=== PATIENT | male | born 1950 | race Caucasian/White ===

== ENCOUNTER 2018-06-10 12:41 | Emergency (ER) | payer OTHER ==
--- OUTSIDE RECORDS SUMMARY | 2018-06-10 12:43 | XMS REPORT | Clinical Summary ---
:1950 Author Organization [facility] Address [address] [place] [address] Care Team Providers Name Role Phone Alanna Bullard Primary Care Provider Allergies No Known Allergies Medications Medication Sig Dispensed Refills Start Date End Date Status DEXILANT 60 mg Take 60 mg 0 09/29/2016 Active capsule by mouth daily. albuterol (PROAIR Inhale 2 0 Active HFA,PROVENTIL puffs every HFA,VENTOLIN HFA) 90 6 (six) mcg/actuation inhaler hours as needed for wheezing. budesonide-formoterol Inhale 2 0 Active (SYMBICORT) 160-4.5 puffs daily. mcg/actuation inhaler tadalafil (CIALIS) 20 Take 20 mg 0 Active mg tablet by mouth daily as needed. aspirin (ECOTRIN) 81 Take 81 mg 0 Active MG enteric coated by mouth tablet daily. omega-3 fatty Take 1 g by 0 Active acids-fish oil (FISH mouth daily. OIL) 300-1,000 mg capsule multivitamin Take 1 0 Active (THERAGRAN) tablet tablet by mouth daily. pseudoepHEDrine Take 30 mg 0 Active (SUDAFED) 30 MG by mouth tablet every 4 (four) hours as needed for congestion. JENTADUETO 2.5-1,000 0 03/16/2017 Active mg tablet ferrous sulfate 325 Take 325 mg 0 Active (65 FE) MG tablet by mouth daily with breakfast. fenofibrate (LOFIBRA) Take 1 90 tablet 3 05/31/2018 Active 54 MG tablet tablet (54 mg total) by mouth nightly. simvastatin (ZOCOR) Take 1 90 tablet 3 05/31/2018 Active 10 MG tablet tablet (10 mg total) by mouth nightly. clopidogrel (PLAVIX) Take 1 90 tablet 3 05/31/2018 Active 75 mg tablet tablet (75 mg total) by mouth daily. simvastatin (ZOCOR) Take 1 90 tablet 3 04/10/2017 05/31/2018 Discontinued 10 MG tablet tablet (10 mg total) by mouth nightly. fenofibrate (LOFIBRA) Take 1 90 tablet 3 04/10/2017 05/31/2018 Discontinued 54 MG tablet tablet (54 mg total) by mouth nightly. clopidogrel (PLAVIX) Take 1 90 tablet 3 04/20/2017 04/20/2018 75 mg tablet tablet (75 mg total) by mouth daily. clopidogrel (PLAVIX) Take 75 mg 0 05/31/2018 Discontinued 75 mg tablet by mouth daily. Active Problems Problem Noted Date Coronary artery disease involving [place] coronary artery of [place] heart 10/10 without angina pectoris PAD (peripheral artery disease) 10/10/2016 Bilateral carotid artery disease 10/10/2016 Encounters Date Type Specialty Care Team Description 05/31/2018 Orders Only Cardiology Martin Tolentino MA 05/31/2018 Refill Cardiology Venkat Davis MD Med Refill 05/31/2018 Refill Neli Han MD 05/31/2018 Refill Cardiology Venkat Davis MD Med Refill 04/16/2018 Office Visit Cardiology Venkat Davis MD PAD (peripheral artery disease) (HCC) (Primary Dx); Coronary artery disease involving [place] coronary artery of [place] heart without angina pectoris 10/16/2017 Office Visit Cardiology Venkat Davis MD PAD (peripheral artery disease) (Primary Dx); Coronary artery disease involving [place] coronary artery of [place] heart without angina pectoris; Bilateral carotid artery disease after 06/09/2017 Immunizations Name Dates Previously Given Next Due Influenza Trivalent 03/15/2017 Family History Medical History Relation Name Comments COPD Father Emphysema Father Breast cancer Mother Diabetes Mother Heart disease Mother Hyperlipidemia Mother Relation Name Status Comments Father Mother Social History Tobacco Use Types Packs/Day Years Used Date Current Every Day Smoker Cigarettes 1.5 Started: 10/19/2016 Smokeless Tobacco: Never Used Tobacco Cessation: Ready to Quit: No; Counseling Given: Yes Alcohol Use Drinks/Week oz/Week Comments No Sex Assigned at Date Recorded Not on file Job Start Date Occupation Industry Not on file Not on file Not on file Travel History Travel Start Travel End No recent travel history available. Last Filed Vital Signs Vital Sign Reading Time Taken Blood Pressure 138/62 04/16/2018 10:21 AM DATA CAPTURE CLERK Pulse 87 04/16/2018 10:21 AM DATA CAPTURE CLERK Temperature - - Respiratory Rate - - Oxygen Saturation - - Inhaled Oxygen Concentration - - Weight 77.1 kg (170 lb) 04/16/2018 10:21 AM DATA CAPTURE CLERK Height 167.6 cm (5' 6") 04/16/2018 10:21 AM DATA CAPTURE CLERK Body Mass Index 27.44 04/16/2018 10:21 AM DATA CAPTURE CLERK Plan of Treatment Date Type Specialty Care Team Description 10/22/2018 Office Visit Cardiology Venkat Davis MD [address] [address] Health Maintenance Due Date Last Done Comments COLON CANCER SCREENING 1999 SHINGLES VACCINES (1 of 2) 1999 PNEUMOCOCCAL POLYSACCHARIDE VACCINE AGE 65 AND OVER 2014 PNEUMOCOCCAL-13 2014 INFLUENZA VACCINE 01/02/2018 03/15/2017 Implants Implanted Type Area [employer] Identity Management Consultant Device Shelf Model / Identifier Expiration Serial / Date Lot Stent Bili Protege Everflex Slf-Xpndbl 120cm [id number] - [id number] Coronary N/A : N/A [employer] 09/12/2018 [id number] 120 / Implanted: 10/19/2016 (Quantity not on file) Stents / [id number] Stent Vasclr Lfstnt Slf-Xpndbl 130cm [id number] Cath - [id number] Peripheral or N /A: N/A BARD PERIPHERAL 03/19/2017 [id number] / Implanted: 10/19/2016 (Quantity not on file) Biliary Stents VASCULAR / [id number] Results Not on fileafter 06/09/2017 Insurance Payer Benefit Plan / Group Subscriber ID Type Phone Address MEDICARE MEDICARE PART A AND B xxxxxxxxxx Medicare [place], [place] [employer] xxxxxxxx Commercial Advance Directives Patient has advance care planning documents on file. For more information, please contact:Douglas Dougherty[address] [place] [address]
[2018-06-10] MEDS ORDERED: ALBUTEROL 2.5 MG/3 ML NEB SOL ONE (15:53)
[2018-06-10] MEDS ORDERED: IPRATROPIUM BROM 0.5MG/2.5ML ONE (15:53)
[2018-06-10] MEDS ORDERED: predniSONE 20 MG TAB ONE (15:54)
[2018-06-10 15:57] LABS: Absolute Lymphocytes (CBC) 1.2 K/uL (0.7-4.9); Absolute Monocytes 0.7 K/uL (0.1-1.3); Absolute Neutrophil 5.8 K/uL (1.8-8.0); Basophils % 0.9 % (0-1.3); Eosinophils % 1.9 % (0-4.4); Hematocrit 34.3 % (39.6-49.0); MPV 9.1 fL (7.6-11.3); Monocytes % 8.8 % (3.3-12.3); RBC Red Blood Cell Count 4.01 M/uL (4.33-5.43)
--- NOTE | 2018-06-10 16:01 | EKG ---
Test Date: 2018-06-10 Test Time: 15:38:36 [facility] Demonstration Agent: REDDY MEASUREMENT RESULTS: Intervals: Rate: 87 CT: 160 QRSD: 98 QT: 366 QTc: 440 [place]: P: 82 CT: 160 QRS: 79 T: 66 INTERPRETIVE STATEMENTS: Normal sinus rhythm Normal ECG Compared to ECG 09/11/2001 16:15:00 No significant changes Electronically Signed On 06-10-18 16:01:08 SAW STRAIGHTENER by Yousuf Santoyo
[2018-06-10 16:13] LABS: BUN Blood Urea Nitrogen 11 mg/dL (7-18); Bicarbonate 27 mmol/L (21-32); Glucose Level 117 mg/dL (74-106); Magnesium 2.4 mg/dL (1.8-2.4); NT PRO-BNP 89 pg/mL (<125); Potassium 3.8 mmol/L (3.5-5.1); Sodium Level 134 mmol/L (136-145); Troponin (Emerg Dept Use Only) < 0.02 ng/mL (0.0-0.045)
--- NOTE | 2018-06-10 17:13 | RAD REPORT ---
EXAM DESCRIPTION: Garry Rhodes (2 Views)06/10/2018 5:03 pm CLINICAL HISTORY: sob COMPARISON: None FINDINGS: The lungs appear clear of acute infiltrate. The heart is normal size IMPRESSION: No acute abnormalities displayed
--- NOTE | 2018-06-10 17:22 | ER ---
Nurse's Notes [facility] Name: Roland Lam Age: 68 yrs Sex: Male : 1950 Arrival Date: 06/10/2018 Time: 12:47 Bed 4 Private MD: None, None Diagnosis: Chronic obstructive pulmonary disease with (acute) exacerbation Presentation: 06/10 13:07 Presenting complaint: Patient states: shortness of breath when laying flat and/or ss exertion and chest congestion x 10 days. Denies fever. Also c/o sore throat and R ear pain x 2-3 days. Transition of care: patient was not received from another setting of care. Onset of symptoms was May 28, 2018. Risk Assessment: Do you want to hurt yourself or someone else? Patient reports no desire to harm self or others. Initial Sepsis Screen: Does the patient meet any 2 criteria? No. Patient's initial sepsis screen is negative. Does the patient have a suspected source of infection? No. Patient's initial sepsis screen is negative. Care prior to arrival: None. 13:07 Method Of Arrival: Ambulatory ss 13:07 Acuity: HOWARD 3 ss Triage Assessment: 17:00 General: Appears in no apparent distress. Behavior is calm, cooperative. Respiratory: iw Reports shortness of breath cough that is Onset: The symptoms/episode began/occurred yesterday, the patient has mild shortness of breath. Historical: - Allergies: 13:10 No Known Allergies; ss - PMHx: 13:10 COPD; Diabetes - NIDDM; High Cholesterol; CAD; ss - PSHx: 13:10 cardiac stents; Cholecystectomy; ss - Immunization history:: Adult Immunizations up to date. - Social history:: Smoking status: Patient uses tobacco products, 1 ppd- 1.5 ppd. - Ebola Screening: : Patient denies exposure to infectious person Patient denies travel to an Ebola-affected area in the 21 days before illness onset. Screenin:30 Abuse screen: Denies threats or abuse. Denies injuries from another. Nutritional sg screening: No deficits noted. Tuberculosis screening: No symptoms or risk factors identified. Never had TB. Fall Risk None identified. Assessment: 15:00 General: Appears in no apparent distress. comfortable, well groomed, well developed, sg well nourished, Behavior is calm, cooperative, appropriate for age. Pain: Complains of pain in sore throat Quality of pain is described as tender, worsens with swallowing. Neuro: No deficits noted. Cardiovascular: Heart tones S1 S2 present Capillary refill is brisk in bilateral fingers Patient's skin is warm and dry. Rhythm is sinus rhythm. Respiratory: Airway is patent Respiratory effort is even, unlabored, Respiratory pattern is regular, symmetrical, Breath sounds are coarse. GI: No signs and/or symptoms were reported involving the gastrointestinal system. : No signs and/or symptoms were reported regarding the genitourinary system. EENT: Nares are clear bilaterally Oral mucosa is moist. Throat is clear. Derm: Skin is pink, warm \T\ dry. Musculoskeletal: No signs and/or symptoms reported regarding the musculoskeletal system. Vital Signs: 13:10 BP 152 / 58; Pulse 91; Resp 17; Temp 97.0(TE); Pulse Ox 99% on R/A; Weight 72.57 kg; ss Height 5 ft. 6 in. (167.64 cm); Pain 0/10; 15:00 BP 142 / 66; Pulse 78; Resp 17; Temp 97.0; Pulse Ox 100% on R/A; sg 13:10 Body Mass Index 25.82 (72.57 kg, 167.64 cm) ss ED Course: 12:47 Patient arrived in ED. sb2 12:47 None, None is Private Physician. sb2 13:08 Triage completed. ss 13:10 Arm band placed on right wrist. ss 15:00 Patient has correct armband on for positive identification. iw 15:02 Carmina Rutherford [facility]-C [facility] kb 15:02 Jair Fletcher MD is Attending Physician. kb 15:04 Shana Hollingsworth, KWAN is Primary Nurse. iw 15:45 EKG done, by ct scan technician. reviewed by Carmina KILPATRICK. dt2 17:03 Chest Pa And Lat (2 Views) XRAY In Process Unspecified. EDMS 17:30 No provider procedures requiring assistance completed. IV discontinued, intact, sg bleeding controlled, No redness/swelling at site. Pressure dressing applied. Administered Medications: 15:54 Drug: Albuterol 2.5 mg Route: Inhalation; iw 15:54 Drug: AtroVENT Aerosol 0.5 mg Route: Inhalation; iw 15:54 Drug: predniSONE 40 mg Route: PO; iw Outcome: 17:21 Discharge ordered by . wilfredo 17:30 Discharged to home ambulatory, with family. sg 17:30 Condition: good 17:30 Discharge instructions given to patient, Instructed on discharge instructions, follow up and referral plans. medication usage, safety practices, Demonstrated understanding of instructions, follow-up care, Prescriptions given X 2. 17:33 Patient left the ED. Signatures: Dispatcher [employer] EDIL Carmina Rutherford, PERSONNEL RESEARCH SCIENTIST-C PERSONNEL RESEARCH SCIENTIST-Chip Aguilar RN RN Shana Hollingsworth RN RN iw Smirch, Shelby, RN RN Tayler Owens sb2 Gardenia Duncan dt2
--- NOTE | 2018-06-10 17:22 | EDPHYS ---
Physician Documentation [facility] Name: Roland Lam Age: 68 yrs Sex: Male : 1950 Arrival Date: 06/10/2018 Time: 12:47 Bed 4 Private MD: None, None ED Physician Jair Fletcher HPI: 06/10 16:02 This 68 yrs old Male presents to ER via Ambulatory with complaints of kb Shortness Of Breath, Sore Throat. 16:01 The patient has shortness of breath with light activity, and the patient has a history kb of COPD. Duration: The symptoms are continuous. The patient has not experienced similar symptoms in the past. The patient has not recently seen a physician. 16:02 Onset: The symptoms/episode began/occurred 10 day(s) ago. The patient's shortness of kb breath is aggravated by exertion, light activity, walking, is alleviated by rest. Associated signs and symptoms: Pertinent positives: productive cough, Pertinent negatives: chest pain, non-productive cough, diaphoresis, dizziness, fever, hemoptysis, loss of consciousness, nausea, numbness in extremities, visual changes, vomiting. Severity of symptoms: At their worst the symptoms were moderate in the emergency department the symptoms are unchanged. Pt reports shortness of breath for over a week that has been getting worse. Reports productive cough with green sputum. Denies fever. Denies orthopnea. States he got up in the middle of the night to use the restroom, became short of breath after walking back and forth so he had to catch his breath before laying back down to go to sleep. Historical: - Allergies: 13:10 No Known Allergies; ss - PMHx: 13:10 COPD; Diabetes - NIDDM; High Cholesterol; CAD; ss - PSHx: 13:10 cardiac stents; Cholecystectomy; ss - Immunization history:: Adult Immunizations up to date. - Social history:: Smoking status: Patient uses tobacco products, 1 ppd- 1.5 ppd. - Ebola Screening: : Patient denies exposure to infectious person Patient denies travel to an Ebola-affected area in the 21 days before illness onset. ROS: 15:59 Constitutional: Negative for fever, chills, and weight loss, Neck: Negative for injury, kb pain, and swelling, Cardiovascular: Negative for chest pain, palpitations, and edema, Abdomen/GI: Negative for abdominal pain, nausea, vomiting, diarrhea, and constipation, Back: Negative for injury and pain, : Negative for injury, bleeding, discharge, and swelling, MS/Extremity: Negative for injury and deformity, Skin: Negative for injury, rash, and discoloration, Neuro: Negative for headache, weakness, numbness, tingling, and seizure. 15:59 ENT: Positive for ear pain, sore throat. 15:59 Respiratory: Positive for cough, with green sputum, dyspnea on exertion, shortness of breath, Negative for hemoptysis, orthopnea, pleurisy, sputum production, wheezing. Exam: 16:00 Constitutional: This is a well developed, well nourished patient who is awake, alert, kb and in no acute distress. Head/Face: Normocephalic, atraumatic. ENT: Nares patent. No nasal discharge, no septal abnormalities noted. Tympanic membranes are normal and external auditory canals are clear. Oropharynx with no redness, swelling, or masses, exudates, or evidence of obstruction, uvula midline. Mucous membranes moist. Neck: Trachea midline, no thyromegaly or masses palpated, and no cervical lymphadenopathy. Supple, full range of motion without nuchal rigidity, or vertebral point tenderness. No Meningismus. Chest/axilla: Normal chest wall appearance and motion. Nontender with no deformity. No lesions are appreciated. Cardiovascular: Regular rate and rhythm with a normal S1 and S2. No gallops, murmurs, or rubs. Normal PMI, no JVD. No pulse deficits. Abdomen/GI: Soft, non-tender, with normal bowel sounds. No distension or tympany. No guarding or rebound. No evidence of tenderness throughout. Skin: Warm, dry with normal turgor. Normal color with no rashes, no lesions, and no evidence of cellulitis. MS/ Extremity: Pulses equal, no cyanosis. Neurovascular intact. Full, normal range of motion. Neuro: Awake and alert, GCS 15, oriented to person, place, time, and situation. Cranial nerves II-XII grossly intact. Motor strength 5/5 in all extremities. Sensory grossly intact. Cerebellar exam normal. Normal gait. 16:00 Respiratory: the patient does not display signs of respiratory distress, Respirations: normal, Breath sounds: decreased breath sounds, that are mild, that are moderate, are located in both bases. Vital Signs: 13:10 BP 152 / 58; Pulse 91; Resp 17; Temp 97.0(TE); Pulse Ox 99% on R/A; Weight 72.57 kg; ss Height 5 ft. 6 in. (167.64 cm); Pain 0/10; 15:00 BP 142 / 66; Pulse 78; Resp 17; Temp 97.0; Pulse Ox 100% on R/A; sg 13:10 Body Mass Index 25.82 (72.57 kg, 167.64 cm) ss MDM: 15:02 Patient medically screened. kb 15:59 Data reviewed: vital signs, nurses notes. Data interpreted: Pulse oximetry: on room air kb is 99 %. Interpretation: normal. 17:21 Counseling: I had a detailed discussion with the patient and/or guardian regarding: the kb historical points, exam findings, and any diagnostic results supporting the discharge/admit diagnosis, lab results, radiology results, the need for outpatient follow up, a family practitioner, to return to the emergency department if symptoms worsen or persist or if there are any questions or concerns that arise at home. 17:22 ED course: Pt feeling better after neb treatment. Denies shortness of breath at this kb time. Pt has hx of COPD and is currently a smoker. Prescription for zithromax given for worsening symptoms or if he starts to run fever because he is unable to get into PCP until 07/02/18. Pt educated that antibiotics are not indicated at this time. . 06/10 15:12 Order name: Basic Metabolic Panel kb 06/10 15:12 Order name: CBC with Diff kb 06/10 15:12 Order name: Magnesium; Complete Time: 16:16 kb 06/10 15:12 Order name: NT PRO-BNP; Complete Time: 16:16 kb 06/10 15:12 Order name: Troponin (emerg Dept Use Only); Complete Time: 16:16 kb 06/10 15:13 Order name: Basic Metabolic Panel; Complete Time: 16:16 EDMS 06/10 15:12 Order name: EKG; Complete Time: 15:13 kb 06/10 15:12 Order name: Cardiac monitoring; Complete Time: 15:54 kb 06/10 15:12 Order name: Chest Pa And Lat (2 Views) XRAY; Complete Time: 17:15 kb 06/10 15:13 Order name: CBC with Automated Diff; Complete Time: 16:11 EDMS 06/10 15:12 Order name: EKG - Nurse/Tech; Complete Time: 15:55 kb 06/10 15:12 Order name: IV Saline Lock; Complete Time: 15:42 kb 06/10 15:12 Order name: Labs collected and sent; Complete Time: 15:42 kb 06/10 15:12 Order name: O2 Per Protocol; Complete Time: 15:31 kb 06/10 15:12 Order name: O2 Sat Monitoring; Complete Time: 15:31 kb Administered Medications: 15:54 Drug: Albuterol 2.5 mg Route: Inhalation; iw 15:54 Drug: AtroVENT Aerosol 0.5 mg Route: Inhalation; iw 15:54 Drug: predniSONE 40 mg Route: PO; iw Disposition: 17:56 Co-signature as Attending Physician, Jair Fletcher MD. rn Disposition: 06/10/18 17:21 Discharged to Home. Impression: Chronic obstructive pulmonary disease with (acute) exacerbation. - Condition is Stable. - Discharge Instructions: Chronic Obstructive Pulmonary Disease Exacerbation. - Prescriptions for Prednisone 20 mg Oral Tablet - take 1 tablet by ORAL route once daily for 5 days; 5 tablet. Zithromax Z- Keagan 250 mg Oral Tablet - take 1 tablet by ORAL route as directed for 5 days Day 1 - take two (2) tablets one time. Day 2, 3, 4 , 5 take one (1) tablet once daily.; 6 tablet. - Medication Reconciliation Form, Thank You Letter, Antibiotic Education, Prescription Opioid Use form. - Follow up: Emergency Department; When: As needed; Reason: Worsening of condition. Follow up: Private Physician; When: 2 - 3 days; Reason: Recheck today's complaints, Continuance of care, Re-evaluation by your physician. Signatures: Dispatcher [employer] [facility] [place] Carmina Rutherford, DUMP TRUCK DRIVER-C DUMP TRUCK DRIVER-Ckb Shana Hollingsworth, KWAN BOWENS iw Jair Fletcher MD MD rn Smirch, Shelby, RN RN ss Corrections: (The following items were deleted from the chart) 17:03 13:12 Chest Single View+[email or web address] ordered. [facility] 17:33 17:21 06/10/2018 17:21 Discharged to Home. Impression: Chronic obstructive pulmonary ss disease with (acute) exacerbation. Condition is Stable. Forms are Medication Reconciliation Form, Thank You Letter, Antibiotic Education, Prescription Opioid Use. Follow up: Emergency Department; When: As needed; Reason: Worsening of condition. Follow up: Private Physician; When: 2 - 3 days; Reason: Recheck today's complaints, Continuance of care, Re-evaluation by your physician. kb
== END 2018-06-10 17:33 | disposition home or self-care (01) ==
LOC: ER 12:41
DX: J44.1 Chronic obstructive pulmonary disease with (acute) exacerbation (principal); I25.10 Atherosclerotic heart disease of native coronary artery without angina pectoris; E11.9 Type 2 diabetes mellitus without complications; E78.00 Pure hypercholesterolemia, unspecified; F17.210 Nicotine dependence, cigarettes, uncomplicated; Z95.5 Presence of coronary angioplasty implant and graft
CPT/HCPCS: 36415; 71046; 80048; 83735; 83880; 84484; 85025; 93005; 99285; J7512

== ENCOUNTER 2021-03-28 07:33 | Day surgery (SDC) | payer OTHER ==
[2021-03-28] MEDS ORDERED: NA CHLORIDE 0.9% 1,000 ML ONE ×2 (08:19→10:03)
[2021-03-28] MEDS ORDERED: KETOROLAC 30 MG/ML INJ ONE (08:35)
[2021-03-28] MEDS ORDERED: FENTANYL CITR 100 MCG/2 ML ONE (08:35)
[2021-03-28] MEDS ORDERED: MIDAZOLAM HCL 2 MG/2 ML INJ ONE (08:35)
[2021-03-28] MEDS ORDERED: ONDANSETRON 4 MG/2 ML VIAL ONE (08:35)
[2021-03-28] MEDS ORDERED: LIDOCAINE 2% MPF 5 ML VIAL ONE (08:35)
[2021-03-28] MEDS ORDERED: dexAMETHasone 10 MG/ML VIAL ONE (08:35)
[2021-03-28] MEDS ORDERED: propofoL 200 MG/20 ML VIAL IV ONE ×4 (08:35→11:13)
[2021-03-28] MEDS ORDERED: ROCURONIUM 50 MG/5 ML VIAL IV ONE ×2 (08:36→10:32)
[2021-03-28] MEDS ORDERED: EPINEPHRINE/PF 1 MG/ML AMP ONE (08:36)
[2021-03-28] MEDS ORDERED: LIDOCAINE 1% W/EPI 1:100,000 MDV 20 ML VIAL ONE (08:37)
[2021-03-28] MEDS ORDERED: SUGAMMADEX SODIUM 200 MG/2 ML VIAL IV ONE (08:42)
[2021-03-28 13:19] VITALS: BP 145/49; TEMP 97; O2SAT 96
--- NOTE | 2021-03-30 00:07 | OP ---
Date of Procedure: 03/28/2021 Surgeon: AMY MANCINI Preoperative Diagnosis: Bilateral arytenoid neoplasms -- uncertain behavior. 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 2.Gastroesophageal reflux disease. 3.Laryngitis. Procedures: 1.Flexible esophagogastroduodenoscopy. 2.Microsuspension direct laryngoscopy with biopsies of bilateral arytenoids and false vocal cord danial plasms. Anesthesia: Total IV anesthesia was administered. Epinephrine 1:1000 soaked pledgets were used for vasoconstriction. Specimens: Obtained from bilateral arytenoids and false vocal cord mucosa and sent for permanent sec tions in formalin. Estimated Blood Loss: Less than 2 mL. Findings: Laryngeal edema/erythema with evidence of papillomatous lesions involving bilateral aryten oid mucosa, specifically bilateral aryepiglottic folds on the laryngeal side and extending into bilat eral false vocal cords. Mild swelling at the cricopharyngeus and esophagogastric junctions, and evid ence of mucus and gastritis in the stomach antrum. Complications: None. Disposition: Stable. The patient tolerated the procedure well. Indication For Procedure: The patient is a pleasant a 71-year-old male who has been smoking since hi s adolescence, who presented to my outpatient clinic with a chronic progressive 2-year history of sor e throat and throat swelling. Upon examination in my office, a flexible laryngoscope revealed friabl e papillomatous lesions involving bilateral arytenoid mucosa and possibly extending down into the fal se vocal cord area. These were indications to bring the patient to the operative suite for the above -mentioned procedure. He understood. All questions were answered. Risks versus benefits and compli cations explained in detail and consent form was signed, which was placed in the chart. Description Of Procedure: The patient was transferred from the preoperative holding area to the oper ative suite by Department of Anesthesia, placed on the operating table supine and sedated in normal f ashion. He was intubated easily, although the airway was slightly anterior. Once the tube was secur ed, I lubricated the flexible esophagoscope and gently inserted along the right pharyngeal wall. Aft er insufflating, I was able to easily pass through the cricopharyngeal opening, which was slightly ed ematous and erythematous. While insufflating, I was able to advance the scope all the way to the sto mach. There was evidence of gastric secretions and mild gastritis, but no evidence of ulcerations. I was able to advance into the proximal section of the duodenum, which appeared normal. While withdr awing, I did a retroflexion view of the stomach and this revealed mild gastritis. While suctioning a ir, I was able to withdraw the scope to the level of the Z-line area at the esophagogastric junction and there was no evidence of erosion, ulceration, strictures, or evidence of Bird esophagitis. I then withdrew the scope while suctioning air and I looked at the distal mid and proximal portions of the esophagus and I did not find any other abnormalities. The scope was completely withdrawn. Next, a small shoulder roll was placed and the head was slightly extended. I used a bite guard to pr otect the upper teeth. The anterior commissure laryngoscope was inserted into the oral cavity and ad vanced along the endotracheal tube until the epiglottis was brought into view. The epiglottis appear ed normal. I did not discern any abnormal lesions. I then advanced underneath the epiglottis until the vocal cords were visualized. At this point, I suspended the Lewy suspension arm from the [facility] and. I then utilized a rigid telescope and inserted through the opening of the laryngoscope and took photo for documentation of the areas in question. The patient had diffuse erythema and edema of the laryngeal complex and papillomatous lesions were visualized posteriorly along the laryngeal side of the bilateral aryepiglottic folds and extending into bilateral false vocal cords. I took multiple bi opsies from bilateral false vocal cords and aryepiglottic folds. These were submitted to Pathology f or evaluation. The true vocal cords were glistening without any mucosal abnormalities. At this poin t, the scope was de-suspended slightly and withdrawn slightly, then re-suspended. We then deflated t he endotracheal tube and I used a rigid bronchoscope and advanced through the opening of the laryngos cope, and I was able to get a very abbreviated bronchus exam, which demonstrated evidence of mucosal irritation, but no definitive discrete lesions. The scope was withdrawn and the endotracheal tube wa s readvanced into the airway and the cuff was reinflated. I then de-suspended the laryngoscope and w ithdrew to the area of the hypopharynx and vallecula, and oropharynx and base of tongue and there wer e no abnormalities visualized. The scope was completely removed and a bimanual palpation exam was pe rformed, which was normal. I also did not palpate any cervical lymphadenopathy. The mouth guard was removed and the patient was returned to Anesthesia for awakening, and he was taken to the recovery r oom without incident. He tolerated the procedure well and will be discharged home and will follow up after pathology results are obtained. JOSEY/JUANA Voice ID: [id number] Report ID: [id number]
== END 2021-03-28 13:00 | disposition home or self-care (01) ==
LOC: OR 07:33
PROVIDERS: ATTEND Otolaryngology Facial Plastic Surgery
PROC: 0CBT8ZX Excision of Right Vocal Cord, Via Natural or Artificial Opening Endoscopic, Diagnostic (ICD-10-PCS; 2021-03-28)
PROC: 0DJ08ZZ Inspection of Upper Intestinal Tract, Via Natural or Artificial Opening Endoscopic (ICD-10-PCS; principal; 2021-03-28 08:30)
PROC: 0CBV8ZX Excision of Left Vocal Cord, Via Natural or Artificial Opening Endoscopic, Diagnostic (ICD-10-PCS; 2021-03-28 08:30)
DX: C32.9 Malignant neoplasm of larynx, unspecified (principal); Z20.822 Contact with and (suspected) exposure to COVID-19
CPT/HCPCS: 82947; 88305 ×2; 43235; 31536; U0003; J2704 ×4; J0171; J2250; J3010; J1100; J7030 ×2; J2405

== ENCOUNTER 2021-07-15 13:46 | Emergency (ER) | payer OTHER ==
--- OUTSIDE RECORDS SUMMARY | 2021-07-15 13:54 | XMS REPORT | Clinical Summary ---
:1950 Author Organization [facility] MD Patel [facility] Address [address] [place] [address] Care Team Providers Name Role Phone Olivia Coleman DO Unavailable Slava Canseco MD Primary Care Provider MD Thang Unavailable Samantha Polk MD Unavailable Allergies No known active allergies Medications Medication Sig Dispensed Refills Start Date End Date Status cetirizine (ZyrTEC) 10 TAKE ONE (1) 0 03/15/2021 Active mg tablet TABLET(S) BY MOUTH ONCE A DAY. clopidogrel (PLAVIX) TAKE ONE (1) 0 03/15/2021 Active 75 mg tablet TABLET(S) BY MOUTH ONCE A DAY. Dexilant 60 mg capsule TAKE ONE (1) 0 04/13/2021 Active CAPSULE(S) BY MOUTH DAILY. fenofibrate TAKE ONE (1) 0 02/08/2021 Acti ve nanocrystallized TABLET(S) BY (TRICOR) 145 mg tablet MOUTH ONCE A DAY. metFORMIN (GLUCOPHAGE) TAKE ONE (1) 0 04/19/2021 Active 500 mg tablet TABLET(S) BY MOUTH TWICE A DAY. montelukast TAKE ONE (1) 0 04/07/2021 Acti ve (SINGULAIR) 10 mg TABLET(S) BY tablet MOUTH ONCE A DAY. fluoride, sodium, Apply to teeth 51 g 20 05/06/2021 Active (PREVIDENT) 1.1 % twice daily. dental [place] teeth with creamIndications: cream and spit Primary squamous cell out as directed. carcinoma of larynx, (Do not eat, Accretion on teeth drink or rinse for 30 minutes). albuterol (VENTOLIN Inhale 2 puffs by 0 Active HFA,PROAIR HFA) 90 mouth. mcg/puff inhaler aspirin 81 mg EC Take 81 mg by 0 04/25/2010 Active tablet mouth. budesonide-formoterol Inhale 2 puffs by 0 Active (SYMBICORT) 160-4.5 mouth twice mcg/actuation inhaler daily. Patient usually does it once a day at night. tadalafil (CIALIS) 20 Take 20 mg by 0 Active mg tablet mouth. ondansetron (ZOFRAN) 8 Take 1 tablet (8 30 tablet 05/17/2021 Active mg tabletIndications: mg) by mouth 2 Primary squamous cell every 8 (eight) carcinoma of larynx hours as needed for nausea or vomiting. gabapentin (Neurontin) Take 1 capsule 90 capsule 1 05/25/2021 Active 300 mg (300 mg) by mouth capsuleIndications: 3 (three) times a Primary squamous cell day. 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 Radiation dermatitis ferrous sulfate (iron) 0 08/16/2017 Active 325 mg (65 mg elemental iron per tablet) tablet Nicoderm CQ 21 mg/24 Apply 2 patch to 56 patch 0 06/08/2021 Active hr transdermal skin and change patchIndications: patch daily as Nicotine dependence directed for tobacco cessation (alternate sites). guaiFENesin Take 10 mL (200 473 mL 3 06/13/2021 A ctive (ROBITUSSIN) 100 mg/5 mg) by mouth 4 mL syrupIndications: (four) times a Primary squamous cell day. carcinoma of larynx, Thick sputum Additional Information Patient not taking. Reported on 07/08/2021 lidocaine (XYLOCAINE) 20 mg/mL Swish and swallow 5 100 mL 2 06/15/2021 Active (2%) viscous mL every 4 (four) solutionIndications: Oral hours as needed mucositis due to radiation (throat pain). traMADol (ULTRAM) 50 mg Take 1 tablet (50 60 tablet 0 06/15/19 Active tabletIndications: Oral mg) by mouth every 4 mucositis due to radiation (four) hours as needed for moderate pain or severe pain. magnesium oxide 500 mg Take 1 tablet (500 30 tablet 1 06/15/19 Active tabletIndications: Primary mg) by mouth daily. squamous cell carcinoma of larynx, Hypomagnesemia rosuvastatin (CRESTOR) 40 mg daily. 0 06/25/2021 Active tablet losartan (COZAAR) 100 mg tablet daily. 0 06/24/19 Active senna-docusate (SENOKOT-S) 8.6 Take 1-3 tablets by 100 tablet 3 06/29/2021 Active mg-50 mg tabletIndications: mouth twice daily. Primary squamous cell carcinoma of larynx, Constipation, not otherwise specified Additional Information Patient not taking. Reported on 07/08/2021 polyethylene glycol (GLYCOLAX) 17 Take 17 g by mouth 3 510 g 3 06/29/2021 Active gram/dose powderIndications: (three) times a day. Primary squamous cell carcinoma of larynx, Constipation, not otherwise specified Additional Information Patient not taking. Reported on 07/08/2021 cloNIDine HCl (Catapres) Take 1 tablet 10 tablet 0 07/01/2021 Active 0.1 mg (0.1 mg) by tabletIndications: mouth 3 (three) Hypertension times a day as needed for high blood pressure (Systolic blood pressure over 180, diastolic over 110). amLODIPine (NORVASC) 10 Give 1 tablet 30 tablet 3 07/13/2021 Active mg tabletIndications: (10 mg) per Essential hypertension NG-tube daily. folic acid (FOLVITE) 1 Take 1 tablet (1 30 tablet 3 07/13/2021 Active mg tabletIndications: mg) by mouth Hypokalemia, daily. Hypomagnesemia, Hypophosphatemia, Folate deficiency potassium-sodium Give 1 packet 30 packet 0 07/12/2021 Active phosphates (PHOS-NAK) per NG-tube 280 mg-160 mg-250 mg twice daily. powderIndications: Mix contents of Hypokalemia, 1 packet of the Hypomagnesemia, powder in 2 and Hypophosphatemia 1/2 ounces (75 mL) of water or juice. Stir until completely dissolved and drink the mixture right away after mixing. Do not save for later use. thiamine (VITAMIN B-1) Take 1 tablet 30 tablet 0 07/13/2021 Active 100 mg tab (100 mg) by tabletIndications: mouth daily. Hypokalemia, Hypomagnesemia, Hypophosphatemia potassium chloride Give 30 mL (40 900 mL 0 07/12/2021 Active (KAYCIEL) 20 mEq/15 mL mEq) per NG-tube solutionIndications: daily. Hypokalemia amoxicillin-clavulanate Take 1 tablet 5 tablet 0 07/12/2021 0 07/15 Active (Augmentin) 875 mg-125 (875 mg) by mg per mouth twice tabletIndications: Acute daily for 5 hypoxemic respiratory doses. failure, Aspiration pneumonia diazePAM (VALIUM) 5 mg Take 5 mg by 0 03/29/2021 Discontinued tablet mouth as needed. (St op Taking at Discharge) losartan (COZAAR) 50 mg Take 100 mg by 0 04/16/202106/29 Discontinued tablet mouth daily. (Dose a djustment) metoprolol tartrate TAKE ONE (1) 0 04/19/202107/12 Discontinued (LOPRESSOR) 50 mg tablet TABLET(S) BY 022 (Stop Taking at MOUTH TWICE A Discha rge) DAY WITH FOOD. simvastatin (ZOCOR) 10 TAKE ONE (1) 0 03/09/2021 Discontinued mg tablet TABLET(S) BY (Discon tinued by MOUTH EVERY another EVENING. clinician) Nicoderm CQ 21 mg/24 hr Apply 1 patch to 28 patch 0 06/08 Discontinued transdermal skin and change (R eorder) patchIndications: patch daily as Nicotine dependence directed for tobacco cessation (alternate sites). prochlorperazine Take 1 tablet 60 tablet 05/17/202107/13 Discontinued (Compazine) 10 mg (10 mg) by mouth tabletIndications: every 6 (six) Primary squamous cell hours as needed carcinoma of larynx for nausea or vomiting (if not controlled by Ondansetron). cloNIDine HCl (Catapres) Take 1 tablet 10 tablet 0 06/22/202107/01 Discontinued 0.1 mg (0.1 mg) (Reorder ) tabletIndications: mouth 3 (three) Hypertension times a day as needed for high blood pressure (Systolic blood pressure over 180, diastolic over 110). glycopyrrolate (RobinuL) Take 1 tablet (1 90 tablet 1 06/29/19 22 07/12 Discontinued 1 mg tabletIndications: mg) by mouth 2021 (Stop Taking at Primary squamous cell (four) times a Discharge) carcinoma of larynx, day. Thick sputum amoxicillin-clavulanate Take 1 tablet 2 tablet 0 07/13/2021 0 07/12 Discontinued (Augmentin) 875 mg-125 (875 mg) (Reorder) mg per mouth daily for tabletIndications: Acute 2 doses. 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 Cancer Staging: Clinical stage from 04/06: Stage III (cT3, cN0, cM0) - Signed by Yumi Desir MD on 05/11/2021 Laryngopharyngeal reflux 04/26/2021 Essential hypertension 10/16/2020 Coronary arteriosclerosis 10/10/2016 Chronic obstructive pulmonary disease 04/26/2016 Type 2 diabetes mellitus without complication 04/25/20 10 Resolved Problems Problem Noted Date Resolved Date Thick sputum 06/29/2021 06/29/2021 Diverticulosis of colon 06/29/2021 06/29/2021 History of polyp of colon 06/29/2021 06/29/2021 Impotence of organic origin 06/29/2021 06/29/2021 Intermittent claudication 06/29/2021 06/29/2021 Iron deficiency anemia 06/29/2021 06/29/2021 Mixed hyperlipidemia 06/29/2021 06/29/2021 Obese 06/29/2021 06/29/2021 Peripheral vascular angioplasty status with implants and 06/29/2021 grafts Seasonal allergic rhinitis 06/29/2021 06/29/2021 Tinnitus 06/29/2021 06/29/2021 Type 2 diabetes mellitus in obese 05/11/20212020 Overview: Left leg Tobacco use 04/26/2021 06/29/2021 Peripheral arterial occlusive disease 10/10/2016 Peripheral vascular disease 10/10/2016 06/29/2021 Encounters Date Type Specialty Care Team Description 07/15/2021 Telephone Proton Therapy Wayne Castro RN 07/13/2021 Telemedicine Head and Neck Yumi Desir, Primary squa mo cell Medical Oncology carcinoma of larynx Anca Maurer APN 07/13/2021 Telephone Thoracic Erasto, Medicine Anca Sullivan APN 07/13/2021 Orders Only Head and Neck Yumi Desir, Medical Oncology 07/12/2021 Orders Only Head and Neck Eliza Booth[facility] excellence specialist carcinoma o f larynx (Primary Dx) 07/08/2021 Hospital Encounter GIM/Phase 1 Josette Vasquez, Primary squamous cell carcinoma of larynx (Primary Dx); - Syncope; 07/12/2021 Eugene, Hypokalemia; Madelin Hypomagnesemia; MD Maryse Pneumonia; Etchegaray-Yong Severe protei n-calorie malnutrition, not otherwise specified; Ino kay MD Neuropathy due to type 2 diabetes mellit us; Mancia, Bilateral tinni tus; MD Cintia Serum creatinin e raised; Swallowing pain ful; Type 2 diabetes mellitus without complication; Multiple nodule s of lung; Nicotine depend ence; Essential hyper tension; Laryngopharynge al reflux; Acute hypoxemic respiratory failure; Aspiration pneu monia; Hypophosphatemi a; Folate deficien cy; 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 angina pectoris, not otherwise specified 07/08/2021 Hospital Encounter Proton Therapy Slava Canseco MD 07/08/2021 Hospital Encounter Proton Therapy Slava Canseco MD 07/08/2021 Travel 07/07/2021 Hospital Encounter Proton Therapy Slava Canseco MD 07/07/2021 Hospital Encounter Proton Therapy Slava Canseco MD 07/07/2021 Hospital Encounter Proton Therapy Slava Canseco MD 07/07/2021 Orders Only Proton Therapy Rj, Primary squam ous cell Alexandra, PA carcinoma of la rynx (Primary Dx) 07/07/2021 Orders Only Radiation Slava Canseco MD 07/07/2021 Travel 07/06/2021 Infusion Infusion Rj Primary squamou s cell Services Alexandra, PA carcinoma of larynx Ballena, (Primary Dx) Ten Rivera RN 07/06/2021 Nutrition Nutrition Slava Canseco MD Nancy, Maame Jamil RD 07/06/2021 Office Visit Head and Neck Slava Canseco Primary squamo us cell Medical Oncology MD Nick carcinoma of larynx Anca Maurer APN 07/06/2021 Hospital Encounter Vascular Access Slava Canseco and Procedures MD Leela Romero, Shwetha Castaneda RN 07/06/2021 Hospital Encounter Proton Therapy Slava Canseco MD 07/06/2021 Hospital Encounter Proton Therapy Slava Canseco MD 07/06/2021 Orders Only Proton Therapy Rj Primary squam ous cell Alexandra, PA carcinoma of la rynx (Primary Dx) 07/06/2021 Orders Only Proton Therapy Gloria Primary squam ous cell Wayne Singh RN carcinoma of l arynx (Primary Dx) 07/06/2021 Orders Only Proton Therapy Rj Primary squam ous cell Alexandra, PA carcinoma of la rynx (Primary Dx) 07/06/2021 Travel 07/05/2021 Hospital Encounter Proton Therapy Slava Canseco MD 07/05/2021 Travel 07/04/2021 Hospital Encounter Infusion Yumi Desir, Primary squamous cell Services carcinoma of larynx Yajaira, (Primary Dx) KWAN Maldonado 07/04/2021 Hospital Encounter Proton Therapy Slava Canseco MD 07/04/2021 Hospital Encounter Lab Yumi Desir, Primary squamous cell MD carcinoma of la rynx 07/04/2021 Travel 07/01/2021 Hospital Encounter Proton Therapy Slava Canseco MD 07/01/2021 Hospital Encounter Proton Therapy Rj, Primary squamous cell carcinoma of larynx; OUMAR Morris Severe protein- calorie malnutrition, not otherwise specified 07/01/2021 Documentation Speech Pathology Crista Connolly 07/01/2021 Telephone Radiation Andring, Oncology Caprice Antonio MD 07/01/2021 Orders Only Proton Therapy Rj, Essential hyp ertension (Primary Dx); OUMAR Morris Primary squamou s cell carcinoma of larynx 07/01/2021 Orders Only Proton Therapy Rj, Hypertension (Primary OUMAR Morris Dx) 07/01/2021 Travel 06/30/2021 Hospital Encounter Proton Therapy Slava Canseco MD 06/30/2021 Orders Only Head and Neck Erasto, Laryngopharyng eal reflux (Primary Dx); Medical Oncology Anca Sullivan APN Primary s quamous cell carcinoma of larynx 06/30/2021 Travel 06/29/2021 Office Visit Head and Neck Yumi Desir, 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); Medical Oncology Swallowing painful; Essential hyper tension 06/29/2021 Hospital Encounter Proton Therapy Slava Canseco MD 06/29/2021 Hospital Encounter Proton Therapy Slava Canseco MD 06/29/2021 Orders Only Proton Therapy Slava Canseco Primary squam ous cell carcinoma of larynx (Primary Dx); MD Nick Severe protein- calorie malnutrition, not otherwise specified 06/29/2021 Documentation Proton Therapy Maame Cruz, ANDRÉS 06/29/2021 Orders Only Radiation Rj, 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); Oncology OUMAR Morris Thick sputum; Constipation, n ot otherwise specified 06/29/2021 Travel 06/28/2021 Hospital Encounter Proton Therapy Slava Canseco MD 06/28/2021 Travel 06/27/2021 Infusion Infusion Yumi Desir, Primary squam ous cell Services MD carcinoma of larynx Francisco, (Primary Dx) Christy Gallego RN 06/27/2021 Hospital Encounter Proton Therapy Slava Canseco MD 06/27/2021 Hospital Encounter Lab Yumi Desir, Primary squamous cell MD carcinoma of la rynx 06/27/2021 Travel 06/24/2021 Hospital Encounter Audiology Slava Canseco Sensorine ural hearing MD Nick loss, bilateral Kerline, (Primary Dx) Candy, Murphy 06/24/2021 Hospital Encounter Proton Therapy Slava Canseco MD 06/24/2021 Travel 06/24/2021 Orders Only Head and Neck Yumi Desir, Medical Oncology 06/23/2021 Hospital Encounter Proton Therapy Slava Canseco MD 06/23/2021 Hospital Encounter Proton Therapy Slava Canseco MD 06/23/2021 Travel 06/23/2021 Documentation Proton Therapy NancyMaame, ANDRÉS 06/23/2021 Orders Only Head and Neck Erasto, Primary squamo us cell Medical Oncology Anca Sullivan APN carcinoma of larynx (Primary Dx) 06/22/2021 Emergency Emergency Jerel, Hypertension (P rimary Dx); Medicine MD Bela Type 2 diabetes mellitus without complication; Primary squamou s cell carcinoma of larynx 06/22/2021 Hospital Encounter Proton Therapy Slava Canseco MD 06/22/2021 Travel 06/21/2021 Hospital Encounter Proton Therapy Slava Canseco MD 06/21/2021 Hospital Encounter Proton Therapy Rj, Primary squamous cell OUMAR Morris carcinoma of larynx Slava Canseco MD 06/21/2021 Documentation Radiation Slava Canseco Oncology MD Nick 06/21/2021 Travel 06/20/2021 Hospital Encounter Infusion Yumi Desir, Primary squamous cell Services carcinoma of larynx Panganibaamanda, (Primary Dx) Sam Garzon RN 06/20/2021 Hospital Encounter Lab Yumi Desir, Primary squamous cell MD carcinoma of la rynx 06/20/2021 Travel 06/17/2021 Hospital Encounter Proton Therapy Slava Canseco MD 06/17/2021 Orders Only Head and Neck Alyse Polk Medical Oncology Denise Nuñez 06/17/2021 Orders Only Proton Therapy Rj, Primary squam ous cell OUMAR Morris carcinoma of la rynx (Primary Dx) 06/17/2021 Travel 06/16/2021 Hospital Encounter Proton Therapy Slava Canseco MD 06/16/2021 Travel 06/15/2021 Office Visit Head and Neck Slava Canseco Hypomagnesemia (Primary Dx); Medical Oncology MD Nick Primary squamous cell carcinoma of laryn x Anca Maurer [employer] 06/15/2021 Hospital Encounter Speech Pathology Ene Polk M, MD oropharyngeal phase Christy Chavez, [facility] 06/15/2021 Hospital Encounter Proton Therapy Slava Canseco MD 06/15/2021 Hospital Encounter Proton Therapy Slava Canseco MD 06/15/2021 Documentation Proton Therapy Nancy, Maame Jamil, RD 06/15/2021 Orders Only Radiation Slava Canseco Oral mucositis due to Oncology MD Nick radiation (Prim tisha Dx) 06/15/2021 Orders Only Proton Therapy Gloria, Primary squam ous cell Wayne Singh RN carcinoma of l arynx (Primary Dx) 06/15/2021 Travel 06/14/2021 Hospital Encounter Proton Therapy Slava Canseco MD 06/14/2021 Hospital Encounter Proton Therapy Slava Canseco MD 06/14/2021 Travel 06/13/2021 Hospital Encounter Infusion Yumi Desir, Primary squamous cell Services carcinoma of larynx Yue Alaniz, (Primary Dx) RN 06/13/2021 Hospital Encounter Proton Slava Landa MD 06/13/2021 Hospital Encounter Proton Slava Landa MD 06/13/2021 Hospital Encounter Lab Yumi Desir, Primary squamous cell MD carcinoma of la rynx 06/13/2021 Orders Only Radiation Rj, 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); Oncology OUMAR Morris Essential hyper tension 06/13/2021 Orders Only Radiation Rj, 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); Oncology OUMAR Morris Thick sputum 06/13/2021 Travel 06/10/2021 Hospital Encounter Proton Slava Landa MD 06/10/2021 Travel 06/09/2021 Hospital Encounter Proton Slava Landa MD 06/09/2021 Travel 06/08/2021 Hospital Encounter Proton Therapy Slava Canseco MD 06/08/2021 Hospital Encounter Proton Therapy Slava Canseco MD 06/08/2021 Hospital Encounter Speech Pathology Rj, Prima ry squamous cell Alexandra, OUMAR carcinoma of larynx Crista Connolly L 06/08/2021 Office Visit Head and Neck Yumi Desir, 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); Medical Oncology Swallowing painful; Serum creatinin e raised; Hypomagnesemia 06/08/2021 Documentation Proton Therapy NancyMaame castaneda, ANDRÉS 06/08/2021 Travel 06/07/2021 Hospital Encounter Proton Slava Landa MD 06/07/2021 Travel 06/06/2021 Hospital Encounter Proton Therapy Slava Canseco MD 06/06/2021 Hospital Encounter Infusion Yumi Desir, Primary squamous cell Services carcinoma of la rynx (Primary Dx) 06/06/2021 Hospital Encounter Lab Yumi Desir, Primary squamous cell MD carcinoma of la rynx 06/06/2021 Orders Only Head and Neck Alyse Polk Medical Oncology Denise Nuñez 06/06/2021 Orders Only Head and Neck Yumi Desir Medical Oncology 06/06/2021 Travel 06/02/2021 Hospital Encounter Proton Therapy Slava Canseco MD 06/02/2021 Documentation Radiation Romeo Hein MD 06/02/2021 Travel 06/01/2021 Office Visit Head and Neck [place] 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); Medical Oncology MD Brenda Encounter f or antineoplastic chemotherapy 06/01/2021 Hospital Encounter Proton Therapy Yue Stahl MD Lee, Anna, MD 06/01/2021 Hospital Encounter Proton Therapy Slava Canseco MD 06/01/2021 Travel 05/31/2021 Hospital Encounter Proton Therapy Slava Canseco MD 05/31/2021 Nutrition Nutrition Slava Canseco MD Nancy, Maame Jamil, ANDRÉS 05/31/2021 Hospital Encounter Proton Slava Landa MD 05/31/2021 Travel 05/30/2021 Infusion Infusion Yumi Desir, Primary squam ous cell Services carcinoma of larynx Cole Rosenthal, (Primary Dx) RN 05/30/2021 Hospital Encounter Proton Therapy Slava Canseco MD 05/30/2021 Hospital Encounter Lab Yumi Desir, Primary squamous cell MD carcinoma of la rynx 05/30/2021 Travel 05/25/2021 Office Visit Head and Neck Yumi Desir, Primary squa mous cell Medical Oncology carcinoma o f larynx 05/25/2021 Hospital Encounter Proton Therapy Slava Canseco MD 05/25/2021 Hospital Encounter Proton Therapy Slava Canseco MD 05/25/2021 Orders Only Proton Therapy Dick De La Rosa squam ous cell carcinoma of larynx (Primary Dx); OUMAR Morris 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; Radiation derma titis; Neuropathic farida n 05/25/2021 Travel 05/24/2021 Hospital Encounter Proton Slava Landa MD 05/24/2021 Travel 05/23/2021 Hospital Encounter Proton Therapy Slava Canseco MD 05/23/2021 Infusion Infusion Yumi Desir, Primary squam ous cell Services carcinoma of larynx Jacob, (Primary Dx) Roc Bertrand III, RN 05/23/2021 Hospital Encounter Lab Yumi Desir Primary squamous cell carcinoma of la rynx 05/23/2021 Hospital Encounter Proton Slava Landa MD 05/23/2021 Travel 05/22/2021 Hospital Encounter Proton Slava Landa MD 05/22/2021 Documentation Radiation [facility] Oncology MD Dulce 05/22/2021 Travel 05/19/2021 Nutrition Nutrition Slava Canseco MD Nancy, Maame Jamil RD 05/19/2021 Orders Only Head and Neck Ene Polk, Surgery MMD oropharyngeal p hase (Primary Dx) 05/18/2021 Hospital Encounter Radiology Rj, Primary s quamous cell OUMAR Morris carcinoma of larynx Cady Gómez [facility] 05/18/2021 Travel 05/16/2021 Hospital Encounter Proton Therapy Slava Canseco MD 05/16/2021 Orders Only Head and Neck Erasto, Medical Oncology Anca Sullivan APN 05/16/2021 Documentation Head and Neck Clemons, Surgery Huan H 05/12/2021 Documentation Radiation Slava Canseco Oncology MD Nick 05/12/2021 Multidisciplinary Visit Head and Neck Melita, Surgery OUMAR Lara 05/12/2021 Orders Only Head and Neck Yumi Desir, 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) 05/11/2021 Consult Head and Neck Yumi Desir, 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); Medical Oncology Tobacco use ; Multiple nodule s of lung 05/11/2021 Hospital Encounter Audiology Slava Canseco Sensorine ural hearing loss, bilateral (Primary Dx); MD Nick Primary squamou s cell carcinoma of larynx 05/11/2021 Hospital Encounter Proton Therapy Rj, Primary squamous cell OUMAR Morris carcinoma of larynx Slava Canseco MD 05/11/2021 Hospital Encounter Proton Therapy Rj, Primary squamous cell OUMAR Morris carcinoma of la rynx 05/11/2021 Clinical Support Andres De La Rosa, Encounter f or observation for other suspected exposure to biological agent ruled out (Primary Dx); OUMAR Morris Primary squamous cell carcinoma of laryn x Thao Baldwin MA 05/11/2021 Documentation Radiation Slava Canseco Oncology MD Nick 05/11/2021 Documentation Head and Neck Arina Robles Medical Oncology 05/11/2021 Documentation Radiation Slava Canseco Oncology MD Nick 05/11/2021 Orders Only Radiation Jose Martin Sweeney Oncology MD Diana PhD 05/11/2021 Travel 05/10/2021 Orders Only Proton Therapy Slava Canseco Primary squam ous cell MD Nick carcinoma of la rynx (Primary Dx) 05/06/2021 Hospital Encounter Dental Oncology Yobany Jovel ter for Elva, DDS observation for other suspected disea se ruled out 05/06/2021 Hospital Encounter Dental Oncology Burak Jovelar y squamous cell carcinoma of larynx (Primary Dx); Elva, DDS Encounter for o bservation for other suspected disease ruled out; Accretion on te eth; Xerostomia 05/06/2021 Hospital Encounter Speech Pathology Brandee De La Rosa ry squamous cell OUMAR Morris carcinoma of larynx Sara Harris, PhD 05/06/2021 Hospital Encounter Head and Neck Ene Polk Tobacco use (Primary Dx); Dmitriy Singh MD Primary squamou s cell carcinoma of larynx; Laryngopharynge al reflux; Peripheral vasc ular disease; Essential hyper tension; Disorder of car otid artery; 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, not otherwise specified; Chronic bronchi tis, not otherwise specified 05/06/2021 Travel 05/05/2021 Orders Only Dental Oncology Alduraiby, Encounter fo r Dixie observation for other MD Vadim suspected disea se ruled out (Prim tisha Dx) 05/04/2021 Hospital Encounter Proton Therapy Slava Canseco Primary squamous cell MD Nick carcinoma of la rynx (Primary Dx) 05/04/2021 Clinical Support Andres De La Rosa, Suspected C OVID-19 (Primary Dx); OUMAR Morris Primary squamous cell carcinoma of laryn x Trixie Hollingsworth, RN 05/04/2021 Hospital Encounter Lab Yumi Desir, Primary squamous cell MD carcinoma of la rynx 05/04/2021 Orders Only Radiation Jose Martin Sweeney Primary squamo us cell Oncology MD Diana carcinoma of la rynx PhD (Primary Dx) 05/04/2021 Travel 05/03/2021 Hospital Encounter Lab Rj, Primary s quamous cell OUMAR Morris carcinoma of la rynx 05/03/2021 Ancillary Procedure Radiology Rj Primary squamous cell OUMAR Morris carcinoma of [place] r[place] 05/03/2021 Travel 05/02/2021 Travel 05/01/2021 Orders Only Head and Neck Yumi Desir, 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) 04/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 Orders Only Radiology Yesenia Simmons MD 04/26/2021 Orders Only Proton Therapy Rj, 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/2021 Ancillary Procedure Radiology Cancer 04/22/2021 Ancillary Procedure Radiology Cancer 04/22/2021 Ancillary Procedure Radiology Cancer 04/22/2021 Ancillary Procedure Radiology Cancer 04/22/2021 Ancillary Procedure Radiology Cancer 04/22/2021 Ancillary Procedure Radiology Cancer 04/20/2021 Lab Requisition Steve Munguia MD Xu, Ya, MD after 07/15/2020 Immunizations Name Administration Dates Next Due Moderna SARS-CoV-2 Booster Vaccination 04/16/2021 Moderna SARS-CoV-2 Vaccination 08/07/2020, 07/10/2020 Surgical History Surgery Date Site/Laterality Comments CHOLECYSTECTOMY FEMORAL ARTERY STENT Left Left leg Medical History Medical History Date Comments Type 2 diabetes mellitus in obese Chronic obstructive pulmonary disease Coronary arteriosclerosis 10/10/2016 Disorder of carotid artery 10/10/2016 Essential hypertension 10/16/2020 Multiple nodules of lung 05/11/2021 Nicotine dependence 05/09/2021 Peripheral arterial occlusive disease Le ft leg Neuropathy due to type 2 diabetes mellitus 06/08/2021 Bilateral tinnitus 06/08/2021 Seasonal allergic rhinitis 06/29/2021 Peripheral vascular disease 10/10/2016 Diverticulosis of colon 06/29/2021 History of polyp of colon 06/29/2021 Impotence of organic origin 06/29/2021 Intermittent claudication 06/29/2021 Iron deficiency anemia 06/29/2021 Mixed hyperlipidemia 06/29/2021 Obese 06/29/2021 Peripheral vascular angioplasty status with implants and gra fts 06/29/2021 Thick sputum 06/29/2021 Tinnitus 06/29/2021 Tobacco use 04/26/2021 Family History Medical History Relation Name Comments Breast cancer Mother Relation Name Status Comments Mother Social History Tobacco Use Types Packs/Day Years Used Date Current Every Day Smoker Cigarettes 1.5 47 Sta rted: 05/09/1974 Smokeless Tobacco: Never Used Tobacco Cessation: Ready to Quit: Yes; C ounsladonna Given: Yes Comments: working on quitting, currently cut down to 1 ppd Alcohol Use Standard Drinks/Week Comments Not Currently 0 (1 standard drink = 0.6 oz pure alcoho l) Sex Assigned at Date Recorded Male 04/26/2021 3:55 PM [employer] Job Start Date Occupation Industry Not on file Not on file Not on file Travel History Travel Start Travel End [place] 04/28/2021 05/01/2021 COVID-19 Exposure Response Date Recorded In the last month, have you been in contact with No / Unsure 07/08/2021 9:44 PM [employer] someone who was confirmed or suspected to have Coronavirus / COVID-19? Obstetrics History Last Filed Vital Signs Vital Sign Reading Time Taken Comments Blood Pressure 149/62 07/12/2021 4:09 PM [employer] Pulse 95 07/12/2021 4:09 PM [employer] Temperature 36.6 C (97.9 F) 07/12/2021 4:09 PM [employer] Respiratory Rate 20 07/12/2021 4:09 PM [employer] Oxygen Saturation 96% 07/12/2021 4:09 PM [employer] Inhaled Oxygen Concentration - - Weight 68.5 kg (151 lb 0.2 oz) 07/08/2021 9:40 PM [employer] Height 165.7 cm (5' 5.24") 07/08/2021 9:40 PM [employer] Body Mass Index 24.95 07/08/2021 9:40 PM [employer] Plan of Treatment Date Type Specialty Care Team Description 07/19/2021 Nutrition Nutrition Slava Canseco MD [address] [place] [phone] Camilla Davenport, RD [address] [facility] [address] [place] [address] 07/20/2021 Office Visit Geriatric Medicine Ivan Estevez MD [address] [place] [address] [phone] (Wo rk) 07/20/2021 Appointment Audiology Slava Canseco MD [address] [place] [phone] Candy Churchill AuD [address] [place] [phone] 10/06/2021 Appointment Radiology Ene Polk MD [address] [place] [address] [phone] (Wo rk) 06/26/2022 Appointment Radiology Ene Polk MD [address] [place] [address] [phone] (Wo rk) Health Maintenance Due Date Last Done Comments COVID-19 Vaccination (3 - Moderna 05/14/2021 04/16/2021, , risk 4-dose series) 07/10/2020 Implants Implanted Type Area Head Gauge Unit Operator Device Identifier Shelf Exp iration Model / Serial Date / Lot Stent Stent Description: Left upper leg Stent Stent Description: left side/aorta Procedures Procedure Name Priority Date/Time Associated Comments Diagnosis POC GLUCOSE SCREEN Routine 07/12/2021 5:42 Resul ts for this PM [employer] procedure are i n the results section. CALCIUM LEVEL TOTAL Routine 07/12/2021 3:09 Resu lts for this PM [employer] procedure are i n the results section. .GLOMERULAR FILTRATION Routine 07/12/2021 3:09 R esults for this RATE PM [employer] procedure are i n the results section. SERUM CREATININE Routine 07/12/2021 3:09 Results for this PM [employer] procedure are i n the results section. ELECTROLYTE PANEL Routine 07/12/2021 3:09 Result s for this PM [employer] procedure are i n the results section. BLOOD UREA NITROGEN Routine 07/12/2021 3:09 Resu lts for this PM [employer] procedure are i n the results section. GLUCOSE LEVEL Routine 07/12/2021 3:09 Results fo r this PM [employer] procedure are i n the results section. PHOSPHORUS LEVEL Routine 07/12/2021 3:09 Results for this PM [employer] procedure are i n the results section. MAGNESIUM LEVEL Routine 07/12/2021 3:09 Results for this PM [employer] procedure are i n the results section. BASIC METABOLIC PANEL, Routine 07/12/2021 3:09 CALCIUM TOTAL PM [employer] POC GLUCOSE SCREEN Routine 07/12/2021 1:45 Resul ts for this PM [employer] procedure are i n the results section. POC GLUCOSE SCREEN Routine 07/12/2021 9:40 Resul ts for this AM [employer] procedure are i n the results section. MANUAL DIFFERENTIAL AM 07/12/2021 1:56 Resu lts for this AM [employer] procedure are i n the results section. Results CBC AM 07/12/2021 1:56 Results for this AM [employer] procedure are i n the results section. CALCIUM LEVEL TOTAL Routine 07/12/2021 1:56 Resu lts for this AM [employer] procedure are i n the results section. .GLOMERULAR FILTRATION Routine 07/12/2021 1:56 R esults for this RATE AM [employer] procedure are i n the results section. SERUM CREATININE Routine 07/12/2021 1:56 Results for this AM [employer] procedure are i n the results section. ELECTROLYTE PANEL Routine 07/12/2021 1:56 Result s for this AM [employer] procedure are i n the results section. BLOOD UREA NITROGEN Routine 07/12/2021 1:56 Resu lts for this AM [employer] procedure are i n the results section. GLUCOSE LEVEL Routine 07/12/2021 1:56 Results fo r this AM [employer] procedure are i n the results section. PHOSPHORUS LEVEL Routine 07/12/2021 1:56 Results for this AM [employer] procedure are i n the results section. MAGNESIUM LEVEL Routine 07/12/2021 1:56 Results for this AM [employer] procedure are i n the results section. BASIC METABOLIC PANEL, Routine 07/12/2021 1:56 CALCIUM TOTAL AM [employer] COMPLETE BLOOD COUNT W/ AM 07/12/2021 1:56 DIFFERENTIAL AM [employer] POC GLUCOSE SCREEN Routine 07/11/2021 10:09 Resul ts for this PM [employer] procedure are i n the results section. POC GLUCOSE SCREEN Routine 07/11/2021 8:52 Resul ts for this PM [employer] procedure are i n the results section. POC GLUCOSE SCREEN Routine 07/11/2021 4:27 Resul ts for this PM [employer] procedure are i n the results section. ECHOCARDIOGRAM 2D Routine 07/11/2021 4:16 Result s for this COMPLETE PM [employer] procedure are i n the results section. CALCIUM LEVEL TOTAL Routine 07/11/2021 2:33 Resu lts for this PM [employer] procedure are i n the results section. .GLOMERULAR FILTRATION Routine 07/11/2021 2:33 R esults for this RATE PM [employer] procedure are i n the results section. SERUM CREATININE Routine 07/11/2021 2:33 Results for this PM [employer] procedure are i n the results section. ELECTROLYTE PANEL Routine 07/11/2021 2:33 Result s for this PM [employer] procedure are i n the results section. BLOOD UREA NITROGEN Routine 07/11/2021 2:33 Resu lts for this PM [employer] procedure are i n the results section. GLUCOSE LEVEL Routine 07/11/2021 2:33 Results fo r this PM [employer] procedure are i n the results section. PHOSPHORUS LEVEL Routine 07/11/2021 2:33 Results for this PM [employer] procedure are i n the results section. MAGNESIUM LEVEL Routine 07/11/2021 2:33 Results for this PM [employer] procedure are i n the results section. BASIC METABOLIC PANEL, Routine 07/11/2021 2:33 CALCIUM TOTAL PM [employer] POC GLUCOSE SCREEN Routine 07/11/2021 12:33 Resul ts for this PM [employer] procedure are i n the results section. POC GLUCOSE SCREEN Routine 07/11/2021 8:52 Resul ts for this AM [employer] procedure are i n the results section. CALCIUM LEVEL TOTAL Routine 07/11/2021 2:00 Resu lts for this AM [employer] procedure are i n the results section. .GLOMERULAR FILTRATION Routine 07/11/2021 2:00 R esults for this RATE AM [employer] procedure are i n the results section. SERUM CREATININE Routine 07/11/2021 2:00 Results for this AM [employer] procedure are i n the results section. ELECTROLYTE PANEL Routine 07/11/2021 2:00 Result s for this AM [employer] procedure are i n the results section. BLOOD UREA NITROGEN Routine 07/11/2021 2:00 Resu lts for this AM [employer] procedure are i n the results section. GLUCOSE LEVEL Routine 07/11/2021 2:00 Results fo r this AM [employer] procedure are i n the results section. PHOSPHORUS LEVEL Routine 07/11/2021 2:00 Results for this AM [employer] procedure are i n the results section. MAGNESIUM LEVEL Routine 07/11/2021 2:00 Results for this AM [employer] procedure are i n the results section. BASIC METABOLIC PANEL, Routine 07/11/2021 2:00 CALCIUM TOTAL AM [employer] MANUAL DIFFERENTIAL AM 07/11/2021 1:46 Resu lts for this AM [employer] procedure are i n the results section. Results CBC AM 07/11/2021 1:46 Results for this AM [employer] procedure are i n the results section. COMPLETE BLOOD COUNT W/ AM 07/11/2021 1:46 DIFFERENTIAL AM [employer] EKG, 12-LEAD (PORTABLE) Routine 07/11/2021 EKG, 12-LEAD (PORTABLE) STAT 07/11/2021 POC GLUCOSE SCREEN Routine 07/10/2021 9:45 Resul ts for this PM [employer] procedure are i n the results section. POC GLUCOSE SCREEN Routine 07/10/2021 7:36 Resul ts for this PM [employer] procedure are i n the results section. POC GLUCOSE SCREEN Routine 07/10/2021 4:26 Resul ts for this PM [employer] procedure are i n the results section. CALCIUM LEVEL TOTAL Routine 07/10/2021 3:02 Resu lts for this PM [employer] procedure are i n the results section. .GLOMERULAR FILTRATION Routine 07/10/2021 3:02 R esults for this RATE PM [employer] procedure are i n the results section. SERUM CREATININE Routine 07/10/2021 3:02 Results for this PM [employer] procedure are i n the results section. ELECTROLYTE PANEL Routine 07/10/2021 3:02 Result s for this PM [employer] procedure are i n the results section. BLOOD UREA NITROGEN Routine 07/10/2021 3:02 Resu lts for this PM [employer] procedure are i n the results section. GLUCOSE LEVEL Routine 07/10/2021 3:02 Results fo r this PM [employer] procedure are i n the results section. PHOSPHORUS LEVEL Routine 07/10/2021 3:02 Results for this PM [employer] procedure are i n the results section. MAGNESIUM LEVEL Routine 07/10/2021 3:02 Results for this PM [employer] procedure are i n the results section. BASIC METABOLIC PANEL, Routine 07/10/2021 3:02 CALCIUM TOTAL PM [employer] POC GLUCOSE SCREEN Routine 07/10/2021 11:40 Resul ts for this AM [employer] procedure are i n the results section. MANUAL DIFFERENTIAL AM 07/10/2021 6:09 Resu lts for this AM [employer] procedure are i n the results section. Results CBC AM 07/10/2021 6:09 Results for this AM [employer] procedure are i n the results section. CALCIUM LEVEL TOTAL Routine 07/10/2021 6:09 Resu lts for this AM [employer] procedure are i n the results section. .GLOMERULAR FILTRATION Routine 07/10/2021 6:09 R esults for this RATE AM [employer] procedure are i n the results section. SERUM CREATININE Routine 07/10/2021 6:09 Results for this AM [employer] procedure are i n the results section. ELECTROLYTE PANEL Routine 07/10/2021 6:09 Result s for this AM [employer] procedure are i n the results section. BLOOD UREA NITROGEN Routine 07/10/2021 6:09 Resu lts for this AM [employer] procedure are i n the results section. GLUCOSE LEVEL Routine 07/10/2021 6:09 Results fo r this AM [employer] procedure are i n the results section. TROPONIN T AM 07/10/2021 6:09 Results for this AM [employer] procedure are i n the results section. PHOSPHORUS LEVEL Routine 07/10/2021 6:09 Results for this AM [employer] procedure are i n the results section. MAGNESIUM LEVEL Routine 07/10/2021 6:09 Results for this AM [employer] procedure are i n the results section. BASIC METABOLIC PANEL, Routine 07/10/2021 6:09 CALCIUM TOTAL AM [employer] COMPLETE BLOOD COUNT W/ AM 07/10/2021 6:09 DIFFERENTIAL AM [employer] POC GLUCOSE SCREEN Routine 07/09/2021 11:11 Resul ts for this PM [employer] procedure are i n the results section. BLOOD UREA NITROGEN STAT 07/09/2021 10:35 Resu lts for this PM [employer] procedure are i n the results section. CALCIUM IONIZED, VENOUS STAT 07/09/2021 10:35 Results for this PM [employer] procedure are i n the results section. .GLOMERULAR FILTRATION STAT 07/09/2021 10:35 R esults for this RATE PM [employer] procedure are i n the results section. SERUM CREATININE STAT 07/09/2021 10:35 Results for this PM [employer] procedure are i n the results section. ELECTROLYTE PANEL STAT 07/09/2021 10:35 Result s for this PM [employer] procedure are i n the results section. GLUCOSE LEVEL STAT 07/09/2021 10:35 Results fo r this PM [employer] procedure are i n the results section. TROPONIN T STAT 07/09/2021 10:35 Results for this PM [employer] procedure are i n the results section. PHOSPHORUS LEVEL STAT 07/09/2021 10:35 Results for this PM [employer] procedure are i n the results section. MAGNESIUM LEVEL STAT 07/09/2021 10:35 Results for this PM [employer] procedure are i n the results section. BASIC METABOLIC PANEL, STAT 07/09/2021 10:35 CALCIUM IONIZED PM [employer] LOWER RESPIRATORY Now 07/09/2021 5:33 Result s for this CULTURE W/ GRAM STAIN PM [employer] proced ure are in the results section. POC GLUCOSE SCREEN Routine 07/09/2021 4:30 Resul ts for this PM [employer] procedure are i n the results section. VASCULAR ACCESS Routine 07/09/2021 3:00 Results for this ULTRASOUND PM [employer] procedure are i n the results section. CALCIUM LEVEL TOTAL Routine 07/09/2021 1:45 Resu lts for this PM [employer] procedure are i n the results section. .GLOMERULAR FILTRATION Routine 07/09/2021 1:45 R esults for this RATE PM [employer] procedure are i n the results section. SERUM CREATININE Routine 07/09/2021 1:45 Results for this PM [employer] procedure are i n the results section. ELECTROLYTE PANEL Routine 07/09/2021 1:45 Result s for this PM [employer] procedure are i n the results section. BLOOD UREA NITROGEN Routine 07/09/2021 1:45 Resu lts for this PM [employer] procedure are i n the results section. GLUCOSE LEVEL Routine 07/09/2021 1:45 Results fo r this PM [employer] procedure are i n the results section. PHOSPHORUS LEVEL Routine 07/09/2021 1:45 Results for this PM [employer] procedure are i n the results section. MAGNESIUM LEVEL Routine 07/09/2021 1:45 Results for this PM [employer] procedure are i n the results section. BASIC METABOLIC PANEL, Routine 07/09/2021 1:45 CALCIUM TOTAL PM [employer] OSCILLATORY PEP Routine 07/09/2021 1:21 PM [employer] OSCILLATORY PEP Routine 07/09/2021 1:21 PM [employer] OSCILLATORY PEP Routine 07/09/2021 1:21 PM [employer] POC GLUCOSE SCREEN Routine 07/09/2021 12:42 Resul ts for this PM [employer] procedure are i n the results section. POC GLUCOSE SCREEN Routine 07/09/2021 8:56 Resul ts for this AM [employer] procedure are i n the results section. MANUAL DIFFERENTIAL AM 07/09/2021 6:28 Resu lts for this AM [employer] procedure are i n the results section. Results CBC AM 07/09/2021 6:28 Results for this AM [employer] procedure are i n the results section. CALCIUM LEVEL TOTAL AM 07/09/2021 6:28 Resu lts for this AM [employer] procedure are i n the results section. .GLOMERULAR FILTRATION AM 07/09/2021 6:28 R esults for this RATE AM [employer] procedure are i n the results section. SERUM CREATININE AM 07/09/2021 6:28 Results for this AM [employer] procedure are i n the results section. ELECTROLYTE PANEL AM 07/09/2021 6:28 Result s for this AM [employer] procedure are i n the results section. BLOOD UREA NITROGEN AM 07/09/2021 6:28 Resu lts for this AM [employer] procedure are i n the results section. GLUCOSE LEVEL AM 07/09/2021 6:28 Results fo r this AM [employer] procedure are i n the results section. PHOSPHORUS LEVEL AM 07/09/2021 6:28 Results for this AM [employer] procedure are i n the results section. MAGNESIUM LEVEL AM 07/09/2021 6:28 Results for this AM [employer] procedure are i n the results section. COMPLETE BLOOD COUNT W/ AM 07/09/2021 6:28 DIFFERENTIAL AM [employer] BASIC METABOLIC PANEL, AM 07/09/2021 6:28 CALCIUM TOTAL AM [employer] TROPONIN T Routine 07/09/2021 6:28 Results for this AM [employer] procedure are i n the results section. POC GLUCOSE SCREEN Routine 07/08/2021 10:08 Resul ts for this PM [employer] procedure are i n the results section. POC GLUCOSE SCREEN Routine 07/08/2021 5:49 Resul ts for this PM [employer] procedure are i n the results section. STREPTOCOCCAL URINE Routine 07/08/2021 5:17 Resu lts for this ANTIGEN PATH REVIEW PM [employer] procedur e are in the results section. LEGIONELLA URINE Routine 07/08/2021 5:17 Results for this ANTIGEN PATH REVIEW PM [employer] procedur e are in the results section. LEGIONELLA URINE Now 07/08/2021 5:17 Results for this ANTIGEN PM [employer] procedure are i n the results section. STREPTOCOCCUS Now 07/08/2021 5:17 Results fo r this PNEUMONIAE URINE PM [employer] procedure a re in ANTIGEN the results section. GENERAL LABORATORY ADD Now 07/08/2021 3:35 R esults for this ON TEST PM [employer] procedure are i n the results section. MRSA SCREENING CULTURE Now 07/08/2021 3:23 R esults for this PM [employer] procedure are i n the results section. CT CHEST PULMONARY Routine 07/08/2021 1:38 Resul ts for this EMBOLISM W CONTRAST PM [employer] procedur e are in the results section. XR ABDOMEN AP Routine 07/08/2021 1:31 Results fo r this PM [employer] procedure are i n the results section. POC CRITICAL Routine 07/08/2021 12:14 Results for this PM [employer] procedure are i n the results section. POC CHEM 8 Routine 07/08/2021 12:14 Results for this PM [employer] procedure are i n the results section. PROCALCITONIN Now 07/08/2021 12:13 Results fo r this PM [employer] procedure are i n the results section. FRACTIONATED BILIRUBIN Now 07/08/2021 12:13 R esults for this PM [employer] procedure are i n the results section. TOTAL PROTEIN Now 07/08/2021 12:13 Results fo r this PM [employer] procedure are i n the results section. ASPARTATE Now 07/08/2021 12:13 Results for this AMINOTRANSFERASE PM [employer] procedure a re in the results section. ALANINE Now 07/08/2021 12:13 Results for this AMINOTRANSFERASE PM [employer] procedure a re in the results section. ALKALINE PHOSPHATASE Now 07/08/2021 12:13 Res ults for this PM [employer] procedure are i n the results section. ALBUMIN LEVEL Now 07/08/2021 12:13 Results fo r this PM [employer] procedure are i n the results section. CALCIUM LEVEL TOTAL Now 07/08/2021 12:13 Resu lts for this PM [employer] procedure are i n the results section. .GLOMERULAR FILTRATION Now 07/08/2021 12:13 R esults for this RATE PM [employer] procedure are i n the results section. SERUM CREATININE Now 07/08/2021 12:13 Results for this PM [employer] procedure are i n the results section. ELECTROLYTE PANEL Now 07/08/2021 12:13 Result s for this PM [employer] procedure are i n the results section. BLOOD UREA NITROGEN Now 07/08/2021 12:13 Resu lts for this PM [employer] procedure are i n the results section. GLUCOSE LEVEL Now 07/08/2021 12:13 Results fo r this PM [employer] procedure are i n the results section. MANUAL DIFFERENTIAL STAT 07/08/2021 12:13 Resu lts for this PM [employer] procedure are i n the results section. Results CBC STAT 07/08/2021 12:13 Results for this PM [employer] procedure are i n the results section. CARDIAC PANEL Timed Study 07/08/2021 12:13 Results fo r this PM [employer] procedure are i n the results section. D DIMER Now 07/08/2021 12:13 Results for this PM [employer] procedure are i n the results section. APTT Now 07/08/2021 12:13 Results for this PM [employer] procedure are i n the results section. PROTHROMBIN TIME Now 07/08/2021 12:13 Results for this PM [employer] procedure are i n the results section. PHOSPHORUS LEVEL Now 07/08/2021 12:13 Results for this PM [employer] procedure are i n the results section. MAGNESIUM LEVEL Now 07/08/2021 12:13 Results for this PM [employer] procedure are i n the results section. COMPREHENSIVE METABOLIC Now 07/08/2021 12:13 PANEL PM [employer] COMPLETE BLOOD COUNT W/ Now 07/08/2021 12:13 DIFFERENTIAL PM [employer] XR CHEST 1 VW Routine 07/08/2021 11:38 Results fo r this AM [employer] procedure are i n the results section. COVID-19 (SARS-COV-2) Now 07/08/2021 11:23 Re sults for this ASYMPTOMATIC-LT AM [employer] procedure ar e in the results section. CT HEAD WO CONTRAST Routine 07/08/2021 11:05 Resu lts for this AM [employer] procedure are i n the results section. POC GLUCOSE SCREEN Routine 07/08/2021 10:47 Resul ts for this AM [employer] procedure are i n the results section. EKG, 12-LEAD (PORTABLE) STAT 07/08/2021 MANUAL DIFFERENTIAL Routine 07/04/2021 11:10 Primary squamous Results for this AM [employer] cell carcinoma of procedure are in larynx the results section. Results CBC Routine 07/04/2021 11:10 Primary squamous Results for this AM [employer] cell carcinoma of procedure are in larynx the results section. FRACTIONATED BILIRUBIN Routine 07/04/2021 11:10 Primary squamo us Results for this AM [employer] cell carcinoma of procedure are in larynx the results section. TOTAL PROTEIN Routine 07/04/2021 11:10 Primary squamous Result s for this AM [employer] cell carcinoma of procedure are in larynx the results section. ASPARTATE Routine 07/04/2021 11:10 Primary squamous Results for this AMINOTRANSFERASE AM [employer] cell carcinoma of proced ure are in larynx the results section. ALANINE Routine 07/04/2021 11:10 Primary squamous Results for this AMINOTRANSFERASE AM [employer] cell carcinoma of proced ure are in larynx the results section. ALKALINE PHOSPHATASE Routine 07/04/2021 11:10 Primary squamous Results for this AM [employer] cell carcinoma of procedure are in larynx the results section. ALBUMIN LEVEL Routine 07/04/2021 11:10 Primary squamous Result s for this AM [employer] cell carcinoma of procedure are in larynx the results section. CALCIUM LEVEL TOTAL Routine 07/04/2021 11:10 Primary squamous Results for this AM [employer] cell carcinoma of procedure are in larynx the results section. .GLOMERULAR FILTRATION Routine 07/04/2021 11:10 Primary squamo us Results for this RATE AM [employer] cell carcinoma of procedure are in larynx the results section. SERUM CREATININE Routine 07/04/2021 11:10 Primary squamous Res ults for this AM [employer] cell carcinoma of procedure are in larynx the results section. ELECTROLYTE PANEL Routine 07/04/2021 11:10 Primary squamous Re sults for this AM [employer] cell carcinoma of procedure are in larynx the results section. BLOOD UREA NITROGEN Routine 07/04/2021 11:10 Primary squamous Results for this AM [employer] cell carcinoma of procedure are in larynx the results section. GLUCOSE LEVEL Routine 07/04/2021 11:10 Primary squamous Result s for this AM [employer] cell carcinoma of procedure are in larynx the results section. PHOSPHORUS LEVEL Routine 07/04/2021 11:10 Primary squamous Res ults for this AM [employer] cell carcinoma of procedure are in larynx the results section. MAGNESIUM LEVEL Routine 07/04/2021 11:10 Primary squamous Resu lts for this AM [employer] cell carcinoma of procedure are in larynx the results section. 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 FRACTIONATED BILIRUBIN Routine 06/27/2021 8:00 Primary squamo us Results for this AM [employer] cell carcinoma of procedure are in larynx the results section. TOTAL PROTEIN Routine 06/27/2021 8:00 Primary squamous Result s for this AM [employer] cell carcinoma of procedure are in larynx the results section. ASPARTATE Routine 06/27/2021 8:00 Primary squamous Results for this AMINOTRANSFERASE AM [employer] cell carcinoma of proced ure are in larynx the results section. ALANINE Routine 06/27/2021 8:00 Primary squamous Results for this AMINOTRANSFERASE AM [employer] cell carcinoma of proced ure are in larynx the results section. 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 ALBUMIN LEVEL Routine 06/27/2021 8:00 Primary squamous Result s for this AM [employer] cell carcinoma of procedure are in larynx the results section. 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 .GLOMERULAR FILTRATION Routine 06/27/2021 8:00 Primary squamo us Results for this RATE AM [employer] cell carcinoma of procedure are in larynx the results section. SERUM CREATININE Routine 06/27/2021 8:00 Primary squamous Res ults for this AM [employer] cell carcinoma of procedure are in larynx the results section. ELECTROLYTE PANEL Routine 06/27/2021 8:00 Primary squamous Re sults for this AM [employer] cell carcinoma of procedure are in larynx the results section. 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 GLUCOSE LEVEL Routine 06/27/2021 8:00 Primary squamous Result s for this AM [employer] cell carcinoma of procedure are in larynx the results section. PHOSPHORUS LEVEL Routine 06/27/2021 8:00 Primary squamous Res ults for this AM [employer] cell carcinoma of procedure are in larynx the results section. MAGNESIUM LEVEL Routine 06/27/2021 8:00 Primary squamous Resu lts for this AM [employer] cell carcinoma of procedure are in larynx the results section. COMPLETE BLOOD COUNT W/ Routine 06/27/2021 8:00 Primary squam ous DIFFERENTIAL AM [employer] cell carcinoma of larynx COMPREHENSIVE METABOLIC Routine 06/27/2021 8:00 Primary squam ous PANEL AM [employer] cell carcinoma of larynx TROPONIN T STAT 06/22/2021 3:45 Results for this PM [employer] procedure are i n the results section. FRACTIONATED BILIRUBIN Now 06/22/2021 11:54 R esults for this AM [employer] procedure are i n the results section. TOTAL PROTEIN Now 06/22/2021 11:54 Results fo r this AM [employer] procedure are i n the results section. ASPARTATE Now 06/22/2021 11:54 Results for this AMINOTRANSFERASE AM [employer] procedure a re in the results section. ALANINE Now 06/22/2021 11:54 Results for this AMINOTRANSFERASE AM [employer] procedure a re in the results section. ALKALINE PHOSPHATASE Now 06/22/2021 11:54 Res ults for this AM [employer] procedure are i n the results section. ALBUMIN LEVEL Now 06/22/2021 11:54 Results fo r this AM [employer] procedure are i n the results section. CALCIUM LEVEL TOTAL Now 06/22/2021 11:54 Resu lts for this AM [employer] procedure are i n the results section. .GLOMERULAR FILTRATION Now 06/22/2021 11:54 R esults for this RATE AM [employer] procedure are i n the results section. SERUM CREATININE Now 06/22/2021 11:54 Results for this AM [employer] procedure are i n the results section. ELECTROLYTE PANEL Now 06/22/2021 11:54 Result s for this AM [employer] procedure are i n the results section. BLOOD UREA NITROGEN Now 06/22/2021 11:54 Resu lts for this AM [employer] procedure are i n the results section. GLUCOSE LEVEL Now 06/22/2021 11:54 Results fo r this AM [employer] procedure are i n the results section. MANUAL DIFFERENTIAL STAT 06/22/2021 11:54 Resu lts for this AM [employer] procedure are i n the results section. Results CBC STAT 06/22/2021 11:54 Results for this AM [employer] procedure are i n the results section. CKMB Now 06/22/2021 11:54 Results for this AM [employer] procedure are i n the results section. CREATINE KINASE Now 06/22/2021 11:54 Results for this AM [employer] procedure are i n the results section. NT PRO BNP Now 06/22/2021 11:54 Results for this AM [employer] procedure are i n the results section. PHOSPHORUS LEVEL Now 06/22/2021 11:54 Results for this AM [employer] procedure are i n the results section. MAGNESIUM LEVEL Now 06/22/2021 11:54 Results for this AM [employer] procedure are i n the results section. COMPREHENSIVE METABOLIC Now 06/22/2021 11:54 PANEL AM [employer] COMPLETE BLOOD COUNT W/ Now 06/22/2021 11:54 DIFFERENTIAL AM [employer] COVID-19 (SARS-COV-2) Now 06/22/2021 11:54 Re sults for this ASYMPTOMATIC-LT AM [employer] procedure ar e in the results section. EKG, 12-LEAD (PORTABLE) Routine 06/22/2021 EKG, 12-LEAD (PORTABLE) STAT 06/22/2021 CT HEAD/NECK SIMULATION Routine 06/21/2021 9:00 Primary squam ous Results for this WO CONTRAST (RO) AM [employer] cell carcinoma of proced ure are in larynx the results section. MANUAL DIFFERENTIAL Routine 06/20/2021 8:07 Primary squamous Results for this AM [employer] cell carcinoma of procedure are in larynx the results section. Results CBC Routine 06/20/2021 8:07 Primary squamous Results for this AM [employer] cell carcinoma of procedure are in larynx the results section. FRACTIONATED BILIRUBIN Routine 06/20/2021 8:07 Primary [place] us Results for this AM [employer] cell carcinoma of procedure are in larynx the results section. TOTAL PROTEIN Routine 06/20/2021 8:07 Primary squamous Result s for this AM [employer] cell carcinoma of procedure are in larynx the results section. ASPARTATE Routine 06/20/2021 8:07 Primary squamous Results for this AMINOTRANSFERASE AM [employer] cell carcinoma of proced ure are in larynx the results section. ALANINE Routine 06/20/2021 8:07 Primary squamous Results for this AMINOTRANSFERASE AM [employer] cell carcinoma of proced ure are in larynx the results section. ALKALINE PHOSPHATASE Routine 06/20/2021 8:07 Primary squamous Results for this AM [employer] cell carcinoma of procedure are in larynx the results section. ALBUMIN LEVEL Routine 06/20/2021 8:07 Primary squamous Result s for this AM [employer] cell carcinoma of procedure are in larynx the results section. CALCIUM LEVEL TOTAL Routine 06/20/2021 8:07 Primary squamous Results for this AM [employer] cell carcinoma of procedure are in larynx the results section. .GLOMERULAR FILTRATION Routine 06/20/2021 8:07 Primary [place] us Results for this RATE AM [employer] cell carcinoma of procedure are in larynx the results section. SERUM CREATININE Routine 06/20/2021 8:07 Primary squamous Res ults for this AM [employer] cell carcinoma of procedure are in larynx the results section. ELECTROLYTE PANEL Routine 06/20/2021 8:07 Primary squamous Re sults for this AM [employer] cell carcinoma of procedure are in larynx the results section. BLOOD UREA NITROGEN Routine 06/20/2021 8:07 Primary squamous Results for this AM [employer] cell carcinoma of procedure are in larynx the results section. GLUCOSE LEVEL Routine 06/20/2021 8:07 Primary squamous Result s for this AM [employer] cell carcinoma of procedure are in larynx the results section. PHOSPHORUS LEVEL Routine 06/20/2021 8:07 Primary squamous Res ults for this AM [employer] cell carcinoma of procedure are in larynx the results section. MAGNESIUM LEVEL Routine 06/20/2021 8:07 Primary squamous Resu lts for this AM [employer] cell carcinoma of procedure are in larynx the results section. COMPLETE BLOOD COUNT W/ Routine 06/20/2021 8:07 Primary squam ous DIFFERENTIAL AM [employer] cell carcinoma of larynx COMPREHENSIVE METABOLIC Routine 06/20/2021 8:07 Primary squam ous PANEL AM [employer] cell carcinoma of larynx MANUAL DIFFERENTIAL Routine 06/13/2021 7:00 Primary squamous Results for this AM [employer] cell carcinoma of procedure are in larynx the results section. Results CBC Routine 06/13/2021 7:00 Primary squamous Results for this AM [employer] cell carcinoma of procedure are in larynx the results section. FRACTIONATED BILIRUBIN Routine 06/13/2021 7:00 Primary squ[place] us Results for this AM [employer] cell carcinoma of procedure are in larynx the results section. TOTAL PROTEIN Routine 06/13/2021 7:00 Primary squamous Result s for this AM [employer] cell carcinoma of procedure are in larynx the results section. ASPARTATE Routine 06/13/2021 7:00 Primary squamous Results for this AMINOTRANSFERASE AM [employer] cell carcinoma of proced ure are in larynx the results section. ALANINE Routine 06/13/2021 7:00 Primary squamous Results for this AMINOTRANSFERASE AM [employer] cell carcinoma of proced ure are in larynx the results section. ALKALINE PHOSPHATASE Routine 06/13/2021 7:00 Primary squamous Results for this AM [employer] cell carcinoma of procedure are in larynx the results section. ALBUMIN LEVEL Routine 06/13/2021 7:00 Primary squamous Result s for this AM [employer] cell carcinoma of procedure are in larynx the results section. CALCIUM LEVEL TOTAL Routine 06/13/2021 7:00 Primary squamous Results for this AM [employer] cell carcinoma of procedure are in larynx the results section. .GLOMERULAR FILTRATION Routine 06/13/2021 7:00 Primary [place] us Results for this RATE AM [employer] cell carcinoma of procedure are in larynx the results section. SERUM CREATININE Routine 06/13/2021 7:00 Primary squamous Res ults for this AM [employer] cell carcinoma of procedure are in larynx the results section. ELECTROLYTE PANEL Routine 06/13/2021 7:00 Primary squamous Re sults for this AM [employer] cell carcinoma of procedure are in larynx the results section. BLOOD UREA NITROGEN Routine 06/13/2021 7:00 Primary squamous Results for this AM [employer] cell carcinoma of procedure are in larynx the results section. GLUCOSE LEVEL Routine 06/13/2021 7:00 Primary squamous Result s for this AM [employer] cell carcinoma of procedure are in larynx the results section. PHOSPHORUS LEVEL Routine 06/13/2021 7:00 Primary squamous Res ults for this AM [employer] cell carcinoma of procedure are in larynx the results section. MAGNESIUM LEVEL Routine 06/13/2021 7:00 Primary squamous Resu lts for this AM [employer] cell carcinoma of procedure are in larynx the results section. COMPLETE BLOOD COUNT W/ Routine 06/13/2021 7:00 Primary squam ous DIFFERENTIAL AM [employer] cell carcinoma of larynx COMPREHENSIVE METABOLIC Routine 06/13/2021 7:00 Primary squam ous PANEL AM [employer] cell carcinoma of larynx MANUAL DIFFERENTIAL Routine 06/06/2021 6:58 Primary squamous Results for this AM [employer] cell carcinoma of procedure are in larynx the results section. Results CBC Routine 06/06/2021 6:58 Primary squamous Results for this AM [employer] cell carcinoma of procedure are in larynx the results section. FRACTIONATED BILIRUBIN Routine 06/06/2021 6:58 Primary [place] us Results for this AM [employer] cell carcinoma of procedure are in larynx the results section. TOTAL PROTEIN Routine 06/06/2021 6:58 Primary squamous Result s for this AM [employer] cell carcinoma of procedure are in larynx the results section. ASPARTATE Routine 06/06/2021 6:58 Primary squamous Results for this AMINOTRANSFERASE AM [employer] cell carcinoma of proced ure are in larynx the results section. ALANINE Routine 06/06/2021 6:58 Primary squamous Results for this AMINOTRANSFERASE AM [employer] cell carcinoma of proced ure are in larynx the results section. ALKALINE PHOSPHATASE Routine 06/06/2021 6:58 Primary squamous Results for this AM [employer] cell carcinoma of procedure are in larynx the results section. ALBUMIN LEVEL Routine 06/06/2021 6:58 Primary squamous Result s for this AM [employer] cell carcinoma of procedure are in larynx the results section. CALCIUM LEVEL TOTAL Routine 06/06/2021 6:58 Primary squamous Results for this AM [employer] cell carcinoma of procedure are in larynx the results section. .GLOMERULAR FILTRATION Routine 06/06/2021 6:58 Primary [place] us Results for this RATE AM [employer] cell carcinoma of procedure are in larynx the results section. SERUM CREATININE Routine 06/06/2021 6:58 Primary squamous Res ults for this AM [employer] cell carcinoma of procedure are in larynx the results section. ELECTROLYTE PANEL Routine 06/06/2021 6:58 Primary squamous Re sults for this AM [employer] cell carcinoma of procedure are in larynx the results section. BLOOD UREA NITROGEN Routine 06/06/2021 6:58 Primary squamous Results for this AM [employer] cell carcinoma of procedure are in larynx the results section. GLUCOSE LEVEL Routine 06/06/2021 6:58 Primary squamous Result s for this AM [employer] cell carcinoma of procedure are in larynx the results section. PHOSPHORUS LEVEL Routine 06/06/2021 6:58 Primary squamous Res ults for this AM [employer] cell carcinoma of procedure are in larynx the results section. MAGNESIUM LEVEL Routine 06/06/2021 6:58 Primary squamous Resu lts for this AM [employer] cell carcinoma of procedure are in larynx the results section. COMPLETE BLOOD COUNT W/ Routine 06/06/2021 6:58 Primary squam ous DIFFERENTIAL AM [employer] cell carcinoma of larynx COMPREHENSIVE METABOLIC Routine 06/06/2021 6:58 Primary squam ous PANEL AM [employer] cell carcinoma of larynx MANUAL DIFFERENTIAL Routine 05/30/2021 8:28 Primary squamous Results for this AM [employer] cell carcinoma of procedure are in larynx the results section. Results CBC Routine 05/30/2021 8:28 Primary squamous Results for this AM [employer] cell carcinoma of procedure are in larynx the results section. FRACTIONATED BILIRUBIN Routine 05/30/2021 8:28 Primary [place] us Results for this AM [employer] cell carcinoma of procedure are in larynx the results section. TOTAL PROTEIN Routine 05/30/2021 8:28 Primary squamous Result s for this AM [employer] cell carcinoma of procedure are in larynx the results section. ASPARTATE Routine 05/30/2021 8:28 Primary squamous Results for this AMINOTRANSFERASE AM [employer] cell carcinoma of proced ure are in larynx the results section. ALANINE Routine 05/30/2021 8:28 Primary squamous Results for this AMINOTRANSFERASE AM [employer] cell carcinoma of proced ure are in larynx the results section. ALKALINE PHOSPHATASE Routine 05/30/2021 8:28 Primary squamous Results for this AM [employer] cell carcinoma of procedure are in larynx the results section. ALBUMIN LEVEL Routine 05/30/2021 8:28 Primary squamous Result s for this AM [employer] cell carcinoma of procedure are in larynx the results section. CALCIUM LEVEL TOTAL Routine 05/30/2021 8:28 Primary squamous Results for this AM [employer] cell carcinoma of procedure are in larynx the results section. .GLOMERULAR FILTRATION Routine 05/30/2021 8:28 Primary [place] us Results for this RATE AM [employer] cell carcinoma of procedure are in larynx the results section. SERUM CREATININE Routine 05/30/2021 8:28 Primary squamous Res ults for this AM [employer] cell carcinoma of procedure are in larynx the results section. ELECTROLYTE PANEL Routine 05/30/2021 8:28 Primary squamous Re sults for this AM [employer] cell carcinoma of procedure are in larynx the results section. BLOOD UREA NITROGEN Routine 05/30/2021 8:28 Primary squamous Results for this AM [employer] cell carcinoma of procedure are in larynx the results section. GLUCOSE LEVEL Routine 05/30/2021 8:28 Primary squamous Result s for this AM [employer] cell carcinoma of procedure are in larynx the results section. PHOSPHORUS LEVEL Routine 05/30/2021 8:28 Primary squamous Res ults for this AM [employer] cell carcinoma of procedure are in larynx the results section. MAGNESIUM LEVEL Routine 05/30/2021 8:28 Primary squamous Resu lts for this AM [employer] cell carcinoma of procedure are in larynx the results section. COMPLETE BLOOD COUNT W/ Routine 05/30/2021 8:28 Primary squam ous DIFFERENTIAL AM [employer] cell carcinoma of larynx COMPREHENSIVE METABOLIC Routine 05/30/2021 8:28 Primary squam ous PANEL AM [employer] cell carcinoma of larynx MANUAL DIFFERENTIAL Routine 05/23/2021 8:42 Primary squamous Results for this AM [employer] cell carcinoma of procedure are in larynx the results section. Results CBC Routine 05/23/2021 8:42 Primary squamous Results for this AM [employer] cell carcinoma of procedure are in larynx the results section. FRACTIONATED BILIRUBIN Routine 05/23/2021 8:42 Primary [place] us Results for this AM [employer] cell carcinoma of procedure are in larynx the results section. TOTAL PROTEIN Routine 05/23/2021 8:42 Primary squamous Result s for this AM [employer] cell carcinoma of procedure are in larynx the results section. ASPARTATE Routine 05/23/2021 8:42 Primary squamous Results for this AMINOTRANSFERASE AM [employer] cell carcinoma of proced ure are in larynx the results section. ALANINE Routine 05/23/2021 8:42 Primary squamous Results for this AMINOTRANSFERASE AM JOINT TERMINAL ATTACK CONTROLLER cell carcinoma of proced ure are in larynx the results section. ALKALINE PHOSPHATASE Routine 05/23/2021 8:42 Primary squamous Results for this AM JOINT TERMINAL ATTACK CONTROLLER cell carcinoma of procedure are in larynx the results section. ALBUMIN LEVEL Routine 05/23/2021 8:42 Primary squamous Result s for this AM JOINT [employer]ER cell carcinoma of procedure are in larynx the results section. CALCIUM LEVEL TOTAL Routine 05/23/2021 8:42 Primary squamous Results for this AM JOINT [employer]ER cell carcinoma of procedure are in larynx the results section. .GLOMERULAR FILTRATION Routine 05/23/2021 8:42 Primary squamo us Results for this RATE AM JOINT [employer] ATT[employer]ER cell carcinoma of procedure are in larynx the results section. SERUM CREATININE Routine 05/23/2021 8:42 Primary squamous Res ults for this AM JOINT [employer]ER cell carcinoma of procedure are in larynx the results section. ELECTROLYTE PANEL Routine 05/23/2021 8:42 Primary squamous Re sults for this AM JOINT [employer]OLLER cell carcinoma of procedure are in larynx the results section. BLOOD UREA NITROGEN Routine 05/23/2021 8:42 Primary squamous Results for this AM JOINT [employer]ER cell carcinoma of procedure are in larynx the results section. GLUCOSE LEVEL Routine 05/23/2021 8:42 Primary squamous Result s for this AM JOINT [employer]ER cell carcinoma of procedure are in larynx the results section. PHOSPHORUS LEVEL Routine 05/23/2021 8:42 Primary squamous Res ults for this AM JOINT [employer]ER cell carcinoma of procedure are in larynx the results section. MAGNESIUM LEVEL Routine 05/23/2021 8:42 Primary squamous Resu lts for this AM JOINT [employer]ER cell carcinoma of procedure are in larynx the results section. COMPLETE BLOOD COUNT W/ Routine 05/23/2021 8:42 Primary squam ous DIFFERENTIAL AM JOINT [employer]ER cell carcinoma of larynx COMPREHENSIVE METABOLIC Routine 05/23/2021 8:42 Primary squam ous PANEL AM JOINT [employer]OLLER cell carcinoma of larynx FL MODIFIED BARIUM Routine 05/18/2021 9:57 Primary squamous R esults for this SWALLOW W SPEECH AM JOINT [employer]OLLER cell carcinoma of proced ure are in larynx the results section. CT HEAD/NECK SIMULATION Routine 05/11/2021 10:46 Primary squam ous Results for this WO CONTRAST (RO) AM JOINT [employer] ATT[employer] CONTROLLER cell carcinoma of proced ure are in larynx the results section. COVID-19 Routine 05/11/2021 9:05 Encounter for Results fo r this (SARS-COV-2) PCR AM JOINT [employer]ER observation for procedur e are in ASYMPTOMATIC other suspected the results exposure to section. biological agent ruled out ORTHOPANTOGRAM Routine 05/06/2021 10:53 Encounter for Results for this AM JOINT [employer]ER observation for procedure ar e in other suspected the results disease ruled out section. BOTTLE BLOWER 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 Routine 05/06/2021 9:58 Primary squamous Results for this AM JOINT [employer]ER cell carcinoma of procedure are in larynx the results section. FRACTIONATED BILIRUBIN Routine 05/04/2021 11:10 Primary squamo us Results for this AM JOINT [employer]ER cell carcinoma of procedure are in larynx the results section. TOTAL PROTEIN Routine 05/04/2021 11:10 Primary squamous Result s for this AM JOINT [employer]ER cell carcinoma of procedure are in larynx the results section. ASPARTATE Routine 05/04/2021 11:10 Primary squamous Results for this AMINOTRANSFERASE AM JOINT [employer]MIN[employer] ATT[employer] CONTROLLER cell carcinoma of proced ure are in larynx the results section. ALANINE Routine 05/04/2021 11:10 Primary squamous Results for this AMINOTRANSFERASE AM JOINT [employer] ATT[employer]OLLER cell carcinoma of proced ure are in larynx the results section. ALKALINE PHOSPHATASE Routine 05/04/2021 11:10 Primary squamous Results for this AM JOINT [employer]ER cell carcinoma of procedure are in larynx the results section. ALBUMIN LEVEL Routine 05/04/2021 11:10 Primary squamous Result s for this AM JOINT [employer]ER cell carcinoma of procedure are in larynx the results section. .GLOMERULAR FILTRATION Routine 05/04/2021 11:10 Primary squamo us Results for this RATE AM JOINT [employer] ATT[employer]ER cell carcinoma of procedure are in larynx the results section. SERUM CREATININE Routine 05/04/2021 11:10 Primary squamous Res ults for this AM JOINT [employer]ER cell carcinoma of procedure are in larynx the results section. VITAMIN D 25 HYDROXY Routine 05/04/2021 11:10 Primary squamous Results for this LEVEL AM JOINT [employer]ER cell carcinoma of procedure are in larynx the results section. HEPATIC FUNCTION PANEL Routine 05/04/2021 11:10 Primary squamo us AM JOINT [employer]ER cell carcinoma of larynx CALCIUM LEVEL TOTAL Routine 05/04/2021 11:10 Primary squamous Results for this AM JOINT [employer]ER cell carcinoma of procedure are in larynx the results section. PHOSPHORUS LEVEL Routine 05/04/2021 11:10 Primary squamous Res ults for this AM JOINT [employer]ER cell carcinoma of procedure are in larynx the results section. MAGNESIUM LEVEL Routine 05/04/2021 11:10 Primary squamous Resu lts for this AM JOINT [employer]ER cell carcinoma of procedure are in larynx the results section. GLUCOSE, RANDOM Routine 05/04/2021 11:10 Primary squamous Resu lts for this AM JOINT [employer]ER cell carcinoma of procedure are in larynx the results section. SERUM CREATININE Routine 05/04/2021 11:10 Primary squamous AM JOINT [employer]ER cell carcinoma of larynx BLOOD UREA NITROGEN Routine 05/04/2021 11:10 Primary squamous Results for this AM JOINT [employer]ER cell carcinoma of procedure are in larynx the results section. ELECTROLYTE PANEL Routine 05/04/2021 11:10 Primary squamous Re sults for this AM JOINT [employer]ER cell carcinoma of procedure are in larynx the results section. COVID-19 Routine 05/04/2021 10:23 Suspected COVID-19 Resul ts for this (SARS-COV-2) PCR AM JOINT [employer]ER procedure a re in ASYMPTOMATIC the results section. TMP HCVAB INTERP Routine 05/03/2021 8:26 Results for this AM JOINT [employer]ER procedure are i n the results section. FRACTIONATED BILIRUBIN Routine 05/03/2021 8:26 Primary squamo us Results for this AM JOINT [employer] ATT[employer]OLLER cell carcinoma of procedure are in larynx the results section. TOTAL PROTEIN Routine 05/03/2021 8:26 Primary squamous Result s for this AM JOINT [employer]AL ATT[employer]OLLER cell carcinoma of procedure are in larynx the results section. ASPARTATE Routine 05/03/2021 8:26 Primary squamous Results for this AMINOTRANSFERASE AM JOINT TERMINAL ATTACK CONTROLLER cell carcinoma of proced ure are in larynx the results section. ALANINE Routine 05/03/2021 8:26 Primary squamous Results for this AMINOTRANSFERASE AM JOINT TERMINAL ATTACK CONTROLLER cell carcinoma of proced ure are in larynx the results section. ALKALINE PHOSPHATASE Routine 05/03/2021 8:26 Primary squamous Results for this AM JOINT [employer]OLLER cell carcinoma of procedure are in larynx the results section. 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 SERUM CREATININE Routine 05/03/2021 8:26 Primary squamous Res ults for this AM JOINT TERMINAL ATT[employer] CONTROLLER cell carcinoma of procedure are in larynx the results section. ELECTROLYTE PANEL Routine 05/03/2021 8:26 Primary squamous Re sults for this AM JOINT [employer]MIN[employer] ATT[employer] CONTROLLER cell carcinoma of procedure are in larynx the results section. 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 GLUCOSE LEVEL Routine 05/03/2021 8:26 Primary squamous Result s for this AM JOINT [employer]OLLER cell carcinoma of procedure are in larynx the results section. MANUAL DIFFERENTIAL Routine 05/03/2021 8:26 Primary squamous Results for this AM JOINT [employer]ER cell carcinoma of procedure are in larynx the results section. Results CBC Routine 05/03/2021 8:26 Primary squamous Results for this AM JOINT [employer] CONTROLLER cell carcinoma of procedure are in larynx the results section. FREE THYROXINE Routine 05/03/2021 8:26 Primary squamous Resul ts for this AM JOINT [employer] ATT[employer]OLLER cell carcinoma of procedure are in larynx the results section. HEPATITIS C VIRUS Routine 05/03/2021 8:26 Primary squamous Re sults for this ANTIBODY AM JOINT [employer]MINAL [employer]OLLER cell carcinoma of procedure are in larynx the results section. 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 CT SOFT TISSUE NECK W Routine 05/03/2021 7:27 Primary squamou s Results for this CONTRAST AM JOINT TERMINAL ATTACK CONTROLLER cell carcinoma of procedure are in larynx the results section. POC CREATININE Routine 05/03/2021 6:56 Results f or this AM JOINT TERMINAL ATT[employer]OLLER procedure are i n the results section. OSI PET CT SKULL TO MID Routine 04/07/2021 1:24 Cancer Results for this THIGH PM CDT procedure are i n the results section. PATHOLOGY OUTSIDE Routine 03/28/2021 Results fo r this INTERPRETATION procedure are in the results section. OSI CHEST Routine 03/24/2021 1:24 Cancer Results for this PM CDT procedure are i n the results section. after 07/15/2020 Results (ABNORMAL) POC Glucose Screen (07/12/2021 5:42 PM JOINT TERMINAL ATTACK CONTROLLER)Only the most recent of19 resultswithin the time period is included. POC Glucose 111 (H) 70 - 99 mg/dL POC [facility] Comment: Capillary blood samples, e.g . obtained by fingerstick, may have inaccurate results in patients with decreased peripheral blood flow. Method description: All resu lts are measured using Electrochemistry test methodology. The glucose in the sample mixes with the reagents on the test strip. The reaction produces an electric current. The amount of current produced is proportional to the glucose concentration in the blood. PO Sample Type Capillary POC [facility], [address] [place] [address], [place] [address]; [employer]: Loida Chavez MD Specimen Blood Performing Organization Address City/State/ZIP Code Phon e Number POC [facility] .Serum Creatinine (07/12/2021 3:09 PM JOINT TERMINAL ATTACK CONTROLLER)Only the most recent of20 results within the time period is included. Pathologist Sig nature Creatinine 0.91 0.67 - 1.17 mg/dL [facility] C ENTER Specimen Blood Performing Organization Address City/State/ZIP Code Phon e Number [facility] Unless otherwise noted, [place] [address] [place] all lab tests performed by: Division of Pathology and Laboratory Medicine [address] [facility] Glomerular Filtration Rate (07/12/2021 3:09 PM JOINT TERMINAL ATTACK CONTROLLER)Only the most recent of20 resultswithin the time period is included. eGFR-AA 97 >=60 [facility] Comment: mL/min/1.73 [facility] Normal eGFR: >= 60 mL/min/1.73 m2 sq. m Note: The eGFR is calculated using the CKD-EPI equation. The eGFR declines with age. eGFR <60 mL/min/1.73 m2 is considered as "decreased". This equation should only be used for patients 18 and older. According to the National dney Foundation's Kidney Disease Outcome Quality Initiative (KDOQI) classification and 2012 Kidney Disease Improving Global Outcomes (KDIGO) Clinical Practice Guideline, the stage of CKD should be categorized based on estimated GFR. Stage Description GFR mL/min/1.73 m2 1 Normal or high GFR >=90 2 Mildly decreased GFR 60-89 3a Mildly to moderately decreased GFR 45-59 3b Moderately to severely decreased GFR 30-44 4 Severely decreased GFR 15-29 5 Kidney failure <15 eGFR-JOSELITO 84 >=60 [facility] Comment: mL/min/1.73 [facility] Normal eGFR: >= 60 mL/min/1.73 m2 sq. m Note: The eGFR is calculated using the CKD-EPI equation. The eGFR declines with age. eGFR <60 mL/min/1.73 m2 is considered as "decreased". This equation should only be used for patients 18 and older. According to the National dney Foundation's Kidney Disease Outcome Quality Initiative (KDOQI) classification and 2012 Kidney Disease Improving Global Outcomes (KDIGO) Clinical Practice Guideline, the stage of CKD should be categorized based on estimated GFR. Stage Description GFR mL/min/1.73 m2 1 Normal or high GFR >=90 2 Mildly decreased GFR 60-89 3a Mildly to moderately decreased GFR 45-59 3b Moderately to severely decreased GFR 30-44 4 Severely decreased GFR 15-29 5 Kidney failure <15 Specimen Blood Performing Organization Address [facility] Phon e Number [facility] Unless otherwise noted, [address] all lab tests performed by: Division of Pathology and Laboratory Medicine [address] BUN (07/12/2021 3:09 PM JOINT TERMINAL ATTACK CONTROLLER)Only the most recent of20 resultswithin the time period is included. Pathologist Sig nature BUN 12 6 - 23 mg/dL [facility] Specimen Blood Performing Organization Address [facility] e Number [facility] Unless otherwise noted, [address] all lab tests performed by: Division of Pathology and Laboratory Medicine [address] Phosphorus Level (07/12/2021 3:09 PM JOINT TERMINAL ATTACK CONTROLLER)Only the most recent of19 results within the time period is included. Pathologist Sig nature Phosphorus 3.4 2.5 - 4.5 mg/dL [address] Specimen Blood Performing Organization Address [facility] Number [facility] Unless otherwise noted, [address] all lab tests performed by: Division of Pathology and Laboratory Medicine [address] (ABNORMAL) Magnesium Level (07/12/2021 3:09 PM JOINT TERMINAL ATTACK CONTROLLER)Only the most recent of19 resultswithin the time period is included. Pathologist Sig nature Magnesium 1.2 (L) 1.6 - 2.6 mg/dL [address] Specimen Blood Performing Organization Address [facility] e [facility] CANCER Unless otherwise noted, [address] all lab tests performed by: Division of Pathology and Laboratory Medicine [address] (ABNORMAL) Glucose Level (07/12/2021 3:09 PM JOINT TERMINAL ATTACK CONTROLLER)Only the most recent of19 resultswithin the time period is included. Glucose Level 189 (H) 70 - 99 mg/dL [facility] Comment: [facility] Effective 12/29/15, the gluco se reference intervals have been updated based on [place] [employer] guidelines (Standards of Medical Care in Diabetes 2016. Diabetes Care 2016; 39: S13-S22). Fasting blood glucose: Normal: 70-99 mg/dL Impaired fasting glucose (in creased risk for diabetes or pre-diabetes): 100- 125 mg/dL Diabetes mellitus: >/=126 mg/dL Random blood glucose: Normal: 70-199 mg/dL Note: Random glucose >100 mg/dL is assoc iated with increased risk for diabetes Specimen Blood Performing Organization Address [facility] Phon e Number [facility] Unless otherwise noted, [address] all lab tests performed by: Division of Pathology and Laboratory Medicine [address] [place] [address] [place] Calcium Level (07/12/2021 3:09 PM JOINT TERMINAL ATT[employer] CONTROLLER)Only the most recent of19 resultswithin the time period is included. Pathologist Sig nature Calcium Lvl 8.4 8.4 - 10.2 mg/dL [facility] NTER Specimen Blood Performing Organization Address [facility] Unless otherwise noted, [address] all lab tests performed by: Division of Pathology and Laboratory Medicine [facility] [address] [place] (ABNORMAL) Electrolyte Panel (07/12/2021 3:09 PM JOINT TERMINAL ATTACK CONTROLLER)Only the most recent of20 resultswithin the time period is included. Pathologist Sig nature Sodium Lvl 132 (L) 136 - 145 mEq/L [facility] Potassium Lvl 4.1 3.5 - 5.1 mEq/L [facility] Chloride 95 (L) 98 - 107 mEq/L [facility] CO2 27 22 - 29 mEq/L [facility] Anion Gap 10 4 - 14 mEq/L [facility] Specimen Blood Performing Organization Address [facility] e Number [facility] Unless otherwise noted, [address] all lab tests performed by: Division of Pathology and Laboratory Medicine [facility] [employer] (ABNORMAL) .CBC (07/12/2021 1:56 AM JOINT TERMINAL ATTACK CONTROLLER)Only the most recent of14 resultswithin the time period is included. WBC 1.8 (L) 4.0 - 11.0 [facility] RBC 2.93 (L) 4.50 - 6.00 [facility] M/uL [facility] Hgb 8.3 (L) 14.0 - 18.0 [facility] gm/dL [facility] Hct 24.8 (L) 40.0 - 54.0 % [facility] MCV 85 82 - 98 fL [facility] MCH 28.3 27.0 - 31.0 pg [facility] MCHC 33.5 31.0 - 36.0 [facility] gm/dL [facility] RDW-SD 47.9 (H) 35.1 - 46.3 fL [facility] RDW-CV 16.4 (H) 12.0 - 15.5 % [facility] Platelet count 198 140 - 440 K/uL [facility] MPV 9.4 4.0 - 10.4 fL [facility] INRBC 0.6 (H) <=0.0 % [facility] Comment: [facility] The INRBC (instrument NRBC) value reflects the enumera tion of nucleated red blood cells contained in a 200uL samp le of whole blood analyzed by the instrument. This value may differ from the NRBC value reported in a manual differ ential, which is based on a 100 cell differential. Specimen Blood Performing Organization Address City/State/ZIP Code Phon e Number [facility] Unless otherwise noted, [place] [address] [place] all lab tests performed by: Division of Pathology and Laboratory Medicine [employer] (ABNORMAL) Differential (07/12/2021 1:56 AM JOINT TERMINAL ATT[employer] CONTROLLER)Only the most recent of14 resultswithin the time period is included. Neutrophil % 62.7 42.0 - 66.0 % [facility] Lymphocyte % 20.6 (L) 24.0 - 44.0 % [facility] Monocyte % 12.8 (H) 2.0 - 7.0 % [facility] Eosinophil % 1.7 1.0 - 4.0 % [facility] Basophil % 1.1 (H) 0.0 - 1.0 % [facility] IGRE % 1.1 (H)Comment: 0.0 - 0.4 % [facility] IGRE % count [facility] includes Metamyelocytes, Myelocytes, and Promyelocytes. Neutrophil Abs 1.13 (L) 1.70 - 7.30 [facility] Lymphocyte Abs 0.37 (L) 1.00 - 4.80 [facility] Monocyte Abs 0.23 0.08 - 0.70 [facility] Eosinophil Abs 0.03 (L) 0.04 - 0.40 [facility] Basophil Abs 0.02 0.00 - 0.10 [facility] IG Abs 0.02 0.00 - 0.04 [facility] Specimen Blood Performing Organization Address City/State/ZIP Code Phon e Number [facility] Unless otherwise noted, [place] [address] CENTER all lab tests performed by: Division of Pathology and Laboratory Medicine [address] [facility] Echocardiogram 2D Complete (07/11/2021 4:16 PM JOINT TERMINAL ATTACK CONTROLLER) Specimen Narrative ISCV - 07/11/2021 4:19 PM JOINT TERMINAL ATTACK CONTROLLER Echocardiographic Report Interpretation Summary A complete two-dimensional transthoracic echocardiogram was performed (2D, M- mode, Doppler and color flow Doppler). The study was technically adequate and no previous studies are available for comparison. Normal left ventricular size and systoli c function. LV ejection fraction calculated using th e bi-plane method of disks is 62 %. Flattened septum is consistent with RV v olume overload. The RV is dilated. Normal RV systolic fu nction using TAPSE criteria. There is no pericardial effusion. Left Ventricle: Normal left ventricular size and systoli c function. Relative width thickness measures suggest concentric changes. LV ejection fraction calculated using the bi-plane method of disks is 62 %. Flattened septum is consistent with RV volume overload. I WMSI = 1.00 % Normal = 1 00 Segments Size X - Cannot 2 - 1-2 small Interpret 1 - Normal Hypokine tic 3 - Akinetic 4 - Dyskinetic3- 5 moderate 5 - Aneurysmal 6-14 large 15-16 diffuse 3D imaginD volumes were not performed in this st udy. Cardiac Mechanics/Speckle Tracking Imagi ng: Speckle tracking imaging was not perform ed in this study. (GE Study). Diastology: LV relaxation appears normal. Right Ventricle: The RV is dilated. Normal RV systolic fu nction using TAPSE criteria. Atria: Atria are normal in size. Mitral Valve: The mitral valve is normal. There is no mitral valve stenosis. There is trace mitral regurgitation. Tricuspid Valve: The tricuspid valve is normal. There is mild to moderate tricuspid regurgitation. Estimated RVSP is 68mmHg. The tricuspid valve regurgitation velocity suggests severe pulmonary hypertension. Aortic Valve: The aortic valve is trileaflet. Marked a ortic valve calcification. No aortic regurgitation is present. Pulmonic Valve: The pulmonic valve is normal in structur e and function. Mild pulmonic valvular regurgitation. Great Vessels: The aortic root is normal size. The aort ic arch appears normal. The inferior vena cava is dilated with normal respiratory variation. Pericardium/Pleural: There is no pericardial effusion. MMode/2D Measurements IVSd: 0.89 cm LVIDd: 4.2 cm LVPWd: 0.98 cm Ao root diam: 3.2 cm LVOT diam: 2.3 cm Ao root area: 8.3 cm2 LVOT area: 4.2 cm2 LA dimension: 3.3 cm EDV(MOD-A4C): 74.1 ml EDV(MOD-A2C): 103.3 ml ESV(MOD-A4C): 27.2 ml ESV(MOD-A2C): 41.7 ml EF(MOD-A4C): 63.3 % EF(MOD-A2C): 59.7 % LAV(MOD-A2C): 35.3 ml EDV(MOD-bp): 89.3 ml LAV(MOD-A4C): 34.3 ml ESV(MOD-bp): 34.4 ml LAV(MOD-bp): 38.8 ml EF(MOD-bp): 61.5 % LAV(MOD-bp) Indexed: 22.1 ml/m2 EDV (MOD-bp) Index: 50.7 ml/m2 ESV (MOD- bp) Index: 19.5 ml/m2 RWT: 0.46 cm TAPSE (>1.6): 2.6 cm Doppler Measurements MV E max enid: 123.3 cm/sec MV V2 max: 135.9 cm/sec MV A max enid: 95.0 cm/sec MV max P.4 mmHg MV E/A: 1.3 MV V2 mean: 67.1 cm/sec MV mean P.1 mmHg MV V2 VTI: 32.6 cm MVA(VTI): 4.5 cm2 MV P1/2t max enid: 123.3 cm/sec Ao V2 max: 211.4 cm/sec MV P1/2t: 49.4 msec Ao max P.9 mmHg MVA(P1/2t): 4.4 cm2 Ao V2 mean: 136.5 cm/sec Ao mean P.5 mmHg MV dec slope: 730.2 cm/sec2 Ao V2 VTI: 44.6 cm MALA(I,D): 3.3 cm2 MALA(V,D): 3.1 cm2 LV V1 max P.7 mmHg SV(LVOT): 148.1 ml LV V1 mean P.0 mmHg LV V1 max: 155.4 cm/sec LV V1 mean: 119.1 cm/sec LV V1 VTI: 35.6 cm Med Peak E' Enid: 7.2 cm/sec Lat Peak E' Enid: 10.5 cm/sec TR max enid: 369.9 cm/sec RAP systole: 8.0 mmHg TR max P.7 mmHg RVSP(TR): 62.7 mmHg MALA Index (I,D): 1.9 MALA Index (V,D): 1.7 Dimensionless Index: 0.74 E/e' (avg): 13.9 E/e' (lat): 11.7 E/e' (sept): 17.1 62 Procedure Note Feng Johnson MD - 07/11/2021 Echocardiographic Report Interpretation Summary A complete two-dimensional transthoracic echocardiogram was performed (2D, M- mode, Doppler and color flow Doppler). The study was technically adequate and no previous studies are available for comparison. Normal left ventricular size and systoli c function. LV ejection fraction calculated using th e bi-plane method of disks is 62 %. Flattened septum is consistent with RV v olume overload. The RV is dilated. Normal RV systolic fu nction using TAPSE criteria. There is no pericardial effusion. Left Ventricle: Normal left ventricular size and systoli c function. Relative width thickness measures suggest concentric changes. LV ejection fraction calculated using the bi-plane method of disks is 62 %. Flattened septum is consistent with RV volume overload. I WMSI = 1.00 % Normal = 100 Segments Size X - Cannot 2 - 1-2 small Interpret 1 - Normal Hypokinetic 3 - Akinetic 4 - Dyskinetic3-5 moderate 5 - Aneurysmal 6-14 large 15-16 diffuse 3D imaginD volumes were not performed in this st udy. Cardiac Mechanics/Speckle Tracking Imagi ng: Speckle tracking imaging was not perform ed in this study. (GE Study). Diastology: LV relaxation appears normal. Right Ventricle: The RV is dilated. Normal RV systolic fu nction using TAPSE criteria. Atria: Atria are normal in size. Mitral Valve: The mitral valve is normal. There is no mitral valve stenosis. There is trace mitral regurgitation. Tricuspid Valve: The tricuspid valve is normal. There is mild to moderate tricuspid regurgitation. Estimated RVSP is 68mmHg. The tricuspid valve regurgitation velocity suggests severe pulmonary hypertension. Aortic Valve: The aortic valve is trileaflet. Marked a ortic valve calcification. No aortic regurgitation is present. Pulmonic Valve: The pulmonic valve is normal in structur e and function. Mild pulmonic valvular regurgitation. Great Vessels: The aortic root is normal size. The aort ic arch appears normal. The inferior vena cava is dilated with normal respiratory variation. Pericardium/Pleural: There is no pericardial effusion. MMode/2D Measurements IVSd: 0.89 cm LVIDd: 4.2 cm LVPWd: 0.98 cm Ao root diam: 3.2 cm LVOT diam: 2.3 cm Ao root area: 8.3 cm2 LVOT area: 4.2 cm2 LA dimension: 3.3 cm EDV(MOD-A4C): 74.1 ml EDV(MOD-A2C): 103.3 ml ESV(MOD-A4C): 27.2 ml ESV(MOD-A2C): 41.7 ml EF(MOD-A4C): 63.3 % EF(MOD-A2C): 59.7 % LAV(MOD-A2C): 35.3 ml EDV(MOD-bp): 89.3 ml LAV(MOD-A4C): 34.3 ml ESV(MOD-bp): 34.4 ml LAV(MOD-bp): 38.8 m l EF(MOD-bp): 61.5 % LAV(MOD-bp) Indexed : 22.1 ml/m2 EDV (MOD-bp) Index: 50.7 ml/m2 ESV (MOD-bp) Index: 19.5 ml/m2 RWT: 0.46 cm TAPSE (>1.6): 2.6 c m Doppler Measurements MV E max enid: 123.3 cm/sec MV V2 max: 135.9 cm/sec MV A max enid: 95.0 cm/sec MV max P.4 mmHg MV E/A: 1.3 MV V2 mean: 67.1 cm/sec MV toan n P.1 mmHg MV V2 VTI: 32.6 cm MVA(VT I): 4.5 cm2 MV P1/2t max enid: 123.3 cm/sec Ao V2 max: 211.4 cm/sec MV P1/2t: 49.4 msec Ao max P.9 mmHg MVA(P1/2t): 4.4 cm2 Ao V2 mean: 136.5 cm/sec Ao toan n P.5 mmHg MV dec slope: 730.2 cm/sec2 Ao V2 VTI: 44.6 cm MALA(I, D): 3.3 cm2 MALA(V, D): 3.1 cm2 LV V1 max P.7 mmHg SV(LVO T): 148.1 ml LV V1 mean P.0 mmHg LV V1 max: 155.4 cm/sec LV V1 mean: 119.1 cm/sec LV V1 VTI: 35.6 cm Med Peak E' Enid: 7.2 cm/sec Lat Pe ak E' Enid: 10.5 cm/sec TR max enid: 369.9 cm/sec RAP sy stole: 8.0 mmHg TR max P.7 mmHg RVSP(TR): 62.7 mmHg MALA Index (I,D): 1.9 MALA In dex (V,D): 1.7 Dimensionless Index: 0.74 E/e' ( avg): 13.9 E/e' (lat): 11.7 E/e' ( sept): 17.1 62 Performing Organization Address City/State/ZIP Code Phon e Number ISCV EKG, 12-Lead (07/11/2021)Only the most recent of5 resultswithin the time period is included. Specimen Narrative This result has an attachment that is no t available. Performing Organization Address City/State/ZIP Code Phon e Number GASPER IECG (ABNORMAL) Troponin T (In-House) (07/10/2021 6:09 AM JOINT TERMINAL ATTACK CONTROLLER)Only the most recent of4 resultswithin the time period is included. Pathologist Sig nature Troponin T 37 (H) <=18 ng/L [facility] Comment: [facility] CENTER < 19 ng/L Suggest retest at 3 to 6 hours later to rule out myocardial infarction >= 19 to <=52 ng/L Possible myocardial injury. Suggest retest at 3 hours. - a change of < 20 ng/L, retest at 6 hours - a change of >= 20 ng/L, suggestive of myocardial infarction > 52 ng/L Suggestive of myocardial infarction Critical value will be repor mary when cTnT is > 52 ng/L and only reported for the first in a series. Hemolyzed specimens with Hem olysis Index >100 (100 mg/dl or moderate hemolysis) may cause interferences and falsely low results. Specimen Blood Performing Organization Address [facility] Phon e Number [facility] CANCER Unless otherwise noted, [address] all lab tests performed by: Division of Pathology and Laboratory Medicine [address] (ABNORMAL) Calcium Ionized, Venous (07/09/2021 10:35 PM JOINT TERMINAL ATTACK CONTROLLER) Pathologist Sig nature V Ion Ca 0.96 (L) 1.15 - 1.29 mmol/L [facility] Specimen Blood Performing Organization Address [facility] Phon e Number [facility] CANCER Unless otherwise noted, [address] all lab tests performed by: Division of Pathology and Laboratory Medicine [address] (ABNORMAL) Lower Respiratory Culture w/Gram Stain (07/09/2021 5:33 PM JOINT TERMINAL ATTACK CONTROLLER) Final Report Normal site shayna present. [facility] Generally of low significance. CANCER CHARLIE TER Correlate with clinical data and culture history. (A) Path Review The results have been review ed and electronically signed by Pathologist: [facility] ANUJA BRADY MD #[id number] CAN[facility]ER CENTE R (A) Gram Stain Report Moderate WBC's seen [facility] Epithelial cells seen CANCER CENTER Moderate Gram Positive Cocci Moderate Gram Variable Madan (A) Specimen Sputum Induced Performing Organization Address City/[facility] Phon e Number [facility] CANCER Unless otherwise noted, [address] all lab tests performed by: Division of Pathology and Laboratory Medicine [address] Vascular Access Ultrasound- VAP RN Device (07/09/2021 3:00 PM JOINT TERMINAL ATTACK CONTROLLER) Specimen Narrative Systemgenerated, Documentation - 022 3:00 PM JOINT TERMINAL ATTACK CONTROLLER This procedure requires no interpretatio n from the radiologist. Legionella Urine Antigen Path Review (07/08/2021 5:17 PM JOINT TERMINAL ATTACK CONTROLLER) Legionella Urine Negative for L. pneumophila serogroup 1 antigen, suggesting no recent or current infection. However, infection due to other serogroups and species of Legionella are not detected by this assay. In additi [place] MD LICEA Antigen Path on, antigen may not be present in the urine in [facility] Review infection and the level of antigen present in the urine may be below the detection limit of the test. ... Reviewed and Electronically signed by Pathologist: Amaury Sinha MD, PhD #[id number] Comment: AMAURY SINHA MD, PhD - [id number] Dictated by: AMAURY SINHA MD, PhD - [id number] Dictated Date/Time: 07.11.19 1:11 AM JOINT TERMINAL ATTACK CONTROLLER Transcribed Date/Time: 07.11.2021 1:11 AM JOINT TERMINAL ATTACK CONTROLLER Electronically Signed By: ANIYAH SINHA MD, PhD - [id number] on 07.11.2021 1:11 AM C Specimen Urine Performing Organization Address City/State/ZIP Code Phon e Number [facility] CANCER Unless otherwise noted, [address] all lab tests performed by: Division of Pathology and Laboratory Medicine [address] Streptococcal Urine Antigen Path Review (07/08/2021 5:17 PM JOINT TERMINAL ATTACK CONTROLLER) Streptococcal Urine Presumptive negative for S. pneumoniae antigen in urine, suggesting no current or recent pneumococcal infection. Infection due to S. pneumoniae cannot be ruled out since the level of antigen present in [place] [facility] [place] Antigen Path Review the urine may be below the detection limit o f the [facility] CENTER test. ... Reviewed and Electronically signed by Pathologist: Amaury Sinha MD, PhD #[id number] Comment: AMAURY SINHA MD, PhD - [id number] Dictated by: AMAURY SINHA MD, PhD - [id number] Dictated Date/Time: 07.11.19 1:11 AM JOINT TERMINAL ATTACK CONTROLLER Transcribed Date/Time: 07.11.2021 1:11 AM JOINT TERMINAL ATTACK CONTROLLER Electronically Signed By: ANIYAH SINHA MD, PhD - [id number] on 07.11.2021 1:11 AM C Specimen Urine Performing Organization Address City/[facility] Phon e Number [facility] Unless otherwise noted, [address] all lab tests performed by: Division of Pathology and Laboratory Medicine [address] [place] [address] [place] Streptococcus pneumoniae Urine Antigen (07/08/2021 5:17 PM JOINT TERMINAL ATTACK CONTROLLER) Pathologist [facility] Streptococcal Urine Presumptive negative for S. pneumoniae antigen in the urine, suggesting no current or recent pneumococcal infection. However, infection due to S. pneumoniae cannot be completely ruled out since the leve [facility] Antigen Interpretation l of antigen present in the urine may be below the [facility] detection limit of the test. Streptococcal Urine Negative [facility] Antigen Interpretation [facility] Specimen Urine Performing Organization Address City/[facility] Phon e Number [facility] CANCER Unless otherwise noted, [address] all lab tests performed by: Division of Pathology and Laboratory Medicine [address] [place] [address] Legionella Urine Antigen (07/08/2021 5:17 PM JOINT TERMINAL ATTACK CONTROLLER) Pathologist [facility] Legionella Urine Negative for L. pneumophila serogroup 1 antigen, suggesting no recent or current infection. However, infections due to other serogroups and species of Legionella are not detected by this assay. In addition, antigen may not be present in the urine in [facility] Antigen Interpretation early infection and the leve l of antigen present in the urine may be below the detection limit of the test. CANCER C ENTER Legionella Urine Negative [facility] Antigen Interpretation [facility] Specimen Urine Performing Organization Address City/[facility] Phon e Number [facility] CANCER Unless otherwise noted, [address] all lab tests performed by: Division of Pathology and Laboratory Medicine [address] [place] [address] General Laboratory Add-On Test (07/08/2021 3:35 PM JOINT TERMINAL ATTACK CONTROLLER) Pathologist Sig nature Ordered Test Added [facility] Test Needed Procalcitonin [facility] Specimen Existing Performing Organization Address City/State/ZIP Code Phon e Number [facility] CANCER Unless otherwise noted, [address] all lab tests performed by: Division of Pathology and Laboratory Medicine [address] [place] [address] MRSA Screening Culture (07/08/2021 3:23 PM JOINT TERMINAL ATTACK CONTROLLER) Final Report No Methicillin resistant [facility] Staphylococcus aureus [facility] isolated. Path Review Culture yield may be affecte d by sample quality, prior treatment, and transportation conditions. [facility] ... CANCER CENTER The results have been reviewed and electronically sign ed by Pathologist: Amaury Sinha MD, PhD #[id number] Specimen Nasal Performing Organization Address City/[facility] Code Phon e Number [facility] Unless otherwise noted, [address] all lab tests performed by: Division of Pathology and Laboratory Medicine [address] [place] [address] CT Chest Pulmonary Embolism with Contrast (07/08/2021 1:38 PM JOINT TERMINAL ATTACK CONTROLLER) Specimen Impressions [id number] - 07/08/2021 2:09 PM JOINT TERMINAL ATTACK CONTROLLER There are no pulmonary emboli. There are new findings in the left lower lobe raising the possibility of aspiration/pneumonia. 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 Indication: Syncope. Hypoxemia. Comparison: Chest CT 05/03/2021. Technique: Spiral CT of the chest is per formed using intravenous contrast. Findings: 1. The pulmonary arteries are well-opaci fied with contrast, are normal in caliber and there are no pulmonary emboli to the segmental-subsegmental level. 2. There is peribronchial soft tissue-fl uid within segmental divisions of the left lower lobe bronchi extending to the subsegmental level and there is a new focal atelectatic-consolidative opacity in th e left lower lobe (image 346, series 8). The lungs are emphysematous. 3. There are no enlarged intrathoracic l ymph nodes. 4. There is coronary artery calcificatio n consistent with sequelae of atherosclerosis. 5. Limited images of the liver are shavon l. 6. A feeding tube has its tip in the lum en of the stomach. 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 Indication: Syncope. Hypoxemia. Comparison: Chest CT 05/03/2021. Technique: Spiral CT of the chest is per formed using intravenous contrast. Findings: 1. The pulmonary arteries are well-opaci fied with contrast, are normal in caliber and there are no pulmonary emboli to the segmental-subsegmental level. 2. There is peribronchial soft tissue-fl uid within segmental divisions of the left lower lobe bronchi extending to the subsegmental level and there is a new focal atelectatic-consolidative opacity in the left lower lobe (image 346, series 8). The lungs are emp hysematous. 3. There are no enlarged intrathoracic l ymph nodes. 4. There is coronary artery calcificatio n consistent with sequelae of atherosclerosis. 5. Limited images of the liver are shavon l. 6. A feeding tube has its tip in the lum en of the stomach. IMPRESSION: There are no pulmonary emboli. There are new findings in the left lower lobe raising the possibility of aspiration/pneumonia. Performing Organization Address City/State/ZIP Code Phon e Number [id number] XR Abdomen AP (07/08/2021 1:31 PM JOINT TERMINAL ATTACK CONTROLLER) Specimen Impressions [id number] - 07/08/2021 1:34 PM JOINT TERMINAL ATTACK CONTROLLER Feeding tube tip overlying the gastric f undus. Recommend further advancement. 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 Technique: XR ABDOMEN AP Findings: Feeding tube is seen with tip overlying the gastric fundus. Recommend further advancement. 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 Technique: XR ABDOMEN AP Findings: Feeding tube is seen with tip overlying the gastric fundus. Recommend further advancement. IMPRESSION: Feeding tube tip overlying the gastric f undus. Recommend further advancement. Performing Organization Address City/State/ZIP Code Phon e Number [id number] (ABNORMAL) POC Chem 8 without Hemoglobin and Hematocrit (07/08/2021 12:14 PM JOINT TERMINAL ATTACK CONTROLLER) POC NA 131 (L) 138 - 146 POC [facility] mEq/L POC K 2.3 (C) 3.5 - 4.9 POC [facility] Comment: mEq/L Method description: The i-ST AT is an analyzer used for in vitro quantification of various analytes in whole blood. The device uses a single disposable cartridge which contains microfabricated sensors, a calibration solution, fluidics system, and a waste chamber. Each test cartridge contains chemically sensitive biosensors on a silicon chip that are configured to perform specific tests. The microfabricated sensors measure analyte concentration by an electrochemical assay. POC CL 81 (L) 98 - 109 POC [facility] mEq/L POC VTCO2 32 (H) 24 - 29 mEq/L POC [facility] POC Anion Gap 21 (H) 10 - 20 POC [facility] mmol/L POC BUN 16 8 - 26 mg/dL POC [facility] POC Crea 1.0 0.6 - 1.3 POC [facility] Comment: mg/dL Medications, especially hydr oxyurea or supplements, such as ascorbate, can interfere with test results causing a falsely and significantly higher result than expected. If a problem is suspected with a patient's result, a sample should be sent to the laboratory for confirmatory testing. Method description: The i-ST AT is an analyzer used for in vitro quantification of various analytes in whole blood. The device uses a single disposable cartridge which contains microfabricated sensors, a calibration solution, fluidics system, and a waste chamber. Each test cartridge contains chemically sensitive biosensors on a silicon chip that are configured to perform specific tests. The microfabricated sensors measure analyte concentration by an electrochemical assay. POC eGFR-AA 87 >=60 POC [facility] Comment: mL/min/1.73 Normal eGFR >= 60 mL/min/1.73 m2 m2 The eGFR is calculated using the CKD-EPI equation. The eGFR declines with age. eGFR <60 mL/min/1.73 m2 is considered as "decreased" This equation should only be used for patients 18 and older. According to the [facility]'s Kidney Disease Outcome Quality Initiative (KDOQI) classification and 2012 Kidney Disease Improving Global Outcomes (KDIGO) Clinical Practice Guideline, the stage of CKD should be categorized based on estimated GFR. Stage Description GFR mL/min/1.73 m2 1 Kidney damage with normal or high GFR >=90 2 Kidney damage with mild decrease in GFR 60-89 3a Mild to moderate decrease in GFR 45-59 3b Moderate to severe decrease in GFR 30-44 4 Severe decrease in GFR 15-29 5 Kidney failure <15 (or dialysis) POC eGFR-JOSELITO 75 >=60 POC [facility] Comment: mL/min/1.73 Normal eGFR >= 60 mL/min/1.73 m2 m2 The eGFR is calculated using the CKD-EPI equation. The eGFR declines with age. eGFR <60 mL/min/1.73 m2 is considered as "decreased" This equation should only be used for patients 18 and older. According to the [facility]'s Kidney Disease Outcome Quality Initiative (KDOQI) classification and 2012 Kidney Disease Improving Global Outcomes (KDIGO) Clinical Practice Guideline, the stage of CKD should be categorized based on estimated GFR. Stage Description GFR mL/min/1.73 m2 1 Kidney damage with normal or high GFR >=90 2 Kidney damage with mild decrease in GFR 60-89 3a Mild to moderate decrease in GFR 45-59 3b Moderate to severe decrease in GFR 30-44 4 Severe decrease in GFR 15-29 5 Kidney failure <15 (or dialysis) POC Glucose 132 (H) 70 - 99 mg/dL POC [facility] POC Ion Ca 1.00 (L) 1.12 - 1.32 POC [facility] mmol/L POC Sample Type Venous POC [facility] POC Clean Dev Yes POC [facility]: [facility], [address] [place] [address], [place] [address]; [employer]: Loida Chavez MD Specimen Blood Performing Organization Address City/[facility]/ZIP Code Phon e Number POC T[facility] POC Critical (07/08/2021 12:14 PM JOINT TERMINAL ATTACK CONTROLLER) Pathologist Sig nature POC Critical Comment See NoteComment: POC [facility] Test performer notified Ordering Licensed Provider and /or designee of POC Potassium critical Results. Specimen Blood Performing Organization Address [facility] Code Phon e Number POC [facility] (ABNORMAL) Procalcitonin (07/08/2021 12:13 PM JOINT TERMINAL ATTACK CONTROLLER) Procalcitonin 0.15 (H) <=0.08 ng/mL [facility] Comment: [facility] Procalcitonin > 2.00 ng/mL: Procalcitonin levels above 2.00 ng/mL are highly suggestive of a high risk for systematic bacterial infection/ severe sepsis and/or septic shock. Procalcitonin < 0.50 ng/mL: Procalcitonin levels below 0.50 ng/mL are at low risk for progression to severe sepsis and/ or septic shock. Procalcitonin (ProCT) betwee n 0.15 and 2.0 ng/mL do not exclude infection, because localized infections (without systemic signs) may be associated with such low levels. Results greater than 400 ng/ mL may not be reliable due to the matrix effect with extended dilution as it exceeds the starchmaker's recommended limit. Caution should be exercised when interpreting such values and done in conjunction with clinical context. Specimen Blood Performing Organization Address [facility] Phon e Number [facility] CANCER Unless otherwise noted, [place] [address] [address] all lab tests performed by: Division of Pathology and Laboratory Medicine [address] (ABNORMAL) Fractionated Bilirubin (07/08/2021 12:13 PM JOINT TERMINAL ATTACK CONTROLLER)Only the most recent of11 resultswithin the time period is included. Bili Total 0.7 <=1.2 mg/dL [facility] Comment: [facility] Indocyanine Green (ICG) may cause falsely elevated bilirubin results. Total and direct bilirubin must not be measured from samples containing indocyanine green. False elevation of total emmett irubin can be seen in patients with IgG concentrations above 28 g/L. Bili Direct 0.5 (H)Comment: <=0.3 mg/dL [facility] Indocyanine Green CANCER CENTER (ICG) may cause falsely elevated bilirubin results. Total and direct bilirubin must not be measured from samples containing indocyanine green. Bili Indirect 0.2 0.0 - 0.9 [facility] mg/dL CANCER CENTER Specimen Blood Performing Organization Address City/[facility] Phon e Number [facility] CANCER Unless otherwise noted, [address] all lab tests performed by: Division of Pathology and Laboratory Medicine [facility] [address] (ABNORMAL) Cardiac Panel (07/08/2021 12:13 PM JOINT TERMINAL ATTACK CONTROLLER) CK 112 39 - 308 U/L [facility] CK MB 2.4 <=10.4 ng/mL [facility] Troponin T 36 (H) <=18 ng/L [facility] Comment: [facility] CENTER < 19 ng/L Suggest retest at 3 to 6 hours later to rule out myocardial infarction >= 19 to <=52 ng/L Possible myocardial injury. Suggest retest at 3 hours. - a change of < 20 ng/L, retest at 6 hours - a change of >= 20 ng/L, suggestive of myocardial infarction > 52 ng/L Suggestive of myocardial infarction Critical value will be repor mary when cTnT is > 52 ng/L and only reported for the first in a series. Hemolyzed specimens with Hem olysis Index >100 (100 mg/dl or moderate hemolysis) may cause interferences and falsely low results. Specimen Blood Performing Organization Address [facility] Phon e Number [facility] CANCER Unless otherwise noted, [address] all lab tests performed by: Division of Pathology and Laboratory Medicine [facility] Sosamarshall Whyte aPTT (07/08/2021 12:13 PM JOINT TERMINAL ATTACK CONTROLLER) Pathologist Sig nature aPTT 30.7 24.7 - 36.8 second(s) [facility] CENTER Specimen Blood Performing Organization Address City/[facility]/ZIP Code Phon e Number [facility] CANCER Unless otherwise noted, [address] all lab tests performed by: Division of Pathology and Laboratory Medicine [address] [place] [address] Isabell (ABNORMAL) Prothrombin Time with INR (07/08/2021 12:13 PM JOINT TERMINAL ATTACK CONTROLLER) Pathologist Sig nature PT 15.3 (H)Comment: 11.5 - 13.9 [facility] Rechecked and second(s) CANCER CENTER Verified INR 1.29 (H)Comment: 0.90 - 1.10 [facility] Rechecked and CANCER CENTER Verified Specimen Blood Performing Organization Address [facility] Phon e Number [facility] CANCER Unless otherwise noted, [address] all lab tests performed by: Division of Pathology and Laboratory Medicine [address] (ABNORMAL) D Dimer (07/08/2021 12:13 PM JOINT TERMINAL ATTACK CONTROLLER) D-Dimer 0.77 (H) 0.10 - 0.50 [facility] Comment: mcg/ml FEU CANCER CENTER Rechecked and Verified The cut off value for exclusion of venous thromboembol ism is <0.51 mcg/mL FEUs (fibrinogen equivalent units). Specimen Blood Performing Organization Address [facility] Phon e Number [facility] CANCER Unless otherwise noted, [address] all lab tests performed by: Division of Pathology and Laboratory Medicine [address] ALT (07/08/2021 12:13 PM JOINT TERMINAL ATTACK CONTROLLER)Only the most recent of11 resultswithin the time period is included. Pathologist Sig nature ALT 16 <=41 U/L [facility] Specimen Blood Performing Organization Address [facility] Phon e Number [facility] Unless otherwise noted, [address] all lab tests performed by: Division of Pathology and Laboratory Medicine [address] Aspartate Aminotransferase (07/08/2021 12:13 PM JOINT TERMINAL ATTACK CONTROLLER)Only the most recent of11 resultswithin the time period is included. Pathologist Sig nature AST 26 <=40 U/L [facility] Specimen Blood Performing Organization Address [facility] Phon e Number [facility] CANCER Unless otherwise noted, [address] all lab tests performed by: Division of Pathology and Laboratory Medicine [address] (ABNORMAL) Total Protein (07/08/2021 12:13 PM JOINT TERMINAL ATTACK CONTROLLER)Only the most recent of11 resultswithin the time period is included. Pathologist Sig nature Total Protein 5.9 (L) 6.4 - 8.3 g/dL [facility] Specimen Blood Performing Organization Address City/[facility] Phon e Number [facility] CANCER Unless otherwise noted, [address] all lab tests performed by: Division of Pathology and Laboratory Medicine [address] Alkaline Phosphatase (07/08/2021 12:13 PM JOINT TERMINAL ATTACK CONTROLLER)Only the most recent of11 results within the time period is included. Pathologist Sig nature Alk Phos 49 40 - 129 U/L [facility] Specimen Blood Performing Organization Address City/[facility] Phon e Number [facility] CANCER Unless otherwise noted, [address] all lab tests performed by: Division of Pathology and Laboratory Medicine [address] (ABNORMAL) Albumin Level (07/08/2021 12:13 PM JOINT TERMINAL ATTACK CONTROLLER)Only the most recent of11 resultswithin the time period is included. Pathologist Sig nature Albumin Lvl 3.4 (L) 3.5 - 5.2 gm/dL [facility] Specimen Blood Performing Organization Address City/[facility] Phon e Number [facility] Unless otherwise noted, [address] all lab tests performed by: Division of Pathology and Laboratory Medicine [address] X-ray Chest 1 View (07/08/2021 11:38 AM JOINT TERMINAL ATTACK CONTROLLER) Specimen Impressions [id number] - 07/08/2021 11:41 AM JOINT TERMINAL ATTACK CONTROLLER No acute infiltrates are visualized. Narrative [id number] - 07/08/2021 11:41 AM JOINT TERMINAL ATTACK CONTROLLER FULL RESULT: Examination: XR CHEST 1 VW, 07/08/2021 11: 38 AM Clinical History: Squamous cell carcinom a of the larynx Indication: Baseline Chest X-Ray, COVID- 19 Not Suspected Comparison: Chest CT May 03, 2021, chest radiography March 24, 2021 Technique: Anteroposterior radiograph of the chest. Findings: No infiltrates, effusions or suspicious pulmonary nodules are detected. Heart size is within normal limits. No gross adenopathy is detected. Procedure Note Giulia Isabel MD - 07/08/2021 FULL RESULT: Examination: XR CHEST 1 VW, 07/08/2021 11: 38 AM Clinical History: Squamous cell carcinom a of the larynx Indication: Baseline Chest X-Ray, COVID- 19 Not Suspected Comparison: Chest CT May 03, 2021, chest radiography March 24, 2021 Technique: Anteroposterior radiograph of the chest. Findings: No infiltrates, effusions or suspicious pulmonary nodules are detected. Heart size is within normal limits. No gross adenopathy is detected. IMPRESSION: No acute infiltrates are visualized. Performing Organization Address City/State/[facility] Phon e Number [id number] COVID-19 (SARS-CoV-2)Asymptomatic-LT (07/08/2021 11:23 AM JOINT TERMINAL ATTACK CONTROLLER)Only the most recent of2 resultswithin the time period is included. COVID19 Not Detected Not Detected [facility] (SARS-CoV-2) [facility] COVID19 SARS Inpatient Admission [facility] Indication [facility] CENTER Covid 19 Comment See Note [facility] Comment: [facility] The ying SARS-CoV-2 nucleic acid test for use on the ying Alyson System is a real-time RT-PCR assay intended for the qualitative detection of SARS-CoV-2 (COVID-19) viral RNA in nasopharyngeal swabs from either individuals suspected of COVID-19 by their healthcare provider or from any individual, including individuals without symptoms or other reasons to suspect COVID-19. A fact sheet for patients provided by the starch[employer] ([employer]) can be reviewed at: https://www.fda.gov/media/15 2614/download. A fact sheet for Health Care providers is provided by the [employer] ([employer]) and can be reviewed at: https://www.fda.gov/media/588984/download Results must be interpreted within the context of all relevant clinical and laboratory findings and should not form the sole basis for a diagnosis or treatment decision. Positive results do not rule out bacterial infection or co- infection with other viruses. Negative results do not preclude SARS-CoV-2 infection and must be combined with clinical observations, patient history, and/or epidemiological information. This assay has been authoriz ed by the FDA for use only under Emergency Use Authorization (EUA) in laboratories that have been CLIA-certified to perform moderate-complexity and high-complexity tests. The Microbiology Laboratory at [facility], CLIA Accreditation # [id number] and CAP Accreditation #[id number], verified the performance characteristics of this assay. Internal controls are used to monitor all stages of the test process. Specimen Nasopharyngeal Swab Performing Organization Address City/[facility]/ZIP Code Phon e Number [facility] Unless otherwise noted, [place] [address] CENTER all lab tests performed by: Division of Pathology and Laboratory Medicine [address] [facility] [address] Head without Contrast (07/08/2021 11:05 AM JOINT TERMINAL ATTACK CONTROLLER) Specimen Impressions [id number] - 07/08/2021 11:37 AM JOINT TERMINAL ATTACK CONTROLLER No acute intracranial abnormality. Narrative [id number] - 07/08/2021 11:37 AM JOINT TERMINAL ATTACK CONTROLLER FULL RESULT: EXAMINATION: CT HEAD WO CONTRAST on 2021 11:05 AM COMPARISON: CT neck, 05/03/21 HISTORY: Head injury; laryngeal carcinom a. INDICATION: head injury, Syncope hit hea d TECHNIQUE: CT scan of the brain was perf ormed without intravenous contrast as per departmental protocol. FINDINGS: INTRACRANIAL: The brain parenchyma is un remarkable. The paul-white matter differentiation is maintained. There is no evidence for intra-axial or extra-axial hemorrhage. No midline shift or mass effect seen. There is no evidence for hydrocephalus. There is no large acute territorial infa rction. CALVARIA: The calvaria and extracranial soft tissues are unremarkable. ORBITS: The orbital structures are unrem arkable. SINUSES: The paranasal sinuses and masto id air cells are clear. Procedure Note Salina Mcmillan MD - 07/08/2021 FULL RESULT: EXAMINATION: CT HEAD WO CONTRAST on 2021 11:05 AM COMPARISON: CT neck, 05/03/21 HISTORY: Head injury; laryngeal carcinom a. INDICATION: head injury, Syncope hit hea d TECHNIQUE: CT scan of the brain was perf ormed without intravenous contrast as per departmental protocol. FINDINGS: INTRACRANIAL: The brain parenchyma is un remarkable. The paul-white matter differentiation is maintained. There is no evidence for intra-axial or extra-axial hemorrhage. No midline shift or mass effect seen. There is no evidence for hydrocephalus. There is no large acute territorial infa rction. CALVARIA: The calvaria and extracranial soft tissues are unremarkable. ORBITS: The orbital structures are unrem arkable. SINUSES: The paranasal sinuses and masto id air cells are clear. IMPRESSION: No acute intracranial abnormality. Performing Organization Address City/State/ZIP Code Phon e Number [id number] (ABNORMAL) NT-Pro BNP (In-House) (06/22/2021 11:54 AM JOINT TERMINAL ATTACK CONTROLLER) Pathologist Sig nature NT ProBNP 1,199 (H) <=125 pg/mL [facility] Specimen Blood Performing Organization Address City/State/ZIP Code Phon e Number [facility] CANCER Unless otherwise noted, [address] all lab tests performed by: Division of Pathology and Laboratory Medicine [address] [place] [address] CKMB (06/22/2021 11:54 AM JOINT TERMINAL ATTACK CONTROLLER) Pathologist Sig [facility] CK MB 2.6 <=10.4 ng/mL [facility] Specimen Blood Performing Organization Address City/State/ZIP Code Phon e Number [facility] CANCER Unless otherwise noted, [address] all lab tests performed by: Division of Pathology and Laboratory Medicine [address] [place] [address] Creatine Kinase (06/22/2021 11:54 AM JOINT TERMINAL ATTACK CONTROLLER) Pathologist Sig [facility] CK 84 39 - 308 U/L [facility] Specimen Blood Performing Organization Address City/[facility]/ZIP [facility] Phon e Number [facility] Unless otherwise noted, [address] all lab tests performed by: Division of Pathology and Laboratory Medicine [address] [place] [address] CT Head/Neck Simulation without Contrast (06/21/2021 9:00 AM JOINT TERMINAL ATTACK CONTROLLER)Only the most recent of2 resultswithin the time period is included. Specimen Narrative Systemgenerated, Documentation - 022 9:00 AM JOINT TERMINAL ATTACK CONTROLLER This procedure requires no interpretatio n from the radiologist. FL Modified Barium Swallow w Speech (05/18/2021 9:57 AM JOINT TERMINAL ATTACK CONTROLLER) Specimen Impressions [id number] - 05/18/2021 3:20 PM JOINT TERMINAL ATTACK CONTROLLER 1. Trace silent penetration without aspi ration seen with thin liquid barium. 2. Mild pharyngeal residue with cracker partially reduced with liquid wash. 3. Please refer to the separately dictat ed speech pathology report for further details and recommendations. 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 Indication: Evaluate swallowing function , baseline study. Comparison: None. Technique: A modified barium swallow w as performed in conjunction with speech pathology. The patient was given barium mixed with a variety of consistencies including thin liquid, pudding, and cracker to swallow by mouth under videofluoroscopy. Findings: The oral bolus formation and transit were normal. There was no nasopharyngeal reflux. There was trace silent penetration without aspiration seen with thin liquid barium. There was no penet ration or aspiration seen with pudding, and cracker. There was mild pharyngeal residue with cracker partially reduced with liquid wash. Pharyngeal contraction was symmetric. 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 Indication: Evaluate swallowing function , baseline study. Comparison: None. Technique: A modified barium swallow wa s performed in conjunction with speech pathology. The patient was given barium mixed with a variety of consistencies including thin liquid, pudding, and cracker to swallow by mouth under videofluoroscopy. Findings: The oral bolus formation and transit were normal. There was no nasopharyngeal reflux. There was trace silent penetration without aspiration seen with thin liquid barium. There was no penetration or aspiration seen with pudding, and cracke r. There was mild pharyngeal residue with cracker partially reduced with liquid wash. Pharyngeal contraction was symmetric. IMPRESSION: 1. Trace silent penetration without aspi ration seen with thin liquid barium. 2. Mild pharyngeal residue with cracker partially reduced with liquid wash. 3. Please refer to the separately dict ed speech pathology report for further details and recommendations. Performing Organization Address City/State/ZIP Code Phon e Number [id number] COVID-19 (MAURA-CoV-2) PCR Asymptomatic (05/11/2021 9:05 AM JOINT TERMINAL ATTACK CONTROLLER)Only the most recent of2 resultswithin the time period is included. COVID19 SARS Pre-Out of OR [facility] Indication Procedure CANCER CENTER COVID19 SARS Result Not Detected Not Detected [facility] COVID19 SARS SARS-CoV-2 NOT Detected. [facility] CANCER [place] Reference Range: Not Detected Methodology: The Fontanez Real Time SARS-CoV-2 assay is a qualitative real-time reverse numerical control nesting operator polymerase chain reaction (screen tender helper-PCR) test to detect RNA from SARS-CoV-2 in nasal, nasopharyngeal and oropharyngeal swabs from patients with signs and symptoms of infection who ar e suspected of COVID-19 by their health care provider. The [employer]ane[employer] RealTime SARS-CoV-2 performed on the AmVac000 System is a dual target assay with primers and probes for the RdRp and N genes. Results must be interpreted within the context of all relevant clinical and laboratory findings, and epidemiological risk factors. Positive results are indicative of the presence of SARS-CoV-2 RNA; clinical correlation with patient history and other diagnostic information is ne cessary to determine patient infection status. Positive results do not rule out bacterial infection or co-infection with other viruses. Negative results do not preclude SARS- CoV-2 infection and should not be used as the sole basis for patient management decisions. The Fontanez RealTime SARS-CoV -2 assay is for in vitro diagnostic use under FDA Emergency Use Authorization only. Testing is limited to laboratories certified under the Clinical Laboratory Improvement Tiffanie ndments of 1988 (CLIA), 42U.S.C. 263a, to perform high complexity tests. The T est was performed by the CLIA-certified, high- complexity Molecular Diagnostics Laboratory (MDL) at [facility] under the Food and Drug Administration (FDA) s Emergency Use Authorization. Factsheet for patients: https://www.mdanderson.org/Abb ottFactSheetPatients Factsheet for healthcare pro viders: https://www.md[facility]erson.org/AbbottFactSheetHCP Test performed by: [facility] [address] [place] [address] Specimen Nasopharyngeal Swab Performing Organization Address City/State/ZIP Code Phon e Number [facility] CANCER Unless otherwise noted, [place] [address] CHRISNEY all lab tests performed by: Division of Pathology and Laboratory Medicine [address] Orthopantogram (05/06/2021 10:53 AM JOINT TERMINAL ATTACK CONTROLLER) Specimen Narrative Systemgenerated, Documentation - 021 10:53 AM JOINT TERMINAL ATTACK CONTROLLER This procedure requires no interpretatio n from the radiologist. BOTTLE BLOWER Videostroboscopy (05/06/2021 9:58 AM JOINT TERMINAL ATTACK CONTROLLER) Narrative OLYMPUS - 05/06/2021 9:58 AM JOINT TERMINAL ATTACK CONTROLLER Sara Harris, PhD 05/06/2021 10:12 AM BOTTLE BLOWER Videostroboscopy Laterality (if applicable): right Date/Time: 05/06/2021 9:58 AM Provider Information: Performed by: Sara Harris, PhD Authorized by: OUMAR Staples Indication: Indications for procedure: abnormal symp paulo Abnormal symptom: dysphonia Anesthesia: Local anesthesia used?: local anesthesia used Anesthesia: topical application Local anesthetic: lidocaine spray Sedation: Patient sedated?: patient not sedated Performing Organization Address City/[facility]/ZIP [facility] Phon e Number OLYMPUS Glucose, Random (05/04/2021 11:10 AM JOINT TERMINAL ATTACK CONTROLLER) Glucose Random 136 70 - 199 mg/dL [facility] Comment: CANCER CENTER Effective 12/29/15, the gluco se reference intervals have been updated based on [place] [employer] guidelines (Standards of Medical Care in Diabetes 2016. Diabetes Care 2016; 39: S13-S22). Fasting blood glucose: Normal: 70-99 mg/dL Impaired fasting glucose (in creased risk for diabetes or pre-diabetes): 100- 125 mg/dL Diabetes mellitus: >/=126 mg/dL Random blood glucose: Normal: 70-199 mg/dL Note: Random glucose >100 mg/dL is assoc iated with increased risk for diabetes Specimen Blood Narrative [facility] CANCER CHRISNEY - 12:55 PM JOINT TERMINAL ATTACK CONTROLLER Not fasting Performing Organization Address [facility] Phon e Number [facility] CANCER Unless otherwise noted, [address] all lab tests performed by: Division of Pathology and Laboratory Medicine [address] [place] [address] Vitamin D 25OH (05/04/2021 11:10 AM JOINT TERMINAL ATTACK CONTROLLER) Vitamin D 25 OH 42 30 - 100 ng/mL [facility] Comment: CANCER [place]ISNEY Reference Range: Deficiency: <10 ng/mL Insufficiency: 10-29 ng/mL Sufficiency: 30-100 ng/mL Potential toxicity: >100 ng/mL Specimen Blood Performing Organization Address City/[facility] Phon e Number [facility] CANCER Unless otherwise noted, [address] all lab tests performed by: Division of Pathology and Laboratory Medicine [address] [place] [address] TMP HCV Ab Path Interp (05/03/2021 8:26 AM JOINT TERMINAL ATTACK CONTROLLER) HCV Ab Path There is NO serologic evidence of Hepatitis C vi autumn antibody. SELAM CAMEJO DONOR Interp Comment: CENTER RUFINO FERNANDEZ, Dictated by: RUFINO FERNANDEZ, Dictated Date/Time: 05.04.20 6:33 AM JOINT TERMINAL ATTACK CONTROLLER Transcribed Date/Time: 05.04.2021 6:33 AM JOINT TERMINAL ATTACK CONTROLLER Electronically Signed By: RUFINO FERNANDEZ, on 1 07.05.2020 6:33 AM C Specimen Blood Performing Organization Address City/[facility] Phon e Number [facility] [address] [place] [id number] Hepatitis C Virus Ab (05/03/2021 8:26 AM JOINT TERMINAL ATTACK CONTROLLER) HCVAb. Non Reactive Non Reactive [facility] Comment: CENTER Antibody detection in the im munocompromised and immunosuppressed population may be delayed or absent entirely. Therefore serial testing, correlation with other clinical findings, and supplemental testin g (if available) should be taken into consideration when interpreting the results. Performed at: [facility] [address] [place] [address] Specimen Blood Performing Organization Address [facility] Phon e Number [facility] [address] [place] [id number] TSH (05/03/2021 8:26 AM JOINT TERMINAL ATTACK CONTROLLER) Pathologist Sig nature TSH 3.71 0.27 - 4.20 mcunit/mL [facility] CAN ER CENTER Specimen Blood Performing Organization Address City/[facility] Phon e Number [facility] CANCER Unless otherwise noted, [address] all lab tests performed by: Division of Pathology and Laboratory Medicine [address] Free T4 (05/03/2021 8:26 AM JOINT TERMINAL ATTACK CONTROLLER) Pathologist Sig nature T4 Free 1.46 0.93 - 1.70 ng/dL [facility] CANCER C ENTER Specimen Blood Performing Organization Address [facility] Phon e Number [facility] CANCER Unless otherwise noted, [address] all lab tests performed by: Division of Pathology and Laboratory Medicine [address] Soft Tissue Neck with Contrast (05/03/2021 7:27 AM JOINT TERMINAL ATTACK CONTROLLER) Specimen Impressions [id number] - 05/03/2021 1:54 PM JOINT TERMINAL ATTACK CONTROLLER Supraglottic carcinoma, 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 Narrative [id number] - 05/03/2021 1:54 PM JOINT TERMINAL ATT[employer]OLLER FULL RESULT: Examination: CT SOFT TISSUE NECK W CONTR AST on 05/03/2021 7:27 AM Clinical History: Untreated laryngeal ca rcinoma, status post biopsy elsewhere Indication: Baseline [facility] imaging assessment. Comparison: Outside PET/CT 04/07/2021 Technique: Routine imaging was obtained with contrast through the upper aerodigestive tract and neck. Findings: Visualized aspects of the brai n, orbits and paranasal sinuses were without worrisome finding. There is abnormal enhancement in the reg ion of the junction of the median glossoepiglottic fold and epiglottis and corresponds to abnormal tracer activity on the recent PET/CT. This is annotated on imag es 133-137 and also includes the mid and left side of the epiglottis for which I've made additional annotations. I've made additional annotations on series 601. There is a defect in the left side of the epiglottis which is annotated on image 134, potentially due to biopsy but also potentially due to tumor. I believe there is probably some extension into the preepiglottic space and thus the staging is appropriately T3. More inferiorly the false and true cord region appear to be spared and the airway is intact. There is no adenopathy on either CT or P ET/CT. Procedure Note Ortega Mayberry MD - 05/03/2021 FULL RESULT: Examination: CT SOFT TISSUE NECK W CONTR AST on 05/03/2021 7:27 AM Clinical History: Untreated laryngeal ca rcinoma, status post biopsy elsewhere Indication: Baseline [facility] imaging assessment. Comparison: Outside PET/CT 04/07/2021 Technique: Routine imaging was obtained with contrast through the upper aerodigestive tract and neck. Findings: Visualized aspects of the brai n, orbits and paranasal sinuses were without worrisome finding. There is abnormal enhancement in the reg ion of the junction of the median glossoepiglottic fold and epiglottis and corresponds to abnormal tracer activity on the recent PET/CT. This is annotated on images 133-137 and also includes the mid and left side of t he epiglottis for which I've made additional annotations. I've made additional annotations on series 601. There is a defect in the left side of the epiglottis which is annotated on image 134, potentially due to biopsy but also potentially due to tumor. I believe there is probably some extension into the preepiglottic space and thus the staging is appropriately T3. More inferiorly the false and true cord region appear to be spared and the airway is intact. There is no adenopathy on either CT or P ET/CT. 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 Performing Organization Address City/State/ZIP Code Phon e Number [id number] CT Chest with Contrast (05/03/2021 7:27 AM JOINT TERMINAL ATTACK CONTROLLER) Specimen Impressions [id number] - 05/03/2021 1:02 PM [employer]OLLER There are numerous small bilateral pulmo nary nodules that are likely secondary to inflammatory/ infectious process, however follow-up is recommended to evaluate resolution (3 months). Narrative [id number] - 05/03/2021 1:02 PM [employer]OLLER FULL RESULT: Examination: CT CHEST W CONTRAST, 2020 7:27 AM Clinical History: Primary squamous cell carcinoma of larynx Indication: Cancer staging or restaging, larynx scc; tobacco history Comparison: 04/07/2021 Technique: CT of the chest was performed with intravenous contrast. Findings: Emphysematous changes of the lungs. Ther e are numerous bilateral pulmonary nodules measuring less than 5 mm, some of which are clustered. No evidence of consolidation. No pleural effusion. Mild coronary artery calcification is present. No supraclavicular, mediastinal hilar or axillary adenopathy. The adrenal glands, liver and the spleen are within normal limits. The patient is status post cholecystectomy. No adenopathy in the upper abdomen. There are degenerative changes of the sp ine. Procedure Note Elaine Samaniego MD - 05/03/20 21 FULL RESULT: Examination: CT CHEST W CONTRAST, 2020 7:27 AM Clinical History: Primary squamous cell carcinoma of larynx Indication: Cancer staging or restaging, larynx scc; tobacco history Comparison: 04/07/2021 Technique: CT of the chest was performed with intravenous contrast. Findings: Emphysematous changes of the lungs. Ther e are numerous bilateral pulmonary nodules measuring less than 5 mm, some of which are clustered. No evidence of consolidation. No pleural effusion. Mild coronary artery calcification is present. No supraclavicular, mediastinal hilar or axillary adenopathy. The adrenal glands, liver and the spleen are within normal limits. The patient is status post cholecystectomy. No adenopathy in the upper abdomen. There are degenerative changes of the sp ine. IMPRESSION: There are numerous small bilateral pulmo nary nodules that are likely secondary to inflammatory/ infectious process, however follow-up is recommended to evaluate resolution (3 months). Performing Organization Address City/State/ZIP Code Phon e Number [id number] POC Creatinine (05/03/2021 6:56 AM JOINT [employer]MIN[employer] ATT[employer] CONTROLLER) POC Crea 1.2 0.6 - 1.3 POC [facility] Comment: mg/dL Medications, especially hydr oxyurea or supplements, such as ascorbate, can interfere with test results causing a falsely and significantly higher result than expected. If a problem is suspected with a patient's result, a sample should be sent to the laboratory for confirmatory testing. Method description: The i-ST AT is an analyzer used for in vitro quantification of various analytes in whole blood. The device uses a single disposable cartridge which contains microfabricated sensors, a calibration solution, fluidics system, and a waste chamber. Each test cartridge contains chemically sensitive biosensors on a silicon chip that are configured to perform specific tests. The microfabricated sensors measure analyte concentration by an electrochemical assay. POC eGFR-AA 70 >=60 POC [facility] Comment: mL/min/1.73 m2 Normal eGFR >= 60 mL/min/1.73 m2 The eGFR is calculated using the CKD-EPI equation. The eGFR declines with age. eGFR <60 mL/min/1.73 m2 is considered as "decreased" This equation should only be used for patients 18 and older. According to the National [facility]'s Kidney Disease Outcome Quality Initiative (KDOQI) classification and 2012 Kidney Disease Improving Global Outcomes (KDIGO) Clinical Practice Guideline, the stage of CKD should be categorized based on estimated GFR. Stage Description GFR mL/min/1.73 m2 1 Kidney damage with normal or high GFR >=90 2 Kidney damage with mild decrease in GFR 60-89 3a Mild to moderate decrease in GFR 45-59 3b Moderate to severe decrease in GFR 30-44 4 Severe decrease in GFR 15-29 5 Kidney failure <15 (or dialysis) POC eGFR-JOSELITO 60 >=60 POC [facility] Comment: mL/min/1.73 m2 Normal eGFR >= 60 mL/min/1.73 m2 The eGFR is calculated using the CKD-EPI equation. The eGFR declines with age. eGFR <60 mL/min/1.73 m2 is considered as "decreased" This equation should only be used for patients 18 and older. According to the [facility]'s Kidney Disease Outcome Quality Initiative (KDOQI) classification and 2012 Kidney Disease Improving Global Outcomes (KDIGO) Clinical Practice Guideline, the stage of CKD should be categorized based on estimated GFR. Stage Description GFR mL/min/1.73 m2 1 Kidney damage with normal or high GFR >=90 2 Kidney damage with mild decrease in GFR 60-89 3a Mild to moderate decrease in GFR 45-59 3b Moderate to severe decrease in GFR 30-44 4 Severe decrease in GFR 15-29 5 Kidney failure <15 (or dialysis) POC Clean Dev Yes POC [facility] Performing Lab Radiology OP CTRComment: POC [facility] Radiology OP CTR [facility] [place] [address]; [employer] Internship: Brooke Owens MD Specimen Blood Performing Organization Address City/State/ZIP Code Phon e Number POC [facility] OSI PET CT Skull to Mid Thigh (04/07/2021 1:24 PM CDT) Specimen Narrative Systemgenerated, Documentation - 1:24 PM JOINT [employer]OLLER Study acquired at another institution. For comparison only. No MD Licea originated interpretation requested or a vailable. Pathology Outside Interpretation (03/28/2021) Pathologist Sig nature Materials Received Accession#, Stained, Block, Unstained Collect ed Received LOLITA Gamez [id number], 6 SS, 0 BLOCKS, 0 USS 03/28/2021 021 Addendum 1 Additional material received on 05/25/2021, Outside 0 SS, 3 BLOCK, 0 USS, collected on 03/28/2021. MD [facility] Addendum electronically signed Deeper levels of block (21:[id number]) were examined. The original diagnosis remains unchanged. by Rigo Pritchard MD on 06/13/2021 at 2 :17 PM Diagnosis Outside ([id number], 6 SS): [facility] E lectronically signed by Rigo Gallardo Larynx, right arytenoid, biopsy (A): MD Macho on SQUAMOUS CELL CARCINOMA, suspicious for invasion 04/21/2021 at 4:09 PM Larynx, left arytenoid, biopsy (B): Squamous mucosa with chronic inflammation, negative fo r tumor Larynx, left false vocal cord, biopsy (C): Squamous mucosa and minor salivary gland, negative for tumor [facility]/N Public Health Educator(s) Dr. Marisela Hollingsworth [facility] has reviewed part A and concurs. Biomarker Block(s) T: A [facility] N: C Disclaimer "Some tests reported [facility] here may have been developed and performance characteristics determined by [facility]. These tests have not been specifically cleared or approved by the U.S. Food and Drug Administration. If applicable, controls were reviewed and showed appropriate reactivity." Specimen Tissue Performing Organization Address City/State/ZIP Code Phon e Number [facility] [place] [address] [address] OSI Chest (03/24/2021 1:24 PM CDT) Specimen Narrative Systemgenerated, Documentation - 021 1:24 PM JOINT TERMINAL ATT[employer] CONTROLLER Study acquired at another institution. For comparison only. No [facility] originated interpretation requested or a vailable. after 07/15/2020 Insurance Payer Benefit Plan Subscriber ID Effective Phone Address Typ e / Group Dates MEDICARE MEDICARE PART [id number] 2014-Prese [phone] [facility] Medicare A AND B nt 82 SOL[employer] [address] [place] [address] [employer] [id number] 2015-Prese [id number] [facility] [place]Y [place] [id number] [phone] [id number] (Work) Roland Lam Personal/Family Self 1950 [address] (Home) [place] [address] Advance Directives Code Status Date Activated Date Inactivated Comments Full Code 07/08/2021 4:32 PM 07/12/2021 11:02 PM Care Teams Counselor Aid Relationship Specialty Start Date End Date Olivia Coleman DO PCP - External Otolaryngology 04/13/21 [address] [place] [address] Slava Canseco, PCP - General Radiation Oncology 04/25/[address] [place] [id number] Yumi Desir MD Consulting Physician Head and Neck Medical 05/13/[address] [place] [address] [place] [address] Ene Polk MD Consulting Physician Head and Neck Surgery 05/13/[address] [place] [id number]
--- OUTSIDE RECORDS SUMMARY | 2021-07-15 13:57 | XMS REPORT | Continuity of Care Document ---
:1950 Author Organization [facility] t Address [address] [place]. [address] [place] [id number] Care Team Providers Name Role Phone [phone] Primary Care Physician Unavailable ZANDRA Attending Clinician Unavailable Arnaldo Bullard Attending Clinician Unavailable SYSTEM, NOT IN Attending Clinician Unavailable Gloria BOWENS, M Attending Clinician GERDA Attending Clinician Unavailable Gerda CRAWLEY Attending Clinician Laurie Maurer APN Attending Clinician Christina CRAWLEY Attending Clinician Maryse Knight MD Attending Clinician Zandra CRAWLEY Attending Clinician Wendi CRAWLEY Attending Clinician WENDI Attending Clinician Unavailable Leobardo BOWENS Attending Clinician Alok Ariza MD Attending Clinician ALOK ARIZA Attending Clinician Unavailable Eunice OSEGUERA Attending Clinician Leela BOWENS, S Attending Clinician Unavailable Nancy ANDRÉS, K Attending Clinician Kp RN, Thomas Rivera Attending Clinician Unavailable EUNICE Attending Clinician Unavailable Yajaira BOWENS Attending Clinician Unavailable Arnaldo Connolly Attending Clinician Unavailable Marisela Bonilla MD Attending Clinician Francisco BOWENS, C Attending Clinician Unavailable Kerline Arrington Attending Clinician PADMINI Attending Clinician Unavailable Jerel CRAWLEY Attending Clinician JEREL Attending Clinician Unavailable Katie BOWENS, Duran Attending Clinician Unavailable Savannah Polk PharmD Attending Clinician Samantha POLK Attending Clinician Unavailable Jam CRAWLEY, Samantha Attending Clinician Kathy CCC-CARRY OUT CLERK, E Attending Clinician Katty BOWENS, N Attending Clinician Unavailable Melvina CRAWLEY, Skinny Attending Clinician SHAGUFTA PRUITT Attending Clinician Unavailable Shagufta Pruitt MD Attending Clinician Piero CRAWLEY Attending Clinician Maine CRAWLEY Attending Clinician MAINE Attending Clinician Unavailable JANAE Attending Clinician Unavailable Galo BOWENS Attending Clinician Unavailable Jacob BOWENS, Elza Attending Clinician Unavailable Dulce Nguyen MD Attending Clinician Rico CCC-CARRY OUT CLERK, H Attending Clinician Unavailable Laurie Clemons Attending Clinician Unavailable Melita OSEGUERA Attending Clinician Denny GARCIA Attending Clinician Unavailable Travis R Attending Clinician Unavailable Zahra CRAWLEY PhD, Diana Attending Clinician BRAD Attending Clinician Unavailable MED Attending Clinician Unavailable Med CRUZ Attending Clinician Steven PhD, A Attending Clinician Josse CRAWLEY, Vadim Attending Clinician Darrick RN, A Attending Clinician Troy CRAWLEY, Mallika Attending Clinician Pb Munguia MD Attending Clinician Dawit CRAWLEY Attending Clinician MARYSE KNIGHT Admitting Clinician Unavailable Payers Payer Name Policy Type Policy Number Effective Date Expiration Date Skinny sanchez MEDICARE PART A [id number] 2014 AND B 00:00:00 SPARKLE [id number] 2015 00:00:00 Problems Condition Condition Condition Status Onset Resolution Last Treating Co mments Source Name Details Category Date Date Treatment Clinician Date Acute Acute Disease Active MD hypoxemic hypoxemic 2-06 Arthur rso respirator respirator 00:00: n y failure y failure 00 Aspiration Aspiration Disease Active M D pneumonia pneumonia 2-06 Arthur rso 00:00: n 00 Disorder Disorder Disease Active MD of fluid of fluid 2-04 Chucky o AND/OR AND/OR 00:00: n electrolyt electrolyt 00 e e Syncope Syncope Disease Active MD 2-04 Anderso 00:00: n 00 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 06-29 An derso brent brent 00:00: n malnutriti malnutriti 00 on on Swallowing Swallowing Disease Active M D painful painful 1-05 Anderso 00:00: n 00 Serum Serum Disease Active MD creatinine creatinine 1-05 An derso raised raised 00:00: n 00 Hypomagnes Hypomagnes Disease Active M D emia emia 1- Anderso 00:00: n 00 Bilateral Bilateral Disease Active MD tinnitus tinnitus -05 Chucky o 00:00: n 00 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 2-08 An derso lung lung 00:00: n 00 Nicotine Nicotine Disease Active 2020-06 MD dependence dependence 2-06 An derso 00:00: n 00 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 2020-06 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 ryngeal ryngeal 06-26 Anderso reflux reflux 00:00: n 00 Essential Essential Disease Recurre MD hypertensi hypertensi nce 5-15 An derso on on 00:00: n 00 Coronary Coronary Disease Recurre 2016- arterioscl arterioscl nce 5-09 An derso erosis erosis 00:00: n 00 Chronic Chronic Disease Recurre 2015- obstructiv obstructiv nce 1-23 An derso e e 00:00: n pulmonary pulmonary 00 disease disease 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 1-22 Chucky o mellitus mellitus 00:00: n without without 00 complicati complicati on on Thick Thick Disease Resolve 2021-06-29 2021-06-29 sputum sputum d 06-29 00:00:00 13:45:12 Chucky o 00:00: n 00 Diverticul Diverticul Disease Resolve 2021-06-29 2021-06-29 osis of osis of d 06-29 00:00:00 13:44:41 Arthur rso colon colon 00:00: n 00 History of History of Disease Resolve 2021-06-29 2021-06-29 polyp of polyp of d 06-29 00:00:00 13:44:44 An derso colon colon 00:00: n 00 Impotence Impotence Disease Resolve 2021-06-29 2021-06-29 MD of organic of organic d 06-29 00:00:00 13:44:48 Anderso origin origin 00:00: n 00 Intermitte Intermitte Disease Resolve 2021-06-29 2021-06-29 MD nt nt d 06-29 00:00:00 13:44:51 Chucky o claudicati claudicati 00:00: n on on 00 Iron Iron Disease Resolve 2021-06-29 2021-06-29 MD deficiency deficiency d 06-29 00:00:00 13:44:54 Anderso anemia anemia 00:00: n 00 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 06-29 00:00:00 13:44:57 Anderso emia emia 00:00: n 00 Obese Obese Disease Resolve 2021-06-29 2021-06-29 d 06-29 00:00:00 13:45:01 Chucky o 00:00: n 00 Peripheral Peripheral Disease Resolve 2021-06-29 2021-06-29 vascular vascular d 06-29 00:00:00 13:45:05 An derso angioplast angioplast 00:00: n y status y status 00 with with implants implants and grafts and grafts Seasonal Seasonal Disease Resolve 2021-06-29 2021-06-29 allergic allergic d 06-29 00:00:00 13:44:24 An derso rhinitis rhinitis 00:00: n 00 Tinnitus Tinnitus Disease Resolve 2021-06-29 2021-06-29 d 06-29 00:00:00 13:45:21 Chucky o 00:00: n 00 Tobacco Tobacco Disease Resolve 2020-062021-06-29 2021-06-29 use use d 06-26 00:00:00 13:45:24 Chucky o 00:00: n 00 Peripheral Peripheral Disease Resolve 2021-06-29 2021-06-29 arterial arterial d 10-10 00:00:00 13:44:30 An derso occlusive occlusive 00:00: n disease disease 00 Peripheral Peripheral Disease Resolve 2021-06-29 2021-06-29 vascular vascular d 10-10 00:00:00 13:44:34 An derso disease disease 00:00: n 00 Type 2 Type 2 Disease Resolve 2020-062021-06-01 2021-06-01 diabetes diabetes d 07-12 00:00:00 14:19:44 An derso mellitus mellitus 00:00: n in obese in obese 00 Allergies, Adverse Reactions, Alerts Allergy Allergy Status Severity Reaction(s) Onset Inactive Treating Comm ents Source Name Type Date Date Clinician Ultram Adverse Active Info Not [facility] Reaction [facility] Family History Family Member Diagnosis Comments Start Date Stop Date Source Natural mother Breast cancer MD Arthur matamoros Social History Social Habit Start Date Stop Date Quantity Comments Source History of tobacco 1974-05-09 Smokes tobacco MD Dorantes use 00:00:00 daily Exposure to Not sure MD Dorantes SARS-CoV-2 (event) Alcohol intake 2021-06-29 2021-06-29 Ex-drinker MD Jeanmarie patel 00:00:00 00:00:00 (finding) Tobacco Comment 2021-05-11 2021-05-11 working on MD Locke on 00:00:00 00:00:00 quitting, currently cut down to 1 ppd Cigarettes smoked 2021-04-26 2021-04-26 MD Arthur matamoros current (pack per 00:00:00 00:00:00 day) - Reported Cigarette 2021-04-26 2021-04-26 MD Dorantes pack-years 00:00:00 00:00:00 Tobacco use and 2021-04-26 2021-04-26 Smokeless tobacco MD Dorantes exposure 00:00:00 00:00:00 non-user Sex [birth year] M MD Locke on 00:00:00 00:00:00 Smoking Status Start Date Stop Date Source Smokes tobacco daily 2021-04-26 00:00:00 MD Arthur matamoros Medications Ordered Filled Start Stop Current Ordering Indication Dosage Frequency Signature Comments Components Source Medication Medication Date Date Medication? Clinician (SIG) Name Name amLODIPine Yes Essential 10mg Give 1 MD (NORVASC) 07-13 hypertensio tablet (10 Anderso 10 mg 00:00: n mg) per n tablet 00 NG-tube daily. folic acid Yes Folate 1mg Take 1 MD (FOLVITE) 1 07-13 deficiency tablet (1 Anderso mg tablet 00:00: mg) by n 00 mouth daily. thiamine Yes Hypophospha 100mg Take 1 MD (VITAMIN 07-13 temia tablet Anderso B-1) 100 mg 00:00: (100 mg) n tab tablet 00 by mouth daily. amoxicillin 2021- Aspiration 875mg Take 1 MD -clavulanat 07-13 pneumonia tablet Anderso e 00:00: 00:00 (875 mg) n (Augmentin) 00 :00 by mouth 875 mg-125 daily for mg per 2 doses. tablet albuterol Yes 2{puff} Inhale 2 M D (VENTOLIN 2-08 puffs by Chucky o HFA,PROAIR 21:02: mouth. n HFA) 90 21 mcg/puff inhaler budesonide- Yes 2{puff} Inhale 2 MD formoterol 2-08 puffs by Jorge so (SYMBICORT) 21:02: mouth n 160-4.5 21 twice mcg/actuati daily. on inhaler Patient usually does it once a day at night. tadalafil Yes 20mg Take 20 mg MD (CIALIS) 20 2-08 by mouth. And erso mg tablet 21:02: n 21 potassium-s Yes Hypophospha 1{packe Give 1 MD odium 2-08 temia t} packet per Anderso phosphates 00:00: NG-tube n (PHOS-NAK) 00 twice 280 mg-160 daily. mg-250 mg Mix powder contents of 1 packet of the powder in 2 and 1/2 ounces (75 mL) of water or juice. Stir until completely dissolved and drink the mixture right away after mixing. Do not save for later use. potassium Yes Hypokalemia 40meq Give 30 mL MD chloride 2-08 (40 mEq) Anderso (KAYCIEL) 00:00: per n 20 mEq/15 00 NG-tube mL solution daily. amoxicillin 2021- Yes Aspiration 875mg Take 1 MD -clavulanat 2-08 02-12 pneumonia tablet Anderso e 00:00: 05:59 (875 mg) n (Augmentin) 00 :00 by mouth 875 mg-125 twice mg per daily for tablet 5 doses. cloNIDine Yes Hypertensio .1mg Take 1 MD HCl 1-28 n tablet Anderso (Catapres) 00:00: (0.1 mg) n 0.1 mg 00 by mouth 3 tablet (three) times a day as needed for high blood pressure (Systolic blood pressure over 180, diastolic over 110). senna-docus Yes Constipatio 1{tbl} Take 1-3 MD ate 1-26 n, not tablets by Anderso (SENOKOT-S) 00:00: otherwise mouth n 8.6 mg-50 00 specified twice mg tablet daily. polyethylen Yes Constipatio 17g Take 17 g MD e glycol 1- n, not by mouth 3 And erso (GLYCOLAX) 00:00: otherwise (three) n 17 00 specified times a gram/dose day. powder glycopyrrol 2021- No Thick 1mg Take 1 MD ate 06-29 02-08 sputum tablet (1 Anderso (RobinuL) 1 00:00: 00:00 mg) by n mg tablet 00 :00 mouth 4 (four) times a day. rosuvastati Yes daily. MD n (CRESTOR) - Anderso 40 mg 00:00: n tablet 00 losartan 0 Yes daily. MD (COZAAR) - Anderso 100 mg 00:00: n tablet 00 cloNIDine 2021- No Hypertensio .1mg Take 1 MD HCl 06-22-28 n tablet Anderso (Catapres) 00:00: 00:00 (0.1 mg) n 0.1 mg 00 :00 by mouth 3 tablet (three) times a day as needed for high blood pressure (Systolic blood pressure over 180, diastolic over 110). lidocaine Yes Oral 5mL Swish and MD (XYLOCAINE) 1-12 mucositis swallow 5 Anderso 20 mg/mL 00:00: due to mL every 4 n (2%) 00 radiation (four) viscous hours as solution needed (throat pain). traMADol Yes Oral 50mg Take 1 MD (ULTRAM) 50 -12 mucositis tablet (50 Anderso mg tablet 00:00: due to mg) by n 00 radiation mouth every 4 (four) hours as needed for moderate pain or severe pain. magnesium Yes Hypomagnese 500mg Take 1 MD oxide 500 1-12 kaylen tablet Anderso mg tablet 00:00: (500 mg) n 00 by mouth daily. guaiFENesin Yes Thick 200mg Take 10 mL MD (ROBITUSSIN 1-10 sputum (200 mg) An derso ) 100 mg/5 00:00: by mouth 4 n mL syrup 00 (four) times a day. Nicoderm CQ Yes Nicotine Apply 2 MD 21 mg/24 hr 1-05 dependence patch to Anderso transdermal 00:00: skin and n patch 00 change patch daily as directed for tobacco cessation (alternate sites). gabapentin 2020-06 Yes Neuropathic 300mg Take 1 MD (Neurontin) 2-22 pain capsule Jorge so 300 mg 00:00: (300 mg) n capsule 00 by mouth 3 (three) times a day. triamcinolo 2020-06 Yes Radiation 1{appli Apply 1 MD ne 2-22 dermatitis cation} applicatio Anderso (KENALOG) 00:00: n n ointment 00 topically 0.1% to affected area(s) twice daily. ondansetron 2020-06- Yes Primary 8mg Take 1 MD (ZOFRAN) 8 2-14 12-15 squamous tablet (8 Anderso mg tablet 00:00: 05:59 cell mg) by n 00 :00 carcinoma mouth of larynx every 8 (eight) hours as needed for nausea or vomiting. prochlorper 2020-06- No Primary 10mg Take 1 MD azine 2-14 02-09 squamous tablet (10 And erso (Compazine) 00:00: 00:00 cell mg) by n 10 mg 00 :00 carcinoma mouth tablet of larynx every 6 (six) hours as needed for nausea or vomiting (if not controlled by Ondansetro n). Nicoderm CQ 2020-06- No Nicotine Apply 1 MD 21 mg/24 hr 2-06 01-05 dependence patch to Anderso transdermal 00:00: 00:00 skin and n patch 00 :00 change patch daily as directed for tobacco cessation (alternate sites). fluoride, 2020-06 Yes Accretion Apply to MD sodium, 2-03 on teeth teeth Anderso (PREVIDENT) 00:00: twice n 1.1 % 00 daily. dental [place] cream teeth with cream and spit out as directed. (Do not eat, drink or rinse for 30 minutes). metFORMIN 2020-06 Yes TAKE ONE MD (GLUCOPHAGE 1-16 (1) Anderso ) 500 mg 00:00: TABLET(S) n tablet 00 BY MOUTH TWICE A DAY. metoprolol 2020-06- No TAKE ONE MD tartrate 1-16 02-08 (1) Anderso (LOPRESSOR) 00:00: 00:00 TABLET(S) n 50 mg 00 :00 BY MOUTH tablet TWICE A DAY WITH FOOD. losartan 2020-06 No 100mg Take 100 MD (COZAAR) 50 1-13 01-26 mg by Chucky o mg tablet 00:00: 00:00 mouth n 00 :00 daily. Dexilant 60 2020-06 Yes TAKE ONE MD mg capsule 1-10 (1) Anderso 00:00: CAPSULE(S) n 00 BY MOUTH DAILY. montelukast 2020-06 Yes TAKE ONE MD (SINGULAIR) 1-04 (1) Anderso 10 mg 00:00: TABLET(S) n tablet 00 BY MOUTH ONCE A DAY. diazePAM 2020-06 No 5mg Take 5 mg MD (VALIUM) 5 0-26 02-08 by mouth Arthur rso mg tablet 00:00: 00:00 as needed. n 00 :00 cetirizine 2020-06 Yes TAKE ONE MD (ZyrTEC) 10 0-12 (1) Anderso mg tablet 00:00: TABLET(S) n 00 BY MOUTH ONCE A DAY. clopidogrel 2020-06 Yes TAKE ONE MD (PLAVIX) 75 0-12 (1) Anderso mg tablet 00:00: TABLET(S) n 00 BY MOUTH ONCE A DAY. simvastatin 2020-06 No TAKE ONE M D (ZOCOR) 10 0-06 01-26 (1) Anderso mg tablet 00:00: 00:00 TABLET(S) n 00 :00 BY MOUTH EVERY EVENING. fenofibrate Yes TAKE ONE MD nanocrystal 9-07 (1) Anderso lized 00:00: TABLET(S) n (TRICOR) 00 BY MOUTH 145 mg ONCE A tablet DAY. Metformin Metformin Yes Na Bullard [address] [facility] HCl HCl 7-02 with a [facility] Montelukast Montelukast Yes Na Bullard [address] [facility] Sodium Sodium 4-21 [facility] ferrous 2017-0 Yes MD sulfate 3-15 Anderso (iron) 325 00:00: n mg (65 mg 00 elemental iron per tablet) tablet aspirin 81 2009-06 Yes 81mg Take 81 mg M D mg EC 22 by mouth. Anderso tablet 00:00: n 00 Cialis Glorialis Yes Na Bulalrd [address] [facility] Metoprolol Metoprolol Yes Na Bullard [address] [facility] Tartrate Tartrate with food [facility] Dexilant Dexilant Yes Na Bullard TAKE ONE [facility] (1) [facility] - CAP[facility]LE(S[facility] BY MOUTH l ONCE A Outpati DAY. ent Clinics Plavix Plavix Yes Na Bullard [address] [facility] Plavix Plavix Yes Na Bullard [address] [facility] Ventolin Ventolin Yes Na Bullard [address] [facility] HFA HFA needed [facility] Nicotine Nicotine Yes Na Bullard [address] [facility] Step 1 Step 1 skin [facility] Cetirizine Cetirizine Yes Na Bullard [address] [facility] HCl HCl [facility] Cetirizine Cetirizine Yes Na Bullard TAKE ONE [facility] HCl HCl (1) [facility] - TABLET(S) [facility] BY MOUTH l ONCE A Outpati DAY. ent Clinics Simvastatin Simvastatin Yes Na Bullard [address] [facility] in the [facility] - evening [facility] Nystatin Nystatin Yes Na Bullard [address] [facility] Fenofibrate Fenofibrate Yes Na Bullard [address] [facility] with food [facility] Symbicort Symbicort Yes Na Bullard [address] [facility] Flonase Flonase Yes Na Bullard [address] [facility] each [facility] - nostril [facility] Immunizations Ordered Immunization Filled Immunization Date Status Commen ts Source Name Name Moderna SARS-CoV-2 2021-04-16 Completed MD And erson Booster Vaccination 00:00:00 Moderna SARS-CoV-2 2020-08-07 Completed MD And erson Vaccination 00:00:00 Moderna SARS-CoV-2 2020-07-10 Completed MD And erson Vaccination 00:00:00 Vital Signs Vital Name Observation Time Observation Value Comments Source Systolic blood pressure 2021-07-12 22:09:39 149 mm[Hg] MD Dorantes Diastolic blood pressure 2021-07-12 22:09:39 62 mm[Hg] MD Dorantes Heart rate 2021-07-12 22:09:39 95 /min MD Jorge bundy Body temperature 2021-07-12 22:09:39 36.61 Yocasta MD Nirmal larson Respiratory rate 2021-07-12 22:09:39 20 /min MD Nirmal larson Oxygen saturation in 2021-07-12 22:09:39 96 /min MD Dorantes Arterial blood by Pulse oximetry Body height 2021-07-09 03:40:36 165.7 cm MD Jorge bundy Body weight 2021-07-09 03:40:36 68.5 kg MD Jorge bundy BMI 2021-07-09 03:40:36 24.95 kg/m2 MD Jorge bundy Procedures Procedure Date / Time Performed Performing Clinician [facility] e POC GLUCOSE SCREEN 2021-07-12 23:42:00 Lacy Adame MD on BASIC METABOLIC PANEL, 2021-07-12 21:09:00 Kwaku Yo MD CALCIUM TOTAL MAGNESIUM LEVEL 2021-07-12 21:09:00 Kwaku Yo MD Arthur rson PHOSPHORUS LEVEL 2021-07-12 21:09:00 Kwaku Yo MD And erson GLUCOSE LEVEL 2021-07-12 21:09:00 MD Chucky De Paz on Ino BLOOD UREA NITROGEN 2021-07-12 21:09:00 MD Yue De Paz ELECTROLYTE PANEL 2021-07-12 21:09:00 MD Zandra Arthur rson Ino SERUM CREATININE 2021-07-12 21:09:00 MD Jorge De Paz Ino .GLOMERULAR FILTRATION RATE 2021-07-12 21:09:00 MD Jose E Mart CALCIUM LEVEL TOTAL 2021-07-12 21:09:00 MD Yue De Paz POC GLUCOSE SCREEN 2021-07-12 19:45:00 Lacy Adame MD on POC GLUCOSE SCREEN 2021-07-12 15:40:00 Lacy Adame MD on COMPLETE BLOOD COUNT W/ 2021-07-12 07:56:00 Madelin Knight MD DIFFERENTIAL Maryse BASIC METABOLIC PANEL, 2021-07-12 07:56:00 Kwaku Yo MD CALCIUM TOTAL MAGNESIUM LEVEL 2021-07-12 07:56:00 Kwaku Yo MD Arthur rson PHOSPHORUS LEVEL 2021-07-12 07:56:00 Kwaku Yo MD And erson GLUCOSE LEVEL 2021-07-12 07:56:00 MD Chucky De Paz on Ino BLOOD UREA NITROGEN 2021-07-12 07:56:00 MD Yue De Paz Ino ELECTROLYTE PANEL 2021-07-12 07:56:00 MD Zandra Arthur rson Ino SERUM CREATININE 2021-07-12 07:56:00 MD Zandra Jorge son Ino .GLOMERULAR FILTRATION RATE 2021-07-12 07:56:00 MD Jose E Mart Ino CALCIUM LEVEL TOTAL 2021-07-12 07:56:00 MD Yue De Paz Ino Results CBC 2021-07-12 07:56:00 Madelin Knight MD Maryse MANUAL DIFFERENTIAL 2021-07-12 07:56:00 Madelin Knight MD POC GLUCOSE SCREEN 2021-07-12 04:09:00 Lacy Adame MD on POC GLUCOSE SCREEN 2021-07-12 02:52:00 Lacy Adame MD on POC GLUCOSE SCREEN 2021-07-11 22:27:00 Lacy Adame MD on ECHOCARDIOGRAM 2D COMPLETE 2021-07-11 22:16:42 Kwaku Yo MD BASIC METABOLIC PANEL, 2021-07-11 20:33:00 Kwaku Yo MD CALCIUM TOTAL MAGNESIUM LEVEL 2021-07-11 20:33:00 Kwaku Yo MD Arthur rson PHOSPHORUS LEVEL 2021-07-11 20:33:00 Kwaku Yo MD And erson GLUCOSE LEVEL 2021-07-11 20:33:00 MD Zandra Chucky on Ino BLOOD UREA NITROGEN 2021-07-11 20:33:00 MD Yue De Paz Ino ELECTROLYTE PANEL 2021-07-11 20:33:00 MD Zandra Arthur rson Ino SERUM CREATININE 2021-07-11 20:33:00 MD Jorge De Paz .GLOMERULAR FILTRATION RATE 2021-07-11 20:33:00 MD Jose E Mart CALCIUM LEVEL TOTAL 2021-07-11 20:33:00 MD Yue De Paz POC GLUCOSE SCREEN 2021-07-11 18:33:00 Lacy Adame MD on POC GLUCOSE SCREEN 2021-07-11 14:52:00 Lacy Adame MD on BASIC METABOLIC PANEL, 2021-07-11 08:00:00 Kwaku Yo MD CALCIUM TOTAL MAGNESIUM LEVEL 2021-07-11 08:00:00 Kwaku Yo MD Arthur rson PHOSPHORUS LEVEL 2021-07-11 08:00:00 Kwaku Yo MD And erson GLUCOSE LEVEL 2021-07-11 08:00:00 MD Chucky De Paz on Ino BLOOD UREA NITROGEN 2021-07-11 08:00:00 MD Yue De Paz Ino ELECTROLYTE PANEL 2021-07-11 08:00:00 MD Zandra Arthur rson Ino SERUM CREATININE 2021-07-11 08:00:00 MD Jorge De Paz .GLOMERULAR FILTRATION RATE 2021-07-11 08:00:00 MD Jose E Mart CALCIUM LEVEL TOTAL 2021-07-11 08:00:00 MD Yue De Paz COMPLETE BLOOD COUNT W/ 2021-07-11 07:46:00 Madelin Knight MD DIFFERENTIAL Maryse Results CBC 2021-07-11 07:46:00 Madelin Knight MD Maryse MANUAL DIFFERENTIAL 2021-07-11 07:46:00 Madelin Knight MD Arthur rsdeya Maryse POC GLUCOSE SCREEN 2021-07-11 03:45:00 MD Zandra And ersdeya Ino POC GLUCOSE SCREEN 2021-07-11 01:36:00 MD Zandra And naz Mckinnon EKG, 12-LEAD (PORTABLE) 2021-07-11 00:00:00 Kwaku Yo MD POC GLUCOSE SCREEN 2021-07-10 22:26:00 MD Zandra And ersdeya Mckinnon BASIC METABOLIC PANEL, 2021-07-10 21:02:00 Kwaku Yo MD CALCIUM TOTAL MAGNESIUM LEVEL 2021-07-10 21:02:00 Kwaku Yo MD Arthur rson PHOSPHORUS LEVEL 2021-07-10 21:02:00 Kwaku Yo MD And erson GLUCOSE LEVEL 2021-07-10 21:02:00 MD Zandra Chucky deya Ino BLOOD UREA NITROGEN 2021-07-10 21:02:00 MD Zandra An derson Ino ELECTROLYTE PANEL 2021-07-10 21:02:00 MD Zandra Arthur rsdeya Ino SERUM CREATININE 2021-07-10 21:02:00 MD Zandra Jorgedebbie Mckinnon .GLOMERULAR FILTRATION RATE 2021-07-10 21:02:00 MD Jose E Mart CALCIUM LEVEL TOTAL 2021-07-10 21:02:00 MD Zandra An juan Mckinnon POC GLUCOSE SCREEN 2021-07-10 17:40:00 MD Zandra And ersdeya Ino COMPLETE BLOOD COUNT W/ 2021-07-10 12:09:00 Madelin Knight MD DIFFERENTIAL Maryse BASIC METABOLIC PANEL, 2021-07-10 12:09:00 Kwaku Yo MD CALCIUM TOTAL MAGNESIUM LEVEL 2021-07-10 12:09:00 Kwaku Yo MD Arthur rson PHOSPHORUS LEVEL 2021-07-10 12:09:00 Kwaku Yo MD And erson TROPONIN T 2021-07-10 12:09:00 Kwaku Yo MD Arthur rson GLUCOSE LEVEL 2021-07-10 12:09:00 MD Zandra Chucky on Ino BLOOD UREA NITROGEN 2021-07-10 12:09:00 MD Yue De Paz Ino ELECTROLYTE PANEL 2021-07-10 12:09:00 MD Zandra Arthur rson Ino SERUM CREATININE 2021-07-10 12:09:00 MD Jorge De Paz .GLOMERULAR FILTRATION RATE 2021-07-10 12:09:00 MD Jose E Mart CALCIUM LEVEL TOTAL 2021-07-10 12:09:00 MD Yue De Paz Results CBC 2021-07-10 12:09:00 Madelin Knight MD Maryse MANUAL DIFFERENTIAL 2021-07-10 12:09:00 Madelin Knight MD Arthurelroy matamoros Maryse POC GLUCOSE SCREEN 2021-07-10 05:11:00 MD Zandra And ersdeya Ino BASIC METABOLIC PANEL, 2021-07-10 04:35:00 Kwaku Yo MD CALCIUM IONIZED MAGNESIUM LEVEL 2021-07-10 04:35:00 Kwaku Yo MD Arthur rson PHOSPHORUS LEVEL 2021-07-10 04:35:00 Kwaku oY MD And erson TROPONIN T 2021-07-10 04:35:00 Kwaku Yo MD Arthur rson GLUCOSE LEVEL 2021-07-10 04:35:00 MD Zandra Chucky on Ino ELECTROLYTE PANEL 2021-07-10 04:35:00 MD Zandra Arthur rson Ino SERUM CREATININE 2021-07-10 04:35:00 MD Jorge De Paz .GLOMERULAR FILTRATION RATE 2021-07-10 04:35:00 MD Jose E Mart CALCIUM IONIZED, VENOUS 2021-07-10 04:35:00 Samantha De Paz BLOOD UREA NITROGEN 2021-07-10 04:35:00 MD Yue De Paz LOWER RESPIRATORY CULTURE W/ 2021-07-09 23:33:00 Kaushal Proctor MD GRAM STAIN POC GLUCOSE SCREEN 2021-07-09 22:30:00 MD Zandra And erson Ino VASCULAR ACCESS ULTRASOUND 2021-07-09 21:00:36 MD Jose E De Paz BASIC METABOLIC PANEL, 2021-07-09 19:45:00 Kwaku Yo MD CALCIUM TOTAL MAGNESIUM LEVEL 2021-07-09 19:45:00 Kwaku Yo MD Arthur rson PHOSPHORUS LEVEL 2021-07-09 19:45:00 Kwaku Yo MD And erson GLUCOSE LEVEL 2021-07-09 19:45:00 MD Zandra Chucky on Ino BLOOD UREA NITROGEN 2021-07-09 19:45:00 MD Yue De Paz ELECTROLYTE PANEL 2021-07-09 19:45:00 MD Zandra Arthur rson Ino SERUM CREATININE 2021-07-09 19:45:00 MD Zandra Jorge gregor [place] .GLOMERULAR FILTRATION RATE 2021-07-09 19:45:00 MD Jose E Mart CALCIUM LEVEL TOTAL 2021-07-09 19:45:00 MD Yue De Paz OSCILLATORY PEP 2021-07-09 19:21:45 MD Zandra Chucky on Ino POC GLUCOSE SCREEN 2021-07-09 18:42:00 MD Zandra And erson Ino POC GLUCOSE SCREEN 2021-07-09 14:56:00 MD Zandra And erson Ino TROPONIN T 2021-07-09 12:28:00 Kaushal Proctor MD Andreginaldo n BASIC METABOLIC PANEL, 2021-07-09 12:28:00 Madelin Knight MD CALCIUM TOTAL Maryse COMPLETE BLOOD COUNT W/ 2021-07-09 12:28:00 Madelin Knight MD DIFFERENTIAL Maryse MAGNESIUM LEVEL 2021-07-09 12:28:00 Madelin Knight MD PHOSPHORUS LEVEL 2021-07-09 12:28:00 Madelin Knight MD Andreginaldo amanda Serra GLUCOSE LEVEL 2021-07-09 12:28:00 Madelin Knight MD BLOOD UREA NITROGEN 2021-07-09 12:28:00 Madelin Knight MD Arthurelroy Serra ELECTROLYTE PANEL 2021-07-09 12:28:00 Madelin Knight MD on Maryse SERUM CREATININE 2021-07-09 12:28:00 Madelin Knight MDo amanda Serra .GLOMERULAR FILTRATION RATE 2021-07-09 12:28:00 Madelin Knight MD CALCIUM LEVEL TOTAL 2021-07-09 12:28:00 Madelin Knight MD Arthur rsdeya Serra Results CBC 2021-07-09 12:28:00 Madelin Knight MD MANUAL DIFFERENTIAL 2021-07-09 12:28:00 Madelin Knight MD Arthur rson Maryse POC GLUCOSE SCREEN 2021-07-09 04:08:00 Madelin Knight MD POC GLUCOSE SCREEN 2021-07-08 23:49:00 Madelin Knight MD Jorge son Maryse STREPTOCOCCUS PNEUMONIAE 2021-07-08 23:17:00 Kaushal Proctor URINE ANTIGEN LEGIONELLA URINE ANTIGEN 2021-07-08 23:17:00 Kaushal Proctor LEGIONELLA URINE ANTIGEN PATH 2021-07-08 23:17:00 Arianna Knight sa, MD STREPTOCOCCAL URINE ANTIGEN 2021-07-08 23:17:00 Madelin Knight MD PATH REVIEW Maryse GENERAL LABORATORY ADD ON 2021-07-08 21:35:00 Josette Vasquez MD TEST MRSA SCREENING CULTURE 2021-07-08 21:23:[address] CHEST PULMONARY EMBOLISM W 2021-07-08 19:38:55 Koffi, Donny Dorantes CONTRAST XR ABDOMEN AP 2021-07-08 19:31:37 Christina, Josette Dorantes POC CHEM 8 2021-07-08 18:14:00 Christina, Josette Dorantes POC CRITICAL 2021-07-08 18:14:00 Christina, Josette Dorantes COMPLETE BLOOD COUNT W/ 2021-07-08 18:13:00 Koffi, Olegario Dorantes DIFFERENTIAL COMPREHENSIVE METABOLIC PANEL 2021-07-08 18:13:00 Rain, Donny Dorantes MAGNESIUM LEVEL 2021-07-08 18:13:00 Rain, Olegario Gamez MD Arthur rson PHOSPHORUS LEVEL 2021-07-08 18:13:00 Rain, Olegario Gamez MD And erson PROTHROMBIN TIME 2021-07-08 18:13:00 Koffi, Olegario Gamez MD And erson APTT 2021-07-08 18:13:00 Koffi, Olegario Gamez MD Arthur rson D DIMER 2021-07-08 18:13:00 Rain, Olegario Gamez MD Arthur rson CARDIAC PANEL 2021-07-08 18:13:00 Koffi, Olegario Gamez MD Arthur rson Results CBC 2021-07-08 18:13:00 Rain, Olegario Gamez MD Arthur rson MANUAL DIFFERENTIAL 2021-07-08 18:13:00 Olegario Rain MD GLUCOSE LEVEL 2021-07-08 18:13:00 Koffi, Olegario Gamez MD Arthur rson BLOOD UREA NITROGEN 2021-07-08 18:13:00 Olegario Rain MD ELECTROLYTE PANEL 2021-07-08 18:13:00 Koffi, Olegario Turner [facility] SERUM CREATININE 2021-07-08 18:13:00 Koffi, Olegario Gamez MD And erson .GLOMERULAR FILTRATION RATE 2021-07-08 18:13:00 Jhonny Rain MD CALCIUM LEVEL TOTAL 2021-07-08 18:13:00 Olegario Rain MD ALBUMIN LEVEL 2021-07-08 18:13:00 Olegario Rain MD Arthur rson ALKALINE PHOSPHATASE 2021-07-08 18:13:00 Olegario Rain MD ALANINE AMINOTRANSFERASE 2021-07-08 18:13:00 Olegario Rain MD ASPARTATE AMINOTRANSFERASE 2021-07-08 18:13:00 Olegario Rain MD TOTAL PROTEIN 2021-07-08 18:13:00 Olegario Rain MD Arthur rson FRACTIONATED BILIRUBIN 2021-07-08 18:13:00 Olegario Rain MD PROCALCITONIN 2021-07-08 18:13:00 Olegario Rain MD Arthur rson XR CHEST 1 VW 2021-07-08 17:38:45 Olegario Rain MD Arthur rson COVID-19 (SARS-COV-2) 2021-07-08 17:23:00 Olegario Rain ASYMPTOMATIC-LT CT HEAD WO CONTRAST 2021-07-08 17:05:55 Olegario Rain MD POC GLUCOSE SCREEN 2021-07-08 16:47:00 Josette Vasquez MD on EKG, 12-LEAD (PORTABLE) 2021-07-08 00:00:00 Olegario Rain MD COMPREHENSIVE METABOLIC PANEL 2021-07-04 17:10:00 Yumi Lorenz MD COMPLETE BLOOD COUNT W/ 2021-07-04 17:10:00 Yumi Lorenz MD nderson DIFFERENTIAL MAGNESIUM LEVEL 2021-07-04 17:10:00 Yumi Lorenz MD PHOSPHORUS LEVEL 2021-07-04 17:10:00 Yumi Lorenz MD GLUCOSE LEVEL 2021-07-04 17:10:00 Yumi Lorenz MD BLOOD UREA NITROGEN 2021-07-04 17:10:00 Yumi Lorenz MD son ELECTROLYTE PANEL 2021-07-04 17:10:00 Yumi Lorenz MD SERUM CREATININE 2021-07-04 17:10:00 Yumi Lorenz MD .GLOMERULAR FILTRATION RATE 2021-07-04 17:10:00 Yumi Lorenz MD CALCIUM LEVEL TOTAL 2021-07-04 17:10:00 Yumi Lorenz MD ALBUMIN LEVEL 2021-07-04 17:10:00 Yumi Lorenz MD ALKALINE PHOSPHATASE 2021-07-04 17:10:00 Yumi Lorenz MD ALANINE AMINOTRANSFERASE 2021-07-04 17:10:00 Yumi Lorenz MD ASPARTATE AMINOTRANSFERASE 2021-07-04 17:10:00 Yumi Lorenz TOTAL PROTEIN 2021-07-04 17:10:00 Yumi Lorenz MD FRACTIONATED BILIRUBIN 2021-07-04 17:10:00 Yumi Lorenz MD Results CBC 2021-07-04 17:10:00 Yumi Lorenz MD MANUAL DIFFERENTIAL 2021-07-04 17:10:00 Yumi Lorenzer gregor COMPREHENSIVE METABOLIC PANEL 2021-06-27 14:00:00 Yumi Lorenz MD COMPLETE BLOOD COUNT W/ 2021-06-27 14:00:00 Yumi Lorenz MD ndersdeya DIFFERENTIAL MAGNESIUM LEVEL 2021-06-27 14:00:00 Yumi Lorenz MD PHOSPHORUS LEVEL 2021-06-27 14:00:00 Yumi Lorenz MD GLUCOSE LEVEL 2021-06-27 14:00:00 Yumi Lorenz MD BLOOD UREA NITROGEN 2021-06-27 14:00:00 Yumi Lorenz MD ELECTROLYTE PANEL 2021-06-27 14:00:00 Yumi Lorenz MD SERUM CREATININE 2021-06-27 14:00:00 Yumi Lorenz MD .GLOMERULAR FILTRATION RATE 2021-06-27 14:00:00 Yumi Lorenz MD CALCIUM LEVEL TOTAL 2021-06-27 14:00:00 Yumi Lorenz MD ALBUMIN LEVEL 2021-06-27 14:00:00 Yumi Lorenz MD ALKALINE PHOSPHATASE 2021-06-27 14:00:00 Yumi Lorenz MD ALANINE AMINOTRANSFERASE 2021-06-27 14:00:00 Yumi Lorenz MD ASPARTATE AMINOTRANSFERASE 2021-06-27 14:00:00 Yumi Lorenz TOTAL PROTEIN 2021-06-27 14:00:00 Yumi Lorenz MD FRACTIONATED BILIRUBIN 2021-06-27 14:00:00 Yumi Lorenz MDson Results CBC 2021-06-27 14:00:00 Yumi Lorenz MD MANUAL DIFFERENTIAL 2021-06-27 14:00:00 Yumi Lorenz MD Jorge son TROPONIN T 2021-06-22 21:45:00 Nichole Beltrán MD COVID-19 (SARS-COV-2) 2021-06-22 17:54:00 Susan Ugalde MD ASYMPTOMATIC-LT COMPLETE BLOOD COUNT W/ 2021-06-22 17:54:00 Susan Ugalde MD DIFFERENTIAL COMPREHENSIVE METABOLIC PANEL 2021-06-22 17:54:00 Susan Ugalde MD MAGNESIUM LEVEL 2021-06-22 17:54:00 Susan Ugalde MDson PHOSPHORUS LEVEL 2021-06-22 17:54:00 Susan Ugalde MDrson NT PRO BNP 2021-06-22 17:54:00 Susan Ugalde MDson CREATINE KINASE 2021-06-22 17:54:00 Susan Ugalde MDson CKMB 2021-06-22 17:54:00 Susan Ugalde MD Results CBC 2021-06-22 17:54:00 Susan Ugalde MD MANUAL DIFFERENTIAL 2021-06-22 17:54:00 Susan Ugalde GLUCOSE LEVEL 2021-06-22 17:54:00 Susan Ugalde MD BLOOD UREA NITROGEN 2021-06-22 17:54:00 Susan Ugalde ELECTROLYTE PANEL 2021-06-22 17:54:00 Susan Ugalde MD SERUM CREATININE 2021-06-22 17:54:00 Susan Ugalde MDrson .GLOMERULAR FILTRATION RATE 2021-06-22 17:54:00 Samantha Ugalde MD CALCIUM LEVEL TOTAL 2021-06-22 17:54:00 Susan Ugalde ALBUMIN LEVEL 2021-06-22 17:54:00 Susan Ugalde MD ALKALINE PHOSPHATASE 2021-06-22 17:54:00 Susan Ugalde MD ALANINE AMINOTRANSFERASE 2021-06-22 17:54:00 Elodia Ugalde MD ASPARTATE AMINOTRANSFERASE 2021-06-22 17:54:00 Lilia Ugalde MD TOTAL PROTEIN 2021-06-22 17:54:00 Susan Ugalde MD FRACTIONATED BILIRUBIN 2021-06-22 17:54:00 Susan Ugalde MD EKG, 12-LEAD (PORTABLE) 2021-06-22 00:00:[address] HEAD/NECK SIMULATION WO 2021-06-21 15:00:13 Alexandra Dawson CONTRAST (RO) COMPREHENSIVE METABOLIC PANEL 2021-06-20 14:07:00 Yumi Lorenz MD COMPLETE BLOOD COUNT W/ 2021-06-20 14:07:00 Yumi Lorenz MDrsdeya DIFFERENTIAL MAGNESIUM LEVEL 2021-06-20 14:07:00 Yumi Lorenz MD PHOSPHORUS LEVEL 2021-06-20 14:07:00 Yumi Lorenz MD GLUCOSE LEVEL 2021-06-20 14:07:00 Yumi Lorenz MD BLOOD UREA NITROGEN 2021-06-20 14:07:00 Yumi Lorenz MD ELECTROLYTE PANEL 2021-06-20 14:07:00 Yumi Lornez MD SERUM CREATININE 2021-06-20 14:07:00 Yumi Lorenz MD .GLOMERULAR FILTRATION RATE 2021-06-20 14:07:00 Yumi Lorenz MD CALCIUM LEVEL TOTAL 2021-06-20 14:07:00 Yumi Lorenz MD ALBUMIN LEVEL 2021-06-20 14:07:00 Yumi Lorenz MD ALKALINE PHOSPHATASE 2021-06-20 14:07:00 Yumi Lorenz MD rsdeya ALANINE AMINOTRANSFERASE 2021-06-20 14:07:00 Yumi Lorenz MD ASPARTATE AMINOTRANSFERASE 2021-06-20 14:07:00 Yumi Lorenz TOTAL PROTEIN 2021-06-20 14:07:00 Yumi Lorenz MD FRACTIONATED BILIRUBIN 2021-06-20 14:07:00 Yumi Lorenz MDson Results CBC 2021-06-20 14:07:00 Yumi Lorenz MD MANUAL DIFFERENTIAL 2021-06-20 14:07:00 Yumi Lorenz MD Jorge gregor COMPREHENSIVE METABOLIC PANEL 2021-06-13 13:00:00 Yumi Lorenz MD COMPLETE BLOOD COUNT W/ 2021-06-13 13:00:00 Yumi Lorenz MDrson DIFFERENTIAL MAGNESIUM LEVEL 2021-06-13 13:00:00 Yumi Lorenz MD PHOSPHORUS LEVEL 2021-06-13 13:00:00 Yumi Lorenz MD GLUCOSE LEVEL 2021-06-13 13:00:00 Yumi Lorenz MD BLOOD UREA NITROGEN 2021-06-13 13:00:00 Yumi Lorenz MD Jorge gregor ELECTROLYTE PANEL 2021-06-13 13:00:00 Yumi Lorenz MD SERUM CREATININE 2021-06-13 13:00:00 Yumi Lorenz MD .GLOMERULAR FILTRATION RATE 2021-06-13 13:00:00 Yumi Lorenz MD CALCIUM LEVEL TOTAL 2021-06-13 13:00:00 Yumi Lorenzer gregor ALBUMIN LEVEL 2021-06-13 13:00:00 Yumi Lorenz MD ALKALINE PHOSPHATASE 2021-06-13 13:00:00 Yumi Lorenz MD rsdeya ALANINE AMINOTRANSFERASE 2021-06-13 13:00:00 Yumi Lorenz MD ASPARTATE AMINOTRANSFERASE 2021-06-13 13:00:00 Yumi Lorenz TOTAL PROTEIN 2021-06-13 13:00:00 Yumi Lorenz MD FRACTIONATED BILIRUBIN 2021-06-13 13:00:00 Yumi Lorenz MD Results CBC 2021-06-13 13:00:00 Yumi Lorenz MD MANUAL DIFFERENTIAL 2021-06-13 13:00:00 Yumi Lorenz MD Jorgedebbie bundy ALKALINE PHOSPHATASE 2021-06-06 12:58:00 Yumi Lorenz MD rson ALANINE AMINOTRANSFERASE 2021-06-06 12:58:00 Yumi Lorenz MD ASPARTATE AMINOTRANSFERASE 2021-06-06 12:58:00 Yumi Lorenz TOTAL PROTEIN 2021-06-06 12:58:00 Yumi Lorenz MD FRACTIONATED BILIRUBIN 2021-06-06 12:58:00 Yumi Lorenz MD Results CBC 2021-06-06 12:58:00 Yumi Lorenz MD MANUAL DIFFERENTIAL 2021-06-06 12:58:00 Yumi Lorenz MD Jorge son COMPREHENSIVE METABOLIC PANEL 2021-06-06 12:58:00 Yumi Lorenz MD COMPLETE BLOOD COUNT W/ 2021-06-06 12:58:00 Yumi Lorenz MD nderson DIFFERENTIAL MAGNESIUM LEVEL 2021-06-06 12:58:00 Yumi Lorenz MD PHOSPHORUS LEVEL 2021-06-06 12:58:00 Yumi Lorenz MD GLUCOSE LEVEL 2021-06-06 12:58:00 Yumi Lorenz MD BLOOD UREA NITROGEN 2021-06-06 12:58:00 Yumi Lorenz MD Jorge son ELECTROLYTE PANEL 2021-06-06 12:58:00 Yumi Lorenz MD SERUM CREATININE 2021-06-06 12:58:00 Yumi Lorenz MD .GLOMERULAR FILTRATION RATE 2021-06-06 12:58:00 Yumi Lorenz MD CALCIUM LEVEL TOTAL 2021-06-06 12:58:00 Yumi Lorenz MD Jorge son ALBUMIN LEVEL 2021-06-06 12:58:00 Yumi Lorenz MD COMPREHENSIVE METABOLIC PANEL 2021-05-30 14:28:00 Yumi Lorenz MD COMPLETE BLOOD COUNT W/ 2021-05-30 14:28:00 Yumi Lorenz MDrson DIFFERENTIAL MAGNESIUM LEVEL 2021-05-30 14:28:00 Yumi Lorenz MD PHOSPHORUS LEVEL 2021-05-30 14:28:00 Yumi Lorenz MD GLUCOSE LEVEL 2021-05-30 14:28:00 Yumi Lorenz MD BLOOD UREA NITROGEN 2021-05-30 14:28:00 Yumi Lorenz MD Jorge son ELECTROLYTE PANEL 2021-05-30 14:28:00 Yumi Lorenz MDo amanda SERUM CREATININE 2021-05-30 14:28:00 Yumi Lorenz MD .GLOMERULAR FILTRATION RATE 2021-05-30 14:28:00 Yumi Lorenz MD CALCIUM LEVEL TOTAL 2021-05-30 14:28:00 Yumi Lorenz MD Jorge son ALBUMIN LEVEL 2021-05-30 14:28:00 Yumi Lorenz MD ALKALINE PHOSPHATASE 2021-05-30 14:28:00 Yumi Lorenz MD ALANINE AMINOTRANSFERASE 2021-05-30 14:28:00 Yumi Lorenz MD ASPARTATE AMINOTRANSFERASE 2021-05-30 14:28:00 Yumi Lorenz TOTAL PROTEIN 2021-05-30 14:28:00 Yumi Lorenz MD FRACTIONATED BILIRUBIN 2021-05-30 14:28:00 Yumi Lorenz MDson Results CBC 2021-05-30 14:28:00 Yumi Lorenz MD MANUAL DIFFERENTIAL 2021-05-30 14:28:00 Yumi Lorenz MD COMPREHENSIVE METABOLIC PANEL 2021-05-23 14:42:00 Yumi Lorenz MD COMPLETE BLOOD COUNT W/ 2021-05-23 14:42:00 Yumi Lorenz MD nderson DIFFERENTIAL MAGNESIUM LEVEL 2021-05-23 14:42:00 Yumi Lorenz MD PHOSPHORUS LEVEL 2021-05-23 14:42:00 Yumi Lorenz MD GLUCOSE LEVEL 2021-05-23 14:42:00 Yumi Lorenz MD BLOOD UREA NITROGEN 2021-05-23 14:42:00 Yumi Lorenz MD ELECTROLYTE PANEL 2021-05-23 14:42:00 Yumi Lorenz MD SERUM CREATININE 2021-05-23 14:42:00 Yumi Lorenz MD .GLOMERULAR FILTRATION RATE 2021-05-23 14:42:00 Yumi Lorenz MD CALCIUM LEVEL TOTAL 2021-05-23 14:42:00 Yumi Lorenz MD ALBUMIN LEVEL 2021-05-23 14:42:00 Yumi Lorenz MD ALKALINE PHOSPHATASE 2021-05-23 14:42:00 Yumi Lorenz MD ALANINE AMINOTRANSFERASE 2021-05-23 14:42:00 Yumi Lorenz MD ASPARTATE AMINOTRANSFERASE 2021-05-23 14:42:00 Yumi Lorenz TOTAL PROTEIN 2021-05-23 14:42:00 Yumi Lorenz MD FRACTIONATED BILIRUBIN 2021-05-23 14:42:00 Yumi Lorenz MD Results CBC 2021-05-23 14:42:00 Yumi Lorenz MD MANUAL DIFFERENTIAL 2021-05-23 14:42:00 Yumi Lorenz MD FL MODIFIED BARIUM SWALLOW W 2021-05-18 15:57:01 Alexandra Dawson MD SPEECH CT HEAD/NECK SIMULATION WO 2021-05-11 16:46:32 Alexandra Dawson CONTRAST (RO) COVID-19 (SARS-COV-2) PCR 2021-05-11 15:05:00 Alexandra Dawson MD ASYMPTOMATIC ORTHOPANTOGRAM 2021-05-06 16:53:13 Diixe Loaiza MD Fierro CARRY OUT CLERK 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 2021-05-06 15:58:10 Alexandra Dawson MD ELECTROLYTE PANEL 2021-05-04 17:10:00 Yumi Lorenz MD BLOOD UREA NITROGEN 2021-05-04 17:10:00 Yumi Lorenz MD Jorge bundy SERUM CREATININE 2021-05-04 17:10:00 Yumi Lorenz MD GLUCOSE, RANDOM 2021-05-04 17:10:00 Yumi Lorenz MD MAGNESIUM LEVEL 2021-05-04 17:10:00 Yumi Lorenz MD PHOSPHORUS LEVEL 2021-05-04 17:10:00 Yumi Lorenz MD CALCIUM LEVEL TOTAL 2021-05-04 17:10:00 Yumi Lorenz MD Jorge bundy HEPATIC FUNCTION PANEL 2021-05-04 17:10:00 Yumi Lorenz MD VITAMIN D 25 HYDROXY LEVEL 2021-05-04 17:10:00 Yumi Lorenz SERUM CREATININE 2021-05-04 17:10:00 Yumi Lorenz MD .GLOMERULAR FILTRATION RATE 2021-05-04 17:10:00 Yumi Lorenz MD ALBUMIN LEVEL 2021-05-04 17:10:00 Yumi Lorenz MD ALKALINE PHOSPHATASE 2021-05-04 17:10:00 Yumi Lorenz MD ALANINE AMINOTRANSFERASE 2021-05-04 17:10:00 Yumi Lorenz MD ASPARTATE AMINOTRANSFERASE 2021-05-04 17:10:00 Yumi Lorenz TOTAL PROTEIN 2021-05-04 17:10:00 Yumi Lorenz MD FRACTIONATED BILIRUBIN 2021-05-04 17:10:00 Yumi Lorenz MD, MD COVID-19 (SARS-COV-2) PCR 2021-05-04 16:23:00 JamEne MD ASYMPTOMATIC COMPLETE BLOOD COUNT W/ 2021-05-03 14:26:00 Alexandra Dawson MD nderson DIFFERENTIAL COMPREHENSIVE METABOLIC PANEL 2021-05-03 14:26:00 Alexandra Dawson MD THYROID STIMULATING HORMONE 2021-05-03 14:26:00 Alexandra Dawson MD HEPATITIS C VIRUS ANTIBODY 2021-05-03 14:26:00 Alexandra Dawson FREE THYROXINE 2021-05-03 14:26:00 Alexandra Dawson MD Results CBC 2021-05-03 14:26:00 Alexandra Dawson MD MANUAL DIFFERENTIAL 2021-05-03 14:26:00 Alexandra Dawson MD GLUCOSE LEVEL 2021-05-03 14:26:00 Alexandra Dawson MD BLOOD UREA NITROGEN 2021-05-03 14:26:00 Alexandra Dawson MD ELECTROLYTE PANEL 2021-05-03 14:26:00 Alexandra Dawson MD SERUM CREATININE 2021-05-03 14:26:00 Alexandra Dawson MD .GLOMERULAR FILTRATION RATE 2021-05-03 14:26:00 Alexandra Dawson MD CALCIUM LEVEL TOTAL 2021-05-03 14:26:00 Alexandra Dawson MD ALBUMIN LEVEL 2021-05-03 14:26:00 Alexandra Dawson MD ALKALINE PHOSPHATASE 2021-05-03 14:26:00 Alexandra Dawson MD rson ALANINE AMINOTRANSFERASE 2021-05-03 14:26:00 Alexandra Dawson MD ASPARTATE AMINOTRANSFERASE 2021-05-03 14:26:00 Alexandra Dawson TOTAL PROTEIN 2021-05-03 14:26:00 Alexandra Dawson MD FRACTIONATED BILIRUBIN 2021-05-03 14:26:00 Alexandra Dawson MD derson TMP HCVAB INTERP 2021-05-03 14:26:[address] SOFT TISSUE NECK W 2021-05-03 13:27:[address] CHEST W CONTRAST 2021-05-03 13:27:54 Alexandra Dawson MD POC CREATININE 2021-05-03 12:56:00 Alexandra Dawson MD OSI PET CT SKULL TO MID THIGH 2021-04-07 18:24:00 Olivia Coleman MD PATHOLOGY OUTSIDE 2021-03-28 00:00:00 Korina Pastor MD INTERPRETATION OSI CHEST 2021-03-24 18:24:00 Olivia Coleman MD Plan of Care Planned Activity Planned Date Details Comments Source Future Scheduled Test 2021-05-14 00:00:00 COVID-19 Vaccination (3 MD Dorantes - Moderna risk 4-dose series) [code = COVID-19 Vaccination (3 - Moderna risk 4-dose series)] Encounters Start End Encounter Admission Attending Care Care Encounter Source Date/Time Date/Time Type Type Clinicians Facility Department ID 2021-07-09 Inpatient DOROTHY HOBBS- LOILTA MCHUGH [id number] 15:00:36 Jeanmarie ASKEW 2021-06-29 Outpatient Bullard, Na [facility] [id number] [facility] [address] 11:54:04 [id number] 2021-06-29 Outpatient Bullard, Na [facility] [id number] [facility] [address] 11:30:38 [id number] [facility] 2021-06-29 Outpatient Bullard, Na [facility] [id number] [facility] [address] 11:28:27 [id number] [facility] 2021-06-29 Outpatient Bullard, Na [facility] [id number] [facility] [address] 11:24:06 [id number] [facility] 2021-04-13 Outpatient LOLITA CHILD MDA [id number] 19:44:15 CASSANDRA patel 2021-07-13 2021-07-13 Outpatient DOROTHY LORENZ MDA MDA [id number] 13:44:18 13:44:18 YUMI patel 2021-07-08 2021-07-12 Inpatient TANNER ADAME [facility] [id number] 10:33:00 21:00:00 LACY patel 2021-07-09 2021-07-09 Inpatient DOROTHY MPTANYAAndrade LOLITA MCHUGH [id number] 14:37:39 15:13:17 Chucky ASKEW 2021-07-08 2021-07-08 Outpatient DARYL LAU MDA MDA [id number] MD 09:19:33 10:32:00 Chucky o n 2021-07-08 2021-07-08 Outpatient DARYL LAU MDA MDA [id number] MD 08:15:00 09:18:00 Chucky o n 2021-07-07 2021-07-07 Outpatient DARYL LAU MDA MDA [id number] MD 20:19:41 23:59:00 Chucky o n 2021-07-07 2021-07-07 Outpatient DARYL LAU MDA MDA [id number] MD 10:00:00 20:18:00 Chucky o n 2021-07-07 2021-07-07 Outpatient DARYL LAU MDA MDA [id number] MD 09:45:00 09:59:00 Chucky o n 2021-07-06 2021-07-06 Outpatient DARYL LAU MDA MDA [id number] MD 11:21:54 23:59:00 Chucky o n 2021-07-06 2021-07-06 Outpatient DARYL LAU MDA MDA [id number] MD 13:41:27 22:23:25 Chucky o n 2021-07-06 2021-07-06 Outpatient DOROTHY DAWSON MDA MDA [id number] MD 15:25:17 15:25:17 ALEXANDRA Scanloners o n 2021-07-06 2021-07-06 Outpatient DARYL LAU MDA MDA [id number] MD 13:22:42 14:24:35 Chucky o n 2021-07-06 2021-07-06 Outpatient DARYL LAU MDA MDA [id number] MD 09:27:40 11:20:00 Chucky o n 2021-07-06 2021-07-06 Outpatient DARYL LAU MDA MDA [id number] MD 08:45:00 09:26:00 Chucky o n 2021-07-05 2021-07-05 Outpatient DARYL LAU MDA MDA [id number] MD 09:07:24 23:59:00 Chucky o n 2021-07-04 2021-07-04 Outpatient DOROTHY LORENZ MDA MDA [id number] 12:15:00 23:59:00 YUMI patel 2021-07-04 2021-07-04 Outpatient DARYL LAU MDA MDA [id number] 09:23:55 12:14:00 Chucky patel 2021-07-04 2021-07-04 Outpatient DOROTHY LORENZ MDA MDA [id number] 09:15:00 09:22:00 YUMI patel 2021-07-01 2021-07-01 Outpatient DARYL LAU MDA MDA [id number] 09:26:55 23:59:00 Chucky patel 2021-07-01 2021-07-01 Outpatient DOROTHY DAWSON, MDA MDA [id number] 09:26:30 23:59:00 ALEXANDRA patel 2021-06-30 2021-06-30 Outpatient DARYL LAU MDA MDA [id number] 10:12:14 23:59:00 Chucky patel 2021-06-29 2021-06-29 Outpatient DARYL LAU MDA MDA [id number] 09:21:07 23:59:00 Chucky o amanda 2021-06-29 2021-06-29 Outpatient DARYL LAU MDA MDA [id number] MD 16:04:56 16:04:56 Chucky patel 2021-06-29 2021-06-29 Outpatient DOROTHY LORENZ MDA MDA [id number] 12:39:09 12:39:09 YUMI patel 2021-06-29 2021-06-29 Outpatient DARYL LAU MDA MDA [id number] 09:20:50 09:20:50 Chucky o amanda 2021-06-28 2021-06-28 Outpatient DARYL LAU MDA MDA [id number] 13:24:55 23:59:00 Chucky o amanda 2021-06-27 2021-06-27 Outpatient DARYL LAU MDA MDA [id number] 08:51:26 23:59:00 Chucky o amanda 2021-06-27 2021-06-27 Outpatient DOROTHY LORENZ MDA MDA [id number] 10:10:27 10:10:27 YUMI patel 2021-06-27 2021-06-27 Outpatient DOROTHY LORENZ MDA MDA [id number] 07:30:00 08:50:00 YUMI Locke o amanda 2021-06-24 2021-06-24 Outpatient DARYL LAU MDA MDA [id number] 12:42:26 23:59:00 Chuckyreginald patel 2021-06-24 2021-06-24 Outpatient DARYL LAU MDA MDA [id number] 10:45:00 12:41:00 Chuckyreginald patel 2021-06-24 2021-06-24 [facility]patient [facility] [id number] [place] 00:00:00 00:00:00 PAT [facility] 2021-06-23 2021-06-23 Outpatient DARYL LAU MDA MDA [id number] 10:41:38 23:59:00 Chuckyreginald patel 2021-06-23 2021-06-23 Outpatient DARYL LAU MDA MDA [id number] 10:30:12 10:40:00 Chuckyreginald patle 2021-06-22 2021-06-22 Emergency ER JEREL, MDA Emergency [id number] 11:11:00 20:15:00 NICHOLE patel 2021-06-22 2021-06-22 Outpatient DARYL LAU MDA MDA [id number] 09:50:00 11:10:00 Chcuky patel 2021-06-21 2021-06-21 Outpatient DARYL LAU MDA MDA [id number] 08:00:52 23:59:00 Chucky o amanda 2021-06-21 2021-06-21 Outpatient DOROTHY DAWSON, MDA MDA [id number] 07:58:46 07:59:00 ALEXANDRA patel 2021-06-20 2021-06-20 Outpatient DOROTHY LORENZ, MDA MDA [id number] 08:14:09 23:59:00 YUMI patel 2021-06-20 2021-06-20 Outpatient DOROTHY LORENZ MDA MDA [id number] 07:58:43 08:13:00 YUMI patel 2021-06-17 2021-06-17 Outpatient DARYL LAU MDA MDA [id number] MD 11:45:00 23:59:00 Chucky o amanda 2021-06-16 2021-06-16 Outpatient DARYL LAU MDA MDA [id number] MD 11:42:10 23:59:00 Chucky o maanda 2021-06-16 2021-06-16 Outpatient DARYL LAU MDA MDA [id number] MD 16:11:01 16:11:01 Chucky o amanda 2021-06-15 2021-06-15 Outpatient DOROTHY POLK MDA MDA [id number] MD 10:37:55 23:59:00 ENE Locke o amanda 2021-06-15 2021-06-15 Outpatient DARYL LAU MDA MDA [id number] MD 11:27:15 14:11:36 Chucky o amanda 2021-06-15 2021-06-15 Outpatient DARYL LAU MDA MDA [id number] 08:16:55 10:36:00 Chucky o amanda 2021-06-15 2021-06-15 Outpatient DARYL LAU MDA MDA [id number] 07:19:30 08:15:00 Chucky o amanda 2021-06-14 2021-06-14 Outpatient DARYL LAU MDA MDA [id number] MD 20:31:13 23:59:00 Chucky o amanda 2021-06-14 2021-06-14 Outpatient DARYL LAU MDA MDA [id number] 08:01:28 20:30:00 Chucky o amanda 2021-06-13 2021-06-13 Outpatient DOROTHY LORENZ MDA MDA [id number] MD 09:15:00 23:59:00 YUMI Locke o amanda 2021-06-13 2021-06-13 Outpatient DARYL LAU MDA MDA [id number] MD 08:20:58 09:14:00 Chucky o amanda 2021-06-13 2021-06-13 Outpatient DARYL LAU MDA MDA [id number] 08:08:42 08:19:00 Chucky o amanda 2021-06-13 2021-06-13 Outpatient DOROTHY LORENZ, MDA MDA [id number] MD 06:30:00 08:07:00 YUMI patel 2021-06-10 2021-06-10 Outpatient DARYL LAU MDA MDA [id number] MD 09:48:20 23:59:00 Chucky patel 2021-06-09 2021-06-09 Outpatient DARYL LAU MDA MDA [id number] 08:15:00 23:59:00 Chucky o amanda 2021-06-08 2021-06-08 Outpatient DARYL LAU MDA MDA [id number] MD 20:55:35 23:59:00 Chucky o amanda 2021-06-08 2021-06-08 Outpatient DARYL LAU MDA MDA [id number] MD 13:28:31 20:54:00 Chucky o amanda 2021-06-08 2021-06-08 Outpatient DARYL LAU MDA MDA [id number] 16:41:38 16:41:38 Chucky o amanda 2021-06-08 2021-06-08 Outpatient DOROTHY DAWSON, MDA MDA [id number] MD 10:37:41 13:27:00 ALEXANDRA patel 2021-06-08 2021-06-08 Outpatient DOROTHY LORENZ, MDA MDA [id number] MD 09:30:54 09:30:54 YUMI patel 2021-06-07 2021-06-07 Outpatient DARYL LAU MDA MDA [id number] 11:48:52 23:59:00 Chucky o amanda 2021-06-06 2021-06-06 Outpatient DARYL LAU MDA MDA [id number] MD 13:38:56 23:59:00 Chucky o amanda 2021-06-06 2021-06-06 Outpatient DOROTHY LORENZ, MDA MDA [id number] MD 07:00:00 13:37:00 YUMI patel 2021-06-06 2021-06-06 Outpatient DOROTHY LORENZ, MDA MDA [id number] MD 06:30:00 06:59:00 YUMI patel 2021-06-02 2021-06-02 Outpatient DARYL LAU MDA MDA [id number] 06:16:14 23:59:00 Chucky o amanda 2021-06-01 2021-06-01 Outpatient MARIA DEL ROSARIO RIVAS MDA MDA [id number] MD 10:37:44 23:59:00 Chucky o amanda 2021-06-01 2021-06-01 Outpatient DOROTHY RESTREPO MDA MDA [id number] MD 13:15:31 14:00:28 CLINT patel 2021-06-01 2021-06-01 Outpatient DARYL LAU MDA MDA [id number] 06:18:07 10:36:00 Chucky o amanda 2021-05-31 2021-05-31 Outpatient DARYL LAU MDA MDA [id number] 14:02:11 23:59:00 Chucky o amanda 2021-05-31 2021-05-31 Outpatient DARYL LAU MDA MDA [id number] 09:00:07 20:53:44 Chuckyreginald patel 2021-05-31 2021-05-31 Outpatient DOROTHY CARDOSO, MDA MDA [id number] 15:31:35 15:31:35 ANNA Chucky o amanda 2021-05-31 2021-05-31 Outpatient DARYL LAU MDA MDA [id number] 05:46:59 14:01:00 Chucky patel 2021-05-30 2021-05-30 Outpatient DARYL LAU MDA MDA [id number] 06:55:13 23:59:00 Chucky patel 2021-05-30 2021-05-30 Outpatient DOROTHY LORENZ, MDA MDA [id number] 11:10:48 11:10:48 YUMI patel 2021-05-30 2021-05-30 Outpatient DOROTHY LORENZ, MDA MDA [id number] 06:15:00 06:54:00 YUMI patel 2021-05-25 2021-05-25 Outpatient DARYL LAU MDA MDA [id number] 08:51:12 23:59:00 Chucky patel 2021-05-25 2021-05-25 Outpatient DOROTHY LORENZ MDA MDA [id number] 10:29:47 11:57:52 YUMI patel 2021-05-25 2021-05-25 Outpatient DARYL LAU MDA MDA [id number] 08:22:09 08:50:00 Chucky nic patel 2021-05-24 2021-05-24 Outpatient DARYL LAU MDA MDA [id number] 14:48:05 23:59:00 Chucky nic patel 2021-05-23 2021-05-23 Outpatient DARYL LAU MDA MDA [id number] 15:22:13 23:59:00 Chucky o amanda 2021-05-23 2021-05-23 Outpatient DOROTHY LORENZ, MDA MDA [id number] 08:29:28 15:21:00 YUMI patel 2021-05-23 2021-05-23 Outpatient DOROTHY LORENZ, MDA MDA [id number] 08:49:56 14:05:15 YUMI patel 2021-05-23 2021-05-23 Outpatient DARYL LAU MDA MDA [id number] 06:28:35 08:28:00 Chucky o amanda 2021-05-22 2021-05-22 Outpatient DARYL LAU MDA MDA [id number] 14:50:33 23:59:00 Chucky o amanda 2021-05-19 2021-05-19 Outpatient DARYL LAU MDA MDA [id number] 11:03:15 13:40:55 Chucky o amanda 2021-05-18 2021-05-18 Outpatient DOROTHY DAWSON, MDA MDA [id number] 09:16:35 23:59:00 ALEXANDRA patel 2021-05-18 2021-05-18 Outpatient DARYL LAU MDA MDA [id number] 15:19:23 15:19:23 Chucky o amanda 2021-05-16 2021-05-16 Outpatient DARYL LAU MDA MDA [id number] 08:30:00 23:59:00 Chucky o amanda 2021-05-11 2021-05-11 Outpatient DARYL LAU MDA MDA [id number] 12:11:49 23:59:00 Chucky o amanda 2021-05-112021-05-11 Outpatient DOROTHY LORENZ, MDA MDA [id number] 13:49:12 16:28:29 YUMI patel 2021-05-11 2021-05-11 Outpatient DOROTHY DAWSON, MDA MDA [id number] 08:59:55 15:39:22 ALEXANDRA patel 2021-05-11 2021-05-11 Outpatient DOROTHY DAWSON, MDA MDA [id number] 10:00:00 12:10:00 ALEXANDRA patel 2021-05-11 2021-05-11 Outpatient DOROTHY DAWSON, MDA MDA [id number] 09:15:00 09:59:00 ALEXANDRA patel 2021-05-09 2021-05-09 Outpatient DOROTHY SALINAS, MDA MDA [id number] 11:38:34 11:38:34 LEONID patel 2021-05-09 2021-05-09 Outpatient DOROTHY DALEYNDARYL MDA MDA [id number] 11:38:24 11:38:24 Chucky patel 2021-05-06 2021-05-06 Outpatient DOROTHY AHUMADA, MDA MDA [id number] 10:53:13 23:59:00 ARIANE Locke o amanda 2021-05-06 2021-05-06 Outpatient DOROTHY AHUMADA, MDA MDA [id number] MD 10:44:38 10:52:00 ARIANE Locke o amanda 2021-05-06 2021-05-06 Outpatient DOROTHY DAWSON, MDA MDA [id number] 08:30:00 10:43:00 ALEXANDRA patel 2021-05-06 2021-05-06 Outpatient DOROTHY POLK, MDA MDA [id number] MD 07:45:03 08:29:00 ENE Locke o amanda 2021-05-04 2021-05-04 Outpatient DARYL LAU MDA MDA [id number] 10:40:00 23:59:00 Chucky patel 2021-05-04 2021-05-04 Outpatient DOROTHY DAWSON, MDA MDA [id number] MD 10:16:12 12:58:49 ALEXANDRA patel 2021-05-04 2021-05-04 Outpatient DOROTHY LORENZ, MDA MDA [id number] 09:45:00 10:39:00 YUMI Locke o amanda 2021-05-03 2021-05-03 Outpatient EL EUNICE, MDA MDA [id number] MD 08:06:41 23:59:00 ALEXANDRA patel 2021-05-03 2021-05-03 Outpatient DOROTHY DAWSON, MDA MDA [id number] MD 06:25:36 06:25:36 ALEXANDRA Locke o amanda 2021-05-02 2021-05-02 Outpatient EL MDA MDA [id number] MD 13:03:47 13:06:58 Chucky o amanda 2021-04-22 2021-04-22 Outpatient EL MDA MDA [id number] MD 11:48:16 11:48:16 Chucky o amanda 2021-04-22 2021-04-22 Outpatient EL MDA MDA [id number] MD 11:48:13 11:48:13 Chucky o amanda 2021-04-22 2021-04-22 Outpatient EL MDA MDA [id number] MD 11:48:12 11:48:12 Chucky o amanda 2021-04-22 2021-04-22 Outpatient EL MDA MDA [id number] MD 11:48:10 11:48:10 Chucky o n 2021-04-22 2021-04-22 Outpatient EL MDA MDA [id number] MD 11:48:08 11:48:08 Chucky o amanda 2021-04-22 2021-04-22 Outpatient EL MDA MDA [id number] MD 11:48:06 11:48:06 Chucky o amanda 2021-03-18 2021-03-18 Outpatient [facility] [id number] [facility] 2021-02-15 2021-02-15 Outpatient [facility] [id number] [facility] 2021-01-11 2021-01-11 Outpatient [facility] [id number] [facility] 2020-10-26 2020-10-26 Outpatient [facility] [id number] [address] [place] [address] 00:00:00 00:00:00 PAT [address] 2020-04-07 2020-04-07 [facility] [id number] [facility] 2020-03-15 2020-03-15 [facility] [id number] [facility] 2020-02-11 2020-02-11 [facility] [id number] [facility] 09:19:00 09:19:00 t Specialty/U My[facility]rology [facility] l Clinic Outpati ent Clinics 2019-12-23 2019-12-23 [facility] [id number] [facility] 13:20:00 13:20:00 t [employer] - Drive [facility] l Medicine Outpati ent Clinics 2019-12-12 2019-12-12 [facility] [id number] 11:00:00 11:00:00 t [employer] s - Drive [facility] Medicine Outpati ent Clinics 2019-12-04 2019-12-04 [facility] [id number] 08:44:00 08:44:00 t [employer] - Drive [facility] l Medicine Outpati ent Clinics 2019-11-21 2019-11-21 [facility] [id number] 16:47:00 16:47:00 t Specialty/U Myah kes - Specialty [facility]Urology Clinic l Clinic Outpati ent Clinics 2019-11-14 2019-11-14 [facility] [id number] 08:00:00 08:00:00 t [employer] - Drive [facility] l Medicine Outpati ent Clinics 2019-11-13 2019-11-13 [facility] [id number] 14:40:00 14:40:00 t [employer] - Drive [facility] l Medicine Outpati ent Clinics 2019-10-24 2019-10-24 Outpatient PADMINI [facility] [id number] [address] [place] [address] 00:00:00 00:00:00 PAT [address] 2019-10-22 2019-10-22 Outpatient Chayo Domingot [id number] 14:12:00 14:12:00 t Specialty/U Myah diaz - Specialty rology Mem[facility]Urology Clinic l Clinic Outpati ent Clinics 2019-10-14 2019-10-14 Outpatient PADMINI Luarie [facility] [id number] [place] 00:00:00 00:00:00 PAT [address] Results Test Description Test Time Test Comments Results Result Comments Source POC Glucose Screen 2021-07-12 23:53:17 Test Item Value Reference Range Interpretation Comme nts POC Glucose (test code = 111 mg/dL 70-99 H Cap illary blood samples, e.g. 19497-9) obtained by ivan golden, may have inaccurate results in patients with d ecreased peripheral bloo d flow. Method description: Al l results are measured using Electrochemistry test methodolog y. The glucose in the sample m ixes with the reagents on the test strip. The reaction produc es an electric current. The am ount of current produced is pro portional to the glucose concent ration in the blood. PO Sample Type (test code = Capillary 9554) Performing Lab (test code = [facility] [address]) MD [facility], [address] [place] [address]; Lab Dire ctor: Loida Chavez MD Lab Interpretation (test code Abnormal = 39159-0) MD DorantesGlomerular Filtration [id number] 22:08:41 Test Item Value Reference Range Interpretation Comments eGFR-AA (test code 97 See_Comment Normal eG FR: >= 60 = 8062) mL/min/1.73 m2N ote: The eGFR is calculated u sing the CKD-EPI equatio n. The eGFR declines with a ge. eGFR <60 mL/min/1.73 m2 is considered as "decreased". This equation should only be used for patients 18 and older. According to e National Kidney [employer] on's Kidney Disease Outcome Quality Initiative (KDO QI) classification and 2012 Kidney Disease Improving Global Outcomes (KDIGO) Clinical Practi ce Guideline, the stage of CK D should be categorized bas ed on estimated GFR. Stage Description GFR mL/min/1.73 m21 Normal or high GFR >=902 Mildly decrease d GFR 60-893a M ildly to moderately decr eased GFR 45-593b Moderat deborah to severely decrea sed GFR 30-444 Severely decreased GFR 15-295 Kid prakash failure <15 [Automa mary message] The system [employer] generated this result tra nsmitted reference range : >=60 mL/min/1.73 sq. m. The reference range was not used to interpret th is result as normal/abnormal . eGFR-JOSELITO (test code 84 See_Comment Normal e GFR: >= 60 = 8063) mL/min/1.73 m2N ote: The eGFR is calculated u sing the CKD-EPI equatio n. The eGFR declines with a ge. eGFR <60 mL/min/1.73 m2 is considered as "decreased". This equation should only be used for patients 18 and older. According to th e National Kidney Found[employer] on's Kidney Disease Outcome Quality Initiative (KDO QI) classification and 2012 Kidney Disease Improving Global Outcomes (KDIGO) Clinical Practi ce Guideline, the stage of CK D should be categorized bas ed on estimated GFR. Stage Description GFR mL/min/1.73 m21 Normal or high GFR >=902 Mildly decrease d GFR 60-893a M ildly to moderately decr eased GFR 45-593b Moderat deborah to severely decrea sed GFR 30-444 Severely decreased GFR 15-295 Kid prakash failure <15 [Automa mary message] The system [employer] generated this result tra nsmitted reference range : >=60 mL/min/1.73 sq. m. The reference range was not used to interpret th is result as normal/abnormal . MD DorantesMagnesium [id number] 22:08:40 Test Item Value Reference Range Interpretation Comments Magnesium (test code = 6359) 1.2 mg/dL 1.6-2.6 L Lab Interpretation (test code = Abnormal 53424-0) MD Dorantes.Serum Minknfkead4208-50-48 22:08:39 Test Item Value Reference Range Interpretation Comments Creatinine (test code = 5399) 0.91 mg/dL 0.67-1.17 MD DorantesPhosphorus [id number] 22:08:38 Test Item Value Reference Range Interpretation Comments Phosphorus (test code = 6817) 3.4 mg/dL 2.5-4.5 MD DorantesXnbysaplRVC5517-07-80 22:08:37 Test Item Value Reference Range Interpretation Comments BUN (test code = 5055) 12 mg/dL 6-23 Jose ECalcium Avtdk6130-21-04 22:08:36 Test Item Value Reference Range Interpretation Comments Calcium Lvl (test code = 5258) 8.4 mg/dL 8.4-10.2 Jose EElectrolyte [id number] 22:08:35 Test Item Value Reference Range Interpretation Comments Sodium Lvl (test code = 132 See_Comment L [Au tomated message] 5109) The system [employer] generated this result transmitted ref erence range: 136 - 14 5 mEq/L. The refe rence range was not u sed to interpret this result as normal/abnor mal. Potassium Lvl (test code 4.1 See_Comment [A utomated message] = 9751) The system [employer] generated this result transmitted ref erence range: 3.5 - 5. 1 mEq/L. The refe rence range was not u sed to interpret this result as normal/abnor mal. Chloride (test code = 95 See_Comment L [Auto mated message] 7321) The system [employer] generated this result transmitted ref erence range: 98 - 107 mEq/L. The refe rence range was not u sed to interpret this result as normal/abnor mal. CO2 (test code = 5227) 27 See_Comment [Aut omated message] The system [employer] generated this result transmitted ref erence range: 22 - 29 mEq/L. The reference r jackie was not used to interpret this result as normal/abnor mal. Anion Gap (test code = 10 See_Comment [Aut omated message] 6127) The system [employer] generated this result transmitted ref erence range: 4 - 14 m Eq/L. The reference r jackie was not used to interpret this result as normal/abnor mal. Lab Interpretation (test Abnormal code = 30769-9) MD DorantesGlucose [id number] 22:08:34 Test Item Value Reference Range Interpretation Comments Glucose Level (test code 189 mg/dL 70-99 H Eff ective 12/29/15, = 5699) the glucose reference inter vals have been updat ed based on [place] an Diabetes Associ ation guidelines (Standards of Medical Care in Diabetes 2016. Diabetes Care 2 016; 39: S13-S22).Fa sting blood glucose:Normal: 70-99 mg/dLImpa ired fasting glucose (increased risk for diabetes or pre-diabetes): 100-125 mg/dLDiabetes mellitus: >/=1 26 mg/dL Random bl ood glucose:Normal: 70-199 mg/dLNot e: Random glucose >100 mg/dL is associ ated with increased risk for diabetes Lab Interpretation (test Abnormal code = 91783-7) MD DorantesUgnslyrsMsxpdpdkmxxf4652-03-08 08:40:28 Test Item Value Reference Range Interpretation Comments Neutrophil % (test code = 62.7 % 42.0-66.0 02939-1) Lymphocyte % (test code = 20.6 % 24.0-44.0 L 737-7) Monocyte % (test code = 12.8 % 2.0-7.0 H 744-3) Eosinophil % (test code = 1.7 % 1.0-4.0 713-8) Basophil % (test code = 1.1 % 0.0-1.0 H 707-0) IGRE % (test code = 1.1 % 0.0-0.4 H IGRE % c ount 04340-1) includes Metamyelocytes, Myelocytes, and Promyelocytes. Neutrophil Abs (test code 1.13 K/uL 1.70-7.30 L = 753-4) Lymphocyte Abs (test code 0.37 K/uL 1.00-4.80 L = 732-8) Monocyte Abs (test code = 0.23 K/uL 0.08-0.70 743-5) Eosinophil Abs (test code 0.03 K/uL 0.04-0.40 L = 712-0) Basophil Abs (test code = 0.02 K/uL 0.00-0.10 705-4) IG Abs (test code = 0.02 K/uL 0.00-0.04 64121-4) Lab Interpretation (test Abnormal code = 84820-6) MD Dorantes.[id number] 08:40:26 Test Item Value Reference Range Interpretation Comments WBC (test code = 1.8 K/uL 4.0-11.0 L 6690-2) RBC (test code = 789-8) 2.93 See_Comment L [Au tomated message] The system [facility] generated this result transmitted ref erence range: 4.50 - 6 .00 M/uL. The refer ence range was not u sed to interpret this result as normal/abnor mal. Hgb (test code = 718-7) 8.3 See_Comment L [Au tomated message] The system [facility] generated this result transmitted ref erence range: 14.0 - 1 8.0 gm/dL. The refe rence range was not u sed to interpret this result as normal/abnor mal. Hct (test code = 24.8 % 40.0-54.0 L 4544-3) MPV (test code = 787-2) 9.4 fL 4.0-10.4 MCH (test code = 785-6) 28.3 pg 27.0-31.0 MCHC (test code = 33.5 See_Comment [Automate d message] 786-4) The system [facility] generated this result transmitted ref erence range: 31.0 - 3 6.0 gm/dL. The refe rence range was not u sed to interpret this result as normal/abnor mal. RDW-SD (test code = 47.9 fL 35.1-46.3 H 36205-4) RDW-CV (test code = 16.4 % 12.0-15.5 H 788-0) Platelet count (test 198 K/uL 140-440 code = 777-3) INRBC (test code = 0.6 % See_Comment H The INRBC (instrument 5974) NRBC) value ref lects the enumeration of nucleated red b lood cells contained in a 200uL sampleof whole blood analyzed by the instrument. Thi s value maydiffer from the NRBC value repo rted in a manual differential,wh ich is based on a 100 cell differential. [Automated mess age] The system [employer] generated this result transmitted ref erence range: <=0.0. T he reference range was not used to int erpret this result as normal/abnormal . Lab Interpretation Abnormal (test code = 74998-1) MD Edgar Respiratory Culture w/Gram Rzqpf5910-17-12 01:40:46 Test Item Value Reference Range Interpretation Comments Final Report (test code Normal site shayna A = 8488) present.Generally of low significance.Correlate with clinical data and culture history. Path Review (test code The results have been A = 8492) reviewed and electronically signed by Pathologist:BERTA BRADY MD #[id number] Gram Stain Report (test Moderate WBC's A code = 648-6) seenEpithelial cells seenModerate Gram Positive CocciModerate Gram Variable Madan Lab Interpretation Abnormal (test code = 32069-3) MD DorantesStreptococcal Urine Antigen Path Cvdpqk9087-99-20 07:11:21 Streptococcal Urine Antigen Path ReviewPresumptive negative for S. pneumoniae antigen in urine, suggesting no current or recent pneumococcal infection. Infection due to S. pneumoniae cannot be ruled out since the level of antigen present in the urine may be below the detection limit of the test....Reviewed and Electronically signed by Pathologist:Amaury Sinha MD, PhD #[id number] Comment: AMAURY SINHA MD, PhD - [id number] by: AMAURY SINHA MD, PhD - [id number] Date/Time: 07.11.2021 1:11 AM [employer] NEGATIVE Transcribed Date/Time: 07.11.2021 1:11 AM CSTElectronically Signed By: AMAURY SINHA MD, PhD - [id number] on 07.11.2021 1:11 AM [facility] ORFORDMD AndersonLegionella Urine Antigen Path Oeiyfx4074-03-16 07:11:20 Legionella Urine Antigen Path ReviewNegative for L. pneumophila serogroup 1 antigen, suggesting no recent or current infection. However, infection due to other serogroups and species of Legionella are not detected by this assay. In addition, antigen may not be present in the urine in early infection and the level of antigen present in the urine may be below the detection limit of the test....Reviewedand Electronically signed by Pathologist:Amaury Sinha MD, PhD #[id number] Comment: AMAURY SINHA MD, PhD - [id number] by: AMAURY SINHA MD, PhD - [id number] Date/Time: 07.11.2021 1:11 AM [employer] NEGATIVE Transcribed Date/Time: 07.11.2021 1:11 AM CSTElectronically Signed By: AMAURY SINHA MD, PhD - [id number] on 07.11.2021 1:11 AM [facility] ORFORDMD AndersonMRSA Screening Jqkllho1385-07-21 17:31:51 Test Item Value Reference Range Interpretation Comments Final Report (test No Methicillin resistant code = 8488) Staphylococcus aureus isolated. Path Review (test Culture yield may be code = 8492) affected by sample quality, prior treatment, and transportation conditions....The results have been reviewed and electronically signed by Pathologist:Amaury Sinha MD, PhD #[id number] MD Juanjo Wilburn (In-House)2021-07-10 12:49:59 Test Item Value Reference Range Interpretation Comments Troponin T (test code = 37 ng/L See_Comment H < 19 ng/L 9384) Han ggest retest at 3 to 6 hours later to rule o ut myocardial infarction >= 1 9 to <=52 ng/L Possible myocar dial injury. Sugges t retest at 3 rafael rs. - a change of < 20 ng/L, retest at 6 rafael rs - a change of >= 20 ng/L, suggestive of myocardial infarction > 52 ng/L Suggest sheron of myocardial infa rction Critical value will be reported when c Nishant is > 52 ng/L and o nly reported for th e first in a series. He molyzed specimens with Hemolysis Index >100 (100 mg/dl or m oderate hemolysis) may cause interferences a nd falsely low res ults. [Automated mess age] The system [employer] generated this result transmitted ref erence range: <=18. Th e reference range was not used to int erpret this result as normal/abnormal . Lab Interpretation Abnormal (test code = 12410-9) MD DorantesCalcium Ionized, Mngulp0636-52-83 04:43:41 Test Item Value Reference Range Interpretation Comments V Ion Ca (test code = 50662-6) 0.96 mmol/L 1.15-1.29 L Lab Interpretation (test code = Abnormal 85073-6) MD DorantesStreptococcus pneumoniae Urine Eftufvx3539-02-66 23:04:40 Test Item Value Reference Range Interpretation Comments Streptococcal Urine Antigen Negative Interpretation (test code = 85443850) MD DorantesLegionella Urine Hzbrylh6324-34-24 22:58:02 Test Item Value Reference Range Interpretation Comments Legionella Urine Antigen Negative Interpretation (test code = 3524119) MD DorantesPayuafggKyuiyofrcxspv7037-53-28 00:33:03 Test Item Value Reference Range Interpretation Comments Procalcitonin (test 0.15 ng/mL See_Comment H Procalci tonin > 2.00 code = 9379) ng/mL: Procalcitonin l evels above 2.00 ng/m L are highly suggesti ve of a high risk for systematic bact erial infection/ margot re sepsis and/or s eptic shock. Procalci tonin < 0.50 ng/mL: Procalcitonin l evels below 0.50 ng/m L are at low risk for progression to severe sepsis and/ or septic shock. Procalci tonin (ProCT) between 0.15 and 2.0 ng/mL d o not exclude infecti on, because localiz ed infections (wit hout systemic signs) may be associated w ith such low levels . Results greater than 400 ng/mL may n ot be reliable due to the matrix effect w ith extended diluti on as it exceeds the dental laboratory technician apprentice's recommended krishnamurthy it. Caution should be exercised when interpreting han ch values and done in conjunction wit h clinical contex t. [Automated mess age] The system [employer] generated this result transmitted ref erence range: <=0.08. The reference range was not used to int erpret this result as normal/abnormal . Lab Interpretation Abnormal (test code = 88494-5) MD DorantesGeneral Laboratory Add-On [id number] 22:22:54 Test Item Value Reference Range Interpretation Comments Ordered (test code = 6568) Test Added Test Needed (test code = 7604) Procalcitonin MD DorantesProthrombin Time with [id number] 19:02:49 Test Item Value Reference Range Interpretation Comments PT (test code = 6746) 15.3 See_Comment H Rechec ked and Verified [Autom ated message] The sy stem which generated this result transmit mary reference range : 11.5 - 13.9 second(s ). The reference range was not used to int erpret this result as normal/abnormal . INR (test code = 5973) 1.29 0.90-1.10 H Reche cked and Verified Lab Interpretation (test Abnormal code = 86926-4) MD Breaux [id number] 19:02:48 Test Item Value Reference Range Interpretation Comments D-Dimer (test code = 0.77 See_Comment H Recheck ed and 5419) VerifiedThe cut off value for exclu mir of venous thromboe mbolismis <0.51 mcg/mL FE Us (fibrinogen equ ivalent units). [Autom ated message] The sy stem which generated this result transmit mary reference range : 0.10 - 0.50 mcg/ml FEU . The reference range was not used to interpr et this result as normal/abnormal . Lab Interpretation Abnormal (test code = 80933-6) MD DorantesFractionated [id number] 19:00:33 Test Item Value Reference Range Interpretation Comments Bili Total (test code 0.7 mg/dL See_Comment Indocy anine Green = 5096) (ICG) may cause falsely elevate d bilirubin resul ts. Total and direc t bilirubin must not be measured from s amples containing indo cyanine green. False el evation of total biliru bin can be seen in oscar ents with IgG concentrations above 28 g/L. [Autom ated message] The sy stem which generated this result transmit mary reference range : <=1.2. The refe rence range was not u sed to interpret this result as normal/abnor mal. Bili Direct (test code 0.5 mg/dL See_Comment H Indoc yanine Green = 5094) (ICG) may cause falsely elevate d bilirubin resul ts. Total and direc t bilirubin must not be measured from s amples containing indo cyanine green. [Automat ed message] The sy stem which generated this result transmit mary reference range : <=0.3. The refe rence range was not u sed to interpret this result as normal/abnor mal. Bili Indirect (test 0.2 mg/dL 0.0-0.9 code = 5095) Lab Interpretation Abnormal (test code = 36107-1) MD DorantesAlbumin [id number] 19:00:30 Test Item Value Reference Range Interpretation Comments Albumin Lvl (test code = 3.4 See_Comment L [A utomated message] 7741) The system [employer] generated this result transmitted ref erence range: 3.5 - 5. 2 gm/dL. The refe rence range was not u sed to interpret this result as normal/abnor mal. Lab Interpretation (test Abnormal code = 59108-9) MD DorantesAspartate Tbdotaijnvwzvwns5828-74-12 19:00:29 Test Item Value Reference Range Interpretation Comments AST (test code = 26 U/L See_Comment [Automated message] The 1122) system which ge nerated this result transmit mary reference range : <=40. The reference range was not used to interpr et this result as shavon l/abnormal. MD DorantesTotal Dizlffu6311-15-56 19:00:23 Test Item Value Reference Range Interpretation Comments Total Protein (test code = 7649) 5.9 g/dL 6.4-8.3 L Lab Interpretation (test code = Abnormal 23127-2) MD DorantesAlkaline Afmtjbfwafb6540-66-08 19:00:22 Test Item Value Reference Range Interpretation Comments Alk Phos (test code = 4768) 49 U/L 40-129 QhaevxhfBMY3604-41-84 19:00:21 Test Item Value Reference Range Interpretation Comments ALT (test code = 16 U/L See_Comment [Automated message] The 2292) system which ge nerated this result transmit mary reference range : <=41. The reference range was not used to interpr et this result as shavon l/abnormal. Jose ECardiac Ydfyd9706-21-77 18:51:30 Test Item Value Reference Range Interpretation Comments CK (test code = 5206) 112 U/L 39-308 CK MB (test code = 2.4 ng/mL See_Comment [Automat ed message] 0056) The system [employer] generated this result transmitted ref erence range: <=10.4. The reference range was not used to int erpret this result as normal/abnormal . Troponin T (test code = 36 ng/L See_Comment H < 19 ng/L 9384) S uggest retest at 3 to 6 hours later to rule out myocardial infarction >= 1 9 to <=52 ng/L Possible myocar dial injury. Sugges t retest at 3 rafael rs. - a change of < 20 ng/L, retest at 6 hours - a agustín nge of >= 20 ng/L, suggestive of myocardial infarction > 52 ng/L Sugges tive of myocardial infarction Crit ical value will be reported when c Nishant is > 52 ng/L and o nly reported for th e first in a seri es. Hemolyzed speci mens with Hemolysis Index >100 (100 mg/dl or moderate hemoly sis) may cause interferences a nd falsely low res ults. [Automated mess age] The system [employer] generated this result transmitted ref erence range: <=18. Th e reference range was not used to int erpret this result as normal/abnormal . Lab Interpretation Abnormal (test code = 79172-8) MD [id number] 18:50:51 Test Item Value Reference Range Interpretation Comments aPTT (test code = 30.7 See_Comment [Automate d message] The 3982) system which ge nerated this result transmit mary reference range : 24.7 - 36.8 second(s). The reference range was not used to interpr et this result as shavon l/abnormal. MD DorantesPOC Chem 8 without Hemoglobin and [id number] 18:20:24 Test Item Value Reference Range Interpretation Comments POC NA (test code = 131 See_Comment L [Automa mary message] 60272-2) The system [employer] generated this result transmitted ref erence range: 138 - 14 6 mEq/L. The refe rence range was not u sed to interpret this result as normal/abnor mal. POC K (test code = 2.3 See_Comment A Method de scription: 81915-5) The i-STAT is a n analyzer used f or in vitro quantific ation of various anal ytes in whole blood. The device uses a s lindsey disposable cart ridge which contains microfabricated sensors, a calibration che ution, fluidics system , and a waste chamber . Each test cartridge contains chemic ally sensitive biose nsors on a [employer] ip that are config ured to perform spec ific tests. The microfabricated sensors measure analyte concent ration by an electroch emical assay. [Automa mary message] The sy stem which generated this result transmit mary reference range : 3.5 - 4.9 mEq/L. Th e reference range was not used to int erpret this result as normal/abnormal . POC CL (test code = 81 See_Comment L [Automa mary message] 2068-08) The system [employer] h generated this result transmitted ref erence range: 98 - 109 mEq/L. The refe rence range was not u sed to interpret this result as normal/abnor mal. POC VTCO2 (test code 32 See_Comment H [Autom ated message] = 2026-06) The system [employer] h generated this result transmitted ref erence range: 24 - 29 mEq/L. The reference r jackie was not used to interpret this result as normal/abnor mal. POC Anion Gap (test 21 mmol/L - H code = 26467) POC BUN (test code = 16 mg/dL 01-27 6299-2) POC Crea (test code 1.0 mg/dL 0.6-1.3 Medicati ons, = 32861-5) especially hydroxyurea or supplements, han ch as ascorbate, can interfere with test results causing a falsely and significantly h igher result than exp ected. If a problem is suspected with a patient's resul t, a [facility]. Method descript ion: The i-STAT is a n analyzer used f or in vitro quantific ation of various anal ytes in whole blood. The device uses a s lindsey disposable cart ridge which contains microfabricated sensors, a calibration [employer] system , and a waste chamber . Each test cartridge contains chemic ally sensitive biose nsors on a [employer] ip that are config ured to perform spec ific tests. The microfabricated sensors measure analyte concent ration by an electroch emical assay. POC eGFR-AA (test 87 See_Comment Normal eGF R >= 60 code = 41144-2) mL/min/1.73 m2 The eGFR is calcula mary using the CKD-E PI equation. The e GFR declines with a ge. eGFR <60 mL/min /1.73 m2 is considere d as "decreased" Thi s equation should only be used for pat ients 18 and older. According to th e National Kidney Foundation's dney Disease Outcome Quality Initiat sheron (KDOQI) classification and 2012 Kidney Dis ease Improving Globa l Outcomes (KDIGO ) Clinical Practi ce Guideline, the stage of CKD should b e categorized bas ed on estimated GFR. Stage Description GFR mL/min/1.73 m21 Kidney damage w ith normal or high GFR >=902 Kidney d amage with mild decre ase in GFR 60-893a Mild to moderate dec rease in GFR 45-5 93b Moderate to sev ere decrease in GFR 30-444 Severe decrease in GFR 15-295 Kidney f ailure <15 (or eve lysis) [Automated [employer]] The system [employer] generated this result transmitted ref erence range: >=60 mL/min/1.73 m2. The reference range was not used to int erpret this result as normal/abnormal . POC eGFR-JOSELITO (test 75 See_Comment Normal eG FR >= 60 code = 93370-7) mL/min/1.73 m2 The eGFR is calcula mary using the CKD-E PI equation. The e GFR declines with a ge. eGFR <60 mL/min /1.73 m2 is considere d as "decreased" Thi s equation should only be used for pat ients 18 and older. According to th e National Kidney Foundation's dney Disease Outcome Quality Initiat sheron (KDOQI) classification and 2012 Kidney Dis ease Improving Globa l Outcomes (KDIGO ) Clinical Practi ce Guideline, the stage of CKD should b e categorized bas ed on estimated GFR. Stage Description GFR mL/min/1.73 m21 Kidney damage w ith normal or high GFR >=902 Kidney d amage with mild decre ase in GFR 60-893a Mild to moderate dec rease in GFR 45-5 93b Moderate to sev ere decrease in GFR 30-444 Severe decrease in GFR 15-295 Kidney f ailure <15 (or eve lysis) [Automated mes vasquez] The system [employer] generated this result transmitted ref erence range: >=60 mL/min/1.73 m2. The reference range was not used to int erpret this result as normal/abnormal . POC Glucose (test 132 mg/dL 70-99 H code = 96323-4) POC Ion Ca (test 1.00 mmol/L 1.12-1.32 L code = 00534-4) POC Sample Type Venous (test code = 6690) POC Clean Dev (test Yes code = 6672) Performing Lab (test MDA Main Main Ca mpus code = 35261) [facility], [address], [place] [address]; School Secretary: Paty Chavez MD Lab Interpretation Abnormal (test code = 71206-0) [facility] [id number] 18:20:23 Test Item Value Reference Range Interpretation Comments POC Critical Comment See Note Test pe rformer notified (test code = 8955) Ordering Licensed Provider and /o r designee of POC Potassium criti nikki Results. MD DorantesCOVID-19 (SARS-CoV-2)Exkqmadufbxm-RD5992-29-04 17:58:39 Test Item Value Reference Range Interpretation Comments COVID19 Not Detected Not Detected (SARS-CoV-2) (test code = 55708-5) COVID19 SARS Inpatient Indication (test Admission code = 03668) Covid 19 Comment See Note The ying S ARS-CoV-2 (test code = [place] [address]) use on the dharmesh s [employer]ly[employer] System is a gem l-time RT-PCR assay in tended for the qualita tive detection of SARS-CoV-2 (COV ID-19) viral RNA in nasopharyngeal swabs from either individuals sidney pected of COVID-19 by their healthcare prov ider or from any individual, inc luding individuals wit hout symptoms or oth er reasons to susp ect COVID-19. A fa ct sheet for rhonda nts provided by the dental laboratory technician apprentice ([employer]) can be rev iewed at: https://www.fda .gov/m edia/189389/denys nload. A fact sheet fo r Health Care pro viders is provided by the dental laboratory technician apprentice ([employer]) and can be reviewed at: https://www.fda .gov/ edia/408083/denys nload Results must be interpreted wit hin the context of all relevant clinic al and laboratory find ings and should not form the sole basis for a diagnosis or treatment decis ion. Positive result s do not rule out bacterial infec tion or co-infection with other viruses. Negative result s do not preclude SARS-CoV-2 infe ction and must be com bined with clinical observations, p atient history, and/or epidemiological information. Th is assay has been authorized by t FDA for use only un isabel Emergency Use Authorization ( EUA) in laboratories that have been CLIA-certified to perform moderate-comple xity and high-comple xity tests. The Microbiology Laboratory at [facility], CLIA Accreditation #[id number] and CAP Accreditation #[id number], verif ied the performance characteristics of this assay. Int ernal controls are ed to monitor all sta ges of the test proces s. MD DorantesCreatine [id number] 18:26:09 Test Item Value Reference Range Interpretation Comments CK (test code = 5206) 84 U/L 39-308 MD DorantesNT-Pro BNP (In-House)2021-06-22 18:26:08 Test Item Value Reference Range Interpretation Comments NT ProBNP (test code = 1199 pg/mL See_Comment H [Aut omated message] 2208) The system whic h generated this result transmit mary reference range : <=125. The refe rence range was not u sed to interpret th is result as normal/abnormal . Lab Interpretation Abnormal (test code = 50544-7) MD [id number] 18:26:07 Test Item Value Reference Range Interpretation Comments CK MB (test code = 2.6 ng/mL See_Comment [Automat ed message] The 5669) system which ge nerated this result tra nsmitted reference range : <=10.4. The reference r jackie was not used to int erpret this result as normal/abnormal . MD DorantesPathology Outside Msnwxxwufgquuf1577-70-35 20:17:02 Test Item Value Reference Range Interpretation Comments Materials Received (test d6fibBYkKGGasBUuSkEf code = 9973) CENcFGRop5woJVYtiITv ZzEwMzNcZnRuYmpcdWMx OWSdAbFyi4bls767xGHx x7vlQBAiJqC2zSRiAJGl tHYgQ620QQLgFClof4yy m2KxWCGhtZDiw7C1LQZR staeiBx6pJkfA78pw0L1 IkvrC4bzKJRbLJJgI2Ac JB7aPWQeTwh3VHS4BWN1 FXLwDSCjJ0YhBU4hAAPj uOFqIOz6a1mqjSjaFKJe VKJ9z5oaBAdlmmSaPE2l jy8hqHl7h4bfmePcWSXg DKKhgPDGMKXqV6QndPxf Rk8wuMt1rDuwYokaKVL8 Kah1QZ6kfu73jtc0oFso FRNdivrdTfC3UJrbNJAu yopsPHx2TGnjUKRtwVbk MFxtYXJncjcyMFxtYXJn mAB6XRAhuJBtK1QpNCBk LQocDHTjzcg5NdMlJp0w xZAbqMeuWHhzt8xfj6kx yVMlYek3FVIiUqImGhhv EUjfs6Ctc5rzWKDqlv5h FOT9nRXanZccg1P0aNHw CDRkwMUaciRhRLBgev31 dRDbuNIrbWJcxj9dpxRk rQGpuDCjHXK0qVHkpmIv RFHjqVSiRMFpAO0zmABe JSKmeT9iyqhlWODnCfMh upfeIEMfzNxzsfJuUl3q eWneCMR4PEraO7rywQ7j YxT2GHmwY3eayQ0mASa7 KZnqbUD0UVHfyM8pTM4x dqfzh3ucKkGfUA8vcudp o9nhXkPpMI9pblc7q2bc YRG1NCcrLUQyBqL4jyX8 NDBcaGVhZGVyeTcyMFxm q088ZKI1GrLmISNnj6Fu X0IxhRjiR39ivUjcN02v MHXhdCciiI7miEufiT3p GvAdAxLsDFn8ke04WJt1 cyajkGaxOMq2nvPtQAWx CLP3PXFzuXUtMLPkZ9w0 eiJpETPnGDF3AGVcqWWq BMYjN0n5dnXrNYA5XIb1 cnBhZGRmdDNcdHJwYWRk YjBcdHJwYWRkZmIzXHRy tBJghVEmuQOayE0fuCxt MRJuoKDqxK4xQVY2SXUv cmgzMjBcdHJoZHJcbHRy pa11RFTrzqFucFOozMej pDLqTYJ9OWDvDRGmVXEh MHP3OQLeUsKystWsOOfr bGJyZHJiXGJyZHJzXGJy GRR0IONeTyVhbmTvVWlf bGJyZHJsXGJyZHJzXGJy GPF5BGXxUcIilsBxPTnr bGJyZHJyXGJyZHJzXGJy VYV4SINaPhBigaIgSIqt bHBhZHQxMFxjbHBhZGZ0 Z6lsrVKgYVOtUTgybQEq AKAfF9mdaKAfCDiyYRYx cGFkZmwzXGNscGFkYjBc A2gmNUKrAqPgA6FrqKi9 MDAwXGNsdmVydGFsdFxj sGSnKPV3OSAvVVLuGJKz GMO6MPLnPwQrvzHdHTpp bGJyZHJiXGJyZHJzXGJy ZLF1OCGqKvGbzpUjIVtz bGJyZHJsXGJyZHJzXGJy AZJ2JCYnOtJejzKkUOdw bGJyZHJyXGJyZHJzXGJy CIV8FSFwBdKiytUoWRvp bHBhZHQxMFxjbHBhZGZ0 S0lrsCCiYUEkDZsicLVe QCNtZ7obuYWzXQxqYKQp cGFkZmwzXGNscGFkYjBc E8elCMFaHkZvD1BugGf3 NjAwXGNsdmVydGFsdFxj hTGyKQI7LURfBWGkYEHz VXN3CAQoDdSeooXkYTyz bGJyZHJiXGJyZHJzXGJy XUM6NZMfJrJokzEpUSdl bGJyZHJsXGJyZHJzXGJy QRS3ALBjIlHmqgTkGFpb bGJyZHJyXGJyZHJzXGJy WMC8DAMbMsJjfgGpUDkr bHBhZHQxMFxjbHBhZGZ0 L5qviWOpZOStXLdvhVPl EBEzE8hjbLVnJVqoNETf cGFkZmwzXGNscGFkYjBc W8yaQHGnWdOiX2SjqCp1 WzWpZZPwlgYkcV23Fsnj k6QjTFVgSBV1GMuqYKlu bFxwbGFpblxmMVxmczIw QRqdxxkyYYJeSYhiQ5hv RgTbCDWpfIaeNPonq7Tb XGYxXGNmMlxmczIwXGIg YDPrJLYtqS3jFuswK1Ic oS4wPTdtFjqhL8lkTNVg w2XatH9wVUeceCEekffl MVxmczIwXGxhbmcxMDMz RQvnQ8coDwLzPJVseCzm BLmfk3XgRXVwHPLwZbxb peMhZIo0oaQoPTIodMsy cYErCAvocoUeiCmru6Dj qtLxdSmdXOUqEFd1dtKv niekoWv7eOCgvKlgSMFb xEetqK6iApHxPlFePFsc bGFpblxmMVxmczIwXGxh bnlcMPAeEXosQ5ozEgRx DRUrfJzoJJhul8TrPTQa LCVlAuadbgQzNNKzT27d bGVjdGVkXHBsYWluXGYx XGZzMjBcbGFuZzEwMzNc aGljaFxmMVxkYmNoXGYx WWbbQ3psNlAlU3EoPTVs WgBrpDAgF5mkS9BxfRuy YXJkXGludGJsXHNzcGFy MLN3oTTbifOedPWxiZVm HXZpHFvdSRD2qXBmlmda gCGyagijFGqfagQ9CJGh YWluXGYxXGZzMjBcbGFu ZzEwMzNcaGljaFxmMVxk YcWdXCBqNJivA6epVxPm M4FfGLJbJxAbAdTSPMLc aXZlZFxwbGFpblxmMVxm czIwXGxhbmcxMDMzXGhp V6pkMwRnODZlfMzrCYzu t6QfYSQzGDFzYnzjyrZp QSt5qtGfIWNyvMuiwW53 Mgqwcb63GHAoh9qgUHVf V3ZzsVVfUEVbyULkOUek MDhcdHJwYWRkZmwzXHRy cGFkZHIxMDhcdHJwYWRk ZnIzXHRycGFkZHQwXHRy nWGhRFT9D2r0oiDrSGFw CMt0bhMpQBKdGzAdoUQz ZDQ9JOs5MlewnsG5nUWa A1t2KpdmirJbQZzihJCb hc46SXOaawRalLVgpPkw lZZoAZP6YDCeIJIuDMCf RJE3GDXqLdDfddHsAXrr bGJyZHJiXGJyZHJzXGJy UGX6JOJpVrJahsKtQCiz bGJyZHJsXGJyZHJzXGJy IXU5DGGzTrJvpiDwHSus bGJyZHJyXGJyZHJzXGJy VIY5VCPkZiGxijOhQZdk bHBhZHQxMFxjbHBhZGZ0 U1hddSHoZUDsUSxxhPSw USJzC2fhzWYdFYktDUTn cGFkZmwzXGNscGFkYjBc F5gxRVAkJkJiB7EkxMs9 MDAwXGNsdmVydGFsdFxj sRWsFNP7MYWwRCRdIKKw FTG8BSUbVsNhzfLfIVfe bGJyZHJiXGJyZHJzXGJy IWM2FPLjWcVngrOdULyv bGJyZHJsXGJyZHJzXGJy CKS3SKIfGeWaowFtNCyx bGJyZHJyXGJyZHJzXGJy LLM4ROGoQsLykpHqJDnf bHBhZHQxMFxjbHBhZGZ0 M3uybVVyYCEkXSontWPb RDZhN2hbhJVhTLdjXVQf cGFkZmwzXGNscGFkYjBc Q4ruWERmOgFxN0MomVo9 NjAwXGNsdmVydGFsdFxj dHAuIYS9RDDiQMZqQUPh URF2QCOuWuTcfvXnGFyx bGJyZHJiXGJyZHJzXGJy TQA1BONmKgOkjnBcNSqx bGJyZHJsXGJyZHJzXGJy IRE0EEPeYsTcngYbNXnw bGJyZHJyXGJyZHJzXGJy LTE7NRGoXbVtrjCwATri bHBhZHQxMFxjbHBhZGZ0 X1mygTSgSYJuGSzrzFOw HLJaV9rpzGQdKHcdHSWh cGFkZmwzXGNscGFkYjBc C5csYODqGdVvF9ZlyXb4 McUbWXDcclUroE93Yhjh i3PpAMPcRFH5CPmrJPbc bFxwbGFpblxmMFxmczI0 XHBsYWluXGYxXGZzMjBc bGFuZzEwMzNcaGljaFxm VPirOuWnMNLnFQlaL7mz RgRaD6YeSTOvPfDmFE7l HbN8ABMdFRK1JPZ0OXVY JBFtKTXYX1CQLnqyIPES T7EtoPbvpW6xBpWmLuPt SAuuZH4dPFNoD7royYTb RVGdJJNyN1qqOnThhG4n aFxmMVxjZjJcZnMyMFxs dHJjaFxjZWxsXHBhcmRc dM45Ijvtf9XwAUMjSJF0 MFxzMFxxbFxwbGFpblxm BMrndnE0ZYEtIJqtSLDo XGZzMjBcbGFuZzEwMzNc aGljaFxmMVxkYmNoXGYx OZjvJ7siIbIzR5SxXSCr MjAgMTAvMjUvMjAyMVxw bGFpblxmMVxmczIwXGxh msmuDLFfWEvkN9luJnSq TOCycHqoQBrng6ReNIJe YFYiZgazorEtJQp4qkEi XGNlbGxccGFyZFxpbnRi dGyve7YjwmFduSwlUXBn XHFsXHBsYWluXGYwXGZz TbCwcTruoU1zIcGgExEp VSwrFJ2nTLOpQ9qacZRt KUZfMMYaB4wmBpHtlR5h aFxmMVxjZjJcZnMyMCAx UH7iOo8vLWRqQNFrWFjz XGYxXGZzMjBcbGFuZzEw MzNcaGljaFxmMVxkYmNo GDJxKCglW3uxOlAvN1Kk RFKbSgDvtRTkL9caD5Oz gRbscyTiwRaah7slqIDl INxfm4UidgSvoOokNXNk XHFsXHBsYWluXGYwXGZz YfHauWwunU2uRkZfBuDb SCodME2tJCCkS6xfrPGy CJKpVXKjF4noUhPjgQ4w aFxmMVxmczIwXHBhcn0= Addendum 1 (test code = k7axiPChBXFbbJW8RnGd 37) CIWsa5cjh0TvaEBihLDe XFshfYMyeyFhgj81yMZ5 nW08PW8zVRKtBjC3LYWs miS1Fjt0CBXcHKKrjEXw X916l4pbi0zsrkKzmQJ6 aDtwRFIiatgeYgO2UZpg OBVtmdmlQIx6NToiNSNb mRR7ZMOthVRjZ6UdTESk EY3uhik6CDA2FLjkUFXt RpX2UHHhkCDyHNQjrNgz LIcqd637ZNQ9CsCcPJEs muHihJrizB7gMpUuDNCA TSJljLusqyOeSS2jwOBh oCJeHAWsX3ToowGzLY2m JXYdTxGlYwPiVtOfFI12 uLVwDIKlFAZdAHSqvD0r DnphVuR0ISYkXVJ6MIWm YACVMHEpXCODJ4GHLXKl MAUEIbwuG87msKTbiUMv OL8aDAGtKxJ9YwPlUlJx XHBhclxwYXIgRGVlcGVy OLjteaQsgfOdVxCczS8t eeLuBhH2HKKoOJW0IVDk IHdlcmUgZXhhbWluZWQu AQZaQJNgxjslwC1uyGAp wZVxft2xkHMhbzTjOAuf hoO4fzXdYA5tFNTwUOOu cn0= Diagnosis (test code = m2bztLDzWKHvzTX8EuSx 34) CZIqp1bzw0JdfTYgmFVi HAgytZLwvtWzii68hQB1 gA28LM1jDFXwWrD2DNVs alK1Cdm3MKQyPUYdcQLx I431n5vyj5kzxxAltNF1 EZXyPDCwG1OaJN3jHHNz hKSaI85azPPkVZA1QGMb NUHpcAJjHICvUJA7PNIz fGRzJ9ekIUBvIR4wcheb MGusUGoyVFCtnBM8RJAl nEGhO9XlMRWzSPpsQBYc ywa2XlPlVd4pdYCniRtm MFxwYXJkXHBsYWluXGZz IePpT6YnYW49bQQdYJIg KDIxOklTMTUzOCwgNiBT Nho2KTFxtlmgAlQkxASg XGxpNzIwXGxpbjcyMCBM TQR5adiiMZLmZ3u2UIAa eJBzfw0dGJgwHpygpOF2 IChBKTpccGFyXGxpMTQ0 IRgvoZ3oOPHiMFZKSFLC H4MBVXVTCFrnD3JUW9vO V92BSXFptJYbhWPbg4Vf LSHhrhWfnhAtd1lbqeik EPSbxXm5BgZcmXizNdMm IBSrjzUXOVC1avqkLIas WzTuUDM3oBKjw4nsYFQp tU3pq7vtXPQsDfbnUNGz sDdvSTNkKCfopfB4PQJm A8M1DR4umPZpvFOar3Av EPtcnTfiZ0gds21dCdQd zgDzYO8bORPqk06uFU4m N1C3zOCqOVTvuuW6mT2i scvnLUQqzJy8DcDzaMdu OrDcMNXuryEOKXF6dxeg VVyfBwQcZmEuc4Wwgx5z JAsgX45lSXjnGjuivIG5 IChDKTpccGFyXGxpMTQ0 ZZifyT6hAHFiILKduXHp r9NzEC00Y84cXOReezUu dNmzk1Bvh8HxuSXsjufv S0upqkPjMT1jP8L1aTUt XKSkpyE8vG4nfqfsALDp hNSqZFMinjJsT59HT5WN TlxwYXJ9 Salon Coordinator(s) (test code f0ucoWZoMRDczQC2YpAn = 9863) ZCGqa6tus2XmfKZcjVVt CRhbxWJztwYhnj03tYM2 fW73CP2nSAKtRqW0YIQj lbV7Dxx4QKVtVATxlLQr Z062z4ovb3ljwkZwqMT9 qWeyTZPfhdlvPtL3JIbh DSBopvvqTAq0BLopXKVy nHG7MDQexOJeD9DnITBw SI2jqmg0ACE5FYlgKZXo YfC5KOEcfLQbXXArpIje OKjlb076JLM7NxWcZYPl arMgbWpekK5lStYyUNAP dp2vLDuzxNPxoYPxA2cf bGlhbXMgaGFzIHJldmll u2QpSNHsjyKaIJAhawAm G59nZ5Saeh4ihTGrlY== [employer](s) (test m9geuURrUZWvsLX8IpAm code = 9841) AXMbf6ika3VrfVZonRQe REmpsDOwvqRcoh05qAJ8 aD14CX7mAFUoNwT7WKNq ovD7Qlx4SWMnCOLlpJZx W194j8hmo5ojszKakGD1 aAktAYHvvvwrPiY3TGxd RAFdokzcLMm8MMolHXBl uSM4RFQodVTgR8KkPXCm BT7xgrj7LTY1SApvTSVe QmX6BRInbPDmZBYlkGzx FZgmd230DYO4YlGeUGHx qdDcbYjlyF5xEqJoFRDB OiBBXHBhciBOOiBDXHBh cn0= Disclaimer (test code = z0bodLNvOBYqfZEtFmRx 9844) PLGgYTPbv8fjHRCasMVm ZzEwMzNcZnRuYmpcdWMx BZVoDdMdv6ebu754tFCe u5hpWNTbDnO2hFQxPUFm nOVrP517JETgDOfbf5ep w9BfQDChvZZkg8R5LTET ixmkaMt3wVfpX23am4F6 HubdD7evNKRfRHQdX6Jm XH2yTIHqUtl6SWX6DWP8 WTJgMUXgJ0PzRF3qENAj lTNkLEm3y8sicMgpFXNi TDS8f1dhPZshriUjMU5g ob6evEt5e8orgiWeSJNj QHZjcCZFSWVgC4GuuQad Wm8vxZt1dAisTtonNAS1 Nyu3SN6aqt79esg7gNoq AJJgkcmoTmV6OXmnTWQa iheqVCa0JGmqBPLcbBF4 VPPgtDRyB7IsPPTzNF2e zqs4RQK9XEemNQKsHnH8 NDBcaGVhZGVyeTcyMFxm z214AHH1DeFfQS0qV3Qr m9B1zO0xuEOjUAZzgVFp XnZbYVAuye1sbIUhXPpw p3ScAGN6bdP1jPKcbHEn MLBcAP09Okucz2NdZflr WUQ6VUKlhpDdh7Phs1yg QuAbbsZjF1geT7JiVDUe IWYkASLeHkJxmhJtr9Kt h0YiwGUswZo2t5klIUNn AZUdyCuzn6ipCJB5NFFj P2R4rVAdg3gpNRhyLDLi yMO3caA2EQSklZRpY2Fe vU9eUUDkIY6qobg4y7df RGG6YYnqEPFdMoI0otU1 NDBcaGVhZGVyeTcyMFxm o412FLG9DkEnPMOzt2Qp Y3KxvCknU12chLszI20w JGThrTcecF6voStuwA1k ZjBcZnMyNFxxbFxwbGFp bcycTZsvnrV5AKmaktmy JOZnYTrxU6nfOgRiJZCb pEtqIMbke8RcCRQmWRCk EjdhvcV2ZTVVv28bSSOi v3XdYZBjzC9giDJxMGtt mnZljAB3WStauiMpClEh syVuXVWjlV7eNPOvQS4t XEOsulCvih5vmxVbOIBh EBPxE2GszomjzFealhXt WTKthe7ksaHcJRL9BFJG OQ3GAAIyTWUsz75xUSYy lJazlA6pxJBccoZmUHWh e4PvuS0abKOBFZXzX2wj OI9kSJkqp9FjjAFkaWNp iGF5PSAuz9EjUtNcqrPj fIYerZOiO2KmaNyaM3yn SZJnPKHtifTquHIfc3Il CYAlbEU0tMWoSP8YVxHY t47vGMZwDKUQiuJzZCNk tHjuyYV3baU8nD6dFmKO ZiBhcHBsaWNhYmxlLCBj k765dw3czlT1IZDcMSAl mywxb7DbRXSiAUGngW23 AMVvTLTwsu5chxcebLDw oeKlA2Wnkhg8gE4zNDCb YWluXGYxXGZzMjJcbGFu ZzEwMzNcaGljaFxmMVxk BxEqWUDhKKobT9hqMxOd ZnMyMlxwYXJ9 MD DorantesIL COVID-19 (MAURA-CoV-2) PCR [id number] 01:46:37 Test Item Value Reference Interpretation Comments Range COVID19 SARS Pre-Out of OR Procedure Indication (test code = 77367) COVID19 SARS Result Not Detected Not Detected (test code = 65979-6) COVID19 SARS SARS-CoV-2 NOT Detected. Interpretation (test Reference Range: Not code = 64881) Detected Methodology: The [employer] RealTime SARS-CoV-2 assay is a qualitative real-time reverse financial representative polymerase chain reaction (tunnel elastic operator zigzag-PCR) test to detect RNA from SARS-CoV-2 in nasal, nasopharyngeal and oropharyngeal swabs from patients with signs and symptoms of infection who are suspected of COVID-19 by their health care provider. The [employer] RealTime SARS-CoV-2 performed on the [employer] System is a dual target assay with primers and probes for the RdRp and N genes. Results must be interpreted within the context of all relevant clinical and laboratory findings, and epidemiological risk factors. Positive results are indicative of the presence of SARS-CoV-2 RNA; clinical correlation with patient history and other diagnostic information is necessary to determine patient infection status. Positive results do not rule out bacterial infection or co-infection with other viruses. Negative results do not preclude SARS-CoV-2 infection and should not be used as the sole basis for patient management decisions. The [employer] RealTime SARS-CoV-2 assay is for in vitro diagnostic use under FDA Emergency Use Authorization only. Testing is limited to laboratories certified under the Clinical Laboratory Improvement Amendments of 1988 (CLIA), 42U.S.C. 263a, to perform high complexity tests. The Test was performed by the CLIA-certified, high-complexity [facility] ([facility]) at [facility] under the Food and Drug Administration (FDA) s Emergency Use Authorization. Factsheet for patients: https://www.[employer]erson.org/ AbbottFactSheetPatientsFact sheet for healthcare providers: https://www.[facility]nap[facility].org/ AbbottFactSheetHCP Test performed by:[facility] [id number] [place] [address] MD DorantesGlucose, [id number] 18:55:04 Test Item Value Reference Range Interpretation Comments Glucose Random 136 mg/dL 70-199 Effective 12/03 12/17, the (test code = 9360) glucose r eference intervals have been updated based o n [employer] rommel delines (Standards of M edical Care in Diabete s 2016. Diabetes Care 2 016; 39: S13-S22).Fastin g blood glucose:Normal: 70-99 mg/dLImpaired f asting glucose (increa sed risk for diabetes or pre-diabetes): 100-125 mg/dLDiabetes m ellitus: >/=126 mg/dL R andom blood glucose:N ormal: 70-199 mg/dLNot e: Random glucose >100 mg/dL is associ ated with increased risk for diabetes PEDRO LUIS (test code = Not fasting PEDRO LUIS) MD DorantesVitamin D [id number] 18:49:59 Test Item Value Reference Range Interpretation Comments Vitamin D 25 OH (test 42 ng/mL 30-100 Refere nce Range: code = 8018) Deficiency: <10 ng/mLInsuff iciency: 10-29 ng/mLSufficienc y: 30-100 ng/mLPotential toxicity: >10 0 ng/mL MD DorantesTMP HCV Ab Path [id number] 12:33:38 Test Item Value Reference Range Interpretation Comments HCV Ab Path There is NO Interp (test serologic evidence code = 8923) of Hepatitis C M AYRIN virus antibody. DELFINO FERNANDEZ,Dictated by: RUFINO FERNANDEZ,Dictated Date/Time: 05.04.2021 6:33 AM INSPECTOR [employer] NEGATIVE Transcrib ed Date/Time: 05.04.2021 6:33 AM CSTElectronical ly Signed By: JOSEPHINE IN DELFINO FERNANDEZ, on 05.04.2021 6:33 AM C MD DorantesHepatitis C Virus [id number] 05:13:47 Test Item Value Reference Range Interpretation Comments HCVAb. (test Non Reactive Non Reactive Antibody detect ion in the code = 5762) immunocompromis ed and immunosuppresse d population may be delayed or absent entirely. There fore serial testing, correl ation with other clinical findings, and supplementa l testing (if available) should be taken into cons ideration when interpreti ng the results.Perform ed at:[id number] [place] [address] [phone] MD [id number] 15:50:39 Test Item Value Reference Range Interpretation Comments TSH (test code = 3.71 See_Comment [Automated message] The 2937) system which ge nerated this result transmit mary reference range : 0.27 - 4.20 mcunit/mL. The reference range was not used to interpr et this result as shavon l/abnormal. MD [place] [id number] 15:50:30 Test Item Value Reference Range Interpretation Comments T4 Free (test code = 7502) 1.46 ng/dL 0.93-1.70 [facility] [id number] 12:58:27 Test Item Value Reference Range Interpretation Comments POC Crea (test 1.2 mg/dL 0.6-1.3 Medications, code = 72360-4) especially hydroxyurea or supplements, han ch as ascorbate, can interfere with test results causing a falsely and significantly h igher result than exp ected. If a problem is suspected with a patient's resul t, a sample should b e sent to the laborato for confirmatory te sting. Method descript ion: The i-STAT is a n analyzer used f or in vitro quantific ation of various anal ytes in whole blood. The device uses a s lindsey disposable cart ridge which contains microfabricated sensors, a calibration che ution, fluidics system , and a waste chamber . Each test cartridge contains chemic ally sensitive biose nsors on a [employer] ip that are config ured to perform spec ific tests. The microfabricated sensors measure analyte concent ration by an electroch emical assay. POC eGFR-AA (test 70 See_Comment Normal eGF R >= 60 code = 82387-7) mL/min/1.73 m2 The eGFR is calcula mary using the CKD-E PI equation. The e GFR declines with a ge. eGFR <60 mL/min /1.73 m2 is considere d as "decreased" Thi s equation should only be used for pat ients 18 and older. According to th e National Kidney [employer]'s Ki dney Disease Outcome Quality Initiat sheron (KDOQI) classification and 2012 Kidney Dis ease Improving Globa l Outcomes (KDIGO ) Clinical Practi ce Guideline, the stage of CKD should b e categorized bas ed on estimated GFR. Stage Description GFR mL/min/1.73 m21 Kidney damage w ith normal or high GFR >=902 Kidney d amage with mild decre ase in GFR 60-893a Mild to moderate dec rease in GFR 45-5 93b Moderate to sev ere decrease in GFR 30-444 Severe decrease in GFR 15-295 Kidney f ailure <15 (or eve lysis) [Automated mes vasquez] The system [facility] [employer] [facility] generated this result transmitted ref erence range: >=60 mL/min/1.73 m2. The reference range was not used to int erpret this result as normal/abnormal . POC eGFR-JOSELITO 60 See_Comment Normal eGFR >= 60 (test code = mL/min/1.73 m2 The 61086-3) eGFR is calcula mary using the CKD-E PI equation. The e GFR declines with a ge. eGFR <60 mL/min /1.73 m2 is considere d as "decreased" Thi s equation should only be used for pat ients 18 and older. According to th e National Kidney Foundation's Ki dney Disease Outcome Quality Initiat sheron (KDOQI) classification and 2012 Kidney Dis ease Improving Globa l Outcomes (KDIGO ) Clinical Practi ce Guideline, the stage of CKD should b e categorized bas ed on estimated GFR. Stage Description GFR mL/min/1.73 m21 Kidney damage w ith normal or high GFR >=902 Kidney d amage with mild decre ase in GFR 60-893a Mild to moderate dec rease in GFR 45-5 93b Moderate to sev ere decrease in GFR 30-444 Severe decrease in GFR 15-295 Kidney f ailure <15 (or eve lysis) [Automated mes vasquez] The system [employer] generated this result transmitted ref erence range: >=60 mL/min/1.73 m2. The reference range was not used to int erpret this result as normal/abnormal . POC Clean Dev Yes (test code = 6672) Performing Lab Radiology OP [facility] Radiology OP CTR (test code = [facility] 23814) [facility], [address], [place], [place] [address]; Point of Care L ab Director: MD MD Jose E Bedoya
--- NOTE | 2021-07-15 17:13 | RAD REPORT ---
EXAM DESCRIPTION: RAD - Chest Single View - 07/15/2021 4:50 pm CLINICAL HISTORY: check tube placement COMPARISON: No relevant comparison TECHNIQUE: AP portable chest image was obtained 07/15/2021 4:50 pm . FINDINGS: Dobhoff feeding tube has been placed. Tip of the tube is in the fundus of the stomach near the GE junction. No abnormal bend or kink of the tubing.
--- NOTE | 2021-07-15 17:49 | EDPHYS ---
Physician Documentation [facility] Name: Roland Lam Age: 71 yrs Sex: Male : 1950 Arrival Date: 07/15/2021 Time: 13:50 Bed 9 Private MD: ED Physician Jagdeep Dorantes HPI: 07/15 16:20 This 71 yrs old Male presents to ER via Ambulatory with complaints of Feeding Tube kb Replace. 16:20 Pt reports his dobhoff tube is clogged since this morning. Denies any pain, n/v, fever. kb . Onset: The symptoms/episode began/occurred today. Severity of symptoms: At their worst the symptoms were moderate in the emergency department the symptoms are unchanged. The patient has not experienced similar symptoms in the past. The patient has not recently seen a physician. Historical: - Allergies: 14:03 No Known Allergies; ll1 - PMHx: 14:03 CAD; COPD; Diabetes - NIDDM; High Cholesterol; throat CA; ll1 - Immunization history:: Client reports receiving the 2nd dose of the Covid vaccine, Flu vaccine is up to date. - Social history:: Smoking status: Patient reports the use of cigarette tobacco products, smokes one-half pack cigarettes per day. ROS: 16:19 Constitutional: Negative for fever, chills, and weight loss. kb 16:19 All other systems are negative. Exam: 16:19 Constitutional: This is a well developed, well nourished patient who is awake, alert, kb and in no acute distress. Head/Face: Normocephalic, atraumatic. Respiratory: Respirations even and unlabored. No increased work of breathing. Talking in full sentences Skin: Warm, dry with normal turgor. Normal color. MS/ Extremity: Pulses equal, no cyanosis. Neurovascular intact. Full, normal range of motion. Neuro: Awake and alert, GCS 15, oriented to person, place, time, and situation. Moves all extremities. Normal gait. Psych: Awake, alert, with orientation to person, place and time. Behavior, mood, and affect are within normal limits. 16:19 ENT: Nose: Dobhoff tube to left nare. Vital Signs: 14:01 BP 154 / 59; Pulse 92; Resp 17; Temp 98.5; Pulse Ox 100% ; Weight 68.49 kg; Height 5 ll1 ft. 6 in. (167.64 cm); Pain 0/10; 18:36 BP 101 / 59; Pulse 108; Resp 18; Pulse Ox 99% on R/A; ic1 14:01 Body Mass Index 24.37 (68.49 kg, 167.64 cm) ll1 MDM: 14:17 Patient medically screened. kb 16:19 Data reviewed: vital signs, nurses notes. Data interpreted: Pulse oximetry: on room air kb is 100 %. Interpretation: normal. 17:48 Counseling: I had a detailed discussion with the patient and/or guardian regarding: the kb historical points, exam findings, and any diagnostic results supporting the discharge/admit diagnosis, radiology results, the need for further work-up and treatment in the hospital. 17:50 ED course: Tube curled in upper stomach. Discussed with Dr Dorantes, recommended kb admission for repeat KUB in AM after hydration, reglan and laying on left side. . 18:13 ED course: Family called and said the dobhoff was only supposed to be in the stomach, kb not the intestine. States they used that for comfort instead of a NG tube. Nurse had placed an NG tube after removal of dobhoff. Pt states he is comfortable with it and he will keep that in place. Has an appt with MD Dorantes next week. Pt and family want to go home. Will return for any problems. 07/15 15:46 Order name: Chest Single View XRAY; Complete Time: 17:16 kb 07/15 17:27 Order name: Chest Single View XRAY; Complete Time: 18:11 kb 07/15 16:40 Order name: Misc. Order: Replace dobhoff 07/15 17:46 Order name: IV Start kb Administered Medications: No medications were administered Disposition: 07/16 05:10 Co-signature as Attending Physician, Jagdeep Dorantes MD I agree with the assessment and agustín plan of care. Disposition Summary: 07/15/21 18:16 Discharge Ordered Location: Home(07/15/21 18:16) kb Condition: Stable(07/15/21 18:16) kb Diagnosis - Encounter for clogged feeding tube kb Followup: kb - With: Emergency Department - When: As needed - Reason: Worsening of condition Followup: kb - With: Private Physician - When: 2 - 3 days - Reason: Recheck today's complaints, Continuance of care, Re-evaluation by your physician Discharge Instructions: - Discharge Summary Sheet kb - How to Care for a Feeding Tube, [id number] kb - Nasogastric Feeding Tube Insertion, Adult, Care After kb Forms: - Medication Reconciliation Form kb - Thank You Letter kb - Antibiotic Education kb - Prescription Opioid Use kb Signatures: Dispatcher [employer] Carmina Bynum, AUTOMATIC BLOCKER-C AUTOMATIC BLOCKER-Jagdeep Ellington MD MD cha Lewis, Lynsay, RN RN ll1 Corrections: (The following items were deleted from the chart) 07/15 18:15 17:49 Observation kb kb 18:15 17:49 Chandan Rolle kb kb 18:15 17:49 Telemetry/MedSurg (observation) kb kb 18:15 17:49 Stable kb kb 18:15 17:49 new kb kb 18:15 17:49 are unchanged kb kb 18:15 17:49 Standard kb kb 18:15 17:49 kb kb 18:15 17:49 Dysphagia kb kb
--- NOTE | 2021-07-15 17:49 | ER ---
Nurse's Notes [facility] Name: Roland Lam Age: 71 yrs Sex: Male : 1950 Arrival Date: 07/15/2021 Time: 13:50 Bed 9 Private MD: Diagnosis: Encounter for clogged feeding tube Presentation: 07/15 14:01 Chief complaint: Patient states: Clogged Dobhoff tube, started today while was ll1 trying to give him medications through it. Had 1 feeding early this morning. Coronavirus screen: Vaccine status: Patient reports receiving the 2nd dose of the covid vaccine. Client denies travel out of the [place] in the last 14 days. At this time, the client does not indicate any symptoms associated with coronavirus-19. Ebola Screen: Patient denies travel to an Ebola-affected area in the 21 days before illness onset. Initial Sepsis Screen: Does the patient meet any 2 criteria? No. Patient's initial sepsis screen is negative. Does the patient have a suspected source of infection? No. Patient's initial sepsis screen is negative. Risk Assessment: Do you want to hurt yourself or someone else? Patient reports no desire to harm self or others. Onset of symptoms was July 15, 2021. 14:01 Method Of Arrival: Ambulatory ll1 14:01 Acuity: HOWARD 4 ll1 Triage Assessment: 14:12 General: Appears in no apparent distress. Behavior is calm, cooperative, appropriate ss for age. Pain: Denies pain. GI: Reports Dobhoff tube clogged. Historical: - Allergies: 14:03 No Known Allergies; ll1 - PMHx: 14:03 CAD; COPD; Diabetes - NIDDM; High Cholesterol; throat CA; ll1 - Immunization history:: Client reports receiving the 2nd dose of the Covid vaccine, Flu vaccine is up to date. - Social history:: Smoking status: Patient reports the use of cigarette tobacco products, smokes one-half pack cigarettes per day. Screenin:59 Abuse screen: Denies threats or abuse. Denies injuries from another. Nutritional ll1 screening: No deficits noted. Tuberculosis screening: No symptoms or risk factors identified. Fall Risk None identified. Assessment: 15:59 General: Appears in no apparent distress. comfortable, Behavior is calm, cooperative. ll1 Pain: Denies pain. Neuro: No deficits noted. Cardiovascular: No deficits noted. Respiratory: No deficits noted. GI: No deficits noted. : No deficits noted. EENT: Reports Pt has NGT placed bar captain. States it became clogged and he is unable to unclog it. Denies sob or cp. . Derm: No deficits noted. Musculoskeletal: No deficits noted. 17:32 Reassessment: xray at bedside. ic1 Vital Signs: 14:01 BP 154 / 59; Pulse 92; Resp 17; Temp 98.5; Pulse Ox 100% ; Weight 68.49 kg; Height 5 ll1 ft. 6 in. (167.64 cm); Pain 0/10; 18:36 BP 101 / 59; Pulse 108; Resp 18; Pulse Ox 99% on R/A; ic1 14:01 Body Mass Index 24.37 (68.49 kg, 167.64 cm) ll1 ED Course: 13:50 Patient arrived in ED. mr 14:03 Triage completed. ll1 14:03 Arm band placed on. ll1 14:12 Patient placed in an exam room, on a stretcher. ss 14:17 Carmina Rutherford FNP-C [facility]. kb 14:17 Jagdeep Dorantes MD is Attending Physician. kb 15:59 Patient has correct armband on for positive identification. Bed in low position. Call ll1 light in reach. 15:59 No provider procedures requiring assistance completed. ll1 16:51 Chest Single View XRAY In Process Unspecified. EDMS 17:28 NGT: inserted 12 Fr. via left nare. Patient tolerated well. ic1 17:38 Chest Single View XRAY In Process Unspecified. EDMS 17:48 Chandan Rolle is Hospitalizing Provider. kb 18:36 Patient did not have IV access during this emergency room visit. ic1 Administered Medications: No medications were administered Outcome: 17:49 Decision to Hospitalize by Provider. kb 18:16 Discharge ordered by . kb 18:36 Discharged to home with significant other. ic1 18:36 Condition: stable 18:36 Discharge instructions given to patient, Instructed on discharge instructions, follow up and referral plans. Demonstrated understanding of instructions, follow-up care, Prescriptions given X 18:37 Patient left the ED. ic1 Signatures: Dispatcher [employer] EDWY Carmina Rutherford FNP-C FNP-Yamilex Martinez mr Maame Stewart, RN RN ss Skip Polk, RN RN ll1 Carlota Vogel, RN RN ic1
[2021-07-15] MEDS ORDERED: NA CHLORIDE 0.9% 0 ML ONE (17:54)
[2021-07-15] MEDS ORDERED: METOCLOPRAMIDE 10 MG/2mL INJ ONE (17:54)
--- NOTE | 2021-07-15 18:04 | RAD REPORT ---
EXAM DESCRIPTION: RAD - Chest Single View - 07/15/2021 5:38 pm CLINICAL HISTORY: tube placement COMPARISON: Chest 07/15/2021 TECHNIQUE: AP portable chest image was obtained 07/15/2021 5:38 pm . FINDINGS: Feeding tube has been removed. An NG/ OG tube is now in place. Tip and side hole of the tu elissa or in the proximal stomach. Stomach is decompressed. No abnormal bend or kink of the tubing. No free air or pneumatosis.
[2021-07-15 18:43] VITALS: TEMP 98.5
[2021-07-15 18:44] VITALS: BP 101/59; O2SAT 99
== END 2021-07-15 18:37 | disposition home or self-care (01) ==
LOC: ER 13:46
DX: K94.23 Gastrostomy malfunction (principal); F17.210 Nicotine dependence, cigarettes, uncomplicated
CPT/HCPCS: 71045; 99284; J2765; J7030

== ENCOUNTER 2021-09-05 09:00 | Emergency (ER) | payer OTHER ==
--- OUTSIDE RECORDS SUMMARY | 2021-09-05 09:09 | XMS REPORT | Clinical Summary ---
:[address] [facility] MD Patel [facility] Address [address] [place] [address] Care Team Providers Name Role Phone Olivia Coleman DO Unavailable Slava Canseco MD Primary Care Provider MD Thang Unavailable Samantha Polk MD Unavailable Nirmal Davenport RD Unavailable Laurie Maurer CREAM CHEESE MAKER Unavailable Allergies No known active allergies Medications Medication Sig Dispensed Refills Start End Status Date Date cetirizine (ZyrTEC) TAKE ONE (1) 0 Active 10 mg tablet TABLET(S) BY 1 MOUTH ONCE A DAY. clopidogrel (PLAVIX) TAKE ONE (1) 0 Active 75 mg tablet TABLET(S) BY 1 MOUTH ONCE A DAY. Dexilant 60 mg TAKE ONE (1) 0 Ac tive capsule CAPSULE(S) BY 1 MOUTH DAILY. metFORMIN TAKE ONE (1) 0 Active (GLUCOPHAGE) 500 mg TABLET(S) BY 1 tablet MOUTH TWICE A DAY. fluoride, sodium, Apply to teeth 51 g 20 Active (PREVIDENT) 1.1 % twice daily. 1 dental [place] teeth creamIndications: with cream and Primary squamous spit out as cell carcinoma of directed. (Do larynx, Accretion on not eat, drink teeth or rinse for 30 minutes). albuterol (VENTOLIN Inhale 2 puffs 0 Active HFA,PROAIR HFA) 90 by mouth every mcg/puff inhaler 6 (six) hours as needed. aspirin 81 mg EC Take 81 mg by 0 Active tablet mouth. 0 budesonide-formotero Inhale 2 puffs 0 Active l (SYMBICORT) by mouth twice 160-4.5 daily. Patient mcg/actuation usually does it inhaler once a day at night. ondansetron (ZOFRAN) Take 1 tablet 30 tablet 05/17 Active 8 mg (8 mg) by mouth 1 022 tabletIndications: every 8 (eight) Primary squamous hours as needed cell carcinoma of for nausea or larynx vomiting. 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 dermatitis ferrous sulfate 0 Acti ve (iron) 325 mg (65 mg 8 elemental iron per tablet) tablet lidocaine Swish and 100 mL 2 Active (XYLOCAINE) 20 mg/mL swallow 5 mL 2 (2%) viscous every 4 (four) solutionIndications: hours as needed Oral mucositis due (throat pain). to radiation magnesium oxide 500 Take 1 tablet 30 tablet 1 Active mg (500 mg) by 2 tabletIndications: mouth daily. Primary squamous cell carcinoma of larynx, Hypomagnesemia rosuvastatin daily. 0 Active (CRESTOR) 40 mg 2 tablet losartan (COZAAR) daily. 0 Ac tive 100 mg tablet 2 polyethylene glycol Take 17 g by 510 g 3 Active (GLYCOLAX) 17 mouth 3 (three) 2 gram/dose times a day. powderIndications: Primary squamous cell carcinoma of larynx, Constipation, not otherwise specified cloNIDine HCl Take 1 tablet 10 tablet 0 Ac tive (Catapres) 0.1 mg (0.1 mg) by 2 tabletIndications: mouth 3 (three) Hypertension times a day as needed for high blood pressure (Systolic blood pressure over 180, diastolic over 110). amLODIPine (NORVASC) Give 1 tablet 30 tablet 3 Active 10 mg (10 mg) per 2 tabletIndications: NG-tube daily. Essential hypertension folic acid (FOLVITE) Take 1 tablet 30 tablet 3 Active 1 mg (1 mg) by mouth 2 tabletIndications: daily. Hypokalemia, Hypomagnesemia, Hypophosphatemia, Folate deficiency potassium-sodium Give 1 packet 30 packet 0 Active phosphates per NG-tube 2 (PHOS-NAK) 280 twice daily. mg-160 mg-250 mg Mix contents of powderIndications: 1 packet of the Hypokalemia, powder in 2 and Hypomagnesemia, 1/2 ounces (75 Hypophosphatemia mL) of water or juice. Stir until completely dissolved and drink the mixture right away after mixing. Do not save for later use. thiamine (VITAMIN Take 1 tablet 30 tablet 0 Active B-1) 100 mg tab (100 mg) by 2 tabletIndications: mouth daily. Hypokalemia, Hypomagnesemia, Hypophosphatemia potassium chloride Give 30 mL (40 900 mL 0 Active (KAYCIEL) 20 mEq/15 mEq) per 2 mL NG-tube daily. solutionIndications: Hypokalemia traMADol (ULTRAM) 50 TAKE ONE (1) 90 tablet 0 Active mg TABLET (50 MG) 2 tabletIndications: BY MOUTH EVERY Oral mucositis due 4 (FOUR) HOURS to radiation NEEDED FOR MODERATE PAIN OR SEVERE PAIN. Nicoderm CQ 21 mg/24 Apply 1-2 56 patch 0 Active hr transdermal patches to skin 2 patchIndications: and change Nicotine dependence patch daily as directed for tobacco cessation (alternate sites). HYDROcodone-acetamin Take 1-2 240 tablet 0 Active ophen ([place]) 5 tablets by 2 mg-325 mg per mouth every 8 tabletIndications: (eight) hours Oral mucositis due as needed for to radiation severe pain. gabapentin TAKE ONE (1) 90 capsule 1 Activ e (NEURONTIN) 300 mg CAPSULE(S) BY 2 capsuleIndications: MOUTH THREE Primary squamous TIMES A DAY. 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 Aspiration pneumonia pantoprazole Take 1 tablet 30 tablet 3 Act sheron (PROTONIX) 40 mg EC (40 mg) by 2 tabletIndications: mouth every Aspiration pneumonia morning before breakfast. diazePAM (VALIUM) 5 Take 5 mg by 0 Discontinued mg tablet mouth as 1 022 (Stop Taki ng at needed. Discharge) fenofibrate TAKE ONE (1) 0 Disco ntinued nanocrystallized TABLET(S) BY 1 022 (Stop Taking at (TRICOR) 145 mg MOUTH ONCE A D ischarge) tablet DAY. losartan (COZAAR) 50 Take 100 mg by 0 06/05 Discontinued mg tablet mouth daily. 1 022 (Dose adjustment ) metoprolol tartrate TAKE ONE (1) 0 Discontinued (LOPRESSOR) 50 mg TABLET(S) BY 1 022 (Stop Taking at tablet MOUTH TWICE A Discha rge) DAY WITH FOOD. montelukast TAKE ONE (1) 0 Disco ntinued (SINGULAIR) 10 mg TABLET(S) BY 1 022 (Stop Taking at tablet MOUTH ONCE A Dischar ge) DAY. simvastatin (ZOCOR) TAKE ONE (1) 0 Discontinued 10 mg tablet TABLET(S) BY 1 022 (Dis continued MOUTH EVERY by anoth er EVENING. clinician) tadalafil (CIALIS) Take 20 mg by 0 Discontinued 20 mg tablet mouth. 022 (Error) Nicoderm CQ 21 mg/24 Apply 1 patch 28 patch 0 06/08 Discontinued hr transdermal to skin and 1 022 (Re order) patchIndications: change patch Nicotine dependence daily as directed for tobacco cessation (alternate sites). prochlorperazine Take 1 tablet 60 tablet Discontinued (Compazine) 10 mg (10 mg) by 1 022 tabletIndications: mouth every 6 Primary squamous (six) hours as cell carcinoma of needed for larynx nausea or vomiting (if not controlled by Ondansetron). gabapentin Take 1 capsule 90 capsule 1 Dis continued (Neurontin) 300 mg (300 mg) by 1 022 capsuleIndications: mouth 3 (three) Primary squamous times a day. 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 guaiFENesin Take 10 mL (200 473 mL 3 Di scontinued (ROBITUSSIN) 100 mg) by mouth 4 2 022 (Error) mg/5 mL (four) times a syrupIndications: day. Primary squamous cell carcinoma of larynx, Thick sputum traMADol (ULTRAM) 50 Take 1 tablet 60 tablet 0 07/25 Discontinued mg (50 mg) by 2 022 tabletIndications: mouth every 4 Oral mucositis due (four) hours as to radiation needed for moderate pain or severe pain. cloNIDine HCl Take 1 tablet 10 tablet 0 Di scontinued (Catapres) 0.1 mg (0.1 mg) by 2 022 (Reorder) tabletIndications: mouth 3 (three) Hypertension times a day as needed for high blood pressure (Systolic blood pressure over 180, diastolic over 110). glycopyrrolate Take 1 tablet 90 tablet 1 D iscontinued (RobinuL) 1 mg (1 mg) by mouth 2 022 (Stop Taking at tabletIndications: 4 (four) times Discharge) Primary squamous a day. cell carcinoma of larynx, Thick sputum senna-docusate Take 1-3 100 tablet 3 Disc ontinued (SENOKOT-S) 8.6 tablets by 2 022 (St op Taking at mg-50 mg mouth twice Discharg e) tabletIndications: daily. Primary squamous cell carcinoma of larynx, Constipation, not otherwise specified amoxicillin-clavulan Take 1 tablet 2 tablet 0 07/12 Discontinued ate (Augmentin) 875 (875 mg) by 2 022 (Reorder) mg-125 mg per mouth daily for tabletIndications: 2 doses. Acute hypoxemic respiratory failure, Aspiration pneumonia amoxicillin-clavulan Take 1 tablet 5 tablet 0 07/15 ate (Augmentin) 875 (875 mg) by 2 022 mg-125 mg per mouth twice tabletIndications: daily for 5 Acute hypoxemic doses. respiratory failure, Aspiration pneumonia Active Problems Problem Noted Date Melena 08/26/2021 Anemia 08/25/2021 Aspiration pneumonia 07/10/2021 Severe protein-calorie malnutrition 06/29/2021 Swallowing painful 06/08/2021 Hypomagnesemia 06/08/2021 Bilateral tinnitus 06/08/2021 Neuropathy [...] Resolved Problems Problem Noted Date Resolved Date Acute hypoxemic respiratory failure 07/10/20212 11/2021 Disorder of fluid AND/OR electrolyte 07/08/2021 Syncope 07/08/2021 08/27/2021 Thick sputum 06/29/2021 06/29/2021 Diverticulosis of colon 06/29/2021 06/29/2021 History of polyp of colon 06/29/2021 06/29/2021 Impotence of organic origin 06/29/2021 06/29/2021 Intermittent claudication 06/29/2021 06/29/2021 Iron deficiency anemia 06/29/2021 06/29/2021 Mixed hyperlipidemia 06/29/2021 06/29/2021 Obese 06/29/2021 06/29/2021 Peripheral vascular angioplasty status with implants and 06/29/2021 grafts Seasonal allergic rhinitis 06/29/2021 06/29/2021 Tinnitus 06/29/2021 06/29/2021 Serum creatinine raised 06/08/2021 08/27/2021 Type 2 diabetes mellitus in obese 05/11/20212020 Overview: Left leg Tobacco use 04/26/2021 06/29/2021 Peripheral arterial occlusive disease 10/10/2016 Peripheral vascular disease 10/10/2016 06/29/2021 Encounters Date Type Specialty Care Team Description 09/02/2021 Telephone Radiation Rj, Oncology OUMAR Morris 09/01/2021 Telephone April Wylie, Joe Jurado l RN 08/31/2021 Orders Only Gastroenterology Michael Lam , Hepatology & D., Nutrition 08/30/2021 Orders Only Speech Pathology Caprice Nolen M, CCC-ORGANIC SECTION TECHNICAL LEAD oropharyngeal p hase (Primary Dx) 08/29/2021 Anesthesia Event Endoscopy Sara Deras, Zach Knox, KAREEN 08/29/2021 Surgery Endoscopy Michael Lam DIAGNOSTIC UPP ER Hilario, GASTROINTOSMIN Mcintosh ENDOSCOPY 08/26/2021 Prep for Surgery Gastroenterology Harman, Elizabeth, Iron de ficiency , Hepatology & POCKET BUILDER anemia, not o therwise Nutrition specified (Prim tisha Dx) 08/25/2021 Hospital Encounter General Internal Vu, Hilario Garzon, Chron ic obstructive pulmonary disease (Primary Dx); - Medicine Primary squamous cell carcinoma of laryn x; 08/31/2021 Alta Ferrell Type 2 diabete s mellitus without complication; MD Elza Anemia; Koffi, Iron deficiency anemia, not otherwise specified; Olegario Gamez MD Aspiration pneumonia Cintia Mancia MD Franco Vega, Maria, MD Rubio, David, MD Fortique, Carla, MD 08/25/2021 Ancillary Procedure Radiology Slava Canseco Aspirnehemias on pneumonia; MD Nick Primary squamou s cell carcinoma of larynx 08/25/2021 Documentation Speech Pathology Sara Lim, CCC-ORGANIC SECTION TECHNICAL LEAD 08/25/2021 Telephone Proton Therapy Wayne Castro, RN 08/25/2021 Orders Only Proton Therapy Alexandra De La Rosa PA 08/25/2021 Orders Only Proton Therapy Davina Perez PA 08/25/2021 Orders Only Proton Therapy Chris, Primary squam ous cell OUMAR Rodriguez carcinoma of larynx (Primary Dx) 08/25/2021 Travel 08/23/2021 Telephone Proton Therapy Wayne Castro RN 08/22/2021 Hospital Encounter Speech Pathology Rj, Prima ry squamous cell OUMAR Morris carcinoma of larynx Rebecca Brown, CCC-ORGANIC SECTION TECHNICAL LEAD 08/22/2021 Orders Only Radiation Rj, 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); Oncology OUMAR Morris Aspiration pneu monia 08/22/2021 Orders Only Head and Neck Erasto, Aspiration pne umonia (Primary Dx); Medical Oncology Anca Sullivan APN Primary s quamous cell carcinoma of larynx 08/22/2021 Travel 08/20/2021 Clinical Support Andres De La Rosa, Suspected C OVID-19 (Primary Dx); OUMAR Morris Primary squamous cell carcinoma of laryn x Margo Reyes RN 08/20/2021 Travel 08/20/2021 Refill Proton Therapy Rj, Primary squam ous cell carcinoma of larynx; OUMAR Morris 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; Neuropathic farida n 08/15/2021 Refill Internal Mancia, Hypokalemia; Medicine MD Cintia Hypomagnesemia; Hypophosphatemi a 08/14/2021 Orders Only Radiation Johanne Harry MD Oral mucositis due to Oncology radiation (Prim tisha Dx) 08/14/2021 Telephone Proton Therapy Wayne Castro RN 08/08/2021 Documentation Head and Neck Clemons, Surgery Huan H 08/02/2021 Nutrition Nutrition Slava Canseco Primary squamou s cell MD Nick carcinoma of larynx Camilla Davenport RD 08/02/2021 Documentation Nutrition Adele Christensen 08/02/2021 Orders Only Nutrition Ethel 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); Camilla Kinney RD Laryngopharynge al reflux; Chronic obstruc tive pulmonary disease, not otherwise specified; Multiple nodule s of lung; Type 2 diabetes mellitus without complication; Swallowing pain ful; Severe protein- calorie malnutrition, not otherwise specified; Aspiration pneu monia 07/27/2021 Orders Only Proton Therapy Rj, Primary squam ous cell OUMAR Morris carcinoma of la rynx (Primary Dx) 07/25/2021 Documentation Head and Neck Clemons, Surgery Huan H 07/25/2021 Refill Proton Therapy Slava Canseco 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 Nick radiation 07/19/2021 Nutrition Nutrition Slava Canseco MD Ruzensky, Debra A, RD 07/15/2021 Telephone Proton Therapy Wayne Castro, RN 07/13/2021 Telemedicine Head and Neck Yumi Desir, Primary squa mo cell Medical Oncology carcinoma of larynx Erasto, Anca Sullivan CREAM CHEESE MAKER 07/13/2021 Telephone Thoracic Erasto, Medicine Anca Sullivan APN 07/13/2021 Orders Only Head and Neck Yumi Desir, Medical Oncology MD 07/12/2021 Orders Only Head and Neck Eliza Booth, Primary squamo cell Medical motion picture set up worker carcinoma o f larynx (Primary Dx) 07/08/2021 [...] not otherwise specified 07/08/2021 Hospital Encounter Proton Slava Landa MD 07/08/2021 Hospital Encounter Proton Therapy Slava Canseco MD 07/08/2021 Travel 07/07/2021 Hospital Encounter Slava Lucio MD 07/07/2021 Hospital Encounter Proton Therapy Slava Canseco MD 07/07/2021 Hospital Encounter Proton Therapy Slava Canseco MD 07/07/2021 Orders Only Proton Therapy Rj, Primary squam ous cell OUMAR Morris carcinoma of la rynx (Primary Dx) 07/07/2021 Orders Only Radiation Slava Canseco Oncology MD Nick 07/07/2021 Travel 07/06/2021 Infusion Infusion Rj, Primary squamou s cell Services OUMAR Morris carcinoma of larynx Ballena, (Primary Dx) Ten Rivera, RN 07/06/2021 Nutrition Nutrition Slava Canseco MD Nancy, Maame Jamil RD 07/06/2021 Office Visit Head and Neck Slava Canseco Primary phiamo us cell Medical Oncology MD Nick carcinoma of larynx Anca Maurer APN 07/06/2021 Hospital Encounter Vascular Access Slava Canseco and Procedures MD Leela Romero Bhumarat S, RN 07/06/2021 Hospital Encounter Proton Therapy Slava Canseco MD 07/06/2021 Hospital Encounter Proton Therapy Slava Canseco MD 07/06/2021 Orders Only Proton Therapy Rj, Primary squam ous cell OUMAR Morris carcinoma of la rynx (Primary Dx) 07/06/2021 Orders Only Proton Therapy Gloria, Primary squam ous cell Wayne Singh RN carcinoma of l arynx (Primary Dx) 07/06/2021 Orders Only Proton Therapy Rj, Primary squam ous cell OUMAR Morris carcinoma of la rynx (Primary Dx) 07/06/2021 [...] specified 07/01/2021 Documentation Speech Pathology Crista Connolly CCC-ORGANIC SECTION TECHNICAL LEAD 07/01/2021 Telephone Radiation Andring, Oncology Caprice Antonio [...] MD Nick loss, bilateral Kerline, (Primary Dx) Murphy Gupta 06/24/2021 Hospital Encounter Proton Therapy Slava Canseco MD 06/24/2021 Travel 06/24/2021 Orders Only Head and Neck Yumi Desir, Medical Oncology 06/23/2021 Hospital Encounter Proton Therapy Slava Canseco MD 06/23/2021 Hospital Encounter Proton Slava Landa MD 06/23/2021 Travel 06/23/2021 Documentation Proton Therapy Maame Cruz, ANDRÉS 06/23/2021 Orders Only Head and Neck Erasto, Primary squamo us cell Medical Oncology Anca Sullivan APN carcinoma of larynx (Primary Dx) 06/22/2021 Emergency Emergency Jerel, Hypertension (P rimary Dx); Medicine MD Nichole Type 2 diabetes mellitus without complication; Primary squamou s cell carcinoma of larynx 06/22/2021 Hospital Encounter Proton Therapy Slava Canseco MD 06/22/2021 Travel 06/21/2021 Hospital Encounter Proton Therapy Slava Canseco MD 06/21/2021 Hospital Encounter Proton Therapy Rj, Primary squamous cell Alexandra, OUMAR carcinoma of larynx Slava Canseco MD 06/21/2021 Documentation Radiation Slava Canseco Oncology MD Nick 06/21/2021 Travel 06/20/2021 Hospital Encounter Infusion Yumi Desir, Primary squamous cell Services carcinoma of larynx Panganiban, (Primary Dx) Sam Garzon RN 06/20/2021 Hospital Encounter Lab Yumi Desir, Primary squamous cell MD carcinoma of la rynx 06/20/2021 Travel 06/17/2021 Hospital Encounter Proton Therapy Slava Canseco MD 06/17/2021 Orders Only Head and Neck Alyse Polk Medical Oncology Denise Nuñez 06/17/2021 Orders Only Proton Therapy Rj, Primary squam ous cell Alexandra, PA carcinoma of la rynx (Primary Dx) 06/17/2021 Travel 06/16/2021 Hospital Encounter Proton Therapy Slava Canseco MD 06/16/2021 Travel 06/15/2021 Office Visit Head and Neck Slava Canseco Hypomagnesemia (Primary Dx); Medical Oncology MD Nick Primary squamous cell carcinoma of laryn x Anca Maurer CREAM CHEESE MAKER 06/15/2021 Hospital Encounter Speech Pathology Ene Polk M, MD oropharyngeal phase Christy Chavez, [facility]-ORGANIC SECTION TECHNICAL LEAD 06/15/2021 Hospital Encounter Proton Slava Landa MD 06/15/2021 Hospital Encounter Proton Slava Landa MD 06/15/2021 Documentation Proton Therapy Nancy, Maame Jamil, ANDRÉS 06/15/2021 Orders Only Radiation Slava Canseco Oral mucositis due to Oncology MD Nick radiation (Prim tisha Dx) 06/15/2021 Orders Only Proton Therapy Gloria, Primary squam ous cell Wayne Singh RN carcinoma of l arynx (Primary Dx) 06/15/2021 Travel 06/14/2021 Hospital Encounter Proton Slava Landa MD 06/14/2021 Hospital Encounter Proton Slava Landa MD 06/14/2021 Travel 06/13/2021 Hospital Encounter Infusion Yumi Desir, Primary squamous cell Services carcinoma of larynx Yue Alaniz, (Primary Dx) RN 06/13/2021 Hospital Encounter Proton Slava Landa MD 06/13/2021 Hospital Encounter Proton Slava Landa MD 06/13/2021 Hospital Encounter Lab Yumi Desir Primary squamous cell MD carcinoma of la [...] MD 06/09/2021 Travel 06/08/2021 Hospital Encounter Proton Slava Landa MD 06/08/2021 Hospital Encounter Proton Slava Landa MD 06/08/2021 Hospital Encounter Speech Pathology Rj Prima ry squamous cell OUMAR Morris carcinoma of larynx Crista Connolly, CCC-ORGANIC SECTION TECHNICAL LEAD 06/08/2021 Office Visit Head and Neck Yumi Desir, 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); Medical Oncology Swallowing painful; Serum creatinin e raised; Hypomagnesemia 06/08/2021 Documentation Proton Therapy Maame Cruz, ANDRÉS 06/08/2021 Travel 06/07/2021 Hospital Encounter Proton Slava Landa MD 06/07/2021 Travel 06/06/2021 Hospital Encounter Proton Therapy Slava Canseco MD 06/06/2021 Hospital Encounter Infusion Yumi Desir, Primary squamous cell Services carcinoma of la rynx (Primary Dx) 06/06/2021 Hospital Encounter Lab Yumi Desir Primary squamous cell carcinoma of la rynx 06/06/2021 Orders Only Head and Neck Alyse Polk Medical Oncology Denise Nuñez 06/06/2021 Orders Only Head and Neck Yumi Desir Medical Oncology 06/06/2021 Travel 06/02/2021 Hospital Encounter Proton Therapy Slava Canseco MD 06/02/2021 Documentation Radiation GardenRomeo Oncology MD Skinny 06/02/2021 Travel 06/01/2021 Office Visit Head and Neck [place] squamo us cell carcinoma of larynx (Primary Dx); Medical Oncology MD Brenda Encounter f or antineoplastic chemotherapy 06/01/2021 Hospital Encounter Proton Therapy Yue Stahl MD Lee, Anna, MD 06/01/2021 Hospital Encounter Proton Therapy Slava Canseco MD 06/01/2021 Travel 05/31/2021 Hospital Encounter Proton Therapy Slava Canseco MD 05/31/2021 Nutrition Nutrition Slava Canseco MD Deas, Haley K, RD 05/31/2021 Hospital Encounter Proton Therapy Slava Canseco MD 05/31/2021 Travel 05/30/2021 Infusion Infusion Yumi Desir, Primary squam ous cell Services carcinoma of larynx oCle Rosenthal, (Primary Dx) RN 05/30/2021 Hospital Encounter Proton Slava Landa MD 05/30/2021 Hospital Encounter Lab Thang, Yumi, Primary squamous cell carcinoma of la rynx 05/30/2021 Travel 05/25/2021 Office Visit Head and Neck Yumi Desir, Primary squa mous cell Medical Oncology MD carcinoma o f larynx 05/25/2021 Hospital Encounter Proton Therapy Slava Canseco MD 05/25/2021 Hospital Encounter Proton Slava Landa MD 05/25/2021 Orders Only Proton Therapy Rj Primary squam ous cell carcinoma of larynx (Primary Dx); OUMAR Morris 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; Radiation derma titis; Neuropathic farida n 05/25/2021 Travel 05/24/2021 Hospital Encounter Proton Slava Landa MD 05/24/2021 Travel 05/23/2021 Hospital Encounter Proton Therapy Slava Canseco MD 05/23/2021 Infusion Infusion Yumi Desir Primary squam ous cell Services MD carcinoma of larynx Jacob, (Primary Dx) Roc Bertrand III, RN 05/23/2021 Hospital Encounter Lab Yumi Desir, Primary squamous cell MD carcinoma of la rynx 05/23/2021 Hospital Encounter Proton Slava Landa MD 05/23/2021 Travel 05/22/2021 Hospital Encounter Proton Therapy Slava Canseco MD 05/22/2021 Documentation Radiation Caprice Nguyen Oncology MD Dulce 05/22/2021 Travel 05/19/2021 Nutrition Nutrition Slava Canseco MD Nancy, Maame Jamil, ANDRÉS 05/19/2021 Orders Only Head and Neck Ene Polk, Surgery MD Samantha oropharyngeal p hase (Primary Dx) 05/18/2021 Hospital Encounter Radiology Rj, Primary s quamous cell OUMAR Morris carcinoma of larynx Cady Gómez CCC-ORGANIC SECTION TECHNICAL LEAD 05/18/2021 Travel 05/16/2021 Hospital Encounter Proton Therapy Slava Canseco MD 05/16/2021 Orders Only Head and Neck Erasto, Medical Oncology Anca Sullivan APN 05/16/2021 Documentation Head and Neck Clemons, Surgery Huan Sullivan 05/12/2021 Documentation Radiation Slava Canseco Oncology MD Nick 05/12/2021 Multidisciplinary Visit Head and Neck Dmitriy Hua PA 05/12/2021 Orders Only Head and Neck Yumi [...] Oncology MD Nick 05/11/2021 Orders Only Radiation Manlover, Jose Martin Oncology MD Diana PhD 05/11/2021 Travel 05/10/2021 Orders Only Proton Therapy Slava Canseco Primary squam ous cell MD Nick carcinoma of la rynx (Primary Dx) 05/06/2021 Hospital Encounter Dental Oncology Yobany Jovel ter for ElvaANTHONY observation for other suspected disea se ruled out 05/06/2021 Hospital Encounter Dental Oncology Jolene Jovel y squamous cell carcinoma of larynx (Primary Dx); ANTHONY Stevenson Encounter for o bservation for other suspected disease ruled out; Accretion on te eth; Xerostomia 05/06/2021 Hospital Encounter Speech Pathology Rj, Prima ry squamous cell OUMAR Morris carcinoma of larynx Sara Harris, PhD 05/06/2021 Hospital Encounter Head and Neck Ene Polk Tobacco use (Primary Dx); Surgery MD Samantha Primary squamou s cell carcinoma of larynx; Laryngopharynge al reflux; Peripheral vasc ular disease; Essential hyper tension; Disorder of car otid artery; 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, not otherwise specified; Chronic bronchi tis, not otherwise specified 05/06/2021 Travel 05/05/2021 Orders Only Dental Oncology Collinuradipika, Encounter fo jaclyn Colin observation for other MD Vadim suspected disea se ruled out (Prim tisha Dx) 05/04/2021 Hospital Encounter Proton Therapy Slava Canseco Primary squamous cell MD Nick carcinoma of la rynx (Primary Dx) 05/04/2021 Clinical Support Andres De La Rosa, Suspected C OVID-19 (Primary Dx); OUMAR Morris Primary squamous cell carcinoma of laryn x Trixie Hollingsworth RN 05/04/2021 Hospital Encounter Lab Yumi Desir, Primary squamous cell carcinoma of la rynx 05/04/2021 Orders Only Radiation Jose Martin Sweeney Primary squamo us cell Oncology MD Diana carcinoma of la rynx PhD (Primary Dx) 05/04/2021 Travel 05/03/2021 Hospital Encounter Lab Rj, Primary s quamous cell OUMAR Morris carcinoma of la rynx 05/03/2021 Ancillary Procedure Radiology Rj, Primary squamous cell OUMAR Morris carcinoma [...] Steve Munguia MD Xu, Ya, MD after 09/05/2020 Immunizations Name Administration Dates Next Due Moderna SARS-CoV-2 Booster Vaccination 04/16/2021 Moderna SARS-CoV-2 Vaccination 08/07/2020, 07/10/2020 Surgical History Surgery Date Site/Laterality Comments CHOLECYSTECTOMY FEMORAL ARTERY STENT Left Left leg IA ESOPHAGOGASTRODUODENOSCOPY 08/29/2021 Esophagus/N/A Pr ocedure: DIAGNOSTIC TRANSORAL DIAGNOSTIC UPPER GASTR OINTESTINAL ENDOSCOPY; Surg jay: Michael Lam MD; Location: MAIN ENDOSCOPY; Serv ice: GASTROENTEROLOGY IA COLONOSCOPY FLX DX W/COLLJ SPEC 08/29/2021 N/A Procedure: DIAGNOSTIC WHEN PFRMD FLEXIBLE COLONOS COPY PROXIMAL TO SPLE GINA FLEXURE; Surgeo n: Michael Lam MD; Location: MAIN ENDOSCOPY; Serv ice: GASTROENTEROLOGY Medical History Medical History Date Comments Type [...] Never Used Tobacco Cessation: Ready to Quit: Yes Comments: working on quitting, currently cut down to 4 cpd Alcohol Use Standard Drinks/Week Comments Not Currently 0 (1 standard drink = 0.6 oz pure alcoho l) Sex Assigned at Date Recorded Male 04/26/2021 3:55 PM [employer]ITTING [employer]PECT[employer] Job Start Date Occupation Industry Not on file Not on file Not on file Travel History Travel Start Travel End [place] 04/28/2021 05/01/2021 COVID-19 Exposure Response Date Recorded In the last month, have you been in contact with No / Unsure 08/25/2021 9:30 PM CDT someone who was confirmed or suspected to have Coronavirus / COVID-19? Obstetrics History Last Filed Vital Signs Vital Sign Reading Time Taken Comments Blood Pressure 140/55 08/31/2021 1:09 PM CDT Pulse 89 08/31/2021 1:09 PM CDT Temperature 36.3 C (97.3 F) 08/31/2021 1:09 PM CDT Respiratory Rate 20 08/31/2021 1:09 PM CDT Oxygen Saturation 96% 08/31/2021 1:09 PM CDT Inhaled Oxygen Concentration - - Weight 64.9 kg (143 lb 1.3 oz) 08/31/2021 4:07 AM CDT Height 163 cm (5' 4.17") 08/26/2021 9:25 PM CDT Body Mass Index 24.43 08/26/2021 9:25 PM CDT Plan of Treatment Date Type Specialty Care Team Description 09/20/2021 Appointment Lab Alexandra De La Rosa PA [address] [place] [phone] (Wo rk) 09/20/2021 Appointment Audiology Slava Canseco MD [address] [place] [id number] Candy Churchill AuD [address] [place] [address] 09/20/2021 Appointment Radiology Alexandra De La Rosa PA [facility] [place], [place] [address] (Wo rk) 09/21/2021 Appointment Speech Pathology Alexandra De La Rosa PA [address] [place] [id number] Rhina Kowalski, CCC-ORGANIC SECTION TECHNICAL LEAD [address] [facility] [address] [place] [address] 09/21/2021 Office Visit Head and Neck Medical Jose Raul Christy MD Oncology [address] [place], [place] [address] (Wo rk) 09/21/2021 Appointment Proton Therapy Slava Canseco MD [address] [place], [place] [address] (Wo rk) 09/23/2021 Appointment Radiology Ene Polk MD [facility] [place], [place] [address] (Wo rk) 09/23/2021 Appointment Head and Neck Surgery Cipriano Polk MD [facility] [place], [place] [address] (Wo rk) 06/26/2022 Appointment Radiology Ene Polk MD [facility] [place], [place] [address] (Wo rk) Health Maintenance Due Date Last Done Comments COVID-19 Vaccination (3 - Moderna 05/14/2021 04/16/2021, , risk 4-dose series) 07/10/2020 Implants Implanted Type Area Mannequin Refinisher Device Identifier Shelf Exp iration Model / Serial Date / Lot Stent Stent Description: Left upper leg Stent Stent Description: left side/aorta Procedures Procedure Name Priority Date/Time Associated Comments Diagnosis POC GLUCOSE SCREEN Routine 08/31/2021 10:15 Resul ts for this AM CDT procedure are i n the results section. MANUAL DIFFERENTIAL AM 08/31/2021 4:26 Resu lts for this AM CDT procedure are i n the results section. Results CBC AM 08/31/2021 4:26 Results for this AM CDT procedure are i n the results section. CALCIUM LEVEL TOTAL AM 08/31/2021 4:26 Resu lts for this AM CDT procedure are i n the results section. .GLOMERULAR FILTRATION AM 08/31/2021 4:26 R esults for this RATE AM CDT procedure are i n the results section. SERUM CREATININE AM 08/31/2021 4:26 Results for this AM CDT procedure are i n the results section. ELECTROLYTE PANEL AM 08/31/2021 4:26 Result s for this AM CDT procedure are i n the results section. BLOOD UREA NITROGEN AM 08/31/2021 4:26 Resu lts for this AM CDT procedure are i n the results section. GLUCOSE LEVEL AM 08/31/2021 4:26 Results fo r this AM CDT procedure are i n the results section. COMPLETE BLOOD COUNT W/ AM 08/31/2021 4:26 DIFFERENTIAL AM CDT PHOSPHORUS LEVEL AM 08/31/2021 4:26 Results for this AM CDT procedure are i n the results section. MAGNESIUM LEVEL AM 08/31/2021 4:26 Results for this AM CDT procedure are i n the results section. BASIC METABOLIC PANEL, AM 08/31/2021 4:26 CALCIUM TOTAL AM CDT POC GLUCOSE SCREEN Routine 08/30/2021 10:06 Resul ts for this PM CDT procedure are i n the results section. POC GLUCOSE SCREEN Routine 08/30/2021 4:50 Resul ts for this PM CDT procedure are i n the results section. FL MODIFIED BARIUM Routine 08/30/2021 3:15 Resul ts for this SWALLOW W SPEECH PM CDT procedure a re in the results section. POC GLUCOSE SCREEN Routine 08/30/2021 12:35 Resul ts for this PM CDT procedure are i n the results section. POC GLUCOSE SCREEN Routine 08/30/2021 7:52 Resul ts for this AM CDT procedure are i n the results section. MANUAL DIFFERENTIAL AM 08/30/2021 4:36 Resu lts for this AM CDT procedure are i n the results section. Results CBC AM 08/30/2021 4:36 Results for this AM CDT procedure are i n the results section. CALCIUM LEVEL TOTAL AM 08/30/2021 4:36 Resu lts for this AM CDT procedure are i n the results section. .GLOMERULAR FILTRATION AM 08/30/2021 4:36 R esults for this RATE AM CDT procedure are i n the results section. SERUM CREATININE AM 08/30/2021 4:36 Results for this AM CDT procedure are i n the results section. ELECTROLYTE PANEL AM 08/30/2021 4:36 Result s for this AM CDT procedure are i n the results section. BLOOD UREA NITROGEN AM 08/30/2021 4:36 Resu lts for this AM CDT procedure are i n the results section. GLUCOSE LEVEL AM 08/30/2021 4:36 Results fo r this AM CDT procedure are i n the results section. COMPLETE BLOOD COUNT W/ AM 08/30/2021 4:36 DIFFERENTIAL AM CDT PHOSPHORUS LEVEL AM 08/30/2021 4:36 Results for this AM CDT procedure are i n the results section. MAGNESIUM LEVEL AM 08/30/2021 4:36 Results for this AM CDT procedure are i n the results section. BASIC METABOLIC PANEL, AM 08/30/2021 4:36 CALCIUM TOTAL AM CDT POC GLUCOSE SCREEN Routine 08/29/2021 10:07 Resul ts for this PM CDT procedure are i n the results section. XR ABDOMEN 1 VW STAT 08/29/2021 6:11 Results for this PORTABLE PM CDT procedure are i n the results section. POC GLUCOSE SCREEN Routine 08/29/2021 5:46 Resul ts for this PM CDT procedure are i n the results section. POC GLUCOSE SCREEN Routine 08/29/2021 4:32 Resul ts for this PM CDT procedure are i n the results section. PATHOLOGY BIOPSY Routine 08/29/2021 2:14 Iron deficiency Resu lts for this INTERPRETATION PM CDT anemia, not procedure are in otherwise the results specified section. DIAGNOSTIC FLEXIBLE 08/29/2021 1:46 Iron deficiency COLONOSCOPY PROXIMAL TO PM CDT anemia, not SPLENIC FLEXURE otherwise specified DIAGNOSTIC UPPER 08/29/2021 1:46 Iron deficiency GASTROINTESTINAL PM CDT anemia, not ENDOSCOPY otherwise specified POC GLUCOSE SCREEN Routine 08/29/2021 1:22 Resul ts for this PM CDT procedure are i n the results section. POC GLUCOSE SCREEN Routine 08/29/2021 10:21 Resul ts for this AM CDT procedure are i n the results section. MANUAL DIFFERENTIAL AM 08/29/2021 5:31 Resu lts for this AM CDT procedure are i n the results section. Results CBC AM 08/29/2021 5:31 Results for this AM CDT procedure are i n the results section. CALCIUM LEVEL TOTAL AM 08/29/2021 5:31 Resu lts for this AM CDT procedure are i n the results section. .GLOMERULAR FILTRATION AM 08/29/2021 5:31 R esults for this RATE AM CDT procedure are i n the results section. SERUM CREATININE AM 08/29/2021 5:31 Results for this AM CDT procedure are i n the results section. ELECTROLYTE PANEL AM 08/29/2021 5:31 Result s for this AM CDT procedure are i n the results section. BLOOD UREA NITROGEN AM 08/29/2021 5:31 Resu lts for this AM CDT procedure are i n the results section. GLUCOSE LEVEL AM 08/29/2021 5:31 Results fo r this AM CDT procedure are i n the results section. PROTHROMBIN TIME AM 08/29/2021 5:31 Results for this AM CDT procedure are i n the results section. COMPLETE BLOOD COUNT W/ AM 08/29/2021 5:31 DIFFERENTIAL AM CDT PHOSPHORUS LEVEL AM 08/29/2021 5:31 Results for this AM CDT procedure are i n the results section. MAGNESIUM LEVEL AM 08/29/2021 5:31 Results for this AM CDT procedure are i n the results section. BASIC METABOLIC PANEL, AM 08/29/2021 5:31 CALCIUM TOTAL AM CDT POC GLUCOSE SCREEN Routine 08/28/2021 9:15 Resul ts for this PM CDT procedure are i n the results section. POC GLUCOSE SCREEN Routine 08/28/2021 4:24 Resul ts for this PM CDT procedure are i n the results section. POC GLUCOSE SCREEN Routine 08/28/2021 8:49 Resul ts for this AM CDT procedure are i n the results section. MANUAL DIFFERENTIAL AM 08/28/2021 3:13 Resu lts for this AM CDT procedure are i n the results section. Results CBC AM 08/28/2021 3:13 Results for this AM CDT procedure are i n the results section. CALCIUM LEVEL TOTAL AM 08/28/2021 3:13 Resu lts for this AM CDT procedure are i n the results section. .GLOMERULAR FILTRATION AM 08/28/2021 3:13 R esults for this RATE AM CDT procedure are i n the results section. SERUM CREATININE AM 08/28/2021 3:13 Results for this AM CDT procedure are i n the results section. ELECTROLYTE PANEL AM 08/28/2021 3:13 Result s for this AM CDT procedure are i n the results section. BLOOD UREA NITROGEN AM 08/28/2021 3:13 Resu lts for this AM CDT procedure are i n the results section. GLUCOSE LEVEL AM 08/28/2021 3:13 Results fo r this AM CDT procedure are i n the results section. COMPLETE BLOOD COUNT W/ AM 08/28/2021 3:13 DIFFERENTIAL AM CDT PHOSPHORUS LEVEL AM 08/28/2021 3:13 Results for this AM CDT procedure are i n the results section. MAGNESIUM LEVEL AM 08/28/2021 3:13 Results for this AM CDT procedure are i n the results section. BASIC METABOLIC PANEL, AM 08/28/2021 3:13 CALCIUM TOTAL AM CDT POC GLUCOSE SCREEN Routine 08/27/2021 10:20 Resul ts for this PM CDT procedure are i n the results section. POC GLUCOSE SCREEN Routine 08/27/2021 1:30 Resul ts for this PM CDT procedure are i n the results section. POC GLUCOSE SCREEN Routine 08/27/2021 8:47 Resul ts for this AM CDT procedure are i n the results section. MANUAL DIFFERENTIAL AM 08/27/2021 4:47 Resu lts for this AM CDT procedure are i n the results section. Results CBC AM 08/27/2021 4:47 Results for this AM CDT procedure are i n the results section. CALCIUM LEVEL TOTAL AM 08/27/2021 4:47 Resu lts for this AM CDT procedure are i n the results section. .GLOMERULAR FILTRATION AM 08/27/2021 4:47 R esults for this RATE AM CDT procedure are i n the results section. SERUM CREATININE AM 08/27/2021 4:47 Results for this AM CDT procedure are i n the results section. ELECTROLYTE PANEL AM 08/27/2021 4:47 Result s for this AM CDT procedure are i n the results section. BLOOD UREA NITROGEN AM 08/27/2021 4:47 Resu lts for this AM CDT procedure are i n the results section. GLUCOSE LEVEL AM 08/27/2021 4:47 Results fo r this AM CDT procedure are i n the results section. COMPLETE BLOOD COUNT W/ AM 08/27/2021 4:47 DIFFERENTIAL AM CDT PHOSPHORUS LEVEL AM 08/27/2021 4:47 Results for this AM CDT procedure are i n the results section. MAGNESIUM LEVEL AM 08/27/2021 4:47 Results for this AM CDT procedure are i n the results section. BASIC METABOLIC PANEL, AM 08/27/2021 4:47 CALCIUM TOTAL AM CDT POC GLUCOSE SCREEN Routine 08/26/2021 8:25 Resul ts for this PM CDT procedure are i n the results section. POC GLUCOSE SCREEN Routine 08/26/2021 4:49 Resul ts for this PM CDT procedure are i n the results section. POC GLUCOSE SCREEN Routine 08/26/2021 12:17 Resul ts for this PM CDT procedure are i n the results section. POC GLUCOSE SCREEN Routine 08/26/2021 8:44 Resul ts for this AM CDT procedure are i n the results section. MANUAL DIFFERENTIAL AM 08/26/2021 8:10 Resu lts for this AM CDT procedure are i n the results section. Results CBC AM 08/26/2021 8:10 Results for this AM CDT procedure are i n the results section. CALCIUM LEVEL TOTAL AM 08/26/2021 8:10 Resu lts for this AM CDT procedure are i n the results section. .GLOMERULAR FILTRATION AM 08/26/2021 8:10 R esults for this RATE AM CDT procedure are i n the results section. SERUM CREATININE AM 08/26/2021 8:10 Results for this AM CDT procedure are i n the results section. ELECTROLYTE PANEL AM 08/26/2021 8:10 Result s for this AM CDT procedure are i n the results section. BLOOD UREA NITROGEN AM 08/26/2021 8:10 Resu lts for this AM CDT procedure are i n the results section. GLUCOSE LEVEL AM 08/26/2021 8:10 Results fo r this AM CDT procedure are i n the results section. COMPLETE BLOOD COUNT W/ AM 08/26/2021 8:10 DIFFERENTIAL AM CDT PHOSPHORUS LEVEL AM 08/26/2021 8:10 Results for this AM CDT procedure are i n the results section. MAGNESIUM LEVEL AM 08/26/2021 8:10 Results for this AM CDT procedure are i n the results section. BASIC METABOLIC PANEL, AM 08/26/2021 8:10 CALCIUM TOTAL AM CDT TRANSFUSE RED BLOOD Routine 08/26/2021 4:17 CELLS AM CDT TRANSFUSE RED BLOOD Routine 08/26/2021 12:58 CELLS AM CDT POC GLUCOSE SCREEN Routine 08/25/2021 11:03 Resul ts for this PM CDT procedure are i n the results section. CONFIRM ABORH TYPE Now 08/25/2021 6:19 Resul ts for this PM CDT procedure are i n the results section. TMP CROSSMATCH Now 08/25/2021 6:15 Results f or this INTERPRETATION PM CDT procedure are in the results section. TMP INTERPRETATION Routine 08/25/2021 6:15 Resul ts for this ANTIBODY SCREEN PM CDT procedure ar e in NEGATIVE the results section. CLOT EXPIRATION DATE Routine 08/25/2021 6:15 Res ults for this PM CDT procedure are i n the results section. FRACTIONATED BILIRUBIN Now 08/25/2021 6:15 R esults for this PM CDT procedure are i n the results section. TOTAL PROTEIN Now 08/25/2021 6:15 Results fo r this PM CDT procedure are i n the results section. ASPARTATE Now 08/25/2021 6:15 Results for this AMINOTRANSFERASE PM CDT procedure a re in the results section. ALANINE Now 08/25/2021 6:15 Results for this AMINOTRANSFERASE PM CDT procedure a re in the results section. ALKALINE PHOSPHATASE Now 08/25/2021 6:15 Res ults for this PM CDT procedure are i n the results section. ALBUMIN LEVEL Now 08/25/2021 6:15 Results fo r this PM CDT procedure are i n the results section. CALCIUM LEVEL TOTAL Now 08/25/2021 6:15 Resu lts for this PM CDT procedure are i n the results section. .GLOMERULAR FILTRATION Now 08/25/2021 6:15 R esults for this RATE PM CDT procedure are i n the results section. SERUM CREATININE Now 08/25/2021 6:15 Results for this PM CDT procedure are i n the results section. ELECTROLYTE PANEL Now 08/25/2021 6:15 Result s for this PM CDT procedure are i n the results section. ANTIBODY SCREEN Now 08/25/2021 6:15 Results for this PM CDT procedure are i n the results section. BLOOD UREA NITROGEN Now 08/25/2021 6:15 Resu lts for this PM CDT procedure are i n the results section. GLUCOSE LEVEL Now 08/25/2021 6:15 Results fo r this PM CDT procedure are i n the results section. ABORH Now 08/25/2021 6:15 Results for this PM CDT procedure are i n the results section. APTT Now 08/25/2021 6:15 Results for this PM CDT procedure are i n the results section. PROTHROMBIN TIME Now 08/25/2021 6:15 Results for this PM CDT procedure are i n the results section. PHOSPHORUS LEVEL Now 08/25/2021 6:15 Results for this PM CDT procedure are i n the results section. MAGNESIUM LEVEL Now 08/25/2021 6:15 Results for this PM CDT procedure are i n the results section. COMPREHENSIVE METABOLIC Now 08/25/2021 6:15 PANEL PM CDT TYPE AND SCREEN Now 08/25/2021 6:15 PM CDT COVID-19 (SARS-COV-2) Now 08/25/2021 6:15 Re sults for this ASYMPTOMATIC-LT PM CDT procedure ar e in the results section. PRBC PRODUCT READY FOR Routine 08/25/2021 4:47 R esults for this DIGITAL COLOR PRESS OPERATOR PM CDT procedure are i n the results section. PREPARE RBC Routine 08/25/2021 4:47 Results for this PM CDT procedure are i n the results section. 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 COVID-19 (SARS-COV-2) Routine 08/20/2021 2:44 Suspected COVID -19 Results for this PCR-ASYMPTOMATIC MC PM CDT procedur e are in the results section. POC GLUCOSE SCREEN Routine 07/12/2021 5:42 Resul ts for this PM KNITTING INSPECTOR procedure are i n the results section. CALCIUM LEVEL TOTAL Routine 07/12/2021 3:09 Resu lts for this PM KNITTING INSPECTOR procedure are i n the results section. .GLOMERULAR FILTRATION Routine 07/12/2021 3:09 R esults for this RATE PM KNITTING INSPECTOR procedure are i n the results section. SERUM CREATININE Routine 07/12/2021 3:09 Results for this PM KNITTING INSPECTOR procedure are i n the results section. ELECTROLYTE PANEL Routine 07/12/2021 3:09 Result s for this PM KNITTING INSPECTOR procedure are i n the results section. BLOOD UREA NITROGEN Routine 07/12/2021 3:09 Resu lts for this PM KNITTING INSPECTOR procedure are i n the results section. GLUCOSE LEVEL Routine 07/12/2021 3:09 Results fo r this PM KNITTING INSPECTOR procedure are i n the results section. PHOSPHORUS LEVEL Routine 07/12/2021 3:09 Results for this PM KNITTING INSPECTOR procedure are i n the results section. MAGNESIUM LEVEL Routine 07/12/2021 3:09 Results for this PM KNITTING INSPECTOR procedure are i n the results section. BASIC METABOLIC PANEL, Routine 07/12/2021 3:09 CALCIUM TOTAL PM KNITTING INSPECTOR POC GLUCOSE SCREEN Routine 07/12/2021 1:45 Resul ts for this PM KNITTING INSPECTOR procedure are i n the results section. POC GLUCOSE SCREEN Routine 07/12/2021 9:40 Resul ts for this AM KNITTING INSPECTOR procedure are i n the results section. MANUAL DIFFERENTIAL AM 07/12/2021 1:56 Resu lts for this AM KNITTING INSPECTOR procedure are i n the results section. Results CBC AM 07/12/2021 1:56 Results for this AM KNITTING INSPECTOR procedure are i n the results section. CALCIUM LEVEL TOTAL Routine 07/12/2021 1:56 Resu lts for this AM KNITTING INSPECTOR procedure are i n the results section. .GLOMERULAR FILTRATION Routine 07/12/2021 1:56 R esults for this RATE AM KNITTING INSPECTOR procedure are i n the results section. SERUM CREATININE Routine 07/12/2021 1:56 Results for this AM KNITTING INSPECTOR procedure are i n the results section. ELECTROLYTE PANEL Routine 07/12/2021 1:56 Result s for this AM KNITTING INSPECTOR procedure are i n the results section. BLOOD UREA NITROGEN Routine 07/12/2021 1:56 Resu lts for this AM KNITTING INSPECTOR procedure are i n the results section. GLUCOSE LEVEL Routine 07/12/2021 1:56 Results fo r this AM K[employer]ITTING INSPECTOR procedure are i n the results section. PHOSPHORUS LEVEL Routine 07/12/2021 1:56 Results for this AM KNITTING INSPECTOR procedure are i n the results section. MAGNESIUM LEVEL Routine 07/12/2021 1:56 Results for this AM KNITTING INSPECTOR procedure are i n the results section. BASIC METABOLIC PANEL, Routine 07/12/2021 1:56 CALCIUM TOTAL AM KNITTING INSPECTOR COMPLETE BLOOD COUNT W/ AM 07/12/2021 1:56 DIFFERENTIAL AM KNITTING INSPECTOR POC GLUCOSE SCREEN Routine 07/11/2021 10:09 Resul ts for this PM KNITTING INSPECTOR procedure are i n the results section. POC GLUCOSE SCREEN Routine 07/11/2021 8:52 Resul ts for this PM KNITTING INSPECTOR procedure are i n the results section. POC GLUCOSE SCREEN Routine 07/11/2021 4:27 Resul ts for this PM [employer]ITTING INSPECTOR procedure are i n the results section. ECHOCARDIOGRAM 2D Routine 07/11/2021 4:16 Result s for this COMPLETE PM KNITTING INSPECTOR procedure are i n the results section. CALCIUM LEVEL TOTAL Routine 07/11/2021 2:33 Resu lts for this PM KNITTING INSPECTOR procedure are i n the results section. .GLOMERULAR FILTRATION Routine 07/11/2021 2:33 R esults for this RATE PM KNITTING INSPECTOR procedure are i n the results section. SERUM CREATININE Routine 07/11/2021 2:33 Results for this PM KNITTING INSPECTOR procedure are i n the results section. ELECTROLYTE PANEL Routine 07/11/2021 2:33 Result s for this PM KNITTING INSPECTOR procedure are i n the results section. BLOOD UREA NITROGEN Routine 07/11/2021 2:33 Resu lts for this PM KNITTING INSPECTOR procedure are i n the results section. GLUCOSE LEVEL Routine 07/11/2021 2:33 Results fo r this PM KNITTING INSPECTOR procedure are i n the results section. PHOSPHORUS LEVEL Routine 07/11/2021 2:33 Results for this PM KNITTING INSPECTOR procedure are i n the results section. MAGNESIUM LEVEL Routine 07/11/2021 2:33 Results for this PM KNITTING INSPECTOR procedure are i n the results section. BASIC METABOLIC PANEL, Routine 07/11/2021 2:33 CALCIUM TOTAL PM KNITTING INSPECTOR POC GLUCOSE SCREEN Routine 07/11/2021 12:33 Resul ts for this PM KNITTING INSPECTOR procedure are i n the results section. POC GLUCOSE SCREEN Routine 07/11/2021 8:52 Resul ts for this AM KNITTING INSPECTOR procedure are i n the results section. CALCIUM LEVEL TOTAL Routine 07/11/2021 2:00 Resu lts for this AM KNITTING INSPECTOR procedure are i n the results section. .GLOMERULAR FILTRATION Routine 07/11/2021 2:00 R esults for this RATE AM KNITTING INSPECTOR procedure are i n the results section. SERUM CREATININE Routine 07/11/2021 2:00 Results for this AM KNITTING INSPECTOR procedure are i n the results section. ELECTROLYTE PANEL Routine 07/11/2021 2:00 Result s for this AM KNITTING INSPECTOR procedure are i n the results section. BLOOD UREA NITROGEN Routine 07/11/2021 2:00 Resu lts for this AM KNITTING INSPECTOR procedure are i n the results section. GLUCOSE LEVEL Routine 07/11/2021 2:00 Results fo r this AM KNITTING INSPECTOR procedure are i n the results section. PHOSPHORUS LEVEL Routine 07/11/2021 2:00 Results for this AM KNITTING INSPECTOR procedure are i n the results section. MAGNESIUM LEVEL Routine 07/11/2021 2:00 Results for this AM KNITTING INSPECTOR procedure are i n the results section. BASIC METABOLIC PANEL, Routine 07/11/2021 2:00 CALCIUM TOTAL AM KNITTING INSPECTOR MANUAL DIFFERENTIAL AM 07/11/2021 1:46 Resu lts for this AM KNITTING INSPECTOR procedure are i n the results section. Results CBC AM 07/11/2021 1:46 Results for this AM KNITTING INSPECTOR procedure are i n the results section. COMPLETE BLOOD COUNT W/ AM 07/11/2021 1:46 DIFFERENTIAL AM KNITTING INSPECTOR EKG, 12-LEAD (PORTABLE) Routine 07/11/2021 EKG, 12-LEAD (PORTABLE) STAT 07/11/2021 POC GLUCOSE SCREEN Routine 07/10/2021 9:45 Resul ts for this PM KNITTING INSPECTOR procedure are i n the results section. POC GLUCOSE SCREEN Routine 07/10/2021 7:36 Resul ts for this PM KNITTING INSPECTOR procedure are i n the results section. POC GLUCOSE SCREEN Routine 07/10/2021 4:26 Resul ts for this PM KNITTING INSPECTOR procedure are i n the results section. CALCIUM LEVEL TOTAL Routine 07/10/2021 3:02 Resu lts for this PM KNITTING INSPECTOR procedure are i n the results section. .GLOMERULAR FILTRATION Routine 07/10/2021 3:02 R esults for this RATE PM KNITTING INSPECTOR procedure are i n the results section. SERUM CREATININE Routine 07/10/2021 3:02 Results for this PM KNITTING INSPECTOR procedure are i n the results section. ELECTROLYTE PANEL Routine 07/10/2021 3:02 Result s for this PM KNITTING INSPECTOR procedure are i n the results section. BLOOD UREA NITROGEN Routine 07/10/2021 3:02 Resu lts for this PM KNITTING INSPECTOR procedure are i n the results section. GLUCOSE LEVEL Routine 07/10/2021 3:02 Results fo r this PM KNITTING INSPECTOR procedure are i n the results section. PHOSPHORUS LEVEL Routine 07/10/2021 3:02 Results for this PM [employer] procedure are i n the results section. MAGNESIUM LEVEL Routine 07/10/2021 3:02 Results for this PM [employer] procedure are i n the results section. BASIC METABOLIC PANEL, Routine 07/10/2021 3:02 CALCIUM TOTAL PM [employer] POC GLUCOSE SCREEN Routine 07/10/2021 11:40 Resul ts for this AM [employer] procedure are i n the results section. MANUAL DIFFERENTIAL AM 07/10/2021 6:09 Resu lts for this AM [employer] procedure are i n the results section. Results CBC AM 07/10/2021 6:09 Results for this AM [employer] procedure are i n the results section. CALCIUM LEVEL TOTAL Routine 07/10/2021 6:09 Resu lts for this AM [employer] procedure are i n the results section. .GLOMERULAR FILTRATION Routine 07/10/2021 6:09 R esults for this RATE AM [employer] procedure are i n the results section. SERUM CREATININE Routine 07/10/2021 6:09 Results for this AM [employer] procedure are i n the results section. ELECTROLYTE PANEL Routine 07/10/2021 6:09 Result s for this AM [employer] procedure are i n the results section. BLOOD UREA NITROGEN Routine 07/10/2021 6:09 Resu lts for this AM [employer] procedure are i n the results section. GLUCOSE LEVEL Routine 07/10/2021 6:09 Results fo r this AM [employer] procedure are i n the results section. TROPONIN T AM 07/10/2021 6:09 Results for this AM [employer] procedure are i n the results section. PHOSPHORUS LEVEL Routine 07/10/2021 6:09 Results for this AM [employer] procedure are i n the results section. MAGNESIUM LEVEL Routine 07/10/2021 6:09 Results for this AM [employer] procedure are i n the results section. BASIC METABOLIC PANEL, Routine 07/10/2021 6:09 CALCIUM TOTAL AM [employer] COMPLETE BLOOD COUNT W/ AM 07/10/2021 6:09 DIFFERENTIAL AM [employer] POC GLUCOSE SCREEN Routine 07/09/2021 11:11 Resul ts for this PM [employer] procedure are i n the results section. BLOOD UREA NITROGEN STAT 07/09/2021 10:35 Resu lts for this PM [employer] procedure are i n the results section. CALCIUM IONIZED, VENOUS STAT 07/09/2021 10:35 Results for this PM [employer] procedure are i n the results section. .GLOMERULAR FILTRATION STAT 07/09/2021 10:35 R esults for this RATE PM [employer] procedure are i n the results section. SERUM CREATININE STAT 07/09/2021 10:35 Results for this PM [employer] procedure are i n the results section. ELECTROLYTE PANEL STAT 07/09/2021 10:35 Result s for this PM [employer] procedure are i n the results section. GLUCOSE LEVEL STAT 07/09/2021 10:35 Results fo r this PM [employer] procedure are i n the results section. TROPONIN T STAT 07/09/2021 10:35 Results for this PM [employer] procedure are i n the results section. PHOSPHORUS LEVEL STAT 07/09/2021 10:35 Results for this PM [employer] procedure are i n the results section. MAGNESIUM LEVEL STAT 07/09/2021 10:35 Results for this PM [employer] procedure are i n the results section. BASIC METABOLIC PANEL, STAT 07/09/2021 10:35 CALCIUM IONIZED PM [employer] LOWER RESPIRATORY Now 07/09/2021 5:33 Result s for this CULTURE W/ GRAM STAIN PM [employer] proced ure are in the results section. POC GLUCOSE SCREEN Routine 07/09/2021 4:30 Resul ts for this PM [employer] procedure are i n the results section. VASCULAR ACCESS Routine 07/09/2021 3:00 Results for this ULTRASOUND PM [employer] procedure are i n the results section. CALCIUM LEVEL TOTAL Routine 07/09/2021 1:45 Resu lts for this PM [employer] procedure are i n the results section. .GLOMERULAR FILTRATION Routine 07/09/2021 1:45 R esults for this RATE PM [employer] procedure are i n the results section. SERUM CREATININE Routine 07/09/2021 1:45 Results for this PM [employer] procedure are i n the results section. ELECTROLYTE PANEL Routine 07/09/2021 1:45 Result s for this PM [employer] procedure are i n the results section. BLOOD UREA NITROGEN Routine 07/09/2021 1:45 Resu lts for this PM [employer] procedure are i n the results section. GLUCOSE LEVEL Routine 07/09/2021 1:45 Results fo r this PM [employer] procedure are i n the results section. PHOSPHORUS LEVEL Routine 07/09/2021 1:45 Results for this PM [employer] procedure are i n the results section. MAGNESIUM LEVEL Routine 07/09/2021 1:45 Results for this PM [employer] procedure are i n the results section. BASIC METABOLIC PANEL, Routine 07/09/2021 1:45 CALCIUM TOTAL PM [employer]OR OSCILLATORY PEP Routine 07/09/2021 1:21 PM [employer]ING [employer]OR OSCILLATORY PEP Routine 07/09/2021 1:21 PM [employer]ING [employer]OR OSCILLATORY PEP Routine 07/09/2021 1:21 PM [employer]OR POC GLUCOSE SCREEN Routine 07/09/2021 12:42 Resul ts for this PM [employer] procedure are i n the results section. POC GLUCOSE SCREEN Routine 07/09/2021 8:56 Resul ts for this AM [employer] procedure are i n the results section. MANUAL DIFFERENTIAL AM 07/09/2021 6:28 Resu lts for this AM [employer] procedure are i n the results section. Results CBC AM 07/09/2021 6:28 Results for this AM [employer] procedure are i n the results section. CALCIUM LEVEL TOTAL AM 07/09/2021 6:28 Resu lts for this AM [employer] procedure are i n the results section. .GLOMERULAR FILTRATION AM 07/09/2021 6:28 R esults for this RATE AM [employer] procedure are i n the results section. SERUM CREATININE AM 07/09/2021 6:28 Results for this AM [employer] procedure are i n the results section. ELECTROLYTE PANEL AM 07/09/2021 6:28 Result s for this AM [employer] procedure are i n the results section. BLOOD UREA NITROGEN AM 07/09/2021 6:28 Resu lts for this AM [employer] procedure are i n the results section. GLUCOSE LEVEL AM 07/09/2021 6:28 Results fo r this AM [employer] procedure are i n the results section. PHOSPHORUS LEVEL AM 07/09/2021 6:28 Results for this AM [employer] procedure are i n the results section. MAGNESIUM LEVEL AM 07/09/2021 6:28 Results for this AM [employer] procedure are i n the results section. COMPLETE BLOOD COUNT W/ AM 07/09/2021 6:28 DIFFERENTIAL AM [employer] BASIC METABOLIC PANEL, AM 07/09/2021 6:28 CALCIUM TOTAL AM [employer]OR TROPONIN T Routine 07/09/2021 6:28 Results for this AM [employer] procedure are i n the results section. POC GLUCOSE SCREEN Routine 07/08/2021 10:08 Resul ts for this PM [employer] procedure are i n the results section. POC GLUCOSE SCREEN Routine 07/08/2021 5:49 Resul ts for this PM [employer] procedure are i n the results section. STREPTOCOCCAL URINE Routine 07/08/2021 5:17 Resu lts for this ANTIGEN PATH REVIEW PM [employer] procedur e are in the results section. LEGIONELLA URINE Routine 07/08/2021 5:17 Results for this ANTIGEN PATH REVIEW PM [employer] procedur e are in the results section. LEGIONELLA URINE Now 07/08/2021 5:17 Results for this ANTIGEN PM [employer] procedure are i n the results section. STREPTOCOCCUS Now 07/08/2021 5:17 Results fo r this PNEUMONIAE URINE PM [employer] procedure a re in ANTIGEN the results section. GENERAL LABORATORY ADD Now 07/08/2021 3:35 R esults for this ON TEST PM [employer] procedure are i n the results section. MRSA SCREENING CULTURE Now 07/08/2021 3:23 R esults for this PM [employer] procedure are i n the results section. CT CHEST PULMONARY Routine 07/08/2021 1:38 Resul ts for this EMBOLISM W CONTRAST PM [employer] procedur e are in the results section. XR ABDOMEN AP Routine 07/08/2021 1:31 Results fo r this PM [employer] procedure are i n the results section. POC CRITICAL Routine 07/08/2021 12:14 Results for this PM [employer] procedure are i n the results section. POC CHEM 8 Routine 07/08/2021 12:14 Results for this PM [employer] procedure are i n the results section. PROCALCITONIN Now 07/08/2021 12:13 Results fo r this PM [employer] procedure are i n the results section. FRACTIONATED BILIRUBIN Now 07/08/2021 12:13 R esults for this PM [employer] procedure are i n the results section. TOTAL PROTEIN Now 07/08/2021 12:13 Results fo r this PM [employer] procedure are i n the results section. ASPARTATE Now 07/08/2021 12:13 Results for this AMINOTRANSFERASE PM [employer] procedure a re in the results section. ALANINE Now 07/08/2021 12:13 Results for this AMINOTRANSFERASE PM [employer] procedure a re in the results section. ALKALINE PHOSPHATASE Now 07/08/2021 12:13 Res ults for this PM [employer] procedure are i n the results section. ALBUMIN LEVEL Now 07/08/2021 12:13 Results fo r this PM [employer] procedure are i n the results section. CALCIUM LEVEL TOTAL Now 07/08/2021 12:13 Resu lts for this PM [employer] procedure are i n the results section. .GLOMERULAR FILTRATION Now 07/08/2021 12:13 R esults for this RATE PM [employer] procedure are i n the results section. SERUM CREATININE Now 07/08/2021 12:13 Results for this PM [employer] procedure are i n the results section. ELECTROLYTE PANEL Now 07/08/2021 12:13 Result s for this PM [employer] procedure are i n the results section. BLOOD UREA NITROGEN Now 07/08/2021 12:13 Resu lts for this PM [employer] procedure are i n the results section. GLUCOSE LEVEL Now 07/08/2021 12:13 Results fo r this PM [employer] procedure are i n the results section. MANUAL DIFFERENTIAL STAT 07/08/2021 12:13 Resu lts for this PM [employer] procedure are i n the results section. Results CBC STAT 07/08/2021 12:13 Results for this PM [employer] procedure are i n the results section. CARDIAC PANEL Timed Study 07/08/2021 12:13 Results fo r this PM [employer] procedure are i n the results section. D DIMER Now 07/08/2021 12:13 Results for this PM [employer] procedure are i n the results section. APTT Now 07/08/2021 12:13 Results for this PM [employer] procedure are i n the results section. PROTHROMBIN TIME Now 07/08/2021 12:13 Results for this PM [employer] procedure are i n the results section. PHOSPHORUS LEVEL Now 07/08/2021 12:13 Results for this PM [employer] procedure are i n the results section. MAGNESIUM LEVEL Now 07/08/2021 12:13 Results for this PM [employer] procedure are i n the results section. COMPREHENSIVE METABOLIC Now 07/08/2021 12:13 PANEL PM [employer] COMPLETE BLOOD COUNT W/ Now 07/08/2021 12:13 DIFFERENTIAL PM [employer] XR CHEST 1 VW Routine 07/08/2021 11:38 Results fo r this AM [employer] procedure are i n the results section. COVID-19 (SARS-COV-2) Now 07/08/2021 11:23 Re sults for this ASYMPTOMATIC-LT AM [employer] procedure ar e in the results section. CT HEAD WO CONTRAST Routine 07/08/2021 11:05 Resu lts for this AM [employer] procedure are i n the results section. POC GLUCOSE SCREEN Routine 07/08/2021 10:47 Resul ts for this AM [employer] procedure are i n the results section. 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 Results CBC Routine 07/04/2021 11:10 Primary squamous Results for this AM [employer] cell carcinoma of procedure are in larynx the results section. FRACTIONATED BILIRUBIN Routine 07/04/2021 11:10 Primary squamo us Results for this AM [employer]OR cell carcinoma of procedure are in larynx the results section. TOTAL PROTEIN Routine 07/04/2021 11:10 Primary squamous Result s for this AM [employer] cell carcinoma of procedure are in larynx the results section. ASPARTATE Routine 07/04/2021 11:10 Primary squamous Results for this AMINOTRANSFERASE AM [employer]ING [employer]PECTOR cell carcinoma of proced ure are in larynx the results section. ALANINE Routine 07/04/2021 11:10 Primary squamous Results for this AMINOTRANSFERASE AM [employer]OR cell carcinoma of proced ure are in larynx the results section. ALKALINE PHOSPHATASE Routine 07/04/2021 11:10 Primary squamous Results for this AM [employer] cell carcinoma of procedure are in larynx the results section. ALBUMIN LEVEL Routine 07/04/2021 11:10 Primary squamous Result s for this AM [employer] cell carcinoma of procedure are in larynx the results section. CALCIUM LEVEL TOTAL Routine 07/04/2021 11:10 Primary squamous Results for this AM [employer] cell carcinoma of procedure are in larynx the results section. .GLOMERULAR FILTRATION Routine 07/04/2021 11:10 Primary squamo us Results for this RATE AM [employer] cell carcinoma of procedure are in larynx the results section. SERUM CREATININE Routine 07/04/2021 11:10 Primary squamous Res ults for this AM [employer] cell carcinoma of procedure are in larynx the results section. ELECTROLYTE PANEL Routine 07/04/2021 11:10 Primary squamous Re sults for this AM [employer] cell carcinoma of procedure are in larynx the results section. BLOOD UREA NITROGEN Routine 07/04/2021 11:10 Primary squamous Results for this AM [employer] cell carcinoma of procedure are in larynx the results section. GLUCOSE LEVEL Routine 07/04/2021 11:10 Primary squamous Result s for this AM [employer] cell carcinoma of procedure are in larynx the results section. PHOSPHORUS LEVEL Routine 07/04/2021 11:10 Primary squamous Res ults for this AM [employer] cell carcinoma of procedure are in larynx the results section. MAGNESIUM LEVEL Routine 07/04/2021 11:10 Primary squamous Resu lts for this AM [employer]OR cell carcinoma of procedure are in larynx the results section. COMPLETE BLOOD COUNT W/ Routine 07/04/2021 11:10 Primary squam ous DIFFERENTIAL AM [employer] cell carcinoma of larynx COMPREHENSIVE METABOLIC Routine 07/04/2021 11:10 Primary squam ous PANEL AM [employer] cell carcinoma of larynx MANUAL DIFFERENTIAL Routine 06/27/2021 8:00 Primary squamous Results for this AM [employer] cell carcinoma of procedure are in larynx the results section. Results CBC Routine 06/27/2021 8:00 Primary squamous Results for this AM [employer] cell carcinoma of procedure are in larynx the results section. FRACTIONATED BILIRUBIN Routine 06/27/2021 8:00 Primary squamo us Results for this AM [employer] cell carcinoma of procedure are in larynx the results section. TOTAL PROTEIN Routine 06/27/2021 8:00 Primary squamous Result s for this AM [employer] cell carcinoma of procedure are in larynx the results section. ASPARTATE Routine 06/27/2021 8:00 Primary squamous Results for this AMINOTRANSFERASE AM [employer]ING INSPECTOR cell carcinoma of proced ure are in larynx the results section. ALANINE Routine 06/27/2021 8:00 Primary squamous Results for this AMINOTRANSFERASE AM [employer]ING INSPECTOR cell carcinoma of proced ure are in larynx the results section. ALKALINE PHOSPHATASE Routine 06/27/2021 8:00 Primary squamous Results for this AM [employer]OR cell carcinoma of procedure are in larynx the results section. ALBUMIN LEVEL Routine 06/27/2021 8:00 Primary squamous Result s for this AM [employer] cell carcinoma of procedure are in larynx the results section. CALCIUM LEVEL TOTAL Routine 06/27/2021 8:00 Primary squamous Results for this AM [employer] cell carcinoma of procedure are in larynx the results section. .GLOMERULAR FILTRATION Routine 06/27/2021 8:00 Primary squamo us Results for this RATE AM [employer]PECTOR cell carcinoma of procedure are in larynx the results section. SERUM CREATININE Routine 06/27/2021 8:00 Primary squamous Res ults for this AM [employer] cell carcinoma of procedure are in larynx the results section. ELECTROLYTE PANEL Routine 06/27/2021 8:00 Primary squamous Re sults for this AM [employer] cell carcinoma of procedure are in larynx the results section. BLOOD UREA NITROGEN Routine 06/27/2021 8:00 Primary squamous Results for this AM [employer] cell carcinoma of procedure are in larynx the results section. GLUCOSE LEVEL Routine 06/27/2021 8:00 Primary squamous Result s for this AM [employer] cell carcinoma of procedure are in larynx the results section. PHOSPHORUS LEVEL Routine 06/27/2021 8:00 Primary squamous Res ults for this AM [employer] cell carcinoma of procedure are in larynx the results section. MAGNESIUM LEVEL Routine 06/27/2021 8:00 Primary squamous Resu lts for this AM [employer]OR cell carcinoma of procedure are in larynx the results section. COMPLETE BLOOD COUNT W/ Routine 06/27/2021 8:00 Primary squam ous DIFFERENTIAL AM [employer]PECTOR cell carcinoma of larynx COMPREHENSIVE METABOLIC Routine 06/27/2021 8:00 Primary squam ous PANEL AM [employer]OR cell carcinoma of larynx TROPONIN T STAT 06/22/2021 3:45 Results for this PM [employer] procedure are i n the results section. FRACTIONATED BILIRUBIN Now 06/22/2021 11:54 R esults for this AM [employer] procedure are i n the results section. TOTAL PROTEIN Now 06/22/2021 11:54 Results fo r this AM [employer] procedure are i n the results section. ASPARTATE Now 06/22/2021 11:54 Results for this AMINOTRANSFERASE AM [employer]ING INSPECTOR procedure a re in the results section. ALANINE Now 06/22/2021 11:54 Results for this AMINOTRANSFERASE AM [employer]ING [employer]PECTOR procedure a re in the results section. ALKALINE PHOSPHATASE Now 06/22/2021 11:54 Res ults for this AM [employer] procedure are i n the results section. ALBUMIN LEVEL Now 06/22/2021 11:54 Results fo r this AM [employer] procedure are i n the results section. CALCIUM LEVEL TOTAL Now 06/22/2021 11:54 Resu lts for this AM [employer] procedure are i n the results section. .GLOMERULAR FILTRATION Now 06/22/2021 11:54 R esults for this RATE AM [employer] procedure are i n the results section. SERUM CREATININE Now 06/22/2021 11:54 Results for this AM [employer] procedure are i n the results section. ELECTROLYTE PANEL Now 06/22/2021 11:54 Result s for this AM [employer] procedure are i n the results section. BLOOD UREA NITROGEN Now 06/22/2021 11:54 Resu lts for this AM [employer] procedure are i n the results section. GLUCOSE LEVEL Now 06/22/2021 11:54 Results fo r this AM [employer] procedure are i n the results section. MANUAL DIFFERENTIAL STAT 06/22/2021 11:54 Resu lts for this AM [employer] procedure are i n the results section. Results CBC STAT 06/22/2021 11:54 Results for this AM [employer] procedure are i n the results section. CKMB Now 06/22/2021 11:54 Results for this AM [employer] procedure are i n the results section. CREATINE KINASE Now 06/22/2021 11:54 Results for this AM [employer] procedure are i n the results section. NT PRO BNP Now 06/22/2021 11:54 Results for this AM [employer] procedure are i n the results section. PHOSPHORUS LEVEL Now 06/22/2021 11:54 Results for this AM [employer] procedure are i n the results section. MAGNESIUM LEVEL Now 06/22/2021 11:54 Results for this AM [employer] procedure are i n the results section. COMPREHENSIVE METABOLIC Now 06/22/2021 11:54 PANEL AM [employer]ING [employer]PECTOR COMPLETE BLOOD COUNT W/ Now 06/22/2021 11:54 DIFFERENTIAL AM [employer]OR COVID-19 (SARS-COV-2) Now 06/22/2021 11:54 Re sults for this ASYMPTOMATIC-LT AM [employer] procedure ar e in the results section. EKG, 12-LEAD (PORTABLE) Routine 06/22/2021 EKG, 12-LEAD (PORTABLE) STAT 06/22/2021 CT HEAD/NECK SIMULATION Routine 06/21/2021 9:00 Primary squam ous Results for this WO CONTRAST (RO) AM [employer]ING [employer] cell carcinoma of proced ure are in larynx the results section. MANUAL DIFFERENTIAL Routine 06/20/2021 8:07 Primary squamous Results for this AM [employer] cell carcinoma of procedure are in larynx the results section. Results CBC Routine 06/20/2021 8:07 Primary squamous Results for this AM [employer] cell carcinoma of procedure are in larynx the results section. FRACTIONATED BILIRUBIN Routine 06/20/2021 8:07 Primary squamo us Results for this AM [employer]PECTOR cell carcinoma of procedure are in larynx the results section. TOTAL PROTEIN Routine 06/20/2021 8:07 Primary squamous Result s for this AM [employer] cell carcinoma of procedure are in larynx the results section. ASPARTATE Routine 06/20/2021 8:07 Primary squamous Results for this AMINOTRANSFERASE AM [employer]ING INSPECTOR cell carcinoma of proced ure are in larynx the results section. ALANINE Routine 06/20/2021 8:07 Primary squamous Results for this AMINOTRANSFERASE AM [employer]ING INSPECTOR cell carcinoma of proced ure are in larynx the results section. ALKALINE PHOSPHATASE Routine 06/20/2021 8:07 Primary squamous Results for this AM [employer]PECTOR cell carcinoma of procedure are in larynx the results section. ALBUMIN LEVEL Routine 06/20/2021 8:07 Primary squamous Result s for this AM [employer] cell carcinoma of procedure are in larynx the results section. CALCIUM LEVEL TOTAL Routine 06/20/2021 8:07 Primary squamous Results for this AM [employer] cell carcinoma of procedure are in larynx the results section. .GLOMERULAR FILTRATION Routine 06/20/2021 8:07 Primary squamo us Results for this RATE AM [employer]OR cell carcinoma of procedure are in larynx the results section. SERUM CREATININE Routine 06/20/2021 8:07 Primary squamous Res ults for this AM [employer]PECT[employer] cell carcinoma of procedure are in larynx the results section. ELECTROLYTE PANEL Routine 06/20/2021 8:07 Primary squamous Re sults for this AM [employer] cell carcinoma of procedure are in larynx the results section. BLOOD UREA NITROGEN Routine 06/20/2021 8:07 Primary squamous Results for this AM [employer] cell carcinoma of procedure are in larynx the results section. GLUCOSE LEVEL Routine 06/20/2021 8:07 Primary squamous Result s for this AM [employer] cell carcinoma of procedure are in larynx the results section. PHOSPHORUS LEVEL Routine 06/20/2021 8:07 Primary squamous Res ults for this AM [employer]PECT[employer] cell carcinoma of procedure are in larynx the results section. MAGNESIUM LEVEL Routine 06/20/2021 8:07 Primary squamous Resu lts for this AM [employer]PECTOR cell carcinoma of procedure are in larynx the results section. COMPLETE BLOOD COUNT W/ Routine 06/20/2021 8:07 Primary squam ous DIFFERENTIAL AM [employer]ING [employer]PECTOR cell carcinoma of larynx COMPREHENSIVE METABOLIC Routine 06/20/2021 8:07 Primary squam ous PANEL AM [employer]ING [employer]PECTOR cell carcinoma of larynx MANUAL DIFFERENTIAL Routine 06/13/2021 7:00 Primary squamous Results for this AM [employer] cell carcinoma of procedure are in larynx the results section. Results CBC Routine 06/13/2021 7:00 Primary squamous Results for this AM [employer] cell carcinoma of procedure are in larynx the results section. FRACTIONATED BILIRUBIN Routine 06/13/2021 7:00 Primary squamo us Results for this AM [employer]PECTOR cell carcinoma of procedure are in larynx the results section. TOTAL PROTEIN Routine 06/13/2021 7:00 Primary squamous Result s for this AM [employer]PECT[employer] cell carcinoma of procedure are in larynx the results section. ASPARTATE Routine 06/13/2021 7:00 Primary squamous Results for this AMINOTRANSFERASE AM [employer]ITTING INSPECTOR cell carcinoma of proced ure are in larynx the results section. ALANINE Routine 06/13/2021 7:00 Primary squamous Results for this AMINOTRANSFERASE AM [employer]ITTING INSPECTOR cell carcinoma of proced ure are in larynx the results section. ALKALINE PHOSPHATASE Routine 06/13/2021 7:00 Primary squamous Results for this AM [employer]ING [employer]PECTOR cell carcinoma of procedure are in larynx the results section. ALBUMIN LEVEL Routine 06/13/2021 7:00 Primary squamous Result s for this AM [employer] cell carcinoma of procedure are in larynx the results section. CALCIUM LEVEL TOTAL Routine 06/13/2021 7:00 Primary squamous Results for this AM [employer]ITTING INSPECTOR cell carcinoma of procedure are in larynx the results section. .GLOMERULAR FILTRATION Routine 06/13/2021 7:00 Primary squamo us Results for this RATE AM [employer]NITTING INSPECTOR cell carcinoma of procedure are in larynx the results section. SERUM CREATININE Routine 06/13/2021 7:00 Primary squamous Res ults for this AM [employer]ITTING INSPECTOR cell carcinoma of procedure are in larynx the results section. ELECTROLYTE PANEL Routine 06/13/2021 7:00 Primary squamous Re sults for this AM [employer]ITTING INSPECTOR cell carcinoma of procedure are in larynx the results section. BLOOD UREA NITROGEN Routine 06/13/2021 7:00 Primary squamous Results for this AM [employer]ITTING INSPECTOR cell carcinoma of procedure are in larynx the results section. GLUCOSE LEVEL Routine 06/13/2021 7:00 Primary squamous Result s for this AM [employer]ITTING INSPECTOR cell carcinoma of procedure are in larynx the results section. PHOSPHORUS LEVEL Routine 06/13/2021 7:00 Primary squamous Res ults for this AM [employer]ITTING INSPECTOR cell carcinoma of procedure are in larynx the results section. MAGNESIUM LEVEL Routine 06/13/2021 7:00 Primary squamous Resu lts for this AM [employer]ITTING INSPECTOR cell carcinoma of procedure are in larynx the results section. COMPLETE BLOOD COUNT W/ Routine 06/13/2021 7:00 Primary squam ous DIFFERENTIAL AM [employer]ITTING INSPECTOR cell carcinoma of larynx COMPREHENSIVE METABOLIC Routine 06/13/2021 7:00 Primary squam ous PANEL AM [employer]NITTING INSPECTOR cell carcinoma of larynx MANUAL DIFFERENTIAL Routine 06/06/2021 6:58 Primary squamous Results for this AM [employer]ITTING INSPECTOR cell carcinoma of procedure are in larynx the results section. Results CBC Routine 06/06/2021 6:58 Primary squamous Results for this AM [employer]ITTING INSPECTOR cell carcinoma of procedure are in larynx the results section. FRACTIONATED BILIRUBIN Routine 06/06/2021 6:58 Primary squamo us Results for this AM [employer]ITTING INSPECTOR cell carcinoma of procedure are in larynx the results section. TOTAL PROTEIN Routine 06/06/2021 6:58 Primary squamous Result s for this AM [employer]ITTING INSPECTOR cell carcinoma of procedure are in larynx the results section. ASPARTATE Routine 06/06/2021 6:58 Primary squamous Results for this AMINOTRANSFERASE AM KNITTING INSPECTOR cell carcinoma of proced ure are in larynx the results section. ALANINE Routine 06/06/2021 6:58 Primary squamous Results for this AMINOTRANSFERASE AM [employer]ITTING INSPECTOR cell carcinoma of proced ure are in larynx the results section. ALKALINE PHOSPHATASE Routine 06/06/2021 6:58 Primary squamous Results for this AM [employer]ITTING INSPECTOR cell carcinoma of procedure are in larynx the results section. ALBUMIN LEVEL Routine 06/06/2021 6:58 Primary squamous Result s for this AM [employer]ITTING INSPECTOR cell carcinoma of procedure are in larynx the results section. CALCIUM LEVEL TOTAL Routine 06/06/2021 6:58 Primary squamous Results for this AM [employer]ITTING INSPECTOR cell carcinoma of procedure are in larynx the results section. .GLOMERULAR FILTRATION Routine 06/06/2021 6:58 Primary squamo us Results for this RATE AM [employer]ITTING INSPECTOR cell carcinoma of procedure are in larynx the results section. SERUM CREATININE Routine 06/06/2021 6:58 Primary squamous Res ults for this AM [employer]ITTING INSPECTOR cell carcinoma of procedure are in larynx the results section. ELECTROLYTE PANEL Routine 06/06/2021 6:58 Primary squamous Re sults for this AM [employer]ITTING INSPECTOR cell carcinoma of procedure are in larynx the results section. BLOOD UREA NITROGEN Routine 06/06/2021 6:58 Primary squamous Results for this AM [employer]ITTING INSPECTOR cell carcinoma of procedure are in larynx the results section. GLUCOSE LEVEL Routine 06/06/2021 6:58 Primary squamous Result s for this AM [employer]ITTING INSPECTOR cell carcinoma of procedure are in larynx the results section. PHOSPHORUS LEVEL Routine 06/06/2021 6:58 Primary squamous Res ults for this AM [employer]ITTING INSPECTOR cell carcinoma of procedure are in larynx the results section. MAGNESIUM LEVEL Routine 06/06/2021 6:58 Primary squamous Resu lts for this AM [employer]ITTING INSPECTOR cell carcinoma of procedure are in larynx the results section. COMPLETE BLOOD COUNT W/ Routine 06/06/2021 6:58 Primary squam ous DIFFERENTIAL AM [employer]ITTING INSPECTOR cell carcinoma of larynx COMPREHENSIVE METABOLIC Routine 06/06/2021 6:58 Primary squam ous PANEL AM [employer]ITTING INSPECTOR cell carcinoma of larynx MANUAL DIFFERENTIAL Routine 05/30/2021 8:28 Primary squamous Results for this AM [employer]ITTING INSPECTOR cell carcinoma of procedure are in larynx the results section. Results CBC Routine 05/30/2021 8:28 Primary squamous Results for this AM [employer]ITTING INSPECTOR cell carcinoma of procedure are in larynx the results section. FRACTIONATED BILIRUBIN Routine 05/30/2021 8:28 Primary squamo us Results for this AM [employer]ITTING INSPECTOR cell carcinoma of procedure are in larynx the results section. TOTAL PROTEIN Routine 05/30/2021 8:28 Primary squamous Result s for this AM [employer]ITTING INSPECTOR cell carcinoma of procedure are in larynx the results section. ASPARTATE Routine 05/30/2021 8:28 Primary squamous Results for this AMINOTRANSFERASE AM KNITTING INSPECTOR cell carcinoma of proced ure are in larynx the results section. ALANINE Routine 05/30/2021 8:28 Primary squamous Results for this AMINOTRANSFERASE AM [employer]NITTING INSPECTOR cell carcinoma of proced ure are in larynx the results section. ALKALINE PHOSPHATASE Routine 05/30/2021 8:28 Primary squamous Results for this AM [employer]ITTING INSPECTOR cell carcinoma of procedure are in larynx the results section. ALBUMIN LEVEL Routine 05/30/2021 8:28 Primary squamous Result s for this AM [employer]ITTING INSPECTOR cell carcinoma of procedure are in larynx the results section. CALCIUM LEVEL TOTAL Routine 05/30/2021 8:28 Primary squamous Results for this AM [employer]ITTING INSPECTOR cell carcinoma of procedure are in larynx the results section. .GLOMERULAR FILTRATION Routine 05/30/2021 8:28 Primary squamo us Results for this RATE AM [employer]NITTING INSPECTOR cell carcinoma of procedure are in larynx the results section. SERUM CREATININE Routine 05/30/2021 8:28 Primary squamous Res ults for this AM [employer]ITTING INSPECTOR cell carcinoma of procedure are in larynx the results section. ELECTROLYTE PANEL Routine 05/30/2021 8:28 Primary squamous Re sults for this AM [employer]ITTING INSPECTOR cell carcinoma of procedure are in larynx the results section. BLOOD UREA NITROGEN Routine 05/30/2021 8:28 Primary squamous Results for this AM [employer]NITTING INSPECTOR cell carcinoma of procedure are in larynx the results section. GLUCOSE LEVEL Routine 05/30/2021 8:28 Primary squamous Result s for this AM [employer]ITTING INSPECTOR cell carcinoma of procedure are in larynx the results section. PHOSPHORUS LEVEL Routine 05/30/2021 8:28 Primary squamous Res ults for this AM [employer]ITTING INSPECTOR cell carcinoma of procedure are in larynx the results section. MAGNESIUM LEVEL Routine 05/30/2021 8:28 Primary squamous Resu lts for this AM KNITTING INSPECTOR cell carcinoma of procedure are in larynx the results section. COMPLETE BLOOD COUNT W/ Routine 05/30/2021 8:28 Primary squam ous DIFFERENTIAL AM [employer]NITTING INSPECTOR cell carcinoma of larynx COMPREHENSIVE METABOLIC Routine 05/30/2021 8:28 Primary squam ous PANEL AM KNITTING INSPECTOR cell carcinoma of larynx MANUAL DIFFERENTIAL Routine 05/23/2021 8:42 Primary squamous Results for this AM [employer]ITTING INSPECTOR cell carcinoma of procedure are in larynx the results section. Results CBC Routine 05/23/2021 8:42 Primary squamous Results for this AM [employer]ITTING INSPECTOR cell carcinoma of procedure are in larynx the results section. FRACTIONATED BILIRUBIN Routine 05/23/2021 8:42 Primary squamo us Results for this AM KNITTING INSPECTOR cell carcinoma of procedure are in larynx the results section. TOTAL PROTEIN Routine 05/23/2021 8:42 Primary squamous Result s for this AM [employer]NITTING INSPECTOR cell carcinoma of procedure are in larynx the results section. ASPARTATE Routine 05/23/2021 8:42 Primary squamous Results for this AMINOTRANSFERASE AM KNITTING INSPECTOR cell carcinoma of proced ure are in larynx the results section. ALANINE Routine 05/23/2021 8:42 Primary squamous Results for this AMINOTRANSFERASE AM KNITTING INSPECTOR cell carcinoma of proced ure are in larynx the results section. ALKALINE PHOSPHATASE Routine 05/23/2021 8:42 Primary squamous Results for this AM KNITTING INSPECTOR cell carcinoma of procedure are in larynx the results section. ALBUMIN LEVEL Routine 05/23/2021 8:42 Primary squamous Result s for this AM [employer]ITTING INSPECTOR cell carcinoma of procedure are in larynx the results section. CALCIUM LEVEL TOTAL Routine 05/23/2021 8:42 Primary squamous Results for this AM KNITTING INSPECTOR cell carcinoma of procedure are in larynx the results section. .GLOMERULAR FILTRATION Routine 05/23/2021 8:42 Primary squamo us Results for this RATE AM [employer]NITTING INSPECTOR cell carcinoma of procedure are in larynx the results section. SERUM CREATININE Routine 05/23/2021 8:42 Primary squamous Res ults for this AM KNITTING INSPECTOR cell carcinoma of procedure are in larynx the results section. ELECTROLYTE PANEL Routine 05/23/2021 8:42 Primary squamous Re sults for this AM KNITTING INSPECTOR cell carcinoma of procedure are in larynx the results section. BLOOD UREA NITROGEN Routine 05/23/2021 8:42 Primary squamous Results for this AM K[employer]ITTING INSPECTOR cell carcinoma of procedure are in larynx the results section. GLUCOSE LEVEL Routine 05/23/2021 8:42 Primary squamous Result s for this AM KNITTING INSPECTOR cell carcinoma of procedure are in larynx the results section. PHOSPHORUS LEVEL Routine 05/23/2021 8:42 Primary squamous Res ults for this AM KNITTING INSPECTOR cell carcinoma of procedure are in larynx the results section. MAGNESIUM LEVEL Routine 05/23/2021 8:42 Primary squamous Resu lts for this AM KNITTING INSPECTOR cell carcinoma of procedure are in larynx the results section. COMPLETE BLOOD COUNT W/ Routine 05/23/2021 8:42 Primary squam ous DIFFERENTIAL AM KNITTING INSPECTOR cell carcinoma of larynx COMPREHENSIVE METABOLIC Routine 05/23/2021 8:42 Primary squam ous PANEL AM KNITTING INSPECTOR cell carcinoma of larynx FL MODIFIED BARIUM Routine 05/18/2021 9:57 Primary squamous R esults for this SWALLOW W SPEECH AM KNITTING INSPECTOR cell carcinoma of proced ure are in larynx the results section. CT HEAD/NECK SIMULATION Routine 05/11/2021 10:46 Primary squam ous Results for this WO CONTRAST (RO) AM KNITTING INSPECTOR cell carcinoma of proced ure are in larynx the results section. COVID-19 Routine 05/11/2021 9:05 Encounter for Results fo r this (SARS-COV-2) PCR AM KNITTING INSPECTOR observation for procedur e are in ASYMPTOMATIC other suspected the results exposure to section. biological agent ruled out ORTHOPANTOGRAM Routine 05/06/2021 10:53 Encounter for Results for this AM KNITTING INSPECTOR observation for procedure ar e in other suspected the results disease ruled out section. ORGANIC SECTION TECHNICAL LEAD 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 Routine 05/06/2021 9:58 Primary squamous Results for this AM KNITTING INSPECTOR cell carcinoma of procedure are in larynx the results section. FRACTIONATED BILIRUBIN Routine 05/04/2021 11:10 Primary squamo us Results for this AM KNITTING INSPECTOR cell carcinoma of procedure are in larynx the results section. TOTAL PROTEIN Routine 05/04/2021 11:10 Primary squamous Result s for this AM KNITTING INSPECTOR cell carcinoma of procedure are in larynx the results section. ASPARTATE Routine 05/04/2021 11:10 Primary squamous Results for this AMINOTRANSFERASE AM KNITTING INSPECTOR cell carcinoma of proced ure are in larynx the results section. ALANINE Routine 05/04/2021 11:10 Primary squamous Results for this AMINOTRANSFERASE AM KNITTING INSPECTOR cell carcinoma of proced ure are in larynx the results section. ALKALINE PHOSPHATASE Routine 05/04/2021 11:10 Primary squamous Results for this AM KNITTING INSPECTOR cell carcinoma of procedure are in larynx the results section. ALBUMIN LEVEL Routine 05/04/2021 11:10 Primary squamous Result s for this AM KNITTING INSPECTOR cell carcinoma of procedure are in larynx the results section. .GLOMERULAR FILTRATION Routine 05/04/2021 11:10 Primary squamo us Results for this RATE AM KNITTING INSPECTOR cell carcinoma of procedure are in larynx the results section. SERUM CREATININE Routine 05/04/2021 11:10 Primary squamous Res ults for this AM KNITTING INSPECTOR cell carcinoma of procedure are in larynx the results section. VITAMIN D 25 HYDROXY Routine 05/04/2021 11:10 Primary squamous Results for this LEVEL AM KNITTING INSPECTOR cell carcinoma of procedure are in larynx the results section. HEPATIC FUNCTION PANEL Routine 05/04/2021 11:10 Primary squamo us AM KNITTING INSPECTOR cell carcinoma of larynx CALCIUM LEVEL TOTAL Routine 05/04/2021 11:10 Primary squamous Results for this AM KNITTING INSPECTOR cell carcinoma of procedure are in larynx the results section. PHOSPHORUS LEVEL Routine 05/04/2021 11:10 Primary squamous Res ults for this AM KNITTING INSPECTOR cell carcinoma of procedure are in larynx the results section. MAGNESIUM LEVEL Routine 05/04/2021 11:10 Primary squamous Resu lts for this AM KNITTING INSPECTOR cell carcinoma of procedure are in larynx the results section. GLUCOSE, RANDOM Routine 05/04/2021 11:10 Primary squamous Resu lts for this AM KNITTING INSPECTOR cell carcinoma of procedure are in larynx the results section. SERUM CREATININE Routine 05/04/2021 11:10 Primary squamous AM KNITTING INSPECTOR cell carcinoma of larynx BLOOD UREA NITROGEN Routine 05/04/2021 11:10 Primary squamous Results for this AM KNITTING INSPECTOR cell carcinoma of procedure are in larynx the results section. ELECTROLYTE PANEL Routine 05/04/2021 11:10 Primary squamous Re sults for this AM KNITTING INSPECTOR cell carcinoma of procedure are in larynx the results section. COVID-19 Routine 05/04/2021 10:23 Suspected COVID-19 Resul ts for this (SARS-COV-2) PCR AM KNITTING INSPECTOR procedure a re in ASYMPTOMATIC the results section. TMP HCVAB INTERP Routine 05/03/2021 8:26 Results for this AM KNITTING INSPECTOR procedure are i n the results section. FRACTIONATED BILIRUBIN Routine 05/03/2021 8:26 Primary squamo us Results for this AM KNITTING INSPECTOR cell carcinoma of procedure are in larynx the results section. TOTAL PROTEIN Routine 05/03/2021 8:26 Primary squamous Result s for this AM KNITTING INSPECTOR cell carcinoma of procedure are in larynx the results section. ASPARTATE Routine 05/03/2021 8:26 Primary squamous Results for this AMINOTRANSFERASE AM KNITTING INSPECTOR cell carcinoma of proced ure are in larynx the results section. ALANINE Routine 05/03/2021 8:26 Primary squamous Results for this AMINOTRANSFERASE AM KNITTING INSPECTOR cell carcinoma of proced ure are in larynx the results section. ALKALINE PHOSPHATASE Routine 05/03/2021 8:26 Primary squamous Results for this AM KNITTING INSPECTOR cell carcinoma of procedure are in larynx the results section. ALBUMIN LEVEL Routine 05/03/2021 8:26 Primary squamous Result s for this AM KNITTING INSPECTOR cell carcinoma of procedure are in larynx the results section. CALCIUM LEVEL TOTAL Routine 05/03/2021 8:26 Primary squamous Results for this AM KNITTING INSPECTOR cell carcinoma of procedure are in larynx the results section. .GLOMERULAR FILTRATION Routine 05/03/2021 8:26 Primary squamo us Results for this RATE AM KNITTING INSPECTOR cell carcinoma of procedure are in larynx the results section. SERUM CREATININE Routine 05/03/2021 8:26 Primary squamous Res ults for this AM KNITTING INSPECTOR cell carcinoma of procedure are in larynx the results section. ELECTROLYTE PANEL Routine 05/03/2021 8:26 Primary squamous Re sults for this AM KNITTING INSPECTOR cell carcinoma of procedure are in larynx the results section. BLOOD UREA NITROGEN Routine 05/03/2021 8:26 Primary squamous Results for this AM KNITTING INSPECTOR cell carcinoma of procedure are in larynx the results section. GLUCOSE LEVEL Routine 05/03/2021 8:26 Primary squamous Result s for this AM KNITTING INSPECTOR cell carcinoma of procedure are in larynx the results section. MANUAL DIFFERENTIAL Routine 05/03/2021 8:26 Primary squamous Results for this AM KNITTING INSPECTOR cell carcinoma of procedure are in larynx the results section. Results CBC Routine 05/03/2021 8:26 Primary squamous Results for this AM KNITTING INSPECTOR cell carcinoma of procedure are in larynx the results section. FREE THYROXINE Routine 05/03/2021 8:26 Primary squamous Resul ts for this AM KNITTING INSPECTOR cell carcinoma of procedure are in larynx the results section. HEPATITIS C VIRUS Routine 05/03/2021 8:26 Primary squamous Re sults for this ANTIBODY AM KNITTING INSPECTOR cell carcinoma of procedure are in larynx the results section. THYROID STIMULATING Routine 05/03/2021 8:26 Primary squamous Results for this HORMONE AM KNITTING INSPECTOR cell carcinoma of procedure are in larynx the results section. COMPREHENSIVE METABOLIC Routine 05/03/2021 8:26 Primary squam ous PANEL AM KNITTING INSPECTOR cell carcinoma of larynx COMPLETE BLOOD COUNT W/ Routine 05/03/2021 8:26 Primary squam ous DIFFERENTIAL AM KNITTING INSPECTOR cell carcinoma of larynx CT CHEST W CONTRAST Routine 05/03/2021 7:27 Primary squamous Results for this AM KNITTING INSPECTOR cell carcinoma of procedure are in larynx the results section. CT SOFT TISSUE NECK W Routine 05/03/2021 7:27 Primary squamou s Results for this CONTRAST AM KNITTING INSPECTOR cell carcinoma of procedure are in larynx the results section. POC CREATININE Routine 05/03/2021 6:56 Results f or this AM KNITTING INSPECTOR procedure are i n the results section. [...] are i n the results section. after 09/05/2020 Results (ABNORMAL) POC Glucose Screen (08/31/2021 10:15 AM CDT)Only the most recent of40 resultswithin the time period is included. POC Glucose 131 (H) 70 - 99 mg/dL POC [facility] [...] Sample Type Capillary POC [facility]: [facility], [address] [place] [address] [place] [address]; Paper Novelty Maker: Loida Chavez MD Specimen Blood Performing Organization Address City/State/ZIP Code Phon e Number POC TELCOR .Serum Creatinine (08/31/2021 4:26 AM CDT)Only the most recent of27 results within the time period is included. Pathologist Sig nature Creatinine 0.71 0.67 - 1.17 mg/dL [facility] CANCER C ENTER Specimen Blood Performing Organization Address City/[facility] Code Phon e Number [facility]CER Unless otherwise noted, [address] all lab tests performed by: Division of Pathology and Laboratory Medicine [address] [facility] (ABNORMAL) .CBC (08/31/2021 4:26 AM CDT)Only the most recent of21 resultswithin the time period is included. Pathologist [facility] WBC 4.4 4.0 - 11.0 [facility] K/uL [facility] RBC 3.03 (L) 4.50 - 6.00 [facility] M/uL [facility] Hgb 8.3 (L) 14.0 - 18.0 [facility] gm/dL [facility] Hct 26.8 (L) 40.0 - 54.0 % [facility] MCV 88 82 - 98 fL [facility] MCH 27.4 27.0 - 31.0 pg [facility] MCHC 31.0 31.0 - 36.0 [facility] gm/dL [facility] RDW-SD 46.0 35.1 - 46.3 fL [facility] RDW-CV 14.1 12.0 - 15.5 % [facility] Platelet count 236 140 - 440 K/uL [facility] MPV 10.0 4.0 - 10.4 fL [facility] INRBC 0.0 <=0.0 % [facility] Comment: [facility] The INRBC (instrument NRBC) value reflects the enumera tion of nucleated red blood cells contained in a 200uL samp le of whole blood analyzed by the instrument. This value may differ from the NRBC value reported in a manual differ ential, which is based on a 100 cell differential. Specimen Blood Performing Organization Address City/State/ZIP Code Phon e Number [facility]CER Unless otherwise noted, [address] all lab tests performed by: Division of Pathology and Laboratory Medicine [address] [place] Glomerular Filtration Rate (08/31/2021 4:26 AM CDT)Only the most recent of27 resultswithin the time period is included. Pathologist [facility] eGFR-AA 108 >=60 [facility] Comment: mL/min/1.73 [facility] Normal eGFR: >= 60 mL/min/1.73 m2 sq. [...] GFR 15-29 5 Kidney failure <15 eGFR-JOSELITO 94 >=60 [facility] Comment: mL/min/1.73 [facility] Normal eGFR: >= 60 mL/min/1.73 m2 sq. [...] failure <15 Specimen Blood Performing Organization Address City/State/ZIP Code Phon e Number [facility] Unless otherwise noted, [address] all lab tests performed by: Division of Pathology and Laboratory Medicine [facility] [place] (ABNORMAL) Differential (08/31/2021 4:26 AM CDT)Only the most recent of21 resultswithin the time period is included. Neutrophil % 71.7 (H) 42.0 - 66.0 % [facility] Lymphocyte % 14.8 (L) 24.0 - 44.0 % [facility] Monocyte % 6.6 2.0 - 7.0 % [facility] Eosinophil % 5.7 (H) 1.0 - 4.0 % [facility] Basophil % 0.7 0.0 - 1.0 % [facility] IGRE % 0.5 (H)Comment: 0.0 - 0.4 % [facility] IGRE % count [facility] includes Metamyelocytes, Myelocytes, and Promyelocytes. Neutrophil Abs 3.16 1.70 - 7.30 [facility] Lymphocyte Abs 0.65 (L) 1.00 - 4.80 [facility] Monocyte Abs 0.29 0.08 - 0.70 [facility] Eosinophil Abs 0.25 0.04 - 0.40 [facility] Basophil Abs 0.03 0.00 - 0.10 [facility] IG Abs 0.02 0.00 - 0.04 [facility] Specimen Blood Performing Organization Address City/[facility] Phon e Number [facility] Unless otherwise noted, [address] all lab tests performed by: Division of Pathology and Laboratory Medicine [address] [place] BUN (08/31/2021 4:26 AM CDT)Only the most recent of27 resultswithin the time period is included. Pathologist Sig nature BUN 15 6 - 23 mg/dL [facility] Specimen Blood Performing Organization Address [facility] Phon e Number [facility] Unless otherwise noted, [address] all lab tests performed by: Division of Pathology and Laboratory Medicine [address] [place] Phosphorus Level (08/31/2021 4:26 AM CDT)Only the most recent of26 results within the time period is included. Pathologist Sig nature Phosphorus 3.0 2.5 - 4.5 mg/dL [facility] TER Specimen Blood Performing Organization Address City/[facility] Phon e Number [facility] Unless otherwise noted, [address] all lab tests performed by: Division of Pathology and Laboratory Medicine [address] [place] [place] Magnesium Level (08/31/2021 4:26 AM CDT)Only the most recent of26 resultswithin the time period is included. Pathologist Sig nature Magnesium 1.8 1.6 - 2.6 mg/dL [facility] [address] Specimen Blood Performing Organization Address [facility] Phon e Number [facility] Unless otherwise noted, [address] all lab tests performed by: Division of Pathology and Laboratory Medicine [address] [place] (ABNORMAL) Glucose Level (08/31/2021 4:26 AM CDT)Only the most recent of26 resultswithin the time period is included. Glucose Level 136 (H) 70 - 99 mg/dL [facility] Comment: CANCER CENTER Effective 12/29/15, the gluco se reference intervals have been updated based on [place] [employer] guidelines (Standards of Medical Care in Diabetes 2016. Diabetes Care 2016; 39: S13-S22). Fasting blood glucose: Normal: 70-99 mg/dL Impaired fasting glucose (in creased risk for diabetes or pre-diabetes): 100- 125 mg/dL Diabetes mellitus: >/=126 mg/dL Random blood glucose: Normal: 70-199 mg/dL Note: Random glucose >100 mg/dL is assoc iated with increased risk for diabetes Specimen Blood Performing Organization Address [facility] Phon e Number [facility] CANCER Unless otherwise noted, [address] all lab tests performed by: Division of Pathology and Laboratory Medicine [address] Calcium Level (08/31/2021 4:26 AM CDT)Only the most recent of26 resultswithin the time period is included. Pathologist Sig nature Calcium Lvl 8.4 8.4 - 10.2 mg/dL [facility] NTER Specimen Blood Performing Organization Address [facility] Phon e Number [facility] CANCER Unless otherwise noted, [address] all lab tests performed by: Division of Pathology and Laboratory Medicine [address] (ABNORMAL) Electrolyte Panel (08/31/2021 4:26 AM CDT)Only the most recent of27 resultswithin the time period is included. Pathologist Sig nature Sodium Lvl 138 136 - 145 mEq/L [facility] Potassium Lvl 3.4 (L) 3.5 - 5.1 mEq/L [facility] Chloride 101 98 - 107 mEq/L [facility] CO2 26 22 - 29 mEq/L [facility] Anion Gap 11 4 - 14 mEq/L [facility] CANCER [place] Specimen Blood Performing Organization Address City/State/ZIP Code Phon e Number [facility] CANCER Unless otherwise noted, [place] [address] CENTER all lab tests performed by: Division of Pathology and Laboratory Medicine [address] [place] Modified Barium Swallow w Speech (08/30/2021 3:15 PM CDT)Only the most recent of2 resultswithin the time period is included. Anatomical Region Laterality Modality Neck Radio Fluoroscopy Specimen Impressions [id number] - 08/30/2021 5:04 PM CDT 1. Sensate aspiration and flash aspiration with thin liquids, not reduced with strategies. Laryngeal penetration with nectar, reduced with strategies. 2. Mild to moderate pharyngeal residue w ith solids, reduced with strategies. 3. Pharyngeal contraction was weakened b ilaterally. 4. Please refer to the separately dictat ed speech pathology report for the complete assessment of the swallow function and recommendations. Narrative [id number] - 08/30/2021 5:04 PM CDT FULL RESULT: Examination: [place] MODIFIED BARIUM SWALLO W W SPEECH, 08/30/2021 3:15 PM Clinical History: Primary squamous cell carcinoma of larynx. Status post chemoradiation therapy completed on 07/08/2021. Indication: Re-evaluation of swallow fun ction; primary squamous cell carcinoma of larynx. Status post chemoradiation therapy. Comparison: Modified barium swallow 05/04. Technique: A modified barium swallow w as performed with speech pathology. The patient was given barium mixed with a variety of consistencies including thin liquid, pudding, and cracker to swallow by mouth under video fluoroscopy. Findings: Nasogastric tube visualized. T here was no nasopharyngeal reflux. There was sensate aspiration and flash aspiration seen with thin liquids which was not reduced with right head turn and chin tu ck, breath-hold strategies. There was la ryngeal penetration seen with nectar which was reduced with throat clear and re-swallow. There was mild pharyngeal residue with pudding. There was moderate pharyn geal residue seen with crackers which wa s reduced with liquid wash and re- swallow. Pharyngeal contraction was weakened bilaterally. Procedure Note Aggie Amezcua MD - 08/30/2021 FULL RESULT: Examination: FL MODIFIED BARIUM SWALLOW W SPEECH, 08/30/2021 3:15 PM Clinical History: Primary squamous cell carcinoma of larynx. Status post chemoradiation therapy completed on 07/08/2021. Indication: Re-evaluation of swallow fun ction; primary squamous cell carcinoma of larynx. Status post chemoradiation therapy. Comparison: Modified barium swallow 05/04. Technique: A modified barium swallow wa s performed with speech pathology. The patient was given barium mixed with a variety of consistencies including thin liquid, pudding, and cracker to swallow by mouth under video fluoroscopy. Findings: Nasogastric tube visualized. T here was no nasopharyngeal reflux. There was sensate aspiration and flash aspiration seen with thin liquids which was not reduced with right head turn and chin tuck, breath-hold strategies. There was laryngeal penetrat ion seen with nectar which was reduced with throat clear and re-swallow. There was mild pharyngeal residue with pudding. There was moderate pharyngeal residue seen with crackers which was reduced with liquid w christal and re-swallow. Pharyngeal contraction was weakened bilaterally. IMPRESSION: 1. Sensate aspiration and flash aspirati on with thin liquids, not reduced with strategies. Laryngeal penetration with nectar, reduced with strategies. 2. Mild to moderate pharyngeal residue w ith solids, reduced with strategies. 3. Pharyngeal contraction was weakened b ilaterally. 4. Please refer to the separately dictat ed speech pathology report for the complete assessment of the swallow function and recommendations. Performing Organization Address City/State/ZIP Code Phon e Number [id number] XR Abdomen 1 View Portable (08/29/2021 6:11 PM CDT) Anatomical Region Laterality Modality Abdomen Digital Radiography Specimen Impressions [id number] - 08/29/2021 7:19 PM CDT Dobbhoff tube follows the course of the duodenum, tip projecting near the duodenojejunal junction. Narrative [id number] - 08/29/2021 7:19 PM CDT FULL RESULT: Examination: XR ABDOMEN 1 VW PORTABLE 6:11 PM Clinical History:Primary squamous cell c arcinoma of larynx Indication: Other:, check [facility] ent Comparison: 07/08/2021 Technique: XR ABDOMEN 1 VW PORTABLE. Findings: Dobbhoff tube follows the course of the duodenum, tip projecting near the duodenojejunal junction. No dilated loops of bowel are identified in the visualized abdomen. Unchanged osseous structures. Procedure Note Bogdan Lemus MD - 08/29/2021 FULL RESULT: Examination: XR ABDOMEN 1 VW PORTABLE 6:11 PM Clinical History:Primary squamous cell c arcinoma of larynx Indication: Other:, check dubhoff placem ent Comparison: 07/08/2021 Technique: XR ABDOMEN 1 VW PORTABLE. Findings: Dobbhoff tube follows the course of the duodenum, tip projecting near the duodenojejunal junction. No dilated loops of bowel are identified in the visualized abdomen. Unchanged osseous structures. IMPRESSION: Dobbhoff tube follows the course of the duodenum, tip projecting near the duodenojejunal junction. Performing Organization Address City/State/ZIP Code Phon e Number [id number] Pathology Biopsy Interpretation (08/29/2021 2:14 PM CDT) Pathologist Sig nature Submitted Clinical Iron deficiency [facility] History anemia, not otherwise specified [D50.9] Diagnosis A: Duodenum, biopsy: [facility] Electro nically signed Duodenal mucosa with no diagnostic abnormality. by Lorena Badillo DO on 08/31/2021 at B: Stomach, gastric antrum, biopsy: 4:40 PM Antral and transitional mucosa with reactive gastropat hy. No Helicobacter organisms (H&E stain) or intestinal me taplasia identified. C: Stomach, gastric body nodularity, biopsy: Fundic gland polyp. D: Colon, hepatic flexure, less than 5 mm sessile poly p, biopsy: Tubular adenoma. Gross Description A: [facility] Duodenum, duodenum: 3 soft t an tissue fragments, 0.2 cm - 0.35 cm, entirely submitted in A1. ET B: Stomach, gastric antrum: Mul tiple soft spicer tissue fragments, 0.6 x 0.5 x 0.3 cm in aggregate, entirely submitted in B1. ET C: Stomach, gastric body nodula rity: Multiple soft spicer tissue fragments, 0.7 x 0.4 x 0.3 cm in aggregate, entirely submitted in C1. ET D: Colon, hepatic flexure less than 5 mm sessile polyp: 1 soft spicer tissue fragment, 0.4 cm, entirely submitted in D1. ET Disclaimer "Some tests reported [facility] here may have been developed and performance characteristics determined by [facility] Pathology and Laboratory Medicine. These tests have not been specifically cleared or approved by the U.S. Food and Drug Administration. If applicable, controls were reviewed and showed appropriate reactivity." Specimen Tissue - Duodenum Tissue - Stomach Tissue - Stomach Tissue - Colon Performing Organization Address City/[facility] Code Phon e Number [facility] [address] (ABNORMAL) Prothrombin Time with INR (08/29/2021 5:31 AM CDT)Only the most recent of3 resultswithin the time period is included. Pathologist Sig nature PT 14.9 (H) 11.5 - 13.9 [facility] second(s) CENTER INR 1.26 (H) 0.90 - 1.10 [facility] Specimen Blood Performing Organization Address [facility] Phon e Number [facility] CANCER Unless otherwise noted, [address] all lab tests performed by: Division of Pathology and Laboratory Medicine [address] [place] [address] Transfuse RBC:Transfusion Date: 08/25/2021 (08/26/2021 6:58 AM CDT)Only the most recent of2 resultswithin the time period is included.Confirm ABORh (08/25/2021 6:19 PM CDT) Pathologist Sig nature ABORh Confirm. O NEG [facility] CANCER CENT ER Specimen Blood Performing Organization Address [facility] Phon e Number [facility] CANCER Unless otherwise noted, [address] all lab tests performed by: Division of Pathology and Laboratory Medicine [address] [place] [address] COVID-19 (SARS-CoV-2)Asymptomatic-LT (08/25/2021 6:15 PM CDT)Only the most recent of3 resultswithin the time period is included. COVID19 Not Detected Not Detected [facility] (SARS-CoV-2) [facility] COVID19 SARS Inpatient Admission [facility] Indication CANCER CENTER Covid 19 Comment See Note [facility] Comment: [facility] The rufino SARS-CoV-2 nucleic acid test for use on the rufino Alyson System is a real-time RT-PCR assay intended for the qualitative detection of SARS-CoV-2 (COVID-19) viral RNA in nasopharyngeal swabs from either individuals suspected of COVID-19 by their healthcare provider or from any individual, including individuals without symptoms or other reasons to suspect COVID-19. A fact sheet for patients provided by the assembly member ([employer]) can be reviewed at: https://www.[place].gov/media/10 1394/download. A fact sheet for Health Care providers is provided by the assembly member ([employer]) and can be reviewed at: https://www.fda.gov/media/523119/download Results must be interpreted within the context [...] and high-complexity tests. The Microbiology Laboratory at [facility], CLIA Accreditation # [id number] and CAP Accreditation #[id number], verified the performance characteristics of this assay. Internal controls are used to monitor all stages of the test process. Specimen Nasopharyngeal Swab Performing Organization Address City/[facility]/ZIP [facility] Phon e Number [facility] Unless otherwise noted, [address] all lab tests performed by: Division of Pathology and Laboratory Medicine [facility] Clot Expiration Date (08/25/2021 6:15 PM CDT) Pathologist Sig nature T & S Expiration 08/28/2021 [facility] Specimen Blood Performing Organization Address [facility] Phon e Number [facility] CANCER Unless otherwise noted, [address] all lab tests performed by: Division of Pathology and Laboratory Medicine [address] [facility] Fractionated Bilirubin (08/25/2021 6:15 PM CDT)Only the most recent of12 resultswithin the time period is included. Bili Total 0.4 <=1.2 mg/dL [facility] Comment: [facility] CENTER Indocyanine Green (ICG) may cause falsely elevated bilirubin results. Total and direct bilirubin must not be measured from samples containing indocyanine green. False elevation of total emmett irubin can be seen in patients with IgG concentrations above 28 g/L. Bili Direct 0.2Comment: <=0.3 mg/dL [facility] Indocyanine Green CANCER CENTER (ICG) may cause falsely elevated bilirubin results. Total and direct bilirubin must not be measured from samples containing indocyanine green. Bili Indirect 0.2 0.0 - 0.9 [facility] mg/dL CANCER CENTER Specimen Blood Performing Organization Address City/[facility] Phon e Number [facility] CANCER Unless otherwise noted, [address] all lab tests performed by: Division of Pathology and Laboratory Medicine [address] [place] [address] TMP Interpretation Antibody Screen Negative (08/25/2021 6:15 PM CDT) Pathologist [facility] Auto Neg ABSC At the present time, иван hobbs plasma shows no evidence of RBC alloantibodies. [facility] Interp Comment: [facility] MD Carri ALLEN [id number] Dictated by: NICHOLE HUMPHREY MD - [id number] Dictated Date/Time: 08.27.19 8:43 AM CDT Transcribed Date/Time: 08.26.2021 8:43 AM CDT Electronically Signed By: MD Carri CAZARES [id number] on 08.26.2021 8:43 AM C Specimen Blood Performing Organization Address City/[facility] Phon e Number [facility] CANCER Unless otherwise noted, [address] all lab tests performed by: Division of Pathology and Laboratory Medicine [address] [place] [address] Isabell TMP Interpretation Crossmatch (08/25/2021 6:15 PM CDT) [facility] XM Interp RBC units crossmatched for transfusion appear ac ceptable. [facility] Comment: [facility] NICHOLE HUMPHREY MD - [id number] Dictated by: NICHOLE HUMPHREY MD - [id number] Dictated Date/Time: 08.27.19 8:43 AM CDT Transcribed Date/Time: 08.26.2021 8:43 AM CDT Electronically Signed By: MD Carri CAZARES [id number] on 08.26.2021 8:43 AM C Specimen Blood Performing Organization Address [facility] Phon e Number [facility] Unless otherwise noted, [address] all lab tests performed by: Division of Pathology and Laboratory Medicine [address] aPTT (08/25/2021 6:15 PM CDT)Only the most recent of2 resultswithin the time period is included. Pathologist Sig nature aPTT 32.7 24.7 - 36.8 second(s) [facility] CENTER Specimen Blood Performing Organization Address [facility] Phon e Number [facility] CANCER Unless otherwise noted, [address] all lab tests performed by: Division of Pathology and Laboratory Medicine [address] ABORh (08/25/2021 6:15 PM CDT) Pathologist Sig nature ABORh. O NEG [facility] Specimen Blood Performing Organization Address [facility] Phon e Number [facility] Unless otherwise noted, [address] all lab tests performed by: Division of Pathology and Laboratory Medicine [address] Antibody Screen (08/25/2021 6:15 PM CDT) Pathologist Sig nature ABSC. Negative ABSC [facility] CENTE R Specimen Blood Performing Organization Address City/[facility] Phon e Number [facility] CANCER Unless otherwise noted, [address] all lab tests performed by: Division of Pathology and Laboratory Medicine [address] ALT (08/25/2021 6:15 PM CDT)Only the most recent of12 resultswithin the time period is included. Pathologist Sig nature ALT 29 <=41 U/L [facility] Specimen Blood Performing Organization Address City/[facility]/ZIP Code Phon e Number [facility] CANCER Unless otherwise noted, [address] all lab tests performed by: Division of Pathology and Laboratory Medicine [address] Aspartate Aminotransferase (08/25/2021 6:15 PM CDT)Only the most recent of12 resultswithin the time period is included. Pathologist Sig nature AST 32 <=40 U/L [facility] Specimen Blood Performing Organization Address City/[facility]/ZIP [facility] Phon e Number [facility] CANCER Unless otherwise noted, [address] all lab tests performed by: Division of Pathology and Laboratory Medicine [address] Total Protein (08/25/2021 6:15 PM CDT)Only the most recent of12 resultswithin the time period is included. Pathologist Sig nature Total Protein 7.2 6.4 - 8.3 g/dL [facility] TER Specimen Blood Performing Organization Address [facility] e Number [facility] Unless otherwise noted, [address] all lab tests performed by: Division of Pathology and Laboratory Medicine [address] Alkaline Phosphatase (08/25/2021 6:15 PM CDT)Only the most recent of12 results within the time period is included. Pathologist Sig nature Alk Phos 64 40 - 129 U/L [facility] Specimen Blood Performing Organization Address City/[facility] Phon e Number [facility] CANCER Unless otherwise noted, [address] all lab tests performed by: Division of Pathology and Laboratory Medicine [address] Albumin Level (08/25/2021 6:15 PM CDT)Only the most recent of12 resultswithin the time period is included. Pathologist Sig nature Albumin Lvl 3.7 3.5 - 5.2 gm/dL [facility] TER Specimen Blood Performing Organization Address City/[facility] Phon e Number [facility] Unless otherwise noted, [address] all lab tests performed by: Division of Pathology and Laboratory Medicine [address] RBC Product Ready for Hot Mill Supervisor (08/25/2021 4:47 PM CDT) PRBC Product Ready B2 Blood [facility] for Hot Mill Supervisor BankComment: CANCER CENTER Product is ready for sweet pickled fruit maker on August 25, 2021 22:21:56 CDT. Specimen Blood Performing Organization Address City/[facility]/ZIP Code Phon e Number [facility] CANCER Unless otherwise noted, [address] all lab tests performed by: Division of Pathology and Laboratory Medicine [address] [place] [address] [place] Prepare RBC:accc, 2 Units (08/25/2021 4:47 PM CDT) PRBC Product Ready 2Comment: Red Blood [facility] Cells Available - [facility] Order Form 03 when ready for product issue. Unit Number [id number] [facility] Product Code [id number] [facility] Unit Expiration [id number] [facility] Unit Blood Type 9500 [facility] Product Code Text RBCIRLR CPD AS1 [facility] 500mL [facility] Crossmatch [id number] [facility] Expiration Date CANCER CENTER Unit Irradiated IRRADIATED [facility] Dispense Status ISSUED [facility] Unit Blood Type O Negative [facility] Product Hot [employer] Supervisor .BPAMComment: [facility] Location [facility] [place] Unit Number [id number] [facility] Product Code [id number] [facility] CENTER Unit Expiration [id number] [facility] Unit Blood Type 9500 [facility] Product Code Text RBCIRLR CPD AS1 [facility] 500mL [facility] CENTER Crossmatch [id number] [facility] Expiration Date CANCER CENTER Unit Irradiated IRRADIATED [facility] Dispense Status ISSUED [facility] Unit Blood Type O Negative [facility] Product Hot Mill Supervisor .BPAMComment: [facility] Location [facility] [place] Specimen Blood Performing Organization Address City/State/ZIP Code Phon e Number [facility] CANCER Unless otherwise noted, [address] all lab tests performed by: Division of Pathology and Laboratory Medicine [address] [facility] X-ray Chest 2 Views (08/25/2021 11:17 AM CDT) Anatomical Region Laterality Modality Chest Digital Radiography Specimen Impressions [id number] - 08/25/2021 11:31 AM CDT There are mild opacities over the dorsal costophrenic recess on the lateral view that may represent either aspiration or pneumonia. Narrative [id number] - 08/25/2021 11:31 AM CDT FULL RESULT: Examination: XR CHEST 2 VW, 08/25/2021 11 :17 AM Clinical History: Aspiration pneumonia Primary squamous cell carcinoma of laryn x Indication: Cough Comparison: 07/08/2021 Technique: Posteroanterior, lateral and dual-energy radiographs of the chest. Findings: There are mild opacities over the dorsal costophrenic recess on the lateral view that may represent either aspiration or pneumonia. There is no pleural effusion or pneumothorax. There is no mediastinal or hilar adenopathy. Cardiac silhouette is normal. Weighted feeding tube terminates in the stomach. Procedure Note Jabier Cunningham MD - 08/25/2021 FULL RESULT: Examination: XR CHEST 2 VW, 08/25/2021 11 :17 AM Clinical History: Aspiration pneumonia Primary squamous cell carcinoma of laryn x Indication: Cough Comparison: 07/08/2021 Technique: Posteroanterior, lateral and dual-energy radiographs of the chest. Findings: There are mild opacities over the dorsal costophrenic recess on the lateral view that may represent either aspiration or pneumonia. There is no pleural effusion or pneumothorax. There is no mediastinal or hilar adenopathy. Cardiac silhouette is normal . Weighted feeding tube terminates in the stomach. IMPRESSION: There are mild opacities over the dorsal costophrenic recess on the lateral view that may represent either aspiration or pneumonia. Performing Organization Address City/State/ZIP Code Phon e Number [id number] Flexible nasopharyngeal laryngoscopy (08/22/2021 10:38 AM CDT) Narrative Rebecca Brown CCC-ORGANIC SECTION TECHNICAL LEAD - 10:38 AM CDT JAMIE Camarena 08/22/2021 4:05 PM Flexible nasopharyngeal laryngoscopy Date/Time: 08/22/2021 10:38 AM Provider Information: Performed by: Rebecca Brown CCC-SL P Authorized by: OUMAR Staples Field Sales Representative present?: no Indications: Indications: videostroboscopy Pre-Procedure Note: aerial photograph interpreter: no Pre-procedure patient condition: coher ent Procedure Details: Instrument used: flexible fiberoptic l aryngoscope Videostroboscopy performed: yes Patient preparation: patient ready for procedure, patient positioned for procedure and Xylocaine 4% Topical spray applied to the nasal mucosa for anesthesia The scope was introduced into the: ant erior nares Post-Procedure Complications: Immediate post-procedure complications: the procedure was terminated without complications Post-Procedure Patient Condition: Post-procedure patient condition: oscar ent remained hemodynamically stable throughout the procedure Post-Procedure Disposition: Disposition: discharge to home COVID-19 (SARS-CoV-2) PCR-Asymptomatic (08/20/2021 2:44 PM CDT) COVID19 (SARS Not Detected Not Detected [facility] MD [facility] CoV-2) Result Comment: [facility] CENTER This test is a qualitative r everse-transcriptase polymerase chain reaction (RT- PCR) developed for the Melba RUFINO 6800 system and intended for qualitative detection of SARS CoV-2 RNA in nasopharyngeal a nd oropharyngeal swab specimens collected from any individuals, including those suspected of COVID-19 by their healthcare provider, and those without symptoms or other reasons to suspect COVID-19. A fact sheet for patients provided by the assembly member ( [employer]) can be reviewed at: https://www.fda.gov/media/13 4490/download. A fact sheet for Health Care providers is provided by the assembly member ([employer]) and can be reviewed at: https://www.fda.gov/media/857336/download Results must be interpreted within the context of all relevant clinical and laboratory findings and should not form the sole basis for a diagnosis or treatment decision. Positive results do not rule out bacterial infection or co- infection with other viruses. Negative results do not rule out SARS-CoV-2 and must be combined with clinical observations, patient history, and/or epidemiological information. "Presumptive Positive" resul ts are due to partial amplification of SARS-CoV-2 targets and indicates low amounts of virus present in the specimen at or near the limit of detection. Regardless, individuals with "Presumptive Positive" results should be managed per institutional gu idelines as individuals positive for SARS-CoV-2 virus, including use of appropriate infection control protocols. Internal controls are includ ed to assess for possible amplification inhibitors. If inhibition is detected, testing is repeated and if inhibition is confirmed the specimen is resulted as "Invalid". When an "Invalid" result occurs, it is recommended to wait 3 days before submittin g a new specimen for testing if clinically indicated. This assay has been approve d by the FDA for use only under Emergency Use Authorization (EUA) in laboratories that have been CLIA-certified to perform moderate-complexity and high-complexity tests. The performance characteristics of this assay were verified by the Microbiology Laboratory at [facility], CLIA Accreditation #: [id number] and CAP Accreditation #: [id number]. COVID19 SARS CHAMBER WALKER Swab [facility] Source CANCER CENTER COVID19 SARS Pre-Out of OR [facility] Indication Procedure CANCER CENTER Specimen Nasopharyngeal Swab Performing Organization Address City/State/ZIP Code Phon e Number [facility] CANCER Unless otherwise noted, [place] [address] CENTER all lab tests performed by: Division of Pathology and Laboratory Medicine [facility]5 [facility] Echocardiogram 2D Complete (07/11/2021 4:16 PM KNITTING INSPECTOR) Specimen Narrative ISCV - 07/11/2021 4:19 PM KNITTING INSPECTOR Echocardiographic Report Interpretation Summary A complete two-dimensional [...] ( sept): 17.1 62 Performing Organization Address [facility] Phon e Number ISCV EKG, 12-Lead (07/11/2021)Only the most recent of5 resultswithin the time period is included. Specimen Narrative This result has an attachment that is no t available. Performing Organization Address [facility] Phon e Number GASPER IECG (ABNORMAL) Troponin T (In-House) (07/10/2021 6:09 AM KNITTING INSPECTOR)Only the most recent of4 resultswithin the time period is included. Pathologist Sig reji Troponin T 37 (H) <=18 ng/L [facility] Comment: CANCER CENTER < 19 ng/L Suggest [...] low results. Specimen Blood Performing Organization Address [facility] Phon e Number [facility] CANCER Unless otherwise noted, [address] all lab tests performed by: Division of Pathology and Laboratory Medicine [address] (ABNORMAL) Calcium Ionized, Venous (07/09/2021 10:35 PM KNITTING INSPECTOR) Pathologist Sig nature V Ion Ca 0.96 (L) 1.15 - 1.29 mmol/L [facility] Specimen Blood Performing Organization Address [facility] Phon e Number [facility] CANCER Unless otherwise noted, [address] all lab tests performed by: Division of Pathology and Laboratory Medicine [address] (ABNORMAL) Lower Respiratory Culture w/Gram Stain (07/09/2021 5:33 PM KNITTING INSPECTOR) Final Report Normal site shayna present. DC MD LICEA Generally of low significance. CANCER CHARLIE TER Correlate with clinical data and culture history. (A) Path Review The results have been review ed and electronically signed by Pathologist: DC MD ANUJA BRADY MD #[id number] [facility]ENTE R (A) Gram Stain Report Moderate WBC's seen [facility] MD L[facility] Epithelial cells seen [facility] CENTER Moderate Gram Positive Cocci Moderate Gram Variable Madan (A) Specimen Sputum Induced Performing Organization Address City/State/ZIP Code Phon e Number [facility] MD [facility] CANCER Unless otherwise noted, [place] [address] [place] all lab tests performed by: Division of Pathology and Laboratory Medicine [address] Vascular Access Ultrasound- VAP RN Device (07/09/2021 3:00 PM KNITTING INSPECTOR) Anatomical Region Laterality Modality Vascular Ultrasound Specimen Narrative Systemgenerated, Documentation - 022 3:00 PM KNITTING INSPECTOR This procedure requires no interpretatio n from the radiologist. Legionella Urine Antigen Path Review (07/08/2021 5:17 PM KNITTING INSPECTOR) Legionella Urine Negative for L. pneumophila serogroup 1 antigen, suggesting no recent or current infection. However, infection due to other serogroups and species of Legionella are not detected by this assay. In additi DC MD LIECA Antigen Path on, antigen may not be present in the urine in [facility] Review infection and the level of antigen present in the urine may be below the detection limit of the test. ... Reviewed and Electronically signed by Pathologist: Amaury Sinha MD, PhD #[id number] Comment: AMAURY SINHA MD, PhD - [id number] Dictated by: AMAURY SINHA MD, PhD - [id number] Dictated Date/Time: 07.11.19 1:11 AM KNITTING INSPECTOR Transcribed Date/Time: 07.11.2021 1:11 AM KNITTING INSPECTOR Electronically Signed By: ANIYAH SINHA MD, PhD - [id number] on 07.11.2021 1:11 AM C Specimen Urine Performing Organization Address City/State/ZIP Code Phon e Number [facility] CANCER Unless otherwise noted, [address] all lab tests performed by: Division of Pathology and Laboratory Medicine [address] Streptococcal Urine Antigen Path Review (07/08/2021 5:17 PM KNITTING INSPECTOR) Pathologist [facility] Streptococcal Urine Presumptive negative for S. pneumoniae antigen in urine, suggesting no current or recent pneumococcal infection. Infection due to S. pneumoniae cannot be ruled out since the level of antigen present in [facility] Antigen Path Review the urine may be below the detection limit o f the [facility] CENTER test. ... Reviewed and Electronically signed by Pathologist: Amaury Sinha MD, PhD #[id number] Comment: AMAURY SINHA MD, PhD - [id number] Dictated by: AMAURY SINHA MD, PhD - [id number] Dictated Date/Time: 07.11.19 1:11 AM KNITTING INSPECTOR Transcribed Date/Time: 07.11.2021 1:11 AM KNITTING INSPECTOR Electronically Signed By: ANIYAH SINHA MD, PhD - [id number] on 07.11.2021 1:11 AM C Specimen Urine Performing Organization Address City/[facility] Phon e Number [facility] CANCER Unless otherwise noted, [address] all lab tests performed by: Division of Pathology and Laboratory Medicine [facility] Streptococcus pneumoniae Urine Antigen (07/08/2021 5:17 PM KNITTING INSPECTOR) Streptococcal Urine Presumptive negative for S. pneumoniae antigen in the urine, suggesting no current or recent pneumococcal infection. However, infection due to S. pneumoniae cannot be completely ruled out since the leve [facility] Antigen Interpretation l of antigen present in the urine may be below the CANCER CENTER detection limit of the test. Streptococcal Urine Negative [facility] Antigen Interpretation CAN[facility] CENTER Specimen Urine Performing Organization Address City/[facility] Phon e Number [facility] CANCER Unless otherwise noted, [address] all lab tests performed by: Division of Pathology and Laboratory Medicine [address] Legionella Urine Antigen (07/08/2021 5:17 PM KNITTING INSPECTOR) Legionella Urine Negative for L. pneumophila serogroup 1 antigen, suggesting no recent or current infection. However, infections due to other serogroups and species of Legionella are not detected by this assay. In addition, antigen may not be present in the urine in [facility] Antigen Interpretation early infection and the leve l of antigen present in the urine may be below the detection limit of the test. CANCER C ENTER Legionella Urine Negative [facility] Antigen Interpretation [facility] CENTER Specimen Urine Performing Organization Address City/[facility] Phon e Number [facility] CANCER Unless otherwise noted, [address] all lab tests performed by: Division of Pathology and Laboratory Medicine [address] [place] [address] General Laboratory Add-On Test (07/08/2021 3:35 PM KNITTING INSPECTOR) Pathologist Sig nature Ordered Test Added [facility] Test Needed Procalcitonin [facility] Specimen Existing Performing Organization Address [facility] Phon e Number [facility] CANCER Unless otherwise noted, [address] all lab tests performed by: Division of Pathology and Laboratory Medicine [address] [place] [address] MRSA Screening Culture (07/08/2021 3:23 PM KNITTING INSPECTOR) Pathologist [facility] Final Report No Methicillin resistant [facility] Staphylococcus aureus [facility] CENTER isolated. Path Review Culture yield may be affecte d by sample quality, prior treatment, and transportation conditions. [facility] ... CANCER CENTER The results have been reviewed and electronically sign ed by Pathologist: Amaury Sinha MD, PhD #[id number] Specimen Nasal Performing Organization Address [facility] Phon e Number [facility] CANCER Unless otherwise noted, [address] all lab tests performed by: Division of Pathology and Laboratory Medicine [address] [place] [address] CT Chest Pulmonary Embolism with Contrast (07/08/2021 1:38 PM KNITTING INSPECTOR) Anatomical Region Laterality Modality Chest Computed Tomography Specimen Impressions [id number] - 07/08/2021 2:09 PM KNITTING INSPECTOR There are no pulmonary emboli. There are new findings in the left lower lobe raising the possibility of aspiration/pneumonia. Narrative [id number] - 07/08/2021 2:09 PM KNITTING INSPECTOR FULL RESULT: Examination: CT CHEST PULMONARY EMBOLISM [...] Organization Address City/State/ZIP Code Phon e Number [id number] XR Abdomen AP (07/08/2021 1:31 PM KNITTING INSPECTOR) Anatomical Region Laterality Modality Abdomen Digital Radiography Specimen Impressions [id number] - 07/08/2021 1:34 PM KNITTING INSPECTOR Feeding tube tip overlying the gastric f undus. Recommend further advancement. 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 Technique: XR ABDOMEN AP Findings: Feeding tube is seen with tip overlying the gastric fundus. Recommend further advancement. Procedure Note La Segal MD - FULL RESULT: Examination: XR ABDOMEN AP on [...] Organization Address City/State/ZIP Code Phon e Number [id number] (ABNORMAL) POC Chem 8 without Hemoglobin and Hematocrit (07/08/2021 12:14 PM KNITTING INSPECTOR) POC NA 131 (L) 138 - 146 [...] 18 and older. According to the National [facility]'s Kidney Disease Outcome Quality Initiative (KDOQI) classification [...] 18 and older. According to the National [facility]'s Kidney Disease Outcome Quality Initiative (KDOQI) classification [...] Clean Dev Yes POC TELCOR [facility]: [facility] Clinical Lab, [address] [place] [id number]; Paper Novelty Maker: Loida Chavez MD Specimen Blood Performing Organization Address City/[facility] Code Phon e Number POC TELCOR POC Critical (07/08/2021 12:14 PM KNITTING INSPECTOR) Pathologist Sig nature POC Critical Comment See NoteComment: POC TELCOR Test performer notified Ordering Licensed Provider and /or designee of POC Potassium critical Results. Specimen Blood Performing Organization Address [facility] Phon e Number POC TELCOR (ABNORMAL) Procalcitonin (07/08/2021 12:13 PM KNITTING INSPECTOR) Procalcitonin 0.15 (H) <=0.08 ng/mL [facility] Comment: CANCER CENTER Procalcitonin > 2.00 ng/mL: Procalcitonin levels [...] with extended dilution as it exceeds the assembly member's recommended limit. Caution should be exercised when interpreting such values and done in conjunction with clinical context. Specimen Blood Performing Organization Address [facility] Phon e Number [facility] CANCER Unless otherwise noted, [address] all lab tests performed by: Division of Pathology and Laboratory Medicine [facility] (ABNORMAL) Cardiac Panel (07/08/2021 12:13 PM KNITTING INSPECTOR) CK 112 39 - 308 U/L [facility] CK MB 2.4 <=10.4 ng/mL [facility] Troponin T 36 (H) <=18 ng/L [facility] Comment: CANCER CENTER < 19 ng/L Suggest [...] low results. Specimen Blood Performing Organization Address City/[facility] Phon e Number [facility] Unless otherwise noted, [address] all lab tests performed by: Division of Pathology and Laboratory Medicine [address] [facility] ([facility]NORMAL) D Dimer (07/08/2021 12:13 PM KNITTING INSPECTOR) Pathologist [facility] D-Dimer 0.77 (H) 0.10 - 0.50 [facility] Comment: mcg/ml FEU [facility] Rechecked and Verified The cut off value for exclusion of venous thromboembol ism is <0.51 mcg/mL FEUs (fibrinogen equivalent units). Specimen Blood Performing Organization Address City/[facility] Phon e Number [facility] CANCER Unless otherwise noted, [address] all lab tests performed by: Division of Pathology and Laboratory Medicine [address] [facility] X-ray Chest 1 View (07/08/2021 11:38 AM KNITTING INSPECTOR) Anatomical Region Laterality Modality Chest Digital Radiography Specimen Impressions [id number] - 07/08/2021 11:41 AM KNITTING INSPECTOR No acute infiltrates are visualized. Narrative [id number] - 07/08/2021 11:41 AM KNITTING INSPECTOR FULL RESULT: Examination: XR CHEST 1 VW, [...] acute infiltrates are visualized. Performing Organization Address City/State/ZIP Code Phon e Number [id number] CT Head without Contrast (07/08/2021 11:05 AM KNITTING INSPECTOR) Anatomical Region Laterality Modality Head Computed Tomography Specimen Impressions [id number] - 07/08/2021 11:37 AM KNITTING INSPECTOR No acute intracranial abnormality. Narrative [id number] - 07/08/2021 11:37 AM KNITTING INSPECTOR FULL RESULT: EXAMINATION: CT HEAD WO CONTRAST [...] No acute intracranial abnormality. Performing Organization Address [facility] Phon e Number [id number] (ABNORMAL) NT-Pro BNP (In-House) (06/22/2021 11:54 AM KNITTING INSPECTOR) Pathologist Sig nature NT ProBNP 1,199 (H) <=125 pg/mL [facility] Specimen Blood Performing Organization Address [facility] Phon e Number [facility] CANCER Unless otherwise noted, [address] all lab tests performed by: Division of Pathology and Laboratory Medicine [address] [facility] CK[facility] (06/22/2021 11:54 AM KNITTING INSPECTOR) Pathologist Sig nature CK MB 2.6 <=10.4 ng/mL [facility] Specimen Blood Performing Organization Address [facility] Phon e Number [facility] CANCER Unless otherwise noted, [address] all lab tests performed by: Division of Pathology and Laboratory Medicine [address] Creatine Kinase (06/22/2021 11:54 AM KNITTING INSPECTOR) Pathologist Sig nature CK 84 39 - 308 U/L [facility] Specimen Blood Performing Organization Address [facility] Phon e Number [facility] CANCER Unless otherwise noted, [address] all lab tests performed by: Division of Pathology and Laboratory Medicine [address] Head/Neck Simulation without Contrast (06/21/2021 9:00 AM KNITTING INSPECTOR)Only the most recent of2 resultswithin the time period is included. Anatomical Region Laterality Modality Head, Neck Computed Tomography Specimen Narrative Systemgenerated, Documentation - 022 9:00 AM KNITTING INSPECTOR This procedure requires no interpretatio n from the radiologist. COVID-19 (MAURA-CoV-2) PCR Asymptomatic (05/11/2021 9:05 AM KNITTING INSPECTOR)Only the most recent of2 resultswithin the time period is included. COVID19 SARS Pre-Out of OR [facility] Indication Procedure CANCER CENTER COVID19 SARS Result Not Detected Not Detected [facility] COVID19 SARS SARS-CoV-2 NOT Detected. [facility] Interpretation CANCER [place] Reference Range: Not Detected Methodology: The [employer] Real Time SARS-CoV-2 assay is a qualitative real-time reverse manager costing polymerase chain reaction (group product manager-PCR) test to detect RNA from SARS-CoV-2 in nasal, nasopharyngeal and oropharyngeal swabs from patients with signs and symptoms of infection who ar e suspected of COVID-19 by their health care provider. The [employer] RealTime SARS-CoV-2 performed on the Fullscreen000 System is a dual target assay with [...] high- complexity Molecular Diagnostics Laboratory (MDL) at [facility] under the Food and Drug Administration (FDA) s Emergency Use Authorization. Factsheet for patients: https://www.md[facility]erson.org/Abb ottFactSheetPatients Factsheet for healthcare pro viders: https://www.[facility].org/AbbottFactSheetHCP Test performed by: [facility] [address] [place] [address] Specimen Nasopharyngeal Swab Performing Organization Address City/State/ZIP Code Phon e Number [facility] CANCER Unless otherwise noted, [address] all lab tests performed by: Division of Pathology and Laboratory Medicine [address] Orthopantogram (05/06/2021 10:53 AM KNITTING INSPECTOR) Anatomical Region Laterality Modality Other Specimen Narrative Systemgenerated, Documentation - 021 10:53 AM KNITTING INSPECTOR This procedure requires no interpretatio n from the radiologist. ORGANIC SECTION TECHNICAL LEAD Videostroboscopy (05/06/2021 9:58 AM KNITTING INSPECTOR) Narrative OLYMPUS - 05/06/2021 9:58 AM KNITTING INSPECTOR Sara Harris, PhD 05/06/2021 10:12 AM ORGANIC SECTION TECHNICAL LEAD Videostroboscopy Laterality (if applicable): right Date/Time: 05/06/2021 9:58 AM Provider Information: Performed by: Sara Harris, PhD Authorized by: OUMAR Staples Indication: Indications for procedure: abnormal symp paulo Abnormal symptom: dysphonia Anesthesia: Local anesthesia used?: local anesthesia used Anesthesia: topical application Local anesthetic: lidocaine spray Sedation: Patient sedated?: patient not sedated Performing Organization Address City/State/ZIP Code Phon e Number OLYMPUS Glucose, Random (05/04/2021 11:10 AM KNITTING INSPECTOR) Glucose Random 136 70 - 199 mg/dL [facility] Comment: CANCER CENTER Effective 12/29/15, the gluco se reference intervals have been updated based on [place] [employer] guidelines (Standards of Medical Care in Diabetes 2016. Diabetes Care 2016; 39: S13-S22). Fasting blood glucose: Normal: 70-99 mg/dL Impaired fasting glucose (in creased risk for diabetes or pre-diabetes): 100- 125 mg/dL Diabetes mellitus: >/=126 mg/dL Random blood glucose: Normal: 70-199 mg/dL Note: Random glucose >100 mg/dL is assoc iated with increased risk for diabetes Specimen Blood Narrative [facility] - 12:55 PM KNITTING INSPECTOR Not fasting Performing Organization Address City/State/ZIP Code Phon e Number [facility] CANCER Unless otherwise noted, [address] all lab tests performed by: Division of Pathology and Laboratory Medicine [address] [place] [address] Vitamin D 25OH (05/04/2021 11:10 AM KNITTING INSPECTOR) Pathologist [facility] Vitamin D 25 OH 42 30 - 100 ng/mL [facility] Comment: CANCER CENTER Reference Range: Deficiency: <10 ng/mL Insufficiency: 10-29 ng/mL Sufficiency: 30-100 ng/mL Potential toxicity: >100 ng/mL Specimen Blood Performing Organization Address City/[facility] Phon e Number [facility] CANCER Unless otherwise noted, [address] all lab tests performed by: Division of Pathology and Laboratory Medicine [address] [place] [address] TMP HCV Ab Path Interp (05/03/2021 8:26 AM KNITTING INSPECTOR) Pathologist [facility] HCV Ab Path There is NO serologic evidence of Hepatitis C vi autumn antibody. [facility] Interp Comment: CENTER RUFINO FERNANDEZ, Dictated by: RUFINO FERNANDEZ, Dictated Date/Time: 05.04.20 6:33 AM KNITTING INSPECTOR Transcribed Date/Time: 05.04.2021 6:33 AM KNITTING INSPECTOR Electronically Signed By: RUFINO FERNANDEZ, on 1 07.05.2020 6:33 AM C Specimen Blood Performing Organization Address [facility] Phon e Number [facility] [address] [place] [phone] Hepatitis C Virus Ab (05/03/2021 8:26 AM KNITTING INSPECTOR) Pathologist [facility] HCVAb. Non Reactive Non Reactive [facility] Comment: CENTER Antibody detection in the im munocompromised and immunosuppressed population may be delayed or absent entirely. Therefore serial testing, correlation with other clinical findings, and supplemental testin g (if available) should be taken into consideration when interpreting the results. Performed at: [facility] [address] [place] [id number] Specimen Blood Performing Organization Address [facility] Phon e Number [facility] [address] [place] [phone] TSH (05/03/2021 8:26 AM KNITTING INSPECTOR) Pathologist Sig nature TSH 3.71 0.27 - 4.20 mcunit/mL [facility] CAN ER CENTER Specimen Blood Performing Organization Address City/State/ZIP Code Phon e Number [facility] CANCER Unless otherwise noted, [address] all lab tests performed by: Division of Pathology and Laboratory Medicine [address] Free T4 (05/03/2021 8:26 AM KNITTING INSPECTOR) Pathologist Sig nature T4 Free 1.46 0.93 - 1.70 ng/dL [facility] CANCER C ENTER Specimen Blood Performing Organization Address City/[facility] Phon e Number [facility] CANCER Unless otherwise noted, [address] all lab tests performed by: Division of Pathology and Laboratory Medicine 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 Narrative [id number] - 05/03/2021 1:54 PM KNITTING INSPECTOR FULL RESULT: Examination: CT SOFT TISSUE NECK W CONTR AST on 05/03/2021 7:27 AM Clinical History: Untreated laryngeal ca rcinoma, status post biopsy elsewhere Indication: Baseline [facility] imaging assessment. Comparison: Outside PET/CT [...] rcinoma, status post biopsy elsewhere Indication: Baseline [facility] imaging assessment. Comparison: Outside PET/CT 04/07/2021 Technique: [...] Organization Address City/State/ZIP Code Phon e Number [id number] CT Chest with Contrast (05/03/2021 7:27 AM KNITTING INSPECTOR) Anatomical Region Laterality Modality Chest Computed Tomography Specimen Impressions [id number] - 05/03/2021 1:02 PM KNITTING INSPECTOR There are numerous small bilateral pulmo nary nodules that are likely secondary to inflammatory/ infectious process, however follow-up is recommended to evaluate resolution (3 months). Narrative [id number] - 05/03/2021 1:02 PM KNITTING INSPECTOR FULL RESULT: Examination: CT CHEST W CONTRAST, [...] Organization Address City/State/ZIP Code Phon e Number [id number] POC Creatinine (05/03/2021 6:56 AM KNITTING INSPECTOR) POC Crea 1.2 0.6 - 1.3 POC [facility] Comment: mg/dL Medications, especially hydr oxyurea or supplements, such as ascorbate, can interfere with test results causing a falsely and significantly higher result than expected. If a problem is suspected with a patient's result, a sample should be sent to the laboratory for confirmatory testing. Method description: The [employer] is an analyzer used for in [...] OP CTRComment: POC [facility] Radiology OP CTR [facility] [place] [address]; Point of Care Paper Novelty Maker: Brooke Owens MD Specimen Blood Performing Organization Address City/State/ZIP Code Phon e Number POC [facility] OSI PET CT Skull to Mid Thigh (04/07/2021 1:24 PM CDT) Anatomical Region Laterality Modality Head Other Specimen Narrative Systemgenerated, Documentation - 1:24 PM KNITTING INSPECTOR Study acquired at another institution. For comparison only. No [facility] originated interpretation requested or a vailable. Pathology Outside Interpretation (03/28/2021) Pathologist Sig nature Materials Received Accession#, Stained, Block, Unstained Collect ed Received [facility] A. [id number], 6 SS, 0 BLOCKS, 0 USS 03/28/2021 Addendum 1 Additional material received on 05/25/2021, Outside 0 SS, 3 BLOCK, 0 USS, collected on 03/28/2021. [facility] Addendum electronically signed Deeper levels of block (21:[id number]) were examined. The original diagnosis remains unchanged. by Rigo Pritchard MD on 06/13/2021 at 2 :17 PM Diagnosis Outside ([id number], 6 SS): [facility] E lectronically signed by Rigo Gallardo Larynx, right arytenoid, biopsy (A): MD [place] on SQUAMOUS CELL CARCINOMA, suspicious for invasion 04/21/2021 at 4:09 PM Larynx, left arytenoid, biopsy (B): Squamous mucosa with chronic inflammation, negative fo r tumor Larynx, left false vocal cord, biopsy (C): Squamous mucosa and minor salivary gland, negative for tumor [facility]/N Stock Controller(s) Dr. Marisela Hollingsworth [facility] has reviewed part A and concurs. Biomarker Block(s) T: A [facility] N: C Disclaimer "Some tests reported [facility] here may have been developed and performance characteristics determined by [facility] Pathology and Laboratory Medicine. These tests have not been specifically cleared or approved by the U.S. Food and Drug Administration. If applicable, controls were reviewed and showed appropriate reactivity." Specimen Tissue Performing Organization Address City/State/ZIP Code Phon e Number [facility] [place] [address] [address] OSI Chest (03/24/2021 1:24 PM CDT) Anatomical Region Laterality Modality Chest Other Specimen Narrative Systemgenerated, Documentation - 021 1:24 PM KNITTING INSPECTOR Study acquired at another institution. For comparison only. No [facility] originated interpretation requested or a vailable. after 09/05/2020 Insurance Payer Benefit Plan Subscriber ID Effective Phone Address Typ e / Group Dates MEDICARE MEDICARE PART [id number] 2014-Prese [phone] [facility] Medicare A AND B nt 82 SOLUTIONS [address] [place] [phone] [employer] OF [employer] OF [id number] 2015-Prese [id number] [facility] [place]GENY [place] [id number] Advance Directives Code Status Date Activated Date Inactivated Comments Full Code 08/26/2021 7:24 PM 08/31/2021 6:23 PM Full Code 08/25/2021 9:45 PM 08/26/2021 7:24 PM Full Code 07/08/2021 4:32 PM 07/12/2021 11:02 PM Care Teams Scroll Machine Operator Relationship Specialty Start Date End Date Olivia Coleman DO PCP - External Otolaryngology 04/13/21 [address] [place] [address] Slava Canseco, MILV[place] - General Radiation Oncology 04/25/[address] [place] [phone] Yumi Desir MD Consulting Physician Head and Neck Medical 05/13/[address] [place] [address] [place] [address] Ene Polk MD Consulting Physician Head and Neck Surgery 05/13/[address] [place] [address] [phone] Camilla Davenport, Clinical Dietitian Nutrition 07/19/[address] [place] [address] [phone] Anca Maurer, Nurse Practitioner Head and Neck Medical 08/15/21 CREAM CHEESE MAKER Oncology [facility]5 [place], [place] [id number]
--- OUTSIDE RECORDS SUMMARY | 2021-09-05 09:13 | XMS REPORT | Continuity of Care Document ---
:1950 Author Organization [facility] t Address [address] Black [address] [place] [id number] Care Team Providers Name Role Phone [phone] Primary Care Physician Unavailable ZANDRA Attending Clinician Unavailable Arnaldo Bullard Attending Clinician Unavailable SYSTEM, NOT IN Attending Clinician Unavailable Eunice OSEGUERA Attending Clinician Dejan BOWENS J Attending Clinician Unavailable Edvin CRAWLEY B Attending Clinician Elza Ferrell MD Attending Clinician Nirmal Rain MD. Attending Clinician Wendi CRAWLEY Attending Clinician Rajendra Brooks MD Attending Clinician Rachid CRAWLEY Attending Clinician Sienna CRAWLEY Attending Clinician SIENNA Attending Clinician Unavailable ALOK ARIZA Attending Clinician Unavailable Miguel Lam MD. Attending Clinician Callum TALBOT-TABLEMAN, M Attending Clinician Unavailable Duran Deras MD. Attending Clinician Delbert MATHUR Attending Clinician Pb TORO Attending Clinician Unavailable Harman BARRIGA Attending Clinician Miguel PEREZ Attending Clinician Unavailable Alok Ariza MD Attending Clinician Carina CCC-TABLEMAN Attending Clinician Gloria BOWENS, M Attending Clinician Miguel Buck Attending Clinician Stephanie CCC-TABLEMAN, M Attending Clinician Unavailable EUNICE Attending Clinician Unavailable Erasto BETH H Attending Clinician Miguel Reyes RN. Attending Clinician Unavailable Piero CRAWLEY Attending Clinician Kaci, H Attending Clinician Unavailable Ethel BOWEN, Nirmal Attending Clinician Fermin Attending Clinician GERDA Attending Clinician Unavailable Gerda CRAWLEY Attending Clinician Christina CRAWLEY Attending Clinician Maryse Knight MD Attending Clinician Zandra CRAWLEY Attending Clinician WENDI Attending Clinician Unavailable Leobardo BOWENS Attending Clinician Leela BOWENS, S Attending Clinician Unavailable Loulou Cruz RD Attending Clinician Thomas Goodrich RN Attending Clinician Unavailable Yajaira BOWENS Attending Clinician Unavailable Cathleen CCC-TABLEMAN, L Attending Clinician Unavailable Marisela Bonilla MD Attending Clinician Francisco BOWENS C Attending Clinician Unavailable Kerline Arrington Attending Clinician PADMINI Attending Clinician Unavailable JEREL Attending Clinician Unavailable Jerel CRAWLEY Attending Clinician Katie BOWENS, B Attending Clinician Unavailable Savannah Polk PharmD Attending Clinician Samantha POLK Attending Clinician Unavailable Samantha Polk MD Attending Clinician Kathy CCC-TABLEMAN, E Attending Clinician Katty BOWENS, N Attending Clinician Unavailable Melvina CRAWLEY S Attending Clinician SHAGUFTA PRUITT Attending Clinician Unavailable Favio CRAWLEY, Shagufta Attending Clinician Maine CRAWLEY Attending Clinician MAINE Attending Clinician Unavailable JANAE Attending Clinician Unavailable Galo BOWENS Attending Clinician Unavailable Jacob BOWENS, Elza Attending Clinician Unavailable Patrick CRAWLEY, Dulce Attending Clinician Rico [facility], H Attending Clinician Unavailable Melita OSEGUERA Attending Clinician Denny GARCIA Attending Clinician Unavailable Travis, R Attending Clinician Unavailable Zahra CRAWLEY PhD, Diana Attending Clinician BRAD Attending Clinician Unavailable MED Attending Clinician Unavailable Med CRUZ Attending Clinician Steven PhD, A Attending Clinician Josse CRAWLEY, Vadim Attending Clinician Darrick RN, A Attending Clinician Troy CRAWLEY, Mallika Attending Clinician Ezra CRAWLEY, Pb Attending Clinician Dawit CRAWLEY Attending Clinician WENDI Admitting Clinician Unavailable MARYSE KNIGHT Admitting Clinician Unavailable Payers Payer Name Policy Type Policy Number Effective Date Expiration Date S laura MEDICARE PART A [id number] 2014 AND B 00:00[id number] 2015 00:00:00 Problems Condition Condition Condition Status Onset Resolution Last Treating Co mments Source Name Details Category Date Date Treatment Clinician Date Melena Melena Disease Active 3-25 Anderso 00:00: n 00 Anemia Anemia Disease Active 2021- 3-24 Anderso 00:00: n 00 Aspiration Aspiration Disease Active M D pneumonia pneumonia 2-06 Arthur rso 00:00: n 00 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 06-29 An derso brent kennedy 00:00: n malnutriti malnutriti 00 on on Swallowing Swallowing Disease Active M D painful painful -05 Anderso 00:00: n 00 Hypomagnes Hypomagnes Disease Active M D emia emia -05 Anderso 00:00: n 00 Bilateral Bilateral Disease Active tinnitus tinnitus -05 Chucky o 00:00: n 00 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 08 An derso lung lung 00:00: n 00 Nicotine Nicotine Disease Active 2020-06 MD dependence dependence 06 An derso 00:00: n 00 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 2020-06 M D ryngeal ryngeal 06-26 Anderso reflux reflux 00:00: n 00 Essential Essential Disease Recurre hypertensi hypertensi nce 5-15 An derso on on 00:00: n 00 Coronary Coronary Disease Recurre MD arterioscl arterioscl nce 5-09 An derso erosis erosis 00:00: n 00 Chronic Chronic Disease Recurre 2015-06 obstructiv obstructiv nce -23 An derso e e 00:00: n pulmonary pulmonary 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 1-22 Chucky o mellitus mellitus 00:00: n without without 00 complicati complicati on on Acute Acute Disease Resolve 2021-08-27 2021-08-27 MD hypoxemic hypoxemic d 2- 00:00:00 14:15:25 Anderso respirator respirator 00:00: n y failure y failure 00 Disorder Disorder Disease Resolve 2021-08-27 2021-08-27 MD of fluid of fluid d 2- 00:00:00 14:15:36 An derso AND/OR AND/OR 00:00: n electrolyt electrolyt 00 e e Syncope Syncope Disease Resolve 2021-08-27 2021-08-27 MD d 2-04 00:00:00 14:15:54 Chucky o 00:00: n 00 Serum Serum Disease Resolve 2021-08-27 2021-08-27 creatinine creatinine d 06-08 00:00:00 14:15:51 Anderso raised raised 00:00: n 00 Thick Thick Disease Resolve 2021-06-29 2021-06-29 sputum [...] 00 Intermitte Intermitte Disease Resolve 2021-06-29 2021-06-29 nt nt d 06-29 00:00:00 13:44:51 Chucky o claudicati claudicati 00:00: n on on 00 Iron Iron Disease Resolve 2021-06-29 2021-06-29 MD deficiency deficiency d 06-29 00:00:00 13:44:54 Anderso anemia anemia 00:00: n 00 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 06-29 00:00:00 13:44:57 Anderso emia emia 00:00: n 00 Obese Obese Disease Resolve 2021-06-29 2021-06-29 MD d 06-29 00:00:00 13:45:01 Chucky o 00:00: [...] Active Info Not [facility] Reaction Available [facility] Family History Family Member Diagnosis Comments Start Date Stop Date Source Natural mother Breast cancer MD Gibson rson Social History Social Habit Start Date Stop Date Quantity Comments Source History of tobacco 1974-05-09 Smokes tobacco MD Dorantes use 00:00:00 daily Exposure to Not sure MD Dorantes SARS-CoV-2 (event) Alcohol intake 2021-08-31 2021-08-31 Ex-drinker MD Jeanmarie patel 00:00:00 00:00:00 (finding) Tobacco Comment 2021-07-19 2021-07-19 working on MD Locke on 00:00:00 00:00:00 quitting, currently cut down to 4 cpd Cigarettes smoked 2021-04-26 2021-04-26 MD Arthur matamoros [...] Date Date Medication? Clinician (SIG) Name Name albuterol Yes 2{puff} Inhale 2 M D (VENTOLIN 3-30 puffs by Chucky o HFA,PROAIR 16:18: mouth n HFA) 90 20 every 6 mcg/puff (six) inhaler hours as needed. budesonide- Yes 2{puff} Inhale 2 MD formoterol 3-30 puffs by Jorge so (SYMBICORT) 16:18: mouth n 160-4.5 20 twice mcg/actuati daily. on inhaler Patient usually does it once a day at night. nutritional Yes Aspiration 375mL Give MD supplement 3-30 pneumonia 375-500 mL Anderso (nutren 00:00: per n 1.5) 00 NG-tube 3 enteral (three) tube times a feeding day with meals. pantoprazol Yes Aspiration 40mg Take 1 MD e 3-30 pneumonia tablet (40 Arthur rso (PROTONIX) 00:00: mg) by n 40 mg EC 00 mouth tablet every morning before breakfast. tadalafil 2021- No 20mg Take 20 mg M D (CIALIS) 20 3-28 03-28 by mouth. An derso mg tablet 13:49: 00:00 n 25 :00 gabapentin Yes Neuropathic TAKE ONE MD (NEURONTIN) 3-21 pain (1) Anderso 300 mg 00:00: CAPSULE(S) n capsule 00 BY MOUTH THREE TIMES A DAY. HYDROcodone Yes Oral 1{tbl} Take 1-2 MD -acetaminop 3-13 mucositis tablets by Anderso hen ([place]) 00:00: due to mouth n 5 mg-325 mg 00 radiation every 8 per tablet (eight) hours as needed for severe pain. Nicoderm CQ Yes Nicotine Apply 1-2 MD 21 mg/24 hr 3-03 dependence patches to Anderso transdermal 00:00: skin and n patch 00 change patch daily as directed for tobacco cessation (alternate sites). traMADol Yes Oral TAKE ONE MD (ULTRAM) 50 2-21 mucositis (1) TABLET Anderso mg tablet 00:00: due to (50 MG) BY n 00 radiation MOUTH EVERY 4 (FOUR) HOURS NEEDED FOR MODERATE PAIN OR SEVERE PAIN. amLODIPine Yes Essential 10mg Give 1 MD (NORVASC) 07-13 hypertensio tablet (10 Anderso 10 mg 00:00: n mg) per n tablet 00 NG-tube daily. folic acid Yes Folate 1mg Take 1 MD (FOLVITE) 1 -09 deficiency tablet (1 Anderso mg tablet 00:00: mg) by n 00 mouth daily. thiamine Yes Hypophospha 100mg Take 1 MD (VITAMIN 07-13 temia tablet Anderso B-1) 100 mg 00:00: (100 mg) n tab tablet 00 by mouth daily. amoxicillin 0 2021- No Aspiration 875mg Take 1 MD -clavulanat 2- 02-08 pneumonia tablet Anderso e 00:00: 00:00 (875 mg) n (Augmentin) 00 :00 by mouth 875 mg-125 daily for mg per 2 doses. tablet potassium-s Yes Hypophospha 1{packe Give 1 MD [...] 00 NG-tube mL solution daily. amoxicillin 2021- No Aspiration 875mg Take 1 MD -clavulanat 2-01 03-12 pneumonia tablet Anderso e 00:00: 05:59 (875 [...] blood pressure over 180, diastolic over 110). polyethylen Yes Constipatio 17g Take 17 g MD e glycol 1-26 n, not by mouth 3 And erso (GLYCOLAX) 00:00: otherwise (three) n 17 00 specified times a gram/dose day. powder senna-docus 2021- No Constipatio 1{tbl} Take 1-3 MD ate - 03-30 n, not tablets by Chucky o (SENOKOT-S) 00:00: 00:00 otherwise mouth n 8.6 mg-50 00 :00 specified twice mg tablet daily. glycopyrrol 2021- No Thick 1mg Take 1 MD ate -26 02-08 sputum tablet (1 Anderso (RobinuL) 1 00:00: 00:00 mg) by n mg tablet 00 :00 mouth 4 (four) times a day. rosuvastati 2021-0 Yes daily. MD n (CRESTOR) 1-22 Anderso 40 mg 00:00: n tablet 00 losartan 2021-0 Yes daily. MD (COZAAR) 1-21 Anderso 100 mg 00:00: n tablet 00 cloNIDine 2021- No Hypertensio .1mg Take 1 MD HCl 1-19 01-28 n tablet Anderso (Catapres) 00:00: 00:00 (0.1 mg) n 0.1 mg 00 :00 by mouth 3 tablet (three) times a day as needed for high blood pressure (Systolic blood pressure over 180, diastolic over 110). lidocaine Yes Oral 5mL Swish and MD (XYLOCAINE) 12 mucositis swallow 5 Anderso 20 mg/mL 00:00: due to mL every 4 n (2%) 00 radiation (four) viscous hours as solution needed (throat pain). magnesium Yes Hypomagnese 500mg Take 1 MD oxide 500 12 kaylen tablet Anderso mg tablet 00:00: (500 mg) n 00 by mouth daily. traMADol 2021- No Oral 50mg Take 1 MD (ULTRAM) 50 06-15- mucositis tablet (50 Anderso mg tablet 00:00: 00:00 due to mg) by n 00 :00 radiation mouth every 4 (four) hours as needed for moderate pain or severe pain. guaiFENesin 2021- No Thick 200mg Take 10 mL MD (ROBITUSSIN 06-13 sputum (200 mg) A nderso ) 100 mg/5 00:00: 00:00 by mouth 4 n mL syrup 00 :00 (four) times a day. Nicoderm CQ 2021- No Nicotine Apply 2 MD 21 mg/24 hr 06-08 03-03 dependence patch to Anderso transdermal 00:00: 00:00 skin and n patch 00 :00 change patch daily as directed for tobacco cessation (alternate sites). triamcinolo 2020-06 Yes Radiation 1{appli Apply 1 MD ne 07-26 dermatitis cation} applicatio Anderso (KENALOG) 00:00: n n ointment 00 topically 0.1% to affected area(s) twice daily. gabapentin 2020-06- No Neuropathic 300mg Take 1 MD (Neurontin) 07-26-21 pain capsule Arthur rso 300 mg 00:00: 00:00 (300 mg) n capsule 00 :00 by mouth 3 (three) times a day. ondansetron 2020-06- No Primary 8mg Take 1 MD (ZOFRAN) 8 [...] twice n 1.1 % 00 daily. dental [place] cream teeth with cream and spit out as directed. (Do not eat, drink or rinse for 30 minutes). metFORMIN 2020-06 Yes TAKE ONE MD (GLUCOPHAGE -16 (1) Anderso ) 500 mg 00:00: TABLET(S) n tablet 00 BY MOUTH TWICE A DAY. metoprolol 2020-06- No TAKE ONE MD tartrate 16 -08 (1) Anderso (LOPRESSOR) 00:00: 00:00 TABLET(S) n 50 mg 00 :00 BY MOUTH tablet TWICE A DAY WITH FOOD. losartan 2020-06- No 100mg Take 100 MD (COZAAR) 50 -13 01-26 mg by Chucky o mg tablet 00:00: 00:00 mouth n 00 :00 daily. Dexilant 60 2020-06 Yes TAKE ONE MD mg capsule 1-10 (1) Anderso 00:00: CAPSULE(S) n 00 BY MOUTH DAILY. montelukast 2020-06- No TAKE ONE M D (SINGULAIR) 1-04 03-30 (1) Anderso 10 mg 00:00: 00:00 TABLET(S) n tablet 00 :00 BY MOUTH ONCE A DAY. diazePAM 2020-06- No 5mg Take 5 mg MD (VALIUM) [...] 00 BY MOUTH ONCE A DAY. simvastatin 2020-06- No TAKE ONE M D (ZOCOR) 10 0-06 01-26 (1) Anderso mg tablet 00:00: 00:00 TABLET(S) n 00 :00 BY MOUTH EVERY EVENING. fenofibrate 2021- No TAKE ONE M D nanocrystal 9- 03-30 (1) Anderso lized 00:00: 00:00 TABLET(S) n (TRICOR) 00 :00 BY MOUTH 145 mg ONCE A tablet DAY. Metformin Metformin Yes Na Bullard [address] [facility] HCl HCl 7-02 with a [facility] meal [facility] Montelukast Montelukast Yes Na Bullard [address] [facility] Sodium Sodium 4-21 [facility] - 00:[facility]: [facility] ferrous 0 Yes MD sulfate 3-15 Anderso (iron) 325 00:00: n mg (65 mg 00 elemental iron per tablet) tablet aspirin 81 2009-06 Yes 81mg Take 81 mg M D mg EC 1-22 by mouth. Anderso tablet 00:00: n 00 Cialis Cialis Yes Na Bullard [address] [facility] Metoprolol Metoprolol Yes Na Bullard [address] [facility] Tartrate Tartrate with food [facility] - [facility] Dexilant Dexilant Yes Na Bullard TAKE ONE [facility] (1) [facility] - CAPSULE(S) [facility] BY MOUTH l ONCE A Outpati DAY. ent Clinics Plavix Plavix Yes Na Bullard [address] [facility] Plavix Plavix Yes Na Bullard [address] [facility] Ventolin Ventolin Yes Na Bullard [address] [facility] HFA HFA needed [facility] - [facility] Nicotine Nicotine Yes Na Bullard [address] [facility] Step 1 Step 1 skin [facility] Cetirizine Cetirizine Yes Na Bullard [address] [facility] HCl HCl [facility] - [facility] Cetirizine Cetirizine Yes Na Bullard TAKE ONE [facility] HCl HCl (1) [facility] - TABLET(S) [facility] BY MOUTH l ONCE [facility] DAY. ent Clinics Simvastatin Simvastatin Yes Na Bullard [address] [facility] in the [facility] - evening [facility] Nystatin Nystatin Yes Na Bullard [address] [facility] Fenofibrate Fenofibrate Yes Na Bullard [address] [facility] with food [facility] Symbicort Symbicort Yes Na Bullard [address] [facility] Flonase Flonase Yes Na Bullard [address] [facility] each [facility] - nostril [facility] Immunizations Ordered Immunization Filled Immunization Date Status Commen ts Source Name Name Moderna SARS-CoV-2 2021-04-16 Completed MD And erson Booster Vaccination 00:00:00 Moderna SARS-CoV-2 2020-08-07 Completed MD And erson Vaccination 00:00:00 Moderna SARS-CoV-2 2020-07-10 Completed MD And erson Vaccination 00:00:00 Vital Signs Vital Name Observation Time Observation Value Comments Source Systolic blood pressure 2021-08-31 18:09:19 140 mm[Hg] MD Dorantes Diastolic blood pressure 2021-08-31 18:09:19 55 mm[Hg] MD Dorantes Heart rate 2021-08-31 18:09:19 89 /min MD Jorge bundy Body temperature 2021-08-31 18:09:19 36.28 Yocasta MD Nirmal larson Respiratory rate 2021-08-31 18:09:19 20 /min MD Nirmal larson Oxygen saturation in 2021-08-31 18:09:19 96 /min MD Dorantes Arterial blood by Pulse oximetry Body weight 2021-08-31 09:07:19 64.9 kg MD Jorge bundy BMI 2021-08-31 09:07:19 24.43 kg/m2 MD Patel son Body height 2021-08-27 02:25:00 163 cm MD Jorge bundy Procedures Procedure Date / Time Performed Performing Clinician [facility] e POC GLUCOSE SCREEN 2021-08-31 15:15:00 Davis Rush MD on BASIC METABOLIC PANEL, 2021-08-31 09:26:00 ThoppilLeida MDrsdeya CALCIUM TOTAL MAGNESIUM LEVEL 2021-08-31 09:26:00 ThoppilLeida MD PHOSPHORUS LEVEL 2021-08-31 09:26:00 Thoppil, Leida patel COMPLETE BLOOD COUNT W/ 2021-08-31 09:26:00 ThoppilLeida MD DIFFERENTIAL GLUCOSE LEVEL 2021-08-31 09:26:00 ThoppilLeida MD BLOOD UREA NITROGEN 2021-08-31 09:26:00 ThoppilLeida MD Arthur rson ELECTROLYTE PANEL 2021-08-31 09:26:00 ThoppilLeida MD on SERUM CREATININE 2021-08-31 09:26:00 Thoppil, Leida patel .GLOMERULAR FILTRATION RATE 2021-08-31 09:26:00 ThoppilLeida MD CALCIUM LEVEL TOTAL 2021-08-31 09:26:00 ThoppilLeida MD Arthur rson Results CBC 2021-08-31 09:26:00 ThoppilLeida MD MANUAL DIFFERENTIAL 2021-08-31 09:26:00 ThoppilLeida MD Arthur rson POC GLUCOSE SCREEN 2021-08-31 03:06:00 Davis Rush MD on POC GLUCOSE SCREEN 2021-08-30 21:50:00 Davis Rush MD on FL MODIFIED BARIUM SWALLOW W 2021-08-30 20:15:38 Robert Rashid MD SPEECH POC GLUCOSE SCREEN 2021-08-30 17:35:00 Davis Rush MD on POC GLUCOSE SCREEN 2021-08-30 12:52:00 Sienna, Davis Locke on MANUAL DIFFERENTIAL 2021-08-30 09:36:00 Thoppil, Leida Hargrove MD Arthur rson BASIC METABOLIC PANEL, 2021-08-30 09:36:00 Thoppil, Leida Kinney nderson CALCIUM TOTAL MAGNESIUM LEVEL 2021-08-30 09:36:00 Thoppil, Leida Dorantes PHOSPHORUS LEVEL 2021-08-30 09:36:00 Thoppil, Leida Hargrove MD Anderso n COMPLETE BLOOD COUNT W/ 2021-08-30 09:36:00 Thoppil, Leida Dorantes DIFFERENTIAL GLUCOSE LEVEL 2021-08-30 09:36:00 Thoppil, Leida Dorantes BLOOD UREA NITROGEN 2021-08-30 09:36:00 Thoppil, Leida Hargrove MD Arthur rson ELECTROLYTE PANEL 2021-08-30 09:36:00 Thoppil, Leida Locke on SERUM CREATININE 2021-08-30 09:36:00 Thoppil, Leida Hargrove MD Andreginaldo n .GLOMERULAR FILTRATION RATE 2021-08-30 09:36:00 Thoppil, Leida Dorantes CALCIUM LEVEL TOTAL 2021-08-30 09:36:00 Thoppil, Leida Hargrove MD Arthur rson Results CBC 2021-08-30 09:36:00 Thoppil, Leida Dorantes POC GLUCOSE SCREEN 2021-08-30 03:07:00 Sienna, Davis Locke on XR ABDOMEN 1 VW PORTABLE 2021-08-29 23:11:44 Sienna, Davis Dorantes POC GLUCOSE SCREEN 2021-08-29 22:46:00 Sienna, Davis Locke on POC GLUCOSE SCREEN 2021-08-29 21:32:00 Sienna, Davis Locke on PATHOLOGY BIOPSY 2021-08-29 19:14:00 Michael Lam MD INTERPRETATION DIAGNOSTIC UPPER 2021-08-29 18:46:00 Michael Lam MD GASTROINTESTINAL ENDOSCOPY DIAGNOSTIC FLEXIBLE 2021-08-29 18:46:00 Michael Lam MD Arthur rson COLONOSCOPY PROXIMAL TO SPLENIC FLEXURE POC GLUCOSE SCREEN 2021-08-29 18:22:00 Davis Rush MD on POC GLUCOSE SCREEN 2021-08-29 15:21:00 Davis Rush MD on BASIC METABOLIC PANEL, 2021-08-29 10:31:00 ThoppilLeida MDrson CALCIUM TOTAL MAGNESIUM LEVEL 2021-08-29 10:31:00 ThoppilLeida MD PHOSPHORUS LEVEL 2021-08-29 10:31:00 Thoppil, Leida patel COMPLETE BLOOD COUNT W/ 2021-08-29 10:31:00 ThoppilLeida MD DIFFERENTIAL PROTHROMBIN TIME 2021-08-29 10:31:00 Robert Rashid MD GLUCOSE LEVEL 2021-08-29 10:31:00 Thoppil, Leida Dorantes BLOOD UREA NITROGEN 2021-08-29 10:31:00 Thoppil, Leida Hargrove MD Arthur rson ELECTROLYTE PANEL 2021-08-29 10:31:00 ThoppilLeida MD on SERUM CREATININE 2021-08-29 10:31:00 Thoppil, Leida patel .GLOMERULAR FILTRATION RATE 2021-08-29 10:31:00 Thoppil, Leida Dorantes CALCIUM LEVEL TOTAL 2021-08-29 10:31:00 ThoppilLeida MD Arthur rson Results CBC 2021-08-29 10:31:00 ThoppilLeida MD MANUAL DIFFERENTIAL 2021-08-29 10:31:00 ThoppilLeida MD Arthur rson POC GLUCOSE SCREEN 2021-08-29 02:15:00 Robert Rashid MD on POC GLUCOSE SCREEN 2021-08-28 21:24:00 Robert Rashid MD on POC GLUCOSE SCREEN 2021-08-28 13:49:00 Robert Rashid MD on BASIC METABOLIC PANEL, 2021-08-28 08:13:00 ThoppilLeida MD nderson CALCIUM TOTAL MAGNESIUM LEVEL 2021-08-28 08:13:00 ThoppilLeida MD PHOSPHORUS LEVEL 2021-08-28 08:13:00 ThoppilLeida MD COMPLETE BLOOD COUNT W/ 2021-08-28 08:13:00 ThoppiLeida cole MD DIFFERENTIAL GLUCOSE LEVEL 2021-08-28 08:13:00 ThoppilLeida MD BLOOD UREA NITROGEN 2021-08-28 08:13:00 ThoppilLeida MD Arthur rson ELECTROLYTE PANEL 2021-08-28 08:13:00 ThoppilLeida MD on SERUM CREATININE 2021-08-28 08:13:00 ThopLeida waddell MD .GLOMERULAR FILTRATION RATE 2021-08-28 08:13:00 ThoppiLeida cole MD CALCIUM LEVEL TOTAL 2021-08-28 08:13:00 ThoppilLeida MD Arthur rson Results CBC 2021-08-28 08:13:00 ThoppilLeida MD MANUAL DIFFERENTIAL 2021-08-28 08:13:00 ThoppilLeida MD Arthur rson POC GLUCOSE SCREEN 2021-08-28 03:20:00 Robert Rashid MD on POC GLUCOSE SCREEN 2021-08-27 18:30:00 Robert Rashid MD on POC GLUCOSE SCREEN 2021-08-27 13:47:00 Robert Rashid MD on BASIC METABOLIC PANEL, 2021-08-27 09:47:00 ThoppilLeida MD nderson CALCIUM TOTAL MAGNESIUM LEVEL 2021-08-27 09:47:00 ThoppilLeida MD PHOSPHORUS LEVEL 2021-08-27 09:47:00 ThoppiLeida cole MD COMPLETE BLOOD COUNT W/ 2021-08-27 09:47:00 ThoppiLeida cole MD DIFFERENTIAL GLUCOSE LEVEL 2021-08-27 09:47:00 Susan Tadeo MD And erson BLOOD UREA NITROGEN 2021-08-27 09:47:00 Susan Tadeo MD ELECTROLYTE PANEL 2021-08-27 09:47:00 Susan Tadeo MDrson SERUM CREATININE 2021-08-27 09:47:00 Susan Tadeo MD .GLOMERULAR FILTRATION RATE 2021-08-27 09:47:00 Susan Tadeo MD CALCIUM LEVEL TOTAL 2021-08-27 09:47:00 Susan Tadeo MD Results CBC 2021-08-27 09:47:00 Susan Tadeo MD And erson MANUAL DIFFERENTIAL 2021-08-27 09:47:00 Susan Tadeo MD POC GLUCOSE SCREEN 2021-08-27 01:25:00 Susan Campos MD And erson POC GLUCOSE SCREEN 2021-08-26 21:49:00 Susan Campos MD And erson POC GLUCOSE SCREEN 2021-08-26 17:17:00 Olegario Rain MD nderson POC GLUCOSE SCREEN 2021-08-26 13:44:00 Olegario Rain MD BASIC METABOLIC PANEL, 2021-08-26 13:10:00 Leida Frank MD CALCIUM TOTAL MAGNESIUM LEVEL 2021-08-26 13:10:00 Leida Frank MD PHOSPHORUS LEVEL 2021-08-26 13:10:00 Leida Frank MD Anderso n COMPLETE BLOOD COUNT W/ 2021-08-26 13:10:00 Leida Frank MD DIFFERENTIAL GLUCOSE LEVEL 2021-08-26 13:10:00 Susan Tadeo MD And erson BLOOD UREA NITROGEN 2021-08-26 13:10:00 Susan Tadeo MD ELECTROLYTE PANEL 2021-08-26 13:10:00 Susan Tadeo MD SERUM CREATININE 2021-08-26 13:10:00 Susan Tadeo MD .GLOMERULAR FILTRATION RATE 2021-08-26 13:10:00 Susan Tadeo MD CALCIUM LEVEL TOTAL 2021-08-26 13:10:00 Susan Tadeo MD Results CBC 2021-08-26 13:10:00 Susan Tadeo MD And naz MANUAL DIFFERENTIAL 2021-08-26 13:10:00 Susan Tadeo MD TRANSFUSE RED BLOOD CELLS 2021-08-26 09:17:00 Susan Tadeo MD TRANSFUSE RED BLOOD CELLS 2021-08-26 05:58:00 Susan Tadeo MD POC GLUCOSE SCREEN 2021-08-26 04:03:00 Olegario Rain MD CONFIRM ABORH TYPE 2021-08-25 23:19:00 Hilario Pardo MD Chucky on COVID-19 (SARS-COV-2) 2021-08-25 23:15:00 Bossman Castillo MD And naz ASYMPTOMATIC-LT TYPE AND SCREEN 2021-08-25 23:15:00 Bossman Castillo MD COMPREHENSIVE METABOLIC PANEL 2021-08-25 23:15:00 Bossman Castillo MD MAGNESIUM LEVEL 2021-08-25 23:15:00 Bossman Castillo MD PHOSPHORUS LEVEL 2021-08-25 23:15:00 Bossman Castillo MD PROTHROMBIN TIME 2021-08-25 23:15:00 Bossman Castillo MD APTT 2021-08-25 23:15:00 Bossman Castillo MD ABORH 2021-08-25 23:15:00 Bossman Castillo MD GLUCOSE LEVEL 2021-08-25 23:15:00 Bossman Castillo MD BLOOD UREA NITROGEN 2021-08-25 23:15:00 Bossman Castillo MD Jorge son ANTIBODY SCREEN 2021-08-25 23:15:00 Bossman Castillo MD ELECTROLYTE PANEL 2021-08-25 23:15:00 Bossman Castillo MD n SERUM CREATININE 2021-08-25 23:15:00 Bossman Castillo MD .GLOMERULAR FILTRATION RATE 2021-08-25 23:15:00 Bossman Castillo MD CALCIUM LEVEL TOTAL 2021-08-25 23:15:00 Bossman Castillo MD Jorge son ALBUMIN LEVEL 2021-08-25 23:15:00 Bossman Castillo MD ALKALINE PHOSPHATASE 2021-08-25 23:15:00 Bossman Castillo MD rson ALANINE AMINOTRANSFERASE 2021-08-25 23:15:00 Bossman Castillo MD ASPARTATE AMINOTRANSFERASE 2021-08-25 23:15:00 Bossman Castillo TOTAL PROTEIN 2021-08-25 23:15:00 Bossman Castillo MD FRACTIONATED BILIRUBIN 2021-08-25 23:15:00 Bossman Castillo MD An derson CLOT EXPIRATION DATE 2021-08-25 23:15:00 Bossman Castillo MD Arthur rsdeya TMP INTERPRETATION ANTIBODY 2021-08-25 23:15:00 Bossman Castillo MD SCREEN NEGATIVE TMP CROSSMATCH INTERPRETATION 2021-08-25 23:15:00 Bossman Castillo MD PREPARE RBC 2021-08-25 21:47:00 Susan Tadeo MD And ersdeya PRBC PRODUCT READY FOR PICK 2021-08-25 21:47:00 Bossman Castillo MD UP COMPLETE BLOOD COUNT W/ 2021-08-25 17:41:49 Davina Perez MD DIFFERENTIAL Results CBC 2021-08-25 17:41:49 Davina Perez MD MANUAL DIFFERENTIAL 2021-08-25 17:41:49 Davina Perez MD And erson XR CHEST 2 VW 2021-08-25 16:17:44 Anca Maurer MD FLEXIBLE NASOPHARYNGEAL 2021-08-22 15:38:27 Rebecca Brown MD LARYNGOSCOPY COVID-19 (SARS-COV-2) 2021-08-20 19:44:00 Alexandra Dawson MD And erson PCR-ASYMPTOMATIC MC POC GLUCOSE SCREEN 2021-07-12 23:42:00 Lacy Mancia MD on BASIC METABOLIC PANEL, 2021-07-12 21:09:00 Kwaku Yo MD CALCIUM TOTAL MAGNESIUM LEVEL 2021-07-12 21:09:00 Kwaku Yo MD Arthur rson PHOSPHORUS LEVEL 2021-07-12 21:09:00 Kwaku Yo MD And erson GLUCOSE LEVEL 2021-07-12 21:09:00 MD Chucky De Paz on Ino BLOOD UREA NITROGEN 2021-07-12 21:09:00 MD Yue De Paz Ino ELECTROLYTE PANEL 2021-07-12 21:09:00 MD Zandra Arthur rson Ino SERUM CREATININE 2021-07-12 21:09:00 MD Jorge De Paz .GLOMERULAR FILTRATION RATE 2021-07-12 21:09:00 MD Jose E Mart Ino CALCIUM LEVEL TOTAL 2021-07-12 21:09:00 MD Yue De Paz Ino POC GLUCOSE SCREEN 2021-07-12 19:45:00 Lacy Mancia MD Chucky on POC GLUCOSE SCREEN 2021-07-12 15:40:00 Lacy Mancia MD on COMPLETE BLOOD COUNT W/ 2021-07-12 07:56:00 Madelin Knight MD Maryse BASIC METABOLIC PANEL, 2021-07-12 07:56:00 Kwaku Yo MD CALCIUM TOTAL MAGNESIUM LEVEL 2021-07-12 07:56:00 Kwaku Yo MD Arthur rson PHOSPHORUS LEVEL 2021-07-12 07:56:00 Kwaku Yo MD And erson GLUCOSE LEVEL 2021-07-12 07:56:00 MD Chucky De Paz on Ino BLOOD UREA NITROGEN 2021-07-12 07:56:00 MD Yue De Paz ELECTROLYTE PANEL 2021-07-12 07:56:00 MD Zandra Arthur rson Ino SERUM CREATININE 2021-07-12 07:56:00 MD Jorge De Paz .GLOMERULAR FILTRATION RATE 2021-07-12 07:56:00 MD Jose E Mart CALCIUM LEVEL TOTAL 2021-07-12 07:56:00 MD Yue De Paz Results CBC 2021-07-12 07:56:00 Madelin Knight MD Maryse MANUAL DIFFERENTIAL 2021-07-12 07:56:00 Madelin Knight MD Arthur rson Maryse POC GLUCOSE SCREEN 2021-07-12 04:09:00 Lacy Mancia MD on POC GLUCOSE SCREEN 2021-07-12 02:52:00 Lacy Mancia MD on POC GLUCOSE SCREEN 2021-07-11 22:27:00 Lacy Mancia MD on ECHOCARDIOGRAM 2D COMPLETE 2021-07-11 22:16:42 [...] rson Ino SERUM CREATININE 2021-07-11 20:33:00 MD Zandra Jorge son Ino .GLOMERULAR FILTRATION RATE 2021-07-11 20:33:00 MD Jose E Mart Ino CALCIUM LEVEL TOTAL 2021-07-11 20:33:00 MD Yue De Paz POC GLUCOSE SCREEN 2021-07-11 18:33:00 Lacy Mancia MD on POC GLUCOSE SCREEN 2021-07-11 14:52:00 Lacy Mancia MD on BASIC METABOLIC PANEL, 2021-07-11 08:00:00 Kwaku Yo MD CALCIUM TOTAL MAGNESIUM LEVEL 2021-07-11 08:00:00 Kwaku Yo MD Arthur rson PHOSPHORUS LEVEL 2021-07-11 08:00:00 Kwaku Yo MD And erson GLUCOSE LEVEL 2021-07-11 08:00:00 MD Zandra Chucky on Ino BLOOD UREA NITROGEN 2021-07-11 08:00:00 MD Yue De Paz ELECTROLYTE PANEL 2021-07-11 08:00:00 MD Zandra Arthur rsdeya Ino SERUM CREATININE 2021-07-11 08:00:00 MD Jorge [...] GLUCOSE SCREEN 2021-07-11 03:45:00 MD Zandra And erson Ino POC GLUCOSE SCREEN 2021-07-11 01:36:00 MD Zandra And naz Mckinnon EKG, 12-LEAD (PORTABLE) 2021-07-11 00:00:00 Kwaku Yo MD POC GLUCOSE SCREEN 2021-07-10 22:26:00 MD Zandra And ersdeya Ino BASIC METABOLIC PANEL, 2021-07-10 21:02:00 Kwaku Yo MD CALCIUM TOTAL MAGNESIUM LEVEL 2021-07-10 21:02:00 Kwaku Yo MD Arthur rson PHOSPHORUS LEVEL 2021-07-10 21:02:00 Kwaku Yo MD And erson GLUCOSE LEVEL 2021-07-10 21:02:00 MD Chucky De Paz BLOOD UREA NITROGEN 2021-07-10 21:02:00 MD Yue De Paz ELECTROLYTE PANEL 2021-07-10 21:02:00 MD Zandra Arthurruben Mckinnon SERUM CREATININE 2021-07-10 21:02:00 MD Jorge De Paz .GLOMERULAR FILTRATION RATE 2021-07-10 21:02:00 MD Jose E Mart CALCIUM LEVEL TOTAL 2021-07-10 21:02:00 MD Yue De Paz POC GLUCOSE SCREEN 2021-07-10 17:40:00 MD Zandra And erson Ino COMPLETE BLOOD COUNT W/ 2021-07-10 12:09:00 [...] NITROGEN 2021-07-10 12:09:00 MD Yue De Paz ELECTROLYTE PANEL 2021-07-10 12:09:00 MD Zandra Arthur rsdeya Ino SERUM CREATININE 2021-07-10 12:09:00 MD Jorge De Paz .GLOMERULAR FILTRATION RATE 2021-07-10 12:09:00 MD Jose E Mart CALCIUM LEVEL TOTAL 2021-07-10 12:09:00 MD Yue De Paz Results CBC 2021-07-10 12:09:00 Madelin Knight MD Maryse MANUAL DIFFERENTIAL 2021-07-10 12:09:00 Madelin Knight MD Maryse POC GLUCOSE SCREEN 2021-07-10 05:11:00 MD Zandra And erson Ino BASIC METABOLIC PANEL, 2021-07-10 04:35:00 Kwaku Yo MD CALCIUM IONIZED MAGNESIUM LEVEL 2021-07-10 04:35:00 Kwaku Yo MD Arthur rson PHOSPHORUS LEVEL 2021-07-10 04:35:00 Kwaku Yo MD And erson TROPONIN T 2021-07-10 04:35:00 Kwaku Yo MD Arthur rson GLUCOSE LEVEL 2021-07-10 04:35:00 MD Zandra Chucky on Ino ELECTROLYTE PANEL 2021-07-10 04:35:00 MD Zandra Arthur rson Ino SERUM CREATININE 2021-07-10 04:35:00 MD Zandra Jorgedebbie Mckinnon .GLOMERULAR FILTRATION RATE 2021-07-10 04:35:00 MD Jose E Mart CALCIUM IONIZED, VENOUS 2021-07-10 04:35:00 Samantha De Paz BLOOD UREA NITROGEN 2021-07-10 04:35:00 MD Yue De Paz LOWER RESPIRATORY CULTURE W/ 2021-07-09 23:33:00 Kaushal Proctor MD GRAM STAIN POC GLUCOSE SCREEN 2021-07-09 22:30:00 MD Zandra And naz Ino VASCULAR ACCESS ULTRASOUND 2021-07-09 21:00:36 MD [...] ELECTROLYTE PANEL 2021-07-09 19:45:00 MD Zandra Arthur rsdeya Ino SERUM CREATININE 2021-07-09 19:45:00 MD Jorge De Paz .GLOMERULAR FILTRATION RATE 2021-07-09 19:45:00 MD Jose E Mart CALCIUM LEVEL TOTAL 2021-07-09 19:45:00 MD Yue De Paz Ino OSCILLATORY PEP 2021-07-09 19:21:45 MD Zandra Chucky on Ino POC GLUCOSE SCREEN 2021-07-09 18:42:00 MD Zandra And erson Ino POC GLUCOSE SCREEN 2021-07-09 14:56:00 MD Zandra And erson Ino TROPONIN T 2021-07-09 12:28:00 Kaushal Proctor MD Andadele patel BASIC METABOLIC PANEL, 2021-07-09 12:28:00 Madelin Knight MD nderson CALCIUM TOTAL Maryse COMPLETE BLOOD COUNT W/ 2021-07-09 12:28:00 Madelin Knight MD DIFFERENTIAL Maryse MAGNESIUM LEVEL 2021-07-09 12:28:00 Madelin Knight MD PHOSPHORUS LEVEL 2021-07-09 12:28:00 Madelin Knight MD Andadele patel Maryse GLUCOSE LEVEL 2021-07-09 12:28:00 Madelin Knight MD BLOOD UREA NITROGEN 2021-07-09 12:28:00 Madelin Knight MD Arthur rsdeya Serra ELECTROLYTE PANEL 2021-07-09 12:28:00 Madelin Knight MD on Maryse SERUM CREATININE 2021-07-09 12:28:00 Madelin Knight MD Andadele Serra .GLOMERULAR FILTRATION RATE 2021-07-09 12:28:00 Madelin Knight MD CALCIUM LEVEL TOTAL 2021-07-09 12:28:00 Madelin Knight MD Arthur rson Maryse Results CBC 2021-07-09 12:28:00 Madelin Knight MD MANUAL DIFFERENTIAL 2021-07-09 12:28:00 Madelin Knight MD rsdeya Maryse POC GLUCOSE SCREEN 2021-07-09 04:08:00 Madelin Knight MD POC GLUCOSE SCREEN 2021-07-08 23:49:00 Madelin Knight MD STREPTOCOCCUS PNEUMONIAE 2021-07-08 23:17:00 Kaushal Proctor URINE ANTIGEN LEGIONELLA URINE ANTIGEN 2021-07-08 23:17:00 Kaushal Proctor LEGIONELLA URINE ANTIGEN PATH 2021-07-08 23:17:00 Arianna Knight sa, MD REVIEW Maryse STREPTOCOCCAL URINE ANTIGEN 2021-07-08 23:17:00 Madelin Knight MD PATH REVIEW Maryse GENERAL LABORATORY ADD ON 2021-07-08 21:35:00 Josette Vasquez MD TEST MRSA SCREENING CULTURE 2021-07-08 21:23:[address] CHEST PULMONARY EMBOLISM W 2021-07-08 19:38:55 Donny Rain MD CONTRAST XR ABDOMEN AP 2021-07-08 19:31:37 Josette Vasquez MD POC CHEM 8 2021-07-08 18:14:00 ChristinaJosette funes MD POC CRITICAL 2021-07-08 18:14:00 Josette Vasquez MD COMPLETE BLOOD COUNT W/ 2021-07-08 18:13:00 Olegario Rain MD DIFFERENTIAL COMPREHENSIVE METABOLIC PANEL 2021-07-08 18:13:00 Donny Rain MD MAGNESIUM LEVEL 2021-07-08 18:13:00 Olegario Rain MD Arthur rson PHOSPHORUS LEVEL 2021-07-08 18:13:00 Olegario Rain MD And erson PROTHROMBIN TIME 2021-07-08 18:13:00 Olegario Rain MD And erson APTT 2021-07-08 18:13:00 Olegario Rain MD Arthur rson D DIMER 2021-07-08 18:13:00 Olegario Rain MD Arthur rson CARDIAC PANEL 2021-07-08 18:13:00 Olegario Rain MD Arthur rson Results CBC 2021-07-08 18:13:00 Olegario Rain MD Arthur rson MANUAL DIFFERENTIAL 2021-07-08 18:13:00 Olegario Rain MD GLUCOSE LEVEL 2021-07-08 18:13:00 Koffi, Olegario Gamez MD Arthur rson BLOOD UREA NITROGEN 2021-07-08 18:13:00 Olegario Rain MD ELECTROLYTE PANEL 2021-07-08 18:13:00 Koffi, Olegario hallson SERUM CREATININE 2021-07-08 18:13:00 Koffi, Olegario Gamez MD And erson .GLOMERULAR FILTRATION RATE 2021-07-08 18:13:00 Koffi, Jhonny Dorantes CALCIUM LEVEL TOTAL 2021-07-08 18:13:00 Olegario Rain MD ALBUMIN LEVEL 2021-07-08 18:13:00 Koffi, Olegario Gamez MD Arthur rson ALKALINE PHOSPHATASE 2021-07-08 18:13:00 Olegario Rain MD ALANINE AMINOTRANSFERASE 2021-07-08 18:13:00 Olegario Rain MD ASPARTATE AMINOTRANSFERASE 2021-07-08 18:13:00 Olegario Rain MD TOTAL PROTEIN 2021-07-08 18:13:00 Koffi, Olegario Gamez MD Arthur rson FRACTIONATED BILIRUBIN 2021-07-08 18:13:00 Olegario Rain MD PROCALCITONIN 2021-07-08 18:13:00 Olegario Rain MD Arthur rson XR CHEST 1 VW 2021-07-08 17:38:45 Olegario Rain MD Arthur rson COVID-19 (SARS-COV-2) 2021-07-08 17:23:00 Olegario Rain ASYMPTOMATIC-LT CT HEAD WO CONTRAST 2021-07-08 17:05:55 Olegario Rain MD POC GLUCOSE SCREEN 2021-07-08 16:47:00 Josette Vasquezers on EKG, 12-LEAD (PORTABLE) 2021-07-08 00:00:00 Olegario Rain MD COMPREHENSIVE METABOLIC PANEL 2021-07-04 17:10:00 Yumi Lorenz MD COMPLETE BLOOD COUNT W/ 2021-07-04 17:10:00 Yumi Lorenz MDrson DIFFERENTIAL MAGNESIUM LEVEL 2021-07-04 17:10:00 Yumi Lorenz MD PHOSPHORUS LEVEL 2021-07-04 17:10:00 Yumi Lorenz MD GLUCOSE LEVEL 2021-07-04 17:10:00 Yumi Lorenz MD BLOOD UREA NITROGEN 2021-07-04 17:10:00 Yumi Lorenz MD Jorge gregor ELECTROLYTE PANEL 2021-07-04 17:10:00 Yumi Lorenz MD SERUM CREATININE 2021-07-04 17:10:00 Yumi Lorenz MD .GLOMERULAR FILTRATION RATE 2021-07-04 17:10:00 Yumi Lorenz MD CALCIUM LEVEL TOTAL 2021-07-04 17:10:00 Yumi Lorenz MD Jorgedebbie bundy ALBUMIN LEVEL 2021-07-04 17:10:00 Yumi Lorenz MD ALKALINE PHOSPHATASE 2021-07-04 17:10:00 Yumi Lorenz MD rsdeya ALANINE AMINOTRANSFERASE 2021-07-04 17:10:00 Yumi Lorenz MD ASPARTATE AMINOTRANSFERASE 2021-07-04 17:10:00 Yumi Lorenz TOTAL PROTEIN 2021-07-04 17:10:00 Yumi Lorenz MD FRACTIONATED BILIRUBIN 2021-07-04 17:10:00 Yumi Lorenz MD derson Results CBC 2021-07-04 17:10:00 Yumi Lorenz MD MANUAL DIFFERENTIAL 2021-07-04 17:10:00 Yumi Lorenz MD COMPREHENSIVE METABOLIC PANEL 2021-06-27 14:00:00 Yumi Lorenz MD COMPLETE BLOOD COUNT W/ 2021-06-27 14:00:00 Yumi Lorenz MD DIFFERENTIAL MAGNESIUM LEVEL 2021-06-27 14:00:00 Yumi Lorenz MD PHOSPHORUS LEVEL 2021-06-27 14:00:00 Yumi Lorenz MD GLUCOSE LEVEL 2021-06-27 14:00:00 Yumi Lorenz MD BLOOD UREA NITROGEN 2021-06-27 14:00:00 Yumi Lorenz MD ELECTROLYTE PANEL 2021-06-27 14:00:00 Yumi Lorenz MD n SERUM CREATININE 2021-06-27 14:00:00 Yumi Lorenz MD .GLOMERULAR FILTRATION RATE 2021-06-27 14:00:00 Yumi Lorenz MD CALCIUM LEVEL TOTAL 2021-06-27 14:00:00 Yumi Lorenz MD Jorge bundy ALBUMIN LEVEL 2021-06-27 14:00:00 Yumi Lorenz MD ALKALINE PHOSPHATASE 2021-06-27 14:00:00 Yumi Lorenze rsdeya ALANINE AMINOTRANSFERASE 2021-06-27 14:00:00 Yumi Lorenz MD ASPARTATE AMINOTRANSFERASE 2021-06-27 14:00:00 Yumi Lorenz TOTAL PROTEIN 2021-06-27 14:00:00 Yumi Lorenz MD FRACTIONATED BILIRUBIN 2021-06-27 14:00:00 Yumi Lorenz MDson Results CBC 2021-06-27 14:00:00 Yumi Lorenz MD MANUAL DIFFERENTIAL 2021-06-27 14:00:00 Yumi Lorenz MD Jorgedebbie bundy TROPONIN T 2021-06-22 21:45:00 Nichole Beltrán MD COVID-19 (SARS-COV-2) 2021-06-22 17:54:00 Susan Ugalde MD ASYMPTOMATIC-LT COMPLETE BLOOD COUNT W/ 2021-06-22 17:54:00 Susan Ugalde MD DIFFERENTIAL COMPREHENSIVE METABOLIC PANEL 2021-06-22 17:54:00 Susan Ugalde MD MAGNESIUM LEVEL 2021-06-22 17:54:00 Susan Ugalde MD PHOSPHORUS LEVEL 2021-06-22 17:54:00 Susan Ugalde MD nderson NT PRO BNP 2021-06-22 17:54:00 Susan Ugalde MD CREATINE KINASE 2021-06-22 17:54:00 Susan Ugalde MDson CKMB 2021-06-22 17:54:00 Susan Ugalde MDson Results CBC 2021-06-22 17:54:00 Susan Ugalde MDson MANUAL DIFFERENTIAL 2021-06-22 17:54:00 Susan Ugalde GLUCOSE LEVEL 2021-06-22 17:54:00 Suasn Ugalde MD BLOOD UREA NITROGEN 2021-06-22 17:54:00 Susan Ugalde ELECTROLYTE PANEL 2021-06-22 17:54:00 Susan Ugalde MD SERUM CREATININE 2021-06-22 17:54:00 Susan Ugalde MD .GLOMERULAR FILTRATION RATE 2021-06-22 17:54:00 Samantha Ugalde [...] BLOOD COUNT W/ 2021-06-20 14:07:00 Yumi Lorenz MD DIFFERENTIAL MAGNESIUM LEVEL 2021-06-20 14:07:00 Yumi Lorenz MD PHOSPHORUS LEVEL 2021-06-20 14:07:00 Yumi Lorenz MD GLUCOSE LEVEL 2021-06-20 14:07:00 Yumi Lorenz MD BLOOD UREA NITROGEN 2021-06-20 14:07:00 Yumi Lorenz MD son ELECTROLYTE PANEL 2021-06-20 14:07:00 Yumi Lorenz MD n SERUM CREATININE 2021-06-20 14:07:00 Yumi Lorenz MD .GLOMERULAR FILTRATION RATE 2021-06-20 14:07:00 Yumi Lorenz MD CALCIUM LEVEL TOTAL 2021-06-20 14:07:00 Yumi Lorenz MD Jorge gregor ALBUMIN LEVEL 2021-06-20 14:07:00 Yumi Lorenz MD ALKALINE PHOSPHATASE 2021-06-20 14:07:00 Yumi Lorenz MD Arthur rson ALANINE AMINOTRANSFERASE 2021-06-20 14:07:00 Yumi Lorenz MD ASPARTATE AMINOTRANSFERASE 2021-06-20 14:07:00 Yumi Lorenz TOTAL PROTEIN 2021-06-20 14:07:00 Ymui Lorenz MD FRACTIONATED BILIRUBIN 2021-06-20 14:07:00 Yumi Lorenz MD derson Results CBC 2021-06-20 14:07:00 Yumi Lorenz MD MANUAL DIFFERENTIAL 2021-06-20 14:07:00 Yumi Lorenz MD COMPREHENSIVE METABOLIC PANEL 2021-06-13 13:00:00 Yumi Lorenz MD COMPLETE BLOOD COUNT W/ 2021-06-13 13:00:00 Yumi Lorenz MD nderson DIFFERENTIAL MAGNESIUM LEVEL 2021-06-13 13:00:00 Yumi Lorenz MD PHOSPHORUS LEVEL 2021-06-13 13:00:00 Yumi Lorenz MD GLUCOSE LEVEL 2021-06-13 13:00:00 Yumi Lorenz MD BLOOD UREA NITROGEN 2021-06-13 13:00:00 Yumi Lorenz MD ELECTROLYTE PANEL 2021-06-13 13:00:00 Yumi Lorenz MD SERUM CREATININE 2021-06-13 13:00:00 Yumi Lorenz MD .GLOMERULAR FILTRATION RATE 2021-06-13 13:00:00 Yumi Lorenz MD CALCIUM LEVEL TOTAL 2021-06-13 13:00:00 Yumi Lorenz MD Jorgedebbie bundy ALBUMIN LEVEL 2021-06-13 13:00:00 Yumi Lorenz MD ALKALINE PHOSPHATASE 2021-06-13 13:00:00 Yumi Lorenz MD rson ALANINE AMINOTRANSFERASE 2021-06-13 13:00:00 Yumi Lorenz MD ASPARTATE AMINOTRANSFERASE 2021-06-13 13:00:00 Yumi Lorenz TOTAL PROTEIN 2021-06-13 13:00:00 Yumi Lorenz MD FRACTIONATED BILIRUBIN 2021-06-13 13:00:00 Yumi Lorenz MDson Results CBC 2021-06-13 13:00:00 Yumi Lorenz MD MANUAL DIFFERENTIAL 2021-06-13 13:00:00 Yumi Lorenz MD Jorgedebbie bundy COMPREHENSIVE METABOLIC PANEL 2021-06-06 12:58:00 Yumi Lorenz MD COMPLETE BLOOD COUNT W/ 2021-06-06 12:58:00 Yumi Lorenz MDrson DIFFERENTIAL MAGNESIUM LEVEL 2021-06-06 12:58:00 Yumi Lorenz MD PHOSPHORUS LEVEL 2021-06-06 12:58:00 Yumi Lorenz MD GLUCOSE LEVEL 2021-06-06 12:58:00 Yumi Lorenz MD BLOOD UREA NITROGEN 2021-06-06 12:58:00 Yumi Lorenz MD ELECTROLYTE PANEL 2021-06-06 12:58:00 Yumi Lorenz MD amanda SERUM CREATININE 2021-06-06 12:58:00 Yumi Lorenz MD .GLOMERULAR FILTRATION RATE 2021-06-06 12:58:00 Yumi Lorenz MD CALCIUM LEVEL TOTAL 2021-06-06 12:58:00 Yumi Lorenz MD ALBUMIN LEVEL 2021-06-06 12:58:00 Yumi Loernz MD ALKALINE PHOSPHATASE 2021-06-06 12:58:00 Yumi Lorenz MD ALANINE AMINOTRANSFERASE 2021-06-06 12:58:00 Yumi Lorenz MD ASPARTATE AMINOTRANSFERASE 2021-06-06 12:58:00 Yumi Lorenz TOTAL PROTEIN 2021-06-06 12:58:00 Yumi Lorenz MD FRACTIONATED BILIRUBIN 2021-06-06 12:58:00 Yumi Lorenz MDson Results CBC 2021-06-06 12:58:00 Yumi Lorenz MD MANUAL DIFFERENTIAL 2021-06-06 12:58:00 Yumi Lorenz MD COMPREHENSIVE METABOLIC PANEL 2021-05-30 14:28:00 Yumi Lorenz MD COMPLETE BLOOD COUNT W/ 2021-05-30 14:28:00 Yumi Lornez MDrson DIFFERENTIAL MAGNESIUM LEVEL 2021-05-30 14:28:00 Yumi Lorenz MD PHOSPHORUS LEVEL 2021-05-30 14:28:00 Yumi Lorenz MD GLUCOSE LEVEL 2021-05-30 14:28:00 Yumi Lorenz MD BLOOD UREA NITROGEN 2021-05-30 14:28:00 Yumi Lorenz MD Jorge bundy ELECTROLYTE PANEL 2021-05-30 14:28:00 Yumi Lorenz MD Andreginaldo amanda SERUM CREATININE 2021-05-30 14:28:00 Yumi Lorenz MD .GLOMERULAR FILTRATION RATE 2021-05-30 14:28:00 Yumi Lorenz MD CALCIUM LEVEL TOTAL 2021-05-30 14:28:00 Yumi Lorenz MD Jorgedebbie bundy ALBUMIN LEVEL 2021-05-30 14:28:00 Yumi Lorenz MD ALKALINE PHOSPHATASE 2021-05-30 14:28:00 Yumi Lorenz MD ALANINE AMINOTRANSFERASE 2021-05-30 14:28:00 Yumi Lorenz MD ASPARTATE AMINOTRANSFERASE 2021-05-30 14:28:00 Yumi Lorenz TOTAL PROTEIN 2021-05-30 14:28:00 Yumi Lorenz MD FRACTIONATED BILIRUBIN 2021-05-30 14:28:00 Yumi Lorenz MD derson Results CBC 2021-05-30 14:28:00 Yumi Lorenz MD MANUAL DIFFERENTIAL 2021-05-30 14:28:00 Yumi Lorenz MD Jorge gregor COMPREHENSIVE METABOLIC PANEL 2021-05-23 14:42:00 Yumi Lorenz MD COMPLETE BLOOD COUNT W/ 2021-05-23 14:42:00 Yumi Lorenz MD ndersdeya DIFFERENTIAL MAGNESIUM LEVEL 2021-05-23 14:42:00 Yumi Lorenz MD PHOSPHORUS LEVEL 2021-05-23 14:42:00 Yumi Lorenz MD GLUCOSE LEVEL 2021-05-23 14:42:00 Yumi Lorenz MD BLOOD UREA NITROGEN 2021-05-23 14:42:00 Yumi Lorenz MD Jorgedebbie bundy ELECTROLYTE PANEL 2021-05-23 14:42:00 Yumi Lorenz MD SERUM CREATININE 2021-05-23 14:42:00 Yumi Lorenz MD .GLOMERULAR FILTRATION RATE 2021-05-23 14:42:00 Yumi Lorenz MD CALCIUM LEVEL TOTAL 2021-05-23 14:42:00 Yumi Lorenz MD Jorge bundy ALBUMIN LEVEL 2021-05-23 14:42:00 Yumi Lorenz MD ALKALINE PHOSPHATASE 2021-05-23 14:42:00 Yumi Lorenz MD ALANINE AMINOTRANSFERASE 2021-05-23 14:42:00 Yumi Lorenz MD ASPARTATE AMINOTRANSFERASE 2021-05-23 14:42:00 Yumi Lorenz TOTAL PROTEIN 2021-05-23 14:42:00 Yumi Lorenz MD FRACTIONATED BILIRUBIN 2021-05-23 14:42:00 Yumi Lroenz MD Results CBC 2021-05-23 14:42:00 Yumi Lorenz MD MANUAL DIFFERENTIAL 2021-05-23 14:42:00 Yumi Lorenz MD [place] MODIFIED BARIUM SWALLOW W 2021-05-18 15:57:01 Alexandra Dawson MD SPEECH CT HEAD/NECK SIMULATION WO 2021-05-11 16:46:32 Alexandra Dawson CONTRAST (RO) COVID-19 (SARS-COV-2) PCR 2021-05-11 15:05:00 Alexandra Dawson MD ASYMPTOMATIC ORTHOPANTOGRAM 2021-05-06 16:53:13 Dixie Loaiza MD [facility] TABLEMAN 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 2021-05-06 15:58:10 Alexandra Dawson MD ELECTROLYTE PANEL 2021-05-04 17:10:00 Yumi Lorenz MD BLOOD UREA NITROGEN 2021-05-04 17:10:00 Yumi Lorenz MD SERUM CREATININE 2021-05-04 17:10:00 Yumi Lorenz MD GLUCOSE, RANDOM 2021-05-04 17:10:00 Yumi Lorenz MD MAGNESIUM LEVEL 2021-05-04 17:10:00 Yumi Lorenz MD PHOSPHORUS LEVEL 2021-05-04 17:10:00 Yumi Lorenz MD CALCIUM LEVEL TOTAL 2021-05-04 17:10:00 Yumi Lorenz MD Jorgedebbie bundy HEPATIC FUNCTION PANEL 2021-05-04 17:10:00 Ymui Lorenz MD VITAMIN D 25 HYDROXY LEVEL 2021-05-04 17:10:00 Yumi Lorenz SERUM CREATININE 2021-05-04 17:10:00 Yumi Lorenz MD .GLOMERULAR FILTRATION RATE 2021-05-04 17:10:00 Yumi Lorenz MD ALBUMIN LEVEL 2021-05-04 17:10:00 Yumi Lorenz MD ALKALINE PHOSPHATASE 2021-05-04 17:10:00 Yumi Lorenz MD rson ALANINE AMINOTRANSFERASE 2021-05-04 17:10:00 Yumi Lorenz MD ASPARTATE AMINOTRANSFERASE 2021-05-04 17:10:00 Yumi Lorenz TOTAL PROTEIN 2021-05-04 17:10:00 Yumi Lorenz MD FRACTIONATED BILIRUBIN 2021-05-04 17:10:00 Yumi Lorenz MD, MD COVID-19 (SARS-COV-2) PCR 2021-05-04 16:23:00 Ene Polk MD ASYMPTOMATIC COMPLETE BLOOD COUNT W/ 2021-05-03 14:26:00 Alexandra Dawson MDrson DIFFERENTIAL COMPREHENSIVE METABOLIC PANEL 2021-05-03 14:26:00 Alexandra [...] MD ELECTROLYTE PANEL 2021-05-03 14:26:00 Alexandra Dawson MDo amanda SERUM CREATININE 2021-05-03 14:26:00 Alexandra Dawson MD .GLOMERULAR FILTRATION RATE 2021-05-03 14:26:00 Alexandra Dawson MD CALCIUM LEVEL TOTAL 2021-05-03 14:26:00 Alexandra Dawson MD ALBUMIN LEVEL 2021-05-03 14:26:00 Alexandra Dawson MD ALKALINE PHOSPHATASE 2021-05-03 14:26:00 Alexandra Dawson MD rsdeya ALANINE AMINOTRANSFERASE 2021-05-03 14:26:00 Alexandra Dawson MD ASPARTATE AMINOTRANSFERASE 2021-05-03 14:26:00 Alexandra Dawson TOTAL PROTEIN 2021-05-03 14:26:00 Alexandra Dawson MD FRACTIONATED BILIRUBIN 2021-05-03 14:26:00 Alexandra Dawson MD An derson TMP HCVAB INTERP 2021-05-03 14:26:[address] SOFT TISSUE NECK W 2021-05-03 13:27:54 Alexandra Dawson MD And erson CONTRAST CT CHEST W CONTRAST 2021-05-03 13:27:54 Alexandra Dawson MD Jorge son POC CREATININE 2021-05-03 12:56:00 Alexandra Dawson MD OSI PET CT SKULL TO MID THIGH 2021-04-07 18:24:00 Olivia Coleman MD PATHOLOGY OUTSIDE 2021-03-28 00:00:00 Korina Pastor MD INTERPRETATION OSI CHEST 2021-03-24 18:24:00 Olivia Coleman MD Plan of Care Planned Activity Planned Date Details Comments Source Future Scheduled Test 2021-05-14 00:00:00 COVID-19 Vaccination (Tania Dorantes - Modernnirmla risk 4-dose series) [code = COVID-19 Vaccination (3 - Moderna risk 4-dose series)] Encounters Start End Encounter Admission Attending Care Care Encounter Source Date/Time Date/Time Type Type Clinicians Facility Department ID 2021-07-09 Inpatient FABY- [facility] [id number] 15:00:36 Jeanmarie ASKEW 2021-06-29 Outpatient Bullard, Na [facility]LMLC [facility] [id number] [facility] 11:54:04 [id number] 2021-06-29 Outpatient Bullard, Na [facility]LMLC ST[facility]C [id number] [facility] [address] 11:30:38 [id number] [facility] 2021-06-29 Outpatient Bullard, Na STLMLC STLMLC [id number] [facility] 11:28:27 [id number] [facility] 2021-06-29 Outpatient Bullard, Na STLMLC STL[facility]C [id number] [facility] [address] 11:24:06 [id number] [facility] 2021-04-[address] [facility], MDA MDA [id number] 19:44:15 PROVIDER Chucky patel 2021-08-25 2021-08-31 Inpatient SIENNA, [facility] [id number] 17:50:00 16:18:00 DAVIS patel 2021-08-31 2021-08-31 Inpatient DARYL LAU MDA MDA [id number] 14:19:25 14:19:27 Chucky o amanda 2021-08-29 2021-08-29 Inpatient DARYL LAU MDA MDA [id number] 10:07:53 10:07:55 Chucky o amanda 2021-08-26 2021-08-26 Outpatient DOROTHY TORO, MDA MDA [id number] 00:20:55 00:34:46 SUSAN Locke o amanda 2021-08-25 2021-08-25 Outpatient ALICIA, MDA MDA [id number] 12:28:34 12:35:55 DAVINA Patel so amanda 2021-08-25 2021-08-25 Outpatient DARYL LAU MDA MDA [id number] 10:54:44 10:54:44 Chucky o amanda 2021-08-22 2021-08-22 Outpatient DOROTHY DAWSON, MDA MDA [id number] 09:00:00 23:59:00 ALEXANDRA patel 2021-08-20 2021-08-20 Outpatient DOROTHY DAWSON, MDA MDA [id number] 14:40:16 14:50:18 ALEXANDRA patel 2021-08-17 2021-08-17 Outpatient DARYL LAU MDA MDA [id number] 13:23:18 13:23:18 Chucky o amanda 2021-08-02 2021-08-02 Outpatient DARYL LAU MDA MDA [id number] 09:02:07 09:02:07 Chucky o amanda 2021-07-19 2021-07-19 Outpatient DARYL LAU MDA MDA [id number] 15:33:56 15:33:56 Chucky o amanda 2021-07-19 2021-07-19 ambulatory [facility]MLC [facility] [id number] [facility] 00[facility]00 [facility] 2021-07-18 2021-07-18 Outpatient DARYL LAU MDA MDA [id number] 15:31:07 15:31:07 Chucky o n 2021-07-13 2021-07-13 Outpatient DOROTHY LORENZ MDA MDA [id number] 13:44:18 13:44:18 YUMI Chucky o n 2021-07-08 2021-07-12 Inpatient UR WENDI, MDA Hosp [facility] [id number] MD 10:33:00 21:00:00 LACY Locke o amanda 2021-07-09 2021-07-09 Inpatient DOROTHY HOBBS- MDA MDA [id number] 14:37:39 15:13:17 Chucky ASKEW 2021-07-08 2021-07-08 Outpatient DARYL LAU MDA MDA [id number] 09:19:33 10:32:00 Chucky o amanda 2021-07-08 2021-07-08 Outpatient DARYL LAU MDA MDA [id number] 08:15:00 09:18:00 Chucky o n 2021-07-07 2021-07-07 Outpatient DARYL LAU MDA MDA [id number] 20:19:41 23:59:00 Chucky o amanda 2021-07-07 2021-07-07 Outpatient DARYL LAU MDA MDA [id number] 10:00:00 20:18:00 Chucky o amanda 2021-07-07 2021-07-07 Outpatient DARYL LAU MDA MDA [id number] 09:45:00 09:59:00 Chucky o amanda 2021-07-06 2021-07-06 Outpatient DARYL LAU MDA MDA [id number] 11:21:54 23:59:00 Chucky o amanda 2021-07-06 2021-07-06 Outpatient DARYL LAU MDA MDA [id number] 13:41:27 22:23:25 Chucky o amanda 2021-07-06 2021-07-06 Outpatient DOROTHY DAWSON MDA MDA [id number] MD 15:25:17 15:25:17 ALEXANDRA patel 2021-07-06 2021-07-06 Outpatient DARYL LAU MDA MDA [id number] 13:22:42 14:24:35 Chucky patel 2021-07-06 2021-07-06 Outpatient DARYL LAU MDA MDA [id number] 09:27:40 11:20:00 Chucky o amanda 2021-07-06 2021-07-06 Outpatient DARYL LAU MDA MDA [id number] 08:45:00 09:26:00 Chucky o amanda 2021-07-05 2021-07-05 Outpatient DARYL LAU MDA MDA [id number] 09:07:24 23:59:00 Chucky patel 2021-07-04 2021-07-04 Outpatient DOROTHY LORENZ MDA MDA [id number] 12:15:00 23:59:00 YUMI patel 2021-07-04 2021-07-04 Outpatient DARYL LAU MDA MDA 1086 [id number] 09:23:55 12:14:00 Chucky o amanda 2021-07-04 2021-07-04 Outpatient DOROTHY LORENZ MDA MDA [id number] MD 09:15:00 09:22:00 YUMI patel 2021-07-01 2021-07-01 Outpatient DARYL LAU MDA MDA 1086 [id number] 09:26:55 23:59:00 Chucky o amanda 2021-07-01 2021-07-01 Outpatient DOROTHY DAWSON MDA MDA [id number] MD 09:26:30 23:59:00 ALEXANDRA patel 2021-06-30 2021-06-30 Outpatient DARYL LAU MDA MDA [id number] 10:12:14 23:59:00 Chucky o amanda 2021-06-29 2021-06-29 Outpatient DARYL LAU MDA MDA 1086 [id number] 09:21:07 23:59:00 Chucky o amanda 2021-06-29 2021-06-29 Outpatient DARYL LAU MDA MDA [id number] 16:04:56 16:04:56 Chucky o amanda 2021-06-29 2021-06-29 Outpatient DOROTHY LORENZ MDA MDA [id number] MD 12:39:09 12:39:09 YUMI patel 2021-06-29 2021-06-29 Outpatient DARYL LAU MDA MDA 1086 [id number] 09:20:50 09:20:50 Chucky o amanda 2021-06-28 2021-06-28 Outpatient DARYL LAU MDA MDA 1086 [id number] 13:24:55 23:59:00 Chucky o amanda 2021-06-27 2021-06-27 Outpatient DARYL LAU MDA MDA 1086 [id number] 08:51:26 23:59:00 Chucky o amanda 2021-06-27 2021-06-27 Outpatient DOROTHY LORENZ MDA MDA [id number] 10:10:27 10:10:27 YUMI patel 2021-06-27 2021-06-27 Outpatient DOROTHY LORENZ MDA MDA [id number] 07:30:00 08:50:00 YUMI Locke o amanda 2021-06-24 2021-06-24 Outpatient DARYL LAU MDA MDA [id number] 12:42:26 23:59:00 Chucky o amanda 2021-06-24 2021-06-24 Outpatient DARYL LAU MDA MDA 1086 [id number] 10:45:00 12:41:00 Chucky o amanda 2021-06-24 2021-06-24 Outpatient [facility] [id number] [address] [place] [address] 00:00:00 00:00:00 PAT [address] 2021-06-23 2021-06-23 Outpatient DARYL LAU MDA MDA [id number] 10:41:38 23:59:00 Chucky o amanda 2021-06-23 2021-06-23 Outpatient DARYL LAU MDA MDA [id number] [id number] 10:30:12 10:40:00 Chucky o amanda 2021-06-22 2021-06-22 Emergency ER JEREL, MDA Emergency 1088 [id number] MD 11:11:00 20:15:00 NICHOLE patel 2021-06-22 2021-06-22 Outpatient DARYL LAU MDA MDA 1086 [id number] MD 09:50:00 11:10:00 Chucky o amanda 2021-06-21 2021-06-21 Outpatient DARYL LAU MDA MDA [id number] MD 08:00:52 23:59:00 Chucky o amanda 2021-06-21 2021-06-21 Outpatient DOROTHY DAWSON, MDA MDA [id number] MD 07:58:46 07:59:00 ALEXANDRA patel 2021-06-20 2021-06-20 Outpatient DOROTHY LORENZ, MDA MDA [id number] MD 08:14:09 23:59:00 YUMI patel 2021-06-20 2021-06-20 Outpatient DOROTHY LORENZ, MDA MDA [id number] MD 07:58:43 08:13:00 YUMI Locke o amanda 2021-06-17 2021-06-17 Outpatient DARYL LAU MDA MDA [id number] [id number] MD 11:45:00 23:59:00 Chucky o amanda 2021-06-16 2021-06-16 Outpatient DARYL LAU MDA MDA [id number] [id number] MD 11:42:10 23:59:00 Chucky o amanda 2021-06-16 2021-06-16 Outpatient DARYL LAU MDA MDA [id number] MD 16:11:01 16:11:01 Chucky o amanda 2021-06-15 2021-06-15 Outpatient DOROTHY POLK, MDA MDA [id number] MD 10:37:55 23:59:00 ENE Locke o amanda 2021-06-15 2021-06-15 Outpatient DARYL LAU MDA MDA [id number] MD 11:27:15 14:11:36 Chucky o amanda 2021-06-15 2021-06-15 Outpatient DARYL LAU MDA MDA 1086 [id number] MD 08:16:55 10:36:00 Chucky o amanda 2021-06-15 2021-06-15 Outpatient DARYL LAU MDA MDA 1086 [id number] MD 07:19:30 08:15:00 Chucky o amanda 2021-06-14 2021-06-14 Outpatient DARYL LAU MDA MDA [id number] 20:31:13 23:59:00 Chuckyreginald patel 2021-06-14 2021-06-14 Outpatient DARYL LAU MDA MDA 1086 [id number] 08:01:28 20:30:00 Chuckyreginald patel 2021-06-13 2021-06-13 Outpatient DOROTHY LORENZ MDA MDA [id number] 09:15:00 23:59:00 YUMI patel 2021-06-13 2021-06-13 Outpatient DARYL LAU MDA MDA [id number] 08:20:58 09:14:00 Chucky o amanda 2021-06-13 2021-06-13 Outpatient DARYL LAU MDA MDA [id number] [id number] 08:08:42 08:19:00 Chucky patel 2021-06-13 2021-06-13 Outpatient DOROTHY LORENZ MDA MDA [id number] 06:30:00 08:07:00 YUMI patel 2021-06-10 2021-06-10 Outpatient DARYL LAU MDA MDA 1086 [id number] 09:48:20 23:59:00 Chucky o amanda 2021-06-09 2021-06-09 Outpatient DARYL LAU MDA MDA 1086 [id number] 08:15:00 23:59:00 Chucky o amanda 2021-06-08 2021-06-08 Outpatient DARYL LAU MDA MDA 1086 [id number] 20:55:35 23:59:00 Chucky o amanda 2021-06-08 2021-06-08 Outpatient DARYL LAU MDA MDA 1086 [id number] MD 13:28:31 20:54:00 Chucky o amanda 2021-06-08 2021-06-08 Outpatient DARYL LAU MDA MDA [id number] MD 16:41:38 16:41:38 Chucky o amanda 2021-06-08 2021-06-08 Outpatient DOROTHY DAWSON MDA MDA [id number] MD 10:37:41 13:27:00 ALEXANDRA patel 2021-06-08 2021-06-08 Outpatient DOROTHY LORENZ, MDA MDA [id number] 09:30:54 09:30:54 YUMI patel 2021-06-07 2021-06-07 Outpatient DARLY LAU MDA MDA 1086 [id number] 11:48:52 23:59:00 Chucky nic patel 2021-06-06 2021-06-06 Outpatient DARYL LAU MDA MDA [id number] [id number] 13:38:56 23:59:00 Chucky o amanda 2021-06-06 2021-06-06 Outpatient DOROTHY LORENZ, MDA MDA [id number] 07:00:00 13:37:00 YUMI Locke o amanda 2021-06-06 2021-06-06 Outpatient DOROTHY LORENZ, MDA MDA [id number] 06:30:00 06:59:00 YUMI patel 2021-06-02 2021-06-02 Outpatient DARYL LAU MDA MDA [id number] 06:16:14 23:59:00 Chucky o amanda 2021-06-01 2021-06-01 Outpatient MARIA DEL ROSARIO RIVAS MDA MDA [id number] 10:37:44 23:59:00 Chucky o amanda 2021-06-01 2021-06-01 Outpatient DOROTHY RESTREPO, MDA MDA [id number] 13:15:31 14:00:28 CLINT patel 2021-06-01 2021-06-01 Outpatient DARYL LAU MDA MDA [id number] 06:18:07 10:36:00 Chucky o amanda 2021-05-31 2021-05-31 Outpatient DARYL LAU MDA MDA 1086 [id number] 14:02:11 23:59:00 Chucky o amanda 2021-05-31 2021-05-31 Outpatient DARYL LAU MDA MDA [id number] 09:00:07 20:53:44 Chucky o amanda 2021-05-31 2021-05-31 Outpatient DOROTHY CARDOSO, MDA MDA [id number] 15:31:35 15:31:35 ANNA Locke o amanda 2021-05-31 2021-05-31 Outpatient DARYL LAU MDA MDA 1086 [id number] 05:46:59 14:01:00 Chucky nic patel 2021-05-30 2021-05-30 Outpatient DARYL LAU MDA MDA 1086 [id number] 06:55:13 23:59:00 Chucky nic patel 2021-05-30 2021-05-30 Outpatient DOROTHY LORENZ MDA MDA [id number] 11:10:48 11:10:48 YUMI patel 2021-05-30 2021-05-30 Outpatient DOROTHY LORENZ, MDA MDA [id number] 06:15:00 06:54:00 YUMI patel 2021-05-25 2021-05-25 Outpatient DARYL LAU MDA MDA 1086 [id number] 08:51:12 23:59:00 Chucky patel 2021-05-25 2021-05-25 Outpatient DOROTHY LORENZ, MDA MDA [id number] 10:29:47 11:57:52 YUMI patel 2021-05-25 2021-05-25 Outpatient DARYL LAU MDA MDA 1086 [id number] 08:22:09 08:50:00 Chucky o amanda 2021-05-24 2021-05-24 Outpatient DARYL LAU MDA MDA [id number] [id number] 14:48:05 23:59:00 Chucky o amanda 2021-05-23 2021-05-23 Outpatient DARYL LAU MDA MDA 1086 [id number] 15:22:13 23:59:00 Chucky o amanda 2021-05-23 2021-05-23 Outpatient DOROTHY LORENZ, MDA MDA [id number] 08:29:28 15:21:00 YUMI patel 2021-05-23 2021-05-23 Outpatient DOROTHY LORENZ, MDA MDA [id number] 08:49:56 14:05:15 YUMI patel 2021-05-23 2021-05-23 Outpatient DARYL LAU MDA MDA [id number] 06:28:35 08:28:00 Chucky o amanda 2021-05-22 2021-05-22 Outpatient DARYL LAU MDA MDA [id number] [id number] 14:50:33 23:59:00 Chucky o amanda 2021-05-19 2021-05-19 Outpatient DARYL LAU MDA MDA [id number] 11:03:15 13:40:55 Chucky patel 2021-05-18 2021-05-18 Outpatient DOROTHY DAWSON, MDA MDA [id number] 09:16:35 23:59:00 ALEXANDRA patel 2021-05-18 2021-05-18 Outpatient DARYL LAU MDA MDA [id number] 15:19:23 15:19:23 Chucky o amanda 2021-05-16 2021-05-16 Outpatient DARYL LAU MDA MDA [id number] 08:30:00 23:59:00 Chucky patel 2021-05-11 2021-05-11 Outpatient DARYL LAU MDA MDA [id number] 12:11:49 23:59:00 Chucky patel 2021-05-11 2021-05-11 Outpatient DOROTHY LORENZ, MDA MDA [id number] 13:49:12 16:28:29 YUMI patel 2021-05-11 2021-05-11 Outpatient DOROTHY DAWSON, MDA MDA [id number] 08:59:55 15:39:22 ALEXANDRA patel 2021-05-11 2021-05-11 Outpatient DOROTHY DAWSON, MDA MDA [id number] 10:00:00 12:10:00 ALEXANDRA patel 2021-05-11 2021-05-11 Outpatient DOROTHY DAWSON, MDA MDA [id number] 09:15:00 09:59:00 ALEXANDRA patel 2021-05-09 2021-05-09 Outpatient DOROTHY SALINAS, MDA MDA [id number] 11:38:34 11:38:34 LEONID Locke o amanda 2021-05-09 2021-05-09 Outpatient DARYL LAU MDA MDA 1086 [id number] 11:38:24 11:38:24 Chucky o amanda 2021-05-06 2021-05-06 Outpatient DOROTHY WIGGINSMARYRuben, MDA MDA [id number] 10:53:13 23:59:00 ARIANE patel 2021-05-06 2021-05-06 Outpatient EL HOFSTEDE, MDA MDA [id number] MD 10:44:38 10:52:00 ARIANE patel 2021-05-06 2021-05-06 Outpatient DOROTHY DAWSON, MDA MDA [id number] MD 08:30:00 10:43:00 ALEXANDRA patel 2021-05-06 2021-05-06 Outpatient EL JACKIE, MDA MDA [id number] MD 07:45:03 08:29:00 ENE patel 2021-05-04 2021-05-04 Outpatient EL DARYL ARIZA MDA MDA [id number] [id number] MD 10:40:00 23:59:00 Chucky o amanda 2021-05-04 2021-05-04 Outpatient DOROTHY DAWSON, MDA MDA [id number] MD 10:16:12 12:58:49 ALEXANDRA patel 2021-05-04 2021-05-04 Outpatient DOROTHY LORENZ, MDA MDA [id number] MD 09:45:00 10:39:00 YUMI patel 2021-05-03 2021-05-03 Outpatient DOROTHY DAWSON, MDA MDA [id number] MD 08:06:41 23:59:00 ALEXANDRA patel 2021-05-03 2021-05-03 Outpatient DOROTHY DAWSON, MDA MDA [id number] MD 06:25:36 06:25:36 ALEXANDRA patel 2021-05-02 2021-05-02 Outpatient EL MDA MDA [id number] MD 13:03:47 13:06:58 Chucky patel 2021-04-22 2021-04-22 Outpatient EL MDA MDA [id number] MD 11:48:16 11:48:16 Chucky o amanda 2021-04-22 2021-04-22 Outpatient EL MDA MDA [id number] MD 11:48:13 11:48:13 Chucky o amanda 2021-04-22 2021-04-22 Outpatient EL MDA MDA [id number] MD 11:48:12 11:48:12 Chucky o amanda 2021-04-22 2021-04-22 Outpatient EL MDA MDA [id number] MD 11:48:10 11:48:10 Chucky o amanda 2021-04-22 2021-04-22 Outpatient EL MDA MDA [id number] MD 11:48:08 11:48:08 Chucky o n 2021-04-22 2021-04-22 Outpatient EL MDA MDA [id number] 11:48:06 11:48:06 Chucky o n 2021-03-18 2021-03-18 Outpatient [facility] [id number] 2021-02-15 2021-02-15 Outpatient [facility] [id number] [facility] 2021-01-11 2021-01-11 Outpatient [facility] [id number] [facility] 2020-10-26 2020-10-26 Outpatient [facility] [id number] [address] [place] [id number] 00:00:00 00:00:[address] 2020-04-07 2020-04-07 Outpatient [facility] [id number] [facility] 2020-03-15 2020-03-15 Outpatient [facility] [id number] [facility] 2020-02-11 2020-02-11 [facility] [id number] [facility] 09:19:00 09:19:00 t Specialty/U Myah kes - Special[facility] rology [facility] Clinics 2019-12-23 2019-12-23 [facility] [id number] 13:20:00 13:20:00 t [place] [place] [employer] [facility] - Drive [facility] l Medicine Outpati ent Clinics 2019-12-12 2019-12-12 [facility] [id number] [address] 11:00:00 11:00:00 t [place] [employer] [facility] Medicine l Medicine Outpati ent Clinics 2019-12-04 2019-12-04 [facility] [id number] 08:44:00 08:44:00 t [facility] Medicine Outpati ent Clinics 2019-11-21 2019-11-21 [facility] [id number] [address] 16:47:00 16:47:00 t Specialty/U Myah kes - Specialty rology Memori a /Urology Clinic l Clinic Outpati ent Clinics 2019-11-14 2019-11-14 [facility] [id number] 08:00:00 08:00:[address] [facility] [place] [place] Outpati ent Clinics 2019-11-13 2019-11-13 [facility] [id number] 14:40:00 14:40:[address] [facility] [place] [place] Outpati ent [facility] 2019-10-24 2019-10-24 Outpatient [facility] [id number] [place] 00:00:00 00:00:00 PAT [address] 2019-10-22 2019-10-22 [facility] [id number] 14:12:00 14:12:00 t Specialty/U Myah kes - Specialty rology [facility] a /Urology Clinic l Clinic Outpati ent Clinics 2019-10-14 2019-10-14 Outpatient [facility] [id number] [place] 00:00:00 00:00:00 PAT [address] Results Test Description Test Time Test Comments Results Result Comments Source Pathology Biopsy Interpretation 2021-08-31 21:40:26 Test Item Value Reference Range Interpretation Comme nts Submitted s1nhdZKhTDFla0xnTXOvtQTmFdNrDeJeJoSjLfhbeTYoJDockeJiLBqwe1FjE0ErTnMoYHsyvbOvZIKx GzggiixaYJDmDJU4xoBoJYFtWRlrENTuTOykBy9lpTQouKxbChKjCIPav9zrjnGNzsjknFl6s0yaIFRv CgY0oCJzEYfjX6yiyeFasGBbSNYjOCt4xJ06WHAsdA8 Clinical bpNSuDPxdicBnVlR0OLloOZVkKrZ5CZKejEMjIQDnA7tkJLEbGYynOUQaEWxzbTMrZNU6mNfjt7F3gOH oxLYgaUguWaUcSvOmHnRFs7IwAGk7qHeeG9PgYTDaGwL0aJCtRSQsYOgaFICfJDKqoeS0lJ16UGnujfP 4iTPlg9Naa37fs282cE1zcFGqICT2LKKcMENywSCyPS History OjAQO7PVHcfPEqY2efXFNfMD3wagqkLNimLFtyBHHzeFJ7QXZajENnY9CrKSGgNCglHXBpdyw3XxQpNn 7jmSKjrOulOEtpb0xoe1jebOCwPtn7CBPsTrWiTeujHRyix8Ani3qtOTXjvi2sVLH8lJSdmWykg8A0dT NsFDOroLMkzdJkDJQiYmI9NUhfXL5fai77ZPYcGWA5z (test code m7glNGcgUqneeYwiSVgGPraY6AlPXPaf896VVGzQ5JgVIOoo5M5awYsKzHoPJZxrBB3wfP9XHXnFBx9n ZDvibX6guTzkXAgQ0xrwQ9aAIJvKS8fjqedi4npZOhvBImxGCPumQR5czF9ZEBafZXrU0FnbH1zIAWhK AfuNLOlapv0YrEiHi8chRVbsZanEPqxMsmaSZtyLMXp = 66257) zuTcwvHqxHckJAZjIGTqCDklIHRrNLzrZJJtHZPqExRewRttcByptQ4gYmFgTnRmETehVY6yAJFpS0dn rVKtLVShJPHfB5lqQaNaeE1ayUibDSywheInXGgqn89jUPExsFOeRT5nzNObbfBgjUSdEP4cqXFmxQib ncbip3Eho2KgW9zzmUFnFHeNJZPwHZ1qlXbbmI9eNnM bMmUpMwiiUY6cODWiW8bjgJZbLKAbPJYyP4ouXbBdzJ0bhVzqUDybx lSwMPLpwc17 Diagnosis e0fioLGlRBMluTI0TjGsKMXxe2ebw8ZzlIMagLVeJZgbmRUyqnPlmb09gRW9pF03QG4sEZHvSoB0KMBh vjM6Vjk9EIReHJWhhSYrK449y5qiq1pbohAckUT4VCBcCEQdP8AwTQ7oTBTejCUmC74kgPUrEVP7HQDx FEZuuDLdCNDbHWU0XAMppZGlK1pqLLPhID8shubgCAu (test code qTVkvFHQgaZM9CAFezVTjQ8LoPTEgVWquQVMydoq3TzAnTa7vzTDduYksQOhtFMBeWSJaNPxqCKRtGrO sR4DpFXG0WAM7c7AxxjSvJKMeiR4tk4d0SBZvelfliLjgEWbesF72KfGtP7KdBJX6x4SfivQnKV32V67 dBYU7jMLkKW4aSGNmKEoct8R6iIUeWHNoz7WwWVxniF = 34) hsZURbehonnRVcdHrfPDeoKKVoL7XhYLM3FTE8v96rO0wsCIuus9UttOOmXW45zpVjYQZfrY8bf9r6AV DkganvlPfdGLfxhK79SpGeC4EnQGAydNBcoSKlmqIieXThvrCryCnvqqBzCV40X19iDNJ9lHXtJUOsDN J1wKGxJJdhh9Unl0FzsFn4YttsTYUeZd8iZNmxNUSmj PArOmOotNMpJIthWJEmjsznlucpzGNiaVNsCRldULtWLuUpi5XzwP0mAV0aQMtdsEFewHwvNOwzjJN9S UIfGRZdGMCcHVRvpTzxtLBjWlfyFZAseFqeORrmluDjkOWyFHEeSDYCMoKSfS4aCTFkTETbIOE8yamaD CGzPWcdbl5amNgzdce5dAbkLezyzNB0EoubDOLylAo5 RuWddCicSzTuCHBaHNECmQ7bnDOqS8taaqVfzL5weYYrJWBakkyojWRdfQajJVubIAXtE5RiVXH7ZGSr oU4cDOXxXWMxeAbqVTWvOYn9itWhHLhqo0IqhIrjsjP8BY4eSSVgy0AkgCQdxP3xgNFzCRCed3RueRhu cGFyXGxpNzIwXGxpbjcyMFxjZjAgVHVidWxhciBhZGV tr53tBgchSAPahVByAWzzNGF6 Gross f7jbbRFbEIDhnYTODTjeLOhsmuWtZSPlpQFmR1PquygrUIzaYA5uGM3vgZbhkYClwZJcMA6UGZKrCbLa UUJjfUNokcVgAvCkUMZlnYEkkGZ5UGHfAP8lvjuzIEymACezPPFrjnX5PAPjoXScX7MqRQPdJB1ckdpj IYA6APpxpZ5bebZLSwrrIi7uiKDrqNuiBiMsEeUtKNM Descriptio bBJNySHWqmJndNAVpOXm9zB2RFuqdW53vt5U0Ddr2ULLuUVGjJ0AnLN3fEITtlIWoF02DIulaZVW4DJI NXjloSOVlNX0Gy7psLRQgoKAfHBL1FVrxqHNhYZUrKYFmESt3NNEqBNxkhJTxTI9baQxpRoahpPbpf4D eoWFmVQtwXSFeHMGmEUumSWZvKW4WQlBeJOFmCSHgYE n (test gkQVl2ZSu7MZ8JRqLeXHBwEJM2QKW4VWHsXUn9TQhfQU2PKPSsIEW8VOgcXBExYXVqEcMkFCo8HLIwRK moNTLeeZAsCIkpDmVvOMLpUGudWlErBHNdPPkujqV8APVfSGhqTMGdCjJlBYWZWqyiYCUhCXrjaEemdA 5uKVVxL51rl4HUw9PnFT4EJVw4iqClrkhdmW0oRLIbv code = tNvBRcrnATeI6iqRbzgJvCpSrZyTDXQiX7fLR86qTbpXGDkEUXpbM43DJZbREUuOJUsIeLxb8M1STAhw uA1qAQcyZHwKuUsX01hmpCnZOFxKaJfP66rHTKbYkV2BDFaRCXhdoWrfzEuhHBnaDBdaTN4IXDvjX7nR QVwZJFclUBnzNIecBrxJabctPW0ONmbTxvuuG2kvOZB [id number] OBOBRfqNEayznoIwVV9SYP7CGaUNED61XkZvAUD7AWpQT7PMbNM2Tfw4HXq4tAtiMwwpahGblVSuSdGB pK2HBTvjElfgwGL3XMisEngmzI9ozFRIZJVHDriZHalpcfKkUR5UGJ4CDV7WdQWzEQV4oDS7IKPTWhli gEU8dTN2qO59ESJiYFXqxCTkPYegQ057NLKzIDfoQYb ) [file] == Disclaimer q9zhcPQsSEQkrVObAbPrTWUgTJQth6yjLCJjjWQvPpCaXyEdEbVeXvziaYZuSZMpPdAzb4lwu200pOQn v8xlYJCrGxI9nCLcROVzfTKvI402FDEsFBvsa3hjq5OoOQYceIPgl6U5WUXBzryquPq9vErxI96hr5O9 FlnbD8kbQGFfPDJyA3TaAH5uOYDnZfv2YUX7TCF0CQI (test code jZRYrT9XkHN9tJVPijGIuXZb0v2qbbSwhOJZnAEL6v0auVJdrzsNmWG3jux5iwOi6l1smvuWjMKLaRXO huPLNRHGzK3JbsVfmAu3yaOg1vYacIgcjBIG7Fqy4DS6zmf68ore7zWydETEnbacqUkB5DLmuFJHgbzp gRDw8ZJnzMYNypRK4ODNxwUDlN2ObNWIjRC2frwm5SV = 9844) I6SUbdGDNxQcL3HCMqyZTdVJNxxJpcVTbbe824PMN9YoWwTR9jO0Maa5R1eN8wtFNqWJOyjJOtHaHvAA Pkoi8osMOeCKmif3JlTTP9kpL4kHRsdJXvFPDjFR43Jfktq7RbHqgbBZP5TJEozqPbv4Vqb5sgFuMjni VsS2diP4NiUHOvUHAoIAOwIxYzguCxm1Iub7EcaVTjg Lb5h9juNSIvOLFipSolr0ooRGO3WVJbY7N3bDJcq3mkJGcqJYUvjPH7reT5ZWNmxVYcI9ZgoW1aOLUpP Q6iefx4s3gqEGU6OPzvTJHpCoV3jpR4PKQpaIPqMDXawCmfDSohq537PKI8IiZaAXDte3BkQ7CehHloU 13kzSavK40gADNzfZouuV9joLigrJ5rYwEdTgJeZQys pGzcmQGarsthQMfreeU7YDseobmtOVNmTWgcQ8jtXoGrFTJurHvmQVtow5IlKTReBAJmJweftaG9KASR v62zHASbu1ViHZDleG3nhUTiVSmvvnGlzEA4QTeenbCkFcPmksNvMOWedH9bLBXrPL1iFHPoxhRxkn4u igZtJUXqOVScE4FfydrigCbwvxBdZSQzfz5pbtJyPLV 8QVQKXR1YMLYyERAmp26sXQWwrIofhG1chAKvbiEdCXFpy2LdyE2rsUIWQASdW5puHQ5mXTzii0AwxGJ qxYHyvSI2MNPkj1DmFfMcwkMsvFSknLByC7UelTrrH7bwOHTnDENpcvLssLByx0IeEPNcrBG0qPOgGZ6 DAtMSh66fEGUwFJCCvrNhUQQdrScflZW7daP1vP7zIr LOMiNjrGKulFLpZoilWAGtt995xj0qdtI0PUTeLSNhacyyi8MiOFCmMASuxP36YEPqGPYabe0roguucB WkfnZpG7Fufgr9lW1bERWxMVohPOThVKKzZuIuoBXcIkMtMaZbbTuthBsrADaqPrTsIGBeSFvhP9cySw FcZnMyMlxwYXJ9 MD DorantesPO Glucose [id number] 15:26:33 Test Item Value Reference Interpretation Comments Range POC Glucose (test 131 mg/dL 70-99 H Capillary blood code = 61236-0) samples, e.g . obtained by fingerstick, ma y have inaccurate resu lts in patients with decreased perip heral blood flow. Met hod description: Al l results are toan sured using Electrochemistr y test methodology. Th e glucose in the sample mixes with the reagents on the test strip. The reac tion produces an bart ctric current. The am ount of current prod uced is proportional to the glucose concentration i n the blood. PO Sample Type (test Capillary code = 9554) Performing Lab (test [facility] code = 61596) [facility] Cli nical Lab, [facility], [facility], [place] [address]; [employer] Engineer: Paty Chavez MD Lab Interpretation Abnormal (test code = 74359-5) MD DorantesPhosphorus [id number] 10:30:36 Test Item Value Reference Range Interpretation Comments Phosphorus (test code = 2777-1) 3.0 mg/dL 2.5-4.5 MD DorantesCalcium [id number] 10:30:35 Test Item Value Reference Range Interpretation Comments Calcium Lvl (test code = 87362-8) 8.4 mg/dL 8.4-10.2 MD DorantesElectrolyte Lxzqb5155-20-94 10:30:34 Test Item Value Reference Range Interpretation Comments Sodium Lvl (test code = 138 See_Comment [Au tomated message] 4347-2) The system [employer]TRA generated this result transmitted ref erence range: 136 - 14 5 mEq/L. The refe rence range was not u sed to interpret this result as normal/abnor mal. Potassium Lvl (test code 3.4 See_Comment L [A utomated message] = 7893-3) The system [employer]TRA generated this result transmitted ref erence range: 3.5 - 5. 1 mEq/L. The refe rence range was not u sed to interpret this result as normal/abnor mal. Chloride (test code = 101 See_Comment [Auto mated message] ) The system [employer]TRA generated this result transmitted ref erence range: 98 - 107 mEq/L. The refe rence range was not u sed to interpret this result as normal/abnor mal. CO2 (test code = 2028-02) 26 See_Comment [A utomated message] The system [employer]TRA generated this result transmitted ref erence range: 22 - 29 mEq/L. The reference r jackie was not used to interpret this result as normal/abnor mal. Anion Gap (test code = 11 See_Comment [Aut omated message] 87822-7) The system [employer]TRA generated this result transmitted ref erence range: 4 - 14 m Eq/L. The reference r jackie was not used to interpret this result as normal/abnor mal. Lab Interpretation (test Abnormal code = 63598-8) MD DorantesGlucose [id number] 10:30:33 Test Item Value Reference Range Interpretation Comments Glucose Level (test code 136 mg/dL 70-99 H Eff ective 12/29/15, = 2345-7) the glucose reference inter vals have been [...] diabetes Lab Interpretation (test Abnormal code = 22699-9) MD DorantesGlomerular Filtration Ikdz7980-91-56 10:30:31 Test Item Value Reference Range Interpretation Comments eGFR-AA (test code 108 See_Comment Normal eG FR: >= 60 = 89500-1) mL/min/1.73 m2N ote: The eGFR is calculated [...] failure <15 [Automa mary message] The system [employer]TRA generated this result tra nsmitted reference range : >=60 mL/min/1.73 sq. m. The reference range was not used to interpret th is result as normal/abnormal . eGFR-JOSELITO (test code 94 See_Comment Normal e GFR: >= 60 = 03951-8) mL/min/1.73 m2N ote: The eGFR is calculated [...] failure <15 [Automa mary message] The system [employer]TRA generated this result tra nsmitted reference range : >=60 mL/min/1.73 sq. m. The reference range was not used to interpret th is result as normal/abnormal . MD DorantesMagnesium Qoqsk5371-17-80 10:30:30 Test Item Value Reference Range Interpretation Comments Magnesium (test code = 67760-3) 1.8 mg/dL 1.6-2.6 MD Dorantes.Serum Gefhvkwfvb6482-15-83 10:30:29 Test Item Value Reference Range Interpretation Comments Creatinine (test code = 2160-0) 0.71 mg/dL 0.67-1.17 MD DorantesJiwtdqsyAOH0439-95-61 10:30:28 Test Item Value Reference Range Interpretation Comments BUN (test code = 3094-0) 15 mg/dL 6- MD DorantesMjaffnbiLeuwklkaqwig9820-53-29 10:00:41 Test Item Value Reference Range Interpretation Comments Neutrophil % (test code = 71.7 % 42.0-66.0 H 770-8) Lymphocyte % (test code = 14.8 % 24.0-44.0 L 736-9) Monocyte % (test code = 6.6 % 2.0-7.0 5905-5) Eosinophil % (test code = 5.7 % 1.0-4.0 H 713-8) Basophil % (test code = 0.7 % 0.0-1.0 47130-9) IGRE % (test code = 0.5 % 0.0-0.4 H IGRE % c ount 06525-6) includes Metamyelocytes, Myelocytes, and Promyelocytes. Neutrophil Abs (test code 3.16 K/uL 1.70-7.30 = 751-8) Lymphocyte Abs (test code 0.65 K/uL 1.00-4.80 L = 731-0) Monocyte Abs (test code = 0.29 K/uL 0.08-0.70 742-7) Eosinophil Abs (test code 0.25 K/uL 0.04-0.40 = 711-2) Basophil Abs (test code = 0.03 K/uL 0.00-0.10 704-7) IG Abs (test code = 0.02 K/uL 0.00-0.04 74782-7) Lab Interpretation (test Abnormal code = 71789-6) MD Dorantes.[id number] 10:00:36 Test Item Value Reference Range Interpretation Comments WBC (test code = 4.4 K/uL 4.0-11.0 6690-2) RBC (test code = 789-8) 3.03 See_Comment L [Au tomated message] The system [employer]TRA generated this result transmitted ref erence range: 4.50 - 6 .00 M/uL. The refer ence range was not u sed to interpret this result as normal/abnor mal. Hgb (test code = 718-7) 8.3 See_Comment L [Au tomated message] The system [employer]TRA generated this result transmitted ref erence range: 14.0 - 1 8.0 gm/dL. The refe rence range was not u sed to interpret this result as normal/abnor mal. Hct (test code = 26.8 % 40.0-54.0 L 4544-3) MCV (test code = 787-2) 88 fL 82-98 MCH (test code = 785-6) 27.4 pg 27.0-31.0 MCHC (test code = 31.0 See_Comment [Automate d message] 786-4) The system [employer]TRA generated this result transmitted ref erence range: 31.0 - 3 6.0 gm/dL. The refe rence range was not u sed to interpret this result as normal/abnor mal. RDW-SD (test code = 46.0 fL 35.1-46.3 62928-3) RDW-CV (test code = 14.1 % 12.0-15.5 788-0) Platelet count (test 236 K/uL 140-440 code = 777-3) MPV (test code = 10.0 fL 4.0-10.4 65807-5) INRBC (test code = 0.0 % See_Comment The INRBC (instrument 72136-2) NRBC) value ref lects the enumeration of nucleated red b lood cells contained in a 200uL sampleof whole blood analyzed by the instrument. Thi s value maydiffer from the NRBC value repo rted in a manual differential,wh ich is based on a 100 cell differential. [Automated mess age] The system [employer]TRA generated this result transmitted ref erence range: <=0.0. T he reference range was not used to int erpret this result as normal/abnormal . Lab Interpretation Abnormal (test code = 00474-2) MD DorantesProthrombin Time with [id number] 11:12:21 Test Item Value Reference Range Interpretation Comments PT (test code = 5902-2) 14.9 See_Comment H [Au tomated message] The system [employer]TRA generated this result transmitted ref erence range: 11.5 - 1 3.9 second(s). The reference range was not used to int erpret this result as normal/abnormal . INR (test code = 6301-6) 1.26 0.90-1.10 H Lab Interpretation (test Abnormal code = 97829-3) MD [place]ston Interpretation Antibody Screen Vcayvdme6028-11-24 13:43:46 Test Item Value Reference Range Interpretation Comments TMP Auto Neg At the present ABSC Interp time, patient (test code = plasma shows no ____NICHOLE GAN 7535) evidence of RBC SERA HUMPHREY MD alloantibodies. - [id number] mary by: MD Carri ESTRADA [id number] Date/Time: 08.03 8:43 AM CDT Transcribed Rohan e/Time: 08.26.2021 8:43 AM CDTElectronical ly Signed By: MD Carri PEÑA [id number] on 8:43 AM Julián [place] Interpretation Lrzvnzyqcf2046-43-22 13:43:45 Test Item Value Reference Range Interpretation Comments TMP XM Interp RBC units (test code = crossmatched for 7566) transfusion appear ADR DWAYNE GAN acceptable. MD Carri JIMENEZ [id number] by: MD Carri ESTRADA [id number] Date/Time: 08.03 8:43 AM CDT Transcribed Rohan e/Time: 08.26.2021 8:43 AM CDTElectronical ly Signed By: MD Carri BILLINGSLEY 143 02 on 08.26.2021 8:43 AM C MD AndersonPrepare RBC:accc, 2 Hwmty6375-16-49 09:09:32 Test Item Value Reference Range Interpretation Comments PRBC Product Ready 2 Red Blood Cells (test code = Available - 48132-0) Order Form 03 when ready for product issue. 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 MD DorantesAntibody Cqhgvt1383-31-68 03:13:05 Test Item Value Reference Range Interpretation Comments ABSC. (test code = 890-4) Negative ABSC MD DorantesIyjrrffeOJHNv6722-42-16 03:13:04 Test Item Value Reference Range Interpretation Comments ABORh. (test code = 882-1) O NEG MD DorantesClot Expiration Agjp3845-94-99 03:13:03 Test Item Value Reference Range Interpretation Comments T & S Expiration (test code = 08/28/2021 5318) MD DorantesConfirm OXONf2339-72-23 01:27:34 Test Item Value Reference Range Interpretation Comments ABORh Confirm. (test code = 882-1) O NEG MD DorantesCOVID-19 (SARS-CoV-2)Izwfllrrzkbf-MB7241-35-25 00:26:20 Test Item Value Reference Range Interpretation Comments COVID19 Not Detected Not Detected (SARS-CoV-2) (test code = 27035-6) COVID19 SARS Inpatient Indication (test Admission code = 56802) Covid 19 Comment See Note The rufino S ARS-CoV-2 (test code = [place] [address]) use on the dharmesh s Alyson System [...] ect COVID-19. A fa ct sheet for patie nts provided by the stock feeder ([employer]) can be rev iewed at: https://www.Aditive .gov/m edia/143411/denys nload. A fact sheet fo Health Care pro viders is provided by the stock feeder ([employer]) and can be reviewed at: https://www.Aditive .gov/m edia/471583/denys nload Results must be interpreted wit hin [...] is assay has been authorized by t [facility] for use only un isabel Emergency Use Authorization ( EUA) in laboratories that have been CLIA-certified to perform moderate-comple xity and high-comple xity tests. The Microbiology Laboratory at [facility] [place], CLIA Accreditation #[id number] and CAP Accreditation #[id number], verif ied the performance characteristics of this assay. Int ernal controls are us ed to monitor all sta ges of the test proces s. MD DorantesQkfxwpqscBJV6019-46-75 23:59:55 Test Item Value Reference Range Interpretation Comments aPTT (test code = 32.7 See_Comment [Automate d message] The 59135-2) system which ge nerated this result transmit mary reference range : 24.7 - 36.8 second(s). The reference range was not used to interpr et this result as shavon l/abnormal. MD oDrantesFractionated Lqgjchsjf5346-58-62 23:57:02 Test Item Value Reference Range Interpretation Comments Bili Total (test 0.4 mg/dL See_Comment Indocyanine Green (ICG) code = 1974-) may cause fal sely elevated biliru bin results. Total and direct bilirubin must not be measured from s amples containing indo cyanine green. False el evation of total bilirubin can be seen in patient s with IgG concentrations above 28 g/L. [Automate d message] The system INTTRA generated this result transmitted ref erence range: <=1.2. T he reference range was not used to interpr et this result as normal/abnormal . Bili Direct (test 0.2 mg/dL See_Comment Indocyanin e Green (ICG) code = 1967-12) may cause fal sely elevated biliru bin results. Total and direct bilirubin must not be measured from s amples containing indo cyanine green. [Automat ed message] The sy stem which generated this result transmitted ref erence range: <=0.3. T he reference range was not used to interpr et this result as normal/abnormal . Bili Indirect (test 0.2 mg/dL 0.0-0.9 code = 1970-1) MD DorantesTotal Whwbnwb6129-92-07 23:57:00 Test Item Value Reference Range Interpretation Comments Total Protein (test code = 2885-2) 7.2 g/dL 6.4-8.3 MD DorantesAlkaline Lvwpxnzumli2306-25-25 23:56:56 Test Item Value Reference Range Interpretation Comments Alk Phos (test code = 6768-6) 64 U/L 40-129 MD DorantesYvhxbhygYBB9329-38-31 23:56:54 Test Item Value Reference Range Interpretation Comments ALT (test code = 29 U/L See_Comment [Automated message] The 70007-10) system which ge nerated this result transmit mary reference range : <=41. The reference range was not used to interpr et this result as shavon l/abnormal. MD DorantesAlbumin Kodzq5668-78-16 23:56:53 Test Item Value Reference Range Interpretation Comments Albumin Lvl (test code 3.7 See_Comment [Aut omated message] The = 4643) system which ge nerated this result tra nsmitted reference range : 3.5 - 5.2 gm/dL. The refe rence range was not used to interpret this result as normal/abnormal . MD DorantesAspartate Srurizvasljmavpg1733-58-16 23:56:51 Test Item Value Reference Range Interpretation Comments AST (test code = 32 U/L See_Comment [Automated message] The 1920-01) system which ge nerated this result transmit mary reference range : <=40. The reference range was not used to interpr et this result as shavon l/abnormal. MD DorantesCOVID-19 (SARS-CoV-2) PCR-Asymptomatic [id number] 10:04:37 Test Item Value Reference Range Interpretation Comments COVID19 (SARS Not Detected Not Detected CoV-2) Result (test code = ____This test i s a 36655-2) qualitative reverse-transcr iptase polymerase mario alberto n reaction (RT-PC R) developed for t he Melba RUFINO 680 0 system and inte nded for qualitative detection of SA RS CoV-2 RNA in nasopharyngeal and oropharyngeal s wab specimens colle cted from any indivi duals, including those suspected of CO VID-19 by their health care provider, and t hose without symptom s or other reasons t o suspect COVID-1 9. A fact sheet for patients provid ed by the manufacture r ([employer]) c an be reviewed at:https://www. fda.go v/media/882683/ downlo ad. A fact shee t for Health Care pro viders is provided by the stock feeder ([employer]) and can be reviewed at: https://www.fda .gov/m edia/867205/denys nload Results must be interpreted wit hin the context of all relevant clinic al and laboratory find ings and should not form the sole basis for a diagnosis or treatment decis ion. Positive result s do not rule out bacterial infec tion or co-infection with other viruses. Negative result s do not rule out SARS-CoV-2 and must be combined wit h clinical observations, p atient history, and/or epidemiological information. "Presumptive Positive" resul ts are due to partial amplification o f SARS-CoV-2 targ ets and indicates l ow amounts of viru s present in the specimen at or near the limit of detection. Regardless, individuals wit h "Presumptive Positive" resul ts should be manag ed per institutional guidelines as individuals pos itive for SARS-CoV-2 virus, including use o f appropriate inf ection control protoco ls. Internal contro ls are included to ass ess for possible amplification inhibitors. If inhibition is detected, testi ng is repeated and if inhibition is confirmed the specimen is res ulted as "Invalid". W hen an "Invalid" resul t occurs, it is recommended to wait 3 days before submitting a ne w specimen for te sting if clinically indicated. Thi s assay has been approved by the FDA for use only un isabel Emergency Use Authorization ( EUA) in laboratories that have been CLIA-certified to perform moderate-comple xity and high-comple xity tests. The performance characteristics of this assay were verified by the Microbiology Laboratory at [facility] [place], CLIA Accreditation # : [id number] and CAP Accreditation # : [id number]. COVID19 SARS CONSUMER SALES REPRESENTATIVE Swab Source (test code = 95512) COVID19 SARS Pre-Out of [place] Indication (test Procedure code = 08050) MD Edgar Respiratory Culture w/Gram Ucnzx6834-42-18 01:40:46 Test Item Value Reference Range Interpretation Comments Final Report (test code Normal site shayna A = 8488) present.Generally of low significance.Correlate with clinical data and culture history. Path Review (test code The results have been A = 8492) reviewed and electronically signed by Pathologist:BERTA BRADY MD #[id number] Gram Stain Report (test Moderate WBC's A code = 648-6) seenEpithelial cells seenModerate Gram Positive CocciModerate Gram Variable Madan Lab Interpretation Abnormal (test code = 14679-8) MD DorantesStreptococcal Urine Antigen Path Xarbto1026-69-67 07:11:21 Streptococcal Urine Antigen Path ReviewPresumptive negative for S. pneumoniae antigen in urine, suggesting no current or recent pneumococcal infection. Infection due to S. 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 Transcribed Date/Time: 07.11.2021 1:11 AM CSTElectronically Signed By: AMAURY SINHA MD, PhD - [id number] on 07.11.2021 1:11 AM [facility] AndersonLegionella Urine Antigen Path Mhkrnq4798-45-50 07:11:20 Legionella Urine Antigen Path ReviewNegative for [...] Electronically signed by Pathologist:Amaury Sinha MD, PhD #[id number] Comment: AMAURY SINHA MD, PhD - [id number] by: AMAURY SINHA MD, PhD - [id number] Date/Time: 07.11.2021 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 Path Review (test Culture yield may be code = 8492) affected by sample quality, prior treatment, and transportation conditions....The results have been reviewed and electronically signed by Pathologist:Amaury Sinha MD, PhD #[id number] MD Juanjo Wilburn (In-House)2021-07-10 12:49:59 Test Item [...] 52 ng/L and o nly reported for e first in a series. He molyzed specimens with Hemolysis Index >100 (100 mg/dl or m oderate hemolysis) may cause interferences a nd falsely low res ults. [Automated mess age] The system INTTRA generated this result transmitted ref erence range: <=18. e reference range was not used to int erpret this result as normal/abnormal . Lab Interpretation Abnormal (test code = 54060-5) MD DorantesCalcium Ionized, Nerunz2158-32-08 04:43:41 Test Item Value Reference Range Interpretation Comments V Ion Ca (test code = 88871-0) 0.96 mmol/L 1.15-1.29 L Lab Interpretation (test code = Abnormal 25277-7) MD DorantesStreptococcus pneumoniae Urine Cwzihxo9556-55-51 23:04:40 Test Item Value Reference Range Interpretation Comments Streptococcal Urine Antigen Negative Interpretation (test code = 45416270) MD DorantesLegionella Urine Rigigic1890-46-64 22:58:02 Test Item Value Reference Range Interpretation Comments Legionella Urine Antigen Negative Interpretation (test code = 8172560) MD DorantesRjendpblJmsflfksvyibs9593-91-08 00:33:03 Test Item Value Reference Range Interpretation [...] extended diluti on as it exceeds the stock feeder's recommended krishnamurthy it. Caution should be exercised when interpreting han ch values and done in conjunction wit h clinical contex t. [Automated mess age] The system INTTRA generated this result transmitted ref erence range: <=0.08. The reference range was not used to int erpret this result as normal/abnormal . Lab Interpretation Abnormal (test code = 89201-0) MD DorantesGeneral Laboratory Add-On Ibaq8965-65-85 22:22:54 Test Item Value Reference Range Interpretation Comments Ordered (test code = 6568) Test Added Test Needed (test code = 7604) Procalcitonin MD Breaux Sqhit2320-69-13 19:02:48 Test Item Value Reference Range Interpretation Comments D-Dimer (test code = 0.77 See_Comment H Recheck ed and 5412) VerifiedThe cut off value for exclu mir of venous thromboe mbolismis <0.51 mcg/mL FE Us (fibrinogen equ ivalent units). [Autom ated message] The sy stem which generated this result transmit mary reference range : 0.10 - 0.50 mcg/ml FEU . The reference range was not used to interpr et this result as normal/abnormal . Lab Interpretation Abnormal (test code = 89778-5) MD DorantesCardiac Bctgl2338-10-34 18:51:30 Test Item Value Reference Range Interpretation Comments CK (test code = 5206) 112 U/L 39-308 CK MB (test code = 2.4 ng/mL See_Comment [Automat ed message] 7736) The system INTTRA generated this result transmitted ref erence range: [...] res ults. [Automated mess age] The system INTTRA generated this result transmitted ref erence range: <=18. Th e reference range was not used to int erpret this result as normal/abnormal . Lab Interpretation Abnormal (test code = 42377-3) MD [facility] Chem 8 without Hemoglobin and Pvoygdtfje6630-96-08 18:20:24 Test Item Value Reference Range Interpretation Comments POC NA (test code = 131 See_Comment L [Automa mary message] 92003-7) The system INTTRA generated this result transmitted ref erence range: 138 - 14 6 mEq/L. The refe rence range was not u sed to interpret this result as normal/abnor mal. POC K (test code = 2.3 See_Comment A Method de scription: 60758-1) The i-STAT is a n analyzer used f or in vitro quantific ation of various anal ytes in whole blood. The device uses a s lindsey disposable cart ridge which contains microfabricated sensors, a calibration che ution, fluidics system , and a waste chamber . Each test cartridge contains chemic ally sensitive biose nsors on a [employer] ip that are config ured to perform [...] L [Automa mary message] 2068-08) The system INTTRA generated this result transmitted ref erence range: 98 - 109 mEq/L. The refe rence range was not u sed to interpret this result as normal/abnor mal. POC VTCO2 (test code 32 See_Comment H [Autom ated message] = 2026-06) The system INTTRA generated this result transmitted ref erence range: 24 - 29 mEq/L. The reference r jackie was not used to interpret this result as normal/abnor mal. POC Anion Gap (test 21 mmol/L 10-20 H code = 27029) POC BUN (test code = 16 mg/dL 8- 6299-2) POC Crea (test code 1.0 mg/dL 0.6-1.3 Medicati ons, = 70714-8) especially hydroxyurea or supplements, han ch as ascorbate, can interfere with test results causing a falsely and significantly h igher result than exp ected. If a problem is suspected with a patient's resul t, a sample should b e sent to the laborato ry for confirmatory te sting. Method descript ion: The i-STAT is a n analyzer used f or in vitro quantific ation of various anal ytes in whole blood. The device uses a s lindsey disposable cart ridge which contains microfabricated sensors, a calibration che [employer], fluidics system , and a waste chamber . Each test cartridge contains chemic ally sensitive biose nsors on a [employer] ip that are config ured to perform spec ific tests. The microfabricated sensors measure analyte concent ration by an electroch emical assay. POC eGFR-AA (test 87 See_Comment Normal eGF R >= 60 code = 26679-5) mL/min/1.73 m2 The eGFR is calcula mary [...] f ailure <15 (or eve lysis) [Automated Revision Military] The system INTTRA generated this result transmitted ref erence range: >=60 mL/min/1.73 m2. The reference range was not used to int erpret this result as normal/abnormal . POC eGFR-JOSELITO (test 75 See_Comment Normal eG FR >= 60 code = 64936-0) mL/min/1.73 m2 The eGFR is calcula mary [...] f ailure <15 (or eve lysis) [Automated Revision Military] The system INTTRA generated this result transmitted ref erence range: >=60 mL/min/1.73 m2. The reference range was not used to int erpret this result as normal/abnormal . POC Glucose (test 132 mg/dL 70-99 H code = 87289-5) POC Ion Ca (test 1.00 mmol/L 1.12-1.32 L code = 86686-5) POC Sample Type Venous (test code = 6690) POC Clean Dev (test Yes code = 6672) Performing Lab (test MDA Main Main Ca mpus code = 89515) [facility] MD Dorantes Cli nical Lab, [address], [facility], [place] [address]; Aeronautical Products Sales Engineer: Paty Chavez MD Lab Interpretation Abnormal (test code = 44735-3) MD [facility] Srhkqofa7289-69-20 18:20:23 Test Item Value Reference Range Interpretation Comments POC Critical Comment See Note Test pe rformer notified (test code = 8955) Ordering Licensed Provider and /o r designee of POC Potassium criti nikki Results. MD DorantesCreatine Ybasit9451-15-85 18:26:09 Test Item Value Reference Range Interpretation Comments CK (test code = 5206) 84 U/L 39-308 MD DorantesNT-Pro BNP (In-House)2021-06-22 18:26:08 Test Item Value Reference Range Interpretation Comments NT ProBNP (test code = 1199 pg/mL See_Comment H [Aut omated message] 3057) The system whic h generated this result transmit mary reference range : <=125. The refe rence range was not u sed to interpret th is result as normal/abnormal . Lab Interpretation Abnormal (test code = 06698-3) MD DorantesUqnmekbzAPDZ9414-40-93 18:26:07 Test Item Value Reference Range Interpretation Comments CK MB (test code = 2.6 ng/mL See_Comment [Automat ed message] The 5209) system which ge nerated this result tra nsmitted reference range : <=10.4. The reference r jackie was not used to int erpret this result as normal/abnormal . MD DorantesPathology Outside Acwldxsahvudfj6363-82-77 20:17:02 Test Item Value Reference Range Interpretation Comments Materials Received (test g4kozEHtPGCrjIYyEeLz code = 9973) ZPHqMVSlf6nqTOQudHKp ZzEwMzNcZnRuYmpcdWMx QWKvDeDwg4cmo199aTFc j3bsEFQuIxS5vSOiWATc hZQsI833UCGzMJmax0ar l5PaCQBtuEMjt8F7VUHU uqrfrBh9xQedF36uk0A6 SjwzO1mlKPEiRCNfG3Uo RB0tGTMdOuh7BYD2SCV7 KSBqCBJkZ5EqRS6pQTKx lWGgCIo2c7hweKhmHAGm NYV3n2juSMspmhGoHT4j jg8ulGj7f4jtisGjAHEh KALstHVRZODtR8DlhZbz Nl6zoJj3rZftUkdfRST2 Amj6KK5vdj09quf0yEle STEyyvpdVvJ1GXlmKXVv rizpSTe5DPpuXFRonTvn MFxtYXJncjcyMFxtYXJn rGY1UQAaaCHtZ3AoCKSm SXfrXZBfobs2KeIaWm1q pLUdhJxzWWzfv7pkj8sr cNKfSya5GXMaBqTkNyzu WYlrj5Vjg5hyDIErai1f AWG3yAOqaFisb3L1kOOt ZHVuzGBsxbFiBDXfto15 yZRzbZJmyFXbfe9wjiDe wMJrjFKhLQM7dMXmvjZb LOUddHHjUOIxYT2evCEs DIHsoY1yzyptIOEyOfTv chzuSRRyrOyoqiQtIt8r gGfcOME9HHzgR6urnM9y GfC1HOceV8wnlL8qCFe9 PFtviYU3XXFlpQ4jJA4u mcaoi8hpMyAnTI3tbist t7ycJqPoUK8mgyl4h4ky JWE9QPjqJHXxPmU0zuF2 NDBcaGVhZGVyeTcyMFxm c228WJP8WvSuQZHrq7Fa N8ZxrZecE01tfRobY98j ZIEwsJyawV0vuRvjbX0h DfOaCrUpQLp0fy60OIt1 ctldaPyzXJf6zeZfPOQn UDS8DAPruBRvAVDvJ0k6 idMoLOKoHEM1JQOmdPDi EZBsD5i1kaWgHMB4TVa1 cnBhZGRmdDNcdHJwYWRk YjBcdHJwYWRkZmIzXHRy mGVxjYWnaSHxxX8zyUir MQHteAEihY6gCAY1OJAu cmgzMjBcdHJoZHJcbHRy tg85IXAuyiVzbWXefHpb lWFvMFY5ROYcZFJgLXFg ZVA3UNVaCrOxkhMwQOqd bGJyZHJiXGJyZHJzXGJy YYH4GLDyOkIvpxGbDAtd bGJyZHJsXGJyZHJzXGJy IUM9PVChJbTqkiKhKTvt bGJyZHJyXGJyZHJzXGJy UCT8YHFlHfPerxDiZRso bHBhZHQxMFxjbHBhZGZ0 L0dquGQnWJZjJIzknQGp XQXoS4jxwJQlRDeeZLKm cGFkZmwzXGNscGFkYjBc I5fiFTCkTlXoE1ZuvZp9 MDAwXGNsdmVydGFsdFxj qQZpZMK5IABmCQPpXTNu ZYU5BOYzPtDwxkLiGWli bGJyZHJiXGJyZHJzXGJy UMV7LXDsMaJbumQiVBki bGJyZHJsXGJyZHJzXGJy FAA5XAMtDtVljgFoAUos bGJyZHJyXGJyZHJzXGJy GPT3TZTcGtXusmEtDClc bHBhZHQxMFxjbHBhZGZ0 J6cajPXmLQQqFBsnbKFa YHNuH7aozJIvBDpwDBFs cGFkZmwzXGNscGFkYjBc O1ylXRDtUfVtH9FagQl0 NjAwXGNsdmVydGFsdFxj vAAwXBL6YDKuFUGxWUAo EXF1WGMwYeUrpfIgCOql bGJyZHJiXGJyZHJzXGJy MJW4HFEsOdHdmqStVBai bGJyZHJsXGJyZHJzXGJy LSH3BJSsBmHmoqDxFVgv bGJyZHJyXGJyZHJzXGJy IQC6ICTrReItksPvSLeh bHBhZHQxMFxjbHBhZGZ0 M9tneNHyKUYrGBeemUZg TZTiD1psnANlMVnxZGEk cGFkZmwzXGNscGFkYjBc O2ulHVBsEpGlS5KyeVl9 VpFlSKNjatGueK00Qhuz n8BbDOYuFXW4RJjiGRej bFxwbGFpblxmMVxmczIw PUoidfscJXUaRFhjH9rs JnLtHHNnyKiwRPryq5Hz XGYxXGNmMlxmczIwXGIg CYBnGGBtsA8lPcohP7Ei sN3zFFmiCfssC1hrFZNc w8HqsW0wLBlwrMRfmpqc MVxmczIwXGxhbmcxMDMz TDagE4woWrNjJXBrlEtn YVctn9HsKNWrKWUxIzfa djWdMEk1exLpIHUghJxn nYUyQXgatmVntBpfw8Bn skGuvVbwELPoIBl7opHf aqpncQt1mQObmAyzRPHc cHaggK1rRlJqWuWrQOet bGFpblxmMVxmczIwXGxh eaucOVIgUGhqL1ooGqMy CCLpmOwdXDlqr1AgFTQh YVNqRymubnZfLTExS94k bGVjdGVkXHBsYWluXGYx XGZzMjBcbGFuZzEwMzNc aGljaFxmMVxkYmNoXGYx XNmkB0mcHsBoC2HaOTBr OlPytSTgJ0jgL0JsyPne YXJkXGludGJsXHNzcGFy ZSO6iXFgesJoxMRnbSZy OJOmGDglLGH8aBXqlqwu xTIfjoyrSPbmdbS1TFGu YWluXGYxXGZzMjBcbGFu ZzEwMzNcaGljaFxmMVxk SgMxXZSqVGbpT4laMhTe R9JvTFVaDoUoAgDKTAIe aXZlZFxwbGFpblxmMVxm czIwXGxhbmcxMDMzXGhp S8izKcXkPNGopVuxTUat y3XqFVRdFYXhGvrxswYt JUm0bwQxKHCgnQibpL59 Lholzn16GSFar9ocXNKt B0KamFOyNYMohTQmYVee MDhcdHJwYWRkZmwzXHRy cGFkZHIxMDhcdHJwYWRk ZnIzXHRycGFkZHQwXHRy oIUcAYH4F1a0fmEiSNMj HNg7skHsYJJbLdIrpUMa BRE3ZYz1LlukbxG6lNPr F2v7QjlwbfWgMFdcwYKu hi80KSZdrnGhgROftKkq yYBcNYD0OWNiXFQnPEVh DBD6FPAxKlYzarPeOAxn bGJyZHJiXGJyZHJzXGJy CYP4XEDyDvVqxuCrGWnv bGJyZHJsXGJyZHJzXGJy PNT0AYHrMtDqooLfCFtd bGJyZHJyXGJyZHJzXGJy URE9AAQwRnBiowYxJFaj bHBhZHQxMFxjbHBhZGZ0 W2wdrNJjVDFwFNypkNNr PSRjQ4kmwOOaXUbgKWNx cGFkZmwzXGNscGFkYjBc A6vsPDVxZaQeB6IxeJn8 MDAwXGNsdmVydGFsdFxj aLVaRNR2AQDaCBCyBRCm MCB6GAQlXzIchwImXTkf bGJyZHJiXGJyZHJzXGJy WTH4YIPoLyKrwpUiQRum bGJyZHJsXGJyZHJzXGJy YAG5YDVxQzEqhcStRRyl bGJyZHJyXGJyZHJzXGJy LWJ5AXDvEtGyxiJcFTfx bHBhZHQxMFxjbHBhZGZ0 U1qhxSMgJDWeMXktqUTb OAFyC4jfnJMpOQgmSGHl cGFkZmwzXGNscGFkYjBc C4yiSFTeGeLgO2XquEj5 NjAwXGNsdmVydGFsdFxj fPOlYDI9VEIySZUpKNRi VBQ6SJTbBqEijsNxJPjo bGJyZHJiXGJyZHJzXGJy SIW8BMBxTqNgltExCAze bGJyZHJsXGJyZHJzXGJy QJM7XYHxVrJmapYuCBld bGJyZHJyXGJyZHJzXGJy JLK0FWTsZoIvvtPgIIre bHBhZHQxMFxjbHBhZGZ0 O7cqwZKzKGJlMMxxbLFb XMNtL0qfhASnUNrsUACz cGFkZmwzXGNscGFkYjBc I2lsGGZyRrSdJ1NcyEb8 OvYtJDEmkgIdhS78Zrdn u1KuSGYpRXU4TLplKZgp bFxwbGFpblxmMFxmczI0 XHBsYWluXGYxXGZzMjBc bGFuZzEwMzNcaGljaFxm ETcpUuYiWHZjBUkxY3sv KdRjT7VrOAUzJaBeWI3v IgU2RGHjINI2XQU1GPAZ OPVwWFTCE5RFBfpyHQLF P7EerPscaZ7jUwJzJiKa XHgxCX7gIYOlB2eeuWMw GPZhZTYcP5xxCjMvlF2a aFxmMVxjZjJcZnMyMFxs dHJjaFxjZWxsXHBhcmRc vS32Huaas9SwPCPyABZ0 MFxzMFxxbFxwbGFpblxm DQmdwtE4BTAuPJvlOGNx XGZzMjBcbGFuZzEwMzNc aGljaFxmMVxkYmNoXGYx JVlnW0dsUyTtH2DaPGFz MjAgMTAvMjUvMjAyMVxw bGFpblxmMVxmczIwXGxh upvmHJLzGHluI2qgXrYt IYKlyVzqPUtla0TqKIZg PASiEsxynmTwDCv7dtHb XGNlbGxccGFyZFxpbnRi uFowt3RpmrLudJwuIGRn XHFsXHBsYWluXGYwXGZz ZpKcoAacmB7mBvQxVqGr BJamHG8rKYAaI3anzJSb SWAcCGKhP8cuTnInuS0z aFxmMVxjZjJcZnMyMCAx MB5hBg3eYBRbEYEjRFus XGYxXGZzMjBcbGFuZzEw MzNcaGljaFxmMVxkYmNo LUNvVYmjK7lnUhXbH7Nx BOAdBhBicCHmE0mtB0Rd dBbshfQdxIifd4byhUHj BDdhl2ZmzmJerLlqGINv XHFsXHBsYWluXGYwXGZz PpWsnLmnhE7kBdZyNkMx DCagYK1lNQBbT6pnlCVx MEVcCBIvI9toHfZphG6p aFxmMVxmczIwXHBhcn0= Addendum 1 (test code = v0unbLFsJUUatTE1QhHv 37) FKQiw3bxp2RxbEMpoMJb MRxbbUDxlwWjio29mJL4 rL08YL7xVVFlNcL7TYWd dtU1Zxq7YPAeTGGszXYy V163j8kyu6idvmEmwTS6 kGvoMPLyrrxaQgU0QQnj YBHfvdyySTx6ICixEFVs bCG8QESdbDMjV6ClSKAr XX1xwdh5HJG9XPelFPMq XhO5QDSmlHVoNZMfjOca TRvbn096MBY9JxOwVZFj fiGjsOhcrH8jDsNgPZPY PHJmzNmxcvFmOH8bvCOu lMGrOQKqH8KhzoFyOD0k KZBqAnPhYvVfTjGsZZ22 iUBgGSOyEMGeHJMprG1m ZcphRyK0AALcDAY2NSIb GLXRLFWkWMEMV6VSKMMv WNXYEvuyX49wqSPhiZPi MV5pTUNvZfA3YqRqYvRy XHBhclxwYXIgRGVlcGVy XAuolkBafuZeApKbdP9y gaCkHkJ1RREfCVU6DRUv IHdlcmUgZXhhbWluZWQu CWGsBPBerbteoB7etESv jCTqrz6erOLmnsWjPWhj wrK7slLaVH6uIIHsLTDb cn0= Diagnosis (test code = c3snjUDzLZWdiOK1HgIc 34) AWOzq9osu0YctKPpcBNk UAtjdFGhfmUrja42pYZ5 yK73TU6qRBQeRwE1DIRr nyD6Rcr2PBSjBHAeiZDe M212g6mma4uqprOryQO2 PRXtGVBxI5LbTN8bLRYh jJVdJ66xdQGeUFX2UCDk CKXprSOxGVJdOOK5QUIy wRJsQ3ayCHKqLA3bgsft LGxiGTrsKHLoyQL0RFUs rIOgV9VrPZPtIJszJKMo gro6GwPkSz6naOZaqKzy MFxwYXJkXHBsYWluXGZz MyWiN5OcOD22cOCsTYUf KDIxOklTMTUzOCwgNiBT Afk4TNCowtblGaGiiEZh XGxpNzIwXGxpbjcyMCBM ADL8mxokHOQfU4e2JMIs hMIbnv9pXZbiXobqrXZ9 IChBKTpccGFyXGxpMTQ0 LPcuyU7bDJZjJYVYALZG Q4LNKUCWAEzuT5QTR8hS J23MXHJdoYSxvAJcj8Se XNDzauTtkpVjq0dccavx FIEqrYy9CtEpkCfpYyWu DPRlmfMMXXS3weqiQYxw EpUaSDP4dOMdf0pxGBIt sW7wi6arJUXhSayoBKOr rNsmQOReZAqddmM1KWQp D6R0BA1oqQLuvQJxk6Rb FPfthAmwF3mxm03tFsZs ylQiUL6hYPOhg59hCT9h E5U4zEEbATEbfvG4dZ8j gserRTLijSg2SeHdqYks CtUuLCBdtsXICTN2boib SOfsNxJnAbItn0Xgss7o GFywV39oMIldErbllEZ4 IChDKTpccGFyXGxpMTQ0 FAhbiE2vNYKaSQNvwFKe e0HnZZ80I40nOMDadsIr fXjwt0Tip9DcuESzryat E8sjofHzLS2tV0H0uFQn XTOebfH8sQ0zldhfTGUu nXDvFYVmcqHnU28MT6HY TlxwYXJ9 Double Reamer Operator(s) (test code a7hqpJNqWTYriOT5GkNj = 9863) CILnk3cok2UqcVQisVVj MBfveVKepcOdna37dAQ9 qA97CX9uYUTpRjO0LOYj zwM1Lfr0KNGtVELntWKz U719u4hwa9ppwoFmxIB0 qZrcOMRvopnnPuP3RBpd QDWdvdtpECj3SCvhVULn lWH0TTQsoDNvL1ZgXAEr EB2spev3JDP5WCxdPCRn KoZ6JWHwdIOiDKLafSfu TShyr581NVT3UkXcMEPe ubGfsFuqtE4iPwSeUIFN xw9sBVghmEMvmWOmK3fy bGlhbXMgaGFzIHJldmll i5MtDMZrhiTfGXUncdUg H54rA6Lrqv3twYBjfV== Biomarker Block(s) (test u1gyrUJpAKKyeON3JnOn code = 9841) XRZed2nac0DyePMirFTd UPfwaDCxbsJpyu91zVO5 iV54SN2pUAJmSrI0YOSr wkV1Btc2BBJmJAHaqTCa B942c9odi2rgnxQiaOU2 gLtcFWWpzkvvNrS1AAhq YUVnwnizBGm0VLymEXRn jWN2CBRkgOZxI8ClLDLq GM7aphy1ONT4SXnlYSWo GbT4XDIhpEKcSOVetSff GMzyn411IVY6SuScRHKd asDexOkydT1zKhVkISTH OiBBXHBhciBOOiBDXHBh cn0= Disclaimer (test code = o8kfmVMrQSIxkGVoAfSt 9844) WZQrRFWha3kqXABnbQPl ZzEwMzNcZnRuYmpcdWMx TNCpSjRxo1tyf599qIXf k6thXURiIwN1xBGjQECx zXQhJ458ZMZqVXtui0np u7LuNHDjpSMmm0B6OJUI zuovyXy7jRpoP47sa4G5 YofvV6ynBLHdGXTlZ9Dj UK4mETUwHwt2YWD0SSL1 JMWxOKXgI0LoIZ9nMUUq tSFwZBx7c1ruyGaeZOQo WFQ7k7byQNatxaLmOC8b cv6lzOv7y5itdjAsNNFj OYQpxCRJBHCoP0WeoWfr Vm9ssTl2uYafEiiaGLN4 Hpj4XJ5cpb79qfu1sArd SQPvtdyjDzI2EJnbBFSm vxitCFs5JPreDZSqhFV9 YZIwgGSnY3UuJZRrXP9u tuz4BJL9QAceBVCbGqW2 NDBcaGVhZGVyeTcyMFxm f188TWD9RiTeUX1pD8Qz w4C8yB4ntVNhASGetNHk QwFxBRPcya8cxFXmVTsz u9PwLRO0buE5rUGziSSq CATrUH88Dslom6NiZghv IYE3AHDhbfWlw8Vby2pg AvKhtcEdX9uiN6MlRLKj CYRtAUQnCwNpbrNdk3Ah m3CnlAWhsVp6l2jvDVUs GNVyzCsod0lfKJA6RNNb T9Q1sDIfj0geHNttBXFo aQU5iiU9QSGucJRkI7Kp wO5zSLSdDH2rjhb2p2fc IXB6JJlwNAVvClQ1wnM8 NDBcaGVhZGVyeTcyMFxm t720DSF5NhZdNXSxh9Sm W5QhyWoeW33odNhwP80q WDRusJgwgV3dqRzjgH9t ZjBcZnMyNFxxbFxwbGFp vywhKFvfvfN1ZDyjphph BSUmXEfuN2rrRhPhZSNb nKtfIAcqs1UwEDSkHIIv XpihjpT6WSVFs77oKRVp p5OaCYWqmP5naGKzBCry iwRscGB0ZUvjvvXdSnWp zdMkMVClqK7dJTLeLU4j RJEiztQfat9yhsSzQNZw GJYeD1YtjvazcGtveiGw JCPqfj1znlTmJYO3HMDN YL6QQVJkAVOsh63xOYZv jCmzpW1hyAIakoCaGCUy y8XisT0zlZIGBMAwA2iw SY8wWPnsa8CzwSNpeAQa oNY3VRFft5GuRcDahgRf bPFmmFNpI1ZhaWyzS5mx OMEfYDWhaxOdxWEan0Jd EWIbzAL4aUCzYC0PKrPG c74eYEQvTFAKliEnSUBu pZlltRI5zbR9mW5aZnGG ZiBhcHBsaWNhYmxlLCBj h408af3hjkY3RPPlXUEt rsciy0MsJCMcROPetD39 KLOrSGPkvc2eibktxRWg brYhY4Nyedz8xD9uNGBs YWluXGYxXGZzMjJcbGFu ZzEwMzNcaGljaFxmMVxk SuWoNGVuUGpsN3meGqLc ZnMyMlxwYXJ9 [facility]MS COVID-19 (MAURA-CoV-2) PCR [id number] 01:46:37 Test Item Value Reference Interpretation Comments Range COVID19 SARS Pre-Out of OR Procedure Indication (test code = 70695) COVID19 SARS Result Not Detected Not Detected (test code = 31069-4) COVID19 SARS SARS-CoV-2 NOT Detected. Interpretation (test Reference Range: Not code = 73311) Detected Methodology: The [employer] RealTime SARS-CoV-2 assay is a qualitative real-time reverse out of school hours care worker polymerase chain reaction (furnace and wash equipment operator-PCR) test to detect RNA from SARS-CoV-2 in nasal, nasopharyngeal and oropharyngeal swabs from patients with signs and symptoms of infection who are suspected of COVID-19 by their health care provider. The [employer] RealTime SARS-CoV-2 performed on the [employer] m2000 System is a dual target assay with [...] sole basis for patient management decisions. The [facility] RealTime SARS-CoV-2 assay is for in vitro diagnostic use under FDA Emergency Use Authorization only. Testing is limited to laboratories certified under the Clinical Laboratory Improvement Amendments of 1988 (CLIA), 42U.S.C. 263a, to perform high complexity tests. The Test was performed by the CLIA-certified, high-complexity Molecular Diagnostics Laboratory (MDL) at [facility] under the Food and Drug Administration (FDA) s Emergency Use Authorization. Factsheet for patients: https://www.[employer] Network[employer]erson.org/ AbbottFactSheetPatientsFact sheet for healthcare providers: https://www.[employer] Sho[employer] Networkndval[facility].org/ AbbottFactSheetHCP Test performed by:The [facility] [address] [place] [address] MD DorantesGlucose, [id number] 18:55:04 Test Item Value Reference Range Interpretation Comments Glucose Random 136 mg/dL 70-199 Effective 12/03 12/17, the (test code = 9360) glucose r eference intervals have been updated based o n [employer] rommel delines (Standards of [...] Not fasting PEDRO LUIS) MD DorantesVitamin D [id number] 18:49:59 Test Item Value Reference Range Interpretation Comments Vitamin D 25 OH (test 42 ng/mL 30-100 Refere nce Range: code = 8018) Deficiency: <10 ng/mLInsuff iciency: 10-29 ng/mLSufficienc y: 30-100 ng/mLPotential toxicity: >10 0 ng/mL MD DorantesTMP HCV Ab Path [id number] 12:33:38 Test Item Value Reference Range Interpretation Comments HCV Ab Path There is NO Interp (test serologic evidence code = 8923) of Hepatitis C M AYRIN virus antibody. DELFINO FERNANDEZ,Dictated by: RUFINO FERNANDEZ,Dictated Date/Time: 05.04.2021 6:33 AM COMMERCIAL TRAILER TRUCK DRIVER Transcrib ed Date/Time: 05.04.2021 6:33 AM CSTElectronical ly Signed By: JOSEPHINE IN DELFINO FERNANDEZ, on 05.04.2021 6:33 AM C MD DorantesHepatitis C Virus [id number] 05:13:47 Test Item Value Reference Range Interpretation [...] the results.Perform ed at:[facility] [id number] [place] [address], [place], [place] [address] MD [id number] 15:50:39 Test Item Value Reference Range Interpretation Comments TSH (test code = 3.71 See_Comment [Automated message] The 8972) system which ge nerated this result transmit mary reference range : 0.27 - 4.20 mcunit/mL. The reference range was not used to interpr et this result as shavon l/abnormal. [facility] [place] [id number] 15:50:30 Test Item Value Reference Range Interpretation Comments T4 Free (test code = 7502) 1.46 ng/dL 0.93-1.70 [facility] [id number] 12:58:27 Test Item Value Reference Range Interpretation Comments POC Crea (test 1.2 mg/dL 0.6-1.3 Medications, code = 38926-7) especially hydroxyurea or supplements, han ch as ascorbate, can interfere with test results causing a falsely and significantly h igher result than exp ected. If a problem is suspected with a patient's resul t, a sample should b e [facility] sting. Method descript ion: The i-STAT is a n analyzer used f or in vitro quantific ation of various anal ytes in whole blood. The device uses a s lindsey disposable cart ridge which contains microfabricated sensors, a calibration che Bio[employer]ov[employer]on, fluidics system , and a waste chamber . Each test cartridge contains chemic ally sensitive biose nsors on a [employer] ip that are config ured to perform spec ific tests. The microfabricated sensors measure analyte concent ration by an electroch emical assay. POC eGFR-AA (test 70 See_Comment Normal eGF R >= 60 code = 94830-4) mL/min/1.73 m2 The eGFR is calcula mary [...] lysis) [Automated mes vasquez] The system whic h generated this result transmitted ref erence range: >=60 mL/min/1.73 m2. The reference range was not used to int erpret this result as normal/abnormal . POC eGFR-JOSELITO 60 See_Comment Normal eGFR >= 60 (test code = mL/min/1.73 m2 The 66014-5) eGFR is calcula mary using the CKD-E [...] eve lysis) [Automated mes vasquez] The system INTTRA generated this result transmitted ref erence range: >=60 mL/min/1.73 m2. The reference range was not used to int erpret this result as normal/abnormal . POC Clean Dev Yes (test code = 6672) Performing Lab Radiology [facility] Radiology OP [facility] (test code = [facility] [address]) [facility], [address], [place], [place] [address]; Point of Care L ab Director: MD MD Jose E Bedoya
[2021-09-05] MEDS ORDERED: METHYLPREDNISOLONE 125 MG INJ ONE (09:25)
[2021-09-05] MEDS ORDERED: NA CHLORIDE 0.9% 1,000 ML ONE (09:26)
[2021-09-05] MEDS ORDERED: LEVALBUTEROL 1.25 MG/3 ML NEB ONE (09:26)
[2021-09-05 09:31] LABS: Absolute Lymphocytes (CBC) 0.4 K/uL (0.7-4.9); Hematocrit 30.2 % (39.6-49.0); Lymphocytes % 8.6 % (15.3-44.8); MPV 7.8 fL (7.6-11.3); RBC Red Blood Cell Count 3.63 M/uL (4.33-5.43)
[2021-09-05 09:35] LABS: Protime INR 1.16
[2021-09-05 09:50] LABS: BUN Blood Urea Nitrogen 12 mg/dL (7-18); Bicarbonate 33 mmol/L (21-32); Glucose Level 136 mg/dL (74-106); NT PRO-BNP 463 pg/mL (<125); Potassium 3.6 mmol/L (3.5-5.1); Sodium Level 135 mmol/L (136-145)
--- NOTE | 2021-09-05 10:02 | RAD REPORT ---
EXAM DESCRIPTION: RAD - Chest Single View - 09/05/2021 9:33 am CLINICAL HISTORY: recent pneumonia, COPD;Dyspnea Chest pain. COMPARISON: Chest Single View dated 07/15/2021; Chest Single View dated 07/15/2021; Chest Pa And Lat ( 2 Views) dated 03/24/2021; Chest Pa And Lat (2 Views) dated 06/10/2018 FINDINGS: Portable technique limits examination quality. The lungs are grossly clear. The heart is normal in size. No displaced fractures. IMPRESSION: No acute intrathoracic process suspected.
--- NOTE | 2021-09-05 10:16 | RAD REPORT ---
EXAM DESCRIPTION: CT - Chest For Pe Angio - 09/05/2021 10:05 am CLINICAL HISTORY: Chest pain. DYSPNEA COMPARISON: Lung Cancer Screening CT W/O dated 07/29/2019 TECHNIQUE: CT angiogram of the pulmonary arteries was performed with MIP. All CT scans are performed using dose optimization technique as appropriate and may include automated exposure control or mA/KV adjustment according to patient size. FINDINGS: No evidence of pulmonary thromboembolism. No acute aortic finding demonstrated. Emphysematous changes are present with a small area of infiltrate in the posterior left lung base, gomez spicious for pneumonia. No significant pericardial or pleural fluid. No concerning bony finding. IMPRESSION: No evidence of pulmonary thromboembolism. Small developing pneumonia posterior left lung base.
--- NOTE | 2021-09-05 10:50 | ER ---
Nurse's Notes [facility] Name[facility] Roland Lam Age: 71 yrs Sex: Male : 1950 Arrival Date: 09/05/2021 Time: 09:01 Bed 4 Private MD: Diagnosis: COPD/ Chronic obstructive pulmonary disease with (acute) exacerbation;Dehydration Presentation: 09/05 09:01 Chief complaint: EMS states: SOB X 2 days, hx of throat cancer and COPD, was recently iw d/c from [facility], was diagnosed pneumonia, pt was 98% on RA with wheezing throughout. Coronavirus screen: Client presents with at least one sign or symptom that may indicate coronavirus-19. Ebola Screen: Patient negative for fever greater than or equal to 101.5 degrees Fahrenheit, and additional compatible Ebola Virus Disease symptoms Patient denies exposure to infectious person. Patient denies travel to an Ebola-affected area in the 21 days before illness onset. No symptoms or risks identified at this time. Risk Assessment: Do you want to hurt yourself or someone else? Patient reports no desire to harm self or others. Onset of symptoms was September 03, 2021. 09:01 Method Of Arrival: EMS: [facility] iw 09:01 Acuity: HOWARD 3 iw 11:10 Initial Sepsis Screen: Does the patient meet any 2 criteria? No. Patient's initial ll1 sepsis screen is negative. Does the patient have a suspected source of infection? Yes: Productive cough/pneumonia. Triage Assessment: 09:32 General: Appears uncomfortable, ill, Behavior is cooperative, appropriate for age. ll1 Pain: Denies pain. Respiratory: Reports shortness of breath at rest on exertion Airway is patent Trachea midline Respiratory effort is even, unlabored, Respiratory pattern is regular, symmetrical, Onset: The symptoms/episode began/occurred 3 days ago, the patient has moderate shortness of breath. Historical: - Allergies: 09:04 No Known Allergies; iw - PMHx: 09:03 CAD; COPD; Diabetes - NIDDM; High Cholesterol; THROAT CA; iw - Immunization history:: Adult Immunizations up to date. - Social history:: Smoking status: Patient/guardian denies using tobacco. - Family history:: not pertinent. - Hospitalizations: : Patient was recently seen at. Screenin:33 Abuse screen: Denies threats or abuse. Nutritional screening: No deficits noted. ll1 Tuberculosis screening: No symptoms or risk factors identified. Fall Risk IV access (20 points). Gait- Weak (10 pts.). Total Arnold Fall Scale indicates Low Risk Score (25-44 pts). Fall prevention measures have been instituted. Side Rails Up X 2 Frequent Obs/Assesments occuring As available Patient and Family Educated on Fall Prevention Program and strategies. Assessment: 09:33 Reassessment: No changes from previously documented assessment. Patient and/or family ll1 updated on plan of care and expected duration. Pain level reassessed. Patient is alert, oriented x 3, equal unlabored respirations, skin warm/dry/pink. Cardiovascular: Rhythm is regular. Respiratory: Airway is patent Breath sounds are diminished bilaterally. 10:30 Reassessment: No changes from previously documented assessment. Patient and/or family ll1 updated on plan of care and expected duration. Pain level reassessed. Patient is alert, oriented x 3, equal unlabored respirations, skin warm/dry/pink. 11:10 Reassessment: No changes from previously documented assessment. Patient and/or family ll1 updated on plan of care and expected duration. Pain level reassessed. Patient states feeling better. Vital Signs: 09:31 BP 158 / 65; Pulse 89; Resp 19; Temp 97.3; Pulse Ox 94% on R/A; ll1 10:36 BP 183 / 67; Pulse 88; Resp 18; Pulse Ox 98% on R/A; ll1 11:09 BP 165 / 77; Pulse 92; Resp 18; Pulse Ox 95% on R/A; ll1 ED Course: 09:01 Patient arrived in ED. iw 09:03 Triage completed. iw 09:03 Jair Fletcher MD is Attending Physician. rn 09:03 Arm band placed on. iw 09:06 Skip Polk, KWAN is Primary Nurse. ll1 09:15 Inserted saline lock: 22 gauge in left antecubital area, using aseptic technique. Blood ll1 collected. 09:34 Patient has correct armband on for positive identification. Bed in low position. Call ll1 light in reach. Side rails up X 1. monitor tech on. Pulse ox on. NIBP on. 09:35 XRAY CXR (1 view) In Process Unspecified. EDMS 09:36 SARS-COV-2 RT PCR (Document "Date of Onset" if Symptomatic) Sent. [facility] 09:36 COVID swab sent to lab. 5 09:45 EKG completed in triage. Results shown to . 3 10:08 CT Chest For PE Angio In Process Unspecified. EDMS 11:10 No provider procedures requiring assistance completed. IV discontinued, intact, ll1 bleeding controlled, No redness/swelling at site. Pressure dressing applied. Administered Medications: 09:30 Drug: Xopenex (levalbuterol) (3) 1.25 mg Route: Inhalation; 1 10:36 Follow up: Response: No adverse reaction 1 09:30 Drug: NS 0.9% 1000 ml Route: IV; Rate: 1000 ml; Site: left antecubital; 1 11:08 Follow up: Response: No adverse reaction; IV Status: Completed infusion; IV Intake: ll1 1000ml 09:31 Drug: SOLU-Medrol (methylPrednisoLONE) 125 mg Route: IVP; Site: left antecubital; 1 10:16 Follow up: Response: No adverse reaction; RASS: Alert and Calm (0) [facility] Intake: 11:08 IV: 1000ml; Total: 1000ml. 1 Outcome: 10:49 Discharge ordered by . rn 11:10 Discharged to home ambulatory. 1 11:10 Condition: stable 11:10 Discharge instructions given to patient, family, Instructed on discharge instructions, follow up and referral plans. medication usage, Demonstrated understanding of instructions, follow-up care, medications, Prescriptions given X 3. 11:11 Patient left the ED. 1 Signatures: Dispatcher [employer] Shana Correa RN KWAN Jair Fletcher MD MD rn Martinez, Susan [facility] Skip Polk RN RN [facility] Milana Whitt [facility]
--- NOTE | 2021-09-05 10:50 | EDPHYS ---
Physician Documentation [facility] Name: Roland Lam Age: 71 yrs Sex: Male : 1950 Arrival Date: 09/05/2021 Time: 09:01 Bed 4 Private MD: ED Physician Jair Fletcher HPI: 09/05 09:48 This 71 yrs old Male presents to ER via EMS with complaints of Shortness Of Breath. rn 09:48 The patient has shortness of breath at rest, with light activity. Onset: The rn symptoms/episode began/occurred 2 day(s) ago. Duration: The symptoms are intermittent. The patient's shortness of breath is aggravated by nothing, is alleviated by sitting up. The patient's shortness of breath is alleviated by application of supplemental oxygen. Associated signs and symptoms: Pertinent positives: non-productive cough, Pertinent negatives: fever, hemoptysis. Severity of symptoms: At their worst the symptoms were moderate in the emergency department the symptoms have improved. The patient has experienced similar episodes in the past. The patient has been recently seen by a physician:. Reports sob for last 2 days, no fever, no fall or trauma, + recent admission to [facility] for pneumonia, sent home with abx, feels like got better from that. No acute changes in terms of swallowing or breathing at neck/pharyngeal level, he feels sob from lungs. Reports taking PO and hoping feeding tube will be removed soon. No abd pain/vomiting/diarrhea.. Historical: - Allergies: 09:04 No Known Allergies; iw - PMHx: 09:03 CAD; COPD; Diabetes - NIDDM; High Cholesterol; THROAT CA; iw - Immunization history:: Adult Immunizations up to date. - Social history:: Smoking status: Patient/guardian denies using tobacco. - Family history:: not pertinent. - Hospitalizations: : Patient was recently seen at. ROS: 09:48 Constitutional: Negative for fever, chills Eyes: Negative for injury, pain, redness, rn and discharge, Neck: Negative for injury, pain, and swelling, Cardiovascular: Negative for chest pain, palpitations, and edema, Respiratory: + sob and cough Abdomen/GI: Negative for abdominal pain, nausea, vomiting, diarrhea, and constipation, Back: Negative for injury and pain, : Negative for injury, bleeding, discharge, and swelling, MS/Extremity: Negative for injury and deformity, Skin: Negative for injury, rash, and discoloration, Neuro: Negative for headache, numbness, tingling, and seizure. Exam: 09:48 Constitutional: Thin male, mile tachypnea Head/Face: Normocephalic, atraumatic. Eyes: rn Periorbital areas with no swelling, redness, or edema. ENT: NO stridor, + NG tube secured to right side of face, + dry MM Neck: Trachea midline Cardiovascular: Regular rate and rhythm. No pulse deficits. Respiratory: + mild tachypnea with diminished breath sounds bilaterally, faint wheezing, no retractions. Abdomen/GI: soft, non-tender, non-distended Skin: Warm, dry MS/ Extremity: Pulses equal, no cyanosis. Neuro: Awake and alert, GCS 15 11:08 ECG was reviewed by the Attending Physician. rn Vital Signs: 09:31 BP 158 / 65; Pulse 89; Resp 19; Temp 97.3; Pulse Ox 94% on R/A; ll1 10:36 BP 183 / 67; Pulse 88; Resp 18; Pulse Ox 98% on R/A; ll1 11:09 BP 165 / 77; Pulse 92; Resp 18; Pulse Ox 95% on R/A; ll1 MDM: 09:03 Patient medically screened. rn 10:45 Differential diagnosis: Anxiety Reaction Chronic Obstructive Pulmonary Disease rn Myocardial Infarction pneumonia, Pneumothorax pulmonary edema, Pulmonary Embolism. Data reviewed: vital signs, nurses notes, lab test result(s), EKG, radiologic studies, CT scan, plain films, and as a result, I will discharge patient. Data interpreted: Pulse oximetry: on room air is 98 %. Interpretation: normal. Counseling: I had a detailed discussion with the patient and/or guardian regarding: the historical points, exam findings, and any diagnostic results supporting the discharge/admit diagnosis, lab results, radiology results, the need for outpatient follow up, to return to the emergency department if symptoms worsen or persist or if there are any questions or concerns that arise at home. Response to treatment: the patient's symptoms have markedly improved after treatment, and as a result, I will discharge patient. Special discussion: I discussed with the patient/guardian in detail that at this point there is no indication for admission to the hospital. It is understood, however, that if the symptoms persist or worsen the patient needs to return immediately for re-evaluation. ED course: Pt markedly improved, no oxygen requirement, CXR neg, CT neg for PE, shows small area, unclear if residual from recent pneumonia or new pneumonia, procal neg, WBC normal. Had discussion with family and patient, states feels so much better, wants to go home, will cover with abx given unclear if residual or new infection, unlikely new infection with recent admission for pneumonia and abx. Return precautions given and understood.. 09/05 09:04 Order name: BMP; Complete Time: : rn 09/05 09:04 Order name: Blood Culture Adult (2) rn 09/05 09:04 Order name: CBC with Diff; Complete Time: : rn 09/05 09:04 Order name: NT PRO-BNP; Complete Time: : rn 09/05 09:04 Order name: PT-INR; Complete Time: : rn 09/05 09:04 Order name: Ptt, Activated; Complete Time: : rn 09/05 09:04 Order name: CT Chest For PE Angio; Complete Time: : rn 09/05 09:04 Order name: XRAY CXR (1 view); Complete Time: : rn 09/05 09:04 Order name: EKG; Complete Time: : rn 09/05 09:04 Order name: Procalcitonin; Complete Time: : rn 09/05 09:27 Order name: SARS-COV-2 RT PCR (Document "Date of Onset" if Symptomatic) iw 09/05 09:04 Order name: Cardiac monitoring; Complete Time: 09:20 rn 09/05 09:04 Order name: EKG - Nurse/Tech; Complete Time: 09:20 rn 09/05 09:04 Order name: IV Saline Lock; Complete Time: : rn 09/05 09:04 Order name: Labs collected and sent; Complete Time: : rn 09/05 09:04 Order name: O2 Per Protocol; Complete Time: :09/05 09:04 Order name: O2 Sat Monitoring; Complete Time: 09:06 rn EC:08 Rate is 92 beats/min. Rhythm is regular. QRS [place] is Normal. MD interval is normal. QRS rn interval is normal. QT interval is normal. No Q waves. T waves are Normal. No ST changes noted. Clinical impression: Normal ECG. Interpreted by me. Reviewed by me. Administered Medications: 09:30 Drug: Xopenex (levalbuterol) (3) 1.25 mg Route: Inhalation; ll1 10:36 Follow up: Response: No adverse reaction ll1 09:30 Drug: NS 0.9% 1000 ml Route: IV; Rate: 1000 ml; Site: left antecubital; ll1 11:08 Follow up: Response: No adverse reaction; IV Status: Completed infusion; IV Intake: ll1 1000ml 09:31 Drug: SOLU-Medrol (methylPrednisoLONE) 125 mg Route: IVP; Site: left antecubital; ll1 10:16 Follow up: Response: No adverse reaction; RASS: Alert and Calm (0) ll1 Disposition Summary: 09/05/21 10:49 Discharge Ordered Location: Home rn Problem: new rn Symptoms: have improved rn Condition: Stable rn Diagnosis - COPD/ Chronic obstructive pulmonary disease with (acute) exacerbation rn - Dehydration rn Followup: rn - With: Private Physician - When: As needed - Reason: Recheck today's complaints, Re-evaluation by your physician Discharge Instructions: - Discharge Summary Sheet rn - Dehydration, Adult rn - Chronic Obstructive Pulmonary Disease Exacerbation rn Forms: - Medication Reconciliation Form rn - Thank You Letter rn - Antibiotic statistics intern - Prescription Opioid Use rn Prescriptions: - Prednisone 20 mg Oral Tablet - take 3 tablets by ORAL route once daily for 5 days; 15 tablet; Refills: 0, rn Product Selection Permitted - albuterol sulfate 90 mcg/actuation Inhalation HFA aerosol inhaler - inhale 2 puff by INHALATION route every 4-6 hours; 1 Pump; Refills: 0, Product rn Selection Permitted - Zithromax Z-Keagan 250 mg Oral Tablet - take 1 tablet by ORAL route as directed for 5 days Day 1 - take two (2) tablets rn one time. Day 2, 3, 4 , 5 take one (1) tablet once daily.; 6 tablet; Refills: 0, Product Selection Permitted Signatures: Dispatcher [employer] Shana Correa RN RN iw Nieto, Roman, MD MD rn Lewis, Lynsay, RN RN ll1
[2021-09-05 11:17] VITALS: TEMP 97.3
[2021-09-05 11:19] VITALS: BP 165/77; O2SAT 95
--- NOTE | 2021-09-06 08:33 | EKG ---
Test Date: 2021-09-05 Test Time: 09:39:54 [employer]: JJ MEASUREMENT RESULTS: Intervals: Rate: 92 OR: 166 QRSD: 92 QT: 358 QTc: 442 [place]: P: 85 OR: 166 QRS: 88 T: 77 INTERPRETIVE STATEMENTS: Normal sinus rhythm Normal ECG Compared to ECG 06/10/2018 15:38:36 No significant changes Electronically Signed On 09-06-21 08:28:21 CDT by Kt German
== END 2021-09-05 11:11 | disposition home or self-care (01) ==
LOC: ER 09:00
DX: J44.1 Chronic obstructive pulmonary disease with (acute) exacerbation (principal); E86.0 Dehydration; Z85.819 Personal history of malignant neoplasm of unspecified site of lip, oral cavity, and pharynx; Z20.822 Contact with and (suspected) exposure to COVID-19
CPT/HCPCS: 96361; 93005; 87040 ×2; 85025; 80048; 36415; 85610; 85730; 84145; 83880; 71275; 71045; 96374; 99285; U0003; Q9967; J7030; J2930

== ENCOUNTER 2021-09-10 11:30 | Inpatient (IN) | payer OTHER ==
--- OUTSIDE RECORDS SUMMARY | 2021-09-10 11:38 | XMS REPORT | Clinical Summary ---
:1950 Author Organization [facility] MD [facility] Address [address] [place] [address] Care Team Providers Name Role Phone Olivia oCleman DO Unavailable Slava Canseco MD Primary Care Provider MD Thang Unavailable Samantha Polk MD Unavailable Nirmal Davenport RD Unavailable Laurie Maurer MANAGER TALENT MANAGEMENT Unavailable Hilario Lam MD Unavailable Joesph Payan MD Unavailable Allergies No known active allergies [...] 1.1 % twice daily. 1 dental [place] teeth creamIndications: with cream and Primary squamous [...] Take 1-2 240 tablet 0 Active ophen (Crabtree) 5 tablets by 2 mg-325 mg per [...] (COZAAR) 50 Take 100 mg by 0 06/05/ Discontinued mg tablet mouth daily. 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); Medical Oncology Anca H, MANAGER TALENT MANAGEMENT Dysphagia , oropharyngeal phase 09/06/2021 Hospital Encounter Speech Pathology Antonella De La Rosa led (Patient OUMAR Morris Request) Crista Connolly CCC-TIRE REBUILDER 09/06/2021 Documentation Speech Pathology Crista Connolly, DAHIANA-TIRE REBUILDER 09/06/2021 Documentation Speech Pathology Crista Connolly, [facility]-TIRE REBUILDER 09/05/2021 Nutrition Slava Witt MD Ruzensky, Debra A, ANDRÉS 09/05/2021 Telephone Camilla Morrissey, RD 09/02/2021 Telephone Radiation Rj, Oncology OUMAR Morris 09/01/2021 Telephone April Wylie Discharge Cal l RN 08/31/2021 Orders Only Gastroenterology Michael Lam , Hepatology & D., Nutrition 08/30/2021 Orders Only Speech Pathology Caprice Nolen Dysphagia, M, [facility]-TIRE REBUILDER oropharyngeal p hase (Primary Dx) 08/29/2021 Anesthesia Event Endoscopy Sara Deras, Zach Knox, KAREEN 08/29/2021 Surgery Endoscopy Michael Lam DIAGNOSTIC UPP VINCE Rich MD GASTROCABRERA Mcintosh ENDOSCOPY 08/26/2021 Prep for Surgery Gastroenterology Harman, Elizabeth, Iron de ficiency , Hepatology & ENGRAVER MACHINE anemia, not o therwise Nutrition specified (Prim tisha Dx) 08/25/2021 Hospital Encounter General Internal Vu, Hilario B, Chron ic obstructive pulmonary disease (Primary Dx); - Medicine MD Primary squamous cell carcinoma of laryn x; 08/31/2021 Alta Ferrell Type 2 diabete s mellitus without complication; MD Elza Anemia; Koffi, Iron deficiency anemia, not otherwise specified; Olegario Gamez MD Aspiration pneumonia Cintia Mancia MD Franco Vega, Maria, MD Rubio, David, MD Fortique, Carla, MD 08/25/2021 Ancillary Procedure Radiology Slava Canseco Aspirati on pneumonia; MD Nick Primary squamou s cell carcinoma of larynx 08/25/2021 Documentation Speech Pathology Sara Lim, CCC-TIRE REBUILDER 08/25/2021 Telephone Proton Therapy Wayne Castro RN 08/25/2021 Orders Only Proton Therapy Alexandra De La Rosa PA 08/25/2021 Orders Only Proton Therapy Davina Perez PA 08/25/2021 Orders Only Proton Therapy Chris, Primary squam ous cell OUMAR Rodriguez carcinoma of larynx (Primary Dx) 08/25/2021 Travel 08/23/2021 Telephone Proton Therapy Wayne Castro RN 08/22/2021 Hospital Encounter Speech Pathology Rj Prima ry squamous cell OUMAR Morris carcinoma of larynx Rebecca Brown, CCC-TIRE REBUILDER 08/22/2021 Orders Only Radiation Rj 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); Oncology OUMAR Morris Aspiration pneu monia 08/22/2021 Orders Only Head and Neck Erasto, Aspiration pne umonia (Primary Dx); Medical Oncology Anca Sullivan APN Primary s quamous cell carcinoma of larynx 08/22/2021 Travel 08/20/2021 Clinical Support Andres De La Rosa, Suspected C OVID-19 (Primary Dx); OUMAR Morris Primary squamous cell carcinoma of laryn x Margo Reyes, KWAN 08/20/2021 Travel 08/20/2021 Refill Proton Therapy Rj, [...] 08/08/2021 Documentation Head and Neck Clemons, Surgery [facility] 08/02/2021 Nutrition Nutrition Slava Canseco Primary squamou s cell MD Nick carcinoma of larynx Camilla Davenport RD 08/02/2021 Documentation Nutrition Adele Christensen 08/02/2021 Orders Only Dick Morrissey squamou s cell carcinoma of larynx (Primary [...] 07/25/2021 Documentation Head and Neck Clemons, Surgery [facility] 07/25/2021 Refill Proton Therapy Slava Canseco 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 Nick radiation 07/19/2021 Nutrition Slava Witt MD Ruzensky, Debra A, ANDRÉS 07/15/2021 Telephone Proton Therapy Wayne Castro RN 07/13/2021 Telemedicine Head and Neck Yumi Desir, Primary squa mous cell Medical Oncology carcinoma of larynx Anca Maurer APN 07/13/2021 Telephone Thoracic Erasto, Medicine Anca Sullivan MANAGER TALENT MANAGEMENT 07/13/2021 Orders Only Head and Neck Yumi Desir, Medical Oncology 07/12/2021 Orders Only Head and Neck Eliza Booth Primary squamo us cell Medical glazier apprentice carcinoma o f larynx (Primary Dx) 07/08/2021 Hospital Encounter GIM/Phase 1 Josette Vasquez, Primary squamous cell carcinoma of larynx (Primary Dx); - Syncope; 07/12/2021 Eugene, Hypokalemia; Madelni Hypomagnesemia; MD Maryse Pneumonia; Etchegaray-Yong Severe protei [...] Canseco MD 07/07/2021 Orders Only Proton Therapy Dick De La Rosaam ous cell OUMAR Morris carcinoma of la rynx (Primary Dx) 07/07/2021 Orders Only Radiation Slava Canseco Oncology MD Nick 07/07/2021 Travel 07/06/2021 Infusion Infusion Dick De La Rosaou s cell Services OUMAR Morris carcinoma of larynx Ballena, (Primary Dx) Ten Rivera, RN 07/06/2021 Nutrition Nutrition Slava Canseco MD Nancy, Maame Jamil RD 07/06/2021 Office Visit Head and Neck Slava [facility]seco [facility] Medical Oncology MD Nick carcinoma of [...] (Primary Dx) 07/06/2021 Orders Only Proton Therapy Tatyanamoira, Primary squam ous cell Wayne Singh RN [...] otherwise specified 07/01/2021 Documentation Speech Pathology Crista Connolly, CCC-TIRE REBUILDER 07/01/2021 Telephone Radiation Andring, Oncology Caprice Antonio [...] hyper tension 06/29/2021 Hospital Encounter Proton Therapy Pedro Cansecoy Nick, MD 06/29/2021 Hospital Encounter Proton Slava Landa MD 06/29/2021 Orders Only Proton Therapy Slava Canseco Primary squam ous cell carcinoma of larynx (Primary Dx); MD Nick Severe protein- calorie malnutrition, not otherwise specified 06/29/2021 Documentation Proton Therapy Maame Cruz, ANDRÉS 06/29/2021 Orders Only Radiation Rj, 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); Oncology OUMAR Morris Thick sputum; Constipation, n ot otherwise specified 06/29/2021 Travel 06/28/2021 Hospital Encounter Proton Slava Landa MD 06/28/2021 Travel 06/27/2021 Infusion Infusion Yumi [...] Dx) Candy, Murphy 06/24/2021 Hospital Encounter Proton Slava Landa MD 06/24/2021 Travel 06/24/2021 Orders Only Head and Neck Yumi Desir, Medical Oncology 06/23/2021 Hospital Encounter Proton Slava Landa MD 06/23/2021 Hospital Encounter Proton Slava Landa [...] Infusion Yumi Desir, Primary squamous cell Services MD carcinoma of larynx Panganiban, (Primary Dx) Sam Garzon RN 06/20/2021 Hospital Encounter Lab Yumi Desir, Primary squamous cell MD carcinoma of la rynx 06/20/2021 Travel 06/17/2021 Hospital Encounter Proton Therapy Slava Canseco MD 06/17/2021 Orders Only Head and Neck Alyse Polk Medical Oncology Denise Nuñez 06/17/2021 Orders Only Proton Therapy Rj Primary squam ous cell Alexandra, OUMAR carcinoma of la rynx (Primary Dx) 06/17/2021 Travel 06/16/2021 Hospital Encounter Proton Therapy Slava Canseco MD 06/16/2021 Travel 06/15/2021 Office Visit Head and Neck Slava Canseco Hypomagnesemia (Primary Dx); Medical Oncology MD Nick Primary squamous cell carcinoma of laryn x Erasto, Anca Sullivan, MANAGER TALENT MANAGEMENT 06/15/2021 Hospital Encounter Speech Pathology Ene Polk M, MD oropharyngeal phase Christy Chavez, [facility]-TIRE REBUILDER 06/15/2021 Hospital Encounter Proton Slava Landa MD 06/15/2021 Hospital Encounter Proton Slava Landa MD 06/15/2021 Documentation Proton Therapy Maame Cruz, ANDRÉS 06/15/2021 Orders Only Radiation Slava Canseco Oral mucositis due to Oncology MD Nick radiation (Prim tisha Dx) 06/15/2021 Orders Only Proton Therapy Dick Castro squam ous cell Wayne Singh RN carcinoma of l arynx (Primary Dx) 06/15/2021 Travel 06/14/2021 Hospital Encounter Proton Slava Landa MD 06/14/2021 Hospital Encounter Proton Therapy Slava Canseco MD 06/14/2021 Travel 06/13/2021 Hospital Encounter Infusion Yumi Desir, Primary squamous cell Services carcinoma of larynx Yeu Alaniz, (Primary Dx) RN 06/13/2021 Hospital Encounter Proton Therapy Slava Canseco MD 06/13/2021 Hospital Encounter Proton Slava Landa MD 06/13/2021 Hospital Encounter Lab Yumi Desir Primary squamous cell carcinoma of la rynx 06/13/2021 Orders Only Radiation Rj, 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); Oncology OUMAR Morris Essential hyper tension 06/13/2021 Orders Only Radiation Rj, 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); Oncology OUMAR Morris Thick sputum 06/13/2021 Travel 06/10/2021 Hospital Encounter Proton Slava Landa MD 06/10/2021 Travel 06/09/2021 Hospital Encounter Proton Therapy Slava Canseco MD 06/09/2021 Travel 06/08/2021 Hospital Encounter Proton Slava Landa MD 06/08/2021 Hospital Encounter Proton Therapy Slava Canseco MD 06/08/2021 Hospital Encounter Speech Pathology Rj, Prima ry squamous cell OUMAR Morris carcinoma of larynx Crista Connolly, CCC-TIRE REBUILDER 06/08/2021 Office Visit Head and Neck Yumi Desir, 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); Medical Oncology Swallowing painful; Serum creatinin e raised; Hypomagnesemia 06/08/2021 Documentation Proton Therapy Maame Cruz RD 06/08/2021 Travel 06/07/2021 Hospital Encounter Proton Therapy Slava Canseco MD 06/07/2021 Travel 06/06/2021 Hospital Encounter Proton [...] Travel 06/01/2021 Office Visit Head and Neck Maine, 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); Medical Oncology MD Brenda Encounter f or antineoplastic chemotherapy 06/01/2021 Hospital Encounter Proton Therapy Yue Stahl MD Lee, Anna, MD 06/01/2021 Hospital Encounter Proton Therapy Slava Canseco MD 06/01/2021 Travel 05/31/2021 Hospital Encounter Proton Therapy Slava Canseco MD 05/31/2021 Nutrition Nutrition Slava Canseco MD Nancy, Maame Jamil RD 05/31/2021 Hospital Encounter Proton Therapy Slava Canseco MD 05/31/2021 Travel 05/30/2021 Infusion Infusion Yumi Desir, Primary squam ous cell Services carcinoma of larynx Cole Rosenthal (Primary Dx) RN 05/30/2021 Hospital Encounter Proton Therapy Slava Canseco MD 05/30/2021 Hospital Encounter Lab Yumi Desir Primary squamous cell MD carcinoma of la rynx 05/30/2021 Travel 05/25/2021 Office Visit Head and Neck Yumi Desir, Primary squa mous cell Medical Oncology carcinoma o f larynx 05/25/2021 Hospital Encounter Proton Slava Landa MD 05/25/2021 Hospital Encounter Proton Slava Landa MD 05/25/2021 Orders Only Proton Therapy Rj Primary squam ous cell carcinoma of larynx (Primary Dx); OUMAR Morris 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; Radiation derma titis; Neuropathic farida n 05/25/2021 Travel 05/24/2021 Hospital Encounter Proton Therapy Slava Canseco MD 05/24/2021 Travel 05/23/2021 Hospital Encounter Proton Therapy Slava Canseco MD 05/23/2021 Infusion Infusion Yumi Desir Primary squam ous cell Services carcinoma of larynx Jacob, (Primary Dx) Roc Bertrand III, RN 05/23/2021 Hospital Encounter Lab Yumi Desir, Primary squamous cell MD carcinoma of la rynx 05/23/2021 Hospital Encounter Proton Therapy Slava Canseco MD 05/23/2021 Travel 05/22/2021 Hospital Encounter Proton Therapy Slava Canseco MD 05/22/2021 Documentation Radiation Caprice Nguyen Oncology MD Dulce 05/22/2021 Travel 05/19/2021 Nutrition Nutrition Slava Canseco MD Nancy, Maame Jamil RD 05/19/2021 Orders Only Head and Neck Ene Polk, Surgery MD Samantha oropharyngeal p hase (Primary Dx) 05/18/2021 Hospital Encounter Radiology Rj, Primary s quamous cell OUMAR Morris carcinoma of larynx Cady Gómez [facility]-TIRE REBUILDER 05/18/2021 Travel 05/16/2021 Hospital Encounter Proton Therapy Slava Canseco MD 05/16/2021 Orders Only Head and Neck Erasto, Medical Oncology Anca Sullivan APN 05/16/2021 Documentation Head and Neck Clemons, Surgery Huan H 05/12/2021 Documentation Radiation Slava Cnaseco Oncology MD Nick 05/12/2021 Multidisciplinary Visit Head and Neck Melita, Surgery OUMAR Lara 05/12/2021 Orders Only Head and Neck Yumi Desir, 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) 05/11/2021 Consult Head and Neck uYmi Desir, Primary squa mous cell carcinoma of [...] carcinoma of la rynx 05/11/2021 Clinical Support Anrdes De La Rosa, Encounter f or observation [...] (Primary Dx) 05/06/2021 Hospital Encounter Dental Oncology Med, Encoun ter for Elva, DDS observation for other suspected disea se ruled out 05/06/2021 Hospital Encounter Dental Oncology Med Primar y squamous cell carcinoma of larynx (Primary [...] 05/06/2021 Travel 05/05/2021 Orders Only Dental Oncology Tanyaibluis, Encounter esha Colin observation for other MD Vadim suspected [...] Encounter Lab Rj, Primary s quamous cell Alexandra, OUMAR carcinoma of la rynx 05/03/2021 Ancillary Procedure Radiology Rj, Primary squamous cell Alexandra, PA carcinoma of la rynx 05/03/2021 Travel 05/02/2021 Travel 05/01/2021 Orders Only Head and Neck Yumi Desir, 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) 04/26/2021 Orders Only Radiology Yesenia Simmons MD 04/26/2021 Orders Only Proton Therapy Rj, Primary squam ous cell Alexandra, OUMAR carcinoma of la rynx (Primary Dx) 04/22/2021 Ancillary Procedure Radiology Cancer 04/22/2021 Ancillary Procedure Radiology Cancer 04/22/2021 Ancillary Procedure Radiology Cancer 04/22/2021 Ancillary Procedure Radiology Cancer 04/22/2021 Ancillary Procedure Radiology Cancer 04/22/2021 Ancillary Procedure Radiology Cancer 04/20/2021 Lab Requisition Steve Munguia MD Xu, Ya, MD after 09/10/2020 Immunizations Name Administration Dates Next Due Moderna SARS-CoV-2 Booster Vaccination (50 mcg/0.25 04/16/20 21 mL) Moderna SARS-CoV-2 Vaccination 08/07/2020, 07/10/2020 Surgical History Surgery Date Site/Laterality Comments CHOLECYSTECTOMY FEMORAL ARTERY STENT Left Left leg [place] ESOPHAGOGASTRODUODENOSCOPY 08/29/2021 Esophagus/N/A Pr ocedure: DIAGNOSTIC TRANSORAL DIAGNOSTIC UPPER GASTR OINTESTINAL ENDOSCOPY; Surg jay: Michael Lam MD; Location: MAIN ENDOSCOPY; Serv ice: GASTROENTEROLOGY [place] COLONOSCOPY FLX DX W/COLLJ SPEC 08/29/2021 N/A [...] at Date Recorded Male 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 Job Start Date Occupation Industry Not on file Not on file Not on file Travel History Travel Start Travel End [place] 04/28/2021 05/01/2021 COVID-19 Exposure Response Date Recorded [...] Treatment Date Type Specialty Care Team Description 09/14/2021 Office Visit GastroenterologyMian Rob ert, MD [address] [place] [phone] Hepatology & Nutrition Brady Payan MD [address] [place] [phone] 09/20/2021 Appointment Lab Alexandra De La Rosa PA [address] [place] [address] [phone] (Wo rk) 09/20/2021 Appointment Audiology Slava Canseco MD [address] [place] [phone] Candy Churchill AuD [address] [place] [phone] 09/20/2021 Appointment Radiology Alexandra De La Rosa PA [address] [place] [address] [phone] (Wo rk) 09/21/2021 Office Visit Head and Neck Medical Jose Raul Christy MD Oncology [address] [place] [address] [phone] (Wo rk) 09/21/2021 Appointment Proton Therapy Slava Canseco MD [address] [place] [address] [phone] (Wo rk) 09/23/2021 Appointment Radiology Ene Polk MD [address] [place] [address] [phone] (Wo rk) 09/23/2021 Appointment Head and Neck Surgery Cipriano Polk MD [address] [place] [address] [phone] (Wo rk) 06/26/2022 Appointment Radiology Ene Polk MD [address] [place], [place] [phone] (Wo rk) Health Maintenance Due Date Last Done Comments COVID-19 Vaccination (3 - Moderna 05/14/2021 04/16/2021, , risk 4-dose series) 07/10/2020 Implants Implanted Type Area Disciplinary Hearing Officer Device Identifier Shelf Exp iration Model / [...] Routine 08/25/2021 4:47 R esults for this EXPLOSIVE TECHNICIAN PM CDT procedure are i n the [...] 07/12/2021 5:42 Resul ts for this PM PAVING BLOCK CUTTER procedure are i n the results section. CALCIUM LEVEL TOTAL Routine 07/12/2021 3:09 Resu lts for this PM PAVING BLOCK CUTTER procedure are i n the results section. .GLOMERULAR FILTRATION Routine 07/12/2021 3:09 R esults for this RATE PM PAVING BLOCK CUTTER procedure are i n the results section. SERUM CREATININE Routine 07/12/2021 3:09 Results for this PM PAVING BLOCK CUTTER procedure are i n the results section. ELECTROLYTE PANEL Routine 07/12/2021 3:09 Result s for this PM PAVING BLOCK CUTTER procedure are i n the results section. BLOOD UREA NITROGEN Routine 07/12/2021 3:09 Resu lts for this PM PAVING BLOCK CUTTER procedure are i n the results section. GLUCOSE LEVEL Routine 07/12/2021 3:09 Results fo r this PM PAVING BLOCK CUTTER procedure are i n the results section. PHOSPHORUS LEVEL Routine 07/12/2021 3:09 Results for this PM PAVING BLOCK CUTTER procedure are i n the results section. MAGNESIUM LEVEL Routine 07/12/2021 3:09 Results for this PM PAVING BLOCK CUTTER procedure are i n the results section. BASIC METABOLIC PANEL, Routine 07/12/2021 3:09 CALCIUM TOTAL PM PAVING BLOCK CUTTER POC GLUCOSE SCREEN Routine 07/12/2021 1:45 Resul ts for this PM PAVING BLOCK CUTTER procedure are i n the results section. POC GLUCOSE SCREEN Routine 07/12/2021 9:40 Resul ts for this AM PAVING BLOCK CUTTER procedure are i n the results section. MANUAL DIFFERENTIAL AM 07/12/2021 1:56 Resu lts for this AM PAVING BLOCK CUTTER procedure are i n the results section. Results CBC AM 07/12/2021 1:56 Results for this AM PAVING BLOCK CUTTER procedure are i n the results section. CALCIUM LEVEL TOTAL Routine 07/12/2021 1:56 Resu lts for this AM PAVING BLOCK CUTTER procedure are i n the results section. .GLOMERULAR FILTRATION Routine 07/12/2021 1:56 R esults for this RATE AM PAVING BLOCK CUTTER procedure are i n the results section. SERUM CREATININE Routine 07/12/2021 1:56 Results for this AM PAVING BLOCK CUTTER procedure are i n the results section. ELECTROLYTE PANEL Routine 07/12/2021 1:56 Result s for this AM PAVING BLOCK CUTTER procedure are i n the results section. BLOOD UREA NITROGEN Routine 07/12/2021 1:56 Resu lts for this AM PAVING BLOCK CUTTER procedure are i n the results section. GLUCOSE LEVEL Routine 07/12/2021 1:56 Results fo r this AM PAVING BLOCK CUTTER procedure are i n the results section. PHOSPHORUS LEVEL Routine 07/12/2021 1:56 Results for this AM PAVING BLOCK CUTTER procedure are i n the results section. MAGNESIUM LEVEL Routine 07/12/2021 1:56 Results for this AM PAVING BLOCK CUTTER procedure are i n the results section. BASIC METABOLIC PANEL, Routine 07/12/2021 1:56 CALCIUM TOTAL AM PAVING BLOCK CUTTER COMPLETE BLOOD COUNT W/ AM 07/12/2021 1:56 DIFFERENTIAL AM PAVING BLOCK CUTTER POC GLUCOSE SCREEN Routine 07/11/2021 10:09 Resul ts for this PM PAVING BLOCK CUTTER procedure are i n the results section. POC GLUCOSE SCREEN Routine 07/11/2021 8:52 Resul ts for this PM PAVING BLOCK CUTTER procedure are i n the results section. POC GLUCOSE SCREEN Routine 07/11/2021 4:27 Resul ts for this PM PAVING BLOCK CUTTER procedure are i n the results section. ECHOCARDIOGRAM 2D Routine 07/11/2021 4:16 Result s for this COMPLETE PM PAVING BLOCK CUTTER procedure are i n the results section. CALCIUM LEVEL TOTAL Routine 07/11/2021 2:33 Resu lts for this PM PAVING BLOCK CUTTER procedure are i n the results section. .GLOMERULAR FILTRATION Routine 07/11/2021 2:33 R esults for this RATE PM PAVING BLOCK CUTTER procedure are i n the results section. SERUM CREATININE Routine 07/11/2021 2:33 Results for this PM PAVING BLOCK CUTTER procedure are i n the results section. ELECTROLYTE PANEL Routine 07/11/2021 2:33 Result s for this PM PAVING BLOCK CUTTER procedure are i n the results section. BLOOD UREA NITROGEN Routine 07/11/2021 2:33 Resu lts for this PM PAVING BLOCK CUTTER procedure are i n the results section. GLUCOSE LEVEL Routine 07/11/2021 2:33 Results fo r this PM PAVING BLOCK CUTTER procedure are i n the results section. PHOSPHORUS LEVEL Routine 07/11/2021 2:33 Results for this PM PAVING BLOCK CUTTER procedure are i n the results section. MAGNESIUM LEVEL Routine 07/11/2021 2:33 Results for this PM PAVING BLOCK CUTTER procedure are i n the results section. BASIC METABOLIC PANEL, Routine 07/11/2021 2:33 CALCIUM TOTAL PM PAVING BLOCK CUTTER POC GLUCOSE SCREEN Routine 07/11/2021 12:33 Resul ts for this PM PAVING BLOCK CUTTER procedure are i n the results section. POC GLUCOSE SCREEN Routine 07/11/2021 8:52 Resul ts for this AM PAVING BLOCK CUTTER procedure are i n the results section. CALCIUM LEVEL TOTAL Routine 07/11/2021 2:00 Resu lts for this AM PAVING BLOCK CUTTER procedure are i n the results section. .GLOMERULAR FILTRATION Routine 07/11/2021 2:00 R esults for this RATE AM PAVING BLOCK CUTTER procedure are i n the results section. SERUM CREATININE Routine 07/11/2021 2:00 Results for this AM PAVING BLOCK CUTTER procedure are i n the results section. ELECTROLYTE PANEL Routine 07/11/2021 2:00 Result s for this AM PAVING BLOCK CUTTER procedure are i n the results section. BLOOD UREA NITROGEN Routine 07/11/2021 2:00 Resu lts for this AM PAVING BLOCK CUTTER procedure are i n the results section. GLUCOSE LEVEL Routine 07/11/2021 2:00 Results fo r this AM PAVING BLOCK CUTTER procedure are i n the results section. PHOSPHORUS LEVEL Routine 07/11/2021 2:00 Results for this AM PAVING BLOCK CUTTER procedure are i n the results section. MAGNESIUM LEVEL Routine 07/11/2021 2:00 Results for this AM PAVING BLOCK CUTTER procedure are i n the results section. BASIC METABOLIC PANEL, Routine 07/11/2021 2:00 CALCIUM TOTAL AM PAVING BLOCK CUTTER MANUAL DIFFERENTIAL AM 07/11/2021 1:46 Resu lts for this AM PAVING BLOCK CUTTER procedure are i n the results section. Results CBC AM 07/11/2021 1:46 Results for this AM PAVING BLOCK CUTTER procedure are i n the results section. COMPLETE BLOOD COUNT W/ AM 07/11/2021 1:46 DIFFERENTIAL AM PAVING BLOCK CUTTER EKG, 12-LEAD (PORTABLE) Routine 07/11/2021 EKG, 12-LEAD (PORTABLE) STAT 07/11/2021 POC GLUCOSE SCREEN Routine 07/10/2021 9:45 Resul ts for this PM PAVING BLOCK CUTTER procedure are i n the results section. POC GLUCOSE SCREEN Routine 07/10/2021 7:36 Resul ts for this PM PAVING BLOCK CUTTER procedure are i n the results section. POC GLUCOSE SCREEN Routine 07/10/2021 4:26 Resul ts for this PM PAVING BLOCK CUTTER procedure are i n the results section. CALCIUM LEVEL TOTAL Routine 07/10/2021 3:02 Resu lts for this PM PAVING BLOCK CUTTER procedure are i n the results section. .GLOMERULAR FILTRATION Routine 07/10/2021 3:02 R esults for this RATE PM PAVING BLOCK CUTTER procedure are i n the results section. SERUM CREATININE Routine 07/10/2021 3:02 Results for this PM PAVING BLOCK CUTTER procedure are i n the results section. ELECTROLYTE PANEL Routine 07/10/2021 3:02 Result s for this PM PAVING BLOCK CUTTER procedure are i n the results section. BLOOD UREA NITROGEN Routine 07/10/2021 3:02 Resu lts for this PM PAVING BLOCK CUTTER procedure are i n the results section. GLUCOSE LEVEL Routine 07/10/2021 3:02 Results fo r this PM PAVING BLOCK CUTTER procedure are i n the results section. PHOSPHORUS LEVEL Routine 07/10/2021 3:02 Results for this PM PAVING BLOCK CUTTER procedure are i n the results section. MAGNESIUM LEVEL Routine 07/10/2021 3:02 Results for this PM PAVING BLOCK CUTTER procedure are i n the results section. BASIC METABOLIC PANEL, Routine 07/10/2021 3:02 CALCIUM TOTAL PM PAVING BLOCK CUTTER POC GLUCOSE SCREEN Routine 07/10/2021 11:40 Resul ts for this [employer] procedure are i n the results section. MANUAL DIFFERENTIAL AM 07/10/2021 6:09 Resu lts for this [employer] procedure are i n the results section. Results CBC AM 07/10/2021 6:09 Results for this [employer] procedure are i n the results section. CALCIUM LEVEL TOTAL Routine 07/10/2021 6:09 Resu lts for this [employer] procedure are i n the results section. .GLOMERULAR FILTRATION Routine 07/10/2021 6:09 R esults for this RATE [employer] procedure are i n the results section. SERUM CREATININE Routine 07/10/2021 6:09 Results for this [employer] procedure are i n the results section. ELECTROLYTE PANEL Routine 07/10/2021 6:09 Result s for this [employer] procedure are i n the results section. BLOOD UREA NITROGEN Routine 07/10/2021 6:09 Resu lts for this [employer] procedure are i n the results section. GLUCOSE LEVEL Routine 07/10/2021 6:09 Results fo r this [employer] procedure are i n the results section. TROPONIN T AM 07/10/2021 6:09 Results for this [employer] procedure are i n the results section. PHOSPHORUS LEVEL Routine 07/10/2021 6:09 Results for this [employer] procedure are i n the results section. MAGNESIUM LEVEL Routine 07/10/2021 6:09 Results for this [employer] procedure are i n the results section. BASIC METABOLIC PANEL, Routine 07/10/2021 6:09 CALCIUM TOTAL [employer] COMPLETE BLOOD COUNT W/ AM 07/10/2021 6:09 DIFFERENTIAL [employer] POC GLUCOSE SCREEN Routine 07/09/2021 11:11 Resul ts for this [employer] procedure are i n the results section. BLOOD UREA NITROGEN STAT 07/09/2021 10:35 Resu lts for this [employer] procedure are i n the results section. CALCIUM IONIZED, VENOUS STAT 07/09/2021 10:35 Results for this [employer] procedure are i n the results section. .GLOMERULAR FILTRATION STAT 07/09/2021 10:35 R esults for this RATE [employer] procedure are i n the results section. SERUM CREATININE STAT 07/09/2021 10:35 Results for this [employer] procedure are i n the results section. ELECTROLYTE PANEL STAT 07/09/2021 10:35 Result s for this [employer] procedure are i n the results section. GLUCOSE LEVEL STAT 07/09/2021 10:35 Results fo r this [employer] procedure are i n the results section. TROPONIN T STAT 07/09/2021 10:35 Results for this [employer] procedure are i n the results section. PHOSPHORUS LEVEL STAT 07/09/2021 10:35 Results for this [employer] procedure are i n the results section. MAGNESIUM LEVEL STAT 07/09/2021 10:35 Results for this [employer] procedure are i n the results section. BASIC METABOLIC PANEL, STAT 07/09/2021 10:35 CALCIUM IONIZED [employer] LOWER RESPIRATORY Now 07/09/2021 5:33 Result s for this CULTURE W/ GRAM STAIN [employer] proced ure are in the results section. POC GLUCOSE SCREEN Routine 07/09/2021 4:30 Resul ts for this [employer] procedure are i n the results section. VASCULAR ACCESS Routine 07/09/2021 3:00 Results for this ULTRASOUND [employer] procedure are i n the results section. CALCIUM LEVEL TOTAL Routine 07/09/2021 1:45 Resu lts for this [employer] procedure are i n the results section. .GLOMERULAR FILTRATION Routine 07/09/2021 1:45 R esults for this RATE [employer] procedure are i n the results section. SERUM CREATININE Routine 07/09/2021 1:45 Results for this [employer] procedure are i n the results section. ELECTROLYTE PANEL Routine 07/09/2021 1:45 Result s for this [employer] procedure are i n the results section. BLOOD UREA NITROGEN Routine 07/09/2021 1:45 Resu lts for this [employer] procedure are i n the results section. GLUCOSE LEVEL Routine 07/09/2021 1:45 Results fo r this [employer] procedure are i n the results section. PHOSPHORUS LEVEL Routine 07/09/2021 1:45 Results for this [employer] procedure are i n the results section. MAGNESIUM LEVEL Routine 07/09/2021 1:45 Results for this [employer] procedure are i n the results section. BASIC METABOLIC PANEL, Routine 07/09/2021 1:45 CALCIUM TOTAL [employer] OSCILLATORY PEP Routine 07/09/2021 1:21 [employer] OSCILLATORY PEP Routine 07/09/2021 1:21 [employer] OSCILLATORY PEP Routine 07/09/2021 1:21 [employer] POC GLUCOSE SCREEN Routine 07/09/2021 12:42 Resul ts for this [employer] procedure are i n the results section. POC GLUCOSE SCREEN Routine 07/09/2021 8:56 Resul ts for this [employer] procedure are i n the results section. MANUAL DIFFERENTIAL AM 07/09/2021 6:28 Resu lts for this [employer] procedure are i n the results section. Results CBC AM 07/09/2021 6:28 Results for this [employer] procedure are i n the results section. CALCIUM LEVEL TOTAL AM 07/09/2021 6:28 Resu lts for this [employer] procedure are i n the results section. .GLOMERULAR FILTRATION AM 07/09/2021 6:28 R esults for this RATE [employer] procedure are i n the results section. SERUM CREATININE AM 07/09/2021 6:28 Results for this [employer] procedure are i n the results section. ELECTROLYTE PANEL AM 07/09/2021 6:28 Result s for this [employer] procedure are i n the results section. BLOOD UREA NITROGEN AM 07/09/2021 6:28 Resu lts for this [employer] procedure are i n the results section. GLUCOSE LEVEL AM 07/09/2021 6:28 Results fo r this [employer] procedure are i n the results section. PHOSPHORUS LEVEL AM 07/09/2021 6:28 Results for this [employer] procedure are i n the results section. MAGNESIUM LEVEL AM 07/09/2021 6:28 Results for this [employer] procedure are i n the results section. COMPLETE BLOOD COUNT W/ AM 07/09/2021 6:28 DIFFERENTIAL [employer] BASIC METABOLIC PANEL, AM 07/09/2021 6:28 CALCIUM TOTAL [employer] TROPONIN T Routine 07/09/2021 6:28 Results for this [employer] procedure are i n the results section. POC GLUCOSE SCREEN Routine 07/08/2021 10:08 Resul ts for this [employer] procedure are i n the results section. POC GLUCOSE SCREEN Routine 07/08/2021 5:49 Resul ts for this [employer] procedure are i n the results section. STREPTOCOCCAL URINE Routine 07/08/2021 5:17 Resu lts for this ANTIGEN PATH REVIEW [employer] procedur e are in the results section. LEGIONELLA URINE Routine 07/08/2021 5:17 Results for this ANTIGEN PATH REVIEW [employer] procedur e are in the results section. LEGIONELLA URINE Now 07/08/2021 5:17 Results for this ANTIGEN [employer] procedure are i n the results section. STREPTOCOCCUS Now 07/08/2021 5:17 Results fo r this PNEUMONIAE URINE [employer] procedure a re in ANTIGEN the results section. GENERAL LABORATORY ADD Now 07/08/2021 3:35 R esults for this ON TEST [employer] procedure are i n the results section. MRSA SCREENING CULTURE Now 07/08/2021 3:23 R esults for this [employer] procedure are i n the results section. CT CHEST PULMONARY Routine 07/08/2021 1:38 Resul ts for this EMBOLISM W CONTRAST [employer] procedur e are in the results section. XR ABDOMEN AP Routine 07/08/2021 1:31 Results fo r this [employer] procedure are i n the results section. POC CRITICAL Routine 07/08/2021 12:14 Results for this [employer] procedure are i n the results section. POC CHEM 8 Routine 07/08/2021 12:14 Results for this [employer] procedure are i n the results section. PROCALCITONIN Now 07/08/2021 12:13 Results fo r this [employer] procedure are i n the results section. FRACTIONATED BILIRUBIN Now 07/08/2021 12:13 R esults for this [employer] procedure are i n the results section. TOTAL PROTEIN Now 07/08/2021 12:13 Results fo r this [employer] procedure are i n the results section. ASPARTATE Now 07/08/2021 12:13 Results for this AMINOTRANSFERASE [employer] procedure a re in the results section. ALANINE Now 07/08/2021 12:13 Results for this AMINOTRANSFERASE [employer] procedure a re in the results section. ALKALINE PHOSPHATASE Now 07/08/2021 12:13 Res ults for this [employer] procedure are i n the results section. ALBUMIN LEVEL Now 07/08/2021 12:13 Results fo r this [employer] procedure are i n the results section. CALCIUM LEVEL TOTAL Now 07/08/2021 12:13 Resu lts for this [employer] procedure are i n the results section. .GLOMERULAR FILTRATION Now 07/08/2021 12:13 R esults for this RATE [employer] procedure are i n the results section. SERUM CREATININE Now 07/08/2021 12:13 Results for this [employer] procedure are i n the results section. ELECTROLYTE PANEL Now 07/08/2021 12:13 Result s for this [employer] procedure are i n the results section. BLOOD UREA NITROGEN Now 07/08/2021 12:13 Resu lts for this [employer] procedure are i n the results section. GLUCOSE LEVEL Now 07/08/2021 12:13 Results fo r this [employer] procedure are i n the results section. MANUAL DIFFERENTIAL STAT 07/08/2021 12:13 Resu lts for this [employer] procedure are i n the results section. Results CBC STAT 07/08/2021 12:13 Results for this [employer] procedure are i n the results section. CARDIAC PANEL Timed Study 07/08/2021 12:13 Results fo r this [employer] procedure are i n the results section. D DIMER Now 07/08/2021 12:13 Results for this [employer] procedure are i n the results section. APTT Now 07/08/2021 12:13 Results for this [employer] procedure are i n the results section. PROTHROMBIN TIME Now 07/08/2021 12:13 Results for this [employer] procedure are i n the results section. PHOSPHORUS LEVEL Now 07/08/2021 12:13 Results for this [employer] procedure are i n the results section. MAGNESIUM LEVEL Now 07/08/2021 12:13 Results for this [employer] procedure are i n the results section. COMPREHENSIVE METABOLIC Now 07/08/2021 12:13 PANEL [employer] COMPLETE BLOOD COUNT W/ Now 07/08/2021 12:13 DIFFERENTIAL [employer] XR CHEST 1 VW Routine 07/08/2021 11:38 Results fo r this [employer] procedure are i n the results section. COVID-19 (SARS-COV-2) Now 07/08/2021 11:23 Re sults for this ASYMPTOMATIC-LT [employer] procedure ar e in the results section. CT HEAD WO CONTRAST Routine 07/08/2021 11:05 Resu lts for this [employer] procedure are i n the results section. POC GLUCOSE SCREEN Routine 07/08/2021 10:47 Resul ts for this [employer] procedure are i n the results section. EKG, 12-LEAD (PORTABLE) STAT 07/08/2021 MANUAL DIFFERENTIAL Routine 07/04/2021 11:10 Primary squamous Results for this [employer] cell carcinoma of procedure are in larynx the results section. Results CBC Routine 07/04/2021 11:10 Primary squamous Results for this [employer] cell carcinoma of procedure are in larynx the results section. FRACTIONATED BILIRUBIN Routine 07/04/2021 11:10 Primary squamo us Results for this [employer] cell carcinoma of procedure are in larynx the results section. TOTAL PROTEIN Routine 07/04/2021 11:10 Primary squamous Result s for this [employer] cell carcinoma of procedure are in larynx the results section. ASPARTATE Routine 07/04/2021 11:10 Primary squamous Results for this AMINOTRANSFERASE [employer] cell carcinoma of proced ure are in larynx the results section. ALANINE Routine 07/04/2021 11:10 Primary squamous Results for this AMINOTRANSFERASE [employer] cell carcinoma of proced ure are in larynx the results section. ALKALINE PHOSPHATASE Routine 07/04/2021 11:10 Primary squamous Results for this [employer] cell carcinoma of procedure are in larynx the results section. ALBUMIN LEVEL Routine 07/04/2021 11:10 Primary squamous Result s for this [employer] cell carcinoma of procedure are in larynx the results section. CALCIUM LEVEL TOTAL Routine 07/04/2021 11:10 Primary squamous Results for this [employer] cell carcinoma of procedure are in larynx the results section. .GLOMERULAR FILTRATION Routine 07/04/2021 11:10 Primary squamo us Results for this RATE [employer] cell carcinoma of procedure are in larynx the results section. SERUM CREATININE Routine 07/04/2021 11:10 Primary squamous Res ults for this [employer] cell carcinoma of procedure are in larynx the results section. ELECTROLYTE PANEL Routine 07/04/2021 11:10 Primary squamous Re sults for this [employer] cell carcinoma of procedure are in larynx the results section. BLOOD UREA NITROGEN Routine 07/04/2021 11:10 Primary squamous Results for this [employer] cell carcinoma of procedure are in larynx the results section. GLUCOSE LEVEL Routine 07/04/2021 11:10 Primary squamous Result s for this [employer] cell carcinoma of procedure are in larynx the results section. PHOSPHORUS LEVEL Routine 07/04/2021 11:10 Primary squamous Res ults for this [employer] cell carcinoma of procedure are in larynx the results section. MAGNESIUM LEVEL Routine 07/04/2021 11:10 Primary squamous Resu lts for this [employer] cell carcinoma of procedure are in larynx the results section. COMPLETE BLOOD COUNT W/ Routine 07/04/2021 11:10 Primary squam ous DIFFERENTIAL [employer] cell carcinoma of larynx COMPREHENSIVE METABOLIC Routine 07/04/2021 11:10 Primary squam ous PANEL [employer] cell carcinoma of larynx MANUAL DIFFERENTIAL Routine 06/27/2021 8:00 Primary squamous Results for this [employer] cell carcinoma of procedure are in larynx the results section. Results CBC Routine 06/27/2021 8:00 Primary squamous Results for this [employer] cell carcinoma of procedure are in larynx the results section. FRACTIONATED BILIRUBIN Routine 06/27/2021 8:00 Primary squamo us Results for this [employer] cell carcinoma of procedure are in larynx the results section. TOTAL PROTEIN Routine 06/27/2021 8:00 Primary squamous Result s for this [employer] cell carcinoma of procedure are in larynx the results section. ASPARTATE Routine 06/27/2021 8:00 Primary squamous Results for this AMINOTRANSFERASE [employer] cell carcinoma of proced ure are in larynx the results section. ALANINE Routine 06/27/2021 8:00 Primary squamous Results for this AMINOTRANSFERASE [employer] cell carcinoma of proced ure are in larynx the results section. ALKALINE PHOSPHATASE Routine 06/27/2021 8:00 Primary squamous Results for this [employer] cell carcinoma of procedure are in larynx the results section. ALBUMIN LEVEL Routine 06/27/2021 8:00 Primary squamous Result s for this [employer] cell carcinoma of procedure are in larynx the results section. CALCIUM LEVEL TOTAL Routine 06/27/2021 8:00 Primary squamous Results for this [employer] cell carcinoma of procedure are in larynx the results section. .GLOMERULAR FILTRATION Routine 06/27/2021 8:00 Primary squamo us Results for this RATE [employer] cell carcinoma of procedure are in larynx the results section. SERUM CREATININE Routine 06/27/2021 8:00 Primary squamous Res ults for this [employer] cell carcinoma of procedure are in larynx the results section. ELECTROLYTE PANEL Routine 06/27/2021 8:00 Primary squamous Re sults for this [employer] cell carcinoma of procedure are in larynx the results section. BLOOD UREA NITROGEN Routine 06/27/2021 8:00 Primary squamous Results for this [employer] cell carcinoma of procedure are in larynx the results section. GLUCOSE LEVEL Routine 06/27/2021 8:00 Primary squamous Result s for this [employer] cell carcinoma of procedure are in larynx the results section. PHOSPHORUS LEVEL Routine 06/27/2021 8:00 Primary squamous Res ults for this [employer] cell carcinoma of procedure are in larynx the results section. MAGNESIUM LEVEL Routine 06/27/2021 8:00 Primary squamous Resu lts for this [employer] cell carcinoma of procedure are in larynx the results section. COMPLETE BLOOD COUNT W/ Routine 06/27/2021 8:00 Primary squam ous DIFFERENTIAL [employer] cell carcinoma of larynx COMPREHENSIVE METABOLIC Routine 06/27/2021 8:00 Primary squam ous PANEL [employer] cell carcinoma of larynx TROPONIN T STAT 06/22/2021 3:45 Results for this [employer] procedure are i n the results section. FRACTIONATED BILIRUBIN Now 06/22/2021 11:54 R esults for this [employer] procedure are i n the results section. TOTAL PROTEIN Now 06/22/2021 11:54 Results fo r this [employer] procedure are i n the results section. ASPARTATE Now 06/22/2021 11:54 Results for this AMINOTRANSFERASE [employer] procedure a re in the results section. ALANINE Now 06/22/2021 11:54 Results for this AMINOTRANSFERASE [employer] procedure a re in the results section. ALKALINE PHOSPHATASE Now 06/22/2021 11:54 Res ults for this [employer] procedure are i n the results section. ALBUMIN LEVEL Now 06/22/2021 11:54 Results fo r this [employer] procedure are i n the results section. CALCIUM LEVEL TOTAL Now 06/22/2021 11:54 Resu lts for this [employer] procedure are i n the results section. .GLOMERULAR FILTRATION Now 06/22/2021 11:54 R esults for this RATE [employer] procedure are i n the results section. SERUM CREATININE Now 06/22/2021 11:54 Results for this [employer] procedure are i n the results section. ELECTROLYTE PANEL Now 06/22/2021 11:54 Result s for this [employer] procedure are i n the results section. BLOOD UREA NITROGEN Now 06/22/2021 11:54 Resu lts for this [employer] procedure are i n the results section. GLUCOSE LEVEL Now 06/22/2021 11:54 Results fo r this [employer] procedure are i n the results section. MANUAL DIFFERENTIAL STAT 06/22/2021 11:54 Resu lts for this [employer] procedure are i n the results section. Results CBC STAT 06/22/2021 11:54 Results for this [employer] procedure are i n the results section. CKMB Now 06/22/2021 11:54 Results for this [employer] procedure are i n the results section. CREATINE KINASE Now 06/22/2021 11:54 Results for this [employer] procedure are i n the results section. NT PRO BNP Now 06/22/2021 11:54 Results for this [employer] procedure are i n the results section. PHOSPHORUS LEVEL Now 06/22/2021 11:54 Results for this [employer] procedure are i n the results section. MAGNESIUM LEVEL Now 06/22/2021 11:54 Results for this [employer] procedure are i n the results section. COMPREHENSIVE METABOLIC Now 06/22/2021 11:54 PANEL [employer] COMPLETE BLOOD COUNT W/ Now 06/22/2021 11:54 DIFFERENTIAL [employer] COVID-19 (SARS-COV-2) Now 06/22/2021 11:54 Re sults for this ASYMPTOMATIC-LT [employer] procedure ar e in the results section. EKG, 12-LEAD (PORTABLE) Routine 06/22/2021 EKG, 12-LEAD (PORTABLE) STAT 06/22/2021 CT HEAD/NECK SIMULATION Routine 06/21/2021 9:00 Primary squam ous Results for this WO CONTRAST (RO) [employer] cell carcinoma of proced ure are in larynx the results section. MANUAL DIFFERENTIAL Routine 06/20/2021 8:07 Primary squamous Results for this [employer] cell carcinoma of procedure are in larynx the results section. Results CBC Routine 06/20/2021 8:07 Primary squamous Results for this [employer] cell carcinoma of procedure are in larynx the results section. FRACTIONATED BILIRUBIN Routine 06/20/2021 8:07 Primary squamo us Results for this [employer] cell carcinoma of procedure are in larynx the results section. TOTAL PROTEIN Routine 06/20/2021 8:07 Primary squamous Result s for this [employer] cell carcinoma of procedure are in larynx the results section. ASPARTATE Routine 06/20/2021 8:07 Primary squamous Results for this AMINOTRANSFERASE [employer] cell carcinoma of proced ure are in larynx the results section. ALANINE Routine 06/20/2021 8:07 Primary squamous Results for this AMINOTRANSFERASE [employer] cell carcinoma of proced ure are in larynx the results section. ALKALINE PHOSPHATASE Routine 06/20/2021 8:07 Primary squamous Results for this [employer] cell carcinoma of procedure are in larynx the results section. ALBUMIN LEVEL Routine 06/20/2021 8:07 Primary squamous Result s for this [employer] cell carcinoma of procedure are in larynx the results section. CALCIUM LEVEL TOTAL Routine 06/20/2021 8:07 Primary squamous Results for this [employer] cell carcinoma of procedure are in larynx the results section. .GLOMERULAR FILTRATION Routine 06/20/2021 8:07 Primary squamo us Results for this RATE [employer] cell carcinoma of procedure are in larynx the results section. SERUM CREATININE Routine 06/20/2021 8:07 Primary squamous Res ults for this [employer] cell carcinoma of procedure are in larynx the results section. ELECTROLYTE PANEL Routine 06/20/2021 8:07 Primary squamous Re sults for this [employer] cell carcinoma of procedure are in larynx the results section. BLOOD UREA NITROGEN Routine 06/20/2021 8:07 Primary squamous Results for this [employer] cell carcinoma of procedure are in larynx the results section. GLUCOSE LEVEL Routine 06/20/2021 8:07 Primary squamous Result s for this [employer] cell carcinoma of procedure are in larynx the results section. PHOSPHORUS LEVEL Routine 06/20/2021 8:07 Primary squamous Res ults for this [employer] cell carcinoma of procedure are in larynx the results section. MAGNESIUM LEVEL Routine 06/20/2021 8:07 Primary squamous Resu lts for this [employer] cell carcinoma of procedure are in larynx the results section. COMPLETE BLOOD COUNT W/ Routine 06/20/2021 8:07 Primary squam ous DIFFERENTIAL [employer] cell carcinoma of larynx COMPREHENSIVE METABOLIC Routine 06/20/2021 8:07 Primary squam ous PANEL [employer] cell carcinoma of larynx MANUAL DIFFERENTIAL Routine 06/13/2021 7:00 Primary squamous Results for this [employer] cell carcinoma of procedure are in larynx the results section. Results CBC Routine 06/13/2021 7:00 Primary squamous Results for this [employer] cell carcinoma of procedure are in larynx the results section. FRACTIONATED BILIRUBIN Routine 06/13/2021 7:00 Primary squamo us Results for this [employer] cell carcinoma of procedure are in larynx the results section. TOTAL PROTEIN Routine 06/13/2021 7:00 Primary squamous Result s for this [employer] cell carcinoma of procedure are in larynx the results section. ASPARTATE Routine 06/13/2021 7:00 Primary squamous Results for this AMINOTRANSFERASE [employer] cell carcinoma of proced ure are in larynx the results section. ALANINE Routine 06/13/2021 7:00 Primary squamous Results for this AMINOTRANSFERASE [employer] cell carcinoma of proced ure are in larynx the results section. ALKALINE PHOSPHATASE Routine 06/13/2021 7:00 Primary squamous Results for this [employer] cell carcinoma of procedure are in larynx the results section. ALBUMIN LEVEL Routine 06/13/2021 7:00 Primary squamous Result s for this [employer] cell carcinoma of procedure are in larynx the results section. CALCIUM LEVEL TOTAL Routine 06/13/2021 7:00 Primary squamous Results for this [employer] cell carcinoma of procedure are in larynx the results section. .GLOMERULAR FILTRATION Routine 06/13/2021 7:00 Primary squamo us Results for this RATE [employer] cell carcinoma of procedure are in larynx the results section. SERUM CREATININE Routine 06/13/2021 7:00 Primary squamous Res ults for this [employer] cell carcinoma of procedure are in larynx the results section. ELECTROLYTE PANEL Routine 06/13/2021 7:00 Primary squamous Re sults for this [employer] cell carcinoma of procedure are in larynx the results section. BLOOD UREA NITROGEN Routine 06/13/2021 7:00 Primary squamous Results for this [employer] cell carcinoma of procedure are in larynx the results section. GLUCOSE LEVEL Routine 06/13/2021 7:00 Primary squamous Result s for this [employer] cell carcinoma of procedure are in larynx the results section. PHOSPHORUS LEVEL Routine 06/13/2021 7:00 Primary squamous Res ults for this [employer] cell carcinoma of procedure are in larynx the results section. MAGNESIUM LEVEL Routine 06/13/2021 7:00 Primary squamous Resu lts for this [employer] cell carcinoma of procedure are in larynx the results section. COMPLETE BLOOD COUNT W/ Routine 06/13/2021 7:00 Primary squam ous DIFFERENTIAL [employer] cell carcinoma of larynx COMPREHENSIVE METABOLIC Routine 06/13/2021 7:00 Primary squam ous PANEL [employer] cell carcinoma of larynx MANUAL DIFFERENTIAL Routine 06/06/2021 6:58 Primary squamous Results for this [employer] cell carcinoma of procedure are in larynx the results section. Results CBC Routine 06/06/2021 6:58 Primary squamous Results for this [employer] cell carcinoma of procedure are in larynx the results section. FRACTIONATED BILIRUBIN Routine 06/06/2021 6:58 Primary squamo us Results for this [employer] cell carcinoma of procedure are in larynx the results section. TOTAL PROTEIN Routine 06/06/2021 6:58 Primary squamous Result s for this [employer] cell carcinoma of procedure are in larynx the results section. ASPARTATE Routine 06/06/2021 6:58 Primary squamous Results for this AMINOTRANSFERASE [employer] cell carcinoma of proced ure are in larynx the results section. ALANINE Routine 06/06/2021 6:58 Primary squamous Results for this AMINOTRANSFERASE [employer] cell carcinoma of proced ure are in larynx the results section. ALKALINE PHOSPHATASE Routine 06/06/2021 6:58 Primary squamous Results for this [employer] cell carcinoma of procedure are in larynx the results section. ALBUMIN LEVEL Routine 06/06/2021 6:58 Primary squamous Result s for this [employer] cell carcinoma of procedure are in larynx the results section. 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 SERUM CREATININE Routine 06/06/2021 6:58 Primary squamous Res ults for this [employer] cell carcinoma of procedure are in larynx the results section. ELECTROLYTE PANEL Routine 06/06/2021 6:58 Primary squamous Re sults for this [employer] cell carcinoma of procedure are in larynx the results section. 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 GLUCOSE LEVEL Routine 06/06/2021 6:58 Primary squamous Result s for this [employer] cell carcinoma of procedure are in larynx the results section. PHOSPHORUS LEVEL Routine 06/06/2021 6:58 Primary squamous Res ults for this [employer] cell carcinoma of procedure are in larynx the results section. MAGNESIUM LEVEL Routine 06/06/2021 6:58 Primary squamous Resu lts for this [employer] cell carcinoma of procedure are in larynx the results section. 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 TOTAL PROTEIN Routine 05/30/2021 8:28 Primary squamous Result s for this [employer] cell carcinoma of procedure are in larynx the results section. ASPARTATE Routine 05/30/2021 8:28 Primary squamous Results for this AMINOTRANSFERASE [employer] cell carcinoma of proced ure are in larynx the results section. ALANINE Routine 05/30/2021 8:28 Primary squamous Results for this AMINOTRANSFERASE [employer] cell carcinoma of proced ure are in larynx the results section. 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 ALBUMIN LEVEL Routine 05/30/2021 8:28 Primary squamous Result s for this [employer] cell carcinoma of procedure are in larynx the results section. 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 SERUM CREATININE Routine 05/30/2021 8:28 Primary squamous Res ults for this [employer] cell carcinoma of procedure are in larynx the results section. ELECTROLYTE PANEL Routine 05/30/2021 8:28 Primary squamous Re sults for this [employer] cell carcinoma of procedure are in larynx the results section. 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 GLUCOSE LEVEL Routine 05/30/2021 8:28 Primary squamous Result s for this [employer] cell carcinoma of procedure are in larynx the results section. PHOSPHORUS LEVEL Routine 05/30/2021 8:28 Primary squamous Res ults for this [employer] cell carcinoma of procedure are in larynx the results section. MAGNESIUM LEVEL Routine 05/30/2021 8:28 Primary squamous Resu lts for this [employer] cell carcinoma of procedure are in larynx the results section. 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 FRACTIONATED BILIRUBIN Routine 05/23/2021 8:42 Primary squamo us Results for this [employer] cell carcinoma of procedure are in larynx the results section. TOTAL PROTEIN Routine 05/23/2021 8:42 Primary squamous Result s for this [employer] cell carcinoma of procedure are in larynx the results section. ASPARTATE Routine 05/23/2021 8:42 Primary squamous Results for this AMINOTRANSFERASE [employer] cell carcinoma of proced ure are in larynx the results section. ALANINE Routine 05/23/2021 8:42 Primary squamous Results for this AMINOTRANSFERASE [employer] cell carcinoma of proced ure are in larynx the results section. 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 ALBUMIN LEVEL Routine 05/23/2021 8:42 Primary squamous Result s for this [employer] cell carcinoma of procedure are in larynx the results section. 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 SERUM CREATININE Routine 05/23/2021 8:42 Primary squamous Res ults for this [employer] cell carcinoma of procedure are in larynx the results section. ELECTROLYTE PANEL Routine 05/23/2021 8:42 Primary squamous Re sults for this [employer] cell carcinoma of procedure are in larynx the results section. 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 GLUCOSE LEVEL Routine 05/23/2021 8:42 Primary squamous Result s for this [employer] cell carcinoma of procedure are in larynx the results section. PHOSPHORUS LEVEL Routine 05/23/2021 8:42 Primary squamous Res ults for this [employer] cell carcinoma of procedure are in larynx the results section. MAGNESIUM LEVEL Routine 05/23/2021 8:42 Primary squamous Resu lts for this [employer] cell carcinoma of procedure are in larynx the results section. COMPLETE BLOOD COUNT W/ Routine 05/23/2021 8:42 Primary squam ous DIFFERENTIAL [employer] cell carcinoma of larynx COMPREHENSIVE METABOLIC Routine 05/23/2021 8:42 Primary squam ous PANEL [employer] cell carcinoma of larynx FL MODIFIED BARIUM Routine 05/18/2021 9:57 Primary squamous R esults for this SWALLOW W SPEECH [employer] cell carcinoma of proced ure are in larynx the results section. CT HEAD/NECK SIMULATION Routine 05/11/2021 10:46 Primary squam ous Results for this WO CONTRAST (RO) [employer] cell carcinoma of proced ure are in larynx the results section. COVID-19 Routine 05/11/2021 9:05 Encounter for Results fo r this (SARS-COV-2) PCR [employer] observation for procedur e are in ASYMPTOMATIC other suspected the results exposure to section. biological agent ruled out ORTHOPANTOGRAM Routine 05/06/2021 10:53 Encounter for Results for this [employer] observation for procedure ar e in other suspected the results disease ruled out section. 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 FRACTIONATED BILIRUBIN Routine 05/04/2021 11:10 Primary squamo us Results for this [employer] cell carcinoma of procedure are in larynx the results section. TOTAL PROTEIN Routine 05/04/2021 11:10 Primary squamous Result s for this [employer] cell carcinoma of procedure are in larynx the results section. ASPARTATE Routine 05/04/2021 11:10 Primary squamous Results for this AMINOTRANSFERASE [employer] cell carcinoma of proced ure are in larynx the results section. ALANINE Routine 05/04/2021 11:10 Primary squamous Results for this AMINOTRANSFERASE [employer] cell carcinoma of proced ure are in larynx the results section. 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 ALBUMIN LEVEL Routine 05/04/2021 11:10 Primary squamous Result s for this [employer] cell carcinoma of procedure are in larynx the results section. 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 SERUM CREATININE Routine 05/04/2021 11:10 Primary squamous Res ults for this [employer] cell carcinoma of procedure are in larynx the results section. VITAMIN D 25 HYDROXY Routine 05/04/2021 11:10 Primary squamous Results for this LEVEL [employer] cell carcinoma of procedure are in larynx the results section. 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 PHOSPHORUS LEVEL Routine 05/04/2021 11:10 Primary squamous Res ults for this [employer] cell carcinoma of procedure are in larynx the results section. MAGNESIUM LEVEL Routine 05/04/2021 11:10 Primary squamous Resu lts for this [employer] cell carcinoma of procedure are in larynx the results section. GLUCOSE, RANDOM Routine 05/04/2021 11:10 Primary squamous Resu lts for this [employer] cell carcinoma of procedure are in larynx the results section. 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 ELECTROLYTE PANEL Routine 05/04/2021 11:10 Primary squamous Re sults for this [employer] cell carcinoma of procedure are in larynx the results section. COVID-19 Routine 05/04/2021 10:23 Suspected COVID-19 Resul ts for this (SARS-COV-2) PCR [employer] procedure a re in ASYMPTOMATIC the results section. TMP HCVAB INTERP Routine 05/03/2021 8:26 Results for this [employer] procedure are i n the results section. 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 TOTAL PROTEIN Routine 05/03/2021 8:26 Primary squamous Result s for this [employer] cell carcinoma of procedure are in larynx the results section. ASPARTATE Routine 05/03/2021 8:26 Primary squamous Results for this AMINOTRANSFERASE [employer] cell carcinoma of proced ure are in larynx the results section. ALANINE Routine 05/03/2021 8:26 Primary squamous Results for this AMINOTRANSFERASE [employer] cell carcinoma of proced ure are in larynx the results section. 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 ALBUMIN LEVEL Routine 05/03/2021 8:26 Primary squamous Result s for this [employer] cell carcinoma of procedure are in larynx the results section. 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 SERUM CREATININE Routine 05/03/2021 8:26 Primary squamous Res ults for this [employer] cell carcinoma of procedure are in larynx the results section. ELECTROLYTE PANEL Routine 05/03/2021 8:26 Primary squamous Re sults for this [employer] cell carcinoma of procedure are in larynx the results section. 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 GLUCOSE LEVEL Routine 05/03/2021 8:26 Primary squamous Result s for this [employer] cell carcinoma of procedure are in larynx the results section. 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 FREE THYROXINE Routine 05/03/2021 8:26 Primary squamous Resul ts for this [employer] cell carcinoma of procedure are in larynx the results section. HEPATITIS C VIRUS Routine 05/03/2021 8:26 Primary squamous Re sults for this ANTIBODY [employer] cell carcinoma of procedure are in larynx the results section. 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 CT SOFT TISSUE NECK W Routine 05/03/2021 7:27 Primary squamou s Results for this CONTRAST [employer] cell carcinoma of procedure are in larynx the results section. POC CREATININE Routine 05/03/2021 6:56 Results f or this [employer] procedure are i n the results section. [...] are i n the results section. after 09/10/2020 Results (ABNORMAL) POC Glucose Screen (08/31/2021 10:15 AM CDT)Only the most recent of40 resultswithin the time period is included. [facility] POC Glucose 131 (H) 70 - 99 [...] Sample Type Capillary POC [facility]: [facility], [address] [place] [id number]; Breakdown Man: Loida Chavez MD Specimen Blood Performing Organization Address [facility] Phon e Number POC TELCOR .Serum Creatinine (08/31/2021 4:26 AM CDT)Only the most recent of27 results within the time period is included. [facility] nature Creatinine 0.71 0.67 - 1.17 mg/dL [facility] CANCER C ENTER Specimen Blood Performing Organization Address [facility] Phon e Number [facility] CANCER Unless otherwise noted, [place] [address] M[place]ENO all lab tests performed by: Division of Pathology and Laboratory Medicine [address] [place] [address] (ABNORMAL) .CBC (08/31/2021 4:26 AM CDT)Only the most recent of21 resultswithin the time period is included. [facility] WBC 4.4 4.0 - 11.0 [facility] K/uL CANCER CENTER RBC 3.03 (L) 4.50 - 6.00 [facility] M/ CANCER CENTER Hgb 8.3 (L) 14.0 - 18.0 [facility] gm/dL [facility] CENTER Hct 26.8 (L) 40.0 - 54.0 % [facility] MCV 88 82 - 98 fL [facility] MCH 27.4 27.0 - 31.0 pg [facility] MCHC 31.0 31.0 - 36.0 [facility] gm/dL [facility] CENTER RDW-SD 46.0 35.1 - 46.3 fL [facility] RDW-CV 14.1 12.0 - 15.5 % [facility] Platelet count 236 140 - 440 K/uL [facility] MPV 10.0 4.0 - 10.4 fL [facility] INRBC 0.0 <=0.0 % [facility] Comment: CANCER CENTER The INRBC (instrument NRBC) value reflects the enumera tion of nucleated red blood cells contained in a 200uL samp le of whole blood analyzed by the instrument. This value may differ from the NRBC value reported in a manual differ ential, which is based on a 100 cell differential. Specimen Blood Performing Organization Address City/State/ZIP Code Phon e Number [facility] Unless otherwise noted, [place] [address] M[place] all lab tests performed by: Division of Pathology and Laboratory Medicine [facility] Glomerular Filtration Rate (08/31/2021 4:26 AM CDT)Only the most recent of27 resultswithin the time period is included. eGFR-AA 108 >=60 [facility] Comment: mL/min/1.73 [facility] Normal eGFR: >= 60 mL/min/1.73 m2 sq. m Note: The eGFR is calculated using the CKD-EPI equation. The eGFR declines with age. eGFR <60 mL/min/1.73 m2 is considered as "decreased". This equation should only be used for patients 18 and older. According to the National [facility]'s Kidney Disease Outcome Quality [...] 5 Kidney failure <15 eGFR-JOSELITO 94 >=60 [facility] Comment: mL/min/1.73 [facility] Normal eGFR: >= 60 mL/min/1.73 m2 sq. m Note: The eGFR is calculated using the CKD-EPI equation. The eGFR declines with age. eGFR <60 mL/min/1.73 m2 is considered as "decreased". This equation should only be used for patients 18 and older. According to the National [facility]'s Kidney Disease Outcome Quality Initiative (KDOQI) classification [...] failure <15 Specimen Blood Performing Organization Address City/[facility] Phon e Number [facility] Unless otherwise noted, [address] all lab tests performed by: Division of Pathology and Laboratory Medicine [id number] (ABNORMAL) Differential (08/31/2021 4:26 AM CDT)Only the most recent of21 resultswithin the time period is included. Neutrophil % 71.7 (H) 42.0 - 66.0 % [facility] Lymphocyte % 14.8 (L) 24.0 - 44.0 % [facility] Monocyte % 6.6 2.0 - 7.0 % [facility] Eosinophil % 5.7 (H) 1.0 - 4.0 % [facility] Basophil % 0.7 0.0 - 1.0 % [facility] IGRE % 0.5 (H)Comment: 0.0 - 0.4 % [facility] IGRE % count [facility] includes Metamyelocytes, Myelocytes, and Promyelocytes. Neutrophil Abs 3.16 1.70 - 7.30 [facility] Lymphocyte Abs 0.65 (L) 1.00 - 4.80 [facility] Monocyte Abs 0.29 0.08 - 0.70 [facility] Eosinophil Abs 0.25 0.04 - 0.40 [facility] Basophil Abs 0.03 0.00 - 0.10 [facility] IG Abs 0.02 0.00 - 0.04 [facility] Specimen Blood Performing Organization Address City/[facility] Phon e Number [facility] CANCER Unless otherwise noted, [address] all lab tests performed by: Division of Pathology and Laboratory Medicine [address] BUN (08/31/2021 4:26 AM CDT)Only the most recent of27 resultswithin the time period is included. Pathologist Sig nature BUN 15 6 - 23 mg/dL [facility] Specimen Blood Performing Organization Address City/[facility]/ZIP Code Phon e Number [facility] CANCER Unless otherwise noted, [address] all lab tests performed by: Division of Pathology and Laboratory Medicine [address] Phosphorus Level (08/31/2021 4:26 AM CDT)Only the most recent of26 results within the time period is included. Pathologist Sig nature Phosphorus 3.0 2.5 - 4.5 mg/dL [facility] TER Specimen Blood Performing Organization Address [facility] Phon e Number [facility] CANCER Unless otherwise noted, [address] all lab tests performed by: Division of Pathology and Laboratory Medicine [address] Magnesium Level (08/31/2021 4:26 AM CDT)Only the most recent of26 resultswithin the time period is included. Pathologist Sig nature Magnesium 1.8 1.6 - 2.6 mg/dL [facility] TER Specimen Blood Performing Organization Address [facility] Phon e Number [facility] CANCER Unless otherwise noted, [address] all lab tests performed by: Division of Pathology and Laboratory Medicine [address] (ABNORMAL) Glucose Level (08/31/2021 4:26 AM CDT)Only the most recent of26 resultswithin the time period is included. Glucose Level 136 (H) 70 - 99 mg/dL [facility] Comment: CANCER CENTER Effective 12/29/15, the gluco se reference intervals have been updated based on [place] Diabetes [employer] guidelines (Standards of Medical Care in Diabetes 2016. Diabetes Care 2016; 39: S13-S22). Fasting blood glucose: Normal: 70-99 mg/dL Impaired fasting glucose (in creased risk for diabetes or pre-diabetes): 100- 125 mg/dL Diabetes mellitus: >/=126 mg/dL Random blood glucose: Normal: 70-199 mg/dL Note: Random glucose >100 mg/dL is assoc iated with increased risk for diabetes Specimen Blood Performing Organization Address City/[facility]/ZIP Code Phon e Number [facility] CANCER Unless otherwise noted, [address] all lab tests performed by: Division of Pathology and Laboratory Medicine [address] [place] [address] Calcium Level (08/31/2021 4:26 AM CDT)Only the most recent of26 resultswithin the time period is included. Pathologist Sig nature Calcium Lvl 8.4 8.4 - 10.2 mg/dL [facility] CE NTER Specimen Blood Performing Organization Address [facility] Phon e Number [facility] CANCER Unless otherwise noted, [address] all lab tests performed by: Division of Pathology and Laboratory Medicine [address] [place] [address] (ABNORMAL) Electrolyte Panel (08/31/2021 4:26 AM CDT)Only the most recent of27 resultswithin the time period is included. Pathologist Sig nature Sodium Lvl 138 136 - 145 mEq/L [facility] Potassium Lvl 3.4 (L) 3.5 - 5.1 mEq/L [facility] Chloride 101 98 - 107 mEq/L [facility] CO2 26 22 - 29 mEq/L [facility] Anion Gap 11 4 - 14 mEq/L [facility] Specimen Blood Performing Organization Address City/[facility] Phon e Number [facility] CANCER Unless otherwise noted, [address] all lab tests performed by: Division of Pathology and Laboratory Medicine [address] [facility] [place] Modified Barium Swallow w Speech (08/30/2021 3:15 PM CDT)Only the most recent of2 resultswithin the time period is included. Anatomical Region Laterality Modality Neck Radio Fluoroscopy Specimen Impressions [id number] - 08/30/2021 5:04 PM CDT 1. Sensate [...] of the swallow function and recommendations. Narrative [id number] - 08/30/2021 5:04 PM CDT FULL RESULT: [...] swallow function and recommendations. Performing Organization Address [facility] Phon e Number [id number] XR Abdomen 1 View Portable (08/29/2021 6:11 PM CDT) Anatomical Region Laterality Modality Abdomen Digital Radiography Specimen Impressions [id number] - 08/29/2021 7:19 PM CDT Dobbhoff tube follows the course of the duodenum, tip projecting near the duodenojejunal junction. Narrative [id number] - 08/29/2021 7:19 PM CDT FULL RESULT: [...] near the duodenojejunal junction. Performing Organization Address [facility] Code Phon e Number [id number] Pathology Biopsy Interpretation (08/29/2021 2:14 PM CDT) Pathologist Sig nature Submitted Clinical Iron deficiency [facility] History anemia, not otherwise specified [D50.9] Diagnosis A: Duodenum, biopsy: [facility] Electro nically signed Duodenal mucosa [...] p, biopsy: Tubular adenoma. Gross Description A: [facility] Duodenum, duodenum: 3 soft t [...] in D1. ET Disclaimer "Some tests reported [facility] here may have been developed and performance characteristics determined by [facility] Pathology and Laboratory Medicine. These tests have not been specifically cleared or approved by the U.S. Food and Drug Administration. If applicable, controls were reviewed and showed appropriate reactivity." Specimen Tissue - Duodenum Tissue - Stomach Tissue - Stomach Tissue - Colon Performing Organization Address City/[facility]/ZIP Code Phon e Number [facility] [place] [address] [place] [address] [address] (ABNORMAL) Prothrombin Time with INR (08/29/2021 5:31 AM CDT)Only the most recent of3 resultswithin the time period is included. Pathologist Sig nature PT 14.9 (H) 11.5 - 13.9 [facility] CANCER second(s) CENTER INR 1.26 (H) 0.90 - 1.10 [facility] Specimen Blood Performing Organization Address City/State/ZIP Code Phon e Number [facility] CANCER Unless otherwise noted, [place] [address] CENTER all lab tests performed by: Division of Pathology and Laboratory Medicine [address] [place] [address] [address] Transfuse RBC:Transfusion Date: 08/25/2021 (08/26/2021 6:58 AM CDT)Only the most recent of2 resultswithin the time period is included.Confirm ABORh (08/25/2021 6:19 PM CDT) Pathologist Sig nature ABORh Confirm. O NEG [facility] CANCER CENT ER Specimen Blood Performing Organization Address City/State/ZIP Code Phon e Number [facility] CANCER Unless otherwise noted, [place] [address] CENTER all lab tests performed by: Division of Pathology and Laboratory Medicine [address] COVID-19 (SARS-CoV-2)Asymptomatic-LT (08/25/2021 6:15 PM CDT)Only the most recent of3 resultswithin the time period is included. COVID19 Not Detected Not Detected [facility] (SARS-CoV-2) [facility] COVID19 SARS Inpatient Admission [facility] Indication [facility] CENTER Covid 19 Comment See Note [facility] Comment: [facility] The rufino SARS-CoV-2 nucleic acid test for use on the rufino Alyson System is a real-time RT-PCR assay intended for the qualitative detection of SARS-CoV-2 (COVID-19) viral RNA in nasopharyngeal swabs from either individuals suspected of COVID-19 by their healthcare provider or from any individual, including individuals without symptoms or other reasons to suspect COVID-19. A fact sheet for patients provided by the shingle packer ([employer]) can be reviewed at: https://www.fda.gov/media/32 9349/download. A fact sheet for Health Care providers is provided by the shingle packer ([employer]) and can be reviewed at: https://www.fda.gov/media/862728/download Results must be interpreted within the context [...] and high-complexity tests. The Microbiology Laboratory at [facility], CLIA Accreditation # [id number] and CAP Accreditation #[id number], verified the performance characteristics of this assay. Internal controls are used to monitor all stages of the test process. Specimen Nasopharyngeal Swab Performing Organization Address City/[facility] Phon e Number [facility] CANCER Unless otherwise noted, [address] all lab tests performed by: Division of Pathology and Laboratory Medicine [facility] [address] Clot Expiration Date (08/25/2021 6:15 PM CDT) Pathologist [facility] nature T & S Expiration 08/28/2021 [facility] Specimen Blood Performing Organization Address [facility] Phon e Number [facility] CANCER Unless otherwise noted, [address] all lab tests performed by: Division of Pathology and Laboratory Medicine [address] [place] [address] Fractionated Bilirubin (08/25/2021 6:15 PM CDT)Only the most recent of12 resultswithin the time period is included. [facility] Bili Total 0.4 <=1.2 mg/dL [facility] Comment: CANCER CENTER Indocyanine Green (ICG) may cause falsely elevated bilirubin results. Total and direct bilirubin must not be measured from samples containing indocyanine green. False elevation of total emmett irubin can be seen in patients with IgG concentrations above 28 g/L. Bili Direct 0.2Comment: <=0.3 mg/dL [facility] Indocyanine Green CANCER CENTER (ICG) may cause falsely elevated bilirubin results. Total and direct bilirubin must not be measured from samples containing indocyanine green. Bili Indirect 0.2 0.0 - 0.9 [facility] mg/dL CANCER CENTER Specimen Blood Performing Organization Address City/[facility] Phon e Number [facility] CANCER Unless otherwise noted, [address] all lab tests performed by: Division of Pathology and Laboratory Medicine [address] [place] [address] [address] TMP Interpretation Antibody Screen Negative (08/25/2021 6:15 PM CDT) [facility] TMP Auto Neg ABSC At the present time, patien t plasma shows no evidence of RBC alloantibodies. [facility] Interp Comment: [facility] MD Carri ALLEN [id number] Dictated by: MD Carri ALLEN [id number] Dictated Date/Time: 08.27.19 8:43 AM CDT Transcribed Date/Time: 08.26.2021 8:43 AM CDT Electronically Signed By: MD Carri CAZARES on 08.26.2021 8:43 AM C Specimen Blood Performing Organization Address City/[facility] Phon e Number [place] [facility] Unless otherwise noted, [address] all lab tests performed by: Division of Pathology and Laboratory Medicine [facility] TMP Interpretation Crossmatch (08/25/2021 6:15 PM CDT) TMP XM Interp RBC units crossmatched for transfusion appear ac ceptable. [facility] [facility] Comment: CANCER CENTER MD Carri ALLEN [id number] Dictated by: MD Carri ALLEN [id number] Dictated Date/Time: 08.27.19 8:43 AM CDT Transcribed Date/Time: 08.26.2021 8:43 AM CDT Electronically Signed By: MD Carri CAZARES [id number] on 08.26.2021 8:43 AM C Specimen Blood Performing Organization Address City/[facility] Phon e Number [place] [facility] Unless otherwise noted, [address] all lab tests performed by: Division of Pathology and Laboratory Medicine [facility]5 [address] aPTT (08/25/2021 6:15 PM CDT)Only the most recent of2 resultswithin the time period is included. Pathologist Sig nature aPTT 32.7 24.7 - 36.8 second(s) [facility] CENTER Specimen Blood Performing Organization Address City/[facility]/ZIP Code Phon e Number [facility] CANCER Unless otherwise noted, [address] all lab tests performed by: Division of Pathology and Laboratory Medicine [address] ABORh (08/25/2021 6:15 PM CDT) Pathologist Sig nature ABORh. O NEG [facility] Specimen Blood Performing Organization Address City/[facility]/ZIP Code Phon e Number [facility] Unless otherwise noted, [address] all lab tests performed by: Division of Pathology and Laboratory Medicine [address] Antibody Screen (08/25/2021 6:15 PM CDT) Pathologist Sig nature ABSC. Negative ABSC [facility] CENTE R Specimen Blood Performing Organization Address [facility] Phon e Number [facility] Unless otherwise noted, [address] all lab tests performed by: Division of Pathology and Laboratory Medicine [address] ALT (08/25/2021 6:15 PM CDT)Only the most recent of12 resultswithin the time period is included. Pathologist Sig nature ALT 29 <=41 U/L [facility] Specimen Blood Performing Organization Address [facility] Phon e Number [facility] Unless otherwise noted, [address] all lab tests performed by: Division of Pathology and Laboratory Medicine [address] Aspartate Aminotransferase (08/25/2021 6:15 PM CDT)Only the most recent of12 resultswithin the time period is included. Pathologist Sig nature AST 32 <=40 U/L [facility] Specimen Blood Performing Organization Address City/[facility]/ZIP Code Phon e Number [facility] Unless otherwise noted, [address] all lab tests performed by: Division of Pathology and Laboratory Medicine [address] Total Protein (08/25/2021 6:15 PM CDT)Only the most recent of12 resultswithin the time period is included. Pathologist Sig nature Total Protein 7.2 6.4 - 8.3 g/dL [facility] [address]IE TER Specimen Blood Performing Organization Address City/[facility]/ZIP Code Phon e Number [place] [facility] Unless otherwise noted, [address] all lab tests performed by: Division of Pathology and Laboratory Medicine [address] [place] [address] Alkaline Phosphatase (08/25/2021 6:15 PM CDT)Only the most recent of12 results within the time period is included. Pathologist Sig nature Alk Phos 64 40 - 129 U/L [facility] Specimen Blood Performing Organization Address City/[facility] Phon e Number [facility] CANCER Unless otherwise noted, [address] all lab tests performed by: Division of Pathology and Laboratory Medicine [address] [place] [address] Albumin Level (08/25/2021 6:15 PM CDT)Only the most recent of12 resultswithin the time period is included. Pathologist Sig nature Albumin Lvl 3.7 3.5 - 5.2 gm/dL [facility] TER Specimen Blood Performing Organization Address City/[facility] Phon e Number [facility] CANCER Unless otherwise noted, [address] all lab tests performed by: Division of Pathology and Laboratory Medicine [address] [place] [address] RBC Product Ready for Gem Carver (08/25/2021 4:47 PM CDT) PRBC Product Ready B2 Blood [facility] for Gem Carver BankComment: [facility] Product is ready for pick up and delivery driver on August 25, 2021 22:21:56 CDT. Specimen Blood Performing Organization Address [facility] Phon e Number [facility] CANCER Unless otherwise noted, [address] all lab tests performed by: Division of Pathology and Laboratory Medicine [address] [place] [address] Prepare RBC:accc, 2 Units (08/25/2021 4:47 PM CDT) PRBC Product Ready 2Comment: Red Blood [facility] Cells Available - [facility] Order Form 03 when ready for product issue. Unit Number [id number] [facility] Product Code [id number] [facility] Unit Expiration [id number] [facility] Unit Blood Type 9500 [facility] Product Code Text RBCIRLR CPD AS1 [facility] 500mL [facility] Crossmatch [id number] [facility] Expiration Date CANCER CENTER Unit Irradiated IRRADIATED [facility] Dispense Status ISSUED [facility] Unit Blood Type O Negative [facility] Product Gem Carver .BPAMComment: [facility] Location CANCER CENTER Unit Number [id number] [facility] Product Code [id number] [facility] Unit Expiration [id number] [facility] Unit Blood Type 9500 [facility] Product Code Text RBCIRLR CPD AS1 [facility] 500mL [facility] Crossmatch [id number] [facility] Expiration Date [facility]ER CENTER Unit Irradiated IRRADIATED [facility] Dispense Status ISSUED [facility] Unit Blood Type O Negative [facility] Product Gem Carver .BPAMComment: [facility] Location [facility] Specimen Blood Performing Organization Address City/State/ZIP Code Phon e Number [facility] CANCER Unless otherwise noted, [place] [address] [address] all lab tests performed by: Division of Pathology and Laboratory Medicine [address] [place] [address] X-ray Chest 2 Views (08/25/2021 11:17 AM CDT) Anatomical Region Laterality Modality Chest Digital Radiography Specimen Impressions [id number] - 08/25/2021 11:31 AM CDT There are mild opacities over the dorsal costophrenic recess on the lateral view that may represent either aspiration or pneumonia. Narrative [id number] - 08/25/2021 11:31 AM CDT FULL RESULT: [...] Organization Address City/State/ZIP Code Phon e Number [id number] Flexible nasopharyngeal laryngoscopy (08/22/2021 10:38 AM CDT) Rebecca Mark CCC-SLP - 10:38 AM CDT JAMIE Camarena 08/22/2021 4:05 PM Flexible nasopharyngeal laryngoscopy Date/Time: 08/22/2021 10:38 AM Provider Information: Performed by: SUKHDEEP Camarena Authorized by: OUMAR [employer] First Crusher present?: no Indications: Indications: videostroboscopy Pre-Procedure Note: stores naval: no Pre-procedure patient condition: coher ent Procedure [...] COVID19 (SARS Not Detected Not Detected [facility] CoV-2) Result Comment: CANCER CENTER This test [...] fact sheet for patients provided by the shingle packer ( [employer]) can be reviewed at: https://www.fda.gov/media/13 6048/download. A fact sheet for Health Care providers is provided by the shingle packer ([employer], [employer]) and can be reviewed at: https://www.fda.gov/media/309579/download Results must be interpreted within the context [...] were verified by the Microbiology Laboratory at [facility], CLIA Accreditation #: [id number] and CAP Accreditation #: [id number]. COVID19 SARS ASSEMBLY ADJUSTER Swab [facility] CANCER CENTER COVID19 SARS Pre-Out of OR [facility] Indication Procedure CANCER CENTER Specimen Nasopharyngeal Swab Performing Organization Address City/State/ZIP Code Phon e Number [facility] CANCER Unless otherwise noted, [place] [address] CENTER all lab tests performed by: Division of Pathology and Laboratory Medicine [address] Echocardiogram 2D Complete (07/11/2021 4:16 PM PAVING BLOCK CUTTER) Specimen Narrative ISCV - 07/11/2021 4:19 PM PAVING BLOCK CUTTER Echocardiographic Report Interpretation Summary A complete two-dimensional [...] volumes were not performed in this [facility]. Cardiac Mechanics/Speckle Tracking Imagi ng: Speckle tracking [...] (ABNORMAL) Troponin T (In-House) (07/10/2021 6:09 AM PAVING BLOCK CUTTER)Only the most recent of4 resultswithin the time period is included. Pathologist Sig nature Troponin T 37 (H) <=18 ng/L [facility] [facility] Comment: CAN[facility]ER CENTER < 19 ng/L Suggest [...] low results. Specimen Blood Performing Organization Address City/[facility] Code Phon e Number [facility] CANCER Unless otherwise noted, [address] all lab tests performed by: Division of Pathology and Laboratory Medicine [address] [facility] (ABNORMAL) Calcium Ionized, Venous (07/09/2021 10:35 PM PAVING BLOCK CUTTER) Pathologist Sig nature V Ion Ca 0.96 (L) 1.15 - 1.29 mmol/L [facility] Specimen Blood Performing Organization Address [facility] Phon e Number [facility] Unless otherwise noted, [address] all lab tests performed by: Division of Pathology and Laboratory Medicine [address] [employer] (ABNORMAL) Lower Respiratory Culture w/Gram Stain (07/09/2021 5:33 PM PAVING BLOCK CUTTER) Final Report Normal site shayna present. [facility] Generally of low significance. CANCER CHARLIE TER Correlate with clinical data and culture history. (A) Path Review The results have been review ed and electronically signed by Pathologist: [facility] BERTA BRADY MD #[id number] CANCER CENTE R (A) Gram Stain Report Moderate WBC's seen [facility] Epithelial cells seen CANCER CENTER Moderate Gram Positive Cocci Moderate Gram Variable Madan (A) Specimen Sputum Induced Performing Organization Address [facility] Phon e Number [facility] Unless otherwise noted, [address] all lab tests performed by: Division of Pathology and Laboratory Medicine [address] Vascular Access Ultrasound- VAP RN Device (07/09/2021 3:00 PM PAVING BLOCK CUTTER) Anatomical Region Laterality Modality Vascular Ultrasound Specimen Narrative Systemgenerated, Documentation - 022 3:00 PM PAVING BLOCK CUTTER This procedure requires no interpretatio n from the radiologist. Legionella Urine Antigen Path Review (07/08/2021 5:17 PM PAVING BLOCK CUTTER) Legionella Urine Negative for L. pneumophila serogroup 1 antigen, suggesting no recent or current infection. However, infection due to other serogroups and species of Legionella are not detected by this assay. In additi [facility] Antigen Path on, antigen may not be present in the urine in e [facility] Review infection and the level of antigen present in the urine may be below the detection limit of the test. ... Reviewed and Electronically signed by Pathologist: Amaury Sinha MD, PhD #[id number] Comment: AMAURY SINHA MD, PhD - [id number] Dictated by: AMAURY SINHA MD, PhD - [id number] Dictated Date/Time: 07.11.19 1:11 AM PAVING BLOCK CUTTER Transcribed Date/Time: 07.11.2021 1:11 AM PAVING BLOCK CUTTER Electronically Signed By: ANIYAH SINHA MD, PhD - [id number] on 07.11.2021 1:11 AM C Specimen Urine Performing Organization Address City/State/ZIP Code Phon e Number [facility] CANCER Unless otherwise noted, [address] all lab tests performed by: Division of Pathology and Laboratory Medicine [address] [place] [address] [place] Streptococcal Urine Antigen Path Review (07/08/2021 5:17 PM PAVING BLOCK CUTTER) Streptococcal Urine Presumptive negative for S. pneumoniae antigen in urine, suggesting no current or recent pneumococcal infection. Infection due to S. pneumoniae cannot be ruled out since the level of antigen present in [facility] Antigen Path Review the urine may be below the detection limit o f the [facility] test. ... Reviewed and Electronically signed by Pathologist: Amaury Sinha MD, PhD #[id number] Comment: AMAURY SINHA MD, PhD - [id number] Dictated by: AMAURY SINHA MD, PhD - [id number] Dictated Date/Time: 07.11.19 1:11 AM PAVING BLOCK CUTTER Transcribed Date/Time: 07.11.2021 1:11 AM PAVING BLOCK CUTTER Electronically Signed By: ANIYAH SINHA MD, PhD - [id number] on 07.11.2021 1:11 AM C Specimen Urine Performing Organization Address [facility] Phon e Number [facility] CANCER Unless otherwise noted, [address] all lab tests performed by: Division of Pathology and Laboratory Medicine [address] [place] [address] [place] Streptococcus pneumoniae Urine Antigen (07/08/2021 5:17 PM PAVING BLOCK CUTTER) Pathologist [facility] Streptococcal Urine Presumptive negative for S. pneumoniae antigen in the urine, suggesting no current or recent pneumococcal infection. However, infection due to S. pneumoniae cannot be completely ruled out since the leve [facility] Antigen Interpretation l of antigen present in the urine may be below the [facility] detection limit of the test. Streptococcal Urine Negative [facility] Antigen Interpretation [facility] Specimen Urine Performing Organization Address [facility] Phon e Number [facility] Unless otherwise noted, [address] all lab tests performed by: Division of Pathology and Laboratory Medicine [address] [place], [place] [address] Legionella Urine Antigen (07/08/2021 5:17 PM PAVING BLOCK CUTTER) Pathologist [facility] Legionella Urine Negative for L. pneumophila serogroup 1 antigen, suggesting no recent or current infection. However, infections due to other serogroups and species of Legionella are not detected by this assay. In addition, antigen may not be present in the urine in [facility] Antigen Interpretation early infection and the leve l of antigen present in the urine may be below the detection limit of the test. CANCER C ENTER Legionella Urine Negative [facility] Antigen Interpretation [facility] Specimen Urine Performing Organization Address [facility] Phon e Number [facility] CANCER Unless otherwise noted, [address] all lab tests performed by: Division of Pathology and Laboratory Medicine [address] [place], [place] [address]d General Laboratory Add-On Test (07/08/2021 3:35 PM PAVING BLOCK CUTTER) Pathologist Sig nature Ordered Test Added [facility] Test Needed Procalcitonin [facility] Specimen Existing Performing Organization Address City/[facility] Phon e Number [facility] CANCER Unless otherwise noted, [address] all lab tests performed by: Division of Pathology and Laboratory Medicine [address] MRSA Screening Culture (07/08/2021 3:23 PM PAVING BLOCK CUTTER) Final Report No Methicillin resistant [facility] Staphylococcus aureus CANCER CENTER isolated. Path Review Culture yield may be affecte d by sample quality, prior treatment, and transportation conditions. [facility] ... [facility]ER CENTER The results have been reviewed and electronically sign ed by Pathologist: Amaury Sinha MD, PhD #[id number] Specimen Nasal Performing Organization Address City/State/ZIP Code Phon e Number [facility] CAN[facility]ER Unless otherwise noted, [address] all lab tests performed by: Division of Pathology and Laboratory Medicine [address] Chest Pulmonary Embolism with Contrast (07/08/2021 1:38 PM PAVING BLOCK CUTTER) Anatomical Region Laterality Modality Chest Computed Tomography Specimen Impressions [id number] - 07/08/2021 2:09 PM PAVING BLOCK CUTTER There are no pulmonary emboli. There are new findings in the left lower lobe raising the possibility of aspiration/pneumonia. Narrative [id number] - 07/08/2021 2:09 PM PAVING BLOCK CUTTER FULL RESULT: Examination: CT CHEST PULMONARY EMBOLISM [...] Organization Address City/State/ZIP Code Phon e Number [id number] XR Abdomen AP (07/08/2021 1:31 PM PAVING BLOCK CUTTER) Anatomical Region Laterality Modality Abdomen Digital Radiography Specimen Impressions [id number] - 07/08/2021 1:34 PM PAVING BLOCK CUTTER Feeding tube tip overlying the gastric f undus. Recommend further advancement. Narrative [id number] - 07/08/2021 1:34 PM PAVING BLOCK CUTTER FULL RESULT: Examination: XR ABDOMEN AP on [...] further advancement. Performing Organization Address City/State/ZIP Code Betsy abbasi Number [id number] (ABNORMAL) POC Chem 8 without Hemoglobin and Hematocrit (07/08/2021 12:14 PM PAVING BLOCK CUTTER) POC NA 131 (L) 138 - 146 [...] Clean Dev Yes POC [facility]: [facility], [address] [place] [address]; Breakdown Man: Loida Chavez MD Specimen Blood Performing Organization Address City/State/ZIP Code Phon e Number POC [facility] POC Critical (07/08/2021 12:14 PM PAVING BLOCK CUTTER) Pathologist Sig nature POC Critical Comment See NoteComment: POC [facility] Test performer notified Ordering Licensed Provider and /or designee of POC Potassium critical Results. Specimen Blood Performing Organization Address City/State/ZIP Code Phon e Number POC [facility] (ABNORMAL) Procalcitonin (07/08/2021 12:13 PM PAVING BLOCK CUTTER) Procalcitonin 0.15 (H) <=0.08 ng/mL [facility] Comment: [facility] Procalcitonin > 2.00 ng/mL: Procalcitonin levels above [...] with extended dilution as it exceeds the shingle packer's recommended limit. Caution should be exercised when interpreting such values and done in conjunction with clinical context. Specimen Blood Performing Organization Address City/[facility] Phon e Number [facility] CANCER Unless otherwise noted, [place] [address] [address] all lab tests performed by: Division of Pathology and Laboratory Medicine [address] (ABNORMAL) Cardiac Panel (07/08/2021 12:13 PM PAVING BLOCK CUTTER) CK 112 39 - 308 U/L [facility] CK MB 2.4 <=10.4 ng/mL [facility] Troponin T 36 (H) <=18 ng/L [facility] Comment: [facility] < 19 ng/L Suggest retest at 3 [...] low results. Specimen Blood Performing Organization Address City/[facility]/ZIP Code Phon e Number [facility] Unless otherwise noted, [address] all lab tests performed by: Division of Pathology and Laboratory Medicine [address] [place] (ABNORMAL) D Dimer (07/08/2021 12:13 PM PAVING BLOCK CUTTER) D-Dimer 0.77 (H) 0.10 - 0.50 [facility] Comment: mcg/ml FEU [facility] Rechecked and Verified The cut off value for exclusion of venous thromboembol ism is <0.51 mcg/mL FEUs (fibrinogen equivalent units). Specimen Blood Performing Organization Address City/[facility] Code Phon e Number [facility] Unless otherwise noted, [address] all lab tests performed by: Division of Pathology and Laboratory Medicine [address] [place] X-ray Chest 1 View (07/08/2021 11:38 AM PAVING BLOCK CUTTER) Anatomical Region Laterality Modality Chest Digital Radiography Specimen Impressions [id number] - 07/08/2021 11:41 AM PAVING BLOCK CUTTER No acute infiltrates are visualized. Narrative [id number] - 07/08/2021 11:41 AM PAVING BLOCK CUTTER FULL RESULT: Examination: XR CHEST 1 VW, [...] acute infiltrates are visualized. Performing Organization Address [facility] Code Phon e Number [id number] CT Head without Contrast (07/08/2021 11:05 AM PAVING BLOCK CUTTER) Anatomical Region Laterality Modality Head Computed Tomography Specimen Impressions [id number] - 07/08/2021 11:37 AM PAVING BLOCK CUTTER No acute intracranial abnormality. Narrative [id number] - 07/08/2021 11:37 AM PAVING BLOCK CUTTER FULL RESULT: EXAMINATION: CT HEAD WO CONTRAST [...] No acute intracranial abnormality. Performing Organization Address [facility] Code Phon e Number [id number] (ABNORMAL) NT-Pro BNP (In-House) (06/22/2021 11:54 AM PAVING BLOCK CUTTER) Pathologist Sig nature NT ProBNP 1,199 (H) <=125 pg/mL [facility] Specimen Blood Performing Organization Address City/[facility]/ZIP Code Phon e Number [facility] CANCER Unless otherwise noted, [address] all lab tests performed by: Division of Pathology and Laboratory Medicine [address] [facility] CKMB (06/22/2021 11:54 AM PAVING BLOCK CUTTER) Pathologist Sig nature CK MB 2.6 <=10.4 ng/mL [facility] Specimen Blood Performing Organization Address City/State/ZIP Code Phon e Number [facility] CANCER Unless otherwise noted, [address] all lab tests performed by: Division of Pathology and Laboratory Medicine [facility] Creatine Kinase (06/22/2021 11:54 AM PAVING BLOCK CUTTER) Pathologist Sig nature CK 84 39 - 308 U/L [facility] Specimen Blood Performing Organization Address City/[facility]/ZIP Code Phon e Number [facility] Unless otherwise noted, [address] all lab tests performed by: Division of Pathology and Laboratory Medicine [facility] CT Head/Neck Simulation without Contrast (06/21/2021 9:00 AM PAVING BLOCK CUTTER)Only the most recent of2 resultswithin the time period is included. Anatomical Region Laterality Modality Head, Neck Computed Tomography Specimen Narrative Systemgenerated, Documentation - 022 9:00 AM PAVING BLOCK CUTTER This procedure requires no interpretatio n from the radiologist. COVID-19 (MAURA-CoV-2) PCR Asymptomatic (05/11/2021 9:05 AM PAVING BLOCK CUTTER)Only the most recent of2 resultswithin the time period is included. COVID19 SARS Pre-Out of OR [facility] Indication [facility] CANCER [place] COVID19 SARS Result Not Detected Not Detected [facility] COVID19 SARS SARS-CoV-2 NOT Detected. [facility] Interpretation [facility] CENTER Reference Range: Not Detected Methodology: The [employer] Real Time SARS-CoV-2 assay is a qualitative real-time reverse sales contracts analyst polymerase chain reaction (machine lay out worker-PCR) test to detect RNA from SARS-CoV-2 in nasal, nasopharyngeal and oropharyngeal swabs from patients with signs and symptoms of infection who ar e suspected of COVID-19 by their health care provider. The [employer] RealTime SARS-CoV-2 performed on the [employer] m2000 System is a dual target assay [...] high- complexity Molecular Diagnostics Laboratory (MDL) at [facility] under the Food and Drug Administration (FDA) s Emergency Use Authorization. Factsheet for patients: https://www.mdanderson.org/Abb ottFactSheetPatients Factsheet for healthcare pro viders: https://www.mdanderson.org/AbbottFactSheetHCP Test performed by: [facility] [address] [place] [address] Specimen Nasopharyngeal Swab Performing Organization Address City/State/ZIP Code Phon e Number [facility] CANCER Unless otherwise noted, [place] [address] CENTER all lab tests performed by: Division of Pathology and Laboratory Medicine [address] Orthopantogram (05/06/2021 10:53 AM PAVING BLOCK CUTTER) Anatomical Region Laterality Modality Other Specimen Narrative Systemgenerated, Documentation - 021 10:53 AM PAVING BLOCK CUTTER This procedure requires no interpretatio n from the radiologist. TIRE REBUILDER Videostroboscopy (05/06/2021 9:58 AM PAVING BLOCK CUTTER) Narrative OLYMPUS - 05/06/2021 9:58 AM PAVING BLOCK CUTTER Sara Harris, PhD 05/06/2021 10:12 AM TIRE REBUILDER Videostroboscopy Laterality (if applicable): right Date/Time: 05/06/2021 [...] Number OLYMPUS Glucose, Random (05/04/2021 11:10 AM PAVING BLOCK CUTTER) Glucose Random 136 70 - 199 mg/dL [facility] Comment: CANCER CENTER Effective 12/29/15, the gluco se reference intervals have been updated based on [place] Diabetes Association guidelines (Standards of Medical Care in Diabetes 2016. Diabetes Care 2016; 39: S13-S22). Fasting blood glucose: Normal: 70-99 mg/dL Impaired fasting glucose (in creased risk for diabetes or pre-diabetes): 100- 125 mg/dL Diabetes mellitus: >/=126 mg/dL Random blood glucose: Normal: 70-199 mg/dL Note: Random glucose >100 mg/dL is assoc iated with increased risk for diabetes Specimen Blood Narrative [facility] CANCER CENTER - 12:55 PM PAVING BLOCK CUTTER Not fasting Performing Organization Address City/[facility]/ZIP [facility] Phon e Number [facility] CANCER Unless otherwise noted, [address] all lab tests performed by: Division of Pathology and Laboratory Medicine [address] [place] [address] Vitamin D 25OH (05/04/2021 11:10 AM PAVING BLOCK CUTTER) Vitamin D 25 OH 42 30 - 100 ng/mL [facility] Comment: [facility] Reference Range: Deficiency: <10 ng/mL Insufficiency: 10-29 ng/mL Sufficiency: 30-100 ng/mL Potential toxicity: >100 ng/mL Specimen Blood Performing Organization Address City/[facility]/ZIP [facility] Phon e Number [facility] CANCER Unless otherwise noted, [address] all lab tests performed by: Division of Pathology and Laboratory Medicine [address] [place] [address] [place] TMP HCV Ab Path Interp (05/03/2021 8:26 AM PAVING BLOCK CUTTER) HCV Ab Path There is NO serologic evidence of Hepatitis C vi autumn antibody. SELAM CAMEJO DONOR Interp Comment: CENTER RUFINO FERNANDEZ, Dictated by: RUFINO FERNANDEZ, Dictated Date/Time: 05.04.20 6:33 AM PAVING BLOCK CUTTER Transcribed Date/Time: 05.04.2021 6:33 AM PAVING BLOCK CUTTER Electronically Signed By: RUFINO FERNANDEZ, on 1 07.05.2020 6:33 AM C Specimen Blood Performing Organization Address [facility] Phon e Number [facility] [address] [place] [address] Hepatitis C Virus Ab (05/03/2021 8:26 AM PAVING BLOCK CUTTER) HCVAb. Non Reactive Non Reactive [facility] Comment: CENTER Antibody detection in the im munocompromised and immunosuppressed population may be delayed or absent entirely. Therefore serial testing, correlation with other clinical findings, and supplemental testin g (if available) should be taken into consideration when interpreting the results. Performed at: [facility] [address] [place] [address] Specimen Blood Performing Organization Address [facility] Phon e Number [facility] [address] [place] [address] TSH (05/03/2021 8:26 AM PAVING BLOCK CUTTER) Pathologist Sig nature TSH 3.71 0.27 - 4.20 mcunit/mL [facility] CAN ER CENTER Specimen Blood Performing Organization Address [facility] Phon e Number [facility] CANCER Unless otherwise noted, [address] all lab tests performed by: Division of Pathology and Laboratory Medicine [address] Free T4 (05/03/2021 8:26 AM PAVING BLOCK CUTTER) Pathologist Sig nature T4 Free 1.46 0.93 - 1.70 ng/dL [facility] CANCER C ENTER Specimen Blood Performing Organization Address [facility] Phon e Number [facility] CANCER Unless otherwise noted, [address] all lab tests performed by: Division of Pathology and Laboratory Medicine [address] Soft Tissue Neck with Contrast (05/03/2021 7:27 AM PAVING BLOCK CUTTER) Anatomical Region Laterality Modality Neck Computed Tomography Specimen Impressions [id number] - 05/03/2021 1:54 PM PAVING BLOCK CUTTER Supraglottic carcinoma, 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 Narrative [id number] - 05/03/2021 1:54 PM PAVING BLOCK CUTTER FULL RESULT: Examination: CT SOFT TISSUE NECK W CONTR AST on 05/03/2021 7:27 AM Clinical History: Untreated laryngeal ca rcinoma, status post biopsy elsewhere Indication: Baseline [facility] imaging assessment. Comparison: Outside PET/CT 04/07/2021 Technique: [...] rcinoma, status post biopsy elsewhere Indication: Baseline [facility] imaging assessment. Comparison: Outside PET/CT 04/07/2021 Technique: [...] Organization Address City/State/ZIP Code Phon e Number [id number] CT Chest with Contrast (05/03/2021 7:27 AM PAVING BLOCK CUTTER) Anatomical Region Laterality Modality Chest Computed Tomography Specimen Impressions [id number] - 05/03/2021 1:02 PM PAVING BLOCK CUTTER There are numerous small bilateral pulmo nary nodules that are likely secondary to inflammatory/ infectious process, however follow-up is recommended to evaluate resolution (3 months). Narrative [id number] - 05/03/2021 1:02 PM PAVING BLOCK CUTTER FULL RESULT: Examination: CT CHEST W CONTRAST, [...] Organization Address City/State/ZIP Code Phon e Number [id number] POC Creatinine (05/03/2021 6:56 AM PAVING BLOCK CUTTER) POC Crea 1.2 0.6 - 1.3 POC [...] 18 and older. According to the National [facility]'s Kidney Disease Outcome Quality [...] 18 and older. According to the National [facility]'s Kidney Disease Outcome Quality Initiative (KDOQI) classification [...] [facility] Radiology OP CTR [facility], [address] [place] [address]; Point of Care Breakdown Man: Brooke Owens MD Specimen Blood Performing Organization Address City/State/ZIP Code Phon e Number POC [facility] OSI PET CT Skull to Mid Thigh (04/07/2021 1:24 PM CDT) Anatomical Region Laterality Modality Head Other Specimen Narrative Systemgenerated, Documentation - 1:24 PM PAVING BLOCK CUTTER Study acquired at another institution. For comparison only. No MD Licea originated interpretation requested or a vailable. Pathology Outside Interpretation (03/28/2021) Pathologist Sig nature Materials Received Accession#, Stained, Block, Unstained Collect ed Received LOLITA Gamez [id number], 6 SS, 0 BLOCKS, 0 USS 03/28/2021 021 Addendum 1 Additional material received on 05/25/2021, Outside 0 SS, 3 BLOCK, 0 USS, collected on 03/28/2021. MD Nirmal [facility] Addendum electronically signed Deeper levels of block (21:I [id number]) were examined. The original diagnosis remains unchanged. by Rigo Pritchard MD on 06/13/2021 at 2 :17 PM Diagnosis Outside (21:[id number], 6 SS): [facility] E lectronically signed by Rigo Gallardo Larynx, right arytenoid, biopsy (A): MD Macho on SQUAMOUS CELL CARCINOMA, suspicious for invasion 04/21/2021 at 4:09 PM Larynx, left arytenoid, biopsy (B): Squamous mucosa with chronic inflammation, negative fo r tumor Larynx, left false vocal cord, biopsy (C): Squamous mucosa and minor salivary gland, negative for tumor [facility]/N Licensed Mental Health Counselor(s) Dr. Marisela Hollingsworth [facility] has reviewed part A and concurs. Biomarker Block(s) T: A [facility] N: C Disclaimer "Some tests reported [facility] here may have been developed and performance characteristics determined by [facility] Pathology and Laboratory Medicine. These tests have not been specifically cleared or approved by the U.S. Food and Drug Administration. If applicable, controls were reviewed and showed appropriate reactivity." Specimen Tissue Performing Organization Address City/State/ZIP Code Phon e Number [facility] [place] [address] [address] OSI Chest (03/24/2021 1:24 PM CDT) Anatomical Region Laterality Modality Chest Other Specimen Narrative Systemgenerated, Documentation - 021 1:24 PM PAVING BLOCK CUTTER Study acquired at another institution. For comparison only. No [facility] originated interpretation requested or a vailable. after 09/10/2020 Insurance Payer Benefit Plan Subscriber ID Effective Phone Address Typ e / Group Dates MEDICARE MEDICARE PART [id number] 2014-Prese [phone] [facility] Medicare A AND B nt 82 SOLUTIONS [address] [place] [address] [employer] OF [id number] 2015-Prese [id number] [facility] [place] [address] [phone] (Work) Roland Lam Personal/Family Self [address] (Home) [place] [address] Advance Directives Code Status Date Activated Date Inactivated Comments Full Code 08/26/2021 7:24 PM 08/31/2021 6:23 PM Full Code 08/25/2021 9:45 PM 08/26/2021 7:24 PM Full Code 07/08/2021 4:32 PM 07/12/2021 11:02 PM Care Teams Boiler Technician Relationship Specialty Start Date End Date Olivia Coleman DO PCP - External Otolaryngology 04/13/21 [address] [place], [place] [address] Slava Canseco, PCP - General Radiation Oncology 04/25/[address] [place] [id number] Yumi Desir MD Consulting Physician Head and Neck Medical 05/13/[address] [place] [address] [place] [address] Ene Polk MD Consulting Physician Head and Neck Surgery 05/13/[address] [place] [id number] Camilla Davenport, Clinical Dietitian Nutrition 07/19/[address] [place] [address] [address] [place] [address] Anca Maurer, Nurse Practitioner Head and Neck Medical 08/15/21 MANAGER TALENT MANAGEMENT Oncology [address] [place] [phone] Michael Lam, Consulting Physician Gastroenterology, 09/05/21 Hepatology and Nutrition [address] [place] [address] Brady Payan, Consulting Physician Gastroenterology, 09/07/21 Hepatology and Nutrition [address] [place] [address]
--- OUTSIDE RECORDS SUMMARY | 2021-09-10 11:41 | XMS REPORT | Continuity of Care Document ---
:1950 Author Organization [facility] t Address [address] [place]. [address] [place] [id number] Care Team Providers Name Role Phone [phone] Primary Care Physician Unavailable ZANDRA Attending Clinician Unavailable Arnaldo Bullard Attending Clinician Unavailable SYSTEM, NOT IN Attending Clinician Unavailable Kaci H Attending Clinician Unavailable Alok Ariza MD Attending Clinician Ethel BOWEN A Attending Clinician ALOK ARIZA Attending Clinician Unavailable Andres CCC-PRIMER INSERTING MACHINE OPERATOR, H Attending Clinician Cathleen CCC-PRIMER INSERTING MACHINE OPERATOR, L Attending Clinician Unavailable Laurie Maurer APN Attending Clinician Eunice OSEGUERA Attending Clinician EUNICE Attending Clinician Unavailable Dejan BOWENS, J Attending Clinician Unavailable Edvin CRAWLEY B Attending Clinician Elza Ferrell MD Attending Clinician Nirmal Rain MD. Attending Clinician Wendi CRAWLEY Attending Clinician Rajendra Brooks MD Attending Clinician Rachid CRAWLEY Attending Clinician Sienna CRAWLEY Attending Clinician SIENNA Attending Clinician Unavailable Miguel Lam MD. Attending Clinician Callum CCC-PRIMER INSERTING MACHINE OPERATOR, M Attending Clinician Unavailable Duran Deras MD. Attending Clinician Delbert MATHUR Attending Clinician Rhina TORO Attending Clinician Unavailable Harman BARRIGA Attending Clinician Miguel PEREZ Attending Clinician Unavailable Carina CCC-PRIMER INSERTING MACHINE OPERATOR Attending Clinician Gloria BOWENS, M Attending Clinician Miguel Buck Attending Clinician Stephanie TALBOT-PRIMER INSERTING MACHINE OPERATOR, M Attending Clinician Unavailable Miguel Reyes RN. Attending Clinician Unavailable Piero CRAWLEY Attending Clinician Fermin Attending Clinician GERDA Attending Clinician Unavailable Gerda CRAWLEY Attending Clinician Christina CRAWLEY Attending Clinician Maryse Knight MD Attending Clinician Zandra CRAWLEY Attending Clinician WENDI Attending Clinician Unavailable Leobardo BOWENS Attending Clinician Leela BOWENS, S Attending Clinician Unavailable Nancy RD, K Attending Clinician Kp BOWENS, Thomas Rivera Attending Clinician Unavailable Yajaira BOWENS Attending Clinician Unavailable Marisela Bonilla MD Attending Clinician Francisco BOWENS, C Attending Clinician Unavailable Kerline Arrington Attending Clinician PADMINI Attending Clinician Unavailable JEREL Attending Clinician Unavailable Jerel CRAWLEY Attending Clinician Katie BOWENS, B Attending Clinician Unavailable Savannah Polk PharmD Attending Clinician Samantha POLK Attending Clinician Unavailable Jam CRAWLEY, Samantha Attending Clinician Kathy CCC-PRIMER INSERTING MACHINE OPERATOR, E Attending Clinician Katty BOWENS, N Attending Clinician Unavailable Melvina CRAWLEY, Skinny Attending Clinician SHAGUFTA PRUITT Attending Clinician Unavailable Favio CRAWLEY, Shagufta Attending Clinician Maine CRAWLEY Attending Clinician MAINE Attending Clinician Unavailable JANAE Attending Clinician Unavailable Galo BOWENS Attending Clinician Unavailable Jacob BOWENS, J Attending Clinician Unavailable Patrick CRAWLEY, Dulce Attending Clinician Rico [facility]-PRIMER INSERTING MACHINE OPERATOR, H Attending Clinician Unavailable Melita OSEGUERA Attending Clinician Denny GARCIA Attending Clinician Unavailable Travis, R Attending Clinician Unavailable Zahra CRAWLEY PhD, Diana Attending Clinician BRAD Attending Clinician Unavailable MED Attending Clinician Unavailable Med CRUZ Attending Clinician Steven PhD, A Attending Clinician Josse CRAWLEY, Vadim Attending Clinician Darrick RN, A Attending Clinician Troy CRAWLEY, Mallika Attending Clinician Ezra CRAWLEY, Rhina Attending Clinician Dawit CRAWLEY Attending Clinician WENDI Admitting Clinician Unavailable MARYSE KNIGHT Admitting Clinician Unavailable Payers Payer Name Policy Type Policy Number Effective Date Expiration Date S ource MEDICARE PART A [id number] 2014 AND B 00:00:00 ENNICE BETTY PEPPER [id number] 2015 00:00:00 Problems Condition Condition Condition Status Onset Resolution Last Treating Co mments Source Name Details Category Date Date Treatment Clinician Date Melena Melena Disease Active 2021- 3- Anderso 00:00: n 00 Anemia Anemia Disease Active 2021-0 3-24 Anderso 00:00: n 00 Aspiration Aspiration Disease Active 2021-0 M D pneumonia pneumonia 2-06 Arthur rso 00:00: n 00 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 06-29 Yue kennedy 00:00: n malnutriti malnutriti 00 on on Swallowing Swallowing Disease Active M D painful painful 06-08 Anderso 00:00: n 00 Hypomagnes Hypomagnes Disease Active M D emia emia 06-08 Anderso 00:00: n 00 Bilateral Bilateral Disease Active MD tinnitus tinnitus 06-08 Chucky o 00:00: n 00 Neuropathy Neuropathy [...] n 00 Chronic Chronic Disease Recurre 2015-06 MD obstructiv obstructiv nce 1-23 An derso e e 00:00: n pulmonary pulmonary 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 1-22 Chucky o mellitus mellitus 00:00: n without without 00 complicati complicati on on Acute Acute Disease Resolve 2021-08-27 2021-08-27 hypoxemic hypoxemic d 2-06 00:00:00 14:15:25 Anderso respirator respirator 00:00: n y failure y failure 00 Disorder Disorder Disease Resolve 2021-08-27 2021-08-27 MD of fluid of fluid d 2- 00:00:00 14:15:36 An derso AND/OR AND/OR 00:00: n electrolyt electrolyt 00 e e Syncope Syncope Disease Resolve 2021-08-27 2021-08-27 d 2-04 00:00:00 14:15:54 Chucky o 00:00: [...] 00 Iron Iron Disease Resolve 2021-06-29 2021-06-29 deficiency deficiency d 06-29 00:00:00 13:44:54 Anderso [...] Active Info Not [facility] Reaction Available [facility] Family History Family [...] mouth tablet every morning before breakfast. tadalafil No 20mg Take 20 mg M D (CIALIS) 20 3-28 03-28 by mouth. An derso mg tablet 13:49: 00:00 n 25 :00 gabapentin Yes Neuropathic TAKE ONE MD (NEURONTIN) 3-21 pain (1) Anderso 300 mg 00:00: CAPSULE(S) n capsule 00 BY MOUTH THREE TIMES A DAY. HYDROcodone Yes Oral 1{tbl} Take 1-2 MD -acetaminop 3-13 mucositis tablets by Anderso hen (Ceres) 00:00: due to mouth n 5 mg-325 [...] Yes Essential 10mg Give 1 MD (NORVASC) -09 hypertensio tablet (10 Anderso 10 mg 00:00: n mg) per n tablet 00 NG-tube daily. folic acid Yes Folate 1mg Take 1 MD (FOLVITE) 1 2-09 deficiency tablet (1 Anderso mg tablet 00:00: mg) by n 00 mouth daily. thiamine Yes Hypophospha 100mg Take 1 MD (VITAMIN 2- temia tablet Anderso B-1) 100 mg 00:00: [...] packet of the powder in 2 and /2 ounces (75 mL) of water or juice. Stir until completely dissolved and drink the mixture right away after mixing. Do not save for later use. potassium Yes Hypokalemia 40meq Give 30 mL MD chloride 2-08 (40 mEq) Anderso (KAYCIEL) 00:00: per n 20 mEq/15 00 NG-tube mL solution daily. amoxicillin 2021- No Aspiration 875mg Take 1 MD -clavulanat 2-12 pneumonia tablet Anderso e 00:00: 05:59 (875 [...] day. rosuvastati Yes daily. MD n (CRESTOR) 1-22 Anderso [...] Hypomagnese 500mg Take 1 MD oxide 500 06-15 kaylen tablet Anderso mg tablet 00:00: (500 mg) n 00 by mouth daily. traMADol 2021- No Oral 50mg Take 1 MD (ULTRAM) 50 06-15 mucositis tablet (50 Anderso mg tablet 00:00: [...] Nicotine Apply 2 MD 21 mg/24 hr 1 03-03 dependence patch to Anderso transdermal 00:00: 00:00 skin and n patch 00 :00 change patch daily as directed for tobacco cessation (alternate sites). triamcinolo 2020-06 Yes Radiation 1{appli Apply 1 MD ne 07-26 dermatitis cation} applicatio Anderso (KENALOG) 00:00: n n ointment 00 topically 0.1% to affected area(s) twice daily. gabapentin 2020-06- No Neuropathic 300mg Take 1 MD (Neurontin) 07-26- pain capsule Arthur rso 300 mg 00:00: [...] Nicotine Apply 1 MD 21 mg/24 hr 2 01-05 dependence patch to Anderso transdermal 00:00: 00:00 skin and n patch 00 :00 change patch daily as directed for tobacco cessation (alternate sites). fluoride, 2020-06 Yes Accretion Apply to sodium, 2-03 on teeth teeth Anderso (PREVIDENT) 00:00: twice n 1.1 % 00 daily. [facility] [place] cream teeth with cream and spit out [...] :00 BY MOUTH ONCE A DAY. diazePAM 2020-06 [...] 2021- No TAKE ONE M D nanocrystal 9 03-30 (1) Anderso lized 00:00: 00:00 TABLET(S) n (TRICOR) 00 :00 BY MOUTH 145 mg ONCE A tablet DAY. Metformin Metformin Yes Na Bullard [address] [facility] HCl HCl 7-02 with a [facility] 00:[facility]: meal [facility] Montelukast Montelukast Yes Na Bullard [address] [facility] Sodium Sodium 4-21 [facility] - 00:[facility]: [facility] 00 [facility] ent [facility] ferrous Yes MD sulfate 3-15 Anderso (iron) 325 00:00: n mg (65 mg 00 elemental iron per tablet) tablet aspirin 81 2009-06 Yes 81mg Take 81 mg M D mg EC 1-22 by mouth. Anderso tablet 00:00: n 00 Cialis Cialis Yes Na Bullard [address] [facility] Metoprolol Metoprolol Yes Na Bullard [address] [facility] Tartrate Tartrate with food [facility] - [facility] ent Clinics Dexilant Dexilant Yes Na Bullard TAKE ONE [facility] (1) [facility] - CAPSULE(S) Memoria BY MOUTH l ONCE A Outpati DAY. ent Clinics Plavix Plavix Yes Na Bullard [address] [facility] Plavix Plavix Yes Na Bullard [address] [facility] Ventolin Ventolin Yes Na Bullard [address] [facility] HFA HFA needed [facility] Nicotine Nicotine Yes Na Bullard [address] [facility] Step 1 Step 1 skin [facility] Cetirizine Cetirizine Yes Na Bullard [address] [facility] HCl HCl [facility] Cetirizine Cetirizine Yes Na Bullard TAKE ONE [facility] HCl HCl (1) [facility] - TABLET(S) Memoria BY MOUTH l ONCE A [facility] DAY. ent Clinics Simvastatin Simvastatin Yes Na Bullard [address] [facility] in the [facility] - evening [facility]ics Nystatin Nystatin Yes Na Bullard [address] [facility] Fenofibrate Fenofibrate Yes Na Bullard [address] [facility] with food [facility] Symbicort Symbicort Yes Na Bullard [address] [facility] Flonase Flonase Yes Na Bullard [address] [facility] each [facility] nostril [facility] Immunizations Ordered Immunization Filled Immunization Date Status Commen ts Source Name Name Moderna SARS-CoV-2 2021-04-16 Completed MD And erson Booster Vaccination 00:00:00 (50 mcg/0.25 mL) Moderna SARS-CoV-2 2020-08-07 Completed MD And erson Vaccination 00:00:00 Moderna SARS-CoV-2 2020-07-10 Completed MD And erson Vaccination 00:00:00 Vital Signs Vital Name Observation Time Observation Value Comments Source Systolic blood pressure 2021-08-31 18:09:19 140 mm[Hg] MD Dorantes Diastolic blood pressure 2021-08-31 18:09:19 55 mm[Hg] MD Dorantes Heart rate 2021-08-31 18:09:19 89 /min MD Patel son Body temperature 2021-08-31 18:09:19 36.28 Yocasta MD Nirmal larson Respiratory rate 2021-08-31 18:09:19 20 /min MD Nirmal larson Oxygen saturation in 2021-08-31 18:09:19 96 /min MD Dorantes Arterial blood by Pulse oximetry Body weight 2021-08-31 09:07:19 64.9 kg MD Patel son BMI 2021-08-31 09:07:19 24.43 kg/m2 MD Patel son Body height 2021-08-27 02:25:00 163 cm MD Jorge bundy Procedures Procedure Date / Time Performed Performing Clinician Sour e POC GLUCOSE SCREEN 2021-08-31 15:15:00 Davis El MD on BASIC METABOLIC PANEL, 2021-08-31 09:26:00 Thoppil, Leida larson CALCIUM TOTAL MAGNESIUM LEVEL 2021-08-31 09:26:00 ThoppilLeida MD PHOSPHORUS LEVEL 2021-08-31 09:26:00 ThoppilLeida MD Andreginaldo n COMPLETE BLOOD COUNT W/ 2021-08-31 09:26:00 ThoppilLeida MD DIFFERENTIAL GLUCOSE LEVEL 2021-08-31 09:26:00 ThoppiLeida cole MD BLOOD UREA NITROGEN 2021-08-31 09:26:00 ThoppilLeida MD Arthur rson ELECTROLYTE PANEL 2021-08-31 09:26:00 ThcalderonpiLeida cole MD on SERUM CREATININE 2021-08-31 09:26:00 ThoppilLeida MD Andreginaldo n .GLOMERULAR FILTRATION RATE 2021-08-31 09:26:00 ThoppiLeida cole MD CALCIUM LEVEL TOTAL 2021-08-31 09:26:00 ThoppilLeida MD Arthur rson Results CBC 2021-08-31 09:26:00 ThoppiLeida cole MD MANUAL DIFFERENTIAL 2021-08-31 09:26:00 ThoppiLeida cole MD Arthur rson POC GLUCOSE SCREEN 2021-08-31 03:06:00 Davis El MD on POC GLUCOSE SCREEN 2021-08-30 21:50:00 Davis El MD on FL MODIFIED BARIUM SWALLOW W 2021-08-30 20:15:38 Robert Rashid MD SPEECH POC GLUCOSE SCREEN 2021-08-30 17:35:00 FortDavis davis MD on POC GLUCOSE SCREEN 2021-08-30 12:52:00 Davsi El MD on BASIC METABOLIC PANEL, 2021-08-30 09:36:00 Thoppil, Leida poolrson CALCIUM TOTAL MAGNESIUM LEVEL 2021-08-30 09:36:00 Thoppil, Leida Dorantes PHOSPHORUS LEVEL 2021-08-30 09:36:00 Thoppil, Leida Hargrove MD Andreginaldo amanda COMPLETE BLOOD COUNT W/ 2021-08-30 09:36:00 Thoppil, Leida Dorantes DIFFERENTIAL GLUCOSE LEVEL 2021-08-30 09:36:00 Thoppil, Leida Dorantes BLOOD UREA NITROGEN 2021-08-30 09:36:00 Thoppil, Leida Hargrove MD Arthur rson ELECTROLYTE PANEL 2021-08-30 09:36:00 Thoppil, Leida Locke on SERUM CREATININE 2021-08-30 09:36:00 Thoppil, Leida patel .GLOMERULAR FILTRATION RATE 2021-08-30 09:36:00 Thoppil, Leida Dorantes CALCIUM LEVEL TOTAL 2021-08-30 09:36:00 Thoppil, Leida Hargrove MD Arthur rson Results CBC 2021-08-30 09:36:00 Thoppil, Leida Dorantes MANUAL DIFFERENTIAL 2021-08-30 09:36:00 ThoppilLeida MD Arthur rson POC GLUCOSE SCREEN 2021-08-30 03:07:00 Davis El MD on XR ABDOMEN 1 VW PORTABLE 2021-08-29 23:11:44 Davis El MD POC GLUCOSE SCREEN 2021-08-29 22:46:00 Davis El MD on POC GLUCOSE SCREEN 2021-08-29 21:32:00 Davis El MD on PATHOLOGY BIOPSY 2021-08-29 19:14:00 Michael Lam MD INTERPRETATION DIAGNOSTIC UPPER 2021-08-29 18:46:00 Michael Lam MD GASTROINTESTINAL ENDOSCOPY DIAGNOSTIC FLEXIBLE 2021-08-29 18:46:00 Michale Lam MD Arthur rson COLONOSCOPY PROXIMAL TO SPLENIC FLEXURE POC GLUCOSE SCREEN 2021-08-29 18:22:00 Davis El MD on POC GLUCOSE SCREEN 2021-08-29 15:21:00 Davis El MD on MANUAL DIFFERENTIAL 2021-08-29 10:31:00 Thoppil, Leida Hargrove MD Arthur rson BASIC METABOLIC PANEL, 2021-08-29 10:31:00 ThoppilLeida MDrsdeya CALCIUM TOTAL MAGNESIUM LEVEL 2021-08-29 10:31:00 ThoppilLeida MD PHOSPHORUS LEVEL 2021-08-29 10:31:00 Thoppil, Leida Hargrove MD Andreginaldo amanda COMPLETE BLOOD COUNT W/ 2021-08-29 10:31:00 ThoppilLeida MD DIFFERENTIAL PROTHROMBIN TIME 2021-08-29 10:31:00 Robert Rashid MD GLUCOSE LEVEL 2021-08-29 10:31:00 ThoppilLeida MD BLOOD UREA NITROGEN 2021-08-29 10:31:00 HildaoppilLeida MD Arthur rson ELECTROLYTE PANEL 2021-08-29 10:31:00 ThoppilLeida MD on SERUM CREATININE 2021-08-29 10:31:00 Thoppil, Leida Hargrove MD Andreginaldo n .GLOMERULAR FILTRATION RATE 2021-08-29 10:31:00 HildaoppiLeida cole MD CALCIUM LEVEL TOTAL 2021-08-29 10:31:00 HildaoppiLeida cole MD Arthur rson Results CBC 2021-08-29 10:31:00 Leida Frank MD POC GLUCOSE SCREEN 2021-08-29 02:15:00 Robert Rashid MD on POC GLUCOSE SCREEN 2021-08-28 21:24:00 Robert Rashid MD on POC GLUCOSE SCREEN 2021-08-28 13:49:00 Robert Rashid MD on BASIC METABOLIC PANEL, 2021-08-28 08:13:00 ThoppilLeida MD CALCIUM TOTAL MAGNESIUM LEVEL 2021-08-28 08:13:00 ThoppilLeida MD PHOSPHORUS LEVEL 2021-08-28 08:13:00 ThoppilLeida MD Andreginaldo amanda COMPLETE BLOOD COUNT W/ 2021-08-28 08:13:00 ThoppilLeida MD DIFFERENTIAL GLUCOSE LEVEL 2021-08-28 08:13:00 ThoppilLeida MD BLOOD UREA NITROGEN 2021-08-28 08:13:00 Thoppil, Leida Hargrove MD Arthur rson ELECTROLYTE PANEL 2021-08-28 08:13:00 HildaoppilLeida MD on SERUM CREATININE 2021-08-28 08:13:00 ThoppilLeida MD Andadele patel .GLOMERULAR FILTRATION RATE 2021-08-28 08:13:00 ThoppilLeida MD CALCIUM LEVEL TOTAL 2021-08-28 08:13:00 ThoppilLeida MD Arthur rson Results CBC 2021-08-28 08:13:00 ThoppilLeida MD MANUAL DIFFERENTIAL 2021-08-28 08:13:00 ThoppilLeida MD Arthur rson POC GLUCOSE SCREEN 2021-08-28 03:20:00 Robert Rashid MD on POC GLUCOSE SCREEN 2021-08-27 18:30:00 Robert Rashid MD on POC GLUCOSE SCREEN 2021-08-27 13:47:00 Robert Rashid MD on BASIC METABOLIC PANEL, 2021-08-27 09:47:00 ThoppilLeida MD CALCIUM TOTAL MAGNESIUM LEVEL 2021-08-27 09:47:00 ThoppilLeida MD PHOSPHORUS LEVEL 2021-08-27 09:47:00 ThoppilLeida MD Andreginaldo amanda COMPLETE BLOOD COUNT W/ 2021-08-27 09:47:00 ThoppilLeida MD DIFFERENTIAL GLUCOSE LEVEL 2021-08-27 09:47:00 Susan Tadeo MD And erson BLOOD UREA NITROGEN 2021-08-27 09:47:00 Susan Tadeo MD ELECTROLYTE PANEL 2021-08-27 09:47:00 Susan Tadeo MD A nderson SERUM CREATININE 2021-08-27 09:47:00 Susan Tadeo MD .GLOMERULAR FILTRATION RATE 2021-08-27 09:47:00 Susan Tadeo MD CALCIUM LEVEL TOTAL 2021-08-27 09:47:00 Susan Tadeo MD Results CBC 2021-08-27 09:47:00 Suasn Tadeo MD And erson MANUAL DIFFERENTIAL 2021-08-27 09:47:00 Susan Tadeo MD POC GLUCOSE SCREEN 2021-08-27 01:25:00 Susan Campos MD And erson POC GLUCOSE SCREEN 2021-08-26 21:49:00 Susan Campos MD And erson POC GLUCOSE SCREEN 2021-08-26 17:17:00 Olegario Rain MD nderson POC GLUCOSE SCREEN 2021-08-26 13:44:00 Olegario Rain MDrson BASIC METABOLIC PANEL, 2021-08-26 13:10:00 Leida Frank MD CALCIUM TOTAL MAGNESIUM LEVEL 2021-08-26 13:10:00 Leida Frank MD PHOSPHORUS LEVEL 2021-08-26 13:10:00 Leida Frank MD Anderso n COMPLETE BLOOD COUNT W/ 2021-08-26 13:10:00 Leida Frank MD DIFFERENTIAL GLUCOSE LEVEL 2021-08-26 13:10:00 Susan Tadeo MD And erson BLOOD UREA NITROGEN 2021-08-26 13:10:00 Susan Tadeo MD ELECTROLYTE PANEL 2021-08-26 13:10:00 Susan Tadeo MD nderson SERUM CREATININE 2021-08-26 13:10:00 Susan Tadeo MD [...] POC GLUCOSE SCREEN 2021-08-26 04:03:00 Olegario Rain MDrson CONFIRM ABORH TYPE 2021-08-25 23:19:00 Hilario Pardo [...] ELECTROLYTE PANEL 2021-08-25 23:15:00 Bossman Castillo MD SERUM CREATININE 2021-08-25 23:15:00 Bossman Castillo MD .GLOMERULAR FILTRATION RATE 2021-08-25 23:15:00 Bossman Castillo MD CALCIUM LEVEL TOTAL 2021-08-25 23:15:00 Bossman Castillo MD Jorge son ALBUMIN LEVEL 2021-08-25 23:15:00 Bossman Castillo MD ALKALINE PHOSPHATASE 2021-08-25 23:15:00 Bossman Castillo MD Arthur rson ALANINE AMINOTRANSFERASE 2021-08-25 23:15:00 Bossman Castillo MD ASPARTATE AMINOTRANSFERASE 2021-08-25 23:15:00 Bossman Castillo TOTAL PROTEIN 2021-08-25 23:15:00 Bossman Castillo MD FRACTIONATED BILIRUBIN 2021-08-25 23:15:00 Bossman Castillo MD An derson CLOT EXPIRATION DATE 2021-08-25 23:15:00 Bossman Castillo MD Arthur rson TMP INTERPRETATION ANTIBODY 2021-08-25 23:15:00 Bossman Castillo MD SCREEN NEGATIVE TMP CROSSMATCH INTERPRETATION 2021-08-25 23:15:00 Bossman Castillo MD PREPARE RBC 2021-08-25 21:47:00 Susan Tadeo MD And erson PRBC PRODUCT READY FOR PICK 2021-08-25 21:47:00 Bossman Castillo MD UP COMPLETE BLOOD COUNT W/ 2021-08-25 17:41:49 Davina Perez MD DIFFERENTIAL Results CBC 2021-08-25 17:41:49 Davina Perez MD Anderso n MANUAL DIFFERENTIAL 2021-08-25 17:41:49 Davina Perez MD And erson XR CHEST 2 VW 2021-08-25 16:17:44 Anca Maurer MD Anderso n FLEXIBLE NASOPHARYNGEAL 2021-08-22 15:38:27 Rebecca Brown MD LARYNGOSCOPY COVID-19 (SARS-COV-2) 2021-08-20 19:44:00 Alexandra Dawson MD And erson PCR-ASYMPTOMATIC MC POC GLUCOSE SCREEN 2021-07-12 23:42:00 Lacy Adame MD Chucky on BASIC METABOLIC PANEL, 2021-07-12 21:09:00 Kwaku Yo MD CALCIUM TOTAL MAGNESIUM LEVEL 2021-07-12 21:09:00 Kwaku Yo MD Arthur rson PHOSPHORUS LEVEL 2021-07-12 21:09:00 Kwaku Yo MD And erson GLUCOSE LEVEL 2021-07-12 21:09:00 MD Zandra Chucky on Ino BLOOD UREA NITROGEN 2021-07-12 21:09:00 [...] And erson GLUCOSE LEVEL 2021-07-12 07:56:00 MD Zandra Chucky on Ino BLOOD UREA NITROGEN 2021-07-12 07:56:00 MD Yue De Paz ELECTROLYTE PANEL 2021-07-12 07:56:00 MD Zandra Arthur rson Ino SERUM CREATININE 2021-07-12 07:56:00 MD Jorge De Paz .GLOMERULAR FILTRATION RATE 2021-07-12 07:56:00 MD Jose E Mart CALCIUM LEVEL TOTAL 2021-07-12 07:56:00 MD Yue De Pza Results CBC 2021-07-12 07:56:00 Madelin Knight MD Maryse MANUAL DIFFERENTIAL 2021-07-12 07:56:00 Madelin Knight MD Arthurelroy matamoros Maryse POC GLUCOSE SCREEN 2021-07-12 04:09:00 Lacy Adame [...] ELECTROLYTE PANEL 2021-07-11 20:33:00 MD Zandra Arthur rsdeya Ino SERUM CREATININE 2021-07-11 20:33:00 MD Zandra Jorge gregor Mckinnon .GLOMERULAR FILTRATION RATE 2021-07-11 20:33:00 MD Jose E Mart CALCIUM LEVEL TOTAL 2021-07-11 20:33:00 MD Yue De Paz Ino POC GLUCOSE SCREEN 2021-07-11 18:33:00 Lacy Adame [...] Paz ELECTROLYTE PANEL 2021-07-11 08:00:00 MD Zandra Arthurelroy Mckinnon SERUM CREATININE 2021-07-11 08:00:00 MD Zandra Jorge son Ino .GLOMERULAR FILTRATION RATE 2021-07-11 08:00:00 MD Jose E Mart CALCIUM LEVEL TOTAL 2021-07-11 08:00:00 MD Yue De Paz COMPLETE BLOOD COUNT W/ 2021-07-11 07:46:00 Madelin Knight MD DIFFERENTIAL Maryse Results CBC 2021-07-11 07:46:00 Madelin Knight MD Maryse MANUAL DIFFERENTIAL 2021-07-11 07:46:00 Madelin Knight MD Arthurelroy matamoros Maryse POC GLUCOSE SCREEN 2021-07-11 03:45:00 MD Zandra And ersdeya Ino POC GLUCOSE SCREEN 2021-07-11 01:36:00 MD Zandra And naz Mckinnon EKG, 12-LEAD (PORTABLE) 2021-07-11 00:00:00 Kwaku Yo MD POC GLUCOSE SCREEN 2021-07-10 22:26:00 MD Zandra And naz Mckinnon BASIC METABOLIC PANEL, 2021-07-10 21:02:00 Kwaku Yo MD CALCIUM TOTAL MAGNESIUM LEVEL 2021-07-10 21:02:00 Kwaku Yo MD Arthur rson PHOSPHORUS LEVEL 2021-07-10 21:02:00 Kwaku Yo MD And erson GLUCOSE LEVEL 2021-07-10 21:02:00 MD Zandra Chucky on Ino BLOOD UREA NITROGEN 2021-07-10 21:02:00 MD Yue De Paz ELECTROLYTE PANEL 2021-07-10 21:02:00 MD Zandra Arthurelroy Nicholsel SERUM CREATININE 2021-07-10 21:02:00 MD Jorge De [...] Ino BLOOD UREA NITROGEN 2021-07-10 12:09:00 MD uYe De Paz ELECTROLYTE PANEL 2021-07-10 12:09:00 MD Zandra Arthur rsdeya Ino SERUM CREATININE 2021-07-10 12:09:00 MD Jorge DeP az .GLOMERULAR FILTRATION RATE 2021-07-10 12:09:00 MD Jose [...] ELECTROLYTE PANEL 2021-07-09 19:45:00 MD Zandra Arthur shiloh Ino SERUM CREATININE 2021-07-09 19:45:00 MD Zandra Jorgedebbie Mckinnon .GLOMERULAR FILTRATION RATE 2021-07-09 19:45:00 MD [...] LEVEL 2021-07-09 12:28:00 Madelin Knight MD Andadele Serra GLUCOSE LEVEL 2021-07-09 12:28:00 Madelin Knight MD BLOOD UREA NITROGEN 2021-07-09 12:28:00 Madelin Knight MD ELECTROLYTE PANEL 2021-07-09 12:28:00 Madelin Knight MD on Maryse SERUM CREATININE 2021-07-09 12:28:00 Madelin Knight MD Andreginaldo n Maryse .GLOMERULAR FILTRATION RATE 2021-07-09 12:28:00 Madelin Knight MD CALCIUM LEVEL TOTAL 2021-07-09 12:28:00 Madelin Knight MD Results CBC 2021-07-09 12:28:00 Madelin Knight MD Maryse MANUAL DIFFERENTIAL 2021-07-09 12:28:00 Madelin Knight MD POC GLUCOSE SCREEN 2021-07-09 04:08:00 Madelin Knight [...] Vasquez MD POC CHEM 8 2021-07-08 18:14:00 Josette Vasquez MD POC CRITICAL 2021-07-08 18:14:00 Josette Vasquez [...] MD Arthur rson Results CBC 2021-07-08 18:13:00 Koffi, Olegario Gamez MD Arthur rson MANUAL DIFFERENTIAL 2021-07-08 18:13:00 Koffi, Olegario Dorantes GLUCOSE LEVEL 2021-07-08 18:13:00 Koffi, Olegario Gamez MD Arthur rson BLOOD UREA NITROGEN 2021-07-08 18:13:00 Koffi, Olegario Dorantes ELECTROLYTE PANEL 2021-07-08 18:13:00 Koffi, Olegario Turner derson SERUM CREATININE 2021-07-08 18:13:00 Rain, Olegario Gamez MD And erson .GLOMERULAR FILTRATION RATE 2021-07-08 18:13:00 Koffi, Jhonny Dorantes CALCIUM LEVEL TOTAL 2021-07-08 18:13:00 Rain, Olegario Dorantes ALBUMIN LEVEL 2021-07-08 18:13:00 Koffi, Olegario Gamez MD Arthur rson ALKALINE PHOSPHATASE 2021-07-08 18:13:00 Koffi, Olegario Dorantes ALANINE AMINOTRANSFERASE 2021-07-08 18:13:00 Rain, Olegario Dorantes ASPARTATE AMINOTRANSFERASE 2021-07-08 18:13:00 Olegario Rain MD [...] UREA NITROGEN 2021-07-04 17:10:00 Yumi Lorenz MD Jorgedebbie bundy ELECTROLYTE PANEL 2021-07-04 17:10:00 Yumi Lorenz MD SERUM CREATININE 2021-07-04 17:10:00 Yumi Lorenz MD .GLOMERULAR FILTRATION RATE 2021-07-04 17:10:00 Yumi Lorenz MD CALCIUM LEVEL TOTAL 2021-07-04 17:10:00 Yumi Lorenz MD Jorge gregor ALBUMIN LEVEL 2021-07-04 17:10:00 Yumi Lorenz MD ALKALINE PHOSPHATASE 2021-07-04 17:10:00 Yumi Lorenz MD ALANINE AMINOTRANSFERASE 2021-07-04 17:10:00 Yumi Lorenz MD ASPARTATE AMINOTRANSFERASE 2021-07-04 17:10:00 Yumi Lorenz TOTAL PROTEIN 2021-07-04 17:10:00 Yumi Lorenz MD FRACTIONATED BILIRUBIN 2021-07-04 17:10:00 Yumi Lorenz MD derson Results CBC 2021-07-04 17:10:00 Yumi Lorenz MD MANUAL DIFFERENTIAL 2021-07-04 17:10:00 Yumi Lorenz MD Jorge gregor COMPREHENSIVE METABOLIC PANEL 2021-06-27 14:00:00 Yumi Lorenz MD COMPLETE BLOOD COUNT W/ 2021-06-27 14:00:00 Yumi Lorenz MD DIFFERENTIAL MAGNESIUM LEVEL 2021-06-27 14:00:00 Yumi Lorenz MD PHOSPHORUS LEVEL 2021-06-27 14:00:00 Yumi Lorenz MD GLUCOSE LEVEL 2021-06-27 14:00:00 Yumi Lorenz MD BLOOD UREA NITROGEN 2021-06-27 14:00:00 Yumi Lorenz MD Jorge son ELECTROLYTE PANEL 2021-06-27 14:00:00 Yumi Lorenz MDo n SERUM CREATININE 2021-06-27 14:00:00 Yumi Lorenz MD .GLOMERULAR FILTRATION RATE 2021-06-27 14:00:00 Yumi Lorenz MD CALCIUM LEVEL TOTAL 2021-06-27 14:00:00 Yumi Lorenz MD Jorge bundy ALBUMIN LEVEL 2021-06-27 14:00:00 Yumi Lorenz MD ALKALINE PHOSPHATASE 2021-06-27 14:00:00 Yumi Lorenze rson ALANINE AMINOTRANSFERASE 2021-06-27 14:00:00 Yumi Lorenz MD ASPARTATE AMINOTRANSFERASE 2021-06-27 14:00:00 Yumi Lorenz TOTAL PROTEIN 2021-06-27 14:00:00 Yumi Lorenz MD FRACTIONATED BILIRUBIN 2021-06-27 14:00:00 Yumi Lorenz MD derson Results CBC 2021-06-27 14:00:00 Yumi Lorenz MD MANUAL DIFFERENTIAL 2021-06-27 14:00:00 Yumi Lorenz MD Jorge bundy TROPONIN T 2021-06-22 21:45:00 Nichole Beltrán MD COVID-19 (SARS-COV-2) 2021-06-22 17:54:00 Susan Ugalde MD ASYMPTOMATIC-LT COMPLETE BLOOD COUNT W/ 2021-06-22 17:54:00 Susan Ugalde MD DIFFERENTIAL COMPREHENSIVE METABOLIC PANEL 2021-06-22 17:54:00 Susan Ugalde MD MAGNESIUM LEVEL 2021-06-22 17:54:00 Susan Ugalde MDson PHOSPHORUS LEVEL 2021-06-22 17:54:00 Susan Ugalde MD nderson NT PRO BNP 2021-06-22 17:54:00 Susan Ugalde MD CREATINE KINASE 2021-06-22 17:54:00 Susan Ugalde MDson CKMB 2021-06-22 17:54:00 Susan Ugalde MDson Results CBC 2021-06-22 17:54:00 Susan Ugalde MD [...] UREA NITROGEN 2021-06-20 14:07:00 Yumi Lorenz MD Jorge son ELECTROLYTE PANEL 2021-06-20 14:07:00 Yumi Lorenz MD SERUM CREATININE 2021-06-20 14:07:00 Yumi Lorenz [...] MD derson Results CBC 2021-06-20 14:07:00 Yumi Lornez MD MANUAL DIFFERENTIAL 2021-06-20 14:07:00 Yumi Lorenz [...] LEVEL TOTAL 2021-06-13 13:00:00 Yumi Lorenz MD ALBUMIN LEVEL 2021-06-13 13:00:00 Yumi Lorenz MD ALKALINE PHOSPHATASE 2021-06-13 13:00:00 Yumi Lorenz MD rsdeya ALANINE AMINOTRANSFERASE 2021-06-13 13:00:00 Yumi Lorenz MD ASPARTATE AMINOTRANSFERASE 2021-06-13 13:00:00 Yumi Lorenz TOTAL PROTEIN 2021-06-13 13:00:00 Yumi Lorenz MD FRACTIONATED BILIRUBIN 2021-06-13 13:00:00 Yumi Lorenz MDson Results CBC 2021-06-13 13:00:00 Yumi Lorenz MD MANUAL DIFFERENTIAL 2021-06-13 13:00:00 Yumi Lorenz MD COMPREHENSIVE METABOLIC PANEL 2021-06-06 12:58:00 Yumi Lorenz MD COMPLETE BLOOD COUNT W/ 2021-06-06 12:58:00 Yumi Lorenz MDrsdeya DIFFERENTIAL MAGNESIUM LEVEL 2021-06-06 12:58:00 Yumi Lorenz MD PHOSPHORUS LEVEL 2021-06-06 12:58:00 Yumi Lorenz MD GLUCOSE LEVEL 2021-06-06 12:58:00 Yumi Lorenz MD BLOOD UREA NITROGEN 2021-06-06 12:58:00 Yumi Lorenz MD ELECTROLYTE PANEL 2021-06-06 12:58:00 Yumi Lorenz MD n SERUM CREATININE 2021-06-06 12:58:00 Yumi Lorenz MD .GLOMERULAR FILTRATION RATE 2021-06-06 12:58:00 Yumi Lorenz MD CALCIUM LEVEL TOTAL 2021-06-06 12:58:00 Yumi Lorenz MD ALBUMIN LEVEL 2021-06-06 12:58:00 Yumi Lorenz MD ALKALINE PHOSPHATASE 2021-06-06 12:58:00 Yumi Lorenz MD rsdeya ALANINE AMINOTRANSFERASE 2021-06-06 12:58:00 Yumi Lorenz MD [...] UREA NITROGEN 2021-05-30 14:28:00 Yumi Lorenz MD ELECTROLYTE PANEL 2021-05-30 14:28:00 Yumi Lornez MD SERUM CREATININE 2021-05-30 14:28:00 Yumi Lorenz MD .GLOMERULAR FILTRATION RATE 2021-05-30 14:28:00 Yumi Loernz MD CALCIUM LEVEL TOTAL 2021-05-30 14:28:00 Yumi Lorenz MD ALBUMIN LEVEL 2021-05-30 14:28:00 Yumi Lorenz MD ALKALINE PHOSPHATASE 2021-05-30 14:28:00 Yumi Lorenz MD rsdeya ALANINE AMINOTRANSFERASE 2021-05-30 14:28:00 Yumi Lorenz MD ASPARTATE AMINOTRANSFERASE 2021-05-30 14:28:00 Yumi Lorenz TOTAL PROTEIN 2021-05-30 14:28:00 Yumi Lorenz MD FRACTIONATED BILIRUBIN 2021-05-30 14:28:00 Yumi Lorenz MD derson Results CBC 2021-05-30 14:28:00 Yumi Lorenz MD MANUAL DIFFERENTIAL 2021-05-30 14:28:00 Yumi Lorenz MD COMPREHENSIVE METABOLIC PANEL 2021-05-23 14:42:00 Yumi Lorenz MD COMPLETE BLOOD COUNT W/ 2021-05-23 14:42:00 Yumi Lorenz MD DIFFERENTIAL MAGNESIUM LEVEL 2021-05-23 14:42:00 Yumi Lornez MD PHOSPHORUS LEVEL 2021-05-23 14:42:00 Yumi Lorenz [...] FRACTIONATED BILIRUBIN 2021-05-23 14:42:00 Yumi Lorenz MD derson Results CBC 2021-05-23 14:42:00 Yumi Lorenz MD MANUAL DIFFERENTIAL 2021-05-23 14:42:00 Yumi Lorenz MD Jorgedebbie bundy [place] MODIFIED BARIUM SWALLOW W 2021-05-18 15:57:01 Alexandra Dawson MD SPEECH CT HEAD/NECK SIMULATION WO 2021-05-11 16:46:32 Alexandra Dawson CONTRAST (RO) COVID-19 (SARS-COV-2) PCR 2021-05-11 15:05:00 Alexandra Dawson MD ASYMPTOMATIC ORTHOPANTOGRAM 2021-05-06 16:53:13 Dixie Loaiza MD [employer]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 2021-05-06 15:58:10 Alexandra Dawson MD ELECTROLYTE [...] COUNT W/ 2021-05-03 14:26:00 Alexandra Dawson MD DIFFERENTIAL COMPREHENSIVE METABOLIC PANEL 2021-05-03 14:26:00 Alexandra [...] Dawson MD ALKALINE PHOSPHATASE 2021-05-03 14:26:00 Alexandra Dawsone rsdeya ALANINE AMINOTRANSFERASE 2021-05-03 14:26:00 Alexandra Dawson [...] Clinicians Facility Department ID 2021-07-09 Inpatient [facility] [id number] 15:00:36 Jeanmarie ASKEW n 2021-06-29 Outpatient Bullard, Na STLMLC STL[facility]C [id number] [facility] 11:54:04 [id number] [facility] 2021-06-29 Outpatient Bullard Na [facility]LMLC STL[facility]C [id number] [facility] [address] 11:30:38 [id number] [facility] 2021-06-29 Outpatient Bullard, Na STLMLC STLMLC [id number] [facility] 11:28:27 [id number] [facility] 2021-06-29 Outpatient Alanna Bullard STLMLC STLMLC [id number] 11:24:06 [id number] [facility] 2021-04-13 Outpatient MATEUSZ, MDA MDA [id number] 19:44:15 PROVIDER Chucky o amanda 2021-09-07 2021-09-07 Outpatient DARYL LAU MDA MDA [id number] 14:30:45 14:30:45 Chucky o n 2021-09-07 2021-09-07 Outpatient DARYL LAU MDA MDA [id number] 12:16:23 12:16:23 Chucky o n 2021-09-06 2021-09-06 Outpatient DOROTHY DAWSON, MDA MDA [id number] 14:15:00 23:59:00 ALEXANDRA Scanloners o n 2021-09-05 2021-09-05 Outpatient DARYL LAU MDA MDA [id number] 10:24:00 10:24:00 Chucky o n 2021-08-25 2021-08-31 Inpatient TANNER EL, MDA Hosp [facility] [id number] 17:50:00 16:18:00 DAVIS Chucky o n 2021-08-31 2021-08-31 Inpatient DARYL LAU MDA MDA [id number] 14:19:25 14:19:27 Chucky o n 2021-08-29 2021-08-29 Inpatient DARYL LAU MDA MDA [id number] 10:07:53 10:07:55 Chucky o n 2021-08-26 2021-08-26 Outpatient DOROTHY TORO, MDA MDA [id number] 00:20:55 00:34:46 SUSAN Scanloners o n 2021-08-25 2021-08-25 Outpatient DOROTHY PEREZ, MDA MDA [id number] 12:28:34 12:35:55 DAVINA Patel so amanda 2021-08-25 2021-08-25 Outpatient DARYL LAU MDA MDA [id number] 10:54:44 10:54:44 Chucky o n 2021-08-22 2021-08-22 Outpatient DOROTHY DAWSON MDA MDA [id number] 09:00:00 23:59:00 ALEXANDRA patel 2021-08-20 2021-08-20 Outpatient DOROTHY DAWSON MDA MDA [id number] 14:40:16 14:50:18 ALEXANDRA patel 2021-08-17 2021-08-17 Outpatient DARYL LAU MDA MDA [id number] 13:23:18 13:23:18 Chucky o amanda 2021-08-02 2021-08-02 Outpatient DARYL LAU MDA MDA [id number] 09:02:07 09:02:07 Chucky o amanda 2021-07-19 2021-07-19 Outpatient DARYL LAU MDA MDA [id number] 15:33:56 15:33:56 Chucky o amanda 2021-07-19 2021-07-19 ambulatory [facility] [id number] [facility] 2021-07-18 2021-07-18 Outpatient DARYL LAU MDA MDA [id number] 15:31:07 15:31:07 Chucky o amanda 2021-07-13 2021-07-13 Outpatient DOROTHY LORENZ MDA MDA [id number] 13:44:18 13:44:18 YUMI patel 2021-07-08 2021-07-12 Inpatient TANNER ADAME, LOLITA Hosp Med [id number] 10:33:00 21:00:00 LACY patel 2021-07-09 2021-07-09 Inpatient DOROTHY HOBBS- MDA MDA [id number] 14:37:39 15:13:17 Chucky ASKEW 2021-07-08 2021-07-08 Outpatient DARYL LAU MDA MDA [id number] 09:19:33 10:32:00 Chucky patel 2021-07-08 2021-07-08 Outpatient DARYL LAU MDA MDA [id number] 08:15:00 09:18:00 Chcuky o amanda 2021-07-07 2021-07-07 Outpatient DARYL LAU MDA MDA [id number] MD 20:19:41 23:59:00 Chucky o n 2021-07-07 2021-07-07 Outpatient DARYL LAU MDA MDA [id number] MD 10:00:00 20:18:00 Chucky o amanda 2021-07-07 2021-07-07 Outpatient DARYL LAU MDA MDA [id number] MD 09:45:00 09:59:00 Chucky o n 2021-07-06 2021-07-06 Outpatient DARYL LAU MDA MDA [id number] MD 11:21:54 23:59:00 Chucky o n 2021-07-06 2021-07-06 Outpatient DARYL LAU MDA MDA [id number] MD 13:41:27 22:23:25 Chucky o amanda 2021-07-06 2021-07-06 Outpatient DOROTHY DAWSON MDA MDA [id number] MD 15:25:17 15:25:17 ALEXANDRA Locke o amanda 2021-07-06 2021-07-06 Outpatient DARYL LAU MDA MDA [id number] MD 13:22:42 14:24:35 Chucky o amanda 2021-07-06 2021-07-06 Outpatient DARYL LAU MDA MDA [id number] MD 09:27:40 11:20:00 Chucky o amanda 2021-07-06 2021-07-06 Outpatient DARYL LAU MDA MDA [id number] 08:45:00 09:26:00 Chucky o amanda 2021-07-05 2021-07-05 Outpatient DARYL LAU MDA MDA [id number] MD 09:07:24 23:59:00 Chucky o amanda 2021-07-04 2021-07-04 Outpatient DOROTHY LORENZ, MDA MDA [id number] MD 12:15:00 23:59:00 YUMI Locke o amanda 2021-07-04 2021-07-04 Outpatient DARYL LAU MDA MDA [id number] MD 09:23:55 12:14:00 Chucky o amanda 2021-07-04 2021-07-04 Outpatient DOROTHY LORENZ, MDA MDA [id number] 09:15:00 09:22:00 YUMI patel 2021-07-01 2021-07-01 Outpatient DARYL LAU MDA MDA [id number] 09:26:55 23:59:00 Chucky patel 2021-07-01 2021-07-01 Outpatient DOROTHY DAWSON MDA MDA [id number] 09:26:30 23:59:00 ALEXANDRA patel 2021-06-30 2021-06-30 Outpatient DARYL LAU MDA MDA [id number] 10:12:14 23:59:00 Chucky patel 2021-06-29 2021-06-29 Outpatient DARYL LAU MDA MDA [id number] 09:21:07 23:59:00 Chucky o amanda 2021-06-29 2021-06-29 Outpatient DARYL LAU MDA MDA [id number] 16:04:56 16:04:56 Chucky o amanda 2021-06-29 2021-06-29 Outpatient DOROTHY LORENZ MDA MDA [id number] 12:39:09 12:39:09 YUMI patel 2021-06-29 2021-06-29 Outpatient DARYL LAU MDA MDA [id number] 09:20:50 09:20:50 Chucky o amanda 2021-06-28 2021-06-28 Outpatient DARYL LAU MDA MDA [id number] 13:24:55 23:59:00 Chucky o amanda 2021-06-27 2021-06-27 Outpatient DARYL LAU MDA MDA [id number] 08:51:26 23:59:00 Chucky o amanda 2021-06-27 2021-06-27 Outpatient DOROTHY LORENZ, MDA MDA [id number] 10:10:27 10:10:27 YUMI patel 2021-06-27 2021-06-27 Outpatient DOROTHY LORENZ, MDA MDA [id number] 07:30:00 08:50:00 YUMI patel 2021-06-24 2021-06-24 Outpatient DARYL LAU MDA MDA [id number] 12:42:26 23:59:00 Chucky o amanda 2021-06-24 2021-06-24 Outpatient DARYL LAU MDA MDA [id number] 10:45:00 12:41:00 Chuckyreginald patel 2021-06-24 2021-06-24 Outpatient PADMINI [facility] [id number] Mikana 00:00:00 00:00:00 PAT [address] 2021-06-23 2021-06-23 Outpatient DARYL LAU MDA MDA [id number] 10:41:38 23:59:00 Chucky o amanda 2021-06-23 2021-06-23 Outpatient DARYL LAU MDA MDA [id number] 10:30:12 10:40:00 Chucky o amanda 2021-06-22 2021-06-22 Emergency ER JEREL, MDA Emergency [id number] MD 11:11:00 20:15:00 NICHOLE patel 2021-06-22 2021-06-22 Outpatient DARYL LAU MDA MDA [id number] 09:50:00 11:10:00 Chucky o amanda 2021-06-21 2021-06-21 Outpatient DARYL LAU MDA MDA [id number] 08:00:52 23:59:00 Chucky o amanda 2021-06-21 2021-06-21 Outpatient DOROTHY DAWSON, MDA MDA [id number] 07:58:46 07:59:00 ALEXANDRA patel 2021-06-20 2021-06-20 Outpatient DOROTHY LORENZ, MDA MDA [id number] 08:14:09 23:59:00 YUMI patel 2021-06-20 2021-06-20 Outpatient DOROTHY LORENZ, MDA MDA [id number] 07:58:43 08:13:00 YUMI patel 2021-06-17 2021-06-17 Outpatient DARYL LAU MDA MDA [id number] 11:45:00 23:59:00 Chucky o amanda 2021-06-16 2021-06-16 Outpatient DARYL LAU MDA MDA [id number] 11:42:10 23:59:00 Chucky o amanda 2021-06-16 2021-06-16 Outpatient DARYL LAU MDA MDA [id number] MD 16:11:01 16:11:01 Chucky o amanda 2021-06-15 2021-06-15 Outpatient DOROTHY POLK MDA MDA [id number] MD 10:37:55 23:59:00 ENE Locke o amanda 2021-06-15 2021-06-15 Outpatient DARYL LAU MDA MDA [id number] MD 11:27:15 14:11:36 Chucky o amanda 2021-06-15 2021-06-15 Outpatient DARYL LAU MDA MDA [id number] MD 08:16:55 10:36:00 Chucky o amanda 2021-06-15 2021-06-15 Outpatient DARYL LAU MDA MDA [id number] 07:19:30 08:15:00 Chucky o amanda 2021-06-14 2021-06-14 Outpatient DARYL LAU MDA MDA [id number] 20:31:13 23:59:00 Chucky o amanda 2021-06-14 2021-06-14 Outpatient DARYL LAU MDA MDA [id number] 08:01:28 20:30:00 Chucky o amanda 2021-06-13 2021-06-13 Outpatient DOROTHY LORENZ MDA MDA [id number] 09:15:00 23:59:00 YUMI patel 2021-06-13 2021-06-13 Outpatient DARYL LAU MDA MDA [id number] 08:20:58 09:14:00 Chucky o amanda 2021-06-13 2021-06-13 Outpatient DARYL LAU MDA MDA [id number] 08:08:42 08:19:00 Chucky o amanda 2021-06-13 2021-06-13 Outpatient DOROTHY LORENZ MDA MDA [id number] 06:30:00 08:07:00 YUMI patel 2021-06-10 2021-06-10 Outpatient DARYL LAU MDA MDA [id number] 09:48:20 23:59:00 Chucky o amanda 2021-06-09 2021-06-09 Outpatient DARYL LAU MDA MDA [id number] 08:15:00 23:59:00 Chucky o amanda 2021-06-08 2021-06-08 Outpatient DARYL LAU MDA MDA [id number] MD 20:55:35 23:59:00 Chucky o amanda 2021-06-08 2021-06-08 Outpatient DARYL LAU MDA MDA [id number] MD 13:28:31 20:54:00 Chucky o aamnda 2021-06-08 2021-06-08 Outpatient DARYL LAU MDA MDA [id number] MD 16:41:38 16:41:38 Chucky o amanda 2021-06-08 2021-06-08 Outpatient DOROTHY DAWSON, MDA MDA [id number] MD 10:37:41 13:27:00 ALEXANDRA patel 2021-06-08 2021-06-08 Outpatient DOROTHY LORENZ, MDA MDA [id number] MD 09:30:54 09:30:54 YUMI Locke o amanda 2021-06-07 2021-06-07 Outpatient DARYL LAU MDA MDA [id number] 11:48:52 23:59:00 Chucky o amanda 2021-06-06 2021-06-06 Outpatient DARYL LAU MDA MDA [id number] 13:38:56 23:59:00 Chucky o amanda 2021-06-06 2021-06-06 Outpatient DOROTHY LORENZ, MDA MDA [id number] MD 07:00:00 13:37:00 YUMI Locke o amanda 2021-06-06 2021-06-06 Outpatient DOROTHY LORENZ, MDA MDA [id number] 06:30:00 06:59:00 YUMI patel 2021-06-02 2021-06-02 Outpatient DARYL LAU MDA MDA [id number] 06:16:14 23:59:00 Chucky o amanda 2021-06-01 2021-06-01 Outpatient DOROTHY MARIA DEL ROSARIO PRUITT MDA MDA [id number] MD 10:37:44 23:59:00 Chucky o amanda 2021-06-01 2021-06-01 Outpatient DOROTHY MAINE, MDA MDA [id number] 13:15:31 14:00:28 CLINT Locke o amanda 2021-06-01 2021-06-01 Outpatient DARYL LAU MDA MDA [id number] 06:18:07 10:36:00 Chucky patel 2021-05-31 2021-05-31 Outpatient DARYL LAU MDA MDA [id number] 14:02:11 23:59:00 Chucky nic patel 2021-05-31 2021-05-31 Outpatient DARYL LAU MDA MDA [id number] 09:00:07 20:53:44 Chucky nic patel 2021-05-31 2021-05-31 Outpatient DOROTHY CARDOSO MDA MDA [id number] 15:31:35 15:31:35 [facility] Chucky patel 2021-05-31 2021-05-31 Outpatient DARYL LAU MDA MDA [id number] 05:46:59 14:01:00 Chucky patel 2021-05-30 2021-05-30 Outpatient DARYL LAU MDA MDA [id number] 06:55:13 23:59:00 Chucky patel 2021-05-30 2021-05-30 Outpatient DOROTHY LORENZ MDA MDA [id number] 11:10:48 11:10:48 YUMI patel 2021-05-30 2021-05-30 Outpatient DOROTHY LORENZ MDA MDA [id number] 06:15:00 06:54:00 YUMI patel 2021-05-25 2021-05-25 Outpatient DARYL LAU MDA MDA [id number] 08:51:12 23:59:00 Chucky patel 2021-05-25 2021-05-25 Outpatient DOROTHY LORENZ MDA MDA [id number] 10:29:47 11:57:52 YUMI patel 2021-05-25 2021-05-25 Outpatient DARYL LAU MDA MDA [id number] 08:22:09 08:50:00 Chucky patel 2021-05-24 2021-05-24 Outpatient DARYL LAU MDA MDA [id number] 14:48:05 23:59:00 Chucky patel 2021-05-23 2021-05-23 Outpatient DARYL LAU MDA MDA [id number] 15:22:13 23:59:00 Chucky o amanda 2021-05-23 2021-05-23 Outpatient DOROTHY LORENZ MDA MDA [id number] 08:29:28 15:21:00 YUMI patel 2021-05-23 2021-05-23 Outpatient DOROTHY LORENZ MDA MDA [id number] 08:49:56 14:05:15 YUMI patel 2021-05-23 2021-05-23 Outpatient DARYL LAU MDA MDA [id number] 06:28:35 08:28:00 Chucky o amanda 2021-05-22 2021-05-22 Outpatient DARYL LAU MDA MDA [id number] 14:50:33 23:59:00 Chucky o maanda 2021-05-19 2021-05-19 Outpatient DARYL LAU MDA MDA [id number] 11:03:15 13:40:55 Chucky o amanda 2021-05-18 2021-05-18 Outpatient DOROTHY DAWSON MDA MDA [id number] 09:16:35 23:59:00 ALEXANDRA patel 2021-05-18 2021-05-18 Outpatient DARYL LAU MDA MDA [id number] 15:19:23 15:19:23 Chucky o amanda 2021-05-16 2021-05-16 Outpatient DARYL LAU MDA MDA [id number] 08:30:00 23:59:00 Chucky nic patel 2021-05-11 2021-05-11 Outpatient DARYL LAU MDA MDA [id number] 12:11:49 23:59:00 Chucky o amanda 2021-05-11 2021-05-11 Outpatient DOROTHY LORENZ MDA MDA [id number] 13:49:12 16:28:29 YUMI patel 2021-05-11 2021-05-11 Outpatient DOROTHY DAWSON MDA MDA [id number] 08:59:55 15:39:22 ALEXANDRA patel 2021-05-11 2021-05-11 Outpatient DOROTHY DAWSON MDA MDA [id number] MD 10:00:00 12:10:00 ALEXANDRA patel 2021-05-11 2021-05-11 Outpatient DOROTHY DAWSON, MDA MDA [id number] MD 09:15:00 09:59:00 ALEXANDRA patel 2021-05-09 2021-05-09 Outpatient DOROTHY SALINAS, MDA MDA [id number] MD 11:38:34 11:38:34 LEONID patel 2021-05-09 2021-05-09 Outpatient DARYL LAU MDA MDA [id number] MD 11:38:24 11:38:24 Chucky patel 2021-05-06 2021-05-06 Outpatient DOROTHY AHUMADA, MDA MDA [id number] MD 10:53:13 23:59:00 ARIANE patel 2021-05-06 2021-05-06 Outpatient DOROTHY AHUMADA, MDA MDA [id number] MD 10:44:38 10:52:00 ARIANE patel 2021-05-06 2021-05-06 Outpatient DOROTHY DAWSON, MDA MDA [id number] MD 08:30:00 10:43:00 ALEXANDRA patel 2021-05-06 2021-05-06 Outpatient DOROTHY POLK, MDA MDA [id number] MD 07:45:03 08:29:00 ENE patel 2021-05-04 2021-05-04 Outpatient DARYL LAU MDA MDA [id number] MD 10:40:00 23:59:00 Chucky patel 2021-05-04 2021-05-04 Outpatient DOROTHY DAWSON, MDA MDA [id number] MD 10:16:12 12:58:49 ALEXANDRA patel 2021-05-04 2021-05-04 Outpatient DOROTHY LORENZ, MDA MDA [id number] MD 09:45:00 10:39:00 YUMI patel 2021-05-03 2021-05-03 Outpatient DOROTHY ADWSON, MDA MDA [id number] MD 08:06:41 23:59:00 ALEXANDRA patel 2021-05-03 2021-05-03 Outpatient DOROTHY DAWSON, MDA MDA [id number] MD 06:25:36 06:25:36 ALEXANDRA patel 2021-05-02 2021-05-02 Outpatient EL MDA MDA [id number] MD 13:03:47 13:06:58 Chucky o n 2021-04-22 2021-04-22 Outpatient EL MDA MDA [id number] MD 11:48:16 11:48:16 Chucky o n 2021-04-22 2021-04-22 Outpatient EL MDA MDA [id number] MD 11:48:13 11:48:13 Chucky o n 2021-04-22 2021-04-22 Outpatient EL MDA MDA [id number] MD 11:48:12 11:48:12 Chucky o n 2021-04-22 2021-04-22 Outpatient EL MDA MDA [id number] MD 11:48:10 11:48:10 Chucky o n 2021-04-22 2021-04-22 Outpatient EL MDA MDA [id number] MD 11:48:08 11:48:08 Chucky o n 2021-04-22 2021-04-22 Outpatient EL MDA MDA [id number] MD 11:48:06 11:48:06 Chucky o n 2021-03-18 2021-03-18 Outpatient [facility] [id number] [facility] 2021-02-15 2021-02-15 Outpatient [facility] [id number] [facility] 2021-01-11 2021-01-11 Outpatient [facility] [id number] [facility] 2020-10-26 2020-10-26 Outpatient [facility] [id number] [address] [place] [address] 00:00:00 00:00:00 PAT [facility] 2020-04-07 2020-04-07 Outpatient [facility] [id number] [facility] 2020-03-15 2020-03-15 Outpatient [facility] [id number] [facility] 2020-02-11 2020-02-11 [facility] [id number] [facility] 09:19:00 09:19:00 t Specialty/[facility] l Clinic Outpati ent Clinics 2019-12-23 2019-12-23 [facility] [id number] 13:20:00 13:20:00 t Fave[employer] s [employer] [facility] Medicine Outpati ent Clinics 2019-12-12 2019-12-12 [facility] [id number] 11:00:00 11:00:00 t [facility] Medicine Outpati ent Clinics 2019-12-04 2019-12-04 [facility] [id number] 08:44:00 08:44:00 t Fave[employer] s [employer] Fight [facility] Medicine Outpati ent Clinics 2019-11-21 2019-11-21 [facility] [id number] [facility] 16:47:00 16:47:00 t Specialty/U Myah kes - Specialty rology Memori a /Urology Clinic l Clinic Outpati ent Clinics 2019-11-14 2019-11-14 [facility] [id number] [address] 08:00:00 08:00:00 t [facility] Medicine Outpati ent Clinics 2019-11-13 2019-11-13 [facility] [id number] 14:40:00 14:40:00 t [facility] Medicine Outpati ent Clinics 2019-10-24 2019-10-24 Outpatient [facility] [id number] 00:00:00 00:00:00 PAT [address] 2019-10-22 2019-10-22 [facility] [id number] 14:12:00 14:12:00 t Specialty/U Myah kes - Specialty rology Memori a /Urology Clinic l Clinic Outpati ent Clinics 2019-10-14 2019-10-14 [facility] [id number] 00:00:00 00:00:00 PAT [address] Results Test Description Test Time Test Comments Results Result Comments Source Pathology Biopsy Interpretation 2021-08-31 21:40:26 Test Item Value Reference Range Interpretation Comme nts Submitted b4enaBXzWQYfi3mvTBTkxPVqKdZyQwQbIaGaHpxvdNZwKFawtoFcKRtyb4UjY7AqLeTwRWjhqpJqYUTe XgoqazkiXIVwDIA2cyEjRFYsOLpeXHTvYIzmZk1qcMBlvUtnXhHmYWDdr0iqpeZKoltlbDz8x4zlTNMs ZmN9cYCgGBzvP4xcywRkqSDtCKDlZNz1fY62QHYfwO8 Clinical zeWHeONzuwqIdLtW4RMicYGWyWiC2UZTieBStYZMgO1ybYOYqFElcUVIhTFbunSDzQJU6lKygx6I7nBG bzTZqkDlvWnHaCsOhYcMGe0TyKIu2dJazL5VpDCTmGfY7jHWpCXSlRCphTJCzOAZaelR6eZ03VZmjijG 0jZXex6Snk36ye472sT4fyRUvHXG3XBFdISDwzHHzXS History MiHPS7EEIelELrZ1yjSKEuSK5vwpfnLBjfFZsqZTAsnWZ9MKUafHNsE4HyPGWrWKowHIPkrkh0XvHlMf 5nmFRrpEpsGQmkw5ehk6minRUcKkg9VLQoFkOqAjepXSsfj3Ogr9xlOUQtaf1hHBF2hMHdeMpkz0D8uZ DoPWJjaMBhcuGjSPGbUtC7PZsaPN1ojy78DLDvMCT1d (test code d6tkWAinAmfjjPtgNAwWMhjM7ChWJLvq483VUMbW7AdKGIws1D8pfMqBwAgPZKczNX6tzQ8SMDpKXf2y FCwbvD6qqVikYPlZ3cjuG4hYQGjRM3fphbjy5qlDHirDPgmYNDkrVP5otA6XTTpbNGrR9CyoK4tFVYcO NuvLCMcxcb9MeJzUa9oqSGupBxzKNggNsojQAheKXLq = 52963) nzXdxuPjwNzoPZHlXLDrRVkaBWYzXLjiSKHkXQIzAzSrdNwwjWowbC0pBuIsAyFxBOcxVS5mRVOzU6gh nORfFGZvEQIgQ6opJlYppA8ynVydXXeaazDbWBzje99zUVKjxPHyYW8fzQFmmpTyeMAsCM8gfLTqqObz gxtzl8Nws0ZuL0brvZCvYMsRTAWsQS7mbLufgW8fVcJ wRiMzVrpxXP6eFHXaH9ufgAVxHUFsQBVgC1iiDvMgnR3msLyxHShve hXwGDWljw40 Diagnosis e4nthBUiUMNpgYR9ToCaUHQtr3frv4FmtRZtwIQmJKjrgIHwjtIvon02gVA8xK34OF0xVZQeVoZ4TZMo ypD5Aaa2SHJlYMJndADrK138d0wvi9zvxeRyyZE0RQOdHAEyA1RyLS4pVZIitNDwC94wjDDfVQR5GKZi PAJhcUZrQGIrCLX7SNNtfMKdD1naCEEsPV0nihmjWRq (test code uAYftNZTlrPG8UHIgxKNeB1GaIHUuWIuhDFRkjhl0FqBzJz1alKCnqTrqWCczVCDoVZRlTRniASMzYyS rY8GjXHG8PKI4j5AgtnYwEFVxnT9up9c1EFEpyjdzwHvoLTddsW57WxChK3HyRRL4g0NkuzTqHN97O22 sPDP4eFLbGD0uLDYbRCfgz2G0vKTxROIit9RdXZunjC = 34) seVSRpwtwlrXCdnQvcYZkfHJTnL7LdWFE1MIS5x21aS5goXRmqn7ClfTSdQO28tyPnGYCbvL8gj7e9MC JmhqlwlUvkNJwugV49NrHkR4JnUBMcbCJdzFBgmsPdxEEldzAwrPqooqSzCC25U86yMZZ6xMMsWCFbIM K4yQDcBIsqu9Irq7YtgSp4UiteDGZnKj4qVJztNAFyu OTpTlYksEYaMSmhJURyggijmzlycBYneDNcDCdpUXxVRwOom8LqkD7bXZ7zKMxvdMXmlRpbGAhdbID9E WFhJWJzMQUuGAHuaWvjsZQxRczrVPKfxFhoITaavtIotYMbLXFzIEUURqKAuI2nUVDdFRLxLPP1hkiaY BGqFYsrqk2mwJfipzi3zFzsJpxsjYW5JgmzDALasRh5 KuBwyFafAyMsWQYgMNNKmA2ioNDvV6ddvoWwoY6jeXMeZDUpsxjwoUBwtZthTKbsISFfM7BaMAD5BWQo pZ7gBCEuZOWckWtlFUExIPl9clEiSQkwx4InnGswyrQ1XW9qIZSyt3OrwATqhG9lhREdATAyr4CosWxr cGFyXGxpNzIwXGxpbjcyMFxjZjAgVHVidWxhciBhZGV rj89qHdylUAOodJTdOFhrJTN1 Gross k8vnpPRpWYPokVEXLEfjDYdmgdGzMKPieUQgZ6RhadknBZcwLC8qEL9ysMiskCCxbMUnXG2UDRZyCoAr NPTzzRLqucJdEuXwMYCxdRYjwHZ7AHMuBF0dqhjvWHhuIFlzEWPdwgR3CGLrfECmZ9NwXWUmUC3pfyqi JJQ7KOtgyP5oeeERHnprWf1wvVZoeEmrNdShKwRjUOE Descriptio vTDTzIAZefFqkOJFyLHe2mN7LVtqtC44ee5G8Kdk6BHBcLDKxU1LsQB5dUIIrvFMmV74RMxnvEUV9TJA CQxxgLTLsTO3Px6toFMTgqFJmSRX5RMgfzDEqDVNpSXLyKZg2HZOwHZvfxQUsZN9laYtaDllucFflh6Y gqQUuPRxnOUSvJOBoRDxoCGYmDX1QBbZkZKHvHOBsHJ n (test hnZBe5FUg0DB9YFwQrEXEyAUE8GXY6UCZfEGl1YKosHQ9GIXXdXDB5QQrvLREtAGGgPbWgYOc9XZXuNP glWCHcyLStAVrrCmJcDILdKQguYkDgPTZqVRiiuiM7EVKfQRmtCELiWnMtTIQVAasmRLMvCDnhxHfwuF 4bCCTfH01yt9RNi9ClJP5UEIz9xjEotfrxiT9mJLUpr code = tCdANrltCXeI3mkYgrkNbRwOyPnQXYRbU6sJU17rCjkTOOjAAMdqY24CTCeWIAkMSJgXiYqq4D5PHKfy wW2aPPtpDAcTrGhG27agoRsDNQsTxCtH62iWRXdHjZ2LGTuOCKomkKpkeHbbWNbdGDqqAK3CAZjsA3jD WDmDLIzhKUptPQhiFjyRxpmuEB3JVygDbbmbJ2wcZNY 1450034016 IICLNekJGygkpcEiSL1KCW1FJmDUQQ68OeMjUVR7PFyTH1WAnJL0Wsh8ACw7kBbsAvojjfFieMTpXkEA hA7NIMfaJbyhrFU4DLddWmfjvX4qpWZTMWUKLyrJTnwrriIpGF9CLC0JSM7ZaNHlUFJ6cZR4WIVHDdms eIV8nGD3cC45SLWgKSGtyDNqEKjyH701LONjCDzbNVj ) [file] == Disclaimer p0ijtURaDKSoaMAjIfLnTJXlLJKvx3lvZBCwxBRhMkSjJrRpIuFdHhrjaKPzUIBxSbXip4wrb641dUJs v4dcGGMpJrV7tQMnKJEwuDEcO877KTIlLTron7dll9BeCRGqpJKye6I3ESKLxskikOk8cHxmX82ht2L0 ZkjbC4jvXVWjWSAnO2TzPO1oFMElVaz3TRB2RVT7QHX (test code sYMDcV0MoMT4hJOPziTVyKDt9s4ibrLgaLFXnNSU0j5yoCAkiclZvPU2dph4pfNr6w9jkpwZcXHHcLAS cbIBDDXZnC9MufDxxXf0reKk2vXjqLruzDQQ7Wan2KM2yki65msj8cFdmOSRwphmjIvR8JRebLOYuyzv dIZg1BFucKNGusGQ2QHJgkERfC2IjPMHvKD7bozj7WI = 9844) M7JDniWURcTjS5VLZhlKOrOQSxgAucILidm918FQY1VnOqUA1dJ0Qqq0A6eG1snAHzADSveHXcAeSbVI Hepj6smKEePIcnk4PfNGC4aiP7pYVssVMnTSUbUH49Trrus6EdSnepSRC6UIDuvuAmg9Ngn2sxFwDtuf CjR8qkK2PnMRWhOZWtXICdJeDudxOpy1Xsz8KpmNCcx Hb7k7nrMEDzNPXduJxjz3zxLSM3IWHqR5R9nJHbs5lrXNzfOTYxoEK3pkK7VRCepMDaQ6OttB8sAYYqN Q6zhoe9s0edLWJ4RCdqUPWuVuF1vuE4ATAntKRrWGFhoCtdBYvee233EQC9ArTpZJYlj1BjA6LwbElgC 05ryXykV00cDWIxsXunxA8drWhccM5cLoPqCpRaXBtk tBnhiFPsmytkWPlsvcS8PEadijphYFDgUPwxB4pzUvWzJYVhsFguHHpac8NnRJVaTVVwRxvbflG2RKGM u45aYZSry0ZqOXIjdP4fxTMoBQefiqStyXT9HJegfjYrGmGrhaNsXVJtxS5cRCQbYQ6tCSDvruFwsk0a spVvWVPdLVVlA0EuqyghlCcokjDdWYYcmy7cpaCsOBQ 5AZETXF2PFPEvEYJfn23cJQHpoFxivO7wdNQxymSuGSShz8KkvK3rqMEIZZSdQ2usAZ9lNRuuj2VjxYE iiIWzeQO3ZZVty0XyKmSjigQgiAQmfISvR0RolHkqO3grLCQpTAZaqcVhxYVhn2IdPXYkkTP5uKIhQF0 UZpMVa44mBTAuFYBXzzJqQMJhjJrweOZ5hbR6pM2eEc IRByVyySEzeCEqSpnuXFMuf695wt8mppR5SHCgMFGkxbhvz7SbLMWnESFffW79FJCvKDYlsv4ejccjjC PssqHgD4Kuiel2tW1tKEJjARsjVOGwBNXcHcGrcDArBeOyJaVvsZfjeXcyOByyTwYyXDFjDRlgF6gbRt FcZnMyMlxwYXJ9 MD [facility]SPRINGFIELD [facility] Glucose Tqtbnu4093-98-95 15:26:33 Test Item Value Reference Interpretation Comments Range POC Glucose (test 131 mg/dL 70-99 H Capillary blood code = 47044-0) samples, e.g . obtained by fingerstick, ma [...] Capillary code = 9554) Performing Lab (test [facility] Main [place] code = 41651) [facility] Cli nical Lab, [address] [place] [address] [place], [place] [address]; Rodent Control Worker: Paty Chavez MD Lab Interpretation Abnormal (test code = 09423-5) MD DorantesPhosphorus Kdcfq3236-84-90 10:30:36 Test Item Value Reference Range Interpretation Comments Phosphorus (test code = 2777-1) 3.0 mg/dL 2.5-4.5 MD DorantesCalcium Wsuux1362-65-98 10:30:35 Test Item Value Reference Range Interpretation Comments Calcium Lvl (test code = 25613-3) 8.4 mg/dL 8.4-10.2 MD DorantesElectrolyte Wkjkf0066-51-26 10:30:34 Test Item Value Reference Range Interpretation Comments Sodium Lvl (test code = 138 See_Comment [Au tomated message] 7781-2) The system Backspaces generated this result transmitted ref erence range: 136 - 14 5 mEq/L. The refe rence range was not u sed to interpret this result as normal/abnor mal. Potassium Lvl (test code 3.4 See_Comment L [A utomated message] = 8493-3) The system Backspaces generated this result transmitted ref erence range: 3.5 - 5. 1 mEq/L. The refe rence range was not u sed to interpret this result as normal/abnor mal. Chloride (test code = 101 See_Comment [Auto mated message] 2074-0) The system Backspaces generated this result transmitted ref erence range: 98 - 107 mEq/L. The refe rence range was not u sed to interpret this result as normal/abnor mal. CO2 (test code = 2027-9) 26 See_Comment [A utomated message] The system Backspaces generated this result transmitted ref erence range: 22 - 29 mEq/L. The reference r jackie was not used to interpret this result as normal/abnor mal. Anion Gap (test code = 11 See_Comment [Aut omated message] 63609-5) The system Backspaces generated this result transmitted ref erence range: 4 - 14 m Eq/L. The reference r jackie was not used to interpret this result as normal/abnor mal. Lab Interpretation (test Abnormal code = 59357-8) MD DorantesGlucose Cmelg1015-59-82 10:30:33 Test Item Value Reference Range Interpretation [...] diabetes Lab Interpretation (test Abnormal code = 97684-9) MD DorantesGlomerular Filtration Xyrj9761-08-52 10:30:31 Test Item Value Reference Range Interpretation Comments eGFR-AA (test code 108 See_Comment Normal eG FR: >= 60 = 54686-9) mL/min/1.73 m2N ote: The eGFR is calculated [...] failure <15 [Automa mary message] The system Backspaces generated this result tra nsmitted reference range : >=60 mL/min/1.73 sq. m. The reference range was not used to interpret is result as normal/abnormal . eGFR-JOSELITO (test code 94 See_Comment Normal e GFR: >= 60 = 89866-7) mL/min/1.73 m2N ote: The eGFR is calculated [...] failure <15 [Automa mary message] The system Backspaces generated this result tra nsmitted reference range : >=60 mL/min/1.73 sq. m. The reference range was not used to interpret th is result as normal/abnormal . MD DorantesMagnesium Duqej4922-96-02 10:30:30 Test Item Value Reference Range Interpretation Comments Magnesium (test code = 34638-7) 1.8 mg/dL 1.6-2.6 MD Dorantes.Serum Qplleqmbms6935-91-46 10:30:29 Test Item Value Reference Range Interpretation Comments Creatinine (test code = 2160-0) 0.71 mg/dL 0.67-1.17 MD DorantesRmjdxlwvDHJ8186-68-18 10:30:28 Test Item Value Reference Range Interpretation Comments BUN (test code = 3094-0) 15 mg/dL 6-23 MD DorantesPrmzbbgvEvpvlukwazxm6240-11-48 10:00:41 Test Item Value Reference Range Interpretation Comments Neutrophil % (test code = 71.7 % 42.0-66.0 H 770-8) Lymphocyte % (test code = 14.8 % 24.0-44.0 L 736-9) Monocyte % (test code = 6.6 % 2.0-7.0 5905-5) Eosinophil % (test code = 5.7 % 1.0-4.0 H 713-8) Basophil % (test code = 0.7 % 0.0-1.0 54091-1) IGRE % (test code = 0.5 % 0.0-0.4 H IGRE % c ount 69281-3) includes Metamyelocytes, Myelocytes, and Promyelocytes. Neutrophil Abs (test code 3.16 K/uL 1.70-7.30 = 751-8) Lymphocyte Abs (test code 0.65 K/uL 1.00-4.80 L = 731-0) Monocyte Abs (test code = 0.29 K/uL 0.08-0.70 742-7) Eosinophil Abs (test code 0.25 K/uL 0.04-0.40 = 711-2) Basophil Abs (test code = 0.03 K/uL 0.00-0.10 704-7) IG Abs (test code = 0.02 K/uL 0.00-0.04 06840-3) Lab Interpretation (test Abnormal code = 79833-6) MD Dorantes.DNC4399-80-25 10:00:36 Test Item Value Reference Range Interpretation Comments WBC (test code = 4.4 K/uL 4.0-11.0 6690-2) RBC (test code = 789-8) 3.03 See_Comment L [Au tomated message] The system Backspaces generated this result transmitted ref erence range: 4.50 - 6 .00 M/uL. The refer ence range was not u sed to interpret this result as normal/abnor mal. Hgb (test code = 718-7) 8.3 See_Comment L [Au tomated message] The system Backspaces generated this result transmitted ref erence range: [...] See_Comment [Automate d message] 786-4) The system Backspaces generated this result transmitted ref erence range: 31.0 - 3 6.0 gm/dL. The refe rence range was not u sed to interpret this result as normal/abnor mal. RDW-SD (test code = 46.0 fL 35.1-46.3 64888-8) RDW-CV (test code = 14.1 % 12.0-15.5 788-0) Platelet count (test 236 K/uL 140-440 code = 777-3) MPV (test code = 10.0 fL 4.0-10.4 96865-0) INRBC (test code = 0.0 % See_Comment The INRBC (instrument 07590-8) NRBC) value ref lects the enumeration of nucleated red b lood cells contained in a 200uL sampleof whole blood analyzed by the instrument. Thi s value maydiffer from the NRBC value repo rted in a manual differential,wh ich is based on a 100 cell differential. [Automated mess age] The system Backspaces generated this result transmitted ref erence range: <=0.0. T he reference range was not used to int erpret this result as normal/abnormal . Lab Interpretation Abnormal (test code = 61592-7) MD DorantesProthrombin Time with QSQ7432-73-99 11:12:21 Test Item Value Reference Range Interpretation Comments PT (test code = 5902-2) 14.9 See_Comment H [Au tomated message] The system Backspaces generated this result transmitted ref erence range: 11.5 - 1 3.9 second(s). The reference range was not used to int erpret this result as normal/abnormal . INR (test code = 6301-6) 1.26 0.90-1.10 H Lab Interpretation (test Abnormal code = 29246-5) MD Livingston Interpretation Antibody Screen Ehfqwujv2603-71-60 13:43:46 Test Item Value Reference Range Interpretation Comments TMP Auto Neg At the present ABSC Interp time, patient (test code = plasma shows no ____NICHOLE GAN 7535) evidence of RBC SERA HUMPHREY MD alloantibodies. - 32780Iavnu mary by: NICHOLE NAPOLES MD - [id number] Date/Time: 08.03 8:43 AM CDT Transcribed Rohan e/Time: 08.26.2021 8:43 AM CDTElectronical ly Signed By: NICHOLE NAPOLES MD - [id number] on 8:43 AM Julián Livingston Interpretation Qcljyibqpn4248-90-12 13:43:45 Test Item Value Reference Range Interpretation Comments TMP XM Interp RBC units (test code = crossmatched for 7566) transfusion appear GEORGE GAN acceptable. MD Carri JIMENEZ [id number] by: MD Carri ESTRADA [id number] Date/Time: 08.03 8:43 AM CDT Transcribed Rohan e/Time: 08.26.2021 8:43 AM CDTElectronical ly Signed By: MD Carri BILLINGSLEY 143 02 on 08.26.2021 8:43 AM Julián Tobar RBC:accc, 2 Bglrm9488-64-85 09:09:32 Test Item Value Reference Range Interpretation Comments PRBC Product Ready 2 Red Blood Cells (test code = Available - 72274-3) Order Form 03 when ready for product issue. Unit Number (test [id number] code = 7002) Product Code (test [id number] code = 7003) Unit Expiration (test code = 629289) Unit Blood Type 9500 (test code = 7004) Product Code Text RBCIRLR CPD AS1 (test code = 500mL 604929) Crossmatch [id number] Expiration Date (test code = ) Unit Irradiated IRRADIATED (test code = 818911) Dispense Status ISSUED (test code = 7001) Unit Blood Type O Negative (test code = 7005) Product Spin Instructor .BPAM ____ Location (test ___ code = 529034) ___ ____ MD AndersonRBC Product Ready for Pick Bg5166-28-10 03:22:01 Test Item Value Reference Range Interpretation Comments PRBC Product Ready B2 Blood Bank Product is ready for for Spin Instructor (test spanish moss picker on August 25, code = 535846) 2021 22:21:56 CDT. MD DorantesAntibody Okuhcr3639-69-95 03:13:05 Test Item Value Reference Range Interpretation Comments ABSC. (test code = 890-4) Negative ABSC MD DorantesDvjndtxbWTAIr5358-50-76 03:13:04 Test Item Value Reference Range Interpretation Comments ABORh. (test code = 882-1) O NEG MD DorantesClot Expiration Kahw8259-84-25 03:13:03 Test Item Value Reference Range Interpretation Comments T & S Expiration (test code = 08/28/2021 5318) MD DorantesConfirm AWMTb7601-87-82 01:27:34 Test Item Value Reference Range Interpretation Comments ABORh Confirm. (test code = 882-1) O NEG MD DorantesCOVID-19 (SARS-CoV-2)Mosqndllfycz-KX7066-97-25 00:26:20 Test Item Value Reference Range Interpretation Comments COVID19 Not Detected Not Detected (SARS-CoV-2) (test code = 62594-7) COVID19 SARS Inpatient Indication (test Admission code = 41879) Covid 19 Comment See Note The rufino S ARS-CoV-2 (test code = [place] [address]) use on the dharmesh s Alyson System [...] sheet for patie nts provided by the rubber stamps and dies supervisor ([employer]) can be rev iewed at: https://www.fda .gov/m edia/331735/denys nload. A fact sheet fo r Health Care pro viders is provided by the rubber stamps and dies supervisor ([employer]) and can be reviewed at: https://www.fda .gov/m edia/619205/denys nload Results must be interpreted wit hin [...] Th is assay has been authorized by anjel FDA for use only un isabel Emergency Use Authorization ( EUA) in laboratories that have been CLIA-certified to perform moderate-comple xity and high-comple xity tests. The Microbiology Laboratory at [facility] [place], CLIA Accreditation #[id number] and CAP Accreditation #[id number], verif ied the performance characteristics of this assay. Int ernal controls are ed to monitor all sta ges of the test proces s. MD DorantesIrewqhyjlBFF0571-22-63 23:59:55 Test Item Value Reference Range Interpretation Comments aPTT (test code = 32.7 See_Comment [Automate d message] The 85732-3) system which ge nerated this result transmit mary reference range : 24.7 - 36.8 second(s). The reference range was not used to interpr et this result as shavon l/abnormal. MD DorantesFractionated Pycrmnqdq6060-24-19 23:57:02 Test Item Value Reference Range Interpretation [...] 28 g/L. [Automate d message] The system [employer] h generated this result transmitted ref erence range: <=1.2. T reference range was not used to interpr et this result as normal/abnormal . Bili Direct (test 0.2 mg/dL See_Comment Indocyanin e Green (ICG) code = 1967-) may cause fal sely elevated biliru bin results. Total and direct bilirubin must not be measured from s amples containing indo cyanine green. [Automat ed message] The sy stem which generated this result transmitted ref erence range: <=0.3. T reference range was not used to interpr et this result as normal/abnormal . Bili Indirect (test 0.2 mg/dL 0.0-0.9 code = 1971-1) MD DorantesTotal Hcrrkyf1466-42-62 23:57:00 Test Item Value Reference Range Interpretation Comments Total Protein (test code = 2885-2) 7.2 g/dL 6.4-8.3 MD DorantesAlkaline Egzlfxubzux5698-89-80 23:56:56 Test Item Value Reference Range Interpretation Comments Alk Phos (test code = 6768-6) 64 U/L 40-129 DomoyggnGQT3295-01-18 23:56:54 Test Item Value Reference Range Interpretation Comments ALT (test code = 29 U/L See_Comment [Automated message] The 1741-11) system which ge nerated this result transmit mary reference range : <=41. The reference range was not used to interpr et this result as shavon l/abnormal. MD DorantesAlbumin Wwkqb9795-63-24 23:56:53 Test Item Value Reference Range Interpretation Comments Albumin Lvl (test code 3.7 See_Comment [Aut omated message] The = 7303) system which ge nerated this result tra nsmitted reference range : 3.5 - 5.2 gm/dL. The refe rence range was not used to interpret this result as normal/abnormal . MD DorantesAspartate Hawgyvwuilbxpgpl4565-73-86 23:56:51 Test Item Value Reference Range Interpretation Comments AST (test code = 32 U/L See_Comment [Automated message] The 1920-01) system which ge nerated this result transmit mary reference range : <=40. The reference range was not used to interpr et this result as shavon l/abnormal. MD DorantesCOVID-19 (SARS-CoV-2) PCR-Asymptomatic DK1139-10-28 10:04:37 Test Item Value Reference Range Interpretation Comments COVID19 (SARS Not Detected Not Detected CoV-2) Result (test code = ____[place] i s a 64055-4) qualitative reverse-transcr iptase polymerase mario alberto n reaction (RT-PC R) developed for t he [employer] 680 0 system and inte nded for qualitative detection of SA RS CoV-2 RNA in nasopharyngeal and oropharyngeal s wab specimens colle cted from any indivi duals, including those suspected of CO VID-19 by their health care provider, and t hose without symptom s or other reasons t o suspect COVID-1 9. A fact sheet for patients provid ed by the manufacture r ([employer]) c an be reviewed at:https://www. fda.go v/media/208199/ downlo ad. A fact shee t for Health Care pro viders is provided by the rubber stamps and dies supervisor ([employer]) and can be reviewed at: https://www.fda .gov/m edia/998438/denys nload Results must be interpreted wit hin [...] were verified by the Microbiology Laboratory at [facility] [place], CLIA Accreditation # : [id number] and CAP Accreditation # : [id number]. COVID19 SARS WATER TREATMENT PLANT ENGINEER Swab Source (test code = 68388) COVID19 SARS Pre-Out of OR Indication (test Procedure code = 67949) MD Edgar Respiratory Culture w/Gram Nrwwd3405-56-84 01:40:46 Test Item Value Reference Range Interpretation Comments Final Report (test code Normal site shayna A = 8488) present.Generally of low significance.Correlate with clinical data and culture history. Path Review (test code The results have been A = 8492) reviewed and electronically signed by Pathologist:BERTA BRADY MD #[id number] Gram Stain Report (test Moderate WBC's A code = 648-6) seenEpithelial cells seenModerate Gram Positive CocciModerate Gram Variable Madan Lab Interpretation Abnormal (test code = 47747-5) MD DorantesStreptococcal Urine Antigen Path Uujxrn0652-71-63 07:11:21 Streptococcal Urine Antigen Path ReviewPresumptive negative for S. pneumoniae antigen in urine, suggesting no current or recent pneumococcal infection. Infection due to S. pneumoniae cannot be ruled out since the level of antigen present in the urine may be below the detection limit of the test....Reviewed and Electronically signed by Pathologist:Amaury Sinha MD, PhD #[id number] Comment: AMAURY SINHA MD, PhD - [id number] by: AMAURY SINHA MD, PhD - [id number] Date/Time: 07.11.2021 1:11 AM AFTERNOON BABYSITTER Transcribed Date/Time: 07.11.2021 1:11 AM CSTElectronically Signed By: AMAURY SINHA MD, PhD - [id number] on 07.11.2021 1:11 AM C [facility] OSKALOOSAMD AndersonLegionella Urine Antigen Path Vlomcn6913-45-23 07:11:20 Legionella Urine Antigen Path ReviewNegative for [...] Electronically signed by Pathologist:Amaury Sinha MD, PhD #[id number] Comment: AMAURY SINHA MD, PhD - [id number] by: AMAURY SINHA MD, PhD - [id number] Date/Time: 07.11.2021 1:11 AM AFTERNOON BABYSITTER Transcribed Date/Time: 07.11.2021 1:11 AM CSTElectronically Signed By: AMAURY SINHA MD, PhD - [id number] on 07.11.2021 1:11 AM C [facility] AndersonMRSA Screening Egzmmag1213-59-85 17:31:51 Test Item Value Reference Range Interpretation Comments Final Report (test No Methicillin resistant code = 8488) Staphylococcus aureus isolated. Path Review (test Culture yield may be code = 8492) affected by sample quality, prior treatment, and transportation conditions....The results have been reviewed and electronically signed by Pathologist:Amaury Sinha MD, PhD #[id number] MD DorantesTrregino T (In-House)2021-07-10 12:49:59 Test Item Value Reference Range [...] res ults. [Automated mess age] The system Backspaces generated this result transmitted ref erence range: <=18. Th e reference range was not used to int erpret this result as normal/abnormal . Lab Interpretation Abnormal (test code = 99160-7) MD DorantesCalcium Ionized, Uvogbu7853-66-90 04:43:41 Test Item Value Reference Range Interpretation Comments V Ion Ca (test code = 83659-8) 0.96 mmol/L 1.15-1.29 L Lab Interpretation (test code = Abnormal 55587-3) MD DorantesStreptococcus pneumoniae Urine Iggnjgp3097-36-03 23:04:40 Test Item Value Reference Range Interpretation Comments Streptococcal Urine Antigen Negative Interpretation (test code = 27736279) MD DorantesLegionella Urine Wsuaggu3350-36-10 22:58:02 Test Item Value Reference Range Interpretation Comments Legionella Urine Antigen Negative Interpretation (test code = 9617506) MD DorantesNustjuflXiksnzyhqryhk8309-50-10 00:33:03 Test Item Value Reference Range Interpretation [...] extended diluti on as it exceeds the rubber stamps and dies supervisor's recommended krishnamurthy it. Caution should be exercised when interpreting han ch values and done in conjunction wit h clinical contex t. [Automated mess age] The system Backspaces generated this result transmitted ref erence range: <=0.08. The reference range was not used to int erpret this result as normal/abnormal . Lab Interpretation Abnormal (test code = 84559-3) MD DorantesGeneral Laboratory Add-On Awme9238-39-19 22:22:54 Test Item Value Reference Range Interpretation Comments Ordered (test code = 6568) Test Added Test Needed (test code = 7604) Procalcitonin MD Breaux Dknsk9113-43-85 19:02:48 Test Item Value Reference Range Interpretation Comments D-Dimer (test code = 0.77 See_Comment H Recheck ed and 5462) VerifiedThe cut off value for exclu mir of venous thromboe mbolismis <0.51 mcg/mL FE Us (fibrinogen equ ivalent units). [Autom ated message] The sy stem which generated this result transmit mary reference range : 0.10 - 0.50 mcg/ml FEU . The reference range was not used to interpr et this result as normal/abnormal . Lab Interpretation Abnormal (test code = 43118-6) MD DorantesCardiac Lyowx9962-86-65 18:51:30 Test Item Value Reference Range Interpretation Comments CK (test code = 5206) 112 U/L 39-308 CK MB (test code = 2.4 ng/mL See_Comment [Automat ed message] 2820) The system Backspaces generated this result transmitted ref erence range: [...] res ults. [Automated mess age] The system Backspaces generated this result transmitted ref erence range: <=18. Th e reference range was not used to int erpret this result as normal/abnormal . Lab Interpretation Abnormal (test code = 91521-1) MD DorantesPOC Chem 8 without Hemoglobin and Wrdwakgpjb8371-32-09 18:20:24 Test Item Value Reference Range Interpretation Comments POC NA (test code = 131 See_Comment L [Automa mary message] 81924-4) The system Backspaces generated this result transmitted ref erence range: 138 - 14 6 mEq/L. The refe rence range was not u sed to interpret this result as normal/abnor mal. POC K (test code = 2.3 See_Comment A Method de scription: 60629-1) The i-STAT is a n analyzer used f or in vitro quantific ation of various anal ytes in whole blood. The device uses a s [employer]kv[employer] disposable cart ridge which contains microfabricated sensors, a calibration che ution, fluidics system , and a waste chamber . Each test cartridge contains chemic ally sensitive biose nsors on a [employer] ip that are config ured to perform [...] L [Automa mary message] 2068-08) The system Backspaces generated this result transmitted ref erence range: 98 - 109 mEq/L. The refe rence range was not u sed to interpret this result as normal/abnor mal. POC VTCO2 (test code 32 See_Comment H [Autom ated message] = 2026-06) The system Backspaces generated this result transmitted ref erence range: 24 - 29 mEq/L. The reference r jackie was not used to interpret this result as normal/abnor mal. POC Anion Gap (test 21 mmol/L 10-20 H code = 30550) POC BUN (test code = 16 mg/dL 8- 5299-2) POC Crea (test code 1.0 mg/dL 0.6-1.3 Medicati ons, = 06435-2) especially hydroxyurea or supplements, han ch as ascorbate, can interfere with test results causing a falsely and significantly h igher result than exp ected. If a problem is suspected with a patient's resul t, a [facility]. Method descript [...] chemic ally sensitive biose nsors on a silicon [employer] ip that are config ured to perform spec ific tests. The microfabricated sensors measure analyte concent ration by an electroch emical assay. POC eGFR-AA (test 87 See_Comment Normal eGF R >= 60 code = 28004-5) mL/min/1.73 m2 The eGFR is calcula mary [...] eve lysis) [Automated mes vasquez] The system Backspaces generated this result transmitted ref erence range: >=60 mL/min/1.73 m2. The reference range was not used to int erpret this result as normal/abnormal . POC eGFR-JOSELITO (test 75 See_Comment Normal eG FR >= 60 code = 88490-2) mL/min/1.73 m2 The eGFR is calcula mary [...] eve lysis) [Automated mes vasquez] The system Backspaces generated this result transmitted ref erence range: >=60 mL/min/1.73 m2. The reference range was not used to int erpret this result as normal/abnormal . POC Glucose (test 132 mg/dL 70-99 H code = 08359-6) POC Ion Ca (test 1.00 mmol/L 1.12-1.32 L code = 72481-7) POC Sample Type Venous (test code = 6690) POC Clean Dev (test Yes code = 6672) Performing Lab (test MDA Main Main Ca mpus code = 66297) [facility] Cli nical Lab, [facility], [place] [address]; Rodent Control Worker: Paty Chavez MD Lab Interpretation Abnormal (test code = 64589-8) MD [facility]anetsSPRINGFIELD HOSPITAL Gtwqpakn9549-06-20 18:20:23 Test Item Value Reference Range Interpretation Comments POC Critical Comment See Note Test pe rformer notified (test code = 8955) Ordering Licensed Provider and /o r designee of POC Potassium criti nikki Results. MD DorantesCreatine [id number] 18:26:09 Test Item Value Reference Range Interpretation Comments CK (test code = 5206) 84 U/L 39-308 MD DorantesNT-Pro BNP (In-House)2021-06-22 18:26:08 Test Item Value Reference Range Interpretation Comments NT ProBNP (test code = 1199 pg/mL See_Comment H [Aut omated message] 0368) The system Backspaces generated this result transmit mary reference range : <=125. The refe rence range was not u sed to interpret th is result as normal/abnormal . Lab Interpretation Abnormal (test code = 24328-7) MD [id number] 18:26:07 Test Item Value Reference Range Interpretation Comments CK MB (test code = 2.6 ng/mL See_Comment [Automat ed message] The 5200) system which ge nerated this result tra nsmitted reference range : <=10.4. The reference r jackie was not used to int erpret this result as normal/abnormal . MD DorantesPathology Outside Rruetyudmogcia9704-18-45 20:17:02 Test Item Value Reference Range Interpretation Comments Materials Received (test f3tgiJOxKDEpbFBcLoJh code = 9973) DMBxNUYvk3jlLSEfeJTt ZzEwMzNcZnRuYmpcdWMx IGJcMnUve8eqi464iJLn b0qrBFWeOpY5fKWeZFXp jNZeG623FHXxCBlhi4ll g2ZwKQPdiDFrz4P2UFCY qalnqDf5eSpoS58sj4L1 WcowZ3ncYTJjQRZzE6Te YV4mUGVjBcd5GUU4QAH4 AYNdFXKfI8AoFL2gHNBt aIRfETz2d4pqcHjyMRWi RUW3r1clKVyvhdYtFZ3f tw1mfJy3g8cngqAgMRAa VLMglQJRKUCcH9DwbZzh Mj9ekXk1yNnrJgmvDDI8 Xay1KT2nal02tze7ePmr XZRionwrVbN3OQryGXLc ipshHAo2TNbjTIDgxOoo MFxtYXJncjcyMFxtYXJn wFB9IKWiyAMnM9KgYIQm XZbpKSZpood3LiDcTw4d vSMzoIfcTNejo1run8ne yBHkRfk8XZAiNdLuWwjz ASrvi0Zkf6ndPHIrde7g WNW7uYVeyRsgc7G3gSCk WGKbvTTaoaSyVEOrsd59 yRPriYPopYSvxx6cykZv eLThvJToITG3mSMbigCs ATKhqLIuVOPcDD0fySJp QWNizR9xngapICOfAkVd swqyCGBpoCljalMuMe7g nGszNFK4GTucX8aroV6v QdC1NWzqD6sfgN3tYCf6 HYujmBF4ZQAsmQ9gEU9d gogbe2ifDpRdZC7yqocj d1evBpIeFJ0lrtf9f3lt DTG1THqkSXDdLbO8vrO0 NDBcaGVhZGVyeTcyMFxm n013COR7NaMnEUPtw2Sg I1UhlHdiT28pgVjxK91v VNOzeJazxF0zuLuzvH8d AvTbKuOrISc3pe49GCy3 kznyzFzvTRa6mcTuSYKw EWH3DZVqzKIcOZXbC8c3 ykVqGXZrWNM9ALWseIYx RGZhX5n6rcYjECC9KBa2 cnBhZGRmdDNcdHJwYWRk YjBcdHJwYWRkZmIzXHRy hJUzoGTykPEbxB3ftCqj DEJojTMatE5yXEI9EYRa cmgzMjBcdHJoZHJcbHRy qj81IVHopfCliMZmqFeq lHUjBDZ1ITLkFPIzSKHx LTP6VZPsLzHwhxZyUOdk bGJyZHJiXGJyZHJzXGJy GHU1LIFvCyTgjyLwBEfk bGJyZHJsXGJyZHJzXGJy QXC2NLXcHsFrvsNjZXxf bGJyZHJyXGJyZHJzXGJy IMO2WMHzRiHtnfKtZBmb bHBhZHQxMFxjbHBhZGZ0 T4kchIEcMCNdQEdszKWi GUIvO9nchUHuENdmVLLj cGFkZmwzXGNscGFkYjBc K5urDPSpWgKjC8JhzXh6 MDAwXGNsdmVydGFsdFxj bLHtXGQ0NMVePZJiIRIa KPH8LPZuNdSftfJzGBme bGJyZHJiXGJyZHJzXGJy KLS9MDQpFrYbizZcJDxi bGJyZHJsXGJyZHJzXGJy DFN6DKUsVoCaorDvHBck bGJyZHJyXGJyZHJzXGJy GAI9UJAfErNwdsJoQIdu bHBhZHQxMFxjbHBhZGZ0 T2qraDVwPRSiJYepbWJq UXNlH5lutDShWMzdSFWy cGFkZmwzXGNscGFkYjBc S0maPZKqKlDpY3SbpEu0 NjAwXGNsdmVydGFsdFxj wLTaRIL3OYWnPXBqFJYo FHU9HVObKpJtncUvVZep bGJyZHJiXGJyZHJzXGJy QEU0QKPzVlNwrxYjPVee bGJyZHJsXGJyZHJzXGJy JKO1KATlGdQybxWzPTbg bGJyZHJyXGJyZHJzXGJy JQU2ZDEhEeKghaApPJjo bHBhZHQxMFxjbHBhZGZ0 G1ilvODrULZmOWdgxZHi CXVuY3tcdZQhGUffEVVf cGFkZmwzXGNscGFkYjBc A9ihQVMhDfLzO2RxdKr8 FlMfVFEwihCpbD37Vibh s4DuWCDyYPT8QUvmLYxd bFxwbGFpblxmMVxmczIw OOejxfcmNSFgVJaoE4lv PcWzYOImtVekQDyda1Df XGYxXGNmMlxmczIwXGIg GNMoBFQlzN5sLxxwR0Fm fR1lOKjfZviqF7pyNWPz j1KauX0uEHtlpPAdtdav MVxmczIwXGxhbmcxMDMz SFjgK8qoZmGvDDGioXfp ZJojx4VwXMSsCKWfZzae huYnZXi7lnXhTVMvgPfv aENdPKhvtqXbkNyrp5Ag vtSgeOhuPONbQIg7maZt blqbzXq0iHPvnKgqXBAk rAawlO6oYeUfTzFjOLjp bGFpblxmMVxmczIwXGxh ewtsTYDhLFqmY7mkFzDx MGHjoEzvPXnwz5TjBXXm TWViIfsadtGgXBGeO94o bGVjdGVkXHBsYWluXGYx XGZzMjBcbGFuZzEwMzNc aGljaFxmMVxkYmNoXGYx FXnlU2jvDsDzB4ZyIZIv WkMbyJEgI2xvU8LueZfl YXJkXGludGJsXHNzcGFy VXU9uAPhwgFozKCldJFg TTCgBZwaRGT9mATzegyq kBEmvrkqHGtdzdU1EMDa YWluXGYxXGZzMjBcbGFu ZzEwMzNcaGljaFxmMVxk PvTqVBLvZIlmJ3hdVrNl G1TzNEAdFaPtKfTZJMHf aXZlZFxwbGFpblxmMVxm czIwXGxhbmcxMDMzXGhp A0jiOzRuTWPuiShdRJzj m4CeEZVjEBNvWodfbiCj AVc1fyHmIOTsyGfsoI05 Uqonqw68SSAgg6jgECZw L7IgxUYuXBJooZPrPJuu MDhcdHJwYWRkZmwzXHRy cGFkZHIxMDhcdHJwYWRk ZnIzXHRycGFkZHQwXHRy aLCsDAH6P3s1ayLuXVUd IEf9rtMpBGKqYeOehFCt THS2QJz9YvzbtjF7jKOt I7t1IfcleqQtGSivqELd fx31ZYAdazBarUEtlZrk nMNyEIL5VTGzPFZxAPRc LTZ3XFCvSjXippQdSSvi bGJyZHJiXGJyZHJzXGJy IAP3WXYtRuRibyGsNNsi bGJyZHJsXGJyZHJzXGJy RZV3AGMgXdMbjyZxRHcm bGJyZHJyXGJyZHJzXGJy COG6DQTxPmTbdpKiPHpu bHBhZHQxMFxjbHBhZGZ0 D6telRGbJINnEXethEXr LPQcN9whtXPqZIvbVZJq cGFkZmwzXGNscGFkYjBc T3iqBKKuRaLjB3UwgOc6 MDAwXGNsdmVydGFsdFxj gAFuFTV6VTCgSHLoEGYw JIO5NGIfJtMojcUbPDss bGJyZHJiXGJyZHJzXGJy LRQ6FBWkKxIpwjBdDGhs bGJyZHJsXGJyZHJzXGJy LCG9CNZzVwMirvHyXOip bGJyZHJyXGJyZHJzXGJy HOB6EAUsNxKtkjJeDFyf bHBhZHQxMFxjbHBhZGZ0 U7xkvDFfIDAbBBadePEu WLBxA1prnEOqRMiuXWDx cGFkZmwzXGNscGFkYjBc P9miBMSfGyXcJ8UefUp8 NjAwXGNsdmVydGFsdFxj yYXoPAI3VXClMCCrOINv MTY2SDUmUrBnliLcPVac bGJyZHJiXGJyZHJzXGJy TLM2CVKdPjMpziCqKPtw bGJyZHJsXGJyZHJzXGJy FXE1VDJiYdDpqcRaAUri bGJyZHJyXGJyZHJzXGJy WLG0AYJbYrVvquHsMSqn bHBhZHQxMFxjbHBhZGZ0 I1lbuIRnNAWbRGbphBXg HNKgM2offJRcUKjpGPLt cGFkZmwzXGNscGFkYjBc X9fyKJBmQkXlM9YpvWv5 QvTyHTEnkrKbhX63Raid e3YlDNUdFGB1KLioYMfq bFxwbGFpblxmMFxmczI0 XHBsYWluXGYxXGZzMjBc bGFuZzEwMzNcaGljaFxm LBxbTkTeRAFnNYytQ9wt PiCdK4BzQSBtCnEyVQ4b EjC5UYVqMKD6FHP2CYPZ TIUfCCMSS3SODfwoGMBT V0GbqGyxuG9zAxSiPkWt VNnrZD3uCTZyQ6vnoXSt ARVhKCBcT7utTqGodW7j aFxmMVxjZjJcZnMyMFxs dHJjaFxjZWxsXHBhcmRc kW56Ykdsz2BkSAYsFFI1 MFxzMFxxbFxwbGFpblxm ZYgetmC2NVUnMOzlISDs XGZzMjBcbGFuZzEwMzNc aGljaFxmMVxkYmNoXGYx LTpjB2hrVsQwV8DxSTYp MjAgMTAvMjUvMjAyMVxw bGFpblxmMVxmczIwXGxh gptwXHBmQWcsG0vlTyRm VTPleLnoCCjkt8VeTJQt QEKbIaxopoQhBIm8bjVn XGNlbGxccGFyZFxpbnRi rUmsc6OzblQcsHyoQXPf XHFsXHBsYWluXGYwXGZz IvAlwPsjnQ2tBpNeXxSu CLiiVU0xEDBzQ1jdcZJv PQFlLUNgH9miAkDfkV1v aFxmMVxjZjJcZnMyMCAx FG4gKj9pIURtYRKrYPow XGYxXGZzMjBcbGFuZzEw MzNcaGljaFxmMVxkYmNo BIHjLRweU2qcZbZfT6Jp WTQsZxFsmJMrI6szG8Pf xXutgwBszFcol6gohARe LKnzm9CqpyZqzXwaSRBx XHFsXHBsYWluXGYwXGZz FmRspXlcxI9hFiTqZlHu KIfeJZ8pUNLsS2gnfIYr SRRmLMYrQ2pzUhYvbR6l aFxmMVxmczIwXHBhcn0= Addendum 1 (test code = i0ntlZIxPMGigIX9EtDb 37) UMElp1tvf8GdzXHrsZQj WUlwkVOunnWxgo54iRH6 jC47NY0bHKUfKnW1JJNf dcF2Jsu6OFGcDFBisGTn K500v6ogy8bwwrOzaTO6 vCtxRGFmaobyZrY9HTsg SUMqdurxFYq0DAvxOIYf lSQ4TWIdvOXzI6FgHNFo NR0ctfc1GFP7MZqtEVPw KgR1KXPxbTTrSZAxrLsr PEkeh586BMY5RvBlZNLj zsLtqEoedW7vSlJcUXMH CVIhuPsdtmNoUF1olHQh pOUtMMPqB6TdofXxMK6n AYGpHsXoHxKrUmPyRW81 vDHbUNTcHRMpQKNzjV7j JiioElO2YJEoORQ8HXVp VCMKZOVwHLHSL1SWTYHz XBXJRekiI68mvRZopCFk XT8hHXDwFlO4DqXeOoLx XHBhclxwYXIgRGVlcGVy BFimqvGwyqFlZmEtnG1c liHcWmL7MRKoIYY4IBZp IHdlcmUgZXhhbWluZWQu VHOxZMOkdtrjvG9wlJYb oJGdfp7wyZPszjJdLLgt fpL8udCwUN3xLJMrYSXj cn0= Diagnosis (test code = v8jxiYMzYSUxtUY6VtRg 34) ZZDpd6lbo2ZzcKUrwYIf PRoskBIhaoHaao11hCV6 eH74FQ2uBIUyHeG6QSXl bqZ3Igv4KENvXMNutSFy X504q7qyp1vbwyOesAU8 WWMyAMNjJ2AiEK4dAWXt lIBwW11zlSBhVUV1PAMs URMygFMfHWDaZCL7OYXx mGWkZ7gaVIQxYH8dqkun TMzeGAuwPYXbaGL6TBJc qKDdR9TlRZHkAPiuPIEl ipd8PaWnHs8epJUbaKlq MFxwYXJkXHBsYWluXGZz VoQtH6VtBB63dRZpMVXo KDIxOklTMTUzOCwgNiBT Tej2RKTlkufgIyAatRDv XGxpNzIwXGxpbjcyMCBM DOS9qovwFPBzD5d1AQMe dQPxyq8fZUpmEhnaiMD2 IChBKTpccGFyXGxpMTQ0 KWftlT3hUFRoVQLEYKYV G6XWAKBLCIugX4JCJ7jG Z80WSYTdfSNhiHVnr1Rr ABFvurBrnfQlu1yusgau BBYtuOy2TrSkqUrjEtMn PKNqvkKPUEJ2zrwyTXjw DlIlYNU1xIDva1ajXTRp oK6ef2crGNQvNvdiCXKe zHvrXPUcCHcydxC4CONs E5G7ZQ6hnBEqeNSvq4Km GJnnlZzcB4ris92wIrCb lmUyWX9wSGSgs80aKR3m M8F5rWEpULFqznW4gB6m evteABGtyQj3KiOdwUjh YjBsGLQhpzLUKGH6rivi RQpsJxPuTdZpj6Dsdk3v YYoxV08qZKbpOrqecRK7 IChDKTpccGFyXGxpMTQ0 RQacnQ9iWYKwXKVnnPYz t2SaTA12Z44cXOCgcmXl gNgmt7Exr6GxsUDtzfay H3setkCcZB9iV4Q9nSOx ARCkooA8zS9kbxxdKONm vDXaYAEsjgRfP89TU3BJ TlxwYXJ9 English Language Learner Tutor(s) (test code x2ljsWGdWLIzjRF0RxZo = 9849) FNQbs8mvm0PocMGsaXUm UTrtsBXmzkVzpc22cWQ6 tA90CX3fDXTpIgX5SHIp kxT6Qic8MXLjZLKjbUAf U630t7bgn9fedlXbcGL5 pXyuLWQmoorrLoP5KHpi DRJyxcpnIJf6LYjkONRd iAW6VZOyzOAuM1OyYCMx VK5fidn4MCV0CSlzUCTi KiC2IJWbaWHhPMWmtPob HLvha229FEB6StAkVXNy zuNalJrusR5qOaIjXIFQ bi8hXFgpzYCmaJEpR9nh bGlhbXMgaGFzIHJldmll r7FnCGTdgwSnRSMkznRu I11jR0Vyer4alRYleK== Biomarker Block(s) (test p2xtyNJiEZYusUP8XiJf code = 9841) FQXqv9mct3ZqjTUbzOKj DPamhABlvcAhpf59iED7 nC83CN7rMAWzUvE9ZQSf euB2Khu7MVJzAZBmvYLe G914z8koc3gjcvMveGU4 lBdqITLcjldyBeE2XTvc FAIzhytrBKo3TTcpOHNa aXZ3QDPprTTvN7CaFUNy ON3yqzx1YKI9NSzxRZKv QyT7FVTztHBhAFHyyFnv GOarq811SJX7QpGrSTLz tcKhoOgyrI7nYxYsEJGK OiBBXHBhciBOOiBDXHBh cn0= Disclaimer (test code = o7obqXOfKQKflSFnXeCf 9844) SMUhPAUxn1wiFZIqmINp ZzEwMzNcZnRuYmpcdWMx TCNeFpYgd3gnb641rJBh c1rgLNLlLxQ5pPLqEAZi mDXqD400LUAiAYinx6nb x0AcMEZmkKSvb8Y5BYBI qvxacIn6eQaqE21xg4Z5 EcgjM2svYPJtVCCzJ7Hu NA2gQXOwGvj0HLK9HIU8 NHGwTLKuD6SxTQ5dBZFg dLYqTEy3a2jszZftZFUt EME0a0yiVGzaycAaNJ6a lf2cvRy9q9rtblYtUXOq UVRttKSMAUQnU6DvpQfn Xg2hfXl7dAqkLdvbFES6 Obh4TA9xde40jdw7oFxd DHLsndanFhE0OIjaNWFk mziyVFw3MQdrNXZbjHZ8 UQMxnNEgB2MmGMYvVO7r nev0NQP5FNmjVUBqIzB2 NDBcaGVhZGVyeTcyMFxm u135FMJ1VoQzAP9dE5Ay l8D0tX2hhVAoZTGlcBCx AcAcVMBfsg2ouIVlGPsv s1SmEJF8ayW9tBPfdCLc MCQlTK40Xzrrb2AqRibr ZJB7BEUeviTip7Moo4kc LwOymuUvK7eaL0CgBJLr BVRbJIFwEeMshoMxq5Vp q3UbuOBgwLp4n3izFQTq BEQnaYfhx5vyXJE2RPQs K0W9fJLaw9dbYPtrWBWs pLV0cnR4HLWljUMjN2Hr yO7vYDKdZA7mnsx8b5vs RFM9KHcuDCDeItL8ouH1 NDBcaGVhZGVyeTcyMFxm b697KUS7KsFcOYYai6Dq E7SycIelW57hjSybD69q AMZouYklwL5dvGwipQ1x ZjBcZnMyNFxxbFxwbGFp ilprJUpjqmM7VOzczmmi HNZyDRtuZ3ftJqBwISXk aXqjEJyjl4DrBZCzKMSl JebzdbD5OVEWj29eDGKh y3UwCADquR8zzCQqUCpw coJjxRY5KEzthlXmYzZu hsRrQFSnyI2wEGAsRQ2n FRYwigJoah0ghuFeZTAe PJBfD8HdxavkgBhuwyZn YPIuqf7mogXhJBM0ZNEJ ZE0TGTWpPQWpl66eOSCz zFbaeF6rzDJsypLcIYAt y3AohJ0oaNKUERUsG0cm SI3mBVfti1OmpGIgjWId aMM0DOYhv7NmFrGilsUu kZEchVVsI3DbuAudV1al RXYmSFMjdxVivOXxc1Vu OUCisLQ9kFSvHJ9WVvMR d40dAJHjENLXhlVvOOFn jHqbtHG0ejJ0iE5iAcGO ZiBhcHBsaWNhYmxlLCBj u327sa9owsF3RLKgFIYx tkmdo4ApNGJaWASpeK92 RMJrRMGese6patxmsMOg tmGkU0Figwu4iW8jTWQl YWluXGYxXGZzMjJcbGFu ZzEwMzNcaGljaFxmMVxk NcVcDTZcHXokV8usOfCf ZnMyMlxwYXJ9 MD DorantesMD COVID-19 (MAURA-CoV-2) PCR [id number] 01:46:37 Test Item Value Reference Interpretation Comments Range COVID19 SARS Pre-Out of OR Procedure Indication (test code = 74232) COVID19 SARS Result Not Detected Not Detected (test code = 29997-3) COVID19 SARS SARS-CoV-2 NOT Detected. Interpretation (test Reference Range: Not code = 58964) Detected Methodology: The Fontanez RealTime SARS-CoV-2 assay is a qualitative real-time reverse service station console operator polymerase chain reaction (pre coder-PCR) test to detect RNA from SARS-CoV-2 in nasal, nasopharyngeal and oropharyngeal swabs from patients with signs and symptoms of infection who are suspected of COVID-19 by their health care provider. The Fontanez RealTime SARS-CoV-2 performed on the Proximiant System is a dual target assay with [...] high-complexity Molecular Diagnostics Laboratory (MDL) at [facility] under the Food and Drug Administration (FDA) s Emergency Use Authorization. Factsheet for patients: https://www.[facility].org/ AbbottFactSheetPatientsFact sheet for healthcare providers: https://www.[facility].org/ AbbottFactSheetHCP Test performed by:[facility] [id number] [place] [address] MD DorantesGlucose, [id number] 18:55:04 Test Item Value Reference Range Interpretation Comments Glucose Random 136 mg/dL 70-199 Effective 2 12/17, the (test code = 9360) glucose r eference intervals have been updated based o n [place] Di[employer] rommel delines (Standards of [...] Not fasting PEDRO LUIS) MD DorantesVitamin D [id number] 18:49:59 Test Item Value Reference Range Interpretation Comments Vitamin D 25 OH (test 42 ng/mL 30-100 Refere nce Range: code = 8018) Deficiency: <10 ng/mLInsuff iciency: 10-29 ng/mLSufficienc y: 30-100 ng/mLPotential toxicity: >10 0 ng/mL MD DorantesTMP HCV Ab Path [id number] 12:33:38 Test Item Value Reference Range Interpretation Comments HCV Ab Path There is NO Interp (test serologic evidence code = 8923) of Hepatitis C M AYRIN virus antibody. DELFINO FERNANDEZ,Dictated by: RUFINO FERNANDEZ,Dictated Date/Time: 05.04.2021 6:33 AM AFTERNOON BABYSITTER Transcrib ed Date/Time: 05.04.2021 6:33 AM CSTElectronical ly Signed By: JOSEPHINE FERNANDEZ, on 05.04.2021 6:33 AM C MD DorantesHepatitis C Virus [id number] 05:13:47 Test Item Value Reference Range Interpretation Comments HCVAb. (test Non Reactive Non Reactive Antibody detect ion in the code = 5762) immunocompromis ed and immunosuppresse d population may be delayed or absent entirely. There fore serial testing, correl ation with other clinical findings, and supplementa l testing (if available) should be taken into cons ideration when interpreti ng the results.Perform ed at: [facility] [id number] [facility], [place], [place] [address] MD [id number] 15:50:39 Test Item Value Reference Range Interpretation Comments TSH (test code = 3.71 See_Comment [Automated message] The 7578) system which ge nerated this result transmit mary reference range : 0.27 - 4.20 mcunit/mL. The reference range was not used to interpr et this result as shavon l/abnormal. MD DorantesFrverenice [id number] 15:50:30 Test Item Value Reference Range Interpretation Comments T4 Free (test code = 7502) 1.46 ng/dL 0.93-1.70 MD DorantesPO [id number] 12:58:27 Test Item Value Reference Range Interpretation Comments POC Crea (test 1.2 mg/dL 0.6-1.3 Medications, code = 02236-9) especially hydroxyurea or supplements, han ch as ascorbate, can interfere with test results causing a falsely and significantly h igher result than exp ected. If a problem is suspected with a patient's resul t, a sample [facility] b e [facility]. Method descript ion: The i-STAT is a n analyzer used f or in vitro quantific ation of various anal ytes in whole blood. The device uses a s lindsey disposable cart ridge which contains microfabricated sensors, a calibration che Vidatronic, fluidics system , and a waste chamber . Each test cartridge contains chemic ally sensitive biose nsors on a Sentrinsic ip that are config ured to perform spec ific tests. The microfabricated sensors measure analyte concent ration by an electroch emical assay. POC eGFR-AA (test 70 See_Comment Normal eGF R >= 60 code = 24501-6) mL/min/1.73 m2 The eGFR is calcula mary using the CKD-E PI equation. The e GFR declines with a ge. eGFR <60 mL/min /1.73 m2 is considere d as "decreased" Thi s equation should only be used for pat ients 18 and older. According to e National Kidney Foundation's Ki dney Disease [...] f ailure <15 (or eve lysis) [Automated When You Wish] The system Backspaces generated this result transmitted ref erence range: >=60 mL/min/1.73 m2. The reference range was not used to int erpret this result as normal/abnormal . POC eGFR-JOSELITO 60 See_Comment Normal eGFR >= 60 (test code = mL/min/1.73 m2 The 17175-1) eGFR is calcula mary using the CKD-E [...] f ailure <15 (or eve lysis) [Automated When You Wish] The system Backspaces generated this result transmitted ref erence range: >=60 mL/min/1.73 m2. The reference range was not used to int erpret this result as normal/abnormal . POC Clean Dev Yes (test code = 6672) Performing Lab Radiology [facility] Radiology OP [facility] (test code = [facility] [address]) MD [facility], [address], [place], [place] [address]; Point of Care L ab Director: MD MD Jose E Bedoya
[2021-09-10 12:12] LABS: Absolute Lymphocytes (CBC) 0.6 K/uL (0.7-4.9); Hematocrit 28.5 % (39.6-49.0); Lymphocytes % 8.6 % (15.3-44.8); MPV 7.6 fL (7.6-11.3); RBC Red Blood Cell Count 3.41 M/uL (4.33-5.43)
[2021-09-10] MEDS ORDERED: NA CHLORIDE 0.9% 1,000 ML ONE (12:12)
[2021-09-10 12:14] LABS: Protime INR 1.16
--- NOTE | 2021-09-10 12:18 | RAD REPORT ---
EXAM DESCRIPTION: Garry Single View09/10/2021 12:06 pm CLINICAL HISTORY: Shortness of breath COMPARISON: September 05 2021 FINDINGS: Nodular opacity overlying the right upper lobe probably overlying artifact Mild lingular and left lower lobe opacities without significant change which may represent atelectasi s or infiltrate. This should be followed until it has cleared. The heart is normal size
[2021-09-10 12:31] LABS: ALT/SGPT 26 U/L (12-78); AST/SGOT 22 U/L (15-37); Albumin 2.7 g/dL (3.4-5.0); Alkaline Phosphatase 47 U/L (45-117); BUN Blood Urea Nitrogen 28 mg/dL (7-18); Bicarbonate 33 mmol/L (21-32); Bilirubin Direct 0.3 mg/dL (0-0.2); Bilirubin Total 0.4 mg/dL (0.2-1.0); Glucose Level 212 mg/dL (74-106); Magnesium 1.8 mg/dL (1.8-2.4); NT PRO-BNP 261 pg/mL (<125); Potassium 3.4 mmol/L (3.5-5.1); Protein, Total 6.5 g/dL (6.4-8.2); Sodium Level 133 mmol/L (136-145); Troponin High Sensitivity 14.9 pg/mL (<58.9)
[2021-09-10] MEDS ORDERED: IPRATROPIUM BROM 0.5MG/2.5ML ONE (12:37)
[2021-09-10] MEDS ORDERED: LEVALBUTEROL 1.25 MG/3 ML NEB ONE (12:37)
[2021-09-10] MEDS ORDERED: METHYLPREDNISOLONE 125 MG INJ ONE (12:37)
--- NOTE | 2021-09-10 12:37 | EDPHYS ---
Physician Documentation [facility] Name: Roland Lam Age: 71 yrs Sex: Male : 1950 Arrival Date: 09/10/2021 Time: 11:34 Bed 15 Private MD: ED Physician Jagdeep Dorantes HPI: 09/10 12:30 This 71 yrs old Male presents to ER via Ambulatory with complaints of agustín Breathing Difficulty. 12:30 The patient has shortness of breath at rest. Onset: The symptoms/episode began/occurred agustín 3 day(s) ago. Duration: The symptoms are continuous. The patient's shortness of breath is aggravated by exertion, light activity, supine position, is alleviated by sitting up, application of supplemental oxygen. Associated signs and symptoms: Pertinent positives: non-productive cough. Severity of symptoms: At their worst the symptoms were mild in the emergency department the symptoms are unchanged. The patient has experienced similar episodes in the past, several times. Historical: - Allergies: 11:37 No Known Allergies; ab2 - PMHx: 11:37 CAD; COPD; Diabetes - NIDDM; High Cholesterol; THROAT CA; ab2 - Immunization history:: Adult Immunizations up to date. - Social history:: Smoking status: Patient reports the use of cigarette tobacco products, smokes one pack cigarettes per day. - Family history:: not pertinent. ROS: 12:30 Constitutional: Negative for fever, chills, and weight loss, Eyes: Negative for injury, agustín pain, redness, and discharge, ENT: Negative for injury, pain, and discharge, Neck: Negative for injury, pain, and swelling, Cardiovascular: Negative for chest pain, palpitations, and edema, Abdomen/GI: Negative for abdominal pain, nausea, vomiting, diarrhea, and constipation, Back: Negative for injury and pain, : Negative for injury, bleeding, discharge, and swelling, MS/Extremity: Negative for injury and deformity, Skin: Negative for injury, rash, and discoloration, Neuro: Negative for headache, weakness, numbness, tingling, and seizure, Psych: Negative for depression, anxiety, suicide ideation, homicidal ideation, and hallucinations, Allergy/Immunology: Negative for hives, rash, and allergies, Endocrine: Negative for neck swelling, polydipsia, polyuria, polyphagia, and marked weight changes, Hematologic/Lymphatic: Negative for swollen nodes, abnormal bleeding, and unusual bruising. 12:30 Respiratory: Positive for cough, "sounds productive", shortness of breath, at rest. wheezing, expiratory. Exam: 12:30 Constitutional: This is a well developed, well nourished patient who is awake, alert, agustín and in no acute distress. Head/Face: Normocephalic, atraumatic. Eyes: Pupils equal round and reactive to light, extra-ocular motions intact. Lids and lashes normal. Conjunctiva and sclera are non-icteric and not injected. Cornea within normal limits. Periorbital areas with no swelling, redness, or edema. Neck: Trachea midline, no thyromegaly or masses palpated, and no cervical lymphadenopathy. Supple, full range of motion without nuchal rigidity, or vertebral point tenderness. No Meningismus. Chest/axilla: Normal chest wall appearance and motion. Nontender with no deformity. No lesions are appreciated. Cardiovascular: Regular rate and rhythm with a normal S1 and S2. No gallops, murmurs, or rubs. Normal PMI, no JVD. No pulse deficits. Abdomen/GI: Soft, non-tender, with normal bowel sounds. No distension or tympany. No guarding or rebound. No evidence of tenderness throughout. Back: No spinal tenderness. No costovertebral tenderness. Full range of motion. Skin: Warm, dry with normal turgor. Normal color with no rashes, no lesions, and no evidence of cellulitis. 12:30 ENT: Posterior pharynx: Airway: no evidence of obstruction, hoarse voice, sp chemo / xrt throat cancer. 13:40 ECG was reviewed by the Attending Physician. [facility] Vital Signs: 11:35 BP 140 / 62; Pulse 94; Resp 22; Temp 97.6; Pulse Ox 91% on R/A; Weight 63.5 kg; Height ab2 5 ft. 6 in. (167.64 cm); Pain 0/10; 11:38 Pulse Ox 94% 2 lpm ; ab2 11:35 Body Mass Index 22.60 (63.50 kg, 167.64 cm) ab2 MDM: 11:36 Patient medically screened. [facility] 12:34 Differential diagnosis: Anxiety Reaction Bronchitis Chronic Obstructive Pulmonary agustín Disease pneumonia, pulmonary edema, reactive airway disease. Antibiotic administration: zosyn. The patient's Wells Deep Vein Thrombosis Score was calculated as follows: Malignancy Total Score: 0-2 Pts- Low Risk. The patient's pulmonary embolism risk score was calculated as follows: malignancy Total Score: 0-2 points. This patient was found to be at low risk for a pulmonary embolism by using the Well's assessment criteria. Immunization status: Pneumococcal vaccine: Influenza vaccine: Data reviewed: vital signs, nurses notes, lab test result(s), EKG, radiologic studies, plain films. Data interpreted: [employer]: rate is 94 beats/min, rhythm is atrial fibrillation, Pulse oximetry: on. Test interpretation: by ED physician or midlevel provider: ECG, plain radiologic studies. Counseling: I had a detailed discussion with the patient and/or guardian regarding: the historical points, exam findings, and any diagnostic results supporting the discharge/admit diagnosis, lab results, radiology results, the need for further work-up and treatment in the hospital. 09/10 11:38 Order name: Basic Metabolic Panel 09/10 11:38 Order name: CBC with Diff; Complete Time: 12:16 09/10 11:38 Order name: LFT's 09/10 11:38 Order name: Magnesium 09/10 11:38 Order name: NT PRO-BNP 09/10 11:38 Order name: PT-INR; Complete Time: 12:16 09/10 11:38 Order name: Troponin HS 09/10 11:38 Order name: XRAY Chest (1 view) 09/10 11:38 Order name: SARS-COV-2 RT PCR (Document "Date of Onset" if Symptomatic) 09/10 11:38 Order name: Blood Culture Adult (2) 09/10 11:38 Order name: Lactate 09/10 11:38 Order name: EKG; Complete Time: 11:39 09/10 11:38 Order name: Cardiac monitoring 09/10 11:38 Order name: EKG - Nurse/Tech 09/10 11:38 Order name: IV Saline Lock; Complete Time: 12:01 09/10 11:38 Order name: Labs collected and sent; Complete Time: 12:01 09/10 11:38 Order name: O2 Per Protocol; Complete Time: 11:40 09/10 11:38 Order name: O2 Sat Monitoring; Complete Time: 11:40 09/10 11:38 Order name: Urine Dipstick-Ancillary (obtain specimen) agustín EC:40 Rate is 75 beats/min. Rhythm is regular. QRS [place] is Normal. [place] interval is normal. QRS agustín interval is normal. QT interval is normal. No Q waves. T waves are Normal. No ST changes noted. Clinical impression: NSR w/ Non-specific ST/T Changes and No evidence of ischemia. Interpreted by me. Reviewed by me. Administered Medications: 12:10 Drug: NS 0.9% 1000 ml Route: IV; Rate: 125 ml/hr; Site: right hand; [facility] 12:46 Drug: SOLU-Medrol (methylPrednisoLONE) 125 mg Route: IVP; Site: right hand; [facility] 12:46 Drug: Zosyn (piperacillin-tazobactam) 3.375 grams Route: IVPB; Infused Over: 60 mins; [facility] Site: right hand; 12:46 Drug: Xopenex (levalbuterol) 2.5 mg Route: Inhalation; [facility] 12:46 Drug: AtroVENT (ipratropium) Aerosol 0.5 mg Route: Inhalation; [facility] Disposition Summary: 09/10/21 12:36 Hospitalization Ordered Hospitalization Status: Inpatient Admission agustín Provider: Chandan Rolle cha Location: Telemetry/MedSurg (Inpatient) agustín Condition: Fair agustín Problem: new agustín Symptoms: have improved agustín Bed/Room Type: Standard agustín Room Assignment: 225(09/10/21 14:20) eb Diagnosis - Dyspnea agustín - Hypoxemia agustín - COPD/ Chronic obstructive pulmonary disease with (acute) exacerbation agustín - Type 2 diabetes mellitus with hyperglycemia agustín Forms: - Medication Reconciliation Form agustín - SBAR form agustín Signatures: Dispatcher [employer] Jagdeep Drew MD MD cha Botello, Elizabeth eb Hastedt, Jennifer, RN RN 6 Frandy Lopez2 Corrections: (The following items were deleted from the chart) 14:20 12:36 agustín eb
--- NOTE | 2021-09-10 12:37 | ER ---
Nurse's Notes [facility] Name: Roland Lam Age: 71 yrs Sex: Male : 1950 Arrival Date: 09/10/2021 Time: 11:34 Bed 15 Private MD: Diagnosis: Dyspnea;Hypoxemia;COPD/ Chronic obstructive pulmonary disease with (acute) exacerbation;Type 2 diabetes mellitus with hyperglycemia Presentation: 09/10 11:35 Chief complaint: Patient states: "I have been SOB for 2 days and it has gotten worse. ab2 At home my oxygen was 88." On arrival patients O2 was 91 on room air. Coronavirus screen: Vaccine status: Patient reports receiving the 2nd dose of the covid vaccine. Client denies travel out of the [place] in the last 14 days. At this time, the client does not indicate any symptoms associated with coronavirus-19. Ebola Screen: Patient negative for fever greater than or equal to 101.5 degrees Fahrenheit, and additional compatible Ebola Virus Disease symptoms Patient denies exposure to infectious person. Patient denies travel to an Ebola-affected area in the 21 days before illness onset. No symptoms or risks identified at this time. Initial Sepsis Screen: Does the patient meet any 2 criteria? RR > 20 per min. HR > 90 bpm. Yes Does the patient have a suspected source of infection? Does the patient have a suspected source of infection? No. Patient's initial sepsis screen is negative. Risk Assessment: Do you want to hurt yourself or someone else? Patient reports no desire to harm self or others. Onset of symptoms is unknown. 11:35 Method Of Arrival: Ambulatory ab2 11:35 Acuity: HOWARD 3 ab2 Triage Assessment: 11:38 General: Appears in no apparent distress. uncomfortable. Cardiovascular: Reports ab2 shortness of breath. Respiratory: Reports shortness of breath air hunger labored breathing Airway is patent Respiratory effort is labored, Respiratory pattern is symmetrical. Historical: - Allergies: 11:37 No Known Allergies; ab2 - PMHx: 11:37 CAD; COPD; Diabetes - NIDDM; High Cholesterol; THROAT CA; ab2 - Immunization history:: Adult Immunizations up to date. - Social history:: Smoking status: Patient reports the use of cigarette tobacco products, smokes one pack cigarettes per day. - Family history:: not pertinent. Assessment: 11:37 General: Appears in no apparent distress. uncomfortable, Behavior is calm, cooperative, ab2 appropriate for age. Pain: Denies pain. Neuro: Level of Consciousness is awake, alert, obeys commands, Oriented to person, place, time, situation, Appropriate for age Grading Supervisor are equal bilaterally Moves all extremities. Gait is steady. Cardiovascular: Denies chest pain. Cardiovascular: No deficits noted. Respiratory: Airway is patent Respiratory effort is labored, GI: No deficits noted. No signs and/or symptoms were reported involving the gastrointestinal system. : No deficits noted. No signs and/or symptoms were reported regarding the genitourinary system. EENT: No deficits noted. No signs and/or symptoms were reported regarding the EENT system. Vital Signs: 11:35 BP 140 / 62; Pulse 94; Resp 22; Temp 97.6; Pulse Ox 91% on R/A; Weight 63.5 kg; Height ab2 5 ft. 6 in. (167.64 cm); Pain 0/10; 11:38 Pulse Ox 94% 2 lpm ; ab2 11:35 Body Mass Index 22.60 (63.50 kg, 167.64 cm) ab2 ED Course: 11:34 Patient arrived in ED. jj6 11:36 Jagdeep Dorantes MD is Attending Physician. agustín 11:37 Triage completed. ab2 11:38 Arm band placed on right wrist. ab2 11:39 Oralia Sam, RN is Primary Nurse. jh6 12:07 XRAY Chest (1 view) In Process Unspecified. EDMS 12:19 SARS-COV-2 RT PCR (Document "Date of Onset" if Symptomatic) Sent. mb7 12:35 Chandan Rolle is Hospitalizing Provider. agustín 13:23 EKG done, by ED staff, reviewed by Jagdeep Dorantes MD. mb7 Administered Medications: 12:10 Drug: NS 0.9% 1000 ml Route: IV; Rate: 125 ml/hr; Site: right hand; 6 12:46 Drug: SOLU-Medrol (methylPrednisoLONE) 125 mg Route: IVP; Site: right hand; 6 12:46 Drug: Zosyn (piperacillin-tazobactam) 3.375 grams Route: IVPB; Infused Over: 60 mins; 6 Site: right hand; 12:46 Drug: Xopenex (levalbuterol) 2.5 mg Route: Inhalation; [facility] 12:46 Drug: AtroVENT (ipratropium) Aerosol 0.5 mg Route: Inhalation; [facility] Outcome: 12:36 Decision to Hospitalize by Provider. agustín 17:36 Patient left the ED. 7 Signatures: Dispatcher [employer] EDJagdeep Schmitt MD MD cha Jeffries, Jennifer jj6 Oralia Sam RN RN 6 Yamilex Alcar[facility] [place] Frandy Lopez
[2021-09-10] MEDS ORDERED: NA CHLORIDE 0.9% 100 ML IV ONE (12:38)
[2021-09-10] MEDS ORDERED: PIPERACIL/TAZO 3.375 GM VIAL IV ONE (12:38)
--- NOTE | 2021-09-10 14:23 | P.HP ---
Certification for Inpatient Patient admitted to: Observation With expected LOS: <2 Midnights Practitioner: I am a practitioner with admitting privileges, knowledge of patient current condition, hospital course, and medical plan of care. 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 He has an NG tube in place but has also been trying pured diet and thickened liquids. He reports multiple episodes of aspiration pneumonia. He was discharged from [facility] Dorantes after admission for aspiration pneumonia 10 days ago. He was also in the emergency department 5 days ago for shortness of breath. CTA thorax demonstrated pneumonia. Patient returned to the ED with a complaint of progressive shortness of breath, per sistent cough and poor sleep. His oxygen saturation was 91% on room air. ED provider reports patient was hypoxic on room air and was placed on oxygen by nasal cannula. Chest x-ray today again demonstrate multilobar opacities. No leukocytosis, no sepsis. Patient is hospitalized for further management. Allergies No Known Allergies Allergy (Verified 03/28/21 08:07) Home Medications: Albuterol Inhaler [Ventolin Inhaler] 2 puff IH Q6H PRN 03/24/21 Aspirin [Aspirin EC 81 MG] 81 mg PO DAILY 03/24/21 Budesonide/Formoterol Fumarate [Symbicort 80-4.5 Mcg Inhaler] 1 puff IH DAILY 03/24/21 Cholecalciferol (Vitamin D3) [Vitamin D 5,000 Iu Cap] 5,000 unit PO DAILY 03/24/21 Clopidogrel Bisulfate [Plavix] 75 mg PO DAILY 03/24/21 Fenofibrate 50 mg PO DAILY 03/24/21 Ferrous Sulfate [Iron] 325 mg PO DAILY 03/24/21 Losartan Potassium [Cozaar] 50 mg PO DAILY 03/24/21 Metformin HCl [Glucophage] 500 mg PO BIDWM 03/24/21 Metoprolol Tartrate [Lopressor] 25 mg PO BID 03/24/21 Simvastatin 10 mg PO DAILY 03/24/21 Zinc 50 mg PO DAILY 03/24/21 - Past Medical/Surgical History -: DM type II -: Hypertension -: Laryngeal cancer -: Peripheral vascular disease -: Iliac artery stent - Family History Mother -: Cancer - Social History Smoking Status: Current every day smoker Alcohol use: No CD- Drugs: No Place of Residence: Home Review of Systems Other: Except as documented, all other systems reviewed and negative. Physical Examination - Physical Exam General: Alert, In no apparent distress, Oriented x3 HEENT: Normocephalic, Other (NG tube), Sclerae nonicteric Neck: Supple, JVD not distended Respiratory: Clear to auscultation bilaterally, Normal air movement Cardiovascular: No edema, Regular rate/rhythm, Normal S1 S2, No murmurs Capillary refill: <2 Seconds Gastrointestinal: Normal bowel sounds, Soft and benign, Non-distended, No tenderness Musculoskeletal: No swelling, No tenderness Integumentary: No rashes, No cyanosis Neurological: Normal strength at 5/5 x4 extr, Cranial nerves 3-12 intact, Other (Hoarse voice) Lymphatics: No axilla or inguinal lymphadenopathy - Studies Laboratory Data (last 24 hrs) 09/10/21 12:04: PT 12.8 H, INR 1.16 09/10/21 12:04: WBC 6.9 D, Hgb 9.3 L, Hct 28.5 L, Plt Count 246 09/10/21 12:04: Sodium 133 L, Potassium 3.4 L, BUN 28 H, Creatinine 0.79, Glucose 212 H, Magnesium 1.8 D, Total Bilirubin 0.4, AST 22, ALT 26, Alkaline Phosphatase 47 Assessment and Plan - Problems (Diagnosis) (1) Aspiration pneumonia Current Visit: Yes Status: Acute (2) COPD exacerbation Current Visit: Yes Status: Acute (3) History of laryngeal cancer Current Visit: Yes Status: Acute (4) DM type 2 (diabetes mellitus, type 2) Current Visit: Yes Status: Acute (5) Hypertension Current Visit: Yes Status: Acute - Plan Admit patient to the medical floor. Patient with COPD exacerbation and aspiration pneumonia. Will treat with IV Levaquin and Zosyn Bronchodilators. IV steroids NG tube in place for medications of fluid. Pured diet Speech therapy consult Insulin sliding scale for glucose management Titrate oxygen. Collect, validate and reconcile home medications. - Advance Directives Does patient have a Living Will: No Does patient have a Durable POA for Healthcare: No
[2021-09-10] MEDS: ALBUTEROL 2.5 MG/3 ML NEB SOL NEB SCH ×2 (18:09→19:40)
[2021-09-10] MEDS: IPRATROPIUM BROM 0.5MG/2.5ML NEB SCH ×2 (18:09→19:40)
[2021-09-10] MEDS ORDERED: ACETAMINOPHEN 500 MG TAB PO PRN (18:09)
[2021-09-10] MEDS: PIPER TAZO 3.375 GM in NA CHLORIDE 0.9% 100 ML IV SCH (19:05)
[2021-09-10] MEDS: METHYLPREDNISOLONE 40 MG INJ IV SCH (19:05)
[2021-09-10] MEDS: INSULIN -REGULAR HUMAN 50 UNIT/0.5 ML ML SQ SCH ×2 (19:05→22:44)
[2021-09-10] MEDS: Levofloxacin 750mg IV 750 MG/150 ML BAG IV SCH (19:05)
[2021-09-10 19:56] VITALS: BMI 22.6
[2021-09-10] MEDS: ONDANSETRON 4 MG/2 ML VIAL IV PRN (20:52)
[2021-09-10] MEDS ORDERED: POTASSIUM 25 MEQ EFFERV TAB PO ONE (21:00)
[2021-09-10] MEDS ORDERED: cloNIDine HCL 0.1 MG TAB FT PRN (23:22)
[2021-09-10] MEDS ORDERED: HOME MED 1 EA UNK (Albuterol Inhaler [Ventolin Inhaler*] 60 PUFF/8 GM Hfa.Aer.Ad) IH PRN (23:22)
[2021-09-10] MEDS ORDERED: METFORMIN HCL 500 MG TAB FT PRN (23:22)
[2021-09-11] MEDS: PIPER TAZO 3.375 GM in NA CHLORIDE 0.9% 100 ML IV SCH ×3 (01:00→16:43)
[2021-09-11] MEDS: METHYLPREDNISOLONE 40 MG INJ IV SCH ×3 (01:01→16:44)
[2021-09-11] MEDS: ALBUTEROL 2.5 MG/3 ML NEB SOL NEB SCH ×4 (01:20→19:40)
[2021-09-11] MEDS: IPRATROPIUM BROM 0.5MG/2.5ML NEB SCH ×6 (01:20→19:40)
[2021-09-11] MEDS ORDERED: [UNRECOGNIZED DRUG - OTHER] IH PRN (05:27)
[2021-09-11] MEDS ORDERED: ALBUTEROL IH PRN (05:27)
[2021-09-11 06:10] LABS: Absolute Lymphocytes (CBC) 0.3 K/uL (0.7-4.9); Hematocrit 26.9 % (39.6-49.0); Lymphocytes % 5.9 % (15.3-44.8); MPV 7.6 fL (7.6-11.3); RBC Red Blood Cell Count 3.24 M/uL (4.33-5.43)
[2021-09-11 06:27] LABS: BUN Blood Urea Nitrogen 23 mg/dL (7-18); Bicarbonate 33 mmol/L (21-32); Glucose Level 146 mg/dL (74-106); Potassium 4.2 mmol/L (3.5-5.1); Sodium Level 135 mmol/L (136-145)
[2021-09-11 06:28] LABS: HDL Cholesterol 52 mg/dL (40-60); LDL Cholesterol, Calculated 26 mg/dL (<130); Magnesium 1.8 mg/dL (1.8-2.4)
[2021-09-11] MEDS: INSULIN -REGULAR HUMAN 50 UNIT/0.5 ML ML SQ SCH ×4 (08:44→23:47)
[2021-09-11] MEDS: FERROUS SULFATE 325 MG TAB PO SCH (08:47)
[2021-09-11] MEDS: GABAPENTIN 300 MG CAP FT SCH ×3 (08:47→22:06)
[2021-09-11] MEDS: CETIRIZINE HCL 5 MG TABLET FT SCH (08:47)
[2021-09-11] MEDS: ASPIRIN EC 81 MG TAB PO SCH (08:47)
[2021-09-11] MEDS: CLOPIDOGREL 75 MG TABLET FT SCH (08:47)
[2021-09-11] MEDS: ENOXAPARIN 40 MG/0.4 ML SQ SCH (08:47)
[2021-09-11] MEDS: FOLIC ACID 1 MG TABLET FT SCH (08:48)
[2021-09-11 08:52] LABS: Anisocytosis SLIGHT; Blood Morphology Comment NOTED (NOT SEEN); Hypochromasia 1+; Platelet Estimate ADEQ; White Blood Cell Scan OK (OK)
[2021-09-11] MEDS: POLYETHYL GLY 3350 17 GM/DOSE FT SCH ×3 (08:58→21:00)
[2021-09-11] MEDS ORDERED: MAGNESIUM SULFATE 1 gm IVPB 1 GM/100 ML BAG IV ONE (09:00)
[2021-09-11] MEDS: LANSOPRAZOLE 30 MG FT SCH (09:00)
[2021-09-11] MEDS ORDERED: AMLODIPINE 10 MG TAB FT SCH (09:00)
[2021-09-11] MEDS: THIAMINE HCL 100 MG TABLET FT SCH (09:00)
[2021-09-11] MEDS: Budesonide/Formoterol Fumarate [Symbicort 80-4.5 Mcg Inhaler] 10.2 GM H IH SCH ×2 (09:00→21:00)
[2021-09-11] MEDS: POTASSIUM CHLORIDE 20 MEQ/15 ML FT SCH (09:00)
[2021-09-11] MEDS: NICOTINE 21 MG/PAT TD SCH (11:06)
[2021-09-11] MEDS ORDERED: LACTOSE-REDUCED FOOD 330 ML LIQUID PO SCH ×3 (12:00→17:00)
[2021-09-11] MEDS: LACTOSE-REDUCED FOOD 330 ML LIQUID PO SCH (12:00)
--- NOTE | 2021-09-11 13:47 | P.PN ---
Subjective Date of Service: 09/11/21 Chief Complaint: Shortness of breath No major changes from yesterday. Patient complaining of shortness of breath. He reports he has been aspirating thin liquids. Physical Examination - Vital Signs Temperature: 97.3 F Blood Pressure: 131/54 Pulse: 85 Respirations: 12 Pulse Ox (%): 97 - Studies Laboratory Data (last 24 hrs) 09/11/21 05:33: Sodium 135 L, Potassium 4.2, BUN 23 H, Creatinine 0.76, Glucose 146 H, Phosphorus 4.0, Magnesium 1.8, Triglycerides 46, Cholesterol 87, HDL Cholesterol 52, Cholesterol/HDL Ratio 1.67 09/11/21 05:33: WBC 4.7 D, Hgb 8.9 L, Hct 26.9 L, Plt Count 222 Microbiology Data (last 24 hrs): 09/10/21 11:45 Blood - Blood Anaerobic Blood Culture - Final Assessment And Plan - Current Problems (Diagnosis) (1) Aspiration pneumonia Current Visit: Yes Status: Acute (2) COPD exacerbation Current Visit: Yes Status: Acute (3) History of laryngeal cancer Current Visit: Yes Status: Acute (4) DM type 2 (diabetes mellitus, type 2) Current Visit: Yes Status: Acute (5) Hypertension Current Visit: Yes Status: Acute - Plan Physical Exam General: Alert, In no apparent distress, Oriented x3 HEENT: NG tube in place, Sclerae nonicteric Neck: Supple, JVD not distended Respiratory: Clear to auscultation bilaterally, Normal air movement Cardiovascular: No edema, Regular rate/rhythm, Normal S1 S2, No murmurs Gastrointestinal: Normal bowel sounds, Soft and benign, Non-distended, No tenderness Musculoskeletal: No swelling, No tenderness Integumentary: No rashes, No cyanosis Neurological: Normal strength at 5/5 x4 extr, Hoarse voice. Plan Patient with COPD exacerbation and aspiration pneumonia. Continue IV Levaquin and Zosyn Bronchodilators. Continue IV steroids Feeding via NG tube Nothing by mouth Speech therapy consult is pending Insulin sliding scale for glucose management Titrate oxygen. Continue other home medications.
[2021-09-11] MEDS: Levofloxacin 750mg IV 750 MG/150 ML BAG IV SCH (18:18)
[2021-09-11] MEDS: [UNRECOGNIZED DRUG - OTHER] FT SCH (21:00)
[2021-09-11] MEDS: ONDANSETRON 4 MG/2 ML VIAL IV PRN (22:06)
[2021-09-11] MEDS: ROSUVASTATIN 10 MG TAB FT SCH (22:06)
[2021-09-11] MEDS: ZOLPIDEM TARTRATE 5 MG TABLET PO PRN (22:06)
[2021-09-12] MEDS: IPRATROPIUM BROM 0.5MG/2.5ML NEB SCH ×8 (01:50→20:00)
[2021-09-12] MEDS: ALBUTEROL 2.5 MG/3 ML NEB SOL NEB SCH ×5 (01:50→19:20)
[2021-09-12] MEDS: PIPER TAZO 3.375 GM in NA CHLORIDE 0.9% 100 ML IV SCH ×3 (02:58→17:31)
[2021-09-12] MEDS: METHYLPREDNISOLONE 40 MG INJ IV SCH ×3 (02:59→15:00)
[2021-09-12 04:38] LABS: Absolute Lymphocytes (CBC) 0.5 K/uL (0.7-4.9); Hematocrit 27.1 % (39.6-49.0); Lymphocytes % 7.1 % (15.3-44.8); MPV 7.8 fL (7.6-11.3); RBC Red Blood Cell Count 3.25 M/uL (4.33-5.43)
[2021-09-12 04:44] LABS: BUN Blood Urea Nitrogen 34 mg/dL (7-18); Bicarbonate 31 mmol/L (21-32); Glucose Level 110 mg/dL (74-106); Magnesium 2.2 mg/dL (1.8-2.4); Sodium Level 136 mmol/L (136-145)
[2021-09-12] MEDS: INSULIN -REGULAR HUMAN 50 UNIT/0.5 ML ML SQ SCH ×4 (07:30→22:00)
[2021-09-12] MEDS ORDERED: LACTOSE-REDUCED FOOD 330 ML LIQUID PO SCH ×2 (08:00)
[2021-09-12] MEDS: POLYETHYL GLY 3350 17 GM/DOSE FT SCH ×3 (09:00→20:34)
[2021-09-12] MEDS: GABAPENTIN 300 MG CAP FT SCH ×4 (09:00→20:32)
[2021-09-12] MEDS: FERROUS SULFATE 325 MG TAB PO SCH (09:00)
[2021-09-12] MEDS: Budesonide/Formoterol Fumarate [Symbicort 80-4.5 Mcg Inhaler] 10.2 GM H IH SCH ×2 (09:00→21:00)
[2021-09-12] MEDS: POTASSIUM CHLORIDE 20 MEQ/15 ML FT SCH (09:00)
[2021-09-12] MEDS: CLOPIDOGREL 75 MG TABLET FT SCH (09:00)
[2021-09-12] MEDS: ENOXAPARIN 40 MG/0.4 ML SQ SCH (09:00)
[2021-09-12] MEDS: LANSOPRAZOLE 30 MG FT SCH (09:00)
[2021-09-12] MEDS: NICOTINE 21 MG/PAT TD SCH (09:13)
[2021-09-12] MEDS: ONDANSETRON 4 MG/2 ML VIAL IV PRN (09:13)
[2021-09-12] MEDS: THIAMINE HCL 100 MG TABLET FT SCH (09:15)
[2021-09-12] MEDS: CETIRIZINE HCL 5 MG TABLET FT SCH (09:15)
[2021-09-12] MEDS: PROCHLORPERAZINE 5 MG TAB PO PRN (09:15)
[2021-09-12] MEDS: FOLIC ACID 1 MG TABLET FT SCH (09:16)
[2021-09-12] MEDS: ASPIRIN EC 81 MG TAB PO SCH (09:16)
--- NOTE | 2021-09-12 09:42 | EKG ---
Test Date: 2021-09-10 Test Time: 13:20:22 [employer]elry Department Supervisor: MB MEASUREMENT RESULTS: Intervals: Rate: 75 VA: 184 QRSD: 90 QT: 388 QTc: 433 [place]: P: 74 VA: 184 QRS: 78 T: 50 INTERPRETIVE STATEMENTS: Sinus rhythm with premature atrial complexes RSR' or QR pattern in V1 suggests right ventricular conduction delay Borderline ECG Compared to ECG 09/05/2021 09:39:54 Atrial premature complex(es) now present RSR' in V1 or V2 now present Electronically Signed On 09-12-21 09:36:06 CDT by tK German
[2021-09-12] MEDS: LACTOSE-REDUCED FOOD 330 ML LIQUID PO SCH (12:00)
--- NOTE | 2021-09-12 13:46 | P.PN ---
Subjective Date of Service: 09/12/21 Chief Complaint: Shortness of breath Patient reports cough productive of yellow sputum He states the shortness of breath has improved significantly. No issues overnight. No fever. He is currently tolerating room air. Physical Examination - Vital Signs Temperature: 97.2 F Blood Pressure: 120/54 Pulse: 90 Respirations: 18 Pulse Ox (%): 93 - Studies Microbiology Data (last 24 hrs): 09/10/21 11:45 Blood - Blood Anaerobic Blood Culture - Final Assessment And Plan - Current Problems (Diagnosis) (1) Aspiration pneumonia Current Visit: Yes Status: Acute (2) COPD exacerbation Current Visit: Yes Status: Acute (3) History of laryngeal cancer Current Visit: Yes Status: Acute (4) DM type 2 (diabetes mellitus, type 2) Current Visit: Yes Status: Acute (5) Hypertension Current Visit: Yes Status: Acute - Plan Physical Exam General: Alert, In no apparent distress. HEENT: NG tube in place, Sclerae nonicteric Neck: JVD not distended Respiratory: Clear to auscultation bilaterally, Normal air movement Cardiovascular: No edema, Regular rate/rhythm, Normal S1 S2, No murmurs Gastrointestinal: Normal bowel sounds, Soft and benign, Non-distended, No tenderness Musculoskeletal: No swelling, No tenderness Integumentary: No rashes, No cyanosis Neurological: Normal strength at 5/5 x4 extr, Hoarse voice. Plan Patient with COPD exacerbation and aspiration pneumonia. Continue IV antibiotics. Continue bronchodilators. Continue IV steroids Feeding via NG tube Nothing by mouth. GI-Dr. Mae consulted for PEG tube placement Speech therapy input appreciated. Patient should tolerate pured diet and thickened liquids. Insulin sliding scale for glucose management Continue other home medications.
[2021-09-12] MEDS: GLUCERNA 1.5 CAL 1,000 ML BOT FT SCH ×2 (17:33→20:33)
[2021-09-12] MEDS: ROSUVASTATIN 10 MG TAB FT SCH (20:32)
[2021-09-12] MEDS: ONDANSETRON 4 MG (ODT) TAB FT PRN (20:32)
[2021-09-12] MEDS: [UNRECOGNIZED DRUG - OTHER] FT SCH (20:37)
[2021-09-12] MEDS: ZOLPIDEM TARTRATE 5 MG TABLET PO PRN (22:49)
[2021-09-13] MEDS: PIPER TAZO 3.375 GM in NA CHLORIDE 0.9% 100 ML IV SCH ×3 (01:09→16:54)
[2021-09-13] MEDS: METHYLPREDNISOLONE 40 MG INJ IV SCH ×3 (01:09→16:54)
[2021-09-13] MEDS: ALBUTEROL 2.5 MG/3 ML NEB SOL NEB SCH ×4 (01:30→19:31)
[2021-09-13] MEDS: IPRATROPIUM BROM 0.5MG/2.5ML NEB SCH ×6 (01:30→19:31)
[2021-09-13 05:42] LABS: Absolute Lymphocytes (CBC) 0.2 K/uL (0.7-4.9); Hematocrit 27.4 % (39.6-49.0); Lymphocytes % 4.5 % (15.3-44.8); MPV 7.8 fL (7.6-11.3); RBC Red Blood Cell Count 3.28 M/uL (4.33-5.43)
[2021-09-13 05:52] LABS: Potassium 3.9 mmol/L (3.5-5.1)
[2021-09-13] MEDS: INSULIN -REGULAR HUMAN 50 UNIT/0.5 ML ML SQ SCH ×4 (07:30→20:21)
--- NOTE | 2021-09-13 07:38 | P.PN ---
Date of Service: 09/13/21 Subjective: Feels breathing has significantly improved Still feels congestion in his chest Unable to have PEG tube placed today, received Plavix a few days ago Feels breathing treatments have helped the most ROS: 10 point ROS as noted above, otherwise negative Physical exam GEN: Alert, oriented, NAD HEENT: Normal conjunctiva, sclera anicteric; NGT in place CV: Regular rate and rhythm, no edema Pulm: mild labored respirations on room air, b/l crackles, diminished at bases bilaterally ABD: Soft, nontender, nondistended Neuro: hoarse voice, normal affect Problem List Pneumonia, concern for aspiration Acute on chronic COPD exacerbation History of laryngeal cancer Diabetes mellitus type 2 Hypertension Continue IV antibiotics for possible aspiration pneumonia Continue bronchodilators and steroids Feeding via NG tube Nothing by mouth PEG tube postponed due to recent Plavix Plan for PEG tube on Speech therapy following Insulin sliding scale, continue other chronic home medications repeat CXR today Code: full Dispo: home likely sunday, PEG planned for Time Spent Managing Pts Care (In Minutes): 35
[2021-09-13] MEDS ORDERED: ALBUTEROL 2.5 MG/3 ML NEB SOL ONE (08:01)
[2021-09-13] MEDS ORDERED: IPRATROPIUM BROM 0.5MG/2.5ML ONE (08:02)
[2021-09-13] MEDS ORDERED: NA CHLORIDE 0.9% 1,000 ML ONE (08:05)
--- NOTE | 2021-09-13 08:06 | RAD REPORT ---
EXAM DESCRIPTION: RAD - Chest Single View - 09/13/2021 8:00 am CLINICAL HISTORY: f/u opacities, ?aspiration pneumonia COMPARISON: Chest Single View dated 09/10/2021; Chest Single View dated 09/05/2021; Chest Single View da mary 07/15/2021; Chest Single View dated 07/15/2021 FINDINGS: Lines: None. Lungs: No evidence of edema or pneumonia. Pleural: No significant pleural effusions or pneumothorax. Cardiac: The heart size is within normal limits. Bones: No acute fractures. Other: IMPRESSION: No acute cardiopulmonary disease.
[2021-09-13] MEDS: POLYETHYL GLY 3350 17 GM/DOSE FT SCH ×3 (09:00→20:21)
[2021-09-13] MEDS: POTASSIUM CHLORIDE 20 MEQ/15 ML FT SCH (09:00)
[2021-09-13] MEDS: LANSOPRAZOLE 30 MG FT SCH (09:00)
[2021-09-13] MEDS: CLOPIDOGREL 75 MG TABLET FT SCH (09:00)
[2021-09-13] MEDS: Budesonide/Formoterol Fumarate [Symbicort 80-4.5 Mcg Inhaler] 10.2 GM H IH SCH ×2 (09:00→20:21)
[2021-09-13] MEDS: GLUCERNA 1.5 CAL 1,000 ML BOT FT SCH ×4 (09:00→20:21)
[2021-09-13] MEDS: ENOXAPARIN 40 MG/0.4 ML SQ SCH (10:05)
[2021-09-13] MEDS: AMLODIPINE 10 MG TAB FT PRN ×2 (10:05→22:19)
[2021-09-13] MEDS: FERROUS SULFATE 325 MG TAB PO SCH (10:06)
[2021-09-13] MEDS: FOLIC ACID 1 MG TABLET FT SCH (10:06)
[2021-09-13] MEDS: CETIRIZINE HCL 5 MG TABLET FT SCH (10:06)
[2021-09-13] MEDS: ASPIRIN EC 81 MG TAB PO SCH (10:06)
[2021-09-13] MEDS: GABAPENTIN 300 MG CAP FT SCH ×3 (10:06→20:20)
[2021-09-13] MEDS: THIAMINE HCL 100 MG TABLET FT SCH (10:06)
[2021-09-13] MEDS: NICOTINE 21 MG/PAT TD SCH (10:06)
[2021-09-13] MEDS: ONDANSETRON 4 MG (ODT) TAB FT PRN ×2 (10:13→20:20)
[2021-09-13] MEDS: PROCHLORPERAZINE 5 MG TAB PO PRN (17:24)
[2021-09-13] MEDS: ROSUVASTATIN 10 MG TAB FT SCH (20:19)
[2021-09-13] MEDS: [UNRECOGNIZED DRUG - OTHER] FT SCH (20:24)
[2021-09-13] MEDS: ZOLPIDEM TARTRATE 5 MG TABLET PO PRN (22:19)
[2021-09-14] MEDS: METHYLPREDNISOLONE 40 MG INJ IV SCH ×3 (00:35→16:30)
[2021-09-14] MEDS: PIPER TAZO 3.375 GM in NA CHLORIDE 0.9% 100 ML IV SCH ×3 (00:35→16:30)
[2021-09-14] MEDS: ALBUTEROL 2.5 MG/3 ML NEB SOL NEB SCH ×4 (01:28→19:35)
[2021-09-14] MEDS: IPRATROPIUM BROM 0.5MG/2.5ML NEB SCH ×4 (01:28→19:35)
[2021-09-14 06:32] LABS: Absolute Lymphocytes (CBC) 0.2 K/uL (0.7-4.9); Hematocrit 26.8 % (39.6-49.0); Lymphocytes % 4.2 % (15.3-44.8); MPV 7.7 fL (7.6-11.3); RBC Red Blood Cell Count 3.27 M/uL (4.33-5.43)
[2021-09-14 06:40] LABS: Magnesium 2.2 mg/dL (1.8-2.4); Potassium 3.8 mmol/L (3.5-5.1)
--- NOTE | 2021-09-14 06:48 | P.PN ---
Date of Service: 09/14/21 Subjective: Feels breathing continues to improve CXR improved reports some heartburn ROS: 10 point ROS as noted above, otherwise negative Physical exam GEN: Alert, oriented, NAD HEENT: Normal conjunctiva, sclera anicteric; NGT in place CV: Regular rate and rhythm, no edema Pulm: mild labored respirations on room air, diminished at bases bilaterally ABD: Soft, nontender, nondistended Neuro: hoarse voice, normal affect Problem List acute hypoxemic respiratory failure secondary to pulmonary edema and pneumonia, possible aspiration Acute on chronic COPD exacerbation History of laryngeal cancer Diabetes mellitus type 2 Hypertension Continue IV antibiotics for possible aspiration pneumonia Continue bronchodilators and steroids Feeding via NG tube Nothing by mouth PEG tube postponed due to recent Plavix Plan for PEG tube tomorrow; hold feeds tonight, NPO Speech therapy following Insulin sliding scale, continue other chronic home medications repeat CXR 09/13 with significant improvement Code: full Dispo: home possibly tomorrow vs sunday pending peg tube placement Time Spent Managing Pts Care (In Minutes): 35
[2021-09-14 08:24] LABS: White Blood Cell Scan OK (OK)
[2021-09-14 08:25] LABS: Anisocytosis 1+; Blood Morphology Comment NOTED (NOT SEEN); Platelet Estimate ADEQ
[2021-09-14] MEDS: LANSOPRAZOLE 30 MG FT SCH (09:00)
[2021-09-14] MEDS: POLYETHYL GLY 3350 17 GM/DOSE FT SCH ×3 (09:00→21:00)
[2021-09-14] MEDS: GLUCERNA 1.5 CAL 1,000 ML BOT FT SCH ×3 (09:00→16:29)
[2021-09-14] MEDS: POTASSIUM CHLORIDE 20 MEQ/15 ML FT SCH (09:00)
[2021-09-14] MEDS: Budesonide/Formoterol Fumarate [Symbicort 80-4.5 Mcg Inhaler] 10.2 GM H IH SCH ×2 (09:00→21:00)
[2021-09-14] MEDS: ONDANSETRON 4 MG (ODT) TAB FT PRN ×2 (09:24→16:28)
[2021-09-14] MEDS: INSULIN -REGULAR HUMAN 50 UNIT/0.5 ML ML SQ SCH ×4 (09:27→22:22)
[2021-09-14] MEDS: FOLIC ACID 1 MG TABLET FT SCH (09:32)
[2021-09-14] MEDS: ASPIRIN EC 81 MG TAB PO SCH (09:32)
[2021-09-14] MEDS: THIAMINE HCL 100 MG TABLET FT SCH (09:32)
[2021-09-14] MEDS: FERROUS SULFATE 325 MG TAB PO SCH (09:32)
[2021-09-14] MEDS: GABAPENTIN 300 MG CAP FT SCH ×3 (09:33→22:21)
[2021-09-14] MEDS: CETIRIZINE HCL 5 MG TABLET FT SCH (09:33)
[2021-09-14] MEDS: PROCHLORPERAZINE 5 MG TAB PO PRN (09:33)
[2021-09-14] MEDS: ENOXAPARIN 40 MG/0.4 ML SQ SCH (09:35)
[2021-09-14] MEDS: NICOTINE 21 MG/PAT TD SCH (09:37)
[2021-09-14] MEDS: FAMOTIDINE 20 MG/2 ML VIAL IV SCH ×2 (11:13→22:21)
[2021-09-14] MEDS: [UNRECOGNIZED DRUG - OTHER] FT SCH (21:00)
[2021-09-14] MEDS: ZOLPIDEM TARTRATE 5 MG TABLET PO PRN (22:21)
[2021-09-14] MEDS: ROSUVASTATIN 10 MG TAB FT SCH (22:21)
[2021-09-15] MEDS: METHYLPREDNISOLONE 40 MG INJ IV SCH ×3 (00:35→16:25)
[2021-09-15] MEDS: PIPER TAZO 3.375 GM in NA CHLORIDE 0.9% 100 ML IV SCH ×3 (00:35→16:25)
[2021-09-15] MEDS: ALBUTEROL 2.5 MG/3 ML NEB SOL NEB SCH ×5 (01:14→19:35)
[2021-09-15] MEDS: IPRATROPIUM BROM 0.5MG/2.5ML NEB SCH ×5 (01:14→19:35)
[2021-09-15 06:01] LABS: Hematocrit 29.1 % (39.6-49.0); RBC Red Blood Cell Count 3.48 M/uL (4.33-5.43)
[2021-09-15 06:17] LABS: Albumin 2.7 g/dL (3.4-5.0); Bilirubin Total 0.3 mg/dL (0.2-1.0); Potassium 4.4 mmol/L (3.5-5.1); Protein, Total 6.1 g/dL (6.4-8.2)
--- NOTE | 2021-09-15 06:38 | P.PN ---
Date of Service: 09/15/21 Subjective: s/p PEG placement this morning, noted to have esophageal ulcer as well doing ok breathing comfortably ROS: 10 point ROS as noted above, otherwise negative Physical exam GEN: Alert, oriented, NAD HEENT: Normal conjunctiva, sclera anicteric; CV: Regular rate and rhythm, no edema Pulm: non-labored respirations on room air, diminished at bases bilaterally ABD: Soft, PEG placed Neuro: hoarse voice, normal affect Problem List acute hypoxemic respiratory failure secondary to pulmonary edema and pneumonia, possible aspiration Acute on chronic COPD exacerbation History of laryngeal cancer Diabetes mellitus type 2 Hypertension Continue IV antibiotics for possible aspiration pneumonia Continue bronchodilators and steroids PEG tube postponed due to recent Plavix. placed 09/15 GI recommends monitoring overnight Speech therapy following Insulin sliding scale, continue other chronic home medications repeat with significant improvement Code: full Dispo: home likely tomorrow Time Spent Managing Pts Care (In Minutes): 35
[2021-09-15] MEDS: INSULIN -REGULAR HUMAN 50 UNIT/0.5 ML ML SQ SCH ×4 (07:30→21:00)
[2021-09-15] MEDS: FOLIC ACID 1 MG TABLET FT SCH (07:31)
[2021-09-15] MEDS: POLYETHYL GLY 3350 17 GM/DOSE FT SCH ×3 (07:31→20:21)
[2021-09-15] MEDS: LANSOPRAZOLE 30 MG FT SCH (07:31)
[2021-09-15] MEDS: FERROUS SULFATE 325 MG TAB PO SCH (07:31)
[2021-09-15] MEDS: GABAPENTIN 300 MG CAP FT SCH ×3 (07:31→20:20)
[2021-09-15] MEDS: ASPIRIN EC 81 MG TAB PO SCH (07:31)
[2021-09-15] MEDS: THIAMINE HCL 100 MG TABLET FT SCH (07:32)
[2021-09-15] MEDS: CETIRIZINE HCL 5 MG TABLET FT SCH (07:32)
[2021-09-15] MEDS: POTASSIUM CHLORIDE 20 MEQ/15 ML FT SCH (07:32)
--- NOTE | 2021-09-15 07:47 | RAD REPORT ---
EXAM DESCRIPTION: RAD - Chest Single View - 09/15/2021 5:47 am CLINICAL HISTORY: SOB, f/u opacities COMPARISON: Portable September 13, September 10 and September 05 TECHNIQUE: AP portable chest image was obtained 09/15/2021 5:47 am . FINDINGS: No new or progressive lung parenchymal finding. Lung markings are similar or improved when comparing with September 10. Heart and vasculature are normal. No measurable pleural effusion and no pneumothorax. No acute bony abnormality seen. No acute aortic findings suspected. IMPRESSION: No acute cardiopulmonary process identified. No new or progressive finding from September 13.
[2021-09-15] MEDS ORDERED: NA CHLORIDE 0.9% 1,000 ML ONE (08:48)
[2021-09-15] MEDS: FAMOTIDINE 20 MG/2 ML VIAL IV SCH ×2 (09:00→20:20)
[2021-09-15] MEDS: Budesonide/Formoterol Fumarate [Symbicort 80-4.5 Mcg Inhaler] 10.2 GM H IH SCH ×2 (09:00→21:00)
[2021-09-15] MEDS ORDERED: LIDOCAINE 1% MPF 5 ML VIAL ONE (09:20)
[2021-09-15] MEDS ORDERED: propofoL 200 MG/20 ML VIAL IV ONE ×2 (09:20)
[2021-09-15] MEDS: MORPHINE 4 MG/ML SYR ONE ×3 (10:07→10:16)
[2021-09-15] MEDS: TRAMADOL HCL 50 MG TAB FT PRN ×2 (12:35→16:24)
[2021-09-15] MEDS: NICOTINE 21 MG/PAT TD SCH (12:36)
[2021-09-15] MEDS: MORPHINE 2 MG/ML SYR IV PRN (18:14)
[2021-09-15] MEDS: ZOLPIDEM TARTRATE 5 MG TABLET PO PRN (20:20)
[2021-09-15] MEDS: ROSUVASTATIN 10 MG TAB FT SCH (20:20)
[2021-09-15] MEDS: AMLODIPINE 10 MG TAB FT PRN (20:30)
[2021-09-15] MEDS: [UNRECOGNIZED DRUG - OTHER] FT SCH (21:00)
[2021-09-16] MEDS: PIPER TAZO 3.375 GM in NA CHLORIDE 0.9% 100 ML IV SCH ×2 (01:01→09:53)
[2021-09-16] MEDS: METHYLPREDNISOLONE 40 MG INJ IV SCH (01:02)
[2021-09-16] MEDS: MORPHINE 2 MG/ML SYR IV PRN ×2 (01:02→01:29)
[2021-09-16] MEDS: ALBUTEROL 2.5 MG/3 ML NEB SOL NEB SCH ×3 (01:25→13:48)
[2021-09-16] MEDS: IPRATROPIUM BROM 0.5MG/2.5ML NEB SCH ×3 (01:25→13:48)
--- NOTE | 2021-09-16 01:33 | OP ---
Surgeon: Cale Mae MD Procedure Performed: Esophagogastroduodenoscopy with PEG placement. Indications For Procedure: Dysphagia, failure to thrive. Plan For Anesthesia: Monitored anesthesia care. Complexity: High due to nature of the procedure. Technique: After obtaining informed consent from the patient and explaining risks and complications, which include, but are not limited to bleeding, infection, perforation, and anesthesia complications , the patient was placed in the left lateral position. Sedation was given. Subsequently, the scope was advanced to the mouth and the esophagus was attempted to be intubated. There was mild resistance that was felt at the upper esophageal sphincter level not due to the stricture, but it appeared to b e ulcerated mass lesion, which may be related to the patient's primary tumor with gentle maneuvering. The scope was able to pass beyond this without exerting any significant pressure. Subsequently, th e scope was passed to the second portion of the duodenum. After completion of the examination portio n, the feeding tube was placed as below. Then, the scope was withdrawn while carefully examining the mucosa and procedure was terminated in a safe manner. Findings: Esophagus: In the proximal esophagus around the upper esophageal sphincter level, an ulce rated mass lesion was seen. This was biopsied. In the distal esophagus, a small hiatal hernia was s een. Stomach: Minimal erythema was seen in the body and antrum. Duodenum: The bulb and second portion had evidence of mild duodenitis. Attention was then focused back to the gastric body, and then with the help of transillumination and one-to-one pressure, a good site for PEG tube placement was identified, and then under aseptic precau tions, a 20-[place] [employer] removable PEG tube was placed with a pull guidewire technique. After injecting the subcutaneous tissue with 3 cc of lidocaine, the position of the PEG tube was conf irmed with repeat endoscopy. No bleeding was seen at that site. Complications: None. Tolerance To Anesthesia: Excellent. Postoperative Diagnoses: Hiatal hernia, gastritis, status post PEG placement, esophageal stricture d ue to ulcerated mass lesion, status post biopsy. Estimated Blood Loss: Minimal. Plan: Await pathology results. N.p.o. for today. He is going to start diet through feeding tube fr om tomorrow along with after consultation with Nutrition for recommendation of type of feeding. Keep abdominal binder. Head of bed to elevate at 45 degrees as well. We will obtain an x-ray of the nec k/chest to rule out any extraluminal air due to the mass lesion in the esophagus, which did pose mild resistance to passage of the scope. US/MODL Voice ID: [id number] Report ID: [id number]
[2021-09-16 06:14] LABS: Magnesium 2.1 mg/dL (1.8-2.4); Potassium 4.2 mmol/L (3.5-5.1)
[2021-09-16] MEDS: INSULIN -REGULAR HUMAN 50 UNIT/0.5 ML ML SQ SCH ×2 (07:30→11:30)
[2021-09-16] MEDS: LANSOPRAZOLE 30 MG FT SCH (09:00)
[2021-09-16] MEDS: POTASSIUM CHLORIDE 20 MEQ/15 ML FT SCH (09:00)
[2021-09-16] MEDS ORDERED: GLUCERNA 1.5 CAL 1,000 ML BOT FT SCH ×2 (09:00→13:00)
[2021-09-16] MEDS: Budesonide/Formoterol Fumarate [Symbicort 80-4.5 Mcg Inhaler] 10.2 GM H IH SCH (09:00)
--- NOTE | 2021-09-16 09:40 | RAD REPORT ---
EXAM DESCRIPTION: RAD - Neck Soft Tissue - 09/16/2021 9:23 am CLINICAL HISTORY: f/u opacities, r/o esoph perforation COMPARISON: Chest Pa And Lat (2 Views) dated 09/16/2021; Chest For Pe Angio dated 09/05/2021 FINDINGS/IMPRESSION: Possible prevertebral gas on the lateral view. There also seems to be some mass effect posteriorly on the esophagus and upper trachea. Recommend neck CT for further evaluation. No foreign body identified.
[2021-09-16] MEDS: NICOTINE 21 MG/PAT TD SCH (09:50)
[2021-09-16] MEDS: CETIRIZINE HCL 5 MG TABLET FT SCH (09:51)
[2021-09-16] MEDS: POLYETHYL GLY 3350 17 GM/DOSE FT SCH ×2 (09:51→14:00)
[2021-09-16] MEDS: ONDANSETRON 4 MG (ODT) TAB FT PRN (09:52)
[2021-09-16] MEDS: GABAPENTIN 300 MG CAP FT SCH ×2 (09:54→14:31)
[2021-09-16] MEDS: FOLIC ACID 1 MG TABLET FT SCH (09:54)
[2021-09-16] MEDS: THIAMINE HCL 100 MG TABLET FT SCH (09:54)
[2021-09-16] MEDS: FERROUS SULFATE 325 MG TAB PO SCH (09:54)
[2021-09-16] MEDS: ASPIRIN EC 81 MG TAB PO SCH (09:55)
[2021-09-16] MEDS: FAMOTIDINE 20 MG/2 ML VIAL IV SCH (09:55)
--- NOTE | 2021-09-16 10:06 | RAD REPORT ---
EXAM DESCRIPTION: RAD - Chest Pa And Lat (2 Views) - 09/16/2021 9:23 am CLINICAL HISTORY: f/u opacities, r/o esoph perforation / pneumothora COMPARISON: Chest Single View dated 09/15/2021; Chest Single View dated 09/13/2021; Chest Single View dated 09/10/2021; Chest Single View dated 09/05/2021 FINDINGS: Lines: None. Lungs: No evidence of edema or pneumonia. Pleural: No significant pleural effusions or pneumothorax. Cardiac: The heart size is within normal limits. Bones: No acute fractures. Spurring in the thoracic spine. Other: IMPRESSION: No acute cardiopulmonary disease. No pneumothorax.
--- NOTE | 2021-09-16 10:56 | RAD REPORT ---
EXAM DESCRIPTION: CT - Soft Tissue Neck Wo Contr CLINICAL HISTORY: r/o esophageal perforation COMPARISON: Chest For Pe Angio dated 09/05/[address] scans are performed using dose optimization technique as appropriate and may includ e automated exposure control or mA/KV adjustment according to patient size. FINDINGS: No soft tissue gas identified. Apparent thickening on the neck radiograph corresponded to decompressed though thickened proximal esophagus. No findings to suggest perforation. No thyroid nodules. No lymphadenopathy identified. No mastoid effusions. The paranasal sinuses are we ll aerated. No parotid or submandibular lesions are identified. Emphysema noted in the lung apices. IMPRESSION: No evidence of esophageal perforation or acute findings. Emphysema. The USPTF recommends annual screening for lung cancer with low-dose CT (LDCT) in adults ag ed 50 to 80 years who have a 20 pack-year smoking history and currently smoke or have quit within the past 15 years. Note that the patient just had a chest CT on 09/05/2021.
[2021-09-16 14:49] VITALS: O2SAT 92
--- NOTE | 2021-09-16 16:24 | P.DS ---
Admission Date: 09/11/21 Discharge Date: 09/16/21 Disposition: DC HOME/HOME HEALTH CARE Discharge Condition: GOOD Reason for Admission: Shortness of breath Vital Signs/Physical Exam: Temp Pulse Resp BP Pulse Ox 97.0 F 86 18 152/66 H 97 09/16/21 12:00 09/16/21 12:00 09/16/21 12:00 09/16/21 12:00 09/16/21 12:00 Laboratory Data at Discharge: WBC 6.6 K/uL (4.3-10.9) D 09/15/21 05:45 Hgb 9.4 g/dL (13.6-17.9) L 09/15/21 05:45 Hct 29.1 % (39.6-49.0) L 09/15/21 05:45 Plt Count 206 K/uL (152-406) 09/15/21 05:45 PT 12.8 SECONDS (9.5-12.5) H 09/10/21 12:04 INR 1.16 09/10/21 12:04 Sodium 139 mmol/L (136-145) 09/16/21 05:37 Potassium 4.2 mmol/L (3.5-5.1) 09/16/21 05:37 BUN 24 mg/dL (7-18) H 09/16/21 05:37 Creatinine 0.90 mg/dL (0.55-1.3) 09/16/21 05:37 Glucose 154 mg/dL (74-106) H 09/16/21 05:37 Phosphorus 4.0 mg/dL (2.5-4.9) 09/11/21 05:33 Magnesium 2.1 mg/dL (1.8-2.4) 09/16/21 05:37 Total Bilirubin 0.3 mg/dL (0.2-1.0) 09/15/21 05:45 AST 17 U/L (15-37) 09/15/21 05:45 ALT 20 U/L (12-78) 09/15/21 05:45 Alkaline Phosphatase 46 U/L (45-117) 09/15/21 05:45 Triglycerides 46 mg/dL (<150) 09/11/21 05:33 Cholesterol 87 mg/dL (<200) 09/11/21 05:33 HDL Cholesterol 52 mg/dL (40-60) 09/11/21 05:33 Cholesterol/HDL Ratio 1.67 09/11/21 05:33 Home Medications: Albuterol Inhaler [Ventolin Inhaler*] 2 puff IH Q6H PRN 03/24/21 Aspirin [Aspirin EC 81 MG] 81 mg FT DAILY 03/24/21 Budesonide/Formoterol Fumarate [Symbicort 80-4.5 Mcg Inhaler] 2 puff IH BID 03/24/21 Clopidogrel Bisulfate [Plavix*] 75 mg FT DAILY 03/24/21 Fenofibrate 50 mg FT DAILY 03/24/21 Ferrous Sulfate [Iron] 325 mg FT DAILY 03/24/21 Metformin HCl [Glucophage*] 500 mg FT BID PRN 03/24/21 Amlodipine [Norvasc*] 10 mg FT DAILY 09/10/21 Cetirizine HCl 10 mg FT DAILY 09/10/21 Clonidine HCl [Clonidine HCl ER] 0.1 mg FT PRN PRN 09/10/21 Folic Acid 1 mg FT DAILY 09/10/21 Gabapentin 300 mg FT TID 09/10/21 Lactose-Reduced Food [Ensure Complete] 375 ml FT SEECOM 09/10/21 Lactose-Reduced Food [Ensure Complete] 500 ml FT DAILY 09/10/21 Lansoprazole 30 mg FT DAILY 09/10/21 Magnesium Oxide 500 mg FT DAILY 09/10/21 Nicotine [Nicoderm Cq] 1 each TD DAILY 09/10/21 Polyethyl Gly 3350 [Glycolax*] 17 gm FT TID 09/10/21 Potassium Chloride 30 ml FT DAILY 09/10/21 Potassium-Sodium Phosphates 1 packet FT BEDTIME 09/10/21 Prochlorperazine Maleate [Compazine] 5 mg FT Q4H PRN 09/10/21 Rosuvastatin Calcium 40 mg FT BEDTIME 09/10/21 Thiamine HCl 100 mg FT DAILY 09/10/21 Tramadol HCl [Ultram] 50 mg FT Q4H PRN 09/10/21 ondansetron HCL [Ondansetron HCl] 8 mg FT Q8H PRN 09/10/21 Amox Tr/Potassium Clavulanate [Augmentin 400-57 mg/5 ml] 10 ml FT BID 7 Days #14 ml 09/16/21 New Medications: Amox Tr/Potassium Clavulanate [Augmentin 400-57 mg/5 ml] 10 ml FT BID 7 Days #14 ml Physician Discharge Instructions: Patient was treated empirically for suspected aspiration pneumonia. He had significant improvement in respiratory status with antibiotics, nebulizers, and steroids. bilateral opacities resolved quickly. He was having diffficulty swallowing with an NG tube for several weeks. GI was consulted and patient had PEG tube placed on 09/15. Patient tolerated glucerna 237ml bolus feed without issue. Recommend continuing Glucerna 1.5 (237ml) 4 times a day. Per internet sourcer recommendations. flush with at least 60ml of water before and after each feeding to provide a total of 1200ml water/day. PEG tube placement was complicated by ulcerated mass and swelling of proximal esophagus. There was some difficulty initially passing scope, but was able to be completed. Post-op x-ray was done and noted possible prevertebral air. CT neck was performed and did not reveal any acute findings, no perforation / free air. Patient was clinically doing much better. Dr. Mae (GI) recommended nothing by mouth. PEG feeds only. Biopsy performed. Follow up with Oncology. Followup: Alanna Bullard DO [Primary Care Provider] -
[2021-09-16 16:43] VITALS: BP 158/68; TEMP 97.4
== END 2021-09-16 17:30 | disposition home health service (06) | DRG 177 ==
LOC: ER 11:30 → ERHOLD 13:50 → 2ND 17:04 → OBSVTOIN 09-11 11:26
PROVIDERS: ADMIT Internal Medicine; ATTEND Internal Medicine
PROC: 0DH63UZ Insertion of Feeding Device into Stomach, Percutaneous Approach (ICD-10-PCS; 2021-09-15)
PROC: 0DB18ZX Excision of Upper Esophagus, Via Natural or Artificial Opening Endoscopic, Diagnostic (ICD-10-PCS; principal; 2021-09-15 09:15)
DX: J69.0 Pneumonitis due to inhalation of food and vomit (principal); J96.01 Acute respiratory failure with hypoxia; E43 Unspecified severe protein-calorie malnutrition; J44.1 Chronic obstructive pulmonary disease with (acute) exacerbation; K22.10 Ulcer of esophagus without bleeding; E11.9 Type 2 diabetes mellitus without complications; K29.80 Duodenitis without bleeding; K44.9 Diaphragmatic hernia without obstruction or gangrene; K29.70 Gastritis, unspecified, without bleeding; K22.2 Esophageal obstruction; I10 Essential (primary) hypertension; F17.210 Nicotine dependence, cigarettes, uncomplicated; Z68.22 Body mass index [BMI] 22.0-22.9, adult; Z85.21 Personal history of malignant neoplasm of larynx; Z20.822 Contact with and (suspected) exposure to COVID-19
CPT/HCPCS: 36415; 70360; 70490; 71045; 71046; 80048; 80053; 80061; 80076; 82947; 83605; 83735; 83880; 84100; 84484; 85025; 85027; 85610; 87040; 88305; 92610; 93005; 94640; 94760; 96374; 96375; 99284; G0378; J1650; J1815; J2270; J2405; J2543; J2704; J2920; J2930; J3475; J3490; J7030; Q0164; U0003

== ENCOUNTER 2021-09-28 14:42 | Emergency (ER) | payer OTHER ==
--- OUTSIDE RECORDS SUMMARY | 2021-09-28 14:49 | XMS REPORT | Clinical Summary ---
:1950 Author Organization [facility] MD [facility] Address [address] [place] [address] Care Team Providers Name Role Phone Olivia Coleman DO Unavailable Slava Canseco MD Primary Care Provider MD Thang Unavailable Samantha Polk MD Unavailable Nirmal Davenport RD Unavailable Laurie Maurer CERTIFIED PHLEBOTOMY TECHNICIAN Unavailable Hilario Lam MD Unavailable Joesph Payan MD Unavailable Allergies No known active allergies Medications Medication Sig Dispensed Refills Start Date End Date Status cetirizine (ZyrTEC) TAKE ONE (1) 0 03/15/2021 Active 10 mg tablet TABLET(S) BY MOUTH ONCE A DAY. clopidogrel (PLAVIX) TAKE ONE (1) 0 03/15/2021 Active 75 mg tablet TABLET(S) BY MOUTH ONCE A DAY. Dexilant 60 mg TAKE ONE (1) 0 04/13/2021 A ctive capsule CAPSULE(S) BY MOUTH DAILY. metFORMIN TAKE ONE (1) 0 04/19/2021 Active (GLUCOPHAGE) 500 mg TABLET(S) BY MOUTH tablet TWICE A DAY. fluoride, sodium, Apply to teeth 51 g 20 05/06/2021 Active (PREVIDENT) 1.1 % twice daily. dental Cooks teeth with creamIndications: cream and spit out Primary squamous as directed. 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 albuterol (VENTOLIN Inhale 2 puffs by 0 Active HFA,PROAIR HFA) 90 mouth every 6 mcg/puff inhaler (six) hours as needed. aspirin 81 mg EC Take 81 mg by 0 04/25/2010 Active tablet mouth. budesonide-formotero Inhale 2 puffs by 0 Active l (SYMBICORT) mouth twice daily. 160-4.5 Patient usually mcg/actuation does it once a day inhaler at night. ondansetron (ZOFRAN) Take 1 tablet (8 30 tablet 05/17/2021 1 07/18/2021 Active 8 mg mg) by mouth every tabletIndications: 8 (eight) hours as Primary squamous needed for nausea cell carcinoma of or vomiting. larynx triamcinolone Apply 1 453.6 g 0 05/25/2021 Activ e (KENALOG) ointment application 0.1%Indications: topically to Primary squamous affected area(s) cell carcinoma of twice daily. larynx, Radiation dermatitis Additional Information Patient not taking. Reason: No longer taking, Reported on 09/23/2021 ferrous sulfate (iron) 325 mg 0 08/16/2017 Active (65 mg elemental iron per tablet) tablet lidocaine (XYLOCAINE) 20 Swish and swallow 5 mL 100 mL 2 Active mg/mL (2%) viscous every 4 (four) hours as solutionIndications: Oral needed (throat pain). mucositis due to radiation Additional Information Patient not taking. Reason: No longer taking, Reported on 09/23/2021 magnesium oxide 500 mg Take 1 tablet (500 30 tablet 1 06/15/19 Active tabletIndications: Primary mg) by mouth daily. squamous cell carcinoma of larynx, Hypomagnesemia rosuvastatin (CRESTOR) 40 mg daily. 0 06/25/2021 Active tablet losartan (COZAAR) 100 mg tablet daily. 0 06/24/19 Active polyethylene glycol (GLYCOLAX) 17 Take 17 g by mouth 3 510 g 3 06/29/2021 Active gram/dose powderIndications: (three) times a day. Primary squamous cell carcinoma of larynx, Constipation, not otherwise specified Additional Information Patient not taking. Reason: No longer taking, Reported on 09/23/2021 cloNIDine HCl (Catapres) 0.1 mg Take 1 tablet (0.1 mg) 10 tablet 0 07/01/2021 Active tabletIndications: Hypertension by mouth 3 (three) times a day as needed for high blood pressure (Systolic blood pressure over 180, diastolic over 110). amLODIPine (NORVASC) 10 mg Give 1 tablet (10 mg) 30 tablet 3 0 07/13/2021 Active tabletIndications: Essential per NG-tube daily. hypertension folic acid (FOLVITE) 1 mg Take 1 tablet (1 mg) 30 tablet 3 02/2022 Active tabletIndications: Hypokalemia, by mouth daily. Hypomagnesemia, Hypophosphatemia, Folate deficiency potassium-sodium phosphates Give 1 packet per 30 packet 0 01/2022 Active (PHOS-NAK) 280 mg-160 mg-250 mg NG-tube twice daily. powderIndications: Hypokalemia, Mix contents of 1 Hypomagnesemia, packet of the powder Hypophosphatemia in 2 and 1/2 ounces (75 mL) of water or juice. Stir until completely dissolved and drink the mixture right away after mixing. Do not save for later use. Additional Information Patient not taking. Reason: No longer taking, Reported on 09/23/2021 thiamine (VITAMIN B-1) 100 mg tab Take 1 tablet (100 30 tablet 0 07/13/2021 Active tabletIndications: Hypokalemia, mg) by mouth daily. Hypomagnesemia, Hypophosphatemia potassium chloride (KAYCIEL) 20 Give 30 mL (40 mEq) 900 mL 0 07/12/2021 Active mEq/15 mL solutionIndications: per NG-tube daily. Hypokalemia Additional Information Patient not taking. 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 Nicoderm CQ 21 mg/24 hr Apply 1-2 patches to 56 patch 0 08/04 Active transdermal patchIndications: skin and change patch Nicotine dependence daily as directed for tobacco cessation (alternate sites). HYDROcodone-acetaminophen Take 1-2 tablets by 240 tablet 0 Active (Keyport) 5 mg-325 mg per mouth every 8 (eight) tabletIndications: Oral hours as needed for mucositis due to radiation severe pain. gabapentin (NEURONTIN) 300 mg TAKE ONE (1) 90 capsule 1 2021 Active capsuleIndications: Primary CAPSULE(S) BY MOUTH squamous cell carcinoma of THREE TIMES A DAY. 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 Additional Information Patient not taking. Reason: No longer taking, Reported on 09/23/2021 pantoprazole (PROTONIX) 40 mg Take 1 tablet (40 mg) 30 tablet 3 08/31/2021 Active EC tabletIndications: by mouth every morning Aspiration pneumonia before breakfast. Additional Information Patient not taking. Reason: No longer taking, Reported on 09/23/2021 diazePAM (VALIUM) 5 Take 5 mg by 0 03/29/20212021 Discontinued mg tablet mouth as (Stop Taki ng at needed. Discharge) fenofibrate TAKE ONE (1) 0 02/08/2021 08/31/2021 Dis continued nanocrystallized TABLET(S) BY (Stop Taking at (TRICOR) 145 mg MOUTH ONCE A D ischarge) tablet DAY. losartan (COZAAR) 50 Take 100 mg by 0 04/16/2021 Discontinued mg tablet mouth daily. (Dose adjustment ) metoprolol tartrate TAKE ONE (1) 0 04/19/20212021 Discontinued (LOPRESSOR) 50 mg TABLET(S) BY (Stop Taking at tablet MOUTH TWICE A Discha rge) DAY WITH FOOD. montelukast TAKE ONE (1) 0 04/07/2021 08/31/2021 Dis continued (SINGULAIR) 10 mg TABLET(S) BY (Stop Taking at tablet MOUTH ONCE A Dischar ge) DAY. simvastatin (ZOCOR) TAKE ONE (1) 0 03/09/20212021 Discontinued 10 mg tablet TABLET(S) BY (Dis continued by MOUTH EVERY another EVENING. clinician) tadalafil (CIALIS) Take 20 mg by 0 022 Discontinued 20 mg tablet mouth. (Error) Nicoderm CQ 21 mg/24 Apply 1 patch 28 patch 0 05/09/202110/2021 Discontinued hr transdermal to skin and (Re order) patchIndications: change patch Nicotine dependence daily as directed for tobacco cessation (alternate sites). prochlorperazine Take 1 tablet 60 tablet 05/17/2021 07/13/19 22 Discontinued (Compazine) 10 mg (10 mg) by tabletIndications: mouth every 6 Primary squamous (six) hours as cell carcinoma of needed for larynx nausea or vomiting (if not controlled by Ondansetron). gabapentin Take 1 capsule 90 capsule 1 05/25/2021 08/22/2021 D iscontinued (Neurontin) 300 mg (300 mg) by capsuleIndications: mouth 3 Primary squamous (three) times cell carcinoma of a day. 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 guaiFENesin Take 10 mL 473 mL 3 06/13/2021 08/29/2021 Disco ntinued (ROBITUSSIN) 100 (200 mg) by ( Error) mg/5 mL mouth 4 (four) syrupIndications: times a day. Primary squamous cell carcinoma of larynx, Thick sputum traMADol (ULTRAM) 50 Take 1 tablet 60 tablet 0 06/15/202107/06 Discontinued mg (50 mg) by tabletIndications: mouth every 4 Oral mucositis due (four) hours to radiation as needed for moderate pain or severe pain. cloNIDine HCl Take 1 tablet 10 tablet 0 06/22/2021 07/01/2021 Discontinued (Catapres) 0.1 mg (0.1 mg) by (Reorder) tabletIndications: mouth 3 Hypertension (three) times a day as needed for high blood pressure (Systolic blood pressure over 180, diastolic over 110). glycopyrrolate Take 1 tablet 90 tablet 1 06/29/2021 07/12/2021 Discontinued (RobinuL) 1 mg (1 mg) by (Stop Taking at tabletIndications: mouth 4 (four) Discharge) Primary squamous times a day. cell carcinoma of larynx, Thick sputum senna-docusate Take 1-3 100 tablet 3 06/29/2021 08/31/2021 Di scontinued (SENOKOT-S) 8.6 tablets by (St op Taking at mg-50 mg mouth twice Discharg e) tabletIndications: daily. Primary squamous cell carcinoma of larynx, Constipation, not otherwise specified amoxicillin-clavulan Take 1 tablet 2 tablet 0 07/13/20210 01/2022 Discontinued ate (Augmentin) 875 (875 mg) by (Reorder) mg-125 mg per mouth daily tabletIndications: for 2 doses. Acute hypoxemic respiratory failure, Aspiration pneumonia amoxicillin-clavulan Take 1 tablet 5 tablet 0 07/12/202107/05 ate (Augmentin) 875 (875 mg) by mg-125 mg per mouth twice tabletIndications: daily [...] Encounters Date Type Specialty Care Team Description 09/26/2021 Documentation Nutrition Adele Christensen 09/23/2021 Hospital Encounter Head and Neck Ene Polk Primary squamous cell carcinoma of larynx (Primary Dx); Surgery MD Samantha Abnormal findin gs on diagnostic imaging of skull and head, not elsewhere classified 09/23/2021 Hospital Encounter Radiology Ene Polk M, MD oropharyngeal phase Roberta Ortega, [facility]-FIELD ADMINISTRATIVE ASSISTANT 09/23/2021 Travel 09/22/2021 Orders Only Nutrition Ethel, 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); Camilla Kinney RD Laryngopharynge al reflux; Chronic obstruc tive pulmonary disease, not otherwise specified; Severe protein- calorie malnutrition, not otherwise specified; Aspiration pneu monia; Hypomagnesemia; Type 2 diabetes mellitus without complication; Swallowing pain ful 09/21/2021 Office Visit Head and Neck Jean Marie Christy, Primary squa mous cell Medical Oncology carcinoma o f larynx 09/21/2021 Hospital Encounter Proton Therapy Slava Canseco Primary squamous cell MD Nick carcinoma of la rynx 09/21/2021 Documentation Nutrition Camilla Davenport, RD 09/21/2021 Travel 09/20/2021 Hospital Encounter Vascular Access Slava Canseco and Procedures MD Loy Romero Craig S, VANESSA 09/20/2021 Hospital Encounter Radiology Rj, Primary s quamous cell Alexandra, PA carcinoma of la rynx 09/20/2021 Hospital Encounter Audiology Slava Canseco Sensorine ural hearing MD Nick loss, bilateral Kerline, (Primary Dx) Candy, AuD 09/20/2021 Hospital Encounter Lab Rj, Primary s quamous cell Alexandra, PA carcinoma of la rynx 09/20/2021 Orders Only Radiation Rj, Primary squamou s cell Oncology Alexandra, PA carcinoma of la rynx (Primary Dx) 09/20/2021 Telephone Proton Therapy Wayne Castro, KWAN 09/20/2021 Travel 09/16/2021 Orders Only Gastroenterology Caprice Garcia Personal hi story of , Hepatology & OUMAR Holm colonic polyp (Primary Nutrition Dx) 09/15/2021 Orders Only Proton Therapy Rj, Primary squam ous cell Alexandra, PA carcinoma of la rynx (Primary Dx) 09/15/2021 Telephone Proton Therapy Wayne Castro RN 09/08/2021 Documentation Head and Neck Clemons, Surgery Huan H 09/07/2021 Slava Gallagher MD Ruzensky, Debra A, RD 09/07/2021 Documentation Speech Pathology Kita Campos, CCC-FIELD ADMINISTRATIVE ASSISTANT 09/07/2021 Documentation Speech Pathology Crista Connolly, DAHIANA-FIELD ADMINISTRATIVE ASSISTANT 09/07/2021 Orders Only Head and Neck Erasto, 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); Medical Oncology Anca H, CERTIFIED PHLEBOTOMY TECHNICIAN Dysphagia , oropharyngeal phase 09/06/2021 Hospital Encounter Speech Pathology Antonella De La Rosa led (Patient Alexandra, PA Request) Crista Connolly CCC-FIELD ADMINISTRATIVE ASSISTANT 09/06/2021 Documentation Speech Pathology Crista Connolly, DAHIANA-FIELD ADMINISTRATIVE ASSISTANT 09/06/2021 Documentation Speech Pathology Crista Connolly, CCC-FIELD ADMINISTRATIVE ASSISTANT 09/05/2021 Nutrition Slava Witt MD Ruzensky, Debra A, RD 09/05/2021 Telephone Nutrition Camilla Davenport, RD 09/02/2021 Telephone Radiation Rj, Oncology OUMAR Morris 09/01/2021 Telephone April Wylie Discharge Cal l RN 08/31/2021 Orders Only Gastroenterology Michael Lam , Hepatology & MD Hilario Nutrition 08/30/2021 Orders Only Speech Pathology Caprice Nolen M, [facility]-FIELD ADMINISTRATIVE ASSISTANT oropharyngeal p hase (Primary Dx) 08/29/2021 Anesthesia Event Endoscopy Sara Deras, Zach Knox, MANAGER STRATEGY 08/29/2021 Surgery Endoscopy Michael Lam DIAGNOSTIC UPP VINCE Rich, GASTROINTOSMIN Mcintosh ENDOSCOPY 08/26/2021 Prep for Surgery Gastroenterology Harman, Elizabeth, Iron de ficiency , Hepatology & PAPER LATCHER anemia, not o therwise Nutrition specified (Prim tisha Dx) 08/25/2021 Hospital Encounter General Internal Vu, Hilario Garzon, Chron ic obstructive pulmonary disease (Primary Dx); - Medicine MD Primary squamous cell carcinoma of laryn x; 08/31/2021 Alta Ferrell Type 2 diabete s mellitus without complication; MD Elza Anemia; Rain, Iron deficiency anemia, not otherwise specified; Olegario Gamez MD Aspiration pneumonia Cintia Mancia MD Franco Vega, Maria, MD Rubio, David, MD Fortique, Carla, MD 08/25/2021 Ancillary Procedure Radiology Slava Canseco Aspirati on pneumonia; MD Nick Primary squamou s cell carcinoma of larynx 08/25/2021 Documentation Speech Pathology Sara Lim, DAHIANA-FIELD ADMINISTRATIVE ASSISTANT 08/25/2021 Telephone Proton Therapy Wayne Castro RN 08/25/2021 Orders Only Proton Therapy Alexandra De La Rosa PA 08/25/2021 Orders Only Proton Therapy Davina Perez PA 08/25/2021 Orders Only Proton Therapy Dick Perez squam ous cell OUMAR Rodriguez carcinoma of larynx (Primary Dx) 08/25/2021 Travel 08/23/2021 Telephone Proton Therapy Wayne Castro RN 08/22/2021 Hospital Encounter Speech Pathology Brandee De La Rosa ry squamous cell OUMAR Morris carcinoma of larynx Rebecca Brown [facility]-FIELD ADMINISTRATIVE ASSISTANT 08/22/2021 Orders Only Radiation Rj, Primary squamou [...] 08/08/2021 Documentation Head and Neck Clemons, Surgery [facility] 08/02/2021 Nutrition Slava Witt Primary squamou s cell MD Nick carcinoma of larynx Camilla Davenport RD 08/02/2021 Documentation Nutrition Adele Christensen 08/02/2021 Orders Only Prosper Davenport Primary squamou s cell carcinoma of larynx [...] 07/25/2021 Documentation Head and Neck Clemons, Surgery [facility] 07/25/2021 Refill Proton Therapy Slava Canseco 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 Nick radiation 07/19/2021 Nutrition Slava Witt MD Ruzensky, Debra A, RD 07/15/2021 Telephone Proton Therapy Wayne Casrto, RN 07/13/2021 Telemedicine Head and Neck Yumi Desir, [facility] Medical Oncology carcinoma of larynx Anca Maurer CERTIFIED PHLEBOTOMY TECHNICIAN 07/13/2021 Telephone Thoracic Erasto, Medicine Anca Sullivan CERTIFIED PHLEBOTOMY TECHNICIAN 07/13/2021 Orders Only Head and Neck Yumi Desir, Medical Oncology 07/12/2021 Orders Only Head and Neck Eliza Booth, Primary squamo cell Medical processor grain carcinoma o f larynx (Primary Dx) 07/08/2021 Hospital Encounter GIM/Phase 1 Josette Vasquez, Primary squamous cell carcinoma of larynx (Primary Dx); - MD Syncope; 07/12/2021 Eugene, Hypokalemia; Madelin Hypomagnesemia; MD [...] Only Proton Therapy Dick De La Rosa PA carcinoma of la rynx (Primary Dx) 07/07/2021 Orders Only Radiation Slava Canseco MD 07/07/2021 Travel 07/06/2021 Infusion Infusion Dick De La Rosa s cell Services OUMAR Morris carcinoma of larynx Ballena, (Primary Dx) Ten Rivera, RN 07/06/2021 Nutrition Nutrition Slava Canseco MD Nancy, Maame Jamil RD 07/06/2021 Office Visit Head and Neck Slava Canseco Primary squamo us cell Medical Oncology MD Nick carcinoma of larynx Erasto, Anca Sullivan, CERTIFIED PHLEBOTOMY TECHNICIAN 07/06/2021 Hospital Encounter Vascular Access Slava Canseco [...] Canseco MD 07/04/2021 Hospital Encounter Lab Yumi Desir Primary squamous cell carcinoma of la rynx 07/04/2021 Travel 07/01/2021 Hospital Encounter Proton Therapy Slava Canseco MD 07/01/2021 Hospital Encounter Proton Therapy Rj, Primary squamous cell carcinoma of larynx; OUMAR Morris Severe protein- calorie malnutrition, not otherwise specified 07/01/2021 Documentation Speech Pathology Crista Connolly, [facility]-FIELD ADMINISTRATIVE ASSISTANT 07/01/2021 Telephone Radiation Andring, Oncology Caprice Antonio [...] MD 06/23/2021 Travel 06/23/2021 Documentation Proton Therapy NancyMaame RD 06/23/2021 Orders Only Head and Neck Erasto, Primary squamo us cell Medical Oncology Anca Sullivan APN carcinoma of larynx (Primary Dx) 06/22/2021 Emergency Emergency Jerel, Hypertension (P rimary Dx); Jason Cramer MD Type 2 diabetes mellitus without complication; Primary squamou s cell carcinoma of larynx 06/22/2021 Hospital Encounter Proton Therapy Slava Canseco MD 06/22/2021 Travel 06/21/2021 Hospital Encounter Proton Therapy Slava Canseco MD 06/21/2021 Hospital Encounter Proton Therapy Rj, Primary squamous cell Alexandra, OUMAR carcinoma of larynx Slava Canseco MD 06/21/2021 Documentation Radiation Slava Canseco MD 06/21/2021 Travel 06/20/2021 Hospital Encounter Infusion Yumi Desir, Primary squamous cell Services MD carcinoma of larynx Panganiban, (Primary Dx) Sam Garzon RN 06/20/2021 Hospital Encounter Lab Yumi Desir, Primary squamous cell MD carcinoma of la rynx 06/20/2021 Travel 06/17/2021 Hospital Encounter Proton Therapy Slava Canseco MD 06/17/2021 Orders Only Head and Neck Alyse Polk Medical Oncology Savannah, Denise 06/17/2021 Orders Only Proton Therapy Rj, Primary squam ous cell Alexandra, PA carcinoma of la rynx (Primary Dx) 06/17/2021 Travel 06/16/2021 Hospital Encounter Proton Therapy Slava Canseco MD 06/16/2021 Travel 06/15/2021 Office Visit Head and Neck Slava Canseco Hypomagnesemia (Primary Dx); Medical Oncology MD Nick Primary squamous cell carcinoma of laryn x Anca Maurer APN 06/15/2021 Hospital Encounter Speech Pathology Ene Polk M, MD oropharyngeal phase Christy Chavez, [facility]-FIELD ADMINISTRATIVE ASSISTANT 06/15/2021 Hospital Encounter Proton Slava Landa MD 06/15/2021 Hospital Encounter Proton Therapy Slava Canseco MD 06/15/2021 Documentation Proton Therapy Maame Cruz RD 06/15/2021 Orders Only Radiation Slava Canseco Oral mucositis due to Oncology MD Nick radiation (Prim tisha Dx) 06/15/2021 Orders Only Proton Therapy Tatyanamoira, Primary squam [...] Slava Landa MD 06/13/2021 Hospital Encounter Proton Therapy Slava Canseco MD 06/13/2021 Hospital Encounter Lab Yumi Desir, [...] OUMAR Morris carcinoma of larynx Crista Connolly, CCC-FIELD ADMINISTRATIVE ASSISTANT 06/08/2021 Office Visit Head and Neck Yumi [...] Therapy Slava Canseco MD 06/02/2021 Documentation Radiation Garden, Romeo Oncology MD Skinny 06/02/2021 Travel 06/01/2021 Office [...] Maame Jamil RD 05/31/2021 Hospital Encounter Proton Slava Landa MD [...] Slava Landa MD 05/25/2021 Hospital Encounter Proton Therapy Slava Canseco MD 05/25/2021 Orders Only Proton Therapy Rj [...] larynx Jacob, (Primary Dx) Roc Bertrand III, KWAN 05/23/2021 Hospital Encounter Lab Yumi Desir, Primary squamous cell MD carcinoma of la rynx 05/23/2021 Hospital Encounter Proton Therapy Slava Canseco MD 05/23/2021 Travel 05/22/2021 Hospital Encounter Proton Therapy Slava Canseco MD 05/22/2021 Documentation Radiation Patrick Caprice Oncology MD Dulce 05/22/2021 Travel 05/19/2021 Nutrition Nutrition Slava Canseco MD Nancy, Maame Jamil, ANDRÉS 05/19/2021 Orders Only Head and Neck Ene Polk, Surgery MD Samantha oropharyngeal p hase (Primary Dx) 05/18/2021 Hospital Encounter Radiology Rj, Primary s quamous cell OUMAR Morris carcinoma of larynx Cady Zuleta, [facility]-FIELD ADMINISTRATIVE ASSISTANT 05/18/2021 Travel 05/16/2021 Hospital Encounter Proton Therapy Slava Canseco MD 05/16/2021 Orders Only Head and Neck Erasto, Medical Oncology Anca Sullivan APN 05/16/2021 Documentation Head and Neck Clemons, Surgery Huan Sullivan 05/12/2021 Documentation Radiation Slava Canseco MD 05/12/2021 Multidisciplinary Visit Head and Neck Melita, OUMAR Avila 05/12/2021 Orders Only Head and Neck Yumi Desir 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) 05/11/2021 Consult Head and Neck Yumi Desir 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); Medical Oncology Tobacco use ; Multiple nodule s of lung 05/11/2021 Hospital Encounter Audiology Harleen, Slava Sensorine ural hearing loss, bilateral (Primary Dx); [...] Oncology MD Nick 05/11/2021 Orders Only Radiation Manblack, Jose Martin Oncology MD Diana PhD 05/11/2021 Travel 05/10/2021 Orders Only Proton Therapy Slava Canseco Primary squam ous cell MD Nick carcinoma of la rynx (Primary Dx) 05/06/2021 Hospital Encounter Dental Oncology Yobany oJvel ter for Elva, DDS observation for other [...] tisha Dx) 05/04/2021 Hospital Encounter Proton Therapy Harleen Slava Primary squamous cell MD Nick carcinoma of [...] Steve Munguia MD Xu, Ya, MD after 09/28/2020 Immunizations Name Administration Dates Next Due Moderna SARS-CoV-2 Booster Vaccination (50 mcg/0.25 04/16/20 21 mL) Moderna SARS-CoV-2 Vaccination 08/07/2020, 07/10/2020 Surgical History Surgery Date Site/Laterality Comments CHOLECYSTECTOMY FEMORAL ARTERY STENT Left Left leg MT ESOPHAGOGASTRODUODENOSCOPY 08/29/2021 Esophagus/N/A Pr ocedure: DIAGNOSTIC TRANSORAL DIAGNOSTIC UPPER GASTR OINTESTINAL ENDOSCOPY; Surg jay: Michael Lam MD; Location: MAIN ENDOSCOPY; Serv ice: GASTROENTEROLOGY MT COLONOSCOPY FLX DX W/COLLJ SPEC 08/29/2021 N/A [...] at Date Recorded 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 Obstetrics History Last Filed Vital Signs Vital Sign Reading Time Taken Comments Blood Pressure 122/59 09/23/2021 11:16 AM CDT Pulse 77 09/23/2021 11:16 AM CDT Temperature 36.6 C (97.9 F) 09/23/2021 11:16 AM CDT Respiratory Rate 16 09/23/2021 11:16 AM CDT Oxygen Saturation 97% 09/21/2021 1:38 PM CDT Inhaled Oxygen Concentration - - Weight 62.6 kg (138 lb 0.1 oz) 09/23/2021 11:06 AM CDT Height 163 cm (5' 4.17") 08/26/2021 9:25 PM CDT Body Mass Index 23.56 08/26/2021 9:25 PM CDT Plan of Treatment Date Type Specialty Care Team Description 10/11/2021 Appointment Speech Pathology Ene Polk MD [facility] [place] [address] Kita Campos, [facility]-FIELD ADMINISTRATIVE ASSISTANT [address] [place] [id number] 10/28/2021 Ancillary Procedure Radiology Oralia Duong, PA [facility] [place], [place] [address] (Wo rk) 10/28/2021 Appointment Head and Neck Surgery Cipriano Polk MD [facility] [place], [place] [address] (Rosario rk) 06/26/2022 Appointment Radiology Ene Polk MD [facility] [place], [place] [address] (Rosario valdes) Health Maintenance Due Date Last Done Comments COVID-19 Vaccination (3 - Moderna 05/14/2021 04/16/2021, , risk 4-dose series) 07/10/2020 Implants Implanted Type Area Petroleum Sampler Device Identifier Shelf Exp iration Model / Serial Date / Lot Stent Stent Description: Left upper leg Stent Stent Description: left side/aorta Procedures Procedure Name Priority Date/Time Associated Comments Diagnosis FL MODIFIED BARIUM Routine 09/23/2021 10:46 Dysphagia, Resul ts for SWALLOW W SPEECH AM CDT oropharyngeal phase this procedure are in the results section. CT CHEST W CONTRAST Routine 09/20/2021 4:26 Primary squamous Results for PM CDT cell carcinoma of this proce dure larynx are in the results section. CT SOFT TISSUE NECK W Routine 09/20/2021 4:26 Primary squamou s Results for CONTRAST PM CDT cell carcinoma of this proce dure larynx are in the results section. .GLOMERULAR FILTRATION Routine 09/20/2021 11:58 Primary squamo us Results for RATE AM CDT cell carcinoma of this proce dure larynx are in the results section. 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 POC GLUCOSE SCREEN Routine 08/31/2021 10:15 Resul ts for AM CDT this procedure are in the results section. MANUAL DIFFERENTIAL AM 08/31/2021 4:26 Resu lts for AM CDT this procedure are in the results section. Results CBC AM 08/31/2021 4:26 Results for AM CDT this procedure are in the results section. CALCIUM LEVEL TOTAL AM 08/31/2021 4:26 Resu lts for AM CDT this procedure are in the results section. .GLOMERULAR FILTRATION AM 08/31/2021 4:26 R esults for RATE AM CDT this procedure are in the results section. SERUM CREATININE AM 08/31/2021 4:26 Results for AM CDT this procedure are in the results section. ELECTROLYTE PANEL AM 08/31/2021 4:26 Result s for AM CDT this procedure are in the results section. BLOOD UREA NITROGEN AM 08/31/2021 4:26 Resu lts for AM CDT this procedure are in the results section. GLUCOSE LEVEL AM 08/31/2021 4:26 Results fo r AM CDT this procedure are in the results section. COMPLETE BLOOD COUNT W/ AM 08/31/2021 4:26 DIFFERENTIAL AM CDT PHOSPHORUS LEVEL AM 08/31/2021 4:26 Results for AM CDT this procedure are in the results section. MAGNESIUM LEVEL AM 08/31/2021 4:26 Results for AM CDT this procedure are in the results section. BASIC METABOLIC PANEL, AM 08/31/2021 4:26 CALCIUM TOTAL AM CDT POC GLUCOSE SCREEN Routine 08/30/2021 10:06 Resul ts for PM CDT this procedure are in the results section. POC GLUCOSE SCREEN Routine 08/30/2021 4:50 Resul ts for PM CDT this procedure are in the results section. FL MODIFIED BARIUM Routine 08/30/2021 3:15 Resul ts for SWALLOW W SPEECH PM CDT this proced ure are in the results section. POC GLUCOSE SCREEN Routine 08/30/2021 12:35 Resul ts for PM CDT this procedure are in the results section. POC GLUCOSE SCREEN Routine 08/30/2021 7:52 Resul ts for AM CDT this procedure are in the results section. MANUAL DIFFERENTIAL AM 08/30/2021 4:36 Resu lts for AM CDT this procedure are in the results section. Results CBC AM 08/30/2021 4:36 Results for AM CDT this procedure are in the results section. CALCIUM LEVEL TOTAL AM 08/30/2021 4:36 Resu lts for AM CDT this procedure are in the results section. .GLOMERULAR FILTRATION AM 08/30/2021 4:36 R esults for RATE AM CDT this procedure are in the results section. SERUM CREATININE AM 08/30/2021 4:36 Results for AM CDT this procedure are in the results section. ELECTROLYTE PANEL AM 08/30/2021 4:36 Result s for AM CDT this procedure are in the results section. BLOOD UREA NITROGEN AM 08/30/2021 4:36 Resu lts for AM CDT this procedure are in the results section. GLUCOSE LEVEL AM 08/30/2021 4:36 Results fo r AM CDT this procedure are in the results section. COMPLETE BLOOD COUNT W/ AM 08/30/2021 4:36 DIFFERENTIAL AM CDT PHOSPHORUS LEVEL AM 08/30/2021 4:36 Results for AM CDT this procedure are in the results section. MAGNESIUM LEVEL AM 08/30/2021 4:36 Results for AM CDT this procedure are in the results section. BASIC METABOLIC PANEL, AM 08/30/2021 4:36 CALCIUM TOTAL AM CDT POC GLUCOSE SCREEN Routine 08/29/2021 10:07 Resul ts for PM CDT this procedure are in the results section. XR ABDOMEN 1 VW STAT 08/29/2021 6:11 Results for PORTABLE PM CDT this procedure are in the results section. POC GLUCOSE SCREEN Routine 08/29/2021 5:46 Resul ts for PM CDT this procedure are in the results section. POC GLUCOSE SCREEN Routine 08/29/2021 4:32 Resul ts for PM CDT this procedure are in the results section. PATHOLOGY BIOPSY Routine 08/29/2021 2:14 Iron deficiency Resu lts for INTERPRETATION PM CDT anemia, not this procedur e otherwise specified are in t he results section. DIAGNOSTIC FLEXIBLE 08/29/2021 1:46 Iron deficiency COLONOSCOPY PROXIMAL TO PM CDT anemia, not SPLENIC FLEXURE otherwise specified DIAGNOSTIC UPPER 08/29/2021 1:46 Iron deficiency GASTROINTESTINAL PM CDT anemia, not ENDOSCOPY otherwise specified POC GLUCOSE SCREEN Routine 08/29/2021 1:22 Resul ts for PM CDT this procedure are in the results section. POC GLUCOSE SCREEN Routine 08/29/2021 10:21 Resul ts for AM CDT this procedure are in the results section. MANUAL DIFFERENTIAL AM 08/29/2021 5:31 Resu lts for AM CDT this procedure are in the results section. Results CBC AM 08/29/2021 5:31 Results for AM CDT this procedure are in the results section. CALCIUM LEVEL TOTAL AM 08/29/2021 5:31 Resu lts for AM CDT this procedure are in the results section. .GLOMERULAR FILTRATION AM 08/29/2021 5:31 R esults for RATE AM CDT this procedure are in the results section. SERUM CREATININE AM 08/29/2021 5:31 Results for AM CDT this procedure are in the results section. ELECTROLYTE PANEL AM 08/29/2021 5:31 Result s for AM CDT this procedure are in the results section. BLOOD UREA NITROGEN AM 08/29/2021 5:31 Resu lts for AM CDT this procedure are in the results section. GLUCOSE LEVEL AM 08/29/2021 5:31 Results fo r AM CDT this procedure are in the results section. PROTHROMBIN TIME AM 08/29/2021 5:31 Results for AM CDT this procedure are in the results section. COMPLETE BLOOD COUNT W/ AM 08/29/2021 5:31 DIFFERENTIAL AM CDT PHOSPHORUS LEVEL AM 08/29/2021 5:31 Results for AM CDT this procedure are in the results section. MAGNESIUM LEVEL AM 08/29/2021 5:31 Results for AM CDT this procedure are in the results section. BASIC METABOLIC PANEL, AM 08/29/2021 5:31 CALCIUM TOTAL AM CDT POC GLUCOSE SCREEN Routine 08/28/2021 9:15 Resul ts for PM CDT this procedure are in the results section. POC GLUCOSE SCREEN Routine 08/28/2021 4:24 Resul ts for PM CDT this procedure are in the results section. POC GLUCOSE SCREEN Routine 08/28/2021 8:49 Resul ts for AM CDT this procedure are in the results section. MANUAL DIFFERENTIAL AM 08/28/2021 3:13 Resu lts for AM CDT this procedure are in the results section. Results CBC AM 08/28/2021 3:13 Results for AM CDT this procedure are in the results section. CALCIUM LEVEL TOTAL AM 08/28/2021 3:13 Resu lts for AM CDT this procedure are in the results section. .GLOMERULAR FILTRATION AM 08/28/2021 3:13 R esults for RATE AM CDT this procedure are in the results section. SERUM CREATININE AM 08/28/2021 3:13 Results for AM CDT this procedure are in the results section. ELECTROLYTE PANEL AM 08/28/2021 3:13 Result s for AM CDT this procedure are in the results section. BLOOD UREA NITROGEN AM 08/28/2021 3:13 Resu lts for AM CDT this procedure are in the results section. GLUCOSE LEVEL AM 08/28/2021 3:13 Results fo r AM CDT this procedure are in the results section. COMPLETE BLOOD COUNT W/ AM 08/28/2021 3:13 DIFFERENTIAL AM CDT PHOSPHORUS LEVEL AM 08/28/2021 3:13 Results for AM CDT this procedure are in the results section. MAGNESIUM LEVEL AM 08/28/2021 3:13 Results for AM CDT this procedure are in the results section. BASIC METABOLIC PANEL, AM 08/28/2021 3:13 CALCIUM TOTAL AM CDT POC GLUCOSE SCREEN Routine 08/27/2021 10:20 Resul ts for PM CDT this procedure are in the results section. POC GLUCOSE SCREEN Routine 08/27/2021 1:30 Resul ts for PM CDT this procedure are in the results section. POC GLUCOSE SCREEN Routine 08/27/2021 8:47 Resul ts for AM CDT this procedure are in the results section. MANUAL DIFFERENTIAL AM 08/27/2021 4:47 Resu lts for AM CDT this procedure are in the results section. Results CBC AM 08/27/2021 4:47 Results for AM CDT this procedure are in the results section. CALCIUM LEVEL TOTAL AM 08/27/2021 4:47 Resu lts for AM CDT this procedure are in the results section. .GLOMERULAR FILTRATION AM 08/27/2021 4:47 R esults for RATE AM CDT this procedure are in the results section. SERUM CREATININE AM 08/27/2021 4:47 Results for AM CDT this procedure are in the results section. ELECTROLYTE PANEL AM 08/27/2021 4:47 Result s for AM CDT this procedure are in the results section. BLOOD UREA NITROGEN AM 08/27/2021 4:47 Resu lts for AM CDT this procedure are in the results section. GLUCOSE LEVEL AM 08/27/2021 4:47 Results fo r AM CDT this procedure are in the results section. COMPLETE BLOOD COUNT W/ AM 08/27/2021 4:47 DIFFERENTIAL AM CDT PHOSPHORUS LEVEL AM 08/27/2021 4:47 Results for AM CDT this procedure are in the results section. MAGNESIUM LEVEL AM 08/27/2021 4:47 Results for AM CDT this procedure are in the results section. BASIC METABOLIC PANEL, AM 08/27/2021 4:47 CALCIUM TOTAL AM CDT POC GLUCOSE SCREEN Routine 08/26/2021 8:25 Resul ts for PM CDT this procedure are in the results section. POC GLUCOSE SCREEN Routine 08/26/2021 4:49 Resul ts for PM CDT this procedure are in the results section. POC GLUCOSE SCREEN Routine 08/26/2021 12:17 Resul ts for PM CDT this procedure are in the results section. POC GLUCOSE SCREEN Routine 08/26/2021 8:44 Resul ts for AM CDT this procedure are in the results section. MANUAL DIFFERENTIAL AM 08/26/2021 8:10 Resu lts for AM CDT this procedure are in the results section. Results CBC AM 08/26/2021 8:10 Results for AM CDT this procedure are in the results section. CALCIUM LEVEL TOTAL AM 08/26/2021 8:10 Resu lts for AM CDT this procedure are in the results section. .GLOMERULAR FILTRATION AM 08/26/2021 8:10 R esults for RATE AM CDT this procedure are in the results section. SERUM CREATININE AM 08/26/2021 8:10 Results for AM CDT this procedure are in the results section. ELECTROLYTE PANEL AM 08/26/2021 8:10 Result s for AM CDT this procedure are in the results section. BLOOD UREA NITROGEN AM 08/26/2021 8:10 Resu lts for AM CDT this procedure are in the results section. GLUCOSE LEVEL AM 08/26/2021 8:10 Results fo r AM CDT this procedure are in the results section. COMPLETE BLOOD COUNT W/ AM 08/26/2021 8:10 DIFFERENTIAL AM CDT PHOSPHORUS LEVEL AM 08/26/2021 8:10 Results for AM CDT this procedure are in the results section. MAGNESIUM LEVEL AM 08/26/2021 8:10 Results for AM CDT this procedure are in the results section. BASIC METABOLIC PANEL, AM 08/26/2021 8:10 CALCIUM TOTAL AM CDT TRANSFUSE RED BLOOD Routine 08/26/2021 4:17 CELLS AM CDT TRANSFUSE RED BLOOD Routine 08/26/2021 12:58 CELLS AM CDT POC GLUCOSE SCREEN Routine 08/25/2021 11:03 Resul ts for PM CDT this procedure are in the results section. CONFIRM ABORH TYPE Now 08/25/2021 6:19 Resul ts for PM CDT this procedure are in the results section. TMP CROSSMATCH Now 08/25/2021 6:15 Results f or INTERPRETATION PM CDT this procedur e are in the results section. TMP INTERPRETATION Routine 08/25/2021 6:15 Resul ts for ANTIBODY SCREEN PM CDT this procedu re NEGATIVE are in the results section. CLOT EXPIRATION DATE Routine 08/25/2021 6:15 Res ults for PM CDT this procedure are in the results section. FRACTIONATED BILIRUBIN Now 08/25/2021 6:15 R esults for PM CDT this procedure are in the results section. TOTAL PROTEIN Now 08/25/2021 6:15 Results fo r PM CDT this procedure are in the results section. ASPARTATE Now 08/25/2021 6:15 Results for AMINOTRANSFERASE PM CDT this proced ure are in the results section. ALANINE Now 08/25/2021 6:15 Results for AMINOTRANSFERASE PM CDT this proced ure are in the results section. ALKALINE PHOSPHATASE Now 08/25/2021 6:15 Res ults for PM CDT this procedure are in the results section. ALBUMIN LEVEL Now 08/25/2021 6:15 Results fo r PM CDT this procedure are in the results section. CALCIUM LEVEL TOTAL Now 08/25/2021 6:15 Resu lts for PM CDT this procedure are in the results section. .GLOMERULAR FILTRATION Now 08/25/2021 6:15 R esults for RATE PM CDT this procedure are in the results section. SERUM CREATININE Now 08/25/2021 6:15 Results for PM CDT this procedure are in the results section. ELECTROLYTE PANEL Now 08/25/2021 6:15 Result s for PM CDT this procedure are in the results section. ANTIBODY SCREEN Now 08/25/2021 6:15 Results for PM CDT this procedure are in the results section. BLOOD UREA NITROGEN Now 08/25/2021 6:15 Resu lts for PM CDT this procedure are in the results section. GLUCOSE LEVEL Now 08/25/2021 6:15 Results fo r PM CDT this procedure are in the results section. ABORH Now 08/25/2021 6:15 Results for PM CDT this procedure are in the results section. APTT Now 08/25/2021 6:15 Results for PM CDT this procedure are in the results section. PROTHROMBIN TIME Now 08/25/2021 6:15 Results for PM CDT this procedure are in the results section. PHOSPHORUS LEVEL Now 08/25/2021 6:15 Results for PM CDT this procedure are in the results section. MAGNESIUM LEVEL Now 08/25/2021 6:15 Results for PM CDT this procedure are in the results section. COMPREHENSIVE METABOLIC Now 08/25/2021 6:15 PANEL PM CDT TYPE AND SCREEN Now 08/25/2021 6:15 PM CDT COVID-19 (SARS-COV-2) Now 08/25/2021 6:15 Re sults for ASYMPTOMATIC-LT PM CDT this procedu re are in the results section. PRBC PRODUCT READY FOR Routine 08/25/2021 4:47 R esults for SUGAR CANE GROWER PM CDT this procedure are in the results section. PREPARE RBC Routine 08/25/2021 4:47 Results for PM CDT this procedure are in the results section. 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 COMPLETE BLOOD COUNT W/ Routine 08/25/2021 12:41 Primary squam ous DIFFERENTIAL PM CDT cell carcinoma of larynx XR CHEST 2 VW Routine 08/25/2021 11:17 Aspiration Results fo r AM CDT pneumonia this procedure Primary squamous are in the cell carcinoma of results larynx section. FLEXIBLE NASOPHARYNGEAL Routine 08/22/2021 10:38 Results for LARYNGOSCOPY AM CDT this procedure are in the results section. COVID-19 (SARS-COV-2) Routine 08/20/2021 2:44 Suspected COVID -19 Results for PCR-ASYMPTOMATIC MC PM CDT this pro cedure are in the results section. POC GLUCOSE SCREEN Routine 07/12/2021 5:42 Resul ts for PM ELECTRIC WELDER HELPER this procedure are in the results section. CALCIUM LEVEL TOTAL Routine 07/12/2021 3:09 Resu lts for PM ELECTRIC WELDER HELPER this procedure are in the results section. .GLOMERULAR FILTRATION Routine 07/12/2021 3:09 R esults for RATE PM ELECTRIC WELDER HELPER this procedure are in the results section. SERUM CREATININE Routine 07/12/2021 3:09 Results for PM ELECTRIC WELDER HELPER this procedure are in the results section. ELECTROLYTE PANEL Routine 07/12/2021 3:09 Result s for PM ELECTRIC WELDER HELPER this procedure are in the results section. BLOOD UREA NITROGEN Routine 07/12/2021 3:09 Resu lts for PM ELECTRIC WELDER HELPER this procedure are in the results section. GLUCOSE LEVEL Routine 07/12/2021 3:09 Results fo r PM ELECTRIC WELDER HELPER this procedure are in the results section. PHOSPHORUS LEVEL Routine 07/12/2021 3:09 Results for PM ELECTRIC WELDER HELPER this procedure are in the results section. MAGNESIUM LEVEL Routine 07/12/2021 3:09 Results for PM ELECTRIC WELDER HELPER this procedure are in the results section. BASIC METABOLIC PANEL, Routine 07/12/2021 3:09 CALCIUM TOTAL PM [employer]RIC [employer]ELDER HELPER POC GLUCOSE SCREEN Routine 07/12/2021 1:45 Resul ts for PM ELECTRIC WELDER HELPER this procedure are in the results section. POC GLUCOSE SCREEN Routine 07/12/2021 9:40 Resul ts for AM ELECTRIC WELDER HELPER this procedure are in the results section. MANUAL DIFFERENTIAL AM 07/12/2021 1:56 Resu lts for AM ELECTRIC WELDER HELPER this procedure are in the results section. Results CBC AM 07/12/2021 1:56 Results for AM ELECTRIC WELDER HELPER this procedure are in the results section. CALCIUM LEVEL TOTAL Routine 07/12/2021 1:56 Resu lts for AM ELECTRIC WELDER HELPER this procedure are in the results section. .GLOMERULAR FILTRATION Routine 07/12/2021 1:56 R esults for RATE AM ELECTRIC WELDER HELPER this procedure are in the results section. SERUM CREATININE Routine 07/12/2021 1:56 Results for AM ELECTRIC WELDER HELPER this procedure are in the results section. ELECTROLYTE PANEL Routine 07/12/2021 1:56 Result s for AM ELECTRIC WELDER HELPER this procedure are in the results section. BLOOD UREA NITROGEN Routine 07/12/2021 1:56 Resu lts for AM ELECTRIC WELDER HELPER this procedure are in the results section. GLUCOSE LEVEL Routine 07/12/2021 1:56 Results fo r AM ELECTRIC WELDER HELPER this procedure are in the results section. PHOSPHORUS LEVEL Routine 07/12/2021 1:56 Results for AM ELECTRIC WELDER HELPER this procedure are in the results section. MAGNESIUM LEVEL Routine 07/12/2021 1:56 Results for AM ELECTRIC WELDER HELPER this procedure are in the results section. BASIC METABOLIC PANEL, Routine 07/12/2021 1:56 CALCIUM TOTAL AM ELECTRIC WELDER HELPER COMPLETE BLOOD COUNT W/ AM 07/12/2021 1:56 DIFFERENTIAL AM E[employer]RIC WELDER HELPER POC GLUCOSE SCREEN Routine 07/11/2021 10:09 Resul ts for PM ELECTRIC WELDER HELPER this procedure are in the results section. POC GLUCOSE SCREEN Routine 07/11/2021 8:52 Resul ts for PM ELECTRIC WELDER HELPER this procedure are in the results section. POC GLUCOSE SCREEN Routine 07/11/2021 4:27 Resul ts for PM ELECTRIC WELDER HELPER this procedure are in the results section. ECHOCARDIOGRAM 2D Routine 07/11/2021 4:16 Result s for COMPLETE PM [employer]ELDER HELPER this procedure are in the results section. CALCIUM LEVEL TOTAL Routine 07/11/2021 2:33 Resu lts for PM ELECTRIC WELDER HELPER this procedure are in the results section. .GLOMERULAR FILTRATION Routine 07/11/2021 2:33 R esults for RATE PM ELECTRIC WELDER HELPER this procedure are in the results section. SERUM CREATININE Routine 07/11/2021 2:33 Results for PM ELECTRIC WELDER HELPER this procedure are in the results section. ELECTROLYTE PANEL Routine 07/11/2021 2:33 Result s for PM ELECTRIC WELDER HELPER this procedure are in the results section. BLOOD UREA NITROGEN Routine 07/11/2021 2:33 Resu lts for PM ELECTRIC WELDER HELPER this procedure are in the results section. GLUCOSE LEVEL Routine 07/11/2021 2:33 Results fo r PM ELECTRIC [employer]ELDER HELPER this procedure are in the results section. PHOSPHORUS LEVEL Routine 07/11/2021 2:33 Results for PM ELECTRIC WELDER HELPER this procedure are in the results section. MAGNESIUM LEVEL Routine 07/11/2021 2:33 Results for PM ELECTRIC WELDER HELPER this procedure are in the results section. BASIC METABOLIC PANEL, Routine 07/11/2021 2:33 CALCIUM TOTAL PM [employer]RIC [employer]ELDER HELPER POC GLUCOSE SCREEN Routine 07/11/2021 12:33 Resul ts for PM ELECTRIC WELDER HELPER this procedure are in the results section. POC GLUCOSE SCREEN Routine 07/11/2021 8:52 Resul ts for AM ELECTRIC WELDER HELPER this procedure are in the results section. CALCIUM LEVEL TOTAL Routine 07/11/2021 2:00 Resu lts for AM ELECTRIC WELDER HELPER this procedure are in the results section. .GLOMERULAR FILTRATION Routine 07/11/2021 2:00 R esults for RATE AM ELECTRIC WELDER HELPER this procedure are in the results section. SERUM CREATININE Routine 07/11/2021 2:00 Results for AM ELECTRIC WELDER HELPER this procedure are in the results section. ELECTROLYTE PANEL Routine 07/11/2021 2:00 Result s for AM ELECTRIC WELDER HELPER this procedure are in the results section. BLOOD UREA NITROGEN Routine 07/11/2021 2:00 Resu lts for AM ELECTRIC WELDER HELPER this procedure are in the results section. GLUCOSE LEVEL Routine 07/11/2021 2:00 Results fo r AM ELECTRIC WELDER HELPER this procedure are in the results section. PHOSPHORUS LEVEL Routine 07/11/2021 2:00 Results for AM ELECTRIC WELDER HELPER this procedure are in the results section. MAGNESIUM LEVEL Routine 07/11/2021 2:00 Results for AM ELECTRIC WELDER HELPER this procedure are in the results section. BASIC METABOLIC PANEL, Routine 07/11/2021 2:00 CALCIUM TOTAL AM [employer]LECTRIC WELDER HELPER MANUAL DIFFERENTIAL AM 07/11/2021 1:46 Resu lts for AM ELECTRIC WELDER HELPER this procedure are in the results section. Results CBC AM 07/11/2021 1:46 Results for AM ELECTRIC WELDER HELPER this procedure are in the results section. COMPLETE BLOOD COUNT W/ AM 07/11/2021 1:46 DIFFERENTIAL AM E[employer]RIC WELDER HELPER EKG, 12-LEAD (PORTABLE) Routine 07/11/2021 EKG, 12-LEAD (PORTABLE) STAT 07/11/2021 POC GLUCOSE SCREEN Routine 07/10/2021 9:45 Resul ts for PM ELECTRIC WELDER HELPER this procedure are in the results section. POC GLUCOSE SCREEN Routine 07/10/2021 7:36 Resul ts for PM ELECTRIC WELDER HELPER this procedure are in the results section. POC GLUCOSE SCREEN Routine 07/10/2021 4:26 Resul ts for PM ELECTRIC WELDER HELPER this procedure are in the results section. CALCIUM LEVEL TOTAL Routine 07/10/2021 3:02 Resu lts for PM ELECTRIC WELDER HELPER this procedure are in the results section. .GLOMERULAR FILTRATION Routine 07/10/2021 3:02 R esults for RATE PM ELECTRIC WELDER HELPER this procedure are in the results section. SERUM CREATININE Routine 07/10/2021 3:02 Results for PM ELECTRIC WELDER HELPER this procedure are in the results section. ELECTROLYTE PANEL Routine 07/10/2021 3:02 Result s for PM ELECTRIC WELDER HELPER this procedure are in the results section. BLOOD UREA NITROGEN Routine 07/10/2021 3:02 Resu lts for PM ELECTRIC WELDER HELPER this procedure are in the results section. GLUCOSE LEVEL Routine 07/10/2021 3:02 Results fo r PM ELECTRIC WELDER HELPER this procedure are in the results section. PHOSPHORUS LEVEL Routine 07/10/2021 3:02 Results for PM ELECTRIC WELDER HELPER this procedure are in the results section. MAGNESIUM LEVEL Routine 07/10/2021 3:02 Results for PM ELECTRIC WELDER HELPER this procedure are in the results section. BASIC METABOLIC PANEL, Routine 07/10/2021 3:02 CALCIUM TOTAL PM ELECTRIC WELDER HELPER POC GLUCOSE SCREEN Routine 07/10/2021 11:40 Resul ts for AM ELECTRIC WELDER HELPER this procedure are in the results section. MANUAL DIFFERENTIAL AM 07/10/2021 6:09 Resu lts for AM ELECTRIC WELDER HELPER this procedure are in the results section. Results CBC AM 07/10/2021 6:09 Results for AM ELECTRIC WELDER HELPER this procedure are in the results section. CALCIUM LEVEL TOTAL Routine 07/10/2021 6:09 Resu lts for AM ELECTRIC WELDER HELPER this procedure are in the results section. .GLOMERULAR FILTRATION Routine 07/10/2021 6:09 R esults for RATE AM ELECTRIC WELDER HELPER this procedure are in the results section. SERUM CREATININE Routine 07/10/2021 6:09 Results for AM ELECTRIC WELDER HELPER this procedure are in the results section. ELECTROLYTE PANEL Routine 07/10/2021 6:09 Result s for AM ELECTRIC WELDER HELPER this procedure are in the results section. BLOOD UREA NITROGEN Routine 07/10/2021 6:09 Resu lts for AM ELECTRIC WELDER HELPER this procedure are in the results section. GLUCOSE LEVEL Routine 07/10/2021 6:09 Results fo r AM ELECTRIC WELDER HELPER this procedure are in the results section. TROPONIN T AM 07/10/2021 6:09 Results for AM ELECTRIC WELDER HELPER this procedure are in the results section. PHOSPHORUS LEVEL Routine 07/10/2021 6:09 Results for AM ELECTRIC WELDER HELPER this procedure are in the results section. MAGNESIUM LEVEL Routine 07/10/2021 6:09 Results for AM ELECTRIC WELDER HELPER this procedure are in the results section. BASIC METABOLIC PANEL, Routine 07/10/2021 6:09 CALCIUM TOTAL AM ELECTRIC WELDER HELPER COMPLETE BLOOD COUNT W/ AM 07/10/2021 6:09 DIFFERENTIAL AM ELECTRIC WELDER HELPER POC GLUCOSE SCREEN Routine 07/09/2021 11:11 Resul ts for PM ELECTRIC WELDER HELPER this procedure are in the results section. BLOOD UREA NITROGEN STAT 07/09/2021 10:35 Resu lts for PM ELECTRIC WELDER HELPER this procedure are in the results section. CALCIUM IONIZED, VENOUS STAT 07/09/2021 10:35 Results for PM ELECTRIC WELDER HELPER this procedure are in the results section. .GLOMERULAR FILTRATION STAT 07/09/2021 10:35 R esults for RATE PM ELECTRIC WELDER HELPER this procedure are in the results section. SERUM CREATININE STAT 07/09/2021 10:35 Results for PM ELECTRIC WELDER HELPER this procedure are in the results section. ELECTROLYTE PANEL STAT 07/09/2021 10:35 Result s for PM ELECTRIC WELDER HELPER this procedure are in the results section. GLUCOSE LEVEL STAT 07/09/2021 10:35 Results fo r PM ELECTRIC WELDER HELPER this procedure are in the results section. TROPONIN T STAT 07/09/2021 10:35 Results for PM ELECTRIC WELDER HELPER this procedure are in the results section. PHOSPHORUS LEVEL STAT 07/09/2021 10:35 Results for PM ELECTRIC WELDER HELPER this procedure are in the results section. MAGNESIUM LEVEL STAT 07/09/2021 10:35 Results for PM ELECTRIC WELDER HELPER this procedure are in the results section. BASIC METABOLIC PANEL, STAT 07/09/2021 10:35 CALCIUM IONIZED PM ELECTRIC WELDER HELPER LOWER RESPIRATORY Now 07/09/2021 5:33 Result s for CULTURE W/ GRAM STAIN PM ELECTRIC WELDER HELPER this p rocedure are in the results section. POC GLUCOSE SCREEN Routine 07/09/2021 4:30 Resul ts for PM ELECTRIC WELDER HELPER this procedure are in the results section. VASCULAR ACCESS Routine 07/09/2021 3:00 Results for ULTRASOUND PM ELECTRIC WELDER HELPER this procedure are in the results section. CALCIUM LEVEL TOTAL Routine 07/09/2021 1:45 Resu lts for PM ELECTRIC WELDER HELPER this procedure are in the results section. .GLOMERULAR FILTRATION Routine 07/09/2021 1:45 R esults for RATE PM ELECTRIC WELDER HELPER this procedure are in the results section. SERUM CREATININE Routine 07/09/2021 1:45 Results for PM ELECTRIC WELDER HELPER this procedure are in the results section. ELECTROLYTE PANEL Routine 07/09/2021 1:45 Result s for PM ELECTRIC WELDER HELPER this procedure are in the results section. BLOOD UREA NITROGEN Routine 07/09/2021 1:45 Resu lts for PM ELECTRIC WELDER HELPER this procedure are in the results section. GLUCOSE LEVEL Routine 07/09/2021 1:45 Results fo r PM ELECTRIC WELDER HELPER this procedure are in the results section. PHOSPHORUS LEVEL Routine 07/09/2021 1:45 Results for PM ELECTRIC WELDER HELPER this procedure are in the results section. MAGNESIUM LEVEL Routine 07/09/2021 1:45 Results for PM ELECTRIC WELDER HELPER this procedure are in the results section. BASIC METABOLIC PANEL, Routine 07/09/2021 1:45 CALCIUM TOTAL PM ELECTRIC WELDER HELPER OSCILLATORY PEP Routine 07/09/2021 1:21 PM ELECTRIC WELDER HELPER OSCILLATORY PEP Routine 07/09/2021 1:21 PM ELECTRIC WELDER HELPER OSCILLATORY PEP Routine 07/09/2021 1:21 PM ELECTRIC WELDER HELPER POC GLUCOSE SCREEN Routine 07/09/2021 12:42 Resul ts for PM ELECTRIC WELDER HELPER this procedure are in the results section. POC GLUCOSE SCREEN Routine 07/09/2021 8:56 Resul ts for AM ELECTRIC WELDER HELPER this procedure are in the results section. MANUAL DIFFERENTIAL AM 07/09/2021 6:28 Resu lts for AM ELECTRIC WELDER HELPER this procedure are in the results section. Results CBC AM 07/09/2021 6:28 Results for AM ELECTRIC WELDER HELPER this procedure are in the results section. CALCIUM LEVEL TOTAL AM 07/09/2021 6:28 Resu lts for AM ELECTRIC WELDER HELPER this procedure are in the results section. .GLOMERULAR FILTRATION AM 07/09/2021 6:28 R esults for RATE AM ELECTRIC WELDER HELPER this procedure are in the results section. SERUM CREATININE AM 07/09/2021 6:28 Results for AM ELECTRIC WELDER HELPER this procedure are in the results section. ELECTROLYTE PANEL AM 07/09/2021 6:28 Result s for AM ELECTRIC WELDER HELPER this procedure are in the results section. BLOOD UREA NITROGEN AM 07/09/2021 6:28 Resu lts for AM ELECTRIC WELDER HELPER this procedure are in the results section. GLUCOSE LEVEL AM 07/09/2021 6:28 Results fo r AM ELECTRIC WELDER HELPER this procedure are in the results section. PHOSPHORUS LEVEL AM 07/09/2021 6:28 Results for AM ELECTRIC WELDER HELPER this procedure are in the results section. MAGNESIUM LEVEL AM 07/09/2021 6:28 Results for AM ELECTRIC WELDER HELPER this procedure are in the results section. COMPLETE BLOOD COUNT W/ AM 07/09/2021 6:28 DIFFERENTIAL AM ELECTRIC WELDER HELPER BASIC METABOLIC PANEL, AM 07/09/2021 6:28 CALCIUM TOTAL AM ELECTRIC WELDER HELPER TROPONIN T Routine 07/09/2021 6:28 Results for AM ELECTRIC WELDER HELPER this procedure are in the results section. POC GLUCOSE SCREEN Routine 07/08/2021 10:08 Resul ts for PM ELECTRIC WELDER HELPER this procedure are in the results section. POC GLUCOSE SCREEN Routine 07/08/2021 5:49 Resul ts for PM ELECTRIC WELDER HELPER this procedure are in the results section. STREPTOCOCCAL URINE Routine 07/08/2021 5:17 Resu lts for ANTIGEN PATH REVIEW PM ELECTRIC WELDER HELPER this pro cedure are in the results section. LEGIONELLA URINE Routine 07/08/2021 5:17 Results for ANTIGEN PATH REVIEW PM ELECTRIC WELDER HELPER this pro cedure are in the results section. LEGIONELLA URINE Now 07/08/2021 5:17 Results for ANTIGEN PM ELECTRIC WELDER HELPER this procedure are in the results section. STREPTOCOCCUS Now 07/08/2021 5:17 Results fo r PNEUMONIAE URINE PM ELECTRIC WELDER HELPER this proced ure ANTIGEN are in the results section. GENERAL LABORATORY ADD Now 07/08/2021 3:35 R esults for ON TEST PM ELECTRIC WELDER HELPER this procedure are in the results section. MRSA SCREENING CULTURE Now 07/08/2021 3:23 R esults for PM ELECTRIC WELDER HELPER this procedure are in the results section. CT CHEST PULMONARY Routine 07/08/2021 1:38 Resul ts for EMBOLISM W CONTRAST PM ELECTRIC WELDER HELPER this pro cedure are in the results section. XR ABDOMEN AP Routine 07/08/2021 1:31 Results fo r PM ELECTRIC WELDER HELPER this procedure are in the results section. POC CRITICAL Routine 07/08/2021 12:14 Results for PM ELECTRIC WELDER HELPER this procedure are in the results section. POC CHEM 8 Routine 07/08/2021 12:14 Results for PM ELECTRIC WELDER HELPER this procedure are in the results section. PROCALCITONIN Now 07/08/2021 12:13 Results fo r PM ELECTRIC WELDER HELPER this procedure are in the results section. FRACTIONATED BILIRUBIN Now 07/08/2021 12:13 R esults for PM ELECTRIC WELDER HELPER this procedure are in the results section. TOTAL PROTEIN Now 07/08/2021 12:13 Results fo r PM ELECTRIC WELDER HELPER this procedure are in the results section. ASPARTATE Now 07/08/2021 12:13 Results for AMINOTRANSFERASE PM ELECTRIC WELDER HELPER this proced ure are in the results section. ALANINE Now 07/08/2021 12:13 Results for AMINOTRANSFERASE PM ELECTRIC WELDER HELPER this proced ure are in the results section. ALKALINE PHOSPHATASE Now 07/08/2021 12:13 Res ults for PM ELECTRIC WELDER HELPER this procedure are in the results section. ALBUMIN LEVEL Now 07/08/2021 12:13 Results fo r PM ELECTRIC WELDER HELPER this procedure are in the results section. CALCIUM LEVEL TOTAL Now 07/08/2021 12:13 Resu lts for PM ELECTRIC WELDER HELPER this procedure are in the results section. .GLOMERULAR FILTRATION Now 07/08/2021 12:13 R esults for RATE PM ELECTRIC WELDER HELPER this procedure are in the results section. SERUM CREATININE Now 07/08/2021 12:13 Results for PM ELECTRIC WELDER HELPER this procedure are in the results section. ELECTROLYTE PANEL Now 07/08/2021 12:13 Result s for PM ELECTRIC WELDER HELPER this procedure are in the results section. BLOOD UREA NITROGEN Now 07/08/2021 12:13 Resu lts for PM ELECTRIC WELDER HELPER this procedure are in the results section. GLUCOSE LEVEL Now 07/08/2021 12:13 Results fo r PM ELECTRIC WELDER HELPER this procedure are in the results section. MANUAL DIFFERENTIAL STAT 07/08/2021 12:13 Resu lts for PM ELECTRIC WELDER HELPER this procedure are in the results section. Results CBC STAT 07/08/2021 12:13 Results for PM ELECTRIC WELDER HELPER this procedure are in the results section. CARDIAC PANEL Timed Study 07/08/2021 12:13 Results fo r PM ELECTRIC WELDER HELPER this procedure are in the results section. D DIMER Now 07/08/2021 12:13 Results for PM ELECTRIC WELDER HELPER this procedure are in the results section. APTT Now 07/08/2021 12:13 Results for PM ELECTRIC WELDER HELPER this procedure are in the results section. PROTHROMBIN TIME Now 07/08/2021 12:13 Results for PM ELECTRIC WELDER HELPER this procedure are in the results section. PHOSPHORUS LEVEL Now 07/08/2021 12:13 Results for PM ELECTRIC WELDER HELPER this procedure are in the results section. MAGNESIUM LEVEL Now 07/08/2021 12:13 Results for PM ELECTRIC WELDER HELPER this procedure are in the results section. COMPREHENSIVE METABOLIC Now 07/08/2021 12:13 PANEL PM ELECTRIC WELDER HELPER COMPLETE BLOOD COUNT W/ Now 07/08/2021 12:13 DIFFERENTIAL PM ELECTRIC WELDER HELPER XR CHEST 1 VW Routine 07/08/2021 11:38 Results fo r AM ELECTRIC WELDER HELPER this procedure are in the results section. COVID-19 (SARS-COV-2) Now 07/08/2021 11:23 Re sults for ASYMPTOMATIC-LT AM ELECTRIC WELDER HELPER this procedu re are in the results section. CT HEAD WO CONTRAST Routine 07/08/2021 11:05 Resu lts for AM ELECTRIC WELDER HELPER this procedure are in the results section. POC GLUCOSE SCREEN Routine 07/08/2021 10:47 Resul ts for AM ELECTRIC WELDER HELPER this procedure are in the results section. EKG, 12-LEAD (PORTABLE) STAT 07/08/2021 MANUAL DIFFERENTIAL Routine 07/04/2021 11:10 Primary squamous Results for AM ELECTRIC WELDER HELPER cell carcinoma of this proce dure larynx are in the results section. Results CBC Routine 07/04/2021 11:10 Primary squamous Results for AM ELECTRIC WELDER HELPER cell carcinoma of this proce dure larynx are in the results section. FRACTIONATED BILIRUBIN Routine 07/04/2021 11:10 Primary squamo us Results for AM ELECTRIC WELDER HELPER cell carcinoma of this proce dure larynx are in the results section. TOTAL PROTEIN Routine 07/04/2021 11:10 Primary squamous Result s for AM ELECTRIC WELDER HELPER cell carcinoma of this proce dure larynx are in the results section. ASPARTATE Routine 07/04/2021 11:10 Primary squamous Results for AMINOTRANSFERASE AM ELECTRIC WELDER HELPER cell carcinoma of this p rocedure larynx are in the results section. ALANINE Routine 07/04/2021 11:10 Primary squamous Results for AMINOTRANSFERASE AM ELECTRIC WELDER HELPER cell carcinoma of this p rocedure larynx are in the results section. ALKALINE PHOSPHATASE Routine 07/04/2021 11:10 Primary squamous Results for AM ELECTRIC WELDER HELPER cell carcinoma of this proce dure larynx are in the results section. ALBUMIN LEVEL Routine 07/04/2021 11:10 Primary squamous Result s for AM ELECTRIC WELDER HELPER cell carcinoma of this proce dure larynx are in the results section. CALCIUM LEVEL TOTAL Routine 07/04/2021 11:10 Primary squamous Results for AM ELECTRIC WELDER HELPER cell carcinoma of this proce dure larynx are in the results section. .GLOMERULAR FILTRATION Routine 07/04/2021 11:10 Primary squamo us Results for RATE AM ELECTRIC WELDER HELPER cell carcinoma of this proce dure larynx are in the results section. SERUM CREATININE Routine 07/04/2021 11:10 Primary squamous Res ults for AM ELECTRIC WELDER HELPER cell carcinoma of this proce dure larynx are in the results section. ELECTROLYTE PANEL Routine 07/04/2021 11:10 Primary squamous Re sults for AM ELECTRIC WELDER HELPER cell carcinoma of this proce dure larynx are in the results section. BLOOD UREA NITROGEN Routine 07/04/2021 11:10 Primary squamous Results for AM ELECTRIC WELDER HELPER cell carcinoma of this proce dure larynx are in the results section. GLUCOSE LEVEL Routine 07/04/2021 11:10 Primary squamous Result s for AM ELECTRIC WELDER HELPER cell carcinoma of this proce dure larynx are in the results section. PHOSPHORUS LEVEL Routine 07/04/2021 11:10 Primary squamous Res ults for AM ELECTRIC WELDER HELPER cell carcinoma of this proce dure larynx are in the results section. MAGNESIUM LEVEL Routine 07/04/2021 11:10 Primary squamous Resu lts for AM ELECTRIC WELDER HELPER cell carcinoma of this proce dure larynx are in the results section. COMPLETE BLOOD COUNT W/ Routine 07/04/2021 11:10 Primary squam ous DIFFERENTIAL AM ELECTRIC WELDER HELPER cell carcinoma of larynx COMPREHENSIVE METABOLIC Routine 07/04/2021 11:10 Primary squam ous PANEL AM ELECTRIC WELDER HELPER cell carcinoma of larynx MANUAL DIFFERENTIAL Routine 06/27/2021 8:00 Primary squamous Results for AM ELECTRIC WELDER HELPER cell carcinoma of this proce dure larynx are in the results section. Results CBC Routine 06/27/2021 8:00 Primary squamous Results for AM ELECTRIC WELDER HELPER cell carcinoma of this proce dure larynx are in the results section. FRACTIONATED BILIRUBIN Routine 06/27/2021 8:00 Primary squamo us Results for AM ELECTRIC WELDER HELPER cell carcinoma of this proce dure larynx are in the results section. TOTAL PROTEIN Routine 06/27/2021 8:00 Primary squamous Result s for AM ELECTRIC WELDER HELPER cell carcinoma of this proce dure larynx are in the results section. ASPARTATE Routine 06/27/2021 8:00 Primary squamous Results for AMINOTRANSFERASE AM ELECTRIC WELDER HELPER cell carcinoma of this p rocedure larynx are in the results section. ALANINE Routine 06/27/2021 8:00 Primary squamous Results for AMINOTRANSFERASE AM ELECTRIC WELDER HELPER cell carcinoma of this p rocedure larynx are in the results section. ALKALINE PHOSPHATASE Routine 06/27/2021 8:00 Primary squamous Results for AM ELECTRIC WELDER HELPER cell carcinoma of this proce dure larynx are in the results section. ALBUMIN LEVEL Routine 06/27/2021 8:00 Primary squamous Result s for AM ELECTRIC WELDER HELPER cell carcinoma of this proce dure larynx are in the results section. CALCIUM LEVEL TOTAL Routine 06/27/2021 8:00 Primary squamous Results for AM ELECTRIC WELDER HELPER cell carcinoma of this proce dure larynx are in the results section. .GLOMERULAR FILTRATION Routine 06/27/2021 8:00 Primary squamo us Results for RATE AM ELECTRIC WELDER HELPER cell carcinoma of this proce dure larynx are in the results section. SERUM CREATININE Routine 06/27/2021 8:00 Primary squamous Res ults for AM ELECTRIC WELDER HELPER cell carcinoma of this proce dure larynx are in the results section. ELECTROLYTE PANEL Routine 06/27/2021 8:00 Primary squamous Re sults for AM ELECTRIC WELDER HELPER cell carcinoma of this proce dure larynx are in the results section. BLOOD UREA NITROGEN Routine 06/27/2021 8:00 Primary squamous Results for AM ELECTRIC WELDER HELPER cell carcinoma of this proce dure larynx are in the results section. GLUCOSE LEVEL Routine 06/27/2021 8:00 Primary squamous Result s for AM ELECTRIC WELDER HELPER cell carcinoma of this proce dure larynx are in the results section. PHOSPHORUS LEVEL Routine 06/27/2021 8:00 Primary squamous Res ults for AM ELECTRIC WELDER HELPER cell carcinoma of this proce dure larynx are in the results section. MAGNESIUM LEVEL Routine 06/27/2021 8:00 Primary squamous Resu lts for AM ELECTRIC WELDER HELPER cell carcinoma of this proce dure larynx are in the results section. COMPLETE BLOOD COUNT W/ Routine 06/27/2021 8:00 Primary squam ous DIFFERENTIAL AM ELECTRIC WELDER HELPER cell carcinoma of larynx COMPREHENSIVE METABOLIC Routine 06/27/2021 8:00 Primary squam ous PANEL AM ELECTRIC WELDER HELPER cell carcinoma of larynx TROPONIN T STAT 06/22/2021 3:45 Results for PM ELECTRIC WELDER HELPER this procedure are in the results section. FRACTIONATED BILIRUBIN Now 06/22/2021 11:54 R esults for AM ELECTRIC WELDER HELPER this procedure are in the results section. TOTAL PROTEIN Now 06/22/2021 11:54 Results fo r AM ELECTRIC WELDER HELPER this procedure are in the results section. ASPARTATE Now 06/22/2021 11:54 Results for AMINOTRANSFERASE AM ELECTRIC WELDER HELPER this proced ure are in the results section. ALANINE Now 06/22/2021 11:54 Results for AMINOTRANSFERASE AM ELECTRIC WELDER HELPER this proced ure are in the results section. ALKALINE PHOSPHATASE Now 06/22/2021 11:54 Res ults for AM ELECTRIC WELDER HELPER this procedure are in the results section. ALBUMIN LEVEL Now 06/22/2021 11:54 Results fo r AM ELECTRIC WELDER HELPER this procedure are in the results section. CALCIUM LEVEL TOTAL Now 06/22/2021 11:54 Resu lts for AM ELECTRIC WELDER HELPER this procedure are in the results section. .GLOMERULAR FILTRATION Now 06/22/2021 11:54 R esults for RATE AM ELECTRIC WELDER HELPER this procedure are in the results section. SERUM CREATININE Now 06/22/2021 11:54 Results for AM ELECTRIC WELDER HELPER this procedure are in the results section. ELECTROLYTE PANEL Now 06/22/2021 11:54 Result s for AM ELECTRIC WELDER HELPER this procedure are in the results section. BLOOD UREA NITROGEN Now 06/22/2021 11:54 Resu lts for AM ELECTRIC WELDER HELPER this procedure are in the results section. GLUCOSE LEVEL Now 06/22/2021 11:54 Results fo r AM ELECTRIC WELDER HELPER this procedure are in the results section. MANUAL DIFFERENTIAL STAT 06/22/2021 11:54 Resu lts for AM ELECTRIC WELDER HELPER this procedure are in the results section. Results CBC STAT 06/22/2021 11:54 Results for AM ELECTRIC WELDER HELPER this procedure are in the results section. CKMB Now 06/22/2021 11:54 Results for AM ELECTRIC WELDER HELPER this procedure are in the results section. CREATINE KINASE Now 06/22/2021 11:54 Results for AM ELECTRIC WELDER HELPER this procedure are in the results section. NT PRO BNP Now 06/22/2021 11:54 Results for AM ELECTRIC WELDER HELPER this procedure are in the results section. PHOSPHORUS LEVEL Now 06/22/2021 11:54 Results for AM ELECTRIC WELDER HELPER this procedure are in the results section. MAGNESIUM LEVEL Now 06/22/2021 11:54 Results for AM ELECTRIC WELDER HELPER this procedure are in the results section. COMPREHENSIVE METABOLIC Now 06/22/2021 11:54 PANEL AM ELECTRIC WELDER HELPER COMPLETE BLOOD COUNT W/ Now 06/22/2021 11:54 DIFFERENTIAL AM ELECTRIC WELDER HELPER COVID-19 (SARS-COV-2) Now 06/22/2021 11:54 Re sults for ASYMPTOMATIC-LT AM ELECTRIC WELDER HELPER this procedu re are in the results section. EKG, 12-LEAD (PORTABLE) Routine 06/22/2021 EKG, 12-LEAD (PORTABLE) STAT 06/22/2021 CT HEAD/NECK SIMULATION Routine 06/21/2021 9:00 Primary squam ous Results for WO CONTRAST (RO) AM ELECTRIC WELDER HELPER cell carcinoma of this p rocedure larynx are in the results section. MANUAL DIFFERENTIAL Routine 06/20/2021 8:07 Primary squamous Results for AM ELECTRIC WELDER HELPER cell carcinoma of this proce dure larynx are in the results section. Results CBC Routine 06/20/2021 8:07 Primary squamous Results for AM ELECTRIC WELDER HELPER cell carcinoma of this proce dure larynx are in the results section. FRACTIONATED BILIRUBIN Routine 06/20/2021 8:07 Primary squamo us Results for AM ELECTRIC WELDER HELPER cell carcinoma of this proce dure larynx are in the results section. TOTAL PROTEIN Routine 06/20/2021 8:07 Primary squamous Result s for AM ELECTRIC WELDER HELPER cell carcinoma of this proce dure larynx are in the results section. ASPARTATE Routine 06/20/2021 8:07 Primary squamous Results for AMINOTRANSFERASE AM ELECTRIC WELDER HELPER cell carcinoma of this p rocedure larynx are in the results section. ALANINE Routine 06/20/2021 8:07 Primary squamous Results for AMINOTRANSFERASE AM ELECTRIC WELDER HELPER cell carcinoma of this p rocedure larynx are in the results section. ALKALINE PHOSPHATASE Routine 06/20/2021 8:07 Primary squamous Results for AM ELECTRIC WELDER HELPER cell carcinoma of this proce dure larynx are in the results section. ALBUMIN LEVEL Routine 06/20/2021 8:07 Primary squamous Result s for AM ELECTRIC WELDER HELPER cell carcinoma of this proce dure larynx are in the results section. CALCIUM LEVEL TOTAL Routine 06/20/2021 8:07 Primary squamous Results for AM ELECTRIC WELDER HELPER cell carcinoma of this proce dure larynx are in the results section. .GLOMERULAR FILTRATION Routine 06/20/2021 8:07 Primary squamo us Results for RATE AM ELECTRIC WELDER HELPER cell carcinoma of this proce dure larynx are in the results section. SERUM CREATININE Routine 06/20/2021 8:07 Primary squamous Res ults for AM ELECTRIC WELDER HELPER cell carcinoma of this proce dure larynx are in the results section. ELECTROLYTE PANEL Routine 06/20/2021 8:07 Primary squamous Re sults for AM ELECTRIC WELDER HELPER cell carcinoma of this proce dure larynx are in the results section. BLOOD UREA NITROGEN Routine 06/20/2021 8:07 Primary squamous Results for AM ELECTRIC WELDER HELPER cell carcinoma of this proce dure larynx are in the results section. GLUCOSE LEVEL Routine 06/20/2021 8:07 Primary squamous Result s for AM ELECTRIC WELDER HELPER cell carcinoma of this proce dure larynx are in the results section. PHOSPHORUS LEVEL Routine 06/20/2021 8:07 Primary squamous Res ults for AM ELECTRIC WELDER HELPER cell carcinoma of this proce dure larynx are in the results section. MAGNESIUM LEVEL Routine 06/20/2021 8:07 Primary squamous Resu lts for AM ELECTRIC WELDER HELPER cell carcinoma of this proce dure larynx are in the results section. COMPLETE BLOOD COUNT W/ Routine 06/20/2021 8:07 Primary squam ous DIFFERENTIAL AM ELECTRIC WELDER HELPER cell carcinoma of larynx COMPREHENSIVE METABOLIC Routine 06/20/2021 8:07 Primary squam ous PANEL AM ELECTRIC WELDER HELPER cell carcinoma of larynx MANUAL DIFFERENTIAL Routine 06/13/2021 7:00 Primary squamous Results for AM ELECTRIC WELDER HELPER cell carcinoma of this proce dure larynx are in the results section. Results CBC Routine 06/13/2021 7:00 Primary squamous Results for AM ELECTRIC WELDER HELPER cell carcinoma of this proce dure larynx are in the results section. FRACTIONATED BILIRUBIN Routine 06/13/2021 7:00 Primary squamo us Results for AM ELECTRIC WELDER HELPER cell carcinoma of this proce dure larynx are in the results section. TOTAL PROTEIN Routine 06/13/2021 7:00 Primary squamous Result s for AM ELECTRIC WELDER HELPER cell carcinoma of this proce dure larynx are in the results section. ASPARTATE Routine 06/13/2021 7:00 Primary squamous Results for AMINOTRANSFERASE AM ELECTRIC WELDER HELPER cell carcinoma of this p rocedure larynx are in the results section. ALANINE Routine 06/13/2021 7:00 Primary squamous Results for AMINOTRANSFERASE AM ELECTRIC WELDER HELPER cell carcinoma of this p rocedure larynx are in the results section. ALKALINE PHOSPHATASE Routine 06/13/2021 7:00 Primary squamous Results for AM ELECTRIC WELDER HELPER cell carcinoma of this proce dure larynx are in the results section. ALBUMIN LEVEL Routine 06/13/2021 7:00 Primary squamous Result s for AM ELECTRIC WELDER HELPER cell carcinoma of this proce dure larynx are in the results section. CALCIUM LEVEL TOTAL Routine 06/13/2021 7:00 Primary squamous Results for AM ELECTRIC WELDER HELPER cell carcinoma of this proce dure larynx are in the results section. .GLOMERULAR FILTRATION Routine 06/13/2021 7:00 Primary squamo us Results for RATE AM ELECTRIC WELDER HELPER cell carcinoma of this proce dure larynx are in the results section. SERUM CREATININE Routine 06/13/2021 7:00 Primary squamous Res ults for AM ELECTRIC WELDER HELPER cell carcinoma of this proce dure larynx are in the results section. ELECTROLYTE PANEL Routine 06/13/2021 7:00 Primary squamous Re sults for AM ELECTRIC WELDER HELPER cell carcinoma of this proce dure larynx are in the results section. BLOOD UREA NITROGEN Routine 06/13/2021 7:00 Primary squamous Results for AM ELECTRIC WELDER HELPER cell carcinoma of this proce dure larynx are in the results section. GLUCOSE LEVEL Routine 06/13/2021 7:00 Primary squamous Result s for AM ELECTRIC WELDER HELPER cell carcinoma of this proce dure larynx are in the results section. PHOSPHORUS LEVEL Routine 06/13/2021 7:00 Primary squamous Res ults for AM ELECTRIC WELDER HELPER cell carcinoma of this proce dure larynx are in the results section. MAGNESIUM LEVEL Routine 06/13/2021 7:00 Primary squamous Resu lts for AM ELECTRIC WELDER HELPER cell carcinoma of this proce dure larynx are in the results section. COMPLETE BLOOD COUNT W/ Routine 06/13/2021 7:00 Primary squam ous DIFFERENTIAL AM ELECTRIC WELDER HELPER cell carcinoma of larynx COMPREHENSIVE METABOLIC Routine 06/13/2021 7:00 Primary squam ous PANEL AM ELECTRIC WELDER HELPER cell carcinoma of larynx MANUAL DIFFERENTIAL Routine 06/06/2021 6:58 Primary squamous Results for AM [employer] W[employer] HEL[employer] cell carcinoma of this proce dure larynx are in the results section. Results CBC Routine 06/06/2021 6:58 Primary squamous Results for AM [employer] W[employer] HELPER cell carcinoma of this proce dure larynx are in the results section. FRACTIONATED BILIRUBIN Routine 06/06/2021 6:58 Primary squamo us Results for AM [employer] WELDER HELPER cell carcinoma of this proce dure larynx are in the results section. TOTAL PROTEIN Routine 06/06/2021 6:58 Primary squamous Result s for AM [employer] WELDER HELPER cell carcinoma of this proce dure larynx are in the results section. ASPARTATE Routine 06/06/2021 6:58 Primary squamous Results for AMINOTRANSFERASE AM [employer] W[employer]DER HELPER cell carcinoma of this p rocedure larynx are in the results section. ALANINE Routine 06/06/2021 6:58 Primary squamous Results for AMINOTRANSFERASE AM [employer] W[employer]DER HELPER cell carcinoma of this p rocedure larynx are in the results section. ALKALINE PHOSPHATASE Routine 06/06/2021 6:58 Primary squamous Results for AM [employer] W[employer]DER HELPER cell carcinoma of this proce dure larynx are in the results section. ALBUMIN LEVEL Routine 06/06/2021 6:58 Primary squamous Result s for AM [employer] W[employer] HELPER cell carcinoma of this proce dure larynx are in the results section. CALCIUM LEVEL TOTAL Routine 06/06/2021 6:58 Primary squamous Results for AM [employer] W[employer]DER HELPER cell carcinoma of this proce dure larynx are in the results section. .GLOMERULAR FILTRATION Routine 06/06/2021 6:58 Primary squamo us Results for RATE AM [employer] HEL[employer] cell carcinoma of this proce dure larynx are in the results section. SERUM CREATININE Routine 06/06/2021 6:58 Primary squamous Res ults for AM [employer] W[employer] HELPER cell carcinoma of this proce dure larynx are in the results section. ELECTROLYTE PANEL Routine 06/06/2021 6:58 Primary squamous Re sults for AM [employer] W[employer] HELPER cell carcinoma of this proce dure larynx are in the results section. BLOOD UREA NITROGEN Routine 06/06/2021 6:58 Primary squamous Results for AM [employer] HELPER cell carcinoma of this proce dure larynx are in the results section. GLUCOSE LEVEL Routine 06/06/2021 6:58 Primary squamous Result s for AM [employer] W[employer] HELPER cell carcinoma of this proce dure larynx are in the results section. PHOSPHORUS LEVEL Routine 06/06/2021 6:58 Primary squamous Res ults for AM [employer] W[employer] HELPER cell carcinoma of this proce dure larynx are in the results section. MAGNESIUM LEVEL Routine 06/06/2021 6:58 Primary squamous Resu lts for AM [employer] W[employer]DER HELPER cell carcinoma of this proce dure larynx are in the results section. COMPLETE BLOOD COUNT W/ Routine 06/06/2021 6:58 Primary squam ous DIFFERENTIAL AM [employer] HEL[employer] cell carcinoma of larynx COMPREHENSIVE METABOLIC Routine 06/06/2021 6:58 Primary squam ous PANEL AM [employer] HEL[employer] cell carcinoma of larynx MANUAL DIFFERENTIAL Routine 05/30/2021 8:28 Primary squamous Results for AM [employer] HELPER cell carcinoma of this proce dure larynx are in the results section. Results CBC Routine 05/30/2021 8:28 Primary squamous Results for AM [employer] W[employer] HELPER cell carcinoma of this proce dure larynx are in the results section. FRACTIONATED BILIRUBIN Routine 05/30/2021 8:28 Primary squamo us Results for AM [employer] HELPER cell carcinoma of this proce dure larynx are in the results section. TOTAL PROTEIN Routine 05/30/2021 8:28 Primary squamous Result s for AM [employer] HELPER cell carcinoma of this proce dure larynx are in the results section. ASPARTATE Routine 05/30/2021 8:28 Primary squamous Results for AMINOTRANSFERASE AM [employer] HELPER cell carcinoma of this p rocedure larynx are in the results section. ALANINE Routine 05/30/2021 8:28 Primary squamous Results for AMINOTRANSFERASE AM [employer] HELPER cell carcinoma of this p rocedure larynx are in the results section. ALKALINE PHOSPHATASE Routine 05/30/2021 8:28 Primary squamous Results for AM [employer] HELPER cell carcinoma of this proce dure larynx are in the results section. ALBUMIN LEVEL Routine 05/30/2021 8:28 Primary squamous Result s for AM [employer] HELPER cell carcinoma of this proce dure larynx are in the results section. CALCIUM LEVEL TOTAL Routine 05/30/2021 8:28 Primary squamous Results for AM [employer] HELPER cell carcinoma of this proce dure larynx are in the results section. .GLOMERULAR FILTRATION Routine 05/30/2021 8:28 Primary squamo us Results for RATE AM [employer] HEL[employer] cell carcinoma of this proce dure larynx are in the results section. SERUM CREATININE Routine 05/30/2021 8:28 Primary squamous Res ults for AM [employer] HELPER cell carcinoma of this proce dure larynx are in the results section. ELECTROLYTE PANEL Routine 05/30/2021 8:28 Primary squamous Re sults for AM [employer] HELPER cell carcinoma of this proce dure larynx are in the results section. BLOOD UREA NITROGEN Routine 05/30/2021 8:28 Primary squamous Results for AM [employer] HELPER cell carcinoma of this proce dure larynx are in the results section. GLUCOSE LEVEL Routine 05/30/2021 8:28 Primary squamous Result s for AM [employer] HELPER cell carcinoma of this proce dure larynx are in the results section. PHOSPHORUS LEVEL Routine 05/30/2021 8:28 Primary squamous Res ults for AM [employer] HELPER cell carcinoma of this proce dure larynx are in the results section. MAGNESIUM LEVEL Routine 05/30/2021 8:28 Primary squamous Resu lts for AM [employer] HELPER cell carcinoma of this proce dure larynx are in the results section. COMPLETE BLOOD COUNT W/ Routine 05/30/2021 8:28 Primary squam ous DIFFERENTIAL AM [employer] HEL[employer] cell carcinoma of larynx COMPREHENSIVE METABOLIC Routine 05/30/2021 8:28 Primary squam ous PANEL AM [employer] HEL[employer] cell carcinoma of larynx MANUAL DIFFERENTIAL Routine 05/23/2021 8:42 Primary squamous Results for AM [employer] HELPER cell carcinoma of this proce dure larynx are in the results section. Results CBC Routine 05/23/2021 8:42 Primary squamous Results for AM [employer] HELPER cell carcinoma of this proce dure larynx are in the results section. FRACTIONATED BILIRUBIN Routine 05/23/2021 8:42 Primary squamo us Results for AM [employer] HELPER cell carcinoma of this proce dure larynx are in the results section. TOTAL PROTEIN Routine 05/23/2021 8:42 Primary squamous Result s for AM [employer] HELPER cell carcinoma of this proce dure larynx are in the results section. ASPARTATE Routine 05/23/2021 8:42 Primary squamous Results for AMINOTRANSFERASE AM [employer] HELPER cell carcinoma of this p rocedure larynx are in the results section. ALANINE Routine 05/23/2021 8:42 Primary squamous Results for AMINOTRANSFERASE AM [employer] HELPER cell carcinoma of this p rocedure larynx are in the results section. ALKALINE PHOSPHATASE Routine 05/23/2021 8:42 Primary squamous Results for AM [employer] W[employer] HELPER cell carcinoma of this proce dure larynx are in the results section. ALBUMIN LEVEL Routine 05/23/2021 8:42 Primary squamous Result s for AM [employer] HEL[employer] cell carcinoma of this proce dure larynx are in the results section. CALCIUM LEVEL TOTAL Routine 05/23/2021 8:42 Primary squamous Results for AM [employer] HELPER cell carcinoma of this proce dure larynx are in the results section. .GLOMERULAR FILTRATION Routine 05/23/2021 8:42 Primary squamo us Results for RATE AM [employer] HEL[employer] cell carcinoma of this proce dure larynx are in the results section. SERUM CREATININE Routine 05/23/2021 8:42 Primary squamous Res ults for AM [employer] HELPER cell carcinoma of this proce dure larynx are in the results section. ELECTROLYTE PANEL Routine 05/23/2021 8:42 Primary squamous Re sults for AM [employer] HELPER cell carcinoma of this proce dure larynx are in the results section. BLOOD UREA NITROGEN Routine 05/23/2021 8:42 Primary squamous Results for AM [employer] HELPER cell carcinoma of this proce dure larynx are in the results section. GLUCOSE LEVEL Routine 05/23/2021 8:42 Primary squamous Result s for AM [employer] HELPER cell carcinoma of this proce dure larynx are in the results section. PHOSPHORUS LEVEL Routine 05/23/2021 8:42 Primary squamous Res ults for AM [employer] W[employer] HELPER cell carcinoma of this proce dure larynx are in the results section. MAGNESIUM LEVEL Routine 05/23/2021 8:42 Primary squamous Resu lts for AM [employer] W[employer] HELPER cell carcinoma of this proce dure larynx are in the results section. COMPLETE BLOOD COUNT W/ Routine 05/23/2021 8:42 Primary squam ous DIFFERENTIAL AM [employer] HEL[employer] cell carcinoma of larynx COMPREHENSIVE METABOLIC Routine 05/23/2021 8:42 Primary squam ous PANEL AM [employer] HEL[employer] cell carcinoma of larynx FL MODIFIED BARIUM Routine 05/18/2021 9:57 Primary squamous R esults for SWALLOW W SPEECH AM [employer] HEL[employer] cell carcinoma of this p rocedure larynx are in the results section. CT HEAD/NECK SIMULATION Routine 05/11/2021 10:46 Primary squam ous Results for WO CONTRAST (RO) AM [employer] HEL[employer] cell carcinoma of this p rocedure larynx are in the results section. COVID-19 Routine 05/11/2021 9:05 Encounter for Results fo r (SARS-COV-2) PCR AM [employer] observation for this pro cedure ASYMPTOMATIC other suspected are in the exposure to results biological agent section. ruled out ORTHOPANTOGRAM Routine 05/06/2021 10:53 Encounter for Results for AM [employer] HEL[employer] observation for this procedu re other suspected are in the disease ruled out results section. FIELD ADMINISTRATIVE ASSISTANT 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 Routine 05/06/2021 9:58 Primary squamous Results for AM [employer] HELPER cell carcinoma of this proce dure larynx are in the results section. FRACTIONATED BILIRUBIN Routine 05/04/2021 11:10 Primary squamo us Results for AM [employer] HELPER cell carcinoma of this proce dure larynx are in the results section. TOTAL PROTEIN Routine 05/04/2021 11:10 Primary squamous Result s for AM [employer] HELPER cell carcinoma of this proce dure larynx are in the results section. ASPARTATE Routine 05/04/2021 11:10 Primary squamous Results for AMINOTRANSFERASE AM [employer] HELPER cell carcinoma of this p rocedure larynx are in the results section. ALANINE Routine 05/04/2021 11:10 Primary squamous Results for AMINOTRANSFERASE AM [employer] W[employer] HELPER cell carcinoma of this p rocedure larynx are in the results section. ALKALINE PHOSPHATASE Routine 05/04/2021 11:10 Primary squamous Results for AM [employer] W[employer] HELPER cell carcinoma of this proce dure larynx are in the results section. ALBUMIN LEVEL Routine 05/04/2021 11:10 Primary squamous Result s for AM [employer] W[employer] HELPER cell carcinoma of this proce dure larynx are in the results section. .GLOMERULAR FILTRATION Routine 05/04/2021 11:10 Primary squamo us Results for RATE AM [employer] HELPER cell carcinoma of this proce dure larynx are in the results section. SERUM CREATININE Routine 05/04/2021 11:10 Primary squamous Res ults for AM [employer] W[employer] HELPER cell carcinoma of this proce dure larynx are in the results section. VITAMIN D 25 HYDROXY Routine 05/04/2021 11:10 Primary squamous Results for LEVEL AM [employer] HELPER cell carcinoma of this proce dure larynx are in the results section. HEPATIC FUNCTION PANEL Routine 05/04/2021 11:10 Primary squamo us AM [employer] HELPER cell carcinoma of larynx CALCIUM LEVEL TOTAL Routine 05/04/2021 11:10 Primary squamous Results for AM [employer] W[employer] HELPER cell carcinoma of this proce dure larynx are in the results section. PHOSPHORUS LEVEL Routine 05/04/2021 11:10 Primary squamous Res ults for AM [employer] W[employer] HELPER cell carcinoma of this proce dure larynx are in the results section. MAGNESIUM LEVEL Routine 05/04/2021 11:10 Primary squamous Resu lts for AM [employer] W[employer] HELPER cell carcinoma of this proce dure larynx are in the results section. GLUCOSE, RANDOM Routine 05/04/2021 11:10 Primary squamous Resu lts for AM [employer] W[employer] HELPER cell carcinoma of this proce dure larynx are in the results section. SERUM CREATININE Routine 05/04/2021 11:10 Primary squamous AM [employer] W[employer] HELPER cell carcinoma of larynx BLOOD UREA NITROGEN Routine 05/04/2021 11:10 Primary squamous Results for AM [employer] W[employer] HELPER cell carcinoma of this proce dure larynx are in the results section. ELECTROLYTE PANEL Routine 05/04/2021 11:10 Primary squamous Re sults for AM [employer] HELPER cell carcinoma of this proce dure larynx are in the results section. COVID-19 Routine 05/04/2021 10:23 Suspected COVID-19 Resul ts for (SARS-COV-2) PCR AM [employer] HEL[employer] this proced ure ASYMPTOMATIC are in the results section. TMP HCVAB INTERP Routine 05/03/2021 8:26 Results for AM [employer] HELPER this procedure are in the results section. FRACTIONATED BILIRUBIN Routine 05/03/2021 8:26 Primary squamo us Results for AM [employer] HELPER cell carcinoma of this proce dure larynx are in the results section. TOTAL PROTEIN Routine 05/03/2021 8:26 Primary squamous Result s for AM [employer] HELPER cell carcinoma of this proce dure larynx are in the results section. ASPARTATE Routine 05/03/2021 8:26 Primary squamous Results for AMINOTRANSFERASE AM [employer] HELPER cell carcinoma of this p rocedure larynx are in the results section. ALANINE Routine 05/03/2021 8:26 Primary squamous Results for AMINOTRANSFERASE AM [employer] W[employer]DER HELPER cell carcinoma of this p rocedure larynx are in the results section. ALKALINE PHOSPHATASE Routine 05/03/2021 8:26 Primary squamous Results for AM [employer] W[employer] HELPER cell carcinoma of this proce dure larynx are in the results section. ALBUMIN LEVEL Routine 05/03/2021 8:26 Primary squamous Result s for AM [employer] W[employer] HELPER cell carcinoma of this proce dure larynx are in the results section. CALCIUM LEVEL TOTAL Routine 05/03/2021 8:26 Primary squamous Results for AM [employer] W[employer] HELPER cell carcinoma of this proce dure larynx are in the results section. .GLOMERULAR FILTRATION Routine 05/03/2021 8:26 Primary squamo us Results for RATE AM [employer] HELPER cell carcinoma of this proce dure larynx are in the results section. SERUM CREATININE Routine 05/03/2021 8:26 Primary squamous Res ults for AM [employer] W[employer] HELPER cell carcinoma of this proce dure larynx are in the results section. ELECTROLYTE PANEL Routine 05/03/2021 8:26 Primary squamous Re sults for AM [employer] W[employer] HELPER cell carcinoma of this proce dure larynx are in the results section. BLOOD UREA NITROGEN Routine 05/03/2021 8:26 Primary squamous Results for AM [employer] W[employer] HELPER cell carcinoma of this proce dure larynx are in the results section. GLUCOSE LEVEL Routine 05/03/2021 8:26 Primary squamous Result s for AM [employer] W[employer] HELPER cell carcinoma of this proce dure larynx are in the results section. MANUAL DIFFERENTIAL Routine 05/03/2021 8:26 Primary squamous Results for AM [employer] W[employer] HELPER cell carcinoma of this proce dure larynx are in the results section. Results CBC Routine 05/03/2021 8:26 Primary squamous Results for AM [employer] HELPER cell carcinoma of this proce dure larynx are in the results section. FREE THYROXINE Routine 05/03/2021 8:26 Primary squamous Resul ts for AM [employer] HELPER cell carcinoma of this proce dure larynx are in the results section. HEPATITIS C VIRUS Routine 05/03/2021 8:26 Primary squamous Re sults for ANTIBODY AM [employer] HEL[employer] cell carcinoma of this proce dure larynx are in the results section. THYROID STIMULATING Routine 05/03/2021 8:26 Primary squamous Results for HORMONE AM [employer] HELPER cell carcinoma of this proce dure larynx are in the results section. COMPREHENSIVE METABOLIC Routine 05/03/2021 8:26 Primary squam ous PANEL AM [employer] W[employer] HELPER cell carcinoma of larynx COMPLETE BLOOD COUNT W/ Routine 05/03/2021 8:26 Primary squam ous DIFFERENTIAL AM [employer] HELPER cell carcinoma of larynx CT CHEST W CONTRAST Routine 05/03/2021 7:27 Primary squamous Results for AM [employer] W[employer] HELPER cell carcinoma of this proce dure larynx are in the results section. CT SOFT TISSUE NECK W Routine 05/03/2021 7:27 Primary squamou s Results for CONTRAST AM [employer] HELPER cell carcinoma of this proce dure larynx are in the results section. POC CREATININE Routine 05/03/2021 6:56 Results f or AM [employer] HEL[employer] this procedure are in the results section. OSI PET CT SKULL TO MID Routine 04/07/2021 1:24 Cancer Results for THIGH PM CDT this procedure are in the results section. PATHOLOGY OUTSIDE Routine 03/28/2021 Results fo r INTERPRETATION this procedur e are in the results section. OSI CHEST Routine 03/24/2021 1:24 Cancer Results for PM CDT this procedure are in the results section. after 09/28/2020 Results Modified Barium Swallow w Speech (09/23/2021 10:46 AM CDT)Only the most recent of3 resultswithin the time period is included. Anatomical Region Laterality Modality Neck Radio Fluoroscopy Specimen Impressions [id number] - 09/23/2021 3:54 PM CDT 1. Silent aspiration with thin liquids w as reduced with strategies. Silent laryngeal penetration with thick liquids was reduced with strategies. 2. Moderate pharyngeal residue was reduc ed with strategies. Refer to speech pathology note for furth er details. 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 The patient was given barium mixed with a variety of consistencies to swallow by mouth under videofluoroscopy. Findings: Sensate and silent aspiratio n were seen with thin liquids which was reduced with strategies. Flash and silent laryngeal penetration were seen with nectar and honey which was reduced with thr oat clears / reswallows. Much of the asp iration and penetration occurred immediately after the primary swallow. There was moderate pharyngeal residue with honey, pudding and crackers which reduced with liquid washes, throat clears and reswallows. 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 The patient was given barium mixed with a variety of consistencies to swallow by mouth under videofluoroscopy. Findings: Sensate and silent aspiration were seen with thin liquids which was reduced with strategies. Flash and silent laryngeal penetration were seen with nectar and honey which was reduced with throat clears / reswallows. Much of the aspiration and p enetration occurred immediately after the primary swallow. There was moderate pharyngeal residue with honey, pudding and crackers which reduced with liquid washes, throat clears and reswallows. IMPRESSION: 1. Silent aspiration with thin liquids w as reduced with strategies. Silent laryngeal penetration with thick liquids was reduced with strategies. 2. Moderate pharyngeal residue was reduc ed with strategies. Refer to speech pathology note for furth er details. Performing Organization Address City/State/ZIP Code Phon e Number [id number] CT Soft Tissue Neck with Contrast (09/20/2021 4:26 PM CDT)Only the most recent of2 resultswithin the time period is included. Anatomical Region Laterality Modality Neck Computed Tomography Specimen Impressions [id number] - 09/21/2021 7:52 AM CDT 1. Near complete resolution of previou sly present enhancement within the supraglottic larynx with interval development of enhancement within the aryepiglottic folds and hypopharynx as described above which may be reflective of radiation eff ects. Recommend correlation with direct inspection. 2. No evidence of new cervical adenopa thy to suggest herrera disease recurrence in the neck. Occasional filament maker errors may have occurred due to the inherent limitations of voice recognition software, and incorrect words/phrases may have been missed during proofreading. Please interpret using context where substitutions have occurred. 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 Findings: There is near complete interva l resolution of previously present enhancement within the supraglottic larynx with trace linear enhancement and redemonstration of an ulceration (series 9 image 1 32). There is interval development of en hancement within the aryepiglottic folds and along the piriform sinuses with partial effacement of the larynx at this level. Radiation effects are noted in the neck without any evidence of new abnormal- appearing lymph nodes. Atherosclerotic calcifications are prese nt at bilateral common carotid artery bifurcations. Mild degenerative changes are noted within the cervical spine with anterior osteophytes and posterior disc ost eophyte complexes, the latter indenting the ventral CSF space predominantly at C5-C6 level. The visualized orbits and brain parenchy ma do not reveal any focal lesions. The paranasal sinuses and mastoid air cells are predominantly clear. The partially imaged lung apices are bet ter evaluated on the CT chest study. 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 Findings: There is near complete interva l resolution of previously present enhancement within the supraglottic larynx with trace linear enhancement and redemonstration of an ulceration (series 9 image 132). There is interval development of enhancement with in the aryepiglottic folds and along the piriform sinuses with partial effacement of the larynx at this level. Radiation effects are noted in the neck without any evidence of new abnormal- appearing lymph nodes. Atherosclerotic calcifications are prese nt at bilateral common carotid artery bifurcations. Mild degenerative changes are noted within the cervical spine with anterior osteophytes and posterior disc osteophyte complexes, the latter indenting the vent ral CSF space predominantly at C5-C6 level. The visualized orbits and brain parenchy ma do not reveal any focal lesions. The paranasal sinuses and mastoid air cells are predominantly clear. The partially imaged lung apices are bet ter evaluated on the CT chest study. IMPRESSION: 1. Near complete resolution of previous ly present enhancement within the supraglottic larynx with interval development of enhancement within the aryepiglottic folds and hypopharynx as described above which may be reflective of radiation effects. Recomme nd correlation with direct inspection. 2. No evidence of new cervical adenopat hy to suggest herrera disease recurrence in the neck. Occasional filament maker errors may have occurred due to the inherent limitations of voice recognition software, and incorrect words/phrases may have been missed during proofreading. Please interpret using context where substitutions have occurred. Performing Organization Address City/State/ZIP Code Phon e Number [id number] CT Chest with Contrast (09/20/2021 4:26 PM CDT)Only the most recent of2 results within the time period is included. Anatomical Region Laterality Modality Chest Computed Tomography Specimen Impressions [id number] - 09/21/2021 12:03 PM CDT New opacities in the lingula and left lower lobe concerning for aspiration and/or pneumonia. Clinical correlation follow-up to resolution is recommended. No definite sign of metastatic disease in the chest. 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 Clarify subsequent treatment strategy. Indication: Therapeutic response assessm ent, Multiple incidental pulmonary nodules, Incidental pulmonary nodule, 6-8 mm, Incidental pulmonary nodule, partial ground glass, No signs or symptoms of lung c ancer, No iodinated contrast contraindic ation, Cancer staging or restaging, supraglottic larynx squamous cell carcinoma; pulmonary nodules. Assess for active and metastatic disease. Clarify subsequent treatment strategy. Comparison: 07/08/2021. Technique: CT of the chest was performed using intravenous contrast.. Findings: Neck: There are no enlarged supraclavicu lar nodes. The visualized portion of the thyroid gland appear unremarkable. Lung parenchyma: Filling defects in cent ral airways likely adherent mucus. Central airways are patent. Mild emphysematous changes. Stable 2 mm left upper lobe pulmonary no dule unchanged relative to 05/03/2021 likely sequela of granulomatous disease. New band opacity in the lingula and ill- defined opacities in the posterior aspect of the left lower lobe may be due to atelectasis, aspiration and/or pneumonia. Left lower lobe opacities noted on images 73 through 82, and image 103 through 112. Mediastinum, axillary and hilar regions: No enlarged hilar, mediastinal, or axillary nodes. . Pleura:There are no pleural effusions. Cardiac:The cardiac silhouette is not en larged. No sign of a pericardial effusion. Limited imaging the abdomen:No focal vanna er lesions. No adrenal gland nodularity. The visualized portions of the spleen is not enlarged. Clips in gallbladder fossa compatible with previous cholecystectomy. Percutaneous gastrostomy tube. No aggressive osseous lesions. Degenerat sheron changes of the spine. 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 Clarify subsequent treatment strategy. Indication: Therapeutic response assessm ent, Multiple incidental pulmonary nodules, Incidental pulmonary nodule, 6-8 mm, Incidental pulmonary nodule, partial ground glass, No signs or symptoms of lung cancer, No iodinated contrast contraindication, Cancer stagin g or restaging, supraglottic larynx squamous cell carcinoma; pulmonary nodules. Assess for active and metastatic disease. Clarify subsequent treatment strategy. Comparison: 07/08/2021. Technique: CT of the chest was performed using intravenous contrast.. Findings: Neck: There are no enlarged supraclavicu lar nodes. The visualized portion of the thyroid gland appear unremarkable. Lung parenchyma: Filling defects in cent ral airways likely adherent mucus. Central airways are patent. Mild emphysematous changes. Stable 2 mm left upper lobe pulmonary no dule unchanged relative to 05/03/2021 likely sequela of granulomatous disease. New band opacity in the lingula and ill- defined opacities in the posterior aspect of the left lower lobe may be due to atelectasis, aspiration and/or pneumonia. Left lower lobe opacities noted on images 73 through 82, and image 103 through 112. Mediastinum, axillary and hilar regions: No enlarged hilar, mediastinal, or axillary nodes. . Pleura:There are no pleural effusions. Cardiac:The cardiac silhouette is not en larged. No sign of a pericardial effusion. Limited imaging the abdomen:No focal vanna er lesions. No adrenal gland nodularity. The visualized portions of the spleen is not enlarged. Clips in gallbladder fossa compatible with previous cholecystectomy. Percutaneous gastrostomy tube. No aggressive osseous lesions. Degenerat sheron changes of the spine. IMPRESSION: New opacities in the lingula and left lo wer lobe concerning for aspiration and/or pneumonia. Clinical correlation follow-up to resolution is recommended. No definite sign of metastatic disease in the chest. Performing Organization Address City/State/ZIP [facility] Phon e Number [id number] .Serum Creatinine (09/20/2021 11:58 AM CDT)Only the most recent of28 results within the time period is included. Pathologist Sig nature Creatinine 0.98 0.67 - 1.17 mg/dL [facility] CANCER C ENTER Specimen Blood Narrative [facility] - 2 1:28 PM CDT Pls schedule videostrobe prior to MD eric ts Performing Organization Address City/State/[facility] Phon e Number [facility] CANCER Unless otherwise noted, [place] [address] [address] all lab tests performed by: Division of Pathology and Laboratory Medicine [address] [place] [address] Glomerular Filtration Rate (09/20/2021 11:58 AM CDT)Only the most recent of28 resultswithin the time period is included. eGFR-AA 89 >=60 [facility] Comment: mL/min/1.73 [facility] CENTER Normal eGFR: >= 60 mL/min/1.73 m2 sq. m Note: The eGFR is calculated using the CKD-EPI equation. The eGFR declines with age. eGFR <60 mL/min/1.73 m2 is considered as "decreased". This equation should only be used for patients 18 and older. According to the National [facility]'s Kidney Disease Outcome Quality Initiative (KDOQI) [...] GFR 15-29 5 Kidney failure <15 eGFR-JOSELITO 77 >=60 [facility] Comment: mL/min/1.73 [facility] Normal eGFR: >= 60 mL/min/1.73 m2 sq. m Note: The eGFR is calculated using the CKD-EPI equation. The eGFR declines with age. eGFR <60 mL/min/1.73 m2 is considered as "decreased". This equation should only be used for patients 18 and older. According to the National [facility]'s Kidney Disease Outcome Quality Initiative (KDOQI) classification [...] 15-29 5 Kidney failure <15 Specimen Blood Narrative [facility] - 2 1:28 PM CDT Pls schedule videostrobe prior to MD eric ts Performing Organization Address City/[facility] Phon e Number [facility] CANCER Unless otherwise noted, [address] all lab tests performed by: Division of Pathology and Laboratory Medicine [address] (ABNORMAL) BUN (09/20/2021 11:58 AM CDT)Only the most recent of28 resultswithin the time period is included. Pathologist Sig nature BUN 35 (H) 6 - 23 mg/dL [facility] Specimen Blood Narrative [facility] - 2 1:28 PM CDT Pls schedule videostrobe prior to MD eric ts Performing Organization Address City/State/[facility] Phon e Number [facility] CANCER Unless otherwise noted, [address] all lab tests performed by: Division of Pathology and Laboratory Medicine [address] [employer] [address] [place] TSH (09/20/2021 11:58 AM CDT)Only the most recent of2 resultswithin the time period is included. Pathologist Sig nature TSH 3.11 0.27 - 4.20 mcunit/mL [facility] Specimen Blood Narrative [facility] - 2 1:28 PM CDT Pls schedule videostrobe prior to MD eric luis Performing Organization Address City/[facility]/ZIP [facility] Phon e Number [facility] CANCER Unless otherwise noted, [address] all lab tests performed by: Division of Pathology and Laboratory Medicine [address] [place] [address] Free T4 (09/20/2021 11:58 AM CDT)Only the most recent of2 resultswithin the time period is included. Pathologist [facility] nature T4 Free 1.40 0.93 - 1.70 ng/dL [facility] C ENTER Specimen Blood Narrative [facility] - 2 1:28 PM CDT Pls schedule videostrobe prior to MD eric ts Performing Organization Address City/[facility] Phon e Number [facility] CANCER Unless otherwise noted, [address] all lab tests performed by: Division of Pathology and Laboratory Medicine [address] [place] [address] (ABNORMAL) POC Glucose Screen (08/31/2021 10:15 AM CDT)Only the most recent of40 resultswithin the time period is included. [facility] POC Glucose 131 (H) 70 - 99 [...] Sample Type Capillary POC TELCOR Performing [facility] POC TELCOR [facility] [place] [place] Clinical Lab, [address] [place] [address]; Marketing Instructor: Loida Chavez MD Specimen Blood Performing Organization Address City/[facility] Phon e Number POC TELCOR (ABNORMAL) .CBC (08/31/2021 4:26 AM CDT)Only the most recent of21 resultswithin the time period is included. [facility] WBC 4.4 4.0 - 11.0 [facility] K/ CANCER CENTER RBC 3.03 (L) 4.50 - 6.00 [facility] Hgb 8.3 (L) 14.0 - 18.0 [facility] gm/dL [facility] Hct 26.8 (L) 40.0 - 54.0 % [facility] MCV 88 82 - 98 fL [facility] MCH 27.4 27.0 - 31.0 pg [facility] MCHC 31.0 31.0 - 36.0 [facility] gm/dL [facility] RDW-SD 46.0 35.1 - 46.3 fL [facility] RDW-CV 14.1 12.0 - 15.5 % [facility] Platelet count 236 140 - 440 K/uL [facility] MPV 10.0 4.0 - 10.4 fL [facility] INRBC 0.0 <=0.0 % [facility] Comment: [facility] The INRBC (instrument NRBC) value reflects the enumera tion of nucleated red blood cells contained in a 200uL samp le of whole blood analyzed by the instrument. This value may differ from the NRBC value reported in a manual differ ential, which is based on a 100 cell differential. Specimen Blood Performing Organization Address City/State/[facility] Code Phon e Number [facility] Unless otherwise noted, [place] [address] [address] all lab tests performed by: Division of Pathology and Laboratory Medicine [address] (ABNORMAL) Differential (08/31/2021 4:26 AM CDT)Only the most recent of21 resultswithin the time period is included. Neutrophil % 71.7 (H) 42.0 - 66.0 % [facility] Lymphocyte % 14.8 (L) 24.0 - 44.0 % [facility] Monocyte % 6.6 2.0 - 7.0 % [facility] Eosinophil % 5.7 (H) 1.0 - 4.0 % [facility] Basophil % 0.7 0.0 - 1.0 % [facility] IGRE % 0.5 (H)Comment: 0.0 - 0.4 % [facility] IGRE % count [facility] [place] includes Metamyelocytes, Myelocytes, and Promyelocytes. Neutrophil Abs 3.16 1.70 - 7.30 [facility] K/uL [facility] CENTER Lymphocyte Abs 0.65 (L) 1.00 - 4.80 [facility] Monocyte Abs 0.29 0.08 - 0.70 [facility] Eosinophil Abs 0.25 0.04 - 0.40 [facility] Basophil Abs 0.03 0.00 - 0.10 [facility] IG Abs 0.02 0.00 - 0.04 [facility] Specimen Blood Performing Organization Address [facility] Phon e Number [facility] CANCER Unless otherwise noted, [address] all lab tests performed by: Division of Pathology and Laboratory Medicine [address] [place] Phosphorus Level (08/31/2021 4:26 AM CDT)Only the most recent of26 results within the time period is included. Pathologist Sig nature Phosphorus 3.0 2.5 - 4.5 mg/dL [facility] TER Specimen Blood Performing Organization Address [facility] Phon e Number [facility] Unless otherwise noted, [address] all lab tests performed by: Division of Pathology and Laboratory Medicine [address] [place] Magnesium Level (08/31/2021 4:26 AM CDT)Only the most recent of26 resultswithin the time period is included. Pathologist Sig nature Magnesium 1.8 1.6 - 2.6 mg/dL [facility] TER Specimen Blood Performing Organization Address [facility] Phon e Number [facility] Unless otherwise noted, [address] all lab tests performed by: Division of Pathology and Laboratory Medicine [address] [place] (ABNORMAL) Glucose Level (08/31/2021 4:26 AM CDT)Only the most recent of26 resultswithin the time period is included. Glucose Level 136 (H) 70 - 99 mg/dL [facility] Comment: CANCER CENTER Effective 12/29/15, the gluco se reference intervals have been updated based on [place] [employer] guidelines (Standards of Medical Care in Diabetes 2016. Diabetes Care 2016; 39: S13-S22). Fasting blood glucose: Normal: 70-99 mg/dL Impaired fasting glucose (in creased risk for diabetes or pre-diabetes): 100- 125 mg/dL Diabetes mellitus: >/=126 mg/dL Random blood glucose: Normal: 70-199 mg/dL Note: Random glucose >100 mg/dL is assoc iated with increased risk for diabetes Specimen Blood Performing Organization Address City/[facility] Phon e Number [facility] CANCER Unless otherwise noted, [address] all lab tests performed by: Division of Pathology and Laboratory Medicine [address] [place] [address] Calcium Level (08/31/2021 4:26 AM CDT)Only the most recent of26 resultswithin the time period is included. Pathologist Sig [facility] Calcium Lvl 8.4 8.4 - 10.2 mg/dL [facility] NTER Specimen Blood Performing Organization Address [facility] Phon e Number [facility] Unless otherwise noted, [address] all lab tests performed by: Division of Pathology and Laboratory Medicine [address] [place] [address] (ABNORMAL) Electrolyte Panel (08/31/2021 4:26 AM CDT)Only the most recent of27 resultswithin the time period is included. Pathologist Sig nature Sodium Lvl 138 136 - 145 mEq/L [facility] Potassium Lvl 3.4 (L) 3.5 - 5.1 mEq/L [facility] Chloride 101 98 - 107 mEq/L [facility] CO2 26 22 - 29 mEq/L [facility] Anion Gap 11 4 - 14 mEq/L [facility] Specimen Blood Performing Organization Address [facility] Phon e Number [facility] CANCER Unless otherwise noted, [address] all lab tests performed by: Division of Pathology and Laboratory Medicine [address] [place] [address] XR Abdomen 1 View Portable (08/29/2021 6:11 PM CDT) Anatomical Region Laterality Modality Abdomen Digital Radiography Specimen Impressions [id number] - 08/29/2021 7:19 PM CDT Dobbhoff tube follows the course of the duodenum, tip projecting near the duodenojejunal junction. Narrative [id number] - 08/29/2021 7:19 PM CDT FULL RESULT: [...] Organization Address City/State/ZIP Code Phon e Number [id number] Pathology Biopsy Interpretation (08/29/2021 2:14 PM CDT) Pathologist Sig nature Submitted Clinical Iron deficiency [facility] History anemia, not otherwise specified [D50.9] Diagnosis A: Duodenum, biopsy: [facility] Electro nically signed [...] p, biopsy: Tubular adenoma. Gross Description A: [facility] Duodenum, duodenum: 3 soft t [...] in D1. ET Disclaimer "Some tests reported [facility] here may have been developed and performance characteristics determined by [facility] Pathology and Laboratory Medicine. These tests have not been specifically cleared or approved by the U.S. Food and Drug Administration. If applicable, controls were reviewed and showed appropriate reactivity." Specimen Tissue - Duodenum Tissue - Stomach Tissue - Stomach Tissue - Colon Performing Organization Address [facility] Phon e Number [facility] [place] [address] [address] (ABNORMAL) Prothrombin Time with INR (08/29/2021 5:31 AM CDT)Only the most recent of3 resultswithin the time period is included. Pathologist Sig reji PT 14.9 (H) 11.5 - 13.9 [facility](s) CENTER INR 1.26 (H) 0.90 - 1.10 [facility] Specimen Blood Performing Organization Address [facility] Phon e Number [facility] CANCER Unless otherwise noted, [address] all lab tests performed by: Division of Pathology and Laboratory Medicine [facility] [address] [place] Transfuse RBC:Transfusion Date: 08/25/2021 (08/26/2021 6:58 AM CDT)Only the most recent of2 resultswithin the time period is included.Confirm ABORh (08/25/2021 6:19 PM CDT) Pathologist Sig nature ABORh Confirm. O NEG [facility] CANCER CENT ER Specimen Blood Performing Organization Address [facility] Phon e Number [facility] CANCER Unless otherwise noted, [address] all lab tests performed by: Division of Pathology and Laboratory Medicine [facility] [address] [place] COVID-19 (SARS-CoV-2)Asymptomatic-LT (08/25/2021 6:15 PM CDT)Only the most recent of3 resultswithin the time period is included. COVID19 Not Detected Not Detected [facility] (SARS-CoV-2) [facility] [place] COVID19 SARS Inpatient Admission [facility] Indication CANCER CENTER Covid 19 Comment See Note [facility] Comment: CANCER CENTER The rufino SARS-CoV-2 nucleic acid test for use on the rufino Alyson System is a real-time RT-PCR assay intended for the qualitative detection of SARS-CoV-2 (COVID-19) viral RNA in nasopharyngeal swabs from either individuals suspected of COVID-19 by their healthcare provider or from any individual, including individuals without symptoms or other reasons to suspect COVID-19. A fact sheet for patients provided by the rip saw operator ([employer]) can be reviewed at: https://www.fda.gov/media/15 3304/download. A fact sheet for Health Care providers is provided by the rip saw operator ([employer]) and can be reviewed at: https://www.fda.gov/media/342701/download Results must be interpreted within the context [...] and high-complexity tests. The Microbiology Laboratory at [facility], CLIA Accreditation # [id number] and CAP Accreditation #[id number], verified the performance characteristics of this assay. Internal controls are used to monitor all stages of the test process. Specimen Nasopharyngeal Swab Performing Organization Address City/[facility]/ZIP Code Phon e Number [facility] Unless otherwise noted, [address] all lab tests performed by: Division of Pathology and Laboratory Medicine [address] [place] Clot Expiration Date (08/25/2021 6:15 PM CDT) Pathologist Sig nature T & S Expiration 08/28/2021 [facility] Specimen Blood Performing Organization Address City/[facility] Phon e Number [facility] CANCER Unless otherwise noted, [address] all lab tests performed by: Division of Pathology and Laboratory Medicine [address] [place] Fractionated Bilirubin (08/25/2021 6:15 PM CDT)Only the most recent of12 resultswithin the time period is included. Bili Total 0.4 <=1.2 mg/dL [facility] Comment: CANCER CENTER Indocyanine Green (ICG) may cause falsely elevated bilirubin results. Total and direct bilirubin must not be measured from samples containing indocyanine green. False elevation of total emmett irubin can be seen in patients with IgG concentrations above 28 g/L. Bili Direct 0.2Comment: <=0.3 mg/dL [facility] Indocyanine Green [facility] (ICG) may cause falsely elevated bilirubin results. Total and direct bilirubin must not be measured from samples containing indocyanine green. Bili Indirect 0.2 0.0 - 0.9 [facility] mg/dL CANCER CENTER Specimen Blood Performing Organization Address City/[facility] Phon e Number [facility] CANCER Unless otherwise noted, [address] all lab tests performed by: Division of Pathology and Laboratory Medicine [address] [place] [address] Interpretation Antibody Screen Negative (08/25/2021 6:15 PM CDT) [facility] Auto Neg ABSC At the present time, patitaurus t plasma shows no evidence of RBC alloantibodies. [place] MD LICEA Interp Comment: [facility] MD Carri ALLEN [id number] Dictated by: NICHOLE HUMPHREY MD - [id number] Dictated Date/Time: 08.27.19 8:43 AM CDT Transcribed Date/Time: 08.26.2021 8:43 AM CDT Electronically Signed By: MD Carri CAZARES [id number] on 08.26.2021 8:43 AM C Specimen Blood Performing Organization Address City/[facility] Phon e Number [facility] Unless otherwise noted, [address] all lab tests performed by: Division of Pathology and Laboratory Medicine [address] [place] [address] Interpretation Crossmatch (08/25/2021 6:15 PM CDT) [facility] XM Interp RBC units crossmatched for transfusion appear ac ceptable. [facility] Comment: CANCER CENTER NICHOLE HUMPHREY MD - [id number] Dictated by: NICHOLE HUMPHREY MD - [id number] Dictated Date/Time: 08.27.19 8:43 AM CDT Transcribed Date/Time: 08.26.2021 8:43 AM CDT Electronically Signed By: MD Carri CAZARES [id number] on 08.26.2021 8:43 AM C Specimen Blood Performing Organization Address City/[facility]/ZIP Code Phon e Number [facility] Unless otherwise noted, [address] all lab tests performed by: Division of Pathology and Laboratory Medicine [address] aPTT (08/25/2021 6:15 PM CDT)Only the most recent of2 resultswithin the time period is included. Pathologist Sig nature aPTT 32.7 24.7 - 36.8 second(s) [facility]ENTER Specimen Blood Performing Organization Address City/[facility]/ZIP [facility] Phon e Number [facility] CANCER Unless otherwise noted, [address] [address] all lab tests performed by: Division of Pathology and Laboratory Medicine [address] ABORh (08/25/2021 6:15 PM CDT) Pathologist Sig nature ABORh. O NEG [facility] Specimen Blood Performing Organization Address City/[facility]/ZIP Code Phon e Number [facility] CANCER Unless otherwise noted, [address] all lab tests performed by: Division of Pathology and Laboratory Medicine [address] [place] Antibody Screen (08/25/2021 6:15 PM CDT) Pathologist Sig nature ABSC. Negative ABSC [facility] R Specimen Blood Performing Organization Address City/[facility]/ZIP [facility] Phon e Number [facility] CANCER Unless otherwise noted, [address] all lab tests performed by: Division of Pathology and Laboratory Medicine [address] [place] ALT (08/25/2021 6:15 PM CDT)Only the most recent of12 resultswithin the time period is included. Pathologist Sig nature ALT 29 <=41 U/L [facility] Specimen Blood Performing Organization Address City/[facility] Phon e Number [facility] CANCER Unless otherwise noted, [address] all lab tests performed by: Division of Pathology and Laboratory Medicine [address] Aspartate Aminotransferase (08/25/2021 6:15 PM CDT)Only the most recent of12 resultswithin the time period is included. Pathologist Sig nature AST 32 <=40 U/L [facility] Specimen Blood Performing Organization Address [facility] Phon e Number [facility] Unless otherwise noted, [address] all lab tests performed by: Division of Pathology and Laboratory Medicine [address] [place] Total Protein (08/25/2021 6:15 PM CDT)Only the most recent of12 resultswithin the time period is included. Pathologist Sig nature Total Protein 7.2 6.4 - 8.3 g/dL [facility] TER Specimen Blood Performing Organization Address [facility] Phon e Number [facility] Unless otherwise noted, [address] all lab tests performed by: Division of Pathology and Laboratory Medicine [address] [place] Alkaline Phosphatase (08/25/2021 6:15 PM CDT)Only the most recent of12 results within the time period is included. Pathologist Sig nature Alk Phos 64 40 - 129 U/L [facility] Specimen Blood Performing Organization Address City/[facility] Phon e Number [facility]ER Unless otherwise noted, [address] all lab tests performed by: Division of Pathology and Laboratory Medicine [address] Albumin Level (08/25/2021 6:15 PM CDT)Only the most recent of12 resultswithin the time period is included. Pathologist Sig nature Albumin Lvl 3.7 3.5 - 5.2 gm/dL [facility] TER Specimen Blood Performing Organization Address City/[facility] Phon e Number [facility]ER Unless otherwise noted, [address] all lab tests performed by: Division of Pathology and Laboratory Medicine [address] [place] [address] [place] RBC Product Ready for Lead Software Architect (08/25/2021 4:47 PM CDT) Pathologist [facility] PRBC Product Ready B2 Blood [facility] for Lead Software Architect BankComment: [facility] Product is ready for supervisor opening and picking on August 25, 2021 22:21:56 CDT. Specimen Blood Performing Organization Address City/State/ZIP Code Phon e Number [facility] CAN[facility]ER Unless otherwise noted, [address] all lab tests performed by: Division of Pathology and Laboratory Medicine [address] [place] [address] Prepare RBC:accc, 2 Units (08/25/2021 4:47 PM CDT) Pathologist [facility] PRBC Product Ready 2Comment: Red Blood [facility] Cells Available - [facility] Order Form 03 when ready for product issue. Unit Number [id number] [facility] Product Code [id number] [facility] Unit Expiration [facility] Unit Blood Type 9500 [facility] Product Code Text RBCIRLR CPD AS1 [facility] 500mL CANCER CENTER Crossmatch [id number] [facility] Expiration Date CANCER CENTER Unit Irradiated IRRADIATED [facility] Dispense Status ISSUED [facility] Unit Blood Type O Negative [facility] Product Lead Software Architect .BPAMComment: [facility] Location [facility] Unit Number [id number] [facility] Product Code [id number] [facility] Unit Expiration [id number] [facility] Unit Blood Type 9500 [facility] Product Code Text RBCIRLR CPD AS1 [facility] 500mL [facility] Crossmatch [facility] Expiration Date [facility]ENTER Unit Irradiated IRRADIATED [facility] Dispense Status ISSUED [facility] Unit Blood Type O Negative [facility] Product Lead Software Architect .BPAMComment: [facility] Location CANCER CENTER Specimen Blood Performing Organization Address City/State/ZIP Code Phon e Number [facility]CER Unless otherwise noted, [place] [address] CENTER all lab tests performed by: Division of Pathology and Laboratory Medicine [address] [facility] X-ray Chest 2 Views (08/25/2021 11:17 AM CDT) Anatomical Region Laterality Modality Chest Digital Radiography Specimen Impressions [id number] - 08/25/2021 11:31 AM CDT There are mild opacities over the dorsal costophrenic recess on the lateral view that may represent either aspiration or pneumonia. Narrative [id number] - 08/25/2021 11:31 AM CDT FULL RESULT: [...] either aspiration or pneumonia. Performing Organization Address City/State/[facility] Code Phon e Number [id number] Flexible nasopharyngeal laryngoscopy (08/22/2021 10:38 AM CDT) Narrative Rebecca Brown CCC-SLP - 10:38 AM CDT JAMIE Camarena 08/22/2021 4:05 PM Flexible nasopharyngeal laryngoscopy Date/Time: 08/22/2021 10:38 AM Provider Information: Performed by: SUKHDEEP Camarena P Authorized by: OUMAR [employer] Mechanical Meter Tester present?: no Indications: Indications: videostroboscopy Pre-Procedure Note: core winder machine operator: no Pre-procedure patient condition: coher ent Procedure [...] (RT- PCR) developed for the [employer]0 system and intended for qualitative detection of SARS CoV-2 RNA in nasopharyngeal a nd oropharyngeal swab specimens collected from any individuals, including those suspected of COVID-19 by their healthcare provider, and those without symptoms or other reasons to suspect COVID-19. A fact sheet for patients provided by the rip saw operator ( [employer]) can be reviewed at: https://www.fda.gov/media/13 7623/download. A fact sheet for Health Care providers is provided by the rip saw operator ([employer]) and can be reviewed at: https://www.fda.gov/media/135383/download Results must be interpreted within the context [...] were verified by the Microbiology Laboratory at [facility], CLIA Accreditation #: [id number] and CAP Accreditation #: [id number]. COVID19 SARS HOG FEEDER Swab [facility] Source CANCER CENTER COVID19 SARS Pre-Out of OR [facility] Indication Procedure [facility] CENTER Specimen Nasopharyngeal Swab Performing Organization Address City/State/ZIP Code Phon e Number [facility] CANCER Unless otherwise noted, [place] [address] CENTER all lab tests performed by: Division of Pathology and Laboratory Medicine [address] [place] [address] Echocardiogram 2D Complete (07/11/2021 4:16 PM ELECTRIC WELDER HELPER) Specimen Narrative ISCV - 07/11/2021 4:19 PM ELECTRIC WELDER HELPER Echocardiographic Report Interpretation Summary A complete two-dimensional [...] volumes were not performed [facility]. Cardiac Mechanics/Speckle Tracking Imagi ng: Speckle tracking [...] ( sept): 17.1 62 Performing Organization Address [facility] Phon e Number ISCV EKG, 12-Lead (07/11/2021)Only the most recent of5 resultswithin the time period is included. Specimen Narrative This result has an attachment that is no t available. Performing Organization Address [facility] Phon e Number GASPER IECG (ABNORMAL) Troponin T (In-House) (07/10/2021 6:09 AM ELECTRIC WELDER HELPER)Only the most recent of4 resultswithin the time period is included. Pathologist Sig [employer] Troponin T 37 (H) <=18 ng/L [facility] Comment: CAN[facility] CENTER < 19 ng/L Suggest [...] low results. Specimen Blood Performing Organization Address [facility] Phon e Number [facility] CANCER Unless otherwise noted, [place] [address] [address] all lab tests performed by: Division of Pathology and Laboratory Medicine [employer] (ABNORMAL) Calcium Ionized, Venous (07/09/2021 10:35 PM ELECTRIC WELDER HELPER) Pathologist Sig [employer] V Ion Ca 0.96 (L) 1.15 - 1.29 mmol/L [facility] Specimen Blood Performing Organization Address City/State/ZIP Code Phon e Number [facility] CANCER Unless otherwise noted, [address] all lab tests performed by: Division of Pathology and Laboratory Medicine [facility] (ABNORMAL) Lower Respiratory Culture w/Gram Stain (07/09/2021 5:33 PM ELECTRIC WELDER HELPER) Final Report Normal site shayna present. [facility] Generally of low significance. CANCER CHAR[facility]IE TER Correlate with clinical data and culture history. (A) Path Review The results have been review ed and electronically signed by Pathologist: [facility] BRADY MD #[id number] CANCER CENTE R (A) Gram Stain Report Moderate WBC's seen [facility] Epithelial cells seen [facility] CENTER Moderate Gram Positive Cocci Moderate Gram Variable Madan (A) Specimen Sputum Induced Performing Organization Address City/[facility] Code Phon e Number [facility] CANCER Unless otherwise noted, [address] all lab tests performed by: Division of Pathology and Laboratory Medicine [facility] Vascular Access Ultrasound- VAP RN Device (07/09/2021 3:00 PM ELECTRIC WELDER HELPER) Anatomical Region Laterality Modality Vascular Ultrasound Specimen Narrative Systemgenerated, Documentation - 022 3:00 PM ELECTRIC WELDER HELPER This procedure requires no interpretatio n from the radiologist. Legionella Urine Antigen Path Review (07/08/2021 5:17 PM ELECTRIC WELDER HELPER) Legionella Urine Negative for L. pneumophila serogroup 1 antigen, suggesting no recent or current infection. However, infection due to other serogroups and species of Legionella are not detected by this assay. In additi [facility] Antigen Path on, antigen may not be present in the urine in [facility] Review infection and the level of antigen present in the urine may be below the detection limit of the test. ... Reviewed and Electronically signed by Pathologist: Amaury Sinha MD, PhD #[id number] Comment: AMAURY SINHA MD, PhD - [id number] Dictated by: AMAURY SINHA MD, PhD - [id number] Dictated Date/Time: 07.11.19 1:11 AM ELECTRIC WELDER HELPER Transcribed Date/Time: 07.11.2021 1:11 AM ELECTRIC WELDER HELPER Electronically Signed By: ANIYAH SINHA MD, PhD - [id number] on 07.11.2021 1:11 AM C Specimen Urine Performing Organization Address [facility] Phon e Number [facility] CANCER Unless otherwise noted, [address] all lab tests performed by: Division of Pathology and Laboratory Medicine [facility] [place] Streptococcal Urine Antigen Path Review (07/08/2021 5:17 PM ELECTRIC WELDER HELPER) Streptococcal Urine Presumptive negative for S. pneumoniae antigen in urine, suggesting no current or recent pneumococcal infection. Infection due to S. pneumoniae cannot be ruled out since the level of antigen present in [facility] Antigen Path Review the urine may be below the detection limit o f the [facility]ENTER test. ... Reviewed and Electronically signed by Pathologist: Amaury Sinha MD, PhD #[id number] Comment: AMAURY SINHA MD, PhD - [id number] Dictated by: AMAURY SINHA MD, PhD - [id number] Dictated Date/Time: 07.11.19 1:11 AM ELECTRIC WELDER HELPER Transcribed Date/Time: 07.11.2021 1:11 AM ELECTRIC WELDER HELPER Electronically Signed By: ANIYAH SINHA MD, PhD - [id number] on 07.11.2021 1:11 AM C Specimen Urine Performing Organization Address City/[facility] Phon e Number [facility] CANCER Unless otherwise noted, [address] all lab tests performed by: Division of Pathology and Laboratory Medicine [facility] [place] Streptococcus pneumoniae Urine Antigen (07/08/2021 5:17 PM ELECTRIC WELDER HELPER) Streptococcal Urine Presumptive negative for S. pneumoniae antigen in the urine, suggesting no current or recent pneumococcal infection. However, infection due to S. pneumoniae cannot be completely ruled out since the leve [facility] Antigen Interpretation l of antigen present in the urine may be below the CANCER CENTER detection limit of the test. Streptococcal Urine Negative [facility] Antigen Interpretation [facility] CENTER Specimen Urine Performing Organization Address City/[facility]/ZIP [facility] Phon e Number [facility] CANCER Unless otherwise noted, [address] all lab tests performed by: Division of Pathology and Laboratory Medicine [address] [place] [address] Legionella Urine Antigen (07/08/2021 5:17 PM ELECTRIC WELDER HELPER) Legionella Urine Negative for L. pneumophila serogroup 1 antigen, suggesting no recent or current infection. However, infections due to other serogroups and species of Legionella are not detected by this assay. In addition, antigen may not be present in the urine in [facility] Antigen Interpretation early infection and the leve l of antigen present in the urine may be below the detection limit of the test. CANCER C ENTER Legionella Urine Negative [facility] Antigen Interpretation [facility] CENTER Specimen Urine Performing Organization Address [facility] Phon e Number [facility] CANCER Unless otherwise noted, [address] all lab tests performed by: Division of Pathology and Laboratory Medicine [address] [place] [address] General Laboratory Add-On Test (07/08/2021 3:35 PM ELECTRIC WELDER HELPER) Pathologist Sig nature Ordered Test Added [facility] Test Needed Procalcitonin [facility] Specimen Existing Performing Organization Address [facility] Phon e Number [facility] CANCER Unless otherwise noted, [address] all lab tests performed by: Division of Pathology and Laboratory Medicine [address] [place] [address] MRSA Screening Culture (07/08/2021 3:23 PM ELECTRIC WELDER HELPER) Pathologist [facility] Final Report No Methicillin resistant [facility] Staphylococcus aureus CANCER CENTER isolated. Path Review Culture yield may be affecte d by sample quality, prior treatment, and transportation conditions. [facility] ... CANCER CENTER The results have been reviewed and electronically sign ed by Pathologist: Amaury Sinha MD, PhD #[id number] Specimen Nasal Performing Organization Address City/[facility]/ZIP [facility] Phon e Number [facility] CANCER Unless otherwise noted, [address] all lab tests performed by: Division of Pathology and Laboratory Medicine [address] [place] [address] CT Chest Pulmonary Embolism with Contrast (07/08/2021 1:38 PM ELECTRIC WELDER HELPER) Anatomical Region Laterality Modality Chest Computed Tomography Specimen Impressions [id number] - 07/08/2021 2:09 PM ELECTRIC WELDER HELPER There are no pulmonary emboli. There are new findings in the left lower lobe raising the possibility of aspiration/pneumonia. Narrative [id number] - 07/08/2021 2:09 PM ELECTRIC WELDER HELPER FULL RESULT: Examination: CT CHEST PULMONARY EMBOLISM [...] Organization Address City/State/ZIP Code Phon e Number [id number] XR Abdomen AP (07/08/2021 1:31 PM ELECTRIC WELDER HELPER) Anatomical Region Laterality Modality Abdomen Digital Radiography Specimen Impressions [id number] - 07/08/2021 1:34 PM ELECTRIC WELDER HELPER Feeding tube tip overlying the gastric f undus. Recommend further advancement. Narrative [id number] - 07/08/2021 1:34 PM ELECTRIC WELDER HELPER FULL RESULT: Examination: XR ABDOMEN AP on [...] undus. Recommend further advancement. Performing Organization Address City/[facility]/ZIP Code Phon e Number [id number] (ABNORMAL) POC Chem 8 without Hemoglobin and Hematocrit (07/08/2021 12:14 PM ELECTRIC WELDER HELPER) POC NA 131 (L) 138 - 146 [...] patients 18 and older. According to the [facility]'s Kidney Disease Outcome Quality Initiative (KDOQI) classification [...] patients 18 and older. According to the [facility]'s Kidney Disease Outcome Quality Initiative (KDOQI) [...] Clean Dev Yes POC TELCOR Performing Lab [facility]: POC TELCOR [facility] [place] Clinical Lab, [address] [place] [id number]; Marketing Instructor: Loida Chavez MD Specimen Blood Performing Organization Address City/State/ZIP Code Phon e Number POC TELCOR POC Critical (07/08/2021 12:14 PM ELECTRIC WELDER HELPER) Pathologist Sig nature POC Critical Comment See NoteComment: POC TELCOR Test performer notified Ordering Licensed Provider and /or designee of POC Potassium critical Results. Specimen Blood Performing Organization Address City/[facility] Phon e Number POC TELCOR (ABNORMAL) Procalcitonin (07/08/2021 12:13 PM ELECTRIC WELDER HELPER) Procalcitonin 0.15 (H) <=0.08 ng/mL [facility] Comment: CANCER CENTER Procalcitonin > 2.00 ng/mL: [...] with extended dilution as it exceeds the rip saw operator's recommended limit. Caution should be exercised when interpreting such values and done in conjunction with clinical context. Specimen Blood Performing Organization Address [facility] e Number [facility] CANCER Unless otherwise noted, [address] all lab tests performed by: Division of Pathology and Laboratory Medicine [address] [place] (ABNORMAL) Cardiac Panel (07/08/2021 12:13 PM ELECTRIC WELDER HELPER) Pathologist [facility] CK 112 39 - 308 U/L [facility] CK MB 2.4 <=10.4 ng/mL [facility] Troponin T 36 (H) <=18 ng/L [facility] Comment: CAN[facility] CENTER < 19 ng/L Suggest [...] low results. Specimen Blood Performing Organization Address [facility] e Number [facility] CANCER Unless otherwise noted, [address] all lab tests performed by: Division of Pathology and Laboratory Medicine [address] [place] (ABNORMAL) D Dimer (07/08/2021 12:13 PM ELECTRIC WELDER HELPER) Pathologist [facility] D-Dimer 0.77 (H) 0.10 - 0.50 [facility] Comment: mcg/ml FEU [facility] Rechecked and Verified The cut off value for exclusion of venous thromboembol ism is <0.51 mcg/mL FEUs (fibrinogen equivalent units). Specimen Blood Performing Organization Address [facility] e Number [facility] CANCER Unless otherwise noted, [address] all lab tests performed by: Division of Pathology and Laboratory Medicine [address] [place] X-ray Chest 1 View (07/08/2021 11:38 AM ELECTRIC WELDER HELPER) Anatomical Region Laterality Modality Chest Digital Radiography Specimen Impressions [id number] - 07/08/2021 11:41 AM ELECTRIC WELDER HELPER No acute infiltrates are visualized. Narrative [id number] - 07/08/2021 11:41 AM ELECTRIC WELDER HELPER FULL RESULT: Examination: XR CHEST 1 VW, [...] Organization Address City/State/ZIP Code Phon e Number [id number] CT Head without Contrast (07/08/2021 11:05 AM ELECTRIC WELDER HELPER) Anatomical Region Laterality Modality Head Computed Tomography Specimen Impressions [id number] - 07/08/2021 11:37 AM ELECTRIC WELDER HELPER No acute intracranial abnormality. Narrative [id number] - 07/08/2021 11:37 AM ELECTRIC WELDER HELPER FULL RESULT: EXAMINATION: CT HEAD WO CONTRAST [...] The brain parenchyma is un remarkable. The pual-white matter differentiation is maintained. There is no [...] No acute intracranial abnormality. Performing Organization Address [facility] Phon e Number [id number] (ABNORMAL) NT-Pro BNP (In-House) (06/22/2021 11:54 AM ELECTRIC WELDER HELPER) Pathologist Sig nature NT ProBNP 1,199 (H) <=125 pg/mL [facility] Specimen Blood Performing Organization Address [facility] Phon e Number [facility] CANCER Unless otherwise noted, [address] all lab tests performed by: Division of Pathology and Laboratory Medicine [address] [place] CKMB (06/22/2021 11:54 AM ELECTRIC WELDER HELPER) Pathologist Sig nature CK MB 2.6 <=10.4 ng/mL [facility] Specimen Blood Performing Organization Address [facility]/ZIP [facility] Phon e Number [facility] CANCER Unless otherwise noted, [address] all lab tests performed by: Division of Pathology and Laboratory Medicine [address] [place] Creatine Kinase (06/22/2021 11:54 AM ELECTRIC WELDER HELPER) Pathologist Sig nature CK 84 39 - 308 U/L [facility] Specimen Blood Performing Organization Address City/State/ZIP Code Phon e Number [facility] Unless otherwise noted, [place] [address] CENTER all lab tests performed by: Division of Pathology and Laboratory Medicine [address] [facility] [address] Head/Neck Simulation without Contrast (06/21/2021 9:00 AM ELECTRIC WELDER HELPER)Only the most recent of2 resultswithin the time period is included. Anatomical Region Laterality Modality Head, Neck Computed Tomography Specimen Narrative Systemgenerated, Documentation - 022 9:00 AM ELECTRIC WELDER HELPER This procedure requires no interpretatio n from the radiologist. COVID-19 (MAURA-CoV-2) PCR Asymptomatic (05/11/2021 9:05 AM ELECTRIC WELDER HELPER)Only the most recent of2 resultswithin the time period is included. COVID19 SARS Pre-Out of OR [facility] Indication Procedure CANCER CENTER COVID19 SARS Result Not Detected Not Detected [facility] COVID19 SARS SARS-CoV-2 NOT Detected. [facility] Interpretation [facility] [place] Reference Range: Not Detected Methodology: The [employer] Real Time SARS-CoV-2 assay is a qualitative real-time reverse filament maker polymerase chain reaction (innersole fitter-PCR) test to detect RNA from SARS-CoV-2 in nasal, nasopharyngeal and oropharyngeal swabs from patients with signs and symptoms of infection who ar e suspected of COVID-19 by their health care provider. The [employer] RealTime SARS-CoV-2 performed on the [employer]000 System is a dual target assay with [...] high- complexity Molecular Diagnostics Laboratory (MDL) at [facility] under the Food and Drug Administration (FDA) s Emergency Use Authorization. Factsheet for patients: https://www.[facility].org/Abb ottFactSheetPatients Factsheet for healthcare pro viders: https://www.[facility].org/AbbottFactSheetHCP Test performed by: [facility] [address] [place] [address] Specimen Nasopharyngeal Swab Performing Organization Address City/State/[facility] Code Phon e Number [facility] Unless otherwise noted, [place] [address] CENTER all lab tests performed by: Division of Pathology and Laboratory Medicine [address] [place] Orthopantogram (05/06/2021 10:53 AM ELECTRIC WELDER HELPER) Anatomical Region Laterality Modality Other Specimen Narrative Systemgenerated, Documentation - 021 10:53 AM ELECTRIC WELDER HELPER This procedure requires no interpretatio n from the radiologist. FIELD ADMINISTRATIVE ASSISTANT Videostroboscopy (05/06/2021 9:58 AM ELECTRIC WELDER HELPER) Narrative [facility] - 05/06/2021 9:58 AM ELECTRIC WELDER HELPER Sara Harris, PhD 05/06/2021 10:12 AM FIELD ADMINISTRATIVE ASSISTANT Videostroboscopy Laterality (if applicable): right Date/Time: 05/06/2021 9:58 AM Provider Information: Performed by: Sara Harris, PhD Authorized by: OUMAR Staples Indication: Indications for procedure: abnormal symp paulo Abnormal symptom: dysphonia Anesthesia: Local anesthesia used?: local anesthesia used Anesthesia: topical application Local anesthetic: lidocaine spray Sedation: Patient sedated?: patient not sedated Performing Organization Address City/State/[facility] Code Phon e Number [facility] Glucose, Random (05/04/2021 11:10 AM ELECTRIC WELDER HELPER) Glucose Random 136 70 - 199 mg/dL [facility] Comment: CANCER CENTER Effective 12/29/15, the gluco se reference intervals have been updated based on [place] [employer] guidelines (Standards of Medical Care in Diabetes 2016. Diabetes Care 2016; 39: S13-S22). Fasting blood glucose: Normal: 70-99 mg/dL Impaired fasting glucose (in creased risk for diabetes or pre-diabetes): 100- 125 mg/dL Diabetes mellitus: >/=126 mg/dL Random blood glucose: Normal: 70-199 mg/dL Note: Random glucose >100 mg/dL is assoc iated with increased risk for diabetes Specimen Blood Narrative [facility]ENTER - 12:55 PM ELECTRIC WELDER HELPER Not fasting Performing Organization Address City/[facility] Phon e Number [facility] Unless otherwise noted, [address] all lab tests performed by: Division of Pathology and Laboratory Medicine [address] [place] [address] Vitamin D 25OH (05/04/2021 11:10 AM ELECTRIC WELDER HELPER) Pathologist [facility] Vitamin D 25 OH 42 30 - 100 ng/mL [facility] Comment: CANCER CENTER Reference Range: Deficiency: <10 ng/mL Insufficiency: 10-29 ng/mL Sufficiency: 30-100 ng/mL Potential toxicity: >100 ng/mL Specimen Blood Performing Organization Address [facility] Phon e Number [facility] Unless otherwise noted, [address] all lab tests performed by: Division of Pathology and Laboratory Medicine [address] [place] [address] TMP HCV Ab Path Interp (05/03/2021 8:26 AM ELECTRIC WELDER HELPER) Pathologist [facility] HCV Ab Path There is NO serologic evidence of Hepatitis C vi autumn antibody. [facility] Interp Comment: CENTER RUFINO FERNANDEZ, Dictated by: RUFINO FERNANDEZ, Dictated Date/Time: 05.04.20 6:33 AM ELECTRIC WELDER HELPER Transcribed Date/Time: 05.04.2021 6:33 AM ELECTRIC WELDER HELPER Electronically Signed By: RUFINO FERNANDEZ, on 1 07.05.2020 6:33 AM C Specimen Blood Performing Organization Address City/[facility] Phon e Number [facility] [address] [place] [address] Hepatitis C Virus Ab (05/03/2021 8:26 AM ELECTRIC WELDER HELPER) Pathologist [facility] HCVAb. Non Reactive Non Reactive [facility] Comment: CENTER Antibody detection in the im munocompromised and immunosuppressed population may be delayed or absent entirely. Therefore serial testing, correlation with other clinical findings, and supplemental testin g (if available) should be taken into consideration when interpreting the results. Performed at: [facility] [address] [place] [address] Specimen Blood Performing Organization Address City/State/ZIP Code Betsy Maradiaga [facility] [address] [place] [address] POC Creatinine (05/03/2021 6:56 AM ELECTRIC WELDER HELPER) POC Crea 1.2 0.6 - 1.3 POC [...] 18 and older. According to the [facility]'s Kidney Disease Outcome Quality Initiative (KDOQI) [...] 18 and older. According to the National [facility]'s Kidney Disease Outcome Quality Initiative (KDOQI) [...] OP CTRComment: POC [facility] Rad[facility] OP CTR [facility], [address] [place] [id number]; Point of Care Marketing Instructor: Brooke Owens MD Specimen Blood Performing Organization Address City/State/ZIP Code Phon e Number POC [facility] OSI PET CT Skull to Mid Thigh (04/07/2021 1:24 PM CDT) Anatomical Region Laterality Modality Head Other Specimen Narrative Systemgenerated, Documentation - 1:24 PM ELECTRIC WELDER HELPER Study acquired at another institution. For comparison only. No MD Licea originated interpretation requested or a vailable. Pathology Outside Interpretation (03/28/2021) Pathologist Sig nature Materials Received Accession#, Stained, Block, Unstained Collect ed Received [facility] A. [id number], 6 SS, 0 BLOCKS, 0 USS 03/28/2021 Addendum 1 Additional material received on 05/25/2021, Outside 0 SS, 3 BLOCK, 0 USS, collected on 03/28/2021. MD Kinney [facility] Addendum electronically signed Deeper levels of block (21:[id number]) were examined. The original diagnosis remains unchanged. by Rigo Pritchard MD on 06/13/2021 at 2 :17 PM Diagnosis Outside ([id number], 6 SS): [facility] E lectronically signed by Rigo Gallardo Larynx, right arytenoid, biopsy (A): MD Macho on SQUAMOUS CELL CARCINOMA, suspicious for invasion 04/21/2021 at 4:09 PM Larynx, left arytenoid, biopsy (B): Squamous mucosa with chronic inflammation, negative fo r tumor Larynx, left false vocal cord, biopsy (C): Squamous mucosa and minor salivary gland, negative for tumor [facility]/N Technical Stenographer(s) Dr. Marisela Hollingsworth [facility] has reviewed part A and concurs. Biomarker Block(s) T: A [facility] N: C Disclaimer "Some tests reported [facility] here may have been developed and performance characteristics determined by [facility] Pathology and Laboratory Medicine. These tests have not been specifically cleared or approved by the U.S. Food and Drug Administration. If applicable, controls were reviewed and showed appropriate reactivity." Specimen Tissue Performing Organization Address City/State/ZIP Code Phon e Number [facility] [place] [address] [address] [place] OSI Chest (03/24/2021 1:24 PM CDT) Anatomical Region Laterality Modality Chest Other Specimen Narrative Systemgenerated, Documentation - 021 1:24 PM ELECTRIC WELDER HELPER Study acquired at another institution. For comparison only. No [facility] originated interpretation requested or a vailable. after 09/28/2020 Insurance Payer Benefit Plan Subscriber ID Effective Phone Address Typ e / Group Dates MEDICARE MEDICARE PART [id number] 2014-Prese [phone] [facility] Medicare A AND B nt 82 SOLUT[employer] [address] [place] [phone] [employer]UT[employer] OF MUTUAL OF [id number] 2015-Prese [id number] [facility] EVGENY PEPPER [place] [id number] [phone] (Work) Roland Lam Personal/Family Self [address] (Home) [place] [address] Advance Directives Code Status Date Activated Date Inactivated Comments Full Code 08/26/2021 7:24 PM 08/31/2021 6:23 PM Full Code 08/25/2021 9:45 PM 08/26/2021 7:24 PM Full Code 07/08/2021 4:32 PM 07/12/2021 11:02 PM Care Teams Envelope Maker Relationship Specialty Start Date End Date Olivia Coleman DO PCP - External Otolaryngology 04/13/21 [address] [place] [address] Slava Canseco, PCP - General Radiation Oncology 04/25/[address] [place] [id number] Yumi Desir MD Consulting Physician Head and Neck Medical 05/13/[address] [place] [address] [place] [address] Ene Polk MD Consulting Physician Head and Neck Surgery 05/13/[address] [place] [id number] Camilla Davenport, Clinical Dietitian Nutrition 07/19/[address] [place] [address] Anca Maurer, Nurse Practitioner Head and Neck Medical 08/15/21 CERTIFIED PHLEBOTOMY TECHNICIAN Oncology [address] [place] [id number] Michael Lam, Consulting Physician Gastroenterology, 09/05/21 Hepatology and Nutrition [address] [place] [id number] Brady Payan, Consulting Physician Gastroenterology, 09/07/21 Hepatology and Nutrition [address] [place] [id number]
--- OUTSIDE RECORDS SUMMARY | 2021-09-28 14:52 | XMS REPORT | Continuity of Care Document ---
:1950 Author Organization [facility] t Address [address] [place] [address] Care Team Providers Name Role Phone [phone] Primary Care Physician Unavailable SYSTEM, NOT IN Attending Clinician Unavailable Arnaldo Bullard Attending Clinician Unavailable ZANDRA Attending Clinician Unavailable Fermin Attending Clinician Jam CRAWLEY M Attending Clinician Samantha POLK Attending Clinician Unavailable Jordan CCC-VERIFICATION LEAD Attending Clinician Ethel BOWEN, A Attending Clinician Alok Ariza MD Attending Clinician ALOK ARIZA Attending Clinician Unavailable Ruben RAYA Attending Clinician Unavailable Ruben Raya MD Attending Clinician Loy MENDEZ, S Attending Clinician Unavailable Eunice OSEGUERA Attending Clinician EUNICE Attending Clinician Unavailable Kerline Arrington Attending Clinician Gloria BOWENS, M Attending Clinician Alta Latif Attending Clinician Kaci, H Attending Clinician Unavailable Andres CCC-VERIFICATION LEAD, H Attending Clinician Cathleen [facility]-VERIFICATION LEAD, L Attending Clinician Unavailable Erasto FILM PROJECTOR OPERATOR, H Attending Clinician Elza Wylie RN Attending Clinician Unavailable Duran Pardo MD Attending Clinician Elza Ferrell MD Attending Clinician Nirmal Rain MD. Attending Clinician Wendi CRAWLEY Attending Clinician Rajendra Brooks MD Attending Clinician Rachid CRAWLEY Attending Clinician Sienna CRAWLEY Attending Clinician SIENNA Attending Clinician Unavailable Miguel Lam MD. Attending Clinician Callum CCC-VERIFICATION LEAD, M Attending Clinician Unavailable Duran Deras MD. Attending Clinician Delbert MATHUR Attending Clinician Pb TORO Attending Clinician Unavailable Harman BARRIGA Attending Clinician Miguel PEREZ Attending Clinician Unavailable Carina CCC-VERIFICATION LEAD Attending Clinician Miguel Buck Attending Clinician Stephanie CCC-VERIFICATION LEAD, M Attending Clinician Unavailable Miguel Reyes RN. Attending Clinician Unavailable Piero CRAWLEY Attending Clinician GERDA Attending Clinician Unavailable Gerda CRAWLEY Attending Clinician Christina CRWALEY Attending Clinician Maryse Knight MD Attending Clinician Zandra CRAWLEY Attending Clinician WENDI Attending Clinician Unavailable Leobardo BOWENS Attending Clinician Leela BOWENS, S Attending Clinician Unavailable Nancy ANDRÉS K Attending Clinician Thomas Goodrich RN Attending Clinician Unavailable Yajaira BOWENS Attending Clinician Unavailable Marisela Bonilla MD Attending Clinician Francisco BOWENS C Attending Clinician Unavailable PADMINI Attending Clinician Unavailable JEREL Attending Clinician Unavailable Jerel CRAWLEY Attending Clinician Katie BOWENS, B Attending Clinician Unavailable Savannah Polk PharmD Attending Clinician Kathy CCC-VERIFICATION LEAD, E Attending Clinician Katty BOWENS, N Attending Clinician Unavailable Melvina CRAWLEY, S Attending Clinician SHAGUFTA PRUITT Attending Clinician Unavailable Shagufta Pruitt MD Attending Clinician Maine CRAWLEY Attending Clinician MAINE Attending Clinician Unavailable JANAE Attending Clinician Unavailable Galo BOWENS Attending Clinician Unavailable Jacob BOWENS, J Attending Clinician Unavailable Patrick CRAWLEY, Dulce Attending Clinician Song CCC-VERIFICATION LEAD, H Attending Clinician Unavailable Melita OSEGUERA Attending Clinician Denny GARCIA Attending Clinician Unavailable Collin Robles Attending Clinician Unavailable Zahra CRAWLEY PhD, Diana Attending Clinician BRAD Attending Clinician Unavailable MED Attending Clinician Unavailable Med CRUZ Attending Clinician Steven PhD, A Attending Clinician Josse CRAWLEY, Vadim Attending Clinician Darrick RN, A Attending Clinician Mallika Simmons MD Attending Clinician Ezra CRAWLEY, Pb Attending Clinician Dawit CRAWLEY Attending Clinician WENDI Admitting Clinician Unavailable MARYSE KNIGHT Admitting Clinician Unavailable Payers Payer Name Policy Type Policy Number Effective Date Expiration Date S laura MEDICARE PART A [id number] 2014 AND B 00:00:00 LUCIA BETTY PEPPER [id number] 2015 00:00:00 Problems Condition Condition Condition Status Onset Resolution Last Treating Co mments Source Name Details Category Date Date Treatment Clinician Date Melena Melena Disease Active 2021-0 3-25 Jeanmarie 00:00: n 00 Anemia Anemia Disease Active MD 3-24 Anderso 00:00: n 00 Aspiration Aspiration [...] Disease Active 2020-06 nodules of nodules of 2-08 An derso [...] 00:00: n 00 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 [...] 00 Serum Serum Disease Resolve 2021-08-27 2021-08-27 MD creatinine creatinine d 06-08 00:00:00 14:15:51 Anderso [...] Disease Resolve 2020-062021-06-01 2021-06-01 diabetes diabetes d 2 00:00:00 14:19:44 An derso mellitus mellitus 00:00: n in obese in obese 00 Allergies, Adverse Reactions, Alerts Allergy Allergy Status Severity Reaction(s) Onset Inactive Treating Comm ents Source Name Type Date Date Clinician Ultram Adverse Active Info Not [facility] Reaction Available [facility] Outpati ent Clinics Family History Family Member [...] Yes 2{puff} Inhale 2 M D (VENTOLIN 4-22 puffs by Chucky o HFA,PROAIR 11:14: mouth n HFA) 90 20 every 6 mcg/puff (six) inhaler hours as needed. budesonide- Yes 2{puff} Inhale 2 MD formoterol 4-22 puffs by Jorge so (SYMBICORT) 11:14: mouth n 160-4.5 20 twice mcg/actuati daily. [...] Take 20 mg M D (CIALIS) 20 08-29- by mouth. An derso mg tablet 13:49: 00:00 n 25 :00 gabapentin Yes Neuropathic TAKE ONE MD (NEURONTIN) 3-21 pain (1) Anderso 300 mg 00:00: CAPSULE(S) n capsule 00 BY MOUTH THREE TIMES A DAY. HYDROcodone Yes Oral 1{tbl} Take 1-2 MD -acetaminop 3-13 mucositis tablets by Anderso hen ([place]) 00:00: due to mouth n 5 mg-325 [...] Yes Hypophospha 100mg Take 1 MD (VITAMIN 2-09 temia tablet Anderso B-1) 100 mg 00:00: [...] :00 specified twice mg tablet daily. glycopyrrol 0 2021- No Thick 1mg Take 1 MD ate - 02-08 sputum tablet (1 Anderso (RobinuL) 1 00:00: 00:00 mg) by n mg tablet 00 :00 mouth 4 (four) times a day. rosuvastati Yes daily. MD n (CRESTOR) 1- Anderso 40 mg 00:00: n tablet 00 losartan Yes daily. MD (COZAAR) 1- Anderso 100 mg 00:00: n tablet 00 cloNIDine 2021- No Hypertensio .1mg Take 1 MD HCl 06-22 n tablet Anderso (Catapres) 00:00: 00:00 (0.1 mg) n 0.1 mg 00 :00 by mouth 3 tablet (three) times a day as needed for high blood pressure (Systolic blood pressure over 180, diastolic over 110). lidocaine Yes Oral 5mL Swish and MD (XYLOCAINE) 06-15 mucositis swallow 5 Anderso 20 mg/mL 00:00: [...] Apply 2 MD 21 mg/24 hr 1-05 03-03 dependence patch to Anderso transdermal 00:00: 00:00 skin and n patch 00 :00 change patch daily as directed for tobacco cessation (alternate sites). triamcinolo 2020-06 Yes Radiation 1{appli Apply 1 MD ne 2-22 dermatitis cation} applicatio Anderso (KENALOG) 00:00: n n ointment 00 topically 0.1% to affected area(s) twice daily. gabapentin 2020-06- No Neuropathic 300mg Take 1 MD (Neurontin) 2 03-21 pain capsule Arthur rso 300 mg 00:00: 00:00 (300 mg) n capsule 00 :00 by mouth 3 (three) times a day. 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 prochlorper 2020-06 No Primary 10mg Take 1 MD azine [...] twice n 1.1 % 00 daily. [facility] [place] cream teeth with cream and spit out as directed. (Do not eat, drink or rinse for 30 minutes). metFORMIN 2020-06 Yes TAKE ONE MD (GLUCOPHAGE -16 (1) Anderso ) 500 mg 00:00: TABLET(S) n tablet 00 BY MOUTH TWICE A DAY. metoprolol 2020-06- No TAKE ONE MD tartrate -16 02-08 (1) Anderso (LOPRESSOR) 00:00: 00:00 TABLET(S) [...] No TAKE ONE M D (SINGULAIR) 1-04 30 (1) Anderso 10 mg 00:00: 00:00 TABLET(S) [...] TAKE ONE M D (ZOCOR) 10 0-06 06-29 (1) Anderso mg tablet 00:00: 00:00 TABLET(S) n 00 :00 BY MOUTH EVERY EVENING. fenofibrate 2021- No TAKE ONE M D nanocrystal 908-31 (1) Anderso lized 00:00: 00:00 TABLET(S) n (TRICOR) 00 :00 BY MOUTH 145 mg ONCE A tablet DAY. Metformin Metformin Yes Na Bullard [address] [facility] HCl HCl 7-02 with a [facility] - 00:00: meal [facility] 00 [facility] Montelukast Montelukast Yes Na Bullard [address] [facility] Sodium Sodium 4-21 [facility] - 00:[facility]: [facility] 00 [facility] ferrous 2017-0 Yes MD sulfate 3-15 Anderso (iron) 325 00:00: n mg (65 mg 00 elemental iron per tablet) tablet aspirin 81 2009-06 Yes 81mg Take 81 mg M D mg EC 1-22 by mouth. Anderso tablet 00:00: n 00 Cialis Cialis Yes Na Bullard [address] [facility] Metoprolol Metoprolol Yes Na Bullard [address] [facility] Tartrate Tartrate with food [facility] Clinics Dexilant Dexilant Yes Na Bullard TAKE ONE [facility] (1) [facility] - CAPSULE(S) [facility] BY MOUTH l ONCE A Outpati DAY. ent Clinics Plavix Plavix Yes Na Bullard [address] [facility] Plavix Plavix Yes Na Bullard [address] [facility] Ventolin Ventolin Yes Na Bullard [address] [facility] HFA HFA needed [facility] Nicotine Nicotine Yes Na Bullard [address] [facility] Step 1 Step 1 skin [facility] Cetirizine Cetirizine Yes Na Bullard [address] [facility] HCl HCl [facility] Cetirizine Cetirizine Yes Na Bullard TAKE ONE [facility] HCl HCl (1) [facility] - TABLET(S) [facility] BY MOUTH l ONCE A Outpati DAY. ent Clinics Simvastatin Simvastatin Yes Na Bullard [address] [facility] in the [facility] - evening [facility] Nystatin Nystatin Yes Na Bullard [address] [facility] Fenofibrate Fenofibrate Yes Na Bullard [address] [facility] with food [facility] Symbicort Symbicort Yes Na Bullard [address] [facility] Flonase Flonase Yes Na Bullard [address] [facility] each [facility] - nostril [facility] Immunizations Ordered Immunization Filled Immunization Date Status Commen ts Source Name Name Moderna SARS-CoV-2 2021-04-16 Completed MD And erson Booster Vaccination 00:00:00 (50 mcg/0.25 mL) Moderna SARS-CoV-2 2020-08-07 Completed MD And erson Vaccination 00:00:00 Moderna SARS-CoV-2 2020-07-10 Completed MD And erson Vaccination 00:00:00 Vital Signs Vital Name Observation Time Observation Value Comments Source Systolic blood pressure 2021-09-23 16:16:55 122 mm[Hg] MD Dorantes Diastolic blood pressure 2021-09-23 16:16:55 59 mm[Hg] MD Dorantes Heart rate 2021-09-23 16:16:55 77 /min MD Jorge bundy Body temperature 2021-09-23 16:16:55 36.61 Yocasta MD Nirmal larson Respiratory rate 2021-09-23 16:16:55 16 /min MD Nirmal larson Body weight 2021-09-23 16:06:00 62.6 kg MD Jorge bundy BMI 2021-09-23 16:06:00 23.56 kg/m2 MD Jorge bundy Oxygen saturation in 2021-09-21 18:38:00 97 /min MD Dorantes Arterial blood by Pulse oximetry Body height 2021-08-27 02:25:00 163 cm MD Jorge bundy Procedures Procedure Date / Time Performed Performing Clinician Sourc e [place] MODIFIED BARIUM SWALLOW W 2021-09-23 15:46:56 Ene Polk MD SPEECH CT SOFT TISSUE NECK W 2021-09-20 21:26:[address] CHEST W CONTRAST 2021-09-20 21:26:19 Alexandra Dawson MD BLOOD UREA NITROGEN 2021-09-20 16:58:00 Alexandra Dawson MD [facility] SERUM CREATININE 2021-09-20 16:58:00 Alexandra Dawson MD THYROID STIMULATING HORMONE 2021-09-20 16:58:00 Alexandra Dawson MD FREE THYROXINE 2021-09-20 16:58:00 Alexandra Dawson MD SERUM CREATININE 2021-09-20 16:58:00 Alexandra Dawson MD .GLOMERULAR FILTRATION RATE 2021-09-20 16:58:00 Alexandra Dawson MD POC GLUCOSE SCREEN 2021-08-31 15:15:00 Davis El MD on BASIC METABOLIC PANEL, 2021-08-31 09:26:00 HildaoppiLeida cole MD CALCIUM TOTAL MAGNESIUM LEVEL 2021-08-31 09:26:00 Leida Frank MD PHOSPHORUS LEVEL 2021-08-31 09:26:00 ThLeida reaves MD COMPLETE BLOOD COUNT W/ 2021-08-31 09:26:00 Leida Frank MD DIFFERENTIAL GLUCOSE LEVEL 2021-08-31 09:26:00 Leida Frank MD BLOOD UREA NITROGEN 2021-08-31 09:26:00 Thoppil, Leida Hargrove MD Arthur rson ELECTROLYTE PANEL 2021-08-31 09:26:00 ThoppilLeida MD on SERUM CREATININE 2021-08-31 09:26:00 ThoppilLeida MD Andreginaldo amanda .GLOMERULAR FILTRATION RATE 2021-08-31 09:26:00 ThoppiLeida cole MD CALCIUM LEVEL TOTAL 2021-08-31 09:26:00 Thoppil, Leida Hargrove MD Arthur rson Results CBC 2021-08-31 09:26:00 ThoppilLeida MD MANUAL DIFFERENTIAL 2021-08-31 09:26:00 ThoppilLeida MD Arthur rson POC GLUCOSE SCREEN 2021-08-31 03:06:00 Davis El MD on POC GLUCOSE SCREEN 2021-08-30 21:50:00 Davis El MD on FL MODIFIED BARIUM SWALLOW W 2021-08-30 20:15:38 Robert Rashid MD SPEECH POC GLUCOSE SCREEN 2021-08-30 17:35:00 Davis El MD on POC GLUCOSE SCREEN 2021-08-30 12:52:00 Davis El MD on BASIC METABOLIC PANEL, 2021-08-30 09:36:00 ThoppilLeida MD nderson CALCIUM TOTAL MAGNESIUM LEVEL 2021-08-30 09:36:00 ThoppiLeida cole MD PHOSPHORUS LEVEL 2021-08-30 09:36:00 ThoppilLeida MD Andreginaldo n COMPLETE BLOOD COUNT W/ 2021-08-30 09:36:00 ThoppilLeida MD DIFFERENTIAL GLUCOSE LEVEL 2021-08-30 09:36:00 ThoppilLeida MD BLOOD UREA NITROGEN 2021-08-30 09:36:00 ThoppilLeida MD Arthur rson ELECTROLYTE PANEL 2021-08-30 09:36:00 ThoppiLeida cole MD on SERUM CREATININE 2021-08-30 09:36:00 ThLeida reaves MD .GLOMERULAR FILTRATION RATE 2021-08-30 09:36:00 ThLeida reaves MD CALCIUM LEVEL TOTAL 2021-08-30 09:36:00 ThopLeida waddell MD Arthur rson Results CBC 2021-08-30 09:36:00 Leida Frank MD MANUAL DIFFERENTIAL 2021-08-30 09:36:00 ThoppiLeida cole MD Arthur rson POC GLUCOSE SCREEN 2021-08-30 03:07:00 Sienna, Davis Locke on XR ABDOMEN 1 VW PORTABLE 2021-08-29 23:11:44 Sienna, Davis Dorantes POC GLUCOSE SCREEN 2021-08-29 22:46:00 Fortsusan, Davis Locke on POC GLUCOSE SCREEN 2021-08-29 21:32:00 Sienna, Davis Locke on PATHOLOGY BIOPSY 2021-08-29 19:14:00 Michael Lam MD INTERPRETATION DIAGNOSTIC UPPER 2021-08-29 18:46:00 Michael Lam MD GASTROINTESTINAL ENDOSCOPY DIAGNOSTIC FLEXIBLE 2021-08-29 18:46:00 Michael Lam MD Arthur rson COLONOSCOPY PROXIMAL TO SPLENIC FLEXURE POC GLUCOSE SCREEN 2021-08-29 18:22:00 Sienna, Davis Locke on POC GLUCOSE SCREEN 2021-08-29 15:21:00 Sienna, Davis Locke on BASIC METABOLIC PANEL, 2021-08-29 10:31:00 HildaoppiLeida cole MD CALCIUM TOTAL MAGNESIUM LEVEL 2021-08-29 10:31:00 HildaoppiLeida cole MD PHOSPHORUS LEVEL 2021-08-29 10:31:00 Leida Frank MD COMPLETE BLOOD COUNT W/ 2021-08-29 10:31:00 ThoppiLeida cole MD DIFFERENTIAL PROTHROMBIN TIME 2021-08-29 10:31:00 Robert Rashid MD GLUCOSE LEVEL 2021-08-29 10:31:00 ThoppiLeida cole MD BLOOD UREA NITROGEN 2021-08-29 10:31:00 ThoppilLeida MD Arthur rson ELECTROLYTE PANEL 2021-08-29 10:31:00 Leida Frank MD on SERUM CREATININE 2021-08-29 10:31:00 ThoppiLeida cole MD .GLOMERULAR FILTRATION RATE 2021-08-29 10:31:00 Leida Frank MD CALCIUM LEVEL TOTAL 2021-08-29 10:31:00 HildaoppiLeida cole MD Arthur rson Results CBC 2021-08-29 10:31:00 HildaoppilLeida MD MANUAL DIFFERENTIAL 2021-08-29 10:31:00 HildaoppilLeida MD Arthur rson POC GLUCOSE SCREEN 2021-08-29 02:15:00 Robert Rashid MD on POC GLUCOSE SCREEN 2021-08-28 21:24:00 Robert Rashid MD Chucky on POC GLUCOSE SCREEN 2021-08-28 13:49:00 Robert Rashid MD on PHOSPHORUS LEVEL 2021-08-28 08:13:00 ThoppilLeida MD Andreginaldo amanda COMPLETE BLOOD COUNT W/ 2021-08-28 08:13:00 ThoppilLeida MD DIFFERENTIAL GLUCOSE LEVEL 2021-08-28 08:13:00 WilipiLeida cole MD BLOOD UREA NITROGEN 2021-08-28 08:13:00 ThoppilLeida MD Arthur rson ELECTROLYTE PANEL 2021-08-28 08:13:00 ThoppiLeida cole MD on SERUM CREATININE 2021-08-28 08:13:00 ThoppiLeida cole MD Andadele n .GLOMERULAR FILTRATION RATE 2021-08-28 08:13:00 ThoppiLeida cole MD CALCIUM LEVEL TOTAL 2021-08-28 08:13:00 HildaoppiLeida cole MD Arthur rson Results CBC 2021-08-28 08:13:00 Leida Frank MD MANUAL DIFFERENTIAL 2021-08-28 08:13:00 Leida Frank MD rson BASIC METABOLIC PANEL, 2021-08-28 08:13:00 Leida Frank MD nderson CALCIUM TOTAL MAGNESIUM LEVEL 2021-08-28 08:13:00 Leida Frank MD POC GLUCOSE SCREEN 2021-08-28 03:20:00 Robert Rashid MD on POC GLUCOSE SCREEN 2021-08-27 18:30:00 Robert Rashid MD on POC GLUCOSE SCREEN 2021-08-27 13:47:00 Robert Rashid MD on BASIC METABOLIC PANEL, 2021-08-27 09:47:00 ThoppiLeida cole MDrsdeya CALCIUM TOTAL MAGNESIUM LEVEL 2021-08-27 09:47:00 ThopLeida waddell MD PHOSPHORUS LEVEL 2021-08-27 09:47:00 Thoppil, Leida Lockeo n COMPLETE BLOOD COUNT W/ 2021-08-27 09:47:00 HildaopLeida waddell MD DIFFERENTIAL GLUCOSE LEVEL 2021-08-27 09:47:00 Susan Tadeo MD And erson BLOOD UREA NITROGEN 2021-08-27 09:47:00 Susan Tadeo MD ELECTROLYTE PANEL 2021-08-27 09:47:00 Susan Tadeo MD nderson SERUM CREATININE 2021-08-27 09:47:00 Susan Tadeo MD derson .GLOMERULAR FILTRATION RATE 2021-08-27 09:47:00 Susan Tadeo [...] GLUCOSE SCREEN 2021-08-26 13:44:00 Olegario Rain MD SERUM CREATININE 2021-08-26 13:10:00 Susan Tadeo MD .GLOMERULAR FILTRATION RATE 2021-08-26 13:10:00 Susan Tadeo MD CALCIUM LEVEL TOTAL 2021-08-26 13:10:00 Susan Tadeo MD Results CBC 2021-08-26 13:10:00 Susan Tadeo MD And naz MANUAL DIFFERENTIAL 2021-08-26 13:10:00 Susan Tadeo MD BASIC METABOLIC PANEL, 2021-08-26 13:10:00 HildaoppilLeida MD CALCIUM TOTAL MAGNESIUM LEVEL 2021-08-26 13:10:00 WilipiLeida cole MD PHOSPHORUS LEVEL 2021-08-26 13:10:00 ThoppilLeida MD n COMPLETE BLOOD COUNT W/ 2021-08-26 13:10:00 ThoppilLeida MD DIFFERENTIAL GLUCOSE LEVEL 2021-08-26 13:10:00 Susan Tadeo MD And naz BLOOD UREA NITROGEN 2021-08-26 13:10:00 Susan Tadeo MD ELECTROLYTE PANEL 2021-08-26 13:10:00 Susan Tadeo MD TRANSFUSE RED BLOOD CELLS 2021-08-26 09:17:00 Susan Tadeo MD TRANSFUSE RED BLOOD CELLS 2021-08-26 05:58:00 Susan Tadeo MD POC GLUCOSE SCREEN 2021-08-26 04:03:00 Olegario Rain MD CONFIRM ABORH TYPE 2021-08-25 23:19:00 Hilario Pardo MD Chucky on COVID-19 (SARS-COV-2) 2021-08-25 23:15:00 Bossman Castillo MD And erson ASYMPTOMATIC-LT TYPE AND SCREEN 2021-08-25 23:15:00 Bossman [...] NITROGEN 2021-08-25 23:15:00 Bossman Castillo MD Jorge gregor ANTIBODY SCREEN 2021-08-25 23:15:00 Bossman Castillo MD ELECTROLYTE PANEL 2021-08-25 23:15:00 Bossman Castillo MD SERUM CREATININE 2021-08-25 23:15:00 Bossman Castillo MD .GLOMERULAR FILTRATION RATE 2021-08-25 23:15:00 Bossman Castillo MD CALCIUM LEVEL TOTAL 2021-08-25 23:15:00 Bossman Castillo MD [facility] ALBUMIN LEVEL 2021-08-25 23:15:00 Bossman Castillo MD ALKALINE PHOSPHATASE 2021-08-25 23:15:00 Bossman Castillo MD rsdeya ALANINE AMINOTRANSFERASE 2021-08-25 23:15:00 Bossman Castillo MD ASPARTATE AMINOTRANSFERASE 2021-08-25 23:15:00 Bossman Castillo TOTAL PROTEIN 2021-08-25 23:15:00 Bossman Castillo MD FRACTIONATED BILIRUBIN 2021-08-25 23:15:00 Bossman Castillo MD derson CLOT EXPIRATION DATE 2021-08-25 23:15:00 Bossman Castillo MD rsdeya TMP INTERPRETATION ANTIBODY 2021-08-25 23:15:00 Bossman Castillo MD SCREEN NEGATIVE TMP CROSSMATCH INTERPRETATION 2021-08-25 23:15:00 Bossman Castillo MD PREPARE RBC 2021-08-25 21:47:00 Susan Tadeo MD And naz PRBC PRODUCT READY FOR PICK 2021-08-25 21:47:00 Bossman Castillo MD UP COMPLETE BLOOD COUNT W/ 2021-08-25 17:41:49 Davina Perez MD DIFFERENTIAL Results CBC 2021-08-25 17:41:49 Davina Perez MD Andadele patel MANUAL DIFFERENTIAL 2021-08-25 17:41:49 Davina Perez MD And erson XR CHEST 2 VW 2021-08-25 16:17:44 ErastoWilsonnirmal patel FLEXIBLE NASOPHARYNGEAL 2021-08-22 15:38:27 Rebecca Brown MD [...] rson Ino SERUM CREATININE 2021-07-12 21:09:00 MD Zandra Jorge son Ino .GLOMERULAR FILTRATION RATE 2021-07-12 21:09:00 MD Jose E Mart Ino CALCIUM LEVEL TOTAL 2021-07-12 21:09:00 MD Yue De Paz Ino POC GLUCOSE SCREEN 2021-07-12 19:45:00 Lacy Mancia MD on POC GLUCOSE SCREEN 2021-07-12 15:40:00 [...] Paz ELECTROLYTE PANEL 2021-07-12 07:56:00 MD Zandra Arthurruben matamoros Ino SERUM CREATININE 2021-07-12 07:56:00 MD Jorge De Paz .GLOMERULAR FILTRATION RATE 2021-07-12 07:56:00 MD Jose E Mart CALCIUM LEVEL TOTAL 2021-07-12 07:56:00 MD Yue De Paz Ino Results CBC 2021-07-12 07:56:00 Madelin Knight MD Maryse MANUAL DIFFERENTIAL 2021-07-12 07:56:00 Madelin Knight MD POC GLUCOSE SCREEN 2021-07-12 04:09:00 Lacy Mancia [...] And erson GLUCOSE LEVEL 2021-07-11 20:33:00 MD Chucky De Paz on Ino BLOOD UREA NITROGEN 2021-07-11 20:33:00 MD Yue De Paz ELECTROLYTE PANEL 2021-07-11 20:33:00 MD Zandra Arthur rson Ino SERUM CREATININE 2021-07-11 20:33:00 MD Jorge De Paz .GLOMERULAR FILTRATION RATE 2021-07-11 20:33:00 MD Jose E Mart CALCIUM LEVEL TOTAL 2021-07-11 20:33:00 MD Yue De Paz POC GLUCOSE SCREEN 2021-07-11 18:33:00 Lacy Mancia MD on POC GLUCOSE SCREEN 2021-07-11 14:52:00 Lacy Mancia MD Chucky on BASIC METABOLIC PANEL, 2021-07-11 08:00:00 Kwaku [...] DIFFERENTIAL 2021-07-11 07:46:00 Madelin Knight MD Arthur rson Maryse POC GLUCOSE SCREEN 2021-07-11 03:45:00 MD Zandra And naz Ino POC GLUCOSE SCREEN 2021-07-11 01:36:00 MD Zandra And naz Mckinnon EKG, 12-LEAD (PORTABLE) 2021-07-11 00:00:00 Kwaku Yo MD POC GLUCOSE SCREEN 2021-07-10 22:26:00 MD Zandra And naz Mckinnon BASIC METABOLIC PANEL, 2021-07-10 21:02:00 Kwaku Yo MD CALCIUM TOTAL MAGNESIUM LEVEL 2021-07-10 21:02:00 Kwaku Yo MD Arthur rson PHOSPHORUS LEVEL 2021-07-10 21:02:00 Kwaku Yo MD And erson GLUCOSE LEVEL 2021-07-10 21:02:00 MD Zandra Chuckyreginald Mckinnon BLOOD UREA NITROGEN 2021-07-10 21:02:00 MD Zandra An juan Mckinnon ELECTROLYTE PANEL 2021-07-10 21:02:00 MD Zandra Arthur rsdeya Ino SERUM CREATININE 2021-07-10 21:02:00 MD Jorge eD Paz .GLOMERULAR FILTRATION RATE 2021-07-10 21:02:00 MD Jose E Mart CALCIUM LEVEL TOTAL 2021-07-10 21:02:00 MD Zandra An juan Mckinnon POC GLUCOSE SCREEN 2021-07-10 17:40:00 MD Zandra And naz Mckinnon COMPLETE BLOOD COUNT W/ 2021-07-10 12:09:00 Madelin [...] MANUAL DIFFERENTIAL 2021-07-10 12:09:00 Madelin Knight MD Arthur shiloh Maryse POC GLUCOSE SCREEN 2021-07-10 05:11:00 MD [...] 2021-07-09 21:00:36 MD Jose E De Paz Ino BASIC METABOLIC PANEL, 2021-07-09 19:45:00 Kwaku Yo MD CALCIUM TOTAL MAGNESIUM LEVEL 2021-07-09 19:45:00 Kwaku Yo MD Arthur rson PHOSPHORUS LEVEL 2021-07-09 19:45:00 Kwaku Yo MD And erson GLUCOSE LEVEL 2021-07-09 19:45:00 MD Zandra Chucky on Ino BLOOD UREA NITROGEN 2021-07-09 19:45:00 MD Yue De Paz ELECTROLYTE PANEL 2021-07-09 19:45:00 MD Zandra Arthur rson Ino SERUM CREATININE 2021-07-09 19:45:00 MD Zandra Jorge son Ino .GLOMERULAR FILTRATION RATE 2021-07-09 19:45:00 MD Jose E Mart CALCIUM LEVEL TOTAL 2021-07-09 19:45:00 MD Yue De Paz OSCILLATORY PEP 2021-07-09 19:21:45 MD Zandra Chucky on Ino POC GLUCOSE SCREEN 2021-07-09 18:42:00 MD Zandra And erson Ino POC GLUCOSE SCREEN 2021-07-09 14:56:00 MD Zandra And erson Ino TROPONIN T 2021-07-09 12:28:00 Kaushal Proctor MD BASIC METABOLIC PANEL, 2021-07-09 12:28:00 Madelin Knight MD nderson CALCIUM TOTAL Maryse COMPLETE BLOOD COUNT W/ 2021-07-09 12:28:00 Madelin Knight MD DIFFERENTIAL Maryse MAGNESIUM LEVEL 2021-07-09 12:28:00 Madelin Knight MD PHOSPHORUS LEVEL 2021-07-09 12:28:00 Madelin Knight MDo amanda Serra GLUCOSE LEVEL 2021-07-09 12:28:00 Madelin Knight MD BLOOD UREA NITROGEN 2021-07-09 12:28:00 Madelin Knight MD rsdeya Serra ELECTROLYTE PANEL 2021-07-09 12:28:00 Madelin Knight MD SERUM CREATININE 2021-07-09 12:28:00 Madelin Knight MD .GLOMERULAR FILTRATION RATE 2021-07-09 12:28:00 Madelin Knight MD CALCIUM LEVEL TOTAL 2021-07-09 12:28:00 Madelin Knight MD Arthur rson Maryse Results CBC 2021-07-09 12:28:00 Madelin Knight MD MANUAL DIFFERENTIAL 2021-07-09 12:28:00 Madelin Knight MD rson Maryse POC GLUCOSE SCREEN 2021-07-09 04:08:00 [...] TEST MRSA SCREENING CULTURE 2021-07-08 21:23:[address] CHEST PULMONARY EMBOLISM W 2021-07-08 19:38:55 Donny Rain MD CONTRAST XR ABDOMEN AP 2021-07-08 19:31:37 Josette Vasquez MD POC CHEM 8 2021-07-08 18:14:00 Josette Vasquez MD POC CRITICAL 2021-07-08 18:14:00 Josette Vasquez MD COMPLETE BLOOD COUNT W/ 2021-07-08 18:13:00 Rain, Olegario Dorantes DIFFERENTIAL COMPREHENSIVE METABOLIC PANEL 2021-07-08 18:13:00 Koffi, Donny Dorantes MAGNESIUM LEVEL 2021-07-08 18:13:00 Rain, Olegario Gamez MD Arthur rson PHOSPHORUS LEVEL 2021-07-08 18:13:00 Rain, Olegario Gamez MD And erson PROTHROMBIN TIME 2021-07-08 18:13:00 Koffi, Olegario Gamez MD And erson APTT 2021-07-08 18:13:00 Rain, Olegario Gamez MD Arthur rson D DIMER 2021-07-08 18:13:00 Rain, Olegario Gamez MD Arthur rson CARDIAC PANEL 2021-07-08 18:13:00 Rain, Olegario Gamez MD Arthur rson Results CBC 2021-07-08 18:13:00 Koffi, Olegario Gamez MD Arthur rson MANUAL DIFFERENTIAL 2021-07-08 18:13:00 Koffi, Olegario Dorantes GLUCOSE LEVEL 2021-07-08 18:13:00 Rain, Olegario Gamez MD Arthur rson BLOOD UREA NITROGEN 2021-07-08 18:13:00 Olegario Rain MD ELECTROLYTE PANEL 2021-07-08 18:13:00 Rain, Olegario hallson SERUM CREATININE 2021-07-08 18:13:00 Koffi, [...] UREA NITROGEN 2021-07-04 17:10:00 Yumi Lorenz MD ELECTROLYTE PANEL 2021-07-04 17:10:00 Yumi Lorenz MD [...] MD FRACTIONATED BILIRUBIN 2021-07-04 17:10:00 Yumi Lorenz MDson Results CBC 2021-07-04 17:10:00 Yumi Lorenz MD MANUAL DIFFERENTIAL 2021-07-04 17:10:00 Yumi Lorenz MD COMPREHENSIVE METABOLIC PANEL 2021-06-27 14:00:00 Yumi Lorenz MD COMPLETE BLOOD COUNT W/ 2021-06-27 14:00:00 Yumi Lorenz MD nderson DIFFERENTIAL MAGNESIUM LEVEL 2021-06-27 14:00:00 Yumi Lorenz [...] TROPONIN T 2021-06-22 21:45:00 Nichole Beltrán MD Andadele n COVID-19 (SARS-COV-2) 2021-06-22 17:54:00 Susan Ugalde MD ASYMPTOMATIC-LT COMPLETE BLOOD COUNT W/ 2021-06-22 17:54:00 Susan Ugalde MD DIFFERENTIAL COMPREHENSIVE METABOLIC PANEL 2021-06-22 17:54:00 Susan Ugalde MD MAGNESIUM LEVEL 2021-06-22 17:54:00 Susan Ugalde MDson PHOSPHORUS LEVEL 2021-06-22 17:54:00 Susan Ugalde MD NT PRO BNP 2021-06-22 17:54:00 Susan Ugalde [...] MD TOTAL PROTEIN 2021-06-22 17:54:00 Susan Ugalde MDson FRACTIONATED BILIRUBIN 2021-06-22 17:54:00 Susan Ugalde MD [...] Lorenz MD ELECTROLYTE PANEL 2021-06-20 14:07:00 Yumi Lorenz MD SERUM CREATININE 2021-06-20 14:07:00 Yumi Lorenz MD .GLOMERULAR FILTRATION RATE 2021-06-20 14:07:00 Yumi Lorenz MD CALCIUM LEVEL TOTAL 2021-06-20 14:07:00 Yumi Lorenz MD Jorgedebbie bundy ALBUMIN LEVEL 2021-06-20 14:07:00 Yumi Lorenz MD ALKALINE PHOSPHATASE 2021-06-20 14:07:00 Yumi Lorenz MD rson ALANINE AMINOTRANSFERASE 2021-06-20 14:07:00 Yumi Lorenz MD ASPARTATE AMINOTRANSFERASE 2021-06-20 14:07:00 Yumi Lorenz TOTAL PROTEIN 2021-06-20 14:07:00 Yumi Lorenz MD FRACTIONATED BILIRUBIN 2021-06-20 14:07:00 Yumi Lorenz MDson Results CBC 2021-06-20 14:07:00 Yumi Lorenz MD MANUAL DIFFERENTIAL 2021-06-20 14:07:00 Yumi Lorenz MD Jorgedebbie bundy COMPREHENSIVE METABOLIC PANEL 2021-06-13 13:00:00 Yumi Lorenz [...] Yumi Lorenz MD ALKALINE PHOSPHATASE 2021-06-13 13:00:00 uYmi Lorenz MD rsdeya ALANINE AMINOTRANSFERASE 2021-06-13 13:00:00 Yumi Lorenz MD ASPARTATE AMINOTRANSFERASE 2021-06-13 13:00:00 Yumi Lorenz TOTAL PROTEIN 2021-06-13 13:00:00 Yumi Lorenz MD FRACTIONATED BILIRUBIN 2021-06-13 13:00:00 Yumi Lorenz MD derson Results CBC 2021-06-13 13:00:00 Yumi Lorenz MD MANUAL DIFFERENTIAL 2021-06-13 13:00:00 Yumi Lorenz MD COMPREHENSIVE METABOLIC PANEL 2021-06-06 12:58:00 Yumi Lorenz MD COMPLETE BLOOD COUNT W/ 2021-06-06 12:58:00 Yumi Lorenz MD DIFFERENTIAL MAGNESIUM LEVEL 2021-06-06 12:58:00 Yumi Lorenz MD PHOSPHORUS LEVEL 2021-06-06 12:58:00 Yumi Lorenz MD GLUCOSE LEVEL 2021-06-06 12:58:00 Yumi Lorenz MD BLOOD UREA NITROGEN 2021-06-06 12:58:00 Yumi Lorenz MD Jorgedebbie bundy ELECTROLYTE PANEL 2021-06-06 12:58:00 Yumi Lorenz MD SERUM CREATININE 2021-06-06 12:58:00 Yumi Lorenz MD .GLOMERULAR FILTRATION RATE 2021-06-06 12:58:00 Yumi Lorenz MD CALCIUM LEVEL TOTAL 2021-06-06 12:58:00 Yumi Lorenz MD Jorge gregor ALBUMIN LEVEL 2021-06-06 12:58:00 Yumi Lorenz MD ALKALINE PHOSPHATASE 2021-06-06 12:58:00 Yumi Lorenz MD rsdeya ALANINE AMINOTRANSFERASE 2021-06-06 12:58:00 Yumi Lorenz MD ASPARTATE AMINOTRANSFERASE 2021-06-06 12:58:00 Yumi Lorenz TOTAL PROTEIN 2021-06-06 12:58:00 Yumi Lorenz MD FRACTIONATED BILIRUBIN 2021-06-06 12:58:00 Yumi Lorenz MD derson Results CBC 2021-06-06 12:58:00 Yumi Lorenz MD MANUAL DIFFERENTIAL 2021-06-06 12:58:00 Yumi Lorenz MD Jorge gregor COMPREHENSIVE METABOLIC PANEL 2021-05-30 14:28:00 Yumi Lorenz MD COMPLETE BLOOD COUNT W/ 2021-05-30 14:28:00 Yumi Lorenz MD nderson DIFFERENTIAL MAGNESIUM LEVEL 2021-05-30 14:28:00 Yumi Lorenz MD PHOSPHORUS LEVEL 2021-05-30 14:28:00 Yumi Lorenz MD GLUCOSE LEVEL 2021-05-30 14:28:00 Yumi Lorenz MD BLOOD UREA NITROGEN 2021-05-30 14:28:00 Yumi Lorenz MD Jorge gregor ELECTROLYTE PANEL 2021-05-30 14:28:00 Yumi Lorenz MD SERUM CREATININE 2021-05-30 14:28:00 Yumi Lorenz [...] ELECTROLYTE PANEL 2021-05-23 14:42:00 Yumi Lorenz MD n SERUM CREATININE 2021-05-23 14:42:00 Yumi Lorenz MD .GLOMERULAR FILTRATION RATE 2021-05-23 14:42:00 Yumi Lorenz MD CALCIUM LEVEL TOTAL 2021-05-23 14:42:00 Yumi Lorenz MD Jorgedebbie bundy ALBUMIN LEVEL 2021-05-23 14:42:00 Yumi Lorenz MD ALKALINE PHOSPHATASE 2021-05-23 14:42:00 Yumi Lorenz MD rsdyea ALANINE AMINOTRANSFERASE 2021-05-23 14:42:00 Yumi Lorenz MD ASPARTATE AMINOTRANSFERASE 2021-05-23 14:42:00 Yumi Lorenz TOTAL PROTEIN 2021-05-23 14:42:00 Yumi Lorenz MD FRACTIONATED BILIRUBIN 2021-05-23 14:42:00 Yumi Lorenz MDson Results CBC 2021-05-23 14:42:00 Yumi Lorenz MD MANUAL DIFFERENTIAL 2021-05-23 14:42:00 Yumi Lorenz MD FL MODIFIED BARIUM SWALLOW W 2021-05-18 15:57:01 Alexandra Dawson MD SPEECH CT HEAD/NECK SIMULATION WO 2021-05-11 16:46:32 Alexandra Dawson CONTRAST (RO) COVID-19 (SARS-COV-2) PCR 2021-05-11 15:05:00 Alexandra Dawson MD ASYMPTOMATIC ORTHOPANTOGRAM 2021-05-06 16:53:13 Dixie Loaiza MD Fierro VERIFICATION LEAD 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 2021-05-06 15:58:10 Alexandra Dawson MD ELECTROLYTE [...] FRACTIONATED BILIRUBIN 2021-05-04 17:10:00 Yumi Lorenz MD, MD-19 (SARS-COV-2) PCR 2021-05-04 16:23:00 Ene Polk MD ASYMPTOMATIC COMPLETE BLOOD COUNT W/ 2021-05-03 14:26:00 Alexandra Dawson MDrsdeya DIFFERENTIAL COMPREHENSIVE METABOLIC PANEL 2021-05-03 14:26:00 Alexandra Dawson MD THYROID STIMULATING HORMONE 2021-05-03 14:26:00 Alexandra Dawson MD HEPATITIS C VIRUS ANTIBODY 2021-05-03 14:26:00 Alexandra Dawson FREE THYROXINE 2021-05-03 14:26:00 Alexandra Dawson MD Results CBC 2021-05-03 14:26:00 Alexandra Dawson MD MANUAL DIFFERENTIAL 2021-05-03 14:26:00 Alexandra Dawson MD Jorge gregor GLUCOSE LEVEL 2021-05-03 14:26:00 Alexandra Dawson MD BLOOD UREA NITROGEN 2021-05-03 14:26:00 Alexandra Dawson MD Jorge [facility] ELECTROLYTE PANEL 2021-05-03 14:26:00 Alexandra Dawson MD SERUM CREATININE 2021-05-03 14:26:00 Alexandra Dawson MD .GLOMERULAR FILTRATION RATE 2021-05-03 14:26:00 Alexandra Dawson MD CALCIUM LEVEL TOTAL 2021-05-03 14:26:00 Alexandra Dawsno MD Jorge [facility] ALBUMIN LEVEL 2021-05-03 14:26:00 Alexandra Dawson MD ALKALINE PHOSPHATASE 2021-05-03 14:26:00 Alexandra Dawson MD ALANINE AMINOTRANSFERASE 2021-05-03 14:26:00 Alexandra Dawson MD ASPARTATE AMINOTRANSFERASE 2021-05-03 14:26:00 Alexandra Dawson TOTAL PROTEIN 2021-05-03 14:26:00 Alexandra Dawson MD FRACTIONATED BILIRUBIN 2021-05-03 14:26:00 Alexandra Dawson MDson TMP HCVAB INTERP 2021-05-03 14:26:[address] SOFT TISSUE NECK W 2021-05-03 13:27:[address] CHEST W CONTRAST 2021-05-03 13:27:54 Alexandra Dawson MD Jorge gregor POC CREATININE 2021-05-03 12:56:00 Alexandra Dawson MD [...] Date/Time Type Type Clinicians Facility Department ID 2021-09-21 Outpatient SYSTEM, LOLITA MCHUGH [id number] 11:18:24 PROVIDER Chucky patel 2021-09-20 Outpatient Bullard, Na STLML[facility] ST[facility]C [id number] [facility] 09:33:02 [id number] [facility] 2021-09-19 Outpatient Bullard, Na [facility]LMLC ST[facility]C [id number] [facility] [address] 16:18:04 [id number] [facility] 2021-07-09 Inpatient DOROTHY PHAMAndrade- LOLITA MCHUGH [id number] 15:00:36 Jeanmarie ASKEW 2021-06-29 Outpatient Bullard, Na [facility] [id number] [facility] [address] 11:54:04 [id number] [facility] 2021-06-29 Outpatient Bullard, Na STLMLC STLMLC [id number] [facility] [address] 11:30:38 [id number] [facility] 2021-06-29 Outpatient Bullard, Na [facility]LMLC STL[facility]C [id number] [facility] [address] 11:28:27 [id number] [facility] 2021-06-29 Outpatient Bullard, Na [facility]LMLC STL[facility]C [id number] [facility] [address] 11:24:06 [id number] [facility] 2021-04-13 Outpatient SYSTEM, LOLITA MCHUGH [id number] 19:44:15 CASSANDRA patel 2021-09-23 2021-09-23 Outpatient DOROTHY POLK MDA MDA [id number] 11:00:00 23:59:00 ENE patel 2021-09-23 2021-09-23 Outpatient DOROTHY POLK, MDA MDA [id number] 10:00:00 10:59:00 ENE patel 2021-09-21 2021-09-21 Outpatient DARYL LAU MDA MDA [id number] 12:58:44 23:59:00 Chucky patel 2021-09-21 2021-09-21 Outpatient NKECHI ROGERS MDA MDA [id number] MD 14:34:29 16:07:25 Chucky patel 2021-09-20 2021-09-20 Outpatient DARYL LAU MDA MDA [id number] 13:05:31 23:59:00 Chucky patel 2021-09-20 2021-09-20 Outpatient DOROTHY DAWSON, MDA MDA [id number] 12:55:00 13:04:00 ALEXANDRA patel 2021-09-20 2021-09-20 Outpatient DARYL LAU MDA MDA [id number] 11:00:00 12:01:00 Chucky patel 2021-09-20 2021-09-20 Outpatient DOROTHY DAWSON, MDA MDA [id number] 10:45:00 10:59:00 ALEXANDRA patel 2021-09-19 2021-09-19 ambulatory [facility] [id number] [facility]00 [facility] 2021-09-07 2021-09-07 Outpatient DARYL LAU MDA MDA [id number] 14:30:45 14:30:45 Chucky patel 2021-09-07 2021-09-07 Outpatient DARYL LAU MDA MDA [id number] 12:16:23 12:16:23 Chucky o amanda 2021-09-06 2021-09-06 Outpatient DOROTHY DAWSON, MDA MDA [id number] 14:15:00 23:59:00 ALEXANDRA patel 2021-09-06 2021-09-06 ambulatory [facility] [id number] [facility] 2021-09-05 2021-09-05 Outpatient DARYL LAU MDA MDA [id number] 10:24:00 10:24:00 Chucky o n 2021-08-25 2021-08-31 Inpatient TANNER EL, MDA Hosp [facility] [id number] 17:50:00 16:18:00 DAVIS Locke o n 2021-08-31 2021-08-31 Inpatient DARYL LAU MDA MDA [id number] 14:19:25 14:19:27 Chucky o n 2021-08-29 2021-08-29 Inpatient DARYL LAU MDA MDA [id number] 10:07:53 10:07:55 Chucky o n 2021-08-26 2021-08-26 Outpatient DOROTHY TORO, MDA MDA [id number] 00:20:55 00:34:46 SUSAN Locke o n 2021-08-25 2021-08-25 Outpatient DOROTHY PEREZ, MDA MDA [id number] 12:28:34 12:35:55 DAVINA Patel so amanda 2021-08-25 2021-08-25 Outpatient DARYL LAU MDA MDA [id number] 10:54:44 10:54:44 Chucky o n 2021-08-22 2021-08-22 Outpatient DOROTHY DAWSON, MDA MDA [id number] 09:00:00 23:59:00 ALEXANDRA Locke o amanda 2021-08-20 2021-08-20 Outpatient DOROTHY DAWSON MDA MDA [id number] 14:40:16 14:50:18 ALEXANDRA Locke o amanda 2021-08-17 2021-08-17 Outpatient DARYL LAU MDA MDA [id number] 13:23:18 13:23:18 Chucky o amanda 2021-08-02 2021-08-02 Outpatient DARYL LAU MDA MDA [id number] 09:02:07 09:02:07 Chucky o n 2021-07-19 2021-07-19 Outpatient DARYL LAU MDA MDA [id number] 15:33:56 15:33:56 Chucky o n 2021-07-19 2021-07-19 ambulatory [facility] [id number] [facility] 2021-07-18 2021-07-18 Outpatient DARYL LAU MDA MDA [id number] 15:31:07 15:31:07 Chucky o n 2021-07-13 2021-07-13 Outpatient DOROTHY LORENZ MDA MDA [id number] 13:44:18 13:44:18 YUMI Chucky o n 2021-07-08 2021-07-12 Inpatient UR WENDI, MDA Hosp Med [id number] MD 10:33:00 21:00:00 LACY Chucky o n 2021-07-09 2021-07-09 Inpatient DOROTHY HOBBS- MDA MDA [id number] 14:37:39 15:13:17 Chucky ASKEW 2021-07-08 2021-07-08 Outpatient DARYL LAU MDA MDA [id number] 09:19:33 10:32:00 Chucky o amanda 2021-07-08 2021-07-08 Outpatient DARYL LAU MDA MDA [id number] 08:15:00 09:18:00 Chucky o amanda 2021-07-07 2021-07-07 Outpatient DARYL LAU MDA MDA [id number] 20:19:41 23:59:00 Chucky o amanda 2021-07-07 2021-07-07 Outpatient DARYL LAU MDA MDA [id number] 10:00:00 20:18:00 Chucky o n 2021-07-07 2021-07-07 Outpatient DARYL LAU MDA MDA [id number] 09:45:00 09:59:00 Chucky o n 2021-07-06 2021-07-06 Outpatient DARYL LAU MDA MDA [id number] 11:21:54 23:59:00 Chucky o n 2021-07-06 2021-07-06 Outpatient DARYL LAU MDA MDA [id number] 13:41:27 22:23:25 Chucky o n 2021-07-06 2021-07-06 Outpatient DOROTHY DAWSON MDA MDA [id number] 15:25:17 15:25:17 ALEXANDRA patel 2021-07-06 2021-07-06 Outpatient DARYL LAU MDA MDA [id number] 13:22:42 14:24:35 Chucky patel 2021-07-06 2021-07-06 Outpatient DARYL LAU MDA MDA [id number] 09:27:40 11:20:00 Chucky patel 2021-07-06 2021-07-06 Outpatient DARYL LAU MDA MDA [id number] 08:45:00 09:26:00 Chucky aptel 2021-07-05 2021-07-05 Outpatient DARYL LAU MDA MDA [id number] 09:07:24 23:59:00 Chucky patel 2021-07-04 2021-07-04 Outpatient DOROTHY LORENZ, MDA MDA [id number] MD 12:15:00 23:59:00 YUMI patel 2021-07-04 2021-07-04 Outpatient DARYL LAU MDA MDA [id number] 09:23:55 12:14:00 Chucky patel 2021-07-04 2021-07-04 Outpatient DOROTHY LORENZ, MDA MDA [id number] MD 09:15:00 09:22:00 YUMI patel 2021-07-01 2021-07-01 Outpatient DARYL LAU MDA MDA [id number] 09:26:55 23:59:00 Chucky patel 2021-07-01 2021-07-01 Outpatient DOROTHY DAWSON, MDA MDA [id number] 09:26:30 23:59:00 ALEXANDRA patel 2021-06-30 2021-06-30 Outpatient DARYL LAU MDA MDA [id number] 10:12:14 23:59:00 Chucky o amanda 2021-06-29 2021-06-29 Outpatient DARYL LAU MDA MDA [id number] 09:21:07 23:59:00 Chucky o amanda 2021-06-29 2021-06-29 Outpatient DARYL LAU MDA MDA [id number] MD 16:04:56 16:04:56 Chucky o amanda 2021-06-29 2021-06-29 Outpatient DOROTHY LORENZ MDA MDA [id number] 12:39:09 12:39:09 YUMI Locke o amanda 2021-06-29 2021-06-29 Outpatient DARYL LAU MDA MDA [id number] 09:20:50 09:20:50 Chucky o amanda 2021-06-28 2021-06-28 Outpatient DARYL LAU MDA MDA [id number] 13:24:55 23:59:00 Chucky o n 2021-06-27 2021-06-27 Outpatient DARYL LAU MDA MDA [id number] 08:51:26 23:59:00 Chucky o amanda 2021-06-27 2021-06-27 Outpatient DOROTHY LORENZ MDA MDA [id number] 10:10:27 10:10:27 YUMI Locke o amanda 2021-06-27 2021-06-27 Outpatient DOROTHY LORENZ MDA MDA [id number] 07:30:00 08:50:00 YUMI oLcke o amanda 2021-06-24 2021-06-24 Outpatient DARYL LAU MDA MDA [id number] 12:42:26 23:59:00 Chucky o amanda 2021-06-24 2021-06-24 Outpatient DARYL LAU MDA MDA [id number] 10:45:00 12:41:00 Chucky o amanda 2021-06-24 2021-06-24 Outpatient [facility] [id number] [place] [address] 00:00:00 00:00:[address] 2021-06-23 2021-06-23 Outpatient DARYL LAU MDA MDA [id number] 10:41:38 23:59:00 Chucky o amanda 2021-06-23 2021-06-23 Outpatient DARYL LAU MDA MDA [id number] 10:30:12 10:40:00 Chucky o amanda 2021-06-22 2021-06-22 Emergency ER JEREL, MDA Emergency [id number] MD 11:11:00 20:15:00 NICHOLE Scanloners o amanda 2021-06-22 2021-06-22 Outpatient DARYL LAU MDA MDA [id number] 09:50:00 11:10:00 Chucky nic patel 2021-06-21 2021-06-21 Outpatient DARYL LAU MDA MDA [id number] 08:00:52 23:59:00 Chucky patel 2021-06-21 2021-06-21 Outpatient DOROTHY DAWSON, MDA MDA [id number] MD 07:58:46 07:59:00 ALEXANDRA patel 2021-06-20 2021-06-20 Outpatient DOROTHY LORENZ, MDA MDA [id number] 08:14:09 23:59:00 YUMI patel 2021-06-20 2021-06-20 Outpatient DOROTHY LORENZ, MDA MDA [id number] 07:58:43 08:13:00 YUMI patel 2021-06-17 2021-06-17 Outpatient DARYL LAU MDA MDA [id number] 11:45:00 23:59:00 Chucky o amanda 2021-06-16 2021-06-16 Outpatient DARYL LAU MDA MDA [id number] 11:42:10 23:59:00 Chucky o amanda 2021-06-16 2021-06-16 Outpatient DARYL LAU MDA MDA [id number] 16:11:01 16:11:01 Chucky o amanda 2021-06-15 2021-06-15 Outpatient DOROTHY POLK, MDA MDA [id number] MD 10:37:55 23:59:00 ENE Locke o amanda 2021-06-15 2021-06-15 Outpatient DARYL LAU MDA MDA [id number] 11:27:15 14:11:36 Chucky o amanda 2021-06-15 2021-06-15 Outpatient DARYL LAU MDA MDA [id number] 08:16:55 10:36:00 Chucky o amanda 2021-06-15 2021-06-15 Outpatient DARYL LAU MDA MDA [id number] 07:19:30 08:15:00 Chucky o amanda 2021-06-14 2021-06-14 Outpatient DARYL LAU MDA MDA [id number] 20:31:13 23:59:00 Chucky o amanda 2021-06-14 2021-06-14 Outpatient DARYL LAU MDA MDA [id number] 08:01:28 20:30:00 Chucky o amanda 2021-06-13 2021-06-13 Outpatient DOROTHY LORENZ MDA MDA [id number] 09:15:00 23:59:00 YUMI patel 2021-06-13 2021-06-13 Outpatient DARYL LAU MDA MDA [id number] 08:20:58 09:14:00 Chucky o amanda 2021-06-13 2021-06-13 Outpatient DARYL LAU MDA MDA [id number] 08:08:42 08:19:00 Chucky o amanda 2021-06-13 2021-06-13 Outpatient DOROTHY LORENZ MDA MDA [id number] 06:30:00 08:07:00 YUMI patel 2021-06-10 2021-06-10 Outpatient DARYL LAU MDA MDA [id number] 09:48:20 23:59:00 Chucky o amanda 2021-06-09 2021-06-09 Outpatient DARYL LAU MDA MDA [id number] 08:15:00 23:59:00 Chucky o amanda 2021-06-08 2021-06-08 Outpatient DARYL LAU MDA MDA [id number] 20:55:35 23:59:00 Chucky o amanda 2021-06-08 2021-06-08 Outpatient DARYL LAU MDA MDA [id number] 13:28:31 20:54:00 Chucky o amanda 2021-06-08 2021-06-08 Outpatient DARYL LAU MDA MDA [id number] 16:41:38 16:41:38 Chucky o amanda 2021-06-08 2021-06-08 Outpatient DOROTHY DAWSON, MDA MDA [id number] MD 10:37:41 13:27:00 ALEXANDRA patel 2021-06-08 2021-06-08 Outpatient DOROTHY LORENZ, MDA MDA [id number] 09:30:54 09:30:54 YUMI Locke o amanda 2021-06-07 2021-06-07 Outpatient DARYL LAU MDA MDA [id number] 11:48:52 23:59:00 Chucky o amanda 2021-06-06 2021-06-06 Outpatient DARYL LAU MDA MDA [id number] 13:38:56 23:59:00 Chucky o amanda 2021-06-06 2021-06-06 Outpatient DOROTHY LORENZ, MDA MDA [id number] 07:00:00 13:37:00 YUMI Locke o amanda 2021-06-06 2021-06-06 Outpatient DOROTHY LORENZ, MDA MDA [id number] MD 06:30:00 06:59:00 YUMI Locke o amanda 2021-06-02 2021-06-02 Outpatient DARYL LAU MDA MDA [id number] 06:16:14 23:59:00 Chucky o amanda 2021-06-01 2021-06-01 Outpatient DOROTHY PRUITT MARIA DEL ROSARIO MDA MDA [id number] 10:37:44 23:59:00 Chucky o amanda 2021-06-01 2021-06-01 Outpatient DOROTHY RESTREPO, MDA MDA [id number] 13:15:31 14:00:28 CLINT Locke o amanda 2021-06-01 2021-06-01 Outpatient DARYL LAU MDA MDA [id number] 06:18:07 10:36:00 Chucky o amanda 2021-05-31 2021-05-31 Outpatient DARYL LAU MDA MDA [id number] 14:02:11 23:59:00 Chucky o amanda 2021-05-31 2021-05-31 Outpatient DARYL LAU MDA MDA [id number] 09:00:07 20:53:44 Chucky o amanda 2021-05-31 2021-05-31 Outpatient DOROTHY CARDOSO, MDA MDA [id number] MD 15:31:35 15:31:35 ANNA Locke o amanda 2021-05-31 2021-05-31 Outpatient DARYL LAU MDA MDA [id number] 05:46:59 14:01:00 Chucky o amanda 2021-05-30 2021-05-30 Outpatient DARYL LAU MDA MDA [id number] 06:55:13 23:59:00 Chucky nic patel 2021-05-30 2021-05-30 Outpatient DOROTHY LORENZ MDA MDA [id number] 11:10:48 11:10:48 YUMI patel 2021-05-30 2021-05-30 Outpatient DOROTHY LORENZ MDA MDA [id number] 06:15:00 06:54:00 YUMI patel 2021-05-25 2021-05-25 Outpatient DARYL LAU MDA MDA [id number] 08:51:12 23:59:00 Chucky nic patel 2021-05-25 2021-05-25 Outpatient DOROTHY LORENZ MDA MDA [id number] 10:29:47 11:57:52 YUMI patel 2021-05-25 2021-05-25 Outpatient DARYL LAU MDA MDA [id number] 08:22:09 08:50:00 Chucky inc patel 2021-05-24 2021-05-24 Outpatient DARYL LAU MDA MDA [id number] 14:48:05 23:59:00 Chucky nic patel 2021-05-23 2021-05-23 Outpatient DARYL LAU MDA MDA [id number] 15:22:13 23:59:00 Chucky nic patel 2021-05-23 2021-05-23 Outpatient DOROTHY LORENZ MDA MDA [id number] 08:29:28 15:21:00 YUMI patel 2021-05-23 2021-05-23 Outpatient DOROTHY LORENZ MDA MDA [id number] 08:49:56 14:05:15 YUMI patel 2021-05-23 2021-05-23 Outpatient DARYL LAU MDA MDA [id number] 06:28:35 08:28:00 Chucky o amanda 2021-05-22 2021-05-22 Outpatient DARLY LAU MDA MDA [id number] 14:50:33 23:59:00 Chucky o amanda 2021-05-19 2021-05-19 Outpatient DARYL LAU MDA MDA [id number] 11:03:15 13:40:55 Chucky o amanda 2021-05-18 2021-05-18 Outpatient DOROTHY DAWSON, MDA MDA [id number] 09:16:35 23:59:00 ALEXANDRA patel 2021-05-18 2021-05-18 Outpatient DARYL LAU MDA MDA [id number] 15:19:23 15:19:23 Chucky o amanda 2021-05-16 2021-05-16 Outpatient DARYL LAU MDA MDA [id number] 08:30:00 23:59:00 Chucky o amanda 2021-05-11 2021-05-11 Outpatient DARYL LAU MDA MDA [id number] MD 12:11:49 23:59:00 Chucky o amanda 2021-05-11 2021-05-11 Outpatient DOROTHY LORENZ, MDA MDA [id number] 13:49:12 16:28:29 YUMI Locke o amanda 2021-05-11 2021-05-11 Outpatient DOROTHY DAWSON, MDA MDA [id number] MD 08:59:55 15:39:22 ALEXANDRA patel 2021-05-11 2021-05-11 Outpatient DOROTHY DAWSON, MDA MDA [id number] 10:00:00 12:10:00 ALEXANDRA patel 2021-05-11 2021-05-11 Outpatient DOROTHY DAWSON, MDA MDA [id number] 09:15:00 09:59:00 ALEXANDRA Locke o amanda 2021-05-09 2021-05-09 Outpatient DOROTHY SALINAS, MDA MDA [id number] 11:38:34 11:38:34 LEONID Scanloners o amanda 2021-05-09 2021-05-09 Outpatient DARYL LAU MDA MDA [id number] 11:38:24 11:38:24 Chucky o amanda 2021-05-06 2021-05-06 Outpatient DOROTHY AHUMADA, MDA MDA [id number] 10:53:13 23:59:00 ARIANE Scanloners o amanda 2021-05-06 2021-05-06 Outpatient DOROTHY AHUMADA, MDA MDA [id number] 10:44:38 10:52:00 ARIANE Scanloners o amanda 2021-05-06 2021-05-06 Outpatient DOROTHY DAWSON, MDA MDA [id number] MD 08:30:00 10:43:00 ALEXANDRA patel 2021-05-06 2021-05-06 Outpatient DOROTHY POLK, MDA MDA [id number] MD 07:45:03 08:29:00 ENE patel 2021-05-04 2021-05-04 Outpatient DARYL LAU MDA MDA [id number] MD 10:40:00 23:59:00 Chucky patel 2021-05-04 2021-05-04 Outpatient DOROTHY DAWSON, MDA MDA [id number] MD 10:16:12 12:58:49 ALEXANDRA patel 2021-05-04 2021-05-04 Outpatient DOROTHY LORENZ, MDA MDA [id number] MD 09:45:00 10:39:00 YUMI patel 2021-05-03 2021-05-03 Outpatient DOROTHY DAWSON, MDA MDA [id number] MD 08:06:41 23:59:00 ALEXANDRA patel 2021-05-03 2021-05-03 Outpatient DOROTHY DAWSON, MDA MDA [id number] MD 06:25:36 06:25:36 ALEXANDRA patel 2021-05-02 2021-05-02 Outpatient EL MDA MDA [id number] MD 13:03:47 13:06:58 Chucky patel 2021-04-22 2021-04-22 Outpatient EL MDA MDA [id number] MD 11:48:16 11:48:16 Chucky o amanda 2021-04-22 2021-04-22 Outpatient EL MDA MDA [id number] MD 11:48:13 11:48:13 Chucky o amanda 2021-04-22 2021-04-22 Outpatient EL MDA MDA [id number] MD 11:48:12 11:48:12 Chucky o amanda 2021-04-22 2021-04-22 Outpatient EL MDA MDA [id number] MD 11:48:10 11:48:10 Chucky o amanda 2021-04-22 2021-04-22 Outpatient EL MDA MDA [id number] MD 11:48:08 11:48:08 Chucky o amanda 2021-04-22 2021-04-22 Outpatient EL MDA MDA [id number] MD 11:48:06 11:48:06 Chucky o n 2021-03-18 2021-03-18 Outpatient [facility] [id number] 2021-02-15 2021-02-15 Outpatient [facility] [id number] 2021-01-11 2021-01-11 Outpatient [facility] [id number] 2020-10-26 2020-10-26 Outpatient [facility] [id number] [address] [place] [address] 00:00:00 00:00:00 PAT [facility] 2020-04-07 2020-04-07 Outpatient [facility] [id number] 2020-03-15 2020-03-15 Out[facility] [id number] 2020-02-11 2020-02-11 [facility] [id number] 09:19:00 09:19:00 t Specialty/[facility] l Clinic Outpati ent Clinics 2019-12-23 2019-12-23 [facility] [id number] 13:20:00 13:20:00 t Relaborate s - Drive [facility] l Medicine Outpati ent Clinics 2019-12-12 2019-12-12 [facility] [id number] 11:00:00 11:00:00 t Relaborate s - Drive [facility] Medicine l Medicine Outpati ent Clinics 2019-12-04 2019-12-04 [facility] [id number] 08:44:00 08:44:00 t Relaborate s - Drive [facility] l Medicine Outpati ent Clinics 2019-11-21 2019-11-21 [facility] [id number] 16:47:00 16:47:00 t Specialty/U My[facility] - Specialty rology [facility] /[facility] ent Clinics 2019-11-14 2019-11-14 Outpatient Chayo Del Real [id number] 08:00:00 08:00:00 t [email or web address] s - Drive [facility] ent [facility] 2019-11-13 2019-11-13 Outpatient Chayo Del Real [id number] 14:40:00 14:40:00 t [place] Patient [facility] Monitoring [employer] s - Drive [facility] 2019-10-24 2019-10-24 [facility] [id number] [address] [place] 00:00:00 00:00:00 PAT [address] 2019-10-22 2019-10-22 Outpatient Chayo Del Real [id number] 14:12:00 14:12:00 t Specialty/U Myah k[facility] 2019-10-14 2019-10-14 Outpatient [facility]MINI [facility] [id number] [address] [place] 00:00:00 00:00:00 PAT [address] Results Test Description Test Time Test Comments Results Result Comments Source Glomerular Filtration Rate 2021-09-20 18:28:20 Test Item Value Reference Range Interpretation Comme nts eGFR-AA (test code = 89 See_Comment Normal eGFR: >= 60 59270-6) mL/min/1.73 m2N ote: The eGFR is calculated [...] GFR >=902 Mildly decrease d GFR 60-893a Mildly to moderately decr eased GFR 45-593b Moderat deborah to severely decrea sed GFR 30-444 Severely decreased GFR 15-295 Kidney failure < 15 [Automated mess age] The system which CR2 nerated this result transmit mary reference range: >=60 mL/ min/1.73 sq. m. The referenc e range was not used to int erpret this result as shavon l/abnormal. eGFR-JOSELITO (test code 77 See_Comment Normal e GFR: >= 60 = 42398-8) mL/min/1.73 m2N ote: The eGFR is calculated [...] GFR >=902 Mildly decrease d GFR 60-893a Mildly to moderately decr eased GFR 45-593b Moderat deborah to severely decrea sed GFR 30-444 Severely decreased GFR 15-295 Kidney failure < 15 [Automated mess age] The system which CR2 nerated this result transmit mary reference range: >=60 mL/ min/1.73 sq. m. The referenc e range was not used to int erpret this result as shavon l/abnormal. PEDRO LUIS (test code = Pls schedule PEDRO LUIS) videostrobe prior to MD sagrario Dorantes.Serum Oehaexzgwd9604-93-56 18:28:19 Test Item Value Reference Range Interpretation Comments Creatinine (test code 0.98 mg/dL 0.67-1.17 = 2160-0) PEDRO LUIS (test code = PEDRO LUIS) Pls schedule videostrobe prior to MD sagrario [id number] 18:28:18 Test Item Value Reference Range Interpretation Comments BUN (test code = 3094-0) 35 mg/dL 6-23 H PEDRO LUIS (test code = PEDRO LUIS) Pls schedule videostrobe prior to MD zabala Lab Interpretation (test Abnormal code = 63525-3) MD Dor[id number] 18:28:17 Test Item Value Reference Range Interpretation Comments TSH (test code 3.11 See_Comment [Automated m essage] = 27242-4) The system [employer] generated this result transmit mary reference range : 0.27 - 4.20 mcunit/mL. The reference range was not used to interpret this result as normal/abnormal . PEDRO LUIS (test code Pls schedule = PEDRO LUIS) videostrobe prior to MD appts MD DorantesFree [id number] 18:28:16 Test Item Value Reference Range Interpretation Comments T4 Free (test code 1.40 ng/dL 0.93-1.70 = 3024-7) PEDRO LUIS (test code = Pls schedule videostrobe PEDRO LUIS) prior to MD appts [facility] Fpvyeqtmrzlgzl7368-68-97 21:40:26 Test Item Value Reference Range Interpretation Comments Submitted Clinical History b3hsgTKyEZNwh6kpBZM (test code = 19822) mbGFuZzEwMzNcZnRuYm pcdWMxIHtccnRmMVxzc 3EkE7LpSdLySPeduvPx XGRlZmxhbmcxMDMzXGZ 0bmJqXHVjMVxkZWZmMH syYi2xuCHxiTfpYdXoT YBcf4uljqNIsptvfLh0 l5zrHRXzCwM1hBXtURj nR8nfsuInzQOtPMRzXB o3mX75BLFliL2cnFTtG PchirBpVuQ2XVjkFSKn BcR7VEGlbVPsPOMlD2n yZWQwXGdyZWVuMFxibH WrDXS9aCior1B7nKRnq GVldHtcZjBcZnMyMiBO f7WoICj9xQolP6BwPYI lToI9pTBqJHNpFKwfFD CuJTWejmM2aM50XKlkl rD7gKXtn1Yow05ty257 gS6qeDVpZBE8EXRjIUO ddELuYYVtHEJ1SDTysH UuV2gsSULlUG4ntqxuG IfoSPcjDDMpzUZ3VCPd aMInX8DeDSVeSMkhSPK gpup0RhDjIw4vrIKlkP fvEMgcr2zvo3attKBjS by1ZXNuVpTjIpdjFYnr z4Yvc5djEUVoaa2qEZD 1oWAduMpre2Q5vJRyUI HltZUfmvNxKSOaYyU2J NmnCG9pna51JGOmFCC7 gs1puOHzwBzoezRkgVO rFAqoB1KmGCTpx154NJ KeV7BePEVjh4R9jgAzA fSsUBWaaNY5ksL7ZRCb GQz6zPDjvpR9rqXihAP uZ6rwdR5zJIDiXY5vor swp2mjQEfgLFnvVGBwo TZ4cdX4XSVscSLtD3Rm nB5fYINeIVrdGLObqda 9TwQmHm0qiHHhaUgfTQ xzYmtwYWdlXHBnbmNvb nRccGduZGVjXHBsYWlu XHBsYWluXGYwXGZzMjR xdYwhcUumsI8cJoFsYg ZmALjgTY6aXKFzC9hzr JHgTRSxADIhN3egWiMl wX8poMcaRQpkxaZcZSh sz07dCBAncYYkGN1vhQ PfxdQxuJJhZJ0rpNEgv Vneadsqy7Kmc4BaS5mj pOBqFObJCWWtTS2liUw gaZ3qBgRcKwAaWbiaKM 3lAGPmE8xcxMBgDUJpI VYmY6uuNrSjaK9csVnf BTgavzSgZQExoo31 Diagnosis (test code = 34) n8zmoQTzJGAlhTL2HrV xNREha3mty6RiuTWxsL OsDIxvvVFffvQfie05y FI9aL62QT6aGDIlOuQ7 TJSdsgU8Uwv3DFJnSGL tcUIxL193m4yzn9fwju IcmDD7GRZiNHUhT3WjU X9aNBUwcCRqA24fuCMo WKG5SADbPSWbdZSwKVK pTCJ8HJToeSSiW0ehVI GqCD2jtvjtGUyvRIkmU URvtKG4VTAqsZUvM7Ur LZWwMPysCQLeytm9GhH pTy5flWUkgEneXRduGL JkXHBsYWluXGZzMjBcY 1RpIVC1RHO9z1FptiAr BVUguY7xe6x7QVMahct xoWixYDrxbV13HjEfW5 QsGLQ2m2GvyvOkUW02E 70pIYS2fXLwGH9bXZFu NFchg4K1pCYjEUKhq1I tYWxpdHkuXHBhclxsaT FlyYoeYOhnTRYgO0PnF FM1NQF6t35qT0buLVtk v3TqkHUrFU45sbZtJDJ jpV3si3n8KAUkhlrtzV hsVMpjmL39ThRaC2XzI EFudHJhbCBhbmQgdHJh djLncRifuiMrWU01K80 sNDD0jVKrGSEjICL2uZ GoNYumz6Vkn7EadDg5D undTDVjBw6jEOmkHBRf aWNvYmFjdGVyIFxpMCB vcmdhbmlzbXNcaSAgXG eqVJqQCnIir1JzhK3mQ K1nAFsthFMpvJdfWUix tYF6KOFxUROgQHIoRHK udGlmaWVkLlxwYXJcbG kwXGxpbjBccGFyXGNmM QSYWwSDrX3cEEAvVCCc YPB0xncuHUWfEKzxzz4 wpRvrmlo6sAwiOvzzjL Q6HafaSOUkvWj5OnMaq DzfKaHwHCZcPXUTtD8p gAYsA8yucxOegD6tvYC uXHBhclxsaTBcbGluMF vlPFBeE3CeUSJ1UGLai X5xXDEvKUQlbHyzFVPf NBw1kdSrLTpfl0EeuOa vcyL7IH6fJNAuo6GweI AqyG2zdGSjLAVrn3Wcx TpccGFyXGxpNzIwXGxp bjcyMFxjZjAgVHVidWx lgmJxUTZfp01sXqgsBQ JccGFyZFxwYXJ9 Gross Description (test t6evuDIvIOTfjHDIXMq code = 7539214793) wMVxhbnNpXHNwbHRwZ3 UnviinXCcrXE1hPS5ft ViaoLRuiHNwGV9OOJCp ZmYxXHBhcGVydzEyMjQ uKUOirGDfbVP6UHSuKS 1hcmdsMTgwMFxtYXJnc bC8QJSxlWZoZ9IaVKSf UZ6vgdgkQXF6YZjicC3 auvTVAgmhPb0jxPJwbL tcZjFcZmNoYXJzZXQwX FDgpHfcJRCsGIy9kK2L FrowC37of7K3Nsg4HXX xTWNfI7QeCF5tJKKouX SzQ03BUjhpHEG6ICRDW atwWQVcAJ6Vj3atQLVh xRZzAYT8ZOcrtRUoNEY fXNJkZLj4YHVpNNorzN BuVP7jjNqcNsutwAfhd 2VjdCBcXGlkIDUxMDAy OIxtYAAaDY7SAfMwAZG iUPHkNVkqBZv9RNf4JI 0DCpLaDXLlSXZ3IDK2W WOjRHt4LFdiFW6DMUPx YVX8JWgvPSNnQUAbHiZ bUAy3YEZzKZekUDLjnI FsIFxcZnMgMTAgXFxmY sYbRNXbWVzqgyK5QPSg YWluXGJcZnMyMCBBOlx xBXLcVJggeObmsP2rWI JwG30lj7XIp4UsZL4PJ Of4qyTixvoscH5yGWDg bjMkCRktiYNoY9vxRbq oXlFoCwJrXPAIrW2iSH 45tPujSULrHPHmkS28G PIhVSTbLWRmBgGwe3A0 WVUbktS0dGCdzKFjHfY eC24tpeMrQMHxLySmL9 1dDNVpRjJ3UOXjCADqg nRpcmVseSBzdWJtaXR0 ZRHanZ6kFDQoVGBpnVE idQLnoKcnZdthjHD1IJ puTfwhbK6moZFQXUNWQ wwOAfgchbNuME0JCG6P HxXWPL51ZnLdTHB3GNu DK7ZWvIV5Itv6KWz0mQ tcZmxkcnNsdCBcJzFDf D8RWOkwFivdeDX3CHys KdtoaV6gtONAUJCUMsr MKkwoqjTgSR7JUK6TFT 5EzEYkZYZ1gIW7KLCDA mqhtOH1cAA5qR19PELk RTGijKUjWHwdU824KKO zZZhfQZa9tfGdJLOmNs OtAYmkALFbC86hc8QOd 9TvHGXwk9jomEkag6Qn dGVuZFxwYXJccGFyZFx pfF0fGpUoe8betFa8VK vdimX7CPQwwo5niHfqe S0vWCe1LRbjOVEhM1Zd C9NiGJgcASF2CUSkAfR cXGRiICBPVlIgIiBDMz anAAM7CsX2DTy1GCEKC eQxDhFeLZSfOTT4GbGi ARy2CHb1KJkTOfAxHCO vGXB5Eyz7JSN8PfG5UA xcdCAyIFxcZiBBcmlhb CBcXGZzIDEwIFxcZmIg TFvarSWbTI0mpHsjlHK pblxiXGZzMjAgQjpccG YuNW3HAAWsOBkdYHWar UBYPLG5PF2hYVMWDnot dHJwYXJcbGluMFxyaW4 iAN4NGMa8cgVpTFZbC6 BdTCBrTkBfY3IqcEEdy JilO3GlfTQiPqMydjRg kS21YTOhBBNxUKPgADR ahZhtmUKfh41toNR3EP 6axPmrk0IuVEWfAXjrA B20ouxpJN52AJtyID59 ILkaGR0xAZOcWZkrYVY mI0SuF5O1QCkmHX93xV YwyPtop1YfsLr5bXXqS DhqCZNoWjNiZZCha5Sq H1N2KKGrZUmfd5apLFJ jDCskg3HvEMvDKNSSZX 5NCV7zpZJ6DNwGS1HIK 8lOpTItLLG8sHH5JIQA BagjePC9jAD8zA69VAR wWYOdgUUyZNbdB925YM B4CVRaGFlco9ctSZZoP Mazy5QcTMjNROODDM1T GP5vvEE7OLtMC5AWYZi xBPPaKebzcPISACG9WH hskErosEd9t2foqAHjo 7t9HTxyHVY7oAqlaPCb blxsdHJjaFxmczIwIA0 HZDQdzTSGPDM6SA1pMX l7QTebZVGqW7PeY6Bbk fTdyLDuONWmvhJng6pf PUG5DKLylDXnwTGaSjG zNiyyKZR2VLItLSltAK 8Ea0hmZPSexSHfWXD1M FxcaWQgNTEwMDIgXFxk KsMvR7QADPBmZwA0QAE lYKHvIHn5PAczU0IUCZ AtINW6WDWfFGXhPgR0S Kv6LUZWZi5vTZRqRBre JEJ3BhI6GKPfNPDtIYJ gMiBcXGYgQXJpYWwgXF xmcyAxMCBcXGZiIFxcZ ibuRCwgD99nlFpqxE4f JxnxliOqWXT7MYWmiaH NClxwbGFpblxlcGljTm VzdERvYzEgDQpcbHRyc GFyXGxpbjBccmluMCAN ClxsdHJjaFxiXGNmMVx vilXgVGH5g65qF7qmOS zkz4VqhRAqRu7noCSsi 7L3lPDayXO2SozvRBsy VpHhVI42xPGjjAzpVDN vDuIvdKWeNDDzz8O0JD BmcmFnbWVudHMsIDAuN gN6GVXjLQP0WBWpGwDo vLNnwuIwF3jlXNsaxNW yRWShjOasBVe3IRR4Ej 9clFJgPCEjozMMRL0tT Kjkot95SGE8r9yarIYf GKtiEohhgHQeuiX9PTc OGNLNDYrDEfErTS4kLR xJTktCRUdJTnwyMTAxN dcinSGKOYQ2DXjdwDji bCc7z6qawNIim2p8XRu sKYF8xVTPm4xacAObUP jsWnyrsEUcxsY5CLwXT HGIORsJIbYfWL5aZYoX OusABeH5BeMqZCL0QJj LB6TWuRN5Aao9JFy7hS tcZmxkcnNsdCBcJzFDf G8yoOmflW1edOBzF6oa ZnMyMCANClxlcGljTmV mpKBcSnGxcsM6KXSohB NzWUY3SP9eVAWkgoqnB WDwWHOsGRG5NKihdW32 bHQwXGZzMTZccGFyfVx wbGFpbiANCntcKlxlcG jma1XaiHSqXRpyNHHsX GFtMEjdVHAmLV5CAxWg XNJyOOHvORxfNXs6TQg 1IS1KQaHuZRFuTVW0SW B6JpLoWDh4WUinRF9WO WGcFVB3EvMbFOOpPMTl KkTiNXy2OXUbMZvxVZH yaWFsIFxcZnMgMTAgXF oaZhSeFWTqMAtarhH0K HBsYWluXGJcZnMyMCBE OlxwYXIgDQpccGxhaW5 fKPMhG56rb5CNr3HdJB 5HZNn4mcWawvpilX9zK JKslzUxEGiggRBnP8zz RgmuTrPoEmUsLCFHp6y vbiwgaGVwYXRpYyBmbG Q1cBFpFUgmh9BchPbvp iA2PO7dDLMwl1CzlTTx nV0chPD9IFMrFSEzCBC rQXArl2N2WKIvraN3yH GmvNUoUwOsT21riyXqT EMhJFQanUqxBN33oAFc jPqxt2AgtJr4zSMgWIi uPAXjMbDyLOWrz2ImF6 H6PMFfVQjnq8gdTCYdW Rsnk4ZlFJeQWBEZZF4Z HF7wkHN2IIqRK7KTI2c EsBAmHCA1hMN8ZTUYPp qpzOE1iRH1cG09ALBmK VJudGZeSInpE629WJI0 HLEiEVwrm1aiXVHrRCn xh3AiDRsWJVTQRQ4QMF 8mgVV6AHbJW4ZYBTdvW YWsHgzzeEMSVAM2PWoz wNdzxXv6c6ymeMJjf7p 0SUwlZBO4iSxlnNCpga lxaYObtDqggvXnCE5WD LRvxJROIQW0EL4dHPg8 JMrqSGHvY5NdJ6NhrsO nkXPcSPWtxrAwy0tuNY I8AZAumHFuqXTwXaPrQ jabMKG9CPPsCWisWP7I EUUvSBQ8EJdgjI55iFL mRL4FFGOdHPpzINYaAG TsidY0WRNgmGXeSKH1E Z4ahKehfWCfjpqxwyN5 IA0KfQ== Disclaimer (test code = i5nlaMJhNPKjeKJjOyK 9844) aXFPaDWHwm5oxULNduL FuZzEwMzNcZnRuYmpcd JWqJMKaLkGza6bgb737 xVQcf7bdWHKnHxK1kGJ rHFArrVOjJ418IILxYN xmm9jez2RtZIEjjNGzn 7S5ZTVVlikpqZa4nZth V33rs5A1GhvnX1cwPTC lADNbD8MwQO6fQXSuOr b3NBF1LAO0SNHsLUWcL 5QsQV9uGKLrtAQxJTl0 q0hsuEweFAShHUB6a9e lAAnbrpEwEX3vwc2tgF d3p8mystHoXHDhGOSbo QLIOAYwM4OfiWdaSs8r yQs6hGsgPwjgBAF3Neu 0LG4lbb24hhp2wAwxAL BdmwyuDkC6RWbePCHuk wvxGZu5ZGnqIKUpwSX7 JKOceBOrZ4TzUHXkMK3 offt1OQH4SWywWSUlXl C3PSLwuCWsLFMsjYnvF Luht928GHM3HjZtUE9q M2Iem4D1vK3klOWnBOA auVYoUbLeBUEfee3scS JkTPbnl5NeYVX7qdF7x NOhkHJuTIKwQB91Rean r6UqXshcKIW8ZBDbmzQ ok3Xwx9hvTbHfubJnW8 spB4SiFRKtDRKeDURiV qIrbbVkx3Pep2FdyVIr mZr9z4lfUJYaENCkzGd ua6jvRYN8RXHlB6Z2bE Ooq3ttIYlmQITewFU6h cS5ZXRwzQJcT6NewC5b HFTaNF0ahvx8q7ofUHD 4FDhoCUUhGhK2ksO4NL BcaGVhZGVyeTcyMFxmb 382BRP0SaGoNBJwz8Dz M5IavIcdL43hvGfwF86 uUEFukVlulI9ntQxcqQ 5cZjBcZnMyNFxxbFxwb PTtvjavUPczmaL2XKxi nohzPDGaTKrrZ9oeRiW nBHOcfOysEEuyp7YeOU ZiIDTmZjzsxdQ4UDUWn 30rVHNzg6NuONHmgV3y oKGaQSaygrWraPY9VNy hdmUgYmVlbiBkZXZlbG 9uJZIfNE6bLKVltsRqz w2sxiRcAQYhPLTsO1Tp cmlzdGljcyBkZXRlcm1 tojNuGCM7YDVENN2RKW CuMVPcf01dXICogEktr U5krZOlogVaIEZwx6Mh dV1ztJAGOIRsW1oqNR6 cEBasu6UfgNPcxJNszC H5ONNuv9NgCsQcctWgg CJfoOMpQ4CceYkqP2sf QTPrAFUhweDygOWsm2H kLRExsDX5gNDuSD2HUt PGx58pVQAsCLQKmgQmN CAakDfpwJM3ahI1pR7l LiBJZiBhcHBsaWNhYmx fAOCva869gu6vmbN2AR JiYXVidyaay4MdKESnY ZDhfH68ABFiNOThyf2h bthgvRMolgCuG4Hyvdx 7sV5jAVCtSLbaKNAnPV ZzMjJcbGFuZzEwMzNca GljaFxmMVxkYmNoXGYx KZpdR9ytJmScUoBqVes wYXJ9 [facility] Glucose Zbalfb2719-96-43 15:26:33 Test Item Value Reference Interpretation Comments Range POC Glucose (test 131 mg/dL 70-99 H Capillary blood code = 68217-1) samples, e.g . obtained by fingerstick, ma [...] Capillary code = 9554) Performing Lab (test [facility] [place] code = 27174) [facility], [address], [place] [address]; General Education Professor: Paty Chavez MD Lab Interpretation Abnormal (test code = 24193-9) MD DorantesPhosphorus Holhe7390-98-15 10:30:36 Test Item Value Reference Range Interpretation Comments Phosphorus (test code = 2777-1) 3.0 mg/dL 2.5-4.5 MD DorantesCalcium Pmcjh1734-41-76 10:30:35 Test Item Value Reference Range Interpretation Comments Calcium Lvl (test code = 66312-0) 8.4 mg/dL 8.4-10.2 MD DorantesElectrolyte Bvejq3516-54-76 10:30:34 Test Item Value Reference Range Interpretation Comments Sodium Lvl (test code = 138 See_Comment [Au tomated message] 3002-2) The system [employer] generated this result transmitted ref erence range: 136 - 14 5 mEq/L. The refe rence range was not u sed to interpret this result as normal/abnor mal. Potassium Lvl (test code 3.4 See_Comment L [A utomated message] = 8700-3) The system [employer] generated this result transmitted ref erence range: 3.5 - 5. 1 mEq/L. The refe rence range was not u sed to interpret this result as normal/abnor mal. Chloride (test code = 101 See_Comment [Auto mated message] 0112-0) The system [employer] generated this result transmitted ref erence range: 98 - 107 mEq/L. The refe rence range was not u sed to interpret this result as normal/abnor mal. CO2 (test code = 2027-9) 26 See_Comment [A utomated message] The system [employer] generated this result transmitted ref erence range: 22 - 29 mEq/L. The reference r jackie was not used to interpret this result as normal/abnor mal. Anion Gap (test code = 11 See_Comment [Aut omated message] 01847-2) The system [employer] generated this result transmitted ref erence range: 4 - 14 m Eq/L. The reference r jackie was not used to interpret this result as normal/abnor mal. Lab Interpretation (test Abnormal code = 84375-0) MD DorantesGlucose Pxssp0431-79-31 10:30:33 Test Item Value Reference Range Interpretation [...] diabetes Lab Interpretation (test Abnormal code = 95024-6) MD DorantesMagnesium Ebiwi7378-42-69 10:30:30 Test Item Value Reference Range Interpretation Comments Magnesium (test code = 88380-5) 1.8 mg/dL 1.6-2.6 MD DorantesMcihwnfkPsdqwzhgdsqc2503-35-08 10:00:41 Test Item Value Reference Range Interpretation Comments Neutrophil % (test code = 71.7 % 42.0-66.0 H 770-8) Lymphocyte % (test code = 14.8 % 24.0-44.0 L 736-9) Monocyte % (test code = 6.6 % 2.0-7.0 5905-5) Eosinophil % (test code = 5.7 % 1.0-4.0 H 713-8) Basophil % (test code = 0.7 % 0.0-1.0 41918-2) IGRE % (test code = 0.5 % 0.0-0.4 H IGRE % c ount 58184-5) includes Metamyelocytes, Myelocytes, and Promyelocytes. Neutrophil Abs (test code 3.16 K/uL 1.70-7.30 = 751-8) Lymphocyte Abs (test code 0.65 K/uL 1.00-4.80 L = 731-0) Monocyte Abs (test code = 0.29 K/uL 0.08-0.70 742-7) Eosinophil Abs (test code 0.25 K/uL 0.04-0.40 = 711-2) Basophil Abs (test code = 0.03 K/uL 0.00-0.10 704-7) IG Abs (test code = 0.02 K/uL 0.00-0.04 58587-4) Lab Interpretation (test Abnormal code = 58958-3) MD Dorantes.HOS9812-16-28 10:00:36 Test Item Value Reference Range Interpretation Comments WBC (test code = 4.4 K/uL 4.0-11.0 6690-2) RBC (test code = 789-8) 3.03 See_Comment L [Au tomated message] The system [employer] generated this result transmitted ref erence range: 4.50 - 6 .00 M/uL. The refer ence range was not u sed to interpret this result as normal/abnor mal. Hgb (test code = 718-7) 8.3 See_Comment L [Au tomated message] The system [employer] generated this result transmitted ref erence range: [...] See_Comment [Automate d message] 786-4) The system [employer] generated this result transmitted ref erence range: 31.0 - 3 6.0 gm/dL. The refe rence range was not u sed to interpret this result as normal/abnor mal. RDW-SD (test code = 46.0 fL 35.1-46.3 64547-6) RDW-CV (test code = 14.1 % 12.0-15.5 788-0) Platelet count (test 236 K/uL 140-440 code = 777-3) MPV (test code = 10.0 fL 4.0-10.4 94996-5) INRBC (test code = 0.0 % See_Comment The INRBC (instrument 59535-8) NRBC) value ref lects the enumeration of nucleated red b lood cells contained in a 200uL sampleof whole blood analyzed by the instrument. Thi s value maydiffer from the NRBC value repo rted in a manual differential,wh ich is based on a 100 cell differential. [Automated mess age] The system [employer] generated this result transmitted ref erence range: <=0.0. T he reference range was not used to int erpret this result as normal/abnormal . Lab Interpretation Abnormal (test code = 85928-7) MD DorantesProthrombin Time with [id number] 11:12:21 Test Item Value Reference Range Interpretation Comments PT (test code = 5902-2) 14.9 See_Comment H [Au tomated message] The system [employer] generated this result transmitted ref erence range: 11.5 - 1 3.9 second(s). The reference range was not used to int erpret this result as normal/abnormal . INR (test code = 6301-6) 1.26 0.90-1.10 H Lab Interpretation (test Abnormal code = 90011-3) MD [place] Interpretation Antibody Screen Vticzhjk3280-86-62 13:43:46 Test Item Value Reference Range Interpretation Comments TMP Auto Neg At the present ABSC Interp time, patient (test code = plasma shows no ____NICHOLE GAN 7535) evidence of RBC SERA HUMPHREY MD alloantibodies. - [id number] mary by: NICHOLE NAPOLES MD - [id number] Date/Time: 08.03 8:43 AM CDT Transcribed Rohan e/Time: 08.26.2021 8:43 AM CDTElectronical ly Signed By: NICHOLE NAPOLES MD - [id number] on 8:43 AM Julián [place] Interpretation Fhngvsdtse1820-27-67 13:43:45 Test Item Value Reference Range Interpretation Comments TMP XM Interp RBC units (test code = crossmatched for 7566) transfusion appear GEORGE GAN acceptable. MD Carri JIMENEZ [id number] by: MD Carri ESTRADA [id number] Date/Time: 08.03 8:43 AM CDT Transcribed Rohan e/Time: 08.26.2021 8:43 AM CDTElectronical ly Signed By: EULALIA HUMPHREY MD - [id number] on 08.26.2021 8:43 AM Julián Tobar RBC:accc, 2 Bjnbo3396-81-77 09:09:32 Test Item Value Reference Range Interpretation Comments PRBC Product Ready 2 Red Blood Cells (test code = Available - 92810-4) Order Form 03 when ready for product issue. Unit Number (test [id number] code = 7002) Product Code (test [id number] code = 7003) Unit Expiration (test code = 207449) Unit Blood Type 9500 (test code = 7004) Product Code Text RBCIRLR CPD AS1 (test code = 500mL 294417) Crossmatch [id number] Expiration Date (test code = ) Unit Irradiated IRRADIATED (test code = 664147) Dispense Status ISSUED (test code = 7001) Unit Blood Type O Negative (test code = 7005) Product Tractor Crane Engineer .BPAM ____ Location (test ___ code = 407444) ___ ____ MD AndersonRBC Product Ready for Pick [id number] 03:22:01 Test Item Value Reference Range Interpretation Comments PRBC Product Ready B2 Blood Bank Product is ready for for Tractor Crane Engineer (test waste picker on August 25, code = 462677) 2021 22:21:56 CDT. MD DorantesAntibody Wrjpjg7639-34-11 03:13:05 Test Item Value Reference Range Interpretation Comments ABSC. (test code = 890-4) Negative ABSC MD DorantesZqwwbkthBXNUt7612-43-37 03:13:04 Test Item Value Reference Range Interpretation Comments ABORh. (test code = 882-1) O NEG MD DorantesClot Expiration Ymiu6832-52-86 03:13:03 Test Item Value Reference Range Interpretation Comments T & S Expiration (test code = 08/28/2021 5318) MD DorantesConfirm [id number] 01:27:34 Test Item Value Reference Range Interpretation Comments ABORh Confirm. (test code = 882-1) O NEG MD DorantesCOVID-19 (SARS-CoV-2)Njgupxjetqqf-XK2507-60-25 00:26:20 Test Item Value Reference Range Interpretation Comments COVID19 Not Detected Not Detected (SARS-CoV-2) (test code = 12910-8) COVID19 SARS Inpatient Indication (test Admission code = 79003) Covid 19 Comment See Note The rufino S ARS-CoV-2 (test code = [place] [address]) use on the dharmesh s Alyson System [...] sheet for patie nts provided by the orientor ([employer]) can be rev iewed at: https://www.fda .gov/m edia/427455/denys nload. A fact sheet fo r Health Care pro viders is provided by the orientor ([employer]) and can be reviewed at: https://www.fda .gov/m edia/578745/denys nload Results must be interpreted wit hin [...] high-comple xity tests. The Microbiology Laboratory at [facility] [place], CLIA Accreditation #[id number] and CAP Accreditation #[id number], verif ied the performance characteristics of this assay. Int ernal controls are ed to monitor all sta ges of the test proces s. MD DorantesLqjpdzwoxXSW3822-99-35 23:59:55 Test Item Value Reference Range Interpretation Comments aPTT (test code = 32.7 See_Comment [Automate d message] The 13657-5) system which ge nerated this result transmit mary reference range : 24.7 - 36.8 second(s). The reference range was not used to interpr et this result as shavon l/abnormal. MD DorantesFractionated Uqzzzctcx4299-49-51 23:57:02 Test Item Value Reference Range Interpretation [...] 28 g/L. [Automate d message] The system [employer] h generated this result transmitted ref erence [...] mg/dL 0.0-0.9 code = 1971-1) MD DorantesTotal Uitvyyh0688-83-29 23:57:00 Test Item Value Reference Range Interpretation Comments Total Protein (test code = 2885-2) 7.2 g/dL 6.4-8.3 MD DorantesAlkaline Ygimtjhkkqu1463-50-66 23:56:56 Test Item Value Reference Range Interpretation Comments Alk Phos (test code = 6768-6) 64 U/L 40-129 KzsneztyQQH0385-97-84 23:56:54 Test Item Value Reference Range Interpretation Comments ALT (test code = 29 U/L See_Comment [Automated message] The 1741-11) system which ge nerated this result transmit mary reference range : <=41. The reference range was not used to interpr et this result as shavon l/abnormal. MD DorantesAlbumin Ytsag9941-13-74 23:56:53 Test Item Value Reference Range Interpretation Comments Albumin Lvl (test code 3.7 See_Comment [Aut omated message] The = 6560) system which ge nerated this result tra nsmitted reference range : 3.5 - 5.2 gm/dL. The refe rence range was not used to interpret this result as normal/abnormal . MD DorantesAspartate Avyxsadmdaovjuge8986-87-69 23:56:51 Test Item Value Reference Range Interpretation Comments AST (test code = 32 U/L See_Comment [Automated message] The 1920-01) system which ge nerated this result transmit mary reference range : <=40. The reference range was not used to interpr et this result as shavon l/abnormal. MD DorantesCOVID-19 (SARS-CoV-2) PCR-Asymptomatic [id number] 10:04:37 Test Item Value Reference Range Interpretation Comments COVID19 (SARS Not Detected Not Detected CoV-2) Result (test code = ____This test i s a 17363-7) qualitative reverse-transcr iptase polymerase mario alberto n reaction (RT-PC R) developed for t he [employer] 680 0 system and inte nded for qualitative detection of SA RS CoV-2 RNA in nasopharyngeal and oropharyngeal s wab specimens colle cted from any indivi duals, including those suspected of CO VID-19 by their health care provider, and t hose without symptom s or other reasons t o suspect COVID-1 9. A fact sheet for patients provid ed by the manufacture r ([employer]) c an be reviewed at:https://www. fda.go v/media/345874/ downlo ad. A fact shee t for Health Care pro viders is provided by the orientor ([employer]) and can be reviewed at: https://www.fda .gov/m edia/809963/denys nload Results must be interpreted wit hin [...] were verified by the Microbiology Laboratory at [facility] [place], CLIA Accreditation # : [id number] and CAP Accreditation # : [id number]. 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 Path Review (test code The results have been A = 8492) reviewed and electronically signed by Pathologist:BERTA BRADY MD #[id number] Gram Stain Report (test Moderate WBC's A code = 648-6) seenEpithelial cells seenModerate Gram Positive CocciModerate Gram Variable Madan Lab Interpretation Abnormal (test code = 10793-8) MD DorantesStreptococcal Urine Antigen Path Fpjcyd2294-37-23 07:11:21 Streptococcal Urine Antigen Path ReviewPresumptive negative for S. pneumoniae antigen in urine, suggesting no current or recent pneumococcal infection. Infection due to S. pneumoniae cannot be ruled out since the level of antigen present in the urine may be below the detection limit of the test....Reviewed and Electronically signed by Pathologist:Amaury Sinha MD, PhD #[id number] Comment: AMAURY SINHA MD, PhD - [id number] by: AMAURY SINHA MD, PhD - [id number] Date/Time: 07.11.2021 1:11 AM LINE LEAD Transcribed Date/Time: 07.11.2021 1:11 AM CSTElectronically Signed By: AMAURY SINHA MD, PhD - [id number] on 07.11.2021 1:11 AM [facility] AndersonLegionella Urine Antigen Path Odtuxp4264-14-54 07:11:20 Legionella Urine Antigen Path ReviewNegative for [...] Electronically signed by Pathologist:Amaury Sinha MD, PhD #[id number] Comment: AMAURY SINHA MD, PhD - [id number] by: AMAURY ISNHA MD, PhD - [id number] Date/Time: 07.11.2021 1:11 AM LINE LEAD Transcribed Date/Time: 07.11.2021 1:11 AM CSTElectronically Signed By: AMAURY SINHA MD, PhD - [id number] on 07.11.2021 1:11 AM [facility]MD AndersonMRSA Screening Igbymxo1757-72-20 17:31:51 Test Item Value Reference Range Interpretation Comments Final Report (test No Methicillin resistant code = 8488) Staphylococcus aureus isolated. Path Review (test Culture yield may be code = 8492) affected by sample quality, prior treatment, and transportation conditions....The results have been reviewed and electronically signed by Pathologist:Amaury Sinha MD, PhD #[id number] MD DorantesTroponin T (In-House)2021-07-10 12:49:59 Test Item Value Reference [...] res ults. [Automated mess age] The system openPeople generated this result transmitted ref erence range: <=18. Th e reference range was not used to int erpret this result as normal/abnormal . Lab Interpretation Abnormal (test code = 70405-4) MD DorantesCalcium Ionized, Jwmipz2617-73-32 04:43:41 Test Item Value Reference Range Interpretation Comments V Ion Ca (test code = 57225-7) 0.96 mmol/L 1.15-1.29 L Lab Interpretation (test code = Abnormal 61255-2) MD DorantesStreptococcus pneumoniae Urine Ufyxauz9494-84-34 23:04:40 Test Item Value Reference Range Interpretation Comments Streptococcal Urine Antigen Negative Interpretation (test code = 82821533) MD DorantesLegionella Urine Yjfijyi1549-37-83 22:58:02 Test Item Value Reference Range Interpretation Comments Legionella Urine Antigen Negative Interpretation (test code = 5287042) MD DorantesTrsgjzveJamcfshvyjnnt4654-34-88 00:33:03 Test Item Value Reference Range Interpretation [...] extended diluti on as it exceeds the orientor's recommended krishnamurthy it. Caution should be exercised when interpreting han ch values and done in conjunction wit h clinical contex t. [Automated mess age] The system openPeople generated this result transmitted ref erence range: <=0.08. The reference range was not used to int erpret this result as normal/abnormal . Lab Interpretation Abnormal (test code = 30906-9) MD DorantesGeneral Laboratory Add-On Akyo8687-88-98 22:22:54 Test Item Value Reference Range Interpretation Comments Ordered (test code = 6568) Test Added Test Needed (test code = 7604) Procalcitonin MD Breaux Srltu1635-47-58 19:02:48 Test Item Value Reference Range Interpretation Comments D-Dimer (test code = 0.77 See_Comment H Recheck ed and 5436) VerifiedThe cut off value for exclu mir of venous thromboe mbolismis <0.51 mcg/mL FE Us (fibrinogen equ ivalent units). [Autom ated message] The sy stem which generated this result transmit mary reference range : 0.10 - 0.50 mcg/ml FEU . The reference range was not used to interpr et this result as normal/abnormal . Lab Interpretation Abnormal (test code = 13028-3) MD DorantesCardiac Ggwpl2136-95-62 18:51:30 Test Item Value Reference Range Interpretation Comments CK (test code = 5206) 112 U/L 39-308 CK MB (test code = 2.4 ng/mL See_Comment [Automat ed message] 6273) The system openPeople generated this result transmitted ref erence range: [...] res ults. [Automated mess age] The system openPeople generated this result transmitted ref erence range: <=18. Th e reference range was not used to int erpret this result as normal/abnormal . Lab Interpretation Abnormal (test code = 04545-9) MD DorantesPOC Chem 8 without Hemoglobin and Iqljypdzto7128-59-34 18:20:24 Test Item Value Reference Range Interpretation Comments POC NA (test code = 131 See_Comment L [Automa mary message] 40056-9) The system openPeople generated this result transmitted ref erence range: 138 - 14 6 mEq/L. The refe rence range was not u sed to interpret this result as normal/abnor mal. POC K (test code = 2.3 See_Comment A Method de scription: 69244-5) The i-STAT is a n analyzer used f or in vitro quantific ation of various anal ytes in whole blood. The device uses a s lindsey disposable cart ridge which contains microfabricated sensors, a calibration che ution, fluidics system , and a waste chamber . Each test cartridge contains chemic ally sensitive biose nsors on a Tech[employer]aner ip that are config ured to perform [...] L [Automa mary message] 2068-08) The system openPeople generated this result transmitted ref erence range: 98 - 109 mEq/L. The refe rence range was not u sed to interpret this result as normal/abnor mal. POC VTCO2 (test code 32 See_Comment H [Autom ated message] = 2026-06) The system openPeople generated this result transmitted ref erence range: 24 - 29 mEq/L. The reference r jackie was not used to interpret this result as normal/abnor mal. POC Anion Gap (test 21 mmol/L 10-20 H code = 60244) POC BUN (test code = 16 mg/dL 8 6299-2) POC Crea (test code 1.0 mg/dL 0.6-1.3 Medicati ons, = 98977-0) especially hydroxyurea or supplements, han ch as ascorbate, can interfere with test results causing a falsely and significantly h igher result than exp ected. If a problem is suspected with a patient's resul t, a sample should b e sent to the [facility] for confirmatory te sting. Method descript ion: [...] ally sensitive biose nsors on a silicon [employer] ip that are config ured to perform spec ific tests. The microfabricated sensors measure analyte concent ration by an electroch emical assay. POC eGFR-AA (test 87 See_Comment Normal eGF R >= 60 code = 74916-4) mL/min/1.73 m2 The eGFR is calcula mary [...] eve lysis) [Automated mes vasquez] The system openPeople generated this result transmitted ref erence range: >=60 mL/min/1.73 m2. The reference range was not used to int erpret this result as normal/abnormal . POC eGFR-JOSELITO (test 75 See_Comment Normal eG FR >= 60 code = 92912-2) mL/min/1.73 m2 The eGFR is calcula mary [...] eve lysis) [Automated mes vasquez] The system openPeople generated this result transmitted ref erence range: >=60 mL/min/1.73 m2. The reference range was not used to int erpret this result as normal/abnormal . POC Glucose (test 132 mg/dL 70-99 H code = 99178-4) POC Ion Ca (test 1.00 mmol/L 1.12-1.32 L code = 55482-0) POC Sample Type Venous (test code = 6690) POC Clean Dev (test Yes code = 6672) Performing Lab (test MDA Main Main Ca mpus code = 34662) [facility], [address], [place] [address]; General Education Professor: Paty Chavez MD Lab Interpretation Abnormal (test code = 30971-6) MD [facility]CEN[facility] Oqpnwvqg2396-33-23 18:20:23 Test Item Value Reference Range Interpretation Comments POC Critical Comment See Note Test pe rformer notified (test code = 8955) Ordering Licensed Provider and /o r designee of POC Potassium criti nikki Results. MD DorantesCreatine Luxzyr2239-58-72 18:26:09 Test Item Value Reference Range Interpretation Comments CK (test code = 5206) 84 U/L 39-308 MD DorantesNT-Pro BNP (In-House)2021-06-22 18:26:08 Test Item Value Reference Range Interpretation Comments NT ProBNP (test code = 1199 pg/mL See_Comment H [Aut omated message] 3471) The system openPeople generated this result transmit mary reference range : <=125. The refe rence range was not u sed to interpret th is result as normal/abnormal . Lab Interpretation Abnormal (test code = 95782-3) MD DorantesDyxdarkeFOGI1807-94-87 18:26:07 Test Item Value Reference Range Interpretation Comments CK MB (test code = 2.6 ng/mL See_Comment [Automat ed message] The 5209) system which ge nerated this result tra nsmitted reference range : <=10.4. The reference r jackie was not used to int erpret this result as normal/abnormal . MD DorantesPathology Outside Yhjopizjkrpbyr2004-88-41 20:17:02 Test Item Value Reference Range Interpretation Comments Materials Received (test f6wegCRfWOTnjCSmGuFz code = 9973) UPSkKSKrv8fnVRLqiBHy ZzEwMzNcZnRuYmpcdWMx AKYoDaFvd5ved975kTUy t5jiAXWwSgH5zNUsELYr gYOtB941AYNoJOwum4lb z3DyUZHrsXBlh9Q9DLNR utdfsFe1gMeeR51ky2L5 HqifZ0ssVOBxJCPqP4Hb PT7jSVIvLjo3AWN7WTN9 PWEgAFUsP3RlNM0jRHEb jXBcGWh9z1cfuVefDFBv ENW1j2biXVxyxdRaMB8d ah3ayNe5z8fhqwOtWQIx MSTrvCDAGYCzA2PotHoa Xf0jgCk8bXscOxwmNYJ7 Ewy1LV3rft18rdr6oOyp TXFdbnbbWvR9LUjnFRCg wnniBWg2CYhyIIEzoQdj MFxtYXJncjcyMFxtYXJn aHH2ZTLwpAWrT0WdEQFw QVhuAOSnjyr5SkXtSr2w hMKsgRefRNafa4iho7ey tSCpHiy9SWCaFjVoCkmn TDtkl9Xpk1kxYPApfm7b NQB7bKAbqDovy2J1iTLj DWQrpEPadyGzJBErxs82 pMKioCXujWNajt8bcaIt xUNodTFqVGG2uKQxonEp XXNivFOuOMDpQD4jbUQo BRGpyY7otvkkHDPnDcMl ftebPSUhxHcgldUiOr3y nIqiHEP1PNnsZ3tngD8t CoW8UEmyM5amkM8iVFw1 KRahfBV0HUBfkV0aLH0m siier5xnUlJeVF6icgmq v7myCbNcCL1glqd4d2tb VNA6BBsiAQOgJvF4xwB7 NDBcaGVhZGVyeTcyMFxm d156YRJ5AgUtCGQme6Qm E6XqjWjvU54dcFkbL95f EZJfhXlhtF8nkFfbqY1l AtFwCwTlWDa9sd85YGq3 qqbdfSoyHNe8uvLsJTMj RRW5FLRzuLJlOQAtO0z9 ddUlGVSvARJ0AGAzpSIf OEXqL6o5fgVlJOA7QMz9 cnBhZGRmdDNcdHJwYWRk YjBcdHJwYWRkZmIzXHRy vIMolAEgrYXvmB7imLkp DAVegNJqtK2dTQA7MPJy cmgzMjBcdHJoZHJcbHRy jc20DHQwwtKajMNxaCan aEGrGGO2HBDqHWWxDFKo SYV4ACJoUbOuphLfLHnt bGJyZHJiXGJyZHJzXGJy OHA0BSDdEfOjgnDdZNuh bGJyZHJsXGJyZHJzXGJy AUL3VNXfYpUvyrZmJJye bGJyZHJyXGJyZHJzXGJy HRW5GXXlDlMwknCfHIwa bHBhZHQxMFxjbHBhZGZ0 H2vrqKRgRJJqDKldnDDv CACyI0rdoNFeSNthXJWa cGFkZmwzXGNscGFkYjBc G0slALCiDnSfR8WqiDt2 MDAwXGNsdmVydGFsdFxj vSDfJQS3MFFkSAZzJRHu KJN5HVGtCnSaqnPoOCto bGJyZHJiXGJyZHJzXGJy NUT4GCHqBeIltwYdMLmw bGJyZHJsXGJyZHJzXGJy PMV7KUPqKhKxkyOtYRio bGJyZHJyXGJyZHJzXGJy VBG3NPLxXnCwzqMvVGvt bHBhZHQxMFxjbHBhZGZ0 V6ggoEXeVEFjAUjiiHFz RPOgN4fudJRgVNydHNCm cGFkZmwzXGNscGFkYjBc X2viBEAlAqSjT1VgkLd1 NjAwXGNsdmVydGFsdFxj zFHaXED7BWStHKOhBBWc FLS8WJHhTvRpxsUzSLfb bGJyZHJiXGJyZHJzXGJy TTQ2MZJiSnLmymDqORnb bGJyZHJsXGJyZHJzXGJy AEC0YIOnFzQfrdXkYKur bGJyZHJyXGJyZHJzXGJy TFL9IZFlAzFrqvLxDJft bHBhZHQxMFxjbHBhZGZ0 E1dlhYAaVAGoEVugzZQg WYJcR6lutXQeYNayQXIc cGFkZmwzXGNscGFkYjBc W4bhILQjDdEeF7SaxOv2 EhXlUGAufpJwpE03Jthz r1PxNMWoYCN7LRptESpr bFxwbGFpblxmMVxmczIw WNejywctYZFeFKgxM8ms UbTeOFVhqMepSPjfl3Le XGYxXGNmMlxmczIwXGIg CLYlEOOkiG5aRnxaD5Ea zJ1qFTimYjpeH3exQSOp j3OfjL0fVBmedGShpmna MVxmczIwXGxhbmcxMDMz YJlrW6xuQyOqCASjaQwp QCels1CnGJVkMLXpNioc dzZsXQa7drWeLQIjxGje hSLkKWtroxNqsTelz9Ru ziTkzJddIWFfFLf9bkSu kapinGj6zBFrfUnoFQSs qQiewM6zRxWaJmVcZXyo bGFpblxmMVxmczIwXGxh kzooZHZdLAjvO1evCpIs XRKggZjuWHdcn6HnINTn AVPxBdsirbBaYKFdX41g bGVjdGVkXHBsYWluXGYx XGZzMjBcbGFuZzEwMzNc aGljaFxmMVxkYmNoXGYx SDqeQ9syOvObV9RgJFVp CaZqpMRhS0psT5KsnTgk YXJkXGludGJsXHNzcGFy ATJ4sSOxvkHqgNXojZQc MOQiWSulKBF7zGGsblpt kCRnzfhmERdgqsQ6ZWIn YWluXGYxXGZzMjBcbGFu ZzEwMzNcaGljaFxmMVxk HbDmJWByYKbxC3yuOcHx E7UxPUPrLnWsSnNXSRQu aXZlZFxwbGFpblxmMVxm czIwXGxhbmcxMDMzXGhp O6shPjGcRTPlhJxgEHqz t1ZsLZBsJOPlWvfnobUz LVr2svGdMIJzmFlcgR09 Hacloy55ZKQkh1naOOQc Y4TgmXKeOAUupYMyPAcb MDhcdHJwYWRkZmwzXHRy cGFkZHIxMDhcdHJwYWRk ZnIzXHRycGFkZHQwXHRy dWDpWTQ1C4k2ejXiOMIa NPw1eyByIDZhZoIivWZz AVK2BVn3EzkbwbR5lGSn L5e5QgjptoFxCEsaiDWp dn61MZYrtwCogFOgfIdd fBSoEXM5ZJKiUTVwFICr BIL7IXKvKnGbjxQuDNvg bGJyZHJiXGJyZHJzXGJy CWH5FULaLmXlsjYfNBrq bGJyZHJsXGJyZHJzXGJy FVN7PXFnRmUhjvWjITjb bGJyZHJyXGJyZHJzXGJy YTV6RZCpSzYorpLpQPku bHBhZHQxMFxjbHBhZGZ0 N4fzyAShYFVyQOwmfSNo KMOrI0emhENvYTxwQRJg cGFkZmwzXGNscGFkYjBc W5ocBNTcCuKmT8TtzOv2 MDAwXGNsdmVydGFsdFxj oSPxMHX2MCWrWEAsEDVd UYN1QKHcKrZmisWxSCkw bGJyZHJiXGJyZHJzXGJy VQV4TVSuWyPodiRsWHrb bGJyZHJsXGJyZHJzXGJy BHE0UNEiAyGjzfBuMEtd bGJyZHJyXGJyZHJzXGJy WKL6YJLgLqNaoiAgVEws bHBhZHQxMFxjbHBhZGZ0 F3rzrSPyPSXfGGhueFGb DKEzB5xezXHjSSovJGZc cGFkZmwzXGNscGFkYjBc A5oaHCIbVuWqE6ZimTf9 NjAwXGNsdmVydGFsdFxj iIFuONK7RAHyWFJcTHYe WVW6SQSnCiHzisQuYXgd bGJyZHJiXGJyZHJzXGJy FUB1ZYBbLkPcygKxGPgv bGJyZHJsXGJyZHJzXGJy BHH7CUDeUtAbllGmKJlm bGJyZHJyXGJyZHJzXGJy YIV4XAKaVwHeenJjWUkb bHBhZHQxMFxjbHBhZGZ0 J8bloECyMDVwZJgoqXQl FWDaF6iecGScVFjrTBTd cGFkZmwzXGNscGFkYjBc N0plERHbHmDfV5WxlMa9 XaVmMNLnbpEkpX46Howh v4KxJBZuAVU4ESfeRUfk bFxwbGFpblxmMFxmczI0 XHBsYWluXGYxXGZzMjBc bGFuZzEwMzNcaGljaFxm TPjkVpSmTEZcNYvoB3vw HvPzR3BqCZUoBzUfYG4r XfR3MEWnRAJ9FYC5UNQL AZWrQEDDH3ZZKkelICCY B0HpdWzjqH6oXrBmYaHb LNmoXU4wTEAkE8ndmXJu GBFvBTHiU4moEvZzvR1o aFxmMVxjZjJcZnMyMFxs dHJjaFxjZWxsXHBhcmRc nH74Uewcm9YxQZVjPFQ6 MFxzMFxxbFxwbGFpblxm EFvospE8DUKuKZmuFKHp XGZzMjBcbGFuZzEwMzNc aGljaFxmMVxkYmNoXGYx YPbpX4moUsZxM5BgBKQu MjAgMTAvMjUvMjAyMVxw bGFpblxmMVxmczIwXGxh rkfaSJNyZRsjO4iiMnSe OQJeoJvaSGqof0FpMPZz LSSyUugtloSoWWz2tnSi XGNlbGxccGFyZFxpbnRi oZnio7JyigBggCvfYLVv XHFsXHBsYWluXGYwXGZz XwOjmNufeQ8dQwHyMxUl CBbvOH9jMWUiZ4wqbHTl UPZuKZWcX5poViImaX2h aFxmMVxjZjJcZnMyMCAx DW8uEu9dHNBqREYtPIfc XGYxXGZzMjBcbGFuZzEw MzNcaGljaFxmMVxkYmNo HYXtJWzwF9kuUaGfI2Xo LZYqFqQzzAZhX9eeO8Wd nYacogXmiLwhg7qcrZBc IQsgy8XvgeQmzHbgLRQo XHFsXHBsYWluXGYwXGZz ZkFvyFzkyQ1dOmJnEoQy ITnnLA6kOMQoH7seaJMy ZGIaQJSbF0sdFmDvqB2k aFxmMVxmczIwXHBhcn0= Addendum 1 (test code = q9xlxKVqYISyvMF8NeQs 37) ITYxp9tfy6LykQSwmSOd ZDvgxOIknaBnwu89rEA9 rS79UR1dRVGxFgS7OEUi rbZ9Evt2DHXxSZJauOBd G409q6vef8trdxOrbGY2 fAetEGOkwguvXuL7UShn NCGqaavyAKh4SFtcUJCi xPE5QSOieTOxB4FgLYVz YA6sbze1VCU5YSipYRVx DgT8OLItfFAgQARjnDbt MJnuz180NFK0QpHvEHLr nnOgbNicsF3aVcVtHCTV SDIlqWqplcRiYW7sxFIv gFTkTYYsG7EcjlQgJW9v UQWpHdQvDsSlRsHqFX80 rBNcGOXkIGEdFHLhrG3v ZnciWlG6TYQcJEH8LCHe PMJAHGKrVTBFP2VVKYMt YSAUPrdfK43rdVJhyBRj UQ8iOFGrRoA3DdPfAsVf XHBhclxwYXIgRGVlcGVy MDbvqqUwyhLvDrJglE0k nxVnHbX2RHKjGJZ3CQEu IHdlcmUgZXhhbWluZWQu RNGhZGEawkdoxK9gzVKr aAFmsg7yyJVzspLmZNbe thE5uvDgIF1nDZGyJQWs cn0= Diagnosis (test code = f3ewzFJlWBEmmYW3TqQx 34) MYAqn0ykn3ZihTGyyPJd LNdkyEPbmqIunr21dBG3 nQ00DN2uFHInImB1SNGt tkK0Vyo4SIOiDTIbyYOn I023g2lju1ocuxRkyBW6 CPKlJQQuU5FgBL3dJSGc xYFkY91qnFVrHDR6GOMr TQDwcKDsTIFrHSI9UGBp xDWcL6maVLVxDE3avgqn QOtmPKlhLVCywXX4VSXr pELxL8OiDBXaPWecKOFe mnr4SkNwVk1cvOYonTkg MFxwYXJkXHBsYWluXGZz CwWiA0ClEM96fMRxQQQq KDIxOklTMTUzOCwgNiBT Iya2VKUspsiuJkRuqSAn XGxpNzIwXGxpbjcyMCBM QGG8szmwNXGhB8b0CEFp dPIcen0yFSalYggvsGU2 IChBKTpccGFyXGxpMTQ0 QBffeB1vZTEaEJYYUDLE L8FLQCFZVSopJ2ZBH0cZ J81OCIWpaTLigEQex9Ka USWchlJereXak8xlrdac XZYvrZm2PaJpfNgnRcQk TIVueyVUNBL0vnyzVIes CoXkWPJ6mRItq9nwVNHl kN3ks8gdSEEhOscfJLQk nSbuRHDbXKidnzX6RPPi J5K5HE9xrPHpcOCpd0Sm STkqaVyvV0ueq81bJxNh spZtNY0gWKQoi19zEN2a Q2F6yXAqTJGsmtW1lI8v tojaDBYomJb2DzWmhWtz BxRkQIKsiyDVNKA3dvyt TSxjLbHgJgJnw2Oeic9v WJyyL32cRGcwKjslpME4 IChDKTpccGFyXGxpMTQ0 CImksY1mZAGrDSVvhEEr v1WcVH12C57dFRAchbGf tWwjc5Umd1ZddNYwrdkp E1iyuyUhUV5nZ2Y8gMXx KVSiagE8cC7kmsurQPZp yAXpRHVewjPkZ04PF3BH TlxwYXJ9 Reducing Salon Attendant(s) (test code b9qlbCCwQZYjxAD6FzMm = 9887) NUGhi6zvf9IijOIqaGZk RTsymDLtcwJdjf51cML0 cX62QK3sSWMfEfF8JSRs adB9Bmh1GVEoQYDcbNBa J401h4icq8dnuyIwqUV1 eCguQCArsvgqLbF0KPli VHQatejiSWb9DFrwNCXp gME0SDJxjMRcB5JxOPFf XB0bidv7BJG2MWktOCJj SfB8ALVikHAzSCLhrCkt ZPisp665PYT0WaGxATTv xvWvpMfobZ7qJqCjUMCJ eb8jWUuorDEajSPlT8cf bGlhbXMgaGFzIHJldmll w2KgBNZxiiOdTTTtwdDx H56oN7Fcmp1piTMxrS== Biomarker Block(s) (test j8rpoZEaAULgoGQ6PaMl code = 9841) YCCwq1ozu4UukEEmcVZi MFuwyNDchrKojp46pCN4 gA80EI9xKNIdBzH5PLPq ziL7Hes1UCYcNRZfeSTf N579m4ulm2znouWmjQZ1 pXgeWTZojjzeGvQ3TIrf PHDbvfwpKNt5PMfcNEGb hQQ6PNSmbOQeK8LjPXJi KF9xykf7LQO2HPxgNMHz BfI3RHAqiYErZFMnhSjp DGchc716VRF9WnWpKTHc wdTxtZmpkG5aRrZsJPCV OiBBXHBhciBOOiBDXHBh cn0= Disclaimer (test code = a8bjxHUdBUSeeUBiVlQg 9844) MBEuLUNdn0guKJUclCBe ZzEwMzNcZnRuYmpcdWMx EQBmKnDfa6qao757eBFc n9kiAOSySfU9vMMhBCTq jGZdQ940XKFhPOycz8vj t7BpVOLsiXJxu9Q9NTLW hbauhLn0oNyoF39yo7R5 LeehM1hcGXXfMEKtM3Gb JW6aAOVbQeb3VLR4ABG5 YZTiFUSfB1FiSS3qJKCb gPWtXMa1e8yqnWelDJWg LUH6j3biHFfllyCgKQ0i ay5wwQl6t7gfapGfBYFl IAZihPFBTSAxK4MawLad Km4dgIk7uIvfSaapTTV7 Eex9BX2tut81jbc9gSbq MDJfkfvsHsN6JRzxMDYf uowcGJd5SJtsHERrqIN2 DPSrhAUsF9NwNXBjQV4f ulj6XMR2XPbiENElIpE2 NDBcaGVhZGVyeTcyMFxm b252QTM3IwPfNZ1gT9Hp j2T6oU1veRJfHWOzbMVa YaGpEFWacj2qgWTmXZad h4HmOOM9duZ9yTCrgURa SIFwFB97Apjut3AhXfsc VOQ3RHCnihRdi4She9zq ZaWxedKuP8plL3KtKFHv VLSqHBRrEjJfdkZym9Qq w5IuvTJxuQs4u8fiEYHx PWXoxUccw5kwSPS2VPQh R2L9tBEgp8pwXGsaIWUg xTB5lxZ4ROVsfGLgY5Vb xR6eIFQaLJ6fvbi7e7or YIX8CHhkQIJiVnP0pjH9 NDBcaGVhZGVyeTcyMFxm z405SQA3MwQkLBCxf8Bv M8VnlWeiB06gjGgiZ29n AKSyfFevsG2biQpqfA0b ZjBcZnMyNFxxbFxwbGFp cxmcMMxchkW4YVbfiwib MCSpYTkzI8kgFvIsZVMm eJtzKQzlm8QnLJLhFAFf PnwnqeJ9OPGOp79hSMAs l2IkUZSztR3huJKlOHth lvXpzGQ2CTybaaNxOjGs trTcMONiuN3zJCIjVE0n ZESgxbEjfb0fcrNuXAUz AUUzP0AtlribvQoimtYi JVTewm5bjmFyFUK1FRYP VV5UKFAiIVDxi29uOGPw mEqccC0wnVPqmmTpLLZr t1IwpT0szDBZMAItW2jg PZ3iIWxgi1WpvCEywEYe bZH5TSHvi3SkVwMvssBk lLNgzNRtV6ZkjXraV7tr BUYkJWYjxtDoiAHww7Gc HOWfcKZ1qVOoYI1BKaWC b98qJODoZPIChoMtPUUf bOntmSW8qjO5wN5hFlYS ZiBhcHBsaWNhYmxlLCBj y635oa3chfP4VMQmIKRl gmxmm9LcFZCyAVXpeQ50 TXIyBPLwqe2vegkbfERs bdLoU7Jahbh3kT3tWLPs YWluXGYxXGZzMjJcbGFu ZzEwMzNcaGljaFxmMVxk JoTyGZSvDYjpJ6qrAlDc ZnMyMlxwYXJ9 MD DorantesMD COVID-19 (MAURA-CoV-2) PCR [id number] 01:46:37 Test Item Value Reference Interpretation Comments Range COVID19 SARS Pre-Out of OR Procedure Indication (test code = 76009) COVID19 SARS Result Not Detected Not Detected (test code = 29830-1) COVID19 SARS SARS-CoV-2 NOT Detected. Interpretation (test Reference Range: Not code = 64530) Detected Methodology: The [employer] RealTime SARS-CoV-2 assay is a qualitative real-time reverse printing screen assembler polymerase chain reaction (final assembly inspector-PCR) test to detect RNA from SARS-CoV-2 in nasal, nasopharyngeal and oropharyngeal swabs from patients with signs and symptoms of infection who are suspected of COVID-19 by their health care provider. The [employer] RealTime SARS-CoV-2 performed on the FoxyP2 System is a dual target assay with [...] CLIA-certified, high-complexity Molecular Diagnostics Laboratory (MDL) at [facility] [place] under the Food and Drug Administration (FDA) s Emergency Use Authorization. Factsheet for patients: https://www.[facility].org/ AbbottFactSheetPatientsFact sheet for healthcare providers: https://www.md[facility]erson.org/ AbbottFactSheetHCP Test performed by:[facility] [id number] [place] [address] MD DorantesGlucose, [id number] 18:55:04 Test Item Value Reference Range Interpretation Comments Glucose Random 136 mg/dL 70-199 Effective 2 12/17, the (test code = 9360) glucose r eference intervals have been updated based o n [employer] rommel delines (Standards of [...] Not fasting PEDRO LUIS) MD DorantesVitamin D [id number] 18:49:59 Test Item Value Reference Range Interpretation Comments Vitamin D 25 OH (test 42 ng/mL 30-100 Refere nce Range: code = 8018) Deficiency: <10 ng/mLInsuff iciency: 10-29 ng/mLSufficienc y: 30-100 ng/mLPotential toxicity: >10 0 ng/mL MD DorantesTMP HCV Ab Path [id number] 12:33:38 Test Item Value Reference Range Interpretation Comments HCV Ab Path There is NO Interp (test serologic evidence code = 8923) of Hepatitis C M AYRIN virus antibody. DELFINO FERNANDEZ,Dictated by: RUFINO FERNANDEZ,Dictated Date/Time: 05.04.2021 6:33 AM LINE LEAD Transcrib ed Date/Time: 05.04.2021 6:33 AM CSTElectronical ly Signed By: JOSEPHINE FERNANDEZ, on 05.04.2021 6:33 AM C MD DorantesHepatitis C Virus [id number] 05:13:47 Test Item Value Reference Range Interpretation Comments HCVAb. (test Non Reactive Non Reactive Antibody detect ion in the code = 5762) immunocompromis ed and immunosuppresse d population may be delayed or absent entirely. There fore serial testing, correl ation with other clinical findings, and supplementa l testing (if available) should be taken into cons ideration when interpreti ng the results.Perform ed at:[facility] [id number], [place], [place] [address] [facility] [id number] 12:58:27 Test Item Value Reference Range Interpretation Comments POC Crea (test 1.2 mg/dL 0.6-1.3 Medications, code = 95992-4) especially hydroxyurea or supplements, han ch as [...] which contains microfabricated sensors, a calibration che [employer], fluidics system , and a waste chamber . Each test cartridge contains chemic ally sensitive biose nsors on a TechLoaner ip that are config ured to perform spec ific tests. The microfabricated sensors measure analyte concent ration by an electroch emical assay. POC eGFR-AA (test 70 See_Comment Normal eGF R >= 60 code = 04166-7) mL/min/1.73 m2 The eGFR is calcula mary [...] eve lysis) [Automated mes vasquez] The system openPeople generated this result transmitted ref erence range: >=60 mL/min/1.73 m2. The reference range was not used to int erpret this result as normal/abnormal . POC eGFR-JOSELITO 60 See_Comment Normal eGFR >= 60 (test code = mL/min/1.73 m2 The 46680-1) eGFR is calcula mary using the CKD-E [...] f ailure <15 (or eve lysis) [Automated Mobi Rider] The system openPeople generated this result transmitted ref erence range: >=60 mL/min/1.73 m2. The reference range was not used to int erpret this result as normal/abnormal . POC Clean Dev Yes (test code = 6672) Performing Lab Radiology [facility] Radiology [facility] (test code = [facility] [address]) MD [facility], [address], [place], [place] [address]; Point of Care L ab Director: MD MD Jose E Bedoya
[2021-09-28 16:13] LABS: BUN Blood Urea Nitrogen 16 mg/dL (7-18); Bicarbonate 33 mmol/L (21-32); Glucose Level 147 mg/dL (74-106); Sodium Level 130 mmol/L (136-145); Troponin High Sensitivity 8.4 pg/mL (<58.9)
[2021-09-28 16:14] LABS: Potassium 5.3 mmol/L (3.5-5.1)
[2021-09-28] MEDS ORDERED: LEVALBUTEROL 1.25 MG/3 ML NEB ONE (16:17)
[2021-09-28] MEDS ORDERED: METHYLPREDNISOLONE 125 MG INJ ONE (16:17)
--- NOTE | 2021-09-28 16:20 | RAD REPORT ---
EXAM DESCRIPTION: Garry Single View09/28/2021 3:56 pm CLINICAL HISTORY: sob COMPARISON: September 16, 2021 FINDINGS: The lungs appear clear of acute infiltrate. The heart is normal size IMPRESSION: No acute abnormalities displayed
[2021-09-28 17:33] LABS: Absolute Lymphocytes (CBC) 0.8 K/uL (0.7-4.9); Hematocrit 29.7 % (39.6-49.0); Lymphocytes % 27.9 % (15.3-44.8); MPV 8.6 fL (7.6-11.3); RBC Red Blood Cell Count 3.59 M/uL (4.33-5.43)
[2021-09-28] MEDS ORDERED: NA CHLORIDE 0.9% 500 ML ONE (17:42)
[2021-09-28 18:50] LABS: Blood Morphology Comment NOT SEEN (NOT SEEN); Platelet Estimate DECR; White Blood Cell Scan OK (OK)
[2021-09-28 19:48] LABS: BUN Blood Urea Nitrogen 15 mg/dL (7-18); Bicarbonate 29 mmol/L (21-32); Glucose Level 129 mg/dL (74-106); Potassium 4.5 mmol/L (3.5-5.1); Sodium Level 131 mmol/L (136-145)
--- NOTE | 2021-09-28 20:09 | ER ---
Nurse's Notes [facility] Name: Roland Lam Age: 71 yrs Sex: Male : 1950 Arrival Date: 09/28/2021 Time: 14:44 Bed 14 Private MD: Alanna Bullard Diagnosis: COPD/ Chronic obstructive pulmonary disease with (acute) exacerbation;Hyperkalemia;Hypo-osmolality and hyponatremia Presentation: 09/28 15:01 Chief complaint: Patient states: SOB for 1 day. No fever. Coronavirus screen: Vaccine ll1 status: Patient reports receiving the 2nd dose of the covid vaccine. Client denies travel out of the [place] in the last 14 days. difficulty breathing, shortness of breath, Client presents with at least one sign or symptom that may indicate coronavirus-19. Standard/surgical mask placed on the client. Ebola Screen: Patient denies travel to an Ebola-affected area in the 21 days before illness onset. Initial Sepsis Screen: Does the patient meet any 2 criteria? No. Patient's initial sepsis screen is negative. Does the patient have a suspected source of infection? Yes: Productive cough/pneumonia. Risk Assessment: Do you want to hurt yourself or someone else? Patient reports no desire to harm self or others. Onset of symptoms was September 27, 2021. 15:01 Method Of Arrival: Ambulatory ll1 15:01 Acuity: HOWARD 3 ll1 Triage Assessment: 15:02 General: Appears ill, Behavior is cooperative, appropriate for age. Pain: Complains of ll1 pain in chest Quality of pain is described as pressure. Respiratory: Reports shortness of breath labored breathing pain with respiration Onset: The symptoms/episode began/occurred yesterday, the patient has moderate shortness of breath. Historical: - Allergies: 15:01 No Known Allergies; ll1 - PMHx: 15:01 COPD; Diabetes - NIDDM; CAD; High Cholesterol; THROAT CA; ll1 - Immunization history:: Client reports receiving the 2nd dose of the Covid vaccine. - Social history:: Smoking status: Patient reports the use of cigarette tobacco products, smokes one-half pack cigarettes per day. Screenin:25 Abuse screen: Denies threats or abuse. Denies injuries from another. Nutritional ph screening: No deficits noted. Tuberculosis screening: No symptoms or risk factors identified. Fall Risk None identified. Assessment: 15:45 General: Appears in no apparent distress. comfortable, slender, well groomed, Behavior ph is calm, cooperative, appropriate for age, Denies fever, feeling ill. Pain: Denies pain. Neuro: Level of Consciousness is awake, alert, obeys commands, Oriented to person, place, time, situation. Cardiovascular: Capillary refill < 3 seconds in bilateral fingers. Respiratory: Reports shortness of breath at rest Airway is patent Respiratory effort is even, unlabored, Respiratory pattern is regular, symmetrical, Breath sounds are clear bilaterally. GI: No signs and/or symptoms were reported involving the gastrointestinal system. Derm: Skin is intact, Skin is pink, warm \T\ dry. Musculoskeletal: Circulation, motion, and sensation intact. Range of motion: intact in all extremities. 16:34 Reassessment: Patient appears in no apparent distress at this time. Patient and/or ph family updated on plan of care and expected duration. Pain level reassessed. Patient is alert, oriented x 3, equal unlabored respirations, skin warm/dry/pink. 17:23 Reassessment: Patient appears in no apparent distress at this time. Patient and/or ph family updated on plan of care and expected duration. Pain level reassessed. Patient is alert, oriented x 3, equal unlabored respirations, skin warm/dry/pink. Charge nurse at bedside for IV start. 18:34 Reassessment: Patient appears in no apparent distress at this time. Patient and/or ph family updated on plan of care and expected duration. Pain level reassessed. Patient is alert, oriented x 3, equal unlabored respirations, skin warm/dry/pink. Repeat CMP sent after fluid bolus, awaiting results. 19:30 Reassessment: Patient appears in no apparent distress at this time. Patient resting, lp1 eyes closed, respirations even; Aware of waiting for repeat lab results. 19:30 Neuro: Level of Consciousness is alert, obeys commands. Cardiovascular: Patient's skin lp1 is warm and dry. Respiratory: Respiratory effort is even. Derm: Skin is intact, Skin is dry, Skin is pale. Vital Signs: 15:01 BP 121 / 53; Pulse 77; Resp 18; Temp 98.1; Pulse Ox 98% on R/A; Weight 58.97 kg; Height ll1 5 ft. 6 in. (167.64 cm); Pain 4/10; 16:34 BP 132 / 52; Pulse 70; Resp 18; Pulse Ox 100% on Nebulizer Mask; ph 17:22 BP 139 / 50; Pulse 74; Resp 18; Pulse Ox 97% on R/A; ph 17:43 BP 139 / 50; Pulse 76; Resp 18; Pulse Ox 94% on R/A; ph 18:34 BP 143 / 54; Pulse 75; Resp 18; Pulse Ox 98% on R/A; ph 19:15 BP 138 / 73; Pulse 77; Resp 19; Pulse Ox 93% on R/A; lp1 20:00 BP 137 / 69; Pulse 85; Resp 20; Pulse Ox 93% on R/A; lp1 15:01 Body Mass Index 20.98 (58.97 kg, 167.64 cm) ll1 ED Course: 14:44 Patient arrived in ED. mr 14:44 Alanna Bullard MD is Private Physician. mr 14:49 Aaron Jaramillo MD is Attending Physician. kdr 14:51 Arm band placed on Patient placed in an exam room, on a stretcher. ph 15:02 Triage completed. ll1 15:15 Heidi Whitt, RN is Primary Nurse. ph 15:17 Troponin HS Sent. mh5 15:17 CBC with Diff Sent. mh5 15:17 Basic Metabolic Panel Sent. mh5 15:35 Missed attempt(s): 22 gauge in right forearm. Bleeding controlled, band aid applied, ph catheter tip intact. 15:58 XRAY Chest (1 view) In Process Unspecified. EDMS 16:24 Patient has correct armband on for positive identification. Placed in gown. Bed in low ph position. Call light in reach. Pulse ox on. NIBP on. Door closed. Noise minimized. Pillow given. 17:38 Inserted saline lock: 22 gauge in left upper arm, using aseptic technique. ss 20:08 Alanna Bullard MD is Referral Physician. kdr 20:38 No provider procedures requiring assistance completed. IV discontinued, No lp1 redness/swelling at site. Pressure dressing applied. Administered Medications: 16:22 Drug: Xopenex (levalbuterol) (3) 1.25 mg Route: Inhalation; ph 18:33 Follow up: Response: No adverse reaction ph 17:42 Drug: SOLU-Medrol (methylPrednisoLONE) 125 mg Route: IVP; Site: left upper arm; ph 18:33 Follow up: Response: No adverse reaction ph 17:42 Drug: NS 0.9% 500 ml Route: IV; Rate: bolus; Site: left upper arm; ph 18:33 Follow up: Response: No adverse reaction; IV Status: Completed infusion; IV Intake: ph 500ml Intake: 18:33 IV: 500ml; Total: 500ml. ph Outcome: 20:09 Discharge ordered by . kdr 20:38 Discharged to home ambulatory, with family. lp1 20:38 Condition: good 20:38 Discharge instructions given to patient, Instructed on discharge instructions, follow up and referral plans. medication usage, Demonstrated understanding of instructions, follow-up care, medications, Prescriptions given X 2. 20:39 Patient left the ED. lp1 Signatures: Dispatcher [employer] EDMS Aaron Jaramillo MD MD kdr Rivera, Yamilex StewartMaame, KWAN RN Aga ePrez RN RN lp1 Heidi Whitt RN RN [facility] Skip Polk RN RN 1
--- NOTE | 2021-09-28 20:09 | EDPHYS ---
Physician Documentation [facility] Name: Roland Lam Age: 71 yrs Sex: Male : 1950 Arrival Date: 09/28/2021 Time: 14:44 Bed 14 Private MD: Alanna Bullard ED Physician Aaron Jaramillo HPI: 09/28 15:39 This 71 yrs old Male presents to ER via Ambulatory with complaints of Shortness Of kdr Breath. 15:39 The patient has shortness of breath at rest, with light activity. Onset: The kdr symptoms/episode began/occurred gradually, yesterday. Duration: The symptoms are continuous, and are steadily getting worse. The patient's shortness of breath is aggravated by coughing, exertion, light activity. Associated signs and symptoms: Pertinent positives: This patient does not have any pertinent positive signs or symptoms associated with shortness of breath. non-productive cough, Pertinent negatives: diaphoresis, dizziness, fever, hemoptysis, loss of consciousness, nausea, numbness in extremities, visual changes, vomiting. Severity of symptoms: At their worst the symptoms were mild in the emergency department the symptoms are unchanged. The patient has experienced similar episodes in the past, multiple times. The patient has been recently seen by a physician: The patient has been recently been admitted at [facility], was discharged last week. Patient was recently discharged from the hospital after a 6-day stay. He was discharged on about the 10th of this month. Since yesterday he had increasing shortness of breath but denies any other associated symptoms other than dry cough. Presentation his saturations are 98 to 99% on room air. Respiratory rate is 18. His vital signs are otherwise stable.. Historical: - Allergies: 15:01 No Known Allergies; ll1 - PMHx: 15:01 COPD; Diabetes - NIDDM; CAD; High Cholesterol; THROAT CA; ll1 - Immunization history:: Client reports receiving the 2nd dose of the Covid vaccine. - Social history:: Smoking status: Patient reports the use of cigarette tobacco products, smokes one-half pack cigarettes per day. ROS: 20:26 Constitutional: Negative for fever, chills, and weight loss, Eyes: Negative for injury, kdr pain, redness, and discharge, ENT: Negative for injury, pain, and discharge, Neck: Negative for injury, pain, and swelling, Cardiovascular: Negative for chest pain, palpitations, and edema, Abdomen/GI: Negative for abdominal pain, nausea, vomiting, diarrhea, and constipation, Back: Negative for injury and pain, : Negative for injury, bleeding, discharge, and swelling, MS/Extremity: Negative for injury and deformity, Skin: Negative for injury, rash, and discoloration, Neuro: Negative for headache, weakness, numbness, tingling, and seizure activity. Psych: Negative for depression, anxiety, suicide ideation, homicidal ideation, and hallucinations, Allergy/Immunology: Negative for hives, rash, and allergies, Endocrine: Negative for neck swelling, polydipsia, polyuria, polyphagia, and marked weight changes, Hematologic/Lymphatic: Negative for swollen nodes, abnormal bleeding, and unusual bruising. 20:26 Respiratory: Positive for cough, with no reported sputum, dyspnea on exertion, shortness of breath, at rest. Exam: 20:26 Constitutional: This is a well developed, well nourished patient who is awake, alert, kdr and in no acute distress. Head/Face: Normocephalic, atraumatic. Eyes: Pupils equal round and reactive to light, extra-ocular motions intact. Lids and lashes normal. Conjunctiva and sclera are non-icteric and not injected. Cornea within normal limits. Periorbital areas with no swelling, redness, or edema. Neck: Trachea midline, no thyromegaly or masses palpated, and no cervical lymphadenopathy. Supple, full range of motion without nuchal rigidity, or vertebral point tenderness. No Meningismus. Chest/axilla: Normal chest wall appearance and motion. Nontender with no deformity. No lesions are appreciated. Cardiovascular: Regular rate and rhythm with a normal S1 and S2. No gallops, murmurs, or rubs. Normal PMI, no JVD. No pulse deficits. Abdomen/GI: Soft, non-tender, with normal bowel sounds. No distension or tympany. No guarding or rebound. No evidence of tenderness throughout. Back: No spinal tenderness. No costovertebral tenderness. Full range of motion. MS/ Extremity: Pulses equal, no cyanosis. Neurovascular intact. Full, normal range of motion. Neuro: Awake and alert, GCS 15, oriented to person, place, time, and situation. Cranial nerves II-XII grossly intact. Motor strength 5/5 in all extremities. Sensory grossly intact. Cerebellar exam normal. Normal gait. Psych: Awake, alert, with orientation to person, place and time. Behavior, mood, and affect are within normal limits. 20:26 Respiratory: the patient does not display signs of respiratory distress, Respirations: normal, labored breathing, that is mild, Breath sounds: rales, + upper airway congestion. wheezing: Vital Signs: 15:01 BP 121 / 53; Pulse 77; Resp 18; Temp 98.1; Pulse Ox 98% on R/A; Weight 58.97 kg; Height ll1 5 ft. 6 in. (167.64 cm); Pain 4/10; 16:34 BP 132 / 52; Pulse 70; Resp 18; Pulse Ox 100% on Nebulizer Mask; ph 17:22 BP 139 / 50; Pulse 74; Resp 18; Pulse Ox 97% on R/A; ph 17:43 BP 139 / 50; Pulse 76; Resp 18; Pulse Ox 94% on R/A; ph 18:34 BP 143 / 54; Pulse 75; Resp 18; Pulse Ox 98% on R/A; ph 19:15 BP 138 / 73; Pulse 77; Resp 19; Pulse Ox 93% on R/A; lp1 20:00 BP 137 / 69; Pulse 85; Resp 20; Pulse Ox 93% on R/A; lp1 15:01 Body Mass Index 20.98 (58.97 kg, 167.64 cm) ll1 MDM: 20:09 Patient medically screened. kdr 20:26 Data reviewed: vital signs, nurses notes, lab test result(s), radiologic studies. kdr Counseling: I had a detailed discussion with the patient and/or guardian regarding: the historical points, exam findings, and any diagnostic results supporting the discharge/admit diagnosis, lab results, radiology results, the need for outpatient follow up. 09/28 14:49 Order name: Basic Metabolic Panel; Complete Time: 17: kdr 09/28 14:49 Order name: CBC with Diff; Complete Time: 19:39 kdr 09/28 14:49 Order name: Troponin HS; Complete Time: 17: kdr 09/28 14:49 Order name: XRAY Chest (1 view); Complete Time: 17:01 kdr 09/28 17:05 Order name: Chem 7: Repeat when bolus complete; Complete Time: 20:07 kdr 09/28 18:51 Order name: CBC Smear Scan; Complete Time: 19:39 EDMS 09/28 14:49 Order name: EKG; Complete Time: 14:50 [facility] 09/28 14:49 Order name: Cardiac monitoring; Complete Time: 14:54 [facility] 09/28 14:49 Order name: EKG - Nurse/Tech; Complete Time: 14:54 [facility] 09/28 14:49 Order name: IV Saline Lock; Complete Time: 17:42 [facility] 09/28 14:49 Order name: Labs collected and sent; Complete Time: 15:17 [facility] 09/28 14:49 Order name: O2 Per Protocol; Complete Time: 14:54 [facility] 09/28 14:49 Order name: O2 Sat Monitoring; Complete Time: 14:54 [facility] 09/28 15:51 Order name: Labs - recollect needed: recollect lavender top; Complete Time: 17:23 bd Administered Medications: 16:22 Drug: Xopenex (levalbuterol) (3) 1.25 mg Route: Inhalation; ph 18:33 Follow up: Response: No adverse reaction ph 17:42 Drug: SOLU-Medrol (methylPrednisoLONE) 125 mg Route: IVP; Site: left upper arm; ph 18:33 Follow up: Response: No adverse reaction ph 17:42 Drug: NS 0.9% 500 ml Route: IV; Rate: bolus; Site: left upper arm; ph 18:33 Follow up: Response: No adverse reaction; IV Status: Completed infusion; IV Intake: ph 500ml Disposition Summary: 09/28/21 20:09 Discharge Ordered Location: Home kdr Problem: an acute exacerbation kdr Symptoms: have improved kdr Condition: Stable kdr Diagnosis - COPD/ Chronic obstructive pulmonary disease with (acute) exacerbation kdr - Hyperkalemia kdr - Hypo-osmolality and hyponatremia kdr Followup: kdr - With: Alanna Bullard MD - When: 2 - 3 days - Reason: If symptoms return, Further diagnostic work-up, Recheck today's complaints, Continuance of care, Re-evaluation by your physician Discharge Instructions: - Discharge Summary Sheet kdr - Hyperkalemia, [id number] kdr - Hyponatremia kdr - Chronic Obstructive Pulmonary Disease Exacerbation kdr Forms: - Medication Reconciliation Form kdr - Thank You Letter kdr Prescriptions: - Medrol (Keagan) 4 mg Oral Tablets, Dose Pack - take 1 tablet by ORAL route as directed - follow package instructions; 1 kdr packet; Refills: 0, Product Selection Permitted - Albuterol Sulfate 2.5 mg /3 mL (0.083 %) Inhalation Solution for Nebulization - inhale 2 unit by NEBULIZATION route every 4-6 hours As needed; 3 box; Refills: kdr 0, Product Selection Permitted Signatures: Dispatcher [employer] EDMS Rebecca Colón Kevin, MD MD kdr Heidi Whitt RN RN [facility] RN ll1 Corrections: (The following items were deleted from the chart) 18:21 17:05 BASIC METABOLIC PANEL+[id number].[email or web address].BRZ ordered. EDMS EDMS
[2021-09-28 20:46] VITALS: TEMP 98.1
[2021-09-28 20:51] VITALS: BP 143/54; O2SAT 98
== END 2021-09-28 20:39 | disposition home or self-care (01) ==
LOC: ER 14:42
DX: J44.1 Chronic obstructive pulmonary disease with (acute) exacerbation (principal); E87.6 Hypokalemia; E87.1 Hypo-osmolality and hyponatremia; E11.9 Type 2 diabetes mellitus without complications; E78.00 Pure hypercholesterolemia, unspecified; F17.210 Nicotine dependence, cigarettes, uncomplicated; Z85.819 Personal history of malignant neoplasm of unspecified site of lip, oral cavity, and pharynx
CPT/HCPCS: 96361; 85025; 80048 ×2; 36415; 84484; 71045; 96374; 99284; J7040; J2930

== ENCOUNTER 2021-09-30 16:19 | Emergency (ER) | payer OTHER ==
--- OUTSIDE RECORDS SUMMARY | 2021-09-30 16:26 | XMS REPORT | Clinical Summary ---
:1950 Author Organization [facility] MD [facility] Address [address] [place] [address] Care Team Providers Name Role Phone Olivia Coleman DO Unavailable Slava Canseco MD Primary Care Provider MD Thang Unavailable Samantha Polk MD Unavailable Nirmal Davenport RD Unavailable Laurie Maurer DOCUMENT REVIEWER Unavailable Hilario Lam MD Unavailable Joesph Payan [...] Active (PREVIDENT) 1.1 % twice daily. dental [place] teeth with creamIndications: cream and spit out [...] 1-2 tablets by 240 tablet 0 Active ([place]) 5 mg-325 mg per mouth every 8 [...] Encounters Date Type Specialty Care Team Description 09/28/2021 Nutrition Nutrition Slava Canseco MD Coleman, Timothy, RD 09/26/2021 Documentation Nutrition Adele Christensen 09/23/2021 Hospital Encounter Head and Neck Ene Polk Primary squamous cell carcinoma of larynx (Primary Dx); Surgery MD Samantha Abnormal findin gs on diagnostic imaging of skull and head, not elsewhere classified 09/23/2021 Hospital Encounter Radiology Ene Polk M, MD oropharyngeal phase Roberta Ortega, [facility]-PINKED EDGE SEWING MACHINE OPERATOR 09/23/2021 Travel 09/22/2021 Orders Only Nutrition Ethel, [...] la rynx 09/21/2021 Documentation Nutrition Camilla Davenport, ANDRÉS 09/21/2021 Travel 09/20/2021 Hospital Encounter Vascular Access Slava Canseco and Procedures MD Loy Romero Craig S, CLINICAL LABORATORY TECHNOLOGIST 09/20/2021 Hospital Encounter Radiology Rj, Primary s [...] (Primary Dx) 09/20/2021 Telephone Proton Therapy Wayne Castro RN 09/20/2021 Travel 09/16/2021 Orders Only Gastroenterology Caprice Garcia Personal hi story of , Hepatology & OUMAR Holm colonic polyp (Primary Nutrition Dx) 09/15/2021 Orders Only Proton Therapy Rj, Primary squam ous cell Alexandra, PA carcinoma of la rynx (Primary Dx) 09/15/2021 Telephone Proton Therapy Wayne Castro RN 09/08/2021 Documentation Head and Neck Clemons, Surgery Huan H 09/07/2021 Nutrition Nutrition Slava Canseco MD Ruzensky, Debra A, ANDRÉS 09/07/2021 Documentation Speech Pathology Kita Campos, CCC-PINKED EDGE SEWING MACHINE OPERATOR 09/07/2021 Documentation Speech Pathology Crista Connolly CCC-PINKED EDGE SEWING MACHINE OPERATOR 09/07/2021 Orders Only Head and Neck Erasto, 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); Medical Oncology Anca Sullivan APN Dysphagia , oropharyngeal phase 09/06/2021 Hospital Encounter Speech Pathology Antonella De La Rosa led (Patient OUMAR Morris Request) Crista Connolly CCC-PINKED EDGE SEWING MACHINE OPERATOR 09/06/2021 Documentation Speech Pathology Crista Connolly, CCC-PINKED EDGE SEWING MACHINE OPERATOR 09/06/2021 Documentation Speech Pathology Crista Connolly, CCC-PINKED EDGE SEWING MACHINE OPERATOR 09/05/2021 Nutrition Nutrition Slava Canseco MD Ruzensky, Debra A, ANDRÉS 09/05/2021 Telephone Nutrition Camilla Davenport, RD 09/02/2021 Telephone Radiation Rj, OUMAR Cortes 09/01/2021 Telephone April Wylie Discharge Cal l RN 08/31/2021 Orders Only Gastroenterology Michael Lam , Hepatology & DManuel, Nutrition 08/30/2021 Orders Only Speech Pathology Caprice Nolen M, CCC-PINKED EDGE SEWING MACHINE OPERATOR oropharyngeal p hase (Primary Dx) 08/29/2021 Anesthesia Event Endoscopy Sara Deras, Zach Knox, KAREEN 08/29/2021 Surgery Endoscopy Michael Lam DIAGNOSTIC UPP VINCE Rich, GASTROINTOSMIN Mcintosh ENDOSCOPY 08/26/2021 Prep for Surgery Gastroenterology Harman, Elizabeth, Iron de ficiency , Hepatology & TELEGRAPH MESSENGER anemia, not o therwise Nutrition specified (Prim [...] larynx 08/25/2021 Documentation Speech Pathology Sara Lim, CCC-PINKED EDGE SEWING MACHINE OPERATOR 08/25/2021 Telephone Proton Therapy Wayne Castro RN [...] OUMAR Morris carcinoma of larynx Rebecca Brown, CCC-PINKED EDGE SEWING MACHINE OPERATOR 08/22/2021 Orders Only Radiation Rj, 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); Oncology OUMAR Morris Aspiration pneu monia 08/22/2021 Orders Only Head and Neck Erasto, Aspiration pne umonia (Primary Dx); Medical Oncology Anca Sullivan APN Primary s quamous cell carcinoma of larynx 08/22/2021 Travel 08/20/2021 Clinical Support Andres Rj, Suspected C OVID-19 (Primary Dx); OUMAR Morris [...] 08/08/2021 Documentation Head and Neck Clemons, Surgery [facility] 08/02/2021 Nutrition Nutrition Slava Canseco Primary squamou s cell MD Nick carcinoma of larynx Camilla Davenport RD 08/02/2021 Documentation Nutrition Adele Christensen 08/02/2021 Orders Only Nutrition Ethel, Primary squamou s [...] 07/25/2021 Documentation Head and Neck Clemons, Surgery [facility] 07/25/2021 Refill Proton Therapy Slava Canseco 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 Nick radiation 07/19/2021 Nutrition Nutrition Slava Canseco MD Ruzensky, Debra A, RD 07/15/2021 Telephone Proton Therapy Wayne Castro, RN 07/13/2021 Telemedicine Head and Neck Yumi Desir, Primary squa mous cell Medical Oncology MD carcinoma of larynx Erasto, Anca Sullivan DOCUMENT REVIEWER 07/13/2021 Telephone Thoracic Erasto, Medicine Anca Sullivan APN 07/13/2021 Orders Only Head and Neck Yumi Desir, Medical Oncology 07/12/2021 Orders Only Head and Neck Eliza Booth, Primary squamo cell Medical environmental sampler carcinoma o f larynx (Primary Dx) 07/08/2021 Hospital Encounter GIM/Phase 1 Josette Vasquez, Primary squamous cell carcinoma of larynx (Primary Dx); - MD Syncope; 07/12/2021 Eugene, Hypokalemia; Madelin Hypomagnesemia; MD Maryse Pneumonia; [place]-Oyng Severe protei n-calorie malnutrition, not otherwise specified; [...] Head and Neck Slava Canseco Primary squamo cell Medical Oncology MD Nick carcinoma of larynx ErastoAnca jalloh, DOCUMENT REVIEWER 07/06/2021 Hospital Encounter Vascular Access Slava Canseco and Procedures MD Leela Romero Bhumarat S, RN 07/06/2021 Hospital Encounter Proton Therapy Slava Canseco MD 07/06/2021 Hospital Encounter Proton Therapy Slava Canseco MD 07/06/2021 Orders Only Proton Therapy Rj, Primary squam ous cell OUMAR Morris carcinoma of la rynx (Primary Dx) 07/06/2021 Orders Only Proton Therapy Lindaodmoira, Primary squam ous cell Wayne Singh RN [...] specified 07/01/2021 Documentation Speech Pathology Crista Connolly, CCC-PINKED EDGE SEWING MACHINE OPERATOR 07/01/2021 Telephone Radiation Andring, Oncology Caprice Antonio [...] squamo us cell Medical Oncology Anca Sullivan DOCUMENT REVIEWER carcinoma of larynx (Primary Dx) 06/22/2021 Emergency [...] rynx 06/20/2021 Travel 06/17/2021 Hospital Encounter Proton Slava Landa MD 06/17/2021 Orders Only Head and Neck [...] carcinoma of laryn x Erasto, Anca Sullivan, DOCUMENT REVIEWER 06/15/2021 Hospital Encounter Speech Pathology Ene Polk M, MD oropharyngeal phase Christy Chavez, [facility]-PINKED EDGE SEWING MACHINE OPERATOR 06/15/2021 Hospital Encounter Proton Therapy Slava Canseco MD 06/15/2021 Hospital Encounter Proton Therapy Slava Canseco MD 06/15/2021 Documentation Proton Therapy Nancy, Maame Jamil RD 06/15/2021 Orders Only Radiation Slava Canseco [...] OUMAR Morris carcinoma of larynx Crista Connolly, CCC-PINKED EDGE SEWING MACHINE OPERATOR 06/08/2021 Office Visit Head and Neck Yumi Desir, 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); Medical Oncology Swallowing painful; Serum creatinin e raised; Hypomagnesemia 06/08/2021 Documentation Proton Therapy Maame Cruz RD 06/08/2021 Travel 06/07/2021 Hospital Encounter Proton Slava Landa MD 06/07/2021 Travel 06/06/2021 Hospital Encounter Proton Slava Landa MD 06/06/2021 Hospital Encounter Infusion Yumi Desir, [...] Slava Canseco MD 06/02/2021 Documentation Radiation GardenRomeo MD 06/02/2021 Travel 06/01/2021 Office Visit Head and Neck [place] squamo us cell carcinoma of larynx (Primary Dx); Medical Oncology MD Brenda Encounter f or antineoplastic chemotherapy 06/01/2021 Hospital Encounter Proton Therapy Yue Stahl MD Lee, Anna, MD 06/01/2021 Hospital Encounter Proton Therapy Slava Canseco MD 06/01/2021 Travel 05/31/2021 Hospital Encounter Proton Slava Landa MD 05/31/2021 Nutrition Nutrition Slava Canseco MD Nancy, Maame Jamil, ANDRÉS 05/31/2021 Hospital Encounter Proton Therapy Slava Canseco MD 05/31/2021 Travel 05/30/2021 Infusion Infusion Yumi Desir, Primary squam ous cell Services carcinoma of larynx Cole Rosenthal, (Primary Dx) RN 05/30/2021 Hospital Encounter Proton Slava Landa MD 05/30/2021 Hospital Encounter Lab Yumi Desir [...] OUMAR Morris carcinoma of larynx Cady Zuleta, [facility]-PINKED EDGE SEWING MACHINE OPERATOR 05/18/2021 Travel 05/16/2021 Hospital Encounter Proton Therapy [...] Encounter Dental Oncology Yobany Jovel ter for ElvaRANDYS observation for other suspected disea se ruled [...] 05/06/2021 Travel 05/05/2021 Orders Only Dental Oncology Alduraibluis, Encounter fo r Dixie observation for other MD Vadim suspected disea se ruled out (Prim tisha Dx) 05/04/2021 Hospital Encounter Proton Therapy Slava Canseco Primary squamous cell MD Nick carcinoma of la rynx (Primary Dx) 05/04/2021 Clinical Support Andres De La Rosa, Suspected C OVID-19 (Primary Dx); OUMAR Morris Primary squamous cell carcinoma of laryn x Trixie Hollingsworth, KWAN 05/04/2021 Hospital Encounter Lab Yumi Desir, Primary [...] Steve Munguia MD Xu, Ya, MD after 09/30/2020 Immunizations Name Administration Dates Next Due Moderna SARS-CoV-2 Booster Vaccination (50 mcg/0.25 04/16/20 21 mL) Moderna SARS-CoV-2 Vaccination 08/07/2020, 07/10/2020 Surgical History Surgery Date Site/Laterality Comments CHOLECYSTECTOMY FEMORAL ARTERY STENT Left Left leg [place] ESOPHAGOGASTRODUODENOSCOPY 08/29/2021 Esophagus/N/A Pr ocedure: DIAGNOSTIC TRANSORAL DIAGNOSTIC UPPER GASTR OINTESTINAL ENDOSCOPY; Surg jay: Michael D. 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 Job Start Date Occupation Industry Not on file Not on file Not on file Travel History Travel Start Travel End [place] 04/28/2021 05/01/2021 COVID-19 Exposure Response Date Recorded [...] 10/11/2021 Appointment Speech Pathology Ene Polk MD [address] [place] [address] Kita Campos, [facility]-PINKED EDGE SEWING MACHINE OPERATOR [address] [place] [address] 10/28/2021 Ancillary Procedure Radiology Oralia Duong, PA [address] [place], [place] [address] (Rosario rk) 10/28/2021 Appointment Head and Neck Surgery Cipriano Polk MD [address] [place], [place] [address] (Rosario rk) 06/26/2022 Appointment Radiology Ene Polk MD [address] [place], [place] [address] (Rosario valdes) Health Maintenance Due Date Last Done Comments COVID-19 Vaccination (3 - Moderna 05/14/2021 04/16/2021, , risk 4-dose series) 07/10/2020 Implants Implanted Type Area Court Liaison Device Identifier Shelf Exp iration Model / [...] FOR Routine 08/25/2021 4:47 R esults for [employer] FIELD COORDINATOR PM CDT this procedure are in the [...] Routine 07/12/2021 5:42 Resul ts for PM DENTAL PRACTICE MANAGER this procedure are in the results section. CALCIUM LEVEL TOTAL Routine 07/12/2021 3:09 Resu lts for PM DENTAL PRACTICE MANAGER this procedure are in the results section. .GLOMERULAR FILTRATION Routine 07/12/2021 3:09 R esults for RATE PM DENTAL PRACTICE MANAGER this procedure are in the results section. SERUM CREATININE Routine 07/12/2021 3:09 Results for PM DENTAL PRACTICE MANAGER this procedure are in the results section. ELECTROLYTE PANEL Routine 07/12/2021 3:09 Result s for PM DENTAL PRACTICE MANAGER this procedure are in the results section. BLOOD UREA NITROGEN Routine 07/12/2021 3:09 Resu lts for PM DENTAL PRACTICE MANAGER this procedure are in the results section. GLUCOSE LEVEL Routine 07/12/2021 3:09 Results fo r PM DENTAL PRACTICE MANAGER this procedure are in the results section. PHOSPHORUS LEVEL Routine 07/12/2021 3:09 Results for PM DENTAL PRACTICE MANAGER this procedure are in the results section. MAGNESIUM LEVEL Routine 07/12/2021 3:09 Results for PM DENTAL PRACTICE MANAGER this procedure are in the results section. BASIC METABOLIC PANEL, Routine 07/12/2021 3:09 CALCIUM TOTAL PM DENTAL PRACTICE MANAGER POC GLUCOSE SCREEN Routine 07/12/2021 1:45 Resul ts for PM DENTAL PRACTICE MANAGER this procedure are in the results section. POC GLUCOSE SCREEN Routine 07/12/2021 9:40 Resul ts for AM DENTAL PRACTICE MANAGER this procedure are in the results section. MANUAL DIFFERENTIAL AM 07/12/2021 1:56 Resu lts for AM DENTAL PRACTICE MANAGER this procedure are in the results section. Results CBC AM 07/12/2021 1:56 Results for AM DENTAL PRACTICE MANAGER this procedure are in the results section. CALCIUM LEVEL TOTAL Routine 07/12/2021 1:56 Resu lts for AM DENTAL PRACTICE MANAGER this procedure are in the results section. .GLOMERULAR FILTRATION Routine 07/12/2021 1:56 R esults for RATE AM DENTAL PRACTICE MANAGER this procedure are in the results section. SERUM CREATININE Routine 07/12/2021 1:56 Results for AM DENTAL PRACTICE MANAGER this procedure are in the results section. ELECTROLYTE PANEL Routine 07/12/2021 1:56 Result s for AM DENTAL PRACTICE MANAGER this procedure are in the results section. BLOOD UREA NITROGEN Routine 07/12/2021 1:56 Resu lts for AM DENTAL PRACTICE MANAGER this procedure are in the results section. GLUCOSE LEVEL Routine 07/12/2021 1:56 Results fo r AM DENTAL PRACTICE MANAGER this procedure are in the results section. PHOSPHORUS LEVEL Routine 07/12/2021 1:56 Results for AM DENTAL PRACTICE MANAGER this procedure are in the results section. MAGNESIUM LEVEL Routine 07/12/2021 1:56 Results for AM DENTAL PRACTICE MANAGER this procedure are in the results section. BASIC METABOLIC PANEL, Routine 07/12/2021 1:56 CALCIUM TOTAL AM DENTAL PRACTICE MANAGER COMPLETE BLOOD COUNT W/ AM 07/12/2021 1:56 DIFFERENTIAL AM DENTAL PRACTICE MANAGER POC GLUCOSE SCREEN Routine 07/11/2021 10:09 Resul ts for PM DENTAL PRACTICE MANAGER this procedure are in the results section. POC GLUCOSE SCREEN Routine 07/11/2021 8:52 Resul ts for PM DENTAL PRACTICE MANAGER this procedure are in the results section. POC GLUCOSE SCREEN Routine 07/11/2021 4:27 Resul ts for PM DENTAL PRACTICE MANAGER this procedure are in the results section. ECHOCARDIOGRAM 2D Routine 07/11/2021 4:16 Result s for COMPLETE PM DENTAL PRACTICE MANAGER this procedure are in the results section. CALCIUM LEVEL TOTAL Routine 07/11/2021 2:33 Resu lts for PM DENTAL PRACTICE MANAGER this procedure are in the results section. .GLOMERULAR FILTRATION Routine 07/11/2021 2:33 R esults for RATE PM DENTAL PRACTICE MANAGER this procedure are in the results section. SERUM CREATININE Routine 07/11/2021 2:33 Results for PM DENTAL PRACTICE MANAGER this procedure are in the results section. ELECTROLYTE PANEL Routine 07/11/2021 2:33 Result s for PM DENTAL PRACTICE MANAGER this procedure are in the results section. BLOOD UREA NITROGEN Routine 07/11/2021 2:33 Resu lts for PM DENTAL PRACTICE MANAGER this procedure are in the results section. GLUCOSE LEVEL Routine 07/11/2021 2:33 Results fo r PM DENTAL PRACTICE MANAGER this procedure are in the results section. PHOSPHORUS LEVEL Routine 07/11/2021 2:33 Results for PM DENTAL PRACTICE MANAGER this procedure are in the results section. MAGNESIUM LEVEL Routine 07/11/2021 2:33 Results for PM DENTAL PRACTICE MANAGER this procedure are in the results section. BASIC METABOLIC PANEL, Routine 07/11/2021 2:33 CALCIUM TOTAL PM DENTAL PRACTICE MANAGER POC GLUCOSE SCREEN Routine 07/11/2021 12:33 Resul ts for PM DENTAL PRACTICE MANAGER this procedure are in the results section. POC GLUCOSE SCREEN Routine 07/11/2021 8:52 Resul ts for AM DENTAL PRACTICE MANAGER this procedure are in the results section. CALCIUM LEVEL TOTAL Routine 07/11/2021 2:00 Resu lts for AM DENTAL PRACTICE MANAGER this procedure are in the results section. .GLOMERULAR FILTRATION Routine 07/11/2021 2:00 R esults for RATE AM DENTAL PRACTICE MANAGER this procedure are in the results section. SERUM CREATININE Routine 07/11/2021 2:00 Results for AM DENTAL PRACTICE MANAGER this procedure are in the results section. ELECTROLYTE PANEL Routine 07/11/2021 2:00 Result s for AM DENTAL PRACTICE MANAGER this procedure are in the results section. BLOOD UREA NITROGEN Routine 07/11/2021 2:00 Resu lts for AM DENTAL PRACTICE MANAGER this procedure are in the results section. GLUCOSE LEVEL Routine 07/11/2021 2:00 Results fo r AM DENTAL PRACTICE MANAGER this procedure are in the results section. PHOSPHORUS LEVEL Routine 07/11/2021 2:00 Results for AM DENTAL PRACTICE MANAGER this procedure are in the results section. MAGNESIUM LEVEL Routine 07/11/2021 2:00 Results for AM DENTAL PRACTICE MANAGER this procedure are in the results section. BASIC METABOLIC PANEL, Routine 07/11/2021 2:00 CALCIUM TOTAL AM DENTAL PRACTICE MANAGER MANUAL DIFFERENTIAL AM 07/11/2021 1:46 Resu lts for AM DENTAL PRACTICE MANAGER this procedure are in the results section. Results CBC AM 07/11/2021 1:46 Results for AM DENTAL PRACTICE MANAGER this procedure are in the results section. COMPLETE BLOOD COUNT W/ AM 07/11/2021 1:46 DIFFERENTIAL AM DENTAL PRACTICE MANAGER EKG, 12-LEAD (PORTABLE) Routine 07/11/2021 EKG, 12-LEAD (PORTABLE) STAT 07/11/2021 POC GLUCOSE SCREEN Routine 07/10/2021 9:45 Resul ts for PM DENTAL PRACTICE MANAGER this procedure are in the results section. POC GLUCOSE SCREEN Routine 07/10/2021 7:36 Resul ts for PM DENTAL PRACTICE MANAGER this procedure are in the results section. POC GLUCOSE SCREEN Routine 07/10/2021 4:26 Resul ts for PM DENTAL PRACTICE MANAGER this procedure are in the results section. CALCIUM LEVEL TOTAL Routine 07/10/2021 3:02 Resu lts for PM DENTAL PRACTICE MANAGER this procedure are in the results section. .GLOMERULAR FILTRATION Routine 07/10/2021 3:02 R esults for RATE PM DENTAL PRACTICE MANAGER this procedure are in the results section. SERUM CREATININE Routine 07/10/2021 3:02 Results for PM DENTAL PRACTICE MANAGER this procedure are in the results section. ELECTROLYTE PANEL Routine 07/10/2021 3:02 Result s for PM DENTAL PRACTICE MANAGER this procedure are in the results section. BLOOD UREA NITROGEN Routine 07/10/2021 3:02 Resu lts for PM DENTAL PRACTICE MANAGER this procedure are in the results section. GLUCOSE LEVEL Routine 07/10/2021 3:02 Results fo r PM DENTAL PRACTICE MANAGER this procedure are in the results section. PHOSPHORUS LEVEL Routine 07/10/2021 3:02 Results for PM DENTAL PRACTICE MANAGER this procedure are in the results section. MAGNESIUM LEVEL Routine 07/10/2021 3:02 Results for PM DENTAL PRACTICE MANAGER this procedure are in the results section. BASIC METABOLIC PANEL, Routine 07/10/2021 3:02 CALCIUM TOTAL PM DENTAL PRACTICE MANAGER POC GLUCOSE SCREEN Routine 07/10/2021 11:40 Resul ts for AM DENTAL PRACTICE MANAGER this procedure are in the results section. MANUAL DIFFERENTIAL AM 07/10/2021 6:09 Resu lts for AM DENTAL PRACTICE MANAGER this procedure are in the results section. Results CBC AM 07/10/2021 6:09 Results for AM DENTAL PRACTICE MANAGER this procedure are in the results section. CALCIUM LEVEL TOTAL Routine 07/10/2021 6:09 Resu lts for AM DENTAL PRACTICE MANAGER this procedure are in the results section. .GLOMERULAR FILTRATION Routine 07/10/2021 6:09 R esults for RATE AM DENTAL PRACTICE MANAGER this procedure are in the results section. SERUM CREATININE Routine 07/10/2021 6:09 Results for AM DENTAL PRACTICE MANAGER this procedure are in the results section. ELECTROLYTE PANEL Routine 07/10/2021 6:09 Result s for AM DENTAL PRACTICE MANAGER this procedure are in the results section. BLOOD UREA NITROGEN Routine 07/10/2021 6:09 Resu lts for AM DENTAL PRACTICE MANAGER this procedure are in the results section. GLUCOSE LEVEL Routine 07/10/2021 6:09 Results fo r AM DENTAL PRACTICE MANAGER this procedure are in the results section. TROPONIN T AM 07/10/2021 6:09 Results for AM DENTAL PRACTICE MANAGER this procedure are in the results section. PHOSPHORUS LEVEL Routine 07/10/2021 6:09 Results for AM DENTAL PRACTICE MANAGER this procedure are in the results section. MAGNESIUM LEVEL Routine 07/10/2021 6:09 Results for AM DENTAL PRACTICE MANAGER this procedure are in the results section. BASIC METABOLIC PANEL, Routine 07/10/2021 6:09 CALCIUM TOTAL AM DENTAL PRACTICE MANAGER COMPLETE BLOOD COUNT W/ AM 07/10/2021 6:09 DIFFERENTIAL AM DENTAL PRACTICE MANAGER POC GLUCOSE SCREEN Routine 07/09/2021 11:11 Resul ts for PM DENTAL PRACTICE MANAGER this procedure are in the results section. BLOOD UREA NITROGEN STAT 07/09/2021 10:35 Resu lts for PM DENTAL PRACTICE MANAGER this procedure are in the results section. CALCIUM IONIZED, VENOUS STAT 07/09/2021 10:35 Results for PM DENTAL PRACTICE MANAGER this procedure are in the results section. .GLOMERULAR FILTRATION STAT 07/09/2021 10:35 R esults for RATE PM DENTAL PRACTICE MANAGER this procedure are in the results section. SERUM CREATININE STAT 07/09/2021 10:35 Results for PM DENTAL PRACTICE MANAGER this procedure are in the results section. ELECTROLYTE PANEL STAT 07/09/2021 10:35 Result s for PM DENTAL PRACTICE MANAGER this procedure are in the results section. GLUCOSE LEVEL STAT 07/09/2021 10:35 Results fo r PM DENTAL PRACTICE MANAGER this procedure are in the results section. TROPONIN T STAT 07/09/2021 10:35 Results for PM DENTAL PRACTICE MANAGER this procedure are in the results section. PHOSPHORUS LEVEL STAT 07/09/2021 10:35 Results for PM DENTAL PRACTICE MANAGER this procedure are in the results section. MAGNESIUM LEVEL STAT 07/09/2021 10:35 Results for PM DENTAL PRACTICE MANAGER this procedure are in the results section. BASIC METABOLIC PANEL, STAT 07/09/2021 10:35 CALCIUM IONIZED PM DENTAL PRACTICE MANAGER LOWER RESPIRATORY Now 07/09/2021 5:33 Result s for CULTURE W/ GRAM STAIN PM DENTAL PRACTICE MANAGER this p rocedure are in the results section. POC GLUCOSE SCREEN Routine 07/09/2021 4:30 Resul ts for PM DENTAL PRACTICE MANAGER this procedure are in the results section. VASCULAR ACCESS Routine 07/09/2021 3:00 Results for ULTRASOUND PM DENTAL PRACTICE MANAGER this procedure are in the results section. CALCIUM LEVEL TOTAL Routine 07/09/2021 1:45 Resu lts for PM DENTAL PRACTICE MANAGER this procedure are in the results section. .GLOMERULAR FILTRATION Routine 07/09/2021 1:45 R esults for RATE PM DENTAL PRACTICE MANAGER this procedure are in the results section. SERUM CREATININE Routine 07/09/2021 1:45 Results for PM DENTAL PRACTICE MANAGER this procedure are in the results section. ELECTROLYTE PANEL Routine 07/09/2021 1:45 Result s for PM DENTAL PRACTICE MANAGER this procedure are in the results section. BLOOD UREA NITROGEN Routine 07/09/2021 1:45 Resu lts for PM DENTAL PRACTICE MANAGER this procedure are in the results section. GLUCOSE LEVEL Routine 07/09/2021 1:45 Results fo r PM DENTAL PRACTICE MANAGER this procedure are in the results section. PHOSPHORUS LEVEL Routine 07/09/2021 1:45 Results for PM DENTAL PRACTICE MANAGER this procedure are in the results section. MAGNESIUM LEVEL Routine 07/09/2021 1:45 Results for PM DENTAL PRACTICE MANAGER this procedure are in the results section. BASIC METABOLIC PANEL, Routine 07/09/2021 1:45 CALCIUM TOTAL PM DENTAL PRACTICE MANAGER OSCILLATORY PEP Routine 07/09/2021 1:21 PM DENTAL PRACTICE MANAGER OSCILLATORY PEP Routine 07/09/2021 1:21 PM DENTAL PRACTICE MANAGER OSCILLATORY PEP Routine 07/09/2021 1:21 PM DENTAL PRACTICE MANAGER POC GLUCOSE SCREEN Routine 07/09/2021 12:42 Resul ts for PM DENTAL PRACTICE MANAGER this procedure are in the results section. POC GLUCOSE SCREEN Routine 07/09/2021 8:56 Resul ts for AM DENTAL PRACTICE MANAGER this procedure are in the results section. MANUAL DIFFERENTIAL AM 07/09/2021 6:28 Resu lts for AM DENTAL PRACTICE MANAGER this procedure are in the results section. Results CBC AM 07/09/2021 6:28 Results for AM DENTAL PRACTICE MANAGER this procedure are in the results section. CALCIUM LEVEL TOTAL AM 07/09/2021 6:28 Resu lts for AM DENTAL PRACTICE MANAGER this procedure are in the results section. .GLOMERULAR FILTRATION AM 07/09/2021 6:28 R esults for RATE AM DENTAL PRACTICE MANAGER this procedure are in the results section. SERUM CREATININE AM 07/09/2021 6:28 Results for AM DENTAL PRACTICE MANAGER this procedure are in the results section. ELECTROLYTE PANEL AM 07/09/2021 6:28 Result s for AM DENTAL PRACTICE MANAGER this procedure are in the results section. BLOOD UREA NITROGEN AM 07/09/2021 6:28 Resu lts for AM DENTAL PRACTICE MANAGER this procedure are in the results section. GLUCOSE LEVEL AM 07/09/2021 6:28 Results fo r AM DENTAL PRACTICE MANAGER this procedure are in the results section. PHOSPHORUS LEVEL AM 07/09/2021 6:28 Results for AM DENTAL PRACTICE MANAGER this procedure are in the results section. MAGNESIUM LEVEL AM 07/09/2021 6:28 Results for AM DENTAL PRACTICE MANAGER this procedure are in the results section. COMPLETE BLOOD COUNT W/ AM 07/09/2021 6:28 DIFFERENTIAL AM DENTAL PRACTICE MANAGER BASIC METABOLIC PANEL, AM 07/09/2021 6:28 CALCIUM TOTAL AM DENTAL PRACTICE MANAGER TROPONIN T Routine 07/09/2021 6:28 Results for AM DENTAL PRACTICE MANAGER this procedure are in the results section. POC GLUCOSE SCREEN Routine 07/08/2021 10:08 Resul ts for PM DENTAL PRACTICE MANAGER this procedure are in the results section. POC GLUCOSE SCREEN Routine 07/08/2021 5:49 Resul ts for PM DENTAL PRACTICE MANAGER this procedure are in the results section. STREPTOCOCCAL URINE Routine 07/08/2021 5:17 Resu lts for ANTIGEN PATH REVIEW PM DENTAL PRACTICE MANAGER this pro cedure are in the results section. LEGIONELLA URINE Routine 07/08/2021 5:17 Results for ANTIGEN PATH REVIEW PM DENTAL PRACTICE MANAGER this pro cedure are in the results section. LEGIONELLA URINE Now 07/08/2021 5:17 Results for ANTIGEN PM DENTAL PRACTICE MANAGER this procedure are in the results section. STREPTOCOCCUS Now 07/08/2021 5:17 Results fo r PNEUMONIAE URINE PM DENTAL PRACTICE MANAGER this proced ure ANTIGEN are in the results section. GENERAL LABORATORY ADD Now 07/08/2021 3:35 R esults for ON TEST PM DENTAL PRACTICE MANAGER this procedure are in the results section. MRSA SCREENING CULTURE Now 07/08/2021 3:23 R esults for PM DENTAL PRACTICE MANAGER this procedure are in the results section. CT CHEST PULMONARY Routine 07/08/2021 1:38 Resul ts for EMBOLISM W CONTRAST PM DENTAL PRACTICE MANAGER this pro cedure are in the results section. XR ABDOMEN AP Routine 07/08/2021 1:31 Results fo r PM DENTAL PRACTICE MANAGER this procedure are in the results section. POC CRITICAL Routine 07/08/2021 12:14 Results for PM DENTAL PRACTICE MANAGER this procedure are in the results section. POC CHEM 8 Routine 07/08/2021 12:14 Results for PM DENTAL PRACTICE MANAGER this procedure are in the results section. PROCALCITONIN Now 07/08/2021 12:13 Results fo r PM DENTAL PRACTICE MANAGER this procedure are in the results section. FRACTIONATED BILIRUBIN Now 07/08/2021 12:13 R esults for PM DENTAL PRACTICE MANAGER this procedure are in the results section. TOTAL PROTEIN Now 07/08/2021 12:13 Results fo r PM DENTAL PRACTICE MANAGER this procedure are in the results section. ASPARTATE Now 07/08/2021 12:13 Results for AMINOTRANSFERASE PM DENTAL PRACTICE MANAGER this proced ure are in the results section. ALANINE Now 07/08/2021 12:13 Results for AMINOTRANSFERASE PM DENTAL PRACTICE MANAGER this proced ure are in the results section. ALKALINE PHOSPHATASE Now 07/08/2021 12:13 Res ults for PM DENTAL PRACTICE MANAGER this procedure are in the results section. ALBUMIN LEVEL Now 07/08/2021 12:13 Results fo r PM DENTAL PRACTICE MANAGER this procedure are in the results section. CALCIUM LEVEL TOTAL Now 07/08/2021 12:13 Resu lts for PM DENTAL PRACTICE MANAGER this procedure are in the results section. .GLOMERULAR FILTRATION Now 07/08/2021 12:13 R esults for RATE PM DENTAL PRACTICE MANAGER this procedure are in the results section. SERUM CREATININE Now 07/08/2021 12:13 Results for PM DENTAL PRACTICE MANAGER this procedure are in the results section. ELECTROLYTE PANEL Now 07/08/2021 12:13 Result s for PM DENTAL PRACTICE MANAGER this procedure are in the results section. BLOOD UREA NITROGEN Now 07/08/2021 12:13 Resu lts for PM DENTAL PRACTICE MANAGER this procedure are in the results section. GLUCOSE LEVEL Now 07/08/2021 12:13 Results fo r PM DENTAL PRACTICE MANAGER this procedure are in the results section. MANUAL DIFFERENTIAL STAT 07/08/2021 12:13 Resu lts for PM DENTAL PRACTICE MANAGER this procedure are in the results section. Results CBC STAT 07/08/2021 12:13 Results for PM DENTAL PRACTICE MANAGER this procedure are in the results section. CARDIAC PANEL Timed Study 07/08/2021 12:13 Results fo r PM DENTAL PRACTICE MANAGER this procedure are in the results section. D DIMER Now 07/08/2021 12:13 Results for PM DENTAL PRACTICE MANAGER this procedure are in the results section. APTT Now 07/08/2021 12:13 Results for PM DENTAL PRACTICE MANAGER this procedure are in the results section. PROTHROMBIN TIME Now 07/08/2021 12:13 Results for PM DENTAL PRACTICE MANAGER this procedure are in the results section. PHOSPHORUS LEVEL Now 07/08/2021 12:13 Results for PM DENTAL PRACTICE MANAGER this procedure are in the results section. MAGNESIUM LEVEL Now 07/08/2021 12:13 Results for PM DENTAL PRACTICE MANAGER this procedure are in the results section. COMPREHENSIVE METABOLIC Now 07/08/2021 12:13 PANEL PM DENTAL PRACTICE MANAGER COMPLETE BLOOD COUNT W/ Now 07/08/2021 12:13 DIFFERENTIAL PM DENTAL PRACTICE MANAGER XR CHEST 1 VW Routine 07/08/2021 11:38 Results fo r AM DENTAL PRACTICE MANAGER this procedure are in the results section. COVID-19 (SARS-COV-2) Now 07/08/2021 11:23 Re sults for ASYMPTOMATIC-LT AM DENTAL PRACTICE MANAGER this procedu re are in the results section. CT HEAD WO CONTRAST Routine 07/08/2021 11:05 Resu lts for AM DENTAL PRACTICE MANAGER this procedure are in the results section. POC GLUCOSE SCREEN Routine 07/08/2021 10:47 Resul ts for AM DENTAL PRACTICE MANAGER this procedure are in the results section. 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 ASPARTATE Routine 07/04/2021 11:10 Primary squamous Results for AMINOTRANSFERASE AM DENTAL PRACTICE MANAGER cell carcinoma of this p rocedure larynx are in the results section. ALANINE Routine 07/04/2021 11:10 Primary squamous Results for AMINOTRANSFERASE AM DENTAL PRACTICE MANAGER cell carcinoma of this p rocedure larynx are in the results section. 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 SERUM CREATININE Routine 07/04/2021 11:10 Primary squamous Res ults for AM DENTAL PRACTICE MANAGER cell carcinoma of this proce dure larynx are in the results section. ELECTROLYTE PANEL Routine 07/04/2021 11:10 Primary squamous Re sults for AM DENTAL PRACTICE MANAGER cell carcinoma of this proce dure larynx are in the results section. 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 GLUCOSE LEVEL Routine 07/04/2021 11:10 Primary squamous Result s for AM DENTAL PRACTICE MANAGER cell carcinoma of this proce dure larynx are in the results section. PHOSPHORUS LEVEL Routine 07/04/2021 11:10 Primary squamous Res ults for AM DENTAL PRACTICE MANAGER cell carcinoma of this proce dure larynx are in the results section. MAGNESIUM LEVEL Routine 07/04/2021 11:10 Primary squamous Resu lts for AM DENTAL PRACTICE MANAGER cell carcinoma of this proce dure larynx are in the results section. 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 TOTAL PROTEIN Routine 06/27/2021 8:00 Primary squamous Result s for AM DENTAL PRACTICE MANAGER cell carcinoma of this proce dure larynx are in the results section. ASPARTATE Routine 06/27/2021 8:00 Primary squamous Results for AMINOTRANSFERASE AM DENTAL PRACTICE MANAGER cell carcinoma of this p rocedure larynx are in the results section. ALANINE Routine 06/27/2021 8:00 Primary squamous Results for AMINOTRANSFERASE AM DENTAL PRACTICE MANAGER cell carcinoma of this p rocedure larynx are in the results section. 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 ALBUMIN LEVEL Routine 06/27/2021 8:00 Primary squamous Result s for AM DENTAL PRACTICE MANAGER cell carcinoma of this proce dure larynx are in the results section. 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 SERUM CREATININE Routine 06/27/2021 8:00 Primary squamous Res ults for AM DENTAL PRACTICE MANAGER cell carcinoma of this proce dure larynx are in the results section. ELECTROLYTE PANEL Routine 06/27/2021 8:00 Primary squamous Re sults for AM DENTAL PRACTICE MANAGER cell carcinoma of this proce dure larynx are in the results section. 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 GLUCOSE LEVEL Routine 06/27/2021 8:00 Primary squamous Result s for AM DENTAL PRACTICE MANAGER cell carcinoma of this proce dure larynx are in the results section. PHOSPHORUS LEVEL Routine 06/27/2021 8:00 Primary squamous Res ults for AM DENTAL PRACTICE MANAGER cell carcinoma of this proce dure larynx are in the results section. MAGNESIUM LEVEL Routine 06/27/2021 8:00 Primary squamous Resu lts for AM DENTAL PRACTICE MANAGER cell carcinoma of this proce dure larynx are in the results section. COMPLETE BLOOD COUNT W/ Routine 06/27/2021 8:00 Primary squam ous DIFFERENTIAL AM DENTAL PRACTICE MANAGER cell carcinoma of larynx COMPREHENSIVE METABOLIC Routine 06/27/2021 8:00 Primary squam ous PANEL AM DENTAL PRACTICE MANAGER cell carcinoma of larynx TROPONIN T STAT 06/22/2021 3:45 Results for PM DENTAL PRACTICE MANAGER this procedure are in the results section. FRACTIONATED BILIRUBIN Now 06/22/2021 11:54 R esults for AM DENTAL PRACTICE MANAGER this procedure are in the results section. TOTAL PROTEIN Now 06/22/2021 11:54 Results fo r AM DENTAL PRACTICE MANAGER this procedure are in the results section. ASPARTATE Now 06/22/2021 11:54 Results for AMINOTRANSFERASE AM DENTAL PRACTICE MANAGER this proced ure are in the results section. ALANINE Now 06/22/2021 11:54 Results for AMINOTRANSFERASE AM DENTAL PRACTICE MANAGER this proced ure are in the results section. ALKALINE PHOSPHATASE Now 06/22/2021 11:54 Res ults for AM DENTAL PRACTICE MANAGER this procedure are in the results section. ALBUMIN LEVEL Now 06/22/2021 11:54 Results fo r AM DENTAL PRACTICE MANAGER this procedure are in the results section. CALCIUM LEVEL TOTAL Now 06/22/2021 11:54 Resu lts for AM DENTAL PRACTICE MANAGER this procedure are in the results section. .GLOMERULAR FILTRATION Now 06/22/2021 11:54 R esults for RATE AM DENTAL PRACTICE MANAGER this procedure are in the results section. SERUM CREATININE Now 06/22/2021 11:54 Results for AM DENTAL PRACTICE MANAGER this procedure are in the results section. ELECTROLYTE PANEL Now 06/22/2021 11:54 Result s for AM DENTAL PRACTICE MANAGER this procedure are in the results section. BLOOD UREA NITROGEN Now 06/22/2021 11:54 Resu lts for AM DENTAL PRACTICE MANAGER this procedure are in the results section. GLUCOSE LEVEL Now 06/22/2021 11:54 Results fo r AM DENTAL PRACTICE MANAGER this procedure are in the results section. MANUAL DIFFERENTIAL STAT 06/22/2021 11:54 Resu lts for AM DENTAL PRACTICE MANAGER this procedure are in the results section. Results CBC STAT 06/22/2021 11:54 Results for AM DENTAL PRACTICE MANAGER this procedure are in the results section. CKMB Now 06/22/2021 11:54 Results for AM DENTAL PRACTICE MANAGER this procedure are in the results section. CREATINE KINASE Now 06/22/2021 11:54 Results for AM DENTAL PRACTICE MANAGER this procedure are in the results section. NT PRO BNP Now 06/22/2021 11:54 Results for AM DENTAL PRACTICE MANAGER this procedure are in the results section. PHOSPHORUS LEVEL Now 06/22/2021 11:54 Results for AM DENTAL PRACTICE MANAGER this procedure are in the results section. MAGNESIUM LEVEL Now 06/22/2021 11:54 Results for AM DENTAL PRACTICE MANAGER this procedure are in the results section. COMPREHENSIVE METABOLIC Now 06/22/2021 11:54 PANEL AM DENTAL PRACTICE MANAGER COMPLETE BLOOD COUNT W/ Now 06/22/2021 11:54 DIFFERENTIAL AM DENTAL PRACTICE MANAGER COVID-19 (SARS-COV-2) Now 06/22/2021 11:54 Re sults for ASYMPTOMATIC-LT AM DENTAL PRACTICE MANAGER this procedu re are in the results section. EKG, 12-LEAD (PORTABLE) Routine 06/22/2021 EKG, 12-LEAD (PORTABLE) STAT 06/22/2021 CT HEAD/NECK SIMULATION Routine 06/21/2021 9:00 Primary squam ous Results for WO CONTRAST (RO) AM DENTAL PRACTICE MANAGER cell carcinoma of this p rocedure larynx are in the results section. MANUAL DIFFERENTIAL Routine 06/20/2021 8:07 Primary squamous Results for AM DENTAL PRACTICE MANAGER cell carcinoma of this proce dure larynx are in the results section. Results CBC Routine 06/20/2021 8:07 Primary squamous Results for AM DENTAL PRACTICE MANAGER cell carcinoma of this proce dure larynx are in the results section. FRACTIONATED BILIRUBIN Routine 06/20/2021 8:07 Primary squamo us Results for AM DENTAL PRACTICE MANAGER cell carcinoma of this proce dure larynx are in the results section. TOTAL PROTEIN Routine 06/20/2021 8:07 Primary squamous Result s for AM DENTAL PRACTICE MANAGER cell carcinoma of this proce dure larynx are in the results section. ASPARTATE Routine 06/20/2021 8:07 Primary squamous Results for AMINOTRANSFERASE AM DENTAL PRACTICE MANAGER cell carcinoma of this p rocedure larynx are in the results section. ALANINE Routine 06/20/2021 8:07 Primary squamous Results for AMINOTRANSFERASE AM DENTAL PRACTICE MANAGER cell carcinoma of this p rocedure larynx are in the results section. ALKALINE PHOSPHATASE Routine 06/20/2021 8:07 Primary squamous Results for AM DENTAL PRACTICE MANAGER cell carcinoma of this proce dure larynx are in the results section. ALBUMIN LEVEL Routine 06/20/2021 8:07 Primary squamous Result s for AM DENTAL PRACTICE MANAGER cell carcinoma of this proce dure larynx are in the results section. CALCIUM LEVEL TOTAL Routine 06/20/2021 8:07 Primary squamous Results for AM DENTAL PRACTICE MANAGER cell carcinoma of this proce dure larynx are in the results section. 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 SERUM CREATININE Routine 06/20/2021 8:07 Primary squamous Res ults for AM DENTAL PRACTICE MANAGER cell carcinoma of this proce dure larynx are in the results section. ELECTROLYTE PANEL Routine 06/20/2021 8:07 Primary squamous Re sults for AM DENTAL PRACTICE MANAGER cell carcinoma of this proce dure larynx are in the results section. BLOOD UREA NITROGEN Routine 06/20/2021 8:07 Primary squamous Results for AM DENTAL PRACTICE MANAGER cell carcinoma of this proce dure larynx are in the results section. GLUCOSE LEVEL Routine 06/20/2021 8:07 Primary squamous Result s for AM DENTAL PRACTICE MANAGER cell carcinoma of this proce dure larynx are in the results section. PHOSPHORUS LEVEL Routine 06/20/2021 8:07 Primary squamous Res ults for AM DENTAL PRACTICE MANAGER cell carcinoma of this proce dure larynx are in the results section. MAGNESIUM LEVEL Routine 06/20/2021 8:07 Primary squamous Resu lts for AM DENTAL PRACTICE MANAGER cell carcinoma of this proce dure larynx are in the results section. COMPLETE BLOOD COUNT W/ Routine 06/20/2021 8:07 Primary squam ous DIFFERENTIAL AM DENTAL PRACTICE MANAGER cell carcinoma of larynx COMPREHENSIVE METABOLIC Routine 06/20/2021 8:07 Primary squam ous PANEL AM DENTAL PRACTICE MANAGER cell carcinoma of larynx MANUAL DIFFERENTIAL Routine 06/13/2021 7:00 Primary squamous Results for AM DENTAL PRACTICE MANAGER cell carcinoma of this proce dure larynx are in the results section. Results CBC Routine 06/13/2021 7:00 Primary squamous Results for AM DENTAL PRACTICE MANAGER cell carcinoma of this proce dure larynx are in the results section. FRACTIONATED BILIRUBIN Routine 06/13/2021 7:00 Primary squamo us Results for AM DENTAL PRACTICE MANAGER cell carcinoma of this proce dure larynx are in the results section. TOTAL PROTEIN Routine 06/13/2021 7:00 Primary squamous Result s for AM DENTAL PRACTICE MANAGER cell carcinoma of this proce dure larynx are in the results section. ASPARTATE Routine 06/13/2021 7:00 Primary squamous Results for AMINOTRANSFERASE AM DENTAL PRACTICE MANAGER cell carcinoma of this p rocedure larynx are in the results section. ALANINE Routine 06/13/2021 7:00 Primary squamous Results for AMINOTRANSFERASE AM DENTAL PRACTICE MANAGER cell carcinoma of this p rocedure larynx are in the results section. ALKALINE PHOSPHATASE Routine 06/13/2021 7:00 Primary squamous Results for AM DENTAL PRACTICE MANAGER cell carcinoma of this proce dure larynx are in the results section. ALBUMIN LEVEL Routine 06/13/2021 7:00 Primary squamous Result s for AM DENTAL PRACTICE MANAGER cell carcinoma of this proce dure larynx are in the results section. CALCIUM LEVEL TOTAL Routine 06/13/2021 7:00 Primary squamous Results for AM DENTAL PRACTICE MANAGER cell carcinoma of this proce dure larynx are in the results section. 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 SERUM CREATININE Routine 06/13/2021 7:00 Primary squamous Res ults for AM DENTAL PRACTICE MANAGER cell carcinoma of this proce dure larynx are in the results section. ELECTROLYTE PANEL Routine 06/13/2021 7:00 Primary squamous Re sults for AM DENTAL PRACTICE MANAGER cell carcinoma of this proce dure larynx are in the results section. BLOOD UREA NITROGEN Routine 06/13/2021 7:00 Primary squamous Results for AM DENTAL PRACTICE MANAGER cell carcinoma of this proce dure larynx are in the results section. GLUCOSE LEVEL Routine 06/13/2021 7:00 Primary squamous Result s for AM DENTAL PRACTICE MANAGER cell carcinoma of this proce dure larynx are in the results section. PHOSPHORUS LEVEL Routine 06/13/2021 7:00 Primary squamous Res ults for AM DENTAL PRACTICE MANAGER cell carcinoma of this proce dure larynx are in the results section. MAGNESIUM LEVEL Routine 06/13/2021 7:00 Primary squamous Resu lts for AM DENTAL PRACTICE MANAGER cell carcinoma of this proce dure larynx are in the results section. COMPLETE BLOOD COUNT W/ Routine 06/13/2021 7:00 Primary squam ous DIFFERENTIAL AM DENTAL PRACTICE MANAGER cell carcinoma of larynx COMPREHENSIVE METABOLIC Routine 06/13/2021 7:00 Primary squam ous PANEL AM DENTAL PRACTICE MANAGER cell carcinoma of larynx MANUAL DIFFERENTIAL Routine 06/06/2021 6:58 Primary squamous Results for AM DENTAL PRACTICE MANAGER cell carcinoma of this proce dure larynx are in the results section. Results CBC Routine 06/06/2021 6:58 Primary squamous Results for AM DENTAL PRACTICE MANAGER cell carcinoma of this proce dure larynx are in the results section. FRACTIONATED BILIRUBIN Routine 06/06/2021 6:58 Primary squamo us Results for AM DENTAL PRACTICE MANAGER cell carcinoma of this proce dure larynx are in the results section. TOTAL PROTEIN Routine 06/06/2021 6:58 Primary squamous Result s for AM DENTAL PRACTICE MANAGER cell carcinoma of this proce dure larynx are in the results section. ASPARTATE Routine 06/06/2021 6:58 Primary squamous Results for AMINOTRANSFERASE AM DENTAL PRACTICE MANAGER cell carcinoma of this p rocedure larynx are in the results section. ALANINE Routine 06/06/2021 6:58 Primary squamous Results for AMINOTRANSFERASE AM DENTAL PRACTICE MANAGER cell carcinoma of this p rocedure larynx are in the results section. ALKALINE PHOSPHATASE Routine 06/06/2021 6:58 Primary squamous Results for AM DENTAL PRACTICE MANAGER cell carcinoma of this proce dure larynx are in the results section. ALBUMIN LEVEL Routine 06/06/2021 6:58 Primary squamous Result s for AM DENTAL PRACTICE MANAGER cell carcinoma of this proce dure larynx are in the results section. CALCIUM LEVEL TOTAL Routine 06/06/2021 6:58 Primary squamous Results for AM DENTAL PRACTICE MANAGER cell carcinoma of this proce dure larynx are in the results section. .GLOMERULAR FILTRATION Routine 06/06/2021 6:58 Primary squamo us Results for RATE AM DENTAL PRACTICE MANAGER cell carcinoma of this proce dure larynx are in the results section. SERUM CREATININE Routine 06/06/2021 6:58 Primary squamous Res ults for AM DENTAL PRACTICE MANAGER cell carcinoma of this proce dure larynx are in the results section. ELECTROLYTE PANEL Routine 06/06/2021 6:58 Primary squamous Re sults for AM DENTAL PRACTICE MANAGER cell carcinoma of this proce dure larynx are in the results section. BLOOD UREA NITROGEN Routine 06/06/2021 6:58 Primary squamous Results for AM DENTAL PRACTICE MANAGER cell carcinoma of this proce dure larynx are in the results section. GLUCOSE LEVEL Routine 06/06/2021 6:58 Primary squamous Result s for AM DENTAL PRACTICE MANAGER cell carcinoma of this proce dure larynx are in the results section. PHOSPHORUS LEVEL Routine 06/06/2021 6:58 Primary squamous Res ults for AM DENTAL PRACTICE MANAGER cell carcinoma of this proce dure larynx are in the results section. MAGNESIUM LEVEL Routine 06/06/2021 6:58 Primary squamous Resu lts for AM DENTAL PRACTICE MANAGER cell carcinoma of this proce dure larynx are in the results section. COMPLETE BLOOD COUNT W/ Routine 06/06/2021 6:58 Primary squam ous DIFFERENTIAL AM DENTAL PRACTICE MANAGER cell carcinoma of larynx COMPREHENSIVE METABOLIC Routine 06/06/2021 6:58 Primary squam ous PANEL AM DENTAL PRACTICE MANAGER cell carcinoma of larynx MANUAL DIFFERENTIAL Routine 05/30/2021 8:28 Primary squamous Results for AM DENTAL PRACTICE MANAGER cell carcinoma of this proce dure larynx are in the results section. Results CBC Routine 05/30/2021 8:28 Primary squamous Results for AM DENTAL PRACTICE MANAGER cell carcinoma of this proce dure larynx are in the results section. FRACTIONATED BILIRUBIN Routine 05/30/2021 8:28 Primary squamo us Results for AM DENTAL PRACTICE MANAGER cell carcinoma of this proce dure larynx are in the results section. 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 COVID-19 Routine 05/11/2021 9:05 Encounter for Results fo r (SARS-COV-2) PCR AM DENTAL PRACTICE MANAGER observation for this pro cedure ASYMPTOMATIC other suspected are in the exposure to results biological agent section. ruled out ORTHOPANTOGRAM Routine 05/06/2021 10:53 Encounter for Results for AM DENTAL PRACTICE MANAGER observation for this procedu re other suspected are in the disease ruled out results section. 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 COVID-19 Routine 05/04/2021 10:23 Suspected COVID-19 Resul ts for (SARS-COV-2) PCR AM DENTAL PRACTICE MANAGER this proced ure ASYMPTOMATIC are in the results section. TMP HCVAB INTERP Routine 05/03/2021 8:26 Results for AM DENTAL PRACTICE MANAGER this procedure are in the results section. 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 POC CREATININE Routine 05/03/2021 6:56 Results f or AM DENTAL PRACTICE MANAGER this procedure are in the results section. OSI PET CT SKULL TO MID Routine 04/07/2021 1:24 Cancer Results for THIGH PM CDT this procedure are in the results section. PATHOLOGY OUTSIDE Routine 03/28/2021 Results fo r INTERPRETATION this procedur e are in the results section. OSI CHEST Routine 03/24/2021 1:24 Cancer Results for PM CDT this procedure are in the results section. after 09/30/2020 Results Modified Barium Swallow w Speech (09/23/2021 10:46 AM CDT)Only the most recent of3 resultswithin the time period is included. Anatomical Region Laterality Modality Neck Radio Fluoroscopy Specimen Impressions [id number] - 09/23/2021 3:54 PM CDT 1. Silent aspiration with thin liquids w as reduced with strategies. Silent laryngeal penetration with thick liquids was reduced with strategies. 2. Moderate pharyngeal residue was reduc ed with strategies. Refer to speech pathology note for furth er details. Narrative [id number] - 09/23/2021 3:54 PM CDT FULL RESULT: [...] Organization Address City/State/ZIP Code Phon e Number [id number] CT Soft Tissue Neck with Contrast (09/20/2021 4:26 PM CDT)Only the most recent of2 resultswithin the time period is included. Anatomical Region Laterality Modality Neck Computed Tomography Specimen Impressions [id number] - 09/21/2021 7:52 AM CDT 1. Near complete resolution of previou sly present enhancement within the supraglottic larynx with interval development of enhancement within the aryepiglottic folds and hypopharynx as described above which may be reflective of radiation eff ects. Recommend correlation with direct inspection. 2. No evidence of new cervical adenopa thy to suggest herrera disease recurrence in the neck. Occasional rfid specialist errors may have occurred due to the inherent limitations of voice recognition software, and incorrect words/phrases may have been missed during proofreading. Please interpret using context where substitutions have occurred. Narrative [id number] - 09/21/2021 7:52 AM CDT FULL RESULT: [...] herrera disease recurrence in the neck. Occasional rfid specialist errors may have occurred due to the inherent limitations of voice recognition software, and incorrect words/phrases may have been missed during proofreading. Please interpret using context where substitutions have occurred. Performing Organization Address City/State/ZIP Code Phon e Number [id number] CT Chest with Contrast (09/20/2021 4:26 PM CDT)Only the most recent of2 results within the time period is included. Anatomical Region Laterality Modality Chest Computed Tomography Specimen Impressions [id number] - 09/21/2021 12:03 PM CDT New opacities in the lingula and left lower lobe concerning for aspiration and/or pneumonia. Clinical correlation follow-up to resolution is recommended. No definite sign of metastatic disease in the chest. Narrative [id number] - 09/21/2021 12:03 PM CDT FULL RESULT: [...] in the chest. Performing Organization Address City/State/ZIP Code Phon e Number [id number] .Serum Creatinine (09/20/2021 11:58 AM CDT)Only the most recent of28 results within the time period is included. Pathologist Sig nature Creatinine 0.98 0.67 - 1.17 mg/dL [facility] CANCER C ENTER Specimen Blood Narrative [facility] - 2 1:28 PM CDT Pls schedule videostrobe prior to MD eric ts Performing Organization Address City/State/ZIP Code Phon e Number [facility] CANCER Unless otherwise noted, [place] [address] CENTER all lab tests performed by: Division of Pathology and Laboratory Medicine [facility] Glomerular Filtration Rate (09/20/2021 11:58 AM CDT)Only the most recent of28 resultswithin the time period is included. eGFR-AA 89 >=60 [facility] Comment: mL/min/1.73 CANCER CENTER Normal eGFR: >= 60 mL/min/1.73 m2 sq. m Note: The eGFR is calculated using the CKD-EPI equation. The eGFR declines with age. eGFR <60 mL/min/1.73 m2 is considered as "decreased". This equation should only be used for patients 18 and older. According to the National [facility]'s Kidney Disease Outcome Quality [...] 5 Kidney failure <15 eGFR-JOSELITO 77 >=60 [facility] Comment: mL/min/1.73 [facility] Normal eGFR: >= 60 mL/min/1.73 m2 sq. m Note: The eGFR is calculated using the CKD-EPI equation. The eGFR declines with age. eGFR <60 mL/min/1.73 m2 is considered as "decreased". This equation should only be used for patients 18 and older. According to the National [facility]'s Kidney Disease Outcome Quality Initiative (KDOQI) classification [...] 5 Kidney failure <15 Specimen Blood Narrative [facility] - 2 1:28 PM CDT Pls schedule videostrobe prior to MD eric ts Performing Organization Address City/[facility] Phon e Number [facility] CANCER Unless otherwise noted, [address] all lab tests performed by: Division of Pathology and Laboratory Medicine [address] (ABNORMAL) BUN (09/20/2021 11:58 AM CDT)Only the most recent of28 resultswithin the time period is included. Pathologist Sig nature BUN 35 (H) 6 - 23 mg/dL [facility] Specimen Blood Narrative [facility] - 2 1:28 PM CDT Pls schedule videostrobe prior to MD eric ts Performing Organization Address City/[facility] Phon e Number [facility] CANCER Unless otherwise noted, [address] all lab tests performed by: Division of Pathology and Laboratory Medicine [address] TSH (09/20/2021 11:58 AM CDT)Only the most recent of2 resultswithin the time period is included. Pathologist Sig nature TSH 3.11 0.27 - 4.20 mcunit/mL [facility] Specimen Blood Narrative [facility] - 2 1:28 PM CDT Pls schedule videostrobe prior to MD eric luis Performing Organization Address City/[facility]/ZIP [facility] Phon e Number [facility] CANCER Unless otherwise noted, [address] all lab tests performed by: Division of Pathology and Laboratory Medicine [address] [place] [address] Free T4 (09/20/2021 11:58 AM CDT)Only the most recent of2 resultswithin the time period is included. Pathologist [facility] nature T4 Free 1.40 0.93 - 1.70 ng/dL [facility] CANCER C ENTER Specimen Blood Narrative [facility] - 2 1:28 PM CDT Pls schedule videostrobe prior to MD eric ts Performing Organization Address [facility] Phon e Number [facility] CANCER Unless otherwise noted, [address] all lab tests performed by: Division of Pathology and Laboratory Medicine [address] [place] [address] (ABNORMAL) POC Glucose Screen (08/31/2021 10:15 AM CDT)Only the most recent of40 resultswithin the time period is included. Pathologist [facility] POC Glucose 131 (H) 70 - 99 [...] Sample Type Capillary POC TELCOR Per[facility]: [facility] Clinical Lab, [address] [place] [address], [place] [address]; Media Relations Specialist: Loida Chavez MD Specimen Blood Performing Organization Address [facility] Phon e Number POC TELCOR (ABNORMAL) .CBC (08/31/2021 4:26 AM CDT)Only the most recent of21 resultswithin the time period is included. Pathologist [facility] WBC 4.4 4.0 - 11.0 [facility]/ CANCER CENTER RBC 3.03 (L) 4.50 - 6.00 [facility] M/uL [facility] Hgb 8.3 (L) 14.0 - 18.0 [facility] gm/dL [facility] Hct 26.8 (L) 40.0 - 54.0 % [facility] MCV 88 82 - 98 fL [facility] MCH 27.4 27.0 - 31.0 pg [facility] MCHC 31.0 31.0 - 36.0 [facility] gm/dL [facility] RDW-SD 46.0 35.1 - 46.3 fL [facility] RDW-CV 14.1 12.0 - 15.5 % [facility] Platelet count 236 140 - 440 K/uL [facility] MPV 10.0 4.0 - 10.4 fL [facility] INRBC 0.0 <=0.0 % [facility] Comment: [facility] The INRBC (instrument NRBC) value reflects the enumera tion of nucleated red blood cells contained in a 200uL samp le of whole blood analyzed by the instrument. This value may differ from the NRBC value reported in a manual differ ential, which is based on a 100 cell differential. Specimen Blood Performing Organization Address City/State/ZIP Code Phon e Number [facility] Unless otherwise noted, [place] [address] [place] all lab tests performed by: Division of Pathology and Laboratory Medicine [place] (ABNORMAL) Differential (08/31/2021 4:26 AM CDT)Only the most recent of21 resultswithin the time period is included. Neutrophil % 71.7 (H) 42.0 - 66.0 % [facility] Lymphocyte % 14.8 (L) 24.0 - 44.0 % [facility] Monocyte % 6.6 2.0 - 7.0 % [facility] Eosinophil % 5.7 (H) 1.0 - 4.0 % [facility] Basophil % 0.7 0.0 - 1.0 % [facility] IGRE % 0.5 (H)Comment: 0.0 - 0.4 % [facility] IGRE % count [facility] includes Metamyelocytes, Myelocytes, and Promyelocytes. Neutrophil Abs 3.16 1.70 - 7.30 [facility] Lymphocyte Abs 0.65 (L) 1.00 - 4.80 [facility] Monocyte Abs 0.29 0.08 - 0.70 [facility] Eosinophil Abs 0.25 0.04 - 0.40 [facility] Basophil Abs 0.03 0.00 - 0.10 [facility] IG Abs 0.02 0.00 - 0.04 [facility] Specimen Blood Performing Organization Address [facility] Phon e Number [facility] CANCER Unless otherwise noted, [address] all lab tests performed by: Division of Pathology and Laboratory Medicine [address] Phosphorus Level (08/31/2021 4:26 AM CDT)Only the most recent of26 results within the time period is included. Pathologist Sig nature Phosphorus 3.0 2.5 - 4.5 mg/dL [facility] TER Specimen Blood Performing Organization Address [facility] Phon e Number [facility] Unless otherwise noted, [address] all lab tests performed by: Division of Pathology and Laboratory Medicine [address] Magnesium Level (08/31/2021 4:26 AM CDT)Only the most recent of26 resultswithin the time period is included. Pathologist Sig nature Magnesium 1.8 1.6 - 2.6 mg/dL [facility] TER Specimen Blood Performing Organization Address [facility] Phon e Number [facility] Unless otherwise noted, [address] all lab tests performed by: Division of Pathology and Laboratory Medicine [address] (ABNORMAL) Glucose Level (08/31/2021 4:26 AM CDT)Only the most recent of26 resultswithin the time period is included. Glucose Level 136 (H) 70 - 99 mg/dL [facility] Comment: CANCER CENTER Effective 12/29/15, the gluco se reference intervals have been updated based on [place] Diabetes Association guidelines (Standards of Medical Care in Diabetes 2016. Diabetes Care 2016; 39: S13-S22). Fasting blood glucose: Normal: 70-99 mg/dL Impaired fasting glucose (in creased risk for diabetes or pre-diabetes): 100- 125 mg/dL Diabetes mellitus: >/=126 mg/dL Random blood glucose: Normal: 70-199 mg/dL Note: Random glucose >100 mg/dL is assoc iated with increased risk for diabetes Specimen Blood Performing Organization Address City/[facility] Phon e Number [facility] Unless otherwise noted, [address] all lab tests performed by: Division of Pathology and Laboratory Medicine [address] [place] [address] Calcium Level (08/31/2021 4:26 AM CDT)Only the most recent of26 resultswithin the time period is included. Pathologist Sig nature Calcium Lvl 8.4 8.4 - 10.2 mg/dL [facility] NTER Specimen Blood Performing Organization Address [facility] Number [facility] Unless otherwise noted, [address] all lab tests performed by: Division of Pathology and Laboratory Medicine [address] [place] [address] (ABNORMAL) Electrolyte Panel (08/31/2021 4:26 AM CDT)Only the most recent of27 resultswithin the time period is included. Pathologist Sig nature Sodium Lvl 138 136 - 145 mEq/L [facility] Potassium Lvl 3.4 (L) 3.5 - 5.1 mEq/L [facility] Chloride 101 98 - 107 mEq/L [facility] CO2 26 22 - 29 mEq/L [facility] Anion Gap 11 4 - 14 mEq/L [facility] Specimen Blood Performing Organization Address [facility] Phon e Number [facility] CANCER Unless otherwise noted, [address] all lab tests performed by: Division of Pathology and Laboratory Medicine [address] XR Abdomen 1 View Portable (08/29/2021 6:11 PM CDT) Anatomical Region Laterality Modality Abdomen Digital Radiography Specimen Impressions [id number] - 08/29/2021 7:19 PM CDT Dobbhoff tube follows the course of the duodenum, tip projecting near the duodenojejunal junction. Narrative [id number] - 08/29/2021 7:19 PM CDT FULL RESULT: [...] Organization Address City/State/ZIP Code Phon e Number [id number] Pathology Biopsy Interpretation (08/29/2021 2:14 PM CDT) Pathologist Sig nature Submitted Clinical Iron deficiency [facility] History anemia, not otherwise specified [D50.9] Diagnosis A: Duodenum, biopsy: [facility] Electro nically signed Duodenal mucosa [...] in D1. ET Disclaimer "Some tests reported [facility] here may have been developed and performance characteristics determined by [facility] Pathology and Laboratory Medicine. These tests have not been specifically cleared or approved by the U.S. Food and Drug Administration. If applicable, controls were reviewed and showed appropriate reactivity." Specimen Tissue - Duodenum Tissue - Stomach Tissue - Stomach Tissue - Colon Performing Organization Address City/[facility] Phon e Number [facility] [place] [address] [address] (ABNORMAL) Prothrombin Time with INR (08/29/2021 5:31 AM CDT)Only the most recent of3 resultswithin the time period is included. Pathologist Sig reji PT 14.9 (H) 11.5 - 13.9 [facility](s) CENTER INR 1.26 (H) 0.90 - 1.10 [facility] Specimen Blood Performing Organization Address [facility] Phon e Number [facility] CANCER Unless otherwise noted, [address] all lab tests performed by: Division of Pathology and Laboratory [facility] Transfuse RBC:Transfusion Date: 08/25/2021 (08/26/2021 6:58 AM CDT)Only the most recent of2 resultswithin the time period is included.Confirm ABORh (08/25/2021 6:19 PM CDT) Pathologist Sig nature ABORh Confirm. O NEG [facility] CANCER CENT ER Specimen Blood Performing Organization Address [facility] Phon e Number [facility] CANCER Unless otherwise noted, [address] all lab tests performed by: Division of Pathology and Laboratory Medicine [facility] Sosamarshall Whyte COVID-19 (SARS-CoV-2)Asymptomatic-LT (08/25/2021 6:15 PM CDT)Only the most recent of3 resultswithin the time period is included. COVID19 Not Detected Not Detected [facility] (SARS-CoV-2) RUST COVID[address] [facility] Indication CANCER CENTER Covid [address] [facility] Comment: CANCER CENTER The rufino SARS-CoV-2 nucleic [...] fact sheet for patients provided by the aircraft line assembler ([employer]) can be reviewed at: https://www.Bit9.gov/media/15 0277/download. A fact sheet for Health Care providers is provided by the aircraft line assembler ([employer]) and can be reviewed at: https://www.fda.gov/media/550094/download Results must be interpreted within the context [...] and high-complexity tests. The Microbiology Laboratory at [facility], CLIA Accreditation # [id number] and CAP Accreditation #[id number], verified the performance characteristics of this assay. Internal controls are used to monitor all stages of the test process. Specimen Nasopharyngeal Swab Performing Organization Address City/[facility] Code Phon e Number [facility] Unless otherwise noted, [address] all lab tests performed by: Division of Pathology and Laboratory Medicine [address] [employer] Clot Expiration Date (08/25/2021 6:15 PM CDT) Pathologist Sig nature T & S Expiration 08/28/2021 [facility] Specimen Blood Performing Organization Address City/[facility] Phon e Number [facility] Unless otherwise noted, [address] all lab tests performed by: Division of Pathology and Laboratory Medicine [address] [facility] Williams Fractionated Bilirubin (08/25/2021 6:15 PM CDT)Only the most recent of12 resultswithin the time period is included. Pathologist [facility] Bili Total 0.4 <=1.2 mg/dL [facility] Comment: [facility] Indocyanine Green (ICG) may cause falsely elevated bilirubin results. Total and direct bilirubin must not be measured from samples containing indocyanine green. False elevation of total emmett irubin can be seen in patients with IgG concentrations above 28 g/L. Bili Direct 0.2Comment: <=0.3 mg/dL [facility] Indocyanine Green RUST (ICG) may cause falsely elevated bilirubin results. Total and direct bilirubin must not be measured from samples containing indocyanine green. Bili Indirect 0.2 0.0 - 0.9 [facility] mg/dL [facility] Specimen Blood Performing Organization Address City/[facility] Phon e Number [facility] CANCER Unless otherwise noted, [address] all lab tests performed by: Division of Pathology and Laboratory Medicine [facility] [address] TMP Interpretation Antibody Screen Negative (08/25/2021 6:15 PM CDT) [facility] TMP Auto Neg ABSC At the present time, patien t plasma shows no evidence of RBC alloantibodies. [facility] Interp Comment: RUST NICHOLE HUMPHREY MD - [id number] Dictated by: NICHOLE HUMPHREY MD - [id number] Dictated Date/Time: 08.27.19 8:43 AM CDT Transcribed Date/Time: 08.26.2021 8:43 AM CDT Electronically Signed By: MD Carri CAZARES [id number] on 08.26.2021 8:43 AM C Specimen Blood Performing Organization Address City/[facility] Phon e Number [facility] CANCER Unless otherwise noted, [address] all lab tests performed by: Division of Pathology and Laboratory Medicine [address] [place] [address] Isabell TMP Interpretation Crossmatch (08/25/2021 6:15 PM CDT) TMP XM Interp RBC units crossmatched for transfusion appear ac ceptable. [facility] Comment: CANCER CENTER NICHOLE HUMPHREY MD - [id number] Dictated by: NICHOLE HUMPHREY MD - [id number] Dictated Date/Time: 08.27.19 8:43 AM CDT Transcribed Date/Time: 08.26.2021 8:43 AM CDT Electronically Signed By: MD Carri CAZARES [id number] on 08.26.2021 8:43 AM C Specimen Blood Performing Organization Address City/[facility]/ZIP Code Phon e Number [facility] Unless otherwise noted, [address] all lab tests performed by: Division of Pathology and Laboratory Medicine [address] aPTT (08/25/2021 6:15 PM CDT)Only the most recent of2 resultswithin the time period is included. Pathologist Sig reji aPTT 32.7 24.7 - 36.8 second(s) [facility] Specimen Blood Performing Organization Address City/[facility]/ZIP Code Phon e Number [facility] CANCER Unless otherwise noted, [address] all lab tests performed by: Division of Pathology and Laboratory Medicine [address] ABORh (08/25/2021 6:15 PM CDT) Pathologist Sig nature ABORh. O NEG [facility] Specimen Blood Performing Organization Address City/[facility]/ZIP Code Phon e Number [facility] CANCER Unless otherwise noted, [address] all lab tests performed by: Division of Pathology and Laboratory Medicine [address] Antibody Screen (08/25/2021 6:15 PM CDT) Pathologist Sig nature ABSC. Negative ABSC [facility] CENTE R Specimen Blood Performing Organization Address City/[facility]/ZIP Code Phon e Number [facility] Unless otherwise noted, [address] all lab tests performed by: Division of Pathology and Laboratory Medicine [address] ALT (08/25/2021 6:15 PM CDT)Only the most recent of12 resultswithin the time period is included. Pathologist Sig nature ALT 29 <=41 U/L [facility] Specimen Blood Performing Organization Address City/[facility] Phon e Number [facility] Unless otherwise noted, [address] all lab tests performed by: Division of Pathology and Laboratory Medicine [address] Aspartate Aminotransferase (08/25/2021 6:15 PM CDT)Only the most recent of12 resultswithin the time period is included. Pathologist Sig nature AST 32 <=40 U/L [facility] Specimen Blood Performing Organization Address [facility] Phon e [facility] Unless otherwise noted, [address] all lab tests performed by: Division of Pathology and Laboratory Medicine [address] Total Protein (08/25/2021 6:15 PM CDT)Only the most recent of12 resultswithin the time period is included. Pathologist Sig nature Total Protein 7.2 6.4 - 8.3 g/dL [facility] TER Specimen Blood Performing Organization Address [facility] e [facility] Unless otherwise noted, [address] all lab tests performed by: Division of Pathology and Laboratory Medicine [address] Alkaline Phosphatase (08/25/2021 6:15 PM CDT)Only the most recent of12 results within the time period is included. Pathologist Sig nature Alk Phos 64 40 - 129 U/L [facility] Specimen Blood Performing Organization Address [facility] Phon e Number [facility] Unless otherwise noted, [address] all lab tests performed by: Division of Pathology and Laboratory Medicine [address] Albumin Level (08/25/2021 6:15 PM CDT)Only the most recent of12 resultswithin the time period is included. Pathologist Sig nature Albumin Lvl 3.7 3.5 - 5.2 gm/dL [facility] CHAR[facility]IE TER Specimen Blood Performing Organization Address City/State/ZIP Code Phon e Number [facility] Unless otherwise noted, [address] all lab tests performed by: Division of Pathology and Laboratory Medicine [address] [place] [address] Williams RBC Product Ready for Interface Analyst (08/25/2021 4:47 PM CDT) Pathologist [facility] PRBC Product Ready B2 Blood [facility] for Interface Analyst BankComment: [facility] Product is ready for oyster picker on August 25, 2021 22:21:56 CDT. Specimen Blood Performing Organization Address City/State/ZIP Code Phon e Number [facility] CANCER Unless otherwise noted, [address] all lab tests performed by: Division of Pathology and Laboratory Medicine [address] [place] [address] Prepare RBC:accc, 2 Units (08/25/2021 4:47 PM CDT) Pathologist [facility] PRBC Product Ready 2Comment: Red Blood [facility] Cells Available - [facility] Order Form 03 when ready for product issue. Unit Number [id number] [facility] Product Code [id number] [facility] CANCER CENTER Unit Expiration [facility] CANCER CENTER Unit Blood Type 9500 [facility] Product Code Text RBCIRLR CPD AS1 [facility] 500mL CANCER CENTER Crossmatch [facility] Expiration Date CANCER CENTER Unit Irradiated IRRADIATED [facility] CENTER Dispense Status ISSUED [facility] Unit Blood Type O Negative [facility] Product Interface Analyst .BPAMComment: [facility] Location CANCER CENTER Unit Number [id number] [facility] Product Code [id number] [facility] CANCER CENTER Unit Expiration [facility] Unit Blood Type 9500 [facility] Product Code Text RBCIRLR CPD AS1 [facility] 500mL CANCER CENTER Crossmatch [facility] Expiration Date CANCER CENTER Unit Irradiated IRRADIATED [facility] Dispense Status ISSUED [facility] CANCER [place] Unit Blood Type O Negative [facility] Product Interface Analyst .BPAMComment: [facility] Location CANCER CENTER Specimen Blood Performing Organization Address City/State/ZIP Code Phon e Number [facility] Unless otherwise noted, [place] [address] CENTER all lab tests performed by: Division of Pathology and Laboratory Medicine [address] [facility] X-ray Chest 2 Views (08/25/2021 11:17 AM CDT) Anatomical Region Laterality Modality Chest Digital Radiography Specimen Impressions [id number] - 08/25/2021 11:31 AM CDT There are mild opacities over the dorsal costophrenic recess on the lateral view that may represent either aspiration or pneumonia. Narrative [id number] - 08/25/2021 11:31 AM CDT FULL RESULT: [...] Organization Address City/State/ZIP Code Phon e Number [id number] Flexible nasopharyngeal laryngoscopy (08/22/2021 10:38 AM CDT) Rebecca Mark CCC-SLP - 10:38 AM CDT JAMIE Camarena 08/22/2021 4:05 PM Flexible nasopharyngeal laryngoscopy Date/Time: 08/22/2021 10:38 AM Provider Information: Performed by: SUKHDEEP Camarena Authorized by: OUMAR Staples Nurse Leader present?: no Indications: Indications: videostroboscopy Pre-Procedure Note: spring repairer helper hand: no Pre-procedure patient condition: coher ent Procedure [...] COVID19 (SARS Not Detected Not Detected [facility] CoV-2) Result Comment: CANCER CENTER This test [...] fact sheet for patients provided by the aircraft line assembler ( [employer]) can be reviewed at: https://www.fda.gov/media/22 4063/download. A fact sheet for Health Care providers is provided by the aircraft line assembler ([employer]) and can be reviewed at: https://www.fda.gov/media/242317/download Results must be interpreted within the context [...] were verified by the Microbiology Laboratory at [facility], CLIA Accreditation #: [id number] and CAP Accreditation #: [id number]. COVID19 SARS COMPUTER ASSEMBLER Swab [facility] COVID19 SARS Pre-Out of OR [facility] Indication Procedure CANCER CENTER Specimen Nasopharyngeal Swab Performing Organization Address City/State/ZIP Code Phon e Number [facility] CANCER Unless otherwise noted, [place] [address] CENTER all lab tests performed by: Division of Pathology and Laboratory Medicine [facility] Echocardiogram 2D Complete (07/11/2021 4:16 PM DENTAL PRACTICE MANAGER) Specimen Narrative ISCV - 07/11/2021 4:19 PM DENTAL PRACTICE MANAGER Echocardiographic Report Interpretation Summary A complete two-dimensional [...] ( sept): 17.1 62 Performing Organization Address City/[facility]/ZIP Code Phon e Number ISCV EKG, 12-Lead (07/11/2021)Only the most recent of5 resultswithin the time period is included. Specimen Narrative This result has an attachment that is no t available. Performing Organization Address [facility] Code Phon e Number GASPER IECG (ABNORMAL) Troponin T (In-House) (07/10/2021 6:09 AM DENTAL PRACTICE MANAGER)Only the most recent of4 resultswithin the time period is included. Pathologist Sig [facility] Troponin T 37 (H) <=18 ng/L [facility] Comment: CANCER CENTER < 19 [...] low results. Specimen Blood Performing Organization Address [facility] Code Phon e Number [facility] CANCER Unless otherwise noted, [place] [address] [place] all lab tests performed by: Division of Pathology and Laboratory Medicine [address] (ABNORMAL) Calcium Ionized, Venous (07/09/2021 10:35 PM DENTAL PRACTICE MANAGER) Pathologist Sig nature V Ion Ca 0.96 (L) 1.15 - 1.29 mmol/L [facility] Specimen Blood Performing Organization Address City/State/ZIP Code Phon e Number [facility] CANCER Unless otherwise noted, [address] all lab tests performed by: Division of Pathology and Laboratory Medicine [address] [place] [address] (ABNORMAL) Lower Respiratory Culture w/Gram Stain (07/09/2021 5:33 PM DENTAL PRACTICE MANAGER) Final Report Normal site shayna present. [facility] Generally of low significance. CANCER [place] TER Correlate with clinical data and culture history. (A) Path Review The results have been review ed and electronically signed by Pathologist: [facility] BERTA BRADY MD #[id number] CANCER CENTE R (A) Gram Stain Report Moderate WBC's seen [facility] Epithelial cells seen [facility] Moderate Gram Positive Cocci Moderate Gram Variable Madan (A) Specimen Sputum Induced Performing Organization Address City/[facility]/ZIP Code Phon e Number [facility] Unless otherwise noted, [address] all lab tests performed by: Division of Pathology and Laboratory Medicine [address] [place] [address] Vascular Access Ultrasound- VAP RN Device (07/09/2021 3:00 PM DENTAL PRACTICE MANAGER) Anatomical Region Laterality Modality Vascular Ultrasound Specimen Narrative Systemgenerated, Documentation - 022 3:00 PM DENTAL PRACTICE MANAGER This procedure requires no interpretatio n from the radiologist. Legionella Urine Antigen Path Review (07/08/2021 5:17 PM DENTAL PRACTICE MANAGER) Legionella Urine Negative for L. pneumophila serogroup 1 antigen, suggesting no recent or current infection. However, infection due to other serogroups and species of Legionella are not detected by this assay. In additi [facility] Antigen Path on, antigen may not be present in the urine in [facility] Review infection and the level of antigen present in the urine may be below the detection limit of the test. ... Reviewed and Electronically signed by Pathologist: Amaury Sinha MD, PhD #[id number] Comment: AMAURY SINHA MD, PhD - [id number] Dictated by: AMAURY SINHA MD, PhD - [id number] Dictated Date/Time: 07.11.19 1:11 AM DENTAL PRACTICE MANAGER Transcribed Date/Time: 07.11.2021 1:11 AM DENTAL PRACTICE MANAGER Electronically Signed By: ANIYAH SINHA MD, PhD - [id number] on 07.11.2021 1:11 AM C Specimen Urine Performing Organization Address City/[facility] Phon e Number [facility] CANCER Unless otherwise noted, [address] all lab tests performed by: Division of Pathology and Laboratory Medicine [address] [place] [address] Isabell Streptococcal Urine Antigen Path Review (07/08/2021 5:17 PM DENTAL PRACTICE MANAGER) Streptococcal Urine Presumptive negative for S. pneumoniae antigen in urine, suggesting no current or recent pneumococcal infection. Infection due to S. pneumoniae cannot be ruled out since the level of antigen present in [facility] Antigen Path Review the urine may be below the detection limit o f the [facility] test. ... Reviewed and Electronically signed by Pathologist: Amaury Sinha MD, PhD #[id number] Comment: AMAURY SINHA MD, PhD - [id number] Dictated by: AMAURY SINHA MD, PhD - [id number] Dictated Date/Time: 07.11.19 1:11 AM DENTAL PRACTICE MANAGER Transcribed Date/Time: 07.11.2021 1:11 AM DENTAL PRACTICE MANAGER Electronically Signed By: ANIYAH SINHA MD, PhD - [id number] on 07.11.2021 1:11 AM C Specimen Urine Performing Organization Address City/[facility] Phon e Number [facility] CANCER Unless otherwise noted, [address] all lab tests performed by: Division of Pathology and Laboratory Medicine [address] [place] [address] Isabell Streptococcus pneumoniae Urine Antigen (07/08/2021 5:17 PM DENTAL PRACTICE MANAGER) Streptococcal Urine Presumptive negative for S. pneumoniae antigen in the urine, suggesting no current or recent pneumococcal infection. However, infection due to S. pneumoniae cannot be completely ruled out since the leve [facility] Antigen Interpretation l of antigen present in the urine may be below the CANCER CENTER detection limit of the test. Streptococcal Urine Negative [facility] Antigen Interpretation CANCER CENTER Specimen Urine Performing Organization Address City/[facility]/ZIP Code Phon e Number [facility] CANCER Unless otherwise noted, [address] [address] all lab tests performed by: Division of Pathology and Laboratory Medicine [address] [place] [address] Legionella Urine Antigen (07/08/2021 5:17 PM DENTAL PRACTICE MANAGER) Legionella Urine Negative for L. pneumophila serogroup 1 antigen, suggesting no recent or current infection. However, infections due to other serogroups and species of Legionella are not detected by this assay. In addition, antigen may not be present in the urine in [facility] Antigen Interpretation early infection and the leve l of antigen present in the urine may be below the detection limit of the test. CANCER C ENTER Legionella Urine Negative [facility] Antigen Interpretation RUST Specimen Urine Performing Organization Address [facility] Phon e Number [facility] CANCER Unless otherwise noted, [address] all lab tests performed by: Division of Pathology and Laboratory Medicine [address] [place] [address] General Laboratory Add-On Test (07/08/2021 3:35 PM DENTAL PRACTICE MANAGER) Pathologist Sig nature Ordered Test Added [facility] Test Needed Procalcitonin [facility] Specimen Existing Performing Organization Address City/[facility] Phon e Number [facility] CANCER Unless otherwise noted, [address] all lab tests performed by: Division of Pathology and Laboratory Medicine [address] [place] [address] MRSA Screening Culture (07/08/2021 3:23 PM DENTAL PRACTICE MANAGER) Final Report No Methicillin resistant [facility] Staphylococcus aureus CANCER CENTER isolated. Path Review Culture yield may be affecte d by sample quality, prior treatment, and transportation conditions. [facility] ... CANCER CENTER The results have been reviewed and electronically sign ed by Pathologist: Amaury Sinha MD, PhD #[id number] Specimen Nasal Performing Organization Address City/[facility]/ZIP [facility] Phon e Number [facility] CANCER Unless otherwise noted, [address] all lab tests performed by: Division of Pathology and Laboratory Medicine [address] [place] [address] CT Chest Pulmonary Embolism with Contrast (07/08/2021 1:38 PM DENTAL PRACTICE MANAGER) Anatomical Region Laterality Modality Chest Computed Tomography Specimen Impressions [id number] - 07/08/2021 2:09 PM DENTAL PRACTICE MANAGER There are no pulmonary emboli. There are new findings in the left lower lobe raising the possibility of aspiration/pneumonia. Narrative [id number] - 07/08/2021 2:09 PM DENTAL PRACTICE MANAGER FULL RESULT: Examination: CT CHEST PULMONARY EMBOLISM [...] the possibility of aspiration/pneumonia. Performing Organization Address [facility] Code Phon e Number [id number] XR Abdomen AP (07/08/2021 1:31 PM DENTAL PRACTICE MANAGER) Anatomical Region Laterality Modality Abdomen Digital Radiography Specimen Impressions [id number] - 07/08/2021 1:34 PM DENTAL PRACTICE MANAGER Feeding tube tip overlying the gastric f undus. Recommend further advancement. Narrative [id number] - 07/08/2021 1:34 PM DENTAL PRACTICE MANAGER FULL RESULT: Examination: XR ABDOMEN AP on [...] undus. Recommend further advancement. Performing Organization Address [facility] Phon e Number [id number] (ABNORMAL) POC Chem 8 without Hemoglobin and Hematocrit (07/08/2021 12:14 PM DENTAL PRACTICE MANAGER) POC NA 131 (L) 138 - 146 [...] 18 and older. According to the National [facility]'s Kidney Disease Outcome Quality [...] 18 and older. According to the National [facility]'s Kidney Disease Outcome Quality [...] Clean Dev Yes POC TELCOR [facility] P[facility] Clinical Lab, [address] [place] [id number]; Media Relations Specialist: Loida Chavez MD Specimen Blood Performing Organization Address City/[facility]/ZIP Code Phon e Number POC TELCOR POC Critical (07/08/2021 12:14 PM DENTAL PRACTICE MANAGER) Pathologist Sig nature POC Critical Comment See NoteComment: POC TELCOR Test performer notified Ordering Licensed Provider and /or designee of POC Potassium critical Results. Specimen Blood Performing Organization Address [facility] Phon e Number POC TELCOR (ABNORMAL) Procalcitonin (07/08/2021 12:13 PM DENTAL PRACTICE MANAGER) Procalcitonin 0.15 (H) <=0.08 ng/mL [facility] Comment: CANCER CENTER Procalcitonin > [...] with extended dilution as it exceeds the aircraft line assembler's recommended limit. Caution should be exercised when interpreting such values and done in conjunction with clinical context. Specimen Blood Performing Organization Address [facility] Phon e Number [facility] CANCER Unless otherwise noted, [address] all lab tests performed by: Division of Pathology and Laboratory Medicine [facility] (ABNORMAL) Cardiac Panel (07/08/2021 12:13 PM DENTAL PRACTICE MANAGER) CK 112 39 - 308 U/L [facility] CK MB 2.4 <=10.4 ng/mL [facility] Troponin T 36 (H) <=18 ng/L [facility] Comment: CANCER CENTER < 19 [...] low results. Specimen Blood Performing Organization Address [facility] Phon e Number [facility] CANCER Unless otherwise noted, [address] all lab tests performed by: Division of Pathology and Laboratory Medicine [address] (ABNORMAL) D Dimer (07/08/2021 12:13 PM DENTAL PRACTICE MANAGER) D-Dimer 0.77 (H) 0.10 - 0.50 [facility] Comment: mcg/ml FEU [facility] Rechecked and Verified The cut off value for exclusion of venous thromboembol ism is <0.51 mcg/mL FEUs (fibrinogen equivalent units). Specimen Blood Performing Organization Address [facility] Phon e Number [facility] CANCER Unless otherwise noted, [address] all lab tests performed by: Division of Pathology and Laboratory Medicine [address] [facility] X-ray Chest 1 View (07/08/2021 11:38 AM DENTAL PRACTICE MANAGER) Anatomical Region Laterality Modality Chest Digital Radiography Specimen Impressions [id number] - 07/08/2021 11:41 AM DENTAL PRACTICE MANAGER No acute infiltrates are visualized. Narrative [id number] - 07/08/2021 11:41 AM DENTAL PRACTICE MANAGER FULL RESULT: Examination: XR CHEST 1 VW, [...] Organization Address City/State/ZIP Code Phon e Number [id number] CT Head without Contrast (07/08/2021 11:05 AM DENTAL PRACTICE MANAGER) Anatomical Region Laterality Modality Head Computed Tomography Specimen Impressions [id number] - 07/08/2021 11:37 AM DENTAL PRACTICE MANAGER No acute intracranial abnormality. Narrative [id number] - 07/08/2021 11:37 AM DENTAL PRACTICE MANAGER FULL RESULT: EXAMINATION: CT HEAD WO CONTRAST [...] Organization Address City/State/ZIP Code Phon e Number [id number] (ABNORMAL) NT-Pro BNP (In-House) (06/22/2021 11:54 AM DENTAL PRACTICE MANAGER) Pathologist Sig [facility] NT ProBNP 1,199 (H) <=125 pg/mL [facility] Specimen Blood Performing Organization Address City/State/ZIP Code Phon e Number [facility] CANCER Unless otherwise noted, [address] all lab tests performed by: Division of Pathology and Laboratory Medicine [address] CKMB (06/22/2021 11:54 AM DENTAL PRACTICE MANAGER) Pathologist Sig [facility] CK MB 2.6 <=10.4 ng/mL [facility] Specimen Blood Performing Organization Address City/State/ZIP Code Phon e Number [facility] CANCER Unless otherwise noted, [address] all lab tests performed by: Division of Pathology and Laboratory Medicine [address] Creatine Kinase (06/22/2021 11:54 AM DENTAL PRACTICE MANAGER) Pathologist Sig nature CK 84 39 - 308 U/L [facility] Specimen Blood Performing Organization Address City/State/ZIP Code Phon e Number [facility] CANCER Unless otherwise noted, [place] [address] CENTER all lab tests performed by: Division of Pathology and Laboratory Medicine [address] [facility] CT Head/Neck Simulation without Contrast (06/21/2021 9:00 AM DENTAL PRACTICE MANAGER)Only the most recent of2 resultswithin the time period is included. Anatomical Region Laterality Modality Head, Neck Computed Tomography Specimen Narrative Systemgenerated, Documentation - 022 9:00 AM DENTAL PRACTICE MANAGER This procedure requires no interpretatio n from the radiologist. COVID-19 (MAURA-CoV-2) PCR Asymptomatic (05/11/2021 9:05 AM DENTAL PRACTICE MANAGER)Only the most recent of2 resultswithin the time period is included. COVID19 SARS Pre-Out of OR [facility] Indication Procedure CAN[facility]ER CENTER COVID19 SARS Result Not Detected Not Detected [facility] COVID19 SARS SARS-CoV-[address] [facility] Interpretation CANCER CENTER Reference Range: Not Detected Methodology: The Fontane[employer] Real Time SARS-CoV-2 assay is a qualitative real-time reverse rfid specialist polymerase chain reaction (buckle frame shaper-PCR) test to detect RNA from SARS-CoV-2 in nasal, nasopharyngeal and oropharyngeal swabs from patients with signs and symptoms of infection who ar e suspected of COVID-19 by their health care provider. The Fontane[employer] RealTime SARS-CoV-2 performed on the DiscGenics000 System is a dual target assay with [...] high- complexity Molecular Diagnostics Laboratory (MDL) at [facility] under the Food and Drug Administration (FDA) s Emergency Use Authorization. Factsheet for patients: https://www.[facility].org/Abb ottFactSheetPatients Factsheet for healthcare pro viders: https://www.[facility].org/AbbottFactSheetHCP Test performed by: [facility] Diagnostic [facility] [address] [place] [address] Specimen Nasopharyngeal Swab Performing Organization Address City/[facility] Phon e Number [facility] CANCER Unless otherwise noted, [place] [address] CENTER all lab tests performed by: Division of Pathology and Laboratory Medicine [address] Orthopantogram (05/06/2021 10:53 AM DENTAL PRACTICE MANAGER) Anatomical Region Laterality Modality Other Specimen Narrative Systemgenerated, Documentation - 021 10:53 AM DENTAL PRACTICE MANAGER This procedure requires no interpretatio n from the radiologist. PINKED EDGE SEWING MACHINE OPERATOR Videostroboscopy (05/06/2021 9:58 AM DENTAL PRACTICE MANAGER) Narrative OLYMPUS - 05/06/2021 9:58 AM DENTAL PRACTICE MANAGER Sara Harris, PhD 05/06/2021 10:12 AM PINKED EDGE SEWING MACHINE OPERATOR Videostroboscopy Laterality (if applicable): right Date/Time: 05/06/2021 9:58 AM Provider Information: Performed by: Sara Harris, PhD Authorized by: OUMAR Staples Indication: Indications for procedure: abnormal symp paulo Abnormal symptom: dysphonia Anesthesia: Local anesthesia used?: local anesthesia used Anesthesia: topical application Local anesthetic: lidocaine spray Sedation: Patient sedated?: patient not sedated Performing Organization Address City/State/[facility] Phon e Number OLYMPUS Glucose, Random (05/04/2021 11:10 AM DENTAL PRACTICE MANAGER) Glucose Random 136 70 - 199 mg/dL [facility] Comment: CANCER CENTER Effective 12/29/15, the gluco se reference intervals have been updated based on [place] Diabetes Association guidelines (Standards of Medical Care in Diabetes 2016. Diabetes Care 2016; 39: S13-S22). Fasting blood glucose: Normal: 70-99 mg/dL Impaired fasting glucose (in creased risk for diabetes or pre-diabetes): 100- 125 mg/dL Diabetes mellitus: >/=126 mg/dL Random blood glucose: Normal: 70-199 mg/dL Note: Random glucose >100 mg/dL is assoc iated with increased risk for diabetes Specimen Blood Narrative [facility] CANCER RIPLEY - 12:55 PM DENTAL PRACTICE MANAGER Not fasting Performing Organization Address City/[facility] Phon e Number [facility] CANCER Unless otherwise noted, [address] all lab tests performed by: Division of Pathology and Laboratory Medicine [address] [place] [address] Vitamin D 25OH (05/04/2021 11:10 AM DENTAL PRACTICE MANAGER) Pathologist [facility] Vitamin D 25 OH 42 30 - 100 ng/mL [facility] Comment: CANCER CENTER Reference Range: Deficiency: <10 ng/mL Insufficiency: 10-29 ng/mL Sufficiency: 30-100 ng/mL Potential toxicity: >100 ng/mL Specimen Blood Performing Organization Address [facility] Phon e Number [facility] Unless otherwise noted, [address] all lab tests performed by: Division of Pathology and Laboratory Medicine [address] [place] [address] Williams TMP HCV Ab Path Interp (05/03/2021 8:26 AM DENTAL PRACTICE MANAGER) Pathologist [facility] HCV Ab Path There is NO serologic evidence of Hepatitis C vi autumn antibody. [facility] Interp Comment: CENTER RUFINO FERNANDEZ, Dictated by: RUFINO FERNANDEZ, Dictated Date/Time: 05.04.20 6:33 AM DENTAL PRACTICE MANAGER Transcribed Date/Time: 05.04.2021 6:33 AM DENTAL PRACTICE MANAGER Electronically Signed By: RUFINO FERNANDEZ, on 1 07.05.2020 6:33 AM C Specimen Blood Performing Organization Address City/[facility] Phon e Number [facility] [address] [place] [address] Hepatitis C Virus Ab (05/03/2021 8:26 AM DENTAL PRACTICE MANAGER) Pathologist [facility] HCVAb. Non Reactive Non Reactive [facility] Comment: CENTER Antibody detection in the im munocompromised and immunosuppressed population may be delayed or absent entirely. Therefore serial testing, correlation with other clinical findings, and supplemental testin g (if available) should be taken into consideration when interpreting the results. Performed at: [facility] [address] [place] [address] Specimen Blood Performing Organization Address City/State/ZIP Code Betsy Maradiaga [facility] [address] [place] [address] POC Creatinine (05/03/2021 6:56 AM DENTAL PRACTICE MANAGER) POC Crea 1.2 0.6 - 1.3 POC [...] 18 and older. According to the National [facility]'s Kidney Disease Outcome Quality [...] 18 and older. According to the National [facility]'s Kidney Disease Outcome Quality [...] OP CTRComment: POC TELCOR Radiology OP CTR [facility], [address] [place] [id number]; Point of Care Media Relations Specialist: Brooke Owens MD Specimen Blood Performing Organization Address City/State/ZIP Code Phon e Number POC TELCOR OSI PET CT Skull to Mid Thigh (04/07/2021 1:24 PM CDT) Anatomical Region Laterality Modality Head Other Specimen Narrative Systemgenerated, Documentation - 1:24 PM DENTAL PRACTICE MANAGER Study acquired at another institution. For comparison only. No MD Licea originated interpretation requested or a vailable. Pathology Outside Interpretation (03/28/2021) Pathologist Sig nature Materials Received Accession#, Stained, Block, Unstained Collect ed Received [facility] Nirmal. [id number], 6 SS, 0 BLOCKS, 0 USS 03/28/2021 021 Addendum 1 Additional material received on 05/25/2021, Outside 0 SS, 3 BLOCK, 0 USS, collected on 03/28/2021. MD [facility] Addendum electronically signed Deeper levels of block (21:[id number]) were examined. The original diagnosis remains unchanged. by Rigo Pritchard MD on 06/13/2021 at 2 :17 PM Diagnosis Outside ([id number], 6 SS): [facility] E lectronically signed by Rigo Gallardo Larynx, right arytenoid, biopsy (A): MD Macho on SQUAMOUS CELL CARCINOMA, suspicious for invasion 04/21/2021 at 4:09 PM Larynx, left arytenoid, biopsy (B): Squamous mucosa with chronic inflammation, negative fo r tumor Larynx, left false vocal cord, biopsy (C): Squamous mucosa and minor salivary gland, negative for tumor [facility] Interlocking And Signal Mechanic(s) Dr. Marisela Hollingsworth [facility] has reviewed part A and concurs. Biomarker Block(s) T: A [facility] N: C Disclaimer "Some tests reported [facility] here may have been developed and performance characteristics determined by [facility] Pathology and Laboratory Medicine. These tests have not been specifically cleared or approved by the U.S. Food and Drug Administration. If applicable, controls were reviewed and showed appropriate reactivity." Specimen Tissue Performing Organization Address City/State/ZIP Code Phon e Number [facility] [place] [address] [address] OSI Chest (03/24/2021 1:24 PM CDT) Anatomical Region Laterality Modality Chest Other Specimen Narrative Systemgenerated, Documentation - 021 1:24 PM DENTAL PRACTICE MANAGER Study acquired at another institution. For comparison only. No [facility] originated interpretation requested or a vailable. after 09/30/2020 Insurance Payer Benefit Plan Subscriber ID Effective Phone Address Typ e / Group Dates MEDICARE MEDICARE PART [id number] 2014-Prese [phone] [facility] Medicare A AND B nt 82 SOLUTIONS [address] OUMAR HUTTON [phone] [employer] OF [id number] 2015-Prese [id number] [facility] EVGENY PEPPER [place] [phone] (Work) Roland Lam Personal/Family Self [address] ([place]) [place] [address] Advance Directives Code Status Date Activated Date Inactivated Comments Full Code 08/26/2021 7:24 PM 08/31/2021 6:23 PM Full Code 08/25/2021 9:45 PM 08/26/2021 7:24 PM Full Code 07/08/2021 4:32 PM 07/12/2021 11:02 PM Care Teams Production Reproduction Manager Relationship Specialty Start Date End Date JaredOlivia PCP - External Otolaryngology 04/13/21 [address] [place], [place] [id number] Slava Canseco, PCP - General Radiation Oncology 04/25/[address] [place] [phone] Yumi Desir MD Consulting Physician Head and Neck Medical 05/13/[address] [place] [address] [place] [address] Ene Polk MD Consulting Physician Head and Neck Surgery 05/13/[address] [place] [phone] Camilla Davenport, Clinical Dietitian Nutrition 07/19/[address] [place] [address] Anca Maurer, Nurse Practitioner Head and Neck Medical 08/15/21 DOCUMENT REVIEWER Oncology [address] [place] [phone] Michael Lam, Consulting Physician Gastroenterology, 09/05/21 Hepatology and Nutrition [address] [place] [id number] Brady Payan, Consulting Physician Gastroenterology, 09/07/21 Hepatology and Nutrition [address] [place] [phone]
--- OUTSIDE RECORDS SUMMARY | 2021-09-30 16:29 | XMS REPORT | Continuity of Care Document ---
:1950 Author Organization [facility] t Address [address] [place] [address] Care Team Providers Name Role Phone [phone] Primary Care Physician Unavailable SYSTEM, NOT IN Attending Clinician Unavailable Arnaldo Bullard Attending Clinician Unavailable ZANDRA Attending Clinician Unavailable ALOK ARIZA Attending Clinician Unavailable Alok Ariza MD Attending Clinician Sarbjit BOWEN Attending Clinician Fermin Attending Clinician Jam CRAWLEY M Attending Clinician Samantha POLK Attending Clinician Unavailable Jordan CCC-JAVA WEB DEVELOPER Attending Clinician Ethel BOWEN, A Attending Clinician Ruben RAAY Attending Clinician Unavailable Ruben Raya MD Attending Clinician Loy MENDEZ, S Attending Clinician Unavailable Eunice OSEGUERA Attending Clinician EUNICE Attending Clinician Unavailable Kerline Arrington Attending Clinician Gloria BOWENS, M Attending Clinician Alta Latif Attending Clinician Clemons, H Attending Clinician Unavailable Andres CCC-JAVA WEB DEVELOPER, H Attending Clinician Connolly CCC-JAVA WEB DEVELOPER, L Attending Clinician Unavailable Erasto MELENDEZN, H Attending Clinician Dejan BOWENS, Elza Attending Clinician Unavailable Duran Pardo MD Attending Clinician Elza Ferrell MD Attending Clinician Nirmal Rain MD. Attending Clinician Wendi CRAWLEY Attending Clinician Rajendra Brooks MD Attending Clinician Rachid CRAWLEY Attending Clinician Sienna CRAWLEY Attending Clinician SIENNA Attending Clinician Unavailable Miguel Lam MD. Attending Clinician Callum CCC-JAVA WEB DEVELOPER, M Attending Clinician Unavailable Jenny Deras MD Attending Clinician Delbert MATHUR Attending Clinician Pb TORO Attending Clinician Unavailable Harman BARRIGA Attending Clinician Miguel PEREZ Attending Clinician Unavailable Carina CCC-JAVA WEB DEVELOPER Attending Clinician Miguel Buck Attending Clinician Stephanie CCC-JAVA WEB DEVELOPER, M Attending Clinician Unavailable Miguel Reyes RN. [...] Unavailable Marisela Bonilla MD Attending Clinician Francisco RN, C Attending Clinician Unavailable PADMINI Attending Clinician Unavailable JEREL Attending Clinician Unavailable Jerel CRAWLEY Attending Clinician Katie BOWENS, B Attending Clinician Unavailable Savannah Polk PharmD Attending Clinician Kathy CCC-JAVA WEB DEVELOPER, E Attending Clinician Katty BOWENS, N Attending Clinician Unavailable Melvina CRAWLEY, Skinny Attending Clinician SHAGUFTA PRUITT Attending Clinician Unavailable Favio CRAWLEY, Shagufta Attending Clinician Maine CRAWLEY Attending Clinician MAINE Attending Clinician Unavailable JANAE Attending Clinician Unavailable Galo BOWENS Attending Clinician Unavailable Jacob BOWENS, J Attending Clinician Unavailable Patrick CRAWLEY, Dulce Attending Clinician Song CCC-JAVA WEB DEVELOPER, H Attending Clinician Unavailable Melita OSEGUERA Attending [...] Expiration Date Skinny sanchez MEDICARE PART A [id number] 2014 AND B 00:00:00 SPARKLE [id number] 2015 00:00:00 Problems Condition Condition Condition Status Onset Resolution Last Treating Co mments Source Name Details Category Date Date Treatment Clinician Date Melena Melena Disease Active MD 3-25 Anderso 00:00: n 00 Anemia Anemia [...] Hypomagnes Disease Active M D emia emia 05 Anderso 00:00: n 00 Bilateral Bilateral Disease Active MD tinnitus tinnitus 06-08 Chucky o 00:00: n 00 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 208 An derso lung lung 00:00: n 00 Nicotine Nicotine Disease Active 2020-06 MD dependence dependence 2-06 An derso 00:00: n 00 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 2020-06 M D ryngeal ryngeal - Anderso reflux reflux 00:00: n 00 Essential [...] Type 2 Type 2 Disease Recurre 2009-06 MD diabetes diabetes nce 1-22 Chucky o [...] Syncope Syncope Disease Resolve 2021-08-27 2021-08-27 d 2- 00:00:00 14:15:54 Chucky o 00:00: n 00 [...] Obese Obese Disease Resolve 2021-06-29 2021-06-29 MD rivera 06-29 00:00:00 13:45:01 Chucky o 00:00: n [...] Not [facility] Reaction Available [facility] Family History Family Member Diagnosis [...] -acetaminop 3-13 mucositis tablets by Anderso hen ([place]) 00:00: due to mouth n 5 mg-325 [...] Yes Essential 10mg Give 1 MD (NORVASC) 2-09 hypertensio tablet (10 Anderso 10 mg 00:00: n mg) per n tablet 00 NG-tube daily. folic acid Yes Folate 1mg Take 1 MD (FOLVITE) 1 2-09 deficiency tablet (1 Anderso mg tablet 00:00: mg) by n 00 mouth daily. thiamine 0 Yes Hypophospha 100mg Take 1 MD (VITAMIN 2-09 temia tablet Anderso B-1) 100 mg 00:00: (100 mg) n tab tablet 00 by mouth daily. amoxicillin 0 2- No Aspiration 875mg Take 1 MD -clavulanat [...] No Aspiration 875mg Take 1 MD -clavulanat 2-08 [...] No Constipatio 1{tbl} Take 1-3 MD ate 1-26 03-30 n, not tablets by Chucky o (SENOKOT-S) 00:00: 00:00 otherwise mouth n 8.6 mg-50 00 :00 specified twice mg tablet daily. glycopyrrol 2021- No Thick 1mg Take 1 MD ate 1-26 02-08 sputum tablet (1 Anderso (RobinuL) 1 [...] No Neuropathic 300mg Take 1 MD (Neurontin) 07-26 03-21 pain capsule Arthur rso 300 mg 00:00: 00:00 (300 mg) n capsule 00 :00 by mouth 3 (three) times a day. ondansetron 2020-06- No Primary 8mg Take 1 MD (ZOFRAN) 8 - 12-15 squamous tablet (8 Anderso mg tablet 00:00: 05:59 cell mg) by n 00 :00 carcinoma mouth of larynx every 8 (eight) hours as needed for nausea or vomiting. prochlorper 2020-06 No Primary 10mg Take 1 MD azine 07-18 02-09 squamous tablet (10 And erso (Compazine) [...] twice n 1.1 % 00 daily. dental [facility] cream teeth with cream and spit out [...] No TAKE ONE M D (SINGULAIR) 1-04 -30 (1) Anderso 10 mg 00:00: 00:00 TABLET(S) [...] 2021- No TAKE ONE M D nanocrystal 9-07 30 (1) Anderso lized 00:00: 00:00 TABLET(S) n (TRICOR) 00 :00 BY MOUTH 145 mg ONCE A tablet DAY. Metformin Metformin Yes Na Bullard [address] [facility] HCl HCl 7-02 with a [facility] - 00:00: meal [facility] 00 [facility] Montelukast Montelukast Yes Na Bullard [address] [facility] Sodium Sodium 4-21 [facility] - 00:[facility]: [facility] 00 [facility] ent [facility] ferrous 0 Yes MD sulfate 3-15 Anderso (iron) 325 00:00: n mg (65 mg 00 elemental iron per tablet) tablet aspirin 81 2009-06 Yes 81mg Take 81 mg M D mg EC 1-22 by mouth. Anderso tablet 00:00: n 00 Nevaeh Herring Yes Na Bullard [address] [facility] Clinics Metoprolol Metoprolol Yes Na Bullard [address] [facility] Tartrate Tartrate with food Myah kes - [facility] ent Clinics Dexilant Dexilant Yes Na Bullard TAKE ONE [facility] (1) [facility] - CAPSULE(S) Memoria BY MOUTH l ONCE A Outpati DAY. ent Clinics Plavix Plavix Yes Na Bullard [address] [facility] Plavix Plavix Yes Na Bullard [address] [facility] Ventolin Ventolin Yes Na Bullard [address] [facility] HFA HFA needed [facility] Nicotine Nicotine Yes Na Bullard [address] [facility] Step 1 Step 1 skin [facility] Cetirizine Cetirizine Yes Na Bullard [address] [facility] HCl HCl [facility] Cetirizine Cetirizine Yes Na Bullard TAKE ONE [facility] HCl HCl (1) [facility] - TABLET(S) Memoria BY MOUTH l ONCE A Outpati DAY. ent Clinics Simvastatin Simvastatin Yes Na Bullard [address] [facility] in the [facility] - evening [facility] ent [facility] Nystatin Nystatin Yes Na Bullard [address] [facility] Fenofibrate Fenofibrate Yes Na Bullard [address] [facility] with food [facility] Symbicort Symbicort Yes Na Bullard [address] [facility] Flonase Flonase Yes Na Bullard [address] [facility] each [facility] - nostril [facility] ent [facility] Immunizations Ordered Immunization Filled Immunization Date Status [...] TISSUE NECK W 2021-09-20 21:26:19 Alexandra Dawson MD [facility] CONTRAST CT CHEST W CONTRAST 2021-09-20 21:26:19 Alexandra Dawson MD BLOOD UREA NITROGEN 2021-09-20 16:58:00 Alexandra Dawson MD [facility] SERUM CREATININE 2021-09-20 16:58:00 Alexandra Dawson MD THYROID STIMULATING HORMONE 2021-09-20 16:58:00 Alexandra Dawson MD FREE THYROXINE 2021-09-20 16:58:00 Alexandra Dawson MD SERUM CREATININE 2021-09-20 16:58:00 Alexandra Dawson MD .GLOMERULAR FILTRATION RATE 2021-09-20 16:58:00 Alexandra Dawson MD POC GLUCOSE SCREEN 2021-08-31 15:15:00 Davis Rush MD on BASIC METABOLIC PANEL, 2021-08-31 09:26:00 Leida Frank MD CALCIUM TOTAL MAGNESIUM LEVEL 2021-08-31 09:26:00 Leida Frank MD PHOSPHORUS LEVEL 2021-08-31 09:26:00 Leida Frank MD COMPLETE BLOOD COUNT W/ 2021-08-31 09:26:00 Leida Frank MD DIFFERENTIAL GLUCOSE LEVEL 2021-08-31 09:26:00 ThoppilLeida MD BLOOD UREA NITROGEN 2021-08-31 09:26:00 ThoppilLeida MD Arthur rson ELECTROLYTE PANEL 2021-08-31 09:26:00 ThoppiLeida cole MD on SERUM CREATININE 2021-08-31 09:26:00 ThoppilLeida MD Andadele patel .GLOMERULAR FILTRATION RATE 2021-08-31 09:26:00 ThoppilLeida MD CALCIUM LEVEL TOTAL 2021-08-31 09:26:00 Thoppil, Leida Hargrove MD Arthur rson Results CBC 2021-08-31 09:26:00 ThoppilLeida MD MANUAL DIFFERENTIAL 2021-08-31 09:26:00 Thoppil, Leida Hargrove MD Arthur rson POC GLUCOSE SCREEN 2021-08-31 03:06:00 Sienna, Davis Locke on POC GLUCOSE SCREEN 2021-08-30 21:50:00 Fortique, Davis Locke on FL MODIFIED BARIUM SWALLOW W 2021-08-30 20:15:38 Robert Rashid MD SPEECH POC GLUCOSE SCREEN 2021-08-30 17:35:00 Sienna, Davis Locke on POC GLUCOSE SCREEN 2021-08-30 12:52:00 Fortsusan, Davis Locke on BASIC METABOLIC PANEL, 2021-08-30 09:36:00 ThoppilLeida MD nderson CALCIUM TOTAL MAGNESIUM LEVEL 2021-08-30 09:36:00 ThoppilLeida MD PHOSPHORUS LEVEL 2021-08-30 09:36:00 ThoppilLeida MD Andreginaldo n COMPLETE BLOOD COUNT W/ 2021-08-30 09:36:00 ThoppilLeida MD DIFFERENTIAL GLUCOSE LEVEL 2021-08-30 09:36:00 ThoppiLeida cole MD BLOOD UREA NITROGEN 2021-08-30 09:36:00 ThoppilLeida MD Arthur rson ELECTROLYTE PANEL 2021-08-30 09:36:00 ThoppiLeida cole MD on SERUM CREATININE 2021-08-30 09:36:00 ThopLeida waddell MD .GLOMERULAR FILTRATION RATE 2021-08-30 09:36:00 ThopLeida waddell MD CALCIUM LEVEL TOTAL 2021-08-30 09:36:00 ThopLeida waddell MD Arthur rson Results CBC 2021-08-30 09:36:00 ThopLeida waddell MD MANUAL DIFFERENTIAL 2021-08-30 09:36:00 ThoppiLeida cole MD Arthur rson POC GLUCOSE SCREEN 2021-08-30 03:07:00 Davis Rush MD on XR ABDOMEN 1 VW PORTABLE 2021-08-29 23:11:44 Davis Rush MD POC GLUCOSE SCREEN 2021-08-29 22:46:00 Davis Rush MD on POC GLUCOSE SCREEN 2021-08-29 21:32:00 Davis Rush MD on PATHOLOGY BIOPSY 2021-08-29 19:14:00 Michael Lam MD INTERPRETATION DIAGNOSTIC UPPER 2021-08-29 18:46:00 Michael Lam MD GASTROINTESTINAL ENDOSCOPY DIAGNOSTIC FLEXIBLE 2021-08-29 18:46:00 Michael Lam MD Arthur rson COLONOSCOPY PROXIMAL TO SPLENIC FLEXURE POC GLUCOSE SCREEN 2021-08-29 18:22:00 Davis Rush MD on POC GLUCOSE SCREEN 2021-08-29 15:21:00 Davis Rush MD on BASIC METABOLIC PANEL, 2021-08-29 10:31:00 ThoppiLeida cole MDrson CALCIUM TOTAL MAGNESIUM LEVEL 2021-08-29 10:31:00 Leida Frank MD PHOSPHORUS LEVEL 2021-08-29 10:31:00 ThoppiLeida cole MD COMPLETE BLOOD COUNT W/ 2021-08-29 10:31:00 ThoppiLeida cole MD DIFFERENTIAL PROTHROMBIN TIME 2021-08-29 10:31:00 Robert Rashid MD GLUCOSE LEVEL 2021-08-29 10:31:00 ThopLeida waddell MD BLOOD UREA NITROGEN 2021-08-29 10:31:00 ThoppilLeida MD Arthur rson ELECTROLYTE PANEL 2021-08-29 10:31:00 Leida Frank MD on SERUM CREATININE 2021-08-29 10:31:00 HildaopLeida waddell MD Andadele patel .GLOMERULAR FILTRATION RATE 2021-08-29 10:31:00 ThoppilLeida MD CALCIUM LEVEL TOTAL 2021-08-29 10:31:00 ThoppilLeida MD Arthur rson Results CBC 2021-08-29 10:31:00 ThopcarrolllLeida MD MANUAL DIFFERENTIAL 2021-08-29 10:31:00 HildaoppiLeida cole MD Arthur rson POC GLUCOSE SCREEN 2021-08-29 02:15:00 Robert Rashid MD Chucky on POC GLUCOSE SCREEN 2021-08-28 21:24:00 Robert Rashid MD Chucky on POC GLUCOSE SCREEN 2021-08-28 13:49:00 Robert Rashid MD Chucky on BASIC METABOLIC PANEL, 2021-08-28 08:13:00 ThoppiLeida cole MD nderson CALCIUM TOTAL MAGNESIUM LEVEL 2021-08-28 08:13:00 ThoppilLeida MD PHOSPHORUS LEVEL 2021-08-28 08:13:00 ThoppilLeida MD Andreginaldo amanda COMPLETE BLOOD COUNT W/ 2021-08-28 08:13:00 ThoppiLeida cole MD DIFFERENTIAL GLUCOSE LEVEL 2021-08-28 08:13:00 ThoppiLeida cole MD BLOOD UREA NITROGEN 2021-08-28 08:13:00 HildaoppiLeida cole MD Arthur rson ELECTROLYTE PANEL 2021-08-28 08:13:00 ThopLeida waddell MD on SERUM CREATININE 2021-08-28 08:13:00 HildaopLeida waddell MD Andadele patel .GLOMERULAR FILTRATION RATE 2021-08-28 08:13:00 Leida Frank MD CALCIUM LEVEL TOTAL 2021-08-28 08:13:00 Leida Frank MD Arthur rson Results CBC 2021-08-28 08:13:00 Leida Frank MD MANUAL DIFFERENTIAL 2021-08-28 08:13:00 Leida Frank MD Arthur rson POC GLUCOSE SCREEN 2021-08-28 03:20:00 Robert Rashid MD on POC GLUCOSE SCREEN 2021-08-27 18:30:00 Robert Rashid MD on POC GLUCOSE SCREEN 2021-08-27 13:47:00 Robert Rashid MD on BASIC METABOLIC PANEL, 2021-08-27 09:47:00 Leida Frank MD nderson CALCIUM TOTAL MAGNESIUM LEVEL 2021-08-27 09:47:00 Leida Frank MD PHOSPHORUS LEVEL 2021-08-27 09:47:00 Leida Frank MD Anderso n COMPLETE BLOOD COUNT W/ 2021-08-27 09:47:00 Leida Frank MD DIFFERENTIAL GLUCOSE LEVEL 2021-08-27 09:47:00 Susan [...] GLUCOSE SCREEN 2021-08-26 17:17:00 Olegario Rain MD POC GLUCOSE SCREEN 2021-08-26 13:44:00 Olegario Rain MD ELECTROLYTE PANEL 2021-08-26 13:10:00 Susan Tadeo MD SERUM CREATININE 2021-08-26 13:10:00 Susan Tadeo MD derson .GLOMERULAR FILTRATION RATE 2021-08-26 13:10:00 Susan Tadeo MD CALCIUM LEVEL TOTAL 2021-08-26 13:10:00 Susan Tadeo MD Results CBC 2021-08-26 13:10:00 Susan Tadeo MD And naz MANUAL DIFFERENTIAL 2021-08-26 13:10:00 Susan Tadeo MD BASIC METABOLIC PANEL, 2021-08-26 13:10:00 HildaoppiLeida cole MD CALCIUM TOTAL MAGNESIUM LEVEL 2021-08-26 13:10:00 MglLeida MD PHOSPHORUS LEVEL 2021-08-26 13:10:00 HildaoppilLeida MD n COMPLETE BLOOD COUNT W/ 2021-08-26 13:10:00 Leida Frank MD DIFFERENTIAL GLUCOSE LEVEL 2021-08-26 13:10:00 Susan Tadeo MD And naz BLOOD UREA NITROGEN 2021-08-26 13:10:00 Susan Tadeo MD TRANSFUSE RED [...] UREA NITROGEN 2021-08-25 23:15:00 Bossman Castillo MD ANTIBODY SCREEN 2021-08-25 23:15:00 Bossman Castillo MD ELECTROLYTE PANEL 2021-08-25 23:15:00 Bossman Castillo MD SERUM CREATININE 2021-08-25 23:15:00 Bossman Castillo MD .GLOMERULAR FILTRATION RATE 2021-08-25 23:15:00 Bossman Castillo MD CALCIUM LEVEL TOTAL 2021-08-25 23:15:00 Bossman Castillo MD ALBUMIN LEVEL 2021-08-25 23:15:00 Bossman Castillo MD ALKALINE PHOSPHATASE 2021-08-25 23:15:00 Bossman Castillo MD rsdeya ALANINE AMINOTRANSFERASE 2021-08-25 23:15:00 Bossman Castillo MD ASPARTATE AMINOTRANSFERASE 2021-08-25 23:15:00 Bossman Castillo TOTAL PROTEIN 2021-08-25 23:15:00 Bossman Castillo MD FRACTIONATED BILIRUBIN 2021-08-25 23:15:00 Bossman Castillo MD derson CLOT EXPIRATION DATE 2021-08-25 23:15:00 Bossman Castillo MD TMP INTERPRETATION ANTIBODY 2021-08-25 23:15:00 Bossman Castillo [...] Ino SERUM CREATININE 2021-07-12 21:09:00 MD Zandra Jorgedebbie Mckinnon .GLOMERULAR FILTRATION RATE 2021-07-12 21:09:00 MD Jose [...] UREA NITROGEN 2021-07-12 07:56:00 MD Yue De Pazson Ino ELECTROLYTE PANEL 2021-07-12 07:56:00 MD Zandra Arthur rson Ino SERUM CREATININE 2021-07-12 07:56:00 MD Zandra Jorge gregor Mckinnon .GLOMERULAR FILTRATION RATE 2021-07-12 07:56:00 MD Jose [...] Mart CALCIUM LEVEL TOTAL 2021-07-11 20:33:00 MD Yeu De Paz POC GLUCOSE SCREEN 2021-07-11 18:33:00 [...] DIFFERENTIAL Maryse Results CBC 2021-07-11 07:46:00 Madelin Knigth MD Maryse MANUAL DIFFERENTIAL 2021-07-11 07:46:00 Madelin Knight MD Arthurruben matamoros Maryse POC GLUCOSE SCREEN 2021-07-11 03:45:00 [...] NITROGEN 2021-07-10 21:02:00 MD Zandra An juan Ino ELECTROLYTE PANEL 2021-07-10 21:02:00 MD Zandra Arthurruben Mckinnon SERUM CREATININE 2021-07-10 21:02:00 MD Jorge De Paz .GLOMERULAR FILTRATION RATE 2021-07-10 21:02:00 MD Jose E Mart CALCIUM LEVEL TOTAL 2021-07-10 21:02:00 MD Zandra An juan Mckinnon POC GLUCOSE SCREEN 2021-07-10 17:40:00 MD Zandra And naz Ino COMPLETE BLOOD COUNT W/ 2021-07-10 12:09:00 [...] GLUCOSE SCREEN 2021-07-09 22:30:00 MD Zandra And ersdeya Ino VASCULAR ACCESS ULTRASOUND 2021-07-09 21:00:36 MD [...] PHOSPHORUS LEVEL 2021-07-09 12:28:00 Madelin Knight MD GLUCOSE LEVEL 2021-07-09 12:28:00 Madelin Knight MD BLOOD UREA NITROGEN 2021-07-09 12:28:00 Madelin Knight MD Arthurruben Serra ELECTROLYTE PANEL 2021-07-09 12:28:00 Madelin Knight MD on Maryse SERUM CREATININE 2021-07-09 12:28:00 Madelin Knight MD .GLOMERULAR FILTRATION RATE 2021-07-09 12:28:00 Madelin Knight MD CALCIUM LEVEL TOTAL 2021-07-09 12:28:00 Madelin Knight MD Arthur rsdeya Serra Results CBC 2021-07-09 12:28:00 Madelin Knight MD MANUAL DIFFERENTIAL 2021-07-09 12:28:00 Madelin Knight MD Arthur rsdeya Serra POC GLUCOSE SCREEN 2021-07-09 04:08:00 Madelin Knight [...] MD COMPLETE BLOOD COUNT W/ 2021-07-08 18:13:00 Koffi, Olegario Dorantes DIFFERENTIAL COMPREHENSIVE METABOLIC PANEL 2021-07-08 18:13:00 Donny Rain MD MAGNESIUM LEVEL 2021-07-08 18:13:00 Rain, Olegario Gamez MD Arthur rson PHOSPHORUS LEVEL 2021-07-08 18:13:00 Koffi, Olegario Gamez MD And erson PROTHROMBIN TIME 2021-07-08 18:13:00 Koffi, Olegario Gamez MD And erson APTT 2021-07-08 18:13:00 Koffi, Olegario Gamez MD Arthur rson D DIMER 2021-07-08 18:13:00 Koffi, Olegario Gamez MD Arthur rson CARDIAC PANEL 2021-07-08 18:13:00 Koffi, Olegario Gamez MD Arthur rson Results CBC 2021-07-08 18:13:00 Koffi, Olegario Gamez MD Arthur rson MANUAL DIFFERENTIAL 2021-07-08 18:13:00 Olegario Rain MD GLUCOSE LEVEL 2021-07-08 18:13:00 Koffi, Olegario Gamez MD Arthur rson BLOOD UREA NITROGEN 2021-07-08 18:13:00 Olegario Rain MD ELECTROLYTE PANEL 2021-07-08 18:13:00 [facility] 2021-07-08 18:13:00 Koffi, Olegario Gamez [...] Yumi Lorenz MD Results CBC 2021-07-04 17:10:00 Yuim Lorenz MD MANUAL DIFFERENTIAL 2021-07-04 17:10:00 Yumi [...] FRACTIONATED BILIRUBIN 2021-06-27 14:00:00 Yumi Lorenz MD Results CBC 2021-06-27 14:00:00 Yumi Lorenz MD MANUAL DIFFERENTIAL 2021-06-27 14:00:00 Yumi Lorenz MD Jorge son TROPONIN T 2021-06-22 21:45:00 Nichole Beltrán MD COVID-19 (SARS-COV-2) 2021-06-22 17:54:00 Susan Ugalde MD ASYMPTOMATIC-LT COMPLETE BLOOD COUNT W/ 2021-06-22 17:54:00 Susan Ugalde MD DIFFERENTIAL COMPREHENSIVE METABOLIC PANEL 2021-06-22 17:54:00 Susan Ugalde MD MAGNESIUM LEVEL 2021-06-22 17:54:00 Susan Ugalde MDson PHOSPHORUS LEVEL 2021-06-22 17:54:00 Susan Ugalde MDon NT PRO BNP 2021-06-22 17:54:00 Susan Ugalde MDson CREATINE KINASE 2021-06-22 17:54:00 Susan Ugalde MDson CKMB 2021-06-22 17:54:00 Susan Ugalde MD derson Results CBC 2021-06-22 17:54:00 Susan Ugalde MDson [...] ALKALINE PHOSPHATASE 2021-06-20 14:07:00 Yumi Lorenz MD ALANINE AMINOTRANSFERASE 2021-06-20 14:07:00 Yumi Lorenz MD ASPARTATE AMINOTRANSFERASE 2021-06-20 14:07:00 Yumi Lorenz TOTAL PROTEIN 2021-06-20 14:07:00 Yumi Lorenz MD FRACTIONATED BILIRUBIN 2021-06-20 14:07:00 Yumi Lorenz MDson Results CBC 2021-06-20 14:07:00 Yumi Lorenz MD MANUAL DIFFERENTIAL 2021-06-20 14:07:00 [facility] COMPREH[facility] METABOLIC PANEL 2021-06-13 13:00:00 Yumi Lorenz MD COMPLETE BLOOD COUNT W/ 2021-06-13 13:00:00 Yumi Lorenz MDrson DIFFERENTIAL MAGNESIUM LEVEL 2021-06-13 13:00:00 Yumi Lorenz MD PHOSPHORUS LEVEL 2021-06-13 13:00:00 Yumi Lorenz MD GLUCOSE LEVEL 2021-06-13 13:00:00 Yumi Lorenz MD BLOOD UREA NITROGEN 2021-06-13 13:00:00 Yumi Lorenz MD [facility] ELECTROLYTE PANEL 2021-06-13 13:00:00 Yumi Lorenz MD amanda SERUM CREATININE 2021-06-13 13:00:00 Yumi Lorenz MD .GLOMERULAR FILTRATION RATE 2021-06-13 13:00:00 Yumi Lorenz MD CALCIUM LEVEL TOTAL 2021-06-13 13:00:00 Yumi Lorenz MD [facility] ALBUMIN LEVEL 2021-06-13 13:00:00 Yumi Lorenz MD ALKALINE PHOSPHATASE 2021-06-13 13:00:00 Yumi Lorenz MD rsdeya ALANINE AMINOTRANSFERASE 2021-06-13 13:00:00 Yumi Lorenz MD ASPARTATE AMINOTRANSFERASE 2021-06-13 13:00:00 Yumi Lorenz TOTAL PROTEIN 2021-06-13 13:00:00 Yumi Lorenz MD FRACTIONATED BILIRUBIN 2021-06-13 13:00:00 Yumi Lorenz MD derson Results CBC 2021-06-13 13:00:00 Yumi Lorenz MD MANUAL DIFFERENTIAL 2021-06-13 13:00:00 Yumi Lorenz MD [facility] COMPREHENSIVE METABOLIC PANEL 2021-06-06 12:58:00 Yumi Lorenz MD COMPLETE BLOOD COUNT W/ 2021-06-06 12:58:00 Yumi Lorenz MD DIFFERENTIAL MAGNESIUM LEVEL 2021-06-06 12:58:00 Yumi Lorenz MD PHOSPHORUS LEVEL 2021-06-06 12:58:00 Yumi Lorenz MD GLUCOSE LEVEL 2021-06-06 12:58:00 Yumi Lorenz MD BLOOD UREA NITROGEN 2021-06-06 12:58:00 Yumi Lorenz MD [facility] ELECTROLYTE PANEL 2021-06-06 12:58:00 Yumi Lorenz MD SERUM CREATININE 2021-06-06 12:58:00 Yumi Lorenz MD .GLOMERULAR FILTRATION RATE 2021-06-06 12:58:00 Yumi Lorenz MD CALCIUM LEVEL TOTAL 2021-06-06 12:58:00 Yumi Lorenz MD Jorgedebbie bundy ALBUMIN LEVEL 2021-06-06 12:58:00 Yumi Lorenz MD ALKALINE PHOSPHATASE 2021-06-06 12:58:00 Yumi Lorenz MD rson ALANINE AMINOTRANSFERASE 2021-06-06 12:58:00 Yumi Lorenz MD ASPARTATE AMINOTRANSFERASE 2021-06-06 12:58:00 Yumi Lorenz TOTAL PROTEIN 2021-06-06 12:58:00 Yumi Lorenz MD FRACTIONATED BILIRUBIN 2021-06-06 12:58:00 Yumi Lorenz MD derson Results CBC 2021-06-06 12:58:00 Yumi Lorenz MD MANUAL DIFFERENTIAL 2021-06-06 12:58:00 Yumi Lorenz MD Jorge bundy COMPREHENSIVE METABOLIC PANEL 2021-05-30 14:28:00 Yumi Lorenz [...] TOTAL 2021-05-30 14:28:00 Yumi Lorenz MD Jorge bundy ALBUMIN LEVEL 2021-05-30 14:28:00 Yumi Lorenz MD ALKALINE PHOSPHATASE 2021-05-30 14:28:00 Yumi Lorenz MD rson ALANINE AMINOTRANSFERASE 2021-05-30 14:28:00 Yumi Lorenz MD [...] ORTHOPANTOGRAM 2021-05-06 16:53:13 Dixie Loaiza MD Fierro [employer]AVA WEB DEVELOPER 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 2021-05-06 15:58:10 Alexandra Dawson MD ELECTROLYTE [...] MANUAL DIFFERENTIAL 2021-05-03 14:26:00 [facility]SE LEV[facility] 2021-05-03 14:26:00 Alexandra Dawson MD BLOOD UREA NITROGEN 2021-05-03 14:26:00 Alexandra [facility] ELECTROL[facility]TE PANEL 2021-05-03 14:26:00 Alexandra Dawson MDo amanda SERUM CREATININE 2021-05-03 14:26:00 Alexandra Dawson MD .GLOMERULAR FILTRATION RATE 2021-05-03 14:26:00 Alexandra Dawson MD CALCIUM LEVEL TOTAL 2021-05-03 14:26:00 Alexandra Dawson MD [facility] ALBUMIN LEVEL 2021-05-03 14:26:00 Alexandra Dawson MD [...] CONTRAST 2021-05-03 13:27:54 Alexandra Dawson MD [facility] POC CREATININE 2021-05-03 12:56:00 Alexandra Dawson MD [...] Department ID 2021-09-21 Outpatient SYSTEM, LOLITA MCHUGH [id number] 11:18:24 PROVIDER Chucky patel 2021-09-20 Outpatient Bullard, Na STLMLC STLMLC [id number] [facility] 09:33:02 [id number] [facility] 2021-09-19 Outpatient Bullard, Na STLMLC STLMLC [id number] [facility] 16:18:04 [id number] [facility] 2021-07-09 Inpatient DOROTHY HOBBS LOLITA MCHUGH [id number] 15:00:36 Jeanmarie ASKEW 2021-06-29 Outpatient Bullard, Na STLMLC STLMLC [id number] [facility] 11:54:04 [id number] [facility] 2021-06-29 Outpatient Bullard, Na STLMLC STLMLC [id number] [facility] 11:30:38 [id number] [facility] 2021-06-29 Outpatient Bullard, Na STLMLC STLMLC [id number] [facility] 11:28:27 [id number] [facility] 2021-06-29 Outpatient Bullard, Na STLMLC STLMLC [id number] [facility] [address] 11:24:06 [id number] [facility] 2021-04-13 Outpatient SYSTEM, LOLITA MCHUGH [id number] 19:44:15 PROVIDER Chucky patel 2021-09-28 2021-09-28 Outpatient DOROTHY ARIZA DARYL LOLITA MCHUGH [id number] 15:18:06 15:18:15 Chucky patel 2021-09-23 2021-09-23 Outpatient DOROTHY POLK, MDA MDA [id number] 11:00:00 23:59:00 ENE patel 2021-09-23 2021-09-23 Outpatient DOROTHY POLK, MDA MDA [id number] 10:00:00 10:59:00 ENE patel 2021-09-22 2021-09-22 ambulatory STLMLC STLMLC [id number] [facility]00 [facility] 2021-09-21 2021-09-21 Outpatient DARYL LAU MDA MDA [id number] 12:58:44 23:59:00 Chucky patel 2021-09-21 2021-09-21 Outpatient NKECHI ROGERS MDA MDA [id number] 14:34:29 16:07:25 Chucky patel 2021-09-20 2021-09-20 Outpatient DARYL LAU MDA MDA [id number] 13:05:31 23:59:00 Chucky patel 2021-09-20 2021-09-20 Outpatient DOROTHY DAWSON, MDA MDA [id number] 12:55:00 13:04:00 ALEXANDRA patel 2021-09-20 2021-09-20 Outpatient DARYL LAU MDA MDA [id number] 11:00:00 12:01:00 Chucky patel 2021-09-20 2021-09-20 Outpatient DOROTHY DAWSON, MDA MDA [id number] 10:45:00 10:59:00 ALEXANDRA patel 2021-09-19 2021-09-19 ambulatory STLMLC STLMLC [id number] [facility]00 [facility] 2021-09-07 2021-09-07 Outpatient DARYL LAU MDA MDA [id number] 14:30:45 14:30:45 Chucky o amanda 2021-09-07 2021-09-07 Outpatient DARYL LAU MDA MDA [id number] 12:16:23 12:16:23 Chucky o amanda 2021-09-06 2021-09-06 Outpatient DOROTHY DAWSON MDA MDA [id number] 14:15:00 23:59:00 ALEXANDRA patel 2021-09-06 2021-09-06 ambulatory STLMLC STLMLC [id number] [facility]00 [facility] 2021-09-05 2021-09-05 Outpatient DARYL LAU MDA MDA [id number] 10:24:00 10:24:00 Chucky o amanda 2021-08-25 2021-08-31 Inpatient UR FORTSUSAN, MDA Hosp Med [id number] 17:50:00 16:18:00 DAVIS Locke o amanda 2021-08-31 2021-08-31 Inpatient DARYL LAU MDA MDA [id number] 14:19:25 14:19:27 Chucky o amanda 2021-08-29 2021-08-29 Inpatient DARYL LAU MDA MDA [id number] 10:07:53 10:07:55 Chucky o amanda 2021-08-26 2021-08-26 Outpatient DOROTHY TORO, MDA MDA [id number] 00:20:55 00:34:46 SUSAN Locke o amanda 2021-08-25 2021-08-25 Outpatient DOROTHY PEREZ, MDA MDA [id number] 12:28:34 12:35:55 DAVINA Patel so amanda 2021-08-25 2021-08-25 Outpatient DARYL LAU MDA MDA [id number] 10:54:44 10:54:44 Chucky o amanda 2021-08-22 2021-08-22 Outpatient DOROTHY DAWSON MDA MDA [id number] 09:00:00 23:59:00 ALEXANDRA patel 2021-08-20 2021-08-20 Outpatient DOROTHY DAWSON, MDA MDA [id number] 14:40:16 14:50:18 ALEXANDRA Locke o amanda 2021-08-17 2021-08-17 Outpatient DARYL LAU MDA MDA [id number] 13:23:18 13:23:18 Chucky o amanda 2021-08-02 2021-08-02 Outpatient DARYL LAU MDA MDA [id number] 09:02:07 09:02:07 Chucky o n 2021-07-19 2021-07-19 Outpatient DARYL LAU MDA MDA [id number] MD 15:33:56 15:33:56 Chucky o n 2021-07-19 2021-07-19 ambulatory STLMLC STLMLC [id number] [facility]00 [facility] 2021-07-18 2021-07-18 Outpatient DARYL LAU MDA MDA [id number] 15:31:07 15:31:07 Chucky o amanda 2021-07-13 2021-07-13 Outpatient DOROTHY LORENZ MDA MDA [id number] 13:44:18 13:44:18 YUMI Locke o amanda 2021-07-08 2021-07-12 Inpatient UR WENDI, MDA Hosp Med [id number] MD 10:33:00 21:00:00 LACY Locke o amanda 2021-07-09 2021-07-09 Inpatient DOROTHY HOBBS- MDA MDA [id number] 14:37:39 15:13:17 Chucky ASKEW 2021-07-08 2021-07-08 Outpatient DARYL LAU MDA MDA [id number] 09:19:33 10:32:00 Chucky o amanda 2021-07-08 2021-07-08 Outpatient DARYL LAU MDA MDA [id number] 08:15:00 09:18:00 Chucky o amanda 2021-07-07 2021-07-07 Outpatient DARYL LAU MDA MDA [id number] 20:19:41 23:59:00 Chucky o amanda 2021-07-07 2021-07-07 Outpatient DARYL LAU MDA MDA [id number] 10:00:00 20:18:00 Chucky o amanda 2021-07-07 2021-07-07 Outpatient DARYL LAU MDA MDA [id number] 09:45:00 09:59:00 Chucky o n 2021-07-06 2021-07-06 Outpatient DARYL LAU MDA MDA [id number] MD 11:21:54 23:59:00 Chucky o amanda 2021-07-06 2021-07-06 Outpatient DARYL LAU MDA MDA [id number] MD 13:41:27 22:23:25 Chucky o amanda 2021-07-06 2021-07-06 Outpatient DOROTHY DAWSON MDA MDA [id number] MD 15:25:17 15:25:17 ALEXANDRA Locke o amanda 2021-07-06 2021-07-06 Outpatient DARYL LAU MDA MDA [id number] MD 13:22:42 14:24:35 Chucky o amanda 2021-07-06 2021-07-06 Outpatient DARYL LAU MDA MDA [id number] MD 09:27:40 11:20:00 Chucky o amanda 2021-07-06 2021-07-06 Outpatient DARYL LAU MDA MDA [id number] 08:45:00 09:26:00 Chucky o amanda 2021-07-05 2021-07-05 Outpatient DARYL LAU MDA MDA [id number] MD 09:07:24 23:59:00 Chucky o amanda 2021-07-04 2021-07-04 Outpatient DOROTHY LORENZ, MDA MDA [id number] MD 12:15:00 23:59:00 YUMI Locke o amanda 2021-07-04 2021-07-04 Outpatient DARYL LAU MDA MDA [id number] 09:23:55 12:14:00 Chucky o amanda 2021-07-04 2021-07-04 Outpatient DOROTHY LORENZ, MDA MDA [id number] MD 09:15:00 09:22:00 YUMI Locke o amanda 2021-07-01 2021-07-01 Outpatient DARYL LAU MDA MDA [id number] 09:26:55 23:59:00 Chucky o amanda 2021-07-01 2021-07-01 Outpatient DOROTHY DAWSON MDA MDA [id number] MD 09:26:30 23:59:00 ALEXNADRA Locke o amanda 2021-06-30 2021-06-30 Outpatient DARYL LAU MDA MDA [id number] MD 10:12:14 23:59:00 Chucky nic patel 2021-06-29 2021-06-29 Outpatient DARYL LAU MDA MDA [id number] 09:21:07 23:59:00 Chucky patel 2021-06-29 2021-06-29 Outpatient DARYL LAU MDA MDA [id number] MD 16:04:56 16:04:56 Chucky o amanda 2021-06-29 2021-06-29 Outpatient DOROTHY LORENZ MDA MDA [id number] MD 12:39:09 12:39:09 YUMI patel 2021-06-29 2021-06-29 Outpatient DARYL LAU MDA MDA [id number] 09:20:50 09:20:50 Chucky o amanda 2021-06-28 2021-06-28 Outpatient DARYL LAU MDA MDA [id number] 13:24:55 23:59:00 Chucky o amanda 2021-06-27 2021-06-27 Outpatient DARYL LAU MDA MDA [id number] 08:51:26 23:59:00 Chucky o amanda 2021-06-27 2021-06-27 Outpatient DOROTHY LORENZ MDA MDA [id number] 10:10:27 10:10:27 YUMI patel 2021-06-27 2021-06-27 Outpatient DOROTHY LORENZ MDA MDA [id number] 07:30:00 08:50:00 YUMI patel 2021-06-24 2021-06-24 Outpatient DARYL LAU MDA MDA [id number] 12:42:26 23:59:00 Chucky o amanda 2021-06-24 2021-06-24 Outpatient DARYL LAU MDA MDA [id number] 10:45:00 12:41:00 Chucky o amanda 2021-06-24 2021-06-24 Outpatient PADMINI [facility] [id number] [place] 00:00:00 00:00:00 PAT [facility] 2021-06-23 2021-06-23 Outpatient DARYL LAU MDA MDA [id number] 10:41:38 23:59:00 Chucky o amanda 2021-06-23 2021-06-23 Outpatient DARYL LAU MDA MDA [id number] 10:30:12 10:40:00 Chucky patel 2021-06-22 2021-06-22 Emergency ER JEREL, MDA Emergency [id number] MD 11:11:00 20:15:00 NICHOLE patel 2021-06-22 2021-06-22 Outpatient DARYL LAU MDA MDA [id number] 09:50:00 11:10:00 Chucky o amanda 2021-06-21 2021-06-21 Outpatient DARYL LAU MDA MDA [id number] 08:00:52 23:59:00 Chucky o amanda 2021-06-21 2021-06-21 Outpatient DOROTHY DAWSON, MDA MDA [id number] MD 07:58:46 07:59:00 ALEXANDRA patel 2021-06-20 2021-06-20 Outpatient DOROTHY LORENZ, MDA MDA [id number] 08:14:09 23:59:00 YUMI patel 2021-06-20 2021-06-20 Outpatient DOROTHY LORENZ, MDA MDA [id number] 07:58:43 08:13:00 YUMI patel 2021-06-17 2021-06-17 Outpatient DARYL LAU MDA MDA [id number] 11:45:00 23:59:00 Chucky patel 2021-06-16 2021-06-16 Outpatient DARYL LAU MDA MDA [id number] 11:42:10 23:59:00 Chucky o amanda 2021-06-16 2021-06-16 Outpatient DARYL LAU MDA MDA [id number] MD 16:11:01 16:11:01 Chucky o amanda 2021-06-15 2021-06-15 Outpatient DOROTHY POLK, MDA MDA [id number] MD 10:37:55 23:59:00 ENE Locke o amanda 2021-06-15 2021-06-15 Outpatient DARYL LAU MDA MDA [id number] MD 11:27:15 14:11:36 Chucky o amanda 2021-06-15 2021-06-15 Outpatient DARYL LAU MDA MDA [id number] MD 08:16:55 10:36:00 Chucky o amanda 2021-06-15 2021-06-15 Outpatient DARYL LAU MDA MDA [id number] 07:19:30 08:15:00 Chucky o amanda 2021-06-14 2021-06-14 Outpatient DARYL LAU MDA MDA [id number] 20:31:13 23:59:00 Chucky o n 2021-06-14 2021-06-14 Outpatient DARYL LAU MDA MDA [id number] 08:01:28 20:30:00 Chucky o amanda 2021-06-13 2021-06-13 Outpatient DOROTHY LORENZ MDA MDA [id number] 09:15:00 23:59:00 YUMI Locke o amanda 2021-06-13 2021-06-13 Outpatient DARYL LAU MDA MDA [id number] 08:20:58 09:14:00 Chucky o amanda 2021-06-13 2021-06-13 Outpatient DARYL LAU MDA MDA [id number] 08:08:42 08:19:00 Chucky o amanda 2021-06-13 2021-06-13 Outpatient DOROTHY LORENZ MDA MDA [id number] MD 06:30:00 08:07:00 YUMI Locke o amanda 2021-06-10 2021-06-10 Outpatient DARYL LAU MDA MDA [id number] 09:48:20 23:59:00 Chucky o amanda 2021-06-09 2021-06-09 Outpatient DARYL LAU MDA MDA [id number] 08:15:00 23:59:00 Chucky o amanda 2021-06-08 2021-06-08 Outpatient DARYL LAU MDA MDA [id number] MD 20:55:35 23:59:00 Chucky o n 2021-06-08 2021-06-08 Outpatient DARYL LAU MDA MDA [id number] MD 13:28:31 20:54:00 Chucky o amanda 2021-06-08 2021-06-08 Outpatient DARYL LAU MDA MDA [id number] MD 16:41:38 16:41:38 Chucky patel 2021-06-08 2021-06-08 Outpatient DOROTHY DAWSON, MDA MDA [id number] MD 10:37:41 13:27:00 ALEXANDRA patel 2021-06-08 2021-06-08 Outpatient DOROTHY LORENZ, MDA MDA [id number] MD 09:30:54 09:30:54 YUMI patel 2021-06-07 2021-06-07 Outpatient DARYL LAU MDA MDA [id number] 11:48:52 23:59:00 Chucky patel 2021-06-06 2021-06-06 Outpatient DARYL LAU MDA MDA [id number] 13:38:56 23:59:00 Chucky patel 2021-06-06 2021-06-06 Outpatient DOROTHY LORENZ, MDA MDA [id number] 07:00:00 13:37:00 YUMI patel 2021-06-06 2021-06-06 Outpatient DOROTHY LORENZ, MDA MDA [id number] 06:30:00 06:59:00 YUMI patel 2021-06-02 2021-06-02 Outpatient DARYL LAU MDA MDA [id number] 06:16:14 23:59:00 Chucky patel 2021-06-01 2021-06-01 Outpatient DOROTHY PRUITT MARIA DEL ROSARIO MDA MDA [id number] MD 10:37:44 23:59:00 Chucky patel 2021-06-01 2021-06-01 Outpatient DOROTHY RESTREPO, MDA MDA [id number] 13:15:31 14:00:28 CLINT patel 2021-06-01 2021-06-01 Outpatient DARYL LAU MDA MDA [id number] 06:18:07 10:36:00 Chucky o amanda 2021-05-31 2021-05-31 Outpatient DARYL LAU MDA MDA [id number] 14:02:11 23:59:00 Chucky o amanda 2021-05-31 2021-05-31 Outpatient DARYL LAU MDA MDA [id number] 09:00:07 20:53:44 Chucky patel 2021-05-31 2021-05-31 Outpatient DOROTHY CARDOSO, MDA MDA [id number] 15:31:35 15:31:35 [facility] Chucky patel 2021-05-31 2021-05-31 Outpatient DARYL LAU MDA MDA [id number] 05:46:59 14:01:00 Chucky patel 2021-05-30 2021-05-30 Outpatient DARYL LAU MDA MDA [id number] 06:55:13 23:59:00 Chucky patel 2021-05-30 2021-05-30 Outpatient DOROTHY LORENZ, MDA MDA [id number] 11:10:48 11:10:48 YUMI patel 2021-05-30 2021-05-30 Outpatient DOROTHY LORENZ, MDA MDA [id number] 06:15:00 06:54:00 YUMI patel 2021-05-25 2021-05-25 Outpatient DARYL LAU MDA MDA [id number] 08:51:12 23:59:00 Chucky patel 2021-05-25 2021-05-25 Outpatient DOROTHY LORENZ, MDA MDA [id number] 10:29:47 11:57:52 YUMI patel 2021-05-25 2021-05-25 Outpatient DARYL LAU MDA MDA [id number] 08:22:09 08:50:00 Chucky patel 2021-05-24 2021-05-24 Outpatient DARYL LAU MDA MDA [id number] 14:48:05 23:59:00 Chucky patel 2021-05-23 2021-05-23 Outpatient DARYL LAU MDA MDA [id number] 15:22:13 23:59:00 Chucky patel 2021-05-23 2021-05-23 Outpatient DOROTHY LORENZ, MDA MDA [id number] 08:29:28 15:21:00 YUMI patel 2021-05-23 2021-05-23 Outpatient DOROTHY LORENZ, MDA MDA [id number] 08:49:56 14:05:15 YUMI patel 2021-05-23 2021-05-23 Outpatient DARYL LAU MDA MDA [id number] 06:28:35 08:28:00 Chucky o amanda 2021-05-22 2021-05-22 Outpatient DARYL LAU MDA MDA [id number] 14:50:33 23:59:00 Chucky o amanda 2021-05-19 2021-05-19 Outpatient DARYL LAU MDA MDA [id number] 11:03:15 13:40:55 Chucky o amanda 2021-05-18 2021-05-18 Outpatient DOROTHY DAWSON, MDA MDA [id number] 09:16:35 23:59:00 ALEXANDRA Locke o amanda 2021-05-18 2021-05-18 Outpatient DARYL LAU MDA MDA [id number] 15:19:23 15:19:23 Chucky o amanda 2021-05-16 2021-05-16 Outpatient DARYL LAU MDA MDA [id number] 08:30:00 23:59:00 Chucky o amanda 2021-05-11 2021-05-11 Outpatient DARYL LAU MDA MDA [id number] 12:11:49 23:59:00 Chucky o amanda 2021-05-11 2021-05-11 Outpatient DOROTHY LORENZ MDA MDA [id number] 13:49:12 16:28:29 YUMI Locke o amanda 2021-05-11 2021-05-11 Outpatient DOROTHY DAWSON MDA MDA [id number] 08:59:55 15:39:22 ALEXANDRA patel 2021-05-11 2021-05-11 Outpatient DOROTHY DAWSON, MDA MDA [id number] 10:00:00 12:10:00 ALEXANDRA patel 2021-05-11 2021-05-11 Outpatient DOROTHY DAWSON MDA MDA [id number] 09:15:00 09:59:00 ALEXANDRA patel 2021-05-09 2021-05-09 Outpatient DOROTHY SALINAS, MDA MDA [id number] 11:38:34 11:38:34 LEONID Locke o amanda 2021-05-09 2021-05-09 Outpatient DARYL LAU MDA MDA [id number] 11:38:24 11:38:24 Chucky patel 2021-05-06 2021-05-06 Outpatient EL MED, MDA MDA [id number] MD 10:53:13 23:59:00 ARIANE patel 2021-05-06 2021-05-06 Outpatient EL MED, MDA MDA [id number] MD 10:44:38 10:52:00 ARIANE patel 2021-05-06 2021-05-06 Outpatient DOROTHY DAWSON, MDA MDA [id number] MD 08:30:00 10:43:00 ALEXANDRA patel 2021-05-06 2021-05-06 Outpatient EL JAM, MDA MDA [id number] MD 07:45:03 08:29:00 ENE patel 2021-05-04 2021-05-04 Outpatient EL DARYL ARIZA MDA MDA [id number] MD 10:40:00 23:59:00 Chucky patel 2021-05-04 2021-05-04 Outpatient DOROTHY DAWSON, MDA MDA [id number] MD 10:16:12 12:58:49 ALEXANDRA patel 2021-05-04 2021-05-04 Outpatient EL GERDA, MDA MDA [id number] MD 09:45:00 10:39:00 YUMI patel 2021-05-03 2021-05-03 Outpatient DOROTHY DAWSON, MDA MDA [id number] MD 08:06:41 23:59:00 ALEXANDRA patel 2021-05-03 2021-05-03 Outpatient DOROTHY DAWSON, MDA MDA [id number] 06:25:36 06:25:36 ALEXANDRA patel 2021-05-02 2021-05-02 Outpatient EL MDA MDA [id number] MD 13:03:47 13:06:58 Chucky o amanda 2021-04-22 2021-04-22 Outpatient EL MDA MDA [id number] MD 11:48:16 11:48:16 Chucky o amanda 2021-04-22 2021-04-22 Outpatient EL MDA MDA [id number] MD 11:48:13 11:48:13 Chucky o amanda 2021-04-22 2021-04-22 Outpatient EL MDA MDA [id number] MD 11:48:12 11:48:12 Chucky o n 2021-04-22 2021-04-22 Outpatient EL MDA MDA [id number] MD 11:48:10 11:48:10 Chucky o n 2021-04-22 2021-04-22 Outpatient EL MDA MDA [id number] MD 11:48:08 11:48:08 Chucky o n 2021-04-22 2021-04-22 Outpatient EL MDA MDA [id number] MD 11:48:06 11:48:06 Chucky o n 2021-03-18 2021-03-18 Outpatient [facility] [id number] [facility] 2021-02-15 2021-02-15 [facility] [id number] [facility] 2021-01-11 2021-01-11 [facility] [id number] [facility] 2020-10-26 2020-10-26 Outpatient [facility] [id number] [address] [place] [address] 00:00:00 00:00:00 PAT Guzman [facility] 2020-04-07 2020-04-07 [facility] [id number] [facility] 2020-03-15 2020-03-15 [facility] [id number] [facility] 2020-02-11 2020-02-11 [facility] [id number] 09:19:00 09:19:00 t Specialty/U Myah kes - Specialty rology [facility] a /Urology Clinic l Clinic Outpati ent Clinics 2019-12-23 2019-12-23 [facility] [id number] 13:20:00 13:20:00 t [employer] [facility] l Medicine Outpati ent Clinics 2019-12-12 2019-12-12 [facility] [id number] 11:00:00 11:00:00 t Thatcher Thatcher [employer] Luke s - Drive [facility] 2019-12-04 2019-12-04 [facility] [id number] 08:44:00 08:44:00 t Thatcher Thatcher [employer] s - Drive [facility] 2019-11-21 2019-11-21 [facility] [id number] 16:47:00 16:47:00 t Specialty/U Myah kes - Specialty rology Mem[facility] a /Urology Clinic l Clinic Outpati ent Clinics 2019-11-14 2019-11-14 [facility] [id number] 08:00:00 08:00:00 t Thatcher Thatcher Dakim s - Drive [facility] 2019-11-13 2019-11-13 Outpatient Chayo Domingot [id number] 14:40:00 14:40:00 t Thatcher [employer] s - Drive [facility] 2019-10-24 2019-10-24 Outpatient [facility] [id number] [place] 00:00:00 00:00:00 PAT [address] 2019-10-22 2019-10-22 Outpatient Chayo Domingot [id number] 14:12:00 14:12:00 t Specialty/U Myah kes - Specialty rology Memori a /Urology Clinic l [facility] 2019-10-14 2019-10-14 Outpatient [facility] [id number] [place] 00:00:00 00:00:00 PAT [address] Results Test Description Test Time Test Comments Results Result Comments Source Glomerular Filtration Rate 2021-09-20 18:28:20 Test Item Value Reference Range Interpretation Comme nts eGFR-AA (test code = 89 See_Comment Normal eGFR: >= 60 52201-8) mL/min/1.73 m2N ote: The eGFR is calculated [...] 15 [Automated mess age] The system which ge nerated this result transmit mary reference range: >=60 mL/ min/1.73 sq. m. The referenc e range was not used to int erpret this result as shavon l/abnormal. eGFR-JOSELITO (test code 77 See_Comment Normal e GFR: >= 60 = 54397-7) mL/min/1.73 m2N ote: The eGFR is calculated [...] 15 [Automated mess age] The system which Scoreoid nerated this result transmit mary reference range: >=60 mL/ min/1.73 sq. m. The referenc e range was not used to int erpret this result as shavon l/abnormal. PEDRO LUIS (test code = Pls schedule PEDRO LUIS) videostralisha prior to apptoby Dorantes.Serum [id number] 18:28:19 Test Item Value Reference Range Interpretation Comments Creatinine (test code 0.98 mg/dL 0.67-1.17 = 2160-0) PEDRO LUIS (test code = PEDRO LUIS) Pls schedule videostrobe prior to [facility] MD [id number] 18:28:18 Test Item Value Reference Range Interpretation Comments BUN (test code = 3094-0) 35 mg/dL 6-23 H PEDRO LUIS (test code = PEDRO LUIS) Pls schedule videostrobe prior to [facility] Lab Interpretation (test Abnormal code = 56316-0) MD [id number] 18:28:17 Test Item Value Reference Range Interpretation Comments TSH (test code 3.11 See_Comment [Automated m essage] = 65621-3) The system whic h generated this result transmit mary reference range : 0.27 - 4.20 mcunit/mL. The reference range was not used to interpret this result as normal/abnormal . PEDRO LUIS (test code Pls schedule = PEDRO LUIS) videostrobe prior to [facility] MD DorantesFree [id number] 18:28:16 Test Item Value Reference Range Interpretation Comments T4 Free (test code 1.40 ng/dL 0.93-1.70 = 3024-7) PEDRO LUIS (test code = Pls schedule videostrobe PEDRO LUIS) [facility] [id number] 21:40:26 Test Item Value Reference Range Interpretation Comments Submitted Clinical History [id number] (test code = 85196) mbGFuZzEwMzNcZnRuYm pcdWMxIHtccnRmMVxzc 4ZzD6VdVcUzRRdjcyUo XGRlZmxhbmcxMDMzXGZ 0bmJqXHVjMVxkZWZmMH rtSn3lkSUozGvkZdRkN LZxh1jntkTRwocwuIr3 m3gnXAUlPtV5zHWdILp vK4gbfoPgvKJdQTYfQE d0mV05FMXixZ9qhKNfQ JjhfcJyIyW2XMpmXZCn FcR9BRLzrHBoREZdV1a yZWQwXGdyZWVuMFxibH AwSHL9qZgjv7N6eZJkn GVldHtcZjBcZnMyMiBO q2SpABv2gMmoP7NeFVP zBzI2kHNjDNAiERoiUO SrXXAbktU3iO50HCqce lL3aBFnk2Log81sz046 bK1kvZQqKHI5LNHuXHP iuJAqPXFhLDI3SIYwrR WeQ7tjEUAeHF6bylqoV NbzUUtaIOQkgHN8GEKg bOAjE5GxCDZvLEcpAPK ipxw7RnBhKz5naQJvxB zpJVkhc4egt0edzLVeF yb6UFBbZkMvYsgnITmu m5Bzb2yyQEKcjr3lXYT 6eFSlgArmm3D0dDYfIG OcsHVqwrXzGTHeRsV6H UsiEX6xem48HSDaLXC7 qw9gfHNbcCheasJehDJ fTRgrX8CsTEDqp952BI SrZ2CcBUAye0N1zrLfE qDxFTZshZI9yxS7POAq NPk4lLEzhzV0tjZyvTB aO9wcfR5qFNAhTI1ski uid8zsYPwqMVeoXWAgh WA9mgR3TLBxgRMdC3Rz oQ3zGFUoNFjeXULrkkn 8XrIwCs3btREujDasYN xzYmtwYWdlXHBnbmNvb nRccGduZGVjXHBsYWlu XHBsYWluXGYwXGZzMjR esFiseWsfmZ1mIgXxIk GqMSvrHB1mALVsW4grh PJcQBNzHKBlG0vpGrQm dO8gtCraPLxnnjRaVNm pw52pCBJudNMnIS7muO GalaHksBUwQN7vqOAil Bnvhufye4Qcw2JwW6of cRVvONbNYFGsLB5prWg wcO4iGiWzIcQrFmllGB 6fUHGkO2ztcUGoICLiS FLtR4pxZnQguD6swCrc TVnzoeGqIPMgel55 Diagnosis (test code = 34) z0lrtWZxVGHnuPY3JvE bQGWdu6wxl9ZvbOWrtW UkZUfpoOWtnhEjcb93c NE3eB24HI1sWCMmYwF5 OHUkueE5Obp2DGRvLGJ bfPUlS157d5xqp4evyo BjzGE1NNTqMAHpD3YrH O4nHKLnaZXeP95kiJMt SVF8QCKvIUHolZCeKRV tIQW1OKJkhUYqT3tgRC TpTP1pqdgsZHqkPDnlL GLbdLP9DRVrzRZrV1Qq PNLjSLweASUyuvt9TuE pWi0lpTMunNsnHXuqXZ JkXHBsYWluXGZzMjBcY 4YdEAL9JKR8j8GiinFu BCTagM4dh4u7EYWijlh ndKqcLGoelE73MqAyC1 EpCQH8p2FwoyKlFN91G 51fTSV3xTXlTL8kWGUf LNmnb8H4eCWzGPFgc7X tYWxpdHkuXHBhclxsaT DrzSghLRmePMTyV7SsL GM9XOJ8f88xV0tmIHpu q3SpwZWmPM45ptGsHXE pjB8bk2r7YSRgmddzqL neYRxxxH66DgQrV4KnZ EFudHJhbCBhbmQgdHJh waXiyFalfxVnNX59X85 uVTC9fTShOIEvTKC4vY CfBHxbk3Mlk1NapIw2R hjdHOErGb8mEGohBNAl aWNvYmFjdGVyIFxpMCB vcmdhbmlzbXNcaSAgXG ioEHvPBrGyw7AdnN0bI M6zNPmxnSLlnRxoZUkc fFT2DAJjCYHvPZCxEQA udGlmaWVkLlxwYXJcbG kwXGxpbjBccGFyXGNmM JTDBkIGlQ9kFHQfNNSn UIA8eqacNDYzDLzbvv0 fnFmwwnf1zYswWslpqS J9LwdhHWEoqOq9ZhHep LipOuNnLELsYHDKuH8e xGLwY8fnlsQmfD2kdED uXHBhclxsaTBcbGluMF wtJHZkP0CxKRD5XTZku U8lOIVcFEHjmEseYXHa GEs2qkKwSQkmq1QstWi smaL1ZE4hWGNur9IkhJ YxgE1hhVHiUZZhb2Bsr TpccGFyXGxpNzIwXGxp bjcyMFxjZjAgVHVidWx cpjMsFPVdq67dBchtBA JccGFyZFxwYXJ9 Gross Description (test o6dpoGGrQFDpvDNMUHz code = [id number]) wMVxhbnNpXHNwbHRwZ3 YopkbqEWsmUP3yGT7xc RyvcDOpiQByKT8JHWRz ZmYxXHBhcGVydzEyMjQ jNFCwpCNuuUB0CWIqAM 1hcmdsMTgwMFxtYXJnc oX5WRYgjIQeV6TcRPTa KB5zawtuFHC4VOqysL2 lopLQXgmqPg6ooQEfsF tcZjFcZmNoYXJzZXQwX KGhhNddKMYkZXt7sV2O LmyyY01nw5B0Kfm4YLI aUSWmT3TgYY3sLQEznE CuT71KDrkfWIZ8FXOMC heeOPKuCG8Zs7zcQFTe lOUfWDL2YUcmxQOjAVB mFLFfXYo1GTBnRXarxH TmAP1yhXpuSmegsDpdy 2VjdCBcXGlkIDUxMDAy QXgiGLJlFF2DXuKqEHF vEEAjRRgdRSs4LLh0WP 1YGkAdYPKqIYV1HGS8N IZqDLp4RQqgFO0BRKDk IYI5HCytHTFvTOJgUpH pCDn9VPPvGWimIYQgzD FsIFxcZnMgMTAgXFxmY rNfXPDeMOvnhzD0LYUo YWluXGJcZnMyMCBBOlx oGEAmUOmgfMzbvW3pAY AeX97dm7VYe8KvLN1VO Nn6azMubxjlkZ0kALKn rhQpELbsfPWeW9xmSmw nQhRwPiIoOTUTuA4cPG 70wLzkTNIhUBGqbB83C BJsMNHsPVJjHzVjc4F3 RRRoyqK2dMCkeVLmCrO fG51pisNwLAPwNaJyH5 8hGMVcBeR3RBRrPMXyr nRpcmVseSBzdWJtaXR0 RNVtvL8mUWCfJPJxgPL fbUJjzExrKzclfTF8MF hkMxoocY7ejKVRCPTKJ wwOYmwvhmQoXF5QEM0Z RzSXVL57AlYeYKU2LQj ZM2ZGmWM6Bqx6UIg2nH tcZmxkcnNsdCBcJzFDf K7NGQpfVjqqkCT9XYny PrcakW4spMLKKYNMRep CXvvsjgDcUM6YQR9PRY 7DcNUdVVV9pCA9CNJRR zugfEE0pVD1cC26ATYv DUHraZQgQScyL373JFK fVQhpRHy7anGoUVHzOp WvMInnMCOmW85oq5FEd 9EqTDRpn0otfFggm2Dx dGVuZFxwYXJccGFyZFx osT6oAlQdd2zcrEi8TK rglgV0WBTnlw7hvIjux A8vNNi9CJpgAZGgU0Cj C8AfTCkqXBL0BQMaDzN cXGRiICBPVlIgIiBDMz qlDAO0LdB2NBo2ULWOK pMiMiCcUQFgQVY3LkZr NNl1EIp1WBxTVnXrYGE xBNC3Jef1WXP7PkF5BA xcdCAyIFxcZiBBcmlhb CBcXGZzIDEwIFxcZmIg RTucxJNsZS9qvSucyFO pblxiXGZzMjAgQjpccG EgZK5UFPZuACaiBGXkj FNKXHT6EB0aNTBLQmgf dHJwYXJcbGluMFxyaW4 vWL3MPFm4cfXgFAAmY5 HwUTBuBbLiV2SteTCzz HzjX9OyvBJwZtUjuwAc iD79ABTvCQNpDUVdCEZ ztFoltAFav27arLY3HI 1fpYhea8MgTXPcAZtiS V65huwoBF47HVdbKL31 TYruHJ0jGGVbJIjpWBZ hW5TmG2A9GPawHC80tN CacEfih4ExnJh0gWGcU SglGWUhSmRfQATss4Ec A4C4VNWbRVkxl1nrTXR xPYyuu6WeDBkGSHBQJK 7VJY1ifAP5UDaIM6TLI 7rHzWEjBRX9sNM8CSDH LshsaFL6mYF0fC06VQQ jWIMykCXzPRsmM175GP Q4DLCzCFpko1pqVVHlU Dgpu6LfRNwRWMMDDA2F HE2okWJ4GIiPH3JHQUy dHIDkNhqlxKOTSBB5OM csxKeczJm6h7otnNMri 1l0NGwhGDE5dEnecUTb blxsdHJjaFxmczIwIA0 BJIRvpMZUXHQ1NZ3wXS x9GJbgWUOnQ4AuJ4Pyp cJliIUpTSBlpxDrj3pg JGF4NHTejXVxtJZsCaZ wJoozKAF3TKJgGPyrQM 0Ra5aeXEMekNPgTUW3T FxcaWQgNTEwMDIgXFxk ElWbT5HNTXQjFaC1LOU wQNLyGIs7HYmsK6LBIX KvZZN3OWRsXJIkQyX6K Tw7ZSSQMk0dPAJkVJhe SKT1VeX4RUPlFUWrJKD gMiBcXGYgQXJpYWwgXF xmcyAxMCBcXGZiIFxcZ mnfZEymK44niZthwC8k BmyjnfNlQUO2LOWcavQ NClxwbGFpblxlcGljTm VzdERvYzEgDQpcbHRyc GFyXGxpbjBccmluMCAN ClxsdHJjaFxiXGNmMVx lvtBvRDU9o71yE4wzTO qay7XrnFFqJx5gaGRuk 9Y2jZSgyTR0FkotUXuo ZbPwRJ11wNZeiCudKSB uPdBylIHiECTpj1A9ZE BmcmFnbWVudHMsIDAuN lS4DBGzGMZ7TFDxCyNc lLZcgcJxE1ucMVuymXR xBEVlePyoDHb5RJW4Nn 6doYNtYGUiyyWLRQ5bZ Cvuaa99TAG1h2mriWIk CBnlYglhvDWxesT8TAa ASGBPAYlNGcLnFI1jCV xJTktCRUdJTnwyMTAxN veijQGAUGZ6QIwlzLzt bVa1b9vipQBmi0g8XAq bDXW7hVKAh9snsJSeEC flLogafTEoawD2QMzYB LPQFBxVIvFxWJ0nMNfB PxsXQpL6FxCkBJE7NEa TD8LYkBE6Adv4QGd6uD tcZmxkcnNsdCBcJzFDf P7jtSnfrN2skIYsW9uf ZnMyMCANClxlcGljTmV gwQLjGmKjabV8BPYvkK CkNQN0VN4hOBLemkrjE UAeHSEcFNW5MUoymU04 bHQwXGZzMTZccGFyfVx wbGFpbiANCntcKlxlcG qjc2WavUYgKDasFHAxZ QJfFGelRGDuRU8NLyGd NCAdZZBhTOzuINc7CYy 8OJ4JZoZjZQRpBDD9SZ C9XuBgXCd5LAsdFK1YF BWpLTF9CfGoIUBwYRVl FkLxNZd2SHFsJIcbJWU yaWFsIFxcZnMgMTAgXF ylZeXxHAIsHXltwqM0I HBsYWluXGJcZnMyMCBE OlxwYXIgDQpccGxhaW5 zETKxI13vl2TZq9GlIZ 4DQXt1tbTopqjwrF1eO BHqieAhAPdtiRLmZ0gv UwgoAnHuPlNyLXOUw6d vbiwgaGVwYXRpYyBmbG W1zVWhIUzbp8WtsOddz dJ6MX1lMCXwk7JndFMr gC4enZR9YUZlKZKrPHM bHHHnn9E2SNLnvjD8tJ ZipLUwGyUkU57xcjLvJ LIkXFXcrNfyZU82iDTh pBvwq3OvzGw3lZDkPHw mDOQpCuOtKADhf2KaP5 I4ZCAbRWnmm9dqMADrH Tixj5VjPNdGHNNKYN7C FL9epRE1CJfTF6RFF0g AoSUeZKL1eBB4QPPFXc jllGA6xYQ8gY07OFVpQ KPoyDMtBXvvH305GRU6 FTNvDIhaz3uyKFDjAGx zh8AqKLnQZZPFDJ5LSE 2qxCI4FHcYA2LPIFdmR OWvSzdlsAAWLWC8PWij oGmqdSn5m3nrhEAab0o 6FIvuWWW9aKfyzUHtox znnQDvmBwtmhUhLO7EW JRurBEITYW3VC2zKCm5 VFspSDYdM6EmJ6RusvJ hzYVhEELaofLtc5ilAQ I3UEAzoJXokCDxTnCfK meaUXS2KZBmXGieCU9V EKLxAFQ9WKaaeX74hVN eJE4EAMOeMZusYDZrMT HbtqF9KRFnqIQgFFV5Q A0ntHtogEPypebbfxX8 IA0KfQ== Disclaimer (test code = c3lldQOzUCXktHBwAbQ 9844) lOMDsSFRpc1syCYFahX FuZzEwMzNcZnRuYmpcd KSsDKSmXzCsm9van571 aNWyr3skZKYhSxY0pCH tMIGerCYgX492TDAeTY ues5fqp9CzEHRpdVYjl 9R9LJGRnerosNc1xGui H67yp7G9VapnG4auKDZ iXJAqS4WwWN4tNSOfRy s8YDC5WWR5LUVfIOUdG 0RpBX6sQFHflUKbEEv4 h7soaWshYALpFWT5h8z wLRdhesZtDQ9zbz0nvP a4y5ihmsOmNROlOBSyq OTKDMBdW3KqaMrsBb7r rTx7gGooIsihKLF2Hfm 9AP2sgd55llk2yZnsCX HranemUxL6CDaqRQChu yzsIIg4VEkkJFRiyOW0 FMVsaCZqC8JdFIVmGO2 memr2KPY6KIhpBUVsTg V0RXYiaHJnIPLmhQdgV Surc650JXZ1AxQkVK6q L1Fce1Y8zE0mwGKrATZ dsZIfMzCzIJIehk1rdP DgIFpqk4UrOCO6giT2y IEjjLEpFSTkCX04Wbwt f2GmTtifNRJ4HNKhkrO ow2Rjl8tyDgZlczErB6 liD9TkFMFwNUNxQKLeB iEnexVng2Hpi5DrtJYw eKk2a1gkIKCmRCQncNh tw9haVCH9CXKvK4F9fC Qtm0aqSPvqKNWrqIO4y zB6EXEqtVTzS2ImnX6q QVWxBK1bnsg1e7foCYA 4ULphLNMeIhF9gaA6LA BcaGVhZGVyeTcyMFxmb 055NGJ1LcYnNOGbo6Zp P2ByeIcyO57fiNvoX95 uNQPycNdvhK6aqLxcrE 5cZjBcZnMyNFxxbFxwb DCnvrquLJlatxI0UFgi fsrbMEWgPUsfT5reWzT dCNDgdIbaSXpvm7AnUU DoREXoBioilrC6WXZWb 67yQWYqf0IdUIOjwY4s oTOaCUuvpfAirHP4ZOf hdmUgYmVlbiBkZXZlbG 4uTUQjAA2aFLVdpoWjj t7oswOvHTHuDBAhH6Tq cmlzdGljcyBkZXRlcm1 ixpJnJSA6QTGOFO0QAW PwPUHnt40sLOSykDaor A5koHJqpcUsGTFhd3Oi eT6wyDJXRZCqM8sfKZ8 bVPjyb1KvaWVdqSKsvQ W0TDHvk5VaWaZodbNpc MQheRTgQ4XnsVpfQ7qv WZVhCXDnugWitTQot5P vBFRxyPX1gSYrZU4CHq MTi27kDLYyXIBCroXgX VHwxMyfdZF9yhL6oP4l LiBJZiBhcHBsaWNhYmx cGHTzc193cw7wehO5FM ErFBKmowzdk8VmTCFvA NHyrN56TNKbJUYgdv4y drfjxODudrUqQ4Kwfss 7fM4dNGFcHLwhGPAiCV ZzMjJcbGFuZzEwMzNca GljaFxmMVxkYmNoXGYx QXxkU8usZsQmUkZlRev wYXJ9 [facility] Glucose Zwulsd8675-32-68 15:26:33 Test Item Value Reference Interpretation Comments Range POC Glucose (test 131 mg/dL 70-99 H Capillary blood code = 12049-5) samples, e.g . obtained by fingerstick, ma [...] Capillary code = 9554) Performing Lab (test [facility] code = 75707) [facility] MD [facility], [address], [facility] [place] [address]; Pump Installation And Servicer: Paty Chavez MD Lab Interpretation Abnormal (test code = 31413-3) MD DorantesPhosphorus Leopp9315-52-29 10:30:36 Test Item Value Reference Range Interpretation Comments Phosphorus (test code = 2777-1) 3.0 mg/dL 2.5-4.5 MD DorantesCalcium Rvgvh0457-46-65 10:30:35 Test Item Value Reference Range Interpretation Comments Calcium Lvl (test code = 52822-2) 8.4 mg/dL 8.4-10.2 MD DorantesElectrolyte Xgxio4872-52-52 10:30:34 Test Item Value Reference Range Interpretation Comments Sodium Lvl (test code = 138 See_Comment [Au tomated message] 530-2) The system [employer] generated this result transmitted ref erence range: 136 - 14 5 mEq/L. The refe rence range was not u sed to interpret this result as normal/abnor mal. Potassium Lvl (test code 3.4 See_Comment L [A utomated message] = 9069-3) The system [employer] generated this result transmitted ref erence range: 3.5 - 5. 1 mEq/L. The refe rence range was not u sed to interpret this result as normal/abnor mal. Chloride (test code = 101 See_Comment [Auto mated message] ) The system [employer] generated this result transmitted ref erence range: 98 - 107 mEq/L. The refe rence range was not u sed to interpret this result as normal/abnor mal. CO2 (test code = 2028-02) 26 See_Comment [A utomated message] The system [employer] generated this result transmitted ref erence range: 22 - 29 mEq/L. The reference r jackie was not used to interpret this result as normal/abnor mal. Anion Gap (test code = 11 See_Comment [Aut omated message] 32242-7) The system [employer] generated this result transmitted ref erence range: 4 - 14 m Eq/L. The reference r jackie was not used to interpret this result as normal/abnor mal. Lab Interpretation (test Abnormal code = 37015-9) MD DorantesGlucose Moakd8379-11-86 10:30:33 Test Item Value Reference Range Interpretation [...] diabetes Lab Interpretation (test Abnormal code = 90853-8) MD DorantesMagnesium Bhdkb0419-19-91 10:30:30 Test Item Value Reference Range Interpretation Comments Magnesium (test code = 68166-9) 1.8 mg/dL 1.6-2.6 MD DorantesUqafmvwpHrdjpicpovzp5588-11-40 10:00:41 Test Item Value Reference Range Interpretation Comments Neutrophil % (test code = 71.7 % 42.0-66.0 H 770-8) Lymphocyte % (test code = 14.8 % 24.0-44.0 L 736-9) Monocyte % (test code = 6.6 % 2.0-7.0 5905-5) Eosinophil % (test code = 5.7 % 1.0-4.0 H 713-8) Basophil % (test code = 0.7 % 0.0-1.0 90458-1) IGRE % (test code = 0.5 % 0.0-0.4 H IGRE % c ount 23118-5) includes Metamyelocytes, Myelocytes, and Promyelocytes. Neutrophil Abs (test code 3.16 K/uL 1.70-7.30 = 751-8) Lymphocyte Abs (test code 0.65 K/uL 1.00-4.80 L = 731-0) Monocyte Abs (test code = 0.29 K/uL 0.08-0.70 742-7) Eosinophil Abs (test code 0.25 K/uL 0.04-0.40 = 711-2) Basophil Abs (test code = 0.03 K/uL 0.00-0.10 704-7) IG Abs (test code = 0.02 K/uL 0.00-0.04 35084-5) Lab Interpretation (test Abnormal code = 82788-0) MD Dorantes.IFO1683-05-33 10:00:36 Test Item Value Reference Range Interpretation Comments WBC (test code = 4.4 K/uL 4.0-11.0 6690-2) RBC (test code = 789-8) 3.03 See_Comment L [Au tomated message] The system [employer] generated this result transmitted ref erence range: 4.50 - 6 .00 M/uL. The refer ence range was not u sed to interpret this result as normal/abnor mal. Hgb (test code = 718-7) 8.3 See_Comment L [Au tomated message] The system [employer] generated this result transmitted ref erence range: [...] See_Comment [Automate d message] 786-4) The system [employer] generated this result transmitted ref erence range: 31.0 - 3 6.0 gm/dL. The refe rence range was not u sed to interpret this result as normal/abnor mal. RDW-SD (test code = 46.0 fL 35.1-46.3 66323-1) RDW-CV (test code = 14.1 % 12.0-15.5 788-0) Platelet count (test 236 K/uL 140-440 code = 777-3) MPV (test code = 10.0 fL 4.0-10.4 64679-7) INRBC (test code = 0.0 % See_Comment The INRBC (instrument 76149-3) NRBC) value ref lects the enumeration of nucleated red b lood cells contained in a 200uL sampleof whole blood analyzed by the instrument. Thi s value maydiffer from the NRBC value repo rted in a manual differential,wh ich is based on a 100 cell differential. [Automated mess age] The system [employer] generated this result transmitted ref erence range: <=0.0. T he reference range was not used to int erpret this result as normal/abnormal . Lab Interpretation Abnormal (test code = 54419-7) MD DorantesProthrombin Time with KHW9191-53-77 11:12:21 Test Item Value Reference Range Interpretation Comments PT (test code = 5902-2) 14.9 See_Comment H [Au tomated message] The system [employer] generated this result transmitted ref erence range: 11.5 - 1 3.9 second(s). The reference range was not used to int erpret this result as normal/abnormal . INR (test code = 6301-6) 1.26 0.90-1.10 H Lab Interpretation (test Abnormal code = 13758-3) MD DorantesTMP Interpretation Antibody Screen Beaxtyhj7385-96-71 13:43:46 Test Item Value Reference Range Interpretation Comments TMP Auto Neg At the present ABSC Interp time, patient (test code = plasma shows no ____NICHOLE GAN 7535) evidence of RBC SERA HUMPHREY MD alloantibodies. - 47213Frzgn mary by: NICHOLE NAPOLES MD - [id number] Date/Time: 08.03 8:43 AM CDT Transcribed Rohan e/Time: 08.26.2021 8:43 AM CDTElectronical ly Signed By: MD Carri PEÑA [id number] on 8:43 AM Julián Livingston Interpretation Hrrelqahtq7586-94-09 13:43:45 Test Item Value Reference Range Interpretation Comments TMP XM Interp RBC units (test code = crossmatched for 7566) transfusion appear ADR DWAYNE GAN acceptable. MD Carri JIMENEZ [id number] by: MD Carri ESTRADA [id number] Date/Time: 08.03 8:43 AM CDT Transcribed Rohan e/Time: 08.26.2021 8:43 AM CDTElectronical ly Signed By: MD Carri BILLINGSLEY 143 02 on 08.26.2021 8:43 AM Julián Tobar RBC:accc, 2 Wahcp7246-78-67 09:09:32 Test Item Value Reference Range Interpretation Comments PRBC Product Ready 2 Red Blood Cells (test code = Available - 52945-5) Order Form 03 when ready for product issue. Unit Number (test [id number] code = 7002) Product Code (test R8660E69 code = 7003) Unit Expiration [id number] (test code = 072677) Unit Blood Type 9500 (test code = 7004) Product Code Text RBCIRLR CPD AS1 (test code = 500mL ) Crossmatch [id number] Expiration Date (test code = ) Unit Irradiated IRRADIATED (test code = 726754) Dispense Status ISSUED (test code = 7001) Unit Blood Type O Negative (test code = 7005) Product Brick Maker .BPAM ____ Location (test ___ code = 732601) ___ ____ MD DorantesRBC Product Ready for Pick Aa7703-08-63 03:22:01 Test Item Value Reference Range Interpretation Comments PRBC Product Ready B2 Blood Bank Product is ready for for Brick Maker (test pickling operator on August 25, code = 510995) 2021 22:21:56 CDT. MD DorantesAntibody Hceajv1126-70-54 03:13:05 Test Item Value Reference Range Interpretation Comments ABSC. (test code = 890-4) Negative ABSC MD DorantesRnwtvzxlXVEJp7296-42-91 03:13:04 Test Item Value Reference Range Interpretation Comments ABORh. (test code = 882-1) O NEG MD DorantesClot Expiration Vlhv1763-81-81 03:13:03 Test Item Value Reference Range Interpretation Comments T & S Expiration (test code = 08/28/2021 5318) MD DorantesConfirm DODTg9458-03-40 01:27:34 Test Item Value Reference Range Interpretation Comments ABORh Confirm. (test code = 882-1) O NEG MD DorantesCOVID-19 (SARS-CoV-2)Cahnpvspqbzy-WT2243-50-25 00:26:20 Test Item Value Reference Range Interpretation Comments COVID19 Not Detected Not Detected (SARS-CoV-2) (test code = 42492-6) COVID19 SARS Inpatient Indication (test Admission code = 17017) Covid 19 Comment See Note The rufino S ARS-CoV-2 (test code = [place] [address]) use on the dharmesh s Alyson System [...] COVID-19. A fa ct sheet for rhonda maxwell provided by the top former ([employer]) can be rev iewed at: https://www.fda .gov/m edia/667933/denys nload. A fact sheet fo Health Care pro viders is provided by the top former ([employer]) and can be reviewed at: https://www.fda .gov/m edia/742235/denys nload Results must be interpreted wit hin [...] is assay has been authorized by [place] [facility] for use only un isabel Emergency Use Authorization ( EUA) in laboratories that have been CLIA-certified to perform moderate-comple xity and high-comple xity tests. The Microbiology Laboratory at [facility], CLIA Accreditation #[id number] and CAP Accreditation #[id number], verif ied the performance characteristics of this assay. Int ernal controls are us ed to monitor all sta ges of the test proces s. MD DorantesIyssldrwnMXS1500-40-08 23:59:55 Test Item Value Reference Range Interpretation Comments aPTT (test code = 32.7 See_Comment [Automate d message] The 41681-6) system which ge nerated this result transmit mary reference range : 24.7 - 36.8 second(s). The reference range was not used to interpr et this result as shavon l/abnormal. MD DorantesFractionated Yplxbzaiv9059-69-36 23:57:02 Test Item Value Reference Range Interpretation Comments Bili Total (test 0.4 mg/dL See_Comment Indocyanine Green (ICG) code = 1975-2) may cause fal sely elevated biliru bin results. Total and direct bilirubin must not be measured from s amples containing indo cyanine green. False el evation of total bilirubin can be seen in patient s with IgG concentrations above 28 g/L. [Automate d message] The system whic h generated this result transmitted ref erence range: <=1.2. T jenna reference range was not used to interpr [...] Indirect (test 0.2 mg/dL 0.0-0.9 code = 1970-) MD DorantesTotal Ovstkke6670-12-23 23:57:00 Test Item Value Reference Range Interpretation Comments Total Protein (test code = 2885-2) 7.2 g/dL 6.4-8.3 MD DorantesAlkaline Yltvucbvfyv0418-13-34 23:56:56 Test Item Value Reference Range Interpretation Comments Alk Phos (test code = 6768-6) 64 U/L 40-129 MD DorantesUxxhiixwUFM8588-94-79 23:56:54 Test Item Value Reference Range Interpretation Comments ALT (test code = 29 U/L See_Comment [Automated message] The 1741-11) system which ge nerated this result transmit mary reference range : <=41. The reference range was not used to interpr et this result as shavon l/abnormal. MD DorantesAlbumin Iastx4001-26-52 23:56:53 Test Item Value Reference Range Interpretation Comments Albumin Lvl (test code 3.7 See_Comment [Aut omated message] The = 6113) system which ge nerated this result tra nsmitted reference range : 3.5 - 5.2 gm/dL. The refe rence range was not used to interpret this result as normal/abnormal . MD DorantesAspartate Ulvblesrvhwanfog2068-78-90 23:56:51 Test Item Value Reference Range Interpretation Comments AST (test code = 32 U/L See_Comment [Automated message] The 1920-01) system which ge nerated this result transmit mary reference range : <=40. The reference range was not used to interpr et this result as shavon l/abnormal. MD DorantesCOVID-19 (SARS-CoV-2) PCR-Asymptomatic AW3058-05-21 10:04:37 Test Item Value Reference Range Interpretation Comments COVID19 (SARS Not Detected Not Detected CoV-2) Result (test code = ____[place] 40556-6) qualitative reverse-transcr iptase polymerase mario alberto n [...] patients provid ed by the manufacture r ([employer]) c an be reviewed at:https://www. fda.go v/media/898341/ downlo ad. A fact shee t for Health Care pro viders is provided by the top former ([employer]) and can be reviewed at: https://www.fda .gov/m edia/875348/denys nload Results must be interpreted wit hin [...] were verified by the Microbiology Laboratory at [facility], CLIA Accreditation # : [id number] and CAP Accreditation # : [id number]. COVID19 SARS SOCIAL WORK SPECIALIST Swab Source (test code = 38613) COVID19 SARS Pre-Out of OR Indication (test Procedure code = 16686) MD Edgar Respiratory Culture w/Gram Msjdt9726-80-73 01:40:46 Test Item Value Reference Range Interpretation Comments Final Report (test code Normal site shayna A = 8488) present.Generally of low significance.Correlate with clinical data and culture history. Path Review (test code The results have been A = 8492) reviewed and electronically signed by Pathologist:BERTA BRADY MD #[id number] Gram Stain Report (test Moderate WBC's A code = 648-6) seenEpithelial cells seenModerate Gram Positive CocciModerate Gram Variable Madan Lab Interpretation Abnormal (test code = 48620-7) MD DorantesStreptococcal Urine Antigen Path Xepqur3083-45-37 07:11:21 Streptococcal Urine Antigen Path ReviewPresumptive negative for S. pneumoniae antigen in urine, suggesting no current or recent pneumococcal infection. Infection due to S. pneumoniae cannot be ruled out since the level of antigen present in the urine may be below the detection limit of the test....Reviewed and Electronically signed by Pathologist:Amaury Sinha MD, PhD #[id number] Comment: AMAURY SINHA MD, PhD - [id number] by: AMAURY SINHA MD, PhD - [id number] Date/Time: 07.11.2021 1:11 AM DIRECTOR FEDERAL Transcribed Date/Time: 07.11.2021 1:11 AM CSTElectronically Signed By: AMAURY SINHA MD, PhD - [id number] on 07.11.2021 1:11 AM [facility]MD AndersonLegionella Urine Antigen Path Bbexsz0986-76-42 07:11:20 Legionella Urine Antigen Path ReviewNegative for [...] Electronically signed by Pathologist:Amaury Sinha MD, PhD #[id number] Comment: AMAURY SINHA MD, PhD - [id number] by: AMAURY SINHA MD, PhD - [id number] Date/Time: 07.11.2021 1:11 AM DIRECTOR FEDERAL Transcribed Date/Time: 07.11.2021 1:11 AM CSTElectronically Signed By: AMAURY SINHA MD, PhD - [id number] on 07.11.2021 1:11 AM [facility] AndersonMRSA Screening Dbqkzxg4216-94-81 17:31:51 Test Item Value Reference Range Interpretation Comments Final Report (test No Methicillin resistant code = 8488) Staphylococcus aureus isolated. Path Review (test Culture yield may be code = 8492) affected by sample quality, prior treatment, and transportation conditions....The results have been reviewed and electronically signed by Pathologist:Amaury Sinha MD, PhD #[id number] MD Juanjo Wilburn (In-House)2021-07-10 12:49:59 Test Item [...] res ults. [Automated mess age] The system [employer] generated this result transmitted ref erence range: <=18. Th e reference range was not used to int erpret this result as normal/abnormal . Lab Interpretation Abnormal (test code = 38184-0) MD DorantesCalcium Ionized, Sfursy1974-10-32 04:43:41 Test Item Value Reference Range Interpretation Comments V Ion Ca (test code = 49953-8) 0.96 mmol/L 1.15-1.29 L Lab Interpretation (test code = Abnormal 05096-9) MD DorantesStreptococcus pneumoniae Urine Vzkazko4606-95-45 23:04:40 Test Item Value Reference Range Interpretation Comments Streptococcal Urine Antigen Negative Interpretation (test code = 30666654) MD DorantesLegionella Urine Stoskuj1475-84-47 22:58:02 Test Item Value Reference Range Interpretation Comments Legionella Urine Antigen Negative Interpretation (test code = 2583380) MD DorantesLmrgniokQwvlvucysvflu2370-04-47 00:33:03 Test Item Value Reference Range Interpretation [...] extended diluti on as it exceeds the top former's recommended krishnamurthy it. Caution should be exercised when interpreting han ch values and done in conjunction wit h clinical contex t. [Automated mess age] The system [employer] generated this result transmitted ref erence range: <=0.08. The reference range was not used to int erpret this result as normal/abnormal . Lab Interpretation Abnormal (test code = 75825-1) MD DorantesGeneral Laboratory Add-On Sxhv1874-06-07 22:22:54 Test Item Value Reference Range Interpretation Comments Ordered (test code = 6568) Test Added Test Needed (test code = 7604) Procalcitonin MD Breaux Bsrwe0970-40-80 19:02:48 Test Item Value Reference Range Interpretation [...] . Lab Interpretation Abnormal (test code = 92288-6) MD DorantesCardiac Jfcup6003-35-49 18:51:30 Test Item Value Reference Range Interpretation Comments CK (test code = 5206) 112 U/L 39-308 CK MB (test code = 2.4 ng/mL See_Comment [Automat ed message] 5200) The system [employer] generated this result transmitted ref erence range: [...] res ults. [Automated mess age] The system [employer] generated this result transmitted ref erence range: <=18. Th e reference range was not used to int erpret this result as normal/abnormal . Lab Interpretation Abnormal (test code = 22795-2) [facility] Chem 8 without Hemoglobin and Xyzehpzjtx1430-59-12 18:20:24 Test Item Value Reference Range Interpretation Comments POC NA (test code = 131 See_Comment L [Automa mary message] 19709-9) The system [employer] generated this result transmitted ref erence range: 138 - 14 6 mEq/L. The refe rence range was not u sed to interpret this result as normal/abnor mal. POC K (test code = 2.3 See_Comment A Method de scription: 78254-8) The i-STAT is a n analyzer used f or in vitro quantific ation of various anal ytes in whole blood. The device uses a s [employer] disposable cart ridge which contains microfabricated sensors, a calibration che [place], fluidics system , and a waste chamber . Each test cartridge contains chemic ally sensitive biose nsors on a FamilyID ip that are config ured to perform [...] L [Automa mary message] 2068-08) The system [employer] generated this result transmitted ref erence range: 98 - 109 mEq/L. The refe rence range was not u sed to interpret this result as normal/abnor mal. POC VTCO2 (test code 32 See_Comment H [Autom ated message] = 2026-06) The system [employer] generated this result transmitted ref erence range: 24 - 29 mEq/L. The reference r jackie was not used to interpret this result as normal/abnor mal. POC Anion Gap (test 21 mmol/L -20 H code = 19513) POC BUN (test code = 16 mg/dL 01-27 6299-2) POC Crea (test code 1.0 mg/dL 0.6-1.3 Medicati ons, = 58330-3) especially hydroxyurea or supplements, han ch as ascorbate, can interfere with test results causing a falsely and significantly h igher result than exp ected. If a problem is suspected with a patient's resul t, a sample should b e sent to the [facility] for confirmatory te sting. Method descript ion: The i-STAT is a n analyzer used f or in vitro quantific ation of various anal ytes in whole blood. The device uses a s lindsey disposable cart ridge which contains microfabricated sensors, a calibration che ution, fluidics system , and a waste chamber . Each test cartridge contains chemic ally sensitive biose nsors on a FamilyID ip that are config ured to perform spec ific tests. The microfabricated sensors measure analyte concent ration by an electroch emical assay. POC eGFR-AA (test 87 See_Comment Normal eGF R >= 60 code = 07107-4) mL/min/1.73 m2 The eGFR is calcula mary [...] lysis) [Automated mes vasquez] The system whic [employer] generated this result transmitted ref erence range: >=60 mL/min/1.73 m2. The reference range was not used to int erpret this result as normal/abnormal . POC eGFR-JOSELITO (test 75 See_Comment Normal eG FR >= 60 code = 81766-0) mL/min/1.73 m2 The eGFR is calcula mary [...] eve lysis) [Automated mes vasquez] The system [employer] generated this result transmitted ref erence range: >=60 mL/min/1.73 m2. The reference range was not used to int erpret this result as normal/abnormal . POC Glucose (test 132 mg/dL 70-99 H code = 36174-7) POC Ion Ca (test 1.00 mmol/L 1.12-1.32 L code = 36481-5) POC Sample Type Venous (test code = 6690) POC Clean Dev (test Yes code = 6672) Performing Lab (test MDA Main Main Ca mpus code = 79647) [facility] Cli nical Lab, [address], [place] [address]; Pump Installation And Servicer: Paty Chavez MD Lab Interpretation Abnormal (test code = 04696-7) [facility] [id number] 18:20:23 Test Item Value Reference Range Interpretation Comments POC Critical Comment See Note Test pe rformer notified (test code = 8955) Ordering Licensed Provider and /o r designee of POC Potassium criti nikki Results. MD DorantesCreatine [id number] 18:26:09 Test Item Value Reference Range Interpretation Comments CK (test code = 5206) 84 U/L 39-308 MD DorantesNT-Pro BNP (In-House)2021-06-22 18:26:08 Test Item Value Reference Range Interpretation Comments NT ProBNP (test code = 1199 pg/mL See_Comment H [Aut omated message] 2999) The system whic h generated this result transmit mary reference range : <=125. The refe rence range was not u sed to interpret th is result as normal/abnormal . Lab Interpretation Abnormal (test code = 99215-9) MD [id number] 18:26:07 Test Item Value Reference Range Interpretation Comments CK MB (test code = 2.6 ng/mL See_Comment [Automat ed message] The 2389) system which ge nerated this result tra nsmitted reference range : <=10.4. The reference r jackie was not used to int erpret this result as normal/abnormal . MD [facility] Outside [id number] 20:17:02 Test Item Value Reference Range Interpretation Comments Materials Received (test h2dyoXOsDFWdnKIfGpIm code = 9973) TSHtQWEer3cpYCFdsOIy ZzEwMzNcZnRuYmpcdWMx SARpUzVta8lrx508hHGt x2pmFOUrSwB7gYDoYCIt nVJeF758YJShENcjn5qc s0AyMFMgkSArc9A9DYES omoupPa9cOikP34qa2A9 IrtiO5qrKGTdDBGaV3Zh UU0tSQSlGms8NMR7OOR8 MNVuQFQgN5BrXR5cILNr oIYeXTk5r1bayXwmLGBx TOO2i0trLDijksGrCR9s vg5xuJf3l5ewuqSjXYJd PUOwqZUUGTLjV1WztByy Ht9oqAz9eLgbRbhuPJR6 Hux5EE7vuk78xhz3rVrl OBQynjwdWtO6RQotAGFp lipsBTt1BUitICOpoXxr MFxtYXJncjcyMFxtYXJn wNW6AZNazPIsO1MsROVv OBasLLTlwqb6KyLaMv1l iJUitIuzDQwsa7cyi5oz hYErBne9QCIhZnLbKobv TLwbl4Qth9qbVZDdjd9d WVN7yDEvgZgdz3F4bBUk QYHvjVCrpsZfOOPfju97 oLNvoPEhcAKpue7wzsBr rNUgfEOvBVC4fXTtgcEw WFXngVLmLETyJN9kjWFk SHKceO6chdzjYVOkEaZo vvmkUQLgaVmplbXrFh9i mEgpPUA7BIwnK6cjkV5q UgB8VXlzQ8amlR0uMHd2 AZtlvMZ9OMVqoI9nNA7z uqxee7krAdDvUN5ireae y5ytNrQzSP5vuwe6y0ee JRK5SNygWQQvOwU8egN6 NDBcaGVhZGVyeTcyMFxm f354ERN2GhQaDERai0Ly A2TstMivK80peGvgI04g BAJruSewwX5mwPswvG0g DoSaBcZnCTp1ke94YLl5 bsbxeQggCQm5mgFkDWCf MYM3UQKisOLhRARbS6o1 spGvSIEcAYY1FUHpaAEw XMVgG4l3lhGjJIE3BUx5 cnBhZGRmdDNcdHJwYWRk YjBcdHJwYWRkZmIzXHRy vYDcbEPppVNvhG5uoYql WMLgbISumD3tGPL6SROz cmgzMjBcdHJoZHJcbHRy ya94HLIrrsMvqGXbjZwk cXWtRSR2WJEnRXDrNNDb OMR2PFTkMmGdqvVyMAsk bGJyZHJiXGJyZHJzXGJy XWO8WIYtPtFkctBoQRoe bGJyZHJsXGJyZHJzXGJy MWR0FGWfUkDydqJyHOyz bGJyZHJyXGJyZHJzXGJy JYY8VSUtKaLazyHdJKjg bHBhZHQxMFxjbHBhZGZ0 J4umuCXtKKEzHJjypJAg WUYuW7cldMWuUVbaICRd cGFkZmwzXGNscGFkYjBc C6geNYQrGpCqH8AxhNf4 MDAwXGNsdmVydGFsdFxj hOJiQAE7GQPcZFJeHMEb EMN5SOPrSiJikzZnOBbn bGJyZHJiXGJyZHJzXGJy HMN9QQOpHvSuxnVtWSjm bGJyZHJsXGJyZHJzXGJy WSK5VIOhZwWofkZaNDbk bGJyZHJyXGJyZHJzXGJy CHK4FMPlRqRnjmYzJScq bHBhZHQxMFxjbHBhZGZ0 T5kiaECyLMIsTChczJUc PIFgT0duwCXtRBdbVZAj cGFkZmwzXGNscGFkYjBc J1mpITFkSjKkE1KpiBx6 NjAwXGNsdmVydGFsdFxj bHQcZFZ4NJJtHCFyYEHe MPE8JGTbIwHufiJmXTuo bGJyZHJiXGJyZHJzXGJy HIQ8JMMoWsUhmgKxYBjk bGJyZHJsXGJyZHJzXGJy FTL7AEJpCgEfgySuUIvs bGJyZHJyXGJyZHJzXGJy BED0ERNfLaLlfwHtKVhu bHBhZHQxMFxjbHBhZGZ0 S6bdxVUrEZViLBralYFd DWWjA8wtlYToWGmbLZTj cGFkZmwzXGNscGFkYjBc G4oyRWCgSyJdL4PeoAl1 SxVfLVEbyvJilO00Jwbk h5SfNKMfRNI8BSecJJhr bFxwbGFpblxmMVxmczIw JXankofmQCWjXLrvU8xx HdHuWZKdhSqiPEvgc6Cv XGYxXGNmMlxmczIwXGIg QFVsWTPkvW9bUqlcV6Wm aS2vIYrnJlcdL0hrBUAh f1BwiC1sAKmypBGvstqb MVxmczIwXGxhbmcxMDMz SWnpR5dqWoAlVZLrpKlk NXavj7XfQKWdDKEwGxuz ybKqXNu7paGrAOZptNuc nSZsZEciuiJitCqub5Pa rbSyuOwzCAHnFDc1tqBx nsodqGd1nOYsfChzAXVv tYetjD1uZcMzOjNrWIgr bGFpblxmMVxmczIwXGxh glzdPCQrHBgaZ0jbXkHf XKYzpFueTSjzl1EfGCKv BZOdFvojmmKuURMoE49z bGVjdGVkXHBsYWluXGYx XGZzMjBcbGFuZzEwMzNc aGljaFxmMVxkYmNoXGYx ANuzL6srLySqO8RnSSAg YmToaDVrW5opF2GgcZcs YXJkXGludGJsXHNzcGFy SCS5qRRyvxJslPBfiPQd LPYiVSolVVC5cSZkecfu yCHjhmaqTJqiebQ3EQAd YWluXGYxXGZzMjBcbGFu ZzEwMzNcaGljaFxmMVxk AwMtKVBwHWyiT5znSvSd Y4GrPVLqGqKhSrHBKIWa aXZlZFxwbGFpblxmMVxm czIwXGxhbmcxMDMzXGhp W2drGoIqMTThcQmeQNmi e3UvCVFcLIQwIljfxfKn FNb1wpAjJQAzqNlfuX70 Czijrg10WEPgl2hzNNKn J1OdqSBqMYEvlJErENog MDhcdHJwYWRkZmwzXHRy cGFkZHIxMDhcdHJwYWRk ZnIzXHRycGFkZHQwXHRy cWQkWLY4Y1o4ucUfKDPx NNc1ipMiUFEbDtVzlLFg MYU0QXz0HnnbanE7zRNr V0a6YwbvviDyYSwniXSi to49FITctcCdfXNfkTww dTRpJIZ5GJFnZBMgTSBy HUA1XVJvRvIlyqDkEBnq bGJyZHJiXGJyZHJzXGJy VMZ2FSMjIhZwcdBkHFsp bGJyZHJsXGJyZHJzXGJy DSK0QZFpVsDshyKfPLqz bGJyZHJyXGJyZHJzXGJy WGF0EEYsPeSuzfApKNqe bHBhZHQxMFxjbHBhZGZ0 H1rkoAYaHAWjKHxhqOBy WCMeY3wweKZqGPpaQBUu cGFkZmwzXGNscGFkYjBc Q5yqABJuQgLgO3SkyTs7 MDAwXGNsdmVydGFsdFxj zWPmLXN1XOSpDWEnCNSb TQJ4EHRtSzSryuCnKOre bGJyZHJiXGJyZHJzXGJy ZCV2JFJuUuHjneIjGAnd bGJyZHJsXGJyZHJzXGJy OKG5ZPJyPlIywdQeMRkq bGJyZHJyXGJyZHJzXGJy KLH1RLBcEfIckgQmMNjj bHBhZHQxMFxjbHBhZGZ0 P5oanLYiGANrKHsljEPn NREsR6lthOAkRHetJOTc cGFkZmwzXGNscGFkYjBc P9bkQQBpCiAeS0PfsLt0 NjAwXGNsdmVydGFsdFxj nOVbSHZ6NNGjNOZvTYYi NCV3EGZiGaVlktPbPAdl bGJyZHJiXGJyZHJzXGJy JUZ0FDZwQaGftlXtLIem bGJyZHJsXGJyZHJzXGJy EKH1LQIfUtCmpiLsHYsm bGJyZHJyXGJyZHJzXGJy QYR3DRKrRnJrtwJjSGlb bHBhZHQxMFxjbHBhZGZ0 J3ugeUIgTBLlTBvmhJVh UUKbF2lxxMZsWAfqJJUw cGFkZmwzXGNscGFkYjBc R4kjATViLmPkI0EnkDo5 QbOdQUYjhpShtE35Hdpi d3RvCQPbCPO5KXovHIgy bFxwbGFpblxmMFxmczI0 XHBsYWluXGYxXGZzMjBc bGFuZzEwMzNcaGljaFxm VOdwBzNrNJVxFJqcV2ll OxLrH1DuUBEuLyDdFK1e JmI8ATAdEOY4NUI3VJML UEJsLXPFJ6SJSazjTZDV R7OfoUoanV4zFdChPdIe DYkaYY4xJORqI3zygJQw DSSbPRElN6iyAdGulB9o aFxmMVxjZjJcZnMyMFxs dHJjaFxjZWxsXHBhcmRc eQ32Rwtot6MfIVXvEWL0 MFxzMFxxbFxwbGFpblxm DMqwfkK5SNLzMSvzXNXx XGZzMjBcbGFuZzEwMzNc aGljaFxmMVxkYmNoXGYx SGedA3mwHkMxO0NaXWOr MjAgMTAvMjUvMjAyMVxw bGFpblxmMVxmczIwXGxh kailBUMrZNawQ3cyDrRb MBNleOitSAzdt7DzLSTv NDAsZuhknuSgEOu6baMr XGNlbGxccGFyZFxpbnRi qZwyl5JicwTqsSeyMBOg XHFsXHBsYWluXGYwXGZz AuGfrOzrdM6iApJvAlTp AVhlDD4lWBMyB8fvkXBx JEDeYMLpH0fcTbQbeW2a aFxmMVxjZjJcZnMyMCAx ZJ8lBh3mRMFsDWVeTBfo XGYxXGZzMjBcbGFuZzEw MzNcaGljaFxmMVxkYmNo SHGaMRbfZ8ruVbJyF8Or NYAzKuHpvPNtO8yeA9Wa zQbccfGuzDpym9qrmICy WSojz8JlscLnoFauTYWn XHFsXHBsYWluXGYwXGZz FjBxjVlkeL9hAlXjOuYa MBomOU0zZMXtB4htcHNr YWYtZKHvD7miSaPbnV7j aFxmMVxmczIwXHBhcn0= Addendum 1 (test code = w8xcwCRvMKFqwSP7VbYx 37) XBXbt2ahe1TalUUdtKVx BKtbfHDiwvYppp26pZI3 uB45BM7hBDFnFiL1ILVw siM5Cea1EIYjNKTawXQp I884k0sdg4zatsOfyIC4 uWtjOCPtkbevTqN1JVva TPRrhgadJTj8XIncZRWj gUY7DODucNOvM9ThGFKn MJ5mzjp4JTC8NGvnARJj LdH3CFMjaJJfVDXrvHhe BCgdv590NQV4FyZcXPVj pcQcdHgfgS8yTgAsVBCG MGZiwVrdnzVzJD7tyLJr dPEpOGOnK9XjcqLoKG7n LIRtEgPpQdUpTaKfNE55 bQBhNAJwUXVtRSXscZ5k XgyjIxH4TKOtCJU4MBYj EHXOGBXkUJUVO2RIDWVy BGZVFpfpB52teLIusYPp IY4gREHmYhF7TqAxSbQp XHBhclxwYXIgRGVlcGVy XJoqhhRvslRoPvZveR6r ptOwXdO4OBQrAWN9FQQq IHdlcmUgZXhhbWluZWQu TBWlSPBdkwkxcB3bbSXp nFIqhf7ljEDgihVuVEhy msU1sfQmIW4oNAWeYYEc cn0= Diagnosis (test code = q2sqaEWdAHGrkIZ8RiPr 34) SZYbq2xmt8QpgJLrwVNe MWqotEOwqqEsgm10hOY2 uC09QA9sQFGeNtI3JNAb wyI1Xlr7PPPvNEZuhQUr O003t7xmu8ojndRazQG5 YSFgVVYaB8DsUN6kQUZq kZHoQ15dvTQhJXD1ARWe EGPejIMoJICbYMF2DHCu dHIcA5dfAGIlIJ9npqpe CJkzDPebAPMdcTB4BTXl rKZmS0ItIZEdXZvfTKXa apb0UeUeAf7txACgqXwv MFxwYXJkXHBsYWluXGZz OrRqF2FxIL97nSShHZRm KDIxOklTMTUzOCwgNiBT Gov9SNLolfzeKoSlyCOx XGxpNzIwXGxpbjcyMCBM TRU2yqvyAHBmD8y6LHYx mUDanc8xUPxiWajfoTK1 IChBKTpccGFyXGxpMTQ0 RYclnK9tWUIkTXYKVFZX G7PNWKKTZDyxS1HSQ9tN L37EJMFuiJYqmVZsi6Wk NEPytoGpteJke2zwexnd CPUvaDd5NdNepSnhLlAo RZEtdkDCKOZ0umngSBas OkBoOVH6xKDtw2iuXHGu sF5ts1xgGAGwQasrSMSt dAyzUVTtAFxlzhX5PTUp Q6O2WI4gaBKaqOZrc4Qs SShenGsdB6dbv18uXyMj czChWP2oLTAdc28tNR2x Q2D7uKUrYYUzkkM1gK9k jlavCHVvvLt7ElYdiKin OjEeOZXjnsGFEAA7owhu SVnyBnIxQvRia9Dunq1m OXddP58pPIveZtlnaJA3 IChDKTpccGFyXGxpMTQ0 BUnajN1cYUVmQQEphXBh r2GwMR43E96uAOExcxDs mYmvj2Qou0GxtFEofxkx A5pwviInRK1uC5S4vAAj OSAzpdW9cF5kdinfTYAq jELwAYMtikUfX37ED2PZ TlxwYXJ9 Junior Software Engineer(s) (test code k5napBWyGYTjiKN4LkXr = 9858) LOCri6wyt3IwrBPjiUSy BSxqsPUwdmFlja80sXK7 eD62TI1iOKAfHcT3UVNl neG5Ndw2RNKcEHLylEMh A921b7ujh2lltbLjlNM8 nYnaRFKfknqtSzI8PZbk ZIBksmghFSu7NDklXZPe rYZ2POXilWHaV5JkZSQg MB0lbgh2DXV3JDvcZSXb UlK6LBSnzRFwWXQctMra JWqdf327ORW5XyCzBOSh qaEtgExrjI7aIsNeOKMX wy6wPThioVBxyGFhG3gw bGlhbXMgaGFzIHJldmll w8VgRWDvxrPsFPGqxwZs T10rN5Yzae6leUNulM== [employer]arker [employer](s) (test p2vkkAQrXSOdeEN9VlIo code = 9841) RTXgn4xsr3ZtpUXjlUDo HJrobHGkkvOibk09uPU0 uO50NK4yGTQkQtC2OQJu izT7Ijm6UWCeJKIsrKVk P036d3aiw7cisdDvvIV5 lAqhVXZgxjgcGmI1RTbm KTBqatpsZTm5OIdrYETd jCZ6YBVlyRVwE5HeSXZj IC8lzwf5LFR5OGbyCWNr AzX6LKHbnVFbVVTgdBgc IQtxa897ENK7OnHkHQZc vkOffHkbdR1gBvWwFPXN OiBBXHBhciBOOiBDXHBh cn0= Disclaimer (test code = x0bpgEYlBZLraOMiXcSo 9844) JCPtIQKct9zmWSZzxNXs ZzEwMzNcZnRuYmpcdWMx VVXyYnRiw4jzp376aDGs q3wrNUEgAyA4vGJwKHSr vPCxO845WBYeWHcsq5zh h9AhOLNbnRZkt0S4JACV fftoqIj8wXwxR80mq8D0 RlaqW6paLUEpUQIaB3Ap MQ3jGANvKrg6VNC1CHP0 AKZnHAYhQ6NfWF8sMTPs oYVkXSq8s0kbsHaqOTVb PZC1f0xxOBlurrOkNL1n zv6psJs8h2yrxgBpEEBi TMLtbCPJBJFzF6MlkOox Kj6yxFa2zJbvHeqsPDX8 Fmq8DY2sri35zmd2tNxw GRIjfbbtJtU5TMdoTYFp zljrGAw4NMeaTMMgzGC1 XKBumWBmB8MrVEGsGM0j ptl8LMH3KVxsVCNnFoN5 NDBcaGVhZGVyeTcyMFxm o656BFW3HrTnCU0rR6Ns d0W0zL3hiUSaLWBghZVd RpHiYIYcow3ebEUkUPin q5IpKXM6loY4yGKopDJv CJJpSY22Ooxhf5KeLjgs DOZ0RISwpjCyn8Uqg7xd HdAkozCtJ5qmG1QuQDNo JGRnGKLgAmHyqnMlh8Of w7LtrNWavFs9d7wnVZPu AJWsuTmks0qmOUS6DHDn U3Z7iFMza7mnGBrkPVJn zMM3vmS5FTBalNUqM5Ll qF7dKFGaLI5zsra3n9up RZR4ZVcbKLKyLjY0yzT2 NDBcaGVhZGVyeTcyMFxm c842OEQ1MjQsYJToz1Zt G3IreMciS49hhWhwK57b LUVizGblwZ3okOawzH8g ZjBcZnMyNFxxbFxwbGFp bqjoPIfavvJ9YRknqmtb BNOuBEuuI4ymGyHgPNHq zYmsEUonk1ZrGJGaKWVk IccconH1PCRBu94wLTZi c5OfQPTxxR0wxAXfXReq mwNveXD2AJdydyPtGqLf yuDmCTButR8rUZMiHQ4c IWOsprCcbl4yerDnBSKf UCBhP9DvczcbzGdfwlXu QMJzcr5iiwXsYUV1OVPO QO7DCSTcXYRpq29dJRDh sYxtpV5paISitnFlBEYi t5AljK4odPPSFPZyW6gb LP8kDLitk8SzlUUmrKXi pXT9NGIdl2EgNdIlanFk rCMpxZQxF4ObxKsqL0ic LWTnMRHmrhXomXDxm1Il APKfsKC4wBWtXU6JFuCC c42pFYToVWPDpvOnHTWu cWopnCI8hmO6wX3pSwKQ ZiBhcHBsaWNhYmxlLCBj r252aj7qyrK8SSYeGGQs zlyae1ElRXCtLZMmdL87 WETeTZZrup7blklquCAe vfYuL4Nnafo0bI9oPWNt YWluXGYxXGZzMjJcbGFu ZzEwMzNcaGljaFxmMVxk NgDfBBIjQHesY3bdTsEe ZnMyMlxwYXJ9 [place] COVID-19 (MAURA-CoV-2) PCR [id number] 01:46:37 Test Item Value Reference Interpretation Comments Range COVID19 SARS Pre-Out of OR Procedure Indication (test code = 63704) COVID19 SARS Result Not Detected Not Detected (test code = 97963-2) COVID19 SARS SARS-CoV-2 NOT Detected. Interpretation (test Reference Range: Not code = 35421) Detected Methodology: The Fontanez RealTime SARS-CoV-2 assay is a qualitative real-time reverse turbo electric operator polymerase chain reaction (shipping manager-PCR) test to detect RNA from SARS-CoV-2 in nasal, nasopharyngeal and oropharyngeal swabs from patients with signs and symptoms of infection who are suspected of COVID-19 by their health care provider. The Fontanez RealTime SARS-CoV-2 performed on the SueEasy000 System is a dual target assay with [...] CLIA-certified, high-complexity Molecular Diagnostics Laboratory (MDL) at [facility] [place] under the Food and Drug Administration (FDA) s Emergency Use Authorization. Factsheet for patients: https://www.Tagoodiesnderson.org/ AbbottFactSheetPatientsFact sheet for healthcare providers: https://www.Tagoodiesnderson.org/ AbbottFactSheetHCP Test performed by:The [facility] Molecular Diagnostic [id number] [place] [address] MD DorantesGlucose, [id number] 18:55:04 Test Item Value Reference Range Interpretation Comments Glucose Random 136 mg/dL 70-199 Effective 12/03 12/17, the (test code = 9360) glucose r eference intervals have been updated based o n [employer] rommel delines (Standards of [...] Not fasting PEDRO LUIS) MD DorantesVitamin D [id number] 18:49:59 Test Item Value Reference Range Interpretation Comments Vitamin D 25 OH (test 42 ng/mL 30-100 Refere nce Range: code = 8018) Deficiency: <10 ng/mLInsuff iciency: 10-29 ng/mLSufficienc y: 30-100 ng/mLPotential toxicity: >10 0 ng/mL MD DorantesTMP HCV Ab Path [id number] 12:33:38 Test Item Value Reference Range Interpretation Comments HCV Ab Path There is NO Interp (test serologic evidence code = 8923) of Hepatitis C M AYRIN virus antibody. DELFINO FERNANDEZ,Dictated by: RUFINO FERNANDEZ,Dictated Date/Time: 05.04.2021 6:33 AM DIRECTOR FEDERAL Transcrib ed Date/Time: 05.04.2021 6:33 AM CSTElectronical ly Signed By: JOSEPHINE IN DELFINO FERNANDEZ, on 05.04.2021 6:33 AM Julián DorantesHepatitis C Virus [id number] 05:13:47 Test Item Value Reference Range Interpretation Comments HCVAb. (test Non Reactive Non Reactive Antibody detect ion in the code = 5762) immunocompromis ed and immunosuppresse d population may be delayed or absent entirely. There fore serial testing, correl ation with other clinical findings, and supplementa l testing (if available) should be taken into cons ideration when interpreti ng the results.Perform ed at:[facility] Blood Donor [id number] [facility], [place], [place] [address] [facility] [id number] 12:58:27 Test Item Value Reference Range Interpretation Comments POC Crea (test 1.2 mg/dL 0.6-1.3 Medications, code = 00386-7) especially hydroxyurea or supplements, han ch as [...] which contains microfabricated sensors, a calibration che [employer], fluidics system , and a waste chamber . Each test cartridge contains chemic ally sensitive biose nsors on a FamilyID ip that are config ured to perform spec ific tests. The microfabricated sensors measure analyte concent ration by an electroch emical assay. POC eGFR-AA (test 70 See_Comment Normal eGF R >= 60 code = 19447-4) mL/min/1.73 m2 The eGFR is calcula mary [...] f ailure <15 (or eve lysis) [Automated [employer]] The system VONTRAVEL generated this result transmitted ref erence range: >=60 mL/min/1.73 m2. The reference range was not used to int erpret this result as normal/abnormal . POC eGFR-JOSELITO 60 See_Comment Normal eGFR >= 60 (test code = mL/min/1.73 m2 The 43724-9) eGFR is calcula mary using the CKD-E [...] f ailure <15 (or eve lysis) [Automated [employer]] The system VONTRAVEL generated this result transmitted ref erence range: >=60 mL/min/1.73 m2. The reference range was not used to int erpret this result as normal/abnormal . POC Clean Dev Yes (test code = 6672) Performing Lab Radiology OP CTR Radiology OP CTR (test code = [facility] [place] [address]) MD [facility], [address], [place], [place] [address]; Point of Care L ab Director: MD MD Jose E Bedoya
[2021-09-30 17:03] LABS: Absolute Lymphocytes (CBC) 0.3 K/uL (0.7-4.9); Hematocrit 30.4 % (39.6-49.0); Lymphocytes % 6.6 % (15.3-44.8); MPV 8.2 fL (7.6-11.3); RBC Red Blood Cell Count 3.71 M/uL (4.33-5.43)
[2021-09-30 17:21] LABS: BUN Blood Urea Nitrogen 16 mg/dL (7-18); Bicarbonate 30 mmol/L (21-32); Glucose Level 189 mg/dL (74-106); Potassium 4.4 mmol/L (3.5-5.1); Sodium Level 130 mmol/L (136-145); Troponin High Sensitivity 13.5 pg/mL (<58.9)
[2021-09-30] MEDS ORDERED: METHYLPREDNISOLONE 125 MG INJ ONE (17:52)
[2021-09-30] MEDS ORDERED: LEVALBUTEROL 1.25 MG/3 ML NEB ONE (17:52)
--- NOTE | 2021-09-30 18:29 | RAD REPORT ---
EXAM DESCRIPTION: Garry Single View09/30/2021 5:12 pm CLINICAL HISTORY: sob COMPARISON: September 28, 2021 FINDINGS: The lungs appear clear of acute infiltrate. The heart is normal size IMPRESSION: No acute abnormalities displayed
--- NOTE | 2021-09-30 18:53 | ER ---
Nurse's Notes [facility] Name: Roland Lam Age: 71 yrs Sex: Male : 1950 Arrival Date: 09/30/2021 Time: 16:20 Bed 16 Private MD: Alanna Bullard Diagnosis: Shortness of breath;Pulmonary Congestion;Cough Presentation: 09/30 16:24 Chief complaint: Patient states: diff breathing since last night, hx of COPD and throat iw cancer. Coronavirus screen: Client presents with at least one sign or symptom that may indicate coronavirus-19. Ebola Screen: Patient negative for fever greater than or equal to 101.5 degrees Fahrenheit, and additional compatible Ebola Virus Disease symptoms Patient denies exposure to infectious person. Patient denies travel to an Ebola-affected area in the 21 days before illness onset. No symptoms or risks identified at this time. Initial Sepsis Screen: Does the patient meet any 2 criteria? No. Patient's initial sepsis screen is negative. Does the patient have a suspected source of infection? No. Patient's initial sepsis screen is negative. Risk Assessment: Do you want to hurt yourself or someone else? Patient reports no desire to harm self or others. 16:24 Method Of Arrival: Wheelchair iw 16:24 Acuity: HOWARD 3 iw 16:24 Onset of symptoms was September 30, 2021. iw Historical: - Allergies: 16:24 No Known Allergies; iw - PMHx: 16:24 CAD; COPD; Diabetes - NIDDM; High Cholesterol; THROAT CA; iw Screenin:43 Abuse screen: Denies threats or abuse. Denies injuries from another. Nutritional ww screening: No deficits noted. Tuberculosis screening: No symptoms or risk factors identified. Fall Risk None identified. Assessment: 17:39 General: Appears uncomfortable, Behavior is calm, cooperative. Neuro: Level of ww Consciousness is awake, alert, obeys commands, Oriented to person, place, time, situation. Cardiovascular: Patient's skin is warm and dry. Rhythm is regular. Respiratory: Airway is patent Respiratory effort is labored, Respiratory pattern is tachypnea. GI: Abdomen is non-distended, PEG tube in place, Site clean. Derm: Skin is fragile, is thin, Skin is pink, warm \T\ dry. 18:41 Reassessment: Patient appears in no apparent distress at this time. No changes from ww previously documented assessment. Patient and/or family updated on plan of care and expected duration. Pain level reassessed. Patient is alert, oriented x 3, equal unlabored respirations, skin warm/dry/pink. Respiratory: Breath sounds are coarse. Vital Signs: 16:24 BP 173 / 63; Pulse 105; Resp 26 S; Pulse Ox 99% on R/A; iw 16:30 Temp 97.5(TE); ww 17:45 BP 162 / 72; Pulse 99; Resp 15; Pulse Ox 100% on 2 lpm NC; ww ED Course: 16:20 Patient arrived in ED. am2 16:20 Alanna Bullard MD is Private Physician. am2 16:24 Triage completed. iw 16:25 Arm band placed on. iw 16:29 Carmen Tanner, KWAN is Primary Nurse. funes 16:30 Aaron Jaramillo MD is Attending Physician. kdr 17:09 Inserted saline lock: 20 gauge in left upper arm, using aseptic technique. funes 17:14 XRAY Chest (1 view) In Process Unspecified. EDMS 18:50 Alanna Bullard MD is Referral Physician. kdr 19:19 No provider procedures requiring assistance completed. IV discontinued. ke1 Administered Medications: 17:58 Drug: Xopenex (levalbuterol) (3) 1.25 mg Route: Inhalation; ww 17:58 Drug: SOLU-Medrol (methylPrednisoLONE) 125 mg Route: IVP; Site: left upper arm; Outcome: 18:52 Discharge ordered by . kdr 19:29 Discharged to home ambulatory. ke1 19:29 Condition: good 19:29 Discharge instructions given to patient. 19:41 Patient left the ED. ke1 Signatures: Dispatcher [employer] EDMS Aaron Jaramillo MD MD [facility] Shana Hollingsworth RN RN iw Oxana Stahl am2 Alyse Groves RN RN Carmen Tanner RN RN Vik Castañeda RN RN ke1 Corrections: (The following items were deleted from the chart) 16:25 16:24 Chief complaint: Patient states: diff breathing since last night, hx of COPD and iw laryngeal cancer iw
--- NOTE | 2021-09-30 18:53 | EDPHYS ---
Physician Documentation [facility] Name: Roladn Lam Age: 71 yrs Sex: Male : 1950 Arrival Date: 09/30/2021 Time: 16:20 Bed 16 Private MD: Alanna Bullard ED Physician Aaron Jaramillo HPI: 09/30 18:25 This 71 yrs old Male presents to ER via Wheelchair with complaints of Breathing kdr Difficulty. 18:25 The patient has shortness of breath at rest, with light activity. Onset: The kdr symptoms/episode began/occurred last night. Duration: The symptoms are intermittent, with no pattern. The patient's shortness of breath is aggravated by coughing, eating, exertion, light activity, is alleviated by nothing. Associated signs and symptoms: The patient has no apparent associated signs or symptoms. Severity of symptoms: At their worst the symptoms were moderate last night, severe in the emergency department the symptoms have improved moderately. The patient has experienced similar episodes in the past, a few times. The patient has been recently seen at the [facility] Emergency Department, this week. The patient states that last evening he had difficulty swallowing food. It caused him to cough violently for short period of time. He was unable to get his breath during that time. According to his subsequent to that his voice was different. He chronically has a muffled voice due to prior throat cancer. According to his his speech was mildly altered after this episode. Subsequent to that he has improved though not completely back to baseline at this time. He still feels somewhat congested and feels he is slightly dyspneic. He denies nausea or vomiting. He does not feel he aspirated any food. Historical: - Allergies: 16:24 No Known Allergies; iw - PMHx: 16:24 CAD; COPD; Diabetes - NIDDM; High Cholesterol; THROAT CA; iw ROS: 18:25 Constitutional: Negative for fever, chills, and weight loss, Eyes: Negative for injury, kdr pain, redness, and discharge, Neck: Negative for injury, pain, and swelling, Cardiovascular: Negative for chest pain, palpitations, and edema, Abdomen/GI: Negative for abdominal pain, nausea, vomiting, diarrhea, and constipation, Back: Negative for injury and pain, : Negative for injury, bleeding, discharge, and swelling, MS/Extremity: Negative for injury and deformity, Skin: Negative for injury, rash, and discoloration, Neuro: Negative for headache, weakness, numbness, tingling, and seizure activity. Psych: Negative for depression, anxiety, suicide ideation, homicidal ideation, and hallucinations, Allergy/Immunology: Negative for hives, rash, and allergies, Endocrine: Negative for neck swelling, polydipsia, polyuria, polyphagia, and marked weight changes, Hematologic/Lymphatic: Negative for swollen nodes, abnormal bleeding, and unusual bruising. 18:25 Respiratory: Positive for cough, "sounds productive", dyspnea on exertion, shortness of breath, at rest. Negative for hemoptysis, orthopnea, pleurisy. Exam: 18:25 Constitutional: This is a well developed, well nourished patient who is awake, alert, kdr and in no acute distress. Head/Face: Normocephalic, atraumatic. Eyes: Pupils equal round and reactive to light, extra-ocular motions intact. Lids and lashes normal. Conjunctiva and sclera are non-icteric and not injected. Cornea within normal limits. Periorbital areas with no swelling, redness, or edema. Neck: Trachea midline, no thyromegaly or masses palpated, and no cervical lymphadenopathy. Supple, full range of motion without nuchal rigidity, or vertebral point tenderness. No Meningismus. Chest/axilla: Normal chest wall appearance and motion. Nontender with no deformity. No lesions are appreciated. Cardiovascular: Regular rate and rhythm with a normal S1 and S2. No gallops, murmurs, or rubs. Normal PMI, no JVD. No pulse deficits. Abdomen/GI: Soft, non-tender, with normal bowel sounds. No distension or tympany. No guarding or rebound. No evidence of tenderness throughout. Back: No spinal tenderness. No costovertebral tenderness. Full range of motion. Skin: Warm, dry with normal turgor. Normal color with no rashes, no lesions, and no evidence of cellulitis. MS/ Extremity: Pulses equal, no cyanosis. Neurovascular intact. Full, normal range of motion. Neuro: Awake and alert, GCS 15, oriented to person, place, time, and situation. Cranial nerves II-XII grossly intact. Motor strength 5/5 in all extremities. Sensory grossly intact. Cerebellar exam normal. Normal gait. Psych: Awake, alert, with orientation to person, place and time. Behavior, mood, and affect are within normal limits. 18:25 Respiratory: mild respiratory distress is noted, Respirations: labored breathing, that is mild, Breath sounds: Upper airway congestion and bronchi. Lung bases were clear.. Vital Signs: 16:24 BP 173 / 63; Pulse 105; Resp 26 S; Pulse Ox 99% on R/A; iw 16:30 Temp 97.5(TE); ww 17:45 BP 162 / 72; Pulse 99; Resp 15; Pulse Ox 100% on 2 lpm NC; ww MDM: 18:25 Data reviewed: vital signs, nurses notes, lab test result(s), radiologic studies. kdr Counseling: I had a detailed discussion with the patient and/or guardian regarding: the historical points, exam findings, and any diagnostic results supporting the discharge/admit diagnosis, lab results, radiology results, the need for outpatient follow up. 18:52 Patient medically screened. kdr 18:52 ED course: Failure the nebulizer treatments, the patient brought forth a lot of sputum kdr which improved his breathing. He felt much better. Patient and his are happy with the care provided the plan for discharge and follow-up. 09/30 16:30 Order name: Basic Metabolic Panel; Complete Time: 17:43 kdr 09/30 16:30 Order name: CBC with Diff; Complete Time: 17:43 kdr 09/30 16:30 Order name: Troponin HS; Complete Time: 17:43 kdr 09/30 16:30 Order name: XRAY Chest (1 view); Complete Time: 18:46 kdr 09/30 16:30 Order name: EKG; Complete Time: 16:31 kdr 09/30 16:30 Order name: Cardiac monitoring; Complete Time: 16:42 kdr 09/30 16:30 Order name: EKG - Nurse/Tech; Complete Time: 16:42 kdr 09/30 16:30 Order name: IV Saline Lock; Complete Time: 17:09 kdr 09/30 16:30 Order name: Labs collected and sent; Complete Time: 16:59 kdr 09/30 16:30 Order name: O2 Per Protocol; Complete Time: 16:42 kdr 09/30 16:30 Order name: O2 Sat Monitoring; Complete Time: 16:42 kdr Administered Medications: 17:58 Drug: Xopenex (levalbuterol) (3) 1.25 mg Route: Inhalation; ww 17:58 Drug: SOLU-Medrol (methylPrednisoLONE) 125 mg Route: IVP; Site: left upper arm; Disposition Summary: 09/30/21 18:52 Discharge Ordered Location: Home kdr Problem: an acute exacerbation kdr Symptoms: have improved kdr Condition: Stable kdr Diagnosis - Shortness of breath kdr - Pulmonary Congestion kdr - Cough kdr Followup: kdr - With: Alanna Bullard MD - When: 2 - 3 days - Reason: If symptoms return, Further diagnostic work-up, Recheck today's complaints, Continuance of care, Re-evaluation by your physician Discharge Instructions: - Discharge Summary Sheet kdr - Shortness of Breath, Adult, [id number] kdr - Acute Bronchitis, Adult, [id number] kdr - Cough, Adult, [id number] kdr Forms: - Medication Reconciliation Form kdr - Thank You Letter kdr Signatures: Dispatcher [employer] Aaron Garcia MD MD kdr Shana Hollingsworth RN RN Alyse Groves RN RN
[2021-09-30 20:21] VITALS: TEMP 97.5
[2021-09-30 20:22] VITALS: BP 162/72; O2SAT 100
== END 2021-09-30 19:41 | disposition home or self-care (01) ==
LOC: ER 16:19
DX: R06.02 Shortness of breath (principal); R09.89 Other specified symptoms and signs involving the circulatory and respiratory systems; R05.9 Cough, unspecified; J44.9 Chronic obstructive pulmonary disease, unspecified; E11.9 Type 2 diabetes mellitus without complications; I25.10 Atherosclerotic heart disease of native coronary artery without angina pectoris; Z85.819 Personal history of malignant neoplasm of unspecified site of lip, oral cavity, and pharynx
CPT/HCPCS: 93005; 85025; 80048; 36415; 84484; 71045; 96374; 99284; J2930

== ENCOUNTER 2021-10-02 02:36 | Inpatient (IN) | payer OTHER ==
[2021-10-02] MEDS ORDERED: IPRATROPIUM BROM 0.5MG/2.5ML ONE (02:41)
[2021-10-02] MEDS ORDERED: ALBUTEROL 2.5 MG/3 ML NEB SOL ONE (02:41)
[2021-10-02] MEDS ORDERED: METHYLPREDNISOLONE 125 MG INJ ONE (02:43)
[2021-10-02] MEDS ORDERED: MAGNESIUM SULFATE 1 gm IVPB 1 GM/100 ML BAG IV ONE (02:43)
--- OUTSIDE RECORDS SUMMARY | 2021-10-02 02:43 | XMS REPORT | Clinical Summary ---
:1950 Author Organization [facility] MD Patel [facility] Address [address] [place] [address] Care Team Providers Name Role Phone Olivia Coleman DO Unavailable Slava Canseco MD Primary Care Provider MD Thang Unavailable Samantha Polk MD Unavailable Nirmal Davenport RD Unavailable Laurie Maurer MAINTENANCE WORKER Unavailable Hilario Lam MD Unavailable Joesph Payan [...] Active (PREVIDENT) 1.1 % twice daily. dental [place] teeth with creamIndications: cream and spit out [...] 1-2 tablets by 240 tablet 0 Active (Ledbetter) 5 mg-325 mg per mouth every 8 [...] Polk M, MD oropharyngeal phase Roberta Ortega, [facility]-HR ASSISTANT 09/23/2021 Travel 09/22/2021 Orders Only Nutrition [...] and Procedures MD Loy Romero Craig S, ELECTRIC TRACK SWITCH MAINTAINER 09/20/2021 Hospital Encounter Radiology Rj, Primary s [...] ANDRÉS 09/07/2021 Documentation Speech Pathology Kita Campos, CCC-HR ASSISTANT 09/07/2021 Documentation Speech Pathology Crista Connolly CCC-HR ASSISTANT 09/07/2021 Orders Only Head and Neck Erasto, 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); Medical Oncology Anca Sullivan APN Dysphagia , oropharyngeal phase 09/06/2021 Hospital Encounter Speech Pathology Antonella De La Rosa led (Patient OUMAR Morris Request) Crista Connolly CCC-HR ASSISTANT 09/06/2021 Documentation Speech Pathology Crista Connolly, CCC-HR ASSISTANT 09/06/2021 Documentation Speech Pathology Crista Connolly, CCC-HR ASSISTANT 09/05/2021 Nutrition Nutrition Slava Canseco MD Ruzensky, Debra A, ANDRÉS 09/05/2021 Telephone Nutrition Camilla Davenport, RD 09/02/2021 Telephone Radiation Rj, OUMAR Cortes 09/01/2021 Telephone April Wylie Discharge Cal l RN 08/31/2021 Orders Only Gastroenterology Michael Lam , Hepatology & DManuel, Nutrition 08/30/2021 Orders Only Speech Pathology Caprice Nolen M, CCC-HR ASSISTANT oropharyngeal p hase (Primary Dx) 08/29/2021 Anesthesia Event Endoscopy Sara Deras, Zach Knox, KAREEN 08/29/2021 Surgery Endoscopy Michael Lam DIAGNOSTIC UPP VINCE Rich, GASTROINTOSMIN Mcintosh ENDOSCOPY 08/26/2021 Prep for Surgery Gastroenterology Harman, Elizabeth, Iron de ficiency , Hepatology & OPTICAL GLASS SILVERER anemia, not o therwise Nutrition specified (Prim [...] larynx 08/25/2021 Documentation Speech Pathology Sara Lim, CCC-HR ASSISTANT 08/25/2021 Telephone Proton Therapy Wayne Castro [...] OUMAR Morris carcinoma of larynx Rebecca Brown, CCC-HR ASSISTANT 08/22/2021 Orders Only Radiation Rj, Primary [...] 08/08/2021 Documentation Head and Neck Clemons, Surgery [facility] 08/02/2021 Nutrition Nutrition Slava Canseco Primary [...] 07/25/2021 Documentation Head and Neck Clemons, Surgery 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 07/19/2021 Nutrition Nutrition Slava Canseco MD Ruzensky, Debra A, RD 07/15/2021 Telephone Proton Therapy Wayne Castro, RN 07/13/2021 Telemedicine Head and Neck Yumi Desir, Primary squa mous cell Medical Oncology MD carcinoma of larynx Erasto, Anca Sullivan MAINTENANCE WORKER 07/13/2021 Telephone Thoracic Erasto, Medicine Anca Sullivan APN 07/13/2021 Orders Only Head and Neck Yumi Desir, Medical Oncology 07/12/2021 Orders Only Head and Neck Eliza Booth, Primary squamo cell Medical shadow graph weight operator carcinoma o f larynx (Primary Dx) 07/08/2021 [...] MD Nick carcinoma of larynx ErastoAnca jalloh, MAINTENANCE WORKER 07/06/2021 Hospital Encounter Vascular Access Slava Canseco [...] specified 07/01/2021 Documentation Speech Pathology Crista Connolly, CCC-HR ASSISTANT 07/01/2021 Telephone Radiation Andring, Oncology Caprice [...] 06/29/2021 Travel 06/28/2021 Hospital Encounter Proton Therapy Slaav Canseco MD 06/28/2021 Travel 06/27/2021 Infusion Infusion [...] squamo us cell Medical Oncology Anca Sullivan MAINTENANCE WORKER carcinoma of larynx (Primary Dx) 06/22/2021 Emergency [...] Head and Neck Alyse Polk Medical Oncology Densie Nuñez 06/17/2021 Orders Only Proton Therapy Rj, Primary squam ous cell Alexandra, PA carcinoma of la rynx (Primary Dx) 06/17/2021 Travel 06/16/2021 Hospital Encounter Proton Therapy Slava Canseco MD 06/16/2021 Travel 06/15/2021 Office Visit Head and Neck Slava Canseco Hypomagnesemia (Primary Dx); Medical Oncology MD Nick Primary squamous cell carcinoma of laryn x Erasto, nAca Sullivan, MAINTENANCE WORKER 06/15/2021 Hospital Encounter Speech Pathology Ene Polk M, MD oropharyngeal phase Christy Chavez, [facility]-HR ASSISTANT 06/15/2021 Hospital Encounter Proton Therapy Slava Canseco [...] OUMAR Morris carcinoma of larynx Crista Connolly, CCC-HR ASSISTANT 06/08/2021 Office Visit Head and Neck Yumi Desir, 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); Medical Oncology Swallowing painful; Serum creatinin e raised; Hypomagnesemia 06/08/2021 Documentation Proton Therapy Maaem Cruz RD 06/08/2021 Travel 06/07/2021 Hospital Encounter [...] Travel 06/01/2021 Office Visit Head and Neck [place] squamo us cell carcinoma of larynx [...] f larynx 05/25/2021 Hospital Encounter Proton Therapy Salva Canseco MD 05/25/2021 Hospital Encounter Proton Therapy [...] OUMAR Morris carcinoma of larynx Cady Zuleta, [facility]-HR ASSISTANT 05/18/2021 Travel 05/16/2021 Hospital Encounter Proton [...] Steve Munguia MD Xu, Ya, MD after 10/02/2020 Immunizations Name Administration Dates Next Due Moderna SARS-CoV-2 Booster Vaccination (50 mcg/0.25 04/16/20 21 mL) Moderna SARS-CoV-2 Vaccination 08/07/2020, 07/10/2020 Surgical History Surgery Date Site/Laterality Comments CHOLECYSTECTOMY FEMORAL ARTERY STENT Left Left leg [place] ESOPHAGOGASTRODUODENOSCOPY 08/29/2021 Esophagus/N/A Pr ocedure: DIAGNOSTIC TRANSORAL DIAGNOSTIC UPPER GASTR OINTESTINAL ENDOSCOPY; Surg jay: Michael D. 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 Job Start Date Occupation Industry Not on file Not on file Not on file Travel History Travel Start Travel End [place] 04/28/2021 05/01/2021 COVID-19 Exposure Response Date Recorded [...] Appointment Speech Pathology Ene Polk MD [address] [place] [address] Kita Campos, [facility]-HR ASSISTANT [address] [place] [address] 10/28/2021 Ancillary Procedure Radiology Oralia Duong, PA [address] [place], [place] [address] (Rosario rk) 10/28/2021 Appointment Head and Neck Surgery Cipriano Polk MD [address], [place] [address] (Rosario rk) 06/26/2022 Appointment Radiology Ene Polk MD [address] [address] (Rosario valdes) Health Maintenance Due Date Last Done Comments COVID-19 Vaccination (3 - Moderna 05/14/2021 04/16/2021, , risk 4-dose series) 07/10/2020 Implants Implanted Type Area Systems Analyst Engineer Device Identifier Shelf Exp iration Model / [...] FOR Routine 08/25/2021 4:47 R esults for EXTRACTIVE METALLURGIST PM CDT this procedure are in the [...] Routine 07/12/2021 5:42 Resul ts for PM COCOA ROOM OPERATOR this procedure are in the results section. CALCIUM LEVEL TOTAL Routine 07/12/2021 3:09 Resu lts for PM COCOA ROOM OPERATOR this procedure are in the results section. .GLOMERULAR FILTRATION Routine 07/12/2021 3:09 R esults for RATE PM COCOA ROOM OPERATOR this procedure are in the results section. SERUM CREATININE Routine 07/12/2021 3:09 Results for PM COCOA ROOM OPERATOR this procedure are in the results section. ELECTROLYTE PANEL Routine 07/12/2021 3:09 Result s for PM COCOA ROOM OPERATOR this procedure are in the results section. BLOOD UREA NITROGEN Routine 07/12/2021 3:09 Resu lts for PM COCOA ROOM OPERATOR this procedure are in the results section. GLUCOSE LEVEL Routine 07/12/2021 3:09 Results fo r PM COCOA ROOM OPERATOR this procedure are in the results section. PHOSPHORUS LEVEL Routine 07/12/2021 3:09 Results for PM COCOA ROOM OPERATOR this procedure are in the results section. MAGNESIUM LEVEL Routine 07/12/2021 3:09 Results for PM COCOA ROOM OPERATOR this procedure are in the results section. BASIC METABOLIC PANEL, Routine 07/12/2021 3:09 CALCIUM TOTAL PM COCOA ROOM OPERATOR POC GLUCOSE SCREEN Routine 07/12/2021 1:45 Resul ts for PM COCOA ROOM OPERATOR this procedure are in the results section. POC GLUCOSE SCREEN Routine 07/12/2021 9:40 Resul ts for AM COCOA ROOM OPERATOR this procedure are in the results section. MANUAL DIFFERENTIAL AM 07/12/2021 1:56 Resu lts for AM COCOA ROOM OPERATOR this procedure are in the results section. Results CBC AM 07/12/2021 1:56 Results for AM COCOA ROOM OPERATOR this procedure are in the results section. CALCIUM LEVEL TOTAL Routine 07/12/2021 1:56 Resu lts for AM COCOA ROOM OPERATOR this procedure are in the results section. .GLOMERULAR FILTRATION Routine 07/12/2021 1:56 R esults for RATE AM COCOA ROOM OPERATOR this procedure are in the results section. SERUM CREATININE Routine 07/12/2021 1:56 Results for AM COCOA ROOM OPERATOR this procedure are in the results section. ELECTROLYTE PANEL Routine 07/12/2021 1:56 Result s for AM COCOA ROOM OPERATOR this procedure are in the results section. BLOOD UREA NITROGEN Routine 07/12/2021 1:56 Resu lts for AM COCOA ROOM OPERATOR this procedure are in the results section. GLUCOSE LEVEL Routine 07/12/2021 1:56 Results fo r AM COCOA ROOM OPERATOR this procedure are in the results section. PHOSPHORUS LEVEL Routine 07/12/2021 1:56 Results for AM COCOA ROOM OPERATOR this procedure are in the results section. MAGNESIUM LEVEL Routine 07/12/2021 1:56 Results for AM COCOA ROOM OPERATOR this procedure are in the results section. BASIC METABOLIC PANEL, Routine 07/12/2021 1:56 CALCIUM TOTAL AM COCOA ROOM OPERATOR COMPLETE BLOOD COUNT W/ AM 07/12/2021 1:56 DIFFERENTIAL AM COCOA ROOM OPERATOR POC GLUCOSE SCREEN Routine 07/11/2021 10:09 Resul ts for PM COCOA ROOM OPERATOR this procedure are in the results section. POC GLUCOSE SCREEN Routine 07/11/2021 8:52 Resul ts for PM COCOA ROOM OPERATOR this procedure are in the results section. POC GLUCOSE SCREEN Routine 07/11/2021 4:27 Resul ts for PM COCOA ROOM OPERATOR this procedure are in the results section. ECHOCARDIOGRAM 2D Routine 07/11/2021 4:16 Result s for COMPLETE PM COCOA ROOM OPERATOR this procedure are in the results section. CALCIUM LEVEL TOTAL Routine 07/11/2021 2:33 Resu lts for PM COCOA ROOM OPERATOR this procedure are in the results section. .GLOMERULAR FILTRATION Routine 07/11/2021 2:33 R esults for RATE PM COCOA ROOM OPERATOR this procedure are in the results section. SERUM CREATININE Routine 07/11/2021 2:33 Results for PM COCOA ROOM OPERATOR this procedure are in the results section. ELECTROLYTE PANEL Routine 07/11/2021 2:33 Result s for PM COCOA ROOM OPERATOR this procedure are in the results section. BLOOD UREA NITROGEN Routine 07/11/2021 2:33 Resu lts for PM COCOA ROOM OPERATOR this procedure are in the results section. GLUCOSE LEVEL Routine 07/11/2021 2:33 Results fo r PM COCOA ROOM OPERATOR this procedure are in the results section. PHOSPHORUS LEVEL Routine 07/11/2021 2:33 Results for PM COCOA ROOM OPERATOR this procedure are in the results section. MAGNESIUM LEVEL Routine 07/11/2021 2:33 Results for PM COCOA ROOM OPERATOR this procedure are in the results section. BASIC METABOLIC PANEL, Routine 07/11/2021 2:33 CALCIUM TOTAL PM COCOA ROOM OPERATOR POC GLUCOSE SCREEN Routine 07/11/2021 12:33 Resul ts for PM COCOA ROOM OPERATOR this procedure are in the results section. POC GLUCOSE SCREEN Routine 07/11/2021 8:52 Resul ts for AM COCOA ROOM OPERATOR this procedure are in the results section. CALCIUM LEVEL TOTAL Routine 07/11/2021 2:00 Resu lts for AM COCOA ROOM OPERATOR this procedure are in the results section. .GLOMERULAR FILTRATION Routine 07/11/2021 2:00 R esults for RATE AM COCOA ROOM OPERATOR this procedure are in the results section. SERUM CREATININE Routine 07/11/2021 2:00 Results for AM COCOA ROOM OPERATOR this procedure are in the results section. ELECTROLYTE PANEL Routine 07/11/2021 2:00 Result s for AM COCOA ROOM OPERATOR this procedure are in the results section. BLOOD UREA NITROGEN Routine 07/11/2021 2:00 Resu lts for AM COCOA ROOM OPERATOR this procedure are in the results section. GLUCOSE LEVEL Routine 07/11/2021 2:00 Results fo r AM COCOA ROOM OPERATOR this procedure are in the results section. PHOSPHORUS LEVEL Routine 07/11/2021 2:00 Results for AM COCOA ROOM OPERATOR this procedure are in the results section. MAGNESIUM LEVEL Routine 07/11/2021 2:00 Results for AM COCOA ROOM OPERATOR this procedure are in the results section. BASIC METABOLIC PANEL, Routine 07/11/2021 2:00 CALCIUM TOTAL AM COCOA ROOM OPERATOR MANUAL DIFFERENTIAL AM 07/11/2021 1:46 Resu lts for AM COCOA ROOM OPERATOR this procedure are in the results section. Results CBC AM 07/11/2021 1:46 Results for AM COCOA ROOM OPERATOR this procedure are in the results section. COMPLETE BLOOD COUNT W/ AM 07/11/2021 1:46 DIFFERENTIAL AM COCOA ROOM OPERATOR EKG, 12-LEAD (PORTABLE) Routine 07/11/2021 EKG, 12-LEAD (PORTABLE) STAT 07/11/2021 POC GLUCOSE SCREEN Routine 07/10/2021 9:45 Resul ts for PM COCOA ROOM OPERATOR this procedure are in the results section. POC GLUCOSE SCREEN Routine 07/10/2021 7:36 Resul ts for PM COCOA ROOM OPERATOR this procedure are in the results section. POC GLUCOSE SCREEN Routine 07/10/2021 4:26 Resul ts for PM COCOA ROOM OPERATOR this procedure are in the results section. CALCIUM LEVEL TOTAL Routine 07/10/2021 3:02 Resu lts for PM COCOA ROOM OPERATOR this procedure are in the results section. .GLOMERULAR FILTRATION Routine 07/10/2021 3:02 R esults for RATE PM COCOA ROOM OPERATOR this procedure are in the results section. SERUM CREATININE Routine 07/10/2021 3:02 Results for PM COCOA ROOM OPERATOR this procedure are in the results section. ELECTROLYTE PANEL Routine 07/10/2021 3:02 Result s for PM COCOA ROOM OPERATOR this procedure are in the results section. BLOOD UREA NITROGEN Routine 07/10/2021 3:02 Resu lts for PM COCOA ROOM OPERATOR this procedure are in the results section. GLUCOSE LEVEL Routine 07/10/2021 3:02 Results fo r PM COCOA ROOM OPERATOR this procedure are in the results section. PHOSPHORUS LEVEL Routine 07/10/2021 3:02 Results for PM COCOA ROOM OPERATOR this procedure are in the results section. MAGNESIUM LEVEL Routine 07/10/2021 3:02 Results for PM COCOA ROOM OPERATOR this procedure are in the results section. BASIC METABOLIC PANEL, Routine 07/10/2021 3:02 CALCIUM TOTAL PM COCOA ROOM OPERATOR POC GLUCOSE SCREEN Routine 07/10/2021 11:40 Resul ts for AM COCOA ROOM OPERATOR this procedure are in the results section. MANUAL DIFFERENTIAL AM 07/10/2021 6:09 Resu lts for AM COCOA ROOM OPERATOR this procedure are in the results section. Results CBC AM 07/10/2021 6:09 Results for AM COCOA ROOM OPERATOR this procedure are in the results section. CALCIUM LEVEL TOTAL Routine 07/10/2021 6:09 Resu lts for AM COCOA ROOM OPERATOR this procedure are in the results section. .GLOMERULAR FILTRATION Routine 07/10/2021 6:09 R esults for RATE AM COCOA ROOM OPERATOR this procedure are in the results section. SERUM CREATININE Routine 07/10/2021 6:09 Results for AM COCOA ROOM OPERATOR this procedure are in the results section. ELECTROLYTE PANEL Routine 07/10/2021 6:09 Result s for AM COCOA ROOM OPERATOR this procedure are in the results section. BLOOD UREA NITROGEN Routine 07/10/2021 6:09 Resu lts for AM COCOA ROOM OPERATOR this procedure are in the results section. GLUCOSE LEVEL Routine 07/10/2021 6:09 Results fo r AM COCOA ROOM OPERATOR this procedure are in the results section. TROPONIN T AM 07/10/2021 6:09 Results for AM COCOA ROOM OPERATOR this procedure are in the results section. PHOSPHORUS LEVEL Routine 07/10/2021 6:09 Results for AM COCOA ROOM OPERATOR this procedure are in the results section. MAGNESIUM LEVEL Routine 07/10/2021 6:09 Results for AM COCOA ROOM OPERATOR this procedure are in the results section. BASIC METABOLIC PANEL, Routine 07/10/2021 6:09 CALCIUM TOTAL AM COCOA ROOM OPERATOR COMPLETE BLOOD COUNT W/ AM 07/10/2021 6:09 DIFFERENTIAL AM COCOA ROOM OPERATOR POC GLUCOSE SCREEN Routine 07/09/2021 11:11 Resul ts for PM COCOA ROOM OPERATOR this procedure are in the results section. BLOOD UREA NITROGEN STAT 07/09/2021 10:35 Resu lts for PM COCOA ROOM OPERATOR this procedure are in the results section. CALCIUM IONIZED, VENOUS STAT 07/09/2021 10:35 Results for PM COCOA ROOM OPERATOR this procedure are in the results section. .GLOMERULAR FILTRATION STAT 07/09/2021 10:35 R esults for RATE PM COCOA ROOM OPERATOR this procedure are in the results section. SERUM CREATININE STAT 07/09/2021 10:35 Results for PM COCOA ROOM OPERATOR this procedure are in the results section. ELECTROLYTE PANEL STAT 07/09/2021 10:35 Result s for PM COCOA ROOM OPERATOR this procedure are in the results section. GLUCOSE LEVEL STAT 07/09/2021 10:35 Results fo r PM COCOA ROOM OPERATOR this procedure are in the results section. TROPONIN T STAT 07/09/2021 10:35 Results for PM COCOA ROOM OPERATOR this procedure are in the results section. PHOSPHORUS LEVEL STAT 07/09/2021 10:35 Results for PM COCOA ROOM OPERATOR this procedure are in the results section. MAGNESIUM LEVEL STAT 07/09/2021 10:35 Results for PM COCOA ROOM OPERATOR this procedure are in the results section. BASIC METABOLIC PANEL, STAT 07/09/2021 10:35 CALCIUM IONIZED PM COCOA ROOM OPERATOR LOWER RESPIRATORY Now 07/09/2021 5:33 Result s for CULTURE W/ GRAM STAIN PM COCOA ROOM OPERATOR this p rocedure are in the results section. POC GLUCOSE SCREEN Routine 07/09/2021 4:30 Resul ts for PM COCOA ROOM OPERATOR this procedure are in the results section. VASCULAR ACCESS Routine 07/09/2021 3:00 Results for ULTRASOUND PM COCOA ROOM OPERATOR this procedure are in the results section. CALCIUM LEVEL TOTAL Routine 07/09/2021 1:45 Resu lts for PM COCOA ROOM OPERATOR this procedure are in the results section. .GLOMERULAR FILTRATION Routine 07/09/2021 1:45 R esults for RATE PM COCOA ROOM OPERATOR this procedure are in the results section. SERUM CREATININE Routine 07/09/2021 1:45 Results for PM COCOA ROOM OPERATOR this procedure are in the results section. ELECTROLYTE PANEL Routine 07/09/2021 1:45 Result s for PM COCOA ROOM OPERATOR this procedure are in the results section. BLOOD UREA NITROGEN Routine 07/09/2021 1:45 Resu lts for PM COCOA ROOM OPERATOR this procedure are in the results section. GLUCOSE LEVEL Routine 07/09/2021 1:45 Results fo r PM COCOA ROOM OPERATOR this procedure are in the results section. PHOSPHORUS LEVEL Routine 07/09/2021 1:45 Results for PM COCOA ROOM OPERATOR this procedure are in the results section. MAGNESIUM LEVEL Routine 07/09/2021 1:45 Results for PM COCOA ROOM OPERATOR this procedure are in the results section. BASIC METABOLIC PANEL, Routine 07/09/2021 1:45 CALCIUM TOTAL PM COCOA ROOM OPERATOR OSCILLATORY PEP Routine 07/09/2021 1:21 PM COCOA ROOM OPERATOR OSCILLATORY PEP Routine 07/09/2021 1:21 PM COCOA ROOM OPERATOR OSCILLATORY PEP Routine 07/09/2021 1:21 PM COCOA ROOM OPERATOR POC GLUCOSE SCREEN Routine 07/09/2021 12:42 Resul ts for PM COCOA ROOM OPERATOR this procedure are in the results section. POC GLUCOSE SCREEN Routine 07/09/2021 8:56 Resul ts for AM COCOA ROOM OPERATOR this procedure are in the results section. MANUAL DIFFERENTIAL AM 07/09/2021 6:28 Resu lts for AM COCOA ROOM OPERATOR this procedure are in the results section. Results CBC AM 07/09/2021 6:28 Results for AM COCOA ROOM OPERATOR this procedure are in the results section. CALCIUM LEVEL TOTAL AM 07/09/2021 6:28 Resu lts for AM COCOA ROOM OPERATOR this procedure are in the results section. .GLOMERULAR FILTRATION AM 07/09/2021 6:28 R esults for RATE AM COCOA ROOM OPERATOR this procedure are in the results section. SERUM CREATININE AM 07/09/2021 6:28 Results for AM COCOA ROOM OPERATOR this procedure are in the results section. ELECTROLYTE PANEL AM 07/09/2021 6:28 Result s for AM COCOA ROOM OPERATOR this procedure are in the results section. BLOOD UREA NITROGEN AM 07/09/2021 6:28 Resu lts for AM COCOA ROOM OPERATOR this procedure are in the results section. GLUCOSE LEVEL AM 07/09/2021 6:28 Results fo r AM COCOA ROOM OPERATOR this procedure are in the results section. PHOSPHORUS LEVEL AM 07/09/2021 6:28 Results for AM COCOA ROOM OPERATOR this procedure are in the results section. MAGNESIUM LEVEL AM 07/09/2021 6:28 Results for AM COCOA ROOM OPERATOR this procedure are in the results section. COMPLETE BLOOD COUNT W/ AM 07/09/2021 6:28 DIFFERENTIAL AM COCOA ROOM OPERATOR BASIC METABOLIC PANEL, AM 07/09/2021 6:28 CALCIUM TOTAL AM COCOA ROOM OPERATOR TROPONIN T Routine 07/09/2021 6:28 Results for AM COCOA ROOM OPERATOR this procedure are in the results section. POC GLUCOSE SCREEN Routine 07/08/2021 10:08 Resul ts for PM COCOA ROOM OPERATOR this procedure are in the results section. POC GLUCOSE SCREEN Routine 07/08/2021 5:49 Resul ts for PM COCOA ROOM OPERATOR this procedure are in the results section. STREPTOCOCCAL URINE Routine 07/08/2021 5:17 Resu lts for ANTIGEN PATH REVIEW PM COCOA ROOM OPERATOR this pro cedure are in the results section. LEGIONELLA URINE Routine 07/08/2021 5:17 Results for ANTIGEN PATH REVIEW PM COCOA ROOM OPERATOR this pro cedure are in the results section. LEGIONELLA URINE Now 07/08/2021 5:17 Results for ANTIGEN PM COCOA ROOM OPERATOR this procedure are in the results section. STREPTOCOCCUS Now 07/08/2021 5:17 Results fo r PNEUMONIAE URINE PM COCOA ROOM OPERATOR this proced ure ANTIGEN are in the results section. GENERAL LABORATORY ADD Now 07/08/2021 3:35 R esults for ON TEST PM COCOA ROOM OPERATOR this procedure are in the results section. MRSA SCREENING CULTURE Now 07/08/2021 3:23 R esults for PM COCOA ROOM OPERATOR this procedure are in the results section. CT CHEST PULMONARY Routine 07/08/2021 1:38 Resul ts for EMBOLISM W CONTRAST PM COCOA ROOM OPERATOR this pro cedure are in the results section. XR ABDOMEN AP Routine 07/08/2021 1:31 Results fo r PM COCOA ROOM OPERATOR this procedure are in the results section. POC CRITICAL Routine 07/08/2021 12:14 Results for PM COCOA ROOM OPERATOR this procedure are in the results section. POC CHEM 8 Routine 07/08/2021 12:14 Results for PM COCOA ROOM OPERATOR this procedure are in the results section. PROCALCITONIN Now 07/08/2021 12:13 Results fo r PM COCOA ROOM OPERATOR this procedure are in the results section. FRACTIONATED BILIRUBIN Now 07/08/2021 12:13 R esults for PM COCOA ROOM OPERATOR this procedure are in the results section. TOTAL PROTEIN Now 07/08/2021 12:13 Results fo r PM COCOA ROOM OPERATOR this procedure are in the results section. ASPARTATE Now 07/08/2021 12:13 Results for AMINOTRANSFERASE PM COCOA ROOM OPERATOR this proced ure are in the results section. ALANINE Now 07/08/2021 12:13 Results for AMINOTRANSFERASE PM COCOA ROOM OPERATOR this proced ure are in the results section. ALKALINE PHOSPHATASE Now 07/08/2021 12:13 Res ults for PM COCOA ROOM OPERATOR this procedure are in the results section. ALBUMIN LEVEL Now 07/08/2021 12:13 Results fo r PM COCOA ROOM OPERATOR this procedure are in the results section. CALCIUM LEVEL TOTAL Now 07/08/2021 12:13 Resu lts for PM COCOA ROOM OPERATOR this procedure are in the results section. .GLOMERULAR FILTRATION Now 07/08/2021 12:13 R esults for RATE PM COCOA ROOM OPERATOR this procedure are in the results section. SERUM CREATININE Now 07/08/2021 12:13 Results for PM COCOA ROOM OPERATOR this procedure are in the results section. ELECTROLYTE PANEL Now 07/08/2021 12:13 Result s for PM COCOA ROOM OPERATOR this procedure are in the results section. BLOOD UREA NITROGEN Now 07/08/2021 12:13 Resu lts for PM COCOA ROOM OPERATOR this procedure are in the results section. GLUCOSE LEVEL Now 07/08/2021 12:13 Results fo r PM COCOA ROOM OPERATOR this procedure are in the results section. MANUAL DIFFERENTIAL STAT 07/08/2021 12:13 Resu lts for PM COCOA ROOM OPERATOR this procedure are in the results section. Results CBC STAT 07/08/2021 12:13 Results for PM COCOA ROOM OPERATOR this procedure are in the results section. CARDIAC PANEL Timed Study 07/08/2021 12:13 Results fo r PM COCOA ROOM OPERATOR this procedure are in the results section. D DIMER Now 07/08/2021 12:13 Results for PM [facility] ROOM OPERATOR this procedure are in the results section. APTT Now 07/08/2021 12:13 Results for PM [facility] ROOM OPERATOR this procedure are in the results section. PROTHROMBIN TIME Now 07/08/2021 12:13 Results for PM [facility] ROOM OPERATOR this procedure are in the results section. PHOSPHORUS LEVEL Now 07/08/2021 12:13 Results for PM [facility] ROOM OPERATOR this procedure are in the results section. MAGNESIUM LEVEL Now 07/08/2021 12:13 Results for PM [facility] ROOM OPERATOR this procedure are in the results section. COMPREHENSIVE METABOLIC Now 07/08/2021 12:13 PANEL PM [facility] ROOM OPERATOR COMPLETE BLOOD COUNT W/ Now 07/08/2021 12:13 DIFFERENTIAL PM [facility] ROOM OPERATOR XR CHEST 1 VW Routine 07/08/2021 11:38 Results fo r AM [facility] ROOM OPERATOR this procedure are in the results section. COVID-19 (SARS-COV-2) Now 07/08/2021 11:23 Re sults for ASYMPTOMATIC-LT AM [facility] ROOM OPERATOR this procedu re are in the results section. CT HEAD WO CONTRAST Routine 07/08/2021 11:05 Resu lts for AM [facility] ROOM OPERATOR this procedure are in the results section. POC GLUCOSE SCREEN Routine 07/08/2021 10:47 Resul ts for AM [facility] ROOM OPERATOR this procedure are in the results section. 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 Results CBC Routine 07/04/2021 11:10 Primary squamous Results for AM [employer] ROOM OPERATOR cell carcinoma of this proce dure larynx are in the results section. FRACTIONATED BILIRUBIN Routine 07/04/2021 11:10 Primary squamo us Results for AM [employer] ROOM OPERATOR cell carcinoma of this proce dure larynx are in the results section. TOTAL PROTEIN Routine 07/04/2021 11:10 Primary squamous Result s for AM [employer] ROOM OPERATOR cell carcinoma of this proce dure larynx are in the results section. ASPARTATE Routine 07/04/2021 11:10 Primary squamous Results for AMINOTRANSFERASE AM [facility] ROOM OPERATOR cell carcinoma of this p rocedure larynx are in the results section. ALANINE Routine 07/04/2021 11:10 Primary squamous Results for AMINOTRANSFERASE AM [employer] ROOM OPERATOR cell carcinoma of this p rocedure larynx are in the results section. ALKALINE PHOSPHATASE Routine 07/04/2021 11:10 Primary squamous Results for AM [employer] ROOM OPERATOR cell carcinoma of this proce dure larynx are in the results section. ALBUMIN LEVEL Routine 07/04/2021 11:10 Primary squamous Result s for AM [employer] ROOM OPERATOR cell carcinoma of this proce dure larynx are in the results section. CALCIUM LEVEL TOTAL Routine 07/04/2021 11:10 Primary squamous Results for AM [employer] ROOM OPERATOR cell carcinoma of this proce dure larynx are in the results section. .GLOMERULAR FILTRATION Routine 07/04/2021 11:10 Primary squamo us Results for RATE AM [facility] ROOM OPERATOR cell carcinoma of this proce dure larynx are in the results section. SERUM CREATININE Routine 07/04/2021 11:10 Primary squamous Res ults for AM [employer] ROOM OPERATOR cell carcinoma of this proce dure larynx are in the results section. ELECTROLYTE PANEL Routine 07/04/2021 11:10 Primary squamous Re sults for AM [employer] ROOM OPERATOR cell carcinoma of this proce dure larynx are in the results section. BLOOD UREA NITROGEN Routine 07/04/2021 11:10 Primary squamous Results for AM [employer] ROOM OPERATOR cell carcinoma of this proce dure larynx are in the results section. GLUCOSE LEVEL Routine 07/04/2021 11:10 Primary squamous Result s for AM [employer] ROOM OPERATOR cell carcinoma of this proce dure larynx are in the results section. PHOSPHORUS LEVEL Routine 07/04/2021 11:10 Primary squamous Res ults for AM [employer] ROOM OPERATOR cell carcinoma of this proce dure larynx are in the results section. MAGNESIUM LEVEL Routine 07/04/2021 11:10 Primary squamous Resu lts for AM [employer] ROOM OPERATOR cell carcinoma of this proce dure larynx are in the results section. COMPLETE BLOOD COUNT W/ Routine 07/04/2021 11:10 Primary squam ous DIFFERENTIAL AM [facility] ROOM OPERATOR cell carcinoma of larynx COMPREHENSIVE METABOLIC Routine 07/04/2021 11:10 Primary squam ous PANEL AM [facility] ROOM OPERATOR cell carcinoma of larynx MANUAL DIFFERENTIAL Routine 06/27/2021 8:00 Primary squamous Results for AM [employer] ROOM OPERATOR cell carcinoma of this proce dure larynx are in the results section. Results CBC Routine 06/27/2021 8:00 Primary squamous Results for AM [employer] ROOM OPERATOR cell carcinoma of this proce dure larynx are in the results section. FRACTIONATED BILIRUBIN Routine 06/27/2021 8:00 Primary squamo us Results for AM [employer] ROOM OPERATOR cell carcinoma of this proce dure larynx are in the results section. TOTAL PROTEIN Routine 06/27/2021 8:00 Primary squamous Result s for AM [employer] ROOM OPERATOR cell carcinoma of this proce dure larynx are in the results section. ASPARTATE Routine 06/27/2021 8:00 Primary squamous Results for AMINOTRANSFERASE AM [employer] ROOM OPERATOR cell carcinoma of this p rocedure larynx are in the results section. ALANINE Routine 06/27/2021 8:00 Primary squamous Results for AMINOTRANSFERASE AM [employer] ROOM OPERATOR cell carcinoma of this p rocedure larynx are in the results section. ALKALINE PHOSPHATASE Routine 06/27/2021 8:00 Primary squamous Results for AM [employer] ROOM OPERATOR cell carcinoma of this proce dure larynx are in the results section. ALBUMIN LEVEL Routine 06/27/2021 8:00 Primary squamous Result s for AM [employer] ROOM OPERATOR cell carcinoma of this proce dure larynx are in the results section. CALCIUM LEVEL TOTAL Routine 06/27/2021 8:00 Primary squamous Results for AM [employer] ROOM OPERATOR cell carcinoma of this proce dure larynx are in the results section. .GLOMERULAR FILTRATION Routine 06/27/2021 8:00 Primary squamo us Results for RATE AM [facility] ROOM OPERATOR cell carcinoma of this proce dure larynx are in the results section. SERUM CREATININE Routine 06/27/2021 8:00 Primary squamous Res ults for AM [employer] ROOM OPERATOR cell carcinoma of this proce dure larynx are in the results section. ELECTROLYTE PANEL Routine 06/27/2021 8:00 Primary squamous Re sults for AM [employer] ROOM OPERATOR cell carcinoma of this proce dure larynx are in the results section. BLOOD UREA NITROGEN Routine 06/27/2021 8:00 Primary squamous Results for AM [employer] ROOM OPERATOR cell carcinoma of this proce dure larynx are in the results section. GLUCOSE LEVEL Routine 06/27/2021 8:00 Primary squamous Result s for AM [employer] ROOM OPERATOR cell carcinoma of this proce dure larynx are in the results section. PHOSPHORUS LEVEL Routine 06/27/2021 8:00 Primary squamous Res ults for AM [employer] ROOM OPERATOR cell carcinoma of this proce dure larynx are in the results section. MAGNESIUM LEVEL Routine 06/27/2021 8:00 Primary squamous Resu lts for AM [employer] ROOM OPERATOR cell carcinoma of this proce dure larynx are in the results section. COMPLETE BLOOD COUNT W/ Routine 06/27/2021 8:00 Primary squam ous DIFFERENTIAL AM [employer] ROOM OPERATOR cell carcinoma of larynx COMPREHENSIVE METABOLIC Routine 06/27/2021 8:00 Primary squam ous PANEL AM [facility] ROOM OPERATOR cell carcinoma of larynx TROPONIN T STAT 06/22/2021 3:45 Results for PM [facility] ROOM OPERATOR this procedure are in the results section. FRACTIONATED BILIRUBIN Now 06/22/2021 11:54 R esults for AM [facility] ROOM OPERATOR this procedure are in the results section. TOTAL PROTEIN Now 06/22/2021 11:54 Results fo r AM [facility] ROOM OPERATOR this procedure are in the results section. ASPARTATE Now 06/22/2021 11:54 Results for AMINOTRANSFERASE AM [facility] ROOM OPERATOR this proced ure are in the results section. ALANINE Now 06/22/2021 11:54 Results for AMINOTRANSFERASE AM [facility] ROOM OPERATOR this proced ure are in the results section. ALKALINE PHOSPHATASE Now 06/22/2021 11:54 Res ults for AM [employer] ROOM OPERATOR this procedure are in the results section. ALBUMIN LEVEL Now 06/22/2021 11:54 Results fo r AM [facility] ROOM OPERATOR this procedure are in the results section. CALCIUM LEVEL TOTAL Now 06/22/2021 11:54 Resu lts for AM [employer] ROOM OPERATOR this procedure are in the results section. .GLOMERULAR FILTRATION Now 06/22/2021 11:54 R esults for RATE AM [facility] ROOM OPERATOR this procedure are in the results section. SERUM CREATININE Now 06/22/2021 11:54 Results for AM [facility] ROOM OPERATOR this procedure are in the results section. ELECTROLYTE PANEL Now 06/22/2021 11:54 Result s for AM [employer] ROOM OPERATOR this procedure are in the results section. BLOOD UREA NITROGEN Now 06/22/2021 11:54 Resu lts for AM [employer] ROOM OPERATOR this procedure are in the results section. GLUCOSE LEVEL Now 06/22/2021 11:54 Results fo r AM [facility] ROOM OPERATOR this procedure are in the results section. MANUAL DIFFERENTIAL STAT 06/22/2021 11:54 Resu lts for AM [employer] ROOM OPERATOR this procedure are in the results section. Results CBC STAT 06/22/2021 11:54 Results for AM [facility] ROOM OPERATOR this procedure are in the results section. CKMB Now 06/22/2021 11:54 Results for AM [facility] ROOM OPERATOR this procedure are in the results section. CREATINE KINASE Now 06/22/2021 11:54 Results for AM [facility] ROOM OPERATOR this procedure are in the results section. NT PRO BNP Now 06/22/2021 11:54 Results for AM [facility] ROOM OPERATOR this procedure are in the results section. PHOSPHORUS LEVEL Now 06/22/2021 11:54 Results for AM [facility] ROOM OPERATOR this procedure are in the results section. MAGNESIUM LEVEL Now 06/22/2021 11:54 Results for AM [facility] ROOM OPERATOR this procedure are in the results section. COMPREHENSIVE METABOLIC Now 06/22/2021 11:54 PANEL AM [facility] ROOM OPERATOR COMPLETE BLOOD COUNT W/ Now 06/22/2021 11:54 DIFFERENTIAL AM [facility] ROOM OPERATOR COVID-19 (SARS-COV-2) Now 06/22/2021 11:54 Re sults for ASYMPTOMATIC-LT AM [facility] ROOM OPERATOR this procedu re are in the results section. EKG, 12-LEAD (PORTABLE) Routine 06/22/2021 EKG, 12-LEAD (PORTABLE) STAT 06/22/2021 CT HEAD/NECK SIMULATION Routine 06/21/2021 9:00 Primary squam ous Results for WO CONTRAST (RO) AM [facility] ROOM OPERATOR cell carcinoma of this p rocedure larynx are in the results section. MANUAL DIFFERENTIAL Routine 06/20/2021 8:07 Primary squamous Results for AM [facility] ROOM OPERATOR cell carcinoma of this proce dure larynx are in the results section. Results CBC Routine 06/20/2021 8:07 Primary squamous Results for AM [employer] ROOM OPERATOR cell carcinoma of this proce dure larynx are in the results section. FRACTIONATED BILIRUBIN Routine 06/20/2021 8:07 Primary squamo us Results for AM [facility] ROOM OPERATOR cell carcinoma of this proce dure larynx are in the results section. TOTAL PROTEIN Routine 06/20/2021 8:07 Primary squamous Result s for AM [employer] ROOM OPERATOR cell carcinoma of this proce dure larynx are in the results section. ASPARTATE Routine 06/20/2021 8:07 Primary squamous Results for AMINOTRANSFERASE AM [facility] ROOM OPERATOR cell carcinoma of this p rocedure larynx are in the results section. ALANINE Routine 06/20/2021 8:07 Primary squamous Results for AMINOTRANSFERASE AM [facility] ROOM OPERATOR cell carcinoma of this p rocedure larynx are in the results section. ALKALINE PHOSPHATASE Routine 06/20/2021 8:07 Primary squamous Results for AM [employer] ROOM OPERATOR cell carcinoma of this proce dure larynx are in the results section. ALBUMIN LEVEL Routine 06/20/2021 8:07 Primary squamous Result s for AM [employer] ROOM OPERATOR cell carcinoma of this proce dure larynx are in the results section. CALCIUM LEVEL TOTAL Routine 06/20/2021 8:07 Primary squamous Results for AM [employer] ROOM OPERATOR cell carcinoma of this proce dure larynx are in the results section. .GLOMERULAR FILTRATION Routine 06/20/2021 8:07 Primary squamo us Results for RATE AM [facility] ROOM OPERATOR cell carcinoma of this proce dure larynx are in the results section. SERUM CREATININE Routine 06/20/2021 8:07 Primary squamous Res ults for AM [employer] ROOM OPERATOR cell carcinoma of this proce dure larynx are in the results section. ELECTROLYTE PANEL Routine 06/20/2021 8:07 Primary squamous Re sults for AM [employer] ROOM OPERATOR cell carcinoma of this proce dure larynx are in the results section. BLOOD UREA NITROGEN Routine 06/20/2021 8:07 Primary squamous Results for AM [employer] ROOM OPERATOR cell carcinoma of this proce dure larynx are in the results section. GLUCOSE LEVEL Routine 06/20/2021 8:07 Primary squamous Result s for AM [employer] ROOM OPERATOR cell carcinoma of this proce dure larynx are in the results section. PHOSPHORUS LEVEL Routine 06/20/2021 8:07 Primary squamous Res ults for AM [employer] ROOM OPERATOR cell carcinoma of this proce dure larynx are in the results section. MAGNESIUM LEVEL Routine 06/20/2021 8:07 Primary squamous Resu lts for AM [employer] ROOM OPERATOR cell carcinoma of this proce dure larynx are in the results section. COMPLETE BLOOD COUNT W/ Routine 06/20/2021 8:07 Primary squam ous DIFFERENTIAL AM [employer] ROOM OPERATOR cell carcinoma of larynx COMPREHENSIVE METABOLIC Routine 06/20/2021 8:07 Primary squam ous PANEL AM [facility] ROOM OPERATOR cell carcinoma of larynx MANUAL DIFFERENTIAL Routine 06/13/2021 7:00 Primary squamous Results for AM [employer] ROOM OPERATOR cell carcinoma of this proce dure larynx are in the results section. Results CBC Routine 06/13/2021 7:00 Primary squamous Results for AM [employer] ROOM OPERATOR cell carcinoma of this proce dure larynx are in the results section. FRACTIONATED BILIRUBIN Routine 06/13/2021 7:00 Primary squamo us Results for AM [facility] ROOM OPERATOR cell carcinoma of this proce dure larynx are in the results section. TOTAL PROTEIN Routine 06/13/2021 7:00 Primary squamous Result s for AM [employer] ROOM OPERATOR cell carcinoma of this proce dure larynx are in the results section. ASPARTATE Routine 06/13/2021 7:00 Primary squamous Results for AMINOTRANSFERASE AM [facility] ROOM OPERATOR cell carcinoma of this p rocedure larynx are in the results section. ALANINE Routine 06/13/2021 7:00 Primary squamous Results for AMINOTRANSFERASE AM [employer] ROOM OPERATOR cell carcinoma of this p rocedure larynx are in the results section. ALKALINE PHOSPHATASE Routine 06/13/2021 7:00 Primary squamous Results for AM [employer] ROOM OPERATOR cell carcinoma of this proce dure larynx are in the results section. ALBUMIN LEVEL Routine 06/13/2021 7:00 Primary squamous Result s for AM [employer] ROOM OPERATOR cell carcinoma of this proce dure larynx are in the results section. CALCIUM LEVEL TOTAL Routine 06/13/2021 7:00 Primary squamous Results for AM [employer] ROOM OPERATOR cell carcinoma of this proce dure larynx are in the results section. .GLOMERULAR FILTRATION Routine 06/13/2021 7:00 Primary squamo us Results for RATE AM [facility] ROOM OPERATOR cell carcinoma of this proce dure larynx are in the results section. SERUM CREATININE Routine 06/13/2021 7:00 Primary squamous Res ults for AM [employer] ROOM OPERATOR cell carcinoma of this proce dure larynx are in the results section. ELECTROLYTE PANEL Routine 06/13/2021 7:00 Primary squamous Re sults for AM [employer] ROOM OPERATOR cell carcinoma of this proce dure larynx are in the results section. BLOOD UREA NITROGEN Routine 06/13/2021 7:00 Primary squamous Results for AM [employer] ROOM OPERATOR cell carcinoma of this proce dure larynx are in the results section. GLUCOSE LEVEL Routine 06/13/2021 7:00 Primary squamous Result s for AM [employer] ROOM OPERATOR cell carcinoma of this proce dure larynx are in the results section. PHOSPHORUS LEVEL Routine 06/13/2021 7:00 Primary squamous Res ults for AM [employer] ROOM OPERATOR cell carcinoma of this proce dure larynx are in the results section. MAGNESIUM LEVEL Routine 06/13/2021 7:00 Primary squamous Resu lts for AM [employer] ROOM OPERATOR cell carcinoma of this proce dure larynx are in the results section. COMPLETE BLOOD COUNT W/ Routine 06/13/2021 7:00 Primary squam ous DIFFERENTIAL AM [employer] ROOM OPERATOR cell carcinoma of larynx COMPREHENSIVE METABOLIC Routine 06/13/2021 7:00 Primary squam ous PANEL AM [facility] ROOM OPERATOR cell carcinoma of larynx MANUAL DIFFERENTIAL Routine 06/06/2021 6:58 Primary squamous Results for AM [employer] ROOM OPERATOR cell carcinoma of this proce dure larynx are in the results section. Results CBC Routine 06/06/2021 6:58 Primary squamous Results for AM [employer] ROOM OPERATOR cell carcinoma of this proce dure larynx are in the results section. FRACTIONATED BILIRUBIN Routine 06/06/2021 6:58 Primary squamo us Results for AM [employer] ROOM OPERATOR cell carcinoma of this proce dure larynx are in the results section. TOTAL PROTEIN Routine 06/06/2021 6:58 Primary squamous Result s for AM [employer] ROOM OPERATOR cell carcinoma of this proce dure larynx are in the results section. ASPARTATE Routine 06/06/2021 6:58 Primary squamous Results for AMINOTRANSFERASE AM [employer] ROOM OPERATOR cell carcinoma of this p rocedure larynx are in the results section. ALANINE Routine 06/06/2021 6:58 Primary squamous Results for AMINOTRANSFERASE AM [employer] ROOM OPERATOR cell carcinoma of this p rocedure larynx are in the results section. ALKALINE PHOSPHATASE Routine 06/06/2021 6:58 Primary squamous Results for AM [employer] ROOM OPERATOR cell carcinoma of this proce dure larynx are in the results section. ALBUMIN LEVEL Routine 06/06/2021 6:58 Primary squamous Result s for AM [employer] ROOM OPERATOR cell carcinoma of this proce dure larynx are in the results section. CALCIUM LEVEL TOTAL Routine 06/06/2021 6:58 Primary squamous Results for AM [employer] ROOM OPERATOR cell carcinoma of this proce dure larynx are in the results section. .GLOMERULAR FILTRATION Routine 06/06/2021 6:58 Primary squamo us Results for RATE AM [employer] ROOM OPERATOR cell carcinoma of this proce dure larynx are in the results section. SERUM CREATININE Routine 06/06/2021 6:58 Primary squamous Res ults for AM [employer] ROOM OPERATOR cell carcinoma of this proce dure larynx are in the results section. ELECTROLYTE PANEL Routine 06/06/2021 6:58 Primary squamous Re sults for AM [employer] ROOM OPERATOR cell carcinoma of this proce dure larynx are in the results section. BLOOD UREA NITROGEN Routine 06/06/2021 6:58 Primary squamous Results for AM [employer] ROOM OPERATOR cell carcinoma of this proce dure larynx are in the results section. GLUCOSE LEVEL Routine 06/06/2021 6:58 Primary squamous Result s for AM [employer] ROOM OPERATOR cell carcinoma of this proce dure larynx are in the results section. PHOSPHORUS LEVEL Routine 06/06/2021 6:58 Primary squamous Res ults for AM [employer] ROOM OPERATOR cell carcinoma of this proce dure larynx are in the results section. MAGNESIUM LEVEL Routine 06/06/2021 6:58 Primary squamous Resu lts for AM [employer] ROOM OPERATOR cell carcinoma of this proce dure larynx are in the results section. COMPLETE BLOOD COUNT W/ Routine 06/06/2021 6:58 Primary squam ous DIFFERENTIAL AM [employer] ROOM OPERATOR cell carcinoma of larynx COMPREHENSIVE METABOLIC Routine 06/06/2021 6:58 Primary squam ous PANEL AM [facility] ROOM OPERATOR cell carcinoma of larynx MANUAL DIFFERENTIAL Routine 05/30/2021 8:28 Primary squamous Results for AM [employer] ROOM OPERATOR cell carcinoma of this proce dure larynx are in the results section. Results CBC Routine 05/30/2021 8:28 Primary squamous Results for AM [employer] ROOM OPERATOR cell carcinoma of this proce dure larynx are in the results section. FRACTIONATED BILIRUBIN Routine 05/30/2021 8:28 Primary squamo us Results for AM [employer] ROOM OPERATOR cell carcinoma of this proce dure larynx are in the results section. TOTAL PROTEIN Routine 05/30/2021 8:28 Primary squamous Result s for AM [employer] ROOM OPERATOR cell carcinoma of this proce dure larynx are in the results section. ASPARTATE Routine 05/30/2021 8:28 Primary squamous Results for AMINOTRANSFERASE AM [employer] ROOM OPERATOR cell carcinoma of this p rocedure larynx are in the results section. ALANINE Routine 05/30/2021 8:28 Primary squamous Results for AMINOTRANSFERASE AM [employer] ROOM OPERATOR cell carcinoma of this p rocedure larynx are in the results section. ALKALINE PHOSPHATASE Routine 05/30/2021 8:28 Primary squamous Results for AM [employer] ROOM OPERATOR cell carcinoma of this proce dure larynx are in the results section. ALBUMIN LEVEL Routine 05/30/2021 8:28 Primary squamous Result s for AM [employer] ROOM OPERATOR cell carcinoma of this proce dure larynx are in the results section. CALCIUM LEVEL TOTAL Routine 05/30/2021 8:28 Primary squamous Results for AM [employer] ROOM OPERATOR cell carcinoma of this proce dure larynx are in the results section. .GLOMERULAR FILTRATION Routine 05/30/2021 8:28 Primary squamo us Results for RATE AM [employer] ROOM OPERATOR cell carcinoma of this proce dure larynx are in the results section. SERUM CREATININE Routine 05/30/2021 8:28 Primary squamous Res ults for AM [employer] ROOM OPERATOR cell carcinoma of this proce dure larynx are in the results section. ELECTROLYTE PANEL Routine 05/30/2021 8:28 Primary squamous Re sults for AM [employer] ROOM OPERATOR cell carcinoma of this proce dure larynx are in the results section. BLOOD UREA NITROGEN Routine 05/30/2021 8:28 Primary squamous Results for AM [employer] ROOM OPERATOR cell carcinoma of this proce dure larynx are in the results section. GLUCOSE LEVEL Routine 05/30/2021 8:28 Primary squamous Result s for AM [employer] ROOM OPERATOR cell carcinoma of this proce dure larynx are in the results section. PHOSPHORUS LEVEL Routine 05/30/2021 8:28 Primary squamous Res ults for AM [employer] ROOM OPERATOR cell carcinoma of this proce dure larynx are in the results section. MAGNESIUM LEVEL Routine 05/30/2021 8:28 Primary squamous Resu lts for AM [employer] ROOM OPERATOR cell carcinoma of this proce dure larynx are in the results section. COMPLETE BLOOD COUNT W/ Routine 05/30/2021 8:28 Primary squam ous DIFFERENTIAL AM [employer] ROOM OPERATOR cell carcinoma of larynx COMPREHENSIVE METABOLIC Routine 05/30/2021 8:28 Primary squam ous PANEL AM [employer] ROOM OPERATOR cell carcinoma of larynx MANUAL DIFFERENTIAL Routine 05/23/2021 8:42 Primary squamous Results for AM [employer] ROOM OPERATOR cell carcinoma of this proce dure larynx are in the results section. Results CBC Routine 05/23/2021 8:42 Primary squamous Results for AM [employer] ROOM OPERATOR cell carcinoma of this proce dure larynx are in the results section. FRACTIONATED BILIRUBIN Routine 05/23/2021 8:42 Primary squamo us Results for AM [employer] ROOM OPERATOR cell carcinoma of this proce dure larynx are in the results section. TOTAL PROTEIN Routine 05/23/2021 8:42 Primary squamous Result s for AM [employer] ROOM OPERATOR cell carcinoma of this proce dure larynx are in the results section. ASPARTATE Routine 05/23/2021 8:42 Primary squamous Results for AMINOTRANSFERASE AM [employer] ROOM OPERATOR cell carcinoma of this p rocedure larynx are in the results section. ALANINE Routine 05/23/2021 8:42 Primary squamous Results for AMINOTRANSFERASE AM [employer] ROOM OPERATOR cell carcinoma of this p rocedure larynx are in the results section. ALKALINE PHOSPHATASE Routine 05/23/2021 8:42 Primary squamous Results for AM [employer] ROOM OPERATOR cell carcinoma of this proce dure larynx are in the results section. ALBUMIN LEVEL Routine 05/23/2021 8:42 Primary squamous Result s for AM [employer] ROOM OPERATOR cell carcinoma of this proce dure larynx are in the results section. CALCIUM LEVEL TOTAL Routine 05/23/2021 8:42 Primary squamous Results for AM [employer] ROOM OPERATOR cell carcinoma of this proce dure larynx are in the results section. .GLOMERULAR FILTRATION Routine 05/23/2021 8:42 Primary squamo us Results for RATE AM [employer] ROOM OPERATOR cell carcinoma of this proce dure larynx are in the results section. SERUM CREATININE Routine 05/23/2021 8:42 Primary squamous Res ults for AM [employer] ROOM OPERATOR cell carcinoma of this proce dure larynx are in the results section. 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 COMPLETE BLOOD COUNT W/ Routine 05/23/2021 8:42 Primary squam ous DIFFERENTIAL [employer] OPERATOR cell carcinoma of larynx COMPREHENSIVE METABOLIC Routine 05/23/2021 8:42 Primary squam ous PANEL AM [employer]OM OPERATOR cell carcinoma of larynx FL MODIFIED BARIUM Routine 05/18/2021 9:57 Primary squamous R esults for SWALLOW W SPEECH [employer] OPERATOR cell carcinoma of this p rocedure larynx are in the results section. CT HEAD/NECK SIMULATION Routine 05/11/2021 10:46 Primary squam ous Results for WO CONTRAST (RO) AM [employer] OPERATOR cell carcinoma of this p rocedure larynx are in the results section. COVID-19 Routine 05/11/2021 9:05 Encounter for Results fo r (SARS-COV-2) PCR AM [employer] OPERATOR observation for this pro cedure ASYMPTOMATIC other suspected are in the exposure to results biological agent section. ruled out ORTHOPANTOGRAM Routine 05/06/2021 10:53 Encounter for Results for AM [employer] ROOM OPERATOR observation for this procedu re other suspected are in the disease ruled out results section. 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 ASPARTATE Routine 05/04/2021 11:10 Primary squamous Results for AMINOTRANSFERASE AM [employer] ROOM OPERATOR cell carcinoma of this p rocedure larynx are in the results section. ALANINE Routine 05/04/2021 11:10 Primary squamous Results for AMINOTRANSFERASE AM [employer] ROOM OPERATOR cell carcinoma of this p rocedure larynx are in the results section. 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 VITAMIN D 25 HYDROXY Routine 05/04/2021 11:10 Primary squamous Results for LEVEL AM [employer] RO[employer] OPERATOR cell carcinoma of this proce dure larynx are in the results section. 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 COVID-19 Routine 05/04/2021 10:23 Suspected COVID-19 Resul ts for (SARS-COV-2) PCR AM [employer] ROOM OPERATOR this proced ure ASYMPTOMATIC are in the results section. TMP HCVAB INTERP Routine 05/03/2021 8:26 Results for AM [employer]OA ROOM OPERATOR this procedure are in the results section. FRACTIONATED BILIRUBIN Routine 05/03/2021 8:26 Primary squamo us Results for AM [employer]OCOA ROOM OPERATOR cell carcinoma of this proce dure larynx are in the results section. 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 ASPARTATE Routine 05/03/2021 8:26 Primary squamous Results for AMINOTRANSFERASE AM [employer] ROOM OPERATOR cell carcinoma of this p rocedure larynx are in the results section. ALANINE Routine 05/03/2021 8:26 Primary squamous Results for AMINOTRANSFERASE AM [employer] ROOM OPERATOR cell carcinoma of this p rocedure larynx are in the results section. ALKALINE PHOSPHATASE Routine 05/03/2021 8:26 Primary squamous Results for AM [employer]OA ROOM OPERATOR cell carcinoma of this proce dure larynx are in the results section. 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 CALCIUM LEVEL TOTAL Routine 05/03/2021 8:26 Primary squamous Results for AM [employer]OCOA ROOM OPERATOR cell carcinoma of this proce dure larynx are in the results section. 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 ELECTROLYTE PANEL Routine 05/03/2021 8:26 Primary squamous Re sults for AM [employer]OCOA ROOM OPERATOR cell carcinoma of this proce dure larynx are in the results section. 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 GLUCOSE LEVEL Routine 05/03/2021 8:26 Primary squamous Result s for AM [employer]OA ROOM OPERATOR cell carcinoma of this proce dure larynx are in the results section. MANUAL DIFFERENTIAL Routine 05/03/2021 8:26 Primary squamous Results for AM [employer]OA ROOM OPERATOR cell carcinoma of this proce dure larynx are in the results section. 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 FREE THYROXINE Routine 05/03/2021 8:26 Primary squamous Resul ts for AM [employer]OCOA ROOM OPERATOR cell carcinoma of this proce dure larynx are in the results section. 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 COMPREHENSIVE METABOLIC Routine 05/03/2021 8:26 Primary squam ous PANEL AM [employer]OA ROOM OPERATOR cell carcinoma of larynx COMPLETE BLOOD COUNT W/ Routine 05/03/2021 8:26 Primary squam ous DIFFERENTIAL AM [employer]OA ROOM OPERATOR cell carcinoma of larynx CT CHEST W CONTRAST Routine 05/03/2021 7:27 Primary squamous Results for AM COCOA ROOM OPERATOR cell carcinoma of this proce dure larynx are in the results section. 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 POC CREATININE Routine 05/03/2021 6:56 Results f or AM [employer] ROOM OPERATOR this procedure are in the results section. OSI PET CT SKULL TO MID Routine 04/07/2021 1:24 Cancer Results for THIGH PM CDT this procedure are in the results section. PATHOLOGY OUTSIDE Routine 03/28/2021 Results fo r INTERPRETATION this procedur e are in the results section. OSI CHEST Routine 03/24/2021 1:24 Cancer Results for PM CDT this procedure are in the results section. after 10/02/2020 Results Modified Barium Swallow w Speech (09/23/2021 10:46 AM CDT)Only the most recent of3 resultswithin the time period is included. Anatomical Region Laterality Modality Neck Radio Fluoroscopy Specimen Impressions [id number] - 09/23/2021 3:54 PM CDT 1. Silent aspiration with thin liquids w as reduced with strategies. Silent laryngeal penetration with thick liquids was reduced with strategies. 2. Moderate pharyngeal residue was reduc ed with strategies. Refer to speech pathology note for furth er details. Narrative [id number] - 09/23/2021 3:54 PM CDT FULL RESULT: [...] Organization Address City/State/ZIP Code Phon e Number [id number] CT Soft Tissue Neck with Contrast (09/20/2021 4:26 PM CDT)Only the most recent of2 resultswithin the time period is included. Anatomical Region Laterality Modality Neck Computed Tomography Specimen Impressions [id number] - 09/21/2021 7:52 AM CDT 1. Near complete resolution of previou sly present enhancement within the supraglottic larynx with interval development of enhancement within the aryepiglottic folds and hypopharynx as described above which may be reflective of radiation eff ects. Recommend correlation with direct inspection. 2. No evidence of new cervical adenopa thy to suggest herrera disease recurrence in the neck. Occasional tailor women's garment alteration errors may have occurred due to the inherent limitations of voice recognition software, and incorrect words/phrases may have been missed during proofreading. Please interpret using context where substitutions have occurred. Narrative [id number] - 09/21/2021 7:52 AM CDT FULL RESULT: [...] herrera disease recurrence in the neck. Occasional tailor women's garment alteration errors may have occurred due to the inherent limitations of voice recognition software, and incorrect words/phrases may have been missed during proofreading. Please interpret using context where substitutions have occurred. Performing Organization Address City/State/ZIP Code Phon e Number [id number] CT Chest with Contrast (09/20/2021 4:26 PM CDT)Only the most recent of2 results within the time period is included. Anatomical Region Laterality Modality Chest Computed Tomography Specimen Impressions [id number] - 09/21/2021 12:03 PM CDT New opacities in the lingula and left lower lobe concerning for aspiration and/or pneumonia. Clinical correlation follow-up to resolution is recommended. No definite sign of metastatic disease in the chest. Narrative [id number] - 09/21/2021 12:03 PM CDT FULL RESULT: [...] Organization Address City/State/ZIP Code Phon e Number [id number] .Serum Creatinine (09/20/2021 11:58 AM CDT)Only the most recent of28 results within the time period is included. Pathologist Sig nature Creatinine 0.98 0.67 - 1.17 mg/dL [facility] C ENTER Specimen Blood Narrative [facility] - 2 1:28 PM CDT Pls schedule videostrobe prior to MD eric ts Performing Organization Address City/State/ZIP Code Phon e Number [facility] Unless otherwise noted, [place] [address] CENTER all lab tests performed by: Division of Pathology and Laboratory Medicine [facility] [place] Glomerular Filtration Rate (09/20/2021 11:58 AM CDT)Only the most recent of28 resultswithin the time period is included. eGFR-AA 89 >=60 [facility] Comment: mL/min/1.73 [facility] Normal eGFR: >= 60 mL/min/1.73 m2 sq. m Note: The eGFR is calculated using the CKD-EPI equation. The eGFR declines with age. eGFR <60 mL/min/1.73 m2 is considered as "decreased". This equation should only be used for patients 18 and older. According to the National [facility]'s Kidney Disease Outcome Quality [...] 5 Kidney failure <15 eGFR-JOSELITO 77 >=60 [facility] Comment: mL/min/1.73 [facility] Normal eGFR: >= 60 mL/min/1.73 m2 sq. m Note: The eGFR is calculated using the CKD-EPI equation. The eGFR declines with age. eGFR <60 mL/min/1.73 m2 is considered as "decreased". This equation should only be used for patients 18 and older. According to the National [facility]'s Kidney Disease Outcome Quality Initiative (KDOQI) classification [...] 5 Kidney failure <15 Specimen Blood Narrative [facility] - 2 1:28 PM CDT Pls schedule videostrobe prior to MD eric ts Performing Organization Address City/[facility] Phon e Number [facility] Unless otherwise noted, [address] all lab tests performed by: Division of Pathology and Laboratory Medicine [address] (ABNORMAL) BUN (09/20/2021 11:58 AM CDT)Only the most recent of28 resultswithin the time period is included. Pathologist Sig nature BUN 35 (H) 6 - 23 mg/dL [facility] Specimen Blood Narrative [facility] - 2 1:28 PM CDT Pls schedule videostrobe prior to MD eric ts Performing Organization Address City/[facility] Phon e Number [facility] Unless otherwise noted, [address] all lab tests performed by: Division of Pathology and Laboratory Medicine [address] TSH (09/20/2021 11:58 AM CDT)Only the most recent of2 resultswithin the time period is included. Pathologist Sig nature TSH 3.11 0.27 - 4.20 mcunit/mL [facility] Specimen Blood Narrative [facility] - 2 1:28 PM CDT Pls schedule videostrobe prior to MD eric luis Performing Organization Address City/[facility]/ZIP [facility] Phon e Number [facility] Unless otherwise noted, [address] all lab tests performed by: Division of Pathology and Laboratory Medicine [address] [place] [address] Free T4 (09/20/2021 11:58 AM CDT)Only the most recent of2 resultswithin the time period is included. Pathologist [facility] nature T4 Free 1.40 0.93 - 1.70 ng/dL [facility]TER Specimen Blood Narrative [facility] - 2 1:28 PM CDT Pls schedule videostrobe prior to MD eric ts Performing Organization Address [facility] Phon e Number [facility] Unless otherwise noted, [address] all lab tests performed by: Division of Pathology and Laboratory Medicine [address] [place] [address] (ABNORMAL) POC Glucose Screen (08/31/2021 10:15 AM CDT)Only the most recent of40 resultswithin the time period is included. Pathologist [facility] POC Glucose 131 (H) 70 [...] Sample Type Capillary POC TELCOR [facility], [address] [place] [address], [place] [address]; Stunt Man: Loida Chavez MD Specimen Blood Performing Organization Address [facility] Phon e Number POC TELCOR (ABNORMAL) .CBC (08/31/2021 4:26 AM CDT)Only the most recent of21 resultswithin the time period is included. Pathologist [facility] WBC 4.4 4.0 - 11.0 [facility] RBC 3.03 (L) 4.50 - 6.00 [facility] M/uL [facility] Hgb 8.3 (L) 14.0 - 18.0 [facility] gm/dL [facility] Hct 26.8 (L) 40.0 - 54.0 % [facility] MCV 88 82 - 98 fL [facility] MCH 27.4 27.0 - 31.0 pg [facility] MCHC 31.0 31.0 - 36.0 [facility] gm/dL [facility] RDW-SD 46.0 35.1 - 46.3 fL [facility] RDW-CV 14.1 12.0 - 15.5 % [facility] Platelet count 236 140 - 440 K/uL [facility] MPV 10.0 4.0 - 10.4 fL [facility] INRBC 0.0 <=0.0 % [facility] Comment: [facility] The INRBC (instrument NRBC) value reflects the enumera tion of nucleated red blood cells contained in a 200uL samp le of whole blood analyzed by the instrument. This value may differ from the NRBC value reported in a manual differ ential, which is based on a 100 cell differential. Specimen Blood Performing Organization Address City/State/ZIP Code Phon e Number [facility] Unless otherwise noted, [place] [address] [place] all lab tests performed by: Division of Pathology and Laboratory Medicine [place] (ABNORMAL) Differential (08/31/2021 4:26 AM CDT)Only the most recent of21 resultswithin the time period is included. Neutrophil % 71.7 (H) 42.0 - 66.0 % [facility] Lymphocyte % 14.8 (L) 24.0 - 44.0 % [facility] Monocyte % 6.6 2.0 - 7.0 % [facility] Eosinophil % 5.7 (H) 1.0 - 4.0 % [facility] Basophil % 0.7 0.0 - 1.0 % [facility] IGRE % 0.5 (H)Comment: 0.0 - 0.4 % [facility] IGRE % count [facility] includes Metamyelocytes, Myelocytes, and Promyelocytes. Neutrophil Abs 3.16 1.70 - 7.30 [facility] Lymphocyte Abs 0.65 (L) 1.00 - 4.80 [facility] Monocyte Abs 0.29 0.08 - 0.70 [facility] Eosinophil Abs 0.25 0.04 - 0.40 [facility] Basophil Abs 0.03 0.00 - 0.10 [facility] IG Abs 0.02 0.00 - 0.04 [facility] Specimen Blood Performing Organization Address [facility] Phon e Number [facility] Unless otherwise noted, [address] all lab tests performed by: Division of Pathology and Laboratory Medicine [address] [place] Phosphorus Level (08/31/2021 4:26 AM CDT)Only the most recent of26 results within the time period is included. Pathologist Sig nature Phosphorus 3.0 2.5 - 4.5 mg/dL [facility] TER Specimen Blood Performing Organization Address [facility] Phon e Number [facility] Unless otherwise noted, [address] all lab tests performed by: Division of Pathology and Laboratory Medicine [address] [place] Magnesium Level (08/31/2021 4:26 AM CDT)Only the most recent of26 resultswithin the time period is included. Pathologist Sig nature Magnesium 1.8 1.6 - 2.6 mg/dL [facility] TER Specimen Blood Performing Organization Address [facility] Phon e Number [facility] Unless otherwise noted, [address] all lab tests performed by: Division of Pathology and Laboratory Medicine [address] (ABNORMAL) Glucose Level (08/31/2021 4:26 AM CDT)Only the most recent of26 resultswithin the time period is included. Glucose Level 136 (H) 70 - 99 mg/dL [facility] Comment: [facility] Effective 12/29/15, the gluco se reference intervals have been updated based on [place] [employer] guidelines (Standards of Medical Care in Diabetes 2016. Diabetes Care 2016; 39: S13-S22). Fasting blood glucose: Normal: 70-99 mg/dL Impaired fasting glucose (in creased risk for diabetes or pre-diabetes): 100- 125 mg/dL Diabetes mellitus: >/=126 mg/dL Random blood glucose: Normal: 70-199 mg/dL Note: Random glucose >100 mg/dL is assoc iated with increased risk for diabetes Specimen Blood Performing Organization Address City/[facility] Phon e Number [facility] Unless otherwise noted, [address] all lab tests performed by: Division of Pathology and Laboratory Medicine [address] [place] [address] Calcium Level (08/31/2021 4:26 AM CDT)Only the most recent of26 resultswithin the time period is included. Pathologist Sig nature Calcium Lvl 8.4 8.4 - 10.2 mg/dL [facility] NTER Specimen Blood Performing Organization Address [facility] Number [facility] Unless otherwise noted, [address] all lab tests performed by: Division of Pathology and Laboratory Medicine [address] [place] [address] (ABNORMAL) Electrolyte Panel (08/31/2021 4:26 AM CDT)Only the most recent of27 resultswithin the time period is included. Pathologist Sig nature Sodium Lvl 138 136 - 145 mEq/L [facility] Potassium Lvl 3.4 (L) 3.5 - 5.1 mEq/L [facility] Chloride 101 98 - 107 mEq/L [facility] CO2 26 22 - 29 mEq/L [facility] Anion Gap 11 4 - 14 mEq/L [facility] Specimen Blood Performing Organization Address [facility] Phon e Number [facility] Unless otherwise noted, [address] all lab tests performed by: Division of Pathology and Laboratory Medicine [address] [place] XR Abdomen 1 View Portable (08/29/2021 6:11 PM CDT) Anatomical Region Laterality Modality Abdomen Digital Radiography Specimen Impressions [id number] - 08/29/2021 7:19 PM CDT Dobbhoff tube follows the course of the duodenum, tip projecting near the duodenojejunal junction. Narrative [id number] - 08/29/2021 7:19 PM CDT FULL RESULT: [...] Organization Address City/State/ZIP Code Phon e Number [id number] Pathology Biopsy Interpretation (08/29/2021 2:14 PM CDT) Pathologist Sig nature Submitted Clinical Iron deficiency [facility] History anemia, not otherwise specified [D50.9] Diagnosis A: Duodenum, biopsy: [facility] Electro nically signed Duodenal mucosa [...] in D1. ET Disclaimer "Some tests reported [facility] here may have been developed and performance characteristics determined by [facility] Pathology and Laboratory Medicine. These tests have not been specifically cleared or approved by the U.S. Food and Drug Administration. If applicable, controls were reviewed and showed appropriate reactivity." Specimen Tissue - Duodenum Tissue - Stomach Tissue - Stomach Tissue - Colon Performing Organization Address City/[facility] Phon e Number [facility] [place] [address] [address] (ABNORMAL) Prothrombin Time with INR (08/29/2021 5:31 AM CDT)Only the most recent of3 resultswithin the time period is included. Pathologist Sig reji PT 14.9 (H) 11.5 - 13.9 [facility] INR 1.26 (H) 0.90 - 1.10 [facility] Specimen Blood Performing Organization Address [facility] Phon e Number [facility] Unless otherwise noted, [address] all lab tests performed by: [facility] Pathology and Laboratory [facility] Transfuse RBC:Transfusion Date: 08/25/2021 (08/26/2021 6:58 AM CDT)Only the most recent of2 resultswithin the time period is included.Confirm ABORh (08/25/2021 6:19 PM CDT) Pathologist Sig nature ABORh Confirm. O NEG [facility] ER Specimen Blood Performing Organization Address [facility] Phon e Number [facility] Unless otherwise noted, [address] all lab tests performed by: Division of Pathology and Laboratory Medicine [facility] [place] COVID-19 (SARS-CoV-2)Asymptomatic-LT (08/25/2021 6:15 PM CDT)Only the most recent of3 resultswithin the time period is included. COVID19 Not Detected Not Detected [facility] (SARS-CoV-2) [facility] COVID19 SARS Inpatient Admission [facility] Indication [facility] Covid 19 Comment See Note [facility] Comment: [facility] The rufino SARS-CoV-2 nucleic [...] fact sheet for patients provided by the service planner ([employer]) can be reviewed at: https://www.USConnect.gov/media/15 0277/download. A fact sheet for Health Care providers is provided by the service planner ([employer]) and can be reviewed at: https://www.fda.gov/media/712408/download Results must be interpreted within the context [...] and high-complexity tests. The Microbiology Laboratory at [facility], CLIA Accreditation # [id number] and CAP Accreditation #[id number], verified the performance characteristics of this assay. Internal controls are used to monitor all stages of the test process. Specimen Nasopharyngeal Swab Performing Organization Address City/[facility] Code Phon e Number [facility] Unless otherwise noted, [address] all lab tests performed by: Division of Pathology and Laboratory Medicine [address] [employer] Clot Expiration Date (08/25/2021 6:15 PM CDT) Pathologist Sig nature T & S Expiration 08/28/2021 [facility] Specimen Blood Performing Organization Address City/[facility] Phon e Number [facility] Unless otherwise noted, [address] all lab tests performed by: Division of Pathology and Laboratory Medicine [address] [employer] [place] Fractionated Bilirubin (08/25/2021 6:15 PM CDT)Only the most recent of12 resultswithin the time period is included. Pathologist [facility] Bili Total 0.4 <=1.2 mg/dL [facility] Comment: [facility] Indocyanine Green (ICG) may cause falsely elevated bilirubin results. Total and direct bilirubin must not be measured from samples containing indocyanine green. False elevation of total emmett irubin can be seen in patients with IgG concentrations above 28 g/L. Bili Direct 0.2Comment: <=0.3 mg/dL [facility] Indocyanine Green [facility] (ICG) may cause falsely elevated bilirubin results. Total and direct bilirubin must not be measured from samples containing indocyanine green. Bili Indirect 0.2 0.0 - 0.9 [facility] mg/dL [facility] Specimen Blood Performing Organization Address City/[facility] Phon e Number [facility] CANCER Unless otherwise noted, [address] all lab tests performed by: Division of Pathology and Laboratory Medicine [facility] [place] TMP Interpretation Antibody Screen Negative (08/25/2021 6:15 PM CDT) [facility] TMP Auto Neg ABSC At the present time, patien t plasma shows no evidence of RBC alloantibodies. [facility] Interp Comment: [facility] NICHOLE HUMPHREY MD - [id number] Dictated by: NICHOLE HUMPHREY MD - [id number] Dictated Date/Time: 08.27.19 8:43 AM CDT Transcribed Date/Time: 08.26.2021 8:43 AM CDT Electronically Signed By: MD Carri CAZARES [id number] on 08.26.2021 8:43 AM C Specimen Blood Performing Organization Address City/[facility] Phon e Number [facility] CANCER Unless otherwise noted, [address] all lab tests performed by: Division of Pathology and Laboratory Medicine [address] [place] [address] [place] TMP Interpretation Crossmatch (08/25/2021 6:15 PM CDT) TMP XM Interp RBC units crossmatched for transfusion appear ac ceptable. [facility] Comment: [facility] NICHOLE HUMPHREY MD - [id number] Dictated by: NICHOLE HUMPHREY MD - [id number] Dictated Date/Time: 08.27.19 8:43 AM CDT Transcribed Date/Time: 08.26.2021 8:43 AM CDT Electronically Signed By: MD Carri CAZARES [id number] on 08.26.2021 8:43 AM C Specimen Blood Performing Organization Address City/[facility]/ZIP Code Phon e Number [facility] Unless otherwise noted, [address] all lab tests performed by: Division of Pathology and Laboratory Medicine [address] aPTT (08/25/2021 6:15 PM CDT)Only the most recent of2 resultswithin the time period is included. Pathologist Sig reji aPTT 32.7 24.7 - 36.8 second(s) [facility] Specimen Blood Performing Organization Address City/[facility]/ZIP Code Phon e Number [facility] CANCER Unless otherwise noted, [address] all lab tests performed by: Division of Pathology and Laboratory Medicine [address] ABORh (08/25/2021 6:15 PM CDT) Pathologist Sig nature ABORh. O NEG [facility] Specimen Blood Performing Organization Address City/[facility]/ZIP Code Phon e Number [facility] CANCER Unless otherwise noted, [address] all lab tests performed by: Division of Pathology and Laboratory Medicine [address] Antibody Screen (08/25/2021 6:15 PM CDT) Pathologist Sig nature ABSC. Negative ABSC [facility] CENTE R Specimen Blood Performing Organization Address City/[facility]/ZIP Code Phon e Number [facility] Unless otherwise noted, [address] all lab tests performed by: Division of Pathology and Laboratory Medicine [address] [place] ALT (08/25/2021 6:15 PM CDT)Only the most recent of12 resultswithin the time period is included. Pathologist Sig nature ALT 29 <=41 U/L [facility] Specimen Blood Performing Organization Address City/[facility] Phon e Number [facility] Unless otherwise noted, [address] all lab tests performed by: Division of Pathology and Laboratory Medicine [address] [place] Aspartate Aminotransferase (08/25/2021 6:15 PM CDT)Only the most recent of12 resultswithin the time period is included. Pathologist Sig nature AST 32 <=40 U/L [facility] Specimen Blood Performing Organization Address [facility] Phon e [facility] Unless otherwise noted, [address] all lab tests performed by: Division of Pathology and Laboratory Medicine [address] [place] Total Protein (08/25/2021 6:15 PM CDT)Only the most recent of12 resultswithin the time period is included. Pathologist Sig nature Total Protein 7.2 6.4 - 8.3 g/dL [facility] TER Specimen Blood Performing Organization Address [facility] e [facility] Unless otherwise noted, [address] all lab tests performed by: Division of Pathology and Laboratory Medicine [address] [place] Alkaline Phosphatase (08/25/2021 6:15 PM CDT)Only the most recent of12 results within the time period is included. Pathologist Sig nature Alk Phos 64 40 - 129 U/L [facility] Specimen Blood Performing Organization Address [facility] Phon e Number [facility] Unless otherwise noted, [address] all lab tests performed by: Division of Pathology and Laboratory Medicine [address] [place] Albumin Level (08/25/2021 6:15 PM CDT)Only the most recent of12 resultswithin the time period is included. Pathologist Sig nature Albumin Lvl 3.7 3.5 - 5.2 gm/dL [facility] [address] Specimen Blood Performing Organization Address City/State/ZIP Code Phon e Number [facility] Unless otherwise noted, [address] all lab tests performed by: Division of Pathology and Laboratory Medicine [address] [place] [address] [place] RBC Product Ready for Two Needle Machine Operator (08/25/2021 4:47 PM CDT) Pathologist [facility] PRBC Product Ready B2 Blood [facility] for Two Needle Machine Operator BankComment: [facility] Product is ready for poultry picker on August 25, 2021 22:21:56 CDT. Specimen Blood Performing Organization Address City/State/ZIP Code Phon e Number [facility] CANCER Unless otherwise noted, [address] all lab tests performed by: Division of Pathology and Laboratory Medicine [address] [place] [address] Prepare RBC:accc, 2 Units (08/25/2021 4:47 PM CDT) Pathologist [facility] PRBC Product Ready 2Comment: Red Blood [facility] Cells Available - [facility] Order Form 03 when ready for product issue. Unit Number [id number] [facility] Product Code [id number] [facility] Unit Expiration [facility] Unit Blood Type 9500 [facility] Product Code Text RBCIRLR CPD AS1 [facility] 500mL [facility] Crossmatch [facility] Expiration Date [facility] Unit Irradiated IRRADIATED [facility] CENTER Dispense Status ISSUED [facility] Unit Blood Type O Negative [facility] Product Two Needle Machine Operator .BPAMComment: [facility] Location [facility] Unit Number [id number] [facility] Product Code [id number] [facility] Unit Expiration [facility] Unit Blood Type 9500 [facility] Product Code Text RBCIRLR CPD AS1 [facility] 500mL [facility] Crossmatch [facility] Expiration Date [facility] Unit Irradiated IRRADIATED [facility] Dispense Status ISSUED [facility] [place] Unit Blood Type O Negative [facility] Product Two Needle Machine Operator .BPAMComment: [place] [facility] Specimen Blood Performing Organization Address City/State/ZIP Code Phon e Number [facility] [facility] Unless otherwise noted, [place] [address] CENTER all lab tests performed by: Division of Pathology and Laboratory Medicine [address] [facility] X-ray Chest 2 Views (08/25/2021 11:17 AM CDT) Anatomical Region Laterality Modality Chest Digital Radiography Specimen Impressions [id number] - 08/25/2021 11:31 AM CDT There are mild opacities over the dorsal costophrenic recess on the lateral view that may represent either aspiration or pneumonia. Narrative [id number] - 08/25/2021 11:31 AM CDT FULL RESULT: [...] Organization Address City/State/ZIP Code Phon e Number [id number] Flexible nasopharyngeal laryngoscopy (08/22/2021 10:38 AM CDT) Rebecca Mark CCC-SLP - 10:38 AM CDT JAMIE Camarena 08/22/2021 4:05 PM Flexible nasopharyngeal laryngoscopy Date/Time: 08/22/2021 10:38 AM Provider Information: Performed by: SUKHDEEP Camarena Authorized by: OUMAR [employer] Drop Board Man present?: no Indications: Indications: videostroboscopy Pre-Procedure Note: clerical support specialist: no Pre-procedure patient condition: coher ent Procedure [...] fact sheet for patients provided by the service planner ( [employer]) can be reviewed at: https://www.fda.gov/media/43 3994/download. A fact sheet for Health Care providers is provided by the service planner ([employer]) and can be reviewed at: https://www.fda.gov/media/306623/download Results must be interpreted within the context [...] were verified by the Microbiology Laboratory at [facility], CLIA Accreditation #: [id number] and CAP Accreditation #: [id number]. COVID19 SARS AIRCRAFT DETAIL DRAFTSPERSON Swab [facility] COVID19 SARS Pre-Out of OR [facility] Indication Procedure [facility] Specimen Nasopharyngeal Swab Performing Organization Address City/State/ZIP Code Phon e Number [facility] CANCER Unless otherwise noted, [place] [address] CENTER all lab tests performed by: Division of Pathology and Laboratory Medicine [facility] [place] Echocardiogram 2D Complete (07/11/2021 4:16 PM COCOA ROOM OPERATOR) Specimen Narrative ISCV - 07/11/2021 4:19 PM COCOA ROOM OPERATOR Echocardiographic Report Interpretation Summary A complete two-dimensional [...] ( sept): 17.1 62 Performing Organization Address City/[facility]/ZIP Code Phon e Number ISCV EKG, 12-Lead (07/11/2021)Only the most recent of5 resultswithin the time period is included. Specimen Narrative This result has an attachment that is no t available. Performing Organization Address [facility] Code Phon e Number GASPER IECG (ABNORMAL) Troponin T (In-House) (07/10/2021 6:09 AM COCOA ROOM OPERATOR)Only the most recent of4 resultswithin the time period is included. Pathologist Sig [facility] Troponin T 37 (H) <=18 ng/L [facility] Comment: [facility] < 19 ng/L Suggest [...] low results. Specimen Blood Performing Organization Address [facility] Code Phon e Number [facility] CANCER Unless otherwise noted, [place] [address] [place] all lab tests performed by: Division of Pathology and Laboratory Medicine [address] (ABNORMAL) Calcium Ionized, Venous (07/09/2021 10:35 PM COCOA ROOM OPERATOR) Pathologist Sig nature V Ion Ca 0.96 (L) 1.15 - 1.29 mmol/L [facility] Specimen Blood Performing Organization Address City/State/ZIP Code Phon e Number [facility] CANCER Unless otherwise noted, [address] all lab tests performed by: Division of Pathology and Laboratory Medicine [address] [place] [address] (ABNORMAL) Lower Respiratory Culture w/Gram Stain (07/09/2021 5:33 PM COCOA ROOM OPERATOR) Final Report Normal site shayna present. [facility] Generally of low significance. [facility] Correlate with clinical data and culture history. (A) Path Review The results have been review ed and electronically signed by Pathologist: [facility] BERTA BRADY MD #[id number] [facility]ENTE R (A) Gram Stain Report Moderate WBC's seen [facility] Epithelial cells seen [facility] Moderate Gram Positive Cocci Moderate Gram Variable Madan (A) Specimen Sputum Induced Performing Organization Address City/[facility]/ZIP Code Phon e Number [facility] Unless otherwise noted, [address] all lab tests performed by: Division of Pathology and Laboratory Medicine [address] [place] [address] Vascular Access Ultrasound- VAP RN Device (07/09/2021 3:00 PM COCOA ROOM OPERATOR) Anatomical Region Laterality Modality Vascular Ultrasound Specimen Narrative Systemgenerated, Documentation - 022 3:00 PM COCOA ROOM OPERATOR This procedure requires no interpretatio n from the radiologist. Legionella Urine Antigen Path Review (07/08/2021 5:17 PM COCOA ROOM OPERATOR) Legionella Urine Negative for L. pneumophila serogroup 1 antigen, suggesting no recent or current infection. However, infection due to other serogroups and species of Legionella are not detected by this assay. In additi [facility] Antigen Path on, antigen may not be present in the urine in [facility] Review infection and the level of antigen present in the urine may be below the detection limit of the test. ... Reviewed and Electronically signed by Pathologist: Amaury Sinha MD, PhD #[id number] Comment: AMAURY SINHA MD, PhD - [id number] Dictated by: AMAURY SINHA MD, PhD - [id number] Dictated Date/Time: 07.11.19 1:11 AM COCOA ROOM OPERATOR Transcribed Date/Time: 07.11.2021 1:11 AM COCOA ROOM OPERATOR Electronically Signed By: ANIYAH SINHA MD, PhD - [id number] on 07.11.2021 1:11 AM C Specimen Urine Performing Organization Address City/[facility] Phon e Number [facility] CANCER Unless otherwise noted, [address] all lab tests performed by: Division of Pathology and Laboratory Medicine [address] [place] [address] [place] Streptococcal Urine Antigen Path Review (07/08/2021 5:17 PM COCOA ROOM OPERATOR) Streptococcal Urine Presumptive negative for S. pneumoniae antigen in urine, suggesting no current or recent pneumococcal infection. Infection due to S. pneumoniae cannot be ruled out since the level of antigen present in [facility] Antigen Path Review the urine may be below the detection limit o f the [facility] test. ... Reviewed and Electronically signed by Pathologist: Amaury Sinha MD, PhD #[id number] Comment: AMAURY SINHA MD, PhD - [id number] Dictated by: AMAURY SINHA MD, PhD - [id number] Dictated Date/Time: 07.11.19 1:11 AM COCOA ROOM OPERATOR Transcribed Date/Time: 07.11.2021 1:11 AM COCOA ROOM OPERATOR Electronically Signed By: ANIYAH SINHA MD, PhD - [id number] on 07.11.2021 1:11 AM C Specimen Urine Performing Organization Address City/[facility] Phon e Number [facility] CANCER Unless otherwise noted, [address] all lab tests performed by: Division of Pathology and Laboratory Medicine [address] [place] [address] [place] Streptococcus pneumoniae Urine Antigen (07/08/2021 5:17 PM COCOA ROOM OPERATOR) Streptococcal Urine Presumptive negative for S. pneumoniae antigen in the urine, suggesting no current or recent pneumococcal infection. However, infection due to S. pneumoniae cannot be completely ruled out since the leve [facility] Antigen Interpretation l of antigen present in the urine may be below the [facility] detection limit of the test. Streptococcal Urine Negative [facility] Antigen Interpretation [facility] Specimen Urine Performing Organization Address City/[facility]/ZIP Code Phon e Number [facility]ER Unless otherwise noted, [address] all lab tests performed by: Division of Pathology and Laboratory Medicine [address] [place] [address] Legionella Urine Antigen (07/08/2021 5:17 PM COCOA ROOM OPERATOR) Legionella Urine Negative for L. pneumophila serogroup 1 antigen, suggesting no recent or current infection. However, infections due to other serogroups and species of Legionella are not detected by this assay. In addition, antigen may not be present in the urine in [facility] Antigen Interpretation early infection and the leve l of antigen present in the urine may be below the detection limit of the test. CANCER C ENTER Legionella Urine Negative [facility] Antigen Interpretation [facility] Specimen Urine Performing Organization Address [facility] Phon e Number [facility] CANCER Unless otherwise noted, [address] all lab tests performed by: Division of Pathology and Laboratory Medicine [address] [place] [address] General Laboratory Add-On Test (07/08/2021 3:35 PM COCOA ROOM OPERATOR) Pathologist Sig nature Ordered Test Added [facility] Test Needed Procalcitonin [facility] Specimen Existing Performing Organization Address City/[facility] Phon e Number [facility]CER Unless otherwise noted, [address] all lab tests performed by: Division of Pathology and Laboratory Medicine [address] [place] [address] MRSA Screening Culture (07/08/2021 3:23 PM COCOA ROOM OPERATOR) Final Report No Methicillin resistant [facility] Staphylococcus aureus [facility] isolated. Path Review Culture yield may be affecte d by sample quality, prior treatment, and transportation conditions. [facility] ... [facility] The results have been reviewed and electronically sign ed by Pathologist: Amaury Sinha MD, PhD #[id number] Specimen Nasal Performing Organization Address City/[facility]/ZIP [facility] Phon e Number [facility] CANCER Unless otherwise noted, [address] all lab tests performed by: Division of Pathology and Laboratory Medicine [address] [place] [address] CT Chest Pulmonary Embolism with Contrast (07/08/2021 1:38 PM COCOA ROOM OPERATOR) Anatomical Region Laterality Modality Chest Computed Tomography Specimen Impressions [id number] - 07/08/2021 2:09 PM COCOA ROOM OPERATOR There are no pulmonary emboli. There are new findings in the left lower lobe raising the possibility of aspiration/pneumonia. Narrative [id number] - 07/08/2021 2:09 PM COCOA ROOM OPERATOR FULL RESULT: Examination: CT CHEST PULMONARY EMBOLISM [...] the possibility of aspiration/pneumonia. Performing Organization Address [facility] Code Phon e Number [id number] XR Abdomen AP (07/08/2021 1:31 PM COCOA ROOM OPERATOR) Anatomical Region Laterality Modality Abdomen Digital Radiography Specimen Impressions [id number] - 07/08/2021 1:34 PM COCOA ROOM OPERATOR Feeding tube tip overlying the gastric f undus. Recommend further advancement. Narrative [id number] - 07/08/2021 1:34 PM COCOA ROOM OPERATOR FULL RESULT: Examination: XR ABDOMEN AP on [...] undus. Recommend further advancement. Performing Organization Address [facility] Phon e Number [id number] (ABNORMAL) POC Chem 8 without Hemoglobin and Hematocrit (07/08/2021 12:14 PM COCOA ROOM OPERATOR) POC NA 131 (L) 138 - 146 [...] 18 and older. According to the National [facility]'s Kidney Disease Outcome Quality [...] 18 and older. According to the National [facility]'s Kidney Disease Outcome Quality [...] Clean Dev Yes POC TELCOR Performing Lab [facility] POC TEL[facility], [address] [place] [id number]; Stunt Man: Loida Chavez MD Specimen Blood Performing Organization Address City/[facility]/ZIP Code Phon e Number POC TELCOR POC Critical (07/08/2021 12:14 PM COCOA ROOM OPERATOR) Pathologist Sig nature POC Critical Comment See NoteComment: POC TELCOR Test performer notified Ordering Licensed Provider and /or designee of POC Potassium critical Results. Specimen Blood Performing Organization Address [facility] Phon e Number POC TELCOR (ABNORMAL) Procalcitonin (07/08/2021 12:13 PM COCOA ROOM OPERATOR) Procalcitonin 0.15 (H) <=0.08 ng/mL [facility] Comment: [facility] Procalcitonin > 2.00 ng/mL: [...] with extended dilution as it exceeds the service planner's recommended limit. Caution should be exercised when interpreting such values and done in conjunction with clinical context. Specimen Blood Performing Organization Address [facility] Phon e Number [facility] CANCER Unless otherwise noted, [address] all lab tests performed by: Division of Pathology and Laboratory Medicine [facility] [place] (ABNORMAL) Cardiac Panel (07/08/2021 12:13 PM COCOA ROOM OPERATOR) CK 112 39 - 308 U/L [facility] CK MB 2.4 <=10.4 ng/mL [facility] Troponin T 36 (H) <=18 ng/L [facility] Comment: [facility] < 19 ng/L Suggest [...] low results. Specimen Blood Performing Organization Address [facility] Phon e Number [facility] CANCER Unless otherwise noted, [address] all lab tests performed by: Division of Pathology and Laboratory Medicine [address] (ABNORMAL) D Dimer (07/08/2021 12:13 PM COCOA ROOM OPERATOR) D-Dimer 0.77 (H) 0.10 - 0.50 [facility] Comment: mcg/ml FEU CANCER SPEONK Rechecked and Verified The cut off value for exclusion of venous thromboembol ism is <0.51 mcg/mL FEUs (fibrinogen equivalent units). Specimen Blood Performing Organization Address [facility] Phon e Number [facility] CANCER Unless otherwise noted, [address] all lab tests performed by: Division of Pathology and Laboratory Medicine [address] [facility] X-ray Chest 1 View (07/08/2021 11:38 AM COCOA ROOM OPERATOR) Anatomical Region Laterality Modality Chest Digital Radiography Specimen Impressions [id number] - 07/08/2021 11:41 AM COCOA ROOM OPERATOR No acute infiltrates are visualized. Narrative [id number] - 07/08/2021 11:41 AM COCOA ROOM OPERATOR FULL RESULT: Examination: XR CHEST 1 VW, [...] Organization Address City/State/ZIP Code Phon e Number [id number] CT Head without Contrast (07/08/2021 11:05 AM COCOA ROOM OPERATOR) Anatomical Region Laterality Modality Head Computed Tomography Specimen Impressions [id number] - 07/08/2021 11:37 AM COCOA ROOM OPERATOR No acute intracranial abnormality. Narrative [id number] - 07/08/2021 11:37 AM COCOA ROOM OPERATOR FULL RESULT: EXAMINATION: CT HEAD WO CONTRAST [...] Organization Address City/State/ZIP Code Phon e Number [id number] (ABNORMAL) NT-Pro BNP (In-House) (06/22/2021 11:54 AM COCOA ROOM OPERATOR) Pathologist Sig [facility] NT ProBNP 1,199 (H) <=125 pg/mL [facility] Specimen Blood Performing Organization Address City/State/ZIP Code Phon e Number [facility] CANCER Unless otherwise noted, [address] all lab tests performed by: Division of Pathology and Laboratory Medicine [address] [place] CKMB (06/22/2021 11:54 AM COCOA ROOM OPERATOR) Pathologist Sig [facility] CK MB 2.6 <=10.4 ng/mL [facility] Specimen Blood Performing Organization Address City/State/ZIP Code Phon e Number [facility] CANCER Unless otherwise noted, [address] all lab tests performed by: Division of Pathology and Laboratory Medicine [address] [place] Creatine Kinase (06/22/2021 11:54 AM COCOA ROOM OPERATOR) Pathologist Sig nature CK 84 39 - 308 U/L [facility] Specimen Blood Performing Organization Address City/State/ZIP Code Phon e Number [facility] CANCER Unless otherwise noted, [place] [address] CENTER all lab tests performed by: Division of Pathology and Laboratory Medicine [address] [facility] [address] Head/Neck Simulation without Contrast (06/21/2021 9:00 AM COC[facility] ROOM OPERATOR)Only the most recent of2 resultswithin the time period is included. Anatomical Region Laterality Modality Head, Neck Computed Tomography Specimen Narrative Systemgenerated, Documentation - 022 9:00 AM COCOA ROOM OPERATOR This procedure requires no interpretatio n from the radiologist. COVID-19 (MAURA-CoV-2) PCR Asymptomatic (05/11/2021 9:05 AM COCOA ROOM OPERATOR)Only the most recent of2 resultswithin the time period is included. COVID19 SARS Pre-Out of OR [facility] Indication Procedure CANCER CENTER COVID19 SARS Result Not Detected Not Detected [facility] COVID19 SARS SARS-CoV-2 NOT Detected. [facility] Interpretation CANCER CENTER Reference Range: Not Detected Methodology: The [employer]ane[employer] Real Time SARS-CoV-2 assay is a qualitative real-time reverse tailor women's garment alteration polymerase chain reaction (process lead-PCR) test to detect RNA from SARS-CoV-2 in nasal, nasopharyngeal and oropharyngeal swabs from patients with signs and symptoms of infection who ar e suspected of COVID-19 by their health care provider. The [employer] RealTime SARS-CoV-2 performed on the iRise000 System is a dual target assay with [...] high- complexity Molecular Diagnostics Laboratory (MDL) at [facility] under the Food and Drug Administration (FDA) s Emergency Use Authorization. Factsheet for patients: https://www.[facility].org/Abb ottFactSheetPatients Factsheet for healthcare pro viders: https://www.[facility].org/AbbottFactSheetHCP Test performed by: The [facility] [address] [place] [address] Specimen Nasopharyngeal Swab Performing Organization Address City/[facility] Phon e Number [facility] CANCER Unless otherwise noted, [place] [address] CENTER all lab tests performed by: Division of Pathology and Laboratory Medicine [address] [place] Orthopantogram (05/06/2021 10:53 AM COCOA ROOM OPERATOR) Anatomical Region Laterality Modality Other Specimen Narrative Systemgenerated, Documentation - 021 10:53 AM COCOA ROOM OPERATOR This procedure requires no interpretatio n from the radiologist. HR ASSISTANT Videostroboscopy (05/06/2021 9:58 AM COCOA ROOM OPERATOR) Narrative OLYMPUS - 05/06/2021 9:58 AM COCOA ROOM OPERATOR Sara Harris, PhD 05/06/2021 10:12 AM HR ASSISTANT Videostroboscopy Laterality (if applicable): right Date/Time: 05/06/2021 9:58 AM Provider Information: Performed by: Sara Harris, PhD Authorized by: OUMAR Staples Indication: Indications for procedure: abnormal symp paulo Abnormal symptom: dysphonia Anesthesia: Local anesthesia used?: local anesthesia used Anesthesia: topical application Local anesthetic: lidocaine spray Sedation: Patient sedated?: patient not sedated Performing Organization Address City/State/[facility] Phon e Number OLYMPUS Glucose, Random (05/04/2021 11:10 AM COCOA ROOM OPERATOR) Glucose Random 136 70 - 199 mg/dL [facility] Comment: CANCER CENTER Effective 12/29/15, the gluco se reference intervals have been updated based on [place] Diabetes [employer] guidelines (Standards of Medical Care in Diabetes 2016. Diabetes Care 2016; 39: S13-S22). Fasting blood glucose: Normal: 70-99 mg/dL Impaired fasting glucose (in creased risk for diabetes or pre-diabetes): 100- 125 mg/dL Diabetes mellitus: >/=126 mg/dL Random blood glucose: Normal: 70-199 mg/dL Note: Random glucose >100 mg/dL is assoc iated with increased risk for diabetes Specimen Blood Narrative [facility] CANCER SPEONK - 12:55 PM COCOA ROOM OPERATOR Not fasting Performing Organization Address City/[facility] Phon e Number [facility] CANCER Unless otherwise noted, [address] all lab tests performed by: Division of Pathology and Laboratory Medicine [address] [place] [address] Vitamin D 25OH (05/04/2021 11:10 AM COCOA ROOM OPERATOR) Pathologist [facility] Vitamin D 25 OH 42 30 - 100 ng/mL [facility] Comment: CANCER CENTER Reference Range: Deficiency: <10 ng/mL Insufficiency: 10-29 ng/mL Sufficiency: 30-100 ng/mL Potential toxicity: >100 ng/mL Specimen Blood Performing Organization Address [facility] Phon e Number [facility] Unless otherwise noted, [address] all lab tests performed by: Division of Pathology and Laboratory Medicine [address] [place] [address] [place] TMP HCV Ab Path Interp (05/03/2021 8:26 AM COCOA ROOM OPERATOR) Pathologist [facility] HCV Ab Path There is NO serologic evidence of Hepatitis C vi autumn antibody. [facility] DON[facility] Interp Comment: CENTER RUFINO FERNANDEZ, Dictated by: RUFINO FERNANDEZ, Dictated Date/Time: 05.04.20 6:33 AM COC[facility] ROOM OPERATOR Transcribed Date/Time: 05.04.2021 6:33 AM COCOA ROOM OPERATOR Electronically Signed By: RUFINO FERNANDEZ, on 1 07.05.2020 6:33 AM C Specimen Blood Performing Organization Address City/[facility] Phon e Number [facility] [address] [place] [address] Hepatitis C Virus Ab (05/03/2021 8:26 AM COCOA ROOM OPERATOR) Pathologist [facility] HCVAb. Non Reactive Non Reactive [facility] Comment: CENTER Antibody detection in the im munocompromised and immunosuppressed population may be delayed or absent entirely. Therefore serial testing, correlation with other clinical findings, and supplemental testin g (if available) should be taken into consideration when interpreting the results. Performed at: [facility] [address] [place] [address] Specimen Blood Performing Organization Address City/State/ZIP Code Betsy Maradiaga [facility] [address] [place] [address] POC Creatinine (05/03/2021 6:56 AM COCOA ROOM OPERATOR) POC Crea 1.2 0.6 - 1.3 POC [...] 18 and older. According to the National [facility]'s Kidney Disease Outcome Quality [...] 18 and older. According to the National [facility]'s Kidney Disease Outcome Quality [...] OP CTRComment: POC [facility] Radiology OP CTR [facility], [address] [place] [id number]; Point of Care Stunt Man: Brooke Owens MD Specimen Blood Performing Organization Address City/State/ZIP Code Phon e Number POC [facility] OSI PET CT Skull to Mid Thigh (04/07/2021 1:24 PM CDT) Anatomical Region Laterality Modality Head Other Specimen Narrative Systemgenerated, Documentation - 1:24 PM COCOA ROOM OPERATOR Study acquired at another institution. For comparison only. No MD Licea originated interpretation requested or a vailable. Pathology Outside Interpretation (03/28/2021) Pathologist Sig nature Materials Received Accession#, Stained, Block, Unstained Collect ed Received [facility] Nirmal. [id number], 6 SS, 0 BLOCKS, 0 USS 03/28/2021 021 Addendum 1 Additional material received on 05/25/2021, Outside 0 SS, 3 BLOCK, 0 USS, collected on 03/28/2021. MD [facility] Addendum electronically signed Deeper levels of block (21:[id number]) were examined. The original diagnosis remains unchanged. by Rigo Pritchard MD on 06/13/2021 at 2 :17 PM Diagnosis Outside ([id number], 6 SS): [facility] E lectronically signed by Rigo Gallardo Larynx, right arytenoid, biopsy (A): MD Macho on SQUAMOUS CELL CARCINOMA, suspicious for invasion 04/21/2021 at 4:09 PM Larynx, left arytenoid, biopsy (B): Squamous mucosa with chronic inflammation, negative fo r tumor Larynx, left false vocal cord, biopsy (C): Squamous mucosa and minor salivary gland, negative for tumor [facility] Cemetery Warden(s) Dr. Marisela Hollingsworth [facility] has reviewed part A and concurs. Biomarker Block(s) T: A [facility] N: C Disclaimer "Some tests reported [facility] here may have been developed and performance characteristics determined by [facility] Pathology and Laboratory Medicine. These tests have not been specifically cleared or approved by the U.S. Food and Drug Administration. If applicable, controls were reviewed and showed appropriate reactivity." Specimen Tissue Performing Organization Address City/State/ZIP Code Phon e Number [facility] [place] [address] [address] [place] OSI Chest (03/24/2021 1:24 PM CDT) Anatomical Region Laterality Modality Chest Other Specimen Narrative Systemgenerated, Documentation - 021 1:24 PM COCOA ROOM OPERATOR Study acquired at another institution. For comparison only. No [facility] originated interpretation requested or a vailable. after 10/02/2020 Insurance Payer Benefit Plan Subscriber ID Effective Phone Address Typ e / Group Dates MEDICARE MEDICARE PART [id number] 2014-Prese [phone] [facility] Medicare A AND B nt 82 SOLUTIONS [address] [place] [address] [employer] OF [id number] 2015-Prese [id number] [facility] EVGENY PEPPER [place] [id number] [phone] (Work) Roland Lam Personal/Family Self [address] (Home) [place] [address] Advance Directives Code Status Date Activated Date Inactivated Comments Full Code 08/26/2021 7:24 PM 08/31/2021 6:23 PM Full Code 08/25/2021 9:45 PM 08/26/2021 7:24 PM Full Code 07/08/2021 4:32 PM 07/12/2021 11:02 PM Care Teams Manager Of Security Relationship Specialty Start Date End Date JaredOlivia PCP - External Otolaryngology 04/13/21 [address] [place], [place] [address] Slava Canseco, PCP - General Radiation Oncology 04/25/[address] [place] [phone] Yumi Desir MD Consulting Physician Head and Neck Medical 05/13/[address] [place] [address] [place] [address] Ene Polk MD Consulting Physician Head and Neck Surgery 05/13/[address] [place] [id number] Camilla Davenport, Clinical Dietitian Nutrition 07/19/[address] [place] [address] Anca Maurer, Nurse Practitioner Head and Neck Medical 08/15/21 MAINTENANCE WORKER Oncology [address] [place] [phone] Michael Lam, Consulting Physician Gastroenterology, 09/05/21 Hepatology and Nutrition [address] [place] [address] Brady Payan, Consulting Physician Gastroenterology, 09/07/21 Hepatology and Nutrition [address] [place] [phone]
--- OUTSIDE RECORDS SUMMARY | 2021-10-02 02:47 | XMS REPORT | Continuity of Care Document ---
:[address] [facility] t Address [address] [place] [address] Care Team Providers Name Role Phone [phone] Primary Care Physician Unavailable SYSTEM, NOT IN Attending Clinician Unavailable Arnaldo Bullard Attending Clinician Unavailable ZANDRA Attending Clinician Unavailable ALOK ARIZA Attending Clinician Unavailable Alok Ariza MD Attending Clinician Sarbjit BOWEN Attending Clinician Fermin Attending Clinician Jam CRAWLEY M Attending Clinician Samantha POLK Attending Clinician Unavailable Jordan CCC-GOVERNOR ASSEMBLER HYDRAULIC Attending Clinician Ethel BOWEN, A Attending Clinician Ruben RAYA Attending Clinician Unavailable Ruben Raya MD Attending Clinician Loy MENDEZ, S Attending Clinician Unavailable Eunice OSEGUERA Attending Clinician EUNICE Attending Clinician Unavailable Kerline Arrington Attending Clinician Gloria BOWENS, M Attending Clinician Alta Latif Attending Clinician Clemons, H Attending Clinician Unavailable Andres CCC-GOVERNOR ASSEMBLER HYDRAULIC, H Attending Clinician Cathleen CCC-GOVERNOR ASSEMBLER HYDRAULIC, L Attending Clinician Unavailable Erasto BETH, H Attending Clinician Dejan BOWENS, Elza Attending Clinician Unavailable Duran Pardo MD Attending Clinician Elza Ferrell MD Attending Clinician Nirmal Rain MD. Attending Clinician Wendi CRAWLEY Attending Clinician Rajendra Brooks MD Attending Clinician Rachid CRAWLEY Attending Clinician Sienna CRAWLEY Attending Clinician SIENNA Attending Clinician Unavailable Miguel Lam MD. Attending Clinician Callum CCC-GOVERNOR ASSEMBLER HYDRAULIC, M Attending Clinician Unavailable Jenny Deras MD Attending Clinician Delbert MATHUR Attending Clinician Pb TORO Attending Clinician Unavailable Harman BARRIGA Attending Clinician Miguel PEREZ Attending Clinician Unavailable Carina CCC-GOVERNOR ASSEMBLER HYDRAULIC Attending Clinician Miguel Buck Attending Clinician Stephanie CCC-GOVERNOR ASSEMBLER HYDRAULIC, M Attending Clinician Unavailable Miguel Reyes RN. Attending Clinician Unavailable Piero CRAWLEY Attending Clinician GERDA Attending Clinician Unavailable Gerda CRAWLEY Attending Clinician WENDI Attending Clinician Unavailable Christina CRAWLEY Attending Clinician Maryse Knight MD Attending Clinician Zandra CRAWLEY Attending Clinician Leobardo BOWENS Attending Clinician Leela BOWENS, S Attending Clinician Unavailable Nancy RD, K Attending Clinician Kp BOWENS, Thomas Rivera Attending Clinician Unavailable Yajaira BOWENS Attending Clinician Unavailable Marisela Bonilla MD Attending Clinician Francisco RN, C Attending Clinician Unavailable PADMINI Attending Clinician Unavailable JEREL Attending Clinician Unavailable Jerel CRAWLEY Attending Clinician Katie BOWENS, B Attending Clinician Unavailable Savannah Polk PharmD Attending Clinician Kathy CCC-GOVERNOR ASSEMBLER HYDRAULIC, E Attending Clinician Katty BOWENS, N Attending Clinician Unavailable Melvina CRAWLEY, Skinny Attending Clinician SHAGUFTA PRUITT Attending Clinician Unavailable Edmond CRAWLEY, Shagufta Attending Clinician Maine CRAWLYE Attending Clinician MAINE Attending Clinician Unavailable JANAE Attending Clinician Unavailable Galo BOWENS Attending Clinician Unavailable Jacob BOWENS, J Attending Clinician Unavailable Patrick CRAWLEY, Dulce Attending Clinician Song CCC-GOVERNOR ASSEMBLER HYDRAULIC, H Attending Clinician Unavailable Melita OSEGUERA Attending [...] Expiration Date Skinny sanchez MEDICARE PART A [id number] 2014 AND B 00:00:00 SPARKLE [id number] 2015 00:00:00 Problems Condition Condition Condition Status [...] Not [facility] Reaction Available Dian [facility] Family History [...] -acetaminop 3-13 mucositis tablets by Anderso hen ([place]) 00:00: due to mouth n 5 mg-325 [...] twice n 1.1 % 00 daily. dental [place] cream teeth with cream and spit out [...] a [facility] - 00:00: meal [facility] 00 [facility] ent [facility] Montelukast Montelukast Yes Na Bullard [address] [facility] Sodium Sodium 4-21 [facility] - 00:00: [facility] 00 [facility] ent [facility] ferrous 0 Yes MD sulfate 3-15 Anderso (iron) 325 00:00: n mg (65 mg 00 elemental iron per tablet) tablet aspirin 81 2009-06 Yes 81mg Take 81 mg M D mg EC 1-22 by mouth. Anderso tablet 00:00: n 00 Nevaeh Herring Yes Na Bullard [address] [facility] ent [facility]ics Metoprolol Metoprolol Yes Na Bullard [address] [facility] Tartrate Tartrate with food Myah kes - [facility] ent Clinics Dexilant Dexilant Yes Na Bullard TAKE ONE [facility] (1) [facility] - CAPSULE(S) Memoria BY MOUTH l ONCE A Outpati DAY. ent Clinics Plavix Plavix Yes Na Bullard [address] [facility] Plavix Plavix Yes Na Bullard [address] [facility] Ventolin Ventolin Yes Na Bullard [address] [facility] HFA HFA needed [facility] Nicotine Nicotine Yes Na Bullard [address] [facility] Step 1 Step 1 skin [facility] Cetirizine Cetirizine Yes Na Bullard [address] [facility] HCl HCl [facility] Cetirizine Cetirizine Yes Na Bullard TAKE ONE [facility] HCl HCl (1) [facility] - TABLET(S) Memoria BY MOUTH l ONCE A Outpati DAY. ent Clinics Simvastatin Simvastatin Yes Na Bullard [address] [facility] [address] in the [facility] - evening [facility] ent [facility] Nystatin Nystatin Yes Na Bullard [address] [facility] Fenofibrate Fenofibrate Yes Na Bullard [address] with food [facility] Symbicort Symbicort Yes Na Bullard [address] [facility] Flonase Flonase Yes Na Bullard [address] [facility] each [facility] - nostril [facility] ent [facility] Immunizations Ordered Immunization Filled Immunization [...] W 2021-09-20 21:26:19 Alexandra Dawson MD [facility] CONTRAST CT CHEST W CONTRAST 2021-09-20 21:26:19 Alexandra Dawson MD BLOOD UREA NITROGEN 2021-09-20 16:58:00 Alexandra Dawson MD [facility] SERUM CREATININE 2021-09-20 16:58:00 Alexandra [...] MD Arthur rson ELECTROLYTE PANEL 2021-08-30 09:36:00 Leida Frank MD on SERUM CREATININE 2021-08-30 09:36:00 Leida Frank MD Andadele patel .GLOMERULAR FILTRATION RATE 2021-08-30 09:36:00 Leida Frank MD CALCIUM LEVEL TOTAL 2021-08-30 09:36:00 Leida Frank MD Arthur rson Results CBC 2021-08-30 09:36:00 Leida Frank MD MANUAL DIFFERENTIAL 2021-08-30 09:36:00 Leida Frank MD Arthur rson POC GLUCOSE SCREEN 2021-08-30 [...] SCREEN 2021-08-29 15:21:00 Davis Rush MD on CALCIUM LEVEL TOTAL 2021-08-29 10:31:00 Leida Frank MD Arthur rson Results CBC 2021-08-29 10:31:00 Leida Frank MD MANUAL DIFFERENTIAL 2021-08-29 10:31:00 Leida Frank MD Arthur rson BASIC METABOLIC PANEL, 2021-08-29 10:31:00 Leida Frank MD nderson CALCIUM TOTAL MAGNESIUM LEVEL 2021-08-29 10:31:00 Leida Frank MD PHOSPHORUS LEVEL 2021-08-29 10:31:00 Thoppil, Leida patel COMPLETE BLOOD COUNT W/ 2021-08-29 10:31:00 ThopLeida waddell MD DIFFERENTIAL PROTHROMBIN TIME 2021-08-29 10:31:00 Robert Rashid MD GLUCOSE LEVEL 2021-08-29 10:31:00 ThoppilLeida MD BLOOD UREA NITROGEN 2021-08-29 10:31:00 Thoppil, Leida Hargrove MD Arthur rson ELECTROLYTE PANEL 2021-08-29 10:31:00 ThoppilLeida MD on SERUM CREATININE 2021-08-29 10:31:00 Hildaoppil, Leida patel .GLOMERULAR FILTRATION RATE 2021-08-29 10:31:00 ThoppilLeida MD POC GLUCOSE SCREEN 2021-08-29 02:15:00 Robert Rashid MD on POC GLUCOSE SCREEN 2021-08-28 21:24:00 Robert Rasihd MD on POC GLUCOSE SCREEN 2021-08-28 13:49:00 Robert Rashid MD on BASIC METABOLIC PANEL, 2021-08-28 08:13:00 ThoppilLeida MDrsdeya CALCIUM TOTAL MAGNESIUM LEVEL 2021-08-28 08:13:00 ThoppilLeida MD PHOSPHORUS LEVEL 2021-08-28 08:13:00 ThoppilLeida MD COMPLETE BLOOD COUNT W/ 2021-08-28 08:13:00 ThoppiLeida cole MD DIFFERENTIAL GLUCOSE LEVEL 2021-08-28 08:13:00 ThoppiLeida cole MD BLOOD UREA NITROGEN 2021-08-28 08:13:00 HildaoppiLeida cole MD Arthur rson ELECTROLYTE PANEL 2021-08-28 08:13:00 ThoppiLeida cole MD on SERUM CREATININE 2021-08-28 08:13:00 ThoppiLeida cole MD Andadele patel .GLOMERULAR FILTRATION RATE 2021-08-28 [...] CALCIUM TOTAL MAGNESIUM LEVEL 2021-07-11 08:00:00 Kwaku oY MD Arthur rson PHOSPHORUS LEVEL 2021-07-11 08:00:00 Kwaku Yo MD And erson GLUCOSE LEVEL 2021-07-11 08:00:00 MD Chucky De Paz on Ino BLOOD UREA NITROGEN 2021-07-11 08:00:00 MD Yue De Paz Nio ELECTROLYTE PANEL 2021-07-11 08:00:00 MD Zandra Arthur [...] SCREEN 2021-07-10 17:40:00 MD Zandra And naz Nio COMPLETE BLOOD COUNT W/ 2021-07-10 12:09:00 Madelin [...] Paz ELECTROLYTE PANEL 2021-07-09 19:45:00 MD Zandra Atrhur rson Ino SERUM CREATININE 2021-07-09 19:45:00 MD Zandra Jorge son Ino .GLOMERULAR FILTRATION RATE 2021-07-09 19:45:00 MD Jose E Mart CALCIUM LEVEL TOTAL 2021-07-09 19:45:00 MD Yue De Paz OSCILLATORY PEP 2021-07-09 19:21:45 MD Zandra Chucky on Ino POC GLUCOSE SCREEN 2021-07-09 18:42:00 MD Zandra And erson Ino POC GLUCOSE SCREEN 2021-07-09 14:56:00 MD Zandra And erson Ino TROPONIN T 2021-07-09 12:28:00 Kauhsal Proctor MD Andadele patel BASIC METABOLIC PANEL, [...] MD ELECTROLYTE PANEL 2021-07-08 18:13:00 [facility] Rain [facility] SERUM [facility]ATININE 2021-07-08 18:13:00 Koffi, Olegario Gamez [...] MANUAL DIFFERENTIAL 2021-06-20 14:07:00 [facility] Lorenz [facility] COMPREHENSIVE METABOLIC PANEL 2021-06-13 13:00:00 Yumi Lorenz MD COMPLETE BLOOD COUNT W/ 2021-06-13 13:00:00 Yumi Lorenz MDrson DIFFERENTIAL MAGNESIUM LEVEL 2021-06-13 13:00:00 Yumi Lorenz MD PHOSPHORUS LEVEL 2021-06-13 13:00:00 Yumi Lorenz MD GLUCOSE LEVEL 2021-06-13 13:00:00 Yumi Lorenz MD BLOOD UREA NITROGEN 2021-06-13 13:00:00 Yumi Lorenz MD [facility] ELECTROLYTE PANEL 2021-06-13 13:00:00 Yumi Lorenz MD amanda SERUM CREATININE 2021-06-13 13:00:00 Yumi Lorenz MD .GLOMERULAR FILTRATION RATE 2021-06-13 13:00:00 Yumi Lorenz MD CALCIUM LEVEL TOTAL 2021-06-13 13:00:00 Yumi Lorenz MD [facility] ALBUMIN LEVEL 2021-06-13 13:00:00 Yumi Lorenz MD ALKALINE PHOSPHATASE 2021-06-13 13:00:00 Yumi Lorenz MD rsdeya ALANINE AMINOTRANSFERASE 2021-06-13 13:00:00 Yumi Lorenz MD ASPARTATE AMINOTRANSFERASE 2021-06-13 13:00:00 Yumi Lorenz TOTAL PROTEIN 2021-06-13 13:00:00 Yumi Lorenz MD FRACTIONATED BILIRUBIN 2021-06-13 13:00:00 Yumi Lorenz MD derson Results CBC 2021-06-13 13:00:00 Yumi Lorenz MD MANUAL DIFFERENTIAL 2021-06-13 13:00:00 Yumi Lorenz MD [facility] COMPREHENSIVE METABOLIC PANEL 2021-06-06 12:58:00 Yumi Lorenz MD COMPLETE BLOOD COUNT W/ 2021-06-06 12:58:00 Yumi Lorenz MD DIFFERENTIAL MAGNESIUM LEVEL 2021-06-06 12:58:00 Yumi Lorenz MD PHOSPHORUS LEVEL 2021-06-06 12:58:00 Yumi Lorenz MD GLUCOSE LEVEL 2021-06-06 12:58:00 Yumi Lorenz MD BLOOD UREA NITROGEN 2021-06-06 12:58:00 Yumi Lorenz MD [facility] ELECTROLYTE PANEL 2021-06-06 12:58:00 Yumi Lorenz MD [...] (RO) COVID-19 (SARS-COV-2) PCR 2021-05-11 15:05:00 Alexandra aDwson MD ASYMPTOMATIC ORTHOPANTOGRAM 2021-05-06 16:53:13 Dixie Loaiza MD Fierro [employer]OR [employer]SEMBLER HYDRAULIC 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 2021-05-06 15:58:10 Alexandra Dawson MD ELECTROLYTE [...] MANUAL DIFFERENTIAL 2021-05-03 14:26:00 [facility] GLU[facility]SE L[facility] 2021-05-03 14:26:00 Alexandra Dawson MD BLOOD UREA NITROGEN 2021-05-03 14:26:00 Alexandra [facility] ELECTROLYTE PANEL 2021-05-03 14:26:00 Alexandra Dawson MDo amanda SERUM CREATININE 2021-05-03 14:26:00 Alexandra Dawson MD .GLOMERULAR FILTRATION RATE 2021-05-03 14:26:00 Alexandra Dawson MD CALCIUM LEVEL TOTAL 2021-05-03 14:26:00 Alexandra Dawson MD [facility] ALBUMIN LEVEL 2021-05-03 14:26:00 Alexandra Dawson MD [...] CONTRAST 2021-05-03 13:27:54 Alexandra Dawson MD Jorge [facility] POC CREATININE 2021-05-03 12:56:00 Alexandra Dawson MD [...] Clinicians Facility Department ID 2021-09-21 Outpatient SYSTEM, MDA [facility] [id number] 11:18:24 PROVIDER Chucky patel 2021-09-20 Outpatient Bullard, Na STLMLC STLMLC [id number] [facility] 09:33:02 [id number] [facility] 2021-09-19 Outpatient Bullard, Na STLMLC STLMLC [id number] [facility] 16:18:04 [id number] [facility] 2021-07-09 Inpatient EL ETCHEGARAY- MDA MDA [id number] 15:00:36 Jeanmarie ASKEW 2021-06-29 Outpatient Bullard, Na STLMLC STLMLC [id number] 11:54:04 [id number] [facility] 2021-06-29 Outpatient Bullard, Na STLMLC STLMLC [id number] 11:30:38 [id number] [facility] 2021-06-29 Outpatient Bullard, Na STLMLC STLMLC [id number] 11:28:27 [id number] [facility] 2021-06-29 Outpatient Bullard, Na STLMLC STLMLC [id number] 11:24:06 [id number] [facility] 2021-04-13 Outpatient SYSTEM, MDA MDA [id number] 19:44:15 PROVIDER Chucky patel 2021-09-30 2021-09-30 ambulatory STLMLC STLMLC [id number] [facility] 2021-09-29 2021-09-29 ambulatory STLMLC STLMLC [id number] [facility] 2021-09-28 2021-09-28 Outpatient DARYL LAU MDA MDA [id number] 15:18:06 15:18:15 Chucky o amanda 2021-09-23 2021-09-23 Outpatient DOROTHY POLK, MDA MDA [id number] 11:00:00 23:59:00 ENE Locke o amanda 2021-09-23 2021-09-23 Outpatient DOROTHY POLK, MDA MDA [id number] 10:00:00 10:59:00 ENE patel 2021-09-22 2021-09-22 ambulatory STLMLC STLMLC [id number] [facility]00 [facility] ent Clinics 2021-09-21 2021-09-21 Outpatient DARYL LAU MDA MDA [id number] 12:58:44 23:59:00 Chucky patel 2021-09-21 2021-09-21 Outpatient NKECHI ROGERS MDA MDA [id number] 14:34:29 16:07:25 Chucky patel 2021-09-20 2021-09-20 Outpatient DARYL LAU MDA MDA [id number] 13:05:31 23:59:00 Chucky patel 2021-09-20 2021-09-20 Outpatient DOROTHY DAWSON, MDA MDA [id number] 12:55:00 13:04:00 ALEXANDRA patel 2021-09-20 2021-09-20 Outpatient DARYL LAU MDA MDA [id number] 11:00:00 12:01:00 Chucky patel 2021-09-20 2021-09-20 Outpatient DOROTHY DAWSON, MDA MDA [id number] 10:45:00 10:59:00 ALEXANDRA patel 2021-09-19 2021-09-19 ambulatory STLMLC STLMLC [id number] [facility] 2021-09-07 2021-09-07 Outpatient DARYL LAU MDA MDA [id number] 14:30:45 14:30:45 Chucky o amanda 2021-09-07 2021-09-07 Outpatient DARYL LAU MDA MDA [id number] 12:16:23 12:16:23 Chucky o amanda 2021-09-06 2021-09-06 Outpatient DOROTHY DAWSON MDA MDA [id number] 14:15:00 23:59:00 ALEXANDRA Locke o amanda 2021-09-06 2021-09-06 ambulatory STLMLC STLMLC [id number] [facility]00 [facility] Clin[facility] 2021-09-05 2021-09-05 Outpatient DARYL LAU MDA MDA [id number] 10:24:00 10:24:00 Chucky o amanda 2021-08-25 2021-08-31 Inpatient [facility], MDA Hosp Med [id number] 17:50:00 16:18:00 DAVIS Chucky o n 2021-08-31 2021-08-31 Inpatient DARYL LAU MDA MDA [id number] 14:19:25 14:19:27 Chucky o n 2021-08-29 2021-08-29 Inpatient DARYL LAU MDA MDA [id number] 10:07:53 10:07:55 Chucky o amanda 2021-08-26 2021-08-26 Outpatient DOROTHY TORO, MDA MDA [id number] 00:20:55 00:34:46 SUSAN Locke o amanda 2021-08-25 2021-08-25 Outpatient DOROTHY PEREZ, MDA MDA [id number] 12:28:34 12:35:55 DAVINA Patel so amanda 2021-08-25 2021-08-25 Outpatient DARYL LAU MDA MDA [id number] 10:54:44 10:54:44 Chucky o amanda 2021-08-22 2021-08-22 Outpatient DOROTHY DAWSON, MDA MDA [id number] 09:00:00 23:59:00 ALEXANDRA Locke o amanda 2021-08-20 2021-08-20 Outpatient DOROTHY DAWSON MDA MDA [id number] 14:40:16 14:50:18 ALEXANDRA patel 2021-08-17 2021-08-17 Outpatient DARYL LAU MDA MDA [id number] 13:23:18 13:23:18 Chucky patel 2021-08-02 2021-08-02 Outpatient DARYL LAU MDA MDA [id number] 09:02:07 09:02:07 Chucky o amanda 2021-07-19 2021-07-19 Outpatient DARYL LAU MDA MDA [id number] 15:33:56 15:33:56 Chucky patel 2021-07-19 2021-07-19 ambulatory STLMLC STLMLC [id number] [facility] 2021-07-18 2021-07-18 Outpatient DARYL LAU MDA MDA [id number] 15:31:07 15:31:07 Chucky o amanda 2021-07-13 2021-07-13 Outpatient DOROTHY LORENZ MDA MDA [id number] 13:44:18 13:44:18 YUMI patel 2021-07-08 2021-07-12 Inpatient UR WENDI, MDA Hosp Med [id number] 10:33:00 21:00:00 LACY patel 2021-07-09 2021-07-09 Inpatient DOROTHY HOBBS- MDA MDA [id number] 14:37:39 15:13:17 Chucky ASKEW 2021-07-08 2021-07-08 Outpatient DARYL LAU MDA MDA [id number] 09:19:33 10:32:00 Chucky patel 2021-07-08 2021-07-08 Outpatient DARYL LAU MDA MDA [id number] 08:15:00 09:18:00 Chucky patel 2021-07-07 2021-07-07 Outpatient DARYL LAU MDA MDA [id number] 20:19:41 23:59:00 Chucky o amanda 2021-07-07 2021-07-07 Outpatient DARYL LAU MDA MDA [id number] MD 10:00:00 20:18:00 Chucky o amanda 2021-07-07 2021-07-07 Outpatient DARYL LAU MDA MDA [id number] MD 09:45:00 09:59:00 Chucky o amanda 2021-07-06 2021-07-06 Outpatient DARYL LAU MDA MDA [id number] MD 11:21:54 23:59:00 Chucky o amanda 2021-07-06 2021-07-06 Outpatient DARYL LAU MDA MDA [id number] MD 13:41:27 22:23:25 Chucky o amanda 2021-07-06 2021-07-06 Outpatient DOROTHY DAWSON MDA MDA [id number] MD 15:25:17 15:25:17 ALEXANDRA patel 2021-07-06 2021-07-06 Outpatient DARYL LAU MDA MDA [id number] 13:22:42 14:24:35 Chucky o amanda 2021-07-06 2021-07-06 Outpatient DARYL LAU MDA MDA [id number] 09:27:40 11:20:00 Chucky o amanda 2021-07-06 2021-07-06 Outpatient DARYL LAU MDA MDA [id number] MD 08:45:00 09:26:00 Chucky o amanda 2021-07-05 2021-07-05 Outpatient DARYL LAU MDA MDA [id number] 09:07:24 23:59:00 Chucky o amanda 2021-07-04 2021-07-04 Outpatient DOROTHY LORENZ, MDA MDA [id number] MD 12:15:00 23:59:00 YUMI patel 2021-07-04 2021-07-04 Outpatient DARYL LAU MDA MDA [id number] MD 09:23:55 12:14:00 Chucky o amanda 2021-07-04 2021-07-04 Outpatient DOROTHY LORENZ MDA MDA [id number] MD 09:15:00 09:22:00 YUMI patel 2021-07-01 2021-07-01 Outpatient DARYL LAU MDA MDA [id number] 09:26:55 23:59:00 Chucky nic patel 2021-07-01 2021-07-01 Outpatient DOROTHY DAWSON MDA MDA [id number] 09:26:30 23:59:00 ALEXANDRA patel 2021-06-30 2021-06-30 Outpatient DARYL LAU MDA MDA [id number] 10:12:14 23:59:00 Chucky o amanda 2021-06-29 2021-06-29 Outpatient DARYL LAU MDA MDA [id number] 09:21:07 23:59:00 Chucky o amanda 2021-06-29 2021-06-29 Outpatient DARYL LAU MDA MDA [id number] 16:04:56 16:04:56 Chcuky o amanda 2021-06-29 2021-06-29 Outpatient DOROTHY LORENZ MDA MDA [id number] 12:39:09 12:39:09 YUMI patel 2021-06-29 2021-06-29 Outpatient DARYL LAU MDA MDA [id number] 09:20:50 09:20:50 Chucky patel 2021-06-28 2021-06-28 Outpatient DARYL LAU MDA MDA [id number] 13:24:55 23:59:00 Chucky patel 2021-06-27 2021-06-27 Outpatient DARYL LAU MDA MDA [id number] 08:51:26 23:59:00 Chucky patel 2021-06-27 2021-06-27 Outpatient DOROTHY LORENZ MDA MDA [id number] 10:10:27 10:10:27 YUMI patel 2021-06-27 2021-06-27 Outpatient DOROTHY LORENZ MDA MDA [id number] 07:30:00 08:50:00 YUMI patel 2021-06-24 2021-06-24 Outpatient DARYL LAU MDA MDA [id number] 12:42:26 23:59:00 Chucky o amanda 2021-06-24 2021-06-24 Outpatient DARYL LAU MDA MDA [id number] 10:45:00 12:41:00 Chucky o amanda 2021-06-24 2021-06-24 Outpatient PADMINI [facility] [id number] [place] 00:00:00 00:00:00 [facility] 2021-06-23 2021-06-23 Outpatient DARYL LAU MDA MDA [id number] MD 10:41:38 23:59:00 Chucky o amanda 2021-06-23 2021-06-23 Outpatient DARYL LUA MDA MDA [id number] MD 10:30:12 10:40:00 Chucky o amanda 2021-06-22 2021-06-22 Emergency ER JEREL, MDA Emergency [id number] MD 11:11:00 20:15:00 NICHOLE Locke o amanda 2021-06-22 2021-06-22 Outpatient DRAYL LAU MDA MDA [id number] MD 09:50:00 11:10:00 Chucky o amanda 2021-06-21 2021-06-21 Outpatient DARYL LAU MDA MDA [id number] 08:00:52 23:59:00 Chucky o amanda 2021-06-21 2021-06-21 Outpatient DOROTHY DAWSON, MDA MDA [id number] MD 07:58:46 07:59:00 ALEXANDRA patel 2021-06-20 2021-06-20 Outpatient DOROTHY LORENZ, MDA MDA [id number] 08:14:09 23:59:00 YUMI patel 2021-06-20 2021-06-20 Outpatient DOROTHY LORENZ, MDA MDA [id number] 07:58:43 08:13:00 YUMI Locke o amanda 2021-06-17 2021-06-17 Outpatient DARYL LAU MDA MDA [id number] 11:45:00 23:59:00 Chucky o amanda 2021-06-16 2021-06-16 Outpatient DARYL LAU MDA MDA [id number] 11:42:10 23:59:00 Chucky o amanda 2021-06-16 2021-06-16 Outpatient DARYL LAU MDA MDA [id number] 16:11:01 16:11:01 Chucky o amanda 2021-06-15 2021-06-15 Outpatient DOROTHY POLK, MDA MDA [id number] MD 10:37:55 23:59:00 ENE Locke o amanda 2021-06-15 2021-06-15 Outpatient DARYL LAU MDA MDA [id number] MD 11:27:15 14:11:36 Chucky o amanda 2021-06-15 2021-06-15 Outpatient DARYL LAU MDA MDA [id number] MD 08:16:55 10:36:00 Chucky o amanda 2021-06-15 2021-06-15 Outpatient CANDY LAUY MDA MDA [id number] MD 07:19:30 08:15:00 Chucky o amanda 2021-06-14 2021-06-14 Outpatient DARYL LAU MDA MDA [id number] MD 20:31:13 23:59:00 Chucky o amanda 2021-06-14 2021-06-14 Outpatient DARYL LAU MDA MDA [id number] 08:01:28 20:30:00 Chucky o amanda 2021-06-13 2021-06-13 Outpatient DOROTHY LORENZ, MDA MDA [id number] MD 09:15:00 23:59:00 YUMI patel 2021-06-13 2021-06-13 Outpatient DARYL LAU MDA MDA [id number] MD 08:20:58 09:14:00 Chucky o amanda 2021-06-13 2021-06-13 Outpatient DARYL LAU MDA MDA [id number] 08:08:42 08:19:00 Chucky o amanda 2021-06-13 2021-06-13 Outpatient DOROTHY LORENZ MDA MDA [id number] MD 06:30:00 08:07:00 YUMI patel 2021-06-10 2021-06-10 Outpatient DARYL LAU MDA MDA [id number] 09:48:20 23:59:00 Chucky o amanda 2021-06-09 2021-06-09 Outpatient DARYL LAU MDA MDA [id number] 08:15:00 23:59:00 Chucky o amanda 2021-06-08 2021-06-08 Outpatient CANDY LAUY MDA MDA [id number] 20:55:35 23:59:00 Chucky nic patel 2021-06-08 2021-06-08 Outpatient DARYL LAU MDA MDA [id number] 13:28:31 20:54:00 Chucky patel 2021-06-08 2021-06-08 Outpatient DARYL LAU MDA MDA [id number] 16:41:38 16:41:38 Chucky o amanda 2021-06-08 2021-06-08 Outpatient DOROTHY DAWSON, MDA MDA [id number] MD 10:37:41 13:27:00 ALEXANDRA patel 2021-06-08 2021-06-08 Outpatient DOROTHY LORENZ, MDA MDA [id number] 09:30:54 09:30:54 YUMI patel 2021-06-07 2021-06-07 Outpatient DARYL LAU MDA MDA [id number] 11:48:52 23:59:00 Chucky patel 2021-06-06 2021-06-06 Outpatient DARYL LAU MDA MDA [id number] 13:38:56 23:59:00 Chucky o amanda 2021-06-06 2021-06-06 Outpatient DOROTHY LORENZ, MDA MDA [id number] 07:00:00 13:37:00 YUMI patel 2021-06-06 2021-06-06 Outpatient DOROTHY LORENZ, MDA MDA [id number] 06:30:00 06:59:00 YUMI patel 2021-06-02 2021-06-02 Outpatient DARYL LAU MDA MDA [id number] 06:16:14 23:59:00 Chucky o amanda 2021-06-01 2021-06-01 Outpatient DOROTHY EDMOND, MARIA DEL ROSARIO MDA MDA [id number] 10:37:44 23:59:00 Chucky o amanda 2021-06-01 2021-06-01 Outpatient DOROTHY RESTREPO, MDA MDA [id number] 13:15:31 14:00:28 CLINT patel 2021-06-01 2021-06-01 Outpatient DARYL LAU MDA MDA [id number] 06:18:07 10:36:00 Chucky o amanda 2021-05-31 2021-05-31 Outpatient DARYL LAU MDA MDA [id number] 14:02:11 23:59:00 Chucky o amanda 2021-05-31 2021-05-31 Outpatient DARYL LAU MDA MDA [id number] 09:00:07 20:53:44 Chucky o amanda 2021-05-31 2021-05-31 Outpatient DOROTHY CARDOSO MDA MDA [id number] MD 15:31:35 15:31:35 [facility] Chucky o amanda 2021-05-31 2021-05-31 Outpatient DARYL LAU MDA MDA [id number] 05:46:59 14:01:00 Chucky o amanda 2021-05-30 2021-05-30 Outpatient DARYL LAU MDA MDA [id number] 06:55:13 23:59:00 Chucky o amanda 2021-05-30 2021-05-30 Outpatient DOROTHY LORENZ MDA MDA [id number] 11:10:48 11:10:48 YUMI patel 2021-05-30 2021-05-30 Outpatient DOROTHY LORENZ MDA MDA [id number] 06:15:00 06:54:00 YUMI patel 2021-05-25 2021-05-25 Outpatient DARYL LAU MDA MDA [id number] [id number] 08:51:12 23:59:00 Chucky o amanda 2021-05-25 2021-05-25 Outpatient DOROTHY LORENZ MDA MDA [id number] 10:29:47 11:57:52 YUMI patel 2021-05-25 2021-05-25 Outpatient DARYL LAU MDA MDA 1086 [id number] 08:22:09 08:50:00 Chucky o amanda 2021-05-24 2021-05-24 Outpatient DARYL LAU MDA MDA [id number] [id number] 14:48:05 23:59:00 Chucky o amanda 2021-05-23 2021-05-23 Outpatient DARYL LAU MDA MDA 1086 [id number] 15:22:13 23:59:00 Chucky o amanda 2021-05-232021-05-23 Outpatient DOROTHY LORENZ MDA MDA [id number] 08:29:28 15:21:00 YUMI patel 2021-05-23 2021-05-23 Outpatient DOROTHY LORENZ MDA MDA [id number] 08:49:56 14:05:15 YUMI patel 2021-05-23 2021-05-23 Outpatient DARYL LAU MDA MDA 1086 [id number] 06:28:35 08:28:00 Chucky patel 2021-05-22 2021-05-22 Outpatient DARYL LAU MDA MDA [id number] [id number] 14:50:33 23:59:00 Chucky patel 2021-05-19 2021-05-19 Outpatient DARYL LAU MDA MDA [id number] 11:03:15 13:40:55 Chucky patel 2021-05-18 2021-05-18 Outpatient DOROTHY DAWSON MDA MDA [id number] 09:16:35 23:59:00 ALEXANDRA patel 2021-05-18 2021-05-18 Outpatient DARYL LAU MDA MDA 1086 [id number] 15:19:23 15:19:23 Chucky patel 2021-05-16 2021-05-16 Outpatient DARYL LAU MDA MDA [id number] 08:30:00 23:59:00 Chucky patel 2021-05-11 2021-05-11 Outpatient DARYL LAU MDA MDA 1086 [id number] 12:11:49 23:59:00 Chucky patel 2021-05-11 2021-05-11 Outpatient DOROTHY LORENZ MDA MDA [id number] 13:49:12 16:28:29 YUMI patel 2021-05-11 2021-05-11 Outpatient DOROTHY DAWSON MDA MDA [id number] 08:59:55 15:39:22 ALEXANDRA patel 2021-05-11 2021-05-11 Outpatient DOROTHY DAWSON MDA MDA [id number] 10:00:00 12:10:00 ALEXANDRA patel 2021-05-11 2021-05-11 Outpatient DOROTHY DAWSON MDA MDA [id number] 09:15:00 09:59:00 ALEXANDRA patel 2021-05-09 2021-05-09 Outpatient DOROTHY SALINAS, MDA MDA [id number] MD 11:38:34 11:38:34 LEONID patel 2021-05-09 2021-05-09 Outpatient DARYL LUA MDA MDA 1086 [id number] MD 11:38:24 11:38:24 Chucky patel 2021-05-06 2021-05-06 Outpatient DOROTHY AHUMADA, MDA MDA [id number] MD 10:53:13 23:59:00 ARIANE Locke o amanda 2021-05-06 2021-05-06 Outpatient EL MED, MDA MDA [id number] MD 10:44:38 10:52:00 ARIANE patel 2021-05-06 2021-05-06 Outpatient DOROTHY DAWSON, MDA MDA [id number] MD 08:30:00 10:43:00 ALEXANDRA patel 2021-05-06 2021-05-06 Outpatient DOROTHY POLK, MDA MDA [id number] 07:45:03 08:29:00 ENE patel 2021-05-04 2021-05-04 Outpatient DARYL LAU MDA MDA [id number] [id number] MD 10:40:00 23:59:00 Chucky patel 2021-05-04 2021-05-04 Outpatient DOROTHY DAWSON, MDA MDA [id number] MD 10:16:12 12:58:49 ALEXANDRA patel 2021-05-04 2021-05-04 Outpatient DOROTHY LORENZ, MDA MDA [id number] 09:45:00 10:39:00 YUMI patel 2021-05-03 2021-05-03 Outpatient DOROTHY DAWSON, MDA MDA [id number] MD 08:06:41 23:59:00 ALEXANDRA patel 2021-05-03 2021-05-03 Outpatient DOROTHY DAWSON, MDA MDA [id number] MD 06:25:36 06:25:36 ALEXANDRA patel 2021-05-02 2021-05-02 Outpatient EL MDA MDA [id number] 13:03:47 13:06:58 Chucky o n 2021-04-22 2021-04-22 Outpatient EL MDA MDA [id number] MD 11:48:16 11:48:16 Chucky o n 2021-04-22 2021-04-22 Outpatient EL MDA MDA [id number] MD 11:48:13 11:48:13 Chucky o n 2021-04-22 2021-04-22 Outpatient EL MDA MDA [id number] MD 11:48:12 11:48:12 Chucky o n 2021-04-22 2021-04-22 Outpatient EL MDA MDA [id number] MD 11:48:10 11:48:10 Chucky o n 2021-04-22 2021-04-22 Outpatient EL MDA MDA [id number] MD 11:48:08 11:48:08 Chucky o n 2021-04-22 2021-04-22 Outpatient EL MDA MDA [id number] MD 11:48:06 11:48:06 Chucky o n 2021-03-18 2021-03-18 Outpatient [facility] [id number] [facility] 2021-02-15 2021-02-15 Outpatient [facility] [id number] [facility] 2021-01-11 2021-01-11 Outpatient [facility] [id number] [facility] 2020-10-26 2020-10-26 Outpatient [facility] [id number] [address] [place] [address] 00:00:00 00:00:00 PAT [address] 2020-04-07 2020-04-07 Outpatient [facility] [id number] [facility] 2020-03-15 2020-03-15 Outpatient [facility] [id number] [facility] 2020-02-11 2020-02-11 [facility] [id number] [facility] 09:19:00 09:19:00 t Specialty[facility] l Clinic Outpati ent Clinics 2019-12-23 2019-12-23 [facility] [id number] [facility] 13:20:00 13:20:00 t [facility] Medicine Outpati ent Clinics 2019-12-12 2019-12-12 [facility] [id number] [facility] 11:00:00 11:00:00 t [facility] Medicine Outpati ent Clinics 2019-12-04 2019-12-04 [facility] [id number] [facility] 08:44:00 08:44:00 t Potential [facility] Medicine Outpati ent Clinics 2019-11-21 2019-11-21 [facility] [id number] [facility] 16:47:00 16:47:00 t Specialty/U [facility] - [facility]Urology Clinic l Clinic Outpati ent Clinics 2019-11-14 2019-11-14 [facility] [id number] [facility] 08:00:00 08:00:00 t Potential [facility] Medicine Outpati ent Clinics 2019-11-13 2019-11-13 [facility] [id number] [facility] 14:40:00 14:40:00 t Potential [facility] Medicine Outpati ent Clinics 2019-10-24 2019-10-24 Outpatient [facility] [id number] [place] 00:00:00 00:00:00 PAT [address] 2019-10-22 2019-10-22 [facility] [id number] [facility] 14:12:00 14:12:00 t Specialty/U [facility] - [facility]Urology Clinic l Clinic Outpati ent Clinics 2019-10-14 2019-10-14 Outpatient [facility] [id number] [address] [place] 00:00:00 00:00:00 PAT [address] Results Test Description Test Time Test Comments Results Result Comments Source Glomerular Filtration Rate 2021-09-20 18:28:20 Test Item Value Reference Range Interpretation Comme nts eGFR-AA (test code = 89 See_Comment Normal eGFR: >= 60 06648-6) mL/min/1.73 m2N ote: The eGFR is calculated [...] 15 [Automated mess age] The system which [employer] nerated this result transmit mary reference range: >=60 mL/ min/1.73 sq. m. The referenc e range was not used to int erpret this result as shavon l/abnormal. eGFR-JOSELITO (test code 77 See_Comment Normal e GFR: >= 60 = 98132-9) mL/min/1.73 m2N ote: The eGFR is calculated [...] 15 [Automated mess age] The system which [employer] nerated this result transmit mary reference range: >=60 mL/ min/1.73 sq. m. The referenc e range was not used to int erpret this result as shavon l/abnormal. PEDRO LUIS (test code = Pls schedule PEDRO LUIS) videostrobe prior to [facility] MD [place].Serum [id number] 18:28:19 Test Item Value Reference Range Interpretation Comments Creatinine (test code 0.98 mg/dL 0.67-1.17 = 2160-0) PEDRO LUIS (test code = PEDRO LUIS) Pls [facility] [id number] 18:28:18 Test Item Value Reference Range Interpretation Comments BUN (test code = 3094-0) 35 mg/dL 6-23 H PEDRO LUIS (test code = PEDRO LUIS) Pls schedule videostrobe prior to [facility] Lab Interpretation (test Abnormal code = 19131-9) [id number] 18:28:17 Test Item Value Reference Range Interpretation Comments TSH (test code 3.11 See_Comment [Automated m essage] = 06063-7) The system [employer] h generated this result transmit mary reference range : 0.27 - 4.20 mcunit/mL. The reference range was not used to interpret this result as normal/abnormal . PEDRO LUIS (test code Pls schedule = PEDRO LUIS) videostrobe prior to [facility] [place] [id number] 18:28:16 Test Item Value Reference Range Interpretation Comments T4 Free (test code 1.40 ng/dL 0.93-1.70 = 3024-7) PEDRO LUIS (test code = Pls schedule videostrobe PEDRO LUIS) [facility] [id number] 21:40:26 Test Item Value Reference Range Interpretation Comments Submitted Clinical History [id number] (test code = 76688) mbGFuZzEwMzNcZnRuYm pcdWMxIHtccnRmMVxzc 9QlL8CuAbYoQZbhcoBp XGRlZmxhbmcxMDMzXGZ 0bmJqXHVjMVxkZWZmMH jqQs0ccIIboUjkOkLsG PZlj7fhkxAAqyfqdQy1 v7ykVQDwFmG9uIJyJOz hA8nrpeSghSGsHMZdGT q4yF20RENjaI7wmVUxL HopfzPkFaR0CBqxZGDx KzQ2JMWaiJNySNVhX6e yZWQwXGdyZWVuMFxibH QlAIT2gUciz3F2aSPsl GVldHtcZjBcZnMyMiBO j4OdANi2pQaaY7TaWWC dAcB1bGPeVYWwMHvkWV JrPRRystP7vZ37CKllt eC9zYSsb0Ero05bz235 uG6xqJDbJAC5YGVnBGN jgXBdAXVaWSR7DAGgwY ShX8wfBDVsSW1jikwzY LvaFWykZEAavZH7OKXy sZEvH6CuWEUrLIxmIWS usfq6MwAxZa4bkCHytO mqKDuvg8wxq4mwbYPqY eo2LZLdPlVyObasCJky y8Qqz5ryGEOkkf1pUIE 7jXGozYdqg3P4jZHmHJ MdpCTjgqGmBVLfApV0T SxoQM3xgd44PXXdADI8 tw3dgBRpcUgolxPqoHN bUKkfS2BzJZRlq405EG IuW6VnIHXtk7K7rjYrD jFxVDKsqYW2kjZ5SGOb UPm1hPBimlG7rfHcyBF nE3lfgN4jYXNjLM4zon oee4iuARvrWFxmVJOyi XQ6wiB6GMCaxBFtJ8Xe dO0qGLYrUGxvYRPdsde 8JyHlZq7luSXqeFdeEU xzYmtwYWdlXHBnbmNvb nRccGduZGVjXHBsYWlu XHBsYWluXGYwXGZzMjR ujNtjbDshuH2mLfAxAx SpNNinLL7nRIHvX9eez YBnOYYsAENqN5hxPjCq zM7pzBhnBIftotWgODg ai60fBLFcxKCfGY2lrC EmuxCmbKBfBP8bhPSkv Uiutatai6Szy2TpJ2zv wRMcGVjOIYZsOW5pfEo zhD1xUjWlLzJzGekiUL 8bGKMrS7tpiCCvDCPpS PVaR4smTnWjsG4kaHrk WNpyplSbFOUauv70 Diagnosis (test code = 34) l2zwnFKyOJJbbFX7YwW kOEBnb7lxo2RyjUZwjD LrYTruiDPsgzJdut52c GR2zH58UJ5fTSScMgK4 IKRzffN6Uiu2MGMwGHT bxHBzB815u3rzj9fyxm SzeZH9OSSdGHFpY0RkW K3iURDipWTaI16hsXFn NPG7APDlJJSniTYwVNB yBIQ8BRIevGIkU3sjUO RmCF7foncaRDyeIDvaX IGzsQM2SXIdgDKsW9Nm NPFjEMlxHFVpcjd2XqS wTz7cnNNixBmoRUuyZE JkXHBsYWluXGZzMjBcY 7KpTON5JRF6j5YspwMk CLDurD1rq4i7UHNrgrt koTddSHcyyD58VbLpI5 PvBPM9n4YynaPwJG84C 64iDHO2wHNcGT5hYJTw YPeuk4C8jWCjYORfk5D tYWxpdHkuXHBhclxsaT IrhOkkLVoyQHSkY2HlO MZ4QJX9z60eM7hkYJbz d2SwkFAbJQ18vzQdVIZ awE4ph3u9EWBunbrrbO ulXTajjM76NjTyZ1QxZ EFudHJhbCBhbmQgdHJh jdYbwFgniyTcLH43U50 lPKH8gIKjFWCcEDX6wC IxJUtif6Dwt8EyxNm4U jagPBXdHh2uJQcoJBYv aWNvYmFjdGVyIFxpMCB vcmdhbmlzbXNcaSAgXG cgQOlPUyLuj7MfwU0pR C8lLCzraCPalAgpWTmc zQB8OSVkTZWfRIJzYPZ udGlmaWVkLlxwYXJcbG kwXGxpbjBccGFyXGNmM VSBUiPNrQ3oZSIyYPUi CZH8wkcsDAUaYYmirn0 ksAphqwv0tEkfTylsvS M8FjylCZXerSm1AmHeo VdgJfHjEFAnKMFRaR5v qNOiE4jzkkZcpW9gxEU uXHBhclxsaTBcbGluMF wmABEcK9CqUZM0NAItw T4sQSLbXRCjtZeyPPPe YUq6jgXyACdos0OvnCp tguQ3RK2tKMBcw2BkkA FbhL7nqROhMMYzg8Pvu TpccGFyXGxpNzIwXGxp bjcyMFxjZjAgVHVidWx fmfUuRYRkf89vYlbmUP JccGFyZFxwYXJ9 Gross Description (test i4dooIEbFPWkjWMGFZu code = [id number]) wMVxhbnNpXHNwbHRwZ3 IavfttURrrKL2wTZ5bx SkhgPHwnROgKJ1OSNZl ZmYxXHBhcGVydzEyMjQ eSVSjmXLpxLQ3MSRhTV 1hcmdsMTgwMFxtYXJnc uR3SHPwsAVoP3IkFAGk QP6hfqlgDDG9FKmmmF0 qyxNXFldgKf7exFGdaA tcZjFcZmNoYXJzZXQwX ILtmPtgBYPaMKt3rN8F ZxwaN48pi0E7Gdb2CXV cPROpW0YfUF4zTOSynK YgX00DBypwFTJ2BIYZY mouLYInBG6Et6juAYAw fUTdGRF0ISladXDqWNR ePCNtKDo2TDVbYLlkxX WkEP0kvFhdEscxlPhvk 2VjdCBcXGlkIDUxMDAy QVidQZIcNY6FXjJdTOB aKQPyLZzvWTl3ZCp1UA 5AVgUqBXWmSMB6CNI4H XBeSTn9LBelNK0RGNQa JNL7INiqONTtCCUiCiV tQWf4YNPgHXczUVUrfK FsIFxcZnMgMTAgXFxmY hLgMTAtJBnrhiH8MULv YWluXGJcZnMyMCBBOlx lUERgWDzztIavnQ4sEC SzI92fm6GSi4AvDX9IO Cs8raUslvsqiB1nOZOw qgEcZBesvAFxV9rwMdj bSsGvKjKlBBNAkA5nYG 38rDdsXPXuNOJfmS40N XYtFLSqMCUcDaTzo0N9 PSGudnK9sUTqbYTyWnT xK23agsDbKUAdSoLsV8 6uPACoVbX2SRLoJAPss nRpcmVseSBzdWJtaXR0 UWRdlA3zKRQiGBLohFE tjXTsuYzpGzgfnKX2AQ pvEtrcwU3wsTNZAPAXJ esHNcebroZxPN1OHE2Y LbTEKB71VwOdLXN2YWe ZL0YUtZT8Gvh1OCg9wO tcZmxkcnNsdCBcJzFDf C5TJDwgXknhuCV4YJgl JhggoR8cwGUFIEVYBrs XMbnsowTeCG9FXB9WAU 2FnDUwFXK1sEW0LHEDX wtluNJ5qZS0wK55ZAGf GXKomHDcSNjnI725OMR lOJfsMTr8cyHxKUZqIi HnLCxpJESiH40pp7YOo 5OkZRDkt2cepGgfl6Qb dGVuZFxwYXJccGFyZFx lxJ7oEnZpn4xixOb8XJ nxfxU4RSSstu6knIvuh A9xKJy0OOhdKYCkH7Xk A6FnEEqnSXL0JZPrSlM cXGRiICBPVlIgIiBDMz iqBAM9MeI1KHj9QYSHL bNlFgVbMCTyYTP0XnGk YYd4LVk5WRjSKlPrTLW tRLJ1Maw4CRR9EhB9DF xcdCAyIFxcZiBBcmlhb CBcXGZzIDEwIFxcZmIg KDtjkNSbWO3zvAkhoUH pblxiXGZzMjAgQjpccG LyBH6DTNXxQZxtJRTls ERMCHA9AQ2wDAJNAvkb dHJwYXJcbGluMFxyaW4 lFK0KIBf7xgJgCITaN4 CoIEXhUcYpQ3HmzYAyd XlwN1JrxNIdVyThftCu gE55WDRyIUPkFLZlBPO cgPivrNKwy26xpMD5VZ 7kfFbcu0CmDOWsTFtgL H69xmynAI45LUruQI04 JOosSV6fTRKzQZdyLDZ dC6OpS8D1QJftQC47iO AaySrpe3PsyTx5lFEuI VqjHWLbGfEfLPFej2Yu P8I4KALsBAqca6eiWNE kABkmk0QoGCnILGZSYC 7HXJ0sdJA7RIrCO0DXJ 1gVkELbGHL0rVS3NFBV LxkqpAL1kZK3wJ13LXW sOXClyAFlJYafZ811QD Y1DBRkIUfwn2bwRRKqL Dder2SoUQjRABGETI1V YH0aoOB7WObDD8UBLLz bMMIwCnjpvZOOEJS4KX rzpEqlxGb4n9mfyNEhq 2z5DKrdFDF0zCiddFJl blxsdHJjaFxmczIwIA0 QULSomQOGJJZ8MA1eMS u6RFiwKZGrC1LpZ5Mye lArmWHqDXBxllHfl7kf LMD6EGVsyIDayYPjRdC gPdbkXFD4FWPcBEiaRB 3Dk2jnMVRvaKZwQHO3O FxcaWQgNTEwMDIgXFxk MvGzE9FSXLBgCqB8VQP aTVBfMTo5OAnyS0QBJH LnUCJ3KCYbYQQbPzE0N Si8UQEQHv8uGDMbKLtc FGJ8WjF5MTZbQZIsQSE gMiBcXGYgQXJpYWwgXF xmcyAxMCBcXGZiIFxcZ tuiUUjnJ01swCshpF6i RfceilVhBPW1QPGgfmV NClxwbGFpblxlcGljTm VzdERvYzEgDQpcbHRyc GFyXGxpbjBccmluMCAN ClxsdHJjaFxiXGNmMVx sckXcHZM0o55nW0wlHK ukm9YgzYVmUo9naXNdl 9U9cLBqsXO8DwjdIDac CjEpYG08pLWikHykLZZ rSmLdtEXzTBPmy5Y8RS BmcmFnbWVudHMsIDAuN iE5WUKzTLJ0PHZuOjQf eOMwdiAcL0spARmmmCE mQJIpcVkhKEg7BVP4Bd 6rbCHrLSMwmpPWLC1rN Hmjjx09FOS6w6lmuRYj BRzmXxiygYBzqxS8TJo FXVFTFPbIKfAcDH2aZS xJTktCRUdJTnwyMTAxN qoaqUCMCJP1ACwqmYyk hSp6a2ccaEWon6j7JVq zXZH3wVQSx2hmcPEyQI kgQasjtBFrdvT9OOnXP VYXNLkSDpGlFO5lSIeU HvmALmO7BjOcTQL0NCk GM3WRcFG3Ifq2NAh4hI tcZmxkcnNsdCBcJzFDf W2glSutuK1drXAyE6ac ZnMyMCANClxlcGljTmV sqOYbIxPrihY2ZDOzxO FlGGK3OE3qFZSbetwwB BCzWHVgAUH9FMpxqR21 bHQwXGZzMTZccGFyfVx wbGFpbiANCntcKlxlcG kud2UqqRYlNAgbHFZgY NNjZBwvGTAjES6ONiWb MKIkWPZuUZvvAZa9RAk 3HF9QToJjTLUoYPN6IF S9BfHbJNt3HDbiVM0CQ CLlJZT8DaMwMUAzWFSi KxQpMBo7TPDkLJwoWFA yaWFsIFxcZnMgMTAgXF jrGcImQCRiOLleebS8U HBsYWluXGJcZnMyMCBE OlxwYXIgDQpccGxhaW5 dMAVgI09qd7UNl9XtZE 2BAPc5tiFxjbyahC1kY CVhvzMnPRsyiLJxX5st YtlaDbWgOeFgOXNLg9q vbiwgaGVwYXRpYyBmbG H6nXBfNFrmy0JaaUjou kK4XI3hGMQrn0QkpFOz wQ5nbNJ6NLDeFMQgCFE nCGFdf2W2GVQbegA7cO KalNKpKySxL27iacVsF COmLUSweGwcBR67mARm xQbdl0LsiLp4qWBpALi nXUKbJfTkLGUrf0LiU5 L4PFEqZJtqm0odDLZhV Fbpm3RvWOkYNCHQMK5R BN6fjAJ2IDqRG2OHJ1g HtLKdZVC5zNE8ZXSPQt oyxAQ5rUH1kT46DMAjW ZEpyPSyBRguK058GQE8 KBJqATgot1fnEMGiXBu rx3PlICeVDWQFKL9TJA 2skDU7IZbKB7EOFEemY LQrPuobnDVZHRJ3BMgt zEifvSj5r4rnfOPbp0p 5INbsWBE3jMivsXWnrn ounSUqeTotjbKfMH6BX GRtnICEXQX9YT8aIWv2 HJndSNIqA6OtG8WzvjV laYIfPIZtlsWrs5hhQN W5MLOsuNHxeNEgKtDyJ ickHYU4KZLdLIhqZI3U DQGoXSR2WJmreY17zRY fII3IQVBnTTasEHNiRW DvfsJ7HHQlnSMhUEO4E F2exNfsuCFbpbxldyI1 IA0KfQ== Disclaimer (test code = r5smcVPgTIFuoLZfOuV 9844) zCVRrGUTup0ipKCFlvJ FuZzEwMzNcZnRuYmpcd XZfTYRhMwJvz1nju216 uFVgm5puXYBjQsJ3jAE wLAXrnPCnR328UDAyYP kup3odr9JmYDQipXRrb 2X6QLIMzjtdxGi1bUis R67gh3G2ZjrgP8ehBON kXQHcP1YqZT6eVHDmUs r5FEE0FPG1RLDkNYLqV 8IzVT5xIJPtpFHsLFs8 o6axrMhcWQPsNYG5j1t gKEolldYzDN5aok9zhV c3p9dqziHrZTQxMAFcv URLNIDbB2MhrBaqVj8k uEe2tCmtYmupSTH1Mlz 6LP1rbq93nxz2gAqrJL EfmaqaNvM0OXgzTIArv zxyKVy9PKtsHOSkmFJ3 CQGxcTLtR7McDDFmEE1 ndfr3DXU0NRiaGRTuRl D8AFPpgKZtRQPziYmfD Bxcl553NBB8IjWzBM4t R2Klr0O1nF3vlHXmMHL saNXtUoFoCBErdh8cfX KbJZcnn7LaKES1unG6z ZIfpYSoLMEgWY93Qyae l4HeVpvwACM7GVVhsgE nc6Dyf6vuUkGxibWaN2 jfE9FsVXWfQVViLIIvN tDqkeJrt5Rxn9RwgCLh eNi8i6otDQWwRQTjpBs lp5qyKWL3KMDaG0P7pD Ild3xlJBliGXBmiPB8t bX6GQYqmNQaS6BprD7v YSUnCJ3vyqy7l6zoKWH 4CYvhBWBxWdI9wrY4GF BcaGVhZGVyeTcyMFxmb 654XSI2MiZgMZSdn4Fu F1MmnYnoP89hwTmeF58 gXHWspQlrfD0eiSpidH 5cZjBcZnMyNFxxbFxwb HSdnqfyIQnvqfX0PYlz tfyeWYUpTDdhS6krZvL mBYOkePubAAope4TlYG RfTHGrMvthecD4TPQPl 88lEGHfp9VuLPNltR1y xLZgTQhirnYghCU8EQw hdmUgYmVlbiBkZXZlbG 2fVZRhOT8uRGUxulChs l4viiLwRYAiAQGnL7Ue cmlzdGljcyBkZXRlcm1 jbgJbVCK8QLEFQP8WJB HfUQVuq64vINSqmRxsx J5ezVUjmaGhOQGll8Uy qN3ieBDFBQCaQ0aoQU8 kCElez8JhnVHsmYIdyM F7CKVqi9UxVuCxstZwj AKnkWVyU3NdpEjvJ8gv HRFxQXTelhPsyPYul0O nSGWyuXK5iKRbRW7YFc THo14zDOJqGXRJrgGqQ GWwzXqkoGL1faG4lG1s LiBJZiBhcHBsaWNhYmx kHDWid401pt1gyoU9RT QrYWXwlwfyw3QjBRNmE MPbnY83GRYyUYIpfw5b bqcsxNXuzbMjY6Nxlli 1yR3mFFMsZBjbJIUbZE ZzMjJcbGFuZzEwMzNca GljaFxmMVxkYmNoXGYx WWlmC5rqGbHmHwRcXak wYXJ9 MD [facility]ST[facility] Glucose [id number] 15:26:33 Test Item Value Reference Interpretation Comments Range POC Glucose (test 131 mg/dL 70-99 H Capillary blood code = 90421-2) samples, e.g . obtained by fingerstick, ma [...] Capillary code = 9554) Performing Lab (test [facility] code = 41178) [facility], [address] [place] [address] [place], [place] [address]; Crew Member: Paty Chavez MD Lab Interpretation Abnormal (test code = 20304-2) MD DorantesPhosphorus [id number] 10:30:36 Test Item Value Reference Range Interpretation Comments Phosphorus (test code = 2777-1) 3.0 mg/dL 2.5-4.5 MD DorantesCalcium [id number] 10:30:35 Test Item Value Reference Range Interpretation Comments Calcium Lvl (test code = 54099-2) 8.4 mg/dL 8.4-10.2 MD DorantesElectrolyte Wyvgp9415-05-92 10:30:34 Test Item Value Reference Range Interpretation Comments Sodium Lvl (test code = 138 See_Comment [Au tomated message] 3201-2) The system [employer] generated this result transmitted ref erence range: 136 - 14 5 mEq/L. The refe rence range was not u sed to interpret this result as normal/abnor mal. Potassium Lvl (test code 3.4 See_Comment L [A utomated message] = 9083-3) The system [employer] generated this result transmitted ref erence range: 3.5 - 5. 1 mEq/L. The refe rence range was not u sed to interpret this result as normal/abnor mal. Chloride (test code = 101 See_Comment [Auto mated message] ) The system [employer] generated this result transmitted ref erence range: 98 - 107 mEq/L. The refe rence range was not u sed to interpret this result as normal/abnor mal. CO2 (test code = 2028-02) 26 See_Comment [A utomated message] The system [employer] generated this result transmitted ref erence range: 22 - 29 mEq/L. The reference r jackie was not used to interpret this result as normal/abnor mal. Anion Gap (test code = 11 See_Comment [Aut omated message] ) The system [employer] generated this result transmitted ref erence range: 4 - 14 m Eq/L. The reference r jackie was not used to interpret this result as normal/abnor mal. Lab Interpretation (test Abnormal code = 86196-0) MD DorantesGlucose [id number] 10:30:33 Test Item Value Reference Range Interpretation [...] diabetes Lab Interpretation (test Abnormal code = 97060-7) MD DorantesMagnesium [id number] 10:30:30 Test Item Value Reference Range Interpretation Comments Magnesium (test code = 98016-1) 1.8 mg/dL 1.6-2.6 MD DorantesWabqpivlNublxxvaayiy5937-07-94 10:00:41 Test Item Value Reference Range Interpretation Comments Neutrophil % (test code = 71.7 % 42.0-66.0 H 770-8) Lymphocyte % (test code = 14.8 % 24.0-44.0 L 736-9) Monocyte % (test code = 6.6 % 2.0-7.0 5905-5) Eosinophil % (test code = 5.7 % 1.0-4.0 H 713-8) Basophil % (test code = 0.7 % 0.0-1.0 14555-2) IGRE % (test code = 0.5 % 0.0-0.4 H IGRE % c ount 69513-2) includes Metamyelocytes, Myelocytes, and Promyelocytes. Neutrophil Abs (test code 3.16 K/uL 1.70-7.30 = 751-8) Lymphocyte Abs (test code 0.65 K/uL 1.00-4.80 L = 731-0) Monocyte Abs (test code = 0.29 K/uL 0.08-0.70 742-7) Eosinophil Abs (test code 0.25 K/uL 0.04-0.40 = 711-2) Basophil Abs (test code = 0.03 K/uL 0.00-0.10 704-7) IG Abs (test code = 0.02 K/uL 0.00-0.04 77295-4) Lab Interpretation (test Abnormal code = 00498-1) MD Dorantes.[id number] 10:00:36 Test Item Value Reference Range Interpretation Comments WBC (test code = 4.4 K/uL 4.0-11.0 6690-2) RBC (test code = 789-8) 3.03 See_Comment L [Au tomated message] The system [employer] generated this result transmitted ref erence range: 4.50 - 6 .00 M/uL. The refer ence range was not u sed to interpret this result as normal/abnor mal. Hgb (test code = 718-7) 8.3 See_Comment L [Au tomated message] The system [employer] generated this result transmitted ref erence range: [...] See_Comment [Automate d message] 786-4) The system [employer] generated this result transmitted ref erence range: 31.0 - 3 6.0 gm/dL. The refe rence range was not u sed to interpret this result as normal/abnor mal. RDW-SD (test code = 46.0 fL 35.1-46.3 15190-0) RDW-CV (test code = 14.1 % 12.0-15.5 788-0) Platelet count (test 236 K/uL 140-440 code = 777-3) MPV (test code = 10.0 fL 4.0-10.4 32055-6) INRBC (test code = 0.0 % See_Comment The INRBC (instrument 45409-9) NRBC) value ref lects the enumeration of nucleated red b lood cells contained in a 200uL sampleof whole blood analyzed by the instrument. Thi s value maydiffer from the NRBC value repo rted in a manual differential,wh ich is based on a 100 cell differential. [Automated mess age] The system [employer] generated this result transmitted ref erence range: <=0.0. T he reference range was not used to int erpret this result as normal/abnormal . Lab Interpretation Abnormal (test code = 49573-4) MD DorantesProthrombin Time with [id number] 11:12:21 Test Item Value Reference Range Interpretation Comments PT (test code = 5902-2) 14.9 See_Comment H [Au tomated message] The system [employer] generated this result transmitted ref erence range: 11.5 - 1 3.9 second(s). The reference range was not used to int erpret this result as normal/abnormal . INR (test code = 6301-6) 1.26 0.90-1.10 H Lab Interpretation (test Abnormal code = 71941-3) MD DorantesTMP Interpretation Antibody Screen Stvknphp7509-20-64 13:43:46 Test Item Value Reference Range Interpretation Comments TMP Auto Neg At the present ABSC Interp time, patient (test code = plasma shows no ____NICHOLE GAN 7535) evidence of RBC SERA HUMPHREY MD alloantibodioli. - [id number] mary by: MD Carri ESTRADA [id number] Date/Time: 08.03 8:43 AM CDT Transcribed Rohan e/Time: 08.26.2021 8:43 AM CDTElectronical ly Signed By: MD Carri PEÑA [id number] on 8:43 AM Julián Livingston Interpretation Dmembkhzvn8045-32-99 13:43:45 Test Item Value Reference Range Interpretation Comments TMP XM Interp RBC units (test code = crossmatched for 7566) transfusion appear ADR DWAYNE GAN acceptable. NAI NAPOLES MD - 43539Wnrxeupr by: MD Carri ESTRADA [id number] Date/Time: 08.03 8:43 AM CDT Transcribed Rohan e/Time: 08.26.2021 8:43 AM CDTElectronical ly Signed By: MD Carri BILLINGSLEY 143 on 08.26.2021 8:43 AM Julián Tobar RBC:accc, 2 Yncqz8845-72-14 09:09:32 Test Item Value Reference Range Interpretation Comments PRBC Product Ready 2 Red Blood Cells (test code = Available - 84672-8) Order Form 03 when ready for product issue. Unit Number (test [id number] code = 7002) Product Code (test D9889L51 code = 7003) Unit Expiration [id number] (test code = 892066) Unit Blood Type 9500 (test code = 7004) Product Code Text RBCIRLR CPD AS1 (test code = 500mL 734709) Crossmatch [id number] Expiration Date (test code = ) Unit Irradiated IRRADIATED (test code = 492275) Dispense Status ISSUED (test code = 7001) Unit Blood Type O Negative (test code = 7005) Product Caramel Cutter Helper .BPAM ____ Location (test ___ code = 224376) ___ ____ MD DorantesRBC Product Ready for Pick [id number] 03:22:01 Test Item Value Reference Range Interpretation Comments PRBC Product Ready B2 Blood Bank Product is ready for for Caramel Cutter Helper (test seed cone picker on August 25, code = 755299) 2021 22:21:56 CDT. MD DorantesAntibody Zrfiaa7045-19-60 03:13:05 Test Item Value Reference Range Interpretation Comments ABSC. (test code = 890-4) Negative ABSC MD DorantesCchpdcleXYSAo6079-97-45 03:13:04 Test Item Value Reference Range Interpretation Comments ABORh. (test code = 882-1) O NEG MD DorantesClot Expiration Udvy0860-02-31 03:13:03 Test Item Value Reference Range Interpretation Comments T & S Expiration (test code = 08/28/2021 5318) MD DorantesConfirm [id number] 01:27:34 Test Item Value Reference Range Interpretation Comments ABORh Confirm. (test code = 882-1) O NEG MD DorantesCOVID-19 (SARS-CoV-2)Zttvuoquenfo-IN6975-74-25 00:26:20 Test Item Value Reference Range Interpretation Comments COVID19 Not Detected Not Detected (SARS-CoV-2) (test code = 11516-9) COVID19 SARS Inpatient Indication (test Admission code = 10757) Covid 19 Comment See Note The rufino S ARS-CoV-2 (test code = [place] [address]) use on the dharmesh s Alyson System [...] sheet for patie nts provided by the warehouse shift supervisor ([employer]) can be rev iewed at: https://www.DDStocks .gov/m edia/657136/denys nload. A fact sheet fo r Health Care pro viders is provided by the warehouse shift supervisor ([employer]) and can be reviewed at: https://www.DDStocks .gov/m edia/461144/denys nload Results must be interpreted wit hin [...] is assay has been authorized by t [facility] for use only un isabel Emergency Use Authorization ( EUA) in laboratories that have been CLIA-certified to perform moderate-comple xity and high-comple xity tests. The Microbiology Laboratory at [facility], CLIA Accreditation #[id number] and CAP Accreditation #[id number], verif ied the performance characteristics of this assay. Int ernal controls are us ed to monitor all sta ges of the test proces s. MD DorantesRvcbutfppUOK4365-11-59 23:59:55 Test Item Value Reference Range Interpretation Comments aPTT (test code = 32.7 See_Comment [Automate d message] The 69327-1) system which ge nerated this result transmit mary reference range : 24.7 - 36.8 second(s). The reference range was not used to interpr et this result as shavon l/abnormal. MD DorantesFractionated Yhgzrclmh2627-28-65 23:57:02 Test Item Value Reference Range Interpretation [...] mg/dL 0.0-0.9 code = 1970-) MD DorantesTotal Uqxniva3458-45-37 23:57:00 Test Item Value Reference Range Interpretation Comments Total Protein (test code = 2885-2) 7.2 g/dL 6.4-8.3 MD DorantesAlkaline Tvdugmmbxxh3431-02-68 23:56:56 Test Item Value Reference Range Interpretation Comments Alk Phos (test code = 6768-6) 64 U/L 40-129 MD DorantesUcpprrcjSCX7136-99-38 23:56:54 Test Item Value Reference Range Interpretation Comments ALT (test code = 29 U/L See_Comment [Automated message] The 1741-11) system which ge nerated this result transmit mary reference range : <=41. The reference range was not used to interpr et this result as shavon l/abnormal. MD DorantesAlbumin Unwzg4618-33-10 23:56:53 Test Item Value Reference Range Interpretation Comments Albumin Lvl (test code 3.7 See_Comment [Aut omated message] The = 3744) system which ge nerated this result tra nsmitted reference range : 3.5 - 5.2 gm/dL. The refe rence range was not used to interpret this result as normal/abnormal . MD DorantesAspartate Ojugzpsnbpybvsvd5554-36-78 23:56:51 Test Item Value Reference Range Interpretation Comments AST (test code = 32 U/L See_Comment [Automated message] The 1920-01) system which ge nerated this result transmit mary reference range : <=40. The reference range was not used to interpr et this result as shavon l/abnormal. MD DorantesCOVID-19 (SARS-CoV-2) PCR-Asymptomatic [id number] 10:04:37 Test Item Value Reference Range Interpretation Comments COVID19 (SARS Not Detected Not Detected CoV-2) Result (test code = ____[place] a 20283-6) qualitative reverse-transcr iptase polymerase mario alberto n [...] patients provid ed by the manufacture r ([employer]) c an be reviewed at:https://www. fda.go v/media/980451/ downlo ad. A fact shee t for Health Care pro viders is provided by the warehouse shift supervisor ([employer]) and can be reviewed at: https://www.fda .gov/m edia/390403/denys nload Results must be interpreted wit hin [...] were verified by the Microbiology Laboratory at [facility], CLIA Accreditation # : [id number] and CAP Accreditation # : [id number]. COVID19 SARS FURNITURE REFINISHER Swab Source (test code = 45805) COVID19 SARS Pre-Out of OR Indication (test Procedure code = 25726) MD Edgar Respiratory Culture w/Gram Fndac5114-39-44 01:40:46 Test Item Value Reference Range Interpretation Comments Final Report (test code Normal site shayna A = 8488) present.Generally of low significance.Correlate with clinical data and culture history. Path Review (test code The results have been A = 8492) reviewed and electronically signed by Pathologist:BERTA BRADY MD #[id number] Gram Stain Report (test Moderate WBC's A code = 648-6) seenEpithelial cells seenModerate Gram Positive CocciModerate Gram Variable Madan Lab Interpretation Abnormal (test code = 60381-3) MD DorantesStreptococcal Urine Antigen Path Fsvkil7848-25-82 07:11:21 Streptococcal Urine Antigen Path ReviewPresumptive negative for S. pneumoniae antigen in urine, suggesting no current or recent pneumococcal infection. Infection due to S. pneumoniae cannot be ruled out since the level of antigen present in the urine may be below the detection limit of the test....Reviewed and Electronically signed by Pathologist:Amaury Sinha MD, PhD #[id number] Comment: AMAURY SINHA MD, PhD - [id number] by: AMAURY SINHA MD, PhD - [id number] Date/Time: 07.11.2021 1:11 AM LAYER OUT PLATE GLASS Transcribed Date/Time: 07.11.2021 1:11 AM CSTElectronically Signed By: AMAURY SINHA MD, PhD - [id number] on 07.11.2021 1:11 AM [facility]MD AndersonLegionella Urine Antigen Path Uxehmi2951-10-45 07:11:20 Legionella Urine Antigen Path ReviewNegative for [...] Electronically signed by Pathologist:Amaury Sinha MD, PhD #[id number] Comment: AMAURY SINHA MD, PhD - [id number] by: AMAURY SINHA MD, PhD - [id number] Date/Time: 07.11.2021 1:11 AM L[employer]ASS Transcribed Date/Time: 07.11.2021 1:11 AM CSTElectronically Signed By: AMAURY SINHA MD, PhD - [id number] on 07.11.2021 1:11 AM [facility] AndersonMRSA Screening Ogcrykx9305-65-32 17:31:51 Test Item Value Reference Range Interpretation Comments Final Report (test No Methicillin resistant code = 8488) Staphylococcus aureus isolated. Path Review (test Culture yield may be code = 8492) affected by sample quality, prior treatment, and transportation conditions....The results have been reviewed and electronically signed by Pathologist:Amaury Sinha MD, PhD #[id number] MD Alonzonin T (In-House)2021-07-10 12:49:59 Test Item Value Reference [...] res ults. [Automated mess age] The system Cytodyn generated this result transmitted ref erence range: <=18. e reference range was not used to int erpret this result as normal/abnormal . Lab Interpretation Abnormal (test code = 27850-4) MD DorantesCalcium Ionized, Xmbwtx7338-82-89 04:43:41 Test Item Value Reference Range Interpretation Comments V Ion Ca (test code = 57896-4) 0.96 mmol/L 1.15-1.29 L Lab Interpretation (test code = Abnormal 97503-8) MD DorantesStreptococcus pneumoniae Urine Vkvmwan7099-92-67 23:04:40 Test Item Value Reference Range Interpretation Comments Streptococcal Urine Antigen Negative Interpretation (test code = 54436216) MD DorantesLegionella Urine Efgxncw2006-46-99 22:58:02 Test Item Value Reference Range Interpretation Comments Legionella Urine Antigen Negative Interpretation (test code = 5125670) MD DorantesEixopvvzIewzqzvmrbkbm1004-61-40 00:33:03 Test Item Value Reference Range Interpretation [...] extended diluti on as it exceeds the warehouse shift supervisor's recommended krishnamurthy it. Caution should be exercised when interpreting han ch values and done in conjunction wit h clinical contex t. [Automated mess age] The system Cytodyn generated this result transmitted ref erence range: <=0.08. The reference range was not used to int erpret this result as normal/abnormal . Lab Interpretation Abnormal (test code = 78695-8) MD DorantesGeneral Laboratory Add-On Ssce0122-42-01 22:22:54 Test Item Value Reference Range Interpretation Comments Ordered (test code = 6568) Test Added Test Needed (test code = 7604) Procalcitonin MD Breaux Wavmd8875-60-38 19:02:48 Test Item Value Reference Range Interpretation Comments D-Dimer (test code = 0.77 See_Comment H Recheck ed and 54) VerifiedThe cut off value for exclu mir of venous thromboe mbolismis <0.51 mcg/mL FE Us (fibrinogen equ ivalent units). [Autom ated message] The sy stem which generated this result transmit mary reference range : 0.10 - 0.50 mcg/ml FEU . The reference range was not used to interpr et this result as normal/abnormal . Lab Interpretation Abnormal (test code = 29326-9) MD DorantesCardiac Cevvt2803-48-81 18:51:30 Test Item Value Reference Range Interpretation Comments CK (test code = 5206) 112 U/L 39-308 CK MB (test code = 2.4 ng/mL See_Comment [Automat ed message] 4309) The system Cytodyn generated this result transmitted ref erence range: [...] res ults. [Automated mess age] The system Cytodyn generated this result transmitted ref erence range: <=18. Th e reference range was not used to int erpret this result as normal/abnormal . Lab Interpretation Abnormal (test code = 39940-5) MD [facility]ST[facility] Chem 8 without Hemoglobin and Rcsgdsubob6188-66-75 18:20:24 Test Item Value Reference Range Interpretation Comments POC NA (test code = 131 See_Comment L [Automa mary message] 88718-4) The system Cytodyn generated this result transmitted ref erence range: 138 - 14 6 mEq/L. The refe rence range was not u sed to interpret this result as normal/abnor mal. POC K (test code = 2.3 See_Comment A Method de scription: 07516-5) The i-STAT is a n analyzer used f or in vitro quantific ation of various anal ytes in whole blood. The device uses a s lindsey disposable cart ridge which contains microfabricated sensors, a calibration che ution, fluidics system , and a waste chamber . Each test cartridge contains chemic ally sensitive biose nsors on a [employer] ip that are config ured to perform [...] = 81 See_Comment L [Automa mary message] 4331-3) The system Cytodyn generated this result transmitted ref erence range: 98 - 109 mEq/L. The refe rence range was not u sed to interpret this result as normal/abnor mal. POC VTCO2 (test code 32 See_Comment H [Autom ated message] = 2026-06) The system Cyt[employer]n generated this result transmitted ref erence range: 24 - 29 mEq/L. The reference r jackie was not used to interpret this result as normal/abnor mal. POC Anion Gap (test 21 mmol/L 10-20 H code = 29208) POC BUN (test code = 16 mg/dL 8- 6299-2) POC Crea (test code 1.0 mg/dL 0.6-1.3 Medicati ons, = 96991-1) especially hydroxyurea or supplements, han ch as [...] which contains microfabricated sensors, a calibration che [employer], fluidics system , and a waste chamber . Each test cartridge contains chemic ally sensitive biose nsors on a [employer] ip that are config ured to perform spec ific tests. The microfabricated sensors measure analyte concent ration by an electroch emical assay. POC eGFR-AA (test 87 See_Comment Normal eGF R >= 60 code = 11547-7) mL/min/1.73 m2 The eGFR is calcula mary [...] f ailure <15 (or eve lysis) [Automated e2e Materials] The system Cytodyn generated this result transmitted ref erence range: >=60 mL/min/1.73 m2. The reference range was not used to int erpret this result as normal/abnormal . POC eGFR-JOSELITO (test 75 See_Comment Normal eG FR >= 60 code = 06493-4) mL/min/1.73 m2 The eGFR is calcula mary [...] f ailure <15 (or eve lysis) [Automated [employer] Materials] The system Cytodyn generated this result transmitted ref erence range: >=60 mL/min/1.73 m2. The reference range was not used to int erpret this result as normal/abnormal . POC Glucose (test 132 mg/dL 70-99 H code = 95683-7) POC Ion Ca (test 1.00 mmol/L 1.12-1.32 L code = 35153-3) POC Sample Type Venous (test code = 6690) POC Clean Dev (test Yes code = 6672) Performing Lab (test MDA Main Main Ca mpus code = 95464) [facility] n[facility], [facility] [address], [place] [address]; Crew Member: Paty Chavez MD Lab Interpretation Abnormal (test code = 60430-9) MD DorantesPOC Jbactwkw4388-27-58 18:20:23 Test Item Value Reference Range Interpretation Comments POC Critical Comment See Note Test pe rformer notified (test code = 8955) Ordering Licensed Provider and /o r designee of POC Potassium criti nikki Results. MD DorantesCreatine Tehizc6732-72-03 18:26:09 Test Item Value Reference Range Interpretation Comments CK (test code = 5206) 84 U/L 39-308 MD DorantesNT-Pro BNP (In-House)2021-06-22 18:26:08 Test Item Value Reference Range Interpretation Comments NT ProBNP (test code = 1199 pg/mL See_Comment H [Aut omated message] 8218) The system [employer] h generated this result transmit mary reference range : <=125. The refe rence range was not u sed to interpret th is result as normal/abnormal . Lab Interpretation Abnormal (test code = 06976-1) MD DorantesBnjitskuGDCB6240-16-04 18:26:07 Test Item Value Reference Range Interpretation Comments CK MB (test code = 2.6 ng/mL See_Comment [Automat ed message] The 5154) system which ge nerated this result tra nsmitted reference range : <=10.4. The reference r jackie was not used to int erpret this result as normal/abnormal . MD DorantesPathology Outside Pgjmjnvmqwowbb3058-21-01 20:17:02 Test Item Value Reference Range Interpretation Comments Materials Received (test h4iqpAVjAACnoOPgHzFv code = 9973) HYQiKHQis9llIIKsbUGa ZzEwMzNcZnRuYmpcdWMx GTUiHoWsa6wzy246sPAp b9hoTUPxVoH5hMWkKFHu yFXzJ051IQQkUPhrz2yt g7SpBLMmgGToh2M4DTJO bkdqiCr2cUwsG78zd2X0 HnnjB9jrNEDxIJSpH0Ke YQ5hTOPgYjc6WTZ8TJW5 KKOqTHWvE6DcOT1zAAAl sYEaKSb0v5pqbJgtYNUk BCN4l2aoMBrflhXkQB5c it7qgYr8z7xsahYsNVLb JWIrhCUSCYUvE0FwcNyi Rh8krOk3sFnqIsirMFS3 Oia9XF2zhi74exv4lIzp GZPialnaExQ7EJxsJNEb jfykYPf7XNhuSDZqaDbh MFxtYXJncjcyMFxtYXJn rPN5IODchLTpX2DjFWAf LTpmYYFdfql9IqLiEb9f pHFsbBryVBsvm3epc4aj dJAmJcw2EWBmFwLeTaey WJekb1Deg1wbSSUdcd7n NVT3cCLhvIyzl0P7ySFm ASGcgZPsbdCdDVUrvz94 nYQryVRpuHXfra3oioPq uKVoxFUjVZP9fXTjvqLy KKHohPKvUHAyXD5ceBOb CXOrsJ7vsrhyHEQqLxYh iblmVOOqmHipfnKnYr0h mYsbLAF5YMnbF9lkaZ3m YsD4VJizA7wdeK3dNHn2 EGuawNF2QDQccF6fWI1c bgkli9qkTdDwIK0fuwwc i6azShFyNL9lewp3u4ls BSL1QTznEBFbWoQ7fnR4 NDBcaGVhZGVyeTcyMFxm u398RVB4UqWbXDZvz4Tj F6NvdPdoG01qdQhuY52m ETWvgMzshJ5hySwajG5n TvHmRuHeSNk1tm13IYu1 uyklpIowUFv1urQtJZSd NNV9DABtpSOwDKNdC6p9 yhOxGDPuNXM0HEGtnUBj ZLNtR3p2eeGeGUW2VLt9 cnBhZGRmdDNcdHJwYWRk YjBcdHJwYWRkZmIzXHRy cAWpbQCfqJXxbN5lkHdj JJGhuNQydU0bISL6WNSt cmgzMjBcdHJoZHJcbHRy du33UAMqzfBvjYLtvMkv mFRzDXT5ALToKYNpDWDd BSZ2DQQhLnXjzaXoIEer bGJyZHJiXGJyZHJzXGJy GSS5JXOdJrBeqeSqCNwc bGJyZHJsXGJyZHJzXGJy HCF3DMEoJrQiutAjMOgd bGJyZHJyXGJyZHJzXGJy JPG0YOOtFbCkglDvXJjq bHBhZHQxMFxjbHBhZGZ0 R9zpoVZxVGPnWFgthYAg NLSfH3ceoUWtSIrbXBVo cGFkZmwzXGNscGFkYjBc L4rfLPZcWyJxE5MhvOn0 MDAwXGNsdmVydGFsdFxj aHGoDUT2RSDaZQRkMDFs SZQ0HDNoSnVvxnCpYTxo bGJyZHJiXGJyZHJzXGJy THZ9UPWlWnOmyjBhPYox bGJyZHJsXGJyZHJzXGJy PSN7BCNvTfHmzpLxNZmj bGJyZHJyXGJyZHJzXGJy KXP4IUFxTwQziwTmQBhu bHBhZHQxMFxjbHBhZGZ0 F0hozXVrCILmXJlhfGWt HFTuV7bbcFDjHVmnWQPa cGFkZmwzXGNscGFkYjBc P7lyBECwTpMzB4AoeYs9 NjAwXGNsdmVydGFsdFxj iDAjOFR4QJTfNORiHLXe WCN6CTLmIxGeitQgBZcs bGJyZHJiXGJyZHJzXGJy SFU6ATQxVsKiioMgBVyb bGJyZHJsXGJyZHJzXGJy OMT6VYQbErOkwjRtTLfw bGJyZHJyXGJyZHJzXGJy VDA7FMPhIhPxzhVzVHou bHBhZHQxMFxjbHBhZGZ0 J1mteCMmZNTxMDhghEGn IYPqS6vcpRPrIDxsCPVi cGFkZmwzXGNscGFkYjBc S1obJUDlVkVcR4BtlVh7 WyNuUGWfgjCqqL64Gqre b2MyBBHuEMJ5PBceIMsu bFxwbGFpblxmMVxmczIw JRgepzqhBITfUDjwG4hk ItPpPBVcdMimYRzzo0Tx XGYxXGNmMlxmczIwXGIg RLCnMMNzuY6nXgfuI2Qc vM1hIAunLyrsO8ttKWTp z7OsqX7jFWiylBIfdunv MVxmczIwXGxhbmcxMDMz VEtaP6ztVeUcJEGjoTri RPqyv6NeQPVrTDXxNgag suOlYCa5kbJkQZXomPci pCVpMTgrxqVynJrlg7Xp wfOprIozRINhKIp5dtVh zspwzEm2rXYolUqtEXMh hBrvnE9gYyGyUhMbWUjm bGFpblxmMVxmczIwXGxh oegiYOGyXRdaY9qeGvMp TKWilEdiZFhul4MvKIKg MNGjFgnunrYnQGNeI79q bGVjdGVkXHBsYWluXGYx XGZzMjBcbGFuZzEwMzNc aGljaFxmMVxkYmNoXGYx LFbsE5jqZmPwY7HpDJNb OiAyuOCyC7akJ1BgdLds YXJkXGludGJsXHNzcGFy KOA0vUPwilNpoCEikMZu LTVkPHxaXYB5pGVqffqz jBRnyukfULuuqhF0RQIb YWluXGYxXGZzMjBcbGFu ZzEwMzNcaGljaFxmMVxk BtGzZKTtFAqdM4buRdNr C9VqTABcLnWwBaQVNMXt aXZlZFxwbGFpblxmMVxm czIwXGxhbmcxMDMzXGhp Y5hsFoXbPPDieMjyJPho o5IfQXSoEVXvHvtvuyLg EDp6qxZyLNAknSuzbB44 Virews75JKQth9ytWNZy O8SfeXJnRRMmnIQxSBbh MDhcdHJwYWRkZmwzXHRy cGFkZHIxMDhcdHJwYWRk ZnIzXHRycGFkZHQwXHRy eQDzBRE6T5x1wxCgBTWy SRg3rqWrQUGhDmAooGZo QKO4IZf8PlvitjL8wYOb Y6m6QrqaupEdRNgwdWEl sz12MKZuwqBouQUlgKvr jWPuIWJ2EDXuBTJmUJMh NCD8AJKnVzDvniXtLXkc bGJyZHJiXGJyZHJzXGJy JXT5UZIlByMjwsYgCNnw bGJyZHJsXGJyZHJzXGJy AHX9NGKyNfOojuUlYJoq bGJyZHJyXGJyZHJzXGJy GLE6KGLxRuYbiuGuIGfh bHBhZHQxMFxjbHBhZGZ0 P7nvlZIdHYIiGZywzAFs WWOlS2iozRHtKSjpAXLz cGFkZmwzXGNscGFkYjBc S8qqLQAgAzHeW7YfdCm7 MDAwXGNsdmVydGFsdFxj xECoIJE2QMJmXKBgCNKh RAA6YPXdKnKoqdOlLYks bGJyZHJiXGJyZHJzXGJy OZM1NDGrLtBehkNzDDwq bGJyZHJsXGJyZHJzXGJy UZC6TAEyVgGkxvSmKGho bGJyZHJyXGJyZHJzXGJy AWK5YKByJdOfzaWbEYzx bHBhZHQxMFxjbHBhZGZ0 D4xetMPfVSFwMNgkeGNi LXSmP1bssSAtYYarFTDo cGFkZmwzXGNscGFkYjBc M0xvYGYmDpUaF4MipRo2 NjAwXGNsdmVydGFsdFxj wDRcMSK2GAIoKGGoMOZa JMA9AXRnOzApaxZgDObf bGJyZHJiXGJyZHJzXGJy HHG3RXOaSqDuvmZbEZuu bGJyZHJsXGJyZHJzXGJy GJT3FIIaRgRnnjGhEWzg bGJyZHJyXGJyZHJzXGJy MZJ8LABiXnWoazGhFVzu bHBhZHQxMFxjbHBhZGZ0 Q9vqgZRhFLKcTCrrnNFy EMNmR5bagYYdBFimFVBd cGFkZmwzXGNscGFkYjBc Y7hdUKCfXnDtK5GrgFo2 RxAkHVQnroEghZ08Cqww u3AaSQGlTQG1PIemEIvt bFxwbGFpblxmMFxmczI0 XHBsYWluXGYxXGZzMjBc bGFuZzEwMzNcaGljaFxm VIwxVnGiOWIvXIpuB0kg LkLrQ1CpNJXxOeFhUO8f NvR6LQCkLMB5PQF0ZCTR NHHbEJZII5ACIpmxTRNL L4XldTbjlB7kPyEpXkCy ZClmBQ1xSRMmO2jvoNXw EALbOCVrV3jcCkKukE3u aFxmMVxjZjJcZnMyMFxs dHJjaFxjZWxsXHBhcmRc yY14Hrutv0KcXLIsIHB7 MFxzMFxxbFxwbGFpblxm IElbdpL1XZBwONrvTENj XGZzMjBcbGFuZzEwMzNc aGljaFxmMVxkYmNoXGYx GVazE9qbOqDvO6OaMBQu MjAgMTAvMjUvMjAyMVxw bGFpblxmMVxmczIwXGxh ferhLPRaXPbaH0yjZcNx WMOfyCnjOBmrw8WfULBr PSUiTxnqigKqDMh3bpVo XGNlbGxccGFyZFxpbnRi hBewl3TuvoNzgXueOVDm XHFsXHBsYWluXGYwXGZz AvEcaWzqwP3wGsVrTzBz SFxmSH8xHHNlU4sijKXu GXVqLWVsQ6dkKeJczA3p aFxmMVxjZjJcZnMyMCAx FB7qXl6dFQFwJPZmUNjz XGYxXGZzMjBcbGFuZzEw MzNcaGljaFxmMVxkYmNo NQYkMZmbM2ckScTuC3Ck DXSqGoBhsIDtL2mxP2Qh nSjczrNagQmyr5uikFZu ZEqzv2OxywWnaRtqIZSv XHFsXHBsYWluXGYwXGZz QwKijCyzhI9fZcHaFnRb FPgcCM4uRTFaR8pisJKw GKXmHIWeB6awDkBkgF7o aFxmMVxmczIwXHBhcn0= Addendum 1 (test code = q1mxkHZaCYPxoUM7EeCe 37) ZMEdc7jxw0MwhEEexBMi SVumiVYwayOcxk71rDB5 zZ92VG1mPWUlGfE9PVSg nyO2Xnv0YOPaSAIojPQo Q589b6rcv0tdgmDamEM7 lWgkHYCplajiBtF6EHoo QXGvsxvzAHn0FUrfPCFu cYX8IPAhkHDlG4WnYJNx GV4voiu9RMU6BRwcAQJv RxC0TWMrxYZqQZFelAwn VOall772OQK5FcXoUIYd zsHlkMvsvU0iYgVhDGCK XUOafRkuyjGnVK1bvTYa wHFsOLAjK3IdeoFlRG6n ULSqXsChDzItIaXnPE97 lWWtOJHdNZPfWJJgeJ3r XyevJqB7UFTaQRT8JLTb OTNHKPXuVOSEQ0VKBLRo HARCXpzdK41teWIwlMRe FF3xBKJuYiK6OoGlSeWe XHBhclxwYXIgRGVlcGVy ZUlzklWjtqIxYhZseH1y qtNrJwS8ESQsXNE0TVTu IHdlcmUgZXhhbWluZWQu JFGkPTBwcrssjG2qzMBe mODlvz6wdCZwxzXoXDio lrH8bpQaZF9nJEGmSUYh cn0= Diagnosis (test code = h9kzzUZiKBIepDA7FeZh 34) DBXma5nfl6VflALruETi THpdnCRdjkNnfb36gFU2 yA12LS3kJQZlNoP1RBYb cyQ0Ikh4YXQwVGDucEAa P193s1gwb3kaixYfcLF8 QDIbDWXaM0MgBG5wTAPy yZZeU72xxBHzMKJ0SJZi ICNumLIwWLQpWFI2WVQt vBYsJ0tyKFDrNV0nvhao XPchLFaqOGGisWT0MEXj iMKiY1EnTHVuCIrfZVPd lwg5XtHhGo2ugAWenKqv MFxwYXJkXHBsYWluXGZz EjKuJ5PhAO84qOFeZBXz KDIxOklTMTUzOCwgNiBT Kgj3FDCzkixqWvVawASx XGxpNzIwXGxpbjcyMCBM DRA1ykxoDBEaH3g1OKKn oCPocg0oJTomEcgseZK9 IChBKTpccGFyXGxpMTQ0 OTtecU1cMVSmHKRAHSCR V3WNWAOMNDddH7MTT0eS X67TRDItjFWygSPxm7Sn XITohxIlrvVwb8roxkzi HQSflIy3BzZrdThxDnOj JGWfpeMQGOP0csimCEpa IeTxDSU3oDWak6atKPVp vK6qm3pmKTRkUrgoAEYd fHloARVaBVpahyD1XNGf T0V0YW9vmVVzdXTyr7Om NKyfeQpkM2csi60qCgFu paOvMP7wTVKwh35hRC7m B2J2uWBvDFEkwtZ5mM2s vnmwFLNtuAs0GnBntUaq CuDzOSJxceYQNTI3wubo AVemEaZfUjRgb7Sngc7h QNsiE88xOXtfFjyrzGO3 IChDKTpccGFyXGxpMTQ0 CQimdP7ePVIqCYIvqXXc o6DjVH72B33uJEHrynVy mWxrv7Yys5WqmQPsvnwl C1jvftHvCW0uT6W8aJBl HUGnxtT4gC4ewebdXBVf nWDuBKEqgjEsH59EP6MX TlxwYXJ9 Scene [employer]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) (test code t4tvlSLnDIZrpCD3PhIq = 9882) HYUpj4lnl3AvbQVsrSUr AGwjkIEbcdQuxk29oLS7 vU00IG6lAXXeUoZ2QJZm baM8Qdq2SRVuYDSbnVCy F015q6wcz0twraIxaKC1 tIwnINQmluysYwF9HIma FFArkigwYUv5ZNshUREc vQN0YCOdiFRtB7JaPVCk XZ1ihry7UDW4ZZoqFKIi FbY8CQZmsMIpABGhvDxe ZDvmy785TBI5JnArSRDj rbYueNwuwW6fEuKiWRYT ax5nTCursQHkmQTqF7ee bGlhbXMgaGFzIHJldmll g7WmHPBbmyIsVMAxmzEm G62fF8Hzma0jmGUphG== Biomarker Block(s) (test c4jbbGZwGADeoBV1OnJo code = 9841) JQUtp6rmt6VukELuuRMa JDyuhYXvwhZxon48dMV8 pH80GE9iGJKiGvE4ROQf kkP3Umd6RUArADYugYUc S822k0goe1vpwkInfWO4 gHulWWLthalxQyS9MIrf FYHengjdATj8ABffMLIb eHD1ODFpyMUsE0KiRCDi US8lswc7QYB9SCnbARJs QxZ1SUZkbZGgJOUttOyq XGwrs708XFH2CeKsSGMc soQbgXbboF5kLwArYASE OiBBXHBhciBOOiBDXHBh cn0= Disclaimer (test code = z7lltAKgRBSaeKCeTiWw 9875) AUBgUAUdm5qsDRCszYVa ZzEwMzNcZnRuYmpcdWMx ODAeAjBsb4vun362vOZh a7ifFVXpLmB2oSTpTXEz pXPsS147SLApHPxzo1ju u7QsELFckTMts9N6LZYM ufbndKc7fJmmF70hn1P9 EucyK8reFQBoFXYgL6Tj UF0hJOYkOgs1HYL5XOE6 WWXhYIGrA4QkWI0sRNBt gDPnCDy1z0kgyCiiFWZm GOC9u0svXThirmQzYN3t qw2cjNp7t2mmzfFbIRKo CQBvmKYYNRSzD2HixYjy Hv8esIp1fHsbRvckAME0 Oxf8LD3vgp11ltq2sKjc OIHpwyeqFcR4QUexWXWq ijxdLXs4PEqaTGVcrJM2 PTUzvHUnJ7NfGLPiDP1e lxd4SKQ6LMayCBFzUqI7 NDBcaGVhZGVyeTcyMFxm o922YFT0FuSxOV3pM2Pa p6Z3bL0ahFFnICGakVGm VySvFTYzot9xvJOhLYzr o8CrOUL8pqU6nJJekMDz VQNyRV92Arzhl1McXlxr GXJ7PNFcwvWou0Jts5fd AsTxctVwK1hcX2UzNCLe ZXEcBGXzEbFtbcLtg4Fe b6GiyGEplAl1m8zvOKZb ZIRckJcwq0vvKOW0KOQi R8Q2vDCur2mqBKiyBCQz vGO6liX8WWVpvWUdH8Qb gY0oGROeMT6rxes2j9tn WQM4CUwlKJWyFhT9faV3 NDBcaGVhZGVyeTcyMFxm t190NOG0PhBzFAPtb1Gi Z7CfqWurJ55mlDyoG51r KQTtfDhgfD0lrXwhmB6m ZjBcZnMyNFxxbFxwbGFp zrcfSVgxwbM8TUlukxrc UDIjWCzgZ5opGuDkPYRs dLncWNrxf8AcKYWpUUHm KzediaQ4MMOTb61jNORt b7EoAZXtwZ5ymLDgEEck xaUnlNP0YEdlgkJbXjUg ofZaSIJvjS7bEEHgAW5f MEZfbxSlju9aooWaBPUm EXBiN7AomrpdmYphqfHe TWNuqv1enyRyBHC2DNNG DA1WIOGkPTJka76tCOMu iXjvuB3oyYIbehKaLUUc u7SfsV5sfBIDZAKsC0kk CF1wXTtpk7XtkJCpmWSm iWH2ZUWiy0RoEkVjetMk fOOmcIGqN4XuvDsxM8id BXUgIQVmuvLdlBUsz3Lb AEYnfAU2aCAtTY3KXbXK j57oUVJgWMAJpqIiELHj rBunxEI7njL3jA9sYjTQ ZiBhcHBsaWNhYmxlLCBj d059yx4licB0RPIiDSAk fvhrr1ZaDYDvHJXsoU29 GSWqHXRjyu3upentgOBl eyPtD6Phsco6kG1jEHXv YWluXGYxXGZzMjJcbGFu ZzEwMzNcaGljaFxmMVxk PfNkGYEnYPfzQ8jtUmIq ZnMyMlxwYXJ9 MD DorantesNV COVID-19 (MAURA-CoV-2) PCR [id number] 01:46:37 Test Item Value Reference Interpretation Comments Range COVID19 SARS Pre-Out of OR Procedure Indication (test code = 46970) COVID19 SARS Result Not Detected Not Detected (test code = 49063-4) COVID19 SARS SARS-CoV-2 NOT Detected. Interpretation (test Reference Range: Not code = 67969) Detected Methodology: The [employer] RealTime SARS-CoV-2 assay is a qualitative real-time reverse barrel inspector tight polymerase chain reaction (garbage depot worker-PCR) test to detect RNA from SARS-CoV-2 in nasal, nasopharyngeal and oropharyngeal swabs from patients with signs and symptoms of infection who are suspected of COVID-19 by their health care provider. The [employer] RealTime SARS-CoV-2 performed on the [employer] System is a dual target assay with [...] CLIA-certified, high-complexity Molecular Diagnostics Laboratory (MDL) at [facility] under the Food and Drug Administration (FDA) s Emergency Use Authorization. Factsheet for patients: https://www.[employer].org/ AbbottFactSheetPatientsFact sheet for healthcare providers: https://www.[employer].org/ AbbottFactSheetHCP Test performed by:[facility] [address] [place] [address] MD DorantesGlucose, [id number] 18:55:04 Test Item Value Reference Range Interpretation Comments Glucose Random 136 mg/dL 70-199 Effective 12/03 12/17, the (test code = 9360) glucose r eference intervals have been updated based o n [employer] rommel delines (Standards of [...] Not fasting PEDRO LUIS) MD DorantesVitamin D [id number] 18:49:59 Test Item Value Reference Range Interpretation Comments Vitamin D 25 [place] (test 42 ng/mL 30-100 Refere nce Range: code = 8018) Deficiency: <10 ng/mLInsuff iciency: 10-29 ng/mLSufficienc y: 30-100 ng/mLPotential toxicity: >10 0 ng/mL MD DorantesTMP HCV Ab Path [id number] 12:33:38 Test Item Value Reference Range Interpretation Comments HCV Ab Path There is NO Interp (test serologic evidence code = 8923) of Hepatitis C M AYRIN virus antibody. DELFINO FERNANDEZ,Dictated by: RUFINO FERNANDEZ,Dictated Date/Time: 05.04.2021 6:33 AM LAYER OUT [employer] Transcrib ed Date/Time: 05.04.2021 6:33 AM CSTElectronical ly Signed By: JOSEPHINE IN DELFINO FERNANDEZ, on 05.04.2021 6:33 AM Julián DorantesHepatitis C Virus [id number] 05:13:47 Test Item Value Reference Range Interpretation Comments HCVAb. (test Non Reactive Non Reactive Antibody detect ion in the code = 5762) immunocompromis ed and immunosuppresse d population may be delayed or absent entirely. There fore serial testing, correl ation with other clinical findings, and supplementa l testing (if available) should be taken into cons ideration when interpreti ng the results.Perform ed at:[facility] [id number] [place], [place] [address] [facility] [id number] 12:58:27 Test Item Value Reference Range Interpretation Comments POC Crea (test 1.2 mg/dL 0.6-1.3 Medications, code = 14956-0) especially hydroxyurea or supplements, han ch as [...] ridge which contains microfabricated sensors, a calibration [employer], fluidics system , and a waste chamber . Each test cartridge contains chemic ally sensitive biose nsors on a [employer] ip that are config ured to perform spec ific tests. The microfabricated sensors measure analyte concent ration by an electroch emical assay. POC eGFR-AA (test 70 See_Comment Normal eGF R >= 60 code = 48613-6) mL/min/1.73 m2 The eGFR is calcula mary [...] f ailure <15 (or eve lysis) [Automated e2e Materials] The system Cyt[employer] generated this result transmitted ref erence range: >=60 mL/min/1.73 m2. The reference range was not used to int erpret this result as normal/abnormal . POC eGFR-JOSELITO 60 See_Comment Normal eGFR >= 60 (test code = mL/min/1.73 m2 The 91230-8) eGFR is calcula mary using the CKD-E [...] ailure <15 (or eve lysis) [Automated mes [employer]] The system [employer] generated this result transmitted ref erence range: >=60 mL/min/1.73 m2. The reference range was not used to int erpret this result as normal/abnormal . POC Clean Dev Yes (test code = 6672) Performing Lab Radiology OP [facility] Radiology OP [facility] (test code = [facility] [address]) MD [facility], [address] [facility], [place], [place] [address]; Point of Care L ab Director: MD MD Jose E Bedoya
[2021-10-02 02:52] LABS: Arterial Blood Carboxyhemoglob 1.6 % (0-1.5); Blood Gas Oxyhemoglobin 97.4 % (94-97); Blood O2 Saturation 99.9 % (92-98.5)
[2021-10-02 03:17] LABS: Absolute Lymphocytes (CBC) 2.8 K/uL (0.7-4.9); Hematocrit 30.5 % (39.6-49.0); MPV 8.4 fL (7.6-11.3); RBC Red Blood Cell Count 3.69 M/uL (4.33-5.43)
[2021-10-02 03:21] LABS: Protime INR 1.03
[2021-10-02 03:37] LABS: ALT/SGPT 18 U/L (12-78); AST/SGOT 15 U/L (15-37); Albumin 3.2 g/dL (3.4-5.0); Alkaline Phosphatase 78 U/L (45-117); BUN Blood Urea Nitrogen 26 mg/dL (7-18); Bicarbonate 33 mmol/L (21-32); Bilirubin Direct 0.2 mg/dL (0-0.2); Bilirubin Total 0.3 mg/dL (0.2-1.0); Glomerular Filtration Rate > 90 mL/min (=/>90); Glucose Level 168 mg/dL (74-106); Magnesium 2.1 mg/dL (1.8-2.4); NT PRO-BNP 433 pg/mL (<125); Potassium 4.6 mmol/L (3.5-5.1); Protein, Total 7.1 g/dL (6.4-8.2); Sodium Level 130 mmol/L (136-145); Troponin High Sensitivity 48.8 pg/mL (<58.9)
[2021-10-02] MEDS ORDERED: NA CHLORIDE 0.9% 50 ML ONE (03:47)
[2021-10-02] MEDS ORDERED: AZITHROMYCIN 500 MG INJ IVPB ONE (03:47)
[2021-10-02] MEDS ORDERED: CEFTRIAXONE 1000 MG/VIAL ONE (03:47)
[2021-10-02] MEDS ORDERED: NA CHLORIDE 0.9% 250 ML ONE (03:47)
[2021-10-02 04:02] LABS: SARS-COV-2 RT PCR NEGATIVE (NEGATIVE)
--- NOTE | 2021-10-02 04:10 | P.HP ---
Certification for Inpatient Patient admitted to: Inpatient With expected LOS: >2 Midnights Patient will require the following post-hospital care: None Practitioner: I am a practitioner with admitting privileges, knowledge of patient current condition, hospital course, and medical plan of care. Services: Services provided to patient in accordance with Admission requirements found in Title 42 Section 412.3 of the Code of Federal Regulations Patient History Date of Service: 10/02/21 Reason for admission: COPD exacerbation History of Present Illness: 71-year-old male patient with history of COPD, diabetes mellitus type 2not insulin-dependent, throat cancer with aspiration risk/PEG tube in place, hypertension presents emergency department in respiratory distress. Patient was seen here in the emergency department last Sunday and Sunday for COPD exacerbation was stable for discharge at that time but has been getting worse over the course of the last 24 hours. Patient arrived to the ER on high flow oxygen tachypneic and dyspneic he was placed on BiPAP upon arrival. ABG demonstrated hypercapnic respiratory failure his labs were significant for leukocytosis, normocytic anemia, mild hyponatremia. at bedside reports patient is high risk for aspiration and for that reason has a PEG tube, he is not currently on any chemo or radiation, he is pending a repeat PET scan to determine his cancer status. With a 2 admit for further evaluation and management of acute hypercapnic respiratory failure/COPD exacerbation. Allergies No Known Allergies Allergy (Verified 03/28/21 08:07) Home Medications: Albuterol Inhaler [Ventolin Inhaler*] 2 puff IH Q6H PRN 03/24/21 Aspirin [Aspirin EC 81 MG] 81 mg FT DAILY 03/24/21 Budesonide/Formoterol Fumarate [Symbicort 80-4.5 Mcg Inhaler] 2 puff IH BID 03/24/21 Clopidogrel Bisulfate [Plavix*] 75 mg FT DAILY 03/24/21 Fenofibrate 50 mg FT DAILY 03/24/21 Ferrous Sulfate [Iron] 325 mg FT DAILY 03/24/21 Metformin HCl [Glucophage*] 500 mg FT BID PRN 03/24/21 Amlodipine [Norvasc*] 10 mg FT DAILY 09/10/21 Cetirizine HCl 10 mg FT DAILY 09/10/21 Clonidine HCl [Clonidine HCl ER] 0.1 mg FT PRN PRN 09/10/21 Folic Acid 1 mg FT DAILY 09/10/21 Gabapentin 300 mg FT TID 09/10/21 Lactose-Reduced Food [Ensure Complete] 375 ml FT SEECOM 09/10/21 Lactose-Reduced Food [Ensure Complete] 500 ml FT DAILY 09/10/21 Lansoprazole 30 mg FT DAILY 09/10/21 Magnesium Oxide 500 mg FT DAILY 09/10/21 Nicotine [Nicoderm Cq] 1 each TD DAILY 09/10/21 Polyethyl Gly 3350 [Glycolax*] 17 gm FT TID 09/10/21 Potassium Chloride 30 ml FT DAILY 09/10/21 Potassium-Sodium Phosphates 1 packet FT BEDTIME 09/10/21 Prochlorperazine Maleate [Compazine] 5 mg FT Q4H PRN 09/10/21 Rosuvastatin Calcium 40 mg FT BEDTIME 09/10/21 Thiamine HCl 100 mg FT DAILY 09/10/21 Tramadol HCl [Ultram] 50 mg FT Q4H PRN 09/10/21 ondansetron HCL [Ondansetron HCl] 8 mg FT Q8H PRN 09/10/21 Amox Tr/Potassium Clavulanate [Augmentin 400-57 mg/5 ml] 10 ml FT BID 7 Days #14 ml 09/16/21 - Past Medical/Surgical History Diabetic: Yes -: DM type II -: Hypertension -: Laryngeal cancer -: Peripheral vascular disease -: Iliac artery stent Psychosocial/ Personal History: Patient lives at home with his - Family History Mother -: Cancer - Social History Smoking Status: Former smoker Alcohol use: No CD- Drugs: No Place of Residence: Home Review of Systems 10-point ROS is otherwise unremarkable Respiratory: Cough, Shortness of Breath, Sputum, Wheezing, As per HPI Physical Examination - Physical Exam General: Alert, In no apparent distress, Oriented x3 HEENT: Atraumatic, PERRLA, Mucous membr. moist/pink, EOMI, Sclerae nonicteric Neck: Supple, 2+ carotid pulse no bruit, No LAD, Without JVD or thyroid abnormality Respiratory: Diminished, Expiratory wheezes, Other (Moderate respiratory distresson BiPAP) Cardiovascular: Regular rate/rhythm, Normal S1 S2 Capillary refill: <2 Seconds Gastrointestinal: Normal bowel sounds, No tenderness, Other (PEG tube in place) Musculoskeletal: No tenderness Integumentary: No rashes Neurological: Normal strength at 5/5 x4 extr, Normal tone, Normal affect - Studies Laboratory Data (last 24 hrs) 10/02/21 02:40: PT 11.3, INR 1.03 10/02/21 02:40: WBC 13.4 H D, Hgb 9.8 L, Hct 30.5 L, Plt Count 360 D 10/02/21 02:40: Sodium 130 L, Potassium 4.6, BUN 26 H, Creatinine 0.80, Glucose 168 H, Magnesium 2.1, Total Bilirubin 0.3, AST 15, ALT 18, Alkaline Phosphatase 78 Assessment and Plan - Plan Assessment: Acute hypoxic/hypercapnic respiratory failure secondary to COPD with exacerbation Laryngeal cancer with PEG tube Diabetes mellitus type [id number] Hypertension Mild hyponatremia normocytic anemia Plan: Acute hypoxic/hypercapnic respiratory failure secondary to COPD with exacerbation: Continue BiPAP, Brovana, as needed nebulizer treatments, IV steroids, supplemental oxygen as needed. Pulmonology consulted leukocytosis noted, patient on Rocephin/Zithromax currently. Sputum culture ordered. Laryngeal cancer with PEG tube: Stable, n.p.o. continue tube feeds. Patient not currently on any chemo/radiation pending PET scan for further evaluation Diabetes mellitus UMpvq-upzrgcs-lhonqijmn: ACH S Accu-Chek, sliding scale insulin Hypertension: Continue home medication Mild hyponatremia: Continue gentle IV fluids normocytic anemia: Likely anemia of chronic disease/malignancy, transfuse to maintain hemoglobin greater than 7. DVT PPX:Lovenox Code status:Full Discharge Plan: Home Plan to discharge in: 72 Hours - Advance Directives Does patient have a Living Will: No Does patient have a Durable POA for Healthcare: No - Code Status/Comfort Care Code Status Assessed: Yes (Full code) Critical Care: No Time Spent Managing Pts Care (In Minutes): 55
--- NOTE | 2021-10-02 04:14 | ER ---
Nurse's Notes [facility] Name: Roland Lam Age: 71 yrs Sex: Male : 1950 Arrival Date: 10/02/2021 Time: 02:38 Bed 3 Private MD: Diagnosis: COPD/ Chronic obstructive pulmonary disease with (acute) exacerbation Presentation: 10/02 02:41 Chief complaint: EMS states: Called for patient with respiratory distress; Wheezing lp1 upon arrival of EMS; EMS ran on patient previously tonight, administered Albuterol Nebulizer, no transport; Patient hx of Throat cancer. Coronavirus screen: shortness of breath. Ebola Screen: No symptoms or risks identified at this time. Initial Sepsis Screen: Does the patient meet any 2 criteria? RR > 20 per min. HR > 90 bpm. Yes Does the patient have a suspected source of infection? Yes: Productive cough/pneumonia. Risk Assessment: Do you want to hurt yourself or someone else? Patient reports no desire to harm self or others. Onset of symptoms was October 02, 2021. 02:41 Method Of Arrival: EMS: [facility] lp1 02:41 Acuity: HOWARD 1 lp1 Triage Assessment: 02:46 General: Appears distressed. Respiratory: Respiratory effort is labored, weak, lp1 Respiratory pattern is tachypnea. Derm: Skin is intact, Skin is diaphoretic, Skin is pale. 02:50 Respiratory: Onset: The symptoms/episode began/occurred gradually. lp1 Historical: - Allergies: 02:45 No Known Allergies; lp1 - PMHx: 02:44 CAD; COPD; Diabetes - NIDDM; High Cholesterol; THROAT CA; lp1 - Immunization history:: Adult Immunizations up to date. - Social history:: Smoking status: Patient reports the use of cigarette tobacco products, smokes one-half pack cigarettes per day. Screenin:45 Abuse screen: Denies threats or abuse. Denies injuries from another. Nutritional lp1 screening: No deficits noted. Tuberculosis screening: No symptoms or risk factors identified. Fall Risk Total Arnold Fall Scale indicates High Risk Score (45 or more points). Fall prevention measures have been instituted. Side Rails Up X 2 Placed Close to Nursing Station Frequent Obs/Assessments Occuring As available patient and family educated on Fall Prevention Program and Strategies. Assessment: 03:00 General: Appears distressed, ill, Behavior is anxious. Pain: Denies pain. Neuro: Level lp1 of Consciousness is awake, obeys commands. Cardiovascular: Patient's skin is warm and dry. Rhythm is sinus tachycardia. Respiratory: Airway is patent Trachea midline Respiratory effort is labored, shallow, Respiratory pattern is tachypnea Breath sounds are diminished in left posterior lower lobe and right posterior lower lobe the patient has severe shortness of breath. GI: Abdomen is non-distended, PEG tube in place, clamped. : No signs and/or symptoms were reported regarding the genitourinary system. EENT: No signs and/or symptoms were reported regarding the EENT system. Derm: Skin is intact, Skin is diaphoretic, Skin is pale, Nicotine patch to left upper arm. Musculoskeletal: No deficits noted. 03:12 Reassessment: Hospitalist at bedside to discuss plan of care with patient and . lp1 04:03 Reassessment: Patient tolerating BiPAP at this time; at bedside. General: Appears lp1 in no apparent distress. Neuro: Level of Consciousness is awake, obeys commands. Cardiovascular: Patient's skin is warm and dry. Respiratory: Airway is patent Respiratory effort is even, Patient placed on BiPAP: FiO2%: 30 Breath sounds are diminished in left posterior lower lobe and right posterior lower lobe. Derm: Skin is intact, Skin is dry, Skin is pale. 04:09 Reassessment: RT at bedside for repeat ABG. lp1 05:08 Reassessment: Patient appears in no apparent distress at this time. Patient tolerating lp1 BiPAP, aware of pending admission; appears more comfortable at this time; at bedside. Vital Signs: 02:41 BP 161 / 90; Pulse 129; Resp 38; Temp 97.4(TE); Pulse Ox 100% on 15% Non-rebreather lp1 mask; Weight 68.04 kg; 03:00 BP 139 / 72; Pulse 124; Resp 21; Pulse Ox 94% on 30% BiPAP; lp1 04:00 BP 105 / 69; Pulse 117; Resp 19; Pulse Ox 98% on 30% BiPAP; lp1 05:00 BP 102 / 79; Pulse 111; Resp 16; Pulse Ox 98% on 30% BiPAP; lp1 ED Course: 02:38 Patient arrived in ED. tw5 02:40 Initial lab(s) drawn, by ED staff, sent to lab. First set of blood cultures drawn by ED tw5 staff. 02:41 Aga Velasco, KWAN is Primary Nurse. lp1 02:44 Triage completed. lp1 02:44 Arm band placed on. lp1 02:45 Willie Baptiste MD is Attending Physician. 7 02:46 Patient has correct armband on for positive identification. Placed in gown. Bed in low lp1 position. Call light in reach. Side rails up X2. hog ringer on. Pulse ox on. NIBP on. 02:55 Second set of blood cultures drawn by ED staff, EKG done, COVID swab sent to lab. tw5 02:55 Maintain EMS IV. Dressing intact. Good blood return noted. Site clean \\T\\ dry. Gauge \\T\\ tw 5 site: 24 Left Hand. 03:02 Procalcitonin Sent. tw5 03:02 Basic Metabolic Panel Sent. tw5 03:02 CBC with Diff Sent. tw5 03:02 COVID-19/FLU A+B (Document "Date of Onset" if Symptomatic) Sent. tw5 03:02 Blood Culture Adult (2) Sent. tw5 03:02 Lactate Sent. tw5 03:02 LFT's Sent. tw5 03:02 Magnesium Sent. tw5 03:02 Troponin HS Sent. tw5 03:02 PT-INR Sent. tw5 03:02 NT PRO-BNP Sent. tw5 03:02 Accessed Left Upper arm Midline Placed by Piero BARRIGA. tw5 03:30 XRAY Chest (1 view) In Process Unspecified. EDNM 04:12 Steve Gaming MD is Hospitalizing Provider. [facility] 04:13 No provider procedures requiring assistance completed. Patient admitted, IV remains in lp1 place. Administered Medications: 02:46 Drug: SOLU-Medrol (methylPrednisoLONE) 125 mg Route: IVP; Site: left hand; tw5 03:30 Follow up: Response: No adverse reaction lp1 02:48 CANCELLED (Physician Discretion): Albuterol 2.5 mg Inhalation once lp1 02:48 CANCELLED (Physician Discretion): AtroVENT (ipratropium) Aerosol 0.5 mg Inhalation once lp1 02:48 Drug: DuoNeb (albuterol 2.5 mg, ipratropium 0.5 mg) (3:1) (2.5 mg - 0.5 mg) 3 ml Route: lp1 Nebulizer; 03:45 Follow up: Response: No adverse reaction lp1 03:02 Drug: Magnesium Sulfate 1 grams Route: IVPB; Infused Over: 1 hrs; Site: left upper arm; tw5 04:00 Follow up: IV Status: Completed infusion; IV Intake: 100ml lp1 03:45 Drug: Rocephin (cefTRIAXone) 1 grams Route: IV; Rate: calculated rate; Site: left upper lp1 arm; 04:08 Follow up: IV Status: Completed infusion; IV Intake: 50ml lp1 04:08 Drug: Zithromax (azithromycin) 500 mg Route: IVPB; Infused Over: 1 hrs; Site: left lp1 upper arm; 05:13 Follow up: IV Status: Completed infusion; IV Intake: 250ml lp1 Intake: 04:00 IV: 100ml; Total: 100ml. lp1 04:08 IV: 50ml; Total: 150ml. lp1 05:13 IV: 250ml; Total: 400ml. lp1 Outcome: 04:13 Decision to Hospitalize by Provider. [facility] 04:14 Condition: stable lp1 04:14 Instructed on the need for admit. 05:19 Admitted to ICU room 5, with oxygen, on monitor, with chart, Report called to KWAN Mora lp1 05:27 Patient left the ED. lp1 Signatures: Dispatcher [employer] EDMS Aga Velasco RN RN lp1 Willie Baptiste MD MD [address] tw5 Corrections: (The following items were deleted from the chart) 02:44 02:41 BP 161 / 90; Pulse 129bpm; Resp 38bpm; Pulse Ox 100% 02 15% Non-rebreather mask; lp1 lp1 02:45 02:41 Chief complaint: EMS states: Called for patient with respiratory distress; lp1 Wheezing upon arrival of EMS; EMS ran on patient previously tonight, administered Albuterol Nebulizer, no transport; Patient hx of Lung cancer lp1 04:09 02:41 BP 161 / 90; Pulse 129bpm; Resp 38bpm; Pulse Ox 100% 02 15% Non-rebreather mask; lp1 68.04 kg; lp1 04:13 03:00 Derm: Skin is intact, Skin is diaphoretic, Skin is pale, lp1 lp1 05:48 03:00 GI: Abdomen is non-distended, lp1 lp1
--- NOTE | 2021-10-02 04:14 | EDPHYS ---
Physician Documentation [facility] Name: Roland Lam Age: 71 yrs Sex: Male : 1950 Arrival Date: 10/02/2021 Time: 02:38 Bed 3 Private MD: ED Physician Willie Baptiste HPI: 10/02 02:50 This 71 yrs old Male presents to ER via EMS with complaints of Shortness Of Breath. mh7 02:50 The patient has shortness of breath at rest. Onset: The symptoms/episode began/occurred mh7 3 day(s) ago, and became worse last night. Duration: The symptoms are continuous, and are steadily getting worse. The patient's shortness of breath is aggravated by nothing, is alleviated by nothing. Associated signs and symptoms: Pertinent positives: productive cough, Pertinent negatives: chest pain, non-productive cough, diaphoresis, dizziness, fever, hemoptysis, loss of consciousness, nausea, numbness in extremities, visual changes, vomiting. Severity of symptoms: At their worst the symptoms were severe today, in the emergency department the symptoms have improved moderately. The patient has been recently seen at the [facility] Emergency Department, this week. Per EMS called for SOB was found to have respiratory distress and wheezing.. Historical: - Allergies: 02:45 No Known Allergies; lp1 - PMHx: 02:44 CAD; COPD; Diabetes - NIDDM; High Cholesterol; THROAT CA; lp1 - Immunization history:: Adult Immunizations up to date. - Social history:: Smoking status: Patient reports the use of cigarette tobacco products, smokes one-half pack cigarettes per day. ROS: 02:50 Constitutional: Negative for fever, chills, and weight loss, Eyes: Negative for injury, mh7 pain, redness, and discharge, ENT: Negative for injury, pain, and discharge, Neck: Negative for injury, pain, and swelling, Cardiovascular: Negative for chest pain, palpitations, and edema, Abdomen/GI: Negative for abdominal pain, nausea, vomiting, diarrhea, and constipation, Back: Negative for injury and pain, : Negative for injury, bleeding, discharge, and swelling, MS/Extremity: Negative for injury and deformity, Skin: Negative for injury, rash, and discoloration, Neuro: Negative for headache, weakness, numbness, tingling, and seizure, Psych: Negative for depression, anxiety, suicide ideation, homicidal ideation, and hallucinations, Allergy/Immunology: Negative for hives, rash, and allergies, Endocrine: Negative for neck swelling, polydipsia, polyuria, polyphagia, and marked weight changes, Hematologic/Lymphatic: Negative for swollen nodes, abnormal bleeding, and unusual bruising. Exam: 02:50 Head/Face: Normocephalic, atraumatic. Eyes: Pupils equal round and reactive to light, mh7 extra-ocular motions intact. Lids and lashes normal. Conjunctiva and sclera are non-icteric and not injected. Cornea within normal limits. Periorbital areas with no swelling, redness, or edema. Neck: Trachea midline, no thyromegaly or masses palpated, and no cervical lymphadenopathy. Supple, full range of motion without nuchal rigidity, or vertebral point tenderness. No Meningismus. Chest/axilla: Normal chest wall appearance and motion. Nontender with no deformity. No lesions are appreciated. 02:50 Abdomen/GI: Soft, non-tender, with normal bowel sounds. No distension or tympany. No guarding or rebound. No evidence of tenderness throughout. Back: No spinal tenderness. No costovertebral tenderness. Full range of motion. Skin: Warm, dry with normal turgor. Normal color with no rashes, no lesions, and no evidence of cellulitis. MS/ Extremity: Pulses equal, no cyanosis. Neurovascular intact. Full, normal range of motion. 02:50 Constitutional: The patient appears alert, awake, in obvious distress, moderately distressed, obviously ill. 02:50 Cardiovascular: Rate: tachycardic, Rhythm: regular, Pulses: no pulse deficits are appreciated, Heart sounds: normal, normal S1and S2, Edema: is not appreciated, JVD: is not appreciated. 02:50 Respiratory: moderate respiratory distress is noted, Respirations: prolonged exhalation, that is moderate, Breath sounds: rhonchi, that are mild, wheezing: expiratory that is moderate, is heard diffusely, Respiratory rate: 26 02:50 Neuro: Orientation: is normal, Mentation: is normal, Memory: appropriate for stated age, Cranial nerves: is grossly normal based on the patient's age, Cerebellar function: is grossly normal based on the patient's age, Motor: is normal, Sensation: is normal, Gait: not tested. seizure activity, is not displayed by the patient, Abnormal movements: there are no abnormal movements. Vital Signs: 02:41 BP 161 / 90; Pulse 129; Resp 38; Temp 97.4(TE); Pulse Ox 100% on 15% Non-rebreather lp1 mask; Weight 68.04 kg; 03:00 BP 139 / 72; Pulse 124; Resp 21; Pulse Ox 94% on 30% BiPAP; lp1 04:00 BP 105 / 69; Pulse 117; Resp 19; Pulse Ox 98% on 30% BiPAP; lp1 05:00 BP 102 / 79; Pulse 111; Resp 16; Pulse Ox 98% on 30% BiPAP; lp1 MDM: 04:11 Differential diagnosis: Anemia Anxiety Reaction asthma, Bronchitis CHF exacerbation, mh7 Chronic Obstructive Pulmonary Disease Myocardial Infarction pneumonia, Pneumothorax Psychogenic pulmonary edema, reactive airway disease. Data reviewed: vital signs, nurses notes, EMS record, old medical records, lab test result(s), cardiac enzymes, CBC, electrolytes, EKG, radiologic studies, plain films. Data interpreted: Pulse oximetry: on BiPAP is 95 %. Interpretation: acceptable. Counseling: I had a detailed discussion with the patient and/or guardian regarding: the historical points, exam findings, and any diagnostic results supporting the discharge/admit diagnosis, the presence of at least one elevated blood pressure reading (>120/80) during this emergency department visit, lab results, radiology results, the need for further work-up and treatment in the hospital. Response to treatment: the patient's symptoms have mildly improved after treatment. 04:13 Patient medically screened. 10/02 02:45 Order name: Basic Metabolic Panel; Complete Time: 03:55 10/02 02:45 Order name: CBC with Diff; Complete Time: 03:39 10/02 02:45 Order name: LFT's; Complete Time: 03:55 10/02 02:45 Order name: Magnesium; Complete Time: 03:55 10/02 02:45 Order name: NT PRO-BNP; Complete Time: 03:55 10/02 02:45 Order name: PT-INR; Complete Time: 03:39 10/02 02:45 Order name: Troponin HS; Complete Time: 03:55 10/02 02:46 Order name: Blood Culture Adult (2) [facility] 10/02 02:46 Order name: COVID-19/FLU A+B (Document "Date of Onset" if Symptomatic); Complete Time: 04:58 10/02 02:47 Order name: Arterial Blood Gas; Complete Time: 03:05 [facility] 10/02 02:49 Order name: Lactate; Complete Time: 03:55 [facility] 10/02 02:49 Order name: Procalcitonin; Complete Time: 03:55 [facility] 10/02 04:04 Order name: ABG la1 10/02 04:23 Order name: ABG Arterial Blood Gas; Complete Time: 04:58 EDMS 10/02 02:45 Order name: XRAY Chest (1 view) [facility] 10/02 02:45 Order name: EKG; Complete Time: 02:46 [facility] 10/02 02:45 Order name: Cardiac monitoring; Complete Time: 02:47 [facility] 10/02 02:45 Order name: EKG - Nurse/Tech; Complete Time: 03:02 [facility] 10/02 02:45 Order name: IV Saline Lock; Complete Time: 03:02 [facility] 10/02 02:45 Order name: O2 Per Protocol; Complete Time: 02:47 10/02 02:45 Order name: O2 Sat Monitoring; Complete Time: 02:47 7 Administered Medications: 02:46 Drug: SOLU-Medrol (methylPrednisoLONE) 125 mg Route: IVP; Site: left hand; tw5 03:30 Follow up: Response: No adverse reaction lp1 02:48 CANCELLED (Physician Discretion): Albuterol 2.5 mg Inhalation once lp1 02:48 CANCELLED (Physician Discretion): AtroVENT (ipratropium) Aerosol 0.5 mg Inhalation once lp1 02:48 Drug: DuoNeb (albuterol 2.5 mg, ipratropium 0.5 mg) (3:1) (2.5 mg - 0.5 mg) 3 ml Route: lp1 Nebulizer; 03:45 Follow up: Response: No adverse reaction lp1 03:02 Drug: Magnesium Sulfate 1 grams Route: IVPB; Infused Over: 1 hrs; Site: left upper arm; tw5 04:00 Follow up: IV Status: Completed infusion; IV Intake: 100ml lp1 03:45 Drug: Rocephin (cefTRIAXone) 1 grams Route: IV; Rate: calculated rate; Site: left upper lp1 arm; 04:08 Follow up: IV Status: Completed infusion; IV Intake: 50ml lp1 04:08 Drug: Zithromax (azithromycin) 500 mg Route: IVPB; Infused Over: 1 hrs; Site: left lp1 upper arm; 05:13 Follow up: IV Status: Completed infusion; IV Intake: 250ml lp1 Disposition Summary: 10/02/21 04:13 Hospitalization Ordered Hospitalization Status: Inpatient Admission [facility] Provider: Steve Gaming [facility] Condition: Fair [facility] Problem: an acute exacerbation [facility] Symptoms: have improved [facility] Bed/Room Type: Standard [facility] Location: Intensive Care Unit(10/02/21 04:51) cg Room Assignment: 5-(10/02/21 04:51) Diagnosis - COPD/ Chronic obstructive pulmonary disease with (acute) exacerbation [facility] Forms: - Medication Reconciliation Form [facility] - SBAR form [facility] Signatures: Dispatcher [employer] EDMS Aga Velasco RN RN lp1 Piero Stevens, UROGYNECOLOGY PHYSICIAN-C UROGYNECOLOGY PHYSICIAN-[facility] [place]1 Janna De La Rosa RN RN cg Willie Baptiste MD MD 7 Rita Groves tw5 Corrections: (The following items were deleted from the chart) 02:48 02:45 Albuterol 2.5 mg Inhalation once ordered. [facility] lp1 02:48 02:45 AtroVENT (ipratropium) Aerosol 0.5 mg Inhalation once ordered. [facility] lp1 02:48 02:45 Labs collected and sent ordered. [facility] lp1 04:51 04:13 Telemetry/MedSurg (Inpatient) [facility] cg 04:51 04:13 [facility] cg
[2021-10-02 04:23] LABS: Arterial Blood Carboxyhemoglob 1.9 % (0-1.5); Blood Gas Oxyhemoglobin 89.9 % (94-97); Blood O2 Saturation 92.4 % (92-98.5)
[2021-10-02 05:56] VITALS: BMI 22.1
[2021-10-02] MEDS ORDERED: ALBUTEROL 2.5 MG/3 ML NEB SOL NEB PRN (06:05)
[2021-10-02] MEDS ORDERED: NA CHLORIDE 0.9% 1,000 ML IV SCH (06:05)
[2021-10-02] MEDS ORDERED: ACETAMINOPHEN 500 MG TAB FT PRN (06:05)
[2021-10-02] MEDS ORDERED: IPRATROPIUM BROM 0.5MG/2.5ML NEB PRN (06:05)
[2021-10-02] MEDS: INSULIN -REGULAR HUMAN 50 UNIT/0.5 ML ML SQ SCH ×4 (07:30→20:54)
[2021-10-02] MEDS ORDERED: AZITHROMYCIN IV 500 MG in NA CHLORIDE 0.9% 250 ML IVPB SCH ×2 (09:00→21:00)
[2021-10-02] MEDS ORDERED: CEFTRIAXONE 1,000 MG in NA CHLORIDE 0.9% 50 ML IVPB SCH ×2 (09:00→21:00)
[2021-10-02] MEDS: METHYLPREDNISOLONE 40 MG INJ IV SCH ×2 (09:09→16:13)
[2021-10-02] MEDS: ENOXAPARIN 40 MG/0.4 ML SQ SCH (09:09)
[2021-10-02] MEDS: ARFORMOTEROL TARTRATE 15 MCG/2 ML VIAL.NEB NEB SCH ×2 (09:21→19:55)
--- NOTE | 2021-10-02 10:33 | P.CNS ---
Date of Consult: 10/02/21 Reason for Consult: Respiratory distress Chief Complaint: COPD exacerbation History of Present Illness: Patient is patient is 71 years of age history of COPD metabolic syndrome laryngeal cancer the PEG tube in place admitted with respiratory distress hypoxemia hypercapnia is currently on high flow plus some chest congestion noted currently on chemoradiation pending PET scan/having some thick secretions Allergies No Known Allergies Allergy (Verified 03/28/21 08:07) Home Medications: Albuterol Inhaler [Ventolin Inhaler*] 2 puff IH Q6H PRN 03/24/21 Aspirin [Aspirin EC 81 MG] 81 mg FT DAILY 03/24/21 Budesonide/Formoterol Fumarate [Symbicort 80-4.5 Mcg Inhaler] 2 puff IH BID 03/24/21 Clopidogrel Bisulfate [Plavix*] 75 mg FT DAILY 03/24/21 Fenofibrate 50 mg FT DAILY 03/24/21 Ferrous Sulfate [Iron] 325 mg FT DAILY 03/24/21 Metformin HCl [Glucophage*] 500 mg FT BID PRN 03/24/21 Amlodipine [Norvasc*] 10 mg FT DAILY 09/10/21 Cetirizine HCl 10 mg FT DAILY 09/10/21 Clonidine HCl [Clonidine HCl ER] 0.1 mg FT PRN PRN 09/10/21 Folic Acid 1 mg FT DAILY 09/10/21 Gabapentin 300 mg FT TID 09/10/21 Lactose-Reduced Food [Ensure Complete] 375 ml FT SEECOM 09/10/21 Lansoprazole 30 mg FT DAILY 09/10/21 Magnesium Oxide 500 mg FT DAILY 09/10/21 Nicotine [Nicoderm Cq] 1 each TD DAILY 09/10/21 Polyethyl Gly 3350 [Glycolax*] 17 gm FT TID 09/10/21 Prochlorperazine Maleate [Compazine] 5 mg FT Q4H PRN 09/10/21 Rosuvastatin Calcium 40 mg FT BEDTIME 09/10/21 Thiamine HCl 100 mg FT DAILY 09/10/21 Tramadol HCl [Ultram] 50 mg FT Q4H PRN 09/10/21 ondansetron HCL [Ondansetron HCl] 8 mg FT Q8H PRN 09/10/21 - Past Medical/Surgical History Diabetic: Yes -: DM type II -: Hypertension -: Laryngeal cancer -: Peripheral vascular disease -: Iliac artery stent Psychosocial/ Personal History: Patient lives at home with his - Family History Mother Medical History: Cancer - Social History Smoking Status: Current every day smoker Alcohol use: No CD- Drugs: No Place of Residence: Home Review of Systems 10-point ROS is otherwise unremarkable General: Weakness Respiratory: Cough, Shortness of Breath Physical Examination Temp Pulse Resp BP Pulse Ox 97 F 109 H 20 107/64 99 10/02/21 08:00 10/02/21 09:00 10/02/21 09:00 10/02/21 09:00 10/02/21 09:00 General: Alert, Oriented x3, Moderate distress Respiratory: Expiratory wheezes Cardiovascular: Regular rate/rhythm, Normal S1 S2, Edema Gastrointestinal: Normal bowel sounds, Soft and benign Laboratory Data (last 24 hrs) 10/02/21 02:40: PT 11.3, INR 1.03 10/02/21 02:40: WBC 13.4 H D, Hgb 9.8 L, Hct 30.5 L, Plt Count 360 D 10/02/21 02:40: Sodium 130 L, Potassium 4.6, BUN 26 H, Creatinine 0.80, Glucose 168 H, Magnesium 2.1, Total Bilirubin 0.3, AST 15, ALT 18, Alkaline Phosphatase 78 - Problems (1) COPD exacerbation Current Visit: No Status: Acute Plan: Patient is 71 years of age with a history of laryngeal cancer metabolic syndrome admitted with respiratory distress hypoxemia hypercapnia also has a PEG tube PET scan is pending continue with bronchodilators add IV levofloxacin chest x-ray is clear chemistries reviewed he is not currently on any chemo or radiation patient is currently hypoxic is on high flow oxygen also consult Dr. Coleman his ENT physician/patient is high risk for thromboembolism ordered a CT pulmonary angiogram including CT of the neck with and without contrast to evaluate for obstruction
--- NOTE | 2021-10-02 12:45 | P.PN ---
Subjective Date of Service: 10/02/21 Chief Complaint: COPD exacerbation Subjective: No new changes, No C/O voiced (As of breath improving, weaned off BiPAP on Vapotherm now Follow CT chest to rule out pulmonary embolism as well as aspiration pneumonia as patient reportedly has been trying to eat via oral intake despite placed PEG tube 2 weeks ago Appreciate pulmonary consult Continue other management for now) Physical Examination - Vital Signs Temperature: 97 F Blood Pressure: 107/64 Pulse: 109 Respirations: 20 Pulse Ox (%): 99 - Studies Laboratory Data (last 24 hrs) 10/02/21 02:40: PT 11.3, INR 1.03 10/02/21 02:40: WBC 13.4 H D, Hgb 9.8 L, Hct 30.5 L, Plt Count 360 D 10/02/21 02:40: Sodium 130 L, Potassium 4.6, BUN 26 H, Creatinine 0.80, Glucose 168 H, Magnesium 2.1, Total Bilirubin 0.3, AST 15, ALT 18, Alkaline Phosphatase 78
[2021-10-02] MEDS: GLUCERNA 1.5 CAL 1,000 ML BOT FT SCH ×3 (13:00→20:53)
--- NOTE | 2021-10-02 13:24 | RAD REPORT ---
EXAM DESCRIPTION: CT - Chest For Pe Angio - 10/02/2021 12:38 pm CLINICAL HISTORY: Chest pain. Rule out PE COMPARISON: Chest For Pe Angio dated 09/05/2021 TECHNIQUE: CT angiogram of the pulmonary arteries was performed with MIP. All CT scans are performed using dose optimization technique as appropriate and may include automated exposure control or mA/KV adjustment according to patient size. FINDINGS: No evidence of pulmonary thromboembolism. No acute aortic finding demonstrated. Prominent emphysema is seen with subsegmental atelectasis in both lung bases posteriorly. No significant pericardial or pleural fluid. Mild to moderate thoracic degenerative changes. IMPRESSION: No evidence of pulmonary thromboembolism. Moderate COPD with atelectasis both lung bases.
[2021-10-02] MEDS: Levofloxacin 750mg IV 750 MG/150 ML BAG IV SCH (13:30)
--- NOTE | 2021-10-02 13:31 | RAD REPORT ---
EXAM DESCRIPTION: CT - Soft Tissue Neck W/Contr CLINICAL HISTORY: History of laryngeal cancer Neck pain, swelling COMPARISON: Soft Tissue Neck Wo Contr dated 09/16/[address] scans are performed using dose optimization technique as appropriate and may includ e automated exposure control or mA/KV adjustment according to patient size. FINDINGS: Prominent soft tissue thickening is seen in the supraglottic larynx is abnormal soft tissu e involves both the left and the right side and measures approximately 17 mm by 35 mm. This has a sim ilar appearance to the most recent comparative study and may be related to prior therapy/treatment. I t is difficult to evaluate for residual tumor within this region by CT. Thyroid cartilage appears intact. No bulky adenopathy seen in neck. Normal thyroid gland. Symmetric s alivary glands. IMPRESSION: Prominent soft tissue thickening in a largely symmetric fashion is seen supraglottic lar ynx as detailed. No bulky lymphadenopathy is seen in the neck. Follow-up PET-CT imaging could be obta ined to assess for metabolic activity within this abnormal laryngeal soft tissue.
[2021-10-02 13:38] LABS: Urine Appearance Clear (Clear); Urine Bilirubin Negative (Negative); Urine Blood Negative (Negative); Urine Color Yellow (Yellow); Urine Glucose Negative (Negative); Urine Protein Negative (Negative); Urine Specific Gravity 1.015 (1.005-1.030); Urine Urobilinogen 0.2 mg/dL (0.2-1.0)
[2021-10-02 13:39] LABS: Urine Microscopic Reflex NO UMIC
[2021-10-02] MEDS: IPRATROPIUM BROM 0.5MG/2.5ML NEB SCH ×2 (14:31→19:55)
[2021-10-02] MEDS ORDERED: MELATONIN 5 MG TABLET PO PRN (20:06)
[2021-10-02] MEDS: MORPHINE 2 MG/ML SYR IV PRN (21:54)
[2021-10-02] MEDS ORDERED: ALPRAZOLAM 0.25 MG TABLET PO PRN (23:45)
[2021-10-03] MEDS: METHYLPREDNISOLONE 40 MG INJ IV SCH ×2 (00:45→09:19)
[2021-10-03] MEDS: IPRATROPIUM BROM 0.5MG/2.5ML NEB SCH ×4 (01:45→20:40)
[2021-10-03 05:40] LABS: Absolute Lymphocytes (CBC) 0.4 K/uL (0.7-4.9); Hematocrit 24.5 % (39.6-49.0); Lymphocytes % 7.3 % (15.3-44.8); RBC Red Blood Cell Count 3.02 M/uL (4.33-5.43)
[2021-10-03 06:02] LABS: ALT/SGPT 16 U/L (12-78); AST/SGOT 18 U/L (15-37); Albumin 2.5 g/dL (3.4-5.0); Alkaline Phosphatase 56 U/L (45-117); BUN Blood Urea Nitrogen 24 mg/dL (7-18); Bicarbonate 31 mmol/L (21-32); Bilirubin Total 0.3 mg/dL (0.2-1.0); Glomerular Filtration Rate > 90 mL/min (=/>90); Glucose Level 175 mg/dL (74-106); Magnesium 1.9 mg/dL (1.8-2.4); Potassium 4.1 mmol/L (3.5-5.1); Protein, Total 5.8 g/dL (6.4-8.2); Sodium Level 135 mmol/L (136-145)
[2021-10-03] MEDS: ARFORMOTEROL TARTRATE 15 MCG/2 ML VIAL.NEB NEB SCH ×2 (07:27→20:40)
[2021-10-03] MEDS: INSULIN -REGULAR HUMAN 50 UNIT/0.5 ML ML SQ SCH ×4 (07:30→21:00)
[2021-10-03] MEDS: GLUCERNA 1.5 CAL 1,000 ML BOT FT SCH ×5 (09:00→21:21)
[2021-10-03] MEDS: predniSONE 20 MG TAB PO SCH ×2 (09:00→21:20)
[2021-10-03] MEDS: ENOXAPARIN 40 MG/0.4 ML SQ SCH (09:19)
[2021-10-03] MEDS: Levofloxacin 750mg IV 750 MG/150 ML BAG IV SCH (11:47)
--- NOTE | 2021-10-03 12:08 | P.PN ---
Subjective Date of Service: 10/03/21 Chief Complaint: COPD exacerbation Subjective: Improving (Patient is doing a little better) Review of Systems General: Weakness Respiratory: Cough, Shortness of Breath Physical Examination - Vital Signs Temperature: 97.0 F Blood Pressure: 122/58 Pulse: 89 Respirations: 18 Pulse Ox (%): 97 - Physical Exam General: Alert, Oriented x3 Respiratory: Diminished, Expiratory wheezes Cardiovascular: No edema, Normal S1 S2 Assessment And Plan - Current Problems (Diagnosis) (1) COPD exacerbation Current Visit: No Status: Acute Plan: Patient is doing better improving no evidence of pulmonary emboli titrate his O2 down plan for discharge most likely COPD exacerbation CT scan of the neck no change and to discharge on levofloxacin 750 daily for 7 days in addition to low- dose prednisone patient has Symbicort at home scheduled to follow-up with MD Dorantes for a PET scan to wean down his oxygen
--- NOTE | 2021-10-03 13:29 | RAD REPORT ---
EXAM DESCRIPTION: Chest Single View 10/02/2021 4:02 AM CDT CLINICAL HISTORY: 71 years, Male, SOB COMPARISON: None. FINDINGS: Single view of the chest was obtained portable. No prior films are available for compariso n. The cardiomediastinal silhouette demonstrate to be unremarkable. The heart is not enlarged. The thoracic aorta demonstrate minimal intimal calcification. Costophrenic angles are sharp. Minimal subs egmental atelectatic changes are seen within the left lung base. No areas of consolidation or masses are seen. The rest of the soft tissue and bony structures demonstrate to be unremarkable. IMPRESSION: Minimal subsegmental atelectatic changes left lung base. No focal areas of acute airspace disease. Electronically signed by: Leobardo Oneil MD 10/02/2021 4:02 AM CDT Due to temporary technical issues with the PACS/Fluency reporting system, reports are being signed by the in house radiologist without review as a courtesy to ensure prompt reporting. The interpreting r adiologist is fully responsible for the content of the report.
--- NOTE | 2021-10-03 14:44 | P.PN ---
Date of Service: 10/03/21 Subjective Patient's respiratory status has improved. Continue tube feedings with nutritional support Physical Examination - Physical Exam General: Alert, In no apparent distress, Oriented x3 Respiratory: Diminished, Expiratory wheezes, Other (Moderate respiratory distresson BiPAP) Cardiovascular: Regular rate/rhythm, Normal S1 S2 Capillary refill: <2 Seconds Gastrointestinal: Normal bowel sounds, No tenderness, Other (PEG tube in place) Neurological: Normal strength at 5/5 x4 extr, Normal tone, Normal affect Assessment and Plan - Plan Assessment: Acute hypoxic/hypercapnic respiratory failure secondary to COPD with exacerbation Laryngeal cancer with PEG tube Diabetes mellitus type [id number] Hypertension Mild hyponatremia normocytic anemia Plan: Acute hypoxic/hypercapnic respiratory failure secondary to COPD with exacerbation: Continue BiPAP, Brovana, as needed nebulizer treatments, IV steroids, supplemental oxygen as needed. Pulmonology consulted leukocytosis noted, patient on Rocephin/Zithromax currently. Sputum culture ordered. Laryngeal cancer with PEG tube: Stable, n.p.o. continue tube feeds. Patient not currently on any chemo/radiation pending PET scan for further evaluation Diabetes mellitus [id number]: ACH S Accu-Chek, sliding scale insulin Hypertension: Continue home medication Mild hyponatremia: Continue gentle IV fluids normocytic anemia: Likely anemia of chronic disease/malignancy, transfuse to maintain hemoglobin greater than 7. DVT PPX:Lovenox Code status:Full Discharge Plan: Home Plan to discharge in: 72 Hours
[2021-10-03] MEDS ORDERED: Clonidine Hcl [Clonidine Hcl Er] 0.1 MG Tab.Er.12h FT PRN (17:13)
[2021-10-03] MEDS ORDERED: TRAMADOL HCL 50 MG TAB FT PRN (17:13)
[2021-10-03] MEDS ORDERED: METFORMIN HCL 500 MG TAB FT PRN (17:13)
[2021-10-03] MEDS ORDERED: LACTOSE REDUCED FOOD FT SCH (17:15)
[2021-10-03] MEDS ORDERED: ONDANSETRON 4 MG (ODT) TAB FT PRN (17:37)
[2021-10-03] MEDS ORDERED: ALBUTEROL 90 MCG INHALER IH PRN (17:42)
--- NOTE | 2021-10-03 18:36 | P.CNS ---
Date of Consult: 10/03/21 Reason for Consult: Hyponatremia Requesting Physician: Steve Gaming Chief Complaint: COPD exacerbation History of Present Illness: 71-year-old male patient with history of COPD, diabetes mellitus type 2not insulin-dependent, throat cancer with aspiration risk/PEG tube in place, hypertension presents emergency department in respiratory distress. Patient was seen here in the emergency department last Sunday and Sunday for COPD exacerbation was stable for discharge at that time but has been getting worse over the course of the last 24 hours. Patient arrived to the ER on high flow oxygen tachypneic and dyspneic he was placed on BiPAP upon arrival. ABG demonstrated hypercapnic respiratory failure his labs were significant for leukocytosis, normocytic anemia, mild hyponatremia. at bedside reports patient is high risk for aspiration and for that reason has a PEG tube, he is not currently on any chemo or radiation, he is pending a repeat PET scan to determine his cancer status. Nephrology was asked to consult pt for hyponaremia management. Allergies No Known Allergies Allergy (Verified 03/28/21 08:07) Home Medications: Albuterol Inhaler [Ventolin Inhaler*] 2 puff IH Q6H PRN 03/24/21 Aspirin [Aspirin EC 81 MG] 81 mg FT DAILY 03/24/21 Budesonide/Formoterol Fumarate [Symbicort 80-4.5 Mcg Inhaler] 2 puff IH BID 03/24/21 Clopidogrel Bisulfate [Plavix*] 75 mg FT DAILY 03/24/21 Fenofibrate 50 mg FT DAILY 03/24/21 Ferrous Sulfate [Iron] 325 mg FT DAILY 03/24/21 Metformin HCl [Glucophage*] 500 mg FT BID PRN 03/24/21 Amlodipine [Norvasc*] 10 mg FT DAILY 09/10/21 Cetirizine HCl 10 mg FT DAILY 09/10/21 Clonidine HCl [Clonidine HCl ER] 0.1 mg FT PRN PRN 09/10/21 Folic Acid 1 mg FT DAILY 09/10/21 Gabapentin 300 mg FT TID 09/10/21 Lactose-Reduced Food [Ensure Complete] 375 ml FT SEECOM 09/10/21 Lansoprazole 30 mg FT DAILY 09/10/21 Magnesium Oxide 500 mg FT DAILY 09/10/21 Nicotine [Nicoderm Cq] 1 each TD DAILY 09/10/21 Polyethyl Gly 3350 [Glycolax*] 17 gm FT TID 09/10/21 Prochlorperazine Maleate [Compazine] 5 mg FT Q4H PRN 09/10/21 Rosuvastatin Calcium 40 mg FT BEDTIME 09/10/21 Thiamine HCl 100 mg FT DAILY 09/10/21 Tramadol HCl [Ultram] 50 mg FT Q4H PRN 09/10/21 ondansetron HCL [Ondansetron HCl] 8 mg FT Q8H PRN 09/10/21 levoFLOXacin [Levaquin*] 750 mg PO DAILY 7 Days #7 tab 10/03/21 predniSONE [Deltasone*] 10 mg PO BID 10 Days #20 tab 10/03/21 - Past Medical/Surgical History Diabetic: Yes -: DM type II -: Hypertension -: Laryngeal cancer -: Peripheral vascular disease -: Iliac artery stent Psychosocial/ Personal History: Patient lives at home with his - Family History Mother Medical History: Cancer - Social History Smoking Status: Current every day smoker Alcohol use: No CD- Drugs: No Place of Residence: Home Review of Systems General: Unremarkable Eyes: Unremarkable Respiratory: Shortness of Breath, SOB with Excertion Cardiovascular: Unremarkable Gastrointestinal: Unremarkable Genitourinary: Unremarkable Musculoskeletal: Unremarkable Neurological: Unremarkable Physical Examination Temp Pulse Resp BP Pulse Ox 97.3 F 93 H 18 130/62 95 10/03/21 16:00 10/03/21 16:00 10/03/21 16:00 10/03/21 16:00 10/03/21 16:00 General: Alert, Oriented x3 HEENT: Atraumatic, Normocephalic Neck: Supple Respiratory: Normal air movement Cardiovascular: Regular rate/rhythm, Normal S1 S2 Gastrointestinal: Soft and benign Musculoskeletal: No swelling Neurological: Normal speech, Normal strength at 5/5 x4 extr Conclusions/Impression: COPD exacerbation Pneumonia Hypertension Hyperlipidemia Hyponatremiamoderate Plan: Sodium is much improved since admission. Values now 135 from 130 on admission. Will follow closely. 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 Follow sodium on daily basis.
[2021-10-03] MEDS: ROSUVASTATIN CALCIUM 40 MG FT SCH (21:00)
[2021-10-03] MEDS: POLYETHYL GLY 3350 17 GM/DOSE FT SCH (21:00)
[2021-10-03] MEDS ORDERED: ALPRAZOLAM 0.5 MG TABLET PO SCH (21:00)
[2021-10-03] MEDS: Budesonide/Formoterol Fumarate [Symbicort 80-4.5 Mcg Inhaler] 10.2 GM H IH SCH (21:00)
[2021-10-03] MEDS: GABAPENTIN 300 MG CAP FT SCH (21:20)
[2021-10-03] MEDS: FAMOTIDINE 20 MG TAB PO SCH (21:20)
[2021-10-03] MEDS: ONDANSETRON 4 MG/2 ML VIAL IV PRN (21:20)
[2021-10-04] MEDS: IPRATROPIUM BROM 0.5MG/2.5ML NEB SCH ×4 (02:00→19:45)
[2021-10-04 05:50] LABS: Absolute Lymphocytes (CBC) 0.6 K/uL (0.7-4.9); Hematocrit 26.6 % (39.6-49.0); Lymphocytes % 12.8 % (15.3-44.8); MPV 8.1 fL (7.6-11.3); RBC Red Blood Cell Count 3.25 M/uL (4.33-5.43)
[2021-10-04 06:10] LABS: ALT/SGPT 18 U/L (12-78); AST/SGOT 17 U/L (15-37); Albumin 2.6 g/dL (3.4-5.0); Alkaline Phosphatase 55 U/L (45-117); BUN Blood Urea Nitrogen 24 mg/dL (7-18); Bicarbonate 30 mmol/L (21-32); Bilirubin Total 0.3 mg/dL (0.2-1.0); Glomerular Filtration Rate > 90 mL/min (=/>90); Glucose Level 163 mg/dL (74-106); Magnesium 1.9 mg/dL (1.8-2.4); NT PRO-BNP 7602 pg/mL (<125); Sodium Level 132 mmol/L (136-145)
[2021-10-04] MEDS: INSULIN -REGULAR HUMAN 50 UNIT/0.5 ML ML SQ SCH ×4 (07:30→20:27)
[2021-10-04] MEDS ORDERED: FUROSEMIDE 20 MG/ 2ML VIAL IV ONE (08:00)
[2021-10-04] MEDS: ARFORMOTEROL TARTRATE 15 MCG/2 ML VIAL.NEB NEB SCH ×2 (08:01→19:45)
[2021-10-04] MEDS: Budesonide/Formoterol Fumarate [Symbicort 80-4.5 Mcg Inhaler] 10.2 GM H IH SCH ×2 (08:44→20:27)
--- NOTE | 2021-10-04 08:48 | RAD REPORT ---
EXAM DESCRIPTION: RAD - Chest Single View - 10/04/2021 7:12 am CLINICAL HISTORY: pneumonia Chest pain. COMPARISON: Chest Single View dated 10/02/2021; Chest Single View dated 09/30/2021; Chest Single View d ated 09/28/2021; Chest Pa And Lat (2 Views) dated 09/16/2021 FINDINGS: Portable technique limits examination quality. The lungs are grossly clear. The heart is normal in size. No displaced fractures. IMPRESSION: No acute intrathoracic process suspected.
[2021-10-04] MEDS: GABAPENTIN 300 MG CAP FT SCH ×3 (08:55→20:26)
[2021-10-04] MEDS: GLUCERNA 1.5 CAL 1,000 ML BOT FT SCH ×4 (08:56→20:26)
[2021-10-04] MEDS ORDERED: MAGNESIUM OXIDE 500 MG FT SCH (09:00)
[2021-10-04] MEDS ORDERED: THIAMINE HCL 100 MG TABLET FT SCH (09:00)
[2021-10-04] MEDS ORDERED: FOLIC ACID 1 MG TABLET FT SCH (09:00)
[2021-10-04] MEDS: predniSONE 20 MG TAB PO SCH ×2 (09:00→20:26)
[2021-10-04] MEDS ORDERED: AMLODIPINE 10 MG TAB FT SCH (09:00)
[2021-10-04] MEDS: POLYETHYL GLY 3350 17 GM/DOSE FT SCH ×3 (09:00→20:27)
[2021-10-04] MEDS ORDERED: CLOPIDOGREL 75 MG TABLET FT SCH (09:00)
[2021-10-04] MEDS ORDERED: FENOFIBRATE 50 MG FT SCH (09:00)
[2021-10-04] MEDS ORDERED: Pantoprazole (granules) 40 MG/BLIST PACKET FT SCH (09:00)
[2021-10-04] MEDS ORDERED: NICOTINE 7 MG/PAT TD SCH (09:00)
[2021-10-04] MEDS ORDERED: CETIRIZINE HCL 5 MG TABLET FT SCH (09:00)
[2021-10-04] MEDS: ENOXAPARIN 40 MG/0.4 ML SQ SCH (09:01)
[2021-10-04] MEDS: ONDANSETRON 4 MG/2 ML VIAL IV PRN (09:07)
[2021-10-04] MEDS: Levofloxacin 750mg IV 750 MG/150 ML BAG IV SCH (12:06)
[2021-10-04 13:29] LABS: Arterial Blood Carboxyhemoglob 2.1 % (0-1.5); Blood O2 Saturation 94.9 % (92-98.5)
[2021-10-04] MEDS ORDERED: ALPRAZOLAM 0.5 MG TABLET PO PRN (20:09)
[2021-10-04] MEDS: MORPHINE 2 MG/ML SYR IV PRN (20:25)
[2021-10-04] MEDS: FAMOTIDINE 20 MG TAB PO SCH (20:26)
[2021-10-04] MEDS: ROSUVASTATIN CALCIUM 40 MG FT SCH (20:27)
[2021-10-05] MEDS: IPRATROPIUM BROM 0.5MG/2.5ML NEB SCH ×2 (01:10→07:37)
[2021-10-05 04:25] VITALS: BP 136/74; TEMP 97.6
[2021-10-05 04:46] LABS: Absolute Lymphocytes (CBC) 0.6 K/uL (0.7-4.9); Hematocrit 28.2 % (39.6-49.0); Lymphocytes % 11.9 % (15.3-44.8); MPV 7.8 fL (7.6-11.3); RBC Red Blood Cell Count 3.46 M/uL (4.33-5.43)
[2021-10-05 05:03] LABS: ALT/SGPT 19 U/L (12-78); AST/SGOT 17 U/L (15-37); Albumin 2.8 g/dL (3.4-5.0); Alkaline Phosphatase 58 U/L (45-117); BUN Blood Urea Nitrogen 26 mg/dL (7-18); Bicarbonate 35 mmol/L (21-32); Bilirubin Total 0.3 mg/dL (0.2-1.0); Glomerular Filtration Rate > 90 mL/min (=/>90); Glucose Level 167 mg/dL (74-106); Potassium 4.4 mmol/L (3.5-5.1); Protein, Total 6.1 g/dL (6.4-8.2); Sodium Level 133 mmol/L (136-145)
[2021-10-05 05:29] LABS: Blood Morphology Comment NOTED (NOT SEEN); Hypochromasia 1+; Platelet Estimate ADEQ
[2021-10-05] MEDS: ARFORMOTEROL TARTRATE 15 MCG/2 ML VIAL.NEB NEB SCH (07:37)
[2021-10-05 08:11] VITALS: O2SAT 96
--- NOTE | 2021-10-28 03:58 | P.PN ---
Date of Service: 10/04/21 Subjective Patient clinical symptoms continue to improve. Wean down oxygen level. Physical Examination - Physical Exam General: Alert, In no apparent distress, Oriented x3 Respiratory: Diminished, Expiratory wheezes, Other (Moderate respiratory distresson BiPAP) Cardiovascular: Regular rate/rhythm, Normal S1 S2 Capillary refill: <2 Seconds Gastrointestinal: Normal bowel sounds, No tenderness, Other (PEG tube in place) Neurological: Normal strength at 5/5 x4 extr, Normal tone, Normal affect Assessment and Plan - Plan Assessment: Acute hypoxic/hypercapnic respiratory failure secondary to COPD with exacerbation Laryngeal cancer with PEG tube Diabetes mellitus type [id number] Hypertension Mild hyponatremia normocytic anemia Plan: Acute hypoxic/hypercapnic respiratory failure secondary to COPD with e xacerbation: Laryngeal cancer with PEG tube: S Diabetes mellitus [id number]: Hypertension: Mild hyponatremia: normocytic anemia: -Continue BiPAP, Brovana, as needed nebulizer treatments, IV steroids, supplemental oxygen as needed. -Pulmonology consulted -Rocephin/Zithromax currently -Sputum culture ordered. -n.p.o. continue tube feeds. -Patient not currently on any chemo/radiation pending PET scan for further evaluation -Continue gentle IV fluids -anemia of chronic disease/malignancy -transfuse to maintain hemoglobin greater than 7.
--- NOTE | 2021-10-28 04:00 | P.DS ---
Discharge Date: 10/05/21 Disposition: [facility] HOME/HOME HEALTH CARE Reason for Admission: COPD exacerbation Brief History of Present Illness: 71-year-old male patient with history of COPD, diabetes mellitus type 2not insulin-dependent, throat cancer with aspiration risk/PEG tube in place, hypertension presents emergency department in respiratory distress. Patient was seen here in the emergency department last Sunday and Sunday for COPD exacerbation was stable for discharge at that time but has been getting worse over the course of the last 24 hours. Patient arrived to the ER on high flow oxygen tachypneic and dyspneic he was placed on BiPAP upon arrival. ABG demonstrated hypercapnic respiratory failure his labs were significant for leukocytosis, normocytic anemia, mild hyponatremia. at bedside reports patient is high risk for aspiration and for that reason has a PEG tube, he is not currently on any chemo or radiation, he is pending a repeat PET scan to determine his cancer status. With a 2 admit for further evaluation and management of acute hypercapnic respiratory failure/COPD exacerbation. Hospital Course: Patient was treated with steroids and neb treatments and his clinical symptoms have improved. We will go ahead and wean down his oxygen saturations. Anticipate discharge today with outpatient follow-up with pulmonary. We will arrange for outpatient home health with [facility]. Vital Signs/Physical Exam: Temp Pulse Resp BP Pulse Ox 97.6 F 87 18 136/74 99 10/05/21 04:00 10/05/21 04:00 10/05/21 04:00 10/05/21 04:00 10/05/21 04:00 General: Alert, In no apparent distress, Oriented x3 Laboratory Data at Discharge: WBC 5.2 K/uL (4.3-10.9) 10/05/21 04:19 Hgb 9.1 g/dL (13.6-17.9) L 10/05/21 04:19 Hct 28.2 % (39.6-49.0) L 10/05/21 04:19 Plt Count 261 K/uL (152-406) 10/05/21 04:19 PT 11.3 SECONDS (9.5-12.5) 10/02/21 02:40 INR 1.03 10/02/21 02:40 Sodium 133 mmol/L (136-145) L 10/05/21 04:19 Potassium 4.4 mmol/L (3.5-5.1) 10/05/21 04:19 BUN 26 mg/dL (7-18) H 10/05/21 04:19 Creatinine 0.69 mg/dL (0.55-1.3) 10/05/21 04:19 Glucose 167 mg/dL (74-106) H 10/05/21 04:19 Magnesium 2.0 mg/dL (1.8-2.4) 10/05/21 04:19 Total Bilirubin 0.3 mg/dL (0.2-1.0) 10/05/21 04:19 AST 17 U/L (15-37) 10/05/21 04:19 ALT 19 U/L (12-78) 10/05/21 04:19 Alkaline Phosphatase 58 U/L (45-117) 10/05/21 04:19 Home Medications: Albuterol Inhaler [Ventolin Inhaler*] 2 puff IH Q6H PRN 03/24/21 Aspirin [Aspirin EC 81 MG] 81 mg FT DAILY 03/24/21 Budesonide/Formoterol Fumarate [Symbicort 80-4.5 Mcg Inhaler] 2 puff IH BID 03/24/21 Clopidogrel Bisulfate [Plavix*] 75 mg FT DAILY 03/24/21 Fenofibrate 50 mg FT DAILY 03/24/21 Ferrous Sulfate [Iron] 325 mg FT DAILY 03/24/21 Metformin HCl [Glucophage*] 500 mg FT BID PRN 03/24/21 Amlodipine [Norvasc*] 10 mg FT DAILY 09/10/21 Cetirizine HCl 10 mg FT DAILY 09/10/21 Clonidine HCl [Clonidine HCl ER] 0.1 mg FT PRN PRN 09/10/21 Folic Acid 1 mg FT DAILY 09/10/21 Gabapentin 300 mg FT TID 09/10/21 Lactose-Reduced Food [Ensure Complete] 375 ml FT SEECOM 09/10/21 Lansoprazole 30 mg FT DAILY 09/10/21 Magnesium Oxide 500 mg FT DAILY 09/10/21 Nicotine [Nicoderm Cq] 1 each TD DAILY 09/10/21 Polyethyl Gly 3350 [Glycolax*] 17 gm FT TID 09/10/21 Prochlorperazine Maleate [Compazine] 5 mg FT Q4H PRN 09/10/21 Rosuvastatin Calcium 40 mg FT BEDTIME 09/10/21 Thiamine HCl 100 mg FT DAILY 09/10/21 Tramadol HCl [Ultram] 50 mg FT Q4H PRN 09/10/21 ondansetron HCL [Ondansetron HCl] 8 mg FT Q8H PRN 09/10/21 levoFLOXacin [Levaquin*] 750 mg PO DAILY 7 Days #7 tab 10/03/21 predniSONE [Deltasone*] 10 mg PO BID 10 Days #20 tab 10/03/21 New Medications: predniSONE [Deltasone*] 10 mg PO BID 10 Days #20 tab levoFLOXacin [Levaquin*] 750 mg PO DAILY 7 Days #7 tab Physician Discharge Instructions: -DC IV and DC home -Follow-up with PCP in 1 to 2 weeks -Follow-up with pulmonary in 1 to 2 weeks -Please call Dr. Guardado at [phone] if any questions regarding hospital stay -Please call nursing station at [phone] if any nursing or medication questions -Return to the emergency room if symptoms worsen Diet: AHA Activity: Fall precautions Followup: Unknown,U [Primary Care Provider] - Time spent managing pt's care (in minutes): 35
== END 2021-10-05 09:28 | disposition home health service (06) | DRG 190 ==
LOC: ER 02:36 → ERHOLD 03:33 → 3RD-ICU 05:11 → 2ND 15:04
PROVIDERS: ADMIT Internal Medicine; ATTEND Internal Medicine
PROC: 5A09357 Assistance with Respiratory Ventilation, Less than 24 Consecutive Hours, Continuous Positive Airway Pressure (ICD-10-PCS; principal; 2021-10-02)
PROC: 5A0945A Assistance with Respiratory Ventilation, 24-96 Consecutive Hours, High Flow/Velocity Cannula (ICD-10-PCS; 2021-10-02)
DX: J44.1 Chronic obstructive pulmonary disease with (acute) exacerbation (principal); J96.02 Acute respiratory failure with hypercapnia; J96.01 Acute respiratory failure with hypoxia; E87.1 Hypo-osmolality and hyponatremia; E11.9 Type 2 diabetes mellitus without complications; I10 Essential (primary) hypertension; C32.9 Malignant neoplasm of larynx, unspecified; Z93.1 Gastrostomy status; D63.0 Anemia in neoplastic disease; I73.9 Peripheral vascular disease, unspecified; Z20.822 Contact with and (suspected) exposure to COVID-19; Z87.891 Personal history of nicotine dependence
CPT/HCPCS: 0240U; 36415; 70491; 71045; 71275; 80048; 80053; 80076; 81003; 82805; 82947; 83605; 83735; 83880; 84145; 84484; 85025; 85610; 87040; 87086; 87088; 93005; 94002; 94003; 94640; 94660; 94760; 96365; 96367; 96374; 96375; 99284; 99291; 99292; J0456; J1650; J1815; J1940; J2270; J2405; J2920; J2930; J3475; J7030; J7050; J7512; J7605; Q9967

== ENCOUNTER 2021-10-14 12:14 | Emergency (ER) | payer OTHER ==
--- OUTSIDE RECORDS SUMMARY | 2021-10-14 12:21 | XMS REPORT | Clinical Summary ---
:1950 Author Organization [facility] MD Patel [facility] Address [address] [place] [address] Care Team Providers Name Role Phone Olivia Coleman DO Unavailable Slava Canseco MD Primary Care Provider MD Thang Unavailable Samantha Polk MD Unavailable Nirmal Davenport RD Unavailable Laurie Maurer HORSERADISH GRINDER Unavailable Hilario Lam MD Unavailable Joesph Payan MD Unavailable Allergies Active Allergy Reactions Severity Noted Date Comments Tramadol Other (See Comments) 09/29/2021 Medications Medication Sig Dispensed Refills Start Date [...] 04/19/2021 Active (GLUCOPHAGE) 500 mg TABLET(S) BY tablet MOUTH TWICE A DAY. fluoride, sodium, Apply to teeth 51 g 20 05/06/2021 Active (PREVIDENT) 1.1 % twice daily. dental [place] teeth with creamIndications: cream and spit Primary [...] does it once a day at night. ondansetron (ZOFRAN) Take 1 tablet (8 30 tablet 05/17/2021 1 07/18/2021 Active 8 mg mg) by mouth tabletIndications: every 8 (eight) Primary squamous cell hours as needed carcinoma of larynx for nausea or vomiting. ferrous sulfate 0 08/16/2017 Act sheron (iron) 325 mg (65 mg elemental iron per tablet) tablet lidocaine (XYLOCAINE) Swish and swallow 100 mL 2 06/15/2021 Active 20 mg/mL (2%) viscous 5 mL every 4 solutionIndications: (four) hours as Oral mucositis due to needed (throat radiation pain). Additional Information Patient not taking. Reason: No longer taking, Reported on 09/23/2021 magnesium oxide 500 mg Take 1 tablet 30 tablet 1 06/15/2021 Active tabletIndications: (500 mg) by Primary squamous cell mouth daily. carcinoma of larynx, Hypomagnesemia rosuvastatin (CRESTOR) daily. 0 06/25/2021 Active 40 mg tablet losartan (COZAAR) 100 daily. 0 06/24/2021 Active mg tablet cloNIDine HCl Take 1 tablet 10 tablet 0 07/01/2021 A ctive (Catapres) 0.1 mg (0.1 mg) by tabletIndications: mouth [...] mouth Hypokalemia, daily. Hypomagnesemia, Hypophosphatemia, Folate deficiency thiamine (VITAMIN B-1) Take 1 tablet 30 tablet 0 07/13/2021 Active 100 mg tab (100 mg) by tabletIndications: mouth daily. Hypokalemia, Hypomagnesemia, Hypophosphatemia traMADol (ULTRAM) 50 mg TAKE ONE (1) 90 tablet 0 07/25/2021 Active tabletIndications: Oral TABLET (50 MG) mucositis due to BY MOUTH EVERY 4 radiation (FOUR) HOURS NEEDED FOR MODERATE PAIN OR SEVERE PAIN. HYDROcodone-acetaminoph Take 1-2 tablets 240 tablet 0 08/15/19 22 Active en ([place]) 5 mg-325 mg by mouth every 8 per tabletIndications: (eight) hours as Oral mucositis due to needed for radiation severe pain. gabapentin (NEURONTIN) TAKE ONE (1) 90 capsule 1 08/22/2021 Active 300 mg CAPSULE(S) BY capsuleIndications: MOUTH THREE Primary squamous cell TIMES A DAY. 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 methylPREDNISolone USE DIRECTED. 0 09/30/2021 Active (MEDROL DOSEPACK) 4 mg tablet levoFLOXacin (LEVAQUIN) TAKE ONE (1) 0 10/05/2021 Active 750 mg tablet TABLET(S) BY MOUTH ONCE A DAY. Nicoderm CQ 21 mg/24 hr Apply 1-2 56 patch 0 10/12/2021 Active transdermal patches to skin patchIndications: and change patch Nicotine dependence daily as directed for tobacco cessation (alternate sites). diazePAM (VALIUM) 5 mg Take 5 mg by 0 03/29/2021 Discontinued tablet mouth as needed. (St op Taking at Discharge) fenofibrate TAKE ONE (1) 0 02/08/202108/31 Disc ontinued nanocrystallized TABLET(S) BY (Stop Taking at (TRICOR) 145 mg tablet MOUTH ONCE A Discharge) DAY. losartan (COZAAR) 50 mg Take 100 mg by 0 04/16/202106/29 Discontinued tablet mouth daily. (Dose a djustment) metoprolol tartrate TAKE ONE (1) 0 04/19/202107/12 Discontinued (LOPRESSOR) 50 mg TABLET(S) BY (Stop Taking at tablet MOUTH TWICE A Discha rge) DAY WITH FOOD. montelukast (SINGULAIR) TAKE ONE (1) 0 04/07/2021 Discontinued 10 mg tablet TABLET(S) BY (Sto p Taking at MOUTH ONCE A Dischar ge) DAY. simvastatin (ZOCOR) 10 TAKE ONE (1) 0 03/09/2021 Discontinued mg tablet TABLET(S) BY (Discon tinued by MOUTH EVERY another EVENING. clinician) tadalafil (CIALIS) 20 Take 20 mg by 0 08/03 8 Discontinued mg tablet mouth. (Error) Nicoderm CQ 21 mg/24 hr Apply 1 [...] vomiting (if not controlled by Ondansetron). gabapentin (Neurontin) Take 1 capsule 90 capsule 1 05/25/202108/22 Discontinued 300 mg (300 mg) by capsuleIndications: mouth 3 (three) Primary squamous cell times a day. 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 Radiation dermatitis Nicoderm CQ 21 mg/24 hr Apply 2 patch to 56 patch 0 2 08/04 Discontinued transdermal skin and change (R eorder) patchIndications: patch daily as Nicotine dependence directed for tobacco cessation (alternate sites). guaiFENesin Take 10 mL (200 473 mL 3 06/13/202108/29 D iscontinued (ROBITUSSIN) 100 mg/5 mg) by mouth (Error) mL syrupIndications: (four) times a Primary squamous cell day. carcinoma of larynx, Thick sputum traMADol (ULTRAM) 50 mg Take 1 tablet 60 tablet 0 06/15/2021 0 07/25 Discontinued tabletIndications: Oral (50 mg) by mouth mucositis due to every 4 (four) radiation hours as needed for moderate pain or severe pain. cloNIDine HCl Take 1 tablet 10 tablet 0 06/22/202107/01 D iscontinued (Catapres) 0.1 mg (0.1 mg) (Reorder) tabletIndications: mouth 3 (three) Hypertension times a day as needed for high blood pressure (Systolic blood pressure over 180, diastolic over 110). glycopyrrolate Take 1 tablet (1 90 tablet 1 06/29/202107/12 Discontinued (RobinuL) 1 mg mg) by mouth (Stop Taking at tabletIndications: (four) times a Discharge) Primary squamous cell day. carcinoma of larynx, Thick sputum senna-docusate Take 1-3 tablets 100 tablet 3 06/29/202108/31 Discontinued (SENOKOT-S) 8.6 mg-50 by mouth (Stop Taking at mg tabletIndications: daily. Discharge) Primary squamous cell carcinoma of larynx, Constipation, not otherwise specified polyethylene glycol Take 17 g by 510 g 3 06/29/202110/12 Discontinued (GLYCOLAX) 17 gram/dose mouth 3 (three) (Therapy powderIndications: times a day. completed) Primary squamous cell carcinoma of larynx, Constipation, not otherwise specified potassium-sodium Give 1 packet 30 packet 0 07/12/202110/12 Discontinued phosphates (PHOS-NAK) per NG-tube /2021 (Therapy 280 mg-160 mg-250 mg twice daily. completed) powderIndications: Mix contents of Hypokalemia, 1 packet of the Hypomagnesemia, powder in 2 and Hypophosphatemia 1/2 ounces (75 mL) of water or juice. Stir until completely dissolved and drink the mixture right away after mixing. Do not save for later use. potassium chloride Give 30 mL (40 900 mL 0 07/12/202110/12 Discontinued (KAYCIEL) 20 mEq/15 mL mEq) per NG-tube /2021 (Therapy solutionIndications: daily. completed) Hypokalemia amoxicillin-clavulanate Take 1 tablet 2 tablet 0 07/13/2021 0 07/12 Discontinued (Augmentin) 875 mg-125 (875 mg) by /2021 (Reorder) mg per mouth daily for tabletIndications: 2 doses. Acute hypoxemic respiratory failure, Aspiration pneumonia amoxicillin-clavulanate Take 1 tablet 5 tablet 0 07/12/2021 0 07/15 (Augmentin) 875 mg-125 (875 mg) by /2021 mg per mouth twice tabletIndications: daily for 5 Acute hypoxemic doses. respiratory failure, Aspiration pneumonia Nicoderm CQ 21 mg/24 hr Apply 1-2 56 patch 0 08/04/202110/12 Discontinued transdermal patches to skin (R eorder) patchIndications: and change patch Nicotine dependence daily as directed for tobacco cessation (alternate sites). nutritional supplement Give 375-500 mL 90 Bottle 3 08/31/202110/12 Discontinued (nutren 1.5) enteral per NG-tube (Therapy tube (three) times a comp leted) feedingIndications: day with meals. Aspiration pneumonia pantoprazole (PROTONIX) Take 1 tablet 30 tablet 3 08/31/2021 0 10/12 Discontinued 40 mg EC (40 mg) by mouth /2021 (Th erapy tabletIndications: every morning completed) Aspiration pneumonia before breakfast. 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 Cancer Staging: Clinical stage from 04/06: Stage III (cT3, cN0, cM0) - Signed by Yumi Desir MD on 05/11/2021 Laryngopharyngeal reflux 04/26/2021 Essential hypertension 10/16/2020 Coronary arteriosclerosis 10/10/2016 Chronic obstructive pulmonary disease 04/26/2016 Type 2 diabetes mellitus without complication 04/25/20 10 Resolved Problems Problem Noted Date Resolved Date Acute hypoxemic respiratory failure 07/10/202108/03 Disorder of fluid AND/OR electrolyte 07/08/2021 Syncope [...] mellitus in obese 05/11/20212020 Overview: Left leg Nicotine dependence 05/09/2021 10/12/2021 Tobacco use 04/26/2021 06/29/2021 Peripheral arterial occlusive disease 10/10/2016 Peripheral vascular disease 10/10/2016 06/29/2021 Encounters Date Type Specialty Care Team Description 10/11/2021 Hospital Encounter Speech Pathology Ene Polk M, MD oropharyngeal phase Kita Campos, [facility]-ROCK CRUSHER OPERATOR 10/03/2021 Orders Only Radiation Rj, Primary squamou s cell Oncology Alexandra, PA carcinoma of la rynx (Primary Dx) 10/03/2021 Telephone Proton Therapy Wayne Castro RN 09/28/2021 Nutrition Slava Witt MD Coleman, Timothy, RD 09/26/2021 Documentation Nutrition Adele Christensen 09/23/2021 Hospital Encounter Head and Neck Ene Polk Primary squamous cell carcinoma of larynx (Primary Dx); Surgery MD Samantha Abnormal findin gs on diagnostic imaging of skull and head, not elsewhere classified 09/23/2021 Hospital Encounter Radiology Ene Polk M, MD oropharyngeal phase Roberta Ortega, [facility]-ROCK CRUSHER OPERATOR 09/23/2021 Travel 09/22/2021 Orders Only Nutrition [...] Christy, Primary squa mous cell Medical Oncology MD carcinoma o f larynx 09/21/2021 Hospital Encounter Proton Therapy Slava Canseco Primary squamous cell MD Nick carcinoma of la rynx 09/21/2021 Documentation Nutrition Camilla Davenport, ANDRÉS 09/21/2021 Travel 09/20/2021 Hospital Encounter Vascular Access Slava Canseco and Procedures MD Loy Romero Craig S, CAREER INFORMATION SPECIALIST 09/20/2021 Hospital Encounter Radiology Rj, Primary s quamous cell Alexandra, PA carcinoma of la rynx 09/20/2021 Hospital Encounter Audiology Slava Canseco Sensorine ural hearing MD Nick loss, bilateral Kerline, (Primary Dx) Murphy Gupta 09/20/2021 Hospital Encounter Lab Rj, Primary s [...] RD 09/07/2021 Documentation Speech Pathology Kita Campos, [facility]-ROCK CRUSHER OPERATOR 09/07/2021 Documentation Speech Pathology Crista Connolly, CCC-ROCK CRUSHER OPERATOR 09/07/2021 Orders Only Head and Neck Erasto, 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); Medical Oncology Anca Sullivan APN Dysphagia , oropharyngeal phase 09/06/2021 Hospital Encounter Speech Pathology Antonella De La Rosa led (Patient Alexandra, OUMAR Request) Crista Connolly CCC-ROCK CRUSHER OPERATOR 09/06/2021 Documentation Speech Pathology Crista Connolly, CCC-ROCK CRUSHER OPERATOR 09/06/2021 Documentation Speech Pathology Crista Connolly, CCC-ROCK CRUSHER OPERATOR 09/05/2021 Nutrition Slava Witt MD Ruzensky, Debra A, RD 09/05/2021 Telephone Camilla Morrissey, RD 09/02/2021 Telephone Radiation Rj Oncology Alexandra, PA 09/01/2021 Telephone April Wylie Discharge Cal l RN 08/31/2021 Orders Only Gastroenterology Michael Lam , Hepatology & D., Nutrition 08/30/2021 Orders Only Speech Pathology Caprice Nolen, M, CCC-ROCK CRUSHER OPERATOR oropharyngeal p hase (Primary Dx) 08/29/2021 Anesthesia Event Endoscopy Sara Deras MD Mathew, Maxy, CRNA 08/29/2021 Surgery Endoscopy Michael Lam DIAGNOSTIC UPP ER D., MD GASTROINTOSMIN Mcintosh ENDOSCOPY 08/26/2021 Prep for Surgery Gastroenterology Harman, Elizabeth, Iron de ficiency , Hepatology & NIB FINISHER anemia, not o therwise Nutrition specified (Prim [...] larynx 08/25/2021 Documentation Speech Pathology Sara Lim, CCC-ROCK CRUSHER OPERATOR 08/25/2021 Telephone Proton Therapy Wayne Castro [...] OUMAR Morris carcinoma of larynx Rebecca Brown, CCC-ROCK CRUSHER OPERATOR 08/22/2021 Orders Only Radiation Rj, Primary [...] radiation; Neuropathic farida n 08/15/2021 Refill Internal Gavino, Hypokalemia; Medicine MD Cintia Hypomagnesemia; Hypophosphatemi a 08/14/2021 Orders Only Radiation Johanne Harry MD Oral mucositis due to Oncology radiation (Prim tisha Dx) 08/14/2021 Telephone Proton Therapy Wayne Castro RN 08/08/2021 Documentation Head and Neck Clemons, Surgery [facility] 08/02/2021 Nutrition Nutrition Slava Canseco Primary [...] 07/25/2021 Documentation Head and Neck Clemons, Surgery [facility] 07/25/2021 Refill Proton Therapy Slava Canseco 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 Nick radiation 07/19/2021 Nutrition Slava Witt MD Ruzensky, Debra A, RD 07/15/2021 Telephone Proton Therapy Wayne Castro RN 07/13/2021 Telemedicine Head and Neck Yumi Desir Primary squa mous cell Medical Oncology carcinoma of larynx Anca Maurer APN 07/13/2021 Telephone Thoracic Erasto, Medicine Anca Sullivan APN 07/13/2021 Orders Only Head and Neck Yumi Desir, Medical Oncology 07/12/2021 Orders Only Head and Neck Eliza Booth Primary squamo us cell Medical art history instructor carcinoma o f larynx (Primary Dx) 07/08/2021 [...] Dick De La Rosa squam ous cell OUMAR Morris carcinoma of [...] specified 07/01/2021 Documentation Speech Pathology Crista Connolly, CCC-ROCK CRUSHER OPERATOR 07/01/2021 Telephone Radiation Andring, Oncology Caprice [...] Proton Therapy Rj, Primary squamous cell Alexandra, PA carcinoma of larynx Slava Canseco MD 06/21/2021 [...] Dx) 06/17/2021 Travel 06/16/2021 Hospital Encounter Proton Slava Landa MD 06/16/2021 Travel 06/15/2021 Office Visit Head and Neck Slava Canseco Hypomagnesemia (Primary Dx); Medical Oncology MD Nick Primary squamous cell carcinoma of laryn x Anca Maurer, [employer]ERADISH GRINDER 06/15/2021 Hospital Encounter Speech Pathology Ene Polk M, MD oropharyngeal phase Christy Chavez, [facility]-ROCK CRUSHER OPERATOR 06/15/2021 Hospital Encounter Proton Slava Landa MD 06/15/2021 Hospital Encounter Proton Therapy Slava Canseco MD 06/15/2021 Documentation Proton Therapy Maame Cruz, [...] Slava Canseco MD 06/13/2021 Hospital Encounter Proton Therapy Slava Canseco MD 06/13/2021 Hospital Encounter Lab Yumi Desir Primary squamous cell carcinoma of la rynx 06/13/2021 Orders Only Radiation Rj, 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); Oncology OUMAR Morris Essential hyper tension 06/13/2021 Orders Only Radiation Rj, 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); Oncology OUMAR Morris Thick sputum 06/13/2021 Travel 06/10/2021 Hospital Encounter Proton Therapy Slava Canseco MD 06/10/2021 Travel 06/09/2021 Hospital Encounter Proton Therapy Slava Canseco MD 06/09/2021 Travel 06/08/2021 Hospital Encounter Proton Slava Landa MD 06/08/2021 Hospital Encounter Proton Therapy Slava Canseco MD 06/08/2021 Hospital Encounter Speech Pathology Rj, Prima ry squamous cell OUMAR Morris carcinoma of larynx Crista Connolly, CCC-ROCK CRUSHER OPERATOR 06/08/2021 Office Visit Head and Neck Yumi Desir, 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); Medical Oncology Swallowing painful; Serum creatinin e raised; Hypomagnesemia 06/08/2021 Documentation Proton Therapy Nancy, Maame Jamil RD 06/08/2021 Travel 06/07/2021 Hospital Encounter Proton [...] MD 05/31/2021 Travel 05/30/2021 Infusion Infusion Yumi Desir Primary squam ous [...] Only Head and Neck Ene Polk, Surgery M, oropharyngeal p hase (Primary Dx) 05/18/2021 Hospital Encounter Radiology Rj, Primary s quamous cell OUMAR Morris carcinoma of larynx Cady Zuleta, [facility]-ROCK CRUSHER OPERATOR 05/18/2021 Travel 05/16/2021 Hospital Encounter Proton [...] squamous cell carcinoma of laryn x Thao Balwdin MA 05/11/2021 Documentation Radiation Slava Cansecoon, MD 05/11/2021 Documentation Head and Neck Travis Arina R Medical Oncology 05/11/2021 Documentation Slava Harry Oncology MD Nick 05/11/2021 Orders Only Radiation Jose Martin Sweeney Oncology MD Diana PhD 05/11/2021 Travel 05/10/2021 Orders Only Proton Therapy Slava Canseco Primary squam ous cell MD Nick carcinoma of la rynx (Primary Dx) 05/06/2021 Hospital Encounter Dental Oncology Med, Encoun ter for Elva, DDS observation for other suspected disea se ruled out 05/06/2021 Hospital Encounter Dental Oncology Med, Primar y squamous cell carcinoma of larynx [...] 05/06/2021 Travel 05/05/2021 Orders Only Dental Oncology Collinuraibluis, Encounter esha Colin observation for other MD [...] Steve Munguia MD Xu, Ya, MD after 10/14/2020 Immunizations Name Administration Dates Next Due Moderna [...] Tobacco Use Types Packs/Day Years Used Date Former Smoker Cigarettes 1.5 47 05/09/1974 - 0 09/30/2021 Smokeless Tobacco: Never Used Tobacco Cessation: Counseling Given: Yes Alcohol Use Standard Drinks/Week Comments Not Currently 0 (1 standard drink = 0.6 oz pure alcoho l) Sex Assigned at Date Recorded Male 04/26/2021 3:55 PM BOOK ILLUSTRATOR Job Start Date Occupation Industry Not on file Not on file Not on file Travel History Travel Start Travel End [place] 04/28/2021 05/01/2021 COVID-19 Exposure Response Date Recorded [...] Treatment Date Type Specialty Care Team Description 10/26/2021 Clinical Support Alexandra Sykes, OUMAR [address] [place], [place] [address] (Wo rk) 10/28/2021 Ancillary Procedure Radiology Oralia Duong PA [address] [place], [place] [address] (Wo rk) 10/28/2021 Appointment Head and Neck Surgery Cipriano Polk MD [address] [place], [place] [address] (Wo rk) 10/28/2021 Appointment Speech Pathology Alexandra De La Rosa PA [address] [place] [address] Sara Harris, PhD [address] [place] [address] 06/26/2022 Appointment Radiology Ene Polk MD [address] [place], [place] [address] (Wo rk) Health Maintenance Due Date Last Done Comments COVID-19 Vaccination (3 - Moderna 05/14/2021 04/16/2021, , risk 4-dose series) 07/10/2020 Implants Implanted Type Area Law Firm Consultant Device Identifier Shelf Exp iration Model / [...] FOR Routine 08/25/2021 4:47 R esults for BUNG DRIVER PM CDT this procedure are in the [...] Routine 07/12/2021 5:42 Resul ts for PM BOOK ILLUSTRATOR this procedure are in the results section. CALCIUM LEVEL TOTAL Routine 07/12/2021 3:09 Resu lts for PM BOOK ILLUSTRATOR this procedure are in the results section. .GLOMERULAR FILTRATION Routine 07/12/2021 3:09 R esults for RATE PM BOOK ILLUSTRATOR this procedure are in the results section. SERUM CREATININE Routine 07/12/2021 3:09 Results for PM BOOK ILLUSTRATOR this procedure are in the results section. ELECTROLYTE PANEL Routine 07/12/2021 3:09 Result s for PM BOOK ILLUSTRATOR this procedure are in the results section. BLOOD UREA NITROGEN Routine 07/12/2021 3:09 Resu lts for PM BOOK ILLUSTRATOR this procedure are in the results section. GLUCOSE LEVEL Routine 07/12/2021 3:09 Results fo r PM BOOK ILLUSTRATOR this procedure are in the results section. PHOSPHORUS LEVEL Routine 07/12/2021 3:09 Results for PM BOOK ILLUSTRATOR this procedure are in the results section. MAGNESIUM LEVEL Routine 07/12/2021 3:09 Results for PM BOOK ILLUSTRATOR this procedure are in the results section. BASIC METABOLIC PANEL, Routine 07/12/2021 3:09 CALCIUM TOTAL PM BOOK ILLUSTRATOR POC GLUCOSE SCREEN Routine 07/12/2021 1:45 Resul ts for PM BOOK ILLUSTRATOR this procedure are in the results section. POC GLUCOSE SCREEN Routine 07/12/2021 9:40 Resul ts for AM BOOK ILLUSTRATOR this procedure are in the results section. MANUAL DIFFERENTIAL AM 07/12/2021 1:56 Resu lts for AM BOOK ILLUSTRATOR this procedure are in the results section. Results CBC AM 07/12/2021 1:56 Results for AM BOOK ILLUSTRATOR this procedure are in the results section. CALCIUM LEVEL TOTAL Routine 07/12/2021 1:56 Resu lts for AM BOOK ILLUSTRATOR this procedure are in the results section. .GLOMERULAR FILTRATION Routine 07/12/2021 1:56 R esults for RATE AM BOOK ILLUSTRATOR this procedure are in the results section. SERUM CREATININE Routine 07/12/2021 1:56 Results for AM BOOK ILLUSTRATOR this procedure are in the results section. ELECTROLYTE PANEL Routine 07/12/2021 1:56 Result s for AM BOOK ILLUSTRATOR this procedure are in the results section. BLOOD UREA NITROGEN Routine 07/12/2021 1:56 Resu lts for AM BOOK ILLUSTRATOR this procedure are in the results section. GLUCOSE LEVEL Routine 07/12/2021 1:56 Results fo r AM BOOK ILLUSTRATOR this procedure are in the results section. PHOSPHORUS LEVEL Routine 07/12/2021 1:56 Results for AM BOOK ILLUSTRATOR this procedure are in the results section. MAGNESIUM LEVEL Routine 07/12/2021 1:56 Results for AM BOOK ILLUSTRATOR this procedure are in the results section. BASIC METABOLIC PANEL, Routine 07/12/2021 1:56 CALCIUM TOTAL AM BOOK ILLUSTRATOR COMPLETE BLOOD COUNT W/ AM 07/12/2021 1:56 DIFFERENTIAL AM BOOK ILLUSTRATOR POC GLUCOSE SCREEN Routine 07/11/2021 10:09 Resul ts for PM BOOK ILLUSTRATOR this procedure are in the results section. POC GLUCOSE SCREEN Routine 07/11/2021 8:52 Resul ts for PM BOOK ILLUSTRATOR this procedure are in the results section. POC GLUCOSE SCREEN Routine 07/11/2021 4:27 Resul ts for PM BOOK ILLUSTRATOR this procedure are in the results section. ECHOCARDIOGRAM 2D Routine 07/11/2021 4:16 Result s for COMPLETE PM BOOK ILLUSTRATOR this procedure are in the results section. CALCIUM LEVEL TOTAL Routine 07/11/2021 2:33 Resu lts for PM BOOK ILLUSTRATOR this procedure are in the results section. .GLOMERULAR FILTRATION Routine 07/11/2021 2:33 R esults for RATE PM BOOK ILLUSTRATOR this procedure are in the results section. SERUM CREATININE Routine 07/11/2021 2:33 Results for PM BOOK ILLUSTRATOR this procedure are in the results section. ELECTROLYTE PANEL Routine 07/11/2021 2:33 Result s for PM BOOK ILLUSTRATOR this procedure are in the results section. BLOOD UREA NITROGEN Routine 07/11/2021 2:33 Resu lts for PM BOOK ILLUSTRATOR this procedure are in the results section. GLUCOSE LEVEL Routine 07/11/2021 2:33 Results fo r PM BOOK ILLUSTRATOR this procedure are in the results section. PHOSPHORUS LEVEL Routine 07/11/2021 2:33 Results for PM BOOK ILLUSTRATOR this procedure are in the results section. MAGNESIUM LEVEL Routine 07/11/2021 2:33 Results for PM BOOK ILLUSTRATOR this procedure are in the results section. BASIC METABOLIC PANEL, Routine 07/11/2021 2:33 CALCIUM TOTAL PM BOOK ILLUSTRATOR POC GLUCOSE SCREEN Routine 07/11/2021 12:33 Resul ts for PM BOOK ILLUSTRATOR this procedure are in the results section. POC GLUCOSE SCREEN Routine 07/11/2021 8:52 Resul ts for AM BOOK ILLUSTRATOR this procedure are in the results section. CALCIUM LEVEL TOTAL Routine 07/11/2021 2:00 Resu lts for AM BOOK ILLUSTRATOR this procedure are in the results section. .GLOMERULAR FILTRATION Routine 07/11/2021 2:00 R esults for RATE AM BOOK ILLUSTRATOR this procedure are in the results section. SERUM CREATININE Routine 07/11/2021 2:00 Results for AM BOOK ILLUSTRATOR this procedure are in the results section. ELECTROLYTE PANEL Routine 07/11/2021 2:00 Result s for AM BOOK ILLUSTRATOR this procedure are in the results section. BLOOD UREA NITROGEN Routine 07/11/2021 2:00 Resu lts for AM BOOK ILLUSTRATOR this procedure are in the results section. GLUCOSE LEVEL Routine 07/11/2021 2:00 Results fo r AM BOOK ILLUSTRATOR this procedure are in the results section. PHOSPHORUS LEVEL Routine 07/11/2021 2:00 Results for AM BOOK ILLUSTRATOR this procedure are in the results section. MAGNESIUM LEVEL Routine 07/11/2021 2:00 Results for AM BOOK ILLUSTRATOR this procedure are in the results section. BASIC METABOLIC PANEL, Routine 07/11/2021 2:00 CALCIUM TOTAL AM BOOK ILLUSTRATOR MANUAL DIFFERENTIAL AM 07/11/2021 1:46 Resu lts for AM BOOK ILLUSTRATOR this procedure are in the results section. Results CBC AM 07/11/2021 1:46 Results for AM BOOK ILLUSTRATOR this procedure are in the results section. COMPLETE BLOOD COUNT W/ AM 07/11/2021 1:46 DIFFERENTIAL AM BOOK ILLUSTRATOR EKG, 12-LEAD (PORTABLE) Routine 07/11/2021 EKG, 12-LEAD (PORTABLE) STAT 07/11/2021 POC GLUCOSE SCREEN Routine 07/10/2021 9:45 Resul ts for PM BOOK ILLUSTRATOR this procedure are in the results section. POC GLUCOSE SCREEN Routine 07/10/2021 7:36 Resul ts for PM BOOK ILLUSTRATOR this procedure are in the results section. POC GLUCOSE SCREEN Routine 07/10/2021 4:26 Resul ts for PM BOOK ILLUSTRATOR this procedure are in the results section. CALCIUM LEVEL TOTAL Routine 07/10/2021 3:02 Resu lts for PM BOOK ILLUSTRATOR this procedure are in the results section. .GLOMERULAR FILTRATION Routine 07/10/2021 3:02 R esults for RATE PM BOOK ILLUSTRATOR this procedure are in the results section. SERUM CREATININE Routine 07/10/2021 3:02 Results for PM BOOK ILLUSTRATOR this procedure are in the results section. ELECTROLYTE PANEL Routine 07/10/2021 3:02 Result s for PM BOOK ILLUSTRATOR this procedure are in the results section. BLOOD UREA NITROGEN Routine 07/10/2021 3:02 Resu lts for PM BOOK ILLUSTRATOR this procedure are in the results section. GLUCOSE LEVEL Routine 07/10/2021 3:02 Results fo r PM BOOK ILLUSTRATOR this procedure are in the results section. PHOSPHORUS LEVEL Routine 07/10/2021 3:02 Results for PM BOOK ILLUSTRATOR this procedure are in the results section. MAGNESIUM LEVEL Routine 07/10/2021 3:02 Results for PM BOOK ILLUSTRATOR this procedure are in the results section. BASIC METABOLIC PANEL, Routine 07/10/2021 3:02 CALCIUM TOTAL PM BOOK ILLUSTRATOR POC GLUCOSE SCREEN Routine 07/10/2021 11:40 Resul ts for AM BOOK ILLUSTRATOR this procedure are in the results section. MANUAL DIFFERENTIAL AM 07/10/2021 6:09 Resu lts for AM BOOK ILLUSTRATOR this procedure are in the results section. Results CBC AM 07/10/2021 6:09 Results for AM BOOK ILLUSTRATOR this procedure are in the results section. CALCIUM LEVEL TOTAL Routine 07/10/2021 6:09 Resu lts for AM BOOK ILLUSTRATOR this procedure are in the results section. .GLOMERULAR FILTRATION Routine 07/10/2021 6:09 R esults for RATE AM BOOK ILLUSTRATOR this procedure are in the results section. SERUM CREATININE Routine 07/10/2021 6:09 Results for AM BOOK ILLUSTRATOR this procedure are in the results section. ELECTROLYTE PANEL Routine 07/10/2021 6:09 Result s for AM BOOK ILLUSTRATOR this procedure are in the results section. BLOOD UREA NITROGEN Routine 07/10/2021 6:09 Resu lts for AM BOOK ILLUSTRATOR this procedure are in the results section. GLUCOSE LEVEL Routine 07/10/2021 6:09 Results fo r AM BOOK ILLUSTRATOR this procedure are in the results section. TROPONIN T AM 07/10/2021 6:09 Results for AM BOOK ILLUSTRATOR this procedure are in the results section. PHOSPHORUS LEVEL Routine 07/10/2021 6:09 Results for AM BOOK ILLUSTRATOR this procedure are in the results section. MAGNESIUM LEVEL Routine 07/10/2021 6:09 Results for AM BOOK ILLUSTRATOR this procedure are in the results section. BASIC METABOLIC PANEL, Routine 07/10/2021 6:09 CALCIUM TOTAL AM BOOK ILLUSTRATOR COMPLETE BLOOD COUNT W/ AM 07/10/2021 6:09 DIFFERENTIAL AM BOOK ILLUSTRATOR POC GLUCOSE SCREEN Routine 07/09/2021 11:11 Resul ts for PM BOOK ILLUSTRATOR this procedure are in the results section. BLOOD UREA NITROGEN STAT 07/09/2021 10:35 Resu lts for PM BOOK ILLUSTRATOR this procedure are in the results section. CALCIUM IONIZED, VENOUS STAT 07/09/2021 10:35 Results for PM BOOK ILLUSTRATOR this procedure are in the results section. .GLOMERULAR FILTRATION STAT 07/09/2021 10:35 R esults for RATE PM BOOK ILLUSTRATOR this procedure are in the results section. SERUM CREATININE STAT 07/09/2021 10:35 Results for PM BOOK ILLUSTRATOR this procedure are in the results section. ELECTROLYTE PANEL STAT 07/09/2021 10:35 Result s for PM BOOK ILLUSTRATOR this procedure are in the results section. GLUCOSE LEVEL STAT 07/09/2021 10:35 Results fo r PM BOOK ILLUSTRATOR this procedure are in the results section. TROPONIN T STAT 07/09/2021 10:35 Results for PM BOOK ILLUSTRATOR this procedure are in the results section. PHOSPHORUS LEVEL STAT 07/09/2021 10:35 Results for PM BOOK ILLUSTRATOR this procedure are in the results section. MAGNESIUM LEVEL STAT 07/09/2021 10:35 Results for PM BOOK ILLUSTRATOR this procedure are in the results section. BASIC METABOLIC PANEL, STAT 07/09/2021 10:35 CALCIUM IONIZED PM BOOK ILLUSTRATOR LOWER RESPIRATORY Now 07/09/2021 5:33 Result s for CULTURE W/ GRAM STAIN PM BOOK ILLUSTRATOR this p rocedure are in the results section. POC GLUCOSE SCREEN Routine 07/09/2021 4:30 Resul ts for PM BOOK ILLUSTRATOR this procedure are in the results section. VASCULAR ACCESS Routine 07/09/2021 3:00 Results for ULTRASOUND PM BOOK ILLUSTRATOR this procedure are in the results section. CALCIUM LEVEL TOTAL Routine 07/09/2021 1:45 Resu lts for PM BOOK ILLUSTRATOR this procedure are in the results section. .GLOMERULAR FILTRATION Routine 07/09/2021 1:45 R esults for RATE PM BOOK ILLUSTRATOR this procedure are in the results section. SERUM CREATININE Routine 07/09/2021 1:45 Results for PM BOOK ILLUSTRATOR this procedure are in the results section. ELECTROLYTE PANEL Routine 07/09/2021 1:45 Result s for PM BOOK ILLUSTRATOR this procedure are in the results section. BLOOD UREA NITROGEN Routine 07/09/2021 1:45 Resu lts for PM BOOK ILLUSTRATOR this procedure are in the results section. GLUCOSE LEVEL Routine 07/09/2021 1:45 Results fo r PM BOOK ILLUSTRATOR this procedure are in the results section. PHOSPHORUS LEVEL Routine 07/09/2021 1:45 Results for PM BOOK ILLUSTRATOR this procedure are in the results section. MAGNESIUM LEVEL Routine 07/09/2021 1:45 Results for PM BOOK ILLUSTRATOR this procedure are in the results section. BASIC METABOLIC PANEL, Routine 07/09/2021 1:45 CALCIUM TOTAL PM BOOK ILLUSTRATOR OSCILLATORY PEP Routine 07/09/2021 1:21 PM BOOK ILLUSTRATOR OSCILLATORY PEP Routine 07/09/2021 1:21 PM BOOK ILLUSTRATOR OSCILLATORY PEP Routine 07/09/2021 1:21 PM BOOK ILLUSTRATOR POC GLUCOSE SCREEN Routine 07/09/2021 12:42 Resul ts for PM BOOK ILLUSTRATOR this procedure are in the results section. POC GLUCOSE SCREEN Routine 07/09/2021 8:56 Resul ts for AM BOOK ILLUSTRATOR this procedure are in the results section. MANUAL DIFFERENTIAL AM 07/09/2021 6:28 Resu lts for AM BOOK ILLUSTRATOR this procedure are in the results section. Results CBC AM 07/09/2021 6:28 Results for AM BOOK ILLUSTRATOR this procedure are in the results section. CALCIUM LEVEL TOTAL AM 07/09/2021 6:28 Resu lts for AM BOOK ILLUSTRATOR this procedure are in the results section. .GLOMERULAR FILTRATION AM 07/09/2021 6:28 R esults for RATE AM BOOK ILLUSTRATOR this procedure are in the results section. SERUM CREATININE AM 07/09/2021 6:28 Results for AM BOOK ILLUSTRATOR this procedure are in the results section. ELECTROLYTE PANEL AM 07/09/2021 6:28 Result s for AM BOOK ILLUSTRATOR this procedure are in the results section. BLOOD UREA NITROGEN AM 07/09/2021 6:28 Resu lts for AM BOOK ILLUSTRATOR this procedure are in the results section. GLUCOSE LEVEL AM 07/09/2021 6:28 Results fo r AM BOOK ILLUSTRATOR this procedure are in the results section. PHOSPHORUS LEVEL AM 07/09/2021 6:28 Results for AM BOOK ILLUSTRATOR this procedure are in the results section. MAGNESIUM LEVEL AM 07/09/2021 6:28 Results for AM BOOK ILLUSTRATOR this procedure are in the results section. COMPLETE BLOOD COUNT W/ AM 07/09/2021 6:28 DIFFERENTIAL AM BOOK ILLUSTRATOR BASIC METABOLIC PANEL, AM 07/09/2021 6:28 CALCIUM TOTAL AM BOOK ILLUSTRATOR TROPONIN T Routine 07/09/2021 6:28 Results for AM BOOK ILLUSTRATOR this procedure are in the results section. POC GLUCOSE SCREEN Routine 07/08/2021 10:08 Resul ts for PM BOOK ILLUSTRATOR this procedure are in the results section. POC GLUCOSE SCREEN Routine 07/08/2021 5:49 Resul ts for PM BOOK ILLUSTRATOR this procedure are in the results section. STREPTOCOCCAL URINE Routine 07/08/2021 5:17 Resu lts for ANTIGEN PATH REVIEW PM BOOK ILLUSTRATOR this pro cedure are in the results section. LEGIONELLA URINE Routine 07/08/2021 5:17 Results for ANTIGEN PATH REVIEW PM BOOK ILLUSTRATOR this pro cedure are in the results section. LEGIONELLA URINE Now 07/08/2021 5:17 Results for ANTIGEN PM BOOK ILLUSTRATOR this procedure are in the results section. STREPTOCOCCUS Now 07/08/2021 5:17 Results fo r PNEUMONIAE URINE PM BOOK ILLUSTRATOR this proced ure ANTIGEN are in the results section. GENERAL LABORATORY ADD Now 07/08/2021 3:35 R esults for ON TEST PM BOOK ILLUSTRATOR this procedure are in the results section. MRSA SCREENING CULTURE Now 07/08/2021 3:23 R esults for PM BOOK ILLUSTRATOR this procedure are in the results section. CT CHEST PULMONARY Routine 07/08/2021 1:38 Resul ts for EMBOLISM W CONTRAST PM BOOK ILLUSTRATOR this pro cedure are in the results section. XR ABDOMEN AP Routine 07/08/2021 1:31 Results fo r PM BOOK ILLUSTRATOR this procedure are in the results section. POC CRITICAL Routine 07/08/2021 12:14 Results for PM BOOK ILLUSTRATOR this procedure are in the results section. POC CHEM 8 Routine 07/08/2021 12:14 Results for PM BOOK ILLUSTRATOR this procedure are in the results section. PROCALCITONIN Now 07/08/2021 12:13 Results fo r PM BOOK ILLUSTRATOR this procedure are in the results section. FRACTIONATED BILIRUBIN Now 07/08/2021 12:13 R esults for PM BOOK ILLUSTRATOR this procedure are in the results section. TOTAL PROTEIN Now 07/08/2021 12:13 Results fo r PM BOOK ILLUSTRATOR this procedure are in the results section. ASPARTATE Now 07/08/2021 12:13 Results for AMINOTRANSFERASE PM BOOK ILLUSTRATOR this proced ure are in the results section. ALANINE Now 07/08/2021 12:13 Results for AMINOTRANSFERASE PM BOOK ILLUSTRATOR this proced ure are in the results section. ALKALINE PHOSPHATASE Now 07/08/2021 12:13 Res ults for PM BOOK ILLUSTRATOR this procedure are in the results section. ALBUMIN LEVEL Now 07/08/2021 12:13 Results fo r PM BOOK ILLUSTRATOR this procedure are in the results section. CALCIUM LEVEL TOTAL Now 07/08/2021 12:13 Resu lts for PM BOOK ILLUSTRATOR this procedure are in the results section. .GLOMERULAR FILTRATION Now 07/08/2021 12:13 R esults for RATE PM BOOK ILLUSTRATOR this procedure are in the results section. SERUM CREATININE Now 07/08/2021 12:13 Results for PM BOOK ILLUSTRATOR this procedure are in the results section. ELECTROLYTE PANEL Now 07/08/2021 12:13 Result s for PM BOOK ILLUSTRATOR this procedure are in the results section. BLOOD UREA NITROGEN Now 07/08/2021 12:13 Resu lts for PM BOOK ILLUSTRATOR this procedure are in the results section. GLUCOSE LEVEL Now 07/08/2021 12:13 Results fo r PM BOOK ILLUSTRATOR this procedure are in the results section. MANUAL DIFFERENTIAL STAT 07/08/2021 12:13 Resu lts for PM BOOK ILLUSTRATOR this procedure are in the results section. Results CBC STAT 07/08/2021 12:13 Results for PM BOOK ILLUSTRATOR this procedure are in the results section. CARDIAC PANEL Timed Study 07/08/2021 12:13 Results fo r PM BOOK ILLUSTRATOR this procedure are in the results section. D DIMER Now 07/08/2021 12:13 Results for PM BOOK ILLUSTRATOR this procedure are in the results section. APTT Now 07/08/2021 12:13 Results for PM BOOK ILLUSTRATOR this procedure are in the results section. PROTHROMBIN TIME Now 07/08/2021 12:13 Results for PM BOOK ILLUSTRATOR this procedure are in the results section. PHOSPHORUS LEVEL Now 07/08/2021 12:13 Results for PM BOOK ILLUSTRATOR this procedure are in the results section. MAGNESIUM LEVEL Now 07/08/2021 12:13 Results for PM BOOK ILLUSTRATOR this procedure are in the results section. COMPREHENSIVE METABOLIC Now 07/08/2021 12:13 PANEL PM BOOK ILLUSTRATOR COMPLETE BLOOD COUNT W/ Now 07/08/2021 12:13 DIFFERENTIAL PM BOOK ILLUSTRATOR XR CHEST 1 VW Routine 07/08/2021 11:38 Results fo r AM BOOK ILLUSTRATOR this procedure are in the results section. COVID-19 (SARS-COV-2) Now 07/08/2021 11:23 Re sults for ASYMPTOMATIC-LT AM BOOK ILLUSTRATOR this procedu re are in the results section. CT HEAD WO CONTRAST Routine 07/08/2021 11:05 Resu lts for AM BOOK ILLUSTRATOR this procedure are in the results section. POC GLUCOSE SCREEN Routine 07/08/2021 10:47 Resul ts for AM BOOK ILLUSTRATOR this procedure are in the results section. 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 ASPARTATE Routine 07/04/2021 11:10 Primary squamous Results for AMINOTRANSFERASE AM BOOK ILLUSTRATOR cell carcinoma of this p rocedure larynx are in the results section. 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 ASPARTATE Routine 06/27/2021 8:00 Primary squamous Results for AMINOTRANSFERASE AM BOOK ILLUSTRATOR cell carcinoma of this p rocedure larynx are in the results section. ALANINE Routine 06/27/2021 8:00 Primary squamous Results for AMINOTRANSFERASE AM BOOK ILLUSTRATOR cell carcinoma of this p rocedure larynx are in the results section. 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 ELECTROLYTE PANEL Routine 06/27/2021 8:00 Primary squamous Re sults for AM BOOK ILLUSTRATOR cell carcinoma of this proce dure larynx are in the results section. 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 COMPLETE BLOOD COUNT W/ Routine 06/27/2021 8:00 Primary squam ous DIFFERENTIAL AM BOOK ILLUSTRATOR cell carcinoma of larynx COMPREHENSIVE METABOLIC Routine 06/27/2021 8:00 Primary squam ous PANEL AM BOOK ILLUSTRATOR cell carcinoma of larynx TROPONIN T STAT 06/22/2021 3:45 Results for PM BOOK ILLUSTRATOR this procedure are in the results section. FRACTIONATED BILIRUBIN Now 06/22/2021 11:54 R esults for AM BOOK ILLUSTRATOR this procedure are in the results section. TOTAL PROTEIN Now 06/22/2021 11:54 Results fo r AM BOOK ILLUSTRATOR this procedure are in the results section. ASPARTATE Now 06/22/2021 11:54 Results for AMINOTRANSFERASE AM BOOK ILLUSTRATOR this proced ure are in the results section. ALANINE Now 06/22/2021 11:54 Results for AMINOTRANSFERASE AM BOOK ILLUSTRATOR this proced ure are in the results section. ALKALINE PHOSPHATASE Now 06/22/2021 11:54 Res ults for AM BOOK ILLUSTRATOR this procedure are in the results section. ALBUMIN LEVEL Now 06/22/2021 11:54 Results fo r AM BOOK ILLUSTRATOR this procedure are in the results section. CALCIUM LEVEL TOTAL Now 06/22/2021 11:54 Resu lts for AM BOOK ILLUSTRATOR this procedure are in the results section. .GLOMERULAR FILTRATION Now 06/22/2021 11:54 R esults for RATE AM BOOK ILLUSTRATOR this procedure are in the results section. SERUM CREATININE Now 06/22/2021 11:54 Results for AM BOOK ILLUSTRATOR this procedure are in the results section. ELECTROLYTE PANEL Now 06/22/2021 11:54 Result s for AM BOOK ILLUSTRATOR this procedure are in the results section. BLOOD UREA NITROGEN Now 06/22/2021 11:54 Resu lts for AM BOOK ILLUSTRATOR this procedure are in the results section. GLUCOSE LEVEL Now 06/22/2021 11:54 Results fo r AM BOOK ILLUSTRATOR this procedure are in the results section. MANUAL DIFFERENTIAL STAT 06/22/2021 11:54 Resu lts for AM BOOK ILLUSTRATOR this procedure are in the results section. Results CBC STAT 06/22/2021 11:54 Results for AM BOOK ILLUSTRATOR this procedure are in the results section. CKMB Now 06/22/2021 11:54 Results for AM BOOK ILLUSTRATOR this procedure are in the results section. CREATINE KINASE Now 06/22/2021 11:54 Results for AM BOOK ILLUSTRATOR this procedure are in the results section. NT PRO BNP Now 06/22/2021 11:54 Results for AM BOOK ILLUSTRATOR this procedure are in the results section. PHOSPHORUS LEVEL Now 06/22/2021 11:54 Results for AM BOOK ILLUSTRATOR this procedure are in the results section. MAGNESIUM LEVEL Now 06/22/2021 11:54 Results for AM BOOK ILLUSTRATOR this procedure are in the results section. COMPREHENSIVE METABOLIC Now 06/22/2021 11:54 PANEL AM BOOK ILLUSTRATOR COMPLETE BLOOD COUNT W/ Now 06/22/2021 11:54 DIFFERENTIAL AM BOOK ILLUSTRATOR COVID-19 (SARS-COV-2) Now 06/22/2021 11:54 Re sults for ASYMPTOMATIC-LT AM BOOK ILLUSTRATOR this procedu re are in the results section. EKG, 12-LEAD (PORTABLE) Routine 06/22/2021 EKG, 12-LEAD (PORTABLE) STAT 06/22/2021 CT HEAD/NECK SIMULATION Routine 06/21/2021 9:00 Primary squam ous Results for WO CONTRAST (RO) AM BOOK ILLUSTRATOR cell carcinoma of this p rocedure larynx are in the results section. 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 TOTAL PROTEIN Routine 06/20/2021 8:07 Primary squamous Result s for AM BOOK ILLUSTRATOR cell carcinoma of this proce dure larynx are in the results section. 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 ALANINE Routine 06/20/2021 8:07 Primary squamous Results for AMINOTRANSFERASE AM BOOK ILLUSTRATOR cell carcinoma of this p rocedure larynx are in the results section. 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 SERUM CREATININE Routine 06/20/2021 8:07 Primary squamous Res ults for AM BOOK ILLUSTRATOR cell carcinoma of this proce dure larynx are in the results section. ELECTROLYTE PANEL Routine 06/20/2021 8:07 Primary squamous Re sults for AM BOOK ILLUSTRATOR cell carcinoma of this proce dure larynx are in the results section. 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 GLUCOSE LEVEL Routine 06/20/2021 8:07 Primary squamous Result s for AM BOOK ILLUSTRATOR cell carcinoma of this proce dure larynx are in the results section. PHOSPHORUS LEVEL Routine 06/20/2021 8:07 Primary squamous Res ults for AM BOOK ILLUSTRATOR cell carcinoma of this proce dure larynx are in the results section. MAGNESIUM LEVEL Routine 06/20/2021 8:07 Primary squamous Resu lts for AM BOOK ILLUSTRATOR cell carcinoma of this proce dure larynx are in the results section. 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 ASPARTATE Routine 06/13/2021 7:00 Primary squamous Results for AMINOTRANSFERASE AM BOOK ILLUSTRATOR cell carcinoma of this p rocedure larynx are in the results section. ALANINE Routine 06/13/2021 7:00 Primary squamous Results for AMINOTRANSFERASE AM [employer]OOK ILLUSTRATOR cell carcinoma of this p rocedure larynx are in the results section. 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 .GLOMERULAR FILTRATION Routine 06/13/2021 7:00 Primary squamo us Results for RATE AM [employer]OOK ILLUSTRATOR cell carcinoma of this proce dure larynx are in the results section. 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 FRACTIONATED BILIRUBIN Routine 06/06/2021 6:58 Primary squamo us Results for AM BOOK ILLUSTRATOR cell carcinoma of this proce dure larynx are in the results section. TOTAL PROTEIN Routine 06/06/2021 6:58 Primary squamous Result s for AM BOOK ILLUSTRATOR cell carcinoma of this proce dure larynx are in the results section. ASPARTATE Routine 06/06/2021 6:58 Primary squamous Results for AMINOTRANSFERASE AM BOOK ILLUSTRATOR cell carcinoma of this p rocedure larynx are in the results section. ALANINE Routine 06/06/2021 6:58 Primary squamous Results for AMINOTRANSFERASE AM BOOK ILLUSTRATOR cell carcinoma of this p rocedure larynx are in the results section. 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 ALBUMIN LEVEL Routine 06/06/2021 6:58 Primary squamous Result s for AM BOOK ILLUSTRATOR cell carcinoma of this proce dure larynx are in the results section. 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 .GLOMERULAR FILTRATION Routine 06/06/2021 6:58 Primary squamo us Results for RATE AM [employer]OOK ILLUSTRATOR cell carcinoma of this proce dure larynx are in the results section. SERUM CREATININE Routine 06/06/2021 6:58 Primary squamous Res ults for AM BOOK ILLUSTRATOR cell carcinoma of this proce dure larynx are in the results section. ELECTROLYTE PANEL Routine 06/06/2021 6:58 Primary squamous Re sults for AM BOOK ILLUSTRATOR cell carcinoma of this proce dure larynx are in the results section. BLOOD UREA NITROGEN Routine 06/06/2021 6:58 Primary squamous Results for AM BOOK ILLUSTRATOR cell carcinoma of this proce dure larynx are in the results section. GLUCOSE LEVEL Routine 06/06/2021 6:58 Primary squamous Result s for AM BOOK ILLUSTRATOR cell carcinoma of this proce dure larynx are in the results section. PHOSPHORUS LEVEL Routine 06/06/2021 6:58 Primary squamous Res ults for AM BOOK ILLUSTRATOR cell carcinoma of this proce dure larynx are in the results section. MAGNESIUM LEVEL Routine 06/06/2021 6:58 Primary squamous Resu lts for AM BOOK ILLUSTRATOR cell carcinoma of this proce dure larynx are in the results section. COMPLETE BLOOD COUNT W/ Routine 06/06/2021 6:58 Primary squam ous DIFFERENTIAL AM [employer]OOK ILLUSTRATOR cell carcinoma of larynx COMPREHENSIVE METABOLIC Routine 06/06/2021 6:58 Primary squam ous PANEL AM BOOK ILLUSTRATOR cell carcinoma of larynx MANUAL DIFFERENTIAL Routine 05/30/2021 8:28 Primary squamous Results for AM BOOK ILLUSTRATOR cell carcinoma of this proce dure larynx are in the results section. Results CBC Routine 05/30/2021 8:28 Primary squamous Results for AM BOOK ILLUSTRATOR cell carcinoma of this proce dure larynx are in the results section. 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 TOTAL PROTEIN Routine 05/30/2021 8:28 Primary squamous Result s for AM BOOK ILLUSTRATOR cell carcinoma of this proce dure larynx are in the results section. ASPARTATE Routine 05/30/2021 8:28 Primary squamous Results for AMINOTRANSFERASE AM BOOK ILLUSTRATOR cell carcinoma of this p rocedure larynx are in the results section. ALANINE Routine 05/30/2021 8:28 Primary squamous Results for AMINOTRANSFERASE AM BOOK ILLUSTRATOR cell carcinoma of this p rocedure larynx are in the results section. ALKALINE PHOSPHATASE Routine 05/30/2021 8:28 Primary squamous Results for AM BOOK ILLUSTRATOR cell carcinoma of this proce dure larynx are in the results section. ALBUMIN LEVEL Routine 05/30/2021 8:28 Primary squamous Result s for AM BOOK ILLUSTRATOR cell carcinoma of this proce dure larynx are in the results section. CALCIUM LEVEL TOTAL Routine 05/30/2021 8:28 Primary squamous Results for AM BOOK ILLUSTRATOR cell carcinoma of this proce dure larynx are in the results section. 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 SERUM CREATININE Routine 05/30/2021 8:28 Primary squamous Res ults for AM BOOK ILLUSTRATOR cell carcinoma of this proce dure larynx are in the results section. ELECTROLYTE PANEL Routine 05/30/2021 8:28 Primary squamous Re sults for AM BOOK ILLUSTRATOR cell carcinoma of this proce dure larynx are in the results section. 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 GLUCOSE LEVEL Routine 05/30/2021 8:28 Primary squamous Result s for AM BOOK ILLUSTRATOR cell carcinoma of this proce dure larynx are in the results section. PHOSPHORUS LEVEL Routine 05/30/2021 8:28 Primary squamous Res ults for AM BOOK ILLUSTRATOR cell carcinoma of this proce dure larynx are in the results section. MAGNESIUM LEVEL Routine 05/30/2021 8:28 Primary squamous Resu lts for AM BOOK ILLUSTRATOR cell carcinoma of this proce dure larynx are in the results section. COMPLETE BLOOD COUNT W/ Routine 05/30/2021 8:28 Primary squam ous DIFFERENTIAL AM BOOK ILLUSTRATOR cell carcinoma of larynx COMPREHENSIVE METABOLIC Routine 05/30/2021 8:28 Primary squam ous PANEL AM BOOK ILLUSTRATOR cell carcinoma of larynx MANUAL DIFFERENTIAL Routine 05/23/2021 8:42 Primary squamous Results for AM BOOK ILLUSTRATOR cell carcinoma of this proce dure larynx are in the results section. Results CBC Routine 05/23/2021 8:42 Primary squamous Results for AM BOOK ILLUSTRATOR cell carcinoma of this proce dure larynx are in the results section. 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 TOTAL PROTEIN Routine 05/23/2021 8:42 Primary squamous Result s for AM BOOK ILLUSTRATOR cell carcinoma of this proce dure larynx are in the results section. ASPARTATE Routine 05/23/2021 8:42 Primary squamous Results for AMINOTRANSFERASE AM BOOK ILLUSTRATOR cell carcinoma of this p rocedure larynx are in the results section. ALANINE Routine 05/23/2021 8:42 Primary squamous Results for AMINOTRANSFERASE AM BOOK ILLUSTRATOR cell carcinoma of this p rocedure larynx are in the results section. ALKALINE PHOSPHATASE Routine 05/23/2021 8:42 Primary squamous Results for AM BOOK ILLUSTRATOR cell carcinoma of this proce dure larynx are in the results section. ALBUMIN LEVEL Routine 05/23/2021 8:42 Primary squamous Result s for AM BOOK ILLUSTRATOR cell carcinoma of this proce dure larynx are in the results section. CALCIUM LEVEL TOTAL Routine 05/23/2021 8:42 Primary squamous Results for AM BOOK ILLUSTRATOR cell carcinoma of this proce dure larynx are in the results section. 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 SERUM CREATININE Routine 05/23/2021 8:42 Primary squamous Res ults for AM BOOK ILLUSTRATOR cell carcinoma of this proce dure larynx are in the results section. ELECTROLYTE PANEL Routine 05/23/2021 8:42 Primary squamous Re sults for AM BOOK ILLUSTRATOR cell carcinoma of this proce dure larynx are in the results section. BLOOD UREA NITROGEN Routine 05/23/2021 8:42 Primary squamous Results for AM BOOK ILLUSTRATOR cell carcinoma of this proce dure larynx are in the results section. GLUCOSE LEVEL Routine 05/23/2021 8:42 Primary squamous Result s for AM BOOK ILLUSTRATOR cell carcinoma of this proce dure larynx are in the results section. PHOSPHORUS LEVEL Routine 05/23/2021 8:42 Primary squamous Res ults for AM BOOK ILLUSTRATOR cell carcinoma of this proce dure larynx are in the results section. MAGNESIUM LEVEL Routine 05/23/2021 8:42 Primary squamous Resu lts for AM BOOK ILLUSTRATOR cell carcinoma of this proce dure larynx are in the results section. COMPLETE BLOOD COUNT W/ Routine 05/23/2021 8:42 Primary squam ous DIFFERENTIAL AM BOOK ILLUSTRATOR cell carcinoma of larynx COMPREHENSIVE METABOLIC Routine 05/23/2021 8:42 Primary squam ous PANEL AM BOOK ILLUSTRATOR cell carcinoma of larynx FL MODIFIED BARIUM Routine 05/18/2021 9:57 Primary squamous R esults for SWALLOW W SPEECH AM [employer]OOK ILLUSTRATOR cell carcinoma of this p rocedure larynx are in the results section. CT HEAD/NECK SIMULATION Routine 05/11/2021 10:46 Primary squam ous Results for WO CONTRAST (RO) AM BOOK ILLUSTRATOR cell carcinoma of this p rocedure larynx are in the results section. COVID-19 Routine 05/11/2021 9:05 Encounter for Results fo r (SARS-COV-2) PCR AM BOOK ILLUSTRATOR observation for this pro cedure ASYMPTOMATIC other suspected are in the exposure to results biological agent section. ruled out ORTHOPANTOGRAM Routine 05/06/2021 10:53 Encounter for Results for AM BOOK ILLUSTRATOR observation for this procedu re other suspected are in the disease ruled out results section. 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 FRACTIONATED BILIRUBIN Routine 05/04/2021 11:10 Primary squamo us Results for AM BOOK ILLUSTRATOR cell carcinoma of this proce dure larynx are in the results section. TOTAL PROTEIN Routine 05/04/2021 11:10 Primary squamous Result s for AM BOOK ILLUSTRATOR cell carcinoma of this proce dure larynx are in the results section. ASPARTATE Routine 05/04/2021 11:10 Primary squamous Results for AMINOTRANSFERASE AM BOOK ILLUSTRATOR cell carcinoma of this p rocedure larynx are in the results section. ALANINE Routine 05/04/2021 11:10 Primary squamous Results for AMINOTRANSFERASE AM BOOK ILLUSTRATOR cell carcinoma of this p rocedure larynx are in the results section. ALKALINE PHOSPHATASE Routine 05/04/2021 11:10 Primary squamous Results for AM BOOK ILLUSTRATOR cell carcinoma of this proce dure larynx are in the results section. ALBUMIN LEVEL Routine 05/04/2021 11:10 Primary squamous Result s for AM BOOK ILLUSTRATOR cell carcinoma of this proce dure larynx are in the results section. .GLOMERULAR FILTRATION Routine 05/04/2021 11:10 Primary squamo us Results for RATE AM [employer]OOK ILLUSTRATOR cell carcinoma of this proce dure larynx are in the results section. SERUM CREATININE Routine 05/04/2021 11:10 Primary squamous Res ults for AM BOOK ILLUSTRATOR cell carcinoma of this proce dure larynx are in the results section. VITAMIN D 25 HYDROXY Routine 05/04/2021 11:10 Primary squamous Results for LEVEL AM BOOK ILLUSTRATOR cell carcinoma of this proce dure larynx are in the results section. HEPATIC FUNCTION PANEL Routine 05/04/2021 11:10 Primary squamo us AM BOOK ILLUSTRATOR cell carcinoma of larynx CALCIUM LEVEL TOTAL Routine 05/04/2021 11:10 Primary squamous Results for AM BOOK ILLUSTRATOR cell carcinoma of this proce dure larynx are in the results section. PHOSPHORUS LEVEL Routine 05/04/2021 11:10 Primary squamous Res ults for AM BOOK ILLUSTRATOR cell carcinoma of this proce dure larynx are in the results section. MAGNESIUM LEVEL Routine 05/04/2021 11:10 Primary squamous Resu lts for AM BOOK ILLUSTRATOR cell carcinoma of this proce dure larynx are in the results section. GLUCOSE, RANDOM Routine 05/04/2021 11:10 Primary squamous Resu lts for AM BOOK ILLUSTRATOR cell carcinoma of this proce dure larynx are in the results section. SERUM CREATININE Routine 05/04/2021 11:10 Primary squamous AM BOOK ILLUSTRATOR cell carcinoma of larynx BLOOD UREA NITROGEN Routine 05/04/2021 11:10 Primary squamous Results for AM BOOK ILLUSTRATOR cell carcinoma of this proce dure larynx are in the results section. ELECTROLYTE PANEL Routine 05/04/2021 11:10 Primary squamous Re sults for AM BOOK ILLUSTRATOR cell carcinoma of this proce dure larynx are in the results section. MD COVID-19 Routine 05/04/2021 10:23 Suspected COVID-19 Resul ts for (SARS-COV-2) PCR AM B[employer] ILLUSTRATOR this proced ure ASYMPTOMATIC are in the results section. TMP HCVAB INTERP Routine 05/03/2021 8:26 Results for AM BOOK ILLUSTRATOR this procedure are in the results section. FRACTIONATED BILIRUBIN Routine 05/03/2021 8:26 Primary squamo us Results for AM BOOK ILLUSTRATOR cell carcinoma of this proce dure larynx are in the results section. TOTAL PROTEIN Routine 05/03/2021 8:26 Primary squamous Result s for AM BOOK ILLUSTRATOR cell carcinoma of this proce dure larynx are in the results section. ASPARTATE Routine 05/03/2021 8:26 Primary squamous Results for AMINOTRANSFERASE AM BOOK ILLUSTRATOR cell carcinoma of this p rocedure larynx are in the results section. ALANINE Routine 05/03/2021 8:26 Primary squamous Results for AMINOTRANSFERASE AM BOOK ILLUSTRATOR cell carcinoma of this p rocedure larynx are in the results section. ALKALINE PHOSPHATASE Routine 05/03/2021 8:26 Primary squamous Results for AM BOOK ILLUSTRATOR cell carcinoma of this proce dure larynx are in the results section. ALBUMIN LEVEL Routine 05/03/2021 8:26 Primary squamous Result s for AM BOOK ILLUSTRATOR cell carcinoma of this proce dure larynx are in the results section. CALCIUM LEVEL TOTAL Routine 05/03/2021 8:26 Primary squamous Results for AM BOOK ILLUSTRATOR cell carcinoma of this proce dure larynx are in the results section. .GLOMERULAR FILTRATION Routine 05/03/2021 8:26 Primary squamo us Results for RATE AM [employer]OOK ILLUSTRATOR cell carcinoma of this proce dure larynx are in the results section. SERUM CREATININE Routine 05/03/2021 8:26 Primary squamous Res ults for AM BOOK ILLUSTRATOR cell carcinoma of this proce dure larynx are in the results section. ELECTROLYTE PANEL Routine 05/03/2021 8:26 Primary squamous Re sults for AM BOOK ILLUSTRATOR cell carcinoma of this proce dure larynx are in the results section. BLOOD UREA NITROGEN Routine 05/03/2021 8:26 Primary squamous Results for AM BOOK ILLUSTRATOR cell carcinoma of this proce dure larynx are in the results section. GLUCOSE LEVEL Routine 05/03/2021 8:26 Primary squamous Result s for AM BOOK ILLUSTRATOR cell carcinoma of this proce dure larynx are in the results section. MANUAL DIFFERENTIAL Routine 05/03/2021 8:26 Primary squamous Results for AM BOOK ILLUSTRATOR cell carcinoma of this proce dure larynx are in the results section. Results CBC Routine 05/03/2021 8:26 Primary squamous Results for AM BOOK ILLUSTRATOR cell carcinoma of this proce dure larynx are in the results section. FREE THYROXINE Routine 05/03/2021 8:26 Primary squamous Resul ts for AM BOOK ILLUSTRATOR cell carcinoma of this proce dure larynx are in the results section. HEPATITIS C VIRUS Routine 05/03/2021 8:26 Primary squamous Re sults for ANTIBODY AM [employer]OOK ILLUSTRATOR cell carcinoma of this proce dure larynx are in the results section. THYROID STIMULATING Routine 05/03/2021 8:26 Primary squamous Results for HORMONE AM [employer]OOK ILLUSTRATOR cell carcinoma of this proce dure larynx are in the results section. COMPREHENSIVE METABOLIC Routine 05/03/2021 8:26 Primary squam ous PANEL AM BOOK ILLUSTRATOR cell carcinoma of larynx COMPLETE BLOOD COUNT W/ Routine 05/03/2021 8:26 Primary squam ous DIFFERENTIAL AM BOOK ILLUSTRATOR cell carcinoma of larynx CT CHEST W CONTRAST Routine 05/03/2021 7:27 Primary squamous Results for AM BOOK ILLUSTRATOR cell carcinoma of this proce dure larynx are in the results section. 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 POC CREATININE Routine 05/03/2021 6:56 Results f or AM BOOK ILLUSTRATOR this procedure are in the results section. OSI PET CT SKULL TO MID Routine 04/07/2021 1:24 Cancer Results for THIGH PM CDT this procedure are in the results section. PATHOLOGY OUTSIDE Routine 03/28/2021 Results fo r INTERPRETATION this procedur e are in the results section. OSI CHEST Routine 03/24/2021 1:24 Cancer Results for PM CDT this procedure are in the results section. after 10/14/2020 Results Modified Barium Swallow w Speech (09/23/2021 10:46 AM CDT)Only the most recent of3 resultswithin the time period is included. Anatomical Region Laterality Modality Neck Radio Fluoroscopy Specimen Impressions [id number] - 09/23/2021 3:54 PM CDT 1. Silent aspiration with thin liquids w as reduced with strategies. Silent laryngeal penetration with thick liquids was reduced with strategies. 2. Moderate pharyngeal residue was reduc ed with strategies. Refer to speech pathology note for furth er details. Narrative [id number] - 09/23/2021 3:54 PM CDT FULL RESULT: [...] Organization Address City/State/ZIP Code Phon e Number [id number] CT Soft Tissue Neck with Contrast (09/20/2021 4:26 PM CDT)Only the most recent of2 resultswithin the time period is included. Anatomical Region Laterality Modality Neck Computed Tomography Specimen Impressions [id number] - 09/21/2021 7:52 AM CDT 1. Near complete resolution of previou sly present enhancement within the supraglottic larynx with interval development of enhancement within the aryepiglottic folds and hypopharynx as described above which may be reflective of radiation eff ects. Recommend correlation with direct inspection. 2. No evidence of new cervical adenopa thy to suggest herrera disease recurrence in the neck. Occasional machine stripper errors may have occurred due to the inherent limitations of voice recognition software, and incorrect words/phrases may have been missed during proofreading. Please interpret using context where substitutions have occurred. Narrative [id number] - 09/21/2021 7:52 AM CDT FULL RESULT: [...] herrera disease recurrence in the neck. Occasional machine stripper errors may have occurred due to the inherent limitations of voice recognition software, and incorrect words/phrases may have been missed during proofreading. Please interpret using context where substitutions have occurred. Performing Organization Address City/State/ZIP Code Phon e Number [id number] CT Chest with Contrast (09/20/2021 4:26 PM CDT)Only the most recent of2 results within the time period is included. Anatomical Region Laterality Modality Chest Computed Tomography Specimen Impressions [id number] - 09/21/2021 12:03 PM CDT New opacities in the lingula and left lower lobe concerning for aspiration and/or pneumonia. Clinical correlation follow-up to resolution is recommended. No definite sign of metastatic disease in the chest. Narrative [id number] - 09/21/2021 12:03 PM CDT FULL RESULT: [...] Organization Address City/State/ZIP Code Phon e Number [id number] .Serum Creatinine (09/20/2021 11:58 AM CDT)Only the most recent of28 results within the time period is included. Pathologist Sig nature Creatinine 0.98 0.67 - 1.17 mg/dL [facility] C ENTER Specimen Blood Narrative [facility] - 2 1:28 PM CDT Pls schedule videostrobe prior to MD eric ts Performing Organization Address City/State/ZIP Code Phon e Number [facility] Unless otherwise noted, [place], [place] [id number] [place] [address] all lab tests performed by: Division of Pathology and Laboratory Medicine [facility] Glomerular Filtration Rate (09/20/2021 11:58 AM CDT)Only the most recent of28 resultswithin the time period is included. eGFR-AA 89 >=60 [facility] Comment: mL/min/1.73 [facility] Normal eGFR: >= 60 mL/min/1.73 m2 sq. m Note: The eGFR is calculated using the CKD-EPI equation. The eGFR declines with age. eGFR <60 mL/min/1.73 m2 is considered as "decreased". This equation should only be used for patients 18 and older. According to the National [facility]'s Kidney Disease Outcome Quality Initiative (KDOQI) [...] 5 Kidney failure <15 eGFR-JOSELITO 77 >=60 [facility] Comment: mL/min/1.73 [facility] Normal eGFR: >= 60 mL/min/1.73 m2 sq. m Note: The eGFR is calculated using the CKD-EPI equation. The eGFR declines with age. eGFR <60 mL/min/1.73 m2 is considered as "decreased". This equation should only be used for patients 18 and older. According to the National [facility]'s Kidney Disease Outcome Quality Initiative (KDOQI) [...] 5 Kidney failure <15 Specimen Blood Narrative [facility] - 2 1:28 PM CDT Pls schedule videostrobe prior to MD eric ts Performing Organization Address City/State/ZIP Code Phon e Number [facility] Unless otherwise noted, [address] all lab tests performed by: Division of Pathology and Laboratory Medicine [address] (ABNORMAL) BUN (09/20/2021 11:58 AM CDT)Only the most recent of28 resultswithin the time period is included. Pathologist Sig nature BUN 35 (H) 6 - 23 mg/dL [facility] Specimen Blood Narrative [facility] - 2 1:28 PM CDT Pls schedule videostrobe prior to MD eric ts Performing Organization Address City/[facility] Phon e Number [facility] CANCER Unless otherwise noted, [address] all lab tests performed by: Division of Pathology and Laboratory Medicine [address] [place] TSH (09/20/2021 11:58 AM CDT)Only the most recent of2 resultswithin the time period is included. Pathologist Sig nature TSH 3.11 0.27 - 4.20 mcunit/mL [facility] Specimen Blood Narrative [facility] - 2 1:28 PM CDT Pls schedule videostrobe prior to MD eric ts Performing Organization Address City/[facility]/ZIP [facility] Phon e Number [facility] CANCER Unless otherwise noted, [address] all lab tests performed by: Division of Pathology and Laboratory Medicine [address] [place] Free T4 (09/20/2021 11:58 AM CDT)Only the most recent of2 resultswithin the time period is included. Pathologist Sig nature T4 Free 1.40 0.93 - 1.70 ng/dL [facility] CANCER C ENTER Specimen Blood Narrative [facility] - 2 1:28 PM CDT Pls schedule videostrobe prior to MD eric ts Performing Organization Address City/[facility] Phon e Number [facility] CANCER Unless otherwise noted, [place] [address] CENTER all lab tests performed by: Division of Pathology and Laboratory Medicine [address] [place] [address] (ABNORMAL) POC Glucose Screen (08/31/2021 10:15 AM CDT)Only the most recent of40 resultswithin the time period is included. Pathologist [facility] POC Glucose 131 (H) 70 - 99 [...] Sample Type Capillary POC TELCOR [facility]forming Lab [facility]: [facility] TELCOR [facility] Clinical [facility], [address] [place] [address], [place] [address]; Hospital Receptionist: Loida Chaevz MD Specimen Blood Performing Organization Address City/[facility] Phon e Number POC TELCOR (ABNORMAL) .CBC (08/31/2021 4:26 AM CDT)Only the most recent of21 resultswithin the time period is included. WBC 4.4 4.0 - 11.0 [facility] K/uL CANCER CENTER RBC 3.03 (L) 4.50 - 6.00 [facility] M/uL CANCER CENTER Hgb 8.3 (L) 14.0 - 18.0 [facility] gm/dL [facility] Hct 26.8 (L) 40.0 - 54.0 % [facility] MCV 88 82 - 98 fL [facility] MCH 27.4 27.0 - 31.0 pg [facility] MCHC 31.0 31.0 - 36.0 [facility] gm/dL [facility] RDW-SD 46.0 35.1 - 46.3 fL [facility] RDW-CV 14.1 12.0 - 15.5 % [facility] Platelet count 236 140 - 440 K/uL [facility] MPV 10.0 4.0 - 10.4 fL [facility] INRBC 0.0 <=0.0 % [facility] Comment: CANCER CENTER The INRBC (instrument NRBC) value reflects the enumera tion of nucleated red blood cells contained in a 200uL samp le of whole blood analyzed by the instrument. This value may differ from the NRBC value reported in a manual differ ential, which is based on a 100 cell differential. Specimen Blood Performing Organization Address City/State/ZIP Code Phon e Number [facility] Unless otherwise noted, [place], [place] [id number] [place] [address] all lab tests performed by: Division of Pathology and Laboratory Medicine [address] (ABNORMAL) Differential (08/31/2021 4:26 AM CDT)Only the most recent of21 resultswithin the time period is included. Neutrophil % 71.7 (H) 42.0 - 66.0 % [facility] Lymphocyte % 14.8 (L) 24.0 - 44.0 % [facility] Monocyte % 6.6 2.0 - 7.0 % [facility] Eosinophil % 5.7 (H) 1.0 - 4.0 % [facility] Basophil % 0.7 0.0 - 1.0 % [facility] IGRE % 0.5 (H)Comment: 0.0 - 0.4 % [facility] IGRE % count [facility] includes Metamyelocytes, Myelocytes, and Promyelocytes. Neutrophil Abs 3.16 1.70 - 7.30 [facility] Lymphocyte Abs 0.65 (L) 1.00 - 4.80 [facility] Monocyte Abs 0.29 0.08 - 0.70 [facility] Eosinophil Abs 0.25 0.04 - 0.40 [facility] Basophil Abs 0.03 0.00 - 0.10 [facility] IG Abs 0.02 0.00 - 0.04 [facility] K/uL CANCER CENTER Specimen Blood Performing Organization Address [facility] Phon e Number [facility] CANCER Unless otherwise noted, [address] all lab tests performed by: Division of Pathology and Laboratory Medicine [address] Phosphorus Level (08/31/2021 4:26 AM CDT)Only the most recent of26 results within the time period is included. Pathologist Sig nature Phosphorus 3.0 2.5 - 4.5 mg/dL [facility] TER Specimen Blood Performing Organization Address [facility] Phon e Number [facility] CANCER Unless otherwise noted, [address] all lab tests performed by: Division of Pathology and Laboratory Medicine [address] Magnesium Level (08/31/2021 4:26 AM CDT)Only the most recent of26 resultswithin the time period is included. Pathologist Sig nature Magnesium 1.8 1.6 - 2.6 mg/dL [facility] TER Specimen Blood Performing Organization Address [facility] Phon e Number [facility] CANCER Unless otherwise noted, [address] all lab tests performed by: Division of Pathology and Laboratory Medicine [address] (ABNORMAL) Glucose Level (08/31/2021 4:26 AM CDT)Only the most recent of26 resultswithin the time period is included. Glucose Level 136 (H) 70 - 99 mg/dL [facility] Comment: CANCER CENTER Effective 12/29/15, the gluco se reference intervals have been updated based on [place] [employer] guidelines (Standards of Medical Care in Diabetes 2016. Diabetes Care 2016; 39: S13-S22). Fasting blood glucose: Normal: 70-99 mg/dL Impaired fasting glucose (in creased risk for diabetes or pre-diabetes): 100- 125 mg/dL Diabetes mellitus: >/=126 mg/dL Random blood glucose: Normal: 70-199 mg/dL Note: Random glucose >100 mg/dL is assoc iated with increased risk for diabetes Specimen Blood Performing Organization Address [facility] Phon e Number [facility] CANCER Unless otherwise noted, [address] all lab tests performed by: Division of Pathology and Laboratory Medicine [address] [place] Calcium Level (08/31/2021 4:26 AM CDT)Only the most recent of26 resultswithin the time period is included. Pathologist Sig nature Calcium Lvl 8.4 8.4 - 10.2 mg/dL [facility] NTER Specimen Blood Performing Organization Address City/[facility] Phon e Number [facility] Unless otherwise noted, [address] all lab tests performed by: Division of Pathology and Laboratory Medicine [address] [place] [address] (ABNORMAL) Electrolyte Panel (08/31/2021 4:26 AM CDT)Only the most recent of27 resultswithin the time period is included. Pathologist Sig nature Sodium Lvl 138 136 - 145 mEq/L [facility] Potassium Lvl 3.4 (L) 3.5 - 5.1 mEq/L [facility] Chloride 101 98 - 107 mEq/L [facility] CO2 26 22 - 29 mEq/L [facility] Anion Gap 11 4 - 14 mEq/L [facility] Specimen Blood Performing Organization Address City/[facility] Phon e Number [facility] Unless otherwise noted, [address] all lab tests performed by: Division of Pathology and Laboratory Medicine [address] [place] [address] XR Abdomen 1 View Portable (08/29/2021 6:11 PM CDT) Anatomical Region Laterality Modality Abdomen Digital Radiography Specimen Impressions [id number] - 08/29/2021 7:19 PM CDT Dobbhoff tube follows the course of the duodenum, tip projecting near the duodenojejunal junction. 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 Findings: Dobbhoff tube follows the course of the duodenum, tip projecting near the duodenojejunal junction. No dilated loops of bowel are identified in the visualized abdomen. Unchanged osseous structures. Procedure Note Bogdan Lemus MD - 08/29/2021 FULL RESULT: Examination: XR ABDOMEN 1 VW PORTABLE 3/ 6:11 PM Clinical History:Primary squamous cell c [...] Organization Address City/State/ZIP Code Phon e Number [id number] Pathology Biopsy Interpretation (08/29/2021 2:14 PM CDT) Pathologist Sig nature Submitted Clinical Iron deficiency [facility] History anemia, not otherwise specified [D50.9] Diagnosis A: Duodenum, biopsy: [facility] Electro nically signed Duodenal [...] p, biopsy: Tubular adenoma. Gross Description A: [facility] Duodenum, duodenum: 3 soft [...] in D1. ET Disclaimer "Some tests reported [facility] here may have been developed and performance characteristics determined by [facility] Pathology and Laboratory Medicine. These tests have not been specifically cleared or approved by the U.S. Food and Drug Administration. If applicable, controls were reviewed and showed appropriate reactivity." Specimen Tissue - Duodenum Tissue - Stomach Tissue - Stomach Tissue - Colon Performing Organization Address City/[facility]/ZIP Code Phon e Number [facility] [address] (ABNORMAL) Prothrombin Time with INR (08/29/2021 5:31 AM CDT)Only the most recent of3 resultswithin the time period is included. Pathologist Sig nature PT 14.9 (H) 11.5 - 13.9 [facility] second(s) CENTER INR 1.26 (H) 0.90 - 1.10 [facility] Specimen Blood Performing Organization Address City/[facility] Phon e Number [facility] CANCER Unless otherwise noted, [address] all lab tests performed by: Division of Pathology and Laboratory Medicine [address] [place] [address] Transfuse RBC:Transfusion Date: 08/25/2021 (08/26/2021 6:58 AM CDT)Only the most recent of2 resultswithin the time period is included.Confirm ABORh (08/25/2021 6:19 PM CDT) Pathologist Sig nature ABORh Confirm. O NEG [facility] ER Specimen Blood Performing Organization Address [facility] Phon e Number [facility] Unless otherwise noted, [address] all lab tests performed by: Division of Pathology and Laboratory Medicine [address] [place] [address] COVID-19 (SARS-CoV-2)Asymptomatic-LT (08/25/2021 6:15 PM CDT)Only the most recent of3 resultswithin the time period is included. COVID19 Not Detected Not Detected [facility] (SARS-CoV-2) [facility] COVID19 SARS Inpatient Admission [facility] Indication [facility] Covid 19 Comment See Note [facility] Comment: [facility] The rufino SARS-CoV-2 [...] fact sheet for patients provided by the real estate account executive ([facility]) can be reviewed at: https://www.Learning [employer].gov/media/15 2003/download. A fact sheet for Health Care providers is provided by the real estate account executive ([facility]) and can be reviewed at: https://www.fda.gov/media/905372/download Results must be interpreted within the context [...] and high-complexity tests. The Microbiology Laboratory at [facility], CLIA Accreditation # [id number] and CAP Accreditation #[id number], verified the performance characteristics of this assay. Internal controls are used to monitor all stages of the test process. Specimen Nasopharyngeal Swab Performing Organization Address City/State/[facility] Phon e Number [facility] Unless otherwise noted, [address] all lab tests performed by: Division of Pathology and Laboratory Medicine [address] Expiration Date (08/25/2021 6:15 PM CDT) Pathologist Sig nature T & S Expiration 08/28/2021 [facility] Specimen Blood Performing Organization Address City/[facility] Phon e Number [facility] CANCER Unless otherwise noted, [address] all lab tests performed by: Division of Pathology and Laboratory Medicine [address] [place] Fractionated Bilirubin (08/25/2021 6:15 PM CDT)Only the most recent of12 resultswithin the time period is included. Bili Total 0.4 <=1.2 mg/dL [facility] Comment: [facility] Indocyanine Green (ICG) may cause falsely elevated bilirubin results. Total and direct bilirubin must not be measured from samples containing indocyanine green. False elevation of total emmett irubin can be seen in patients with IgG concentrations above 28 g/L. Bili Direct 0.2Comment: <=0.3 mg/dL [facility] Indocyanine Green CANCER CENTER (ICG) may cause falsely elevated bilirubin results. Total and direct bilirubin must not be measured from samples containing indocyanine green. Bili Indirect 0.2 0.0 - 0.9 [facility] mg/dL CANCER CENTER Specimen Blood Performing Organization Address City/[facility] Code Phon e Number [facility] CANCER Unless otherwise noted, [address] all lab tests performed by: Division of Pathology and Laboratory Medicine [address] [place] [address] TMP Interpretation Antibody Screen Negative (08/25/2021 6:15 PM CDT) [facility] Auto Neg ABSC At the present time, patien t plasma shows no evidence of RBC alloantibodies. [facility] Interp Comment: [facility] MD Carri ALLEN [id number] Dictated by: NICHOLE HUMPHREY MD - [id number] Dictated Date/Time: 08.27.19 8:43 AM CDT Transcribed Date/Time: 08.26.2021 8:43 AM CDT Electronically Signed By: MD Carri CAZARES [id number] on 08.26.2021 8:43 AM C Specimen Blood Performing Organization Address City/[facility] Code Phon e Number [facility] CANCER Unless otherwise noted, [address] all lab tests performed by: Division of Pathology and Laboratory Medicine [address] [place], [place] [address] TMP Interpretation Crossmatch (08/25/2021 6:15 PM CDT) [facility] XM Interp RBC units crossmatched for transfusion appear ac ceptable. [facility] Comment: [facility] MD Carri ALLEN [id number] Dictated by: MD Carri ALLEN [id number] Dictated Date/Time: 08.27.19 8:43 AM CDT Transcribed Date/Time: 08.26.2021 8:43 AM CDT Electronically Signed By: ANGEL HUMPHREY MD - [id number] on 08.26.2021 8:43 AM C Specimen Blood Performing Organization Address City/[facility]/ZIP Code Phon e Number [facility] Unless otherwise noted, [address] all lab tests performed by: Division of Pathology and Laboratory Medicine [facility] aPTT (08/25/2021 6:15 PM CDT)Only the most recent of2 resultswithin the time period is included. Pathologist Sig nature aPTT 32.7 24.7 - 36.8 second(s) [facility] Specimen Blood Performing Organization Address City/[facility]/ZIP [facility] Phon e Number [facility] CANCER Unless otherwise noted, [address] all lab tests performed by: Division of Pathology and Laboratory Medicine [address] ABORh (08/25/2021 6:15 PM CDT) Pathologist Sig nature ABORh. O NEG [facility] Specimen Blood Performing Organization Address [facility] Phon e Number [facility] Unless otherwise noted, [address] all lab tests performed by: Division of Pathology and Laboratory Medicine [address] [place] [address] [place] Antibody Screen (08/25/2021 6:15 PM CDT) Pathologist Sig nature ABSC. Negative ABSC [facility] R Specimen Blood Performing Organization Address City/[facility]/ZIP [facility] Phon e Number [facility] CANCER Unless otherwise noted, [address] all lab tests performed by: Division of Pathology and Laboratory Medicine [address] [place] [address] [place] ALT (08/25/2021 6:15 PM CDT)Only the most recent of12 resultswithin the time period is included. Pathologist Sig nature ALT 29 <=41 U/L [facility] Specimen Blood Performing Organization Address City/[facility]/ZIP Code Phon e Number [facility] CANCER Unless otherwise noted, [address] all lab tests performed by: Division of Pathology and Laboratory Medicine [address] [place] Aspartate Aminotransferase (08/25/2021 6:15 PM CDT)Only the most recent of12 resultswithin the time period is included. Pathologist Sig nature AST 32 <=40 U/L [facility] Specimen Blood Performing Organization Address City/[facility] Phon e Number [facility] CANCER Unless otherwise noted, [address] all lab tests performed by: Division of Pathology and Laboratory Medicine [address] [place] Total Protein (08/25/2021 6:15 PM CDT)Only the most recent of12 resultswithin the time period is included. Pathologist Sig nature Total Protein 7.2 6.4 - 8.3 g/dL [facility] TER Specimen Blood Performing Organization Address [facility] Phon e Number [facility] Unless otherwise noted, [address] all lab tests performed by: Division of Pathology and Laboratory Medicine [address] [place] [address] [place] Alkaline Phosphatase (08/25/2021 6:15 PM CDT)Only the most recent of12 results within the time period is included. Pathologist Sig nature Alk Phos 64 40 - 129 U/L [facility] Specimen Blood Performing Organization Address City/[facility] Phon e Number [facility] Unless otherwise noted, [address] all lab tests performed by: Division of Pathology and Laboratory Medicine [address] [place] Albumin Level (08/25/2021 6:15 PM CDT)Only the most recent of12 resultswithin the time period is included. Pathologist Sig nature Albumin Lvl 3.7 3.5 - 5.2 gm/dL [facility] TER Specimen Blood Performing Organization Address City/[facility] Phon e Number [facility] CANCER Unless otherwise noted, [address] all lab tests performed by: Division of Pathology and Laboratory Medicine [address] RBC Product Ready for Advertising Associate (08/25/2021 4:47 PM CDT) PRBC Product Ready B2 Blood [facility] for Advertising Associate BankComment: [facility] Product is ready for pick and shovel man on August 25, 2021 22:21:56 CDT. Specimen Blood Performing Organization Address [facility] Phon e Number [facility] CANCER Unless otherwise noted, [address] all lab tests performed by: Division of Pathology and Laboratory Medicine [address] [place] [address] Prepare RBC:accc, 2 Units (08/25/2021 4:47 PM CDT) PRBC Product Ready 2Comment: Red Blood [facility] Cells Available - [facility] Order Form 03 when ready for product issue. Unit Number [id number] [facility] Product Code [id number] [facility] Unit Expiration [facility] Unit Blood Type 9500 [facility] Product Code Text RBCIRLR CPD AS1 [facility] 500mL [facility] Crossmatch [id number] [facility] Expiration Date CANCER CENTER Unit Irradiated IRRADIATED [facility] Dispense Status ISSUED [facility] Unit Blood Type O Negative [facility] Product Advertising Associate .BPAMComment: [facility] Location CANCER CENTER Unit Number [id number] [facility] Product Code [id number] [facility] Unit Expiration [id number] [facility] Unit Blood Type 9500 [facility] Product Code Text RBCIRLR CPD AS1 [facility] 500mL [facility] Crossmatch [id number] [facility] Expiration Date CANCER CENTER Unit Irradiated IRRADIATED [facility] Dispense Status ISSUED [facility] Unit Blood Type O Negative [facility] Product Advertising Associate .BPAMComment: [facility] Location CANCER CENTER Specimen Blood Performing Organization Address City/State/[facility] Phon e Number [facility] CANCER Unless otherwise noted, [address] all lab tests performed by: Division of Pathology and Laboratory Medicine [address] [place] X-ray Chest 2 Views (08/25/2021 11:17 AM CDT) Anatomical Region Laterality Modality Chest Digital Radiography Specimen Impressions [id number] - 08/25/2021 11:31 AM CDT There are mild opacities over the dorsal costophrenic recess on the lateral view that may represent either aspiration or pneumonia. Narrative [id number] - 08/25/2021 11:31 AM CDT FULL RESULT: [...] Organization Address City/State/ZIP Code Phon e Number [id number] Flexible nasopharyngeal laryngoscopy (08/22/2021 10:38 AM CDT) Rebecca Mark CCC-SLP - 10:38 AM CDT JAMIE Camarena 08/22/2021 4:05 PM Flexible nasopharyngeal laryngoscopy Date/Time: 08/22/2021 10:38 AM Provider Information: Performed by: Rebecca Brown, CCC-SL P Authorized by: [employer] Crossbar Switch Adjuster present?: no Indications: Indications: videostroboscopy Pre-Procedure Note: refrigerator repair technician: no Pre-procedure patient condition: coher ent Procedure [...] COVID-19 (SARS-CoV-2) PCR-Asymptomatic (08/20/2021 2:44 PM CDT) [facility] COVID19 (SARS Not Detected Not Detected [facility] LICEA CoV-2) Result Comment: [facility] This test is a qualitative r everse-transcriptase [...] fact sheet for patients provided by the real estate account executive ( [employer]) can be reviewed at: https://www.fda.gov/media/02 0834/download. A fact sheet for Health Care providers is provided by the real estate account executive ([employer]) and can be reviewed at: https://www.fda.gov/media/249490/download Results must be interpreted within the context [...] were verified by the Microbiology Laboratory at [facility], CLIA Accreditation #: [id number] and CAP Accreditation #: [id number]. COVID19 SARS COMMUNITY BOARD MEMBER Swab [facility] Source [facility] COVID19 SARS Pre-Out of OR [facility] Indication Procedure CANCER CENTER Specimen Nasopharyngeal Swab Performing Organization Address City/State/ZIP Code Phon e Number [facility] CANCER Unless otherwise noted, [place] [address] CENTER all lab tests performed by: Division of Pathology and Laboratory Medicine [address] [facility] Echocardiogram 2D Complete (07/11/2021 4:16 PM BOOK ILLUSTRATOR) Specimen Narrative ISCV - 07/11/2021 4:19 PM BOOK ILLUSTRATOR Echocardiographic Report Interpretation Summary A complete two-dimensional [...] ( sept): 17.1 62 Performing Organization Address [facility] Code Phon e Number ISCV EKG, 12-Lead (07/11/2021)Only the most recent of5 resultswithin the time period is included. Specimen Narrative This result has an attachment that is no t available. Performing Organization Address [facility] Phon e Number GASPER IECG (ABNORMAL) Troponin T (In-House) (07/10/2021 6:09 AM BOOK ILLUSTRATOR)Only the most recent of4 resultswithin the time period is included. Pathologist Sig nature Troponin T 37 (H) <=18 ng/L [facility] Comment: CANCER CENTER < 19 ng/L Suggest [...] low results. Specimen Blood Performing Organization Address [facility] Phon e Number [facility] CANCER Unless otherwise noted, [address] all lab tests performed by: Division of Pathology and Laboratory Medicine [address] (ABNORMAL) Calcium Ionized, Venous (07/09/2021 10:35 PM BOOK ILLUSTRATOR) Pathologist Sig nature V Ion Ca 0.96 (L) 1.15 - 1.29 mmol/L [facility] CANCER [place] Specimen Blood Performing Organization Address [facility] Phon e Number [facility] CANCER Unless otherwise noted, [address] all lab tests performed by: Division of Pathology and Laboratory Medicine [address] (ABNORMAL) Lower Respiratory Culture w/Gram Stain (07/09/2021 5:33 PM BOOK ILLUSTRATOR) Final Report Normal site shayna present. [facility] Generally of low significance. CANCER CHARLIE TER Correlate with clinical data and culture history. (A) Path Review The results have been review ed and electronically signed by Pathologist: [place] MD ANUJA BRADY MD #[id number] CANCER CENTE R (A) Gram Stain Report Moderate WBC's seen [place] MD LICEA Epithelial cells seen CANCER CENTER Moderate Gram Positive Cocci Moderate Gram Variable Madan (A) Specimen Sputum Induced Performing Organization Address City/State/ZIP Code Phon e Number [facility] CANCER Unless otherwise noted, [address] all lab tests performed by: Division of Pathology and Laboratory Medicine [facility] Vascular Access Ultrasound- VAP RN Device (07/09/2021 3:00 PM BOOK ILLUSTRATOR) Anatomical Region Laterality Modality Vascular Ultrasound Specimen Narrative Systemgenerated, Documentation - 022 3:00 PM BOOK ILLUSTRATOR This procedure requires no interpretatio n from the radiologist. Legionella Urine Antigen Path Review (07/08/2021 5:17 PM BOOK ILLUSTRATOR) Legionella Urine Negative for L. pneumophila serogroup 1 antigen, suggesting no recent or current infection. However, infection due to other serogroups and species of Legionella are not detected by this assay. In additi [place] MD LICEA Antigen Path on, antigen may not be present in the urine in [facility] Review infection and the level of antigen present in the urine may be below the detection limit of the test. ... Reviewed and Electronically signed by Pathologist: Amaury Sinha MD, PhD #[id number] Comment: AMAURY SINHA MD, PhD - [id number] Dictated by: AMAURY SINHA MD, PhD - [id number] Dictated Date/Time: 07.11.19 1:11 AM BOOK ILLUSTRATOR Transcribed Date/Time: 07.11.2021 1:11 AM BOOK ILLUSTRATOR Electronically Signed By: ANIYAH SINHA MD, PhD - [id number] on 07.11.2021 1:11 AM C Specimen Urine Performing Organization Address City/State/ZIP Code Phon e Number [facility] ANUJA CANCER Unless otherwise noted, [address] all lab tests performed by: Division of Pathology and Laboratory Medicine [address] [facility] Streptococcal Urine Antigen Path Review (07/08/2021 5:17 PM BOOK ILLUSTRATOR) Pathologist [facility] Streptococcal Urine Presumptive negative for S. pneumoniae antigen in urine, suggesting no current or recent pneumococcal infection. Infection due to S. pneumoniae cannot be ruled out since the level of antigen present in [facility] Antigen Path Review the urine may be below the detection limit o f the [facility] test. ... Reviewed and Electronically signed by Pathologist: Amaury Sinha MD, PhD #[id number] Comment: AMAURY SINHA MD, PhD - [id number] Dictated by: AMAURY SINHA MD, PhD - [id number] Dictated Date/Time: 07.11.19 1:11 AM BOOK ILLUSTRATOR Transcribed Date/Time: 07.11.2021 1:11 AM BOOK ILLUSTRATOR Electronically Signed By: ANIYAH SINHA MD, PhD - [id number] on 07.11.2021 1:11 AM C Specimen Urine Performing Organization Address City/[facility]/ZIP Code Phon e Number [facility] Unless otherwise noted, [address] all lab tests performed by: Division of Pathology and Laboratory Medicine [address] [place] [address] Streptococcus pneumoniae Urine Antigen (07/08/2021 5:17 PM BOOK ILLUSTRATOR) [facility] Streptococcal Urine Presumptive negative for S. pneumoniae antigen in the urine, suggesting no current or recent pneumococcal infection. However, infection due to S. pneumoniae cannot be completely ruled out since the leve [facility] Antigen Interpretation l of antigen present in the urine may be below the CANCER CENTER detection limit of the test. Streptococcal Urine Negative [facility] Antigen Interpretation CANCER CENTER Specimen Urine Performing Organization Address City/[facility] Phon e Number [facility] CANCER Unless otherwise noted, [address] all lab tests performed by: Division of Pathology and Laboratory Medicine [address] [place] [address] Legionella Urine Antigen (07/08/2021 5:17 PM BOOK ILLUSTRATOR) [facility] Legionella Urine Negative for L. pneumophila serogroup 1 antigen, suggesting no recent or current infection. However, infections due to other serogroups and species of Legionella are not detected by this assay. In addition, antigen may not be present in the urine in [facility] Antigen Interpretation early infection and the leve l of antigen present in the urine may be below the detection limit of the test. CANCER C ENTER Legionella Urine Negative [facility] Antigen Interpretation CANCER CENTER Specimen Urine Performing Organization Address City/[facility] Phon e Number [facility] CANCER Unless otherwise noted, [address] all lab tests performed by: Division of Pathology and Laboratory Medicine [address] [place] [address] General Laboratory Add-On Test (07/08/2021 3:35 PM BOOK ILLUSTRATOR) Pathologist Sig nature Ordered Test Added [facility] Test Needed Procalcitonin [facility] Specimen Existing Performing Organization Address City/[facility] Phon e Number [facility] CANCER Unless otherwise noted, [address] all lab tests performed by: Division of Pathology and Laboratory Medicine [address] [place] [address] MRSA Screening Culture (07/08/2021 3:23 PM BOOK ILLUSTRATOR) Final Report No Methicillin resistant [facility] Staphylococcus aureus [facility] isolated. Path Review Culture yield may be affecte d by sample quality, prior treatment, and transportation conditions. [facility] ... CANCER CENTER The results have been reviewed and electronically sign ed by Pathologist: Amaury Sinha MD, PhD #[id number] Specimen Nasal Performing Organization Address City/[facility] Phon e Number [facility] Unless otherwise noted, [address] all lab tests performed by: Division of Pathology and Laboratory Medicine [address] [place] [address] CT Chest Pulmonary Embolism with Contrast (07/08/2021 1:38 PM BOOK ILLUSTRATOR) Anatomical Region Laterality Modality Chest Computed Tomography Specimen Impressions [id number] - 07/08/2021 2:09 PM BOOK ILLUSTRATOR There are no pulmonary emboli. There are new findings in the left lower lobe raising the possibility of aspiration/pneumonia. Narrative [id number] - 07/08/2021 2:09 PM BOOK ILLUSTRATOR FULL RESULT: Examination: CT CHEST PULMONARY EMBOLISM [...] Organization Address City/State/ZIP Code Phon e Number [id number] XR Abdomen AP (07/08/2021 1:31 PM BOOK ILLUSTRATOR) Anatomical Region Laterality Modality Abdomen Digital Radiography Specimen Impressions [id number] - 07/08/2021 1:34 PM BOOK ILLUSTRATOR Feeding tube tip overlying the gastric f undus. Recommend further advancement. Narrative [id number] - 07/08/2021 1:34 PM BOOK ILLUSTRATOR FULL RESULT: Examination: XR ABDOMEN AP on [...] Organization Address City/State/ZIP Code Phon e Number [id number] (ABNORMAL) POC Chem 8 without Hemoglobin and Hematocrit (07/08/2021 12:14 PM BOOK ILLUSTRATOR) POC NA 131 (L) 138 - 146 [...] 18 and older. According to the National Ki dney Foundation's Kidney Disease Outcome Quality Initiative [...] Clean Dev Yes POC TELCOR Performing Lab [facility] POC TELCOR [facility], [address] [place] [address], [place] [address]; Hospital Receptionist: Loida Chavez MD Specimen Blood Performing Organization Address City/[facility]/ZIP Code Phon e Number POC TELCOR POC Critical (07/08/2021 12:14 PM BOOK ILLUSTRATOR) Pathologist Sig nature POC Critical Comment See NoteComment: POC TELCOR Test performer notified Ordering Licensed Provider and /or designee of POC Potassium critical Results. Specimen Blood Performing Organization Address [facility] Phon e Number POC TELCOR (ABNORMAL) Procalcitonin (07/08/2021 12:13 PM BOOK ILLUSTRATOR) Procalcitonin 0.15 (H) <=0.08 ng/mL [facility] Comment: CANCER CENTER Procalcitonin > 2.00 ng/mL: [...] with extended dilution as it exceeds the real estate account executive's recommended limit. Caution should be exercised when interpreting such values and done in conjunction with clinical context. Specimen Blood Performing Organization Address [facility] Phon e Number [facility] CANCER Unless otherwise noted, [place] [address] CENTER all lab tests performed by: Division of Pathology and Laboratory Medicine [address] (ABNORMAL) Cardiac Panel (07/08/2021 12:13 PM BOOK ILLUSTRATOR) CK 112 39 - 308 U/L [facility] CK MB 2.4 <=10.4 ng/mL [facility] Troponin T 36 (H) <=18 ng/L [facility] Comment: CANCER CENTER < 19 ng/L Suggest [...] low results. Specimen Blood Performing Organization Address [facility] Phon e Number [facility] Unless otherwise noted, [address] all lab tests performed by: Division of Pathology and Laboratory Medicine [facility] (ABNORMAL) D Dimer (07/08/2021 12:13 PM BOOK ILLUSTRATOR) D-Dimer 0.77 (H) 0.10 - 0.50 [facility] Comment: mcg/ml U CANCER CENTER Rechecked and Verified The cut off value for exclusion of venous thromboembol ism is <0.51 mcg/mL FEUs (fibrinogen equivalent units). Specimen Blood Performing Organization Address [facility] Phon e Number [facility] Unless otherwise noted, [address] all lab tests performed by: Division of Pathology and Laboratory Medicine [address] X-ray Chest 1 View (07/08/2021 11:38 AM BOOK ILLUSTRATOR) Anatomical Region Laterality Modality Chest Digital Radiography Specimen Impressions [id number] - 07/08/2021 11:41 AM BOOK ILLUSTRATOR No acute infiltrates are visualized. Narrative [id number] - 07/08/2021 11:41 AM BOOK ILLUSTRATOR FULL RESULT: Examination: XR CHEST 1 VW, [...] Organization Address City/State/ZIP Code Phon e Number [id number] CT Head without Contrast (07/08/2021 11:05 AM BOOK ILLUSTRATOR) Anatomical Region Laterality Modality Head Computed Tomography Specimen Impressions [id number] - 07/08/2021 11:37 AM BOOK ILLUSTRATOR No acute intracranial abnormality. Narrative [id number] - 07/08/2021 11:37 AM BOOK ILLUSTRATOR FULL RESULT: EXAMINATION: CT HEAD WO CONTRAST [...] No acute intracranial abnormality. Performing Organization Address [facility] Phon e Number [id number] (ABNORMAL) NT-Pro BNP (In-House) (06/22/2021 11:54 AM BOOK ILLUSTRATOR) Pathologist Sig nature NT ProBNP 1,199 (H) <=125 pg/mL [facility] Specimen Blood Performing Organization Address [facility] Phon e Number [facility] CANCER Unless otherwise noted, [address] all lab tests performed by: Division of Pathology and Laboratory Medicine [address] [facility] CK[facility] (06/22/2021 11:54 AM BOOK ILLUSTRATOR) Pathologist Sig nature CK MB 2.6 <=10.4 ng/mL [facility] Specimen Blood Performing Organization Address [facility] Phon e Number [facility] CANCER Unless otherwise noted, [address] all lab tests performed by: Division of Pathology and Laboratory Medicine [address] [facility] Creatine Kinase (06/22/2021 11:54 AM BOOK ILLUSTRATOR) Pathologist Sig nature CK 84 39 - 308 U/L [facility] Specimen Blood Performing Organization Address [facility] Phon e Number [facility] CANCER Unless otherwise noted, [address] all lab tests performed by: Division of Pathology and Laboratory Medicine [address] Head/Neck Simulation without Contrast (06/21/2021 9:00 AM BOOK ILLUSTRATOR)Only the most recent of2 resultswithin the time period is included. Anatomical Region Laterality Modality Head, Neck Computed Tomography Specimen Narrative Systemgenerated, Documentation - 022 9:00 AM BOOK ILLUSTRATOR This procedure requires no interpretatio n from the radiologist. COVID-19 (MAURA-CoV-2) PCR Asymptomatic (05/11/2021 9:05 AM BOOK ILLUSTRATOR)Only the most recent of2 resultswithin the time period is included. COVID19 SARS Pre-Out of OR [facility] Indication Procedure CANCER [place] COVID19 SARS Result Not Detected Not Detected [facility] COVID19 SARS SARS-CoV-2 NOT Detected. [facility] Interpretation CANCER CENTER Reference Range: Not Detected Methodology: The [employer] Real Time SARS-CoV-2 assay is a qualitative real-time reverse machine stripper polymerase chain reaction (screw machine operator swiss type-PCR) test to detect RNA from SARS-CoV-2 in nasal, nasopharyngeal and oropharyngeal swabs from patients with signs and symptoms of infection who ar e suspected of COVID-19 by their health care provider. The [employer] RealTime SARS-CoV-2 performed on the uShip000 System is a dual target assay with [...] sole basis for patient management decisions. The [employer] RealTime SARS-CoV -2 assay is for in vitro diagnostic use under FDA Emergency Use Authorization only. Testing is limited to laboratories certified under the Clinical Laboratory Improvement Tiffanie ndments of 1988 (CLIA), 42U.S.C. 263a, to perform high complexity tests. The T est was performed by the CLIA-certified, high- complexity Molecular Diagnostics Laboratory (MDL) at [facility] under the Food and Drug Administration (FDA) s Emergency Use Authorization. Factsheet for patients: https://www.[facility].org/Abb ottFactSheetPatients Factsheet for healthcare pro viders: https://www.[facility].org/AbbottFactSheetHCP Test performed by: The [facility] cular Diagnostic Lab [address] [place] [address] Specimen Nasopharyngeal Swab Performing Organization Address City/[facility]/ZIP Code Phon e Number [facility] CANCER Unless otherwise noted, [place] [address] CENTER all lab tests performed by: Division of Pathology and Laboratory Medicine Kinza Whyte Orthopantogram (05/06/2021 10:53 AM BOOK ILLUSTRATOR) Anatomical Region Laterality Modality Other Specimen Narrative Systemgenerated, Documentation - 021 10:53 AM BOOK ILLUSTRATOR This procedure requires no interpretatio n from the radiologist. ROCK CRUSHER OPERATOR Videostroboscopy (05/06/2021 9:58 AM BOOK ILLUSTRATOR) Narrative OLYMPUS - 05/06/2021 9:58 AM BOOK ILLUSTRATOR Sara Harris, PhD 05/06/2021 10:12 AM ROCK CRUSHER OPERATOR Videostroboscopy Laterality (if applicable): right Date/Time: 05/06/2021 9:58 AM Provider Information: Performed by: Sara Harris, PhD Authorized by: OUMAR Staples Indication: Indications for procedure: abnormal symp paulo Abnormal symptom: dysphonia Anesthesia: Local anesthesia used?: local anesthesia used Anesthesia: topical application Local anesthetic: lidocaine spray Sedation: Patient sedated?: patient not sedated Performing Organization Address City/[facility]/ZIP Code Phon e Number OLYMPUS Glucose, Random (05/04/2021 11:10 AM BOOK ILLUSTRATOR) Glucose Random 136 70 - 199 mg/dL [facility] Comment: CANCER CENTER Effective 12/29/15, the gluco se reference intervals have been updated based on [place] Diabetes Association guidelines (Standards of Medical Care in Diabetes 2016. Diabetes Care 2016; 39: S13-S22). Fasting blood glucose: Normal: 70-99 mg/dL Impaired fasting glucose (in creased risk for diabetes or pre-diabetes): 100- 125 mg/dL Diabetes mellitus: >/=126 mg/dL Random blood glucose: Normal: 70-199 mg/dL Note: Random glucose >100 mg/dL is assoc iated with increased risk for diabetes Specimen Blood Narrative [facility] - 12:55 PM BOOK ILLUSTRATOR Not fasting Performing Organization Address City/[facility] Phon e Number [facility] CANCER Unless otherwise noted, [address] all lab tests performed by: Division of Pathology and Laboratory Medicine [facility] Vitamin D 25OH (05/04/2021 11:10 AM BOOK ILLUSTRATOR) [facility] Vitamin D 25 OH 42 30 - 100 ng/mL [facility] Comment: CANCER CENTER Reference Range: Deficiency: <10 ng/mL Insufficiency: 10-29 ng/mL Sufficiency: 30-100 ng/mL Potential toxicity: >100 ng/mL Specimen Blood Performing Organization Address City/[facility] Phon e Number [facility] CANCER Unless otherwise noted, [place] [address] CENTER all lab tests performed by: Division of Pathology and Laboratory Medicine [facility] HCV Ab Path Interp (05/03/2021 8:26 AM BOOK ILLUSTRATOR) [facility] HCV Ab Path There is NO serologic evidence of Hepatitis C vi autumn antibody. [facility] DON[facility] Interp Comment: CENTER RUFINO FERNANDEZ, Dictated by: RUFINO FERNANDEZ, Dictated Date/Time: 05.04.20 6:33 AM BOOK ILLUSTRATOR Transcribed Date/Time: 05.04.2021 6:33 AM BOOK ILLUSTRATOR Electronically Signed By: RUFINO FERNANDEZ, on 1 07.05.2020 6:33 AM C Specimen Blood Performing Organization Address [facility] Phon e Number [facility] [address] [place] [id number] Hepatitis C Virus Ab (05/03/2021 8:26 AM BOOK ILLUSTRATOR) [facility] HCVAb. Non Reactive Non Reactive [facility] Comment: CENTER Antibody detection in the im munocompromised and immunosuppressed population may be delayed or absent entirely. Therefore serial testing, correlation with other clinical findings, and supplemental testin g (if available) should be taken into consideration when interpreting the results. Performed at: [facility] [address] [place] [id number] Specimen Blood Performing Organization Address [facility] Phon e Number [facility] [place] [address] POC Creatinine (05/03/2021 6:56 AM BOOK ILLUSTRATOR) [facility] POC Crea 1.2 0.6 - 1.3 POC [...] OP CTRComment: POC TELCOR Radiology OP CTR [facility], [address] [facility], [place] [address]; [facility] Receptionist: Brooke Owens MD Specimen Blood Performing Organization Address City/State/ZIP Code Phon e Number POC TELCOR OSI PET CT Skull to Mid Thigh (04/07/2021 1:24 PM CDT) Anatomical Region Laterality Modality Head Other Specimen Narrative Systemgenerated, Documentation - 1:24 PM BOOK ILLUSTRATOR Study acquired at another institution. For comparison only. No MD Licea originated interpretation requested or a vailable. Pathology Outside Interpretation (03/28/2021) Pathologist Sig nature Materials Received Accession#, Stained, Block, Unstained Collect ed Received [facility] A. [id number], 6 SS, 0 BLOCKS, 0 USS 03/28/2021 Addendum 1 Additional material received on 05/25/2021, Outside 0 SS, 3 BLOCK, 0 USS, collected on 03/28/2021. MD [facility] Addendum electronically signed Deeper levels of block (21:I [id number]) were examined. The original diagnosis remains unchanged. by Saychris Pritchard MD on 06/13/2021 at 2 :17 PM Diagnosis Outside ([id number], 6 SS): [facility] E lectronically signed by Rigo Gallardo Larynx, right arytenoid, biopsy (A): MD Macho on SQUAMOUS CELL CARCINOMA, suspicious for invasion 04/21/2021 at 4:09 PM Larynx, left arytenoid, biopsy (B): Squamous mucosa with chronic inflammation, negative fo r tumor Larynx, left false vocal cord, biopsy (C): Squamous mucosa and minor salivary gland, negative for tumor SM/FHN Anesthesia Associate(s) Dr. Marisela Hollingsworth [facility] has reviewed part A and concurs. Biomarker Block(s) T: A [facility] N: C Disclaimer "Some tests reported [facility] here may have been developed and performance characteristics determined by [facility]. These tests have not been specifically cleared or approved by the U.S. Food and Drug Administration. If applicable, controls were reviewed and showed appropriate reactivity." Specimen Tissue Performing Organization Address City/State/ZIP Code Phon e Number [facility] [place] [address] [address] [place] [facility] Chest (03/24/2021 1:24 PM CDT) Anatomical Region Laterality Modality Chest Other Specimen Narrative Systemgenerated, Documentation - 021 1:24 PM BOOK ILLUSTRATOR Study acquired at another institution. For comparison only. No [facility] originated interpretation requested or a vailable. after 10/14/2020 Insurance Payer Benefit Plan Subscriber ID Effective Phone Address Typ e / Group Dates MEDICARE MEDICARE PART [id number] 2014-Prese [phone] [facility] Medicare A AND B nt [address] [employer] [address] [place] [id number] [employer] OF [id number] 2015-Prese [id number] [facility] [place] [address] [phone] (Work) Roland Lam Personal/Family Self [address] (Home) [place] [address] Advance Directives Code Status Date Activated Date Inactivated Comments Full Code 08/26/2021 7:24 PM 08/31/2021 6:23 PM Full Code 08/25/2021 9:45 PM 08/26/2021 7:24 PM Full Code 07/08/2021 4:32 PM 07/12/2021 11:02 PM Care Teams Painter Barrel Relationship Specialty Start Date End Date Olivia Coleman DO PCP - External Otolaryngology 04/13/21 [address] [place] [address] Slava Canseco, PCP - General Radiation Oncology 04/25/[address] [place] [id number] Yumi Desir MD Consulting Physician Head and Neck Medical 05/13/[address] [place] [address] [place] [address] Ene Polk MD Consulting Physician Head and Neck Surgery 05/13/[address] [place] [id number] Camilla Davenport, Clinical Dietitian Nutrition 07/19/[address] [address] Anca Maurer, Nurse Practitioner Head and Neck Medical 08/15/21 [facility] Oncology [address] [place] [id number] Michael Lam, Consulting Physician Gastroenterology, 09/05/21 Hepatology and Nutrition [address] [place] [id number] Brady Payan, Consulting Physician Gastroenterology, 09/07/21 Hepatology and Nutrition [address] [place] [id number]
--- OUTSIDE RECORDS SUMMARY | 2021-10-14 12:22 | XMS REPORT | Continuity of Care Document ---
:1950 Author Organization [facility] t Address [address] [place] [address] Care Team Providers Name Role Phone [phone] Primary Care Physician Unavailable SYSTEM, NOT IN Attending Clinician Unavailable Arnaldo Bullard Attending Clinician Unavailable ALEXEI Attending Clinician Unavailable ALOK ARIZA Attending Clinician Unavailable Samantha MEJIA Attending Clinician Unavailable Ruben RAYA Attending Clinician Unavailable EUNICE Attending Clinician Unavailable SIENNA Attending Clinician Unavailable Pb TORO Attending Clinician Unavailable Miguel VARGAS Attending Clinician Unavailable GERDA Attending Clinician Unavailable WENDI Attending Clinician Unavailable PADMINI Attending Clinician Unavailable BRYCE Attending Clinician Unavailable KHALIDA PRUITT Attending Clinician Unavailable KAYE Attending Clinician Unavailable JANAE Attending Clinician Unavailable BRAD Attending Clinician Unavailable BRANDYN Attending Clinician Unavailable WENDI Admitting Clinician Unavailable RADHA MADRIGAL Admitting Clinician Unavailable Payers Payer Name Policy Type Policy Number Effective Date Expiration Date Skinny sanchez MEDICARE PART A [id number] 2014 AND B 00:00:00 [facility] EVGENY [id number] 2015 00:00:00 Problems This patient has no known problems. Allergies, Adverse Reactions, Alerts Allergy Allergy Status Severity Reaction(s) Onset Inactive Treating Comm ents Source Name Type Date Date Clinician Ultram Adverse Active Info Not Common Reaction Available [facility] Medications Ordered Filled Start Stop Current Ordering Indication Dosage Frequency Signature Comments Components Source Medication Medication Date Date Medication? Clinician (SIG) Name Name Metformin Metformin Yes Na Bullard 1 tablet Common HCl HCl 7-02 with a Spirit 00:00: meal - [facility] 00 [facility] Montelukast Montelukast 2020-0 Yes Na Bullard 1 tablet Common Sodium Sodium 4-21 Spirit 00:00: - 00 [facility] Cialis Cialis Yes Na Bullard 1 tablet Comm on [facility] Metoprolol Metoprolol Yes Na Bullard 1 tablet Common Tartrate Tartrate with food Sp franco [facility] Dexilant Dexilant Yes Na Bullard TAKE ONE Common (1) Spirit CAPSULE(S) - [facility] BY [facility]TH [facility] ONCE A [facility] Plavix Plavix Yes Na Bullard 1 tablet Comm on [facility] Plavix Plavix Yes Na Bullard 1 tablet Comm on [facility] Ventolin Ventolin Yes Na Bullard 2 puffs as Common HFA HFA needed [facility] Nicotine Nicotine Yes Na Bullard 1 patch to Common Step 1 Step 1 skin [facility] Cetirizine Cetirizine Yes Na Bullard 1 tablet Common HCl HCl [facility] Cetirizine Cetirizine Yes Na Bullard TAKE ONE Common HCl HCl (1) Spirit TABLET(S) - [facility] BY MOUTH [facility] ONCE A DAY. [facility] Simvastatin Simvastatin Yes Na Bullard 1 tablet Common in the [facility] evening [facility] Nystatin Nystatin Yes Na Bullard 4 ml Comm on [facility] Fenofibrate Fenofibrate Yes Na Bullard 1 tablet Common with food [facility] Symbicort Symbicort Yes Na Bullard 2 puffs Common [facility] Flonase Flonase Yes Na Bullard 2 spray in Common each [facility] nostril [facility] Procedures This patient has no known procedures. Encounters Start End Encounter Admission Attending Care Care Encounter Source Date/Time Date/Time Type Type Clinicians Facility Department ID 2021-09-21 Outpatient SYSTEM, LOLITA MCHUGH [id number] 11:18:24 PROVIDER Chuckyreginald patel 2021-09-20 [facility] [id number] Common 09:33:02 [facility] 2021-09-19 Outpatient Bullard, Na STLMLC STLMLC [id number] Common 16:18:04 [facility] 2021-07-09 Inpatient [facility] [id number] 15:00:36 Jeanmarie ASKEW 2021-06-29 Outpatient Bullard, Na STLMLC STLMLC [id number] Common 11:54:04 [id number] [facility] 2021-06-29 Outpatient Bullard, Na STLMLC STLMLC [id number] Common 11:30:38 [id number] [facility] 2021-06-29 Outpatient Bullard, Na STLMLC STLMLC [id number] Common 11:28:27 [id number] [facility] 2021-06-29 Outpatient Bullard, Na STLMLC STLMLC [id number] Common 11:24:06 [id number] [facility] 2021-04-13 Outpatient [facility] [id number] 19:44:15 PROVIDER Chucky patel 2021-10-07 2021-10-07 ambulatory STLMLC STLMLC [id number] Common 00:00:00 00:00:00 [facility] 2021-10-06 2021-10-06 ambulatory STLMLC STLMLC [id number] Common 00:00:00 00:00:00 [facility] 2021-10-04 2021-10-04 ambulatory STLMLC STLMLC [id number] Common 00:00:00 00:00:00 [facility] 2021-09-30 2021-09-30 ambulatory STLMLC STLMLC [id number] Common 00:00:00 00:00:00 [facility] 2021-09-29 2021-09-29 ambulatory STLMLC STLMLC [id number] Common 00:00:00 00:00:00 [facility] 2021-09-29 2021-09-29 ambulatory STLMLC STLMLC [id number] Common 00:00:00 00:00:00 [facility] 2021-09-28 2021-09-28 Outpatient DARYL LAU MDA MDA [id number] 15:18:06 15:18:15 Chucky patel 2021-09-23 2021-09-23 Outpatient DOROTHY MEJIA MDA MDA [id number] 11:00:00 23:59:00 BARNEY patel 2021-09-23 2021-09-23 Outpatient DOROTHY MEJIA, MDA MDA [id number] 10:00:00 10:59:00 BARNEY patel 2021-09-22 2021-09-22 ambulatory STLMLC STLMLC [id number] Common 00:00:00 00:00:00 [facility] 2021-09-21 2021-09-21 Outpatient DARYL LAU MDA MDA [id number] 12:58:44 23:59:00 Chucky patel 2021-09-21 2021-09-21 Outpatient NKECHI ROGERS MDA MDA [id number] 14:34:29 16:07:25 Chucky patel 2021-09-20 2021-09-20 Outpatient DARYL LAU MDA MDA [id number] 13:05:31 23:59:00 Chucky patel 2021-09-20 2021-09-20 Outpatient DOROTHY DAWSON, MDA MDA [id number] 12:55:00 13:04:00 JM patel 2021-09-20 2021-09-20 Outpatient DARYL LAU MDA MDA [id number] 11:00:00 12:01:00 Chucky patel 2021-09-20 2021-09-20 Outpatient DOROTHY DAWSON, MDA MDA [id number] 10:45:00 10:59:00 JM patel 2021-09-19 2021-09-19 ambulatory STLMLC STLMLC [id number] Common 00:00:00 00:00:00 [facility] 2021-09-07 2021-09-07 Outpatient DARYL LAU MDA MDA [id number] 14:30:45 14:30:45 Chucky patel 2021-09-07 2021-09-07 Outpatient DARYL LAU MDA MDA [id number] 12:16:23 12:16:23 Chucky o amanda 2021-09-06 2021-09-06 Outpatient DOROTHY DAWSON MDA MDA [id number] 14:15:00 23:59:00 JM patel 2021-09-06 2021-09-06 ambulatory STLC STLMLC [id number] Common 00:00:00 00:00:00 [facility] 2021-09-05 2021-09-05 Outpatient DARYL LAU MDA MDA [id number] 10:24:00 10:24:00 Chucky o amanda 2021-08-25 2021-08-31 Inpatient UR FORTIQUE, MDA Hosp Med [id number] 17:50:00 16:18:00 DAVIS Locke o amanda 2021-08-31 2021-08-31 Inpatient DARYL LAU MDA MDA [id number] 14:19:25 14:19:27 Chucky o amanda 2021-08-29 2021-08-29 Inpatient DARYL LAU MDA MDA [id number] 10:07:53 10:07:55 Chucky o amanda 2021-08-26 2021-08-26 Outpatient DOROTHY TORO, MDA MDA [id number] 00:20:55 00:34:46 SUSAN Locke o amanda 2021-08-25 2021-08-25 Outpatient DOROTHY VARGAS, MDA MDA [id number] 12:28:34 12:35:55 LLOYD Patel so amanda 2021-08-25 2021-08-25 Outpatient DARYL LAU MDA MDA [id number] 10:54:44 10:54:44 Chucky o amanda 2021-08-22 2021-08-22 Outpatient DOROTHY DAWSON, MDA MDA [id number] 09:00:00 23:59:00 JM patel 2021-08-20 2021-08-20 Outpatient DOROTHY DAWSON, MDA MDA [id number] 14:40:16 14:50:18 JM Locke o amanda 2021-08-17 2021-08-17 Outpatient DARYL LAU MDA MDA [id number] 13:23:18 13:23:18 Chucky o amanda 2021-08-02 2021-08-02 Outpatient DARYL LAU MDA MDA [id number] 09:02:07 09:02:07 Chucky o amanda 2021-07-19 2021-07-19 Outpatient DARYL LAU MDA MDA [id number] 15:33:56 15:33:56 Chucky o n 2021-07-19 2021-07-19 ambulatory STLMLC STLMLC [id number] Common 00:00:00 00:00:00 [facility] 2021-07-18 2021-07-18 Outpatient DARYL LAU MDA MDA [id number] 15:31:07 15:31:07 Chucky o amanda 2021-07-13 2021-07-13 Outpatient DOROTHY LORENZ MDA MDA [id number] 13:44:18 13:44:18 AQUILINO Locke o amanda 2021-07-08 2021-07-12 Inpatient TANNER ADAME, LOLITA Hosp Med [id number] 10:33:00 21:00:00 LACY Locke o amanda 2021-07-09 2021-07-09 Inpatient DOROTHY HOBBS- MDA MDA [id number] 14:37:39 15:13:17 Chucky ASKEW 2021-07-08 2021-07-08 Outpatient DARYL LAU MDA MDA [id number] 09:19:33 10:32:00 Chucky o amanda 2021-07-08 2021-07-08 Outpatient DARYL LAU MDA MDA [id number] 08:15:00 09:18:00 Chucky o amanda 2021-07-07 2021-07-07 Outpatient DARYL LAU MDA MDA [id number] 20:19:41 23:59:00 Chucky o amanda 2021-07-07 2021-07-07 Outpatient DARYL LAU MDA MDA [id number] 10:00:00 20:18:00 Chucky o amanda 2021-07-07 2021-07-07 Outpatient DARYL LAU MDA MDA [id number] 09:45:00 09:59:00 Chucky o amanda 2021-07-06 2021-07-06 Outpatient DARYL LAU MDA MDA [id number] MD 11:21:54 23:59:00 Chucky nic patel 2021-07-06 2021-07-06 Outpatient DARYL LAU MDA MDA [id number] MD 13:41:27 22:23:25 Chucky patel 2021-07-06 2021-07-06 Outpatient DOROTHY DAWSON MDA MDA [id number] MD 15:25:17 15:25:17 JM patel 2021-07-06 2021-07-06 Outpatient DARYL LAU MDA MDA [id number] MD 13:22:42 14:24:35 Chucky nic patel 2021-07-06 2021-07-06 Outpatient DARYL LAU MDA MDA [id number] MD 09:27:40 11:20:00 Chucky patel 2021-07-06 2021-07-06 Outpatient DARYL LAU MDA MDA [id number] 08:45:00 09:26:00 Chucky nic patel 2021-07-05 2021-07-05 Outpatient DARYL LAU MDA MDA [id number] 09:07:24 23:59:00 Chucky o amanda 2021-07-04 2021-07-04 Outpatient DOROTHY LORENZ, MDA MDA [id number] MD 12:15:00 23:59:00 AQUILINO patel 2021-07-04 2021-07-04 Outpatient DARYL LAU MDA MDA [id number] 09:23:55 12:14:00 Chucky o amanda 2021-07-04 2021-07-04 Outpatient DOROTHY LORENZ, MDA MDA [id number] MD 09:15:00 09:22:00 AQUILINO patel 2021-07-01 2021-07-01 Outpatient DARYL LAU MDA MDA [id number] MD 09:26:55 23:59:00 Chucky o amanda 2021-07-01 2021-07-01 Outpatient DOROTHY DAWSON MDA MDA [id number] MD 09:26:30 23:59:00 JM patel 2021-06-30 2021-06-30 Outpatient DARYL LAU MDA MDA [id number] 10:12:14 23:59:00 Chucky o amanda 2021-06-29 2021-06-29 Outpatient DARYL LAU MDA MDA [id number] 09:21:07 23:59:00 Chucky o amanda 2021-06-29 2021-06-29 Outpatient DARYL LAU MDA MDA [id number] 16:04:56 16:04:56 Chucky o amanda 2021-06-29 2021-06-29 Outpatient DOROTHY LORENZ MDA MDA [id number] 12:39:09 12:39:09 AQUILINO patel 2021-06-29 2021-06-29 Outpatient DARYL LUA MDA MDA [id number] 09:20:50 09:20:50 Chucky o amanda 2021-06-28 2021-06-28 Outpatient DARYL LAU MDA MDA [id number] 13:24:55 23:59:00 Chucky o amanda 2021-06-27 2021-06-27 Outpatient DARYL LAU MDA MDA [id number] 08:51:26 23:59:00 Chucky o amanda 2021-06-27 2021-06-27 Outpatient DOROTHY LORENZ MDA MDA [id number] 10:10:27 10:10:27 AQUILINO patel 2021-06-27 2021-06-27 Outpatient DOROTHY LORENZ MDA MDA [id number] 07:30:00 08:50:00 AQUILINO patel 2021-06-24 2021-06-24 Outpatient DARYL LAU MDA MDA [id number] 12:42:26 23:59:00 Chucky o amanda 2021-06-24 2021-06-24 Outpatient DARYL LAU MDA MDA [id number] 10:45:00 12:41:00 Chucky o amanda 2021-06-24 2021-06-24 [facility] [id number] 00:00:00 00:00:00 PAT [facility] 2021-06-23 2021-06-23 Outpatient DARYL LAU MDA MDA [id number] 10:41:38 23:59:00 Chucky o amanda 2021-06-23 2021-06-23 Outpatient DARYL LAU MDA MDA [id number] MD 10:30:12 10:40:00 Chucky patel 2021-06-22 2021-06-22 Emergency ER BRYCE, MDA Emergency [id number] MD 11:11:00 20:15:00 NICHOLE patel 2021-06-22 2021-06-22 Outpatient DARYL LAU MDA MDA [id number] MD 09:50:00 11:10:00 Chucky o amanda 2021-06-21 2021-06-21 Outpatient DARYL LAU MDA MDA [id number] MD 08:00:52 23:59:00 Chucky o amanda 2021-06-21 2021-06-21 Outpatient DOROTHY DAWSON, MDA MDA [id number] MD 07:58:46 07:59:00 JM patel 2021-06-20 2021-06-20 Outpatient DOROTHY LORENZ, MDA MDA [id number] MD 08:14:09 23:59:00 AQUILINO patel 2021-06-20 2021-06-20 Outpatient DOROTHY LORENZ, MDA MDA [id number] MD 07:58:43 08:13:00 AQUILINO patel 2021-06-17 2021-06-17 Outpatient DARYL LAU MDA MDA [id number] MD 11:45:00 23:59:00 Chucky o amanda 2021-06-16 2021-06-16 Outpatient DARYL LAU MDA MDA [id number] 11:42:10 23:59:00 Chucky o amanda 2021-06-16 2021-06-16 Outpatient DARYL LAU MDA MDA [id number] MD 16:11:01 16:11:01 Chucky o amanda 2021-06-15 2021-06-15 Outpatient DOROTHY MEJIA, MDA MDA [id number] MD 10:37:55 23:59:00 BARNEY Locke o amanda 2021-06-15 2021-06-15 Outpatient DARYL LAU MDA MDA [id number] MD 11:27:15 14:11:36 Chucky o amanda 2021-06-15 2021-06-15 Outpatient DARYL LAU MDA MDA [id number] MD 08:16:55 10:36:00 Chucky o amanda 2021-06-15 2021-06-15 Outpatient CANDY LAUY MDA MDA [id number] MD 07:19:30 08:15:00 Chucky o amanda 2021-06-14 2021-06-14 Outpatient DARYL LAU MDA MDA [id number] MD 20:31:13 23:59:00 Chucky o n 2021-06-14 2021-06-14 Outpatient DARYL LAU MDA MDA [id number] 08:01:28 20:30:00 Chucky o amanda 2021-06-13 2021-06-13 Outpatient DOROTHY LORENZ MDA MDA [id number] MD 09:15:00 23:59:00 AQUILINO Locke o amanda 2021-06-13 2021-06-13 Outpatient DARYL LAU MDA MDA [id number] 08:20:58 09:14:00 Chucky o amanda 2021-06-13 2021-06-13 Outpatient DARYL LAU MDA MDA [id number] 08:08:42 08:19:00 Chucky o amanda 2021-06-13 2021-06-13 Outpatient DOROTHY LORENZ MDA MDA [id number] MD 06:30:00 08:07:00 AQUILINO Locke o amanda 2021-06-10 2021-06-10 Outpatient DARYL LAU MDA MDA [id number] 09:48:20 23:59:00 Chucky o amanda 2021-06-09 2021-06-09 Outpatient DARYL LAU MDA MDA [id number] MD 08:15:00 23:59:00 Chucky o n 2021-06-08 2021-06-08 Outpatient CANDY LAUY MDA MDA [id number] MD 20:55:35 23:59:00 Chucky o n 2021-06-08 2021-06-08 Outpatient DARYL LAU MDA MDA [id number] 13:28:31 20:54:00 Chucky o amanda 2021-06-08 2021-06-08 Outpatient DARYL LAU MDA MDA [id number] 16:41:38 16:41:38 Chucky patel 2021-06-08 2021-06-08 Outpatient DOROTHY DAWSON, MDA MDA [id number] MD 10:37:41 13:27:00 JM patel 2021-06-08 2021-06-08 Outpatient DOROTYH LORENZ, MDA MDA [id number] MD 09:30:54 09:30:54 AQUILINO patel 2021-06-07 2021-06-07 Outpatient DARYL LAU MDA MDA [id number] 11:48:52 23:59:00 Chucky patel 2021-06-06 2021-06-06 Outpatient DARYL LAU MDA MDA [id number] 13:38:56 23:59:00 Chucky patel 2021-06-06 2021-06-06 Outpatient DOROTHY LORENZ, MDA MDA [id number] 07:00:00 13:37:00 AQUILINO patel 2021-06-06 2021-06-06 Outpatient DOROTHY LORENZ, MDA MDA [id number] 06:30:00 06:59:00 AQUILINO patel 2021-06-02 2021-06-02 Outpatient DARYL LAU MDA MDA [id number] 06:16:14 23:59:00 Chucky patel 2021-06-01 2021-06-01 Outpatient MARIA DEL ROSARIO RIVAS MDA MDA [id number] 10:37:44 23:59:00 Chucky patel 2021-06-01 2021-06-01 Outpatient DOROTHY RESTREPO, MDA MDA [id number] 13:15:31 14:00:28 CLINT patel 2021-06-01 2021-06-01 Outpatient DARYL LAU MDA MDA [id number] 06:18:07 10:36:00 Chucky patel 2021-05-31 2021-05-31 Outpatient DARYL LAU MDA MDA [id number] 14:02:11 23:59:00 Chucky o amanda 2021-05-31 2021-05-31 Outpatient DARYL LAU MDA MDA [id number] 09:00:07 20:53:44 Chucky o amanda 2021-05-31 2021-05-31 Outpatient DOROTHY CARDOSO, MDA MDA [id number] 15:31:35 15:31:35 [facility] Chucky patel 2021-05-31 2021-05-31 Outpatient DARYL LAU MDA MDA [id number] 05:46:59 14:01:00 Chucky o amanda 2021-05-30 2021-05-30 Outpatient DARYL LAU MDA MDA [id number] 06:55:13 23:59:00 Chucky o amanda 2021-05-30 2021-05-30 Outpatient DOROTHY LORENZ, MDA MDA [id number] 11:10:48 11:10:48 AQUILINO patel 2021-05-30 2021-05-30 Outpatient DOROTHY LORENZ, MDA MDA [id number] 06:15:00 06:54:00 AQUILINO patel 2021-05-25 2021-05-25 Outpatient DARYL LAU MDA MDA [id number] 08:51:12 23:59:00 Chucky nic patel 2021-05-25 2021-05-25 Outpatient DOROTHY LORENZ, MDA MDA [id number] 10:29:47 11:57:52 AQUILINO patel 2021-05-25 2021-05-25 Outpatient DARYL LAU MDA MDA [id number] 08:22:09 08:50:00 Chucky nic patel 2021-05-24 2021-05-24 Outpatient DARYL LAU MDA MDA [id number] 14:48:05 23:59:00 Chucky o amanda 2021-05-23 2021-05-23 Outpatient DARYL LAU MDA MDA [id number] 15:22:13 23:59:00 Chucky patel 2021-05-23 2021-05-23 Outpatient DOROTHY LORENZ, MDA MDA [id number] 08:29:28 15:21:00 QAUILINO patel 2021-05-23 2021-05-23 Outpatient DOROTHY LORENZ, MDA MDA [id number] 08:49:56 14:05:15 AQUILINO patel 2021-05-23 2021-05-23 Outpatient DARYL LAU MDA MDA [id number] 06:28:35 08:28:00 Chucky patel 2021-05-22 2021-05-22 Outpatient DARYL LAU MDA MDA [id number] 14:50:33 23:59:00 Chuckyreginald patel 2021-05-19 2021-05-19 Outpatient DARYL LAU MDA MDA [id number] 11:03:15 13:40:55 Chucky patel 2021-05-18 2021-05-18 Outpatient DOROTHY DAWSON, MDA MDA [id number] 09:16:35 23:59:00 JM patel 2021-05-18 2021-05-18 Outpatient DARYL LAU MDA MDA [id number] 15:19:23 15:19:23 Chucky patel 2021-05-16 2021-05-16 Outpatient DARYL LAU MDA MDA [id number] 08:30:00 23:59:00 Chucky patel 2021-05-11 2021-05-11 Outpatient DARYL LAU MDA MDA [id number] 12:11:49 23:59:00 Chucky patel 2021-05-11 2021-05-11 Outpatient DOROTHY LORENZ MDA MDA [id number] 13:49:12 16:28:29 AQUILINO patel 2021-05-11 2021-05-11 Outpatient DOROTHY DAWSON MDA MDA [id number] 08:59:55 15:39:22 JM patel 2021-05-11 2021-05-11 Outpatient DOROTHY DAWSON, MDA MDA [id number] 10:00:00 12:10:00 JM patel 2021-05-11 2021-05-11 Outpatient DOROTHY DAWSON, MDA MDA [id number] 09:15:00 09:59:00 JM patel 2021-05-09 2021-05-09 Outpatient DOROTHY SALINAS, MDA MDA [id number] 11:38:34 11:38:34 LEONID patel 2021-05-09 2021-05-09 Outpatient DARYL LAU MDA MDA [id number] 11:38:24 11:38:24 Chucky o amanda 2021-05-06 2021-05-06 Outpatient DOROTHY AHUMADA, MDA MDA [id number] MD 10:53:13 23:59:00 ARIANE Locke o amanda 2021-05-06 2021-05-06 Outpatient EL BRANDYN, MDA MDA [id number] MD 10:44:38 10:52:00 ARIANE Locke o amanda 2021-05-06 2021-05-06 Outpatient DOROTHY DAWSON, MDA MDA [id number] MD 08:30:00 10:43:00 JM patel 2021-05-06 2021-05-06 Outpatient DOROTHY MEJIA, MDA MDA [id number] MD 07:45:03 08:29:00 BARNEY patel 2021-05-04 2021-05-04 Outpatient DARYL LAU MDA MDA [id number] 10:40:00 23:59:00 Chucky o amanda 2021-05-04 2021-05-04 Outpatient DOROTHY DAWSON, MDA MDA [id number] MD 10:16:12 12:58:49 JM patel 2021-05-04 2021-05-04 Outpatient DOROTHY LORENZ, MDA MDA [id number] MD 09:45:00 10:39:00 AQUILINO patel 2021-05-03 2021-05-03 Outpatient DOROTHY DAWSON, MDA MDA [id number] MD 08:06:41 23:59:00 JM patel 2021-05-03 2021-05-03 Outpatient DOROTHY DAWSON, MDA MDA [id number] 06:25:36 06:25:36 JM patel 2021-05-02 2021-05-02 Outpatient EL MDA MDA [id number] MD 13:03:47 13:06:58 Chucky o amanda 2021-04-22 2021-04-22 Outpatient EL MDA MDA [id number] MD 11:48:16 11:48:16 Chucky o amanda 2021-04-22 2021-04-22 Outpatient EL MDA MDA [id number] MD 11:48:13 11:48:13 Chucky o amanda 2021-04-22 2021-04-22 Outpatient EL MDA MDA [id number] 11:48:12 11:48:12 Chucky o n 2021-04-22 2021-04-22 Outpatient EL MDA MDA [id number] 11:48:10 11:48:10 Chucky o n 2021-04-22 2021-04-22 Outpatient EL MDA MDA [id number] MD 11:48:08 11:48:08 Chucky o n 2021-04-22 2021-04-22 Outpatient EL MDA MDA [id number] MD 11:48:06 11:48:06 Chucky o n 2021-03-18 2021-03-18 Outpatient STLMLC STLMLC [id number] Common 00:00:00 00:00:00 [facility] 2021-02-15 2021-02-15 Outpatient STLMLC STLMLC [id number] Common 00:00:00 00:00:00 [facility] 2021-01-11 2021-01-11 Outpatient STLMLC STLMLC [id number] Common 00:00:00 00:00:00 [facility] 2020-10-26 2020-10-26 Outpatient [facility] [id number] [address] [place] [address] 00:00:00 00:00:00 PAT Guzman Method i 2020-04-07 2020-04-07 Outpatient STLMLC STLMLC [id number] Common 00:00:00 00:00:00 [facility] 2020-03-15 2020-03-15 Outpatient STLMLC STLMLC [id number] Common 00:00:00 00:00:00 [facility] 2020-02-11 2020-02-11 Out[facility] [id number] Common 09:19:00 09:19:00 t Specialty/[facility] 2019-12-23 2019-12-23 Outpatient [facility] [id number] Common 13:20:00 13:20:[address] [facility] 2019-12-12 2019-12-12 Out[facility] [id number] Common 11:00:00 11:00:[address] [facility] 2019-12-04 2019-12-04 [facility] [id number] Common 08:44:00 08:44:[address] [facility] 2019-11-21 2019-11-21 Out[facility] [id number] Common 16:47:00 16:47:00 t Specialty/U Sp franco Specialty rology - [facility] /[facility] Clinic [facility] 2019-11-14 2019-11-14 Out[facility] [id number] Common 08:00:00 08:00:[address] [facility] 2019-11-13 2019-11-13 Out[facility] [id number] Common 14:40:00 14:40:[address] [facility] 2019-10-24 2019-10-24 [facility] [id number] [address] [place] [address] 00:00:00 00:00:00 PAT [address] 2019-10-22 2019-10-22 Out[facility] [id number] Common 14:12:00 14:12:00 t Specialty/U Sp franco Specialty rology - [facility] /Urology Clinic [facility] 2019-10-14 2019-10-14 [facility] [id number] 809 [place] 00:00:00 00:00:00 PAT [address] Results This patient has no known results.
[2021-10-14] MEDS ORDERED: NA CHLORIDE 0.9% 500 ML ONE ×3 (12:47→17:47)
[2021-10-14 14:00] LABS: Protime INR 1.1
[2021-10-14 14:18] LABS: Absolute Lymphocytes (CBC) 0.6 K/uL (0.7-4.9); Hematocrit 20.7 % (39.6-49.0); Lymphocytes % 12.8 % (15.3-44.8); MPV 8.4 fL (7.6-11.3); RBC Red Blood Cell Count 2.57 M/uL (4.33-5.43)
[2021-10-14 14:23] LABS: Albumin 2.5 g/dL (3.4-5.0); Bilirubin Direct 0.2 mg/dL (0-0.2); Bilirubin Total 0.3 mg/dL (0.2-1.0); Magnesium 1.8 mg/dL (1.8-2.4); Potassium 3.9 mmol/L (3.5-5.1); Protein, Total 5.3 g/dL (6.4-8.2); Troponin High Sensitivity 48.2 pg/mL (<58.9)
[2021-10-14] MEDS ORDERED: PANTOPRAZOLE 40 MG INJ ONE (14:27)
--- NOTE | 2021-10-14 14:32 | RAD REPORT ---
EXAM DESCRIPTION: RAD - Chest Single View - 10/14/2021 2:19 pm CLINICAL HISTORY: general weakness Chest pain. COMPARISON: Chest Single View dated 10/04/2021; Chest Single View dated 10/02/2021; Chest Single View da mary 09/30/2021; Chest Single View dated 09/28/2021 FINDINGS: Portable technique limits examination quality. The lungs are grossly clear. The heart is normal in size. No displaced fractures. IMPRESSION: No acute intrathoracic process suspected.
[2021-10-14 14:43] LABS: Urine Blood Negative (Negative); Urine Glucose Negative (Negative); Urine Protein Negative (Negative); Urine Specific Gravity 1.015 (1.005-1.030)
[2021-10-14] MEDS ORDERED: NA CHLORIDE 0.9% 1,000 ML ONE (14:50)
--- NOTE | 2021-10-14 14:53 | EDPHYS ---
Physician Documentation [facility] Name: Roland Lam Age: 71 yrs Sex: Male : 1950 Arrival Date: 10/14/2021 Time: 12:14 Bed 7 Private MD: ED Physician Aaron Jaramillo HPI: 10/14 12:35 This 71 yrs old Male presents to ER via EMS with complaints of General Weakness, Nausea.cp 12:35 The patient's problem is reported as weakness, that is generalized. cp 12:35 Onset: The symptoms/episode began/occurred gradually, and became worse today. Duration: cp The episode is continuous. Associated signs and symptoms: Pertinent positives: dizziness, lightheadedness, nausea, Pertinent negatives: chest pain, confusion, palpitations, syncope. 12:35 Patient's baseline: Neuro: alert and fully oriented, Motor: no deficits, Ambulation: cp walks without assistance, Speech: normal. 12:35 Patient reports he checked blood pressure at home and systolic pressure was 45. cp Historical: - Allergies: 12:15 No Known Allergies; ll1 - PMHx: 12:15 CAD; COPD; Diabetes - NIDDM; High Cholesterol; THROAT CA; ll1 - PSHx: 12:15 no recent SX; ll1 - Immunization history:: Client reports receiving the 2nd dose of the Covid vaccine. - Social history:: Smoking status: Patient reports the use of cigarette tobacco products, denies chronic smoking, but will smoke occasionally. ROS: 12:40 Constitutional: Positive for poor PO intake, Negative for body aches, chills, fever. cp 12:40 Cardiovascular: Negative for chest pain, edema, palpitations. cp 12:40 Respiratory: Negative for cough, shortness of breath, wheezing. 12:40 Abdomen/GI: Positive for constipation, Negative for abdominal pain, vomiting, diarrhea. 12:40 Neuro: Positive for dizziness, near syncope, weakness, Negative for altered mental status, headache, syncope. 12:40 All other systems are negative. cp Exam: 12:30 ECG was reviewed by the Attending Physician. cp 12:45 Constitutional: The patient appears in no acute distress, alert, awake, cp non-diaphoretic, non-toxic, well developed, frail. 12:45 Head/Face: Normocephalic, atraumatic. cp 12:45 Eyes: Periorbital structures: appear normal, Pupils: equal, round, and reactive to light and accomodation, Extraocular movements: intact throughout, Conjunctiva: normal, no exudate, no injection, Sclera: no appreciated abnormality, Lids and lashes: appear normal, bilaterally. 12:45 ENT: External ear(s): are unremarkable, Nose: is normal, Mouth: Lips: dry, Oral mucosa: dry, Posterior pharynx: Airway: no evidence of obstruction, patent. 12:45 Neck: ROM/movement: is normal, is supple, without pain, no range of motions limitations, no meningismus, no nuchal rigidity. 12:45 Chest/axilla: Inspection: normal, Palpation: is normal, no crepitus, no tenderness. 12:45 Cardiovascular: Rate: normal, Rhythm: regular, Edema: is not appreciated, JVD: is not appreciated. 12:45 Respiratory: the patient does not display signs of respiratory distress, Respirations: cp normal, no use of accessory muscles, no retractions, labored breathing, is not present, Breath sounds: are clear throughout, no decreased breath sounds, no stridor, no wheezing. 12:45 Abdomen/GI: Inspection: abdomen appears normal, Palpation: abdomen is soft and cp non-tender, in all quadrants, Rectal exam: Stool: guaiac positive, dark colored. 12:45 Neuro: Orientation: to person, place \\T\\ time. Mentation: is normal, Motor: moves all fours, general weakness with no focal deficits, Sensation: is normal. 12:45 CT study not indicated or reported. Reason for not performing CT: no focal neuro cp deficits Vital Signs: 12:15 BP 111 / 48; Pulse 93; Resp 18; Temp 97.5; Pulse Ox 95% on R/A; Weight 58.97 kg; Height ll1 5 ft. 6 in. (167.64 cm); Pain 2/10; 12:20 BP 103 / 38; Pulse 90; ll1 12:37 BP 126 / 42 Supine; tp1 12:37 BP 106 / 49 Sitting; tp1 12:38 BP 65 / 39 Standing; tp1 12:45 BP 128 / 47; Pulse 88; ll1 13:15 BP 115 / 42; Pulse 90; Resp 20; Pulse Ox 94% ; ll1 14:00 BP 105 / 59; Pulse 82; Resp 20; Pulse Ox 95% ; ll1 15:27 BP 97 / 53; Pulse 83; Resp 20; Pulse Ox 98% on R/A; ll1 16:30 BP 121 / 55; Pulse 84; Pulse Ox 95% ; ll1 17:26 BP 130 / 63; Pulse 84; Resp 20; Pulse Ox 96% ; ll1 18:40 BP 117 / 52; Pulse 84; Resp 17; Temp 97.4; Pulse Ox 97% on R/A; ll1 19:25 BP 141 / 62; Pulse 98; Resp 16; Temp 98(O); Pulse Ox 99% ; ke1 19:55 BP 127 / 56; Pulse 86; Resp 14; Temp 98.3; Pulse Ox 93% on R/A; ke1 20:25 BP 130 / 58; Pulse 85; Resp 18; Temp 98.1(O); Pulse Ox 95% on R/A; ke1 20:55 BP 121 / 54; Pulse 86; Resp 18; Temp 98.1; Pulse Ox 97% on R/A; ke1 22:24 BP 128 / 73; Pulse 86; Resp 18; Pulse Ox 98% on R/A; ke1 12:15 Body Mass Index 20.98 (58.97 kg, 167.64 cm) ll1 MDM: 12:25 Patient medically screened. cp 13:00 Differential diagnosis: CVA, TIA, metabolic disorder, drug effects. cp 14:45 Data reviewed: vital signs, nurses notes, lab test result(s), EKG, radiologic studies, cp plain films. 14:45 Test interpretation: by ED physician or midlevel provider: ECG, plain radiologic cp studies. 14:49 ED course: attempt to contact GI, DR Mae and DR Dariel Mora in office cp reports they are not available for consult. Will attempt to transfer to MD Dorantes as requested by patient. 15:00 ED course: No GI available for consult today, will attempt to transfer to MD Shay dowd as requested by patient. 10/14 12:27 Order name: Basic Metabolic Panel; Complete Time: 14:36 cp 10/14 14:37 Interpretation: Normal except: NA 132; CL 90; CO2 37; GLUC 192; BUN 24. cp 10/14 12:27 Order name: CBC with Diff; Complete Time: 14:36 cp 10/14 14:37 Interpretation: Normal except: RBC 2.57; HGB 6.8; MCH 26.6; PLT 181; RDW 16.9; ARMEN% cp 77.5; LYM% 12.8; LYMA 0.6. 05 12:27 Order name: LFT's; Complete Time: 14:36 cp 10/14 15:02 Interpretation: Normal except: TP 5.3; ALB 2.5; A/G 0.9. cp 10/14 12:27 Order name: Magnesium; Complete Time: 14:36 cp 10/14 12:27 Order name: PT-INR; Complete Time: 14:36 cp 10/14 12:27 Order name: Troponin HS; Complete Time: 14:36 cp 10/14 12:27 Order name: Procalcitonin; Complete Time: 16:59 cp 10/14 12:27 Order name: Urine Microscopic Only; Complete Time: 16:59 cp 10/14 12:27 Order name: XRAY Chest (1 view); Complete Time: 14:36 cp 10/14 14:39 Order name: Type And Screen 10/14 14:42 Order name: COVID-19 SARS RT PCR (Document "Date of Onset" if Symptomatic); Complete jl7 Time: 16:59 10/14 14:44 Order name: Urine Dipstick-Ancillary; Complete Time: 15:02 EDPR 10/14 16:07 Order name: Packed RBC Leukored [facility] 10/14 16:55 Order name: ABO/RH no charge; Complete Time: 16:59 EDPR 10/14 12:27 Order name: EKG; Complete Time: 12:28 cp 10/14 12:27 Order name: Cardiac monitoring; Complete Time: 12:38 cp 10/14 12:27 Order name: EKG - Nurse/Tech; Complete Time: 12:38 cp 10/14 12:27 Order name: IV Saline Lock; Complete Time: 12:40 cp 10/14 12:27 Order name: Labs collected and sent; Complete Time: 12:40 cp 10/14 12:27 Order name: O2 Per Protocol; Complete Time: 12:38 cp 10/14 12:27 Order name: O2 Sat Monitoring; Complete Time: 12:38 cp 10/14 12:27 Order name: Urine Dipstick-Ancillary (obtain specimen); Complete Time: 17:09 cp 10/14 13:14 Order name: Labs - recollect needed: recollect labs, hemolyzed; Complete Time: 14:04 eb EC:30 Rate is 91 beats/min. Rhythm is regular. [place] interval is normal. QRS interval is normal. cp QT interval is normal. T waves are Inverted in leads II, III, aVF, V4, V5, V6. Interpreted by me. Reviewed by me. Administered Medications: 12:53 Drug: NS 0.9% 500 ml Route: IV; Rate: bolus; Site: left hand; ll1 13:30 Follow up: Response: No adverse reaction; IV Status: Completed infusion; IV Intake: jl7 500ml 14:30 Drug: ProTONIX (pantoprazole) 40 mg Route: IVP; Site: left hand; jl7 15:45 Follow up: Response: No adverse reaction ll1 14:50 Drug: NS 0.9% 500 ml Route: IV; Rate: bolus; Site: left forearm; ll1 17:10 Follow up: Response: No adverse reaction; IV Status: Completed infusion; IV Intake: 1 500ml 15:00 Drug: NS 0.9% 1000 ml Route: IV; Rate: 75 ml/hr; Site: left forearm; ll1 17:53 Follow up: IV Status: Infusion continued upon transfer jl7 15:45 Drug: ProTONIX (pantoprazole) 8 mg/hr Route: IV; Rate: 25 ml/hr; Site: left hand; ll1 17:53 Follow up: IV Status: Infusion continued upon transfer jl Disposition Summary: 10/14/21 14:53 Transfer Ordered Transfer Location: Other Acute Care Facility cp Reason: Higher level of care cp Condition: Stable cp Problem: new cp Symptoms: have improved cp Accepting Physician: Doctor(10/14/21 22:27) ke1 Diagnosis - Anemia in other chronic diseases classified elsewhere cp - GI Bleed/ Gastrointestinal hemorrhage, unspecified cp - Orthostatic hypotension cp - Dehydration cp Forms: - Medication Reconciliation Form cp - SBAR form cp Signatures: Dispatcher [employer] EDMS Jagdeep Rios PA PA cp Zainab Sheehan RN RN jl7 Savannah Guy Lynsay, RN RN ll1 Vik Castañeda RN RN ke1 Corrections: (The following items were deleted from the chart) 12:57 12:31 Head Brain Wo Cont+CT.RAD.BRZ ordered. EDMS EDMS 22:27 14:53 Doctor noemí trujillo
--- NOTE | 2021-10-14 14:53 | ER ---
Nurse's Notes [facility] Name: Roland Lam Age: 71 yrs Sex: Male : 1950 Arrival Date: 10/14/2021 Time: 12:14 Bed 7 Private MD: Diagnosis: Anemia in other chronic diseases classified elsewhere;GI Bleed/ Gastrointestinal hemorrhage, unspecified;Orthostatic hypotension;Dehydration Presentation: 10/14 12:15 Chief complaint: Patient states: Weak, lightheaded, nausea. BP 45/40 at home with a ll1 wrist cuff so they called 911. EMS states: BP 122/52, HR 91. Fingerstick 202. No fever. Coronavirus screen: Vaccine status: Patient reports receiving the 2nd dose of the covid vaccine. Client denies travel out of the [place] in the last 14 days. At this time, the client does not indicate any symptoms associated with coronavirus-19. Ebola Screen: Patient denies travel to an Ebola-affected area in the 21 days before illness onset. Initial Sepsis Screen: Does the patient meet any 2 criteria? HR > 90 bpm. No. Patient's initial sepsis screen is negative. Does the patient have a suspected source of infection? No. Patient's initial sepsis screen is negative. Risk Assessment: Do you want to hurt yourself or someone else? Patient reports no desire to harm self or others. Onset of symptoms was October 14, 2021. 12:15 Method Of Arrival: EMS ll1 12:15 Acuity: HOWARD 3 ll1 Triage Assessment: 12:17 General: Appears ill, Behavior is cooperative, appropriate for age. Pain: Complains of ll1 pain in throat Pain currently is 2 out of 10 on a pain scale. Quality of pain is described as aching. EENT: Reports pain when swallowing. Neuro: Reports dizziness, weakness. Cardiovascular: Reports fatigue, lightheadedness, nausea. GI: Reports nausea. Musculoskeletal: Reports weakness in all over. Historical: - Allergies: 12:15 No Known Allergies; ll1 - PMHx: 12:15 CAD; COPD; Diabetes - NIDDM; High Cholesterol; THROAT CA; ll1 - PSHx: 12:15 no recent SX; ll1 - Immunization history:: Client reports receiving the 2nd dose of the Covid vaccine. - Social history:: Smoking status: Patient reports the use of cigarette tobacco products, denies chronic smoking, but will smoke occasionally. Screenin:18 Abuse screen: Denies threats or abuse. Nutritional screening: No deficits noted. ll1 Tuberculosis screening: No symptoms or risk factors identified. 12:19 Fall Risk IV access (20 points). Total Arnold Fall Scale indicates No Risk (0-24 pts). ll1 Assessment: 12:53 Reassessment: No changes from previously documented assessment. Patient and/or family ll1 updated on plan of care and expected duration. Pain level reassessed. 14:25 Reassessment: Pt c/o epigastric burning, ERP notified, see MAR for orders. jl7 15:30 Reassessment: No changes from previously documented assessment. Patient and/or family ll1 updated on plan of care and expected duration. Pain level reassessed. 16:30 Reassessment: No changes from previously documented assessment. Patient and/or family ll1 updated on plan of care and expected duration. Pain level reassessed. 17:28 Reassessment: No changes from previously documented assessment. Patient and/or family ll1 updated on plan of care and expected duration. Pain level reassessed. GI: Abdomen is flat. 18:25 Reassessment: No changes from previously documented assessment. Patient and/or family ll1 updated on plan of care and expected duration. Pain level reassessed. 1st unit of blood started per protocol. Vital Signs: 12:15 BP 111 / 48; Pulse 93; Resp 18; Temp 97.5; Pulse Ox 95% on R/A; Weight 58.97 kg; Height ll1 5 ft. 6 in. (167.64 cm); Pain 2/10; 12:20 BP 103 / 38; Pulse 90; ll1 12:37 BP 126 / 42 Supine; tp1 12:37 BP 106 / 49 Sitting; tp1 12:38 BP 65 / 39 Standing; tp1 12:45 BP 128 / 47; Pulse 88; ll1 13:15 BP 115 / 42; Pulse 90; Resp 20; Pulse Ox 94% ; ll1 14:00 BP 105 / 59; Pulse 82; Resp 20; Pulse Ox 95% ; ll1 15:27 BP 97 / 53; Pulse 83; Resp 20; Pulse Ox 98% on R/A; ll1 16:30 BP 121 / 55; Pulse 84; Pulse Ox 95% ; ll1 17:26 BP 130 / 63; Pulse 84; Resp 20; Pulse Ox 96% ; ll1 18:40 BP 117 / 52; Pulse 84; Resp 17; Temp 97.4; Pulse Ox 97% on R/A; ll1 19:25 BP 141 / 62; Pulse 98; Resp 16; Temp 98(O); Pulse Ox 99% ; ke1 19:55 BP 127 / 56; Pulse 86; Resp 14; Temp 98.3; Pulse Ox 93% on R/A; ke1 20:25 BP 130 / 58; Pulse 85; Resp 18; Temp 98.1(O); Pulse Ox 95% on R/A; ke1 20:55 BP 121 / 54; Pulse 86; Resp 18; Temp 98.1; Pulse Ox 97% on R/A; ke1 22:24 BP 128 / 73; Pulse 86; Resp 18; Pulse Ox 98% on R/A; ke1 12:15 Body Mass Index 20.98 (58.97 kg, 167.64 cm) ll1 ED Course: 12:14 Patient arrived in ED. ll1 12:15 Arm band placed on Patient placed in an exam room, on a stretcher. ll1 12:17 Triage completed. ll1 12:18 Bed in low position. Call light in reach. Side rails up X2. Warm blanket given. tp1 12:20 Skip Polk, KWAN is Primary Nurse. ll1 12:21 Jagdeep Rios PA is PHCP. cp 12:21 Aaron Jaramillo MD is Attending Physician. cp 12:30 EKG done, by ED staff. tp1 12:55 Inserted saline lock: 22 gauge in left wrist, using aseptic technique. Blood collected. tp1 14:21 XRAY Chest (1 view) In Process Unspecified. EDMS 14:[address] Thomas's office and GI Line for a consult on his patient/ per mao Mora in the office he was in his [place] office this morning, that there is nobody in the office that is available to consult with our provider/. 14:58 connected the office of Dr. Chavez with Jagdeep VILLANUEVA for patient consultation. eb 15:01 initiated a transfer with Veronique from the [facility] transfer center as requested by eb patient. 15:02 faxed patient clinicals to [facility] at [phone] as requested by Veronique. eb 15:[address] Woods the EC doctor on duty with Jagdeep VILLANUEVA for patient transfer eb consultation. 15:42 per Veronique, MD Dorantes will have to decline the patient in transfer due to the EC eb being at saturation. 15:50 initiated a transfer with Abby from the [facility]. eb 15:59 Inserted saline lock: 22 gauge in right wrist, using aseptic technique. Blood collected.jl7 16:40 re initiated a transfer with Armond from the [facility] transfer center at the request eb of the patient's nurse Kunal Rn in attempt to get him into an ICU bed. Armond will call back with her Head and neck carol and let the provider's talk to see if he meets ICU criteria. 16:58 connected the carbon accountant residential collections for [facility] with Jagdeep Villanueva for patient transfer eb consultation. 17:08 connected the head and neck oncologist with MD Dorantes with Jagdeep Villanueva for patient eb transfer consultation. 17:23 refaxed the clinicals at the request of Armond from the [facility] for eb review. 17:37 reconnected the hospitalist residential collections for [facility] with Jagdeep Villanueva for patient transfer eb consultation. 17:[address] Destinee Chong . Patient has been accepted to [facility] room G703/ Dr Cody Dupont and Dr. Janessa Zambrano have accepted the patient in transfer/ report to be called to [phone]/ transfer center asks if we could please call them at [phone] when patient leaves the department. 17:45 called the [facility] to cancel the transfer. eb 19:16 Primary Nurse role handed off by Skip Polk RN 2 19:21 Vik Castañeda, KWAN is Primary Nurse. ke1 20:26 called [facility] to get an updated ETA they stated "we had an emergency call drop [facility] so we are dispatching another crew to you. Its going to be another 45 minutes.". 21:50 called [facility] to get an ETA the stated "another 40 minutes." I called [address] to transport patient they will be shortly. 22:26 No provider procedures requiring assistance completed. Patient transferred, IV remains ke1 in place. Administered Medications: 12:53 Drug: NS 0.9% 500 ml Route: IV; Rate: bolus; Site: left hand; ll1 13:30 Follow up: Response: No adverse reaction; IV Status: Completed infusion; IV Intake: jl7 500ml 14:30 Drug: ProTONIX (pantoprazole) 40 mg Route: IVP; Site: left hand; jl7 15:45 Follow up: Response: No adverse reaction ll1 14:50 Drug: NS 0.9% 500 ml Route: IV; Rate: bolus; Site: left forearm; ll1 17:10 Follow up: Response: No adverse reaction; IV Status: Completed infusion; IV Intake: ll1 500ml 15:00 Drug: NS 0.9% 1000 ml Route: IV; Rate: 75 ml/hr; Site: left forearm; ll1 17:53 Follow up: IV Status: Infusion continued upon transfer jl7 15:45 Drug: ProTONIX (pantoprazole) 8 mg/hr Route: IV; Rate: 25 ml/hr; Site: left hand; ll1 17:53 Follow up: IV Status: Infusion continued upon transfer jl Medication: 15:59 VIS not applicable for this client. jl7 Intake: 13:30 IV: 500ml; Total: 500ml. jl7 17:10 IV: 500ml; Total: 1000ml. ll1 Output: 17:27 Urine: 450ml (Voided); Total: 450ml. ll1 18:46 Urine: 75ml (Voided); Total: 525ml. ll1 Outcome: 14:53 ER care complete, transfer ordered by . cp 22:26 Transferred by ground EMS to [facility]. ke1 22:26 Condition: stable 22:26 Instructed on the need for transfer. 22:27 Patient left the ED. ke1 Signatures: Dispatcher [employer] EDMS Jagdeep Rios PA PA cp Leal, Jahala RN RN jl7 Deonte Dimas mw2 Savannah Guy Lynsay, RN RN ll1 Rita Wright tp1 Vik Castañeda RN RN ke1 Corrections: (The following items were deleted from the chart) 17:56 17:55 called the [facility] to cancel the transfer. eb eb
[2021-10-14] MEDS ORDERED: PANTOPRAZOLE INJ 80 MG in NA CHLORIDE 0.9% 250 ML IV SCH (15:00)
[2021-10-14 15:12] LABS: Urine Amorphous Sediment 3+ /HPF (NONE SEEN); Urine Bacteria <20 /HPF (NONE SEEN)
[2021-10-14 15:13] LABS: Urine RBC NONE SEEN /HPF (NONE SEEN)
[2021-10-14] MEDS ORDERED: DIPHENHYDRAMINE 50 MG/ML VIAL ONE (17:58)
[2021-10-14] MEDS ORDERED: ACETAMINOPHEN 325 MG TABLET ONE (17:58)
[2021-10-15 14:31] VITALS: TEMP 98.1
[2021-10-15 14:34] VITALS: BP 128/73; O2SAT 98
--- NOTE | 2021-10-15 14:58 | EKG ---
Test Date: 2021-10-14 Test Time: 12:25:56 Cash Applications Specialist: BRANDON MEASUREMENT RESULTS: Intervals: Rate: 91 MA: 154 QRSD: 88 QT: 334 QTc: 410 Aiken: P: 86 MA: 154 QRS: 89 T: 264 INTERPRETIVE STATEMENTS: Normal sinus rhythm ST & T wave abnormality, consider inferior ischemia ST & T wave abnormality, consider anterolateral ischemia Abnormal ECG Compared to ECG 10/02/2021 02:54:25 ST (T wave) deviation now present Possible ischemia now present Sinus tachycardia no longer present Left-axis deviation no longer present Myocardial infarct finding no longer present Electronically Signed On 10-15-21 14:54:19 CDT by Brian Young
== END 2021-10-14 22:27 ==
LOC: ER 12:14
DX: D64.9 Anemia, unspecified (principal); I95.1 Orthostatic hypotension; E86.0 Dehydration; K92.2 Gastrointestinal hemorrhage, unspecified; F17.210 Nicotine dependence, cigarettes, uncomplicated; E11.9 Type 2 diabetes mellitus without complications; Z20.822 Contact with and (suspected) exposure to COVID-19; Z85.819 Personal history of malignant neoplasm of unspecified site of lip, oral cavity, and pharynx
CPT/HCPCS: 96365; 96361; 93005; 85025; 80048; 36415; 86900; 83735; 86850; 85610; 86901; 80076; 84484; 84145; 71045; 99285; 96366; U0003; J1200; C9113 ×2; P9016; J7050; J7040 ×3; J7030; 81003; 81015

== ENCOUNTER 2022-01-13 14:23 | Emergency (ER) | payer OTHER ==
--- OUTSIDE RECORDS SUMMARY | 2022-01-13 14:36 | XMS REPORT | Clinical Summary ---
:1950 Author Organization [facility] MD [facility] Address [address] [place] [address] Care Team Providers Name Role Phone Olivia Coleman DO Unavailable Slava Canseco MD Primary Care Provider Yumi Desir MD Unavailable Ene Polk MD Unavailable Camilla Davenport RD Unavailable Anca Maurer APN Unavailable Michael Lam MD Unavailable Brady Payan MD Unavailable Allergies No known active allergies Medications Medication Sig Dispensed Refills Start Date End Date Status metFORMIN (GLUCOPHAGE) Take 500 mg by 0 04/19/2021 Active 500 mg tablet mouth as needed. fluoride, sodium, Apply to teeth 51 g 20 05/06/2021 Active (PREVIDENT) 1.1 % twice daily. [place] dental teeth with cream creamIndications: and spit out as Primary squamous cell directed. (Do not carcinoma of larynx, eat, drink or Accretion on teeth rinse for 30 minutes). albuterol (VENTOLIN Inhale 2 puffs by 0 Active HFA,PROAIR HFA) 90 mouth every 6 mcg/puff inhaler (six) hours as needed. amLODIPine (NORVASC) Give 1 tablet (10 30 tablet 3 07/13/2021 Active 10 mg mg) per NG-tube tabletIndications: daily. Essential hypertension lansoprazole (PREVACID PLACE ONE (1) 0 09/22/2021 Active SOLUTAB) 30 MG TABLET IN SYRINGE, disintegrating tablet DRAW UP 10 ML(S) AMOUNT OF WATER, GENTLY SHAKE, ADMINISTER VIA TUBE WITHIN 15 MINS, REFILL SYRINGE WITH 5 Nicoderm CQ 21 mg/24 Apply 1-2 patches 56 patch 0 10/12/2021 Active hr transdermal to skin and change patchIndications: patch daily as Nicotine dependence directed for tobacco cessation (alternate sites). Additional Information Patient not taking. Reason: No longer taking, Reported on 12/22/2021 ferrous sulfate (iron) 325 1 tablet (325 mg) by 0 Active mg (65 mg elemental iron feeding tube route per tablet) daily. tabletIndications: Melena folic acid (FOLVITE) 1 mg 1 tablet (1 mg) by 30 tablet 3 10/23 Active tabletIndications: feeding tube route Hypokalemia, daily. Hypophosphatemia, Folate deficiency, Hypomagnesemia magnesium oxide 500 mg 1 tablet (500 mg) by 30 tablet 1 2021 Active tabletIndications: Primary feeding tube route squamous cell carcinoma of daily. larynx, Hypomagnesemia thiamine (VITAMIN B-1) 100 1 tablet (100 mg) by 30 tablet 0 Active mg tab tabletIndications: feeding tube route Hypokalemia, daily. Hypophosphatemia, Hypomagnesemia rosuvastatin (CRESTOR) 40 1 tablet (40 mg) by 0 10/03 Active mg tabletIndications: feeding tube route at Chronic diastolic heart bedtime. failure nebulizer accessories 1 Units by 1 kit 0 10/27/2021 Active (Reusable Nebulizer Kit) miscellaneous route 22 kitIndications: as needed (per Mucopurulent chronic nebulizer schedule.) bronchitis for up to 90 days. arformoterol (BROVANA) 15 Inhale 1 vial (15 180 vial 0 202101/26/20 Active mcg/2 mL nebulizer mcg) by nebulization 22 solutionIndications: twice daily for 90 Chronic bronchitis, not days. otherwise specified budesonide (PULMICORT) 0.5 Inhale 1 vial (0.5 180 vial 0 /11/202101/26/20 Active mg/2 mL nebulizer mg) by nebulization 22 solutionIndications: every 12 (twelve) Chronic bronchitis, not hours for 90 days. otherwise specified ipratropium-albuterol Inhale 1 vial (3 mL) 540 vial 0 022 01/26/20 Active (DUO-NEB) 0.5 mg-2.5 mg/3 by nebulization every 22 mL nebulizer 4 (four) hours for 90 solutionIndications: days. Chronic bronchitis, not otherwise specified [id number] Inhale 1 puff by 1 each 6 2021 Active nter (Trelegy Ellipta) mouth daily. 200-62.5-25 mcg dsdvIndications: Chronic obstructive pulmonary disease, not otherwise specified traMADol (ULTRAM) 50 mg 1 tablet (50 mg) by 0 2021 Active tabletIndications: Oral feeding tube route mucositis due to radiation every 6 (six) hours as needed for severe pain. HYDROcodone-acetaminophen 1-2 tablets by 0 Active (NORCO) 5 mg-325 mg per feeding tube route tabletIndications: Oral every 8 (eight) hours mucositis due to radiation as needed for severe pain. ondansetron (ZOFRAN) 8 mg 1 tablet (8 mg) by 0 11/10 Active tabletIndications: Primary feeding tube route squamous cell carcinoma of every 8 (eight) hours larynx as needed for nausea or vomiting. nut.tx.gluc Give 375 mL per 0 11/11/2021 A ctive intol,lf,soy/fiber G-tube 4 (four) times (diabetisource AC) enteral a day. 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, Fatigue, Hypercapnia, Chronic diastolic heart failure, Aortic valve stenosis, Hypopharyngeal lesion, Hyposmolality and/or hyponatremia, Lower gastrointestinal hemorrhage, Acute posthemorrhagic anemia, Orthostatic hypotension, Ex-smoker for less than 1 year, Gastrostomy present, Melena, Aspiration pneumonia, Severe protein-calorie malnutrition, not otherwise specified, Neuropathy due to type 2 diabetes mellitus, Bilateral tinnitus, Hypomagnesemia, Swallowing painful, Type 2 diabetes mellitus without complication, Multiple nodules of lung, Essential hypertension, Coronary arteriosclerosis, not otherwise specified, Mucopurulent chronic bronchitis, Laryngopharyngeal reflux Additional Information Patient taking differently: 375 mL G-tube 3 times daily, Reason: Other, Informant: Spouse/Significant Other, Reported on 01/12/2022 acetaminophen (Tylenol Take 1 tablet 60 tablet 0 11/11/2021 Active Extra Strength) 500 mg (500 mg) by mouth tabletIndications: every 6 (six) Dyspnea, not otherwise hours as needed specified, for mild pain, Breathing-related sleep moderate pain or disorder, Acute and headaches. 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, Fatigue, Hypercapnia, Chronic diastolic heart failure, Aortic valve stenosis, Hypopharyngeal lesion, Hyposmolality and/or hyponatremia, Lower gastrointestinal hemorrhage, Acute posthemorrhagic anemia, Orthostatic hypotension, Ex-smoker for less than 1 year, Gastrostomy present, Melena, Aspiration pneumonia, Severe protein-calorie malnutrition, not otherwise specified, Neuropathy due to type 2 diabetes mellitus, Bilateral tinnitus, Hypomagnesemia, Swallowing painful, Type 2 diabetes mellitus without complication, Multiple nodules of lung, Essential hypertension, Coronary arteriosclerosis, not otherwise specified, Mucopurulent chronic bronchitis, Laryngopharyngeal reflux, Shortness of breath polyethylene glycol TAKE ONE (1) 510 g 3 11/21/2021 Active (GLYCOLAX) 17 gram/dose CAPFUL MIXED WITH powderIndications: WATER BY MOUTH 3 Primary squamous cell TIMES DAILY. carcinoma of larynx, Constipation, not otherwise specified sodium chloride 7 % Inhale the 240 mL 6 12/09/2021 Active (Hyper-Marcela) nebulizer contents of 1 solutionIndications: vial (4 mL by) Chronic obstructive nebulization pulmonary disease, not twice daily. otherwise specified cyclobenzaprine Take 1 tablet (5 20 tablet 0 12/16/2021 Active (FLEXERIL) 5 mg mg) by mouth tabletIndications: nightly as needed Primary squamous cell (muscle pain). carcinoma of larynx cetirizine (ZyrTEC) 10 TAKE ONE (1) 0 03/15/2021 Discontinued mg tablet TABLET(S) (Stop T aking at MOUTH ONCE A DAY. Bre cooper) clopidogrel (PLAVIX) 75 TAKE ONE (1) 0 03/15/2021 Discontinued mg tablet TABLET(S) BY (Stop T aking at MOUTH ONCE A DAY. Bre cooper) Dexilant 60 mg capsule TAKE ONE (1) 0 04/13/2021 Discontinued CAPSULE(S) BY (Stop Taking at MOUTH DAILY. Dischar ge) diazePAM (VALIUM) 5 mg Take 5 mg by 0 03/29/2021 Discontinued tablet mouth as needed. /2021 (St op Taking at Discharge) fenofibrate TAKE ONE (1) 0 02/08/202108/31 Disc ontinued nanocrystallized TABLET(S) BY (Stop Taking at (TRICOR) 145 mg tablet MOUTH ONCE A DAY. Discharge) losartan (COZAAR) 50 mg Take 100 mg by 0 04/16/202106/29 Discontinued tablet mouth daily. (Dose adjustment ) metoprolol tartrate TAKE ONE (1) 0 04/19/202107/12 Discontinued (LOPRESSOR) 50 mg TABLET(S) BY (Stop Taking at tablet MOUTH TWICE A DAY Bre cooper) WITH FOOD. montelukast (SINGULAIR) TAKE ONE (1) 0 04/07/2021 Discontinued 10 mg tablet TABLET(S) BY (Sto p Taking at MOUTH ONCE A DAY. Bre cooper) simvastatin (ZOCOR) 10 TAKE ONE (1) 0 03/09/2021 Discontinued mg tablet TABLET(S) BY (Discon tinued by MOUTH EVERY another EVENING. clinician) aspirin 81 mg EC tablet Take 81 mg by 0 04/25/2010 0 10/27 Discontinued mouth. /2021 (Stop Taki ng at Discharge) budesonide-formoterol Inhale 2 puffs by 0 10/27 Discontinued (SYMBICORT) 160-4.5 mouth twice (Stop Taking at mcg/actuation inhaler daily. Patient Discharge) usually does it once a day at night. tadalafil (CIALIS) 20 Take 20 mg by 0 08/03 8 Discontinued mg tablet mouth. (Error) Nicoderm CQ 21 mg/24 hr Apply 1 patch to 28 patch 0 1 06/08 Discontinued transdermal skin and change (R eorder) patchIndications: patch daily as Nicotine dependence directed for tobacco cessation (alternate sites). ondansetron (ZOFRAN) 8 Take 1 tablet (8 30 tablet 05/17/2021/ Discontinued mg tabletIndications: mg) by mouth (Reorder) Primary squamous cell every 8 (eight) carcinoma of larynx hours as needed for nausea or vomiting. prochlorperazine Take 1 tablet (10 60 tablet 05/17/2021 02/0 9 Discontinued (Compazine) 10 mg mg) by mouth tabletIndications: every 6 (six) Primary squamous cell hours as needed carcinoma of larynx for nausea or vomiting (if not controlled by Ondansetron). gabapentin (Neurontin) Take 1 capsule 90 capsule 1 05/25/202108/22 Discontinued 300 mg (300 mg) by mouth capsuleIndications: 3 (three) times a Primary squamous cell day. 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 Radiation dermatitis ferrous sulfate (iron) 0 08/16/201710/23 Discontinued 325 mg (65 mg elemental /2021 (Reorder) iron per tablet) tablet Nicoderm CQ 21 mg/24 hr Apply 2 patch to 56 patch 0 2 08/04 Discontinued transdermal skin and change (R eorder) patchIndications: patch daily as Nicotine dependence directed for tobacco cessation (alternate sites). guaiFENesin Take 10 mL (200 473 mL 3 06/13/202108/29 D iscontinued (ROBITUSSIN) 100 mg/5 mg) by mouth 22 (Error) mL syrupIndications: (four) times a Primary squamous cell day. carcinoma of larynx, Thick sputum lidocaine (XYLOCAINE) Swish and swallow 100 mL 2 06/15/202110/27 Discontinued 20 mg/mL (2%) viscous 5 mL every (Stop Taking at solutionIndications: (four) hours as Discharge) Oral mucositis due to needed (throat radiation pain). traMADol (ULTRAM) 50 mg Take 1 tablet (50 60 tablet 0 06/15/1907/25 Discontinued tabletIndications: Oral mg) by mouth mucositis due to every 4 (four) radiation hours as needed for moderate pain or severe pain. magnesium oxide 500 mg Take 1 tablet 30 tablet 1 06/15/2021 Discontinued tabletIndications: (500 mg) by mouth (Reorder) Primary squamous cell daily. carcinoma of larynx, Hypomagnesemia cloNIDine HCl Take 1 tablet 10 tablet 0 06/22/202107/01 D iscontinued (Catapres) 0.1 mg (0.1 mg) by mouth 2 (Reorder) tabletIndications: 3 (three) times a Hypertension day as needed for high blood pressure (Systolic blood pressure over 180, diastolic over 110). rosuvastatin (CRESTOR) daily. 0 06/25/202110/23 Discontinued 40 mg tablet /2021 (Reorde r) losartan (COZAAR) 100 daily. 0 06/24/2021/ Discontinued mg tablet /2021 glycopyrrolate Take 1 tablet (1 90 tablet 1 06/29/202107/12 Discontinued (RobinuL) 1 mg mg) by mouth (Stop Taking at tabletIndications: (four) times a Discharge) Primary squamous cell day. carcinoma of larynx, Thick sputum senna-docusate Take 1-3 tablets 100 tablet 3 06/29/202108/31 Discontinued (SENOKOT-S) 8.6 mg-50 by mouth twice (Stop Taking at mg tabletIndications: daily. Discharge) Primary squamous cell carcinoma of larynx, Constipation, not otherwise specified polyethylene glycol Take 17 g by 510 g 3 06/29/202110/12 Discontinued (GLYCOLAX) 17 gram/dose mouth (three) (Therapy powderIndications: times a day. completed) Primary squamous cell carcinoma of larynx, Constipation, not otherwise specified cloNIDine HCl Take 1 tablet 10 tablet 0 07/01/2021 05/14 D iscontinued (Catapres) 0.1 mg (0.1 mg) by mouth /202 2 tabletIndications: 3 (three) times a Hypertension day as needed for high blood pressure (Systolic blood pressure over 180, diastolic over 110). folic acid (FOLVITE) 1 Take 1 tablet (1 30 tablet 3 07/13/202110/23 Discontinued mg tabletIndications: mg) by mouth /2021 (Reorder) Hypokalemia, daily. Hypomagnesemia, Hypophosphatemia, Folate deficiency potassium-sodium Give 1 packet per 30 packet 0 07/12/202110/02 1 Discontinued phosphates (PHOS-NAK) NG-tube twice / (Therapy 280 mg-160 mg-250 mg daily. Mix completed) powderIndications: contents of 1 Hypokalemia, packet of the Hypomagnesemia, powder in 2 and Hypophosphatemia 1/2 ounces (75 mL) of water or juice. Stir until completely dissolved and drink the mixture right away after mixing. Do not save for later use. thiamine (VITAMIN B-1) Take 1 tablet 30 tablet 0 07/13/2021 Discontinued 100 mg tab (100 mg) by mouth /2021 ( Reorder) tabletIndications: daily. Hypokalemia, Hypomagnesemia, Hypophosphatemia potassium chloride Give 30 mL (40 900 mL 0 07/12/202110/12 Discontinued (KAYCIEL) 20 mEq/15 mL mEq) per NG-tube /2021 (Therapy solutionIndications: daily. completed) Hypokalemia amoxicillin-clavulanate Take 1 tablet 2 tablet 0 07/13/2021 0 07/12 Discontinued (Augmentin) 875 mg-125 (875 mg) by mouth /2021 (Reorder) mg per daily for 2 tabletIndications: doses. Acute hypoxemic respiratory failure, Aspiration pneumonia amoxicillin-clavulanate Take 1 tablet 5 tablet 0 07/12/2021 0 07/15 (Augmentin) 875 mg-125 (875 mg) by mouth /2021 mg per twice daily for 5 tabletIndications: doses. Acute hypoxemic respiratory failure, Aspiration pneumonia traMADol (ULTRAM) 50 mg TAKE ONE (1) 90 tablet 0 07/25/2021 Discontinued tabletIndications: Oral TABLET (50 MG) BY (Reorder) mucositis due to MOUTH EVERY 4 radiation (FOUR) HOURS NEEDED FOR MODERATE PAIN OR SEVERE PAIN. Nicoderm CQ 21 mg/24 hr Apply 1-2 patches 56 patch 0 08/05/19 22 10/12 Discontinued transdermal to skin and (Reord er) patchIndications: change patch Nicotine dependence daily as directed for tobacco cessation (alternate sites). HYDROcodone-acetaminoph Take 1-2 tablets 240 tablet 0 08/15/19 22 11/10 Discontinued en (Newton) 5 mg-325 mg by mouth every per tabletIndications: (eight) hours as Oral mucositis due to needed for severe radiation pain. gabapentin (NEURONTIN) TAKE ONE (1) 90 capsule 1 08/22/2021 Discontinued 300 mg CAPSULE(S) BY (Stop Taking at capsuleIndications: MOUTH THREE TIMES Discharge) Primary squamous cell A DAY. 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 Aspiration pneumonia pantoprazole (PROTONIX) Take 1 tablet (40 30 tablet 3 09/01/1910/12 Discontinued 40 mg EC mg) by mouth (Therap y tabletIndications: every morning completed) Aspiration pneumonia before breakfast. losartan (Cozaar) 100 1 tablet 0 10/15 Discontinued mg tablet /2021 metoprolol-hydrochlorot 1 tablet with 0 Discontinued hiazide (LOPRESSOR HCT) food 50-25 mg per tablet predniSONE (DELTASONE) TAKE ONE (1) 0 10/05/2021 Discontinued 10 mg tablet TABLET(S) BY MOUTH TWICE A DAY. methylPREDNISolone USE DIRECTED. 0 09/30/2021 Discontinued (MEDROL DOSEPACK) 4 mg (Stop Taking at tablet Discharge) levoFLOXacin (LEVAQUIN) TAKE ONE (1) 0 10/05/2021 Discontinued 750 mg tablet TABLET(S) BY MOUTH ONCE A DAY. arformoterol (BROVANA) Inhale 1 vial (15 180 vial 0 10/27 Discontinued 15 mcg/2 mL nebulizer mcg) (Reorder) solutionIndications: nebulization Chronic bronchitis, not twice daily for otherwise specified 90 days. budesonide (PULMICORT) Inhale 1 vial 180 vial 0 10/27/2021 Discontinued 0.5 mg/2 mL nebulizer (0.5 mg) (Reorder) solutionIndications: nebulization Chronic bronchitis, not every 12 (twelve) otherwise specified hours for 90 days. ipratropium-albuterol Inhale 1 vial (3 540 vial 0 10/27/202110/27 Discontinued (DUO-NEB) 0.5 mg-2.5 mL) by (Reorder) mg/3 mL nebulizer nebulization solutionIndications: every 4 (four) Chronic bronchitis, not hours for 90 otherwise specified days. levoFLOXacin (LEVAQUIN) Give 30 mL (750 150 mL 0 10/27/202111/01 250 mg/10 mL mg) per G-tube solutionIndications: daily for 5 Chronic bronchitis, not doses. otherwise specified losartan (COZAAR) 100 Give 1 tablet 30 tablet 0 10/28/2021 mg tabletIndications: (100 mg) by Essential hypertension feeding tube route daily for 30 days. sodium chloride 3 % Inhale 4 mL by 720 mL 0 10/27/2021 05 6 Discontinued nebulizer nebulization /2021 (Reorde r) solutionIndications: twice daily for Chronic bronchitis, not 90 days. otherwise specified sodium chloride 3 % Inhale 4 mL by 720 mL 0 10/27/2021 06/0 7 Discontinued nebulizer nebulization /2021 solutionIndications: twice daily for Chronic bronchitis, not 90 days. otherwise specified sodium chloride 7 % Inhale the 240 mL 6 11/07/2021 07/08 Discontinued (Hyper-Marcela) nebulizer contents of (Reorder) solutionIndications: vial (4 mL by) Chronic obstructive nebulization pulmonary disease, not twice daily. otherwise specified ondansetron (ZOFRAN) 8 1 tablet (8 mg) 30 tablet 11/10/2021 06 Discontinued mg tabletIndications: by feeding tube /2 022 (Reorder) Primary squamous cell route every 8 carcinoma of larynx (eight) hours as needed for nausea or vomiting. amoxicillin-clavulanate Take 10.9 mL (875 153 mL 0 11/13/19 22 11/19 (AUGMENTIN) 400 mg-57 mg) by mouth /2021 mg/5 mL twice daily for 7 suspensionIndications: days. Cellulitis of neck predniSONE (DELTASONE) Take 2 tablets 10 tablet 0 12/09/2021 0 12/21 20 mg (40 mg) by mouth /2021 tabletIndications: daily for 5 days. Chronic obstructive Crush and pulmonary disease, not administer otherwise specified through feeding tube sulfamethoxazole-trimet Take 1 tablet by 20 tablet 0 2 12/26 hoprim (Bactrim DS) 800 mouth twice daily /2021 mg-160 mg per for 10 days. tabletIndications: Primary squamous cell carcinoma of larynx metroNIDAZOLE (FlagyL) 1 tablet (500 mg) 42 tablet 0 2 01/12 500 mg by feeding tube /2021 tabletIndications: route twice daily Cellulitis of neck for 21 days. 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 Will evaluate for obstructive sleep apne a with Home sleep Study. Dyspnea 11/08/2021 Overview: Added automatically from request for nikita sam [id number] Hypercapnia 10/23/2021 Aortic valve stenosis 10/19/2021 Chronic diastolic heart failure 10/19/2021 Acute and chronic respiratory failure with hypercapnia 10/18/2021 Orthostatic hypotension 10/15/2021 Acute posthemorrhagic anemia 10/15/2021 Lower gastrointestinal hemorrhage 10/15/2021 Hyposmolality and/or hyponatremia 10/15/2021 Hypopharyngeal lesion 10/14/2021 Overview: Added automatically from request for nikita sam [id number] Breathing-related sleep disorder 10/12/2021 Gastrostomy present 10/12/2021 Ex-smoker for less than 1 year 10/12/2021 Melena 08/26/2021 Aspiration pneumonia 07/10/2021 Severe protein-calorie malnutrition 06/29/2021 [...] arteriosclerosis 10/10/2016 Chronic obstructive pulmonary disease 04/26/2016 Last Assessment & Plan: Formatting of th is note might be different from the original. Patient has moderate obstructive defect, air trapping, and severely reduce diffusion capacity on PFT's. Recommend that patient start inhaled the rapy with a LABA, LAMA, and ICS. Will initiate on Trelegy Ellipta daily and recommend use of albuterol nebs and inhaler up to 4 times as needed for SOB. Will pres cribe Hypersal 7 % to Floor 10 pharmacy and recommend patient initiate use bid. Administered 1 treatment with Hyperal in clinic and patient reported improvement in mucociliary clearance and breathing. Type 2 diabetes mellitus without complication 04/25/20 [...] Encounters Date Type Specialty Care Team Description Hospital Encounter Vascular Access Slava Canseco 2 and Procedures MD Jolly Romero Donald J Jr., RN Follow-Up Infectious Deshawn Ahuja, Cellulitis of neck 2 Diseases MD Hospital Encounter Vascular Access Slava Canseco Encoun ter for 2 and Procedures MD Nick adjustment and Sarah Rudd, management of vascular line servicer device Hospital Encounter Lab Deshawn Ahuja, Cellu litis of neck 2 Orders Only Radiology Richard Arreguin 2 OUMAR Hui Telephone Head and Neck Talia Munoz 2 Surgery Arnaldo, RN Travel 2 Refill Head and Neck Ene Polk, Primary squ amous cell 2 Surgery carcinoma of la rynx Hospital Encounter Radiology Ene Polk, Primar y squamous cell 2 carcinoma of larynx Sara Harris, PhD Case Management Lisa Hollingsworth RN Travel 2 Case Management Lisa Hollingsworth, RN Hospital Encounter Radiology Deshawn Ahuja, Encou nter for 2 MD adjustment and management of v ascular access device Hospital Encounter Vascular Access Deshawn Ahuja, En counter for adjustment and management of vascular access device (Primary Dx); 2 and Procedures Cellulitis of neck Bird Lawton Jr., RN Case Management Lisa Hollingsworth RN Case Management Lisa Hollingsworth RN Travel 2 Orders Only Infectious OkLcaey pollacklo, Cellulitis of neck 2 Diseases (Primary Dx) Orders Only Infectious Rylieysen, Deshawn, 2 Diseases Documentation Pulmonology Po, Leobardo Zhang Apnea 2 T, [employer] Case Management Darrick 2 Nevin Singh, RN Case Management Lisa Hollingsworth RN Orders Only Infectious Okhuysen, Deshawn, Cellulitis of neck 2 Diseases (Primary Dx) Orders Only Infectious OkbasilysenDeshawn, 2 Diseases Consult Infectious Jose Luis Hay S, Cellulitis o f neck 2 Diseases Deshawn Benito MD Travel 2 Orders Only Head and Neck Jose Luis Hay, Cellulitis of neck 2 Surgery PA (Primary Dx) Hospital Encounter Head and Neck Ene Polk, 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 (Primary Dx); 2 Surgery Cellulitis of n jasmeet Ancillary Procedure Radiology Ene Polk, 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; 2 Abnormal findin g on diagnostic imaging of other part of digestive tract Orders Only Radiology Heena, 2 Clement Rivera MD Travel 2 Refill Internal ManciaCintia, Hypokalemia ; 2 Medicine Hypophosphatemi a; Folate deficien cy; Hypomagnesemia Hospital Encounter Speech Pathology Ene Polk, Ap honia 2 Kita Bejarano, CCC-WAFER FABRICATOR Clinical Support Pulmonology Basil Prieto ob structive 2 MD Kong pulmonary disease with Cole, acute exacerbat ion Syeda Mcintosh RN Ancillary Procedure Radiology Ida, Chronic obstructive 2 MD Kong pulmonary disea se with acute exacerbat ion Orders Only Pulmonology Oyekanmi, Chronic obstruc tive 2 Liliana, CORPORATE ASSOCIATE ATTORNEY pulmonary disea se, not otherwise speci fied Travel 2 Refill Radiation Alexandra De La Rosa, 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); 2 Oncology OUMAR Stein, n ot otherwise specified Emergency Emergency Hilario Pardo MD Edema (Prima ry Dx); 2 Medicine Chronic obstruc tive pulmonary disease; Type 2 diabetes mellitus without complication; Primary squamou s cell carcinoma of larynx Orders Only Head and Neck Lam, Primary squamo us cell 2 Surgery MD Shilo carcinoma of l arynx (Primary Dx) Travel 2 Telephone Head and Neck Jazzmine Tee RN 2 Surgery Orders Only Head and Neck Ene Polk, Primary squ amous cell carcinoma of larynx (Primary Dx); 2 Surgery MD Malignant neopl asm detection during interval between recommended screening examinations; Abnormal findin g on diagnostic imaging of other part of digestive tract Orders Only Head and Neck Aaron Nolasco Cellulitis of neck 2 Surgery MD Basilio (Primary Dx) Orders Only Head and Neck Cleveland, Cellulitis of neck 2 Surgery MD Shailesh (Primary Dx) Nurse Triage Lisa Pressley, KWAN Surgery Ene Polk, TRACHEOSTOMY - PLANNED 2 Anesthesia Event Nilam [place] 2 MD Rj Ruby Miguel, KAREEN Hospital Encounter Head and Neck Ene Polk, Breat gary-related sleep disorder (Primary Dx); 2 - Surgery Dyspnea, not ot herwise specified; Acute and chron ic respiratory failure with hypercapnia; 2 Primary squamou s cell carcinoma of larynx; 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; Fatigue; Hypercapnia; Chronic diastol ic heart failure; Aortic valve st enosis; Hypopharyngeal lesion; Hyposmolality a nd/or hyponatremia; Lower gastroint estinal hemorrhage; Acute posthemor rhagic anemia; Orthostatic hyp otension; Ex-smoker for l ess than 1 year; Gastrostomy pre sent; Melena; Aspiration pneu monia; Severe protein- calorie malnutrition, not otherwise specified; Neuropathy due to type 2 diabetes mellitus; Bilateral tinni tus; Hypomagnesemia; Swallowing pain ful; Type 2 diabetes mellitus without complication; Multiple nodule s of lung; Essential hyper tension; Coronary arteri osclerosis, not otherwise specified; Mucopurulent ch ronic bronchitis; Laryngopharynge al reflux; Shortness of br eath; [facility] Encounter Head and Neck Ene Polk, 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 Prep for Surgery Head and Neck Ene Polk, Dyspnea , not otherwise 2 Surgery MD specified (Prim tisha Dx) Travel 2 Hospital Encounter Pulmonology Ida, Chronic obstructive 2 MD Kong pulmonary disea se with acute exacerbat ion Office Visit Pulmonology Cintia Mancia, Fatigue (Pr imary Dx); 2 MD Hypercapnia; Oyekanmi, Chronic obstruc tive pulmonary disease, not otherwise specified Liliana, CORPORATE ASSOCIATE ATTORNEY Hospital Encounter Pulmonology Cintia Mancia, Hyper capnia; 2 Chronic obstruc tive pulmonary disease, not otherwise specified Hospital Encounter Speech Pathology Alexandra De La Rosa, Pr imary squamous cell 2 PA carcinoma of larynx Rebecca Brown, CCC-WAFER FABRICATOR Travel 2 Prep for Surgery Head and Neck Ad Oralia Primar y squamous cell 2 Surgery K, PA carcinoma of la rynx (Primary Dx) Ancillary Procedure Radiology Amber Park 2 MD Orders Only Pulmonology de Lumban, Chronic obstruc tive 2 Shirley Gallego CORPORATE ASSOCIATE ATTORNEY pulmonary disea se with acute exacerbat ion (Primary Dx) Anesthesia Event Lisa Rutherford MD Surgery Endoscopy Yong Palma MD DIAGNOSTIC UPP ER 2 GASTROINTESTINA L ENDOSCOPY Anesthesia Event Endoscopy Padmini Armendariz 2 MD Orders Only Head and Neck Eddie Wells 2 Dmitriy Witt MD Prep for Surgery Gastroenterology Elizabeth Hammer, FLUE CLEANER Oth er iron deficiency 2 , Hepatology & anemia (Prima ry Dx) Nutrition Travel 2 Hospital Encounter GIM/Phase 1 Elamin, Cody, Hypopha ryngeal lesion (Primary Dx); 2 - MD Encounter for adjustment and management of vascular access device; Sofya Elmore MD Primary squamous cell carcinoma of laryn x; 2 Eugene Madelin Hypokalemia ; MD Maryse Hypophosphatemia; Mancia, Cintia, Folate defi ciency; Hypomagnesemia; Amber Park, Hypercapnia; Chronic obstruc tive pulmonary disease, not otherwise specified; Melena; Chronic diastol ic heart failure; Cancer; Aortic valve st enosis; Acute and chron ic respiratory failure with hypercapnia; Hyposmolality a nd/or hyponatremia; Lower gastroint estinal hemorrhage; Acute posthemor rhagic anemia; Orthostatic hyp otension; Ex-smoker for l ess than 1 year; Gastrostomy pre sent; Breathing-relat ed sleep disorder; Aspiration pneu monia; Severe protein- calorie malnutrition, not otherwise specified; Neuropathy due to type 2 diabetes mellitus; Bilateral tinni tus; Swallowing pain ful; Type 2 diabetes mellitus without complication; Multiple nodule s of lung; Essential hyper tension; Laryngopharynge al reflux; Chronic bronchi tis, not otherwise specified; Mucopurulent ch ronic bronchitis Travel 2 Hospital Encounter Speech Pathology Ene Polk, Dy sphagia, Lisa CRAWLEY oropharyngeal phase Kita Campos CCC-WAFER FABRICATOR Orders Only Radiation Alexandra De La Rosa, Primary squa mous cell 2 Oncology PA carcinoma of la rynx (Primary Dx) Telephone Proton Therapy Wayne Castro 2 RN Nutrition Slava Witt 2, MD Coleman, Timothy, ANDRÉS Documentation Nutrition Adele Christensen 2 Hospital Encounter Head and Neck Ene Polk, 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 (Primary Dx); 2 Surgery MD Abnormal findin gs on diagnostic imaging of skull and head, not elsewhere classified Hospital Encounter Radiology Ene Polk, Dyspha Lisa burks MD oropharyngeal phase Roberta Ortega, CCC-WAFER FABRICATOR Travel 2 Orders Only Nutrition Camilla Davenport 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); 2 A, RD Laryngopharynge al reflux; Chronic obstruc tive pulmonary disease, not otherwise specified; Severe protein- calorie malnutrition, not otherwise specified; Aspiration pneu monia; Hypomagnesemia; Type 2 diabetes mellitus without complication; Swallowing pain ful Office Visit Head and Neck Jean Marie Christy E, Primary squa mous cell 2 Medical Oncology carcinoma o f larynx Hospital Encounter Proton Therapy Slava Canseco Primary squamous cell 2 MD Nick carcinoma of la rynx Documentation Nutrition Camilla Davenport 2 A, RD Travel 2 Hospital Encounter Vascular Access Slava Canseco 2 and Procedures MD Loy Romero Craig S, CUSTOMER CARE ASSISTANT Hospital Encounter Radiology Alexandra De La Rosa, Primar y squamous cell 2 PA carcinoma of la rynx Hospital Encounter Audiology Slava Canseco Sensorine ural hearing 2 MD Nick loss, bilateral Kerline, Candy, (Primary Dx) AuD Hospital Encounter Lab Alexandra De La Rosa, Primar y squamous cell 2 PA carcinoma of la rynx Orders Only Radiation Alexandra De La Rosa, Primary squa mous cell 2 Oncology PA carcinoma of la rynx (Primary Dx) Telephone Proton Therapy Wayne Castro 2 M, RN Travel 2 Orders Only Gastroenterology Caprice Garcia Personal hi story of 2 , Hepatology & Alta PA colonic polyp (Primary Nutrition Dx) Orders Only Proton Therapy Alexandra De La Rosa, Primary sq uamous cell 2 PA carcinoma of la rynx (Primary Dx) Telephone Proton Therapy Wayne Castro 2 M, RN Documentation Head and Neck Huan Clemons 2 Surgery H Nutrition Slava Witt 2 MD Ethel Romero Debra A, RD Documentation Speech Pathology Kita Campos 2 H, CCC-WAFER FABRICATOR Documentation Speech Pathology Lisa Connolly [facility]-WAFER FABRICATOR Orders Only Head and Neck ErastoAnca Primary squ amous cell carcinoma of larynx (Primary Dx); 2 Medical Oncology H, TEACHER DRAMATICS Dysphagia, oropharyngeal phase Hospital Encounter Speech Pathology Alexandra De La Rosa, Ca nceled (Patient 2 PA Request) Crista Connolly, CCC-WAFER FABRICATOR Documentation Speech Pathology Cathleen 2 Crista Mcintosh, CCC-WAFER FABRICATOR Documentation Speech Pathology Cathleen 2 Crista cMintosh, [facility]-WAFER FABRICATOR Nutrition Nutrition Slava Canseco 2 MD Ethel Romero Debra A, RD Telephone Nutrition Camilla Davenport 2 A, RD Telephone Radiation Alexandra De La Rosa, Lisa Oncology PA Telephone April Wylie, Discharge Adrien l 2 RN Orders Only Gastroenterology Michael Lam 2 , Hepatology & DManuel, Nutrition Orders Only Speech Pathology Caprice Nolen, Dysphagi a, 2 CCC-WAFER FABRICATOR oropharyngeal p hase (Primary Dx) Anesthesia Event Endoscopy Sara Deras 2 B., Zach Knox, POOLROOM TABLE ATTENDANT Surgery Endoscopy Michael Lam DIAGNOSTIC UPP ER 2 D., GASTROINTOSMIN L ENDOSCOPY Prep for Surgery Gastroenterology Elizabeth Hammer, FLUE CLEANER Iro n deficiency 2 , Hepatology & anemia, not o therwise Nutrition specified (Prim tisha Dx) Hospital Encounter General Internal Vu, Hilario Garzon MD Chronic obstructive pulmonary disease (P rimary Dx); 2 - Medicine Alta Ferrell, Primary squ amous cell carcinoma of larynx; Type 2 diabetes mellitus without complic ation; 2 Rain, Anemia; Olegario Gamez MD Iron deficiency anemia, not otherwise sp ecified; Cintia Mancia, Aspiration pneumonia Susan Go MD Rubio, David, MD Fortique, Carla, MD Ancillary Procedure Radiology Slava Canseco Aspirati on pneumonia; 2 MD Nick Primary squamou s cell carcinoma of larynx Documentation Speech Pathology Lisa Lim [facility]-WAFER FABRICATOR Telephone Proton Therapy Wayne Castro 2 M, RN Orders Only Proton Therapy Alexandra De La Rosa, 2 PA Orders Only Proton Therapy Davina Perez 2 D, PA Orders Only Proton Therapy Davina Perez Primary sq uamous cell 2 D, PA carcinoma of la rynx (Primary Dx) Travel 2 Telephone Proton Therapy Wayne Castro 2 M, RN Hospital Encounter Speech Pathology Alexandra De La Rosa, Pr imary squamous cell 2 PA carcinoma of larynx Rebecca Brown, CCC-WAFER FABRICATOR Orders Only Radiation Alexandra De La Rosa, 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); 2 Oncology PA Aspiration pneu monia Orders Only Head and Neck Erasto, Anca Aspiration pneumonia (Primary Dx); 2 Medical Oncology H, TEACHER DRAMATICS Primary squ amous cell carcinoma of larynx Travel 2 Clinical Support Covid Alexandra De La Rosa, Suspecte d COVID-19 (Primary Dx); 2 PA Primary squamous cell carcinoma of laryn x Margo Reyes, KWAN Travel 2 Refill Proton Therapy Alexandra De La Rosa, Primary sq uamous cell carcinoma of larynx; 2 PA 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; Neuropathic farida n Refill Internal Cintia Mancia, Hypokalemia ; 2 Medicine Hypomagnesemia; Hypophosphatemi a Orders Only Radiation Johanne Harry MD Oral mucositis due to 2 Oncology radiation (Prim tisha Dx) Telephone Proton Therapy Wayne Castro 2 M, RN Documentation Head and Neck Clemons, Huan 2 Surgery H Nutrition Nutrition Slava Canseco Primary squamou s cell 2 MD Nick carcinoma of larynx Camilla Davenport RD Documentation Nutrition Adele Christensen 2 Orders Only Nutrition Camilla Davenport 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); 2 A, RD Laryngopharynge al reflux; Chronic obstruc tive pulmonary disease, not otherwise specified; Multiple nodule s of lung; Type 2 diabetes mellitus without complication; Swallowing pain ful; Severe protein- calorie malnutrition, not otherwise specified; Aspiration pneu monia Orders Only Proton Therapy Rj Alexandra, Primary sq uamous cell 2 PA carcinoma of la rynx (Primary Dx) Documentation Head and Neck Huan Clemons 2 Surgery H Refill Proton Therapy Slava Canseco Oral mucositi s due to 2 MD Nick radiation Nutrition Nutrition Slava Canseco 2, MD Ruzensky, Debra A, RD Telephone Proton Therapy Wayne Castro 2, RN Telemedicine Head and Neck Yumi Desir, Primary squa mous cell 2 Medical Oncology MD carcinoma of larynx Erasto, Anca H, TEACHER DRAMATICS Telephone Thoracic Erasto, Anca 2 Medicine H, TEACHER DRAMATICS Orders Only Head and Neck Yumi Desir, 2 Medical Oncology MD Orders Only Head and Neck Eliza Booth, KWAN Primary squ amous cell 2 Medical Oncology carcinoma o f larynx (Primary Dx) Hospital Encounter GIM/Phase 1 Josette Vasquez MD Primary squamous cell carcinoma of laryn x (Primary Dx); 2 - Eugene, Madelin Syncope; MD Maryse Hypokalemia; 2 [place]-Langl Hypomagnese kaylen; Ino smith MD Pneumonia; Cintia Mancia, Severe prot ein-calorie malnutrition, not otherwise specified; Neuropathy due to type 2 diabetes mellitus; Bilateral tinni tus; Serum creatinin e raised; Swallowing pain ful; Type 2 diabetes mellitus without complication; Multiple nodule s of lung; Nicotine depend ence; Essential hyper tension; Laryngopharynge al reflux; Acute hypoxemic respiratory failure; Aspiration pneu monia; Hypophosphatemi a; Folate deficien cy; 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 angina pectoris, not otherwise specified Hospital Encounter Proton Therapy Slava Canseco 2, MD Hospital Encounter Proton Therapy Slava Canseco 2, MD Travel 2 Hospital Encounter Proton Therapy Slava Canseco 2, MD Hospital Encounter Proton Therapy Slava Canseco 2, MD Hospital Encounter Proton Therapy Slava Canseco 2, MD Orders Only Proton Therapy Alexandra De La Rosa, Primary sq uamous cell 2 PA carcinoma of la rynx (Primary Dx) Orders Only Radiation Slava Canseco 2 Oncology MD Nick Travel 2 Infusion Infusion Alexandra De La Rosa, Primary squa mous cell 2 Services PA carcinoma of larynx Ten Goodrich (Primary Dx) Thomas Rivera, RN Nutrition Nutrition Slava Canseco 2, MD Nancy, Maame Jamil RD Office Visit Head and Neck Slava Canseco Primary squamo us cell 2 Medical Oncology MD Nick carcinoma of larynx Erasto, Anca H, TEACHER DRAMATICS Hospital Encounter Vascular Access Slava Canseco 2 and Procedures MD Leela Romero Bhumarat S, RN Hospital Encounter Proton Therapy Slava Canseco 2, MD Hospital Encounter Proton Therapy Slava Canseco 2, MD Orders Only Proton Therapy Alexandra De La Rosa, Primary sq uamous cell 2 PA carcinoma of la rynx (Primary Dx) Orders Only Proton Therapy Wayne Castro Primary s quamous cell 2 M, RN carcinoma of la rynx (Primary Dx) Orders Only Proton Therapy Alexandra De La Rosa, Primary sq uamous cell 2 PA carcinoma of la rynx (Primary Dx) Travel 2 Hospital Encounter Proton Therapy Slava Canseco 2, MD Travel 2 Hospital Encounter Infusion Yumi Desir, Primary squamous cell 2 Services carcinoma of larynx Erica Gates, (Primary Dx ) RN Hospital Encounter Proton Therapy Slava Canseco 2, MD Hospital Encounter Lab Yumi Desir, Primary squamous cell 2 MD carcinoma of la rynx Travel 2 Hospital Encounter Proton Therapy Slava Canseco 2 MD [facility] Hospital Encounter Proton Therapy Alexandra De La Rosa, Prim tisha squamous cell carcinoma of larynx; 2 PA Severe protein- calorie malnutrition, not otherwise specified Documentation Speech Pathology Cathleen, 2 Crista Mcintosh CCC-WAFER FABRICATOR Telephone Radiation AndCaprice calderón 2 Oncology MD Marisela Orders Only Proton Therapy Alexandra De La Rosa, Essential hypertension (Primary Dx); 2 PA Primary squamou s cell carcinoma of larynx Orders Only Proton Therapy Alexandra De La Rosa, Hypertensi on (Primary 2 PA Dx) Travel 2 Hospital Encounter Proton Therapy Slava Canseco 2 MD Nick Orders Only Head and Neck Erasto, Anca Laryngophar yngeal reflux (Primary Dx); 2 Medical Oncology H, IGNACIA Primary squ amous cell carcinoma of larynx Travel 2 Office Visit Head and Neck Yumi Desir, 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); 2 Medical Oncology MD Swallowing painful; Essential hyper tension Hospital Encounter Proton Slava Landa 2, MD Hospital Encounter Proton Therapy Slava Canseco 2, MD Orders Only Proton Therapy Slava Canseco Primary squam ous cell carcinoma of larynx (Primary Dx); 2 MD Nick Severe protein- calorie malnutrition, not otherwise specified Documentation Proton Therapy Maame Cruz, 2 RD Orders Only Radiation Alexandra De La Rosa, 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); 2 Oncology PA Thick sputum; Constipation, n ot otherwise specified Travel 2 Hospital Encounter Proton Slava Landa 2 MD Nick Travel 2 Infusion Infusion Yumi Desir, Primary squam ous cell 2 Services MD carcinoma of larynx Francisco, (Primary Dx) Christy Gallego RN Hospital Encounter Proton Therapy Slava Canseco 2 MD Nick Hospital Encounter Lab Yumi Desir, Primary squamous cell 2 MD carcinoma of la rynx Travel 2 Hospital Encounter Audiology Slava Canseco Sensorine ural hearing 2 MD Nick loss, bilateral Kerline, Candy, (Primary Dx) AuD Hospital Encounter Proton Therapy Slava Canseco 2, MD Travel 2 Orders Only Head and Neck Yumi Desir, 2 Medical Oncology MD Hospital Encounter Proton Therapy Slava Canseco 2, MD Hospital Encounter Proton Therapy Slava Canseco 2, MD Travel 2 Documentation Proton Therapy Maame Cruz, 2 RD Orders Only Head and Neck Erasto, Anca Primary squ amous cell 2 Medical Oncology H, TEACHER DRAMATICS carcinoma o f larynx (Primary Dx) Emergency Emergency Jerel, Hypertension (P rimary Dx); 2 Medicine MD Bela Type 2 diabetes mellitus without complication; Primary squamou s cell carcinoma of larynx Hospital Encounter Proton Therapy Slava Canseco 2, MD Travel 2 Hospital Encounter Proton Therapy Slava Canseco 2, MD Hospital Encounter Proton Therapy Alexandra De La Rosa, Prim tisha squamous cell 2 PA carcinoma of larynx Slava Canseco MD Documentation Radiation Slava Canseco 2 Oncology MD Nick Travel 2 Hospital Encounter Infusion Yumi Desir, Primary squamous cell 2 Services MD carcinoma of larynx Sam Wilson (Primary Dx ) Duran, RN Hospital Encounter Lab Yumi Desir, Primary squamous cell 2 MD carcinoma of la rynx Travel 2 Hospital Encounter Proton Therapy Slava Canseco 2, MD Orders Only Head and Neck Alyse Polk 2 Medical Oncology Denise Nuñez Orders Only Proton Therapy Alexandra De La Rosa, Primary sq uamous cell 2 PA carcinoma of la rynx (Primary Dx) Travel 2 Hospital Encounter Proton Therapy Slava Canseco 2, MD Travel 2 Office Visit Head and Neck Slava Canseco Hypomagnesemia (Primary Dx); 2 Medical Oncology MD Nick Primary squamous cell carcinoma of laryn x Erasto, Anca Sullivan, TEACHER DRAMATICS Hospital Encounter Speech Pathology Ene Polk, Dy sphagia, 2 MD oropharyngeal phase Christy Chavez, [facility]-WAFER FABRICATOR Hospital Encounter Proton Therapy Slava Canseco 2, MD Hospital Encounter Proton Therapy Slava Canseco 2, MD Documentation Proton Therapy Nancy, Maame Jamil, 2 RD Orders Only Radiation Slava Canseco Oral mucositis due to 2 Oncology MD Nick radiation (Prim tisha Dx) Orders Only Proton Therapy Wayne Castro Primary s quamous cell 2 M, RN carcinoma of la rynx (Primary Dx) Travel 2 Hospital Encounter Proton Therapy Slava Canseco 2, MD Hospital Encounter Proton Therapy Slava Canseco 2, MD Travel 2 Hospital Encounter Infusion Yumi Desir, Primary squamous cell 2 Services carcinoma of larynx Yue Alaniz, RN (Primary Dx ) Hospital Encounter Proton Slava Landa 2, MD Hospital Encounter Proton Therapy Slava Canseco 2, MD Hospital Encounter Lab Yumi Desir, Primary squamous cell 2 MD carcinoma of la rynx Orders Only Radiation Alexandra De La Rosa, 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); 2 Oncology PA Essential hyper tension Orders Only Radiation Alexandra De La Rosa, 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); 2 Oncology PA Thick sputum Travel 2 Hospital Encounter Proton Slava Landa 2, MD Travel 2 Hospital Encounter Proton Therapy Slava Canseco 2, MD Travel 2 Hospital Encounter Proton Therapy Slava Canseco 2 MD Nick Hospital Encounter Proton Therapy Slava Canseco 2 MD Nick Hospital Encounter Speech Pathology Alexandra De La Rosa, Pr imary squamous cell 2 PA carcinoma of larynx Crista Connolly, CCC-WAFER FABRICATOR Office Visit Head and Neck Yumi Desir, 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); 2 Medical Oncology MD Swallowing painful; Serum creatinin e raised; Hypomagnesemia Documentation Proton Therapy Maame Cruz, 2 RD Travel 2 Hospital Encounter Proton Therapy Slava Canseco 2 MD Nick Travel 2 Hospital Encounter Proton Therapy Slava Canseco 2 MD Nick Hospital Encounter Infusion Yumi Desir, Primary squamous cell 2 Services MD carcinoma of la rynx (Primary Dx) Hospital Encounter Lab Yumi Desir, Primary squamous cell 2 MD carcinoma of la rynx Orders Only Head and Neck Alyse Polk 2 Medical Oncology [place], PharmMiguel Orders Only Head and Neck Yumi Desir, 2 Medical Oncology MD Travel 2 Hospital Encounter Proton Therapy Slava Canseco 1 MD Nick Documentation Radiation Romeo Hein 1 Oncology Travel 1 Office Visit Head and Neck Brenda Grove, Primary sq uamous cell carcinoma of larynx (Primary Dx); 1 Medical Oncology MD Encounter f or antineoplastic chemotherapy Hospital Encounter Proton Therapy Yue Stahl 1 MD Piero Eagle Anna, MD Hospital Encounter Proton Therapy Slava Canseco 1 MD Nick Travel 1 Hospital Encounter Proton Therapy Slava Canseco 1 MD Nick Nutrition Nutrition Slava Canseco 1 MD Nick Nancy, Maame Jamil, RD Hospital Encounter Proton Therapy Slava Canseco 1 MD Nick Travel 1 Infusion Infusion Ymui Desir, Primary squam ous cell 1 Services carcinoma of larynx Cole Rosenthal, (Primary Dx) RN Hospital Encounter Proton Therapy Slava Canseco MD Hospital Encounter Lab Yumi Desir 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 Travel 1 Office Visit Head and Neck Yumi Desir, Primary squa mous cell 1 Medical Oncology MD carcinoma o f larynx Hospital Encounter Proton Therapy Slava Canseco MD Hospital Encounter Proton Therapy Slava Canseco MD Orders Only Proton Therapy Alexandra De La Rosa, Primary sq uamous cell carcinoma of larynx (Primary Dx); 1 PA 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; Radiation derma titis; Neuropathic farida n Travel 1 Hospital Encounter Proton Therapy Slava Canseco MD Travel 1 Hospital Encounter Proton Therapy Slava Canseco MD Infusion Infusion Yumi Desir, Primary squam ous cell 1 Services carcinoma of larynx Roc James (Primary Dx) J III, RN Hospital Encounter Lab Yumi Desir, 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 Hospital Encounter Proton Therapy Slava Canseco MD Travel 1 Hospital Encounter Proton Slava Landa MD Documentation Radiation Caprice Nguyen 1 Oncology MD Dulce Travel 1 Nutrition Nutrition Slava Canseco MD Nancy, Maame Jamil, ANDRÉS Orders Only Head and Neck Ene Polk, Dysphagia, 1 Surgery MD oropharyngeal p hase (Primary Dx) Hospital Encounter Radiology Alexandra De La Rosa, Primar y squamous cell 1 PA carcinoma of larynx Cady Zuleta, CCC-WAFER FABRICATOR Travel 1 Hospital Encounter Proton Therapy Slava Canseco MD Orders Only Head and Neck ErastoAnnieAnca 1 Medical Oncology H, TEACHER DRAMATICS Documentation Head and Neck Clemons, Huan 1 Surgery H Documentation Radiation Slava Canseco 1 Oncology MD Nick Multidisciplinary Head and Neck Melita, 1 Visit Surgery OUMAR Lara Orders Only Head and Neck Yumi Desir, Primary squa mous cell 1 Medical Oncology carcinoma o f larynx (Primary Dx) Consult Head and Neck Yumi Desir, 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); 1 Medical Oncology MD Tobacco use ; Multiple nodule s of lung Hospital Encounter Audiology Slava Canseco Sensorine ural hearing loss, bilateral (Primary Dx); 1 MD Nick Primary squamou s cell carcinoma of larynx Hospital Encounter Proton Therapy Alexandra De La Rosa, Prim tisha squamous cell 1 PA carcinoma of larynx Slava Canseco MD Hospital Encounter Proton Therapy Alexandra De La Rosa, Prim tisha squamous cell 1 PA carcinoma of la rynx Clinical Support Alexandra Sykes, Liliam r for observation for other suspected exposure to biological agent ruled out (Primary Dx); 1 PA Primary squamous cell carcinoma of laryn x Thao Baldwin MA Documentation Radiation Slava Canseco 1 Oncology MD Nick Documentation Head and Neck Haroon Roblesyn R 1 Medical Oncology Documentation Radiation Slava Canseco 1 Oncology MD Nick Orders Only Radiation Jose Martin Sweeney 1 Oncology MD Diana PhD Travel 1 Orders Only Proton Therapy Slava Canseco Primary squam ous cell 1 MD Nick carcinoma of la rynx (Primary Dx) Hospital Encounter Dental Oncology Yobany Jovel ter for 1 Elva, DDS observation for other suspected disea se ruled out Hospital Encounter Dental Oncology Med, Burakar y squamous cell carcinoma of larynx (Primary Dx); 1 Elva, DDS Encounter for o bservation for other suspected disease ruled out; Accretion on te eth; [facility] Hospital Encounter Speech Pathology Alexandra De La Rosa, Pr imary squamous cell 1 PA carcinoma of larynx Sara Harris, PhD Hospital Encounter Head and Neck Ene Polk, Tobac co use (Primary Dx); 1 Surgery MD Primary squamou s cell carcinoma of larynx; Laryngopharynge al reflux; Peripheral vasc ular disease; Essential hyper tension; Disorder of car otid artery; 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, not otherwise specified; Chronic bronchi tis, not otherwise specified Travel 1 Orders Only Dental Oncology Alduraiby, Encounter fo r 1 Dixie Fierro, observation for other MD suspected disea se ruled out (Prim tisha Dx) Hospital Encounter Proton Therapy Slava Canseco Primary squamous cell 1 MD Nick carcinoma of la rynx (Primary Dx) Clinical Support Alexandra Sykes, Suspecte d COVID-19 (Primary Dx); 1 PA Primary squamous cell carcinoma of laryn x Trixie Hollingsworth, RN Hospital Encounter Lab Yumi Desir, Primary squamous cell 1 MD carcinoma of la rynx Orders Only Radiation Manzar, Jose Martin Primary squamo us cell 1 Oncology MD Diana PhD carcinoma of larynx (Primary Dx) Travel 1 Hospital Encounter Lab Alexandra De La Rosa Primar y squamous cell 1 PA carcinoma of la rynx Ancillary Procedure Radiology Alexandra De La Rosa, Prima ry squamous cell 1 PA carcinoma [place] 1 Travel 1 Orders Only Head and Neck Yumi Desir, Primary squa mous cell 1 Medical Oncology carcinoma o f larynx (Primary Dx) Orders Only Radiology Yesenia Simmons 1 MD Mallika Orders Only Proton Therapy Alexandra De La Rosa, 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) Ancillary Procedure Radiology Cancer 1 Ancillary Procedure Radiology Cancer 1 Ancillary Procedure Radiology Cancer 1 Ancillary Procedure Radiology Cancer 1 Ancillary Procedure Radiology Cancer 1 Ancillary Procedure Radiology Cancer 1 Lab Requisition Steve Munguia MD Xu, Ya, MD after 01/13/2021 Immunizations Name Administration Dates Next Due Moderna SARS-CoV-2 Booster Vaccination (50 mcg/0.25 04/16/20 21 mL) Moderna SARS-CoV-2 Vaccination 08/07/2020, 07/10/2020 Surgical History Surgery Date Site/Laterality Comments CHOLECYSTECTOMY FEMORAL ARTERY STENT Left Left leg TX ESOPHAGOGASTRODUODENOSCOPY 08/29/2021 Esophagus/N/A Pr ocedure: DIAGNOSTIC TRANSORAL DIAGNOSTIC UPPER GASTR OINTESTINAL ENDOSCOPY; Surge on: Michael Lam MD; Location: MAIN ENDOSCOPY; Servi ce: GASTROENTEROLOGY TX COLONOSCOPY FLX DX W/COLLJ SPEC 08/29/2021 N/A Procedure: DIAGNOSTIC WHEN PFRMD FLEXIBLE COLONOS COPY PROXIMAL TO SPLE GINA FLEXURE; Surgeon : Michael Lam MD; L ocation: MAIN ENDOSCOPY; Service: GASTROENTEROLOGY TX ESOPHAGOGASTRODUODENOSCOPY 10/18/2021 Esophagus/N/A Pr ocedure: DIAGNOSTIC TRANSORAL DIAGNOSTIC UPPER GASTR OINTESTINAL ENDOSCOPY; Surge on: Yong Palma MD; Locati on: MAIN ENDOSCOPY; Servi ce: GASTROENTEROLOGY TX GI IMAG INTRALUMINAL 10/18/2021 N/A Procedur e: INTRALUMINAL ESOPHAGUS-ILEUM W/I&R GASTROINTE STINAL TRACT IMAGING OF ESOPH JENNIFER THROUGH ILEUM; S urgeon: Yong Palma MD; Lo cation: MAIN ENDOSCOPY; Service: GASTROENTEROLOGY TX TRACHEOSTOMY, PLANNED 11/08/2021 Neck/Midline Procedu re: TRACHEOSTOMY - PLANNED; Surge on: Samantha Escobar; Location: MAIN O R; Service: HN - HE AD & NECK SURGERY TX ESOPHAGOSCOPY FLEXIBLE TRANSORAL 11/08/2021 Esophagus/N/ A Procedure: DIAGNOSTIC DIAGNOSTIC FLEXIBLE OR RIGI D ESOPHAGOSCOPY; S urgeon: Samantha Escobar; Location: MAIN O R; Service: HN - HE AD & NECK SURGERY TX LARYNGOSCOPY,DIRCT,OP,BIOPSY 11/08/2021 Mouth/N/A Procedure: DIRECT OPERATIVE LARYNG OSCOPY WITH BIOPSY; Nikita geon: Samantha Escobar; Location: MAIN O R; Service: HN - HE AD & NECK SURGERY Medical History Medical History Date Comments Type [...] at Date Recorded Male 04/26/2021 3:55 PM [employer] Job Start Date Occupation Industry Not on file Not on file Not on file Travel History Travel Start Travel End [place] 04/28/2021 05/01/2021 COVID-19 Exposure Response Date Recorded In the last 10 days, have you been in contact with No / Unsu re 01/12/2022 2:06 PM CDT someone who was confirmed or suspected to have Coronavirus/COVID-19? Obstetrics History Last Filed Vital Signs Vital Sign Reading Time Taken Comments Blood Pressure 159/63 01/12/2022 12:10 PM CDT Pulse 63 01/12/2022 12:10 PM CDT Temperature 36.9 C (98.4 F) 01/12/2022 12:10 PM CDT Respiratory Rate 16 01/12/2022 12:10 PM CDT Oxygen Saturation 98% 01/12/2022 12:10 PM CDT Inhaled Oxygen Concentration - - Weight 59.6 kg (131 lb 6.3 oz) 01/12/2022 12:10 PM CDT Height 167 cm (5' 5.75") 01/12/2022 12:10 PM CDT Body Mass Index 21.37 01/12/2022 12:10 PM CDT Plan of Treatment Date Type Specialty Care Team Description 02/01/2022 Ancillary Procedure Radiology Oumar Ahuja MD [address] [place] [phone] (Wo rk) 02/09/2022 Appointment Pulmonology Slava Canesco MD [address] [place] [address] [phone] (Wo rk) 02/09/2022 Appointment Pulmonology Slava Canseco MD [address] [place] [address] [phone] (Wo rk) 02/09/2022 Office Visit Pulmonology Slava Canseco MD [address] [place] [phone] Liliana Martin NP [address] [place] [phone] 02/23/2022 Appointment Speech Pathology Ene Polk MD [address] [place] [phone] Christy Chavez, [facility] [address] [place] [phone] 02/23/2022 Appointment Speech Pathology Slava Canseco MD [address] [place] [phone] Christy Chavez, [facility] [address] [place] [phone] 02/24/2022 Appointment Head and Neck Surgery Cipriano Polk MD [address] [place], [place] 7703 (Wo rk) 03/02/2022 Appointment Radiology Ene Polk MD [address] [place], [place] 7703 (Wo rk) 06/26/2022 Appointment Radiology Ene Polk MD [address] [place], [place] 7703 (Wo rk) Health Maintenance Due Date Last Done Comments COVID-19 Vaccination (3 - Moderna 05/14/2021 04/16/2021, , risk series) 07/10/2020 Medical Devices Implanted Type Area Sleeve Setter Device Identifier Shelf Exp iration Model / Serial Date / Lot Stent Stent Description: left side/aorta Procedures Procedure Name Priority Date/Time Associated Comments Diagnosis FRACTIONATED BILIRUBIN Routine 01/12/2022 10:00 Cellulitis of neck Results for AM CDT this procedure are in the results section. TOTAL PROTEIN Routine 01/12/2022 10:00 Cellulitis of neck Resu lts for AM CDT this procedure are in the results section. ASPARTATE Routine 01/12/2022 10:00 Cellulitis of neck Resul ts for AMINOTRANSFERASE AM CDT this proced ure are in the results section. ALANINE Routine 01/12/2022 10:00 Cellulitis of neck Resul ts for AMINOTRANSFERASE AM CDT this proced ure are in the results section. ALKALINE PHOSPHATASE Routine 01/12/2022 10:00 Cellulitis of ne ck Results for AM CDT this procedure are in the results section. ALBUMIN LEVEL Routine 01/12/2022 10:00 Cellulitis of neck Resu lts for AM CDT this procedure are in the results section. CALCIUM LEVEL TOTAL Routine 01/12/2022 10:00 Cellulitis of nec k Results for AM CDT this procedure are in the results section. .GLOMERULAR FILTRATION Routine 01/12/2022 10:00 Cellulitis of neck Results for RATE AM CDT this procedure are in the results section. SERUM CREATININE Routine 01/12/2022 10:00 Cellulitis of neck R esults for AM CDT this procedure are in the results section. ELECTROLYTE PANEL Routine 01/12/2022 10:00 Cellulitis of neck Results for AM CDT this procedure are in the results section. BLOOD UREA NITROGEN Routine 01/12/2022 10:00 Cellulitis of nec k Results for AM CDT this procedure are in the results section. GLUCOSE LEVEL Routine 01/12/2022 10:00 Cellulitis of neck Resu lts for AM CDT this procedure are in the results section. MANUAL DIFFERENTIAL Routine 01/12/2022 10:00 Cellulitis of nec k Results for AM CDT this procedure are in the results section. Results CBC Routine 01/12/2022 10:00 Cellulitis of neck Resul ts for AM CDT this procedure are in the results section. SEDIMENTATION RATE Routine 01/12/2022 10:00 Cellulitis of neck Results for NON-AUTOMATED AM CDT this procedure are in the results section. C REACTIVE PROTEIN Routine 01/12/2022 10:00 Cellulitis of neck Results for AM CDT this procedure are in the results section. 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 VERIFY CATHETER TIP Routine 12/28/2021 6:30 Encounter for Resu lts for PLACEMENT PM CDT adjustment and this procedur e management of are in the vascular access results device section. XR CHEST 2 VW POST Routine 12/28/2021 6:01 Encounter for Resul ts for IMPLANT PM CDT adjustment and this procedur e management of are in the vascular access results device section. INSERT VASCULAR ACCESS Routine 12/28/2021 5:25 Cellulitis of n jasmeet Results for DEVICE PM CDT this procedure are in the results section. VASCULAR ACCESS Routine 12/28/2021 3:17 Encounter for Results for ULTRASOUND PM CDT adjustment and this procedur e management of are in the vascular access results device section. LOWER RESPIRATORY Routine 12/16/2021 9:21 Results for CULTURE W/ GRAM STAIN AM CDT this p rocedure are in the results section. 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 of other part of digestive tract XR CHEST 2 VW Routine 12/09/2021 9:09 Chronic obstructive Resu lts for AM CDT pulmonary disease this proce dure with acute are in the exacerbation results section. POC GLUCOSE SCREEN Routine 11/17/2021 10:16 Resul ts for PM CDT this procedure are in the results section. URINALYSIS WITH Now 11/17/2021 9:40 Results f or MICROSCOPIC IF PM CDT this procedur e INDICATED are in the results section. URINE CULTURE Now 11/17/2021 9:40 Results for PM CDT this procedure are in the results section. ARTERIAL BLOOD GAS Routine 11/17/2021 9:33 Result s for PM CDT this procedure are in the results section. CT CHEST PULMONARY Routine 11/17/2021 7:30 Result s for EMBOLISM W CONTRAST PM CDT this pro cedure are in the results section. CT SOFT TISSUE NECK W Routine 11/17/2021 7:30 Res ults for CONTRAST PM CDT this procedure are in the results section. POC VENOUS BLOOD GAS + Routine 11/17/2021 2:40 Re sults for LACTATE PM CDT this procedure are in the results section. FRACTIONATED BILIRUBIN Now 11/17/2021 2:37 Re sults for PM CDT this procedure are in the results section. TOTAL PROTEIN Now 11/17/2021 2:37 Results for PM CDT this procedure are in the results section. ASPARTATE Now 11/17/2021 2:37 Results for AMINOTRANSFERASE PM CDT this proced ure are in the results section. ALANINE Now 11/17/2021 2:37 Results for AMINOTRANSFERASE PM CDT this proced ure are in the results section. ALKALINE PHOSPHATASE Now 11/17/2021 2:37 Resu lts for PM CDT this procedure are in the results section. ALBUMIN LEVEL Now 11/17/2021 2:37 Results for PM CDT this procedure are in the results section. CALCIUM LEVEL TOTAL Now 11/17/2021 2:37 Resul ts for PM CDT this procedure are in the results section. .GLOMERULAR FILTRATION Now 11/17/2021 2:37 Re sults for RATE PM CDT this procedure are in the results section. SERUM CREATININE Now 11/17/2021 2:37 Results for PM CDT this procedure are in the results section. ELECTROLYTE PANEL Now 11/17/2021 2:37 Results for PM CDT this procedure are in the results section. BLOOD UREA NITROGEN Now 11/17/2021 2:37 Resul ts for PM CDT this procedure are in the results section. GLUCOSE LEVEL Now 11/17/2021 2:37 Results for PM CDT this procedure are in the results section. MANUAL DIFFERENTIAL Now 11/17/2021 2:37 Resul ts for PM CDT this procedure are in the results section. Results CBC STAT 11/17/2021 2:37 Results for PM CDT this procedure are in the results section. APTT Now 11/17/2021 2:37 Results for PM CDT this procedure are in the results section. PROTHROMBIN TIME Now 11/17/2021 2:37 Results for PM CDT this procedure are in the results section. NT PRO BNP Now 11/17/2021 2:37 Results for PM CDT this procedure are in the results section. CARDIAC PANEL Timed Study 11/17/2021 2:37 Results for PM CDT this procedure are in the results section. PROCALCITONIN Now 11/17/2021 2:37 Results for PM CDT this procedure are in the results section. PHOSPHORUS LEVEL Now 11/17/2021 2:37 Results for PM CDT this procedure are in the results section. MAGNESIUM LEVEL Now 11/17/2021 2:37 Results f or PM CDT this procedure are in the results section. COMPREHENSIVE METABOLIC Now 11/17/2021 2:37 PANEL PM CDT COMPLETE BLOOD COUNT W/ Now 11/17/2021 2:37 DIFFERENTIAL PM CDT COVID-19 (SARS-COV-2) Now 11/17/2021 2:37 Res ults for ASYMPTOMATIC-LT PM CDT this procedu re are in the results section. BLOODCULTURE Now 11/17/2021 2:37 Results for PM CDT this procedure are in the results section. POC GLUCOSE SCREEN Routine 11/12/2021 7:18 Result s for AM CDT this procedure are in the results section. MANUAL DIFFERENTIAL AM 11/12/2021 4:24 Resul ts for AM CDT this procedure are in the results section. Results CBC AM 11/12/2021 4:24 Results for AM CDT this procedure are in the results section. CALCIUM LEVEL TOTAL AM 11/12/2021 4:24 Resul ts for AM CDT this procedure are in the results section. .GLOMERULAR FILTRATION AM 11/12/2021 4:24 Re sults for RATE AM CDT this procedure are in the results section. SERUM CREATININE AM 11/12/2021 4:24 Results for AM CDT this procedure are in the results section. ELECTROLYTE PANEL AM 11/12/2021 4:24 Results for AM CDT this procedure are in the results section. BLOOD UREA NITROGEN AM 11/12/2021 4:24 Resul ts for AM CDT this procedure are in the results section. GLUCOSE LEVEL AM 11/12/2021 4:24 Results for AM CDT this procedure are in the results section. COMPLETE BLOOD COUNT W/ AM 11/12/2021 4:24 DIFFERENTIAL AM CDT PHOSPHORUS LEVEL AM 11/12/2021 4:24 Results for AM CDT this procedure are in the results section. MAGNESIUM LEVEL AM 11/12/2021 4:24 Results f or AM CDT this procedure are in the results section. BASIC METABOLIC PANEL, AM 11/12/2021 4:24 CALCIUM TOTAL AM CDT POC GLUCOSE SCREEN Routine 11/11/2021 11:06 Resul ts for PM CDT this procedure are in the results section. POC GLUCOSE SCREEN Routine 11/11/2021 7:33 Result s for PM CDT this procedure are in the results section. POC GLUCOSE SCREEN Routine 11/11/2021 3:31 Result s for PM CDT this procedure are in the results section. POC GLUCOSE SCREEN Routine 11/11/2021 12:29 Resul ts for PM CDT this procedure are in the results section. POC GLUCOSE SCREEN Routine 11/11/2021 7:57 Result s for AM CDT this procedure are in the results section. MANUAL DIFFERENTIAL AM 11/11/2021 3:47 Resul ts for AM CDT this procedure are in the results section. Results CBC AM 11/11/2021 3:47 Results for AM CDT this procedure are in the results section. CALCIUM LEVEL TOTAL AM 11/11/2021 3:47 Resul ts for AM CDT this procedure are in the results section. .GLOMERULAR FILTRATION AM 11/11/2021 3:47 Re sults for RATE AM CDT this procedure are in the results section. SERUM CREATININE AM 11/11/2021 3:47 Results for AM CDT this procedure are in the results section. ELECTROLYTE PANEL AM 11/11/2021 3:47 Results for AM CDT this procedure are in the results section. BLOOD UREA NITROGEN AM 11/11/2021 3:47 Resul ts for AM CDT this procedure are in the results section. GLUCOSE LEVEL AM 11/11/2021 3:47 Results for AM CDT this procedure are in the results section. COMPLETE BLOOD COUNT W/ AM 11/11/2021 3:47 DIFFERENTIAL AM CDT PHOSPHORUS LEVEL AM 11/11/2021 3:47 Results for AM CDT this procedure are in the results section. MAGNESIUM LEVEL AM 11/11/2021 3:47 Results f or AM CDT this procedure are in the results section. BASIC METABOLIC PANEL, AM 11/11/2021 3:47 CALCIUM TOTAL AM CDT POC GLUCOSE SCREEN Routine 11/10/2021 5:31 Result s for PM CDT this procedure are in the results section. SODIUM LEVEL Routine 11/10/2021 2:27 Results for PM CDT this procedure are in the results section. POC GLUCOSE SCREEN Routine 11/10/2021 12:38 Resul ts for PM CDT this procedure are in the results section. GENERAL LABORATORY ADD Now 11/10/2021 9:06 Re sults for ON TEST AM CDT this procedure are in the results section. POC GLUCOSE SCREEN Routine 11/10/2021 9:05 Result s for AM CDT this procedure are in the results section. NT PRO BNP Routine 11/10/2021 9:03 Results for AM CDT this procedure are in the results section. MANUAL DIFFERENTIAL AM 11/10/2021 3:47 Resul ts for AM CDT this procedure are in the results section. Results CBC AM 11/10/2021 3:47 Results for AM CDT this procedure are in the results section. CALCIUM LEVEL TOTAL AM 11/10/2021 3:47 Resul ts for AM CDT this procedure are in the results section. .GLOMERULAR FILTRATION AM 11/10/2021 3:47 Re sults for RATE AM CDT this procedure are in the results section. SERUM CREATININE AM 11/10/2021 3:47 Results for AM CDT this procedure are in the results section. ELECTROLYTE PANEL AM 11/10/2021 3:47 Results for AM CDT this procedure are in the results section. BLOOD UREA NITROGEN AM 11/10/2021 3:47 Resul ts for AM CDT this procedure are in the results section. GLUCOSE LEVEL AM 11/10/2021 3:47 Results for AM CDT this procedure are in the results section. COMPLETE BLOOD COUNT W/ AM 11/10/2021 3:47 DIFFERENTIAL AM CDT PHOSPHORUS LEVEL AM 11/10/2021 3:47 Results for AM CDT this procedure are in the results section. MAGNESIUM LEVEL AM 11/10/2021 3:47 Results f or AM CDT this procedure are in the results section. BASIC METABOLIC PANEL, AM 11/10/2021 3:47 CALCIUM TOTAL AM CDT POC GLUCOSE SCREEN Routine 11/09/2021 5:24 Result s for PM CDT this procedure are in the results section. POC GLUCOSE SCREEN Routine 11/09/2021 8:07 Result s for AM CDT this procedure are in the results section. MANUAL DIFFERENTIAL AM 11/09/2021 4:01 Resul ts for AM CDT this procedure are in the results section. Results CBC AM 11/09/2021 4:01 Results for AM CDT this procedure are in the results section. CALCIUM LEVEL TOTAL AM 11/09/2021 4:01 Resul ts for AM CDT this procedure are in the results section. .GLOMERULAR FILTRATION AM 11/09/2021 4:01 Re sults for RATE AM CDT this procedure are in the results section. SERUM CREATININE AM 11/09/2021 4:01 Results for AM CDT this procedure are in the results section. ELECTROLYTE PANEL AM 11/09/2021 4:01 Results for AM CDT this procedure are in the results section. BLOOD UREA NITROGEN AM 11/09/2021 4:01 Resul ts for AM CDT this procedure are in the results section. GLUCOSE LEVEL AM 11/09/2021 4:01 Results for AM CDT this procedure are in the results section. COMPLETE BLOOD COUNT W/ AM 11/09/2021 4:01 DIFFERENTIAL AM CDT PHOSPHORUS LEVEL AM 11/09/2021 4:01 Results for AM CDT this procedure are in the results section. MAGNESIUM LEVEL AM 11/09/2021 4:01 Results f or AM CDT this procedure are in the results section. BASIC METABOLIC PANEL, AM 11/09/2021 4:01 CALCIUM TOTAL AM CDT XR CHEST 1 VW STAT 11/08/2021 5:54 Results for PM CDT this procedure are in the results section. POC GLUCOSE SCREEN Routine 11/08/2021 5:53 Result s for PM CDT this procedure are in the results section. PATHOLOGY SURGICAL Routine 11/08/2021 4:12 Dyspnea, not Result s for INTERPRETATION PM CDT otherwise specified this p rocedure are in the results section. DIRECT OPERATIVE 11/08/2021 2:47 Dyspnea, not LARYNGOSCOPY WITH PM CDT otherwise specified BIOPSY DIAGNOSTIC FLEXIBLE OR 11/08/2021 2:47 Dyspnea, not RIGID ESOPHAGOSCOPY PM CDT otherwise specified TRACHEOSTOMY - PLANNED 11/08/2021 2:47 Dyspnea, not PM CDT otherwise specified POC GLUCOSE SCREEN Routine 11/08/2021 2:34 Result s for PM CDT this procedure are in the results section. COVID-19 (SARS-COV-2) Now 11/08/2021 1:47 Res ults for ASYMPTOMATIC-LT PM CDT this procedu re are in the results section. FLEXIBLE NASOPHARYNGEAL Routine 11/07/2021 6:14 R esults for LARYNGOSCOPY PM CDT this procedure are in the results section. SPIROMETRY W/O Routine 11/07/2021 3:14 Hypercapnia Results for DILATORS, DLCO AND BODY PM CDT Chronic obstructi ve this procedure PLETHSMOGRAPHIC LUNG pulmonary disease, a re in the VOLUMES not otherwise results specified section. 6 MINUTE WALK TEST Routine 11/07/2021 3:14 Chronic obstructive PM CDT pulmonary disease with acute exacerbation POC GLUCOSE SCREEN Routine 10/27/2021 12:39 Resul ts for PM CDT this procedure are in the results section. CLOT EXPIRATION DATE Routine 10/27/2021 5:10 Resu lts for AM CDT this procedure are in the results section. ABORH MANUAL Routine 10/27/2021 5:10 Results for AM CDT this procedure are in the results section. MANUAL DIFFERENTIAL AM 10/27/2021 5:10 Resul ts for AM CDT this procedure are in the results section. Results CBC AM 10/27/2021 5:10 Results for AM CDT this procedure are in the results section. CALCIUM IONIZED, VENOUS AM 10/27/2021 5:10 R esults for AM CDT this procedure are in the results section. .GLOMERULAR FILTRATION AM 10/27/2021 5:10 Re sults for RATE AM CDT this procedure are in the results section. SERUM CREATININE AM 10/27/2021 5:10 Results for AM CDT this procedure are in the results section. ELECTROLYTE PANEL AM 10/27/2021 5:10 Results for AM CDT this procedure are in the results section. BLOOD UREA NITROGEN AM 10/27/2021 5:10 Resul ts for AM CDT this procedure are in the results section. GLUCOSE LEVEL AM 10/27/2021 5:10 Results for AM CDT this procedure are in the results section. COMPLETE BLOOD COUNT W/ AM 10/27/2021 5:10 DIFFERENTIAL AM CDT PHOSPHORUS LEVEL AM 10/27/2021 5:10 Results for AM CDT this procedure are in the results section. MAGNESIUM LEVEL AM 10/27/2021 5:10 Results f or AM CDT this procedure are in the results section. BASIC METABOLIC PANEL, AM 10/27/2021 5:10 CALCIUM IONIZED AM CDT POC GLUCOSE SCREEN Routine 10/27/2021 12:04 Resul ts for AM CDT this procedure are in the results section. POC GLUCOSE SCREEN Routine 10/26/2021 5:36 Result s for PM CDT this procedure are in the results section. ARTERIAL BLOOD GAS Routine 10/26/2021 5:19 Result s for PM CDT this procedure are in the results section. OSCILLATORY PEP Routine 10/26/2021 2:00 PM CDT POC GLUCOSE SCREEN Routine 10/26/2021 11:42 Resul ts for AM CDT this procedure are in the results section. OSCILLATORY PEP Routine 10/26/2021 8:00 AM CDT MANUAL DIFFERENTIAL AM 10/26/2021 5:20 Resul ts for AM CDT this procedure are in the results section. Results CBC AM 10/26/2021 5:20 Results for AM CDT this procedure are in the results section. CALCIUM IONIZED, VENOUS AM 10/26/2021 5:20 R esults for AM CDT this procedure are in the results section. .GLOMERULAR FILTRATION AM 10/26/2021 5:20 Re sults for RATE AM CDT this procedure are in the results section. SERUM CREATININE AM 10/26/2021 5:20 Results for AM CDT this procedure are in the results section. ELECTROLYTE PANEL AM 10/26/2021 5:20 Results for AM CDT this procedure are in the results section. BLOOD UREA NITROGEN AM 10/26/2021 5:20 Resul ts for AM CDT this procedure are in the results section. GLUCOSE LEVEL AM 10/26/2021 5:20 Results for AM CDT this procedure are in the results section. COMPLETE BLOOD COUNT W/ AM 10/26/2021 5:20 DIFFERENTIAL AM CDT PHOSPHORUS LEVEL AM 10/26/2021 5:20 Results for AM CDT this procedure are in the results section. MAGNESIUM LEVEL AM 10/26/2021 5:20 Results f or AM CDT this procedure are in the results section. BASIC METABOLIC PANEL, AM 10/26/2021 5:20 CALCIUM IONIZED AM CDT POC GLUCOSE SCREEN Routine 10/26/2021 12:14 Resul ts for AM CDT this procedure are in the results section. OSCILLATORY PEP Routine 10/25/2021 8:00 PM CDT POC GLUCOSE SCREEN Routine 10/25/2021 5:58 Result s for PM CDT this procedure are in the results section. OSCILLATORY PEP Routine 10/25/2021 2:00 PM CDT POC GLUCOSE SCREEN Routine 10/25/2021 11:44 Resul ts for AM CDT this procedure are in the results section. OSCILLATORY PEP Routine 10/25/2021 8:00 AM CDT POC GLUCOSE SCREEN Routine 10/25/2021 6:48 Result s for AM CDT this procedure are in the results section. CLOT EXPIRATION DATE Routine 10/25/2021 5:02 Resu lts for AM CDT this procedure are in the results section. ABORH MANUAL Routine 10/25/2021 5:02 Results for AM CDT this procedure are in the results section. TMP INTERPRETATION Routine 10/25/2021 5:02 Result s for ANTIBODY SCREEN AM CDT this procedu re NEGATIVE are in the results section. MANUAL DIFFERENTIAL AM 10/25/2021 5:02 Resul ts for AM CDT this procedure are in the results section. Results CBC AM 10/25/2021 5:02 Results for AM CDT this procedure are in the results section. CALCIUM IONIZED, VENOUS AM 10/25/2021 5:02 R esults for AM CDT this procedure are in the results section. .GLOMERULAR FILTRATION AM 10/25/2021 5:02 Re sults for RATE AM CDT this procedure are in the results section. SERUM CREATININE AM 10/25/2021 5:02 Results for AM CDT this procedure are in the results section. ELECTROLYTE PANEL AM 10/25/2021 5:02 Results for AM CDT this procedure are in the results section. BLOOD UREA NITROGEN AM 10/25/2021 5:02 Resul ts for AM CDT this procedure are in the results section. GLUCOSE LEVEL AM 10/25/2021 5:02 Results for AM CDT this procedure are in the results section. COMPLETE BLOOD COUNT W/ AM 10/25/2021 5:02 DIFFERENTIAL AM CDT PHOSPHORUS LEVEL AM 10/25/2021 5:02 Results for AM CDT this procedure are in the results section. MAGNESIUM LEVEL AM 10/25/2021 5:02 Results f or AM CDT this procedure are in the results section. BASIC METABOLIC PANEL, AM 10/25/2021 5:02 CALCIUM IONIZED AM CDT ANTIBODY SCREEN Routine 10/25/2021 5:02 Results f or AM CDT this procedure are in the results section. TYPE AND SCREEN Routine 10/25/2021 5:02 AM CDT OSCILLATORY PEP Routine 10/25/2021 2:00 AM CDT POC GLUCOSE SCREEN Routine 10/24/2021 11:59 Resul ts for PM CDT this procedure are in the results section. OSCILLATORY PEP Routine 10/24/2021 8:00 PM CDT POC GLUCOSE SCREEN Routine 10/24/2021 6:01 Result s for PM CDT this procedure are in the results section. OSCILLATORY PEP Routine 10/24/2021 2:00 PM CDT POC GLUCOSE SCREEN Routine 10/24/2021 11:48 Resul ts for AM CDT this procedure are in the results section. OSCILLATORY PEP Routine 10/24/2021 8:00 AM CDT OSCILLATORY PEP Routine 10/24/2021 2:00 AM CDT POC GLUCOSE SCREEN Routine 10/23/2021 11:31 Resul ts for PM CDT this procedure are in the results section. OSCILLATORY PEP Routine 10/23/2021 8:00 PM CDT POC GLUCOSE SCREEN Routine 10/23/2021 6:09 Result s for PM CDT this procedure are in the results section. OSCILLATORY PEP Routine 10/23/2021 2:00 PM CDT POC GLUCOSE SCREEN Routine 10/23/2021 11:58 Resul ts for AM CDT this procedure are in the results section. OSCILLATORY PEP Routine 10/23/2021 8:00 AM CDT MANUAL DIFFERENTIAL AM 10/23/2021 5:13 Resul ts for AM CDT this procedure are in the results section. Results CBC AM 10/23/2021 5:13 Results for AM CDT this procedure are in the results section. CALCIUM IONIZED, VENOUS AM 10/23/2021 5:13 R esults for AM CDT this procedure are in the results section. .GLOMERULAR FILTRATION AM 10/23/2021 5:13 Re sults for RATE AM CDT this procedure are in the results section. SERUM CREATININE AM 10/23/2021 5:13 Results for AM CDT this procedure are in the results section. ELECTROLYTE PANEL AM 10/23/2021 5:13 Results for AM CDT this procedure are in the results section. BLOOD UREA NITROGEN AM 10/23/2021 5:13 Resul ts for AM CDT this procedure are in the results section. GLUCOSE LEVEL AM 10/23/2021 5:13 Results for AM CDT this procedure are in the results section. COMPLETE BLOOD COUNT W/ AM 10/23/2021 5:13 DIFFERENTIAL AM CDT PHOSPHORUS LEVEL AM 10/23/2021 5:13 Results for AM CDT this procedure are in the results section. MAGNESIUM LEVEL AM 10/23/2021 5:13 Results f or AM CDT this procedure are in the results section. BASIC METABOLIC PANEL, AM 10/23/2021 5:13 CALCIUM IONIZED AM CDT HEMOGLOBIN A1C Now 10/23/2021 5:13 Results fo r AM CDT this procedure are in the results section. POC GLUCOSE SCREEN Routine 10/23/2021 5:07 Result s for AM CDT this procedure are in the results section. OSCILLATORY PEP Routine 10/23/2021 2:00 AM CDT POC GLUCOSE SCREEN Routine 10/22/2021 11:49 Resul ts for PM CDT this procedure are in the results section. OSCILLATORY PEP Routine 10/22/2021 8:00 PM CDT LOWER RESPIRATORY Now 10/22/2021 5:27 Results for CULTURE W/ GRAM STAIN PM CDT this p rocedure are in the results section. MRSA SCREENING CULTURE Now 10/22/2021 5:27 Re sults for PM CDT this procedure are in the results section. POC GLUCOSE SCREEN Routine 10/22/2021 5:19 Result s for PM CDT this procedure are in the results section. MANUAL DIFFERENTIAL Routine 10/22/2021 2:38 Resul ts for PM CDT this procedure are in the results section. Results CBC Routine 10/22/2021 2:38 Results for PM CDT this procedure are in the results section. COMPLETE BLOOD COUNT W/ Routine 10/22/2021 2:38 DIFFERENTIAL PM CDT OSCILLATORY PEP Routine 10/22/2021 2:00 PM CDT POC GLUCOSE SCREEN Routine 10/22/2021 1:11 Result s for PM CDT this procedure are in the results section. XR CHEST 1 VW Routine 10/22/2021 10:05 Results fo r AM CDT this procedure are in the results section. OSCILLATORY PEP Routine 10/22/2021 8:00 AM CDT POC GLUCOSE SCREEN Routine 10/22/2021 5:37 Result s for AM CDT this procedure are in the results section. CALCIUM IONIZED, VENOUS AM 10/22/2021 3:56 R esults for AM CDT this procedure are in the results section. .GLOMERULAR FILTRATION AM 10/22/2021 3:56 Re sults for RATE AM CDT this procedure are in the results section. SERUM CREATININE AM 10/22/2021 3:56 Results for AM CDT this procedure are in the results section. ELECTROLYTE PANEL AM 10/22/2021 3:56 Results for AM CDT this procedure are in the results section. BLOOD UREA NITROGEN AM 10/22/2021 3:56 Resul ts for AM CDT this procedure are in the results section. GLUCOSE LEVEL AM 10/22/2021 3:56 Results for AM CDT this procedure are in the results section. MANUAL DIFFERENTIAL Routine 10/22/2021 3:56 Resul ts for AM CDT this procedure are in the results section. Results CBC Routine 10/22/2021 3:56 Results for AM CDT this procedure are in the results section. COMPLETE BLOOD COUNT W/ Routine 10/22/2021 3:56 DIFFERENTIAL AM CDT PHOSPHORUS LEVEL AM 10/22/2021 3:56 Results for AM CDT this procedure are in the results section. MAGNESIUM LEVEL AM 10/22/2021 3:56 Results f or AM CDT this procedure are in the results section. BASIC METABOLIC PANEL, AM 10/22/2021 3:56 CALCIUM IONIZED AM CDT OSCILLATORY PEP Routine 10/22/2021 2:00 AM CDT POC GLUCOSE SCREEN Routine 10/21/2021 11:54 Resul ts for PM CDT this procedure are in the results section. POC GLUCOSE SCREEN Routine 10/21/2021 11:41 Resul ts for PM CDT this procedure are in the results section. OSCILLATORY PEP Routine 10/21/2021 8:00 PM CDT POC GLUCOSE SCREEN Routine 10/21/2021 5:54 Result s for PM CDT this procedure are in the results section. MANUAL DIFFERENTIAL Routine 10/21/2021 4:31 Resul ts for PM CDT this procedure are in the results section. Results CBC Routine 10/21/2021 4:31 Results for PM CDT this procedure are in the results section. COMPLETE BLOOD COUNT W/ Routine 10/21/2021 4:31 DIFFERENTIAL PM CDT OSCILLATORY PEP Routine 10/21/2021 2:00 PM CDT POC GLUCOSE SCREEN Routine 10/21/2021 11:55 Resul ts for AM CDT this procedure are in the results section. ARTERIAL BLOOD GAS Routine 10/21/2021 11:54 Resul ts for AM CDT this procedure are in the results section. PETCT SUBSEQUENT Routine 10/21/2021 8:59 Results for TREATMENT STRATEGY AM CDT this proc edure are in the results section. OSCILLATORY PEP Routine 10/21/2021 8:00 AM CDT POC GLUCOSE SCREEN Routine 10/21/2021 6:09 Result s for AM CDT this procedure are in the results section. OSCILLATORY PEP Routine 10/21/2021 5:25 AM CDT OSCILLATORY PEP Routine 10/21/2021 5:25 AM CDT OSCILLATORY PEP Routine 10/21/2021 5:25 AM CDT CLOT EXPIRATION DATE Routine 10/21/2021 4:04 Resu lts for AM CDT this procedure are in the results section. TMP INTERPRETATION Routine 10/21/2021 4:04 Result s for ANTIBODY SCREEN AM CDT this procedu re NEGATIVE are in the results section. ABORH MANUAL Routine 10/21/2021 4:04 Results for AM CDT this procedure are in the results section. CALCIUM IONIZED, VENOUS AM 10/21/2021 4:04 R esults for AM CDT this procedure are in the results section. .GLOMERULAR FILTRATION AM 10/21/2021 4:04 Re sults for RATE AM CDT this procedure are in the results section. SERUM CREATININE AM 10/21/2021 4:04 Results for AM CDT this procedure are in the results section. ELECTROLYTE PANEL AM 10/21/2021 4:04 Results for AM CDT this procedure are in the results section. BLOOD UREA NITROGEN AM 10/21/2021 4:04 Resul ts for AM CDT this procedure are in the results section. GLUCOSE LEVEL AM 10/21/2021 4:04 Results for AM CDT this procedure are in the results section. MANUAL DIFFERENTIAL Routine 10/21/2021 4:04 Resul ts for AM CDT this procedure are in the results section. Results CBC Routine 10/21/2021 4:04 Results for AM CDT this procedure are in the results section. ANTIBODY SCREEN Routine 10/21/2021 4:04 Results f or AM CDT this procedure are in the results section. COMPLETE BLOOD COUNT W/ Routine 10/21/2021 4:04 DIFFERENTIAL AM CDT PHOSPHORUS LEVEL AM 10/21/2021 4:04 Results for AM CDT this procedure are in the results section. MAGNESIUM LEVEL AM 10/21/2021 4:04 Results f or AM CDT this procedure are in the results section. BASIC METABOLIC PANEL, AM 10/21/2021 4:04 CALCIUM IONIZED AM CDT TYPE AND SCREEN Routine 10/21/2021 4:[address] SOFT TISSUE NECK W Routine 10/21/2021 2:22 Res ults for CONTRAST AM CDT this procedure are in the results section. POC GLUCOSE SCREEN Routine 10/21/2021 12:36 Resul ts for AM CDT this procedure are in the results section. 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 XR CHEST 2 VW POST Routine 10/20/2021 8:56 Result s for IMPLANT PM CDT this procedure are in the results section. INSERT VASCULAR ACCESS Routine 10/20/2021 7:45 Encounter for R esults for DEVICE PM CDT adjustment and this procedur e management of are in the vascular access results device section. POC GLUCOSE SCREEN Routine 10/20/2021 6:19 Result s for PM CDT this procedure are in the results section. VASCULAR ACCESS Routine 10/20/2021 4:26 Results f or ULTRASOUND PM CDT this procedure are in the results section. MANUAL DIFFERENTIAL STAT 10/20/2021 3:04 Resul ts for PM CDT this procedure are in the results section. Results CBC STAT 10/20/2021 3:04 Results for PM CDT this procedure are in the results section. COMPLETE BLOOD COUNT W/ Routine 10/20/2021 3:04 DIFFERENTIAL PM CDT TMP EXCEPTION Routine 10/20/2021 2:36 Results for PM CDT this procedure are in the results section. XR CHEST 1 VW Routine 10/20/2021 2:32 Results for PM CDT this procedure are in the results section. PRBC PRODUCT READY FOR Routine 10/20/2021 1:00 Re sults for NETWORK ANNOUNCER PM CDT this procedure are in the results section. PREPARE RBC Routine 10/20/2021 1:00 Results for PM CDT this procedure are in the results section. POC GLUCOSE SCREEN Routine 10/20/2021 12:04 Resul ts for PM CDT this procedure are in the results section. POC GLUCOSE SCREEN Routine 10/20/2021 5:27 Result s for AM CDT this procedure are in the results section. CALCIUM IONIZED, VENOUS AM 10/20/2021 1:06 R esults for AM CDT this procedure are in the results section. FRACTIONATED BILIRUBIN AM 10/20/2021 1:06 Re sults for AM CDT this procedure are in the results section. TOTAL PROTEIN AM 10/20/2021 1:06 Results for AM CDT this procedure are in the results section. ASPARTATE AM 10/20/2021 1:06 Results for AMINOTRANSFERASE AM CDT this proced ure are in the results section. ALANINE AM 10/20/2021 1:06 Results for AMINOTRANSFERASE AM CDT this proced ure are in the results section. ALKALINE PHOSPHATASE AM 10/20/2021 1:06 Resu lts for AM CDT this procedure are in the results section. ALBUMIN LEVEL AM 10/20/2021 1:06 Results for AM CDT this procedure are in the results section. .GLOMERULAR FILTRATION AM 10/20/2021 1:06 Re sults for RATE AM CDT this procedure are in the results section. SERUM CREATININE AM 10/20/2021 1:06 Results for AM CDT this procedure are in the results section. ELECTROLYTE PANEL AM 10/20/2021 1:06 Results for AM CDT this procedure are in the results section. BLOOD UREA NITROGEN AM 10/20/2021 1:06 Resul ts for AM CDT this procedure are in the results section. GLUCOSE LEVEL AM 10/20/2021 1:06 Results for AM CDT this procedure are in the results section. MANUAL DIFFERENTIAL STAT 10/20/2021 1:06 Resul ts for AM CDT this procedure are in the results section. Results CBC STAT 10/20/2021 1:06 Results for AM CDT this procedure are in the results section. COMPLETE BLOOD COUNT W/ Routine 10/20/2021 1:06 DIFFERENTIAL AM CDT HEPATIC FUNCTION PANEL AM 10/20/2021 1:06 AM CDT PHOSPHORUS LEVEL AM 10/20/2021 1:06 Results for AM CDT this procedure are in the results section. MAGNESIUM LEVEL AM 10/20/2021 1:06 Results f or AM CDT this procedure are in the results section. BASIC METABOLIC PANEL, AM 10/20/2021 1:06 CALCIUM IONIZED AM CDT POC GLUCOSE SCREEN Routine 10/19/2021 11:51 Resul ts for PM CDT this procedure are in the results section. OSCILLATORY PEP Routine 10/19/2021 8:00 PM CDT POC GLUCOSE SCREEN Routine 10/19/2021 5:35 Result s for PM CDT this procedure are in the results section. MANUAL DIFFERENTIAL STAT 10/19/2021 2:53 Resul ts for PM CDT this procedure are in the results section. Results CBC STAT 10/19/2021 2:53 Results for PM CDT this procedure are in the results section. COMPLETE BLOOD COUNT W/ Routine 10/19/2021 2:53 DIFFERENTIAL PM CDT OSCILLATORY PEP Routine 10/19/2021 12:00 PM CDT POC GLUCOSE SCREEN Routine 10/19/2021 11:36 Resul ts for AM CDT this procedure are in the results section. OSCILLATORY PEP Routine 10/19/2021 8:00 AM CDT POC GLUCOSE SCREEN Routine 10/19/2021 5:32 Result s for AM CDT this procedure are in the results section. XR CHEST 1 VW PORTABLE Routine 10/19/2021 5:15 Re sults for AM CDT this procedure are in the results section. CALCIUM IONIZED, VENOUS AM 10/19/2021 1:04 R esults for AM CDT this procedure are in the results section. FRACTIONATED BILIRUBIN AM 10/19/2021 1:04 Re sults for AM CDT this procedure are in the results section. TOTAL PROTEIN AM 10/19/2021 1:04 Results for AM CDT this procedure are in the results section. ASPARTATE AM 10/19/2021 1:04 Results for AMINOTRANSFERASE AM CDT this proced ure are in the results section. ALANINE AM 10/19/2021 1:04 Results for AMINOTRANSFERASE AM CDT this proced ure are in the results section. ALKALINE PHOSPHATASE AM 10/19/2021 1:04 Resu lts for AM CDT this procedure are in the results section. ALBUMIN LEVEL AM 10/19/2021 1:04 Results for AM CDT this procedure are in the results section. .GLOMERULAR FILTRATION AM 10/19/2021 1:04 Re sults for RATE AM CDT this procedure are in the results section. SERUM CREATININE AM 10/19/2021 1:04 Results for AM CDT this procedure are in the results section. ELECTROLYTE PANEL AM 10/19/2021 1:04 Results for AM CDT this procedure are in the results section. BLOOD UREA NITROGEN AM 10/19/2021 1:04 Resul ts for AM CDT this procedure are in the results section. GLUCOSE LEVEL AM 10/19/2021 1:04 Results for AM CDT this procedure are in the results section. MANUAL DIFFERENTIAL STAT 10/19/2021 1:04 Resu lts for AM CDT this procedure are in the results section. Results CBC STAT 10/19/2021 1:04 Results for AM CDT this procedure are in the results section. COMPLETE BLOOD COUNT W/ Routine 10/19/2021 1:04 DIFFERENTIAL AM CDT HEPATIC FUNCTION PANEL AM 10/19/2021 1:04 AM CDT PHOSPHORUS LEVEL AM 10/19/2021 1:04 Results for AM CDT this procedure are in the results section. MAGNESIUM LEVEL AM 10/19/2021 1:04 Results f or AM CDT this procedure are in the results section. BASIC METABOLIC PANEL, AM 10/19/2021 1:04 CALCIUM IONIZED AM CDT POC GLUCOSE SCREEN Routine 10/19/2021 12:02 Resul ts for AM CDT this procedure are in the results section. CT ABDOMEN PELVIS WO STAT 10/18/2021 9:20 Resu lts for CONTRAST PM CDT this procedure are in the results section. OSCILLATORY PEP Routine 10/18/2021 8:00 PM CDT POC GLUCOSE SCREEN Routine 10/18/2021 6:48 Result s for PM CDT this procedure are in the results section. OSCILLATORY PEP Routine 10/18/2021 4:02 PM CDT OSCILLATORY PEP Routine 10/18/2021 4:02 PM CDT OSCILLATORY PEP Routine 10/18/2021 4:02 PM CDT OSCILLATORY PEP Routine 10/18/2021 4:02 PM CDT OSCILLATORY PEP Routine 10/18/2021 4:02 PM CDT CLOT EXPIRATION DATE Now 10/18/2021 3:57 Resu lts for PM CDT this procedure are in the results section. ABORH MANUAL Now 10/18/2021 3:57 Results for PM CDT this procedure are in the results section. CALCIUM IONIZED, VENOUS STAT 10/18/2021 3:57 R esults for PM CDT this procedure are in the results section. LACTIC ACID, VENOUS STAT 10/18/2021 3:57 Resul ts for PM CDT this procedure are in the results section. BASIC METABOLIC PANEL, STAT 10/18/2021 3:57 CALCIUM IONIZED PM CDT VRE CULTURE Now 10/18/2021 3:57 Results for PM CDT this procedure are in the results section. ECHOCARDIOGRAM 2D Routine 10/18/2021 3:16 Results for COMPLETE PM CDT this procedure are in the results section. POC GLUCOSE SCREEN Routine 10/18/2021 1:44 Result s for PM CDT this procedure are in the results section. BLOOD UREA NITROGEN STAT 10/18/2021 1:26 Resul ts for PM CDT this procedure are in the results section. .GLOMERULAR FILTRATION STAT 10/18/2021 1:26 Re sults for RATE PM CDT this procedure are in the results section. SERUM CREATININE STAT 10/18/2021 1:26 Results for PM CDT this procedure are in the results section. ELECTROLYTE PANEL STAT 10/18/2021 1:26 Results for PM CDT this procedure are in the results section. GLUCOSE LEVEL STAT 10/18/2021 1:26 Results for PM CDT this procedure are in the results section. PROTHROMBIN TIME STAT 10/18/2021 1:26 Results for PM CDT this procedure are in the results section. PHOSPHORUS LEVEL STAT 10/18/2021 1:26 Results for PM CDT this procedure are in the results section. MAGNESIUM LEVEL STAT 10/18/2021 1:26 Results f or PM CDT this procedure are in the results section. COMPLETE BLOOD COUNT W/ STAT 10/18/2021 1:26 R esults for INDICES PM CDT this procedure are in the results section. APTT STAT 10/18/2021 1:26 Results for PM CDT this procedure are in the results section. ARTERIAL BLOOD GAS STAT 10/18/2021 1:26 Result s for PM CDT this procedure are in the results section. XR CHEST 1 VW PORTABLE STAT 10/18/2021 1:21 Re sults for PM CDT this procedure are in the results section. POC ARTERIAL BLOOD GAS Routine 10/18/2021 1:19 Re sults for PM CDT this procedure are in the results section. POC ARTERIAL BLOOD GAS Routine 10/18/2021 11:55 R esults for AM CDT this procedure are in the results section. POC CRITICAL Routine 10/18/2021 11:55 Results for AM CDT this procedure are in the results section. POC CRITICAL Routine 10/18/2021 11:55 Results for AM CDT this procedure are in the results section. 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 CLOT EXPIRATION DATE Routine 10/18/2021 7:05 Resu lts for AM CDT this procedure are in the results section. TMP INTERPRETATION Routine 10/18/2021 7:05 Result s for ANTIBODY SCREEN AM CDT this procedu re NEGATIVE are in the results section. ABORH MANUAL Routine 10/18/2021 7:05 Results for AM CDT this procedure are in the results section. MANUAL DIFFERENTIAL AM 10/18/2021 7:05 Resul ts for AM CDT this procedure are in the results section. Results CBC AM 10/18/2021 7:05 Results for AM CDT this procedure are in the results section. CALCIUM IONIZED, VENOUS AM 10/18/2021 7:05 R esults for AM CDT this procedure are in the results section. FRACTIONATED BILIRUBIN AM 10/18/2021 7:05 Re sults for AM CDT this procedure are in the results section. TOTAL PROTEIN AM 10/18/2021 7:05 Results for AM CDT this procedure are in the results section. ASPARTATE AM 10/18/2021 7:05 Results for AMINOTRANSFERASE AM CDT this proced ure are in the results section. ALANINE AM 10/18/2021 7:05 Results for AMINOTRANSFERASE AM CDT this proced ure are in the results section. ALKALINE PHOSPHATASE AM 10/18/2021 7:05 Resu lts for AM CDT this procedure are in the results section. ALBUMIN LEVEL AM 10/18/2021 7:05 Results for AM CDT this procedure are in the results section. .GLOMERULAR FILTRATION AM 10/18/2021 7:05 Re sults for RATE AM CDT this procedure are in the results section. SERUM CREATININE AM 10/18/2021 7:05 Results for AM CDT this procedure are in the results section. ELECTROLYTE PANEL AM 10/18/2021 7:05 Results for AM CDT this procedure are in the results section. BLOOD UREA NITROGEN AM 10/18/2021 7:05 Resul ts for AM CDT this procedure are in the results section. GLUCOSE LEVEL AM 10/18/2021 7:05 Results for AM CDT this procedure are in the results section. ANTIBODY SCREEN Routine 10/18/2021 7:05 Results f or AM CDT this procedure are in the results section. COMPLETE BLOOD COUNT W/ AM 10/18/2021 7:05 DIFFERENTIAL AM CDT HEPATIC FUNCTION PANEL AM 10/18/2021 7:05 AM CDT PHOSPHORUS LEVEL AM 10/18/2021 7:05 Results for AM CDT this procedure are in the results section. MAGNESIUM LEVEL AM 10/18/2021 7:05 Results f or AM CDT this procedure are in the results section. BASIC METABOLIC PANEL, AM 10/18/2021 7:05 CALCIUM IONIZED AM CDT TYPE AND SCREEN Routine 10/18/2021 7:05 AM CDT POC GLUCOSE SCREEN Routine 10/18/2021 5:37 Result s for AM CDT this procedure are in the results section. POC GLUCOSE SCREEN Routine 10/17/2021 11:24 Resul ts for PM CDT this procedure are in the results section. POC GLUCOSE SCREEN Routine 10/17/2021 6:32 Result s for PM CDT this procedure are in the results section. BLOODCULTURE Now 10/17/2021 12:56 Results for PM CDT this procedure are in the results section. POC GLUCOSE SCREEN Routine 10/17/2021 11:14 Resul ts for AM CDT this procedure are in the results section. MANUAL DIFFERENTIAL AM 10/17/2021 6:29 Resul ts for AM CDT this procedure are in the results section. Results CBC AM 10/17/2021 6:29 Results for AM CDT this procedure are in the results section. CALCIUM IONIZED, VENOUS AM 10/17/2021 6:29 R esults for AM CDT this procedure are in the results section. FRACTIONATED BILIRUBIN AM 10/17/2021 6:29 Re sults for AM CDT this procedure are in the results section. TOTAL PROTEIN AM 10/17/2021 6:29 Results for AM CDT this procedure are in the results section. ASPARTATE AM 10/17/2021 6:29 Results for AMINOTRANSFERASE AM CDT this proced ure are in the results section. ALANINE AM 10/17/2021 6:29 Results for AMINOTRANSFERASE AM CDT this proced ure are in the results section. ALKALINE PHOSPHATASE AM 10/17/2021 6:29 Resu lts for AM CDT this procedure are in the results section. ALBUMIN LEVEL AM 10/17/2021 6:29 Results for AM CDT this procedure are in the results section. .GLOMERULAR FILTRATION AM 10/17/2021 6:29 Re sults for RATE AM CDT this procedure are in the results section. SERUM CREATININE AM 10/17/2021 6:29 Results for AM CDT this procedure are in the results section. ELECTROLYTE PANEL AM 10/17/2021 6:29 Results for AM CDT this procedure are in the results section. BLOOD UREA NITROGEN AM 10/17/2021 6:29 Resul ts for AM CDT this procedure are in the results section. GLUCOSE LEVEL AM 10/17/2021 6:29 Results for AM CDT this procedure are in the results section. COMPLETE BLOOD COUNT W/ AM 10/17/2021 6:29 DIFFERENTIAL AM CDT HEPATIC FUNCTION PANEL AM 10/17/2021 6:29 AM CDT APTT AM 10/17/2021 6:29 Results for AM CDT this procedure are in the results section. PROTHROMBIN TIME AM 10/17/2021 6:29 Results for AM CDT this procedure are in the results section. PHOSPHORUS LEVEL AM 10/17/2021 6:29 Results for AM CDT this procedure are in the results section. MAGNESIUM LEVEL AM 10/17/2021 6:29 Results f or AM CDT this procedure are in the results section. BASIC METABOLIC PANEL, AM 10/17/2021 6:29 CALCIUM IONIZED AM CDT POC GLUCOSE SCREEN Routine 10/17/2021 4:56 Result s for AM CDT this procedure are in the results section. POC GLUCOSE SCREEN Routine 10/17/2021 12:05 Resul ts for AM CDT this procedure are in the results section. OSCILLATORY PEP Routine 10/16/2021 8:00 PM CDT POC GLUCOSE SCREEN Routine 10/16/2021 5:07 Result s for PM CDT this procedure are in the results section. OSCILLATORY PEP Routine 10/16/2021 4:00 PM CDT OSCILLATORY PEP Routine 10/16/2021 12:00 PM CDT XR CHEST 1 VW PORTABLE Routine 10/16/2021 11:49 R esults for AM CDT this procedure are in the results section. POC GLUCOSE SCREEN Routine 10/16/2021 11:31 Resul ts for AM CDT this procedure are in the results section. OSCILLATORY PEP Routine 10/16/2021 8:00 AM CDT POC GLUCOSE SCREEN Routine 10/16/2021 5:40 Result s for AM CDT this procedure are in the results section. CALCIUM IONIZED, VENOUS AM 10/16/2021 1:29 R esults for AM CDT this procedure are in the results section. FRACTIONATED BILIRUBIN AM 10/16/2021 1:29 Re sults for AM CDT this procedure are in the results section. TOTAL PROTEIN AM 10/16/2021 1:29 Results for AM CDT this procedure are in the results section. ASPARTATE AM 10/16/2021 1:29 Results for AMINOTRANSFERASE AM CDT this proced ure are in the results section. ALANINE AM 10/16/2021 1:29 Results for AMINOTRANSFERASE AM CDT this proced ure are in the results section. ALKALINE PHOSPHATASE AM 10/16/2021 1:29 Resu lts for AM CDT this procedure are in the results section. ALBUMIN LEVEL AM 10/16/2021 1:29 Results for AM CDT this procedure are in the results section. .GLOMERULAR FILTRATION AM 10/16/2021 1:29 Re sults for RATE AM CDT this procedure are in the results section. SERUM CREATININE AM 10/16/2021 1:29 Results for AM CDT this procedure are in the results section. ELECTROLYTE PANEL AM 10/16/2021 1:29 Results for AM CDT this procedure are in the results section. BLOOD UREA NITROGEN AM 10/16/2021 1:29 Resul ts for AM CDT this procedure are in the results section. GLUCOSE LEVEL AM 10/16/2021 1:29 Results for AM CDT this procedure are in the results section. MANUAL DIFFERENTIAL Routine 10/16/2021 1:29 Resul ts for AM CDT this procedure are in the results section. Results CBC Routine 10/16/2021 1:29 Results for AM CDT this procedure are in the results section. COMPLETE BLOOD COUNT W/ Routine 10/16/2021 1:29 DIFFERENTIAL AM CDT HEPATIC FUNCTION PANEL AM 10/16/2021 1:29 AM CDT APTT AM 10/16/2021 1:29 Results for AM CDT this procedure are in the results section. PROTHROMBIN TIME AM 10/16/2021 1:29 Results for AM CDT this procedure are in the results section. PHOSPHORUS LEVEL AM 10/16/2021 1:29 Results for AM CDT this procedure are in the results section. MAGNESIUM LEVEL AM 10/16/2021 1:29 Results f or AM CDT this procedure are in the results section. BASIC METABOLIC PANEL, AM 10/16/2021 1:29 CALCIUM IONIZED AM CDT POC GLUCOSE SCREEN Routine 10/15/2021 11:18 Resul ts for PM CDT this procedure are in the results section. URINE CULTURE STAT 10/15/2021 8:24 Results for PM CDT this procedure are in the results section. URINALYSIS MICROSCOPIC STAT 10/15/2021 8:23 Re sults for PM CDT this procedure are in the results section. URINALYSIS WITH STAT 10/15/2021 8:23 Results f or MICROSCOPIC IF PM CDT this procedur e INDICATED are in the results section. POC GLUCOSE SCREEN Routine 10/15/2021 5:34 Result s for PM CDT this procedure are in the results section. OSCILLATORY PEP Routine 10/15/2021 4:00 PM CDT MANUAL DIFFERENTIAL Routine 10/15/2021 2:55 Resul ts for PM CDT this procedure are in the results section. Results CBC Routine 10/15/2021 2:55 Results for PM CDT this procedure are in the results section. COMPLETE BLOOD COUNT W/ Routine 10/15/2021 2:55 DIFFERENTIAL PM CDT CALCIUM IONIZED, VENOUS AM 10/15/2021 2:55 R esults for PM CDT this procedure are in the results section. .GLOMERULAR FILTRATION AM 10/15/2021 2:55 Re sults for RATE PM CDT this procedure are in the results section. SERUM CREATININE AM 10/15/2021 2:55 Results for PM CDT this procedure are in the results section. ELECTROLYTE PANEL AM 10/15/2021 2:55 Results for PM CDT this procedure are in the results section. BLOOD UREA NITROGEN AM 10/15/2021 2:55 Resul ts for PM CDT this procedure are in the results section. GLUCOSE LEVEL AM 10/15/2021 2:55 Results for PM CDT this procedure are in the results section. PHOSPHORUS LEVEL AM 10/15/2021 2:55 Results for PM CDT this procedure are in the results section. MAGNESIUM LEVEL AM 10/15/2021 2:55 Results f or PM CDT this procedure are in the results section. BASIC METABOLIC PANEL, AM 10/15/2021 2:55 CALCIUM IONIZED PM CDT POC GLUCOSE SCREEN Routine 10/15/2021 12:00 Resul ts for PM CDT this procedure are in the results section. COVID-19 (SARS-COV-2) Now 10/15/2021 9:08 Res ults for ASYMPTOMATIC-LT AM CDT this procedu re are in the results section. TRANSFUSE RED BLOOD Routine 10/15/2021 9:02 CELLS AM CDT OSCILLATORY PEP Routine 10/15/2021 8:00 AM CDT VRE CULTURE Now 10/15/2021 7:52 Results for AM CDT this procedure are in the results section. TMP EXCEPTION STAT 10/15/2021 7:44 Results for AM CDT this procedure are in the results section. POC GLUCOSE SCREEN Routine 10/15/2021 6:07 Result s for AM CDT this procedure are in the results section. PRBC PRODUCT READY FOR Routine 10/15/2021 2:55 Re sults for NETWORK ANNOUNCER AM CDT this procedure are in the results section. PREPARE RBC Routine 10/15/2021 2:55 Results for AM CDT this procedure are in the results section. MANUAL DIFFERENTIAL STAT 10/15/2021 2:21 Resul ts for AM CDT this procedure are in the results section. Results CBC STAT 10/15/2021 2:21 Results for AM CDT this procedure are in the results section. COMPLETE BLOOD COUNT W/ STAT 10/15/2021 2:21 DIFFERENTIAL AM CDT TMP CROSSMATCH Now 10/15/2021 2:07 Results fo r INTERPRETATION AM CDT this procedur e are in the results section. TMP INTERPRETATION Routine 10/15/2021 2:07 Result s for ANTIBODY SCREEN AM CDT this procedu re NEGATIVE are in the results section. CLOT EXPIRATION DATE Routine 10/15/2021 2:07 Resu lts for AM CDT this procedure are in the results section. ANTIBODY SCREEN Now 10/15/2021 2:07 Results f or AM CDT this procedure are in the results section. ABORH Now 10/15/2021 2:07 Results for AM CDT this procedure are in the results section. CALCIUM IONIZED, VENOUS STAT 10/15/2021 2:07 R esults for AM CDT this procedure are in the results section. .GLOMERULAR FILTRATION STAT 10/15/2021 2:07 Re sults for RATE AM CDT this procedure are in the results section. SERUM CREATININE STAT 10/15/2021 2:07 Results for AM CDT this procedure are in the results section. ELECTROLYTE PANEL STAT 10/15/2021 2:07 Results for AM CDT this procedure are in the results section. BLOOD UREA NITROGEN STAT 10/15/2021 2:07 Resul ts for AM CDT this procedure are in the results section. GLUCOSE LEVEL STAT 10/15/2021 2:07 Results for AM CDT this procedure are in the results section. FIBRINOGEN ACTIVITY STAT 10/15/2021 2:07 Resul ts for AM CDT this procedure are in the results section. APTT STAT 10/15/2021 2:07 Results for AM CDT this procedure are in the results section. PROTHROMBIN TIME STAT 10/15/2021 2:07 Results for AM CDT this procedure are in the results section. LACTIC ACID, VENOUS STAT 10/15/2021 2:07 Resul ts for AM CDT this procedure are in the results section. NT PRO BNP Now 10/15/2021 2:07 Results for AM CDT this procedure are in the results section. CARDIAC PANEL Timed Study 10/15/2021 2:07 Results for AM CDT this procedure are in the results section. LIPASE LEVEL STAT 10/15/2021 2:07 Results for AM CDT this procedure are in the results section. AMYLASE LEVEL STAT 10/15/2021 2:07 Results for AM CDT this procedure are in the results section. TOTAL T3 STAT 10/15/2021 2:07 Results for AM CDT this procedure are in the results section. FREE THYROXINE STAT 10/15/2021 2:07 Results fo r AM CDT this procedure are in the results section. THYROID STIMULATING STAT 10/15/2021 2:07 Resul ts for HORMONE AM CDT this procedure are in the results section. ARTERIAL BLOOD GAS STAT 10/15/2021 2:07 Result s for AM CDT this procedure are in the results section. PHOSPHORUS LEVEL STAT 10/15/2021 2:07 Results for AM CDT this procedure are in the results section. ALBUMIN LEVEL STAT 10/15/2021 2:07 Results for AM CDT this procedure are in the results section. ALKALINE PHOSPHATASE STAT 10/15/2021 2:07 Resu lts for AM CDT this procedure are in the results section. LACTATE DEHYDROGENASE STAT 10/15/2021 2:07 Res ults for AM CDT this procedure are in the results section. FRACTIONATED BILIRUBIN STAT 10/15/2021 2:07 Re sults for AM CDT this procedure are in the results section. ALANINE STAT 10/15/2021 2:07 Results for AMINOTRANSFERASE AM CDT this proced ure are in the results section. ASPARTATE STAT 10/15/2021 2:07 Results for AMINOTRANSFERASE AM CDT this proced ure are in the results section. MAGNESIUM LEVEL STAT 10/15/2021 2:07 Results f or AM CDT this procedure are in the results section. BASIC METABOLIC PANEL, STAT 10/15/2021 2:07 CALCIUM IONIZED AM CDT TYPE AND SCREEN Now 10/15/2021 2:07 AM CDT BLOODCULTURE Now 10/15/2021 2:07 Results for AM CDT this procedure are in the results section. XR CHEST 1 VW STAT 10/15/2021 1:26 Results for AM CDT this procedure are in the results section. OSCILLATORY PEP Routine 10/15/2021 12:45 AM CDT OSCILLATORY PEP Routine 10/15/2021 12:45 AM CDT OSCILLATORY PEP Routine 10/15/2021 12:45 AM CDT OSCILLATORY PEP Routine 10/15/2021 12:45 AM CDT POC GLUCOSE SCREEN Routine 10/15/2021 12:42 Resul ts for AM CDT this procedure are in the results section. EKG, 12-LEAD (PORTABLE) Routine 10/15/2021 OSI CHEST Routine 10/14/2021 9:45 Cancer Results for AM CDT this procedure are in the results section. FL MODIFIED BARIUM Routine 09/23/2021 10:46 Dysphagia, Resul ts for SWALLOW W SPEECH AM CDT oropharyngeal phase this procedure are in the results section. 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 CT SOFT TISSUE NECK W Routine 09/20/2021 4:26 Primary squamous Results for CONTRAST PM CDT cell carcinoma [...] results section. MANUAL DIFFERENTIAL AM 08/31/2021 4:26 Resul ts for AM CDT this procedure are in the results section. Results CBC AM 08/31/2021 4:26 Results for AM CDT this procedure are in the results section. CALCIUM LEVEL TOTAL AM 08/31/2021 4:26 Resul ts for AM CDT this procedure are in the results section. .GLOMERULAR FILTRATION AM 08/31/2021 4:26 Re sults for RATE AM CDT this procedure are in the results section. SERUM CREATININE AM 08/31/2021 4:26 Results for AM CDT this procedure are in the results section. ELECTROLYTE PANEL AM 08/31/2021 4:26 Results for AM CDT this procedure are in the results section. BLOOD UREA NITROGEN AM 08/31/2021 4:26 Resul ts for AM CDT this procedure are in the results section. GLUCOSE LEVEL AM 08/31/2021 4:26 Results for AM CDT this procedure are in the results section. COMPLETE BLOOD COUNT W/ AM 08/31/2021 4:26 DIFFERENTIAL AM CDT PHOSPHORUS LEVEL AM 08/31/2021 4:26 Results for AM CDT this procedure are in the results section. MAGNESIUM LEVEL AM 08/31/2021 4:26 Results f or AM CDT this procedure are in the results section. BASIC METABOLIC PANEL, AM 08/31/2021 4:26 CALCIUM TOTAL AM CDT POC GLUCOSE SCREEN Routine 08/30/2021 10:06 Resul ts for PM CDT this procedure are in the results section. POC GLUCOSE SCREEN Routine 08/30/2021 4:50 Result s for PM CDT this procedure are in the results section. FL MODIFIED BARIUM Routine 08/30/2021 3:15 Result s for SWALLOW W SPEECH PM CDT this proced ure are in the results section. POC GLUCOSE SCREEN Routine 08/30/2021 12:35 Resul ts for PM CDT this procedure are in the results section. POC GLUCOSE SCREEN Routine 08/30/2021 7:52 Result s for AM CDT this procedure are in the results section. MANUAL DIFFERENTIAL AM 08/30/2021 4:36 Resul ts for AM CDT this procedure are in the results section. Results CBC AM 08/30/2021 4:36 Results for AM CDT this procedure are in the results section. CALCIUM LEVEL TOTAL AM 08/30/2021 4:36 Resul ts for AM CDT this procedure are in the results section. .GLOMERULAR FILTRATION AM 08/30/2021 4:36 Re sults for RATE AM CDT this procedure are in the results section. SERUM CREATININE AM 08/30/2021 4:36 Results for AM CDT this procedure are in the results section. ELECTROLYTE PANEL AM 08/30/2021 4:36 Results for AM CDT this procedure are in the results section. BLOOD UREA NITROGEN AM 08/30/2021 4:36 Resul ts for AM CDT this procedure are in the results section. GLUCOSE LEVEL AM 08/30/2021 4:36 Results for AM CDT this procedure are in the results section. COMPLETE BLOOD COUNT W/ AM 08/30/2021 4:36 DIFFERENTIAL AM CDT PHOSPHORUS LEVEL AM 08/30/2021 4:36 Results for AM CDT this procedure are in the results section. MAGNESIUM LEVEL AM 08/30/2021 4:36 Results f or AM CDT this procedure are in the results section. BASIC METABOLIC PANEL, AM 08/30/2021 4:36 CALCIUM TOTAL AM CDT POC GLUCOSE SCREEN Routine 08/29/2021 10:07 Resul ts for PM CDT this procedure are in the results section. XR ABDOMEN 1 VW STAT 08/29/2021 6:11 Results f or PORTABLE PM CDT this procedure are in the results section. POC GLUCOSE SCREEN Routine 08/29/2021 5:46 Result s for PM CDT this procedure are in the results section. POC GLUCOSE SCREEN Routine 08/29/2021 4:32 Result s for PM CDT this procedure are in the results section. PATHOLOGY BIOPSY Routine 08/29/2021 2:14 Iron deficiency Resul ts for INTERPRETATION PM CDT anemia, not this procedur e otherwise specified are in t he results section. DIAGNOSTIC FLEXIBLE 08/29/2021 1:46 Iron deficiency COLONOSCOPY PROXIMAL TO PM CDT anemia, not SPLENIC FLEXURE otherwise specified DIAGNOSTIC UPPER 08/29/2021 1:46 Iron deficiency GASTROINTESTINAL PM CDT anemia, not ENDOSCOPY otherwise specified POC GLUCOSE SCREEN Routine 08/29/2021 1:22 Result s for PM CDT this procedure are in the results section. POC GLUCOSE SCREEN Routine 08/29/2021 10:21 Resul ts for AM CDT this procedure are in the results section. MANUAL DIFFERENTIAL AM 08/29/2021 5:31 Resul ts for AM CDT this procedure are in the results section. Results CBC AM 08/29/2021 5:31 Results for AM CDT this procedure are in the results section. CALCIUM LEVEL TOTAL AM 08/29/2021 5:31 Resul ts for AM CDT this procedure are in the results section. .GLOMERULAR FILTRATION AM 08/29/2021 5:31 Re sults for RATE AM CDT this procedure are in the results section. SERUM CREATININE AM 08/29/2021 5:31 Results for AM CDT this procedure are in the results section. ELECTROLYTE PANEL AM 08/29/2021 5:31 Results for AM CDT this procedure are in the results section. BLOOD UREA NITROGEN AM 08/29/2021 5:31 Resul ts for AM CDT this procedure are in the results section. GLUCOSE LEVEL AM 08/29/2021 5:31 Results for AM CDT this procedure are in the results section. PROTHROMBIN TIME AM 08/29/2021 5:31 Results for AM CDT this procedure are in the results section. COMPLETE BLOOD COUNT W/ AM 08/29/2021 5:31 DIFFERENTIAL AM CDT PHOSPHORUS LEVEL AM 08/29/2021 5:31 Results for AM CDT this procedure are in the results section. MAGNESIUM LEVEL AM 08/29/2021 5:31 Results f or AM CDT this procedure are in the results section. BASIC METABOLIC PANEL, AM 08/29/2021 5:31 CALCIUM TOTAL AM CDT POC GLUCOSE SCREEN Routine 08/28/2021 9:15 Result s for PM CDT this procedure are in the results section. POC GLUCOSE SCREEN Routine 08/28/2021 4:24 Result s for PM CDT this procedure are in the results section. POC GLUCOSE SCREEN Routine 08/28/2021 8:49 Result s for AM CDT this procedure are in the results section. MANUAL DIFFERENTIAL AM 08/28/2021 3:13 Resul ts for AM CDT this procedure are in the results section. Results CBC AM 08/28/2021 3:13 Results for AM CDT this procedure are in the results section. CALCIUM LEVEL TOTAL AM 08/28/2021 3:13 Resul ts for AM CDT this procedure are in the results section. .GLOMERULAR FILTRATION AM 08/28/2021 3:13 Re sults for RATE AM CDT this procedure are in the results section. SERUM CREATININE AM 08/28/2021 3:13 Results for AM CDT this procedure are in the results section. ELECTROLYTE PANEL AM 08/28/2021 3:13 Results for AM CDT this procedure are in the results section. BLOOD UREA NITROGEN AM 08/28/2021 3:13 Resul ts for AM CDT this procedure are in the results section. GLUCOSE LEVEL AM 08/28/2021 3:13 Results for AM CDT this procedure are in the results section. COMPLETE BLOOD COUNT W/ AM 08/28/2021 3:13 DIFFERENTIAL AM CDT PHOSPHORUS LEVEL AM 08/28/2021 3:13 Results for AM CDT this procedure are in the results section. MAGNESIUM LEVEL AM 08/28/2021 3:13 Results f or AM CDT this procedure are in the results section. BASIC METABOLIC PANEL, AM 08/28/2021 3:13 CALCIUM TOTAL AM CDT POC GLUCOSE SCREEN Routine 08/27/2021 10:20 Resul ts for PM CDT this procedure are in the results section. POC GLUCOSE SCREEN Routine 08/27/2021 1:30 Result s for PM CDT this procedure are in the results section. POC GLUCOSE SCREEN Routine 08/27/2021 8:47 Result s for AM CDT this procedure are in the results section. MANUAL DIFFERENTIAL AM 08/27/2021 4:47 Resul ts for AM CDT this procedure are in the results section. Results CBC AM 08/27/2021 4:47 Results for AM CDT this procedure are in the results section. CALCIUM LEVEL TOTAL AM 08/27/2021 4:47 Resul ts for AM CDT this procedure are in the results section. .GLOMERULAR FILTRATION AM 08/27/2021 4:47 Re sults for RATE AM CDT this procedure are in the results section. SERUM CREATININE AM 08/27/2021 4:47 Results for AM CDT this procedure are in the results section. ELECTROLYTE PANEL AM 08/27/2021 4:47 Results for AM CDT this procedure are in the results section. BLOOD UREA NITROGEN AM 08/27/2021 4:47 Resul ts for AM CDT this procedure are in the results section. GLUCOSE LEVEL AM 08/27/2021 4:47 Results for AM CDT this procedure are in the results section. COMPLETE BLOOD COUNT W/ AM 08/27/2021 4:47 DIFFERENTIAL AM CDT PHOSPHORUS LEVEL AM 08/27/2021 4:47 Results for AM CDT this procedure are in the results section. MAGNESIUM LEVEL AM 08/27/2021 4:47 Results f or AM CDT this procedure are in the results section. BASIC METABOLIC PANEL, AM 08/27/2021 4:47 CALCIUM TOTAL AM CDT POC GLUCOSE SCREEN Routine 08/26/2021 8:25 Result s for PM CDT this procedure are in the results section. POC GLUCOSE SCREEN Routine 08/26/2021 4:49 Result s for PM CDT this procedure are in the results section. POC GLUCOSE SCREEN Routine 08/26/2021 12:17 Resul ts for PM CDT this procedure are in the results section. POC GLUCOSE SCREEN Routine 08/26/2021 8:44 Result s for AM CDT this procedure are in the results section. MANUAL DIFFERENTIAL AM 08/26/2021 8:10 Resul ts for AM CDT this procedure are in the results section. Results CBC AM 08/26/2021 8:10 Results for AM CDT this procedure are in the results section. CALCIUM LEVEL TOTAL AM 08/26/2021 8:10 Resul ts for AM CDT this procedure are in the results section. .GLOMERULAR FILTRATION AM 08/26/2021 8:10 Re sults for RATE AM CDT this procedure are in the results section. SERUM CREATININE AM 08/26/2021 8:10 Results for AM CDT this procedure are in the results section. ELECTROLYTE PANEL AM 08/26/2021 8:10 Results for AM CDT this procedure are in the results section. BLOOD UREA NITROGEN AM 08/26/2021 8:10 Resul ts for AM CDT this procedure are in the results section. GLUCOSE LEVEL AM 08/26/2021 8:10 Results for AM CDT this procedure are in the results section. COMPLETE BLOOD COUNT W/ AM 08/26/2021 8:10 DIFFERENTIAL AM CDT PHOSPHORUS LEVEL AM 08/26/2021 8:10 Results for AM CDT this procedure are in the results section. MAGNESIUM LEVEL AM 08/26/2021 8:10 Results f or AM CDT this procedure are in the results section. BASIC METABOLIC PANEL, AM 08/26/2021 8:10 CALCIUM TOTAL AM CDT TRANSFUSE RED BLOOD Routine 08/26/2021 4:17 CELLS AM CDT TRANSFUSE RED BLOOD Routine 08/26/2021 12:58 CELLS AM CDT POC GLUCOSE SCREEN Routine 08/25/2021 11:03 Resul ts for PM CDT this procedure are in the results section. CONFIRM ABORH TYPE Now 08/25/2021 6:19 Result s for PM CDT this procedure are in the results section. TMP CROSSMATCH Now 08/25/2021 6:15 Results fo r INTERPRETATION PM CDT this procedur e are in the results section. TMP INTERPRETATION Routine 08/25/2021 6:15 Result s for ANTIBODY SCREEN PM CDT this procedu re NEGATIVE are in the results section. CLOT EXPIRATION DATE Routine 08/25/2021 6:15 Resu lts for PM CDT this procedure are in the results section. FRACTIONATED BILIRUBIN Now 08/25/2021 6:15 Re sults for PM CDT this procedure are in the results section. TOTAL PROTEIN Now 08/25/2021 6:15 Results for PM CDT this procedure are in the results section. ASPARTATE Now 08/25/2021 6:15 Results for AMINOTRANSFERASE PM CDT this proced ure are in the results section. ALANINE Now 08/25/2021 6:15 Results for AMINOTRANSFERASE PM CDT this proced ure are in the results section. ALKALINE PHOSPHATASE Now 08/25/2021 6:15 Resu lts for PM CDT this procedure are in the results section. ALBUMIN LEVEL Now 08/25/2021 6:15 Results for PM CDT this procedure are in the results section. CALCIUM LEVEL TOTAL Now 08/25/2021 6:15 Resul ts for PM CDT this procedure are in the results section. .GLOMERULAR FILTRATION Now 08/25/2021 6:15 Re sults for RATE PM CDT this procedure are in the results section. SERUM CREATININE Now 08/25/2021 6:15 Results for PM CDT this procedure are in the results section. ELECTROLYTE PANEL Now 08/25/2021 6:15 Results for PM CDT this procedure are in the results section. ANTIBODY SCREEN Now 08/25/2021 6:15 Results f or PM CDT this procedure are in the results section. BLOOD UREA NITROGEN Now 08/25/2021 6:15 Resul ts for PM CDT this procedure are in the results section. GLUCOSE LEVEL Now 08/25/2021 6:15 Results for PM [...] section. MAGNESIUM LEVEL Now 08/25/2021 6:15 Results f or PM CDT this procedure are in the results section. COMPREHENSIVE METABOLIC Now 08/25/2021 6:15 PANEL PM CDT TYPE AND SCREEN Now 08/25/2021 6:15 PM CDT COVID-19 (SARS-COV-2) Now 08/25/2021 6:15 Res ults for ASYMPTOMATIC-LT PM CDT this procedu re are in the results section. PRBC PRODUCT READY FOR Routine 08/25/2021 4:47 R esults for NETWORK ANNOUNCER PM CDT this procedure are in the [...] section. COVID-19 (SARS-COV-2) Routine 08/20/2021 2:44 Suspected COVID- 19 Results for PCR-ASYMPTOMATIC MC PM CDT this pro cedure are in the results section. POC GLUCOSE SCREEN Routine 07/12/2021 5:42 Result s for PM BARGE MASTER this procedure are in the results section. CALCIUM LEVEL TOTAL Routine 07/12/2021 3:09 Resul ts for PM BARGE MASTER this procedure are in the results section. .GLOMERULAR FILTRATION Routine 07/12/2021 3:09 Re sults for RATE PM BARGE MASTER this procedure are in the results section. SERUM CREATININE Routine 07/12/2021 3:09 Results for PM BARGE MASTER this procedure are in the results section. ELECTROLYTE PANEL Routine 07/12/2021 3:09 Results for PM BARGE MASTER this procedure are in the results section. BLOOD UREA NITROGEN Routine 07/12/2021 3:09 Resul ts for PM BARGE MASTER this procedure are in the results section. GLUCOSE LEVEL Routine 07/12/2021 3:09 Results for PM BARGE MASTER this procedure are in the results section. PHOSPHORUS LEVEL Routine 07/12/2021 3:09 Results for PM BARGE MASTER this procedure are in the results section. MAGNESIUM LEVEL Routine 07/12/2021 3:09 Results f or PM BARGE MASTER this procedure are in the results section. BASIC METABOLIC PANEL, Routine 07/12/2021 3:09 CALCIUM TOTAL PM BARGE MASTER POC GLUCOSE SCREEN Routine 07/12/2021 1:45 Result s for PM BARGE MASTER this procedure are in the results section. POC GLUCOSE SCREEN Routine 07/12/2021 9:40 Result s for AM BARGE MASTER this procedure are in the results section. MANUAL DIFFERENTIAL AM 07/12/2021 1:56 Resul ts for AM BARGE MASTER this procedure are in the results section. Results CBC AM 07/12/2021 1:56 Results for AM BARGE MASTER this procedure are in the results section. CALCIUM LEVEL TOTAL Routine 07/12/2021 1:56 Resul ts for AM BARGE MASTER this procedure are in the results section. .GLOMERULAR FILTRATION Routine 07/12/2021 1:56 Re sults for RATE AM BARGE MASTER this procedure are in the results section. SERUM CREATININE Routine 07/12/2021 1:56 Results for AM BARGE MASTER this procedure are in the results section. ELECTROLYTE PANEL Routine 07/12/2021 1:56 Results for AM BARGE MASTER this procedure are in the results section. BLOOD UREA NITROGEN Routine 07/12/2021 1:56 Resul ts for AM BARGE MASTER this procedure are in the results section. GLUCOSE LEVEL Routine 07/12/2021 1:56 Results for AM BARGE MASTER this procedure are in the results section. PHOSPHORUS LEVEL Routine 07/12/2021 1:56 Results for AM BARGE MASTER this procedure are in the results section. MAGNESIUM LEVEL Routine 07/12/2021 1:56 Results f or AM BARGE MASTER this procedure are in the results section. BASIC METABOLIC PANEL, Routine 07/12/2021 1:56 CALCIUM TOTAL AM BARGE MASTER COMPLETE BLOOD COUNT W/ AM 07/12/2021 1:56 DIFFERENTIAL AM BARGE MASTER POC GLUCOSE SCREEN Routine 07/11/2021 10:09 Resul ts for PM BARGE MASTER this procedure are in the results section. POC GLUCOSE SCREEN Routine 07/11/2021 8:52 Result s for PM BARGE MASTER this procedure are in the results section. POC GLUCOSE SCREEN Routine 07/11/2021 4:27 Result s for PM BARGE MASTER this procedure are in the results section. ECHOCARDIOGRAM 2D Routine 07/11/2021 4:16 Results for COMPLETE PM BARGE MASTER this procedure are in the results section. CALCIUM LEVEL TOTAL Routine 07/11/2021 2:33 Resul ts for PM BARGE MASTER this procedure are in the results section. .GLOMERULAR FILTRATION Routine 07/11/2021 2:33 Re sults for RATE PM BARGE MASTER this procedure are in the results section. SERUM CREATININE Routine 07/11/2021 2:33 Results for PM [employer] this procedure are in the results section. ELECTROLYTE PANEL Routine 07/11/2021 2:33 Results for PM [employer] this procedure are in the results section. BLOOD UREA NITROGEN Routine 07/11/2021 2:33 Resul ts for PM [employer] this procedure are in the results section. GLUCOSE LEVEL Routine 07/11/2021 2:33 Results for PM [employer] this procedure are in the results section. PHOSPHORUS LEVEL Routine 07/11/2021 2:33 Results for PM [employer] this procedure are in the results section. MAGNESIUM LEVEL Routine 07/11/2021 2:33 Results f or PM [employer] this procedure are in the results section. BASIC METABOLIC PANEL, Routine 07/11/2021 2:33 CALCIUM TOTAL PM [employer] POC GLUCOSE SCREEN Routine 07/11/2021 12:33 Resul ts for PM [employer] this procedure are in the results section. POC GLUCOSE SCREEN Routine 07/11/2021 8:52 Result s for AM [employer] this procedure are in the results section. CALCIUM LEVEL TOTAL Routine 07/11/2021 2:00 Resul ts for AM [employer] this procedure are in the results section. .GLOMERULAR FILTRATION Routine 07/11/2021 2:00 Re sults for RATE AM [employer] this procedure are in the results section. SERUM CREATININE Routine 07/11/2021 2:00 Results for AM [employer] this procedure are in the results section. ELECTROLYTE PANEL Routine 07/11/2021 2:00 Results for AM [employer] this procedure are in the results section. BLOOD UREA NITROGEN Routine 07/11/2021 2:00 Resul ts for AM [employer] this procedure are in the results section. GLUCOSE LEVEL Routine 07/11/2021 2:00 Results for AM [employer] this procedure are in the results section. PHOSPHORUS LEVEL Routine 07/11/2021 2:00 Results for AM [employer] this procedure are in the results section. MAGNESIUM LEVEL Routine 07/11/2021 2:00 Results f or AM [employer] this procedure are in the results section. BASIC METABOLIC PANEL, Routine 07/11/2021 2:00 CALCIUM TOTAL AM [employer] MANUAL DIFFERENTIAL AM 07/11/2021 1:46 Resul ts for AM [employer] this procedure are in the results section. Results CBC AM 07/11/2021 1:46 Results for AM [employer] this procedure are in the results section. COMPLETE BLOOD COUNT W/ AM 07/11/2021 1:46 DIFFERENTIAL AM [employer] EKG, 12-LEAD (PORTABLE) Routine 07/11/2021 EKG, 12-LEAD (PORTABLE) STAT 07/11/2021 POC GLUCOSE SCREEN Routine 07/10/2021 9:45 Result s for PM [employer] this procedure are in the results section. POC GLUCOSE SCREEN Routine 07/10/2021 7:36 Result s for PM [employer] this procedure are in the results section. POC GLUCOSE SCREEN Routine 07/10/2021 4:26 Result s for PM [employer] this procedure are in the results section. CALCIUM LEVEL TOTAL Routine 07/10/2021 3:02 Resul ts for PM [employer] this procedure are in the results section. .GLOMERULAR FILTRATION Routine 07/10/2021 3:02 Re sults for RATE PM [employer] this procedure are in the results section. SERUM CREATININE Routine 07/10/2021 3:02 Results for PM [employer] this procedure are in the results section. ELECTROLYTE PANEL Routine 07/10/2021 3:02 Results for PM [employer] this procedure are in the results section. BLOOD UREA NITROGEN Routine 07/10/2021 3:02 Resul ts for PM [employer] this procedure are in the results section. GLUCOSE LEVEL Routine 07/10/2021 3:02 Results for PM [employer] this procedure are in the results section. PHOSPHORUS LEVEL Routine 07/10/2021 3:02 Results for PM [employer] this procedure are in the results section. MAGNESIUM LEVEL Routine 07/10/2021 3:02 Results f or PM [employer] this procedure are in the results section. BASIC METABOLIC PANEL, Routine 07/10/2021 3:02 CALCIUM TOTAL PM [employer] POC GLUCOSE SCREEN Routine 07/10/2021 11:40 Resul ts for AM [employer] this procedure are in the results section. MANUAL DIFFERENTIAL AM 07/10/2021 6:09 Resul ts for AM [employer] this procedure are in the results section. Results CBC AM 07/10/2021 6:09 Results for AM [employer] this procedure are in the results section. CALCIUM LEVEL TOTAL Routine 07/10/2021 6:09 Resul ts for AM [employer] this procedure are in the results section. .GLOMERULAR FILTRATION Routine 07/10/2021 6:09 Re sults for RATE AM [employer] this procedure are in the results section. SERUM CREATININE Routine 07/10/2021 6:09 Results for AM [employer] this procedure are in the results section. ELECTROLYTE PANEL Routine 07/10/2021 6:09 Results for AM [employer] this procedure are in the results section. BLOOD UREA NITROGEN Routine 07/10/2021 6:09 Resul ts for AM [employer] this procedure are in the results section. GLUCOSE LEVEL Routine 07/10/2021 6:09 Results for AM [employer] this procedure are in the results section. TROPONIN T AM 07/10/2021 6:09 Results for AM [employer] this procedure are in the results section. PHOSPHORUS LEVEL Routine 07/10/2021 6:09 Results for AM [employer] this procedure are in the results section. MAGNESIUM LEVEL Routine 07/10/2021 6:09 Results f or AM [employer] this procedure are in the results section. BASIC METABOLIC PANEL, Routine 07/10/2021 6:09 CALCIUM TOTAL AM [employer] COMPLETE BLOOD COUNT W/ AM 07/10/2021 6:09 DIFFERENTIAL AM [employer] POC GLUCOSE SCREEN Routine 07/09/2021 11:11 Resul ts for PM [employer] this procedure are in the results section. BLOOD UREA NITROGEN STAT 07/09/2021 10:35 Resu lts for PM [employer] this procedure are in the results section. CALCIUM IONIZED, VENOUS STAT 07/09/2021 10:35 Results for PM [employer] this procedure are in the results section. .GLOMERULAR FILTRATION STAT 07/09/2021 10:35 R esults for RATE PM [employer] this procedure are in the results section. SERUM CREATININE STAT 07/09/2021 10:35 Results for PM [employer] this procedure are in the results section. ELECTROLYTE PANEL STAT 07/09/2021 10:35 Result s for PM [employer] this procedure are in the results section. GLUCOSE LEVEL STAT 07/09/2021 10:35 Results fo r PM [employer] this procedure are in the results section. TROPONIN T STAT 07/09/2021 10:35 Results for PM [employer] this procedure are in the results section. PHOSPHORUS LEVEL STAT 07/09/2021 10:35 Results for PM [employer] this procedure are in the results section. MAGNESIUM LEVEL STAT 07/09/2021 10:35 Results for PM [employer] this procedure are in the results section. BASIC METABOLIC PANEL, STAT 07/09/2021 10:35 CALCIUM IONIZED PM [employer] LOWER RESPIRATORY Now 07/09/2021 5:33 Results for CULTURE W/ GRAM STAIN PM [employer] this p rocedure are in the results section. POC GLUCOSE SCREEN Routine 07/09/2021 4:30 Result s for PM [employer] this procedure are in the results section. VASCULAR ACCESS Routine 07/09/2021 3:00 Results f or ULTRASOUND PM [employer] this procedure are in the results section. CALCIUM LEVEL TOTAL Routine 07/09/2021 1:45 Resul ts for PM [employer] this procedure are in the results section. .GLOMERULAR FILTRATION Routine 07/09/2021 1:45 Re sults for RATE PM [employer] this procedure are in the results section. SERUM CREATININE Routine 07/09/2021 1:45 Results for PM [employer] this procedure are in the results section. ELECTROLYTE PANEL Routine 07/09/2021 1:45 Results for PM [employer] this procedure are in the results section. BLOOD UREA NITROGEN Routine 07/09/2021 1:45 Resul ts for PM [employer] this procedure are in the results section. GLUCOSE LEVEL Routine 07/09/2021 1:45 Results for PM [employer] this procedure are in the results section. PHOSPHORUS LEVEL Routine 07/09/2021 1:45 Results for PM [employer] this procedure are in the results section. MAGNESIUM LEVEL Routine 07/09/2021 1:45 Results f or PM [employer] this procedure are in the results section. BASIC METABOLIC PANEL, Routine 07/09/2021 1:45 CALCIUM TOTAL PM [employer] OSCILLATORY PEP Routine 07/09/2021 1:21 PM [employer] OSCILLATORY PEP Routine 07/09/2021 1:21 PM [employer] OSCILLATORY PEP Routine 07/09/2021 1:21 PM [employer] POC GLUCOSE SCREEN Routine 07/09/2021 12:42 Resul ts for PM [employer] this procedure are in the results section. POC GLUCOSE SCREEN Routine 07/09/2021 8:56 Result s for AM [employer] this procedure are in the results section. MANUAL DIFFERENTIAL AM 07/09/2021 6:28 Resul ts for AM [employer] this procedure are in the results section. Results CBC AM 07/09/2021 6:28 Results for AM [employer] this procedure are in the results section. CALCIUM LEVEL TOTAL AM 07/09/2021 6:28 Resul ts for AM [employer] this procedure are in the results section. .GLOMERULAR FILTRATION AM 07/09/2021 6:28 Re sults for RATE AM [employer] this procedure are in the results section. SERUM CREATININE AM 07/09/2021 6:28 Results for AM [employer] this procedure are in the results section. ELECTROLYTE PANEL AM 07/09/2021 6:28 Results for AM [employer] this procedure are in the results section. BLOOD UREA NITROGEN AM 07/09/2021 6:28 Resul ts for AM [employer] this procedure are in the results section. GLUCOSE LEVEL AM 07/09/2021 6:28 Results for AM [employer] this procedure are in the results section. PHOSPHORUS LEVEL AM 07/09/2021 6:28 Results for AM [employer] this procedure are in the results section. MAGNESIUM LEVEL AM 07/09/2021 6:28 Results f or AM [employer] this procedure are in the results section. COMPLETE BLOOD COUNT W/ AM 07/09/2021 6:28 DIFFERENTIAL AM [employer] BASIC METABOLIC PANEL, AM 07/09/2021 6:28 CALCIUM TOTAL AM [employer] TROPONIN T Routine 07/09/2021 6:28 Results for AM [employer] this procedure are in the results section. POC GLUCOSE SCREEN Routine 07/08/2021 10:08 Resul ts for PM [employer] this procedure are in the results section. POC GLUCOSE SCREEN Routine 07/08/2021 5:49 Result s for PM [employer] this procedure are in the results section. STREPTOCOCCAL URINE Routine 07/08/2021 5:17 Resul ts for ANTIGEN PATH REVIEW PM [employer] this pro cedure are in the results section. LEGIONELLA URINE Routine 07/08/2021 5:17 Results for ANTIGEN PATH REVIEW PM [employer] this pro cedure are in the results section. LEGIONELLA URINE Now 07/08/2021 5:17 Results for ANTIGEN PM [employer] this procedure are in the results section. STREPTOCOCCUS Now 07/08/2021 5:17 Results for PNEUMONIAE URINE PM [employer] this proced ure ANTIGEN are in the results section. GENERAL LABORATORY ADD Now 07/08/2021 3:35 Re sults for ON TEST PM [employer] this procedure are in the results section. MRSA SCREENING CULTURE Now 07/08/2021 3:23 Re sults for PM [employer] this procedure are in the results section. CT CHEST PULMONARY Routine 07/08/2021 1:38 Result s for EMBOLISM W CONTRAST PM [employer] this pro cedure are in the results section. XR ABDOMEN AP Routine 07/08/2021 1:31 Results for PM [employer] this procedure are in the results section. POC CRITICAL Routine 07/08/2021 12:14 Results for PM [employer] this procedure are in the results section. POC CHEM 8 Routine 07/08/2021 12:14 Results for PM [employer] this procedure are in the results section. PROCALCITONIN Now 07/08/2021 12:13 Results fo r PM [employer] this procedure are in the results section. FRACTIONATED BILIRUBIN Now 07/08/2021 12:13 R esults for PM [employer] this procedure are in the results section. TOTAL PROTEIN Now 07/08/2021 12:13 Results fo r PM [employer] this procedure are in the results section. ASPARTATE Now 07/08/2021 12:13 Results for AMINOTRANSFERASE PM [employer] this proced ure are in the results section. ALANINE Now 07/08/2021 12:13 Results for AMINOTRANSFERASE PM [employer] MA[employer] this proced ure are in the results section. ALKALINE PHOSPHATASE Now 07/08/2021 12:13 Res ults for PM [employer] this procedure are in the results section. ALBUMIN LEVEL Now 07/08/2021 12:13 Results fo r PM [employer] this procedure are in the results section. CALCIUM LEVEL TOTAL Now 07/08/2021 12:13 Resu lts for PM [employer] this procedure are in the results section. .GLOMERULAR FILTRATION Now 07/08/2021 12:13 R esults for RATE PM [employer] this procedure are in the results section. SERUM CREATININE Now 07/08/2021 12:13 Results for PM [employer] this procedure are in the results section. ELECTROLYTE PANEL Now 07/08/2021 12:13 Result s for PM [employer] this procedure are in the results section. BLOOD UREA NITROGEN Now 07/08/2021 12:13 Resu lts for PM [employer] this procedure are in the results section. GLUCOSE LEVEL Now 07/08/2021 12:13 Results fo r PM [employer] this procedure are in the results section. MANUAL DIFFERENTIAL STAT 07/08/2021 12:13 Resu lts for PM [employer] this procedure are in the results section. Results CBC STAT 07/08/2021 12:13 Results for PM [employer] this procedure are in the results section. CARDIAC PANEL Timed Study 07/08/2021 12:13 Results fo r PM [employer] this procedure are in the results section. D DIMER Now 07/08/2021 12:13 Results for PM [employer] this procedure are in the results section. APTT Now 07/08/2021 12:13 Results for PM [employer] this procedure are in the results section. PROTHROMBIN TIME Now 07/08/2021 12:13 Results for PM [employer] this procedure are in the results section. PHOSPHORUS LEVEL Now 07/08/2021 12:13 Results for PM [employer] this procedure are in the results section. MAGNESIUM LEVEL Now 07/08/2021 12:13 Results for PM [employer] this procedure are in the results section. COMPREHENSIVE METABOLIC Now 07/08/2021 12:13 PANEL PM [employer] COMPLETE BLOOD COUNT W/ Now 07/08/2021 12:13 DIFFERENTIAL PM [employer] XR CHEST 1 VW Routine 07/08/2021 11:38 Results fo r AM [employer] this procedure are in the results section. COVID-19 (SARS-COV-2) Now 07/08/2021 11:23 Re sults for ASYMPTOMATIC-LT AM [employer] this procedu re are in the results section. CT HEAD WO CONTRAST Routine 07/08/2021 11:05 Resu lts for AM [employer] this procedure are in the results section. POC GLUCOSE SCREEN Routine 07/08/2021 10:47 Resul ts for AM [employer] this procedure are in the results section. 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 TOTAL PROTEIN Routine 07/04/2021 11:10 Primary squamous Result s for AM [employer] cell carcinoma of this proce dure larynx are in the results section. 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 ALBUMIN LEVEL Routine 07/04/2021 11:10 Primary squamous Result s for AM [employer] cell carcinoma of this proce dure larynx are in the results section. 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 SERUM CREATININE Routine 07/04/2021 11:10 Primary squamous Res ults for AM [employer] cell carcinoma of this proce dure larynx are in the results section. ELECTROLYTE PANEL Routine 07/04/2021 11:10 Primary squamous Re sults for AM [employer] cell carcinoma of this proce dure larynx are in the results section. 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 GLUCOSE LEVEL Routine 07/04/2021 11:10 Primary squamous Result s for AM [employer] cell carcinoma of this proce dure larynx are in the results section. PHOSPHORUS LEVEL Routine 07/04/2021 11:10 Primary squamous Res ults for AM [employer] cell carcinoma of this proce dure larynx are in the results section. MAGNESIUM LEVEL Routine 07/04/2021 11:10 Primary squamous Resu lts for AM [employer] cell carcinoma of this proce dure larynx are in the results section. COMPLETE BLOOD COUNT W/ Routine 07/04/2021 11:10 Primary squam ous DIFFERENTIAL AM [employer] cell carcinoma of larynx COMPREHENSIVE METABOLIC Routine 07/04/2021 11:10 Primary squam ous PANEL AM [employer] cell carcinoma of larynx MANUAL DIFFERENTIAL Routine 06/27/2021 8:00 Primary squamous R esults for AM [employer] cell carcinoma of this proce dure larynx are in the results section. 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 FRACTIONATED BILIRUBIN Routine 06/27/2021 8:00 Primary squamou s Results for AM [employer] cell carcinoma of this proce dure larynx are in the results section. 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 ASPARTATE Routine 06/27/2021 8:00 Primary squamous Results for AMINOTRANSFERASE AM [employer] cell carcinoma of this p rocedure larynx are in the results section. ALANINE Routine 06/27/2021 8:00 Primary squamous Results for AMINOTRANSFERASE AM [employer] cell carcinoma of this p rocedure larynx are in the results section. 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 CALCIUM LEVEL TOTAL Routine 06/27/2021 8:00 Primary squamous R esults for AM [employer] cell carcinoma of this proce dure larynx are in the results section. .GLOMERULAR FILTRATION Routine 06/27/2021 8:00 Primary squamou s Results for RATE AM [employer] cell carcinoma of this proce dure larynx are in the results section. SERUM CREATININE Routine 06/27/2021 8:00 Primary squamous Resu lts for AM [employer] cell carcinoma of this proce dure larynx are in the results section. ELECTROLYTE PANEL Routine 06/27/2021 8:00 Primary squamous Res ults for AM [employer] cell carcinoma of this proce dure larynx are in the results section. BLOOD UREA NITROGEN Routine 06/27/2021 8:00 Primary squamous R esults for AM [employer] cell carcinoma of this proce dure larynx are in the results section. 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 PHOSPHORUS LEVEL Routine 06/27/2021 8:00 Primary squamous Resu lts for AM [employer] cell carcinoma of this proce dure larynx are in the results section. MAGNESIUM LEVEL Routine 06/27/2021 8:00 Primary squamous Resul ts for AM [employer] cell carcinoma of this proce dure larynx are in the results section. COMPLETE BLOOD COUNT W/ Routine 06/27/2021 8:00 Primary squamo us DIFFERENTIAL AM [employer] cell carcinoma of larynx COMPREHENSIVE METABOLIC Routine 06/27/2021 8:00 Primary squamo us PANEL AM [employer] cell carcinoma of larynx TROPONIN T STAT 06/22/2021 3:45 Results for PM [employer] this procedure are in the results section. FRACTIONATED BILIRUBIN Now 06/22/2021 11:54 R esults for AM [employer] this procedure are in the results section. TOTAL PROTEIN Now 06/22/2021 11:54 Results fo r AM [employer] this procedure are in the results section. ASPARTATE Now 06/22/2021 11:54 Results for AMINOTRANSFERASE AM [employer] this proced ure are in the results section. ALANINE Now 06/22/2021 11:54 Results for AMINOTRANSFERASE AM [employer] MA[employer] this proced ure are in the results section. ALKALINE PHOSPHATASE Now 06/22/2021 11:54 Res ults for AM [employer] this procedure are in the results section. ALBUMIN LEVEL Now 06/22/2021 11:54 Results fo r AM [employer] this procedure are in the results section. CALCIUM LEVEL TOTAL Now 06/22/2021 11:54 Resu lts for AM [employer] this procedure are in the results section. .GLOMERULAR FILTRATION Now 06/22/2021 11:54 R esults for RATE AM [employer] this procedure are in the results section. SERUM CREATININE Now 06/22/2021 11:54 Results for AM [employer] this procedure are in the results section. ELECTROLYTE PANEL Now 06/22/2021 11:54 Result s for AM [employer] this procedure are in the results section. BLOOD UREA NITROGEN Now 06/22/2021 11:54 Resu lts for AM [employer] this procedure are in the results section. GLUCOSE LEVEL Now 06/22/2021 11:54 Results fo r AM [employer] this procedure are in the results section. MANUAL DIFFERENTIAL STAT 06/22/2021 11:54 Resu lts for AM [employer] this procedure are in the results section. Results CBC STAT 06/22/2021 11:54 Results for AM [employer] this procedure are in the results section. CKMB Now 06/22/2021 11:54 Results for AM [employer] this procedure are in the results section. CREATINE KINASE Now 06/22/2021 11:54 Results for AM [employer] this procedure are in the results section. NT PRO BNP Now 06/22/2021 11:54 Results for AM [employer] this procedure are in the results section. PHOSPHORUS LEVEL Now 06/22/2021 11:54 Results for AM [employer] this procedure are in the results section. MAGNESIUM LEVEL Now 06/22/2021 11:54 Results for AM [employer] this procedure are in the results section. COMPREHENSIVE METABOLIC Now 06/22/2021 11:54 PANEL AM [employer] COMPLETE BLOOD COUNT W/ Now 06/22/2021 11:54 DIFFERENTIAL AM [employer] COVID-19 (SARS-COV-2) Now 06/22/2021 11:54 Re sults for ASYMPTOMATIC-LT AM [employer] this procedu re are in the results section. EKG, 12-LEAD (PORTABLE) Routine 06/22/2021 EKG, 12-LEAD (PORTABLE) STAT 06/22/2021 CT HEAD/NECK SIMULATION Routine 06/21/2021 9:00 Primary squamo us Results for WO CONTRAST (RO) AM [employer] cell carcinoma of this p rocedure larynx are in the results section. MANUAL DIFFERENTIAL Routine 06/20/2021 8:07 Primary squamous R esults for AM [employer] cell carcinoma of this proce dure larynx are in the results section. 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 FRACTIONATED BILIRUBIN Routine 06/20/2021 8:07 Primary squamou s Results for AM [employer] cell carcinoma of this proce dure larynx are in the results section. 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 ASPARTATE Routine 06/20/2021 8:07 Primary squamous Results for AMINOTRANSFERASE AM [employer] cell carcinoma of this p rocedure larynx are in the results section. ALANINE Routine 06/20/2021 8:07 Primary squamous Results for AMINOTRANSFERASE AM [employer] cell carcinoma of this p rocedure larynx are in the results section. 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 CALCIUM LEVEL TOTAL Routine 06/20/2021 8:07 Primary squamous R esults for AM [employer] cell carcinoma of this proce dure larynx are in the results section. .GLOMERULAR FILTRATION Routine 06/20/2021 8:07 Primary squamou s Results for RATE AM [employer] cell carcinoma of this proce dure larynx are in the results section. SERUM CREATININE Routine 06/20/2021 8:07 Primary squamous Resu lts for AM [employer] cell carcinoma of this proce dure larynx are in the results section. ELECTROLYTE PANEL Routine 06/20/2021 8:07 Primary squamous Res ults for AM [employer] cell carcinoma of this proce dure larynx are in the results section. BLOOD UREA NITROGEN Routine 06/20/2021 8:07 Primary squamous R esults for AM [employer] cell carcinoma of this proce dure larynx are in the results section. GLUCOSE LEVEL Routine 06/20/2021 8:07 Primary squamous Results for AM [employer] cell carcinoma of this proce dure larynx are in the results section. PHOSPHORUS LEVEL Routine 06/20/2021 8:07 Primary squamous Resu lts for AM [employer] cell carcinoma of this proce dure larynx are in the results section. MAGNESIUM LEVEL Routine 06/20/2021 8:07 Primary squamous Resul ts for AM [employer] cell carcinoma of this proce dure larynx are in the results section. COMPLETE BLOOD COUNT W/ Routine 06/20/2021 8:07 Primary squamo us DIFFERENTIAL AM [employer] cell carcinoma of larynx COMPREHENSIVE METABOLIC Routine 06/20/2021 8:07 Primary squamo us PANEL AM [employer] cell carcinoma of larynx MANUAL DIFFERENTIAL Routine 06/13/2021 7:00 Primary squamous R esults for AM [employer] cell carcinoma of this proce dure larynx are in the results section. Results CBC Routine 06/13/2021 7:00 Primary squamous Results for AM [employer] cell carcinoma of this proce dure larynx are in the results section. FRACTIONATED BILIRUBIN Routine 06/13/2021 7:00 Primary squamou s Results for AM [employer] cell carcinoma of this proce dure larynx are in the results section. TOTAL PROTEIN Routine 06/13/2021 7:00 Primary squamous Results for AM [employer] cell carcinoma of this proce dure larynx are in the results section. ASPARTATE Routine 06/13/2021 7:00 Primary squamous Results for AMINOTRANSFERASE AM [employer] cell carcinoma of this p rocedure larynx are in the results section. ALANINE Routine 06/13/2021 7:00 Primary squamous Results for AMINOTRANSFERASE AM [employer] cell carcinoma of this p rocedure larynx are in the results section. ALKALINE PHOSPHATASE Routine 06/13/2021 7:00 Primary squamous Results for AM [employer] cell carcinoma of this proce dure larynx are in the results section. ALBUMIN LEVEL Routine 06/13/2021 7:00 Primary squamous Results for AM [employer] cell carcinoma of this proce dure larynx are in the results section. CALCIUM LEVEL TOTAL Routine 06/13/2021 7:00 Primary squamous R esults for AM [employer] cell carcinoma of this proce dure larynx are in the results section. .GLOMERULAR FILTRATION Routine 06/13/2021 7:00 Primary squamou s Results for RATE AM [employer] cell carcinoma of this proce dure larynx are in the results section. SERUM CREATININE Routine 06/13/2021 7:00 Primary squamous Resu lts for AM [employer] cell carcinoma of this proce dure larynx are in the results section. ELECTROLYTE PANEL Routine 06/13/2021 7:00 Primary squamous Res ults for AM [employer] cell carcinoma of this proce dure larynx are in the results section. BLOOD UREA NITROGEN Routine 06/13/2021 7:00 Primary squamous R esults for AM [employer] cell carcinoma of this proce dure larynx are in the results section. GLUCOSE LEVEL Routine 06/13/2021 7:00 Primary squamous Results for AM [employer] cell carcinoma of this proce dure larynx are in the results section. PHOSPHORUS LEVEL Routine 06/13/2021 7:00 Primary squamous Resu lts for AM [employer] cell carcinoma of this proce dure larynx are in the results section. MAGNESIUM LEVEL Routine 06/13/2021 7:00 Primary squamous Resul ts for AM [employer] cell carcinoma of this proce dure larynx are in the results section. COMPLETE BLOOD COUNT W/ Routine 06/13/2021 7:00 Primary squamo us DIFFERENTIAL AM [employer] cell carcinoma of larynx COMPREHENSIVE METABOLIC Routine 06/13/2021 7:00 Primary squamo us PANEL AM [employer] cell carcinoma of larynx MANUAL DIFFERENTIAL Routine 06/06/2021 6:58 Primary squamous R esults for AM [employer] cell carcinoma of this proce dure larynx are in the results section. Results CBC Routine 06/06/2021 6:58 Primary squamous Results for AM [employer] cell carcinoma of this proce dure larynx are in the results section. FRACTIONATED BILIRUBIN Routine 06/06/2021 6:58 Primary squamou s Results for AM [employer] cell carcinoma of this proce dure larynx are in the results section. TOTAL PROTEIN Routine 06/06/2021 6:58 Primary squamous Results for AM [employer] cell carcinoma of this proce dure larynx are in the results section. ASPARTATE Routine 06/06/2021 6:58 Primary squamous Results for AMINOTRANSFERASE AM [employer] cell carcinoma of this p rocedure larynx are in the results section. ALANINE Routine 06/06/2021 6:58 Primary squamous Results for AMINOTRANSFERASE AM [employer] cell carcinoma of this p rocedure larynx are in the results section. ALKALINE PHOSPHATASE Routine 06/06/2021 6:58 Primary squamous Results for AM [employer] cell carcinoma of this proce dure larynx are in the results section. ALBUMIN LEVEL Routine 06/06/2021 6:58 Primary squamous Results for AM [employer] cell carcinoma of this proce dure larynx are in the results section. CALCIUM LEVEL TOTAL Routine 06/06/2021 6:58 Primary squamous R esults for AM [employer] cell carcinoma of this proce dure larynx are in the results section. .GLOMERULAR FILTRATION Routine 06/06/2021 6:58 Primary squamou s Results for RATE AM [employer] cell carcinoma of this proce dure larynx are in the results section. SERUM CREATININE Routine 06/06/2021 6:58 Primary squamous Resu lts for AM [employer] cell carcinoma of this proce dure larynx are in the results section. ELECTROLYTE PANEL Routine 06/06/2021 6:58 Primary squamous Res ults for AM [employer] cell carcinoma of this proce dure larynx are in the results section. BLOOD UREA NITROGEN Routine 06/06/2021 6:58 Primary squamous R esults for AM [employer] cell carcinoma of this proce dure larynx are in the results section. GLUCOSE LEVEL Routine 06/06/2021 6:58 Primary squamous Results for AM [employer] cell carcinoma of this proce dure larynx are in the results section. PHOSPHORUS LEVEL Routine 06/06/2021 6:58 Primary squamous Resu lts for AM [employer] cell carcinoma of this proce dure larynx are in the results section. MAGNESIUM LEVEL Routine 06/06/2021 6:58 Primary squamous Resul ts for AM [employer] cell carcinoma of this proce dure larynx are in the results section. COMPLETE BLOOD COUNT W/ Routine 06/06/2021 6:58 Primary squamo us DIFFERENTIAL AM [employer] cell carcinoma of larynx COMPREHENSIVE METABOLIC Routine 06/06/2021 6:58 Primary squamo us PANEL AM [employer] cell carcinoma of larynx MANUAL DIFFERENTIAL Routine 05/30/2021 8:28 Primary squamous R esults for AM [employer] cell carcinoma of this proce dure larynx are in the results section. Results CBC Routine 05/30/2021 8:28 Primary squamous Results for AM [employer] cell carcinoma of this proce dure larynx are in the results section. FRACTIONATED BILIRUBIN Routine 05/30/2021 8:28 Primary squamou s Results for AM [employer] cell carcinoma of this proce dure larynx are in the results section. TOTAL PROTEIN Routine 05/30/2021 8:28 Primary squamous Results for AM [employer] cell carcinoma of this proce dure larynx are in the results section. ASPARTATE Routine 05/30/2021 8:28 Primary squamous Results for AMINOTRANSFERASE AM [employer] cell carcinoma of this p rocedure larynx are in the results section. ALANINE Routine 05/30/2021 8:28 Primary squamous Results for AMINOTRANSFERASE AM [employer] cell carcinoma of this p rocedure larynx are in the results section. ALKALINE PHOSPHATASE Routine 05/30/2021 8:28 Primary squamous Results for AM [employer] cell carcinoma of this proce dure larynx are in the results section. ALBUMIN LEVEL Routine 05/30/2021 8:28 Primary squamous Results for AM [employer] cell carcinoma of this proce dure larynx are in the results section. CALCIUM LEVEL TOTAL Routine 05/30/2021 8:28 Primary squamous R esults for AM [employer] cell carcinoma of this proce dure larynx are in the results section. .GLOMERULAR FILTRATION Routine 05/30/2021 8:28 Primary squamou s Results for RATE AM [employer] cell carcinoma of this proce dure larynx are in the results section. SERUM CREATININE Routine 05/30/2021 8:28 Primary squamous Resu lts for AM [employer] cell carcinoma of this proce dure larynx are in the results section. ELECTROLYTE PANEL Routine 05/30/2021 8:28 Primary squamous Res ults for AM [employer] cell carcinoma of this proce dure larynx are in the results section. BLOOD UREA NITROGEN Routine 05/30/2021 8:28 Primary squamous R esults for AM [employer] cell carcinoma of this proce dure larynx are in the results section. GLUCOSE LEVEL Routine 05/30/2021 8:28 Primary squamous Results for AM [employer] cell carcinoma of this proce dure larynx are in the results section. PHOSPHORUS LEVEL Routine 05/30/2021 8:28 Primary squamous Resu lts for AM [employer] cell carcinoma of this proce dure larynx are in the results section. MAGNESIUM LEVEL Routine 05/30/2021 8:28 Primary squamous Resul ts for AM [employer] cell carcinoma of this proce dure larynx are in the results section. COMPLETE BLOOD COUNT W/ Routine 05/30/2021 8:28 Primary squamo us DIFFERENTIAL AM [employer] cell carcinoma of larynx COMPREHENSIVE METABOLIC Routine 05/30/2021 8:28 Primary squamo us PANEL AM [employer] cell carcinoma of larynx MANUAL DIFFERENTIAL Routine 05/23/2021 8:42 Primary squamous R esults for AM [employer] cell carcinoma of this proce dure larynx are in the results section. Results CBC Routine 05/23/2021 8:42 Primary squamous Results for AM [employer] cell carcinoma of this proce dure larynx are in the results section. FRACTIONATED BILIRUBIN Routine 05/23/2021 8:42 Primary squamou s Results for AM [employer] cell carcinoma of this proce dure larynx are in the results section. TOTAL PROTEIN Routine 05/23/2021 8:42 Primary squamous Results for AM [employer] cell carcinoma of this proce dure larynx are in the results section. ASPARTATE Routine 05/23/2021 8:42 Primary squamous Results for AMINOTRANSFERASE AM [employer] cell carcinoma of this p rocedure larynx are in the results section. ALANINE Routine 05/23/2021 8:42 Primary squamous Results for AMINOTRANSFERASE AM [employer] cell carcinoma of this p rocedure larynx are in the results section. ALKALINE PHOSPHATASE Routine 05/23/2021 8:42 Primary squamous Results for AM [employer] cell carcinoma of this proce dure larynx are in the results section. ALBUMIN LEVEL Routine 05/23/2021 8:42 Primary squamous Results for AM [employer] cell carcinoma of this proce dure larynx are in the results section. CALCIUM LEVEL TOTAL Routine 05/23/2021 8:42 Primary squamous R esults for AM [employer] cell carcinoma of this proce dure larynx are in the results section. .GLOMERULAR FILTRATION Routine 05/23/2021 8:42 Primary squamou s Results for RATE AM [employer] cell carcinoma of this proce dure larynx are in the results section. SERUM CREATININE Routine 05/23/2021 8:42 Primary squamous Resu lts for AM [employer] cell carcinoma of this proce dure larynx are in the results section. ELECTROLYTE PANEL Routine 05/23/2021 8:42 Primary squamous Res ults for AM [employer] cell carcinoma of this proce dure larynx are in the results section. BLOOD UREA NITROGEN Routine 05/23/2021 8:42 Primary squamous R esults for AM [employer] cell carcinoma of this proce dure larynx are in the results section. GLUCOSE LEVEL Routine 05/23/2021 8:42 Primary squamous Results for AM [employer] cell carcinoma of this proce dure larynx are in the results section. PHOSPHORUS LEVEL Routine 05/23/2021 8:42 Primary squamous Resu lts for AM [employer] cell carcinoma of this proce dure larynx are in the results section. MAGNESIUM LEVEL Routine 05/23/2021 8:42 Primary squamous Resul ts for AM [employer] cell carcinoma of this proce dure larynx are in the results section. COMPLETE BLOOD COUNT W/ Routine 05/23/2021 8:42 Primary squamo us DIFFERENTIAL AM [employer] cell carcinoma of larynx COMPREHENSIVE METABOLIC Routine 05/23/2021 8:42 Primary squamo us PANEL AM [employer] cell carcinoma of larynx FL MODIFIED BARIUM Routine 05/18/2021 9:57 Primary squamous Re sults for SWALLOW W SPEECH AM [employer] cell carcinoma of this p rocedure larynx are in the results section. CT HEAD/NECK SIMULATION Routine 05/11/2021 10:46 Primary squam ous Results for WO CONTRAST (RO) AM [employer] cell carcinoma of this p rocedure larynx are in the results section. COVID-19 Routine 05/11/2021 9:05 Encounter for Results for (SARS-COV-2) PCR AM [employer] observation for this pro cedure ASYMPTOMATIC other suspected are in the exposure to results biological agent section. ruled out ORTHOPANTOGRAM Routine 05/06/2021 10:53 Encounter for Results for AM [employer] observation for this procedu re other suspected are in the disease ruled out results section. W[employer]IC[employer] 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 Routine 05/06/2021 9:58 Primary squamous Results for AM [employer] cell carcinoma of this proce dure larynx are in the results section. FRACTIONATED BILIRUBIN Routine 05/04/2021 11:10 Primary squamo us Results for AM [employer] cell carcinoma of this proce dure larynx are in the results section. TOTAL PROTEIN Routine 05/04/2021 11:10 Primary squamous Result s for AM [employer] cell carcinoma of this proce dure larynx are in the results section. ASPARTATE Routine 05/04/2021 11:10 Primary squamous Results for AMINOTRANSFERASE AM [employer] cell carcinoma of this p rocedure larynx are in the results section. ALANINE Routine 05/04/2021 11:10 Primary squamous Results for AMINOTRANSFERASE AM [employer] cell carcinoma of this p rocedure larynx are in the results section. ALKALINE PHOSPHATASE Routine 05/04/2021 11:10 Primary squamous Results for AM [employer] cell carcinoma of this proce dure larynx are in the results section. ALBUMIN LEVEL Routine 05/04/2021 11:10 Primary squamous Result s for AM [employer] cell carcinoma of this proce dure larynx are in the results section. .GLOMERULAR FILTRATION Routine 05/04/2021 11:10 Primary squamo us Results for RATE AM [employer] cell carcinoma of this proce dure larynx are in the results section. SERUM CREATININE Routine 05/04/2021 11:10 Primary squamous Res ults for AM [employer] cell carcinoma of this proce dure larynx are in the results section. VITAMIN D 25 HYDROXY Routine 05/04/2021 11:10 Primary squamous Results for LEVEL AM [employer] cell carcinoma of this proce dure larynx are in the results section. HEPATIC FUNCTION PANEL Routine 05/04/2021 11:10 Primary squamo us AM [employer] cell carcinoma of larynx CALCIUM LEVEL TOTAL Routine 05/04/2021 11:10 Primary squamous Results for AM [employer] cell carcinoma of this proce dure larynx are in the results section. PHOSPHORUS LEVEL Routine 05/04/2021 11:10 Primary squamous Res ults for AM [employer] cell carcinoma of this proce dure larynx are in the results section. MAGNESIUM LEVEL Routine 05/04/2021 11:10 Primary squamous Resu lts for AM [employer] cell carcinoma of this proce dure larynx are in the results section. GLUCOSE, RANDOM Routine 05/04/2021 11:10 Primary squamous Resu lts for AM [employer] cell carcinoma of this proce dure larynx are in the results section. SERUM CREATININE Routine 05/04/2021 11:10 Primary squamous AM [employer] cell carcinoma of larynx BLOOD UREA NITROGEN Routine 05/04/2021 11:10 Primary squamous Results for AM [employer] cell carcinoma of this proce dure larynx are in the results section. ELECTROLYTE PANEL Routine 05/04/2021 11:10 Primary squamous Re sults for AM [employer] cell carcinoma of this proce dure larynx are in the results section. COVID-19 Routine 05/04/2021 10:23 Suspected COVID-19 Resul ts for (SARS-COV-2) PCR AM [employer] this proced ure ASYMPTOMATIC are in the results section. TMP HCVAB INTERP Routine 05/03/2021 8:26 Results for AM [employer] this procedure are in the results section. FRACTIONATED BILIRUBIN Routine 05/03/2021 8:26 Primary squamou s Results for AM [employer] cell carcinoma of this proce dure larynx are in the results section. TOTAL PROTEIN Routine 05/03/2021 8:26 Primary squamous Results for AM [employer] cell carcinoma of this proce dure larynx are in the results section. ASPARTATE Routine 05/03/2021 8:26 Primary squamous Results for AMINOTRANSFERASE AM [employer] cell carcinoma of this p rocedure larynx are in the results section. ALANINE Routine 05/03/2021 8:26 Primary squamous Results for AMINOTRANSFERASE AM [employer] cell carcinoma of this p rocedure larynx are in the results section. ALKALINE PHOSPHATASE Routine 05/03/2021 8:26 Primary squamous Results for AM [employer] cell carcinoma of this proce dure larynx are in the results section. ALBUMIN LEVEL Routine 05/03/2021 8:26 Primary squamous Results for AM [employer] cell carcinoma of this proce dure larynx are in the results section. CALCIUM LEVEL TOTAL Routine 05/03/2021 8:26 Primary squamous R esults for AM [employer] cell carcinoma of this proce dure larynx are in the results section. .GLOMERULAR FILTRATION Routine 05/03/2021 8:26 Primary squamou s Results for RATE AM [employer] cell carcinoma of this proce dure larynx are in the results section. SERUM CREATININE Routine 05/03/2021 8:26 Primary squamous Resu lts for AM [employer] cell carcinoma of this proce dure larynx are in the results section. ELECTROLYTE PANEL Routine 05/03/2021 8:26 Primary squamous Res ults for AM [employer] cell carcinoma of this proce dure larynx are in the results section. BLOOD UREA NITROGEN Routine 05/03/2021 8:26 Primary squamous R esults for AM [employer] cell carcinoma of this proce dure larynx are in the results section. GLUCOSE LEVEL Routine 05/03/2021 8:26 Primary squamous Results for AM [employer] cell carcinoma of this proce dure larynx are in the results section. MANUAL DIFFERENTIAL Routine 05/03/2021 8:26 Primary squamous R esults for AM [employer] cell carcinoma of this proce dure larynx are in the results section. Results CBC Routine 05/03/2021 8:26 Primary squamous Results for AM [employer] cell carcinoma of this proce dure larynx are in the results section. FREE THYROXINE Routine 05/03/2021 8:26 Primary squamous Result s for AM [employer] cell carcinoma of this proce dure larynx are in the results section. HEPATITIS C VIRUS Routine 05/03/2021 8:26 Primary squamous Res ults for ANTIBODY AM [employer] cell carcinoma of this proce dure larynx are in the results section. THYROID STIMULATING Routine 05/03/2021 8:26 Primary squamous R esults for HORMONE AM [employer] cell carcinoma of this proce dure larynx are in the results section. COMPREHENSIVE METABOLIC Routine 05/03/2021 8:26 Primary squamo us PANEL AM [employer] cell carcinoma of larynx COMPLETE BLOOD COUNT W/ Routine 05/03/2021 8:26 Primary squamo us DIFFERENTIAL AM [employer] cell carcinoma of larynx CT CHEST W CONTRAST Routine 05/03/2021 7:27 Primary squamous R esults for AM [employer] cell carcinoma of this proce dure larynx are in the results section. CT SOFT TISSUE NECK W Routine 05/03/2021 7:27 Primary squamous Results for CONTRAST AM [employer] cell carcinoma of this proce dure larynx are in the results section. POC CREATININE Routine 05/03/2021 6:56 Results fo r AM [employer] this procedure are in the results section. OSI PET CT SKULL TO MID Routine 04/07/2021 1:24 Cancer R esults for THIGH PM CDT this procedure are in the results section. PATHOLOGY OUTSIDE Routine 03/28/2021 Results fo r INTERPRETATION this procedur e are in the results section. OSI CHEST Routine 03/24/2021 1:24 Cancer Results for PM CDT this procedure are in the results section. after 01/13/2021 Results (ABNORMAL) .Serum Creatinine (01/12/2022 10:00 AM CDT)Only the most recent of48 resultswithin the time period is included. P athologist Signature Creatinine 0.52 (L) 0.67 - [facility] 1.17 mg/dL [facility] Specimen Anatomical Collection Method Collection Time Receive d Time (Source) Location / / Volume Laterality Blood 01/12/2022 10:00 01/12/2022 AM CDT 10:21 AM CDT Deshawn Ahuja MD LAB BLOOD ORDERABLES Performing Organization Address City/State/ZIP Code Phon e Number [facility] Unless otherwise noted, [place] [phone] CENTER all lab tests performed by: Division of Pathology and Laboratory Medicine [address] [place] [address] (ABNORMAL) .CBC (01/12/2022 10:00 AM CDT)Only the most recent of44 resultswithin the time period is included. Analysis Performed At Patho logist Time Signature WBC 2.7 (L) 4.0 - 11.0 [facility] K/uL [facility] CENTER RBC 3.71 (L) 4.50 - [facility] 6.00 M/uL [facility]ENTER Hgb 9.9 (L) 14.0 - [facility] 18.0 gm/dL [facility] Hct 31.8 (L) 40.0 - [facility] 54.0 % [facility]ENTER MCV 86 82 - 98 fL [facility] [place] MCH 26.7 (L) 27.0 - [facility] 31.0 pg DIAGNOSTIC CENTER MCHC 31.1 31.0 - [facility] 36.0 gm/dL [facility]ENTER RDW-SD 54.7 (H) 35.1 - [facility] 46.3 fL DI[facility]IC CENTER RDW-CV 17.7 (H) 12.0 - [facility] 15.5 % [facility]ENTER Platelet count 102 (L) 140 - 440 [facility] K/uL DI[facility]STIC CENTER MPV 10.7 (H) 4.0 - 10.4 [facility] INRBC 0.0 <=0.0 % [facility] [place] Comment: The INRBC (instrument NRBC) value reflec ts the enumeration of nucleated red blood cells contained i n a 200uL sample of whole blood analyzed by the instrumen t. This value may differ from the NRBC value reported in a manual differential, which is based on a 100 cell differentia l. Specimen Anatomical Collection Method Collection Time Receive d Time (Source) Location / / Volume Laterality Blood 01/12/2022 10:00 01/12/2022 AM CDT 10:16 AM CDT Deshawn Ahuja MD LAB BLOOD ORDERABLES Performing Organization Address City/State/ZIP Code Phon e Number [facility] Unless otherwise noted, [place] [phone] [place] all lab tests performed by: Division of Pathology and Laboratory Medicine [address] [place] [address] Glomerular Filtration Rate (01/12/2022 10:00 AM CDT)Only the most recent of48 resultswithin the time period is included. P athologist Signature eGFR-AA 123 >=60 [facility] mL/min/1.73 [facility] Comment: Normal eGFR: >= 60 mL/min/1.73 m2 Note: The eGFR is calculated using the C KD-EPI equation. The eGFR declines with age. eGFR <60 mL/min/1.73 m2 is considered as "decreased". This equation should only be used for patients 18 and older. According to the [employer]'s Kidney Disease Outcome Quality Initiative (KDOQI) classification and 2012 Kidney Disease Improving Global Outcomes (KDIGO) Clinical Practice Guideline, the stage of CKD should be categorized based on estimated GFR. Stage Description GFR mL/min/1. 73 m2 1 Normal or high GFR >=90 2 Mildly decreased GFR 60-89 3a Mildly to moderately decreased GFR 45-59 3b Moderately to severely decreased GFR 30-44 4 Severely decreased GFR 15-29 5 Kidney failure <15 eGFR-JOSELITO 107 >=60 mL/min/1.73 sq. m [place] MD Nirmal [facility] Comment: Normal eGFR: >= 60 mL/min/1.73 m2 Note: The eGFR is calculated using the C KD-EPI equation. The eGFR declines with age. eGFR <60 mL/min/1.73 m2 is considered as "decreased". This equation should only be used for patients 18 and older. According to the [employer]'s Kidney Disease Outcome Quality Initiative (KDOQI) classification and 2012 Kidney Disease Improving Global Outcomes (KDIGO) Clinical Practice Guideline, the stage of CKD should be categorized based on estimated GFR. Stage Description GFR mL/min/1. 73 m2 1 Normal or high GFR >=90 2 Mildly decreased GFR 60-89 3a Mildly to moderately decreased GFR 45-59 3b Moderately to severely decreased GFR 30-44 4 Severely decreased GFR 15-29 5 Kidney failure <15 Specimen Anatomical Collection Method Collection Time Receive d Time (Source) Location / / Volume Laterality Blood 01/12/2022 10:00 01/12/2022 AM CDT 10:21 AM CDT Deshawn Ahuja MD LAB BLOOD ORDERABLES Performing Organization Address City/State/ZIP Code Phon e Number [place] MD [facility] Unless otherwise noted, [place] [phone] [place] all lab tests performed by: Division of Pathology and Laboratory Medicine [address] [place] Fractionated Bilirubin (01/12/2022 10:00 AM CDT)Only the most recent of20 resultswithin the time period is included. [facility] Bili Total 0.3 <=1.2 mg/dL [facility] Comment: Indocyanine Green (ICG) may cause falsel y elevated bilirubin results. Total and direct bilirubin must not be measured from samples containing indocyanine green. False elevation of total bilirubin can b e seen in patients with IgG concentrations above 28 g/L. Bili Direct 0.2 <=0.3 mg/dL [facility] D IAGNOSTIC CENTER Comment: Indocyanine Green (ICG) may cau se falsely elevated bilirubin results. Total and direct bilirubin must not be measure d from samples containing indocyanine green. Bili Indirect 0.1 0.0 - 0.9 mg/dL RI MD [facility] DI[facility]NOSTIC [place] Specimen Anatomical Collection Method Collection Time Receive d Time (Source) Location / / Volume Laterality Blood 01/12/2022 10:00 01/12/2022 AM CDT 10:21 AM CDT Deshawn Ahuja MD LAB BLOOD ORDERABLES Performing Organization Address City/State/ZIP Code Phon e Number [facility] Unless otherwise noted, [place] [phone] [place] all lab tests performed by: Division of Pathology and Laboratory Medicine [address] [place] (ABNORMAL) Differential (01/12/2022 10:00 AM CDT)Only the most recent of44 resultswithin the time period is included. [facility] Neutrophil % 60.6 42.0 - [facility] 66.0 % DIAGNOSTIC CENTER Lymphocyte % 21.0 (L) 24.0 - [facility] 44.0 % DIAGNOSTIC [place] Monocyte % 12.9 (H) 2.0 - 7.0 [facility] % DIAGNOSTIC [place] Eosinophil % 4.0 1.0 - 4.0 [facility] DIAGNOSTIC [place] Basophil % 1.1 (H) 0.0 - 1.0 [facility] % DIAGNOSTIC CENTER IGRE % 0.4 0.0 - 0.4 [facility] DIAGNOSTIC CENTER Comment: IGRE % count includes Metamyelo cytes, Myelocytes, and Promyelocytes. Neutrophil Abs 1.65 (L) 1.70 - 7.30 K/uL RI [facility] Lymphocyte Abs 0.57 (L) 1.00 - 4.80 K/uL RI MD RAFFY PEREZ [facility] Monocyte Abs 0.35 0.08 - 0.70 K/uL RI [facility] Eosinophil Abs 0.11 0.04 - 0.40 K/uL [place] [facility] Basophil Abs 0.03 0.00 - 0.10 K/uL RI [facility] IG Abs 0.01 0.00 - 0.04 K/uL RI MD TASHI Trinidad [facility] Specimen Anatomical Collection Method Collection Time Receive d Time (Source) Location / / Volume Laterality Blood 01/12/2022 10:00 01/12/2022 AM CDT 10:16 AM CDT Deshawn Ahuja MD LAB BLOOD ORDERABLES Performing Organization Address City/[facility]/ZIP [facility] Phon e Number [facility]STIC Unless otherwise noted, [place], [place] [phone] [place] all lab tests performed by: Division of Pathology and Laboratory Medicine [address] (ABNORMAL) Sed Rate (01/12/2022 10:00 AM CDT) athologist Signature Sed Rate 20 (H) 0 - 9 mm/hr [facility] Specimen Anatomical Collection Method Collection Time Receive d Time (Source) Location / / Volume Laterality Blood 01/12/2022 10:00 01/12/2022 AM CDT 12:11 PM CDT Deshawn Ahuja MD LAB BLOOD ORDERABLES Performing Organization Address City/State/[facility] Phon e Number [facility] Unless otherwise noted, [place] [address] [place] all lab tests performed by: Division of Pathology and Laboratory Medicine [address] CRP (01/12/2022 10:00 AM CDT) athologist [facility] CRP 1.17 mg/L [facility] Comment: Reference ranges for HS CRP assay are as follows: Reference ranges when used to assess car diac risk: <1.00 mg/L Low cardiovascular risk 1.00-3.00 mg/L Average cardiovascular risk >3.00 mg/L High cardiovascular risk. Reference ranges when used to assess inf lammatory responses: Less than or equal to 10.00 mg/L. Specimen Anatomical Collection Method Collection Time Receive d Time (Source) Location / / Volume Laterality Blood 01/12/2022 10:00 01/12/2022 AM CDT 10:54 AM CDT Deshawn Ahuja MD LAB BLOOD ORDERABLES Performing Organization Address City/[facility]/ZIP [facility] Phon e Number [facility] Unless otherwise noted, [place] [address] [place] all lab tests performed by: Division of Pathology and Laboratory Medicine [address] [place] [address] BUN (01/12/2022 10:00 AM CDT)Only the most recent of48 resultswithin the time period is included. P athologist Signature BUN 17 6 - 23 [facility] mg/dL DIAGNOSTIC CENTER Specimen Anatomical Collection Method Collection Time Receive d Time (Source) Location / / Volume Laterality Blood 01/12/2022 10:00 01/12/2022 AM CDT 10:21 AM CDT Deshawn Ahuja MD LAB BLOOD ORDERABLES Performing Organization Address City/[facility] Phon e Number [facility] DIAGNOSTIC Unless otherwise noted, [place], [place] [phone] [place] all lab tests performed by: Division of Pathology and Laboratory Medicine [address] [place] [address] ALT (01/12/2022 10:00 AM CDT)Only the most recent of20 resultswithin the time period is included. P athologist Signature ALT 12 <=41 U/L [facility] Specimen Anatomical Collection Method Collection Time Receive d Time (Source) Location / / Volume Laterality Blood 01/12/2022 10:00 01/12/2022 AM CDT 10:21 AM CDT Deshawn Ahuja MD LAB BLOOD ORDERABLES Performing Organization Address City/[facility] Phon e Number [facility] DIAGNOSTIC Unless otherwise noted, [place], [place] [phone] [place] all lab tests performed by: Division of Pathology and Laboratory Medicine [address] [place] [address] Aspartate Aminotransferase (01/12/2022 10:00 AM CDT)Only the most recent of20 resultswithin the time period is included. athologist Signature AST 25 <=40 U/L [facility] Specimen Anatomical Collection Method Collection Time Receive d Time (Source) Location / / Volume Laterality Blood 01/12/2022 10:00 01/12/2022 AM CDT 10:21 AM CDT Deshawn Ahuja MD LAB BLOOD ORDERABLES Performing Organization Address City/[facility]/ZIP [facility] Phon e Number [facility] DIAGNOSTIC Unless otherwise noted, [address] all lab tests performed by: Division of Pathology and Laboratory Medicine [facility] ([facility] Total Protein (01/12/2022 10:00 AM CDT)Only the most recent of19 resultswithin the time period is included. [facility] Total Protein 5.8 (L) 6.4 - 8.3 [facility] g/dL DIAGNOSTIC CENTER Specimen Anatomical Collection Method Collection Time Receive d Time (Source) Location / / Volume Laterality Blood 01/12/2022 10:00 01/12/2022 AM CDT 10:21 AM CDT Deshawn Ahuja MD LAB BLOOD ORDERABLES Performing Organization Address [facility] Phon e Number [facility] DIAGNOSTIC Unless otherwise noted, [address] all lab tests performed by: Division of Pathology and Laboratory Medicine [facility] Alkaline Phosphatase (01/12/2022 10:00 AM CDT)Only the most recent of20 results within the time period is included. athologist [facility] Alk Phos 63 40 - 129 [facility] U/L DIAGNOSTIC CENTER Specimen Anatomical Collection Method Collection Time Receive d Time (Source) Location / / Volume Laterality Blood 01/12/2022 10:00 01/12/2022 AM CDT 10:21 AM CDT Deshawn Ahuja MD LAB BLOOD ORDERABLES Performing Organization Address City/[facility] Phon e Number [facility] DIAGNOSTIC Unless otherwise noted, [address] all lab tests performed by: Division of Pathology and Laboratory Medicine [address] (ABNORMAL) Glucose Level (01/12/2022 10:00 AM CDT)Only the most recent of46 resultswithin the time period is included. athologist Signature Glucose Level 119 (H) 70 - 99 [facility] mg/dL DIAGNOSTIC CENTER Comment: Effective 12/29/15, the glucose reference intervals have been updated based on [place] [employer] guidelines (Standards of Medical Care in Diabetes 2016. Diabetes Care 2016; 39: S13-S22). Fasting blood glucose: Normal: 70-99 mg/dL Impaired fasting glucose (increased risk for diabetes or pre-diabetes): 100- 125 mg/dL Diabetes mellitus: >/=126 mg/dL Random blood glucose: Normal: 70-199 mg/dL Note: Random glucose >100 mg/dL is assoc iated with increased risk for diabetes Specimen Anatomical Collection Method Collection Time Receive d Time (Source) Location / / Volume Laterality Blood 01/12/2022 10:00 01/12/2022 AM CDT 10:21 AM CDT Deshawn Ahuja MD LAB BLOOD ORDERABLES Performing Organization Address City/[facility] Phon e Number [facility] DIAGNOSTIC Unless otherwise noted, [address] all lab tests performed by: Division of Pathology and Laboratory Medicine [address] Calcium Level (01/12/2022 10:00 AM CDT)Only the most recent of32 resultswithin the time period is included. athologist Signature Calcium Lvl 9.5 8.4 - 10.2 [facility] mg/dL DIAGNOSTIC CENTER Specimen Anatomical Collection Method Collection Time Receive d Time (Source) Location / / Volume Laterality Blood 01/12/2022 10:00 01/12/2022 AM CDT 10:21 AM CDT Deshawn Ahuja MD LAB BLOOD ORDERABLES Performing Organization Address City/[facility] Phon e Number [facility] DIAGNOSTIC Unless otherwise noted, [address] all lab tests performed by: Division of Pathology and Laboratory Medicine [address] Albumin Level (01/12/2022 10:00 AM CDT)Only the most recent of20 resultswithin the time period is included. athologist Signature Albumin Lvl 3.5 3.5 - 5.2 [facility] gm/dL DIAGNOSTIC CENTER Specimen Anatomical Collection Method Collection Time Receive d Time (Source) Location / / Volume Laterality Blood 01/12/2022 10:00 01/12/2022 AM CDT 10:21 AM CDT Deshawn Ahuja MD LAB BLOOD ORDERABLES Performing Organization Address City/[facility]/ZIP Code Phon e Number [facility] DIAGNOSTIC Unless otherwise noted, [address] all lab tests performed by: Division of Pathology and Laboratory Medicine [address] [facility] (ABNORMAL) Electrolyte Panel (01/12/2022 10:00 AM CDT)Only the most recent of47 resultswithin the time period is included. athologist Signature Sodium Lvl 138 136 - 145 [facility] mEq/L DIAGNOSTIC CENTER Potassium Lvl 3.5 3.5 - 5.1 [facility] mEq/L DIAGNOSTIC CENTER Chloride 100 98 - 107 [facility] mEq/L DIAGNOSTIC CENTER CO2 34 (H) 22 - 29 [facility] mEq/L DIAGNOSTIC CENTER Anion Gap 4 4 - 14 [facility] mEq/L DIAGNOSTIC CENTER Specimen Anatomical Collection Method Collection Time Receive d Time (Source) Location / / Volume Laterality Blood 01/12/2022 10:00 01/12/2022 AM CDT 10:21 AM CDT Deshawn Ahuja MD LAB BLOOD ORDERABLES Performing Organization Address City/[facility]/ZIP Code Phon e Number [facility] DIAGNOSTIC Unless otherwise noted, [address] all lab tests performed by: Division of Pathology and Laboratory Medicine [facility] Modified Barium Swallow w Speech (12/30/2021 10:26 AM CDT)Only the most recent of4 resultswithin the time period is included. Anatomical Region Laterality Modality Neck Radio Fluoroscopy Specimen (Source) Anatomical Collection Method Collection Time Re ceived Time Location / / Volume Laterality 12/30/2021 10:39 AM CDT Impressions 12/30/2021 5:00 PM CDT 1. Tracheostomy tube present. Sensate aspiration with liquids reduced, but not eliminated with strategies. No evidence of laryngopharyngeal fistula. 2. Mild pharyngeal residue to liquids. 3. Larynx frozen and severely edematous. Hypopharynx and arytenoids edematous with likely shallow broad ulceration. 4. Pharyngeal contraction weakened bilat erally. Refer to speech pathology note for furth er details. 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 The patient was given barium mixed with a variety of consistencies to swallow by mouth under videofluoroscopy. Findings: Tracheostomy tube in place. Th ere was no nasopharyngeal reflux. Sensate aspiration was seen with thin liquids which was not eliminated with strategies. Sensate aspiration was seen with nectar which was reduced with modified supraglo ttic swallow. There was mild pharyngeal residue with liquids. The larynx was frozen and severely edematous. There was evidence of mucosal irregularity with edema in hypopharynx and arytenoids likely ulc eration, best seen on AP and lateral views. Pharyngeal contraction weakened bilaterally. There was no evidence of laryngopharyngeal fistula. 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 The patient was given barium mixed with a variety of consistencies to swallow by mouth under videofluoroscopy. Findings: Tracheostomy tube in place. Th ere was no nasopharyngeal reflux. Sensate aspiration was seen with thin liquids which was not eliminated with strategies. Sensate aspiration was seen with nectar which was reduced with modified supraglottic swallow. Ther e was mild pharyngeal residue with liquids. The larynx was frozen and severely edematous. There was evidence of mucosal irregularity with edema in hypopharynx and arytenoids likely ulceration, best seen on AP and lateral views. Pharyngeal contraction weakened bilaterally. There was no evidence of laryngopharyngeal fistula. IMPRESSION: 1. Tracheostomy tube present. Sensate as piration with liquids reduced, but not eliminated with strategies. No evidence of laryngopharyngeal fistula. 2. Mild pharyngeal residue to liquids. 3. Larynx frozen and severely edematous. Hypopharynx and arytenoids edematous with likely shallow broad ulceration. 4. Pharyngeal contraction weakened bilat erally. [facility] Ene Polk MD IMG FLUOROSCOPY ORDERABLES Tip Verification Central Vascular Access Device (12/28/2021 6:30 PM CDT)Only the most recent of2 resultswithin the time period is included. Narrative Romeo Brandt Jr., RN - 12/28/2021 6:30 PM CDT Romeo Brandt Jr., RN 12/28/2021 6:53 PM Central Vascular Access Device Tip Verif ication Performed by: Romeo Brandt Jr. RN Authorized by: Deshawn Ahuja MD CVAD Properties Date device placed: 12/28/2021 Placed by: Romeo Brandt RN Device placement location: [facility] Catheter Type: PICC Catheter lumen: Double lumen Vein location: Basilic Laterality: Right Tip Verification Properties Diagnostic image available: Chest xray Written diagnostic report available: Yes Tip location per report: Cavotrial zachary ction (Per Chest X-ray read by Fabrice Castro MD) Tip in good position and cleared for inf usion Deshawn Ahuja MD IV THERAPY ORDERABLES XR Chest 2 View Post Implant (12/28/2021 6:01 PM CDT)Only the most recent of2 resultswithin the time period is included. Anatomical Region Laterality Modality Chest Digital Radiography Specimen (Source) Anatomical Collection Method Collection Time Re ceived Time Location / / Volume Laterality 12/28/2021 6:22 PM CDT Impressions 12/28/2021 6:25 PM CDT Small left pleural effusion. Nodular opacities over lower lungs likel y represent nipple shadows in view of position and symmetry and follow-up can be performed. The right-sided central line terminates over the region of the cavoatrial junction. Narrative 12/28/2021 6:25 PM CDT FULL RESULT: Examination: Chest, 2 views, 12/28/2021 6 :01 PM Clinical History: Encounter for adjustme nt and management of vascular access device: Assess for active or metastatic intrathoracic disease. Clarify subsequent treatment strategy. Primary squamous cell carcinoma of larynx. Indication: Confirm PICC placement: Asse ss for active or metastatic intrathoracic disease. Clarify subsequent treatment strategy. Comparison: 12/09/2021 Technique: Posterior, lateral and dual-e nergy radiograph of the chest Findings: Lung parenchyma: Nodular opacities proje cting over the lower lungs bilaterally likely represent nipple shadows in view of symmetry and position. Follow-up can be performed. No acute airspace opacities. Nodes:There is no enlargement of the med iastinal or hilar regions to suggest underlying enlarged nodes. Cardiac: The cardiopericardial silhouett e is not enlarged. Pleura:Small left pleural effusion. The right-sided central line terminates over the region of the cavoatrial junction. The tracheostomy tube tip terminates approximately 7 cm from the keely. Degenerative changes of the spine. Procedure Note Fabrice Castro MD - 12/28/2021Formatt ing of this note might be different from the original. FULL RESULT: Examination: Chest, 2 views, 12/28/2021 6 :01 PM Clinical History: Encounter for adjustme nt and management of vascular access device: Assess for active or metastatic intrathoracic disease. Clarify subsequent treatment strategy. Primary squamous cell carcinoma of larynx. Indication: Confirm PICC placement: Asse ss for active or metastatic intrathoracic disease. Clarify subsequent treatment strategy. Comparison: 12/09/2021 Technique: Posterior, lateral and dual-e nergy radiograph of the chest Findings: Lung parenchyma: Nodular opacities proje cting over the lower lungs bilaterally likely represent nipple shadows in view of symmetry and position. Follow-up can be performed. No acute airspace opacities. Nodes:There is no enlargement of the med iastinal or hilar regions to suggest underlying enlarged nodes. Cardiac: The cardiopericardial silhouett e is not enlarged. Pleura:Small left pleural effusion. The right-sided central line terminates over the region of the cavoatrial junction. The tracheostomy tube tip terminates approximately 7 cm from the keely. Degenerative changes of the spine. IMPRESSION: Small left pleural effusion. Nodular opacities over lower lungs likel y represent nipple shadows in view of position and symmetry and follow-up can be performed. The right-sided central line terminates over the region of the cavoatrial junction. Deshawn Ahuja MD IMG DIAGNOSTIC IMAGING ORDER YOVANI Insert Vascular Device: PICC (12/28/2021 5:25 PM CDT)Only the most recent of2 resultswithin the time period is included. Narrative Romeo Brandt Jr., RN - 12/28/2021 5:25 PM CDT Romeo Brandt Jr., RN 12/28/2021 6:01 PM Insertion of 4 Fr double lumen right bas ilic PICC Date/Time: 12/28/2021 5:25 PM Proceduralist Type: RN Proceduralist: Romeo Brandt Jr., RN Ordered By: Deshawn Ahuja MD Procedure Location: Outpatient Procedure Clinic Pre- Procedure diagnosis: Squamous cell carcinoma of larynx Post-Procedure diagnosis: unchanged Indication for Procedure: Vascular Acces s Pre-Procedure Evaluation Patient examined pre-procedure and asses sment (including allergies, labs, imaging, history and physical exam) perf ormed. Informed consent obtained prior to procedure, the risks, benefits, and alternative discussed with patient/designated senior customer service representative. Pre-p rocedure the patient was alert. Time out: universal protocol time out pe rformed and documented. Anesthesia Anesthesia: local infiltration Local anesthetic: lidocaine 1% without e pinephrine Anesthetic total (ml): 5 Sedation Patient sedated?: no Procedure Site preparation: Hand hygiene performed prior to insertio n by all persons performing/assisting with procedure. I nsertion site prepped and cleaned with asceptic technique (Sterile devices , and equipment used. Doors closed and traffic minimized during procedure). Insertion site prepped with chlorhexidine gluconate (Standard). Sk in prep agent completely dried prior to procedure according to manufact urer guidelines. Maximum sterile barriers were used- sterile gloves, ster ile gown, cap, mask and head to toe sterile cover. PICC catheter inser tion tray used. The patient was placed in a Flat/Supinep osition. The insertion site was anesthetized with lidocaine 1% without epinephrine via subcutaneous needle . A high level disinfected ultrasound probe with sterile cover was used for guidance . The ultrasound demonstrated compressibility of theright basilic vein . Venous access obtained. A permanent record of the ultrasound-guide d vessel puncture image has been stored. Sterile Seldinger technique us ed (modified). MicroIntroducer with sheath inserted. Drip test performed to confirm venous pl acement. Dilator inserted gently over guidewire. A new 4 Fr double lumen power rated 0 cm external right basilic PICC was inserted successfully with good flow and blood return in all lumens. Catheter Internal Length (cm): 39 Catheter Trim Length (cm): 39 Number of insertion attempt(s) was 1. Guidewire and dilator removed, examined, and found to be intact. Estimated blood loss was minimal. Specimen Removed: No. Post Procedure Each lumen evacuated of air and flushed with sterile saline. Needleless connector and IV tubing attached to cath eter. Catheter sutured/secured in place, the s ite cleaned and sterile transparent dressing applied with biopat ch and the dressing labeled with date, time, and initial. Catheter re-ass essed and blood return through all lumens. Tip Verification: The right basilic PICC. Placement and ti p verified using tip biscuit factory worker. P wave identified with placement and pendi ng catheter tip clearance, see Tip Verification smart note Complications: no immediate complication Patient Condition: patient does not repo rt adverse symptoms, patient remained hemodynamically stable througho ut the procedure, patient is warm and well perfused and patient tolerated the procedure well with no immediate complications Responsiveness: alert Patient Disposition: discharged via [facility] lchair with caregiver with instructions Comments Patient advised to proceed to chest x-ra y for tip verification and then come back to VAP unit to confirm placeme nt prior to PICC use. Deshawn Ahuja MD IV THERAPY ORDERABLES Vascular Access Ultrasound- VAP RN Device (12/28/2021 3:17 PM CDT)Only the most recent of3 resultswithin the time period is included. Specimen (Source) Anatomical Location Collection Method / Collectio n Time Received Time / Laterality Volume Narrative Systemgenerated, Documentation - 022 3:17 PM CDT This procedure requires no interpretatio n from the radiologist. Deshawn Ahuja MD IMG NON DI ORDERABLES (ABNORMAL) Lower Respiratory Culture w/Gram Stain (12/16/2021 9:21 AM CDT)Only the most recent of3 resultswithin the time period is included. Component Value Ref Test Analysis Performed At [facility] gist Range Method Time Signature Final Report Moderate Presumptive Pseudomonas aeruginosa RI ... ANUJA Moderate Pseudomonas aeruginosa of a second type. CANCER ... CENTER Normal site shayna present. (A) Path Review The results have been review ed and electronically signed by Pathologist: ROMAN Owens MD, PhD #[id number] [place] (A) [facility] Gram Stain Many WBC's seen RI Report Few Gram Positive Cocci in pairs [place] (A) [facility] Organism Pseudomonas ROMAN CRAWLEY aeruginosa (A) [facility] Organism Pseudomonas RI aeruginosa (A) [facility] Specimen Anatomical Collection Method Collection Time Receive d Time (Source) Location / / Volume Laterality Tracheal 12/16/2021 9:21 AM 2 Aspirate CDT 10:55 AM CDT Narrative RI [facility] - 2 4:46 PM CDT swab from trach site per KWAN amato Organism Antibiotic Method Susceptibility Pseudomonas *STEVE expressed in MINIMUM INHIBITORY STEVE: MINT aeruginosa mcg/mL CONCENTRATION Pseudomonas Piperacillin/Tazobacta MINIMUM INHIBITORY 16: Han sceptible aeruginosa m CONCENTRATION Pseudomonas Ceftazidime MINIMUM INHIBITORY 4: Susceptibl e aeruginosa CONCENTRATION Pseudomonas Cefepime MINIMUM INHIBITORY 4: Susceptibl e aeruginosa CONCENTRATION Pseudomonas Imipenem MINIMUM INHIBITORY 1: Susceptibl e aeruginosa CONCENTRATION Pseudomonas Meropenem MINIMUM INHIBITORY 1: Susceptibl e aeruginosa CONCENTRATION Pseudomonas Amikacin MINIMUM INHIBITORY 4: Susceptibl e aeruginosa CONCENTRATION Pseudomonas Tobramycin MINIMUM INHIBITORY <=1: Suscepti ble aeruginosa CONCENTRATION Pseudomonas Ciprofloxacin MINIMUM INHIBITORY 2: Resistant aeruginosa CONCENTRATION Pseudomonas Levofloxacin MINIMUM INHIBITORY 4: Resistant aeruginosa CONCENTRATION Pseudomonas *STEVE expressed in MINIMUM INHIBITORY STEVE: MINT aeruginosa mcg/mL CONCENTRATION Pseudomonas Piperacillin/Tazobacta MINIMUM INHIBITORY <=4: S usceptible aeruginosa m CONCENTRATION Pseudomonas Ceftazidime MINIMUM INHIBITORY 2: Susceptibl e aeruginosa CONCENTRATION Pseudomonas Cefepime MINIMUM INHIBITORY <=1: Suscepti ble aeruginosa CONCENTRATION Pseudomonas Imipenem MINIMUM INHIBITORY <=0.25: Susce ptible aeruginosa CONCENTRATION Pseudomonas Meropenem MINIMUM INHIBITORY 0.5: Suscepti ble aeruginosa CONCENTRATION Pseudomonas Amikacin MINIMUM INHIBITORY <=2: Suscepti ble aeruginosa CONCENTRATION Pseudomonas Tobramycin MINIMUM INHIBITORY <=1: Suscepti ble aeruginosa CONCENTRATION Pseudomonas Ciprofloxacin MINIMUM INHIBITORY 0.5: Suscepti ble aeruginosa CONCENTRATION Pseudomonas Levofloxacin MINIMUM INHIBITORY 1: Susceptibl e aeruginosa CONCENTRATION Ene Polk MD MICROBIOLOGY - GENERAL ORDER YOVANI Performing Organization Address City/State/ZIP Code Phon e Number [facility] Unless otherwise noted, [place] [address] CENTER all lab tests performed by: Division of Pathology and Laboratory Medicine [address] [facility] [address] Soft Tissue Neck with Contrast (12/16/2021 7:03 AM CDT)Only the most recent of5 resultswithin the time period is included. Anatomical Region Laterality Modality Neck Computed Tomography Specimen (Source) Anatomical Collection Method Collection Time Re ceived Time Location / / Volume Laterality 12/16/2021 7:30 AM CDT Impressions 12/16/2021 8:03 AM CDT 1. 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 2. Prominent radiation-related edema. 3. No findings to suggest local or herrera recurrence. 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 Abnormal finding on diagnostic imaging o f other part of digestive tract Indication: Neoplasm detection or diagno stic workup, No neck pain, Cancer staging or restaging Comparison: 11/17/2021. Technique: Axial images were acquired th rough the soft tissues of the neck with intravenous contrast. Sagittal and coronal reconstructions were created. Findings: Radiation-related changes are prominent with significant swelling of the laryngeal and pharyngeal soft tissues. There is a suspected fistulous communication between the interarytenoid larynx with the po st cricoid hypopharynx marked on series 3, images 107 and 108 as well as series 2, image 110. The arytenoid cartilages may be exposed. Focal edema is present in the right piriform sinus with some mucosa l enhancement marked on series 2, image 116. The posterior cricoid arch appears disrupted posteriorly. The findings are similar when compared with 11/17/2021. A tracheostomy tube is in place. There are no findings to suggest recurre nce in the left supraglottic larynx. No suspicious cervical adenopathy. Calcified and noncalcified plaque involv ing the distal right common carotid artery with prominent calcified plaque at carotid bifurcation. No nodules in the visualized lung apice s. 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 Abnormal finding on diagnostic imaging o f other part of digestive tract Indication: Neoplasm detection or diagno stic workup, No neck pain, Cancer staging or restaging Comparison: 11/17/2021. Technique: Axial images were acquired th rough the soft tissues of the neck with intravenous contrast. Sagittal and coronal reconstructions were created. Findings: Radiation-related changes are prominent with significant swelling of the laryngeal and pharyngeal soft tissues. There is a suspected fistulous communication between the interarytenoid larynx with the post cricoid hypopharynx marked on series 3, images 1 07 and 108 as well as series 2, image 110. The arytenoid cartilages may be exposed. Focal edema is present in the right piriform sinus with some mucosal enhancement marked on series 2, image 116. The posterior cricoid arch appears disrupted posteriorly. The findings are similar when compared with 11/17/2021. A tracheostomy tube is in place. There are no findings to suggest recurre nce in the left supraglottic larynx. No suspicious cervical adenopathy. Calcified and noncalcified plaque involv ing the distal right common carotid artery with prominent calcified plaque at carotid bifurcation. No nodules in the visualized lung apice s. IMPRESSION: 1. 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 2. Prominent radiation-related edema. 3. No findings to suggest local or herrera recurrence. Ene Polk MD IMG CT ORDERABLES X-ray Chest 2 Views (12/09/2021 9:09 AM CDT)Only the most recent of2 results within the time period is included. Anatomical Region Laterality Modality Chest Digital Radiography Specimen (Source) Anatomical Collection Method Collection Time Re ceived Time Location / / Volume Laterality 12/09/2021 9:17 AM CDT Impressions 12/09/2021 9:19 AM CDT Minor residual left basilar atelectasis. Tracheostomy in situ. Narrative 12/09/2021 9:19 AM CDT FULL RESULT: Examination: XR CHEST 2 VW, 12/09/2021 9:0 9 AM Clinical History: Chronic obstructive pu lmonary disease with acute exacerbation Indication: Laryngeal carcinoma Comparison: Technique: Posteroanterior, lateral and dual-energy radiographs of the chest. Findings: Tracheostomy in situ. Improving left bas ilar suspected atelectasis. Calcified right lower lung granuloma. There is no pleural effusion or pneumothorax. There is no mediastinal or hilar adenopathy. Cardiac silhouette is normal. Procedure Note Stefan Nunes MD - 12/09/2021Formatti ng of this note might be different from the original. FULL RESULT: Examination: XR CHEST 2 VW, 12/09/2021 9:0 9 AM Clinical History: Chronic obstructive pu lmonary disease with acute exacerbation Indication: Laryngeal carcinoma Comparison: Technique: Posteroanterior, lateral and dual-energy radiographs of the chest. Findings: Tracheostomy in situ. Improving left bas ilar suspected atelectasis. Calcified right lower lung granuloma. There is no pleural effusion or pneumothorax. There is no mediastinal or hilar adenopathy. Cardiac silhouette is normal. IMPRESSION: Minor residual left basilar atelectasis. Tracheostomy in situ. Kong Prieto MD IMG DIAGNOSTIC IMAGING ORDER YOVANI (ABNORMAL) POC Glucose Screen (11/17/2021 10:16 PM CDT)Only the most recent of 103 resultswithin the time period is included. athologist Signature POC Glucose 129 (H) 70 - 99 POC TELCOR mg/dL Comment: RN Notified Capillary blood samples, e.g. obtained b y fingerstick, may have inaccurate results in patients with decreased peripheral blood flow. Method description: All results are ronald ured using Electrochemistry test methodology. The glucose in the sample mixes with the reagents on the test strip. The reaction produces an electric current. The amount of current produced is proportion al to the glucose concentration in the blood. PO Sample Type Capillary POC TELCOR Performing Lab [facility] POC TELCO R Comment: [facility] Clinical Lab, [facility] [facility], [place] [address]; Lab Direct or: Loida Chavez MD Specimen Anatomical Collection Method Collection Time Receive d Time (Source) Location / / Volume Laterality Blood 11/17/2021 10:16 11/17/2021 PM CDT 10:16 PM CDT Hilario Pardo MD POCT ORDERABLES - DEVICE Performing Organization Address City/[facility]/ZIP Code Phon e Number POC TELCOR (ABNORMAL) Urinalysis w/Microscopic if Indicated (11/17/2021 9:40 PM CDT)Only the most recent of2 resultswithin the time period is included. [facility] gist Method Time Signature UA Color Straw Straw-Yel [facility] UA Appear Clear Clear [facility] UA Glucose NEG NEG mg/dL [facility] UA Bili NEG NEG [facility] UA Ketones NEG NEG mg/dL [facility] UA Spec Grav 1.049 (H) 1.003 - [facility] 1.035 [facility] UA Blood NEG NEG [facility] UA pH 7.0 5.0 - 9.0 [facility] UA Protein NEG NEG mg/dL [facility] UA Urobilinogen NEG NEG [facility] UA Nitrite NEG NEG [facility] UA Leuk Est NEG NEG [facility] UA Comment See Comment [facility] Comment: No microscopic exam performed, physiochemical findings are negative Specimen Anatomical Collection Method Collection Time Receive d Time (Source) Location / / Volume Laterality Urine 11/17/2021 9:40 PM 9:48 CDT PM CDT Kodi Nicole MD URINE ORDERABLES Performing Organization Address City/State/ZIP Code Phon e Number [facility] Unless otherwise noted, [place] [address] CENTER all lab tests performed by: Division of Pathology and Laboratory Medicine [facility] [address] Urine Culture (11/17/2021 9:40 PM CDT)Only the most recent of2 resultswithin the time period is included. Component Value Ref Test Analysis Performed At [facility] gist Range Method Time Signature Final Report No growth [facility] Path Review - The results have been review ed and electronically signed by Pathologist: RI Urine BERTA BRADY MD #[id number] [facility] Specimen Anatomical Collection Method Collection Time Receive d Time (Source) Location / / Volume Laterality Urine, Clean 11/17/2021 9:40 PM 2 Catch CDT 11:43 PM CDT Kodi Nicole MD MICROBIOLOGY - GENERAL ORDER YOVANI Performing Organization Address City/State/ZIP Code Phon e Number [facility] Unless otherwise noted, [address] all lab tests performed by: Division of Pathology and Laboratory Medicine [facility] (ABNORMAL) ABG (11/17/2021 9:33 PM CDT)Only the most recent of5 resultswithin the time period is included. athologist Signature pH Art 7.41 7.35 - 7.45 [facility] Comment: Results are corrected for a bod y temp of 37C. pCO2 Art 51.0 (H) 35.0 - 48.0 mmHg RI MD [facility] pO2 Art 31 (C) 83 - 108 mmHg RI [facility] HCO3 Art 32 (H) 21 - 28 mmol/L [facility] Base Excess Art 6 (H) -2 - 3 mmol/L RI MD [facility] O2 Sat Art 58 (L) 95 - 99 % [facility] Specimen Anatomical Collection Method Collection Time Receive d Time (Source) Location / / Volume Laterality Blood 11/17/2021 9:33 PM 2 9:39 CDT PM CDT Hilario Pardo MD LAB BLOOD ORDERABLES Performing Organization Address City/[facility]/ZIP Code Phon e Number [facility] Unless otherwise noted, [address] all lab tests performed by: Division of Pathology and Laboratory Medicine [facility] [place] [address] Chest Pulmonary Embolism with Contrast (11/17/2021 7:30 PM CDT)Only the most recent of2 resultswithin the time period is included. Anatomical Region Laterality Modality Chest Computed Tomography Specimen (Source) Anatomical Collection Method Collection Time Re ceived Time Location / / Volume Laterality 11/17/2021 7:32 PM CDT Impressions 11/17/2021 7:57 PM CDT 1. No pulmonary embolism. No CT evidence of right heart strain. 2. Interval partial resolution of band like opacity in the lingula and masslike consolidation in the posterior aspect of the left lower lobe since 09/20/2021 comparison exam. This may represent resolving atelectasis, aspiration, and/or pneumonia. I personally reviewed these image(s) nelia thomas with the resident's/fellow's interpretations, certify that if a procedure was performed I was physically present, and agree with the final report. Narrative 11/17/2021 7:57 PM CDT FULL RESULT: Examination: CT CHEST PULMONARY EMBOLISM W CONTRAST, 11/17/2021 7:30 PM Clinical History: 71-year-old male with primary squamous cell carcinoma of the larynx. Indication: Cancer complication or comor bidity assessment Comparison: Comparison is made to CT lino st with contrast from 09/20/2021, CT chest pulmonary embolism protocol from 07/08/2021, and whole body PET/CT from 10/21/2021 Technique: Spiral CT of the chest is per formed using intravenous contrast. Findings: Lines and tubes: A tracheostomy is noted with tip in the trachea near the thoracic inlet. Lower neck: Imaged portions of the thyro id are unremarkable. Please see concurrently obtained and separately dictated CT neck soft tissue for additional cervical findings. Pulmonary arteries: Pulmonary artery opa cification is good. No pulmonary embolism is identified. The main pulmonary trunk is normal in diameter. Cardiac: The heart size is normal. No CT evidence of right heart strain. A few scattered thoracic aortic atherosclerotic calcifications are present. The thoracic aorta is normal in diameter. Lymph nodes: No supraclavicular, mediast inal, hilar, or axillary lymphadenopathy. Lungs and airways: Layering secretions a re seen in the trachea near the keely (series 13 image 65). Mild centrilobular predominant emphysematous changes of both upper lobes. Minimal decrease in the siz e of band like opacity within the lingul a (series 13 image 117). Decreasing masslike consolidation in the posterior aspect of the left lower lobe (series 13 image 146) since 09/20/2021 exam. The appearan ce is more similar to July now. This may represent resolving atelectasis aspiration, and/or pneumonia. Interval improvement in groundglass opacities in the left lower lobe superior segment seen on 09/20/2021. Pleural spaces: No pleural effusions or pneumothorax. Bones and soft tissues: No aggressive os seous lesions. Multilevel anterior vertebral body osteophytes of the thoracic spine. No soft tissue abnormalities. Upper abdomen: Percutaneous gastrostomy tube is seen within the distal stomach. Imaged portions of the liver and bilateral adrenal glands are unremarkable. The spleen is heterogeneous in appearance due to phase of contrast. Cholecystectomy. Procedure Note Jermain Carlos MD - 11/17/2021Formatt ing of this note might be different from the original. FULL RESULT: Examination: CT CHEST PULMONARY EMBOLISM W CONTRAST, 11/17/2021 7:30 PM Clinical History: 71-year-old male with primary squamous cell carcinoma of the larynx. Indication: Cancer complication or comor bidity assessment Comparison: Comparison is made to CT lino st with contrast from 09/20/2021, CT chest pulmonary embolism protocol from 07/08/2021, and whole body PET/CT from 10/21/2021 Technique: Spiral CT of the chest is per formed using intravenous contrast. Findings: Lines and tubes: A tracheostomy is noted with tip in the trachea near the thoracic inlet. Lower neck: Imaged portions of the thyro id are unremarkable. Please see concurrently obtained and separately dictated CT neck soft tissue for additional cervical findings. Pulmonary arteries: Pulmonary artery opa cification is good. No pulmonary embolism is identified. The main pulmonary trunk is normal in diameter. Cardiac: The heart size is normal. No CT evidence of right heart strain. A few scattered thoracic aortic atherosclerotic calcifications are present. The thoracic aorta is normal in diameter. Lymph nodes: No supraclavicular, mediast inal, hilar, or axillary lymphadenopathy. Lungs and airways: Layering secretions a re seen in the trachea near the keely (series 13 image 65). Mild centrilobular predominant emphysematous changes of both upper lobes. Minimal decrease in the size of band like opacity within the lingula (series 13 im age 117). Decreasing masslike consolidation in the posterior aspect of the left lower lobe (series 13 image 146) since 09/20/2021 exam. The appearance is more similar to July now. This may represent resolvi ng atelectasis aspiration, and/or pneumonia. Interval improvement in groundglass opacities in the left lower lobe superior segment seen on 09/20/2021. Pleural spaces: No pleural effusions or pneumothorax. Bones and soft tissues: No aggressive os seous lesions. Multilevel anterior vertebral body osteophytes of the thoracic spine. No soft tissue abnormalities. Upper abdomen: Percutaneous gastrostomy tube is seen within the distal stomach. Imaged portions of the liver and bilateral adrenal glands are unremarkable. The spleen is heterogeneous in appearance due to phase of contrast. Cholecystectomy. IMPRESSION: 1. No pulmonary embolism. No CT evidence of right heart strain. 2. Interval partial resolution of bandli ke opacity in the lingula and masslike consolidation in the posterior aspect of the left lower lobe since 09/20/2021 comparison exam. This may represent resolving atelectasis, aspiration, and/or pneumonia. I personally reviewed these image(s) nelia ng with the resident's/fellow's interpretations, certify that if a procedure was performed I was physically present, and agree with the final report. Kodi Nicole MD IMG CT ORDERABLES (ABNORMAL) POC VBG+Lac (11/17/2021 2:40 PM CDT) P athologist Signature POC VB pH 7.44 (H) 7.31 - POC TELCOR 7.41 POC VB pCO2 48 41 - 51 POC [facility] mmHg POC VB pO2 23 mmHg POC [facility] POC VB TCO2 34 (H) 24 - 29 POC [facility] mEq/L POC VB Bicarb 32 (H) 23 - 28 POC [facility] mmol/L POC VB Base Ex 7 (H) -2 - 3 POC [facility] mmol/L POC VB O2 Sat 41 % POC [facility] POC VB LAC 0.8 (L) 0.9 - 1.7 POC [facility] mmol/L Comment: Method description: The i-STAT is an husam lyzer used for in vitro quantification of various analytes in whole blood. The device uses a single disposable cartridge which contains microfabricated sensors, a calibration solution, fluidics system, and a waste chamber. Each test cartridge contains ch emically sensitive biosensors on a silicon chip that are configured to perform specific tests. The microfabricated sensors measure analyte concentration by an electrochemical assay. POC Sample Type Venous POC TELCOR POC Clean Dev Yes POC TELCOR Performing Lab [facility] POC TELCO R Comment: [facility] Clinical Lab, [facility] [facility], [place] [address]; Lab Direct or: Loida Chavez MD Specimen Anatomical Collection Method Collection Time Receive d Time (Source) Location / / Volume Laterality Blood 11/17/2021 2:40 PM 2 2:40 CDT PM CDT Jessicataurus Duran Pardo MD POCT ORDERABLES - DEVICE Performing Organization Address City/State/ZIP Code Phon e Number POC T[facility]COR COVID-19 (SARS-CoV-2)Asymptomatic-LT (11/17/2021 2:37 PM CDT)Only the most recent of6 resultswithin the time period is included. [facility] Method Time Signature COVID19 Not Detected Not Detected [place] (SARS-CoV-2) [facility] COVID19 SARS Pre-OR [place] Indication Procedure [facility] Covid 19 See Note [place] Comment [facility] Comment: The rufino SARS-CoV-2 nucleic acid test f or use on the rufino Alyson System is a real-time RT-PCR assay intended for the qualitative detection of SARS-CoV-2 (COVID-19) viral RNA in nasopharyngeal swabs from either individuals suspected of COVID-1 9 by their healthcare provider or from any individu al, including individuals without symptoms or other reasons to suspect COVID-19. A fact sheet for patients provided by the felt strip finisher ([employer]) can be reviewed at: https://www.fda.gov/media/559859/downloa d. A fact sheet for Health Care providers is provided by the felt strip finisher ([employer]) and can be reviewed at: https://www.fda.gov/media/113724/download Results must be interpreted within the c ontext of all relevant clinical and laboratory findings and should not form the sole basis for a diagnosis or treatment decision. Positive results do not rule out bacterial infection or co- infection with other viruses. Negative results do not preclud e SARS-CoV-2 infection and must be combined with clinical observations, patient history, and/or epidemiological information. This assay has been authorized by the [facility] for use only under Emergency Use Authorization (EUA) in laboratories that have been CLIA-certified to perform moderate-complexity and high-complexity tests. The Microbiology Laboratory at [facility], CLIA Accreditation #[id number] a nd CAP Accreditation #[id number], verified the performance characteristics of this assay. Internal controls are used to monitor all stages of the test process. Specimen (Source) Anatomical Collection Method Collection Time Re ceived Time Location / / Volume Laterality Nasopharyngeal Swab 11/17/2021 2:37 11/17 PM CDT 2:50 PM CDT Kodi Nicole MD MICROBIOLOGY - GENERAL ORDER YOVANI Performing Organization Address City/[facility] Phon e Number [facility] Unless otherwise noted, [address] all lab tests performed by: Division of Pathology and Laboratory Medicine [address] [place] [address] Procalcitonin (PCT) (11/17/2021 2:37 PM CDT)Only the most recent of2 results within the time period is included. athologist Signature Procalcitonin 0.07 <=0.08 [facility] ng/mL [facility] CENTER Comment: Procalcitonin > 2.00 ng/mL: Procalcit onin levels above 2.00 ng/mL are highly suggestive of a high risk for systematic bacterial infection/ severe sepsis and/or septic shock. Procalcitonin < 0.50 ng/mL: Procalcito gregory levels below 0.50 ng/mL are at low risk for progression to severe sepsis and/ or septic shock. Procalcitonin (ProCT) between 0.15 and 2 .0 ng/mL do not exclude infection, because localized infections (without systemic signs) may be associated with such low levels. Results greater than 400 ng/mL may not b e reliable due to the matrix effect with extended dilution as it exceeds the felt strip finisher's recommended limit. Caution should be exercised when interpreting such values and done in conjunction with clinical context. Specimen Anatomical Collection Method Collection Time Receive d Time (Source) Location / / Volume Laterality Blood 11/17/2021 2:37 PM 2:47 CDT PM CDT Kodi Nicole MD LAB BLOOD ORDERABLES Performing Organization Address [facility] Phon e Number [facility] CANCER Unless otherwise noted, [address] all lab tests performed by: Division of Pathology and Laboratory Medicine [address] [place] [address] (ABNORMAL) Cardiac Panel (11/17/2021 2:37 PM CDT)Only the most recent of3 resultswithin the time period is included. athologist Signature CK 50 39 - 308 [facility] U/L [facility] CK MB <2.0 <=10.4 [facility] ng/mL [facility] Troponin T 36 (H) <=18 ng/L [facility] Comment: < 19 ng/L Suggest retest at 3 to 6 hours later to rule out myocardial infarction >= 19 to <=52 ng/L Pos sible myocardial injury. Suggest retest at 3 hours. - a change of < 20 ng/L, retest at 6 hours - a change of >= 20 ng/L, suggestive of myocardial infarction > 52 ng/L Suggestive of myocardial infarction Critical value will be reported when cTn T is > 52 ng/L and only reported for the first in a series. Hemolyzed specimens with Hemolysis Index >100 (100 mg/dl or moderate hemolysis) may cause interferences and falsely low results. Specimen Anatomical Collection Method Collection Time Receive d Time (Source) Location / / Volume Laterality Blood 11/17/2021 2:37 PM 2 9:25 CDT PM CDT Kodi Nicole MD LAB BLOOD ORDERABLES Performing Organization Address City/State/[facility] Phon e Number [facility] CANCER Unless otherwise noted, [address] all lab tests performed by: Division of Pathology and Laboratory Medicine [facility]5 [facility] aPTT (11/17/2021 2:37 PM CDT)Only the most recent of7 resultswithin the time period is included. athologist [facility] aPTT 30.0 22.8 - 34.2 [facility](s) [facility] Specimen Anatomical Collection Method Collection Time Receive d Time (Source) Location / / Volume Laterality Blood 11/17/2021 2:37 PM 2 2:44 CDT PM CDT Kodi Nicole MD LAB BLOOD ORDERABLES Performing Organization Address City/State/ZIP [facility] Phon e Number [facility] CANCER Unless otherwise noted, [address] all lab tests performed by: Division of Pathology and Laboratory Medicine [address] [place] (ABNORMAL) NT-Pro BNP (In-House) (11/17/2021 2:37 PM CDT)Only the most recent of 4 resultswithin the time period is included. P athologist Signature NT ProBNP 168 (H) <=125 pg/mL [facility] Specimen Anatomical Collection Method Collection Time Receive d Time (Source) Location / / Volume Laterality Blood 11/17/2021 2:37 PM 2 9:28 CDT PM CDT Kodi Nicole MD LAB BLOOD ORDERABLES Performing Organization Address [facility] Phon e Number [facility] CANCER Unless otherwise noted, [address] all lab tests performed by: Division of Pathology and Laboratory Medicine [address] [facility] Blood Culture (11/17/2021 2:37 PM CDT)Only the most recent of3 resultswithin the time period is included. Component Value Ref Test [facility] Range Method Time Signature Final Report No growth [facility] Path Review - Culture yield may be affecte d by sample quality, prior treatment, and transportation conditions. RI Bottle/Isolat ... ANUJA or The results have been reviewed and electronically signed b y Pathologist: CANCER Amaury Sinha MD, PhD #[id number] C ENTER Specimen Anatomical Collection Method Collection Time Receive d Time (Source) Location / / Volume Laterality Blood (Periph 11/17/2021 2:37 PM 11/18/19 22 3:41 Venous Right) CDT PM CDT Comment: right Narrative [facility] - 2 4:11 AM CDT Short draw may invalidate quantitative b lood culture results. Kodi Nicole MD MICROBIOLOGY - GENERAL ORDER YOVANI Performing Organization Address City/[facility] Phon e Number [facility] CANCER Unless otherwise noted, [address] all lab tests performed by: Division of Pathology and Laboratory Medicine [address] [facility] (ABNORMAL) Prothrombin Time with INR (11/17/2021 2:37 PM CDT)Only the most recent of8 resultswithin the time period is included. P athologist Signature PT 14.2 (H) 11.5 - 13.9 [facility](s) CANCER CENTER INR 1.18 (H) 0.90 - 1.10 [facility] Specimen Anatomical Collection Method Collection Time Receive d Time (Source) Location / / Volume Laterality Blood 11/17/2021 2:37 PM 2 2:44 CDT PM CDT Kodi Nicole MD LAB BLOOD ORDERABLES Performing Organization Address [facility] Phon e Number [facility] CANCER Unless otherwise noted, [address] all lab tests performed by: Division of Pathology and Laboratory Medicine [address] [place] Phosphorus Level (11/17/2021 2:37 PM CDT)Only the most recent of45 resultswithin the time period is included. P athologist Signature Phosphorus 4.1 2.5 - 4.5 [facility] mg/dL [facility] Specimen Anatomical Collection Method Collection Time Receive d Time (Source) Location / / Volume Laterality Blood 11/17/2021 2:37 PM 2 2:47 CDT PM CDT Kodi Nicole MD LAB BLOOD ORDERABLES Performing Organization Address [facility] Phon e Number [facility] CANCER Unless otherwise noted, [address] all lab tests performed by: Division of Pathology and Laboratory Medicine [address] [place] Magnesium Level (11/17/2021 2:37 PM CDT)Only the most recent of45 resultswithin the time period is included. P athologist Signature Magnesium 1.9 1.6 - 2.6 [facility] mg/dL [facility] Specimen Anatomical Collection Method Collection Time Receive d Time (Source) Location / / Volume Laterality Blood 11/17/2021 2:37 PM 2 2:47 CDT PM CDT Kodi Nicole MD LAB BLOOD ORDERABLES Performing Organization Address [facility] Phon e Number [facility] CANCER Unless otherwise noted, [address] all lab tests performed by: Division of Pathology and Laboratory Medicine [address] [place] Sodium Level (11/10/2021 2:27 PM CDT) P athologist Signature Sodium Lvl 138 136 - 145 [facility] mEq/L [facility] Specimen Anatomical Collection Method Collection Time Receive d Time (Source) Location / / Volume Laterality Blood 11/10/2021 2:27 PM 2 2:47 CDT PM CDT Ene Polk MD LAB BLOOD ORDERABLES Performing Organization Address City/[facility]/ZIP Code Phon e Number [facility] CANCER Unless otherwise noted, [address] all lab tests performed by: Division of Pathology and Laboratory Medicine [address] [place] [address] General Laboratory Add-On Test (11/10/2021 9:06 AM CDT)Only the most recent of2 resultswithin the time period is included. athologist Signature Ordered Test Not [facility] CANCER LACLEDE Comment: duplicate see [phone], con firmed w/ Shirley Mcghee. 11/10/2021 9:19:15 AM CDT jpa Test Needed NT proBNP [facility] Specimen Anatomical Collection Method Collection Time Receive d Time (Source) Location / / Volume Laterality Existing 11/10/2021 9:06 AM 2 9:06 CDT AM CDT Shirley Mcghee CORPORATE ASSOCIATE ATTORNEY LAB BLOOD ORDERABLES Performing Organization Address City/[facility]/ZIP Code Phon e Number [facility] CANCER Unless otherwise noted, [address] all lab tests performed by: Division of Pathology and Laboratory Medicine [address] [place] [address] X-ray Chest 1 View (11/08/2021 5:54 PM CDT)Only the most recent of5 results within the time period is included. Anatomical Region Laterality Modality Chest Digital Radiography Specimen (Source) Anatomical Collection Method Collection Time Re ceived Time Location / / Volume Laterality 11/08/2021 5:58 PM CDT Impressions 11/08/2021 6:00 PM CDT Interval placement of a tracheostomy tub e with tip projecting 8.5 cm above the keely. No evidence of complication. 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 Findings: There is interval tracheostomy with tube projecting over the tracheal lucency and tip 8.5 cm above the keely. The heart size and aortic contour are wi thin normal limits. No evidence of pneumomediastinum. The lungs are adequately inflated withou t acute consolidation. No pleural effusion or pneumothorax. Bone structures in the thorax are intact . Procedure Note Heidi Knox MD - 11/08/2021Forma tting of this note might be different from the original. 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 Findings: There is interval tracheostomy with tube projecting over the tracheal lucency and tip 8.5 cm above the keely. The heart size and aortic contour are wi thin normal limits. No evidence of pneumomediastinum. The lungs are adequately inflated withou t acute consolidation. No pleural effusion or pneumothorax. Bone structures in the thorax are intact . IMPRESSION: Interval placement of a tracheostomy tub e with tip projecting 8.5 cm above the keely. No evidence of complication. Ene Polk MD IMG DIAGNOSTIC IMAGING ORDER YOVANI Pathology Surgical Interpretation (11/08/2021 4:12 PM CDT) Component Value Ref Test Analysis Performed Pathologis t Range Method Time At Signature Submitted Dyspnea, not 11/12/2021 [facility] Clinical History otherwise 7:56 AM specified CDT [R06.00] Diagnosis A: Other, cervical esophageal mass: 11/02 [facility] Electronically Fragments of hyperkeratotic squamous mucosa with mild dyspla tori. 7:56 AM signed by [place] CDT MD JEANNE Collins/JERAMY on 11/13/19 22 at 7:56 AM Gross A: 11/12/2021 [facility] Description Other, cervical esophageal m ass----or 5: Multiple small pieces of spicer-pink soft tissue (1.2 x 1.2 x 0.3 cm in aggregate) are identified, and entirely submitted in A1 for frozen diagnosis. PX 7:56 AM CDT Intraoperative A: 11/12/2021 [facility] Evaluation Other, cervical esophageal mass----or 5: 7:56 AM Fragments of hyperplastic sq uamous epithelium with acute inflammation. No obvious carcinoma or high-grade squamous dysplasia. PN/PPA/FLS CDT Disclaimer "Some tests 11/12/2021 [facility] reported here may 7:56 AM have been CDT developed and performance characteristics determined by [facility] Pathology and Laboratory Medicine. These tests have not been specifically cleared or approved by the U.S. Food and Drug Administration. If applicable, controls were reviewed and showed appropriate reactivity." Specimen Anatomical Collection Method Collection Time Receive d Time (Source) Location / / Volume Laterality Tissue (Other) 11/08/2021 4:12 PM 022 4:31 CDT PM CDT Ene Polk MD LAB PATHOLOGY ORDERABLES Performing Organization Address City/State/ZIP Code Phon e Number [facility] [place] [address] [address] [place] Flexible nasopharyngeal laryngoscopy (11/07/2021 6:14 PM CDT) Rebecca Mark CCC-SLP - 6:14 PM CDT JAMIE Camarena 11/07/2021 6:30 PM Flexible nasopharyngeal laryngoscopy Date/Time: 11/07/2021 6:14 PM Provider Information: Performed by: SUKHDEEP Camarena P Authorized by: OUMAR Staples Vegetable Preparer present?: no Indications: Indications: videostroboscopy Pre-Procedure Note: conference interpreter: no Pre-procedure patient condition: coher ent [...] procedure Post-Procedure Disposition: Disposition: discharge to home Alexandra OSEGUERA ENT ORDERABLES (ABNORMAL) SPIROMETRY W/O DILATORS, DLCO AND BODY PLETHSMOGRAPHIC LUNG VOLUMES (11/07/2021 3:14 PM CDT) Analysis Performed At Patho logist Time Signature FVC (L) pre 2.541 (L) 2.731 - 11/07/2021 [facility] 4.336 L 2:43 PM CDT FEV1 (L) pre 1.528 (L) 1.884 - 11/07/2021 [facility] 3.240 L 2:43 PM CDT FEV1/FVC (%) 60.131 (L) 63.513 - 11/07/2021 [facility] pre 82.869 % 2:43 PM CDT DLCO_SB 4.660 (L) 6.530 - 11/07/2021 [facility] ml/(min*mmHg) 23.117 2:43 PM CDT ml/(min*mm Hg) DLCOc_SB 5.600 (L) 6.530 - 11/07/2021 [facility] ml/(min*mmHg) 23.117 2:43 PM CDT ml/(min*mm Hg) TLC (L) 7.195 4.952 - 11/07/2021 [facility] 7.255 L 2:43 PM CDT RV (L) 4.649 (H) 1.841 - 11/07/2021 [facility] 3.190 L 2:43 PM CDT RV/TLC (%) 64.614 (H) 33.058 - 11/07/2021 [facility] 51.022 % 2:43 PM CDT FVC (% pred) 72 % 11/07/2021 [facility] pre 2:43 PM CDT FEV1 (%pred) 60 % 11/07/2021 [facility] pre 2:43 PM CDT FEV1/FVC (% 82 % 11/07/2021 [facility] pred) pre 2:43 PM CDT TLC (% pred) 118 % 11/07/2021 [facility] 2:43 PM CDT RV (% pred) 185 % 11/07/2021 [facility] 2:43 PM CDT RV/TLC (% 154 % 11/07/2021 [facility] pred) 2:43 PM CDT DLCO_SB (% 31 % 11/07/2021 [facility] pred) 2:43 PM CDT DLCOc_SB (% 38 % 11/07/2021 [facility] pred) 2:43 PM CDT Specimen (Source) Anatomical Collection Method Collection Time Re ceived Time Location / / Volume Laterality 11/07/2021 1:40 PM CDT Narrative This result has an attachment that is no t available. Cintia Mancia MD PFT ORDERABLES Performing Organization Address City/[facility]/ZIP Code Phon e Number [facility] 6 min walk test (11/07/2021 3:14 PM CDT) Specimen (Source) Anatomical Location Collection Method / Collectio n Time Received Time / Laterality Volume Narrative This result has an attachment that is no t available. Kong Prieto MD PFT ORDERABLES Performing Organization Address City/[facility]/ZIP Code Phon e Number [facility] Clot Expiration Date (10/27/2021 5:10 AM CDT)Only the most recent of7 results within the time period is included. Patholo gist Method Time Signature T & S 10/30/2021 [facility] Specimen Anatomical Collection Method Collection Time Receive d Time (Source) Location / / Volume Laterality Blood 10/27/2021 5:10 AM 2 5:31 CDT AM CDT Cintia Mancia MD BLOOD BANK TEST ORDERABLES Performing Organization Address City/[facility] Phon e Number [facility] CANCER Unless otherwise noted, [address] all lab tests performed by: Division of Pathology and Laboratory Medicine [address] ABORh Manual (10/27/2021 5:10 AM CDT)Only the most recent of5 resultswithin the time period is included. P athologist Signature ABORh Manual O NEG [facility] Specimen Anatomical Collection Method Collection Time Receive d Time (Source) Location / / Volume Laterality Blood 10/27/2021 5:10 AM 2 5:31 CDT AM CDT Cintia Mancia MD BLOOD BANK TEST ORDERABLES Performing Organization Address City/[facility]/ZIP Code Phon e Number [facility] CANCER Unless otherwise noted, [address] all lab tests performed by: Division of Pathology and Laboratory Medicine [address] Calcium Ionized, Venous (10/27/2021 5:10 AM CDT)Only the most recent of15 resultswithin the time period is included. P athologist Signature V Ion Ca 1.29 1.15 - 1.29 [facility] mmol/L [facility]ER CENTER Specimen Anatomical Collection Method Collection Time Receive d Time (Source) Location / / Volume Laterality Blood 10/27/2021 5:10 AM 2 5:12 CDT AM CDT Cintia Mancia MD LAB BLOOD ORDERABLES Performing Organization Address City/[facility] Phon e Number [facility] CANCER Unless otherwise noted, [address] all lab tests performed by: Division of Pathology and Laboratory Medicine [address] [place] [address] TMP Interpretation Antibody Screen Negative (10/25/2021 5:02 AM CDT)Only the most recent of5 resultswithin the time period is included. Patholo gist Method Time Signature TMP Auto Neg At the [facility] plasma shows no evidence of RBC alloantibodi es. Comment: [id number] Dictated by: MD Carri [id number] Dictated Date/Time: 10.25.2021 9:09 AM C DT Transcribed Date/Time: 10.25.2021 9:09 AM CDT Electronically Signed By: [place] [id number] on 10.25.2021 9:09 AM C Specimen Anatomical Collection Method Collection Time Receive d Time (Source) Location / / Volume Laterality Blood 10/25/2021 5:02 AM 2 5:55 CDT AM CDT Cintia Mancia MD BLOOD BANK TEST ORDERABLES Performing Organization Address City/[facility] Phon e Number [facility] CANCER Unless otherwise noted, [address] all lab tests performed by: Division of Pathology and Laboratory Medicine [address] [place] [address] [place] Antibody Screen (10/25/2021 5:02 AM CDT)Only the most recent of5 resultswithin the time period is included. athologist Signature ABSC. Negative ABSC [facility] Specimen Anatomical Collection Method Collection Time Receive d Time (Source) Location / / Volume Laterality Blood 10/25/2021 5:02 AM 2 5:55 CDT AM CDT Cintia Mancia MD BLOOD BANK TEST ORDERABLES Performing Organization Address City/[facility]/ZIP Code Phon e Number [facility] CANCER Unless otherwise noted, [address] all lab tests performed by: Division of Pathology and Laboratory Medicine [address] [place] [address] Hemoglobin A1c (10/23/2021 5:13 AM CDT) athologist [facility] A1C 5.3 4.3 - 5.6 % [facility] Comment: HbA1c values >=6.5% are diagnostic of di abetes mellitus. Diagnosis should be confirmed by repeat testing. Therapeutic Action suggested: >8.0% HbA1 c; Goal of therapy: <7.0% HbA1c Specimen Anatomical Collection Method Collection Time Receive d Time (Source) Location / / Volume Laterality Blood 10/23/2021 5:13 AM 2 5:43 CDT AM CDT Cintia Mancia MD LAB BLOOD ORDERABLES Performing Organization Address City/[facility]/ZIP Code Phon e Number [facility] CANCER Unless otherwise noted, [address] all lab tests performed by: Division of Pathology and Laboratory Medicine [address] [place] [address] MRSA Screening Culture (10/22/2021 5:27 PM CDT)Only the most recent of2 results within the time period is included. Component Value Ref Test Analysis Performed At [facility] gist Range Method Time Signature Final Report No Methicillin [facility] Staphylococcus CANCER aureus isolated. CENTER Path Review The results have been review ed and electronically signed by Pathologist: [place] MD BERTA BRADY MD #[id number] [facility] Specimen Anatomical Collection Method Collection Time Receive d Time (Source) Location / / Volume Laterality Nasal 10/22/2021 5:27 PM 2 6:05 CDT PM CDT Cintia Mancia MD MICROBIOLOGY - GENERAL ORDER YOVANI Performing Organization Address City/State/ZIP Code Phon e Number [facility] CANCER Unless otherwise [address] all lab tests performed by: Division of Pathology and Laboratory Medicine [facility] [place] PETCT Subsequent Treatment Strategy (10/21/2021 8:59 AM CDT) Anatomical Region Laterality Modality Whole Body Positron Emission To mography (PET) Specimen (Source) Anatomical Collection Method Collection Time Re ceived Time Location / / Volume Laterality 10/21/2021 6:09 PM CDT Impressions 10/21/2021 6:32 PM CDT No evidence of FDG avid residual or local recurrence within the larynx. No suspicious herrera or osseous metastatic disease. Soft tissue fullness in the cervical eso phagus seen on the contrasted same-day CT neck study demonstrates focal activity. This is concerning and endoscopy is suggested. A small consolidation with mild activity is identified in the left lower lobe along with a small right pleural effusion. This is likely infectious/inflammatory in etiology. Recommend clinical correlation and attention on follow-up. 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 Indication: Restaging study for subseque nt therapy planning Comparison: CT neck dated 10/21/2021, CT abdomen/pelvis dated 10/18/2021, outside PET/CT dated 04/07/2021. Technique: F-18 fluorodeoxyglucose (FDG) 9.2 mCi was administered intravenously via right PICC line. To allow for distribution and uptake of radiotracer, the patient was asked to rest quietly for appr oximately 60-90 minutes. PET/CT imagin g was performed from the vertex to distal thighs. CT scanning was done for attenuation correction, image registration, and diagnosis with scan parameters optimize d to minimize radiation exposure to the patient. SUV measurements are reported as maximum SUV based on body weight unless otherwise specified. Findings: Head and Neck: No focal suspicious activ ity is seen within the brain parenchyma. The paranasal sinuses are clear. No evidence of FDG avid or enlarged cervical nodes. Curvilinear activity is identified w ithin the left paravertebral and neck mu sculature, likely related to muscle strain. No focal suspicious activity is identifi ed within the larynx to suggest residual disease. However, the soft tissue fullness identified in the cervical esophagus at the level of C6-7 on the same day CT c ontrasted study demonstrates focal activ ity demonstrating SUV up to 7.6, image 91. Chest: Mild upper lobe predominant emphy sematous changes are identified. A small consolidation is identified in the left lower lobe measuring 3.2 x 2.6 cm (series 4, image 171) with low-level activity ( SUV 3.8, image 174), likely related to a n infectious/inflammatory etiology. Also noted is a small right pleural effusion. There is no pericardial effusion. No evidence of FDG avid or enlarged mediastina l, hilar or axillary nodes. A right uppe r extremity PICC line is noted with the tip terminating in the distal SVC. Abdomen and Pelvis: No focal FDG avid he patic lesion. Gallbladder, pancreas, spleen, bilateral adrenal glands and kidneys are grossly unremarkable. A percutaneous gastrostomy tube is identified. No foca l suspicious activity is seen within the bowel loops. Sigmoid diverticulosis is identified. No evidence of FDG avid mesenteric, retroperitoneal or inguinal lymphadenopathy. A large right hydrocele is identified. Musculoskeletal: No evidence of FDG avid lytic or sclerotic osseous lesions. Prominent activity is identified within the left posterior shoulder, anterior chest wall and bilateral upper extremities (lef t greater than right) and right medial p roximal thigh musculature likely related to muscle strain. Procedure Note Airam Dobson MD - 10/21/2021Fo rmatting of this note might be different from the original. 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 Indication: Restaging study for subseque nt therapy planning Comparison: CT neck dated 10/21/2021, CT abdomen/pelvis dated 10/18/2021, outside PET/CT dated 04/07/2021. Technique: F-18 fluorodeoxyglucose (FDG) 9.2 mCi was administered intravenously via right PICC line. To allow for distribution and uptake of radiotracer, the patient was asked to rest quietly for approximately 60-90 minutes. PET/CT imaging was perfor med from the vertex to distal thighs. CT scanning was done for attenuation correction, image registration, and diagnosis with scan parameters optimized to minimize radiation exposure to the patient. SUV m easurements are reported as maximum SUV based on body weight unless otherwise specified. Findings: Head and Neck: No focal suspicious activ ity is seen within the brain parenchyma. The paranasal sinuses are clear. No evidence of FDG avid or enlarged cervical nodes. Curvilinear activity is identified within the left paravertebral and neck musculature, likely related to muscle strain. No focal suspicious activity is identifi ed within the larynx to suggest residual disease. However, the soft tissue fullness identified in the cervical esophagus at the level of C6-7 on the same day CT contrasted study demonstrates focal activity demons trating SUV up to 7.6, image 91. Chest: Mild upper lobe predominant emphy sematous changes are identified. A small consolidation is identified in the left lower lobe measuring 3.2 x 2.6 cm (series 4, image 171) with low-level activity (SUV 3.8, image 174), likely related to an infectious/inflamma tory etiology. Also noted is a small right pleural effusion. There is no pericardial effusion. No evidence of FDG avid or enlarged mediastinal, hilar or axillary nodes. A right upper extremity PICC line is noted with the tip terminating in the distal SVC. Abdomen and Pelvis: No focal FDG avid he patic lesion. Gallbladder, pancreas, spleen, bilateral adrenal glands and kidneys are grossly unremarkable. A percutaneous gastrostomy tube is identified. No focal suspicious activity is seen within the b owel loops. Sigmoid diverticulosis is identified. No evidence of FDG avid mesenteric, retroperitoneal or inguinal lymphadenopathy. A large right hydrocele is identified. Musculoskeletal: No evidence of FDG avid lytic or sclerotic osseous lesions. Prominent activity is identified within the left posterior shoulder, anterior chest wall and bilateral upper extremities (left greater than right) and right medial pro ximal thigh musculature likely related to muscle strain. IMPRESSION: No evidence of FDG avid residual or loca l recurrence within the larynx. No suspicious herrera or osseous metastatic disease. Soft tissue fullness in the cervical eso phagus seen on the contrasted same-day CT neck study demonstrates focal activity. This is concerning and endoscopy is suggested. A small consolidation with mild activity is identified in the left lower lobe along with a small right pleural effusion. This is likely infectious/inflammatory in etiology. Recommend clinical correlation and attention on follow-up. Cintia Mancia MD IMG PETCT ORDERABLES Transfuse RBC:Transfusion Date: 10/20/2021 (10/21/2021 1:16 AM CDT)Only the most recent of4 resultswithin the time period is included. Cintia Mancia MD BLOOD TRANSFUSION ORDERABLES TMP Exception (10/20/2021 2:36 PM CDT)Only the most recent of2 resultswithin the time period is included. Component Value Ref Test Analysis Performed At [facility] gist Range Method Time Signature TMP Exception Patient O Rh Neg ROMAN CRAWLEY Interp transfused with O ANUJA Rh Pos blood due CANCER to temporary CENTER unavailability of Rh compatible units. Comment: MD Carri ALLEN [id number] Dictated by: MD Carri ALLEN [id number] Dictated Date/Time: 10.20.2021 16:00 PM CDT Transcribed Date/Time: 10.20.2021 16:00 PM CDT Electronically Signed By: MD Carri ALLEN [id number] on 10.20.2021 16:00 PM Specimen Anatomical Collection Method Collection Time Receive d Time (Source) Location / / Volume Laterality Blood 10/20/2021 2:36 PM 2 2:36 CDT PM CDT Bela Murphy MD BLOOD BANK TE ORDERABLES Performing Organization Address City/State/ZIP Code Phon e Number [place] [facility] Unless otherwise noted, [address] all lab tests performed by: Division of Pathology and Laboratory Medicine [address] [place] [address] RBC Product Ready for Cotton [employer] Yard Supervisor (10/20/2021 1:00 PM CDT)Only the most recent of3 resultswithin the time period is included. Analysis Performed At [facility] logist Time Signature PRBC Product B2 Blood ROMAN CRAWLEY Ready for Pick Bank [facility] Comment: Product is ready for last picker on October 20, 2021 14:33:17 CDT. Specimen Anatomical Collection Method Collection Time Receive d Time (Source) Location / / Volume Laterality Blood 10/20/2021 1:00 PM 2 1:00 CDT PM CDT Cintia Mancia MD BLOOD BANK PRODUCT ORDERABLE S Performing Organization Address City/[facility] Phon e Number [facility] Unless otherwise noted, [address] all lab tests performed by: Division of Pathology and Laboratory Medicine [address] [place] [address] Prepare RBC:G722, 1 Units (10/20/2021 1:00 PM CDT)Only the most recent of3 resultswithin the time period is included. athologist Signature PRBC Product 1 [facility] Comment: Red Blood Cells Available - Ord er Form 03 when ready for product issue. Unit Number [id number] [facility] Product Code [id number] [facility] Unit [facility]piration [facility] Unit Blood Type 5100 [facility] Product Code Text RBCIRLR Aph ACDA AS1 Bag 1 [facility] Crossmatch Expiration Date [facility] Unit Irradiated IRRADIATED [place] [facility] Dispense Status ISSUED [facility] Unit Blood Type O Positive RI [facility] Amos [facility] Product [employer] Yard Supervisor Location .BPAM [facility] Comment: Specimen Anatomical Collection Method Collection Time Receive d Time (Source) Location / / Volume Laterality Blood 10/20/2021 1:00 PM 2 1:00 CDT PM CDT Cintia Mancia MD BLOOD BANK PRODUCT ORDERABLE S Performing Organization Address City/[facility] Phon e Number [facility] CANC[facility] Unless otherwise noted, [address] all lab tests performed by: Division of Pathology and Laboratory Medicine [address] [place] [address] X-ray Chest 1 View Portable (10/19/2021 5:15 AM CDT)Only the most recent of3 resultswithin the time period is included. Anatomical Region Laterality Modality Chest Digital Radiography Specimen (Source) Anatomical Collection Method Collection Time Re ceived Time Location / / Volume Laterality 10/19/2021 7:21 AM CDT Impressions 10/19/2021 7:24 AM CDT Opacities in the left lower lobe have decreased since CT of 09/20/2021 and are unchanged since 10/19/2019 and are most consistent with sequelae of aspiration. 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 Comparison: Chest 10/18/2021. Technique: Single portable anteroposteri or radiograph of the chest. Findings: 1. There are poorly marginated opacities in the left lower lobe that are unchanged. 2. The mediastinal contours and cardiac silhouette is stable. There is no pulmonary edema. Procedure Note River Cobian MD - 10/19/2021Formatti ng of this note might be different from the original. 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 Comparison: Chest 10/18/2021. Technique: Single portable anteroposteri or radiograph of the chest. Findings: 1. There are poorly marginated opacities in the left lower lobe that are unchanged. 2. The mediastinal contours and cardiac silhouette is stable. There is no pulmonary edema. IMPRESSION: Opacities in the left lower lobe have de creased since CT of 09/20/2021 and are unchanged since 10/19/2019 and are most consistent with sequelae of aspiration. Cintia Mancia MD IMG DIAGNOSTIC IMAGING ORDER YOVANI CT Abdomen Pelvis without Contrast (10/18/2021 9:20 PM CDT) Anatomical Region Laterality Modality Abdomen, Pelvis Computed Tomography Specimen (Source) Anatomical Collection Method Collection Time Re ceived Time Location / / Volume Laterality 10/18/2021 9:28 PM CDT Impressions 10/18/2021 9:33 PM CDT Gastrostomy tube in place without eviden ce for extravasation. Narrative 10/18/2021 9:33 PM CDT Examination: CT ABDOMEN PELVIS WO CONTRA ST, 10/18/2021 9:20 PM Clinical History: Primary squamous cell carcinoma of larynx Indication: PEG placement confirmation a nd perforation Comparison: None Technique: CT of the abdomen and pelvis was performed without intravenous contrast. Findings: In the lung bases, there is motion artif act and the opacity in left lower lobe is nonspecific. Subsegmental atelectasis is present in t he lower lingula. A percutaneous gastrostomy tube is in p lace with contrast present within the stomach and the small and large bowel. No extravasation of contrast is seen out side of the stomach. The wall thickening of the stomach is no nspecific and may be due to lack of distention. Given the lack of vascular opacification , no mass is seen the liver, spleen, pancreas, adrenal glands or kidneys. No hydronephrosis is present. The gallbl adder has been resected. Motion artifact is present in the mid ab domen. On diverticulosis is present with predom inance in the sigmoid colon. On image 132 of series 5, there is a sma ll nondependent collection of gas in the urinary bladder of unknown etiology or chronicity. Multilevel degenerative-like bone change s are present. Procedure Note Best Rahman MD - 10/18/2021Forma tting of this note might be different from the original. Examination: CT ABDOMEN PELVIS WO [facility], 10/18/2021 9:20 PM Clinical History: Primary squamous cell carcinoma of larynx Indication: PEG placement confirmation a nd perforation Comparison: None Technique: CT of the abdomen and pelvis was performed without intravenous contrast. Findings: In the lung bases, there is motion artif act and the opacity in left lower lobe is nonspecific. Subsegmental atelectasis is present in t he lower lingula. A percutaneous gastrostomy tube is in p lace with contrast present within the stomach and the small and large bowel. No extravasation of contrast is seen out side of the stomach. The wall thickening of the stomach is no nspecific and may be due to lack of distention. Given the lack of vascular opacification , no mass is seen the liver, spleen, pancreas, adrenal glands or kidneys. No hydronephrosis is present. The gallbl adder has been resected. Motion artifact is present in the mid ab domen. On diverticulosis is present with predom inance in the sigmoid colon. On image 132 of series 5, there is a sma ll nondependent collection of gas in the urinary bladder of unknown etiology or chronicity. Multilevel degenerative-like bone change s are present. IMPRESSION: Gastrostomy tube in place without eviden ce for extravasation. Tori Velez MD IMG CT ORDERABLES Lactic Acid, Venous (10/18/2021 3:57 PM CDT)Only the most recent of2 results within the time period is included. P athologist Signature V Lactate 0.5 0.5 - 1.6 [facility] mmol/L [facility] CENTER Specimen Anatomical Collection Method Collection Time Receive d Time (Source) Location / / Volume Laterality Blood 10/18/2021 3:57 PM 2 4:11 CDT PM CDT Monika Mandujano TEACHER DRAMATICS LAB BLOOD ORDERABLES Performing Organization Address [facility] Phon e Number [facility] CANCER Unless otherwise noted, [address] all lab tests performed by: Division of Pathology and Laboratory Medicine [address] [place] [address] VRE Culture (10/18/2021 3:57 PM CDT)Only the most recent of2 resultswithin the time period is included. Component Value Ref Test Analysis Performed At Patholo gist Range Method Time Signature Final Report No Vancomycin [facility] Enterococci CANCER isolated CENTER Path Review - VRE absent or below limits of detection. [facility] VRE ... ANUJA Culture yield may be affecte d by sample quality, prior treatment, and transportation conditions. CANCER ... CENTER The results have been reviewed and electronically signed by Pathologist: Amaury Sinha MD, PhD #[id number] Specimen Anatomical Collection Method Collection Time Receive d Time (Source) Location / / Volume Laterality Rectal Swab 10/18/2021 3:57 PM 2 7:07 CDT PM CDT Devendra OSEGUERA MICROBIOLOGY - GENERAL ORDER YOVANI Performing Organization Address City/[facility]/ZIP Code Phon e Number [facility] CANCER Unless otherwise noted, [address] all lab tests performed by: Division of Pathology and Laboratory Medicine [facility]5 Jay Em [place] Echocardiogram 2D Complete (10/18/2021 3:16 PM CDT) Specimen (Source) Anatomical Collection Method Collection Time Re ceived Time Location / / Volume Laterality 10/18/2021 2:34 PM CDT Narrative ISCV - 10/18/2021 5:41 PM CDT Echocardiographic Report Interpretation Summary A complete two-dimensional transthoracic echocardiogram was performed (2D, M- mode, Spectral and color Doppler). The study was technically difficult. Normal left ventricular size and systoli c function. LV ejection fraction calculated using th e bi-plane method of disks is 62 %. The right ventricle is normal in size an d function. Mild valvular aortic stenosis. The calcu lated aortic valve area is 1.9 sq.cm. Right ventricular systolic pressure is n ormal. There is no pericardial effusion. When compared to the prior study from 07/11/2021, RVSP is now within normal limits. RV size measures within normal limits, although not much different compared to the prior study. Left Ventricle: Normal left ventricular size and systoli c function. Relative width thickness measures suggest concentric changes. LV ejection fraction calculated using the bi-plane method of disks is 62 %. No regional wall motion abnormalities noted. I WMSI = 1.00 % Normal = 1 00 Normal global longitudinal peak systolic value. X - Cannot 1 - Normal 2 - 3 - Akinetic 4 - Dyskinetic Interpret Hyp okinetic 5 - Aneurysmal 3D imaginD volumes were not [facility]. Cardiac Mechanics/Speckle Tracking Imagi ng: Normal global longitudinal peak systolic value. Strain Imaging was performed; GLPS avg = -19.3%. Diastology: Impaired LV relaxation pattern of diasto lic dysfunction, Doppler suggests normal LA pressures. Right Ventricle: The right ventricle is normal in size an d function. Normal RV systolic function using TAPSE criteria. Atria: Left atrium not well seen for volumetric measures but appears grossly normal in size. Right atrial size is normal. Mitral Valve: The mitral valve is grossly normal. Ther e is no mitral valve stenosis. There is trace mitral regurgitation. Tricuspid Valve: The tricuspid valve is not well visualiz ed, but is grossly normal. There is trace tricuspid regurgitation. Estimated RVSP is 25-30mmHg. Right ventricular systolic pressure is normal. Aortic Valve: Marked aortic valve calcification. Mild valvular aortic stenosis. The peak velocity is 2.3 m/sec. The calculated mean gradient across the aortic valve is 11 mmHg. The calculated aortic valve area is 1.9 sq.cm. Pulmonic Valve: The pulmonic valve is not well visualize d. There is no pulmonic valvular stenosis. Trace pulmonic valvular regurgitation. Great Vessels: The aortic root is normal size. The infe rior vena cava demonstrates normal size and normal respiratory variation. Pericardium/Pleural: There is no pericardial effusion. Preliminary Reviewer Preliminary Interpretation: Kellee hunter MD. MMode/2D Measurements IVSd: 1.0 cm LVIDd: 4.3 cm LVPWd: 1.1 cm Ao root diam: 3.2 cm LVOT diam: 2.0 cm Ao root area: 7.9 cm2 LVOT area: 3.3 cm2 LA dimension: 2.6 cm EDV(MOD-A4C): 58.7 ml EDV(MOD-A2C): 81.2 ml ESV(MOD-A4C): 21.9 ml ESV(MOD-A2C): 32.1 ml EF(MOD-A4C): 62.6 % EF(MOD-A2C): 60.4 % LAV(MOD-A4C): 16.9 ml EDV(MOD-bp): 70.5 ml ESV(MOD-bp): 26.9 ml EF(MOD-bp): 61.8 % EDV (MOD-bp) Index: 43.5 ml/m2 ESV (MOD-bp) Index: 16.6 ml/m2 RWT: 0.53 cm TAPSE (>1.6): 2.5 cm Doppler Measurements MV E max enid: 90.0 cm/sec MV V2 max: 114.7 cm/sec MV A max enid: 98.2 cm/sec MV max P.3 mmHg MV E/A: 0.92 MV V2 mean: 75.6 cm/sec MV mean P.5 mmHg MV V2 VTI: 16.1 cm MVA(VTI): 4.5 cm2 MV P1/2t max enid: 89.0 cm/sec Ao V2 max: 234.0 cm/sec MV P1/2t: 46.3 msec Ao max P.9 mmHg MVA(P1/2t): 4.7 cm2 Ao V2 mean: 151.4 cm/sec MV dec slope: 562.9 cm/sec2 Ao mean P.8 mmHg Ao V2 VTI: 37.5 cm MALA(I,D): 1.9 cm2 MALA(V,D): 1.8 cm2 LV V1 max P.9 mmHg SV(LVOT): 73.1 ml LV V1 mean P.3 mmHg LV V1 max: 130.9 cm/sec LV V1 mean: 84.1 cm/sec LV V1 VTI: 22.4 cm Med Peak E' Enid: 6.3 cm/sec Lat Peak E' Enid: 7.1 cm/sec TR max enid: 257.4 cm/sec RAP systole: 3.0 mmHg TR max P.5 mmHg RVSP(TR): 29.5 mmHg MALA Index (I,D): 1.2 MALA Index (V,D): 1.1 Dimensionless Index: 0.56 E/e' (avg): 13.4 E/e' (lat): 12.7 E/e' (sept): 14.2 62 Procedure Note Fareed Cannon MD - 10/19/19 22 Echocardiographic Report Interpretation Summary A complete two-dimensional transthoracic echocardiogram was performed (2D, M- mode, Spectral and color Doppler). The study was technically difficult. Normal left ventricular size and systoli c function. LV ejection fraction calculated using th e bi-plane method of disks is 62 %. The right ventricle is normal in size an d function. Mild valvular aortic stenosis. The calcu lated aortic valve area is 1.9 sq.cm. Right ventricular systolic pressure is n ormal. There is no pericardial effusion. When compared to the prior study from 07/11/2021, RVSP is now within normal limits. RV size measures within normal limits, although not much different compared to the prior study. Left Ventricle: Normal left ventricular size and systoli c function. Relative width thickness measures suggest concentric changes. LV ejection fraction calculated using the bi-plane method of disks is 62 %. No regional wall motion abnormalities noted. I WMSI = 1.00 % Normal = 100 Normal global longitudinal peak sy stolic value. X - Cannot 1 - Normal 2 - 3 - Akinetic 4 - Dyskinetic Interpret Hypokinetic 5 - Aneurysmal 3D imaginD volumes were not performed [facility]. Cardiac Mechanics/Speckle Tracking Imagi ng: Normal global longitudinal peak systolic value. Strain Imaging was performed; GLPS avg = -19.3%. Diastology: Impaired LV relaxation pattern of diasto lic dysfunction, Doppler suggests normal LA pressures. Right Ventricle: The right ventricle is normal in size an d function. Normal RV systolic function using TAPSE criteria. Atria: Left atrium not well seen for volumetric measures but appears grossly normal in size. Right atrial size is normal. Mitral Valve: The mitral valve is grossly normal. Ther e is no mitral valve stenosis. There is trace mitral regurgitation. Tricuspid Valve: The tricuspid valve is not well visualiz ed, but is grossly normal. There is trace tricuspid regurgitation. Estimated RVSP is 25-30mmHg. Right ventricular systolic pressure is normal. Aortic Valve: Marked aortic valve calcification. Mild valvular aortic stenosis. The peak velocity is 2.3 m/sec. The calculated mean gradient across the aortic valve is 11 mmHg. The calculated aortic valve area is 1.9 sq.cm. Pulmonic Valve: The pulmonic valve is not well visualize d. There is no pulmonic valvular stenosis. Trace pulmonic valvular regurgitation. Great Vessels: The aortic root is normal size. The infe rior vena cava demonstrates normal size and normal respiratory variation. Pericardium/Pleural: There is no pericardial effusion. Preliminary Reviewer Preliminary Interpretation: Kellee hunter MD. MMode/2D Measurements IVSd: 1.0 cm LVIDd: 4.3 cm LVPWd: 1.1 cm Ao root diam: 3.2 cm LVOT diam: 2.0 cm Ao root area: 7.9 cm2 LVOT area: 3. 3 cm2 LA dimension: 2.6 cm EDV(MOD-A4C): 58.7 ml EDV(MOD-A2C): 81.2 ml ESV(MOD-A4C): 21.9 ml ESV(MOD-A2C): 32.1 ml EF(MOD-A4C): 62.6 % EF(MOD-A2C): 60. 4 % LAV(MOD-A4C): 16.9 ml EDV(MOD-bp): 70.5 ml ESV(MOD-bp): 26.9 ml EF(MOD-bp): 61.8 % EDV (MOD-bp) Index: 43.5 ml/m2 ESV (MOD-bp) Index: 16.6 ml/m2 RWT: 0.53 cm TAPSE (>1.6): 2.5 cm Doppler Measurements MV E max enid: 90.0 cm/sec MV V2 max: 114.7 cm/sec MV A max enid: 98.2 cm/sec MV max P.3 mmHg MV E/A: 0.92 MV V2 mean: 75.6 cm/sec MV mean P.5 mmHg MV V2 VTI: 16.1 cm MVA(VTI): 4.5 cm2 MV P1/2t max enid: 89.0 cm/sec Ao V2 max: 234.0 cm/sec MV P1/2t: 46.3 msec Ao max P.9 mmHg MVA(P1/2t): 4.7 cm2 Ao V2 mean: 151 .4 cm/sec MV dec slope: 562.9 cm/sec2 Ao mean P.8 mmHg Ao V2 VTI: 37.5 cm MALA(I,D): 1.9 cm2 MALA(V,D): 1.8 cm2 LV V1 max P.9 mmHg SV(LVOT): 73 .1 ml LV V1 mean P.3 mmHg LV V1 max: 130.9 cm/sec LV V1 mean: 84.1 cm/sec LV V1 VTI: 22.4 cm Med Peak E' Enid: 6.3 cm/sec Lat Peak E' Enid: 7.1 cm/sec TR max enid: 257.4 cm/sec RAP systol e: 3.0 mmHg TR max P.5 mmHg RVSP(TR): 29.5 mmHg MALA Index (I,D): 1.2 MALA Index (V,D ): 1.1 Dimensionless Index: 0.56 E/e' (avg ): 13.4 E/e' (lat): 12.7 E/e' (sept): 14.2 62 Cintia Mancia MD CV ECHO ORDERABLES Performing Organization Address City/State/ZIP Code Phon e Number ISCV (ABNORMAL) Complete Blood Count w/o Differential (10/18/2021 1:26 PM CDT) athologist Signature WBC 5.3 4.0 - 11.0 [place] MD K/[facility] RBC 2.95 (L) 4.50 - [place] MD 6.00 M/uL [facility] Hgb 8.2 (L) 14.0 - [place] MD 18.0 gm/dL [facility] Hct 25.5 (L) 40.0 - [place] MD 54.0 % [facility] MCV 86 82 - 98 [facility] MCH 27.8 27.0 - [place] MD 31.0 pg [facility] MCHC 32.2 31.0 - [place] MD 36.0 gm/dL [facility] RDW-SD 47.8 (H) 35.1 - [place] MD 46.3 fL [facility] RDW-CV 15.3 12.0 - [place] MD 15.5 % [facility] Platelet count 138 (L) 140 - 440 [place] MD K/[facility] MPV 10.5 (H) 4.0 - 10.4 [facility] INRBC 0.0 <=0.0 % [facility] Comment: The INRBC (instrument NRBC) value reflec ts the enumeration of nucleated red blood cells contained i n a 200uL sample of whole blood analyzed by the instrumen t. This value may differ from the NRBC value reported in a manual differential, which is based on a 100 cell differentia l. Specimen Anatomical Collection Method Collection Time Receive d Time (Source) Location / / Volume Laterality Blood 10/18/2021 1:26 PM 2 1:31 CDT PM CDT Devendra OSEGUERA LAB BLOOD ORDERABLES Performing Organization Address City/State/ZIP Code Phon e Number [facility] Unless otherwise noted, [address] all lab tests performed by: Division of Pathology and Laboratory Medicine [facility]5 Jay [address] [place] (ABNORMAL) POC ABG (10/18/2021 1:19 PM CDT)Only the most recent of2 results within the time period is included. athologist Signature POC AB pH 7.38 7.35 - 7.45 POC [facility] Comment: The i-STAT is an analyzer used for in vi tro quantification of various analytes in whole blood. The device uses a single disposable cartridge which contains microfabricated sensors, a calibration TeraFirrma n, fluidics system, and a waste chamber. Each test cartridge contains chemically sensitive biosensors on a silicon chip that are configured to perform specific tests. The microfabricated sensors measure analyte concentration by an electrochemical assay. POC AB pCO2 54 (H) 35 - 45 mmHg POC [facility] POC AB pO2 82 80 - 105 mmHg POC [facility] POC AB TCO2 33 (H) 23 - 27 mEq/L POC [facility] POC AB Bicarb 32 (H) 22 - 26 mmol/L POC [facility] POC AB Base Ex 6 (H) -2 - 3 mmol/L POC [facility] POC AB O2 Sat 95 95 - 98 % POC [facility] POC FiO2 30 POC [facility] POC ABG Draw Site OTHER POC [facility]EL[facility] POC Taurus Test Performed POC [facility]EL[facility] POC Sample Type Arterial POC [facility]EL[facility] POC Clean Dev Yes POC TELCOR Performing Lab [facility] POC TELCO R Comment: [facility] Clinical Lab, [address] [place] [id number]; Lab Direct or: Loida Chavez MD Specimen Anatomical Collection Method Collection Time Receive d Time (Source) Location / / Volume Laterality Blood 10/18/2021 1:19 PM 2 1:19 CDT PM CDT Cintia Mancia MD POCT ORDERABLES - DEVICE Performing Organization Address City/State/ZIP Code Phon e Number POC [facility] POC Critical (10/18/2021 11:55 AM CDT)Only the most recent of3 resultswithin the time period is included. P athologist Signature POC Critical See Note POC [facility] Comment Comment: Test performer notified Orderin g Licensed Provider and /or designee of POC AB pH critical Results. Specimen Anatomical Collection Method Collection Time Receive d Time (Source) Location / / Volume Laterality Blood 10/18/2021 11:55 10/18/2021 AM CDT 11:55 AM CDT Cintia Mancia MD POINT OF CARE TEST ORDERABLE S Performing Organization Address City/State/ZIP Code Phon e Number POC [facility] TMP Interpretation Crossmatch (10/18/2021 7:05 AM CDT)Only the most recent of3 resultswithin the time period is included. Patholo gist Method Time Signature TMP XM Interp RBC units [place] crossmatched for [place] transfusion CANCER [facility] acceptable. Comment: MD Carri ALLEN [id number] Dictated by: MD Carri ALLEN [id number] Dictated Date/Time: 10.20.2021 15:53 PM CDT Transcribed Date/Time: 10.20.2021 15:53 PM CDT Electronically Signed By: MD Carri ALLEN [id number] on 10.20.2021 15:53 PM Specimen Anatomical Collection Method Collection Time Receive d Time (Source) Location / / Volume Laterality Blood 10/18/2021 7:05 AM 2 7:27 CDT AM CDT Madelin Knight MD BLOOD BANK TEST ORDERABLES Performing Organization Address City/State/ZIP Code Phon e Number [facility] Unless otherwise noted, [address] all lab tests performed by: Division of Pathology and Laboratory Medicine [facility]5 [address] [place] (ABNORMAL) Urinalysis with Microscopic (10/15/2021 8:23 PM CDT) athologist Signature UA WBC <1 0 - 2 /HPF [facility] UA RBC 1 0 - 2 /HPF [facility] UA Mucous NOT SEEN Not [place] Seen-Trace [facility] UA Bacteria OCC (A) NOT SEEN [facility] UA Squam Epi OCC None-Occas RI ionbalta /[facility] UA Amorph Helene 2+ (A) NOT SEEN [facility] Specimen Anatomical Collection Method Collection Time Receive d Time (Source) Location / / Volume Laterality Urine 10/15/2021 8:23 PM 2 8:31 CDT PM CDT Narrative [facility] - 2 8:59 PM CDT Some reporting parameters within the Urinalysis test have changed due to the implementation of new in strumentation in the [facility], allowi ng greater sensitivity of measurement. Urinalysis results reported by the [facility] using existing instrumentation, as well as Urinalysis t esting performed manually or by backup methodology at the [facility] will remain relatively unchanged. New reporting parameters and units will now be reported for all campuses. Osman Villalobos NP URINE ORDERABLES Performing Organization Address City/State/ZIP Code Phon e Number [facility] CANCER Unless otherwise noted, [address] all lab tests performed by: Division of Pathology and Laboratory Medicine [address] [place] ABORh (10/15/2021 2:07 AM CDT)Only the most recent of2 resultswithin the time period is included. athologist Signature ABORh. O NEG [facility] Specimen Anatomical Collection Method Collection Time Receive d Time (Source) Location / / Volume Laterality Blood 10/15/2021 2:07 AM 2 3:57 CDT AM CDT Osman Villalobos NP BLOOD BANK TEST ORDERABLES Performing Organization Address City/[facility]/ZIP Code Phon e Number [facility] CANCER Unless otherwise noted, [address] all lab tests performed by: Division of Pathology and Laboratory Medicine [address] [place] Fibrinogen (10/15/2021 2:07 AM CDT) athologist [facility] Fibrinogen 307 214 - 503 [facility] mg/dL [facility] Specimen Anatomical Collection Method Collection Time Receive d Time (Source) Location / / Volume Laterality Blood 10/15/2021 2:07 AM 2 2:15 CDT AM CDT Osman Villalobos NP LAB BLOOD ORDERABLES Performing Organization Address City/[facility]/ZIP [facility] Phon e Number [facility] CANCER Unless otherwise noted, [address] all lab tests performed by: Division of Pathology and Laboratory Medicine [address] [place] (ABNORMAL) Triiodothyronine (10/15/2021 2:07 AM CDT) athologist Signature T3 Total 72 (L) 80 - 200 [facility] ng/dL [facility] Specimen Anatomical Collection Method Collection Time Receive d Time (Source) Location / / Volume Laterality Blood 10/15/2021 2:07 AM 2 2:18 CDT AM CDT Osman Villalobos CORPORATE ASSOCIATE ATTORNEY LAB BLOOD ORDERABLES Performing Organization Address City/[facility]/ZIP [facility] Phon e Number [facility] CANCER Unless otherwise noted, [address] all lab tests performed by: Division of Pathology and Laboratory Medicine [address] [place] [address] (ABNORMAL) Thyroid Stimulating Hormone (10/15/2021 2:07 AM CDT)Only the most recent of3 resultswithin the time period is included. P athologist Signature TSH 4.27 (H) 0.27 - 4.20 [facility] mcunit/mL [facility] Specimen Anatomical Collection Method Collection Time Receive d Time (Source) Location / / Volume Laterality Blood 10/15/2021 2:07 AM 2 2:17 CDT AM CDT Osman Hoytmadonna CORPORATE ASSOCIATE ATTORNEY LAB BLOOD ORDERABLES Performing Organization Address [facility]/ZIP [facility] Phon e Number [facility] CANCER Unless otherwise noted, [address] all lab tests performed by: Division of Pathology and Laboratory Medicine [address] [place] [address] Thyroxine Free (10/15/2021 2:07 AM CDT)Only the most recent of3 resultswithin the time period is included. P athologist Signature T4 Free 1.34 0.93 - 1.70 [facility] ng/dL [facility] Specimen Anatomical Collection Method Collection Time Receive d Time (Source) Location / / Volume Laterality Blood 10/15/2021 2:07 AM 2 2:17 CDT AM CDT Osman Hoytmadonna CORPORATE ASSOCIATE ATTORNEY LAB BLOOD ORDERABLES Performing Organization Address City/[facility]/ZIP [facility] Phon e Number [facility] CANCER Unless otherwise noted, [address] all lab tests performed by: Division of Pathology and Laboratory Medicine [address] [place] [address] Lipase Level (10/15/2021 2:07 AM CDT) P athologist Signature Lipase Lvl 20 13 - 60 U/L [facility] Specimen Anatomical Collection Method Collection Time Receive d Time (Source) Location / / Volume Laterality Blood 10/15/2021 2:07 AM 2 2:18 CDT AM CDT Osman Villalobos CORPORATE ASSOCIATE ATTORNEY LAB BLOOD ORDERABLES Performing Organization Address [facility] Phon e Number [facility] Unless otherwise noted, [address] all lab tests performed by: Division of Pathology and Laboratory Medicine [address] [place] (ABNORMAL) Lactate dehydrogenase (10/15/2021 2:07 AM CDT) athologist Signature LDH 232 (H) 135 - 225 [facility] Comment: Results greater than 1651 U/L m ay not be reliable due to matrix effect with extended dilution as it exceeds the manu facturer's recommended limit. Caution should be exercised when interpreting such valu es and done in conjunction with clinical context. Specimen Anatomical Collection Method Collection Time Receive d Time (Source) Location / / Volume Laterality Blood 10/15/2021 2:07 AM 2 2:17 CDT AM CDT Osman Hoytantonio CORPORATE ASSOCIATE ATTORNEY LAB BLOOD ORDERABLES Performing Organization Address [facility] Phon e Number [facility] CANCER Unless otherwise noted, [address] all lab tests performed by: Division of Pathology and Laboratory Medicine [address] [place] Amylase Level (10/15/2021 2:07 AM CDT) athologist Signature Amylase Lvl 28 28 - 100 [facility] Specimen Anatomical Collection Method Collection Time Receive d Time (Source) Location / / Volume Laterality Blood 10/15/2021 2:07 AM 2 2:18 CDT AM CDT Osman Hoytmadonna CORPORATE ASSOCIATE ATTORNEY LAB BLOOD ORDERABLES Performing Organization Address [facility] Phon e Number [facility] Unless otherwise noted, [address] all lab tests performed by: Division of Pathology and Laboratory Medicine [address] [place] EKG, 12-Lead (Portable) (10/15/2021)Only the most recent of6 resultswithin the time period is included. Specimen (Source) Anatomical Location Collection Method / Collectio n Time Received Time / Laterality Volume Narrative This result has an attachment that is no t available. Osman W Risulme CORPORATE ASSOCIATE ATTORNEY ECG ORDERABLES Performing Organization Address City/State/ZIP Code Phon e Number [facility] Chest (10/14/2021 9:45 AM CDT)Only the most recent of2 resultswithin the time period is included. Specimen (Source) Anatomical Location Collection Method / Collectio n Time Received Time / Laterality Volume Narrative Systemgenerated, Documentation - 9:45 AM CDT Study acquired at another institution. For comparison only. No MD Licea originated interpretation requested or a vailable. Amber Park MD IMG OUTSIDE IMAGE ORDERABLES CT Chest with Contrast (09/20/2021 4:26 PM CDT)Only the most recent of2 results within the time period is included. Anatomical Region Laterality Modality Chest Computed Tomography Specimen (Source) Anatomical Collection Method Collection Time Re ceived Time Location / / Volume Laterality 09/21/2021 11:32 AM CDT Impressions 09/21/2021 12:03 PM CDT New opacities in the lingula and left lower lobe concerning for aspiration and/or pneumonia. Clinical correlation follow-up to resolution is recommended. No definite sign of metastatic disease in the chest. 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 Procedure Note Fabrice Castro MD - 09/21/2021Formatt ing of this note might be different from the original. FULL RESULT: Examination: CT CHEST W CONTRAST, [...] sign of metastatic disease in the chest. Alexandra OSEGUERA IMG CT ORDERABLES XR Abdomen 1 View Portable (08/29/2021 6:11 PM CDT) Anatomical Region Laterality Modality Abdomen Digital Radiography Specimen (Source) Anatomical Collection Method Collection Time Re ceived Time Location / / Volume Laterality 08/29/2021 7:18 PM CDT Impressions 08/29/2021 7:19 PM CDT Dobbhoff tube follows the course of the duodenum, tip projecting near the duodenojejunal junction. Narrative 08/29/2021 7:19 PM CDT FULL RESULT: Examination: [...] structures. Procedure Note Bogdan Lemus MD - 08/29/2021Formattin g of this note might be different from the original. FULL RESULT: Examination: XR ABDOMEN 1 VW [...] duodenum, tip projecting near the duodenojejunal junction. Talia Rush MD IMG DIAGNOSTIC IMAGING ORDER YOVANI Pathology Biopsy Interpretation (08/29/2021 2:14 PM CDT) Component Value Ref Test Analysis Performed Pathologis t Range Method Time At Signature Submitted Iron deficiency 08/31/2021 [facility] Clinical anemia, not 4:40 PM History otherwise CDT specified [D50.9] Diagnosis A: Duodenum, biopsy: 08/31/2021 [facility] Electronically Duodenal mucosa with no diagnostic abnormality. 4:40 PM signed by CDT Lorena Miranda B: Stomach, gastric antrum, biopsy: Badillo, DO on Antral and transitional mucosa with reactive gastropathy. 08/31/2021 at No Helicobacter organisms (H&E stain) or intestinal metaplas ia identified. 4:40 PM C: Stomach, gastric body nodularity, biopsy: Fundic gland polyp. D: Colon, hepatic flexure, less than 5 mm sessile polyp, bio psy: Tubular adenoma. Gross A: 08/31/2021 [facility] Description Duodenum, duodenum: 3 soft t an tissue fragments, 0.2 cm - 0.35 cm, entirely submitted in A1. ET 4:40 PM CDT B: Stomach, gastric antrum: Mul tiple soft [...] submitted in D1. ET Disclaimer "Some tests 08/31/2021 [facility] reported here may 4:40 PM have been CDT developed and performance characteristics determined by [facility] Pathology and Laboratory Medicine. These tests have not been specifically cleared or approved by the U.S. Food and Drug Administration. If applicable, controls were reviewed and showed appropriate reactivity." Specimen Anatomical Collection Method Collection Time Receive d Time (Source) Location / / Volume Laterality Tissue 08/29/2021 2:14 PM 7:44 (Duodenum) CDT AM CDT Tissue (Stomach) 08/29/2021 2:16 PM 08/30 7:44 CDT AM CDT Tissue (Stomach) 08/29/2021 2:19 PM 08/30 7:44 CDT AM CDT Tissue (Colon) 08/29/2021 2:47 PM 022 7:44 CDT AM CDT Michael Lam MD LAB PATHOLOGY ORDERABLES Performing Organization Address City/State/ZIP Code Phon e Number [place] [address] [address] [place] Confirm ABORh (08/25/2021 6:19 PM CDT) P athologist Signature ABORh Confirm. O NEG [facility] Specimen Anatomical Collection Method Collection Time Receive d Time (Source) Location / / Volume Laterality Blood 08/25/2021 6:19 PM 2 7:22 CDT PM CDT Hilario Pardo MD BLOOD BANK TEST ORDERABLES Performing Organization Address [facility] Phon e Number [facility] Unless otherwise noted, [place] [address] CENTER all lab tests performed by: Division of Pathology and Laboratory Medicine [address] [place] Flexible nasopharyngeal laryngoscopy (08/22/2021 10:38 AM CDT) Rebecca Mark CCC-SLP - 2 10:38 AM CDT JAMIE Camarena 08/22/2021 4:05 PM Flexible nasopharyngeal laryngoscopy Date/Time: 08/22/2021 10:38 AM Provider Information: Performed by: SUKHDEEP Camarena Authorized by: OUMAR Staples Vegetable Preparer present?: no Indications: Indications: videostroboscopy Pre-Procedure Note: conference interpreter: no Pre-procedure patient condition: coher ent [...] procedure Post-Procedure Disposition: Disposition: discharge to home Alexandra OSEGUERA ENT ORDERABLES COVID-19 (SARS-CoV-2) PCR-Asymptomatic [facility] (08/20/2021 2:44 PM CDT) [facility] Method Time Signature COVID19 (SARS Not Detected Not Detected [place] CoV-2) [facility] Comment: This test is a qualitative reverse-trans criptase polymerase chain reaction (RT- PCR) developed for the Melba RU[employer]0 system and intended for qualitative detection of SARS CoV-2 RNA in nasopharyngeal a nd oropharyngeal swab specimens collecte d from any individuals, including those suspected o f COVID-19 by their healthcare provider, and those without symptoms or other reasons to suspect COVID-19. A fact sheet for patients provided by the felt strip finisher ( [employer]) can be rev iewed at: https://www.fda.gov/media/399320/downloa d. A fact sheet for Health Care providers is provided by the felt strip finisher ([employer]) and can be reviewed at: https://www.fda.gov/media/690455/download Results must be interpreted within the c ontext of all relevant clinical and laboratory findings and should not form the sole basis for a diagnosis or treatment decision. Positive results do not rule out bacterial infection or co- infection with other viruses. Negative results do not rule ou t SARS-CoV-2 and must be combined with clinical observations, patient history, and/or epidemiological information. "Presumptive Positive" results are due t o partial amplification of SARS-CoV-2 targets and indicates low amounts of virus present in the specimen at or near the limit of detection. Regardless, individuals with "Presumptive Positive" results should be managed per institutional guidelines as individuals positive for SARS-CoV-2 virus, including use of appropriate infection control protocols. Internal controls are included to assess for possible amplification inhibitors. If inhibition is detected, testing is repeated and if inhibition is confirmed the specimen is resulted as "Invalid". When an "Invalid" result occurs, it is recomm ended to wait 3 days before submitting a new spec imen for testing if clinically indicated. This assay has been approved by the FDA for use only under Emergency Use Authorization (EUA) in laboratories that have been CLIA-certified to perform moderate-complexity and high-complexity tests. The performance characteristics of this assay were verified by the Microbiology Laboratory at [facility], CLIA Accreditation #: [id number] and CAP Accreditation #: [id number]. COVID19 SARS Source CORPORATE ASSOCIATE ATTORNEY Swab RI MD [facility] COVID19 SARS Indication Pre-Out of OR Procedure [facility] Specimen (Source) Anatomical Collection Method Collection Time Re ceived Time Location / / Volume Laterality Nasopharyngeal Swab 08/20/2021 2:44 08/20 PM CDT 5:16 PM CDT Alexandra OSEGUERA MICROBIOLOGY - GENERAL ORDER YOVANI Performing Organization Address City/State/ZIP Code Phon e Number [facility] Unless otherwise noted, [place] [address] [place] all lab tests performed by: Division of Pathology and Laboratory Medicine [address] [facility] Echocardiogram 2D Complete (07/11/2021 4:16 PM BARGE MASTER) Specimen (Source) Anatomical Collection Method Collection Time Re ceived Time Location / / Volume Laterality 07/11/2021 1:55 PM BARGE MASTER Narrative [facility] - 07/11/2021 4:19 PM BARGE MASTER Echocardiographic Report Interpretation Summary A complete two-dimensional [...] Interpret 1 - Normal Hypokinetic 3 - Paco netic 4 - Dyskinetic3-5 moderate 5 - Aneurysmal [...] ESV(MOD-A2C): 41.7 ml EF(MOD-A4C): 63.3 % EF(MOD-A2C): 59. 7 % LAV(MOD-A2C): 35.3 ml EDV(MOD-bp): 89.3 ml LAV(MOD-A4C): 3 4.3 ml ESV(MOD-bp): 34.4 ml LAV(MOD-bp): 38. 8 ml EF(MOD-bp): 61.5 % LAV(MOD-bp) Indexed: 22.1 ml/m2 EDV (MOD-bp) Index: 50.7 ml/m2 ESV ( MOD-bp) Index: 19.5 ml/m2 RWT: 0.46 cm TAPSE (>1.6): 2.6 cm Doppler Measurements MV E max enid: 123.3 cm/sec MV V2 ma x: 135.9 cm/sec MV A max enid: 95.0 cm/sec MV max P.4 mmHg MV E/A: 1.3 MV V2 mean: 67.1 cm/sec MV mean P.1 mmHg MV V2 VTI: 32.6 cm MVA(VTI): 4.5 cm2 MV P1/2t max enid: 123.3 cm/sec Ao V2 max: 211.4 cm/sec MV P1/2t: 49.4 msec Ao max P.9 mmHg MVA(P1/2t): 4.4 cm2 Ao V2 mean: 136. 5 cm/sec Ao mean P.5 mmHg MV dec slope: 730.2 cm/sec2 Ao V2 V TI: 44.6 cm MALA(I,D): 3.3 cm2 MALA(V,D): 3.1 cm2 LV V1 max P.7 mmHg SV(LVOT): 148 .1 ml LV V1 mean P.0 mmHg LV V1 max: 155.4 cm/sec LV V1 mean: 119.1 cm/sec LV V1 VTI: 35.6 cm Med Peak E' Enid: 7.2 cm/sec Lat Peak E' Enid: 10.5 cm/sec TR max enid: 369.9 cm/sec RAP systol e: 8.0 mmHg TR max P.7 mmHg RVSP(TR): 62.7 mmHg MALA Index (I,D): 1.9 MALA Index (V,D): 1.7 Dimensionless Index: 0.74 E/e' (avg ): 13.9 E/e' (lat): 11.7 E/e' (sept): 17.1 62 Ino De Paz MD CV ECHO ORDERABLES Performing Organization Address City/State/ZIP Code Phon e Number [facility] (ABNORMAL) Troponin T (In-House) (07/10/2021 6:09 AM BARGE MASTER)Only the most recent of 4 resultswithin the time period is included. P athologist Signature Troponin T 37 (H) <=18 ng/L [facility] Comment: < 19 ng/L Suggest retest at 3 to 6 hours later to rule out myocardial infarction >= 19 to <=52 ng/L Pos sible myocardial injury. Suggest retest at 3 hours. - a change of < 20 ng/L, retest at 6 hours - a change of >= 20 ng/L, suggestive of myocardial infarction > 52 ng/L Suggestive of myocardial infarction Critical value will be reported when cTn T is > 52 ng/L and only reported for the first in a series. Hemolyzed specimens with Hemolysis Index >100 (100 mg/dl or moderate hemolysis) may cause interferences and falsely low results. Specimen Anatomical Collection Method Collection Time Receive d Time (Source) Location / / Volume Laterality Blood 07/10/2021 6:09 AM 6:33 BARGE MASTER AM BARGE MASTER Ino De Paz MD LAB BLOOD ORDERABLES Performing Organization Address City/State/ZIP Code Phon e Number [facility] Unless otherwise noted, [place] [address] [place] all lab tests performed by: Division of Pathology and Laboratory Medicine [facility]5 Jay Emm[place] Whyte Legionella Urine Antigen Path Review (07/08/2021 5:17 PM BARGE MASTER) Component Value Ref [facility] Method Time Signature Legionella Negative for L. pneumophila serogroup 1 antigen, suggesting no recent or current infection. However, infection due to other serogroups and species of Legionella are not detected by this assay. In additi [place] Urine Antigen on, antigen may not be present in the urine in early ANUJA Path Review infection and the level of antigen present in the urine may be below the detection limit of the test. [place] [facility] ... CENTER Reviewed and Electronically signed by Pathologist: Amaury Sinha MD, PhD #[id number] Comment: AMAURY SINHA MD, PhD - [id number] Dictated by: AMAURY SINHA MD, PhD - [phone] Dictated Date/Time: 07.11.2021 1:[address] Transcribed Date/Time: 07.11.2021 1:11 AM BARGE MASTER Electronically Signed By: AMAURY SINHA MD, PhD - [id number] on 07.11.2021 1:11 AM C Specimen Anatomical Collection Method Collection Time Receive d Time (Source) Location / / Volume Laterality Urine 07/08/2021 5:17 PM 2 4:26 BARGE MASTER PM BARGE MASTER Madelin Knight MD MICROBIOLOGY - GENERAL KENNESAWRuben [facility] Performing Organization Address City/State/ZIP Code Phon e Number [facility] Unless otherwise noted, [place] [address] CENTER all lab tests performed by: Division of Pathology and Laboratory Medicine [address] [place] [address] Streptococcal Urine Antigen Path Review (07/08/2021 5:17 PM BARGE MASTER) Component Value Ref Test Analysis Performed Pathologis t Range Method Time At Signature Streptococcal Presumptive negative for S. pneumoniae antigen in urine, suggesting no current or recent pneumococcal infection. Infection due to S. pneumoniae cannot be ruled out since the level of antigen present in [place] Urine Antigen the urine may be below the detection limit of the [place] Path Review test. CANCER ... CENTER Reviewed and Electronically signed by Pathologist: Amaury Sinha MD, PhD #[id number] Comment: AMAURY SINHA MD, PhD - [id number] Dictated by: AMAURY SINHA MD, PhD - [id number] [phone] Dictated Date/Time: 07.11.2021 1:[address] Transcribed Date/Time: 07.11.2021 1:11 AM BARGE MASTER Electronically Signed By: AMAURY SINHA MD, PhD - [id number] on 07.11.2021 1:11 AM C Specimen Anatomical Collection Method Collection Time Receive d Time (Source) Location / / Volume Laterality Urine 07/08/2021 5:17 PM 2 4:26 BARGE MASTER PM BARGE MASTER Madelin Knight MD MICROBIOLOGY - GENERAL CALVIN AJ Performing Organization Address City/[facility]/ZIP Code Phon e Number [facility] CANCER Unless otherwise noted, [address] all lab tests performed by: Division of Pathology and Laboratory Medicine Kinza Whyte Streptococcus pneumoniae Urine Antigen (07/08/2021 5:17 PM BARGE MASTER) Component Value Ref Test Analysis Performed At [facility] Signature Streptococcal Presumptive negative for S. pneumoniae antigen in the urine, suggesting no current or recent pneumococcal infection. However, infection due to S. pneumoniae cannot be completely ruled out since the leve [place] Urine Antigen l of antigen present in the urine may be below the ANUJA Interpretation detection limit of the test. CANCER CENTER Streptococcal Negative [facility] Urine Antigen [place] Interpretation [facility] CENTER Specimen Anatomical Collection Method Collection Time Receive d Time (Source) Location / / Volume Laterality Urine 07/08/2021 5:17 PM 2 7:39 BARGE MASTER PM BARGE MASTER Madelin Knight MD MICROBIOLOGY - GENERAL CALVIN AJ Performing Organization Address [facility] Phon e Number [facility] Unless otherwise noted, [address] all lab tests performed by: Division of Pathology [facility] HitchcockJay Emmarshall Whyte Legionella Urine Antigen (07/08/2021 5:17 PM BARGE MASTER) Component Value Ref Test Analysis Performed At [facility] Signature Legionella Urine Negative for L. pneumophila serogroup 1 antigen, suggesting no recent or current infection. However, infections due to other serogroups and species of Legionella are not detected by this assay. In addition, antigen may not be present in the urine in [place] Antigen early infection and the leve l of antigen present in the urine may be below the detection limit of the test. [place] Interpretation [facility] CENTER Legionella Urine Negative [facility] Antigen ANUJA Interpretation [facility] CENTER Specimen Anatomical Collection Method Collection Time Receive d Time (Source) Location / / Volume Laterality Urine 07/08/2021 5:17 PM 2 7:39 BARGE MASTER PM BARGE MASTER Madelin Knight MD MICROBIOLOGY - GENERAL CALVIN AJ Performing Organization Address City/[facility]/ZIP Code Phon e Number [facility] CANCER Unless otherwise noted, [address] all lab tests performed by: Division of Pathology and Laboratory Medicine [facility] Jay Emmarshall Whyte XR Abdomen AP (07/08/2021 1:31 PM BARGE MASTER) Anatomical Region Laterality Modality Abdomen Digital Radiography Specimen (Source) Anatomical Collection Method Collection Time Re ceived Time Location / / Volume Laterality 07/08/2021 1:32 PM BARGE MASTER Impressions 07/08/2021 1:34 PM BARGE MASTER Feeding tube tip overlying the gastric f undus. Recommend further advancement. Narrative 07/08/2021 1:34 PM BARGE MASTER FULL RESULT: Examination: XR ABDOMEN AP on [...] the gastric f undus. Recommend further advancement. Josette Vasquez MD IMG DIAGNOSTIC IMAGING ORDER YOVANI (ABNORMAL) POC Chem 8 without Hemoglobin and Hematocrit (07/08/2021 12:14 PM BARGE MASTER) P athologist Signature POC NA 131 (L) 138 - 146 POC TELCOR mEq/L POC K 2.3 (C) 3.5 - 4.9 POC TELCOR mEq/L Comment: Method description: The i-STAT is an husam lyzer used for in vitro quantification of various analytes in whole blood. The device uses a single disposable cartridge which contains microfabricated sensors, a calibration solution, fluidics system, and a waste chamber. Each test cartridge contains ch emically sensitive biosensors on a silicon chip that are configured to perform specific tests. The microfabricated sensors measure analyte concentration by an electrochemical assay. POC CL 81 (L) 98 - 109 mEq/L POC TELCOR POC VTCO2 32 (H) 24 - 29 mEq/L POC TELCOR POC Anion Gap 21 (H) 10 - 20 mmol/L POC TELCOR POC BUN 16 8 - 26 mg/dL POC TELCOR POC Crea 1.0 0.6 - 1.3 mg/dL POC TELCOR Comment: Medications, especially hydroxyurea or s upplements, such as ascorbate, can interfere with test results causing a falsely and significantly higher result than expected. If a problem is suspected with a patient's result, a sample should be sent to the laboratory for confirmatory testing. Method description: The i-STAT is an husam lyzer used for in vitro quantification of various analytes in whole blood. The device uses a single disposable cartridge which contains microfabricated sensors, a calibration solution, fluidics system, and a waste chamber. Each test cartridge contains ch emically sensitive biosensors on a silicon chip that are configured to perform specific tests. The microfabricated sensors measure analyte concentration by an electrochemical assay. POC eGFR-AA 87 >=60 mL/min/1.73 m2 POC TELC OR Comment: Normal eGFR >= 60 mL/min/1.73 m2 The eGFR is calculated using the CKD-EPI equation. The eGFR declines with age. eGFR <60 mL/min/1.73 m2 is considered as "decreased" This equation should only be used for patients 18 and older. According to the National Kidney Foundat ion's Kidney Disease Outcome Quality Initiative (KDOQI) classification and 2012 Kidney Disease Improving Global Outcomes (KDIGO) Clinical Practice Guideline, the stage of CKD should be categorized based on estimated GFR. Stage Description GFR mL/min/1.73 m2 1 Kidney damage with normal or high GFR >=90 2 Kidney damage with mild decrease in GF R 60-89 3a Mild to moderate decrease in GFR 45-59 3b Moderate to severe decrease in GFR 30-44 4 Severe decrease in GFR 15-29 5 Kidney failure <15 (or dialysis) POC eGFR-JOSELITO 75 >=60 mL/min/1.73 m2 POC TEL COR Comment: Normal eGFR >= 60 mL/min/1.73 m2 The eGFR is calculated using the CKD-EPI equation. The eGFR declines with age. eGFR <60 mL/min/1.73 m2 is considered as "decreased" This equation should only be used for patients 18 and older. According to the National Kidney Foundat ion's Kidney Disease Outcome Quality Initiative (KDOQI) classification and 2012 Kidney Disease Improving Global Outcomes (KDIGO) Clinical Practice Guideline, the stage of CKD should be categorized based on estimated GFR. Stage Description GFR mL/min/1.73 m2 1 Kidney damage with normal or high GFR >=90 2 Kidney damage with mild decrease in GF R 60-89 3a Mild to moderate decrease in GFR 45-59 3b Moderate to severe decrease in GFR 30-44 4 Severe decrease in GFR 15-29 5 Kidney failure <15 (or dialysis) POC Glucose 132 (H) 70 - 99 mg/dL POC TELCOR POC Ion Ca 1.00 (L) 1.12 - 1.32 mmol/L POC TELCOR POC Sample Type Venous POC TELCOR POC Clean Dev Yes POC TELCOR Performing Lab [facility] POC TELCO R Comment: [facility] Clinical Lab, [address] [place] [address]; Lab Direct or: Loida Chavez MD Specimen Anatomical Collection Method Collection Time Receive d Time (Source) Location / / Volume Laterality Blood 07/08/2021 12:14 07/08/2021 PM BARGE MASTER 12:14 PM BARGE MASTER Josette Vasquez MD POINT OF CARE TEST ORDERABLE S Performing Organization Address City/[facility]/ZIP Code Phon e Number POC TELCOR (ABNORMAL) D Dimer (07/08/2021 12:13 PM BARGE MASTER) P athologist Signature D-Dimer 0.77 (H) 0.10 - 0.50 [place] ANUJA mcg/ml [facility] Comment: Rechecked and Verified The cut off value for exclusion of venou s thromboembolism is <0.51 mcg/mL FEUs (fibrinogen equival ent units). Specimen Anatomical Collection Method Collection Time Receive d Time (Source) Location / / Volume Laterality Blood 07/08/2021 12:13 07/08/2021 PM BARGE MASTER 12:19 PM BARGE MASTER Olegario Rain MD LAB BLOOD ORDERABLES Performing Organization Address City/[facility] Phon e Number [facility] CANCER Unless otherwise noted, [address] all lab tests performed by: Division of Pathology and Laboratory Medicine [address] [place] [address] CT Head without Contrast (07/08/2021 11:05 AM BARGE MASTER) Anatomical Region Laterality Modality Head Computed Tomography Specimen (Source) Anatomical Collection Method Collection Time Re ceived Time Location / / Volume Laterality 07/08/2021 11:31 AM BARGE MASTER Impressions 07/08/2021 11:37 AM BARGE MASTER No acute intracranial abnormality. Narrative 07/08/2021 11:37 AM BARGE MASTER FULL RESULT: EXAMINATION: CT HEAD WO CONTRAST [...] are clear. IMPRESSION: No acute intracranial abnormality. Olegario Rain MD [facility] [place] ORDERABLES CKMB (06/22/2021 11:54 AM BARGE MASTER) P athologist Signature CK MB 2.6 <=10.4 [place] MD LICEA ng/mL CANCER CENTER Specimen Anatomical Collection Method Collection Time Receive d Time (Source) Location / / Volume Laterality Blood 06/22/2021 11:54 06/22/2021 AM BARGE MASTER 12:09 PM BARGE MASTER Susan Aguilar MD LAB BLOOD ORDERABLES Performing Organization Address City/State/ZIP Code Phon e Number [facility] CANCER Unless otherwise noted, [address] all lab tests performed by: Division of Pathology and Laboratory Medicine [address] [place] [address] Creatine Kinase (06/22/2021 11:54 AM BARGE MASTER) athologist [facility] CK 84 39 - 308 [facility] U/L [facility] Specimen Anatomical Collection Method Collection Time Receive d Time (Source) Location / / Volume Laterality Blood 06/22/2021 11:54 06/22/2021 AM BARGE MASTER 12:09 PM BARGE MASTER Susan Aguilar MD LAB BLOOD ORDERABLES Performing Organization Address City/[facility]/ZIP Code Phon e Number [facility] CANCER Unless otherwise noted, [address] all lab tests performed by: Division of Pathology and Laboratory Medicine [address] [place] [address] CT Head/Neck Simulation without Contrast (06/21/2021 9:00 AM BARGE MASTER)Only the most recent of2 resultswithin the time period is included. Specimen (Source) Anatomical Location Collection Method / Collectio n Time Received Time / Laterality Volume Narrative Systemgenerated, Documentation - 022 9:00 AM BARGE MASTER This procedure requires no interpretatio n from the radiologist. Alxeandra OSEGUERA IMG RO CT SIM ORDERABLES COVID-19 (MAURA-CoV-2) PCR Asymptomatic (05/11/2021 9:05 AM BARGE MASTER)Only the most recent of2 resultswithin the time period is included. Component Value Ref Range Test Analysis Performed Pathologis t Method Time At [facility] COVID19 SARS Pre-Out of OR ROMAN CRAWLEY Indication Procedure [facility] COVID19 SARS Not Detected Not ROMAN CRAWLEY Result Detected [facility] COVID19 SARS SARS-CoV-2 NOT Detected. [place] Interpretation ANUJA Reference Range: Not Detected [facility] Methodology: The Tape TV Real Time SARS-CoV-2 assay is a qualitative real-time reverse animal care worker polymerase chain reaction (rac specialist-PCR) test to detect RNA from SARS-CoV-2 in nasal, nasopharyngeal and oropharyngeal swabs from patients with signs and symptoms of infection who ar e suspected of COVID-19 by their health care provider. The Fontanez RealTime SARS-CoV-2 performed on the Oxxy000 System is a dual target assay with [...] high- complexity Molecular Diagnostics Laboratory (MDL) at [facility] under the Food and Drug Administration (FDA) s Emergency Use Authorization. Factsheet for patients: https://www.[facility].org/AbbottFac tSheetPatients Factsheet for healthcare pro viders: https://www.mdanderson.org/AbbottFactSheetHCP Test performed by: [facility] Molecular Diagnostic Lab [address] [place] [address] Specimen (Source) Anatomical Collection Method Collection Time Re ceived Time Location / / Volume Laterality Nasopharyngeal Swab 05/11/2021 9:05 05/11 AM BARGE MASTER 11:08 AM BARGE MASTER Alexandra OSEGUERA MICROBIOLOGY - GENERAL ORDER YOVANI Performing Organization Address City/State/ZIP Code Phon e Number [facility] CANCER Unless otherwise noted, [address] all lab tests performed by: Division of Pathology and Laboratory Medicine [address] [place] Orthopantogram (05/06/2021 10:53 AM BARGE MASTER) Specimen (Source) Anatomical Location Collection Method / Collectio n Time Received Time / Laterality Volume Narrative Systemgenerated, Documentation - 021 10:53 AM BARGE MASTER This procedure requires no interpretatio n from the radiologist. Elva Jovel DDS IMG NON DI ORDERABLES WAFER FABRICATOR Videostroboscopy (05/06/2021 9:58 AM BARGE MASTER) Narrative OLYMPUS - 05/06/2021 9:58 AM BARGE MASTER Sara Harris, PhD 05/06/2021 10:12 AM WAFER FABRICATOR Videostroboscopy Laterality (if applicable): right Date/Time: 05/06/2021 9:58 AM Provider Information: Performed by: Sara Harris, PhD Authorized by: OUMAR Staples Indication: Indications for procedure: abnormal symp paulo Abnormal symptom: dysphonia Anesthesia: Local anesthesia used?: local anesthesia used Anesthesia: topical application Local anesthetic: lidocaine spray Sedation: Patient sedated?: patient not sedated Alexandra OSEGUERA WAFER FABRICATOR ORDERABLES Performing Organization Address [facility] Phon e Number OLYMPUS Glucose, Random (05/04/2021 11:10 AM BARGE MASTER) athologist Signature Glucose Random 136 70 - 199 [facility] mg/dL [facility] CENTER Comment: Effective 12/29/15, the glucose reference intervals have been updated based on [place] Diabetes [employer] guidelines (Standards of Medical Care in Diabetes 2016. Diabetes Care 2016; 39: S13-S22). Fasting blood glucose: Normal: 70-99 mg/dL Impaired fasting glucose (increased risk for diabetes or pre-diabetes): 100- 125 mg/dL Diabetes mellitus: >/=126 mg/dL Random blood glucose: Normal: 70-199 mg/dL Note: Random glucose >100 mg/dL is assoc iated with increased risk for diabetes Specimen Anatomical Collection Method Collection Time Receive d Time (Source) Location / / Volume Laterality Blood 05/04/2021 11:10 05/04/2021 AM BARGE MASTER 12:08 PM BARGE MASTER Narrative [facility] - 12:55 PM BARGE MASTER Not fasting Yumi Desir MD LAB BLOOD ORDERABLES Performing Organization Address City/[facility]/ZIP [facility] Phon e Number [facility] CANCER Unless otherwise noted, [place] [address] [address] all lab tests performed by: Division of Pathology and Laboratory Medicine [address] [place] [address] Isabell Vitamin D 25OH (05/04/2021 11:10 AM BARGE MASTER) P athologist Signature Vitamin D 25 OH 42 30 - 100 [facility] ng/mL CANCER CENTER Comment: Reference Range: Deficiency: <10 ng/mL Insufficiency: 10-29 ng/mL Sufficiency: 30-100 ng/mL Potential toxicity: >100 ng/mL Specimen Anatomical Collection Method Collection Time Receive d Time (Source) Location / / Volume Laterality Blood 05/04/2021 11:10 05/04/2021 AM BARGE MASTER 12:01 PM BARGE MASTER Yumi Desir MD LAB BLOOD ORDERABLES Performing Organization Address City/State/ZIP Code Phon e Number [facility] CANCER Unless otherwise noted, [place] [address] CENTER all lab tests performed by: Division of Pathology and Laboratory Medicine [facility] [facility] Ab Path Interp (05/03/2021 8:26 AM BARGE MASTER) [facility] Method Time Signature HCV Ab Path There is NO [facility] serologic [facility] evidence of Hepatitis C virus antibody. Comment: RUFINO FERNANDEZ, Dictated by: RUFINO FERNANDEZ, Dictated Date/Time: 05.04.2021 6:[address] Transcribed Date/Time: 05.04.2021 6:33 AM BARGE MASTER Electronically Signed By: RUFINO FERNANDEZ, on 05.04.2021 6:33 AM C Specimen Anatomical Collection Method Collection Time Receive d Time (Source) Location / / Volume Laterality Blood 05/03/2021 8:26 AM BARGE MASTER 10:40 PM BARGE MASTER Alexandra OSEGUERA LAB BLOOD ORDERABLES Performing Organization Address City/State/ZIP Code Phon e Number [facility] [place] [address] [place] [address] Hepatitis C Virus Ab (05/03/2021 8:26 AM BARGE MASTER) [facility] Method Time Signature HCVAb. Non Reactive Non Reactive [facility] Comment: Antibody detection in the immunocompromi sed and immunosuppressed population may be delayed or absent entirely. Therefore serial testing, correlation with other clinical findings, and supplemental testin g (if available) should be taken into co nsideration when interpreting the results. Performed at: [facility] [address] [place] [address] Specimen Anatomical Collection Method Collection Time Receive d Time (Source) Location / / Volume Laterality Blood 05/03/2021 8:26 AM BARGE MASTER 10:40 PM BARGE MASTER Alexandra OSEGUERA LAB BLOOD ORDERABLES Performing Organization Address City/State/ZIP Code Phon e Number [facility] [address] [place] [address] POC Creatinine (05/03/2021 6:56 AM BARGE MASTER) athologist Signature POC Crea 1.2 0.6 - 1.3 POC TELCOR mg/dL Comment: Medications, especially hydroxyurea or s upplements, such as ascorbate, can interfere with test results causing a falsely and significantly higher result than expected. If a problem is suspected with a patient's result, a sample should be sent to the laboratory for confirmatory testing. Method description: The i-STAT is an husam lyzer used for in vitro quantification of various analytes in whole blood. The device uses a single disposable cartridge which contains microfabricated sensors, a calibration solution, fluidics system, and a waste chamber. Each test cartridge contains ch emically sensitive biosensors on a silicon chip that are configured to perform specific tests. The microfabricated sensors measure analyte concentration by an electrochemical assay. POC eGFR-AA 70 >=60 mL/min/1.73 m2 POC TELC OR Comment: Normal eGFR >= 60 mL/min/1.73 m2 The eGFR is calculated using the CKD-EPI equation. The eGFR declines with age. eGFR <60 mL/min/1.73 m2 is considered as "decreased" This equation should only be used for patients 18 and older. According to the National Kidney Foundat ion's Kidney Disease Outcome Quality Initiative (KDOQI) classification and 2012 Kidney Disease Improving Global Outcomes (KDIGO) Clinical Practice Guideline, the stage of CKD should be categorized based on estimated GFR. Stage Description GFR mL/min/1.73 m2 1 Kidney damage with normal or high GFR >=90 2 Kidney damage with mild decrease in GF R 60-89 3a Mild to moderate decrease in GFR 45-59 3b Moderate to severe decrease in GFR 30-44 4 Severe decrease in GFR 15-29 5 Kidney failure <15 (or dialysis) POC eGFR-JOSELITO 60 >=60 mL/min/1.73 m2 POC TEL COR Comment: Normal eGFR >= 60 mL/min/1.73 m2 The eGFR is calculated using the CKD-EPI equation. The eGFR declines with age. eGFR <60 mL/min/1.73 m2 is considered as "decreased" This equation should only be used for patients 18 and older. According to the National Kidney Foundat ion's Kidney Disease Outcome Quality Initiative (KDOQI) classification and 2012 Kidney Disease Improving Global Outcomes (KDIGO) Clinical Practice Guideline, the stage of CKD should be categorized based on estimated GFR. Stage Description GFR mL/min/1.73 m2 1 Kidney damage with normal or high GFR >=90 2 Kidney damage with mild decrease in GF R 60-89 3a Mild to moderate decrease in GFR 45-59 3b Moderate to severe decrease in GFR 30-44 4 Severe decrease in GFR 15-29 5 Kidney failure <15 (or dialysis) POC Clean Dev Yes POC TELCOR Performing Lab Radiology OP CTR POC TELC OR Comment: Radiology OP CTR [facility], [address] [place] [address]; Point of Care Ladderman: Brooke Owens MD Specimen Anatomical Collection Method Collection Time Receive d Time (Source) Location / / Volume Laterality Blood 05/03/2021 6:56 AM 6:56 BARGE MASTER AM BARGE MASTER Alexandra OSEGUERA POCT ORDERABLES - DEVICE Performing Organization Address City/State/ZIP Code Phon e Number POC TELCOR OSI PET CT Skull to Mid Thigh (04/07/2021 1:24 PM CDT) Specimen (Source) Anatomical Location Collection Method / Collectio n Time Received Time / Laterality Volume Narrative Systemgenerated, Documentation - 021 1:24 PM BARGE MASTER Study acquired at another institution. For comparison only. No [facility] [place] originated interpretation requested or a vailable. Olivia Coleman DO IMG OUTSIDE IMAGE ORDERABLES Pathology Outside Interpretation (03/28/2021) Component Value Ref Test Analysis Performed Pathologis t Range Method Time At Signature Materials Accession#, Stained, Block, Unstained Collected Received 06/13/2021 [facility] Received A. [id number], 6 SS, 0 BLOCKS, 0 USS 03/28/2021 04/20/2021 2:17 PM BARGE MASTER Addendum 1 Additional material received on 05/25/2021, Outside 0 SS, 3 BLOCK, 0 USS, collected on 03/28/2021. 06/13/2021 [facility] Addendum 2:17 PM electronic ally Deeper levels of block (21:I [id number]) were examined. The original diagnosis remains unchanged. BARGE MASTER signed by Rigo ruiz MD on 06/13 at 2:17 PM Diagnosis Outside ([id number], 6 SS): 06/13/2021 [facility] Electronically 2:17 PM signed by Rigo Larynx, right arytenoid, biopsy (A): BARGE MASTER Sami Pritchard, SQUAMOUS CELL CARCINOMA, suspicious for invasion MD on 04/21/2021 at 4:09 PM Larynx, left arytenoid, biopsy (B): Squamous mucosa with chronic inflammation, negative for tumo r Larynx, left false vocal cord, biopsy (C): Squamous mucosa and minor salivary gland, negative for tumor [facility]/N Mechanical Development Engineer(s) Dr. Antonio 06/13/2021 [facility] HONG Hollingsworth has 2:17 PM reviewed part A BARGE MASTER and concurs. Biomarker T: A 06/13/2021 [facility] Block(s) N: C 2:17 PM BARGE MASTER Disclaimer "Some tests 06/13/2021 [facility] reported here may 2:17 PM have been BARGE MASTER developed and performance characteristics determined by [facility] Pathology and Laboratory Medicine. These tests have not been specifically cleared or approved by the U.S. Food and Drug Administration. If applicable, controls were reviewed and showed appropriate reactivity." Specimen (Source) Anatomical Collection Method Collection Time Re ceived Time Location / / Volume Laterality Tissue 03/28/2021 04/20/2021 1:07 PM BARGE MASTER Korina Pastor MD LAB PATHOLOGY ORDERABLES Performing Organization Address City/State/ZIP Code Phon e Number [facility] [place] [address] [address] [place] after 01/13/2021 Insurance Payer Benefit Plan Subscriber ID Effective Phone Address Typ e / Group Dates MEDICARE MEDICARE PART [id number] 2014-Prese [phone] [place]OV[place] Medicare A AND B nt 82 SOLUTIONS [address] [place] [id number] MUTUAL OF MUTUAL OF [id number] 2015-Prese [id number] [facility] iga [place]PP[place] nt [place] [address] Advance Directives Type Date Recorded Patient Imaging Nurse Explanati on Advance Directives: 11/08/2021 Medical Dandre r of [employer] Medical Power of [employer] Helper Code Status Date Activated Date Inactivated Comments Full Code 11/08/2021 2:27 PM 11/12/2021 5:56 PM Full Code 10/15/2021 1:48 AM 10/27/2021 8:21 PM Full Code 08/26/2021 7:24 PM 08/31/2021 6:23 PM Full Code 08/25/2021 9:45 PM 08/26/2021 7:24 PM Full Code 07/08/2021 4:32 PM 07/12/2021 11:02 PM Care Teams Nutrition Professor Relationship Specialty Start Date End Date Olivia Coleman DO PCP - External Otolaryngology 04/13/21 [address] [place], [place] [id number] Slava Canseco, PCP - General Radiation Oncology 04/25/[address] [place] [phone] Yumi Desir MD Consulting Physician Head and Neck Medical 05/13/[address] [place] [address] Oncology [place], [place] [id number] Ene Polk MD Consulting Physician Head and Neck Surgery 05/13/[address] [place] [phone] Camilla Davenport, Clinical Dietitian Nutrition 07/19/[address] [place] [address] [address] [place] [address] Anca Maurer, Nurse Practitioner Head and Neck Medical 08/15/21 [employer]ER DRAM[employer] Oncology [address] [place] [phone] Michael Lam, Consulting Physician Gastroenterology, 09/05/21 Hepatology and Nutrition [address] [place] [phone] Brady Payan, Consulting Physician Gastroenterology, 09/07/21 Hepatology and Nutrition [address] [place] [id number]
--- OUTSIDE RECORDS SUMMARY | 2022-01-13 14:46 | XMS REPORT | Continuity of Care Document ---
:1950 Author Organization [facility] t Address [address] [place] [address] Care Team Providers Name Role Phone [phone] Primary Care Physician Unavailable SYSTEM, PROVIDER NOT IN Attending Clinician Unavailable Alanna Bullard Attending Clinician Unavailable INO DE PAZ Attending Clinician Unavailable KOSTA AHUJA Attending Clinician Unavailable Kosta Ahuja MD Attending Clinician Slava Ariza MD Attending Clinician Mj Azevedo RN Attending Clinician Unavailable SLAVA ARIZA Attending Clinician Unavailable Sarah Rudd RN Attending Clinician Unavailable Richard Thomas Attending Clinician Davis Munoz RN Attending Clinician Unavailable Ene Polk MD Attending Clinician Steven PhD, Sara Kinney Attending Clinician [phone] ENE POLK Attending Clinician Unavailable Nevin Hollingsworth RN Attending Clinician Unavailable Bird Lawton RN Attending Clinician Jerry NEWTON, Leobardo Wilburn Attending Clinician Lora PA, Jose Luis S Attending Clinician LORAJOSE LUIS Zafar S Attending Clinician Unavailable Heena CRAWLEY, Clement Rivera Attending Clinician Wendi CRAWLEY, Cintia Attending Clinician Andres [facility]-ECONOMICS ANALYST, Kita Sullivan Attending Clinician [phone] Jitendra Prieto MD Attending Clinician Douglas RN, Syeda Cole Attending Clinician Unavailable JITENDRA PRIETO Attending Clinician Unavailable Veronica KHALIL, Liliana Attending Clinician Alexandra Miller Attending Clinician Hilario Pardo MD Attending Clinician Genaro CRAWLEY, Shilo Attending Clinician Unavailable Nay BOWENS, Jazzmine Singh Attending Clinician Gaurav CRAWLEY, Aaron Richmond Attending Clinician Cleveland CRAWLEY, Shailesh Attending Clinician Huan BOWENS, Zafar Attending Clinician Unavailable Darrick CRAWLEY, Nilam Ruby Attending Clinician [phone] Chevy Dawson CRNA Attending Clinician Stephanie [facility]-ECONOMICS ANALYST, Rebecca Singh Attending Clinician Unavailable Oralia Javier Attending Clinician Kiah CRAWLEY, Cody Attending Clinician Ramírez CRAWLEY, Sofya Gallego Attending Clinician Eugene CRAWLEY, Sharlene Serra Attending Clinician [phone] Vivian CRAWLEY, Amber Attending Clinician Mcghee NP, Shirley Gallego Attending Clinician Krish CRAWLEY, Link Attending Clinician Louie CRAWLEY, Yong Attending Clinician Marcello CRAWLEY, Padmini Attending Clinician Priscilla CRAWLEY, Eddie Witt Attending Clinician Harman PRIVACY COMPLIANCE MANAGER, Elizabeth Attending Clinician Gloria BOWENS, Wayne Singh Attending Clinician Sarbjit BOWEN, Link Attending Clinician Adele Christensen Attending Clinician Jordan CCC-ECONOMICS ANALYST, Roberta Attending Clinician Ethel BOWEN, Camilla Kinney Attending Clinician NKECHI RAYA Attending Clinician Unavailable Jaelyn CRAWLEY, Nkechi Miranda Attending Clinician Loy MENDEZ, Rachid Castaneda Attending Clinician Unavailable ALEXANDRA DAWSON Attending Clinician Unavailable Candy Lew Attending Clinician Jose OSEGUERA, Caprice Holm Attending Clinician Huan Clemons Attending Clinician Unavailable Cathleen [facility]-ECONOMICS ANALYST, Crista Cole Attending Clinician Unavailable Erasto MELENDEZN, Anca H Attending Clinician Dejan BOWENS, April Bertrand Attending Clinician Unavailable DAVIS RUSH Attending Clinician Unavailable Ghassan CRAWLEY, Alta Bertrand Attending Clinician Koffi CRAWLEY, Olegario Gamez Attending Clinician Rajendra Brooks MD, Susan Attending Clinician Robert Rashid MD Attending Clinician Davis Rush MD Attending Clinician Michael Lam MD Attending Clinician Callum [facility]-ECONOMICS ANALYST, Caprice Singh Attending Clinician Unavailable Sara Deras MD Attending Clinician Zach Mandujano CRNA Attending Clinician SUSAN TORO Attending Clinician Unavailable LLOYD PEREZ Attending Clinician Unavailable Carina CCC-ECONOMICS ANALYST, Sara Attending Clinician [phone] Lloyd Buck Attending Clinician Eric BOWENS, Margo Rich Attending Clinician Unavailable Piero CRAWLEY, Johanne Attending Clinician YUMI LORENZ Attending Clinician Unavailable Gerda CRAWLEY, Yumi Attending Clinician CINTIA ADAME Attending Clinician Unavailable Christina CRAWLEY, Josette Attending Clinician Zandra CRAWLEY, Ino Attending Clinician [phone] Leobardo RN, Eliza Attending Clinician Leela BOWENS, Shwetha Castaneda Attending Clinician Unavailable Nancy ANDRÉS, Maame Jamil Attending Clinician Kp BOWENS, Ten Rivera Attending Clinician Unavailable Yajaira BOWENS, Erica Attending Clinician Unavailable Irene CRAWLEY, Caprice Antonio Attending Clinician [phone] Francisco BOWENS, Christy Gallego Attending Clinician Unavailable PAT WASHINGTON Attending Clinician Unavailable BELA WU Attending Clinician Unavailable Jerel CRAWLEY, Bela Attending Clinician Katie BOWENS, Sam Garzon Attending Clinician Unavailable Alyse Polk PharmD Attending Clinician [phone] Kathy CCC-ECONOMICS ANALYST, Christy Miranda Attending Clinician [phone] Yue Alaniz RN Attending Clinician Unavailable Melvina CRAWLEY, Romeo Castaneda Attending Clinician YUE PRUITT Attending Clinician Unavailable Favio CRAWLEY, Yue Eagle Attending Clinician Clint Grove MD Attending Clinician [place] Attending Clinician Unavailable ANNA CARDOSO Attending Clinician Unavailable Galo BOWENS, Cole Attending Clinician Unavailable Roc James RN Attending Clinician Unavailable Patrick CRAWLEY, Caprice Cardona Attending Clinician Song CCC-ECONOMICS ANALYST, Cady Sullivan Attending Clinician Unavailable Jane Hill Attending Clinician [phone] Thao Baldwin MA Attending Clinician Unavailable Arina Robles Attending Clinician Unavailable Zahra CRAWLEY PhD, Jose Martin Ortiz Attending Clinician [phone] LEONID SALINAS Attending Clinician Unavailable ELVA AHUMADA Attending Clinician Unavailable Med DDS, Elva Attending Clinician Josse CRAWLEY, Dixie Fierro Attending Clinician [phone] Darrick RN, Trixie Kinney Attending Clinician Troy CRAWLEY, Yesenia Tena Attending Clinician Ezra CRAWLEY, Steve Ambriz Attending Clinician Dawit CRAWLEY, Korina Attending Clinician CINTIA ADAME Admitting Clinician Unavailable SHARLENE KNIGHT Admitting Clinician Unavailable Payers Payer Name Policy Type Policy Number Effective Date Expiration Date Skinny sanchez MEDICARE PART A [id number] 2014 AND B 00:00:00 LUCIA BETTY PEPPER [id number] 2015 00:00:00 Problems Condition Condition Condition Status Onset Resolution Last Treating Co mments Source Name Details Category Date Date Treatment Clinician Date Fistula Fistula Disease Active Univers 7 ity of 00:00: [place] 00 [facility] Cellulitis Cellulitis Disease Active U nivers of neck of neck 12-22 ity of 00:00: 00 MD Jeanmarie patel [facility] Nicotine Nicotine Disease Active Unive rs dependence dependence 11-09 it y of , , 00:00: [place] cigarettes cigarettes 00 , , [facility]ie uncomplica uncomplica [facility] Fatigue Fatigue Disease Active Last Univers 11-08 Assessmen ity of 00:00: t & Plan: [place] 00 Demi CRAWLEY g of this Jeanmarie note n might be Cancer different Center from the original. Will evaluate for obstructi ve sleep apnea with Home sleep Study. Dyspnea Dyspnea Disease Active Overview: Univ ers 11-08 Formattin ity of 00:00: g of this [place] brandy CRAWLEY might be Jeanmarie different n from the Cancer original. Center Added automatic ally from request for surgery [id number] Hypercapni Hypercapni Disease Recurre Univers a a nce 5-22 ity of 00:00: [place] 00 MD Jeanmarie patel [facility] Aortic Aortic Disease Recurre Univers valve valve nce 5-18 ity of stenosis stenosis 00:00: [place] 00 MD Jeanmarie patel [facility] Chronic Chronic Disease Recurre Univer s diastolic diastolic nce 5-18 ity of heart heart 00:00: [place] failure failure 00 MD Jeanmarie patel [facility] Acute and Acute and Disease Active Uni vers chronic chronic 5-17 ity of respirator [place] failure y failure 00 with with Andreginaldo hypercapni hypercapni n a a [facility] Orthostati Orthostati Disease Active U nivers c c 5-14 ity of hypotensio hypotensio 00:00[place] n n 00 MD Jeanmarie patel [facility] Acute Acute Disease Active Univers posthemorr posthemorr 5-14 it y of hagic hagic 00:00: [place] anemia anemia 00 MD Jeanmarie patel [facility] Lower Lower Disease Active Univers gastrointe gastrointe 5-14 it y of stinal stinal 00:00: [place] hemorrhage hemorrhage 00 MD Jeanmarie patel [facility] Hyposmolal Hyposmolal Disease Active U nivers ity and/or ity and/or 5-14 it y of hyponatrem hyponatrem 00:00[place] 00 MD Jeanmarie patel [facility] Hypopharyn Hypopharyn Disease Active Overview : Univers geal geal 5-13 Formattin ity of lesion lesion 00:00: g of this 00 note might be [place]ie aguirre n from the Cancer original. Center Added automatic ally from request for surgery [id number] Breathing- Breathing- Disease Active U nivers related related 5-11 ity of sleep sleep 00:00: [place] disorder disorder 00 MD Jeanmarie patel [facility] Gastrostom Gastrostom Disease Active U nivers y present y present 5-11 ity of 00:00: [place] 00 MD Jeanmarie patel [facility] Ex-smoker Ex-smoker Disease Active Uni vers for less for less 5-11 ity of than 1 than 1 00:00: [place] year year 00 MD Jeanmarie patel [facility] Melena Melena Disease Active Univers 3-25 ity of 00:00: [place] 00 MD Jeanmarie patel [facility] Aspiration Aspiration Disease Active U nivers pneumonia pneumonia 2-06 ity of 00:00: [place] 00 MD Jeanmarie patel [facility] 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 Swallowing Swallowing Disease Active U nivers painful painful 1-05 ity of 00:00: [place] 00 MD Jeanmarie patel [facility] Hypomagnes Hypomagnes Disease Active U nivers emia emia 1-05 ity of 00:00: [place] 00 MD Jeanmarie patel [facility] Bilateral Bilateral Disease Active Uni vers tinnitus tinnitus 1-05 ity of 00:00: [place] MD [facility] Neuropathy Neuropathy Disease Active U nivers due to due to 1-05 ity of type 2 type 2 00:00: [place] diabetes diabetes 00 mellitus mellitus [facility] Multiple Multiple Disease Active 2020-06 Unive rs nodules of nodules of 2-08 it y of lung lung 00:00: [place] 00 MD Jeanmarie patel [facility] 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 Laryngopha Laryngopha Disease Active 2020-06 U nivers ryngeal ryngeal 1-23 ity of reflux reflux 00:00: [place] 00 MD [facility] Essential Essential Disease Recurre Un danae hypertensi hypertensi nce 5-15 it y of on on 00:00: [place] 00 MD [facility] Coronary Coronary Disease Recurre Univ ers arterioscl arterioscl nce 5-09 it y of erosis erosis 00:00: [place] 00 MD [facility] Chronic Chronic Disease Recurre 2015-06 Last Univer s obstructiv obstructiv nce 1-23 Assessmen ity of e e 00:00: t & Plan: [place] pulmonary pulmonary 00 Formattin M D disease disease g of this Jorge so note n might be Cancer different Center from the original. Patient has moderate obstructi ve defect, air trapping, and severely reduce diffusion capacity on PFT's.Rec ommend that patient start inhaled therapy with a LABA, LAMA, and ICS. Will initiate on Trelegy Ellipta daily and recommend use of albuterol nebs and inhaler up to 4 times as needed for SOB. Will prescribe Hypersal 7 % to Floor 10 pharmacy and recommend patient initiate use bid.Admin istered 1 treatment with Hyperal in clinic and patient reported improveme nt in mucocilia ry clearance and breathing . 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 diabetes nce 1-22 ity of mellitus mellitus 00:00: [place] without without 00 complicati complicati Yue senior on on n [facility] Nicotine Nicotine Disease Resolve 2020-062021-10-12 2021-10-12 Univers dependence dependence d 2- 00:00:00 20:35:04 ity of 00:00: [place] 00 MD Jeanmarie patel [facility] Acute Acute Disease Resolve 2021-08-27 2021-08-27 Univers hypoxemic hypoxemic d - 00:00:00 14:15:25 [place]y of respirator respirator [place] failure y failure 00 MD Jeanmarie patel [facility] Disorder Disorder Disease Resolve 2021-08-27 2021-08-27 Univers of fluid of fluid d 2-04 00:00:00 14:15:36 it y of AND/OR AND/OR 00:00: [place] electrolyt electrolyt 00 MD e e Anderso patel [facility] Syncope Syncope Disease Resolve 2021-08-27 2021-08-27 Univers d 2-04 00:00:00 14:15:54 ity of 00:00: [place] 00 MD Jeanmarie patel [facility] Serum Serum Disease Resolve 2021-08-27 2021-08-27 Univers creatinine creatinine d - 00:00:00 14:15:51 ity of raised raised 00:00: [place] 00 MD Jeanmarie patel [facility] Thick Thick Disease Resolve 2021-06-29 2021-06-29 Univers sputum sputum d 06-29 00:00:00 13:45:12 ity of 00:00: [place] 00 MD Jeanmarie patel [facility] Diverticul Diverticul Disease Resolve 2021-06-29 2021-06-29 Univers osis of osis of d 06-29 00:00:00 13:44:41 ity of colon colon 00:00: [place] 00 MD Jeanmarie patel [facility] History of History of Disease Resolve 2021-06-29 2021-06-29 Univers polyp of polyp of d 06-29 00:00:00 13:44:44 it y of colon colon 00:00: [place] 00 MD Jeanmarie patel [facility] Impotence Impotence Disease Resolve 2021-06-29 2021-06-29 Univers of organic of organic d 06-29 00:00:00 13:44:48 ity of origin origin 00:00: [place] 00 MD Jeanmarie patel [facility] Intermitte Intermitte Disease Resolve 2021-06-29 2021-06-29 Univers nt nt d 06-29 00:00:00 13:44:51 ity of claudicadanyell clauddomitilati 00:00: [place] on MD Jeanmarie patel [facility] Iron Iron Disease Resolve 2021-06-29 2021-06-29 Univers deficiency deficiency d 06-29 00:00:00 13:44:54 ity of anemia anemia 00:00: [place] 00 MD Jeanmarie patel [facility] 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 d 06-29 00:00:00 13:44:57 ity of emia emia 00:00: [place] 00 MD Jeanmaire patel [facility] Obese Obese Disease Resolve 2021-06-29 2021-06-29 Univers d 06-29 00:00:00 13:45:01 ity of 00:00: [place] 00 MD Jeanmarie patel [facility] Peripheral Peripheral Disease Resolve 2021-06-29 2021-06-29 Univers vascular vascular d 06-29 00:00:00 13:45:05 it y of angioplast angioplast 00:[place] status y status 00 with with Anderso implants implants n and grafts and grafts [facility] Center Seasonal Seasonal Disease Resolve 2021-06-29 2021-06-29 Univers allergic allergic d 06-29 00:00:00 13:44:24 it y of rhinitis rhinitis 00:00: [place] 00 MD Jeanmarie patel [facility] Tinnitus Tinnitus Disease Resolve 2021-06-29 2021-06-29 Univers d 06-29 00:00:00 13:45:21 ity of 00:00: [place] 00 MD Jeanmarie patel [facility] Tobacco Tobacco Disease Resolve 2020-062021-06-29 2021-06-29 Univers use use d 06-26 00:00:00 13:45:24 ity of 00:00: [place] 00 MD Jeanmarie patel [facility] Peripheral Peripheral Disease Resolve 2021-06-29 2021-06-29 Univers arterial arterial d 10-10 00:00:00 13:44:30 it y of occlusive occlusive 00:00[place] disease disease 00 MD Jeanmarie patel [facility] Peripheral Peripheral Disease Resolve 2021-06-29 2021-06-29 Univers vascular vascular d 10-10 00:00:00 13:44:34 it y of disease disease 00:00: [place] 00 MD Jeanmarie patel [facility] Type 2 Type 2 Disease Resolve 2020-062021-06-01 2021-06-01 Univers diabetes diabetes d - 00:00:00 14:19:44 it y of mellitus mellitus 00:00: [place] in obese in obese [address] [facility] Allergies, Adverse Reactions, Alerts Allergy Allergy Status Severity Reaction(s) Onset Inactive Treating Comm ents Source Name Type Date Date Clinician Ultram Adverse Active Info Not Common Reaction Available [facility] Family History Family Member Diagnosis Comments Start Date Stop Date Source Natural mother Breast cancer Univers ity of [facility] Social History Social Habit Start Date Stop Date Quantity Comments Source Exposure to 2022-01-02 2022-01-12 Not sure University of SARS-CoV-2 (event) 00:00:00 14:06:00 [facility] Alcohol intake 2021-12-09 2021-12-09 Ex-drinker University of 00:00:00 00:00:00 (finding) Donn bundy [facility] Cigarettes smoked 2021-10-08 2021-10-08 Univers ity of current (pack per 00:00:00 00:00:00 [place] Samantha Rivera ) - Reported Cancer Ce nter Cigarette 2021-10-08 2021-10-08 University of pack-years 00:00:00 00:00:00 [place] MD Jorge bundy [facility] Tobacco use and 2021-10-08 2021-10-08 Smokeless Universit y of exposure 00:00:00 00:00:00 tobacco non-user [facility] History of tobacco 1974-05-09 2021-09-30 Current smoker Un iversity of use 00:00:00 00:00:00 [place] MD Jorge bundy [facility] Sex [birth year] M Universit y of 00:00:00 00:00:00 Donn bundy [facility] Smoking Status Start Date Stop Date Source Ex-smoker 2021-10-08 00:00:00 2021-10-08 00:00:00 Universi ty of [facility] Medications Ordered Filled Start Stop Current Ordering Indication Dosage Frequency Signature Comments Components Source Medication Medication Date Date Medication? Clinician (SIG) Name Name albuterol Yes 2{puff} Inhale 2 U nivers (VENTOLIN 8-11 puffs by ity of HFA,PROAIR 12:22: mouth Donn HFA) 90 07 every 6 mcg/puff (six) Anderso inhaler hours as n needed. Cancer Center metroNIDAZO 2021- No Cellulitis 500mg 1 tablet Univers LE (FlagyL) 7-21 08-12 of neck (500 mg) ity of 500 mg 00:00: 04:59 by feeding [place] tablet 00 :00 tube route twice Anderso daily for n 21 days. Cancer Center cyclobenzap Yes Primary 5mg Take 1 U nivers rine 7-15 squamous tablet (5 ity of (FLEXERIL) 00:00: cell mg) by [place] 5 mg tablet 00 carcinoma mouth of larynx nightly as Arthur rso needed n (muscle Cancer pain). Center sulfamethox 0 2021- No Primary 1{tbl} Take 1 Univers azole-trime 12-16 07-26 squamous tablet by ity of thoprim 00:00: 04:59 cell mouth [place] (Bactrim 00 :00 carcinoma twice MD FARNSWORTH) 800 of larynx daily for An derso mg-160 mg 10 days. n per tablet Cancer Center sodium Yes Chronic 4mL Inhale the Un danae chloride 7 12-09 obstructive contents ity of % 00:00: pulmonary of 1 vial Al as (Hyper-Marcela) 00 disease, (4 mL by) nebulizer not nebulizati [place] rso solution otherwise on twice n specified daily. Cancer Center predniSONE 2021- No Chronic 40mg Take 2 U nivers (DELTASONE) 12-09 07-21 obstructive tablets ity of 20 mg 00:00: 04:59 pulmonary (40 mg) by [place] tablet 00 :00 disease, mouth not daily for Anderso otherwise 5 days. n specified Crush and Cance r administer Center through feeding tube polyethylen Yes Constipatio TAKE ONE Univers e glycol 6-20 n, not (1) CAPFUL ity of (GLYCOLAX) 00:00: otherwise MIXED WITH [place] 17 specified WATER BY gram/dose MOUTH 3 Anderso powder TIMES n DAILY. Cancer Center amoxicillin 0 2021- No Cellulitis 875mg Take 10.9 Univers -clavulanat 6-11 06-19 of neck mL (875 i ty of e 00:00: 04:59 mg) by Donn (AUGMENTIN) 00 :00 mouth 400 mg-57 twice Anderso mg/5 mL daily for n suspension 7 days. Cancer Center nut.tx.gluc Yes Laryngophar 375mL Give 375 Univers intol,lf,so 6-10 yngeal mL per ity of y/fiber 00:00: reflux G-tube 4 [place] (diabetisou 00 (four) rce AC) times a Anderso enteral day. n tube Cancer feeding Center acetaminoph Yes Shortness 500mg Take 1 Univers en (Tylenol 6-10 of breath tablet i ty of Extra 00:00: (500 mg) [place] Strength) 00 by mouth MD 500 mg every 6 Anderso tablet (six) n hours as Cancer needed for Center mild pain, moderate pain or headaches. traMADol Yes Oral 50mg 1 tablet Unive rs (ULTRAM) 50 609 mucositis (50 mg) by ity of mg tablet 00:00: due to feeding [place] 00 radiation tube route MD every 6 Anderso (six) n hours as Cancer needed for Center severe pain. HYDROcodone Yes Oral 1{tbl} 1-2 Univ ers -acetaminop 09 mucositis tablets by ity of hen (NORCO) 00:00: due to feeding [place] 5 mg-325 mg 00 radiation tube route MD per tablet every 8 Chucky o (eight) n hours as Cancer needed for Center severe pain. ondansetron Yes Primary 8mg 1 tablet Univers (ZOFRAN) 8 09 squamous (8 mg) by ity of mg tablet 00:00: cell feeding [place] 00 carcinoma tube route MD of larynx every 8 Anderso (eight) n hours as Cancer needed for Center nausea or vomiting. ondansetron 2021- No Primary 8mg 1 tablet Univers (ZOFRAN) 8 - 06-09 squamous (8 mg) by ity of mg tablet 00:00: 00:00 cell feeding [place] 00 :00 carcinoma tube route MD of larynx every 8 Anderso (eight) n hours as Cancer needed for Center nausea or vomiting. fluticasone Yes Chronic 1{puff} Inhale 1 Univers -umeclidin- 11-07 obstructive puff by ity of vilanter 00:00: pulmonary mouth [place] as (Trelegy 00 disease, daily. MD Mustafa) not Anderso 200-62.5-25 otherwise n mcg dsdv specified Cancer Center sodium 2021- No Chronic 4mL Inhale the U nivers chloride 7 6- 07-08 obstructive contents ity of % 00:00: 00:00 pulmonary of 1 vial [place] (Hyper-Marcela) 00 :00 disease, (4 mL by) nebulizer not nebulizati [place] rso solution otherwise on twice n specified daily. Cancer Center losartan 2021- No Essential 100mg Give 1 Univers (COZAAR) 5-27 -27 hypertensio tablet i ty of 100 mg 00:00: 04:59 n (100 mg) [place] tablet 00 :00 by feeding MD tube route Anderso daily for n 30 days. Cancer Center budesonide- 2021- No 2{puff} Inhale 2 Univers formoterol 10-27 05-26 puffs by ity of (SYMBICORT) 18:21: 00:00 mouth [place] 160-4.5 10 :00 twice MD mcg/actuati daily. Chucky o on inhaler Patient n usually Cancer does it Center once a day at night. nebulizer 2021- Yes Mucopurulen 1U 1 Units by [employer] 10-27 t chronic miscellane ity of (Reusable 00:00: 04:59 bronchitis ous route [place] Nebulizer 00 :00 as needed MD Kit) kit (per Anderso nebulizer n schedule.) Cancer for up to Center 90 days. arformotero 2021- Yes Chronic 15ug Inhale 1 Univers l (BROVANA) 10-27 bronchitis, vial (15 ity of 15 mcg/2 mL 00:00: 04:59 not mcg) by [place] nebulizer 00 :00 otherwise nebulizati MD solution specified on twice An derso daily for n 90 days. Cancer Center budesonide 2021- Yes Chronic .5mg Inhale 1 Univers (PULMICORT) 10-27 bronchitis, vial (0.5 ity of 0.5 mg/2 mL 00:00: 04:59 not mg) by Al as nebulizer 00 :00 otherwise nebulizati MD solution specified on every An derso 12 n (twelve) Cancer hours for Center 90 days. ipratropium 2021- Yes Chronic 3mL Inhale 1 Univers -albuterol 10-27 bronchitis, vial (3 ity of (DUO-NEB) 00:00: 04:59 not mL) by Donn 0.5 mg-2.5 00 :00 otherwise nebulizati MD mg/3 mL specified on every 4 A nderso nebulizer (four) n solution hours for Cancer 90 days. Center sodium 2021- No Chronic 4mL Inhale 4 Uni vers chloride 3 10-27 bronchitis, mL by ity of % nebulizer 00:00: 00:00 not nebulizati [place] solution 00 :00 otherwise on twice MD specified daily for Jorge so 90 days. n Cancer Center levoFLOXaci 2021- No Chronic 750mg Give 30 mL Univers n 10-27 bronchitis, (750 mg) ity of (LEVAQUIN) 00:00: 04:59 not per G-tube [place] 250 mg/10 00 :00 otherwise daily for MD mL solution specified 5 doses. [facility] arformotero 2021- No Chronic 15ug Inhale 1 Univers l (BROVANA) 10-27 bronchitis, vial (15 ity of 15 mcg/2 mL 00:00: 00:00 [place]cg[place] nebulizer 00 :00 otherwise nebulizati MD solution specified on twice An derso daily for n 90 days. Cancer Center budesonide 2021- No Chronic .5mg Inhale 1 Univers (PULMICORT) 10-27 bronchitis, vial (0.5 ity of 0.5 mg/2 mL 00:00: 00:00 not mg) by Al as nebulizer 00 :00 otherwise nebulizati MD solution specified on every An derso 12 n (twelve) Cancer hours for Center 90 days. ipratropium 2021- No Chronic 3mL Inhale 1 Univers -albuterol 10-27 bronchitis, vial (3 ity of (DUO-NEB) 00:00: 00:00 not mL) by Donn 0.5 mg-2.5 00 :00 otherwise nebulizati MD mg/3 mL specified on every 4 A nderso nebulizer (four) n solution hours for Cancer 90 days. Center sodium 2021- No Chronic 4mL Inhale 4 Uni vers chloride 3 10-27 bronchitis, mL by ity of % nebulizer 00:00: 00:00 not nebulizati [place] solution 00 :00 otherwise on twice MD specified daily for Jorge so 90 days. n [facility] Center ferrous Yes Melena 325mg 1 tablet Uni vers sulfate 5- (325 mg) ity of (iron) 325 00:00: by feeding [place] mg (65 mg 00 tube route elemental daily. Andade[place] iron per n tablet) Cancer [facility] folic acid Yes Hypomagnese 1mg 1 tablet Univers (FOLVITE) 1 5-22 kaylen (1 mg) by ity of mg tablet 00:00: feeding [place] 00 tube route MD daily. [facility] magnesium Yes Hypomagnese 500mg 1 tablet Univers oxide 500 5-22 kaylen (500 mg) ity of mg tablet 00:00: by feeding [place] 00 tube route [place] daily. [facility] thiamine Yes Hypomagnese 100mg 1 tablet Univers (VITAMIN 5-22 kaylen (100 mg) ity of B-1) 100 mg 00:00: by feeding [place] tab tablet 00 tube route daily. [facility] rosuvastati Yes Chronic 40mg 1 tablet Univers n (CRESTOR) 5-22 diastolic (40 mg) by ity of 40 mg 00:00: heart feeding [place] tablet 00 failure tube route [facility] metoprolol- 2021- No 1 tablet U nivers hydrochloro 10-15 with food it y of thiazide 01:40: 00:00 [place] (LOPRESSOR 05 :00 HCT) 50-25 Anderso mg per n tablet Cancer [place] losartan 2021- No 1 tablet Univ ers (Cozaar) 10-15 ity of 100 mg 01:39: 00:00 [place] tablet 56 :00 MD Murry [facility] Nicoderm CQ Yes Nicotine Apply 1-2 Univers 21 mg/24 hr 5-11 dependence patches to ity of transdermal 00:00: skin and [place] patch 00 change patch Andade[place] daily as n directed Cancer for Center tobacco cessation (alternate sites). predniSONE 2021- No TAKE ONE Un danae (DELTASONE) 10-05 (1) ity of 10 mg 00:00: 00:00 TABLET(S) [place] tablet 00 :00 BY MOUTH TWICE A Anderso DAY. [facility] levoFLOXaci 2021- No TAKE ONE U nivers n 10-05 (1) ity of (LEVAQUIN) 00:00: 00:00 TABLET(S) [place] 750 mg 00 :00 BY MOUTH tablet ONCE A Anders DAY. n Cancer Center methylPREDN No USE Uni vers ISolone 09-30 DIRECTED. ity of (MEDROL 00:00: 00:00 [place] DOSEPACK) 4 00 :00 MD mg tablet [facility] lansoprazol Yes PLACE ONE U nivers e (PREVACID 4- (1) TABLET it y of SOLUTAB) 30 00:00: IN [place] MG 00 SYRINGE, disintegrat DRAW UP 10 An derso ing tablet ML(S) n AMOUNT OF Cancer WATER, Center GENTLY SHAKE, ADMINISTER VIA TUBE WITHIN 15 MINS, REFILL SYRINGE WITH 5 nutritional 2021- No Aspiration 375mL Give Univers supplement 08-31 pneumonia 375-500 mL ity of (nutren 00:00: 00:00 per [place] 1.5) 00 :00 NG-tube 3 MD enteral (three) Anderso tube times a n feeding day with Cancer meals. [place] pantoprazol 2021- No Aspiration 40mg Take 1 Univers e 08-31 pneumonia tablet (40 ity of (PROTONIX) 00:00: 00:00 mg) by Felipe s 40 mg EC 00 :00 mouth MD tablet every Anderso morning n before Cancer breakfast. [place] tadalafil 2021- No 20mg Take 20 mg U nivers (CIALIS) 20 08-29- by mouth. it y of mg tablet 13:49: 00:00 [place] 25 :00 MD [facility] gabapentin 2021- No Neuropathic TAKE ONE Univers (NEURONTIN) 08-22 pain (1) ity of 300 mg 00:00: 00:00 CAPSULE(S) [place] capsule 00 :00 BY MOUTH THREE Anderso TIMES A n DAY. Cancer Center HYDROcodone 2021- No Oral 1{tbl} Take 1-2 Univers -acetaminop 3-13 06-09 mucositis tablets by ity of hen ([place]) 00:00: 00:00 due to mouth [place] 5 mg-325 mg 00 :00 radiation every 8 MD per tablet (eight) Chucky o hours as n needed for Cancer severe Center pain. Nicoderm CQ 2021- Nicotine Apply 1-2 Univers 21 mg/24 hr 08-04 dependence patches to ity of transdermal 00:00: 00:00 skin and [place] patch 00 :00 change MD patch Anderso daily as n directed Cancer for Center tobacco cessation (alternate sites). traMADol 2021- No Oral TAKE ONE Univ ers (ULTRAM) 50 07-25 mucositis (1) TABLET ity of mg tablet 00:00: 00:00 due to (50 MG) BY [place] 00 :00 radiation MOUTH MD EVERY 4 Anderso (FOUR) n HOURS Cancer NEEDED FOR Center MODERATE PAIN OR SEVERE PAIN. amLODIPine Yes Essential 10mg Give 1 Univers (NORVASC) 07-13 hypertensio tablet (10 ity of 10 mg 00:00: n mg) per [place] tablet 00 NG-tube MD daily. [facility] folic acid 2021- No Folate 1mg Take 1 Un danae (FOLVITE) 1 07-13 deficiency tablet (1 ity of mg tablet 00:00: 00:00 mg) by [place] 00 :00 mouth MD daily. [facility] thiamine 2021- No Hypophospha 100mg Take 1 Univers (VITAMIN 07-13 temia tablet ity of B-1) 100 mg 00:00: 00:00 (100 mg) [place] tab tablet 00 :00 by mouth MD daily. [facility] amoxicillin 2021- No Aspiration 875mg Take 1 Univers -clavulanat 07-13 pneumonia tablet ity of e 00:00: 00:00 (875 mg) [place] (Augmentin) 00 :00 by mouth MD 875 mg-125 daily for [place] rso mg per 2 doses. n tablet [facility] potassium-s 2021- No Hypophospha 1{packe Give 1 Univers odium 07-12 temia t} packet per ity of phosphates 00:00: 00:00 NG-tube Al as (PHOS-NAK) 00 :00 twice MD 280 mg-160 daily. Mix And erso mg-250 mg contents n powder of 1 Cancer packet of Center the powder in 2 and 1/2 ounces (75 mL) of water or juice. Stir until completely dissolved and drink the mixture right away after mixing. Do not save for later use. potassium 2021- No Hypokalemia 40meq Give 30 mL Univers chloride 07-12-11 (40 mEq) ity of (KAYCIEL) 00:00: 00:00 per [place] 20 mEq/15 00 :00 NG-tube MD mL solution daily. Chucky o n [facility] amoxicillin 2021- No Aspiration 875mg Take 1 Univers -clavulanat 07-12-12 pneumonia tablet ity of e 00:00: 05:59 (875 mg) [place] (Augmentin) 00 :00 by mouth MD 875 mg-125 twice Anderso mg per daily for n tablet 5 doses. Cancer Center cloNIDine 2021- No Hypertensio .1mg Take 1 Univers HCl 07-01 05-14 n tablet ity of (Catapres) 00:00: 00:00 (0.1 mg) [place] 0.1 mg 00 :00 by mouth 3 MD tablet (three) Anderso times a n day as Cancer needed for Center high blood pressure (Systolic blood pressure over 180, diastolic over 110). polyethylen No Constipatio 17g Take 17 g Univers e glycol 06-29 05-11 n, not by mouth 3 it y of (GLYCOLAX) 00:00: 00:00 otherwise (three) [place] 17 00 :00 specified times a MD gram/dose day. Anderso powder n [facility] senna-docus 2021- No Constipatio 1{tbl} Take 1-3 Univers ate 06-29 03-30 n, not tablets by ity of (SENOKOT-S) 00:00: 00:00 otherwise mouth [place] 8.6 mg-50 00 :00 specified twice MD mg tablet daily. Anderso n [facility] glycopyrrol 2021- No Thick 1mg Take 1 Un danae ate 06-29 02-08 sputum tablet (1 ity of (RobinuL) 1 00:00: 00:00 mg) by Al as mg tablet 00 :00 mouth 4 MD (four) Anderso times a n day. Cancer Center rosuvastati 2021- No daily. Uni vers n (CRESTOR) 06-25 ity of 40 mg 00:00: 00:00 [place] tablet 00 :00 MD [facility] losartan 2021- No daily. Univer s (COZAAR) 06-24 ity of 100 mg 00:00: 00:00 [place] tablet 00 :00 MD [facility] cloNIDine 2021- No Hypertensio .1mg Take 1 Univers HCl 06-22 n tablet ity of (Catapres) 00:00: 00:00 (0.1 mg) [place] 0.1 mg 00 :00 by mouth 3 MD tablet (three) Anderso times a n day as Cancer needed for Center high blood pressure (Systolic blood pressure over 180, diastolic over 110). lidocaine Oral 5mL Swish and Un danae (XYLOCAINE) 06-15 mucositis swallow 5 ity of 20 mg/mL 00:00: 00:00 due to mL every 4 [place] (2%) 00 :00 radiation (four) MD viscous hours as Anderso solution needed n (throat Cancer pain). [place] magnesium Hypomagnese 500mg Take 1 Univers oxide 500 06-15 kaylen tablet ity of mg tablet 00:00: 00:00 (500 mg) Al as 00 :00 by mouth MD daily. [facility] traMADol No Oral 50mg Take 1 Univer s (ULTRAM) 50 06-15 mucositis tablet (50 ity of mg tablet 00:00: 00:00 due to mg) by Al as 00 :00 radiation mouth MD every 4 Anderso (four) n hours as Cancer needed for Center moderate pain or severe pain. guaiFENesin No Thick 200mg Take 10 mL Univers (ROBITUSSIN 06-13 sputum (200 mg) i ty of ) 100 mg/5 00:00: 00:00 by mouth 4 [place] mL syrup 00 :00 (four) MD times a [facility] day. n [facility] CQ 2021- No Nicotine Apply 2 Univers 21 mg/24 hr 06-08 dependence patch to ity of transdermal 00:00: 00:00 skin and [place] patch 00 :00 change MD patch Anderso daily as n directed Cancer for Center tobacco cessation (alternate sites). triamcinolo 2020-06- No Radiation 1{appli Apply 1 Univers ne 07-26 dermatitis cation} applicatio ity of (KENALOG) 00:00: 00:00 n [place] ointment 00 :00 topically MD 0.1% to Anderso affected n area(s) Cancer twice Center daily. gabapentin 2020-06- No Neuropathic 300mg Take 1 Univers (Neurontin) 07-26 pain capsule ity of 300 mg 00:00: 00:00 (300 mg) [place] capsule 00 :00 by mouth 3 MD (three) Anderso times a n day. 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 prochlorper 2020-06- No Primary 10mg Take 1 Univers azine 07-18 0209 squamous tablet (10 ity of (Compazine) 00:00: 00:00 cell mg) by Al as 10 mg 00 :00 carcinoma mouth MD tablet of larynx every 6 [place] so (six) n hours as Cancer needed for Center nausea or vomiting (if not controlled by Ondansetro n). Nicoderm CQ 2020-06- No Nicotine Apply 1 Univers 21 mg/24 hr 07-10 dependence patch to ity of transdermal 00:00: 00:00 skin and [place] patch 00 :00 change MD patch Anderso daily as n directed Cancer for Center tobacco cessation (alternate sites). fluoride, 2020-06 Yes Accretion Apply to Univers sodium, 07-07 on teeth teeth ity of (PREVIDENT) 00:00: twice [place] 1.1 % 00 daily. dental [place] cream teeth with n cream and Cancer spit out Center as directed. (Do not eat, drink or rinse for 30 minutes). metFORMIN 2020-06 Yes 500mg Take 500 Uni vers (GLUCOPHAGE 1-16 mg by ity of ) 500 mg 00:00: mouth as [place] tablet 00 needed. MD Jeanmarie patel [facility] metoprolol 2020-06- No TAKE ONE Un danae tartrate 16 02-08 (1) ity of (LOPRESSOR) 00:00: 00:00 TABLET(S) [place] 50 mg 00 :00 BY MOUTH tablet TWICE A Anderso DAY WITH n FOOD. Cancer Center losartan 2020-06- No 100mg Take 100 Uni vers (COZAAR) 50 06-16-26 mg by ity of mg tablet 00:00: 00:00 mouth [place] 00 :00 daily. MD Jeanmarie patel [facility] Dexilant 60 2020-06- No TAKE ONE U nivers mg capsule 06-13 (1) ity of 00:00: 00:00 CAPSULE(S) [place] 00 :00 BY MOUTH DAILY. Jeanmarie [facility] montelukast 2020-06- No TAKE ONE U nivers (SINGULAIR) 06-07 03-30 (1) ity of 10 mg 00:00: 00:00 TABLET(S) [place] tablet 00 :00 BY MOUTH ONCE A And DAY. [facility] diazePAM 2020-06- No 5mg Take 5 mg Uni vers (VALIUM) 5 -08 by mouth ity of mg tablet 00:00: 00:00 as needed. [place] 00 :00 MD Jeanmarie patel [facility] cetirizine 2020-06- No TAKE ONE Un danae (ZyrTEC) 10 - (1) ity of mg tablet 00:00: 00:00 TABLET(S) [place] 00 :00 BY MOUTH ONCE A Anderso DAY. [facility] clopidogrel 2020-06- No TAKE ONE U nivers (PLAVIX) 75 0-05 08- (1) ity of mg tablet 00:00: 00:00 TABLET(S) [place] 00 :00 BY MOUTH ONCE A Anderso DAY. n Cancer Center simvastatin 2020-06- No TAKE ONE U nivers (ZOCOR) 10 006-29 (1) ity of mg tablet 00:00: 00:00 TABLET(S) [place] 00 :00 BY MOUTH EVERY Anderso EVENING. n Cancer Center fenofibrate 0 2021- No TAKE ONE U nivers nanocrystal 02-08 (1) ity of lized 00:00: 00:00 TABLET(S) [place] (TRICOR) 00 :00 BY MOUTH 145 mg ONCE A Anderso tablet DAY. n Cancer Center Metformin Metformin Yes Na Bullard 1 tablet Common HCl HCl 7-02 with a Spirit 00:00: meal - [facility] 00 [facility] Montelukast Montelukast Yes Na Bullard 1 tablet Common Sodium Sodium 4-21 Spirit 00:00: - [facility]I [facility] ferrous 2021- No Univers sulfate 3-15 10-23 ity of (iron) 325 00:00: 00:00 Donn mg (65 mg 00 :00 elemental Jeanmarie iron per n tablet) Cancer tablet Center aspirin 81 2009-06- No 81mg Take 81 mg Univers mg EC 06-25 by mouth. ity of tablet 00:00: 00:00 Donn 00 :00 MD [facility] Cialis Glorialis Yes Na Bullard 1 tablet Comm on [facility] Metoprolol Metoprolol Yes Na Bullard 1 tablet Common Tartrate Tartrate with food Sp franco [facility] Dexilant Dexilant Yes Na Bullard TAKE ONE Common (1) Spirit CAPSULE(S) - [facility] BY MOUTH St ONCE A DAY. Medical Center Plavix Plavix Yes Na Bullard 1 tablet Comm on [facility] Plavix Plavix Yes Na Bullard 1 tablet Comm on [facility] Ventolin Ventolin Yes Na Bullard 2 puffs as Common HFA HFA needed [facility] Nicotine Nicotine Yes Na Bullard 1 patch to Common Step 1 Step 1 skin [facility] Cetirizine Cetirizine Yes Na Bullard 1 tablet Common HCl HCl [facility] Cetirizine Cetirizine Yes Na Bullard TAKE ONE Common HCl HCl (1) Spirit TABLET(S) - CH[facility] BY MOUTH St ONCE A DAY. Medical Center Simvastatin Simvastatin Yes Na Bullard 1 tablet Common in the [facility] evening [facility] Nystatin Nystatin Yes Na Bullard 4 ml Comm on [facility] Fenofibrate Fenofibrate Yes Na Bullard 1 tablet Common with food [facility] Symbicort Symbicort Yes Na Bullard 2 puffs Common [facility] Flonase Flonase Yes Na Bullard 2 spray in Common each [facility] nostril [facility] Immunizations Ordered Filled Immunization Date Status Comments Sour e Immunization Name Name Moderna SARS-CoV-2 2021-04-16 Completed Univer sity of Booster Vaccination 00:00:00 Donn Dorantes (50 mcg/0.25 mL) Cancer C enter [facility] SARS-CoV-2 2020-08-07 Completed Univer sity of Vaccination 00:00:00 [facility] 2020-07-10 Completed Univer sity of Vaccination 00:00:00 Donn [facility] Vital Signs Vital Name Observation Time Observation Value Comments Source Systolic blood 2022-01-12 17:10:14 159 mm[Hg] Univer sity of pressure [facility] Diastolic blood 2022-01-12 17:10:14 63 mm[Hg] Unive rsity of pressure [facility] Heart rate 2022-01-12 17:10:14 63 /min [facility] [place] [facility] Body temperature 2022-01-12 17:10:14 36.89 Yocasta [facility] Respiratory rate 2022-01-12 17:10:14 16 /min [facility] Body height 2022-01-12 17:10:14 167 cm Universi ty [facility]n [facility] Body weight 2022-01-12 17:10:14 59.6 kg Universi ty [facility] BMI 2022-01-12 17:10:14 21.37 kg/m2 Universi ty of [place] MD [facility] Oxygen saturation in 2022-01-12 17:10:14 98 /min University of Arterial blood by Donn alrson Pulse oximetry Cancer Center Procedures Procedure Date / Time Performing Clinician Source Performed COMPLETE BLOOD COUNT W/ 2022-01-12 Kosta Ahuja [facility] DIFFERENTIAL 15:00:00 [facility] COMPREHENSIVE METABOLIC 2022-01-12 Seymour [facility] PANEL 15:00:00 [facility] C REACTIVE PROTEIN 2022-01-12 Seymour [facility] 15:00:00 [facility] SEDIMENTATION RATE 2022-01-12 Seymour [facility] NON-AUTOMATED 15:00:00 [facility] Results CBC 2022-01-12 Seymour [facility] [place] 15:00:00 [facility] MANUAL DIFFERENTIAL 2022-01-12 Seymour [facility] [place] [facility] 15:00:00 [facility] GLUCOSE LEVEL 2022-01-12 [facility] [place] 15:00:00 [facility] BLOOD UREA NITROGEN 2022-01-12 Seymour [facility] 15:00:00 [facility] ELECTROLYTE PANEL 2022-01-12 Seymour [facility] 15:00:00 [facility] SERUM CREATININE 2022-01-12 Seymour [facility] [place] 15:00:00 [facility] .GLOMERULAR FILTRATION 2022-01-12 Kosta Ahuja [facility] RATE 15:00:00 [facility] CALCIUM LEVEL TOTAL 2022-01-12 Guero [facility] f [place] 15:00:00 [facility] ALBUMIN LEVEL 2022-01-12 [facility] [place] 15:00:00 [facility] ALKALINE PHOSPHATASE 2022-01-12 [facility] ALANINE AMINOTRANSFERASE 2022-01-12 Kosta Ahuja [facility] 15:00:00 [facility] ASPARTATE AMINOTRANSFERASE 2022-01-12 [facility] 15:00:00 [facility] TOTAL PROTEIN 2022-01-12 Seymour [facility] [place] 15:00:00 [facility] FRACTIONATED BILIRUBIN 2022-01-12 [facility] 15:00:00 [facility] FL MODIFIED BARIUM SWALLOW 2021-12-30 Bryant Hyatt [facility] W SPEECH 15:26:41 [facility] VERIFY CATHETER TIP 2021-12-28 Romeo Brandt [place] [facility] [place] PLACEMENT 23:30:00 [facility] XR CHEST 2 VW POST IMPLANT 2021-12-28 Kosta Ahuja [facility] 23:01:47 [facility] INSERT VASCULAR ACCESS 2021-12-28 [facility] DEVICE 22:25:00 [facility] VASCULAR ACCESS ULTRASOUND 2021-12-28 [facility] 20:17:34 [facility] LOWER RESPIRATORY CULTURE 2021-12-16 Ene Polk [facility] W/ GRAM STAIN 14:21:00 [facility] [address] SOFT TISSUE NECK W 2021-12-16 Ene Polk [facility] CONTRAST 12:03:03 [facility] XR CHEST 2 VW 2021-12-09 Shirley Mcghee [place] [facility] [place] 14:09:33 [facility] POC GLUCOSE SCREEN 2021-11-18 Hilario Pardo [facility] 03:16:00 [facility] URINALYSIS WITH 2021-11-18 Kodi Nicole [facility] [place] MICROSCOPIC IF INDICATED 02:40:00 MD [facility] URINE CULTURE 2021-11-18 Kodi Nicole [facility] [place] 02:40:00 [facility] ARTERIAL BLOOD GAS 2021-11-18 Hilario Pardo [facility] 02:33:00 [facility] CT SOFT TISSUE NECK W 2021-11-18 Bonnie [facility] CONTRAST 00:30:[address] [facility] [address] CHEST PULMONARY 2021-11-18 [facility] [place] EMBOLISM W CONTRAST 00:30:00 [facility] POC VENOUS BLOOD GAS + 2021-11-17 Hilario Pardo Duran [facility] LACTATE 19:40:00 [facility] COMPLETE BLOOD COUNT W/ 2021-11-17 Bonnie [facility] DIFFERENTIAL 19:37:00 [facility] COMPREHENSIVE METABOLIC 2021-11-17 [facility] [place] [facility] PANEL 19:37:00 [facility] MAGNESIUM LEVEL 2021-11-17 [facility] x[place] 19:37:00 [facility] PHOSPHORUS LEVEL 2021-11-17 [facility] [place] 19:37:00 [facility] PROCALCITONIN 2021-11-17 [facility] [place] 19:37:00 [facility] CARDIAC PANEL 2021-11-17 [facility] [place] 19:37:00 [facility] NT PRO BNP 2021-11-17 [facility] [place] 19:37:00 [facility] PROTHROMBIN TIME 2021-11-17 [facility] [place] 19:37:00 [facility] APTT 2021-11-17 [facility] [place] 19:37:00 [facility] Results CBC 2021-11-17 [facility] [place] 19:37:00 [facility] MANUAL DIFFERENTIAL 2021-11-17 [facility] [place] 19:37:00 [facility] GLUCOSE LEVEL 2021-11-17 [facility] Te [place] 19:37:00 [facility] BLOOD UREA NITROGEN 2021-11-17 [facility] [place] 19:37:00 [facility] ELECTROLYTE PANEL 2021-11-17 [facility] [place] 19:37:00 [facility] SERUM CREATININE 2021-11-17 [facility] [place] 19:37:00 [facility] .GLOMERULAR FILTRATION 2021-11-17 [facility] RATE 19:37:00 [facility] CALCIUM LEVEL TOTAL 2021-11-17 [facility] [place] 19:37:00 [facility] ALBUMIN LEVEL 2021-11-17 [facility] Te [place] 19:37:00 [facility] ALKALINE PHOSPHATASE 2021-11-17 [facility] [place] 19:37:00 [facility] ALANINE AMINOTRANSFERASE 2021-11-17 [facility] 19:37:00 [facility] ASPARTATE AMINOTRANSFERASE 2021-11-17 [facility] 19:37:00 [facility] TOTAL PROTEIN 2021-11-17 [facility] [place] 19:37:00 [facility] FRACTIONATED BILIRUBIN 2021-11-17 [facility] 19:37:00 [facility] BLOODCULTURE 2021-11-17 [facility] [place] 19:37:00 [facility] COVID-19 (SARS-COV-2) 2021-11-17 [facility] [place] ASYMPTOMATIC-LT 19:37:00 [facility] POC GLUCOSE SCREEN 2021-11-12 Ene Polk [facility] 12:18:00 [facility] BASIC METABOLIC PANEL, 2021-11-12 [place] Shailesh [facility] CALCIUM TOTAL 09:24:00 [facility] MAGNESIUM LEVEL 2021-11-12 [facility] exas 09:24:00 [facility] PHOSPHORUS LEVEL 2021-11-12 [facility] 09:24:00 [facility] COMPLETE BLOOD COUNT W/ 2021[facility]11[facility] 09:24:00 [facility] GLUCOSE LEVEL 2021-11-12 Ene Polk [facility] xa 09:24:00 [facility] BLOOD UREA NITROGEN 2021-11-12 Ene Polk [facility] 09:24:00 [facility] ELECTROLYTE PANEL 2021-11-12 Ene Polk [facility] 09:24:00 [facility] SERUM CREATININE 2021-11-12 Ene Polk [facility] ex 09:24:00 [facility] .GLOMERULAR FILTRATION 2021-11-12 Ene Polk [facility] RATE 09:24:00 [facility] CALCIUM LEVEL TOTAL 2021-11-12 Ene [facility] 09:24:00 [facility] Results CBC 2021-11-12 Ene Polk [facility] xa 09:24:00 [facility] MANUAL DIFFERENTIAL 2021-11-12 [facility] 09:24:00 [facility] Center POC GLUCOSE SCREEN 2021-11-12 Ene [place] 04:06:00 [facility] Center POC GLUCOSE SCREEN 2021-11-12 Ene [facility] 00:33:00 [facility] Center POC GLUCOSE SCREEN 2021-11-11 Ene [place] 20:31:00 [facility] Center POC GLUCOSE SCREEN 2021-11-11 Ene [facility] 17:29:00 [facility] Center POC GLUCOSE SCREEN 2021-11-11 Ene [facility] 12:57:00 [facility] BASIC METABOLIC PANEL, 2021-11-11 Shailesh Guthrie [facility] CALCIUM TOTAL 08:47:00 [facility] MAGNESIUM LEVEL 2021-11-11 [place] [facility] exas 08:47:00 [facility] PHOSPHORUS LEVEL 2021-11-11 [place], [facility] 08:47:00 [facility] COMPLETE BLOOD COUNT W/ 2021-11-11 [place] [facility] DIFFERENTIAL 08:47:00 [facility] Center GLUCOSE LEVEL 2021-11-11 Ene [facility] xa 08:47:00 [facility] BLOOD UREA NITROGEN 2021-11-11 Ene [facility] 08:47:00 [facility] ELECTROLYTE PANEL 2021-11-11 Ene Pol[facility] 08:47:00 [facility] SERUM CREATININE 2021-11-11 Ene Polk [facility] exas 08:47:00 [facility] .GLOMERULAR FILTRATION 2021-11-11 Ene Polk [facility] RATE 08:47:00 [facility] CALCIUM LEVEL TOTAL 2021-11-11 Ene [place] [facility] [place] 08:47:00 [facility] Results CBC 2021-11-11 Ene [place] [facility] xas 08:47:00 [facility] MANUAL DIFFERENTIAL 2021-11-11 Ene [place] [facility] [place] 08:47:00 [facility] POC GLUCOSE SCREEN 2021-11-10 Ene [place] [facility] 22:31:00 [facility] SODIUM LEVEL 2021-11-10 Aaron Nolasco [facility] 19:27:00 [facility] POC GLUCOSE SCREEN 2021-11-10 Ene [place] [facility] 17:38:00 [facility] GENERAL LABORATORY ADD ON 2021-11-10 Shirley Mcghee [facility] TEST 14:06:00 [facility] POC GLUCOSE SCREEN 2021-11-10 Ene [place] 14:05:00 [facility] NT PRO BNP 2021-11-10 Tamiko Stewart [facility] xa 14:03:00 [facility] BASIC METABOLIC PANEL, 2021-11-10 Shailesh Guthrie [facility] CALCIUM TOTAL 08:47:00 [facility] Center MAGNESIUM LEVEL 2021-11-10 [place] [facility] 08:47:00 [facility] PHOSPHORUS LEVEL 2021-11-10 [facility] 08:47:00 [facility] COMPLETE BLOOD COUNT W/ 2021-11-10 Shailesh Guthrie [facility] DIFFERENTIAL 08:47:00 [facility] Center GLUCOSE LEVEL 2021-11-10 Ene Pol[place] [facility] xas 08:47:00 [facility] BLOOD UREA NITROGEN 2021-11-10 Ene Polk [place] [facility] [place] 08:47:00 [facility] ELECTROLYTE PANEL 2021-11-10 Ene Polk [facility] 08:47:00 [facility] SERUM CREATININE 2021-11-10 Ene Polk [facility] ex 08:47:00 [facility] .GLOMERULAR FILTRATION 2021-11-10 Ene Polk [facility] RATE 08:47:00 [facility] CALCIUM LEVEL TOTAL 2021-11-10 [facility] 08:47:00 [facility] Results CBC 2021-11-10 Ene [place] xa 08:47:00 [facility] MANUAL DIFFERENTIAL 2021-11-10 Ene [facility] 08:47:00 [facility] POC GLUCOSE SCREEN 2021-11-09 Ene [place] 22:24:00 [facility] POC GLUCOSE SCREEN 2021-11-09 Ene [place] 13:07:00 [facility] BASIC METABOLIC PANEL, 2021-11-09 [place], [facility] CALCIUM TOTAL 09:01:00 [facility] MAGNESIUM LEVEL 2021-11-09 [facility] ex 09:01:00 [facility] PHOSPHORUS LEVEL 2021-11-09 [facility] 09:01:00 [facility] COMPLETE BLOOD COUNT W/ [facility]00 [facility] GLUCOSE LEVEL 2021-11-09 Ene Pol[facility] xa 09:01:00 [facility] BLOOD UREA NITROGEN 2021-11-09 [facility] [place] 09:01:00 [facility] ELECTROLYTE PANEL 2021-11-09 Ene Polk [facility] 09:01:00 [facility] SERUM CREATININE 2021-11-09 Ene Polk [facility] ex 09:01:00 [facility] .GLOMERULAR FILTRATION 2021-11-09 Ene Polk [facility] RATE 09:01:00 MD [facility] CALCIUM LEVEL TOTAL 2021-11-09 Ene [place] [facility] [place] 09:01:00 [facility] Results CBC 2021-11-09 Ene Polk [facility] xas 09:01:00 [facility] Center MANUAL DIFFERENTIAL 2021-11-09 Ene [place] [facility] [place] 09:01:00 [facility] XR CHEST 1 VW 2021-11-08 Shailesh Guthrie [facility] 22:54:06 [facility] POC GLUCOSE SCREEN 2021-11-08 Ene Pol[facility] 22:53:00 [facility] PATHOLOGY SURGICAL 2021-11-08 Ene Polk [facility] INTERPRETATION 21:12:00 [facility] TRACHEOSTOMY - PLANNED 2021-11-08 Ene Polk [facility] 19:47:00 [facility] DIAGNOSTIC FLEXIBLE OR 2021-11-08 Ene Polk [facility] RIGID ESOPHAGOSCOPY 19:47:00 [facility] DIRECT OPERATIVE 2021-11-08 Ene Polk [facility] LARYNGOSCOPY WITH BIOPSY 19:47:00 MD [facility] POC GLUCOSE SCREEN 2021-11-08 Ene Polk [facility] 19:34:00 [facility] COVID-19 (SARS-COV-2) 2021-11-08 Ene Polk [facility] ASYMPTOMATIC-LT 18:47:00 [facility] FLEXIBLE NASOPHARYNGEAL 2021-11-07 Rebecca Brown [facility] LARYNGOSCOPY 23:14:25 [facility] Center SPIROMETRY W/O DILATORS, 2021-11-07 Cintia Adame [facility] DLCO AND BODY 20:14:27 [facility] PLETHSMOGRAPHIC LUNG Center VOLUMES 6 MINUTE WALK TEST 2021-11-07 Shirley Mcghee [facility] 20:14:12 [facility] Center POC GLUCOSE SCREEN 2021-10-27 Amber Park [facility] 17:39:00 [facility] BASIC METABOLIC PANEL, 2021-10-27 [place] [facility] CALCIUM IONIZED 10:10:00 [facility] Center MAGNESIUM LEVEL 2021-10-27 [facility] 10:10:00 [facility] PHOSPHORUS LEVEL 2021-10-27 [facility] 10:10:00 [facility] COMPLETE BLOOD COUNT W/ 2021-10-27 [facility] DIFFERENTIAL 10:10:00 [facility] GLUCOSE LEVEL 2021-10-27 [facility] 10:10:00 [facility] BLOOD UREA NITROGEN 2021-10-27 [facility] [place] 10:10:00 [facility] ELECTROLYTE PANEL 2021-10-27 [facility] 10:10:00 [facility] SERUM CREATININE 2021-10-27 [facility] [place] 10:10:00 [facility] .GLOMERULAR FILTRATION 2021-10-27 [facility] RATE 10:10:00 [facility] CALCIUM IONIZED, VENOUS 2021-10-27 [facility] 10:10:00 [facility] Results CBC 2021-10-27 [facility] 10:10:00 [facility] MANUAL DIFFERENTIAL 2021-10-27 [facility] [place] [facility] 10:10:00 [facility] ABORH MANUAL 2021-10-27 [facility] 10:10:00 [facility] CLOT EXPIRATION DATE 2021-10-27 [facility] 10:10:00 [facility] POC GLUCOSE SCREEN 2021-10-27 [facility] 05:04:00 [facility] POC GLUCOSE SCREEN 2021-10-26 [facility] 22:36:00 [facility] ARTERIAL BLOOD GAS 2021-10-26 [facility] 22:19:00 [facility] OSCILLATORY PEP 2021-10-26 [facility] 19:00:53 [facility] POC GLUCOSE SCREEN 2021-10-26 [facility] 16:42:00 [facility] OSCILLATORY PEP 2021-10-26 [facility] 13:00:10 [facility] BASIC METABOLIC PANEL, 2021-10-26 [facility] CALCIUM IONIZED 10:20:00 [facility] MAGNESIUM LEVEL 2021-10-26 [facility] 10:20:00 [facility] PHOSPHORUS LEVEL 2021-10-26 [facility] 10:20:00 [facility] COMPLETE BLOOD COUNT W/ 2021-10-26 [facility] DIFFERENTIAL 10:20:00 [facility] GLUCOSE LEVEL 2021-10-26 [facility] 10:20:00 [facility] BLOOD UREA NITROGEN 2021-10-26 [facility] [place] 10:20:00 [facility] ELECTROLYTE PANEL 2021-10-26 [facility] 10:20:00 [facility] SERUM CREATININE 2021-10-26 [facility] 10:20:00 [facility] .GLOMERULAR FILTRATION 2021-10-26 [facility] RATE 10:20:00 [facility] CALCIUM IONIZED, VENOUS 2021-10-26 [facility] 10:20:00 [facility] Results CBC 2021-10-26 [facility] 10:20:00 [facility] MANUAL DIFFERENTIAL 2021-10-26 [facility] [place] 10:20:00 [facility] POC GLUCOSE SCREEN 2021-10-26 [facility] 05:14:00 [facility] OSCILLATORY PEP 2021-10-26 [facility] 01:00:07 [facility] POC GLUCOSE SCREEN 2021-10-25 [facility] 22:58:00 [facility] OSCILLATORY PEP 2021-10-25 [facility] 19:00[facility]56 [facility] POC GLUCOSE SCREEN 2021-10-25 [facility] 16:44:00 [facility] OSCILLATORY PEP 2021-10-25 [facility] 13:00:13 [facility] POC GLUCOSE SCREEN 2021-10-25 [facility] 11:48:00 [facility] Center TYPE AND SCREEN 2021-10-25 [facility] 10:02:00 [facility] ANTIBODY SCREEN 2021-10-25 [facility] 10:02:00 [facility] BASIC METABOLIC PANEL, 2021-10-25 [facility] CALCIUM IONIZED 10:02:00 [facility] MAGNESIUM LEVEL 2021-10-25 [facility] 10:02:00 [facility] PHOSPHORUS LEVEL 2021-10-25 [facility]:02[facility]00 [facility] COMPLETE BLOOD COUNT W/ [facility] 10:02:00 [facility] GLUCOSE LEVEL 2021-10-25 [facility] 10:02[facility]00 [facility] BLOOD UREA NITROGEN 2021-10-25 [facility] [place] 10:02:00 [facility] ELECTROLYTE PANEL 2021-10-25 [facility] 10:02:00 [facility] SERUM CREATININE 2021-10-25 [facility]ameGuthrie [facility] 10:02:00 [facility] .GLOMERULAR FILTRATION 2021-10-25 [facility] RATE 10:02:00 [facility] CALCIUM IONIZED, VENOUS 2021-10-25 [facility] 10:02:00 [facility] Results CBC 2021-10-25 [facility] 10:02:00 [facility] MANUAL DIFFERENTIAL 2021-10-25 [facility] [place] 10:02:00 MD [facility] [place] [facility] TMP INTERPRETATION 2021-10-25 [facility] ANTIBODY SCREEN NEGATIVE 10:02:00 MD [facility] ABORH MANUAL 2021-10-25 [facility] 10:02:00 MD [facility] [place] [facility] CLOT EXPIRATION DATE 2021-10-25 [facility] 10:02:00 MD [facility] OSCILLATORY PEP 2021-10-25 [facility] 07:00:11 MD [facility] [place] [facility] POC GLUCOSE SCREEN 2021-10-25 [facility] 04:59:00 MD [facility] [place] [facility] OSCILLATORY PEP 2021-10-25 [facility] 01:00:14 MD [facility] [place] [facility] POC GLUCOSE SCREEN 2021-10-24 [facility] 23:01:00 MD [facility] [place] [facility] OSCILLATORY PEP 2021-10-24 [facility] 19:00:54 MD [facility] [place] [facility] POC GLUCOSE SCREEN 2021-10-24 [facility] 16:48:00 MD [facility] [place] [facility] OSCILLATORY PEP 2021-10-24 [facility] 13:00:09 MD [facility] [place] [facility] OSCILLATORY PEP 2021-10-24 [facility] 07:00:12 MD [facility] [place] [facility] POC GLUCOSE SCREEN 2021-10-24 [facility] 04:31:00 MD [facility] [place] [facility] OSCILLATORY PEP 2021-10-24 [facility] 01:00:13 MD [facility] [place] [facility] POC GLUCOSE SCREEN 2021-10-23 [facility] 23:09:00 MD [facility] [place] [facility] OSCILLATORY PEP 2021-10-23 [facility] 19:00:57 MD [facility] [place] [facility] POC GLUCOSE SCREEN 2021-10-23 [facility] 16:58:00 MD [facility] [place] [facility] OSCILLATORY PEP 2021-10-23 [facility] 13:00:08 [facility] HEMOGLOBIN A1C 2021-10-23 [facility] 10:13:00 [facility] BASIC METABOLIC PANEL, 2021-10-23 [facility] CALCIUM IONIZED 10:13:00 [facility] MAGNESIUM LEVEL 2021-10-23 [facility] 10:13:00 [facility] PHOSPHORUS LEVEL 2021-10-23 [facility] 10:13:00 [facility] COMPLETE BLOOD COUNT W/ 2021-10-23 [facility] DIFFERENTIAL 10:13:00 [facility] GLUCOSE LEVEL 2021-10-23 [facility] 10:13:00 [facility] BLOOD UREA NITROGEN 2021-10-23 [facility] [place] 10:13:00 [facility] ELECTROLYTE PANEL 2021-10-23 [facility] 10:13:00 [facility] SERUM CREATININE 2021-10-23 [facility] 10:13:00 [facility] .GLOMERULAR FILTRATION 2021-10-23 [facility] RATE 10:13:00 [facility] CALCIUM IONIZED, VENOUS 2021-10-23 [facility] 10:13:00 [facility] Results CBC 2021-10-23 [facility] 10:13:00 [facility] MANUAL DIFFERENTIAL 2021-10-23 [facility] [place] 10:13:00 [facility] POC GLUCOSE SCREEN 2021-10-23 [facility] 10:07:00 [facility] OSCILLATORY PEP 2021-10-23 [facility] 07:00:08 [facility] POC GLUCOSE SCREEN 2021-10-23 [facility] 04:49:00 [facility] OSCILLATORY PEP 2021-10-23 [facility] 01:00:08 [facility] Center MRSA SCREENING CULTURE 2021-10-22 [facility] 22:27:00 [facility] LOWER RESPIRATORY CULTURE 2021-10-22 [facility] CintiaCounts include 234 beds at the [facility] W/ GRAM STAIN 22:27:00 [facility] Center POC GLUCOSE SCREEN 2021-10-22 [facility] 22:19:00 [facility] Center COMPLETE BLOOD COUNT W/ 2021-10-22 [facility] DIFFERENTIAL 19:38:00 [facility] Center Results CBC 2021-10-22 [facility] 19:38:00 [facility] MANUAL DIFFERENTIAL 2021-10-22 [facility] 19:38:00 [facility] OSCILLATORY PEP 2021-10-22 [facility] 19:00:54 [facility] Center POC GLUCOSE SCREEN 2021-10-22 [facility] 18:11:00 [facility] XR CHEST 1 VW 2021-10-22 [facility] 15:05:41 [facility] OSCILLATORY PEP 2021-10-22 [facility] 13:00:07 [facility] POC GLUCOSE SCREEN 2021-10-22 [facility] 10:37:00 [facility] BASIC METABOLIC PANEL, 2021-10-22 [facility] CALCIUM IONIZED 08:56:00 [facility] MAGNESIUM LEVEL 2021-10-22 [facility] 08:56:00 [facility] PHOSPHORUS LEVEL 2021-10-22 [facility] 08:56:00 [facility] Center COMPLETE BLOOD COUNT W/ 2021-10-22 [facility] DIFFERENTIAL 08:56:00 [facility] Results CBC 2021-10-22 [facility] 08:56:00 [facility] MANUAL DIFFERENTIAL 2021-10-22 [facility] [place] 08:56:00 [facility] Center GLUCOSE LEVEL 2021-10-22 [facility] 08:56:00 [facility] BLOOD UREA NITROGEN 2021-10-22 [facility] [place] 08:56:00 [facility] ELECTROLYTE PANEL 2021-10-22 [facility] 08:56:00 [facility] SERUM CREATININE 2021-10-22 [facility] 08:56:00 [facility] .GLOMERULAR FILTRATION 2021-10-22 [facility] RATE 08:56:00 [facility] CALCIUM IONIZED, VENOUS 2021-10-22 [facility] 08:56:00 [facility] OSCILLATORY PEP 2021-10-22 [facility] 07:00:05 [facility] POC GLUCOSE SCREEN 2021-10-22 [facility] 04:54:00 [facility] Center POC GLUCOSE SCREEN 2021-10-22 [facility] 04:41:00 [facility] OSCILLATORY PEP 2021-10-22 [facility] 01:00:10 [facility] POC GLUCOSE SCREEN 2021-10-21 [facility] 22:54:00 [facility] COMPLETE BLOOD COUNT W/ 2021-10-21 [facility] DIFFERENTIAL 21:31:00 [facility] Results CBC 2021-10-21 [facility] 21:31:00 [facility] MANUAL DIFFERENTIAL 2021-10-21 [facility] [place] [facility] 21:31:00 [facility] OSCILLATORY PEP 2021-10-21 [facility] 19:00:59 [facility] POC GLUCOSE SCREEN 2021-10-21 [facility] 16:55:00 [facility] ARTERIAL BLOOD GAS 2021-10-21 [facility] 16:54:00 [facility] PETCT SUBSEQUENT TREATMENT 2021-10-21 Adame Cintia [facility] STRATEGY 13:59:05 [facility] OSCILLATORY PEP 2021-10-21 [facility] 13:00:06 [facility] POC GLUCOSE SCREEN 2021-10-21 [facility] 11:09:00 [facility] OSCILLATORY PEP 2021-10-21 [facility] 10:25:25 [facility] TYPE AND SCREEN 2021-10-21 [facility] 09:04:00 [facility] BASIC METABOLIC PANEL, 2021-10-21 [facility] CALCIUM IONIZED 09:04:00 [facility] MAGNESIUM LEVEL 2021-10-21 [facility] 09:04:00 [facility] PHOSPHORUS LEVEL 2021-10-21 [facility] 09:04:00 [facility] COMPLETE BLOOD COUNT W/ 2021-10-21 [facility] DIFFERENTIAL 09:04:00 [facility] ANTIBODY SCREEN 2021-10-21 [facility] 09:04:00 [facility] Results CBC 2021-10-21 [facility] 09:04:00 [facility] MANUAL DIFFERENTIAL 2021-10-21 [facility] [place] 09:04:00 [facility] GLUCOSE LEVEL 2021-10-21 [facility] 09:04:00 [facility] BLOOD UREA NITROGEN 2021-10-21 [facility] [place] 09:04:00 [facility] ELECTROLYTE PANEL 2021-10-21 [facility] 09:04:00 [facility] SERUM CREATININE 2021-10-21 [facility] 09:04:00 [facility] .GLOMERULAR FILTRATION 2021-10-21 [facility] RATE 09:04:00 [facility] CALCIUM IONIZED, VENOUS 2021-10-21 Cintia Adame [facility] 09:04:00 [facility] ABORH MANUAL 2021-10-21 Cintia Adame [facility] 09:04:00 [facility] TMP INTERPRETATION 2021-10-21 Wendi Cintia [facility] ANTIBODY SCREEN NEGATIVE 09:04:00 [facility] CLOT EXPIRATION DATE 2021-10-21 Wendi Cintia [facility] 09:04:00 [facility] CT SOFT TISSUE NECK W 2021-10-21 Wendi Cintia [facility] CONTRAST 07:22:00 [facility] POC GLUCOSE SCREEN 2021-10-21 Wedni [facility] 05:36:00 [facility] TRANSFUSE RED BLOOD CELLS 2021-10-21 Cintia Adame [facility] 03:53:00 [facility] VERIFY CATHETER TIP 2021-10-21 Osman Villalobos [facility] PLACEMENT 02:42:47 [facility] XR CHEST 2 VW POST IMPLANT 2021-10-21 Cintia Adame [facility] 01:56:00 [facility] INSERT VASCULAR ACCESS 2021-10-21 Cintia Adame [facility] DEVICE 00:45:00 [facility] POC GLUCOSE SCREEN 2021-10-20 Wendi Cintia [facility] 23:19:00 [facility] VASCULAR ACCESS ULTRASOUND 2021-10-20 Cintia Adame [facility] 21:26:50 [facility] COMPLETE BLOOD COUNT W/ 2021-10-20 Cintia Adame [facility] DIFFERENTIAL 20:04:00 [facility] Results CBC 2021-10-20 Wendi Cintia [facility] [place] 20:04:00 [facility] MANUAL DIFFERENTIAL 2021-10-20 Cintia Adame [facility] 20:04:00 [facility] TMP EXCEPTION 2021-10-20 [facility] [place] 19:36:00 Bela Murphy MD [facility] XR CHEST 1 VW 2021-10-20 [facility] [place] 19:32:08 [facility] PREPARE RBC 2021-10-20 [facility] [place] 18:00:00 [facility] PRBC PRODUCT READY FOR 2021-10-20 [facility] 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 18:00:00 [facility] POC GLUCOSE SCREEN 2021-10-20 [facility] 17:04:00 [facility] POC GLUCOSE SCREEN 2021-10-20 [facility] 10:27:00 [facility] BASIC METABOLIC PANEL, 2021-10-20 [facility] CALCIUM IONIZED 06:06:00 [facility] MAGNESIUM LEVEL 2021-10-20 [facility] [place] 06:06:00 [facility] PHOSPHORUS LEVEL 2021-10-20 [facility] 06:06:00 [facility] HEPATIC FUNCTION PANEL 2021-10-20 [facility] 06:06:00 [facility] COMPLETE BLOOD COUNT W/ 2021-10-20 [facility] 06:06[facility]00 [facility] Results CBC 2021-10-20 [facility] [place] 06:06:00 [facility] MANUAL DIFFERENTIAL 2021-10-20 [facility] 06:06:00 [facility] GLUCOSE LEVEL 2021-10-20 [facility] [place] 06:06:00 [facility] BLOOD UREA NITROGEN 2021-10-20 [facility] 06:06:00 [facility] ELECTROLYTE PANEL 2021-10-20 [facility] 06:06:00 [facility] SERUM CREATININE 2021-10-20 [facility] [place] 06:06:00 [facility] .GLOMERULAR FILTRATION 2021-10-20 [facility] RATE 06:06:00 [facility] ALBUMIN LEVEL 2021-10-20 [facility] [place] 06:06:00 [facility] Center ALKALINE PHOSPHATASE 2021-10-20 [facility] 06:06:00 [facility] Center ALANINE AMINOTRANSFERASE 2021-10-20 [facility] 06:06:00 [facility] Center ASPARTATE AMINOTRANSFERASE 2021-10-20 [facility] 06:06:00 [facility] Center TOTAL PROTEIN 2021-10-20 [facility] xa 06:06:00 [facility] FRACTIONATED BILIRUBIN 2021-10-20 [facility] 06:06:00 [facility] CALCIUM IONIZED, VENOUS 2021-10-[facility] 06:06:00 [facility] Center POC GLUCOSE SCREEN 2021-10-20 [facility] 04:51:00 [facility] Center OSCILLATORY PEP 2021-10-20 [facility] xa 01:00:08 [facility] POC GLUCOSE SCREEN 2021-10-19 [facility] 22:35:00 [facility] Center COMPLETE BLOOD COUNT W/ 2021-10-19 [facility] DIFFERENTIAL 19:53:00 [facility] Center Results CBC 2021-10-19 Monika Mandujano [facility] ex 19:53:00 [facility] MANUAL DIFFERENTIAL 2021-10-19 Monika Mandujano [facility] 19:53:00 [facility] OSCILLATORY PEP 2021-10-19 [facility] [place] 17:00:11 [facility] Center POC GLUCOSE SCREEN 2021-10-19 [facility] 16:36:00 [facility] OSCILLATORY PEP 2021-10-19 [facility] [place] 13:00:06 [facility] POC GLUCOSE SCREEN 2021-10-19 [facility] 10:32:00 [facility] XR CHEST 1 VW PORTABLE 2021-10-19 [facility] 10:15:58 [facility] BASIC METABOLIC PANEL, 2021-10-19 [facility] CALCIUM IONIZED 06:04:00 [facility] MAGNESIUM LEVEL 2021-10-19 [facility] 06:04:00 [facility] PHOSPHORUS LEVEL 2021-10-[address] [place] [address] ex[place] 06:04:00 [facility] HEPATIC FUNCTION PANEL 2021-10-19 [facility] 06:04:00 [facility] COMPLETE BLOOD COUNT W/ 2021-10-19 [facility] DIFFERENTIAL 06:04:00 [facility] Results CBC 2021-10-19 Monika Mandujano [facility] ex 06:04:00 [facility] MANUAL DIFFERENTIAL 2021-10-19 Monika Mandujano [facility] 06:04:00 [facility] GLUCOSE LEVEL 2021-10-19 [facility] 06:04:00 [facility] BLOOD UREA NITROGEN 2021-10-19 [facility] 06:04:00 [facility] ELECTROLYTE PANEL 2021-10-19 [facility] 06:04:00 [facility] SERUM CREATININE 2021-10-19 [facility] 06:04:00 [facility] .GLOMERULAR FILTRATION 2021-10-19 [facility] RATE 06:04:00 [facility] ALBUMIN LEVEL 2021-10-19 [facility] 06:04:00 [facility] ALKALINE PHOSPHATASE 2021-10-19 [facility] 06:04:00 [facility] ALANINE AMINOTRANSFERASE 2021-10-19 [facility] 06:04:00 [facility] ASPARTATE AMINOTRANSFERASE 2021-10-19 [facility] 06:04:00 [facility] TOTAL PROTEIN 2021-10-19 Cintia Adame [facility] 06:04:00 [facility] FRACTIONATED BILIRUBIN 2021-10-19 [facility] 06:04:00 [facility] CALCIUM IONIZED, VENOUS 2021-10-19 Wendi Cintia [facility] 06:04:00 [facility] POC GLUCOSE SCREEN 2021-10-19 [facility] 05:02:00 [facility] CT ABDOMEN PELVIS WO 2021-10-19 Tori Velez [facility] CONTRAST 02:20:24 [facility] OSCILLATORY PEP 2021-10-19 [facility] 01:00:08 [facility] POC GLUCOSE SCREEN 2021-10-18 [facility] 23:48:00 [facility] OSCILLATORY PEP 2021-10-18 [facility] 21:02:10 [facility] BASIC METABOLIC PANEL, 2021-10-18 [facility] CALCIUM IONIZED 20:57:00 [facility] LACTIC ACID, VENOUS 2021-10-18 Monika Mandujano [facility] 20:57:00 [facility] CALCIUM IONIZED, VENOUS 2021-10-18 [facility] 20:57:00 [facility] ABORH MANUAL 2021-10-18 [facility] 20:57:00 [facility] CLOT EXPIRATION DATE 2021-10-18 Mellisa [facility] 20:57:00 [facility] VRE CULTURE 2021-10-18 Health system 20:57:00 [facility] ECHOCARDIOGRAM 2D COMPLETE 2021-10-18 Cintia Adame [facility] 20:16:32 [facility] POC GLUCOSE SCREEN 2021-10-18 Wendi [facility] 18:44:00 [facility] ARTERIAL BLOOD GAS 2021-10-18 Health system 18:26:00 [facility] APTT 2021-10-18 Health system 18:26:00 [facility] COMPLETE BLOOD COUNT W/ 2021-10-18 [facility] INDICES 18:26:00 [facility] MAGNESIUM LEVEL 2021-10-18 Health system 18:26:00 [facility] PHOSPHORUS LEVEL 2021-10-18 [facility] [place] 18:26:00 [facility] PROTHROMBIN TIME 2021-10-18 [facility] [place] 18:26:00 [facility] GLUCOSE LEVEL 2021-10-18 Health system 18:26:00 [facility] ELECTROLYTE PANEL 2021-10-18 Health system 18:26:00 [facility] SERUM CREATININE 2021-10-18 [facility] 18:26:00 [facility] .GLOMERULAR FILTRATION 2021-10-18 [facility] RATE 18:26:00 [facility] BLOOD UREA NITROGEN 2021-10-18 [facility] 18:26:00 [facility] XR CHEST 1 VW PORTABLE 2021-10-18 [facility] 18:21:00 [facility] POC ARTERIAL BLOOD GAS 2021-10-18 [facility] 18:19:00 [facility] POC CRITICAL 2021-10-18 [facility] 16:55:00 [facility] POC ARTERIAL BLOOD GAS 2021-10-18 [facility] 16:55:00 [facility] DIAGNOSTIC UPPER 2021-10-18 Yong Palma [facility] [place] GASTROINTESTINAL ENDOSCOPY 15:42:00 MD [facility] INTRALUMINAL 2021-10-18 Yong Palma [facility] [place] GASTROINTESTINAL TRACT 15:42:00 MD [facility] THROUGH ILEUM OSCILLATORY PEP 2021-10-18 [facility] 12:42:15 [facility] TYPE AND SCREEN 2021-10-18 [facility] 12:05:00 [facility] BASIC METABOLIC PANEL, 2021-10-18 [facility] 12:05:00 [facility] MAGNESIUM LEVEL 2021-10-18 [facility] 12:05:00 [facility] PHOSPHORUS LEVEL 2021-10-18 [facility] [place] 12:05:00 [facility] HEPATIC FUNCTION PANEL 2021-10-18 [facility] 12:05:00 [facility] COMPLETE BLOOD COUNT W/ 2021-10-18 [facility] DIFFERENTIAL 12:05:00 [facility] ANTIBODY SCREEN 2021-10-18 [facility] [place] 12:05:00 [facility] GLUCOSE LEVEL 2021-10-18 [facility] [place] 12:05:00 [facility] BLOOD UREA NITROGEN 2021-10-18 [facility] 12:05:00 [facility] ELECTROLYTE PANEL 2021-10-18 [facility] 12:05:00 [facility] SERUM CREATININE 2021-10-18 [facility] 12:05:00 [facility] .GLOMERULAR FILTRATION 2021-10-18 [facility] RATE 12:05:00 Maryse [facility] ALBUMIN LEVEL 2021-10-18 [facility] [place] 12:05:00 [facility] ALKALINE PHOSPHATASE 2021-10-18 [facility] 12:05:00 [facility] ALANINE AMINOTRANSFERASE 2021-10-18 [facility] 12:05:00 [facility] ASPARTATE AMINOTRANSFERASE 2021-10-18 [facility] 12:05:00 Maryse CRAWLEY [facility] TOTAL PROTEIN 2021-10-18 [facility] 12:05:00 Maryse CRAWLEY [facility] FRACTIONATED BILIRUBIN 2021-10-18 [facility] 12:05:00 Maryse CRAWLEY [facility] CALCIUM IONIZED, VENOUS 2021-10-18 [facility] 12:05:00 Maryse CRAWLEY [facility] Results CBC 2021-10-18 [facility] [place] 12:05:00 Maryse CRAWLEY [facility] MANUAL DIFFERENTIAL 2021-10-18 [facility] 12:05:00 Maryse CRAWLEY [facility] ABORH MANUAL 2021-10-18 [facility] 12:05:00 Maryse CRAWLEY [facility] TMP INTERPRETATION 2021-10-18 [facility] [place] ANTIBODY SCREEN NEGATIVE 12:05:00 Maryse [facility] CLOT EXPIRATION DATE 2021-10-18 [facility] 12:05:00 Maryse CRAWLEY [facility] TMP CROSSMATCH 2021-10-18 [facility] INTERPRETATION 12:05:00 Maryse CRAWLEY [facility] POC GLUCOSE SCREEN 2021-10-18 [facility] 10:37:00 [facility] Center POC GLUCOSE SCREEN 2021-10-18 [facility] 04:24:00 [facility] Center POC GLUCOSE SCREEN 2021-10-17 [facility] 23:32:00 [facility] BLOODCULTURE 2021-10-17 [facility] 17:56:00 [facility] Center POC GLUCOSE SCREEN 2021-10-17 [facility] 16:14:00 [facility] BASIC METABOLIC PANEL, 2021-10-17 Wendi [facility] CALCIUM IONIZED 11:29:00 [facility] MAGNESIUM LEVEL 2021-10-17 [facility] 11:29:00 [facility] PHOSPHORUS LEVEL 2021-10-17 [facility] 11:29:00 [facility] PROTHROMBIN TIME 2021-10-17 [facility] 11:29:00 Maryse [facility] APTT 2021-10-17 [facility] 11:29:00 Maryse [facility] HEPATIC FUNCTION PANEL 2021-10-17 [facility] 11:29:00 [facility] COMPLETE BLOOD COUNT W/ 2021-10-17 [facility] DIFFERENTIAL 11:29:00 [facility] GLUCOSE LEVEL 2021-10-17 [facility] [place] 11:29:00 Maryse [facility] BLOOD UREA NITROGEN 2021-10-17 [facility] 11:29:00 Maryse [facility] ELECTROLYTE PANEL 2021-10-17 [facility] 11:29:00 Maryse [facility] SERUM CREATININE 2021-10-17 [facility] 11:29:00 Maryse [facility] .GLOMERULAR FILTRATION 2021-10-17 [facility] RATE 11:29:00 Maryse [facility] ALBUMIN LEVEL 2021-10-17 [facility] 11:29:00 Maryse [facility] ALKALINE PHOSPHATASE 2021-10-17 [facility] 11:29:00 Maryse [facility] ALANINE AMINOTRANSFERASE 2021-10-17 [facility] 11:29:00 Maryse [facility] ASPARTATE AMINOTRANSFERASE 2021-10-17 [facility] 11:29:00 Maryse [facility] TOTAL PROTEIN 2021-10-17 [facility] 11:29:00 Maryse MD [facility] FRACTIONATED BILIRUBIN 2021-10-17 [facility] 11:29:00 [facility] [place] CALCIUM IONIZED, VENOUS 2021-10-17 [facility] 11:29:00 [facility] [place] Results CBC 2021-10-17 [facility] [place] 11:29:00 Maryse [facility] [place] MANUAL DIFFERENTIAL 2021-10-17 [facility] 11:29:00 [facility] Center POC GLUCOSE SCREEN 2021-10-17 [facility] [place] 09:56:00 [facility] POC GLUCOSE SCREEN 2021-10-17 [facility] [place] 05:05:00 [facility] [place] OSCILLATORY PEP 2021-10-17 [facility] [place] 01:00:13 [facility] POC GLUCOSE SCREEN 2021-10-16 [facility] [place] 22:07:00 [facility] [place] OSCILLATORY PEP 2021-10-16 [facility] [place] 21:00:05 [facility] [place] OSCILLATORY PEP 2021-10-16 [facility] [place] 17:00:13 [facility] [place] XR CHEST 1 VW PORTABLE 2021-10-16 [facility] 16:49:33 Maryse [facility] POC GLUCOSE SCREEN 2021-10-16 [facility] [place] 16:31:00 [facility] [place] OSCILLATORY PEP 2021-10-16 [facility] [place] 13:00:04 [facility] POC GLUCOSE SCREEN 2021-10-16 [facility] [place] 10:40:00 [facility] [place] BASIC METABOLIC PANEL, 2021-10-16 Cintia Adame [facility] CALCIUM IONIZED 06:29:00 [facility] MAGNESIUM LEVEL 2021-10-16 Adame, [facility] xas 06:29:00 [facility] PHOSPHORUS LEVEL 2021-10-16 Wendi Cintia [facility] [place] 06:29:00 [facility] PROTHROMBIN TIME 2021-10-16 Eugene, [facility] 06:29:00 Maryse [facility] APTT 2021-10-16 [facility] 06:29:00 Maryse [facility] HEPATIC FUNCTION PANEL 2021-10-16 [facility] 06:29:00 [facility] COMPLETE BLOOD COUNT W/ 2021-10-16 [facility] DIFFERENTIAL 06:29:00 [facility] Results CBC 2021-10-16 [facility] 06:29:00 [facility] MANUAL DIFFERENTIAL 2021-10-16 [facility] 06:29:00 [facility] GLUCOSE LEVEL 2021-10-16 Griselda [facility] 06:29:00 [facility] BLOOD UREA NITROGEN 2021-10-16 Griselda [facility] 06:29:00 [facility] ELECTROLYTE PANEL 2021-10-16 Griselda [facility] 06:29:00 [facility] SERUM CREATININE 2021-10-16 [facility] 06:29:00 [facility] .GLOMERULAR FILTRATION 2021-10-16 Osman Villalobos [facility] RATE 06:29:00 [facility] ALBUMIN LEVEL 2021-10-16 [facility] 06:29:00 [facility] ALKALINE PHOSPHATASE 2021-10-16 [facility] 06:29:00 [facility] ALANINE AMINOTRANSFERASE 2021-10-16 [facility] 06:29:00 [facility] ASPARTATE AMINOTRANSFERASE 2021-10-16 [facility] 06:29:00 [facility] TOTAL PROTEIN 2021-10-16 [facility] 06:29:00 [facility] FRACTIONATED BILIRUBIN 2021-10-16 [facility] 06:29:00 [facility] CALCIUM IONIZED, VENOUS 2021-10-16 Griselda [facility] 06:29:00 [facility] POC GLUCOSE SCREEN 2021-10-[address] [facility] [place] 04:18:00 Maryse [facility] URINE CULTURE 2021-10-16 Griselda [facility] 01:24:00 [facility] URINALYSIS WITH 2021-10-16 Griselda [facility] MICROSCOPIC IF INDICATED 01:23:00 MD [facility] URINALYSIS MICROSCOPIC 2021-10-16 Griselda [facility] 01:23:00 [facility] POC GLUCOSE SCREEN 2021-10-[address] [facility] [place] 22:34:00 Maryse [facility] OSCILLATORY PEP 2021-10-15 [facility] [place] 21:00:07 Maryse [facility] BASIC METABOLIC PANEL, 2021-10-15 [facility] CALCIUM IONIZED 19:55:00 [facility] MAGNESIUM LEVEL 2021-10-15 [facility] 19:55:00 [facility] PHOSPHORUS LEVEL 2021-10-15 [facility] [place] 19:55:00 [facility] GLUCOSE LEVEL 2021-10-15 Griselda [facility] 19:55:00 [facility] BLOOD UREA NITROGEN 2021-10-15 Griselda [facility] 19:55:00 [facility] ELECTROLYTE PANEL 2021-10-15 Griselda [facility] 19:55:00 [facility] SERUM CREATININE 2021-10-15 [facility] 19:55:00 [facility] .GLOMERULAR FILTRATION 2021-10-15 Osman Villalobos [facility] RATE 19:55:00 [facility] CALCIUM IONIZED, VENOUS 2021-10-15 Osman Villalobos [facility] 19:55:00 [facility] COMPLETE BLOOD COUNT W/ 2021-10-15 [facility] DIFFERENTIAL 19:55:00 [facility] Results CBC 2021-10-15 [facility] 19:55:00 [facility] MANUAL DIFFERENTIAL 2021-10-15 [facility] 19:55:00 [facility] POC GLUCOSE SCREEN 2021-10-15 [facility] [place] 17:00:00 Maryse [facility] COVID-19 (SARS-COV-2) 2021-10-15 [facility] ASYMPTOMATIC-LT 14:08:00 Maryse [facility] TRANSFUSE RED BLOOD CELLS 2021-10-15 Osman Villalobos [facility] 14:02:00 [facility] OSCILLATORY PEP 2021-10-15 [facility] 13:00:11 Maryse [facility] VRE CULTURE 2021-10-15 Osman Villalobos [facility] 12:52:00 [facility] TMP EXCEPTION 2021-10-15 [facility] 12:44:00 Maryse [facility] POC GLUCOSE SCREEN 2021-10-15 [facility] [place] 11:07:00 Maryse [facility] PREPARE RBC 2021-10-15 Osman Villalobos [facility] 07:55:00 [facility] PRBC PRODUCT READY FOR 2021-10-15 Osman Villalobos [facility] 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 SURFACE TOOL 07:55:00 [facility] COMPLETE BLOOD COUNT W/ 2021-10-15 Osman Villalobos [facility] DIFFERENTIAL 07:21:00 [facility] Results CBC 2021-10-15 Risulme, Osman [facility] 07:21:00 [facility] MANUAL DIFFERENTIAL 2021-10-15 Osman Villalobos [facility] 07:21:00 [facility] TYPE AND SCREEN 2021-10-15 Osman Villalobos [facility] 07:07:00 [facility] [facility] BASIC METABOLIC PANEL, 2021-10-15 Osman Villalobos [facility] CALCIUM IONIZED 07:07:00 [facility] MAGNESIUM LEVEL 2021-10-15 Griselda [facility] 07:07:00 [facility] ASPARTATE AMINOTRANSFERASE 2021-10-15 Osman Villalobos [facility] 07:[facility]00 [facility] ALANINE AMINOTRANSFERASE 2021-10-[address] [facility] 07:07:00 [facility] FRACTIONATED BILIRUBIN 2021-10-15 Osman Villalobos [facility] 07:07:00 [facility] LACTATE DEHYDROGENASE 2021-10-15 Osman Villalobos [facility] 07:07:00 [facility] Center ALKALINE PHOSPHATASE 2021-10-15 Osman Villalobos [facility] 07:07:00 [facility] Center ALBUMIN LEVEL 2021-10-15 Griselda [facility] 07:07:00 [facility] Center PHOSPHORUS LEVEL 2021-10-15 Griselda [facility] 07:07:00 [facility] Center ARTERIAL BLOOD GAS 2021-10-15 Osman Villalobos [facility] 07:07:00 [facility] Center THYROID STIMULATING 2021-10-15 Osman Villalobos [facility] HORMONE 07:07:00 [facility] FREE THYROXINE 2021-10-15 Griselda [facility] 07:07:00 [facility] Center TOTAL T3 2021-10-15 Osman Villalobos [facility] 07:07:00 [facility] Center AMYLASE LEVEL 2021-10-15 Griselda [facility] 07:07:00 [facility] Center LIPASE LEVEL 2021-10-15 Griselda [facility] 07:07:00 [facility] CARDIAC PANEL 2021-10-15 Griselda [facility] 07:07:00 [facility] NT PRO BNP 2021-10-15 Griselda [facility] 07:07:00 [facility] LACTIC ACID, VENOUS 2021-10-15 Griselda [facility] 07:07:00 [facility] PROTHROMBIN TIME 2021-10-15 Griselda [facility] 07:07:00 [facility] APTT 2021-10-15 Griselda [facility] 07:07:00 [facility] FIBRINOGEN ACTIVITY 2021-10-15 Griselda [facility] 07:07:00 [facility] GLUCOSE LEVEL 2021-10-15 Griselda [facility] 07:07:00 [facility] BLOOD UREA NITROGEN 2021-10-15 Griselda [facility] 07:07:00 [facility] ELECTROLYTE PANEL 2021-10-15 Griselda [facility] 07:07:00 [facility] SERUM CREATININE 2021-10-15 [facility] 07:[facility] .GLOMERULAR FILTRATION 2021-10-15 Griselda [facility] RATE 07:07:00 [facility] CALCIUM IONIZED, VENOUS 2021-10-15 Griselda [facility] 07:07:00 [facility] Center ABORH 2021-10-15 Griselda [facility] 07:07:00 [facility] ANTIBODY SCREEN 2021-10-15 Griselda [facility] 07:07:00 [facility] CLOT EXPIRATION DATE 2021-10-15 Griselda [facility] 07:07:00 [facility] TMP INTERPRETATION 2021-10-15 Griselda [facility] ANTIBODY SCREEN NEGATIVE 07:07:00 [facility] TMP CROSSMATCH 2021-10-15 Osman Villalobos [facility] INTERPRETATION 07:07:00 [facility] BLOODCULTURE 2021-10-15 Osman Villalobos [facility] 07:07:00 [facility] XR CHEST 1 VW 2021-10-15 Osman Villalobos [facility] 06:26:13 [facility] OSCILLATORY PEP 2021-10-15 Sharlene Knight [facility]as 05:45:05 Maryse [facility] POC GLUCOSE SCREEN 2021-10-15 Sofya Elmore [facility] 05:42:00 [facility] EKG, 12-LEAD (PORTABLE) 2021-10-15 Osman Villalobos [facility] 00:00:00 [facility] OSI CHEST 2021-10-14 Vivian [facility] [place] 14:45:00 [facility] [place] MODIFIED BARIUM SWALLOW 2021-09-23 Ene Polk [facility] W SPEECH 15:46:[address] [facility] [address] SOFT TISSUE NECK W 2021-09-20 [facility] CONTRAST 21:26:19 [facility] CT CHEST W CONTRAST 2021-09-20 [facility] [place] 21:26:19 [facility] BLOOD UREA NITROGEN 2021-09-20 [facility] [place] 16:58:00 [facility] SERUM CREATININE 2021-09-20 [facility] [place] 16:58:00 [facility] THYROID STIMULATING 2021-09-20 [facility] [place] HORMONE 16:58:00 [facility] FREE THYROXINE 2021-09-20 [facility] x[place] 16:58:00 [facility] SERUM CREATININE 2021-09-20 [facility] 16:58:00 [facility] .GLOMERULAR FILTRATION 2021-09-20 [facility] RATE 16:58:00 [facility] Center POC GLUCOSE SCREEN 2021-08-31 Davis Rush [facility] 15:15:00 [facility] BASIC METABOLIC PANEL, 2021-08-31 ThopLeida waddell [facility] CALCIUM TOTAL 09:26:00 [facility] MAGNESIUM LEVEL 2021-08-31oppiLeida cole [facility] exas 09:26:00 [facility] PHOSPHORUS LEVEL 2021-08-31 opLeida waddell [facility] 09:26:00 [facility] COMPLETE BLOOD COUNT W/ 2021-08-31opLeida waddell [facility] DIFFERENTIAL 09:26:00 [facility] GLUCOSE LEVEL 2021-08-31 opLeida cole [facility] ex 09:26:00 [facility] BLOOD UREA NITROGEN 2021-08-31 [facility] 09:26:00 [facility] ELECTROLYTE PANEL 2021-08-31 [facility] 09:26:00 [facility] SERUM CREATININE 2021-08-31 [facility] 09:26:00 [facility] .GLOMERULAR FILTRATION 2021-08-31 Leida reaves [facility] RATE 09:26:00 [facility] CALCIUM LEVEL TOTAL 2021-08-31 [facility] 09:26:00 [facility] Results CBC 2021-08-31 [facility] 09:26:00 [facility] MANUAL DIFFERENTIAL 2021-08-31 [facility] 09:26:00 [facility] POC GLUCOSE SCREEN 2021-08-31 Sienna [facility] 03:06:00 [facility] POC GLUCOSE SCREEN 2021-08-30 Sienna [facility] 21:50:00 [facility] [place] MODIFIED BARIUM SWALLOW 2021-08-30 Robert Rashid [facility] W SPEECH 20:15:38 [facility] POC GLUCOSE SCREEN 2021-08-30 [facility] 17:35:00 [facility] POC GLUCOSE SCREEN 2021-08-30 [facility] 12:52:00 [facility] BASIC METABOLIC PANEL, 2021-08-30 Leida Frank [facility] CALCIUM TOTAL 09:36:00 [facility] MAGNESIUM LEVEL 2021-08-30 ThLeida reaves [facility] exas 09:36:00 [facility] PHOSPHORUS LEVEL 2021-08-30 [facility] 09:36:00 [facility] COMPLETE BLOOD COUNT W/ 2021-08-30 Leida Frank [facility] DIFFERENTIAL 09:36:00 [facility] GLUCOSE LEVEL 2021-08-30 Leida reaves [facility] exas 09:36:00 [facility] BLOOD UREA NITROGEN 2021-08-30 Leida reaves [facility] 09:36:00 [facility] ELECTROLYTE PANEL 2021-08-30 [facility] 09:36:00 [facility] SERUM CREATININE 2021-08-30 Leida reaves [facility] 09:36:00 [facility] .GLOMERULAR FILTRATION 2021-08-30 Leida Frank [facility] RATE 09:36:00 [facility] CALCIUM LEVEL TOTAL 2021-08-30 Leida reaves [facility] 09:36:00 [facility] Results CBC 2021-08-30 [facility] 09:36:00 [facility] MANUAL DIFFERENTIAL 2021-08-30 Leida reaves [facility] 09:36:00 [facility] POC GLUCOSE SCREEN 2021-08-30 [facility] 03:07:00 [facility] XR ABDOMEN 1 VW PORTABLE 2021-08-29 [facility] 23:11:44 [facility] POC GLUCOSE SCREEN 2021-08-29 [facility] 22:46:00 [facility] POC GLUCOSE SCREEN 2021-08-29 [facility] 21:32:00 [facility] PATHOLOGY BIOPSY 2021-08-29 Michael Lam [facility] INTERPRETATION 19:14:00 [facility] DIAGNOSTIC UPPER 2021-08-29 Michael Lam [facility] GASTROINTESTINAL ENDOSCOPY 18:46:00 MD Yue martinez [facility] DIAGNOSTIC FLEXIBLE 2021-08-29 Michael Lam [facility] COLONOSCOPY PROXIMAL TO 18:46:00 MD Patel [facility] SPLENIC FLEXURE Center POC GLUCOSE SCREEN 2021-08-29 [facility] 18:22:00 [facility] POC GLUCOSE SCREEN 2021-08-29 [facility] 15:21:00 [facility] BASIC METABOLIC PANEL, 2021-08-29 Leida Frank [facility] CALCIUM TOTAL 10:31:00 [facility] MAGNESIUM LEVEL 2021-08-29 Leida Frank [facility] 10:31:00 [facility] PHOSPHORUS LEVEL 2021-08-29 Leida Frank [facility] 10:31:00 [facility] COMPLETE BLOOD COUNT W/ 2021-08-29 Leida Frank [facility] DIFFERENTIAL 10:31:00 [facility] PROTHROMBIN TIME 2021-08-29 Robert Rashid [facility] 10:31:00 [facility] GLUCOSE LEVEL 2021-08-29 Leida Frank [facility] ex 10:31:00 [facility] BLOOD UREA NITROGEN 2021-08-29 Leida Frank [facility] 10:31:00 [facility] ELECTROLYTE PANEL 2021-08-29 Leida Frank [facility] 10:31:00 [facility] SERUM CREATININE 2021-08-29 Leida Frank [facility] 10:31:00 [facility] .GLOMERULAR FILTRATION 2021-08-29 Leida Frank [facility] RATE 10:31:00 [facility] CALCIUM LEVEL TOTAL 2021-08-29 Leida Frank [facility] 10:31:00 [facility] Results CBC 2021-08-29 Leida Frank [facility] 10:31:00 [facility] MANUAL DIFFERENTIAL 2021-08-29 Leida Frank [facility] 10:31:00 [facility] POC GLUCOSE SCREEN 2021-08-29 [facility] 02:15:00 [facility] POC GLUCOSE SCREEN 2021-08-28 Rashid, [facility] 21:24:00 [facility] POC GLUCOSE SCREEN 2021-08-28 [facility], [facility] 13:49:00 [facility] BASIC METABOLIC PANEL, 2021-08-28 Leida Frank [facility] CALCIUM TOTAL 08:13:00 [facility] MAGNESIUM LEVEL 2021-08-28 Leida Frank [facility] ex 08:13:00 [facility] PHOSPHORUS LEVEL 2021-08-28 Leida Frank [facility] 08:13:00 [facility] COMPLETE BLOOD COUNT W/ 2021-08-28 Leida Frank [facility] DIFFERENTIAL 08:13:00 [facility] GLUCOSE LEVEL 2021-08-28 Leida Frank [facility] 08:13:00 [facility] BLOOD UREA NITROGEN 2021-08-28 Leida Frank [facility] 08:13:00 [facility] ELECTROLYTE PANEL 2021-08-28 Leida Frank [facility] 08:13:00 [facility] SERUM CREATININE 2021-08-28 Leida Frank [facility] 08:13:00 [facility] .GLOMERULAR FILTRATION 2021-08-28 Leida Frank [facility] RATE 08:13:00 [facility] CALCIUM LEVEL TOTAL 2021-08-28 Leida Frank [facility] 08:13:00 [facility] Results CBC 2021-08-28 Leida Frank [facility] ex 08:13:00 [facility] MANUAL DIFFERENTIAL 2021-08-28 Leida Frank [facility] 08:13:00 [facility] POC GLUCOSE SCREEN 2021-08-28 Rashid [facility] 03:20:00 [facility] POC GLUCOSE SCREEN 2021-08-27 Rashid, [facility] 18:30:00 [facility] POC GLUCOSE SCREEN 2021-08-27 Rashid, [facility] 13:47:00 [facility] BASIC METABOLIC PANEL, 2021-08-27 Leida Frank [facility] CALCIUM TOTAL 09:47:00 [facility] MAGNESIUM LEVEL 2021-08-27 Leida Frank [facility] ex 09:47:00 [facility] PHOSPHORUS LEVEL 2021-08-27 Leida reaves [facility] 09:47:00 [facility] COMPLETE BLOOD COUNT W/ 2021-08-27 Leida Frank [facility] DIFFERENTIAL 09:47:00 [facility] GLUCOSE LEVEL 2021-08-27 Carlyle [facility] 09:47:00 [facility] BLOOD UREA NITROGEN 2021-08-27 Susan Tadeo [facility] 09:47:00 [facility] ELECTROLYTE PANEL 2021-08-27 Susan Tadeo [facility] 09:47:00 [facility] SERUM CREATININE 2021-08-27 Carlyle [facility] 09:47:00 [facility] .GLOMERULAR FILTRATION 2021-08-27 Susan Tadeo [facility] RATE 09:47:00 [facility] CALCIUM LEVEL TOTAL 2021-08-27 Tadeo, [facility] 09:47:00 [facility] Center Results CBC 2021-08-27 Carlyle [facility] 09:47:00 [facility] Center MANUAL DIFFERENTIAL 2021-08-27 Susan Tadeo [facility] 09:47:00 [facility] Center POC GLUCOSE SCREEN 2021-08-27 Rajendra Brooks [facility] 01:25:00 [facility] Center POC GLUCOSE SCREEN 2021-08-26 Rajendra Brooks [facility] 21:49:00 [facility] Center POC GLUCOSE SCREEN 2021-08-26 Olegario Rain [facility] 17:17:00 [facility] Center POC GLUCOSE SCREEN 2021-08-26 Olegario Rain [facility] 13:44:00 [facility] BASIC METABOLIC PANEL, 2021-08-26 Leida Frank [facility] CALCIUM TOTAL 13:10:00 [facility] MAGNESIUM LEVEL 2021-08-26 Leida Frank [facility] 13:10:00 [facility] PHOSPHORUS LEVEL 2021-08-26 Leida reaves [facility] 13:10:00 [facility] COMPLETE BLOOD COUNT W/ 2021-08-26 Leida Frank [facility] DIFFERENTIAL 13:10:00 [facility] Center GLUCOSE LEVEL 2021-08-26 Carlyle [facility] 13:10:00 [facility] BLOOD UREA NITROGEN 2021-08-26 Susan Tadeo [facility] 13:10:00 [facility] ELECTROLYTE PANEL 2021-08-26 Carlyle [facility] 13:10:00 [facility] SERUM CREATININE 2021-08-26 Carlyle [facility] 13:10:00 [facility] .GLOMERULAR FILTRATION 2021-08-26 Susan Tadeo [facility] RATE 13:10:00 [facility] CALCIUM LEVEL TOTAL 2021-08-26 Carlyle [facility] 13:10:00 [facility] Results CBC 2021-08-26 Carlyle [facility] 13:10:00 [facility] Center MANUAL DIFFERENTIAL 2021-08-26 Carlyle [facility] 13:10:00 [facility] TRANSFUSE RED BLOOD CELLS 2021[facility]08-26 [facility] 09:17[facility]00 [facility] TRANSFUSE RED BLOOD CELLS 2021-08-26 Carlyle [facility] 05:58:00 [facility] POC GLUCOSE SCREEN 2021-08-26 Olegario Rain [facility] 04:03:00 [facility] CONFIRM ABORH TYPE 2021-08-25 Hilario Pardo [facility] 23:19:00 [facility] Center TYPE AND SCREEN 2021-08-25 Jonathan [facility] xas 23:15:00 [facility] COMPREHENSIVE METABOLIC 2021-08-25 Bossman Castillo [facility] PANEL 23:15:00 [facility] MAGNESIUM LEVEL 2021-08-25 [facility]:15[facility]00 [facility] PHOSPHORUS LEVEL 2021-08-25 Jonathan Bossman [facility]as 23:15:00 [facility] PROTHROMBIN TIME 2021-08-25 Jonathan [facility] 23:15:00 [facility] APTT 2021-08-25 Jonathan [facility] 23:15:00 [facility] Center ABORH 2021-08-25 Jonathan [facility] 23:15:00 [facility] GLUCOSE LEVEL 2021-08-25 [facility] 23:15:00 [facility] BLOOD UREA NITROGEN 2021-08-25 Bossman Castillo [facility] 23:15:00 [facility] ANTIBODY SCREEN 2021-08-25 Jonathan [facility] 23:15:00 [facility] ELECTROLYTE PANEL 2021-08-25 Bossman Castillo [facility] 23:15:00 [facility] SERUM CREATININE 2021-08-25 Jonathan Bossman [facility] 23:15:00 [facility] .GLOMERULAR FILTRATION 2021-08-25 Jonathan [facility] RATE 23:15:00 [facility] CALCIUM LEVEL TOTAL 2021-08-25 Bossman Castillo [facility] [facility] [place] 23:15:00 [facility] ALBUMIN LEVEL 2021-08-25 Jonathan [facility] 23:15:00 [facility] ALKALINE PHOSPHATASE 2021-08-25 Jonathan [facility] 23:15:00 [facility] ALANINE AMINOTRANSFERASE 2021-08-25 Bossman Castillo [facility] 23:15:00 [facility] ASPARTATE AMINOTRANSFERASE 2021-08-25 Bossman Castillo [facility] 23:15:00 [facility] TOTAL PROTEIN 2021-08-25 Bossman Castillo [facility] 23:15:00 [facility] FRACTIONATED BILIRUBIN 2021-08-25 Jonathan [facility] 23:15:00 [facility] CLOT EXPIRATION DATE 2021-08-25 Bossman Castillo [facility] 23:15:00 [facility] TMP INTERPRETATION 2021-08-25 Bossman Castillo [facility] ANTIBODY SCREEN NEGATIVE 23:15:00 [facility] TMP CROSSMATCH 2021-08-25 Jonathan [facility] INTERPRETATION 23:15:00 [facility] COVID-19 (SARS-COV-2) 2021-08-25 Bossman Castillo [facility] ASYMPTOMATIC-LT 23:15:00 [facility] PREPARE RBC 2021-08-25 Susan Tadeo [facility] 21:47:00 [facility] PRBC PRODUCT READY FOR 2021-08-25 Bossman Castillo [facility] 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 SURFACE TOOL 21:47:00 [facility] COMPLETE BLOOD COUNT W/ 2021-08-25 Lloyd Perez [facility] DIFFERENTIAL 17:41:49 [facility] Results CBC 2021-08-25 Lloyd Perez [facility] 17:41:49 [facility] MANUAL DIFFERENTIAL 2021-08-25 Lloyd Perez [facility] 17:41:49 [facility] XR CHEST 2 VW 2021-08-25 Anca Maurer [facility] 16:17:44 [facility] FLEXIBLE NASOPHARYNGEAL 2021-08-22 Rebecca Brown [facility] LARYNGOSCOPY 15:38:27 [facility] COVID-19 (SARS-COV-2) 2021-08-20 Alexandra Dawson [facility] PCR-ASYMPTOMATIC MC 19:44:00 [facility] POC GLUCOSE SCREEN 2021-07-12 Cintia Adame [facility] 23:42:00 [facility] BASIC METABOLIC PANEL, 2021-07-12 [facility] CALCIUM TOTAL 21:09:00 [facility] MAGNESIUM LEVEL 2021-07-12 [facility] 21:09:00 [facility] PHOSPHORUS LEVEL 2021-07-12 [facility] 21:09:00 [facility] GLUCOSE LEVEL 2021-07-12 [facility] 21:09:00 Ino CRAWLEY [facility] BLOOD UREA NITROGEN 2021-07-12 [facility] 21:09:00 Ino CRAWLEY [facility] ELECTROLYTE PANEL 2021-07-12 [facility] 21:09:00 Ino CRAWLEY [facility] SERUM CREATININE 2021-07-12 [facility] 21:09:00 Ino CRAWLEY [facility] .GLOMERULAR FILTRATION 2021-07-12 [facility] 21:09:00 Ino CRAWLEY [facility] CALCIUM LEVEL TOTAL 2021-07-12 [facility] 21:09:00 [facility] POC GLUCOSE SCREEN 2021-07-12 Wendi [facility] 19:45:00 [facility] POC GLUCOSE SCREEN 2021-07-12 Adame [facility] 15:40:00 [facility] COMPLETE BLOOD COUNT W/ 2021-07-12 Sharlene Knight [facility] DIFFERENTIAL 07:56:00 Maryse CRAWLEY [facility] BASIC METABOLIC PANEL, 2021-07-12 [facility] CALCIUM TOTAL 07:56:00 [facility] MAGNESIUM LEVEL 2021-07-12 [facility] 07:56:00 [facility] PHOSPHORUS LEVEL 2021-07-12 [facility] 07:56:00 [facility] GLUCOSE LEVEL 2021-07-12 [facility] 07:56:00 Ino CRAWLEY [facility] BLOOD UREA NITROGEN 2021-07-12 [facility] 07:56:00 Ino CRAWLEY [facility] ELECTROLYTE PANEL 2021-07-12 [facility] 07:56:00 Ino CRAWLEY [facility] SERUM CREATININE 2021-07-12 [facility] 07:56:00 Ino CRAWLEY [facility] .GLOMERULAR FILTRATION 2021-07-12 [facility] 07:56:00 Ino Dorantes [facility] CALCIUM LEVEL TOTAL 2021-07-12 [facility] 07:56:00 Ino CRAWLEY [facility] Results CBC 2021-07-12 [facility] 07:56:00 Maryse CRAWLEY [facility] [facility] MANUAL DIFFERENTIAL 2021-07-12 [facility] 07:[facility]00 Maryse CRAWLEY [facility] POC GLUCOSE SCREEN 2021-07-12 Adame [facility] 04:09:00 MD Dorantes [facility] POC GLUCOSE SCREEN 2021-07-12 Adame [facility] 02:52:00 [facility] Center POC GLUCOSE SCREEN 2021-07-11 Wendi [facility] 22:27:00 [facility] ECHOCARDIOGRAM 2D COMPLETE 2021-07-11 [facility] 22:16:42 [facility] BASIC METABOLIC PANEL, 2021-07-11 [facility] CALCIUM TOTAL 20:33:00 [facility] MAGNESIUM LEVEL 2021-07-11 [facility] 20:33:00 [facility] PHOSPHORUS LEVEL 2021-07-11 [facility] 20:33:00 [facility] GLUCOSE LEVEL 2021-07-11 [facility] 20:33:00 Ino CRAWLEY [facility] BLOOD UREA NITROGEN 2021-07-11 [facility] 20:33:00 Ino CRAWLEY [facility] ELECTROLYTE PANEL 2021-07-11 [facility] 20:33:00 Ino CRAWLEY [facility] SERUM CREATININE 2021-07-11 [facility] 20:33:00 Ino CRAWLEY [facility] .GLOMERULAR FILTRATION 2021-07-11 [facility] RATE 20:33:00 Ino CRAWLEY [facility] CALCIUM LEVEL TOTAL 2021-07-11 [facility] 20:33:00 Ino CRAWLEY [facility] POC GLUCOSE SCREEN 2021-07-11 Adame [facility] 18:33:00 [facility] Center POC GLUCOSE SCREEN 2021-07-11 [facility] 14:52:00 [facility] BASIC METABOLIC PANEL, 2021-07-11 [facility] CALCIUM TOTAL 08:00:00 [facility] Center MAGNESIUM LEVEL 2021-07-11 [facility] 08:00:00 [facility] Center PHOSPHORUS LEVEL 2021-07-11 Kwaku Yo [facility] 08:00:00 MD Dorantes [facility] GLUCOSE LEVEL 2021-07-11 [facility] 08:00:00 Ino CRAWLEY [facility] BLOOD UREA NITROGEN 2021-07-11 [facility] 08:00:00 Ino CRAWLEY [facility] ELECTROLYTE PANEL 2021-07-11 [facility] 08:00:00 Ino CRAWLEY [facility] SERUM CREATININE 2021-07-11 [facility] 08:00:00 Ino CRAWLEY [facility] .GLOMERULAR FILTRATION 2021-07-11 [facility] RATE 08:00:00 Ino CRAWLEY [facility] CALCIUM LEVEL TOTAL 2021-07-11 [facility] 08:00:00 Ino CRAWLEY [facility] COMPLETE BLOOD COUNT W/ 2021-07-11 Sharlene Knight [facility] DIFFERENTIAL 07:46:00 Maryse CRAWLEY [facility] Results CBC 2021-07-11 [facility] 07:46:00 Maryse CRAWLEY [facility] MANUAL DIFFERENTIAL 2021-07-11 Eugene [facility] 07:46:00 Maryse CRAWLEY [facility] POC GLUCOSE SCREEN 2021-07-11 [facility] 03:45:00 Ino CRAWLEY [facility] POC GLUCOSE SCREEN 2021-07-11 [facility] 01:36:00 Ino CRAWLEY [facility] EKG, 12-LEAD (PORTABLE) 2021-07-11 Kwaku Yo [facility] 00:00:00 [facility] POC GLUCOSE SCREEN 2021-07-10 [facility]olynInterm[facility] 22:26:00 Ino CRAWLEY [facility] BASIC METABOLIC PANEL, 2021-07-10 Kwaku Yo [facility] CALCIUM TOTAL 21:02:00 [facility] MAGNESIUM LEVEL 2021-07-10 Kwaku Yo [facility] 21:02:00 [facility] PHOSPHORUS LEVEL 2021-07-10 Kwaku Yo Dcpayton [facility] 21:02:00 [facility] GLUCOSE LEVEL 2021-07-10 [facility] 21:02:00 Ino CRAWLEY [facility] BLOOD UREA NITROGEN 2021-07-10 [facility]ynR[facility] 21:02:00 Ino CRAWLEY [facility] ELECTROLYTE PANEL 2021-07-10 [facility]in[facility] healthlienGwendolynInterm[facility] 21:02:00 Ino CRAWLEY [facility] SERUM CREATININE 2021-07-10 [facility] 21:02:00 Ino CRAWLEY [facility] .GLOMERULAR FILTRATION 2021-07-10 [facility] RATE 21:02:00 Ino CRAWLEY [facility] CALCIUM LEVEL TOTAL 2021-07-10 GabrielG[facility]olynR[facility] 21:02:00 Ino CRAWLEY [facility] POC GLUCOSE SCREEN 2021-07-10 [facility] CenterlaurenIn[facility] 17:40:00 Ino CRAWLEY [facility] COMPLETE BLOOD COUNT W/ 2021-07-10 Sharlene Knight [facility] DIFFERENTIAL 12:09:00 Maryse CRAWLEY [facility] BASIC METABOLIC PANEL, 2021-07-10 Kwaku Yo [facility] CALCIUM TOTAL 12:09:00 [facility] MAGNESIUM LEVEL 2021-07-10 Srianth Kwaku Dcpayton [facility] 12:09:00 [facility] PHOSPHORUS LEVEL 2021-07-10 [facility] 12:09:00 [facility] TROPONIN T 2021-07-10 Srinath [facility] 12:09:00 [facility] GLUCOSE LEVEL 2021-07-10 [facility] 12:09:00 Ino CRAWLEY [facility] BLOOD UREA NITROGEN 2021-07-10 [facility] 12:09:00 Ino CRAWLEY [facility] ELECTROLYTE PANEL 2021-07-10 JuanG[facility]olynInterm[facility] Healthcare 12:09:00 Ino CRAWLEY [facility] SERUM CREATININE 2021-07-10 [facility] 12:09:00 Ino CRAWLEY [facility] .GLOMERULAR FILTRATION 2021-07-10 [facility] RATE 12:09:00 Ino CRAWLEY [facility] CALCIUM LEVEL TOTAL 2021-07-10 [facility] 12:09:00 Ino CRAWLEY [facility] Results CBC 2021-07-10 [facility] 12:09:00 Maryse CRAWLEY [facility] MANUAL DIFFERENTIAL 2021-07-10 [facility] 12:09:00 Maryse CRAWLEY [facility] POC GLUCOSE SCREEN 2021-07-10 [facility] HospitalfrancisGwendolynIn[facility] 05:11:00 Ino CRAWLEY [facility] MAGNESIUM LEVEL 2021-07-10 [facility] 04:35:00 [facility] PHOSPHORUS LEVEL 2021-07-10 [facility] 04:35:00 [facility] TROPONIN T 2021-07-10 [facility] 04:35:00 [facility] GLUCOSE LEVEL 2021-07-10 JuanGwendolynInterm[facility] Healthcare 04:35:00 Ino CRAWLEY [facility] ELECTROLYTE PANEL 2021-07-10 Markushelen hayes hospitalluisGwendolynInterm[facility] Healthcare 04:35:00 Ino CRAWLEY [facility] SERUM CREATININE 2021-07-10 [facility] 04:35:00 Ino CRAWLEY [facility] .GLOMERULAR FILTRATION 2021-07-10 [facility] RATE 04:35:00 Ino CRAWLEY [facility] CALCIUM IONIZED, VENOUS 2021-07-10 [facility]olynThe [facility] 04:35:00 Ino CRAWLEY [facility] BLOOD UREA NITROGEN 2021-07-10 [facility] 04:35:00 Ino CRAWLEY [facility] BASIC METABOLIC PANEL, 2021-07-10 Kwaku Yo [facility] CALCIUM IONIZED 04:35:00 [facility] LOWER RESPIRATORY CULTURE 2021-07-09 Kaushal Proctor [facility] W/ GRAM STAIN 23:33:00 [facility] POC GLUCOSE SCREEN 2021-07-09 JuanGwendolynIntermountain Healthcare 22:30:00 Ino CRAWLEY [facility] VASCULAR ACCESS ULTRASOUND 2021-07-09 [facility]olynAri[facility] iv[facility] 21:00:36 Ino CRAWLEY [facility] BASIC METABOLIC PANEL, 2021-07-09 [facility] CALCIUM TOTAL 19:45:00 [facility] MAGNESIUM LEVEL 2021-07-09 [facility] 19:45:00 [facility] PHOSPHORUS LEVEL 2021-07-09 [facility] 19:45:00 [facility] GLUCOSE LEVEL 2021-07-09 JuanGwendolynInterm[facility] Healthcare 19:45:00 Ino CRAWLEY [facility] BLOOD UREA NITROGEN 2021-07-09 [facility] 19:45:00 Ino CRAWLEY [facility] ELECTROLYTE PANEL 2021-07-09 [facility] 19:45:00 Ino CRAWLEY [facility] SERUM CREATININE 2021-07-09 [facility]GwendolynS[facility]ier [facility] 19:45:00 Ino CRAWLEY [facility] .GLOMERULAR FILTRATION 2021-07-09 [facility] RATE 19:45:00 Ino CRAWLEY [facility] CALCIUM LEVEL TOTAL 2021-07-09 [facility] 19:45:00 Ino CRAWLEY [facility] OSCILLATORY PEP 2021-07-09 Zandra, [facility] 19:21:45 Ino CRAWLEY [facility] POC GLUCOSE SCREEN 2021-07-09 Zandra, [facility] 18:42:00 Ino CRAWLEY [facility] POC GLUCOSE SCREEN 2021-07-09 Zandra, [facility] 14:56:00 Ino CRAWLEY [facility] TROPONIN T 2021-07-09 Kaushal Prcotor T [facility] 12:28:00 [facility] BASIC METABOLIC PANEL, 2021-07-09 [facility] 12:28:00 Maryse CRAWLEY [facility] COMPLETE BLOOD COUNT W/ 2021-07-09 [facility] 12:28:00 Maryse CRAWLEY [facility] MAGNESIUM LEVEL 2021-07-09 [facility] 12:28:00 Maryse CRAWLEY [facility] PHOSPHORUS LEVEL 2021-07-09 [facility] 12:28:00 Maryse CRAWLEY [facility] GLUCOSE LEVEL 2021-07-09 [facility] 12:28:00 Maryse CRAWLEY [facility] BLOOD UREA NITROGEN 2021-07-09 [facility] 12:28:00 Maryse CRAWLEY [facility] ELECTROLYTE PANEL 2021-07-09 [facility] 12:28:00 Maryse CRAWLEY [facility] SERUM CREATININE 2021-07-09 [facility] 12:28:00 Maryse CRAWLEY [facility] .GLOMERULAR FILTRATION 2021-07-09 [facility] RATE 12:28:00 Maryse CRAWLEY [facility] CALCIUM LEVEL TOTAL 2021-07-09 [facility] 12:28:00 Maryse CRAWLEY [facility] Results CBC 2021-07-09 [facility] 12:28:00 Maryse CRAWLEY [facility] MANUAL DIFFERENTIAL 2021-07-09 [facility] 12:28:00 Maryse [facility] POC GLUCOSE SCREEN 2021-07-09 [facility] [place] 04:08:00 Maryse [facility] POC GLUCOSE SCREEN 2021-07-08 [facility] [place] 23:49:00 Maryse [facility] STREPTOCOCCUS PNEUMONIAE 2021-07-08 [facility] URINE ANTIGEN 23:17:00 [facility] LEGIONELLA URINE ANTIGEN 2021-07-08 [facility] 23:17:00 [facility] LEGIONELLA URINE ANTIGEN 2021-07-08 [facility] PATH REVIEW 23:17:00 Maryse [facility] STREPTOCOCCAL URINE 2021-07-08 [facility] ANTIGEN PATH REVIEW 23:17:00 Maryse [facility] GENERAL LABORATORY ADD ON 2021-07-08 [facility] TEST 21:35:00 [facility] MRSA SCREENING CULTURE 2021-07-08 Kaushal Proctor [facility] 21:23:00 [facility] [address] CHEST PULMONARY 2021-07-08 Olegario Rain [facility] EMBOLISM W CONTRAST 19:38:55 [facility] XR ABDOMEN AP 2021-07-08 [facility] 19:31:37 [facility] POC CHEM 8 2021-07-08 [facility] xas 18:14:00 [facility] POC CRITICAL 2021-07-08 [facility] 18:14:00 [facility] COMPLETE BLOOD COUNT W/ 2021-07-08 Olegario Rain [facility] DIFFERENTIAL 18:13:00 [facility] COMPREHENSIVE METABOLIC 2021-07-08 Olegario Rain [facility] PANEL 18:13:00 [facility] MAGNESIUM LEVEL 2021-07-08 Olegario Rain [facility] 18:13:00 [facility] PHOSPHORUS LEVEL 2021-07-08 Olegario Rain [facility] 18:13:00 [facility] PROTHROMBIN TIME 2021-07-08 Olegario Rain [facility] 18:13:00 [facility] APTT 2021-07-08 Olegario Rain [facility] 18:13:00 [facility] D DIMER 2021-07-08 Olegario Rain [facility] 18:13:00 [facility] CARDIAC PANEL 2021-07-08 Olegario Rain [facility] 18:13:00 [facility] Results CBC 2021-07-08 Olegario Rain [facility] 18:13:00 [facility] MANUAL DIFFERENTIAL 2021-07-08 Olegario Rain [facility] 18:13:00 [facility] GLUCOSE LEVEL 2021-07-08 Olegario Rain [facility] 18:13:00 [facility] BLOOD UREA NITROGEN 2021-07-08 Olegario Rain [facility] 18:13:00 [facility] ELECTROLYTE PANEL 2021-07-08 Olegario Rain [facility] 18:13:00 [facility] SERUM CREATININE 2021-07-08 Olegario Rain [facility] 18:13:00 [facility] .GLOMERULAR FILTRATION 2021-07-08 Olegario Rain [facility] RATE 18:13:00 [facility] CALCIUM LEVEL TOTAL 2021-07-08 Olegario Rain [facility] 18:13:00 [facility] ALBUMIN LEVEL 2021-07-08 Olegario Rain [facility] 18:13:00 [facility] ALKALINE PHOSPHATASE 2021-07-08 Olegario Rain [facility] 18:13:00 [facility] ALANINE AMINOTRANSFERASE 2021-07-08 Olegario Rain [facility] 18:13:00 [facility] ASPARTATE AMINOTRANSFERASE 2021-07-08 Olegario Rain [facility] 18:13:00 [facility] TOTAL PROTEIN 2021-07-08 Olegario Rain [facility] 18:13:00 [facility] FRACTIONATED BILIRUBIN 2021-07-08 Olegario Rain [facility] 18:13:00 [facility] PROCALCITONIN 2021-07-08 Olegario Rain [facility] 18:13:00 [facility] XR CHEST 1 VW 2021-07-08 Olegario Rain [facility] 17:38:45 [facility] COVID-19 (SARS-COV-2) 2021-07-08 Olegario Rain [facility] ASYMPTOMATIC-LT 17:23:00 [facility] CT HEAD WO CONTRAST 2021-07-08 Olegario Rain [facility] 17:05:55 [facility] POC GLUCOSE SCREEN 2021-07-08 Josette Vasquez [facility] 16:47:00 [facility] EKG, 12-LEAD (PORTABLE) 2021-07-08 Olegario Rain [facility] 00:00:00 [facility] COMPREHENSIVE METABOLIC 2021-07-04 Gerda Yumi [facility] PANEL 17:10:00 [facility] COMPLETE BLOOD COUNT W/ 2021-07-04 Gerda [facility] DIFFERENTIAL 17:10:00 [facility] MAGNESIUM LEVEL 2021-07-04 [facility] 17:10:00 [facility] PHOSPHORUS LEVEL 2021-07-04 [facility] 17:10:00 [facility] GLUCOSE LEVEL 2021-07-04 [facility] xa 17:10:00 [facility] BLOOD UREA NITROGEN 2021-07-04 [facility] 17:10:00 [facility] ELECTROLYTE PANEL 2021-07-04 [facility] 17:10:00 [facility] SERUM CREATININE 2021-07-04 [facility] ex 17:10:00 [facility] .GLOMERULAR FILTRATION 2021-07-04 [facility] RATE 17:10:00 [facility] CALCIUM LEVEL TOTAL 2021-07-04 [facility] 17:10:00 [facility] ALBUMIN LEVEL 2021-07-04 [facility] xa 17:10:00 [facility] ALKALINE PHOSPHATASE 2021-07-04 [facility] 17:10:00 [facility] ALANINE AMINOTRANSFERASE 2021-07-04 [facility] 17:10:00 [facility] ASPARTATE AMINOTRANSFERASE 2021-07-04 [facility] 17:10:00 [facility] TOTAL PROTEIN 2021-07-04 [facility] 17:10:00 [facility] FRACTIONATED BILIRUBIN 2021-07-04 [facility] 17:10:00 [facility] Results CBC 2021-07-04 [facility]da [facility] xa 17:10:00 [facility] MANUAL DIFFERENTIAL 2021-07-04 Gerda [facility] 17:10:00 [facility] COMPREHENSIVE METABOLIC 2021-06-27 Gerda [facility] PANEL 14:00:00 [facility] COMPLETE BLOOD COUNT W/ 2021-06-27 [facility] DI[facility]ENTIAL 14:00:00 [facility] MAGNESIUM LEVEL 2021-06-27 [facility] 14:00:00 [facility] PHOSPHORUS LEVEL 2021-06-27 [facility] 14:00:00 [facility] GLUCOSE LEVEL 2021-06-27 [facility] xa 14:00:00 [facility] BLOOD UREA NITROGEN 2021-06-27 [facility] 14:00:00 [facility] ELECTROLYTE PANEL 2021-06-27 GerdaFormerly [facility] 14:00:00 [facility] SERUM CREATININE 2021-06-27 [facility] 14:00:00 [facility] .GLOMERULAR FILTRATION 2021-06-27 [facility] RATE 14:00:00 [facility] CALCIUM LEVEL TOTAL 2021-06-27 [facility] 14:00:00 [facility] ALBUMIN LEVEL 2021-06-27 [facility] xa 14:00:00 [facility] ALKALINE PHOSPHATASE 2021-06-27 [facility] 14:00:00 [facility] ALANINE AMINOTRANSFERASE 2021-06-27 [facility] 14:00:00 [facility] ASPARTATE AMINOTRANSFERASE 2021-06-27 [facility] 14:00:00 [facility] TOTAL PROTEIN 2021-06-27 [facility] xa 14:00:00 [facility] FRACTIONATED BILIRUBIN 2021-06-27 [facility] 14:00:00 [facility] Results CBC 2021-06-27 [facility] xa 14:00:00 [facility] MANUAL DIFFERENTIAL 2021-06-27 [facility] 14:00:00 [facility] TROPONIN T 2021-06-22 Jerel [facility] 21:45:00 [facility] COVID-19 (SARS-COV-2) 2021-06-22 Susan Ugalde [facility] ASYMPTOM[facility]IC-LT 17:54:00 [facility] COMPLETE BLOOD COUNT W/ 2021-06-22 Susan Ugalde U [facility] DIFFERENTIAL 17:54:00 [facility] COMPREHENSIVE METABOLIC 2021-06-22 Susan Ugalde [facility] PANEL 17:54:00 [facility] MAGNESIUM LEVEL 2021-06-22 Susan Ugalde [facility] 17:54:00 [facility] PHOSPHORUS LEVEL 2021-06-22 Susan Ugalde [facility] 17:54:00 [facility] NT PRO BNP 2021-06-22 Susan Ugalde [facility] 17:54:00 [facility] Center CREATINE KINASE 2021-06-22 Susan Ugalde [facility] 17:54:00 [facility] CKMB 2021-06-22 Susan Ugalde [facility] 17:54:00 [facility] Center Results CBC 2021-06-22 Susan Ugalde [facility] 17:54:00 [facility] Center MANUAL DIFFERENTIAL 2021-06-22 Susan [facility]galde [facility] [place] 17:54:00 [facility] GLUCOSE LEVEL 2021-06-22 Susan Ugalde [facility] 17:54:00 [facility] BLOOD UREA NITROGEN 2021-06-22 Susan Ugalde [facility] [place] 17:54:00 [facility] ELECTROLYTE PANEL 2021-06-22 Susan Ugalde [facility] 17:54:00 [facility] SERUM CREATININE 2021-06-22 Susan Ugalde [facility] 17:54:00 [facility] .GLOMERULAR FILTRATION 2021-06-22 Susan Ugalde Un [facility] [place] RATE 17:54:00 [facility] CALCIUM LEVEL TOTAL 2021-06-22 Susan Ugalde [facility] [place] 17:54:00 [facility] Center ALBUMIN LEVEL 2021-06-22 Susan Ugalde [facility] 17:54:00 [facility] ALKALINE PHOSPHATASE 2021-06-22 Susan Ugalde Univ [facility] 17:54:00 [facility] Center ALANINE AMINOTRANSFERASE 2021-06-22 Susan Ugalde [facility] 17:54:00 [facility] ASPARTATE AMINOTRANSFERASE 2021-06-22 Susan Ugalde [facility] 17:54:00 [facility] Center TOTAL PROTEIN 2021-06-22 Susan Ugalde [facility] 17:54:00 [facility] FRACTIONATED BILIRUBIN 2021-06-22 Susan [facility]galde [facility] [place] 17:54:00 [facility] EKG, 12-LEAD (PORTABLE) 2021-06-22 Susan [facility]galde [facility] [place] 00:00:00 [facility] CT HEAD/NECK SIMULATION WO 2021-06-21 Alexandra Dawson [facility] CONTRAST (RO) 15:00:13 [facility] COMPREHENSIVE METABOLIC 2021-06-20 [facility] PANEL 14:07:00 [facility] COMPLETE BLOOD COUNT W/ 2021-06-20 [facility] DIFFERENTIAL 14:07:00 [facility] MAGNESIUM LEVEL 2021-06-20 [facility] xa 14:07:00 [facility] PHOSPHORUS LEVEL 2021-06-20 [facility] 14:07:00 [facility] GLUCOSE LEVEL 2021-06-20 [facility] xa 14:07:00 [facility] BLOOD UREA NITROGEN 2021-06-20 [facility] 14:07:00 [facility] ELECTROLYTE PANEL 2021-06-20 [facility] 14:07:00 [facility] SERUM CREATININE 2021-06-20 [facility] 14:07:00 [facility] .GLOMERULAR FILTRATION 2021-06-20 [facility] RATE 14:07:00 [facility] CALCIUM LEVEL TOTAL 2021-06-20 [facility] 14:07:00 [facility] ALBUMIN LEVEL 2021-06-20 [facility] xas 14:07:00 [facility] ALKALINE PHOSPHATASE 2021-06-20 GerdaFormerly [facility] 14:07:00 [facility] ALANINE AMINOTRANSFERASE 2021-06-20 Yumi Lorenz [facility] Center 14:07:00 [facility] ASPARTATE AMINOTRANSFERASE 2021-06-20 Yumi Lorenz [facility] 14:07:00 [facility] TOTAL PROTEIN 2021-06-20 [facility] xas 14:07:00 [facility] FRACTIONATED BILIRUBIN 2021-06-20 [facility] 14:07:00 [facility] Results CBC [facility]-06[facility] MANUAL DIFFERENTIAL 2021-06-20 [facility] 14:07:00 [facility] COMPREHENSIVE METABOLIC 2021-06-13 [facility] 13:00:00 [facility] COMPLETE BLOOD COUNT W/ 2021-06-13 [facility] DIFFERENTIAL 13:00:00 [facility] MAGNESIUM LEVEL 2021-06-13 [facility] 13[facility]00 [facility] PHOSPHORUS LEVEL 2021-06-13 [facility] 13:00:00 [facility] GLUCOSE LEVEL 2021-06-13 [facility] 13:00:00 [facility] BLOOD UREA NITROGEN 2021-06-13 [facility] 13:00:00 [facility] ELECTROLYTE PANEL 2021-06-13 [facility] 13:00:00 [facility] SERUM CREATININE 2021-06-13 [facility] ex 13:00:00 [facility] .GLOMERULAR FILTRATION 2021-06-13 [facility] RATE 13:00:00 [facility] CALCIUM LEVEL TOTAL 2021-06-13 [facility] 13:00:00 [facility] ALBUMIN LEVEL 2021-06-13 [facility] xa 13:00:00 [facility] ALKALINE PHOSPHATASE 2021-06-13 [facility] 13:00:00 [facility] ALANINE AMINOTRANSFERASE 2021-06-13 [facility] 13:00:00 [facility] ASPARTATE AMINOTRANSFERASE 2021-06-13 Yumi Lorenz [facility] 13:00:00 [facility] TOTAL PROTEIN 2021-06-13 [facility] 13:[facility]00 [facility] FRACTIONATED BILIRUBIN 2021-06-13 [facility] 13:00:00 [facility] Results CBC 2021-06-13 [facility] 13:[facility]00 [facility] MANUAL DIFFERENTIAL 2021-06-13 [facility] 13:[facility]00 [facility] COMPREHENSIVE METABOLIC 2021-06-06 [facility] 12:58:00 [facility] COMPLETE BLOOD COUNT W/ 2021-06-06 [facility] DIFFERENTIAL 12:58:00 [facility] MAGNESIUM LEVEL 2021-06-06 [facility] 12:58:00 [facility] PHOSPHORUS LEVEL 2021-06-06 [facility] ex 12:58:00 [facility] GLUCOSE LEVEL 2021-06-06 [facility] 12:58:00 [facility] BLOOD UREA NITROGEN 2021-06-06 [facility] 12:58:00 [facility] ELECTROLYTE PANEL 2021-06-06 [facility] 12:58:00 [facility] SERUM CREATININE 2021-06-06 [facility] ex 12:58:00 [facility] .GLOMERULAR FILTRATION 2021-06-06 [facility] RATE 12:58:00 [facility] CALCIUM LEVEL TOTAL 2021-06-06 [facility] 12:58:00 [facility] ALBUMIN LEVEL 2021-06-06 [facility] 12:58:00 [facility] ALKALINE PHOSPHATASE 2021-06-06 [facility] 12:58:00 [facility] ALANINE AMINOTRANSFERASE 2021-06-06 [facility] 12:58:00 [facility] ASPARTATE AMINOTRANSFERASE 2021-06-06 Yumi Lorenz [facility] 12:58:00 [facility] TOTAL PROTEIN 2021-06-06 [facility] 12:58:00 [facility] FRACTIONATED BILIRUBIN 2021-06-06 [facility] 12:58:00 [facility] Results CBC 2021-06-06 [facility] xa 12:58:00 [facility] MANUAL DIFFERENTIAL 2021-06-06 [facility] 12:58:00 [facility] COMPREHENSIVE METABOLIC 2021-05-30 [facility] PANEL 14:28:00 [facility] COMPLETE BLOOD COUNT W/ 2021-05-30 [facility] DIFFERENTIAL 14:28:00 [facility] MAGNESIUM LEVEL 2021-05-30 [facility] 14:28:00 [facility] PHOSPHORUS LEVEL 2021-05-30 [facility] ex 14:28:00 [facility] GLUCOSE LEVEL 2021-05-30 [facility] 14:28:00 [facility] BLOOD UREA NITROGEN 2021-05-30 [facility] 14:28:00 [facility] ELECTROLYTE PANEL 2021-05-30 [facility] 14:28:00 [facility] SERUM CREATININE 2021-05-30 [facility] ex[facility] 14:28:00 [facility] .GLOMERULAR FILTRATION 2021-05-30 [facility] RATE 14:28:00 [facility] CALCIUM LEVEL TOTAL 2021-05-30 [facility] 14:28:00 [facility] ALBUMIN LEVEL 2021-05-30 [facility] 14:28[facility]00 [facility] ALKALINE PHOSPHATASE 2021-05-30 [facility] 14:28:00 [facility] ALANINE AMINOTRANSFERASE 2021-05-30 [facility] 14:28:00 [facility] ASPARTATE AMINOTRANSFERASE 2021-05-30 Gerda Yumi [facility] 14:28:00 [facility] TOTAL PROTEIN 2021-05-30 [facility] 14:28:00 [facility] FRACTIONATED BILIRUBIN 2021-05-30 [facility] 14:28:00 [facility] Results CBC 2021-05-30 [facility] 14:28:00 [facility] MANUAL DIFFERENTIAL 2021-05-30 [facility] 14:28:00 [facility] COMPREHENSIVE METABOLIC 2021-05-23 [facility] PANEL 14:42:00 [facility] COMPLETE BLOOD COUNT W/ 2021-05-23 [facility] DIFFERENTIAL 14:42:00 [facility] MAGNESIUM LEVEL 2021-05-23 [facility] 14:42:00 [facility] PHOSPHORUS LEVEL 2021-05-23 [facility] ex 14:42:00 [facility] GLUCOSE LEVEL 2021-05-23 [facility] 14:42:00 [facility] BLOOD UREA NITROGEN 2021-05-23 [facility] 14:42:00 [facility] ELECTROLYTE PANEL 2021-05-23 [facility] 14:42:00 [facility] SERUM CREATININE 2021-05-23 [facility] exas 14:42:00 [facility] .GLOMERULAR FILTRATION 2021-05-23 [facility] RATE 14:42:00 [facility] CALCIUM LEVEL TOTAL 2021-05-23 [facility] 14:42:00 [facility] ALBUMIN LEVEL 2021-05-23 [facility] 14:42:00 [facility] ALKALINE PHOSPHATASE 2021-05-23 [facility] 14:42:00 [facility] ALANINE AMINOTRANSFERASE 2021-05-23 [facility] 14:42:00 [facility] ASPARTATE AMINOTRANSFERASE 2021-05-23 [facility] 14:42:00 [facility] TOTAL PROTEIN 2021-05-23 [facility] 14:42:00 [facility] FRACTIONATED BILIRUBIN 2021-05-23 [facility] 14:42:00 [facility] Results CBC 2021-05-23 [facility] 14:42:00 [facility] MANUAL DIFFERENTIAL 2021-05-23 [facility] [place] 14:42:00 [facility] FL MODIFIED BARIUM SWALLOW 2021-05-18 [facility] W SPEECH 15:57:01 [facility] CT HEAD/NECK SIMULATION WO 2021-05-11 [facility] CONTRAST (RO) 16:46:32 [facility] COVID-19 (SARS-COV-2) 2021-05-11 [facility] PCR ASYMPTOMATIC 15:05:00 [facility] ORTHOPANTOGRAM 2021-05-06 [facility] 16:53:13 Vadim [facility] ECONOMICS ANALYST 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 2021-05-06 [facility] 15:58:10 [facility] ELECTROLYTE PANEL 2021-05-04 [facility] 17:10:00 [facility] BLOOD UREA NITROGEN 2021-05-04 [facility] 17:10:00 [facility] SERUM CREATININE 2021-05-04 [facility] 17:10:00 [facility] GLUCOSE, RANDOM 2021-05-04 [facility] 17:10:00 [facility] MAGNESIUM LEVEL 2021-05-04 [facility] 17:10:00 [facility] PHOSPHORUS LEVEL 2021-05-04 [facility] 17:10:00 [facility] CALCIUM LEVEL TOTAL 2021-05-04 [facility] [place] 17:10:00 [facility] HEPATIC FUNCTION PANEL 2021-05-04 [facility] 17:10:00 [facility] VITAMIN D 25 HYDROXY LEVEL 2021-05-04 [facility] 17:10:00 [facility] SERUM CREATININE 2021-05-04 [facility] 17:10:00 [facility] .GLOMERULAR FILTRATION 2021-05-04 [facility] RATE 17:10:00 [facility] ALBUMIN LEVEL 2021-05-04 [facility] 17:10:00 [facility] ALKALINE PHOSPHATASE 2021-05-04 [facility] 17:10:00 [facility] ALANINE AMINOTRANSFERASE 2021-05-04 [facility] 17:10:00 [facility] ASPARTATE AMINOTRANSFERASE 2021-05-04 [facility] 17:10:00 [facility] TOTAL PROTEIN 2021-05-04 [facility] 17:10:00 [facility] FRACTIONATED BILIRUBIN 2021-05-04 [facility] 17:10:00 [facility] COVID-19 (SARS-COV-2) 2021-05-04 Ene Polk [facility] PCR ASYMPTOMATIC 16:23:00 [facility] COMPLETE BLOOD COUNT W/ 2021-05-03 Eunice [facility] DIFFERENTIAL 14:26:00 [facility] COMPREHENSIVE METABOLIC 2021-05-03 [facility] 14:26:00 [facility] THYROID STIMULATING 2021-05-03 Eunice [facility] HORMONE 14:26:00 [facility] HEPATITIS C VIRUS ANTIBODY 2021-05-03 [facility] 14:26:00 [facility] FREE THYROXINE 2021-05-03 [facility] 14:26:00 [facility] Results CBC 2021-05-03 [facility] xa 14:26:00 [facility] MANUAL DIFFERENTIAL 2021-05-[facility] 14:26:00 [facility] GLUCOSE LEVEL 2021-05-03 [facility] 14:26:00 [facility] BLOOD UREA NITROGEN 2021-05-03 [facility] 14:26:00 [facility] ELECTROLYTE PANEL 2021-05-03 [facility] [place] 14:26:00 [facility] SERUM CREATININE 2021-05-03 [facility] 14:26:00 [facility] .GLOMERULAR FILTRATION 2021-05-03 [facility] RATE 14:26:00 [facility] CALCIUM LEVEL TOTAL 2021-05-03 [facility] 14:26:00 [facility] ALBUMIN LEVEL 2021-05-03 [facility] 14:26:00 [facility] ALKALINE PHOSPHATASE 2021-05-03 [facility] [place] 14:26:00 [facility] ALANINE AMINOTRANSFERASE 2021-05-03 [facility] 14:26:00 [facility] ASPARTATE AMINOTRANSFERASE 2021-05-03 [facility] 14:26:00 [facility] TOTAL PROTEIN 2021-05-03 [facility] xa 14:26:00 [facility] FRACTIONATED BILIRUBIN 2021-05-03 [facility] 14:26:00 [facility] TMP HCVAB INTERP 2021-05-03 [facility] 14:26:00 [facility] CT SOFT TISSUE NECK W 2021-05-03 [facility] [place] CONTRAST 13:27:[address] [facility] [address] CHEST W CONTRAST 2021-05-03 [facility] 13:27:54 [facility] POC CREATININE 2021-05-03 [facility] 12:56:00 [facility] OSI PET CT SKULL TO MID 2021-04-07 Olivia Coleman [facility] THIGH 18:24:00 [facility] PATHOLOGY OUTSIDE 2021-03-28 Korina Pastor [facility] INTERPRETATION 00:00:00 [facility] OSI CHEST 2021-03-24 Olivia Coleman [facility] xas 18:24:00 [facility] Plan of Care Planned Activity Planned Date Details Comments Source Future Scheduled 2022-01-13 COVID-19 Vaccination [facility] Test 06:36:37 (3 - Moderna risk MD Jeanmarie patel Cancer series) [code = Center COVID-19 Vaccination (3 - Moderna risk series)] Encounters Start End Encounter Admission Attending Care Care Encounter Source Date/Time Date/Time Type Type Clinicians Facility Department ID 2021-09-21 Outpatient SYSTEM, LOLITA MCHUGH [id number] 11:18:24 PROVIDER Chucky patel 2021-09-20 Outpatient Bullard, Na STLMLC STLMLC [id number] 2 Common 09:33:02 [facility] 2021-09-19 Outpatient Bullard, Na STLMLC STLMLC [id number] 2 Common 16:18:04 [facility] 2021-07-09 Inpatient EL ETCHEGARAY- MDA LOLITA [id number] 15:00:36 Jeanmarie ASKEW 2021-06-29 Outpatient Bullard, Na STLMLC STLMLC [id number] 2 Common 11:54:04 [id number] [facility] 2021-06-29 Outpatient Bullard, Na STLMLC STLMLC [id number] 2 Common 11:30:38 [id number] [facility] 2021-06-29 Outpatient Bullard, Na STLMLC STLMLC [id number] 2 Common 11:28:27 [id number] [facility] 2021-06-29 Outpatient Bullard, Na STLMLC STLMLC [id number] 2 Common 11:24:06 [id number] [facility] 2021-04-13 Outpatient SYSTEM, LOLITA MCHUGH [id number] 19:44:15 PROVIDER Chucky o amanda 2022-01-122022-01-12 Outpatient SEYOMUR [facility] MDA [id number] 12:03:19 14:13:47 KOSTA Chucky o n 2022-01-12 2022-01-12 Follow-Up Nahumsheila 1.2.840.1 [id number] [facility] [place] [facility] 11:30:00 14:13:47 Kosta 45630.1.1 ity of 3.412.2.7 [place] .3.547713 .8 [facility] 2022-01-12 2022-01-12 [facility] Slava Ariza 1.2.840.1 [id number] [facility] [place] [facility] 12:58:06 12:58:06 Encounter Mj Azevedo [id number] ity of 3.412.2.7 [place] .3.898939 .8 [facility] 2022-01-12 2022-01-12 Outpatient SLAVA LAU [facility] MDA [id number] 12:58:06 12:58:06 [facility] 2022-01-12 2022-01-12 [facility] 1.2.840.1 [id number] [facility] [place] [facility] 10:16:05 10:16:05 Encounter Sarah Rudd 21860.1.1 ity of 3.412.2.7 [place] .3.396464 .8 [facility] 2022-01-12 2022-01-12 Outpatient SLAVA LAU [facility] MDA [id number] 10:16:05 10:16:05 Chucky o amanda 2022-01-12 2022-01-12 [facility] 1.2.840.1 [id number] [facility] [place] [facility] 09:28:29 09:28:29 Encounter Kosta 30068.1.1 it y of 3.412.2.7 [place] .3.769214 .8 [facility] 2022-01-12 2022-01-12 Outpatient SEYMOUR [facility] MDA [id number] 09:28:29 09:28:29 KOSTA Chucky o n 2022-01-12 2022-01-12 Orders Arreguin, 1.2.840.1 [id number] Univers 00:00:00 00:00:00 Only Richard 36882.1.1 ity of Van 3.412.2.7 [place] .3.981668 MD Jett [facility] 2022-01-12 2022-01-12 Telephone Munoz, 1.2.840.1 [id number] Univers 00:00:00 00:00:00 Davis Cole 72929.1.1 ity of 3.412.2.7 [place] .3.373613 MD Jackson8 [facility] 2022-01-12 2022-01-12 Travel 1.2.840.1 1.2.035.078 [id number] Univers 00:00:00 00:00:00 62083.1.1 350.1.13.41 ity of 3.412.2.7 [place]3.698 [place] .3.884489 084.8 MD Jett [facility] 2022-01-05 2022-01-05 Eliane Polk 1.2.840.1 [id number] Univers 00:00:00 00:00:00 Ene Singh 96130.1.1 ity of 3.412.2.7 [place] .3.844882 MD Jett [facility] 2021-12-30 2021-12-30 Hospital Ene Polk 1.2.840.1 [id number] [facility] [place] [facility] 08:57:19 23:59:00 Encounter Sara Harris 01820.1.1 ity of 3.412.2.7 [place] .3.674345 MD Jett [facility] 2021-12-30 2021-12-30 Outpatient DOROTHY POLK MDA [facility] [id number] 08:57:19 23:59:00 ENE patel 2021-12-30 2021-12-30 Sumit Hollingsworth 1.2.840.1 [id number] Univers 00:00:00 00:00:00 Management Nevin Singh 19559.1.1 ity of 3.412.2.7 [place] .3.990256 MD Jackson8 [facility] 2021-12-30 2021-12-30 Travel 1.2.840.1 1.2.769.008 [id number] Univers 00:00:00 00:00:00 33586.1.1 350.1.13.41 ity of 3.412.2.7 [place]3.698 [place] .3.656833 084.8 MD Jackson8 [facility] 2021-12-29 2021-12-29 Case Darrick, 1.2.840.1 [id number] Univers 00:00:00 00:00:00 Management Nevin Singh 48126.1.1 ity of 3.412.2.7 [place] .3.293118 MD Jackson8 [facility] 2021-12-28 2021-12-28 [facility], 1.2.840.1 [id number] [facility] [place] [facility] 17:46:51 23:59:00 Encounter Kosta 06962.1.1 it y of 3.412.2.7 [place] .3.704475 MD Jackson8 [facility] 2021-12-28 2021-12-28 [facility] LOLITA AHUJA MDA [id number] 17:46:51 23:59:00 KOSTA patel 2021-12-28 2021-12-28 [facility] 1.2.840.1 [id number] [facility] [place] [facility] 12:26:58 17:45:00 Bird Lemus 28925.1.1 ity of 3.412.2.7 [place] .3.810656 MD Jackson8 [facility] 2021-12-28 2021-12-28 [facility] LOLITA AHUJA MDA [id number] 12:26:58 17:45:00 KOSTA patel 2021-12-28 2021-12-28 [facility] LOLITA [id number] 15:17:34 15:17:34 KOSTA Scanloners nic patel 2021-12-28 2021-12-28 Case Darrick, 1.2.840.1 [id number] Univers 00:00:00 00:00:00 Management Nevin Singh 02760.1.1 ity of 3.412.2.7 [place] .3.726783 MD Jett [facility] 2021-12-28 2021-12-28 Case Darrick, 1.2.840.1 [id number] Univers 00:00:00 00:00:00 Management Nevin Singh 02697.1.1 ity of 3.412.2.7 [place] .3.659379 MD Jett [facility] 2021-12-28 2021-12-28 Travel 1.2.840.1 1.2.983.507 [id number] Univers 00:00:00 00:00:00 70269.1.1 350.1.13.41 ity of 3.412.2.7 [place]7.3.698 [place] .3.956467 084.8 MD Jett [facility] 2021-12-27 2021-12-27 Jesse Ahuja 1.2.840.1 [id number] Univers 00:00:00 00:00:00 Only Kosta 42841.1.1 ity of 3.412.2.7 [place] .3.693802 MD Jett [facility] 2021-12-27 2021-12-27 Jesse Ahuja 1.2.840.1 [id number] Univers 00:00:00 00:00:00 Only Kosta 67443.1.1 ity of 3.412.2.7 [place] .3.350143 MD Jett [facility] 2021-12-27 2021-12-27 Documentat Leobardo Edwards 1.2.840.1 [id number] Univers 00:00:00 00:00:00 ion Vicente T 51430.1.1 ity of 3.412.2.7 [place] .3.368283 MD Jett [facility] 2021-12-27 2021-12-27 Case Darrick, 1.2.840.1 [id number] Univers 00:00:00 00:00:00 Management Nevin Singh 63644.1.1 ity of 3.412.2.7 [place] .3.455688 .8 [facility] 2021-12-26 2021-12-26 Sumit Hollingsworth, 1.2.840.1 [id number] Univers 00:00:00 00:00:00 Management Nevin Singh 60214.1.1 ity of 3.412.2.7 [place] .3.769379 .8 [facility] 2021-12-26 2021-12-26 Orders Seymour 1.2.840.1 [id number] Univers 00:00:00 00:00:00 Only Kosta 51727.1.1 ity of 3.412.2.7 [place] .3.530281 MD Jackson8 [facility] 2021-12-26 2021-12-26 Orders Seymour, 1.2.840.1 [id number] Univers 00:00:00 00:00:00 Only Kosta 93809.1.1 ity of 3.412.2.7 [place] .3.637067 MD Jackson8 [facility] 2021-12-22 2021-12-22 Jose Luis Melendez 1.2.840.1 [id number] Univers 13:00:00 14:19:52 Kosta Ahuja 98640.1.1 ity of 3.412.2.7 [place] .3.722367 MD Jackson8 [facility] 2021-12-22 2021-12-22 Outpatient DOROTHY PAULINO MDA MDA [id number] 12:37:30 14:19:52 JOSE LUIS patel 2021-12-22 2021-12-22 Travel 1.2.840.1 [id number] [id number] Univers 00:00:00 00:00:00 08907.1.1 350.1.13.41 ity of 3.412.2.7 [place]3.698 [place]3.050057 084.8 MD Jackson8 [facility] 2021-12-19 2021-12-19 Orders Lora, 1.2.840.1 [id number] Univers 00:00:00 00:00:00 Only Jose Luis S 58209.1.1 ity of 3.412.2.7 [place] .3.410264 MD Jett [facility] 2021-12-16 2021-12-16 [facility], 1.2.840.1 [id number] [facility] [place] [facility] 07:28:07 23:59:00 Encounter Ene Singh 27327.1.1 it y of 3.412.2.7 [place] .3.723066 MD Jett [facility] 2021-12-16 2021-12-16 Outpatient DOROTHY POLK [facility] [id number] 07:28:07 23:59:00 ENE patel 2021-12-16 2021-12-16 Ancillary Jam, 1.2.840.1 [id number] [facility] [place] [facility] 06:05:00 07:30:00 Procedure Ene Singh 77027.1.1 it y of 3.412.2.7 [place] .3.498283 MD Jett [facility] 2021-12-16 2021-12-16 Outpatient DOROTHY POLK [facility] [id number] 06:04:35 06:04:35 ENE patel 2021-12-16 2021-12-16 Orders Naa, 1.2.840.1 [id number] Univers 00:00:00 00:00:00 Only Clement Rivera 65417.1.1 it y of 3.412.2.7 [place] .3.651406 MD Jett [facility] 2021-12-16 2021-12-16 Travel 1.2.840.1 1.2.664.613 [id number] Univers 00:00:00 00:00:00 05333.1.1 350.1.13.41 ity of 3.412.2.7 [place]7.3.698 [place] .3.747900 084.8 .8 [facility] 2021-12-12 2021-12-12 Eliane Adame 1.2.840.1 [id number] Univers 00:00:00 00:00:00 Cintia 04013.1.1 ity of 3.412.2.7 [place] .3.255337 .8 [facility] 2021-12-09 2021-12-09 [facility] Ene Polk 1.2.840.1 [id number] [facility] [place] [facility] 13:42:08 23:59:00 Kita Ayon 06001.1.1 ity of 3.412.2.7 [place] .3.508503 MD Jackson8 [facility] 2021-12-09 2021-12-09 Outpatient DOROTHY POLK [facility] [id number] 13:42:08 23:59:00 ENE patel 2021-12-09 2021-12-09 Clinical Jitendra Prieto 1.2.840.1 1 [id number] [facility] [place] [facility] 09:30:00 10:00:00 Support Douglas Syeda L 31227.1.1 ity of 3.412.2.7 [place] .3.661463 MD Jackson8 [facility] 2021-12-09 2021-12-09 Outpatient [facility] MDA [id number] 09:33:38 09:33:38 Evelio Patel 2021-12-09 2021-12-09 Outpatient [facility] MDA [id number] 08:49:28 08:49:28 Evelio Patel 2021-12-09 2021-12-09 [facility] Candace 1.2.840.1 [id number] [facility] [place] [facility] 07:45:00 08:00:00 Jitendra Sutherland 98846.1.1 ity of 3.412.2.7 [place] .3.853351 MD Jackson8 [facility] 2021-12-09 2021-12-09 Orders Veronica, 1.2.840.1 [id number] Univers 00:00:00 00:00:00 Only Liliana 07846.1.1 ity of 3.412.2.7 [place] .3.122153 MD Jackson8 [facility] 2021-12-09 2021-12-09 Travel 1.2.840.1 1.2.287.793 1033 [id number] Univers 00:00:00 00:00:00 27013.1.1 350.1.13.41 ity of 3.412.2.7 [place].3.698 [place] .3.5246[place] 084.8 MD Jett [facility] 2021-11-24 2021-11-24 Outpatient SLAVA LAU [facility] [id number] [place] 16:07:20 16:07:20 [facility] 2021-11-21 2021-11-21 Eliane Dawson, 1.2.840.1 [id number] Univers 00:00:00 00:00:00 Alexandra 70660.1.1 ity of 3.412.2.7 [place] .3.496949 MD Jett [facility] 2021-11-17 2021-11-17 Emergency Hilario Pardo B 1.2.840.1 [id number] Univers 13:52:00 22:56:00 02893.1.1 ity of 3.412.2.7 [place] .3.919825 MD Jett [facility] 2021-11-17 2021-11-17 Jesse Lam, 1.2.840.1 [id number] Univers 00:00:00 00:00:00 Only Shilo 99372.1.1 it y of 3.412.2.7 [place] .3.614259 MD Jett [facility] 2021-11-17 2021-11-17 Travel 1.2.840.1 1.2.753.423 4219 [id number] Univers 00:00:00 00:00:00 04559.1.1 350.1.13.41 ity of 3.412.2.7 [place]7.3.698 [place] .3.089208 084.8 MD Jett [facility] 2021-11-17 2021-11-17 Jazzmine Blair 1.2.840.1 [id number] 1 [id number] Univers 00:00:00 00:00:00 Samantha 09615.1.1 ity of 3.412.2.7 [place] .3.171076 MD Jett [facility] 2021-11-14 2021-11-14 ambulatory STLMLC STLMLC [id number] Common 00:00:00 00:00:00 [facility] 2021-11-14 2021-11-14 Orders Jam, 1.2.840.1 [id number] Univers 00:00:00 00:00:00 Only Ene Singh 81338.1.1 ity of 3.412.2.7 [place] .3.136640 MD Jett [facility] 2021-11-13 2021-11-13 Orders Gaurav 1.2.840.1 [id number] Univers 00:00:00 00:00:00 Only Aaron Richmond 66869.1.1 ity of 3.412.2.7 [place] .3.245738 MD Jett [facility] 2021-11-08 2021-11-12 [facility] Jam, 1.2.840.1 [id number] Univers 13:14:00 15:50:00 Encounter Ene Singh 18910.1.1 it y of 3.412.2.7 [place] .3.949447 MD Jett [facility] 2021-11-12 2021-11-12 Orders [place], 1.2.840.1 [id number] Univers 00:00:00 00:00:00 Only Shailesh 39724.1.1 ity of 3.412.2.7 [place] .3.833728 MD Jett [facility] 2021-11-12 2021-11-12 Nurse Huan, 1.2.840.1 [id number] Univers 00:00:00 00:00:00 Triage Zafar 83034.1.1 ity of 3.412.2.7 [place] .3.123335 MD Jett [facility] 2021-11-08 2021-11-08 Surgery Jam, 1.2.840.1 [id number] Univers 16:25:00 19:00:00 Ene Singh 17603.1.1 ity of 3.412.2.7 [place] .3.617811 MD Jackson8 [facility] 2021-11-08 2021-11-08 Anesthesia Nliam Hollingsworth 1.2.840. 1 [id number] Univers 15:00:00 17:06:00 Event Eunice Chevy 68139.1.1 ity of 3.412.2.7 [place] .3.318318 MD Jett [facility] 2021-11-08 2021-11-08 Hospital Jam, 1.2.840.1 [id number] Univers 09:22:56 13:13:00 Encounter Ene Singh 30660.1.1 it y of 3.412.2.7 [place] .3.446136 MD Jett [facility] 2021-11-08 2021-11-08 Prep for Jam, 1.2.840.1 [id number] Univers 00:00:00 00:00:00 Surgery Ene Singh 73607.1.1 ity of 3.412.2.7 [place] .3.689132 MD Jett [facility] 2021-11-08 2021-11-08 Travel 1.2.840.1 1.2.138.840 9375 [id number] Univers 00:00:00 00:00:00 94204.1.1 350.1.13.41 ity of 3.412.2.7 [place]7.3.698 [place] .3.901878 084.8 MD Jett [facility] 2021-11-07 2021-11-07 [facility] 1.2.840.1 [id number] 1 [id number] Univers 13:30:00 23:59:00 Encounter Jitendra patel 89937.1.1 ity of 3.412.2.7 [place] .3.123388 MD Jett [facility] 2021-11-07 2021-11-07 Office Cintia Adame 1.2.840.1 [id number] Univers 13:00:00 16:26:28 Visit Veronica Liliana 79657.1.1 ity of 3.412.2.7 [place] .3.622507 MD Jackson8 [facility] 2021-11-07 2021-11-07 [facility] Adame, 1.2.840.1 [id number] Univers 12:32:16 13:29:00 Encounter Cintia 63316.1.1 it y of 3.412.2.7 [place] .3.635556 MD Jett [facility] 2021-11-07 2021-11-07 [facility] EuniceAlexandra 1.2.840.1 [id number] Univers 09:51:25 12:31:00 Encounter Rebecca Brown 38216.1.1 ity of 3.412.2.7 [place] .3.609394 MD Jett [facility] 2021-11-07 2021-11-07 Travel 1.2.840.1 1.2.530.682 3019 [id number] Univers 00:00:00 00:00:00 60374.1.1 350.1.13.41 ity of 3.412.2.7 2.2[place]7.3.698 [place] .3.955830 084.8 MD Jett [facility] 2021-10-28 2021-10-28 Prep for Ad 1.2.840.1 [id number] Univers 00:00:00 00:00:00 Surgery Oralia Jamil 18706.1.1 i ty of 3.412.2.7 [place] .3.842365 MD Maliha Murry n [facility] [place] 2021-10-14 2021-10-27 [facility] Cody Dupont 1.2.840.1 [id number] Univers 23:44:00 18:21:00 Encounter Ramírez Sofya C 36672.1.1 ity of Sharlene Knight Maryse 3.412.2.7 [place] Cintia Adame .3.898174 Amber Rice .8 [facility] 2021-10-25 2021-10-25 Ancillary Vivian, 1.2.840.1 [id number] [id number] Univers 20:00:00 20:05:00 Procedure Amber 07815.1.1 it y of 3.412.2.7 [place] .3.659321 MD Jackson8 [facility] 2021-10-25 2021-10-25 Orders Mcghee, 1.2.840.1 [id number] Univers 00:00:00 00:00:00 Only Shirley Gallego 90680.1.1 ity of 3.412.2.7 [place] .3.242738 MD Jackson8 [facility] 2021-10-19 2021-10-19 Anesthesia Krish, 1.2.840.1 [id number] Univers 23:59:59 23:59:59 Event Link 17394.1.1 ity of 3.412.2.7 [place] .3.627129 MD Jackson8 [facility] 2021-10-18 2021-10-18 Surgery Yong Palma 1.2.840.1 [id number] [id number] Univers 11:32:00 12:32:00 48630.1.1 ity of 3.412.2.7 [place] .3.039524 MD Jackson8 [facility] 2021-10-18 2021-10-18 Anesthesia Marcello, 1.2.840.1 [id number] [id number] Univers 10:57:00 12:21:00 Event Padmini 00141.1.1 ity of 3.412.2.7 [place] .3.534131 MD Jackson8 [facility] 2021-10-18 2021-10-18 Orders Priscilla, 1.2.840.1 [id number] Univers 00:00:00 00:00:00 Only Eddie Witt 01240.1.1 ity of 3.412.2.7 [place] .3.681122 MD Jett [facility] 2021-10-15 2021-10-15 Prep for Elizabeth Hammer 1.2.840.1 [id number] 1 [id number] Univers 00:00:00 00:00:00 Surgery 68454.1.1 ity of 3.412.2.7 [place] .3.301587 MD Jackson8 [facility] 2021-10-15 2021-10-15 Travel 1.2.840.1 1.2.822.851 [id number] [id number] Univers 00:00:00 00:00:00 41107.1.1 350.1.13.41 ity of 3.412.2.7 [place]7.3.698 [place] .3.806939 084.8 MD Jackson8 [facility] 2021-10-14 2021-10-14 Travel 1.2.840.1 1.2.457.725 3530 [id number] Univers 00:00:00 00:00:00 73987.1.1 350.1.13.41 ity of 3.412.2.7 2.[place].7.3.698 [place] .3.840798 084.8 MD Jackson8 [facility] 2021-10-11 2021-10-11 [facility] Jam Ene Samantha 1.2.840.1 [id number] Univers 14:30:00 23:59:00 Encounter Kita Campos 24543.1.1 ity of 3.412.2.7 [place] .3.132238 MD Jett [facility] 2021-10-07 2021-10-07 ambulatory STLMLC STLMLC [id number] Common 00:00:00 00:00:00 [facility] 2021-10-06 2021-10-06 ambulatory STLMLC STLMLC [id number] Common 00:00:00 00:00:00 [facility] 2021-10-04 2021-10-04 ambulatory STLMLC STLMLC [id number] Common 00:00:00 00:00:00 [facility] 2021-10-03 2021-10-03 Orders Eunice, 1.2.840.1 [id number] Univers 00:00:00 00:00:00 Only Alexandra 58327.1.1 ity of 3.412.2.7 [place] .3.927438 MD Jackson8 [facility] 2021-10-03 2021-10-03 Ishaan Castro 1.2.840.1 [id number] Univers 00:00:00 00:00:00 Wayne Singh 38751.1.1 it y of 3.412.2.7 [place] .3.871173 MD Jackson8 [facility] 2021-09-30 2021-09-30 ambulatory STLMLC STLMLC [id number] Common 00:00:00 00:00:00 [facility] 2021-09-29 2021-09-29 ambulatory STLMLC STLMLC [id number] Common 00:00:00 00:00:00 [facility] 2021-09-29 2021-09-29 ambulatory STLMLC STLMLC [id number] Common 00:00:00 00:00:00 [facility] 2021-09-28 2021-09-28 Outpatient SLAVA LAU MDA, MDA [id number] 15:18:06 15:18:15 Chucky patel 2021-09-28 2021-09-28 Slava Witt 1.2.840.1 [id number] [facility] [place] [facility] 14:30:00 15:18:15 Link Schaffer 32740.1.1 ity of 3.412.2.7 [place] .3.875432 MD Jackson8 [facility] 2021-09-26 2021-09-26 Documentat Fermin 1.2.840.1 [id number] 1 [id number] Univers 00:00:00 00:00:00 ion Adele 99699.1.1 ity of 3.412.2.7 [place] .3.512600 MD Jackson[facility] 2021-09-23 2021-09-23 Outpatient JAM [facility] [id number] [place] 11:00:00 23:59:00 ENE patel 2021-09-23 2021-09-23 [facility] Jam, 1.2.840.1 [id number] [facility] [place] [facility] 11:00:00 23:59:00 Encounter Ene Singh 66555.1.1 it y of 3.412.2.7 [place] .3.033049 MD Jackson8 [facility] 2021-09-23 2021-09-23 Outpatient JAM [facility] [id number] ME 10:00:00 10:59:00 ENE patel 2021-09-23 2021-09-23 [facility] Ene Polk 1.2.840.1 [id number] [facility] [place] [facility] 10:00:00 10:59:00 Encounter Roberta Ortega 52712.1.1 ity of 3.412.2.7 [place] .3.652111 MD Jackson8 [facility] 2021-09-23 2021-09-23 Travel 1.2.840.1 1.2.754.256 5593 [id number] Univers 00:00:00 00:00:00 08528.1.1 350.1.13.41 ity of 3.412.2.7 2.2.7.3.698 [place] .3.678653 084.8 .[address] [facility] [address] 2021-09-22 2021-09-22 ambulatory STLMLC STLMLC [id number] Common 00:00:00 00:00:00 [facility] 2021-09-22 2021-09-22 Orders Ethel, 1.2.840.1 [id number] Univers 00:00:00 00:00:00 Only Camilla A 80602.1.1 ity of 3.412.2.7 [place] .3.540351 MD Jett [facility] 2021-09-21 2021-09-21 Outpatient SLAVA LAU [facility] MDA [id number] 12:58:44 23:59:00 [facility] 2021-09-21 2021-09-21 [facility] Slava Ariza 1.2.840.1 [id number] 10 [id number] [facility] [place] [facility] 12:58:44 23:59:00 Merlin Romero 26435.1.1 it y of 3.412.2.7 [place] .3.280525 MD Jackson8 [facility] 2021-09-21 2021-09-21 Outpatient NKECHI ROGERS MDA MDA [id number] 14:34:29 16:07:25 [facility] 2021-09-21 2021-09-21 Office Nkechi Raya 1.2.840.1 [id number] [facility] [place] [facility] 14:00:00 16:07:25 Visit E 13830.1.1 ity of 3.412.2.7 [place] .3.043628 MD Jett [facility] 2021-09-21 2021-09-21 Documentat Ethel, 1.2.840.1 [id number] 1 [id number] Univers 00:00:00 00:00:00 ion Camilla Kinney 40010.1.1 ity of 3.412.2.7 [place] .3.667441 MD Jett [facility] 2021-09-21 2021-09-21 Travel 1.2.840.1 1.2.350.030 6147 [id number] [facility] [place] [facility] 00:00:00 00:00:00 88069.1.1 350.1.13.41 ity of 3.412.2.7 2.2.7.3.698 [place] .3.178921 084.8 MD Jett [facility] 2021-09-20 2021-09-20 Outpatient SLAVA LAU [facility] MDA [id number] 13:05:31 23:59:00 [facility] [place] [facility] 2021-09-20 2021-09-20 [facility] Slava Ariza 1.2.840.1 [id number] Univers 13:05:31 23:59:00 Encounter Rachid Granado 29242.1.1 ity of 3.412.2.7 [place] .3.846494 .8 [facility] 2021-09-20 2021-09-20 Outpatient DOROTHY DAWSON [facility] [id number] 12:55:00 13:04:00 ALEXANDRA patel 2021-09-20 2021-09-20 [facility], 1.2.840.1 [id number] [facility] [place] [facility] 12:55:00 13:04:00 Encounter Alexandra 56883.1.1 it y of 3.412.2.7 [place] .3.300710 .8 [facility] 2021-09-20 2021-09-20 Outpatient DOROTHY ANNITASLAVA [facility] [id number] 11:00:00 12:01:00 Chucky patel 2021-09-20 2021-09-20 [facility] Annita Slava Nick 1.2.840.1 [id number] Univers 11:00:00 12:01:00 Encounter Candy Churchill 44944.1.1 ity of 3.412.2.7 [place] .3.697087 .8 [facility] 2021-09-20 2021-09-20 Outpatient DOROTHY DAWSON [facility] [id number] 10:45:00 10:59:00 ALEXANDRA patel 2021-09-20 2021-09-20 [facility], 1.2.840.1 [id number] Univers 10:45:00 10:59:00 Encounter Alexandra 68747.1.1 it y of 3.412.2.7 [place] .3.252974 .8 [facility] [place] 2021-09-20 2021-09-20 [facility], 1.2.840.1 [id number] Univers 00:00:00 00:00:00 Only Alexandra 29861.1.1 ity of 3.412.2.7 [place] .3.637493 MD Jett [facility] 2021-09-20 2021-09-20 Telephone Gloria, 1.2.840.1 [id number] Univers 00:00:00 00:00:00 Wayne Singh 70818.1.1 it y of 3.412.2.7 [place] .3.371661 MD Jett [facility] 2021-09-20 2021-09-20 Travel 1.2.840.1 1.2.160.800 6892 [id number] Univers 00:00:00 00:00:00 93098.1.1 350.1.13.41 ity of 3.412.2.7 2.[place]7.3.698 [place] .3.161451 084.8 MD Jett [facility] 2021-09-19 2021-09-19 ambulatory STLMLC STLMLC [id number] Common 00:00:00 00:00:00 [facility] 2021-09-16 2021-09-16 Orders Jose, 1.2.840.1 [id number] Univers 00:00:00 00:00:00 Only Caprice 78528.1.1 ity of [place] 3.412.2.7 [place] .3.180255 MD Jett [facility] 2021-09-15 2021-09-15 Orders Eunice, 1.2.840.1 [id number] Univers 00:00:00 00:00:00 Only Alexandra 33052.1.1 ity of 3.412.2.7 [place] .3.507512 MD Jett [facility] 2021-09-15 2021-09-15 Telephone Gloria, 1.2.840.1 [id number] Univers 00:00:00 00:00:00 Wayne Singh 57913.1.1 it y of 3.412.2.7 [place] .3.732021 MD Jett [facility] 2021-09-08 2021-09-08 Documentat Clemons, 1.2.840.1 [id number] Univers 00:00:00 00:00:00 ion Huan H 36034.1.1 ity of 3.412.2.7 [place] .3.816460 MD Jackson8 [facility] 2021-09-07 2021-09-07 Slava Witt Nick 1.2.840.1 101 [id number] [facility] [place] [facility] 14:30:00 15:00:00 Camilla Davenport 15621.1.1 ity of 3.412.2.7 [place] .3.724742 MD Jackson8 [facility] 2021-09-07 2021-09-07 Outpatient DOROTHY ANNITACANDYLuis MCHUGH MDA [id number] 14:30:45 14:30:45 Chucky patel 2021-09-07 2021-09-07 Outpatient DOROTHY ANNITACANDYLuis MCHUGH MDA [id number] 12:16:23 12:16:23 [facility] 2021-09-07 2021-09-07 Documentat Andres, 1.2.840.1 [id number] Univers 00:00:00 00:00:00 ion Kita H 55586.1.1 ity of 3.412.2.7 [place] .3.083615 MD Jackson8 [facility] 2021-09-07 2021-09-07 Documentat Cathleen, 1.2.840.1 [id number] Univers 00:00:00 00:00:00 ion Carsyn L 15416.1.1 ity of 3.412.2.7 [place] .3.321671 MD Jett [facility] 2021-09-07 2021-09-07 Orders Erasto, 1.2.840.1 [id number] Univers 00:00:00 00:00:00 Only Anca H 79073.1.1 it y of 3.412.2.7 [place] .3.287827 MD Jett [facility] 2021-09-06 2021-09-06 Outpatient DOROTHY DAWSON MDA MDA [id number] 14:15:00 23:59:00 ALEXANDRA patel 2021-09-06 2021-09-06 [facility] Alexandra Dawson 1.2.840.1 [id number] Univers 14:15:00 23:59:00 Encounter Crista Connolly 08405.1.1 ity of 3.412.2.7 [place] .3.122183 MD Jett [facility] 2021-09-06 2021-09-06 ambulatory STLMLC STLMLC [id number] Common 00:00:00 00:00:00 [facility] 2021-09-06 2021-09-06 Documentat Cathleen, 1.2.840.1 [id number] Univers 00:00:00 00:00:00 ion Crista Cole 85006.1.1 ity of 3.412.2.7 [place] .3.895841 MD Jett [facility] 2021-09-06 2021-09-06 Documentat Cathleen 1.2.840.1 [id number] Univers 00:00:00 00:00:00 ion Crista Cole 79774.1.1 ity of 3.412.2.7 [place] .3.659044 MD Jett [facility] 2021-09-05 2021-09-05 Outpatient SLAVA LAU MDA, MDA [id number] 10:24:00 10:24:00 [facility] 2021-09-05 2021-09-05 Slava Witt 1.2.840.1 [id number] Univers 09:00:00 09:30:00 Camilla Davenport 25513.1.1 ity of 3.412.2.7 [place] .3.917836 MD Jett [facility] 2021-09-05 2021-09-05 Telephone Ethel 1.2.840.1 [id number] Univers 00:00:00 00:00:00 Camilla Kinney 78943.1.1 ity of 3.412.2.7 [place] .3.918608 MD Jackson8 [facility] 2021-09-02 2021-09-02 Telephone Aneesh Dawson2.840.1 [id number] Univers 00:00:00 00:00:00 Alexandra 59807.1.1 ity of 3.412.2.7 [place] .3.136732 .8 [facility] 2021-09-01 2021-09-01 Telephone April Wylie 1.2.840.1 [id number] Univers 00:00:00 00:00:00 Elza 15264.1.1 ity of 3.412.2.7 [place] .3.177492 .8 [facility] 2021-08-25 2021-08-31 Inpatient SIENNA [facility] [id number] [place] 17:50:00 16:18:00 [facility] 2021-08-25 2021-08-31 [facility] Hilario Pardo 1.2.840.1 [id number] 1 [id number] [facility] [place] [facility] 17:50:00 16:18:00 Encounter Alta Ferrell 18583.1.1 ity of Olegario Rain 3.412.2.7 Cintia Rubio .3.724618 Susan Go .8 [facility] 2021-08-31 2021-08-31 Inpatient SLAVA LAU [facility] [id number] 14:19:25 14:19:27 [facility] 2021-08-31 2021-08-31 Jesse Lam 1.2.840.1 [id number] Univers 00:00:00 00:00:00 Only Michael Rich 96482.1.1 ity of 3.412.2.7 [place] .3.968070 .8 [facility] 2021-08-30 2021-08-30 Jesse Nolen 1.2.840.1 [id number] Univers 00:00:00 00:00:00 Only Caprice Singh 39503.1.1 ity of 3.412.2.7 [place] .3.282243 .8 [facility] 2021-08-29 2021-08-29 Anesthesia Sara Deras 1.2.840.1 1 [id number] Univers 13:56:00 16:08:00 Event Zach Mandujano 22469.1.1 ity of 3.412.2.7 [place] .3.248112 .8 [facility] 2021-08-29 2021-08-29 Surgery Genaro, 1.2.840.1 [id number] Univers 13:35:00 15:10:00 Michael Rich 66941.1.1 ity of 3.412.2.7 [place] .3.531600 .8 [facility] 2021-08-29 2021-08-29 Inpatient SLAVA LAU MDA, MDA [id number] 10:07:53 10:07:55 Chucky patel 2021-08-26 2021-08-26 Outpatient DOROTHY TORO MDA MDA [id number] 00:20:55 00:34:46 SUSAN Chuckyreginald patel 2021-08-26 2021-08-26 Prep for Harman Elizabeth 1.2.840.1 [id number] 1 [id number] Univers 00:00:00 00:00:00 Surgery 35493.1.1 ity of 3.412.2.7 [place] .3.913566 MD Jackson8 [facility] 2021-08-25 2021-08-25 Outpatient DOROTHY PEREZ MDA MDA [id number] 12:28:34 12:35:55 LLOYD patel 2021-08-25 2021-08-25 Slava Thacker 1.2.840.1 [id number] Univers 11:00:00 11:15:00 Procedure Nick 34078.1.1 it y of 3.412.2.7 [place] .3Manuel608140 .[address] [facility] [address] 2021-08-25 2021-08-25 Outpatient SLAVA LAU MDA, MDA [id number] 10:54:44 10:54:44 Chucky patel 2021-08-25 2021-08-25 Documentat Carina, 1.2.840.1 [id number] 1 [id number] Univers 00:00:00 00:00:00 ion Sara 95863.1.1 it y of 3.412.2.7 [place] .3.231794 MD Jett [facility] 2021-08-25 2021-08-25 Ishaan Castro 1.2.840.1 [id number] Univers 00:00:00 00:00:00 Wayne Singh 64028.1.1 it y of 3.412.2.7 [place] .3.257377 MD Jtet [facility] 2021-08-25 2021-08-25 Orders Eunice 1.2.840.1 [id number] Univers 00:00:00 00:00:00 Only Alexandra 59346.1.1 ity of 3.412.2.7 [place] .3.079978 MD Jett [facility] 2021-08-25 2021-08-25 Orders Chris, 1.2.840.1 [id number] Univers 00:00:00 00:00:00 Only Lloyd Rivera 73113.1.1 i ty of 3.412.2.7 [place] .3.746503 MD Jett [facility] 2021-08-25 2021-08-25 Jesse Perez 1.2.840.1 [id number] Univers 00:00:00 00:00:00 Only Lloyd Rivera 30524.1.1 i ty of 3.412.2.7 [place] .3.782939 MD Jett [facility] 2021-08-25 2021-08-25 Travel 1.2.840.1 1.2.878.063 [id number] Univers 00:00:00 00:00:00 49549.1.1 350.1.13.41 ity of 3.412.2.7 [place]3.698 [place].985[place] 084.8 MD Jett [facility] 2021-08-23 2021-08-23 Telephone Gloria, 1.2.840.1 [id number] Univers 00:00:00 00:00:00 Wayne Singh 94794.1.1 it y of 3.412.2.7 [place] .3.966550 MD Jett [facility] 2021-08-22 2021-08-22 Outpatient DOROTHY DAWSON [facility] MDA [id number] 09:00:00 23:59:00 ALEXANDRA patel 2021-08-22 2021-08-22 Alexandra Fritz 1.2.840.1 [id number] Univers 09:00:00 23:59:00 Encounter Rebecca Brown 96498.1.1 ity of 3.412.2.7 [place] .3.745696 MD Jett [facility] 2021-08-22 2021-08-22 Orders Eunice, 1.2.840.1 [id number] Univers 00:00:00 00:00:00 Only Alexandra 64499.1.1 ity of 3.412.2.7 [place] .3.395180 MD Jett [facility] 2021-08-22 2021-08-22 Orders Erasto, 1.2.840.1 [id number] Univers 00:00:00 00:00:00 Only Anca Sullivan 51714.1.1 it y of 3.412.2.7 [place] .3.256649 MD Jett [facility] 2021-08-22 2021-08-22 Travel 1.2.840.1 1.2.893.347 [id number] Univers 00:00:00 00:00:00 77660.1.1 350.1.13.41 ity of 3.412.2.[place]3.698 [place] .3.525287 084.8 MD [facility] 2021-08-20 2021-08-20 Outpatient DOROTHY DAWSON [facility] [id number] 14:40:16 14:50:18 ALEXANDRA patel 2021-08-202021-08-20 Clinical Alexandra Dawson 1.2.840.1 [id number] Univers 11:00:00 14:50:18 Support Margo Reyes 70336.1.1 ity of 3.412.2.7 [place] .3.514552 MD Jett [facility] 2021-08-20 2021-08-20 Travel 1.2.840.1 1.2.755.524 [id number] Univers 00:00:00 00:00:00 40670.1.1 350.1.13.41 ity of 3.412.2.7 2.[place]7.3.698 [place] .3.262247 084.8 MD Jackson8 [facility] 2021-08-20 2021-08-20 Eliane Dawson 1.2.840.1 [id number] Univers 00:00:00 00:00:00 Alexandra 34979.1.1 ity of 3.412.2.7 [place] .3.510284 MD Jett [facility] 2021-08-17 2021-08-17 Outpatient SLAVA LAU [facility] [id number] 13:23:18 13:23:18 [facility] 2021-08-15 2021-08-15 Eliane Adame 1.2.840.1 [id number] Univers 00:00:00 00:00:00 Cintia 82729.1.1 ity of 3.412.2.7 [place] .3.500293 MD Jett [facility] 2021-08-14 2021-08-14 Johanne Lorenzana 1.2.840.1 [id number] Univers 00:00:00 00:00:00 Only 07241.1.1 ity of 3.412.2.7 [place] .3.588711 MD Jett [facility] 2021-08-14 2021-08-14 Telephone Gloria 1.2.840.1 [id number] Univers 00:00:00 00:00:00 Wayne Singh 24447.1.1 it y of 3.412.2.7 [place] .3.788006 MD Jackson8 [facility] 2021-08-08 2021-08-08 Documentat Kaci, 1.2.840.1 [id number] Univers 00:00:00 00:00:00 ion Huan Sullivan 70144.1.1 ity of 3.412.2.7 [place] .3.785745 MD Jackson8 [facility] 2021-08-02 2021-08-02 Slava Witt 1.2.840.1 [id number] [facility] [place] [facility] 09:00:00 09:30:00 Camilla Davenport 29967.1.1 ity of 3.412.2.7 [place] .3.095481 MD Jackson8 [facility] 2021-08-02 2021-08-02 [facility] SLAVA LAU [facility] [id number] [place] 09:02:07 09:02:07 [facility] 2021-08-02 2021-08-02 Documentat Fermin, 1.2.840.1 [id number] 1 [id number] Univers 00:00:00 00:00:00 ion Adele 21299.1.1 ity of 3.412.2.7 [place] .3.884850 MD Jackson8 [facility] 2021-08-02 2021-08-02 Jesse Davenport 1.2.840.1 [id number] [id number] Univers 00:00:00 00:00:00 Only Camilla Kinney 04171.1.1 ity of 3.412.2.7 [place] .3.883943 MD Jackson8 [facility] 2021-07-27 2021-07-27 Jesse Dawson 1.2.840.1 [id number] Univers 00:00:00 00:00:00 Only Alexandra 02437.1.1 ity of 3.412.2.7 [place] .3.818776 MD Jackson8 [facility] 2021-07-25 2021-07-25 Documentat Kaci, 1.2.840.1 [id number] Univers 00:00:00 00:00:00 ion Huan Sullivan 38844.1.1 ity of 3.412.2.7 [place] .3.428766 MD Jackson8 [facility] 2021-07-25 2021-07-25 Samantaangelita Slava Ariza 1.2.840.1 [id number] Univers 00:00:00 00:00:00 Nick 55556.1.1 ity of 3.412.2.7 [place] .3.129244 MD Jackson8 [facility] 2021-07-19 2021-07-19 Slava Witt 1.2.840.1 [id number] Univers 15:30:00 16:00:00 Mauricebradjuan Camilla Nirmal 11590.1.1 ity of 3.412.2.7 [place] .3.405582 MD Jackson8 [facility] 2021-07-19 2021-07-19 Outpatient SLAVA LAU [facility] [id number] 15:33:56 15:33:56 Chucky patel 2021-07-19 2021-07-19 ambulatory STLMLC STLMLC [id number] Common 00:00:00 00:00:00 [facility] 2021-07-18 2021-07-18 Outpatient SLAVA LAU [facility] [id number] 15:31:07 15:31:07 Chucky patel 2021-07-15 2021-07-15 Telephone Gloria 1.2.840.1 [id number] [facility] [place] [facility] 00:00:00 00:00:00 Wayne Singh 40718.1.1 it y of 3.412.2.7 [place] .3.660933 MD Jackson8 [facility] 2021-07-13 2021-07-13 Outpatient DOROTHY LORENZ MDA MDA [id number] 13:44:18 13:44:18 YUMI patel 2021-07-13 2021-07-13 Telemedici Yumi Lorenz 1.2.840.1 [id number] Univers 13:00:00 13:30:00 inna Anca Maurer 56111.1.1 ity of 3.412.2.7 [place] .3.476354 MD Jackson8 [facility] 2021-07-13 2021-07-13 Ishaan Maurer, 1.2.840.1 [id number] Univers 00:00:00 00:00:00 Anca Sullivan 04591.1.1 it y of 3.412.2.7 [place] .3.195553 MD Jackson8 [facility] 2021-07-13 2021-07-13 Jesse Lorenz 1.2.840.1 [id number] Univers 00:00:00 00:00:00 Only Yumi 13542.1.1 ity of 3.412.2.7 [place] .3.275022 MD Jackson8 [facility] 2021-07-08 2021-07-12 Inpatient WENDI [facility] [id number] 10:33:00 21:00:00 CINTIA patel 2021-07-08 2021-07-12 [facility] 1.2.840.1 [id number] [facility] [place] [facility] 10:33:00 21:00:00 [facility] Sharlene Knight 38216.1.1 ity of [place] 3.412.2.7 Cintia Rubio .3.960199 MD Jackson8 [facility] 2021-07-12 2021-07-12 Eliza White 1.2.840.1 [id number] Univers 00:00:00 00:00:00 Only 08981.1.1 ity of 3.412.2.7 [place] .3.798708 MD Jackson8 [facility] 2021-07-09 2021-07-09 Inpatient JUAN LOLITA MCHUGH [id number] 14:37:39 15:13:17 Chucky ASKEW 2021-07-08 2021-07-08 Outpatient SLAVA LAU [facility] [id number] [place] 09:19:33 10:32:00 [facility] 2021-07-08 2021-07-08 [facility] Slava Ariza 1.2.840.1 [id number] 10 [id number] [facility] [place] [facility] 09:19:33 10:32:00 Encounter Nick 33522.1.1 it y of 3.412.2.7 [place] .3.831865 MD Jackson8 [facility] 2021-07-08 2021-07-08 Outpatient SLAVA LAU [facility] 1086 [id number] [place] 08:15:00 09:18:00 [facility] 2021-07-08 2021-07-08 [facility] Slava Ariza 1.2.840.1 [id number] 10 [id number] [facility] [place] [facility] 08:15:00 09:18:00 Encounter Nikc 52468.1.1 it y of 3.412.2.7 [place] .3.489970 MD Jackson8 [facility] 2021-07-08 2021-07-08 Travel 1.2.840.1 1.2.353.881 [id number] [id number] [facility] [place] [facility] 00:00:00 00:00:00 01066.1.1 350.1.13.41 ity of 3.412.2.7 [place]7.3.698 [place] .3.7424[place] 084.8 .8 [facility] 2021-07-07 2021-07-07 Outpatient SLAVA LAU [facility] [id number] [place] 20:19:41 23:59:00 [facility] 2021-07-07 2021-07-07 [facility] Slava Ariza 1.2.840.1 [id number] 10 [id number] [facility] [place] [facility] 20:19:41 23:59:00 Encounter Nick 22347.1.1 it y of 3.412.2.7 [place] .3.951255 MD Jackson8 [facility] 2021-07-07 2021-07-07 Outpatient SLAVA LAU [facility] [id number] ME 10:00:00 20:18:00 [facility] 2021-07-07 2021-07-07 [facility] Annita Slava 1.2.840.1 [id number] Univers 10:00:00 20:18:00 Encounter Nick 72701.1.1 it y of 3.412.2.7 [place] .3.307609 MD Jett [facility] 2021-07-07 2021-07-07 Outpatient SLAVA LAU [facility] MDA [id number] 09:45:00 09:59:00 [facility] 2021-07-07 2021-07-07 [facility] Annita Slava 1.2.840.1 [id number] Univers 09:45:00 09:59:00 Encounter Nick 97850.1.1 it y of 3.412.2.7 [place] .3.431461 MD Jackson8 [facility] 2021-07-07 2021-07-07 Jesse Dawson, 1.2.840.1 [id number] Univers 00:00:00 00:00:00 Only Alexandra 54983.1.1 ity of 3.412.2.7 [place] .3.577388 MD Jett [facility] 2021-07-07 2021-07-07 Slava Monroy 1.2.840.1 [id number] Univers 00:00:00 00:00:00 Only Nick 14621.1.1 ity of 3.412.2.7 [place] .3.268350 MD Jett [facility] 2021-07-07 2021-07-07 Travel 1.2.840.1 1.2.161.732 2223 [id number] Univers 00:00:00 00:00:00 37809.1.1 350.1.13.41 ity of 3.412.2.7 2.[place]7.3.698 [place] .3.068425 084.8 MD Jett [facility] 2021-07-06 2021-07-06 Outpatient SLAVA LAU [facility] MDA [id number] 11:21:54 23:59:00 [facility] 2021-07-06 2021-07-06 [facility] Slava Arizaon 1.2.840.1 [id number] [facility] [place] [facility] 11:21:54 23:59:00 Encounter Shwetha Swenson 66009.1.1 ity of 3.412.2.7 [place] .3.134279 .8 [facility] 2021-07-06 2021-07-06 [facility] Slava Ariza Nick 1.2.840.1 [id number] [facility] [place] [facility] 15:00:00 22:23:25 NancyMaame 12928.1.1 ity of 3.412.2.7 [place] .3.820572 .8 [facility] 2021-07-06 2021-07-06 Outpatient SLAVA LAU LOLITA MCHUGH [id number] 13:41:27 22:23:25 [facility] 2021-07-06 2021-07-06 Alexandra Cramer 1.2.840.1 [id number] [facility] [place] [facility] 17:00:00 21:00:00 [place] 91853.1.1 ity of 3.412.2.7 [place] .3.292814 MD Jackson8 [facility] 2021-07-06 2021-07-06 Outpatient DOROTHY DAWSON MDA MDA [id number] 15:25:17 15:25:17 ALEXANDRA patel 2021-07-06 2021-07-06 [facility] Slava Ariza Nick 1.2.840.1 [id number] [facility] [place] [facility] 13:30:00 14:24:35 Visit Anca Maurer 80018.1.1 ity of 3.412.2.7 [place] .3.148314 .8 [facility] 2021-07-06 2021-07-06 Outpatient DOROTHY DALEYSLAVA Patel MDA, MDA [id number] 13:22:42 14:24:35 Chucky patel 2021-07-06 2021-07-06 Outpatient SLAVA LAU MDA, MDA [id number] 09:27:40 11:20:00 [facility] 2021-07-06 2021-07-06 [facility] Slava Ariza 1.2.840.1 [id number] Univers 09:27:40 11:20:00 Encounter Nick 39364.1.1 it y of 3.412.2.7 [place] .3.006435 MD Jackson8 [facility] 2021-07-06 2021-07-06 Outpatient SLAVA ARIZA [facility] [id number] [place] 08:45:00 09:26:00 [facility] 2021-07-06 2021-07-06 [facility] Slava Ariza 1.2.840.1 [id number] 10 [id number] [facility] [place] [facility] 08:45:00 09:26:00 Encounter Nick 04356.1.1 it y of 3.412.2.7 [place] .3.241307 MD Jackson8 [facility] 2021-07-06 2021-07-06 Jesse Dawson 1.2.840.1 [id number] Univers 00:00:00 00:00:00 Only Alexandra 30640.1.1 ity of 3.412.2.7 [place] .3.793491 MD Jackson8 [facility] 2021-07-06 2021-07-06 Orders Gloria 1.2.840.1 [id number] Univers 00:00:00 00:00:00 Only Wayne Singh 31123.1.1 it y of 3.412.2.7 [place] .3.328236 MD Jackson8 [facility] 2021-07-06 2021-07-06 Jesse Dawson 1.2.840.1 [id number] Univers 00:00:00 00:00:00 Only Alexandra 65344.1.1 ity of 3.412.2.7 [place] .3.373584 MD Jackson8 [facility] 2021-07-06 2021-07-06 Travel 1.2.840.1 1.2.680.021 2194 [id number] Univers 00:00:00 00:00:00 39691.1.1 350.1.13.41 ity of 3.412.2.7 2.[place]7.3.698 [place] .3.918447 084.8 .8 [facility] 2021-07-05 2021-07-05 Outpatient SLAVA LAU [facility] [id number] 09:07:24 23:59:00 [facility] 2021-07-05 2021-07-05 [facility] Candy Arizay 1.2.840.1 [id number] 10 [id number] [facility] [place] [facility] 09:07:24 23:59:00 Encounter Nick 19552.1.1 it y of 3.412.2.7 [place] .3.598233 .8 [facility] 2021-07-05 2021-07-05 Travel 1.2.840.1 1.2.868.857 [id number] [id number] [facility] [place] [facility] 00:00:00 00:00:00 93884.1.1 350.1.13.41 ity of 3.412.2.7 2.[place]7.3.698 [place] .3.546175 084.8 .8 [facility] 2021-07-04 2021-07-04 Outpatient DOROTHY LORENZ [facility] [id number] 12:15:00 23:59:00 YUMI [facility] 2021-07-04 2021-07-04 [facility] Yumi Lorenz 1.2.840.1 [id number] [facility] [place] [facility] 12:15:00 23:59:00 Encounter Erica Gates 79529.1.1 ity of 3.412.2.7 [place] .3.717037 .8 [facility] 2021-07-04 2021-07-04 Outpatient SLAVA LAU [facility] [id number] 09:23:55 12:14:00 [facility] 2021-07-04 2021-07-04 [facility] Slava Ariza 1.2.840.1 [id number] [facility] [place] [facility] 09:23:55 12:14:00 Encounter Nick 02475.1.1 it y of 3.412.2.7 [place] .3.293439 MD [facility]8 [facility] [place] 2021-07-04 2021-07-04 Outpatient DOROTHY LORENZ [facility] [id number] MD 09:15:00 09:22:00 YUMI patel 2021-07-04 2021-07-04 [facility] Gerda, 1.2.840.1 [id number] Univers 09:15:00 09:22:00 Encounter Yumi 81462.1.1 it y of 3.412.2.7 [place] .3.761381 .8 [facility] [place] 2021-07-04 2021-07-04 Travel 1.2.840.1 1.2.113.072 7476 [id number] Univers 00:00:00 00:00:00 66155.1.1 350.1.13.41 ity of 3.412.2.7 2.[place]7.3.698 [place] .3.265051 084.8 .8 [facility] 2021-07-01 2021-07-01 Outpatient SLAVA LAU [facility] [id number] 09:26:55 23:59:00 Chucky patel 2021-07-01 2021-07-01 [facility] Slava Ariza 1.2.840.1 [id number] Univers 09:26:55 23:59:00 Encounter Nick 65033.1.1 it y of 3.412.2.7 [place] .3.646286 MD Jackson8 [facility] 2021-07-01 2021-07-01 Outpatient DOROTHY EUNICE [facility] [id number] MD 09:26:30 23:59:00 ALEXANDRA patel 2021-07-01 2021-07-01 [facility] Eunice, 1.2.840.1 [id number] Univers 09:26:30 23:59:00 Encounter Alexandra 08464.1.1 it y of 3.412.2.7 [place] .3.818977 MD Jackson8 [facility] 2021-07-01 2021-07-01 Documentat Cathleen, 1.2.840.1 [id number] Univers 00:00:00 00:00:00 ion Crista Cole 35805.1.1 ity of 3.412.2.7 [place] .3.156768 MD Jett [facility] 2021-07-01 2021-07-01 Telephone Andkaitlynn, 1.2.840.1 [id number] Univers 00:00:00 00:00:00 Caprice 42898.1.1 ity of Marisela 3.412.2.7 [place] .3.794125 MD Jackson8 [facility] 2021-07-01 2021-07-01 Jesse Dawson, 1.2.840.1 [id number] Univers 00:00:00 00:00:00 Only Alexandra 73783.1.1 ity of 3.412.2.7 [place] .3.891576 MD Jackson8 [facility] 2021-07-01 2021-07-01 Jesse Dawson 1.2.840.1 [id number] Univers 00:00:00 00:00:00 Only Alexandra 64396.1.1 ity of 3.412.2.7 [place] .3.441427 MD Jett [facility] 2021-07-01 2021-07-01 Travel 1.2.840.1 1.2.927.465 [id number] Univers 00:00:00 00:00:00 47601.1.1 350.1.13.41 ity of 3.412.2.7 2.2[place]7.3.698 [place] .3.715000 084.8 MD Jett [facility] 2021-06-30 2021-06-30 Outpatient SLAVA LAU [facility] [id number] 10:12:14 23:59:00 Chucky lucero 2021-06-30 2021-06-30 Slava Jean 1.2.840.1 [id number] Univers 10:12:14 23:59:00 Encounter Nick 90872.1.1 it y of 3.412.2.7 [place] .3.665849 MD Jett [facility] 2021-06-30 2021-06-30 Orders Erasto, 1.2.840.1 [id number] Univers 00:00:00 00:00:00 Only Anca Sullivan 13345.1.1 it y of 3.412.2.7 [place] .3.250767 .8 [facility] 2021-06-30 2021-06-30 Travel 1.2.840.1 1.2.354.602 3834 [id number] Univers 00:00:00 00:00:00 99876.1.1 350.1.13.41 ity of 3.412.2.7 2.2.7.3.698 [place] .3.173074 084.8 .8 [facility] 2021-06-29 2021-06-29 Outpatient SLAVA LAU MDA, MDA [id number] 09:21:07 23:59:00 Chuckyreginald patel 2021-06-29 2021-06-29 [place] AnnitaSlava 1.2.840.1 [id number] 10 [id number] [facility] [place] [facility] 09:21:07 23:59:00 Encounter Nick 62873.1.1 it y of 3.412.2.7 [place] .3.379315 .8 [facility] 2021-06-29 2021-06-29 Outpatient SLAVA LAU MDA, MDA [id number] 16:04:56 16:04:56 Chucky patel 2021-06-29 2021-06-29 Office Girish Lorenz.2.840.1 [id number] [facility] [place] [facility] 13:00:00 13:30:00 Visit Yumi 79503.1.1 ity of 3.412.2.7 [place] .3.821155 .8 [facility] 2021-06-29 2021-06-29 Outpatient DOROTHY LORENZ MDA MDA [id number] 12:39:09 12:39:09 YUMI patel 2021-06-29 2021-06-29 Outpatient SLAVA LAU MDA, MDA [id number] 09:20:50 09:20:50 Chucky o 2021-06-29 2021-06-29 Slava Jean 1.2.840.1 [id number] Univers 09:20:50 09:20:50 Encounter Nick 79101.1.1 it y of 3.412.2.7 [place] .3.339358 MD Jackson8 [facility] 2021-06-29 2021-06-29 Slava Monroy 1.2.840.1 [id number] Univers 00:00:00 00:00:00 Only Nick 55727.1.1 ity of 3.412.2.7 [place] .3.852420 MD Jackson8 [facility] 2021-06-29 2021-06-29 Documentat NancyMaame castaneda 1.2.840.1 [id number] Univers 00:00:00 00:00:00 ion Loulou 87092.1.1 ity of 3.412.2.7 [place] .3.510266 MD Jackson8 [facility] 2021-06-29 2021-06-29 Jesse Dawson 1.2.840.1 [id number] Univers 00:00:00 00:00:00 Only Alexandra 01651.1.1 ity of 3.412.2.7 [place] .3.368329 MD Jackson8 [facility] 2021-06-29 2021-06-29 Travel 1.2.840.1 1.2.233.398 [id number] [id number] Univers 00:00:00 00:00:00 37553.1.1 350.1.13.41 ity of 3.412.2.7 2.2[place]7.3.698 [place] .3.405866 084.8 MD Jett [facility] 2021-06-28 2021-06-28 Outpatient SLAVA LAU [facility] [id number] 13:24:55 23:59:00 Chucky patle 2021-06-28 2021-06-28 Slava Jean 1.2.840.1 [id number] Univers 13:24:55 23:59:00 Encounter Nick 92552.1.1 it y of 3.412.2.7 [place] .3.457167 .8 [facility] 2021-06-28 2021-06-28 Travel 1.2.840.1 1.2.424.064 [id number] Univers 00:00:00 00:00:00 91111.1.1 350.1.13.41 ity of 3.412.2.7 2.2.7.3.698 [place] .3.678948 084.8 .8 [facility] 2021-06-27 2021-06-27 Outpatient SLAVA LAU MDA MDA [id number] 08:51:26 23:59:00 Chucky patel 2021-06-27 2021-06-27 [facility] Slava Ariza 1.2.840.1 [id number] [facility] [place] [facility] 08:51:26 23:59:00 Encounter Nick 48758.1.1 it y of 3.412.2.7 [place] .3.381741 .8 [facility] 2021-06-27 2021-06-27 Infusion Yumi Lorenz 1.2.840.1 [id number] Univers 10:00:00 14:00:00 Christy Singh 45115.1.1 ity of 3.412.2.7 [place] .3.127199 .8 [facility] 2021-06-27 2021-06-27 Outpatient DOROTHY LORENZ MDA MDA [id number] 10:10:27 10:10:27 YUMI patel 2021-06-27 2021-06-27 Outpatient DOROTHY LORENZ MDA MDA [id number] 07:30:00 08:50:00 YUMI patel 2021-06-27 2021-06-27 [facility] Girish Lorenz.2.840.1 [id number] Univers 07:30:00 08:50:00 Encounter Yumi 93921.1.1 it y of 3.412.2.7 [place] .3.667274 .8 [facility] 2021-06-27 2021-06-27 Travel 1.2.840.1 1.2.906.334 5500 [id number] [facility] [place] [facility] 00:00:00 00:00:00 59724.1.1 350.1.13.41 ity of 3.412.2.7 2.2[place]7.3.698 [place] .3.107354 084.8 .8 [facility] 2021-06-24 2021-06-24 Outpatient SLAVA LAU [facility] MDA [id number] ME 12:42:26 23:59:00 [facility] 2021-06-24 2021-06-24 [facility] Slava Ariza 1.2.840.1 [id number] [facility] [place] [facility] 12:42:26 23:59:00 Encounter Candy Churchill 63516.1.1 ity of 3.412.2.7 [place] .3.166362 .8 [facility] 2021-06-24 2021-06-24 Outpatient SLAVA LAU [facility] MDA [id number] [place] 10:45:00 12:41:00 [facility] 2021-06-24 2021-06-24 [facility] Slava Ariza 1.2.840.1 [id number] 10 [id number] [facility] [place] [facility] 10:45:00 12:41:00 Merlin Romero 79343.1.1 it y of 3.412.2.7 [place] .3.341444 .8 [facility] 2021-06-24 2021-06-24 Outpatient [facility] [id number] [place] 00:00:00 00:00:[address] 2021-06-24 2021-06-24 Travel 1.2.840.1 1.2.302.738 [id number] [id number] [facility] [place] [facility] 00:00:00 00:00:00 64168.1.1 350.1.13.41 ity of 3.412.2.7 2.2.7.3.698 [place] .3.553293 084.8 .8 [facility] 2021-06-24 2021-06-24 Orders Gerda, 1.2.840.1 [id number] Univers 00:00:00 00:00:00 Only Yumi 88246.1.1 ity of 3.412.2.7 [place] .3.101874 MD Jackson8 [facility] 2021-06-23 2021-06-23 Outpatient DOROTHY ANNITASLAVA Patel [facility] [id number] 10:41:38 23:59:00 [facility] 2021-06-23 2021-06-23 [facility] Slava Ariza 1.2.840.1 [id number] [facility] [place] [facility] 10:41:38 23:59:00 Encounter Nick [id number] it y of 3.412.2.7 [place] .3.709863 MD Jackson8 [facility] 2021-06-23 2021-06-23 Outpatient SLAVA LAU [facility] [id number] 10:30:12 10:40:00 [facility] 2021-06-23 2021-06-23 [facility] Slava Ariza 1.2.840.1 [id number] [facility] [place] [facility] 10:30:12 10:40:00 Encounter Nick [id number] it y of 3.412.2.7 [place] .3.986315 MD Jett [facility] 2021-06-23 2021-06-23 Travel 1.2.840.1 1.2.551.545 [id number] [employer] 00:00:00 00:00:00 18452.1.1 350.1.13.41 ity of 3.412.2.7 2.[place].3.698 [place] .3.014030 084.8 MD Jackson8 [facility] 2021-06-23 2021-06-23 Documentat Maame Cruz 1.2.840.1 [id number] [facility] 00:00:00 00:00:00 [place] K [address].1.1 ity of 3.412.2.7 [place] .3.909546 MD Jackson8 [facility] 2021-06-23 2021-06-23 Orders Erasto, 1.2.840.1 [id number] [employer] 00:00:00 00:00:00 Only Anca Sullivan 88431.1.1 it y of 3.412.2.7 [place] .3.023228 MD Jackson8 [facility] 2021-06-22 2021-06-22 Emergency ER JEREL, [facility] [id number] 11:11:00 20:15:00 BELA [facility] 2021-06-22 2021-06-22 Emergency Jerel, 1.2.840.1 [id number] 10 [id number] [facility] [place] [facility] 11:11:00 20:15:00 Bela 36050.1.1 ity of 3.412.2.7 [place] .3.405522 MD Jackson8 [facility] 2021-06-22 2021-06-22 Outpatient SLAVA LAU [facility] [id number] 09:50:00 11:10:00 [facility] 2021-06-22 2021-06-22 [facility] Slava Ariza 1.2.840.1 [id number] 10 [id number] [facility] [place] [facility] 09:50:00 11:10:00 Encounter Nick 83899.1.1 it y of 3.412.2.7 [place] .3.007475 MD Jackson8 [facility] 2021-06-22 2021-06-22 Travel 1.2.840.1 1.2.567.209 [id number] Univers 00:00:00 00:00:00 22841.1.1 350.1.13.41 ity of 3.412.2.7 [place].3.698 [place] .3.514377 084.8 MD Jackson8 [facility] 2021-06-21 2021-06-21 Outpatient SLAVA LAU [facility] [id number] 08:00:52 23:59:00 [facility] 2021-06-21 2021-06-21 [facility] Slava Ariza 1.2.840.1 [id number] Univers 08:00:52 23:59:00 Encounter Nick 23695.1.1 it y of 3.412.2.7 [place] .3.581749 MD Jett [facility] 2021-06-21 2021-06-21 Outpatient DOROTHY DAWSON MDA MDA [id number] 07:58:46 07:59:00 ALEXANDRA patel 2021-06-21 2021-06-21 [facility] Alexandra Dawson 1.2.840.1 [id number] Univers 07:58:46 07:59:00 Encounter Annita Slavaluis Romero 80439.1.1 ity of 3.412.2.7 [place] .3.128139 MD Jackson8 [facility] 2021-06-21 2021-06-21 Documentat Annita Slava 1.2.840.1 [id number] Univers 00:00:00 00:00:00 ion Nick 95472.1.1 ity of 3.412.2.7 [place] .3.345849 MD Jett [facility] 2021-06-21 2021-06-21 Travel 1.2.840.1 1.2.407.506 [id number] Univers 00:00:00 00:00:00 46738.1.1 350.1.13.41 ity of 3.412.2.7 [place].3.698 [place] .3.620825 084.8 MD Jett [facility] 2021-06-20 2021-06-20 Outpatient DOROTHY LORENZ MDA MDA [id number] 08:14:09 23:59:00 YUMI patel 2021-06-20 2021-06-20 Yumi Ortiz 1.2.840.1 [id number] Univers 08:14:09 23:59:00 Encounter Sam Wilson 62373.1.1 ity of 3.412.2.7 [place] .3.679675 MD [facility] 2021-06-20 2021-06-20 Outpatient DOROTHY LORENZ MDA MDA [id number] 07:58:43 08:13:00 YUMI lucero amanda 2021-06-20 2021-06-20 Hospital Gerda, 1.2.840.1 [id number] [facility] [place] [facility] 07:58:43 08:13:00 Encounter Yumi 24022.1.1 it y of 3.412.2.7 [place] .3.237281 MD Jackson8 [facility] 2021-06-20 2021-06-20 Travel 1.2.840.1 1.2.272.290 [id number] [id number] Univers 00:00:00 00:00:00 72059.1.1 350.1.13.41 ity of 3.412.2.7 [place]7.3.698 [place]3.640113 084.8 MD Jackson8 [facility] 2021-06-17 2021-06-17 Outpatient SLAVA LAU [facility] [id number] [place] 11:45:00 23:59:00 [facility] 2021-06-17 2021-06-17 [facility] Slava Ariza 1.2.840.1 [id number] [facility] [place] [facility] 11:45:00 23:59:00 Encounter Nick 08954.1.1 it y of 3.412.2.7 [place] .3.572150 MD Jackson8 [facility] 2021-06-17 2021-06-17 Jesse Polk, 1.2.840.1 [id number] Univers 00:00:00 00:00:00 Only Alyse 99965.1.1 [place] .3.636364 MD Jackson8 [facility] 2021-06-17 2021-06-17 Jesse Dawson 1.2.840.1 [id number] Univers 00:00:00 00:00:00 Only Alexandra 50353.1.1 ity of 3.412.2.7 [place] .3.829856 MD Jackson8 [facility] 2021-06-17 2021-06-17 Travel 1.2.840.1 1.2.904.771 0906 [id number] Univers 00:00:00 00:00:00 19657.1.1 350.1.13.41 ity of 3.412.2.7 [place]7.3.698 [place]3.963657 084.8 .8 [facility] 2021-06-16 2021-06-16 Outpatient SLAVA LAU [facility] [id number] [place] 11:42:10 23:59:00 [facility] 2021-06-16 2021-06-16 [facility] Annita Slava 1.2.840.1 [id number] [facility] [place] [facility] 11:42:10 23:59:00 Merlin Romero 85431.1.1 it y of 3.412.2.7 [place] .3.064529 MD Jackson8 [facility] 2021-06-16 2021-06-16 Outpatient SLAVA LAU [facility] [id number] 16:11:01 16:11:01 [facility] 2021-06-16 2021-06-16 [facility] 1.2.840.1 1.2.943.712 [id number] Univers 00:00:00 00:00:00 46095.1.1 350.1.13.41 ity of 3.412.2.7 [place]7.3.698 [place] .3.624249 084.8 MD Jackson8 [facility] 2021-06-15 2021-06-15 Outpatient DOROTHY POLK MDA [facility] [id number] 10:37:55 23:59:00 ENE patel 2021-06-15 2021-06-15 [facility] Ene Polk 1.2.840.1 [id number] [facility] [place] [facility] 10:37:55 23:59:00 Christy Bose 60817.1.1 ity of 3.412.2.7 [place] .3.383172 MD Jackson8 [facility] 2021-06-15 2021-06-15 [facility] AnnitaSlava patel Nick 1.2.840.1 [id number] [facility] [place] [facility] 13:00:00 14:11:36 Visit Anca Maurer Laurie 44195.1.1 ity of 3.412.2.7 [place] .3.230488 .8 [facility] 2021-06-15 2021-06-15 Outpatient SLAVA LAU [facility] [id number] 11:27:15 14:11:36 [facility] 2021-06-15 2021-06-15 Outpatient SLAVA LAU [facility] [id number] ME 08:16:55 10:36:00 [facility] 2021-06-15 2021-06-15 [facility] Candy Arizay 1.2.840.1 [id number] 10 [id number] [facility] [place] [facility] 08:16:55 10:36:00 Encounter Nick 72102.1.1 it y of 3.412.2.7 [place] .3.398977 MD Jackson8 [facility] 2021-06-15 2021-06-15 Outpatient SLAVA LAU [facility] [id number] [id number] ME 07:19:30 08:15:00 [facility] 2021-06-15 2021-06-15 Antonio Candy Arizay 1.2.840.1 [id number] [facility] [place] [facility] 07:19:30 08:15:00 Encounter Nick 09639.1.1 it y of 3.412.2.7 [place] .3.179997 MD Jackson8 [facility] 2021-06-15 2021-06-15 Documentat NancyMaame castaneda 1.2.840.1 [id number] [facility] [place] [facility] 00:00:00 00:00:00 ion K 73253.1.1 ity of 3.412.2.7 [place] .3.317593 MD Jackson8 [facility] 2021-06-15 2021-06-15 [facility] Slava Ariza 1.2.840.1 [id number] Univers 00:00:00 00:00:00 Only Nick 53408.1.1 ity of 3.412.2.7 [place] .3.658567 MD Jackson8 [facility] 2021-06-152021-06-15 Orders Gloria, 1.2.840.1 [id number] [facility] [place] [facility] 00:00:00 00:00:00 Only Wayne Singh 02588.1.1 it y of 3.412.2.7 [place] .3.407474 MD Jackson8 [facility] 2021-06-15 2021-06-15 Travel 1.2.840.1 1.2.094.860 [id number] [id number] Univers 00:00:00 00:00:00 51441.1.1 350.1.13.41 ity of 3.412.2.7 2.[place]7.3.698 [place] .3.871403 084.8 MD Jackson8 [facility] 2021-06-14 2021-06-14 Outpatient SLAVA LAU [facility] MDA [id number] ME 20:31:13 23:59:00 Chucky amanda 2021-06-14 2021-06-14 [facility] Slava Ariza 1.2.840.1 [id number] 10 [id number] [facility] [place] [facility] 20:31:13 23:59:00 Encounter Nick 55481.1.1 it y of 3.412.2.7 [place] .3.391247 MD Jackson8 [facility] 2021-06-14 2021-06-14 Outpatient DOROTHY ARIZA SLAVA [facility] MDA [id number] ME 08:01:28 20:30:00 Chucky o 2021-06-14 2021-06-14 Slava Jean 1.2.840.1 [id number] 10 [id number] [facility] [place] [facility] 08:01:28 20:30:00 Encounter Nick 60999.1.1 it y of 3.412.2.7 [place] .3.754516 MD Jackson8 [facility] 2021-06-14 2021-06-14 Travel 1.2.840.1 1.2.231.587 2489 [id number] Univers 00:00:00 00:00:00 33796.1.1 350.1.13.41 ity of 3.412.2.7 2.[place]7.3.698 [place] .3.101220 084.8 .8 Chucky am[facility] [place] 2021-06-13 2021-06-13 Outpatient DOROTHY LORENZ [facility] [id number] 09:15:00 23:59:00 YUMI patel 2021-06-13 2021-06-13 [facility] Yumi Lorenz 1.2.840.1 [id number] [facility] [place] [facility] 09:15:00 23:59:00 Encounter Yue Alaniz 75661.1.1 ity of 3.412.2.7 [place] .3.950278 .8 [facility] [place] 2021-06-13 2021-06-13 Outpatient SLAVA LAU [facility] [id number] 08:20:58 09:14:00 Chucky patel 2021-06-13 2021-06-13 [facility] Slava Ariza 1.2.840.1 [id number] 10 [id number] [facility] [place] [facility] 08:20:58 09:14:00 Encounter Nick 59044.1.1 it y of 3.412.2.7 [place] .3.717089 .[address] [facility] 2021-06-13 2021-06-13 Outpatient SLAVA LAU [facility] [id number] 08:08:42 08:19:00 Chucky patel 2021-06-13 2021-06-13 [facility] Slava Ariza 1.2.840.1 [id number] 10 [id number] [facility] [place] [facility] 08:08:42 08:19:00 Encounter Nick 79041.1.1 it y of 3.412.2.7 [place] .3.861361 .8 [facility] [place] 2021-06-13 2021-06-13 Outpatient DOROTHY LORENZ [facility] [id number] 06:30:00 08:07:00 YUMI patel 2021-06-13 2021-06-13 [facility] Gerda 1.2.840.1 [id number] [facility] [place] [facility] 06:30:00 08:07:00 Encounter Yumi 91544.1.1 it y of 3.412.2.7 [place] .3.864113 .8 [facility] 2021-06-13 2021-06-13 Jesse Dawson, 1.2.840.1 [id number] Univers 00:00:00 00:00:00 Only Alexandra 19685.1.1 ity of 3.412.2.7 [place] .3.610353 MD Jett [facility] 2021-06-13 2021-06-13 Jesse Eunice, 1.2.840.1 [id number] Univers 00:00:00 00:00:00 Only Alexandra 48686.1.1 ity of 3.412.2.7 [place] .3.737653 MD Jett [facility] 2021-06-13 2021-06-13 Travel 1.2.840.1 1.2.097.987 [id number] Univers 00:00:00 00:00:00 92435.1.1 350.1.13.41 ity of 3.412.2.7 2.[place]7.3.698 [place] .3.541369 084.8 MD Jett [facility] 2021-06-10 2021-06-10 Outpatient SLAVA LAU [facility] [id number] 09:48:20 23:59:00 [facility] 2021-06-10 2021-06-10 Slava Jean 1.2.840.1 [id number] 10 [id number] [facility] [place] [facility] 09:48:20 23:59:00 Merlin Romero 50682.1.1 it y of 3.412.2.7 [place] .3.376509 MD Jett [facility] 2021-06-10 2021-06-10 Travel 1.2.840.1 1.2.714.177 3710 [id number] Univers 00:00:00 00:00:00 55747.1.1 350.1.13.41 ity of 3.412.2.7 2.2[place]7.3.698 [place] .3.737937 084.8 MD Jett [facility] 2021-06-09 2021-06-09 Outpatient SLAVA LAU MDA MDA [id number] 08:15:00 23:59:00 [facility] 2021-06-09 2021-06-09 [facility] Slava Ariza 1.2.840.1 [id number] 10 [id number] [facility] [place] [facility] 08:15:00 23:59:00 Encounter Nick 64199.1.1 it y of 3.412.2.7 [place] .3.927956 .8 [facility] 2021-06-09 2021-06-09 Travel 1.2.840.1 1.2.964.806 [id number] [id number] Univers 00:00:00 00:00:00 85516.1.1 350.1.13.41 ity of 3.412.2.7 2.2.7.3.698 [place] .3.113180 084.8 .8 [facility] 2021-06-08 2021-06-08 Outpatient SLAVA LAU [facility] [id number] ME 20:55:35 23:59:00 [facility] 2021-06-08 2021-06-08 [facility] Slava Ariza 1.2.840.1 [id number] 10 [id number] [facility] [place] [facility] 20:55:35 23:59:00 Encounter Nick 09977.1.1 it y of 3.412.2.7 [place] .3.543354 .8 [facility] 2021-06-08 2021-06-08 Outpatient SLAVA LAU [facility] [id number] MD 13:28:31 20:54:00 [facility] 2021-06-08 2021-06-08 [facility] Slava Ariza 1.2.840.1 [id number] 10 [id number] [facility] [place] [facility] 13:28:31 20:54:00 Encounter Nick 90348.1.1 it y of 3.412.2.7 [place] .3.768501 .8 [facility] 2021-06-08 2021-06-08 Outpatient SLAVA LAU [facility] [id number] 16:41:38 16:41:38 [facility] 2021-06-08 2021-06-08 Outpatient DOROTHY DAWSON MDA MDA [id number] 10:37:41 13:27:00 ALEXANDRA patel 2021-06-08 2021-06-08 [facility] Alexandra Dawson 1.2.840.1 [id number] [facility] [place] [facility] 10:37:41 13:27:00 Encounter Crista Connolly 27212.1.1 ity of 3.412.2.7 [place] .3.667872 .8 [facility] 2021-06-08 2021-06-08 Office Gerda 1.2.840.1 [id number] [facility] [place] [facility] 09:30:00 10:00:00 Visit Yumi 07649.1.1 ity of 3.412.2.7 [place] .3.664856 MD Jackson8 [facility] 2021-06-08 2021-06-08 Outpatient DOROTHY LOREZN MDA MDA [id number] 09:30:54 09:30:54 YUMI patel 2021-06-08 2021-06-08 Documentat Maame Cruz 1.2.840.1 [id number] Univers 00:00:00 00:00:00 ion K 89686.1.1 ity of 3.412.2.7 [place] .3.263879 MD Jackson8 [facility] 2021-06-08 2021-06-08 [facility] 1.2.840.1 1.2.171.778 [id number] [id number] Univers 00:00:00 00:00:00 29220.1.1 350.1.13.41 ity of 3.412.2.7 2.[place]7.3.698 [place] .3.956042 084.8 MD Jackson8 Jeanmarie patel [facility] 2021-06-07 2021-06-07 Outpatient SLAVA LAU [facility] [id number] 11:48:52 23:59:00 Chucky patel 2021-06-07 2021-06-07 Slava Jean 1.2.840.1 [id number] 10 [id number] [facility] [place] [facility] 11:48:52 23:59:00 Encounter Nick 68308.1.1 it y of 3.412.2.7 [place] .3.082779 MD Jackson8 [facility] 2021-06-07 2021-06-07 Travel 1.2.840.1 1.2.924.925 2418 [id number] [facility] [place] [facility] 00:00:00 00:00:00 74861.1.1 350.1.13.41 ity of 3.412.2.7 2.[place]7.3.698 [place] .3.720907 084.8 .8 [facility] 2021-06-06 2021-06-06 Outpatient DOROTHY SLAVA ARIZA [facility] [id number] 13:38:56 23:59:00 [facility] 2021-06-06 2021-06-06 [facility] Slava Ariza 1.2.840.1 [id number] 10 [id number] [facility] [place] [facility] 13:38:56 23:59:00 Encounter Nick 12015.1.1 it y of 3.412.2.7 [place] .3.844077 MD Jett [facility] 2021-06-06 2021-06-06 Outpatient DOROTHY LORENZ [facility] MDA [id number] 07:00:00 13:37:00 YUMI patel 2021-06-06 2021-06-06 [facility] 1.2.840.1 [id number] [facility] [place] [facility] 07:00:00 13:37:00 Encounter Yumi 43349.1.1 it y of 3.412.2.7 [place] .3.882978 MD Jackson8 [facility] 2021-06-06 2021-06-06 Outpatient DOROTHY LORENZ [facility] MDA [id number] MD 06:30:00 06:59:00 YUMI patel 2021-06-06 2021-06-06 [facility] 1.2.840.1 [id number] [facility] [place] [facility] 06:30:00 06:59:00 Encounter Yumi 71885.1.1 it y of 3.412.2.7 [place] .3.434364 MD Jett [facility] 2021-06-06 2021-06-06 Orders Jam, 1.2.840.1 [id number] Univers 00:00:00 00:00:00 Only Alyse 94653.1.1 it[place] 3.[place].2.7 [place] .3.253516 MD Jett [facility] 2021-06-06 2021-06-06 Orders Gerda, 1.2.840.1 [id number] Univers 00:00:00 00:00:00 Only Yumi 53785.1.1 ity of 3.412.2.7 [place] .3.574703 MD Jett [facility] 2021-06-06 2021-06-06 Travel 1.2.840.1 1.2.262.442 [id number] [id number] Univers 00:00:00 00:00:00 23801.1.1 350.1.13.41 ity of 3.412.2.7 2.2[place]7.3.698 [place] .3.243587 084.8 MD Jett [facility] 2021-06-02 2021-06-02 Outpatient SLAVA ARIZA [facility] [id number] ME 06:16:14 23:59:00 Chucky o 2021-06-02 2021-06-02 [facility] Slava Ariza 1.2.840.1 [id number] Univers 06:16:14 23:59:00 Encounter Nick 46390.1.1 it y of 3.412.2.7 [place] .3.125899 MD Jett [facility] 2021-06-02 2021-06-02 Documentat Melvina, 1.2.840.1 [id number] Univers 00:00:00 00:00:00 ion Romeo Castaneda 81121.1.1 ity of 3.412.2.7 [place] .3.023196 MD Jett [facility] 2021-06-02 2021-06-02 Travel 1.2.840.1 1.2.714.158 [id number] Univers 00:00:00 00:00:00 39223.1.1 350.1.13.41 ity of 3.412.2.7 2.2[place]7.3.698 [place] .3.540912 084.8 MD Jackson8 [facility] 2021-06-01 2021-06-01 Outpatient DOROTHY PRUITTYUE LOVE LOLITA MDA [id number] 10:37:44 23:59:00 Chucky amanda 2021-06-01 2021-06-01 [facility] Favio Yue Shagufta 1.2.840.1 1 [id number] [facility] [place] [facility] 10:37:44 23:59:00 Encounter Johanne Harry 83818.1.1 ity of 3.412.2.7 [place] .3.882640 MD Jackson8 [facility] 2021-06-01 2021-06-01 Office Girish [place].2.840.1 [id number] [facility] [place] [facility] 14:00:00 14:00:28 Visit Clint 17099.1.1 ity of 3.412.2.7 [place] .3.879848 MD Jackson8 [facility] 2021-06-01 2021-06-01 Outpatient DOROTHY GROVE MDA MDA [id number] 13:15:31 14:00:28 CLINT patel 2021-06-01 2021-06-01 Outpatient SLAVA LAU MDA MDA [id number] 06:18:07 10:36:00 Chucky patel 2021-06-01 2021-06-01 [facility] Slava Ariza 1.2.840.1 [id number] 10 [id number] [facility] [place] [facility] 06:18:07 10:36:00 Encounter Nick 17048.1.1 it y of 3.412.2.7 [place] .3.952825 MD Jackson8 [facility] 2021-06-01 2021-06-01 Travel 1.2.840.1 1.2.211.570 3823 [id number] [facility] [place] [facility] 00:00:00 00:00:00 03797.1.1 350.1.13.41 ity of 3.412.2.7 2.2[place]7.3.698 [place] .3.356819 084.8 .8 [facility] 2021-05-31 2021-05-31 Outpatient SLAVA LAU LOLITA MDA [id number] 14:02:11 23:59:00 Chuckyreginald patel 2021-05-31 2021-05-31 [facility] Slava Ariza 1.2.840.1 [id number] [facility] [place] [facility] 14:02:11 23:59:00 Encounter Nick 60188.1.1 it y of 3.412.2.7 [place] .3.104679 MD Jackson8 [facility] 2021-05-31 2021-05-31 [facility] Slava Ariza 1.2.840.1 [id number] [facility] [place] [facility] 10:15:00 20:53:44 Maame Cruz 46184.1.1 ity of 3.412.2.7 [place] .3.955059 MD Jackson8 [facility] 2021-05-31 2021-05-31 Outpatient SLAVA LAU [facility] MDA [id number] 09:00:07 20:53:44 Chucky amanda 2021-05-31 2021-05-31 Outpatient DOROTHY CARDOSO LOLITA MDA [id number] 15:31:35 [facility] 2021-05-31 2021-05-31 Outpatient SLAVA LAU [facility] MDA [id number] ME 05:46:59 14:01:00 [facility] 2021-05-31 2021-05-31 [facility] Slava Ariza 1.2.840.1 [id number] 10 [id number] [facility] [place] [facility] 05:46:59 14:01:00 Encounter Nick 64268.1.1 it y of 3.412.2.7 [place] .3.423971 .8 [facility] 2021-05-31 2021-05-31 Travel 1.2.840.1 1.2.565.597 [id number] [facility] [place] [facility] 00:00:00 00:00:00 22819.1.1 350.1.13.41 ity of 3.412.2.7 2.[place]7.3.698 [place] .3.449520 084.8 MD Jackson8 [facility] 2021-05-30 2021-05-30 Outpatient SLAVA LAU [facility] [id number] ME 06:55:13 23:59:00 Chucky patel 2021-05-30 2021-05-30 [facility] Slava Ariza 1.2.840.1 [id number] [facility] [place] [facility] 06:55:13 23:59:00 Encounter Nick 50802.1.1 it y of 3.412.2.7 [place] .3.887360 MD Jackson8 [facility] 2021-05-30 2021-05-30 Infusion Yumi Lorenz 1.2.840.1 [id number] Univers 11:30:00 15:30:00 Cole Rosenthal 94378.1.1 ity of 3.412.2.7 [place] .3.506969 MD Jackson8 [facility] 2021-05-30 2021-05-30 Outpatient DOROTHY LORENZ [facility] [id number] 11:10:48 11:10:48 YUMI patel 2021-05-30 2021-05-30 Outpatient DOROTHY LORENZ [facility] [id number] MD 06:15:00 06:54:00 YUMI patel 2021-05-30 2021-05-30 [facility] Gerda 1.2.840.1 [id number] [facility] [place] [facility] 06:15:00 06:54:00 Encounter Yumi 14099.1.1 it y of 3.412.2.7 [place] .3.777525 MD Jackson8 [facility] 2021-05-30 2021-05-30 Travel 1.2.840.1 1.2.007.110 [id number] Univers 00:00:00 00:00:00 76068.1.1 350.1.13.41 ity of 3.412.2.7 2.2[place]7.3.698 [place] .3.513212 084.8 MD Jett [facility] 2021-05-25 2021-05-25 Outpatient SLAVA LAU [facility] [id number] 08:51:12 23:59:00 Chucky patel 2021-05-25 2021-05-25 [facility] Slava Ariza 1.2.840.1 [id number] 10 [id number] [facility] 08:51:12 23:59:00 Encounter Nick [id number] it y of 3.412.2.7 [place] .3.534541 MD Jackson8 [facility] 2021-05-25 2021-05-25 Office Gerda 1.2.840.1 [id number] [facility] 11:00:00 11:57:52 Visit Yumi 07208.1.1 ity of 3.412.2.7 [place] .3.443236 MD Jackson8 [facility] 2021-05-25 2021-05-25 Outpatient DOROTHY GERDALOLITA MDA [id number] MD 10:29:47 11:57:52 YUMI patel 2021-05-25 2021-05-25 Outpatient SLAVA LAU [facility] [id number] 08:22:09 08:50:00 Chucky patel 2021-05-25 2021-05-25 [facility] Slava Ariza 1.2.840.1 [id number] [facility] 08:22:09 08:50:00 Encounter Nick 23986.1.1 it y of 3.412.2.7 [place] .3.144922 MD Jackson8 [facility] 2021-05-25 2021-05-25 Jesse Dawson, 1.2.840.1 [id number] [employer] 00:00:00 00:00:00 Only Alexandra 72704.1.1 ity of 3.412.2.7 [place] .3.448202 MD Jackson8 [facility] 2021-05-25 2021-05-25 Travel 1.2.840.1 1.2.403.394 [id number] [facility] 00:00:00 00:00:00 69660.1.1 350.1.13.41 ity of 3.412.2.7 2.[place]7.3.698 [place] .3.585523 084.8 .8 [facility] 2021-05-24 2021-05-24 Outpatient SLAVA LAU [facility] [id number] [place] 14:48:05 23:59:00 Chucky patel 2021-05-24 2021-05-24 [facility] Slava Ariza 1.2.840.1 [id number] 10 [id number] [facility] 14:48:05 23:59:00 Encounter Nick [id number] it y of 3.412.2.7 [place] .3.288457 MD Jackson8 [facility] 2021-05-24 2021-05-24 Travel 1.2.840.1 1.2.534.418 [id number] [facility] 00:00:00 00:00:00 12216.1.1 350.1.13.41 ity of 3.412.2.7 2.[place]7.3.698 [place] .3.465494 084.8 .8 [facility] 2021-05-23 2021-05-23 Outpatient SLAVA LAU [facility] [id number] [place] 15:22:13 23:59:00 Chuckyreginald patel 2021-05-23 2021-05-23 [facility] Slava Ariza 1.2.840.1 [id number] [facility] [place] [facility] 15:22:13 23:59:00 Encounter Nick 59490.1.1 it y of 3.412.2.7 [place] .3.414267 MD Jackson8 [facility] 2021-05-23 2021-05-23 Outpatient DOROTHY LORENZ [facility] [id number] [place] 08:29:28 15:21:00 YUMI patel 2021-05-23 2021-05-23 [facility] Gerda 1.2.840.1 [id number] [facility] [place] [facility] 08:29:28 15:21:00 Encounter Yumi 41204.1.1 it y of 3.412.2.7 [place] .3.385449 MD Jackson8 [facility] 2021-05-23 2021-05-23 Outpatient DOROTHY LORENZ [facility] MDA [id number] 08:49:56 14:05:15 YUMI patel 2021-05-23 2021-05-23 Melissa Yumi Lorenz 1.2.840.1 [id number] [facility] [place] [facility] 08:30:00 14:05:15 Roc James 97880.1.1 ity of 3.412.2.7 [place] .3.969919 .8 [facility] 2021-05-23 2021-05-23 Outpatient SLAVA LAU [facility] MDA [id number] 06:28:35 08:28:00 Chuckyreginald patel 2021-05-23 2021-05-23 [facility] AnnitaCandy pately 1.2.840.1 [id number] [facility] [place] [facility] 06:28:35 08:28:00 Encounter Nick 08693.1.1 it y of 3.412.2.7 [place] .3.366283 MD Jackson8 [facility] 2021-05-23 2021-05-23 Travel 1.2.840.1 1.2.699.294 [id number] [facility] [place] [facility] 00:00:00 00:00:00 15096.1.1 350.1.13.41 ity of 3.412.2.7 [place].3.698 [place] .3.9460[place] 084.8 MD Jackson8 [facility] 2021-05-22 2021-05-22 Outpatient SLAVA LAU [facility] MDA [id number] 14:50:33 23:59:00 Chuckyreginald patel 2021-05-22 2021-05-22 [facility] Candy Arizay 1.2.840.1 [id number] [facility] [place] [facility] 14:50:33 23:59:00 Encounter Nick 30927.1.1 it y of 3.412.2.7 [place] .3.663206 MD Jackson8 [facility] 2021-05-22 2021-05-22 Documentat Nguyen, 1.2.840.1 [id number] Univers 00:00:00 00:00:00 ion Caprice 41145.1.1 ity of [place] 3.412.2.7 [place] .3.878006 .8 [facility] 2021-05-22 2021-05-22 Travel 1.2.840.1 1.2.988.244 [id number] Univers 00:00:00 00:00:00 90561.1.1 350.1.13.41 ity of 3.412.2.7 2.[place]7.3.698 [place] .3.833032 084.8 .8 [facility] 2021-05-19 2021-05-19 Slava Witt 1.2.840.1 [id number] [facility] [place] [facility] 11:15:00 13:40:55 Maame Cruz 36197.1.1 ity of 3.412.2.7 [place] .3.257026 MD Jackson8 [facility] 2021-05-19 2021-05-19 Outpatient SLAVA LAU [facility] [id number] 11:03:15 13:40:55 [facility] 2021-05-19 2021-05-19 Orders Jam, 1.2.840.1 [id number] [facility] [place] [facility] 00:00:00 00:00:00 Only Ene Singh 68504.1.1 ity of 3.412.2.7 [place] .3.475738 MD Jackson8 [facility] 2021-05-18 2021-05-18 Outpatient DOROTHY DAWSON MDA MDA [id number] 09:16:35 23:59:00 ALEXANDRA patel 2021-05-18 2021-05-18 [facility] Alexandra Dawson 1.2.840.1 [id number] [facility] [place] [facility] 09:16:35 23:59:00 Cady Breen 02331.1.1 ity of 3.412.2.7 [place] .3.398397 MD Jackson8 [facility] 2021-05-18 2021-05-18 Outpatient SLAVA LAU MDA [facility] [id number] 15:19:23 15:19:23 Chucky o n 2021-05-18 2021-05-18 Travel 1.2.840.1 1.2.239.514 [id number] Univers 00:00:00 00:00:00 27580.1.1 350.1.13.41 ity of 3.412.2.7 [place]7.3.698 [place] .3.501633 084.8 .8 [facility] 2021-05-16 2021-05-16 Outpatient SLAVA ARIZA [facility] [id number] 08:30:00 23:59:00 [facility] 2021-05-16 2021-05-16 Slava Jean 1.2.840.1 [id number] [facility] [place] [facility] 08:30:00 23:59:00 Encounter Nick 66065.1.1 it y of 3.412.2.7 [place] .3.401395 MD Jackson8 [facility] 2021-05-16 2021-05-16 Orders Erasto, 1.2.840.1 [id number] Univers 00:00:00 00:00:00 Only Anca H 84458.1.1 it y of 3.412.2.7 [place] .3.024946 MD Jett [facility] 2021-05-16 2021-05-16 Documentat Clemons, 1.2.840.1 [id number] Univers 00:00:00 00:00:00 ion Huan H 38928.1.1 ity of 3.412.2.7 [place] .3.565601 MD Jett [facility] 2021-05-12 2021-05-12 Documentat Slava Ariza 1.2.840.1 [id number] Univers 00:00:00 00:00:00 ion Nick 03847.1.1 ity of 3.412.2.7 [place] .3.351054 MD Jett [facility] 2021-05-12 2021-05-12 Multidisci Bartelsmeye 1.2.840.1 [id number] Univers 00:00:00 00:00:00 Jane castillo 81798.1.1 ity of Visit 3.412.2.7 [place] .3.870193 .8 [facility] 2021-05-12 2021-05-12 Jesse Lorenz 1.2.840.1 [id number] Univers 00:00:00 00:00:00 Only Yumi 52177.1.1 ity of 3.412.2.7 [place] .3.137605 .8 [facility] 2021-05-11 2021-05-11 Outpatient SLAVA LAU [facility] MDA [id number] 12:11:49 23:59:00 [facility] 2021-05-11 2021-05-11 Antonio lSava Ariza 1.2.840.1 [id number] [facility] [place] [facility] 12:11:49 23:59:00 Merlin Romero 50477.1.1 it y of 3.412.2.7 [place] .3.011720 .8 [facility] 2021-05-11 2021-05-11 Jerrod Lorenz 1.2.840.1 [id number] [facility] [place] [facility] 14:00:00 16:28:29 Yumi 30779.1.1 ity of 3.412.2.7 [place] .3.315134 .8 [facility] 2021-05-11 2021-05-11 Outpatient DOROTHY LORENZ MDA MDA [id number] 13:49:12 16:28:29 YUMI patel 2021-05-11 2021-05-11 Outpatient DOROTHY DAWSON MDA MDA [id number] 08:59:55 15:39:22 ALEXANDRA patel 2021-05-11 2021-05-11 Alexandra Cuello 1.2.840.1 [id number] [facility] [place] [facility] 08:45:00 15:39:22 Support Thao Baldwin 52779.1.1 ity of 3.412.2.7 [place] .3.162851 MD Jackson8 [facility] 2021-05-11 2021-05-11 Outpatient DOROTHY DAWSON [facility] MDA [id number] MD 10:00:00 12:10:00 ALEXANDRA patel 2021-05-11 2021-05-11 Antonio Dawson Alexandra 1.2.840.1 [id number] [facility] [place] [facility] 10:00:00 12:10:00 Slava Samaniego 00838.1.1 ity of 3.412.2.7 [place] .3.304129 MD Jackson8 [facility] 2021-05-11 2021-05-11 Outpatient DOROTHY DAWSON MDA MDA [id number] 09:15:00 09:59:00 ALEXANDRA patel 2021-05-11 2021-05-11 Antonio Dawson 1.2.840.1 [id number] [facility] [place] [facility] 09:15:00 09:59:00 Encounter Alexandra 96236.1.1 it y of 3.412.2.7 [place] .3.343820 MD Jackson8 [facility] 2021-05-11 2021-05-11 Documentat Slava Ariza 1.2.840.1 [id number] Univers 00:00:00 00:00:00 ladi Romero 46691.1.1 ity of 3.412.2.7 [place] .3.659590 MD Jackson8 [facility] 2021-05-11 2021-05-11 Documentat Arina Robles 1.2.840.1 [id number] Univers 00:00:00 00:00:00 ion 77518.1.1 ity of 3.412.2.7 [place] .3.253103 MD Jackson8 [facility] 2021-05-11 2021-05-11 Documentat Slava Ariza 1.2.840.1 [id number] Univers 00:00:00 00:00:00 ion Nick 26804.1.1 ity of 3.412.2.7 [place] .3.998362 MD Jackson8 [facility] 2021-05-11 2021-05-11 Jesse Sweeney 1.2.840.1 [id number] Univers 00:00:00 00:00:00 Only Jose Martin 59380.1.1 ity of Shahwar 3.412.2.7 [place] .3.471267 MD Jackson8 [facility] 2021-05-11 2021-05-11 Travel 1.2.840.1 1.2.184.651 [id number] Univers 00:00:00 00:00:00 95950.1.1 350.1.13.41 ity of 3.412.2.7 2.[place]7.3.698 [place] .3.947456 084.8 MD Jackson8 [facility] 2021-05-10 2021-05-10 Slava Monroy 1.2.840.1 [id number] Univers 00:00:00 00:00:00 Only Nick 19908.1.1 ity of 3.412.2.7 [place] .3.303519 MD Jackson8 [facility] 2021-05-09 2021-05-09 Outpatient DOROTHY SALINAS MDA MDA [id number] 11:38:34 11:38:34 LEONID patel 2021-05-09 2021-05-09 Outpatient DOROTHY ARIZASLAVA LOLITA MDA [id number] 11:38:24 11:38:24 Chucky patel 2021-05-06 2021-05-06 Outpatient DOROTHY AHUMADA MDA MDA [id number] 10:53:13 23:59:00 ELVA patel 2021-05-06 2021-05-06 [facility] 1.2.840.1 [id number] [facility] [place] [facility] 10:53:13 23:59:00 Encounter Elva 96833.1.1 it y of 3.412.2.7 [place] .3.590992 MD Jackson[facility] 2021-05-06 2021-05-06 Outpatient LOLITA AHUMADA MDA [id number] 10:44:38 10:52:00 ELVA Locke o amanda 2021-05-06 2021-05-06 [facility], 1.2.840.1 [id number] [facility] [place] [facility] 10:44:38 10:52:00 Encounter Elva 18832.1.1 it y of 3.412.2.7 [place] .3.345177 MD Jett [facility] 2021-05-06 2021-05-06 Outpatient DOROTHY DAWSON [facility] [id number] 08:30:00 10:43:00 ALEXANDRA Locke [facility] 2021-05-06 2021-05-06 [facility] Eunice Alexandra 1.2.840.1 [id number] Univers 08:30:00 10:43:00 Encounter Sara Harris 32155.1.1 ity of 3.412.2.7 [place] .3.883735 MD Jett [facility] 2021-05-06 2021-05-06 Outpatient DOROTHY POLK [facility] [id number] 07:45:03 08:29:00 ENE patel 2021-05-06 2021-05-06 [facility] Jam, 1.2.840.1 [id number] [facility] [place] [facility] 07:45:03 08:29:00 Encounter Ene Singh 70042.1.1 it y of 3.412.2.7 [place] .3.348491 MD Jett [facility] 2021-05-06 2021-05-06 [facility] 1.2.840.1 1.2.821.895 [id number] Univers 00:00:00 00:00:00 16168.1.1 350.1.13.41 ity of 3.412.2.7 [place]7.3.698 [place] .3.377407 084.8 MD Jett [facility] 2021-05-05 2021-05-05 Orders Josse, 1.2.840.1 [id number] Univers 00:00:00 00:00:00 Only Dixie 82694.1.1 ity of [place] 3.412.2.7 [place] .3.265417 MD Jett [facility] 2021-05-04 2021-05-04 Outpatient SLAVA LAU [facility] MDA [id number] 10:40:00 23:59:00 Chucky patel 2021-05-04 2021-05-04 [facility] Slava Ariza 1.2.840.1 [id number] [facility] [place] [facility] 10:40:00 23:59:00 Encounter Nick 06604.1.1 it y of 3.412.2.7 [place] .3.728760 MD Jackson8 [facility] 2021-05-04 2021-05-04 Outpatient DOROTHY DAWSON LOLITA MDA [id number] MD 10:16:12 12:58:49 ALEXANDRA patel 2021-05-04 2021-05-04 Clinical Alexandra Dawson 1.2.840.1 [id number] [facility] [place] [facility] 10:15:00 12:58:49 Support Trixie Hollingsworth 22384.1.1 ity of 3.412.2.7 [place] .3.896857 .[address] [facility] [address] 2021-05-04 2021-05-04 Outpatient DOROTHY LORENZ LOLITA [facility] [id number] 09:45:00 10:39:00 YUMI patel 2021-05-04 2021-05-04 [facility] Gerda, 1.2.840.1 [id number] [facility] [place] [facility] 09:45:00 10:39:00 Encounter Yumi 71397.1.1 it y of 3.412.2.7 [place] .3.166344 MD Jackson8 [facility] 2021-05-04 2021-05-04 Jesse Sweeney 1.2.840.1 [id number] Univers 00:00:00 00:00:00 Only Jose Martin 70311.1.1 ity of Shahwar 3.412.2.7 [place] .3.353873 MD Jackson8 [facility] 2021-05-04 2021-05-04 [facility] 1.2.840.1 1.2.733.447 [id number] Univers 00:00:00 00:00:00 74890.1.1 350.1.13.41 ity of 3.412.2.7 [place]7.3.698 [place] .3.172544 084.8 MD Jett [facility] 2021-05-03 2021-05-03 [id number] [place] 08:06:41 23:59:00 ALEXANDRA Chuckyreginald patel 2021-05-03 2021-05-03 [facility], 1.2.840.1 [id number] [facility] [place] [facility] 08:06:41 23:59:00 Encounter Alexandra 55564.1.1 it y of 3.412.2.7 [place] .3.761959 MD Jackson8 [facility] 2021-05-03 2021-05-03 [facility], 1.2.840.1 [id number] [facility] [place] [facility] 06:25:00 07:50:00 Procedure Alexandra 69166.1.1 it y of 3.412.2.7 [place] .3.714940 MD Jett [facility] 2021-05-03 2021-05-03 [facility] [id number] [place] 06:25:36 06:25:36 ALEXANDRA patel 2021-05-03 2021-05-03 Travel 1.2.840.1 1.2.917.444 [id number] [facility] [place] [facility] 00:00:00 00:00:00 46113.1.1 350.1.13.41 ity of 3.412.2.7 2.[place]7.3.698 [place] .3.425292 084.8 MD Jett [facility] 2021-05-02 2021-05-02 [facility] [id number] [place] 13:03:47 13:06:58 Chucky patel 2021-05-02 2021-05-02 Travel 1.2.840.1 1.2.726.756 [id number] [facility] [place] [facility] 00:00:00 00:00:00 57760.1.1 350.1.13.41 ity of 3.412.2.7 2.2.7.3.698 [place] .3.067521 084.8 MD .8 [facility] 2021-05-01 2021-05-01 Orders Gerda, 1.2.840.1 [id number] Univers 00:00:00 00:00:00 Only Yumi 50947.1.1 ity of 3.412.2.7 [place] .3.190782 MD Jett [facility] 2021-04-26 2021-04-26 Orders [place], 1.2.840.1 [id number] Univers 00:00:00 00:00:00 Only Yesenia 21552.1.1 ity of [place] 3.412.2.7 [place] .3.053316 MD Jett [facility] 2021-04-26 2021-04-26 Jesse Dawson, 1.2.840.1 [id number] Univers 00:00:00 00:00:00 Only Alexandra 13611.1.1 ity of 3.412.2.7 [place] .3.195801 MD Jett [facility] 2021-04-22 2021-04-22 Ancillary 1.2.840.1 [id number] Univers 20:25:00 20:30:00 Procedure 86780.1.1 it y of 3.412.2.7 [place] .3.554398 MD Jett [facility] 2021-04-22 2021-04-22 Ancillary 1.2.840.1 [id number] Univers 20:20:00 20:25:00 Procedure 77662.1.1 it y of 3.412.2.7 [place] .3.188302 MD Jett [facility] 2021-04-22 2021-04-22 Ancillary 1.2.840.1 [id number] Univers 20:15:00 20:20:00 Procedure 52803.1.1 it y of 3.412.2.7 [place] .3.422735 MD Jett [facility] 2021-04-22 2021-04-22 Ancillary 1.2.840.1 [id number] Univers 20:10:00 20:15:00 Procedure 46100.1.1 it y of 3.412.2.7 [place] .3.834209 .8 [facility] 2021-04-22 2021-04-22 Ancillary 1.2.840.1 [id number] Univers 20:05:00 20:10:00 Procedure 89849.1.1 it y of 3.412.2.7 [place] .3.093921 .8 [facility] 2021-04-22 2021-04-22 Ancillary 1.2.840.1 [id number] Univers 20:00:00 20:05:00 Procedure 27350.1.1 it y of 3.412.2.7 [place] .3.248177 .8 [facility] 2021-04-22 2021-04-22 Outpatient EL MDA MDA [id number] MD 11:48:16 11:48:16 Chucky o n 2021-04-22 2021-04-22 Outpatient EL MDA MDA [id number] MD 11:48:13 11:48:13 Chucky o n 2021-04-22 2021-04-22 Outpatient EL MDA MDA [id number] MD 11:48:12 11:48:12 Chucky o n 2021-04-22 2021-04-22 Outpatient EL MDA MDA [id number] MD 11:48:10 11:48:10 Chucky o n 2021-04-22 2021-04-22 Outpatient EL MDA MDA [id number] MD 11:48:08 11:48:08 Chucky o n 2021-04-22 2021-04-22 Outpatient EL MDA MDA [id number] MD 11:48:06 11:48:06 Chucky o n 2021-04-20 2021-04-20 Lab Steve Munguia 1.2.840.1 [id number] Univers 00:00:00 00:00:00 Korina Brooks 88741.1.1 i ty of n 3.412.2.7 [place] .3.810723 .8 [facility] 2021-03-18 2021-03-18 Outpatient STLMLC STLMLC [id number] Common 00:00:00 00:00:00 [facility] 2021-02-15 2021-02-15 Outpatient STLMLC STLMLC [id number] Common 00:00:00 00:00:00 [facility] 2021-01-11 2021-01-11 Outpatient STLMLC STLMLC [id number] Common 00:00:00 00:00:00 [facility] 2020-10-26 2020-10-26 Outpatient [facility] [id number] [address] [place] [address] 00:00:00 00:00:00 PAT [address] 2020-04-07 2020-04-07 Outpatient STLMLC STLMLC [id number] Common 00:00:00 00:00:00 [facility] 2020-03-15 2020-03-15 Outpatient STLMLC STLMLC [id number] Common 00:00:00 00:00:00 [facility] 2020-02-11 2020-02-11 [facility] [id number] Common 09:19:00 09:19:00 t Specialty/U Sp franco Specialty rology - [facility] 2019-12-23 2019-12-23 [facility] [id number] Common 13:20:00 13:20:[address] [place] [address] [facility] 2019-12-12 2019-12-12 [facility] [id number] Common 11:00:00 11:00:[address] [address] [facility] 2019-12-04 2019-12-04 [facility] [id number] Common 08:44:00 08:44:[address] [address] [facility] 2019-11-21 2019-11-21 [facility] [id number] Common 16:47:00 16:47:00 t Specialty/U Sp franco Specialty rology - [facility] 2019-11-14 2019-11-14 [facility] [id number] Common 08:00:00 08:00:[address] [address] [facility] 2019-11-13 2019-11-13 Outpatient Chayo Domingot [id number] Common 14:40:00 14:40:[address] [address] [facility] 2019-10-24 2019-10-24 Outpatient [facility] [id number] [place] 00:00:00 00:00:00 PAT [address] 2019-10-22 2019-10-22 Outpatient Chayo Domingot [id number] Common 14:12:00 14:12:00 t Specialty/U Sp franco Specialty rology - [facility] 2019-10-14 2019-10-14 Outpatient [facility] [id number] 809 [place] 00:00:00 00:00:00 PAT [address] Results Test Description Test Time Test Comments Results Result Comments Source Sed Rate 2022-01-12 20:24:02 Test Item Value Reference Range Interpretation Comme nts Sed Rate (test code = 4537-7) 20 See_Comment H [Automated message] The system which generated this result transmitted ref erence range: 0 - 9 mm/hr. The re ference range was not used to int erpret this result as shavon l/abnormal. Lab Interpretation (test code Abnormal = 59080-6) [facility] 16:20:50 Test Item Value Reference Range Interpretation Comments CRP (test code = 1.17 mg/L Reference r alejandra [place] HS CRP 21655-5) assay are as fo llows: Reference range s when used to assess cardi ac risk: <1.00 mg/L Low cardiovascular risk 1.00-3.00 mg/L Average cardiovascular risk >3.00 mg/L High cardi ovascular risk.Reference ranges when used to assess inflammatory responses: Less than or equal to 10.00 mg/L. [facility] HospitalFractionated [id number] 15:52:56 Test Item Value Reference Range Interpretation Comments Bili Total (test 0.3 mg/dL See_Comment Indocyanine Green (ICG) code = 1975-2) may cause fal sely elevated biliru bin results. Total and direct bilirubin must not be measured from s amples containing indo cyanine green. False el evation of total bilirubin can be seen in patient s with IgG concentrations above 28 g/L. [Automated message] The system [employer] generated this result transmitted ref erence range: [...] result as normal/abnormal . Bili Indirect (test 0.1 mg/dL 0.0-0.9 code = 1970-) [facility] [id number] 15:52:55 Test Item Value Reference Range Interpretation Comments Total Protein (test code = 2885-2) 5.8 g/dL 6.4-8.3 L Lab Interpretation (test code = Abnormal 55999-0) [facility] HospitalCalcium [id number] 15:52:53 Test Item Value Reference Range Interpretation Comments Calcium Lvl (test code = 32884-9) 9.5 mg/dL 8.4-10.2 [facility]Glomer[facility] Filtration Rate 2022-01-12 15:52:52 Test Item Value Reference Range Interpretation Comments eGFR-AA (test code 123 See_Comment Normal eG FR: >= 60 = 72882-8) mL/min/1.73 m2N ote: The eGFR is calculated u sing the CKD-EPI equatio n. The eGFR declines with a ge. eGFR <60 mL/min/1.73 m2 is considered as "decreased". This equation should only be used for patients 18 and older. According to National [employer] on's Kidney Disease Outcome Quality Initiative (KDO QI) classification and 2012 Kidney Disease Improving Global Outcomes (KDIGO) Clinical Practi ce Guideline, the stage of CK D should be categorized bas ed on estimated GFR. Stage Description GFR mL/min/1.73 m21 Normal or h igh GFR >=902 Mildly decrease d GFR 60-893a Mildly to moder ately decreased GFR 4 5-593b Moderately to s everely decreased GFR 3 0-444 Severely decreased GFR 1 5-295 Kidney failure <15 [Au tomated message] The sy stem which generated this result transmitted ref erence range: >=60 mL/min/1.7 3 sq. m. The reference range was not used to interpret th is result as normal/abnormal . eGFR-JOSELITO (test code 107 See_Comment Normal e GFR: >= 60 = 14485-2) mL/min/1.73 m2N ote: The eGFR is calculated [...] bas ed on estimated GFR. Stage Description GF R mL/min/1.73 m21 Normal or h igh GFR >=902 Mildly decrease d GFR 60-893a Mildly to moder ately decreased GFR 4 5-593b Moderately to s everely decreased GFR 3 0-444 Severely decreased GFR 1 5-295 Kidney failure <15 [Au tomated message] The sy stem which generated this result transmitted ref erence range: >=60 mL/min/1.7 3 sq. m. The reference range was not used to interpret th is result as normal/abnormal . [facility]ALT2022-08-[facility] 15:52:51 Test Item Value Reference Range Interpretation Comments ALT (test code = 12 U/L See_Comment [Automated message] The 1741-11) system which ge nerated this result transmit mary reference range : <=41. The reference range was not used to interpr et this result as shavon l/abnormal. [facility]Alkaline [id number] 15:52:50 Test Item Value Reference Range Interpretation Comments Alk Phos (test code = 6768-6) 63 U/L 40-129 [facility] 15:52:49 Test Item Value Reference Range Interpretation Comments BUN (test code = 3094-0) 17 mg/dL 6-23 [facility]Album[facility] [id number] 15:52:48 Test Item Value Reference Range Interpretation Comments Albumin Lvl (test code 3.5 See_Comment [Aut omated message] The = 5070) system which ge nerated this result tra nsmitted reference range : 3.5 - 5.2 gm/dL. The refe rence range was not used to interpret this result as normal/abnormal . [facility]ucose [id number] 15:52:47 Test Item Value Reference Range Interpretation Comments Glucose Level (test code 119 mg/dL 70-99 H Eff ective 12/29/15, = 2345-7) the glucose reference inter vals have been updat ed based on [place] an Diabetes Associ ation guidelines (Standards of Medical Care in Diabetes 2016. Diabetes Care 2 016; 39: S13-S22).Fa sting blood glucose:Normal: 70-99 mg/dLImpa ired fasting glucose (increased risk for diabetes or pre-diabetes): 100-125 mg/dLDiabetes mellitus: >/=12 6 mg/dL Random bl ood glucose:Normal: 70-199 mg/dLNot e: Random glucose >100 mg/dL is associ ated with increased risk for diabetes Lab Interpretation (test Abnormal code = 80113-1) [facility] Aminotransferase 2022-01-12 15:52:46 Test Item Value Reference Range Interpretation Comments AST (test code = 25 U/L See_Comment [Automated message] The 1920-01) system which ge nerated this result transmit mary reference range : <=40. The reference range was not used to interpr et this result as shavon l/abnormal. [facility] HospitalElectrolyte [id number] 15:52:45 Test Item Value Reference Range Interpretation Comments Sodium Lvl (test code = 138 See_Comment [Au tomated message] 0312-2) The system [employer] generated this result transmitted ref erence range: 136 - 14 5 mEq/L. The refe rence range was not u sed to interpret this result as normal/abnor mal. Potassium Lvl (test code 3.5 See_Comment [A utomated message] = 2823-3) The system [employer] generated this result transmitted ref erence range: 3.5 - 5. 1 mEq/L. The refe rence range was not u sed to interpret this result as normal/abnor mal. Chloride (test code = 100 See_Comment [Auto mated message] 2074-0) The system [employer] generated this result transmitted ref erence range: 98 - 107 mEq/L. The refe rence range was not u sed to interpret this result as normal/abnor mal. CO2 (test code = 2028-02) 34 See_Comment H [A utomated message] The system [employer] generated this result transmitted ref erence range: 22 - 29 mEq/L. The reference r jackie was not used to interpret this result as normal/abnor mal. Anion Gap (test code = 4 See_Comment [Aut omated message] 20668-8) The system [employer] generated this result transmitted ref erence range: 4 - 14 m Eq/L. The reference r jackie was not used to interpret this result as normal/abnor mal. Lab Interpretation (test Abnormal code = 53012-1) [facility].Serum [id number] 15:52:44 Test Item Value Reference Range Interpretation Comments Creatinine (test code = 2160-0) 0.52 mg/dL 0.67-1.17 L Lab Interpretation (test code = Abnormal 60272-5) [facility] HospitalDifferential2022-08-11 15:30:07 Test Item Value Reference Range Interpretation Comments Neutrophil % (test code = 60.6 % 42.0-66.0 770-8) Lymphocyte % (test code = 21.0 % 24.0-44.0 L 736-9) Monocyte % (test code = 12.9 % 2.0-7.0 H 5905-5) Eosinophil % (test code = 4.0 % 1.0-4.0 713-8) Basophil % (test code = 1.1 % 0.0-1.0 H 05591-9) IGRE % (test code = 0.4 % 0.0-0.4 IGRE % c ount 07150-7) includes Metamyelocytes, Myelocytes, and Promyelocytes. Neutrophil Abs (test code 1.65 K/uL 1.70-7.30 L = 751-8) Lymphocyte Abs (test code 0.57 K/uL 1.00-4.80 L = 731-0) Monocyte Abs (test code = 0.35 K/uL 0.08-0.70 742-7) Eosinophil Abs (test code 0.11 K/uL 0.04-0.40 = 711-2) Basophil Abs (test code = 0.03 K/uL 0.00-0.10 704-7) IG Abs (test code = 0.01 K/uL 0.00-0.04 39451-7) Lab Interpretation (test Abnormal code = 82712-4) [facility] [place].[id number] 15:30:01 Test Item Value Reference Range Interpretation Comments WBC (test code = 2.7 K/uL 4.0-11.0 L 6690-2) RBC (test code = 789-8) 3.71 See_Comment L [Au tomated message] The system [employer] generated this result transmitted ref erence range: 4.50 - 6 .00 M/uL. The refer ence range was not u sed to interpret this result as normal/abnor mal. Hgb (test code = 718-7) 9.9 See_Comment L [Au tomated message] The system [employer] generated this result transmitted ref erence range: 14.0 - 1 8.0 gm/dL. The refe rence range was not u sed to interpret this result as normal/abnor mal. Hct (test code = 31.8 % 40.0-54.0 L 4544-3) MCV (test code = 787-2) 86 fL 82-98 MCH (test code = 785-6) 26.7 pg 27.0-31.0 L MCHC (test code = 31.1 See_Comment [Automate d message] 786-4) The system [employer] generated this result transmitted ref erence range: 31.0 - 3 6.0 gm/dL. The refe rence range was not u sed to interpret this result as normal/abnor mal. RDW-SD (test code = 54.7 fL 35.1-46.3 H 45463-2) RDW-CV (test code = 17.7 % 12.0-15.5 H 788-0) Platelet count (test 102 K/uL 140-440 L code = 777-3) MPV (test code = 10.7 fL 4.0-10.4 H 61436-8) INRBC (test code = 0.0 % See_Comment The INRBC (instrument 18472-9) NRBC) value ref lects the enumeration of nucleated red b lood cells contained in a 200uL sampleof whole blood analyzed by the instrument. Thi s value maydiffer from the NRBC value repo rted in a manual differential,wh ich is based on a 100 cell differential. [Automated mess age] The system whic h generated this result transmitted ref erence range: <=0.0. T he reference range was not used to int erpret this result as normal/abnormal . Lab Interpretation Abnormal (test code = 36134-0) [facility] HospitalBlood [id number] 09:11:21 Test Item Value Reference Range Interpretation Comments Final Report (test No growth code = 8488) Path Review - Culture yield may be Bottle/Isolator affected by sample (test code = 8499) quality, prior treatment, and transportation conditions....The results have been reviewed and electronically signed by Pathologist:Amaury Sinha MD, PhD #[id number] PEDRO LUIS (test code = Short draw may invalidate PEDRO LUIS) quantitative blood culture results. [facility] HospitalUrine [id number] 01:10:07 Test Item Value Reference Range Interpretation Comments Final Report (test No growth code = 8488) Path Review - Urine The results have been (test code = 8483) reviewed and electronically signed by Pathologist:BERTA BRADY MD #[id number] [facility] HospitalUrinalysis w/Microscopic if Cfvrimkqw7423-84-59 03:33:41 Test Item Value Reference Range Interpretation Comments UA Color (test code = Straw Straw-Yellow 51732-5) UA Appear (test code Clear Clear = 5767-9) UA Glucose (test code NEG NEG mg/dL = 5792-7) UA Bili (test code = NEG NEG 5770-3) UA Ketones (test code NEG NEG mg/dL = 5797-6) UA Spec Grav (test 1.049 1.003-1.035 H code = 5810-7) UA Blood (test code = NEG NEG 5794-3) UA pH (test code = 7.0 5.0-9.0 5803-2) UA Protein (test code NEG NEG mg/dL = 5804-0) UA Urobilinogen (test NEG NEG code = 5818-0) UA Nitrite (test code NEG NEG = 5802-4) UA Leuk Est (test NEG NEG code = 5799-2) UA Comment (test code See Comment No nathan roscopic exam = 70535-1) performed, physiochemical findings are ne gative Lab Interpretation Abnormal (test code = 63901-0) [facility] Glucose Ybscab0759-31-53 03:28:58 Test Item Value Reference Interpretation Comments Range POC Glucose (test 129 mg/dL 70-99 H RN Notifie dCapillary code = 44097-2) blood sample s, e.g. obtained by fingerstick, ma y have inaccurate resu lts in patients with decreased perip heral blood flow. Met hod description: Al l results are toan sured using Electroch emistry test methodolog y. The glucose in the sample mixes with the reagents on the test strip. The reac tion produces an bart ctric current. The am ount of current produce d is proportional to the glucose concent ration in the blood. PO Sample Type (test Capillary code = 9554) Performing Lab (test MDA Main Main [facility] code = 50480) [facility] MD [facility], [address] [facility], [place], [place] [address]; Radio Assembler: Paty Chavez MD Lab Interpretation Abnormal (test code = 00992-6) [facility] HospitalABG2022-06-17 02:55:19 Test Item Value Reference Range Interpretation Comments pH Art (test code = 7.41 7.35-7.45 Results are 2744-1) corrected for a body temp of 37C. pCO2 Art (test code = 51.0 See_Comment H [Auto mated message] 2019-01) The system [employer] generated this result transmit mary reference range : 35.0 - 48.0 mmH g. The reference r jackie was not used to interpret this result as normal/abnormal . pO2 Art (test code = 31 See_Comment A [Autom ated message] 8603-7) The system [employer] generated this result transmit mary reference range : 83 - 108 mmHg. The reference range was not used to interpret this result as normal/abnormal . HCO3 Art (test code = 32 mmol/L 21-28 H 1959-) Base Excess Art (test 6 mmol/L -2-3 H code = 1925-7) O2 Sat Art (test code = 58 % 95-99 L 2708-6) Lab Interpretation (test Abnormal code = 74423-1) [facility] HospitalNT-Pro BNP (In-House)2021-11-18 02:28:46 Test Item Value Reference Range Interpretation Comments NT ProBNP (test code = 168 pg/mL See_Comment H [Aut omated message] 36765-3) The system [employer] generated this result transmit mary reference range : <=125. The refe rence range was not u sed to interpret th is result as normal/abnormal . Lab Interpretation (test Abnormal code = 28662-2) [facility] HospitalCardiac Zdchh9151-27-92 02:26:11 Test Item Value Reference Range Interpretation Comments CK (test code = 2157-6) 50 U/L 39-308 CK MB (test code = <2.0 See_Comment [Automat ed message] 37731-1) The system [employer] generated this result transmitted ref erence range: <=10.4 n g/mL. The reference r jackie was not used to interpret this result as normal/abnor mal. Troponin T (test code = 36 ng/L See_Comment H < 19 ng/L Suggest 23111-0) retest at 3 to 6 hours later to rule o ut myocardial infa rction >= 19 to <=52 n g/L Possible myocar dial injury. Suggest retest at 3 hours. - a change of < 20 ng/L, retest at 6 rafael rs - a change of >= 20 ng/L, suggestive of myocardial infa rction > 52 ng/L Sugge stive of myocardial infarction Crit ical value will be r eported when cTnT is > 52 ng/L and only report ed for the first in a series. Hemolyzed speci mens with Hemolysis Index >100 (100 mg/dl or moderate hemoly sis) may cause interferences a nd falsely low res ults. [Automated mess age] The system [employer] generated this result transmitted ref erence range: <=18. Th e reference range was not used to int erpret this result as normal/abnormal . Lab Interpretation Abnormal (test code = 55430-7) [facility]COVID-[facility] (SARS-CoV-2)Obmujvrbifyp-[id number] 20:55:07 Test Item Value Reference Range Interpretation Comments COVID19 Not Detected Not Detected (SARS-CoV-2) (test code = 34430-4) COVID19 SARS Pre-OR Procedure Indication (test code = 62953) Covid 19 Comment See Note The rufino S ARS-CoV-2 (test code = [place] [address]) use on the dharmesh s Alyson System is a gem l-time RT-PCR assay in tended for the qualita tive detection of SARS-CoV-2 (COV ID-19) viral RNA in nasopharyngeal swabs from either individuals sidney pected of COVID-19 by their healthcare prov ider or from any individual, inc luding individuals wit hout symptoms or oth er reasons to susp ect COVID-19. A fac t sheet for patie nts provided by the sap ppm consultant ([employer]) can be rev iewed at: https://www.fda .gov/m edia/505491/denys nload. A fact sheet fo r Health Care pro viders is provided by the sap ppm consultant ([employer]) and can be reviewed at: https://www.fda .gov/m edia/396228/denys nload Results must be interpreted wit hin [...] high-comple xity tests. The Microbiology Laboratory at [facility], CLIA Accreditation #[id number] and CAP Accreditation #[id number], verif ied the performance characteristics of this assay. Int ernal controls are us ed to monitor all sta ges of the test proces s. [facility] HospitalMagnesium [id number] 20:26:52 Test Item Value Reference Range Interpretation Comments Magnesium (test code = 73092-5) 1.9 mg/dL 1.6-2.6 [facility] HospitalPhosphorus [id number] 20:26:48 Test Item Value Reference Range Interpretation Comments Phosphorus (test code = 2777-1) 4.1 mg/dL 2.5-4.5 [facility] HospitalProcalcitonin (PCT)2021-11-17 20:26:40 Test Item Value Reference Range Interpretation Comments Procalcitonin (test 0.07 ng/mL See_Comment Procalci tonin > 2.00 code = 70142-1) ng/mL: Proca lcitonin levels above 2. 00 ng/mL are highl y suggestive of a high risk for system atic bacterial infec tion/ severe sepsis a nd/or septic shock. Procalcitonin < 0.50 ng/mL: Procalci tonin levels below 0. 50 ng/mL are at lo w risk for progression to severe sepsis a nd/ or septic shock. Procalcitonin ( ProCT) between 0.15 an d 2.0 ng/mL do not ex clude infection, daisy use localized infec tions (without system ic signs) may be associated with such low levels. Res ults greater than 40 0 ng/mL may not b e reliable due to the matrix effect w ith extended diluti on as it exceeds the sap ppm consultant's recommended krishnamurthy it. Caution should be exercised when interpreting gomez ch values and done in conjunction wit h clinical contex t. [Automated mess age] The system [employer] generated this result transmitted ref erence range: <=0.08. The reference range was not used to int erpret this result as normal/abnormal . [facility] HospitalaPTT2022-06-16 20:15:38 Test Item Value Reference Range Interpretation Comments aPTT (test code = 30.0 See_Comment [Automate d message] The 50806-6) system which ge nerated this result transmit mary reference range : 22.8 - 34.2 second(s). The reference range was not used to interpr et this result as shavon l/abnormal. [facility] HospitalProthrombin Time with [id number] 20:12:32 Test Item Value Reference Range Interpretation Comments PT (test code = 5902-2) 14.2 See_Comment H [Au tomated message] The system [facility] generated this result transmitted ref erence range: 11.5 - 1 3.9 second(s). The reference range was not used to int erpret this result as normal/abnormal . INR (test code = 6301-6) 1.18 0.90-1.10 H Lab Interpretation (test Abnormal code = 04579-7) [facility] HospitalPOC VBG+[id number] 19:44:24 Test Item Value Reference Range Interpretation Comments POC VB pH (test code 7.44 7.31-7.41 H = 6719) POC VB pCO2 (test 48 See_Comment [Automate d message] code = 6718) The system ic h generated this result transmitted ref erence range: 41 - 51 mmHg. The reference r jackie was not used to interpret this result as normal/abnor mal. POC VB pO2 (test 23 mmHg code = 6720) POC VB TCO2 (test 34 See_Comment H [Automate d message] code = 7-1) The system [facility] generated this result transmitted ref erence range: 24 - 29 mEq/L. The reference r jackei was not used to interpret this result as normal/abnor mal. POC VB Bicarb (test 32 mmol/L 23-28 H code = 80875-6) POC VB Base Ex (test 7 mmol/L -2-3 H code = 1927-3) POC VB O2 Sat (test 41 % code = 2711-0) POC VB LAC (test 0.8 mmol/L 0.9-1.7 L Method desc ription: code = 2519-7) The i-STAT is an analyzer used f or in vitro quantific ation of various anal ytes in whole blood. The device uses a s lindsey disposable cart ridge which contains microfabricated sensors, a calibration che ution, fluidics system , and a waste chamber . Each test cartridge contains chemic ally sensitive biose nsors on a silicon webtide ip that are config ured to perform spec ific tests. The microfabricated sensors measure analyte concent ration by an electroc emical assay. POC Sample Type Venous (test code = 6690) POC Clean Dev (test Yes code = 6672) Performing Lab (test MDA Main Main Ca mpus code = 99099) [facility] Cli nical Lab, [address] [place] [id number]; Radio Assembler: Paty Chavez MD Lab Interpretation Abnormal (test code = 72173-7) [facility] CenterPath[facility] Surgical Interpretation 2021-11-12 12:56:20 Test Item Value Reference Range Interpretation Comments Submitted Clinical History [id number] (test code = 45260) VmbGFuZzEwMzNcZnRu YmpcdWMxIHtccnRmMV fmr2MhR9ZoLdFxQDpx bnNpXGRlZmxhbmcxMD KhUNC9luTaOYDfTWqn HHQqFWjfHo8saFJtpS zbFhNjDCMsc0zwagVV lsmoaGl5e5tkREPeZe A6lLPmFWjuW4holxWo aYWjEAWaPWn7hZ53SE UwnT4wfGPfUXrvzmKf JdZ4SVvtJADdQwX4BR GzxFQsBGTyV3uyPPHj XGdyZWVuMFxibHVlMC P4mYyhs6V7lKQpzKIc dHtcZjBcZnMyMiBOb3 YdNIh0jPlfB2NeYFPq SoR9wCUbVFVdWDvaWP WnYNDpucW8fR00RWcy rvE1vVVxk1Ram93kx7 17bB7tzCZhXBY0ZXSp SXQtvKCsURHlAQU4BS GhwOIaH4xwZTVhBS5w cmdyMTgwMFxtYXJndD M6BTNaaBIlF6EcRZOt PEgyMYWuenh2TjWxEy 4wjBKfxDepBAcqs5eg b2qgaLXqIat2LTCrWh KkKmquFKuzv4Mgn8ri GTOdij8yQSO1aLIfwV ngn7L9dOWvMBLpdOIj rpItBHNpOpM0LTvvBC 9ujg69YCQxZOX6ec6c bGNccGdicmRyaGVhZF wzO1MyCSWpw849NWCt R4FtNYVem0S1itFwNf KkPXCkhMW9arA8YHOl WSh3bSYgjmL6reMmlC YxD5cwzZ7gYCWaAC0p vvvsq6euTGkyBDxmQV XtqCU4deB9UUZbuERn X4EyiZ4lTUWjTGotFQ Omkrq0JuEhKu3dbEJt eTcyMFxzYmtwYWdlXH BnbmNvbnRccGduZGVj XHBsYWluXHBsYWluXG YwXGZzMjRccWxccGxh dF0iSgEiIyRwSMjlQZ 2kRUByY4ikmNPaAYPx NZMmY9ahIvRrsW3anU frNHubeuWdMUJ9y5Ej JLPxZP9toFGceNhdal jkh7Vql3IwB5mzaKOi IFtSMDYuMDBdXHBsYW luXGYxXGZzMjJcbGFu ZzEwMzNcaGljaFxmMV ilQxHnCMTlPTxtH8kd EtWkTbWsEwqdGCN6gR == Diagnosis (test code = 34) n7pbpYWuEGOcaUL7SC IdOHLux2knj3XwjBUm cGFyXGpleHBhbmRcbm 07jIK0qJ79SA1qHIWe NlD2BUXwphC7Vej8JQ EwAFRhaANkT456s8oz o7ywzoTooKD2GHLgTU GmT7LfKY0jHSMkoSDw A74sfNPjLHM2UCMaPJ ZivJYdAGNeJJY3KSPw dAVjC3owZFUrZI7qqb dyMTgwMFxtYXJndDE0 CJMdrRBxK8FsCIIbAJ tfZQTewur1MkUwZt5u dGVyeTcyMFxwYXJkXH CvOBuvWUZcIrAsD4Lt RFM9PY91yCBxSJEeBL T1iALrwLUyi75mzLJd KWGrKD7pz8N9QTZhth yvySlbQPyqkD55GuMn G3LtRIGjRPijPQ43pw BvZiBoeXBlcmtlcmF0 l0KdAsOjoWQtmK23xh KcfTItg0Lwv9w7pFXy vWaoREF5v1XcPUNvNK 5ccGFyXHBhcmRccGFy VFoKVI2HXI0bwRRfyD == Gross Description (test v9gmrXDtSYNoyQAXMF code = 9504569213) kwMVxhbnNpXHNwbHRw L0VrdbgiPCrgTV2vIK 6dmJgszYCpuPDaTJ4Q XGRlZmYxXHBhcGVydz EyMjQwXHBhcGVyaDE1 LZHpNT5jojdrSXljZB ehUQLhvuW7TKDwoOQh Y4OvPEDqMJ1rvgveOT U2OAelhK2hxfNDVhgf Kz0ylFHdrRxkBdElDx NoYXJzZXQwXGZuaWwg AKCdIHs3fB8CCwkyQ0 0fn3Y6Fce6KSAbCTMn Z4MoBQ9rKGFzsNZaW2 6GVqsyONS7ZKHCEcme IXRdEM3Co6ozZEBewO VwQUH6CTtetQPlVYHw ZHEnXMg5ZQEzKHqmgW PbTF8hrFosAnlchLxt n7ZmxSObMCzqMSQiSG FrSRxdVLXcCH3CDiVo KIQsXPP0VjZhHAk6HM p9NP6HUuPtCAGrDOAe Gnx4QFPvXWl0MQarKP 0TLWGjCDs3Bkq0DaWh XYVmSgLhSPb7ZBXcVO xmIEFyaWFsIFxcZnMg MTAgXFxmYiBcXGZsIF cbhcL6UWSnEGqfRLPt ZnMyMCBBOlxwYXIgDQ hlnGuogQ2mVMHjL24b n0HGc3DbBE0ILNh7io NuaazgjA8iFIPljdSk LPpftWZdA9fjRuqyBq FcZnMyMCBPdGhlciwg Q7IgbtxiOCfqTYFzcX mwK0YvwRNcZDMfBP5l ED4pJCZ1VLHnQZEsAU EfNZYebAyloILhh57z cYrhyUvfT0JbJN3iVW Blwi4axG2hRTEdZpFa aAszw6MpFBkiWdByfY HlLtLrfINfDxWdR84a aV8gGNdxodApFYIjTH BhcmUgaWRlbnRpZmll JKhiHA5uWNJplIpjUD c1LXN3Uc2csPQfYJBj eyJEFBHfv6ZlYjNaly SoKWWaGGksx7Vvcp0k GWkybn48GSM4s5xcnL VsZHtcKlxmbGRpbnN0 IEhZUEVSTElOSyBuYW 1lPUxJTktCRUdJTnwy YSHpLcmfpMSWKPB1CJ iwaHjzgRf5h8zxrBWp r0q6CGmuMWC2cXNYl1 xmaWVsZHtcKlxmbGRp uhK3KMtVJGPAOYgGTh MySP6iICmTHoeYVqL6 GbPqGOI0VAeQQ3SAzJ A8Jrb9ILr7zMtqOeec lzQtbXJgMwEUiC1jiQ pptU9sgGWmX9suYkCi MCANClxlcGljTmVzdE KgEiVajoZ5UVLnlIWs IDX2XS3hSTTvfuysUV MpTEKjNUX1JLjvpT78 bHQwXGZzMTZccGFyfV qgyMScuyTFSzqlhT1a ZiAgm3sypVc5QKIZXg oedYHeiuwpkyZ4EWHn r7krpRyyv4ColXJySM 6orDucmP1vSsNqPdJJ Cn0= Intraoperative Evaluation y7mtlRThPHQunKDWLT (test code = 4367731530) kwMVxhbnNpXHNwbHRw G8AuabzeQIkqGB2uYB 6zyEzkeHQohOCpQU4I XGRlZmYxXHBhcGVydz EyMjQwXHBhcGVyaDE1 QCNdQC1whcamGXcbOR lvLQKbgfX2HDCphDVi X7SgUTYkFP0imhubNT A9HYkbuY8iemVJFbzd Vu0usCEeoFhfToUwXs NoYXJzZXQwXGZuaWwg BABbGQd0sP1TNjwpO3 3ye1W5Bbe0COWgDRTq A2VzIM3aTGXyfLKiX9 4FFxpiYCB2AZTDKzik INFfEX9Px9jzNTCwvU MjPUX8LGehaUMgCRCw WQFsQNn9JHYxGFehsT AlDJ8zuYwuBxevoXga v3SfkYEsFNwuPSHbXT ZtGZsgRNGzDF5TFhVd GUWjLCK3HlWzYBg0MD b2PK1WNeWfARKiTLPq Osh3LXMoARp0OXyjYP 8LFSHtPNy7NTguWFWp YJWlVaYoVEi7USXcQT xmIEFyaWFsIFxcZnMg MTAgXFxmYiBcXGZsIF vasxO0INBqZUjaSEDs ZnMyMCBBOlxwYXIgDQ lpaUtxpD3wDIFgR44q v6LZr8LuVC5QELg2jz IoyhlgsY8lWCYhvqMu RXhrpOJmF6riPjvvKp FcZnMyMCBPdGhlciwg F5AvbmyaXAgyKBPphH lyF8IosGKrVATdUA2p ZL4aLNR8UBNssfTSOq chbTzgNLksxU90CpHp WEroOjYsC7NsPGWwTY jrUC09enPvEuCwsUHy hpWeIWC1jPMlf7Y8PE 8jvOPpOAEgcTzfoJx9 mKB6xERpQCMvaQHbTV erVrxjwF5pvBfjva3e JA8eKI8adnuaoMEoK1 YoY4hlq08zMB6aIAtb W1fmT9XeJVIuh7R4IK 1hcFChXHqhoAeyy9vs MnBXJy3AWCPkCseujj 75NYI1v3pzsUOpICti KzafrIAqweP1GZdOYJ BCFPwFGlKmJO9rGMyQ TktCRUdJTnwyMTAxNn ewkPTFAYJ8UBnhmJbt cWi1u8lcyWQyp3l0AV iyBRJ7wTzIb2nnrLWt SWsvAepgaBGbvtG9ZM dTJXIZSXmLZfAwCS5d VVtTJsbDAnS3QzEcKA D9TKvDW7RJsNI8Ghb3 BKm0bTslGpmwtnDwsF RiTxNHkG4xuCkdxR8d kVKeU3akCzPaEDMZSt xlcGljTmVzdERvYzBc frO5MWFzyIMaIUN4XJ 5kXHBhclxwYXJkXHNs KLB4WJrfdP60hQKwGC ZzMTZccGFyfVxwbGFp mgMRVsthLSHhOWm2dv TetucjnW6yBmWcUNuv gYbkqN0wEvGzTet4IT nwZDPlF9QxN7PfqgJ2 XHBsYWluXGZzMTYgDQ p9 Disclaimer (test code = x4vboPOnMGMcoDGkTy 9844) RiUSMxNGIsq5ctFTGk bGFuZzEwMzNcZnRuYm bmqKEdRRYuOcQku4gb a721kXJcf4jhWPCnHq V7qUBgSYRjeVJfP865 OMJbGNbqy3jmj3YaWM TrhURgm3G3MDCOivml sIb8qXkbB29fw1Q6Yb pqH6eyDUIwQNFlH3Kq UY0aLSDkYhb2GXN8FQ V8PIZmKKAmK7RnKS9y WWCimYFmNBu9d8avtQ bqLGQiNKT7y5wbJXxi pdXwMF5jat7mwCk4e8 xjczEgRGVmYXVsdCBQ CCBwL8IhaMawHe7udQ b8fSrjKvijESD2Luh6 JM9dgr49wta5cBstYO BjpjgvKzN8TDxwLUFp xieyNHj1YPdhAXAvzK J4RYYkjULeG4PrBNWk OW5xrou5VDP8LQpeOM JpUaF1SENzeBJmGRAr iYztKHbba315HYN6Or JbRE4yA5Cvk4W0bR8o aXRcZGVmdGFiNzIwXG Wxsh8tmHByXJoci0Vq FCZ3uzU7cFRpmPWbVP FoJQ62Ksdso6BnCxll DZB5YAFwzwGee2Jcw8 zoBsDjhyTdQ0riP1Ot ZHJoZWFkXHBnYnJkcm Apx6Xsp2WgvDVixKs2 y9ypOHTdGJVcoJudv0 fzSNX6XHClJ7P8uDLv w5kaJZlpWGJvcYS1mx J9PPFycHRqU1FtuV5u XTTlXE3spcs8o2coGD Y4JXtbGLByLpY1wbO1 NDBcaGVhZGVyeTcyMF smv568GSU0XaHnZROy l3HaM6EbjKjiO79isM xgC38bJLMraSfngF3a iJbzwM5vHgDnZuDcMO xxbFxwbGFpblxmMVxm laC7FEuiqtucXPRqFQ vwQ8rvYiLoRQIjdJqa UInyn0MoOKJtFTPaTi ajtwB0XPZLy92pEUBz x7VzTOSwtA0bcACzTW bmgpEidHO6NMkmonLw AcFvbaFfCQHqdF8kIN KpOZ7bPUAztcQrxm4z bbQpRTMbYHKwP6Rgsv cwqOpwwjPlRKNvpk1w kkHwHES9CSWPNS0YEV NaJMTix41rSVIrdApy vV0ycAUntcRrHAHfe7 AhhU9cuOJZDJTdV9yj FP0pQLnkp6WluQNglG LzsWO4BWCqq6GbQkQf woOshWNuoKAsA6HtjL ujV8reVJBcCCGaprUn tSAif0EwWWErtWP6qS RqNN0LTkTKv80mMSDc ZCBEcnVnIEFkbWluaX O5ovE4xO4uOpJHMqKh cHBsaWNhYmxlLCBjb2 60di2igwB7ATOrQGRb zdwim6DaIYCxITSjaH 94QREdTEWhkf2jwplo uTQimdHxK1Vlnab7aZ 4iXHBsYWluXGYxXGZz MjJcbGFuZzEwMzNcaG ljaFxmMVxkYmNoXGYx TPczO5gyPjEhYnTeLu xwYXJ9 [facility] [id number] 20:09:31 Test Item Value Reference Range Interpretation Comments Sodium Lvl (test code 138 See_Comment [Auto mated message] The = 2951-2) system which ge nerated this result tra nsmitted reference range : 136 - 145 mEq/L. The refe rence range was not used to interpret this result as normal/abnormal . [facility] 2021-11-10 14:19:24 Test Item Value Reference Range Interpretation Comments Ordered (test code Test Not Added dupflipa te see = 0140) [phone], confirmed w/ Ta kaur Mcghee. 2021 9:19:15 AM CDT jpa Test Needed (test NT proBNP code = 7604) [facility]Jose, DLCO, LV) 2021-11-07 00:00:00 Test Item Value Reference Range Interpretation Comments FVC (L) pre (test code = 2.541 L 2.731-4.336 L 9507) FEV1 (L) pre (test code 1.528 L 1.884-3.240 L = 9505) FEV1/FVC (%) pre (test 60.131 % 63.513-82.869 L code = 9509) DLCO_SB ml/(min*mmHg) 4.660 See_Comment L [Auto mated message] (test code = 9515) The [employer] which generated this result transmitted ref erence range: 6.530 - 23.117 ml/(min*mmHg). The reference range was not used to int erpret this result as normal/abnormal . DLCOc_SB ml/(min*mmHg) 5.600 See_Comment L [Aut omated message] (test code = 9516) The [employer] which generated this result transmitted ref erence range: 6.530 - 23.117 ml/(min*mmHg). The reference range was not used to int erpret this result as normal/abnormal . TLC (L) (test code = 7.195 L 4.952-7.255 9513) RV (L) (test code = 4.649 L 1.841-3.190 H 9514) RV/TLC (%) (test code = 64.614 % 33.058-51.022 H 9517) FVC (% pred) pre (test 72 % code = 9520) FEV1 (%pred) pre (test 60 % code = 9518) FEV1/FVC (% pred) pre 82 % (test code = 9522) TLC (% pred) (test code 118 % = 9526) RV (% pred) (test code = 185 % 9527) RV/TLC (% pred) (test 154 % code = 9528) DLCO_SB (% pred) (test 31 % code = 9529) DLCOc_SB (% pred) (test 38 % code = 9530) Lab Interpretation (test Abnormal code = 21697-0) [facility] [id number] 14:14:06 Test Item Value Reference Range Interpretation Comments ABORh Manual (test code = 882-1) O NEG [facility] HospitalClot Expiration Obef5172-14-83 14:14:03 Test Item Value Reference Range Interpretation Comments T & S Expiration (test code = 10/30/2021 5318) [facility] HospitalCalcium Ionized, Cvpwxf6127-39-52 10:15:06 Test Item Value Reference Range Interpretation Comments V Ion Ca (test code = 23624-2) 1.29 mmol/L 1.15-1.29 [facility] HospitalTMP Interpretation Antibody Screen Uehcphdq1487-05-34 14:09:29 Test Item Value Reference Range Interpretation Comments TMP Auto Neg At the present ABSC Interp time, patient (test code = plasma shows no ANTONY YUAN MD 7535) evidence of RBC - 48975Lpcms mary by: alloantibodies. MD Carri MANN [id number] Date/Time: 10.03 9:09 AM CDT Tra nscribed Date/Time: 10.03 9:09 AM CDTElectronical ly Signed By: MD Carri VILLEDA [id number] on 10.25.2021 9:09 AM C [facility] HospitalAntibody Hkcxiy5011-19-05 14:00:27 Test Item Value Reference Range Interpretation Comments ABSC. (test code = 890-4) Negative ABSC [facility] HospitalMRSA Screening Cgclqiy6017-77-83 23:31:12 Test Item Value Reference Range Interpretation Comments Final Report (test No Methicillin resistant code = 8488) Staphylococcus aureus isolated. Path Review (test The results have been code = 8492) reviewed and electronically signed by Pathologist:BERTA BRADY MD #[id number] [facility] HospitalHemoglobin [id number] 11:11:08 Test Item Value Reference Range Interpretation Comments A1C (test code = 5.3 % 4.3-5.6 HbA1c value s >=6.5% are 4548-4) diagnostic of d iabetes mellitus.Diagno sis should be confirmed by repeat testing.Therape utic Action suggested: >8.0 % HbA1c; Goal oftherapy: <7.0% HbA1c [facility] HospitalVRE Dytisnf0561-53-18 06:19:03 Test Item Value Reference Range Interpretation Comments Final Report (test No Vancomycin resistant code = 8488) Enterococci isolated Path Review - VRE VRE absent or below limits (test code = 8485) of detection....Culture yield may be affected by sample quality, prior treatment, and transportation conditions....The results have been reviewed and electronically signed by Pathologist:Amaury Sinha MD, PhD #[id number] [facility] HospitalPrepare RBC:G722, 1 Mxfzu3303-33-81 03:43:31 Test Item Value Reference Range Interpretation Comments PRBC Product Ready 1 Red Blood Cells (test code = Available - 15667-7) Order Form 03 when ready for product issue. Unit Number (test [id number] code = 7002) Product Code (test [id number] code = 7003) Unit Expiration [id number] (test code = ) Unit Blood Type 5100 (test code = 7004) Product Code Text RBCIRLR Aph ACDA AS1 (test code = Bag 1 ) Crossmatch [id number] Expiration Date (test code = ) Unit Irradiated IRRADIATED (test code = 705155) Dispense Status ISSUED (test code = 700) Unit Blood Type O Positive (test code = 7005) Product [facility] .BPAM ____ Location (test ___ code = 085727) ___ ____ [facility]TMP Spfhwtbou0080-57-69 21:00:31 Test Item Value Reference Interpretation Comments Range TMP Exception Patient O Rh Neg Interp (test transfused with O code = 7544) Rh Pos blood due to BELA TRIMBLE unavailability of MD Carri HUMPHREY Rh compatible [id number] by: MD Carri Colin [id number] Date/Time: 10.02 16:00 PM CDT Transcribed Rohan e/Time: 10.20.2021 16:0 0 PM CDTElectronical ly Signed By: MD Carri BILLINGSLEY 143 on 10.20.2021 16:0 0 PM [facility]TMP Interpretation Crossmatch 2021-10-20 20:53:37 Test Item Value Reference Range Interpretation Comments TMP XM Interp RBC units (test code = crossmatched for 7566) transfusion appear GEORGE lópez. 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 [facility] HospitalLactic Acid, Vfbdcg4153-03-42 21:15:17 Test Item Value Reference Range Interpretation Comments V Lactate (test code = 2519-7) 0.5 mmol/L 0.5-1.6 [facility] HospitalComplete Blood Count w/o Xwqdxacrpiew6037-12-23 18:42:21 Test Item Value Reference Range Interpretation Comments WBC (test code = 5.3 K/uL 4.0-11.0 6690-2) RBC (test code = 789-8) 2.95 See_Comment L [Au tomated message] The system [employer] generated this result transmitted ref erence range: 4.50 - 6 .00 M/uL. The refer ence range was not u sed to interpret this result as normal/abnor mal. Hgb (test code = 718-7) 8.2 See_Comment L [Au tomated message] The system [employer] generated this result transmitted ref erence range: 14.0 - 1 8.0 gm/dL. The refe rence range was not u sed to interpret this result as normal/abnor mal. Hct (test code = 25.5 % 40.0-54.0 L 4544-3) MCV (test code = 787-2) 86 fL 82-98 MCH (test code = 785-6) 27.8 pg 27.0-31.0 MCHC (test code = 32.2 See_Comment [Automate d message] 786-4) The system [employer] generated this result transmitted ref erence range: 31.0 - 3 6.0 gm/dL. The refe rence range was not u sed to interpret this result as normal/abnor mal. RDW-SD (test code = 47.8 fL 35.1-46.3 H 23240-0) RDW-CV (test code = 15.3 % 12.0-15.5 788-0) Platelet count (test 138 K/uL 140-440 L code = 777-3) MPV (test code = 10.5 fL 4.0-10.4 H 84511-0) INRBC (test code = 0.0 % See_Comment The INRBC (instrument 03643-4) NRBC) value ref lects the enumeration of nucleated red b lood cells contained in a 200uL sampleof whole blood analyzed by the instrument. Thi s value maydiffer from the NRBC value repo rted in a manual differential, ich is based on a 100 cell differential. [Automated mess age] The system [facility] generated this result transmitted ref erence range: <=0.0. T he reference range was not used to int erpret this result as normal/abnormal . Lab Interpretation Abnormal (test code = 07206-2) [facility] Cancer [facility] [id number] 18:24:06 Test Item Value Reference Range Interpretation Comments POC AB pH (test code 7.38 7.35-7.45 The i-S TAT is an = 2744-1) analyzer used f or in vitro quantific ation of various anal ytes in whole blood. The device uses a s lindsey disposable cart ridge which contains microfabricated sensors, a calibration solution, fluid ics system, and a w aste chamber. Each t est cartridge conta ins chemically sens itive biosensors on a silicon chip th at are configured to perform specifi c tests. The microfabricated sensors measure analyte concentration b y an electrochemical assay. POC AB pCO2 (test 54 See_Comment H [Automate d message] code = 2019-01) The system [employer] generated this result transmit mary reference range : 35 - 45 mmHg. The reference range was not used to interpret this result as normal/abnormal . POC AB pO2 (test 82 See_Comment [Automated message] code = 1453-7) The system [employer] generated this result transmit mary reference range : 80 - 105 mmHg. The reference range was not used to interpret this result as normal/abnormal . POC AB TCO2 (test 33 See_Comment H [Automate d message] code = 2025-3) The system [employer] generated this result transmit mary reference range : 23 - 27 mEq/L. The reference range was not used to interpret this result as normal/abnormal . POC AB Bicarb (test 32 mmol/L 22-26 H code = 1960-4) POC AB Base Ex (test 6 mmol/L -2-3 H code = 78629-3) POC AB O2 Sat (test 95 % 95-98 code = 2708-6) POC FiO2 (test code 30 = 46118-0) POC ABG Draw Site OTHER (test code = 39653-7) POC Taurus Test (test Performed code = 54988-2) POC Sample Type Arterial (test code = 6690) POC Clean Dev (test Yes code = 6672) Performing Lab (test [facility] [place] code = 53633) [facility] Cli nical Lab, [facility] [address], [place] [address]; Radio Assembler: Paty Chavez MD Lab Interpretation Abnormal (test code = 83719-2) [facility] HospitalPO Tsghhrhh6477-52-58 17:01:01 Test Item Value Reference Range Interpretation Comments POC Critical Comment See Note Test pe rformer notified (test code = 8955) Ordering Licensed Provider and /o r designee of POC AB pH critical Result s. [facility] HospitalUrinalysis with Microscopic 2021-10-16 01:59:18 Test Item Value Reference Interpretation Comments Range UA WBC (test code = <1 See_Comment [Automa mary 62893-3) message] The system which generated this result transmitted reference range : 0 - 2 /HPF. The reference range was not used to interpret this result as normal/abnormal . UA RBC (test code = 1 See_Comment [Automa mary 14828-6) message] The system which generated this result transmitted reference range : 0 - 2 /HPF. The reference range was not used to interpret this result as normal/abnormal . UA Mucous (test code NOT SEEN Not Seen-Trace = 47882-3) /HPF UA Bacteria (test OCC NOT SEEN /HPF A code = 08796-8) UA Squam Epi (test OCC None-Occasiona code = 24120-1) l /HPF UA Amorph Helene (test 2+ NOT SEEN /HPF A code = 06528-9) PEDRO LUIS (test code = Some reporting PEDRO LUIS) parameters within the Urinalysis test have changed due to the implementation of new instrumentation in the [facility], allowing greater sensitivity of measurement. Urinalysis results reported by the [facility] using existing instrumentation, as well as Urinalysis testing performed manually or by backup methodology at the Main [place] will remain relatively unchanged. New reporting parameters and units will now be reported for all campuses. Lab Interpretation Abnormal (test code = 01216-1) [facility] HospitalABORh2022-05-14 10:48:09 Test Item Value Reference Range Interpretation Comments ABORh. (test code = 882-1) O NEG [facility] HospitalTriiodothyronine2022-05-14 07:51:44 Test Item Value Reference Range Interpretation Comments T3 Total (test code = 3053-6) 72 ng/dL 80-200 L Lab Interpretation (test code = Abnormal 80426-9) [facility] HospitalLipase Oogxo6651-26-19 07:51:43 Test Item Value Reference Range Interpretation Comments Lipase Lvl (test code = 3040-3) 20 U/L 13-60 [facility] HospitalAmylase Hgzxc2729-17-31 07:51:42 Test Item Value Reference Range Interpretation Comments Amylase Lvl (test code = 1798-8) 28 U/L 28-100 [facility] HospitalThyroid Stimulating Hormone 2021-10-15 07:51:28 Test Item Value Reference Range Interpretation Comments TSH (test code = 4.27 See_Comment H [Automated message] 28603-4) The system [employer] generated this result transmitted ref erence range: 0.27 - 4 .20 mcunit/mL. The reference range was not used to int erpret this result as normal/abnormal . Lab Interpretation (test Abnormal code = 28505-4) [facility] HospitalLactate nutzvveiftiva7829-44-14 07:51:18 Test Item Value Reference Range Interpretation Comments LDH (test code = 232 U/L 135-225 H Results gre ater than 77213-9) 1651 U/L may no t be reliable due to matrix effect w ith extended diluti on as it exceeds the sap ppm consultant's recommended krishnamurthy it. Caution should be exercised when interpreting gomez ch values and done in conjunction wit h clinical contex t. Lab Interpretation (test Abnormal code = 93209-0) [facility] HospitalThyroxine Jmwz9174-29-21 07:51:17 Test Item Value Reference Range Interpretation Comments T4 Free (test code = 3024-7) 1.34 ng/dL 0.93-1.70 [facility] HospitalFibrinogen2022-05-14 07:49:55 Test Item Value Reference Range Interpretation Comments Fibrinogen (test code = 3255-7) 307 mg/dL 214-503 [facility] HospitalPathology Biopsy Interpretation 2021-08-31 21:40:26 Test Item Value Reference Range Interpretation Comments Submitted Clinical History x3rknLIpEVQdi0hgJYW (test code = 75230) mbGFuZzEwMzNcZnRuYm pcdWMxIHtccnRmMVxzc 8DoF6HdZdMvHApvduYi XGRlZmxhbmcxMDMzXGZ 0bmJqXHVjMVxkZWZmMH mxZa1fiRDcoMbfKpRmQ NRqh4uznyDUnpjjmNp9 p9hoJREhUgM1oQDgLMa qP5ydclAmaZKcKWVgTP g5fF32YKEulR9gsUHvJ EnfpwAnPiB9MTfdBUBi ObV1OXYgrRPqGUTsY4w yZWQwXGdyZWVuMFxibH JvSSQ0xHbxq0P5zZNut GVldHtcZjBcZnMyMiBO s0KxGTn0mFpjZ1KpOJK eVwT0xUJvFNHcUGliKQ EgWZGegqF9yB72EZelz dU3jZKma0Fri03sm976 xW6uwUFcLXC4DAGmMQX xlTNoILWwNUG3BBFyvZ ZbO8yyOAVjDA2emsetK AxxCLguGZTeoXD2XPVp wFDvG9SaVMPvLXxlBYY lthv2FaRoNs9afAYeyE ruZBpcd7nje4zsbKIpB uh0GXZkXlTaGeemWKhu k3Kzj4fpOFYsue9aLUC 4lXKjwOrky0A1tVUsGK NoaSUagvTnUIPrSgZ3N CirGA5ekf72KHQjHKP6 dn2guBHygMviytAbiXN oEClrW7GeWCXbn268IB StC5UwTYAfk7P7raWtZ lTzOQNwgUY1dwW4KIZw VPf1gYQbzcY1lvIeoPK rJ4grcZ6gOWJqCV8heu uco7suLJvoDGydQNGpd OE3isE7YFMokKBhL5Ev wV9kRUGtATgfSUVpasw 0NoVdMf7snFJxaUpeJY xzYmtwYWdlXHBnbmNvb nRccGduZGVjXHBsYWlu XHBsYWluXGYwXGZzMjR hmFekdGafhB5jCtSdNx KrKVpmWM8zFTXwX2cki DDeETYrBWLjK4guAbGx pB7okDarKBflhvZsNCs ij89qDDZycOLlME0pjT AdkkFblICfIA9fvYPeo Ttgmyouv7Lhz6LkY0cl bOMhWQeMLPHhDJ8skDr hwQ2sBdUzJnUhGwpaVV 1sFIKvS6pmbQCcCCOkN QFdC1kgAhFszZ8pxKaw MBykseVaLEGzuq24 Diagnosis (test code = 34) i6wiaVGnCXXqzXG7EdR zZVLdw0mhz7OdyBHllE KfHYmuvMLzzsKsum08y FW2aK94GB7nTPUyUuL5 MNZhfvO7Ida2ZNXsBOI bfQCfM802i0iyd2tuzx IhcTP8ZXLhZGDnF0ImZ A5iAHEkeLNpB20ilTGy RBS7RQEzUJRrcZTeVFT dZYA2YYNkqBJyQ4boHE IcYH7ezmdqQXerBAjzB UInvFG7UJXwiYRjP3Fm NQUgDBkcWUAwebz7KcI tZu1koVZpbYdtBIixTG JkXHBsYWluXGZzMjBcY 4TgXGW4FVH2y2KpyxSa RJKouT6qi2s6IWIacyr jjJaqMIhcdI01IeVaP6 ZlXBH8n4MlsdMeLS19G 53lTKY5zGVyLP6wVNHt ZJzif3H1tKFpODIie1I tYWxpdHkuXHBhclxsaT FefYaqGJvaHBMcN5ItJ HN8EDT9s23mH7xdXLoa a2LumOSkRG83boKcZXX dsN9zx1r3QVFdayzrgT gbPXircA24XeVfT4IwD EFudHJhbCBhbmQgdHJh azVpxXqveqAaTM74U37 mEOR4aVBqIXSdRMS8yY MxTWrip5Oaf0AptTp1N prgJIEeVd2iEDqkHVAq aWNvYmFjdGVyIFxpMCB vcmdhbmlzbXNcaSAgXG ljTUtKDnQea2EecC0mO O0aLGrhnKRocLnwAPih vME3SMHyNBZcTIMuZWA udGlmaWVkLlxwYXJcbG kwXGxpbjBccGFyXGNmM FPUKtIYtK9pATZnRPBf ZOV2gsgcIONgEKxnxp6 fgNqaaud1cHvvDmgfhU O6TbiiSLDliZa9KgDub AixMyTiAVUkWFSBwD3m vRGuH3zlfqDakL9bbPJ uXHBhclxsaTBcbGluMF hwCJBwZ4EmGMS0LCEcb C6xRDJzTNUhwBveGHTj LRp5ucFfOXogp1KsiEj gotU0FH3lQLWky0RifA FbbW4gnHUtKQHar7Fuc TpccGFyXGxpNzIwXGxp bjcyMFxjZjAgVHVidWx zjnVtTFAnd99iHlmuJJ JccGFyZFxwYXJ9 Gross Description (test d1purVOmLAGhkZNTKHz code = [id number]) wMVxhbnNpXHNwbHRwZ3 NwaomdSDxnJV8iKX9ri LkciGDbaAIrPA2TNHWo ZmYxXHBhcGVydzEyMjQ hJRVgvFJnuFW1ISPeHI 1hcmdsMTgwMFxtYXJnc yN9FROlzFJkM4IcHXLe EC8obeitWDD1LIxngA6 ebvGVUsbwTe3qrMXuvB tcZjFcZmNoYXJzZXQwX IOgtAiwQRRhVFm2kJ8H FoyvY77pi3X8Stl0DKN dBRFvQ0BmKW6kTJYxkU XeM24PDepfRYM4SJWTN mjwXBOlFX8Vy7whMZHc bFDgCVP9GGvaeJKfQHG uNNZzFUw2KQNuFZgdkJ CfEW1mfWhlGmfgvZaxf 2VjdCBcXGlkIDUxMDAy AXjnLIDvAC4SOzTkSIL lCNKxKMtuCVn3QYk6GP 5OLmUfNQTcNVH3SAB9U YLbZJh5UXrrED7ETJJv ZTN4ZCdqPTMzMAFfYeV pXMk9SHXaNFzeQOKfrI FsIFxcZnMgMTAgXFxmY eMpOGMkGZjopaV6OYWd YWluXGJcZnMyMCBBOlx lCPRkXJzgdUilhY8vVG HsJ73xo1DDu4GlLI6DQ Tv7phKnbkxpdG3sIXGt tdEwNHeafHBfK9moMmb lGyHeKhQeWTHMqB5xYA 97fXmnCECqUPKybM22Y STbYPJpHAFzHgPnt1N2 WOToieQ3xKTxsDTbAxD rA88oulCdDTZwKeGuY7 1tUTTdPpQ8SSFkZRQga nRpcmVseSBzdWJtaXR0 EFMlhG1eGZGmSSCbcPS vyLHxjHweMhkvjDI1GI mdDijjzR2rtJFCROVLN wfECuampiVoZG8OEM2X ZoZZYO75HrYeRJK2TQi HA7BSkOQ0Owy2LGp7eH tcZmxkcnNsdCBcJzFDf O4HUGgnPervfFU8EEcm OnrszI3bqGMMMOWHSih FWwpvaxMmMO5ZIZ4QCS 1QzHDjEKV6jBB6ONELE pmtyQA7nUD9qB01MTBb KSTawGQhCFfbQ784YJW lNHrnDDe0ptPfZUYiRd WrTYipHPWzU33ex2MDy 4IzPZOgt5djeYjil6Yy dGVuZFxwYXJccGFyZFx toA2jCeAjs7zazVc7OE kfpuS5UMFfqd8ukTtic J4dTVm7AJiwVKMjS0Eq P9TbXTlrRWT6IVFrMyL cXGRiICBPVlIgIiBDMz wxUFZ0JrK7XLk1VRZBR rQvFdBmEJHuGXP4JhYw ATo5OBi9IHyJDvEmAOC eJBH7Qns2CGK0SbQ2FO xcdCAyIFxcZiBBcmlhb CBcXGZzIDEwIFxcZmIg VFcjzWLwGQ4oySiwgIH pblxiXGZzMjAgQjpccG SvKW8PFYNyRFpdPMUqn EZDEWP9WT4vXARSCmra dHJwYXJcbGluMFxyaW4 yRY5GHRi9qcZpJOQaM0 PiOPCwPzSgY6GrrEObd RqrI3ZmrJBnBnMngsVr iU57UQOiVNJiYFKqQFO ieTuayMKqg62cuNV4QG 2vwInsi1ZsGHHcSNbuT Y38pyhkCD22ZYelGV76 MEpxME9nKGLoDJxwFOV gN4NpI3M4XIeoKN53wR DghRnfs0SdiOt7tSYhF OgrGKQqLzGgMJCdc1Px V8Q7WCLaVAxtr3reBGM fIWkib1FzWRvYRFBJBF 8ETY7flIR8WLeUG4AJB 6tSjJJeIMX9wEZ6UVHK BhgsyTA7aPV6gN47KFO mAFAwoBLfBQsfZ461WE K9KPShDEizg5nyFNLeF Lajc3DbFRoPRPYPKF8A VR9xoVF1DReND2VGQKh gYZEtKjbibGVEDUO3NZ ukgLeiqTc2q6fftSIag 4z9AUtkOQG9jLdnkUTv blxsdHJjaFxmczIwIA0 IXUSuzSJTWYX8WK3mQV q0VJwcNFNrA7PpP9Yzv xZyaEKaGHQjwnJxu5dm VLI9GYVsjKNnrAOwTeE oDbypAQC6QTAiAYukWN 2Gj5lySQSwpONtVVV9B FxcaWQgNTEwMDIgXFxk WnCiR9MGFNUeBwB5SBB lECIlNKw4IPnuB8OJUX QhCCA3PELoSKPiJpN9I Cp0PFZKOy6pPFIwKDdm AYO1XcK4UXQbRKZcAQS gMiBcXGYgQXJpYWwgXF xmcyAxMCBcXGZiIFxcZ eblFFsbH69qyJcmdQ7k DlqdrkDkIAK4QQXmcuW NClxwbGFpblxlcGljTm VzdERvYzEgDQpcbHRyc GFyXGxpbjBccmluMCAN ClxsdHJjaFxiXGNmMVx ydrQxAEM8x39lA5oxGP evt9RjpDIfAr4fwVJxk 1E7sIZwgMH8IkekMDwh CfZyNS77aEXzyEbhPVY dYmEkyPIuOLBht3R9MO BmcmFnbWVudHMsIDAuN jB8EFHcUFL8IEEdRtMh vLJckrAaK3iqEJamzHU oAUPdbIfbNRc0UVK5Md 0taCRfVJUkkqJNEP4mA Xqqiq91JNM8o3gsjSKx TMaaPecteNSsocZ6XPq EIXXMUAmZGlFvJC8qOL xJTktCRUdJTnwyMTAxN pxztGGULJV9GUmbaMeh hLc5t9mgcVVgh1x1SGd wTKQ9pYZUd0xfuTXuIJ ikWholzGMgduM9JJtRJ PJAJRxEBhScCW1iBDoO MhdPCoW0ViAbLMB4LSe RZ6SViQW5Qai3PDo8hM tcZmxkcnNsdCBcJzFDf S0iyVkabA7ogYLrQ3tt ZnMyMCANClxlcGljTmV soFEjIpSfmoQ5WFVbdI JwODZ6LK0kGXYeqxyzN ASvADYlBOH2QLjevB04 bHQwXGZzMTZccGFyfVx wbGFpbiANCntcKlxlcG dfg4GwzYBsMFerXAJfT QYkFDirTYNoZV5EPrDf NZLfZFHcHMltTYe7CHt 4LB6SGmXpWZVsKPY8QE S6ZxSgUVb6NTxlFG5WZ GOyEFU4TnMcFXYhNWXn VuJlNIi5KGRpQEqzGEZ yaWFsIFxcZnMgMTAgXF prItGfAKJmCUbbyzF6O HBsYWluXGJcZnMyMCBE OlxwYXIgDQpccGxhaW5 pKLWxC70ob2ZYx9BkTQ 9WNJk5vzDxvyxpcN6qV DMgmaKsHBunhYLmO2ve YuqdOoRfGcIbPFNAl7l vbiwgaGVwYXRpYyBmbG K4gOAcFZxpf5RciRclb jO4QJ3dFFUpz1IgsDIm xW2ltPZ9VYSiGKNxDQS dCNWdb8Y0KCJbweL0oS OlmRQaYuCqO37lonMhP KFfLQPxaJlcWT38sLRa fKkmw5KhzXi8pEHcESc sEYOfViUlDTGao6FtE2 K5DAGzZIieo9djUHFtL Ugai0YyGKoJEYJRZC4M VN4lpYW7KAjSM0JRK3d QeRKfFSU4zGV5IZBJRh ochRI0fID6yL99XVYxK VXfyLCeEWikN398NBR1 LYPtONvyi8vbRZYgEKi af1QjEQfBQWWHAM6ZJD 7moYL2FIgPX9EGOLceF EGkHfzvzHCOLXH6TFcj yZiciNp5o5rxwJHpk2p 4HEhnHUM7sTfakZXtqx xscATisLtrrvDsUH3DZ GQiiRYYIWR0ML4kVCt9 PPrwGCJmS8IdP4LuqqC joHNdNMTfenXje7mwVH R1BQGyfOJeqEItPcXjA wmmYAU9LECdTJzrJI5L XQCsBPI0EQvwnP29mDP sTB8WGEBkRByyFPJzXT PhsmL0YFWpnROoOCA8L W2ccHqihNJbwdemzvW9 IA0KfQ== Disclaimer (test code = j1dnrBXtHNOwxQBsQqY 9844) bYHBiVEGek9ncZIEhdS FuZzEwMzNcZnRuYmpcd COcDWRsHhFhm0tnp094 wDJel9fwFLPhJvI6gKY uUIFrqLJdW885VGEtTZ czp4tfw8AgGJOdpNFwf 4K9CYAEsvkwoYs2nJfz M55xm9Y5MvndM5hdMVC fXQPjU5XdLJ2aAFWrCa a9PRC3CRY4DGHbALNjV 4DtEF2hSCCvvUYcFFm2 t8cdaPlsKLDaVOM8z6i hDNnkmmHtYB9ocx0uwD i0l4etehTuNBEeAGRnn JDWOCEsW8XmqBbzNt0l sYb1dQkwXrbnCVR9Ixa 3DE8kug64bdo1hLkcVB NthhoqRlT4GXkzHPXwt cruVBw7AFboFXMqnEA9 VHExsJMgB7RbMTJwOB3 vift0SGP0KEovXUBnBs P9LJDiaREoIRAggVnkZ Eozq676ODR3HtPcXJ4n X6Wgg3M2dP1npSLgOUE okQRkWrPgYNTnrh5ldS YpAKduw2UuATE5yfG5n HArgCNgZECmQL29Mnms v7SmOsgwBNV1GHKfblR ot5Vfh3rkLfDgmjDzR9 qhI9PrIWKyRXLlPFYxZ bQgoeSgt2Bey5RzsHDn fJo0e7ijGUCwQROnbOq il5ecURQ5OOVcX9J7pR Esi4vyYLkcDJMlzYK7c pK8KERpxEVpY8KadG5w SHAfMQ1levs0a9cqHHG 1XKzrVIAwYbQ5dkB4KR BcaGVhZGVyeTcyMFxmb 462FKD7EiWjIYJxk5Wi C0ZxoVckL99beQpnR52 zNNHovZqygK1zkYcchO 5cZjBcZnMyNFxxbFxwb BHvvcaeAZbbayR1QPok jvojDWDpXQqiN5ynKrB fRIRbzAijXPdyc7YbLB WgCSWkTlmgoiF9GRNJt 05eQGBwt6RiUVExfJ7q wTYsZWbnuhLboDP0JVj hdmUgYmVlbiBkZXZlbG 7qVNCyJX1dLSYocjIsc a9xncYnTMDvPHPmQ5Rf cmlzdGljcyBkZXRlcm1 ufxUwPGV7LBZJYG2VCQ FiQVYwq71rWZCjpAorz U4fdBNucaVoJARgg5Su sK7fjEUKRPRmY2kiOW6 rSDxhf4VhaEYmeIQgpT Z9XOPhz0CgTiYgwwYjb HUdhXDaW6WmcBxyY4ee UQQgGQUrbnLzsDNfr3H zCASriQO5gVQuRW2ZAz WHq44iHJLkRNZSjxMnF KPpbDgxnYW2exN5mB8a LiBJZiBhcHBsaWNhYmx xHLCuz000cp1btmP3NF ZlBFIanrrjc9StFPYzO LSvoK45AOGtSJPbzp8w ppdxdMDzinXkK9Vtmgy 1uY5tUWJvZVgvUPHoTK ZzMjJcbGFuZzEwMzNca GljaFxmMVxkYmNoXGYx YSbmT4gqHlLjBuUbBrs wYXJ9 [facility]Confirm [id number] 01:27:34 Test Item Value Reference Range Interpretation Comments ABORh Confirm. (test code = 882-1) O NEG [facility] HospitalCOVID-19 (SARS-CoV-2) PCR- Asymptomatic [id number] 10:04:37 Test Item Value Reference Range Interpretation Comments COVID19 (SARS Not Detected Not Detected CoV-2) Result (test code = ____This test i s a 29573-6) qualitative reverse-transcr iptase polymerase mario alberto n reaction (RT-PC R) developed for t G3 RUFINO 680 0 system and inte nded [...] patients provid ed by the manufacture r ([employer]) c an be reviewed at:https://www. [email or web address].go v/media/392841/ downlo ad. A fact shee t for Health Care pro viders is provided by the sap ppm consultant ([employer]) and can be reviewed at: https://www.fda .gov/m edia/785928/denys nload Results must be interpreted wit hin [...] specimen for te sting if clinically indicated. This assay has been approv ed by the FDA for use only under Emergency Use Authorization ( EUA) in laboratories that have been CLIA-certified to perform moderate-comple xity and high-comple xity tests. The performance characteristics of this assay were verified by the Microbiology Laboratory at [facility], CLIA Accreditation # : [id number] and CAP Accreditation # : [id number]. COVID19 SARS HORSE IDENTIFIER Swab Source (test code = 20980) COVID19 SARS Pre-Out of OR Indication (test Procedure code = 57758) [facility] Stephenvilletreptococcal Urine Antigen Path [id number] 07:11:21Streptococcal Urine Antigen Path ReviewPresumptive negative for S. pneumoniae antigen in urine, suggesting no current or recent pneumococcal infection. Infection due to S. pneumoniae cannot be ruled out since the level of antigen present in the urine may be below the detection limit of the test....Reviewed and Electronically signed by Pathologist:Amaury Sinha MD, PhD #[id number] [facility]ENTERUnB[facility]axahachieLegionella Urine Antigen Path [id number] 07:11:20Legionella Urine Antigen Path ReviewNegative for L. pneumophila [...] Electronically signed by Pathologist:Amaury Sinha MD, PhD #[id number] [facility]ENTERUnB[facility] – WaxahachieTroponin T (In-House) 2021-07-10 12:49:59 Test Item Value Reference Range Interpretation Comments Troponin T (test code = 37 ng/L See_Comment H < 19 ng/L Suggest 9384) retest at 3 to 6 hours later to rule o ut myocardial infa rction >= 19 to <=52 n g/L Possible myocar dial injury. Suggest retest at 3 hours. - a change of < 20 ng/L, retest at 6 rafael rs - a change of >= 20 ng/L, suggestive of myocardial infa rction > 52 ng/L Sugge stive of myocardial infarction Crit ical value will be r eported when cTnT is > 52 ng/L and only report ed for the first in a series. Hemolyzed speci mens with Hemolysis Index >100 (100 mg/dl or moderate hemoly sis) may cause interferences a nd falsely low res ults. [Automated mess age] The system [employer] generated this result transmitted ref erence range: <=18. Th e reference range was not used to int erpret this result as normal/abnormal . Lab Interpretation Abnormal (test code = 98200-3) [facility] Stephenvilletreptococcus pneumoniae Urine [id number] 23:04:40 Test Item Value Reference Range Interpretation Comments Streptococcal Urine Antigen Negative Interpretation (test code = 31783109) [facility] HospitalLegionella Urine [id number] 22:58:02 Test Item Value Reference Range Interpretation Comments Legionella Urine Antigen Negative Interpretation (test code = 1874862) [facility] HospitalD [id number] 19:02:48 Test Item Value Reference Range Interpretation Comments D-Dimer (test code = 0.77 See_Comment H Recheck ed and 5419) VerifiedThe cut off value for exclu mir of venous thromboe mbolismis <0.51 mcg/mL FE Us (fibrinogen equ ivalent units). [Automa mary message] The sy stem which generated this result transmit mary reference range : 0.10 - 0.50 mcg/ml FEU . The reference range was not used to interpr et this result as normal/abnormal . Lab Interpretation Abnormal (test code = 99132-4) [facility] HospitalPOC Chem 8 without Hemoglobin and [id number] 18:20:24 Test Item Value Reference Range Interpretation Comments POC NA (test code = 131 See_Comment L [Automa mary message] 45283-6) The system [employer] generated this result transmitted ref erence range: 138 - 14 6 mEq/L. The refe rence range was not u sed to interpret this result as normal/abnor mal. POC K (test code = 2.3 See_Comment A Method de scription: 88618-8) The i-STAT is a n analyzer used f or in vitro quantific ation of various anal ytes in whole blood. The device uses a s lindsey disposable cart ridge which contains microfabricated sensors, a calibration che ution, fluidics system , and a waste chamber . Each test cartridge contains chemic ally sensitive biose nsors on a Simbionix ip that are config ured to perform spec ific tests. The microfabricated sensors measure analyte concent ration by an electroch emical assay. [Automat ed message] The sy stem which generated this result transmit mary reference range : 3.5 - 4.9 mEq/L. e reference range was not used to int erpret this result as normal/abnormal . POC CL (test code = 81 See_Comment L [Automa mary message] 2068-08) The system [employer] generated this result transmitted ref erence range: 98 - 109 mEq/L. The refe rence range was not u sed to interpret this result as normal/abnor mal. POC VTCO2 (test code 32 See_Comment H [Autom ated message] = 2026-06) The system [employer] generated this result transmitted ref erence range: 24 - 29 mEq/L. The reference r jackie was not used to interpret this result as normal/abnor mal. POC Anion Gap (test 21 mmol/L 03-23 H code = 48478) POC BUN (test code = 16 mg/dL 01-2799-2) POC Crea (test code 1.0 mg/dL 0.6-1.3 Medicati ons, = 79969-6) especially hydroxyurea or supplements, gomez ch as ascorbate, can interfere with test [...] ridge which contains microfabricated sensors, a calibration [employer], fluidics system , and a waste chamber . Each test cartridge contains chemic ally sensitive biose nsors on a Simbionix ip that are config ured to perform spec ific tests. The microfabricated sensors measure analyte concent ration by an electroch emical assay. POC eGFR-AA (test 87 See_Comment Normal eGF R >= 60 code = 24680-1) mL/min/1.73 m2 The eGFR is calcula mary [...] ith normal or high GFR >=902 Kidney da mage with mild decre ase in GFR 60-893a Mil d to moderate decrea se in GFR 45-593b Mod erate to severe decre ase in GFR 30-444 Shanti re decrease in GFR 15-295 Kidney f ailure <15 (or dialysi s) [Automated mess age] The system [employer] generated this result transmitted ref erence range: >=60 mL/min/1.73 m2. The reference range was not used to int erpret this result as normal/abnormal . POC eGFR-JOSELITO (test 75 See_Comment Normal eG FR >= 60 code = 56412-1) mL/min/1.73 m2 The eGFR is calcula mary [...] ith normal or high GFR >=902 Kidney da mage with mild decre ase in GFR 60-893a Mil d to moderate decrea se in GFR 45-593b Mod erate to severe decre ase in GFR 30-444 Shanti re decrease in GFR 15-295 Kidney f ailure <15 (or dialysi s) [Automated mess age] The system [employer] generated this result transmitted ref erence range: >=60 mL/min/1.73 m2. The reference range was not used to int erpret this result as normal/abnormal . POC Glucose (test 132 mg/dL 70-99 H code = 30743-0) POC Ion Ca (test 1.00 mmol/L 1.12-1.32 L code = 62136-0) POC Sample Type Venous (test code = 6690) POC Clean Dev (test Yes code = 6672) Performing Lab (test MDA Main Main Ca mpus code = 78375) [facility], [address], [place] [address]; Radio Assembler: Paty Chavez MD Lab Interpretation Abnormal (test code = 95684-0) [facility] [id number] 18:26:09 Test Item Value Reference Range Interpretation Comments CK (test code = 5206) 84 U/L 39-308 [facility] 18:[facility]07 Test Item Value Reference Range Interpretation Comments CK MB (test code = 2.6 ng/mL See_Comment [Automat ed message] The 5209) system which ge nerated this result tra nsmitted reference range : <=10.4. The reference r jackie was not used to int erpret this result as normal/abnormal . [facility] Interpretation 2021-06-13 20:17:02 Test Item Value Reference Range Interpretation Comments Materials Received (test s0ormKHmWVMvqKKnUxDp code = 9973) GPEqJRRxo8zhLZUmqMWd ZzEwMzNcZnRuYmpcdWMx TKTvLoVah8oqo082uTHh l7fdIQSwClD6mUPaXLGz pQKnJ452QRLxDKcex9ra l6OjAOCxyOAvr7B1XWEF naixkBa8yNreW12vt7Q8 ZwemZ5uoPBWaVWNjD2Va TW4oNDTqAkj1GPF5LWM7 ZTOsNFJoR6ZuYK2oDYOs oRIdICx6x0zyyLeoZNYk PZU9b2mbGXbxhgKxML1i bf0yyWo6a5wwxcXzSXTc MBQwhQOYCZHqM5MkmBvp Cx1zeBm4wRieIfliJPI7 Tbl1AC1hvh37vag6bXvt ZEZmvqugAtU4AZyqBNCh chxbARu9TEpsTMZqfIie MFxtYXJncjcyMFxtYXJn tHY5LIQayAMaI6CvWOYk ENniZBMvsdf2TbPbFb1a mUCgnEflNNslz4uqt2ul bQDcHul5YMBgCvPwWeqv KDpji6Dtr7tvJFJqil7i IYS6pKOupOmfu2K3sFQd LKGboRUjdsZcIRPrhx28 kUVxvMRcpDFtsp6gzeAy uLWkzZVwFJM5dPZoctOn RZEemYOyLTMmLL3ogLTt GOTfpY9musajBZQbReJf prhzLWIihOnquaMmTn4t yUnrSBR2ORazV1yvnC4q NyG1JLakH6cdbZ4bJFs1 QJogiWY4CQMwhP7aXH3k asecp8gqMbInFU9mdwyg m3zfTkAdVQ3ijkp4r9xy VEX4RYhrEOMjIpA2trB9 NDBcaGVhZGVyeTcyMFxm q394SRA4DsFcVTXcr3Np R5PzeQwtO54fnGjtN83c YZWtwSwlrQ6cjRbolF2u FcXkInOqEPw1qc37ITs0 mbdeiFjjMOp1fpRdHZDj HRM4YHSspRXzDGByA1e5 cdNzEVMhMPT4NPPyqXOh LHGuN3u4ehUmEKS7DRi4 cnBhZGRmdDNcdHJwYWRk YjBcdHJwYWRkZmIzXHRy rILhoVMyuXXtiO9fqFeg BUYceGZloV3yPHG0HREb cmgzMjBcdHJoZHJcbHRy wp02ZQUgjpUfsFMwpKlj tLAvCWI3UMPuTQVwZXOa VUX1MMNjGkNhadHyEClk bGJyZHJiXGJyZHJzXGJy ZFK3IVIwNtRptyClVWtn bGJyZHJsXGJyZHJzXGJy MZO9WMVrAkJvqcOaFCow bGJyZHJyXGJyZHJzXGJy AAQ1PSVwKoEpntQwPKqv bHBhZHQxMFxjbHBhZGZ0 R1ysnPOrZSVlWTseeUAh HSYzT4vllQHfEVnlUEPf cGFkZmwzXGNscGFkYjBc T0pcZGHvPnSlT8PfwQr1 MDAwXGNsdmVydGFsdFxj oOErTHY0PYZlBKKhQVYw DSJ1NELkOmWvdgGyZLnm bGJyZHJiXGJyZHJzXGJy MWF7BMKtOoCdmcMuFNvy bGJyZHJsXGJyZHJzXGJy DGP7QVFwEuAajqNcNSft bGJyZHJyXGJyZHJzXGJy LKM5BCTpQzLykdExJKxh bHBhZHQxMFxjbHBhZGZ0 Q3vmzRBvWZDtPEhxxVFt WSAoF9kjkPVfAKmxWSRs cGFkZmwzXGNscGFkYjBc Z7blBWFeFaDeU3FjvVg9 NjAwXGNsdmVydGFsdFxj xRMlCCM0JLAhBTLuRHCp VJM4MXXzReFobkHdFMiw bGJyZHJiXGJyZHJzXGJy YXQ3VGVsKqNfboSnTCgf bGJyZHJsXGJyZHJzXGJy XSZ6LJFaQqDtjaTzNRpc bGJyZHJyXGJyZHJzXGJy AHP2CUYpBaKqcpRqFPxz bHBhZHQxMFxjbHBhZGZ0 G4rlxJLpZSDoRLbinIGa KPLaW0tlkRSbUTxnRQBs cGFkZmwzXGNscGFkYjBc Y0foOSAvKnKmG3YuaIy2 KqGhRMPutjNdbM78Ftfe r2IiMZNcBCM7CLuqNJgz bFxwbGFpblxmMVxmczIw GAhwribwOREbVPbiG9kw XuSnWVTeiTeoPXgbv1Sx XGYxXGNmMlxmczIwXGIg JVAzCAIgdS2cVifdJ7Bz gE1kZZjrEoauY0isRIMc h9RwvT3kDTghaVApstye MVxmczIwXGxhbmcxMDMz LFguK2yjJnZkRKIohRsu JSeab4LmMBTpXSHzSzjz erLiHHr5diTyVOQxqZoh oGRfMEpgotVmrEgul7Kn aeYerNpbZRVuICc5orDq zaedsEk3sSJqkHlhALNk oSltfD8yUzQhWpSrVVmm bGFpblxmMVxmczIwXGxh xyrsWIPgEFojK2cbAoCk RFYjaFraYFhwp5LsYSQz CSGuKvhwwyZrZQRnE00o bGVjdGVkXHBsYWluXGYx XGZzMjBcbGFuZzEwMzNc aGljaFxmMVxkYmNoXGYx XHjwZ4cgCuPmB4MvWSDn QrImtEMxC3pfE4RboRrm YXJkXGludGJsXHNzcGFy SLB1sKJcvrBmlIZilRHj QWYiEKruGAS7hAVwfkcq yFTpatwpDKdcehS1JOXz YWluXGYxXGZzMjBcbGFu ZzEwMzNcaGljaFxmMVxk KwVxLUSvVExgO2hxKlPn D9ZtIXNoTaDhDhVORSQd aXZlZFxwbGFpblxmMVxm czIwXGxhbmcxMDMzXGhp S5buAgFeDWYnnGpgPCmv t3PqCEIdYILzDzteqlJm PHl2jbKzAFPisRzxuQ02 Nwbjom19KNKcb4ivAHXm H8GpiOJoBRSpiPNlPLdh MDhcdHJwYWRkZmwzXHRy cGFkZHIxMDhcdHJwYWRk ZnIzXHRycGFkZHQwXHRy tZMkANK0K8m7kgLhNKBj JGu7pjDeIKEcQsEbkJEb QDV9SCs0MvgwycF8eLEj M2a5FrtyocLdFEfubCFz ts55ZZHpztVimJLstSdz dGBdEVT1CQAaOZPtXXKm TYJ1TYEmPmJvucLpMNat bGJyZHJiXGJyZHJzXGJy NDY1BYLrAdIdudYkBXaq bGJyZHJsXGJyZHJzXGJy HXW2MRRzFgZqvoRxKEpe bGJyZHJyXGJyZHJzXGJy SFS6OXYpQjPqjqAoUEgo bHBhZHQxMFxjbHBhZGZ0 O8cceNFsQMQaAVphqFJz SMKcX1vzsRNdDEzhRXDy cGFkZmwzXGNscGFkYjBc Z5rpIVKvDeEmE0XnhYv6 MDAwXGNsdmVydGFsdFxj jMKnKNO2MTGyEYEdQDHf ZGJ6YMKpEhZehzVyIFza bGJyZHJiXGJyZHJzXGJy HQM7QWJhTiWaggQmSIkb bGJyZHJsXGJyZHJzXGJy ZFF2JJVeXnKxsnEqGFbh bGJyZHJyXGJyZHJzXGJy DOM3RMWiBdUavgLdHWlp bHBhZHQxMFxjbHBhZGZ0 Y9frqDPwXGQpPIcueJIx LCWjT4knqHCfTXzzFQTg cGFkZmwzXGNscGFkYjBc U7nlDUDzEmMvM4LouMi5 NjAwXGNsdmVydGFsdFxj aFOmPBH9ICFfQBHrAQUe NXV7WKKjSyCmlsKhLBmn bGJyZHJiXGJyZHJzXGJy NOU1GGLbJjXsjlMwYXiv bGJyZHJsXGJyZHJzXGJy RIW4WVFzLlXpulXgFGpi bGJyZHJyXGJyZHJzXGJy SVU4ETBkGaRegtYaGXdi bHBhZHQxMFxjbHBhZGZ0 P8gsnCSlCOInQBtlhNAc VEPrT0fnzJViVPonTGHu cGFkZmwzXGNscGFkYjBc T8hfMPOyCyBeE4MleUz3 ZcQpNVCqcdNaoT76Fayd a2WaPICuTJS6LDszAVln bFxwbGFpblxmMFxmczI0 XHBsYWluXGYxXGZzMjBc bGFuZzEwMzNcaGljaFxm KHvrJuKyDWHhVUnmB3fz ZgGrY0NbNYEuXhUiOD4r KkZ0BZEwUCS3QYU5BGTP DBPpHIRQE3LHLqsdBSZR G4ShiDogsX2oYeSjZuNf DWwmFZ6oKJRoM3yrcKMn AIPyQJOcZ0smXqWxcZ1l aFxmMVxjZjJcZnMyMFxs dHJjaFxjZWxsXHBhcmRc dU76Gxbpc2GfLWIyTSW6 MFxzMFxxbFxwbGFpblxm ERgmibM8HGEuIZkjTYOk XGZzMjBcbGFuZzEwMzNc aGljaFxmMVxkYmNoXGYx FVmzZ6qmAlPrG5QnDEOw MjAgMTAvMjUvMjAyMVxw bGFpblxmMVxmczIwXGxh pdqsKNRfQMaoA1brFhLc XYPxqEoxHNwed8AzCTMv STJxAqexrdPbIUs8anJs XGNlbGxccGFyZFxpbnRi zRnjo5SsjfUoeGevQPFn XHFsXHBsYWluXGYwXGZz SqFgsFimiQ9iXpPoWcWt JZugMU8rNXAbI6klsRAe AZImUWImG6ezNgEweU7l aFxmMVxjZjJcZnMyMCAx SZ0wGy9vBLQhQWLtYXwz XGYxXGZzMjBcbGFuZzEw MzNcaGljaFxmMVxkYmNo EETzCUptS5tqXgPrN2Dx JFCvDaQdoBRqG8vcM5He iPxpjkIjyUedn2qzfKIb PRjib7SmtpTffMnlWGNo XHFsXHBsYWluXGYwXGZz JbDnyYkraQ2wGpLsYfSj HCrlVB9oDOXdY3nsxWRz BNFbLLXtJ2qeKeNrbD6m aFxmMVxmczIwXHBhcn0= Addendum 1 (test code = b6uqbQRcWKCzkKX2FkJn 37) IZNwz4lbl0NnzNMarWCx MUngrDNekoGapk00tGQ6 xY68XJ1dHNCxZcZ8DKGt zkA1Mxg2LZNxIGPpaORb D782v1hah2bdxfXdnVM9 iWkrUZDrtpqrTcC5PMhr BMDuobbwCZo6DLprPOMz iQP8XTCuhKXiP1NnGMPr TE4rwho7WHM9XYcxOUGh KlN4ICDgnXAuPFThqKjz JSmqz091RFI8OtWpFKVo waGgwEnmvB4uKeBjIHHX EHNleJulfuIeQR5rpZHz wHPaXRGkO6ZzdwHtZH8o OATpGrMyKiJjMpLqXK32 kJRkUXSbTPSsEDCieS4v BhovYtV3UYIlAMO5XFYv XGYCDOTkWJHKG6JFHYFx WWFPGfyoS60yzDWjwOSa HB0tQHBvPfL3RtWfItDk XHBhclxwYXIgRGVlcGVy BZbcppHoeyGkNtQpiD0c mtUtTsW5FVEiSOD9BCWr IHdlcmUgZXhhbWluZWQu IIJgVNAmxmpmvF1ddPXo mECoba8nkASjiaUbPQlh aqL1zwBuVR1aARSmFHEk cn0= Diagnosis (test code = h6zwwYTbPCLqdPK2AtGy 34) TBGej6cee3IqgERntAAl BQryoBKpswEjhp71iQR2 bX52JA2aFZFcHuZ6RAFd krJ6Svy4BBXsYWTbjKLu N250x1awx4bzpmRmiPF9 BJKoYDSjY3EdVB1fMJMu eNGmT15cyGErELX3JOGi BACwaZCiTNMiXCV9TICa fSItA2vbWJMiQD4ismch ZHllFGroJAGteTU3JFMf lOBkR1HyVSYfGSuvBGHg tns5QiLsWq6hiSOutGeh MFxwYXJkXHBsYWluXGZz WgIhS9EkBO11uBZcKRIp KDIxOklTMTUzOCwgNiBT Gdb7FQWcmomhPkCrzLRo XGxpNzIwXGxpbjcyMCBM AIK1xtclVEPqU3v1DDAy aTMvjn1gJUmhGlqefFK4 IChBKTpccGFyXGxpMTQ0 DAjhxX1dGZLkFXWZLVGK J1FIYANRKElvJ0HKK5eU N77ZQJVsqWQnlATgv3Gn TVZhksYrfiJns0aavsiu JYMkdMs1JcBmaJuiCbYs XJBepgACDNM4gtkfTUkt OzZxVOL6fWUlw6csUACm nF8bo3okHFDsNrqbOZGb hYffBGJmDCzltrP4RVUz H4Y1CO6ntIJrvXCgh3Bz VTmtjFoxS7sdt07ySnEx hiIrLT6zYVPox66iBD8a X4C8zULzLFSckyR1eZ4n zsprQBRuvZn8CwBzoNlo GbOgGZHvrbTEBMM4fqih CXjsChLzWzTfm6Mvmz6r ZMxgV06hJKpyCnccjSP9 IChDKTpccGFyXGxpMTQ0 BTpmkI3pOWZaMGRwbYKk o8NwHG88F12tAORpgzZe wHmie1Dte8DxtOZdpmwb R9idtgOsUW6oD0M0yOHf LDRqwjE8hX5yinttKKYg mOQqFBMgcnYtU48QZ3CP TlxwYXJ9 Provider Engagement Executive(s) (test code b1mswJSfFNAeyNM4RvAk = 9809) EHNwq4qft6KsiNRchKWu ISopuZQwifFphi83pTA3 jY52BP7kKTElTnD7MZAx giI4Wqi1GEDhOHKsfDYw N477r0ymi7ngtqDaxON1 lZekUJOmtimlNoU7LJvd NCJqsluiZUc7TTueRNOy lLW4EMFylMLpS7SlNZRk PW8kdum8XQN9GXpvQEHg JxT2JAVrfGDlEVThbPnz EGyro305RCY2UxZtSQLx swJuoLbhaG4fEtBiSAOG zd2dOLbnkBLawUMpZ7ug bGlhbXMgaGFzIHJldmll v5EbEUCgvyLdBGQbipAa Z89mX9Qfah6qmIAhbW== Biomarker Block(s) (test q3bktFZnLPWvqZS7SoVs code = 9841) TRWvs9gvq5LbtWPtrGIu EUhsnXBklhQpcl78mCK4 pM20UJ6gYCLiTdV3TPLj roD0Mbe6ELJoXDFiwLVz Y829t2axd6yygrTloWQ3 pOagVLOcziugCiB7UPxb RNHjrogcZVa3YGevBUGi lFF2ETZwnRNaI1QuFWIb OR4uwzr2IAW1SDjgXNIt CkY7OTNrtXGaKGYsxBzr UInsi237XEL3RqWxNAMv xwAheYrylR0qLiKeVDHX OiBBXHBhciBOOiBDXHBh cn0= Disclaimer (test code = p9ingEEhNVIlqSZvOtEe 9844) DSDvPCFmb4gfJYOulKEt ZzEwMzNcZnRuYmpcdWMx ODNsFcPjv1vqj648hLIy e7pmGEWtSmY5kERwJPEe fJMxU144PYNrETpfn2zm f7FkTRAfdXJce2J2KQXY umlzaOg4hEyhH66ew6R1 PonkP6ulWCSxPYZaY5Ik PV6nQXGdHbn8GCR7LNU2 VISpOHBoA7ZyCQ9mJWGx pVWcHBt0c2vmfZsqXFEz FBS1j7abHYnzjuLxQQ0t hx6ijIm3i4wlniIcZAWi UIOldHIBDBZyU3ZbgCfm Ms8twSr0cYoiZrgdXGE1 Crt0IA9lqw39inp1kXgw YSCiurahOkL7IInfBLAw ngpbJGe5MWzcOKZgdQB3 UYIidLWkY3HqKKYyQF8l uvv5SCE4GRatNWPmEfZ1 NDBcaGVhZGVyeTcyMFxm s827WYM4LeLrJA7yK6Qf x9W4pA3ftHZtZNPgiTAm LmQoEXOgey5eqVXfECxg z1BdMFX7huA8tGHtsWGd RASpBH01Gpcon3KfLcov XWF0HFVymzCoe1Bpg8gl DdUglqOzI0gfQ8QhVCSb AKDbMNFyBwSazkAax0Kt s7CpcTBjoJc4g3blKFPs OIRgrMrde7xbEKC3WIKx L6A3rLWte0qnMLgtXDTq nQI0mkV5JZYowPFvW3Ee yH5cHSJeJI4zseq8m6vv UXJ1XMrbBDMsDzC4mkH0 NDBcaGVhZGVyeTcyMFxm g006BQX0MtZsLYDbu7Js D0WkeNobI22xiMsjN44s QIUhvMsjlC4ouQunhI9n ZjBcZnMyNFxxbFxwbGFp gfojVMffvhL2WZawvikh GCRvNKhqX8egIcMsSZNi wUciINlyi3FpIFSeJQHc KtvqinL4GLNKw14aKRYn p3QvKTMdqV6euQUfROgl uaZqfXC6VIxaixTzIoDj ruQjQZDwuZ5sNXOrIW4f BWJqcbPnmp0yjmDkYGNp FFAaG8SghrcntIykkoBo VXNynh7ksuKsYPP1ESRD NZ0JVLSlBWRda28eBKTj iYgbqX1hmWEvpbSqNESj m5OdiD9snJHVXQNuJ7oo XU5qQYqkz8CddTQgaVMj oXI1REOgr5VuPlHqiqGd sNFrdKOwT7PmwOfdK1lv EPWyHEPtrpJtqZZow1Bc CEVaqPF8hGWpLB8YFvEL r86cNCZqQJCDfnEoKJZi dGsswXX7blR8wE8jCyLH ZiBhcHBsaWNhYmxlLCBj s125pi5lyiF0RDUpMBHw mcrgw5WrDRCuFHRjpT46 ZDQlBYJalq8qocxwyXBw yzZxI1Cmjub6eA3iQFNj YWluXGYxXGZzMjJcbGFu ZzEwMzNcaGljaFxmMVxk NvRsLOApHCgqZ5hgFwPs ZnMyMlxwYXJ9 [facility] COVID-19 (MAURA-CoV-2) PCR [id number] 01:46:37 Test Item Value Reference Interpretation Comments Range COVID19 SARS Pre-Out of OR Procedure Indication (test code = 30714) COVID19 SARS Result Not Detected Not Detected (test code = 51686-7) COVID19 SARS SARS-CoV-2 NOT Detected. Interpretation (test Reference Range: Not code = 29806) Detected Methodology: The Fontanez RealTime SARS-CoV-2 assay is a qualitative real-time reverse base draw operator polymerase chain reaction (rail splitter-PCR) test to detect RNA from SARS-CoV-2 in nasal, nasopharyngeal and oropharyngeal swabs from patients with signs and symptoms of infection who are suspected of COVID-19 by their health care provider. The Fontane[employer] RealTime SARS-CoV-2 performed on the Lifesquare000 System is a dual target assay with [...] CLIA-certified, high-complexity Molecular Diagnostics Laboratory ([facility]) at [facility] under the Food and Drug Administration (FDA) s Emergency Use Authorization. Factsheet for patients: [email or web address]://[email or web address] AbbottFactSheetPatientsFact sheet for healthcare providers: [email or web address]://[email or web address]/ AbbottFactSheetHCP Test performed by:[facility] [address] [place] [address] [facility] HospitalGlucose, [id number] 18:55:04 Test Item Value Reference Range Interpretation Comments Glucose Random 136 mg/dL 70-199 Effective 12/03 12/17, the (test code = 9360) glucose r eference intervals have been updated based o n [place] [employer] rommel delines (Standards of M edical Care in Diabete s 2016. Diabetes Care 2 016; 39: S13-S22).Fastin g blood glucose:Normal: 70-99 mg/dLImpaired f asting glucose (increa sed risk for diabetes or pre-diabetes): 100-125 mg/dLDiabetes m ellitus: >/=126 mg/dL Ra ndom blood glucose:N ormal: 70-199 mg/dLNot e: Random glucose >100 mg/dL is associ ated with increased risk for diabetes PEDRO LUIS (test code = Not fasting PEDRO LUIS) [facility] HospitalVitamin D [id number] 18:49:59 Test Item Value Reference Range Interpretation Comments Vitamin D 25 [place] (test 42 ng/mL 30-100 Refere nce Range: code = 8018) Deficiency: <10 ng/mLInsufficie ncy: 10-29 ng/mLSuff iciency: 30-100 ng/mLPot ential toxicity: >100 ng/mL [facility]TMP HCV Ab Path [id number] 12:33:38 Test Item Value Reference Range Interpretation Comments HCV Ab Path There is NO Interp (test serologic evidence code = 8923) of Hepatitis C M AYRIN virus antibody. DELFINO FERNANDEZ,Dictated by: RUFINO FERNANDEZ,Dictated Date/Time: 05.04.2021 6:33 AM CARGO AGENT Transcribed Date/Time: 05.04.2021 6:33 AM CSTElectronical ly Signed By: JOSEPHINE IN SALEH JIM, on 05.04.2021 6:33 AM C [facility] HospitalHepatitis C Virus [id number] 05:13:47 Test Item Value Reference Range Interpretation Comments HCVAb. (test Non Reactive Non Reactive Antibody detect ion in the code = 5762) immunocompromis ed and immunosuppresse d population may be delayed or absent entirely. There fore serial testing, correl ation with other clinical findings, and supplementa l testing (if available) should be taken into cons ideration when interpreti ng the results.Perform ed at:[facility] [id number] [place], [place], [place] [address] [facility] Kjwwlwzval2421-03-88 12:58:27 Test Item Value Reference Range Interpretation Comments POC Crea (test 1.2 mg/dL 0.6-1.3 Medications, code = 67734-8) especially hydroxyurea or supplements, gomez ch as ascorbate, can interfere with test [...] which contains microfabricated sensors, a calibration che [employer], fluidics system , and a waste chamber . Each test cartridge contains chemic ally sensitive biose nsors on a Simbionix ip that are config ured to perform spec ific tests. The microfabricated sensors measure analyte concent ration by an electroch emical assay. POC eGFR-AA (test 70 See_Comment Normal eGF R >= 60 code = 70406-4) mL/min/1.73 m2 The eGFR is calcula mary [...] ith normal or high GFR >=902 Kidney da mage with mild decre ase in GFR 60-893a Mil d to moderate decrea se in GFR 45-593b Mod erate to severe decre ase in GFR 30-444 Shanti re decrease in GFR 15-295 Kidney f ailure <15 (or dialysi s) [Automated mess age] The system [employer] generated this result transmitted ref erence range: >=60 mL/min/1.73 m2. The reference range was not used to int erpret this result as normal/abnormal . POC eGFR-JOSELITO 60 See_Comment Normal eGFR >= 60 (test code = mL/min/1.73 m2 The 12919-7) eGFR is calcula mary using the CKD-E [...] ith normal or high GFR >=902 Kidney da mage with mild decre ase in GFR 60-893a Mil d to moderate decrea se in GFR 45-593b Mod erate to severe decre ase in GFR 30-444 Shanti re decrease in GFR 15-295 Kidney f ailure <15 (or dialysi s) [Automated mess age] The system [employer] generated this result transmitted ref erence range: >=60 mL/min/1.73 m2. The reference range was not used to int erpret this result as normal/abnormal . POC Clean Dev Yes (test code = 6672) Performing Lab Radiology OP [facility] Radiology OP [facility] (test code = [facility] [address]) [facility], [address] [facility], [place], [place] [address]; Point of Care L ab Director: Brooke valencia MD [facility]
[2022-01-13 15:15] LABS: Absolute Lymphocytes (CBC) 0.8 K/uL (0.7-4.9); Hematocrit 30.6 % (39.6-49.0); Lymphocytes % 25.4 % (15.3-44.8); MCV 83.1 fL (80-100); MPV 8.4 fL (7.6-11.3); RBC Red Blood Cell Count 3.68 M/uL (4.33-5.43)
[2022-01-13 15:16] LABS: Protime INR 1.12
[2022-01-13 15:30] LABS: Albumin 2.8 g/dL (3.4-5.0); Bilirubin Total 0.4 mg/dL (0.2-1.0); Potassium 3.4 mmol/L (3.5-5.1); Protein, Total 5.9 g/dL (6.4-8.2)
[2022-01-13 15:30] LABS: SARS-CoV-2 Antigen Rapid Res Negative (Negative)
--- NOTE | 2022-01-13 15:30 | RAD REPORT ---
EXAM DESCRIPTION: RAD - Chest Single View - 01/13/2022 3:23 pm CLINICAL HISTORY: PAIN, hemoptysis, history of flattening cancer, COPD COMPARISON: Portable October 14 TECHNIQUE: AP portable chest image was obtained 01/13/2022 3:23 pm . FINDINGS: No failure, infiltrate or acute lung parenchymal process seen. Interstitial pattern matche s comparison. Trach tube is in place. Right-sided PICC line is in place well positioned. Heart and vasculature are normal. No measurable pleural effusion and no pneumothorax. No acute bony abnormality seen. No acute aortic findings suspected. IMPRESSION: No acute cardiopulmonary process.
--- NOTE | 2022-01-13 16:57 | EDPHYS ---
Physician Documentation [facility] Name: Roland Lam Age: 71 yrs Sex: Male : 1950 Arrival Date: 01/13/2022 Time: 14:23 Bed 2 Private MD: Alanna Bullard ED Physician Franklin Barger HPI: 01/13 14:44 This 71 yrs old Male presents to ER via Unassigned with complaints of Breathing jr11 Difficulty, Blood in trach. 14:44 Patient is a 71-year-old has a history of throat cancer radiation and that trach back jr11 in November of this year here with bleeding from the trach today, bright red blood, inner cannula covered. Slowly stopping. Patient denies any pain, no current difficulty breathing.. Onset: The symptoms/episode began/occurred just prior to arrival. Severity of symptoms: At their worst the symptoms were mild in the emergency department the symptoms have improved. Pt gets care at [facility] . 14:44 Pt had TPA to decl line RUE . jr11 Historical: - PMHx: 14:44 CAD; COPD; Diabetes - NIDDM; High Cholesterol; THROAT CA; jh5 - PSHx: 14:44 no recent SX; jh5 - Immunization history:: Adult Immunizations up to date. - Social history:: Smoking status: Patient/guardian denies using tobacco, the patient reports quitting approximately 1 years ago. ROS: 14:44 All other systems are negative. jr11 Exam: 14:44 Constitutional: appears chronically ill Head/Face: Normocephalic, atraumatic. Eyes: jr11 Extra-ocular motions intact. Lids and lashes normal. Conjunctiva and sclera are non-icteric and not injected. Cornea within normal limits. Periorbital areas with no swelling, redness, or edema. ENT: trach in place, no obvious bleeding Cardiovascular: Regular rate and rhythm with a normal S1 and S2. No gallops, murmurs, or rubs. Normal PMI, no JVD. No pulse deficits. Respiratory: Lungs have equal breath sounds bilaterally, clear to auscultation and percussion. No rales, rhonchi or wheezes noted. No increased work of breathing, no retractions or nasal flaring. Abdomen/GI: Soft, non-tender, with normal bowel sounds. No distension or tympany. No guarding or rebound. No evidence of tenderness throughout. Back: No spinal tenderness. No costovertebral tenderness. Full range of motion. MS/ Extremity: Pulses equal, no cyanosis. Neurovascular intact. Full, normal range of motion. Neuro: Awake and alert, GCS 15, oriented to person, place, time, and situation. No gross motor or sensory deficits. Vital Signs: 14:42 BP 165 / 60; Pulse 67; Resp 18; Temp 98.8(TE); Pulse Ox 98% on R/A; Weight 54.43 kg; jh5 Height 5 ft. 5 in. (165.10 cm); Pain 0/10; 15:23 BP 134 / 61; Pulse 60; Resp 17; Pulse Ox 98% ; jh6 19:00 BP 175 / 71; Pulse 60; Resp 12; Pulse Ox 99% ; vc1 20:00 BP 175 / 60; Pulse 83; Resp 14; Pulse Ox 100% ; vc1 21:27 BP 170 / 64; Pulse 63; Resp 14; Pulse Ox 99% ; vc1 14:42 Body Mass Index 19.97 (54.43 kg, 165.10 cm) 5 MDM: 14:31 Patient medically screened. jr11 14:44 Differential Diagnosis bleeding trach . Data reviewed: vital signs, nurses notes. ED jr11 course: Patient is a 71-year-old with a bleeding trach, will need a scope, will call her ENT, if not will transfer to [facility].. 17:15 ED course: Dr Johnson accepted . 11 01/13 14:41 Order name: CBC with Diff; Complete Time: 15:35 [facility] 01/13 14:41 Order name: CMP; Complete Time: 15:35 [facility] 01/13 14:41 Order name: Lipase; Complete Time: 15:35 [facility] 01/13 14:41 Order name: PT-INR; Complete Time: 15:35 [facility] 01/13 14:41 Order name: Chest Single View XRAY; Complete Time: 15:35 [facility] 01/13 14:49 Order name: SARS RAPID; Complete Time: 15:35 [facility] 01/13 14:41 Order name: IV Saline Lock; Complete Time: 15:10 [facility] 01/13 14:41 Order name: Labs collected and sent; Complete Time: 15:10 Administered Medications: No medications were administered Disposition Summary: 01/13/22 16:57 Transfer Ordered Transfer Location: [facility] jr11 Reason: Higher level of care jr11 Condition: Fair jr11 Problem: new jr11 Symptoms: are unchanged jr11 Accepting Physician: Dr. Juan Miguel Montano/ [facility](01/13/22 22:07) tw5 Diagnosis - Bleeding Trach jr11 Forms: - Medication Reconciliation Form jr11 - SBAR form jr11 Signatures: Dispatcher [employer] EDSavannah Davis Tiffany tw5 Meg Ngo RN RN jh5 Franklin Barger MD MD jr11 Corrections: (The following items were deleted from the chart) 17:30 16:57 [facility] ENT jr11 eb 22:07 17:30 Dr. Juan Miguel Montano/ [facility] eb tw5
--- NOTE | 2022-01-13 16:57 | ER ---
Nurse's Notes [facility] Name: Roland Lam Age: 71 yrs Sex: Male : 1950 Arrival Date: 01/13/2022 Time: 14:23 Bed 2 Private MD: Alanna Bullard Diagnosis: Bleeding Trach Presentation: 01/13 14:42 Chief complaint: Patient states: pt says he was coughing up blood tinged sputum x1 day jh5 from his trach; no active bleeding noted at this time. Coronavirus screen: Vaccine status: Patient reports receiving the 2nd dose of the covid vaccine. Client denies travel out of the [place] in the last 14 days. Ebola Screen: Patient negative for fever greater than or equal to 101.5 degrees Fahrenheit, and additional compatible Ebola Virus Disease symptoms Patient denies exposure to infectious person. Patient denies travel to an Ebola-affected area in the 21 days before illness onset. Initial Sepsis Screen: Does the patient meet any 2 criteria? No. Patient's initial sepsis screen is negative. Does the patient have a suspected source of infection? No. Patient's initial sepsis screen is negative. Risk Assessment: Do you want to hurt yourself or someone else? Patient reports no desire to harm self or others. Onset of symptoms was January 12, 2022. 14:42 Method Of Arrival: Ambulatory [facility] 14:42 Acuity: HOWARD 3 jh5 Triage Assessment: 14:44 General: Appears in no apparent distress. comfortable, Behavior is calm, cooperative, jh5 appropriate for age. Pain: Denies pain. Respiratory: Reports cough that is productive, Onset: The symptoms/episode began/occurred suddenly, the patient has mild shortness of breath. Historical: - PMHx: 14:44 CAD; COPD; Diabetes - NIDDM; High Cholesterol; THROAT CA; jh5 - PSHx: 14:44 no recent SX; jh5 - Immunization history:: Adult Immunizations up to date. - Social history:: Smoking status: Patient/guardian denies using tobacco, the patient reports quitting approximately 1 years ago. Screenin:00 Abuse screen: Denies threats or abuse. Denies injuries from another. Nutritional jh6 screening: No deficits noted. Tuberculosis screening: No symptoms or risk factors identified. Fall Risk IV access (20 points). Ambulatory Aid- Crutches/Cane/Walker (15 pts). Gait- Weak (10 pts.). Assessment: 15:10 General: Appears in no apparent distress. Behavior is calm, cooperative. 6 Cardiovascular: No deficits noted. Rhythm is regular. Respiratory: Airway is patent Respiratory effort is even, unlabored, Breath sounds are clear. 15:49 Reassessment: Patient and/or family updated on plan of care and expected duration. Pain bm7 level reassessed. Patient is alert, oriented x 3, equal unlabored respirations, skin warm/dry/pink. 17:45 General: Appears. General: ATTEMPTED TO CALL REPORT AND UNABLE TO GET TRANSFER CENTER [facility] TO ANSWER.. 18:22 General: REPORT GIVEN TO LACY BOWENS.. [facility] 20:14 Reassessment: Patient and/or family updated on plan of care and expected duration. Pain vc1 level reassessed. Patient is alert, oriented x 3, equal unlabored respirations, skin warm/dry/pink. Waiting on transportation. 21:26 Reassessment: No changes from previously documented assessment. Patient and/or family vc1 updated on plan of care and expected duration. Pain level reassessed. Transportation on the [facility] from [facility]. Vital Signs: 14:42 BP 165 / 60; Pulse 67; Resp 18; Temp 98.8(TE); Pulse Ox 98% on R/A; Weight 54.43 kg; [facility] Height 5 ft. 5 in. (165.10 cm); Pain 0/10; 15:23 BP 134 / 61; Pulse 60; Resp 17; Pulse Ox 98% ; jh6 19:00 BP 175 / 71; Pulse 60; Resp 12; Pulse Ox 99% ; vc1 20:00 BP 175 / 60; Pulse 83; Resp 14; Pulse Ox 100% ; vc1 21:27 BP 170 / 64; Pulse 63; Resp 14; Pulse Ox 99% ; vc1 14:42 Body Mass Index 19.97 (54.43 kg, 165.10 cm) [facility] ED Course: 14:23 Patient arrived in ED. mr 14:24 Alanna Bullard MD is Private Physician. mr 14:31 Franklin Barger MD is Attending Physician. 11 14:44 Triage completed. [facility] 14:44 Arm band placed on left wrist. [facility] 14:[address] Coleman the ENT director motion picture with Dr. Barger for patient consultation.eb 15:00 initiated a transfer with Bell from the [facility] Transfer [facility]/ per Bell eb they will take the information but that they are at saturation currently / she will call back with a doctor. 15:10 Oralia Sam, RN is Primary Nurse. [facility] 15:18 connected the director motion picture doctor for MD Dorantes with Dr. Barger for patient transfer eb consultation. 15:23 Bed in low position. Call light in reach. Side rails up X 1. [facility] 15:25 Chest Single View XRAY In Process Unspecified. EDMS 15:34 Crystal from [facility] called to make sure we understood that the patient was eb declined. 15:44 initiated a transfer with Tomeka from the [facility]. eb 16:24 connected the ENT director motion picture for [facility] with Dr. Barger for patient transfer eb consultation. 17:[address] Juan Miguel Godinez the hospitalist director motion picture for [facility] with Dr. mao Barger for patient transfer consultation. 17:18 administrative approval given by JOSE A Condon/ patient has been accepted to [facility] eb PCU bed 624/ Dr. Juan Miguel Godinez has accepted the patient in transfer/ report to be called to the transfer center [phone]. 18:22 No provider procedures requiring assistance completed. [facility] 19:21 Primary Nurse role handed off by Oralia Sam, KWAN 20:14 Patient transferred, IV remains in place. vc1 20:15 [facility] ETA 1 hour. mw2 20:16 Pat Leal, KWAN is Primary Nurse. vc1 Administered Medications: No medications were administered Medication: 20:17 VIS not applicable for this client. vc1 Outcome: 16:57 ER care complete, transfer ordered by MD. tate 18:22 Transferred by ground EMS to [facility]. [facility] 18:22 Condition: stable 18:22 Instructed on the need for admit. 22:07 Patient left the ED. tw5 Signatures: Dispatcher [employer] EDVT Aravind Yamilex Dimas, Daniellacassie mw2 Savannah Guy Brittany, RN RN bm7 Rita Groves tw5 Meg Ngo, RN RN jh5 Oralia Sam, RN RN jh6 Pat Leal, RN RN vc1 Franklin Barger MD MD [id number]
[2022-01-13 23:15] VITALS: TEMP 98.8
[2022-01-13 23:43] VITALS: BP 170/64; O2SAT 99
== END 2022-01-13 22:07 | disposition short-term general hospital (02) ==
LOC: ER 14:23
DX: J95.01 Hemorrhage from tracheostomy stoma (principal); C14.0 Malignant neoplasm of pharynx, unspecified; J44.9 Chronic obstructive pulmonary disease, unspecified; E11.9 Type 2 diabetes mellitus without complications; Z20.822 Contact with and (suspected) exposure to COVID-19
CPT/HCPCS: 36415; 71045; 80053; 83690; 85025; 85610; 87811; 99285

== ENCOUNTER 2022-04-18 07:36 | Emergency (ER) | payer OTHER ==
--- OUTSIDE RECORDS SUMMARY | 2022-04-18 07:49 | XMS REPORT | Clinical Summary ---
:1950 Author Organization [facility] MD [facility] Center Address [address] [place] [address] Care Team Providers Name Role Phone Olivia Coleman DO Unavailable Slava Canseco MD Primary Care Provider Yumi Desir MD Unavailable Ene Polk MD Unavailable Camilla Davenport RD Unavailable Anca Maurer SILK SPREADER Unavailable Michael Lam MD Unavailable Brady Payan MD Unavailable Unavailable Allergies No known active allergies Medications Medication Sig Dispensed Refills Start Date End Date Status metFORMIN (GLUCOPHAGE) Take 500 mg by 0 04/19/2021 Active 500 mg tablet mouth as needed. fluoride, sodium, Apply to teeth 51 g 20 05/06/2021 Active (PREVIDENT) 1.1 % twice daily. [place] dental teeth with cream creamIndications: and spit [...] WITHIN 15 MINS, REFILL SYRINGE WITH 5 ferrous sulfate (iron) 1 tablet (325 mg) 0 2 Active 325 mg (65 mg by feeding tube elemental iron per route daily. tablet) tabletIndications: Melena folic acid (FOLVITE) 1 1 tablet (1 mg) by 30 tablet 3 10/24/19 22 Active mg tabletIndications: feeding tube route Hypokalemia, daily. Hypophosphatemia, Folate deficiency, Hypomagnesemia magnesium oxide 500 mg 1 tablet (500 mg) 30 tablet 1 2 Active tabletIndications: by feeding tube Primary squamous cell route daily. carcinoma of larynx, Hypomagnesemia thiamine (VITAMIN B-1) 1 tablet (100 mg) 30 tablet 0 2 Active 100 mg tab by feeding tube tabletIndications: route daily. Hypokalemia, Hypophosphatemia, Hypomagnesemia rosuvastatin (CRESTOR) 1 tablet (40 mg) 0 10/23/2021 Active 40 mg by feeding tube tabletIndications: route at bedtime. Chronic diastolic heart failure ondansetron (ZOFRAN) 8 1 tablet (8 mg) by 0 11/11/19 22 Active mg tabletIndications: feeding tube route Primary squamous cell every 8 (eight) carcinoma of larynx hours as needed for nausea or vomiting. polyethylene glycol TAKE ONE (1) 510 g 3 11/21/2021 Active (GLYCOLAX) 17 CAPFUL MIXED WITH gram/dose WATER BY MOUTH 3 powderIndications: TIMES DAILY. Primary squamous cell carcinoma of larynx, Constipation, not otherwise specified Additional Information Patient taking differently: 17 g oral 3 times daily PRN, Reason: Other, Reported on 02/23/2022 naloxone (Narcan) 4 Use 1 dose into 2 each 0 03/08/2022 Active mg/actuation nasal one nostril as sprayIndications: Oral needed for opioid mucositis due to overdose. Do not radiation prime or test the inhaler prior to adminstration. Give another dose into the other nostril after 2 to 3 minutes if the patient does not respond or responds and then relapses into respiratory depression. budesonide-formoterol Inhale by mouth 0 Active (SYMBICORT) 160-4.5 twice daily. mcg/actuation inhaler nut.tx.gluc Give 500 mL per 0 04/13/2022 A ctive intol,lf,soy/fiber G-tube 3 (three) (diabetisource AC) times a day with enteral tube meals. feedingIndications: Primary squamous cell carcinoma of larynx gabapentin (Neurontin) Open and give 1 30 capsule 0 04/13/2022 Active 300 mg capsule (300 mg) capsuleIndications: by feeding tube Primary squamous cell route 3 (three) carcinoma of larynx times a day. Open capsule and administer contents as directed through feeding tube. apixaban (ELIQUIS) 5 mg Crush and give 1 60 tablet 0 2 Active tabletIndications: tablet (5 mg) by Primary squamous cell feeding tube route carcinoma of larynx every 12 (twelve) hours. aspirin 81 mg chewable 1 tablet (81 mg) 0 04/14/2022 Active tabletIndications: by feeding tube Primary squamous cell route daily. carcinoma of larynx senna (Senna Lax) 8.6 Give 1 tablet by 30 tablet 0 04/14/2022 Active mg tabletIndications: feeding tube route Primary squamous cell 2 (two) times a carcinoma of larynx day as needed for constipation. sodium chloride 0.9% Irrigate with 3 mL 300 mL 04/14/2022 Active nebulizer as directed 3 solutionIndications: (three) times a Primary squamous cell day as needed for carcinoma of larynx irrigation. Administer via tracheostomy tube as needed for trach care potassium chloride Take 2 packets (40 60 packet 0 04/14/2022 1 06/05 Active (Klor-Con) 20 mEq mEq) by feeding 3/20 packetIndications: tube route 3 22 Primary squamous cell (three) times a carcinoma of larynx day for 10 days. Mix contents of 1 packet in 4 ounces (120 mL) of water or juice. Stir well and administer promptly. amoxicillin-clavulanate Mix as directed 75 mL 0 04/16/202204/04 Active (AUGMENTIN) 400 mg-57 with water 6/20 mg/5 mL provided. Shake 22 suspensionIndications: well and give 10.9 Primary squamous cell mL (875 mg) by carcinoma of larynx feeding tube route twice daily for 3 days. Discard any remainder. HYDROcodone-acetaminoph Give 15 mL by 473 mL 0 04/16/2022 Active en (HYCET) 7.5 mg-325 feeding tube route mg/15 mL every 4 (four) solutionIndications: hours as needed Primary squamous cell (pain). carcinoma of larynx, Swallowing painful, Acute postoperative pain cetirizine (ZyrTEC) 10 TAKE ONE (1) 0 03/15/2021/ 2 Discontinued mg tablet TABLET(S) BY MOUTH 11/21 ( Stop Taking at ONCE A DAY. 22 Discharg e) clopidogrel (PLAVIX) 75 TAKE ONE (1) 0 03/15/2021 Discontinued mg tablet TABLET(S) BY MOUTH 11/21 ( Stop Taking at ONCE A DAY. 22 Discharg e) Dexilant 60 mg capsule TAKE ONE (1) 0 04/13/202110/03 Discontinued CAPSULE(S) BY 11/21 (Stop Taking at MOUTH DAILY. 22 Dischar ge) diazePAM (VALIUM) 5 mg Take 5 mg by mouth 0 03/29/20 21 / Discontinued tablet as needed. 01/21 (Stop Vinod ing at 22 Discharge) fenofibrate TAKE ONE (1) 0 02/08/2021 03/ Disc ontinued nanocrystallized TABLET(S) BY MOUTH (Stop Taking at (TRICOR) 145 mg tablet ONCE A DAY. 22 Discharge) losartan (COZAAR) 50 mg Take 100 mg by 0 04/16/202106/05 Discontinued tablet mouth daily. 11/21 (Dose 22 adjustment ) metoprolol tartrate TAKE ONE (1) 0 04/19/2021 02/0 Discontinued (LOPRESSOR) 50 mg TABLET(S) BY MOUTH 01/03 0 (Stop Taking at tablet TWICE A DAY WITH 22 Dis charge) FOOD. montelukast (SINGULAIR) TAKE ONE (1) 0 04/07/2021 03 /3 Discontinued 10 mg tablet TABLET(S) BY MOUTH (Stop Taking at ONCE A DAY. 22 Discharg e) simvastatin (ZOCOR) 10 TAKE ONE (1) 0 03/09/2021/ 2 Discontinued mg tablet TABLET(S) BY MOUTH 11/21 ( Discontinued by EVERY EVENING. 22 anoth er clinician) aspirin 81 mg EC tablet Take 81 mg by 0 04/25/2010 0 / Discontinued mouth. 11/21 (Stop Taki ng at 22 Discharge) budesonide-formoterol Inhale 2 puffs by 0 10/03 Discontinued (SYMBICORT) 160-4.5 mouth twice daily. (Stop Taking at mcg/actuation inhaler Patient usually 22 Discharge) does it once a day at night. tadalafil (CIALIS) 20 Take 20 mg by 0 08/03 Discontinued mg tablet mouth. 01/21 (Error) 22 Nicoderm CQ 21 mg/24 hr Apply 1 patch to 28 patch 0 Discontinued transdermal skin and change 10/21 (R eorder) patchIndications: patch daily as Nicotine dependence directed for tobacco cessation (alternate sites). ondansetron (ZOFRAN) 8 Take 1 tablet (8 30 tablet 05/17/2021 Discontinued mg tabletIndications: mg) by mouth every 02/21 (Reorder) Primary squamous cell 8 (eight) hours as 22 carcinoma of larynx needed for nausea or vomiting. prochlorperazine Take 1 tablet (10 60 tablet 05/17/2021 Discontinued (Compazine) 10 mg mg) by mouth every 02/03 0 tabletIndications: 6 (six) hours as 22 Primary squamous cell needed for nausea carcinoma of larynx or vomiting (if not controlled by Ondansetron). gabapentin (Neurontin) Take 1 capsule 90 capsule 1 05/25/202108/03 Discontinued 300 mg (300 mg) by mouth 06/23 capsuleIndications: 3 (three) times a 22 Primary squamous cell day. 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 Radiation dermatitis ferrous sulfate (iron) 0 08/16/201710/03 Discontinued 325 mg (65 mg elemental 07/24 (Reorder) iron per tablet) tablet 22 Nicoderm CQ 21 mg/24 hr Apply 2 patch to 56 patch 0 2 03/0 Discontinued transdermal skin and change 3/20 (R eorder) patchIndications: patch daily as Nicotine dependence directed for tobacco cessation (alternate sites). guaiFENesin Take 10 mL (200 473 mL 3 06/13/202108/03 D iscontinued (ROBITUSSIN) 100 mg/5 mg) by mouth 01/03 0 (Error) mL syrupIndications: (four) times a Primary squamous cell day. carcinoma of larynx, Thick sputum lidocaine (XYLOCAINE) Swish and swallow 100 mL 2 06/15/202110/03 Discontinued 20 mg/mL (2%) viscous 5 mL every 4 11/21 (Stop Taking at solutionIndications: (four) hours as Discharge) Oral mucositis due to needed (throat radiation pain). traMADol (ULTRAM) 50 mg Take 1 tablet (50 60 tablet 0 06/15/1907/06 Discontinued tabletIndications: Oral mg) by mouth every 06/23 mucositis due to 4 (four) hours as radiation needed for moderate pain or severe pain. magnesium oxide 500 mg Take 1 tablet (500 30 tablet 1 06/15/1910/03 Discontinued tabletIndications: mg) by mouth 07/24 (Reorder) Primary squamous cell daily. 22 carcinoma of larynx, Hypomagnesemia cloNIDine HCl Take 1 tablet (0.1 10 tablet 0 06/22/202106/05 Discontinued (Catapres) 0.1 mg mg) by mouth 01/21 (Reorder) tabletIndications: (three) times a Hypertension day as needed for high blood pressure (Systolic blood pressure over 180, diastolic over 110). rosuvastatin (CRESTOR) daily. 0 06/25/202110/03 Discontinued 40 mg tablet 07/24 (Reorde r) losartan (COZAAR) 100 daily. 0 06/24/202110/02 Discontinued mg tablet 09/21 21 glycopyrrolate Take 1 tablet (1 90 tablet 1 06/29/2021 Discontinued (RobinuL) 1 mg mg) by mouth 01/21 (Stop Taking at tabletIndications: (four) times a Discharge) Primary squamous cell day. carcinoma of larynx, Thick sputum senna-docusate Take 1-3 tablets 100 tablet 3 06/29/2021 03/3 Discontinued (SENOKOT-S) 8.6 mg-50 by mouth twice 0 (Stop Taking at mg tabletIndications: daily. 22 Discharge) Primary squamous cell carcinoma of larynx, Constipation, not otherwise specified polyethylene glycol Take 17 g by mouth 510 g 3 06/29/202110/02 Discontinued (GLYCOLAX) 17 gram/dose 3 (three) times a 06/23 (Therapy powderIndications: day. 22 c ompleted) Primary squamous cell carcinoma of larynx, Constipation, not otherwise specified cloNIDine HCl Take 1 tablet (0.1 10 tablet 0 07/01/202110/02 Discontinued (Catapres) 0.1 mg mg) by mouth 3 09/21 tabletIndications: (three) times a Hypertension day as needed for high blood pressure (Systolic blood pressure over 180, diastolic over 110). folic acid (FOLVITE) 1 Take 1 tablet (1 30 tablet 3 07/13/202110/03 Discontinued mg tabletIndications: mg) by mouth 07/24 (Reorder) Hypokalemia, daily. 22 Hypomagnesemia, Hypophosphatemia, Folate deficiency potassium-sodium Give 1 packet per 30 packet 0 07/12/202110/02 Discontinued phosphates (PHOS-NAK) NG-tube twice 06/23 (Therapy 280 mg-160 mg-250 mg daily. Mix 22 completed) powderIndications: contents of 1 Hypokalemia, packet of the Hypomagnesemia, powder in 2 and Hypophosphatemia 1/2 ounces (75 mL) of water or juice. Stir until completely dissolved and drink the mixture right away after mixing. Do not save for later use. thiamine (VITAMIN B-1) Take 1 tablet (100 30 tablet 0 07/13/19 22 10/03 Discontinued 100 mg tab mg) by mouth 07/24 (Reord er) tabletIndications: daily. 22 Hypokalemia, Hypomagnesemia, Hypophosphatemia potassium chloride Give 30 mL (40 900 mL 0 07/12/202110/02 Discontinued (KAYCIEL) 20 mEq/15 mL mEq) per NG-tube 06/23 (Therapy solutionIndications: daily. 22 completed) Hypokalemia amoxicillin-clavulanate Take 1 tablet (875 2 tablet 0 022 Discontinued (Augmentin) 875 mg-125 mg) by mouth daily 01/21 (Reorder) mg per for 2 doses. 22 tabletIndications: Acute hypoxemic respiratory failure, Aspiration pneumonia amoxicillin-clavulanate Take 1 tablet (875 5 tablet 0 022 07/05 (Augmentin) 875 mg-125 mg) by mouth twice /20 mg per daily for 5 doses. 22 tabletIndications: Acute hypoxemic respiratory failure, Aspiration pneumonia traMADol (ULTRAM) 50 mg TAKE ONE (1) 90 tablet 0 07/25/2021 /0 Discontinued tabletIndications: Oral TABLET (50 MG) BY 02/21 (Reorder) mucositis due to MOUTH EVERY 09 23 radiation (FOUR) HOURS NEEDED FOR MODERATE PAIN OR SEVERE PAIN. Nicoderm CQ 21 mg/24 hr Apply 1-2 patches 56 patch 0 08/05/19 22 10/02 Discontinued transdermal to skin and change 06/23 (Reorder) patchIndications: patch daily as Nicotine dependence directed for tobacco cessation (alternate sites). HYDROcodone-acetaminoph Take 1-2 tablets 240 tablet 0 08/15/19 Discontinued en ([place]) 5 mg-325 mg by mouth every 02/21 per tabletIndications: (eight) hours as 22 Oral mucositis due to needed for severe radiation pain. gabapentin (NEURONTIN) TAKE ONE (1) 90 capsule 1 08/22/2021 Discontinued 300 mg CAPSULE(S) BY 11/21 (Stop Taking at capsuleIndications: MOUTH THREE TIMES 22 Discharge) Primary squamous cell A DAY. 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 Aspiration pneumonia pantoprazole (PROTONIX) Take 1 tablet (40 30 tablet 3 09/01/19 22 10/02 Discontinued 40 mg EC mg) by mouth every 06/23 ( Therapy tabletIndications: morning before completed) Aspiration pneumonia breakfast. losartan (Cozaar) 100 1 tablet 0 10/02 Discontinued mg tablet 09/21 21 metoprolol-hydrochlorot 1 tablet with food 0 05/1 Discontinued hiazide (LOPRESSOR HCT) 09/21 50-25 mg per tablet predniSONE (DELTASONE) TAKE ONE (1) 0 10/05/202110/02 Discontinued 10 mg tablet TABLET(S) BY MOUTH 09/21 TWICE A DAY. 22 methylPREDNISolone USE DIRECTED. 0 09/30/202110/03 Discontinued (MEDROL DOSEPACK) 4 mg 11/21 (Stop Taking at tablet Discharge) levoFLOXacin (LEVAQUIN) TAKE ONE (1) 0 10/05/2021 Discontinued 750 mg tablet TABLET(S) BY MOUTH 09/21 ONCE A DAY. 22 Nicoderm CQ 21 mg/24 hr Apply 1-2 patches 56 patch 0 10/13/1902/03 Discontinued transdermal to skin and change 07/24 (Therapy patchIndications: patch daily as completed) Nicotine dependence directed for tobacco cessation (alternate sites). arformoterol (BROVANA) Inhale 1 vial (15 180 vial 0 10/03 Discontinued 15 mcg/2 mL nebulizer mcg) by 11/21 (Reorder) solutionIndications: nebulization twice Chronic bronchitis, not daily for 90 days. otherwise specified budesonide (PULMICORT) Inhale 1 vial (0.5 180 vial 0 10/28/1910/03 Discontinued 0.5 mg/2 mL nebulizer mg) by 11/21 (Reorder) solutionIndications: nebulization every Chronic bronchitis, not 12 (twelve) hours otherwise specified for 90 days. ipratropium-albuterol Inhale 1 vial (3 540 vial 0 10/27/202110/03 Discontinued (DUO-NEB) 0.5 mg-2.5 mL) by 11/21 (Reorder) mg/3 mL nebulizer nebulization every 22 solutionIndications: 4 (four) hours for Chronic bronchitis, not 90 days. otherwise specified levoFLOXacin (LEVAQUIN) Give 30 mL (750 150 mL 0 10/27/202110/04 250 mg/10 mL mg) per G-tube 06/23 solutionIndications: daily for 5 doses. 22 Chronic bronchitis, not otherwise specified losartan (COZAAR) 100 Give 1 tablet (100 30 tablet 0 11/03 mg tabletIndications: mg) by feeding 6/2 0 Essential hypertension tube route daily 22 for 30 days. sodium chloride 3 % Inhale 4 mL by 720 mL 0 10/27/2021 05/2 Discontinued nebulizer nebulization twice 11/21 ( Reorder) solutionIndications: daily for 90 days. 22 Chronic bronchitis, not otherwise specified nebulizer accessories 1 Units by 1 kit 0 10/27/2021 08/2 (Reusable Nebulizer miscellaneous 09/21 Kit) kitIndications: route as needed 22 Mucopurulent chronic (per nebulizer bronchitis schedule.) for up to 90 days. arformoterol (BROVANA) Inhale 1 vial (15 180 vial 0 2 08 15 mcg/2 mL nebulizer mcg) by 09/21 solutionIndications: nebulization twice 22 Chronic bronchitis, not daily for 90 days. otherwise specified budesonide (PULMICORT) Inhale 1 vial (0.5 180 vial 0 10/28/19 22 08/2 0.5 mg/2 mL nebulizer mg) by 09/21 solutionIndications: nebulization every Chronic bronchitis, not 12 (twelve) hours otherwise specified for 90 days. ipratropium-albuterol Inhale 1 vial (3 540 vial 0 10/27/2021 08 (DUO-NEB) 0.5 mg-2.5 mL) by 09/21 mg/3 mL nebulizer nebulization every 22 solutionIndications: 4 (four) hours for Chronic bronchitis, not 90 days. otherwise specified sodium chloride 3 % Inhale 4 mL by 720 mL 0 10/27/2021 06/0 Discontinued nebulizer nebulization twice 12/21 solutionIndications: daily for 90 days. 22 Chronic bronchitis, not otherwise specified sodium chloride 7 % Inhale the 240 mL 6 11/07/2021 07/0 Discontinued (Hyper-Marcela) nebulizer contents of 1 vial 01/21 (Reorder) solutionIndications: (4 mL by) Chronic obstructive nebulization twice pulmonary disease, not daily. otherwise specified [id number] Inhale 1 puff by 1 each 6 2 04/04 Discontinued ilanter (Trelegy mouth daily. 08/21 (Stop Taking at Ellipta) 200-62.5-25 22 Discharge) mcg dsdvIndications: Chronic obstructive pulmonary disease, not otherwise specified ondansetron (ZOFRAN) 8 1 tablet (8 mg) by 30 tablet 11/11/19 22 Discontinued mg tabletIndications: feeding tube route 02/21 (Reorder) Primary squamous cell every 8 (eight) 22 carcinoma of larynx hours as needed for nausea or vomiting. traMADol (ULTRAM) 50 mg 1 tablet (50 mg) 0 2 02/03 Discontinued tabletIndications: Oral by feeding tube 11/21 mucositis due to route every 6 22 radiation (six) hours as needed for severe pain. HYDROcodone-acetaminoph 0.5-1 tablets by 0 2 Discontinued en (NORCO) 5 mg-325 mg feeding tube route 10/21 (Reorder) per tabletIndications: every 8 (eight) 2 2 Oral mucositis due to hours as needed radiation for severe pain. nut.tx.gluc Give 375 mL per 0 11/11/202104/04 D iscontinued intol,lf,soy/fiber G-tube 4 (four) 08/21 (Stop Taking at (diabetisource AC) times a day. 22 Discharge) enteral tube feedingIndications: Dyspnea, not otherwise specified, Breathing-related [...] otherwise specified, Mucopurulent chronic bronchitis, Laryngopharyngeal reflux acetaminophen (Tylenol Take 1 tablet (500 60 tablet 0 11/12/19 22 04/04 Discontinued Extra Strength) 500 mg mg) by mouth every 08/21 (Stop Taking at tabletIndications: 6 (six) hours as 22 Discharge) Dyspnea, not otherwise needed for mild specified, pain, moderate Breathing-related sleep pain or headaches. disorder, Acute and chronic respiratory failure with [...] chronic bronchitis, Laryngopharyngeal reflux, Shortness of breath amoxicillin-clavulanate Take 10.9 mL (875 153 mL 0 11/13/19 22 11/02 (AUGMENTIN) 400 mg-57 mg) by mouth twice 8/20 mg/5 mL daily for 7 days. 22 suspensionIndications: Cellulitis of neck sodium chloride 7 % Inhale the 240 mL 6 12/09/202104/04 Discontinued (Hyper-Marcela) nebulizer contents of 1 vial 08/21 (Stop Taking at solutionIndications: (4 mL by) 22 Discharge) Chronic obstructive nebulization twice pulmonary disease, not daily. otherwise specified predniSONE (DELTASONE) Take 2 tablets (40 10 tablet 0 12/10/19 22 12/03 20 mg mg) by mouth daily tabletIndications: for 5 days. Crush 22 Chronic obstructive and administer pulmonary disease, not through feeding otherwise specified tube cyclobenzaprine Take 1 tablet (5 20 tablet 0 12/16/202102/03 Discontinued (FLEXERIL) 5 mg mg) by mouth 07/24 ( Therapy tabletIndications: nightly as needed completed) Primary squamous cell (muscle pain). carcinoma of larynx sulfamethoxazole-trimet Take 1 tablet by 20 tablet 0 2 12/03 hoprim (Bactrim DS) 800 mouth twice daily 5/20 mg-160 mg per for 10 days. 22 tabletIndications: Primary squamous cell carcinoma of larynx metroNIDAZOLE (FlagyL) 1 tablet (500 mg) 42 tablet 0 2 01/02 500 mg by feeding tube 06/23 tabletIndications: route twice daily 22 Cellulitis of neck for 21 days. ceFEPime (MAXIPIME) 2 g 0 01/18/202202/03 Discontinued injection 07/24 (Not Appli cable) gabapentin (NEURONTIN) TAKE ONE (1) 0 10/27/202102/03 Discontinued 300 mg capsule CAPSULE(S) BY 11/21 MOUTH THREE TIMES 22 A DAY. ciprofloxacin feeding Give 10 mL (500 140 mL 0 02/23/2022 0 02/03 tube suspension 50 mg) per J-tube 02/21 mg/mL twice daily for 7 (AMB-CMPD)Indications: days. Cellulitis of neck gabapentin (NEURONTIN) TAKE ONE (1) 90 capsule 0 02/27/2022 Discontinued 300 mg CAPSULE(S) BY 08/21 (Stop Taking at capsuleIndications: MOUTH THREE TIMES 22 Discharge) Primary squamous cell A DAY. carcinoma of larynx, Swallowing painful, Fistula, Cellulitis of neck traMADol (ULTRAM) 50 mg TAKE ONE (1) 90 tablet 0 02/27/2022 Discontinued tabletIndications: Oral TABLET BY MOUTH 08/21 (Stop Taking at mucositis due to EVERY FOUR HOURS 22 Discharge) radiation NEEDED FOR MODERATE PAIN OR SEVERE PAIN. HYDROcodone-acetaminoph 0.5-1 tablets by 30 tablet 0 04/04 Discontinued en (NORCO) 5 mg-325 mg feeding tube route 08/21 (Stop Taking at per tabletIndications: every 8 (eight) 2 2 Discharge) Oral mucositis due to hours as needed radiation for severe pain. potassium chloride Take 2 tablets PO 36 tablet 0 03/31/2022 Discontinued (Klor-Con M20) 20 mEq 2x daily for 2 3 0 (Stop Taking at tabletIndications: days then 1 tablet 22 Discharge) Hypokalemia daily senna (Senna Lax) 8.6 Take 1 tablet by 30 tablet 0 04/13/202204/04 Discontinued mg tabletIndications: mouth 2 (two) 06/23 (Reorder) Primary squamous cell times a day as 22 carcinoma of larynx needed for constipation. amoxicillin-clavulanate Mix as directed 400 mL 0 04/14/202204/04 Discontinued (AUGMENTIN) 400 mg-57 with water 08/21 (Reorder) mg/5 mL provided. Give 04 25 suspensionIndications: mL (875 mg) by Primary squamous cell feeding tube route carcinoma of larynx twice daily for 14 days. Discard remaining medication after 14 days. 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 Will evaluate for obstructive sleep apne a with Home sleep Study. 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 Patient reports improvement in shortness of breath with lowest o2 saturation of 98% which is improved in comparison to last 6mwt. Recommend continued use of inhaled thera py and nebulized therapy. Will follow up in 6 months. Type 2 diabetes mellitus without complication 04/25/20 10 Acute postoperative pain Resolved Problems Problem Noted Date Resolved Date [...] Encounters Date Type Specialty Care Team Description Telephone [place], Discharge Call 2 REMI High Orders Only Internal Medicine Eric Fitzpatrick emdianelys 2 MD Saray (Primary Dx) Orders Only Speech Pathology Sravan Fiore Primary s quamous cell 2 Torie, carcinoma of la rynx [facility] (Primary Dx) Orders Only Radiology Robert Ritter, 2 RT Documentation Head and Neck Tracey Kumar 2 Surgery Sri Documentation Head and Neck Buoy, Tracey 2 Surgery Sri Surgery Ene Polk, COMPLETE 2 MD LARYNGECTOMY, W [facility] RADICAL NECK DISSECTION Anesthesia Event Addie Arreguin MD 2 Hospital Encounter Head and Neck Ene Polk, 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 (Primary Dx); 2 - Surgery MD Fatigue; Chronic diastol ic heart failure; 2 Type 2 diabetes mellitus without complication; Chronic obstruc tive pulmonary disease, not otherwise specified; Essential hyper tension; Encounter for a djustment and management of vascular access device; Swallowing pain ful; Acute postopera tive pain Travel 2 Anesthesia Event Anesthesiology Kirit Elmore 2 Garett, KWAN Consult Plastic Surgery Stephani, Primary squa mous cell 2 MD Shruthi carcinoma of la rynx Hospital Encounter [facility] [place] Encount er for other 2 M, CARAMEL MAKER preprocedural examination POEM Appointments Anesthesiology Slava Canseco No Show 2 MD Nick Clinical Support Andres Neville, Suspected C OVID-19 (Primary Dx); 2 OUMAR Miller Primary squamous cell carcinoma of laryn x Lucas Carbajal, KWAN Travel 2 Anesthesia Event Anesthesiology [place] 2 M, CARAMEL MAKER Anesthesia Event Anesthesiology Meg Wolfe 2 L, MA Orders Only Internal Medicine Hima Lopez MD Hypokalem ia (Primary 2 Dx) Consult Cardiology Feng Johnson MD Preoperative cardiovascular examination (Primary Dx); 2 Bryan Cannonos is of samish coronary artery 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, not otherwise specified; MD Fareed Hypertension; Dyslipidemia Travel 2 Telephone Speech Pathology Lisa Connolly CCC-HOME HEALTH CLINICAL SUPERVISOR Hospital Encounter Lab [place] Pre op labs 2 M, CARAMEL MAKER POEM Appointments Anesthesiology Slava Canseco Pre op l abs (Primary 2 MD Nick Dx) Consult Internal Medicine Jamin, Encounter for other preprocedural examination (Primary Dx); 2 OUMAR Miller Primary squamous cell carcinoma of laryn x; Hima Lopez MD Essential (ninfa saenz) hypertension; Hyperlipidemia, not otherwise specified; Type 2 diabetes mellitus well controlled; 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, not otherwise specified; Gastro-esophage al reflux disease without esophagitis, not otherwise specified; Carotid artery stenosis <Unspecified side>; Chronic obstruc tive pulmonary disease, not otherwise specified Hospital Encounter Head and Neck Ene Polk, 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 Ancillary Procedure Radiology Ene Polk, Prima ry squamous cell 2 carcinoma of la rynx Travel 2 Orders Only Head and Neck Jamin, Primary squamo us cell 2 Surgery OUMAR Miller carcinoma of la rynx (Primary Dx) Orders Only Head and Neck Jamin, 2 Surgery OUMAR Miller Hospital Encounter Speech Pathology Ene Polk, Pr imary squamous cell 2 carcinoma of larynx Crista Connolly, CCC-HOME HEALTH CLINICAL SUPERVISOR Travel 2 Prep for Surgery Head and Neck Jamin, Primary sq uamous cell 2 Surgery OUMAR Miller carcinoma of la rynx (Primary Dx) Refill Radiation Oncology Alexandra De La Rosa, Burakar y squamous cell carcinoma of larynx (Primary Dx); 2 PA 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; Swallowing pain ful; Fistula; Cellulitis of n jasmeet Ancillary Procedure Radiology Okranjeet, Cellulit is of neck; 2 MD Deshawn Cough at rest < Cough; Acute> Travel 2 Hospital Encounter Lab [place], Celluliti s of neck; 2 MD Deshawn Cough at rest < Cough; Acute> Follow-Up Infectious [place], Cough at rest < Cough; Acute> (Primary Dx); 2 Diseases MD Deshawn Cellulitis of n jasmeet Hospital Encounter Pulmonology Slava Canseco 2 MD Nick Telephone Head and Neck Letty Fox, 2 Surgery RN Travel 2 Orders Only Head and Neck Jamin, Primary squamo us cell 2 Surgery OUMAR Miller carcinoma of la rynx (Primary Dx) Nutrition Nutrition Slava Canseco 2 MD Sarbjit Romero Timothy, RD Documentation Nutrition Fermin, 2 Adele Orders Only Sarbjit Laryngopharynge al reflux (Primary Dx); 2 ANDRÉS Maza Type 2 diabetes mellitus without complication; Aspiration pneu monia; Primary squamou s cell carcinoma of larynx; Mucopurulent ch ronic bronchitis; Acute and chron ic respiratory failure with hypercapnia; Chronic diastol ic heart failure; Aortic valve st enosis; Coronary arteri osclerosis, not otherwise specified; Essential hyper tension; Orthostatic hyp otension; Neuropathy due to type 2 diabetes mellitus; Hypercapnia; Severe protein- calorie malnutrition, not otherwise specified; Multiple nodule s of lung; Swallowing pain ful; Gastrostomy pre sent; Cellulitis of n jasmeet; Fatigue Ancillary Procedure Radiology Okhusheila, Cellulit is of neck 2 MD Deshawn Travel 2 Hospital Encounter Head and Neck Ene Polk, Christopher ng due to food in larynx <Subsequent> (Primary Dx); 2 Surgery Primary squamou s cell carcinoma of larynx Office Visit Pulmonology Slava Canseco Chronic obstruc tive 2 MD Nick pulmonary disease, Oyekanmi, not otherwise Liliana, CARAMEL MAKER specified Hospital Encounter Pulmonology Slava Canseco Chronic o bstructive 2 MD Nick pulmonary disea se, not otherwise specified Hospital Encounter Pulmonology Slava Canseco Chronic o bstructive 2 MD Nick pulmonary disea se, not otherwise specified Travel 2 Orders Only Head and Neck [place], Hemoptysis (Pr imary 2 Surgery OUMAR Miller Dx) Hospital Encounter Vascular Access Slava Canseco 2 and Procedures MD Jolly Romero Donald J Jr., RN Follow-Up Infectious [place], Cellulitis of n jasmeet 2 Diseases MD Deshawn Hospital Encounter Vascular Access Slava Canseco ter for 2 and Procedures MD Nick adjustment and Sarah Rudd, management of sales representative malt liquors access device Hospital Encounter Lab [place], Celluliti s of neck 2 MD Deshawn Orders Only Radiology Arreguin, 2 OUMAR Brown Telephone Head and Neck Talia Munoz 2 Surgery L, RN Travel 2 Refill Head and Neck Ene Polk, Primary squ amous cell 2 Surgery MD carcinoma of la rynx Hospital Encounter Radiology Ene [place], Primar y squamous cell 2 carcinoma of larynx Sara Harris, PhD Case Management Lisa Hollingsworth, RN Travel 2 Case Management Lisa Hollingsworth, RN Hospital Encounter Radiology Seymour, Encounter for 2 MD Deshawn adjustment and management of vascular access device Hospital Encounter Vascular Access Yobany Ahuja ter for adjustment and management of vascular access device (Primary Dx); 2 and Procedures MD Deshawn Cellulitis of neck Bird Lawton Jr., RN Case Management Lisa Hollingsworth RN Case Management Lisa Hollingsworth RN Travel 2 Orders Only Infectious [place], Cellulitis of n jasmeet 2 Diseases MD Deshawn (Primary Dx) Orders Only Infectious Okbasilysen, 2 Diseases MD Deshawn Documentation Pulmonology Po, Leobardo Zhang Apnea 2 T, AERIAL GUNNER SUPERINTENDENT Case Management Lisa Hollingsworth, RN Case Management Lisa Hollingsworth, RN Orders Only Infectious [place], Cellulitis of n jasmeet 2 Diseases MD Deshawn (Primary Dx) Orders Only Infectious [place], 2 Diseases MD Deshawn Consult Infectious Jose Luis Hay S, Cellulitis [...] ry squamous cell carcinoma of larynx; 2 MD Abnormal findin g on diagnostic imaging of other part of digestive tract Orders Only Radiology Lisa Naik MD Travel 2 Refill Internal Medicine Gavino, Hypokalemi a; 2 MD Cintia Hypophosphatemi a; Folate deficien cy; Hypomagnesemia Hospital Encounter Speech Pathology Ene Polk, Ap leanne 2 Kita Bejarano, CCC-HOME HEALTH CLINICAL SUPERVISOR Clinical Support Pulmonology Ida, Chronic ob structive 2 MD Kong pulmonary disease Dawson, with acute Syeda L, RN exacerbation Ancillary Procedure Radiology Ida, Chronic obstructive 2 MD Kong pulmonary disea se with acute exacerbation Orders Only Pulmonology Oyekanmi, Chronic obstruc tive 2 Liliana, CARAMEL MAKER pulmonary disea se, not otherwise specified Travel 2 Refill Radiation Oncology Alexandra De La Rosa, Primar y squamous cell carcinoma of larynx (Primary Dx); 2 PA Constipation, n ot otherwise specified Emergency Emergency Medicine Hilario Pardo MD Edema (Primary Dx); 2 Chronic obstruc tive pulmonary disease; Type 2 diabetes mellitus without complication; Primary squamou s cell carcinoma of larynx Orders Only Head and Neck Genaro, Primary squamo us cell 2 Surgery MD Shilo carcinoma of l arynx (Primary Dx) Travel 2 Telephone Head and Neck Jazzmine Tee, 2 Surgery RN Orders Only Head and Neck Ene Polk, [...] MD Shailesh (Primary Dx) Nurse Triage Lisa Pressley RN Surgery Ene [place], TRACHEOSTOMY - 2 MD PLANNED Anesthesia Event Nilam Hollingsworth 2 MD Urmila Ruby Miguel, CRNA Hospital Encounter Head and Neck Ene [place], Breat gary-related sleep disorder (Primary Dx); 2 - Surgery MD Dyspnea, not ot herwise specified; Acute and [...] and Neck Ene Polk, Dyspnea , not 2 Surgery MD otherwise speci fied (Primary Dx) Travel 2 Hospital Encounter Pulmonology Ida, Chronic obstructive 2 MD Kong pulmonary disea se with acute exacerbation Office Visit Pulmonology Gavino, Sarath (Primar y Dx); 2 MD Cintia Hypercapnia; Oyekanmi, Chronic obstruc tive pulmonary disease, not otherwise specified [facility] Encounter Pulmonology Arian Mancia ia; 2 MD Cintia Chronic obstruc tive pulmonary disease, not otherwise specified Hospital Encounter Speech Pathology Alexandra De La Rosa, Pr imary squamous cell 2 PA carcinoma of larynx Rebecca Brown, CCC-HOME HEALTH CLINICAL SUPERVISOR Travel 2 Prep for Surgery Head and Neck Alpard, Primary sq uamous cell 2 Surgery Oralia Jamil, PA carcinoma of larynx (Primary Dx) Ancillary Procedure Radiology Amber Park 2 MD Orders Only Pulmonology de Lumban, Chronic obstruc tive 2 Shirley Gallego NP pulmonary disea se with acute exacerbation (P rimary Dx) Anesthesia Event Lisa Rutherford MD Surgery Endoscopy Yong Palma MD DIAGNOSTIC UPP ER 2 GASTROINTESTINA L ENDOSCOPY Anesthesia Event Endoscopy Padmini Armendariz 2 MD Orders Only Head and Neck Eddie Wells 2 Surgery F, Prep for Surgery Gastroenterology, Elizabeth Hammer, Other iron deficiency 2 Hepatology & [employer] P[employer]ER anemia (Primary Dx) Nutrition Travel 2 Hospital Encounter GIM/Phase 1 Elamin, Cody, Hypopha ryngeal lesion (Primary Dx); 2 - MD Encounter for adjustment and management of vascular access device; Sofya Elmore MD Primary squamous cell carcinoma of laryn x; 2 Eugene, Hypokalemia; Madelin Serra, Hypophosphat emia; Folate deficiency; Gavino, Hypomagnesemia; MD Cintia Hypercapnia; Amber Park, Chronic obstr uctive pulmonary disease, not otherwise specified; Melena; Chronic [...] Speech Pathology Ene Polk, Dy sphagia, 2 oropharyngeal phase Kita Campos, CCC-HOME HEALTH CLINICAL SUPERVISOR Orders Only Radiation Oncology Alexandra De La Rosa, Primar y squamous cell 2 PA carcinoma of la rynx (Primary Dx) Telephone Proton Therapy Gloria 2 Wayne Israel RN Nutrition Slava Witt 2 MD Sarbjit Romero Timothy, RD Documentation Nutrition Lisa Christensen Hospital Encounter Head and Neck Ene [place], 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 (Primary Dx); 2 Surgery MD Abnormal findin gs on diagnostic imaging of skull and head, not elsewhere classified Hospital Encounter Radiology Ene [place], Dyspha vitaliy, 2 oropharyngeal phase Roberta Ortega CCC-HOME HEALTH CLINICAL SUPERVISOR Travel 2 Orders Only Nutrition Camilla Davenport [...] and Procedures MD Loy Romero Craig S, LIBRARY MEDIA SPECIALIST Hospital Encounter Radiology Rj Alexandra, Primar y squamous cell 2 PA carcinoma of la rynx Hospital Encounter Audiology Slava Canseco Sensorine ural hearing 2 MD Nick loss, bilateral Kerline, Candy, (Primary Dx) AuD Hospital Encounter Lab Alexandra De La Rosa, Primar y squamous cell 2 PA carcinoma of la rynx Orders Only Radiation Oncology Alexandra De La Rosa, Primar y squamous cell 2 PA carcinoma of la rynx (Primary Dx) Telephone Proton Therapy Lisa Castro RN Travel 2 Orders Only GastroenterJose jacobs Lauren Personal h istory of 2 Hepatology & Alta PA colonic polyp Nutrition (Primary Dx) Orders Only Proton Therapy Alexandra De La Rosa, Primary sq uamous cell 2 PA carcinoma of la rynx (Primary Dx) Telephone Proton Therapy Lisa Castro RN Documentation Head and Neck ClemonsHuan 2 Surgery H Nutrition Slava Witt 2 MD Ethel Romero Debra A, RD Documentation Speech Pathology Kita Campos 2 H, CCC-HOME HEALTH CLINICAL SUPERVISOR Documentation Speech Pathology Cathleen 2 Crista Mcintosh, DAHIANA-HOME HEALTH CLINICAL SUPERVISOR Orders Only Head and Neck Erasto, Anca Primary squ amous cell carcinoma of larynx (Primary Dx); 2 Medical Oncology H, SILK SPREADER Dysphagia, oropharyngeal phase Hospital Encounter Speech Pathology Alexandra De La Rosa, Ca nceled (Patient 2 PA Request) Crista Connolly CCC-HOME HEALTH CLINICAL SUPERVISOR Documentation Speech Pathology Lisa Connolly, CCC-HOME HEALTH CLINICAL SUPERVISOR Documentation Speech Pathology Lisa Connolly, CCC-HOME HEALTH CLINICAL SUPERVISOR Nutrition Nutrition Slava Canseco 2 MD Ethel Romero Debra A, RD Telephone Nutrition Camilla Davenport 2 A, RD Telephone Radiation Oncology Alexandra De La Rosa, 2 PA Telephone April Wylie, Discharge Adrien l 2 RN Orders Only GastroenterologyGenaro Ethan 2 Hepatology & MD Hilario Nutrition Orders Only Speech Pathology Caprice Nolen, Dysphagi a, 2 CCC-HOME HEALTH CLINICAL SUPERVISOR oropharyngeal p hase (Primary Dx) Anesthesia Event Endoscopy Braeden, 2 MD Delbert Gaines Maxy, CRNA Surgery Endoscopy Michael Lam DIAGNOSTIC UPP ER 2 D., GASTROCABRERA Mcintosh ENDOSCOPY Prep for Surgery Gastroenterology, Harman, Elizabeth, Iron d eficiency 2 Hepatology & [employer] P[employer]ER anemia, not oth erwise Nutrition specified (Prim tisha Dx) Hospital Encounter General Internal Vu, Hilario Garzon MD Chronic obstructive pulmonary disease (P rimary Dx); 2 - Medicine Alta Ferrell Primary squamo us cell carcinoma of larynx; MD Elza Type 2 diabetes mellitus without complic ation; 2 Rain, Anemia; Olegario Gamez MD Iron deficiency anemia, not otherwise sp ecified; Mancia, Aspiration pneu monia MD Rajendra Chamberlain Maria, MD Rubio, David, MD Fortique, Carla, MD Ancillary Procedure Radiology Slava Canseco Aspirati on pneumonia; 2 MD Nick Primary squamou s cell carcinoma of larynx Documentation Speech Pathology Lisa Lim, CCC-HOME HEALTH CLINICAL SUPERVISOR Telephone Proton Therapy Lisa Castro RN Orders Only Proton Therapy Alexandra De La Rosa, Lisa PA Orders Only Proton Therapy Davina Perez 2 D, PA Orders Only Proton Therapy Davina Perez Primary sq uamous cell 2 D, PA carcinoma of la rynx (Primary Dx) Travel 2 Telephone Proton Therapy Lisa Castro RN Hospital Encounter Speech Pathology Alexandra De La Rosa, Pr imary squamous cell 2 PA carcinoma of larynx Rebecca Brown, CCC-HOME HEALTH CLINICAL SUPERVISOR Orders Only Radiation Oncology Alexandra De La Rosa, Primar y squamous cell carcinoma of larynx (Primary Dx); 2 PA Aspiration pneu monia Orders Only Head and Neck Erasto, Anca Aspiration pneumonia (Primary Dx); 2 Medical Oncology H, SILK SPREADER Primary squ amous cell carcinoma of larynx Travel 2 Clinical Support Adelineid Alexandra De La Rosa Suspecte d COVID-19 (Primary Dx); 2 PA Primary squamous cell carcinoma of laryn x Margo Reyes, KWAN Travel 2 Refill Proton Therapy Alexandra De La Rosa, Primary sq uamous cell carcinoma of larynx; 2 PA 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; Neuropathic farida n Refill Internal Medicine Gavino, Hypokalemi a; 2 MD Cintia Hypomagnesemia; Hypophosphatemi a Orders Only Radiation Oncology Johanne Harry MD Oral muc ositis due to 2 radiation (Prim tisha Dx) Telephone Proton Therapy Lisa Castro RN Documentation Head and Neck ClemonsHuan israel 2 Surgery H Nutrition Nutrition Slava Canseco Primary squamou s cell 2 MD Nick carcinoma of larynx Camilla Davenport RD Documentation Nutrition Fermin, 2 Adele Orders Only Nutrition Camilla Davenport 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); 2 A, RD Laryngopharynge al reflux; Chronic obstruc tive pulmonary disease, not otherwise specified; Multiple nodule s of lung; Type 2 diabetes mellitus without complication; Swallowing pain ful; Severe protein- calorie malnutrition, not otherwise specified; Aspiration pneu monia Orders Only Proton Therapy Alexandra De La Rosa, Primary sq uamous cell 2 PA carcinoma of la rynx (Primary Dx) Documentation Head and Neck Huan Clemons 2 Surgery H Refill Proton Therapy Slava Canseco Oral mucositi s due to 2 MD Nick radiation Nutrition Slava Witt 2 MD Ethel Romero Debra A, RD Telephone Proton Therapy Lisa Castro RN Telemedicine Head and Neck Yumi Desir, Primary squa mous cell 2 Medical Oncology carcinoma of larynx Anca Maurer APN Telephone Thoracic Medicine Anca Maurer 2 IGNACIA Sullivan Orders Only Head and Neck Yumi Desir 2 Medical Oncology MD Orders Only Head and Neck Eliza Booth, KWAN Primary squ amous cell 2 Medical Oncology carcinoma o f larynx (Primary Dx) Hospital Encounter GIM/Phase 1 Christina Josette, Primary squamous cell carcinoma of larynx (Primary Dx); 2 - MD Syncope; Eugene, Hypokalemia; 2 Madelinsa Serra, Hypomagnesem ia; Pneumonia; Jackie Severe prote in-calorie malnutrition, not otherwise specified; Ino aguilar MD Neuropathy due to type 2 diabetes [...] la rynx (Primary Dx) Orders Only Radiation Oncology Slava Canseco 2, MD Travel 2 Infusion Infusion Services Alexandra De La Rosa, Primary squamous cell 2 PA carcinoma of larynx Ten Goodrich (Primary Dx) Thomas Rivera RN Nutrition Nutrition Slava Canseco 2, MD Nancy, Maame Jamil RD Office Visit Head and Neck Slava Canseco Primary squamo us cell 2 Medical Oncology MD Nick carcinoma of larynx Erasto, Anca H, SILK SPREADER Hospital Encounter Vascular Access Slava Canseco 2 and Procedures MD Leela Romero Bhumarat S RN Hospital Encounter Proton Therapy Slava Canseco 2, MD Hospital Encounter Proton Therapy Slava Canseco 2, MD Orders Only Proton Therapy Alexandra De La Rosa, Primary sq uamous cell 2 PA carcinoma of la rynx (Primary Dx) Orders Only Proton Therapy Kolchulany, Primary squam ous cell 2 Wayne Israel RN carcinoma of l arynx (Primary Dx) Orders Only Proton Therapy Alexandra De La Rosa, Primary sq uamous cell 2 PA carcinoma of la rynx (Primary Dx) Travel 2 Hospital Encounter Proton Therapy Slava Canseco 2, MD Travel 2 Hospital Encounter Infusion Services Yumi Desir, Pr imary squamous cell 2 MD carcinoma of larynx Yajaira, (Primary Dx) KWAN Maldonado Hospital Encounter Proton Therapy Slava Canseco 2, MD Hospital Encounter Lab Yumi Desir, Primary squamous cell 2 MD carcinoma of la rynx Travel 2 Hospital Encounter Proton Therapy Slava Canseco 2, MD Hospital Encounter Proton Therapy Alexandra De La Rosa, Prim tisha squamous cell carcinoma of larynx; 2 PA Severe protein- calorie malnutrition, not otherwise specified Documentation Speech Pathology Cathleen, 2 Crista Mcintosh CCC-HOME HEALTH CLINICAL SUPERVISOR Telephone Radiation Oncology AndCaprice calderón 2, MD Orders Only Proton Therapy Alexandra De La Rosa, Essential hypertension (Primary Dx); 2 PA Primary squamou s cell carcinoma of larynx Orders Only Proton Therapy Alexandra De La Rosa, Hypertensi on (Primary 2 PA Dx) Travel 2 Hospital Encounter Proton Therapy Slava Canseco 2, MD Orders Only Head and Neck Erasto, Anca Laryngophar yngeal reflux (Primary Dx); 2 Medical Oncology H, SILK SPREADER Primary squ amous cell carcinoma of larynx Travel 2 Office Visit Head and Neck Yumi Desir, Dick squa mous cell carcinoma of larynx (Primary Dx); 2 Medical Oncology MD Swallowing painful; Essential hyper tension Hospital Encounter Proton Therapy Slava Canseco 2 MD Nick Hospital Encounter Proton Therapy Slava Canseco 2, MD Orders Only Proton Therapy Slava Canseco Primary squam ous cell carcinoma of larynx (Primary Dx); 2 MD Nick Severe protein- calorie malnutrition, not otherwise specified Documentation Proton Therapy Maame Cruz, 2 RD Orders Only Radiation Oncology Alexandra De La Rosa, Primar y squamous cell carcinoma of larynx (Primary Dx); 2 PA Thick sputum; Constipation, n ot otherwise specified Travel 2 Hospital Encounter Proton Therapy Slava Canseco 2 MD Nick Travel 2 Infusion Infusion Services Yumi Desir, Primary squamous cell 2 MD carcinoma of larynx Francisco, (Primary Dx) Christy Gallego RN Hospital Encounter Proton Therapy Slava Canseco 2, MD Hospital Encounter Lab Yumi Desir, Primary squamous cell 2 carcinoma of la rynx Travel 2 Hospital Encounter Audiology Slava Canseco Sensorine ural hearing 2 MD Nick loss, bilateral Kerline, Candy, (Primary Dx) AuD Hospital Encounter Proton Therapy Slava Canseco 2 MD Nick Travel 2 Orders Only Head and Neck Yumi Desir, 2 Medical Oncology Hospital Encounter Proton Therapy Slava Canseco 2 MD Nick Hospital Encounter Proton Therapy Slava Canseco 2 MD Nick Travel 2 Documentation Proton Therapy Maame Cruz, 2 RD Orders Only Head and Neck Erasto, Anca Primary squ amous cell 2 Medical Oncology H SILK SPREADER carcinoma o f larynx (Primary Dx) Emergency Emergency Medicine Jerel, Hypertens ion (Primary Dx); 2 MD Nichole Type 2 diabetes mellitus without complication; Primary squamou s cell carcinoma of larynx Hospital Encounter Proton Therapy Slava Canseco 2, MD Travel 2 Hospital Encounter Proton Therapy Slava Canseco 2, MD Hospital Encounter Proton Therapy Alexandra De La Rosa, Prim tisha squamous cell 2 PA carcinoma of larynx Slava Canseco MD Documentation Radiation Oncology Slava Canseco 2, MD Travel 2 Hospital Encounter Infusion Services Yumi Desir, Pr imary squamous cell 2 carcinoma of larynx Panganiban, (Primary Dx) Sam Garzon RN Hospital Encounter Lab Yumi Desir, Primary [...] cell carcinoma of laryn x Erasto, Anca H, SILK SPREADER Hospital Encounter Speech Pathology Ene Polk, Dy sphagia, 2 oropharyngeal phase Christy Chavez, [facility]-HOME HEALTH CLINICAL SUPERVISOR Hospital Encounter Proton Therapy Slava Canseco 2, MD Hospital Encounter Proton Therapy Slava Canseco 2, MD Documentation Proton Therapy Maame Cruz, 2 RD Orders Only Radiation Oncology Slava Canseco Oral muco sitis due to 2 MD Nick radiation (Prim tisha Dx) Orders Only Proton Therapy Gloria, Primary squam ous cell 2 Wayne M, RN carcinoma of l arynx (Primary Dx) Travel 2 Hospital Encounter Proton Slava Landa 2, MD Hospital Encounter Proton Therapy Slava Canseoc 2, MD Travel 2 Hospital Encounter Infusion Services Yumi Desir, Pr imary squamous cell 2 MD carcinoma of larynx Yue Alaniz, (Primary Dx) RN Hospital Encounter Proton Slava Landa 2, MD Hospital Encounter Proton Therapy Slava Canseco 2, MD Hospital Encounter Lab Yumi Desir, Primary squamous cell 2 carcinoma of la rynx Orders Only Radiation Oncology Alexandra De La Rosa, Primar y squamous cell carcinoma of larynx (Primary Dx); 2 PA Essential hyper tension Orders Only Radiation Oncology Alexandra De La Rosa, Primar y squamous cell carcinoma of larynx (Primary Dx); 2 PA Thick sputum Travel 2 Hospital Encounter Proton Slava Landa 2, MD Travel 2 Hospital Encounter Proton Slava Landa 2, MD Travel 2 Hospital Encounter Proton Slava Landa 2, MD Hospital Encounter Proton Slava Landa 2, MD Hospital Encounter Speech Pathology Alexandra De La Rosa, Pr imary squamous cell 2 PA carcinoma of larynx Crista Connolly, CCC-HOME HEALTH CLINICAL SUPERVISOR Office Visit Head and Neck Yumi Desir, 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); 2 Medical Oncology MD Swallowing painful; Serum creatinin e raised; Hypomagnesemia Documentation Proton Therapy Maame Cruz, 2 RD Travel 2 Hospital Encounter Proton Slava Landa 2, MD Travel 2 Hospital Encounter Proton Slava Landa 2, MD Hospital Encounter Infusion Services Yumi Desir, Pr imary squamous cell 2 carcinoma of la rynx (Primary Dx) Hospital Encounter Lab Yumi Desir, Primary squamous cell 2 carcinoma of la rynx Orders Only Head and Neck Alyse Polk 2 Medical Oncology Savannah, Denise Orders Only Head and Neck Yumi Desir, 2 Medical Oncology Travel 2 Hospital Encounter Proton Therapy Slava Canseco 1 MD Nick Documentation Radiation Oncology Romeo Hein 1 MD Travel 1 Office Visit Head and Neck [place], 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); 1 Medical Oncology MD Brenda Encounter f or antineoplastic chemotherapy Hospital Encounter Proton Therapy Yue Stahl 1 MD Piero Eagle Anna, MD Hospital Encounter Proton Therapy Slava Canseco 1 MD Nick Travel 1 Hospital Encounter Proton Therapy Slava Canseco 1 MD Nick Nutrition Nutrition Slava Canseco 1 MD Nick Nancy, Maame Jamil, ANDRÉS Hospital Encounter Proton Therapy Slava Canseco 1 MD Nick Travel 1 Infusion Infusion Services Yumi Desir, Primary squamous cell 1 carcinoma of larynx Cole Rosenthal, (Primary Dx) RN Hospital Encounter Proton Therapy Slava Canseco 1 MD Nick Hospital Encounter Lab Yumi Desir, 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 Travel 1 Office Visit Head and Neck Yumi Desir, Primary squa mous cell 1 Medical Oncology carcinoma o f larynx Hospital Encounter Proton Therapy Slava Canseco 1 MD Nick Hospital Encounter Proton Therapy Slava Canseco 1 MD Nick Orders Only Proton Therapy Alexandra De La Rosa, Primary sq uamous cell carcinoma of larynx (Primary Dx); 1 PA 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; Radiation derma titis; Neuropathic farida n Travel 1 Hospital Encounter Proton Therapy Slava Canseco 1 MD Nick Travel 1 Hospital Encounter Proton Therapy Slava Canseco 1 MD Nick Infusion Infusion Services Yumi Desir, Primary squamous cell 1 carcinoma of larynx Roc James (Primary Dx) Elza PETERSON, RN Hospital Encounter Lab Yumi Desir, 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 Hospital Encounter Proton Therapy Slava Canseco 1 MD Nick Travel 1 Hospital Encounter Proton Therapy Slava Canseco 1 MD Nick Documentation Radiation Oncology Caprice Nguyen 1 MD [place] Travel 1 Nutrition Nutrition Slava Canseco 1 MD Nick Nancy, Maame Jamil, ANDRÉS Orders Only Head and Neck Ene Polk, Dysphagia, 1 Surgery MD oropharyngeal p hase (Primary Dx) Hospital Encounter Radiology Alexandra De La Rosa, Primar y squamous cell 1 PA carcinoma of larynx Cady Zuleta, CCC-HOME HEALTH CLINICAL SUPERVISOR Travel 1 Hospital Encounter Proton Therapy Slava Canseco 1 MD Nick Orders Only Head and Neck Erasto, Anca 1 Medical Oncology Laurie SILK SPREADER Documentation Head and Neck Clemons Huan 1 Surgery H Documentation Radiation Oncology Slava Canseco 1 MD Nick Multidisciplinary Head and Neck Melita, 1 Visit Surgery OUMAR Lara Orders Only Head and Neck Yumi Desir, Primary squa mous cell 1 Medical Oncology carcinoma o f larynx (Primary Dx) Consult Head and Neck Yumi Desir, 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); 1 Medical Oncology Tobacco use ; Multiple nodule [...] of la rynx Clinical Support Alexandra Sykes, Encounsakshi r for observation for other suspected exposure to biological agent ruled out (Primary Dx); 1 PA Primary squamous cell carcinoma of laryn x Thao Baldwin, RADHA Documentation Radiation Oncology Slava Canseco 1 MD Nick Documentation Head and Neck Arina Robles R 1 Medical Oncology Documentation Radiation Oncology Slava Canseco 1 MD Nick Orders Only Radiation Oncology Jose Martin Sweeney 1 MD Diana PhD Travel 1 Orders Only Proton Therapy Slava Canseco Primary squam ous cell 1 MD Nick carcinoma of la rynx (Primary Dx) Hospital Encounter Dental Oncology Yobany Jovel ter for 1 Elva, DDS observation for other suspected disea se ruled out Hospital Encounter Dental Oncology Jolene Jovel y [...] Tobac co use (Primary Dx); 1 Surgery Primary squamou s cell carcinoma of larynx; [...] carcinoma of laryn x Trixie Hollingsworth, KWAN Hospital Encounter Lab Yumi Desir, Primary squamous cell 1 MD carcinoma of la rynx Orders Only Radiation Oncology Jose Martin Sweeney Primary squamous cell 1 MD Diana PhD carcinoma of larynx (Primary Dx) Travel 1 Hospital Encounter Lab Alexandra De La Rosa, Primar y squamous cell 1 PA carcinoma of la rynx Ancillary Procedure Radiology RjAlexandra, Prima ry squamous cell 1 PA carcinoma of la rynx Travel 1 Travel 1 Orders Only Head and Neck Yumi Desir, Primary squa mous cell 1 Medical Oncology MD carcinoma o f larynx (Primary Dx) Orders [...] Steve Munguia MD Xu, Ya, MD after 04/18/2021 Immunizations Name Administration Dates Next Due Influenza TIV (IM) 02/22/2022 Moderna SARS-CoV-2 Monovalent Booster Vaccination (50 2020 mcg/0.25 mL) Moderna SARS-CoV-2 Vaccination 08/07/2020, 07/10/2020 Pfizer SARS-CoV-2 Vaccination 12+ y.o. 02/22/2022 Surgical History Surgery Date Site/Laterality Comments CHOLECYSTECTOMY FEMORAL ARTERY STENT Left Left leg [place] ESOPHAGOGASTRODUODENOSCOPY 08/29/2021 Esophagus/N/A Pr ocedure: DIAGNOSTIC TRANSORAL DIAGNOSTIC UPPER GASTR OINTESTINAL ENDOSCOPY; Surge on: Michael Lam MD; Location: MAIN ENDOSCOPY; Servi ce: GASTROENTEROLOGY [place] COLONOSCOPY FLX DX W/COLLJ SPEC 08/29/2021 N/A Procedure: DIAGNOSTIC WHEN PFRMD FLEXIBLE COLONOS COPY PROXIMAL TO SPLE GINA FLEXURE; Surgeon : Michael Lam MD; L ocation: MAIN ENDOSCOPY; Service: GASTROENTEROLOGY [place] ESOPHAGOGASTRODUODENOSCOPY 10/18/2021 Esophagus/N/A Pr ocedure: DIAGNOSTIC TRANSORAL DIAGNOSTIC UPPER GASTR OINTESTINAL ENDOSCOPY; Surge on: Ynog Palma MD; Locati on: MAIN ENDOSCOPY; Servi ce: GASTROENTEROLOGY [place] GI IMAG INTRALUMINAL 10/18/2021 N/A Procedur e: INTRALUMINAL ESOPHAGUS-ILEUM W/I&R GASTROINTE STINAL TRACT IMAGING OF ESOPH JENNIFER THROUGH ILEUM; S urgeon: Yong Palma MD; Lo cation: MAIN ENDOSCOPY; Service: GASTROENTEROLOGY [place] TRACHEOSTOMY, PLANNED 11/08/2021 Neck/Midline Procedu re: TRACHEOSTOMY - PLANNED; Surge on: Samantha Escobar; Location: MAIN O R; Service: HN - HE AD & NECK SURGERY [place] ESOPHAGOSCOPY FLEXIBLE TRANSORAL 11/08/2021 Esophagus/N/ A Procedure: DIAGNOSTIC DIAGNOSTIC FLEXIBLE OR RIGI D ESOPHAGOSCOPY; S urgeon: Samantha Escobar; Location: MAIN O R; Service: HN - HE AD & NECK SURGERY [place] LARYNGOSCOPY,DIRCT,OP,BIOPSY 11/08/2021 Mouth/N/A Procedure: DIRECT OPERATIVE LARYNG OSCOPY WITH BIOPSY; Nikita geon: Samantha Escobar; Location: MAIN O R; Service: HN - HE AD & NECK SURGERY [place] REMOVAL OF LARYNX 04/05/2022 Neck/Bilateral Procedure: COMPLETE LARYNGECTOMY, WI THOUT RADICAL NECK DIS SECTION; Surgeon: Ene Polk MD; Location: [facility] IN OR; Service: HN - HE AD & NECK SURGERY Medical devices from this surgery are in the Medical Devices section. [place] FREE MUSC-SKIN FLAP W/MICROVASC 04/05/2022 N/A Procedure: FREE MUSCLE ANAST OR MYOCUTANEOUS FLAP WITH MICRVASCULA R ANASTOMOSIS; Nikita geon: Shruthi Styles MD; Location: MAIN O R; Service: PLS - P LASTIC SURGERY Medical devices from this surgery are in the Medical Devices section. [place] EXCIS TRACH LESN,CERVICAL 04/05/2022 Neck/Midline Pro cedure: MOBILIZATION OF TRACHEA; Surg jay: Brenton Molina MD; Location: MAIN O R; Service: THRCV - THORACIC SURGERY Medical devices from this surgery are in the Medical Devices section. [place] PARTIAL REMOVAL OF PHARYNX 04/05/2022 Neck/Midline Pr ocedure: RESECTION OF ANTERIOR CERVICA L ESOPHAGUS; Surge on: Samantha Escobar; Location: MAIN O R; Service: HN - HE AD & NECK SURGERY Medical devices from this surgery are in the Medical Devices section. [place] FULL THICK GRFT SCALP,ARM,LEG 04/05/2022 Groin/Left Procedure: FULL <20SQC THICKNESS GRAFT OF SCALP, ARMS, AND /OR LEGS; Surgeon: Samantha Styles MD; Loc ation: MAIN OR; Service : PLS - PLASTIC SURGERY Medical devices from this surgery are in the Medical Devices section. Medical History Medical History Date Comments Type [...] sputum 06/29/2021 Tinnitus 06/29/2021 Tobacco use 04/26/2021 Personal history of chemotherapy History of radiation therapy Hereditary and idiopathic neuropathy, unspecified Pneumonia Dependence on supplemental oxygen Gastroesophageal reflux disease Thrombocytopenia Encounter for blood transfusion Family History Medical History Relation Name Comments Breast cancer Mother Relation Name Status Comments Mother Social History Tobacco Use Types Packs/Day Years Used Date Smoking Tobacco: Former Cigarettes 1.5 47 11/1973 - 09/30/2021 Smokeless Tobacco: Never Tobacco Cessation: Counseling Given: Yes Alcohol Use Standard Drinks/Week Comments Not Currently 0 (1 standard drink = 0.6 oz pure alcoho l) Sex Assigned at Date Recorded Male 04/26/2021 3:55 PM [employer] Job Start Date Occupation Industry Not on file Not on file Not on file Travel History Travel Start Travel End [place] 04/28/2021 05/01/2021 COVID-19 Exposure Response Date Recorded In the last 10 days, have you been in contact with No / Unsu re 04/05/2022 10:57 PM CDT someone who was confirmed or suspected to have Coronavirus/COVID-19? Obstetrics History Last Filed Vital Signs Vital Sign Reading Time Taken Comments Blood Pressure 145/56 04/16/2022 11:10 AM [employer] Pulse 72 04/16/2022 11:10 AM [employer] Temperature 36.4 C (97.5 F) 04/16/2022 7:25 AM [employer] Respiratory Rate 18 04/16/2022 11:10 AM [employer] Oxygen Saturation 96% 04/16/2022 11:10 AM [employer] Inhaled Oxygen Concentration - - Weight 58.6 kg (129 lb 3 oz) 04/05/2022 9:25 PM CDT Height 166 cm (5' 5.35") 04/05/2022 9:25 PM CDT Body Mass Index 21.27 04/05/2022 9:25 PM CDT Plan of Treatment Date Type Specialty Care Team Description 04/18/2022 Appointment Lab Ene Polk MD [facility] [place], [place] [address] (Rosario rk) 04/24/2022 Appointment Pain Medicine Mine Car Repairer, ChuckSamantha [facility] [place], [place] [address] (Rosario rk) 05/16/2022 Appointment Radiology Ene Polk MD [facility] [place], [place] [address] (Wo rk) 05/25/2022 Appointment Lab Deshawn Ahuja MD [address] [place], [place] [address] (Rosario rk) 05/25/2022 Follow-Up Infectious Diseases Oumar Ahuja MD [address] [place], [place] [address] (Rosario rk) 05/25/2022 Appointment Speech Pathology Paul Neville PA [address] [place] [address] Christy Chavez, [facility]-HOME HEALTH CLINICAL SUPERVISOR [address] [place] [phone] 07/27/2022 Follow-Up Pulmonology Slava Canseco MD [address] [place] [id number] Liliana Martin NP [address] [place] [phone] 08/24/2022 Appointment Lab Ruben Cannon MD [address] [place] [phone] (Wo rk) 08/24/2022 Follow-Up Cardiology Ruben Cannon MD [address] [place] [phone] (Wo rk) Health Maintenance Due Date Last Done Comments COVID-19 Vaccination (4 - 04/19/2022 02/22/2022, 04/16/2021 , Booster) 08/07/2020, Additional history exists Medical Devices Implanted Type Area Piano Regulator Device Shelf Model / Identifier Expiration Serial / Date Lot Batch Still Operator Microvascular Anastomotic Device 3.0mm - [id number] Card ioPulm Right: [employer] ZHOU 08/16/2026 [id number] / Implanted: Qty: 1 on 04/05/2022 by Shruthi Styles MD at [facility] / [id number] Stent Stent Description: left side/aorta Procedures Procedure Name Priority Date/Time Associated Comments Diagnosis POC GLUCOSE SCREEN Routine 04/16/2022 5:53 Result s for this AM [employer] procedure are i n the results section. CALCIUM LEVEL TOTAL AM 04/16/2022 4:00 Resul ts for this AM [employer] procedure are i n the results section. .GLOMERULAR FILTRATION AM 04/16/2022 4:00 Re sults for this RATE AM [employer] procedure are i n the results section. SERUM CREATININE AM 04/16/2022 4:00 Results for this AM [employer] procedure are i n the results section. ELECTROLYTE PANEL AM 04/16/2022 4:00 Results for this AM [employer] procedure are i n the results section. BLOOD UREA NITROGEN AM 04/16/2022 4:00 Resul ts for this AM [employer] procedure are i n the results section. GLUCOSE LEVEL AM 04/16/2022 4:00 Results for this AM [employer] procedure are i n the results section. COMPLETE BLOOD COUNT W/ AM 04/16/2022 4:00 R esults for this INDICES AM [employer] procedure are i n the results section. BASIC METABOLIC PANEL, AM 04/16/2022 4:00 CALCIUM TOTAL AM [employer] PHOSPHORUS LEVEL AM 04/16/2022 4:00 Results for this AM [employer] procedure are i n the results section. MAGNESIUM LEVEL AM 04/16/2022 4:00 Results f or this AM [employer] procedure are i n the results section. POC GLUCOSE SCREEN Routine 04/15/2022 11:57 Resul ts for this PM [employer] procedure are i n the results section. POC GLUCOSE SCREEN Routine 04/15/2022 5:31 Result s for this PM [employer] procedure are i n the results section. CALCIUM LEVEL TOTAL Routine 04/15/2022 3:41 Resul ts for this PM [employer] procedure are i n the results section. .GLOMERULAR FILTRATION Routine 04/15/2022 3:41 Re sults for this RATE PM [employer] procedure are i n the results section. SERUM CREATININE Routine 04/15/2022 3:41 Results for this PM [employer] procedure are i n the results section. ELECTROLYTE PANEL Routine 04/15/2022 3:41 Results for this PM [employer] procedure are i n the results section. BLOOD UREA NITROGEN Routine 04/15/2022 3:41 Resul ts for this PM [employer] procedure are i n the results section. GLUCOSE LEVEL Routine 04/15/2022 3:41 Results for this PM [employer] procedure are i n the results section. BASIC METABOLIC PANEL, Routine 04/15/2022 3:41 CALCIUM TOTAL PM [employer] POC GLUCOSE SCREEN Routine 04/15/2022 12:05 Resul ts for this PM [employer] procedure are i n the results section. POC GLUCOSE SCREEN Routine 04/15/2022 6:37 Result s for this AM [employer] procedure are i n the results section. CALCIUM LEVEL TOTAL AM 04/15/2022 5:09 Resul ts for this AM [employer] procedure are i n the results section. .GLOMERULAR FILTRATION AM 04/15/2022 5:09 Re sults for this RATE AM [employer] procedure are i n the results section. SERUM CREATININE AM 04/15/2022 5:09 Results for this AM [employer] procedure are i n the results section. ELECTROLYTE PANEL AM 04/15/2022 5:09 Results for this AM [employer] procedure are i n the results section. BLOOD UREA NITROGEN AM 04/15/2022 5:09 Resul ts for this AM [employer] procedure are i n the results section. GLUCOSE LEVEL AM 04/15/2022 5:09 Results for this AM [employer] procedure are i n the results section. PHOSPHORUS LEVEL AM 04/15/2022 5:09 Results for this AM [employer] procedure are i n the results section. COMPLETE BLOOD COUNT W/ AM 04/15/2022 5:09 R esults for this INDICES AM [employer] procedure are i n the results section. BASIC METABOLIC PANEL, AM 04/15/2022 5:09 CALCIUM TOTAL AM [employer] MAGNESIUM LEVEL AM 04/15/2022 5:09 Results f or this AM [employer] procedure are i n the results section. POC GLUCOSE SCREEN Routine 04/15/2022 12:01 Resul ts for this AM [employer] procedure are i n the results section. POC GLUCOSE SCREEN Routine 04/14/2022 8:17 Result s for this PM [employer] procedure are i n the results section. CALCIUM LEVEL TOTAL Routine 04/14/2022 2:56 Resul ts for this PM [employer] procedure are i n the results section. .GLOMERULAR FILTRATION Routine 04/14/2022 2:56 Re sults for this RATE PM [employer] procedure are i n the results section. SERUM CREATININE Routine 04/14/2022 2:56 Results for this PM [employer] procedure are i n the results section. ELECTROLYTE PANEL Routine 04/14/2022 2:56 Results for this PM [employer] procedure are i n the results section. BLOOD UREA NITROGEN Routine 04/14/2022 2:56 Resul ts for this PM [employer] procedure are i n the results section. GLUCOSE LEVEL Routine 04/14/2022 2:56 Results for this PM [employer] procedure are i n the results section. BASIC METABOLIC PANEL, Routine 04/14/2022 2:56 CALCIUM TOTAL PM [employer] POC GLUCOSE SCREEN Routine 04/14/2022 12:55 Resul ts for this PM [employer] procedure are i n the results section. POC GLUCOSE SCREEN Routine 04/14/2022 5:47 Result s for this AM [employer] procedure are i n the results section. CALCIUM LEVEL TOTAL AM 04/14/2022 3:26 Resul ts for this AM [employer] procedure are i n the results section. .GLOMERULAR FILTRATION AM 04/14/2022 3:26 Re sults for this RATE AM [employer] procedure are i n the results section. SERUM CREATININE AM 04/14/2022 3:26 Results for this AM [employer] procedure are i n the results section. ELECTROLYTE PANEL AM 04/14/2022 3:26 Results for this AM [employer] procedure are i n the results section. BLOOD UREA NITROGEN AM 04/14/2022 3:26 Resul ts for this AM [employer] procedure are i n the results section. GLUCOSE LEVEL AM 04/14/2022 3:26 Results for this AM [employer] procedure are i n the results section. PHOSPHORUS LEVEL AM 04/14/2022 3:26 Results for this AM [employer] procedure are i n the results section. COMPLETE BLOOD COUNT W/ AM 04/14/2022 3:26 R esults for this INDICES AM [employer] procedure are i n the results section. BASIC METABOLIC PANEL, AM 04/14/2022 3:26 CALCIUM TOTAL AM [employer] MAGNESIUM LEVEL AM 04/14/2022 3:26 Results f or this AM [employer] procedure are i n the results section. POC GLUCOSE SCREEN Routine 04/14/2022 12:10 Resul ts for this AM [employer] procedure are i n the results section. VERIFY CATHETER TIP Routine 04/13/2022 10:32 Resu lts for this PLACEMENT PM [employer] procedure are i n the results section. XR CHEST 1 VW POST Routine 04/13/2022 9:41 Result s for this IMPLANT PM [employer] procedure are i n the results section. POC GLUCOSE SCREEN Routine 04/13/2022 6:42 Result s for this PM [employer] procedure are i n the results section. INSERT VASCULAR ACCESS Routine 04/13/2022 5:30 Encounter for R esults for this DEVICE PM [employer] adjustment and procedure are in management of the results vascular access section. device VASCULAR ACCESS Routine 04/13/2022 3:49 Results f or this ULTRASOUND PM [employer] procedure are i n the results section. CALCIUM LEVEL TOTAL Routine 04/13/2022 2:11 Resul ts for this PM [employer] procedure are i n the results section. .GLOMERULAR FILTRATION Routine 04/13/2022 2:11 Re sults for this RATE PM [employer] procedure are i n the results section. SERUM CREATININE Routine 04/13/2022 2:11 Results for this PM [employer] procedure are i n the results section. ELECTROLYTE PANEL Routine 04/13/2022 2:11 Results for this PM [employer] procedure are i n the results section. BLOOD UREA NITROGEN Routine 04/13/2022 2:11 Resul ts for this PM [employer] procedure are i n the results section. GLUCOSE LEVEL Routine 04/13/2022 2:11 Results for this PM [employer] procedure are i n the results section. BASIC METABOLIC PANEL, Routine 04/13/2022 2:11 CALCIUM TOTAL PM [employer] POC GLUCOSE SCREEN Routine 04/13/2022 12:23 Resul ts for this PM [employer] procedure are i n the results section. GENERAL LABORATORY ADD Now 04/13/2022 8:39 Re sults for this ON TEST AM [employer] procedure are i n the results section. POC GLUCOSE SCREEN Routine 04/13/2022 6:07 Result s for this AM [employer] procedure are i n the results section. PHOSPHORUS LEVEL AM 04/13/2022 3:19 Results for this AM [employer] procedure are i n the results section. CALCIUM LEVEL TOTAL AM 04/13/2022 3:19 Resul ts for this AM [employer] procedure are i n the results section. .GLOMERULAR FILTRATION AM 04/13/2022 3:19 Re sults for this RATE AM [employer] procedure are i n the results section. SERUM CREATININE AM 04/13/2022 3:19 Results for this AM [employer] procedure are i n the results section. ELECTROLYTE PANEL AM 04/13/2022 3:19 Results for this AM [employer] procedure are i n the results section. BLOOD UREA NITROGEN AM 04/13/2022 3:19 Resul ts for this AM [employer] procedure are i n the results section. GLUCOSE LEVEL AM 04/13/2022 3:19 Results for this AM [employer] procedure are i n the results section. COMPLETE BLOOD COUNT W/ AM 04/13/2022 3:19 R esults for this INDICES AM [employer] procedure are i n the results section. BASIC METABOLIC PANEL, AM 04/13/2022 3:19 CALCIUM TOTAL AM [employer] MAGNESIUM LEVEL AM 04/13/2022 3:19 Results f or this AM [employer] procedure are i n the results section. POC GLUCOSE SCREEN Routine 04/13/2022 12:29 Resul ts for this AM [employer] procedure are i n the results section. POC GLUCOSE SCREEN Routine 04/12/2022 6:04 Result s for this PM [employer] procedure are i n the results section. GENERAL LABORATORY ADD Now 04/12/2022 3:51 Re sults for this ON TEST PM [employer] procedure are i n the results section. NT PRO BNP Routine 04/12/2022 2:33 Results for this PM [employer] procedure are i n the results section. CALCIUM LEVEL TOTAL Routine 04/12/2022 2:33 Resul ts for this PM [employer] procedure are i n the results section. .GLOMERULAR FILTRATION Routine 04/12/2022 2:33 Re sults for this RATE PM [employer] procedure are i n the results section. SERUM CREATININE Routine 04/12/2022 2:33 Results for this PM [employer] procedure are i n the results section. ELECTROLYTE PANEL Routine 04/12/2022 2:33 Results for this PM [employer] procedure are i n the results section. BLOOD UREA NITROGEN Routine 04/12/2022 2:33 Resul ts for this PM [employer] procedure are i n the results section. GLUCOSE LEVEL Routine 04/12/2022 2:33 Results for this PM [employer] procedure are i n the results section. BASIC METABOLIC PANEL, Routine 04/12/2022 2:33 CALCIUM TOTAL PM [employer] POC GLUCOSE SCREEN Routine 04/12/2022 11:55 Resul ts for this AM [employer] procedure are i n the results section. POC GLUCOSE SCREEN Routine 04/12/2022 6:14 Result s for this AM [employer] procedure are i n the results section. CALCIUM LEVEL TOTAL AM 04/12/2022 3:35 Resul ts for this AM [employer] procedure are i n the results section. .GLOMERULAR FILTRATION AM 04/12/2022 3:35 Re sults for this RATE AM [employer] procedure are i n the results section. SERUM CREATININE AM 04/12/2022 3:35 Results for this AM [employer] procedure are i n the results section. ELECTROLYTE PANEL AM 04/12/2022 3:35 Results for this AM [employer] procedure are i n the results section. BLOOD UREA NITROGEN AM 04/12/2022 3:35 Resul ts for this AM [employer] procedure are i n the results section. GLUCOSE LEVEL AM 04/12/2022 3:35 Results for this AM [employer] procedure are i n the results section. COMPLETE BLOOD COUNT W/ AM 04/12/2022 3:35 R esults for this INDICES AM [employer] procedure are i n the results section. BASIC METABOLIC PANEL, AM 04/12/2022 3:35 CALCIUM TOTAL AM [employer] MAGNESIUM LEVEL AM 04/12/2022 3:35 Results f or this AM [employer] procedure are i n the results section. POC GLUCOSE SCREEN Routine 04/12/2022 12:07 Resul ts for this AM [employer] procedure are i n the results section. CALCIUM LEVEL TOTAL Routine 04/11/2022 6:20 Resul ts for this PM [employer] procedure are i n the results section. .GLOMERULAR FILTRATION Routine 04/11/2022 6:20 Re sults for this RATE PM [employer] procedure are i n the results section. SERUM CREATININE Routine 04/11/2022 6:20 Results for this PM [employer] procedure are i n the results section. ELECTROLYTE PANEL Routine 04/11/2022 6:20 Results for this PM [employer] procedure are i n the results section. BLOOD UREA NITROGEN Routine 04/11/2022 6:20 Resul ts for this PM [employer] procedure are i n the results section. GLUCOSE LEVEL Routine 04/11/2022 6:20 Results for this PM [employer] procedure are i n the results section. BASIC METABOLIC PANEL, Routine 04/11/2022 6:20 CALCIUM TOTAL PM [employer] POC GLUCOSE SCREEN Routine 04/11/2022 6:04 Result s for this PM [employer] procedure are i n the results section. POC GLUCOSE SCREEN Routine 04/11/2022 12:55 Resul ts for this PM [employer] procedure are i n the results section. MANUAL DIFFERENTIAL Now 04/11/2022 12:44 Resu lts for this PM [employer] procedure are i n the results section. Results CBC Now 04/11/2022 12:44 Results for this PM [employer] procedure are i n the results section. COMPLETE BLOOD COUNT W/ Now 04/11/2022 12:44 DIFFERENTIAL PM [employer] CALCIUM LEVEL TOTAL Routine 04/11/2022 7:59 Resul ts for this AM [employer] procedure are i n the results section. .GLOMERULAR FILTRATION Routine 04/11/2022 7:59 Re sults for this RATE AM [employer] procedure are i n the results section. SERUM CREATININE Routine 04/11/2022 7:59 Results for this AM [employer] procedure are i n the results section. ELECTROLYTE PANEL Routine 04/11/2022 7:59 Results for this AM [employer] procedure are i n the results section. BLOOD UREA NITROGEN Routine 04/11/2022 7:59 Resul ts for this AM [employer] procedure are i n the results section. GLUCOSE LEVEL Routine 04/11/2022 7:59 Results for this AM [employer] procedure are i n the results section. BASIC METABOLIC PANEL, Routine 04/11/2022 7:59 CALCIUM TOTAL AM [employer] GENERAL LABORATORY ADD Now 04/11/2022 7:54 Re sults for this ON TEST AM [employer] procedure are i n the results section. POC GLUCOSE SCREEN Routine 04/11/2022 6:43 Result s for this AM F[employer]IGHT CAR CLEANER procedure are i n the results section. FRACTIONATED BILIRUBIN AM 04/11/2022 3:30 Re sults for this AM [employer] procedure are i n the results section. TOTAL PROTEIN AM 04/11/2022 3:30 Results for this AM [employer] procedure are i n the results section. ASPARTATE AM 04/11/2022 3:30 Results for this AMINOTRANSFERASE AM [employer] procedure a re in the results section. ALANINE AMINOTRANSFERASE AM 04/11/2022 3:30 Results for this AM [employer] procedure are i n the results section. ALKALINE PHOSPHATASE AM 04/11/2022 3:30 Resu lts for this AM [employer] procedure are i n the results section. ALBUMIN LEVEL AM 04/11/2022 3:30 Results for this AM [employer] procedure are i n the results section. CALCIUM LEVEL TOTAL AM 04/11/2022 3:30 Resul ts for this AM [employer] procedure are i n the results section. .GLOMERULAR FILTRATION AM 04/11/2022 3:30 Re sults for this RATE AM [employer] procedure are i n the results section. SERUM CREATININE AM 04/11/2022 3:30 Results for this AM [employer] procedure are i n the results section. ELECTROLYTE PANEL AM 04/11/2022 3:30 Results for this AM [employer] procedure are i n the results section. BLOOD UREA NITROGEN AM 04/11/2022 3:30 Resul ts for this AM [employer] procedure are i n the results section. GLUCOSE LEVEL AM 04/11/2022 3:30 Results for this AM [employer] procedure are i n the results section. MAGNESIUM LEVEL AM 04/11/2022 3:30 Results f or this AM [employer] procedure are i n the results section. APTT AM 04/11/2022 3:30 Results for this AM [employer] procedure are i n the results section. POC GLUCOSE SCREEN Routine 04/11/2022 12:45 Resul ts for this AM [employer] procedure are i n the results section. POC GLUCOSE SCREEN Routine 04/10/2022 8:53 Result s for this PM [employer] procedure are i n the results section. POC GLUCOSE SCREEN Routine 04/10/2022 5:46 Result s for this PM [employer] procedure are i n the results section. XR CHEST 1 VW Routine 04/10/2022 5:22 Results for this PM [employer] procedure are i n the results section. FRACTIONATED BILIRUBIN Timed Study 04/10/2022 3:43 Re sults for this PM [employer] procedure are i n the results section. TOTAL PROTEIN Timed Study 04/10/2022 3:43 Results for this PM [employer] procedure are i n the results section. ASPARTATE Timed Study 04/10/2022 3:43 Results for this AMINOTRANSFERASE PM [employer] procedure a re in the results section. ALANINE AMINOTRANSFERASE Timed Study 04/10/2022 3:43 Results for this PM [employer] procedure are i n the results section. ALKALINE PHOSPHATASE Timed Study 04/10/2022 3:43 Resu lts for this PM [employer] procedure are i n the results section. ALBUMIN LEVEL Timed Study 04/10/2022 3:43 Results for this PM [employer] procedure are i n the results section. CALCIUM LEVEL TOTAL Timed Study 04/10/2022 3:43 Resul ts for this PM [employer] procedure are i n the results section. .GLOMERULAR FILTRATION Timed Study 04/10/2022 3:43 Re sults for this RATE PM [employer] procedure are i n the results section. SERUM CREATININE Timed Study 04/10/2022 3:43 Results for this PM [employer] procedure are i n the results section. ELECTROLYTE PANEL Timed Study 04/10/2022 3:43 Results for this PM [employer] procedure are i n the results section. BLOOD UREA NITROGEN Timed Study 04/10/2022 3:43 Resul ts for this PM [employer] procedure are i n the results section. GLUCOSE LEVEL Timed Study 04/10/2022 3:43 Results for this PM [employer] procedure are i n the results section. VITAMIN D 25 HYDROXY Timed Study 04/10/2022 3:43 Resu lts for this LEVEL PM [employer] procedure are i n the results section. MAGNESIUM LEVEL Timed Study 04/10/2022 3:43 Results f or this PM [employer] procedure are i n the results section. PHOSPHORUS LEVEL Timed Study 04/10/2022 3:43 Results for this PM [employer] procedure are i n the results section. COMPREHENSIVE METABOLIC Timed Study 04/10/2022 3:43 PANEL PM [employer] POC GLUCOSE SCREEN Routine 04/10/2022 12:51 Resul ts for this PM [employer] procedure are i n the results section. US LEG VENOUS DOPPLER Routine 04/10/2022 11:44 Re sults for this BILATERAL AM [employer] procedure are i n the results section. GENERAL LABORATORY ADD Now 04/10/2022 9:28 Re sults for this ON TEST AM [employer] procedure are i n the results section. NT PRO BNP AM 04/10/2022 6:55 Results for this AM [employer] procedure are i n the results section. CALCIUM LEVEL TOTAL AM 04/10/2022 6:55 Resul ts for this AM [employer] procedure are i n the results section. .GLOMERULAR FILTRATION AM 04/10/2022 6:55 Re sults for this RATE AM [employer] procedure are i n the results section. SERUM CREATININE AM 04/10/2022 6:55 Results for this AM [employer] procedure are i n the results section. ELECTROLYTE PANEL AM 04/10/2022 6:55 Results for this AM [employer] procedure are i n the results section. BLOOD UREA NITROGEN AM 04/10/2022 6:55 Resul ts for this AM [employer] procedure are i n the results section. GLUCOSE LEVEL AM 04/10/2022 6:55 Results for this AM [employer] procedure are i n the results section. RENIN ACTIVITY, PLASMA Timed Study 04/10/2022 6:55 Re sults for this AM [employer] procedure are i n the results section. ALDOSTERONE Timed Study 04/10/2022 6:55 Results for this AM [employer] procedure are i n the results section. FREE THYROXINE AM 04/10/2022 6:55 Results fo r this AM [employer] procedure are i n the results section. THYROID STIMULATING AM 04/10/2022 6:55 Resul ts for this HORMONE AM [employer] procedure are i n the results section. MAGNESIUM LEVEL AM 04/10/2022 6:55 Results f or this AM [employer] procedure are i n the results section. BASIC METABOLIC PANEL, AM 04/10/2022 6:55 CALCIUM TOTAL AM [employer] APTT AM 04/10/2022 6:55 Results for this AM [employer] procedure are i n the results section. EKG, 12-LEAD (PORTABLE) Routine 04/10/2022 POC GLUCOSE SCREEN Routine 04/09/2022 9:37 Result s for this PM [employer] procedure are i n the results section. FRACTIONATED BILIRUBIN STAT 04/09/2022 7:21 Re sults for this PM [employer] procedure are i n the results section. TOTAL PROTEIN STAT 04/09/2022 7:21 Results for this PM [employer] procedure are i n the results section. ASPARTATE STAT 04/09/2022 7:21 Results for this AMINOTRANSFERASE PM [employer] procedure a re in the results section. ALANINE AMINOTRANSFERASE STAT 04/09/2022 7:21 Results for this PM [employer] procedure are i n the results section. ALKALINE PHOSPHATASE STAT 04/09/2022 7:21 Resu lts for this PM [employer] procedure are i n the results section. ALBUMIN LEVEL STAT 04/09/2022 7:21 Results for this PM [employer] procedure are i n the results section. CALCIUM LEVEL TOTAL STAT 04/09/2022 7:21 Resul ts for this PM [employer] procedure are i n the results section. .GLOMERULAR FILTRATION STAT 04/09/2022 7:21 Re sults for this RATE PM [employer] procedure are i n the results section. SERUM CREATININE STAT 04/09/2022 7:21 Results for this PM [employer] procedure are i n the results section. ELECTROLYTE PANEL STAT 04/09/2022 7:21 Results for this PM [employer] procedure are i n the results section. BLOOD UREA NITROGEN STAT 04/09/2022 7:21 Resul ts for this PM [employer] procedure are i n the results section. GLUCOSE LEVEL STAT 04/09/2022 7:21 Results for this PM [employer] procedure are i n the results section. COMPREHENSIVE METABOLIC STAT 04/09/2022 7:21 PANEL PM [employer] POC GLUCOSE SCREEN Routine 04/09/2022 5:06 Result s for this PM [employer] procedure are i n the results section. POC GLUCOSE SCREEN Routine 04/09/2022 1:10 Result s for this PM [employer] procedure are i n the results section. FRACTIONATED BILIRUBIN STAT 04/09/2022 10:53 R esults for this AM [employer] procedure are i n the results section. TOTAL PROTEIN STAT 04/09/2022 10:53 Results fo r this AM [employer] procedure are i n the results section. ASPARTATE STAT 04/09/2022 10:53 Results for this AMINOTRANSFERASE AM [employer] procedure a re in the results section. ALANINE AMINOTRANSFERASE STAT 04/09/2022 10:53 Results for this AM [employer] procedure are i n the results section. ALKALINE PHOSPHATASE STAT 04/09/2022 10:53 Res ults for this AM [employer] procedure are i n the results section. ALBUMIN LEVEL STAT 04/09/2022 10:53 Results fo r this AM [employer] procedure are i n the results section. CALCIUM LEVEL TOTAL STAT 04/09/2022 10:53 Resu lts for this AM [employer] procedure are i n the results section. .GLOMERULAR FILTRATION STAT 04/09/2022 10:53 R esults for this RATE AM [employer] procedure are i n the results section. SERUM CREATININE STAT 04/09/2022 10:53 Results for this AM [employer] procedure are i n the results section. ELECTROLYTE PANEL STAT 04/09/2022 10:53 Result s for this AM [employer] procedure are i n the results section. BLOOD UREA NITROGEN STAT 04/09/2022 10:53 Resu lts for this AM [employer] procedure are i n the results section. GLUCOSE LEVEL STAT 04/09/2022 10:53 Results fo r this AM [employer] procedure are i n the results section. COMPREHENSIVE METABOLIC STAT 04/09/2022 10:53 PANEL AM [employer] BLOOD UREA NITROGEN Now 04/09/2022 8:08 Resul ts for this AM [employer] procedure are i n the results section. CALCIUM LEVEL TOTAL Now 04/09/2022 8:08 Resul ts for this AM [employer] procedure are i n the results section. .GLOMERULAR FILTRATION Now 04/09/2022 8:08 Re sults for this RATE AM [employer] procedure are i n the results section. SERUM CREATININE Now 04/09/2022 8:08 Results for this AM [employer] procedure are i n the results section. ELECTROLYTE PANEL Now 04/09/2022 8:08 Results for this AM [employer] procedure are i n the results section. GLUCOSE LEVEL Now 04/09/2022 8:08 Results for this AM [employer] procedure are i n the results section. MANUAL DIFFERENTIAL Routine 04/09/2022 8:08 Resul ts for this AM [employer] procedure are i n the results section. Results CBC Routine 04/09/2022 8:08 Results for this AM [employer] procedure are i n the results section. COMPLETE BLOOD COUNT W/ Routine 04/09/2022 8:08 DIFFERENTIAL AM [employer] BASIC METABOLIC PANEL, Now 04/09/2022 8:08 CALCIUM TOTAL AM [employer] POC GLUCOSE SCREEN Routine 04/09/2022 6:00 Result s for this AM [employer] procedure are i n the results section. APTT AM 04/09/2022 2:55 Results for this AM [employer] procedure are i n the results section. EKG, 12-LEAD (PORTABLE) STAT 04/09/2022 POC GLUCOSE SCREEN Routine 04/08/2022 10:28 Resul ts for this PM CDT procedure are i n the results section. POC GLUCOSE SCREEN Routine 04/08/2022 6:16 Result s for this PM CDT procedure are i n the results section. POC GLUCOSE SCREEN Routine 04/08/2022 1:22 Result s for this PM CDT procedure are i n the results section. COMPLETE BLOOD COUNT W/ STAT 04/08/2022 9:53 R esults for this INDICES AM CDT procedure are i n the results section. PHOSPHORUS LEVEL STAT 04/08/2022 6:35 Results for this AM CDT procedure are i n the results section. MAGNESIUM LEVEL STAT 04/08/2022 6:35 Results f or this AM CDT procedure are i n the results section. CALCIUM LEVEL TOTAL STAT 04/08/2022 6:35 Resul ts for this AM CDT procedure are i n the results section. .GLOMERULAR FILTRATION STAT 04/08/2022 6:35 Re sults for this RATE AM CDT procedure are i n the results section. SERUM CREATININE STAT 04/08/2022 6:35 Results for this AM CDT procedure are i n the results section. ELECTROLYTE PANEL STAT 04/08/2022 6:35 Results for this AM CDT procedure are i n the results section. BLOOD UREA NITROGEN STAT 04/08/2022 6:35 Resul ts for this AM CDT procedure are i n the results section. GLUCOSE LEVEL STAT 04/08/2022 6:35 Results for this AM CDT procedure are i n the results section. APTT STAT 04/08/2022 6:35 Results for this AM CDT procedure are i n the results section. POC GLUCOSE SCREEN Routine 04/08/2022 5:56 Result s for this AM CDT procedure are i n the results section. MANUAL DIFFERENTIAL AM 04/08/2022 4:12 Resul ts for this AM CDT procedure are i n the results section. Results CBC AM 04/08/2022 4:12 Results for this AM CDT procedure are i n the results section. COMPLETE BLOOD COUNT W/ AM 04/08/2022 4:12 DIFFERENTIAL AM CDT POC GLUCOSE SCREEN Routine 04/07/2022 11:44 Resul ts for this PM CDT procedure are i n the results section. POC GLUCOSE SCREEN Routine 04/07/2022 6:09 Result s for this PM CDT procedure are i n the results section. POC GLUCOSE SCREEN Routine 04/07/2022 12:17 Resul ts for this PM CDT procedure are i n the results section. POC GLUCOSE SCREEN Routine 04/07/2022 5:53 Result s for this AM CDT procedure are i n the results section. MANUAL DIFFERENTIAL AM 04/07/2022 12:17 Resu lts for this AM CDT procedure are i n the results section. Results CBC AM 04/07/2022 12:17 Results for this AM CDT procedure are i n the results section. CALCIUM LEVEL TOTAL AM 04/07/2022 12:17 Resu lts for this AM CDT procedure are i n the results section. .GLOMERULAR FILTRATION AM 04/07/2022 12:17 R esults for this RATE AM CDT procedure are i n the results section. SERUM CREATININE AM 04/07/2022 12:17 Results for this AM CDT procedure are i n the results section. ELECTROLYTE PANEL AM 04/07/2022 12:17 Result s for this AM CDT procedure are i n the results section. BLOOD UREA NITROGEN AM 04/07/2022 12:17 Resu lts for this AM CDT procedure are i n the results section. GLUCOSE LEVEL AM 04/07/2022 12:17 Results fo r this AM CDT procedure are i n the results section. APTT Routine 04/07/2022 12:17 Results for this AM CDT procedure are i n the results section. PHOSPHORUS LEVEL AM 04/07/2022 12:17 Results for this AM CDT procedure are i n the results section. MAGNESIUM LEVEL AM 04/07/2022 12:17 Results for this AM CDT procedure are i n the results section. COMPLETE BLOOD COUNT W/ AM 04/07/2022 12:17 DIFFERENTIAL AM CDT BASIC METABOLIC PANEL, AM 04/07/2022 12:17 CALCIUM TOTAL AM CDT POC GLUCOSE SCREEN Routine 04/06/2022 11:23 Resul ts for this PM CDT procedure are i n the results section. APTT Timed Study 04/06/2022 6:21 Results for this PM CDT procedure are i n the results section. POC GLUCOSE SCREEN Routine 04/06/2022 5:33 Result s for this PM CDT procedure are i n the results section. POC GLUCOSE SCREEN Routine 04/06/2022 12:20 Resul ts for this PM CDT procedure are i n the results section. APTT Timed Study 04/06/2022 10:36 Results for this AM CDT procedure are i n the results section. POC GLUCOSE SCREEN Routine 04/06/2022 5:27 Result s for this AM CDT procedure are i n the results section. TMP INTERPRETATION STAT 04/06/2022 2:17 Result s for this ANTIBODY SCREEN NEGATIVE AM CDT pro cedure are in the results section. CLOT EXPIRATION DATE STAT 04/06/2022 2:17 Resu lts for this AM CDT procedure are i n the results section. ANTIBODY SCREEN STAT 04/06/2022 2:17 Results f or this AM CDT procedure are i n the results section. MANUAL DIFFERENTIAL AM 04/06/2022 2:17 Resul ts for this AM CDT procedure are i n the results section. Results CBC AM 04/06/2022 2:17 Results for this AM CDT procedure are i n the results section. ABORH STAT 04/06/2022 2:17 Results for this AM CDT procedure are i n the results section. APTT Now 04/06/2022 2:17 Results for this AM CDT procedure are i n the results section. CALCIUM LEVEL TOTAL AM 04/06/2022 2:17 Resul ts for this AM CDT procedure are i n the results section. .GLOMERULAR FILTRATION AM 04/06/2022 2:17 Re sults for this RATE AM CDT procedure are i n the results section. SERUM CREATININE AM 04/06/2022 2:17 Results for this AM CDT procedure are i n the results section. ELECTROLYTE PANEL AM 04/06/2022 2:17 Results for this AM CDT procedure are i n the results section. BLOOD UREA NITROGEN AM 04/06/2022 2:17 Resul ts for this AM CDT procedure are i n the results section. GLUCOSE LEVEL AM 04/06/2022 2:17 Results fo r this AM CDT procedure are i n the results section. PHOSPHORUS LEVEL AM 04/06/2022 2:17 Results for this AM CDT procedure are i n the results section. MAGNESIUM LEVEL AM 04/06/2022 2:17 Results f or this AM CDT procedure are i n the results section. BASIC METABOLIC PANEL, AM 04/06/2022 2:17 CALCIUM TOTAL AM CDT COMPLETE BLOOD COUNT W/ AM 04/06/2022 2:17 DIFFERENTIAL AM CDT TYPE AND SCREEN STAT 04/06/2022 2:17 AM CDT POC GLUCOSE SCREEN Routine 04/05/2022 11:45 Resul ts for this PM CDT procedure are i n the results section. MANUAL DIFFERENTIAL Now 04/05/2022 6:05 Resul ts for this PM CDT procedure are i n the results section. Results CBC STAT 04/05/2022 6:05 Results for this PM CDT procedure are i n the results section. CALCIUM LEVEL TOTAL Now 04/05/2022 6:05 Resul ts for this PM CDT procedure are i n the results section. .GLOMERULAR FILTRATION Now 04/05/2022 6:05 Re sults for this RATE PM CDT procedure are i n the results section. SERUM CREATININE Now 04/05/2022 6:05 Results for this PM CDT procedure are i n the results section. ELECTROLYTE PANEL Now 04/05/2022 6:05 Results for this PM CDT procedure are i n the results section. BLOOD UREA NITROGEN Now 04/05/2022 6:05 Resul ts for this PM CDT procedure are i n the results section. GLUCOSE LEVEL Now 04/05/2022 6:05 Results for this PM CDT procedure are i n the results section. APTT Now 04/05/2022 6:05 Results for this PM CDT procedure are i n the results section. PTH INTACT Now 04/05/2022 6:05 Results for this PM CDT procedure are i n the results section. COMPLETE BLOOD COUNT W/ Now 04/05/2022 6:05 DIFFERENTIAL PM CDT PHOSPHORUS LEVEL Now 04/05/2022 6:05 Results for this PM CDT procedure are i n the results section. MAGNESIUM LEVEL Now 04/05/2022 6:05 Results f or this PM CDT procedure are i n the results section. ALBUMIN LEVEL Now 04/05/2022 6:05 Results for this PM CDT procedure are i n the results section. BASIC METABOLIC PANEL, Now 04/05/2022 6:05 CALCIUM TOTAL PM CDT THYROID STIMULATING Now 04/05/2022 6:05 Resul ts for this HORMONE PM CDT procedure are i n the results section. THYROXINE Now 04/05/2022 6:05 Results for this PM CDT procedure are i n the results section. OR ARTERIAL BLOOD GAS STAT 04/05/2022 1:50 Res ults for this PLUS PM CDT procedure are i n the results section. TRANSFUSE RED BLOOD Routine 04/05/2022 12:41 CELLS PM CDT TRANSFUSE RED BLOOD Routine 04/05/2022 12:04 CELLS PM CDT PREPARE RBC Routine 04/05/2022 11:50 Results for this AM CDT procedure are i n the results section. PREPARE RBC Routine 04/05/2022 11:50 Results for this AM CDT procedure are i n the results section. PATHOLOGY SURGICAL Routine 04/05/2022 11:47 Primary squamous R esults for this INTERPRETATION AM CDT cell carcinoma of procedur e are in larynx the results section. OR ARTERIAL BLOOD GAS STAT 04/05/2022 11:14 Re sults for this PLUS AM CDT procedure are i n the results section. OR ARTERIAL BLOOD GAS STAT 04/05/2022 9:30 Res ults for this PLUS AM CDT procedure are i n the results section. 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 POTASSIUM LEVEL Routine 04/04/2022 12:19 Encounter for other R esults for PM CDT preprocedural this procedure examination are in the results section. COVID-19 (SARS-COV-2) Routine 04/04/2022 11:55 Suspected COVID -19 Results for PCR-ASYMPTOMATIC MC AM CDT this pro cedure are in the results section. TMP CROSSMATCH Routine 03/28/2022 2:11 Results fo r INTERPRETATION PM CDT this procedur e are in the results section. TMP INTERPRETATION Routine 03/28/2022 2:11 Result s for EXCEPTION PREOP PM CDT this procedu re EXPIRATION are in the results section. TMP INTERPRETATION Routine 03/28/2022 2:11 Result s for ANTIBODY SCREEN PM CDT this procedu re NEGATIVE are in the results section. CLOT EXPIRATION DATE Routine 03/28/2022 2:11 Resu lts for PM CDT this procedure are in the results section. ANTIBODY SCREEN Routine 03/28/2022 2:11 Pre op labs Results f or PM CDT this procedure are in the results section. ABORH Routine 03/28/2022 2:11 Pre op labs Results for PM CDT this procedure are in the results section. MANUAL DIFFERENTIAL Routine 03/28/2022 2:11 Pre op labs Resul ts for PM CDT this procedure are in the results section. Results CBC Routine 03/28/2022 2:11 Pre op labs Results for PM CDT this procedure are in the results section. .GLOMERULAR FILTRATION Routine 03/28/2022 2:11 Pre op labs Re sults for RATE PM CDT this procedure are in the results section. SERUM CREATININE Routine 03/28/2022 2:11 Pre op labs Results for PM CDT this procedure are in the results section. MAGNESIUM LEVEL Routine 03/28/2022 2:11 Pre op labs Results f or PM CDT this procedure are in the results section. FREE THYROXINE Routine 03/28/2022 2:11 Pre op labs Results fo r PM CDT this procedure are in the results section. THYROID STIMULATING Routine 03/28/2022 2:11 Pre op labs Resul ts for HORMONE PM CDT this procedure are in the results section. HEMOGLOBIN A1C Routine 03/28/2022 2:11 Pre op labs Results fo r PM CDT this procedure are in the results section. TYPE AND SCREEN Routine 03/28/2022 2:11 Pre op labs PM CDT GLUCOSE, RANDOM Routine 03/28/2022 2:11 Pre op labs Results f or PM CDT this procedure are in the results section. ELECTROLYTE PANEL Routine 03/28/2022 2:11 Pre op labs Results for PM CDT this procedure are in the results section. SERUM CREATININE Routine 03/28/2022 2:11 Pre op labs PM CDT COMPLETE BLOOD COUNT W/ Routine 03/28/2022 2:11 Pre op labs DIFFERENTIAL PM CDT BLOOD UREA NITROGEN Routine 03/28/2022 2:11 Pre op labs Resul ts for PM CDT this procedure are in the results section. POC GLYCOHEMOGLOBIN A1C Routine 03/28/2022 11:07 Results for AM CDT this procedure are in the results section. CT SOFT TISSUE NECK W Routine 03/28/2022 7:31 Primary squamous Results for CONTRAST AM CDT cell carcinoma of this proce dure larynx are in the results section. POC CREATININE Routine 03/28/2022 7:20 Results fo r AM CDT this procedure are in the results section. XR CHEST 2 VW Routine 02/24/2022 11:26 Cellulitis of n jasmeet Results for AM CDT Cough at rest this procedure <Cough; Acute> are in the results section. LOWER RESPIRATORY Routine 02/23/2022 12:28 Cellulitis of neck Results for CULTURE W/ GRAM STAIN PM CDT Cough at rest this procedure <Cough; Acute> are in the results section. CT SOFT TISSUE NECK W Routine 02/01/2022 11:50 Cellulitis of n jasmeet Results for CONTRAST AM CDT this procedure are in the results section. 6 MINUTE WALK TEST Routine 01/20/2022 7:55 Chronic obstructive AM CDT pulmonary disease, not otherwise specified FRACTIONATED BILIRUBIN Routine 01/12/2022 10:00 Cellulitis of [...] section. GLUCOSE LEVEL AM 11/10/2021 3:47 Results fo r AM CDT this procedure [...] FOR Routine 10/20/2021 1:00 Re sults for [employer] TECHNICIAN PM CDT this procedure are in the [...] results section. MANUAL DIFFERENTIAL STAT 10/19/2021 1:04 Resul ts for AM CDT [...] FOR Routine 10/15/2021 2:55 Re sults for [employer]ARC[employer] RESEARCH TECHNICIAN AM CDT this procedure are in the [...] PRBC PRODUCT READY FOR Routine 08/25/2021 4:47 Re sults for [employer] TECHNICIAN PM CDT this procedure are in the [...] Routine 07/12/2021 5:42 Result s for PM [employer] this procedure are in the results section. CALCIUM LEVEL TOTAL Routine 07/12/2021 3:09 Resul ts for PM [employer] this procedure are in the results section. .GLOMERULAR FILTRATION Routine 07/12/2021 3:09 Re sults for RATE [employer] this procedure are in the results section. SERUM CREATININE Routine 07/12/2021 3:09 Results for PM [employer] this procedure are in the results section. ELECTROLYTE PANEL Routine 07/12/2021 3:09 Results for PM [employer] this procedure are in the results section. BLOOD UREA NITROGEN Routine 07/12/2021 3:09 Resul ts for PM [employer] this procedure are in the results section. GLUCOSE LEVEL Routine 07/12/2021 3:09 Results for PM [employer] this procedure are in the results section. PHOSPHORUS LEVEL Routine 07/12/2021 3:09 Results for PM [employer] this procedure are in the results section. MAGNESIUM LEVEL Routine 07/12/2021 3:09 Results f or PM [employer] this procedure are in the results section. BASIC METABOLIC PANEL, Routine 07/12/2021 3:09 CALCIUM TOTAL PM [employer] POC GLUCOSE SCREEN Routine 07/12/2021 1:45 Result s for PM [employer] this procedure are in the results section. POC GLUCOSE SCREEN Routine 07/12/2021 9:40 Result s for AM [employer] this procedure are in the results section. MANUAL DIFFERENTIAL AM 07/12/2021 1:56 Resul ts for AM [employer] this procedure are in the results section. Results CBC AM 07/12/2021 1:56 Results for AM [employer] this procedure are in the results section. CALCIUM LEVEL TOTAL Routine 07/12/2021 1:56 Resul ts for AM [employer] this procedure are in the results section. .GLOMERULAR FILTRATION Routine 07/12/2021 1:56 Re sults for RATE [employer] this procedure are in the results section. SERUM CREATININE Routine 07/12/2021 1:56 Results for AM [employer] this procedure are in the results section. ELECTROLYTE PANEL Routine 07/12/2021 1:56 Results for AM [employer] this procedure are in the results section. BLOOD UREA NITROGEN Routine 07/12/2021 1:56 Resul ts for AM [employer] this procedure are in the results section. GLUCOSE LEVEL Routine 07/12/2021 1:56 Results for AM [employer] this procedure are in the results section. PHOSPHORUS LEVEL Routine 07/12/2021 1:56 Results for AM [employer] this procedure are in the results section. MAGNESIUM LEVEL Routine 07/12/2021 1:56 Results f or AM [employer] this procedure are in the results section. BASIC METABOLIC PANEL, Routine 07/12/2021 1:56 CALCIUM TOTAL AM [employer] COMPLETE BLOOD COUNT W/ AM 07/12/2021 1:56 DIFFERENTIAL AM [employer] POC GLUCOSE SCREEN Routine 07/11/2021 10:09 Resul ts for PM [employer] this procedure are in the results section. POC GLUCOSE SCREEN Routine 07/11/2021 8:52 Result s for PM [employer] this procedure are in the results section. POC GLUCOSE SCREEN Routine 07/11/2021 4:27 Result s for PM [employer] this procedure are in the results section. ECHOCARDIOGRAM 2D Routine 07/11/2021 4:16 Results for COMPLETE PM [employer] this procedure are in the results section. CALCIUM LEVEL TOTAL Routine 07/11/2021 2:33 Resul ts for PM [employer] this procedure are in the results section. .GLOMERULAR FILTRATION Routine 07/11/2021 2:33 Re sults for RATE PM [employer] this procedure are in the results section. SERUM CREATININE Routine 07/11/2021 2:33 Results for PM [employer] this procedure are in the results section. ELECTROLYTE PANEL Routine 07/11/2021 2:33 Results for PM [employer] this procedure are in the results section. BLOOD UREA NITROGEN Routine 07/11/2021 2:33 Resul ts for PM [employer] this procedure are in the results section. GLUCOSE LEVEL Routine 07/11/2021 2:33 Results for PM [employer] this procedure are in the results section. PHOSPHORUS LEVEL Routine 07/11/2021 2:33 Results for PM [employer] this procedure are in the results section. MAGNESIUM LEVEL Routine 07/11/2021 2:33 Results f or [employer] this procedure are in the results section. BASIC METABOLIC PANEL, Routine 07/11/2021 2:33 CALCIUM TOTAL PM [employer] POC GLUCOSE SCREEN Routine 07/11/2021 12:33 Resul ts for PM [employer] this procedure are in the results section. POC GLUCOSE SCREEN Routine 07/11/2021 8:52 Result s for AM [employer] this procedure are in the results section. CALCIUM LEVEL TOTAL Routine 07/11/2021 2:00 Resul ts for AM [employer] this procedure are in the results section. .GLOMERULAR FILTRATION Routine 07/11/2021 2:00 Re sults for RATE AM [employer] this procedure are in the results section. SERUM CREATININE Routine 07/11/2021 2:00 Results for AM [employer] this procedure are in the results section. ELECTROLYTE PANEL Routine 07/11/2021 2:00 Results for AM [employer] this procedure are in the results section. BLOOD UREA NITROGEN Routine 07/11/2021 2:00 Resul ts for AM [employer] this procedure are in the results section. GLUCOSE LEVEL Routine 07/11/2021 2:00 Results for AM [employer] this procedure are in the results section. PHOSPHORUS LEVEL Routine 07/11/2021 2:00 Results for AM [employer] this procedure are in the results section. MAGNESIUM LEVEL Routine 07/11/2021 2:00 Results f or AM [employer] this procedure are in the results section. BASIC METABOLIC PANEL, Routine 07/11/2021 2:00 CALCIUM TOTAL AM [employer] MANUAL DIFFERENTIAL AM 07/11/2021 1:46 Resul ts for AM [employer] this procedure are in the results section. Results CBC AM 07/11/2021 1:46 Results for AM [employer] this procedure are in the results section. COMPLETE BLOOD COUNT W/ AM 07/11/2021 1:46 DIFFERENTIAL AM [employer] EKG, 12-LEAD (PORTABLE) Routine 07/11/2021 EKG, 12-LEAD (PORTABLE) STAT 07/11/2021 POC GLUCOSE SCREEN Routine 07/10/2021 9:45 Result s for PM [employer] this procedure are in the results section. POC GLUCOSE SCREEN Routine 07/10/2021 7:36 Result s for PM [employer] this procedure are in the results section. POC GLUCOSE SCREEN Routine 07/10/2021 4:26 Result s for PM [employer] this procedure are in the results section. CALCIUM LEVEL TOTAL Routine 07/10/2021 3:02 Resul ts for PM [employer] this procedure are in the results section. .GLOMERULAR FILTRATION Routine 07/10/2021 3:02 Re sults for RATE PM [employer] this procedure are in the results section. SERUM CREATININE Routine 07/10/2021 3:02 Results for PM [employer] this procedure are in the results section. ELECTROLYTE PANEL Routine 07/10/2021 3:02 Results for PM [employer] this procedure are in the results section. BLOOD UREA NITROGEN Routine 07/10/2021 3:02 Resul ts for PM [employer] this procedure are in the results section. GLUCOSE LEVEL Routine 07/10/2021 3:02 Results for PM [employer] this procedure are in the results section. PHOSPHORUS LEVEL Routine 07/10/2021 3:02 Results for PM [employer] this procedure are in the results section. MAGNESIUM LEVEL Routine 07/10/2021 3:02 Results f or PM [employer] this procedure are in the results section. BASIC METABOLIC PANEL, Routine 07/10/2021 3:02 CALCIUM TOTAL PM [employer] POC GLUCOSE SCREEN Routine 07/10/2021 11:40 Resul ts for AM [employer] this procedure are in the results section. MANUAL DIFFERENTIAL AM 07/10/2021 6:09 Resul ts for AM [employer] this procedure are in the results section. Results CBC AM 07/10/2021 6:09 Results for AM [employer] this procedure are in the results section. CALCIUM LEVEL TOTAL Routine 07/10/2021 6:09 Resul ts for AM [employer] this procedure are in the results section. .GLOMERULAR FILTRATION Routine 07/10/2021 6:09 Re sults for RATE AM [employer] this procedure are in the results section. SERUM CREATININE Routine 07/10/2021 6:09 Results for AM [employer] this procedure are in the results section. ELECTROLYTE PANEL Routine 07/10/2021 6:09 Results for AM [employer] this procedure are in the results section. BLOOD UREA NITROGEN Routine 07/10/2021 6:09 Resul ts for AM [employer] this procedure are in the results section. GLUCOSE LEVEL Routine 07/10/2021 6:09 Results for AM [employer] this procedure are in the results section. TROPONIN T AM 07/10/2021 6:09 Results for AM [employer] this procedure are in the results section. PHOSPHORUS LEVEL Routine 07/10/2021 6:09 Results for AM [employer] this procedure are in the results section. MAGNESIUM LEVEL Routine 07/10/2021 6:09 Results f or AM [employer] this procedure are in the results section. BASIC METABOLIC PANEL, Routine 07/10/2021 6:09 CALCIUM TOTAL AM [employer] COMPLETE BLOOD COUNT W/ AM 07/10/2021 6:09 DIFFERENTIAL AM [employer] POC GLUCOSE SCREEN Routine 07/09/2021 11:11 Resul ts for PM [employer] this procedure are in the results section. BLOOD UREA NITROGEN STAT 07/09/2021 10:35 Resu lts for PM [employer] this procedure are in the results section. CALCIUM IONIZED, VENOUS STAT 07/09/2021 10:35 Results for PM [employer] this procedure are in the results section. .GLOMERULAR FILTRATION STAT 07/09/2021 10:35 R esults for RATE PM [employer] this procedure are in the results section. SERUM CREATININE STAT 07/09/2021 10:35 Results for PM [employer] this procedure are in the results section. ELECTROLYTE PANEL STAT 07/09/2021 10:35 Result s for PM [employer] this procedure are in the results section. GLUCOSE LEVEL STAT 07/09/2021 10:35 Results fo r PM [employer] this procedure are in the results section. TROPONIN T STAT 07/09/2021 10:35 Results for PM [employer] this procedure are in the results section. PHOSPHORUS LEVEL STAT 07/09/2021 10:35 Results for PM [employer] this procedure are in the results section. MAGNESIUM LEVEL STAT 07/09/2021 10:35 Results for PM [employer] this procedure are in the results section. BASIC METABOLIC PANEL, STAT 07/09/2021 10:35 CALCIUM IONIZED PM [employer] LOWER RESPIRATORY Now 07/09/2021 5:33 Results for CULTURE W/ GRAM STAIN PM [employer] this p rocedure are in the results section. POC GLUCOSE SCREEN Routine 07/09/2021 4:30 Result s for PM [employer] this procedure are in the results section. VASCULAR ACCESS Routine 07/09/2021 3:00 Results f or ULTRASOUND PM [employer] this procedure are in the results section. CALCIUM LEVEL TOTAL Routine 07/09/2021 1:45 Resul ts for PM [employer] this procedure are in the results section. .GLOMERULAR FILTRATION Routine 07/09/2021 1:45 Re sults for RATE PM [employer] this procedure are in the results section. SERUM CREATININE Routine 07/09/2021 1:45 Results for PM [employer] this procedure are in the results section. ELECTROLYTE PANEL Routine 07/09/2021 1:45 Results for PM [employer] this procedure are in the results section. BLOOD UREA NITROGEN Routine 07/09/2021 1:45 Resul ts for PM [employer] this procedure are in the results section. GLUCOSE LEVEL Routine 07/09/2021 1:45 Results for PM [employer] this procedure are in the results section. PHOSPHORUS LEVEL Routine 07/09/2021 1:45 Results for PM [employer] this procedure are in the results section. MAGNESIUM LEVEL Routine 07/09/2021 1:45 Results f or [employer] this procedure are in the results section. BASIC METABOLIC PANEL, Routine 07/09/2021 1:45 CALCIUM TOTAL PM [employer] OSCILLATORY PEP Routine 07/09/2021 1:21 PM [employer] OSCILLATORY PEP Routine 07/09/2021 1:21 PM [employer] OSCILLATORY PEP Routine 07/09/2021 1:21 PM [employer] POC GLUCOSE SCREEN Routine 07/09/2021 12:42 Resul ts for PM [employer] this procedure are in the results section. POC GLUCOSE SCREEN Routine 07/09/2021 8:56 Result s for AM [employer] this procedure are in the results section. MANUAL DIFFERENTIAL AM 07/09/2021 6:28 Resul ts for AM [employer] this procedure are in the results section. Results CBC AM 07/09/2021 6:28 Results for AM [employer] this procedure are in the results section. CALCIUM LEVEL TOTAL AM 07/09/2021 6:28 Resul ts for AM [employer] this procedure are in the results section. .GLOMERULAR FILTRATION AM 07/09/2021 6:28 Re sults for RATE [employer] this procedure are in the results section. SERUM CREATININE AM 07/09/2021 6:28 Results for AM [employer] this procedure are in the results section. ELECTROLYTE PANEL AM 07/09/2021 6:28 Results for AM [employer] this procedure are in the results section. BLOOD UREA NITROGEN AM 07/09/2021 6:28 Resul ts for AM [employer] this procedure are in the results section. GLUCOSE LEVEL AM 07/09/2021 6:28 Results for AM [employer] this procedure are in the results section. PHOSPHORUS LEVEL AM 07/09/2021 6:28 Results for AM [employer] this procedure are in the results section. MAGNESIUM LEVEL AM 07/09/2021 6:28 Results f or AM [employer] this procedure are in the results section. COMPLETE BLOOD COUNT W/ AM 07/09/2021 6:28 DIFFERENTIAL [employer] BASIC METABOLIC PANEL, AM 07/09/2021 6:28 CALCIUM TOTAL AM [employer] TROPONIN T Routine 07/09/2021 6:28 Results for AM [employer] this procedure are in the results section. POC GLUCOSE SCREEN Routine 07/08/2021 10:08 Resul ts for PM [employer] this procedure are in the results section. POC GLUCOSE SCREEN Routine 07/08/2021 5:49 Result s for PM [employer] this procedure are in the results section. STREPTOCOCCAL URINE Routine 07/08/2021 5:17 Resul ts for ANTIGEN PATH REVIEW [employer] this pro cedure are in the results section. LEGIONELLA URINE Routine 07/08/2021 5:17 Results for ANTIGEN PATH REVIEW [employer] this pro cedure are in the results section. LEGIONELLA URINE Now 07/08/2021 5:17 Results for ANTIGEN [employer] this procedure are in the results section. STREPTOCOCCUS Now 07/08/2021 5:17 Results for PNEUMONIAE URINE [employer] this proced ure ANTIGEN are in the results section. GENERAL LABORATORY ADD Now 07/08/2021 3:35 Re sults for ON TEST [employer] this procedure are in the results section. MRSA SCREENING CULTURE Now 07/08/2021 3:23 Re sults for PM [employer] this procedure are in the results section. CT CHEST PULMONARY Routine 07/08/2021 1:38 Result s for EMBOLISM W CONTRAST [employer] this pro cedure are in the results section. XR ABDOMEN AP Routine 07/08/2021 1:31 Results for PM [employer] this procedure are in the results section. POC CRITICAL Routine 07/08/2021 12:14 Results for PM [employer] this procedure are in the results section. POC CHEM 8 Routine 07/08/2021 12:14 Results for PM [employer] this procedure are in the results section. PROCALCITONIN Now 07/08/2021 12:13 Results fo r [employer] this procedure are in the results section. FRACTIONATED BILIRUBIN Now 07/08/2021 12:13 R esults for PM [employer] this procedure are in the results section. TOTAL PROTEIN Now 07/08/2021 12:13 Results fo r [employer] this procedure are in the results section. ASPARTATE Now 07/08/2021 12:13 Results for AMINOTRANSFERASE PM [employer] this proced ure are in the results section. ALANINE Now 07/08/2021 12:13 Results for AMINOTRANSFERASE PM [employer] this proced ure are in the results section. ALKALINE PHOSPHATASE Now 07/08/2021 12:13 Res ults for PM [employer] this procedure are in the results section. ALBUMIN LEVEL Now 07/08/2021 12:13 Results fo r [employer] this procedure are in the results section. CALCIUM LEVEL TOTAL Now 07/08/2021 12:13 Resu lts for PM [employer] this procedure are in the results section. .GLOMERULAR FILTRATION Now 07/08/2021 12:13 R esults for RATE [employer] this procedure are in the results section. SERUM CREATININE Now 07/08/2021 12:13 Results for PM [employer] this procedure are in the results section. ELECTROLYTE PANEL Now 07/08/2021 12:13 Result s for PM [employer] this procedure are in the results section. BLOOD UREA NITROGEN Now 07/08/2021 12:13 Resu lts for PM [employer] this procedure are in the results section. GLUCOSE LEVEL Now 07/08/2021 12:13 Results fo r [employer] this procedure are in the results section. MANUAL DIFFERENTIAL STAT 07/08/2021 12:13 Resu lts for PM [employer] this procedure are in the results section. Results CBC STAT 07/08/2021 12:13 Results for PM [employer] this procedure are in the results section. CARDIAC PANEL Timed Study 07/08/2021 12:13 Results fo r [employer] this procedure are in the results section. D DIMER Now 07/08/2021 12:13 Results for PM [employer] this procedure are in the results section. APTT Now 07/08/2021 12:13 Results for PM [employer] this procedure are in the results section. PROTHROMBIN TIME Now 07/08/2021 12:13 Results for PM [employer] this procedure are in the results section. PHOSPHORUS LEVEL Now 07/08/2021 12:13 Results for PM [employer] this procedure are in the results section. MAGNESIUM LEVEL Now 07/08/2021 12:13 Results for PM [employer] this procedure are in the results section. COMPREHENSIVE METABOLIC Now 07/08/2021 12:13 PANEL [employer] COMPLETE BLOOD COUNT W/ Now 07/08/2021 12:13 DIFFERENTIAL [employer] XR CHEST 1 VW Routine 07/08/2021 11:38 Results fo r [employer] this procedure are in the results section. COVID-19 (SARS-COV-2) Now 07/08/2021 11:23 Re sults for ASYMPTOMATIC-LT [employer] this procedu re are in the results section. CT HEAD WO CONTRAST Routine 07/08/2021 11:05 Resu lts for AM [employer] this procedure are in the results section. POC GLUCOSE SCREEN Routine 07/08/2021 10:47 Resul ts for AM [employer] this procedure are in the results section. 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 TOTAL PROTEIN Routine 07/04/2021 11:10 Primary squamous Result s for AM [employer] cell carcinoma of this proce dure larynx are in the results section. ASPARTATE Routine 07/04/2021 11:10 Primary squamous Results for AMINOTRANSFERASE [employer] cell carcinoma of this p rocedure larynx are in the results section. 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 ALBUMIN LEVEL Routine 07/04/2021 11:10 Primary squamous Result s for AM [employer] cell carcinoma of this proce dure larynx are in the results section. 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 .GLOMERULAR FILTRATION Routine 07/04/2021 11:10 Primary squamo us Results for RATE [employer] cell carcinoma of this proce dure larynx are in the results section. SERUM CREATININE Routine 07/04/2021 11:10 Primary squamous Res ults for AM [employer] cell carcinoma of this proce dure larynx are in the results section. ELECTROLYTE PANEL Routine 07/04/2021 11:10 Primary squamous Re sults for AM [employer] cell carcinoma of this proce dure larynx are in the results section. 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 GLUCOSE LEVEL Routine 07/04/2021 11:10 Primary squamous Result s for AM [employer] cell carcinoma of this proce dure larynx are in the results section. PHOSPHORUS LEVEL Routine 07/04/2021 11:10 Primary squamous Res ults for AM [employer] cell carcinoma of this proce dure larynx are in the results section. MAGNESIUM LEVEL Routine 07/04/2021 11:10 Primary squamous Resu lts for AM [employer] cell carcinoma of this proce dure larynx are in the results section. COMPLETE BLOOD COUNT W/ Routine 07/04/2021 11:10 Primary squam ous DIFFERENTIAL [employer] cell carcinoma of larynx COMPREHENSIVE METABOLIC Routine 07/04/2021 11:10 Primary squam ous PANEL [employer] cell carcinoma of larynx MANUAL DIFFERENTIAL Routine 06/27/2021 8:00 Primary squamous R esults for AM [employer] cell carcinoma of this proce dure larynx are in the results section. 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 FRACTIONATED BILIRUBIN Routine 06/27/2021 8:00 Primary squamou s Results for AM [employer] cell carcinoma of this proce dure larynx are in the results section. 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 ASPARTATE Routine 06/27/2021 8:00 Primary squamous Results for AMINOTRANSFERASE [employer] cell carcinoma of this p rocedure larynx are in the results section. ALANINE Routine 06/27/2021 8:00 Primary squamous Results for AMINOTRANSFERASE AM [employer] cell carcinoma of this p rocedure larynx are in the results section. 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 CALCIUM LEVEL TOTAL Routine 06/27/2021 8:00 Primary squamous R esults for AM [employer] cell carcinoma of this proce dure larynx are in the results section. .GLOMERULAR FILTRATION Routine 06/27/2021 8:00 Primary squamou s Results for RATE [employer] cell carcinoma of this proce dure larynx are in the results section. SERUM CREATININE Routine 06/27/2021 8:00 Primary squamous Resu lts for AM [employer] cell carcinoma of this proce dure larynx are in the results section. ELECTROLYTE PANEL Routine 06/27/2021 8:00 Primary squamous Res ults for AM [employer] cell carcinoma of this proce dure larynx are in the results section. BLOOD UREA NITROGEN Routine 06/27/2021 8:00 Primary squamous R esults for AM [employer] cell carcinoma of this proce dure larynx are in the results section. GLUCOSE LEVEL Routine 06/27/2021 8:00 Primary squamous Results for AM [employer] cell carcinoma of this proce dure larynx are in the results section. PHOSPHORUS LEVEL Routine 06/27/2021 8:00 Primary squamous Resu lts for AM [employer] cell carcinoma of this proce dure larynx are in the results section. MAGNESIUM LEVEL Routine 06/27/2021 8:00 Primary squamous Resul ts for AM [employer] cell carcinoma of this proce dure larynx are in the results section. COMPLETE BLOOD COUNT W/ Routine 06/27/2021 8:00 Primary squamo us DIFFERENTIAL [employer] cell carcinoma of larynx COMPREHENSIVE METABOLIC Routine 06/27/2021 8:00 Primary [facility] PANEL [employer] cell carcinoma of larynx TROPONIN T STAT 06/22/2021 3:45 Results for PM [employer] this procedure are in the results section. FRACTIONATED BILIRUBIN Now 06/22/2021 11:54 R esults for [employer] this procedure are in the results section. TOTAL PROTEIN Now 06/22/2021 11:54 Results fo r [employer] this procedure are in the results section. ASPARTATE Now 06/22/2021 11:54 Results for AMINOTRANSFERASE [employer] this proced ure are in the results section. ALANINE Now 06/22/2021 11:54 Results for AMINOTRANSFERASE [employer] this proced ure are in the results section. ALKALINE PHOSPHATASE Now 06/22/2021 11:54 Res ults for [employer] this procedure are in the results section. ALBUMIN LEVEL Now 06/22/2021 11:54 Results fo r [employer] this procedure are in the results section. CALCIUM LEVEL TOTAL Now 06/22/2021 11:54 Resu lts for [employer] this procedure are in the results section. .GLOMERULAR FILTRATION Now 06/22/2021 11:54 R esults for RATE [employer] this procedure are in the results section. SERUM CREATININE Now 06/22/2021 11:54 Results for [employer] this procedure are in the results section. ELECTROLYTE PANEL Now 06/22/2021 11:54 Result s for [employer] this procedure are in the results section. BLOOD UREA NITROGEN Now 06/22/2021 11:54 Resu lts for [employer] this procedure are in the results section. GLUCOSE LEVEL Now 06/22/2021 11:54 Results fo r [employer] this procedure are in the results section. MANUAL DIFFERENTIAL STAT 06/22/2021 11:54 Resu lts for [employer] this procedure are in the results section. Results CBC STAT 06/22/2021 11:54 Results for [employer] this procedure are in the results section. CKMB Now 06/22/2021 11:54 Results for [employer] this procedure are in the results section. CREATINE KINASE Now 06/22/2021 11:54 Results for [employer] this procedure are in the results section. NT PRO BNP Now 06/22/2021 11:54 Results for [employer] this procedure are in the results section. PHOSPHORUS LEVEL Now 06/22/2021 11:54 Results for [employer] this procedure are in the results section. MAGNESIUM LEVEL Now 06/22/2021 11:54 Results for [employer] this procedure are in the results section. COMPREHENSIVE METABOLIC Now 06/22/2021 11:54 PANEL [employer] COMPLETE BLOOD COUNT W/ Now 06/22/2021 11:54 DIFFERENTIAL [employer] COVID-19 (SARS-COV-2) Now 06/22/2021 11:54 Re sults for ASYMPTOMATIC-LT [employer] this procedu re are in the results section. EKG, 12-LEAD (PORTABLE) Routine 06/22/2021 EKG, 12-LEAD (PORTABLE) STAT 06/22/2021 CT HEAD/NECK SIMULATION Routine 06/21/2021 9:00 Primary [facility] Results for WO CONTRAST (RO) [employer] cell carcinoma of this p rocedure larynx are in the results section. MANUAL DIFFERENTIAL Routine 06/20/2021 8:07 Primary squamous R esults for [employer] cell carcinoma of this proce dure larynx are in the results section. Results CBC Routine 06/20/2021 8:07 Primary squamous Results for [employer] cell carcinoma of this proce dure larynx are in the results section. FRACTIONATED BILIRUBIN Routine 06/20/2021 8:07 Primary [facility] Results for [employer] cell carcinoma of this proce dure larynx are in the results section. TOTAL PROTEIN Routine 06/20/2021 8:07 Primary squamous Results for [employer] cell carcinoma of this proce dure larynx are in the results section. ASPARTATE Routine 06/20/2021 8:07 Primary squamous Results for AMINOTRANSFERASE [employer] cell carcinoma of this p rocedure larynx are in the results section. ALANINE Routine 06/20/2021 8:07 Primary squamous Results for AMINOTRANSFERASE [employer] cell carcinoma of this p rocedure larynx are in the results section. ALKALINE PHOSPHATASE Routine 06/20/2021 8:07 Primary squamous Results for [employer] cell carcinoma of this proce dure larynx are in the results section. 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 CALCIUM LEVEL TOTAL Routine 06/20/2021 8:07 Primary squamous R esults for [employer] cell carcinoma of this proce dure larynx are in the results section. .GLOMERULAR FILTRATION Routine 06/20/2021 8:07 Primary [facility] Results for RATE [employer] cell carcinoma of this proce dure larynx are in the results section. SERUM CREATININE Routine 06/20/2021 8:07 Primary squamous Resu lts for [employer] cell carcinoma of this proce dure larynx are in the results section. ELECTROLYTE PANEL Routine 06/20/2021 8:07 Primary squamous Res ults for [employer] cell carcinoma of this proce dure larynx are in the results section. BLOOD UREA NITROGEN Routine 06/20/2021 8:07 Primary squamous R esults for [employer] cell carcinoma of this proce dure larynx are in the results section. GLUCOSE LEVEL Routine 06/20/2021 8:07 Primary squamous Results for [employer] cell carcinoma of this proce dure larynx are in the results section. PHOSPHORUS LEVEL Routine 06/20/2021 8:07 Primary squamous Resu lts for [employer] cell carcinoma of this proce dure larynx are in the results section. MAGNESIUM LEVEL Routine 06/20/2021 8:07 Primary squamous Resul ts for [employer] cell carcinoma of this proce dure larynx are in the results section. COMPLETE BLOOD COUNT W/ Routine 06/20/2021 8:07 Primary [facility] DIFFERENTIAL [employer] cell carcinoma of larynx COMPREHENSIVE METABOLIC Routine 06/20/2021 8:07 Primary [facility] PANEL [employer] cell carcinoma of larynx MANUAL DIFFERENTIAL Routine 06/13/2021 7:00 Primary squamous R esults for [employer] cell carcinoma of this proce dure larynx are in the results section. Results CBC Routine 06/13/2021 7:00 Primary squamous Results for [employer] cell carcinoma of this proce dure larynx are in the results section. FRACTIONATED BILIRUBIN Routine 06/13/2021 7:00 Primary [facility] Results for [employer] cell carcinoma of this proce dure larynx are in the results section. TOTAL PROTEIN Routine 06/13/2021 7:00 Primary squamous Results for [employer] cell carcinoma of this proce dure larynx are in the results section. ASPARTATE Routine 06/13/2021 7:00 Primary squamous Results for AMINOTRANSFERASE [employer] cell carcinoma of this p rocedure larynx are in the results section. ALANINE Routine 06/13/2021 7:00 Primary squamous Results for AMINOTRANSFERASE [employer] cell carcinoma of this p rocedure larynx are in the results section. ALKALINE PHOSPHATASE Routine 06/13/2021 7:00 Primary squamous Results for [employer] cell carcinoma of this proce dure larynx are in the results section. ALBUMIN LEVEL Routine 06/13/2021 7:00 Primary squamous Results for [employer] cell carcinoma of this proce dure larynx are in the results section. CALCIUM LEVEL TOTAL Routine 06/13/2021 7:00 Primary squamous R esults for [employer] cell carcinoma of this proce dure larynx are in the results section. .GLOMERULAR FILTRATION Routine 06/13/2021 7:00 Primary [facility] Results for RATE [employer] cell carcinoma of this proce dure larynx are in the results section. SERUM CREATININE Routine 06/13/2021 7:00 Primary squamous Resu lts for [employer] cell carcinoma of this proce dure larynx are in the results section. ELECTROLYTE PANEL Routine 06/13/2021 7:00 Primary squamous Res ults for [employer] cell carcinoma of this proce dure larynx are in the results section. BLOOD UREA NITROGEN Routine 06/13/2021 7:00 Primary squamous R esults for [employer] cell carcinoma of this proce dure larynx are in the results section. GLUCOSE LEVEL Routine 06/13/2021 7:00 Primary squamous Results for [employer] cell carcinoma of this proce dure larynx are in the results section. PHOSPHORUS LEVEL Routine 06/13/2021 7:00 Primary squamous Resu lts for [employer] cell carcinoma of this proce dure larynx are in the results section. MAGNESIUM LEVEL Routine 06/13/2021 7:00 Primary squamous Resul ts for [employer] cell carcinoma of this proce dure larynx are in the results section. COMPLETE BLOOD COUNT W/ Routine 06/13/2021 7:00 Primary [facility] DIFFERENTIAL [employer] cell carcinoma of larynx COMPREHENSIVE METABOLIC Routine 06/13/2021 7:00 Primary [facility] PANEL [employer] cell carcinoma of larynx MANUAL DIFFERENTIAL Routine 06/06/2021 6:58 Primary squamous R esults for [employer] cell carcinoma of this proce dure larynx are in the results section. Results CBC Routine 06/06/2021 6:58 Primary squamous Results for [employer] cell carcinoma of this proce dure larynx are in the results section. FRACTIONATED BILIRUBIN Routine 06/06/2021 6:58 Primary [facility] Results for [employer] cell carcinoma of this proce dure larynx are in the results section. TOTAL PROTEIN Routine 06/06/2021 6:58 Primary squamous Results for [employer] cell carcinoma of this proce dure larynx are in the results section. ASPARTATE Routine 06/06/2021 6:58 Primary squamous Results for AMINOTRANSFERASE [employer] cell carcinoma of this p rocedure larynx are in the results section. ALANINE Routine 06/06/2021 6:58 Primary squamous Results for AMINOTRANSFERASE [employer] cell carcinoma of this p rocedure larynx are in the results section. ALKALINE PHOSPHATASE Routine 06/06/2021 6:58 Primary squamous Results for [employer] cell carcinoma of this proce dure larynx are in the results section. ALBUMIN LEVEL Routine 06/06/2021 6:58 Primary squamous Results for [employer] cell carcinoma of this proce dure larynx are in the results section. CALCIUM LEVEL TOTAL Routine 06/06/2021 6:58 Primary squamous R esults for [employer] cell carcinoma of this proce dure larynx are in the results section. .GLOMERULAR FILTRATION Routine 06/06/2021 6:58 Primary [facility] Results for RATE [employer] cell carcinoma of this proce dure larynx are in the results section. SERUM CREATININE Routine 06/06/2021 6:58 Primary squamous Resu lts for [employer] cell carcinoma of this proce dure larynx are in the results section. ELECTROLYTE PANEL Routine 06/06/2021 6:58 Primary squamous Res ults for [employer] cell carcinoma of this proce dure larynx are in the results section. BLOOD UREA NITROGEN Routine 06/06/2021 6:58 Primary squamous R esults for [employer] cell carcinoma of this proce dure larynx are in the results section. GLUCOSE LEVEL Routine 06/06/2021 6:58 Primary squamous Results for [employer] cell carcinoma of this proce dure larynx are in the results section. PHOSPHORUS LEVEL Routine 06/06/2021 6:58 Primary squamous Resu lts for [employer] cell carcinoma of this proce dure larynx are in the results section. MAGNESIUM LEVEL Routine 06/06/2021 6:58 Primary squamous Resul ts for [employer] cell carcinoma of this proce dure larynx are in the results section. COMPLETE BLOOD COUNT W/ Routine 06/06/2021 6:58 Primary [facility] DIFFERENTIAL [employer] cell carcinoma of larynx COMPREHENSIVE METABOLIC Routine 06/06/2021 6:58 Primary [facility] PANEL [employer] cell carcinoma of larynx MANUAL DIFFERENTIAL Routine 05/30/2021 8:28 Primary squamous R esults for [employer] cell carcinoma of this proce dure larynx are in the results section. Results CBC Routine 05/30/2021 8:28 Primary squamous Results for [employer] cell carcinoma of this proce dure larynx are in the results section. FRACTIONATED BILIRUBIN Routine 05/30/2021 8:28 Primary [facility] Results for [employer] cell carcinoma of this proce dure larynx are in the results section. TOTAL PROTEIN Routine 05/30/2021 8:28 Primary squamous Results for [employer] cell carcinoma of this proce dure larynx are in the results section. ASPARTATE Routine 05/30/2021 8:28 Primary squamous Results for AMINOTRANSFERASE [employer] cell carcinoma of this p rocedure larynx are in the results section. ALANINE Routine 05/30/2021 8:28 Primary squamous Results for AMINOTRANSFERASE [employer] cell carcinoma of this p rocedure larynx are in the results section. ALKALINE PHOSPHATASE Routine 05/30/2021 8:28 Primary squamous Results for [employer] cell carcinoma of this proce dure larynx are in the results section. ALBUMIN LEVEL Routine 05/30/2021 8:28 Primary squamous Results for [employer] cell carcinoma of this proce dure larynx are in the results section. CALCIUM LEVEL TOTAL Routine 05/30/2021 8:28 Primary squamous R esults for [employer] cell carcinoma of this proce dure larynx are in the results section. .GLOMERULAR FILTRATION Routine 05/30/2021 8:28 Primary [facility] Results for RATE [employer] cell carcinoma of this proce dure larynx are in the results section. SERUM CREATININE Routine 05/30/2021 8:28 Primary squamous Resu lts for [employer] cell carcinoma of this proce dure larynx are in the results section. ELECTROLYTE PANEL Routine 05/30/2021 8:28 Primary squamous Res ults for [employer] cell carcinoma of this proce dure larynx are in the results section. BLOOD UREA NITROGEN Routine 05/30/2021 8:28 Primary squamous R esults for [employer] cell carcinoma of this proce dure larynx are in the results section. GLUCOSE LEVEL Routine 05/30/2021 8:28 Primary squamous Results for [employer] cell carcinoma of this proce dure larynx are in the results section. PHOSPHORUS LEVEL Routine 05/30/2021 8:28 Primary squamous Resu lts for [employer] cell carcinoma of this proce dure larynx are in the results section. MAGNESIUM LEVEL Routine 05/30/2021 8:28 Primary squamous Resul ts for [employer] cell carcinoma of this proce dure larynx are in the results section. COMPLETE BLOOD COUNT W/ Routine 05/30/2021 8:28 Primary [facility] DIFFERENTIAL [employer] cell carcinoma of larynx COMPREHENSIVE METABOLIC Routine 05/30/2021 8:28 Primary [facility] PANEL [employer] cell carcinoma of larynx MANUAL DIFFERENTIAL Routine 05/23/2021 8:42 Primary squamous R esults for [employer] cell carcinoma of this proce dure larynx are in the results section. Results CBC Routine 05/23/2021 8:42 Primary squamous Results for [employer] cell carcinoma of this proce dure larynx are in the results section. FRACTIONATED BILIRUBIN Routine 05/23/2021 8:42 Primary [facility] Results for [employer] cell carcinoma of this proce dure larynx are in the results section. TOTAL PROTEIN Routine 05/23/2021 8:42 Primary squamous Results for [employer] cell carcinoma of this proce dure larynx are in the results section. ASPARTATE Routine 05/23/2021 8:42 Primary squamous Results for AMINOTRANSFERASE [employer] cell carcinoma of this p rocedure larynx are in the results section. ALANINE Routine 05/23/2021 8:42 Primary squamous Results for AMINOTRANSFERASE [employer] cell carcinoma of this p rocedure larynx are in the results section. ALKALINE PHOSPHATASE Routine 05/23/2021 8:42 Primary squamous Results for [employer] cell carcinoma of this proce dure larynx are in the results section. ALBUMIN LEVEL Routine 05/23/2021 8:42 Primary squamous Results for [employer] cell carcinoma of this proce dure larynx are in the results section. CALCIUM LEVEL TOTAL Routine 05/23/2021 8:42 Primary squamous R esults for [employer] cell carcinoma of this proce dure larynx are in the results section. .GLOMERULAR FILTRATION Routine 05/23/2021 8:42 Primary [facility] Results for RATE [employer] cell carcinoma of this proce dure larynx are in the results section. SERUM CREATININE Routine 05/23/2021 8:42 Primary squamous Resu lts for [employer] cell carcinoma of this proce dure larynx are in the results section. ELECTROLYTE PANEL Routine 05/23/2021 8:42 Primary squamous Res ults for [employer] cell carcinoma of this proce dure larynx are in the results section. BLOOD UREA NITROGEN Routine 05/23/2021 8:42 Primary squamous R esults for [employer] cell carcinoma of this proce dure larynx are in the results section. GLUCOSE LEVEL Routine 05/23/2021 8:42 Primary squamous Results for [employer] cell carcinoma of this proce dure larynx are in the results section. PHOSPHORUS LEVEL Routine 05/23/2021 8:42 Primary squamous Resu lts for [employer] cell carcinoma of this proce dure larynx are in the results section. MAGNESIUM LEVEL Routine 05/23/2021 8:42 Primary squamous Resul ts for [employer] cell carcinoma of this proce dure larynx are in the results section. COMPLETE BLOOD COUNT W/ Routine 05/23/2021 8:42 Primary [facility] DIFFERENTIAL [employer] cell carcinoma of larynx COMPREHENSIVE METABOLIC Routine 05/23/2021 8:42 Primary [facility] PANEL [employer] cell carcinoma of larynx FL MODIFIED BARIUM Routine 05/18/2021 9:57 Primary squamous Re sults for SWALLOW W SPEECH [employer] cell carcinoma of this p rocedure larynx are in the results section. CT HEAD/NECK SIMULATION Routine 05/11/2021 10:46 Primary [facility] Results for WO CONTRAST (RO) [employer] cell carcinoma of this p rocedure larynx are in the results section. COVID-19 Routine 05/11/2021 9:05 Encounter for Results for (SARS-COV-2) PCR [employer] observation for this pro cedure ASYMPTOMATIC other suspected are in the exposure to results biological agent section. ruled out ORTHOPANTOGRAM Routine 05/06/2021 10:53 Encounter for Results for [employer] observation for this procedu re other suspected are in the disease ruled out results section. [employer] 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 Routine 05/06/2021 9:58 Primary squamous Results for [employer] cell carcinoma of this proce dure larynx are in the results section. FRACTIONATED BILIRUBIN Routine 05/04/2021 11:10 Primary [facility] Results for [employer] cell carcinoma of this proce dure larynx are in the results section. TOTAL PROTEIN Routine 05/04/2021 11:10 Primary squamous Result s for [employer] cell carcinoma of this proce dure larynx are in the results section. ASPARTATE Routine 05/04/2021 11:10 Primary squamous Results for AMINOTRANSFERASE [employer] cell carcinoma of this p rocedure larynx are in the results section. ALANINE Routine 05/04/2021 11:10 Primary squamous Results for AMINOTRANSFERASE [employer] cell carcinoma of this p rocedure larynx are in the results section. ALKALINE PHOSPHATASE Routine 05/04/2021 11:10 Primary squamous Results for [employer] cell carcinoma of this proce dure larynx are in the results section. ALBUMIN LEVEL Routine 05/04/2021 11:10 Primary squamous Result s for [employer] cell carcinoma of this proce dure larynx are in the results section. .GLOMERULAR FILTRATION Routine 05/04/2021 11:10 Primary [facility] Results for RATE [employer] cell carcinoma of this proce dure larynx are in the results section. SERUM CREATININE Routine 05/04/2021 11:10 Primary squamous Res ults for [employer] cell carcinoma of this proce dure larynx are in the results section. VITAMIN D 25 HYDROXY Routine 05/04/2021 11:10 Primary squamous Results for LEVEL [employer] cell carcinoma of this proce dure larynx are in the results section. HEPATIC FUNCTION PANEL Routine 05/04/2021 11:10 Primary [place] [facility] [employer] cell carcinoma of larynx CALCIUM LEVEL TOTAL Routine 05/04/2021 11:10 Primary squamous Results for [employer] cell carcinoma of this proce dure larynx are in the results section. PHOSPHORUS LEVEL Routine 05/04/2021 11:10 Primary squamous Res ults for [employer] cell carcinoma of this proce dure larynx are in the results section. MAGNESIUM LEVEL Routine 05/04/2021 11:10 Primary squamous Resu lts for [employer] cell carcinoma of this proce dure larynx are in the results section. GLUCOSE, RANDOM Routine 05/04/2021 11:10 Primary squamous Resu lts for [employer] cell carcinoma of this proce dure larynx are in the results section. SERUM CREATININE Routine 05/04/2021 11:10 Primary squamous [employer] cell carcinoma of larynx BLOOD UREA NITROGEN Routine 05/04/2021 11:10 Primary squamous Results for [employer] cell carcinoma of this proce dure larynx are in the results section. ELECTROLYTE PANEL Routine 05/04/2021 11:10 Primary squamous Re sults for [employer] cell carcinoma of this proce dure larynx are in the results section. MD COVID-19 Routine 05/04/2021 10:23 Suspected COVID-19 Resul ts for (SARS-COV-2) PCR [employer] this proced ure ASYMPTOMATIC are in the results section. TMP HCVAB INTERP Routine 05/03/2021 8:26 Results for [employer] this procedure are in the results section. FRACTIONATED BILIRUBIN Routine 05/03/2021 8:26 Primary [facility] Results for [employer] cell carcinoma of this proce dure larynx are in the results section. TOTAL PROTEIN Routine 05/03/2021 8:26 Primary squamous Results for [employer] cell carcinoma of this proce dure larynx are in the results section. ASPARTATE Routine 05/03/2021 8:26 Primary squamous Results for AMINOTRANSFERASE [employer] cell carcinoma of this p rocedure larynx are in the results section. ALANINE Routine 05/03/2021 8:26 Primary squamous Results for AMINOTRANSFERASE [employer] cell carcinoma of this p rocedure larynx are in the results section. ALKALINE PHOSPHATASE Routine 05/03/2021 8:26 Primary squamous Results for [employer] cell carcinoma of this proce dure larynx are in the results section. ALBUMIN LEVEL Routine 05/03/2021 8:26 Primary squamous Results for [employer] cell carcinoma of this proce dure larynx are in the results section. CALCIUM LEVEL TOTAL Routine 05/03/2021 8:26 Primary squamous R esults for [employer] cell carcinoma of this proce dure larynx are in the results section. .GLOMERULAR FILTRATION Routine 05/03/2021 8:26 Primary squam[facility] s Results for RATE [employer] cell carcinoma of this proce dure larynx are in the results section. SERUM CREATININE Routine 05/03/2021 8:26 Primary squamous Resu lts for [employer] cell carcinoma of this proce dure larynx are in the results section. ELECTROLYTE PANEL Routine 05/03/2021 8:26 Primary squamous Res ults for [employer] cell carcinoma of this proce dure larynx are in the results section. BLOOD UREA NITROGEN Routine 05/03/2021 8:26 Primary squamous R esults for [employer] cell carcinoma of this proce dure larynx are in the results section. GLUCOSE LEVEL Routine 05/03/2021 8:26 Primary squamous Results for [employer] cell carcinoma of this proce dure larynx are in the results section. MANUAL DIFFERENTIAL Routine 05/03/2021 8:26 Primary squamous R esults for [employer] cell carcinoma of this proce dure larynx are in the results section. Results CBC Routine 05/03/2021 8:26 Primary squamous Results for [employer] cell carcinoma of this proce dure larynx are in the results section. FREE THYROXINE Routine 05/03/2021 8:26 Primary squamous Result s for [employer] cell carcinoma of this proce dure larynx are in the results section. HEPATITIS C VIRUS Routine 05/03/2021 8:26 Primary squamous Res ults for ANTIBODY AM [employer] cell carcinoma of this proce dure larynx are in the results section. THYROID STIMULATING Routine 05/03/2021 8:26 Primary squamous R esults for HORMONE AM [employer] cell carcinoma of this proce dure larynx are in the results section. COMPREHENSIVE METABOLIC Routine 05/03/2021 8:26 Primary squamo us PANEL AM [employer] cell carcinoma of larynx COMPLETE BLOOD COUNT W/ Routine 05/03/2021 8:26 Primary squamo us DIFFERENTIAL AM [employer] cell carcinoma of larynx CT CHEST W CONTRAST Routine 05/03/2021 7:27 Primary squamous R esults for AM [employer] cell carcinoma of this proce dure larynx are in the results section. CT SOFT TISSUE NECK W Routine 05/03/2021 7:27 Primary squamous Results for CONTRAST AM [employer] cell carcinoma of this proce dure larynx are in the results section. POC CREATININE Routine 05/03/2021 6:56 Results fo r AM [employer] this procedure are in the results section. after 04/18/2021 Results (ABNORMAL) POC Glucose Screen (04/16/2022 5:53 AM [employer])Only the most recent of146 resultswithin the time period is included. P athologist Signature POC Glucose 127 (H) 70 - 99 POC TELCOR mg/dL [...] Sample Type Capillary POC TELCOR Performing Lab [facility] POC TELCO R Comment: [facility], [address] [place] [address], [place] [address]; Lab Direct or: Loida Chavez MD Specimen Anatomical Collection Method Collection Time Receive d Time (Source) Location / / Volume Laterality Blood 04/16/2022 5:53 AM 2 5:53 [employer] AM [employer] Ene Polk MD POCT ORDERABLES - DEVICE Performing Organization Address City/State/ZIP Code Phon e Number POC TELCOR (ABNORMAL) .Serum Creatinine (04/16/2022 4:00 AM [employer])Only the most recent of70 resultswithin the time period is included. athologist Signature Creatinine 0.63 (L) 0.67 - 1.17 [facility] mg/dL [facility] Specimen Anatomical Collection Method Collection Time Receive d Time (Source) Location / / Volume Laterality Blood 04/16/2022 4:00 AM 2 4:26 [employer] AM [employer] Ene Polk MD LAB BLOOD ORDERABLES Performing Organization Address City/[facility] Phon e Number [facility] CANCER Unless otherwise noted, [address] all lab tests performed by: Division of Pathology and Laboratory Medicine [address] [place] [address] Glomerular Filtration Rate (04/16/2022 4:00 AM [employer])Only the most recent of70 resultswithin the time period is included. athologist Signature eGFR 100 >=60 [facility] mL/min/1.73 [facility] sq. m Comment: The eGFRcr is calculated with the 2020 KD-EPI creatinine equation using creatinine, patient's age, and sex for adults 18 years of age and older. Other factors, especially muscle mass, may affect accuracy and need to be considered. According to the Kidney Disease: Improvi ng Global Outcomes (KDIGO) CKD Work Group 2012 Clinical Practice Guideline, chronic kidney disease (CKD) is defined as the abnormalities of kidney structure or function, present for more than 3 months, with implications for health. CKD should be c lassified by cause, GFR category, and albuminuria category. KDIGO guidelines provide the following GFR categories Stage Description GFR mL/min/1.73 m2 G1* Normal or high >= 90 G2* Mildly decreased 60-89 G3a Mildly to moderately decreased 45-59 G3b Moderately to severely decreased 30- 44 G4 Severely decreased 15-29 G5 Kidney failure <15 *In the absence of evidence of kidney da mage, neither G1 nor G2 fulfill criteria for CKD. Specimen Anatomical Collection Method Collection Time Receive d Time (Source) Location / / Volume Laterality Blood 04/16/2022 4:00 AM 4:26 [employer] AM [employer] Ene Polk MD LAB BLOOD ORDERABLES Performing Organization Address City/State/ZIP Code Phon e Number [facility] CANCER Unless otherwise noted, [place] [address] [address]OM[address] BROOK all lab tests performed by: Division of Pathology and Laboratory Medicine [facility] (ABNORMAL) Complete Blood Count w/o Differential (04/16/2022 4:00 AM [employer])Only the most recent of7 resultswithin the time period is included. athologist Signature WBC 4.0 4.0 - 11.0 [facility] RBC 2.46 (L) 4.50 - SD MD 6.00 [facility] Hgb 7.0 (L) 14.0 - SD MD 18.0 gm/dL [facility] Hct 21.7 (L) 40.0 - SD MD 54.0 % [facility] MCV 88 82 - 98 [facility] MCH 28.5 27.0 - SD MD 31.0 [facility] MCHC 32.3 31.0 - SD MD 36.0 gm/dL [facility] RDW-SD 50.4 (H) 35.1 - SD MD 46.3 [facility] RDW-CV 16.0 (H) 12.0 - SD MD 15.5 [facility] Platelet count 157 140 - 440 [facility] MPV 11.2 (H) 4.0 - 10.4 [facility] INRBC 0.8 (H) <=0.0 % [facility] Comment: The INRBC (instrument NRBC) value reflec [...] (Source) Location / / Volume Laterality Blood 04/16/2022 4:00 AM 2 4:23 [employer] AM [employer] Ene Polk MD LAB BLOOD ORDERABLES Performing Organization Address City/[facility]/ZIP Code Phon e Number [facility] CANCER Unless otherwise noted, [address] all lab tests performed by: Division of Pathology and Laboratory Medicine [address] (ABNORMAL) BUN (04/16/2022 4:00 AM [employer])Only the most recent of70 resultswithin the time period is included. P athologist Signature BUN 24 (H) 6 - 23 [facility] mg/dL [facility] Specimen Anatomical Collection Method Collection Time Receive d Time (Source) Location / / Volume Laterality Blood 04/16/2022 4:00 AM 2 4:26 [employer] AM [employer] Ene Polk MD LAB BLOOD ORDERABLES Performing Organization Address City/[facility] Code Phon e Number [facility] CANCER Unless otherwise noted, [address] all lab tests performed by: Division of Pathology and Laboratory Medicine [address] Phosphorus Level (04/16/2022 4:00 AM [employer])Only the most recent of54 resultswithin the time period is included. P athologist Signature Phosphorus 3.3 2.5 - 4.5 [facility] mg/dL [facility] Specimen Anatomical Collection Method Collection Time Receive d Time (Source) Location / / Volume Laterality Blood 04/16/2022 4:00 AM 2 4:26 [employer] AM [employer] Valentina Walters APN LAB BLOOD ORDERABLES Performing Organization Address City/[facility]/ZIP Code Phon e Number [facility]ER Unless otherwise noted, [address] all lab tests performed by: Division of Pathology and Laboratory Medicine [address] Magnesium Level (04/16/2022 4:00 AM [employer])Only the most recent of58 resultswithin the time period is included. athologist Signature Magnesium 2.2 1.6 - 2.6 [facility] mg/dL [facility] Specimen Anatomical Collection Method Collection Time Receive d Time (Source) Location / / Volume Laterality Blood 04/16/2022 4:00 AM 2 4:26 [employer] AM [employer] Ene Polk MD LAB BLOOD ORDERABLES Performing Organization Address City/[facility] Phon e Number [facility] CANCER Unless otherwise noted, [address] all lab tests performed by: Division of Pathology and Laboratory Medicine [address] (ABNORMAL) Glucose Level (04/16/2022 4:00 AM [employer])Only the most recent of67 resultswithin the time period is included. athologist Signature Glucose Level 135 (H) 70 - 99 [facility] mg/dL [facility] Comment: Effective 12/29/15, the glucose reference intervals have been updated based on [place] [employer] guidelines (Standards of Medical Care [...] (Source) Location / / Volume Laterality Blood 04/16/2022 4:00 AM 2 4:26 [employer] AM [employer] Ene Polk MD LAB BLOOD ORDERABLES Performing Organization Address City/State/ZIP Code Phon e Number [facility] Unless otherwise noted, [address] all lab tests performed by: Division of Pathology and Laboratory Medicine [address] Calcium Level (04/16/2022 4:00 AM [employer])Only the most recent of53 resultswithin the time period is included. athologist Signature Calcium Lvl 8.5 8.4 - 10.2 [facility] mg/dL [facility] Specimen Anatomical Collection Method Collection Time Receive d Time (Source) Location / / Volume Laterality Blood 04/16/2022 4:00 AM 2 4:26 [employer] AM [employer] Ene Polk MD LAB BLOOD ORDERABLES Performing Organization Address City/[facility]/ZIP [facility] Phon e Number [facility] CANCER Unless otherwise noted, [address] all lab tests performed by: Division of Pathology and Laboratory Medicine [address] [place] [address] (ABNORMAL) Electrolyte Panel (04/16/2022 4:00 AM [employer])Only the most recent of69 resultswithin the time period is included. athologist Signature Sodium Lvl 143 136 - 145 [facility] mEq/L [facility] Potassium Lvl 3.9 3.5 - 5.1 [facility] mEq/L [facility] Chloride 111 (H) 98 - 107 [facility] mEq/L [facility] CO2 27 22 - 29 [facility] mEq/L [facility] Anion Gap 5 4 - 14 [facility] mEq/L [facility] Specimen Anatomical Collection Method Collection Time Receive d Time (Source) Location / / Volume Laterality Blood 04/16/2022 4:00 AM 2 4:26 [employer] AM [employer] Ene Polk MD LAB BLOOD ORDERABLES Performing Organization Address City/[facility] Phon e Number [facility] CANCER Unless otherwise noted, [address] all lab tests performed by: Division of Pathology and Laboratory Medicine [address] [place] [address] Tip Verification Central Vascular Access Device (04/13/2022 10:32 PM [employer])Only the most recent of3 resultswithin the time period is included. Andrea Sanders RN - 04/13/2022 10:3 2 PM [employer] Andrea Prado RN 04/13/2022 10:33 PM Central Vascular Access Device Tip Verif ication Performed by: Andrea Prado RN Authorized by: Ene Polk MD CVAD Properties Date device placed: 04/13/2022 Placed by: Ilsa Dawson RN Device placement location: [facility] Catheter Type: PICC Catheter lumen: Double lumen Vein location: Brachial Laterality: Left Tip Verification Properties Diagnostic image available: Chest xray Written diagnostic report available: Yes Tip location per report: Superior vena cava Tip in good position and cleared for inf usion Ene Polk MD IV THERAPY ORDERABLES XR Chest 1 View Post Implant (04/13/2022 9:41 PM [employer]) Anatomical Region Laterality Modality Chest Digital Radiography Specimen (Source) Anatomical Collection Method Collection Time Re ceived Time Location / / Volume Laterality 04/13/2022 9:59 PM [employer] Impressions 04/13/2022 10:00 PM [employer] Left PICC terminates in SVC. 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 Findings: Left PICC terminates in SVC. Right costo phrenic sulcus is not completely imaged. No definite pleural fluid. No pneumothorax. No definite airspace disease. Surgical changes of the neck are incompletely imaged. Procedure Note Jabier Cunningham MD - 04/13/2022Formattin g of this note might be different from the original. 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 Findings: Left PICC terminates in SVC. Right costo phrenic sulcus is not completely imaged. No definite pleural fluid. No pneumothorax. No definite airspace disease. Surgical changes of the neck are incompletely imaged. IMPRESSION: Left PICC terminates in SVC. Shalini Hollingsworth APN IMG DIAGNOSTIC IMAGING ORDER YOVANI Insert Vascular Access Device: PICC (04/13/2022 5:30 PM [employer])Only the most recent of3 resultswithin the time period is included. Narrative Ilsa Dawson RN - 04/13/2022 5:30 PM [employer] Ilsa Dawson RN 04/13/2022 6:12 PM Insertion of 4 Fr double lumen left brac hial PICC Date/Time: 04/13/2022 5:30 PM Proceduralist Type: RN Proceduralist: Ilsa Dawson RN Ordered By: Shalini Fofana RN Procedure Location: ICU Nurse Practitioner Home Assessments present: yes (Dayo Tomas RN) Pre- Procedure diagnosis: Squamous carci noma of Larynx. Post-Procedure diagnosis: unchanged Indication for Procedure: Vascular Acces s Pre-Procedure Evaluation Patient examined pre-procedure and asses sment (including allergies, labs, imaging, history and physical exam) perf ormed. Informed consent obtained prior to procedure, the risks, benefits, and alternative discussed with patient/designated customer counter representative. Pre-p rocedure the patient was alert. [...] used. The patient was placed in a Head of Bed Elevated and Head Turned to Sideposition. The insertion site was anesthetized with lidocaine 1% without epinephrine via subcutaneous needle . A high level disinfected ultrasound probe with sterile cover was used for guidance . The ultrasound demonstrated compressibility of theleft brachial vein . Venous access obtained using the micropuncture needle. Non-pulsatile da rk red blood obtained. A permanent record of the ultrasound-guided vessel p uncture image has been stored. Sterile Seldinger technique used (modifi ed). Drip test performed to confirm venous pl acement. Dilator inserted gently over guidewire. A new 4 Fr double lumen power rated 0 cm external left brachial PICC was inserted successfully with good flow and blood return in all lumens. Catheter Internal Length (cm): 42 Catheter Trim Length (cm): 42 Number of insertion attempt(s) was 1. Guidewire [...] return through all lumens. Tip Verification: The left brachial PICC. Pending catheter tip clearance, see Tip Verification smart note. placement and tip verified using tip lumber piler and P wave identified with placement Complications: no immediate complication Patient Condition: patient tolerated the procedure well with no immediate complications and patient remained hemod ynamically stable throughout the procedure Responsiveness: alert and awake Patient Disposition: remain in inpatient bed, report given to bedside nurse and printed education material pro vided to patient/caregiver Comments Chest x-ray pending. Shalini Hollingsworth APN IV THERAPY ORDERABLES Vascular Access Ultrasound- VAP RN Device (04/13/2022 3:49 PM [employer])Only the most recent of4 resultswithin the time period is included. Specimen (Source) Anatomical Location Collection Method / Collectio n Time Received Time / Laterality Volume Narrative Systemgenerated, Documentation - 022 3:49 PM [employer] This procedure requires no interpretatio n from the radiologist. Ene Polk MD IMG NON DI ORDERABLES General Laboratory Add-On Test (04/13/2022 8:39 AM [employer])Only the most recent of6 resultswithin the time period is included. Analysis Performed At Patho logist Time Signature Ordered Test Added [facility] Test Needed Phosphorous [facility] Specimen Anatomical Collection Method Collection Time Receive d Time (Source) Location / / Volume Laterality Existing 04/13/2022 8:39 AM 8:39 [employer] AM [employer] Valentina Walters APN LAB BLOOD ORDERABLES Performing Organization Address City/State/ZIP Code Phon e Number [facility] CANCER Unless otherwise noted, [place] [address] [address]OM[address]OOK all lab tests performed by: Division of Pathology and Laboratory Medicine [facility] (ABNORMAL) NT-Pro BNP (In-House) (04/12/2022 2:33 PM [employer])Only the most recent of 6 resultswithin the time period is included. athologist [facility] NT ProBNP 1,432 (H) <=125 pg/mL [facility] Specimen Anatomical Collection Method Collection Time Receive d Time (Source) Location / / Volume Laterality Blood 04/12/2022 2:33 PM 3:05 [employer] PM [employer] Ene Polk MD LAB BLOOD ORDERABLES Performing Organization Address City/State/ZIP Code Phon e Number [facility]ER Unless otherwise noted, [place], [place] [id number] [place] [address] all lab tests performed by: Division of Pathology and Laboratory Medicine [facility] (ABNORMAL) .CBC (04/11/2022 12:44 PM [employer])Only the most recent of51 resultswithin the time period is included. athologist [facility] WBC 2.8 (L) 4.0 - 11.0 [facility] RBC 2.51 (L) 4.50 - [facility] 6.00 /[facility] Hgb 7.3 (L) 14.0 - SD MD 18.0 gm/dL [facility] Hct 22.0 (L) 40.0 - SD MD 54.0 % [facility] MCV 88 82 - 98 [facility] MCH 29.1 27.0 - SD MD 31.0 pg [facility] MCHC 33.2 31.0 - SD MD 36.0 gm/dL [facility] RDW-SD 48.1 (H) 35.1 - SD MD 46.3 [facility] RDW-CV 15.1 12.0 - SD MD 15.5 % [facility] Platelet count 109 (L) 140 - 440 [facility] MPV 10.6 (H) 4.0 - 10.4 [facility] INRBC 0.0 <=0.0 % [facility] Comment: The INRBC (instrument NRBC) value reflec [...] (Source) Location / / Volume Laterality Blood 04/11/2022 12:44 04/11/2022 PM [employer] 12:51 PM [employer] Narrative [facility] - 2 1:05 PM [employer] With the next BMP Valentina Walters APN LAB BLOOD ORDERABLES Performing Organization Address City/State/ZIP Code Phon e Number [facility]ER Unless otherwise noted, [place] [address] [address]OM[address] BROOK all lab tests performed by: Division of Pathology and Laboratory Medicine [address] (ABNORMAL) Differential (04/11/2022 12:44 PM [employer])Only the most recent of51 resultswithin the time period is included. athologist Signature Neutrophil % 70.7 (H) 42.0 - [facility] 66.0 % [facility] Lymphocyte % 14.8 (L) 24.0 - [facility] 44.0 % [facility] Monocyte % 8.1 (H) 2.0 - 7.0 [facility] % [facility] CENTER Eosinophil % 4.6 (H) 1.0 - 4.0 [facility] % [facility] CENTER Basophil % 0.7 0.0 - 1.0 [facility] % [facility] CENTER IGRE % 1.1 (H) 0.0 - 0.4 [facility] % [facility] Comment: IGRE % count includes Metamyelo cytes, Myelocytes, and Promyelocytes. Neutrophil Abs 2.01 1.70 - 7.30 K/uL SD [facility] Lymphocyte Abs 0.42 (L) 1.00 - 4.80 K/uL SD MD AKBAR [facility] Monocyte Abs 0.23 0.08 - 0.70 K/uL SD MD [facility] Eosinophil Abs 0.13 0.04 - 0.40 K/uL SD MD AKBAR [facility] Basophil Abs 0.02 0.00 - 0.10 K/uL SD MD [facility] IG Abs 0.03 0.00 - 0.04 K/uL SD MD TASHI Trinidad [facility] Specimen Anatomical Collection Method Collection Time Receive d Time (Source) Location / / Volume Laterality Blood 04/11/2022 12:44 04/11/2022 PM [employer] 12:51 PM [employer] Narrative [facility] - 2 1:06 PM [employer] With the next BMP Valentina Walters APN LAB BLOOD ORDERABLES Performing Organization Address City/[facility]/ZIP Code Phon e Number [facility] Unless otherwise noted, [address] all lab tests performed by: Division of Pathology and Laboratory Medicine [address] [place] [address] (ABNORMAL) Fractionated Bilirubin (04/11/2022 3:30 AM [employer])Only the most recent of24 resultswithin the time period is included. athologist Signature Bili Total 0.8 <=1.2 mg/dL [facility] Comment: Indocyanine Green (ICG) may cause falsel y elevated bilirubin results. Total and direct bilirubin must not be measured from samples containing indocyanine green. False elevation of total bilirubin can b e seen in patients with IgG concentrations above 28 g/L. Bili Direct 0.4 (H) <=0.3 mg/dL [facility] Comment: Indocyanine Green (ICG) may cau se falsely elevated bilirubin results. Total and direct bilirubin must not be measure d from samples containing indocyanine green. Bili Indirect 0.4 0.0 - 0.9 mg/dL SD MD [facility] Specimen Anatomical Collection Method Collection Time Receive d Time (Source) Location / / Volume Laterality Blood 04/11/2022 3:30 AM 2 3:56 [employer] AM [employer] Eric Fitzpatrick MD LAB BLOOD ORDERABLES Performing Organization Address City/[facility]/ZIP Code Phon e Number [facility] Unless otherwise noted, [address] all lab tests performed by: Division of Pathology and Laboratory Medicine [facility] aPTT (04/11/2022 3:30 AM [employer])Only the most recent of16 resultswithin the time period is included. athologist Signature aPTT 60.3 (H) 22.8 - 34.2 [facility]() [facility] Specimen Anatomical Collection Method Collection Time Receive d Time (Source) Location / / Volume Laterality Blood 04/11/2022 3:30 AM 2 3:42 [employer] AM [employer] Michael Craig MD LAB BLOOD ORDERABLES Performing Organization Address City/[facility]/ZIP Code Phon e Number [facility] Unless otherwise noted, [address] all lab tests performed by: Division of Pathology and Laboratory Medicine [facility] ALT (04/11/2022 3:30 AM [employer])Only the most recent of24 resultswithin the time period is included. P athologist Signature ALT 18 <=41 U/L [facility] Specimen Anatomical Collection Method Collection Time Receive d Time (Source) Location / / Volume Laterality Blood 04/11/2022 3:30 AM 2 3:56 [employer] AM [employer] Eric Fitzpatrick MD LAB BLOOD ORDERABLES Performing Organization Address City/State/ZIP [facility] Phon e Number [facility] Unless otherwise noted, [address] all lab tests performed by: Division of Pathology and Laboratory Medicine [address] [place] [address] Aspartate Aminotransferase (04/11/2022 3:30 AM [employer])Only the most recent of24 resultswithin the time period is included. P athologist Signature AST 36 <=40 U/L [facility] Specimen Anatomical Collection Method Collection Time Receive d Time (Source) Location / / Volume Laterality Blood 04/11/2022 3:30 AM 2 3:56 [employer] AM [employer] Eric Fitzpatrick MD LAB BLOOD ORDERABLES Performing Organization Address City/[facility]/ZIP Code Phon e Number [facility] Unless otherwise noted, [address] all lab tests performed by: Division of Pathology and Laboratory Medicine [address] [place] [address] (ABNORMAL) Total Protein (04/11/2022 3:30 AM [employer])Only the most recent of23 resultswithin the time period is included. P athologist Signature Total Protein 5.1 (L) 6.4 - 8.3 [facility] g/dL [facility] Specimen Anatomical Collection Method Collection Time Receive d Time (Source) Location / / Volume Laterality Blood 04/11/2022 3:30 AM 2 3:56 [employer] AM [employer] Eric Fitzpatrick MD LAB BLOOD ORDERABLES Performing Organization Address City/State/ZIP Code Phon e Number [place] MD [facility] Unless otherwise noted, [address] all lab tests performed by: Division of Pathology and Laboratory Medicine [address] [place] [address] Alkaline Phosphatase (04/11/2022 3:30 AM [employer])Only the most recent of24 results within the time period is included. athologist Signature Alk Phos 85 40 - 129 [facility] U/L [facility] Specimen Anatomical Collection Method Collection Time Receive d Time (Source) Location / / Volume Laterality Blood 04/11/2022 3:30 AM 2 3:56 [employer] AM [employer] Eric Fitzpatrick MD LAB BLOOD ORDERABLES Performing Organization Address City/State/ZIP Code Phon e Number [facility] CANCER Unless otherwise noted, [address] all lab tests performed by: Division of Pathology and Laboratory Medicine [address] [place] [address] (ABNORMAL) Albumin Level (04/11/2022 3:30 AM [employer])Only the most recent of25 resultswithin the time period is included. athologist [facility] Albumin Lvl 2.7 (L) 3.5 - 5.2 [facility] gm/dL [facility] Specimen Anatomical Collection Method Collection Time Receive d Time (Source) Location / / Volume Laterality Blood 04/11/2022 3:30 AM 2 3:56 [employer] AM [employer] Eric Fitzpatrick MD LAB BLOOD ORDERABLES Performing Organization Address City/State/ZIP Code Phon e Number [facility] CANCER Unless otherwise noted, [address] all lab tests performed by: Division of Pathology and Laboratory Medicine [address] [place], [place] [address]d XR Chest 1 View (04/10/2022 5:22 PM [employer])Only the most recent of6 resultswithin the time period is included. Anatomical Region Laterality Modality Chest Digital Radiography Specimen (Source) Anatomical Collection Method Collection Time Re ceived Time Location / / Volume Laterality 04/10/2022 5:40 PM [employer] Impressions 04/10/2022 5:41 PM [employer] No acute findings radiographically. 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 Findings: Prior tracheostomy no longer seen. No pl eural abnormalities. No airspace disease. Procedure Note Jabier Cunningham MD - 04/10/2022Formattin g of this note might be different from the original. 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 Findings: Prior tracheostomy no longer seen. No pl eural abnormalities. No airspace disease. IMPRESSION: No acute findings radiographically. Eric Fitzpatrick MD IMG DIAGNOSTIC IMAGING ORDER YOVANI Vitamin D 25OH (04/10/2022 3:43 PM [employer])Only the most recent of2 resultswithin the time period is included. athologist Signature Vitamin D 25 OH 62 30 - 100 [facility] ng/mL [facility] Comment: Reference Range: Deficiency: <10 ng/mL Insufficiency: 10-29 ng/mL Sufficiency: 30-100 ng/mL Potential toxicity: >100 ng/mL Specimen Anatomical Collection Method Collection Time Receive d Time (Source) Location / / Volume Laterality Blood 04/10/2022 3:43 PM 4:01 [employer] PM [employer] Valentina Walters APN LAB BLOOD ORDERABLES Performing Organization Address City/State/ZIP Code Phon e Number [facility] CANCER Unless otherwise noted, [place] [address] TOMS BROOK all lab tests performed by: Division of Pathology and Laboratory Medicine [address] [place] [address] US Leg Venous Doppler Bilateral (04/10/2022 11:44 AM [employer]) Anatomical Region Laterality Modality Leg, Extremity Ultrasound Specimen (Source) Anatomical Collection Method Collection Time Re ceived Time Location / / Volume Laterality 04/10/2022 11:48 AM [employer] Impressions 04/10/2022 11:49 AM [employer] Negative for deep venous thrombosis in t he bilateral lower extremities. 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 Technique: Grayscale and color/spectral Doppler ultrasound of the bilateral lower extremity veins was performed. Findings: The bilateral common femoral, femoral, a nd popliteal veins demonstrate color flow, compressibility, and response to augmentation. The visualized posterior tibial, peroneal and anterior tibial veins are patent and compressible. Nonspecific edema in the soft tissues. Procedure Note Daniel Mcbride MD - 04/10/2022Formatting o f this note might be different from the original. 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 Technique: Grayscale and color/spectral Doppler ultrasound of the bilateral lower extremity veins was performed. Findings: The bilateral common femoral, femoral, a nd popliteal veins demonstrate color flow, compressibility, and response to augmentation. The visualized posterior tibial, peroneal and anterior tibial veins are patent and compressible. Nonspecific edema in the soft tissues. IMPRESSION: Negative for deep venous thrombosis in t he bilateral lower extremities. Eric Fitzpatrick MD IMG US ORDERABLES Aldosterone Level (04/10/2022 6:55 AM [employer]) athologist Signature Aldosterone-October <4.0 <=21 ng/dL SD MD TASHI [facility] Comment: ADDITIONAL INFORMATIO N Reference range for patients 11 years an d older is based on upright A.M. collection from subjects wi thout sodium restrictions. This test was developed and its performa nce characteristics determined by [facility] in a manner co nsistent with CLIA requirements. This test has not been loni ared or approved by the U.S. Food and Drug Administration. Test Performed by: [facility] [address] [place] [address] [phone] Washer Hand: Zhang Hammonds M.D. Ph. D.; CLIA# [id number] Specimen Anatomical Collection Method Collection Time Receive d Time (Source) Location / / Volume Laterality Blood 04/10/2022 6:55 AM 2 7:35 [employer] AM [employer] Rosemary Gardner MD LAB BLOOD ORDERABLES Performing Organization Address City/[facility] Code Phon e Number [facility] CANCER Unless otherwise noted, [address] all lab tests performed by: Division of Pathology and Laboratory Medicine [address] [place] [address] Isabell Renin Activity (04/10/2022 6:55 AM [employer]) athologist Signature Renin <0.6 ng/mL/hr [facility] Activity-[facility] Comment: REFERENCE VALUE------ (Peripheral vein specimen) Na-deplete, upright: Mean: 5.9 Range: 2.9-10.8 Na-replete, upright: Mean: 1.0 Range: < or =0.6-3.0 ADDITIONAL INFORMATIO N Testing performed by Liquid Chromatograp hy-Tandem Mass Spectrometry (LC-MS/MS). This test was developed and its performa nce characteristics determined by [facility] in a manner co nsistent with CLIA requirements. This test has not been loni ared or approved by the U.S. Food and Drug Administration. Test Performed by: [place] [id number] Washer Hand: Zhang Hammonds M.D. Ph. D.; CLIA# [id number] Specimen Anatomical Collection Method Collection Time Receive d Time (Source) Location / / Volume Laterality Blood 04/10/2022 6:55 AM 2 7:59 [employer] AM [employer] Rosemary Gardner MD LAB BLOOD ORDERABLES Performing Organization Address City/[facility] Phon e Number [facility] CANCER Unless otherwise noted, [address] all lab tests performed by: Division of Pathology and Laboratory Medicine [facility] Sosamarshall Whyte TSH (04/10/2022 6:55 AM [employer])Only the most recent of6 resultswithin the time period is included. P athologist Signature TSH 0.66 0.27 - 4.20 [facility] mcunit/mL [facility] Specimen Anatomical Collection Method Collection Time Receive d Time (Source) Location / / Volume Laterality Blood 04/10/2022 6:55 AM 2 7:24 [employer] AM [employer] Rosemary Gardner MD LAB BLOOD ORDERABLES Performing Organization Address City/[facility] Phon e Number [facility] CANCER Unless otherwise noted, [address] all lab tests performed by: Division of Pathology and Laboratory Medicine [facility] [place] (ABNORMAL) Free T4 (04/10/2022 6:55 AM [employer])Only the most recent of5 results within the time period is included. athologist Signature T4 Free 1.76 (H) 0.93 - 1.70 [facility] ng/dL [facility] Specimen Anatomical Collection Method Collection Time Receive d Time (Source) Location / / Volume Laterality Blood 04/10/2022 6:55 AM 2 7:24 [employer] AM [employer] Rosemary Gardner MD LAB BLOOD ORDERABLES Performing Organization Address [facility] Phon e Number [facility] CANCER Unless otherwise noted, [address] all lab tests performed by: Division of Pathology and Laboratory Medicine [facility] E[facility], 12-Lead (Portable) (04/10/2022)Only the most recent of8 resultswithin the time period is included. Specimen (Source) Anatomical Location Collection Method / Collectio n Time Received Time / Laterality Volume Narrative This result has an attachment that is no t available. Ene Polk MD ECG ORDERABLES Performing Organization Address City/[facility] Phon e Number GASPER IECG Clot Expiration Date (04/06/2022 2:17 AM CDT)Only the most recent of9 results within the time period is included. Patholo gist Method Time Signature T & S 04/09/2022 [facility] Specimen Anatomical Collection Method Collection Time Receive d Time (Source) Location / / Volume Laterality Blood 04/06/2022 2:17 AM 2 2:56 CDT AM CDT Ene Polk MD BLOOD BANK TEST ORDERABLES Performing Organization Address City/[facility] Phon e Number [facility] CANCER Unless otherwise noted, [address] all lab tests performed by: Division of Pathology and Laboratory Medicine [facility] TMP Interpretation Antibody Screen Negative (04/06/2022 2:17 AM CDT)Only the most recent of7 resultswithin the time period is included. [facility] Method Time Signature TMP Auto Neg At the [facility] plasma shows no evidence of RBC alloantibodi es. Comment: KHANG KARIMI MD - [id number] Dictated by: KHANG KARIMI MD - 1200 [id number] Dictated Date/Time: 04.06.2022 8:10 AM C DT Transcribed Date/Time: 04.06.2022 8:10 AM CDT Electronically Signed By: MD Carri WRIGHT [id number] on 04.06.2022 8:10 AM C Specimen Anatomical Collection Method Collection Time Receive d Time (Source) Location / / Volume Laterality Blood 04/06/2022 2:17 AM 2 2:56 CDT AM CDT Ene Polk MD BLOOD BANK TEST ORDERABLES Performing Organization Address City/State/ZIP Code Phon e Number [facility] CANCER Unless otherwise noted, [address] all lab tests performed by: Division of Pathology and Laboratory Medicine [address] ABORh (04/06/2022 2:17 AM CDT)Only the most recent of4 resultswithin the time period is included. P athologist Signature ABORh. O NEG [facility] Specimen Anatomical Collection Method Collection Time Receive d Time (Source) Location / / Volume Laterality Blood 04/06/2022 2:17 AM 2 2:56 CDT AM CDT Ene Polk MD BLOOD BANK TEST ORDERABLES Performing Organization Address City/[facility]/ZIP Code Phon e Number [facility] CANCER Unless otherwise noted, [address] all lab tests performed by: Division of Pathology and Laboratory Medicine [facility] [place] Antibody Screen (04/06/2022 2:17 AM CDT)Only the most recent of7 resultswithin the time period is included. P athologist Signature ABSC. Negative ABSC [facility] Specimen Anatomical Collection Method Collection Time Receive d Time (Source) Location / / Volume Laterality Blood 04/06/2022 2:17 AM 2 2:56 CDT AM CDT Ene Polk MD BLOOD BANK TEST ORDERABLES Performing Organization Address City/[facility]/ZIP Code Phon e Number [facility] CANCER Unless otherwise noted, [address] all lab tests performed by: Division of Pathology and Laboratory Medicine [address] [place] [address] PTH Intact (04/05/2022 6:05 PM CDT) athologist Signature PTH Intact 49.8 15.0 - 65.0 [facility] pg/mL [facility] Specimen Anatomical Collection Method Collection Time Receive d Time (Source) Location / / Volume Laterality Blood 04/05/2022 6:05 PM 2 CDT 6:13 PM CDT Narrative [facility] - 2 6:40 PM CDT On arrival to ICU or PACU Frannie Goodson MD LAB BLOOD ORDERABLES Performing Organization Address City/[facility]/ZIP Code Phon e Number [facility] CANCER Unless otherwise noted, [address] all lab tests performed by: Division of Pathology and Laboratory Medicine [facility] [place] T4 (04/05/2022 6:05 PM CDT) P athologist Signature T4 5.4 4.5 - 11.7 [facility] mcg/dL [facility] Specimen Anatomical Collection Method Collection Time Receive d Time (Source) Location / / Volume Laterality Blood 04/05/2022 6:05 PM 2 6:13 CDT PM CDT Narrative [facility] - 2 6:49 PM CDT On arrival in PACU Frannie Goodson MD LAB BLOOD ORDERABLES Performing Organization Address City/State/ZIP Code Phon e Number [facility] CANCER Unless otherwise noted, [place] [address] TOMS BROOK all lab tests performed by: Division of Pathology and Laboratory Medicine [address] (ABNORMAL) OR ABG+ (ABG, Na, K, Cl, Glu, Hct, Lactate, Ion Ca) (04/05/2022 1:50 PM CDT)Only the most recent of3 resultswithin the time period is included. athologist Signature OR Sodium, 144 136 - 146 [facility] arterial mEq/L [facility] Comment: Methodology: The ABL90 Flex Plus analyze r is an in vitro diagnostic portable, automated analyzer that measures electrolytes in whole blood. This analyzer uses potentiometry to measure K+, Na+, and Cl- . The potential of an electrode chain is measured by a voltmeter, and related to the concent ration of the sample. OR Potassium, arterial 3.0 (L) 3.4 - 4.5 mEq/L U [facility] Comment: Methodology: The ABL90 Flex Plus analyze r is an in vitro diagnostic portable, automated analyzer that measures electrolytes in whole blood. This analyzer uses potentiometry to measure K+, Na+, and Cl- . The potential of an electrode chain is measured by a voltmeter, and related to the concent ration of the sample. OR Chloride, arterial 106 98 - 106 mEq/L [facility] Comment: Methodology: The ABL90 Flex Plus analyze r is an in vitro diagnostic portable, automated analyzer that measures electrolytes in whole blood. This analyzer uses potentiometry to measure K+, Na+, and Cl- . The potential of an electrode chain is measured by a voltmeter, and related to the concent ration of the sample. OR Glucose, arterial 119 (H) 70 - 105 mg/dL [facility] Comment: Methodology: The ABL90 Flex Plus analyze r is an in vitro diagnostic portable, automated analyzer that measures metabolites in whole blood. This analyzer uses amperometry to measure glucose and lactate. The magnitude of an electrical current that flows through an electrode chain is proportion al to the concentration of the substance that is oxidized or reduced at an electrode in the chain. OR Hemoglobin, arterial 12.0 (L) 13.5 - 17.5 g/dL [facility] Comment: Methodology: The ABL90 Flex Plus analyze r is an in vitro diagnostic portable, automated analyzer that measures hemoglobin in whole blood. This analyzer uses spectrophotometry to measure hemoglobin. Light passes through a cuvette that contains a hemolyzed blood sample. Hematocrit is de rived from the total hemoglobin multiplied by the standard value 0.0301. OR Hematocrit, arterial 37 (L) 42 - 52 % [facility] OR Lactate, arterial 0.6 0.4 - 0.8 mmol/L [facility] Comment: Methodology: The ABL90 Flex Plus analyze r is an in vitro diagnostic portable, automated analyzer that measures metabolites in whole blood. This analyzer uses amperometry to measure glucose and lactate. The magnitude of an electrical current that flows through an electrode chain is proportion al to the concentration of the substance that is oxidized or reduced at an electrode in the chain. OR Ion calcium, arterial 1.20 1.15 - 1.29 mmol/L [facility] Comment: Methodology: The ABL90 Flex Plus analyze r is an in vitro diagnostic portable, automated analyzer that measures electrolytes in whole blood. This analyzer uses potentiometry to measure Ca2+. The potential of an electrode chain is measured by a voltmeter, and related to the concentrat ion of the sample. OR pH Art 7.46 (H) 7.35 - 7.45 [facility] OR pCO2 Art 38.9 35.0 - 48.0 mmHg [facility] OR pO2 Art 247 (H) 83 - 108 mmHg [facility] OR HCO3 Art 28 21 - 28 mmol/L [facility] Comment: Methodology: The ABL90 Flex Plus analyze r is an in vitro diagnostic portable, automated analyzer that measures electrolytes in whole blood. This analyzer uses potentiometry to measure K+, Na+, Cl-, and HCO3. The potential of an electrode chain is measured by a voltmeter, and related to the concentration of the sample. OR Anion Gap, arterial 11 7 - 16 mmol/L [facility] Comment: Methodology: The ABL90 Flex Plus analyze r is an in vitro diagnostic portable, automated analyzer that measures electrolytes in whole blood. This analyzer uses potentiometry to measure electrolytes. Th e potential of an electrode chain is toan sured by a voltmeter, and related to the concentrat ion of the sample. Anion gap is derived as the difference between the concentration of cations and anions. OR Base Excess Art 3 -2 - 3 mmol/L SD MD Nirmal HIGGINSRUST OR O2 Sat Art 100 (H) 95 - 99 % SD MD ANUJA Gallego [facility] Comment: The ABL90 Flex Plus analyzer is an in vi tro diagnostic portable, automated analyzer that measures pH, blood gas, electrolytes, hemoglobin, glucose and lactate in whole blood. This analyzer uses the meth odologies noted to perform quantitative measurement of the parameters listed when tested or as noted with indicated analytes. 1) K+, Na+ and Cl-, Anion Gap, Glucose , Lactate, Hemoglobin, and HCO3 -NOTE: Methodology is noted with specific analyte(s) when reported. 2) pH and pCO2 are measured by potenti ometry. The potential of an electrode chain is measured by a voltmeter, and related to the concentration of the sample. 3) pO2 is measured by optical pO2. The optical system for pO2 is based on the ability of O2 to reduce the intensity and time constant of the phosphorescence from a phosphorescent dye that is in contact with the sample. 4) sO2 is measured by spectrophotometr y. Light passes through a cuvette that contains a hemolyzed blood sample. The absorption spectrum is used to calculate oximetry parameters. FLOW/ FiO2 see note SD MD L[facility] Art Draw Site Art Line SD MD ANUJA Gallego [facility] Art Taurus Test Not Performed SD MD PATEL SUTTER [facility] Specimen Anatomical Collection Method Collection Time Receive d Time (Source) Location / / Volume Laterality Blood (Arterial 04/05/2022 1:50 PM 2021 1:54 Line) CDT PM CDT Addie Arreguin MD LAB BLOOD ORDERABLES Performing Organization Address City/State/ZIP Code Phon e Number [place] MD [facility] Unless otherwise noted, [place] [address] TOMS BROOK all lab tests performed by: Division of Pathology and Laboratory Medicine [facility] [place] Transfuse RBC: (04/05/2022 12:41 PM CDT)Only the most recent of6 resultswithin the time period is included. Addie Arreguin MD BLOOD TRANSFUSION ORDERABLES Prepare RBC: (04/05/2022 11:50 AM CDT)Only the most recent of5 resultswithin the time period is included. Patholo gist Method Time Signature Unit Number [id number] [facility] Product Code N9619G08 SD MD [facility] Unit [id number] SD MD Expiration [facility] Unit Blood 9500 SD MD Type [facility] Product Code RBCIRLR CPD AS1 SD MD Text 500mL [facility] Crossmatch [id number] SD MD Expiration [facility] Date [facility] Unit IRRADIATED SD MD Irradiated [facility] Dispense ISSUED [facility] Status [facility] [place] Unit Blood O Negative [facility] Type [facility] [place] Product Pick .BPAM [facility] Up Location [facility] Comment: Specimen (Source) Anatomical Collection Method Collection Time Re ceived Time Location / / Volume Laterality 04/05/2022 11:50 AM CDT Unknown Provider BLOOD BANK PRODUCT ORDERABLE S Performing Organization Address City/State/ZIP Code Phon e Number [facility] CANCER Unless otherwise noted, [address] all lab tests performed by: Division of Pathology and Laboratory Medicine [facility] Pathology Surgical Interpretation (04/05/2022 11:47 AM CDT)Only the most recent of2 resultswithin the time period is included. 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 9:03 AM signed by [place] No tumor present. [employer] Enedina Joel MD on 04/10/20 22 at B: Midline suprasternal soft tissue: 9:03 AM Fragments of fibroadipose ti ssue with chronic inflammation, negative for maligancy. Minute fragment of cartilage present. AEN/FQY Gross A: 04/10/2022 [facility] Description Larynx, total laryngectomy w ith anterior esophagectomy or6: Consists of a total laryngectomy measuring 8.5 x 5.7 x 5.5 cm. The anterior aspect is remarkable for a portion of esophagus (3.2 cm in length by 2.7 cm in diameter). 9:03 AM The supraglottic region is remarkable for a spicer-white lesion. Research Consultant sections submitted. [employer] SECTION CODE: A1, mucosa at piriform sinus; A2-A6, customer counter representative sections. AEN B: Other, midline suprasternal soft tissue or6: Consists of a segment of unoriented red-pink soft tissue measuring 2.5 x 2.0 x 1.2 cm. Specimen is serially sectioned to reveal a spicer-pink to spicer-white sligh tly fibrotic cut surface and is submitted entirely in casset miguel a B1-B3. DF Intraoperative A: 04/10/2022 [facility] AP LABS Evaluation Larynx, total laryngectomy with anterior esophagectomy or6: 9:03 AM Fibrosis and chronic inflammmation. AEN [employer] Biomarker N/A 04/10/2022 [facility] AP LABS Block(s) 9:03 AM [employer] Disclaimer "Some tests 04/10/2022 [facility] AP LABS reported here may 9:03 AM have been [employer] developed and performance characteristics determined by [facility] Pathology and Laboratory Medicine. These tests have not been specifically cleared or approved by the U.S. Food and Drug Administration. If applicable, controls were reviewed and showed appropriate reactivity." Specimen Anatomical Collection Method Collection Time Receive d Time (Source) Location / / Volume Laterality Tissue (Larynx) 04/05/2022 11:47 04/05/20 22 AM CDT 11:51 AM CDT Tissue (Other) 04/05/2022 11:53 2 AM CDT 12:57 PM CDT Ene Polk MD LAB PATHOLOGY ORDERABLES Performing Organization Address City/State/ZIP Code Phon e Number [facility] AP LABS [facility] [place] [address] [address] Potassium Level (04/04/2022 12:19 PM CDT) P athologist Signature Potassium Lvl 4.6 3.5 - 5.1 [facility] ER mEq/L Comment: Testing Performed at [facility] Lab [facility] Care Bldg, [address], [address], [place] [address] Specimen Anatomical Collection Method Collection Time Receive d Time (Source) Location / / Volume Laterality Blood 04/04/2022 12:19 04/04/2022 PM CDT 12:42 PM CDT Dulce Washington NP LAB BLOOD ORDERABLES Performing Organization Address City/State/ZIP Code Phon e Number [facility] [address] [place] [address] [address] COVID-19 (SARS-CoV-2) PCR-Asymptomatic [facility] (04/04/2022 11:55 AM CDT)Only the most recent of2 resultswithin the time period is included. [facility] Method Time Signature COVID19 (SARS Not Detected Not Detected UT CoV-2) [facility] Comment: This test is a qualitative reverse-trans [...] fact sheet for patients provided by the auto brake technician ( [employer]) can be rev iewed at: https://www.fda.gov/media/462099/downloa d. A fact sheet for Health Care providers is provided by the auto brake technician ([employer]) and can be reviewed at: https://www.fda.gov/media/124930/download Results must be interpreted within the c [...] were verified by the Microbiology Laboratory at [facility], CLIA Accreditation #: [id number] and CAP Accreditation #: [id number]. COVID19 SARS Source CARAMEL MAKER Swab SD MD [facility] COVID19 SARS Indication Pre-OR Procedure [facility] Specimen (Source) Anatomical Collection Method Collection Time Re ceived Time Location / / Volume Laterality Nasopharyngeal Swab 04/04/2022 11:55 11/0 06/2021 AM CDT 5:06 PM CDT Ene Polk MD MICROBIOLOGY - GENERAL ORDER YOVANI Performing Organization Address City/State/ZIP Code Phon e Number [facility] CANCER Unless otherwise noted, [place] [address] TOMS BROOK all lab tests performed by: Division of Pathology and Laboratory Medicine [facility] [facility] Glucose, Random (03/28/2022 2:11 PM CDT)Only the most recent of2 resultswithin the time period is included. athologist Signature Glucose Random 154 70 - 199 [facility] mg/dL CANCER [facility] BROOK Comment: Effective 12/29/15, the glucose reference intervals have been updated based on [place] [employer] guidelines (Standards of Medical Care [...] (Source) Location / / Volume Laterality Blood 03/28/2022 2:11 PM 2 2:39 CDT PM CDT Dulce Washington NP LAB BLOOD ORDERABLES Performing Organization Address City/[facility] Phon e Number [facility] CANCER Unless otherwise noted, [address] all lab tests performed by: Division of Pathology and Laboratory Medicine [address] [place] [address] Lynn TMP Interpretation Exception PreOp Expiration (03/28/2022 2:11 PM CDT) Component Value Ref Test Analysis Performed At [facility] Range Method Time Signature TMP Patient's pre-op ROMAN CRAWLEY Exception Type and Screen ANUJA shows no evidence of CANCER RBC CENTER alloantibody(ies). CLINICAL INFORMATION PROVIDED BY THE ANESTHESIOLOGISTS AND PATIENT WOULD ALLOW FOR THIS SAMPLE TO BE USED UP TO 30 DAYS FOR TYPE AND SCREEN FOR SURGERY ONLY. Comment: NICHOLE HUMPHREY, Dictated by: NICHOLE HUMPHREY, Dictated Date/Time: 03.29.2022 8:21 AM C DT Transcribed Date/Time: 03.29.2022 8:21 AM CDT Electronically Signed By: NICHOLE HUMPHREY, on 03.29.2022 8:21 AM C Specimen Anatomical Collection Method Collection Time Receive d Time (Source) Location / / Volume Laterality Blood 03/28/2022 2:11 PM 2 2:56 CDT PM CDT Dulce Washington NP BLOOD BANK TEST ORDERABLES Performing Organization Address City/[facility] Code Phon e Number [facility] CANCER Unless otherwise noted, [address] all lab tests performed by: Division of Pathology and Laboratory Medicine [address] [place] [address] TMP Interpretation Crossmatch (03/28/2022 2:11 PM CDT)Only the most recent of4 resultswithin the time period is included. [facility] Method Time Signature TMP XM Interp RBC units ROMAN CRAWLEY crossmatched for AKIAK transfusion CANCER [facility] acceptable. Comment: KHANG KARIMI MD - [id number] Dictated by: KHANG KARIMI MD - [id number] Dictated Date/Time: 04.05.2022 12:45 PM CDT Transcribed Date/Time: 04.05.2022 12:45 PM CDT Electronically Signed By: MD Carri WRIGHT [id number] on 04.05.2022 12:45 PM Specimen Anatomical Collection Method Collection Time Receive d Time (Source) Location / / Volume Laterality Blood 03/28/2022 2:11 PM 2 2:56 CDT PM CDT Dulce Washington NP BLOOD BANK TEST ORDERABLES Performing Organization Address City/[facility] Phon e Number [facility] Unless otherwise noted, [address] all lab tests performed by: Division of Pathology and Laboratory Medicine [address] [place] [address] Hemoglobin A1c (03/28/2022 2:11 PM CDT)Only the most recent of2 resultswithin the time period is included. athologist Signature A1C 5.3 4.3 - 5.6 % [facility] Comment: HbA1c values >=6.5% are diagnostic of di abetes mellitus. Diagnosis should be confirmed by repeat testing. Therapeutic Action suggested: >8.0% HbA1 c; Goal of therapy: <7.0% HbA1c Specimen Anatomical Collection Method Collection Time Receive d Time (Source) Location / / Volume Laterality Blood 03/28/2022 2:11 PM 2 2:36 CDT PM CDT Dulce Washington NP LAB BLOOD ORDERABLES Performing Organization Address City/[facility] Phon e Number [facility] Unless otherwise noted, [address] all lab tests performed by: Division of Pathology and Laboratory Medicine [address] [place] [address] POC A1C (03/28/2022 11:07 AM CDT) athologist Signature POC A1C 5.5 4.3 - 5.6 % POC [facility] Comment: Method description: All results are ronald ured using boronate affinity chromatography for the determination of the percentage of HbA1c in human whole blood. The blood sample is automatically diluted and m ixed with a solution that releases hemog lobin from the erythrocytes. The cis-diols of the g lycated hemoglobin in the patient sample binds with the reagent, a blue boronic acid conjugate. By measuring the reflectance in the sample, the blue (glycated hemoglobin) and the red (total hemoglobin) color intensities are evaluated. The ratio bet ween the blue and red color intensities is proportional to the percentage of HbA1c in the sample. Performing Lab [facility] POC TELCO R Comment: [facility], [address], [place] [address]; Lab Direct or: Loida Chavez MD Specimen Anatomical Collection Method Collection Time Receive d Time (Source) Location / / Volume Laterality Blood 03/28/2022 11:07 03/28/2022 AM CDT 11:07 AM CDT Paul OSEGUERA POCT ORDERABLES - DEVICE Performing Organization Address City/State/ZIP Code Phon e Number POC [facility] CT Soft Tissue Neck with Contrast (03/28/2022 7:31 AM CDT)Only the most recent of7 resultswithin the time period is included. Anatomical Region Laterality Modality Neck Computed Tomography Specimen (Source) Anatomical Collection Method Collection Time Re ceived Time Location / / Volume Laterality 03/28/2022 9:28 AM CDT Impressions 03/28/2022 9:39 AM CDT Stable complex posttreatment changes with no evidence for recurrence. NIRADS SCORE: 1. Primary: NIRADS 1: Expected post-tr eatment changes without evidence of recurrence, routine surveillance 2. Nodes: NIRADS 1: No evidence of rec urrence; routine surveillance NI-RADS (Neck Imaging Reporting & Data S ystem) is a standardized reporting system for follow-up of treated head and neck cancers. 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 Findings: Primary Site: Once again, there is extensive posttreat ment related edema involving the supraglottic and laryngeal soft tissues. A small ulceration is noted along the surface of the epiglottis (116 series 2) and the a ryepiglottic folds are markedly edematou s. Destructive erosive changes are again noted involving the arytenoid and cricoid cartilage. These posttreatment changes extend into the retrocricoid hypopharynx . With comparison to the study of 022, these complex changes are stable. There is no evidence of nodular thickeni ng or enhancement at the primary site or elsewhere in the upper aerodigestive tract to suggest recurrent tumor. Post treatment changes are stable. Lymph Nodes: There is no adenopathy. Distant Sites: Diffuse emphysematous changes are noted in the visualized lungs. No suspicious pulmonary nodules are noted in the visualized portion of upper lungs. Other: Tracheostomy is in place. Procedure Note Mj Gordillo MD - 03/28/2022Forma tting of this note might be different from the original. 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 Findings: Primary Site: Once again, there is extensive posttreat ment related edema involving the supraglottic and laryngeal soft tissues. A small ulceration is noted along the surface of the epiglottis (116 series 2) and the aryepiglottic folds are markedly edematous. Destructive eros sheron changes are again noted involving the arytenoid and cricoid cartilage. These posttreatment changes extend into the retrocricoid hypopharynx. With comparison to the study of 02/01/2022, these complex changes are sta ble. There is no evidence of nodular thickeni ng or enhancement at the primary site or elsewhere in the upper aerodigestive tract to suggest recurrent tumor. Post treatment changes are stable. Lymph Nodes: There is no adenopathy. Distant Sites: Diffuse emphysematous changes are noted in the visualized lungs. No suspicious pulmonary nodules are noted in the visualized portion of upper lungs. Other: Tracheostomy is in place. IMPRESSION: Stable complex posttreatment changes wit h no evidence for recurrence. NIRADS SCORE: 1. Primary: NIRADS 1: Expected post-greg tment changes without evidence of recurrence, routine surveillance 2. Nodes: NIRADS 1: No evidence of recur rence; routine surveillance NI-RADS (Neck Imaging Reporting & Data S te) is a standardized reporting system for follow-up of treated head and neck cancers. For more information: https://www.acr.org/-/media/ACR/Files/RADS/NI-RADS/NWJK-qe-QHI-Surveillance-Lege nd.txt ACTIONABLE FINDINGS: Ene Polk MD IM CT ORDERABLES POC Creatinine (03/28/2022 7:20 AM CDT)Only the most recent of2 resultswithin the time period is included. athologist Signature POC Crea 0.6 0.6 - 1.3 [facility]OC [facility] mg/dL Comment: [...] analyte concentration by an electrochemical assay. POC EGFR 102 >=60 mL/min/1.73 sq. m POC [facility] Comment: The eGFRcr is calculated with the 2020 KD-EPI creatinine equation using creatinine, patient's age, and sex for adults 18 years of age and older. Other factors, especially muscle mass, may affect accuracy and need to be considered. According to the Kidney Disease: Improvi ng Global Outcomes (KDIGO) CKD Work Group 2012 Clinical Practice Guideline, chronic kidney disease (CKD) is defined as the abnormalities of kidney structure or function, present for more than 3 months, with implications for health. CKD should be c lassified by cause, GFR category, and albuminuria category. KDIGO guidelines provide the following GFR categories Stage Description GFR mL/min/1.73 m2 G1* Normal or high >= 90 G2* Mildly decreased 60-89 G3a Mildly to moderately decreased 45-59 G3b Moderately to severely decreased 30- 44 G4 Severely decreased 15-29 G5 Kidney failure <15 *In the absence of evidence of kidney da mage, neither G1 nor G2 fulfill criteria for CKD. POC Clean Dev Yes POC [facility] Performing Lab [facility] [place] POC [facility] Comment: Diagnostic Imaging [facility] [place], [address] [place] [address]; Point of Care Washer Hand: Brooke Owens MD Specimen Anatomical Collection Method Collection Time Receive d Time (Source) Location / / Volume Laterality Blood 03/28/2022 7:20 AM 7:20 CDT AM CDT Ene Polk MD POCT ORDERABLES - DEVICE Performing Organization Address City/State/ZIP Code Phon e Number [facility]OC [facility] X-ray Chest 2 Views (02/24/2022 11:26 AM CDT)Only the most recent of3 results within the time period is included. Anatomical Region Laterality Modality Chest Digital Radiography Specimen (Source) Anatomical Collection Method Collection Time Re ceived Time Location / / Volume Laterality 02/24/2022 11:29 AM CDT Impressions 02/24/2022 11:32 AM CDT No evidence of acute complications. Narrative 02/24/2022 11:32 AM CDT FULL RESULT: Examination: XR CHEST 2 VW, 02/24/2022 11 :26 AM Clinical History: Cellulitis of neck Cough at rest <Cough; Acute> Indication: Cough, COVID-19 Not Suspecte d Comparison: December 28, 2021 Technique: Posteroanterior, lateral and dual-energy radiographs of the chest. Findings: Tracheostomy tube with its distal tip 9 cm above the keely. No evidence of focal lung opacities. There is no pleural effusion or pneumothorax. There is no mediastinal or hilar adenopathy. Cardiac silhouette is normal. Procedure Note Olegario Schmidt MD - 02/24/2022Form atting of this note might be different from the original. FULL RESULT: Examination: XR CHEST 2 VW, 02/24/2022 11 :26 AM Clinical History: Cellulitis of neck Cough at rest <Cough; Acute> Indication: Cough, COVID-19 Not Suspecte d Comparison: December 28, 2021 Technique: Posteroanterior, lateral and dual-energy radiographs of the chest. Findings: Tracheostomy tube with its distal tip 9 cm above the keely. No evidence of focal lung opacities. There is no pleural effusion or pneumothorax. There is no mediastinal or hilar adenopathy. Cardiac silhouette is normal. IMPRESSION: No evidence of acute complications. Deshawn Ahuja MD IMG DIAGNOSTIC IMAGING ORDER YOVANI (ABNORMAL) Lower Respiratory Culture w/Gram Stain (02/23/2022 12:28 PM CDT)Only the most recent of4 resultswithin the time period is included. Component Value Ref Test Analysis Performed At [facility] gist Range Method Time Signature Final Report Few Pseudomonas aeruginosa ROMAN CRAWLEY ... ANUJA Many Haemophilus parainfluenzae CANCER ... CENTER Normal site shayna present. (A) Path Review The results have been review ed and electronically signed by Pathologist: ROMAN BRADY MD #[id number] A NDERSON (A) CANCER CENTER Gram Stain No WBC's seen. ROMAN CRAWLEY Report Many Gram Positive Cocci JANEE SON Few Gram Positive Rods CANCER Few Gram Negative [facility] CENTER (A) Organism Pseudomonas ROMAN CRAWLEY aeruginosa (A) ANUJA CANCER [facility] Specimen Anatomical Collection Method Collection Time Receive d Time (Source) Location / / Volume Laterality Tracheal 02/23/2022 12:28 02/23/2022 2:20 Aspirate PM CDT PM CDT Organism Antibiotic Method Susceptibility Pseudomonas *STEVE expressed in MINIMUM INHIBITORY STEVE: MINT aeruginosa mcg/mL CONCENTRATION Pseudomonas Piperacillin/Tazobacta MINIMUM INHIBITORY <=4: S usceptible aeruginosa m CONCENTRATION Pseudomonas Ceftazidime MINIMUM INHIBITORY 2: Susceptibl e aeruginosa CONCENTRATION Pseudomonas Cefepime MINIMUM INHIBITORY 4: Susceptibl e aeruginosa CONCENTRATION Pseudomonas Imipenem MINIMUM INHIBITORY <=0.25: Susce ptible aeruginosa CONCENTRATION Pseudomonas Meropenem MINIMUM INHIBITORY 0.5: Suscepti ble aeruginosa CONCENTRATION Pseudomonas Amikacin MINIMUM INHIBITORY <=2: Suscepti ble aeruginosa CONCENTRATION Pseudomonas Tobramycin MINIMUM INHIBITORY <=1: Suscepti ble aeruginosa CONCENTRATION Pseudomonas Ciprofloxacin MINIMUM INHIBITORY <=0.25: Susce ptible aeruginosa CONCENTRATION Pseudomonas Levofloxacin MINIMUM INHIBITORY 2: Intermedia te aeruginosa CONCENTRATION Deshawn Ahuja MD MICROBIOLOGY - GENERAL ORDER YOVANI Performing Organization Address City/State/ZIP Code Phon e Number [facility] Unless otherwise noted, [address] all lab tests performed by: Division of Pathology and Laboratory Medicine [facility] [employer] 6 minute walk test (01/20/2022 7:55 AM CDT) Specimen (Source) Anatomical Collection Method Collection Time Re ceived Time Location / / Volume Laterality 01/20/2022 7:28 AM CDT Narrative This result has an attachment that is no t available. Liliana Martin NP PFT ORDERABLES Performing Organization Address City/[facility]/ZIP Code Phon e Number SENTRYSUITE (ABNORMAL) Sed Rate (01/12/2022 10:00 AM CDT) P athologist Signature Sed Rate 20 (H) 0 - 9 mm/hr [facility] Specimen Anatomical Collection Method Collection Time Receive d Time (Source) Location / / Volume Laterality Blood 01/12/2022 10:00 01/12/2022 AM CDT 12:11 PM CDT Deshawn Ahuja MD LAB BLOOD ORDERABLES Performing Organization Address City/State/ZIP Code Phon e Number [facility] CANCER Unless otherwise noted, [address] all lab tests performed by: Division of Pathology and Laboratory Medicine [address] [employer] CRP (01/12/2022 10:00 AM CDT) P athologist Signature CRP 1.17 mg/L [facility] CANCER CENTER Comment: Reference ranges for HS CRP assay [...] Organization Address City/State/ZIP Code Phon e Number [facility] CANCER Unless otherwise noted, [place] [address] TOMS BROOK all lab tests performed by: Division of Pathology and Laboratory Medicine [facility] Modified Barium Swallow w Speech (12/30/2021 10:26 [...] speech pathology note for furth er details. Ene Polk MD IMG FLUOROSCOPY ORDERABLES XR Chest 2 View Post Implant [...] Ahuja MD IMG DIAGNOSTIC IMAGING ORDER YOVANI (ABNORMAL) Urinalysis w/Microscopic if Indicated (11/17/2021 9:40 PM CDT)Only the most recent of2 resultswithin the time period is included. [facility] gist Method Time Signature UA Color Straw Straw-Yel [facility] UA Appear Clear Clear [facility] UA Glucose NEG NEG mg/dL [facility] UA Bili NEG NEG [facility] UA Ketones NEG NEG mg/dL [facility] UA Spec Grav 1.049 (H) 1.003 - SD 1.035 [facility] UA Blood NEG NEG [facility] UA pH 7.0 5.0 - 9.0 [facility] UA Protein NEG NEG mg/dL [facility] UA Urobilinogen NEG NEG [facility] UA Nitrite NEG NEG [facility] UA Leuk Est NEG NEG [facility] UA Comment See Comment [facility] Comment: No microscopic exam performed, physiochemical findings are negative Specimen Anatomical Collection Method Collection Time Receive d Time (Source) Location / / Volume Laterality Urine 11/17/2021 9:40 PM 9:48 CDT PM CDT Kodi Nicole MD URINE ORDERABLES Performing Organization Address City/State/ZIP Code Phon e Number [facility] CANCER Unless otherwise noted, [address] all lab tests performed by: Division of Pathology and Laboratory Medicine [address] [facility] Urine Culture (11/17/2021 9:40 PM CDT)Only the most recent of2 resultswithin the time period is included. Component Value Ref Test Analysis Performed At Patholo gist Range Method Time Signature Final Report No growth [facility] Path Review - The results have been review ed and electronically signed by Pathologist: [place] Urine BERTA BRADY MD #[id number] [facility] Specimen Anatomical Collection Method Collection Time Receive d Time (Source) Location / / Volume Laterality Urine, Clean 11/17/2021 9:40 PM 2 Catch CDT 11:43 PM CDT Kodi Nicole MD MICROBIOLOGY - GENERAL ORDER YOVANI Performing Organization Address City/[facility] Phon e Number [facility] Unless otherwise noted, [address] all lab tests performed by: Division of Pathology and Laboratory Medicine [address] (ABNORMAL) ABG (11/17/2021 9:33 PM CDT)Only the most recent of5 resultswithin the time period is included. P athologist Signature pH Art 7.41 7.35 - 7.45 [facility] Comment: Results are corrected for a bod y temp of 37C. pCO2 Art 51.0 (H) 35.0 - 48.0 mmHg SD MD AKINS [facility] pO2 Art 31 (C) 83 - 108 mmHg [address] [facility] HCO3 Art 32 (H) 21 - 28 mmol/L [facility] Base Excess Art 6 (H) -2 - 3 mmol/L SD MD VIEIRA KAVON [facility] O2 Sat Art 58 (L) 95 - 99 % [facility] CAN ER CENTER Specimen Anatomical Collection Method Collection Time Receive d Time (Source) Location / / Volume Laterality Blood 11/17/2021 9:33 PM 2 9:39 CDT PM CDT Hilario Pardo MD LAB BLOOD ORDERABLES Performing Organization Address City/[facility] Phon e Number [facility] Unless otherwise noted, [address] all lab tests performed by: Division of Pathology and Laboratory Medicine [address] [facility] [address] Chest Pulmonary Embolism with Contrast (11/17/2021 [...] The appearan ce is more similar to February now. This may represent resolving atelectasis aspiration, [...] Clean Dev Yes POC [facility] Performing Lab [facility] POC TELCO R Comment: [facility], [facility] [place] [address]; Lab Direct or: Loida Chavez MD Specimen Anatomical Collection Method Collection Time Receive d Time (Source) Location / / Volume Laterality Blood 11/17/2021 2:40 PM 2:40 CDT PM CDT Hilario Pardo MD POCT ORDERABLES - DEVICE Performing Organization Address City/State/ZIP Code Phon e Number POC [facility] COVID-19 (SARS-CoV-2)Asymptomatic-LT (11/17/2021 2:37 PM CDT)Only the most recent of6 resultswithin the time period is included. [facility] Hospital Method Time Signature COVID19 Not Detected Not Detected [place] (SARS-CoV-2) [facility] COVID19 SARS Pre-OR [place] Indication Procedure [facility] Covid 19 See Note [place] MD Comment [facility] Comment: The rufino SARS-CoV-2 nucleic acid test [...] fact sheet for patients provided by the auto brake technician ([employer]) can be reviewed at: https://www.fda.gov/media/246769/heike crawford A fact sheet for Health Care providers is provided by the auto brake technician ([employer]) and can be reviewed at: https://www.fda.gov/media/305583/download Results must be interpreted within the c [...] This assay has been authorized by the [facility] for use only under Emergency Use Authorization (EUA) in laboratories that have been CLIA-certified to perform moderate-complexity and high-complexity tests. The Microbiology Laboratory at [facility], CLIA Accreditation #[id number] a [facility] Accreditation #[id number], verified the performance characteristics of this assay. Internal controls are used to monitor all stages of the test process. Specimen (Source) Anatomical Collection Method Collection Time Re ceived Time Location / / Volume Laterality Nasopharyngeal Swab 11/17/2021 2:37 11/17 PM CDT 2:50 PM CDT Kodi Nicole MD MICROBIOLOGY - GENERAL ORDER YOVANI Performing Organization Address City/State/ZIP Code Phon e Number [facility] CANCER Unless otherwise noted, [place] [address] TOMS BROOK all lab tests performed by: Division of Pathology and Laboratory Medicine [address] [place] [address] Procalcitonin (PCT) (11/17/2021 2:37 PM CDT)Only the most recent of2 results within the time period is included. athologist Signature Procalcitonin 0.07 <=0.08 [facility] ng/mL CANCER CENTER Comment: Procalcitonin > 2.00 [...] with extended dilution as it exceeds the auto brake technician's recommended limit. Caution should be exercised when interpreting such values and done in conjunction with clinical context. Specimen Anatomical Collection Method Collection Time Receive d Time (Source) Location / / Volume Laterality Blood 11/17/2021 2:37 PM 2 2:47 CDT PM CDT Kodi Nicole MD LAB BLOOD ORDERABLES Performing Organization Address City/[facility] Phon e Number [facility] CANCER Unless otherwise noted, [address] all lab tests performed by: Division of Pathology and Laboratory Medicine [facility] (ABNORMAL) Cardiac Panel (11/17/2021 2:37 PM CDT)Only the most recent of3 resultswithin the time period is included. P athologist Signature CK 50 39 - 308 [facility] U/L [facility] CK MB <2.0 <=10.4 [facility] ng/mL [facility] Troponin T 36 (H) <=18 ng/L [facility] Comment: < 19 ng/L Suggest retest [...] MD LAB BLOOD ORDERABLES Performing Organization Address [facility] Phon e Number [facility] CANCER Unless otherwise noted, [address] all lab tests performed by: Division of Pathology and Laboratory Medicine [facility] Blood Culture (11/17/2021 2:37 PM CDT)Only the most recent of3 resultswithin the time period is included. Component Value Ref Test Analysis Performed At Patholo gist Range Method Time Signature Final Report No growth [facility] Path Review - Culture yield may be affecte d by sample quality, prior treatment, and transportation conditions. SD Bottle/Isolat ... ANUJA or The results have been reviewed and electronically signed b y Pathologist: CANCER Amaury Sinha MD, PhD #[id number] C ENTER Specimen Anatomical Collection Method Collection Time Receive d Time (Source) Location / / Volume Laterality Blood (Periph 11/17/2021 2:37 PM 11/18/19 22 3:41 Venous Right) CDT PM CDT Comment: right Narrative [facility] - 2 4:11 AM CDT Short draw may invalidate quantitative b lood culture results. Kodi Nicole MD MICROBIOLOGY - GENERAL ORDER YOVANI Performing Organization Address City/[facility] Code Phon e Number [facility] CANCER Unless otherwise noted, [address] all lab tests performed by: Division of Pathology and Laboratory Medicine [address] [place] [address] Isabell (ABNORMAL) Prothrombin Time with INR (11/17/2021 2:37 PM CDT)Only the most recent of8 resultswithin the time period is included. P athologist Signature PT 14.2 (H) 11.5 - 13.9 [facility](s) [facility] INR 1.18 (H) 0.90 - 1.10 [facility] Specimen Anatomical Collection Method Collection Time Receive d Time (Source) Location / / Volume Laterality Blood 11/17/2021 2:37 PM 2 2:44 CDT PM CDT Kodi Nicole MD LAB BLOOD ORDERABLES Performing Organization Address City/[facility] Code Phon e Number [facility] CANCER Unless otherwise noted, [address] all lab tests performed by: Division of Pathology and Laboratory Medicine [address] [place] [address] Lynn Sodium Level (11/10/2021 2:27 PM CDT) P athologist Signature Sodium Lvl 138 136 - 145 [facility] mEq/L [facility] CENTER Specimen Anatomical Collection Method Collection Time Receive d Time (Source) Location / / Volume Laterality Blood 11/10/2021 2:27 PM 2 2:47 CDT PM CDT Ene Polk MD LAB BLOOD ORDERABLES Performing Organization Address City/[facility] Phon e Number [facility] CANCER Unless otherwise noted, [address] all lab tests performed by: Division of Pathology and Laboratory Medicine [facility] Flexible nasopharyngeal laryngoscopy (11/07/2021 6:14 PM CDT) Rebecca Mark CCC-SLP - 6:14 PM CDT JAMIE Camarena 11/07/2021 6:30 PM Flexible nasopharyngeal laryngoscopy Date/Time: 11/07/2021 6:14 PM Provider Information: Performed by: BALDOMERO Camarena P Authorized by: OUMAR Staples Nurse Practitioner Home Assessments present?: no Indications: Indications: videostroboscopy Pre-Procedure Note: per diem interpreter: no Pre-procedure patient condition: coher ent [...] (11/07/2021 3:14 PM CDT) Analysis Performed At [facility] Time Signature FVC (L) pre 2.541 (L) [...] Mancia MD PFT ORDERABLES Performing Organization Address City/State/ZIP Code Phon e Number [place] 6 min walk test (11/07/2021 3:14 PM CDT) Specimen (Source) Anatomical Location Collection Method / Collectio n Time Received Time / Laterality Volume Narrative This result has an attachment that is no t available. Kong Prieto MD PFT ORDERABLES Performing Organization Address City/State/ZIP Code Phon e Number [place] ABORh Manual (10/27/2021 5:10 AM CDT)Only the most recent of5 resultswithin the time period is included. P athologist Signature ABORh Manual O NEG [facility] Specimen Anatomical Collection Method Collection Time Receive d Time (Source) Location / / Volume Laterality Blood 10/27/2021 5:10 AM 2 5:31 CDT AM CDT Cintia Mancia MD BLOOD BANK TEST ORDERABLES Performing Organization Address City/[facility] Phon e Number [facility] CANCER Unless otherwise noted, [address] all lab tests performed by: Division of Pathology and Laboratory Medicine [address] [place] [address] Calcium Ionized, Venous (10/27/2021 5:10 AM CDT)Only the most recent of15 resultswithin the time period is included. athologist [facility] V Ion Ca 1.29 1.15 - 1.29 [facility] mmol/L [facility] Specimen Anatomical Collection Method Collection Time Receive d Time (Source) Location / / Volume Laterality Blood 10/27/2021 5:10 AM 2 5:12 CDT AM CDT Cintia Mancia MD LAB BLOOD ORDERABLES Performing Organization Address City/[facility] Phon e Number [facility] CANCER Unless otherwise noted, [address] all lab tests performed by: Division of Pathology and Laboratory Medicine [address] [place] [address] MRSA Screening Culture (10/22/2021 5:27 PM CDT)Only the most recent of2 results within the time period is included. Component Value Ref Test Analysis Performed At [facility] gist Range Method Time Signature Final Report No Methicillin [facility] Staphylococcus CANCER aureus isolated. CENTER Path Review The results have been review ed and electronically signed by Pathologist: SD MD BERTA BRADY MD #[id number] [facility] Specimen Anatomical Collection Method Collection Time Receive d Time (Source) Location / / Volume Laterality Nasal 10/22/2021 5:27 PM 2 6:05 CDT PM CDT Cintia Mancia MD MICROBIOLOGY - GENERAL ORDER YOVANI Performing Organization Address City/[facility] Phon e Number [facility] CANCER Unless otherwise noted, [address] all lab tests performed by: Division of Pathology and Laboratory Medicine [address] PETCT Subsequent Treatment Strategy (10/21/2021 8:59 AM [...] follow-up. Cintia Mancia MD IMG PETCT ORDERABLES TMP Exception (10/20/2021 2:36 PM CDT)Only the most recent of2 resultswithin the time period is included. Component Value Ref Test Analysis Performed At [facility] gist Range Method Time Signature TMP Exception Patient O Rh Neg ROMAN CRAWLEY Interp transfused with O ANUJA Rh Pos blood due CANCER to temporary CENTER unavailability of Rh compatible units. Comment: MD Carri ALLEN [id number] Dictated by: MD Carri ALLEN [id number] Dictated Date/Time: 10.20.2021 16:00 PM CDT Transcribed Date/Time: 10.20.2021 16:00 PM CDT Electronically Signed By: MD Carri ALLEN [id number] on 10.20.2021 16:00 PM Specimen Anatomical Collection Method Collection Time Receive d Time (Source) Location / / Volume Laterality Blood 10/20/2021 2:36 PM 2 2:36 CDT PM CDT Nichole Murphy MD BLOOD BANK TE ST ORDERABLES Performing Organization Address City/State/ZIP Code Phon e Number [place] [facility] Unless otherwise noted, [address] all lab tests performed by: Division of Pathology and Laboratory Medicine [address] [place] [address] RBC Product Ready for Door Glass Installer (10/20/2021 1:00 PM CDT)Only the most recent of3 resultswithin the time period is included. Analysis Performed At [facility] logist Time Signature PRBC Product B2 Blood ROMAN CRAWLEY Ready for Pick Bank [facility] Comment: Product is ready for medicinal plant picker on October 20, 2021 14:33:17 CDT. Specimen Anatomical Collection Method Collection Time Receive d Time (Source) Location / / Volume Laterality Blood 10/20/2021 1:00 PM 2 1:00 CDT PM CDT Cintia Mancia MD BLOOD BANK PRODUCT ORDERABLE S Performing Organization Address City/State/ZIP Code Phon e Number [facility] CANCER Unless otherwise noted, [place] [address] CENTER all lab tests performed by: Division of Pathology and Laboratory Medicine [address] X-ray Chest 1 View Portable (10/19/2021 5:15 [...] PM CDT Examination: [facility] 9:20 PM Clinical History: Primary squamous [...] from the original. Examination: CT ABDOMEN PELVIS [facility], 10/18/2021 9:20 PM Clinical History: Primary squamous [...] Signature V Lactate 0.5 0.5 - 1.6 [place] mmol/L CANCER CENTER Specimen Anatomical Collection Method Collection Time Receive d Time (Source) Location / / Volume Laterality Blood 10/18/2021 3:57 PM 2 4:11 CDT PM CDT Monika Mandujano APN LAB BLOOD ORDERABLES Performing Organization Address City/State/[facility] Code Phon e Number [facility] CANCER Unless otherwise noted, [place] [address] CENTER all lab tests performed by: Division of Pathology and Laboratory Medicine [address] [place] [address] VRE Culture (10/18/2021 3:57 PM CDT)Only the most recent of2 resultswithin the time period is included. Component Value Ref Test [facility] Time Signature Final Report No Vancomycin SD resistant ANUJA Enterococci CANCER isolated CENTER Path Review - VRE absent or below limits of detection. SD VRE ... ANUJA Culture yield may be affecte d by sample quality, prior treatment, and transportation conditions. CANCER ... CENTER The results have been reviewed and electronically signed by Pathologist: Amaury Sinha MD, PhD #[id number] Specimen Anatomical Collection Method Collection Time Receive d Time (Source) Location / / Volume Laterality Rectal Swab 10/18/2021 3:57 PM 2 7:07 CDT PM CDT Devendra OSEGUERA MICROBIOLOGY - GENERAL ORDER YOVANI Performing Organization Address City/State/ZIP Code Phon e Number [facility] CANCER Unless otherwise noted, [place] [address] CENTER all lab tests performed by: Division of Pathology and Laboratory Medicine [address] Echocardiogram 2D Complete (10/18/2021 3:16 PM CDT) [...] imaginD volumes were not performed in this [facility]. Cardiac Mechanics/Speckle Tracking Imagi ng: Normal global [...] pericardial effusion. Preliminary Reviewer Preliminary Interpretation: Kellee hutner MD. MMode/2D Measurements IVSd: 1.0 cm LVIDd: [...] Normal = 100 Normal global longitudinal peak sys tolic value. X - Cannot 1 - Normal 2 - 3 - Akinetic 4 - Dyskinetic Interpret Hypokinetic 5 - Aneurysmal 3D imaginD volumes were not performed in this st [facility]y. Cardiac Mechanics/Speckle Tracking Imagi ng: Normal global [...] % EDV (MOD-bp) Index: 43.5 ml/m2 ESV ( MOD-bp) Index: 16.6 ml/m2 RWT: 0.53 cm TAPSE (>1.6): 2.5 cm Doppler Measurements MV E max enid: 90.0 cm/sec MV V2 max: 114.7 cm/sec MV A max enid: 98.2 cm/sec MV max PG : 5.3 mmHg MV E/A: 0.92 MV V2 mean: [...] cm2 LV V1 max P.9 mmHg SV(LVOT): 73. 1 ml LV V1 mean P.3 mmHg LV V1 max: 130.9 cm/sec LV V1 mean: 84.1 cm/sec LV V1 VTI: 22.4 cm Med Peak E' Enid: 6.3 cm/sec Lat Peak E' Enid: 7.1 cm/sec TR max enid: 257.4 cm/sec RAP systole: 3.0 mmHg TR max P.5 mmHg RVSP(TR): 29.5 mmHg MALA Index (I,D): 1.2 MALA Index (V,D) : 1.1 Dimensionless Index: 0.56 E/e' (avg) : 13.4 E/e' (lat): 12.7 E/e' (sept): 14.2 62 Cintia Mancia MD CV ECHO ORDERABLES Performing Organization Address City/State/ZIP Code Phon e Number ISC[facility] (ABNORMAL) POC ABG (10/18/2021 1:19 PM CDT)Only the most recent of2 results within the time period is included. P athologist Signature POC AB pH 7.38 7.35 - 7.45 POC [facility] Comment: The i-STAT is an analyzer used for in vi tro quantification of various analytes in whole blood. The device uses a single disposable cartridge which contains microfabricated sensors, a calibration solutio n, fluidics system, and a waste chamber. [...] Clean Dev Yes POC [facility] Performing Lab [facility] POC TELCO R Comment: [facility], [address] [place] [id number]; Lab Direct or: Loida Chavez MD Specimen [...] time period is included. athologist Signature POC Critical See Note POC [...] Phon e Number POC [facility] (ABNORMAL) Urinalysis with Microscopic (10/15/2021 8:23 PM CDT) athologist Signature UA WBC <1 0 - 2 /HPF [facility] UA RBC 1 0 - 2 /HPF [facility] UA Mucous NOT SEEN Not SD Seen-Trace [facility] UA Bacteria OCC (A) NOT SEEN [facility] UA Squam Epi OCC None-Occas [facility] UA Amorph Helene 2+ (A) NOT SEEN [facility] Specimen Anatomical Collection Method Collection Time Receive d Time (Source) Location / / Volume Laterality Urine 10/15/2021 8:23 PM 2 8:31 CDT PM CDT Narrative [facility] - 2 8:59 PM CDT Some reporting parameters within the Urinalysis test have changed due to the implementation of new in strumentation in the [facility], allowi ng greater sensitivity of measurement. Urinalysis results reported by the [facility] using existing instrumentation, as well as Urinalysis t esting performed manually or by backup methodology at the [facility] will remain relatively unchanged. New reporting parameters and units will now be reported for all campuses. Osman Villalobos NP URINE ORDERABLES Performing Organization Address City/State/ZIP Code Phon e Number [facility] CANCER Unless otherwise noted, [place] [address] TOMS BROOK all lab tests performed by: Division of Pathology and Laboratory Medicine [address] Fibrinogen (10/15/2021 2:07 AM CDT) athologist Signature Fibrinogen 307 214 - 503 [facility] mg/dL [facility] Specimen Anatomical Collection Method Collection Time Receive d Time (Source) Location / / Volume Laterality Blood 10/15/2021 2:07 AM 2 2:15 CDT AM CDT Osman Hoytmadonna CARAMEL MAKER LAB BLOOD ORDERABLES Performing Organization Address City/State/ZIP Code Phon e Number [facility] CANCER Unless otherwise noted, [address] all lab tests performed by: Division of Pathology and Laboratory Medicine [address] (ABNORMAL) Triiodothyronine (10/15/2021 2:07 AM CDT) P athologist Signature T3 Total 72 (L) 80 - 200 [facility] ng/dL [facility] Specimen Anatomical Collection Method Collection Time Receive d Time (Source) Location / / Volume Laterality Blood 10/15/2021 2:07 AM 2 2:18 CDT AM CDT Osman Hoytmadonna CARAMEL MAKER LAB BLOOD ORDERABLES Performing Organization Address City/[facility]/ZIP Code Phon e Number [facility] CANCER Unless otherwise noted, [address] all lab tests performed by: Division of Pathology and Laboratory Medicine [address] Lipase Level (10/15/2021 2:07 AM CDT) athologist Signature Lipase Lvl 20 13 - 60 U/L [facility] Specimen Anatomical Collection Method Collection Time Receive d Time (Source) Location / / Volume Laterality Blood 10/15/2021 2:07 AM 2 2:18 CDT AM CDT Osman Hoytmadonna CARAMEL MAKER LAB BLOOD ORDERABLES Performing Organization Address City/[facility]/ZIP Code Phon e Number [facility] Unless otherwise noted, [address] all lab tests performed by: Division of Pathology and Laboratory Medicine [address] (ABNORMAL) Lactate dehydrogenase (10/15/2021 2:07 AM CDT) athologist Signature LDH 232 (H) 135 - 225 [facility] U/L [facility] Comment: Results greater than 1651 U/L m [...] 2 2:17 CDT AM CDT Osman Hoytantonio CARAMEL MAKER LAB BLOOD ORDERABLES Performing Organization Address City/State/ZIP Code Phon e Number [facility] CANCER Unless otherwise noted, [address] all lab tests performed by: Division of Pathology and Laboratory Medicine [facility] Amylase Level (10/15/2021 2:07 AM CDT) athologist Signature Amylase Lvl 28 28 - 100 [facility] U/L CANCER CENTER Specimen Anatomical Collection Method Collection Time Receive d Time (Source) Location / / Volume Laterality Blood 10/15/2021 2:07 AM 2 2:18 CDT AM CDT Osman Hoytantoniome CARAMEL MAKER LAB BLOOD ORDERABLES Performing Organization Address City/[facility]/ZIP Code Phon e Number [facility] CANCER Unless otherwise noted, [address] all lab tests performed by: Division of Pathology and Laboratory Medicine [facility] OSI Chest (10/14/2021 9:45 AM CDT) Specimen (Source) Anatomical Location Collection Method / Collectio n Time Received Time / Laterality Volume Narrative Systemgenerated, Documentation - 022 9:45 AM CDT Study acquired at another institution. For comparison only. No Anuja originated interpretation requested or a vailable. Amber [...] of metastatic disease in the chest. Alexandra STILES CT ORDERABLES XR Abdomen 1 View Portable [...] of larynx Indication: Other:, check [facility] ent Comparison: 07/08/2021 Technique: XR ABDOMEN [...] Time At Signature Submitted Iron deficiency 08/31/2021 [facility] Clinical anemia, not 4:40 PM History otherwise CDT specified [D50.9] Diagnosis A: Duodenum, biopsy: 08/31/2021 [facility] ABS Electronically Duodenal mucosa with no diagnostic abnormality. 4:40 PM signed by CDT Lorena Miranda B: Stomach, gastric antrum, biopsy: DO Aby on Antral and transitional mucosa with reactive gastropathy. 08/31/2021 at No Helicobacter organisms (H&E stain) or intestinal metaplas ia identified. 4:40 PM C: Stomach, gastric body nodularity, biopsy: Fundic gland polyp. D: Colon, hepatic flexure, less than 5 mm sessile polyp, bio psy: Tubular adenoma. Gross A: 08/31/2021 [facility] Description Duodenum, duodenum: [...] in D1. ET Disclaimer "Some tests 08/31/2021 [facility] reported here may 4:40 PM have been CDT developed and performance characteristics determined by [facility] Pathology and Laboratory Medicine. These tests have [...] Organization Address City/State/ZIP Code Phon e Number [facility] [place] [address] [address] Confirm ABORh (08/25/2021 6:19 PM CDT) P athologist Signature ABORh Confirm. O NEG [facility] Specimen Anatomical Collection Method Collection Time Receive d Time (Source) Location / / Volume Laterality Blood 08/25/2021 6:19 PM 2 7:22 CDT PM CDT Hilario Pardo MD BLOOD BANK TEST ORDERABLES Performing Organization Address City/State/[facility] Phon e Number [facility] CANCER Unless otherwise noted, [address] all lab tests performed by: Division of Pathology and Laboratory Medicine [address] Flexible nasopharyngeal laryngoscopy (08/22/2021 10:38 AM CDT) Rebecca Mark CCC-HOME HEALTH CLINICAL SUPERVISOR - 2 10:38 AM CDT Rebecca Brown CCC-HOME HEALTH CLINICAL SUPERVISOR 08/22/2021 4:05 PM Flexible nasopharyngeal laryngoscopy Date/Time: 08/22/2021 10:38 AM Provider Information: Performed by: Rebecca Brown CCC-SL P Authorized by: OUMAR Staples Nurse Practitioner Home Assessments present?: no Indications: Indications: videostroboscopy Pre-Procedure Note: per diem interpreter: no Pre-procedure patient condition: coher ent [...] discharge to home Alexandra OSEGUERA ENT ORDERABLES Echocardiogram 2D Complete (07/11/2021 4:16 PM [employer]) Specimen (Source) Anatomical Collection Method Collection Time Re ceived Time Location / / Volume Laterality 07/11/2021 1:55 PM [employer] Narrative ISCV - 07/11/2021 4:19 PM [employer] Echocardiographic Report Interpretation Summary A complete two-dimensional [...] Ao root area: 8.3 cm2 LVOT area: 4. 2 cm2 LA dimension: 3.3 cm EDV(MOD-A4C): 74.1 ml EDV(MOD-A2C): 103.3 ml ESV(MOD-A4C): 27.2 ml ESV(MOD-A2C): 41.7 ml EF(MOD-A4C): 63.3 % EF(MOD-A2C): 59.7 % LAV(MOD-A2C): 35.3 ml EDV(MOD-bp): 89.3 ml LAV(MOD-A4C): 3 4.3 ml ESV(MOD-bp): 34.4 ml LAV(MOD-bp): 38 .8 ml EF(MOD-bp): 61.5 % LAV(MOD-bp) Indexed: 22.1 ml/m2 EDV (MOD-bp) Index: 50.7 ml/m2 ESV (M OD-bp) Index: 19.5 ml/m2 RWT: 0.46 cm TAPSE (>1.6): 2.6 cm Doppler Measurements MV E max enid: 123.3 cm/sec MV V2 max : 135.9 cm/sec MV A max enid: 95.0 cm/sec MV max PG : 7.4 mmHg MV E/A: 1.3 MV V2 mean: 67.1 cm/sec MV mean P.1 mmHg MV V2 VTI: 32.6 cm MVA(VTI): 4.5 cm2 MV P1/2t max enid: 123.3 cm/sec Ao V 2 max: 211.4 cm/sec MV P1/2t: 49.4 msec Ao max P.9 m mHg MVA(P1/2t): 4.4 cm2 Ao V2 mean: 136. 5 cm/sec Ao mean P.5 mmHg MV dec slope: 730.2 cm/sec2 Ao V2 VT I: 44.6 cm MALA(I,D): 3.3 cm2 MALA(V,D): 3.1 cm2 LV V1 max P.7 mmHg SV(LVOT): 14 8.1 ml LV V1 mean P.0 mmHg LV V1 max: 155.4 cm/sec LV V1 mean: 119.1 cm/sec LV V1 VTI: 35.6 cm Med Peak E' [place]: 7.2 cm/sec Lat Peak E' [place]: 10.5 cm/sec TR max enid: 369.9 cm/sec RAP systole : 8.0 mmHg TR max P.7 mmHg RVSP(TR): 62.7 mmHg MALA Index (I,D): 1.9 MALA Index (V,D) : 1.7 Dimensionless Index: 0.74 E/e' (avg): 13.9 E/e' (lat): 11.7 E/e' (sept): 17.1 62 Ino De Paz MD CV ECHO ORDERABLES Performing Organization Address City/State/ZIP Code Phon e Number ISCV (ABNORMAL) Troponin T (In-House) (07/10/2021 6:09 AM FREIGHT CAR CLEANER)Only the most recent of 4 resultswithin the time period is included. athologist Signature Troponin T 37 (H) <=18 ng/L [facility] Comment: < 19 ng/L Suggest [...] Volume Laterality Blood 07/10/2021 6:09 AM 6:33 FREIGHT CAR CLEANER AM [employer]IGHT [employer] CLE[employer]ER Ino De Paz MD LAB BLOOD ORDERABLES Performing Organization Address City/State/ZIP Code Phon e Number [facility] Unless otherwise noted, [place] [address] [address] BROOK all lab tests performed by: Division of Pathology and Laboratory Medicine [facility] [address] Legionella Urine Antigen Path Review (07/08/2021 5:17 PM FREIGHT CAR CLEANER) Component Value Ref [facility] Method Time Signature Legionella Negative for L. pneumophila serogroup 1 antigen, suggesting no recent or current infection. However, infection due to other serogroups and species of Legionella are not detected by this assay. In additi SD Urine Antigen on, antigen may not be present in the urine in early AKIAK Path Review infection and the level of antigen present in the urine may be below the detection limit of the test. CA AKER ... CENTER Reviewed and Electronically signed by Pathologist: Amaury Sinha MD, PhD #[id number] Comment: AMAURY SINHA MD, PhD - [id number] Dictated by: AMAURY SINHA MD, PhD - [phone] Dictated Date/Time: 07.11.2021 1:[address] Transcribed Date/Time: 07.11.2021 1:11 AM FREIGHT CAR CLEANER Electronically Signed By: AMAURY SINHA MD, PhD - [id number] on 07.11.2021 1:11 AM C Specimen Anatomical Collection Method Collection Time Receive d Time (Source) Location / / Volume Laterality Urine 07/08/2021 5:17 PM 2 4:26 FREIGHT CAR CLEANER PM [employer] CLE[employer]ER Madelin Knight MD MICROBIOLOGY - GENERAL CALVIN AJ Performing Organization Address City/State/ZIP Code Phon e Number [facility] Unless otherwise noted, [place] [address] CENTER all lab tests performed by: Division of Pathology and Laboratory Medicine [address] [place] [address] Streptococcal Urine Antigen Path Review (07/08/2021 5:17 PM FREIGHT CAR CLE[employer]ER) Component Value Ref Test Analysis Performed Pathologis t Range Method Time At Signature Streptococcal Presumptive negative for S. pneumoniae antigen in urine, suggesting no current or recent pneumococcal infection. Infection due to S. pneumoniae cannot be ruled out since the level of antigen present in SD Urine Antigen the urine may be below the detection limit of the AKIAK Path Review test. CANCER ... CENTER Reviewed and Electronically signed by Pathologist: Amaury Sinha MD, PhD #[id number] Comment: AMAURY SINHA MD, PhD - [id number] Dictated by: AMAURY SINHA MD, PhD - [phone] Dictated Date/Time: 07.11.2021 1:[address] Transcribed Date/Time: 07.11.2021 1:11 AM FREIGHT CAR CLEANER Electronically Signed By: AMAURY SINHA MD, PhD - [id number] on 07.11.2021 1:11 AM C Specimen Anatomical Collection Method Collection Time Receive d Time (Source) Location / / Volume Laterality Urine 07/08/2021 5:17 PM 2 4:26 FREIGHT [employer] CLE[employer]ER PM [employer] CLE[employer]ER Madelin Knight MD MICROBIOLOGY - GENERAL CALVIN AJ Performing Organization Address City/[facility] Code Phon e Number [facility] Unless otherwise noted, [address] all lab tests performed by: Division of Pathology and Laboratory Medicine [address] Streptococcus pneumoniae Urine Antigen (07/08/2021 5:17 PM FREIGHT CAR CLEANER) Component Value Ref Test Analysis Performed At [facility] Streptococcal Presumptive negative for S. pneumoniae antigen in the urine, suggesting no current or recent pneumococcal infection. However, infection due to S. pneumoniae cannot be completely ruled out since the leve SD Urine Antigen l of antigen present in the urine may be below the ANUJA Interpretation detection limit of the test. CANCER CENTER Streptococcal Negative [facility] Urine Antigen AKIAK Interpretation [facility] CENTER Specimen Anatomical Collection Method Collection Time Receive d Time (Source) Location / / Volume Laterality Urine 07/08/2021 5:17 PM 2 7:39 FREIGHT CAR CLEANER PM [employer]IGHT [employer] CLE[employer]ER Madelin Knight MD [facility] CALVIN AJ Performing Organization Address [facility] Phon e Number [facility] Unless otherwise noted, [address] all lab tests performed by: Division of Pathology and Laboratory Medicine [address] Legionella Urine Antigen (07/08/2021 5:17 PM FREIGHT CAR CLEANER) Component Value Ref Test Analysis Performed At [facility] Legionella Urine Negative for L. pneumophila serogroup 1 antigen, suggesting no recent or current infection. However, infections due to other serogroups and species of Legionella are not detected by this assay. In addition, antigen may not be present in the urine in SD Antigen early infection and the leve l of antigen present in the urine may be below the detection limit of the test. AN EVELYNSON Interpretation CANCER CENTER Legionella Urine Negative [facility] Antigen AKIAK Interpretation CANCER CENTER Specimen Anatomical Collection Method Collection Time Receive d Time (Source) Location / / Volume Laterality Urine 07/08/2021 5:17 PM 2 7:39 FREIGHT CAR CLE[employer]ER PM [employer]IGHT [employer] CLE[employer]ER Madelin Knight MD MICROBIOLOGY - GENERAL CALVIN AJ Performing Organization Address City/[facility]/ZIP Code Phon e Number [facility] Unless otherwise noted, [address] all lab tests performed by: Division of Pathology and Laboratory Medicine [address] XR Abdomen AP (07/08/2021 1:31 PM FREIGHT CAR CLEANER) Anatomical Region Laterality Modality Abdomen Digital Radiography Specimen (Source) Anatomical Collection Method Collection Time Re ceived Time Location / / Volume Laterality 07/08/2021 1:32 PM F[employer]IGHT [employer] CLE[employer]ER Impressions 07/08/2021 1:34 PM [employer]IGHT [employer] CLE[employer]ER Feeding tube tip overlying the gastric f undus. Recommend further advancement. Narrative 07/08/2021 1:34 PM FREIGHT CAR CLEANER FULL RESULT: Examination: XR ABDOMEN AP on [...] undus. Recommend further advancement. Josette Vasquez MD [facility] DIAGNO[facility]IC [facility]AGING ORDER YOVANI (ABNORMAL) POC Chem 8 without Hemoglobin and Hematocrit (07/08/2021 12:14 PM FREIGHT CAR CLEANER) P athologist Signature POC NA 131 (L) [...] Clean Dev Yes POC TELCOR Performing Lab [facility] POC TELCO R Comment: [facility], [address] [place] [address]; Lab Direct or: Loida Chavez MD Specimen Anatomical Collection Method Collection Time Receive d Time (Source) Location / / Volume Laterality Blood 07/08/2021 12:14 07/08/2021 PM FREIGHT [employer] CLE[employer]ER 12:14 PM FREIGHT CAR CLE[employer]ER Josette Vasquez MD POINT OF CARE TEST ORDERABLE S Performing Organization Address City/State/ZIP Code Phon e Number POC TELCOR (ABNORMAL) D Dimer (07/08/2021 12:13 PM FREIGHT CAR CLEANER) P athologist Signature D-Dimer 0.77 (H) 0.10 - 0.50 SD MD LICEA mcg/ml [facility] Comment: Rechecked and Verified The cut off value for exclusion of venou s thromboembolism is <0.51 mcg/mL FEUs (fibrinogen equival ent units). Specimen Anatomical Collection Method Collection Time Receive d Time (Source) Location / / Volume Laterality Blood 07/08/2021 12:13 07/08/2021 PM F[employer]IGHT [employer] CLE[employer]ER 12:19 PM FREIGHT CAR CLE[employer]ER Olegario Rain MD LAB BLOOD ORDERABLES Performing Organization Address City/[facility] Phon e Number [facility] Unless otherwise noted, [address] all lab tests performed by: Division of Pathology and Laboratory Medicine [address] [place] [address] CT Head without Contrast (07/08/2021 11:05 AM FREIGHT CAR CLEANER) Anatomical Region Laterality Modality Head Computed Tomography Specimen (Source) Anatomical Collection Method Collection Time Re ceived Time Location / / Volume Laterality 07/08/2021 11:31 AM FREIGHT CAR CLEANER Impressions 07/08/2021 11:37 AM FREIGHT CAR CLEANER No acute intracranial abnormality. Narrative 07/08/2021 11:37 AM FREIGHT CAR CLEANER FULL RESULT: EXAMINATION: CT HEAD WO CONTRAST [...] No acute intracranial abnormality. Olegario Rain MD [facility] ORDERABLES CKMB (06/22/2021 11:54 AM FREIGHT CAR CLEANER) athologist Signature CK MB 2.6 <=10.4 UT MD LICEA ng/mL CANCER CENTER Specimen Anatomical Collection Method Collection Time Receive d Time (Source) Location / / Volume Laterality Blood 06/22/2021 11:54 06/22/2021 AM F[employer]IGHT CAR CLE[employer]ER 12:09 PM FREIGHT CAR CLE[employer]ER Susan Aguilar MD LAB BLOOD ORDERABLES Performing Organization Address City/State/ZIP Code Phon e Number [facility] Unless otherwise noted, [address] all lab tests performed by: Division of Pathology and Laboratory Medicine [address] [place] [address] Creatine Kinase (06/22/2021 11:54 AM FREIGHT CAR CLEANER) athologist [facility] CK 84 39 - 308 [facility] U/L [facility] Specimen Anatomical Collection Method Collection Time Receive d Time (Source) Location / / Volume Laterality Blood 06/22/2021 11:54 06/22/2021 AM FREIGHT CAR CLEANER 12:09 PM FREIGHT CAR CLEANER Susan Aguilar MD LAB BLOOD ORDERABLES Performing Organization Address City/[facility]/ZIP Code Phon e Number [facility] Unless otherwise noted, [address] all lab tests performed by: Division of Pathology and Laboratory Medicine [facility] Head/Neck Simulation without Contrast (06/21/2021 9:00 AM FREIGHT CAR CLEANER)Only the most recent of2 resultswithin the time period is included. Specimen (Source) Anatomical Location Collection Method / Collectio n Time Received Time / Laterality Volume Narrative Systemgenerated, Documentation - 022 9:00 AM FREIGHT CAR CLEANER This procedure requires no interpretatio n from the radiologist. Alexandra OSEGUERA IMG RO CT SIM ORDERABLES COVID-19 (MAURA-CoV-2) PCR Asymptomatic (05/11/2021 9:05 AM FREIGHT CAR CLEANER)Only the most recent of2 resultswithin the time period is included. Component Value Ref Range Test Analysis Performed Pathologis t Method Time At [facility] COVID19 SARS Pre-Out of OR UT Indication Procedure [facility] COVID19 SARS Not Detected Not ROMAN CRAWLEY Result Detected [facility] COVID19 SARS SARS-CoV-2 NOT Detected. SD Interpretation AKIAK Reference Range: Not Detected [facility] Methodology: The [employer] Real Time SARS-CoV-2 assay is a qualitative real-time reverse surtass analyst polymerase chain reaction (shoe repairer apprentice-PCR) test to detect RNA from SARS-CoV-2 in nasal, nasopharyngeal and oropharyngeal swabs from patients with signs and symptoms of infection who ar e suspected of COVID-19 by their health care provider. The [employer] RealTime SARS-CoV-2 performed on the The [employer] SL000 System is a dual target assay with [...] high- complexity Molecular Diagnostics Laboratory (MDL) at [facility] under the Food and Drug Administration (FDA) s Emergency Use Authorization. Factsheet for patients: https://www.[facility].org/AbbottFac tSheetPatients Factsheet for healthcare pro viders: https://www.[facility].org/AbbottFactSheetHCP Test performed by: [facility] Molecular Diagnostic Lab [address] [place] [address] Specimen (Source) Anatomical Collection Method Collection Time Re ceived Time Location / / Volume Laterality Nasopharyngeal Swab 05/11/2021 9:05 05/11 AM FREIGHT CAR CLEANER 11:08 AM FREIGHT CAR CLEANER Alexandra OSEGUERA MICROBIOLOGY - GENERAL ORDER YOVANI Performing Organization Address City/State/ZIP Code Phon e Number [facility] Unless otherwise noted, [place] [id number] CENTER all lab tests performed by: Division of Pathology and Laboratory Medicine [address] Orthopantogram (05/06/2021 10:53 AM FREIGHT CAR CLEANER) Specimen (Source) Anatomical Location Collection Method / Collectio n Time Received Time / Laterality Volume Narrative Systemgenerated, Documentation - 021 10:53 AM FREIGHT CAR CLEANER This procedure requires no interpretatio n from the radiologist. Elva Jovel DDS IMG NON DI ORDERABLES HOME HEALTH CLINICAL SUPERVISOR Videostroboscopy (05/06/2021 9:58 AM FREIGHT CAR CLEANER) Narrative OLYMPUS - 05/06/2021 9:58 AM FREIGHT CAR CLEANER Sara Harris, PhD 05/06/2021 10:12 AM HOME HEALTH CLINICAL SUPERVISOR Videostroboscopy Laterality (if applicable): right Date/Time: 05/06/2021 9:58 AM Provider Information: Performed by: Sara Harris, PhD Authorized by: OUMAR Staples Indication: Indications for procedure: abnormal symp paulo Abnormal symptom: dysphonia Anesthesia: Local anesthesia used?: local anesthesia used Anesthesia: topical application Local anesthetic: lidocaine spray Sedation: Patient sedated?: patient not sedated Alexandra OSEGUERA HOME HEALTH CLINICAL SUPERVISOR ORDERABLES Performing Organization Address City/[facility] Code Phon e Number OLYMPUS TMP HCV Ab Path Interp (05/03/2021 8:26 AM FREIGHT CAR CLEANER) [facility] Method Time Signature HCV Ab Path There is NO [facility] serologic [facility] CENTER evidence of Hepatitis C virus antibody. Comment: RUFINO FERNANDEZ, Dictated by: RUFINO FERNANDEZ, Dictated Date/Time: 05.04.2021 6:[address] Transcribed Date/Time: 05.04.2021 6:33 AM FREIGHT CAR CLEANER Electronically Signed By: RUFINO FERNANDEZ, on 05.04.2021 6:33 AM C Specimen Anatomical Collection Method Collection Time Receive d Time (Source) Location / / Volume Laterality Blood 05/03/2021 8:26 AM FREIGHT CAR CLEANER 10:40 PM FREIGHT CAR CLEANER Alexandra OSEGUERA LAB BLOOD ORDERABLES Performing Organization Address City/[facility] Phon e Number [facility] [address] [place] [address] Hepatitis C Virus Ab (05/03/2021 8:26 AM FREIGHT CAR CLEANER) [facility] Method Time Signature HCVAb. Non Reactive Non Reactive [facility] Comment: Antibody detection in the immunocompromi sed and immunosuppressed population may be delayed or absent entirely. Therefore serial testing, correlation with other clinical findings, and supplemental testin g (if available) should be taken into co nsideration when interpreting the results. Performed at: [facility] [address] [place] [address] Specimen Anatomical Collection Method Collection Time Receive d Time (Source) Location / / Volume Laterality Blood 05/03/2021 8:26 AM FREIGHT CAR CLEANER 10:40 PM FREIGHT CAR CLEANER Alexandra OSEGUERA LAB BLOOD ORDERABLES Performing Organization Address City/State/ZIP Code Phon e Number [facility] [place] [address] after 04/18/2021 Insurance Payer Benefit Plan Subscriber ID Effective Phone Address Typ e / Group Dates MEDICARE MEDICARE PART [id number] 2014-Prese [phone] NOVITAS Medicare A AND B nt 82 SOLUTIONS [address] [place] [address] [employer] [place] OF [id number] 2015-Prese [id number] [facility] [place] [address] [phone] (Work) Roland Lam Personal/Family Self [address] (Home) [place] [address] Advance Directives Type Date Recorded Patient Research Consultant Explanati on Advance Directives: 11/08/2021 Medical Dandre r of Lead Technical Writer Medical Power of Lead Technical Writer Code Status Date Activated Date Inactivated Comments Full Code 04/05/2022 9:21 PM 04/16/2022 2:16 PM Code Status Date Activated Date Inactivated Comments Full Code 11/08/2021 2:27 PM 11/12/2021 5:56 PM Full Code 10/15/2021 1:48 AM 10/27/2021 8:21 PM Full Code 08/26/2021 7:24 PM 08/31/2021 6:23 PM Full Code 08/25/2021 9:45 PM 08/26/2021 7:24 PM Care Teams Keyliner Relationship Specialty Start Date End Date Olivia Coleman DO PCP - External Otolaryngology 04/13/21 Referring Slava Canseco, PCP - General Radiation Oncology 04/25/[address] [place] [id number] Yumi Desir MD Consulting Physician Head and Neck Medical 05/13/[address] [place] [address] [place] [address] Ene Polk MD Consulting Physician Head and Neck Surgery 05/13/[address] [place] [id number] Camilla Davenport, Clinical Dietitian Nutrition 07/19/[address] [place] [address] [address] [place] [address] Anca Maurer, Nurse Practitioner Head and Neck Medical 08/15/21 SILK SPREADER Oncology [address] [place] [id number] Michael Lam, Consulting Physician Gastroenterology, 09/05/21 MD Hepatology and Nutrition [address] [place] [id number] Brady Payan, Consulting Physician Gastroenterology, 09/07/21 MD Hepatology and Nutrition
--- OUTSIDE RECORDS SUMMARY | 2022-04-18 08:05 | XMS REPORT | Continuity of Care Document ---
:[address] [facility] t Address [address] [place] [address] Care Team Providers Name Role Phone [phone] Primary Care Physician Unavailable ENE POLK Attending Clinician Unavailable SYSTEM, PROVIDER NOT IN Attending Clinician Unavailable Alanna Bullard Attending Clinician Unavailable INO DE PAZ Attending Clinician Unavailable Char KHALIL, Anila Attending Clinician Ene Polk MD Attending Clinician Eric Fitzpatrick MD Attending Clinician MCKAYLA PORTILLO Attending Clinician Unavailable SLAVA ARIZA Attending Clinician Unavailable Adebayo [facility]3]-SANDBLASTING SUPERVISOR, Sravan Vogt Attending Clinician UnavailRobert Hendrickson Attending Clinician Unavailable Venkat Davis MD Attending Clinician Leonid Kumar Attending Clinician Unavailable Addie Arreguin MD Attending Clinician Martin Tolentino MA Attending Clinician Unavailable Kirit Elmore RN Attending Clinician Unavailable DULCE WASHINGTON Attending Clinician Unavailable Felix KHALIL, Dulce Singh Attending Clinician TRIPP DORAN Attending Clinician Unavailable Stephani CRAWLEY, Tripp Attending Clinician SEBASTIEN NEVILLE Attending Clinician Unavailable Jamin OSEGUERA, Sebastien Attending Clinician Solomon BOWENS, Lucas Attending Clinician Unavailable Harleen CRAWLEY, Slava Romero Attending Clinician Meg Wolfe MA Attending Clinician Unavailable John CRAWLEY, Hima Attending Clinician EASTON SUMNER Attending Clinician Unavailable Elizabeth CRAWLEY, Easton Attending Clinician Kassandra CRAWLEY, Fareed Attending Clinician [phone] Cathleen [facility]3]-SANDBLASTING SUPERVISOR, Crista Mcintosh Attending Clinician Unavailable DANN SUAREZ Attending Clinician Unavailable Alexandra Miller Attending Clinician KOSTA AHUJA Attending Clinician Unavailable Seymour CRAWLEY, Kosta Attending Clinician Yamilex Fox RN Attending Clinician Link Schaffer RD Attending Clinician Adele Christensen Attending Clinician Liliana Martin NP Attending Clinician Irasema CRALWEY, Juan Miguel Angel Attending Clinician Sebas Pelletier MD Attending Clinician Yun Tyler MD Attending Clinician [phone] SEBAS PELLETIER Attending Clinician Unavailable Mj Azevedo RN Attending Clinician Unavailable Sraah Rudd RN Attending Clinician Unavailable Richard Thomas Attending Clinician Talia Munoz RN Attending Clinician Unavailable Steven PhD, Sara Kinney Attending Clinician [phone] Darrick RN, Nevin Singh Attending Clinician Unavailable Jered RN, Bird Wilburn Attending Clinician Jerry GOL[employer] CLUB WEIGHTER, Leobardo Zhang T Attending Clinician Satnam OSEGUERA, Jose Luis Babb Attending Clinician Heena CRAWLEY, Clement Rivera Attending Clinician Gavino CRAWLEY, Cintia Attending Clinician Andres [facility]3]-SANDBLASTING SUPERVISOR, Kita Sullivan Attending Clinician [phone] Ida CRAWLEY, Kong Attending Clinician Douglas BOWENS, Syeda Mcintosh Attending Clinician Unavailable Edvin CRAWLEY, Hilario Garzon Attending Clinician Genaro CRAWLEY, Shilo Attending Clinician Unavailable Nay BOWENS, Jazzmine Singh Attending Clinician Gaurav CRAWLEY, Aaron Richmond Attending Clinician Huan BOWENS, Zafar Attending Clinician Unavailable Cleveland CRAWLEY, Shailesh Attending Clinician Darrick CRAWLEY, Nilam Ruby Attending Clinician [phone] Chevy Kearns CRNA Attending Clinician Stephanie [facility]3]-SANDBLASTING SUPERVISOR, Rebecca Singh Attending Clinician Unavailable Oralia Javier Attending Clinician Kiah CRAWLEY, Cody Attending Clinician Ramírez CRAWLEY, Sofya Gallego Attending Clinician Eugene CRAWLEY, Sharlene Serra Attending Clinician [phone] Vivian RCAWLEY, Amber Attending Clinician Mcghee NP, Shirley Gallego Attending Clinician Krish CRAWLEY, Link Attending Clinician Louie CRAWLEY, Yong Attending Clinician Marcello CRAWLEY, Padmini Attending Clinician Priscilla CRAWLEY, Eddie Witt Attending Clinician Harman BARRIGA, Elizabeth Attending Clinician Gloria BOWENS, Wayne Singh Attending Clinician Jordan CCC-SANDBLASTING SUPERVISOR, Roberta Attending Clinician Ethel BOWEN, Camilla A Attending Clinician Jaelyn CRAWLEY, Jean Marie E Attending Clinician Loy RASMUSSENN, Rachid S Attending Clinician Unavailable Kerline Arrington, Candy Attending Clinician Jose OSEGUERA, Caprice Holm Attending Clinician Clemons, Huan H Attending Clinician Unavailable Erasto SNOWMOBILE MECHANIC, Anca H Attending Clinician Dejan BOWENS, April Bertrand Attending Clinician Unavailable Ghassan CRAWLEY, Alta Bertrand Attending Clinician Koffi CRAWLEY, Olegario Gamez Attending Clinician Rajendra Brooks MD, Elvia Attending Clinician Rachid CRAWLEY, Robert Attending Clinician Victor Manuel CRAWLEY, Talia Attending Clinician Michael Flowers MD Attending Clinician Callum [facility]3]-SANDBLASTING SUPERVISOR, Caprice Singh Attending Clinician Unavailable Sara Deras MD Attending Clinician Zach Mandujano CRNA Attending Clinician SUSAN TORO Attending Clinician Unavailable LLOYD VARGAS Attending Clinician Unavailable Carina CCC-SANDBLASTING SUPERVISOR, Sara Attending Clinician [phone] Lloyd Buck Attending Clinician Margo Reyes RN Attending Clinician Unavailable Piero CRAWLEY, Johanne Attending Clinician Thang CRAWLEY, Yumi Attending Clinician Christina CRAWLEY, Josette Attending Clinician Zandra CRAWLEY, Ino Attending Clinician [phone] Leobardo RN, Eliza Attending Clinician Leela BOWENS, Shwetha Babb Attending Clinician Unavailable Nancy ANDRÉS, Maame Jamil Attending Clinician Kp BOWENS, Ten Rivera Attending Clinician Unavailable Yajaira BOWENS, Erica Attending Clinician Unavailable Irene CRAWLEY, Caprice Antonio Attending Clinician [phone] Francisco BOWENS, Christy Gallego Attending Clinician Unavailable Jerel CRAWLEY, Bela Attending Clinician Katie BOWENS, Sam Garzon Attending Clinician Unavailable Jam Walker, Alyse Nuñez Attending Clinician [phone] Kathy [facility]3]-SANDBLASTING SUPERVISOR, Christy Miranda Attending Clinician [phone] Yue Alaniz RN Attending Clinician Unavailable Mevlina CRAWLEY, Romeo Babb Attending Clinician Favio CRAWLEY, Yue Eagle Attending Clinician Maine CRAWLEY, Brenda Attending Clinician ANNA CARDOSO Attending Clinician Unavailable Galo BOWENS, Cole Attending Clinician Unavailable Roc James RN Attending Clinician Unavailable Patrick CRAWLEY, Caprice Cardona Attending Clinician Song [facility]3]-SANDBLASTING SUPERVISOR, Cady Sullivan Attending Clinician Unavailable Jane Hill Attending Clinician [phone] Thao Baldwin MA Attending Clinician Unavailable Arina Robles Attending Clinician Unavailable Zahra CRAWLEY PhD, Jose Martin Ortiz Attending Clinician [phone] LEONID SALINAS Attending Clinician Unavailable Med CRUZ, Elva Attending Clinician Josse CRAWLEY, Dixie Fierro Attending Clinician [phone] Darrick BOWENS, Trixie Kinney Attending Clinician Troy CRAWLEY, Yesenia Tena Attending Clinician Steve Munguia MD Attending Clinician Dawit CRAWLEY, Korina Attending Clinician ENE POLK Admitting Clinician Unavailable YUN TYLER CURLY Admitting Clinician Unavailable CINTIA ADAME Admitting Clinician Unavailable SHARLENE MADRIGAL Admitting Clinician Unavailable Payers Payer Name Policy Type Policy Number Effective Date Expiration Date S laura MEDICARE PART A [id number] 2014 AND B 00:00:00 [employer] [place] [id number] 2015 00:00:00 [employer] [place] C1 [id number] 2017 Common Sp franco 00:00:00 [facility] MEDICARE MB [id number] [facility] NOVITAS - [facility] Problems Condition Condition Condition Status Onset Resolution Last Treating Co mments Source Name Details Category Date Date Treatment Clinician Date SOB SOB Disease Active Methodi (shortness (shortness 8-23 st of breath) of breath) 00:00: [facility] sp[facility] 00 l Tracheal Tracheal Disease Active [facility] S t hemorrhage hemorrhage 8-12 Myah kes 00:00: [facility] 00 [place] Fistula Fistula Disease Active Univers 7-21 ity of 00:00: [place] 00 MD Jeanmarie patel [facility] Cellulitis Cellulitis Disease Active U nivers of neck of neck 7- ity of 00:00: 00 MD Jeanmarie patel [facility] Nicotine Nicotine Disease Active Unive rs dependence dependence 6 it y of , , 00:00: [place] cigarettes cigarettes 00 , Jeanmraie uncomplica uncomplica n mary hernandez [facility] Fatigue Fatigue Disease Active Last Univers 11-08 Assessmen ity of 00:00: t & Plan: Demi CRAWLEY g of this Jeanmarie note n might be Cancer different Center from the original. Will evaluate for obstructi ve sleep apnea with Home sleep Study. Dyspnea Dyspnea Disease Active Overview: Univ ers 6-07 Formattin ity of 00:00: g of this note might be Anderso different n from the Cancer original. Center Added automatic ally from request for surgery [id number] Hypercapni Hypercapni Disease Recurre Univers a a nce 5-22 ity of 00:00: [place] 00 MD Jeanmarie patel [facility] Aortic Aortic Disease Recurre Univers valve valve nce 5-18 ity of stenosis stenosis 00:00: 00 MD Jeanmarie patel [facility] Chronic Chronic Disease Recurre Univer s diastolic diastolic nce 5-18 ity of heart heart 00:00: [place] failure failure 00 MD Jeanmarie patel [facility] Acute and Acute and Disease Active Uni vers chronic chronic 5-17 ity of respir[place] failure 00 with with Andreginaldo hypercapni hypercapni n a a [facility] Orthostati Orthostati Disease Active U nivers c c 5-14 ity of hypotensio hypotensio [place] 00 [place] Jeanmarie patel [facility] Acute Acute Disease Active Univers posthemorr posthemorr 5-14 it y of hagic hagic 00:00: [place] anemia anemia 00 MD Jeanmarie patel [facility] Lower Lower Disease Active Univers gastrointe gastrointe 5-14 it y of stinal stinal 00:00: [place] hemorrhage hemorrhage 00 MD Jeanmarie patel [facility] Hyposmolal Hyposmolal Disease Active U nivers ity and/or ity and/or 5-14 it y of hyponatrem hyponatrem [place] 00 [place] Jeanmarie patel [facility] Hypopharyn Hypopharyn Disease Active Overview : Univers geal geal 5-13 Formattin ity of lesion lesion 00:00: g of this note might be Anderso different n from the Cancer original. Center Added automatic ally from request for surgery [id number] Hypopharyn Hypopharyn Disease Active Overview : Univers geal geal 5-13 Formattin ity of lesion lesion 00:00: g of this note might be Anderso different n from the Cancer original. Center Added automatic ally from request for surgery [id number] /1 CMS regulator y import Breathing- Breathing- Disease Active U nivers related related 5-11 ity of sleep sleep 00:00: [place] disorder disorder 00 MD Jeanmarie patel [facility] Gastrostom Gastrostom Disease Active U nivers y present y present 5-11 ity of 00:00: [place] 00 MD Jeanmarie patel [facility] Ex-smoker Ex-smoker Disease Active Uni vers for less for less 5-11 ity of than 1 than 1 00:00: [place] year MD Jeanmarie patel [facility] Melena Melena Disease Active Univers 3-25 ity of 00:00: [place] 00 MD Murry [facility] Aspiration Aspiration Disease Active U nivers pneumonia pneumonia 2-06 ity of 00:00: [place] 00 MD [facility] 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 1-26 it y of brent kennedy 00:00: [place] malnutriti malnutriti [facility] Chest pain Chest pain Disease Active M ethodi - st 00:00: Hospita 00 l Swallowing Swallowing Disease Active U nivers painful painful 1-05 ity of 00:00: [place] 00 MD Jeanmarie patel [facility] Hypomagnes Hypomagnes Disease Active U nivers emia emia 1-05 ity of 00:00: [place] 00 MD [facility] Bilateral Bilateral Disease Active Uni vers tinnitus tinnitus 1-05 ity of 00:00: [place] 00 MD [facility] Neuropathy Neuropathy Disease Active U nivers due to due to 1-05 ity of type 2 type 2 00:00: [place] diabetes diabetes 00 mellitus mellitus [facility] Multiple Multiple Disease Active 2020-06 Unive rs nodules of nodules of 2-08 it y of lung lung 00:00: [place] 00 MD Jeanmarie patel [facility] 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 Arthur o [facility] Laryngopha Laryngopha Disease Active 2020-06 U nivers ryngeal ryngeal 1-23 ity of reflux reflux 00:00: [place] 00 MD Jeanmarie patel [facility] [place] Essential Essential Disease Active Met hodi hypertensi hypertensi 5-25 st on on 00:00: Hospita 00 l Essential Essential Disease Recurre Un danae hypertensi hypertensi nce 5-15 it y of on on 00:00: [place] 00 MD Jeanmarie patel [facility] [place] PAD PAD Disease Active Methodi (periphera (periphera - st l artery l artery 00:00: Hospit a disease) disease) 00 l Carotid Carotid Disease Active Methodi artery artery -09 st disease disease 00:00: Hospita 00 l Coronary Coronary Disease Recurre Univ ers arterioscl arterioscl nce 10-10 it y of erosis erosis 00:00: [place] 00 MD Jeanmarie patel [facility] Chronic Chronic Disease Recurre 2015-06 Last Univer s obstructiv obstructiv nce 06-26 Assessmen ity of e e 00:00: t & Plan: [place] pulmonary pulmonary 00 Formattin M D disease disease g of this Jorge so note n might be Cancer different Center from the original. Patient reports improveme nt in shortness of breath with lowest o2 saturatio n of 98% which is improved in compariso n to last 6mwt.Loi mmend continued use of inhaled therapy and nebulized therapy.W ill follow up in 6 months. 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 diabetes nce 06-25 ity of mellitus mellitus 00:00: [place] without without 00 complicati complicati An derso on on n [facility] Acute Acute Disease Active Univers postoperat postoperat it y of sheron pain sheron pain Donn patel [facility] Center Malignant Malignant Problem Com mon tumor of neoplasm Spirit larynx of larynx, - CHI unspecifie [facility] Tobacco Nicotine Problem Common user dependence Spirit , - [facility]I cigarettes [facility] uncomplica [facility] Acute Chronic Problem Common exacerbati obstructiv Sp franco on of e - CHI chronic pulmonary St obstructiv disease [facility]ukes e airways with Medical disease (acute) Center exacerbati on 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 Sp franco origin n, - CHI unspecifie St d erectile [facility]ukes dysfunctio Medica l n type Center Chronic Chronic Problem Common fatigue fatigue Spirit syndrome - [facility] Tinnitus Tinnitus Problem Commo n Spirit - [facility] Mixed Hyperlipid Problem Commo n hyperlipid emia, Spirit emia mixed - [facility] [id number] Tracheosto Problem Co mmon my in Spirit place - [facility] Seasonal Seasonal Problem Commo n allergic allergic Spirit rhinitis rhinitis, - CHI unspecifie [facility] d [facility] [id number] Nicotine Problem Comm on dependence Spirit with - CHI current use [facility] Nicotine Nicotine Problem Commo n dependence dependence Sp franco - CHI [facility] [id number] Heavy Problem Common cigarette Spirit smoker - [facility] (20-[address]) [facility] Obese Obese Problem [facility] - [facility] [id number] History of Problem Co mmon colon Spirit polyps - [facility] Gastroesop GERD Problem Commo n hageal (gastroeso Spirit reflux phageal - [facility] disease reflux St disease) [facility] [id number] Status Problem Commo n [id number] post Spirit peripheral - CHI artery St angioplast [facility] y with Medical insertion Center of stent Sexual Sexual Problem Common dysfunctio dysfunctio Sp franco n n - CH[facility] Diabetes Diabetes Problem Commo n mellitus Spirit without - CHI complicati [facility] Claudicati Claudicati Problem C ommon on on Spirit - CH[facility] Dysphagia Pharyngoes Problem Co mmon ophageal Spirit dysphagia - [facility] [id number] Other iron Problem Com mon deficiency Spirit anemia - [facility] [id number] Chronic Problem Common bronchitis Spirit , - CHI unspecifie d chronic [facility] bronchitis Medica l type Center Anemia Fatigue Problem Common associated Spirit with - CHI anemia [facility] Elevated Elevated Problem Commo n blood blood [facility] pressure pressure - [facility] reading reading in [facility] office [facility] diagnosis without Medica l of diagnosis Center hypertensi of on hypertensi on [id number] PAD Problem Common (periphera Spirit l artery - CHI disease) [facility] Diverticul Diverticul Problem C ommon osis of osis of Spirit colon colon - [facility] Colonic Colonic Problem Common polyp polyp Spirit - [facility] Acute Acute Disease Resolve 2021-08-27 2021-08-27 Univers hypoxemic hypoxemic d 2-06 00:00:00 14:15:25 ity of respirator [place] failure y failure 00 MD Jeanmarie patel [facility] Disorder Disorder Disease Resolve 2021-08-27 2021-08-27 Univers of fluid of fluid d 2-04 00:00:00 14:15:36 it y of AND/OR AND/OR 00:00: [place] electrolyt electrolyt 00 [facility] Syncope Syncope Disease Resolve 2021-08-27 2021-08-27 Univers d 2- 00:00:00 14:15:54 ity of 00:00: 00 [facility] Serum Serum Disease Resolve 2021-08-27 2021-08-27 Univers creatinine creatinine d - 00:00:00 14:15:51 ity of raised raised 00:00: [place] 00 [facility] Thick Thick Disease Resolve 2021-06-29 2021-06-29 Univers sputum sputum d 06-29 00:00:00 13:45:12 ity of 00:00: [place] 00 MD Jeanmarie patel [facility] Peripheral Peripheral Disease Resolve 2021-06-29 2021-06-29 Univers vascular vascular d 06-29 00:00:00 13:45:05 it y of angioplast [place]oplast [place] status y status 00 with with Anderso implants implants n and grafts and grafts Ca [facility] Tinnitus Tinnitus Disease Resolve 2021-06-29 2021-06-29 Univers d 06-29 00:00:00 13:45:21 ity of 00:00: [place] 00 MD Jeanmarie patel [facility] Peripheral Peripheral Disease Resolve 2021-06-29 2021-06-29 Univers arterial arterial d 10-10 00:00:00 13:44:30 it y of occlusive occlusive 00:00[place] disease disease 00 MD [facility] Type 2 Type 2 Disease Resolve 2020-062021-06-0120202021-06-01 Univers diabetes diabetes d 2-08 00:00:00 14:19:44 it y of mellitus mellitus 00:00: [place] in obese in obese 00 MD Jeanmarie patel [facility] Allergies, Adverse Reactions, Alerts Allergy Allergy Status Severity Reaction(s) Onset Inactive Treating Comm ents Source Name Type Date Date Clinician Animal Propensi Active [facility] to 8[facility]12 [facility] adverse 00:00: Medical reaction 00 Center s ANIMAL Allergy Active [facility] 8[facility]12 [facility] 00:[facility]: Medical 00 Center tramadol tramadol Active Unknown Commo n Spirit - [facility] Family History Family Member Diagnosis Comments Start Date Stop Date Source Natural father COPD [facility] Natural father Emphysema [facility] Natural mother Diabetes [facility] Natural mother [facility] Natural mother Hyperlipidemia Method ist [facility] Natural mother Breast cancer [facility] MD Dorantes [facility] [place] Social History Social Habit Start Date Stop Date Quantity Comments Source History of Tobacco [facility] Spirit - Use [facility] History [facility] Alcohol intake 2022-04-13 2022-04-13 Ex-drinker University 00:00:00 00:00:00 (finding) [place] MD Patel [facility] Exposure to 2022-03-26 2022-04-05 Not sure [facility] SARS-CoV-2 (event) 00:00:00 22:57:00 [facility] 2022-[facility]-14 2022-01-[address] [facility] Med 00:00:00 00:00:[address] [facility] 2022-01-14 2022-01-[address] [facility] Unable to 00:00:00 00:00:00 Medical Center Pay [facility] 2022-01-14 2022-01-[address] [facility] Places 00:00:00 00:00:00 Medical Ce nter Lived [facility] 2022-01-14 2022-01-[address] [facility] Homeless 00:00:00 00:00:00 Medical Center Last Year Tobacco use and 2022-01-13 2022-01-[address] [facility] exposure 00:00:00 00:00:00 Medical Center Cigarettes smoked 2021-10-08 2021-10-08 Univers ity of current (pack per 00:00:00 00:00:00 Donn Rivera ) - Reported Cancer Ce nter Cigarette 2021-10-08 2021-10-08 University of pack-years 00:00:00 00:00:00 [place] MD Jorge bundy [facility] Center Sex [birth year] At [birth year] Jewish 00:00:00 00:00:00 Hospital Smoking Status Start Date Stop Date Source Ex-smoker 2021-10-08 00:00:00 2021-10-08 00:00:00 [facility] Current Smoker 2021-09-29 00:00:00 [facility] t - [facility] Medications Ordered Filled Start Stop Current Ordering Indication Dosage Frequency Signature Comments Components Source Medication Medication Date Date Medication? Clinician (SIG) Name Name albuterol 2021-06 Yes 2{puff} Inhale 2 U nivers (VENTOLIN 1-13 puffs by ity of HFA,PROAIR 12:11: mouth [place] HFA) 90 52 every 6 MD mcg/puff (six) Anderso inhaler hours as n needed. [facility] Center budesonide- 2021-06 Yes Inhale by U nivers formoterol 1-13 mouth ity of (SYMBICORT) 12:11: twice [place] 160-4.5 52 daily. mcg/actuati Anderso on inhaler n Cancer Center HYDROcodone 2021-06 Yes Acute 15mL Give 15 mL Univers -acetaminop -13 postoperati by feeding ity of hen (HYCET) 00:00: ve pain tube route [place] 7.5 mg-325 00 every 4 MD mg/15 mL (four) Anderso solution hours as n needed Cancer (pain). Center amoxicillin 2021-06- Yes Primary 875mg Mix as Univers -clavulanat 1-13 11-17 squamous directed ity of e 00:00: 05:59 cell with water Donn (AUGMENTIN) 00 :00 carcinoma provided. 400 mg-57 of larynx Shake well Anderso mg/5 mL and give n suspension 10.9 mL Cancer (875 mg) Center by feeding tube route twice daily for 3 days. Discard any remainder. aspirin 81 2021-06 Yes Primary 81mg 1 tablet Univers mg chewable 11 squamous (81 mg) by ity of tablet 00:00: cell feeding [place] 00 carcinoma tube route MD of larynx daily. Anderso n Cancer Center senna 2021-06 Yes Primary 1{tbl} Give 1 Unive rs (Senna Lax) 11 squamous tablet by ity of 8.6 mg 00:00: cell feeding [place] tablet 00 carcinoma tube route MD of larynx 2 (two) Anderso times a n day as Cancer needed for Center constipati on. sodium 2021-06 Yes Primary 3mL Irrigate Univ ers chloride 11 squamous with 3 mL it y of 0.9% 00:00: cell as [place] nebulizer 00 carcinoma directed 3 MD solution of larynx (three) And erso times a n day as Cancer needed for Center irrigation . Administer via tracheosto my tube as needed for trach care potassium 2021-06- Yes Primary 40meq Take 2 U nivers chloride 06-14 11-24 squamous packets ity of (Klor-Con) 00:00: 05:59 [place]40 [place]Eq[place] 20 mEq 00 :00 carcinoma by feeding MD packet of larynx tube route An derso 3 (three) n times a Cancer day for 10 Center days. Mix contents of 1 packet in 4 ounces (120 mL) of water or juice. Stir well and administer promptly. amoxicillin 2021-06- No Primary 875mg Mix as Univers -clavulanat 06-14 11-13 squamous directed ity of e 00:00: 00:00 cell with water Donn (AUGMENTIN) 00 :00 carcinoma provided. 400 mg-57 of larynx Give 11 mL Anderso mg/5 mL (875 mg) n suspension by feeding Can cer tube route Center twice daily for 14 days. Discard remaining medication after 14 days. nut.tx.gluc 2021-06 Yes Primary 500mL Give 500 Univers intol,lf,so 1-10 squamous mL per it y of y/fiber 00:00: cell G-tube 3 [place] (diabetisou 00 carcinoma (three) MD beckwith AC) of larynx times a Arthur rso enteral day with n tube meals. Cancer feeding Center gabapentin 2021-06 Yes Primary 300mg Open and Univers (Neurontin) 1-10 squamous give 1 it y of 300 mg 00:00: cell capsule [place] capsule 00 carcinoma (300 mg) MD of larynx by feeding Arthur rso tube route n 3 (three) Cancer times a Center day. Open capsule and administer contents as directed through feeding tube. apixaban 2021-06 Yes Primary 5mg Crush and U nivers (ELIQUIS) 5 1-10 squamous give 1 it y of mg tablet 00:00: cell tablet (5 Al as 00 carcinoma mg) by MD of larynx feeding Anderso tube route n every 12 Cancer (twelve) Center hours. senna 2021-06- No Primary 1{tbl} Take 1 Univ ers (Senna Lax) 1-10 11-11 squamous tablet by ity of 8.6 mg 00:00: 00:00 cell mouth 2 [place] tablet 00 :00 carcinoma (two) MD of larynx times a Anderso day as n needed for Cancer constipati Center on. potassium 2021-06- No Hypokalemia Take 2 Univers chloride 0-28 11-13 tablets PO ity of (Klor-Con 00:00: 00:00 2x daily Al as M20) 20 mEq 00 :00 for 2 days MD tablet then 1 Anderso tablet n daily Cancer Center naloxone 2021-06 Yes Oral Use 1 dose Uni vers (Narcan) 4 0-05 mucositis into one ity of mg/actuatio 00:00: due to nostril as [place] n nasal 00 radiation needed for M D spray opioid Anderso overdose. n Do not Cancer prime or Center test the inhaler prior to adminstrat ion. Give another dose into the other nostril after 2 to 3 minutes if the patient does not respond or responds and then relapses into respirator y depression . HYDROcodone 2021-06- No Oral .5{tbl} 0.5-1 U nivers -acetaminop 0-05 11-13 mucositis tablets by ity of hen (NORCO) 00:00: 00:00 due to feeding [place] 5 mg-325 mg 00 :00 radiation tube route MD per tablet every 8 Chucky o (eight) n hours as Cancer needed for Center severe pain. HYDROcodone HYDROcodone 2021-06- No TID HYDROcodon -Acetaminop -Acetaminop 0-04 10-18 e-Acetamin hen 5-325 hen 5-325 00:00: 00:00 ophen MG MG 00 :00 5-325 MG HYDROcodone HYDROcodone 2021-06- No TID HYDROcodon -Acetaminop -Acetaminop 0-04 10-18 e-Acetamin hen 5-325 hen 5-325 00:00: 00:00 ophen MG MG 00 :00 5-325 MG HYDROcodone HYDROcodone 2021-06- No TID HYDROcodon -Acetaminop -Acetaminop 0-04 10-18 e-Acetamin hen 5-325 hen 5-325 00:00: 00:00 ophen MG MG 00 :00 5-325 MG gabapentin 2021- No Cellulitis TAKE ONE Univers (NEURONTIN) 02-27 11-13 of neck (1) ity of 300 mg 00:00: 00:00 CAPSULE(S) [place] capsule 00 :00 BY MOUTH MD THREE Anderso TIMES A n DAY. Cancer Center traMADol 2021- No Oral TAKE ONE Univ ers (ULTRAM) 50 02-27 11-13 mucositis (1) TABLET ity of mg tablet 00:00: 00:00 due to BY MOUTH [place] 00 :00 radiation EVERY FOUR MD HOURS Anderso NEEDED FOR n MODERATE Cancer PAIN OR Center SEVERE PAIN. ciprofloxac 2021- No Cellulitis 500mg Give 10 mL Univers in feeding 02-23 09-30 of neck (500 mg) i ty of tube 00:00: 04:59 per J-tube [place] suspension 00 :00 twice MD 50 mg/mL daily for Ch[place] o (AMB-CMPD) 7 days. n Cancer Center budesonide- 2021- No 2{puff} QD Inhale 2 Methodi formoterol 8-23 08-[address] (SYMBICORT) 11:53: 00:00 daily. Hos trey 160-4.5 49 :00 l mcg/actuati on inhaler HYDROcodone Yes 1{tbl} QD Take 1 Me thodi -acetaminop 8-[address] hen (NORCO) 09:21: mouth Hospi ta 5-325 mg 49 daily. Max l per tablet Daily Amount: 1 tablet metFORMIN Yes 500mg Q.5D Take 1 Metho di (GLUCOPHAGE 8-[address] ) 500 mg 09:21: (500 mg Hospit a tablet 49 total) by l mouth 2 (two) times a day with meals. albuterol Yes 2{puff} Q6H Inhale 2 M ethodi (PROAIR 8-[address] HFA,PROVENT 09:08: every 6 Hos trey [place] 13 (six) l HFA,VENTOLI hours as N HFA) 90 needed for mcg/actuati wheezing. on inhaler tadalafil 0 Yes 20mg Q24H Take 20 mg Me thodi (CIALIS) 20 8-[address] mg tablet 09:08: daily as Hosp michelle 13 needed. l aspirin Yes 81mg QD Take 81 mg Meth dariela (ECOTRIN) 8-[address] 81 MG 09:08: daily. Hospita enteric 13 l coated tablet omega-3 Yes 1g QD Take 1 g Method i fatty 01-[address] acids-fish 09:08: daily. Hospi ta oil 13 l 300-1,000 mg capsule multivitami Yes 1{tbl} QD Take 1 Me thodi n 8-[address] (THERAGRAN) 09:08: mouth Hospi ta tablet 13 daily. l ferrous 0 Yes 325mg QD Take 325 Metho di sulfate 325 8-[address] (65 FE) MG 09:08: mouth Hospit a tablet 13 daily with l breakfast. clonIDINE Yes .1mg [id number] Take 0.1 [facility]i (CATAPRES) 8-[id number] 0.1 MG 09:08: 3D mouth 3 Hospita tablet 13 (three) l times a day. PRN SPB OVER 180, DIASTOLIC OVER 110 cefepime 0 Yes Methodi (MAXIPIME) 01-18 st 2 gram 00:00: Hospita injection 00 l ceFEPime 0 2021- No Univers (MAXIPIME) 01-1822 ity of 2 g 00:00: 00:00 [place] injection 00 :00 MD [facility] thiamine 0 Yes 100mg QD Take [address] [facility] 100 MG 8-14 mg by [facility] tablet 16:42: mouth Medical 35 daily. Center fluticasone 0 Yes Inhale by [facility] -umeclidin- 8-14 mouth via [place] [facility] vilanter 16:42: inhaler. Medic al (Trelegy 35 Center Ellipta) 200-62.5-25 mcg DsDv rosuvastati 0 Yes 40mg QD Take [address] [facility] n (CRESTOR) 8-14 by mouth Luke s 40 MG 16:42: daily. Medical tablet 35 Center lansoprazol 0 Yes 30mg QD Take [address] [facility] e (PREVACID 8-14 by mouth Luke s SOLUTAB) 30 16:42: daily. Medi nikki MG 35 Center disintegrat ing tablet cefePIME Yes 2g Inject [address] [facility] (MAXIPIME) 8-14 intravenou [place] [facility] 2g in D5W 16:42: sly every Med ical 100 mL 35 8 (eight) Center (V2B) IVPB hours. metroNIDAZO 0 Yes 500mg Inject [address] [facility] LE (FLAGYL) 8-14 mg [facility] IVPB 500 mg 16:42: intravenou Medical in sodium 35 sly every Cente r chloride 8 (eight) 0.9% (NS) hours. 100 mL amLODIPine 0 Yes 10mg QD Take [address] (NORVASC) 8-14 by mouth [facility] 10 MG 16:42: daily. Medical tablet 35 Center cyclobenzap 0 Yes 5mg Take [address] rine 8-14 by mouth 3 [facility] (FLEXERIL) 16:42: (three) Medi nikki 5 MG tablet 35 times Center daily as needed for Muscle spasms. sodium 2021-0 Yes 3mL Q.5D Take 3 mLs [facility] chloride 8-14 by [facility] 0.9 % 16:42: nebulizati Medica l nebulizer 35 on 2 (two) Cent er solution times daily. polyethylen 0 Yes 17g Take [address] e glycol 8-14 by mouth [facility] (GLYCOLAX) 16:42: as needed. M edical 17 gram 35 Center packet acetaminoph 0 Yes pain 500mg Take [address] en 8-14 mg by [facility] (TYLENOL) 16:42: mouth Medical 500 MG 35 every 6 Center tablet (six) hours as needed for Pain. HYDROcodone Yes 1{tbl} QD Take [address] -acetaminop 8-14 tablet by Lico baird hen (NORCO 16:42: mouth Medica l 5-325) 35 daily. Center 5-325 mg per tablet budesonide Yes .25mg Q.5D Take 0.[address] (PULMICORT) 8-14 mg by Dian 0.25 mg/2 16:42: nebulizati Me dical mL 35 on 2 (two) Center nebulizer times solution daily. albuterol Yes 1{ampul Take [address] (ACCUNEB) 8-14 e} ampule by Dian 0.63 mg/3 16:42: nebulizati Me dical mL 35 on as Center nebulizer needed for solution Wheezing. ferrous Yes 325mg Take 325 [facility] sulfate 325 8-14 mg by Dian (65 FE) MG 16:42: mouth Medica l tablet 35 daily with Center breakfast. folic acid Yes 1mg QD Take [address] (FOLVITE) 1 8-14 by mouth Luke s MG tablet 16:42: daily. Medica l 35 Center magnesium Yes 400mg QD Take [address] oxide 8-14 mg by Dian (MAG-OX) 16:42: mouth Medical 400 mg 35 daily. Center (241.3 mg magnesium) tablet aspirin 81 0 2021- No 81mg QD Take [address] MG chewable 01-15-14 by mouth Lico es tablet 13:15: 00:00 daily. Medical 20 :00 Center traMADol-ac 2021-0 2022- No 1{tbl} Take [address] etaminophen 8-14 08-14 tablet by Myah diaz (ULTRACET) 13:09: 00:00 mouth as Me dical 37.5-325 mg 45 :00 needed for Ce nter per tablet Pain. fluticasone 2021-0 2022- No 1{puff} QD Inhale [address] propion-marcela -14 -14 puff by [place] meteroL 13:09: 00:00 mouth via Medi nikki (ADVAIR) 15 :00 inhaler Center 100-50 daily. mcg/dose diskus inhaler albuterol Yes 2{puff} Inhale 2 U nivers (VENTOLIN 8-11 puffs by ity of HFA,PROAIR 12:22: mouth [place] HFA) 90 07 every 6 MD mcg/puff (six) Anderso inhaler hours as n needed. Cancer [place] Trelegy Yes INHALE ONE Meth dariela Ellipta 12-23 (1) PUFF st 200-62.5-25 00:00: BY MOUTH Ho spita mcg blister 00 DAILY. l with device metroNIDAZO 2021- No Cellulitis 500mg 1 tablet Univers LE (FlagyL) 12-22 08 of neck (500 mg) ity of 500 mg 00:00: 04:59 by feeding [place] tablet 00 :00 tube route MD twice Anderso daily for n 21 days. Cancer Center metroNIDAZO 2021- No Cellulitis 500mg 1 tablet Univers LE (FlagyL) 12-22 08 of neck (500 mg) ity of 500 mg 00:00: 04:59 by feeding [place] tablet 00 :00 tube route MD twice Anderso daily for n 21 days. Cancer [place] cyclobenzap Yes Primary 5mg Take 1 U nivers rine - squamous tablet (5 ity of (FLEXERIL) 00:00: cell mg) by [place] 5 mg tablet 00 carcinoma mouth MD of larynx nightly as Arthur rso needed n (muscle Cancer pain). [place] cyclobenzap 2021- No Primary 5mg Take 1 Univers rine 12-16 squamous tablet (5 ity o f (FLEXERIL) 00:00: 00:00 cell mg) [place] 5 mg tablet 00 :00 carcinoma mouth MD of larynx nightly as Arthur rso needed n (muscle Cancer pain). [place] sulfamethox 2021- No Primary 1{tbl} Take 1 Univers azole-trime 12-16 0726 squamous tablet by ity of thoprim 00:00: 04:59 cell mouth [place] (Bactrim 00 :00 carcinoma twice MD DS) 800 of larynx daily for An derso mg-160 mg 10 days. n per tablet [facility] sulfamethox 2021- No Primary 1{tbl} Take 1 Univers azole-trime 12-16 07-26 squamous tablet by ity of thoprim 00:00: 04:59 cell mouth [place] (Bactrim 00 :00 carcinoma twice MD FARNSWORTH) 800 of larynx daily for An derso mg-160 mg 10 days. n per tablet [facility] sodium Yes Chronic 4mL Inhale the Un danae chloride 7 7-08 obstructive contents ity of % 00:00: pulmonary of 1 vial Al as (Hyper-Marcela) 00 disease, (4 mL by) nebulizer not nebulizati Arthur rso solution otherwise on twice n specified daily. [facility] sodium Yes 4mL Inhale 4 Methodi chloride 7-[address] (HYPER-MARCELA) 00:00: Hospit a 7 % 00 l solution for nebulizatio n sodium No Chronic 4mL Inhale the U nivers chloride 7 12-09 11-13 obstructive contents ity of % 00:00: 00:00 pulmonary of 1 vial [place] (Hyper-Marcela) 00 :00 disease, (4 mL by) nebulizer not nebulizati Arthur rso solution otherwise on twice n specified daily. [facility] predniSONE 2021- No Chronic 40mg Take 2 U nivers (DELTASONE) 12-09-21 obstructive tablets ity of 20 mg 00:00: 04:59 pulmonary (40 mg) by [place] tablet 00 :00 disease, mouth MD not daily for Anderso otherwise 5 days. n specified Crush and Cance r administer Center through feeding tube predniSONE 2021- No Chronic 40mg Take 2 U nivers (DELTASONE) 12-09 07-21 obstructive tablets ity of 20 mg 00:00: 04:59 pulmonary (40 mg) by [place] tablet 00 :00 disease, mouth MD not daily for Anderso otherwise 5 days. n specified Crush and Cance r administer Center through feeding tube polyethylen Yes Constipatio TAKE ONE Univers e glycol 6-20 n, not (1) CAPFUL ity of (GLYCOLAX) 00:00: otherwise MIXED WITH [place] 17 specified WATER BY gram/dose MOUTH 3 Anderso powder TIMES n DAILY. Cancer Center polyethylen Yes Constipatio TAKE ONE Univers e glycol 6-20 n, not (1) CAPFUL ity of (GLYCOLAX) 00:00: otherwise MIXED WITH [place] 17 00 specified WATER BY gram/dose MOUTH 3 Anderso powder TIMES n DAILY. Cancer Center amoxicillin 2021- No Cellulitis 875mg Take 10.9 Univers -clavulanat 6-11 06-19 of neck mL (875 i ty of e 00:00: 04:59 mg) by [place] (AUGMENTIN) 00 :00 mouth MD 400 mg-57 twice Anderso mg/5 mL daily for n suspension 7 days. Cancer Center amoxicillin 2021- No Cellulitis 875mg Take 10.9 Univers -clavulanat 6-11 06-19 of neck mL (875 i ty of e 00:00: 04:59 mg) by [place] (AUGMENTIN) 00 :00 mouth MD 400 mg-57 twice Anderso mg/5 mL daily for n suspension 7 days. Cancer Center nut.tx.gluc Yes Laryngophar 375mL Give 375 Univers intol,lf,so 6-10 yngeal mL per ity of y/fiber 00:00: reflux G-tube 4 [place] (diabetis[place] 00 (four) MD amena LISA) times a Anderso enteral day. n tube Cancer feeding Center acetaminoph Yes Shortness 500mg Take 1 Univers en (Tylenol 6-10 of breath tablet i ty of Extra 00:00: (500 mg) [place] Strength) 00 by mouth MD 500 mg every 6 Anderso tablet (six) n hours as Cancer needed for Center mild pain, moderate pain or headaches. nut.tx.gluc 2021- No Laryngophar 375mL Give 375 Univers intol,lf,so 6-10 11-13 yngeal mL per ity of y/fiber 00:00: 00:00 reflux G-tube 4 Al as (diabetisou 00 :00 (four) MD amena LISA) times a Anderso enteral day. n tube Cancer feeding Center acetaminoph 2021- No Shortness 500mg Take 1 Univers en (Tylenol 6-10 11-13 of breath tablet ity of Extra 00:00: 00:00 (500 mg) [place] Strength) 00 :00 by mouth MD 500 mg every 6 Anderso tablet (six) n hours as Cancer needed for Center mild pain, moderate pain or headaches. traMADol Yes Oral 50mg 1 tablet Unive rs (ULTRAM) 50 6-09 mucositis (50 mg) by ity of mg tablet 00:00: due to feeding Al as 00 radiation tube route MD every 6 Anderso (six) n hours as Cancer needed for Center severe pain. HYDROcodone Yes Oral 1{tbl} 1-2 Univ ers -acetaminop 609 mucositis tablets by ity of hen (NORCO) 00:00: due to feeding [place] 5 mg-325 mg 00 radiation tube route MD per tablet every 8 Chucky o (eight) n hours as Cancer needed for Center severe pain. ondansetron Yes Primary 8mg 1 tablet Univers (ZOFRAN) 8 6-09 squamous (8 mg) by ity of mg tablet 00:00: cell feeding [place] 00 carcinoma tube route MD of larynx every 8 Anderso (eight) n hours as Cancer needed for Center nausea or vomiting. ondansetron Yes Primary 8mg 1 tablet Univers (ZOFRAN) 8 6-09 squamous (8 mg) by ity of mg tablet 00:00: cell feeding [place] 00 carcinoma tube route MD of larynx every 8 Anderso (eight) n hours as Cancer needed for Center nausea or vomiting. HYDROcodone 2021- No Oral .5{tbl} 0.5-1 U nivers -acetaminop 11-10 10-05 mucositis tablets by ity of hen (NORCO) 00:00: 00:00 due to feeding [place] 5 mg-325 mg 00 :00 radiation tube route MD per tablet every 8 [place] o (eight) n hours as Cancer needed for Center severe pain. traMADol 2021- No Oral 50mg 1 tablet Univ ers (ULTRAM) 50 11-10 09-26 mucositis (50 mg) by ity of mg tablet 00:00: 00:00 due to feeding [place] 00 :00 radiation tube route MD every 6 Anderso (six) n hours as Cancer needed for Center severe pain. ondansetron 2021- No Primary 8mg 1 tablet Univers (ZOFRAN) 8 - 06-09 squamous (8 mg) by ity of mg tablet 00:00: 00:00 cell feeding [place] 00 :00 carcinoma tube route MD of larynx every 8 Anderso (eight) n hours as Cancer needed for Center nausea or vomiting. ondansetron 2021- No Primary 8mg 1 tablet Univers (ZOFRAN) 8 11-10 06-09 squamous (8 mg) by ity of mg tablet 00:00: 00:00 cell feeding [place] 00 :00 carcinoma tube route MD of larynx every 8 Anderso (eight) n hours as Cancer needed for Center nausea or vomiting. folic acid Yes 1mg QD Take 1 Metho di (FOLVITE) 1 -07 tablet (1 st MG tablet 00:00: mg total) Hos trey 00 by mouth l daily. fluticasone Yes Chronic 1{puff} Inhale 1 Univers -umeclidin- 06 obstructive puff by ity of vilanter 00:00: pulmonary mouth Al as (Trelegy 00 disease, daily. MD Mustafa) not Anderso 200-62.5-25 otherwise n mcg dsdv specified Cancer Center fluticasone 2021- No Chronic 1{puff} Inhale 1 Univers -umeclidin- 11-07 11-13 obstructive puff by ity of vilanter 00:00: 00:00 pulmonary mouth [place] (Trelegy 00 :00 disease, daily. MD Mustafa) not Anderso 200-62.5-25 otherwise n mcg dsdv specified Cancer [place] sodium 2021- No Chronic 4mL Inhale the U nivers chloride 7 11-07-08 obstructive contents ity of % 00:00: 00:00 pulmonary of 1 vial [place] (Hyper-Marcela) 00 :00 disease, (4 mL by) nebulizer not nebulizati Arthur rso solution otherwise on twice n specified daily. Cancer Center sodium 2021- No Chronic 4mL Inhale the U nivers chloride 7 11-07-08 obstructive contents ity of % 00:00: 00:00 pulmonary of 1 vial [place] (Hyper-Marcela) 00 :00 disease, (4 mL by) nebulizer not nebulizati Arthur rso solution otherwise on twice n specified daily. [facility] losartan Essential 100mg Give 1 Univers (COZAAR) 10-28 hypertensio tablet i ty of 100 mg 00:00: 04:59 n (100 mg) [place] tablet 00 :00 by feeding MD tube route Anderso daily for n 30 days. [facility] losartan No Essential 100mg Give 1 Univers (COZAAR) 10-28 hypertensio tablet i ty of 100 mg 00:00: 04:59 n (100 mg) [place] tablet 00 :00 by feeding MD tube route Anderso daily for n 30 days. [facility] budesonide- 2021- No 2{puff} Inhale 2 Univers formoterol 10-27-26 puffs by ity of (SYMBICORT) 18:21: 00:00 mouth [place] 160-4.5 10 :00 twice MD mcg/actuati daily. Chucky o on inhaler Patient n usually Cancer does it Center once a day at night. budesonide- 2021- No 2{puff} Inhale 2 Univers formoterol 10-27 05-26 puffs by ity of (SYMBICORT) 18:21: 00:00 mouth [place] 160-4.5 10 :00 twice MD mcg/actuati daily. [place] o on inhaler Patient n usually Cancer does it Center once a day at night. gabapentin Yes 300mg [id number] Take 1 [facility]i (NEURONTIN) 10-[id number] 300 mg 00:00: 3D (300 mg Hospita capsule 00 total) by l mouth 3 (three) times a day. gabapentin 2021- No TAKE ONE Un danae (NEURONTIN) 10-27 (1) ity of 300 mg 00:00: 00:00 CAPSULE(S) [place] capsule 00 :00 BY MOUTH THREE Anderso TIMES A n DAY. [facility] nebulizer 2021- No Mucopurulen 1U 1 Units by Univers accessories 5-26 08-25 t chronic miscellane ity of (Reusable 00:00: 04:59 bronchitis ous route [place] Nebulizer 00 :00 as needed MD Kit) kit (per Anderso nebulizer n schedule.) Cancer for up to Center 90 days. arformotero 2021- No Chronic 15ug Inhale 1 Univers l (BROVANA) 10-27 bronchitis, vial (15 ity of 15 mcg/2 mL 00:00: 04:59 not mcg) by [place] nebulizer 00 [...] of (DUO-NEB) 00:00: 04:59 not mL) by [place] 0.5 mg-2.5 00 :00 otherwise nebulizati MD mg/3 mL specified on every 4 A nderso nebulizer (four) n solution hours for Cancer 90 days. [place] nebulizer 2021- No Mucopurulen 1U 1 Units by Univers accessories 10-27 t chronic miscellane ity of (Reusable 00:00: 04:59 bronchitis ous route [place] Nebulizer 00 :00 as needed MD Kit) kit (per Anderso nebulizer n schedule.) Cancer for up to Center 90 days. arformotero 2021-2021- No Chronic 15ug Inhale 1 Univers l (BROVANA) 10-27 bronchitis, vial (15 ity of 15 mcg/2 mL 00:00: 04:59 not mcg) by [place] nebulizer 00 [...] n solution hours for Cancer 90 days. [place] sodium 2021- No Chronic 4mL Inhale 4 Uni vers chloride 3 10-27 bronchitis, mL by ity of % nebulizer 00:00: 00:00 not nebulizati [place] solution 00 :00 otherwise on twice MD specified daily for Jorge so 90 days. n [facility] sodium 2021- No Chronic 4mL Inhale 4 Uni vers chloride 3 10-27 bronchitis, mL by ity of % nebulizer 00:00: 00:00 not nebulizati [place] solution 00 :00 otherwise on twice MD specified daily for Jorge so 90 days. [facility] levoFLOXaci 2021- No Chronic 750mg Give 30 mL Univers n 10-27 bronchitis, (750 mg) ity of (LEVAQUIN) 00:00: 04:59 not per G-tube [place] 250 mg/10 00 :00 otherwise daily for MD mL solution specified 5 doses. [facility] levoFLOXaci 2021- No Chronic 750mg Give 30 mL Univers n 10-27 bronchitis, (750 mg) ity of (LEVAQUIN) 00:00: 04:59 not per G-tube [place] 250 mg/10 00 :00 otherwise daily for MD mL solution specified 5 doses. [facility] arformotero 2021- No Chronic 15ug Inhale 1 Univers l (BROVANA) 10-27 bronchitis, vial (15 ity of 15 mcg/2 mL 00:00: 00:00 not mcg) by [place] nebulizer 00 :00 otherwise nebulizati MD solution specified on twice An derso daily for n 90 days. Cancer Center budesonide 2021- No Chronic .5mg Inhale 1 Univers (PULMICORT) 10-27- bronchitis, vial (0.5 ity of 0.5 mg/2 mL 00:00: 00:00 not mg) by Al as nebulizer 00 :00 otherwise nebulizati MD solution specified on every An derso 12 n (twelve) Cancer hours for Center 90 days. ipratropium 2021-2021- No Chronic 3mL Inhale 1 Univers -albuterol 10-27 bronchitis, vial (3 ity of (DUO-NEB) 00:00: 00:00 not mL) by Donn 0.5 mg-2.5 00 :00 otherwise nebulizati MD mg/3 mL specified on every 4 A nderso nebulizer (four) n solution hours for Cancer 90 days. [place] sodium 2021- No Chronic 4mL Inhale 4 Uni vers chloride 3 10-27- bronchitis, mL by ity of % nebulizer 00:00: 00:00 not nebulizati [place] solution 00 :00 otherwise on twice MD specified daily for Jorge so 90 days. n Cancer Center arformotero 2021- No Chronic 15ug Inhale 1 Univers l (BROVANA) 10-27- bronchitis, vial (15 ity of 15 mcg/2 mL 00:00: 00:00 not mcg) by [place] nebulizer 00 :00 otherwise nebulizati MD solution specified on twice An derso daily for n 90 days. Cancer [place] budesonide 2021- No Chronic .5mg Inhale 1 Univers (PULMICORT) 10-27- bronchitis, vial (0.5 ity of 0.5 mg/2 mL 00:00: 00:00 not mg) by Al as nebulizer 00 :00 otherwise nebulizati MD solution specified on every An derso 12 n (twelve) Cancer hours for Center 90 days. ipratropium 2021-2021- No Chronic 3mL Inhale 1 Univers -albuterol 10-27- bronchitis, vial (3 ity of (DUO-NEB) 00:00: 00:00 not mL) by [place] 0.5 mg-2.5 00 :00 otherwise nebulizati MD mg/3 mL specified on every 4 A nderso nebulizer (four) n solution hours for Cancer 90 days. [place] sodium 2021- No Chronic 4mL Inhale 4 Uni vers chloride 3 - 05-26 bronchitis, mL by ity of % nebulizer 00:00: 00:00 not nebulizati [place] solution 00 :00 otherwise on twice MD specified daily for Jorge so 90 days. [facility] ferrous Yes Melena 325mg 1 tablet Uni vers sulfate 5-22 (325 mg) ity of (iron) 325 00:00: by feeding [place] mg (65 mg 00 tube route MD elemental daily. Anderso iron per n tablet) Cancer [email or web address]] folic acid Yes Hypomagnese 1mg 1 tablet Univers (FOLVITE) 1 5-22 kaylen (1 mg) by ity of mg tablet 00:00: feeding [place] 00 tube route MD daily. [facility] magnesium Yes Hypomagnese 500mg 1 tablet Univers oxide 500 5-22 kaylen (500 mg) ity of mg tablet 00:00: by feeding [place] 00 tube route MD daily. [facility] thiamine Yes Hypomagnese 100mg 1 tablet Univers (VITAMIN 5-22 kaylen (100 mg) ity of B-1) 100 mg 00:00: by feeding [place] tab tablet 00 tube route MD daily. [facility] rosuvastati Yes Chronic 40mg 1 tablet Univers n (CRESTOR) 5-22 diastolic (40 mg) by ity of 40 mg 00:00: heart feeding [place] tablet 00 failure tube route at [facility]. [facility] ferrous Yes Melena 325mg 1 tablet Uni vers sulfate 5-22 (325 mg) ity of (iron) 325 00:00: by feeding [place] mg (65 mg 00 tube route MD elemental daily. Anderso iron per n tablet) Cancer tablet [place] folic acid Yes Hypomagnese 1mg 1 tablet Univers (FOLVITE) 1 5-22 kaylen (1 mg) by ity of mg tablet 00:00: feeding [place] 00 tube route daily. [facility] magnesium Yes Hypomagnese 500mg 1 tablet Univers oxide 500 5-22 kaylen (500 mg) ity of mg tablet 00:00: by feeding [place] 00 tube route daily. [facility] thiamine Yes Hypomagnese 100mg 1 tablet Univers (VITAMIN 5-22 kaylen (100 mg) ity of B-1) 100 mg 00:00: by feeding [place] tab tablet 00 tube route daily. [facility] rosuvastati Yes Chronic 40mg 1 tablet Univers n (CRESTOR) 5-22 diastolic (40 mg) by ity of 40 mg 00:00: heart feeding [place] tablet 00 failure tube route at [facility] bedtime. [facility] metoprolol- 2021- No 1 tablet U nivers hydrochloro 10-1514 with food it y of thiazide 01:40: 00:00 [place] (LOPRESSOR 05 :00 HCT) 50-25 Anderso mg per n tablet [facility] metoprolol- 2021- No 1 tablet U nivers hydrochloro 10-15-14 with food it y of thiazide 01:40: 00:00 [place] (LOPRESSOR 05 :00 HCT) 50-25 Anderso mg per n tablet [facility] losartan 2021- No 1 tablet Univ ers (Cozaar) 10-15-14 ity of 100 mg 01:39: 00:00 [place] tablet 56 :00 [facility] losartan 2021- No 1 tablet Univ ers (Cozaar) 10-15 05-14 ity of 100 mg 01:39: 00:00 [place] tablet 56 :00 [facility] Nicoderm CQ Yes Nicotine Apply 1-2 Univers 21 mg/24 hr - dependence patches to ity of transdermal 00:00: [place] and [place] patch 00 change patch Jeanmarie daily as n directed [facility] tobacco cessation (alternate sites). Nicoderm CQ 0 2021- No Nicotine Apply 1-2 Univers 21 mg/24 hr -04 12-22 dependence patches to ity of transdermal 00:00: 00:00 skin and [place] patch 00 :00 change patch Andersnic daily as n directed [facility] tobacco cessation (alternate sites). predniSONE 2021- No TAKE ONE Un danae (DELTASONE) 10-05 (1) ity of 10 mg 00:00: 00:00 TABLET(S) [place] tablet 00 :00 BY MOUTH MD TWICE A Anderso DAY. n [facility] levoFLOXaci 2021- No TAKE ONE U nivers n 10-05 (1) ity of (LEVAQUIN) 00:00: 00:00 TABLET(S) [place] 750 mg 00 :00 BY MOUTH MD tablet ONCE A [place]o DAY. n [facility] predniSONE 2021- No TAKE ONE Un danae (DELTASONE) 10-05 (1) ity of 10 mg 00:00: 00:00 TABLET(S) [place] tablet 00 :00 BY MOUTH MD TWICE A [place] DAY. n [facility] Center levoFLOXaci 2021- No TAKE ONE U nivers n 10-05 (1) ity of (LEVAQUIN) 00:00: 00:00 TABLET(S) [place] 750 mg 00 :00 BY MOUTH MD tablet ONCE A [place]o DAY. n Cancer Center methylPREDN 2021- No USE Uni vers ISolone 09-30 DIRECTED. ity of (MEDROL 00:00: 00:00 [place] DOSEPACK) 4 00 :00 MD mg tablet [place] [facility] [place] methylPREDN 2021- No USE Uni vers ISolone 09-30 DIRECTED. ity of (MEDROL 00:00: 00:00 [place] DOSEPACK) 4 00 :00 MD mg tablet Anderso n [facility] [place] lansoprazol Yes PLACE ONE U nivers e (PREVACID 4-21 (1) TABLET it y of SOLUTAB) 30 00:00: IN SYRING[place], disintegrat DRAW UP 10 An derso ing tablet ML(S) n AMOUNT OF Cancer WATER, Center GENTLY SHAKE, ADMINISTER VIA TUBE WITHIN 15 MINS, REFILL [place] WITH [address] ONE U nivers e (PREVACID 4-21 (1) TABLET it y of SOLUTAB) 30 00:00: IN [place] MG 00 SYRINGE, disintegrat DRAW UP 10 An derso ing tablet ML(S) n AMOUNT OF Cancer WATER, Center GENTLY SHAKE, ADMINISTER VIA TUBE WITHIN 15 MINS, REFILL SYRINGE WITH 5 nutritional 2021- No Aspiration 375mL Give Univers supplement 08-31- pneumonia 375-500 mL ity of (nutren 00:00: 00:00 per [place] 1.5) 00 :00 NG-tube 3 MD enteral (three) Anderso tube times a n feeding day with Cancer meals. [place] pantoprazol 2021- No Aspiration 40mg Take 1 Univers e 08-31 pneumonia tablet (40 ity of (PROTONIX) 00:00: 00:00 mg) by [place] 40 mg EC 00 :00 mouth MD tablet every [place] morning n before Cancer breakfast. [place] nutritional 2021- No Aspiration 375mL Give Univers supplement 08-31 pneumonia 375-500 mL ity of (nutren 00:00: 00:00 per [place] 1.5) 00 :00 NG-tube 3 MD enteral (three) Anderso tube times a n feeding day with Cancer meals. [place] pantoprazol 2021- No Aspiration 40mg Take 1 Univers e 08-31 pneumonia tablet (40 ity of (PROTONIX) 00:00: 00:00 mg) by [place] 40 mg EC 00 :00 mouth MD tablet every [place] morning n before Cancer breakfast. [place] tadalafil 2021- No 20mg Take 20 mg U nivers (CIALIS) 20 08-29 by mouth. it y of mg tablet 13:49: 00:00 [place] 25 :00 MD Jeanmarie patel [facility] tadalafil 0 2021- No 20mg Take 20 mg U nivers (CIALIS) 20 08-29 by mouth. it y of mg tablet 13:49: 00:00 [place] 25 :00 MD Jeanmarie patel [facility] gabapentin 2021- No Neuropathic TAKE ONE Univers (NEURONTIN) 08-22 pain (1) ity of 300 mg 00:00: 00:00 CAPSULE(S) [place] capsule 00 :00 BY MOUTH THREE Anderso TIMES A n DAY. Cancer Center gabapentin 2021- No Neuropathic TAKE ONE Univers (NEURONTIN) 3- 05-26 pain (1) ity of 300 mg 00:00: 00:00 CAPSULE(S) [place] capsule 00 :00 BY MOUTH THREE Anderso TIMES A n DAY. Cancer Center fenofibrate Yes TAKE ONE Me thodi (TRICOR) 3-14 (1) st 145 MG 00:00: TABLET(S) Hospit a tablet 00 BY MOUTH l ONCE A DAY. HYDROcodone 2021- No Oral 1{tbl} Take 1-2 Univers -acetaminop 3-13 06-09 mucositis tablets by ity of hen ([place]) 00:00: 00:00 due to mouth [place] 5 mg-325 mg 00 :00 radiation every 8 MD per tablet (eight) Chucky o hours as n needed for Cancer severe Center pain. HYDROcodone 2021- No Oral 1{tbl} Take 1-2 Univers -acetaminop 3-13 06-09 mucositis tablets by ity of song ([place]) 00:00: 00:00 due to mouth [place] 5 mg-325 mg 00 :00 radiation every 8 MD per tablet (eight) [place] o hours as n needed for Cancer severe Center pain. Nicoderm CQ 2021- No Nicotine Apply 1-2 Univers 21 mg/24 hr 3- 05-11 dependence patches to ity of transdermal 00:00: 00:00 skin and [place] patch 00 :00 change patch Anderso daily as n directed [facility] for [facility] tobacco cessation (alternate sites). Nicoderm CQ 2021- No Nicotine Apply 1-2 Univers 21 mg/24 hr 3- 05-11 dependence patches to ity of transdermal 00:00: 00:00 skin and [place] patch 00 :00 change patch Anderso daily as n directed [facility] for [facility] tobacco cessation (alternate sites). traMADol 2021- No Oral TAKE ONE Univ ers (ULTRAM) 50 2- 06-09 mucositis (1) TABLET ity of mg tablet 00:00: 00:00 due to (50 MG) BY [place] 00 :00 radiation MOUTH MD EVERY 4 Anderso (FOUR) n HOURS Cancer NEEDED FOR Center MODERATE PAIN OR SEVERE PAIN. traMADol 2021- No Oral TAKE ONE Univ ers (ULTRAM) 50 07-25 mucositis (1) TABLET ity of mg tablet 00:00: 00:00 due to (50 MG) BY [place] 00 :00 radiation MOUTH MD EVERY 4 Anderso (FOUR) n HOURS Cancer NEEDED FOR Center MODERATE PAIN OR SEVERE PAIN. amLODIPine Yes Essential 10mg Give 1 Univers (NORVASC) 07-13 hypertensio tablet (10 ity of 10 mg 00:00: n mg) per [place] tablet 00 NG-tube MD daily. [facility] thiamine Yes 100mg 1 tablet Meth dariela 100 MG 07-13 ([address] tablet 00:00: total) by Hospit a 00 feeding l tube route. amLODIPine Yes Essential 10mg Give 1 Univers (NORVASC) 07-13 hypertensio tablet (10 ity of 10 mg 00:00: n mg) per [place] tablet 00 NG-tube MD daily. [facility] folic acid 2021- No Folate 1mg Take 1 Un danae (FOLVITE) 1 07-13 deficiency tablet (1 ity of mg tablet 00:00: 00:00 mg) by [place] 00 :00 mouth MD daily. [facility] thiamine 2021- No Hypophospha 100mg Take 1 Univers (VITAMIN 07-13 temia tablet ity of B-1) 100 mg 00:00: 00:00 (100 mg) [place] tab tablet 00 :00 by mouth MD daily. [facility] folic acid 2021- No Folate 1mg Take 1 Un danae (FOLVITE) 1 07-13 deficiency tablet (1 ity of mg tablet 00:00: 00:00 mg) by [place] 00 :00 mouth MD daily. [facility] thiamine 2021- No Hypophospha 100mg Take 1 Univers (VITAMIN 07-13 temia tablet ity of B-1) 100 mg 00:00: 00:00 (100 mg) [place] tab tablet 00 :00 by mouth MD daily. Andreginaldo n [facility] amoxicillin 2021- No Aspiration 875mg Take 1 Univers -clavulanat 2-07-12 pneumonia tablet ity of e 00:00: 00:00 (875 mg) [place] (Augmentin) 00 :00 by mouth 875 mg-125 daily for [place] rso mg per 2 doses. n tablet [facility] Center amoxicillin 2021- No Aspiration 875mg Take 1 Univers -clavulanat 2-07-12 pneumonia tablet ity of e 00:00: 00:00 (875 mg) [place] (Augmentin) 00 :00 by mouth 875 mg-125 daily for [place] r[place] mg per 2 doses. n tablet [facility] Center potassium-s 2021- No Hypophospha 1{packe Give [...] Hypokalemia 40meq Give 30 mL Univers chloride 07-1211 (40 mEq) ity of (KAYCIEL) 00:00: 00:00 per [place] 20 mEq/15 00 :00 NG-tube MD mL solution daily. Chucky o [facility] potassium-s 2021- No Hypophospha 1{packe Give 1 Univers odium 2 05-11 temia t} packet per ity of phosphates [...] Hypokalemia 40meq Give 30 mL Univers chloride 2-08 05-11 (40 mEq) ity of (KAYCIEL) 00:00: 00:00 per [place] 20 mEq/15 00 :00 NG-tube MD mL solution daily. Chucky o n [facility] [place] amoxicillin 2021- No Aspiration 875mg Take 1 Univers -clavulanat 2-01 03-12 pneumonia tablet ity of e 00:00: 05:59 (875 mg) [place] (Augmentin) 00 :00 by mouth 875 mg-125 twice [place]o mg per daily for n tablet 5 doses. [facility] amoxicillin 2021- No Aspiration 875mg Take 1 Univers -clavulanat 2-01 03- pneumonia tablet ity of e 00:00: 05:59 (875 mg) [place] (Augmentin) 00 :00 by mouth 875 mg-125 twice [place]o mg per daily for n tablet 5 doses. [facility] hydroCHLORO Yes 12.5mg QD Take 1 Me thodi thiazide 1-[address] (MICROZIDE) 00:00: (12.5 mg Ho spita 12.5 mg 00 total) by l capsule mouth daily. cloNIDine 2021- No Hypertensio .1mg Take 1 Univers HCl 1-28 05-14 n tablet ity of (Catapres) 00:00: 00:00 (0.1 mg) [place] 0.1 mg 00 :00 by mouth 3 MD tablet (three) Anderso times a n day as Cancer needed for Center high blood pressure (Systolic blood pressure over 180, diastolic over 110). cloNIDine 2021- No Hypertensio .1mg Take 1 Univers HCl 1-28 05-14 n tablet ity of (Catapres) 00:00: 00:00 (0.1 mg) [place] 0.1 mg 00 :00 by mouth 3 MD tablet (three) Anderso times a n day as Cancer needed for Center high blood pressure (Systolic blood pressure over 180, diastolic over 110). polyethylen 2021- No Constipatio 17g Take 17 g Univers e glycol 1- 05-11 n, not by mouth 3 it y of (GLYCOLAX) 00:00: 00:00 otherwise (three) [place] 17 00 :00 specified times a MD gram/dose day[facility] polyethylen 2021- No Constipatio 17g Take 17 g Univers e glycol 06-29 05-11 n, not by mouth 3 it y of (GLYCOLAX) 00:00: 00:00 otherwise (three) [place] 17 00 :00 specified times a MD gram/dose day. Anderso powder [facility] sennadocus 2021- No Constipatio 1{tbl} Take 1-3 Univers ate 06-29 03-30 n, not tablets by ity of (SENOKOT-S) 00:00: 00:00 otherwise mouth [place] 8.6 mg-50 00 :00 specified twice MD mg tablet daily. [facility]- No Constipatio 1{tbl} Take 1-3 Univers ate 06-29 03-30 n, not tablets by ity of (SENOKOT-S) 00:00: 00:00 otherwise mouth [place] 8.6 mg-50 00 :00 specified twice MD mg tablet daily. [facility] glycopyrrol 2021- No Thick 1mg Take 1 Un danae ate 06-29-08 sputum tablet (1 ity of (RobinuL) 1 00:00: 00:00 mg) by Al as mg tablet 00 :00 mouth 4 MD (four) Anderso times a n day. [facility] glycopyrrol 2021- No Thick 1mg Take 1 Un danae ate 06-29-08 sputum tablet (1 ity of (RobinuL) 1 00:00: 00:00 mg) by Al as mg tablet 00 :00 mouth 4 MD (four) [place]o times a n day. [facility] rosuvastati 2021- No daily. Uni vers n (CRESTOR) 06-25-22 ity of 40 mg 00:00: 00:00 [place] tablet 00 :00 MD Jeanmarie patel [facility] rosuvastati 2021- No daily. Uni vers n (CRESTOR) 06-25-22 ity of 40 mg 00:00: 00:00 [place] tablet 00 :00 MD Jeanmarie patel [facility] losartan 2022-0 Yes 100mg QD Take 1 Method i (Cozaar) 06-[address] 100 MG 00:00: (100 mg Hospita tablet 00 total) by l mouth daily. rosuvastati 2022- No 40mg QD Take 1 Met hodi n (CRESTOR) 06-24 tablet (40 s t 40 MG 00:00: 05:59 mg total) Hospit a tablet 00 :00 by mouth l daily. losartan 2021- No daily. Univer s (COZAAR) 06-24 ity of 100 mg 00:00: 00:00 [place] tablet 00 :00 [facility] losartan 2021- No daily. Univer s (COZAAR) 06-24 ity of 100 mg 00:00: 00:00 [place] tablet 00 :[facility]- No Hypertensio .1mg Take 1 Univers HCl 06-22 n tablet ity of (Catapres) 00:00: 00:00 (0.1 mg) [place] 0.1 mg 00 :00 by mouth 3 MD tablet (three) Anderso times a n day as Cancer needed for Center high blood pressure (Systolic blood pressure over 180, diastolic over 110). cloNIDine 2021- No Hypertensio .1mg Take 1 Univers HCl 06-22 n tablet ity of (Catapres) 00:00: 00:00 (0.1 mg) [place] 0.1 mg 00 :00 by mouth 3 MD tablet (three) Anderso times a n day as Cancer needed for Center high blood pressure (Systolic blood pressure over 180, diastolic over 110). traMADoL Yes 50mg 1 tablet Metho di (ULTRAM) 50 06-15 ([address] mg tablet 00:00: total) by Hos trey 00 feeding l tube route. magnesium Yes 500mg 500 mg by [place] thodi oxide 500 06-[address] mg tablet 00:00: tube Hospita 00 route. l lidocaine 2021- No Oral 5mL Swish and Un danae (XYLOCAINE) 06-15 05-26 mucositis swallow 5 ity of 20 mg/mL 00:00: 00:00 due to mL every 4 [place] (2%) 00 :00 radiation (four) MD viscous hours as Anderso solution needed n (throat Cancer pain). [place] lidocaine 2021- No Oral 5mL Swish and Un danae (XYLOCAINE) 06-15 mucositis swallow 5 ity of 20 mg/mL 00:00: 00:00 due to mL every 4 [place] (2%) 00 :00 radiation (four) MD viscous hours as Anderso solution needed n (throat Cancer pain). [place] magnesium 2021- No Hypomagnese 500mg Take 1 Univers oxide 500 06-15 kaylen tablet ity of mg tablet 00:00: 00:00 (500 mg) Al as 00 :00 by mouth MD daily. [facility] magnesium 2021- No Hypomagnese 500mg Take 1 Univers oxide 500 06-15 kaylen tablet ity of mg tablet 00:00: 00:00 (500 mg) Al as 00 :00 by mouth MD daily. [facility] traMADol 2021- No Oral 50mg Take 1 Univer s (ULTRAM) 50 06-15 mucositis tablet (50 ity of mg tablet 00:00: 00:00 due to mg) by Al as 00 :00 radiation mouth MD every 4 Anderso (four) n hours as Cancer needed for Center moderate pain or severe pain. traMADol 2021- No Oral 50mg Take 1 Univer s (ULTRAM) 50 06-15 mucositis tablet (50 ity of mg tablet 00:00: 00:00 due to mg) by Al as 00 :00 radiation mouth MD every 4 Anderso (four) n hours as Cancer needed for Center moderate pain or severe pain. guaiFENesin 2021- No Thick 200mg Take 10 mL Univers (ROBITUSSIN 06-13 sputum (200 mg) i ty of ) 100 mg/5 00:00: 00:00 by mouth 4 [place] mL syrup 00 :00 (four) MD times a Anderso day. [facility] guaiFENesin 2021- No Thick 200mg Take 10 mL Univers (ROBITUSSIN 06-13 sputum (200 mg) i ty of ) 100 mg/5 00:00: 00:00 by mouth 4 [place] mL syrup 00 :00 (four) MD times a [place]o day. n [facility] 2021- No Nicotine Apply 2 Univers 21 mg/24 hr 06-08 dependence patch to ity of transdermal 00:00: 00:00 skin and [place] patch 00 :00 change MD patch Anderso daily as n directed Cancer for Center tobacco cessation (alternate sites). Nicoderm CQ 2021- No Nicotine Apply 2 Univers 21 mg/24 hr 06-08 dependence patch to ity of transdermal 00:00: 00:00 skin and [place] patch 00 :00 change MD patch Anderso daily as n directed Cancer for Center tobacco cessation (alternate sites). triamcinolo 2020-06- No Radiation 1{appli Apply 1 Univers ne 07-2611 dermatitis cation} applicatio ity of (KENALOG) 00:00: 00:00 n [place] ointment 00 :00 topically MD 0.1% to Anderso affected n area(s) Cancer twice Center daily. triamcinolo 2020-06- No Radiation 1{appli Apply 1 [...] Anderso times a n day. Cancer Center gabapentin 2020-06- No Neuropathic 300mg Take 1 Univers (Neurontin) 07-26 pain capsule ity of 300 mg 00:00: 00:00 (300 mg) [place] capsule 00 :00 by mouth 3 MD (three) Anderso times a n day. Cancer Center ondansetron 2020-06- No Primary 8mg Take 1 Univers (ZOFRAN) 8 2-14 06-09 squamous tablet (8 ity of mg tablet 00:00: 00:00 cell mg) by [place] 00 :00 carcinoma mouth MD of larynx every 8 Anderso (eight) n hours as Cancer needed for Center nausea or vomiting. ondansetron 2020-06- No Primary 8mg Take 1 Univers (ZOFRAN) 8 07-1809 squamous tablet (8 ity of mg tablet 00:00: 00:00 cell mg) by [place] 00 :00 carcinoma mouth MD of larynx every 8 Anderso (eight) n hours as Cancer needed for Center nausea or vomiting. prochlorper 2020-06- No Primary 10mg Take 1 Univers azine 07-18 squamous tablet (10 ity of (Compazine) 00:00: 00:00 cell mg) by Al as 10 mg 00 :00 carcinoma mouth MD tablet of larynx every 6 Jorge so (six) n hours as Cancer needed for Center nausea or vomiting (if not controlled by Ondansetro n). prochlorper 2020-06- No Primary 10mg Take 1 Univers azine 07-18 squamous tablet (10 ity of (Compazine) 00:00: 00:00 cell mg) by Al as 10 mg 00 :00 carcinoma mouth MD tablet of larynx every 6 Jorge so (six) n hours as Cancer needed for Center nausea or vomiting (if not controlled by Ondansetro n). fenofibrate 2020-06- No TAKE ONE M ethodi (TRICOR) 07-10 (1) st 145 MG 00:00: 00:00 TABLET(S) Hospi ta tablet 00 :00 BY MOUTH l ONCE A DAY. Nicoderm CQ 2020-06- No Nicotine Apply 1 Univers 21 mg/24 hr 07-10- dependence patch to ity of transdermal 00:00: 00:00 skin and [place] patch 00 :00 change MD patch Anderso daily as n directed Cancer for Center tobacco cessation (alternate sites). Nicoderm CQ 2020-06- No Nicotine Apply 1 Univers 21 mg/24 hr 07-10-05 dependence patch to ity of transdermal 00:00: 00:00 skin and [place] patch 00 :00 change MD patch Anderso daily as n directed Cancer for Center tobacco cessation (alternate sites). fluoride, 2020-06 Yes Accretion Apply to Univers sodium, 2-03 on teeth teeth ity of (PREVIDENT) 00:00: twice [place] 1.1 % 00 daily. dental [place] cream teeth with n cream and Cancer spit out Center as directed. (Do not eat, drink or rinse for 30 minutes). fluoride, 2020-06 Yes Accretion Apply to Univers sodium, 2-03 on teeth teeth ity of (PREVIDENT) 00:00: twice [place] 1.1 % 00 daily. dental [place] cream teeth with n cream and Cancer spit out Center as directed. (Do not eat, drink or rinse for 30 minutes). metFORMIN 2020-06 Yes 500mg Take 500 Uni vers (GLUCOPHAGE 1-16 mg by ity of ) 500 mg 00:00: mouth as [place] tablet 00 needed. MD Jeanmarie patel [facility] metFORMIN 2020-06 Yes 500mg Take 500 Uni vers (GLUCOPHAGE 1-16 mg by ity of ) 500 mg 00:00: mouth as [place] tablet 00 needed. MD Jeanmarie patel [facility] metoprolol 2020-06- No TAKE ONE Un danae tartrate 06-19 02-08 (1) ity of (LOPRESSOR) 00:00: 00:00 TABLET(S) [place] 50 mg 00 :00 BY MOUTH tablet TWICE A Anderso DAY WITH n FOOD. Cancer Center metoprolol 2020-06- No TAKE ONE Un danae tartrate 16 02-08 (1) ity of (LOPRESSOR) 00:00: 00:00 TABLET(S) [place] 50 mg 00 :00 BY MOUTH tablet TWICE A Anderso DAY WITH n FOOD. Cancer Center losartan 2020-06- No 100mg Take 100 Uni vers (COZAAR) 50 1-13 01-26 mg by ity of mg tablet 00:00: 00:00 mouth [place] 00 :00 daily. MD Jeanmarie patel [facility] losartan 2020-06- No 100mg Take 100 Uni vers (COZAAR) 50 1-13 01-26 mg by ity of mg tablet 00:00: 00:00 mouth [place] 00 :00 daily. MD Jeanmarie patel [facility] Dexilant 60 2020-06- No TAKE ONE U nivers mg capsule 1-10 05-26 (1) ity of 00:00: 00:00 CAPSULE(S) [place] 00 :00 BY MOUTH DAILY. [facility] Dexilant 60 2020-06- No TAKE ONE U nivers mg capsule 06-13 (1) ity of 00:00: 00:00 CAPSULE(S) [place] 00 :00 BY MOUTH DAILY. [facility] 2020-06- No TAKE ONE U nivers (SINGULAIR) 06-07 (1) ity of 10 mg 00:00: 00:00 TABLET(S) [place] tablet 00 :00 BY MOUTH MD ONCE A Anderso DAY. [facility] 2020-06- No TAKE ONE U nivers (SINGULAIR) 06-07 (1) ity of 10 mg 00:00: 00:00 TABLET(S) [place] tablet 00 :00 BY MOUTH ONCE A Anderso DAY. [facility] diazePAM 2020-06- No 5mg Take 5 mg Uni vers (VALIUM) 5 -08 by mouth ity of mg tablet 00:00: 00:00 as needed. [place] 00 :00 [facility] diazePAM 2020-06- No 5mg Take 5 mg Uni vers (VALIUM) 5 0-30 07-08 by mouth ity of mg tablet 00:00: 00:00 as needed. [place] 00 :00 [facility] cetirizine 2020-06- No TAKE ONE Un danae (ZyrTEC) 10 10-27 (1) ity of mg tablet 00:00: 00:00 TABLET(S) [place] 00 :00 BY MOUTH ONCE A Anderso DAY. [facility] clopidogrel 2020-06- No TAKE ONE U nivers (PLAVIX) 75 10-27 (1) ity of mg tablet 00:00: 00:00 TABLET(S) [place] 00 :00 BY MOUTH ONCE A Anderso DAY. [facility] cetirizine 2020-06- No TAKE ONE Un danae (ZyrTEC) 10 010-27 (1) ity of mg tablet 00:00: 00:00 TABLET(S) [place] 00 :00 BY MOUTH MD ONCE A Anderso DAY. [facility] clopidogrel 2020-06- No TAKE ONE U nivers (PLAVIX) 75 - (1) ity of mg tablet 00:00: 00:00 TABLET(S) [place] 00 :00 BY MOUTH MD ONCE A Anderso DAY. [facility] simvastatin 2020-06- No TAKE ONE U nivers (ZOCOR) 10 06-29 (1) ity of mg tablet 00:00: 00:00 TABLET(S) [place] 00 :00 BY MOUTH MD EVERY Anderso EVENING. [facility] simvastatin 2020-06- No TAKE ONE U nivers (ZOCOR) 10 06-29 (1) ity of mg tablet 00:00: 00:00 TABLET(S) [place] 00 :00 BY MOUTH MD EVERY Anderso EVENING. [facility] fenofibrate 2021- No TAKE ONE U nivers nanocrystal 02-08 (1) ity of lized 00:00: 00:00 TABLET(S) [place] (TRICOR) 00 :00 BY MOUTH 145 mg ONCE A Anderso tablet DAY. [facility] fenofibrate 2021- No TAKE ONE U nivers nanocrystal 02-08 (1) ity of lized 00:00: 00:00 TABLET(S) [place] (TRICOR) 00 :00 BY MOUTH 145 mg ONCE A Anderso tablet DAY. [facility] fenofibrate 2020- No TAKE ONE Methodi (TRICOR) 02-01 (1) st 145 MG 00:00: 00:00 TABLET(S) Hospi ta tablet 00 :00 BY MOUTH l ONCE A DAY. metoprolol Yes 50mg Q.5D Take 1 Metho di tartrate 8-25 tablet (50 st (LOPRESSOR) 00:00: mg total) H ospita 50 mg 00 by mouth 2 l tablet (two) times a day. clopidogreL 2021- No TAKE ONE M ethodi (PLAVIX) 75 6-25 08-23 (1) st mg tablet 00:00: 00:00 TABLET(S) Ho spita 00 :00 BY MOUTH l ONCE A DAY. metoprolol 2021- No [id number] 25mg Q.5D Take 1 Methodi tartrate 10-27 tablet (25 st (LOPRESSOR) 00:00: 00:00 mg total) Hospita 25 mg 00 :00 by mouth 2 l tablet (two) times a day. losartan 2021- No 50mg QD Take 1 Method i (Cozaar) 50 10-26 tablet (50 s t MG tablet 00:00: 00:00 mg total) Ho spita 00 :00 by mouth l daily. Metformin Metformin Yes Na Bullard 1 tablet Common HCl HCl 7 with a Spirit 00:00: meal - [facility] 00 [facility] Montelukast Montelukast Yes Na Bullard 1 tablet Common Sodium Sodium 09-22 Spirit 00:00: - [facility] cetirizine 2018-06 Yes 10mg QD Take 10 mg M ethodi (ZyrTEC) 10 0-[address] MG tablet 00:00: daily. Hospit a 00 l FLUAD Yes TO BE Methodi , 9-[address] 64 YR 00[facility]00[facility] 44 [facility] PHARMACIST l mcg (15 mcg FOR x 3)/0.5 mL IMMUNIZATI syringe ON simvastatin 2021- No 10mg QD Take 1 Met hodi (ZOCOR) 10 02-11 tablet (10 st MG tablet 00:00: 00:00 mg total) Ho spita 00 :00 by mouth l nightly. ferrous 2021- No Univers sulfate -10-23 ity of (iron) 325 00:00: 00:00 [place] mg (65 mg 00 :00 MD elemental Anderso iron per n tablet) Cancer tablet Center ferrous 2021- No Univers sulfate 3-10-23 ity of (iron) 325 00:00: 00:00 [place] mg (65 mg 00 :00 MD elemental [place] iron per n tablet) Cancer tablet Center DEXILANT 60 Yes 60mg QD Take 60 mg Methodi mg capsule 4-[address] 00:00: daily. Hospita 00 l aspirin 81 2009-06- No 81mg Take 81 mg Univers mg EC 06-25 by mouth. ity of tablet 00:00: 00:00 [place] 00 :00 MD Jeanmarie patel [facility] aspirin 81 2009-06- No 81mg Take 81 mg Univers mg EC 06-25 by mouth. ity of tablet 00:00: 00:00 00 :00 MD Locke amanda [facility] Cialis Cialis Yes Na Bullard 1 tablet Comm on [facility] Metoprolol Metoprolol Yes Na Bullard 1 tablet Common Tartrate [facility] Dexilant Yes Na Bullard TAKE ONE Common (1) Spirit CAPSULE(S) - [facility] BY MOUTH St ONCE A DAY. Medical Center Plavix Plavix Yes Na Bullard 1 tablet Comm on [facility] Plavix Plavix Yes Na Bullard 1 tablet Comm on [facility] Ventolin Ventolin Yes Na Bullard 2 puffs as Common HFA HFA needed [facility] Nicotine Nicotine Yes Na Bullard 1 patch to Common Step 1 Step 1 skin [facility] Cetirizine Cetirizine Yes Na Bullard 1 tablet Common HCl HCl [facility] Cetirizine Cetirizine Yes Na Bullard TAKE ONE Common HCl HCl (1) Spirit TABLET(S) - [facility] BY MOUTH St ONCE A DAY. Medical Center Simvastatin Simvastatin Yes Na Bullard 1 tablet Common in the [place] [facility] evening [facility] Nystatin Nystatin Yes Na Bullard 4 ml Comm on [facility] Fenofibrate Fenofibrate Yes Na Bullard 1 tablet Common with food [facility] Symbicort Symbicort Yes Na Bullard 2 puffs Common [facility] Flonase Flonase Yes Na Bullard 2 spray in Common each [facility] nostril [facility] Montelukast Montelukast No 1{table QD Montelukas Sodium 10 Sodium 10 t} t Sodium MG MG 10 MG Lansoprazol Lansoprazol No 1{capsu QD Lansoprazo e 30 MG e 30 MG le_befo le 30 MG re_a_me al} cloNIDine cloNIDine No QD cloNIDine HCl 0.1 MG HCl 0.1 MG HCl 0.1 MG Ventolin Ventolin No 2{puffs TID Ventolin HFA 108 (90 HFA 108 (90 _as_nee HFA 108 Base) Base) ded} (90 Base) MCG/ACT MCG/ACT MCG/ACT HYDROcodone HYDROcodone No TID HYDROcodon -Acetaminop -Acetaminop e-Acetamin hen 5-325 hen 5-325 ophen MG MG 5-325 MG Folic Acid Folic Acid No 1{table QD Folic Acid 1 MG 1 MG t} 1 MG Ipratropium Ipratropium No 3{ml_as 6xD Ipratropiu -Albuterol -Albuterol _needed m-Albutero 0.5-2.5 (3) 0.5-2.5 (3) } l 0.5-2.5 MG/3ML MG/3ML (3) MG/3ML Brovana 15 Brovana 15 No BID Brovana 15 MCG/2ML MCG/2ML MCG/2ML Budesonide Budesonide No BID Budesonide 0.5 MG/2ML 0.5 MG/2ML 0.5 MG/2ML Polyethylen Polyethylen No TID Polyethyle e Glycol e Glycol ne Glycol 3350 17 3350 17 3350 17 GM/SCOOP GM/SCOOP GM/SCOOP Montelukast Montelukast No Montelukas Sodium 10 Sodium 10 t Sodium MG MG 10 MG Magnesium Magnesium No 1{table QD Magnesium Oxide 500 Oxide 500 t_with_ Oxide 500 MG MG food} MG Metoprolol Metoprolol No 1{table BID Metoprolol Tartrate 50 Tartrate 50 t_with_ Tartrate MG MG food} 50 MG traMADol traMADol No QID traMADol HCl 50 MG HCl 50 MG HCl 50 MG Rosuvastati Rosuvastati No 1{table QD Rosuvastat n Calcium n Calcium t} in Calcium 40 MG 40 MG 40 MG Plavix 75 Plavix 75 No 1{table QD Plavix 75 MG MG t} MG metFORMIN metFORMIN No 1{table BID metFORMIN HCl 500 MG HCl 500 MG t_with_ HCl 500 MG a_meal} Fenofibrate Fenofibrate No 1{table QD Fenofibrat 54 MG 54 MG t_with_ e 54 MG food} Trelegy Trelegy No 1{puff} QD Trelegy Ellipta Ellipta Ellipta 200-62.5-25 200-62.5-25 200-62.5-2 MCG/INH MCG/INH 5 MCG/INH Nicotine Nicotine No 1{patch QD Nicotine Step 1 21 Step 1 21 _to_ski Step 1 21 MG/24HR MG/24HR n} MG/24HR Ferrous Ferrous No 1{table QD Ferrous Sulfate 325 Sulfate 325 t} Sulfate (65 Fe) MG (65 Fe) MG 325 (65 Fe) MG Flonase 50 Flonase 50 No 2{spray QD Flonase 50 MCG/ACT MCG/ACT _in_eac MCG/ACT h_nostr il} Cyclobenzap Cyclobenzap No 1{table QD Cyclobenza rine HCl 5 rine HCl 5 t_at_be chente HCl MG MG dtime_a 5 MG s_neede d} Cetirizine Cetirizine No 1{table QD Cetirizine HCl 10 MG HCl 10 MG t} HCl 10 MG Losartan Losartan No 1{table QD Losartan Potassium Potassium t} Potassium 100 MG 100 MG 100 MG Albuterol Albuterol No QID Albuterol Sulfate Sulfate Sulfate (2.5 (2.5 (2.5 MG/3ML) MG/3ML) MG/3ML) 0.083% 0.083% 0.083% Cetirizine Cetirizine No Cetirizine HCl 10 MG HCl 10 MG HCl 10 MG Ondansetron Ondansetron No TID Ondansetro 8 MG 8 MG n 8 MG Fluoridex Fluoridex No BID Fluoridex 1.1 % 1.1 % 1.1 % Sodium Sodium No 4{ml} BID Sodium Chloride 7 Chloride 7 Chloride 7 % % % Oxygen- Oxygen- No Oxygen- Symbicort Symbicort No 2{puffs BID Symbicort 80-4.5 80-4.5 } 80-4.5 MCG/ACT MCG/ACT MCG/ACT Norvasc 10 Norvasc 10 No QD Norvasc 10 MG MG MG Acetaminoph Acetaminoph No 1{capsu QID Acetaminop en 500 MG en 500 MG le_as_n hen 500 MG eeded} Montelukast Montelukast No 1{table QD Montelukas Sodium 10 Sodium 10 t} t Sodium MG MG 10 MG Lansoprazol Lansoprazol No 1{capsu QD Lansoprazo e 30 MG e 30 MG le_befo le 30 MG re_a_me al} cloNIDine cloNIDine No QD cloNIDine HCl 0.1 MG HCl 0.1 MG HCl 0.1 MG Ventolin Ventolin No 2{puffs TID Ventolin HFA 108 (90 HFA 108 (90 _as_nee HFA 108 Base) Base) ded} (90 Base) MCG/ACT MCG/ACT MCG/ACT HYDROcodone HYDROcodone No TID HYDROcodon -Acetaminop -Acetaminop e-Acetamin hen 5-325 hen 5-325 ophen MG MG 5-325 MG Folic Acid Folic Acid No 1{table QD Folic Acid 1 MG 1 MG t} 1 MG Ipratropium Ipratropium No 3{ml_as 6xD Ipratropiu -Albuterol -Albuterol _needed m-Albutero 0.5-2.5 (3) 0.5-2.5 (3) } l 0.5-2.5 MG/3ML MG/3ML (3) MG/3ML Brovana 15 Brovana 15 No BID Brovana 15 MCG/2ML MCG/2ML MCG/2ML Budesonide Budesonide No BID Budesonide 0.5 MG/2ML 0.5 MG/2ML 0.5 MG/2ML Montelukast Montelukast No Montelukas Sodium 10 Sodium 10 t Sodium MG MG 10 MG Montelukast Montelukast No 1{table QD Montelukas Sodium 10 Sodium 10 t} t Sodium MG MG 10 MG Simvastatin Simvastatin No Simvastati 10 MG 10 MG n 10 MG Fenofibrate Fenofibrate No 1{table QD Fenofibrat 54 MG 54 MG t_with_ e 54 MG food} Cetirizine Cetirizine No Cetirizine HCl 10 MG HCl 10 MG HCl 10 MG Ventolin Ventolin No 2{puffs QID Ventolin HFA 108 (90 HFA 108 (90 _as_nee HFA 108 Base) Base) ded} (90 Base) MCG/ACT MCG/ACT MCG/ACT Metoprolol Metoprolol No 1{table BID Metoprolol Tartrate 50 Tartrate 50 t_with_ Tartrate MG MG food} 50 MG Cetirizine Cetirizine No 1{table QD Cetirizine HCl 10 MG HCl 10 MG t} HCl 10 MG Losartan Losartan No 1{table QD Losartan Potassium Potassium t} Potassium 50 MG 50 MG 50 MG metFORMIN metFORMIN No 1{table BID metFORMIN HCl 500 MG HCl 500 MG t_with_ HCl 500 MG a_meal} Symbicort Symbicort No 2{puffs BID Symbicort 160-4.5 160-4.5 } 160-4.5 MCG/ACT MCG/ACT MCG/ACT Nicotine Nicotine No 1{patch QD Nicotine Step 1 21 Step 1 21 _to_ Step 1 21 MG/24HR MG/24HR n} MG/24HR Simvastatin Simvastatin No 1{table QD Simvastati 10 MG 10 MG t_in_th n 10 MG e_eveni ng} Plavix 75 Plavix 75 No 1{table QD Plavix 75 MG MG t} MG Flonase 50 Flonase 50 No 2{spray QD Flonase 50 MCG/ACT MCG/ACT _in_eac MCG/ACT h_nostr il} Cetirizine Cetirizine No Cetirizine HCl 10 MG HCl 10 MG HCl 10 MG Metoprolol Metoprolol No 1{table BID Metoprolol Tartrate 50 Tartrate 50 t_with_ Tartrate MG MG food} 50 MG Montelukast Montelukast No Montelukas Sodium 10 Sodium 10 t Sodium MG MG 10 MG Nicotine Nicotine No 1{patch QD Nicotine Step 1 21 Step 1 21 _to_ski Step 1 21 MG/24HR MG/24HR n} MG/24HR Simvastatin Simvastatin No Simvastati 10 MG 10 MG n 10 MG Fenofibrate Fenofibrate No 1{table QD Fenofibrat 54 MG 54 MG t_with_ e 54 MG food} Symbicort Symbicort No 2{puffs BID Symbicort 160-4.5 160-4.5 } 160-4.5 MCG/ACT MCG/ACT MCG/ACT Losartan Losartan No 1{table QD Losartan Potassium Potassium t} Potassium 50 MG 50 MG 50 MG Flonase 50 Flonase 50 No 2{spray QD Flonase 50 MCG/ACT MCG/ACT _in_eac MCG/ACT h_nostr il} metFORMIN metFORMIN No metFORMIN HCl 500 MG HCl 500 MG HCl 500 MG Ventolin Ventolin No 2{puffs QID Ventolin HFA 108 (90 HFA 108 (90 _as_nee HFA 108 Base) Base) ded} (90 Base) MCG/ACT MCG/ACT MCG/ACT Plavix 75 Plavix 75 No 1{table QD Plavix 75 MG MG t} MG Cetirizine Cetirizine No Cetirizine HCl 10 MG HCl 10 MG HCl 10 MG Metoprolol Metoprolol No 1{table BID Metoprolol Tartrate 50 Tartrate 50 t_with_ Tartrate MG MG food} 50 MG Montelukast Montelukast No Montelukas Sodium 10 Sodium 10 t Sodium MG MG 10 MG Nicotine Nicotine No 1{patch QD Nicotine Step 1 21 Step 1 21 _to_ski Step 1 21 MG/24HR MG/24HR n} MG/24HR Simvastatin Simvastatin No Simvastati 10 MG 10 MG n 10 MG Fenofibrate Fenofibrate No 1{table QD Fenofibrat 54 MG 54 MG t_with_ e 54 MG food} Symbicort Symbicort No 2{puffs BID Symbicort 160-4.5 160-4.5 } 160-4.5 MCG/ACT MCG/ACT MCG/ACT Losartan Losartan No 1{table QD Losartan Potassium Potassium t} Potassium 50 MG 50 MG 50 MG Flonase 50 Flonase 50 No 2{spray QD Flonase 50 MCG/ACT MCG/ACT _in_eac MCG/ACT h_nostr il} metFORMIN metFORMIN No metFORMIN HCl 500 MG HCl 500 MG HCl 500 MG Ventolin Ventolin No 2{puffs QID Ventolin HFA 108 (90 HFA 108 (90 _as_nee HFA 108 Base) Base) ded} (90 Base) MCG/ACT MCG/ACT MCG/ACT Plavix 75 Plavix 75 No 1{table QD Plavix 75 MG MG t} MG Plavix 75 Plavix 75 No 1{table QD Plavix 75 MG MG t} MG Cetirizine Cetirizine No 1{table QD Cetirizine HCl 10 MG HCl 10 MG t} HCl 10 MG Symbicort Symbicort No 2{puffs BID Symbicort 160-4.5 160-4.5 } 160-4.5 MCG/ACT MCG/ACT MCG/ACT Ventolin Ventolin No 2{puffs QID Ventolin HFA 108 (90 HFA 108 (90 _as_nee HFA 108 Base) Base) ded} (90 Base) MCG/ACT MCG/ACT MCG/ACT Cetirizine Cetirizine No Cetirizine HCl 10 MG HCl 10 MG HCl 10 MG Nicotine Nicotine No 1{patch QD Nicotine Step 1 21 Step 1 21 _to_ski Step 1 21 MG/24HR MG/24HR n} MG/24HR Simvastatin Simvastatin No 1{table QD Simvastati 10 MG 10 MG t_in_th n 10 MG e_eveni ng} Flonase 50 Flonase 50 No 2{spray QD Flonase 50 MCG/ACT MCG/ACT _in_eac MCG/ACT h_nostr il} Losartan Losartan No 1{table QD Losartan Potassium Potassium t} Potassium 50 MG 50 MG 50 MG Montelukast Montelukast No 1{table QD Montelukas Sodium 10 Sodium 10 t} t Sodium MG MG 10 MG metFORMIN metFORMIN No metFORMIN HCl 500 MG HCl 500 MG HCl 500 MG Fenofibrate Fenofibrate No 1{table QD Fenofibrat 54 MG 54 MG t_with_ e 54 MG food} Montelukast Montelukast No Montelukas Sodium 10 Sodium 10 t Sodium MG MG 10 MG Simvastatin Simvastatin No Simvastati 10 MG 10 MG n 10 MG Metoprolol Metoprolol No 1{table BID Metoprolol Tartrate 50 Tartrate 50 t_with_ Tartrate MG MG food} 50 MG metFORMIN metFORMIN No metFORMIN HCl 500 MG HCl 500 MG HCl 500 MG Cetirizine Cetirizine No Cetirizine HCl 10 MG HCl 10 MG HCl 10 MG Simvastatin Simvastatin No 1{table QD Simvastati 10 MG 10 MG t_in_th n 10 MG e_eveni ng} Cetirizine Cetirizine No 1{table QD Cetirizine HCl 10 MG HCl 10 MG t} HCl 10 MG Flonase 50 Flonase 50 No 2{spray QD Flonase 50 MCG/ACT MCG/ACT _in_eac MCG/ACT h_nostr il} Symbicort Symbicort No 2{puffs BID Symbicort 160-4.5 160-4.5 } 160-4.5 MCG/ACT MCG/ACT MCG/ACT Nicotine Nicotine No 1{patch QD Nicotine Step 1 21 Step 1 21 _to Step 1 21 MG/24HR MG/24HR n} MG/24HR Plavix 75 Plavix 75 No 1{table QD Plavix 75 MG MG t} MG Fenofibrate Fenofibrate No 1{table QD Fenofibrat 54 MG 54 MG t_with_ e 54 MG food} Metoprolol Metoprolol No 1{table BID Metoprolol Tartrate 50 Tartrate 50 t_with_ Tartrate MG MG food} 50 MG Losartan Losartan No 1{table QD Losartan Potassium Potassium t} Potassium 100 MG 100 MG 100 MG Montelukast Montelukast No Montelukas Sodium 10 Sodium 10 t Sodium MG MG 10 MG Ventolin Ventolin No 2{puffs QID Ventolin HFA 108 (90 HFA 108 (90 _as_nee HFA 108 Base) Base) ded} (90 Base) MCG/ACT MCG/ACT MCG/ACT Montelukast Montelukast No 1{table QD Montelukas Sodium 10 Sodium 10 t} t Sodium MG MG 10 MG Simvastatin Simvastatin No Simvastati 10 MG 10 MG n 10 MG metFORMIN metFORMIN No metFORMIN HCl 500 MG HCl 500 MG HCl 500 MG Cetirizine Cetirizine No Cetirizine HCl 10 MG HCl 10 MG HCl 10 MG Simvastatin Simvastatin No 1{table QD Simvastati 10 MG 10 MG t_in_th n 10 MG e_eveni ng} Cetirizine Cetirizine No 1{table QD Cetirizine HCl 10 MG HCl 10 MG t} HCl 10 MG Flonase 50 Flonase 50 No 2{spray QD Flonase 50 MCG/ACT MCG/ACT _in_eac MCG/ACT h_nostr il} Symbicort Symbicort No 2{puffs BID Symbicort 160-4.5 160-4.5 } 160-4.5 MCG/ACT MCG/ACT MCG/ACT Nicotine Nicotine No 1{patch QD Nicotine Step 1 21 Step 1 21 _to Step 1 21 MG/24HR MG/24HR n} MG/24HR Plavix 75 Plavix 75 No 1{table QD Plavix 75 MG MG t} MG Fenofibrate Fenofibrate No 1{table QD Fenofibrat 54 MG 54 MG t_with_ e 54 MG food} Metoprolol Metoprolol No 1{table BID Metoprolol Tartrate 50 Tartrate 50 t_with_ Tartrate MG MG food} 50 MG Losartan Losartan No 1{table QD Losartan Potassium Potassium t} Potassium 100 MG 100 MG 100 MG Montelukast Montelukast No Montelukas Sodium 10 Sodium 10 t Sodium MG MG 10 MG Ventolin Ventolin No 2{puffs QID Ventolin HFA 108 (90 HFA 108 (90 _as_nee HFA 108 Base) Base) ded} (90 Base) MCG/ACT MCG/ACT MCG/ACT Montelukast Montelukast No 1{table QD Montelukas Sodium 10 Sodium 10 t} t Sodium MG MG 10 MG Simvastatin Simvastatin No Simvastati 10 MG 10 MG n 10 MG metFORMIN metFORMIN No metFORMIN HCl 500 MG HCl 500 MG HCl 500 MG Cetirizine Cetirizine No Cetirizine HCl 10 MG HCl 10 MG HCl 10 MG Simvastatin Simvastatin No 1{table QD Simvastati 10 MG 10 MG t_in_th n 10 MG e_eveni ng} Cetirizine Cetirizine No 1{table QD Cetirizine HCl 10 MG HCl 10 MG t} HCl 10 MG Flonase 50 Flonase 50 No 2{spray QD Flonase 50 MCG/ACT MCG/ACT _in_eac MCG/ACT h_nostr il} Symbicort Symbicort No 2{puffs BID Symbicort 160-4.5 160-4.5 } 160-4.5 MCG/ACT MCG/ACT MCG/ACT Nicotine Nicotine No 1{patch QD Nicotine Step 1 21 Step 1 21 _to_ski Step 1 21 MG/24HR MG/24HR n} MG/24HR Plavix 75 Plavix 75 No 1{table QD Plavix 75 MG MG t} MG Fenofibrate Fenofibrate No 1{table QD Fenofibrat 54 MG 54 MG t_with_ e 54 MG food} Metoprolol Metoprolol No 1{table BID Metoprolol Tartrate 50 Tartrate 50 t_with_ Tartrate MG MG food} 50 MG Losartan Losartan No 1{table QD Losartan Potassium Potassium t} Potassium 100 MG 100 MG 100 MG Montelukast Montelukast No Montelukas Sodium 10 Sodium 10 t Sodium MG MG 10 MG Ventolin Ventolin No 2{puffs QID Ventolin HFA 108 (90 HFA 108 (90 _as_nee HFA 108 Base) Base) ded} (90 Base) MCG/ACT MCG/ACT MCG/ACT Montelukast Montelukast No 1{table QD Montelukas Sodium 10 Sodium 10 t} t Sodium MG MG 10 MG Simvastatin Simvastatin No Simvastati 10 MG 10 MG n 10 MG metFORMIN metFORMIN No metFORMIN HCl 500 MG HCl 500 MG HCl 500 MG Cetirizine Cetirizine No Cetirizine HCl 10 MG HCl 10 MG HCl 10 MG Simvastatin Simvastatin No 1{table QD Simvastati 10 MG 10 MG t_in_th n 10 MG e_eveni ng} Cetirizine Cetirizine No 1{table QD Cetirizine HCl 10 MG HCl 10 MG t} HCl 10 MG Flonase 50 Flonase 50 No 2{spray QD Flonase 50 MCG/ACT MCG/ACT _in_eac MCG/ACT h_nostr il} Symbicort Symbicort No 2{puffs BID Symbicort 160-4.5 160-4.5 } 160-4.5 MCG/ACT MCG/ACT MCG/ACT Nicotine Nicotine No 1{patch QD Nicotine Step 1 21 Step 1 21 _to_ski Step 1 21 MG/24HR MG/24HR n} MG/24HR Plavix 75 Plavix 75 No 1{table QD Plavix 75 MG MG t} MG Fenofibrate Fenofibrate No 1{table QD Fenofibrat 54 MG 54 MG t_with_ e 54 MG food} Metoprolol Metoprolol No 1{table BID Metoprolol Tartrate 50 Tartrate 50 t_with_ Tartrate MG MG food} 50 MG Losartan Losartan No 1{table QD Losartan Potassium Potassium t} Potassium 100 MG 100 MG 100 MG Montelukast Montelukast No Montelukas Sodium 10 Sodium 10 t Sodium MG MG 10 MG Ventolin Ventolin No 2{puffs QID Ventolin HFA 108 (90 HFA 108 (90 _as_nee HFA 108 Base) Base) ded} (90 Base) MCG/ACT MCG/ACT MCG/ACT Montelukast Montelukast No 1{table QD Montelukas Sodium 10 Sodium 10 t} t Sodium MG MG 10 MG Simvastatin Simvastatin No Simvastati 10 MG 10 MG n 10 MG metFORMIN metFORMIN No metFORMIN HCl 500 MG HCl 500 MG HCl 500 MG Cetirizine Cetirizine No Cetirizine HCl 10 MG HCl 10 MG HCl 10 MG Simvastatin Simvastatin No 1{table QD Simvastati 10 MG 10 MG t_in_th n 10 MG e_eveni ng} Cetirizine Cetirizine No 1{table QD Cetirizine HCl 10 MG HCl 10 MG t} HCl 10 MG Flonase 50 Flonase 50 No 2{spray QD Flonase 50 MCG/ACT MCG/ACT _in_eac MCG/ACT h_nostr il} Symbicort Symbicort No 2{puffs BID Symbicort 160-4.5 160-4.5 } 160-4.5 MCG/ACT MCG/ACT MCG/ACT Nicotine Nicotine No 1{patch QD Nicotine Step 1 21 Step 1 21 _to_ski Step 1 21 MG/24HR MG/24HR n} MG/24HR Plavix 75 Plavix 75 No 1{table QD Plavix 75 MG MG t} MG Fenofibrate Fenofibrate No 1{table QD Fenofibrat 54 MG 54 MG t_with_ e 54 MG food} Metoprolol Metoprolol No 1{table BID Metoprolol Tartrate 50 Tartrate 50 t_with_ Tartrate MG MG food} 50 MG Losartan Losartan No 1{table QD Losartan Potassium Potassium t} Potassium 100 MG 100 MG 100 MG Montelukast Montelukast No Montelukas Sodium 10 Sodium 10 t Sodium MG MG 10 MG Ventolin Ventolin No 2{puffs QID Ventolin HFA 108 (90 HFA 108 (90 _as_nee HFA 108 Base) Base) ded} (90 Base) MCG/ACT MCG/ACT MCG/ACT Montelukast Montelukast No 1{table QD Montelukas Sodium 10 Sodium 10 t} t Sodium MG MG 10 MG Simvastatin Simvastatin No Simvastati 10 MG 10 MG n 10 MG metFORMIN metFORMIN No metFORMIN HCl 500 MG HCl 500 MG HCl 500 MG Cetirizine Cetirizine No Cetirizine HCl 10 MG HCl 10 MG HCl 10 MG Simvastatin Simvastatin No 1{table QD Simvastati 10 MG 10 MG t_in_th n 10 MG e_eveni ng} Cetirizine Cetirizine No 1{table QD Cetirizine HCl 10 MG HCl 10 MG t} HCl 10 MG Flonase 50 Flonase 50 No 2{spray QD Flonase 50 MCG/ACT MCG/ACT _in_eac MCG/ACT h_nostr il} Symbicort Symbicort No 2{puffs BID Symbicort 160-4.5 160-4.5 } 160-4.5 MCG/ACT MCG/ACT MCG/ACT Nicotine Nicotine No 1{patch QD Nicotine Step 1 21 Step 1 21 _to_ski Step 1 21 MG/24HR MG/24HR n} MG/24HR Plavix 75 Plavix 75 No 1{table QD Plavix 75 MG MG t} MG Fenofibrate Fenofibrate No 1{table QD Fenofibrat 54 MG 54 MG t_with_ e 54 MG food} Metoprolol Metoprolol No 1{table BID Metoprolol Tartrate 50 Tartrate 50 t_with_ Tartrate MG MG food} 50 MG Losartan Losartan No 1{table QD Losartan Potassium Potassium t} Potassium 100 MG 100 MG 100 MG Montelukast Montelukast No Montelukas Sodium 10 Sodium 10 t Sodium MG MG 10 MG Ventolin Ventolin No 2{puffs QID Ventolin HFA 108 (90 HFA 108 (90 _as_nee HFA 108 Base) Base) ded} (90 Base) MCG/ACT MCG/ACT MCG/ACT Montelukast Montelukast No 1{table QD Montelukas Sodium 10 Sodium 10 t} t Sodium MG MG 10 MG Simvastatin Simvastatin No Simvastati 10 MG 10 MG n 10 MG metFORMIN metFORMIN No metFORMIN HCl 500 MG HCl 500 MG HCl 500 MG Cetirizine Cetirizine No Cetirizine HCl 10 MG HCl 10 MG HCl 10 MG Simvastatin Simvastatin No 1{table QD Simvastati 10 MG 10 MG t_in_th n 10 MG e_eveni ng} Cetirizine Cetirizine No 1{table QD Cetirizine HCl 10 MG HCl 10 MG t} HCl 10 MG Flonase 50 Flonase 50 No 2{spray QD Flonase 50 MCG/ACT MCG/ACT _in_eac MCG/ACT h_nostr il} Symbicort Symbicort No 2{puffs BID Symbicort 160-4.5 160-4.5 } 160-4.5 MCG/ACT MCG/ACT MCG/ACT Nicotine Nicotine No 1{patch QD Nicotine Step 1 21 Step 1 _to Step 1 21 MG/24HR MG/24HR n} MG/24HR Plavix 75 Plavix 75 No 1{table QD Plavix 75 MG MG t} MG Fenofibrate Fenofibrate No 1{table QD Fenofibrat 54 MG 54 MG t_with_ e 54 MG food} Metoprolol Metoprolol No 1{table BID Metoprolol Tartrate 50 Tartrate 50 t_with_ Tartrate MG MG food} 50 MG Losartan Losartan No 1{table QD Losartan Potassium Potassium t} Potassium 100 MG 100 MG 100 MG Montelukast Montelukast No Montelukas Sodium 10 Sodium 10 t Sodium MG MG 10 MG Ventolin Ventolin No 2{puffs QID Ventolin HFA 108 (90 HFA 108 (90 _as_nee HFA 108 Base) Base) ded} (90 Base) MCG/ACT MCG/ACT MCG/ACT Montelukast Montelukast No 1{table QD Montelukas Sodium 10 Sodium 10 t} t Sodium MG MG 10 MG Simvastatin Simvastatin No Simvastati 10 MG 10 MG n 10 MG metFORMIN metFORMIN No metFORMIN HCl 500 MG HCl 500 MG HCl 500 MG Cetirizine Cetirizine No Cetirizine HCl 10 MG HCl 10 MG HCl 10 MG Simvastatin Simvastatin No 1{table QD Simvastati 10 MG 10 MG t_in_th n 10 MG e_eveni ng} Cetirizine Cetirizine No 1{table QD Cetirizine HCl 10 MG HCl 10 MG t} HCl 10 MG Flonase 50 Flonase 50 No 2{spray QD Flonase 50 MCG/ACT MCG/ACT _in_eac MCG/ACT h_nostr il} Symbicort Symbicort No 2{puffs BID Symbicort 160-4.5 160-4.5 } 160-4.5 MCG/ACT MCG/ACT MCG/ACT Nicotine Nicotine No 1{patch QD Nicotine Step 1 21 Step 1 _to Step 1 21 MG/24HR MG/24HR n} MG/24HR Plavix 75 Plavix 75 No 1{table QD Plavix 75 MG MG t} MG Fenofibrate Fenofibrate No 1{table QD Fenofibrat 54 MG 54 MG t_with_ e 54 MG food} Metoprolol Metoprolol No 1{table BID Metoprolol Tartrate 50 Tartrate 50 t_with_ Tartrate MG MG food} 50 MG Losartan Losartan No 1{table QD Losartan Potassium Potassium t} Potassium 100 MG 100 MG 100 MG Montelukast Montelukast No Montelukas Sodium 10 Sodium 10 t Sodium MG MG 10 MG Ventolin Ventolin No 2{puffs QID Ventolin HFA 108 (90 HFA 108 (90 _as_nee HFA 108 Base) Base) ded} (90 Base) MCG/ACT MCG/ACT MCG/ACT Montelukast Montelukast No 1{table QD Montelukas Sodium 10 Sodium 10 t} t Sodium MG MG 10 MG Simvastatin Simvastatin No Simvastati 10 MG 10 MG n 10 MG metFORMIN metFORMIN No metFORMIN HCl 500 MG HCl 500 MG HCl 500 MG Cetirizine Cetirizine No Cetirizine HCl 10 MG HCl 10 MG HCl 10 MG Simvastatin Simvastatin No 1{table QD Simvastati 10 MG 10 MG t_in_th n 10 MG e_eveni ng} Cetirizine Cetirizine No 1{table QD Cetirizine HCl 10 MG HCl 10 MG t} HCl 10 MG Flonase 50 Flonase 50 No 2{spray QD Flonase 50 MCG/ACT MCG/ACT _in_eac MCG/ACT h_nostr il} Symbicort Symbicort No 2{puffs BID Symbicort 160-4.5 160-4.5 } 160-4.5 MCG/ACT MCG/ACT MCG/ACT Nicotine Nicotine No 1{patch QD Nicotine Step 1 21 Step 1 21 _to_ski Step 1 21 MG/24HR MG/24HR n} MG/24HR Plavix 75 Plavix 75 No 1{table QD Plavix 75 MG MG t} MG Fenofibrate Fenofibrate No 1{table QD Fenofibrat 54 MG 54 MG t_with_ e 54 MG food} Metoprolol Metoprolol No 1{table BID Metoprolol Tartrate 50 Tartrate 50 t_with_ Tartrate MG MG food} 50 MG Losartan Losartan No 1{table QD Losartan Potassium Potassium t} Potassium 100 MG 100 MG 100 MG Montelukast Montelukast No Montelukas Sodium 10 Sodium 10 t Sodium MG MG 10 MG Ventolin Ventolin No 2{puffs QID Ventolin HFA 108 (90 HFA 108 (90 _as_nee HFA 108 Base) Base) ded} (90 Base) MCG/ACT MCG/ACT MCG/ACT Montelukast Montelukast No 1{table QD Montelukas Sodium 10 Sodium 10 t} t Sodium MG MG 10 MG Simvastatin Simvastatin No Simvastati 10 MG 10 MG n 10 MG Polyethylen Polyethylen No TID Polyethyle e Glycol e Glycol ne Glycol 3350 17 3350 17 3350 17 GM/SCOOP GM/SCOOP GM/SCOOP Montelukast Montelukast No Montelukas Sodium 10 Sodium 10 t Sodium MG MG 10 MG Magnesium Magnesium No 1{table QD Magnesium Oxide 500 Oxide 500 t_with_ Oxide 500 MG MG food} MG Metoprolol Metoprolol No 1{table BID Metoprolol Tartrate 50 Tartrate 50 t_with_ Tartrate MG MG food} 50 MG traMADol traMADol No QID traMADol HCl 50 MG HCl 50 MG HCl 50 MG Rosuvastati Rosuvastati No 1{table QD Rosuvastat n Calcium n Calcium t} in Calcium 40 MG 40 MG 40 MG Plavix 75 Plavix 75 No 1{table QD Plavix 75 MG MG t} MG metFORMIN metFORMIN No 1{table BID metFORMIN HCl 500 MG HCl 500 MG t_with_ HCl 500 MG a_meal} Fenofibrate Fenofibrate No 1{table QD Fenofibrat 54 MG 54 MG t_with_ e 54 MG food} Trelegy Trelegy No 1{puff} QD Trelegy Ellipta Ellipta Ellipta 200-62.5-25 200-62.5-25 200-62.5-2 MCG/INH MCG/INH 5 MCG/INH Nicotine Nicotine No 1{patch QD Nicotine Step 1 21 Step 1 21 _to_ski Step 1 21 MG/24HR MG/24HR n} MG/24HR Ferrous Ferrous No 1{table QD Ferrous Sulfate 325 Sulfate 325 t} Sulfate (65 Fe) MG (65 Fe) MG 325 (65 Fe) MG Flonase 50 Flonase 50 No 2{spray QD Flonase 50 MCG/ACT MCG/ACT _in_eac MCG/ACT h_nostr il} Cyclobenzap Cyclobenzap No 1{table QD Cyclobenza rine HCl 5 rine HCl 5 t_at_be chente HCl MG MG dtime_a 5 MG s_neede d} Cetirizine Cetirizine No 1{table QD Cetirizine HCl 10 MG HCl 10 MG t} HCl 10 MG Losartan Losartan No 1{table QD Losartan Potassium Potassium t} Potassium 100 MG 100 MG 100 MG Albuterol Albuterol No QID Albuterol Sulfate Sulfate Sulfate (2.5 (2.5 (2.5 MG/3ML) MG/3ML) MG/3ML) 0.083% 0.083% 0.083% Cetirizine Cetirizine No Cetirizine HCl 10 MG HCl 10 MG HCl 10 MG Ondansetron Ondansetron No TID Ondansetro 8 MG 8 MG n 8 MG Fluoridex Fluoridex No BID Fluoridex 1.1 % 1.1 % 1.1 % Sodium Sodium No 4{ml} BID Sodium Chloride 7 Chloride 7 Chloride 7 % % % Oxygen- Oxygen- No Oxygen- Symbicort Symbicort No 2{puffs BID Symbicort 80-4.5 80-4.5 } 80-4.5 MCG/ACT MCG/ACT MCG/ACT Norvasc 10 Norvasc 10 No QD Norvasc 10 MG MG MG Acetaminoph Acetaminoph No 1{capsu QID Acetaminop en 500 MG en 500 MG le_as_n hen 500 MG eeded} Montelukast Montelukast No 1{table QD Montelukas Sodium 10 Sodium 10 t} t Sodium MG MG 10 MG Lansoprazol Lansoprazol No 1{capsu QD Lansoprazo e 30 MG e 30 MG le_befo le 30 MG re_a_me al} cloNIDine cloNIDine No QD cloNIDine HCl 0.1 MG HCl 0.1 MG HCl 0.1 MG Ventolin Ventolin No 2{puffs TID Ventolin HFA 108 (90 HFA 108 (90 _as_nee HFA 108 Base) Base) ded} (90 Base) MCG/ACT MCG/ACT MCG/ACT HYDROcodone HYDROcodone No TID HYDROcodon -Acetaminop -Acetaminop e-Acetamin hen 5-325 hen 5-325 ophen MG MG 5-325 MG Folic Acid Folic Acid No 1{table QD Folic Acid 1 MG 1 MG t} 1 MG Ipratropium Ipratropium No 3{ml_as 6xD Ipratropiu -Albuterol -Albuterol _needed m-Albutero 0.5-2.5 (3) 0.5-2.5 (3) } l 0.5-2.5 MG/3ML MG/3ML (3) MG/3ML Brovana 15 Brovana 15 No BID Brovana 15 MCG/2ML MCG/2ML MCG/2ML Budesonide Budesonide No BID Budesonide 0.5 MG/2ML 0.5 MG/2ML 0.5 MG/2ML Polyethylen Polyethylen No TID Polyethyle e Glycol e Glycol ne Glycol 3350 17 3350 17 3350 17 GM/SCOOP GM/SCOOP GM/SCOOP Montelukast Montelukast No Montelukas Sodium 10 Sodium 10 t Sodium MG MG 10 MG Magnesium Magnesium No 1{table QD Magnesium Oxide 500 Oxide 500 t_with_ Oxide 500 MG MG food} MG Metoprolol Metoprolol No 1{table BID Metoprolol Tartrate 50 Tartrate 50 t_with_ Tartrate MG MG food} 50 MG traMADol traMADol No QID traMADol HCl 50 MG HCl 50 MG HCl 50 MG Rosuvastati Rosuvastati No 1{table QD Rosuvastat n Calcium n Calcium t} in Calcium 40 MG 40 MG 40 MG Plavix 75 Plavix 75 No 1{table QD Plavix 75 MG MG t} MG metFORMIN metFORMIN No 1{table BID metFORMIN HCl 500 MG HCl 500 MG t_with_ HCl 500 MG a_meal} Fenofibrate Fenofibrate No 1{table QD Fenofibrat 54 MG 54 MG t_with_ e 54 MG food} Trelegy Trelegy No 1{puff} QD Trelegy Ellipta Ellipta Ellipta 200-62.5-25 200-62.5-25 200-62.5-2 MCG/INH MCG/INH 5 MCG/INH Nicotine Nicotine No 1{patch QD Nicotine Step 1 21 Step 1 21 _to_ski Step 1 21 MG/24HR MG/24HR n} MG/24HR Ferrous Ferrous No 1{table QD Ferrous Sulfate 325 Sulfate 325 t} Sulfate (65 Fe) MG (65 Fe) MG 325 (65 Fe) MG Flonase 50 Flonase 50 No 2{spray QD Flonase 50 MCG/ACT MCG/ACT _in_eac MCG/ACT h_nostr il} Cyclobenzap Cyclobenzap No 1{table QD Cyclobenza rine HCl 5 rine HCl 5 t_at_be chente HCl MG MG dtime_a 5 MG s_neede d} Cetirizine Cetirizine No 1{table QD Cetirizine HCl 10 MG HCl 10 MG t} HCl 10 MG Losartan Losartan No 1{table QD Losartan Potassium Potassium t} Potassium 100 MG 100 MG 100 MG Albuterol Albuterol No QID Albuterol Sulfate Sulfate Sulfate (2.5 (2.5 (2.5 MG/3ML) MG/3ML) MG/3ML) 0.083% 0.083% 0.083% Cetirizine Cetirizine No Cetirizine HCl 10 MG HCl 10 MG HCl 10 MG Ondansetron Ondansetron No TID Ondansetro 8 MG 8 MG n 8 MG Fluoridex Fluoridex No BID Fluoridex 1.1 % 1.1 % 1.1 % Sodium Sodium No 4{ml} BID Sodium Chloride 7 Chloride 7 Chloride 7 % % % Oxygen- Oxygen- No Oxygen- Symbicort Symbicort No 2{puffs BID Symbicort 80-4.5 80-4.5 } 80-4.5 MCG/ACT MCG/ACT MCG/ACT Norvasc 10 Norvasc 10 No QD Norvasc 10 MG MG MG Acetaminoph Acetaminoph No 1{capsu QID Acetaminop en 500 MG en 500 MG le_as_n hen 500 MG eeded} Montelukast Montelukast No 1{table QD Montelukas Sodium 10 Sodium 10 t} t Sodium MG MG 10 MG Lansoprazol Lansoprazol No 1{capsu QD Lansoprazo e 30 MG e 30 MG le_befo le 30 MG re_a_me al} cloNIDine cloNIDine No QD cloNIDine HCl 0.1 MG HCl 0.1 MG HCl 0.1 MG Ventolin Ventolin No 2{puffs TID Ventolin HFA 108 (90 HFA 108 (90 _as_nee HFA 108 Base) Base) ded} (90 Base) MCG/ACT MCG/ACT MCG/ACT HYDROcodone HYDROcodone No TID HYDROcodon -Acetaminop -Acetaminop e-Acetamin hen 5-325 hen 5-325 ophen MG MG 5-325 MG Folic Acid Folic Acid No 1{table QD Folic Acid 1 MG 1 MG t} 1 MG Ipratropium Ipratropium No 3{ml_as 6xD Ipratropiu -Albuterol -Albuterol _needed m-Albutero 0.5-2.5 (3) 0.5-2.5 (3) } l 0.5-2.5 MG/3ML MG/3ML (3) MG/3ML Brovana 15 Brovana 15 No BID Brovana 15 MCG/2ML MCG/2ML MCG/2ML Budesonide Budesonide No BID Budesonide 0.5 MG/2ML 0.5 MG/2ML 0.5 MG/2ML Oxygen- Oxygen- No Oxygen- traMADol traMADol No QID traMADol HCl 50 MG HCl 50 MG HCl 50 MG Ferrous Ferrous No 1{table QD Ferrous Sulfate 325 Sulfate 325 t} Sulfate (65 Fe) MG (65 Fe) MG 325 (65 Fe) MG Plavix 75 Plavix 75 No 1{table QD Plavix 75 MG MG t} MG Simvastatin Simvastatin No 1{table QD Simvastati 10 MG 10 MG t_in_th n 10 MG e_eveni ng} Ventolin Ventolin No 2{puffs QID Ventolin HFA 108 (90 HFA 108 (90 _as_nee HFA 108 Base) Base) ded} (90 Base) MCG/ACT MCG/ACT MCG/ACT cloNIDine cloNIDine No QD cloNIDine HCl 0.1 MG HCl 0.1 MG HCl 0.1 MG Acetaminoph Acetaminoph No 1{capsu QID Acetaminop en 500 MG en 500 MG le_as_n hen 500 MG eeded} Albuterol Albuterol No QID Albuterol Sulfate Sulfate Sulfate (2.5 (2.5 (2.5 MG/3ML) MG/3ML) MG/3ML) 0.083% 0.083% 0.083% Symbicort Symbicort No 2{puffs BID Symbicort 160-4.5 160-4.5 } 160-4.5 MCG/ACT MCG/ACT MCG/ACT Flonase 50 Flonase 50 No 2{spray QD Flonase 50 MCG/ACT MCG/ACT _in_eac MCG/ACT h_nostr il} Trelegy Trelegy No 1{puff} QD Trelegy Ellipta Ellipta Ellipta 200-62.5-25 200-62.5-25 200-62.5-2 MCG/INH MCG/INH 5 MCG/INH HYDROcodone HYDROcodone No TID HYDROcodon -Acetaminop -Acetaminop e-Acetamin hen 5-325 hen 5-325 ophen MG MG 5-325 MG Fluoridex Fluoridex No BID Fluoridex 1.1 % 1.1 % 1.1 % Cetirizine Cetirizine No 1{table QD Cetirizine HCl 10 MG HCl 10 MG t} HCl 10 MG Cyclobenzap Cyclobenzap No 1{table QD Cyclobenza rine HCl 5 rine HCl 5 t_at_be chente HCl MG MG dtime_a 5 MG s_neede d} Montelukast Montelukast No 1{table QD Montelukas Sodium 10 Sodium 10 t} t Sodium MG MG 10 MG Ipratropium Ipratropium No 3{ml_as 6xD Ipratropiu -Albuterol -Albuterol _needed m-Albutero 0.5-2.5 (3) 0.5-2.5 (3) } l 0.5-2.5 MG/3ML MG/3ML (3) MG/3ML Rosuvastati Rosuvastati No 1{table QD Rosuvastat n Calcium n Calcium t} in Calcium 40 MG 40 MG 40 MG Ondansetron Ondansetron No TID Ondansetro 8 MG 8 MG n 8 MG Folic Acid Folic Acid No 1{table QD Folic Acid 1 MG 1 MG t} 1 MG Fenofibrate Fenofibrate No 1{table QD Fenofibrat 54 MG 54 MG t_with_ e 54 MG food} Magnesium Magnesium No 1{table QD Magnesium Oxide 500 Oxide 500 t_with_ Oxide 500 MG MG food} MG metFORMIN metFORMIN No 1{table BID metFORMIN HCl 500 MG HCl 500 MG t_with_ HCl 500 MG a_meal} Sodium Sodium No 4{ml} BID Sodium Chloride 7 Chloride 7 Chloride 7 % % % Norvasc 10 Norvasc 10 No QD Norvasc 10 MG MG MG Polyethylen Polyethylen No TID Polyethyle e Glycol e Glycol ne Glycol 3350 17 3350 17 3350 17 GM/SCOOP GM/SCOOP GM/SCOOP Losartan Losartan No 1{table QD Losartan Potassium Potassium t} Potassium 100 MG 100 MG 100 MG Cetirizine Cetirizine No Cetirizine HCl 10 MG HCl 10 MG HCl 10 MG Metoprolol Metoprolol No 1{table BID Metoprolol Tartrate 50 Tartrate 50 t_with_ Tartrate MG MG food} 50 MG Lansoprazol Lansoprazol No 1{capsu QD Lansoprazo e 30 MG e 30 MG le_befo le 30 MG re_a_me al} Budesonide Budesonide No BID Budesonide 0.5 MG/2ML 0.5 MG/2ML 0.5 MG/2ML Montelukast Montelukast No Montelukas Sodium 10 Sodium 10 t Sodium MG MG 10 MG Nicotine Nicotine No 1{patch QD Nicotine Step 1 21 Step 1 21 _to_ski Step 1 21 MG/24HR MG/24HR n} MG/24HR Brovana 15 Brovana 15 No BID Brovana 15 MCG/2ML MCG/2ML MCG/2ML Oxygen- Oxygen- No Oxygen- traMADol traMADol No QID traMADol HCl 50 MG HCl 50 MG HCl 50 MG Ferrous Ferrous No 1{table QD Ferrous Sulfate 325 Sulfate 325 t} Sulfate (65 Fe) MG (65 Fe) MG 325 (65 Fe) MG Plavix 75 Plavix 75 No 1{table QD Plavix 75 MG MG t} MG Simvastatin Simvastatin No 1{table QD Simvastati 10 MG 10 MG t_in_th n 10 MG e_eveni ng} Ventolin Ventolin No 2{puffs QID Ventolin HFA 108 (90 HFA 108 (90 _as_nee HFA 108 Base) Base) ded} (90 Base) MCG/ACT MCG/ACT MCG/ACT cloNIDine cloNIDine No QD cloNIDine HCl 0.1 MG HCl 0.1 MG HCl 0.1 MG Acetaminoph Acetaminoph No 1{capsu QID Acetaminop en 500 MG en 500 MG le_as_n hen 500 MG eeded} Albuterol Albuterol No QID Albuterol Sulfate Sulfate Sulfate (2.5 (2.5 (2.5 MG/3ML) MG/3ML) MG/3ML) 0.083% 0.083% 0.083% Symbicort Symbicort No 2{puffs BID Symbicort 160-4.5 160-4.5 } 160-4.5 MCG/ACT MCG/ACT MCG/ACT Flonase 50 Flonase 50 No 2{spray QD Flonase 50 MCG/ACT MCG/ACT _in_eac MCG/ACT h_nostr il} Trelegy Trelegy No 1{puff} QD Trelegy Ellipta Ellipta Ellipta 200-62.5-25 200-62.5-25 200-62.5-2 MCG/INH MCG/INH 5 MCG/INH HYDROcodone HYDROcodone No TID HYDROcodon -Acetaminop -Acetaminop e-Acetamin hen 5-325 hen 5-325 ophen MG MG 5-325 MG Fluoridex Fluoridex No BID Fluoridex 1.1 % 1.1 % 1.1 % Cetirizine Cetirizine No 1{table QD Cetirizine HCl 10 MG HCl 10 MG t} HCl 10 MG Cyclobenzap Cyclobenzap No 1{table QD Cyclobenza rine HCl 5 rine HCl 5 t_at_be chente HCl MG MG dtime_a 5 MG s_neede d} Montelukast Montelukast No 1{table QD Montelukas Sodium 10 Sodium 10 t} t Sodium MG MG 10 MG Ipratropium Ipratropium No 3{ml_as 6xD Ipratropiu -Albuterol -Albuterol _needed m-Albutero 0.5-2.5 (3) 0.5-2.5 (3) } l 0.5-2.5 MG/3ML MG/3ML (3) MG/3ML Rosuvastati Rosuvastati No 1{table QD Rosuvastat n Calcium n Calcium t} in Calcium 40 MG 40 MG 40 MG Ondansetron Ondansetron No TID Ondansetro 8 MG 8 MG n 8 MG Folic Acid Folic Acid No 1{table QD Folic Acid 1 MG 1 MG t} 1 MG Fenofibrate Fenofibrate No 1{table QD Fenofibrat 54 MG 54 MG t_with_ e 54 MG food} Magnesium Magnesium No 1{table QD Magnesium Oxide 500 Oxide 500 t_with_ Oxide 500 MG MG food} MG metFORMIN metFORMIN No 1{table BID metFORMIN HCl 500 MG HCl 500 MG t_with_ HCl 500 MG a_meal} Sodium Sodium No 4{ml} BID Sodium Chloride 7 Chloride 7 Chloride 7 % % % Norvasc 10 Norvasc 10 No QD Norvasc 10 MG MG MG Polyethylen Polyethylen No TID Polyethyle e Glycol e Glycol ne Glycol 3350 17 3350 17 3350 17 GM/SCOOP GM/SCOOP GM/SCOOP Losartan Losartan No 1{table QD Losartan Potassium Potassium t} Potassium 100 MG 100 MG 100 MG Cetirizine Cetirizine No Cetirizine HCl 10 MG HCl 10 MG HCl 10 MG Metoprolol Metoprolol No 1{table BID Metoprolol Tartrate 50 Tartrate 50 t_with_ Tartrate MG MG food} 50 MG Lansoprazol Lansoprazol No 1{capsu QD Lansoprazo e 30 MG e 30 MG le_befo le 30 MG re_a_me al} Budesonide Budesonide No BID Budesonide 0.5 MG/2ML 0.5 MG/2ML 0.5 MG/2ML Montelukast Montelukast No Montelukas Sodium 10 Sodium 10 t Sodium MG MG 10 MG Nicotine Nicotine No 1{patch QD Nicotine Step 1 21 Step 1 21 _to_ski Step 1 21 MG/24HR MG/24HR n} MG/24HR Brovana 15 Brovana 15 No BID Brovana 15 MCG/2ML MCG/2ML MCG/2ML Oxygen- Oxygen- No Oxygen- traMADol traMADol No QID traMADol HCl 50 MG HCl 50 MG HCl 50 MG Ferrous Ferrous No 1{table QD Ferrous Sulfate 325 Sulfate 325 t} Sulfate (65 Fe) MG (65 Fe) MG 325 (65 Fe) MG Plavix 75 Plavix 75 No 1{table QD Plavix 75 MG MG t} MG Simvastatin Simvastatin No 1{table QD Simvastati 10 MG 10 MG t_in_th n 10 MG e_eveni ng} Ventolin Ventolin No 2{puffs QID Ventolin HFA 108 (90 HFA 108 (90 _as_nee HFA 108 Base) Base) ded} (90 Base) MCG/ACT MCG/ACT MCG/ACT cloNIDine cloNIDine No QD cloNIDine HCl 0.1 MG HCl 0.1 MG HCl 0.1 MG Acetaminoph Acetaminoph No 1{capsu QID Acetaminop en 500 MG en 500 MG le_as_n hen 500 MG eeded} Albuterol Albuterol No QID Albuterol Sulfate Sulfate Sulfate (2.5 (2.5 (2.5 MG/3ML) MG/3ML) MG/3ML) 0.083% 0.083% 0.083% Symbicort Symbicort No 2{puffs BID Symbicort 160-4.5 160-4.5 } 160-4.5 MCG/ACT MCG/ACT MCG/ACT Flonase 50 Flonase 50 No 2{spray QD Flonase 50 MCG/ACT MCG/ACT _in_eac MCG/ACT h_nostr il} Trelegy Trelegy No 1{puff} QD Trelegy Ellipta Ellipta Ellipta 200-62.5-25 200-62.5-25 200-62.5-2 MCG/INH MCG/INH 5 MCG/INH HYDROcodone HYDROcodone No TID HYDROcodon -Acetaminop -Acetaminop e-Acetamin hen 5-325 hen 5-325 ophen MG MG 5-325 MG Fluoridex Fluoridex No BID Fluoridex 1.1 % 1.1 % 1.1 % Cetirizine Cetirizine No 1{table QD Cetirizine HCl 10 MG HCl 10 MG t} HCl 10 MG Cyclobenzap Cyclobenzap No 1{table QD Cyclobenza rine HCl 5 rine HCl 5 t_at_be chente HCl MG MG dtime_a 5 MG s_neede d} Montelukast Montelukast No 1{table QD Montelukas Sodium 10 Sodium 10 t} t Sodium MG MG 10 MG Ipratropium Ipratropium No 3{ml_as 6xD Ipratropiu -Albuterol -Albuterol _needed m-Albutero 0.5-2.5 (3) 0.5-2.5 (3) } l 0.5-2.5 MG/3ML MG/3ML (3) MG/3ML Rosuvastati Rosuvastati No 1{table QD Rosuvastat n Calcium n Calcium t} in Calcium 40 MG 40 MG 40 MG Ondansetron Ondansetron No TID Ondansetro 8 MG 8 MG n 8 MG Folic Acid Folic Acid No 1{table QD Folic Acid 1 MG 1 MG t} 1 MG Fenofibrate Fenofibrate No 1{table QD Fenofibrat 54 MG 54 MG t_with_ e 54 MG food} Magnesium Magnesium No 1{table QD Magnesium Oxide 500 Oxide 500 t_with_ Oxide 500 MG MG food} MG metFORMIN metFORMIN No 1{table BID metFORMIN HCl 500 MG HCl 500 MG t_with_ HCl 500 MG a_meal} Sodium Sodium No 4{ml} BID Sodium Chloride 7 Chloride 7 Chloride 7 % % % Norvasc 10 Norvasc 10 No QD Norvasc 10 MG MG MG Polyethylen Polyethylen No TID Polyethyle e Glycol e Glycol ne Glycol 3350 17 3350 17 3350 17 GM/SCOOP GM/SCOOP GM/SCOOP Losartan Losartan No 1{table QD Losartan Potassium Potassium t} Potassium 100 MG 100 MG 100 MG Cetirizine Cetirizine No Cetirizine HCl 10 MG HCl 10 MG HCl 10 MG Metoprolol Metoprolol No 1{table BID Metoprolol Tartrate 50 Tartrate 50 t_with_ Tartrate MG MG food} 50 MG Lansoprazol Lansoprazol No 1{capsu QD Lansoprazo e 30 MG e 30 MG le_befo le 30 MG re_a_me al} Budesonide Budesonide No BID Budesonide 0.5 MG/2ML 0.5 MG/2ML 0.5 MG/2ML Montelukast Montelukast No Montelukas Sodium 10 Sodium 10 t Sodium MG MG 10 MG Nicotine Nicotine No 1{patch QD Nicotine Step 1 21 Step 1 21 _to_ski Step 1 21 MG/24HR MG/24HR n} MG/24HR Brovana 15 Brovana 15 No BID Brovana 15 MCG/2ML MCG/2ML MCG/2ML Polyethylen Polyethylen No TID Polyethyle e Glycol e Glycol ne Glycol 3350 17 3350 17 3350 17 GM/SCOOP GM/SCOOP GM/SCOOP Montelukast Montelukast No Montelukas Sodium 10 Sodium 10 t Sodium MG MG 10 MG Magnesium Magnesium No 1{table QD Magnesium Oxide 500 Oxide 500 t_with_ Oxide 500 MG MG food} MG Metoprolol Metoprolol No 1{table BID Metoprolol Tartrate 50 Tartrate 50 t_with_ Tartrate MG MG food} 50 MG traMADol traMADol No QID traMADol HCl 50 MG HCl 50 MG HCl 50 MG Rosuvastati Rosuvastati No 1{table QD Rosuvastat n Calcium n Calcium t} in Calcium 40 MG 40 MG 40 MG Plavix 75 Plavix 75 No 1{table QD Plavix 75 MG MG t} MG metFORMIN metFORMIN No 1{table BID metFORMIN HCl 500 MG HCl 500 MG t_with_ HCl 500 MG a_meal} Fenofibrate Fenofibrate No 1{table QD Fenofibrat 54 MG 54 MG t_with_ e 54 MG food} Trelegy Trelegy No 1{puff} QD Trelegy Ellipta Ellipta Ellipta 200-62.5-25 200-62.5-25 200-62.5-2 MCG/INH MCG/INH 5 MCG/INH Nicotine Nicotine No 1{patch QD Nicotine Step 1 21 Step 1 21 _to_ski Step 1 21 MG/24HR MG/24HR n} MG/24HR Ferrous Ferrous No 1{table QD Ferrous Sulfate 325 Sulfate 325 t} Sulfate (65 Fe) MG (65 Fe) MG 325 (65 Fe) MG Flonase 50 Flonase 50 No 2{spray QD Flonase 50 MCG/ACT MCG/ACT _in_eac MCG/ACT h_nostr il} Cyclobenzap Cyclobenzap No 1{table QD Cyclobenza rine HCl 5 rine HCl 5 t_at_be chente HCl MG MG dtime_a 5 MG s_neede d} Cetirizine Cetirizine No 1{table QD Cetirizine HCl 10 MG HCl 10 MG t} HCl 10 MG Losartan Losartan No 1{table QD Losartan Potassium Potassium t} Potassium 100 MG 100 MG 100 MG Albuterol Albuterol No QID Albuterol Sulfate Sulfate Sulfate (2.5 (2.5 (2.5 MG/3ML) MG/3ML) MG/3ML) 0.083% 0.083% 0.083% Cetirizine Cetirizine No Cetirizine HCl 10 MG HCl 10 MG HCl 10 MG Ondansetron Ondansetron No TID Ondansetro 8 MG 8 MG n 8 MG Fluoridex Fluoridex No BID Fluoridex 1.1 % 1.1 % 1.1 % Sodium Sodium No 4{ml} BID Sodium Chloride 7 Chloride 7 Chloride 7 % % % Oxygen- Oxygen- No Oxygen- Symbicort Symbicort No 2{puffs BID Symbicort 80-4.5 80-4.5 } 80-4.5 MCG/ACT MCG/ACT MCG/ACT Norvasc 10 Norvasc 10 No QD Norvasc 10 MG MG MG Acetaminoph Acetaminoph No 1{capsu QID Acetaminop en 500 MG en 500 MG le_as_n hen 500 MG eeded} Immunizations Ordered Filled Immunization Date Status Comments Sourc e Immunization Name Name Influenza TIV (IM) 2022-02-22 Completed [facility] [place] [facility] Pfizer SARS-CoV-2 2022-02-22 Completed [facility] Vaccination 12+ 00:00[facility] [place] [facility] Moderna SARS-CoV-2 2021-04-16 Completed [facility]iver [facility] of Booster Vaccination 00:00:00 [place] (50 mcg/0.25 mL) Cancer C enter Moderna SARS-CoV-2 2021-04-16 Completed Univer sity of Monovalent Booster 00:00:00 [place] [facility] [place] Vacc[facility] (50 Cancer Ce nter mcg/0.25 mL) FluAD FluAD 2021-03-18 Completed [facility] - 13:33:00 [facility] FluAD FluAD 2021-03-18 Completed [facility] - 13:33:00 [facility] FluAD FluAD 2021-03-18 Completed [facility] - 13:33:00 [facility] FluAD FluAD 2021-03-18 Completed [facility] - 13:33:00 [facility] FluAD FluAD 2021-03-18 Completed [facility] - 13:33:00 [facility] FluAD FluAD 2021-03-18 Completed [facility] - 13:33:00 [facility] FluAD FluAD 2021-03-18 Completed [facility] - 13:33:00 [facility] FluAD FluAD 2021-03-18 Completed [facility] - 13:33:00 [facility] FluAD FluAD 2021-03-18 Completed [facility] - 13:33:00 [facility] FluAD FluAD 2021-03-18 Completed [facility] - 13:33:00 [facility] FluAD FluAD 2021-03-18 Completed [facility] - 13:33:00 [facility] FluAD FluAD 2021-03-18 Completed [facility] - 13:33:00 [facility] FluAD FluAD 2021-03-18 Completed [facility] - 13:33:00 [facility] FluAD FluAD 2021-03-18 Completed [facility] - 13:33:00 [facility] FluAD FluAD 2021-03-18 Completed [facility] - 13:33:00 [facility] FluAD FluAD 2021-03-18 Completed [facility] - 13:33:00 [facility] FluAD FluAD 2021-03-18 Completed [facility] - 13:33:00 [facility] FluAD FluAD 2021-03-18 Completed [facility] - 13:33:00 [facility] FluAD FluAD 2021-03-18 Completed [facility] - 13:33:00 [facility] FluAD FluAD 2021-03-18 Completed [facility] - 13:33:00 [facility] Moderna SARS-CoV-2 2020-08-07 Completed Univer sity of Vaccination 00:00:00 Donn Gibson [facility] Moderna SARS-CoV-2 2020-08-07 Completed [facility] of Vaccination 00:00:[address] [facility] 2020-07-10 Completed Univer sity of Vaccination 00:00:[address] [facility] SARS-[facility]-2 2020-07-10 Completed Univer sity of Vaccination 00:00:00 Donn Gibson [facility] FluAD FluAD 2020-03-15 Completed [facility] - 11:36:00 [facility] FluAD FluAD 2020-03-15 Completed [facility] - 11:36:00 [facility] FluAD FluAD 2020-03-15 Completed [facility] - 11:36:00 [facility] FluAD FluAD 2020-03-15 Completed [facility] - 11:36:00 [facility] FluAD FluAD 2020-03-15 Completed [facility] - 11:36:00 [facility] FluAD FluAD 2020-03-15 Completed [facility] - 11:36:00 [facility] FluAD FluAD 2020-03-15 Completed [facility] - 11:36:00 [facility] FluAD FluAD 2020-03-15 Completed [facility] - 11:36:00 [facility] FluAD FluAD 2020-03-15 Completed [facility] - 11:36:00 [facility] FluAD FluAD 2020-03-15 Completed [facility] - 11:36:00 [facility] FluAD FluAD 2020-03-15 Completed [facility] - 11:36:00 [facility] FluAD FluAD 2020-03-15 Completed [facility] - 11:36:00 [facility] FluAD FluAD 2020-03-15 Completed [facility] - 11:36:00 [facility] FluAD FluAD 2020-03-15 Completed [facility] - 11:36:00 [facility] FluAD FluAD 2020-03-15 Completed [facility] - 11:36:00 [facility] FluAD FluAD 2020-03-15 Completed [facility] - 11:36:00 [facility] FluAD FluAD 2020-03-15 Completed [facility] - 11:36:00 [facility] FluAD FluAD 2020-03-15 Completed [facility] - 11:36:00 [facility] FluAD FluAD 2020-03-15 Completed [facility] - 11:36:00 [facility] FluAD FluAD 2020-03-15 Completed [facility] - 11:36:00 [facility] Influenza Trivalent 2017-03-15 Completed [facility] 00:00:00 Hospital Vital Signs Vital Name Observation Time Observation Value Comments Source height 2022-03-07 11:40:00 66 [in_i] [facility] weight 2022-03-07 11:40:00 132 [lb_av] [facility] temperature 2022-03-07 11:40:00 96.1 [degF] [facility] bmi 2022-03-07 11:40:00 21.3 kg/m2 [facility] WEIGHT 2022-01-15 07:00:00 60.1 kg WEIGHT 2022-01-14 05:00:00 60.6 kg HEIGHT 2022-01-13 23:45:00 167.6 cm WEIGHT 2022-01-13 23:00:00 60.6 kg WEIGHT 2022-01-15 07:00:00 60.1 kg WEIGHT 2022-01-14 05:00:00 60.6 kg HEIGHT 2022-01-13 23:45:00 167.6 cm WEIGHT 2022-01-13 23:00:00 60.6 kg WEIGHT 2022-01-15 07:00:00 60.1 kg WEIGHT 2022-01-14 05:00:00 60.6 kg HEIGHT 2022-01-13 23:45:00 167.6 cm WEIGHT 2022-01-13 23:00:00 60.6 kg height 2021-03-18 10:40:00 66 [in_i] [facility] weight 2021-03-18 10:40:00 169.2 [lb_av] [facility] temperature 2021-03-18 10:40:00 97.1 [degF] [facility] bmi 2021-03-18 10:40:00 27.31 kg/m2 [facility] oximetry 2021-03-18 10:40:00 95 % [facility] respiratory rate 2021-03-18 10:40:00 16 /min [facility] blood pressure 2021-03-18 10:40:00 165 mm[Hg] [facility] blood pressure 2021-03-18 10:40:00 74 mm[Hg] [facility] - diastolic [facility] Systolic blood 2022-04-16 17:10:00 145 mm[Hg] [facility] Diastolic blood 2022-04-16 17:10:00 56 mm[Hg] [facility]ive [facility]ity of pressure [facility] Heart rate 2022-04-16 17:10:00 72 /min [facility] Respiratory rate 2022-04-16 17:10:00 18 /min Univ ers[facility] Oxygen saturation in 2022-04-16 17:10:00 96 /min University Arterial blood by Donn larson Pulse oximetry [facility] Body temperature 2022-04-16 13:25:58 36.39 [facility] Body height 2022-04-06 02:25:[address] [facility] Body weight 2022-04-06 02:25:06 58.6 kg [facility] BMI 2022-04-06 02:25:06 21.27 kg/m2 [facility] Systolic blood 2022-02-02 14:37:00 188 mm[Hg] [facility] pressure Diastolic blood 2022-02-02 14:37:00 74 mm[Hg] [facility] pressure Heart rate 2022-02-02 14:37:00 59 /min [facility] Body height 2022-02-02 14:37:00 167.6 cm [facility] Body weight 2022-02-02 14:37:00 62.596 kg [facility] BMI 2022-02-02 14:37:00 22.27 kg/m2 [facility] Oxygen saturation in 2022-02-02 14:37:00 99 /min [facility] Arterial blood by Pulse oximetry Systolic blood 2022-01-15 12:19:00 139 mm[Hg] [facility] Diastolic blood 2022-01-15 12:19:00 63 mm[Hg] [facility] Heart rate 2022-01-15 12:19:00 76 /min [facility] Body temperature 2022-01-15 12:19:00 36.78 Yocasta [facility] Respiratory rate 2022-01-15 12:19:00 13 /min [facility] Oxygen saturation in 2022-01-15 12:19:00 99 /min [facility] Arterial blood by [facility] Pulse oximetry Body weight 2022-01-15 07:00:00 60.1 kg [facility] BMI 2022-01-15 07:00:00 21.39 kg/m2 [facility] Body height 2022-01-13 23:45:00 167.6 cm [facility] Systolic blood 2022-01-12 17:10:14 159 mm[Hg] [facility] Diastolic blood 2022-01-12 17:10:14 63 mm[Hg] [facility] Heart rate 2022-01-12 17:10:14 63 /min [facility] Body temperature 2022-01-12 17:10:14 36.89 Yocasta [facility] Respiratory rate 2022-01-12 17:10:14 16 /min [facility] Body height 2022-01-12 17:10:14 167 cm [facility] Body weight 2022-01-12 17:10:14 59.6 kg [facility] BMI 2022-01-12 17:10:14 21.37 kg/m2 [facility] Oxygen saturation in 2022-01-12 17:10:14 98 /min [facility] Arterial blood by [facility] Pulse oximetry [facility] Procedures Procedure Date / Time Performing Clinician Source Performed POC GLUCOSE SCREEN 2022-04-16 Ene Polk [facility] 11:53:00 [facility] MAGNESIUM LEVEL 2022-04-16 Silvia Bradley [facility] xas 10:00:00 [facility] PHOSPHORUS LEVEL 2022-04-16 Valentina Walters [facility] 10:00:00 [facility] BASIC METABOLIC PANEL, 2022-04-16 Sudhir [facility] CALCIUM TOTAL 10:00:00 [facility] COMPLETE BLOOD COUNT W/ 2022-04-16 Marina Peguero [facility] INDICES 10:00:00 [facility] Center GLUCOSE LEVEL 2022-04-16 Jam [facility] 10:00:00 [facility] BLOOD UREA NITROGEN 2022-04-16 Jam [facility] 10:00:00 [facility] ELECTROLYTE PANEL 2022-04-16 Jam [facility] 10:00:00 [facility] SERUM CREATININE 2022-04-16 Ene Polk [facility] 10:00:00 [facility] .GLOMERULAR FILTRATION 2022-04-16 Ene Polk [facility] RATE 10:00:00 [facility] CALCIUM LEVEL TOTAL 2022-04-16 Ene Polk [facility] 10:00:00 [facility] POC GLUCOSE SCREEN 2022-04-16 Ene Polk [facility] 05:57:00 [facility] POC GLUCOSE SCREEN 2022-04-15 Jam [facility] 23:31:00 [facility] BASIC METABOLIC PANEL, 2022-04-15 Sudhir [facility] CALCIUM TOTAL 21:41:00 [facility] Center GLUCOSE LEVEL 2022-04-15 Jam [facility] xa 21:41:00 [facility] BLOOD UREA NITROGEN 2022-04-15 Jam [facility] 21:41:00 [facility] ELECTROLYTE PANEL 2022-04-15 Jam [facility] 21:41:00 [facility] SERUM CREATININE 2022-04-15 Ene Polk [facility] 21:41:00 [facility] .GLOMERULAR FILTRATION 2022-04-15 Jam [facility] RATE 21:41:00 MD Jose E Canc er Center CALCIUM LEVEL TOTAL 2022-04-15 Ene Polk [facility] 21:41:00 [facility] POC GLUCOSE SCREEN 2022-04-15 Ene Polk [facility] 18:05:00 [facility] POC GLUCOSE SCREEN 2022-04-15 Ene Polk [facility] 12:37:00 [facility] MAGNESIUM LEVEL 2022-04-15 MirnaSilvia [facility] xa 11:09:00 [facility] BASIC METABOLIC PANEL, 2022-04-15 Sudhir [facility] CALCIUM TOTAL 11:09:00 [facility] COMPLETE BLOOD COUNT W/ 2022-04-15 Sudhir [facility] INDICES 11:09:00 [facility] PHOSPHORUS LEVEL 2022-04-15 [facility] 11[facility]09:00 [facility] Center GLUCOSE LEVEL 2022-04-15 Ene Polk [facility] xa 11:09:00 [facility] BLOOD UREA NITROGEN 2022-04-15 Ene Polk [facility] 11:09:00 [facility] ELECTROLYTE PANEL 2022-04-15 Ene Polk [facility] 11:09:00 [facility] SERUM CREATININE 2022-04-15 Ene Polk [facility] ex 11:09:00 [facility] .GLOMERULAR FILTRATION 2022-04-15 Ene Polk [facility] RATE 11:09:00 [facility] CALCIUM LEVEL TOTAL 2022-04-15 Ene Polk [facility] 11:09:00 [facility] POC GLUCOSE SCREEN 2022-04-15 Ene Polk [facility] 06:01:00 [facility] POC GLUCOSE SCREEN 2022-04-15 Ene Polk [facility] 02:17:00 [facility] BASIC METABOLIC PANEL, 2022-04-14 Sudhir [facility] CALCIUM TOTAL 20:56:00 [facility] GLUCOSE LEVEL 2022-04-14 Ene Polk [facility] xa 20:56:00 [facility] BLOOD UREA NITROGEN 2022-04-14 Ene Polk [facility] 20:56:00 [facility] ELECTROLYTE PANEL 2022-04-14 Ene Polk [facility] 20:56:00 [facility] SERUM CREATININE 2022-04-14 Ene Polk [facility] ex 20:56:00 [facility] .GLOMERULAR FILTRATION 2022-04-14 Ene Polk [facility] RATE 20:56:00 [facility] CALCIUM LEVEL TOTAL 2022-04-14 Ene Polk [facility] 20:56:00 [facility] POC GLUCOSE SCREEN 2022-04-14 Ene Polk [facility] 18:55:00 [facility] POC GLUCOSE SCREEN 2022-04-14 Ene Polk [facility] 11:47:00 [facility] MAGNESIUM LEVEL 2022-04-14 Mirna [facility] [place] xa 09:26:00 [facility] BASIC METABOLIC PANEL, 2022-04-14 [facility] CALCIUM TOTAL 09:26:00 [facility] COMPLETE BLOOD COUNT W/ 2022-04-14 [facility] INDICES 09:26:00 [facility] PHOSPHORUS LEVEL 2022-04-14 Lionel Waltersnirmal [facility] 09:26:00 [facility] Center GLUCOSE LEVEL 2022-04-14 Ene Polk [facility] xa 09:26:00 [facility] BLOOD UREA NITROGEN 2022-04-14 Ene Polk [facility] 09:26:00 [facility] ELECTROLYTE PANEL 2022-04-14 Ene Polk [facility] 09:26:00 [facility] SERUM CREATININE 2022-04-14 Ene Polk [facility] ex 09:26:00 [facility] .GLOMERULAR FILTRATION 2022-04-14 Ene Polk [facility] RATE 09:26:00 [facility] CALCIUM LEVEL TOTAL 2022-04-14 Ene Polk [facility] 09:26:00 [facility] POC GLUCOSE SCREEN 2022-04-14 Ene Polk [facility] 06:10:00 [facility] VERIFY CATHETER TIP 2022-04-14 Andrea Prado [facility] PLACEMENT 04:32:49 [facility] XR CHEST 1 VW POST IMPLANT 2022-04-14 Mckayla Portillo [facility] 03:41:00 [facility] POC GLUCOSE SCREEN 2022-04-14 Ene Polk [facility] 00:42:00 [facility] INSERT VASCULAR ACCESS 2022-04-13 Mckayla Portillo [facility] DEVICE 23:30:00 [facility] VASCULAR ACCESS ULTRASOUND 2022-04-13 Ene Polk [facility] 21:49:53 [facility] BASIC METABOLIC PANEL, 2022-04-13 Marina Peguero [facility] CALCIUM TOTAL 20:11:00 [facility] GLUCOSE LEVEL 2022-04-13 Ene Polk [facility] xa 20:11:00 [facility] BLOOD UREA NITROGEN 2022-04-13 Ene Polk [facility] 20:11:00 [facility] ELECTROLYTE PANEL 2022-04-13 Ene Polk [facility] 20:11:00 [facility] SERUM CREATININE 2022-04-13 Ene Polk [facility] exas 20:11:00 [facility] .GLOMERULAR FILTRATION 2022-04-13 Ene Polk [facility] RATE 20:11:00 [facility] CALCIUM LEVEL TOTAL 2022-04-13 Ene Polk [facility] 20:11:00 [facility] POC GLUCOSE SCREEN 2022-04-13 Ene Polk [facility] 18:23:00 [facility] GENERAL LABORATORY ADD ON 2022-04-13 Valent[facility] 14:39:00 [facility] POC GLUCOSE SCREEN 2022-04-13 Ene Polk [facility] 12:07:00 [facility] MAGNESIUM LEVEL 2022-04-13 Silvia Bradley [facility] xas 09:19:00 [facility] BASIC METABOLIC PANEL, 2022-04-13 [facility] CAL[facility] TOTAL 09:19:00 [facility] COMPLETE BLOOD COUNT W/ 2022-04-13 Marina Peguero [facility] INDICES 09:19:00 [facility] Center GLUCOSE LEVEL 2022-04-13 Ene Polk [facility] xa 09:19:00 [facility] BLOOD UREA NITROGEN 2022-04-13 Ene Polk [facility] 09:19:00 [facility] ELECTROLYTE PANEL 2022-04-13 Ene Polk [facility] 09:19:00 [facility] SERUM CREATININE 2022-04-13 Jam [facility] ex 09:19:00 [facility] .GLOMERULAR FILTRATION 2022-04-13 Ene Polk [facility] RATE 09:19:00 [facility] CALCIUM LEVEL TOTAL 2022-04-13 Ene Polk [facility] 09:19:00 [facility] PHOSPHORUS LEVEL 2022-04-13 Ene Polk [facility] ex 09:19:00 [facility] POC GLUCOSE SCREEN 2022-04-13 Ene Polk [facility] 06:29:00 [facility] POC GLUCOSE SCREEN 2022-04-13 Ene Polk [facility] 00:04:00 [facility] GENERAL LABORATORY ADD ON 2022-04-12 Altheakareycornell Valentina [facility] TEST 21:51:00 [facility] BASIC METABOLIC PANEL, 2022-04-12 Marina Peguero [facility] CALCIUM TOTAL 20:33:00 [facility] Center GLUCOSE LEVEL 2022-04-12 Ene Polk [facility] xa 20:33:00 [facility] BLOOD UREA NITROGEN 2022-04-12 Jam [facility] 20:33:00 [facility] ELECTROLYTE PANEL 2022-04-12 Ene Polk [facility] 20:33:00 [facility] SERUM CREATININE 2022-04-12 Ene Polk [facility] ex 20:33:00 [facility] .GLOMERULAR FILTRATION 2022-04-12 Ene Polk [facility] RATE 20:33:00 [facility] er Center CALCIUM LEVEL TOTAL 2022-04-12 Ene Polk [facility] [place] 20:33:00 [facility] NT PRO BNP 2022-04-12 Ene Polk [facility] xas 20:33:00 [facility] POC GLUCOSE SCREEN 2022-04-12 Ene Polk [facility] 17:55:00 [facility] POC GLUCOSE SCREEN 2022-04-12 Ene Polk [facility] 12:14:00 [facility] Center MAGNESIUM LEVEL 2022-04-12 Mirna [facility] [place] xas 09:35:00 [facility] BASIC METABOLIC PANEL, 2022-04-12 [facility] CALCIUM TOTAL 09:35:00 [facility] COMPLETE BLOOD COUNT W/ 2022-04-12 [facility] INDICES 09:35:00 [facility] Center GLUCOSE LEVEL 2022-04-12 Ene Polk [facility] xa 09:35:00 [facility] BLOOD UREA NITROGEN 2022-04-12 Jam [facility] [place] 09:35:00 [facility] ELECTROLYTE PANEL 2022-04-12 Jam [facility] 09:35:00 [facility] SERUM CREATININE 2022-04-12 Ene Polk [facility] exas 09:35:00 [facility] .GLOMERULAR FILTRATION 2022-04-12 Ene Polk [facility] RATE 09:35:00 [facility] CALCIUM LEVEL TOTAL 2022-04-12 Jam [facility] [place] 09:35:00 [facility] POC GLUCOSE SCREEN 2022-04-12 Ene Polk [facility] 06:07:00 [facility] BASIC METABOLIC PANEL, 2022-04-12 [facility] CALCIUM TOTAL 00:20:00 [facility] er Center GLUCOSE LEVEL 2022-04-12 [facility] [place] 00:20:00 [facility] BLOOD UREA NITROGEN 2022-04-12 [facility] 00:20:00 [facility] ELECTROLYTE PANEL 2022-04-12 [facility] 00:20:00 [facility] SERUM CREATININE 2022-04-12 [facility] 00:20:00 [facility] .GLOMERULAR FILTRATION 2022-04-12 [facility] R[facility] 00:20:00 [facility] CALCIUM LEVEL TOTAL 2022-04-12 [facility] 00:20:00 [facility] POC GLUCOSE SCREEN 2022-04-12 Jam [facility] 00:04:00 [facility] POC GLUCOSE SCREEN 2022-04-11 Jam [facility] 18:55:00 [facility] COMPLETE BLOOD COUNT W/ 2022-04-11 [facility] DIFFERENTIAL 18:44:00 [facility] Results CBC 2022-04-11 [facility] 18:44:00 [facility] MANUAL DIFFERENTIAL 2022-04-11 [facility] 18:44:00 [facility] BASIC METABOLIC PANEL, 2022-04-11 [facility] CALCIUM TOTAL 13:59:00 [facility] GLUCOSE LEVEL 2022-04-11 [facility] [place] 13:59:00 [facility] BLOOD UREA NITROGEN 2022-04-11 [facility] 13:59:00 [facility] ELECTROLYTE PANEL 2022-04-11 [facility] 13:59:00 [facility] SERUM CREATININE 2022-04-11 [facility] 13:59:00 [facility] .GLOMERULAR FILTRATION 2022-04-11 [facility] [place] RATE 13:59:00 [facility] CALCIUM LEVEL TOTAL 2022-04-11 Valentina Walters [facility] 13:59:00 [facility] GENERAL LABORATORY ADD ON 2022-04-11 Eric Fitzpatrick [facility] TEST 13:54:00 [facility] POC GLUCOSE SCREEN 2022-04-11 Ene Polk [facility] 12:43:00 [facility] APTT 2022-04-11 Craig, [facility] xas 09:30:00 [facility] MAGNESIUM LEVEL 2022-04-11 Mirna [facility] [place] xas 09:30:00 [facility] GLUCOSE LEVEL 2022-04-11 Eric Fitzpatrick [place] [facility] [place] 09:30:00 [facility] BLOOD UREA NITROGEN 2022-04-11 Eric Fitzpatrick [facility] 09:30:00 [facility] ELECTROLYTE PANEL 2022-04-11 Eric Fitzpatrick [facility] 09:30:00 [facility] SERUM CREATININE 2022-04-11 Eric Fitzpatrick [facility] 09:30:00 [facility] .GLOMERULAR FILTRATION 2022-04-11 Eric Fitzpatrick [facility] RATE 09:30:00 [facility] CALCIUM LEVEL TOTAL 2022-04-11 Eric Fitzpatrick [facility] 09:30:00 [facility] ALBUMIN LEVEL 2022-04-11 Eric Fitzpatrick [place] [facility] [place] 09:30:00 [facility] ALKALINE PHOSPHATASE 2022-04-11 Eric Fitzpatrick [facility] 09:30:00 [facility] ALANINE AMINOTRANSFERASE 2022-04-[address] [facility] 09:30:00 [facility] ASPARTATE AMINOTRANSFERASE 2022-04-11 Eric Fitzpatrick U n[facility]The [facility] [place] [facility] 09:30:00 [facility] TOTAL PROTEIN 2022-04-11 RazMaria [facility] [place] 09:30:00 [facility] FRACTIONATED BILIRUBIN 2022-04-11 [facility] 09:30:00 [facility] POC GLUCOSE SCREEN 2022-04-11 Jam [facility] 06:45:00 [facility] POC GLUCOSE SCREEN 2022-04-11 Jam [facility] 02:53:00 [facility] POC GLUCOSE SCREEN 2022-04-10 Jam [facility] 23:46:00 [facility] XR CHEST 1 VW 2022-04-10 [facility] [place] 23:22:07 [facility] COMPREHENSIVE METABOLIC 2022-04-10 [facility] PANEL 21:43:00 [facility] PHOSPHORUS LEVEL 2022-04-10 [facility] 21:43:00 [facility] MAGNESIUM LEVEL 2022-04-10 [facility] [place] 21:43:00 [facility] VITAMIN D 25 HYDROXY LEVEL 2022-04-10 [facility] 21:43:00 [facility] GLUCOSE LEVEL 2022-04-10 [facility] [place] 21:43:00 [facility] BLOOD UREA NITROGEN 2022-04-10 [facility] 21:43:00 [facility] ELECTROLYTE PANEL 2022-04-10 [facility] 21:43:00 [facility] SERUM CREATININE 2022-04-10 [facility] 21:43:00 [facility] .GLOMERULAR FILTRATION 2022-04-10 [facility] RATE 21:43:00 [facility] CALCIUM LEVEL TOTAL 2022-04-10 [facility] 21:43:00 [facility] ALBUMIN LEVEL 2022-04-10 [facility] [place] 21:43:00 [facility] ALKALINE PHOSPHATASE 2022-04-10 [facility] 21:43:00 [facility] ALANINE AMINOTRANSFERASE 2022-04-10 [facility] hospital[facility] sarabia Uni versThe [facility] [place] [facility] 21:43:00 [facility] ASPARTATE AMINOTRANSFERASE 2022-04-10 [facility] U niversThe [facility] [place] [facility] 21:43:00 [facility] TOTAL PROTEIN 2022-04-10 [facility] [place] 21:43:00 [facility] FRACTIONATED BILIRUBIN 2022-04-10 [facility] 21:43:00 [facility] POC GLUCOSE SCREEN 2022-04-10 Ene Polk [facility] 18:51:00 [facility] US LEG VENOUS DOPPLER 2022-04-10 Eric Fitzpatrick [facility] BILATERAL 17:44:33 [facility] GENERAL LABORATORY ADD ON 2022-04-10 [facility] Lioneltad Un [facility] TEST 15:28:00 [facility] APTT 2022-04-10 Rafa [facility] xas 12:55:00 [facility] BASIC METABOLIC PANEL, 2022-04-10 Marina Peguero [facility] CALCIUM TOTAL 12:55:00 [facility] MAGNESIUM LEVEL 2022-04-10 [facility] 12:55:00 [facility] THYROID STIMULATING 2022-04-10 [facility] HORMONE 12:55:00 [facility] FREE THYROXINE 2022-04-10 [facility] 12:55:00 [facility] ALDOSTERONE 2022-04-10 [facility] ex[facility] 12:55:00 [facility] RENIN ACTIVITY, PLASMA 2022-04-10 [facility] 12:55:00 [facility] Center GLUCOSE LEVEL 2022-04-10 Ene Polk [facility] xa 12:55:00 [facility] BLOOD UREA NITROGEN 2022-04-10 Ene Polk [facility] 12:55:00 [facility] ELECTROLYTE PANEL 2022-04-10 Ene Polk [facility] 12:55:00 [facility] SERUM CREATININE 2022-04-10 Ene Polk [facility] ex 12:55:00 [facility] .GLOMERULAR FILTRATION 2022-04-10 Ene Polk [facility] RATE 12:55:00 [facility] CALCIUM LEVEL TOTAL 2022-04-10 Ene Polk [facility] 12:55:00 [facility] NT PRO BNP 2022-04-10 Ene Polk [facility] 12:55:00 [facility] POC GLUCOSE SCREEN 2022-04-10 Ene Polk [facility] 03:37:00 [facility] COMPREHENSIVE METABOLIC 2022-04-10 [facility] PANEL 01:21:00 [facility] Center GLUCOSE LEVEL 2022-04-10 Ene Polk [facility] 01:21:00 [facility] BLOOD UREA NITROGEN 2022-04-10 Jam [facility] 01:21:00 [facility] ELECTROLYTE PANEL 2022-04-10 Ene Polk [facility] 01:21:00 [facility] SERUM CREATININE 2022-04-10 Ene Polk [facility] 01:21:00 [facility] .GLOMERULAR FILTRATION 2022-04-10 Ene Polk [facility] RATE 01:21:00 [facility] CALCIUM LEVEL TOTAL 2022-04-10 Ene Polk [facility] 01:21:00 [facility] ALBUMIN LEVEL 2022-04-10 Ene Polk [facility] xa 01:21:00 [facility] ALKALINE PHOSPHATASE 2022-04-10 Ene Polk [facility] 01:21:00 [facility] ALANINE AMINOTRANSFERASE 2022-04-10 Ene Polk [facility] 01:21:00 [facility] ASPARTATE AMINOTRANSFERASE 2022-04-10 Ene Polk [facility] 01:21:00 [facility] TOTAL PROTEIN 2022-04-10 Ene Polk [facility] xa 01:21:00 [facility] FRACTIONATED BILIRUBIN 2022-04-10 Ene Polk [facility] 01:21:00 [facility] EKG, 12-LEAD (PORTABLE) 2022-04-10 [facility] 00:00:00 [facility] POC GLUCOSE SCREEN 2022-04-09 Ene Polk [facility] 23:06:00 [facility] POC GLUCOSE SCREEN 2022-04-09 Ene Polk [facility] 19:10:00 [facility] COMPREHENSIVE METABOLIC 2022-04-09 [facility] PANEL 16:53:00 [facility] GLUCOSE LEVEL 2022-04-09 Ene Polk [facility] 16:53:00 [facility] BLOOD UREA NITROGEN 2022-04-09 [facility] 16:53:00 [facility] ELECTROLYTE PANEL 2022-04-09 Ene Polk [facility] 16:53:00 [facility] SERUM CREATININE 2022-04-09 Ene Polk [facility] ex 16:53:00 [facility] .GLOMERULAR FILTRATION 2022-04-09 Ene Polk [facility] RATE 16:53:00 [facility] CALCIUM LEVEL TOTAL 2022-04-09 Jam [facility] 16:53:00 [facility] ALBUMIN LEVEL 2022-04-09 Ene Polk [facility] xa 16:53:00 [facility] ALKALINE PHOSPHATASE 2022-04-09 Ene Polk [facility] 16:53:00 [facility] ALANINE AMINOTRANSFERASE 2022-04-09 Ene Polk [facility] 16:53:00 [facility] ASPARTATE AMINOTRANSFERASE 2022-04-09 Ene Polk [facility] 16:53:00 [facility] TOTAL PROTEIN 2022-04-09 Ene Polk [facility] xa 16:53:00 [facility] FRACTIONATED BILIRUBIN 2022-04-09 Ene Polk [facility] 16:53:00 [facility] BASIC METABOLIC PANEL, 2022-04-09 [facility] 14:08:00 [facility] COMPLETE BLOOD COUNT W/ 2022-04-09 Sudhir [facility] DIFFERENTIAL 14:08:00 [facility] Results CBC 2022-04-09 Ene Polk [facility] xa 14:08:00 [facility] MANUAL DIFFERENTIAL 2022-04-09 Ene Polk [facility] 14:08:00 [facility] GLUCOSE LEVEL 2022-04-09 Ene Polk [facility] xa 14:08:00 [facility] ELECTROLYTE PANEL 2022-04-09 Ene Polk [facility] 14:08:00 [facility] SERUM CREATININE 2022-04-09 Ene Polk [facility] exas 14:08:00 [facility] .GLOMERULAR FILTRATION 2022-04-09 Ene Polk [facility] RATE 14:08:00 [facility] CALCIUM LEVEL TOTAL 2022-04-09 Jam [facility] 14:08:00 [facility] BLOOD UREA NITROGEN 2022-04-09 [facility] 14:08:00 [facility] POC GLUCOSE SCREEN 2022-04-09 Ene Polk [facility] 12:00:00 [facility] APTT 2022-04-09 Rafa [facility] xa 08:55:00 [facility] POC GLUCOSE SCREEN 2022-04-09 Ene Polk [facility] 03:28:00 [facility] EKG, 12-LEAD (PORTABLE) 2022-04-09 [facility] 00:00:00 [facility] POC GLUCOSE SCREEN 2022-04-08 Ene Polk [facility] 23:16:00 [facility] [facility] P[facility] GLUCOSE SCREEN 2022-04-08 Ene Polk [facility] 18:22:00 [facility] COMPLETE BLOOD COUNT W/ 2022-04-08 Kellee [facility] INDICES 14:53:00 [facility] APTT 2022-04-08 Ene Polk [facility] xa 11:35:00 [facility] Center GLUCOSE LEVEL 2022-04-08 Ene Polk [facility] xa 11:35:00 [facility] BLOOD UREA NITROGEN 2022-04-08 Ene Polk [facility] 11:35:00 [facility] ELECTROLYTE PANEL 2022-04-08 Ene Polk [facility] 11:35:00 [facility] SERUM CREATININE 2022-04-08 Ene Polk [facility] ex 11:35:00 [facility] .GLOMERULAR FILTRATION 2022-04-08 Ene Polk [facility] RATE 11:35:00 [facility] Center CALCIUM LEVEL TOTAL 2022-04-08 Ene Polk [facility] 11:35:00 [facility] Center MAGNESIUM LEVEL 2022-04-08 Ene Polk [facility] 11:35:00 [facility] Center PHOSPHORUS LEVEL 2022-04-08 Ene Polk [facility] ex 11:35:00 [facility] POC GLUCOSE SCREEN 2022-04-08 Ene Polk [facility] 10:56:00 [facility] COMPLETE BLOOD COUNT W/ 2022-04-08 Kellee [facility] DIFFERENTIAL 09:12:00 [facility] Results CBC 2022-04-08 [facility] 09:12[facility]00 [facility] er Center MANUAL DIFFERENTIAL 2022-04-08 [facility] 09:12[facility]00 [facility] POC GLUCOSE SCREEN 2022-04-08 Ene Polk [facility] 04:44:00 [facility] POC GLUCOSE SCREEN 2022-04-07 Ene Polk [facility] 23:09:00 [facility] POC GLUCOSE SCREEN 2022-04-07 Ene Polk [facility] 17:17:00 [facility] POC GLUCOSE SCREEN 2022-04-07 Ene Polk [facility] 10:53:00 [facility] BASIC METABOLIC PANEL, 2022-04-07 [facility] CALCIUM TOTAL 05:17:00 [facility] COMPLETE BLOOD COUNT W/ 2022-04-07 [facility] 05:17:00 [facility] MAGNESIUM LEVEL 2022-04-07 [facility] [place] 05:17:00 [facility] Center PHOSPHORUS LEVEL 2022-04-07 [facility] exas 05:17:00 [facility] APTT 2022-04-07 Ene Polk [facility] 05:17:00 [facility] Center GLUCOSE LEVEL 2022-04-07 [facility] [place] 05:17:00 [facility] BLOOD UREA NITROGEN 2022-04-07 [facility] 05:17:00 [facility] ELECTROLYTE PANEL 2022-04-07 [facility] 05:17:00 [facility] SERUM CREATININE 2022-04-07 [facility] exas 05:17:00 [facility] .GLOMERULAR FILTRATION 2022-04-07 [facility] RATE 05:17:00 [facility] CALCIUM LEVEL TOTAL 2022-04-07 [facility] 05:17:00 [facility] Results CBC 2022-04-07 [facility] [place] 05:17:00 [facility] MANUAL DIFFERENTIAL 2022-04-07 [facility] [place] 05:17:00 [facility] POC GLUCOSE SCREEN 2022-04-07 Ene oPlk [facility] 04:23:00 [facility] APTT 2022-04-06 Ene Polk [facility] xa 23:21:00 [facility] er Center POC GLUCOSE SCREEN 2022-04-06 Ene Polk [facility] 22:33:00 [facility] POC GLUCOSE SCREEN 2022-04-06 Ene Polk [facility] 17:20:00 [facility] APTT 2022-04-06 Ene Polk [facility] xas 15:36:00 [facility] POC GLUCOSE SCREEN 2022-04-06 Ene Polk [facility] 10:27:00 [facility] TYPE AND SCREEN 2022-04-06 Ene Polk [facility] xas 07:17:00 [facility] COMPLETE BLOOD COUNT W/ 2022-04-06 Rafa [facility] DIFFERENTIAL 07:17:00 [facility] BASIC METABOLIC PANEL, 2022-04-06 [facility] CALCIUM TOTAL 07:17:00 [facility] MAGNESIUM LEVEL 2022-04-06 [facility] [place] 07:17:00 [facility] PHOSPHORUS LEVEL 2022-04-06 [facility] exas 07:17:00 [facility] GLUCOSE LEVEL 2022-04-[address] [place] 07:17:00 [facility] BLOOD UREA NITROGEN 2022-04-06 [facility] 07:17:00 [facility] ELECTROLYTE PANEL 2022-04-06 [facility] 07:17:00 [facility] SERUM CREATININE 2022-04-06 [facility] exas 07:17:00 [facility] .GLOMERULAR FILTRATION 2022-04-06 [facility] RATE 07:17:00 [facility] CALCIUM LEVEL TOTAL 2022-04-06 [facility] [place] 07:17:00 [facility] APTT 2022-04-06 Ene Polk [facility] xas 07:17:00 [facility] ABORH 2022-04-06 Ene Polk [facility] xas 07:17:00 [facility] Results CBC 2022-04-06 [facility] xas 07:17:00 [facility] MANUAL DIFFERENTIAL 2022-04-06 Rafa [facility] [place] 07:17:00 [facility] Center ANTIBODY SCREEN 2022-04-06 Ene Polk [facility] xas 07:17:00 [facility] CLOT EXPIRATION DATE 2022-04-06 Ene Polk [facility] 07:17:00 [facility] TMP INTERPRETATION 2022-04-06 Ene Polk [facility] ANTIBODY SCREEN NEGATIVE 07:17:00 MD [facility] POC GLUCOSE SCREEN 2022-04-06 Ene Polk [facility] 04:45:00 [facility] THYROXINE 2022-04-[address] [place] 23:05:00 [facility] THYROID STIMULATING 2022-04-05 [facility] [place] HORMONE 23:05:00 [facility] BASIC METABOLIC PANEL, 2022-04-05 [facility] CALCIUM TOTAL 23:05:00 [facility] ALBUMIN LEVEL 2022-04-05 [facility] 23:05:00 [facility] MAGNESIUM LEVEL 2022-04-05 Kellee, [facility] [place] 23:05:00 [facility] PHOSPHORUS LEVEL 2022-04-05 [facility] exas 23:05:00 [facility] COMPLETE BLOOD COUNT W/ 2022-04-05 [facility] DIFFERENTIAL 23:05:00 [facility] PTH INTACT 2022-04-05 [facility] 23:05:00 [facility] APTT 2022-04-05 Craig, [facility] xas 23:05:00 [facility] GLUCOSE LEVEL 2022-04-05 Glaelaine, [facility] x[place] 23:05:00 [facility] BLOOD UREA NITROGEN 2022-04-05 [facility] [place] 23:05:00 [facility] ELECTROLYTE PANEL 2022-04-05 Kellee, [facility] 23:05:00 [facility] SERUM CREATININE 2022-04-05 [facility] exas 23:05:00 [facility] .GLOMERULAR FILTRATION 2022-04-05 [facility] RATE 23:05:00 [facility] CALCIUM LEVEL TOTAL 2022-04-05 [facility] [place] 23:05:00 [facility] Results CBC 2022-04-05 [facility] [place] 23:05:00 [facility] MANUAL DIFFERENTIAL 2022-04-05 [facility] [place] 23:05:00 [facility] OR ARTERIAL BLOOD GAS PLUS 2022-04-05 Joe Wolfe [facility] 18:50:00 [facility] TRANSFUSE RED BLOOD CELLS 2022-04-05 [facility] 17:41:00 [facility] TRANSFUSE RED BLOOD CELLS 2022-04-05 [facility] 17:04:00 [facility] PREPARE RBC 2022-04-05 Provider, Bernie [facility] 16:50:00 [facility] PATHOLOGY SURGICAL 2022-04-05 Ene Polk [facility] INTERPRETATION 16:47:00 [facility] OR ARTERIAL BLOOD GAS PLUS 2022-04-05 Joe Wolfe [facility] 16:14:00 [facility] OR ARTERIAL BLOOD GAS PLUS 2022-04-05 Joe Wolfe [facility] 14:30:00 [facility] COMPLETE LARYNGECTOMY, 2022-04-05 Ene Polk [facility] WITHOUT RADICAL NECK 12:30:00 MD Dorantes [facility] Center FREE MUSCLE OR 2022-04-05 Tripp Doran [facility] MYOCUTANEOUS FLAP WITH 12:30:00 MD [facility] MICRVASCULAR ANASTOMOSIS Center EXCISION OF CERVICAL 2022-04-05 Brenton Molina [facility] TRACHEAL CARCINOMA 12:30:00 MD Dorantes [facility] PHARYNGECTOMY - LIMITED 2022-04-05 Ene Polk [facility] 12:30:00 [facility] FULL THICKNESS GRAFT OF 2022-04-05 Tripp Doran [facility] SCALP, ARMS, AND/OR LEGS 12:30:00 MD Gibson [facility] POC GLUCOSE SCREEN 2022-04-05 Ene Polk [facility] 12:16:00 [facility] POTASSIUM LEVEL 2022-04-04 Dulce Washington [facility] exas 17:19:00 [facility] COVID-19 (SARS-COV-2) 2022-04-04 Ene Polk [facility] PCR-ASYMPTOMATIC MC 16:55:00 [facility] BLOOD UREA NITROGEN 2022-03-28 Dulce Washington [facility] 19:11:00 [facility] COMPLETE BLOOD COUNT W/ 2022-03-28 Dulce Washington [facility] DIFFERENTIAL 19:11:00 [facility] SERUM CREATININE 2022-03-28 Dulce Washington [facility] 19:11:00 [facility] ELECTROLYTE PANEL 2022-03-28 Dulce Washington [facility] 19:11:00 [facility] GLUCOSE, RANDOM 2022-03-28 Dulce Washington [facility] exas 19:11:00 [facility] TYPE AND SCREEN 2022-03-28 Dulce Washington [facility] exas 19:11:00 [facility] HEMOGLOBIN A1C 2022-03-28 Dulce Washington [facility] exas 19:11:00 [facility] THYROID STIMULATING 2022-03-28 Dulce Washington [facility] HORMONE 19:11:00 [facility] FREE THYROXINE 2022-03-28 Dulce Washington [facility] exas 19:11:00 [facility] MAGNESIUM LEVEL 2022-03-28 Dulce Washington [facility] exas 19:11:00 [facility] SERUM CREATININE 2022-03-28 Dulce Washington [facility] 19:11:00 [facility] .GLOMERULAR FILTRATION 2022-03-28 Dulce Washington [facility] RATE 19:11:00 [facility] Results CBC 2022-03-28 Dulce Washington [facility] exas 19:11:00 [facility] MANUAL DIFFERENTIAL 2022-03-28 Dulce Washington [facility] 19:11:00 [facility] ABORH 2022-03-28 Dulce Washington [facility] exas 19:11:00 [facility] ANTIBODY SCREEN 2022-03-28 Dulce Washington [facility] exas 19:11:00 [facility] CLOT EXPIRATION DATE 2022-03-28 Dulce Washington [facility] 19:11:00 [facility] TMP INTERPRETATION 2022-03-28 Dulce [place] [facility] ANTIBODY SCREEN NEGATIVE 19:11:00 MD Arthur matamoros [facility] TMP INTERPRETATION 2022-03-28 Dulce Washington [place] [facility] EXCEPTION PREOP EXPIRATION 19:11:00 MD Yue martinez [facility] TMP CROSSMATCH 2022-03-28 Dulce Washington [facility] exas INTERPRETATION 19:11:00 [facility] POC GLYCOHEMOGLOBIN A1C 2022-03-28 Sebastien Neville [facility] 16:07:[address] [facility] [address] SOFT TISSUE NECK W 2022-03-28 Bryant Hyatt [facility] CONTRAST 12:31:00 [facility] POC CREATININE 2022-03-28 Ene Polk [facility] xas 12:20:00 [facility] XR CHEST 2 VW 2022-02-24 Nahumsheila [facility] xa 16:26:36 [facility] LOWER RESPIRATORY CULTURE 2022-02-23 Kosta Ahuja [facility] W/ GRAM STAIN 17:28:00 [facility] CV STRESS TEST NUCLEAR 2022-02-02 Venkat [facility] CARDIO 20:39:48 NM MYOCARDIAL PERFUSION 2022-02-02 [facility] 1 DAY 20:39:48 CT SOFT TISSUE NECK W 2022-02-01 Kosta Ahuja [facility] CONTRAST 16:50:56 [facility] TTE COMPLETE, WO CONTRAST, 2022-01-30 Venkat Davis [facility] W DOPPLER ([id number]) 16:15:01 6 MINUTE WALK TEST 2022-01-20 Liliana Martin [place] [facility] [place] 12:55:37 [facility] POCT-GLUCOSE METER 2022-01-15 Ali, Hiba Royer [facility] 12:14:00 [facility] POCT-GLUCOSE METER 2022-01-15 Ali, Hiba Royer [facility] 11:40:00 Medical Center HEMOGLOBIN AND HEMATOCRIT 2022-01-15 Ali, Hiba Royer [facility] 09:05:00 [facility] POCT-GLUCOSE METER 2022-01-15 Ali, Hiba Royer [facility] 05:46:00 [facility] CBC W/PLT COUNT & AUTO 2022-01-15 Ali, Hiba [facility] DIFFERENTIAL 04:41:00 [facility] BASIC METABOLIC PANEL 2022-01-15 Ali, [facility] 04:41:00 [facility] MAGNESIUM 2022-01-15 Ali, Hiba Royer [facility] 04:41:00 [facility] CBC W/PLT COUNT & AUTO 2022-01-15 Ali, Hiba [facility] DIFFERENTIAL 04:41:00 [facility] POCT-GLUCOSE METER 2022-01-14 Ali, Hiba Royer [facility] 23:30:00 [facility] POCT-GLUCOSE METER 2022-01-14 Ali, Hiba Royer [facility] 17:21:00 [facility] POCT-GLUCOSE METER 2022-01-14 Ali, Hiba Royer [facility] 12:10:00 [facility] CTA CAROTID 2022-01-14 Ali, Cuonga Royer [facility] 11:23:00 [facility] POCT-GLUCOSE METER 2022-01-14 Ali, Cuonga Royer [facility] 10:12:00 [facility] BASIC METABOLIC PANEL 2022-01-[address] [facility] 01:37:00 [facility] HEPATIC FUNCTION PANEL 2022-01-[address] [facility] 01:37:00 [facility] PROTHROMBIN TIME/INR 2022-01-[address] [facility] 01:37:00 [facility] CBC W/PLT COUNT & AUTO 2022-01-[address] [facility] DIFFERENTIAL 01:37:00 [facility] MAGNESIUM 2022-01-[address] [facility] 01:37:00 [facility] HIGH SENSITIVITY TROPONIN 2022-01-14 Yun Tyler [facility] 01:37:00 [facility] CBC W/PLT COUNT & AUTO 2022-01-[address] [facility] DIFFERENTIAL 01:37:00 [facility] XR CHEST 1 VIEW PORTABLE / 2022-01-[address] [facility] BEDSIDE 01:36:00 [facility] ECG 12-LEAD 2022-01-[address] [facility] 01:26:33 [facility] ECG 12-LEAD 2022-01-14 Unknown, Hl7 Doctor [facility] 01:26:33 [facility] ECG 12-LEAD 2022-01-14 Unknown, Hl7 Doctor [facility] 01:26:33 [facility] COMPLETE BLOOD COUNT W/ 2022-01-12 [facility] 15:00:00 [facility] COMPREHENSIVE METABOLIC 2022-01-12 [facility] PANEL 15:00:00 [facility] C REACTIVE PROTEIN 2022-01-12 [facility] 15:00:00 [facility] SEDIMENTATION RATE 2022-01-12 [facility] NON-AUT[facility]ATED 15:00:00 [facility] Results CBC 2022-01-12 [facility] 15:00:00 [facility] MANUAL DIFFERENTIAL 2022-01-12 Seymour [facility] 15:00:00 [facility] GLUCOSE LEVEL 2022-01-12 [facility] 15:00:00 [facility] BLOOD UREA NITROGEN 2022-01-12 [facility] 15:00:00 [facility] ELECTROLYTE PANEL 2022-01-12 [facility] 15:00:00 [facility] SERUM CREATININE 2022-01-12 [facility] 15:00:00 [facility] .GLOMERULAR FILTRATION 2022-01-12 [facility] RATE 15:00:00 [facility] CALCIUM LEVEL TOTAL 2022-01-12 [facility] 15:00:00 [facility] ALBUMIN LEVEL 2022-01-12 [facility] 15:00:00 [facility] ALKALINE PHOSPHATASE 2022-01-12 [facility] 15:00:00 [facility] ALANINE AMINOTRANSFERASE 2022-01-12 [facility] 15:00:00 [facility] ASPARTATE AMINOTRANSFERASE 2022-01-12 [facility] 15:00:00 [facility] TOTAL PROTEIN 2022-01-12 [facility] xa 15:00:00 [facility] FRACTIONATED BILIRUBIN 2022-01-12 [facility] 15:00:00 [facility] FL MODIFIED BARIUM SWALLOW 2021-12-30 Bryant Hyatt [facility] W SPEECH 15:26:41 [facility] VERIFY CATHETER TIP 2021-12-28 Romeo Brandt [facility] PLACEMENT 23:30:00 [facility] XR CHEST 2 VW POST IMPLANT 2021-12-28 [facility] 23:01:47 [facility] INSERT VASCULAR ACCESS 2021-12-28 [facility] DEVICE 22:25:00 [facility] VASCULAR ACCESS ULTRASOUND 2021-12-28 [facility] 20:17:34 [facility] LOWER RESPIRATORY CULTURE 2021-12-16 Ene Polk [facility] W/ GRAM STAIN 14:21:[address] [facility] [address] SOFT TISSUE NECK W 2021-12-16 Ene Polk [facility] CONTRAST 12:03:03 [facility] XR CHEST 2 VW 2021-12-09 Shirley Mcghee [place] [facility] [place] 14:09:33 [facility] POC GLUCOSE SCREEN 2021-11-18 Hilario Pardo [facility] 03:16:00 [facility] URINALYSIS WITH 2021-11-18 Bonnie [facility] xas MICROSCOPIC IF INDICATED 02:40:00 MD Arthur matamoros [facility] URINE CULTURE 2021-11-18 Bonnie [facility] xas 02:40:00 [facility] ARTERIAL BLOOD GAS 2021-11-18 Hilario Pardo [facility] 02:33:[address] [facility] [address] SOFT TISSUE NECK W 2021-11-18 Bonnie [facility] CONTRAST 00:30:[address] [facility] [address] CHEST PULMONARY 2021-11-18 Bonnie [facility] EMBOLISM W CONTRAST 00:30:00 [facility] POC VENOUS BLOOD GAS + 2021-11-17 Hilario Pardo [facility] LACTATE 19:40:00 [facility] COMPLETE BLOOD COUNT W/ 2021-11-17 [facility] 19:37:00 [facility] COMPREHENSIVE METABOLIC 2021-11-17 [facility] PANEL 19:37:00 [facility] MAGNESIUM LEVEL 2021-11-17 [facility] [place] 19:37:00 [facility] PHOSPHORUS LEVEL 2021-11-17 [facility] 19:37:00 [facility] PROCALCITONIN 2021-11-17 [facility] x[place] 19:37:00 [facility] CARDIAC PANEL 2021-11-17 Bonnie [facility] Te [place] 19:37:00 [facility] NT PRO BNP 2021-11-17 [facility] xas 19:37:00 [facility] PROTHROMBIN TIME 2021-11-17 [facility] exas 19:37:00 [facility] APTT 2021-11-17 [facility] xas 19:37:00 [facility] Results CBC 2021-11-17 [facility] xas 19:37:00 [facility] MANUAL DIFFERENTIAL 2021-11-17 [facility] 19:37:00 [facility] GLUCOSE LEVEL 2021-11-17 [facility] [place] 19:37:00 [facility] BLOOD UREA NITROGEN 2021-11-17 [facility] 19:37:00 [facility] ELECTROLYTE PANEL 2021-11-[address] [facility] 19:37:00 [facility] SERUM CREATININE 2021-11-17 [facility] [place] 19:37:00 [facility] .GLOMERULAR FILTRATION 2021-11-17 [facility] RATE 19:37:00 [facility] CALCIUM LEVEL TOTAL 2021-11-17 [facility] 19:37:00 [facility] ALBUMIN LEVEL 2021-11-17 [facility] [place] 19:37:00 [facility] ALKALINE PHOSPHATASE 2021-11-[address] [facility] 19:37:00 [facility] ALANINE AMINOTRANSFERASE 2021-11-17 [facility] 19:37:00 [facility] ASPARTATE AMINOTRANSFERASE 2021-11-17 [facility] 19:37:00 [facility] TOTAL PROTEIN 2021-11-17 [facility] [place] 19:37:00 [facility] FRACTIONATED BILIRUBIN 2021-11-17 [facility] 19:37:00 [facility] BLOODCULTURE 2021-11-17 [facility] [place] 19:37:00 [facility] COVID-19 (SARS-COV-2) 2021-11-[address] [facility] ASYMPTOMATIC-LT 19:37:00 [facility] POC GLUCOSE SCREEN 2021-11-12 Ene Polk [facility] 12:18:00 [facility] BASIC METABOLIC PANEL, 2021-11-12 Shailesh Guthrie [facility] CALCIUM TOTAL 09:24:00 [facility] MAGNESIUM LEVEL 2021-11-12 [facility] exas 09:24:00 [facility] PHOSPHORUS LEVEL 2021-11-12 Shailesh Guthrie [facility] 09:24:00 [facility] COMPLETE BLOOD COUNT W/ 2021-11-12 Shailesh Guthrie [facility] DIFFERENTIAL 09:24:00 [facility] Center GLUCOSE LEVEL 2021-11-12 Ene Polk [facility] 09:24:00 [facility] BLOOD UREA NITROGEN 2021-11-12 [facility] 09:24:00 [facility] ELECTROLYTE PANEL 2021-11-12 Jam [facility] 09:24:00 [facility] SERUM CREATININE 2021-11-12 Jam [facility] ex 09:24:00 [facility] .GLOMERULAR FILTRATION 2021-11-12 Ene Polk [facility] RATE 09:24:00 [facility] CALCIUM LEVEL TOTAL 2021-11-12 [facility] 09:24:00 [facility] Center Results CBC 2021-11-12 Ene Polk [facility] 09:24:00 [facility] Center MANUAL DIFFERENTIAL 2021-11-12 [facility] 09:24:00 [facility] Center POC GLUCOSE SCREEN 2021-11-12 Jam [facility] 04:06:00 [facility] POC GLUCOSE SCREEN 2021-11-12 [facility] 00:33:00 [facility] POC GLUCOSE SCREEN 2021-11-11 [facility] 20:31:00 [facility] POC GLUCOSE SCREEN 2021-11-11 [facility] 17:29:00 [facility] POC GLUCOSE SCREEN 2021-11-11 [facility] 12:57:00 [facility] BASIC METABOLIC PANEL, 2021-11-11 Shailesh Guthrie [facility] CALCIUM TOTAL 08:47:00 [facility] er Center MAGNESIUM LEVEL 2021-11-11 [place] [facility] exas 08:47:00 [facility] er Center PHOSPHORUS LEVEL 2021-11-11 [place] Count includes the [facility] 08:47:00 [facility] COMPLETE BLOOD COUNT W/ 2021-11-11 [place] Shailesh [facility] DIFFERENTIAL 08:47:00 [facility] GLUCOSE LEVEL 2021-11-11 Ene Polk [facility] xa 08:47:00 [facility] BLOOD UREA NITROGEN 2021-11-11 [facility] [place] 08:47:00 [facility] ELECTROLYTE PANEL 2021-11-11 Ene Polk [facility] 08:47:00 [facility] SERUM CREATININE 2021-11-11 Jam [facility] exas 08:47:00 [facility] .GLOMERULAR FILTRATION 2021-11-11 Ene Polk [facility] RATE 08:47:00 [facility] CALCIUM LEVEL TOTAL 2021-11-11 Ene Polk [facility] 08:47:00 [facility] Results CBC 2021-11-11 Ene Polk [facility] 08:47:00 [facility] MANUAL DIFFERENTIAL 2021-11-11 [facility] [place] 08:47:00 [facility] POC GLUCOSE SCREEN 2021-11-10 Ene Polk [facility] 22:31:00 [facility] SODIUM LEVEL 2021-11-10 Aaron Nolasco [facility] 19:27:00 [facility] POC GLUCOSE SCREEN 2021-11-10 Ene Polk [facility] 17:38:00 [facility] GENERAL LABORATORY ADD ON 2021-11-10 Shirley Mcghee [facility] TEST 14:06:00 [facility] POC GLUCOSE SCREEN 2021-11-10 Ene Polk [facility] 14:05:00 [facility] NT PRO BNP 2021-11-10 Tamiko Stewart [facility] xa 14:03:00 [facility] BASIC METABOLIC PANEL, 2021-11-10 Shailesh Guthrie [facility] CALCIUM TOTAL 08:47:00 [facility] MAGNESIUM LEVEL 2021-11-10 [place] [facility] exas 08:47:00 [facility] PHOSPHORUS LEVEL 2021-11-10 [facility] 08:47:00 [facility] COMPLETE BLOOD COUNT W/ 2021-11-10 [place] [facility] DIFFERENTIAL 08:47:00 [facility] GLUCOSE LEVEL 2021-11-10 [facility] xa 08:47:00 [facility] BLOOD UREA NITROGEN 2021-11-10 [facility] 08:47:00 [facility] ELECTROLYTE PANEL 2021-11-10 [facility] 08:47:00 [facility] SERUM CREATININE 2021-11-[address] [facility] 08:47:00 [facility] .GLOMERULAR FILTRATION 2021-11-10 Ene Polk [facility] RATE 08:47:00 [facility] CALCIUM LEVEL TOTAL 2021-11-10 [facility] 08:47:00 [facility] Results CBC 2021-11-10 Jam [facility] 08:47:00 [facility] MANUAL DIFFERENTIAL 2021-11-10 [facility] 08:47:00 [facility] POC GLUCOSE SCREEN 2021-11-09 [facility] 22:24:00 [facility] POC GLUCOSE SCREEN 2021-11-09 [facility] 13:07:00 [facility] BASIC METABOLIC PANEL, 2021-11-09 [place] Shailesh [facility] CALCIUM TOTAL 09:01:00 [facility] MAGNESIUM LEVEL 2021-11-09 [facility] ex 09:01:00 [facility] PHOSPHORUS LEVEL 2021-11-09 [facility] 09:01:00 [facility] COMPLETE BLOOD COUNT W/ 2021-11-09 [place] [facility] DIFFERENTIAL 09:01:00 [facility] GLUCOSE LEVEL 2021-11-09 [facility] xas 09:01:00 [facility] BLOOD UREA NITROGEN 2021-11-09 [facility] [place] 09:01:00 [facility] ELECTROLYTE PANEL 2021-11-09 Ene Polk [facility] 09:01:00 [facility] SERUM CREATININE 2021-11-09 Ene Polk [facility] 09:01:00 [facility] .GLOMERULAR FILTRATION 2021-11-09 Ene Polk [facility] RATE 09:01:00 [facility] CALCIUM LEVEL TOTAL 2021-11-09 Ene Polk [place] [facility] [place] 09:01:00 [facility] Results CBC 2021-11-09 Ene Polk [facility] xa 09:01:00 [facility] MANUAL DIFFERENTIAL 2021-11-09 Ene Polk [place] [facility] [place] 09:01:00 [facility] XR CHEST 1 VW 2021-11-08 Shailesh Guthrie [facility] 22:54:06 [facility] POC GLUCOSE SCREEN 2021-11-08 Ene Polk [facility] 22:53:00 [facility] PATHOLOGY SURGICAL 2021-11-08 Ene Polk [facility] INTERPRETATION 21:12:00 [facility] TRACHEOSTOMY - PLANNED 2021-11-08 Ene Polk [facility] 19:47:00 [facility] DIAGNOSTIC FLEXIBLE OR 2021-11-08 Ene Polk [facility] RIGID ESOPHAGOSCOPY 19:47:00 [facility] DIRECT OPERATIVE 2021-11-08 Ene Polk [facility] LARYNGOSCOPY WITH BIOPSY 19:47:00 MD Gibson deya [facility] POC GLUCOSE SCREEN 2021-11-08 Ene Polk [facility] 19:34:00 [facility] COVID-19 (SARS-COV-2) 2021-11-08 Ene Polk [facility] ASYMPTOMATIC-LT 18:47:00 [facility] FLEXIBLE NASOPHARYNGEAL 2021-11-07 StephanieRebecca sky [facility] LARYNGOSCOPY 23:14:25 [facility] SPIROMETRY W/O DILATORS, 2021-11-07 [facility] DLCO AND BODY 20:14:27 [facility] PLETHSMOGRAPHIC LUNG Center VOLUMES 6 MINUTE WALK TEST 2021-11-07 CalzadajonoShirley [facility] 20:14:12 [facility] POC GLUCOSE SCREEN 2021-10-27 [place] Park [facility] 17:39:00 [facility] BASIC METABOLIC PANEL, 2021-10-27 [facility] CALCIUM IONIZED 10:10:00 [facility] MAGNESIUM LEVEL 2021-10-27 [facility] xas 10:10:00 [facility] PHOSPHORUS LEVEL 2021-10-27 [facility] exas 10:10:00 [facility] COMPLETE BLOOD COUNT W/ 2021-10-27 [facility] DIFFERENTIAL 10:10:00 [facility] GLUCOSE LEVEL 2021-10-27 [facility] [place] [facility] xas 10:10:00 [facility] BLOOD UREA NITROGEN 2021-10-27 [facility] [place] 10:10:00 [facility] ELECTROLYTE PANEL 2021-10-27 [facility] 10:10:00 [facility] SERUM CREATININE 2021-10-27 [facility] exas 10:10:00 [facility] .GLOMERULAR FILTRATION 2021-10-27 [facility] RATE 10:10:00 [facility] CALCIUM IONIZED, VENOUS 2021-10-27 [facility] 10:10:00 [facility] Results CBC 2021-10-27 [facility] xas 10:10:00 [facility] MANUAL DIFFERENTIAL 2021-10-27 [facility] [place] 10:10:00 [facility] ABORH MANUAL 2021-10-27 [facility] [place] [facility] xas 10:10:00 [facility] CLOT EXPIRATION DATE 2021-10-27 [facility] 10:10:00 [facility] POC GLUCOSE SCREEN 2021-10-27 [facility] 05:04:00 [facility] POC GLUCOSE SCREEN 2021-10-26 [facility] 22:36:00 [facility] ARTERIAL BLOOD GAS 2021-10-26 [facility] 22:19:00 [facility] OSCILLATORY PEP 2021-10-26 [facility] 19:[facility]53 [facility] POC GLUCOSE SCREEN 2021-10-26 [facility] 16:42:00 [facility] OSCILLATORY PEP 2021-10-26 [facility] 13:00:10 [facility] BASIC METABOLIC PANEL, 2021-10-26 [facility] CALCIUM IONIZED 10:20:00 [facility] MAGNESIUM LEVEL 2021-10-26 [facility] 10:20:00 [facility] PHOSPHORUS LEVEL 2021-10-26 [facility] 10:20:00 [facility] COMPLETE BLOOD COUNT W/ 2021-10-26 [facility] DIFFERENTIAL 10:20:00 [facility] GLUCOSE LEVEL 2021-10-26 [facility] 10:20:00 [facility] BLOOD UREA NITROGEN 2021-10-26 [facility] [place] 10:20:00 [facility] ELECTROLYTE PANEL 2021-10-26 [facility] 10:20:00 [facility] SERUM CREATININE 2021-10-26 [facility] exas 10:20:00 [facility] .GLOMERULAR FILTRATION 2021-10-26 [facility] RATE 10:20:00 [facility] CALCIUM IONIZED, VENOUS 2021-10-26 [facility] 10:20[facility]00 [facility] Results CBC 2021-10-26 [facility] 10:20:00 [facility] MANUAL DIFFERENTIAL 2021-10-26 [facility] [place] 10:20:00 [facility] POC GLUCOSE SCREEN 2021-10-26 [facility] 05:14:00 [facility] OSCILLATORY PEP 2021-10-26 [facility] [place] 01:00:07 [facility] POC GLUCOSE SCREEN 2021-10-25 [facility] 22:58:00 [facility] OSCILLATORY PEP 2021-10-25 [facility] xas 19:00:56 [facility] POC GLUCOSE SCREEN 2021-10-25 [facility] 16:44:00 [facility] OSCILLATORY PEP 2021-10-25 [facility] xas 13:00:13 [facility] POC GLUCOSE SCREEN 2021-10-25 [facility] 11:48:00 [facility] TYPE AND SCREEN 2021-10-25 [facility] xas 10:02:00 [facility] ANTIBODY SCREEN 2021-10-25 [facility] xas 10:02:00 [facility] BASIC METABOLIC PANEL, 2021-10-25 [facility] CALCIUM IONIZED 10:02:00 [facility] MAGNESIUM LEVEL 2021-10-25 [facility] xas 10:02:00 [facility] PHOSPHORUS LEVEL 2021-10-25 [facility] exas 10:02:00 [facility] COMPLETE BLOOD COUNT W/ 2021-10-25 [facility] DIFFERENTIAL 10:02:00 [facility] GLUCOSE LEVEL 2021-10-25 [facility] xas 10:02:00 [facility] BLOOD UREA NITROGEN 2021-10-25 [facility] [place] 10:02:00 [facility] ELECTROLYTE PANEL 2021-10-25 [facility] 10:02:00 [facility] SERUM CREATININE 2021-10-25 [facility] [place] 10:02:00 [facility] .GLOMERULAR FILTRATION 2021-10-25 [facility] RATE 10:02:00 [facility] Center CALCIUM IONIZED, VENOUS 2021-10-25 [facility] 10:02:00 [facility] Center Results CBC 2021-10-25 [facility] xas 10:02:00 [facility] Center MANUAL DIFFERENTIAL 2021-10-25 [facility] [place] 10:02:00 [facility] TMP INTERPRETATION 2021-10-25 [facility] ANTIBODY SCREEN NEGATIVE 10:02:00 [facility] ABORH MANUAL 2021-10-25 [facility] xas 10:02:00 [facility] Center CLOT EXPIRATION DATE 2021-10-25 [facility] 10:02:00 [facility] Center OSCILLATORY PEP 2021-10-25 [facility] xas 07:00:11 [facility] Center POC GLUCOSE SCREEN 2021-10-25 [facility] 04:59:00 [facility] Center OSCILLATORY PEP 2021-10-25 [facility] xas 01:00:14 [facility] Center POC GLUCOSE SCREEN 2021-10-24 [facility] 23:01:00 [facility] Center OSCILLATORY PEP 2021-10-24 [facility] xas 19:00:54 [facility] Center POC GLUCOSE SCREEN 2021-10-24 [facility] 16:48:00 [facility] Center OSCILLATORY PEP 2021-10-24 [facility] xas 13:00:09 [facility] Center OSCILLATORY PEP 2021-10-24 [facility] xas 07:00:12 [facility] Center POC GLUCOSE SCREEN 2021-10-24 [facility] 04:31:00 [facility] Center OSCILLATORY PEP 2021-10-24 [facility] xas 01:00:13 [facility] POC GLUCOSE SCREEN 2021-10-23 [facility] 23:09:00 [facility] OSCILLATORY PEP 2021-10-23 [facility] xas 19:00:57 [facility] POC GLUCOSE SCREEN 2021-10-23 [facility] 16:58:00 [facility] OSCILLATORY PEP 2021-10-23 [facility] xas 13:00:08 [facility] HEMOGLOBIN A1C 2021-10-23 [facility] xas 10:13:00 [facility] BASIC METABOLIC PANEL, 2021-10-23 [facility] CALCIUM IONIZED 10:13:00 [facility] MAGNESIUM LEVEL 2021-10-23 [facility] xas 10:13:00 [facility] PHOSPHORUS LEVEL 2021-10-23 [facility] exas 10:13:00 [facility] COMPLETE BLOOD COUNT W/ 2021-10-23 [facility] DIFFERENTIAL 10:13:00 [facility] GLUCOSE LEVEL 2021-10-23 [facility] xas 10:13:00 [facility] BLOOD UREA NITROGEN 2021-10-23 [facility] [place] 10:13:00 [facility] ELECTROLYTE PANEL 2021-10-23 [facility] 10:13:00 [facility] SERUM CREATININE 2021-10-23 [facility] exas 10:13:00 [facility] .GLOMERULAR FILTRATION 2021-10-23 [facility] RATE 10:13:00 [facility] CALCIUM IONIZED, VENOUS 2021-10-23 [facility] 10:13:00 [facility] Results CBC 2021-10-23 [facility] xas 10:13:00 [facility] MANUAL DIFFERENTIAL 2021-10-23 [facility] [place] 10:13:00 [facility] Center POC GLUCOSE SCREEN 2021-10-23 [facility] 10:07:00 [facility] OSCILLATORY PEP 2021-10-23 [facility] xas 07:00:08 [facility] POC GLUCOSE SCREEN 2021-10-23 [facility] 04:49:00 [facility] OSCILLATORY PEP 2021-10-23 [facility] xas 01:00:08 [facility] MRSA SCREENING CULTURE 2021-10-22 [facility] 22:27:00 [facility] LOWER RESPIRATORY CULTURE 2021-10-22 [facility] W/ GRAM STAIN 22:27:00 [facility] POC GLUCOSE SCREEN 2021-10-22 [facility] 22:19:00 [facility] COMPLETE BLOOD COUNT W/ 2021-10-22 [facility] DIFFERENTIAL 19:38:00 [facility] Results CBC 2021-10-22 [facility] [place] [facility] xa 19:38:00 [facility] Center MANUAL DIFFERENTIAL 2021-10-22 [facility] [place] 19:38:00 [facility] OSCILLATORY PEP 2021-10-22 [facility] [place] [facility] xas 19:00:54 [facility] POC GLUCOSE SCREEN 2021-10-22 [facility] 18:11:00 [facility] XR CHEST 1 VW 2021-10-22 [facility] xas 15:05:41 [facility] OSCILLATORY PEP 2021-10-22 [facility] xas 13:00:07 [facility] POC GLUCOSE SCREEN 2021-10-22 [facility] 10:37:00 [facility] BASIC METABOLIC PANEL, 2021-10-22 [facility] CALCIUM IONIZED 08:56:00 [facility] Center MAGNESIUM LEVEL 2021-10-22 [facility] [place] [facility] xas 08:56:00 [facility] PHOSPHORUS LEVEL 2021-10-22 [facility] exas 08:56:00 [facility] COMPLETE BLOOD COUNT W/ 2021-10-22 [facility] DIFFERENTIAL 08:56:00 [facility] Results CBC 2021-10-22 [facility] [place] [facility] xas 08:56:00 [facility] MANUAL DIFFERENTIAL 2021-10-22 [facility] [place] 08:56:00 [facility] GLUCOSE LEVEL 2021-10-22 [facility] xas 08:56:00 [facility] BLOOD UREA NITROGEN 2021-10-22 [facility] [place] 08:56:00 [facility] ELECTROLYTE PANEL 2021-10-22 [facility] 08:56:00 [facility] SERUM CREATININE 2021-10-22 [facility] exas 08:56:00 [facility] .GLOMERULAR FILTRATION 2021-10-22 [facility] RATE 08:56:00 [facility] CALCIUM IONIZED, VENOUS 2021-10-22 [facility] 08:56:00 [facility] OSCILLATORY PEP 2021-10-22 [facility] [place] [facility] xas 07:00:05 [facility] POC GLUCOSE SCREEN 2021-10-22 [facility] 04:54:00 [facility] POC GLUCOSE SCREEN 2021-10-22 [facility] 04:41:00 [facility] OSCILLATORY PEP 2021-10-22 [facility] xas 01:00:10 [facility] POC GLUCOSE SCREEN 2021-10-21 [facility] 22:54:00 [facility] COMPLETE BLOOD COUNT W/ 2021-10-21 [facility] DIFFERENTIAL 21:31:00 MD Jose E Canc er Center Results CBC 2021-10-21 [facility] xas 21:31:00 [facility] Center MANUAL DIFFERENTIAL 2021-10-21 [facility] [place] 21:31:00 [facility] Center OSCILLATORY PEP 2021-10-21 [facility] xas 19:00:59 [facility] POC GLUCOSE SCREEN 2021-10-21 [facility] 16:55:00 [facility] ARTERIAL BLOOD GAS 2021-10-21 [facility] 16:54:00 [facility] PETCT SUBSEQUENT TREATMENT 2021-10-21 [facility] Cintia [facility] STRATEGY 13:59:05 [facility] er Center OSCILLATORY PEP 2021-10-21 [facility] xas 13:00:06 [facility] POC GLUCOSE SCREEN 2021-10-21 [facility] 11:09:00 [facility] Center OSCILLATORY PEP 2021-10-21 [facility] xas 10:25:25 [facility] Center TYPE AND SCREEN 2021-10-21 [facility] xas 09:04:00 [facility] Center BASIC METABOLIC PANEL, 2021-10-21 [facility] CALCIUM IONIZED 09:04:00 [facility] Center MAGNESIUM LEVEL 2021-10-21 [facility] xas 09:04:00 [facility] Center PHOSPHORUS LEVEL 2021-10-21 [facility] 09:04:00 [facility] COMPLETE BLOOD COUNT W/ 2021-10-21 [facility] DIFFERENTIAL 09:04:00 [facility] Center ANTIBODY SCREEN 2021-10-21 [facility] xas 09:04:00 [facility] Center Results CBC 2021-10-21 [facility] xas 09:04:00 [facility] Center MANUAL DIFFERENTIAL 2021-10-21 [facility] [place] 09:04:00 [facility] Center GLUCOSE LEVEL 2021-10-21 [facility] xas 09:04:00 [facility] BLOOD UREA NITROGEN 2021-10-21 [facility] [place] 09:04:00 [facility] ELECTROLYTE PANEL 2021-10-21 [facility] 09:04:00 [facility] SERUM CREATININE 2021-10-21 [facility] exas 09:04:00 [facility] .GLOMERULAR FILTRATION 2021-10-21 [facility] RATE 09:04:00 [facility] CALCIUM IONIZED, VENOUS 2021-10-21 [facility] 09:04:00 [facility] ABORH MANUAL 2021-10-21 [facility] xas 09:04:00 [facility] TMP INTERPRETATION 2021-10-21 [facility] ANTIBODY SCREEN NEGATIVE 09:04:00 [facility] CLOT EXPIRATION DATE 2021-10-21 [facility] 09:04:[address] [facility] [address] SOFT TISSUE NECK W 2021-10-21 [facility] CONTRAST 07:22:00 [facility] POC GLUCOSE SCREEN 2021-10-21 [facility] 05:36:00 [facility] TRANSFUSE RED BLOOD CELLS 2021-10-21 Adame, Cintia [facility] 03:53:00 [facility] VERIFY CATHETER TIP 2021-10-21 Osman Villalobos [facility] PLACEMENT 02:42:47 [facility] XR CHEST 2 VW POST IMPLANT 2021-10-21 [facility] 01:56:00 [facility] INSERT VASCULAR ACCESS 2021-10-21 [facility] DEVICE 00:45:00 [facility] POC GLUCOSE SCREEN 2021-10-20 [facility] 23:19:00 [facility] VASCULAR ACCESS ULTRASOUND 2021-10-20 [place] [facility] 21:26:50 [facility] COMPLETE BLOOD COUNT W/ 2021-10-20 G[facility] DIFFERENTIAL 20:04:00 [facility] Results CBC 2021-10-20 [facility] xa 20:04:00 [facility] MANUAL DIFFERENTIAL 2021-10-20 [facility] [place] 20:04:00 [facility] TMP EXCEPTION 2021-10-20 [facility] xa 19:36:00 Bela Murphy MD [place] Jul[place] XR CHEST 1 VW 2021-10-20 [facility] xa 19:32:08 [facility] PREPARE RBC 2021-10-20 [facility] xa 18:00:00 [facility] PRBC PRODUCT READY FOR 2021-10-20 [facility] 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 18:00:00 [facility] POC GLUCOSE SCREEN 2021-10-20 [facility] 17:04:00 [facility] POC GLUCOSE SCREEN 2021-10-20 [facility] 10:27:00 [facility] BASIC METABOLIC PANEL, 2021-10-20 [facility] CALCIUM IONIZED 06:06:00 [facility] MAGNESIUM LEVEL 2021-10-20 [facility] xa 06:06:00 [facility] Center PHOSPHORUS LEVEL 2021-10-20 [facility] 06:06[facility]00 [facility] HEPATIC FUNCTION PANEL 2021-10-20 [facility] 06:06:00 [facility] COMPLETE BLOOD COUNT W/ 2021-10-20 Gavino [facility] DIFFERENTIAL 06:06:00 [facility] Center Results CBC 2021-10-20 [facility] 06:06:00 [facility] MANUAL DIFFERENTIAL 2021-10-20 [facility] [place] 06:06:00 MD [facility] GLUCOSE LEVEL 2021-10-20 [facility] xas 06:06:00 [facility] BLOOD UREA NITROGEN 2021-10-20 [facility] [place] 06:06:00 [facility] ELECTROLYTE PANEL 2021-10-20 [facility] 06:06[facility]00 [facility] SERUM CREATININE 2021-10-20 [facility] 06:06:00 [facility] .GLOMERULAR FILTRATION 2021-10-20 [facility] RATE 06:06:00 [facility] ALBUMIN LEVEL 2021-10-20 [facility] xas 06:06:00 [facility] ALKALINE PHOSPHATASE 2021-10-20 [facility] 06:06:00 [facility] ALANINE AMINOTRANSFERASE 2021-10-20 [facility] 06:06:00 [facility] ASPARTATE AMINOTRANSFERASE 2021-10-20 [facility] 06:06:00 [facility] TOTAL PROTEIN 2021-10-20 [facility] xa 06:06:00 [facility] FRACTIONATED BILIRUBIN 2021-10-20 [facility] 06:06:00 [facility] CALCIUM IONIZED, VENOUS 2021-10-20 [facility] 06:06:00 [facility] POC GLUCOSE SCREEN 2021-10-20 [facility] 04:51:00 [facility] OSCILLATORY PEP 2021-10-20 [facility] xas 01:00:08 [facility] POC GLUCOSE SCREEN 2021-10-19 [facility] 22:35:00 [facility] COMPLETE BLOOD COUNT W/ 2021-10-19 [facility] DIFFERENTIAL 19:53:00 [facility] Results CBC 2021-10-19 Monika Mandujano [facility] exas 19:53:00 MD [facility] MANUAL DIFFERENTIAL 2021-10-19 Monika Mandujano [facility] 19:53:00 [facility] OSCILLATORY PEP 2021-10-19 [facility] xas 17:00:11 [facility] POC GLUCOSE SCREEN 2021-10-19 [facility] 16:36:00 [facility] OSCILLATORY PEP 2021-10-19 [facility] xas 13:00:06 [facility] POC GLUCOSE SCREEN 2021-10-19 [facility] 10:32:00 [facility] XR CHEST 1 VW PORTABLE 2021-10-19 [facility] 10:15:58 [facility] BASIC METABOLIC PANEL, 2021-10-19 [facility] CALCIUM IONIZED 06:04:00 [facility] MAGNESIUM LEVEL 2021-10-19 [facility] xa 06:04:00 [facility] PHOSPHORUS LEVEL 2021-10-19 [facility] exas 06:04:00 [facility] HEPATIC FUNCTION PANEL 2021-10-19 [facility] 06:04:00 [facility] COMPLETE BLOOD COUNT W/ 2021-10-19 [facility] 06:04:00 [facility] Results CBC 2021-10-19 Monika Mandujano [facility] ex 06:04:00 [facility] MANUAL DIFFERENTIAL 2021-10-19 Monika Mandujano [facility] 06:04:00 [facility] GLUCOSE LEVEL 2021-10-19 [facility] xa 06:04:00 [facility] BLOOD UREA NITROGEN 2021-10-19 [facility] 06:04:00 [facility] ELECTROLYTE PANEL 2021-10-19 [facility] 06:04:00 [facility] SERUM CREATININE 2021-10-19 [facility] exas 06:04:00 MD [facility] .GLOMERULAR FILTRATION 2021-10-19 [facility] RATE 06:04:00 [facility] ALBUMIN LEVEL 2021-10-19 [facility] xa 06:04:00 [facility] ALKALINE PHOSPHATASE 2021-10-19 [facility] 06:04:00 [facility] ALANINE AMINOTRANSFERASE 2021-10-19 [facility] 06:04:00 [facility] ASPARTATE AMINOTRANSFERASE 2021-10-19 [facility] 06:04:00 [facility] TOTAL PROTEIN 2021-10-19 [facility] xa 06:04:00 [facility] FRACTIONATED BILIRUBIN 2021-10-19 [facility] 06:04:00 [facility] CALCIUM IONIZED, VENOUS 2021-10-19 [facility] 06:04:00 [facility] POC GLUCOSE SCREEN 2021-10-19 [facility] 05:02:[address] [facility] [address] ABDOMEN PELVIS WO 2021-10-19 Tori Velez [facility] CONTRAST 02:20:24 [facility] OSCILLATORY PEP 2021-10-19 [facility] xa 01:00:08 [facility] POC GLUCOSE SCREEN 2021-10-18 [facility] 23:48:00 [facility] OSCILLATORY PEP 2021-10-18 [facility] xa 21:02:10 [facility] BASIC METABOLIC PANEL, 2021-10-18 Devendra Pak [facility] CALCIUM IONIZED 20:57:00 [facility] LACTIC ACID, VENOUS 2021-10-18 Monika Mandujano [facility] 20:57:00 [facility] CALCIUM IONIZED, VENOUS 2021-10-18 [facility] 20:57:00 [facility] ABORH MANUAL 2021-10-18 Mellisa [facility] 20:57:00 [facility] CLOT EXPIRATION DATE 2021-10-18 [facility] 20:57:00 [facility] VRE CULTURE 2021-10-18 [facility] 20:57:00 [facility] ECHOCARDIOGRAM 2D COMPLETE 2021-10-18 Cintia Adame [facility] 20:16:32 [facility] POC GLUCOSE SCREEN 2021-10-18 [facility] 18:44:00 [facility] ARTERIAL BLOOD GAS 2021-10-18 [facility] 18:26:00 [facility] APTT 2021-10-18 [facility] 18:26:00 [facility] COMPLETE BLOOD COUNT W/ 2021-10-18 [facility] INDICES 18:26:00 [facility] MAGNESIUM LEVEL 2021-10-18 [facility] 18:26:00 [facility] PHOSPHORUS LEVEL 2021-10-18 [facility] 18:26:00 [facility] PROTHROMBIN TIME 2021-10-18 [facility] [place] 18:26:00 [facility] GLUCOSE LEVEL 2021-10-18 [facility] 18:26:00 [facility] ELECTROLYTE PANEL 2021-10-18 [facility] 18:26:00 [facility] SERUM CREATININE 2021-10-18 [facility] 18:26:00 [facility] .GLOMERULAR FILTRATION 2021-10-18 [facility] RATE 18:26:00 [facility] BLOOD UREA NITROGEN 2021-10-18 [facility] 18:26:00 [facility] XR CHEST 1 VW PORTABLE 2021-10-18 [facility] 18:21:00 [facility] POC ARTERIAL BLOOD GAS 2021-10-18 Gavino [facility] 18:19:00 [facility] POC CRITICAL 2021-10-18 [facility] xas 16:55:00 [facility] POC ARTERIAL BLOOD GAS 2021-10-18 [facility] 16:55:00 [facility] DIAGNOSTIC UPPER 2021-10-18 Louie [facility] exas GASTROINTESTINAL ENDOSCOPY 15:42:00 MD [facility] INTRALUMINAL 2021-10-18 Louie [facility] xas GASTROINTESTINAL TRACT 15:42:00 MD [facility] THROUGH ILEUM OSCILLATORY PEP 2021-10-18 [facility] xas 12:42:15 [facility] TYPE AND SCREEN 2021-10-18 [facility] x[facility] 12:05:00 [facility] BASIC METABOLIC PANEL, 2021-10-18 [facility] CALCIUM IONIZED 12:05:00 [facility] MAGNESIUM LEVEL 2021-10-18 [facility] xas 12:05:00 [facility] PHOSPHORUS LEVEL 2021-10-18 [facility] exas 12:05:00 [facility] HEPATIC FUNCTION PANEL 2021-10-18 [facility] 12:05:00 [facility] COMPLETE BLOOD COUNT W/ 2021-10-18 [facility] DIFFERENTIAL 12:05:00 [facility] ANTIBODY SCREEN 2021-10-[address] [facility] ex 12:05:00 Maryse [facility] GLUCOSE LEVEL 2021-10-[address] [facility] ex 12:05:00 Maryse [facility] BLOOD UREA NITROGEN 2021-10-18 [facility] 12:05:00 Maryse [facility] ELECTROLYTE PANEL 2021-10-18 [facility] 12:05:00 Maryse [facility] SERUM CREATININE 2021-10-18 [facility] 12:05:00 Maryse [facility] .GLOMERULAR FILTRATION 2021-10-18 [facility] 12:05:00 Maryse CRAWLEY [facility] ALBUMIN LEVEL 2021-10-18 [facility] exas 12:05:00 Maryse CRAWLEY [facility] ALKALINE PHOSPHATASE 2021-10-18 [facility] 12:05:00 Maryse CRAWLEY [facility] ALANINE AMINOTRANSFERASE 2021-10-18 [facility] 12:05:00 Maryse CRAWLEY [facility] ASPARTATE AMINOTRANSFERASE 2021-10-18 [facility] 12:05:00 Maryse CRAWLEY [facility] TOTAL PROTEIN 2021-10-[address] [facility] exas 12:05:00 Maryse CRAWLEY [facility] FRACTIONATED BILIRUBIN 2021-10-18 [facility] 12:05:00 Maryse CRAWLEY [facility] CALCIUM IONIZED, VENOUS 2021-10-18 [facility] 12:05:00 Maryse CRAWLEY [facility] Results CBC 2021-10-[address] [facility] exas 12:05:00 Maryse Dorantes [facility] MANUAL DIFFERENTIAL 2021-10-18 [facility] 12:05:00 Maryse CRAWLEY [facility] ABORH MANUAL 2021-10-[address] [facility] exas 12:05:00 Maryse Dorantes [facility] TMP INTERPRETATION 2021-10-18 [facility] [place] ANTIBODY SCREEN NEGATIVE 12:05:00 Maryse [facility] CLOT EXPIRATION DATE 2021-10-18 [facility] 12:05:00 Maryse CRAWLEY [facility] TMP CROSSMATCH 2021-10-18 [facility] ex[place] INTERPRETATION 12:05:00 Maryse CRAWLEY [facility] POC GLUCOSE SCREEN 2021-10-18 Gavino [facility] 10:37:00 MD Dorantes [facility] POC GLUCOSE SCREEN 2021-10-18 Gavino [facility] 04:24:00 [facility] POC GLUCOSE SCREEN 2021-10-17 [facility] 23:32:00 [facility] BLOODCULTURE 2021-10-17 [facility] 17:56:00 [facility] POC GLUCOSE SCREEN 2021-10-17 [facility] 16:14:00 [facility] BASIC METABOLIC PANEL, 2021-10-17 [facility] CALCIUM IONIZED 11:29:00 [facility] MAGNESIUM LEVEL 2021-10-17 [facility] xas 11:29:00 [facility] PHOSPHORUS LEVEL 2021-10-17 [facility] exas 11:29:00 [facility] PROTHROMBIN TIME 2021-10-17 [facility] 11:29:00 Maryse [facility] APTT 2021-10-[address] [facility] exas 11:29:00 Maryse [facility] HEPATIC FUNCTION PANEL 2021-10-17 [facility] 11:29:00 [facility] COMPLETE BLOOD COUNT W/ 2021-10-17 [facility] DIFFERENTIAL 11:29:00 [facility] GLUCOSE LEVEL 2021-10-[address] [facility] exas 11:29:00 Maryse [facility] BLOOD UREA NITROGEN 2021-10-[address] 11:29:00 Maryse [facility] ELECTROLYTE PANEL 2021-10-[address] 11:29:00 Maryse [facility] SERUM CREATININE 2021-10-17 [facility] 11:29:00 Maryse [facility] .GLOMERULAR FILTRATION 2021-10-17 [facility] RATE 11:29:00 Maryse [facility] ALBUMIN LEVEL 2021-10-[address] [facility] exas 11:29:00 Maryse [facility] ALKALINE PHOSPHATASE 2021-10-[address] 11:29:00 Maryse [facility] ALANINE AMINOTRANSFERASE 2021-10-17 [facility] 11:29:00 Maryse [facility] [place] ASPARTATE AMINOTRANSFERASE 2021-10-17 [facility] 11:29:00 Maryse [facility] TOTAL PROTEIN 2021-10-17 [facility] 11:29:00 [facility] FRACTIONATED BILIRUBIN 2021-10-17 [facility] 11:29:00 Maryse [facility] [place] CALCIUM IONIZED, VENOUS 2021-10-17 [facility] 11:29:00 Maryse [facility] Results CBC 2021-10-17 [facility] 11:29:00 Maryse [facility] Center MANUAL DIFFERENTIAL 2021-10-17 [facility] 11:29:00 Maryse [facility] Center POC GLUCOSE SCREEN 2021-10-17 [facility] [place] 09:56:00 Maryse [facility] POC GLUCOSE SCREEN 2021-10-17 [facility] [place] 05:05:00 [facility] OSCILLATORY PEP 2021-10-[address] [facility] exas 01:00:13 Maryse [facility] Center POC GLUCOSE SCREEN 2021-10-16 [facility] [place] 22:07:00 [facility] OSCILLATORY PEP 2021-10-[address] [facility] exas 21:00:05 [facility] OSCILLATORY PEP 2021-10-[address] [facility] exas 17:00:13 [facility] [place] XR CHEST 1 VW PORTABLE 2021-10-16 [facility] 16:49:33 Maryse [facility] POC GLUCOSE SCREEN 2021-10-16 [facility] [place] 16:31:00 Maryse [facility] OSCILLATORY PEP 2021-10-[address] [facility] exas 13:00:04 Maryse CRAWLEY [facility] POC GLUCOSE SCREEN 2021-10-16 [facility] [place] 10:40:00 Maryse [facility] BASIC METABOLIC PANEL, 2021-10-16 [facility] CALCIUM IONIZED 06:29:00 [facility] MAGNESIUM LEVEL 2021-10-16 [facility] xas 06:29:00 [facility] PHOSPHORUS LEVEL 2021-10-16 [facility] exas 06:29:00 [facility] PROTHROMBIN TIME 2021-10-[address] 06:29:00 Maryse [facility] APTT 2021-10-[address] [facility] exas 06:29:00 Maryse [facility] HEPATIC FUNCTION PANEL 2021-10-16 [facility] 06:29:00 [facility] COMPLETE BLOOD COUNT W/ 2021-10-16 [facility] 06:29:00 [facility] Results CBC 2021[facility]10-16 [facility] 06[facility]29:00 [facility] MANUAL DIFFERENTIAL 2021-10-16 [facility] 06:29:00 [facility] GLUCOSE LEVEL 2021-10-16 Griselda [facility] 06:29:00 [facility] BLOOD UREA NITROGEN 2021-10-16 Osman Villalobos [facility] 06:29:00 [facility] ELECTROLYTE PANEL 2021-10-16 Griselda [facility] 06:29:00 [facility] SERUM CREATININE 2021-10-16 Osman Villalobos [facility] [place] 06:29:00 [facility] .GLOMERULAR FILTRATION 2021-10-16 Osman Villalobos [facility] RATE 06:29:00 [facility] Center ALBUMIN LEVEL 2021-10-16 [facility] 06:29:00 [facility] ALKALINE PHOSPHATASE 2021-10-16 [facility] 06:29:00 [facility] ALANINE AMINOTRANSFERASE 2021-10-16 [facility] 06:29:00 [facility] ASPARTATE AMINOTRANSFERASE 2021-10-16 [facility] 06:29:00 [facility] TOTAL PROTEIN 2021-10-16 [facility] 06:29:00 [facility] FRACTIONATED BILIRUBIN 2021-10-16 [facility] 06:29:00 [facility] CALCIUM IONIZED, VENOUS 2021-10-16 [facility] 06:29:00 [facility] POC GLUCOSE SCREEN 2021-10-16 [facility] 04:18:00 Maryse [facility] URINE CULTURE 2021-10-16 Griselda [facility] 01:24:00 [facility] URINALYSIS WITH 2021-10-16 Griselda [facility] MICROSCOPIC IF INDICATED 01:23:00 MD [facility] URINALYSIS MICROSCOPIC 2021-10-16 Osman Villalobos [facility] 01:23:00 [facility] POC GLUCOSE SCREEN 2021-10-15 Eugene, [facility] 22:34:00 Maryse [facility] OSCILLATORY PEP 2021-10-15 [facility] 21:00:07 Maryse [facility] BASIC METABOLIC PANEL, 2021-10-15 Cintia Adame [facility] CALCIUM IONIZED 19:55:00 [facility] MAGNESIUM LEVEL 2021-10-15 Cintia Adame [facility] xas 19:55:00 [facility] PHOSPHORUS LEVEL 2021-10-15 Gavino [facility] exas 19:55:00 [facility] GLUCOSE LEVEL 2021-10-15 Osman Villalobos [facility] 19:55:00 [facility] BLOOD UREA NITROGEN 2021-10-15 Osman Villalobos [facility] 19:55:00 [facility] ELECTROLYTE PANEL 2021-10-15 Osman Villalobos [facility] 19:55:00 [facility] SERUM CREATININE 2021-10-15 Osman Villalobos [facility] [place] 19:55:00 [facility] .GLOMERULAR FILTRATION 2021-10-15 Osman Villalobos [facility] RATE 19:55:00 [facility] CALCIUM IONIZED, VENOUS 2021-10-15 Osman Villalobos [facility] 19:55:00 [facility] COMPLETE BLOOD COUNT W/ 2021-10-15 [facility] DIFFERENTIAL 19:55:00 [facility] Results CBC 2021-10-15 [facility] 19:55:00 [facility] MANUAL DIFFERENTIAL 2021-10-15 [facility] 19:55:00 [facility] POC GLUCOSE SCREEN 2021-10-15 [facility] 17:00:00 Maryse [facility] COVID-19 (SARS-COV-2) 2021-10-15 [facility] 14:08:00 Maryse [facility] TRANSFUSE RED BLOOD CELLS 2021-10-[address] [facility] 14:02:00 [facility] OSCILLATORY PEP 2021-10-15 [facility] 13:00:11 Maryse [facility] VRE CULTURE 2021-10-15 Osman Villalobos [facility] 12:52:00 [facility] TMP EXCEPTION 2021-10-15 [facility] 12:44:00 Maryse [facility] POC GLUCOSE SCREEN 2021-10-15 [facility] [place] 11:07:00 Maryse [facility] PREPARE RBC 2021-10-15 Osman Villalobos [facility] 07:55:00 [facility] PRBC PRODUCT READY FOR 2021-10-15 Osman Villalobos [facility] 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 07:55:00 [facility] COMPLETE BLOOD COUNT W/ 2021-10-15 Osman Villalobos [facility] DIFFERENTIAL 07:21:00 [facility] Results CBC 2021-10-15 Osman Villalobos [facility] 07:21:00 [facility] MANUAL DIFFERENTIAL 2021-10-15 Osman Villalobos [facility] 07:21:00 [facility] TYPE AND SCREEN 2021-10-15 Osman Villalobos [facility] 07:07:00 [facility] BASIC METABOLIC PANEL, 2021-10-15 Osman Villalobos [facility] CALCIUM IONIZED 07:07:00 [facility] MAGNESIUM LEVEL 2021-10-15 Osman Villalobos [facility] 07:07:00 [facility] ASPARTATE AMINOTRANSFERASE 2021-10-15 [facility] 07:07[facility]00 [facility] ALANINE AMINOTRANSFERASE 2021-10-15 Osman Villalobos [facility] 07:07:00 [facility] FRACTIONATED BILIRUBIN 2021-10-15 Osman Villalobos [facility] 07:07:00 [facility] LACTATE DEHYDROGENASE 2021-10-15 Osman Villalobos [facility] 07:07:00 [facility] ALKALINE PHOSPHATASE 2021-10-15 Osman Villalobos [facility] 07:07:00 [facility] ALBUMIN LEVEL 2021-10-15 Osman Villalobos [facility] 07:07:00 [facility] PHOSPHORUS LEVEL 2021-10-15 Osman Villalobos [facility] 07:07:00 [facility] ARTERIAL BLOOD GAS 2021-10-15 Osman Villalobos [facility] 07:07:00 [facility] THYROID STIMULATING 2021-10-15 Griselda [facility] HORMONE 07:07:00 [facility] FREE THYROXINE 2021-10-15 Griselda [facility] 07:07:00 [facility] TOTAL T3 2021-10-15 Griselda [facility] 07:07:00 [facility] AMYLASE LEVEL 2021-10-15 Griselda [facility] 07:07:00 [facility] LIPASE LEVEL 2021-10-15 Griselda [facility] 07:07:00 [facility] CARDIAC PANEL 2021-10-15 Griselda [facility] 07:07:00 [facility] NT PRO BNP 2021-10-15 Griselda [facility] 07:07:00 [facility] LACTIC ACID, VENOUS 2021-10-15 Griselda [facility] 07:07:00 [facility] PROTHROMBIN TIME 2021-10-15 Griselda [facility] 07:07:00 [facility] APTT 2021-10-15 Griselda [facility] 07:07:00 [facility] FIBRINOGEN ACTIVITY 2021-10-15 Griselda [facility] 07:07:00 [facility] GLUCOSE LEVEL 2021-10-15 Griselda [facility] 07:07:00 [facility] BLOOD UREA NITROGEN 2021-10-15 Griselda [facility] 07:07:00 [facility] ELECTROLYTE PANEL 2021-10-15 Griselda [facility] 07:07:00 [facility] SERUM CREATININE 2021-10-15 [facility] 07:07[facility]00 [facility] .GLOMERULAR FILTRATION 2021-10-15 Griselda [facility] RATE 07:07:00 [facility] CALCIUM IONIZED, VENOUS 2021-10-15 [facility] 07:07:00 [facility] ABORH 2021-10-15 Osman Villalobos [facility] 07:07:00 [facility] ANTIBODY SCREEN 2021-10-15 Griselda [facility] 07:07:00 [facility] CLOT EXPIRATION DATE 2021-10-15 Osman Villalobos [facility] 07:07:00 [facility] TMP INTERPRETATION 2021-10-15 Osman Villalobos [facility] ANTIBODY SCREEN NEGATIVE 07:07:00 MD Gibson [facility] TMP CROSSMATCH 2021-10-15 Griselda [facility] INTERPRETATION 07:07:00 [facility] BLOODCULTURE 2021-10-15 Griselda [facility] 07:07:00 [facility] XR CHEST 1 VW 2021-10-15 Griselda [facility] 06:26:13 [facility] OSCILLATORY PEP 2021-10-15 [facility] 05:45:05 Maryse [facility] POC GLUCOSE SCREEN 2021-10-15 Sofya Elmore [facility] 05:42:00 [facility] EKG, 12-LEAD (PORTABLE) 2021-10-15 Osman Villalobos [facility] 00:00:00 [facility] OSI CHEST 2021-10-14 Vivian [facility] xas 14:45:00 [facility] FL MODIFIED BARIUM SWALLOW 2021-09-23 Ene Polk [facility] W SPEECH 15:46:[address] [facility] [address] SOFT TISSUE NECK W 2021-09-20 Rj [facility] CONTRAST 21:26:[address] [facility] [address] CHEST W CONTRAST 2021-09-20 [facility] [place] 21:26:19 [facility] BLOOD UREA NITROGEN 2021-09-20 [facility] [place] 16:58:00 [facility] SERUM CREATININE 2021-09-20 [facility] 16:58:00 [facility] THYROID STIMULATING 2021-09-20 Rj, [facility] [place] HORMONE 16:58:00 [facility] FREE THYROXINE 2021-09-20 [facility] [place] 16:58:00 [facility] SERUM CREATININE 2021-09-20 [facility] 16:58:00 [facility] .GLOMERULAR FILTRATION 2021-09-20 [facility] 16:58:00 [facility] POC GLUCOSE SCREEN 2021-08-31 Talia Rush [facility] 15:15:00 [facility] BASIC METABOLIC PANEL, 2021-08-31 opLeida waddell [facility] CALCIUM TOTAL 09:26:00 [facility] MAGNESIUM LEVEL 2021-08-31 ThoppiLeida mcintosh [facility] ex 09:26:00 [facility] PHOSPHORUS LEVEL 2021-08-31 opLeida waddell [facility] 09:26:00 [facility] COMPLETE BLOOD COUNT W/ 2021-08-31 opLeida waddell [facility] DIFFERENTIAL 09:26:00 [facility] GLUCOSE LEVEL 2021-08-31 Leida reaves [facility] ex 09:26:00 [facility] BLOOD UREA NITROGEN 2021-08-31 opLeida waddell [facility] 09:26:00 [facility] ELECTROLYTE PANEL 2021-08-31 ThLeida reaves [facility] 09:26:00 [facility] SERUM CREATININE 2021-08-31 opLeida waddell [facility] 09:26:00 [facility] .GLOMERULAR FILTRATION 2021-08-31 ThopLeida waddell [facility] RATE 09:26:00 [facility] CALCIUM LEVEL TOTAL 2021-08-31 opLeida waddell [facility] 09:26:00 [facility] Results CBC 2021-08-31 opLeida waddell [facility] ex 09:26:00 [facility] MANUAL DIFFERENTIAL 2021-08-31 Leida Frank [facility] 09:26:00 [facility] POC GLUCOSE SCREEN 2021-08-31 [facility] 03:06:00 [facility] POC GLUCOSE SCREEN 2021-08-30 [facility] 21:50:00 [facility] FL MODIFIED BARIUM SWALLOW 2021-08-30 Robert Rashid [facility] W SPEECH 20:15:38 [facility] POC GLUCOSE SCREEN 2021-08-30 [facility] 17:35:00 [facility] POC GLUCOSE SCREEN 2021-08-30 [facility] 12:52:00 [facility] BASIC METABOLIC PANEL, 2021-08-30 Leida Frank [facility] CALCIUM TOTAL 09:36:00 [facility] MAGNESIUM LEVEL 2021-08-30 Leida Frank [facility] ex 09:36:00 [facility] PHOSPHORUS LEVEL 2021-08-30 Leida reaves [facility] 09:36:00 [facility] COMPLETE BLOOD COUNT W/ 2021-08-30 Leida Frank [facility] DIFFERENTIAL 09:36:00 [facility] GLUCOSE LEVEL 2021-08-30 Leida reaves [facility] 09:36:00 [facility] BLOOD UREA NITROGEN 2021-08-30 Leida Frank [facility] 09:36:00 [facility] ELECTROLYTE PANEL 2021-08-30 Leida reaves [facility] 09:36:00 [facility] SERUM CREATININE 2021-08-30 Leida Frank [facility] 09:36:00 [facility] .GLOMERULAR FILTRATION 2021-08-30 Leida Frank [facility] RATE 09:36:00 [facility] CALCIUM LEVEL TOTAL 2021-08-30 Leida Frank [facility] 09:36:00 [facility] Results CBC 2021-08-30 Leida Frank [facility] exas 09:36:00 [facility] MANUAL DIFFERENTIAL 2021-08-30 Leida Frank [facility] 09:36:00 [facility] POC GLUCOSE SCREEN 2021-08-30 [facility] 03:07:00 [facility] XR ABDOMEN 1 VW PORTABLE 2021-08-29 Arnot [facility] 23:11:44 [facility] POC GLUCOSE SCREEN 2021-08-29 [facility] 22:46:00 [facility] POC GLUCOSE SCREEN 2021-08-29 [facility] 21:32:00 [facility] PATHOLOGY BIOPSY 2021-08-29 Michael Flowers [facility] INTERPRETATION 19:14:00 [facility] DIAGNOSTIC UPPER 2021-08-29 Michael Flowers [facility] GASTROINTESTINAL ENDOSCOPY 18:46:00 MD Yue martinez [facility] DIAGNOSTIC FLEXIBLE 2021-08-29 Michael Flowers [facility] COLONOSCOPY PROXIMAL TO 18:46:00 MD Patel [facility] SPLENIC FLEXURE Center POC GLUCOSE SCREEN 2021-08-29 [facility] 18:22:00 [facility] POC GLUCOSE SCREEN 2021-08-29 [facility] 15:21:00 [facility] BASIC METABOLIC PANEL, 2021-08-29 Leida Frank [facility] CALCIUM TOTAL 10:31:00 [facility] MAGNESIUM LEVEL 2021-08-29 Leida Frank [facility] exas 10:31:00 [facility] PHOSPHORUS LEVEL 2021-08-29 Leida Frank [facility] 10:31:00 [facility] COMPLETE BLOOD COUNT W/ 2021-08-29 Leida Frank [facility] DIFFERENTIAL 10:31:00 [facility] PROTHROMBIN TIME 2021-08-29 Robert Rashid [facility] exas 10:31:00 [facility] GLUCOSE LEVEL 2021-08-29 Leida Frank [facility] ex 10:31:00 [facility] BLOOD UREA NITROGEN 2021-08-29 Leida Frank [facility] 10:31:00 [facility] ELECTROLYTE PANEL 2021-08-29 Leida Frank [facility] 10:31:00 [facility] SERUM CREATININE 2021-08-29 Leida Frank [facility] 10:31:00 [facility] .GLOMERULAR FILTRATION 2021-08-29 Leida Frank [facility] RATE 10:31:00 [facility] CALCIUM LEVEL TOTAL 2021-08-29 Leida Frank [facility] 10:31:00 [facility] Results CBC 2021-08-29 Leida Frank [facility] ex 10:31:00 [facility] MANUAL DIFFERENTIAL 2021-08-29 Leida Frank [facility] 10:31:00 [facility] POC GLUCOSE SCREEN 2021-08-29 [facility] 02:15:00 [facility] POC GLUCOSE SCREEN 2021-08-28 Rashid [facility] 21:24:00 [facility] POC GLUCOSE SCREEN 2021-08-28 [facility] 13:49:00 [facility] BASIC METABOLIC PANEL, 2021-08-28 Leida Frank [facility] CALCIUM TOTAL 08:13:00 [facility] MAGNESIUM LEVEL 2021-08-28 Leida Frank [facility] ex 08:13:00 [facility] PHOSPHORUS LEVEL 2021-08-28 Leida Frank [facility] 08:13:00 [facility] COMPLETE BLOOD COUNT W/ 2021-08-28 Leida Frank [facility] DIFFERENTIAL 08:13:00 [facility] GLUCOSE LEVEL 2021-08-28 Leida Frank [facility] ex 08:13:00 [facility] BLOOD UREA NITROGEN 2021-08-28 Leida Frank [facility] 08:13:00 [facility] ELECTROLYTE PANEL 2021-08-28 Leida Frank [facility] 08:13:00 [facility] SERUM CREATININE 2021-08-28 Leida Frank [facility] 08:13:00 [facility] .GLOMERULAR FILTRATION 2021-08-28 Leida Frank [facility] RATE 08:13:00 [facility] CALCIUM LEVEL TOTAL 2021-08-28 Leida Frank [facility] 08:13:00 [facility] Results CBC 2021-08-28 Leida Frank [facility] 08:13:00 [facility] MANUAL DIFFERENTIAL 2021-08-28 Leida Frank [facility] 08:13:00 [facility] POC GLUCOSE SCREEN 2021-08-28 [facility] 03:20:00 [facility] POC GLUCOSE SCREEN 2021-08-27 [facility] 18:30:00 [facility] POC GLUCOSE SCREEN 2021-08-27 [facility] 13:47:00 [facility] BASIC METABOLIC PANEL, 2021-08-27 Leida Frank [facility] CALCIUM TOTAL 09:47:00 [facility] MAGNESIUM LEVEL 2021-08-27 Leida Frank [facility] 09:47:00 [facility] PHOSPHORUS LEVEL 2021-08-27 Leida reaves [facility] 09:47:00 [facility] COMPLETE BLOOD COUNT W/ 2021-08-27 Leida Frank [facility] DIFFERENTIAL 09:47:00 [facility] GLUCOSE LEVEL 2021-08-27 Carlyle [facility] 09:47:00 [facility] BLOOD UREA NITROGEN 2021-08-27 Carlyle [facility] 09:47:00 [facility] ELECTROLYTE PANEL 2021-08-27 Carlyle [facility] 09:47:00 [facility] SERUM CREATININE 2021-08-27 Carlyle [facility] 09:47:00 [facility] .GLOMERULAR FILTRATION 2021-08-27 Elvia Tadeo [facility] RATE 09:47:00 [facility] CALCIUM LEVEL TOTAL 2021-08-27 Carlyle [facility] 09:47:00 [facility] Results CBC 2021-08-27 Carly[facility] 09:47:00 [facility] MANUAL DIFFERENTIAL 2021-08-27 Carlyle [facility] 09:47:00 [facility] POC GLUCOSE SCREEN 2021-08-27 [facility] 01:25:00 [facility] POC GLUCOSE SCREEN 2021-08-26 [facility] 21:49:00 [facility] POC GLUCOSE SCREEN 2021-08-26 Olegario Rain [facility] 17:17:00 [facility] POC GLUCOSE SCREEN 2021-08-26 Olegario Rain [facility] 13:44:00 [facility] BASIC METABOLIC PANEL, 2021-08-26 Leida Frank [facility] CALCIUM TOTAL 13:10:00 [facility] MAGNESIUM LEVEL 2021-08-26 Leida Frank [facility] ex 13:10:00 [facility] PHOSPHORUS LEVEL 2021-08-26 Leida Frank [facility] 13:10:00 [facility] COMPLETE BLOOD COUNT W/ 2021-08-26 Leida Frank [facility] DIFFERENTIAL 13:10:00 [facility] GLUCOSE LEVEL 2021-08-26 Carlyle [facility] 13:10:00 [facility] BLOOD UREA NITROGEN 2021-08-26 [facility] 13:10:00 [facility] ELECTROLYTE PANEL 2021-08-26 [facility] 13:10:00 [facility] SERUM CREATININE 2021-08-26 [facility] 13:10:00 [facility] .GLOMERULAR FILTRATION 2021-08-26 [facility] 13:10:00 [facility] CALCIUM LEVEL TOTAL 2021-08-26 [facility] 13:10:00 [facility] Results CBC 2021-08-26 [facility] 13:10:00 [facility] MANUAL DIFFERENTIAL 2021-08-26 [facility] 13:10:00 [facility] TRANSFUSE RED BLOOD CELLS 2021-08-26 [facility] 09:17:00 [facility] TRANSFUSE RED BLOOD CELLS 2021-08-26 [facility] 05:58:00 [facility] POC GLUCOSE SCREEN 2021-08-26 Olegario Rain [facility] 04:03:00 [facility] CONFIRM ABORH TYPE 2021-08-25 Hilario Pardo [facility] 23:19:00 [facility] TYPE AND SCREEN 2021-08-25 Bossman Castillo [facility] [place] 23:15:00 [facility] COMPREHENSIVE METABOLIC 2021-08-25 Bossman Castillo [facility] PANEL 23:15:00 [facility] MAGNESIUM LEVEL 2021-08-25 [facility] [place] 23:15:00 [facility] PHOSPHORUS LEVEL 2021-08-25 Bossman Castillo [facility] [place] 23:15:00 [facility] PROTHROMBIN TIME 2021-08-25 Bossman Castillo [facility] exas 23:15:00 [facility] APTT 2021-08-25 Jonathan Bossman [facility] [place] 23:15:00 [facility] ABORH 2021-08-[address] [facility] [place] 23:15:00 [facility] GLUCOSE LEVEL 2021-08-[address] [facility] [place] 23:15:00 [facility] BLOOD UREA NITROGEN 2021-08-25 Jonathan Bossman [facility] 23:15:00 [facility] ANTIBODY SCREEN 2021-08-[address] [facility] [place] 23:15:00 [facility] ELECTROLYTE PANEL 2021-08-25 Jonathan [facility] 23:15:00 [facility] SERUM CREATININE 2021-08-25 [facility] 23:15:00 [facility] .GLOMERULAR FILTRATION 2021-08-25 Jonathan [facility] RATE 23:15:00 [facility] CALCIUM LEVEL TOTAL 2021-08-25 Jonathan Bossman [facility] 23:15:00 [facility] ALBUMIN LEVEL 2021-08-[address] [facility] [place] 23:15:00 [facility] ALKALINE PHOSPHATASE 2021-08-25 [facility] 23:15:00 [facility] ALANINE AMINOTRANSFERASE 2021-08-25 Bossman Castillo [facility] 23:15:00 [facility] ASPARTATE AMINOTRANSFERASE 2021-08-25 Bossman Castillo [facility] 23:15:00 [facility] TOTAL PROTEIN 2021-08-[address] [facility] [place] 23:15:00 [facility] FRACTIONATED BILIRUBIN 2021-08-25 [facility] 23[facility]15[facility]00 [facility] CLOT EXPIRATION DATE 2021-08-25 Jonathan [facility] 23:15:00 [facility] TMP INTERPRETATION 2021-08-25 Bossman Castillo [facility] ANTIBODY SCREEN NEGATIVE 23:15:00 [facility] TMP CROSSMATCH 2021-08-[address] 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 21:47:00 [facility] COMPLETE BLOOD COUNT W/ 2021-08-25 Lloyd Vargas [facility] DIFFERENTIAL 17:41:49 [facility] Results CBC 2021-08-25 Lloyd Vargas [facility] 17:41:49 [facility] MANUAL DIFFERENTIAL 2021-08-25 Lloyd Vargas [facility] 17:41:49 [facility] XR CHEST 2 VW 2021-08-25 Anca Maurer [facility] 16:17:44 [facility] FLEXIBLE NASOPHARYNGEAL 2021-08-22 Rebecca Brown [facility] LARYNGOSCOPY 15:38:27 [facility] COVID-19 (SARS-COV-2) 2021-08-20 Alexandra De La Rosa [facility] PCR-ASYMPTOMATIC MC 19:44:00 [facility] POC GLUCOSE SCREEN 2021-07-12 Cintia Adame [facility] 23:42:00 [facility] BASIC METABOLIC PANEL, 2021-07-12 [facility] CALCIUM TOTAL 21:09:00 [facility] MAGNESIUM LEVEL 2021-07-12 Srinath [facility] 21:09:00 [facility] PHOSPHORUS LEVEL 2021-07-12 [facility] 21:09:00 [facility] GLUCOSE LEVEL 2021-07-12 GabrielCarriCatskill [facility] Centerlauren[facility] 21:09:00 Ino CRAWLEY [facility] BLOOD UREA NITROGEN 2021-07-12 [facility] 21:09:00 Ino CRAWLEY [facility] ELECTROLYTE PANEL 2021-07-12 [facility] 21:09:00 Ino CRAWLEY [facility] SERUM CREATININE 2021-07-12 [facility]olynSt[facility] 21:09:00 Ino CRAWLEY [facility] .GLOMERULAR FILTRATION 2021-07-12 [facility] RATE 21:09:00 Ino Dorantes [facility] CALCIUM LEVEL TOTAL 2021-07-12 [facility] 21:09:00 Ino CRAWLEY [facility] POC GLUCOSE SCREEN 2021-07-12 [facility] 19:45:00 [facility] POC GLUCOSE SCREEN 2021-07-12 [facility] 15:40:00 [facility] COMPLETE BLOOD COUNT W/ 2021-07-12 Sharlene Madrigal [facility] DIFFERENTIAL 07:56:00 Maryse CRAWLEY [facility] BASIC METABOLIC PANEL, 2021-07-12 Kwaku Yo [facility] CALCIUM TOTAL 07:56:00 [facility] MAGNESIUM LEVEL 2021-07-12 [facility] 07:56:00 [facility] PHOSPHORUS LEVEL 2021-07-12 [facility] 07:56:00 [facility] GLUCOSE LEVEL 2021-07-12 [facility] 07:56:00 Ino CRAWLEY [facility] BLOOD UREA NITROGEN 2021-07-12 [facility]GwendolynS[facility] 07:56:00 Ino CRAWLEY [facility] ELECTROLYTE PANEL 2021-07-12 JuanGwendolynShriners Hospitals [facility] 07:56:00 Ino CRAWLEY [facility] SERUM CREATININE 2021-07-12 [facility] 07:56:00 Ino CRAWLEY [facility] .GLOMERULAR FILTRATION 2021-07-12 [facility] RATE 07:56:00 Ino CRAWLEY [facility] CALCIUM LEVEL TOTAL 2021-07-12 [facility]ri[facility] 07:56:00 Ino CRAWLEY [facility] Results CBC 2021-07-12 Eugene [facility] exas 07:56:00 Maryse CRAWLEY [facility] MANUAL DIFFERENTIAL 2021-07-12 Eugene [facility] 07:56:00 Maryse CRAWLEY [facility] POC GLUCOSE SCREEN 2021-07-12 [facility] 04:09:00 [facility] POC GLUCOSE SCREEN 2021-07-12 [facility] 02:52:00 [facility] POC GLUCOSE SCREEN 2021-07-11 [facility] 22:27:00 [facility] ECHOCARDIOGRAM 2D COMPLETE 2021-07-11 [facility] 22:16:42 [facility] BASIC METABOLIC PANEL, 2021-07-[address] [facility] CALCIUM TOTAL 20:33:00 [facility] MAGNESIUM LEVEL 2021-07-11 [facility] 20:33:00 [facility] PHOSPHORUS LEVEL 2021-07-11 [facility] 20:33:00 [facility] GLUCOSE LEVEL 2021-07-11 [facility] 20:33:00 Ino CRAWLEY [facility] BLOOD UREA NITROGEN 2021-07-11 [facility] 20:33:00 Ino CRAWLEY [facility] ELECTROLYTE PANEL 2021-07-11 JuanSierra [facility]sonlauren[facility] 20:33:00 Ino CRAWLEY [facility] SERUM CREATININE 2021-07-11 [facility] 20:33:00 Ino CRAWLEY [facility] .GLOMERULAR FILTRATION 2021-07-11 [facility] RATE 20:33:[address] Ino CRAW[address] [facility] CALCIUM LEVEL TOTAL 2021-07-11 JuanGwendolynS[facility] 20:33:00 Ino CRAWLEY [facility] POC GLUCOSE SCREEN 2021-07-11 Gavino [facility] 18:33:[address] [facility] POC GLUCOSE SCREEN 2021-07-11 [place] [facility] 14:52:00 [facility] BASIC METABOLIC PANEL, 2021-07-11 Srinath Kwaku [facility] CALCIUM TOTAL 08:00:00 [facility] MAGNESIUM LEVEL 2021-07-11 [facility] 08:00:[address] [facility] PHOSPHORUS LEVEL 2021-07-11 [facility] 08:00:00 [facility] GLUCOSE LEVEL 2021-07-11 GabrielGwendolynShriners Hospitals for Children 08:00:00 Ino CRAWLEY [facility] BLOOD UREA NITROGEN 2021-07-11 JuanGwendolynSevier Valley [facility] 08:00:00 Ino CRAWLEY [facility] ELECTROLYTE PANEL 2021-07-11 [facility] 08:[facility]00 Ino CRAWLEY [facility] SERUM CREATININE 2021-07-11 Markuslocated within [facility] centerlien[facility]yn[facility] 08:00:00 Ino CRAWLEY [facility] .GLOMERULAR FILTRATION 2021-07-11 [facility] RATE 08:00:00 Ino CRAWLEY [facility] CALCIUM LEVEL TOTAL 2021-07-11 [facility] 08:00:00 Ino CRAWLEY [facility] COMPLETE BLOOD COUNT W/ 2021-07-11 Sharlene Madrigal [facility] DIFFERENTIAL 07:46:00 Maryse CRAWLEY [facility] Results CBC 2021-07-11 Eugene [facility] exas 07:46:00 [address] [facility] MANUAL DIFFERENTIAL 2021-07-11 Eugene [facility] 07:46:00 Maryse CRAWLEY [facility] POC GLUCOSE SCREEN 2021-07-11 [facility] 03:45:00 Ino [address] [facility] POC GLUCOSE SCREEN 2021-07-11 [facility] 01:36:00 Ino CRAWLEY [facility] EKG, 12-LEAD (PORTABLE) 2021-07-[address] [facility] 00:00:00 MD Dorantes [facility] POC GLUCOSE SCREEN 2021-07-10 JuanSierra [facility]ren[facility] 22:26:00 Ino CRAWLEY [facility] BASIC METABOLIC PANEL, 2021-07-[address] [facility] CALCIUM TOTAL 21:02:00 [facility] MAGNESIUM LEVEL 2021-07-10 Kwaku Yo Ncpayton [facility] 21:02:00 [facility] PHOSPHORUS LEVEL 2021-07-10 [facility] Kwaku Ncpayton [facility] 21:02:00 [facility] GLUCOSE LEVEL 2021-07-10 JuanSierra [facility] 21:02:00 Ino CRAWLEY [facility] BLOOD UREA NITROGEN 2021-07-10 [facility] 21:02:00 Ino CRAWLEY [facility] ELECTROLYTE PANEL 2021-07-10 JuanSierra [facility] 21:02:00 Ino CRAWLEY [facility] SERUM CREATININE 2021-07-10 Mark[facility]located within [facility] 21:02:00 Ino CRAWLEY [facility] .GLOMERULAR FILTRATION 2021-07-10 [facility] RATE 21:02:00 Ino CRAWLEY [facility] CALCIUM LEVEL TOTAL 2021-07-10 [facility]ynS[facility] 21:02:00 Ino CRAWLEY [facility] POC GLUCOSE SCREEN 2021-07-10 JuanS[facility] 17:40:00 Ino CRAWLEY [facility] COMPLETE BLOOD COUNT W/ 2021-07-10 Sharlene Madrigal [facility] DIFFERENTIAL 12:09:00 Maryse CRAWLEY [facility] BASIC METABOLIC PANEL, 2021-07-10 Kwaku Yo [facility] CALCIUM TOTAL 12:09:[address] [facility] MAGNESIUM LEVEL 2021-07-10 Srinath [facility] 12:09:[address] [facility] PHOSPHORUS LEVEL 2021-07-10 [facility] 12:09:00 [facility] TROPONIN T 2021-07-10 Srinath [facility] 12:09:00 [facility] GLUCOSE LEVEL 2021-07-10 [facility] 12:09:00 Ino CRAWLEY [facility] BLOOD UREA NITROGEN 2021-07-10 [facility] 12:09:00 Ino CRAWLEY [facility] ELECTROLYTE PANEL 2021-07-10 [facility] 12:09:00 Ino CRAWLEY [facility] SERUM CREATININE 2021-07-10 [facility] 12:09:00 Ino CRAWLEY [facility] .GLOMERULAR FILTRATION 2021-07-10 Markuslocated within [facility] centerlienGwendolynSan [facility] RATE 12:09:00 Ino CRAWLEY [facility] CALCIUM LEVEL TOTAL 2021-07-10 [facility] 12:09:00 Ino CRAWLEY [facility] Results CBC 2021-07-[address] [facility] exas 12:09:00 Maryse CRAWLEY [facility] MANUAL DIFFERENTIAL 2021-07-10 [facility] 12:09:00 Maryse CRAWLEY [facility] POC GLUCOSE SCREEN 2021-07-10 [facility] 05:11:00 Ino CRAWLEY [facility] BASIC METABOLIC PANEL, 2021-07-10 [facility] CALCIUM IONIZED 04:35:00 [facility] MAGNESIUM LEVEL 2021-07-10 [facility] 04:35:00 [facility] PHOSPHORUS LEVEL 2021-07-10 [facility] 04:35:00 [facility] TROPONIN T 2021-07-10 [facility] 04:35:00 MD [facility] GLUCOSE LEVEL 2021-07-10 JuanGwendolynShrin[facility] 04:35:00 Ino CRAWLEY [facility] ELECTROLYTE PANEL 2021-07-10 [facility]olynShrin[facility] 04:35:00 Ino CRAWLEY [facility] SERUM CREATININE 2021-07-10 Markuslocated within [facility] centerlienSierra TucsonlaurenWilson [facility] [place] 04:35:00 Ino CRAWLEY [facility] .GLOMERULAR FILTRATION 2021-07-10 [facility] RATE 04:35:00 Ino CRAWLEY [facility] CALCIUM IONIZED, VENOUS 2021-07-10 [facility] 04:35:00 Ino CRAWLEY [facility] BLOOD UREA NITROGEN 2021-07-10 [facility]olynS[facility] 04:35:00 Ino CRAWLEY [facility] LOWER RESPIRATORY CULTURE 2021-07-09 Kaushal Proctor [facility] W/ GRAM STAIN 23:33:00 [facility] POC GLUCOSE SCREEN 2021-07-09 JuanGwendolynShriners Hospitals for [facility] 22:30:00 Ino CRAWLEY [facility] VASCULAR ACCESS ULTRASOUND 2021-07-09 [facility]olynO[facility] 21:00:36 Ino CRAWLEY [facility] BASIC METABOLIC PANEL, 2021-07-09 Kwaku Yo [facility] CALCIUM TOTAL 19:45:00 [facility] MAGNESIUM LEVEL 2021-07-09 Kwaku Yo Ncpayton [facility] 19:45:00 [facility] PHOSPHORUS LEVEL 2021-07-09 Srinath Kwaku Ncpayton [facility] 19:45:00 [facility] GLUCOSE LEVEL 2021-07-09 [facility]michaelGrac[facility] Square HospitallaurenShrin[facility] 19:45:00 Ino CRAWLEY [facility] BLOOD UREA NITROGEN 2021-07-09 [facility]olynS[facility] 19:45:00 Ino CRAWLEY [facility] ELECTROLYTE PANEL 2021-07-09 JuanGwendolynShriners Hospitals for Children 19:45:00 Ino CRAWLEY [facility] SERUM CREATININE 2021-07-09 [facility] HospitalfrancisGwendolynSt[facility] 19:45:00 Ino CRAWLEY [facility] .GLOMERULAR FILTRATION 2021-07-09 Zandra, [facility] RATE 19:45:00 Ino CRAWLEY [facility] CALCIUM LEVEL TOTAL 2021-07-09 [facility] 19:45:00 Ino CRAWLEY [facility] OSCILLATORY PEP 2021-07-09 JuanGwendolynShriners Hospitals for Children 19:21:45 Ino CRAWLEY [facility] POC GLUCOSE SCREEN 2021-07-09 JuanGwendolynShriners Hospitals for Children 18:42:00 Ino CRAWLEY [facility] POC GLUCOSE SCREEN 2021-07-09 [facility] HospitalGwendolynShrin[facility] 14:56:00 Ino CRAWLEY [facility] TROPONIN T 2021-07-09 Kaushal Proctor T [facility] 12:28:00 [facility] BASIC METABOLIC PANEL, 2021-07-09 [facility] CALCIUM TOTAL 12:28:00 Maryse CRAWLEY [facility] COMPLETE BLOOD COUNT W/ 2021-07-09 [facility] DIFFER[facility] 12:28:00 Maryse CRAWLEY [facility] MAGNESIUM LEVEL 2021-07-[address] [facility] exas 12:28:00 Maryse CRAWLEY [facility] PHOSPHORUS LEVEL 2021-07-[address] 12:28:00 Maryse CRAWLEY [facility] GLUCOSE LEVEL 2021-07-[address] [facility] exas 12:28:00 Maryse CRAWLEY [facility] BLOOD UREA NITROGEN 2021-07-09 [facility] 12:28:00 Maryse CRAWLEY [facility] ELECTROLYTE PANEL 2021-07-09 [facility] 12:28:00 Maryse CRAWLEY [facility] SERUM CREATININE 2021-07-09 [facility] 12:28:00 Maryse [facility] .GLOMERULAR FILTRATION 2021-07-09 Eugene, [facility] 12:28:00 Maryse CRAWLEY [facility] CALCIUM LEVEL TOTAL 2021-07-09 [facility] 12:28:00 Maryse [facility] Results CBC 2021-07-[address] [facility] exas 12:28:00 Maryse CRAWLEY [facility] MANUAL DIFFERENTIAL 2021-07-09 [facility] 12:28:00 Maryse [facility] POC GLUCOSE SCREEN 2021-07-09 [facility] [place] 04:08:00 Maryse [facility] POC GLUCOSE SCREEN 2021-07-08 [facility] [place] 23:49:00 Maryse [facility] STREPTOCOCCUS PNEUMONIAE 2021-07-08 Kaushal Proctor [facility] URINE ANTIGEN 23:17:00 [facility] LEGIONELLA URINE ANTIGEN 2021-07-08 Esthela [facility] 23:17:00 [facility] LEGIONELLA URINE ANTIGEN 2021-07-08 [facility] PATH REVIEW 23:17:00 Maryse [facility] STREPTOCOCCAL URINE 2021-07-08 [facility] ANTIGEN PATH REVIEW 23:17:00 Maryse [facility] GENERAL LABORATORY ADD ON 2021-07-08 Christina [facility] TEST 21:35:00 [facility] MRSA SCREENING CULTURE 2021-07-08 Kaushal Proctor [facility] 21:23:[address] [facility] [address] CHEST PULMONARY 2021-07-08 Olegario Rain [facility] EMBOLISM W CONTRAST 19:38:55 [facility] XR ABDOMEN AP 2021-07-08 Christina, [facility] xas 19:31:37 [facility] POC CHEM 8 2021-07-08 Christina, [facility] xas 18:14:00 [facility] POC CRITICAL 2021-07-08 [facility] 18:14:00 [facility] COMPLETE BLOOD COUNT W/ 2021-07-[address] [facility] DIFFERENTIAL 18:13:00 [facility] COMPREHENSIVE METABOLIC 2021-07-[address] [facility] PANEL 18:13:00 [facility] MAGNESIUM LEVEL 2021-07-08 Olegario Rain [facility] 18:13:00 [facility] PHOSPHORUS LEVEL 2021-07-08 Olegario Rain [facility] 18:13:00 [facility] PROTHROMBIN TIME 2021-07-08 Olegario Rain [facility] 18:13:00 [facility] APTT 2021-07-08 Olegario Rain [facility] 18:13:00 [facility] D DIMER 2021-07-08 Olegario Rain [facility] 18:13:00 [facility] CARDIAC PANEL 2021-07-08 Olegario Rain [facility] 18:13:00 [facility] Results CBC 2021-07-08 Olegario Rain [facility] 18:13:00 [facility] MANUAL DIFFERENTIAL 2021-07-08 Olegario Rain [facility] 18:13:00 [facility] GLUCOSE LEVEL 2021-07-08 Olegario Rain [facility] 18:13:00 [facility] BLOOD UREA NITROGEN 2021-07-08 Olegario Rain [facility] 18:13:00 [facility] ELECTROLYTE PANEL 2021-07-08 Olegario Rain [facility] 18:13:00 [facility] SERUM CREATININE 2021-07-08 Olegario Rain [facility] 18:13:00 [facility] .GLOMERULAR FILTRATION 2021-07-08 Olegario Rain [facility] RATE 18:13:00 [facility] CALCIUM LEVEL TOTAL 2021-07-08 Olegario Rain [facility] 18:13:00 [facility] ALBUMIN LEVEL 2021-07-08 Olegario Rain [facility] 18:13:00 [facility] ALKALINE PHOSPHATASE 2021-07-08 Olegario Rain [facility] 18:13:00 [facility] ALANINE AMINOTRANSFERASE 2021-07-08 [facility] 18:13:00 [facility] ASPARTATE AMINOTRANSFERASE 2021-07-08 Olegario Rain [facility] 18:13:00 [facility] TOTAL PROTEIN 2021-07-08 Olegario Rain [facility] 18:13:00 [facility] FRACTIONATED BILIRUBIN 2021-07-08 Olegario Rain [facility] 18:13:00 [facility] PROCALCITONIN 2021-07-08 Olegario Rain [facility] 18:13:00 [facility] XR CHEST 1 VW 2021-07-08 Olegario Rain [facility] 17:38:45 [facility] COVID-19 (SARS-COV-2) 2021-07-08 Olegario Rain [facility] ASYMPTOMATIC-LT 17:23:[address] [facility] [address] HEAD WO CONTRAST 2021-07-08 Olegario Rain [facility] 17:05:55 [facility] POC GLUCOSE SCREEN 2021-07-08 Josette Vasquez [facility] 16:47:00 [facility] EKG, 12-LEAD (PORTABLE) 2021-07-[address] [facility] 00:00:00 [facility] COMPREHENSIVE METABOLIC 2021-07-04 Thang [facility] PANEL 17:10:00 [facility] COMPLETE BLOOD COUNT W/ 2021-07-04 Thang [facility] DIFFERENTIAL 17:10:00 [facility] MAGNESIUM LEVEL 2021-07-04 Thang [facility] xas 17:10:00 [facility] PHOSPHORUS LEVEL 2021-07-04 [facility] 17:10:00 [facility] GLUCOSE LEVEL 2021-07-04 [facility] xas 17:10:00 [facility] BLOOD UREA NITROGEN 2021-07-04 Thang [facility] 17:10:00 [facility] ELECTROLYTE PANEL 2021-07-04 Thang [facility] 17:10:00 [facility] SERUM CREATININE 2021-07-04 [facility] 17:10:00 [facility] .GLOMERULAR FILTRATION 2021-07-04 [facility] RATE 17:10:00 [facility] CALCIUM LEVEL TOTAL 2021-07-04 Thang [facility] 17:10:00 [facility] ALBUMIN LEVEL 2021-07-04 Thang [facility] xas 17:10:00 [facility] ALKALINE PHOSPHATASE 2021-07-04 Thang [facility] 17:10:00 [facility] ALANINE AMINOTRANSFERASE 2021-07-04 Thang [facility] 17:10:00 [facility] ASPARTATE AMINOTRANSFERASE 2021-07-04 Yumi Desir [facility] 17:10:00 [facility] TOTAL PROTEIN 2021-07-04 Thang [facility] xas 17:10:00 [facility] FRACTIONATED BILIRUBIN 2021-07-04 [facility] 17:10:00 [facility] Results CBC 2021-07-04 Thang [facility] xas 17:10:00 [facility] MANUAL DIFFERENTIAL 2021-07-04 [facility] 17:10:00 [facility] COMPREHENSIVE METABOLIC 2021-06-27 [facility] PANEL 14:00:00 [facility] COMPLETE BLOOD COUNT W/ 2021-06-27 [facility] DIFFERENTIAL 14:00:00 [facility] MAGNESIUM LEVEL 2021-06-27 [facility] 14:00:00 [facility] PHOSPHORUS LEVEL 2021-06-27 [facility] ex 14:00:00 [facility] GLUCOSE LEVEL 2021-06-27 [facility] 14:00:00 [facility] BLOOD UREA NITROGEN 2021-06-27 [facility] 14:00:00 [facility] ELECTROLYTE PANEL 2021-06-27 [facility] 14:00:00 [facility] SERUM CREATININE 2021-06-27 [facility] 14:00:00 [facility] .GLOMERULAR FILTRATION 2021-06-27 [facility] RATE 14:00:00 [facility] CALCIUM LEVEL TOTAL 2021-06-27 [facility] 14:00:00 [facility] ALBUMIN LEVEL 2021-06-27 [facility] 14:00:00 [facility] ALKALINE PHOSPHATASE 2021-06-27 [facility] 14:00:00 [facility] ALANINE AMINOTRANSFERASE 2021-06-27 [facility] 14:00:00 [facility] ASPARTATE AMINOTRANSFERASE 2021-06-27 [facility] 14:00:00 [facility] TOTAL PROTEIN 2021-06-27 [facility] 14:00:00 [facility] FRACTIONATED BILIRUBIN 2021-06-27 [facility] 14:00:00 [facility] Results CBC 2021-06-27 [facility] 14:00:00 [facility] MANUAL DIFFERENTIAL 2021-06-27 [facility] 14:00:00 [facility] ECG 12-LEAD 2021-06-24 [facility] 16:08:12 TROPONIN T 2021-06-22 Bela Beltrán [facility] 21:45:00 [facility] COMPLETE BLOOD COUNT W/ 2021-06-22 Tello Jeff, [facility] [place] DIFFERENTIAL 17:54:00 [facility] COMPREHENSIVE METABOLIC 2021-06-22 Elvia Ugalde [facility] [place] PANEL 17:54:00 [facility] er Center MAGNESIUM LEVEL 2021-06-22 Elvia Ugalde [facility] [place] 17:54:00 [facility] er Center PHOSPHORUS LEVEL 2021-06-22 Elvia Ugalde [facility] [place] 17:54:00 [facility] NT PRO BNP 2021-06-22 Elvia Ugalde [facility] [place] 17:54:00 [facility] CREATINE KINASE 2021-06-22 Elvia Ugalde [facility] [place] 17:54:00 [facility] CKMB 2021-06-22 Elvia Ugalde [facility] [place] 17:54:00 [facility] Results CBC 2021-06-22 Elvia Ugalde [facility] [place] 17:54:00 [facility] MANUAL DIFFERENTIAL 2021-06-22 Elvia Ugalde [facility] [place] 17:54:00 [facility] Center GLUCOSE LEVEL 2021-06-22 Elvia Ugalde [facility] [place] 17:54:00 [facility] BLOOD UREA NITROGEN 2021-06-22 Elvia Ugalde [facility] [place] 17:54:00 [facility] ELECTROLYTE PANEL 2021-06-22 Elvia Ugalde [facility] [place] 17:54:00 [facility] SERUM CREATININE 2021-06-22 Elvia Ugalde [facility] [place] 17:54:00 [facility] .GLOMERULAR FILTRATION 2021-06-22 Elvia Ugalde [facility] [place] RATE 17:54:00 [facility] CALCIUM LEVEL TOTAL 2021-06-22 Elvia Ugalde [facility] [place] 17:54:00 [facility] Center ALBUMIN LEVEL 2021-06-22 Elvia Ugalde [facility] [place] 17:54:00 [facility] ALKALINE PHOSPHATASE 2021-06-22 Elvia Ugalde [facility] 17:54:00 [facility] ALANINE AMINOTRANSFERASE 2021-06-22 Elvia Ugalde [facility] 17:54:00 [facility] ASPARTATE AMINOTRANSFERASE 2021-06-22 Elvia Ugalde [facility] 17:54:00 [facility] TOTAL PROTEIN 2021-06-[address] [facility] 17:54:00 [facility] FRACTIONATED BILIRUBIN 2021-06-22 Elvia Ugalde [facility] [place] [facility] 17:54:00 [facility] COVID-19 (SARS-COV-2) 2021-06-22 Elvia Ugalde Uni [facility] [place] [facility] ASYMPTOMATIC-LT 17:54:00 [facility] EKG, 12-LEAD (PORTABLE) 2021-06-22 Elvia Ugalde U [facility]The [facility] [place] [facility] 00:00:[address] [facility] [address] HEAD/NECK SIMULATION WO 2021-06-21 Alexandra De La Rosa [facility] CONTRAST (RO) 15:00:13 [facility] COMPREHENSIVE METABOLIC 2021-06-20 [facility] PANEL 14:07:00 [facility] COMPLETE BLOOD COUNT W/ 2021-06-20 [facility] DIFFERENTIAL 14:07:00 [facility] MAGNESIUM LEVEL 2021-06-20 [facility] xas 14:07:00 [facility] PHOSPHORUS LEVEL 2021-06-20 [facility] ex[facility] 14:07:00 [facility] GLUCOSE LEVEL 2021-06-20 [facility] xa 14:07:00 [facility] BLOOD UREA NITROGEN 2021-06-20 [facility] 14:07:00 [facility] ELECTROLYTE PANEL 2021-06-20 [facility] 14:07:00 [facility] SERUM CREATININE 2021-06-20 [facility] 14:07:00 [facility] .GLOMERULAR FILTRATION 2021-06-20 [facility] RATE 14:07:00 [facility] CALCIUM LEVEL TOTAL 2021-06-20 [facility] 14:07:00 [facility] ALBUMIN LEVEL 2021-06-20 [facility] xas 14:07:00 [facility] ALKALINE PHOSPHATASE 2021-06-20 [facility] 14:07:00 [facility] ALANINE AMINOTRANSFERASE 2021-06-20 [facility] 14:07:00 [facility] ASPARTATE AMINOTRANSFERASE 2021-06-20 [facility] 14:07:00 [facility] TOTAL PROTEIN 2021-06-20 [facility] xas 14:07:00 [facility] FRACTIONATED BILIRUBIN 2021-06-20 [facility] 14:07:00 [facility] Results CBC 2021-06-20 [facility] xa 14:07:00 [facility] MANUAL DIFFERENTIAL 2021-06-20 [facility] 14:07:00 [facility] COMPREHENSIVE METABOLIC 2021-06-13 [facility] PANEL 13:00:00 [facility] COMPLETE BLOOD COUNT W/ 2021-06-13 [facility] DIFFERENTIAL 13:00:00 [facility] MAGNESIUM LEVEL 2021-06-13 [facility] xa 13:00:00 [facility] PHOSPHORUS LEVEL 2021-06-13 [facility] exas 13:00:00 [facility] GLUCOSE LEVEL 2021-06-13 [facility] xa 13:00:00 [facility] BLOOD UREA NITROGEN 2021-06-13 [facility] 13:00:00 [facility] ELECTROLYTE PANEL 2021-06-13 [facility] 13:00:00 [facility] SERUM CREATININE 2021-06-13 [facility] exas 13:00:00 [facility] .GLOMERULAR FILTRATION 2021-06-13 [facility] RATE 13:00:00 [facility] CALCIUM LEVEL TOTAL 2021-06-13 [facility] 13:00:00 [facility] ALBUMIN LEVEL 2021-06-13 [facility] xa 13:00:00 [facility] ALKALINE PHOSPHATASE 2021-06-13 [facility] 13:00:00 [facility] ALANINE AMINOTRANSFERASE 2021-06-13 [facility] 13:[facility] ASPARTATE AMINOTRANSFERASE 2021-06-13 [facility] 13:00:00 [facility] TOTAL PROTEIN 2021-06-13 [facility] 13:[facility]00 [facility] FRACTIONATED BILIRUBIN 2021-06-13 [facility] 13:00:00 [facility] Results CBC 2021-06-13 [facility] 13:00:00 [facility] MANUAL DIFFERENTIAL 2021-06-13 [facility] 13:00:00 [facility] COMPREHENSIVE METABOLIC 2021-06-06 [facility] PANEL 12:58:00 [facility] COMPLETE BLOOD COUNT W/ 2021-06-06 [facility] DIFFERENTIAL 12:58:00 [facility] MAGNESIUM LEVEL 2021-06-06 [facility] xa 12:58:00 [facility] PHOSPHORUS LEVEL 2021-06-06 [facility] ex 12:58:00 [facility] GLUCOSE LEVEL 2021-06-06 [facility] xa 12:58:00 [facility] BLOOD UREA NITROGEN 2021-06-06 [facility] 12:58:00 [facility] ELECTROLYTE PANEL 2021-06-06 [facility] 12:58:00 [facility] SERUM CREATININE 2021-06-06 [facility] exas 12:58:00 [facility] .GLOMERULAR FILTRATION 2021-06-06 [facility] RATE 12:58:00 [facility] CALCIUM LEVEL TOTAL 2021-06-06 [facility] 12:58:00 [facility] ALBUMIN LEVEL 2021-06-06 [facility] 12:58:00 [facility] ALKALINE PHOSPHATASE 2021-06-06 [facility] 12:58[facility]00 [facility] ALANINE AMINOTRANSFERASE 2021-06-06 [facility] 12:58:00 [facility] ASPARTATE AMINOTRANSFERASE 2021-06-06 [facility] 12:58:00 [facility] TOTAL PROTEIN 2021-06-06 [facility] 12:58[facility]00 [facility] FRACTIONATED BILIRUBIN 2021-06-06 [facility] 12:58:00 [facility] Results CBC 2021-06-06 [facility] 12:58[facility]00 [facility] MANUAL DIFFERENTIAL 2021-06-06 [facility] 12:58:00 [facility] ELECTROLYTE PANEL 2021-05-30 [facility] 14:28:00 [facility] SERUM CREATININE 2021-05-30 [facility] 14:28:00 [facility] .GLOMERULAR FILTRATION 2021-05-30 [facility] RATE 14:28:00 [facility] CALCIUM LEVEL TOTAL 2021-05-30 [facility] 14:28:00 [facility] ALBUMIN LEVEL 2021-05-30 [facility] 14:28:00 [facility] ALKALINE PHOSPHATASE 2021-05-30 [facility] 14:28:00 [facility] ALANINE AMINOTRANSFERASE 2021-05-30 [facility] 14:28:00 [facility] ASPARTATE AMINOTRANSFERASE 2021-05-30 [facility] 14:28:00 [facility] TOTAL PROTEIN 2021-05-30 [facility] 14:28:00 [facility] FRACTIONATED BILIRUBIN 2021-05-30 [facility] 14:28:00 [facility] Results CBC 2021-05-30 Thang [facility] xas 14:28:00 [facility] MANUAL DIFFERENTIAL 2021-05-30 [facility] 14:28:00 [facility] COMPREHENSIVE METABOLIC 2021-05-30 [facility] PANEL 14:28:00 [facility] COMPLETE BLOOD COUNT W/ 2021-05-30 [facility] DIFFERENTIAL 14:28:00 [facility] MAGNESIUM LEVEL 2021-05-30 [facility] 14:28:00 [facility] PHOSPHORUS LEVEL 2021-05-30 [facility] 14:28:00 [facility] GLUCOSE LEVEL 2021-05-30 [facility] 14:28:00 [facility] BLOOD UREA NITROGEN 2021-05-30 [facility] 14:28:00 [facility] COMPREHENSIVE METABOLIC 2021-05-23 [facility] PANEL 14:42:00 [facility] COMPLETE BLOOD COUNT W/ 2021-05-23 [facility] DIFFERENTIAL 14:42:00 [facility] Center MAGNESIUM LEVEL 2021-05-23 [facility] xas 14:42:00 [facility] Center PHOSPHORUS LEVEL 2021-05-23 [facility] exas 14:42:00 [facility] Center GLUCOSE LEVEL 2021-05-23 [facility] xas 14:42:00 [facility] BLOOD UREA NITROGEN 2021-05-23 [facility] 14:42:00 [facility] ELECTROLYTE PANEL 2021-05-23 [facility] 14:42:00 [facility] SERUM CREATININE 2021-05-23 [facility]as 14:42:00 [facility] .GLOMERULAR FILTRATION 2021-05-23 [facility] RATE 14:42:00 [facility] CALCIUM LEVEL TOTAL 2021-05-23 [facility] 14:42:00 [facility] ALBUMIN LEVEL 2021-05-23 [facility] xas 14:42:00 [facility] ALKALINE PHOSPHATASE 2021-05-23 [facility] 14:42:00 [facility] ALANINE AMINOTRANSFERASE 2021-05-23 [facility] 14:42:00 [facility] ASPARTATE AMINOTRANSFERASE 2021-05-23 [facility] 14:42:00 [facility] TOTAL PROTEIN 2021-05-23 [facility] [place] 14:42:00 [facility] FRACTIONATED BILIRUBIN 2021-05-23 [facility] 14:42:00 [facility] Results CBC 2021-05-23 [facility] xa 14:42:00 [facility] MANUAL DIFFERENTIAL 2021-05-23 [facility] 14:42:00 [facility] FL MODIFIED BARIUM SWALLOW 2021-05-18 [facility] W SPEECH 15:57:[address] [facility] [address] HEAD/NECK SIMULATION WO 2021-05-11 [facility] CONTRAST (RO) 16:46:32 [facility] COVID-19 (SARS-COV-2) 2021-05-11 [facility] AS[facility]OMATIC 15:05:00 [facility] ORTHOPANTOGRAM 2021-05-06 [facility] 16:53:13 Vadim [facility] SANDBLASTING SUPERVISOR 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 2021-05-06 [facility] 15:58:10 [facility] ELECTROLYTE PANEL 2021-05-04 [facility] 17:10:00 [facility] BLOOD UREA NITROGEN 2021-05-04 [facility] 17:10:00 [facility] SERUM CREATININE 2021-05-04 [facility] ex 17:10:00 [facility] GLUCOSE, RANDOM 2021-05-04 [facility] xa 17:10:00 [facility] MAGNESIUM LEVEL 2021-05-04 [facility] xa 17:10:00 [facility] PHOSPHORUS LEVEL 2021-05-04 [facility] ex 17:10:00 [facility] CALCIUM LEVEL TOTAL 2021-05-04 [facility] 17:10:00 [facility] HEPATIC FUNCTION PANEL 2021-05-04 [facility] 17:10:00 [facility] VITAMIN D 25 HYDROXY LEVEL 2021-05-04 [facility] 17:10:00 [facility] SERUM CREATININE 2021-05-04 [facility] 17:10:00 [facility] .GLOMERULAR FILTRATION 2021-05-04 [facility] RATE 17:10:00 [facility] ALBUMIN LEVEL 2021-05-04 [facility] 17:10:00 [facility] ALKALINE PHOSPHATASE 2021-05-04 [facility] 17:10:00 [facility] ALANINE AMINOTRANSFERASE 2021-05-04 [facility] 17:10:00 [facility] ASPARTATE AMINOTRANSFERASE 2021-05-04 [facility] 17:10:00 [facility] TOTAL PROTEIN 2021-05-04 [facility] xa 17:10:00 [facility] FRACTIONATED BILIRUBIN 2021-05-04 [facility] 17:10:00 [facility] COVID-19 (SARS-COV-2) 2021-05-04 [facility] PCR ASYMPTOMATIC 16:23:00 [facility] COMPLETE BLOOD COUNT W/ 2021-05-03 R[facility] DIFFERENTIAL 14:26:00 [facility] COMPREHENSIVE METABOLIC 2021-05-03 [facility] 14:26:00 [facility] THYROID STIMULATING 2021-05-03 [facility] H[facility] 14:26:00 [facility] HEPATITIS C VIRUS ANTIBODY 2021-05-03 [facility] 14:26:00 [facility] FREE THYROXINE 2021-05-03 [facility] 14:26:00 [facility] Results CBC 2021-05-03 [facility] 14:26:00 [facility] MANUAL DIFFERENTIAL 2021-05-03 [facility] 14:26:00 [facility] GLUCOSE LEVEL 2021-05-03 [facility] xas 14:26:00 [facility] BLOOD UREA NITROGEN 2021-05-03 [facility] 14:26:00 [facility] ELECTROLYTE PANEL 2021-05-03 [facility] 14:26:00 [facility] SERUM CREATININE 2021-05-03 [facility] 14:26:00 [facility] .GLOMERULAR FILTRATION 2021-05-03 [facility] 14:26:00 [facility] CALCIUM LEVEL TOTAL 2021-05-03 [facility] 14:26:00 [facility] ALBUMIN LEVEL 2021-05-03 [facility] [place] 14:26:00 [facility] ALKALINE PHOSPHATASE 2021-05-03 [facility] 14:26:00 [facility] ALANINE AMINOTRANSFERASE 2021-05-03 [facility] 14:26:00 [facility] ASPARTATE AMINOTRANSFERASE 2021-05-03 [facility] 14:26:00 [facility] TOTAL PROTEIN 2021-05-03 [facility] [place] 14:26:00 [facility] FRACTIONATED BILIRUBIN 2021-05-03 [facility] 14:26:00 [facility] TMP HCVAB INTERP 2021-05-03 [facility]j [facility] exas 14:26:[address] [facility] [address] SOFT TISSUE NECK W 2021-05-03 [facility] CONTRAST 13:27:[address] [facility] [address] CHEST W CONTRAST 2021-05-03 [facility] [place] 13:27:54 [facility] POC CREATININE 2021-05-03 [facility] [place] 12[facility]56:00 [facility] OSI PET CT SKULL TO MID 2021-04-07 [facility] 18:24:00 [facility] PATHOLOGY OUTSIDE 2021-03-28 Korina Pastor [facility] INTERPRETATION 00:00:00 [facility] OSI CHEST 2021-03-24 [facility] [place] 18:24:00 [facility] Plan of Care Planned Activity Planned Date Details Comments Source Future Scheduled 2022-04-18 Hepatitis C screening [facility] Test 07:40:08 (procedure) [code = 306353531] Future Scheduled 2022-04-18 COLONOSCOPY SCREENING [facility] Test 07:40:08 [code = COLONOSCOPY SCREENING] Future Scheduled 2022-04-18 SHINGLES VACCINES ([address] [facility] [place] [place] Test 07:40:08 of 2) [code = SHINGLES VACCINES (1 of 2)] Future Scheduled 2022-04-18 COVID-19 VACCINE (4 - [facility] Test 07:40:08 Booster for Moderna series) [code = COVID-19 VACCINE (4 - Booster for Moderna series)] Future Scheduled 2022-04-18 INFLUENZA VACCINE Method [facility] Test 07:40:08 [code = INFLUENZA VACCINE] Future Scheduled 2022-04-18 HEPATITIS B VACCINES Met [facility] [place] [place] Test 07:40:08 (1 of 3 - 3-dose series) [code = HEPATITIS B VACCINES (1 of 3 - 3-dose series)] Future Scheduled 2022-04-18 65+ [facility] VACCINE (1 - PCV) [code = 65+ PNEUMOCOCCAL VACCINE (1 - PCV)] Future Scheduled 2022-04-17 COVID-19 Vaccination [facility] [place] Test 08:32:35 (4 - Booster) [code = Cancer COVID-19 Vaccination Center (4 - Booster)] Future Scheduled 2022-02-02 INFLUENZA VACCINE (#1) [facility] Test 00:00:00 [code = INFLUENZA Medical Ce nter VACCINE (#1)] Future Scheduled 2022-01-13 COVID-19 Vaccination [facility] [place] Test 06:36:37 (3 - Moderna risk MD Murry n Cancer series) [code = Center COVID-19 Vaccination (3 - Moderna risk series)] Future Scheduled 2022-01-[address] [facility] Test 00[facility]00 [facility] Center (procedure) [code = 01472725] Future Scheduled 2021-08-14 COVID-19 VACCINE (4 - [facility] Test 00:00:00 Booster for Moderna Medical Center series) [code = COVID-19 VACCINE (4 - Booster for Moderna series)] Future Scheduled 2021-06-[address] [facility] Test 00:00:00 (12+) [code = Medical Center DEPRESSION SCREENING (12+)] Future Scheduled 2021-06-04 FALLS RISK SCREENING [facility] Test 00:00:00 [code = FALLS RISK Medical C enter SCREENING] Future Scheduled 2021-06-04 Medicare IPPE (WELCOME [facility] Test 00:00:00 TO MEDICARE) [code = Medical Center Medicare IPPE (WELCOME TO MEDICARE)] Future Scheduled [address] [facility] Test 00:00:00 aneurysm screening Medical C enter (procedure) [code = 874357239] Future Scheduled 1999 SHINGLES VACCINES ([address] [facility] Test 00:00:00 of 2) [code = SHINGLES Medic al Center VACCINES (1 of 2)] Future Scheduled 1968-01-20 DTAP/TDAP/TD VACCINES [facility] Test 00:00:00 (1 - Tdap) [code = Medical C enter DTAP/TDAP/TD VACCINES (1 - Tdap)] Future Scheduled 1967 HEPATITIS C SCREENING [facility] Test 00:00:00 [code = HEPATITIS C Medical Center SCREENING] Future Scheduled 1959 DIABETIC EYE EXAM [facility] Test 00:00:00 [code = DIABETIC EYE Medical Center EXAM] Future Scheduled [address] Test 00:[facility]:00 examination Medical Center (regime/therapy) [code = 252131700] Future Scheduled 1959 Urine screening for [facility] Test 00:00:00 protein (procedure) Medical Center [code = 942778069] Future Scheduled 1955 PNEUMOCOCCAL 65+ Y[facility] Test 00:00:00 (1 - PCV) [code = Medical Ce nter PNEUMOCOCCAL 65+ YRS (1 - PCV)] Future Scheduled [address] [facility] Test 00:00:00 (combo) [code = CT Medical C enter Colonography (combo)] Future Scheduled [address] [facility] Test 00:00:00 malignant neoplasm of Medica l Center colon (procedure) [code = 741121351] Future Scheduled [address] [facility] Test 00:00:00 malignant neoplasm of Medica l Center colon (procedure) [code = 563642081] Future Scheduled [address] [facility] Test 00:00:00 malignant neoplasm of Medica l Center colon (procedure) [code = 319408268] Future Scheduled [address] [facility] Test 00:00:00 malignant neoplasm of Medica l Center colon (procedure) [code = 652816038] Future Scheduled 1949 Sigmoidoscopy [code = [facility] Test 00:00[facility]00 Sigmoidoscopy] Medical Cente r Encounters Start End Encounter Admission Attending Care Care Encounter Source Date/Time Date/Time Type Type Clinicians Facility Department ID 2022-04-13 Inpatient DOROTHY POLK MDA MDA [id number] 15:49:53 ENE patel 2022-04-03 Outpatient SYSTEMLOLITA MDA [id number] 13:11:05 CASSANDRA patel 2021-09-21 Outpatient SYSTEMLOLITA MDA [id number] 11:18:24 CASSANDRA patel 2021-09-20 Outpatient Bullard, Na STLMLC STLMLC [id number] 2 Common 09:33:02 [facility] 2021-09-19 Outpatient Bullard, Na STLMLC STLMLC [id number] 2 Common 16:18:04 [facility] 2021-07-09 Inpatient MARKUSTANYARALuis- LOLITA MCHUGH [id number] 15:00:36 Jeanmarie ASKEW 2021-06-29 Outpatient Bullard, Na STLMLC STLMLC [id number] 2 Common 11:54:04 [id number] [facility] 2021-06-29 Outpatient Bullard, Na STLMLC STLMLC [id number] 2 Common 11:30:38 [id number] [facility] 2021-06-29 Outpatient Bullard, Na STLMLC STLMLC [id number] 2 Common 11:28:27 [id number] [facility] 2021-06-29 Outpatient Bullard, Na STLMLC STLMLC [id number] 2 Common 11:24:06 [id number] [facility] 2021-04-13 Outpatient MATEUSZ, LOLITA MCHUGH [id number] 19:44:15 PROVIDER Chucky patel 2022-04-17 2022-04-17 Telephone Char, 1.2.840.1 [id number] [facility] 00:00:00 00:00:00 Anila 67836.1.1 ity of 3.412.2.7 [place] .3.983808 .8 Jeanmarie patel [facility] 2022-04-05 2022-04-16 [facility], 1.2.840.1 [id number] [facility] 06:21:00 12:11:00 Encounter Ene Singh 19583.1.1 it y of 3.412.2.7 [place] .3.440282 .8 Jeanmarie patel [facility] 2022-04-05 2022-04-16 Inpatient DOROTHY POLK MDA HN Surgery [id number] 06:21:00 12:11:00 ENE patel 2022-04-16 2022-04-16 Inpatient DOROTHY POLK MDA MDA [id number] 09:56:35 11:02:21 ENE Locke o amanda 2022-04-16 2022-04-16 Inpatient DOROTHY POLK MDA MDA [id number] MD 08:07:27 08:11:03 ENE patel 2022-04-15 2022-04-15 Orders Amari, 1.2.840.1 [id number] Univers 00:00:00 00:00:00 Only Eric So 01990.1.1 i ty inna 3.412.2.7 [place] .3.445852 .8 Jeanmarie patel [facility] 2022-04-14 2022-04-14 Inpatient DOROTHY POLK MDA MDA [id number] MD 07:45:08 08:53:35 ENE patel 2022-04-13 2022-04-13 Inpatient DOROTHY POLK MDA MDA [id number] 16:17:57 18:13:24 ENE patel 2022-04-13 2022-04-13 Inpatient DOROTHY PORTILLO MDA MDA [id number] 16:18:41 18:10:08 MCKAYLA Locke o amanda 2022-04-12 2022-04-12 Inpatient SLAVA WASHBURN MDA MDA [id number] 10:23:30 10:23:34 Chucky patel 2022-04-12 2022-04-12 Jesse Fiore, 1.2.840.1 [id number] Univers 00:00:00 00:00:00 Only Sravan 01021.1.1 ity inna Vogt 3.412.2.7 [place] .3.611527 .8 Jeanmarie patel [facility] 2022-04-11 2022-04-11 Inpatient DOROTHY POLK MDA MDA [id number] MD 17:32:19 17:46:12 ENE patel 2022-04-10 2022-04-10 Inpatient SLAVA WASHBURN MDA MDA [id number] 09:48:38 09:48:42 Chucky o amanda 2022-04-10 2022-04-10 Inpatient DOROTHY POLK MDA MDA [id number] MD 00:46:03 01:04:37 ENE Locke o amanda 2022-04-10 2022-04-10 Robert Nielsen 1.2.840.1 [id number] Univers 00:00:00 00:00:00 Only L 48750.1.1 ity of 3.412.2.7 [place] .3.519881 MD Jackson8 [facility] 2022-04-09 2022-04-09 Inpatient DOROTHY POLK LOLITA MCHUGH [id number] MD 21:02:00 21:25:22 ENE patel 2022-04-07 2022-04-07 Inpatient DOROTHY POLK LOLITA MDA [id number] MD 12:30:06 12:45:49 ENE patel 2022-04-07 2022-04-07 Ishaan Davis 1.2.840.1 [id number] Methodi 10:45:00 11:00:00 Consult Venkat Lowe 58883.1.[address] 3.430.2.7 Hospit a .3.225254 kelsey .8 2022-04-07 2022-04-07 Inpatient SLAVA WASHBURN LOLITA MDA [id number] 09:19:56 09:20:00 Chucky patel 2022-04-07 2022-04-07 Documentat José, 1.2.840.1 [id number] Univers 00:00:00 00:00:00 ion Leonid Sri 59549.1.1 ity of 3.412.2.7 [place] .3.664536 .8 [facility] 2022-04-07 2022-04-07 Documentat José, 1.2.840.1 [id number] Univers 00:00:00 00:00:00 ion Leonid Sri 68567.1.1 ity of 3.412.2.7 [place] .3.962606 MD Jackson8 [facility] 2022-04-06 2022-04-06 Inpatient SLAVA WASHBURN LOLITA MDA [id number] 15:11:45 15:11:49 Chucky patel 2022-04-05 2022-04-05 Girish Klein.2.840.1 [id number] Univers 08:00:00 19:31:00 Ene Singh 26439.1.1 ity of 3.412.2.7 [place] .3.393671 MD Jackson8 [facility] 2022-04-05 2022-04-05 Anesthesia Addie Arreguin 1.2.840.1 [id number] Univers 07:45:00 16:54:00 Event 49911.1.1 ity of 3.412.2.7 [place] .3.104872 MD Jackson8 [facility] 2022-04-05 2022-04-05 Travel 1.2.840.1 1.2.292.428 [id number] Methodi 00:00:00 00:00:[address] 3.430.2.7 0.2.7.3.698 Ho spita .3.450535 084.8 l .8 2022-04-05 2022-04-05 Telephone Martin Tolentino 1.2.840.1 [id number] Methodi 00:00:00 00:00:[address] 3.430.2.7 Hospit a .3.035795 l .8 2022-04-05 2022-04-05 Travel 1.2.840.1 1.2.909.317 [id number] Univers 00:00:00 00:00:00 30716.1.1 350.1.13.41 ity of 3.412.2.[place]3.698 [place] .3.059920 084.8 MD Jackson8 [facility] 2022-04-04 2022-04-04 Anesthesia Ramírez, 1.2.840.1 [id number] Univers 23:59:59 23:59:59 Event Kirit Bajwa 01009.1.1 it y of 3.412.2.7 [place] .3.169804 MD Jett [facility] 2022-04-04 2022-04-04 Outpatient DOROTHY WASHINGTON MDA MDA [id number] 12:06:09 23:59:00 DULCE patel 2022-04-04 2022-04-04 [facility], 1.2.840.1 [id number] [facility] 12:06:09 23:59:00 [facility] Dulce Singh 95221.1.1 i ty of 3.412.2.7 [place] .3.268698 MD Jackson8 [facility] 2022-04-04 2022-04-04 Outpatient DOROTHY DORAN [facility] [id number] 15:34:53 18:37:35 TRIPP grewal 2022-04-04 2022-04-04 Jerrod Doran 1.2.840.1 [id number] [facility] 14:30:00 18:37:35 Tripp 06300.1.1 ity of 3.412.2.7 [place] .3.979023 MD Jackson8 [facility] 2022-04-04 2022-04-04 Outpatient DOROTHY NEVILLE [facility] [id number] 11:50:03 11:56:47 SEBASTIEN patel 2022-04-04 2022-04-04 Clinical Sebastien Neville 1.2.840.1 [id number] [facility] 10:30:00 11:56:47 Support Lucas Carbajal 50674.1.1 ity of 3.412.2.7 [place] .3.599411 MD Jett [facility] 2022-04-04 2022-04-04 Slava Diamond 1.2.840.1 [id number] Univers 11:00:00 11:30:00 Rodolfo Romero 21161.1.1 i ty of ts 3.412.2.7 [place] .3.570222 MD Jackson8 [facility] 2022-04-04 2022-04-04 Travel 1.2.840.1 1.2.284.536 [id number] Univers 00:00:00 00:00:00 66554.1.1 350.1.13.41 ity of 3.412.2.[place].698 [place] .3.331943 084.8 MD Jett [facility] 2022-03-31 2022-03-31 Anesthesia Felix, 1.2.840.1 [id number] Univers 23:59:59 23:59:59 Event Dulce Singh 35670.1.1 ity of 3.412.2.7 [place] .3.026439 MD Jett [facility] 2022-03-31 2022-03-31 Anesthesia Aiden 1.2.840.1 [id number] Univers 09:16:19 09:16:19 Event Meg Mcintosh 48121.1.1 it y of 3.412.2.7 [place] .3.259984 MD Jett [facility] 2022-03-31 2022-03-31 Orders Hima Lopez 1.2.840.1 [id number] Univers 00:00:00 00:00:00 Only 74595.1.1 ity of 3.412.2.7 [place] .3.044426 MD Jett [facility] 2022-03-30 2022-03-30 Outpatient EASTON SILVA [facility] [id number] [place] 11:25:10 12:38:20 [facility] 2022-03-30 2022-03-30 Consult Easton Sumner 1.2.840.1 [id number] [facility] 11:00:00 12:38:20 Fareed Cannon 79497.1.1 ity of 3.412.2.7 [place] .3.308398 MD Jett [facility] 2022-03-30 2022-03-30 Travel 1.2.840.1 1.2.611.476 [id number] Univers 00:00:00 00:00:00 74956.1.1 350.1.13.41 ity of 3.412.2.7 [place]3.698 [place] .3.632958 084.8 MD Jett [facility] 2022-03-30 2022-03-30 Telephone Aneesh Connolly2.840.1 [id number] Univers 00:00:00 00:00:00 Crista Mcintosh 86016.1.1 ity of 3.412.2.7 [place] .3.321356 .8 [facility] 2022-03-28 2022-03-28 Outpatient DOROTHY WASHINGTON MDA MDA [id number] MD 14:00:00 23:59:00 DULCE patel 2022-03-28 2022-03-28 [facility] Felix 1.2.840.1 [id number] [facility] 14:00:00 23:59:00 Encounter Dulce Singh 07449.1.1 i ty of 3.412.2.7 [place] .3.640474 .8 Jeanmarie patel [facility] 2022-03-28 2022-03-28 Outpatient DOROTHY POLK MDA MDA [id number] [place] 08:38:41 13:59:00 ENE patel 2022-03-28 2022-03-28 [facility] Jam 1.2.840.1 [id number] [facility] 08:38:41 13:59:00 Encounter Ene Singh 84655.1.1 it y of 3.412.2.7 [place] .3.727367 .8 Jeanmarie patel [facility] 2022-03-28 2022-03-28 Slava Diamond 1.2.840.1 [id number] Univers 12:00:00 13:21:19 Rodolfo Romero 61221.1.1 i ty of ts 3.412.2.7 [place] .3.399126 .8 Jeanmarie patel [facility] 2022-03-28 2022-03-28 Outpatient SLAVA WASHBURN MDA MDA [id number] 10:26:02 13:21:19 Chucky patel 2022-03-28 2022-03-28 Consult Sebastien Neville 1.2.840.1 [id number] Univers 11:15:00 12:00:00 Hima Lopez 07921.1.1 it y of 3.412.2.7 [place] .3.794236 .8 Anderso [facility] 2022-03-28 2022-03-28 Outpatient DOROTHY NEVILLE LOLITA MDA [id number] 10:26:19 10:26:19 SEBASTIEN Chuckyreginald patel 2022-03-28 2022-03-28 Ancillary Jam, 1.2.840.1 [id number] 1097 [id number] Univers 07:00:00 08:25:00 Procedure Ene Singh 16302.1.1 it y of 3.412.2.7 [place] .3.647003 MD [facility]22-03-28 Outpatient DOROTHY POLK LOLITA MDA [id number] 07:03:05 07:03:05 ENE Chuckyreginald patel 2022-03-28 2022-03-28 Telephone Padmini, 1.2.840.1 [id number] 2100 [id number] Methodi 00:00:00 00:00:00 Venkat Lowe 92559.1.[address] 3.430.2.7 Hospit a .3.250029 l .8 2022-03-28 2022-03-28 Travel 1.2.840.1 1.2.104.971 1186 [id number] Univers 00:00:00 00:00:00 51599.1.1 350.1.13.41 ity of 3.412.2.7 [place].3.698 [place] .3.897657 084.8 MD Jett [facility] 2022-03-13 2022-03-13 (TEL) STLMLC STLMLC [id number] Co mmon 00:00:00 00:00:00 [facility] 2022-03-10 2022-03-10 (TEL) STLMLC STLMLC [id number] Co mmon 00:00:00 00:00:00 [facility] 2022-03-08 2022-03-08 Outpatient DOROTHY SUAREZ LOLITA MDA [id number] 11:16:13 11:36:56 William patel 2022-03-07 2022-03-07 OFFICE STLMLC STLMLC [id number] Co mmon 00:00:00 00:00:00 VISIT Spirit [facility] PT - CHI LEVEL 4 [facility] 2022-03-07 2022-03-07 Orders Jamin, 1.2.840.1 [id number] Univers 00:00:00 00:00:00 Only Sebastien 83877.1.1 ity of 3.412.2.7 [place] .3.447500 MD Jackson8 [facility] 2022-03-06 2022-03-06 Orders Jamin, 1.2.840.1 [id number] 3582 Univers 00:00:00 00:00:00 Only Sebastien 15065.1.1 ity of 3.412.2.7 [place] .3.124519 MD Jett [facility] 2022-03-03 2022-03-03 (TEL) STLMLC STLMLC [id number] Co mmon 00:00:00 00:00:00 Spirit [facility] 2022-03-02 2022-03-02 Outpatient DOROTHY POLK MDA [facility] [id number] 10:15:00 23:59:00 ENE patel 2022-03-02 2022-03-02 [facility] Ene Polk 1.2.840.1 [id number] [facility] 10:15:00 23:59:00 Encounter Crista Connolly 63832.1.1 ity of 3.412.2.7 [place] .3.425422 MD Jett [facility] 2022-03-02 2022-03-02 Travel 1.2.840.1 1.2.836.801 2766 [id number] Univers 00:00:00 00:00:00 48431.1.1 350.1.13.41 ity of 3.412.2.7 [place].7.3.698 [place] .3.711458 084.8 MD Jackson8 [facility] 2022-02-27 2022-02-27 Prep for Jamin, 1.2.840.1 [id number] [id number] Univers 00:00:00 00:00:00 Surgery Sebastien 61881.1.1 ity of 3.412.2.7 [place] .3.489349 .8 [facility] 2022-02-26 2022-02-26 Refangelita De La Rosa, 1.2.840.1 [id number] Univers 00:00:00 00:00:00 Alexandra 92538.1.1 ity of 3.412.2.7 [place] .3.394147 MD Jackson8 [facility] 2022-02-24 2022-02-24 Outpatient SEYMOUR [facility] LOLITA [id number] 11:12:04 11:12:04 KOSTA Locke o n 2022-02-24 2022-02-24 [facility], 1.2.840.1 [id number] [facility] 10:45:00 11:00:00 Procedure Kosta 13758.1.1 it y of 3.412.2.7 [place] .3.925880 MD Jackson8 [facility] 2022-02-24 2022-02-24 Travel 1.2.840.1 1.2.906.425 3979 [id number] [facility] 00:00:00 00:00:00 55265.1.1 350.1.13.41 ity of 3.412.2.7 2.[place]7.3.698 [place] .3.589347 084.8 .8 [facility] 2022-02-23 2022-02-23 Outpatient SEYMOUR [facility] LOLITA [id number] 12:17:24 23:59:00 KOSTA Scanloners o n 2022-02-23 2022-02-23 [facility], 1.2.840.1 [id number] [facility] 12:17:24 23:59:00 Encounter Kosta 22002.1.1 it y of 3.412.2.7 [place] .3.157768 MD Jackson8 [facility] 2022-02-23 2022-02-23 Outpatient SLAVA WASHBURN MDA, MDA [id number] 09:00:00 12:16:00 Chucky o amanda 2022-02-23 2022-02-23 [facility] 1.2.840.1 [id number] 10 [id number] Univers 09:00:00 12:16:00 Encounter Nick 00856.1.1 it y of 3.412.2.7 [place] .3.172493 MD Jett [facility] 2022-02-23 2022-02-23 Follow-Up Seymour 1.2.840.1 [id number] Univers 10:00:00 12:12:21 Kosta 57850.1.1 ity of 3.412.2.7 [place] .3.261395 MD Jett [facility] 2022-02-23 2022-02-23 Outpatient EL LOLITA AHUJA [facility] [id number] 09:50:40 12:12:21 KOSTA Locke [facility] 2022-02-23 2022-02-23 Telephone Yamilex Fox 1.2.840.1 [id number] Univers 00:00:00 00:00:00 T 20981.1.1 ity of 3.412.2.7 [place] .3.331159 MD Jett [facility] 2022-02-23 2022-02-23 Travel 1.2.840.1 1.2.410.597 1513 [id number] Univers 00:00:00 00:00:00 72178.1.1 350.1.13.41 ity of 3.412.2.7 2.[place].7.3.698 [place] .3.546539 084.8 MD Jett [facility] 2022-02-22 2022-02-22 Orders Jamin, 1.2.840.1 [id number] Univers 00:00:00 00:00:00 Only Sebastien 44825.1.1 ity of 3.412.2.7 [place] .3.293521 MD Jett [facility] 2022-02-21 2022-02-21 (TEL) STLMLC STLMLC [id number] Co mmon 00:00:00 00:00:00 [facility] 2022-02-21 2022-02-21 Telephone Davis, 1.2.840.1 [id number] 2100 [id number] Methodi 00:00:00 00:00:00 Venkat Lowe 26698.1.[address] 3.430.2.7 Hospit a .3.797755 l .8 2022-02-20 2022-02-20 (TEL) STLMLC STLM [id number] Co mmon 00:00:00 00:00:00 Spirit [facility] 2022-02-02 2022-02-02 Prosper Harleen Slava Nick 1.2.840.1 101 [id number] [facility] 10:30:00 11:00:00 Link Schaffer 64222.1.1 ity of 3.412.2.7 [place] .3.002499 MD Jackson8 [facility] 2022-02-02 2022-02-02 Outpatient SLAVA WASHBURN [facility] [id number] 10:39:05 10:39:05 [facility] 2022-02-02 2022-02-02 Outpatient PADMINI [facility] [id number] [place] 00:00:00 00:00:00 VENKAT [address] 2022-02-02 2022-02-02 Travel 1.2.840.1 1.2.550.047 4359 582179 Methodi 00:00:00 00:00:[address] 3.430.2.7 0.2.7.3.698 [facility] .[facility] 084.8 l .8 2022-02-02 2022-02-02 Documentat Fermin, 1.2.840.1 [id number] 1 [id number] [facility] 00:00:00 00:00:00 ion Adele 09641.1.1 ity of 3.412.2.7 [place] .3.118440 MD Jett [facility] 2022-02-02 2022-02-02 Jesse Schaffer 1.2.840.1 [id number] [facility] 00:00:00 00:00:00 Only Link 36717.1.1 ity of 3.412.2.7 [place] .3.902450 MD Jackson8 [facility] 2022-02-01 2022-02-01 Ancillary Seymour, 1.2.840.1 [id number] 10 [id number] [facility] 11:00:00 12:25:00 Procedure Kosta 12342.1.1 it y of 3.412.2.7 [place] .3.718802 MD Jackson8 [facility] 2022-02-01 2022-02-01 Outpatient DOROTHY SEYMOUR LOLITA MDA [id number] 10:44:10 10:44:10 KOSTA Locke [facility] 2022-02-01 2022-02-01 Travel 1.2.840.1 1.2.806.616 0868 [id number] [facility] 00:00:00 00:00:00 20121.1.1 350.1.13.41 ity of 3.412.2.7 2.[place].7.3.698 [place] .3.711701 084.8 MD Jett [facility] 2022-01-30 2022-01-30 Travel 1.2.840.1 1.2.545.796 0550 265546 Methodi 00:00:00 00:00:[address] 3.430.2.7 0.2.7.3.698 Ho spita .3.783043 084.8 l .8 2022-01-30 2022-01-30 Outpatient PADMINI [facility] [id number] [place] 00:00:00 00:00:00 VENKAT Ferraro [facility] 2022-01-24 2022-01-24 Office Padmini 1.2.840.1 [id number] 926640 4326 Methodi 09:00:00 15:05:49 Visit Venkat Lowe 45883.1.[address] 3.430.2.7 Hospit a .3.081418 l .8 2022-01-24 2022-01-24 Travel 1.2.840.1 1.2.077.223 1091 619413 Methodi 00:00:00 00:00:[address] 3.430.2.7 0.2.7.3.698 spita .3.232731 084.8 l .8 2022-01-24 2022-01-24 Outpatient PADMINI [facility] [id number] 00:00:00 00:00:00 VENKAT [address] 2022-01-20 2022-01-20 Outpatient DOROTHY POLK MDA MDA [id number] 10:15:01 23:59:00 ENE patel 2022-01-20 2022-01-20 [facility] Jam, 1.2.840.1 [id number] [facility] 10:15:01 23:59:00 Encounter Ene Singh 46786.1.1 it y of 3.412.2.7 [place] .3.159170 .8 [facility] 2022-01-20 2022-01-20 Outpatient SLAVA WASHBURN MDA, MDA [id number] 06:48:08 10:14:00 Chucky patel 2022-01-20 2022-01-20 [facility] Slava Ariza 1.2.840.1 [id number] 10 [id number] [facility] 06:48:08 10:14:00 Encounter Nick 40088.1.1 it y of 3.412.2.7 [place] .3.833276 MD Jackson8 [facility] 2022-01-20 2022-01-20 [facility] Slava Ariza 1.2.840.1 [id number] [facility] 08:30:00 09:34:14 Visit Liliana Martin 31655.1.1 ity of 3.412.2.7 [place] .3.760356 MD Jackson8 [facility] 2022-01-20 2022-01-20 Outpatient SLAVA WASHBURN MDA, MDA [id number] 07:51:32 09:34:14 Chuckyreginald patel 2022-01-20 2022-01-20 Outpatient SLAVA WASHBURN MDA, MDA [id number] 06:47:00 06:47:00 Chucky patel 2022-01-20 2022-01-20 [facility] Slava Ariza 1.2.840.1 [id number] [facility] 06:47:00 06:47:00 Encounter Nick 57619.1.1 it y of 3.412.2.7 [place] .3.482680 MD Jacskon8 [facility] 2022-01-20 2022-01-20 Travel 1.2.840.1 1.2.316.431 9218 670666 Methodi 00:00:00 00:00:[address] 3.430.2.7 0.2.7.3.698 Ho spita .3.921671 084.8 l .8 2022-01-20 2022-01-20 Travel 1.2.840.1 1.2.469.681 4057 [id number] Univers 00:00:00 00:00:00 38722.1.1 350.1.13.41 ity of 3.412.2.7 2.[place]7.3.698 [place] .3.116596 084.8 .8 [facility] 2022-01-18 2022-01-18 Orders Jamin, 1.2.840.1 [id number] Univers 00:00:00 00:00:00 Only Sebastien 64857.1.1 ity of 3.412.2.7 [place] .3.603833 MD Jackson8 [facility] 2022-01-13 2022-01-15 [facility] [id number] [facility] 22:45:00 16:42:00 [facility] 2022-01-15 Inpatient ER [facility] Ot[facility] 20 [id number] [facility] 22:45:00 16:42:00 o 2022-01-13 2022-01-15 [facility] [id number] 22:45:00 16:42:00 Encounter Sebas Pelletier Yun Galarza [facility] 2022-01-14 2022-01-14 Orders [facility] [id number] 00:00:00 00:00:[address] [facility] 2022-01-14 2022-01-14 Orders [facility] [id number] 00:00:00 00:00:[address] [facility] 2022-01-13 2022-01-13 Travel [facility] [id number] [facility] 00[facility]:00 [facility] 2022-01-13 2022-01-13 Travel [facility] [id number] [facility] 00:[facility]:00 [facility] 2022-01-12 2022-01-12 [facility] SLAVA WASHBURN 1.2.840.1 [id number] 12:58:06 23:59:00 Encounter 71206.1.1 An derso 3.412.2.7 n .3.744092 .8 2022-01-12 2022-01-12 [facility] Slava Ariza Nick 1.2.840.1 [id number] [id number] [facility] 12:58:06 23:59:00 Encounter Mj Azevedo 53080.1.1 ity of 3.412.2.7 [place] .3.108981 .8 [facility] 2022-01-12 2022-01-12 Follow-Up DOROTHY Ahuja 1.2.840.1 [id number] 10 [id number] [facility] 11:30:00 14:13:47 Kosta 09347.1.1 ity of 3.412.2.7 [place] .3.277666 .8 [facility] 2022-01-12 2022-01-12 Follow-Up Seymour 1.2.840.1 [id number] 10 [id number] [facility] 11:30:00 14:13:47 Kosta 00517.1.1 ity of 3.412.2.7 [place] .3.182121 .8 [facility] 2022-01-12 2022-01-12 [facility] SLAVA WASHBURN 1.2.840.1 [id number] 10 [id number] [place] 10:16:05 12:57:00 Encounter 51991.1.1 An derso 3.412.2.7 n .3.815269 .8 2022-01-12 2022-01-12 [facility] Slava Ariza 1.2.840.1 [id number] [id number] [facility] 10:16:05 12:57:00 Encounter Sarah Rudd 04513.1.1 ity of 3.412.2.7 [place] .3.480705 .8 [facility] 2022-01-12 2022-01-12 [facility], 1.2.840.1 [id number] 119 [id number] [place] 09:28:29 10:15:00 Encounter KOSTA 00106.1.1 An derso 3.412.2.7 n .3.242779 .8 2022-01-12 2022-01-12 [facility], 1.2.840.1 [id number] [facility] 09:28:29 10:15:00 Encounter Kosta 16600.1.1 it y of 3.412.2.7 [place] .3.928036 MD Jackson8 [facility] 2022-01-12 2022-01-12 Orders Rodríguez, 1.2.840.1 [id number] Univers 00:00:00 00:00:00 Only Richard 12233.1.1 ity of Van 3.412.2.7 [place] .3.618176 MD Jackson8 [facility] 2022-01-12 2022-01-12 Telephone Alexander, 1.2.840.1 [id number] [id number] Univers 00:00:00 00:00:00 Talia Mcintosh 24132.1.1 ity of 3.412.2.7 [place] .3.104288 .8 [facility] 2022-01-12 2022-01-12 Travel 1.2.840.1 1.2.897.871 3367 [id number] Univers 00:00:00 00:00:00 97353.1.1 350.1.13.41 ity of 3.412.2.7 2.2.7.3.698 [place] .3.617445 084.8 MD Jett [facility] 2022-01-12 2022-01-12 Orders Rodríguez, 1.2.840.1 [id number] Univers 00:00:00 00:00:00 Only Richard 01009.1.1 ity of Van 3.412.2.7 [place] .3.045830 MD Jett [facility] 2022-01-12 2022-01-12 Ishaan Munoz, 1.2.840.1 [id number] Univers 00:00:00 00:00:00 Talia Mcintosh 89112.1.1 ity of 3.412.2.7 [place] .3.425289 MD Jett [facility] 2022-01-12 2022-01-12 Travel 1.2.840.1 1.2.097.089 6659 [id number] Univers 00:00:00 00:00:00 98809.1.1 350.1.13.41 ity of 3.412.2.7 2.2.7.3.698 [place] .3.516639 084.8 MD Jett [facility] 2022-01-05 2022-01-05 Eliane Polk 1.2.840.1 [id number] 4159 Univers 00:00:00 00:00:00 Ene Singh 90146.1.1 ity of 3.412.2.7 [place] .3.309524 MD Jett [facility] 2022-01-05 2022-01-05 Eliane Polk 1.2.840.1 [id number] 2948 Univers 00:00:00 00:00:00 Ene Singh 04272.1.1 ity of 3.412.2.7 [place] .3.701564Steven Jackson8 [facility] 2021-12-30 2021-12-30 [facility] Ene Roberts 1.2.840.1 [id number] Univers 08:57:19 23:59:00 Encounter Kassi Harrisine Nirmal 33739.1.1 ity of 3.412.2.7 [place] .3.242324 MD Jett [facility] 2021-12-30 2021-12-30 [facility] Ene Polk 1.2.840.1 [id number] Univers 08:57:19 23:59:00 Encounter Steven Sara Kinney 16844.1.1 ity of 3.412.2.7 [place] .3.669151 MD Jett [facility] 2021-12-30 2021-12-30 Sumit Portillo 1.2.840.1 [id number] 1095 [id number] Univers 00:00:00 00:00:00 Management Nevin Singh 31327.1.1 ity of 3.412.2.7 [place] .3.331854 MD Jett [facility] 2021-12-30 2021-12-30 Travel 1.2.840.1 1.2.776.440 5503 [id number] Univers 00:00:00 00:00:00 50912.1.1 350.1.13.41 ity of 3.412.2.7 2.2.7.3.698 [place] .3.147701 084Manuel8 MD Jett [facility] 2021-12-30 2021-12-30 Sumit Portillo 1.2.840.1 [id number] 1095 [id number] Univers 00:00:00 00:00:00 Management Nevin Singh 50308.1.1 ity of 3.412.2.7 [place] .3.656739 MD Jett [facility] 2021-12-30 2021-12-30 Travel 1.2.840.1 1.2.405.836 9872 [id number] Univers 00:00:00 00:00:00 75810.1.1 350.1.13.41 ity of 3.412.2.7 2.[place].7.3.698 [place] .3.863265 084.8 MD Jackson8 [facility] 2021-12-29 2021-12-29 Sumit Portillo, 1.2.840.1 [id number] 1095 [id number] Univers 00:00:00 00:00:00 Management Nevin Singh 67281.1.1 ity of 3.412.2.7 [place] .3.032582 MD Jackson8 [facility] 2021-12-29 2021-12-29 Sumit Portillo, 1.2.840.1 [id number] 1095 [id number] Univers 00:00:00 00:00:00 Management Nevin Singh 78604.1.1 ity of 3.412.2.7 [place] .3.178390 MD Jackson8 [facility] 2021-12-28 2021-12-28 [facility], 1.2.840.1 [id number] 049 [id number] Univers 17:46:51 23:59:00 Encounter Kosta 40956.1.1 it y of 3.412.2.7 [place] .3.636861 MD Jackson8 [facility] 2021-12-28 2021-12-28 [facility], 1.2.840.1 [id number] Univers 17:46:51 23:59:00 Encounter Kosta 71013.1.1 it y of 3.412.2.7 [place] .3.005925 MD Jackson8 [facility] 2021-12-28 2021-12-28 [facility] 1.2.840.1 [id number] Univers 12:26:58 17:45:00 Encounter Bird Lawton 95051.1.1 ity of 3.412.2.7 [place] .3.169709 MD Jett [facility] 2021-12-28 2021-12-28 [facility] 1.2.840.1 [id number] Univers 12:26:58 17:45:00 Encounter Bird Lawton T 96434.1.1 ity of 3.412.2.7 [place] .3.776174 MD Jett [facility] 2021-12-28 2021-12-28 Outpatient DOROTHY AHUJA MDA [facility] [id number] 15:17:34 15:17:34 KOSTA Chuckyreginald patel 2021-12-28 2021-12-28 Case Darrick, 1.2.840.1 [id number] 1095 [id number] Univers 00:00:00 00:00:00 Management Nevin Singh 91092.1.1 ity of 3.412.2.7 [place] .3.147169 MD Jett [facility] 2021-12-28 2021-12-28 Case Darrick, 1.2.840.1 [id number] 1095 [id number] Univers 00:00:00 00:00:00 Management Nevin Singh 36620.1.1 ity of 3.412.2.7 [place] .3.763603 MD Jett [facility] 2021-12-28 2021-12-28 Travel 1.2.840.1 1.2.504.470 4543 [id number] Univers 00:00:00 00:00:00 26891.1.1 350.1.13.41 ity of 3.412.2.7 2.2.7.3.698 [place] .3.007494 084.8 MD Jett [facility] 2021-12-28 2021-12-28 Case Darrick, 1.2.840.1 [id number] 1095 [id number] Univers 00:00:00 00:00:00 Management Nevin Singh 61051.1.1 ity of 3.412.2.7 [place] .3.655319 MD Jett [facility] 2021-12-28 2021-12-28 Case Darrick, 1.2.840.1 [id number] 1095 [id number] Univers 00:00:00 00:00:00 Management Nevin Singh 11699.1.1 ity of 3.412.2.7 [place] .3.445163 MD Jett [facility] 2021-12-28 2021-12-28 Travel 1.2.840.1 1.2.409.823 7850 [id number] Univers 00:00:00 00:00:00 75962.1.1 350.1.13.41 ity of 3.412.2.7 2.2.7.3.698 [place] .3.872714 084.8 MD Jackson8 [facility] 2021-12-27 2021-12-27 Jesse Ahuja 1.2.840.1 [id number] 1095 [id number] Univers 00:00:00 00:00:00 Only Kosta 93529.1.1 ity of 3.412.2.7 [place] .3.161875 MD Jackson8 [facility] 2021-12-27 2021-12-27 Jesse Ahuja 1.2.840.1 [id number] 1095 [id number] Univers 00:00:00 00:00:00 Only Kosta 23497.1.1 ity of 3.412.2.7 [place] .3.475608 MD Jett [facility] 2021-12-27 2021-12-27 Documentat Leobardo Edwards 1.2.840.1 [id number] 10 [id number] Univers 00:00:00 00:00:00 ion Vicente Wilburn 09308.1.1 ity of 3.412.2.7 [place] .3.220049 MD Jackson8 [facility] 2021-12-27 2021-12-27 Sumit Portillo 1.2.840.1 [id number] 1095 [id number] Univers 00:00:00 00:00:00 Management Nevin Singh 50140.1.1 ity of 3.412.2.7 [place] .3.761911 MD Jackson8 [facility] 2021-12-27 2021-12-27 Jesse Ahuja 1.2.840.1 [id number] 1095 [id number] Univers 00:00:00 00:00:00 Only Kosta 18484.1.1 ity of 3.412.2.7 [place] .3.659535 MD Jett [facility] 2021-12-27 2021-12-27 Jesse Ahuja, 1.2.840.1 [id number] 1095 [id number] Univers 00:00:00 00:00:00 Only Kosta 63461.1.1 ity of 3.412.2.7 [place] .3.425826 MD Jett [facility] 2021-12-27 2021-12-27 Documentat Leobardo Edwards 1.2.840.1 [id number] 10 [id number] Univers 00:00:00 00:00:00 ion Vicente Wilburn 33022.1.1 ity of 3.412.2.7 [place] .3.163176 MD Jett [facility] 2021-12-27 2021-12-27 Sumit Portillo 1.2.840.1 [id number] 1095 [id number] Univers 00:00:00 00:00:00 Management Nevin Sinhg 18479.1.1 ity of 3.412.2.7 [place] .3.810677 MD Jett [facility] 2021-12-26 2021-12-26 Sumit Portillo 1.2.840.1 [id number] 1095 [id number] Univers 00:00:00 00:00:00 Management Nevin Singh 30874.1.1 ity of 3.412.2.7 [place] .3.064786 MD Jett [facility] 2021-12-26 2021-12-26 Jesse Ahuja, 1.2.840.1 [id number] 1095 [id number] Univers 00:00:00 00:00:00 Only Kosta 63928.1.1 ity of 3.412.2.7 [place] .3.154157 MD Jett [facility] 2021-12-26 2021-12-26 Jesse Ahuja 1.2.840.1 [id number] [id number] Univers 00:00:00 00:00:00 Only Kosta 73437.1.1 ity of 3.412.2.7 [place] .3.209617 MD Jett [facility] 2021-12-26 2021-12-26 Sumit Portillo 1.2.840.1 [id number] 1095 [id number] Univers 00:00:00 00:00:00 Management Nevin Singh 35391.1.1 ity of 3.412.2.7 [place] .3.235901 MD Jackson8 [facility] 2021-12-26 2021-12-26 Orders Seymour, 1.2.840.1 [id number] [id number] [facility] 00:00:00 00:00:00 Only Kosta 23619.1.1 ity of 3.412.2.7 [place] .3.677634 MD Jackson8 [facility] 2021-12-26 2021-12-26 Orders N[place]umb[place], 1.2.840.1 [id number] [id number] Univers 00:00:00 00:00:00 Only Kosta 95863.1.1 ity of 3.412.2.7 [place] .3.339762 MD Jett [facility] 2021-12-22 2021-12-22 Consult Jose Luis Hay 1.2.840.1 [id number] Univers 13:00:00 14:19:52 Kosta Ahuja 22531.1.1 ity of 3.412.2.7 [place] .3.118127 MD Jett [facility] 2021-12-22 2021-12-22 Consult Jose Luis Roe 1.2.840.1 [id number] Univers 13:00:00 14:19:52 Kosta Ahuja 99723.1.1 ity of 3.412.2.7 [place] .3.001889 MD Jett [facility] 2021-12-22 2021-12-22 Travel 1.2.840.1 1.2.972.347 7997 [id number] [facility] 00:00:00 00:00:00 00304.1.1 350.1.13.41 ity of 3.412.2.[place]3.698 [place] .3.1163[place] 084.8 MD Jett [facility] 2021-12-22 2021-12-22 Travel 1.2.840.1 1.2.149.510 9913 [id number] [facility] 00:00:00 00:00:00 14103.1.1 350.1.13.41 ity of 3.412.2.[place].3.698 [place] .3.160760 084.8 MD Jett [facility] 2021-12-19 2021-12-19 Orders Satnam, 1.2.840.1 [id number] Univers 00:00:00 00:00:00 Only Jose Luis S 41993.1.1 ity of 3.412.2.7 [place] .3.664934 MD Jackson8 [facility] 2021-12-19 2021-12-19 Orders Satnam, 1.2.840.1 [id number] Univers 00:00:00 00:00:00 Only Jose Luis S 86934.1.1 ity of 3.412.2.7 [place] .3.691191 MD [facility]ett [facility] 2021-12-16 2021-12-16 Hospital Jam, 1.2.840.1 [id number] Univers 07:28:07 23:59:00 Encounter Ene Singh 55589.1.1 it y of 3.412.2.7 [place] .3.038932 MD [facility]ett [facility] 2021-12-16 2021-12-16 Hospital DOROTHY Polk, 1.2.840.1 [id number] Univers 07:28:07 23:59:00 Encounter Ene Singh 12098.1.1 it y of 3.412.2.7 [place] .3.167632 MD [facility]ett [facility] 2021-12-16 2021-12-16 Ancillary Jam, 1.2.840.1 [id number] 1093 [id number] Univers 06:05:00 07:30:00 Procedure Ene Singh 24810.1.1 it y of 3.412.2.7 [place] .3.303426 MD Jett [facility] 2021-12-16 2021-12-16 Ancillary DOROTHY Polk, 1.2.840.1 [id number] [id number] Univers 06:05:00 07:30:00 Ean Singh 12693.1.1 it y of 3.412.2.7 [place] .3.296460 MD [facility]ett [facility] 2021-12-16 2021-12-16 Jesse Naik, 1.2.840.1 [id number] 1094 [id number] Univers 00:00:00 00:00:00 Only Clement Rivera 18966.1.1 it y of 3.412.2.7 [place] .3.154795 MD Jett [facility] 2021-12-16 2021-12-16 Travel 1.2.840.1 1.2.492.455 3106 [id number] Univers 00:00:00 00:00:00 85766.1.1 350.1.13.41 ity of 3.412.2.[place].3.698 [place] .3.245[place] 084Maliha [facility]ett [facility] 2021-12-16 2021-12-16 Jesse Naik, 1.2.840.1 [id number] 1094 [id number] Univers 00:00:00 00:00:00 Only Clement Rivera 34241.1.1 it y of 3.412.2.7 [place] .3.652972 MD Jett [facility] 2021-12-16 2021-12-16 Travel 1.2.840.1 1.2.513.510 6068 [id number] Univers 00:00:00 00:00:00 28783.1.1 350.1.13.41 ity of 3.412.2.[place]7.3.698 [place] .3.4088[place] 084Maliha [facility] 2021-12-12 2021-12-12 Eliane Adame, 1.2.840.1 [id number] Univers 00:00:00 00:00:00 Cintia 55948.1.1 ity of 3.412.2.7 [place] .3.524791 MD Jett [facility] 2021-12-12 2021-12-12 Eliane Adame, 1.2.840.1 [id number] Univers 00:00:00 00:00:00 Cintia 40198.1.1 ity of 3.412.2.7 [place] .3.713967 MD Jackson8 [facility] 2021-12-09 2021-12-09 [facility] Ene Polk 1.2.840.1 [id number] Univers 13:42:08 23:59:00 Encounter Kita Campos 16866.1.1 ity of 3.412.2.7 [place] .3.448720 MD [facility] 2021-12-09 2021-12-09 [facility] Ene Roberts 1.2.840.1 [id number] Univers 13:42:08 23:59:00 Encounter Kita Campos 36488.1.1 ity of 3.412.2.7 [place] .3.268868 MD [facility] 2021-12-09 2021-12-09 Clinical Kong Prieto 1.2.840.1 1 [id number] Univers 09:30:00 10:00:00 Support Syeda Cole 30500.1.1 ity of 3.412.2.7 [place] .3.922205 MD [facility] 2021-12-09 2021-12-09 Clinical Kong Daly 1.2.840.1 1 [id number] Univers 09:30:00 10:00:00 Support Syeda Cole 76004.1.1 ity of 3.412.2.7 [place] .3.863591 MD [facility] 2021-12-09 2021-12-09 Ancillary Cadnace 1.2.840.1 [id number] Univers 07:45:00 08:00:00 Procedure Kong patel 71109.1.1 ity of 3.412.2.7 [place] .3.398399 MD [facility] 2021-12-09 2021-12-09 Ancillary DOROTHY Maria 1.2.840.1 [id number] Univers 07:45:00 08:00:00 Kong Sutherland 26466.1.1 ity of 3.412.2.7 [place] .3.960597 MD [facility] 2021-12-09 2021-12-09 Orders Veronica, 1.2.840.1 [id number] 1094 [id number] Univers 00:00:00 00:00:00 Only Liliana 93250.1.1 ity of 3.412.2.7 [place] .3.712897 MD [facility] 2021-12-09 2021-12-09 Travel 1.2.840.1 1.2.659.800 4768 [id number] Univers 00:00:00 00:00:00 05674.1.1 350.1.13.41 ity of 3.412.2.7 [place].3.698 [place] .3.8523[place] 084.8 MD [facility] 2021-12-09 2021-12-09 Orders Veronica, 1.2.840.1 [id number] [id number] Univers 00:00:00 00:00:00 Only Liliana 78233.1.1 ity of 3.412.2.7 [place] .3.373412 MD [facility] 2021-12-09 2021-12-09 Travel 1.2.840.1 1.2.351.428 9432 [id number] Univers 00:00:00 00:00:00 09859.1.1 350.1.13.41 ity of 3.412.2.7 [place].3.698 [place] .[place].727[place] 084.8 MD [facility] 2021-11-24 2021-11-24 Outpatient SLAVA [facility] 1093 [id number] 16:07:20 16:07:20 Chuckyreginald patel 2021-11-21 2021-11-21 Eliane De La Rosa 1.2.840.1 [id number] Univers 00:00:00 00:00:00 Alexandra 09782.1.1 ity of 3.412.2.7 [place] .3.418652 MD [facility] 2021-11-21 2021-11-21 Eliane De La Rosa, 1.2.840.1 [id number] Univers 00:00:00 00:00:00 Alexandra 02199.1.1 ity of 3.412.2.7 [place] .3.371294 MD [facility] 2021-11-17 2021-11-17 Emergency Hilario Pardo 1.2.840.1 [id number] Univers 13:52:00 22:56:00 83547.1.1 ity of 3.412.2.7 [place] .3.028543 MD [facility] 2021-11-17 2021-11-17 Emergency Hilario Pardo 1.2.840.1 [id number] Univers 13:52:00 22:56:00 93583.1.1 ity of 3.412.2.7 [place] .3.042135 MD [facility] 2021-11-17 2021-11-17 Jesse Flowers 1.2.840.1 [id number] Univers 00:00:00 00:00:00 Only Shilo 45461.1.1 it y of 3.412.2.7 [place] .3.910147 MD [facility] 2021-11-17 2021-11-17 Travel 1.2.840.1 1.2.773.247 0771 [id number] Univers 00:00:00 00:00:00 21319.1.1 350.1.13.41 ity of 3.412.2.7 [place]7.3.698 [place] .3.075[place] 084.8 MD [facility] 2021-11-17 2021-11-17 Telephone Tee, Jazzmine 1.2.840.1 [id number] 1 [id number] Univers 00:00:00 00:00:00 M 61669.1.1 ity of 3.412.2.7 [place] .3.586101 MD [facility] 2021-11-17 2021-11-17 Jesse Flowers, 1.2.840.1 [id number] Univers 00:00:00 00:00:00 Only Shilo 37908.1.1 it y of 3.412.2.7 [place] .3.710256 MD [facility] 2021-11-17 2021-11-17 Travel 1.2.840.1 1.2.204.515 4049 [id number] Univers 00:00:00 00:00:00 73767.1.1 350.1.13.41 ity of 3.412.2.7 [place]7.3.698 [place] .3.228159 08Magi.Olga [facility] 2021-11-17 2021-11-17 Jazzmine Blair 1.2.840.1 [id number] 1 [id number] Univers 00:00:00 00:00:00 Samantha 25009.1.1 ity of 3.412.2.7 [place] .3.821401 MD [facility] 2021-11-14 2021-11-14 Jesse Polk 1.2.840.1 [id number] Univers 00:00:00 00:00:00 Only Ene Singh 62536.1.1 ity of 3.412.2.7 [place] .3.433944 MD [facility] 2021-11-14 2021-11-14 (TEL) [facility] [id number] Co mmon 00:00:00 00:00:00 [facility] 2021-11-14 2021-11-14 Jesse Polk 1.2.840.1 [id number] Univers 00:00:00 00:00:00 Only Ene Singh 14846.1.1 ity of 3.412.2.7 [place] .3.298898 MD [facility] 2021-11-13 2021-11-13 Orders Gaurav, 1.2.840.1 [id number] 1093 [id number] Univers 00:00:00 00:00:00 Only Aaron Basilio 24086.1.1 ity of 3.412.2.7 [place] .3.169536 MD [facility] 2021-11-13 2021-11-13 Orders Gaurav, 1.2.840.1 [id number] 1093 [id number] Univers 00:00:00 00:00:00 Only Aaron Basilio 90495.1.1 ity of 3.412.2.7 [place] .3.220777 MD [facility] 2021-11-08 2021-11-12 [facility], 1.2.840.1 [id number] Univers 13:14:00 15:50:00 Encounter Ene Singh 92205.1.1 it y of 3.412.2.7 [place] .3.180266 MD [facility] 2021-11-08 2021-11-12 [facility] 1.2.840.1 [id number] Univers 13:14:00 15:50:00 Encounter Ene Singh 75910.1.1 it y of 3.412.2.7 [place] .3.115636 MD [facility] 2021-11-12 2021-11-12 Nurse Huan, 1.2.840.1 [id number] Univers 00:00:00 00:00:00 Triage Zafar 09375.1.1 ity of 3.412.2.7 [place] .3.128501 MD [facility] 2021-11-12 2021-11-12 Jesse Guthrie 1.2.840.1 [id number] 101 [id number] Univers 00:00:00 00:00:00 Only Shailesh 98088.1.1 ity of 3.412.2.7 [place] .3.213591 MD [facility] 2021-11-12 2021-11-12 Orders [place], 1.2.840.1 [id number] Univers 00:00:00 00:00:00 Only Shailesh 38359.1.1 ity of 3.412.2.7 [place] .3.938357 MD [facility] 2021-11-12 2021-11-12 Nurse Huan, 1.2.840.1 [id number] Univers 00:00:00 00:00:00 Triage Zafar 81619.1.1 ity of 3.412.2.7 [place] .3.465035 MD [facility] 2021-11-08 2021-11-08 Surgery Jam, 1.2.840.1 [id number] Univers 16:25:00 19:00:00 Ene Singh 22709.1.1 ity of 3.412.2.7 [place] .3.711324 MD [facility] 2021-11-08 2021-11-08 Surgery Jam, 1.2.840.1 [id number] Univers 16:25:00 19:00:00 Ene Singh 30490.1.1 ity of 3.412.2.7 [place] .3.606563 MD [facility] 2021-11-08 2021-11-08 Anesthesia Nilam Portillo 1.2.840. 1 [id number] Univers 15:00:00 17:06:00 Event Soraya-Chevy De La Rosa 11849.1.1 ity of 3.412.2.7 [place] .3.821039 MD [facility] 2021-11-08 2021-11-08 Anesthesia Nilam Portillo 1.2.840. 1 [id number] Univers 15:00:00 17:06:00 Event Chevy De La Rosa 19278.1.1 ity of 3.412.2.7 [place] .3.894178 MD [facility] 2021-11-08 2021-11-08 Hospital Jam, 1.2.840.1 [id number] Univers 09:22:56 13:13:00 Encounter Ene Singh 52526.1.1 it y of 3.412.2.7 [place] .3.091542 MD [facility] 2021-11-08 2021-11-08 [facility] Jam, 1.2.840.1 [id number] Univers 09:22:56 13:13:00 Encounter Ene Singh 41398.1.1 it y of 3.412.2.7 [place] .3.658266 MD [facility] 2021-11-08 2021-11-08 Prep for Jam, 1.2.840.1 [id number] [id number] Univers 00:00:00 00:00:00 Surgery Ene Singh 38479.1.1 ity of 3.412.2.7 [place] .3.691356 MD [facility] 2021-11-08 2021-11-08 Travel 1.2.840.1 1.2.566.722 4951 [id number] Univers 00:00:00 00:00:00 74814.1.1 350.1.13.41 ity of 3.412.2.7 [place].3.698 [place] .3.577[place] 084.8 MD [facility] 2021-11-08 2021-11-08 Prep for Jam, 1.2.840.1 [id number] Univers 00:00:00 00:00:00 Surgery Ene Singh 22700.1.1 ity of 3.412.2.7 [place] .3.670672 MD [facility] 2021-11-08 2021-11-08 Travel 1.2.840.1 1.2.257.422 6225 [id number] Univers 00:00:00 00:00:00 11093.1.1 350.1.13.41 ity of 3.412.2.7 [place]7.3.698 [place] .3.030473 084.8 MD [facility] 2021-11-07 2021-11-07 [facility] 1.2.840.1 [id number] 1 [id number] Univers 13:30:00 23:59:00 Encounter Kong patel 91703.1.1 ity of 3.412.2.7 [place] .3.015804 MD [facility] 2021-11-07 2021-11-07 [facility] 1.2.840.1 [id number] 1 [id number] Univers 13:30:00 23:59:00 Encounter Kong patel 80194.1.1 ity of 3.412.2.7 [place] .3.318377 MD [facility] 2021-11-07 2021-11-07 Office Cintia Adame 1.2.840.1 [id number] 0 [id number] Univers 13:00:00 16:26:28 Visit Liliana Martin 31105.1.1 ity of 3.412.2.7 [place] .3.899516 MD [facility] 2021-11-07 2021-11-07 Office Cintia Adame 1.2.840.1 [id number] 0 [id number] Univers 13:00:00 16:26:28 Visit Liliana Martin 35812.1.1 ity of 3.412.2.7 [place] .3.574077 MD [facility] 2021-11-07 2021-11-07 [facility] 1.2.840.1 [id number] Univers 12:32:16 13:29:00 Encounter Cintia 33750.1.1 it y of 3.412.2.7 [place] .3.318009 MD [facility] 2021-11-07 2021-11-07 [facility] 1.2.840.1 [id number] Univers 12:32:16 13:29:00 Encounter Cintia 47820.1.1 it y of 3.412.2.7 [place] .3.219244 MD [facility] 2021-11-07 2021-11-07 [facility] Alexandra De La Rosa 1.2.840.1 [id number] 7 [id number] Univers 09:51:25 12:31:00 Encounter Rebecca Brown 92354.1.1 ity of 3.412.2.7 [place] .3.620299 MD [facility] 2021-11-07 2021-11-07 [facility] Alexandra De La Rosa 1.2.840.1 [id number] 7 [id number] Univers 09:51:25 12:31:00 Encounter Rebecca Brown 60582.1.1 ity of 3.412.2.7 [place] .3.604936 MD [facility] 2021-11-07 2021-11-07 Travel 1.2.840.1 1.2.078.966 1418 [id number] Univers 00:00:00 00:00:00 05860.1.1 350.1.13.41 ity of 3.412.2.7 [place]7.3.698 [place] .3.625708 084.Olga [facility] 2021-11-07 2021-11-07 Travel 1.2.840.1 1.2.061.238 0687 [id number] Univers 00:00:00 00:00:00 88130.1.1 350.1.13.41 ity of 3.412.2.7 2.[place]7.3.698 [place] .3.5360[place] 084.Olga [facility] 2021-10-28 2021-10-28 Prep for Alpard, 1.2.840.1 [id number] Univers 00:00:00 00:00:00 Surgery Oralia Jamil 55954.1.1 i ty of 3.412.2.7 [place] .3.009978 MD [facility] 2021-10-28 2021-10-28 Prep for Alpard, 1.2.840.1 [id number] Univers 00:00:00 00:00:00 Surgery Oralia Jamil 51034.1.1 i ty of 3.412.2.7 [place] .3.247541 MD [facility] 2021-10-14 2021[facility]10-27 [facility] [id number] Univers 23:44:00 18:21:00 Encounter Sofya Elmore 44440.1.1 ity of EugeneSharlene thakur Maryse 3.412.2.7 [place] Cintia Adame .3.882961 Amber Rice .8 [facility] 2021-10-14 2021-10-27 [facility] 1.2.840.1 [id number] Univers 23:44:00 18:21:00 Encounter Sofya Elmore 22991.1.1 ity of Sharlene Madrigal Maryse 3.412.2.7 [place] Cintia Adame .3.470544 Amber Rice .8 [facility] 2021-10-25 2021-10-25 Ancillary Vivian, 1.2.840.1 [id number] [id number] Univers 20:00:00 20:05:00 Procedure Cerena 91813.1.1 it y of 3.412.2.7 [place]n .3.665344 .8 [facility] 2021-10-25 2021-10-25 Ancillary Vivian, 1.2.840.1 [id number] [id number] Univers 20:00:00 20:05:00 Procedure Cerena 89095.1.1 it y of 3.412.2.7 [place]n .3.154022 .8 [facility] 2021-10-25 2021-10-25 Orders de Lumban, 1.2.840.1 [id number] [id number] Univers 00:00:00 00:00:00 Only Shirley C 67099.1.1 ity of 3.412.2.7 Donn .3.737333 .8 [facility] 2021-10-25 2021-10-25 Orders de Lumban, 1.2.840.1 [id number] [id number] Univers 00:00:00 00:00:00 Only Shirley C 55722.1.1 ity of 3.412.2.7 [place] .3.432351 MD [facility] 2021-10-19 2021-10-19 Anesthesia Krish, 1.2.840.1 [id number] 10 [id number] Univers 23:59:59 23:59:59 Event Link 07521.1.1 ity of 3.412.2.7 [place] .3.568878 MD [facility] 2021-10-19 2021-10-19 Anesthesia Krish, 1.2.840.1 [id number] 10 [id number] Univers 23:59:59 23:59:59 Event Link 10100.1.1 ity of 3.412.2.7 [place] .3.293173 MD [facility] 2021-10-18 2021-10-18 Surgery Yong Palma 1.2.840.1 [id number] 1092 [id number] Univers 11:32:00 12:32:00 08712.1.1 ity of 3.412.2.7 [place] .3.405772 MD [facility] 2021-10-18 2021-10-18 Surgery Yong Palma 1.2.840.1 [id number] 1092 [id number] Univers 11:32:00 12:32:00 45596.1.1 ity of 3.412.2.7 [place] .3.914405 MD [facility] 2021-10-18 2021-10-18 Anesthesia Armendariz, 1.2.840.1 [id number] [id number] Univers 10:57:00 12:21:00 Event Padmini 96492.1.1 ity of 3.412.2.7 [place] .3.831117 MD [facility] 2021-10-18 2021-10-18 Anesthesia Armendariz, 1.2.840.1 [id number] Univers 10:57:00 12:21:00 Event Padmini 58899.1.1 ity of 3.412.2.7 [place] .3.705851 MD [facility] 2021-10-18 2021-10-18 Orders Priscilla, 1.2.840.1 [id number] Univers 00:00:00 00:00:00 Only Eddie F 55687.1.1 ity of 3.412.2.7 [place] .3.407674 MD [facility] 2021-10-18 2021-10-18 Orders Priscilla, 1.2.840.1 [id number] Univers 00:00:00 00:00:00 Only Eddie F 44542.1.1 ity of 3.412.2.7 [place] .3.105789 MD [facility] 2021-10-15 2021-10-15 Prep for Elizabeth Hammer 1.2.840.1 [id number] 1 [id number] Univers 00:00:00 00:00:00 Surgery 49743.1.1 ity of 3.412.2.7 [place] .3.826234 MD [facility] 2021-10-15 2021-10-15 Travel 1.2.840.1 1.2.747.854 6240 [id number] Univers 00:00:00 00:00:00 06334.1.1 350.1.13.41 ity of 3.412.2.7 [place]7.3.698 [place] .3.299073 084.8 MD [facility] 2021-10-15 2021-10-15 Prep for Elizabeth aHmmer 1.2.840.1 [id number] 1 [id number] Univers 00:00:00 00:00:00 Surgery 79580.1.1 ity of 3.412.2.7 [place] .3.082947 MD [facility] 2021-10-15 2021-10-15 Travel 1.2.840.1 1.2.930.430 1603 [id number] Univers 00:00:00 00:00:00 59531.1.1 350.1.13.41 ity of 3.412.2.7 2.[place]7.3.698 [place] .3.754575 084.8 MD [facility] 2021-10-14 2021-10-14 Travel 1.2.840.1 1.2.269.510 4991 [id number] Univers 00:00:00 00:00:00 04235.1.1 350.1.13.41 ity of 3.412.2.7 2.[place]7.3.698 [place] .3.640373 084.8 .8 [facility] 2021-10-14 2021-10-14 Travel 1.2.840.1 1.2.963.272 0105 [id number] Univers 00:00:00 00:00:00 79421.1.1 350.1.13.41 ity of 3.412.2.7 2.[place].7.3.698 [place] .3.218735 084.8 MD [facility] 2021-10-11 2021-10-11 [facility] Ene Polk 1.2.840.1 [id number] 7 [id number] Univers 14:30:00 23:59:00 Encounter Kita Campos 53972.1.1 ity of 3.412.2.7 [place] .3.515172 MD [facility] 2021-10-11 2021-10-11 [facility] Ene Polk 1.2.840.1 [id number] 7 [id number] Univers 14:30:00 23:59:00 Encounter Kita Campos 98548.1.1 ity of 3.412.2.7 [place] .3.412000 MD [facility] 2021-10-07 2021-10-07 (TEL) STLMLC STLMLC [id number] Co mmon 00:00:00 00:00:00 [facility] 2021-10-06 2021-10-06 (TEL) STLMLC STLMLC [id number] Co mmon 00:00:00 00:00:00 [facility] 2021-10-04 2021-10-04 (TEL) STLMLC STLMLC [id number] Co mmon 00:00:00 00:00:00 [facility] 2021-10-03 2021-10-03 Jesse Rj, 1.2.840.1 [id number] Univers 00:00:00 00:00:00 Only Alexandra 17356.1.1 ity of 3.412.2.7 [place] .3.150323 MD [facility] 2021-10-03 2021-10-03 Telephone Lindajluis, 1.2.840.1 [id number] Univers 00:00:00 00:00:00 Wayne M 62289.1.1 it y of 3.412.2.7 [place] .3.880712 MD [facility] 2021-10-03 2021-10-03 Jesse De La Rosa, 1.2.840.1 [id number] Univers 00:00:00 00:00:00 Only Alexandra 37278.1.1 ity of 3.412.2.7 [place] .3.886466 MD [facility] 2021-10-03 2021-10-03 Telephone Gloria, 1.2.840.1 [id number] Univers 00:00:00 00:00:00 Wayne M 38298.1.1 it y of 3.412.2.7 [place] .3.577750 MD [facility] 2021-09-30 2021-09-30 (TEL) STLMLC STLMLC [id number] Co mmon 00:00:00 00:00:00 [facility] 2021-09-29 2021-09-29 (TEL) STLMLC STLMLC [id number] Co mmon 00:00:00 00:00:00 [facility] 2021-09-29 2021-09-29 (TEL) STLMLC STLMLC [id number] Co mmon 00:00:00 00:00:00 [facility] 2021-09-28 2021-09-28 Slava Witt 1.2.840.1 101 [id number] Univers 14:30:00 15:18:15 Link Schaffer 52672.1.1 ity of 3.412.2.7 [place] .3.685144 MD [facility] 2021-09-28 2021-09-28 [facility] 1.2.840.1 101 [id number] [id number] Univers 14:30:00 15:18:15 Link Schaffer 27446.1.1 ity of 3.412.2.7 [place] .3.851671 MD [facility] 2021-09-26 2021-09-26 Documentat Fermin, 1.2.840.1 [id number] 1 [id number] Univers 00:00:00 00:00:00 ion Adele 86839.1.1 ity of 3.412.2.7 [place] .3.627688 MD [facility] 2021-09-26 2021-09-26 Documentat Fermin, 1.2.840.1 [id number] 1 [id number] Univers 00:00:00 00:00:00 ion Adele 23441.1.1 ity of 3.412.2.7 [place] .3.640910 MD [facility] 2021-09-23 2021-09-23 [facility], 1.2.840.1 [id number] 03088 [id number] Univers 11:00:00 23:59:00 Encounter Ene Singh 99916.1.1 it y of 3.412.2.7 [place] .3.457786 MD [facility] 2021-09-23 2021-09-23 [facility] 1.2.840.1 [id number] Univers 11:00:00 23:59:00 Encounter Ene Singh 64244.1.1 it y of 3.412.2.7 [place] .3.257335 MD [facility] 2021-09-23 2021-09-23 [facility] Ene Polk 1.2.840.1 [id number] 5 [id number] Univers 10:00:00 10:59:00 Encounter Roberta Ortega 99368.1.1 ity of 3.412.2.7 [place] .3.672448 MD [facility] 2021-09-23 2021-09-23 [facility] Ene Roberts 1.2.840.1 [id number] 5 [id number] Univers 10:00:00 10:59:00 Encounter Roberta Ortega 77278.1.1 ity of 3.412.2.7 [place] .3.986578 MD [facility] 2021-09-23 2021-09-23 Travel 1.2.840.1 1.2.946.786 5483 [id number] Univers 00:00:00 00:00:00 85008.1.1 350.1.13.41 ity of 3.412.2.7 2.[place]7.3.698 [place] .3.472532 084.Olga [facility] 2021-09-23 2021-09-23 Travel 1.2.840.1 1.2.285.439 7605 [id number] Univers 00:00:00 00:00:00 06502.1.1 350.1.13.41 ity of 3.412.2.7 2.[place]7.3.698 [place] .3.526374 084.8 MD [facility] 2021-09-22 2021-09-22 Jesse Davenport 1.2.840.1 [id number] 1091 [id number] Univers 00:00:00 00:00:00 Only Camilla Kinney 53171.1.1 ity of 3.412.2.7 [place] .3.568718 MD [facility] 2021-09-22 2021-09-22 (EST. STLMLC STLMLC [id number] Co mmon 00:00:00 00:00:00 VIDEO) EST Spi rit VIRTUAL - [facility] 2021-09-22 2021-09-22 Jesse Davenport 1.2.840.1 [id number] 1091 [id number] Univers 00:00:00 00:00:00 Only Camilla Kinney 91379.1.1 ity of 3.412.2.7 [place] .3.508217 MD [facility] 2021-09-21 2021-09-21 [facility] Slava Ariza 1.2.840.1 [id number] 10 [id number] Univers 12:58:44 23:59:00 Encounter Nick 41948.1.1 it y of 3.412.2.7 [place] .3.076310 MD [facility] 2021-09-21 2021-09-21 [facility] Slava Ariza 1.2.840.1 [id number] 10 [id number] Univers 12:58:44 23:59:00 Encounter Nick 61693.1.1 it y of 3.412.2.7 [place] .3.023131 MD [facility] 2021-09-21 2021-09-21 Office Jean Marie Christy 1.2.840.1 [id number] 10 [id number] Univers 14:00:00 16:07:25 Visit E 36069.1.1 ity of 3.412.2.7 [place] .3.143677 MD [facility] 2021-09-21 2021-09-21 Office Jean Marie Hoang 1.2.840.1 [id number] 10 [id number] Univers 14:00:00 16:07:25 Visit E 41027.1.1 ity of 3.412.2.7 [place] .3.437306 MD [facility] 2021-09-21 2021-09-21 Documentat Ethel, 1.2.840.1 [id number] 1 [id number] Univers 00:00:00 00:00:00 ion Camilla Kinney 78881.1.1 ity of 3.412.2.7 [place] .3.772866 MD [facility] 2021-09-21 2021-09-21 Travel 1.2.840.1 1.2.735.806 6585 [id number] Univers 00:00:00 00:00:00 87989.1.1 350.1.13.41 ity of 3.412.2.7 2.2[place]7.3.698 [place] .[place].513174 084.8 MD [facility] 2021-09-21 2021-09-21 Documentat Ethel, 1.2.840.1 [id number] 1 [id number] Univers 00:00:00 00:00:00 ion Camilla Kinney 47099.1.1 ity of 3.412.2.7 [place] .3.718300 MD [facility] 2021-09-21 2021-09-21 Travel 1.2.840.1 1.2.263.674 9320 [id number] Univers 00:00:00 00:00:00 22979.1.1 350.1.13.41 ity of 3.412.2.7 2.2[place]7.3.698 [place] .3.593745 084.8 MD Jett [facility] 2021-09-20 2021-09-20 [facility] [id number] [id number] Univers 13:05:31 23:59:00 Encounter Rachid Granado 57241.1.1 ity of 3.412.2.7 [place] .3.674216 MD Jett [facility] 2021-09-20 2021-09-20 [facility] Slava Ariza 1.2.840.1 [id number] Univers 13:05:31 23:59:00 Encounter Rachid Granado 93709.1.1 ity of 3.412.2.7 [place] .3.038178 MD Jackson8 [facility] 2021-09-20 2021-09-20 [facility], 1.2.840.1 [id number] Univers 12:55:00 13:04:00 Encounter Alexandra 75255.1.1 it y of 3.412.2.7 [place] .3.741325 MD Jett [facility] 2021-09-20 2021-09-[address] [facility], 1.2.840.1 [id number] Univers 12:55:00 13:04:00 Encounter Alexandra 92657.1.1 it y of 3.412.2.7 [place] .3.372348 MD Jackson8 [facility] 2021-09-20 2021-09-20 [facility].2.840[facility]1 [id number] Univers 11:00:00 12:01:00 Encounter Candy Churchill 82217.1.1 ity of 3.412.2.7 [place] .3.022694 MD Jackson8 [facility] 2021-09-20 2021-09-20 [facility] 1.2.840.1 1010 [id number] [id number] Univers 11:00:00 12:01:00 Encounter Candy Churchill 00472.1.1 ity of 3.412.2.7 [place] .3.782055 MD Jackson8 [facility] 2021-09-20 2021-09-20 [facility], 1.2.840.1 [id number] Univers 10:45:00 10:59:00 Encounter Alexandra 74723.1.1 it y of 3.412.2.7 [place] .3.040001 MD Jackson8 [facility] 2021-09-20 2021-09-[address] [facility], 1.2.840.1 [id number] Univers 10:45:00 10:59:00 Encounter Alexandra 15478.1.1 it y of 3.412.2.7 [place] .3.387368 MD Jackson8 [facility] 2021-09-20 2021-09-20 [facility], 1.2.840.1 [id number] Univers 00:00:00 00:00:00 Only Alexandra 09169.1.1 ity of 3.412.2.7 [place] .3.531912 MD Jackson8 [facility] 2021-09-20 2021-09-20 Telephone Gloria, 1.2.840.1 [id number] Univers 00:00:00 00:00:00 Wayne Singh 07016.1.1 it y of 3.412.2.7 [place] .3.724878 MD Jett [facility] 2021-09-20 2021-09-20 Travel 1.2.840.1 1.2.007.862 [id number] Univers 00:00:00 00:00:00 93880.1.1 350.1.13.41 ity of 3.412.2.[place]3.698 [place] .3.338466 084.8 MD Jett [facility] 2021-09-20 2021-09-20 Jesse De La Rosa, 1.2.840.1 [id number] Univers 00:00:00 00:00:00 Only Alexandra 55351.1.1 ity of 3.412.2.7 [place] .3.348554 MD Jett [facility] 2021-09-20 2021-09-20 Telephone Gloria, 1.2.840.1 [id number] Univers 00:00:00 00:00:00 Wayne Singh 40848.1.1 it y of 3.412.2.7 [place] .3.944722 MD Jett [facility] 2021-09-20 2021-09-20 Travel 1.2.840.1 1.2.901.592 [id number] Univers 00:00:00 00:00:00 96453.1.1 350.1.13.41 ity of 3.412.2.[place]3.698 [place] .3.9034[place] 084.8 MD Jett [facility] 2021-09-19 2021-09-19 (TEL) STLMLC STLMLC [id number] Co mmon 00:00:00 00:00:00 [facility] 2021-09-16 2021-09-16 Jesse Garcia, 1.2.840.1 [id number] Univers 00:00:00 00:00:00 Only Caprice 31350.1.1 [place] 3.412.2.7 [place] .3.371835 MD Jackson8 [facility] 2021-09-16 2021-09-16 Jesse Garcia 1.2.840.1 [id number] Univers 00:00:00 00:00:00 Only Caprice 63516.1.1 [place] 3.412.2.7 [place] .3.602886 MD Jackson8 [facility] 2021-09-15 2021-09-15 Jesse De La Rosa, 1.2.840.1 [id number] Univers 00:00:00 00:00:00 Only Alexandra 55231.1.1 ity of 3.412.2.7 [place] .3.358001 MD Jett [facility] 2021-09-15 2021-09-15 Telephone Gloria, 1.2.840.1 [id number] Univers 00:00:00 00:00:00 Wayne M 87047.1.1 it y of 3.412.2.7 [place] .3.448150 MD Jett [facility] 2021-09-15 2021-09-15 Jesse De La Rosa, 1.2.840.1 [id number] Univers 00:00:00 00:00:00 Only Alexandra 91678.1.1 ity of 3.412.2.7 [place] .3.424011 MD Jett [facility] 2021-09-15 2021-09-15 Telephone Gloria, 1.2.840.1 [id number] Univers 00:00:00 00:00:00 Wayne M 83413.1.1 it y of 3.412.2.7 [place] .3.970512 MD Jett [facility] 2021-09-08 2021-09-08 Documentat Kaci, 1.2.840.1 [id number] [id number] Univers 00:00:00 00:00:00 ion Huan H 25171.1.1 ity of 3.412.2.7 [place] .3.153480 MD Jett [facility] 2021-09-08 2021-09-08 Documentat Clemons, 1.2.840.1 [id number] Univers 00:00:00 00:00:00 ion Huan H 39282.1.1 ity of 3.412.2.7 [place] .3.188926 MD Jackson8 [facility] 2021-09-07 2021-09-07 Slava Witt 1.2.840.1 101 [id number] Univers 14:30:00 15:00:00 Camilla Davenport 53334.1.1 ity of 3.412.2.7 [place] .3.498186 MD Jackson8 [facility] 2021-09-07 2021-09-07 Nutrition Slava Washburn 1.2.840.1 101 [id number] Univers 14:30:00 15:00:00 Camilla Davenport 06462.1.1 ity of 3.412.2.7 [place] .3.247024 MD Jett [facility] 2021-09-07 2021-09-07 Outpatient SLAVA WASHBURN [facility] [id number] 12:16:23 12:16:23 [facility] 2021-09-07 2021-09-07 Documentat Andres, 1.2.840.1 [id number] 1 [id number] Univers 00:00:00 00:00:00 ion Kita H 01899.1.1 ity of 3.412.2.7 [place] .3.002949 MD Jett [facility] 2021-09-07 2021-09-07 Documentat Cathleen, 1.2.840.1 [id number] Univers 00:00:00 00:00:00 ion Janyn L 49047.1.1 ity of 3.412.2.7 [place] .3.386733 MD Jett [facility] 2021-09-07 2021-09-07 Orders Erasto, 1.2.840.1 [id number] Univers 00:00:00 00:00:00 Only Anca H 76301.1.1 it y of 3.412.2.7 [place] .3.838882 MD Jackson8 [facility] 2021-09-07 2021-09-07 Documentat Campos, 1.2.840.1 [id number] 1 [id number] Univers 00:00:00 00:00:00 ion Kita H 61669.1.1 ity of 3.412.2.7 [place] .3.881419 MD Jackson8 [facility] 2021-09-07 2021-09-07 Documentat Cathleen, 1.2.840.1 [id number] Univers 00:00:00 00:00:00 ion Crista L 24236.1.1 ity of 3.412.2.7 [place] .3.639924 MD Jackson8 [facility] 2021-09-07 2021-09-07 Orders Erasto, 1.2.840.1 [id number] Univers 00:00:00 00:00:00 Only Anca H 91656.1.1 it y of 3.412.2.7 [place] .3.060475 MD Jackson8 [facility] 2021-09-06 2021-09-06 [facility] Alexandra De La Rosa 1.2.840.1 [id number] Univers 14:15:00 23:59:00 Encounter Crista Connolly 55098.1.1 ity of 3.412.2.7 [place] .3.490965 MD Jackson8 [facility] 2021-09-06 2021-09-06 [facility] Alexandra Yan 1.2.840.1 [id number] 7 [id number] Univers 14:15:00 23:59:00 Encounter Crista Connolly 09936.1.1 ity of 3.412.2.7 [place] .3.342807 MD Jackson8 [facility] 2021-09-06 2021-09-06 Documentat Cathleen, 1.2.840.1 [id number] Univers 00:00:00 00:00:00 ion Crista L 54914.1.1 ity of 3.412.2.7 [place] .3.514302 MD Jackson8 [facility] 2021-09-06 2021-09-06 Documentat Cathleen, 1.2.840.1 [id number] Univers 00:00:00 00:00:00 ion Crista L 24082.1.1 ity of 3.412.2.7 [place] .3.393509 MD Jackson8 [facility] 2021-09-06 2021-09-06 (TEL) [facility] [id number] Co mmon 00:00:00 00:00:00 [facility] 2021-09-06 2021-09-06 Documentat Cathleen, 1.2.840.1 [id number] Univers 00:00:00 00:00:00 ion Crista L 95066.1.1 ity of 3.412.2.7 [place] .3.910377 MD Jackson8 [facility] 2021-09-06 2021-09-06 Documentat Cathleen, 1.2.840.1 [id number] Univers 00:00:00 00:00:00 ion Crista L 35317.1.1 ity of 3.412.2.7 [place] .3.615365 MD Jett [facility] 2021-09-05 2021-09-05 Slava Witt 1.2.840.1 101 [id number] Univers 09:00:00 09:30:00 Camilla Davenport 98874.1.1 ity of 3.412.2.7 [place] .3.204265 MD Jackson8 [facility] 2021-09-05 2021-09-05 Nutrition Slava Washburn 1.2.840.1 101 [id number] Univers 09:00:00 09:30:00 Camilla Davenport 78809.1.1 ity of 3.412.2.7 [place] .3.814708 MD Jackson8 [facility] 2021-09-05 2021-09-05 Telephone Ethel, 1.2.840.1 [id number] 10 [id number] Univers 00:00:00 00:00:00 Camilla Kinney 65461.1.1 ity of 3.412.2.7 [place] .3.337945 MD Jett [facility] 2021-09-05 2021-09-05 Telephone Ethel, 1.2.840.1 [id number] 10 [id number] Univers 00:00:00 00:00:00 Camilla Kinney 52587.1.1 ity of 3.412.2.7 [place] .3.540465 MD Jackson8 [facility] 2021-09-02 2021-09-02 Telephone Rj, 1.2.840.1 [id number] [id number] Univers 00:00:00 00:00:00 Alexandra 02146.1.1 ity of 3.412.2.7 [place] .3.956636 MD Jett [facility] 2021-09-02 2021-09-02 Telephone Rj 1.2.840.1 [id number] [id number] Univers 00:00:00 00:00:00 Alexandra 00826.1.1 ity of 3.412.2.7 [place] .3.237808 MD Jackson8 [facility] 2021-09-01 2021-09-01 Telephone April Wylie 1.2.840.1 [id number] Univers 00:00:00 00:00:00 Elza 25337.1.1 ity of 3.412.2.7 [place] .3.053600 MD Jett [facility] 2021-09-01 2021-09-01 Telephone April Wylie 1.2.840.1 [id number] Univers 00:00:00 00:00:00 J 42214.1.1 ity of 3.412.2.7 [place] .3.970525 MD Jett [facility] 2021-08-25 2021-08-31 [facility] Hilario Pardo 1.2.840.1 [id number] 1 [id number] Univers 17:50:00 16:18:00 Encounter Alta Ferrell 25570.1.1 ity of Olegario Rain. 3.412.2.7 Cintia Rubio .3.915303 Elvia Go .8 [facility]1 [id number] [facility] 17:50:00 16:18:00 Encounter Alta Ferrell 78574.1.1 ity of Olegario Rain 3.412.2.7 [place] Cintia Adame .3.544545 Elvia Go .8 [facility] 2021-08-31 2021-08-31 [facility] SLAVA WASHBURN [facility] [id number] 14:19:25 14:19:27 Chucky nic 2021-08-31 2021-08-31 Orders Genaro, 1.2.840.1 [id number] Univers 00:00:00 00:00:00 Only Michael Rich 56469.1.1 ity of 3.412.2.7 [place] .3.595282 .8 [facility] 2021-08-31 2021-08-31 Orders Genaro, 1.2.840.1 [id number] Univers 00:00:00 00:00:00 Only Michael Rich 14309.1.1 ity of 3.412.2.7 [place] .3.711946 .Olga [facility] 2021-08-30 2021-08-30 Orders Callum, 1.2.840.1 [id number] Univers 00:00:00 00:00:00 Only Caprice Singh 02505.1.1 ity of 3.412.2.7 [place] .3.475204 .Olga [facility] 2021-08-30 2021-08-30 Orders Callum, 1.2.840.1 [id number] Univers 00:00:00 00:00:00 Only Caprice Singh 37137.1.1 ity of 3.412.2.7 [place] .3.571242 MD Jackson8 [facility] 2021-08-29 2021-08-29 Anesthesia Sara Deras 1.2.840.1 1 [id number] Univers 13:56:00 16:08:00 Event Zach Mandujano 45408.1.1 ity of 3.412.2.7 [place] .3.209418 MD Jackson8 [facility] 2021-08-29 2021-08-29 Anesthesia Sara Deras 1.2.840.1 1 [id number] Univers 13:56:00 16:08:00 Event Zach Mandujano 00798.1.1 ity of 3.412.2.7 [place] .3.341663 MD Jackson8 [facility] 2021-08-29 2021-08-29 Surgery Flowers, 1.2.840.1 [id number] Univers 13:35:00 15:10:00 Michael Rich 08683.1.1 ity of 3.412.2.7 [place] .3.530822 MD Jackson8 [facility] 2021-08-29 2021-08-29 Surgery Flowers, 1.2.840.1 [id number] Univers 13:35:00 15:10:00 Michael Rich 89706.1.1 ity of 3.412.2.7 [place] .3.070424 MD Jackson8 [facility] 2021-08-29 2021-08-29 Inpatient SLAVA WASHBURN MDA, MDA [id number] 10:07:53 10:07:55 Chucky patel 2021-08-26 2021-08-26 Outpatient DOROTHY TORO MDA MDA [id number] 00:20:55 00:34:46 SUSAN patel 2021-08-26 2021-08-26 Prep for Elizabeth Hammer 1.2.840.1 [id number] 1 [id number] Univers 00:00:00 00:00:00 Surgery 29420.1.1 ity of 3.412.2.7 [place] .3.363894 MD Jett [facility] 2021-08-26 2021-08-26 Prep for Elizabeth Hammer 1.2.840.1 [id number] 1 [id number] Univers 00:00:00 00:00:00 Surgery 42504.1.1 ity of 3.412.2.7 [place] .3.103447 MD Jackson8 [facility] 2021-08-25 2021-08-25 Outpatient DOROTHY VARGAS [facility] [id number] 12:28:34 12:35:55 LLOYD Jorge [facility] 2021-08-25 2021-08-25 Ancillary Slava Ariza 1.2.840.1 [id number] 1 [id number] Univers 11:00:00 11:15:00 Procedure Nick 42317.1.1 it y of 3.412.2.7 [place] .3.785186 MD Jett [facility] 2021-08-25 2021-08-25 Ancillary Slava Washburn 1.2.840.1 [id number] 1 [id number] Univers 11:00:00 11:15:00 Procedure Nick 32454.1.1 it y of 3.412.2.7 [place] .3.415239 MD Jett [facility] 2021-08-25 2021-08-25 Documentat Carina, 1.2.840.1 [id number] 1 [id number] Univers 00:00:00 00:00:00 ion Sara 63016.1.1 it y of 3.412.2.7 [place] .3.535582 MD Jett [facility] 2021-08-25 2021-08-25 Telephone Gloria 1.2.840.1 [id number] Univers 00:00:00 00:00:00 Wayne Singh 62785.1.1 it y of 3.412.2.7 [place] .3.150180 MD Jackson8 [facility] 2021-08-25 2021-08-25 Jesse De La Rosa 1.2.840.1 [id number] Univers 00:00:00 00:00:00 Only Alexandra 94349.1.1 ity of 3.412.2.7 [place] .3.478517 MD Jett [facility] 2021-08-25 2021-08-25 Jesse Vargas 1.2.840.1 [id number] Univers 00:00:00 00:00:00 Only Lloyd Rivera 15722.1.1 i ty of 3.412.2.7 [place] .3.675302 MD Jett [facility] 2021-08-25 2021-08-25 Jesse Vargas 1.2.840.1 [id number] Univers 00:00:00 00:00:00 Only Lloyd Rivera 37606.1.1 i ty of 3.412.2.7 [place] .3.090248 MD Jett [facility] 2021-08-25 2021-08-25 Travel 1.2.840.1 1.2.151.082 5593 [id number] Univers 00:00:00 00:00:00 37346.1.1 350.1.13.41 ity of 3.412.2.7 2.[place]7.3.698 [place] .3.347807 084.8 MD Jett [facility] 2021-08-25 2021-08-25 Documentat Carina, 1.2.840.1 [id number] 1 [id number] Univers 00:00:00 00:00:00 ion Sara 82836.1.1 it y of 3.412.2.7 [place] .3.569898 MD Jett [facility] 2021-08-25 2021-08-25 Telephone Gloria 1.2.840.1 [id number] Univers 00:00:00 00:00:00 Wayne Singh 36232.1.1 it y of 3.412.2.7 [place] .3.780473 MD Jett [facility] 2021-08-25 2021-08-25 Jesse De La Rosa 1.2.840.1 [id number] Univers 00:00:00 00:00:00 Only Alexandra 60310.1.1 ity of 3.412.2.7 [place] .3.441229 MD Jackson8 [facility] 2021-08-25 2021-08-25 Orders Chris, 1.2.840.1 [id number] Univers 00:00:00 00:00:00 Only Lloyd Rivera 68293.1.1 i ty of 3.412.2.7 [place] .3.229716 MD Jackson8 [facility] 2021-08-25 2021-08-25 Orders Chris, 1.2.840.1 [id number] Univers 00:00:00 00:00:00 Only Lloyd Rivera 23496.1.1 i ty of 3.412.2.7 [place] .3.331211 MD Jett [facility] 2021-08-25 2021-08-25 Travel 1.2.840.1 1.2.965.015 6797 [id number] Univers 00:00:00 00:00:00 62504.1.1 350.1.13.41 ity of 3.412.2.7 2.2[place]7.3.698 [place] .3.862254 084.8 MD Jett [facility] 2021-08-23 2021-08-23 Telephone Gloria 1.2.840.1 [id number] Univers 00:00:00 00:00:00 Wayne Singh 34620.1.1 it y of 3.412.2.7 [place] .3.139498 MD Jett [facility] 2021-08-23 2021-08-23 Telephone Gloria 1.2.840.1 [id number] Univers 00:00:00 00:00:00 Wayne Singh 55035.1.1 it y of 3.412.2.7 [place] .3.526824 MD Jett [facility] 2021-08-22 2021-08-22 [facility] Alexandra De La Rosa 1.2.840.1 [id number] 7 [id number] Univers 09:00:00 23:59:00 Encounter Rebecca Brown 77154.1.1 ity of 3.412.2.7 [place] .3.625402 MD Jett [facility] 2021-08-22 2021-08-22 [facility] Alexandra Yan 1.2.840.1 [id number] Univers 09:00:00 23:59:00 Encounter Rebecca Brown 78788.1.1 ity of 3.412.2.7 [place] .3.011092 MD Jett [facility] 2021-08-22 2021-08-22 Telemedici Davis, 1.2.840.1 [id number] Methodi 15:00:00 15:15:00 ne Venkat Lowe 11663.1.[address] 3.430.2.7 Hospit a .3.047407 kelsey .8 2021-08-22 2021-08-22 Orders Rj, 1.2.840.1 [id number] Univers 00:00:00 00:00:00 Only Alexandra 72398.1.1 ity of 3.412.2.7 [place] .3.460511 MD Jett [facility] 2021-08-22 2021-08-22 Orders Erasto, 1.2.840.1 [id number] Univers 00:00:00 00:00:00 Only Anca Sullivan 75201.1.1 it y of 3.412.2.7 [place] .3.807051 MD Jett [facility] 2021-08-22 2021-08-22 Travel 1.2.840.1 1.2.729.787 5169 [id number] Univers 00:00:00 00:00:00 24033.1.1 350.1.13.41 ity of 3.412.2.7 2.2.7.3.698 [place] .3.331595 084.8 MD Jett [facility] 2021-08-22 2021-08-22 Orders Rj, 1.2.840.1 [id number] Univers 00:00:00 00:00:00 Only Alexandra 52086.1.1 ity of 3.412.2.7 [place] .3.843939 MD Jackson8 [facility] 2021-08-22 2021-08-22 Orders Erasto, 1.2.840.1 [id number] Univers 00:00:00 00:00:00 Only Anca Laurie 31011.1.1 it y of 3.412.2.7 [place] .3.537663 MD Jackson8 [facility] 2021-08-22 2021-08-22 Travel 1.2.840.1 1.2.317.401 4065 [id number] Univers 00:00:00 00:00:00 81761.1.1 350.1.13.41 ity of 3.412.2.7 2.2.7.3.698 [place] .3.822361 084.8 MD Jackson8 [facility] 2021-08-20 2021-08-20 Clinical Alexandra De La Rosa 1.2.840.1 [id number] Univers 11:00:00 14:50:18 Support Margo Reyes 81046.1.1 ity of 3.412.2.7 [place] .3.406004 MD Jett [facility] 2021-08-20 2021-08-20 Clinical Alexandra Yan 1.2.840.1 [id number] Univers 11:00:00 14:50:18 Support Margo Reyes 40574.1.1 ity of 3.412.2.7 [place] .3.130348 MD Jackson8 [facility] 2021-08-20 2021-08-20 Travel 1.2.840.1 1.2.667.308 5506 [id number] Univers 00:00:00 00:00:00 34935.1.1 350.1.13.41 ity of 3.412.2.7 2.2.7.3.698 [place] .3.569957 084.8 .8 [facility] 2021-08-20 2021-08-20 Eliane De La Rosa 1.2.840.1 [id number] Univers 00:00:00 00:00:00 Alexandra 62196.1.1 ity of 3.412.2.7 [place] .3.455840 .8 [facility] 2021-08-20 2021-08-20 Travel 1.2.840.1 1.2.870.813 9390 [id number] Univers 00:00:00 00:00:00 10254.1.1 350.1.13.41 ity of 3.412.2.7 2.2.7.3.698 [place] .3.244727 084.8 MD Jackson8 [facility] 2021-08-20 2021-08-20 Eliane De La Rosa 1.2.840.1 [id number] Univers 00:00:00 00:00:00 Alexandra 45232.1.1 ity of 3.412.2.7 [place] .3.181662 MD Jackson8 [facility] 2021-08-17 2021-08-17 Outpatient SLAVA WASHBURN [facility] 1090 [id number] [place] 13:23:18 13:23:18 [facility] 2021-08-15 2021-08-15 Eliane Davis 1.2.840.1 [id number] Methodi 00:00:00 00:00:[address] Venkat [address]151.1.[address] 3.430.2.7 Hospit a .3.397613 l .8 2021-08-15 2021-08-15 Eliane Adame 1.2.840.1 [id number] Univers 00:00:00 00:00:00 Cintia 62993.1.1 ity of 3.412.2.7 [place] .3.543418 MD Jackson8 [facility] 2021-08-15 2021-08-15 Eliane Adame 1.2.840.1 [id number] Univers 00:00:00 00:00:00 Cintia 07952.1.1 ity of 3.412.2.7 [place] .3.944952 MD Jett [facility] 2021-08-14 2021-08-14 Johanne Lorenzana 1.2.840.1 [id number] 1090 [id number] Univers 00:00:00 00:00:00 Only 97092.1.1 ity of 3.412.2.7 [place] .3.679904 MD Jackson8 [facility] 2021-08-14 2021-08-14 Telephone Gloria, 1.2.840.1 [id number] Univers 00:00:00 00:00:00 Wayne Singh 33079.1.1 it y of 3.412.2.7 [place] .3.097377 MD Jett [facility] 2021-08-14 2021-08-14 Johanne Lorenzana 1.2.840.1 [id number] 1090 [id number] Univers 00:00:00 00:00:00 Only 00313.1.1 ity of 3.412.2.7 [place] .3.840124 MD Jackson8 [facility] 2021-08-14 2021-08-14 Telephone Gloria, 1.2.840.1 [id number] [id number] Univers 00:00:00 00:00:00 Wayne Singh 62213.1.1 it y of 3.412.2.7 [place] .3.674516 MD Jett [facility] 2021-08-08 2021-08-08 Documentat Clemons, 1.2.840.1 [id number] Univers 00:00:00 00:00:00 ion Huan H 94254.1.1 ity of 3.412.2.7 [place] .3.566818 MD Jett [facility] 2021-08-08 2021-08-08 Documentat Clemons, 1.2.840.1 [id number] Univers 00:00:00 00:00:00 ion Huan H 62091.1.1 ity of 3.412.2.7 [place] .3.215201 MD Jackson8 [facility] 2021-08-02 2021-08-02 Slava Witt Nick 1.2.840.1 101 [id number] [id number] Univers 09:00:00 09:30:00 Camilla Davenport 86769.1.1 ity of 3.412.2.7 [place] .3.284869 MD Jackson8 [facility] 2021-08-02 2021-08-02 Nutrition Pedro Washburnluis Romero 1.2.840.1 101 006607 [id number] Univers 09:00:00 09:30:00 Camilla Davenport 80742.1.1 ity of 3.412.2.7 [place] .3.487362 MD Jackson8 [facility] 2021-08-02 2021-08-02 Documentat Fermin 1.2.840.1 [id number] 1 [id number] Univers 00:00:00 00:00:00 ion Adele 09103.1.1 ity of 3.412.2.7 [place] .3.860745 MD aJckson8 [facility] 2021-08-02 2021-08-02 Jesse Davenport 1.2.840.1 [id number] 1089 [id number] Univers 00:00:00 00:00:00 Only Camilla Kinney 69652.1.1 ity of 3.412.2.7 [place] .3.157562 MD Jackson8 [facility] 2021-08-02 2021-08-02 Documentat Fermin 1.2.840.1 [id number] 1 [id number] Univers 00:00:00 00:00:00 ion Adele 33741.1.1 ity of 3.412.2.7 [place] .3.632289 MD Jackson8 [facility] 2021-08-02 2021-08-02 Jesse Davenport 1.2.840.1 [id number] 1089 [id number] Univers 00:00:00 00:00:00 Only Camilla A 23439.1.1 ity of 3.412.2.7 [place] .3.945942 MD Jackson8 [facility] 2021-07-27 2021-07-27 Jesse De La Rosa, 1.2.840.1 [id number] 8271 Univers 00:00:00 00:00:00 Only Alexandra 67612.1.1 ity of 3.412.2.7 [place] .3.800661 MD Jackson8 [facility] 2021-07-27 2021-07-27 Jesse De La Rosa, 1.2.840.1 [id number] Univers 00:00:00 00:00:00 Only Alexandra 49032.1.1 ity of 3.412.2.7 [place] .3.520974 MD Jett [facility] 2021-07-25 2021-07-25 Documentat Clemons, 1.2.840.1 [id number] Univers 00:00:00 00:00:00 ion Huan H 22320.1.1 ity of 3.412.2.7 [place] .3.760776 MD Jett [facility] 2021-07-25 2021-07-25 Slava Tanner 1.2.840.1 [id number] Univers 00:00:00 00:00:00 Nick 81847.1.1 ity of 3.412.2.7 [place] .3.288200 MD Jett [facility] 2021-07-25 2021-07-25 Documentat Kaci, 1.2.840.1 [id number] Univers 00:00:00 00:00:00 ion Huan H 48134.1.1 ity of 3.412.2.7 [place] .3.119987 MD Jett [facility] 2021-07-25 2021-07-25 Slava Tanner 1.2.840.1 [id number] Univers 00:00:00 00:00:00 Nick 36722.1.1 ity of 3.412.2.7 [place] .3.116771 MD Jett [facility] 2021-07-19 2021-07-19 Prosper Pedro Arizaluis Romero 1.2.840.1 101 [id number] Univers 15:30:00 16:00:00 Camilla Davenport 86779.1.1 ity of 3.412.2.7 [place] .3.267692 MD Jackson8 [facility] 2021-07-19 2021-07-19 Nutrition DOROTHY Ariza Slava Romero 1.2.840.1 101 [id number] Univers 15:30:00 16:00:00 Camilla Davenport 53134.1.1 ity of 3.412.2.7 [place] .3.238991 MD Jackson8 [facility] 2021-07-19 2021-07-19 Telephone Padmini 1.2.840.1 [id number] 2100 [id number] Methodi 00:00:00 00:00:00 Venkat Lowe [address]60.1.[address] 3.430.2.7 Hospit a .3.549221 l .8 2021-07-19 2021-07-19 (TEL) [facility] STLMLC [id number] Co mmon 00:00:00 00:00:00 [facility] 2021-07-18 2021-07-18 Outpatient SLAVA WASHBURN LOLITA [facility] [id number] 15:31:07 15:31:07 [facility] 2021-07-15 2021-07-15 Telephone Gloria 1.2.840.1 [id number] [facility] 00:00:00 00:00:00 Wayne Singh 51497.1.1 it y of 3.412.2.7 [place] .3.627309 MD Jackson8 [facility] 2021-07-15 2021-07-15 Telephone Gloria 1.2.840.1 [id number] [facility] 00:00:00 00:00:00 Wayne M 02531.1.1 it y of 3.412.2.7 [place] .3Manuel358617 MD Jett [facility] 2021-07-13 2021-07-13 Yumi Beth 1.2.840.1 [id number] 49 [id number] [facility] 13:00:00 13:30:00 ne Anca Maurer H 42896.1.1 ity of 3.412.2.7 [place] .3.374893 MD Jett [facility] 2021-07-13 2021-07-13 TelemYumi Davenport 1.2.840.1 [id number] 49 [id number] [facility] 13:00:00 13:30:00 ne Annie Maurericia H 31626.1.1 ity of 3.412.2.7 [place] .3.079968 MD Jett [facility] 2021-07-13 2021-07-13 Travel 1.2.840.1 1.2.617.751 5018 [id number] Methodi 00:00:00 00:00:[address] 3.430.2.7 0.2.7.3.698 Ho spita .3.395742 084.8 l .8 2021-07-13 2021-07-13 Telephone Erasto, 1.2.840.1 [id number] 1089 [id number] Univers 00:00:00 00:00:00 Anca H 15888.1.1 it y of 3.412.2.7 [place] .3.150658 MD Jett [facility] 2021-07-13 2021-07-13 Jesse Desir, 1.2.840.1 [id number] Univers 00:00:00 00:00:00 Only Yumi 59756.1.1 ity of 3.412.2.7 [place] .3.170418 MD Jett [facility] 2021-07-13 2021-07-13 Telephone Erasto, 1.2.840.1 [id number] 1089 [id number] Univers 00:00:00 00:00:00 Anca H 15438.1.1 it y of 3.412.2.7 [place] .3.392081 MD .8 [facility] 2021-07-13 2021-07-13 Orders Thang 1.2.840.1 [id number] Univers 00:00:00 00:00:00 Only Yumi 93165.1.1 ity of 3.412.2.7 Donn .3.426955 .8 [facility] 2021-07-08 2021-07-12 [facility] 1.2.840.1 [id number] Univers 10:33:00 21:00:00 Encounter Sharlene Madrigal 89069.1.1 ity of [place] 3.412.2.7 Cintia Rubio .3.579981 MD Jackson8 [facility] 2021-07-08 2021-07-12 [facility] 1.2.[facility]1 [id number] Univers 10:33:00 21:00:00 Encounter Sharlene Madrigal 59623.1.1 ity of [place] 3.412.2.7 Cintia Rubio .3.092322 .8 [facility] 2021-07-12 2021-07-12 Eliza White 1.2.840.1 [id number] 10 [id number] Univers 00:00:00 00:00:00 Only 91473.1.1 ity of 3.412.2.7 Donn .3.200197 .8 [facility] 2021-07-12 2021-07-12 Eliza White 1.2.840.1 [id number] 10 [id number] Univers 00:00:00 00:00:00 Only 74681.1.1 ity of 3.412.2.7 Donn .3.801038 MD Jackson8 [facility] 2021-07-09 2021-07-09 Inpatient EL JUAN- LOLITA MCHUGH [id number] 14:37:39 15:13:17 Chucky ASKEW 2021-07-08 2021-07-08 [facility] Slava Ariza 1.2.840.1 [id number] Univers 09:19:33 10:32:00 Encounter Nick 00984.1.1 it y of 3.412.2.7 [place] .3.856811 MD Jett [facility] 2021-07-08 2021-07-08 [facility] 1.2.840.1 [id number] Univers 09:19:33 10:32:00 Encounter Nick 89484.1.1 it y of 3.412.2.7 [place] .3.860071 MD Jett [facility] 2021-07-08 2021-07-08 [facility] Slava Ariza 1.2.840.1 [id number] Univers 08:15:00 09:18:00 Encounter Nick 55573.1.1 it y of 3.412.2.7 [place] .3.990590 MD Jett [facility] 2021-07-08 2021-07-08 [facility] DOROTHY HarleenSlava patel 1.2.840.1 [id number] Univers 08:15:00 09:18:00 Encounter Nick 60859.1.1 it y of 3.412.2.7 [place] .3.271421 MD Jett [facility] 2021-07-08 2021-07-08 Travel 1.2.840.1 1.2.014.570 [id number] Univers 00:00:00 00:00:00 17924.1.1 350.1.13.41 ity of 3.412.2.7 [place].3.698 [place] .3.063816 084.8 MD Jett [facility] 2021-07-08 2021-07-08 Travel 1.2.840.1 1.2.816.957 [id number] [facility] 00:00:00 00:00:00 67708.1.1 350.1.13.41 ity of 3.412.2.[place]3.698 [place] .3.952241 084.8 MD Jett [facility] 2021-07-07 2021-07-07 [facility] 1.2.840.1 [id number] 10 [id number] Univers 20:19:41 23:59:00 Encounter Nick 74675.1.1 it y of 3.412.2.7 [place] .3.670979 MD Jackson8 [facility] 2021-07-07 2021-07-07 [facility] 1.2.840.1 [id number] Univers 20:19:41 23:59:00 Encounter Nick 24038.1.1 it y of 3.412.2.7 [place] .3.980217 MD Jett [facility] 2021-07-07 2021-07-07 [facility].2.840.1 [id number] 10 [id number] Univers 10:00:00 20:18:00 Encounter Nick 80595.1.1 it y of 3.412.2.7 [place] .3.396293 MD Jett [facility] 2021-07-07 2021-07-07 [facility] 1.2.840.1 [id number] Univers 10:00:00 20:18:00 Encounter Nick 99025.1.1 it y of 3.412.2.7 [place] .3.695241 MD Jett [facility] 2021-07-07 2021-07-07 [facility] 1.2.840.1 [id number] 10 [id number] Univers 09:45:00 09:59:00 Encounter Nick 41625.1.1 it y of 3.412.2.7 [place] .3.238663 MD Jett [facility] 2021-07-07 2021-07-07 [facility] 1.2.840.1 [id number] Univers 09:45:00 09:59:00 Encounter Nick 48891.1.1 it y of 3.412.2.7 [place] .3.028536 MD Jett [facility] 2021-07-07 2021-07-07 Jesse De La Rosa, 1.2.840.1 [id number] Univers 00:00:00 00:00:00 Only Alexnadra 78156.1.1 ity of 3.412.2.7 [place] .3.315659 MD Jett [facility] 2021-07-07 2021-07-07 Slava Monroy 1.2.840.1 [id number] [id number] Univers 00:00:00 00:00:00 Only Nick 29946.1.1 ity of 3.412.2.7 [place] .3.940176 MD [facility] 2021-07-07 2021-07-07 Travel 1.2.840.1 1.2.276.111 5644 [id number] Univers 00:00:00 00:00:00 49481.1.1 350.1.13.41 ity of 3.412.2.7 [place].3.698 [place] .3.036[place] 084.8 MD [facility] 2021-07-07 2021-07-07 Jesse De La Rosa 1.2.840.1 [id number] Univers 00:00:00 00:00:00 Only Alexandra 98958.1.1 ity of 3.412.2.7 [place] .3.751269 MD [facility] 2021-07-07 2021-07-07 Slava Monroy 1.2.840.1 [id number] 013 [id number] Univers 00:00:00 00:00:00 Only Nick 74688.1.1 ity of 3.412.2.7 [place] .3.819835 MD [facility] 2021-07-07 2021-07-07 Travel 1.2.840.1 1.2.117.417 6476 [id number] Univers 00:00:00 00:00:00 08148.1.1 350.1.13.41 ity of 3.412.2.7 [place].3.698 [place]3.4688[place] 084.8 MD [facility] 2021-07-06 2021-07-06 [facility] Slava Arizaon 1.2.840.1 1010 57441 [id number] Univers 11:21:54 23:59:00 Encounter Shwetha Swenson 61159.1.1 ity of 3.412.2.7 [place] .3.160617 MD [facility] 2021-07-06 2021-07-06 [facility] Slava Washburnon 1.2.840.1 1010 51994 [id number] Univers 11:21:54 23:59:00 Encounter Shwetha Swenson 50474.1.1 ity of 3.412.2.7 [place] .3.895255 MD [facility] 2021-07-06 2021-07-06 [facility] Slava Ariza Nick 1.2.840.1 101 [id number] Univers 15:00:00 22:23:25 Maame Cruz 10067.1.1 ity of 3.412.2.7 [place] .3.437048 MD [facility] 2021-07-06 2021-07-06 Nutrition Slava Washburnon 1.2.840.1 101 [id number] Univers 15:00:00 22:23:25 Maame Cruz 52625.1.1 ity of 3.412.2.7 [place] .3.600989 MD [facility] 2021-07-06 2021-07-06 Infusion Alexandra De La Rosa 1.2.840.1 [id number] 7 [id number] Univers 17:00:00 21:00:00 Ten [place] 75511.1.1 ity of 3.412.2.7 [place] .3.383489 MD [facility] 2021-07-06 2021-07-06 Infusion Alexandra Yan 1.2.840.1 [id number] 7 [id number] Univers 17:00:00 21:00:00 [place] Miguel 67872.1.1 ity of 3.412.2.7 [place] .3.766105 MD [facility] 2021-07-06 2021-07-06 Office Slava Ariza 1.2.840.1 00558 [id number] [id number] Univers 13:30:00 14:24:35 Visit Anca Maurer 86381.1.1 ity of 3.412.2.7 [place] .3.975502 MD [facility] 2021-07-06 2021-07-06 Office Slava Ariza 1.2.840.1 [id number] [id number] Univers 13:30:00 14:24:35 Visit Anca Maurer 15562.1.1 ity of 3.412.2.7 [place] .3.357690 MD [facility] 2021-07-06 2021-07-06 [facility] Slava Ariza 1.2.840.1 [id number] 10 [id number] Univers 09:27:40 11:20:00 Encounter Nick 68966.1.1 it y of 3.412.2.7 [place] .3.003981 MD [facility] 2021-07-06 2021-07-06 [facility] Slava Washburn 1.2.840.1 [id number] 10 [id number] Univers 09:27:40 11:20:00 Encounter Nick 99361.1.1 it y of 3.412.2.7 [place] .3.910002 MD [facility] 2021-07-06 2021[facility]06 [facility] 1.2.840.1 [id number] 10 [id number] Univers 08:45:00 09:26:00 Encounter Nick 08693.1.1 it y of 3.412.2.7 [place] .3.831951 MD [facility] 2021-07-06 2021-07-06 [facility] Slava Ariza 1.2.840.1 [id number] 10 [id number] Univers 08:45:00 09:26:00 Encounter Nick 07989.1.1 it y of 3.412.2.7 [place] .3.423396 MD [facility] 2021-07-06 2021-07-06 Jesse De La Rosa 1.2.840.1 [id number] Univers 00:00:00 00:00:00 Only Alexandra 30180.1.1 ity of 3.412.2.7 [place] .3.280980 MD [facility] 2021-07-06 2021-07-06 Jesse Castro 1.2.840.1 [id number] 04923 [id number] Univers 00:00:00 00:00:00 Only Wayne Samantha 15848.1.1 it y of 3.412.2.7 [place] .3.149371 MD [facility] 2021-07-06 2021-07-06 Jesse De La Rosa 1.2.840.1 [id number] 1528 Univers 00:00:00 00:00:00 Only Alexandra 55367.1.1 ity of 3.412.2.7 [place] .3.835618 MD [facility] 2021-07-06 2021-07-06 Travel 1.2.840.1 1.2.783.259 2263 [id number] Univers 00:00:00 00:00:00 90950.1.1 350.1.13.41 ity of 3.412.2.7 2.[place].7.3.698 [place]3.788665 084.8 MD [facility] 2021-07-06 2021-07-06 Jesse De La Rosa 1.2.840.1 [id number] Univers 00:00:00 00:00:00 Only Alexandra 71664.1.1 ity of 3.412.2.7 [place] .3.399264 MD [facility] 2021-07-06 2021-07-06 Jesse Castro 1.2.840.1 [id number] [id number] Univers 00:00:00 00:00:00 Only Wayne Singh 27137.1.1 it y of 3.412.2.7 [place] .3.461896 MD [facility] 2021-07-06 2021-07-06 Orders Rj, 1.2.840.1 [id number] Univers 00:00:00 00:00:00 Only Alexandra 14802.1.1 ity of 3.412.2.7 [place] .3.389794 MD [facility] 2021-07-06 2021-07-06 Travel 1.2.840.1 1.2.282.567 2351 [id number] Univers 00:00:00 00:00:00 18820.1.1 350.1.13.41 ity of 3.412.2.7 [place]7.3.698 [place]3.64[place] 08Ger [facility] 2021-07-05 2021-07-05 [facility] Slava 1.2.840.1 [id number] 10 [id number] Univers 09:07:24 23:59:00 Encounter Nick 21931.1.1 it y of 3.412.2.7 [place] .3.176847 MD [facility] 2021-07-05 2021-07-05 [facility] 1.2.840.1 [id number] 10 [id number] Univers 09:07:24 23:59:00 Encounter Nick 14498.1.1 it y of 3.412.2.7 [place] .3.320427 MD [facility] 2021-07-05 2021-07-05 Travel 1.2.840.1 1.2.384.542 5165 [id number] Univers 00:00:00 00:00:00 39628.1.1 350.1.13.41 ity of 3.412.2.7 2.[place]7.3.698 [place] .3.7511[place] 08Ger [facility] 2021-07-05 2021-07-05 Travel 1.2.840.1 1.2.933.093 9247 [id number] Univers 00:00:00 00:00:00 71914.1.1 350.1.13.41 ity of 3.412.2.7 [place]7.3.698 [place] .3.817205 084.8 MD [facility] 2021-07-04 2021-07-04 [facility] ThangYumi 1.2.840.1 [id number] Univers 12:15:00 23:59:00 Encounter Erica Gates 83440.1.1 ity of 3.412.2.7 [place] .3.210159 MD [facility] 2021-07-04 2021-07-04 [facility] DOROTHY Yumi Desir 1.2.840.1 [id number] Univers 12:15:00 23:59:00 Encounter Erica Gates 23566.1.1 ity of 3.412.2.7 [place] .3.533181 MD [facility] 2021-07-04 2021-07-04 [facility] 1.2.840.1 [id number] 10 [id number] Univers 09:23:55 12:14:00 Encounter Nick 47481.1.1 it y of 3.412.2.7 [place] .3.045734 MD [facility] 2021-07-04 2021-07-04 [facility] Slava Ariza 1.2.840.1 [id number] 10 [id number] Univers 09:23:55 12:14:00 Encounter Nick 36828.1.1 it y of 3.412.2.7 [place] .3.409798 MD [facility] 2021-07-04 2021-07-04 [facility] Thang 1.2.840.1 [id number] [id number] Univers 09:15:00 09:22:00 Encounter Yumi 29373.1.1 it y of 3.412.2.7 [place] .3.522655 MD [facility] 2021-07-04 2021-07-04 [facility], 1.2.840.1 [id number] 1087 [id number] Univers 09:15:00 09:22:00 Encounter Yumi 55724.1.1 it y of 3.412.2.7 [place] .3.959846 MD [facility] 2021-07-04 2021-07-04 Travel 1.2.840.1 1.2.736.757 3272 [id number] Univers 00:00:00 00:00:00 39394.1.1 350.1.13.41 ity of 3.412.2.7 [place]7.3.698 [place] .3.137112 084.8 MD [facility] 2021-07-04 2021-07-04 Travel 1.2.840.1 1.2.879.690 8990 [id number] Univers 00:00:00 00:00:00 93929.1.1 350.1.13.41 ity of 3.412.2.7 2.2[place]7.3.698 [place] .3.218591 084.8 MD [facility] 2021-07-01 2021-07-01 [facility] 1.2.840.1 [id number] 10 [id number] Univers 09:26:55 23:59:00 Encounter Nick 90472.1.1 it y of 3.412.2.7 [place] .3.261930 MD [facility] 2021-07-01 2021-07-01 [facility] Harleen Slava 1.2.840.1 [id number] 10 [id number] Univers 09:26:55 23:59:00 Encounter Nick 64767.1.1 it y of 3.412.2.7 [place] .3.587872 MD [facility] 2021-07-01 2021-07-01 [facility], 1.2.840.1 [id number] 70929 Univers 09:26:30 23:59:00 Encounter Alexandra 45379.1.1 it y of 3.412.2.7 [place] .3.065085 MD [facility]8 [facility] 2021-07-01 2021-07-01 Hospital DOROTHY De La Rosa, 1.2.840.1 [id number] [id number] Univers 09:26:30 23:59:00 Encounter Alexandra 34768.1.1 it y of 3.412.2.7 [place] .3.533050 MD [facility] 2021-07-01 2021-07-01 Travel 1.2.840.1 1.2.439.111 7615 [id number] Methodi 00:00:00 00:00:[address] 3.430.2.7 0.2.7.3.698 Ho spita .3.074247 084.8 l .8 2021-07-01 2021-07-01 Martin Glass 1.2.840.1 [id number] 2099 [id number] Methodi 00:00:00 00:00:[address] 3.430.2.7 Hospit a .3.914263 l .8 2021-07-01 2021-07-01 Documentat Cathleen, 1.2.840.1 [id number] Univers 00:00:00 00:00:00 ion Crista Micntosh 58219.1.1 ity of 3.412.2.7 [place] .3.739224 MD [facility] 2021-07-01 2021-07-01 Telephone Andkaitlynn, 1.2.840.1 [id number] 656 [id number] Univers 00:00:00 00:00:00 Caprice 55839.1.1 ity of Marisela 3.412.2.7 [place] .3.529839 MD [facility] 2021-07-01 2021-07-01 Jesse De La Rosa, 1.2.840.1 [id number] Univers 00:00:00 00:00:00 Only Alexandra 97497.1.1 ity of 3.412.2.7 [place] .3.626153 MD [facility] 2021-07-01 2021-07-01 Jesse De La Rosa, 1.2.840.1 [id number] 4754 Univers 00:00:00 00:00:00 Only Alexandra 28845.1.1 ity of 3.412.2.7 [place] .3.303320 MD [facility] 2021-07-01 2021-07-01 Travel 1.2.840.1 1.2.317.593 3352 [id number] Univers 00:00:00 00:00:00 33015.1.1 350.1.13.41 ity of 3.412.2.7 2.2[place]7.3.698 [place] .3.048531 084.8 MD [facility] 2021-07-01 2021-07-01 Documentat Connolly, 1.2.840.1 [id number] Univers 00:00:00 00:00:00 ion Crista L 80801.1.1 ity of 3.412.2.7 [place] .3.979109 MD [facility] 2021-07-01 2021-07-01 Telephone Andkaitlynn, 1.2.840.1 [id number] Univers 00:00:00 00:00:00 Caprice 01631.1.1 ity of [place] 3.412.2.7 [place] .3.009752 MD [facility] 2021-07-01 2021-07-01 Jesse De La Rosa 1.2.840.1 [id number] Univers 00:00:00 00:00:00 Only Alexandra 93009.1.1 ity of 3.412.2.7 [place] .3.507498 MD [facility] 2021-07-01 2021-07-01 Jesse De La Rosa 1.2.840.1 [id number] Univers 00:00:00 00:00:00 Only Alexandra 12397.1.1 ity of 3.412.2.7 [place] .3.850340 MD [facility] 2021-07-01 2021-07-01 Travel 1.2.840.1 1.2.284.011 0748 [id number] Univers 00:00:00 00:00:00 51751.1.1 350.1.13.41 ity of 3.412.2.7 2.[place]7.3.698 [place] .3.567366 084.8 MD [facility] 2021-06-30 2021-06-30 [facility] 1.2.840.1 [id number] 10 [id number] Univers 10:12:14 23:59:00 Encounter Nick 30789.1.1 it y of 3.412.2.7 [place] .3.823922 MD [facility] 2021-06-30 2021-06-30 [facility] 1.2.840.1 [id number] 10 [id number] Univers 10:12:14 23:59:00 Encounter Nick 82710.1.1 it y of 3.412.2.7 [place] .3.469857 MD [facility] 2021-06-30 2021-06-30 Orders Erasto, 1.2.840.1 [id number] Univers 00:00:00 00:00:00 Only Anca H 18940.1.1 it y of 3.412.2.7 [place] .3.567672 MD [facility] 2021-06-30 2021-06-30 Travel 1.2.840.1 1.2.403.628 0862 [id number] Univers 00:00:00 00:00:00 17707.1.1 350.1.13.41 ity of 3.412.2.7 2.2[place]7.3.698 [place] .3.430078 084.8 MD [facility] 2021-06-30 2021-06-30 Orders Erasto, 1.2.840.1 [id number] Univers 00:00:00 00:00:00 Only Anca H 79179.1.1 it y of 3.412.2.7 [place] .3.223276 MD [facility] 2021-06-30 2021-06-30 Travel 1.2.840.1 1.2.377.186 2729 [id number] Univers 00:00:00 00:00:00 45062.1.1 350.1.13.41 ity of 3.412.2.7 2.[place]7.3.698 [place] .3.346934 084.8 MD [facility] 2021-06-29 2021-06-29 [facility] Slava Ariza 1.2.840.1 [id number] 10 [id number] Univers 09:21:07 23:59:00 Encounter Nick 04363.1.1 it y of 3.412.2.7 [place] .3.507037 MD [facility] 2021-06-29 2021-06-29 [facility] Slava Washburn 1.2.840.1 [id number] 10 [id number] Univers 09:21:07 23:59:00 Encounter Nick 54025.1.1 it y of 3.412.2.7 [place] .3.850378 MD [facility] 2021-06-29 2021-06-29 Outpatient SLAVA WASHBURN [facility] [id number] [place] 16:04:56 16:04:56 [facility] 2021-06-29 2021-06-29 Office Girish Barahona.2.840.1 [id number] Univers 13:00:00 13:30:00 Visit Yumi 26692.1.1 ity of 3.412.2.7 [place] .3.991975 MD [facility] 2021-06-29 2021-06-29 Office Aneesh Desir2.840.1 [id number] Univers 13:00:00 13:30:00 Visit Yumi 88184.1.1 ity of 3.412.2.7 [place] .3.898957 MD [facility] 2021-06-29 2021-06-29 [facility] Slava Washburn 1.2.840.1 [id number] 10 [id number] Univers 09:20:50 09:20:50 Encounter Nick 48234.1.1 it y of 3.412.2.7 [place] .3.716064 MD [facility] 2021-06-29 2021-06-29 Slava Jean 1.2.840.1 [id number] 10 [id number] Univers 09:20:50 09:20:50 Encounter Nick 91423.1.1 it y of 3.412.2.7 [place] .3.515504 MD [facility] 2021-06-29 2021-06-29 Slava Monroy 1.2.840.1 [id number] [id number] Univers 00:00:00 00:00:00 Only Nick 36470.1.1 ity of 3.412.2.7 [place] .3.153088 MD [facility] 2021-06-29 2021-06-29 Documentat Maame Cruz 1.2.840.1 [id number] Univers 00:00:00 00:00:00 ion K 06316.1.1 ity of 3.412.2.7 [place] .3.033958 MD [facility] 2021-06-29 2021-06-29 Jesse De La Rosa, 1.2.840.1 [id number] Univers 00:00:00 00:00:00 Only Alexandra 39372.1.1 ity of 3.412.2.7 [place] .3.832109 MD [facility] 2021-06-29 2021-06-29 Travel 1.2.840.1 1.2.469.809 2944 [id number] Univers 00:00:00 00:00:00 15389.1.1 350.1.13.41 ity of 3.412.2.7 2.2[place]7.3.698 [place] .3.627057 084.8 MD [facility] 2021-06-29 2021-06-29 Slava Monroy 1.2.840.1 [id number] 947 [id number] Univers 00:00:00 00:00:00 Only Nick 06993.1.1 ity of 3.412.2.7 [place] .3.722885 MD [facility] 2021-06-29 2021-06-29 Documentat NancyMaame 1.2.840.1 [id number] Univers 00:00:00 00:00:00 ion K 00007.1.1 ity of 3.412.2.7 [place] .3.603331 MD [facility] 2021-06-29 2021-06-29 Jesse De La Rosa 1.2.840.1 [id number] Univers 00:00:00 00:00:00 Only Alexandra 76620.1.1 ity of 3.412.2.7 [place] .3.767704 MD [facility] 2021-06-29 2021-06-29 Travel 1.2.840.1 1.2.226.788 2113 [id number] Univers 00:00:00 00:00:00 40197.1.1 350.1.13.41 ity of 3.412.2.7 2.2[place]7.3.698 [place] .3.738009 084.8 MD [facility] 2021-06-28 2021-06-28 [facility] Slava Washburn 1.2.840.1 [id number] 10 [id number] Univers 13:24:55 23:59:00 Encounter Nick 98597.1.1 it y of 3.412.2.7 [place] .3.678146 MD [facility] 2021-06-28 2021-06-28 Slava Jean 1.2.840.1 [id number] 10 [id number] Univers 13:24:55 23:59:00 Encounter Nick 53565.1.1 it y of 3.412.2.7 [place] .3.584563 MD [facility] 2021-06-28 2021-06-28 Travel 1.2.840.1 1.2.185.196 5966 [id number] Univers 00:00:00 00:00:00 93945.1.1 350.1.13.41 ity of 3.412.2.7 2.2.7.3.698 [place] .3.933573 084.8 MD [facility] 2021-06-28 2021-06-28 Travel 1.2.840.1 1.2.355.360 1010 [id number] Univers 00:00:00 00:00:00 17789.1.1 350.1.13.41 ity of 3.412.2.7 2.2.7.3.698 [place] .3.062947 084.8 MD [facility] 2021-06-27 2021-06-27 [facility] Slava Washburn 1.2.840.1 [id number] 10 [id number] Univers 08:51:26 23:59:00 Encounter Nick 14966.1.1 it y of 3.412.2.7 [place] .3.061223 MD [facility] 2021-06-27 2021-06-27 [facility] Slava Ariza 1.2.840.1 [id number] 10 [id number] Univers 08:51:26 23:59:00 Encounter Nick 51039.1.1 it y of 3.412.2.7 [place] .3.411594 MD [facility] 2021-06-27 2021-06-27 Infusion Yumi Barahona 1.2.840.1 [id number] Univers 10:00:00 14:00:00 Christy Singh 23373.1.1 ity of 3.412.2.7 [place] .3.782701 MD [facility] 2021-06-27 2021-06-27 Infusion Yumi Desir 1.2.840.1 [id number] Univers 10:00:00 14:00:00 Christy Singh 69579.1.1 ity of 3.412.2.7 [place] .3.354634 MD [facility] 2021-06-27 2021-06-27 Hospital DOROTHY Desir, 1.2.840.1 [id number] 1087 [id number] Univers 07:30:00 08:50:00 Encounter Yumi 11627.1.1 it y of 3.412.2.7 [place] .3.695437 MD [facility] 2021-06-27 2021-06-27 [facility] Thang, 1.2.840.1 [id number] 1087 [id number] Univers 07:30:00 08:50:00 Encounter Yumi 87257.1.1 it y of 3.412.2.7 [place] .3.299350 MD [facility] 2021-06-27 2021-06-27 Travel 1.2.840.1 1.2.197.936 0070 850492 Univers 00:00:00 00:00:00 98105.1.1 350.1.13.41 ity of 3.412.2.7 2.2[place]7.3.698 [place] .3.586794 084.8 MD [facility] 2021-06-27 2021-06-27 Travel 1.2.840.1 1.2.492.062 7176 [id number] Univers 00:00:00 00:00:00 89133.1.1 350.1.13.41 ity of 3.412.2.7 2.2[place]7.3.698 [place] .3.704782 084.8 MD [facility] 2021-06-24 2021-06-24 [facility] Slava Washburn 1.2.840.1 1010 28855 [id number] Univers 12:42:26 23:59:00 Encounter Candy Churchill 07334.1.1 ity of 3.412.2.7 [place] .3.024651 MD [facility] 2021-06-24 2021-06-24 [facility] Slava Ariza 1.2.840.1 1010 45463 [id number] Univers 12:42:26 23:59:00 Encounter Candy Churchill 76422.1.1 ity of 3.412.2.7 [place] .3.037572 MD [facility] 2021-06-24 2021-06-24 [facility] Slava Washburn 1.2.840.1 [id number] 10 [id number] Univers 10:45:00 12:41:00 Encounter Nick 40489.1.1 it y of 3.412.2.7 [place] .3.550652 MD [facility] 2021-06-24 2021-06-24 [facility] 1.2.840.1 [id number] 10 [id number] Univers 10:45:00 12:41:00 Encounter Nick 18409.1.1 it y of 3.412.2.7 [place] .3.372500 MD [facility] 2021-06-24 2021-06-24 Office Padmini 1.2.840.1 [id number] Methodshanna 09:00:00 09:15:00 Visit eVnkat Lowe 04465.1.[address] 3.430.2.7 Hospit a .3.832864 kelsey .8 2021-06-24 2021-06-24 Travel 1.2.840.1 1.2.974.327 6096 [id number] Univers 00:00:00 00:00:00 91720.1.1 350.1.13.41 ity of 3.412.2.7 2.2[place]7.3.698 [place] .3.277417 084.8 MD [facility] 2021-06-24 2021-06-24 Orders Thang 1.2.840.1 [id number] 98470 69265 Univers 00:00:00 00:00:00 Only Yumi 95426.1.1 ity of 3.412.2.7 [place] .3.459522 MD [facility] 2021-06-24 2021-06-24 Travel 1.2.840.1 1.2.737.829 9771 084307 Methodi 00:00:00 00:00:[address] 3.430.2.7 0.2.7.3.698 Ho spita .3.987562 084.8 kelsey .8 2021-06-24 2021-06-24 Travel 1.2.840.1 1.2.894.618 0045 [id number] Univers 00:00:00 00:00:00 35243.1.1 350.1.13.41 ity of 3.412.2.7 2.2[place]7.3.698 [place] .3.569704 084.8 MD [facility] 2021-06-24 2021-06-24 Jesse Desir 1.2.840.1 [id number] Univers 00:00:00 00:00:00 Only Yumi 21583.1.1 ity of 3.412.2.7 [place] .3.280245 MD [facility] 2021-06-24 2021-06-24 Outpatient [facility] [id number] [place] 00:00:00 00:00:[address] 2021-06-23 2021-06-23 [facility].1 [id number] 10 [id number] Univers 10:41:38 23:59:00 Encounter Nick 39826.1.1 it y of 3.412.2.7 [place] .3.270406 MD [facility] 2021-06-23 2021-06-23 [facility]2.[facility] [id number] 10 [id number] Univers 10:41:38 23:59:00 Encounter Nick 60457.1.1 it y of 3.412.2.7 [place] .3.886441 MD [facility] 2021-06-23 2021-06-23 [facility] 1.2.840.1 [id number] 10 [id number] Univers 10:30:12 10:40:00 Encounter Nick 77100.1.1 it y of 3.412.2.7 [place] .3.003670 MD [facility] 2021-06-23 2021-06-23 Slava Jean 1.2.840.1 [id number] 10 [id number] Univers 10:30:12 10:40:00 Encounter Nick 52160.1.1 it y of 3.412.2.7 [place] .3.334408 MD [facility] 2021-06-23 2021-06-23 Travel 1.2.840.1 1.2.264.809 5169 [id number] Univers 00:00:00 00:00:00 43971.1.1 350.1.13.41 ity of 3.412.2.[place].3.698 [place] .3.742161 084.8 MD Jett [facility] 2021-06-23 2021-06-23 Documentat Maame Cruz 1.2.840.1 [id number] Univers 00:00:00 00:00:00 [place] [address].1.1 ity of 3.412.2.7 [place] .3.867119 MD Jett [facility] 2021-06-23 2021-06-23 Orders Erasto, 1.2.840.1 [id number] Univers 00:00:00 00:00:00 Only Anca H 43862.1.1 it y of 3.412.2.7 [place] .3.254089 MD Jett [facility] 2021-06-23 2021-06-23 Travel 1.2.840.1 1.2.915.622 1058 [id number] Univers 00:00:00 00:00:00 31829.1.1 350.1.13.41 ity of 3.412.2.[place]3.698 [place] .3.337956 084.8 MD Jett [facility] 2021-06-23 2021-06-23 Documentat Maame Cruz 1.2.840.1 [id number] Univers 00:00:00 00:00:00 [place] K 55884.1.1 ity of 3.412.2.7 [place] .3.575207 MD Jackson8 [facility] 2021-06-23 2021-06-23 Orders Erasto, 1.2.840.1 [id number] Univers 00:00:00 00:00:00 Only Anca Sullivan 50051.1.1 it y of 3.412.2.7 [place] .3.206771 MD Jackson8 [facility] 2021-06-22 2021-06-22 Emergency ER Jerel, 1.2.840.1 [id number] Univers 11:11:00 20:15:00 Bela 17087.1.1 ity of 3.412.2.7 [place] .3.071200 MD Jackson8 [facility] 2021-06-22 2021-06-22 Emergency Jerel, 1.2.840.1 [id number] 10 [id number] Univers 11:11:00 20:15:00 Bela 57946.1.1 ity of 3.412.2.7 [place] .3.199112 MD Jackson8 [facility] 2021-06-22 [facility] [id number] 10 [id number] Univers 09:50:00 11:10:00 Encounter Nick 51428.1.1 it y of 3.412.2.7 [place] .3.108256 MD Jackson8 [facility] 2021-06-22 2021-06-22 [facility] 1.2.840.1 [id number] Univers 09:50:00 11:10:00 Encounter Nick 31263.1.1 it y of 3.412.2.7 [place] .3.558739 MD Jackson8 [facility] 2021-06-22 2021-06-22 Travel 1.2.840.1 1.2.356.871 0049 [id number] Univers 00:00:00 00:00:00 42701.1.1 350.1.13.41 ity of 3.412.2.7 [place]3.698 [place] .3.277348 084.8 MD Jackson8 [facility] 2021-06-22 2021-06-22 Travel 1.2.840.1 1.2.694.530 1810 [id number] Methodi 00:00:00 00:00:[address] 3.430.2.7 0.2.7.3.698 Ho spita .3.579963 084.8 l .8 2021-06-22 2021-06-22 Travel 1.2.840.1 1.2.828.510 8008 [id number] Univers 00:00:00 00:00:00 63887.1.1 350.1.13.41 ity of 3.412.2.[place]3.698 [place] .3.162960 084.8 MD Jackson8 [facility] 2021-06-21 2021-06-21 [facility] Slava Washburn 1.2.840.1 [id number] Univers 08:00:52 23:59:00 Encounter Nick 10521.1.1 it y of 3.412.2.7 [place] .3.296620 MD Jett [facility] 2021-06-21 2021-06-21 [facility] Slava Ariza 1.2.840.1 [id number] Univers 08:00:52 23:59:00 Encounter Nick 87052.1.1 it y of 3.412.2.7 [place] .3.920097 MD Jett [facility] 2021-06-21 2021-06-21 [facility] Alexandra Yan 1.2.840.1 [id number] Univers 07:58:46 07:59:00 Encounter Slava Ariza 51697.1.1 ity of 3.412.2.7 [place] .3.397658 MD Jett [facility] 2021-06-21 2021-06-21 [facility] Alexandra De La Rosa 1.2.840.1 [id number] Univers 07:58:46 07:59:00 Slava Samaniego 08264.1.1 ity of 3.412.2.7 [place] .3.376060 MD Jett [facility] 2021-06-21 2021-06-21 Documentat Slava Ariza 1.2.840.1 [id number] Univers 00:00:00 00:00:00 ladi Romero 15605.1.1 ity of 3.412.2.7 [place] .3.530925 MD Jackson8 [facility] 2021-06-21 2021-06-21 Travel 1.2.840.1 1.2.700.235 9506 [id number] Univers 00:00:00 00:00:00 08707.1.1 350.1.13.41 ity of 3.412.2.7 [place]7.3.698 [place] .3.556693 084.8 MD Jett [facility] 2021-06-21 2021-06-21 Documentat Slava Ariza 1.2.840.1 [id number] Univers 00:00:00 00:00:00 ladi Romero 28537.1.1 ity of 3.412.2.7 [place] .3.346390 MD Jett [facility] 2021-06-21 2021-06-21 Travel 1.2.840.1 1.2.939.409 8470 [id number] Univers 00:00:00 00:00:00 68625.1.1 350.1.13.41 ity of 3.412.2.7 [place]3.698 [place] .3.917085 084.8 MD Jett [facility] 2021-06-20 2021-06-20 [facility] Yumi Barahona 1.2.840.1 [id number] Univers 08:14:09 23:59:00 [place] 94713.1.1 ity of 3.412.2.7 [place] .3.654079 MD Jackson8 [facility] 2021-06-20 2021-06-20 Hospital Yumi Desir 1.2.840.1 [id number] Univers 08:14:09 23:59:00 Encounter Sam Wilson 63968.1.1 ity of 3.412.2.7 [place] .3.509912 MD Jackson8 [facility] 2021-06-20 2021-06-20 [facility] DOROTHY Desir, 1.2.840.1 [id number] Univers 07:58:43 08:13:00 Encounter Yumi 62491.1.1 it y of 3.412.2.7 [place] .3.927449 MD Jackson8 [facility] 2021-06-20 2021-06-20 [facility] Thang, 1.2.840.1 [id number] 1087 [id number] Univers 07:58:43 08:13:00 Encounter Yumi 30373.1.1 it y of 3.412.2.7 [place] .3.891152 MD Jett [facility] 2021-06-20 2021-06-20 Travel 1.2.840.1 1.2.803.913 3232 [id number] Univers 00:00:00 00:00:00 33814.1.1 350.1.13.41 ity of 3.412.2.7 [place].3.698 [place]3.061801 084.8 MD Jett [facility] 2021-06-20 2021-06-20 Travel 1.2.840.1 1.2.962.394 8648 [id number] Univers 00:00:00 00:00:00 07859.1.1 350.1.13.41 ity of 3.412.2.7 [place]7.3.698 [place] .3.776[place] 084.8 MD Jett [facility] 2021-06-17 2021-06-17 [facility] Slava Washburn 1.2.840.1 [id number] 10 [id number] Univers 11:45:00 23:59:00 Encounter Nick 02260.1.1 it y of 3.412.2.7 [place] .3.063779 MD [facility]8 [facility] 2021-06-17 2021-06-17 [facility] Slava Ariza 1.2.840.1 [id number] 10 [id number] Univers 11:45:00 23:59:00 Encounter Nick 78999.1.1 it y of 3.412.2.7 [place] .3.601861 MD Jackson8 [facility] 2021-06-17 2021-06-17 Jesse Polk 1.2.840.1 [id number] Univers 00:00:00 00:00:00 Only Alyse 16900.1.1 [place] .3.412758 MD [facility]8 [facility] 2021-06-17 2021-06-17 Jesse De La Rosa 1.2.840.1 [id number] Univers 00:00:00 00:00:00 Only Alexandra 47806.1.1 ity of 3.412.2.7 [place] .3.446834 MD Jett [facility] 2021-06-17 2021-06-17 Travel 1.2.840.1 1.2.872.928 2695 [id number] Univers 00:00:00 00:00:00 11207.1.1 350.1.13.41 ity of 3.412.2.7 [place]7.3.698 [place] .3.525301 084.8 MD Jett [facility] 2021-06-17 2021-06-17 Jesse Polk 1.2.840.1 [id number] Univers 00:00:00 00:00:00 Only Alyse 06617.1.1 [place] .3.230311 MD Jett [facility] 2021-06-17 2021-06-17 Jesse De La Rosa 1.2.840.1 [id number] Univers 00:00:00 00:00:00 Only Alexandra 44244.1.1 ity of 3.412.2.7 [place] .3.108893 MD Jett [facility] 2021-06-17 2021-06-17 Travel 1.2.840.1 1.2.515.425 4974 [id number] Univers 00:00:00 00:00:00 62112.1.1 350.1.13.41 ity of 3.412.2.7 [place]7.3.698 [place]3.331337 084.8 MD Jett [facility] 2021-06-16 2021-06-16 [facility] Slava Washburn 1.2.840.1 [id number] 10 [id number] Univers 11:42:10 23:59:00 Encounter iNck 20739.1.1 it y of 3.412.2.7 [place] .3.538038 MD Jett [facility] 2021-06-16 2021-06-16 [facility] Slava Ariza 1.2.840.1 [id number] 10 [id number] Univers 11:42:10 23:59:00 Encounter Nick 77627.1.1 it y of 3.412.2.7 [place] .3.498501 MD Jett [facility] 2021-06-16 2021-06-16 Outpatient SLAVA WASHBURN [facility] [id number] 16:11:01 16:11:01 [facility] 2021-06-16 2021-06-16 Travel 1.2.840.1 1.2.808.116 4104 [id number] Univers 00:00:00 00:00:00 47675.1.1 350.1.13.41 ity of 3.412.2.7 2.2.7.3.698 [place] .3.534640 084.8 MD Jett [facility] 2021-06-16 2021-06-16 Travel 1.2.840.1 1.2.923.704 4667 [id number] Univers 00:00:00 00:00:00 70673.1.1 350.1.13.41 ity of 3.412.2.7 2.[place]7.3.698 [place] .3.732725 084.8 MD [facility]8 [facility] 2021-06-15 2021-06-15 [facility] Ene Roberts 1.2.840.1 [id number] Univers 10:37:55 23:59:00 Encounter Christy Chavez 68085.1.1 ity of 3.412.2.7 [place] .3.147304 MD [facility]8 [facility] 2021-06-15 2021-06-15 [facility] Ene Polk 1.2.840.1 [id number] Univers 10:37:55 23:59:00 Encounter Christy Chavez 95713.1.1 ity of 3.412.2.7 [place] .3.797362 MD Jackson8 [facility] 2021-06-15 2021-06-15 Office Slava Washburn 1.2.840.1 [id number] Univers 13:00:00 14:11:36 Visit Anca Maurer 35789.1.1 ity of 3.412.2.7 [place] .3.605015 MD Jackson8 [facility] 2021-06-15 2021-06-15 Office Slava Ariza 1.2.840.1 17901 [id number] [id number] Univers 13:00:00 14:11:36 Visit Anca Maurer 96431.1.1 ity of 3.412.2.7 [place] .3.576788 MD Jackson8 [facility] 2021-06-15 2021-06-15 [facility] Slava Washburn 1.2.840.1 [id number] 10 [id number] Univers 08:16:55 10:36:00 Encounter Nick 54505.1.1 it y of 3.412.2.7 [place] .3.838881 MD Jackson8 [facility] 2021-06-15 2021-06-15 [facility] Slava Ariza 1.2.840.1 [id number] 10 [id number] Univers 08:16:55 10:36:00 Encounter Nick 62705.1.1 it y of 3.412.2.7 [place] .3.228351 MD Jackson8 [facility] 2021-06-15 2021-06-15 [facility] Slava Washburn 1.2.840.1 [id number] 10 [id number] Univers 07:19:30 08:15:00 Encounter Nick 98808.1.1 it y of 3.412.2.7 [place] .3.183941 MD Jackson8 [facility] 2021-06-15 2021[facility]-15 [facility] 1.2.840.1 [id number] 10 [id number] Univers 07:19:30 08:15:00 Encounter Nick 79312.1.1 it y of 3.412.2.7 [place] .3.913871 MD Jackson8 [facility] 2021-06-15 2021-06-15 Documentat Maame Cruz 1.2.840.1 [id number] Univers 00:00:00 00:00:00 ion K 62509.1.1 ity of 3.412.2.7 [place] .3.089821 MD Jackson8 [facility] 2021-06-15 2021-06-15 [facility] Slava Ariza 1.2.840.1 [id number] Univers 00:00:00 00:00:00 Only Nick 43878.1.1 ity of 3.412.2.7 [place] .3.473483 MD Jett [facility] 2021-06-15 2021-06-15 Jesse Castro 1.2.840.1 [id number] [id number] Univers 00:00:00 00:00:00 Only Wayne M 84411.1.1 it y of 3.412.2.7 [place] .3.783396 MD Jett [facility] 2021-06-15 2021-06-15 Travel 1.2.840.1 1.2.421.871 9209 [id number] Univers 00:00:00 00:00:00 16391.1.1 350.1.13.41 ity of 3.412.2.7 2.[place]7.3.698 [place] .3.823643 084.8 MD Jett [facility] 2021-06-15 2021-06-15 Documentat Maame Cruz 1.2.840.1 [id number] Univers 00:00:00 00:00:00 ion K 92922.1.1 ity of 3.412.2.7 [place] .3.987654 MD Jett [facility] 2021-06-15 2021-06-15 Slava Monroy 1.2.840.1 [id number] 027 [id number] Univers 00:00:00 00:00:00 Only Nick 76631.1.1 ity of 3.412.2.7 [place] .3.811862 MD Jett [facility] 2021-06-15 2021-06-15 Jesse Castro 1.2.840.1 [id number] 75614 [id number] Univers 00:00:00 00:00:00 Only Wayne M 04775.1.1 it y of 3.412.2.7 [place] .3.620903 MD Jett [facility] 2021-06-15 2021-06-15 Travel 1.2.840.1 1.2.104.944 0121 [id number] Univers 00:00:00 00:00:00 54772.1.1 350.1.13.41 ity of 3.412.2.7 2.[place].7.3.698 [place]3.605730 084.8 MD Jett [facility] 2021-06-14 2021-06-14 Slava Juarez 1.2.840.1 [id number] 10 [id number] Univers 20:31:13 23:59:00 Encounter Nick 44357.1.1 it y of 3.412.2.7 [place] .3.328181 MD Jett [facility] 2021-06-14 2021-06-14 Antonio Alemann, Slava 1.2.840.1 [id number] 10 [id number] Univers 20:31:13 23:59:00 Encounter Nick 80248.1.1 it y of 3.412.2.7 [place] .3.890045 MD Jackson8 [facility] 2021-06-14 2021-06-14 [facility] Slava Washburn 1.2.840.1 [id number] 10 [id number] Univers 08::28 20:30:00 Encounter Nick 24924.1.1 it y of 3.412.2.7 [place] .3.376298 MD Jackson8 [facility] 2021-06-14 2021-06-14 [facility] Slava Ariza 1.2.840.1 [id number] 10 [id number] Univers 08::28 20:30:00 Encounter Nick 05455.1.1 it y of 3.412.2.7 [place] .3.972820 MD Jett [facility] 2021-06-14 2021-06-14 Travel 1.2.840.1 1.2.111.526 7313 [id number] Univers 00:00:00 00:00:00 75385.1.1 350.1.13.41 ity of 3.412.2.7 2.[place]7.3.698 [place] .3.051042 084.8 MD Jett [facility] 2021-06-14 2021-06-14 Travel 1.2.840.1 1.2.190.128 2051 [id number] Univers 00:00:00 00:00:00 75371.1.1 350.1.13.41 ity of 3.412.2.7 2.2.7.3.698 [place] .3.050233 084.8 MD Jett [facility] 2021-06-13 2021-06-13 [facility] Yumi Barahona 1.2.840.1 [id number] Univers 09:15:00 23:59:00 Encounter Yue Alaniz 20673.1.1 ity of 3.412.2.7 [place] .3.969786 MD [facility]8 [facility] 2021-06-13 2021-06-13 [facility] Yumi Desir 1.2.840.1 [id number] Univers 09:15:00 23:59:00 Encounter AlanizYue 42933.1.1 ity of 3.412.2.7 [place] .3.987639 MD [facility]8 [facility] 2021-06-13 2021-06-13 [facility] 1.2.840.1 [id number] 10 [id number] Univers 08:20:58 09:14:00 Encounter Nick 34275.1.1 it y of 3.412.2.7 [place] .3.417134 MD Jackson8 [facility] 2021-06-13 2021-06-13 [facility]1 [id number] 10 [id number] Univers 08:20:58 09:14:00 Encounter Nick 37611.1.1 it y of 3.412.2.7 [place] .3.435588 MD Jackson8 [facility] 2021-06-13 2021-06-13 [facility]1 [id number] 10 [id number] Univers 08:08:42 08:19:00 Encounter Nick 88455.1.1 it y of 3.412.2.7 [place] .3.358305 MD Jackson8 [facility] 2021-06-13 2021-06-13 [facility] 1.2.840.1 [id number] 10 [id number] Univers 08:08:42 08:19:00 Encounter Nick 17958.1.1 it y of 3.412.2.7 [place] .3.328438 MD Jackson8 [facility] 2021-06-13 2021-06-13 [facility] DOROTHY Desir 1.2.840.1 [id number] [id number] Univers 06:30:00 08:07:00 Encounter Yumi 22622.1.1 it y of 3.412.2.7 [place] .3.499876 MD Jett [facility] 2021-06-13 2021-06-13 [facility] Thang, 1.2.840.1 [id number] 1087 [id number] Univers 06:30:00 08:07:00 Encounter Yumi 92457.1.1 it y of 3.412.2.7 [place] .3.872681 MD Jackson8 [facility] 2021-06-13 2021-06-13 Jesse De La Rosa, 1.2.840.1 [id number] Univers 00:00:00 00:00:00 Only Alexandra 59664.1.1 ity of 3.412.2.7 [place] .3.438634 MD Jackson8 [facility] 2021-06-13 2021-06-13 Jesse De La Rosa, 1.2.840.1 [id number] Univers 00:00:00 00:00:00 Only Alexandra 74297.1.1 ity of 3.412.2.7 [place] .3.114307 MD Jett [facility] 2021-06-13 2021-06-13 Travel 1.2.840.1 1.2.349.117 1801 [id number] Univers 00:00:00 00:00:00 89550.1.1 350.1.13.41 ity of 3.412.2.7 2.2.7.3.698 [place] .3.826753 084.8 MD Jett [facility] 2021-06-13 2021-06-13 Jesse De La Rosa, 1.2.840.1 [id number] Univers 00:00:00 00:00:00 Only Alexandra 89450.1.1 ity of 3.412.2.7 [place] .3.846270 MD Jett [facility] 2021-06-13 2021-06-13 Jesse De La Rosa 1.2.840.1 [id number] Univers 00:00:00 00:00:00 Only Alexandra 41138.1.1 ity of 3.412.2.7 [place] .3.336818 MD Jett [facility] 2021-06-13 2021-06-13 Travel 1.2.840.1 1.2.583.064 6565 [id number] Univers 00:00:00 00:00:00 91154.1.1 350.1.13.41 ity of 3.412.2.7 2.2[place]7.3.698 [place] .3.366405 084.8 MD Jett [facility] 2021-06-10 2021-06-10 [facility] Slava Washburn 1.2.840.1 [id number] 10 [id number] Univers 09:48:20 23:59:00 Encounter Nick 15904.1.1 it y of 3.412.2.7 [place] .3.037748 MD Jett [facility] 2021-06-10 2021-06-10 [facility] 1.2.840.1 [id number] 10 [id number] Univers 09:48:20 23:59:00 Encounter Nick 46451.1.1 it y of 3.412.2.7 [place] .3.917256 MD Jett [facility] 2021-06-10 2021-06-10 Travel 1.2.840.1 1.2.813.712 9969 [id number] Univers 00:00:00 00:00:00 50030.1.1 350.1.13.41 ity of 3.412.2.7 2.2.7.3.698 [place] .3.082896 084.8 MD Jett [facility] 2021-06-10 2021-06-10 Travel 1.2.840.1 1.2.334.013 2562 [id number] Univers 00:00:00 00:00:00 06632.1.1 350.1.13.41 ity of 3.412.2.7 2.2.7.3.698 [place] .3.377743 084.8 MD Jett [facility] 2021-06-09 2021-06-09 [facility] Slava Washburn 1.2.840.1 [id number] 10 [id number] Univers 08:15:00 23:59:00 Encounter Nick 22359.1.1 it y of 3.412.2.7 [place] .3.353320 MD Jett [facility] 2021-06-09 2021-06-09 [facility] Slava Ariza 1.2.840.1 [id number] 10 [id number] Univers 08:15:00 23:59:00 Encounter Nick 11407.1.1 it y of 3.412.2.7 [place] .3.907409 MD Jett [facility] 2021-06-09 2021-06-09 Travel 1.2.840.1 1.2.474.437 5483 [id number] Univers 00:00:00 00:00:00 67442.1.1 350.1.13.41 ity of 3.412.2.7 2.2.7.3.698 [place] .3.535193 084.8 MD Jett [facility] 2021-06-09 2021-06-09 Travel 1.2.840.1 1.2.182.148 7938 [id number] Univers 00:00:00 00:00:00 58799.1.1 350.1.13.41 ity of 3.412.2.7 2.2.7.3.698 [place] .3.009735 084.8 MD Jett [facility] 2021-06-08 2021-06-08 [facility] Slava Washburn 1.2.840.1 [id number] 10 [id number] Univers 20:55:35 23:59:00 Encounter Nick 65520.1.1 it y of 3.412.2.7 [place] .3.810999 MD Jett [facility] 2021-06-08 2021-06-08 [facility] Slava Ariza 1.2.840.1 [id number] 10 [id number] Univers 20:55:35 23:59:00 Encounter Nick 26997.1.1 it y of 3.412.2.7 [place] .3.908799 MD Jett [facility] 2021-06-08 2021-06-08 [facility] Slava Washburn 1.2.840.1 [id number] 10 [id number] Univers 13:28:31 20:54:00 Encounter Nick 92481.1.1 it y of 3.412.2.7 [place] .3.164405 MD Jackson8 [facility] 2021-06-08 2021-06-08 [facility] Slava Ariza 1.2.840.1 [id number] 10 [id number] Univers 13:28:31 20:54:00 Encounter Nick 53986.1.1 it y of 3.412.2.7 [place] .3.027213 MD Jackson8 [facility] 2021-06-08 2021-06-08 Outpatient SLAVA WASHBURN [facility] [id number] 16:41:38 16:41:38 [facility] 2021-06-08 2021-06-08 [facility] Alexandra Yan 1.2.840.1 [id number] Univers 10:37:41 13:27:00 Encounter Crista Connolly 57289.1.1 ity of 3.412.2.7 [place] .3.956685 MD Jackson8 [facility] 2021-06-08 2021-06-08 [facility] Rj Alexandra 1.2.840.1 [id number] Univers 10:37:41 13:27:00 Encounter Crista Connolly 64713.1.1 ity of 3.412.2.7 [place] .3Manuel131011 MD Jackson8 [facility] 2021-06-08 2021-06-08 Office DOROTHY Desir 1.2.840.1 [id number] Univers 09:30:00 10:00:00 Visit Yumi 11822.1.1 ity of 3.412.2.7 [place] .3Manuel972453 MD Jackson8 [facility] 2021-06-08 2021-06-08 Office Thang 1.2.840.1 [id number] Univers 09:30:00 10:00:00 Visit Yumi 99498.1.1 ity of 3.412.2.7 [place] .3.399060 MD Jackson8 [facility] 2021-06-08 2021-06-08 Documentat NancyMaame babb 1.2.840.1 [id number] Univers 00:00:00 00:00:00 ion K 10605.1.1 ity of 3.412.2.7 [place] .3.124439 MD Jackson8 [facility] 2021-06-08 2021-06-08 Travel 1.2.840.1 1.2.521.545 1177 [id number] Univers 00:00:00 00:00:00 13929.1.1 350.1.13.41 ity of 3.412.2.7 2.2[place]7.3.698 [place] .3.366201 084.8 MD Jett [facility] 2021-06-08 2021-06-08 Documentat NancyMaame babb 1.2.840.1 [id number] Univers 00:00:00 00:00:00 ion K 67641.1.1 ity of 3.412.2.7 [place] .3.736381 MD Jackson8 [facility] 2021-06-08 2021-06-08 Travel 1.2.840.1 1.2.259.763 0719 [id number] Univers 00:00:00 00:00:00 63668.1.1 350.1.13.41 ity of 3.412.2.7 2.2.7.3.698 [place] .3.444235 084.8 MD Jett [facility] 2021-06-07 2021-06-07 [facility] Slava Washburn 1.2.840.1 [id number] 10 [id number] Univers 11:48:52 23:59:00 Encounter Nick 85460.1.1 it y of 3.412.2.7 [place] .3.282396 MD [facility]ett [facility] 2021-06-07 2021-06-07 [facility] Slava Ariza 1.2.840.1 [id number] 10 [id number] Univers 11:48:52 23:59:00 Encounter Nick 71412.1.1 it y of 3.412.2.7 [place] .3.275721 MD [facility]ett [facility] 2021-06-07 2021-06-07 Travel 1.2.840.1 1.2.361.795 5180 [id number] Univers 00:00:00 00:00:00 91117.1.1 350.1.13.41 ity of 3.412.2.7 2.2.7.3.698 [place] .3.083713 084.8 MD [facility]ett [facility] 2021-06-07 2021-06-07 Travel 1.2.840.1 1.2.363.204 3192 [id number] Univers 00:00:00 00:00:00 56833.1.1 350.1.13.41 ity of 3.412.2.7 2.2.7.3.698 [place] .3.740188 084.8 MD Jett [facility] 2021-06-06 2021-06-06 [facility] Slava Ariza 1.2.840.1 [id number] 10 [id number] Univers 13:38:56 23:59:00 Encounter Nick 02370.1.1 it y of 3.412.2.7 [place] .3.479680 MD [facility]ett [facility] 2021-06-06 2021-06-06 [facility] 1.2.840.1 [id number] 10 [id number] Univers 13:38:56 23:59:00 Encounter Nick 58251.1.1 it y of 3.412.2.7 [place] .3.529864 MD Jett [facility] 2021-06-06 2021-06-06 [facility] DOROTHY Desir 1.2.840.1 [id number] 1087 [id number] Univers 07:00:00 13:37:00 Encounter Yumi 36772.1.1 it y of 3.412.2.7 [place] .3.451565 MD [facility]ett [facility] 2021-06-06 2021-06-06 [facility] 1.2.840.1 [id number] 1087 [id number] Univers 07:00:00 13:37:00 Encounter Yumi 92292.1.1 it y of 3.412.2.7 [place] .3.941201 MD Jett [facility] 2021-06-06 2021-06-06 [facility], 1.2.840.1 [id number] 1087 [id number] Univers 06:30:00 06:59:00 Encounter Yumi 55542.1.1 it y of 3.412.2.7 [place] .3.743367 MD [facility]ett [facility] 2021-06-06 2021-06-06 [facility], 1.2.840.1 [id number] 1087 [id number] Univers 06:30:00 06:59:00 Encounter Yumi 13788.1.1 it y of 3.412.2.7 [place] .3.424603 MD [facility]ett [facility] 2021-06-06 2021-06-06 Jesse Polk 1.2.840.1 [id number] Univers 00:00:00 00:00:00 Only lAyse 01744.1.1 [place] 3.412.2.7 [place] .3.734768 MD [facility]ett [facility] 2021-06-06 2021-06-06 Jesse Desir 1.2.840.1 [id number] Univers 00:00:00 00:00:00 Only Yumi 63183.1.1 ity of 3.412.2.7 [place] .3.019663 MD [facility]ett [facility] 2021-06-06 2021-06-06 Travel 1.2.840.1 1.2.126.445 0040 [id number] Univers 00:00:00 00:00:00 11652.1.1 350.1.13.41 ity of 3.412.2.7 2.2[place]7.3.698 [place] .3.822905 084.8 MD [facility]ett [facility] 2021-06-06 2021-06-06 Jesse Polk 1.2.840.1 [id number] Univers 00:00:00 00:00:00 Only Alyse 70342.1.1 [place] 3.[place].2.7 [place] .3.661906 MD [facility]ett [facility] 2021-06-06 2021-06-06 Orders Thang, 1.2.840.1 [id number] 00560 [id number] Univers 00:00:00 00:00:00 Only Yumi 08654.1.1 ity of 3.412.2.7 [place] .3.412831 MD [facility]ett [facility] 2021-06-06 2021-06-06 Travel 1.2.840.1 1.2.319.126 3905 [id number] Univers 00:00:00 00:00:00 77368.1.1 350.1.13.41 ity of 3.412.2.7 2.2[place]7.3.698 [place] .3.466008 084.8 MD [facility]ett [facility] 2021-06-02 2021-06-02 [facility] Slava 1.2.840.1 [id number] 10 [id number] Univers 06:16:14 23:59:00 Encounter Nick 42625.1.1 it y of 3.412.2.7 [place] .3.124683 MD [facility]ett [facility] 2021-06-02 2021-06-02 [facility] 1.2.840.1 [id number] 10 [id number] Univers 06:16:14 23:59:00 Encounter Nick 99640.1.1 it y of 3.412.2.7 [place] .3.325544 MD [facility]ett [facility] 2021-06-02 2021-06-02 Documentat Melvina, 1.2.840.1 [id number] Univers 00:00:00 00:00:00 ion Romeo Babb 37046.1.1 ity of 3.412.2.7 [place] .3.735298 MD [facility]ett [facility] 2021-06-02 2021-06-02 Travel 1.2.840.1 1.2.741.575 6758 [id number] Univers 00:00:00 00:00:00 61201.1.1 350.1.13.41 ity of 3.412.2.7 2.2.7.3.698 [place] .3.205344 084.8 MD [facility]ett [facility] 2021-06-02 2021-06-02 Documentat [place], 1.2.840.1 [id number] Univers 00:00:00 00:00:00 ion Romeo Babb 13877.1.1 ity of 3.412.2.7 [place] .3.538419 MD [facility]ett [facility] 2021-06-02 2021-06-02 Travel 1.2.840.1 1.2.772.526 6352 [id number] Univers 00:00:00 00:00:00 49538.1.1 350.1.13.41 ity of 3.412.2.7 2.2[place]7.3.698 [place] .3.541191 084.8 MD [facility]ett [facility] 2021-06-01 2021-06-01 [facility] Yue Stahl 1.2.840.1 1 [id number] Univers 10:37:44 23:59:00 Encounter Johanne Harry 07444.1.1 ity of 3.412.2.7 [place] .3.964829 MD [facility]ett [facility] 2021-06-01 2021-06-01 [facility] Yue Stahl 1.2.840.1 1 [id number] Univers 10:37:44 23:59:00 Encounter Johanne Harry 52231.1.1 ity of 3.412.2.7 [place] .3.583174 MD [facility]ett [facility] 2021-06-01 2021-06-01 Office DOROTHY [place] 1.2.840.1 [id number] 1087 [id number] Univers 14:00:00 14:00:28 Visit Brenda 12178.1.1 ity of 3.412.2.7 [place] .3.140615 MD [facility]ett [facility] 2021-06-01 2021-06-01 Office Maria Lrossana, 1.2.840.1 [id number] Univers 14:00:00 14:00:28 Visit Brenda 56864.1.1 ity of 3.412.2.7 [place] .3.202128 MD [facility]8 [facility] 2021-06-01 2021-06-01 [facility] Slava Washburn 1.2.840.1 [id number] Univers 06:18:07 10:36:00 Encounter Nick 52377.1.1 it y of 3.412.2.7 [place] .3.279603 MD Jackson8 [facility] 2021-06-01 2021-06-01 [facility] Slava Ariza 1.2.840.1 [id number] Univers 06:18:07 10:36:00 Encounter Nick 65686.1.1 it y of 3.412.2.7 [place] .3.852572 MD Jackson8 [facility] 2021-06-01 2021-06-01 Travel 1.2.840.1 1.2.194.393 [id number] [facility] 00:00:00 00:00:00 38498.1.1 350.1.13.41 ity of 3.412.2.[place]3.698 [place] .3.816[place] 084.8 MD Jett [facility] 2021-06-01 2021-06-01 Travel 1.2.840.1 1.2.464.356 [id number] [facility] 00:00:00 00:00:00 79245.1.1 350.1.13.41 ity of 3.412.2.[place].3.698 [place] .3.565239 084.8 MD Jett [facility] 2021-05-31 2021-05-31 [facility] Slava Washburn 1.2.840.1 [id number] Univers 14:02:11 23:59:00 Encounter Nick 79291.1.1 it y of 3.412.2.7 [place] .3.061569 MD [facility]ett [facility] 2021-05-31 2021-05-31 [facility] Pedro Arizay 1.2.840.1 [id number] [facility] 14:02:11 23:59:00 Encounter Nick 80157.1.1 it y of 3.412.2.7 [place] .3.635774 MD Jett [facility] 2021-05-31 2021-05-31 Nutrition Slava Ariza Nick 1.2.840.1 [id number] [facility] 10:15:00 20:53:44 Maame Cruz 77816.1.1 ity of 3.412.2.7 [place] .3.684272 MD Jett [facility] 2021-05-31 2021-05-31 [facility] Slava Romero 1.2.840.1 [id number] Univers 10:15:00 20:53:44 Maame Cruz 23303.1.1 ity of 3.412.2.7 [place] .3.860863 MD Jett [facility] 2021-05-31 2021-05-31 Outpatient DOROTHY CARDOSO [facility] [id number] 15:31:35 15:31:35 ANNA Scanlonreginald patel 2021-05-31 2021-05-31 [facility] DOROTHY Ariza Slava 1.2.840.1 [id number] Univers 05:46:59 14:01:00 Encounter Nick 76362.1.1 it y of 3.412.2.7 [place] .3Manuel457287 MD Jett [facility] 2021-05-31 2021-05-31 [facility] Slava Ariza 1.2.840.1 [id number] Univers 05:46:59 14:01:00 Encounter Nick 53917.1.1 it y of 3.412.2.7 [place] .3Manuel384691 MD [facility]ett [facility] 2021-05-31 2021-05-31 Travel 1.2.840.1 1.2.571.739 [id number] [facility] 00:00:00 00:00:00 78483.1.1 350.1.13.41 ity of 3.412.2.7 2.[place]7.3.698 [place]3.4095[place] 084.8 MD Jett [facility] 2021-05-31 2021-05-31 Travel 1.2.840.1 1.2.265.937 [id number] [id number] [facility] 00:00:00 00:00:00 62571.1.1 350.1.13.41 ity of 3.412.2.7 2.[place]7.3.698 [place] .3.690465 084.8 MD Jett [facility] 2021-05-30 2021-05-30 [facility] Slava Washburn 1.2.840.1 [id number] Univers 06:55:13 23:59:00 Encounter Nick 78124.1.1 it y of 3.412.2.7 [place] .3.745841 MD Jett [facility] 2021-05-30 2021-05-30 [facility] Slava Ariza 1.2.840.1 [id number] Univers 06:55:13 23:59:00 Encounter Nick 61114.1.1 it y of 3.412.2.7 [place] .3.525467 MD Jett [facility] 2021-05-30 2021-05-30 Infusion Yumi Barahona 1.2.840.1 [id number] Univers 11:30:00 15:30:00 Cole Rosenthal 58931.1.1 ity of 3.412.2.7 [place] .3.091441 MD Jett [facility] 2021-05-30 2021-05-30 Infusion Yumi Desir 1.2.840.1 [id number] Univers 11:30:00 15:30:00 Cole Rosenthal 32738.1.1 ity of 3.412.2.7 [place] .3.803559 MD [facility] 2021-05-30 2021-05-30 [facility] DOROTHY Desir, 1.2.840.1 [id number] Univers 06:15:00 06:54:00 Encounter Yumi 04919.1.1 it y of 3.412.2.7 [place] .3.046483 MD Jackson8 [facility] 2021-05-30 2021-05-30 [facility] Thang, 1.2.840.1 [id number] Univers 06:15:00 06:54:00 Encounter Yumi 87424.1.1 it y of 3.412.2.7 [place] .3.182143 MD Jackson8 [facility] 2021-05-30 2021-05-30 Travel 1.2.840.1 1.2.273.378 [id number] [id number] Univers 00:00:00 00:00:00 79577.1.1 350.1.13.41 ity of 3.412.2.7 2.[place]7.3.698 [place] .3.289600 084.8 MD Jackson8 [facility] 2021-05-30 2021-05-30 Travel 1.2.840.1 1.2.666.814 3466 [id number] [facility] 00:00:00 00:00:00 51136.1.1 350.1.13.41 ity of 3.412.2.[place]3.698 [place] 084.8 MD Jett [facility] 2021-05-25 2021-05-25 [facility] Slava Washburn 1.2.840.1 [id number] 10 [id number] Univers 08:51:12 23:59:00 Encounter Nick 43127.1.1 it y of 3.412.2.7 [place] .3.455415 MD [facility]ett [facility] 2021-05-25 2021-05-25 [facility] 1.2.840.1 [id number] 10 [id number] Univers 08:51:12 23:59:00 Encounter Nick 27897.1.1 it y of 3.412.2.7 [place] .3.032641 MD Jett [facility] 2021-05-25 2021-05-25 Office DOROTHY Desir, 1.2.840.1 [id number] Univers 11:00:00 11:57:52 Visit Yumi 52589.1.1 ity of 3.412.2.7 [place] .3.647245 .8 [facility] 2021-05-25 2021-05-25 Office Thang 1.2.840.1 [id number] Univers 11:00:00 11:57:52 Visit Yumi 90770.1.1 ity of 3.412.2.7 [place] .3.357812 MD Jackson8 [facility] 2021-05-25 2021-05-25 [facility] DOROTHY HarleenPedroy 1.2.840.1 [id number] 10 [id number] Univers 08:22:09 08:50:00 Encounter Nick 99882.1.1 it y of 3.412.2.7 [place] .3.351095 MD Jackson8 [facility] 2021-05-25 2021-05-25 [facility] Slava Ariza 1.2.840.1 [id number] 10 [id number] Univers 08:22:09 08:50:00 Encounter Nick 56700.1.1 it y of 3.412.2.7 [place] .3.209199 MD Jackson8 [facility] 2021-05-25 2021-05-25 Jesse De La Rosa 1.2.840.1 [id number] Univers 00:00:00 00:00:00 Only Alexandra 51664.1.1 ity of 3.412.2.7 [place] .3.207531 MD Jackson8 [facility] 2021-05-25 2021-05-25 Travel 1.2.840.1 1.2.488.529 2162 [id number] Univers 00:00:00 00:00:00 01504.1.1 350.1.13.41 ity of 3.412.2.7 [place]7.3.698 [place]3.126463 084.8 MD Jett [facility] 2021-05-25 2021-05-25 Orders Rj, 1.2.840.1 [id number] Univers 00:00:00 00:00:00 Only Alexandra 45121.1.1 ity of 3.412.2.7 [place] .3.831847 MD Jett [facility] 2021-05-25 2021-05-25 Travel 1.2.840.1 1.2.154.790 2270 [id number] [facility] 00:00:00 00:00:00 64069.1.1 350.1.13.41 ity of 3.412.2.7 [place]7.3.698 [place]3.696438 084.8 MD Jett [facility] 2021-05-24 2021-05-24 [facility] 1.2.840.1 [id number] 10 [id number] Univers 14:48:05 23:59:00 Encounter Nick 96792.1.1 it y of 3.412.2.7 [place] .3.611326 MD Jett [facility] 2021-05-24 2021-05-24 [facility] 1.2.840.1 [id number] 10 [id number] Univers 14:48:05 23:59:00 Encounter Nick 29633.1.1 it y of 3.412.2.7 [place] .3.379362 MD Jett [facility] 2021-05-24 2021-05-24 Travel 1.2.840.1 1.2.647.843 6598 [id number] Univers 00:00:00 00:00:00 84057.1.1 350.1.13.41 ity of 3.412.2.7 [place]7.3.698 [place] .3.144941 084.8 MD Jett [facility] 2021-05-24 2021-05-24 Travel 1.2.840.1 1.2.863.616 5641 [id number] Univers 00:00:00 00:00:00 25129.1.1 350.1.13.41 ity of 3.412.2.7 [place]7.3.698 [place]3.532636 084.8 MD Jackson8 [facility] 2021-05-23 2021-05-23 [facility] Slava Washburn 1.2.840.1 [id number] 10 [id number] Univers 15:22:13 23:59:00 Encounter Nick 32452.1.1 it y of 3.412.2.7 [place] .3.873545 MD Jackson8 [facility] 2021-05-23 2021-05-23 [facility]1 [id number] 10 [id number] Univers 15:22:13 23:59:00 Encounter Nick 81159.1.1 it y of 3.412.2.7 [place] .3.252819 MD Jackson8 [facility] 2021-05-23 2021-05-23 [facility], 1.2.840.1 [id number] 1087 [id number] Univers 08:29:28 15:21:00 Encounter Yumi 15845.1.1 it y of 3.412.2.7 [place] .3.438382 .8 [facility] 2021-05-23 2021-05-23 [facility] 1.2.840.1 [id number] 1087 [id number] Univers 08:29:28 15:21:00 Encounter Yumi 30096.1.1 it y of 3.412.2.7 [place] .3.441496 MD Jackson8 [facility] 2021-05-23 2021-05-23 Infusion Yumi Barahona 1.2.840.1 [id number] Univers 08:30:00 14:05:15 Roc James 26431.1.1 ity of 3.412.2.7 [place] .3.305669 MD Jett [facility] 2021-05-23 2021-05-23 Infusion Yumi Desir 1.2.840.1 [id number] Univers 08:30:00 14:05:15 Roc James 73140.1.1 ity of 3.412.2.7 [place] .3.432271 MD Jett [facility] 2021-05-23 2021-05-23 [facility] Slava Washburn 1.2.840.1 [id number] 10 [id number] Univers 06:28:35 08:28:00 Encounter Nick 82598.1.1 it y of 3.412.2.7 [place] .3.831719 MD [facility]ett [facility] 2021-05-23 2021-05-23 [facility] 1.2.840.1 [id number] 10 [id number] Univers 06:28:35 08:28:00 Encounter Nick 04895.1.1 it y of 3.412.2.7 [place] .3.038929 MD Jett [facility] 2021-05-23 2021-05-23 Travel 1.2.840.1 1.2.383.763 8323 [id number] Univers 00:00:00 00:00:00 08845.1.1 350.1.13.41 ity of 3.412.2.7 [place].7.3.698 [place] .3.913[place] 084.Olga [facility] 2021-05-23 2021-05-23 Travel 1.2.840.1 1.2.529.584 1093 [id number] Univers 00:00:00 00:00:00 30872.1.1 350.1.13.41 ity of 3.412.2.7 2.2.7.3.698 [place] .3.118780 084Manuel8 MD Jett [facility] 2021-05-22 2021-05-22 [facility] Slava Washburn 1.2.840.1 [id number] 10 [id number] Univers 14:50:33 23:59:00 Encounter Nick 22135.1.1 it y of 3.412.2.7 [place] .3.790733 MD Jett [facility] 2021-05-22 2021-05-22 Antonio Pedro Arizay 1.2.840.1 [id number] 10 [id number] Univers 14:50:33 23:59:00 Merlin Romero 98565.1.1 it y of 3.412.2.7 [place] .3.842484 MD Jackson8 [facility] 2021-05-22 2021-05-22 Documentat Ngueyn, 1.2.840.1 [id number] 764 [id number] Univers 00:00:00 00:00:00 ladi Vasques 38082.1.1 ity of Dulce 3.412.2.7 [place] .3.544726 MD Jackson8 [facility] 2021-05-22 2021-05-22 Travel 1.2.840.1 1.2.891.141 0043 [id number] Univers 00:00:00 00:00:00 84382.1.1 350.1.13.41 ity of 3.412.2.7 [place]7.3.698 [place] .3.837749 084.8 MD Jackson8 [facility] 2021-05-22 2021-05-22 Documentat Nguyen, 1.2.840.1 [id number] Univers 00:00:00 00:00:00 ladi Vasques 39178.1.1 ity of [place] 3.412.2.7 [place] .3.600863 MD Jackson8 [facility] 2021-05-22 2021-05-22 Travel 1.2.840.1 1.2.160.781 0050 [id number] Univers 00:00:00 00:00:00 34896.1.1 350.1.13.41 ity of 3.412.2.7 [place]7.3.698 [place]3.876033 084.8 MD Jackson8 [facility] 2021-05-19 2021-05-19 [facility] DOROTHY Alemann Slava Nick 1.2.840.1 101 [id number] Univers 11:15:00 13:40:55 Maame Cruz 55060.1.1 ity of 3.412.2.7 [place] .3.566386 MD Jackson8 [facility] 2021-05-19 2021-05-19 Slava Witt 1.2.840.1 101 [id number] Univers 11:15:00 13:40:55 NancyMaame babb 01774.1.1 ity of 3.412.2.7 [place] .3.428310 .8 [facility] 2021-05-19 2021-05-19 Orders Jam, 1.2.840.1 [id number] Univers 00:00:00 00:00:00 Only Ene Singh 45874.1.1 ity of 3.412.2.7 [place] .3.052952 MD Jackson8 [facility] 2021-05-19 2021-05-19 Jesse Polk, 1.2.840.1 [id number] [id number] Univers 00:00:00 00:00:00 Only Ene Samantha 53209.1.1 ity of 3.412.2.7 [place] .3.730817 MD Jackson8 [facility] 2021-05-18 2021-05-18 [facility] Alexandra Yan 1.2.840.1 [id number] 5 [id number] Univers 09:16:35 23:59:00 Encounter Cady Zuleta 73222.1.1 ity of 3.412.2.7 [place] .3.996647 MD Jackson8 [facility] 2021-05-18 2021-05-18 [facility] Alexandra De La Rosa 1.2.840.1 [id number] 5 [id number] Univers 09:16:35 23:59:00 Encounter Cady Zuleta 67346.1.1 ity of 3.412.2.7 [place] .3.016839 MD Jackson8 [facility] 2021-05-18 2021-05-18 Outpatient SLAVA WASHBURN [facility] [id number] 15:19:23 15:19:23 Chucky [facility] 2021-05-18 2021-05-18 Travel 1.2.840.1 1.2.749.944 0374 [id number] Univers 00:00:00 00:00:00 32524.1.1 350.1.13.41 ity of 3.412.2.7 2.2.7.3.698 [place] .3.862792 084.8 MD Jett [facility] 2021-05-18 2021-05-18 Travel 1.2.840.1 1.2.370.596 0501 [id number] Univers 00:00:00 00:00:00 05715.1.1 350.1.13.41 ity of 3.412.2.7 2.[place].7.3.698 [place] .3.233910 084.8 MD Jett [facility] 2021-05-16 2021-05-16 [facility] Slava Washburn 1.2.840.1 [id number] 10 [id number] Univers 08:30:00 23:59:00 Encounter Nick 49406.1.1 it y of 3.412.2.7 [place] .3.594559 MD Jett [facility] 2021-05-16 2021-05-16 [facility] 1.2.840.1 [id number] 10 [id number] Univers 08:30:00 23:59:00 Encounter Nick 13924.1.1 it y of 3.412.2.7 [place] .3.133309 MD Jett [facility] 2021-05-16 2021-05-16 Orders Erasto, 1.2.840.1 [id number] Univers 00:00:00 00:00:00 Only Anca H 71013.1.1 it y of 3.412.2.7 [place] .3.472458 MD Jett [facility] 2021-05-16 2021-05-16 Documentat Clemons, 1.2.840.1 [id number] Univers 00:00:00 00:00:00 ion Huan H 50039.1.1 ity of 3.412.2.7 [place] .3.148659 MD Jett [facility] 2021-05-16 2021-05-16 Orders Erasto, 1.2.840.1 [id number] Univers 00:00:00 00:00:00 Only Anca Sullivan 11778.1.1 it y of 3.412.2.7 [place] .3.886891 MD Jackson8 [facility] 2021-05-16 2021-05-16 Documentat Kaci 1.2.840.1 [id number] Univers 00:00:00 00:00:00 ion Huan Sullivan 21935.1.1 ity of 3.412.2.7 [place] .3.683627 MD Jackson8 [facility] 2021-05-12 2021-05-12 DocumentSlava Francisco 1.2.840.1 [id number] Univers 00:00:00 00:00:00 ion Nick 64297.1.1 ity of 3.412.2.7 [place] .3.173593 MD aJckson8 [facility] 2021-05-12 2021-05-12 Multidisci Quintin 1.2.840.1 [id number] Univers 00:00:00 00:00:00 Jane castillo 02856.1.1 ity of Visit 3.412.2.7 [place] .3.661417 MD Jett [facility] 2021-05-12 2021-05-12 Jesse Desir 1.2.840.1 [id number] Univers 00:00:00 00:00:00 Only Yumi 76298.1.1 ity of 3.412.2.7 [place] .3.011885 MD Jackson8 [facility] 2021-05-12 2021-05-12 DocumentSlava Francisco 1.2.840.1 [id number] Univers 00:00:00 00:00:00 ion Nick 21492.1.1 ity of 3.412.2.7 [place] .3.316867 MD Jett [facility] 2021-05-12 2021-05-12 Multidisci Marlenasirisha 1.2.840.1 [id number] Univers 00:00:00 00:00:00 Jane castillo 09708.1.1 ity of Visit 3.412.2.7 [place] .3.979561 MD Jackson8 [facility] 2021-05-12 2021-05-12 Orders Thang 1.2.840.1 [id number] Univers 00:00:00 00:00:00 Only Yumi 49743.1.1 ity of 3.412.2.7 [place] .3.203726 MD Jackson8 [facility] 2021-05-11 2021-05-11 [facility] Slava Washburn 1.2.840.1 [id number] 10 [id number] Univers 12:11:49 23:59:00 Encounter Nick 72388.1.1 it y of 3.412.2.7 [place] .3.180852 .8 [facility] 2021-05-11 2021-05-11 [facility] Slava Ariza 1.2.840.1 [id number] 10 [id number] Univers 12:11:49 23:59:00 Encounter Nick 03898.1.1 it y of 3.412.2.7 [place] .3.157998 MD Jackson8 [facility] 2021-05-11 2021-05-11 Consult DOROTHY Desir 1.2.840.1 [id number] Univers 14:00:00 16:28:29 Yumi 21555.1.1 ity of 3.412.2.7 [place] .3.846748 MD Jackson8 [facility] 2021-05-11 2021-05-11 Consult Thang 1.2.840.1 [id number] Univers 14:00:00 16:28:29 Yumi 72503.1.1 ity of 3.412.2.7 [place] .3.111027 MD Jett [facility] 2021-05-11 2021-05-11 Clinical Alexandra Yan 1.2.840.1 [id number] Univers 08:45:00 15:39:22 Support Thao Baldwin 75833.1.1 ity of 3.412.2.7 [place] .3.717253 MD Jackson8 [facility] 2021-05-11 2021-05-11 [facility] Alexandra De La Rosa 1.2.840.1 [id number] Univers 08:45:00 15:39:22 Support Thao Baldwin 03209.1.1 ity of 3.412.2.7 [place] .3.484030 MD Jackson8 [facility] 2021-05-11 2021-05-11 [facility] Alexandra De La Rosa 1.2.840.1 [id number] Univers 10:00:00 12:10:00 Encounter Slava Ariza 96117.1.1 ity of 3.412.2.7 [place] .3.040249 MD Jcakson8 [facility] 2021-05-11 2021-05-11 [facility] Alexandra De La Rosa 1.2.840.1 [id number] Univers 10:00:00 12:10:00 Encounter Slava Ariza 82485.1.1 ity of 3.412.2.7 [place] .3.686910 MD Jackson8 [facility] 2021-05-11 2021-05-[address] [facility], 1.2.840.1 [id number] Univers 09:15:00 09:59:00 Encounter Alexandra 69320.1.1 it y of 3.412.2.7 [place] .3.789020 MD Jackson8 [facility] 2021-05-11 2021-05-11 [facility], 1.2.840.1 [id number] Univers 09:15:00 09:59:00 Encounter Alexandra 38994.1.1 it y of 3.412.2.7 [place] .3.085726 MD Jackson8 [facility] 2021-05-11 2021-05-11 Documentat Slava Ariza 1.2.840.1 [id number] Univers 00:00:00 00:00:00 ion Nick 05362.1.1 ity of 3.412.2.7 [place] .3.503075 MD Jackson8 [facility] 2021-05-11 2021-05-11 Arina Gutierrez 1.2.840.1 [id number] Univers 00:00:00 00:00:00 ion 98216.1.1 ity of 3.412.2.7 [place] .3.947584 MD Jackson8 [facility] 2021-05-11 2021-05-11 Slava Longoria 1.2.840.1 [id number] Univers 00:00:00 00:00:00 ion Nick 27475.1.1 ity of 3.412.2.7 [place] .3.677560 MD Jett [facility] 2021-05-11 2021-05-11 Jesse Sweeney, 1.2.840.1 [id number] Univers 00:00:00 00:00:00 Only Jose Martin 51422.1.1 ity of Shahwar 3.412.2.7 [place] .3.307163 MD Jackson8 [facility] 2021-05-11 2021-05-11 Travel 1.2.840.1 1.2.475.729 3529 [id number] Univers 00:00:00 00:00:00 59943.1.1 350.1.13.41 ity of 3.412.2.7 2.2.7.3.698 [place] .3.091829 084.8 MD Jackson8 [facility] 2021-05-11 2021-05-11 Slava Longoria 1.2.840.1 [id number] Univers 00:00:00 00:00:00 ion Nick 02505.1.1 ity of 3.412.2.7 [place] .3.807419 MD Jackson8 [facility] 2021-05-11 2021-05-11 Arina Gutierrez 1.2.840.1 [id number] Univers 00:00:00 00:00:00 ion 10921.1.1 ity of 3.412.2.7 [place] .3.839800 MD Jett [facility] 2021-05-11 2021-05-11 DocumentSlava Francisco 1.2.840.1 [id number] Univers 00:00:00 00:00:00 ion Nick 94338.1.1 ity of 3.412.2.7 [place] .3.580873 MD Jett [facility] 2021-05-11 2021-05-11 Orders Zahra, 1.2.840.1 [id number] Univers 00:00:00 00:00:00 Only Jose Martin 37513.1.1 ity of Shahwar 3.412.2.7 [place] .3.814034 MD Jett [facility] 2021-05-11 2021-05-11 Travel 1.2.840.1 1.2.334.389 7117 [id number] Univers 00:00:00 00:00:00 91599.1.1 350.1.13.41 ity of 3.412.2.7 2.2[place]7.3.698 [place] .3.048220 084.8 MD Jett [facility] 2021-05-10 2021-05-10 Slava Monroy 1.2.840.1 [id number] Univers 00:00:00 00:00:00 Only Nick 48205.1.1 ity of 3.412.2.7 [place] .3.542601 MD Jett [facility] 2021-05-10 2021-05-10 Slava Monroy 1.2.840.1 [id number] [id number] Univers 00:00:00 00:00:00 Only Nick 47546.1.1 ity of 3.412.2.7 [place] .3.828554 MD Jett [facility] 2021-05-09 2021-05-09 Outpatient EL LOLITA SALINAS MDA [id number] 11:38:34 11:38:34 LEONID Scanlonreginald patel 2021-05-09 2021-05-09 Outpatient SLAVA WASHBURN [facility] [id number] 11:38:24 11:38:24 Chucky patel 2021-05-08 2021-05-08 Refangelita Davis, 1.2.840.1 [id number] Methodi 00:00:00 00:00:[address] 3.430.2.7 Hospit a .3.702230 l .8 2021-05-06 2021-05-06 [facility], 1.2.840.1 [id number] [id number] Univers 10:53:13 23:59:00 Encounter Elva 83083.1.1 it y of 3.412.2.7 [place] .3.658477 .8 [facility] 2021-05-06 2021-05-06 [facility], 1.2.840.1 [id number] [id number] Univers 10:53:13 23:59:00 Encounter Elva 99189.1.1 it y of 3.412.2.7 [place] .3.695351 .8 [facility] 2021-05-06 2021-05-06 [facility], 1.2.840.1 [id number] [id number] Univers 10:44:38 10:52:00 Encounter Elva 21024.1.1 it y of 3.412.2.7 [place] .3.761381 .8 [facility] 2021-05-06 2021-05-06 [facility], 1.2.840.1 [id number] Univers 10:44:38 10:52:00 Encounter Elva 38657.1.1 it y of 3.412.2.7 [place] .3.835749 .8 [facility] 2021-05-06 2021-05-06 [facility] Alexandra Yan 1.2.840.1 [id number] 7 [id number] Univers 08:30:00 10:43:00 Encounter Sara Harris 76060.1.1 ity of 3.412.2.7 [place] .3.661887 MD Jett [facility] 2021-05-06 2021-05-06 [facility] Alexandra De La Rosa 1.2.840.1 [id number] Univers 08:30:00 10:43:00 Encounter Sara Harris 20819.1.1 ity of 3.412.2.7 [place] .3.459455 MD Jett [facility] 2021-05-06 2021-05-06 [facility] DOROTHY Polk, 1.2.840.1 [id number] Univers 07:45:03 08:29:00 Encounter Ene Singh 83229.1.1 it y of 3.412.2.7 [place] .3.382815 MD Jett [facility] 2021-05-06 2021-05-06 [facility] Jam, 1.2.840.1 [id number] Univers 07:45:03 08:29:00 Encounter Ene Singh 88161.1.1 it y of 3.412.2.7 [place] .3.829599 MD Jett [facility] 2021-05-06 2021-05-06 Travel 1.2.840.1 1.2.956.784 2085 [id number] Univers 00:00:00 00:00:00 78149.1.1 350.1.13.41 ity of 3.412.2.7 2.[place]7.3.698 [place] .3.456373 084.8 MD Jett [facility] 2021-05-06 2021-05-06 Travel 1.2.840.1 1.2.020.625 5534 [id number] Univers 00:00:00 00:00:00 00776.1.1 350.1.13.41 ity of 3.412.2.7 2.2.7.3.698 [place] .3.974895 084Manuel8 MD Jett [facility] 2021-05-05 2021-05-05 Orders Alduraiby, 1.2.840.1 [id number] [id number] Univers 00:00:00 00:00:00 Only Dixie 15869.1.1 ity of [place]ier[place] 3.412.2.7 [place] .3.623351 MD Jackson8 [facility] 2021-05-05 2021-05-05 Orders Alduraiby, 1.2.840.1 [id number] Univers 00:00:00 00:00:00 Only Dixie 13072.1.1 ity of [place] 3.412.2.7 [place] .3.791236 MD Jackson8 [facility] 2021-05-04 2021-05-04 [facility] Slava Washburn 1.2.840.1 [id number] 10 [id number] Univers 10:40:00 23:59:00 Encounter Nick 77890.1.1 it y of 3.412.2.7 [place] .3.763124 .8 [facility] 2021-05-04 2021-05-04 [facility] Slava Ariza 1.2.840.1 [id number] 10 [id number] Univers 10:40:00 23:59:00 Encounter Nick 99467.1.1 it y of 3.412.2.7 [place] .3.530436 MD Jackson8 [facility] 2021-05-04 2021-05-04 Clinical Alexandra Yan 1.2.840.1 [id number] Univers 10:15:00 12:58:49 Support Trixie Portillo 23403.1.1 ity of 3.412.2.7 [place] .3.045095 MD Jackson8 [facility] 2021-05-04 2021-05-04 Clinical Alexandra De La Rosa 1.2.840.1 [id number] Univers 10:15:00 12:58:49 Support Trixie Portillo 56643.1.1 ity of 3.412.2.7 [place] .3.413207 MD Jackson8 [facility] 2021-05-04 2021-05-04 [facility], 1.2.840.1 [id number] [id number] Univers 09:45:00 10:39:00 Encounter Yumi 85691.1.1 it y of 3.412.2.7 [place] .3.155665 MD Jett [facility] 2021-05-04 2021-05-04 [facility], 1.2.840.1 [id number] [id number] Univers 09:45:00 10:39:00 Encounter Yumi 84403.1.1 it y of 3.412.2.7 [place] .3.624063 MD Jett [facility] 2021-05-04 2021-05-04 [facility] Zahra, 1.2.840.1 [id number] Univers 00:00:00 00:00:00 Only Jose Martin 97826.1.1 ity of Shahwar 3.412.2.7 [place] .3.958814 MD Jett [facility] 2021-05-04 2021-05-04 Travel 1.2.840.1 1.2.145.454 3313 [id number] Univers 00:00:00 00:00:00 52797.1.1 350.1.13.41 ity of 3.412.2.7 2.2[place]7.3.698 [place] .3.255814 084.8 MD Jett [facility] 2021-05-04 2021-05-04 Jesse Sweeney, 1.2.840.1 [id number] Univers 00:00:00 00:00:00 Only Jose Martin 46864.1.1 ity of Shahwar 3.412.2.7 [place] .3.528533 MD Jett [facility] 2021-05-04 2021-05-04 Travel 1.2.840.1 1.2.655.902 5254 [id number] Univers 00:00:00 00:00:00 63200.1.1 350.1.13.41 ity of 3.412.2.7 2.2.7.3.698 [place] .3.770939 084.8 MD Jett [facility] 2021-05-03 2021-05-03 Hospital DOROTHY De La Rosa, 1.2.840.1 [id number] Univers 08:06:41 23:59:00 Encounter Alexandra 09980.1.1 it y of 3.412.2.7 [place] .3.382776 MD Jackson8 [facility] 2021-05-03 2021-05-03 Hospital Rj, 1.2.840.1 [id number] Univers 08:06:41 23:59:00 Encounter Alexandra 80238.1.1 it y of 3.412.2.7 [place] .3.004934 MD Jackson8 [facility] 2021-05-03 2021-05-03 Ancillary Rj, 1.2.840.1 [id number] [id number] Univers 06:25:00 07:50:00 Procedure Alexandra 27745.1.1 it y of 3.412.2.7 [place] .3.165703 MD Jett [facility] 2021-05-03 2021-05-03 Ancillary Rj, 1.2.840.1 [id number] [id number] Univers 06:25:00 07:50:00 Procedure Alexandra 69019.1.1 it y of 3.412.2.7 [place] .3.661608 MD Jett [facility] 2021-05-03 2021-05-03 Travel 1.2.840.1 1.2.274.392 7681 [id number] [facility] 00:00:00 00:00:00 40546.1.1 350.1.13.41 ity of 3.412.2.7 2.[place]7.3.698 [place] .3.631141 084.8 MD [facility] [place] 2021-05-03 2021-05-03 Travel 1.2.840.1 1.2.796.611 8280 [id number] [facility] 00:00:00 00:00:00 46677.1.1 350.1.13.41 ity of 3.412.2.[place].3.698 [place] .3.265645 084.8 .8 [facility] 2021-05-02 2021-05-02 Outpatient [facility] [id number] 13:03:47 13:06:58 [facility] 2021-05-02 2021-05-02 Travel 1.2.840.1 1.2.029.070 1291 [id number] [facility] 00:00:00 00:00:00 49085.1.1 350.1.13.41 ity of 3.412.2.7 2.[place]7.3.698 [place] .3.153684 084.8 .Olga [facility] 2021-05-02 2021-05-02 Travel 1.2.840.1 1.2.802.882 3973 [id number] [facility] 00:00:00 00:00:00 54790.1.1 350.1.13.41 ity of 3.412.2.7 2.[place]7.3.698 [place] .3.790510 084.8 MD Jett [facility] 2021-05-01 2021-05-01 Orders Thang 1.2.840.1 [id number] [facility] 00:00:00 00:00:00 Only Yumi 97574.1.1 ity of 3.412.2.7 [place] .3.448111 MD Jett [facility] 2021-05-01 2021-05-01 Orders Thang 1.2.840.1 [id number] [facility] 00:00:00 00:00:00 Only Yumi 80896.1.1 ity of 3.412.2.7 [place] .3.856531 MD Jett [facility] 2021-04-26 2021-04-26 Orders [place] 1.2.840.1 [id number] [facility] 00:00:00 00:00:00 Only Yesenia 21805.1.1 ity of [place] 3.412.2.7 [place] .3.689067 MD Jett [facility] 2021-04-26 2021-04-26 Jesse De La Rosa, 1.2.840.1 [id number] [employer] 00:00:00 00:00:00 Only Alexandra 13668.1.1 ity of 3.412.2.7 [place] .3.310736 MD Jett [facility] 2021-04-26 2021-04-26 Jesse Simmons, 1.2.840.1 [id number] [facility] 00:00:00 00:00:00 Only Yesenia 99203.1.1 ity of [place] 3.412.2.7 [place] .3.308857 MD Jackson8 [facility] 2021-04-26 2021-04-26 Jesse Rj, 1.2.840.1 [id number] [employer] 00:00:00 00:00:00 Only Alexandra 04687.1.1 ity of 3.412.2.7 [place] .3.492357 MD Jett [facility] 2021-04-22 2021-04-22 Ancillary EL 1.2.840.1 [id number] 1086 [id number] [facility] 20:25:00 20:30:00 Procedure 53836.1.1 it y of 3.412.2.7 [place] .3.274377 MD Jett [facility] 2021-04-22 2021-04-22 Ancillary 1.2.840.1 [id number] 1086 [id number] [facility] 20:25:00 20:30:00 Procedure 72133.1.1 it y of 3.412.2.7 [place] .3.275967 MD Jett [facility] 2021-04-22 2021-04-22 Ancillary EL 1.2.840.1 [id number] 1086 [id number] [facility] 20:20:00 20:25:00 Procedure 71667.1.1 it y of 3.412.2.7 [place] .3.743966 MD Jett [facility] 2021-04-22 2021-04-22 Ancillary 1.2.840.1 [id number] 1086 [id number] [facility] 20:20:00 20:25:00 Procedure 91990.1.1 it y of 3.412.2.7 [place] .3.909190 MD Jackson8 [facility] 2021-04-22 2021-04-22 Ancillary EL 1.2.840.1 [id number] 1086 [id number] [facility] 20:15:00 20:20:00 Procedure 69498.1.1 it y of 3.412.2.7 [place] .3.050318 MD Jackson8 [facility] 2021-04-22 2021-04-22 Ancillary 1.2.840.1 [id number] 1086 [id number] [facility] 20:15:00 20:20:00 Procedure 77813.1.1 it y of 3.412.2.7 [place] .3.066295 MD Jackson8 [facility] 2021-04-22 2021-04-22 Ancillary EL 1.2.840.1 [id number] 1086 [id number] [facility] 20:10:00 20:15:00 Procedure 68604.1.1 it y of 3.412.2.7 [place] .3.892164 MD Jett [facility] 2021-04-22 2021-04-22 Ancillary 1.2.840.1 [id number] 1086 [id number] [facility] 20:10:00 20:15:00 Procedure 47483.1.1 it y of 3.412.2.7 [place] .3.445872 MD Jackson8 [facility] 2021-04-22 2021-04-22 Ancillary EL 1.2.840.1 [id number] 1086 [id number] [facility] 20:05:00 20:10:00 Procedure 73615.1.1 it y of 3.412.2.7 [place] .3.916348 MD Jackson8 [facility] 2021-04-22 2021-04-22 Ancillary 1.2.840.1 [id number] 1086 [id number] [facility] 20:05:00 20:10:00 Procedure 48774.1.1 it y of 3.412.2.7 [place] .3.647304 MD Jackson8 [facility] 2021-04-22 2021-04-22 Ancillary EL 1.2.840.1 [id number] 1086 [id number] [facility] 20:00:00 20:05:00 Procedure 76030.1.1 it y of 3.412.2.7 [place] .[id number] MD Jackson8 [facility] 2021-04-22 2021-04-22 Ancillary 1.2.840.1 [id number] Univers 20:00:00 20:05:00 Procedure 99735.1.1 it y of 3.412.2.7 [place] .[id number] MD Jackson8 [facility] 2021-04-20 2021-04-20 Lab Steve Munguia 1.2.840.1 [id number] Univers 00:00:00 00:00:00 Korina Brooks 27668.1.1 i ty of n 3.412.2.7 [place] .[id number] MD Jackson8 [facility] 2021-04-20 2021-04-20 Lab Steve Munguia 1.2.840.1 [id number] Univers 00:00:00 00:00:00 Korina Brooks 34320.1.1 i ty of n 3.412.2.7 [place] .[id number] MD Jackson8 [facility] 2021-03-18 2021-03-18 OFFICE STLMLC STLMLC [id number] Co mmon 00:00:00 00:00:00 VISIT [facility] PT - CHI LEVEL 4 [facility] 2021-02-15 2021-02-15 Outpatient STLMLC STLMLC [id number] Common 00:00:00 00:00:00 [facility] 2021-01-11 2021-01-11 Outpatient STLMLC STLMLC [id number] Common 00:00:00 00:00:00 [facility] 2020-10-26 2020-10-26 Outpatient [facility] [id number] [address] [place] [address] 00:00:00 00:00:[address] [facility] [address] 2020-04-07 2020-04-07 Outpatient STLMLC STLMLC [id number] Common 00:00:00 00:00:00 [facility] 2020-03-15 2020-03-15 Outpatient STLMLC STLMLC [id number] Common 00:00:00 00:00:00 [facility] 2020-02-11 2020-02-11 Out[facility] [id number] Common 09:19:00 09:19:00 t Specialty/U Sp franco Specialty rology - CHI /Urology Clinic [facility] 2019-12-23 2019-12-23 Out[facility] [id number] Common 13:20:00 13:20:[address] [facility] 2019-12-12 2019-12-12 [facility] [id number] Common 11:00:00 11:00:[address] [facility] 2019-12-04 2019-12-04 Out[facility] [id number] Common 08:44:00 08:44:[address] [facility] 2019-11-21 2019-11-21 Out[facility] [id number] Common 16:47:00 16:47:00 t Specialty/U Sp franco Specialty rology - CHI /Urology Clinic [facility] 2019-11-14 2019-11-14 Out[facility] [id number] Common 08:00:00 08:00:[address] [facility] 2019-11-13 2019-11-13 Out[facility] [id number] Common 14:40:00 14:40:[address] [facility] 2019-10-24 2019-10-24 Outpatient [facility] [id number] [address] 00:00:00 00:00:00 VENKAT [address] 2019-10-22 2019-10-22 Out[facility] [id number] Common 14:12:00 14:12:00 t Specialty/U Sp franco Specialty rology - CHI /Urology Clinic [facility] 2019-10-14 2019-10-14 [facility] [id number] 00:00:00 00:00:00 VENKAT [address] Results Test Description Test Time Test Comments Results Result Comments Source POC Glucose Screen 2022-04-16 12:04:28 Test Item Value Reference Range Interpretation Comme nts POC Glucose (test code = 127 mg/dL 70-99 H RN NotifiedCapillary blood 5651) samples, e.g. o btained by fingerstick, ma y have inaccurate results in oscar ents with decreased perip heral blood flow. Method descript ion: All results are measured us ing Electrochemistr y test methodology. Th e glucose in the sample mixes wi th the reagents on the test str ip. The reaction produces an bart ctric current. The amount of c urrent produced is proportional to the glucose concentration i n the blood. PO Sample Type (test code = Capillary 9554) Performing Lab (test code = [facility] [address]) MD [facility], [address] [facility], [place] [address]; Lab Dire ctor: Loida Chavez MD Lab Interpretation (test code Abnormal = 16142-2) [facility] CenterGlomerular Filtration Rate 2022-04-16 10:56:46 Test Item Value Reference Range Interpretation Comments eGFR (test code = 100 See_Comment The eGFRcr [place] calculated with [address]) the 2020 CKD-EP I creatinine equation using creatinine, patient's age, and sex for adults 18 years of age and older. Other fa ctors, especially musc le mass, may affect accuracy and need to be considered.A ccording to the Kidney Dise ase: Improving Global Outcomes (KDIGO) CKD Work Group 2012 Clinical Practice Guidel ine, chronic kidney disease (CKD) is defined as the abnormalities of kidney struc ture or function, prese nt for more than 3 months, with implications fo r health. CKD should be class ified by cause, GFR dana gory, and albuminuria cat egory. KDIGO guidelines prov shravan the following GFR c ategoriesStage Description GFR mL/min/1.73 m2G1* Normal or high >= 90G2* Mildly decrease d 60-89G3a Mildly to moder ately decreased 45-59 G3b Moderately to severely dec reased 30-44G4 Severely decrea sed 15-29G5 Kidney failure <15*In the absence of evid ence of kidney damage, neither G1 nor G2 fulfill criteri a for CKD. [Automated mess age] The system which ge nerated this result transmit mary reference range: >=60 mL/ min/1.73 sq. m. The referenc e range was not used to int erpret this result as shavon l/abnormal. [facility] CenterMagnesium [id number] 10:56:45 Test Item Value Reference Range Interpretation Comments Magnesium (test code = 35781-0) 2.2 mg/dL 1.6-2.6 [facility].Serum Lezyranhgt6667-64-73 10:56:44 Test Item Value Reference Range Interpretation Comments Creatinine (test code = 2160-0) 0.63 mg/dL 0.67-1.17 L Lab Interpretation (test code = Abnormal 36379-8) [facility] CenterElectrolyte [id number] 10:56:43 Test Item Value Reference Range Interpretation Comments Sodium Lvl (test code = 143 See_Comment [Au tomated message] 3964-2) The system [employer] generated this result transmitted ref erence range: 136 - 14 5 mEq/L. The refe rence range was not u sed to interpret this result as normal/abnor mal. Potassium Lvl (test code 3.9 See_Comment [A utomated message] = 8641-3) The system [employer] generated this result transmitted ref erence range: 3.5 - 5. 1 mEq/L. The refe rence range was not u sed to interpret this result as normal/abnor mal. Chloride (test code = 111 See_Comment H [Auto mated message] ) The system [employer] generated this result transmitted ref erence range: 98 - 107 mEq/L. The refe rence range was not u sed to interpret this result as normal/abnor mal. CO2 (test code = 2028-02) 27 See_Comment [A utomated message] The system [employer] generated this result transmitted ref erence range: 22 - 29 mEq/L. The reference r jackie was not used to interpret this result as normal/abnor mal. Anion Gap (test code = 5 See_Comment [Aut omated message] 52476-6) The system [employer] generated this result transmitted ref erence range: 4 - 14 m Eq/L. The reference r jackie was not used to interpret this result as normal/abnor mal. Lab Interpretation (test Abnormal code = 86917-7) [facility] CenterBUN2022-11-13 10:56:42 Test Item Value Reference Range Interpretation Comments BUN (test code = 3094-0) 24 mg/dL 6-23 H Lab Interpretation (test code = Abnormal 66248-9) [facility] CenterPhosphorus [id number] 10:56:41 Test Item Value Reference Range Interpretation Comments Phosphorus (test code = 2777-1) 3.3 mg/dL 2.5-4.5 [facility] CenterCalcium [id number] 10:56:40 Test Item Value Reference Range Interpretation Comments Calcium Lvl (test code = 85094-2) 8.5 mg/dL 8.4-10.2 [facility] CenterGlucose [id number] 10:56:38 Test Item Value Reference Range Interpretation Comments Glucose Level (test code 135 mg/dL 70-99 H Eff ective 12/29/15, = [...] diabetes Lab Interpretation (test Abnormal code = 85175-9) [facility] CenterComplete Blood Count w/o Aylepdsdgikg6940-46-96 10:47:12 Test Item Value Reference Range Interpretation Comments WBC (test code = 4.0 K/uL 4.0-11.0 6690-2) RBC (test code = 789-8) 2.46 See_Comment L [Au tomated message] The system [employer] generated this result transmitted ref erence range: 4.50 - 6 .00 M/uL. The refer ence range was not u sed to interpret this result as normal/abnor mal. Hgb (test code = 718-7) 7.0 See_Comment L [Au tomated message] The system [employer] generated this result transmitted ref erence range: 14.0 - 1 8.0 gm/dL. The refe rence range was not u sed to interpret this result as normal/abnor mal. Hct (test code = 21.7 % 40.0-54.0 L 4544-3) MCV (test code = 787-2) 88 fL 82-98 MCH (test code = 785-6) 28.5 pg 27.0-31.0 MCHC (test code = 32.3 See_Comment [Automate d message] 786-4) The system [employer] generated this result transmitted ref erence range: 31.0 - 3 6.0 gm/dL. The refe rence range was not u sed to interpret this result as normal/abnor mal. RDW-SD (test code = 50.4 fL 35.1-46.3 H 27618-2) RDW-CV (test code = 16.0 % 12.0-15.5 H 788-0) Platelet count (test 157 K/uL 140-440 code = 777-3) MPV (test code = 11.2 fL 4.0-10.4 H 44396-0) INRBC (test code = 0.8 % See_Comment H The INRBC (instrument 27649-6) NRBC) value ref lects the enumeration of nucleated red b lood cells contained in a 200uL sampleof whole blood analyzed by the instrument. Thi s value maydiffer from the NRBC value repo rted in a manual differential,wh ich is based on a 100 cell differential. [Automated mess age] The system [employer] generated this result transmitted ref erence range: <=0.0. T he reference range was not used to int erpret this result as normal/abnormal . Lab Interpretation Abnormal (test code = 99014-6) [facility] OmahaRenin [id number] 21:17:18 Test Item Value Reference Range Interpretation Comments Renin <0.6 ng/mL/hr -----REFERENCE Activity-[place] VALUE--------- (Pe (test code = ripheral vein s pecimen)Na-deplete, 2915-7) upright: Mean: 5.9 Range: 2.9-10.8Na-repl ete, upright: Mean: 1.0 Range: < or =0.6-3.0 ----ADDITIONAL INFORMATION---- Test ing performed b y Liquid Chromatography- Tandem MassSpectrometr y (LC-MS/MS).This test was develo ped and its performance characteristics determined by [facility] in a man ner consistent with CLIArequirement s. This test has not been cleare d or approved bythe U.S. Food and D rug Administration. Test Performed by:[facility] [address] [place], [place] [address]Lab Director: Zhang murray M.D. Ph.D.; CLIA# [id number] [facility] CenterGeneral Laboratory Add-On Test 2022-04-13 15:13:16 Test Item Value Reference Range Interpretation Comments Ordered (test code = 6568) Test Added Test Needed (test code = 7604) Phosphorous [facility] CenterNT-Pro BNP (In-House)2022-04-13 02:03:22 Test Item Value Reference Range Interpretation Comments NT ProBNP (test code = 1432 pg/mL See_Comment H [Aut omated message] 16489-1) The system [employer] generated this result transmit mary reference range : <=125. The refe rence range was not u sed to interpret th is result as normal/abnormal . Lab Interpretation Abnormal (test code = 96453-8) [facility] CenterAldosterone [id number] 22:04:45 Test Item Value Reference Range Interpretation Comments Aldosterone-Ma <4.0 See_Comment -------ADDITIONAL yo (test code INFORMATION--- Refe = 1763-2) rence range for patients 11 years and older is ba sed onupright A.M. collection from subjects without sodiumrestricti ons.This test was developed and i ts performance characteristics determined by [facility] in a man ner consistent with CLIArequirement s. This test has not been cleare d or approved bythe U.S. Food and D rug Administration. Test Performed by:[facility] R[address] [facility] [address] [place], [place] [address]Lab Director: Zhang murray M.D. Ph.D.; CLIA# [id number] 2 [Automated message] The [employer] stem which generated this result transmitted reference range : <=21. The reference range was not used to interpret this result as normal/abnormal . [facility] HyhovtHhfdlthcsxrm0638-29-89 19:06:01 Test Item Value Reference Range Interpretation Comments Neutrophil % (test 70.7 % 42.0-66.0 H code = 770-8) Lymphocyte % (test 14.8 % 24.0-44.0 L code = 736-9) Monocyte % (test code 8.1 % 2.0-7.0 H = 5905-5) Eosinophil % (test 4.6 % 1.0-4.0 H code = 713-8) Basophil % (test code 0.7 % 0.0-1.0 = 706-2) IGRE % (test code = 1.1 % 0.0-0.4 H IGRE % c ount 23268-7) includes Metamyelocytes, Myelocytes, and Promyelocytes. Neutrophil Abs (test 2.01 K/uL 1.70-7.30 code = 751-8) Lymphocyte Abs (test 0.42 K/uL 1.00-4.80 L code = 731-0) Monocyte Abs (test 0.23 K/uL 0.08-0.70 code = 742-7) Eosinophil Abs (test 0.13 K/uL 0.04-0.40 code = 711-2) Basophil Abs (test 0.02 K/uL 0.00-0.10 code = 704-7) IG Abs (test code = 0.03 K/uL 0.00-0.04 58819-7) PEDRO LUIS (test code = PEDRO LUIS) With the next BMP Lab Interpretation Abnormal (test code = 70480-1) [facility] [place].KNT5677-24-34 19:05:57 Test Item Value Reference Range Interpretation Comments WBC (test code = 2.8 K/uL 4.0-11.0 L 6690-2) RBC (test code = 2.51 See_Comment L [Automated 789-8) message] The sy stem which generated this result transmitted reference range : 4.50 - 6.00 M/u L. The reference r jackie was not used to interpret this result as normal/abnormal . Hgb (test code = 7.3 See_Comment L [Automated 718-7) message] The sy stem which generated this result transmitted reference range : 14.0 - 18.0 gm/ dL. The reference r jackie was not used to interpret this result as normal/abnormal . Hct (test code = 22.0 % 40.0-54.0 L 4544-3) MCV (test code = 88 fL 82-98 787-2) MCH (test code = 29.1 pg 27.0-31.0 785-6) MCHC (test code = 33.2 See_Comment [Automate d 786-4) message] The sy stem which generated this result transmitted reference range : 31.0 - 36.0 gm/ dL. The reference r jackie was not used to interpret this result as normal/abnormal . RDW-SD (test code = 48.1 fL 35.1-46.3 H 21808-7) RDW-CV (test code = 15.1 % 12.0-15.5 788-0) Platelet count (test 109 K/uL 140-440 L code = 777-3) MPV (test code = 10.6 fL 4.0-10.4 H 98871-3) INRBC (test code = 0.0 % See_Comment The INRBC 12744-8) (instrument NRB C) value reflects the enumerationof nucleated red b lood cells contained in a 200uL sampleo f whole blood analyzed by the instrument. Thi s value maydiffer from the NRBC v alue reported in a manual differential,wh ich is based on a 1 00 cell differenti al. [Automated mess age] The system [employer] generated this result transmit mary reference range : <=0.0. The reference range was not used to interpret this result as normal/abnormal . PEDRO LUIS (test code = PEDRO LUIS) With the next BMP Lab Interpretation Abnormal (test code = 62078-7) [facility] CenterFractionated Xmgcytwod9517-53-04 16:00:36 Test Item Value Reference Range Interpretation Comments Bili Total (test code 0.8 mg/dL See_Comment Indocy anine Green = 1974-07) (ICG) may cause falsely elevate d bilirubin resul ts. Total and direc t bilirubin must not be measured from s amples containing indo cyanine green. False el evation of total biliru bin can be seen in oscar ents with IgG concentrations above 28 g/L. [Automa mary message] The sy stem which generated this result transmit mary reference range : <=1.2. The refe rence range was not u sed to interpret this result as normal/abnor mal. Bili Direct (test code 0.4 mg/dL See_Comment H Indoc yanine Green = 1967-12) (ICG) may cause falsely elevate d bilirubin resul ts. Total and direc t bilirubin must not be measured from s amples containing indo cyanine green. [Automat ed message] The sy stem which generated this result transmit mary reference range : <=0.3. The refe rence range was not u sed to interpret this result as normal/abnor mal. Bili Indirect (test 0.4 mg/dL 0.0-0.9 code = 1970-06) Lab Interpretation Abnormal (test code = 46010-3) [facility] CenterAlbumin Sibyt7725-46-61 16:00:33 Test Item Value Reference Range Interpretation Comments Albumin Lvl (test code = 2.7 See_Comment L [A utomated message] 1750-12) The system [employer] generated this result transmitted ref erence range: 3.5 - 5. 2 gm/dL. The refe rence range was not u sed to interpret this result as normal/abnor mal. Lab Interpretation (test Abnormal code = 02516-9) [facility] Medical CenterAspartate Aminotransferase 2022-04-11 16:00:31 Test Item Value Reference Range Interpretation Comments AST (test code = 36 U/L See_Comment [Automated message] The 1920-01) system which ge nerated this result transmit mary reference range : <=40. The reference range was not used to interpr et this result as shavon l/abnormal. [facility] Medical CenterTotal Zbdejqi4788-20-86 16:00:30 Test Item Value Reference Range Interpretation Comments Total Protein (test code = 2885-2) 5.1 g/dL 6.4-8.3 L Lab Interpretation (test code = Abnormal 10027-0) [facility] CenterAlkaline Mutmmvkfkxy5154-70-16 16:00:28 Test Item Value Reference Range Interpretation Comments Alk Phos (test code = 6768-6) 85 U/L 40-129 [facility] CenterALT2022-11-08 16:00:26 Test Item Value Reference Range Interpretation Comments ALT (test code = 18 U/L See_Comment [Automated message] The 1741-11) system which ge nerated this result transmit mary reference range : <=41. The reference range was not used to interpr et this result as shavon l/abnormal. [facility] CenteraPTT2022-11-08 11:06:42 Test Item Value Reference Range Interpretation Comments aPTT (test code = 60.3 See_Comment H [Automate d message] 74110-2) The system [employer] generated this result transmitted ref erence range: 22.8 - 3 4.2 second(s). The reference range was not used to int erpret this result as normal/abnormal . Lab Interpretation (test Abnormal code = 80951-0) [facility] Medical CenterVitamin D [id number] 22:45:50 Test Item Value Reference Range Interpretation Comments Vitamin D 25 OH (test 62 ng/mL 30-100 Refere nce Range: code = 85911-9) Deficiency: <10 ng/mLInsufficie ncy: 10-29 ng/mLSuff iciency: 30-100 ng/mLPot ential toxicity: >100 ng/mL [facility] CenterPathology Surgical Interpretation 2022-04-10 15:03:41 Test Item Value Reference Range Interpretation Comments Submitted Clinical History s2ekbQDaXRZkb8tjVG (test code = 54915) VmbGFuZzEwMzNcZnRu YmpcdWMxIHtccnRmMV ivn3XzT8BhDqHgRKqv bnNpXGRlZmxhbmcxMD XeNUC9sbIkSBEfWTzk UWXpSYkxDb9meJOlbM kfVcCxZAGhw2jljdUJ ljabiQs0l4mxQZNgPz X8qYHnDTqtG3vajhFs kWFvBQBwGSn6gA13MI RqlP2rqTEoWAzmdvOf DfM2RSqlCKGfCdL5OS TqrQXpBTSbA1mjAKYf XGdyZWVuMFxibHVlMC C6bVkbh7E1sOFelYIz dHtcZjBcZnMyMiBOb3 CaMLx5fNkwX4CvXTLj CzY8yVPwAMBaDBazSO FxOYFiceP9cV28ORyh epT5bVUco0Ofl40wt1 74fA9edMVkNIE8YWYb WVYypMBcSGHvPAE4PM UokFSeP7qdKDVoIZ3p cmdyMTgwMFxtYXJndD L0BFBaoPCwP7DoFFTb AGzlSOGlzen0CrWkMo 8jjRTdyXhjEEcvy7ki z0jsoFYoAuo8JLVcBk ZhRyxlKSajp2Zjr2ok CCLmca3vDLT0zVCneE dbq3Q4kRUoEJLkmGPb btKxCWMeFaM3AAtaJS 1ois82HUVdTYZ8hl7v bGNccGdicmRyaGVhZF xhB7PcXVLmj340UQNw L7CbKKFpu7P6sbXhBx IaWFNnnDB9mgI4EZQo DOb0sMUrgzB6lxXcwL SlX0grjD0cGMDeKY7w bgxdh9jrAQeeHWtgTP WsiZL7snY0SSOsmSJc S2OuqW4iNUQxMLctQI Ynoxw1EoXbZx9vxXYk eTcyMFxzYmtwYWdlXH BnbmNvbnRccGduZGVj XHBsYWluXHBsYWluXG YwXGZzMjRccWxccGxh bT0jBqQlKkCjTWakBW 5uDXLyZ2rqwZIbNLWk WSScZ6nbDhZvwA8mzK ipEKvobiZcIREgbF9q pcaex2Q1HQ2qsUJsF8 GkcFRyCARmiM5lwTWh q1ClkJBjjM08NSfRRo BmOL3qwAceyO8wEoRl FtWyYucpHG5kONPoB3 ufkTHyLQDyVOQpM4yc ExPylJ3rsNuwPKrzlz KpDKWymr27 Diagnosis (test code = 34) n2bidMBwVFIfkTWxBT IwMlxhbnNpXHNwbHRw H5LrglnxRHjkVB0pZC 5veGxhdHRveWVuXGRl VlJji8wka135uYZnc8 qfVAEWzsmflKh7iEwq V99xq0V9YatyV5rtDC QwXGdyZWVuMFxibHVl EEk0ZDEowGKtuiAjGi FxYGPdyXRfrAA1EYYh WL3qkfahBPgxALcvFZ CrnvP8RHTvaPQpX9An IRZbHP1ebqdzTCB7HR tpNSHzPNR4DgZjLSXn o4Rrtfr7HsNchYIiJZ xwbGFpblxmczIwXGNm SBPDXuAXi1AusLXzLC R4qiftL4AfnWhwm0a2 aCBhbnRlcmlvciBlc2 1gpYQoLWZ4y198Yifz RRFsbPx0CvAufVhqHj IwXGNmMCBIeXBlcnBs YXNpYSBhbmQgcGFyYW xqroP0t3MzpsXvfkUy w9CgkQOpd9YsFISjFy Vss4etBQJnmaP0xtGq rP0fjjSlTBHeHCA2Hd rgRSNhUj9jzNFme0Dm iCJhj0FwyD7lxOOqGJ amUOlojA0jBRXsococ ZjEgQjogTWlkbGluZS PwdDLjTWX4ASSlQSkh t43qeEV9vOWwkRO6JN DtewvusTsyMGfscN56 EiYyW4DvTWGfSJbcEK 67umBfDpIrmHWla9Yv wQWyr2PlkScfc2GkZS hocBkxE0qbx45uAbJu pqMhOY1rMPZvg69rGL 1iW6D3eWEcZBBqvxMr CKfaV7EqD2waFHLyua ESlB31rXGoWqUsP02c tzOax6KfU6BijNihRJ dlIHByZXNlbnQuXHBh ciAgXHBhclxsaTBcbG uoTWWHQZ3pNkJECJZs cn0= Gross Description (test r7sfaVZfEBKvqWMHOG code = [id number]) TzUCMmIW3oyHmraNk3 lFheFGZxkyY9rVYjCW zrt5rvFIL9u0mzavEM KquvNYQfIN8gFCeuBK IbWT8eTdVtKSFdMwMw XHBhcGVydzEyMjQwXH WhhVVtwMY1PYFaOS3p cmdsMTgwMFxtYXJncj L9QNKciRTnP0JtEEDu FZ0pbvqcDKH4JSKRMr ghLe7ylPXpyFfjDzFe ZmNoYXJzZXQwXGZuaW meKUCmOKb8vK0OYpnf J82ll8G6Hpo2MTTtOR NkK2OhKO8aOFDaqUSt P90NYmbaERL1BAVCFl zoHqkqjTfli4YbaVAq XHNnIFxcaWQgNTEwMD AgXFxkYiBPVlIgIiAx LBB1YwP2HgW5ZVk8PH BSRVEgMzMzMDMyNCA5 LHi0SIDaAC3qMJxibM NpLCkwTjorVTctY479 YMcuFVSmH8PoV5PlSH xzZyBcXGlkIDUxMDAy AHclCCWmV8HDAGAgPM ExWWf7VDQoTIl9MKjy J6UWBEHuGCS3PhNyVM HzKnD4NLa6VVCJTw7o JRL4EUV2WMrsUVL5DZ ExNiBcXHQgMiBcXHNz CJVnTXnmqCYsSK9iyB jvMITrKE7QWWMxUMxt XGJcZnMyMCBBOlxwYX IgDQpccGFyZCANClxw bGFpblxiXGZzMjBccG crjI5xjMCiD1wgZgFh MlxlcGljTmVzdERvYz EgDQpcbHRycGFyXGxp bjBccmluMCANClxiXG NmMVxmczIwIExhcnlu dVrpcO59LVvgtDObmP 4nNQE5a579GRbalIgc QT07IVJls1DtUGYjgU udL0UzvC3dlLBuYZTy VSWcTQ1uVkaoQrYqV6 OiSMIHu18hoCP8wqDb ZiBhIHRvdGFsIGxhcn gjH3NgaM5vdOXfRQDx dRJbbqayLR67YAkoLL 66RJygLA08UCVmCuYM qQNlMJ92GFJak3XsST MgXWT7EGkiMOEuaHWh x7EsyYUoEq4nNGAewB 9xlKhpwxNkVeRgx72u aGFndXMgKDMuMiBjbS HwgeXoOL8eyPqbFboq Ks25CXOuSBhzBUGzPR 3srIWgSC7kgUOxPQ8M KWKoRfOPfZHof3Bxki IplC33oMfpHORfA0io laXhytJjYA3kwrfyVi ysFEQtapUsCFEeks22 fGx9USYzJHMau75cMR AgcMXwy9BfmGY9bVZh BVLhT2Che80sWLZ8Kc 1bgMWtTT6loPPnRX0U HPSaGiEwBGStI1djJL HiCI5MLNLxEsYIAZYD PM4COZHLIYH3EIOaEG EhyHNrx8ZgXFGjtLut eQJvce0dc9qjvAW0MI McBDE4QEOeGOXrGYQl poFjfDo1XLNxGUC8yR 8pig5cJSZFEIyox8Is CVWagRJGw7AxDC4BQR TvvQITYSN6TJ5hNAfl MIJbO2RtX4UjxwU8KO BhciANCntcKlxlcGlj n9BwnABvWXEcADttqK QgNTEwMDIgXFxkYiBP IuOxCgZrEBY6QzZ4Yw I4YMe3ZMUFNxQqBfYv LQMpMMH6BPxzCDp5DO g6ULlHAxQaHQd5OwEw ROHkFVA7UKS4UOcytF UdHSujg0FvNyRqKEGc HJuzjuR1TAMdQJA8OT SkhHYEl2LfMTStDXyh ZnMyMlxiXGZzMjAgQj ozkESfXE1FFYFctyLx CWindTuzfT5oiTMmL0 hcYlxmczIwXGIwXGZz DpKgBIZoA06lf5ZBj5 LcJD8ZROt8tnXuyzdk yE0aBSLzupIyg0DhON uevUhfZMJmMpBxx4Re MFxlcGljWHNhMzAgDQ pcYlxjZjFcZnMyMCBP dGhlciwgbWlkbGluZS YzcBCwWNR7VKDaBNmd z46gbKS3fBYevFGoNC ZjXJOvBJGtmgPvB4Qw IDpcYjAgIENvbnNpc3 SoQX0vMUBlt5RbeBIw sRHkIjX6xu5zvCBcyU RnJPFeMN5daS7zHKEq WqKkyMuih6DmOC0dIS R3qptxIxAtEiZpiXOc NkKikVWjFeRjI82dLR ZHvFSfgS1sieWmxtBe SISiQXyvvNZnFGS8aE 9bIZHskI8koqS0JAFo IGEgdGFuLXBpbmsgdG 8gdGFuLXdoaXRlIHNs uOswiAu9BPMuRjXjfW ebXXL8dRGzgMVyOVQs IGFuZCBpcyBzdWJtaX M0WBWuML53uFAryAel vE8rH5Bfm8Q6yZGmBN XsCWKnHdWbQRYpu8Ks T7J1LFHmBQiea1wbIV EvESefj8MfFGyJKESL MA2SKL2ywNI4RSgMP7 SDX5aIsHUzUCM5kAH1 ZXGXZlbifKH1fDI3jF 17XGZsZHJzbHQgXCcx Z675IVE4BNNlBAnqs4 dxDVFdAGbun0DkWTaY BLDADK5UBF5haUQ2FQ pJD1CYHNbvKFBlNplt vXSWKFP5YOfojZrhpU q9f4zgbPIvy3q6LWtb MZF0dZkebRWztlpfdJ MmqNzkhsVfOE0OEGQe cmRcbHRycGFyXGxpbj BccmluMCANClxlcGlj QzNlvBHaSiT0FMKnvY IdQMO5VK6lwHtfUHNo M6PfD5LkcjL4YLNfrn LCFqgkuuFlUB8CmD== Intraoperative Evaluation c2dzpMLaLXYjcIJVTX (test code = [id number]) YfVRSbZR6xuVzyhYk1 oTvjRBEnrcE0aUNlTP gnv8smJGZ1w9pfqgML YpprLUAyRD5zWPjjLA OlBJ4pAhFhBSJhEaQh XHBhcGVydzEyMjQwXH PsaDOszKX9JPUfFV3m cmdsMTgwMFxtYXJncj V3HQAogBRiY2XmGEQe YC0jyefkJSS0VAOFXx zjGj8aaRXwgDrzFtGn ZmNoYXJzZXQwXGZuaW bnAXTxMJe6qJ9DNhgn J69pu3F6Ohr4EUKxZX KdB9NjZM2aUKYecAQw Q71QMkkcGYI0CIPPAb fkCuxzfJndt7SntMEm XHNnIFxcaWQgNTEwMD EgXFxkYiBPVlIgIiAx NBN2ZkQ9HnZ4RXu0SO BSRVEgMzMzMDMyNCA5 QCc2SHUuKY6iSAcqjW TbHCdmEjfzJLjvN192 KNruNXIqS0BsK0KdHP xzZyBcXGlkIDUxMDAy XDbaYYXiZ9WRGUJdPY JbZUu4YUTdVYp4RQcs F0SUREPlFKF3LpWkJD SeYzK1YQd1XYOKId4j VBU9SNG2MqQ8VhB0HT ExNiBcXHQgMiBcXHNz BGNrCJkweFCoIO2oxB dkQARlMZ3FUWRpCRgh XGJcZnMyMCBBOlxwYX IgDQpccGFyZCANClxw bGFpblxiXGZzMjBccG ruzL9myLChW5nkNtBy MlxlcGljTmVzdERvYz EgDQpcbHRycGFyXGxp bjBccmluMCANClxiXG NmMVxmczIwIExhcnlu pKftkN33PTbfrUJocG 5dLYJ4v152ECyvjAad RF56CGEkm9ZsWLJdtQ poS2SzzG1asVFmKOLp FGGrYO6tAaoyqXGiPM 0KXGxpNzIwXGxpbjcy MFxzYTMwXGVwaWNYc2 EzMCANClxiMFxjZjAg Npjldr7kaMSnTJ4mPE Gpxy1uxMQswN5uzAIy nW1ziJdrxk4nHUBFZF juo8JhGSDkuANPk4Pk MF4NJCLqzSDSUJT4HZ 8aVTatKUUwO6FbK8Gd vbK4n8xciYizy8OtkO JcYO3thWLmDN5QKCIn cmQgDQpcZnMyMiANCn 0= Biomarker Block(s) (test m1tnsUXtMHJhxTQyPG code = 9841) IwMlxhbnNpXHNwbHRw V0CgpyjvNKgtZH8kAC 5veGxhdHRveWVuXGRl LbUsp1qna789tFVkw8 ltPRPRwtuymWm5xUnl I66yo1V9NvwwE00cjQ TlLGF2DJYwGIXkeRZc YYPdHPU5KBGboUGwT4 boZCGwXE9qmwymNOcf VAwpYKGlbRI8MTZevW HxH6DpMHKhSObuMTTu xmj1XmJuJl2asBZrzE cyMFxwYXJkXHBsYWlu AHQaWjShRv0XDPCzwu 0= Disclaimer (test code = e1cieTImSGPpyAKrAa 9844) KbLWVlEMOwj6xpASDq bGFuZzEwMzNcZnRuYm ojoMJlGKNgYtVxp4kg n432rTJrt4iyLAZqVo L7nWSyEMCdsCPcL297 DYWzFJzpa7ybu0OkLA RfaOUpg9B1DBUZdhyd yEk8jYgmX55ts8S0Xo okS2tbXBBeEYEwB3Bb XY4zGABkAsn0TYD9MO Y1BMRdKEMwF9IpDU8l GPBryVXfWCm1o9fcgM iqEQAsUUN0d5pqXBvq ylQzAF3uyc1uoVf3z5 xjczEgRGVmYXVsdCBQ CVFzG2HitBifVe1zpQ q8nWuaLpaqBVF6Ldc5 KI4prw59hjy4gYopFS RnupojKkK0WBflYMNq njqqXDe4UGnaJVLvwR R6BZOpnMHhL4QyFUMn ZI9bhhp1ABF6OCevLS XeUsK6VFOonCEdHBCa pZylMFxlt539YQO2Tp FiUI9tK9Oys1A5hW7r aXRcZGVmdGFiNzIwXG Ming8xwQSfHRdai8Se BCB1auF9gQRohJZjUV SyLG01Hqfml5XcFbre IUT4FCXhpfFyd3Jhr0 ocWuZywbGgD9jcI9Ug ZHJoZWFkXHBnYnJkcm Ooa8Vsa1YkiTHuwSj9 s8rgZZRuJYMutCuem8 jiDGN1YNVyQ8Z3fKSg m5taEHrgRACewJI4he R1MCEurKEcM7RqmR6x BKVmUE1ajpe7m0ioGP H6WYbzGWCqCaW1ojD3 NDBcaGVhZGVyeTcyMF jzm962QOO2MzSdFYAg s5BaA2TqyIevW98fiF ziQ49aVVYkaZrrhN6u aNxhlK3rAoMyAkEdKO xxbFxwbGFpblxmMVxm joF1ANgufkibLIQeDL ikO3cxMiHeHZBkzOxx IXkmn0ArBLPoQNUdRv keccV7PWTFe25zKEWc p1GzSWMeiA0fnLFpJG tbsePieVF0ZTxkprDw WoEetzRkYMPemH4pXX ZbML2wXHSolhCylk1l ebHkKATaCPJcU3Rpzh gmyUzedaIiRSGzym1s lxKfOKY0JQOIDL2EPI YbPXGgu10xNVCcgAbp gP4qkFRcfoOvHSSds0 QsrW2axYLFNRKeD0tp IG1cKZyrm3ZisMBzxE NpsWE7QWNcy6NoRkEo zrDhaHVzhJWlV4NwgU wvT9taHFJoYZPqmmOs wYQfm6LyFTIffRH7pS EwDL1LRmSIe03jNPMf ZCBEcnVnIEFkbWluaX L3lwF5jQ3lTtRZVoTc cHBsaWNhYmxlLCBjb2 10ux3nxtT6MDXuENMi lvquy6VgOIPkIOMmvK 52BORmUXHalm8yhkvh jSIvtjJbT1Jqryf6wF 4iXHBsYWluXGYxXGZz MjJcbGFuZzEwMzNcaG ljaFxmMVxkYmNoXGYx HWfrX4rnTzFjUbWaZn xwYXJ9 [facility] CenterFree [id number] 13:59:12 Test Item Value Reference Range Interpretation Comments T4 Free (test code = 3024-7) 1.76 ng/dL 0.93-1.70 H Lab Interpretation (test code = Abnormal 99066-6) [facility] CenterTSH2022-11-07 13:59:11 Test Item Value Reference Range Interpretation Comments TSH (test code = 0.66 See_Comment [Automated message] The 68696-0) system which ge nerated this result transmit mary reference range : 0.27 - 4.20 mcunit/mL. The reference range was not used to interpr et this result as shavon l/abnormal. [facility] CenterTMP Interpretation Antibody Screen [id number] 13:10:36 Test Item Value Reference Range Interpretation Comments TMP Auto Neg At the present ABSC Interp time, patient (test code = plasma shows no ____KHANG KARIMI MD [id number]) evidence of RBC - [id number] mary by: alloantibodies. KHANG HUGGINS MD - [id number] D ate/Time: 04.06.2022 8:10 AM CDT Transcribed Rohan e/Time: 04.06.2022 8:10 AM CDTElectronical ly Signed By: KHANG DELGADO MD - [id number] on 8:10 AM C [facility] CenterAntibody [id number] 10:50:43 Test Item Value Reference Range Interpretation Comments ABSC. (test code = 890-4) Negative ABSC [facility] CenterABORh2022-11-03 10:50:42 Test Item Value Reference Range Interpretation Comments ABORh. (test code = 882-1) O NEG [facility] CenterClot Expiration [id number] 10:50:40 Test Item Value Reference Range Interpretation Comments T & S Expiration (test code = 04/09/2022 5318) [facility] CenterT42022-11-02 23:49:26 Test Item Value Reference Range Interpretation Comments T4 (test code = 5.4 See_Comment [Automated message] 3026-2) The system [employer] generated this result transmitted ref erence range: 4.5 - 11 .7 mcg/dL. The ref erence range was not u sed to interpret this result as normal/abnor mal. PEDRO LUIS (test code On arrival in PACU = PEDRO LUIS) [facility] CenterPTH [id number] 23:40:10 Test Item Value Reference Range Interpretation Comments PTH Intact (test code 49.8 pg/mL 15.0-65.0 = 6769) PEDRO LUIS (test code = PEDRO LUIS) On arrival to ICU or PACU [facility] CenterOR ABG+ (ABG, Na, K, Cl, Glu, Hct, Lactate, Ion Ca)2022-04-05 18:55:29 Test Item Value Reference Interpretation Comments Range OR Sodium, arterial 144 See_Comment Methodol ogy: The ABL90 (test code = [place] [address]-8) an in vitro eve gnostic portable, autom ated analyzer that m easures electrolytes in whole blood. This husam lyzer uses potentiome try to measure K+, Na+ , and Cl-. The potent ial of an electrode ch ain is measured by a voltmeter, and related to the concentr ation of the sample. [Automated mess age] The system [employer] generated this result transmitted ref erence range: 136 - 14 6 mEq/L. The refe rence range was not u sed to interpret this result as normal/abnor mal. OR Potassium, 3.0 See_Comment L Methodology: T he ABL90 arterial (test code Flex Plu s analyzer is = 26008-3) an in vitro eve gnostic portable, autom ated analyzer that m easures electrolytes in whole blood. This husam lyzer uses potentiome try to measure K+, Na+ , and Cl-. The potent ial of an electrode ch ain is measured by a voltmeter, and related to the concentr ation of the sample. [Automated mess age] The system [employer] generated this result transmitted ref erence range: 3.4 - 4. 5 mEq/L. The refe rence range was not u sed to interpret this result as normal/abnor mal. OR Chloride, 106 See_Comment Methodology: Th e ABL90 arterial (test code Flex Plu s analyzer is = 39303-2) an in vitro eve gnostic portable, autom ated analyzer that m easures electrolytes in whole blood. This husam lyzer uses potentiome try to measure K+, Na+ , and Cl-. The potent ial of an electrode ch ain is measured by a voltmeter, and related to the concentr ation of the sample. [Automated mess age] The system [employer] generated this result transmitted ref erence range: 98 - 106 mEq/L. The reference r jackie was not used to interpret this result as normal/abnor mal. OR Glucose, arterial 119 mg/dL 70-105 H Methodo logy: The ABL90 (test code = [place] [address]-6) an in vitro eve gnostic portable, autom ated analyzer that m easures metabolites in whole blood. This husam lyzer uses amperometr y to measure glucose and lactate. The ma gnitude of an electrica l current that fl ows through an elec trode chain is propor tional to the concentr ation of the substanc e that is oxidized or reduced at an electrode in the chain. OR Hemoglobin, 12.0 g/dL 13.5-17.5 L Methodology: The ABL90 arterial (test code Flex Plu s analyzer is = 98078-1) an in vitro eve gnostic portable, autom ated analyzer that m easures hemoglobin in [facility] blood. This husam lyzer uses spectropho tometry to measure hemo globin. Light passes th rough a cuvette that co ntains a hemolyzed blo od sample. Hematoc rit is derived from th e total hemoglobin mult iplied by the standard value 0.0301. OR Hematocrit, 37 % 42-52 L arterial (test code = 66653-0) OR Lactate, arterial 0.6 mmol/L 0.4-0.8 Methodo logy: The ABL90 (test code = 2518-9) Flex Pl us analyzer is an in vitro eve gnostic portable, autom ated analyzer that m easures metabolites in whole blood. This husam lyzer uses amperometr y to measure glucose and lactate. The ma gnitude of an electrica l current that fl ows through an elec trode chain is propor tional to the concentr ation of the substanc e that is oxidized or reduced at an electrode in the chain. OR Ion calcium, 1.20 mmol/L 1.15-1.29 Methodology: The ABL90 arterial (test code Flex Plu s analyzer is = 20616-0) an in vitro eve gnostic portable, autom ated analyzer that m easures electrolytes in whole blood. This husam lyzer uses potentiome try to measure Ca2+. T he potential of an electrode chain is measured by a voltmeter, and related to the concentr ation of the sample. OR pH Art (test code 7.46 7.35-7.45 H = 2744-1) OR pCO2 Art (test 38.9 See_Comment [Automate d message] code = 2019-8) The system [employer] generated this result transmitted ref erence range: 35.0 - 4 8.0 mmHg. The refer ence range was not u sed to interpret this result as normal/abnor mal. OR pO2 Art (test 247 See_Comment H [Automated message] code = 4473-7) The system [employer] generated this result transmitted ref erence range: 83 - 108 mmHg. The reference r jackie was not used to interpret this result as normal/abnor mal. OR HCO3 Art (test 28 mmol/L 21-28 Methodolog y: The ABL90 code = 1960-4) Flex Plus husam lyzer is an in vitro eve gnostic portable, autom ated analyzer that m easures electrolytes in whole blood. This husam lyzer uses potentiome try to measure K+, Na+ , Cl-, and HCO3. The potential of an electrode chain is measured by a voltmeter, and related to the concentr ation of the sample. OR Anion Gap, 11 mmol/L 7-16 Methodology: T he ABL90 arterial (test code Flex Plu s analyzer is = 9327) an in vitro eve gnostic portable, autom ated analyzer that m easures electrolytes in whole blood. This husam lyzer uses potentiome try to measure electro lytes. The potential o f an electrode chain is measured by a voltmeter, and related to the concentr ation of the sample. Anion gap is derived as the difference betw een the concentration o f cations and ani ons. OR Base Excess Art 3 mmol/L -2-3 (test code = 1925-7) OR O2 Sat Art (test 100 % 95-99 H The ABL9 0 Flex Plus code = 2708-6) analyzer is a n in vitro diagnosti c portable, autom ated analyzer that m easures pH, blood gas, electrolytes, hemoglobin, glu cose and lactate in whole blood. This husam lyzer uses the method ologies noted to perfor m quantitative measurement of the parameters list ed when tested or as no mary with indicated analytes.1) K+, Na+ and Cl-, Anion Gap, Glucose, Lactat e, Hemoglobin, and HCO3 -NOTE: Methodol ogy is noted with spec [facility] analyte(s) when reported.2) pH and pCO2 are measur ed by potentiometry. The potential of an electrode chain is measured by a voltmeter, and related to the concentr ation of the sample.3 ) pO2 is measured by optical pO2. The optica l system for pO2 is based on the ab ility of O2 to reduce the intensity and t wolfgang constant of the phosphorescence from a phosphorescent dye that is in cont act with the sample .4) sO2 is measured by spectrophotomet ry. Light passes th rough a cuvette that co ntains a hemolyzed blo od sample. The abs orption spectrum is use d to calculate oxime try parameters. FLOW/ FiO2 (test see note code = 5568) Art Draw Site (test Art Line code = 4824) Art Taurus Test (test Not Performed code = 09209-0) Lab Interpretation Abnormal (test code = 29097-1) [facility] CenterTMP Interpretation Crossmatch 2022-04-05 17:45:37 Test Item Value Reference Range Interpretation Comments TMP XM Interp RBC units (test code = crossmatched for 7566) transfusion appear MELIDA KARIMI MD - [id number] b y: KHANG REYNOSO MD - [id number] Date/Time: 12:45 PM CDT Transcribed Rohan e/Time: 04.05.2022 12:4 5 PM CDTElectronical ly Signed By: HERO KARIMI MD - 2005 on 04.05.2022 12:4 5 PM [facility] CenterPrepare RBC:2022-04-05 16:50:00 Test Item Value Reference Range Interpretation Comments Unit Number (test [id number] code = 7002) Product Code (test [id number] code = 7003) Unit Expiration (test code = 689474) Unit Blood Type 9500 (test code = 7004) Product Code Text RBCIRLR CPD AS1 (test code = 500mL ) Crossmatch Expiration Date (test code = ) Unit Irradiated IRRADIATED (test code = 711486) Dispense Status ISSUED (test code = 7001) Unit Blood Type O Negative (test code = 7005) Product Vp Biology .BPAM ____ Location (test ___ code = 385536) ___ ____ [facility] CenterCOVID-19 (SARS-CoV-2) PCR- Asymptomatic [id number] 06:17:22 Test Item Value Reference Range Interpretation Comments COVID19 (SARS Not Detected Not Detected CoV-2) Result (test code = ____[place] 26052-7) qualitative reverse-transcr iptase polymerase mario alberto n [...] patients provid ed by the manufacture r ([employer]) c an be reviewed at:https://www. fda.go v/media/561319/ jose ad. A fact shee t for Health Care pro viders is provided by the kaiako kura tuarua ([employer]) and can be reviewed at: https://www.fda .gov/m edia/760853/denys nload Results must be interpreted wit hin [...] were verified by the Microbiology Laboratory at [facility], CLIA Accreditation # : [id number] and CAP Accreditation # : [id number]. COVID19 SARS JET WORKER Swab Source (test code = 93613) COVID19 SARS Pre-OR Procedure Indication (test code = 10392) [facility] CenterPotassium [id number] 18:10:19 Test Item Value Reference Range Interpretation Comments Potassium Lvl (test 4.6 See_Comment Testing Performed at [facility] code = 2823-3) [facility], [address], [place] [address] [Automated mess age] The system which ge nerated this result tra nsmitted reference range : 3.5 - 5.1 mEq/L. The reference range was not u sed to interpret this result as normal/abnormal . [facility] CenterTMP Interpretation Exception PreOp [id number] 13:21:49 Test Item Value Reference Interpretation Comments Range TMP Exception Patient's pre-op Type ____ (test code = and Screen shows no 7543) evidence of RBC AD CHRISTIANA alloantibody(ies). ELVIA PERAZA CLINICAL INFORMATION MILAGRO, Dictated by: PROVIDED BY THE BELA [facility]ESTHESIOLOGISTS AND DAVID VO PATIENT WOULD ALLOW Miguel HUMPHREY ictated FOR THIS SAMPLE TO BE Date/T wolfgang: 03.29.2022 USED UP TO 30 DAYS FOR 8:21 AM CDT TYPE AND SCREEN FOR Transcri bed SURGERY ONLY. Date/Time: 8:21 AM CDTElectronical ly Signed By: EULALIA HUMPHREY on 03.05 8:21 AM C [facility] CenterGlucose, [id number] 20:18:04 Test Item Value Reference Range Interpretation Comments Glucose Random (test 154 mg/dL 70-199 Effecti ve 12/29/15, the code = 2345-7) glucose refer ence intervals have been updated based o n [place] [employer] rommel delines (Standards of M edical Care in Diabete s 2016. Diabetes Care 2 016; 39: S13-S22).Fastin g blood glucose:Normal: 70-99 mg/dLImpaired f asting glucose (increa sed risk for diabetes or pre-diabetes): 100-125 mg/dLDiabetes m ellitus: >/=126 mg/dL Ra ndom blood glucose:N ormal: 70-199 mg/dLNot e: Random glucose >100 mg /dL is associated with increased risk for diabetes [facility] CenterHemoglobin [id number] 19:51:18 Test Item Value Reference Range Interpretation Comments A1C (test code = 5.3 % 4.3-5.6 HbA1c value s >=6.5% are 4548-4) diagnostic of d iabetes mellitus.Diagno sis should be confirmed by repeat testing.Therape utic Action suggested: >8.0 % HbA1c; Goal oftherapy: <7.0% HbA1c [facility] CenterPOC [id number] 16:17:03 Test Item Value Reference Range Interpretation Comments POC A1C (test code 5.5 % 4.3-5.6 Method de scription: = 4548-4) All results are measured using boronate affini ty chromatography for the determination o f the percentage of H bA1c in human whole blo od. The blood sample is automatically d iluted and mixed with a solution that r eleases hemoglobin from the erythrocytes. T he cis-diols of th e glycated hemogl obin in the patient melissa ple binds with the reagent, a blue boronic acid conjugate. By measuring the reflectance in the sample, the jasbir e (glycated hemog lobin) and the red (to nallely hemoglobin) col or intensities are evaluated. The ratio between the jasbir e and red color inten sities is proportional to the percentage of H bA1c in the sample. Performing Lab [facility] (test code = [facility] [address]) Clinical Lab, [address], [place], [place] [address]; Senior Systems Architect: Paty Chavez MD [facility] MD [place] [facility] [id number] 12:22:17 Test Item Value Reference Range Interpretation Comments POC Crea (test code 0.6 mg/dL 0.6-1.3 Medicati ons, especially = 97870-6) hydroxyurea or supplements, gomez ch as ascorbate, can interfere with test results causing a falsely and significantly h igher result than exp ected. If a problem is suspected with a patient's resul t, a sample should b e sent to the laborato ry for confirmatory te sting. Method descript ion: The i-STAT is an an alyzer used for in vit ro quantification of various analyte s in whole blood. Th e device uses a single disposable cart ridge which contains microfabricated sensors, a katy bration solution, fluid ics system, and a w aste chamber. Each t est cartridge conta ins chemically sens itive biosensors on a silicon chip that are configured to p erform specific tests. The microfabricated sensors measure analyte concentration b y an electrochemical assay. POC EGFR (test code 102 See_Comment The eGFR cr is = 68043) calculated with the 2020 CKD-EPI cr eatinine equation using creatinine, pat ient's age, and sex fo r adults 18 years of age and older. Other fa ctors, especially musc le mass, may affect accu racy and need to be considered.Acco rding to the Kidney Dise ase: Improving Globa l Outcomes (KDIGO ) CKD Work Group 2012 Clinical Practi ce Guideline, monotyper arsalan kidney disease (CKD) is defined as the abnormalities o f kidney structure or fu nction, present for mor e than 3 months, with implications fo r health. CKD jean uld be classified by c ause, GFR category, a nd albuminuria cat egory. KDIGO guideline s provide the fol lowing GFR categoriesS tage Description GFR mL/min/1.73 m2G 1* Normal or high >= 90G2* Mildly decrease d 60-89G3a Mildly to moderately decr eased 45-59G3b Modera tely to severely decrea sed 30-44G4 Severel y decreased 15-29 G5 Kidney failure <15*In the absence of evidence of kidney damag e, neither G1 nor G2 fulfill criteri a for CKD. [Automated message] The sy stem which generated this result transmit mary reference range : >=60 mL/min/1.73 sq. m. The reference range was not used to interpr et this result as normal/abnormal . POC Clean Dev (test Yes code = 6672) Performing Lab [facility] (test code = 22752) [place] [facility] [place], [address], [place], [place] [address]; Point of Care L ab Director: Brooke valencia MD [facility] CenterPOC-Glucose [id number] 12:57:02 Test Item Value Reference Range Interpretation Comments POC-Glucose Meter (test 245 mg/dL 70-110 H : TE STED AT [facility] code = 1538) [address] [facility], [address]: Energy Systems Engineer/Techni samuel ID = [id number] for Maik De La Garza Gene sis Lab Interpretation (test Abnormal code = 20559-5) [facility] [id number] 12:57:02 Test Item Value Reference Range Interpretation Comments POC-Glucose Meter (test 245 mg/dL 70-110 H : TE STED AT [facility] code = 1538) [address] [facility], [address]: Energy Systems Engineer/Techni samuel ID = [id number] for Vidal Hernandez sis Lab Interpretation (test Abnormal code = 50614-5) [facility] HospitalPOCT[facility]GLUCOSE [id number] 12:57:02 Test Item Value Reference Range Interpretation Comments POC-GLUCOSE METER 245 mg/dL 70-110 H : TESTED A T [facility] [address] (BEAKER) (test code [facility], = 1538) [address]: Energy Systems Engineer/Techni samuel ID = [id number] for Mary De La Garza Gene sis POCT-GLUCOSE [id number] 12:55:23 Test Item Value Reference Range Interpretation Comments POC-GLUCOSE METER 288 mg/dL 70-110 H : TESTED A T [facility] [address] (BEAKER) (test code [facility], = 1538) [address]: Energy Systems Engineer/Techni samuel ID = [id number] for Mary De La Garza, Gene sis HEMOGLOBIN AND [id number] 09:18:10 Test Item Value Reference Range Interpretation Comments HEMOGLOBIN (BEAKER) (test code = 9.8 GM/DL 13.7-17.5 L 410) HEMATOCRIT (BEAKER) (test code = 30.5 % 40.1-51.0 L 411) Energy Systems Engineer ID - [id number]-GLUCOSE [id number] 05:57:27 Test Item Value Reference Range Interpretation Comments POC-GLUCOSE METER 80 mg/dL 70-110 : TESTED A T [facility] [address] (BEAKER) (test code = [place]NA[place], 1538) [address]: Energy Systems Engineer/Techni samuel ID = [id number] for COURTNEY MALONE [id number] 05:54:29 Test Item Value Reference Range Interpretation Comments MAGNESIUM (BEAKER) (test code = 1.7 mg/dL 1.6-2.6 627) Energy Systems Engineer ID - PIAYA LBASIC METABOLIC [id number] 05:54:28 Test Item Value Reference Range Interpretation Comments SODIUM (BEAKER) 141 meq/L 136-145 (test code = 381) POTASSIUM 3.1 meq/L 3.5-5.1 L (BEAKER) (test code = 379) CHLORIDE (BEAKER) 105 meq/L 98-107 (test code = 382) CO2 (BEAKER) 29 meq/L 22-29 (test code = 355) BLOOD UREA 14 mg/dL 7-21 NITROGEN (BEAKER) (test code = 354) CREATININE 0.54 mg/dL 0.57-1.25 L (BEAKER) (test code = 358) GLUCOSE RANDOM 71 mg/dL 70-105 (BEAKER) (test code = 652) CALCIUM (BEAKER) 8.7 mg/dL 8.4-10.2 (test code = 697) EGFR (BEAKER) 104 Interpretatio n of eGFR (test code = mL/min/1.73 values Stage De scription 1092) sq m Result G1 Shavon l or high >=90 G2 Mildly decreased 60-89 G3a Mildl y to moderately 45-5 9 G3b Moderately to s everely 30-44 G4 Severl y decreased 15-29 G5 Kidney failure <15Reported eGF R is based on the CKD-EPI 2020 equation that d oes not use a race coefficientEsti mated GFR is not as accur ate as Creatinine Zuleyma [place] in predicting glom erular filtration rate . Estimated GFR is not appl icable for dialysis patien ts Energy Systems Engineer ID - PIAYA LCBC W/PLT COUNT & AUTO [id number] 05:10:10 Test Item Value Reference Range Interpretation Comments WHITE BLOOD CELL COUNT (BEAKER) 2.3 K/ L 3.5-10.5 L (test code = 775) RED BLOOD CELL COUNT (BEAKER) 3.40 M/ L 4.63-6.08 L (test code = 761) HEMOGLOBIN (BEAKER) (test code = 9.3 GM/DL 13.7-17.5 L 410) HEMATOCRIT (BEAKER) (test code = 28.8 % 40.1-51.0 L 411) MEAN CORPUSCULAR VOLUME (BEAKER) 84.7 fL 79.0-92.2 (test code = 753) MEAN CORPUSCULAR HEMOGLOBIN 27.4 pg 25.7-32.2 (BEAKER) (test code = 751) MEAN CORPUSCULAR HEMOGLOBIN CONC 32.3 GM/DL 32.3-36.5 (BEAKER) (test code = 752) RED CELL DISTRIBUTION WIDTH 17.5 % 11.6-14.4 H (BEAKER) (test code = 412) PLATELET COUNT (BEAKER) (test code 88 K/CU MM 150-450 L = 756) MEAN PLATELET VOLUME (BEAKER) 10.6 fL 9.4-12.4 (test code = 754) NUCLEATED RED BLOOD CELLS (BEAKER) 0 /100 WBC 0-0 (test code = 413) NEUTROPHILS RELATIVE PERCENT 55 % (BEAKER) (test code = 429) LYMPHOCYTES RELATIVE PERCENT 26 % (BEAKER) (test code = 430) MONOCYTES RELATIVE PERCENT 13 % (BEAKER) (test code = 431) EOSINOPHILS RELATIVE PERCENT 4 % (BEAKER) (test code = 432) BASOPHILS RELATIVE PERCENT 1 % (BEAKER) (test code = 437) NEUTROPHILS ABSOLUTE COUNT 1.29 K/ L 1.78-5.38 L (BEAKER) (test code = 670) LYMPHOCYTES ABSOLUTE COUNT 0.61 K/ L 1.32-3.57 L (BEAKER) (test code = 414) MONOCYTES ABSOLUTE COUNT (BEAKER) 0.31 K/ L 0.30-0.82 (test code = 415) EOSINOPHILS ABSOLUTE COUNT 0.09 K/ L 0.04-0.54 (BEAKER) (test code = 416) BASOPHILS ABSOLUTE COUNT (BEAKER) 0.02 K/ L 0.01-0.08 (test code = 417) IMMATURE GRANULOCYTES-RELATIVE 0 % 0-1 PERCENT (BEAKER) (test code = 2801) POCT-GLUCOSE [id number] 04:29:48 Test Item Value Reference Range Interpretation Comments POC-GLUCOSE METER 186 mg/dL 70-110 H : TESTED A T [facility] 6720 (BEAKER) (test code = [facility], 1538) 79781: Energy Systems Engineer/Techni samuel ID = [id number] for COURTNEY WILLS POCT-GLUCOSE [id number] 17:32:19 Test Item Value Reference Range Interpretation Comments POC-GLUCOSE METER 141 mg/dL 70-110 H : TESTED A T [facility] 6720 (BEAKER) (test code [facility], = 1538) 39459: Energy Systems Engineer/Techni samuel ID = [id number] for Mary De La Garza, Gene sis POCT-GLUCOSE [id number] 16:46:20 Test Item Value Reference Range Interpretation Comments POC-GLUCOSE METER 82 mg/dL 70-110 : TESTED A T [facility] 6720 (BEAKER) (test code = [facility], 1538) 12075: Energy Systems Engineer/Techni samuel ID = [id number] for Mary De La Garza, Gene sis CT, CAROTID, [id number] 13:58:00Unlisted Reason for Exam - Click Yes and Enter Reason Below->YesUnlisted Reason for Exam->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 No active extravasation of contrast is identified. Tiny vessel tributaries, likely arising from a right external carotid artery branch, are noted at the level of the supraglottic larynx, on images 162-177. On coronal images, some venous contribution is also suspected. However, no large vessel fistula is identified. Signed: Ren Mcgill Verified Date/Time: 01/14/2022 13:58:[address], CAROTID, ANGIOBRAIN CT WITHOUT CONTRAST INDICATION: Cancer of unknown primary, survei llanceevaluate for tracheoinnominate fistula, patient here for tracheal bleeding COMPARISON: CT headof the same date TECHNIQUE:Rapid acquisition spiral images were obtained between the aortic arch andthe skull base during intravenous contrast infusion to reconstruct axial images and angiographic 3D maximum intensity projections (MIP). 3-D volumetric reformatted images were created at a dedicated workstation. Stenosis evaluation reported in compliance with NASCET criteria. DOSE REDUCTION: Dose modulation, iterative reconstruction, and/or weight-based adjustment of the mA/kV was utilized to reduce the radiation dose to as low as reasonably achievable. FINDINGS: CTA NECK:Common carotid arteries: 50% narrowing of the right common carotid artery with atherosclerotic plaque (sagittal postcontrast image #88). There is normal contrast opacification of bilateral common carotid arteries throughout.Cervical internal carotid arteries: Calcific atherosclerosis at the carotid bifurcations. Normal contrast o pacification of the bilateral cervical internal carotid arteries without significant stenosis by NASCET criteria.Vertebral arteries: Normal contrast opacification of the bilateral cervical vertebral arteries.Arch anatomy: Conventional. Nonvascular findings:No acute findings within the neck soft tissues. Tracheostomy. IMPRESSION: No significant stenosis of the common or internal carotid arteries on CTangiogram of the neck. Signed: Ren Mcgill Verified Date/Time: 01/14/2022 11:53:00 POCT-GLUCOSE [id number] 10:24:21 Test Item Value Reference Range Interpretation Comments POC-GLUCOSE METER 84 mg/dL 70-110 : TESTED A T [facility] 6720 (NOLBERTO) (test code = [facility], 1538) 24424: Energy Systems Engineer/Techni samuel ID = [id number] for CALI WATKINS RAD, CHEST, 1 VIEW, NON [id number] 02:35:00Reason for exam:->PICC placementShould this be performed at the bedside?->Yes [facility] 1950 Sex: MFINAL REPORT RAD, CHEST, 1 VIEW, NON DEPT CLINICAL STATEMENT: PICC placement Findings: The heart is not enlarged. Tracheostomy tube is in place. Right arm PICC is in place with tip inthe mid SVC. No pneumothorax. No consolidations. No pleural effusions. IMPRESSION: Right arm PICC inplace. Signed: Garfield Limaort Verified Date/Time: 01/14/2022 02:35:30 HIGH SENSITIVITY TROPONIN [id number] 02:26:11 Test Item Value Reference Range Interpretation Comments HIGH SENSITIVITY < pg/ml See_Comment [Automated message] TROPONIN I (test code = The system which [id number]) generated this result transmitted ref erence range: <=35. Th e reference range was not used to interpr et this result as normal/abnormal . Energy Systems Engineer ID - SOPHIE MThe SLIP INJECTOR AND APPLICATOR STAT High Sensitivity Troponin-I results should be used in conjunction with other diagnostic information such as ECG, clinical observations and information, and patient symptoms to aid in the diagnosis of [place].[id number] 02:22:04 Test Item Value Reference Range Interpretation Comments MAGNESIUM (BEAKER) 1.8 mg/dL 1.6-2.6 Specimen slightly (test code = 627) hemolyzed Energy Systems Engineer ID - SOPHIE MBASIC METABOLIC [id number] 02:22:04 Test Item Value Reference Range Interpretation Comments SODIUM (BEAKER) 140 meq/L 136-145 (test code = 381) POTASSIUM 3.3 meq/L 3.5-5.1 L Specimen slight ly (BEAKER) (test hemolyzed code = 379) CHLORIDE (BEAKER) 102 meq/L 98-107 (test code = 382) CO2 (BEAKER) 28 meq/L 22-29 (test code = 355) BLOOD UREA 14 mg/dL 7-21 NITROGEN (BEAKER) (test code = 354) CREATININE 0.58 mg/dL 0.57-1.25 Specimen slight ly (BEAKER) (test hemolyzed code = 358) GLUCOSE RANDOM 91 mg/dL 70-105 (BEAKER) (test code = 652) CALCIUM (BEAKER) 9.2 mg/dL 8.4-10.2 (test code = 697) EGFR (BEAKER) 102 Interpretatio n of eGFR (test code = mL/min/1.73 values Stage De scription 1092) sq m Result G1 Shavon l or high >=90 G2 Mildly decreased 60-89 G3a Mildl y to moderately 45-5 9 G3b Moderately to s everely 30-44 G4 Severl y decreased 15-29 G5 Kidney failure <15Reported eGF R is based on the CKD-EPI 202 equation that d oes not use a race coefficientEsti mated GFR is not as accur ate as Creatinine Zuleyma [place] in predicting glom erular filtration rate . Estimated GFR is not appl icable for dialysis patien ts Energy Systems Engineer ID - SOPHIE MHEPATIC FUNCTION [id number] 02:22:04 Test Item Value Reference Range Interpretation Comments TOTAL PROTEIN (BEAKER) 6.1 gm/dL 6.0-8.3 Speci men slightly (test code = 770) hemolyzed ALBUMIN (BEAKER) (test 3.5 g/dL 3.5-5.0 Speci men slightly code = 1145) hemolyzed BILIRUBIN TOTAL 0.6 mg/dL 0.2-1.2 Specimen sli ghtly (BEAKER) (test code = hemoly zed 377) BILIRUBIN DIRECT 0.4 mg/dL 0.1-0.5 Specimen sl ightly (BEAKER) (test code = hemoly zed 706) ALKALINE PHOSPHATASE 56 U/L 40-150 (BEAKER) (test code = 346) AST (SGOT) (BEAKER) 27 U/L 5-34 Specimen slightly (test code = 353) hemolyzed ALT (SGPT) (BEAKER) 14 U/L 6-55 Specimen slightly (test code = 347) hemolyzed Energy Systems Engineer ID - SOPHIE MPROTHROMBIN TIME/[id number] 02:15:21 Test Item Value Reference Range Interpretation Comments PROTIME (BEAKER) 13.8 seconds 11.9-14.2 (test code = 759) INR (BEAKER) (test 1.13 See_Comment [Automat ed message] code = 370) The system [employer] generated this result transmitted ref erence range: <=5.90. The reference range was not used to int erpret this result as normal/abnormal . RECOMMENDED COUMADIN/WARFARIN INR THERAPY RANGESSTANDARD DOSE: 2.0 - 3.0 Includes: PROPHYLAXIS for venous thrombosis, systemic embolization; TREATMENT for venous thrombosis and/or pulmonary embolus.HIGH RISK: Target INR is 2.5-3.5 for patients with mechanical heart valves.CBC W/PLT COUNT & AUTO [id number] 01:56:00 Test Item Value Reference Range Interpretation Comments WHITE BLOOD CELL COUNT (BEAKER) 3.1 K/ L 3.5-10.5 L (test code = 775) RED BLOOD CELL COUNT (BEAKER) 3.88 M/ L 4.63-6.08 L (test code = 761) HEMOGLOBIN (BEAKER) (test code = 10.5 GM/DL 13.7-17.5 L 410) HEMATOCRIT (BEAKER) (test code = 33.1 % 40.1-51.0 L 411) MEAN CORPUSCULAR VOLUME (BEAKER) 85.3 fL 79.0-92.2 (test code = 753) MEAN CORPUSCULAR HEMOGLOBIN 27.1 pg 25.7-32.2 (BEAKER) (test code = 751) MEAN CORPUSCULAR HEMOGLOBIN CONC 31.7 GM/DL 32.3-36.5 L (BEAKER) (test code = 752) RED CELL DISTRIBUTION WIDTH 17.6 % 11.6-14.4 H (BEAKER) (test code = 412) PLATELET COUNT (BEAKER) (test 103 K/CU MM 150-450 L code = 756) MEAN PLATELET VOLUME (BEAKER) 11.0 fL 9.4-12.4 (test code = 754) NUCLEATED RED BLOOD CELLS 0 /100 WBC 0-0 (BEAKER) (test code = 413) NEUTROPHILS RELATIVE PERCENT 61 % (BEAKER) (test code = 429) LYMPHOCYTES RELATIVE PERCENT 23 % (BEAKER) (test code = 430) MONOCYTES RELATIVE PERCENT 10 % (BEAKER) (test code = 431) EOSINOPHILS RELATIVE PERCENT 4 % (BEAKER) (test code = 432) BASOPHILS RELATIVE PERCENT 1 % (BEAKER) (test code = 437) NEUTROPHILS ABSOLUTE COUNT 1.87 K/ L 1.78-5.38 (BEAKER) (test code = 670) LYMPHOCYTES ABSOLUTE COUNT 0.70 K/ L 1.32-3.57 L (BEAKER) (test code = 414) MONOCYTES ABSOLUTE COUNT (BEAKER) 0.31 K/ L 0.30-0.82 (test code = 415) EOSINOPHILS ABSOLUTE COUNT 0.12 K/ L 0.04-0.54 (BEAKER) (test code = 416) BASOPHILS ABSOLUTE COUNT (BEAKER) 0.04 K/ L 0.01-0.08 (test code = 417) IMMATURE GRANULOCYTES-RELATIVE 1 % 0-1 PERCENT (BEAKER) (test code = 2801) Sed [id number] 20:24:02 Test Item Value Reference Range Interpretation Comments Sed Rate (test code = 20 See_Comment H [Auto mated message] 4537-7) The system [employer] generated this result transmitted ref erence range: 0 - 9 mm /hr. The reference r jackie was not used to interpret this result as normal/abnor mal. Lab Interpretation (test Abnormal code = 91410-1) [facility] [id number] 20:24:02 Test Item Value Reference Range Interpretation Comments Sed Rate (test code = 20 See_Comment H [Auto mated message] 4537-7) The system [employer] generated this result transmitted ref erence range: 0 - 9 mm /hr. The reference r jackie was not used to interpret this result as normal/abnor mal. Lab Interpretation (test Abnormal code = 24885-9) [facility] CenterCRP2022-08-11 16:20:50 Test Item Value Reference Range Interpretation Comments CRP (test code = 1.17 mg/L [place] CRP 76267-0) assay are as fo llows: Reference range s when used to assess cardi ac risk: <1.00 mg/L Low cardiovascular risk 1.00-3.00 mg/L Average cardiovascular risk >3.00 mg/L High cardi ovascular risk.Reference ranges when used to assess inflammatory responses: Less than or equal to 10.00 mg/L. [facility] CenterCRP2022-08-11 16:20:50 Test Item Value Reference Range Interpretation Comments CRP (test code = 1.17 mg/L Reference [place] CRP 64645-5) assay are as fo llows: Reference range s when used to assess cardi ac risk: <1.00 mg/L Low cardiovascular risk 1.00-3.00 mg/L Average cardiovascular risk >3.00 mg/L High cardi ovascular risk.Reference ranges when used to assess inflammatory responses: Less than or equal to 10.00 mg/L. [facility] CenterFractionated [id number] 15:52:56 Test Item Value Reference Range Interpretation [...] above 28 g/L. [Automated message] The system [employer] generated this result transmitted ref erence range: [...] (test 0.1 mg/dL 0.0-0.9 code = 1970-) [facility] CenterTotal [id number] 15:52:55 Test Item Value Reference Range Interpretation Comments Total Protein (test code = 2885-2) 5.8 g/dL 6.4-8.3 L Lab Interpretation (test code = Abnormal 88720-3) [facility] CenterCalcium [id number] 15:52:53 Test Item Value Reference Range Interpretation Comments Calcium Lvl (test code = 66952-4) 9.5 mg/dL 8.4-10.2 [facility] CenterGlomerular Filtration Rate 2022-01-12 15:52:52 Test Item Value Reference Range Interpretation Comments eGFR-AA (test code 123 See_Comment Normal eG FR: >= 60 = 25982-0) mL/min/1.73 m2N ote: The eGFR is calculated [...] See_Comment Normal e GFR: >= 60 = 09448-6) mL/min/1.73 m2N ote: The eGFR is calculated [...] interpret th is result as normal/abnormal . [facility] CenterALT2022-08-11 15:52:51 Test Item Value Reference Range Interpretation Comments ALT (test code = 12 U/L See_Comment [Automated message] The 17407-10) system which ge nerated this result transmit mary reference range : <=41. The reference range was not used to interpr et this result as shavon l/abnormal. [facility] CenterAlkaline [id number] 15:52:50 Test Item Value Reference Range Interpretation Comments Alk Phos (test code = 6768-6) 63 U/L 40-129 [facility] CenterBUN2022-08-11 15:52:49 Test Item Value Reference Range Interpretation Comments BUN (test code = 3094-0) 17 mg/dL 6-23 [facility] CenterAlbumin [id number] 15:52:48 Test Item Value Reference Range Interpretation Comments Albumin Lvl (test code 3.5 See_Comment [Aut omated message] The = 7914) system which [employer] nerated this result tra nsmitted reference range : 3.5 - 5.2 gm/dL. The refe rence range was not used to interpret this result as normal/abnormal . [facility] CenterGlucose [id number] 15:52:47 Test Item Value Reference Range Interpretation [...] diabetes Lab Interpretation (test Abnormal code = 35012-0) [facility] CenterAspartate Aminotransferase 2022-01-12 15:52:46 Test Item Value Reference Range Interpretation Comments AST (test code = 25 U/L See_Comment [Automated message] The 1920-01) system which [employer] nerated this result transmit mary reference range : <=40. The reference range was not used to interpr et this result as shavon l/abnormal. [facility] CenterElectrolyte [id number] 15:52:45 Test Item Value Reference Range Interpretation Comments Sodium Lvl (test code = 138 See_Comment [Au tomated message] 3293-2) The system [employer] generated this result transmitted ref erence range: 136 - 14 5 mEq/L. The refe rence range was not u sed to interpret this result as normal/abnor mal. Potassium Lvl (test code 3.5 See_Comment [A utomated message] = 4603-3) The system [employer] generated this result transmitted ref erence range: 3.5 - 5. 1 mEq/L. The refe rence range was not u sed to interpret this result as normal/abnor mal. Chloride (test code = 100 See_Comment [Auto mated message] ) The system [employer] generated this result transmitted ref erence range: 98 - 107 mEq/L. The refe rence range was not u sed to interpret this result as normal/abnor mal. CO2 (test code = 2028-02) 34 See_Comment H [A utomated message] The system [employer] generated this result transmitted ref erence range: 22 - 29 mEq/L. The reference r jackie was not used to interpret this result as normal/abnor mal. Anion Gap (test code = 4 See_Comment [Aut omated message] 67409-2) The system [employer] generated this result transmitted ref erence range: 4 - 14 m Eq/L. The reference r jackie was not used to interpret this result as normal/abnor mal. Lab Interpretation (test Abnormal code = 35180-1) [facility].Serum [id number] 15:52:44 Test Item Value Reference Range Interpretation Comments Creatinine (test code = 2160-0) 0.52 mg/dL 0.67-1.17 L Lab Interpretation (test code = Abnormal 70624-9) [facility] CenterDifferential2022-08-11 15:30:07 Test Item Value Reference Range Interpretation Comments Neutrophil % (test code = 60.6 % 42.0-66.0 770-8) Lymphocyte % (test code = 21.0 % 24.0-44.0 L 736-9) Monocyte % (test code = 12.9 % 2.0-7.0 H 5905-5) Eosinophil % (test code = 4.0 % 1.0-4.0 713-8) Basophil % (test code = 1.1 % 0.0-1.0 H 84951-9) IGRE % (test code = 0.4 % 0.0-0.4 IGRE % c ount 92678-3) includes Metamyelocytes, Myelocytes, and Promyelocytes. Neutrophil Abs (test code 1.65 K/uL 1.70-7.30 L = 751-8) Lymphocyte Abs (test code 0.57 K/uL 1.00-4.80 L = 731-0) Monocyte Abs (test code = 0.35 K/uL 0.08-0.70 742-7) Eosinophil Abs (test code 0.11 K/uL 0.04-0.40 = 711-2) Basophil Abs (test code = 0.03 K/uL 0.00-0.10 704-7) IG Abs (test code = 0.01 K/uL 0.00-0.04 95719-7) Lab Interpretation (test Abnormal code = 38628-6) [facility] [place].[id number] 15:30:01 Test Item Value Reference Range Interpretation Comments WBC (test code = 2.7 K/uL 4.0-11.0 L 6690-2) RBC (test code = 789-8) 3.71 See_Comment L [Au tomated message] The system [employer] generated this result transmitted ref erence range: 4.50 - 6 .00 M/uL. The refer ence range was not u sed to interpret this result as normal/abnor mal. Hgb (test code = 718-7) 9.9 See_Comment L [Au tomated message] The system [employer] generated this result transmitted ref erence range: [...] See_Comment [Automate d message] 786-4) The system [employer] generated this result transmitted ref erence range: 31.0 - 3 6.0 gm/dL. The refe rence range was not u sed to interpret this result as normal/abnor mal. RDW-SD (test code = 54.7 fL 35.1-46.3 H 03692-3) RDW-CV (test code = 17.7 % 12.0-15.5 H 788-0) Platelet count (test 102 K/uL 140-440 L code = 777-3) MPV (test code = 10.7 fL 4.0-10.4 H 94312-1) INRBC (test code = 0.0 % See_Comment The INRBC (instrument 44655-4) NRBC) value ref lects the enumeration of nucleated red b lood cells contained in a 200uL sampleof whole blood analyzed by the instrument. Thi s value maydiffer from the NRBC value repo rted in a manual differential,wh ich is based on a 100 cell differential. [Automated mess age] The system ic h generated this result transmitted ref erence range: <=0.0. T he reference range was not used to int erpret this result as normal/abnormal . Lab Interpretation Abnormal (test code = 59255-4) [facility] [id number] 09:11:21 Test Item Value Reference Range Interpretation Comments Final Report (test No growth code = 8488) Path Review - Culture yield may be Bottle/Isolator affected by sample (test code = 8499) quality, prior treatment, and transportation conditions....The results have been reviewed and electronically signed by Pathologist:Amaury Sinha MD, PhD #[id number] PEDRO LUIS (test code = Short draw may invalidate PEDRO LUIS) quantitative blood culture results. [facility] [id number] 09:11:21 Test Item Value Reference Range Interpretation Comments Final Report (test No growth code = 8488) Path Review - Culture yield may be Bottle/Isolator affected by sample (test code = 8499) quality, prior treatment, and transportation conditions....The results have been reviewed and electronically signed by Pathologist:Amaury Sinha MD, PhD #[id number] PEDRO LUIS (test code = Short draw may invalidate PEDRO LUIS) quantitative blood culture results. [facility] [id number] 01:10:07 Test Item Value Reference Range Interpretation Comments Final Report (test No growth code = 8488) Path Review - Urine The results have been (test code = 8483) reviewed and electronically signed by Pathologist:BERTA BRADY MD #[id number] [facility] [id number] 01:10:07 Test Item Value Reference Range Interpretation Comments Final Report (test No growth code = 8488) Path Review - Urine The results have been (test code = 8483) reviewed and electronically signed by Pathologist:BERTA BRADY MD #[id number] [facility] CenterUrinalysis w/Microscopic if Xdyueqqpp7789-11-07 03:33:41 Test Item Value Reference Range Interpretation Comments UA Color (test code = Straw Straw-Yellow 25704-5) UA Appear (test code Clear Clear = [...] See Comment No nathan roscopic exam = 05633-7) performed, physiochemical findings are ne gative Lab Interpretation Abnormal (test code = 11137-0) [facility] CenterUrinalysis w/Microscopic if Bzmsuowhp2068-04-93 03:33:41 Test Item Value Reference Range Interpretation Comments UA Color (test code = Straw Straw-Yellow 72380-3) UA Appear (test code Clear Clear = [...] See Comment No nathan roscopic exam = 89313-9) performed, physiochemical findings are ne gative Lab Interpretation Abnormal (test code = 25130-2) [facility] Glucose [id number] 03:28:58 Test Item Value Reference Interpretation Comments Range POC Glucose (test 129 mg/dL 70-99 H RN Notifie dCapillary code = 40742-3) blood sample s, e.g. obtained by fingerstick, [...] Capillary code = 9554) Performing Lab (test [facility] Main Main [facility] code = 16211) [facility] MD Yue martinez [facility], [address] [place] [address] [phone]; Senior Systems Architect: Paty Chavez MD Lab Interpretation Abnormal (test code = 78996-7) [facility] CenterABG2022-06-17 02:55:19 Test Item Value Reference Range Interpretation Comments pH Art (test code = 7.41 7.35-7.45 Results are 2744-1) corrected for a body temp of 37C. pCO2 Art (test code = 51.0 See_Comment H [Auto mated message] 2019-01) The system [employer] generated this result transmit mary reference range : 35.0 - 48.0 mmH g. The reference r jackie was not used to interpret this result as normal/abnormal . pO2 Art (test code = 31 See_Comment A [Autom ated message] 5647) The system [employer] generated this result transmit mary reference range : 83 - 108 mmHg. The reference range was not used to interpret this result as normal/abnormal . HCO3 Art (test code = 32 mmol/L 21-28 H 1959-) Base Excess Art (test 6 mmol/L -2-3 H code = 1925-7) O2 Sat Art (test code = 58 % 95-99 L 2708-6) Lab Interpretation (test Abnormal code = 56537-2) [facility] CenterABG2022-06-17 02:55:19 Test Item Value Reference Range Interpretation Comments pH Art (test code = 7.41 7.35-7.45 Results are 2744-1) corrected for a body temp of 37C. pCO2 Art (test code = 51.0 See_Comment H [Auto mated message] 2019-01) The system [employer] generated this result transmit mary reference range : 35.0 - 48.0 mmH g. The reference r jackie was not used to interpret this result as normal/abnormal . pO2 Art (test code = 31 See_Comment A [Autom ated message] 7967) The system [employer] generated this result transmit mary reference range : 83 - 108 mmHg. The reference range was not used to interpret this result as normal/abnormal . HCO3 Art (test code = 32 mmol/L 21-28 H 1959-09) Base Excess Art (test 6 mmol/L -2-3 H code = 1925-7) O2 Sat Art (test code = 58 % 95-99 L 2708-6) Lab Interpretation (test Abnormal code = 40099-8) [facility] CenterNT-Pro BNP (In-House)2021-11-18 02:28:46 Test Item Value Reference Range Interpretation Comments NT ProBNP (test code = 168 pg/mL See_Comment H [Aut omated message] 37205-8) The system [employer] generated this result transmit mary reference range : <=125. The refe rence range was not u sed to interpret th is result as normal/abnormal . Lab Interpretation (test Abnormal code = 66162-9) [facility] CenterCardiac [id number] 02:26:11 Test Item Value Reference Range Interpretation Comments CK (test code = 2157-6) 50 U/L 39-308 CK MB (test code = <2.0 See_Comment [Automat ed message] 35626-0) The system [employer] generated this result transmitted ref erence range: <=10.4 n g/mL. The reference r jackie was not used to interpret this result as normal/abnor mal. Troponin T (test code = 36 ng/L See_Comment H < 19 ng/L Suggest 53276-5) retest at 3 to 6 hours later to rule o ut myocardial infa rction >= 19 to <=52 n g/L Possible myocar dial injury. Suggest retest at 3 hours. - a change of < 20 ng/L, r etest at 6 hours - a change of [...] res ults. [Automated mess age] The system [employer] generated this result transmitted ref erence range: <=18. Th e reference range was not used to int erpret this result as normal/abnormal . Lab Interpretation Abnormal (test code = 51707-0) [facility] [place] [id number] 02:26:11 Test Item Value Reference Range Interpretation Comments CK (test code = 2157-6) 50 U/L 39-308 CK MB (test code = See_Comment [Automat ed message] 11502-2) The system [employer] generated this result transmitted ref erence range: <=10.4. The reference range was not used to int erpret this result as normal/abnormal . Troponin T (test code = 36 ng/L See_Comment H < 19 ng/L Suggest 01249-3) retest at 3 to 6 hours later to rule o ut myocardial infa rction >= 19 to <=52 n g/L Possible myocar dial injury. Suggest retest at 3 hours. - a change of < 20 ng/L, r etest at 6 hours - a change of [...] res ults. [Automated mess age] The system [employer] generated this result transmitted ref erence range: <=18. Th e reference range was not used to int erpret this result as normal/abnormal . Lab Interpretation Abnormal (test code = 05552-9) [facility]OVID[facility] (SARS[facility]CoV-2)Lqxdftmsgpsv-PI2303-65-16 20:55:07 Test Item Value Reference Range Interpretation Comments COVID19 Not Detected Not Detected (SARS-CoV-2) (test code = 59736-3) COVID19 SARS Pre-OR Procedure Indication (test code = 63710) Covid 19 Comment See Note The rufino S ARS-CoV-2 (test code = [place] [address]) use on the dharmesh s Alyson System [...] sheet for patie nts provided by the kaiako kura tuarua ([employer]) can be rev iewed at: https://www.fda .gov/m edia/382118/denys nload. A fact sheet fo r Health Care pro viders is provided by the kaiako kura tuarua ([employer]) and can be reviewed at: https://www.fda .gov/m edia/306696/denys nload Results must be interpreted wit hin [...] high-comple xity tests. The [facility] at [facility], CLIA Accreditation #[id number] and CAP Accreditation #[id number], verif ied the performance characteristics of this assay. Int ernal controls are us ed to monitor all sta ges of the test proces s. [facility] CenterCOVID-19 (SARS-CoV-2)Ernvmrvcihtw-HN5293-01-16 20:55:07 Test Item Value Reference Range Interpretation Comments COVID19 Not Detected Not Detected (SARS-CoV-2) (test code = 68789-4) COVID19 SARS Pre-OR Procedure Indication (test code = 86190) Covid 19 Comment See Note The rufino S ARS-CoV-2 (test code = [place] [address]) use on the dharmesh s Alyson System [...] sheet for patie nts provided by the kaiako kura tuarua ([employer]) can be rev iewed at: https://www.fda .gov/m edia/595666/denys nload. A fact sheet fo r Health Care pro viders is provided by the kaiako kura tuarua ([employer]) and can be reviewed at: https://www.fda .gov/m edia/121558/denys nload Results must be interpreted wit hin [...] high-comple xity tests. The [facility] at [facility], CLIA Accreditation #[id number] and CAP Accreditation #[id number], verif ied the performance characteristics of this assay. Int ernal controls are us ed to monitor all sta ges of the test proces s. [facility] CenterMagnesium [id number] 20:26:52 Test Item Value Reference Range Interpretation Comments Magnesium (test code = 74559-2) 1.9 mg/dL 1.6-2.6 [facility] CenterPhosphorus [id number] 20:26:48 Test Item Value Reference Range Interpretation Comments Phosphorus (test code = 2777-1) 4.1 mg/dL 2.5-4.5 [facility] CenterProcalcitonin (PCT)2021-11-17 20:26:40 Test Item Value Reference Range Interpretation Comments Procalcitonin (test 0.07 ng/mL See_Comment Procalci tonin > 2.00 code = 33173-7) ng/mL: Proca lcitonin levels above 2. 00 [...] extended diluti on as it exceeds the kaiako kura tuarua's recommended krishnamurthy it. Caution should be exercised when interpreting goemz ch values and done in conjunction wit h clinical contex t. [Automated mess age] The system [employer]Editlite generated this result transmitted ref erence range: <=0.08. The reference range was not used to int erpret this result as normal/abnormal . [facility] CenterProcalcitonin (PCT)2021-11-17 20:26:40 Test Item Value Reference Range Interpretation Comments Procalcitonin (test 0.07 ng/mL See_Comment Procalci tonin > 2.00 code = 25146-1) ng/mL: Proca lcitonin levels above 2. 00 [...] extended diluti on as it exceeds the kaiako kura tuarua's recommended krishnamurthy it. Caution should be exercised when interpreting gomez ch values and done in conjunction wit h clinical contex t. [Automated mess age] The system [employer] generated this result transmitted ref erence range: <=0.08. The reference range was not used to int erpret this result as normal/abnormal . [facility] CenteraPTT2022-06-16 20:15:38 Test Item Value Reference Range Interpretation Comments aPTT (test code = 30.0 See_Comment [Automate d message] The 68118-8) system which ge nerated this result transmit mary reference range : 22.8 - 34.2 second(s). The reference range was not used to interpr et this result as shavon l/abnormal. [facility] Medical CenterProthrombin Time with [id number] 20:12:32 Test Item Value Reference Range Interpretation Comments PT (test code = 5902-2) 14.2 See_Comment H [Au tomated message] The system [employer] generated this result transmitted ref erence range: 11.5 - 1 3.9 second(s). The reference range was not used to int erpret this result as normal/abnormal . INR (test code = 6301-6) 1.18 0.90-1.10 H Lab Interpretation (test Abnormal code = 58350-5) [facility] Medical CenterProthrombin Time with [id number] 20:12:32 Test Item Value Reference Range Interpretation Comments PT (test code = 5902-2) 14.2 See_Comment H [Au tomated message] The system [employer] generated this result transmitted ref erence range: 11.5 - 1 3.9 second(s). The reference range was not used to int erpret this result as normal/abnormal . INR (test code = 6301-6) 1.18 0.90-1.10 H Lab Interpretation (test Abnormal code = 47591-6) [facility] VBG+[id number] 19:44:24 Test Item Value Reference Range Interpretation Comments POC VB pH (test code 7.44 7.31-7.41 H = 6719) POC VB pCO2 (test 48 See_Comment [Automate d message] code = 6718) The system [employer] generated this result transmitted ref erence range: 41 - 51 mmHg. The reference r jackie was not used to interpret this result as normal/abnor mal. POC VB pO2 (test 23 mmHg code = 6720) POC VB TCO2 (test 34 See_Comment H [Automate d message] code = 2027-1) The system [employer] generated this result transmitted ref erence range: 24 - 29 mEq/L. The reference r jackie was not used to interpret this result as normal/abnor mal. POC VB Bicarb (test 32 mmol/L 23-28 H code = 01829-0) POC VB Base Ex (test 7 mmol/L [...] chemic ally sensitive biose nsors on a DIR[employer]med ip that are config ured to perform spec ific tests. The microfabricated sensors measure analyte concent ration by an electroch emical assay. POC Sample Type Venous (test code = 6690) POC Clean Dev (test Yes code = 6672) Performing Lab (test MDA Main Main Ca mpus code = 55398) [facility] Cli nical Lab, [place] Cresp[place], [place] [address]; Senior Systems Architect: Paty Chavez MD Lab Interpretation Abnormal (test code = 83381-1) [facility] OmahaPOC VBG+[id number] 19:44:24 Test Item Value Reference Range Interpretation Comments POC VB pH (test code 7.44 7.31-7.41 H = 6719) POC VB pCO2 (test 48 See_Comment [Automate d message] code = 6718) The system SCC Eagleic h generated this result transmitted ref erence range: 41 - 51 mmHg. The reference r jackie was not used to interpret this result as normal/abnor mal. POC VB pO2 (test 23 mmHg code = 6720) POC VB TCO2 (test 34 See_Comment H [Automate d message] code = 2026-) The system [employer] ich generated this result transmitted ref erence range: 24 - 29 mEq/L. The reference r jackie was not used to interpret this result as normal/abnor mal. POC VB Bicarb (test 32 mmol/L 23-28 H code = 30786-1) POC VB Base Ex (test 7 mmol/L [...] which contains microfabricated sensors, a calibration che [employer], fluidics system , and a waste chamber . Each test cartridge contains chemic ally sensitive biose nsors on a DIR[employer]med ip that are config ured to perform spec ific tests. The microfabricated sensors measure analyte concent ration by an electroch emical assay. POC Sample Type Venous (test code = 6690) POC Clean Dev (test Yes code = 6672) Performing Lab (test MDA Main Main Ca mpus code = 80934) [facility] Cli nical Lab, [address] [place], [place] [address]elroy Whyte, [place] [address]; Senior Systems Architect: Paty Chavez MD Lab Interpretation Abnormal (test code = 78017-6) [facility] CenterPathology Surgical Interpretation 2021-11-12 12:56:20 Test Item Value Reference Range Interpretation Comments Submitted Clinical History f7qhrAXnHCAwb4gvAC (test code = 95601) VmbGFuZzEwMzNcZnRu YmpcdWMxIHtccnRmMV xja6AoD3FbGgXgALmh bnNpXGRlZmxhbmcxMD JlNEQ2csZhNGNrSOmh HUJuTGmfHa1ntUFgsG poXuElANFyp4ppmrLI bqqvbXf4g4mmYOMwJg Z7iKUzHKbbI8nmzbKs xIXwLSXgJDi8sQ39OE XhcI0sfSAuNAnpwrLf MxO1CSuqHFApLwH7WU ZitKQdJKPdC8ibIHDh XGdyZWVuMFxibHVlMC P7yAntg9W2jQQndAXd dHtcZjBcZnMyMiBOb3 DbBVm9jQmxK9CeOHIg ArZ5kBWeUYPhMTugQG WaKBBmhtM5sT37DLmz suW3fXDuu1Cpn54jh4 37mH8drVYlWIE5KJNt JORaqITtUTVeKNJ7FV ZiiWXbF7kaXSCxIV5e cmdyMTgwMFxtYXJndD M7KZQjaEKuP0JqSOWr HWqyFWXtdvz5YkGvTl 6vfDHeuEpuBDptm0xu y8qjpCGcQhx8ROBiZp SfGayfDVyqz9Wmd0hg QCJdmq9gGZR9hUTgyT qsu3H8sVJnGYOyqWXl geAsTNCgIuV5CMhgMF 1lgf04ZBPjYOC9ge8t bGNccGdicmRyaGVhZF nkP7KyGNLib373OTKk E5EpGLKeo2X6jdKgKz IvTLGriYG0taV3LFVa EMp8vXKfmyR3kgAesW TiZ5ytyQ4dEPBlEV0n afuuw5voYIpfXXtyXN VypPZ4jlN4WGXdcHIo L7IciK6vRNIoNMkoJO Utpwv7DbCqEm0haWUz eTcyMFxzYmtwYWdlXH BnbmNvbnRccGduZGVj XHBsYWluXHBsYWluXG YwXGZzMjRccWxccGxh cT7fRsYrUnSmAZqoXG 4gACEwY9bsaFHpUKHg GCUqB6llVkAjrZ8czK xaWJxofsEjUTQ7q1Yc OPHxGW8dwYTwkEinoa wpe3Mie3OlF1cfoZLu IFtSMDYuMDBdXHBsYW luXGYxXGZzMjJcbGFu ZzEwMzNcaGljaFxmMV bpVfPnLPTcBHagO9qr BtUbQjAlRzkfLMB0jA == Diagnosis (test code = 34) o6haqVEbNISmlSN9DZ NsFLGvp5tjw1DniSBd cGFyXGpleHBhbmRcbm 53iDM2xP60TR9nZLJi JpI8AZTsbqG8Fwx8SG CmMAQcoWNcX075f6wr r0ihihSemQV7YCIiPT ZgM9WwXS8tYHVbzWLm J06gkHSbJUK3VAHdQJ FiiXLrJQFhMKA3PMRa rSCrB9agLCDhAR9waj dyMTgwMFxtYXJndDE0 ESIgxOSdC1ThJCXuIC utQXFvpuf4LbVoDq6z dGVyeTcyMFxwYXJkXH GdWFulKYCeGgWtY5Gi JSK3SP84jCTuDHIoTT N2vDJotXYae68nqQGr EUUuJI5sx0U0PJTgst bycEhrAItjeD42EmYx A4NgZPEhFFsfMD64mz BvZiBoeXBlcmtlcmF0 l8UnGqKitKThbL18wy NorBTap2Uxt4k0jYSh dDxkKAU0b1IsODWiWE 5ccGFyXHBhcmRccGFy XSnGHZ8IBM5fnJFwdF == Gross Description (test m2gdhZOlTGJasKWAGA code = 0511853599) kwMVxhbnNpXHNwbHRw Q2IwpqmxTZyeED6fDP 0ipSjkuZJkdKPiHX5Y XGRlZmYxXHBhcGVydz EyMjQwXHBhcGVyaDE1 WZNpRR0nrcezQZksSW vbMRXdrpM8BHObmZCm A1FpJYHdUD1bzxayAZ F3YCrbeX2hxdZZCsek Me5ykREwdSzxBqXmUe NoYXJzZXQwXGZuaWwg PBWeBTd4iT3TCjvrB1 2sp7P8Yao3BIPxQZPd M2VsKS6zWAQbvXSjR7 2XLswjKXD2JQCZThio UWRkXM4Gg0rzGIRilO NeMBN0LNcvpHKiXLMa PVRxKPk9FLCsALnqvV BwLY8tlQrrUlonbNgn k2ZmaBZsTIdsXPGqCS EbOLhsJVMzYJ5GOlEy DLMaFFG5JhHlBEf3WQ z8QC6MMlFmPZHrHCKq Vau6WDPwGEo6WPpmIS 6DILQlETh4Xau5NnKp ROVlPzRfHXo3AFZsNM xmIEFyaWFsIFxcZnMg MTAgXFxmYiBcXGZsIF dcpqK2ERPjZEaqFOLs ZnMyMCBBOlxwYXIgDQ lbyTuifC8sQLVxL47i u7RYu6ZtKG5TFUq9dq AvlrtxfZ8yBUPrzkFd SDnrkQGpZ0fdHwnqAp FcZnMyMCBPdGhlciwg Q9GhkwpoPOauDXEznQ nkM9PzzHHbUZRdHL3r BG6fTWE2PYSpIWKgYZ DjBZTdcEtavDTwa95j kOxxjYfuW2IyTY6nFD Vvgj8rbY0fYYXlNnDz cNtqo4NzDPssUwRjzQ DmHfUufBNlDqIjS41a xA5qKHbvezFcDPZyVP BhcmUgaWRlbnRpZmll OHtzSM0kZSTdtHyfEC d8QIQ2Fm5ewKEjBNXz vrOKYPCld1HfTeLyev LrKUOiUIhes7Uimt7i WLdjdk36OJX9e8dqwI VsZHtcKlxmbGRpbnN0 IEhZUEVSTElOSyBuYW 1lPUxJTktCRUdJTnwy GDZvWftudYRGLAC2KS rivQljsRq6l1vejUMu i0w7ORpgBOC9xPJXt6 xmaWVsZHtcKlxmbGRp euJ6LJyRRQQMHOwCRb SiXV1iKIkRPzpIMvH5 MuSyCLC0OYtKA3RJrQ V9Fiy9MRq5wAodEinv iwUuhXCeTrODlD9qvW pfdB6nhRQgC1weVwCw MCANClxlcGljTmVzdE YcFbNouhN1NMOzlNXt ARF9XM4qGMBsztnnBV QgRUBzHJM4KLgqgY56 bHQwXGZzMTZccGFyfV jsuTLybeMJEgcapU0l IwWrp0qdfXz9WYYGFo gskLYdcqgherX8BTFo o6imjCxbi0BzqPAlAB 2gyCkuxG9mVmOlIsIM Cn0= Intraoperative Evaluation t9afaXWqREPdaYYMOB (test code = [id number]) kwMVxhbnNpXHNwbHRw C9PiikssQVaaEJ3jBT 4xzKubgCVteWIfRO0Y XGRlZmYxXHBhcGVydz EyMjQwXHBhcGVyaDE1 XMKyDS6ztixsKTtmOA sxGJDmjoX2NBLhdTVc F4DsDCVtUP2wecdoEG X6MUddzV2jiwJKNkic Ws6quSQcrXbaLgLkGf NoYXJzZXQwXGZuaWwg AHUjRVh6sE4KMehrC5 4ya3Y4Zta6CFHfRJEf C8SeZH7sJQQgtPNyO1 9MLdijJTL8NUHGKgon KIDxDB2Ti0isHIVpmQ FvRHA2QQnihYQbQJPm AVSqIYm4EPNhQPhrmF DjVB6egTuaDzfdhNum v9ZryMBqOHhwAQPvRD CoKEssDISuEE6VXhRx INRyCIU0ZuZjRJg9HR o8BC0YYbDmINUuZYGe Jrn2YCKxBZk6MItyYJ 2AQGBfFPb0BKxgNIJx WSCbVpAcTYv6TBCbEL xmIEFyaWFsIFxcZnMg MTAgXFxmYiBcXGZsIF rqaaJ8UHEbGEahVMSg ZnMyMCBBOlxwYXIgDQ raoGfdmX6vNRVmZ80x o5WKl3SiTT2QVMr2vb MaltgftX9zCKPhkyPg FHxcnUHyP6npFzknWw FcZnMyMCBPdGhlciwg T7MdmslhEIqbHBHdpE ljF6QzaGQmMMCfIM1d YP6eYIP5PMWlhxZYWo gznAksIOahxP59YlCd HPqvIyZuC2XhGHKeBR cqDL47sdIgSeXdrNHz fiWvYBT0gTTml1N5CC 2jaBAkVUSicPlakWl7 cFK5eJZfXQQwcMIhHJ cqGrzqkN6pnAkswn6t PL2kHW7hqythpKXvM4 TuL2fvm25hRN1mGNel S9rnG7SmPBOal9G4TL 6osRAaDUzgoWymj4wm HlKLGv6EDWHgUhfhis 93XDQ2k5rfuUWvZMha WnkuiPTolcJ7MBeTNA MBEYxIQgJgXB6aUNlG TktCRUdJTnwyMTAxNn hzhILCYVW6NJgmjJie rYe4d0mzhACiq1a2GS yqEQT7lOpSq1xjoTLu HRfwQqowlQAuvpN0IA kNSWXRFBxLBcNnJG7o MCyYTyiBDjK0FgZqCZ Z0PDdWJ4ZYyYC1Jve3 SRe2gItqOhjhnlClnB UwYiMAiN6biHjvnK0d qHVsS2lyItCiOQVHTs xlcGljTmVzdERvYzBc inT0TUCizAAgJOO3ET 5kXHBhclxwYXJkXHNs EFG7VGefpQ87yDGpNK ZzMTZccGFyfVxwbGFp oaZTShaxZDCjKPv8sb HqgghkpO9kNgCgZZte cPjbnY1nMwCkUkn4KP buZJTkY5HwF5JadmW0 XHBsYWluXGZzMTYgDQ p9 Disclaimer (test code = t2epgIAsYKKmkZJjWu 9844) AhJOBpLMCxe6usQLQp bGFuZzEwMzNcZnRuYm lbqPLxILQbYjIev4za x584cTGuk6zpSZGmAm W3sRMiUOLbiFMmD813 YUGjTOzjv6sqh7WoFF HisSWum5B3ZJURvouu zNp7jRpvK28ah8G0Io lmL9epSUScLDHwQ6Zz AE2wVTLnChk9KFE1FG I9PACbQICnR7AdWR7v EGFbvSGnTDx4x9gtjB nbIDLuBKU4v1rhXWnx eoRzQT8qzh7tcVb2g3 xjczEgRGVmYXVsdCBQ YXYuX9DzyGewKx0ohR v2jTnoVucpGCE8Lmm2 TE2wsf79kbo5tPslHT XoofujJvV7SNemWTFv xjndKQn3CCpoFWNqzF X7FJSsbAMfU2CsUUGz MQ6lmjq3NNP3WIvaLW TbViW8IDRvxXJqRJPd nFvhCIuvm364VRV0Dc QvPT3dI7Emi5A7jZ8b aXRcZGVmdGFiNzIwXG Fyqg2cqTUgECnri0Uq XJN6frO6nYNnwHJhIV HdJI01Jhvyf6XcFkpp LAS5EZKbjsEud4Lsa2 pmApSkcnNvP4agV3Zv ZHJoZWFkXHBnYnJkcm Wpe8Prp6TgvFFrvOo2 n0ydBTPqKQIybZjji7 ucLFJ5MJWgN1M2rZVq m1biTTwxJPOaoFR5io C0NCRbxFAtX0IazQ8q CVSsND0fxas6y4apIG M6FAxlZNGaQxW4bfF7 NDBcaGVhZGVyeTcyMF mnr768YOA2ReRtRLOt w9QzT3IvdIdwY13zlF dnO57eNOWmtZgaoY6p wLgoqP4bTpUdOcJlVD xxbFxwbGFpblxmMVxm cvV1IRpbgpfwLYGhTV ceG6sxBsAhYQSveVuq AAiap8CjVCKoZRGwDh mfbdF2YNGOq65dPMUj k7AfGXYkmX0kzPLzZC uyvvOhpPM3SQoxdgIq VvWizfMcZEArlH4vDM WnAF9aOPXufhHyed1f yyBbWBLdRXPeD3Nwsc yxjNshjiTfQWFczl5a guVmKAV9VPPHRJ2XFH QrDGIan78eBYTnfObj wU7vwAXlajDcIGOzx7 WdqP1yrAKXUGNoB6jf BN5rVJsum0NnlKGkpX JgrYV0IGTlf0MiPuSk osJpkGXdyBExM2WuxR pqR2bcUUBfAIJotiXh rBVkn3EfCDGdfJP1mE KsBR9NNaDWm60dZNOh ZCBEcnVnIEFkbWluaX T1gcX9yI6pAmSMPdPs cHBsaWNhYmxlLCBjb2 03tu9mloG8LSSyMFCw eeodr6MbQNDkZOGomX 40FNLmKNIwmp1ccxos oDWqhtFbK9Sdoex9zA 4iXHBsYWluXGYxXGZz MjJcbGFuZzEwMzNcaG ljaFxmMVxkYmNoXGYx TTcoH0iwEzXzPkRiGf xwYXJ9 [facility] [id number] 20:09:31 Test Item Value Reference Range Interpretation Comments Sodium Lvl (test code 138 See_Comment [Auto mated message] The = 2951-2) system which ge nerated this result tra nsmitted reference range : 136 - 145 mEq/L. The refe rence range was not used to interpret this result as normal/abnormal . [facility] [id number] 20:09:31 Test Item Value Reference Range Interpretation Comments Sodium Lvl (test code 138 See_Comment [Auto mated message] The = 2951-2) system which ge nerated this result tra nsmitted reference range : 136 - 145 mEq/L. The refe rence range was not used to interpret this result as normal/abnormal . [facility] Center[facility] Laboratory Add-On Test 2021-11-10 14:19:24 Test Item Value Reference Range Interpretation Comments Ordered (test code Test Not Added duplica te see = 5715) [phone], confirmed w/ Grant kaur Mcghee. 2021 9:19:15 AM CDT jpa Test Needed (test NT proBNP code = 7604) [facility] PFT (Jose, DLCO, LV) 2021-11-07 00:00:00 Test Item Value Reference Range Interpretation Comments FVC (L) pre (test code = 2.541 L 2.731-4.336 L 9507) FEV1 (L) pre (test code 1.528 L 1.884-3.240 L = 9505) FEV1/FVC (%) pre (test 60.131 % 63.513-82.869 L code = 9509) DLCO_SB ml/(min*mmHg) 4.660 See_Comment L [Auto mated message] (test code = 9515) The syste m which generated this result transmitted ref erence range: 6.530 - 23.117 ml/(min*mmHg). The reference range was not used to int erpret this result as normal/abnormal . DLCOc_SB ml/(min*mmHg) 5.600 See_Comment L [Aut omated message] (test code = 9516) The syste m which generated this result transmitted ref erence [...] 9530) Lab Interpretation (test Abnormal code = 35141-3) [facility] PFT ([place]ur[place], DLCO, LV) 2021-11-07 00:00:00 Test Item Value Reference Range Interpretation Comments FVC (L) pre (test code = 2.541 L 2.731-4.336 L 9507) FEV1 (L) pre (test code 1.528 L 1.884-3.240 L = 9505) FEV1/FVC (%) pre (test 60.131 % 63.513-82.869 L code = 9509) DLCO_SB ml/(min*mmHg) 4.660 See_Comment L [Auto mated message] (test code = 9515) The syste m which generated this result transmitted ref erence range: 6.530 - 23.117 ml/(min*mmHg). The reference range was not used to int erpret this result as normal/abnormal . DLCOc_SB ml/(min*mmHg) 5.600 See_Comment L [Aut omated message] (test code = 9516) The syste m which generated this result transmitted ref erence [...] 9530) Lab Interpretation (test Abnormal code = 69373-6) [facility] CenterABORh [id number] 14:14:06 Test Item Value Reference Range Interpretation Comments ABORh Manual (test code = 882-1) O NEG [facility] CenterABORh [id number] 14:14:06 Test Item Value Reference Range Interpretation Comments ABORh Manual (test code = 882-1) O NEG [facility] Medical CenterClot Expiration [id number] 14:14:03 Test Item Value Reference Range Interpretation Comments T & S Expiration (test code = 10/30/2021 5318) [facility] CenterCalcium Ionized, [id number] 10:15:06 Test Item Value Reference Range Interpretation Comments V Ion Ca (test code = 52139-4) 1.29 mmol/L 1.15-1.29 [facility] CenterCalcium Ionized, [id number] 10:15:06 Test Item Value Reference Range Interpretation Comments V Ion Ca (test code = 82707-1) 1.29 mmol/L 1.15-1.29 [facility] Medical CenterTMP Interpretation Antibody Screen [id number] 14:09:29 Test Item Value Reference Range Interpretation Comments TMP Auto Neg At the present ABSC Interp time, patient (test code = plasma shows no ANTONY YUAN MD 8135) evidence of RBC - 49187Nceql mary by: alloantibodies. MD Carri MANN [id number] Date/Time: 10.03 9:09 AM CDT Tra nscribed Date/Time: 10.03 9:09 AM CDTElectronical ly Signed By: MD Carri VILLEDA [id number] on 10.25.2021 9:09 AM C [facility] Medical CenterAntibody [id number] 14:00:27 Test Item Value Reference Range Interpretation Comments ABSC. (test code = 890-4) Negative ABSC [facility] CenterMRSA Screening [id number] 23:31:12 Test Item Value Reference Range Interpretation Comments Final Report (test No Methicillin resistant code = 8488) Staphylococcus aureus isolated. Path Review (test The results have been code = 8492) reviewed and electronically signed by Pathologist:BERTA BRADY MD #[id number] [facility] Medical CenterMRSA Screening [id number] 23:31:12 Test Item Value Reference Range Interpretation Comments Final Report (test No Methicillin resistant code = 8488) Staphylococcus aureus isolated. Path Review (test The results have been code = 8492) reviewed and electronically signed by Pathologist:BERTA BRADY MD #[id number] [facility] CenterHemoglobin [id number] 11:11:08 Test Item Value Reference Range Interpretation Comments A1C (test code = 5.3 % 4.3-5.6 HbA1c value s >=6.5% are 4548-4) diagnostic of d iabetes mellitus.Diagno sis should be confirmed by repeat testing.Therape utic Action suggested: >8.0 % HbA1c; Goal oftherapy: <7.0% HbA1c [facility] Center[facility] [id number] 06:19:03 Test Item Value Reference Range Interpretation Comments Final Report (test No Vancomycin resistant code = 8488) Enterococci isolated Path Review - VRE VRE absent or below limits (test code = 8485) of detection....Culture yield may be affected by sample quality, prior treatment, and transportation conditions....The results have been reviewed and electronically signed by Pathologist:Amaury Sinha MD, PhD #[id number] [facility] Center[facility] [id number] 06:19:03 Test Item Value Reference Range Interpretation Comments Final Report (test No Vancomycin resistant code = 8488) Enterococci isolated Path Review - VRE VRE absent or below limits (test code = 8485) of detection....Culture yield may be affected by sample quality, prior treatment, and transportation conditions....The results have been reviewed and electronically signed by Pathologist:Amaury Sinha MD, PhD #[id number] [facility] CenterPrepare RBC:G722, 1 [id number] 03:43:31 Test Item Value Reference Range Interpretation Comments PRBC Product Ready 1 Red Blood Cells (test code = Available - 92947-5) Order Form 03 when ready for product issue. Unit Number (test [id number] code = 7002) Product Code (test [id number] code = 7003) Unit Expiration [id number] (test code = 335563) Unit Blood Type 5100 (test code = 7004) Product Code Text RBCIRLR Aph ACDA AS1 (test code = Bag 1 ) Crossmatch [id number] Expiration Date (test code = ) Unit Irradiated IRRADIATED (test code = 362188) Dispense Status ISSUED (test code = 7001) Unit Blood Type O Positive (test code = 7005) Product Vp Biology .BPAM ____ Location (test ___ code = 967401) ___ ____ [facility] CenterT[facility] [id number] 21:00:31 Test Item Value Reference Interpretation Comments Range TMP Exception Patient O Rh Neg Interp (test transfused with O code = 7544) Rh Pos blood due to BEAL TRIMBLE unavailability of MD MILAGRO - Rh compatible [id number] by: units. BELA HUMPHREY MD - [id number] Date/Time: 10.02 16:00 PM CDT Transcribed Rohan e/Time: 10.20.2021 16:0 0 PM CDTElectronical ly Signed By: EULALIA HUMPHREY MD - [id number] 02 on 10.20.2021 16:0 0 PM [facility] CenterT[facility] [id number] 21:00:31 Test Item Value Reference Interpretation Comments Range TMP Exception Patient O Rh Neg Interp (test transfused with O code = 7544) Rh Pos blood due to BELA TRIMBLE unavailability of MD MILAGRO - Rh compatible [id number] by: units. MD Carri ALLEN [id number] Date/Time: 10.02 16:00 PM CDT Transcribed Rohan e/Time: 10.20.2021 16:0 0 PM CDTElectronical ly Signed By: MD Carri BILLINGSLEY 143 on 10.20.2021 16:0 0 PM [facility] CenterT[facility] Interpretation Crossmatch 2021-10-20 20:53:37 Test Item Value Reference Range Interpretation Comments TMP XM Interp RBC units (test code = crossmatched for 7566) transfusion appear GEORGE GAN acceptable. MD Carri JIMENEZ [id number] by: MD Carri ESTRADA [id number] Date/Time: 10.02 15:53 PM CDT Transcribed Rohan e/Time: 10.20.2021 15:5 3 PM CDTElectronical ly Signed By: MD Carri BILLINGSLEY 143 on 10.20.2021 15:5 3 PM [facility] CenterRBC Product Ready for Vp Biology 2021-10-20 19:33:24 Test Item Value Reference Range Interpretation Comments PRBC Product Ready B2 Blood Bank Product is ready for for Vp Biology (test berry picker on October 20, code = 836113) 2021 14:33:17 CDT. [facility] CenterR[facility] Product Ready for Vp Biology 2021-10-20 19:33:24 Test Item Value Reference Range Interpretation Comments PRBC Product Ready B2 Blood Bank Product is ready for for Vp Biology (test berry picker on October 20, code = 260931) 2021 14:33:17 CDT. [facility] CenterLactic Acid, [id number] 21:15:17 Test Item Value Reference Range Interpretation Comments V Lactate (test code = 2519-7) 0.5 mmol/L 0.5-1.6 [facility] CenterLactic Acid, [id number] 21:15:17 Test Item Value Reference Range Interpretation Comments V Lactate (test code = 2519-7) 0.5 mmol/L 0.5-1.6 [facility] CenterComplete Blood Count w/o [id number] 18:42:21 Test Item Value Reference Range Interpretation Comments WBC (test code = 5.3 K/uL 4.0-11.0 6690-2) RBC (test code = 789-8) 2.95 See_Comment L [Au tomated message] The system [employer] generated this result transmitted ref erence range: 4.50 - 6 .00 M/uL. The refer ence range was not u sed to interpret this result as normal/abnor mal. Hgb (test code = 718-7) 8.2 See_Comment L [Au tomated message] The system [employer] generated this result transmitted ref erence range: [...] See_Comment [Automate d message] 786-4) The system [employer] generated this result transmitted ref erence range: 31.0 - 3 6.0 gm/dL. The refe rence range was not u sed to interpret this result as normal/abnor mal. RDW-SD (test code = 47.8 fL 35.1-46.3 H 92405-4) RDW-CV (test code = 15.3 % 12.0-15.5 788-0) Platelet count (test 138 K/uL 140-440 L code = 777-3) MPV (test code = 10.5 fL 4.0-10.4 H 26158-4) INRBC (test code = 0.0 % See_Comment The INRBC (instrument 78616-1) NRBC) value ref lects the enumeration of nucleated red b lood cells contained in a 200uL sampleof whole blood analyzed by the instrument. Thi s value maydiffer from the NRBC value repo rted in a manual differential, ich is based on a 100 cell differential. [Automated mess age] The system [facility] [employer] generated this result transmitted ref erence range: <=0.0. T he reference range was not used to int erpret this result as normal/abnormal . Lab Interpretation Abnormal (test code = 43516-8) [facility] [id number] 18:24:06 Test Item Value Reference Range Interpretation [...] See_Comment H [Automate d message] code = 2019-8) The system [facility] generated this result transmit mary reference range : 35 - 45 mmHg. The reference range was not used to interpret this result as normal/abnormal . POC AB pO2 (test 82 See_Comment [Automated message] code = 2703-7) The system [employer] generated this result transmit mary reference range : 80 - 105 mmHg. The reference range was not used to interpret this result as normal/abnormal . POC AB TCO2 (test 33 See_Comment H [Automate d message] code = 2025-) The system [employer] generated this result transmit mary reference range : 23 - 27 mEq/L. The reference range was not used to interpret this result as normal/abnormal . POC AB Bicarb (test 32 mmol/L 22-26 H code = 1960-4) POC AB Base Ex (test 6 mmol/L -2-3 H code = 28331-7) POC AB O2 Sat (test 95 % 95-98 code = 2708-6) POC FiO2 (test code 30 = 94108-7) POC ABG Draw Site OTHER (test code = 22013-2) POC Taurus Test (test Performed code = 57704-8) POC Sample Type Arterial (test code = 6690) POC Clean Dev (test Yes code = 6672) Performing Lab (test [facility] [place] code = 28550) [facility] Cli nical Lab, [address] [place] [id number]; Senior Systems Architect: Paty Chavez MD Lab Interpretation Abnormal (test code = 24599-3) [facility] [id number] 18:24:06 Test Item Value Reference Range Interpretation [...] d message] code = 2019-01) The system [employer] generated this result transmit mary reference range : 35 - 45 mmHg. The reference range was not used to interpret this result as normal/abnormal . POC AB pO2 (test 82 See_Comment [Automated message] code = 2703-7) The system [employer] generated this result transmit mary reference range : 80 - 105 mmHg. The reference range was not used to interpret this result as normal/abnormal . POC AB TCO2 (test 33 See_Comment H [Automate d message] code = 2025-3) The system wh ich generated this result transmit mary reference range : 23 - 27 mEq/L. The reference range was not used to interpret this result as normal/abnormal . POC AB Bicarb (test 32 mmol/L 22-26 H code = 1960-4) POC AB Base Ex (test 6 mmol/L -2-3 H code = 10814-2) POC AB O2 Sat (test 95 % 95-98 code = 2708-6) POC FiO2 (test code 30 = 69022-8) POC ABG Draw Site OTHER (test code = 36503-1) POC Taurus Test (test Performed code = 81248-3) POC Sample Type Arterial (test code = 6690) POC Clean Dev (test Yes code = 6672) Performing Lab (test [facility] [place] code = 27058) [facility] Cli nical Lab, [address] [place] [id number]; Senior Systems Architect: Paty Chavez MD Lab Interpretation Abnormal (test code = 16082-3) [facility] Khfifsym9802-16-14 17:01:01 Test Item Value Reference Range Interpretation Comments POC Critical Comment See Note Test pe rformer notified (test code = 8955) Ordering Licensed Provider and /o r designee of POC AB pH critical Result s. [facility] Dbftpbih4636-17-79 17:01:01 Test Item Value Reference Range Interpretation Comments POC Critical Comment See Note Test pe rformer notified (test code = 8955) Ordering Licensed Provider and /o r designee of POC AB pH critical Result s. [facility] CenterUrinalysis with Microscopic 2021-10-16 01:59:18 Test Item Value Reference Interpretation Comments Range UA WBC (test code = <1 See_Comment [Automa mary 28763-6) message] The system which generated this result transmitted reference range : 0 - 2 /HPF. The reference range was not used to interpret this result as normal/abnormal . UA RBC (test code = 1 See_Comment [Automa mary 46320-6) message] The system which generated this result transmitted reference range : 0 - 2 /HPF. The reference range was not used to interpret this result as normal/abnormal . UA Mucous (test code NOT SEEN Not Seen-Trace = 91236-7) /HPF UA Bacteria (test OCC NOT SEEN /HPF A code = 59336-6) UA Squam Epi (test OCC None-Occasiona code = 91310-4) l /HPF UA Amorph Helene (test 2+ NOT SEEN /HPF A code = 03863-9) PEDRO LUIS (test code = Some reporting PEDRO LUIS) parameters within the Urinalysis test have changed due to the implementation of new instrumentation in the [facility], allowing greater sensitivity of measurement. Urinalysis results reported by the [facility] using existing instrumentation, as well as Urinalysis testing performed manually or by backup methodology at the [facility] will remain relatively unchanged. New reporting parameters and units will now be reported for all [facility]. Lab Interpretation Abnormal (test code = 02433-8) [facility] CenterUrinalysis with Microscopic 2021-10-16 01:59:18 Test Item Value Reference Interpretation Comments Range UA WBC (test code = See_Comment [Automa mary 63612-1) message] The system which generated this result transmitted reference range : 0 - 2 /HPF. The reference range was not used to interpret this result as normal/abnormal . UA RBC (test code = 1 See_Comment [Automa mary 57550-7) message] The system which generated this result transmitted reference range : 0 - 2 /HPF. The reference range was not used to interpret this result as normal/abnormal . UA Mucous (test code NOT SEEN Not Seen-Trace = 42940-7) /HPF UA Bacteria (test OCC NOT SEEN /HPF A code = 88398-9) UA Squam Epi (test OCC None-Occasiona code = 25292-1) l /HPF UA Amorph Helene (test 2+ NOT SEEN /HPF A code = 06875-7) PEDRO LUIS (test code = Some reporting PEDRO LUIS) parameters within the Urinalysis test have changed due to the implementation of new instrumentation in the [facility], allowing greater sensitivity of measurement. Urinalysis results reported by the [facility] using existing instrumentation, as well as Urinalysis testing performed manually or by backup methodology at the [facility] will remain relatively unchanged. New reporting parameters and units will now be reported for all campus. Lab Interpretation Abnormal (test code = 60465-3) [facility] CenterABORh2022-05-14 10:48:09 Test Item Value Reference Range Interpretation Comments ABORh. (test code = 882-1) O NEG [facility] CenterTriiodothyronine2022-05-14 07:51:44 Test Item Value Reference Range Interpretation Comments T3 Total (test code = 3053-6) 72 ng/dL 80-200 L Lab Interpretation (test code = Abnormal 93469-4) [facility] CenterTriiodothyronine2022-05-14 07:51:44 Test Item Value Reference Range Interpretation Comments T3 Total (test code = 3053-6) 72 ng/dL 80-200 L Lab Interpretation (test code = Abnormal 86223-1) [facility] CenterLipase [id number] 07:51:43 Test Item Value Reference Range Interpretation Comments Lipase Lvl (test code = 3040-3) 20 U/L [facility] CenterLipase [id number] 07:51:43 Test Item Value Reference Range Interpretation Comments Lipase Lvl (test code = 3040-3) 20 U/L [facility] CenterAmylase [id number] 07:51:42 Test Item Value Reference Range Interpretation Comments Amylase Lvl (test code = 1798-8) 28 U/L [facility] CenterAmylase [id number] 07:51:42 Test Item Value Reference Range Interpretation Comments Amylase Lvl (test code = 1798-8) 28 U/L 100 [facility] CenterThyroid Stimulating Hormone 2021-10-15 07:51:28 Test Item Value Reference Range Interpretation Comments TSH (test code = 4.27 See_Comment H [Automated message] 46383-6) The system [employer] generated this result transmitted ref erence range: 0.27 - 4 .20 mcunit/mL. The reference range was not used to int erpret this result as normal/abnormal . Lab Interpretation (test Abnormal code = 43306-8) [facility] CenterLactate lasjpcypybtyo3903-52-52 07:51:18 Test Item Value Reference Range Interpretation Comments LDH (test code = 232 U/L 135-225 H Results gre ater than 94655-6) 1651 U/L may no t be reliable due to matrix effect w ith extended diluti on as it exceeds the kaiako kura tuarua's recommended krishnamurthy it. Caution should be exercised when interpreting gomez ch values and done in conjunction wit h clinical contex t. Lab Interpretation (test Abnormal code = 33725-9) [facility] CenterLactate cgiyibgkvahzq2840-87-47 07:51:18 Test Item Value Reference Range Interpretation Comments LDH (test code = 232 U/L 135-225 H Results gre ater than 34593-0) 1651 U/L may no t be reliable due to matrix effect w ith extended diluti on as it exceeds the kaiako kura tuarua's recommended krishnamurthy it. Caution should be exercised when interpreting gomez ch values and done in conjunction wit h clinical contex t. Lab Interpretation (test Abnormal code = 05477-0) [facility] CenterThyroxine [id number] 07:51:17 Test Item Value Reference Range Interpretation Comments T4 Free (test code = 3024-7) 1.34 ng/dL 0.93-1.70 [facility] CenterFibrinogen2022-05-14 07:49:55 Test Item Value Reference Range Interpretation Comments Fibrinogen (test code = 3255-7) 307 mg/dL 214-503 [facility] CenterFibrinogen2022-05-14 07:49:55 Test Item Value Reference Range Interpretation Comments Fibrinogen (test code = 3255-7) 307 mg/dL 214-503 [facility] CenterPathology Biopsy Interpretation 2021-08-31 21:40:26 Test Item Value Reference Range Interpretation Comments Submitted Clinical History d0trsDOpFRTyy9psZKW (test code = 31415) mbGFuZzEwMzNcZnRuYm pcdWMxIHtccnRmMVxzc 6HoJ9GmWzNdTGjhhoCw XGRlZmxhbmcxMDMzXGZ 0bmJqXHVjMVxkZWZmMH jhBs9jnHYltPkfIkRxP AJwc0kxgdFAhpfhuPp2 r4zoTKJjQdF8cXShUIl qC9xzqtHdjEUqMCUgRY s1zD88WNXvzV8obUBxB HkuqkItBhQ0BLzvJLQy ZwR1NLZspRSdTBYpV0y yZWQwXGdyZWVuMFxibH LoHGI7jNrsd3N9nJVgz GVldHtcZjBcZnMyMiBO c4BbDYt0xLozO2ByNDC eGfY1bQWaIWNtRNgzCO CcXILwgjA6oK18ZDejk nZ0iDUdu8Jqm36us630 zY2vjJQbFCC5EYPyIOZ khGTsFSMoIED4KMObbI BsI5rdWTWwKM2yohylX ZizWZqiKYFmuJD1XZXm oGCbI2QgSXCwUQzyXON qcpc5CiOeSm3soQTsaG xtHDrwt9hoo3dnmLLjI gf9RMCgHzJgVfzbRFfp n7Lfq0wjLQHcma4lGBO 5kVTbcRvns4V3bVIdPP PqeMHchpKoQFJyUuN0S QhkPO2glg88EEPrZUX8 ok3asJRjnTdaxfFfnDS nVGhnV7CpDQRlx277CS DmV6XlBNVfx0W8xjAvI xKfNLLymOW0gfA1DEPv HUy6mPZjarW1alLkwJQ fL0rkkW7jKZHjUS3fdr sca9bvHAiyBMouQTSwu NQ3eyH9HIPdwEYiT1Gh pM4nWWUpMQopDJZgrgr 6AbGeEk4spNSooLaqXM xzYmtwYWdlXHBnbmNvb nRccGduZGVjXHBsYWlu XHBsYWluXGYwXGZzMjR vsJagrCtajJ4fOcVqFl OaXXmcKC4sSPViN3jgo PSxHBZfJTZaP4bpGaCq wU9yoHxkMQwtmfFoCUg yl25yEXRgcPJpLA7qeH ZllbOesFYzKV8ijCTbt Qimvwvtf5Rbi1OyN6hm pFZzQPuDLQXcDZ6jaYb rnS0jAwOfVwQnVpksBG 0nOUByO4cjxIEeXKJbZ KYtU3eoDcGgtN2zrTij BAqmnbVzKBHajs11 Diagnosis (test code = 34) d4opiSEoRKTvhBI4YcT uLYWag4zcw0EdpNRnmH LxCSntpJLubhAdqm98b XX4bS95HT6mLKSpWoG4 KHYuzoO4Wod7MVDqVZP rgZBtR003h3tmw4fwyh TisJZ9YJZpAKHfN1WjJ D9uYWXjjPGnR94hvIMa BPR0ZWTcXXPgeWVaPZN hKNC1UXNswCJzY3gxCH ZdIK0vormjFYguEAccX WKhaJK3UAWvrXCdG9Yu FPAsRMpoAREvbaa3AhL dHy8fqVDxcKwtTUouUX JkXHBsYWluXGZzMjBcY 7FyRXT7GXX6r2UlebIf YUAajQ2vi0n2LBRlgmt piPleIZxeoV64NtNeL1 WaXCA9j9KdweBlIQ44S 74jYGG3kVNyWO9mOZKd WHqkw8I0rSGoFGUgd0P tYWxpdHkuXHBhclxsaT LdvRdxCMoyWNYxM5PpP ZT3HYQ5z74qE7fmSZfx y9OvaFZnFB88btWtJXR puA6rx0j5GXWonnzpsB igLTrdiW63GnRaJ1XbW EFudHJhbCBhbmQgdHJh ljRzwDuidtHbDY76A39 iTZQ8dDLzWSDbRIK9oR RgGGuea8Mie2XimDr5V lhtFIAmSg7gLIqjVYZf aWNvYmFjdGVyIFxpMCB vcmdhbmlzbXNcaSAgXG czEZgSWeIrn8PrjS3gF K1kGTnynGZykBxfMDeb hKJ0EUUzNSEySNPmYOJ udGlmaWVkLlxwYXJcbG kwXGxpbjBccGFyXGNmM JSLRjNZbD9xSGLoMFLc UJW5jrraBIXlJFvvlb8 ehDxsltk5tRtaSpzkxA C2TiguCNKljRt4EaOwu MuhFiLoQNLmLMCZyN5s rCBmQ4czgjOjbU3foTU uXHBhclxsaTBcbGluMF dsHKDqT9LpYUQ0WTXzs N5jIVFhBIRcrFkxBBDs IMg5mbJgEVqhy3ZbgEa nauH6VN4uBBFue6XsdY JewQ2snMWkYBRgv0Ial TpccGFyXGxpNzIwXGxp bjcyMFxjZjAgVHVidWx ytrElEKLce33uKqdaNZ JccGFyZFxwYXJ9 Gross Description (test r9moqDAiLBWyiZQNVPz code = [id number]) wMVxhbnNpXHNwbHRwZ3 IhtheoADhgCX2oZT3lt KrstWJatLHzSF7VKAEa ZmYxXHBhcGVydzEyMjQ xVTCaiRHmpGH8NEUzMH 1hcmdsMTgwMFxtYXJnc cB1XVJdpSDsV7ZkKNKv BB3bcvnjGUR3FCakyP2 rooRLHeigWj8lrFPzuI tcZjFcZmNoYXJzZXQwX EAegWzbDUEuFYn5fT3W FqweR23ty2O7Liv1MLD uBLPbQ6CsPQ0gXAOlfK DdS06ADwztDNB5EUODX sidIBUbFQ1Sz2dkDWVe jGUgRGJ8DVljcNAbCLT lIMKdSFg1RVWrLBomnW UiMH4maKsaUsgijGsmr 2VjdCBcXGlkIDUxMDAy ZXveIFQeVR2QHxIzUNV fOSIhOJehBWl6LBj8KF 9TKxYdLAKiQKP5CJP2I EMcRCy0WNooSA1BBGYq ZIB0HRjoUZJcPECuKzN fLZt4HMEqNCdkCJKtaW FsIFxcZnMgMTAgXFxmY uGnRATwSEbsglE2BEUa YWluXGJcZnMyMCBBOlx gWQKsNNtzcIaymP7xFZ JiZ10uh0RWv2AvTU8ZM Ip7clQzxpetqS2dIEJu mvKeSXfbsLQlR9odBrd sDnYxWyHgEHIHcN7aGJ 76iJbzZKXjRXQpuI56N LAeFFLhFQRwEiQop2X4 GVCvacX0yJFcxUWwZmE nI10obxLiSCUdJnGjV9 9jKLLgVwB4KBNtKFMaj nRpcmVseSBzdWJtaXR0 NAZujY6iUJVuBUBvvSM fyIHtaMnsNywanSC8LI ieGfwakD7uxPNVOFXBN nuMFouyrhUeRT8LLU7G EnTAUN30HoVsNXL5QWf JI8XPdJJ2Qtp3XUi7nN tcZmxkcnNsdCBcJzFDf E0VWGgtPbalsJO7KHwg QrfabO7oxQLSTWNCEpv KArcfftWyOY9HET1JAX 6VpVFuIPY8rNF0JFDQH dkmiJI7rEE3dI73KFOb JHEbvWReSZpzK101KPO uFDmsKMl0hgTgRWRdId VuRFzcZCPjD42ll2GId 2BnJXXsu8dgnZhjv4Mr dGVuZFxwYXJccGFyZFx nyF1oYqShl0qsiUd1HQ zfexE5FDMcti6egZzda A9tCDg2ARngXFSxO0Rr Z6SwYPdqZFZ1HIOoTeL cXGRiICBPVlIgIiBDMz rbWES0HnB5KTm5DMZGF dIeGoFwVEBfVNZ1YiCp VKg5FNe3WTdPRlCmTET gTTM7Oyy7OPC3IcL6FK xcdCAyIFxcZiBBcmlhb CBcXGZzIDEwIFxcZmIg EUejvSAlGM1hxNcnjBT pblxiXGZzMjAgQjpccG WrWA4PCHJjYZkfYGWga UTSNZU9II1iRKOHIwrj dHJwYXJcbGluMFxyaW4 hMV2UKFr8odCfJRTlP4 OdTPEdRjRgN9YcyVXks TzgZ5QvcHYcUpQvfhZo xK02JEFhGLIuRQJgDHE mmTmrbCBqu02olJM9VG 0knFamh8FxKEAhPQldG K08syvoFJ60GNsmXS28 HJpaWY7zWLWvWKekYWQ hK2ZvE8L6YSjaVS14dK JjmBawi2RvlEl7cHKsU TkdSAJkBbIjUFByp0Hk X7C1UYSkVPykk8boCPD hBDqeu2BoWXqAFIBVWF 5JGV1aqWU9CHfPS0KIT 6dXnAUdIWD2iBL5DFNL WcpvoXH3rZZ9yI81RFO dGALuxXDlYAynT022GB S5WNHyZFocy4dgGKFlH Vnrb4VcDNdBMDHGXR9I HZ6ztJT4NEbRO4TEAIl cBKDhMkobeIKZYMQ4ZF skuIizjJo9u0bkwNRpl 4i8ITjyJER1eWmbkGZf blxsdHJjaFxmczIwIA0 DWZKpxKIWZQX3CY4kVR s9RFscMCEaG7BwT9Sxa gXskLKaRVXfwlMli0lf GMB6QCTdzGVqcCTgOuF yEjtzDTI0BNGvGCslOP 5Ht3zmCDUhgLMdOGJ7W FxcaWQgNTEwMDIgXFxk YsThF3RWXZEpDvH4XSQ uSJYiVBo5KCaaG8DTAL GfORB7KREuCONgBhW7R Yy0BAJRTt4rARRcHUes XGT8FsG3BJBlAKMmEZP gMiBcXGYgQXJpYWwgXF xmcyAxMCBcXGZiIFxcZ dpnSJzvE96eaPvvgV0q CfnszwUmHWU3KPVbtuS NClxwbGFpblxlcGljTm VzdERvYzEgDQpcbHRyc GFyXGxpbjBccmluMCAN ClxsdHJjaFxiXGNmMVx jcgRuQQS6x44aF5nzMB ctj6FamUQlEx2fdYVvu 8C3vJJkrHE1JhzaCZym BkXbIT59tTBocRxjGXI vRqVmaRJmOXUec9K1SA BmcmFnbWVudHMsIDAuN yZ1OSDbUMT5OFPjKuGw lMHlrxMlZ8ilYXqgtRG dYMKdpBcpTJh7EBF2Bp 1fbKZlXDVpkdFFDY4zS Gstcm30WXU8p6dqjTWb QPnkYdfzjROtzyM3BPc TUZLEYYbXScPcIW8zRP xJTktCRUdJTnwyMTAxN gdddJOFOBT7GZxjzCrx wZt0o2hzwVOnv0t2NWr iIIJ8tJOTt3ysvYFzUE xdNynutWMnkaS5GEqDX TWWXVaWRjMjXQ9sREiD QtiUGnH6KiPkHAD6RVu NR6XTyDG0Xgw9UEh8dK tcZmxkcnNsdCBcJzFDf O1fzGaotD2pgWZrL4aw ZnMyMCANClxlcGljTmV gfTBnPkFgkmC7FMCtyG JwLBP7VD3vWCXjbqqcC CKdPCYjPHC2RZecoO58 bHQwXGZzMTZccGFyfVx wbGFpbiANCntcKlxlcG pmm9DhgVZrLBmzMFIvY HXdHOfdHGQvPA9LCoUb GGEmGZWxCVcfXWo9ITl 9VG6UNzOnPGYoCGB7GF U8JjAbIAk0HAmhCB5CA TDmMYY5MeMiYOQvXVQa OuRwBWn0VNTfKZueHOQ yaWFsIFxcZnMgMTAgXF mcNsGzTFPfRQngaiS7D HBsYWluXGJcZnMyMCBE OlxwYXIgDQpccGxhaW5 hREPpH90tv1IJu3EbNZ 4JVOc2rxZblriamF7lO KKqxyRcXYrqaWWcP6zb UjhpVaFnVyOaTQIVf6s vbiwgaGVwYXRpYyBmbG X6jZZuXRuqd9SeiLzyp uM3GP2iZPWtt8ZwvKLe rK6arFW8AUNmWNXfHPZ oZWQjr4K1KJHcxoE1pP SsuHOrXsHhW59pfuAbB VWhQLEyvLdtKH68bYXt zKxtk1NgfMr1eKSiOKp eYZYpRcSxEKVev7YfA9 Z1TVXvSKuij6jqSZWdJ Rogy2XoOTsHCJOQBT3O KC8yxXS4EPgRS1UDK7l DaYKpUFU8uCJ0LGXBJv chbWT8lUA2qD98PRZvB LZiyXEyTOeoM961MTF6 OURzGZtoa5sfMENjPTy zr1IhYFjUNNXGNP4ELZ 7roHM2IIeJI9QPSQnlK YZuIbyigTJUNYT0RXqd nEjlsFu9d8lpdLCam1c 5QQfvMAC5gVchrHXgdh lguEOyfYgdldYfNE0QK GOxnDQRMKY3IR1kQYj4 GUgjYLEgC5TfC7LtixA jyBPuYSVlvuPks4jbFR V7LTMguBPttPPrKiPwJ rwjMQB8LMNxRXfnME7S JYBbLNB8LHiahU54aML jSW8LCQPdCZovQWGqDR TcrtT6IMSyjNUjCVZ2T D1ylUsiqLNouvzcjdQ0 IA0KfQ== Disclaimer (test code = g4lpaZSlKYVjrIPaXmV 9844) zBOQhANWeu2hsXVGobK FuZzEwMzNcZnRuYmpcd RIaGNFqVgBrr7rut828 oTCyc0fxLUBpMgE9wDA gIMZmpGSvP441XTOkKA lzp6ase0HgUVSrmQVkp 6T2JVXEhfdccLp9tMzs T80el2W1GxklY7gqSEX sBVSpB3XiNN8gDZTkQm j9RJN5RLT8WBIlXJIgW 6UdIN0lQMHthIKuJLn6 e6naeEzyYCAyWXT1u6z sBCxdjcSsPN5zet7ozC d7d3pksxDcZOBqDGCry WHGRGJbV0FqfGbiRa0u eNq6eZydYansBQV9Sse 2NU0rov04ylv6pUclMC ZptjjqInN2MDjeFEZiu bxuKZt0AQmyYRQjbAD5 YCWixCXmI3JmXWIuMH4 vyuo3XKW8FPsoGTQeHe W5KNPvdICtNXGbnFntE Yskj845NXS2AjXrTV3m C1Isp0G1zD8ckSMyOAV fmTYzSvShJHThzc2cpX OlIWitg3HvBXM5ttT0g VWceVQrYLHhQM76Wxix h4JsYezfCCQ5GHTzbxI qc4Odi1ofHzBsriSyH2 vhU8XqZFBlNRNrUHFkI lNfsgNsp1Imu0OhcOUn jRz1y8ovRNVbSOPxlAi iu5pjNJZ0KJSxL8W1oW Nan4gpCFeeZGIloFS7o hM2ORSqiSPmG8VkwM3p UUPcQT9snhc1e8dcCGD 4SYqwOQTmQbB9jbU1PM BcaGVhZGVyeTcyMFxmb 498SVM9FaKeVGJjv2Bc K9FkrZojG18evRnuU53 wZNNzpVceuK3mpCjmlS 5cZjBcZnMyNFxxbFxwb DVzbjlsNGptuzE2WWqz iotpGGLtRSewF6jcNhB yUTUenWvtISduv4QyDB WsMRQmUvvzljM7RDYAq 29zZTIzq1CzYSHghI5r hQThCEzaidAroUV7TXw hdmUgYmVlbiBkZXZlbG 8yIJEhXJ8hFJMijgVss a4jclBwCLZmHIVpU8Ti cmlzdGljcyBkZXRlcm1 rwvIoQIW6CZSITL8KLC YuLMPbq85pVYFbcJniu P2zcARuzdPaXOIff1Gl bD1ujFQJFXHtQ8flFG8 zEJuey6RjuLGmnJOzoN O4CSHjw0SeYtBcimKsn NKxrXVgD1BgwZioO6wu FUIqIGIvbcDyiOJkq2G mTSJtgZT0eIDfJT2TIo DPs15rUJHvMAKNstAuM DFxyVnrfWU6qiU2zW0d LiBJZiBhcHBsaWNhYmx gQTCpr097qr7mgoQ5JV BrEMPnbqsvq6WrYIZtF BDweK03PGRaNKIgbm2i tysvcCElkqWuZ0Zdtup 5rU1jIMUjLUgiYCEtGE ZzMjJcbGFuZzEwMzNca GljaFxmMVxkYmNoXGYx XKqtA6jwXkEoLlDiDjm wYXJ9 [facility] 2021-08-31 21:40:26 Test Item Value Reference Range Interpretation Comments Submitted Clinical History [id number] (test code = 33216) mbGFuZzEwMzNcZnRuYm pcdWMxIHtccnRmMVxzc 8UmF2YqNfJeRElqojVa XGRlZmxhbmcxMDMzXGZ 0bmJqXHVjMVxkZWZmMH msXc3bpKGghIeqUmTzH YQaz8lhodKDynaqrWw5 x5bfBUWxRnJ2kVHbTPe hY8xynlZtlIEaBDOdYO b2tG98JYKtcV8ofWJeB QvwrfCyWmT8YXqpHLHj KaL7YXAdyERrZRGpT5q yZWQwXGdyZWVuMFxibH ZdBQS9jCent8J4yXLlj GVldHtcZjBcZnMyMiBO c7NcWVy6oOxvF4UrQCM wDjF6iTHcUVRlASdiDJ BzCLPbxeF4eY77UMrzz xC2vFWvk9Ooo65mj053 dM7uhMXgYKJ4FVYsOVM hoWGfRXKhWMJ2KZUznE SzB5orCWRpLW4fgjkkS AywSGztBUBtwBT1HLMn fQSwZ3MrDJDpXPkjJPT ixgu8FjPkGv9lbAWbnS qqDNdnx0uws9ipvYLrL oc4VEGoWeTuNaptEStl i9Sxs2mcONOzin0qECY 7tIMfpZmzi9U8vEDhKG VcyOQogdErUMKlCpE5U TamXM7bpo64AKRfNYO1 wj0acTImrKxgslVaeMM uYFjxT8ZwDGTuy961GG QmC0NbRIIku0G0odExI vWwYWDqqOI7fyW6YSBw ADv7qNFcfaR6xcCdpJU bI1vclY1bCIMrQP2gxt ckl8qwUUwbYFjyRRIwr GA4efR7XVEywEMaP6Ts yS1dXYIuQUjhVPSrzfk 3PiAzCx7haQMbpDrvNZ xzYmtwYWdlXHBnbmNvb nRccGduZGVjXHBsYWlu XHBsYWluXGYwXGZzMjR nsRbdaGwxhQ9wWnZtDb SsHHqePJ4eKXXtE0ovz NFpINLvVBRdU3sbIwKg mV9asQtsHTjunsDsNDu rz38sSWMeaDYrWP4zbJ DkazDheRMrQK9skLWqi Yubndbji9Jnn9BdS8gs yHTjSRhOALEqOM7enUo shH4uChKbSuJvBzfhJF 7uNAIoQ0yhkPQyZMEvY XQwJ7qkSzJqzT9nyXvh TSesvmCuKTHcfk68 Diagnosis (test code = 34) p1ekjRLnXPLxmUC1YzT zEWHzx4lvh3VcfYStaF PjXBqjoYYuvuXzpz14z HQ8pG42NB5gQXIlOsH8 FHKilbL6Yhp6IZMaMCR jmUEyH301h7bdb5sykc ZmgAW0UARwDONgB2NfV Y6tFHDoeLXsQ84niFNd DVS4SICoRPTpdGZnVYQ qWMB2WTUkkNObR8wlZB XgYZ1nnfkmLWddCVzmI VAzvUW4KSDtfQGfO8Ap CYSeSEikCJAkxnu0VqJ qKe4bvDVjrBnnWTdsIW JkXHBsYWluXGZzMjBcY 4VjGQY9PWA2h3OphoHd ZZCuvT9iy1r9BAVlhok cgHctMCaczT02PxWkQ7 LtDEZ4f8AndgWoOG05W 21sVGZ4lRApRR4aCREg EJcki7L6zDYcXPOpc4E tYWxpdHkuXHBhclxsaT IwaHxoBAtkXEKeY1EfW ZA2NWG6k13aU2kiQQau r5QjtTDiRG15vcUmRAM vxQ9ku1r9GMXekpgjuQ qfLFhhdL56SrWuU7PxL EFudHJhbCBhbmQgdHJh quOvgFmwlwNdIM02I06 yHMH5iQIaNSEgVZM6qJ VkMGlnh8Csy3TczKj7S fafRGKvSp8kCKhkPNXe aWNvYmFjdGVyIFxpMCB vcmdhbmlzbXNcaSAgXG qjYVtTRqTnm6OfqB4xN G5wRAvjsTDieBegVEmj pZY4SHZdRLJiCAIfZOG udGlmaWVkLlxwYXJcbG kwXGxpbjBccGFyXGNmM YERMmHNgN0rHWPoFQZw SSZ9gxotRBIvQEtnna1 ezQohfuu9cDcuVsyfsC L1DffzRVZfdQb8ZxCwh FhbUtSwZVFbIMNSgV9t vDWzF1hwuvQrtQ5rgZN uXHBhclxsaTBcbGluMF jjFSSrG9TpSLR8FNPkt K0yVZLsKBZcrPmiWNIz PXn9snBbTDdnl5HlqZq jevS3XU6lCFQfi3XdvI HucP3rpIQhDDVwh2Ujb TpccGFyXGxpNzIwXGxp bjcyMFxjZjAgVHVidWx owdBiZEHnw19bXowoMU JccGFyZFxwYXJ9 Gross Description (test u3nhmRTgYVSysJKQQEb code = [id number]) wMVxhbnNpXHNwbHRwZ3 CozfrgGUlySI2iNP1mv DdumKNudFBuWA4RTAJr ZmYxXHBhcGVydzEyMjQ eVDAoiHMwaFU6CSWbHQ 1hcmdsMTgwMFxtYXJnc lW1KJIjxWLqE1VwVLPh DV0cxutnLPA8WEorhD5 mrpQTGscxWc7kpKQqqV tcZjFcZmNoYXJzZXQwX RIggAmrNTAjEHc4vY6B CtccV56oi9U4Ksq8VQZ dTGZsF7RpEN6fEIXphT NlI51OMgzhRDY1OSLFQ hbuQPBfLI8Uh7wzFTYy pEDsEQG0YLsoqIOxHUM bYVQoBMe8GMOiUJuxwA RvYD5waAlrHqbeaAdco 2VjdCBcXGlkIDUxMDAy YXuzWGPlTD2HYaZhJDZ dBNHuXSrnYWw4GNi0LP 2MFnInEPDpXNC7CVT8C RBfDZz6IPtwSC0USCYh XRZ9KDwuWUJbJSGePpW zRRz8OGQuILenTLHayH FsIFxcZnMgMTAgXFxmY uHzWKLxENgoxbN9CLDr YWluXGJcZnMyMCBBOlx jMQPqWFjbePziyG2qTK NhB75cr9RLv4BwAJ4PC Fh2jaQuehoegY6qDEIi ygWrKSivuBNjI9hnSpr hDsJgMuBwDJBHkV6nVY 45dVqgEFZrDMJdcL74S CGjWKIdIPLfIwPfj9F5 TLTdzrW2mWEjuRDtEjW iS00scwQeYJPmRyFcY5 8cCQLjQwP7JFDuQKNcj nRpcmVseSBzdWJtaXR0 ZQYbpH0rRAYuAHCskOG szDSxnYkaLcybsNI6EB wrYwckdI3ntBEDVHGKX unGVlwbwyGsKD5RXQ0W OtPVNE39EdRqJPW1ZXa FT9ILkGY7Bbr5OQu1lS tcZmxkcnNsdCBcJzFDf E4QFKolDpcsqRO1MZsx VppmuM0xaXXYQTZRBcn FRqemcrVwOO5XEU8KXM 8ClWJlMGX4wYF8BHAJW sgpdBN6iIN0yV83RNJf YEBjnGYaYKeeI533FGA bDZulREj4sqBpDWGtQm FlDYmsZPGxF10yd5IPi 8IrJLRip1sijQmfz1Ub dGVuZFxwYXJccGFyZFx quO8aNqBrs9yehKb1RA xdsiF8VKVuwz0quYrnd W0xZXe0LDhpXEBoK7Yx L3FbUVjhTFK8GALxBlF cXGRiICBPVlIgIiBDMz vnJYR9VaY1EVl1SNMWW iGfBlJrNBVaLBZ9UuFe HJl5YFc0AHiOViQiJRT rVLU7Uau6KML6DkF3LH xcdCAyIFxcZiBBcmlhb CBcXGZzIDEwIFxcZmIg PZmfgEDxBX3rhGejxZY pblxiXGZzMjAgQjpccG WcWM8MJAZhTVxzTLKpt QNREVV3RO5iBBRAHegj dHJwYXJcbGluMFxyaW4 xOS7AKIp1pyDiCAPnU3 YwCKZaMoHgZ4IhsCIsj AraT8LypGLhXyNunsSt uQ89ZSOhKAUyPMTvBCN rcNomqZLyx01idBY3RV 8dzSfpq6KgCFAvROyxK V34ptndUY99XFucGO16 DFddYY7eDEBvYFksNOL qO8QqE4S1HIgsJU05yG YwrWhfa7RurGi6kULgJ YrwLQBhBnDdBTNnz4Dx B9M0NNZxUNwjp4raBMD dIUevr4AiREtSLFZNRD 2GEQ5pbOX2UElQU5UZN 2cWuXKbXWU9nGK7BJTV MqslyAX7iYU1rI20TZU pKTAekJSvBGhtZ997HI K0VRSzPPzco5smVYBmO Sbpc7RoQCeLFZGITM9Z YA0dgMB3LFpCS4MSYCl gQOFzCqcrcDDHTGN1PY ugjTvkwPc4r9mjnFIye 3b0IDvkXPJ0vJoaiUVh blxsdHJjaFxmczIwIA0 JFHLahWNBKTS6MT5uIK j3NSxzBSQzL9NlQ8Xzo yLaySWcKJCisyEwu9wk LQE9ERRabLHscCBrXsO wBjvzWIX4MCPtJMpxJN 7Te2oiIJHkyUYxLVV8H FxcaWQgNTEwMDIgXFxk RkXiH9VHNDWmQoW7QQP uOVFrXWi4DOncV3YXPI YxJJM9IDLrADOeQtC6C Ec6YNSLXb6vVRPxYYaj NWD4PxY7TYNiMCTnABZ gMiBcXGYgQXJpYWwgXF xmcyAxMCBcXGZiIFxcZ lghZXvsK54lrPxutX8j HvnxeqNqFMI1YAXjwbZ NClxwbGFpblxlcGljTm VzdERvYzEgDQpcbHRyc GFyXGxpbjBccmluMCAN ClxsdHJjaFxiXGNmMVx idpHhZIX8x99cL0epQO bpi0FnjXNcZf2sqECtl 9I9lFAybLJ5FdrtPQcl UuAbFX63yJLaoNfnWFB fDkOqlCKwKCCkt7S8QX BmcmFnbWVudHMsIDAuN fN9LIGgLXG8LUJuDbIl bCTcjxMmM1mqJCrykTP zLBBipDizVXo0DOV4Mx 4laYSeRFNtxjICCF6dO Retks69HRL2h8qwwSOk GRkrTowvlIPbyiX5QBu VHDJLQVyDShMrST9hBF xJTktCRUdJTnwyMTAxN gaklUXKQCN8YJisaQlq nVn4q3vquGDvw8c7WHe gCUU7oTHAm1vitFTyFJ doJdxurSDtgwJ8WWhJZ IAQYOlFCrHjGN0kPTvT KqiYXmF3WaFjWBG1SLc JM9XTpTJ1Gpo6RDu8kR tcZmxkcnNsdCBcJzFDf J9avTocoF0ihQMnH5mc ZnMyMCANClxlcGljTmV chLIzWyNbvzO3UEOpiA FgSJO4KQ3cAEOsnvdtA SXwYHPzAAP1LAzyhS90 bHQwXGZzMTZccGFyfVx wbGFpbiANCntcKlxlcG cwp2TlfTDsUTjfSYNqJ IUvDWezUICbMQ5ODfSh ZVSeARRcYOvdVQh4DQv 3DO7JDeKkSPHgNSE4OT D2ItShBYt7WYiaDX0NS JZyGRV7LvNaHEJmNIFn NvYhLZa6VVLeCVihINR yaWFsIFxcZnMgMTAgXF zwSlUsKCWrLYqopfY5U HBsYWluXGJcZnMyMCBE OlxwYXIgDQpccGxhaW5 dQYScV66mm8GEf2VbZL 7BYKf7aqOjdsaytN1pU ARptjLyYLiocNYvT0ct DvwvMoDuZxFsZVHQk2z vbiwgaGVwYXRpYyBmbG J5jNDlPBpmg1SgvCddo wR7PA3gRUZnp4KbsWDq yR4kaRT9KHXgCBPqIDC lJOIou4J2FKBffaR6jF SgyGTaOiPwI71wzmYlS KJsOLRcbBlfKZ94yRLl eIurm4JbzCt2zCHrVAz zRVSxYcElJGAlh3OtS9 M9BJKfFEibt9muZJFbV Mrra6QwTPaGIJYLOC2L RQ3gxWO6RDfPH1WXX7u PnSNlALO1rUC9ZYPVVy fuvBS8pFE2cK30VAYwR MVhrDEjFUqmV070MCF0 MAFxNXzut2djKJTrPEr vg9BnUKpDBZEOOS0FFM 4dpVO7GGqGH3QQPFfsO FUkRfgkvJLJHXM3YHpd aXxirXr8x3gqkHSiw5h 3FDvdZAR1nEpmuYCkxi rbaMIdkTzgdyBmPP3FB HYcoYZMUVB4BO6aYWh4 PCmjVCWoS6RcN5DhkdP nkFSyMQWtlsPih3siIX D5EPDzqPKpcMRpOhJbC joaYZB0KGLcJLjkTF0Q JRTyLMM5BBketU85lSI aJP9XAWUkNDgfQTXcYS RxnuV0LRDjwPYoIPO4U W2dkQcfoTGwgttthqV5 IA0KfQ== Disclaimer (test code = s5uadSPxGUHwvBFrHjZ 9844) wSUDxSJPpm6enHTTbiH FuZzEwMzNcZnRuYmpcd QSpQKHfOvAsa7fze621 iFVnd9pfGLRpRyN4aCO jSGKvkFGmO576XFYmXI hbh6vyr1XjJHMkxEZou 8M7JRCNaxkqaZy4rDze F39hs6K4DqffJ0jmMQQ tLMHaD3AjND0uHVRnAe h3TEP8TAC8AYKvMILyA 4HeLX5gCJDduNSfTQl3 p4pbdFtnYPVrGGJ1o5h qAEvrztTvGI5txz6lrX n1t0rxkxLtYAVkPRLtj GAZYRXwC5ZzhGqvAg1l dCg3sWakPdsqMZA1Jxh 1AF2qnn41ike7fCymYM XdhifrIrX7ESlhTGSck xmtUDz1SWynFMWukIW7 SFYykSTkB3YzOCMiUT5 ossb3HWF9QVvaCGBaUy L1IIDtbJUxVKSopOanT Fkde783KXS1WzHyIF6z P8Gta3F3iM4heTKcCSC kjNMgElCxFQQifg4aiN ScNBzed2KmENP6fgE1s KPofYMyHVXtAI74Tukc a1RnWhtsHBT4SPHphyA oa6Rhv4liQvGxrhFmY8 xrD3SzKYYsZJCvZJAzE eBesxVwj7Nxz3NigSJd xTi4k9exJULlEJEstIy ob6vbRHE2BZOwS4M7jI Vor2ihPIduOHPseJN9b aP3JIRhiVTkX0TzeR8i JRKyFI7bhxs4d0ofPAE 0BSuaHJViNbW8ifN6UE BcaGVhZGVyeTcyMFxmb 582JQU8YsLzKVFlk7Kv L5NbkXnpZ49fwGvmB13 qETGomRkxgM3zaYrkdE 5cZjBcZnMyNFxxbFxwb YMchvhqITwprvH5PIvx wwmrOWKlNPizP5pyXoU fGCPskXocVPepw9GuZZ PxFGIuIxmqkyC7JFHPi 50wOSKms4RaXOOpjQ9d eQHtWPvkhzEnyTL8BRb hdmUgYmVlbiBkZXZlbG 7pJFSeUD2nOHPdeaDzd z6vvmSeQEEyNUDzW9Se cmlzdGljcyBkZXRlcm1 teiYgSRL1STFBAS1RNB JmKAWvk39ePSTymUvcp L2vtULketJwYIQcx1Qt sF5riBXVYCJmN2cwJQ5 hWLfsh7GjpOOggLCbgH E2RHSmc2WuCjLkhtHqa DGmaNVaD6ErkTntU4di RCKjYHQqksIpnFNyv2Y qMNUkbTB0tDNxNW8OOp JJw58jNIPyITWVeeDpK OSkjSqfyUB2zpK5aT2f LiBJZiBhcHBsaWNhYmx oYRPex165at8dfrI9QW WsODLzbjjnw3FbGCKwR XFmjC76TMAqONLwec9n tnlazSWixdSxY7Rmljc 3fU3iKQWqJCoeBSPaTG ZzMjJcbGFuZzEwMzNca GljaFxmMVxkYmNoXGYx LLpfD5ksXhZbHoOiRys wYXJ9 [facility] CenterConfirWestern Missouri Medical [id number] 01:27:34 Test Item Value Reference Range Interpretation Comments ABORh Confirm. (test code = 882-1) O NEG [facility] CenterConfirWestern Missouri Medical [id number] 01:27:34 Test Item Value Reference Range Interpretation Comments ABORh Confirm. (test code = 882-1) O NEG [facility] CenterCOVID-19 (SARS-CoV-2) PCR- Asymptomatic [id number] 10:04:37 Test Item Value Reference Range Interpretation Comments COVID19 (SARS Not Detected Not Detected CoV-2) Result (test code = ____[place] i [place] a 69102-0) qualitative reverse-transcr iptase polymerase mario alberto n reaction (RT-PC R) developed for t [employer] RUFINO 680 0 system and inte nded [...] patients provid ed by the manufacture r ([employer]) c an be reviewed at:https://www. fda.go v/media/168379/ downlo ad. A fact shee t for Health Care pro viders is provided by the kaiako kura tuarua ([employer]) and can be reviewed at: https://www.fda .gov/m edia/108425/denys nload Results must be interpreted wit hin [...] were verified by the Microbiology Laboratory at [facility], CLIA Accreditation # : [id number] and CAP Accreditation # : [id number]. 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 pneumoniae antigen in urine, suggesting no current or recent pneumococcal infection. Infection due to S. pneumoniae cannot be ruled out since the level of antigen present in the urine may be below the detection limit of the test....Reviewed and Electronically signed by Pathologist:Amaury Sinha MD, PhD #[id number] [facility] CENTERUnUSMD Hospital at Arlingtontreptococcal Urine Antigen Path [id number] 07:11:21Streptococcal Urine Antigen Path ReviewPresumptive negative for S. pneumoniae antigen in urine, suggesting no current or recent pneumococcal infection. Infection due to S. pneumoniae cannot be ruled out since the level of antigen present in the urine may be below the detection limit of the test....Reviewed and Electronically signed by Pathologist:Amaury Sinha MD, PhD #[id number] [facility] CENTERUnChildren's Hospital of San AntonioLegionella Urine Antigen Path [id number] 07:11:20Legionella Urine Antigen Path ReviewNegative for L. [...] Electronically signed by Pathologist:Amaury Sinha MD, PhD #[id number] [facility] CenterLegionella Urine Antigen Path Okbvgq2144-28-03 07:11:20Legionella Urine Antigen Path ReviewNegative for L. [...] Electronically signed by Pathologist:Amaury Sinha MD, PhD #[id number] [facility] CENTERUnChildren's Hospital of San AntonioTroponin T (In-House)2021-07-10 12:49:59 Test Item Value Reference [...] of myocardial infa rction > 52 ng/L Sugg estive of myocardial infarction Crit ical value will be r eported when cTnT is > 52 ng/L and only report ed for the first in a series. Hemolyzed speci mens with Hemolysis Index >100 (100 mg/dl or moderate hemoly sis) may cause interferences a nd falsely low res ults. [Automated mess age] The system [employer] generated this result transmitted ref erence range: <=18. Th e reference range was not used to int erpret this result as normal/abnormal . Lab Interpretation Abnormal (test code = 88322-2) [facility] OmahaTroponin T (In-House)2021-07-10 12:49:59 Test Item Value Reference Range Interpretation Comments Troponin T (test code = 37 ng/L See_Comment H < 19 ng/L Suggest 9384) retest at 3 to 6 hours later to rule o ut myocardial infa rction >= 19 to <=52 n g/L Possible myocar dial injury. Suggest retest at 3 hours. - a change of < 20 ng/L, r etest at 6 hours - a change of [...] res ults. [Automated mess age] The system [employer] generated this result transmitted ref erence range: <=18. Th e reference range was not used to int erpret this result as normal/abnormal . Lab Interpretation Abnormal (test code = 58326-6) [facility] Centertreptococcus pneumoniae Urine Icqqfro3989-01-06 23:04:40 Test Item Value Reference Range Interpretation Comments Streptococcal Urine Antigen Negative Interpretation (test code = 91640758) [facility] Centertreptococcus pneumoniae Urine [id number] 23:04:40 Test Item Value Reference Range Interpretation Comments Streptococcal Urine Antigen Negative Interpretation (test code = 41437710) [facility] CenterLegionella Urine [id number] 22:58:02 Test Item Value Reference Range Interpretation Comments Legionella Urine Antigen Negative Interpretation (test code = 5195465) [facility] CenterLegionella Urine [id number] 22:58:02 Test Item Value Reference Range Interpretation Comments Legionella Urine Antigen Negative Interpretation (test code = 1056859) [facility] CenterD [id number] 19:02:48 Test Item Value Reference Range Interpretation [...] . Lab Interpretation Abnormal (test code = 92429-7) [facility] CenterD [id number] 19:02:48 Test Item Value Reference Range Interpretation [...] . Lab Interpretation Abnormal (test code = 72908-5) [facility] CenterPOC Chem 8 without Hemoglobin and [id number] 18:20:24 Test Item Value Reference Range Interpretation Comments POC NA (test code = 131 See_Comment L [Automa mary message] 04195-8) The system [employer] generated this result transmitted ref erence range: 138 - 14 6 mEq/L. The refe rence range was not u sed to interpret this result as normal/abnor mal. POC K (test code = 2.3 See_Comment A Method de scription: 30981-9) The i-STAT is a n analyzer used f or in vitro quantific ation of various anal ytes in whole blood. The device uses a s lindsey disposable cart ridge which contains microfabricated sensors, a calibration che ution, fluidics system , and a waste chamber . Each test cartridge contains chemic ally sensitive biose nsors on a [employer] ip that are config ured to perform [...] L [Automa mary message] 2068-08) The system [employer] generated this result transmitted ref erence range: 98 - 109 mEq/L. The refe rence range was not u sed to interpret this result as normal/abnor mal. POC VTCO2 (test code 32 See_Comment H [Autom ated message] = 2026-06) The system [employer] generated this result transmitted ref erence range: 24 - 29 mEq/L. The reference r jackie was not used to interpret this result as normal/abnor mal. POC Anion Gap (test 21 mmol/L 10-20 H code = 82237) POC BUN (test code = 16 mg/dL 8 6299-2) POC Crea (test code 1.0 mg/dL 0.6-1.3 Medicati ons, = 95190-7) especially hydroxyurea or supplements, gomez ch as [...] ally sensitive biose nsors on a silicon [employer] ip that are config ured to perform spec ific tests. The microfabricated sensors measure analyte concent ration by an electroch emical assay. POC eGFR-AA (test 87 See_Comment Normal eGF R >= 60 code = 94189-0) mL/min/1.73 m2 The eGFR is calcula mary [...] dialysi s) [Automated mess age] The system ic h generated this result transmitted ref erence range: >=60 mL/min/1.73 m2. The reference range was not used to int erpret this result as normal/abnormal . POC eGFR-JOSELITO (test 75 See_Comment Normal eG FR >= 60 code = 15076-9) mL/min/1.73 m2 The eGFR is calcula mary [...] dialysi s) [Automated mess age] The system [employer] generated this result transmitted ref erence range: >=60 mL/min/1.73 m2. The reference range was not used to int erpret this result as normal/abnormal . POC Glucose (test 132 mg/dL 70-99 H code = 09228-5) POC Ion Ca (test 1.00 mmol/L 1.12-1.32 L code = 87726-5) POC Sample Type Venous (test code = 6690) POC Clean Dev (test Yes code = 6672) Performing Lab (test MDA Main Main Ca mpus code = 52627) [facility] Cli nical Lab, [address], [place] [address]; Senior Systems Architect: Paty Chavez MD Lab Interpretation Abnormal (test code = 53841-1) [facility] CenterPO Chem 8 without Hemoglobin and [id number] 18:20:24 Test Item Value Reference Range Interpretation Comments POC NA (test code = 131 See_Comment L [Automa mary message] 69933-5) The system [employer] generated this result transmitted ref erence range: 138 - 14 6 mEq/L. The refe rence range was not u sed to interpret this result as normal/abnor mal. POC K (test code = 2.3 See_Comment A Method de scription: 21880-0) The i-STAT is a n analyzer used f or in vitro quantific ation of various anal ytes in whole blood. The device uses a s lindsey disposable cart ridge which contains microfabricated sensors, a calibration che [employer], fluidics system , and a waste chamber . Each test cartridge contains chemic ally sensitive biose nsors on a [employer] ip that are config ured to perform [...] L [Automa mary message] 2068-08) The system [employer] h generated this result transmitted ref erence range: 98 - 109 mEq/L. The refe rence range was not u sed to interpret this result as normal/abnor mal. POC VTCO2 (test code 32 See_Comment H [Autom ated message] = 2026-06) The system [employer] h generated this result transmitted ref erence range: 24 - 29 mEq/L. The reference r jackie was not used to interpret this result as normal/abnor mal. POC Anion Gap (test 21 mmol/L 10-20 H code = 15472) POC BUN (test code = 16 mg/dL 8- 6299-2) POC Crea (test code 1.0 mg/dL 0.6-1.3 Medicati ons, = 41717-4) especially hydroxyurea or supplements, gomez ch as ascorbate, can interfere with test results causing a falsely and significantly h igher result than exp ected. If a problem is suspected with a patient's resul t, a sample [facility] b [facility]. Method descript ion: The i-STAT is a n analyzer used f or in vitro quantific ation of various anal ytes in whole blood. The device uses a s lindsey disposable cart ridge which contains microfabricated sensors, a calibration che [employer], fluidics system , and a waste chamber . Each test cartridge contains chemic ally sensitive biose nsors on a [employer] ip that are config ured to perform spec ific tests. The microfabricated sensors measure analyte concent ration by an electroch emical assay. POC eGFR-AA (test 87 See_Comment Normal eGF R >= 60 code = 38839-1) mL/min/1.73 m2 The eGFR is calcula mary [...] dialysi s) [Automated mess age] The system [employer] generated this result transmitted ref erence range: >=60 mL/min/1.73 m2. The reference range was not used to int erpret this result as normal/abnormal . POC eGFR-JOSELITO (test 75 See_Comment Normal eG FR >= 60 code = 38716-5) mL/min/1.73 m2 The eGFR is calcula mary [...] dialysi s) [Automated mess age] The system [employer] generated this result transmitted ref erence range: >=60 mL/min/1.73 m2. The reference range was not used to int erpret this result as normal/abnormal . POC Glucose (test 132 mg/dL 70-99 H code = 06613-2) POC Ion Ca (test 1.00 mmol/L 1.12-1.32 L code = 05004-3) POC Sample Type Venous (test code = 6690) POC Clean Dev (test Yes code = 6672) Performing Lab (test MDA Main Main Ca mpus code = [address]996) [facility] Cli nical Lab, [address] [place], [place] [address]; Senior Systems Architect: Paty Chavez MD Lab Interpretation Abnormal (test code = 52329-4) [facility] CenterECG 12 [id number] 02:02:59 Test Item Value Reference Range Interpretation Comments Ventricular rate (test code = 253) Atrial rate (test code = 255) ME interval (test code = 266) QRSD interval (test code = 260) QT interval (test code = 264) QTC interval (test code = 265) P axis 1 (test code = 267) QRS axis 1 (test code = 268) T wave axis (test code = 270) EKG impression (test Sinus code = 273) bradycardia-Incomplete right bundle branch block-Septal infarct , age undetermined-Abnormal ECG-In automated comparison with ECG of 26-OCT-2020 09:52,-Septal infarct is now shyxpzz-Jof-zhbpybwt change in ST segment in Anterior wdixf-Htz-ptrbkzup change in ST segment in Lateral leads-Nonspecific T wave abnormality now evident in Lateral leads- [facility] Yfukwk1390-81-74 18:26:09 Test Item Value Reference Range Interpretation Comments CK (test code = 5206) 84 U/L 39-308 [facility] CenterCreatine [id number] 18:26:09 Test Item Value Reference Range Interpretation Comments CK (test code = 5206) 84 U/L 39-308 [facility] CenterCKMB2022 18:26:07 Test Item Value Reference Range Interpretation Comments CK MB (test code = 2.6 ng/mL See_Comment [Automat ed message] The 5209) system which ge nerated this result tra nsmitted reference range : <=10.4. The reference r jackie was not used to int erpret this result as normal/abnormal . [facility]2022 18:26:07 Test Item Value Reference Range Interpretation Comments CK MB (test code = 2.6 ng/mL See_Comment [Automat ed message] The 5209) system which ge nerated this result tra nsmitted reference range : <=10.4. The reference r jackie was not used to int erpret this result as normal/abnormal . [facility] CenterPathology Outside Interpretation 2021-06-13 20:17:02 Test Item Value Reference Range Interpretation Comments Materials Received (test s6wiqHTjEIUjiFNqBuKk code = 9973) FVOzCFUcz6tjWNMceIIt ZzEwMzNcZnRuYmpcdWMx FHIcFxDio1jxf915uEGx f3gzDOIcVhY8zENxKZTr uMCaA715EBZhZYpto5hn m8ZuDZNuwRUtr5M3AIVK bxxvuDj1yGlcD79cd6F8 XlfgU4bwEQRcEXPyA7Ij NX1aRPGmKwb0WAY4FCX6 QRHwYBNiQ2AnWX8iKTMc qGJaTVt9y9nhqPznUFJi RLC3y0tiUVjjhdEmSI7w ee2ojUf4w2mnxdDgLBPs PVIelURXWRXuB2HywDqo Vl8lzAg1eRcqNetsFGS6 Zuo3RF0tri40bcy7tOms KYBvmipqJdS1JXqoORYg jfqvNZv1ACdlKPFauWav MFxtYXJncjcyMFxtYXJn kJK5JBCuyLTwF6QbIMYq JLzkMGTvein6PoBpGd2c sRWlzQfhQQvfh3mkf4yl hWUqDot6XTFcKaEmEwid BIaza9Cgo1fvFVPwgv4t KSV7vMDufDdnt3D3sLJc CZQcyMYgsgQtMQPmij96 sFNybMZdvVNwqs3oelEs aHSpmFYwGTU6vTHkowYg JZAgvRGlNPTfFU2poMGu CQFlrD2lcdvmXEFcVaRk hhwfTPRgqAreevNfKw1o xBizRSP8EThxI5fhwV5r CdA4MIigU5lqjS5oZUz3 PFseeTB1TIBewU1nZN1s ezbjd2mdUbOtQD0eclag e5zbCrHcFX6hqgy5k2xf TKX1TXwxEWLwJsT0keY0 NDBcaGVhZGVyeTcyMFxm a899XZG9TdOpMBEpf3Tw A6NtfKakQ77awGnmU60l SEKvxDxvqU4rdDisyY8s MmBmBhJeUNc7cr66PTh1 jkqraPtwASq5yoLmOULr JGR9JKWnbLUpRVIxY6w6 liWmJCMcLAS9LLKxoGKm SBLqL8k1gnWnULX1BVh5 cnBhZGRmdDNcdHJwYWRk YjBcdHJwYWRkZmIzXHRy wDOhiNJerLYfuO5fsNzf IPKitKRyeD0bLVC3YCKk cmgzMjBcdHJoZHJcbHRy al48CWXavmZjuMFxuVhq oJIqDTT1KDYwVQOlCLHj RDR5FKRrPeOkiiTdFTlo bGJyZHJiXGJyZHJzXGJy VCD2KPLnMxOofcWwQQgf bGJyZHJsXGJyZHJzXGJy SHU9JGVdRoKpoyHtQIzl bGJyZHJyXGJyZHJzXGJy DDQ5UZBhUzMxadPuDTar bHBhZHQxMFxjbHBhZGZ0 X7rnaEDeMHKxVAghiVWa HLRpN4ikmPFzIJyeJGKn cGFkZmwzXGNscGFkYjBc P7hzLAZcUjGlR0PtoDs4 MDAwXGNsdmVydGFsdFxj jNFfJLC7XOPlYZCvRYDj MMW0LHYnTfNrtpFaGJma bGJyZHJiXGJyZHJzXGJy WEO4HRTeLaWebpKhDCex bGJyZHJsXGJyZHJzXGJy WJJ9HKMoMkKmexFbWMbv bGJyZHJyXGJyZHJzXGJy IPO6DXJnZvDhwvSgAUhd bHBhZHQxMFxjbHBhZGZ0 Z4ovtCXhYYAlRHpqpZVm EIFgY8npeUCcHBzqLMCg cGFkZmwzXGNscGFkYjBc P4kqNCOzCxEeS5VblZj9 NjAwXGNsdmVydGFsdFxj zTKoOMC6EUOrLDYhNHRu PYH0WEHfOkLxnwPjQXqs bGJyZHJiXGJyZHJzXGJy FGZ6UMVnDjEpxyPcATzm bGJyZHJsXGJyZHJzXGJy WES2LIYvMoItrdOgVLfv bGJyZHJyXGJyZHJzXGJy GFP0ILJgBqJnjvYqLGfo bHBhZHQxMFxjbHBhZGZ0 O6ntpLDbJUBlIFkqbNRk YBVaL9ndwOLzWRzlOEOx cGFkZmwzXGNscGFkYjBc H6nrUXZeQfCzM6OeyMz6 NsJcRKEwdzUlaS34Dedx e0QdLNUzCGK1ICcfRVuy bFxwbGFpblxmMVxmczIw WMxaibzyZPFlFEfzS0up QaSlZMHdsDqaTJrjt8Fm XGYxXGNmMlxmczIwXGIg HXIeZGNmjF5fTzurN1Xj nV4jTFyfFbzkU8vgMLNq e3QxkI4ePByfoVQsahuq MVxmczIwXGxhbmcxMDMz ORvgA8ucFwXwBLLheZob VDwld4DkACWiSSRoFpqn fpJaVPr0jpCbRJLqnEyb rXOjEVkmzhZtqKsis6Ba ktXikHdfFHIqSLi7cvCh kkrvdDh0vXZjnDdhUTMw sCivmB8cPuIgIeCrIJqm bGFpblxmMVxmczIwXGxh xzcaFJSdWFmcC2beQsJu IUNyjLvgNIkco9TbQJFz EPEaBbbcapNvEZQhJ45n bGVjdGVkXHBsYWluXGYx XGZzMjBcbGFuZzEwMzNc aGljaFxmMVxkYmNoXGYx CRmpD6fyOmQrE2OmOMBg MvHwtDMmI2prS0LqfKqe YXJkXGludGJsXHNzcGFy UKU8jZZfgrMflNFbtRJj PWOvIAqgYHX9iYCmjmmv uVUglcfkOQkvrdB8KRIc YWluXGYxXGZzMjBcbGFu ZzEwMzNcaGljaFxmMVxk CbRcVAZxFBvuF9joQoXt B0MyIEVmXtXoYsYVKTXq aXZlZFxwbGFpblxmMVxm czIwXGxhbmcxMDMzXGhp F5jeHiYpKPEeeLyxTOey e7VgJRCjQLLvVugeeiGl QCm3keThYKPgjJejuO23 Amwtez53MQRgl0mwVIUp X2XcxAMcUYPaxNZgCJcd MDhcdHJwYWRkZmwzXHRy cGFkZHIxMDhcdHJwYWRk ZnIzXHRycGFkZHQwXHRy oGTgBOG9E6v0ouJbDMSi RXp7hxPkQFNnQjXcsAJn BTV1QKe3UztoqoX2jOJx R8w6KyoaruLqQDwskCNj nc16GUPxgaHfdCUbnLpg dOKkIMS7TPBeCDCdBSWx RXY7NCPzSgKbkiKuRQar bGJyZHJiXGJyZHJzXGJy SVI7WSTxTxKrziJhMWck bGJyZHJsXGJyZHJzXGJy XVA2NBEjOsNagcQlGIjg bGJyZHJyXGJyZHJzXGJy YFZ2WAKkCfZvuhWcAMts bHBhZHQxMFxjbHBhZGZ0 N9qdaWWeUCSuYMjgyJMc HNWmE6uwsHQdOKrbDHOg cGFkZmwzXGNscGFkYjBc Y5pxXUBuLuAdT3MagUe9 MDAwXGNsdmVydGFsdFxj kXWeIQD2IIMfKFQoMOMh HVV0NCTmFyDhaaDuUWzr bGJyZHJiXGJyZHJzXGJy URH8YSZmVlSpysRrSDwb bGJyZHJsXGJyZHJzXGJy ABP4TSFdPzFwwaBwYUkf bGJyZHJyXGJyZHJzXGJy RBB8YULcTcElrdDkRUud bHBhZHQxMFxjbHBhZGZ0 R1zelCFwKALeFWxypPNo EOYlM7jgtHPwDKcuDEOw cGFkZmwzXGNscGFkYjBc B1ptBUQyCcHoX1YeaNx9 NjAwXGNsdmVydGFsdFxj lAWbUKV9TLUcAJBmNBVr LSM7WUZhCdZahhYlFNdc bGJyZHJiXGJyZHJzXGJy IAD1PUHqDgRufxEkOLle bGJyZHJsXGJyZHJzXGJy ENV4ZBTzYzLiiiWzKWxt bGJyZHJyXGJyZHJzXGJy GXM3CRYaFrDprpYsTKaq bHBhZHQxMFxjbHBhZGZ0 Z3htpNCyQXMsOLdzoHVe UXBjF6tgfQNsARuoUALk cGFkZmwzXGNscGFkYjBc W4kvSVXcGwUuN0QcvNu7 EeFmYCWfqtMdqQ43Mtjj u5XhBRZvVSD9YZxtUApn bFxwbGFpblxmMFxmczI0 XHBsYWluXGYxXGZzMjBc bGFuZzEwMzNcaGljaFxm TEzoUuLcPZJjPGfkD4gt NnFxP4QlBMFnKjYaWA9k SeY9NSDzYTE6JLG0YHRR FTLzQOYSL8LYQcwzIHFX F6DirOzuiO4xNdZnEjMu HSwaOO6dVUKlF3eghDIx LXFdNXLvH4smLpCsiK4e aFxmMVxjZjJcZnMyMFxs dHJjaFxjZWxsXHBhcmRc aH80Aaenr3QrZCCwNXT5 MFxzMFxxbFxwbGFpblxm ZRnescM3GPXsZKxuMLLg XGZzMjBcbGFuZzEwMzNc aGljaFxmMVxkYmNoXGYx LVctP6bzAaHnD5XiQKCh MjAgMTAvMjUvMjAyMVxw bGFpblxmMVxmczIwXGxh vghqRIQnHHhtP9hvAyJh YMVuzZerTSmle4PnOIWg OJJsZiglmdRgMJr5pnXw XGNlbGxccGFyZFxpbnRi jLyhl4FtlyTjrQjsBAZr XHFsXHBsYWluXGYwXGZz PgZgyMorxH3vIxJlJdXx GGjfKU1aBBVlK4fqpIFo DUQnYGZjG6zvEnCtzN5y aFxmMVxjZjJcZnMyMCAx QC2wEn7oCYNhEOSrALdt XGYxXGZzMjBcbGFuZzEw MzNcaGljaFxmMVxkYmNo FKAcUKcvX0xpLeEvE4Be VDTvMpBpnSHrQ3ziN5Mu mExbhyFqqMkru8dmbFMm OWzfc8JbvsBhxJrxPHYc XHFsXHBsYWluXGYwXGZz RxVsbSlxzS5yZfLyEoWx TXcrZS4iYZQbU7mazVFs WJWhXTBsJ4wdAhVglM4c aFxmMVxmczIwXHBhcn0= Addendum 1 (test code = j9nnoAXyEPNpmWH8JtJp 37) EGTic1nsk1WqcSKpjVAl GIvgeBNiryDqht61gGW9 lZ20ZE6zBQFcYtQ0WSEa dyU6Lqe9THHjDTRmbUPx H136u2tly3fzwxDjnTH3 rJyrUSGzjpzeEfR3AJud FFHncqwbUCy2PVqxBHUd fKV2XNNumUTaG6IfNOVw NP8ucht2CYG6IZbbGFMc QtZ0THNntCYxWZQceNwr NXgid245GQS4RrNuVVDi eiGhhLzvnT4hOnLyKJDL BNYvtQrrmxHyBS5zkFLn uVRpTTRjF8TomoCwIE2n KBDmLfCnFnTlVxYpFN66 iFUlJEJhNNJwYRNjrO6g BgjjZrL7NLXwNBC8JRGn TKEYSVRoDTJIN4XPCBDv FPAUTvwxZ27noSJqyGSf MT0fGJYfVzL0TjIvIeLi XHBhclxwYXIgRGVlcGVy LYecisAffhHiPlLugA8f xjOpWmA3KXMkHPO8NSBj IHdlcmUgZXhhbWluZWQu YBYyHEBiiwjroG1isFJg jPEphl8ejNZwerNeNOic lfW5ylXrCL5yZOAuEGAg cn0= Diagnosis (test code = p3isqKIgWYVgjVK3TgEn 34) ZXCrz8mft0OxhMHouRRl TMdahUAgjzXqkf07cLE7 vE08VJ0pPEBkUqY7YPAq qfO5Sqv4DRNpCALlaAFi X115x3llx1ynkxCkxEB8 CFRhHXTlP7YpAK7jSWEl eVPcS63ixNOrTKP0JCHt WIFnqVMxERIiUWR2ASJj wIPnA0lwDPIkVM5cfcyj POgzUNidBQBhcHS9OHXl bPKmU0KaAQRfOBpnFBVk hby1FcOuPs9jcHGrfZmb MFxwYXJkXHBsYWluXGZz MkCcE7AsQI86mMOpHBCf KDIxOklTMTUzOCwgNiBT Pds6QCGyuywqSlKsoBQa XGxpNzIwXGxpbjcyMCBM VPN8ysvtFBKkC1k3CYPq gRMmsg6cYSgnIxxlaMX7 IChBKTpccGFyXGxpMTQ0 NSmykO8gHRRdFIFBNFTG E6GIIFJZGOkeG9HBQ4gB C61KFTEozJFfcAJam6Rv QHSgvfHvthGvf4qotmiq SZBpaXp5HfQvjPvyPsOu UYIqmpMPLSR1tfyxYTfr BfNvAZF4tUHlv3usHBCc iO1gj9goULOaColgYJIh mUslAERyLHskgrG9LJPa H3X4LZ7uaLVedZMtn0Va CExjoFcoM4vjr54kCiPx cbRgZS6dKSEkn92pXY4b F3O5hYNtMTQofxE9bM8y arofQOQynGg7CeJqwCxc UwTaDJInvoZLSJD2njop IPxzMtApWtTci4Flsh4f FJkwR19uPWleDdlexDJ2 IChDKTpccGFyXGxpMTQ0 JTqikK9dKSGgTZBmiBBf o8MnIE94F87fTQAdwiMf fRvdx4Qph4KyiWXmfgtj V9lolfDlYB1cX4X7iAMd CFRwvkL1xN6pujhyXFKa wLJvFLYstaJsX89NG7BT TlxwYXJ9 Utility Sales Representative(s) (test code w0egcTVxUPVphTC3KbUa = 9824) DXHeb3vky8ZddNLwcRYw RToccGUzsnXusm22vLV2 tE52FL7iGJMuNyB5JIWo saY9Fvw0THJpOMMljNGu I666w2nov4riizXzaZK3 mUjnCQLhutysLzV7OXjn ISPyrkpnQEa3EIitTBBs oLY2BOZbxMGsX1AsTZTz DM0ytfb5VVS8ZEhvZRLl KuV2BMYujCXvOEHqnHjl PWqxc555ZNG7LkCqOFQi etGuuLiffE3iGxVpJFQI hn0kUDkpgFGpmNOvZ0ns bGlhbXMgaGFzIHJldmll e0MfBCKffjDqVYCpkiMn S36kF2Pokg6naULjqW== [employer](s) (test q8zbkIYvPWAaqTG2GtGj code = 9841) YVTzi4tpv0BamAXoqZJd HTykcEWeikZdhv35iTN6 zC20UV0jTFRcIyS8XNSo bvR4Jgl0QVMkCKWziHTt F449m9hno4syabUzbFN2 fQrxTXPohpffCvQ1PIdp AZEbatcxAHh1MJetVIGt cNH1JYHqpQBiK8FyJDIk NO1ekgp6QMO3BDkbZGXz XkJ0GFKorVUfXBKjlPpr SXwmj776XDT1JgJsVBLp nbPwpZzvjO7zUeLlCSUE OiBBXHBhciBOOiBDXHBh cn0= Disclaimer (test code = w1rmqMUqSVUoqNFfPwWh 9844) OVNwMVKji9ciTGGesAWa ZzEwMzNcZnRuYmpcdWMx YQEjCrHsd2mkq658yAWr l2nfCMKcWhM1sXDbMCDc uONmR098UDBfOJhkj3xa q6PhRVNvnLIkb4X7PERY ocnyxRi9uKylJ95uc7D9 KlixV7buTKXxXQAsF1Gf MS3rUDGoHvg0SEI3EER7 UASoFPAoN6XhRN3nZKBx aQOzZMd6l3xlmBkoFOTd EXJ5d9ofXElvphDdID4i hm0ylXa2y6ehynEeUCDb KOFdrZZDQONnS8WeyHnh Ab9gkSf0nNapXjixAOR7 Xqq4NC2wlr76izf8mAul ZZOtyxtnCxH7QDzwEZRu jcoxLRc5KQgwSFDxzTE1 BOUwxRBjF7GdQDHjWF6n bpm4ZKO4CKtdGULuIkJ9 NDBcaGVhZGVyeTcyMFxm g133AMJ7YsAeNW5pK5Kn j1K5dU2neXCgCKWkaWMc VlWkOAJwsy7quZGxVQln g4QoLCR5gpR0rGRflHIi XOCvPF21Geyzb8ZbOffn VMN3XKMosdZsu0Fak3vq PdYzetDrT0npJ0NsIBQt CCBoWHCmPcOwdpDti3Dk d8JxrWHzvZf7s8beDZSz QABxsUwsb6whNMP9RWHt X7U7rLDwy0ykVXvzVNEc zHN4ygH2EUIaoFKnE1Yp rG0tYTEnXS7pdzq0j8ov VBV5ZKlqPAEuKgG1bjS9 NDBcaGVhZGVyeTcyMFxm h730UNU4NaNgYWKwp6Tm B2TkeWboG86lnDvjR23z UAJpjQlubQ3xvZrwuA3w ZjBcZnMyNFxxbFxwbGFp fursWWuugcZ0EHbrcvrf OVEsSYypL9rcDvDzUTQb rWjrDOxky4FuZNWeXPEq ZlrcxnV8DKKWb50dZPAj x3HhHYHlnM2mgDZcUWnj tgXruBP0AYxrjvUkXhYx vfUeVLJoiA0zHNOfOO8a MJDrewHrvc9zdvPdFAPk UQEgG0CbcvavzGemkyHz EYUzek5khxLeHIJ5VMEL NF6STKHcXMWzo21uNSNr sSyfoL0uzKYpcbKkTWYg u1JvkK3wsDNWURRaU6zw LM5hFVyco4SfsBBajYAn uZX4KIMow7MqVnBiioPt vLMtnKOjS0QlkXxyZ8qi CSYgOBAbimFaiFPvj9Zw KYJklDC7hHIaTY8FKsPN r70xOLHgQCGXpkGjTETt sGudpQD5tpL2jS2dMtKZ ZiBhcHBsaWNhYmxlLCBj e121yd5tfvJ1LGDtSGUt cuixs3SvUVBgEWLepW03 NOYcDFPncr1jdwiuoOLf ujMnR4Gvuum9iV0wURSu YWluXGYxXGZzMjJcbGFu ZzEwMzNcaGljaFxmMVxk NaKqKYDdJPppF3jdDoKd ZnMyMlxwYXJ9 [facility] (MAURA-CoV-2) PCR [id number] 01:46:37 Test Item Value Reference Interpretation Comments Range COVID19 SARS Pre-Out of OR Procedure Indication (test code = 95624) COVID19 SARS Result Not Detected Not Detected (test code = 59575-6) COVID19 SARS SARS-CoV-2 NOT Detected. Interpretation (test Reference Range: Not code = 03948) Detected Methodology: The [employer] RealTime SARS-CoV-2 assay is a qualitative real-time reverse retail analyst polymerase chain reaction (cambering machine operator-PCR) test to detect RNA from SARS-CoV-2 in nasal, nasopharyngeal and oropharyngeal swabs from patients with signs and symptoms of infection who are suspected of COVID-19 by their health care provider. The [employer]ane[employer] RealTime SARS-CoV-2 performed on the Flexuspine000 System is a dual target assay with [...] CLIA-certified, high-complexity Molecular Diagnostics Laboratory (MDL) at [facility] under the Food and Drug Administration (FDA) s Emergency Use Authorization. Factsheet for patients: https://www.[facility]erson.org/ AbbottFactSheetPatientsFact sheet for healthcare providers: https://www.[facility].org/ AbbottFactSheetHCP Test performed by:[facility] Molecular Diagnostic [id number] [place] [address] [facility] COVID-19 (MAURA-CoV-2) PCR [id number] 01:46:37 Test Item Value Reference Interpretation Comments Range COVID19 SARS Pre-Out of OR Procedure Indication (test code = 17856) COVID19 SARS Result Not Detected Not Detected (test code = 31029-5) COVID19 SARS SARS-CoV-2 NOT Detected. Interpretation (test Reference Range: Not code = 77592) Detected Methodology: The Fontane[employer] RealTime SARS-CoV-2 assay is a qualitative real-time reverse retail analyst polymerase chain reaction (cambering machine operator-PCR) test to detect RNA from SARS-CoV-2 in nasal, nasopharyngeal and oropharyngeal swabs from patients with signs and symptoms of infection who are suspected of COVID-19 by their health care provider. The [employer] RealTime SARS-CoV-2 performed on the Flexuspine000 System is a dual target assay with [...] CLIA-certified, high-complexity Molecular Diagnostics Laboratory (MDL) at [facility] under the Food and Drug Administration (FDA) s Emergency Use Authorization. Factsheet for patients: https://www.[facility].org/ AbbottFactSheetPatientsFact sheet for healthcare providers: https://www.[facility].org/ AbbottFactSheetHCP Test performed by:[facility] Molecular Diagnostic [id number] [place] [address] [facility] CenterGlucose, [id number] 18:55:04 Test Item Value Reference Range Interpretation Comments Glucose Random 136 mg/dL 70-199 Effective 12/03 12/17, the (test code = 9360) glucose r eference intervals have been updated based o n [employer] rommel delines (Standards of [...] (test code = Not fasting PEDRO LUIS) [facility] CenterVitamin D [id number] 18:49:59 Test Item Value Reference Range Interpretation Comments Vitamin D 25 OH (test 42 ng/mL 30-100 Refere nce Range: code = 8018) Deficiency: <10 ng/mLInsufficie ncy: 10-29 ng/mLSuff iciency: 30-100 ng/mLPot ential toxicity: >100 ng/mL [facility] Path [id number] 12:33:38 Test Item Value Reference Range Interpretation Comments HCV Ab Path There is NO Interp (test serologic evidence code = 8923) of Hepatitis C M AYRIN virus antibody. DELFINO FERNANDEZ,Dictated by: RUFINO FERNANDEZ,Dictated Date/Time: 05.04.2021 6:33 AM LIME KILN TENDER Transcribed Date/Time: 05.04.2021 6:33 AM CSTElectronical ly Signed By: JOSEPHINE IN DELFINO FERNANDEZ, on 05.04.2021 6:33 AM C [facility] HCV Ab Path [id number] 12:33:38 Test Item Value Reference Range Interpretation Comments HCV Ab Path There is NO Interp (test serologic evidence code = 8923) of Hepatitis C M AYRIN virus antibody. DELFINO FERNANDEZ,Dictated by: RUFINO FERNANDEZ,Dictated Date/Time: 05.04.2021 6:33 AM LIME KILN TENDER Transcribed Date/Time: 05.04.2021 6:33 AM CSTElectronical ly Signed By: JOSEPHINE IN SALEH FERNANDEZ, on 05.04.2021 6:33 AM C [facility] CenterHepatitis C Virus [id number] 05:13:47 Test Item Value Reference Range Interpretation Comments HCVAb. (test Non Reactive Non Reactive Antibody detect ion in the code = 5762) immunocompromis ed and immunosuppresse d population may be delayed or absent entirely. There fore serial testing, correl ation with other clinical findings, and supplementa l testing (if available) should be taken into cons ideration when interpreti ng the results.Perform ed at:[facility] Donor [id number] [place], [place] [address] [facility] CenterHepatitis C Virus [id number] 05:13:47 Test Item Value Reference Range Interpretation Comments HCVAb. (test Non Reactive Non Reactive Antibody detect ion in the code = 5762) immunocompromis ed and immunosuppresse d population may be delayed or absent entirely. There fore serial testing, correl ation with other clinical findings, and supplementa l testing (if available) should be taken into cons ideration when interpreti ng the results.Perform ed at:[facility] Don[facility] [id number] [place], [place] [address] [facility] [id number] 12:58:27 Test Item Value Reference Range Interpretation Comments POC Crea (test 1.2 mg/dL 0.6-1.3 Medications, code = 06911-1) especially hydroxyurea or supplements, gomez ch as ascorbate, can interfere with test results causing a falsely and significantly h igher result than exp ected. If a problem is suspected with a patient's resul t, [facility]. Method descript ion: [...] ally sensitive biose nsors on a silicon [employer] ip that are config ured to perform spec ific tests. The microfabricated sensors measure analyte concent ration by an electroch emical assay. POC eGFR-AA (test 70 See_Comment Normal eGF R >= 60 code = 32545-5) mL/min/1.73 m2 The eGFR is calcula mary [...] dialysi s) [Automated mess age] The system [employer] generated this result transmitted ref erence range: >=60 mL/min/1.73 m2. The reference range was not used to int erpret this result as normal/abnormal . POC eGFR-JOSELITO 60 See_Comment Normal eGFR >= 60 (test code = mL/min/1.73 m2 The 04415-6) eGFR is calcula mary using the CKD-E [...] dialysi s) [Automated mess age] The system [employer] generated this result transmitted ref erence range: >=60 mL/min/1.73 m2. The reference range was not used to int erpret this result as normal/abnormal . POC Clean Dev Yes (test code = 6672) Performing Lab Radiology OP CTR Radiology OP CTR (test code = [facility] [address]) [facility], [address], [place], [place] [address]; Point of Care L ab Director: Brooke valencia MD [facility] [place]
[2022-04-18 08:32] LABS: Absolute Lymphocytes (CBC) 0.6 K/uL (0.7-4.9); Hematocrit 23.9 % (39.6-49.0); Lymphocytes % 11.8 % (15.3-44.8); MCV 86.5 fL (80-100); MPV 8.9 fL (7.6-11.3); RBC Red Blood Cell Count 2.77 M/uL (4.33-5.43)
[2022-04-18 08:45] LABS: Potassium 4.6 mmol/L (3.5-5.1)
[2022-04-18 08:49] LABS: Protime INR 1.43
--- NOTE | 2022-04-18 09:29 | RAD REPORT ---
EXAM DESCRIPTION: CT - Soft Tissue Neck W/Contr CLINICAL HISTORY: recent larynx reconstruction, ant and post neck pain Neck pain COMPARISON: Soft Tissue Neck W/Contr dated 10/02/2021; Soft Tissue Neck Wo Contr dated 09/16/[address] scans are performed using dose optimization technique as appropriate and may includ e automated exposure control or mA/KV adjustment according to patient size. FINDINGS: Postsurgical changes are present involving the larynx. Moderate soft tissue swelling is pr esent in the surgical bed. Tracheostomy tube is in position. No localized fluid collections are evident. Small air and fluid collection is present along the base of the neck on the right measuring 18 mm presumably small postsurgical collection. Upper lung jerez are emphysematous. IMPRESSION: Complex postsurgical changes involving the neck are present. No complication definitivel y identified. Small 18 mm air and fluid collection is seen at the base of the neck the right, presumably postoperat sheron etiology. Tracheostomy tube is in place.
[2022-04-18 09:45] LABS: Anisocytosis 1+; Blood Morphology Comment NOTED (NOT SEEN); Platelet Estimate ADEQ; Platelets, Giant FEW PRESENT
--- NOTE | 2022-04-18 10:17 | EDPHYS ---
Physician Documentation [facility] Name: Roland Lam Age: 72 yrs Sex: Male : 1950 Arrival Date: 04/18/2022 Time: 07:39 Bed 3 Private MD: ED Physician Jair Fletcher HPI: 04/18 08:41 This 72 yrs old Male presents to ER via EMS with complaints of neck pain. rn 08:41 The patient or guardian complains of pain, swelling. The symptoms are located rn diffusely. Onset: The symptoms/episode began/occurred yesterday. Associated signs and symptoms: Pertinent negatives: fever, bladder incontinence, bowel incontinence, vomiting, weakness. The pain does not radiate. Modifying factors: The symptoms are alleviated by nothing. the symptoms are aggravated by nothing. Severity of symptoms: At their worst the symptoms were moderate, in the emergency department the symptoms are unchanged. The patient has not experienced similar symptoms in the past. The patient has been recently seen by a physician:. Pt 1 week s/p larynx reconstruction surgery at [facility], 2/2 cancer, is NPO, has feeding tube. Discharged 2 days ago. Comes in for increased pain that began yesterday, stats more on posterior neck and not anterior. No vomiting. no fever/chills. Just increased pain. No difficulty breathing.. Historical: - Allergies: 07:45 No Known Allergies; db - Home Meds: 08:50 amoxicillin-pot clavulanate 400-57 mg/5 mL Oral susr [Active]; apixaban 5 mg oral tab 1 db tab 2 times per day [Active]; aspirin 81 mg Oral chew 1 tab once daily [Active]; potassium chloride 20 mEq oral pack 2 packet 3 times per day [Active]; Senna Lax 8.6 mg oral tab 1 tabs 2 times daily for constipation [Active]; sodium chloride 0.9 % inhalation nebu three times a day [Active]; PreviDent 1.1 % dental gel twice a day [Active]; lansoprazole 30 mg oral suDR every morning [Active]; magnesium oxide 500 mg Oral tab daily [Active]; metformin 500 mg Oral tr24 [Active]; Zofran 8 mg Oral tab 1 tab every 8 hours [Active]; polyethylene glycol (bulk) 17 gram miscellaneous powd three times a day [Active]; rosuvastatin 40 mg oral tab nightly [Active]; thiamine HCl (vitamin B1) 100 mg Oral tab daily [Active]; Diabetisource AC 500 ml oral [Active]; gabapentin 300 mg oral cap 1 cap 3 times per day [Active]; acetaminophen 500 mg Oral tab every 6 hours [Active]; albuterol sulfate 90 mcg/actuation Inhl HFAA 2 puffs every 6 hours [Active]; amlodipine 10 mg tab 1 tab once daily [Active]; budesonide-formoterol 160-4.5 mcg/actuation inhalation HFAA 2 puffs 2 times per day [Active]; ferrous sulfate 325 mg (65 mg iron) Oral tab 1 tab once daily [Active]; - PMHx: 07:45 CAD; COPD; Diabetes - NIDDM; High Cholesterol; THROAT CA; db - PSHx: 07:45 throat surgery; db - Immunization history:: Adult Immunizations unknown, Client reports receiving the 2nd dose of the Covid vaccine. - Social history:: Smoking status: Patient/guardian denies using tobacco. - Family history:: not pertinent. - Hospitalizations: : No recent hospitalization is reported. ROS: 08:41 Constitutional: Negative for fever, chills, and weight loss, Eyes: Negative for injury, rn pain, redness, and discharge, Neck: + neck pain and swelling Cardiovascular: Negative for chest pain, palpitations, and edema, Respiratory: Negative for shortness of breath, cough, wheezing, and pleuritic chest pain, Abdomen/GI: Negative for abdominal pain, nausea, vomiting, diarrhea, and constipation, Back: Negative for injury and pain, MS/Extremity: Negative for injury and deformity, Skin: Negative for injury, rash, and discoloration, Neuro: Negative for headache, weakness, numbness, tingling, and seizure. Exam: 08:41 Constitutional: This is a well developed, well nourished patient who is awake, alert, rn and in no acute distress. Head/Face: Normocephalic, atraumatic. Eyes: Periorbital areas with no swelling, redness, or edema. ENT: dry MM, no stridor, tracheostomy in place without secretions. + submental swelling and ecchymosis, no purulence Neck: Trachea midline, + post-operative ecchymosis and swelling, equal swelling, tracheostomy midline. Cardiovascular: Regular rate and rhythm. No pulse deficits. Respiratory: No increased work of breathing, no retractions or nasal flaring. Abdomen/GI: Soft, non-tender Skin: Warm, dry MS/ Extremity: Pulses equal, no cyanosis. Neuro: Awake and alert, GCS 15 Vital Signs: 07:32 BP 154 / 59; Pulse 73; Resp 18; Temp 97.6(O); Pulse Ox 100% on R/A; Weight 72.12 kg; db Height 5 ft. 6 in. (167.64 cm); Pain 7/10; 08:44 BP 143 / 75; Pulse 67; Resp 14; Pulse Ox 97% on R/A; db 09:13 BP 141 / 87; Pulse 68; Resp 16; Pulse Ox 95% on R/A; db 10:30 BP 117 / 87; Pulse 64; Resp 18; Pulse Ox 96% on R/A; db 11:30 BP 122 / 66; Pulse 66; Resp 16; Pulse Ox 96% on R/A; db 07:32 Body Mass Index 25.66 (72.12 kg, 167.64 cm) db Mary Coma Score: 08:44 Eye Response: spontaneous(4). Verbal Response: oriented(5). Motor Response: obeys db commands(6). Total: 15. MDM: 07:39 Patient medically screened. rn 10:15 Differential diagnosis: arthritis, Cervical Raiculopathy cervical strain, torticollis, rn postoperative changes, swelling, infection. Data reviewed: vital signs, nurses notes, lab test result(s), radiologic studies, CT scan, and as a result, I will discharge patient. Counseling: I had a detailed discussion with the patient and/or guardian regarding: the historical points, exam findings, and any diagnostic results supporting the discharge/admit diagnosis, lab results, radiology results, the need for outpatient follow up, to return to the emergency department if symptoms worsen or persist or if there are any questions or concerns that arise at home. Special discussion: I discussed with the patient/guardian in detail that at this point there is no indication for admission to the hospital. It is understood, however, that if the symptoms persist or worsen the patient needs to return immediately for re-evaluation. ED course: CT neck only shows postoperative changes, no abnormal or unexpected changes, normal WBC, already on abx. Has been sleeping in chair and likely muscular pain/spasm in posterior neck from positioning and pain. Also, patient did not get his pain medication that was prescribed, was sent to wrong pharmacy. . 04/18 07:40 Order name: CBC with Diff; Complete Time: 09:48 rn 04/18 07:40 Order name: Basic Metabolic Panel; Complete Time: 08:58 rn 04/18 07:40 Order name: Protime (+inr); Complete Time: 08:58 rn 04/18 07:40 Order name: Ptt, Activated; Complete Time: 08:58 rn 04/18 07:40 Order name: CT Soft Tissue Neck W/contr; Complete Time: 09:30 rn 04/18 09:38 Order name: Manual Differential; Complete Time: 09:48 EDMS 04/18 07:40 Order name: IV Start; Complete Time: 08:21 rn Administered Medications: 10:47 Drug: NS 0.9% 500 ml Route: IV; Rate: bolus; Site: right antecubital; ph 11:34 Follow up: Response: No adverse reaction; IV Status: Completed infusion; IV Intake: db 500ml 10:49 Drug: morphine 2 mg Route: IVP; Infused Over: 4 mins; Site: right antecubital; ph 11:34 Follow up: Response: No adverse reaction db Disposition Summary: 04/18/22 10:17 Discharge Ordered Location: Home rn Problem: new rn Symptoms: have improved rn Condition: Stable rn Diagnosis - Post-operative neck pain and swelling rn Followup: rn - With: Private Physician - When: As needed - Reason: Recheck today's complaints, Re-evaluation by your physician Discharge Instructions: - Discharge Summary Sheet rn Forms: - Medication Reconciliation Form rn - Thank You Letter rn - Antibiotic jewel hole cornerer - Prescription Opioid Use rn Prescriptions: - acetaminophen-codeine 300 mg-30 mg /12.5 mL Oral solution - take 12.5 milliliter by FEEDING TUBE route every 6 hours As needed; 200 rn milliliter; Refills: 0, Product Selection Permitted Signatures: Dispatcher [employer] Jair Peoples MD MD rn Hall, Patricia, RN RN Gardenia Martinez, RN RN db Corrections: (The following items were deleted from the chart) 07:46 07:45 PMHx: throat surgery; db db 07:46 07:45 PSHx: no recent SX; db db
--- NOTE | 2022-04-18 10:17 | ER ---
Nurse's Notes [facility] Name: Roland Lam Age: 72 yrs Sex: Male : 1950 Arrival Date: 04/18/2022 Time: 07:39 Bed 3 Private MD: Diagnosis: Post-operative neck pain and swelling Presentation: 04/18 07:32 Chief complaint: EMS states: patient brought in by EMS with complaint of difficulty db breathing and increased swelling and pressure around neck, worse in back of neck, started last night. 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 Released from hospital yesterday Patient has stoma and stitches around. Coronavirus screen: Vaccine status: Patient reports receiving the 2nd dose of the covid vaccine. Client denies travel out of the [place] in the last 14 days. At this time, the client does not indicate any symptoms associated with coronavirus-19. Ebola Screen: Patient negative for fever greater than or equal to 101.5 degrees Fahrenheit, and additional compatible Ebola Virus Disease symptoms Patient denies exposure to infectious person. Patient denies travel to an Ebola-affected area in the 21 days before illness onset. No symptoms or risks identified at this time. Initial Sepsis Screen: Does the patient meet any 2 criteria? No. Patient's initial sepsis screen is negative. Does the patient have a suspected source of infection? No. Patient's initial sepsis screen is negative. Risk Assessment: Do you want to hurt yourself or someone else? Patient reports no desire to harm self or others. Onset of symptoms was April 18, 2022. 07:32 Method Of Arrival: EMS: [facility] db 07:32 Acuity: HOWARD 3 db Triage Assessment: 07:46 General: Appears in no apparent distress. uncomfortable, Behavior is calm, cooperative, db appropriate for age, quiet. Pain: Complains of pain in right groin area from skin graft. Neuro: No deficits noted. Level of Consciousness is awake, alert, obeys commands, Oriented to person, place, time, situation, Speech unable to talk due to recent laryngectomy. Cardiovascular: No deficits noted. Respiratory: Respiratory effort is even, unlabored, Respiratory pattern is regular, stoma midline, suctioned by per EMS prior to arrival Breath sounds are clear bilaterally. GI: No deficits noted. No signs and/or symptoms were reported involving the gastrointestinal system. : No deficits noted. No signs and/or symptoms were reported regarding the genitourinary system. Derm: Wound noted groin from skin graft. Musculoskeletal: No deficits noted. No signs and/or symptoms reported regarding the musculoskeletal system. Historical: - Allergies: 07:45 No Known Allergies; db - Home Meds: 08:50 amoxicillin-pot clavulanate 400-57 mg/5 mL Oral susr [Active]; apixaban 5 mg oral tab 1 db tab 2 times per day [Active]; aspirin 81 mg Oral chew 1 tab once daily [Active]; potassium chloride 20 mEq oral pack 2 packet 3 times per day [Active]; Senna Lax 8.6 mg oral tab 1 tabs 2 times daily for constipation [Active]; sodium chloride 0.9 % inhalation nebu three times a day [Active]; PreviDent 1.1 % dental gel twice a day [Active]; lansoprazole 30 mg oral suDR every morning [Active]; magnesium oxide 500 mg Oral tab daily [Active]; metformin 500 mg Oral tr24 [Active]; Zofran 8 mg Oral tab 1 tab every 8 hours [Active]; polyethylene glycol (bulk) 17 gram miscellaneous powd three times a day [Active]; rosuvastatin 40 mg oral tab nightly [Active]; thiamine HCl (vitamin B1) 100 mg Oral tab daily [Active]; Diabetisource AC 500 ml oral [Active]; gabapentin 300 mg oral cap 1 cap 3 times per day [Active]; acetaminophen 500 mg Oral tab every 6 hours [Active]; albuterol sulfate 90 mcg/actuation Inhl HFAA 2 puffs every 6 hours [Active]; amlodipine 10 mg tab 1 tab once daily [Active]; budesonide-formoterol 160-4.5 mcg/actuation inhalation HFAA 2 puffs 2 times per day [Active]; ferrous sulfate 325 mg (65 mg iron) Oral tab 1 tab once daily [Active]; - PMHx: 07:45 CAD; COPD; Diabetes - NIDDM; High Cholesterol; THROAT CA; db - PSHx: 07:45 throat surgery; db - Immunization history:: Adult Immunizations unknown, Client reports receiving the 2nd dose of the Covid vaccine. - Social history:: Smoking status: Patient/guardian denies using tobacco. - Family history:: not pertinent. - Hospitalizations: : No recent hospitalization is reported. Screenin:49 Abuse screen: Denies threats or abuse. Denies injuries from another. Nutritional db screening: No deficits noted. Tuberculosis screening: No symptoms or risk factors identified. Fall Risk None identified. No fall in past 12 months (0 pts). No secondary diagnosis (0 pts). No IV (0 pts). Ambulatory Aid- None/Bed Rest/Nurse Assist (0 pts). Gait- Normal/Bed Rest/Wheelchair (0 pts) Mental Status- Oriented to own ability (0 pts). Total Arnold Fall Scale indicates No Risk (0-24 pts). Assessment: 07:50 Reassessment: Patient appears in no apparent distress at this time. see triage db assessment for initial assessment. 08:47 Reassessment: Patient appears in no apparent distress at this time. Patient and/or db family updated on plan of care and expected duration. Pain level reassessed. Patient is alert, oriented x 3, equal unlabored respirations, skin warm/dry/pink. General: Appears in no apparent distress. comfortable, Behavior is calm, cooperative, appropriate for age, quiet. Neuro: No deficits noted. Level of Consciousness is awake, alert, obeys commands, Oriented to person, place, time, situation, Appropriate for age Speech is normal, Facial symmetry appears normal. Cardiovascular: No deficits noted. 10:49 Reassessment: D/C pending completion of IV fluids. ph Vital Signs: 07:32 BP 154 / 59; Pulse 73; Resp 18; Temp 97.6(O); Pulse Ox 100% on R/A; Weight 72.12 kg; db Height 5 ft. 6 in. (167.64 cm); Pain 7/10; 08:44 BP 143 / 75; Pulse 67; Resp 14; Pulse Ox 97% on R/A; db 09:13 BP 141 / 87; Pulse 68; Resp 16; Pulse Ox 95% on R/A; db 10:30 BP 117 / 87; Pulse 64; Resp 18; Pulse Ox 96% on R/A; db 11:30 BP 122 / 66; Pulse 66; Resp 16; Pulse Ox 96% on R/A; db 07:32 Body Mass Index 25.66 (72.12 kg, 167.64 cm) db Columbia Coma Score: 08:44 Eye Response: spontaneous(4). Verbal Response: oriented(5). Motor Response: obeys db commands(6). Total: 15. ED Course: 07:39 Patient arrived in ED. rn 07:39 Jair Fletcher MD is Attending Physician. rn 07:39 Gardenia Caicedo, RN is Primary Nurse. db 07:45 Triage completed. db 07:46 Arm band placed on left wrist. db 07:49 Patient has correct armband on for positive identification. Bed in low position. Call db light in reach. Side rails up X2. 08:30 Missed attempt(s): 22 gauge in right antecubital area. Bleeding controlled, band aid iw applied, catheter tip intact. 08:43 Inserted saline lock: 20 gauge in right antecubital area, using aseptic technique. iw 09:13 CT Soft Tissue Neck W/contr In Process Unspecified. EDMS 11:51 No provider procedures requiring assistance completed. IV discontinued, intact, db bleeding controlled, No redness/swelling at site. Administered Medications: 10:47 Drug: NS 0.9% 500 ml Route: IV; Rate: bolus; Site: right antecubital; ph 11:34 Follow up: Response: No adverse reaction; IV Status: Completed infusion; IV Intake: db 500ml 10:49 Drug: morphine 2 mg Route: IVP; Infused Over: 4 mins; Site: right antecubital; ph 11:34 Follow up: Response: No adverse reaction db Medication: 07:49 VIS not applicable for this client. db Intake: 11:34 IV: 500ml; Total: 500ml. db Outcome: 10:17 Discharge ordered by . rn 11:51 Discharged to home via wheelchair, with family. db 11:51 Condition: stable 11:51 Discharge instructions given to patient, significant other, Instructed on discharge instructions, Demonstrated understanding of instructions, Prescriptions given X 1. 11:53 Patient left the ED. db Signatures: Dispatcher [employer] EDMS Shana Hollingsworth RN RN iw Nieto, Roman, MD MD rn Hall, Patricia, RN RN ph Gardenia Caicedo, KWAN RN db Corrections: (The following items were deleted from the chart) 07:46 07:45 PMHx: throat surgery; db db 07:46 07:45 PSHx: no recent SX; db db
[2022-04-18] MEDS ORDERED: NA CHLORIDE 0.9% 500 ML ONE (10:39)
[2022-04-18] MEDS ORDERED: MORPHINE 2 MG/ML SYR ONE (10:39)
[2022-04-18 11:59] VITALS: O2SAT 96
[2022-04-18 12:00] VITALS: BP 122/66
== END 2022-04-18 11:53 | disposition home or self-care (01) ==
LOC: ER 07:36
DX: G89.18 Other acute postprocedural pain (principal); Z85.21 Personal history of malignant neoplasm of larynx; E11.9 Type 2 diabetes mellitus without complications; J44.9 Chronic obstructive pulmonary disease, unspecified; Z79.82 Long term (current) use of aspirin
CPT/HCPCS: 96361; 85025; 80048; 36415; 85610; 85730; 70491; 96374; 99284; Q9967; J2270; J7040